=== PATIENT | female | born 1960 | race Caucasian/White ===

== ENCOUNTER 2023-08-05 08:01 | Outpatient (CLI) | payer MEDICARE, OTHER, SELFPAY ==
[2023-08-05] MEDS: 0.9% NaCl IVPB Med Flush (250 mL) 15 ML IV (08:18)
[2023-08-05] MEDS: 0.9% NaCl Peripheral Flush Adult/Peds IV ×2 (08:18→09:21)
[2023-08-05] MEDS: Ertapenem Sod 1 GM in 0.9% Normal Saline (50mL MB+) 50 ML IV (08:18)
[2023-08-05 08:24] VITALS: BP 123/78; PULSE 52; RESP 16; TEMP 36.2; O2SAT 97; BMI 34.9
[2023-08-05 09:30] VITALS: BP 118/54; PULSE 50; RESP 16; TEMP 36.4; O2SAT 97
== END 2023-08-05 08:02 | disposition home or self-care (01) ==
PROVIDERS: PCP Nurse Practitioner
DX: M86.9 Osteomyelitis, unspecified (principal)
CPT/HCPCS: 96365; J7050; A4216

== ENCOUNTER 2023-08-06 07:56 | Outpatient (CLI) | payer MEDICARE, OTHER, SELFPAY ==
[2023-08-06] MEDS: Ertapenem Sod 1 GM in 0.9% Normal Saline (50mL MB+) 50 ML IV (08:33)
[2023-08-06] MEDS: 0.9% NaCl IVPB Med Flush (250 mL) 15 ML IV (08:33)
[2023-08-06] MEDS: 0.9% NaCl Peripheral Flush Adult/Peds IV ×2 (08:33→09:22)
[2023-08-06 09:16] VITALS: BP 141/68; PULSE 60; RESP 18; TEMP 36.6; O2SAT 97
== END 2023-08-06 09:30 | disposition home or self-care (01) ==
LOC: MEDOUTP 08:03 → MS3 08:08
PROVIDERS: PCP Nurse Practitioner; Referring Provider Internal Medicine Infectious Disease; Visit Provider Internal Medicine Infectious Disease
DX: M86.9 Osteomyelitis, unspecified (principal)
CPT/HCPCS: 96365; J7050; A4216

== ENCOUNTER 2023-08-07 08:01 | Outpatient (CLI) | payer MEDICARE, OTHER, SELFPAY | END 2023-08-07 08:40 | disposition other institution (70) | LOC: MEDOUTP 08:04 → MS3 08:05 | PROVIDERS: PCP Nurse Practitioner; Visit Provider Internal Medicine Infectious Disease | DX: Z00.00 Encounter for general adult medical examination without abnormal findings (principal) ==

== ENCOUNTER 2023-08-07 08:36 | Outpatient (CLI) | payer MEDICARE, OTHER, SELFPAY ==
[2023-08-07] MEDS: 0.9% NaCl IVPB Med Flush (250 mL) 15 ML IV (07:51)
[2023-08-07] MEDS: 0.9% NaCl PICC Flush IV ×2 (07:51→08:44)
[2023-08-07] MEDS: Ertapenem Sod 1 GM in 0.9% Normal Saline (50mL MB+) 50 ML IV (07:51)
[2023-08-07 07:58] VITALS: BP 161/85; PULSE 61; RESP 18; TEMP 36.8; O2SAT 97
== END 2023-08-07 08:45 | disposition home or self-care (01) ==
LOC: MEDOUTP 08:38 → MS3 08:43
PROVIDERS: PCP Nurse Practitioner; Referring Provider Internal Medicine Infectious Disease; Visit Provider Internal Medicine Infectious Disease
DX: M86.9 Osteomyelitis, unspecified (principal)
CPT/HCPCS: 96365; J7050; A4216

== ENCOUNTER 2023-08-08 08:33 | Outpatient (CLI) | payer MEDICARE, OTHER, SELFPAY ==
[2023-08-08 08:43] VITALS: BP 171/91; PULSE 63; RESP 16; TEMP 35.9; O2SAT 98
[2023-08-08] MEDS: 0.9% NaCl PICC Flush IV ×2 (08:53→09:55)
[2023-08-08] MEDS: Ertapenem Sod 1 GM in 0.9% Normal Saline (50mL MB+) 50 ML IV (08:53)
[2023-08-08] MEDS: 0.9% NaCl IVPB Med Flush (250 mL) 15 ML IV (08:53)
[2023-08-08 09:54] VITALS: BP 150/70; PULSE 56; RESP 16; TEMP 36.3; O2SAT 98
== END 2023-08-08 08:34 | disposition home or self-care (01) ==
LOC: MEDOUTP 08:33
PROVIDERS: PCP Nurse Practitioner; Referring Provider Internal Medicine Infectious Disease; Visit Provider Internal Medicine Infectious Disease
DX: M86.9 Osteomyelitis, unspecified (principal)
CPT/HCPCS: 96365; J7050; A4216

== ENCOUNTER 2023-08-09 08:23 | Outpatient (CLI) | payer MEDICARE, OTHER, SELFPAY ==
[2023-08-09] MEDS: 0.9% NaCl IVPB Med Flush (250 mL) 15 ML IV (08:31)
[2023-08-09] MEDS: Ertapenem Sod 1 GM in 0.9% Normal Saline (50mL MB+) 50 ML IV (08:32)
[2023-08-09] MEDS: 0.9% NaCl PICC Flush IV ×2 (08:32→09:29)
[2023-08-09 08:33] VITALS: BP 145/63; PULSE 62; RESP 16; TEMP 36; O2SAT 97
[2023-08-09 09:29] VITALS: BP 134/50; PULSE 60; RESP 16; TEMP 36.2; O2SAT 97
== END 2023-08-09 08:24 | disposition home or self-care (01) ==
LOC: MEDOUTP 08:23
PROVIDERS: PCP Nurse Practitioner; Referring Provider Internal Medicine Infectious Disease; Visit Provider Internal Medicine Infectious Disease
DX: M86.9 Osteomyelitis, unspecified (principal)
CPT/HCPCS: 96365; J7050; A4216

== ENCOUNTER 2023-08-10 08:25 | Outpatient (CLI) | payer MEDICARE, OTHER, SELFPAY ==
[2023-08-10] MEDS: 0.9% NaCl PICC Flush IV ×2 (08:31→09:32)
[2023-08-10] MEDS: Ertapenem Sod 1 GM in 0.9% Normal Saline (50mL MB+) 50 ML IV (08:31)
[2023-08-10] MEDS: 0.9% NaCl IVPB Med Flush (250 mL) 15 ML IV (08:31)
[2023-08-10 08:40] VITALS: BP 131/61; PULSE 56; RESP 16; TEMP 35.6; O2SAT 98; BMI 34.9
[2023-08-10 09:33] VITALS: BP 140/73; PULSE 62; RESP 16
== END 2023-08-10 08:26 | disposition home or self-care (01) ==
LOC: MEDOUTP 08:25
PROVIDERS: PCP Nurse Practitioner; Referring Provider Internal Medicine Infectious Disease; Visit Provider Internal Medicine Infectious Disease
DX: M06.9 Rheumatoid arthritis, unspecified (principal)
CPT/HCPCS: 96365; J7050; A4216

== ENCOUNTER 2023-08-11 08:35 | Outpatient (CLI) | payer MEDICARE, OTHER, SELFPAY ==
[2023-08-11] MEDS: 0.9% NaCl PICC Flush IV ×2 (08:48→10:05)
[2023-08-11] MEDS: Ertapenem Sod 1 GM in 0.9% Normal Saline (50mL MB+) 50 ML IV (08:48)
[2023-08-11] MEDS: 0.9% NaCl IVPB Med Flush (250 mL) 15 ML IV (08:48)
[2023-08-11 08:52] VITALS: BP 123/66; PULSE 57; RESP 16; TEMP 36.2; O2SAT 96; BMI 34.9
[2023-08-11 08:59] LABS: Hematocrit 36.5 % (37-47); Mean Corp Hgb Conc 32.9 g/dL (32-36); Mean Corpuscular Hgb 32.9 pg (27.0-32.0); Mean Platelet Vol. 10.1 fl (6.2-12.0); Platelet Count 240 K/mm3 (150-450); RBC Distribution Width SD 47.1 fl (35.1-43.9); Red Blood Count 3.65 M/mm3 (4.2-5.4); White Blood Count 6.6 K/mm3 (4.4-11.0)
[2023-08-11 09:15] LABS: ALB/GLOB Ratio 0.9 RATIO (0.9-2.4); AST(SGOT) 14 U/L (15-37); Alanine Aminotransfer ALT/SGPT 25 U/L (13-56); Albumin, Serum 3.3 g/dL (3.2-5.0); Alkaline Phosphatase 50 U/L (45-117); Anion Gap 6 (5-15); BUN 19 mg/dL (7-18); BUN/Creat Ratio 19.5 RATIO (10-20); CRP 7.19 mg/L (0.0-3.0); Calcium,Total 8.8 mg/dL (8.5-10.1); Chloride 106 mmol/L (98-107); Creatinine, Serum 0.97 mg/dL (0.55-1.02); EST Glomerular Filtration Rate 61 mL/min (>60); Est Glom Filt Rate - Afr Amer 74 mL/min (>60); Estimated Creatinine Clearance 52.03 ml/min; Globulin 3.6 g/dL (2.2-4.2); Glucose 101 mg/dL (74-106); Potassium 4.2 mmol/L (3.5-5.1); Protein, Total 6.9 g/dL (6.4-8.2); Sodium Level 139 mmol/L (136-145)
[2023-08-11 10:06] VITALS: BP 125/65; PULSE 60; RESP 16; TEMP 36.3; O2SAT 97
[2023-08-11 16:55] LABS: Xtra Tube EP Lab EXTRA TUBE
== END 2023-08-11 08:36 | disposition home or self-care (01) ==
LOC: MEDOUTP 08:35
PROVIDERS: PCP Nurse Practitioner; Referring Provider Internal Medicine Infectious Disease; Visit Provider Internal Medicine Infectious Disease
DX: M86.9 Osteomyelitis, unspecified (principal)
CPT/HCPCS: 96365; 80053; 85027; 86140; J7050; A4216

== ENCOUNTER 2023-08-12 08:24 | Outpatient (CLI) | payer MEDICARE, OTHER, SELFPAY ==
[2023-08-12] MEDS: 0.9% NaCl IVPB Med Flush (250 mL) 15 ML IV (08:37)
[2023-08-12] MEDS: 0.9% NaCl PICC Flush IV ×2 (08:37→09:44)
[2023-08-12] MEDS: Ertapenem Sod 1 GM in 0.9% Normal Saline (50mL MB+) 50 ML IV (08:37)
[2023-08-12 08:40] VITALS: BP 153/71; PULSE 61; RESP 16; TEMP 36.1; O2SAT 94
[2023-08-12 09:44] VITALS: BP 143/67; PULSE 63; RESP 16; TEMP 36.4; O2SAT 96
== END 2023-08-12 08:25 | disposition home or self-care (01) ==
LOC: MEDOUTP 08:24
PROVIDERS: PCP Nurse Practitioner; Referring Provider Internal Medicine Infectious Disease; Visit Provider Internal Medicine Infectious Disease
DX: M86.9 Osteomyelitis, unspecified (principal)
CPT/HCPCS: 96365; J7050; A4216

== ENCOUNTER 2023-08-13 08:46 | Outpatient (CLI) | payer MEDICARE, OTHER, SELFPAY ==
[2023-08-13] MEDS: Ertapenem Sod 1 GM in 0.9% Normal Saline (50mL MB+) 50 ML IV (09:21)
== END 2023-08-13 10:08 | disposition home or self-care (01) ==
LOC: MEDOUTP 08:46 → PCU 08:47
PROVIDERS: PCP Nurse Practitioner; Referring Provider Internal Medicine Infectious Disease; Visit Provider Internal Medicine Infectious Disease
DX: D64.9 Anemia, unspecified (principal); K92.2 Gastrointestinal hemorrhage, unspecified
CPT/HCPCS: 96365

== ENCOUNTER 2023-08-14 08:52 | Outpatient (CLI) | payer MEDICARE, OTHER, SELFPAY ==
[2023-08-14] MEDS: Ertapenem Sod 1 GM in 0.9% Normal Saline (50mL MB+) 50 ML IV (09:16)
== END 2023-08-14 09:57 | disposition home or self-care (01) ==
LOC: MEDOUTP 08:53 → PCU 08:53
PROVIDERS: PCP Nurse Practitioner; Referring Provider Internal Medicine Infectious Disease; Visit Provider Internal Medicine Infectious Disease
DX: M86.9 Osteomyelitis, unspecified (principal)
CPT/HCPCS: 96365

== ENCOUNTER 2023-08-15 08:27 | Outpatient (CLI) | payer MEDICARE, OTHER, SELFPAY ==
[2023-08-15] MEDS: 0.9% NaCl PICC Flush IV ×2 (08:35→09:41)
[2023-08-15] MEDS: 0.9% NaCl IVPB Med Flush (250 mL) 15 ML IV (08:36)
[2023-08-15 08:38] VITALS: BP 178/78; PULSE 59; RESP 16; TEMP 36.6
[2023-08-15] MEDS: Ertapenem Sod 1 GM in 0.9% Normal Saline (50mL MB+) 50 ML IV (08:42)
[2023-08-15 09:41] VITALS: BP 143/66; PULSE 56; RESP 16; TEMP 36.2
== END 2023-08-15 08:28 | disposition home or self-care (01) ==
LOC: MEDOUTP 08:27
PROVIDERS: PCP Nurse Practitioner; Referring Provider Internal Medicine Infectious Disease; Visit Provider Internal Medicine Infectious Disease
DX: M86.9 Osteomyelitis, unspecified (principal)
CPT/HCPCS: 96365; J7050; A4216

== ENCOUNTER 2023-08-16 08:38 | Outpatient (CLI) | payer MEDICARE, OTHER, SELFPAY ==
[2023-08-16 08:49] VITALS: BP 132/59; PULSE 73; RESP 16; TEMP 36.2; O2SAT 96
[2023-08-16] MEDS: 0.9% NaCl PICC Flush IV ×2 (08:54→09:46)
[2023-08-16] MEDS: Ertapenem Sod 1 GM in 0.9% Normal Saline (50mL MB+) 50 ML IV (08:54)
[2023-08-16] MEDS: 0.9% NaCl IVPB Med Flush (250 mL) 15 ML IV (08:54)
[2023-08-16 09:49] VITALS: BP 139/58; PULSE 65; RESP 16; TEMP 36.2; O2SAT 97
== END 2023-08-16 08:39 | disposition home or self-care (01) ==
LOC: MEDOUTP 08:38
PROVIDERS: PCP Nurse Practitioner; Referring Provider Internal Medicine Infectious Disease; Visit Provider Internal Medicine Infectious Disease
DX: M86.9 Osteomyelitis, unspecified (principal)
CPT/HCPCS: 96365; J7050; A4216

== ENCOUNTER 2023-08-17 08:25 | Outpatient (CLI) | payer MEDICARE, OTHER, SELFPAY ==
[2023-08-17] MEDS: 0.9% NaCl IVPB Med Flush (250 mL) 15 ML IV (08:31)
[2023-08-17] MEDS: 0.9% NaCl PICC Flush IV ×2 (08:31→09:33)
[2023-08-17] MEDS: Ertapenem Sod 1 GM in 0.9% Normal Saline (50mL MB+) 50 ML IV (08:33)
[2023-08-17 08:35] VITALS: BP 142/64; PULSE 61; RESP 16; TEMP 36.3; O2SAT 97
[2023-08-17 09:33] VITALS: BP 134/67; PULSE 65; RESP 16; TEMP 36.2; O2SAT 95
== END 2023-08-17 08:26 | disposition home or self-care (01) ==
LOC: MEDOUTP 08:25
PROVIDERS: PCP Nurse Practitioner; Referring Provider Internal Medicine Infectious Disease; Visit Provider Internal Medicine Infectious Disease
DX: M86.9 Osteomyelitis, unspecified (principal)
CPT/HCPCS: 96365; J7050; A4216

== ENCOUNTER 2023-08-18 08:31 | Outpatient (CLI) | payer MEDICARE, OTHER, SELFPAY ==
[2023-08-18] MEDS: 0.9% NaCl PICC Flush IV ×2 (08:53→09:49)
[2023-08-18] MEDS: Ertapenem Sod 1 GM in 0.9% Normal Saline (50mL MB+) 50 ML IV (08:53)
[2023-08-18] MEDS: 0.9% NaCl IVPB Med Flush (250 mL) 15 ML IV (08:53)
[2023-08-18 08:58] VITALS: BP 127/65; PULSE 58; RESP 16; TEMP 36.2; O2SAT 97; BMI 34.9
[2023-08-18 09:11] LABS: Hematocrit 36.3 % (37-47); Hemoglobin 11.7 g/dL (12.0-15.0); Mean Corp Hgb Conc 32.2 g/dL (32-36); Mean Corpuscular Hgb 31.9 pg (27.0-32.0); Mean Corpuscular Volume 98.9 fL (81-99); Mean Platelet Vol. 10.4 fl (6.2-12.0); Platelet Count 314 K/mm3 (150-450); RBC Distribution Width SD 46.1 fl (35.1-43.9); Red Blood Count 3.67 M/mm3 (4.2-5.4)
[2023-08-18 09:24] LABS: ALB/GLOB Ratio 0.9 RATIO (0.9-2.4); AST(SGOT) 17 U/L (15-37); Alanine Aminotransfer ALT/SGPT 27 U/L (13-56); Albumin, Serum 3.1 g/dL (3.2-5.0); Alkaline Phosphatase 55 U/L (45-117); Anion Gap 6 (5-15); BUN 17 mg/dL (7-18); BUN/Creat Ratio 18.1 RATIO (10-20); Chloride 105 mmol/L (98-107); Creatinine, Serum 0.94 mg/dL (0.55-1.02); EST Glomerular Filtration Rate 63 mL/min (>60); Est Glom Filt Rate - Afr Amer 77 mL/min (>60); Estimated Creatinine Clearance 53.69 ml/min; Globulin 3.6 g/dL (2.2-4.2); Glucose 111 mg/dL (74-106); Potassium 4.1 mmol/L (3.5-5.1); Protein, Total 6.7 g/dL (6.4-8.2); Sodium Level 139 mmol/L (136-145)
[2023-08-18 09:51] VITALS: BP 128/61; PULSE 65
[2023-08-18 17:05] LABS: Xtra Tube EP Lab EXTRA TUBE
== END 2023-08-18 08:32 | disposition home or self-care (01) ==
LOC: MEDOUTP 08:31
PROVIDERS: PCP Nurse Practitioner; Referring Provider Internal Medicine Infectious Disease; Visit Provider Internal Medicine Infectious Disease
DX: M86.9 Osteomyelitis, unspecified (principal)
CPT/HCPCS: 96365; 36415; 80053; 85027; 86140; J7050; A4216

== ENCOUNTER 2023-08-19 09:09 | Outpatient (CLI) | payer MEDICARE, OTHER, SELFPAY ==
[2023-08-19 09:19] VITALS: BP 142/75; PULSE 64; RESP 16; TEMP 36.2; O2SAT 96
[2023-08-19] MEDS: 0.9% NaCl IVPB Med Flush (250 mL) 15 ML IV (09:21)
[2023-08-19] MEDS: 0.9% NaCl PICC Flush IV ×2 (09:21→10:34)
[2023-08-19] MEDS: Ertapenem Sod 1 GM in 0.9% Normal Saline (50mL MB+) 50 ML IV (09:33)
[2023-08-19 10:34] VITALS: BP 135/60; PULSE 72
== END 2023-08-19 09:10 | disposition home or self-care (01) ==
LOC: MEDOUTP 09:09
PROVIDERS: PCP Nurse Practitioner; Referring Provider Internal Medicine Infectious Disease; Visit Provider Internal Medicine Infectious Disease
DX: M86.9 Osteomyelitis, unspecified (principal)
CPT/HCPCS: 96365; J7050; A4216

== ENCOUNTER 2023-08-20 08:37 | Outpatient (CLI) | payer MEDICARE, OTHER, SELFPAY ==
[2023-08-20] MEDS: Ertapenem Sod 1 GM in 0.9% Normal Saline (50mL MB+) 50 ML IV (08:53)
[2023-08-20] MEDS: 0.9% NaCl IVPB Med Flush (250 mL) 15 ML IV (08:55)
[2023-08-20] MEDS: 0.9% NaCl PICC Flush IV ×2 (08:56→09:44)
[2023-08-20 09:03] VITALS: BP 124/72; PULSE 67; RESP 17; TEMP 36.7; O2SAT 93
== END 2023-08-20 09:54 | disposition home or self-care (01) ==
LOC: MEDOUTP 08:38 → MS3 08:38
PROVIDERS: PCP Nurse Practitioner; Referring Provider Internal Medicine Infectious Disease; Visit Provider Internal Medicine Infectious Disease
DX: M86.9 Osteomyelitis, unspecified (principal)
CPT/HCPCS: 96365; J7050; A4216

== ENCOUNTER 2023-08-21 08:48 | Outpatient (CLI) | payer MEDICARE, OTHER, SELFPAY ==
[2023-08-21] MEDS: 0.9% NaCl PICC Flush IV ×2 (08:40→09:33)
[2023-08-21] MEDS: 0.9% NaCl IVPB Med Flush (250 mL) 100 ML IV (08:40)
[2023-08-21] MEDS: Ertapenem Sod 1 GM in 0.9% Normal Saline (50mL MB+) 50 ML IV (08:51)
[2023-08-21 08:55] VITALS: BP 122/69; PULSE 61; RESP 16; TEMP 36.6; O2SAT 97
== END 2023-08-21 09:38 | disposition home or self-care (01) ==
LOC: MEDOUTP 08:49 → MS3 08:49
PROVIDERS: PCP Nurse Practitioner; Referring Provider Internal Medicine Infectious Disease; Visit Provider Internal Medicine Infectious Disease
DX: M86.9 Osteomyelitis, unspecified (principal)
CPT/HCPCS: 96365; J7050; A4216

== ENCOUNTER 2023-08-22 08:25 | Outpatient (CLI) | payer MEDICARE, OTHER, SELFPAY ==
[2023-08-22 08:41] VITALS: BP 133/78; PULSE 62; RESP 16; TEMP 36.4; O2SAT 94; BMI 34.9
[2023-08-22] MEDS: 0.9% NaCl IVPB Med Flush (250 mL) 15 ML IV (08:55)
[2023-08-22] MEDS: Ertapenem Sod 1 GM in 0.9% Normal Saline (50mL MB+) 50 ML IV (08:55)
[2023-08-22 10:02] VITALS: BP 141/73; PULSE 64; RESP 16; TEMP 36.2; O2SAT 94
== END 2023-08-22 08:26 | disposition home or self-care (01) ==
LOC: MEDOUTP 08:25
PROVIDERS: PCP Nurse Practitioner; Referring Provider Internal Medicine Infectious Disease; Visit Provider Internal Medicine Infectious Disease
DX: M86.9 Osteomyelitis, unspecified (principal)
CPT/HCPCS: 96365; J7050; A4216

== ENCOUNTER 2023-08-23 08:32 | Outpatient (CLI) | payer MEDICARE, OTHER, SELFPAY ==
[2023-08-23 08:42] VITALS: BP 146/81; PULSE 70; RESP 16; TEMP 35.9; O2SAT 94; BMI 34.9
[2023-08-23] MEDS: Ertapenem Sod 1 GM in 0.9% Normal Saline (50mL MB+) 50 ML IV (08:45)
[2023-08-23] MEDS: 0.9% NaCl IVPB Med Flush (250 mL) 15 ML IV (08:45)
[2023-08-23] MEDS: 0.9% NaCl PICC Flush IV ×2 (08:45→09:41)
[2023-08-23 09:43] VITALS: BP 150/68; PULSE 71; RESP 16
== END 2023-08-23 08:33 | disposition home or self-care (01) ==
LOC: MEDOUTP 08:32
PROVIDERS: PCP Nurse Practitioner; Referring Provider Internal Medicine Infectious Disease; Visit Provider Internal Medicine Infectious Disease
DX: M86.9 Osteomyelitis, unspecified (principal)
CPT/HCPCS: 96365; J7050; A4216

== ENCOUNTER 2023-08-24 08:39 | Outpatient (CLI) | payer MEDICARE, OTHER, SELFPAY ==
[2023-08-24] MEDS: 0.9% NaCl IVPB Med Flush (250 mL) 15 ML IV (08:49)
[2023-08-24] MEDS: 0.9% NaCl PICC Flush IV ×2 (08:49→09:54)
[2023-08-24] MEDS: Ertapenem Sod 1 GM in 0.9% Normal Saline (50mL MB+) 50 ML IV (08:49)
[2023-08-24 08:55] VITALS: BP 148/58; PULSE 75; RESP 16; TEMP 36.3; O2SAT 97
[2023-08-24 09:55] VITALS: BP 151/88; PULSE 68; RESP 16; TEMP 36.3; O2SAT 97
== END 2023-08-24 08:40 | disposition home or self-care (01) ==
LOC: MEDOUTP 08:39
PROVIDERS: PCP Nurse Practitioner; Referring Provider Internal Medicine Infectious Disease; Visit Provider Internal Medicine Infectious Disease
DX: M86.9 Osteomyelitis, unspecified (principal)
CPT/HCPCS: 96365; J7050; A4216

== ENCOUNTER 2023-08-25 08:04 | Outpatient (CLI) | payer MEDICARE, OTHER, SELFPAY ==
[2023-08-25] MEDS: 0.9% NaCl PICC Flush IV ×2 (08:11→09:30)
[2023-08-25] MEDS: 0.9% NaCl IVPB Med Flush (250 mL) 15 ML IV (08:12)
[2023-08-25] MEDS: Ertapenem Sod 1 GM in 0.9% Normal Saline (50mL MB+) 50 ML IV (08:27)
[2023-08-25 08:29] VITALS: BP 162/63; PULSE 74; RESP 16; TEMP 36.4
[2023-08-25 08:38] LABS: Hematocrit 37.5 % (37-47); Hemoglobin 12.4 g/dL (12.0-15.0); Mean Corp Hgb Conc 33.1 g/dL (32-36); Mean Corpuscular Hgb 32.3 pg (27.0-32.0); Mean Corpuscular Volume 97.7 fL (81-99); Mean Platelet Vol. 10.6 fl (6.2-12.0); Platelet Count 228 K/mm3 (150-450); RBC Distribution Width CV 12.9 % (11.6-14.6); Red Blood Count 3.84 M/mm3 (4.2-5.4); White Blood Count 6.2 K/mm3 (4.4-11.0)
[2023-08-25 08:44] LABS: ALB/GLOB Ratio 0.9 RATIO (0.9-2.4); AST(SGOT) 20 U/L (15-37); Alanine Aminotransfer ALT/SGPT 29 U/L (13-56); Albumin, Serum 3.4 g/dL (3.2-5.0); Alkaline Phosphatase 55 U/L (45-117); Anion Gap 7 (5-15); BUN 14 mg/dL (7-18); CRP 8.67 mg/L (0.0-3.0); Calcium,Total 9.1 mg/dL (8.5-10.1); Chloride 103 mmol/L (98-107); EST Glomerular Filtration Rate 59 mL/min (>60); Est Glom Filt Rate - Afr Amer 71 mL/min (>60); Globulin 3.7 g/dL (2.2-4.2); Glucose 119 mg/dL (74-106); Potassium 4.3 mmol/L (3.5-5.1); Protein, Total 7.1 g/dL (6.4-8.2); Sodium Level 137 mmol/L (136-145)
[2023-08-25 09:30] VITALS: BP 139/57; PULSE 68; RESP 16; TEMP 36.6; O2SAT 96
== END 2023-08-25 08:05 | disposition home or self-care (01) ==
LOC: MEDOUTP 08:04
PROVIDERS: PCP Nurse Practitioner; Referring Provider Internal Medicine Infectious Disease; Visit Provider Internal Medicine Infectious Disease
DX: M86.9 Osteomyelitis, unspecified (principal)
CPT/HCPCS: 96365; 36592; 80053; 85027; 86140; J7050; A4216

== ENCOUNTER 2023-08-26 08:36 | Outpatient (CLI) | payer MEDICARE, OTHER, SELFPAY ==
[2023-08-26 08:47] VITALS: BP 146/79; PULSE 78; RESP 16; TEMP 36.1; O2SAT 96
[2023-08-26] MEDS: 0.9% NaCl PICC Flush IV ×2 (08:51→09:56)
[2023-08-26] MEDS: Ertapenem Sod 1 GM in 0.9% Normal Saline (50mL MB+) 50 ML IV (08:51)
[2023-08-26] MEDS: 0.9% NaCl IVPB Med Flush (250 mL) 15 ML IV (08:51)
[2023-08-26 09:58] VITALS: BP 152/53; PULSE 65; RESP 16; TEMP 36.2; O2SAT 98
== END 2023-08-26 08:37 | disposition home or self-care (01) ==
LOC: MEDOUTP 08:36
PROVIDERS: PCP Nurse Practitioner; Referring Provider Internal Medicine Infectious Disease; Visit Provider Internal Medicine Infectious Disease
DX: M86.9 Osteomyelitis, unspecified (principal)
CPT/HCPCS: 96365; J7050; A4216

== ENCOUNTER 2023-08-27 08:12 | Outpatient (CLI) | payer MEDICARE, OTHER, SELFPAY ==
[2023-08-27] MEDS: 0.9% NaCl IVPB Med Flush (250 mL) 15 ML IV (08:25)
[2023-08-27] MEDS: Ertapenem Sod 1 GM in 0.9% Normal Saline (50mL MB+) 50 ML IV (08:25)
[2023-08-27 08:33] VITALS: BP 134/78; PULSE 61; RESP 18; TEMP 36.4; O2SAT 99
[2023-08-27] MEDS: 0.9% NaCl PICC Flush IV (09:15)
== END 2023-08-27 09:20 | disposition home or self-care (01) ==
LOC: MEDOUTP 08:13 → MS3 08:17
PROVIDERS: PCP Nurse Practitioner; Referring Provider Internal Medicine Infectious Disease; Visit Provider Internal Medicine Infectious Disease
DX: M86.9 Osteomyelitis, unspecified (principal)
CPT/HCPCS: 96365; J7050; A4216

== ENCOUNTER 2023-08-28 08:02 | Outpatient (CLI) | payer MEDICARE, OTHER, SELFPAY ==
[2023-08-28] MEDS: Ertapenem Sod 1 GM in 0.9% Normal Saline (50mL MB+) 50 ML IV (08:06)
[2023-08-28] MEDS: 0.9% NaCl PICC Flush IV ×2 (08:07→08:57)
[2023-08-28] MEDS: 0.9% NaCl IVPB Med Flush (250 mL) 15 ML IV (08:07)
[2023-08-28 08:16] VITALS: BP 144/61; PULSE 77; RESP 18; TEMP 36.7; O2SAT 95
== END 2023-08-28 09:00 | disposition home or self-care (01) ==
LOC: MEDOUTP 08:02 → MS3 08:03
PROVIDERS: PCP Nurse Practitioner; Referring Provider Internal Medicine Infectious Disease; Visit Provider Internal Medicine Infectious Disease
DX: M86.9 Osteomyelitis, unspecified (principal)
CPT/HCPCS: 96365; J7050; A4216

== ENCOUNTER 2023-08-29 08:00 | Outpatient (CLI) | payer MEDICARE, OTHER, SELFPAY ==
[2023-08-29] MEDS: 0.9% NaCl IVPB Med Flush (250 mL) 15 ML IV (08:10)
[2023-08-29] MEDS: 0.9% NaCl PICC Flush IV ×2 (08:10→09:12)
[2023-08-29] MEDS: Ertapenem Sod 1 GM in 0.9% Normal Saline (50mL MB+) 50 ML IV (08:13)
[2023-08-29 08:14] VITALS: BP 137/60; PULSE 73; RESP 16; TEMP 36.5; O2SAT 95
[2023-08-29 09:13] VITALS: BP 133/76; PULSE 69; RESP 16; TEMP 36.4
[2023-08-29 09:16] LABS: Hematocrit 37.9 % (37-47); Hemoglobin 12.2 g/dL (12.0-15.0); Mean Corp Hgb Conc 32.2 g/dL (32-36); Mean Corpuscular Hgb 32.1 pg (27.0-32.0); Mean Corpuscular Volume 99.7 fL (81-99); Mean Platelet Vol. 10.7 fl (6.2-12.0); Platelet Count 194 K/mm3 (150-450); RBC Distribution Width CV 13.2 % (11.6-14.6); RBC Distribution Width SD 47.7 fl (35.1-43.9); White Blood Count 5.7 K/mm3 (4.4-11.0)
[2023-08-29 09:26] LABS: Erythrocyte Sedimentation Rate 17 mm/hr (0-30)
[2023-08-29 09:38] LABS: Anion Gap 9 (5-15); BUN 17 mg/dL (7-18); BUN/Creat Ratio 17.2 RATIO (10-20); Chloride 103 mmol/L (98-107); Creatinine, Serum 0.99 mg/dL (0.55-1.02); EST Glomerular Filtration Rate 60 mL/min (>60); Est Glom Filt Rate - Afr Amer 72 mL/min (>60); Glucose 194 mg/dL (74-106); Potassium 3.4 mmol/L (3.5-5.1); Sodium Level 140 mmol/L (136-145)
== END 2023-08-29 08:01 | disposition home or self-care (01) ==
LOC: MEDOUTP 08:00
PROVIDERS: PCP Nurse Practitioner; Referring Provider Internal Medicine Infectious Disease; Visit Provider Internal Medicine Infectious Disease
DX: M86.9 Osteomyelitis, unspecified (principal)
CPT/HCPCS: 96365; 36592; 80048; 85027; 85652; 86140; J7050; A4216

== ENCOUNTER 2025-09-14 15:53 | Inpatient (IN) | payer MEDICARE, OTHER, SELFPAY ==
[2025-09-14] VITALS (7 sets, daily range): BP systolic 96–142; BP diastolic 47–57; PULSE 55–70; RESP 16–20; TEMP 36.3–36.6; O2SAT 94–100; BMI 32.9; BMI 30.9
--- NOTE | 2025-09-14 16:56 | EDS_ITS ---
HPI History of Present Illness Chief Complaint: ETOH Intox Informant: patient and family Narrative Narrative: 65-year-old female presenting to the emergency room out of concerns for alcohol use disorder. Family states that she was found on the ground today intoxicated. Over the summer she was apparently pink slipped to a facility in [place]. She states there was a horrible experience for her and family concurs. Patient reportedly at that time had thoughts of suicide related to her 's recent suicide himself. She has had loss of an adult child and her daughter. She states that she does not take any blood thinners but previous chart notes that s he had been on Eliquis at 1 point. She states she has had a prior stroke. Patient denies any known trauma from her fall but is not clear how she got there. She states that she cannot drink because she wants to. She states that most days she does not drink until 2000 hours. However some days she drinks all day long. Over the past 3 days she states she has been mostly on the couch. When asked about her medical history she states that she has the basics. When asked to tell me what those basics are she tells me hypertension. Later she tells me that she has had a history of cancer non-Hodgkin's lymphoma CLL. When asked about her bowel movements she states that her normal. She got tell me black bloody formed liquid. Patient admits to drinking today. [facility] Medical History (Updated 09/14/25 @ 18:[address] 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 Home Medications ?Medication ?Instructions ?Recorded ?Last Taken ?Type magnesium oxide 400 mg (241.3 mg 400 mg PO DAILY 04/08 Unknown History magnesium) tablet omeprazole 20 mg capsule,delayed 20 mg PO DAILY Unknown History release pravastatin 40 mg tablet 40 mg PO DAILY 11/10/15 Unkn own History mometasone 220 mcg/actuation(60 220 mcg inhalation BID 02/04/16 Unknown History doses) breath activated powder inhaler (Asmanex Twisthaler) allopurinol 100 mg tablet 100 mg PO DAILY 08/05/23 Unk nown History baclofen 10 mg tablet 5 - 10 mg PO TID PRN PRN mus deonte 09/14/25 Unknown History spasm carvedilol 12.5 mg tablet 12.5 mg PO BID 09/14/25 Unkn own History cetirizine 10 mg tablet (24Hour 10 mg PO DAILY PRN all ergies 09/14/25 Unknown History Allergy) diazepam 5 mg tablet 5 mg PO TID 09/14/25 Unknown History fenofibrate 160 mg tablet 160 mg PO DAILY 09/14/25 Unk nown History folic acid 1 mg tablet 1 mg PO DAILY 09/14/25 Unkno wn History omega-3 acid ethyl esters 1 gram 2 cap PO BID 09/14/25 Unknown History capsule pantoprazole 40 mg tablet,delayed 40 mg PO BID 5 Unknown History release trazodone 100 mg tablet 100 mg PO QHS 09/14/25 Unkno wn History triamterene 37.5 1 cap PO DAILY 09/14/25 Unkn own History mg-hydrochlorothiazide 25 mg capsule Allergy/AdvReac Type Severity Reaction Status Date / Time No Known Allergies Allergy Verified 09/14/25 15:59 Social History Smoking Status: Never smoker ROS ROS ED Constitutional Constitutional ED: Denies chills or weight loss Eyes Eyes: Denies change in vision or diplopia ENT ENT ED: Denies ear pain, rhinorrhea or sore throat Cardiovascular Cardiovascular: Denies chest pain, orthopnea, palpitations or racing heartbeat Respiratory/Chest Respiratory/Chest: Denies cough, dyspnea or orthopnea Gastrointestinal Gastrointestinal: Denies abdominal pain, diarrhea, nausea or vomiting Genitourinary Genitourinary ED: Denies dysuria, hematuria or urinary frequency Musculoskeletal Musculoskeletal: Denies arthralgias or myalgias Integumentary Denies abscess or rash Neurologic Neurologic: Denies headache(s) or weakness Psychiatric Psychiatric: Reports anxiety and depression; Denies suicidal ideation or suicidal thoughts Endocrine Endocrinology: Denies polydipsia, polyphagia or polyuria Allergic/Immunologic Allergic/Immunologic ED: Denies mouth swelling, tongue swelling or urticaria EXAM Physical Exam Const Vital Signs: 09/14/25 15:55 09/14/25 16:55 09/14/25 17:00 Temperature 97.4 F L Temperature Source Temporal Pulse Rate 55 L 62 64 Respiratory Rate 16 18 18 Blood Pressure 96/47 L 113/53 L 113/53 L Blood Pressure Mean 63 73 73 Pulse Ox 96 100 99 Oxygen Delivery Method Room Air Room Air 09/14/25 17:45 09/14/25 18:00 Temperature Temperature Source Pulse Rate 64 70 Respiratory Rate 17 16 Blood Pressure 103/55 L 117/53 L Blood Pressure Mean 69 74 Pulse Ox 99 99 Oxygen Delivery Method Room Air Positive well nourished, well developed and obese General Appearance ED: well developed and NAD Nutritional Appearance: obese HEENT Reports normocephalic, head/scalp atraumatic and moist mucous membranes Eyes PERRL and EOMs intact bilaterally Neck no lymphadenopathy, supple and no JVD Resp normal respiratory effort and clear to auscultation bilaterally Cardio regular rate, regular rhythm and no murmurs GI normal to inspection, nondistended, normoactive bowel sounds and non-tender Palpation: soft Back/Spine no CVA tenderness and normal ROM Extremity normal to inspection General Extremety ED: Negative for edema General Extremity: Negative for edema Neuro oriented x3 and CN's II-XII intact bilaterally Neuro Narrative: Patient does slur her words. She appears intoxicated with alcohol. Sensorium / Orientation: alert Motor Exam: strength 5/5 throughout Psych Mood & Affect: depressed, anxious and tearful Skin no rashes or lesions noted and no wounds MDM MDM MDM Narrative Medical decision making narrative: Differential diagnosis includes but not limited to alcohol use disorder alcohol withdrawal thrombocytopenia coagulopathy liver dysfunction Co. ingestion electrolyte abnormalities Basic blood work was obtained shows a white count 3.8 hemoglobin 13 platelet count is 185. Slight elevation in the AST and ALT normal bilirubin. Normal INR. Toxicology shows a alcohol level of 199. Positive for benzodiazepines but she has prescribed them. Patient agrees to the inpatient rules at this time for alcohol detox program. History & Record Review Discussion w/independent historian: Patient Lab Data Attestation: I reviewed the patient's lab results. Labs: Laboratory Results - last 24 hr 09/14/25 09/14/25 17:06 17:38 WBC 3.8 L RBC 4.16 L Hgb 13.0 Hct 39.7 MCV 95.4 MCH 31.3 MCHC 32.7 RDW Std Deviation 51.9 H RDW Coeff of Jerrod 14.7 H Plt Count 185 MPV 9.8 Immature Gran % (Auto) 0.300 Neut % (Auto) 32.2 L Lymph % (Auto) 56.9 H [place] % (Auto) 9.0 Eos % (Auto) 0.5 Baso % (Auto) 1.1 H Absolute Neuts (auto) 1.2 L Absolute Lymphs (auto) 2.14 Nucleated RBC % 0 PT 12.7 INR 0.9 Sodium 135 Potassium 3.8 Chloride 97 L Carbon Dioxide 24.8 Anion Gap 13 BUN 6 Creatinine 0.73 Estim Creat Clear Calc 75.49 Est GFR (MDRD) Non-Af 91 BUN/Creatinine Ratio 8.1 L Glucose 100 H Calcium 8.7 Magnesium 1.9 Total Bilirubin 0.23 Direct Bilirubin 0.15 AST 55 H ALT 40 H Alkaline Phosphatase 80 Total Protein 6.4 Albumin 3.9 Globulin 2.5 Urine Color Yellow Urine Clarity Clear Urine pH 7.0 Ur Specific [place] 1.010 Urine Protein Negative Urine Glucose (UA) Normal Urine Ketones Negative Urine Occult Blood Negative Urine Nitrite Negative Urine Bilirubin Negative Urine Urobilinogen Normal Ur Leukocyte Esterase Negative Urine RBC Not Reportable Urine WBC 0-5 SEEN Ur Squamous Epith Cells 0-5 SEEN Urine Bacteria RARE Urine Mucus 0 SEEN Urine Opiates Screen NEGATIVE U Buprenorphine Qual NEGATIVE Ur Oxycodone Screen NEGATIVE Urine Methadone Screen NEGATIVE Urine Fentanyl Screen NEGATIVE Ur Barbiturates Screen NEGATIVE Ur Phencyclidine Scrn NEGATIVE Ur Amphetamines Screen NEGATIVE U Benzodiazepines Scrn PRESUMPTIVE POSITIVE Urine Cocaine Screen NEGATIVE U Cannabinoids Screen NEGATIVE Ethyl Alcohol 199.0 H Management Discussion w/another healthcare provider: Hospitalist (Dr. Orozco) Discharge Plan Dx/Rx/DC Orders Clinical Impression: Alcohol intoxication, Alcohol use disorder Disposition Disposition: Acute Care Hospital [facility]
--- OUTSIDE RECORDS SUMMARY | 2025-09-14 17:03 | XMS RPT_ITS | CCD ---
Author Organization [facility] ion Partnership [facility] Care Team Providers Care Switchboard Installer Name Role Phone Elaine Oquendo Unavailable Erich Garcia Unavailable Stu Lei Unavailable Skyler Joya Unavailable Myrtle Kay Unavailable Unavailable Dragan Weiner Unavailable Unavailable Unavailable Unavailable Fernie Paredes DO Primary Care Provider Aftab Hernández Unavailable [phone] Naty Bhakta MD Unavailable [phone] Fernie Paredes DO Primary Care Provider Fernie Paredes Unavailable Aftab Hernández Unavailable Naty Bhakta MD Unavailable [phone] Fernie Paredes DO Primary Care Provider Roxann Yan MD Primary Care Provider Fernie Paredes Unavailable Unavailable Larry Ervin Unavailable Unavailabl Roxann Dahl MD Primary Care Provider Fernie Paredes DO Primary Care Provider Zakiya, Dr. Isreal Burrell Attending Kevin Faith, Dr. Fernie Slaughter Primary Care Rosy Paredes, Dr. Fernie Slaughter Primary Care Rosy Sigala, Dr. Isreal Burrell Attending Kevin Faith, Dr. Fernie Slaughter Primary Care Rosy Sigala, Dr. Isreal Burrell Attending Kevin Faith, Dr. Fernie Slaughter Primary Care Unava ilable Siegal, Dr. Isreal Burrell Attending Unavailab le Siegal, Dr. Isreal Burrell Attending Unavailab le Reggie, Dr. Fernie Slaughter Primary Care Unava ilable Siegal, Dr. Isreal Burrell Attending Unavailab le Reggie, Dr. Fernie Slaughter Primary Care Unava ilable Siegal, Dr. Isreal Burrell Attending Unavailab le Reggie, Dr. Fernie Slaughter Primary Care Unava ilable LeMLarry del toro Attending Unavaila ble Brown, Dr. Fernie Slaughter Primary Care Unava ilable Siegal, Dr. Isreal Burrell Attending Unavailab le Reggie, Dr. Fernie Slaughter Primary Care Unava ilable Siegal, Dr. Isreal Burrell Attending Unavailab miguel angel Paredes, Dr. Fernie Slaughter Primary Care Marthava ilFERNIE Henderson Primary Care Unavailable JESUSITA SCHREIBER Attending UnavailASAD Alcazar Attending Marthava ilFERNIE Henderson Primary Care Unavailable Jerzy PERKINS, Aftab Mcgill Unavailable Naty Bhakta MD Unavailable [phone] Fernie Paredes DO Primary Care Provider [phone] Fernie Paredes DO Primary Care Provider Unavail able Akua Warren OD Unavailable [phone] Perry Reyna Unavailable [phone] Fernie Paredes DO Primary Care Provider Cies[employer]OD[employer], [facility] Primary Care Unavailable Bre, Monse Referring Unavailable [place], Monse Attending Unavailable [employer], [facility] Primary Care Unavailable [place], Monse Attending Unavailable Bre, Monse Referring Unavailable [employer]OD[employer], [facility] Primary Care Unavailable Bre, Monse Attending Unavailable Bre, Monse Referring Unavailable Bre, Monse Attending Unavailable [employer]OD[employer], [facility] Primary Care Unavailable [place], Monse Referring Unavailable [employer] PROD[employer]ER, [facility] Care Unavailable Bre, Monse Attending Unavailable [place], Monse Referring Unavailable [employer]OD[employer], [facility] Primary Care Unavailable [place], Monse Referring Unavailable Bre, Monse Attending Unavailable [employer]OD[employer], Elaine Primary Care Unavailable Bre, Monse Referring Unavailable Bre, Monse Attending Unavailable [employer]OD[employer], [facility] Unavailable Bre, Monse Referring Unavailable Bre, Monse Attending Unavailable [employer], [facility] Unavailable [place], Monse Referring Unavailable [place], Monse Attending Unavailable [employer], [facility] Unavailable Bre, Monse Referring Unavailable Bre, Monse Attending Unavailable [employer]OD[employer], [facility] Care Unavailable [place], Monse Referring Unavailable Bre, Monse Attending Unavailable [employer]OD[employer], [facility] Unavailable [place], Monse Attending Unavailable [place], Monse Referring Unavailable [employer], [facility] Unavailable JOHN, ADAMSON Attending Unavailable JOHN, ADAMSON Referring Unavailable [employer]OD[employer], [facility] Unavailable [place], Monse Attending Unavailable Bre, Monse Referring Unavailable [employer]OD[employer], [facility] Unavailable [place], Monse Referring Unavailable Bre, Monse Attending Unavailable [employer]OD[employer], [facility] Unavailable Bre, Monse Referring Unavailable [place], Monse Attending Unavailable [employer], [facility] Unavailable [place], Monse Referring Unavailable [place], Monse Attending Unavailable [employer]OD[employer], [facility] Unavailable [place], Monse Attending Unavailable Bre, Monse Referring Unavailable [employer] PROD[employer], [facility] Care Unavailable [place], Monse Referring Unavailable [place], Monse Attending Unavailable [employer]OD[employer], [facility] Unavailable Bre, Monse Attending Unavailable Bre, Monse Referring Unavailable [employer]OD[employer], [facility] Unavailable [place], Monse Attending Unavailable Bre, Monse Referring Unavailable Bre, Monse Attending Unavailable [employer], [facility] Unavailable [place], Monse Referring Unavailable [employer], [facility] Unavailable Bre, Monse Attending Unavailable EDDI RANDHAWA Referring Unavailable FERNIE PAREDES Primary Care Unavailable MANOHAR RAO Attending Unavailable ROGELIO TORIBIO Consulting Unavailabl LUKE Colbert Admitting Unavailable FERNIE PAREDES Primary Care Unavailable FERNIE PAREDES Primary Care Unavailable ELANA GARCIA Admitting Unavailable DEONDRE LORENZ M.D. Consulting Unavailabl MARTELL Osorio Attending Unavailable Aftab Hernández Unavailable Naty Bhakta MD Unavailable [phone] Fernie Paredes DO M Primary Care Provider Brown DO Fernie M. Primary Care Provider Yumiko Delilah DAVALOS Skyler Unavailable [phone] BROWN FERNIE M. Primary Care Unavailable NEGRITO, ATISH P Referring Unavailable NEGRITO, ATISH P Attending Unavailable BROWN, FERNIE M. Primary Care Unavailable BROWN, FERNIE M. Primary Care Unavailable NEGRITO, ATISH P Attending Unavailable NEGRITO, ATISH P Admitting Unavailable BROWN, FERNIE M. Primary Care Unavailable NEGRITO, ATISH P Referring Unavailable NEGRITO, ATISH P Attending Unavailable BROWN, FERNIE M. Primary Care Unavailable BROWN, FERNIE M. Primary Care Unavailable AGUILAR ALEXANRDA Referring Unavailable Brown DO Fernie M Primary Care Provider NATY BHAKTA Attending Unavailable BROWN, FERNIE M Referring Unavailable BROWN, FERNIE M Primary Care Unavailable Lucinda Hernándezd M Unavailable [phone] NEGRITO, ATISH P Attending Unavailable BROWN, FERNIE M. Primary Care Unavailable BROWN, FERNIE M. Primary Care Unavailable KENTOSHROSE MARY Attending Unavaila ble BROWN, FERNIE M. Primary Care Unavailable KENTOSHROSE MARY Attending Unavaila ble BROWN, FERNIE M. Primary Care Unavailable KENTOSHROSE MARY Attending Unavaila ble BROWN, FERNIE M. Primary Care Unavailable BRIAN BRUSH Attending Unavailable BROWN, FERNIE M. Primary Care Unavailable BRIAN BURSH Attending Unavailable BROWN, FERNIE M. Primary Care Unavailable AGUILAR ALEXANDRA Attending Unavailable SIEGAL, ISREAL Referring Unavailable SIEGAL, ISREAL Attending Unavailable BROWN, FERNIE M Primary Care Unavailable SIEGAL, ISREAL Referring Unavailable SIEGAL, ISREAL Attending Unavailable BROWN, FERNIE M Primary Care Unavailable STEPHENS, GARRY S Attending Unavailable BROWN, FERNIE M Primary Care Unavailable STEPHENS, GARRY S Referring Unavailable SIEGAL, ISREAL Attending Unavailable SIEGAL, ISREAL Admitting Unavailable BROWN, FERNIE M Primary Care Unavailable Lucinda Hernándezd M Unavailable Naty Bhakta MD Unavailable [phone] Reggie DO Fernie M Primary Care Provider [phone] Aftab Hernández Unavailable Unavailabl e Reggie DAVALOS, Fernie Slaughter Primary Care Provider Fernie Paredes DO Primary Care Provider SILVIA MCNEILL Attending Unavailable GONSALO BLACKWOOD Referring Unavailable BROWN, FERNIEALEKSANDAR WORRELLCAI Primary Care Unavailab GONSALO Norman Referring Unavailable BROWN, FERNIE ANAIDCAPrema Primary Care Unavailab SILVIA Martin Attending Unavailable GONSALO BLACKWOOD Referring Unavailable BROWN, FERNIE ANAIDCAI Primary Care Unavailab SILVIA Martin Attending Unavailable GONSALO BLACKWOOD Referring Unavailable BROWN, FERNIEALEKSANDAR WORRELLCAPrema Primary Care Unavailab SILVIA Martin Attending Unavailable GONSALO BLACKWOOD Referring Unavailable BROWN, FERNIEALEKSANDAR WORRELLCAI Primary Care Unavailab SILVIA Martin Attending Unavailable GONSALO BLACKWOOD Referring Unavailable BROWN, FERNIEALEKSANDAR WORRELLCAI Primary Care Unavailab SILVIA Martin Attending Unavailable GONSALO BLACKWOOD Referring Unavailable BROWN, FERNIEALEKSANDAR ISSADECAI Primary Care Unavailab SILVIA Martin Attending Unavailable GONSALO BLACKWOOD Referring Unavailable BROWN, FERNIEALEKSANDAR ISSADECAI Primary Care Unavailab le BROWN, FERNIEALEKSANDAR ISSADECAI Primary Care Unavailab LIANG Valdez Attending Unavailable ARTUROGALISREAL Referring Unavailable BROWN, FERNIE MAEGANDECAI Primary Care Unavailab le SIEGALISREAL Referring Unavailable BROWN, FERNIEALEKSANDAR ISSADECAI Primary Care Unavailab SILVIA Martin Attending Unavailable SIEGALISREAL Referring Unavailable BROWN, FERNIE MORDECAI Primary Care Unavailab le SIEGALISREAL Referring Unavailable BROWN, FERNIE MORDECAI Primary Care Unavailab le SIEGALISREAL Referring Unavailable BROWN, FERNIEALEKSANDAR ISSADECAI Primary Care Unavailab le SIEGALISREAL D Referring Unavailable BROWN, FERNIE MORDECAI Primary Care Unavailab le SIEGALISREAL Referring Unavailable BROWN, FERNIE MORDECAI Primary Care Unavailab le SIEGAL ISREAL D Referring Unavailable BROWN, FERNIE MORDECAI Primary Care Unavailab le BROWN, FERNIE MORDECAI Primary Care Unavailab le GONSALO BLACKWOOD Referring Unavailable GONSALO BLACKWOOD Referring Unavailable BROWN, FERNIE MORDECAI Primary Care Unavailab le FOSTER, GONSALO REY Referring Unavailable BROWN, FERNIE SLAUGHTER Primary Care Unavailab le FOSTER, GONSALO REY Referring Unavailable BROWN, FERNIE WORRELLCAI Primary Care Unavailab le FOSTER, GONSALO REY Referring Unavailable BROWN, FERNIE ISSADECAI Primary Care Unavailab le FOSTER, GONSALO REY Referring Unavailable BROWN, FERNIE WORRELLCAPrema Primary Care Unavailab le FOSTER, GONSALO REY Referring Unavailable BROWN, FERNIE MORJENNYCAPrema Primary Care Unavailab le Akua Warren OD Unavailable CIRO LYLES Attending Unavailable LYLESKUSHALCIRO K Referring Unavailable REGGIE, FERNIE M Primary Care Unavailable LYLESCIRO Attending Unavailable JASWINDER GARZA Referring Unavailable REGGIE, FERNIE M Primary Care Unavailable LYLESCIRO Attending Unavailable LYLES, CIRO K Referring Unavailable REGGIE, FERNIE M Primary Care Unavailable Livia OJEDA, Naty Frost Unavailable Fernie Paredes DO Primary Care Provider [phone] Aftab Hernández Unavailable Naty Bhakta MD Unavailable FERNIE PAREDES M Primary Care Unavailable ISREAL SIGALA Referring Unavailable ISREAL SIGALA Attending Unavailable SHANNAN KATE Referring Unavailable KESHAWN NUNEZ Attending Unavailable REGGIE, FERNIE M Primary Care Unavailable BROWN, FERNIE M Primary Care Unavailable KATINA WILLIAM Referring Unavailable DEEPALI JOE Attending Unavailable REGGIE, FERNIE M Primary Care Unavailable MONSE SHIPLEY Referring Unavailable MONSE SHIPLEY F Attending Unavailable BROWN, FERNIE M Primary Care Unavailable MONSE SHIPLEY F Attending Unavailable DAWN URIARTE Referring Unavailable BROWN, FERNIE M Referring Unavailable BROWN, FERNIE M Primary Care Unavailable BROWN, FERNIE M Attending Unavailable BROWN, FERNIE M Primary Care Unavailable SELF, SELF Referring Unavailable GONSALO BLACKWOOD Attending Unavailable BROWN, FERNIE M Primary Care Unavailable GONSALO BLACKWOOD Attending Unavailable ELVIN GONSALO Referring Unavailable BROWN, FERNIE M Primary Care Unavailable KATINA STRONG Referring Unavailable DELILAH CALDERON Attending Unavailable BROWN, FERNIE M Primary Care Unavailable FERNANDO DAVISON Attending Unavailable SELF, SELF Referring Unavailable BROWN, FERNIE M Primary Care Unavailable BROCWELL, SHI M Attending Unavailable BROCorwinWELL, SHI M Referring Unavailable BROWN, FERNIE M Primary Care Unavailable GONSALO BLACKWOOD Admitting Unavailable GONSALO BLACKWOOD Attending Unavailable BROWN, FERNIE M Primary Care Unavailable ISREAL SIGALA Attending Unavailable ISREAL SIGALA Referring Unavailable BROWN, FERNIE M Referring Unavailable BROWN, FERNIE M Primary Care Unavailable EMJAVIER HAIRSTON., DELILAH Crawley Attending Unavailanders e BROWN, FERNIE M Primary Care Unavailable SELF, SELF Referring Unavailable DAWN URIARTE Attending Unavailable BROWN, FERNIE M Primary Care Unavailable KATINA WILLIAM Attending Unavailable KATINA WILLIAM Referring Unavailable BROWN, FERNIE M Primary Care Unavailable ISREAL SIGALA Referring Unavailable NATALIIA, KATINA Kidd Attending Unavailable BROWN, FERNIE M Attending Unavailable BROWN, FERNIE M Referring Unavailable BROWN, FERNIE M Primary Care Unavailable BROWN, FERNIE M Primary Care Unavailable DAWN URIARTE Attending Unavailable DAWN URIARTE Referring Unavailable BROWN, FERNIE M Attending Unavailable BROWN, FERNIE M Referring Unavailable BROWN, FERNIE M Primary Care Unavailable BROWN, FERNIE M Attending Unavailable BROWN, FERNIE M Referring Unavailable BROWN, FERNIE M Primary Care Unavailable BROWN, FERNIE M Primary Care Unavailable DAWN URIARTE Referring Unavailable DAWN URIARTE Attending Unavailable BROWN, FERNIE M Primary Care Unavailable KATINA WILLIAM Attending Unavailable KATINA WILLIAM Referring Unavailable BROWN, FERNIE M Primary Care Unavailable BROCorwinWELL, SHI M Attending Unavailable BROCWELL, SHI M Referring Unavailable BROWN, FERNIE M Primary Care Unavailable EMJAVIER HAIRSTON.DELILAH Attending Unavailanders e SELF, SELF Referring Unavailable BROWN, FERNIE M Primary Care Unavailable BROCorwinWELL, SHI M Attending Unavailable SELF, SELF Referring Unavailable BROWN, FERNIE M Attending Unavailable BROWN, FERNIE M Primary Care Unavailable BROWN, FERNIE M Referring Unavailable BROWN, FERNIE M Primary Care Unavailable RHONDA HAIRSTON.DELILAH Referring Unavailabl e RHONDA HAIRSTON.DELILAH Attending Unavailabl e BROWN, FERNIE M Primary Care Unavailable DAWN URIARTE Attending Unavailable DAWN URIARTE Referring Unavailable BROWN, FERNIE M Referring Unavailable BROWN, FERNIE M Primary Care Unavailable DEEPALI JOE Attending Unavailable BROWN, FERNIE M Referring Unavailable BROWN, FERNIE M Primary Care Unavailable KATINA WILLIAM Attending Unavailable BROWN, FERNIE M Primary Care Unavailable SELF, SELF Referring Unavailable DAWN URIARTE Attending Unavailable BROWN, FERNIE M Referring Unavailable BROWN, FERNIE M Primary Care Unavailable BROWN, FERNIE M Attending Unavailable BROWN, FERNIE M Primary Care Unavailable EMLICH JR., DELILAH Crawley Referring Unavailabl e EMLICH JR., DELILAH Crawley Attending Unavailabl e BROWN, FERNIE M Primary Care Unavailable EMLICH JR., DELILAH Crawley Referring Unavailabl e EMLICH JR., DELILAH Crawley Attending Unavailabl e BROWN, FERNIE M Primary Care Unavailable SHI SON Attending Unavailable EMILY SONA M Referring Unavailable BROWN, FERNIE M Referring Unavailable BROWN, FERNIE M Primary Care Unavailable NINA KANG Attending Unavailable BROWN, FERNIE M Attending Unavailable BROWN, FERNIE M Primary Care Unavailable BROWN, FERNIE M Referring Unavailable BROWN, FERNIE M Attending Unavailable BROWN, FERNIE M Primary Care Unavailable BROWN, FERNIE M Referring Unavailable BROWN, FERNIE M Primary Care Unavailable EMLICH JR., DELILAH Crawley Attending Unavailabl e EMLICH JR., DELILAH Crawley Referring Unavailabl e BROWN, FERNIE M Primary Care Unavailable EMLICH JR., DELILAH Crawley Attending Unavailabl e BROWN, FERINE M Referring Unavailable BROWN, FERNIE M Attending Unavailable BROWN, FERNIE M Primary Care Unavailable BROWN, FERNIE M Referring Unavailable BROWN, FERNIE M Attending Unavailable BROWN, FERNIE M Primary Care Unavailable BROWN, FERNIE M Referring Unavailable BROWN, FERNIE M Attending Unavailable BROWN, FERNIE M Primary Care Unavailable BROWN, FERNIE M Referring Unavailable BROWN, FERNIE M Primary Care Unavailable GONSALO BLACKWOOD Attending Unavailable GONSALO BLACKWOOD Referring Unavailable BROWN, FERNIE M Primary Care Unavailable KATINA WILLIAM Referring Unavailable KATINA WILLIAM Attending Unavailable Allergies Allergy Classification Reported Allergen(s) Allergy Type Date of Onset Reaction(s) Facility (3 sources) Lisinopril Drug Allergy 0 Cough [facility] Work Phone: (20 sources) NSAIDs Propensity to adverse reactions to drug 2 [facility] (20 sources) Seasonal allergy; Translations: [SEASONAL ALLERGIES] Allergy to substance 4 Other: See Comments [facility] Work Phone: (6 sources) Non-steroidal anti-inflammato ry agent; Translations: [NSAIDS (NON-STEROIDAL ANTI-INFLAMMATO RY DRUG)] Propensity to adverse reactions to drug 4 Other (See Comments) [facility] (1 source) ALLERGIES NOT ON FILE; Translations: [ALLERGIES NOT ON FILE] Propensity to adverse reactions (disorder) Hospitals 2 Repository Medications Current Medications Medication Drug Class(es) Dates Sig (Normalized) Sig (Original) acebutolol 200 mg oral capsule (20 sources) beta-Adrenergic Benedicto Start: 04-08-2015 take 200 mg by mouth once daily Acebutolol Active 200 MG PO DAILY April 07, 2015 11:00pm Start: 04-29-2014 take 1 capsule by [facility] twice daily acebutolol (SECTRAL) 200 mg capsule Indications: PVC's (premature ventricular contractions) Take 1 capsule by mouth twice daily. 180 capsule 3 02/04/2017 Suspended Comment on above: Dr Farias Take 1 capsule by [facility] twice daily. 1 ml alirocumab 75 mg/ml auto-injector (20 sources) PCSK9 Inhibitor Start: 01-13-2021 Praluent Pen 75 mg/mL injection Inject 1 mL (75 mg total) under the skin every 21 days . 01/13/2021 Active End: 09-29-2022 Alirocumab 75 MG/ML Solution Auto-injector Inject 75 mg under the skin every [address] Calderon 0 09/29/2022 Discontinued (Other (suppress cancel msg)) allopurinol 100 mg oral tablet (20 sources) Xanthine Oxidase Inhibitor Start: 03-17-2023 End: 11-13-2024 take 1 tablet by mouth once daily Allopurinol 100 MG tablet Take 1 tablet by mouth daily. 90 tablet 3 11/02/2024 Active amoxicillin 875 mg / clavulanate 125 mg oral tablet (11 sources) Penicillin-class Antibacterial Start: 07-13-2023 End: 07-28-2023 take 1 tablet by mouth every twelve hours Amoxicillin-clavu lanate 875-125 MG tablet Take 1 tablet by mouth every 12 hours for 10 days. 20 tablet 0 07/18/2023 07/28/2023 Active Start: 09-26-2022 End: 10-03-2022 amoxicillin-clavulanate 875- 125 MG tablet Take 1 tablet by mouth. 0 09/26/2022 10/03/2022 Start: 09-26-2022 End: 10-03-2022 take 1 tablet by mouth once amoxicillin-clavulanic acid (AUGMENTIN) 875-125 mg per tablet Take 1 tablet by mouth. 0 09/26/2022 10/03/2022 Active Comment on above: Take 1 tablet by robert . baclofen 10 mg oral tablet (3 sources) gamma-Aminobutyric Acid-ergic Agonist Start: 07-09-2025 End: 08-09-2025 baclofen 10 MG tablet Indications: Myofascial pain Take 1/2 tablet to 1 tablet by mouth 3x daily as needed for muscle spasms/pain 90 tablet 2 08/09/2025 Active benoxinate hydrochloride 4 mg/ml / fluorescein sodium 3 mg/ml ophthalmic solution (3 sources) Diagnostic Dye Start: 04-02-2024 End: 04-02-2024 fluorescein-benoxinate 0.3-0.4 % 1 Drop (FLURESS) Start: 08-08-2023 End: 08-09-2023 fluorescein-benoxinate 0.3-0 .4 % drop 1 Drop benzoyl peroxide 0.0375 mg/mg / clindamycin phosphate 0.012 mg/mg topical gel (20 sources) Lincosamide Antibacterial Clindamycin Phos-Benzoyl Perox 1.2-3.75 % Gel Apply 1 Application topically daily as needed. Given by Dermatology Dr. Dejesus Active 24 hr buPROPion hydrochloride 300 mg extended release oral tablet (20 sources) Aminoketone Start: 11-13-19 End: 11-13-19 take 300 mg by mouth once daily before breakfast 300 mg, Oral, DAILY BEFORE BREAKFAST, First dose on Tue11/13/24 at 0600, Until Discontinued, Do not crush, chew, or divide. Start: 01-12-2021 End: 06-20-2025 take 1 tablet by mouth once daily before breakfast buPROPion (Wellbutrin XL) 300 MG tablet XL Take 1 tablet by mouth every morning before breakfast. Cancel previous refills 90 tablet 06/20/2025 Active Start: 01-12-2021 take 1 tablet by robert every twenty-four hours buPROPion XL (WELLBUTRIN XL) 300 mg 24 hr tablet Take 300 mg by mouth. 01/12/2021 Active Comment on above: Take 300 mg by mouth . carvedilol 12.5 mg oral tablet (20 sources) alpha-Adrenergic Benedicto, beta-Adrenergic Benedicto Start: 11-12-2024 End: 11-13-2024 take 12.5 mg by mouth twice daily at mealtime 12.5 mg, Oral, 2 TIMES DAILY WITH MEALS, First dose on Tue11/12/24 at 1715, Until Discontinued Start: 11-22-2022 take 2 tablets by mo uth twice daily at mealtime carveDILOL (Coreg) 12.5 MG tablet Indications: Essential hypertension Take 2 tablets by mouth 2 times daily with meals. Given by Dr. Calderon 0 11/22/2022 Active Start: 11-17-2022 End: 12-17-2022 take 1 tablet by mouth twice daily at mealtime carvedilol (COREG) 25 mg tablet Indications: PAF (paroxysmal atrial fibrillation) (HCC) , PVC (premature ventricular contraction) , Essential hypertension Take 1 tablet by mouth twice daily with meals. 180 tablet 3 11/17/2022 Active Start: 11-18-2020 End: 06-20-2025 take 1 tablet by mouth twice daily at mealtime carveDILOL (Coreg) 12.5 MG tablet Indications: Essential hypertension Take 1 tablet by mouth 2 times daily with meals. Cancel previous refills 180 tablet 06/20/2025 Active Comment on above: Take 12.5 mg by mout h. Take 1 tablet by robert twice daily with meals. cefixime 400 mg oral capsule (1 source) Cephalosporin Antibacterial Start: 05-06-20 End: 05-13-20 take 1 capsule by mouth once daily Cefixime 400 MG capsule Take 1 capsule by mouth daily for 7 days. 7 capsule 0 05/06/2023 05/13/2023 Active cetirizine hydrochloride 10 mg oral tablet (20 sources) Histamine-1 Receptor Antagonist Start: 03-23-20 End: 07-10-20 take 1 tablet by mouth once daily Cetirizine 10 MG tablet Take 1 tablet by mouth daily. OTC 07/10/2024 Active cetirizine (ZYRT EC) 10 MG chewable tablet Chew and Swallow 1 (one) tablet (10 mg total) daily . Active clopidogrel 75 mg oral tablet (20 sources) P2Y12 Platelet Inhibitor Start: 11-18-2023 clopidogreL (PLAVIX) 75 mg tablet Take 300 mg (4 tablets) the evening prior to procedure, then take 75 mg (1 tablet) once daily starting the morning of your procedure. . 94 tablet 1 11/18/2023 Active Start: 11-02-2022 End: 07-10-2024 take 1 tablet by mouth once daily clopidogrel (PLAVIX) 75 mg tablet Take 1 tablet by mouth once daily for 21 doses. 21 tablet 11/02/2022 Active Comment on above: Take 1 tablet by robert th once daily for 21 doses. CUSTOM MEDICATION (15 sources) Start: CUSTOM MEDICATION The patient requires a Handicap placard for 5 years, as she is unable to walk more than 200 feet without stopping to rest, due to her medical conditions. 1 Each 03/26/2025 Active diazePAM 5 mg oral tablet (15 sources) Benzodiazepine Start: End: take 1 tablet by mouth three times daily Diazepam 5 MG tablet Indications: Esophageal spasm Take 1 tablet by mouth 3 times daily. Trial of med 90 tablet 1 06/18/2025 Active Start: 2025 End: 03-07-2025 take 1 tablet by mouth three times daily Diazepam 5 MG tablet Indications: Esophageal spasm Take 1 tablet by mouth 3 times daily. Trial of med 90 tablet 1 02/05/2025 Active take 1 tablet by robert th every six hours as needed diazePAM (Valium) 5 mg tablet Take 1 tablet (5 mg) by mouth every 6 hours if needed. Active escitalopram 10 mg oral tablet (20 sources) Serotonin Reuptake Inhibitor Start: 04-17-2024 End: 06-20-2025 take 1 tablet by mouth once daily Escitalopram (Lexapro) 10 MG tablet Take 1 tablet by mouth daily. Cancel previous refills 90 tablet 06/20/2025 Active Start: 01-12-2021 End: 11-22-2022 escitalopram oxalate (LEXAPR O) 20 mg tablet Take 20 mg by mouth. 01/12/2021 Active Start: 11-30-2006 End: 12-26-2007 take 1 tablet by mouth once daily LEXAPRO, 10MG (Oral Tablet) Tablet QD for 0 days Refills: 0 Ordered: 26-Dec-2007 Roxann Yan MD Start : 30-Nov-2006 End : 26-Dec-2007 Discontinued take 2 tablets by mo ut once daily Escitalopram 10 MG tablet Take 2 tablets by mouth daily. 0 Active Comment on above: Take 1 tablet by robert th once daily. 1 ml evolocumab 140 mg/ml auto-injector (20 sources) PCSK9 Inhibitor Start: 08-30-2022 Evolocumab (Repatha SureClic k) 140 MG/ML Solution Auto-injector injection Indications: Hypertriglyceridemia , Hyperlipidemia LDL goal Inject 1 mL under the skin every 14 days. SATURDAYS 6 mL 3 08/21/2024 Active Start: 06-02-2022 End: 08-09-2022 Repatha SureClick 140 MG/ML Solution Auto-injector injection Start: 12-30-2021 End: 05-26-2022 Evolocumab 140 MG/ML Solutio n Auto-injector injection Indications: Hyperlipidemia LDL goal Inject 1 mL under the skin every 14 days. Generic for Repatha and given by Dr. Calderon 1 mL 11 12/30/2021 05/26/2022 Discontinued Comment on above: Inject 1 mL under th e skin every 14 days. fenofibrate 160 mg oral tablet (20 sources) Peroxisome Proliferator Receptor alpha Agonist Start: 024 End: 025 take 1 tablet by mouth once daily fenofibrate 160 MG tablet Indications: Hypertriglyceridemia Take 1 tablet by mouth daily. Cancel previous refills 90 tablet 06/20/2025 Active Start: 08-31-2023 take 1 tablet by robert th once daily fenofibrate 160 MG tablet Indications: Hypertriglyceridemia Take 1 tablet by mouth daily. 90 tablet 3 08/31/2023 Active Start: 02-21-2023 take 1 tablet by robert th once daily fenofibrate 160 MG tablet Take 1 tablet by mouth daily. 90 tablet 3 02/21/2023 Active Start: 02-14-2023 take 1 tablet by robert th once daily fenofibrate 160 MG tablet Take 1 tablet by mouth daily. 90 tablet 0 02/14/2023 Active Start: 05-03-2022 End: 11-22-2022 take 1 tablet by mouth once daily fenofibrate 160 MG tablet Indications: Hypertriglyceridemia Take 1 tablet by mouth daily. 90 tablet 3 09/01/2022 11/22/2022 Discontinued Start: 12-30-2021 End: 03-23-2022 take 1 tablet by mouth once daily fenofibrate 160 MG tablet Take 1 tablet by mouth daily. 90 tablet 0 03/23/2022 Active Start: 11-16-2016 End: 11-17-2022 take 1 tablet by mouth once daily fenofibrate nanocrystallized (TRICOR) 145 mg tablet Take 1 tablet by mouth once daily. 90 tablet 3 11/16/2016 11/17/2022 Discontinued (Course of therapy completed) Comment on above: Take 1 tablet by robert th once daily. fluticasone propionate 0.05 mg/actuat metered dose nasal spray (20 sources) Corticosteroid fluticasone (Flonase Allergy Relief) 50 MCG/ACT Suspension nasal spray 2 sprays by Nasal route daily as needed. OTC Active folic acid 1 mg oral tablet (20 sources) Start: End: take 1 tablet by mouth once daily Folic acid 1 MG tablet Take 1 tablet by mouth daily. Cancel previous refills 90 tablet 06/20/2025 Active Start: 05-13-2023 take 1 tablet by robert th once daily Folic acid 1 MG tablet Take 1 tablet by mouth daily. 90 tablet 0 05/13/2023 Active Start: 12-30-2021 End: 02-14-2023 take 1 tablet by mouth once daily folic acid 1 MG tablet Take 1 tablet by mouth daily. 90 tablet 0 05/26/2022 08/20/2022 Discontinued (Reorder) 12 hr guaiFENesin 600 mg extended release oral tablet (1 source) Start: 09-26-2022 End: 10-03-2022 guaiFENesin (MUCINEX) 600 mg 12 hr tablet Take 1,200 mg by mouth. 0 09/26/2022 10/03/2022 Active Comment on above: Take 1,200 mg by robert th. hydroCHLOROthiazide 25 mg / triamterene 37.5 mg oral capsule (20 sources) Potassium-spar ing Diuretic, Thiazide Diuretic Start: 11-13-2024 End: 11-13-2024 take 0.5 tablet by mouth once daily 0.5 tablet, Oral, DAILY, First dose on Tue11/13/24 at 0900, Until Discontinued Start: 12-19-2020 End: 06-20-2025 take 1 capsule by mouth once daily triamterene-hydrochlorothiazide (Dyazide ) 37.5-25 MG per capsule Indications: Essential hypertension Take 1 capsule by mouth daily. Cancel previous refills 90 capsule 06/20/2025 Active Start: 04-08-2015 End: 11-17-2022 take 1 tablet by mouth once daily triamterene-hydroCHLOROthiazide (MAXZIDE -25) 37.5-25 mg per tablet Take 1 tablet by mouth once daily. 90 tablet 3 11/17/2022 Active Comment on above: Mail order. Take 1 tablet by robert th once daily. levoFLOXacin 500 mg oral tablet (1 source) Quinolone Antimicrobial Start: 03-23-20 End: 03-30-20 take 1 tablet by mouth once daily before breakfast levoFLOXacin (Levaquin) 500 MG tablet Take 1 tablet by mouth every morning before breakfast for 7 days. 7 tablet 0 03/23/2022 03/30/2022 Active lifitegrast 50 mg/ml ophthalmic solution (5 sources) Lymphocyte Function-Associated Antigen-1 Antagonist Start: 11-09-19 take 2 drop(s) into the eye(s) once daily Xiidra 5 % Solution ophthalmic solution Place 2 drops in both eyes daily. Given by Dr. Warren at [facility] 0 11/09/2021 Active linezolid 600 mg oral tablet (12 sources) Oxazolidinone Antibacterial Start: 07-22-20 23 End: 08-05-20 23 take 1 tablet by mouth twice daily Linezolid (Zyvox) 600 MG tablet Indications: Cellulitis of other specified site , Open wound of fourth toe of left foot, sequela Take 1 tablet by mouth 2 times daily for 14 days. 28 tablet 0 07/22/2023 08/05/2023 Active lisinopril 5 mg oral tablet (20 sources) Angiotensin Converting Enzyme Inhibitor Start: 10-26-19 24 End: 06-20-20 25 take 1 tablet by mouth once daily Lisinopril 5 MG tablet Indications: Essential hypertension Take 1 tablet by mouth daily. Cancel previous refills 90 tablet 06/20/2025 Active Start: 08-31-2023 take 1 tablet by robert th once daily Lisinopril 5 MG tablet Indications: Essential hypertension Take 1 tablet by mouth daily. 90 tablet 3 08/31/2023 Active Start: 08-08-2023 take 1 tablet by robert th once daily Lisinopril 5 MG tablet Take 1 tablet by mouth daily. Cancel previous refills 90 tablet 0 08/08/2023 Active Start: 05-13-2023 take 1 tablet by robert th once daily Lisinopril 5 MG tablet Take 1 tablet by mouth daily. Cancel previous refills 90 tablet 0 05/13/2023 Active Start: 11-13-2022 End: 12-17-2022 take 1 tablet by mouth once daily lisinopril (ZESTRIL, PRINIVIL) 10 mg tablet Indications: Essential hypertension Take 1 tablet by mouth once daily. 90 tablet 3 11/17/2022 Active Start: 11-03-2022 End: 02-14-2023 take 1 tablet by mouth once daily Lisinopril 5 MG tablet Take 1 tablet by mouth daily. Cancel previous refills 90 tablet 0 02/14/2023 Active Start: 05-25-2010 End: 10-19-2011 take 2 tablets by mouth once daily ZESTRIL, 20MG (Oral Tablet) 2 (two) Tablet QD for 0 days Quantity: 180 {Tablet} Refills: 3 Ordered: 19-Oct-2011 EVA Charlton Start : 25-May-2010 End : 19-Oct-2011 Inactive Comment on above: Take 1 tablet by robert th once daily. LORazepam (2 sources) Benzodiazepine Start: 04-05-2025 LORazepam (Ativan) tablet 0.5 mg Start: 04-05-2025 End: 04-05-2025 take 1 mg by mouth once 1 mg, oral, Once, On 03/24 at 0435, For 1 dose magnesium oxide 400 mg oral tablet (20 sources) Start: 06-15-2025 take 2 tablets by mouth twice daily at mealtime magnesium oxide 400 (240 Mg) MG Take 2 tablets by mouth 2 times daily with meals. 06/15/2025 Active Start: 07-09-2024 take 1 tablet by robert th twice daily at mealtime magnesium oxide 400 (240 Mg) MG Take 1 tablet by mouth 2 times daily with meals. 07/09/2024 Active Start: 10-31-2023 End: 04-17-2024 take 1 tablet by mouth once magnesium oxide (MAG-OX) 4 00 mg (241.3 mg magnesium) tablet Take 1 tablet by mouth every afternoon. 02/02/2024 Active Start: 04-08-2015 take 400 mg by mouth once shannan y Magnesium Oxide Active 400 MG PO DAILY April 07, 2015 11:00pm Start: 02-23-2013 End: 02-04-2017 take 1 capsule by mouth once daily Magnesium Oxide 400 MG Oral Capsule 1 Capsule qd for 0 days Quantity: 30 {Capsule} Refills: 0 Ordered: 04-Feb-2017 Tracy Joy LPN Start : 23-Feb-2013 End : 04-Feb-2017 Discontinued Comments: Dr Farias Comment on above: Dr Farias Take 1 tablet by robert once daily. Mometasone (20 sources) Corticosteroid Start: 02-04-2016 Mometasone (Asmanex 220 Mcg Twisthaler) 220 MCG inhaler Active 220 MCG INHALATION TWICE A DAY February 03, 2016 11:00pm Start: 02-04-2016 Mometasone (As manex 220 Mcg Twisthaler) 220 MCG inhaler Active 220 MCG INHALATION TWICE A DAY February 04, 2016 12:00am mupirocin 0.02 mg/mg topical ointment (20 sources) RNA Synthetase Inhibitor Antibacterial Start: 05-02-2023 apply 30 g topically three times daily Mupirocin 2 % ointment Apply topical TID for 7 days 30 g 0 05/02/2023 Active naloxone hydrochloride 40 mg/ml nasal spray (6 sources) Opioid Antagonist Start: 11-12-2024 End: 11-12-2024 naloxone 4 MG/0.1ML 1 spray by Nasal route once for 1 dose. [place] into the nose as directed. Call 911. If no response in 2 minutes use a new nasal spray in other nostril. Repeat until help arrives. 1 Each 11/12/2024 12/31/2024 Discontinued omega-3 acid ethyl esters (fpc) 1000 mg oral capsule (20 sources) Start: 12-31-2024 End: 06-20-2025 take 2 capsules by mouth twice daily omega-3 acid ethyl esters 1 g capsule Take 2 capsules by mouth 2 times daily. Cancel previous refills 360 capsule 06/20/2025 Active pantoprazole 40 mg delayed release oral tablet (20 sources) Proton Pump Inhibitor Start: 08-20-[address] (PROTONIX) 40 mg tablet Take 40 mg by mouth. 08/20/2022 Active Start: 12-30-2021 End: 06-20-2025 take 1 tablet by mouth twice daily before mealtime Pantoprazole (Protonix) [address] tablet DR Take 1 tablet by mouth 2 times daily (take before meals). Cancel previous refills 180 tablet 06/20/2025 Active Comment on above: Take 40 mg by mouth. polyethylene glycol 3350 69254 mg powder for oral solution (1 source) Osmotic Laxative Start: 06-19-2022 End: 06-17-2022 polyethylene glycol (MIRALAX) packet 17 g Start: 06-19-2022 End: 06-17-2022 polyethylene glycol (MIRALAX ) packet 17 g pravastatin sodium 40 mg oral tablet (20 sources) HMG-CoA Reductase Inhibitor Start: 11-10-2015 End: 02-04-2017 take 40 mg by mouth once daily Pravastatin Active 40 MG PO DAILY November 10, 2015 12:00am predniSONE 20 mg oral tablet (2 sources) Start: 02-13-2021 End: 02-18-2021 take 2 tablets by mouth once daily predniSONE (DELTASONE) 20 MG tablet Take 2 (two) tablets (40 mg total) by mouth daily for 5 days . 10 tablet 0 02/13/2021 02/18/2021 Active Start: 02-14-2015 End: 07-23-2015 PREDNISONE (JOSÉ), 10MG (Oral Tablet) 1 (one) Tablet uad for 0 days Quantity: 1 {Package} Refills: 0 Ordered: 23-Jul-2015 Tracy Joy LPN Start : 14-Feb-2015 End : 23-Jul-2015 Discontinued traZODone hydrochloride 100 mg oral tablet (20 sources) Serotonin Reuptake Inhibitor Start: 11-12-2024 End: 11-13-2024 take 100 mg by mouth once daily at bedtime 100 mg, Oral, DAILY AT BEDTIME, First dose on Tue11/12/24 at 2100, Until Discontinued Start: 01-13-2018 End: 06-20-2025 take 1 tablet by mouth at bedtime traZODone 100 MG tablet Take 1 tablet by mouth at bedtime. Cancel previous refills 90 tablet 06/20/2025 Active Comment on above: Mail order. Take 100 mg by mouth . vitamin b12 1 mg oral tablet (20 sources) Vitamin B12 Start: 08-08-2023 End: 06-20-2025 cyanocobalamin 1000 MCG tablet Chew 1 tab q daily. Cancel previous refills 90 tablet 06/20/2025 Active Start: 05-13-2023 take 1 tablet by robert th once daily, then take 1 tablet by mouth once daily cyanocobalamin 1000 MCG tablet Take 1 tablet by mouth daily. Chew 1 tab q daily 90 tablet 0 05/13/2023 Active Start: 12-30-2021 End: 02-14-2023 take 1 tablet by mouth once daily, then take 1 tablet by mouth once daily cyanocobalamin 1000 MCG tablet Take 1 tablet by mouth daily. Chew 1 tab q daily 90 tablet 0 05/26/2022 08/20/2022 Discontinued (Reorder) Completed/Discontinued Medications Medication Drug Class(es) Dates Sig (Normalized) Sig (Original) acetaminophen 325 mg oral tablet (11 sources) Start: 04-05-2025 End: 04-05-2025 take 975 mg by mouth once as needed for pain 975 mg, oral, Once, On Tue04/05/25 at 0105, For 1 dose, If ordered PRN for pain, nurse is permitted to administer this medication for higher pain scores based on patient preference? Yes Start: 11-12-2024 End: 11-13-2024 take 1 tablet by mouth every six hours 1,000 mg, Oral, EVERY 6 HOURS NON-STANDARD, First dose on Tue11/12/24 at 1615, Until Discontinued, Post-op/Post-Proc Start: 11-12-2024 End: 12-31-2024 take 2 tablets by mouth every six hours as needed Acetaminophen 325 MG tablet Take 2 tablets by mouth every 6 hours as needed for Mild Pain. 50 tablet 1 11/12/2024 12/31/2024 Discontinued Start: 11-12-2024 take 1 dose by mouth every hour 1,000 mg, Oral, ONCE DIRECTED, 1 dose, Starting on Tue11/12/24 at 0939, Until Tue11/12/24 at 1021, See admin instructions, Administer 1 hour preop., Pre-op/Pre-Proc acetaminophen 325 mg / HYDROcodone bitartrate 5 mg oral tablet (20 sources) Opioid Agonist Start: 12-05-2024 End: 03-10-2025 take 1 tablet by mouth once daily as needed hydroCODone-acetaminophen 5-325 MG tablet Indications: Acute postoperative pain of left knee Take 1-2 tablets by mouth every 8 hours as needed for Severe Pain for up to 7 days. Do not take over 4000mg acetaminophen daily. 20 tablet 12/05/2024 12/31/2024 Discontinued Start: 05-03-2024 End: 05-03-2024 take 1-2 tablets by mouth every four hours as needed 1-2 tablet, Oral, EVERY 4 HOURS NEEDED, Starting on Lina 05/03/24 at 1411, Until Lina 05/03/24 at 1926, Other, See Admin Instructions, 1 tablet for pain scale 4 or 5 out of 10 2 tablets for pain scale 6 to 10 out 10, Post-op/Post-Proc Start: 05-03-2024 End: 07-10-2024 take 1 tablet by mouth four times daily as needed for pain hydroCODone-acetaminophen 5-325 MG tablet Indications: Sacroiliitis Take 1 tablet by mouth 4 times daily as needed for Moderate Pain for up to 5 days. 20 tablet 05/03/2024 07/10/2024 Discontinued Start: 07-06-2023 take 1 tablet by [facility] every four hours as needed for pain hydroCODone-acetaminophen 5-325 MG tablet Indications: Cellulitis and abscess of toe of left foot Take 1 tablet by mouth every 4 hours as needed for Moderate Pain for up to 3 days. 18 tablet 0 07/06/2023 Active Start: 06-17-2022 End: 08-20-2022 take 1 tablet by mouth every six hours as needed for pain hydroCODone-acetaminophen 5-325 MG tablet Indications: Elective surgery Take 1 tablet by mouth every 6 hours as needed for Moderate Pain for up to 7 days. 28 tablet 0 06/17/2022 08/20/2022 Discontinued Start: 06-17-2022 End: 06-17-2022 take 1-2 tablets by mouth every four hours as needed hydroCODone-acetaminophen (NORCO) 5-325 MG per tablet 1-2 tablet acetaminophen 325 mg / oxyCODONE hydrochloride 5 mg oral tablet (6 sources) Opioid Agonist Start: 06-18-2021 take 1 tablet by mouth every six hours as needed oxyCODONE-acetaminophen (PERCOCET) 5-325 mg tablet Indications: Arthritis of left acromioclavicular joint Take 1 tablet by mouth every 6 hours as needed. 20 tablet 0 06/18/2021 Suspended Comment on above: Take 1 tablet by robert th every 6 hours as needed. [id number] 200 actuat albuterol 0.09 mg/actuat metered dose inhaler (20 sources) beta2-Adrene rgic Agonist Start: 11-12-2024 End: 11-13-2024 Start: 02-14-2023 take 2 puff(s) by in halation every six hours as needed for wheezing Albuterol (Ventolin HFA) 108 (90 Base) MCG/ACT Aero Soln inhaler Inhale 2 puffs every 6 hours as needed for Wheezing. 18 g 02/14/2023 Active Start: 04-13-2019 End: 02-14-2023 take 2 puff(s) by inhalation every six hours as needed albuterol HFA (PROVENTIL HFA, VENTOLIN HFA) 90 mcg/actuation inhaler Inhale 2 Puffs as instructed every 6 hours as needed. 04/13/2019 Active Start: 02-14-2015 End: 07-23-2015 PROAIR HFA, 108 (90 Base)MCG /ACT (Inhalation Aerosol Solution) 1 (one) Aerosol Soln 1-2 puffs every 6 ours prn for 0 days Quantity: 1 {Each} Refills: 0 Ordered: 23-Jul-2015 Tracy Joy LPN Start : 14-Feb-2015 End : 23-Jul-2015 Discontinued Comment on above: Inhale 2 Puffs as in structed every 6 hours as needed. ALPRAZolam 0.5 mg oral tablet (1 source) Benzodiazepine XANAX, 0.5MG (Or al Tablet) 1 q 6-8 hours prn (0.5 MG) Inactive amoxicillin 500 mg oral capsule (9 sources) Penicillin-class Antibacterial Start: 12-05-2024 End: 12-05-2025 Amoxicillin 500 MG capsule Take 4 capsules 1 hour before procedure 8 capsule 1 12/05/2024 12/31/2024 Discontinued Start: 05-16-2020 take 4 capsules by m outh every hour amoxicillin (POLYMOX, AMOXIL) 500 mg capsule Please take 4 capsules by mouth 1 (one) hour prior to your dental appointment. 4 capsule 3 05/16/2020 Suspended Comment on above: Please take 4 capsul es by mouth 1 (one) hour prior to your dental appointment. apixaban 5 mg oral tablet (20 sources) Factor Xa Inhibitor Start: End: take 1 tablet by mouth every twelve hours apixaban 5 MG tablet Indications: Paroxysmal atrial fibrillation Take 1 tablet by mouth every 12 hours. 180 tablet 3 10/26/2023 01/23/2024 Discontinued Start: 08-31-2023 take 1 tablet by robert th every twelve hours apixaban 5 MG tablet Indications: Paroxysmal atrial fibrillation Take 1 tablet by mouth every 12 hours. 180 tablet 3 08/31/2023 Active Start: 06-20-2023 take 1 tablet by robert th twice daily Apixaban (Eliquis) 2.5 mg tablet Active 2.5 MG PO TWICE A DAY August 04, 2023 11:00pm Start: 06-20-2023 End: 06-29-2023 take 1 tablet by mouth every twelve hours apixaban 5 MG tablet Indications: Paroxysmal atrial fibrillation Take 1 tablet by mouth every 12 hours. 180 tablet 3 06/20/2023 06/29/2023 Discontinued Start: 02-21-2023 take 1 tablet by robert th every twelve hours apixaban 5 MG tablet Take 1 tablet by mouth every 12 hours. 180 tablet 3 02/21/2023 Active Start: 11-22-2022 End: 02-14-2023 take 1 tablet by mouth every twelve hours apixaban 5 MG tablet Take 1 tablet by mouth every 12 hours. 180 tablet 0 02/14/2023 Active Start: 11-12-2022 End: 12-17-2022 take 1 tablet by mouth twice daily apixaban (ELIQUIS) 5 mg tab(s) Indications: PAF (paroxysmal atrial fibrillation) ([facility]) Take 1 tablet by mouth twice daily. 180 tablet 3 11/17/2022 12/17/2022 Active Comment on above: Take 1 tablet by robert th twice daily. aspirin 81 mg delayed release oral tablet (20 sources) Platelet Aggregation Inhibitor, Nonsteroidal Anti-inflammatory Drug Start: 11-13-2024 End: 11-13-2024 take 81 mg by mouth every twelve hours in the morning 81 mg, Oral, EVERY 12 HOURS, First dose on Tue11/13/24 at 0900, Until Discontinued, Start in AM day after surgery, Post-op/Post-Pr oc Start: 11-12-2024 End: 12-31-[address] tablet Take 1 tab twice a day for 30 days. This medication is for blood clot prevention. 60 tablet 11/12/2024 12/31/2024 Discontinued End: 12-25-2024 take 1 tablet by mouth once daily at breakfast Aspirin (SB Low Dose ASA EC) [address] tablet Take 1 tablet by mouth daily with breakfast. OTC Active End: 05-26-2022 aspirin 81 MG Chew Tab chewa ble tablet Chew 81 mg daily. 0 05/26/2022 Discontinued Comment on above: Take 81 mg by mouth. atenolol 25 mg oral tablet (1 source) beta-Adrenergic Benedicto Start: 08-22-20 End: 08-22-20 take 1 tablet by mouth once daily ATENOLOL, 25MG (Oral Tablet) 1 (one) Tablet qd for 0 days Quantity: 30 {Tablet} Refills: 6 Ordered: 22-Aug-2008 Roxann Yan MD Start : 22-Aug-2008 End : 22-Aug-2008 Discontinued Barium Sulfate (VARIBAR PUDDING) 40 % pudding PSTE 15 mL (1 source) Start: 11-29-19 End: 11-29-19 take 1 dose by mouth once 15 mL, Oral, ONCE, 1 dose, On Tue11/29/24 at 1400, Use Varibar Pudding, Radiology Procedure Barium Sulfate (VARIBAR THIN LIQUID) 40 % 40 mL (1 source) Start: 11-29-19 End: 11-29-19 take 1 dose by mouth once 40 mL, Oral, ONCE, 1 dose, On Tue11/29/24 at 1400, Use Varibar Thin Liquid, Radiology Procedure bisacodyl 10 mg rectal suppository (2 sources) Stimulant Laxative Start: 11-12-19 End: 11-13-19 take 10 mg rectal route once daily as needed for constipation 10 mg, Rectal, DAILY NEEDED, Starting on 11/12/24 at 1410, Until Tue11/13/24 at 1503, constipation, Post-op/Post-Proc Start: 06-17-2022 End: 06-17-2022 bisacodyl (DULCOLAX) supposi tory 10 mg 120 actuat budesonide 0.18 mg/actuat dry powder inhaler (20 sources) Corticosteroid Start: 03-23-2022 End: 04-16-2022 Pulmicort Flexhaler 90 MCG/ACT inhaler Start: 12-30-2021 End: 04-27-2023 take 1 puff(s) by mouth twice daily budesonide (Pulmicort Flexhaler) 180 MCG/ACT inhaler Inhale 1 puff 2 times daily. Rinse mouth with water after each dose 3 Each 0 05/26/2022 08/20/2022 Discontinued (Reorder) bupivacaine hydrochloride 5 mg/ml injectable solution (7 sources) Amide Local Anesthetic Start: 01-10-2024 End: 01-10-2024 BUPivacaine (MARCAINE) 0.5 % injection 1 mL Start: 01-10-2024 End: 01-10-2024 1 mL, Intra-articular, ONCE NEEDED, 1 dose, Starting on Tue01/10/24 at 1230, Until Tue01/10/24 at 1230 Start: 09-26-2023 End: 09-26-2023 BUPivacaine (MARCAINE) 0.5 % injection 1 mL Start: 06-21-2023 End: 06-21-2023 BUPivacaine (PF) (MARCAINE) 0.5 % injection 1 mL Start: 12-16-2022 End: 12-16-2022 Bupivacaine (PF) (MARCAINE) 0.5 % injection 3 ml bupivacaine hydrochloride 5 mg/ml / EPINEPHrine 0.005 mg/ml injection (1 source) alpha-Adrenergic Agonist, beta-Adrenergic Agonist, Catecholamine, Amide Local Anesthetic Start: 06-17-2022 End: 06-17-2022 Bupivacaine-Epinephrine (MARCAINE;SENSORCAINE-MPF) 0.5% [id number] injection calcium chloride 0.0014 meq/ml / potassium chloride 0.004 meq/ml / sodium chloride 0.103 meq/ml / sodium lactate 0.028 meq/ml injectable solution (1 source) Start: 11-12-2024 End: 11-12-2024 Intravenous, at 75 mL/hr, CONTINUOUS, Starting on Tue11/12/24 at 0945, Until Tue11/12/24 at 1409, Pre-op/Pre-Proc candesartan cilexetil 32 mg oral tablet (1 source) Angiotensin 2 Receptor Benedicto Start: 11-30-2006 End: 12-26-2007 take 1 tablet by mouth once daily ATACAND, 32MG (Oral Tablet) 1 Tablet QD for 0 days Refills: 0 Ordered: 26-Dec-2007 Roxann Yan MD Start : 30-Nov-2006 End : 26-Dec-2007 Discontinued ceFAZolin 2000 mg injection (2 sources) Cephalosporin Antibacterial Start: 11-12-2024 End: 11-13-2024 take 2 g intravenously every eight hours 2 g, Intravenous, Administer over 30 Minutes, EVERY 8 HOURS NON-STANDARD, 3 doses, First dose on Tue11/12/24 at 1915, Last dose on Tue11/13/24 at 1115, Post-op/Post-Proc Start: 06-17-2022 End: 06-17-2022 take 2 g intravenously every eight hours ceFAZolin (ANCEF) 2 g in dextrose 100 mL premix IVPB celecoxib 100 mg oral capsule (8 sources) Nonsteroidal Anti-inflammatory Drug Start: 11-12-2024 End: 12-31-2024 take 1 capsule by mouth twice daily Celecoxib 100 MG capsule Take 1 capsule by mouth 2 times daily. 60 capsule 11/12/2024 12/31/2024 Discontinued cephalexin 500 mg oral capsule (7 sources) Cephalosporin Antibacterial Start: 04-21-2023 End: 05-06-2023 take 1 capsule by mouth every six hours cephALEXin 500 MG capsule Indications: Toe infection Take 1 capsule by mouth every 6 hours for 7 days. 28 capsule 0 04/29/2023 05/06/2023 ciprofloxacin 500 mg oral tablet (1 source) Quinolone Antimicrobial Start: 09-03-2010 End: 10-19-2011 take 1 tablet by mouth twice daily CIPRO, 500MG (Oral Tablet) 1 Tablet bid for 0 days Quantity: 20 {Tablet} Refills: 0 Ordered: 19-Oct-2011 EVA Charlton Start : 03-Sep-2010 End : 19-Oct-2011 Inactive citalopram 20 mg oral tablet (1 source) Serotonin Reuptake Inhibitor Start: 05-25-2010 End: 10-19-2011 take 2 tablets by mouth once daily CELEXA, 20MG (Oral Tablet) 2 (two) Tablet QD for 0 days Quantity: 180 {Tablet} Refills: 3 Ordered: 19-Oct-2011 EVA Charlton Start : 25-May-2010 End : 19-Oct-2011 Inactive clarithromycin 500 mg oral tablet (1 source) Macrolide Antimicrobial Start: 10-11-2007 End: 12-26-2007 take 2 tablets by mouth once daily BIAXIN XL PAC, 500MG (Oral Tablet Extended Release 24 Hour) 2 (two) Tablet ER 24HR daily for 14 days Quantity: 28 {Tablet_ER_24HR} Refills: 0 Ordered: 11-Oct-2007 Jere COSTA, Lorraine Jere COSTA, Elaine Kidd Start : 11-Oct-2007 End : 26-Dec-2007 Inactive clonazePAM 0.5 mg oral tablet (2 sources) Benzodiazepine Start: 05-26-2016 End: 02-04-2017 take 1 tablet by mouth once daily as needed ClonazePAM 0.5 MG Oral Tablet 1 (one) Tablet QD PRN for 0 days Quantity: 20 {Tablet} Refills: 0 Ordered: 04-Feb-2017 Tracy Joy LPN Start : 26-May-2016 End : 04-Feb-2017 Discontinued Comments: TWENTY Start: 11-30-2006 CLONAZEPAM, 0. 5MG (Oral Tablet Dispersible) 1 Tablet Disperse PRN for 0 days Quantity: 20 {Tablet_Disperse} Refills: 0 Ordered: 25-May-2010 EVA Charlton Start : 30-Nov-2006 Inactive Comment on above: TWENTY codeine phosphate 2 mg/ml / guaiFENesin 20 mg/ml oral solution (1 source) Opioid Agonist Start: 02-14-2015 End: 07-23-2015 CHERATUSSIN AC, 100-10MG/5ML (Oral Syrup) 1 (one) Syrup 1-2 tsp every 6 hours prn for 0 days Quantity: 8 {Fluid_Ounce} Refills: 0 Ordered: 23-Jul-2015 Tracy Joy LPN Start : 14-Feb-2015 End : 23-Jul-2015 Discontinued Comments: eight Comment on above: eight 1 ml dexamethasone phosphate 4 mg/ml injection (12 sources) Corticosteroid Start: 06-27-2025 End: 06-27-2025 dexAMETHasone (DECADRON) injection 2 mg Start: 06-27-2025 End: 06-27-2025 2 mg, Intra-articular, ONCE NEEDED, 1 dose, Starting on Lina 06/27/25 at 0810, Until Lina 06/27/25 at 0810 Start: 05-30-2025 End: 05-30-2025 dexAMETHasone (DECADRON) inj ection 2 mg Start: 05-30-2025 End: 05-30-2025 2 mg, Intra-articular, ONCE NEEDED, 1 dose, Starting on Lina 05/30/25 at 1130, Until Lina 05/30/25 at 1130 Start: 11-13-2024 End: 11-13-2024 take 10 mg intravenously every twenty-four hours 10 mg, Intravenous, EVERY 24 HOURS, 1 dose, First dose on Tue11/13/24 at 1215, 24 hours post op, Post-op/Post-Proc Start: 01-10-2024 End: 01-10-2024 dexAMETHasone (DECADRON) inj ection 4 mg Start: 01-10-2024 End: 01-10-2024 4 mg, Intra-articular, ONCE NEEDED, 1 dose, Starting on Tue01/10/24 at 1230, Until Tue01/10/24 at 1230 Start: 09-26-2023 End: 09-26-2023 dexAMETHasone (DECADRON) inj ection 4 mg Start: 06-21-2023 End: 06-21-2023 dexAMETHasone (DECADRON) inj ection 4 mg Start: 06-17-2022 End: 06-17-2022 dexAMETHasone (DECADRON) inj ection 10 mg diclofenac sodium 75 mg delayed release oral tablet (3 sources) Nonsteroidal Anti-inflammatory Drug Start: 02-24-2021 take 1 tablet by mouth twice daily diclofenac, EC, (VOLTAREN) 75 mg EC tablet Take 1 tablet by mouth twice daily. 90 tablet 0 02/24/2021 Suspended Comment on above: Take 1 tablet by mouth twice daily. DISABILITY PLACARD (7 sources) Start: 01-03-2025 End: 03-26-2025 DISABILITY PLACARD Indications: Hx of total knee arthroplasty, left Disability placard End date: 02/11/2025 R26.2 1 Each 01/03/2025 03/26/2025 Discontinued Start: 01-03-2025 End: 04-05-2025 DISABILITY PLACARD Indicatio ns: Hx of total knee arthroplasty, left Disability placard End date: 02/11/2025 R26.2 1 Each 01/03/2025 04/05/2025 Active docusate sodium 100 mg oral capsule (10 sources) Start: 11-12-2024 End: 12-31-2024 take 1 capsule by mouth twice daily Docusate 100 MG capsule Take 1 capsule by mouth 2 times daily. 60 capsule 11/12/2024 12/31/2024 Discontinued Start: 06-17-2022 End: 06-17-2022 docusate (COLACE) capsule 10 0 mg docusate sodium 50 mg / sennosides, fpc 8.6 mg oral tablet (1 source) Start: 11-12-2024 End: 11-13-2024 take 2 tablets by mouth twice daily as needed for constipation 2 tablet, Oral, 2 TIMES DAILY NEEDED, Starting on 11/12/24 at 1410, Until Tue11/13/24 at 1503, constipation, Post-op/Post-Proc doxycycline hyclate 100 mg oral capsule (5 sources) Tetracycli ne-class Drug Start: 06-14-2023 End: 06-28-2023 take 1 capsule by mouth once daily doxycycline hyclate 100 MG capsule Indications: Cellulitis and abscess of toe of left foot Take 1 capsule by mouth daily for 14 days. 14 capsule 0 06/14/2023 06/28/2023 Ertapenem (INVANZ) 1 g in sodium chloride 0.9% (MB PLUS) 50 mL (total volume) IVPB (7 sources) Start: 08-04-2023 End: 08-04-2023 Ertapenem (INVANZ) 1 g in sodium chloride 0.9% (MB PLUS) 50 mL (total volume) IVPB Start: 08-03-2023 End: 08-03-2023 Ertapenem (INVANZ) 1 g in so dium chloride 0.9% (MB PLUS) 50 mL (total volume) IVPB Start: 08-02-2023 End: 08-02-2023 Ertapenem (INVANZ) 1 g in so dium chloride 0.9% (MB PLUS) 50 mL (total volume) IVPB Start: 08-01-2023 End: 08-01-2023 Ertapenem (INVANZ) 1 g in so dium chloride 0.9% (MB PLUS) 50 mL (total volume) IVPB Start: 07-31-2023 End: 07-31-2023 Ertapenem (INVANZ) 1 g in so dium chloride 0.9% (MB PLUS) 50 mL (total volume) IVPB Start: 07-30-2023 End: 07-30-2023 Ertapenem (INVANZ) 1 g in so dium chloride 0.9% (MB PLUS) 50 mL (total volume) IVPB Start: 07-29-2023 End: 07-29-2023 Ertapenem (INVANZ) 1 g in so dium chloride 0.9% (MB PLUS) 50 mL (total volume) IVPB estradiol 0.01 mg vaginal tablet (1 source) Estrogen VAGIFEM, 10MCG (Vaginal Tablet) 1 tablet vaginally qd for 2 weeks then twice weekly (10 MCG) Inactive FLUoxetine 40 mg oral capsule (3 sources) Serotonin Reuptake Inhibitor Start: 02-04-2017 take 1 capsule by mouth once daily FLUoxetine HCl 40 MG Oral Capsule 1 (one) Capsule daily for 90 days Quantity: 90 {Capsule} Refills: 3 Ordered: 04-Feb-2017 Elaine Oquendo CNP, CNP, Mary E Start : 04-Feb-2017 Active Comments: Mail order. Start: 09-03-2013 End: 07-23-2015 take 1 capsule by mouth once daily PROZAC, 40MG (Oral Capsule) 1 Capsule daily for 0 days Quantity: 90 {Capsule} Refills: 3 Ordered: 23-Jul-2015 Tracy Joy LPN Start : 03-Sep-2013 End : 23-Jul-2015 Discontinued Comment on above: Mail order. furosemide 20 mg oral tablet (1 source) Loop Diuretic Start: 016 End: 016 take 0.5 tablet by mouth once daily FUROSEMIDE, 20MG (Oral Tablet) 1/2 (one half) Tablet daily for 0 days Quantity: 30 {Tablet} Refills: 0 Ordered: 04-Dec-2015 Roxann Yan MD Start : 04-Dec-2015 End : 04-Dec-2015 Inactive gabapentin 300 mg oral capsule (1 source) Anti-epileptic Agent take 1 capsule by mouth three times daily as needed GABAPENTIN, 300MG (Oral Capsule) 1 tid prn (300 MG) Inactive hydrocortisone acetate 25 mg rectal suppository (1 source) Corticosteroid ANUCORT-HC, 25MG (Rectal Suppository) 1 vaginally bid for 4 weeks (25 MG) Inactive 1 ml HYDROmorphone hydrochloride 1 mg/ml cartridge (2 sources) Opioid Agonist Start: End: take 0.5 mg intravenously every four hours as needed 0.5 mg, Intravenous, EVERY 4 HOURS NEEDED, Starting on Tue11/12/24 at 1410, Until Tue11/13/24 at 1503, Severe Pain, Post-op/Post-Pro c Start: 05-03-2024 End: 05-03-2024 0.5 mg, Intravenous, EVERY 1 5 MINUTES NEEDED, 3 doses, Starting on Lina 05/03/24 at 1432, Until Lina 05/03/24 at 1926, Severe Pain, Recovery Iohexol (OMNIPAQUE) 300 MG/ML 50 mL in Water po liquid (free water) 950 mL (1 source) Start: 10-19-2023 End: 10-19-2023 Iohexol (OMNIPAQUE) 300 MG/ML 50 mL in Water po liquid (free water) 950 mL iohexol (OMNIPAQUE) 350 MG/ML injection 1-171 mL (1 source) Start: 10-19-2023 End: 10-19-2023 iohexol (OMNIPAQUE) 350 MG/ML injection 1-171 mL ketorolac tromethamine 10 mg oral tablet (14 sources) Nonsteroidal Anti-inflammatory Drug, Cyclooxygenase Inhibitor Start: 02-13-2021 End: 01-06-2024 take 1 tablet by mouth every six hours as needed for pain ketorolac (TORADOL) 10 mg tablet Take 1 (one) tablet (10 mg total) by mouth every 6 (six) hours as needed for pain . 12 tablet 0 02/13/2021 01/06/2024 Discontinued lansoprazole 30 mg delayed release oral capsule (1 source) Proton Pump Inhibitor Start: 11-30-2006 End: 01-26-2008 PREVACID, 30MG (Oral Capsule Delayed Release) [address] QD for 0 days Refills: 0 Ordered: 26-Jan-2008 Roxann Yan MD Start : 30-Nov-2006 End : 26-Jan-2008 Discontinued 10 ml lidocaine hydrochloride 10 mg/ml injection (7 sources) Antiarrhythmic, Amide Local Anesthetic Start: 01-14-2025 End: 01-14-2025 20 mg (0.5 mL), Other, ONCE, 1 dose, On Tue01/14/25 at 0730, 2 spritz per nares prior to procedure. Start: 01-10-2024 End: 01-10-2024 Lidocaine (XYLOCAINE) 10 mg/ mL injection 4 mL Start: 01-10-2024 End: 01-10-2024 4 mL, Intra-articular, ONCE NEEDED, 1 dose, Starting on Tue01/10/24 at 1230, Until Tue01/10/24 at 1230 Start: 09-26-2023 End: 09-26-2023 Lidocaine (XYLOCAINE) 10 mg/ mL injection 4 mL Start: 06-21-2023 End: 06-21-2023 Lidocaine (XYLOCAINE) 10 mg/ mL injection 1 mL loratadine 10 mg oral tablet (2 sources) Start: 11-13-2024 End: 11-13-2024 take 10 mg by mouth once daily 10 mg, Oral, DAILY, First dose on Tue11/13/24 at 0900, Until Discontinued Start: 02-23-2013 End: 04-29-2014 take 1 capsule by mouth once daily CLARITIN, 10MG (Oral Capsule) 1 Capsule daily for 0 days Quantity: 30 {Capsule} Refills: 0 Ordered: 29-Apr-2014 EVA Charlton Start : 23-Feb-2013 End : 29-Apr-2014 Inactive losartan potassium 50 mg oral tablet (20 sources) Angiotensin 2 Receptor Benedicto Start: 05-03-2022 End: 08-20-2022 take 1 tablet by mouth once daily losartan (Cozaar) 50 MG tablet Indications: Essential hypertension Take 1 tablet by mouth daily. 90 tablet 3 05/03/2022 08/20/2022 Discontinued Start: 05-29-2021 take 1 tablet by robert th once daily losartan (Cozaar) 50 MG tablet Indications: Essential hypertension Take 1 tablet by mouth daily. 90 tablet 3 05/29/2021 Active Start: 01-12-2021 take 1 tablet by robert th once daily losartan (COZAAR) 25 MG tablet Take 1 (one) tablet (25 mg total) by mouth daily . 01/12/2021 Active magnesium hydroxide 80 mg/ml oral suspension (1 source) Start: 06-17-2022 End: 06-17-2022 take 30 mL by mouth every six hours as needed magnesium hydroxide (MILK OF MAGNESIA) oral suspension 30 mL meloxicam 15 mg oral tablet (4 sources) Nonsteroidal Anti-inflammatory Drug Start: 04-11-2020 take 1 tablet by mouth once daily meloxicam (MOBIC) 15 mg tablet Take 1 tablet by mouth once daily. 30 tablet 1 04/11/2020 Suspended End: 12-26-2007 take 1 tablet by mouth once daily MOBIC, 7.5MG (Oral Tablet) 1 QD for 0 days Refills: 0 Ordered: 26-Dec-2007 EVA Charlton End : 26-Dec-2007 Discontinued Comment on above: Take 1 tablet by robert once daily. methocarbamol 500 mg oral tablet (2 sources) Muscle Relaxant Start: 05-03-2024 End: 05-03-2024 take 750-1500 mg by mouth every eight hours as needed 750-1,500 mg, Oral, EVERY 8 HOURS NEEDED, Starting on Lina 05/03/24 at 1411, Until Lina 05/03/24 at 1926, Other, muscle spasm, Post-op/Post-Proc Start: 06-17-2022 End: 06-17-2022 take 750-1500 mg by mouth every eight hours as needed methocarbamol (ROBAXIN) tablet 750-1,500 mg 1 ml methylPREDNISolone acetate 80 mg/ml injection (1 source) Corticosteroid Start: 12-16-2022 End: 12-16-2022 methylPREDNISolone acetate (DEPO-MEDROL) injection metoclopramide 10 mg oral tablet (3 sources) Dopamine-2 Receptor Antagonist Start: 12-25-2024 End: 12-31-2024 Metoclopramide 10 MG tablet Take 1 tablet by mouth 4 times daily for 5 days. Try 1/2 tab initially if no effect ,try to double 20 tablet 1 12/25/2024 12/31/2024 Discontinued 24 hr mirabegron 50 mg extended release oral tablet (18 sources) beta3-Adrenergic Agonist Start: 04-16-2022 End: 11-22-2022 take 1 tablet by mouth once daily Mirabegron ER (Myrbetriq) 50 MG tablet Indications: Voiding dysfunction Take 1 tablet by mouth daily. 30 tablet 11 04/16/2022 11/22/2022 Discontinued End: 05-26-2022 take 1 tablet by mouth once daily Mirabegron ER 25 MG tablet Take 25 mg by mouth daily. Given by Dr. Garner 0 05/26/2022 Discontinued Misc. Devices Misc (19 sources) End: 11-23-2022 multivitamin with minerals 1 tablet (1 source) Start: 04-05-2025 End: 04-05-2025 take 1 tablet by mouth once 1 tablet, oral, Once, On Tue04/05/25 at 0715, For 1 dose NON-FORMULARY (19 sources) End: 11-22-2022 NON-FORMULARY 3 caps q daily of Balance of Nature 0 11/22/2022 Discontinued NON-FORMULARY 3 caps q daily of Balance of Nature 0 Active NON-FORMULARY 3 caps BID of Balance of Nature 0 Active omeprazole 20 mg delayed release oral capsule (20 sources) Proton Pump Inhibitor Start: 12-04-2015 End: 05-05-2016 PriLOSEC OTC 20 MG Oral Tablet Delayed Release [address] bid for 0 days Quantity: 180 {Tablet} Refills: 1 Ordered: 05-May-2016 EVA Charlton Start : 04-Dec-2015 End : 05-May-2016 Inactive Start: 04-08-2015 take 20 mg by mouth once daily Omeprazole Active 20 MG PO DAILY April 07, 2015 11:00pm Start: 08-01-2014 take 1 capsule by [facility] twice daily omeprazole (PRILOSEC) 20 mg capsule Indications: Follicular lymphoma (HCC) Take 1 capsule by mouth twice daily. 60 capsule 2 08/01/2014 Suspended Start: 12-26-2007 End: 12-26-2007 OMEPRAZOLE, 40MG (Oral Capsu le Delayed Release) Capsule DR QD for 0 days Quantity: 30 {Capsule_DR} Refills: 6 Ordered: 26-Dec-2007 EVA Charlton Start : 26-Dec-2007 End : 26-Dec-2007 Discontinued Comment on above: Mail order. Take 1 capsule by [facility] twice daily. ondansetron 4 mg disintegrating oral tablet (6 sources) Serotonin-3 Receptor Antagonist Start: 04-05-2025 End: 04-05-2025 take 4 mg by mouth once 4 mg, oral, Once, On Tue04/05/25 at 0650, For 1 dose Start: 04-05-2025 End: 04-05-2025 Starting on Tue04/05/25 at 0 649, For 1 dose, Created by cabinet override Start: 11-12-2024 End: 11-13-2024 take 4 mg intravenously every four hours as needed 4 mg, Intravenous, EVERY 4 HOURS NEEDED, Starting on Tue11/12/24 at 1410, Until Tue11/13/24 at 1503, Nausea / Vomiting, Post-op/Post-Proc Start: 05-03-2024 End: 05-03-2024 take 4 mg intravenously every eight hours as needed 4 mg, Intravenous, EVERY 8 HOURS NEEDED, Starting on Lina 05/03/24 at 1411, Until Lina 05/03/24 at 1926, Nausea / Vomiting, Post-op/Post-Proc Start: 06-17-2022 End: 06-17-2022 take 4 mg intravenously every eight hours as needed ondansetron 4mg/2ml (ZOFRAN) injection 4 mg Start: 04-17-2013 End: 07-23-2015 take 1 tablet by mouth every eight hours as needed for nausea ZOFRAN, 8MG (Oral Tablet) 1 Tablet q8hrs prn nausea for 0 days Quantity: 30 {Tablet} Refills: 0 Ordered: 23-Jul-2015 Benita MARTINEZ Tracy Start : 17-Apr-2013 End : 23-Jul-2015 Discontinued oxyCODONE hydrochloride 5 mg oral tablet (8 sources) Opioid Agonist Start: 11-12-2024 End: 11-13-2024 take 5-10 mg by mouth every four hours as needed 5-10 mg, Oral, EVERY 4 HOURS NEEDED, Starting on Tue11/12/24 at 1410, Until Tue11/13/24 at 1503, moderate-severe pain, If pain unrelieved with oxycodone, contact pharmacist to enter order for Oxycodone ER 10mg PO Q12H for 3 days, Post-op/Post-Proc Start: 11-12-2024 End: 12-31-2024 take 1-2 tablets by mouth every four to six hours as needed for pain oxyCODONE 5 MG tablet Indications: Acute postoperative pain of left knee Take 1-2 tabs po q 4-6 hours prn pain. Wean as tolerated. 30 tablet 11/12/2024 12/31/2024 Discontinued phenazopyridine hydrochloride 200 mg delayed release oral tablet (5 sources) Start: 06-07-2022 End: 08-20-2022 take 1 tablet by mouth three times daily phenazopyridine 200 MG tablet Take 1 tablet by mouth 3 times daily for 4 days. 12 tablet 0 06/07/2022 08/20/2022 Discontinued phenylephrine hydrochloride 25 mg/ml ophthalmic solution (9 sources) alpha-1 Adrenergic Agonist Start: 05-15-2025 End: 06-20-2025 Phenylephrine 2.5 % Solution Apply 1 drop to eye. 05/15/2025 06/20/2025 Discontinued Start: 05-15-2025 End: 05-16-2025 PHENYLephrine 2.5 % 1 drop ( AK-DILATE, ARCELIA-SYNEPHRINE) Start: 04-02-2024 End: 04-02-2024 PHENYLephrine 2.5 % 1 Drop ( AK-DILATE, RACELIA-SYNEPHRINE) Start: 08-08-2023 End: 08-09-2023 PHENYLephrine 2.5 % 1 Drop ( AK-DILATE, ARCELIA-SYNEPHRINE) potassium chloride 10 meq extended release oral tablet (1 source) End: 05-26-2022 take 2 tablets by mouth twice daily potassium chloride 10 MEQ Tab CR tablet ER Take 20 mEq by mouth 2 times daily. 0 05/26/2022 Discontinued proparacaine hydrochloride 5 mg/ml ophthalmic solution (9 sources) Local Anesthetic Start: 05-15-2025 End: 06-20-2025 proparacaine 0.5 % Solution Apply 1 drop to eye. 05/15/2025 06/20/2025 Discontinued Start: 05-15-2025 End: 05-16-2025 proparacaine 0.5 % 1 drop (A LCAINE) Start: 04-02-2024 End: 04-02-2024 proparacaine 0.5 % 1 Drop (A LCAINE) Start: 08-08-2023 End: 08-09-2023 proparacaine 0.5 % 1 Drop (A LCAINE) raNITIdine 150 mg oral tablet (1 source) Histamine-2 Receptor Antagonist Start: 08-12-2008 End: 08-22-2008 take 1 tablet by mouth twice daily RANITIDINE HCL, 150MG (Oral Tablet) 1 (one) Tablet BID for 0 days Quantity: 60 {Tablet} Refills: 6 Ordered: 12-Aug-2008 EVA Charlton Start : 12-Aug-2008 End : 22-Aug-2008 Inactive 50 ml riTUXimab 10 mg/ml injection (1 source) [id number] Cytolytic Antibody Start: 04-29-2014 End: 07-23-2015 RITUXAN, 10MG/ML (Intravenous Concentrate) 1 Concentrate every 8 weeks for 30 days Refills: 0 Ordered: 23-Jul-2015 Slarb Tracy MARTINEZ Start : 29-Apr-2014 End : 23-Jul-2015 Discontinued ROPivacaine HCl-NaCl 0.2-0.9 % On-Q pump (1 source) Start: 11-12-2024 End: 11-13-2024 Aaliyah-neural, CONTINUOUS, Starting on Tue11/12/24 at 1400, Until Tue11/13/24 at 1503, Recovery to Continue rosuvastatin calcium 40 mg oral tablet (4 sources) HMG-CoA Reductase Inhibitor Start: 02-04-2017 take 1 tablet by mouth once daily rosuvastatin (CRESTOR) 40 mg tablet Take 1 tablet by mouth once daily. 90 tablet 3 02/04/2017 Suspended Comment on above: Take 1 tablet by robert th once daily. 72 hr scopolamine 0.0139 mg/hr transdermal system (1 source) Anticholinergic Start: 04-17-2018 Transderm-Scop (1.5 MG) 1 MG/3DAYS Transdermal Patch 72 Hour 1 (one) Patch q 72 hrs prn motion sickness for 0 days Quantity: 1 {Box} Refills: 0 Ordered: 17-Apr-2018 Elaine Oquendo CNP, CNP, Mary E Start : 17-Apr-2018 Active sertraline 50 mg oral tablet (1 source) Serotonin Reuptake Inhibitor Start: 11-19-2011 End: 09-08-2012 ZOLOFT, 50MG (Oral Tablet) 1 Tablet 1/2 a day for 2 weeks and then daily for 0 days Quantity: 30 {Tablet} Refills: 3 Ordered: 08-Sep-2012 EVA Charlton Start : 19-Nov-2011 End : 08-Sep-2012 Inactive Comments: not with etoh Comment on above: not with etoh 1000 ml sodium chloride 9 mg/ml injection (13 sources) Start: 11-12-2024 End: 11-13-2024 take 1 mL intravenously every hour as needed Intravenous, at 100 mL/hr, CONTINUOUS, Starting on Tue11/12/24 at 1415, Until Tu11/13/24 at 1503, Convert IV to PRN adapter if adequate oral intake, Post-op/Post-Pro c Start: 05-03-2024 End: 05-03-2024 take 5 mL intravenously once 5 mL, Intravenous, ADMINI STER DIRECTED, Starting on Lina 05/03/24 at 1411, Until Lina 05/03/24 at 1926, Flush, per IV care guidelines, Post-op/Post-Proc Start: 05-03-2024 End: 05-03-2024 take 1 mL intravenously every hour Intravenous, at 100 mL/hr, CONTINUOUS, Starting on Lina 05/03/24 at 1415, Until Lina 05/03/24 at 1926, Convert IV to PRN adapter post op day 1 if PO intake >=300ml/shift, Post-op/Post-Proc Start: 01-10-2024 End: 01-10-2024 Sodium chloride (PF) 0.9 % injection 5 mL Start: 01-10-2024 End: 01-10-2024 5 mL, Intra-articular, ONCE NEEDED, 1 dose, Starting on Tue01/10/24 at 1230, Until Tue01/10/24 at 1230 Start: 10-19-2023 End: 10-19-2023 Sodium chloride (PF) 0.9 % injection 1-100 mL Start: 09-26-2023 End: 09-26-2023 Sodium chloride (PF) 0.9 % injection 5 mL Start: 12-16-2022 End: 12-16-2022 Sodium chloride 0.9% IV solu tion Start: 06-17-2022 End: 06-17-2022 Normal Saline Flush 0.9% inj ection 5 mL Start: 06-17-2022 End: 06-17-2022 sodium chloride 0.9% IV solu tion sucralfate 100 mg/ml oral suspension (1 source) Aluminum Complex Start: 10-22-2014 End: 07-23-2015 SUCRALFATE, 1GM/10ML (Oral Suspension) 1 Teaspoon(s) qid for 90 days Refills: 3 Ordered: 23-Jul-2015 Tracy Joy LPN Start : 22-Oct-2014 End : 23-Jul-2015 Discontinued therapeutic multivitamin-minera ls tablet (8 sources) Start: 11-12-2024 End: 12-31-2024 take 1 tablet by mouth at bedtime therapeutic multivitamin-minera ls tablet Take 1 tablet by mouth at bedtime. 30 tablet 11/12/2024 12/31/2024 Discontinued Start: 11-12-2024 take 1 tablet by robert th at bedtime therapeutic multivitamin-minerals tablet Take 1 tablet by mouth at bedtime. 30 tablet 11/12/2024 Active thiamine 100 mg oral tablet (1 source) Start: 04-05-2025 End: 04-05-2025 take 100 mg by mouth once 100 mg, oral, Once, On Tue04/05/25 at 0715, For 1 dose 24 hr tolterodine tartrate 4 mg extended release oral capsule (4 sources) Cholinergic Muscarinic Antagonist Start: 01-27-2022 End: 03-23-2022 take 1 capsule by mouth once daily tolterodine 4 MG Cap SR 24HR Take 1 capsule by mouth daily. 30 capsule 11 01/27/2022 03/23/2022 Discontinued tranexamic acid 650 mg oral tablet (1 source) Antifibrinolytic Agent Start: 11-12-2024 End: 11-12-2024 take 1 dose by mouth every two hours 1,950 mg, Oral, ONCE DIRECTED, 1 dose, Starting on Tue11/12/24 at 0939, Until Tue11/12/24 at 1021, See admin instructions, Administer 2 hours preop, Pre-op/Pre-Proc 1 ml triamcinolone acetonide 40 mg/ml injection (10 sources) Corticosteroid Start: 06-27-2025 End: 06-27-2025 triamcinolone (KENALOG-40) injection 0.5 mL Start: 06-27-2025 End: 06-27-2025 0.5 mL, Intra-articular, ONC E NEEDED, 1 dose, Starting on Tue06/27/25 at 0810, Until Lina 06/27/25 at 0810 Start: 05-30-2025 End: 05-30-2025 triamcinolone (KENALOG-40) i njection 0.5 mL Start: 05-30-2025 End: 05-30-2025 0.5 mL, Intra-articular, ONC E NEEDED, 1 dose, Starting on Tue05/30/25 at 1130, Until Lina 05/30/25 at 1130 Start: 01-10-2024 End: 01-10-2024 triamcinolone (KENALOG-40) i njection 2 mL Start: 01-10-2024 End: 01-10-2024 2 mL, Intra-articular, ONCE NEEDED, 1 dose, Starting on Tue01/10/24 at 1230, Until Tue01/10/24 at 1230 Start: 09-26-2023 End: 09-26-2023 triamcinolone (KENALOG-40) i njection 2 mL Start: 06-21-2023 End: 06-21-2023 triamcinolone (KENALOG-40) i njection 40 mg tropicamide 10 mg/ml ophthalmic solution (9 sources) Anticholinergic Start: 05-15-2025 End: 06-20-2025 tropicamide 1 % Solution Apply 1 drop to eye. 05/15/2025 06/20/2025 Discontinued Start: 05-15-2025 End: 05-16-2025 tropicamide 1 % 1 drop (MYDR IACYL) Start: 04-02-2024 End: 04-02-2024 tropicamide 1 % 1 Drop (MYDR IACYL) Start: 08-08-2023 End: 08-09-2023 tropicamide 1 % 1 Drop (MYDR IACYL) vancomycin 1000 mg injection (1 source) Glycopeptide Antibacterial Start: 06-17-2022 End: 06-17-2022 vancomycin (VANCOCIN) injection zolpidem tartrate 5 mg oral tablet (1 source) gamma-Aminobutyric Acid-ergic Agonist Start: 11-12-2024 End: 11-13-2024 take 5 mg by mouth once daily at bedtime as needed for sleep 5 mg, Oral, DAILY AT BEDTIME NEEDED, Starting on Tue11/12/24 at 1410, Until Tue11/13/24 at 1503, Sleep, Post-op/Post-Proc Problems Active Problems Problem Classification Problem Date Documented Date Episodic/Chronic Acute cerebrovascular disease (20 sources) Ischemic stroke; Translations: [Cerebral infarction, unspecified] Onset: 3 Resolved: 5 Chronic Administrative/social admission (2 sources) Pneumococcal immunization status; Translations: [Medical examinations/reports status] Resolved: 3 09-10-2015 Episodic Comment on above: colonscopy due 2020 Alcohol-related disorders (20 sources) Nondependent alcohol abuse, continuous; Translations: [History of alcohol abuse] Onset: 0 Resolved: 5 10-01-2015 Chronic Comment on above: long talk about need to stop. had cut back but back up to rum daily. drinks and come home from work and have few drinks everyday to wind down. 35 years never gone more than one day without etoh Anxiety disorders (20 sources) Anxiety; Translations: [Mixed anxiety and depressive disorder] Onset: 0 Resolved: 1 10-21-2011 Chronic Asthma (20 sources) Uncomplicated moderate persistent asthma; Translations: [Moderate persistent asthma, uncomplicated] Onset: 8 04-14-2018 Chronic Blindness and vision defects (20 sources) Visual impairment; Translations: [Unspecified visual loss] Onset: 3 10-30-2022 Chronic Cardiac dysrhythmias (20 sources) Ventricular premature beats; Translations: [Ventricular premature depolarization] Onset: 3 Resolved: 3 05-30-2020 Chronic Cataract (20 sources) Bilateral senile combined form cataracts of eyes; Translations: [Combined forms of age-related cataract, bilateral] Onset: 0 Resolved: 3 07-04-2020 Chronic Chronic kidney disease (20 sources) Chronic kidney disease stage 2; Translations: [Chronic kidney disease, stage 2 (mild)] Onset: 0 Resolved: 3 12-30-2021 Chronic Chronic kidney disease (2 sources) Chronic kidney disease; Translations: [Chronic kidney disease, stage 3a] Onset: 3 Chronic obstructive pulmonary disease and bronchiectasis (20 sources) Chronic obstructive lung disease; Translations: [Chronic obstructive pulmonary disease, unspecified] Onset: 8 06-30-2018 Chronic Chronic obstructive pulmonary disease and bronchiectasis (2 sources) Chronic obstructive pulmonary disease and bronchiectasis Chronic ulcer of skin (7 sources) Non-pressure chronic ulcer of other part of left foot with fat layer exposed; Translations: [Ulcer of other part of foot] Onset: 5 07-28-2023 Chronic Deficiency and other anemia (10 sources) Other vitamin B12 deficiency anemia; Translations: [Megaloblastic anemia due to vitamin B>12< deficiency] 06-10-2017 Episodic Deficiency and other anemia (1 source) Anemia, unspecified; Translations: [Anemia, unspecified] Onset: 3 Episodic Diabetes mellitus with complications (20 sources) Type 2 diabetes mellitus; Translations: [Type 2 diabetes mellitus with diabetic chronic kidney disease] Onset: 0 Resolved: 3 12-30-2021 Chronic Disorders of lipid metabolism (20 sources) Hyperlipidemia; Translations: [Hypertriglyceridemia] Onset: 3 Resolved: 3 09-09-2015 Chronic Comment on above: better chol really high and side effects of cancer med pt done (CPVR)soon and should be out of system 11-07. must come off nsaids no etoh. Diverticulosis and diverticulitis (20 sources) Diverticulum of duodenum; Translations: [Diverticulosis of small intestine without perforation or abscess without bleeding] Onset: 8 04-14-2018 Chronic E Codes: Fall (2 sources) Unspecified fall, initial encounter; Translations: [Unspecified fall, initial encounter] Onset: 3 Episodic Esophageal disorders (20 sources) Gastroesophageal reflux disease; Translations: [Gastroesophageal reflux disease without esophagitis] Onset: 8 06-10-2017 Chronic Comment on above: prilosec otc helps b ut some nausea in afternoon so will go to bid on prilosecInsurance not coverinmg prilosec, pt will check with insurance what medication is covered and will call us to let us kniow, now on omeprazole has hiatal hernia and reflux Esophageal disorders (1 source) Esophageal disorders Essential hypertension (20 sources) Hypertensive disorder; Translations: [Essential hypertension] Onset: 6 Resolved: 1 06-10-2017 Chronic Comment on above: high today but upset . at home slightly up Gastritis and duodenitis (20 sources) Chronic gastritis; Translations: [Unspecified chronic gastritis without bleeding] Onset: 2 12-01-2021 Chronic Gastritis and duodenitis (2 sources) Gastritis; Translations: [Gastritis (Renamed from Gastric catarrh)] Resolved: 4 04-29-2014 Episodic Comment on above: 06-05 EGD. PPI alone not help used carafate for awhile and help but ran out. then signs and symptoms came back off irritants. no etoh, nsaids. was on baby asa and stop that yesterday. 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; Translations: [Idiopathic chronic gout, unspecified site, without tophus (tophi)] Onset: 9 11-07-2018 Chronic Heart valve disorders (4 sources) Heart murmur; Translations: [Heart murmur (Renamed from Cardiac murmur)] Resolved: 3 09-03-2013 Episodic Hypertension with complications and secondary hypertension (20 sources) Hypertensive urgency ; Translations: [Hypertensive urgency] Onset: 3 Resolved: 3 11-09-2022 Chronic Immunity disorders (20 sources) Hypogammaglobulinemia; Translations: [Nonfamilial hypogammaglobulinemia] 04-06-2017 Chronic Immunizations and screening for infectious disease (2 sources) Need for prophylactic vaccination and inoculation against influenza Episodic Infective arthritis and osteomyelitis (except that caused by tuberculosis or sexually transmitted disease) (1 source) Osteomyelitis, unspecified; Translations: [Osteomyelitis, unspecified] Onset: 3 Chronic Leukemias (20 sources) Leukemia in remission; Translations: [Chronic lymphoid leukemia, disease] Onset: 5 06-10-2017 Chronic Comment on above: CLL diagnosed [address]Jennifor Bhakta at [facility] Lymphadenitis (4 sources) Lymphadenopathy; Translations: [Lymphadenitis, unspecified, except mesenteric] Resolved: 3 12-04-2015 Episodic Mood disorders (20 sources) Depression; Translations: [Depressive disorder] Onset: 3 06-10-2017 Chronic Comment on above: off Prozac because w eight gain. mood okay but not sleeping. do counselor if need. holidays hard. will try benadryl with melatonin Mood disorders (20 sources) Mood disorders; Translations: [Depression, unspecified] Onset: 9 Resolved: 9 04-13-2019 Nutritional deficiencies (20 sources) Vitamin D deficiency; Translations: [Vitamin D deficiency, unspecified] Onset: 8 06-10-2017 Chronic Occlusion or stenosis of precerebral arteries (20 sources) Bilateral stenosis of carotid arteries; Translations: [Occlusion and stenosis of bilateral carotid arteries] Onset: 3 11-09-2022 Chronic Open wounds of head; neck; and trunk (2 sources) Laceration without foreign body of other part of head, initial encounter; Translations: [Laceration without foreign body of other part of head, initial encounter] Onset: 3 Episodic Osteoarthritis (20 sources) Arthritis; Translations: [Primary gonarthrosis, bilateral] Onset: 5 Resolved: 5 06-10-2017 Chronic Other acquired deformities (1 source) Lumbar spondylolisthesis; Translations: [Spondylolisthesis, lumbar region] 01-10-2024 Episodic Other aftercare (1 source) Surgical follow-up; Translations: [Encounter for follow-up examination after completed treatment for conditions other than malignant neoplasm] Episodic Other aftercare (1 source) Long-term current use of benzodiazepine; Translations: [Other skilled nursing (current) drug therapy] 04-05-2025 Episodic Other aftercare (2 sources) 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; Translations: [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] Onset: 5 Episodic Other aftercare (2 sources) Encounter for therapeutic drug level monitoring; Translations: [Encounter for therapeutic drug level monitoring] Onset: 5 Episodic Other bone disease and musculoskeletal deformities (20 sources) Idiopathic scoliosis of lumbar spine; Translations: [Other idiopathic scoliosis, lumbar region] Onset: 1 10-07-2021 Chronic Other bone disease and musculoskeletal deformities (1 source) Other idiopathic scoliosis, lumbar region; Translations: [Other idiopathic scoliosis, lumbar region] Onset: 1 Chronic Other circulatory disease (20 sources) Presence of other cardiac implants and grafts; Translations: [Other specified cardiac device in situ] Onset: 4 03-01-2024 Chronic Other circulatory disease (2 sources) H/O: atrial fibrillation; Translations: [Personal history of other diseases of the circulatory system] Episodic Other circulatory disease (2 sources) Orthostatic hypotension; Translations: [Orthostatic hypotension] Onset: 5 Episodic Other circulatory disease (2 sources) Personal history of transient ischemic attack (TIA), and cerebral infarction without residual deficits; Translations: [Personal history of transient ischemic attack (TIA), and cerebral infarction without residual deficits] Onset: 5 Episodic Other connective tissue disease (20 sources) History of total knee arthroplasty; Translations: [Presence of right artificial knee joint] Onset: 8 04-14-2018 Chronic Other connective tissue disease (1 source) History of left total knee replacement; Translations: [Presence of left artificial knee joint] 12-03-2024 Chronic Other connective tissue disease (4 sources) Presence of left artificial knee joint; Translations: [Presence of left artificial knee joint] Onset: 5 Chronic Other connective tissue disease (2 sources) Presence of right artificial knee joint; Translations: [Presence of right artificial knee joint] Onset: 8 Chronic Other connective tissue disease (2 sources) Pain of left calf; Translations: [Pain in left lower leg] 12-05-2024 Episodic Other connective tissue disease (2 sources) Pain of toe of left foot; Translations: [Pain in left toe(s)] 05-16-2025 Episodic Other connective tissue disease (2 sources) Plantar fasciitis; Translations: [Plantar fascial fibromatosis] 05-30-2025 Episodic Other connective tissue disease (2 sources) Pain in left foot; Translations: [Pain in left foot] 05-30-2025 Episodic Other connective tissue disease (2 sources) Myofascial pain; Translations: [Myalgia, other site] 07-09-2025 Episodic Other connective tissue disease (2 sources) Pain in left toe(s); Translations: [Pain in left toe(s)] Onset: 5 Episodic Other diseases of bladder and urethra (1 source) Detrusor overactivity; Translations: [Overactive bladder] Chronic Other diseases of bladder and urethra (3 sources) Urethral hypermobility; Translations: [Hypermobility of urethra] Episodic Other eye disorders (20 sources) Optic atrophy of left eye; Translations: [Unspecified optic atrophy] Onset: 3 08-08-2023 Chronic Other eye disorders (1 source) Unspecified optic atrophy; Translations: [Optic atrophy of left eye] Onset: 3 Chronic Other eye disorders (2 sources) Other optic atrophy, left eye; Translations: [Other optic atrophy, left eye] Onset: 4 Chronic Other eye disorders (2 sources) Cataract extraction status, unspecified eye; Translations: [Cataract extraction status, unspecified eye] Onset: 5 Episodic Other female genital disorders (3 sources) Vaginal bleeding; Translations: [Vaginal bleeding] Resolved: 6 12-04-2015 Episodic Comment on above: irritation on vagife ma nd now startin prednisone cream 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 Other gastrointestinal disorders (20 sources) Intolerance to food; Translations: [Malabsorption due to intolerance, not elsewhere classified] Onset: 9 04-13-2019 Chronic Other gastrointestinal disorders (2 sources) Malabsorption due to intolerance, not elsewhere classified; Translations: [Malabsorption due to intolerance, not elsewhere classified] Onset: 9 Chronic Other gastrointestinal disorders (11 sources) Dysphagia; Translations: [Dysphagia, unspecified] 06-10-2017 Episodic Other gastrointestinal disorders (5 sources) Heartburn; Translations: [Heartburn (Renamed from Brash)] Resolved: 5 02-14-2015 Episodic Comment on above: occassional ? relate ded to rituxanhas been on rituxin x 1 yrworsening GI complaints Other hematologic conditions (20 sources) Macrocytosis; Translations: [Other specified diseases of blood and blood-forming organs] Onset: 1 04-14-2021 Chronic Other hematologic conditions (2 sources) Other specified diseases of blood and blood-forming organs; Translations: [Other specified diseases of blood and blood-forming organs] Onset: 1 Chronic Other infections; including parasitic (6 sources) Disorder due to infection; Translations: [Unspecified infectious disease] 07-22-2023 Episodic Other infections; including parasitic (1 source) Recurrent infectious disease; Translations: [Unspecified infectious disease] 05-10-2025 Episodic Other infections; including parasitic (2 sources) Unspecified infectious disease; Translations: [Unspecified infectious disease] Onset: 5 Episodic Other injuries and conditions due to external causes (2 sources) Motion sickness; Translations: [Motion sickness] 06-10-2017 Episodic Other injuries and conditions due to external causes (2 sources) Unspecified injury of head, initial encounter; Translations: [Unspecified injury of head, initial encounter] Onset: 3 Episodic Other liver diseases (6 sources) Fatty liver; Translations: [Steatosis of liver] 06-10-2017 Chronic Comment on above: off etoh. using alev e talk about can bother liver. need to loose weight. talk about 21 day work up done and liver secondary labs okay us fatty liver. Other liver diseases (20 sources) Steatosis of liver; Translations: [Fatty (change of) liver, not elsewhere classified] Onset: 8 04-14-2018 Chronic Other liver diseases (2 sources) Fatty (change of) liver, not elsewhere classified; Translations: [Fatty (change of) liver, not elsewhere classified] Onset: 8 Chronic Other nervous system disorders (6 sources) Neuropathy; Translations: [Other specified mononeuropathies] 05-20-2025 Chronic Other nervous system disorders (4 sources) Other specified mononeuropathies; Translations: [Other specified mononeuropathies] Onset: 5 Chronic Other nervous system disorders (2 sources) Other chronic pain; Translations: [Other chronic pain] Onset: 5 Chronic Other nutritional; endocrine; and metabolic disorders (11 sources) Obesity, unspecified; Translations: [Obesity (BMI 30-39.9)] Onset: 3 Chronic Other nutritional; endocrine; and metabolic disorders (1 source) Obesity; Translations: [Obesity, unspecified] 06-10-2017 Chronic Comment on above: long talk about weig ht loss and 21 day purification. Other nutritional; endocrine; and metabolic disorders (20 sources) Body mass index 30+ - obesity; Translations: [Obesity, unspecified] Onset: 6 Resolved: 7 06-10-2017 Chronic Other nutritional; endocrine; and metabolic disorders (20 sources) Obese class I; Translations: [Obesity, unspecified] Onset: 9 11-06-2018 Chronic Other nutritional; endocrine; and metabolic disorders (20 sources) Cholesterol level - finding; Translations: [Lipoprotein deficiency] Onset: 9 09-26-2019 Chronic Other nutritional; endocrine; and metabolic disorders (20 sources) Obese class II; Translations: [Obesity, unspecified] Onset: 3 10-31-2022 Chronic Other nutritional; endocrine; and metabolic disorders (20 sources) Hypoproteinemia; Translations: [Other disorders of glycoprotein metabolism] Onset: 3 05-13-2023 Chronic Other nutritional; endocrine; and metabolic disorders (20 sources) Hypomagnesemia; Translations: [Hypomagnesemia] Onset: 3 05-13-2023 Chronic Other nutritional; endocrine; and metabolic disorders (2 sources) Hypomagnesemia; Translations: [Hypomagnesemia] Onset: 3 Chronic Other nutritional; endocrine; and metabolic disorders (2 sources) Other disorders of glycoprotein metabolism; Translations: [Other disorders of glycoprotein metabolism] Onset: 3 Chronic Other nutritional; endocrine; and metabolic disorders (2 sources) Lipoprotein deficiency; Translations: [Lipoprotein deficiency] Onset: 9 Chronic Other skin disorders (2 sources) Swollen calf; Translations: [Other specified soft tissue disorders] 12-05-2024 Episodic Other upper respiratory disease (20 sources) Allergic rhinitis; Translations: [Other allergic rhinitis] Onset: 8 04-14-2018 Chronic Other upper respiratory disease (2 sources) Other allergic rhinitis; Translations: [Other allergic rhinitis] Onset: 8 Chronic Other upper respiratory disease (1 source) Pain in throat Episodic Other upper respiratory infections (20 sources) Chronic sinusitis; Translations: [Chronic sinusitis, unspecified] Onset: 8 04-14-2018 Chronic Other upper respiratory infections (6 sources) Acute sinusitis; Translations: [Acute sinusitis, unspecified] Resolved: 5 07-29-2015 Episodic Comment on above: luis romeo not bet ter in 1 week or bacterial signs and symptoms ? allergies or viral at this point not think bacterial infection. Peripheral and visceral atherosclerosis (20 sources) Abdominal aortic atherosclerosis; Translations: [Atherosclerosis of aorta] Onset: 4 10-31-2023 Chronic Prolapse of female genital organs (2 sources) Midline cystocele; Translations: [Cystocele, midline] Chronic Residual codes; unclassified (1 source) Periodic limb movement disorder; Translations: [Periodic limb movement] 06-10-2017 Chronic Residual codes; unclassified (20 sources) Obstructive sleep apnea syndrome; Translations: [Obstructive sleep apnea (adult) (pediatric)] Onset: 8 06-10-2017 Chronic Comment on above: on cpap was severe. recheck PFT to see if DLCO better since treat because pulm htn could make highDr. Jesus Residual codes; unclassified (3 sources) Obstructive sleep apnea (adult) (pediatric); Translations: [PERCY (obstructive sleep apnea)] Onset: 3 Chronic Residual codes; unclassified (1 source) Abnormal rapid eye movement sleep; Translations: [Abnormal REM sleep] 06-10-2017 Episodic Comment on above: needs CPap, accordin g to sleep study result will ask to follow up with Dr Warren Has apt Sep 11. Called Dr. Dixon office asking them to follow up on sleep study result. Residual codes; unclassified (2 sources) Patient encounter status; Translations: [Encounter for procedure for purposes other than remedying health state, unspecified] Episodic Residual codes; unclassified (1 source) Other specified conditions influencing health status; Translations: [Alcohol use disorder] 04-05-2025 Episodic Residual codes; unclassified (1 source) Other specified postprocedural states; Translations: [Status post eye surgery] Onset: 5 Episodic Residual codes; unclassified (5 sources) Caffeine user; Translations: [Other specified health status] Onset: 5 06-20-2025 Episodic Residual codes; unclassified (2 sources) Other specified health status; Translations: [Other specified health status] Onset: 5 Episodic Retinal detachments; defects; vascular occlusion; and retinopathy (20 sources) Occlusion of left central retinal artery; Translations: [Central retinal artery occlusion, left eye] Onset: 3 11-01-2022 Chronic Rheumatoid arthritis and related disease (1 source) Rheumatoid arthritis, unspecified; Translations: [Rheumatoid arthritis, unspecified] Onset: 3 Chronic Spondylosis; intervertebral disc disorders; other back problems (20 sources) Lumbar spondylosis; Translations: [Spondylosis without myelopathy or radiculopathy, lumbar region] Onset: 1 10-07-2021 Chronic Spondylosis; intervertebral disc disorders; other back problems (20 sources) Chronic low back pain; Translations: [Chronic midline low back pain without sciatica] Onset: 1 Resolved: 5 10-07-2021 Episodic Sprains and strains (2 sources) Sprain of left shoulder; Translations: [Unspecified sprain of left shoulder joint, initial encounter] Episodic Substance-related disorders (1 source) Tobacco dependence in remission; Translations: [Tobacco abuse, in remission (Renamed from Tobacco dependence in remission)] 06-10-2017 Chronic Substance-related disorders (3 sources) Benzodiazepine withdrawal; Translations: [Sedative, hypnotic or anxiolytic use, unspecified with withdrawal, uncomplicated] Onset: 5 04-05-2025 Episodic Thyroid disorders (20 sources) Hyperthyroidism; Translations: [Thyrotoxicosis, unspecified without thyrotoxic crisis or storm] Onset: 4 01-23-2024 Chronic Transient cerebral ischemia (3 sources) Transient cerebral ischemia; Translations: [Transient cerebral ischemic attack, unspecified] Onset: 3 10-31-2022 Chronic Unclassified (2 sources) Nausea & vomiting (787.01) Unclassified (3 sources) ELEVATED LFT (794.8) Unclassified (7 sources) Alcohol abuse, continuous drinking behavior (305.01) Unclassified (3 sources) Hypertriglycerides (272.1) Unclassified (6 sources) Lymphoma, low grade (202.80) Unclassified (4 sources) Abdominal Pain,General (789.07) Unclassified (13 sources) Hypertension 401.1 (Renamed from Hypertension (401.0)) Unclassified (7 sources) Well Woman Exam (V72.31) (Pap,Mammo,Routine Female) (Renamed from Well Woman V72.31 (p,m)) Unclassified (3 sources) SYMPTOM, SPLENOMEGALY (789.2) Unclassified (3 sources) Non-smoker; Translations: [Non-smoker] Resolved: 7 06-10-2017 Unclassified (2 sources) Tobacco abuse, in remission (Renamed from Tobacco dependence in remission) Unclassified (3 sources) ABNORMAL BLOOD CHEMISTRY NEC (790.6) Unclassified (4 sources) Ovarian Cyst, Unspecified (620.2) Unclassified (3 sources) PERCY on CPAP Unclassified (2 sources) Lymphoma, low grade Unclassified (3 sources) Periodic limb movement Unclassified (3 sources) Abnormal REM sleep Unclassified (1 source) Well woman exam Unclassified (2 sources) LEFT EYE BLINDNESS 10-30-2022 Comment on above: LEFT EYE BLINDNESS Unclassified (1 source) Vision loss 10-30-2022 Unclassified (1 source) Alcohol use, unspecified, uncomplicated; Translations: [Alcohol use, unspecified, uncomplicated] Onset: 5 Unclassified (2 sources) Other low back pain; Translations: [Other low back pain] Onset: 5 Unclassified (1 source) Low back pain, unspecified; Translations: [Low back pain, unspecified] Onset: 5 Unclassified (1 source) Pain in other specified joint; Translations: [Pain in other specified joint] Onset: 4 Unclassified (1 source) Other esophagitis without bleeding; Translations: [Other esophagitis without bleeding] Onset: 8 Unclassified (1 source) Obesity, class 1; Translations: [Obesity, class 1] Onset: 9 Unclassified (1 source) Personal history of COVID-19; Translations: [Personal history of COVID-19] Onset: 4 Past or Other Problems Problem Classification Problem Date Documented Da te Episodic/Chronic Abdominal hernia (20 sources) Hiatal hernia; Translations: [Diaphragmatic hernia without obstruction or gangrene] Onset: 04-14-2018 04-14-2018 Episodic Abdominal pain (20 sources) Abdominal pain; Translations: [Generalized abdominal pain] Onset: 03-23-2018 Resolved: 04-14-2018 09-08-2015 Episodic Comment on above: some better on caraf ateLeft upper and left lower Acute bronchitis (20 sources) Acute bronchitis; Translations: [Acute bronchitis, unspecified] Onset: 10-01-2020 Resolved: 10-20-2020 10-20-2020 Episodic Benign neoplasm of uterus (20 sources) Uterine leiomyoma; Translations: [Leiomyoma of uterus, unspecified] Onset: 10-31-2023 10-31-2023 Episodic Blindness and vision defects (20 sources) Irregular astigmatism of right eye; Translations: [Irregular astigmatism, right eye] Onset: 07-04-2020 Resolved: 06-20-2025 07-04-2020 Episodic Blindness and vision defects (20 sources) Regular astigmatism of left eye; Translations: [Regular astigmatism, left eye] Onset: 07-04-2020 07-04-2020 Episodic Calculus of urinary tract (20 sources) Kidney stone; Translations: [Calculus of kidney] Onset: 05-13-2023 05-13-2023 Episodic Cancer of cervix (20 sources) Atypical squamous cells of undetermined significance on cervical Papanicolaou smear; Translations: [Atypical squamous cells of undetermined significance on cytologic smear of cervix (ASC-US)] Onset: 04-14-2021 04-14-2021 Episodic Cardiac dysrhythmias (20 sources) Bradycardia; Translations: [Bradycardia, unspecified] Onset: 08-20-2022 Episodic Chronic obstructive pulmonary disease and bronchiectasis (1 source) Bronchitis; Translations: [Bronchitis] Resolved: 12-04-2015 12-04-2015 Episodic Complication of device; implant or graft (20 sources) Blocked central line; Translations: [Other mechanical complication of infusion catheter, initial encounter] Onset: 08-24-2019 Resolved: 03-18-2020 03-18-2020 Episodic Conditions associated with dizziness or vertigo (20 sources) Lightheadedness; Translations: [Dizziness and giddiness] Onset: 12-31-2024 Resolved: 06-20-2025 12-31-2024 Episodic Coronary atherosclerosis and other heart disease (2 sources) Coronary atherosclerosis and other heart disease Deficiency and other anemia (20 sources) Anemia; Translations: [Anemia, unspecified] Onset: 03-23-2022 Resolved: 07-09-2024 09-09-2015 Episodic Deficiency and other anemia (20 sources) Iron deficiency anemia; Translations: [Iron deficiency anemia, unspecified] Onset: 07-09-2024 07-10-2024 Episodic Deficiency and other anemia (2 sources) Iron deficiency anemia, unspecified; Translations: [Iron deficiency anemia, unspecified] Onset: 07-09-2024 Episodic Deficiency and other anemia (3 sources) Deficiency and other anemia Diabetes mellitus without complication (20 sources) Type 2 diabetes mellitus without complication; Translations: [Type 2 diabetes mellitus without complications] Onset: 07-06-2019 Resolved: 12-21-2019 12-21-2019 Chronic Diabetes mellitus without complication (20 sources) Impaired fasting glucose; Translations: [Impaired fasting glycaemia] Onset: 04-14-2018 Resolved: 07-06-2019 06-10-2017 Episodic Diseases of white blood cells (9 sources) Leukocytosis; Translations: [Lymphocytosis] Onset: 12-16-2011 Resolved: 09-03-2013 09-12-2015 Chronic Comment on above: has come down Esophageal disorders (20 sources) Esophagitis; Translations: [Esophagitis, Clyo grade A] Onset: 04-14-2018 Resolved: 04-13-2019 06-30-2018 Episodic Fluid and electrolyte disorders (20 sources) Dehydration; Translations: [Hyponatremia] Onset: 11-22-2022 Resolved: 09-03-2013 09-03-2013 Episodic Comment on above: IV fluid labs etc Genitourinary symptoms and ill-defined conditions (20 sources) Dysuria; Translations: [Increased frequency of urination] Onset: 04-14-2021 Resolved: 06-29-2023 09-12-2015 Episodic Headache; including migraine (20 sources) Temporal headache; Translations: [Headache, temporal] Onset: 11-01-2022 11-01-2022 Episodic Hemorrhoids (20 sources) Hemorrhoids without complication; Translations: [Residual hemorrhoidal skin tags] Onset: 04-14-2018 04-14-2018 Episodic Inflammation; infection of eye (except that caused by tuberculosis or sexually transmitteddisease) (20 sources) Allergic conjunctivitis of bilateral eyes; Translations: [Acute atopic conjunctivitis, bilateral] Onset: 03-18-2020 03-18-2020 Episodic Joint disorders and dislocations; trauma-related (20 sources) Tear of meniscus of knee; Translations: [Unspecified tear of unspecified meniscus, current injury, right knee, initial encounter] Onset: 08-20-2014 Resolved: 04-14-2018 04-14-2018 Episodic Malaise and fatigue (20 sources) Fatigue; Translations: [Other fatigue] Onset: 10-01-2020 10-01-2020 Episodic Menopausal disorders (20 sources) Postmenopausal bleeding; Translations: [Postmenopausal bleeding] Onset: 02-14-2014 Resolved: 04-14-2018 04-14-2018 Chronic Nausea and vomiting (20 sources) Nausea and vomiting; Translations: [Nausea] Onset: 10-01-2020 Resolved: 12-30-2021 10-03-2015 Episodic Comment on above: ? 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 stable now. will be off treatment 05-17-14 [facility] IVIG untill 4-16 labs monthlyAnt Bertrand 05/03/16(monthly blood work)low grade B small cell Dr. Garcia Nonspecific chest pain (20 sources) Chest pain; Translations: [Chest discomfort] Onset: 12-02-2012 Resolved: 04-14-2018 09-09-2015 Episodic Comment on above: related to anxiety a typical Nutritional deficiencies (20 sources) Unspecified vitamin B deficiency; Translations: [Folic acid deficiency] Onset: 07-06-2021 Resolved: 09-03-2013 09-03-2013 Episodic Open wounds of extremities (20 sources) Open wound of lesser toe of left foot; Translations: [Unspecified open wound of left lesser toe(s) without damage to nail, initial encounter] Onset: 05-13-2023 Resolved: 01-23-2024 05-13-2023 Episodic Other acquired deformities (2 sources) Spondylolisthesis, lumbar region; Translations: [Spondylolisthesis, lumbar region] Onset: 01-10-2024 Episodic Other aftercare (20 sources) Long-term current use of anticoagulant; Translations: [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 (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 of anticoagulants] Onset: 11-23-2022 11-23-2022 Episodic Other aftercare (2 sources) assisted (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 of anticoagulants; Translations: [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 (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 of anticoagulants] Onset: 11-23-2022 Episodic Other bone disease and musculoskeletal deformities (20 sources) X-ray evidence of poor mineralization; Translations: [Other specified disorders of bone density and structure, unspecified site] Onset: 12-30-2021 12-30-2021 Episodic Other bone disease and musculoskeletal deformities (20 sources) Osteopenia; Translations: [Other specified disorders of bone density and structure, unspecified site] Onset: 12-30-2021 12-30-2021 Episodic Other bone disease and musculoskeletal deformities (2 sources) Other specified disorders of bone density and structure, unspecified site; Translations: [Other specified disorders of bone density and structure, unspecified site] Onset: 12-30-2021 Episodic Other circulatory disease (20 sources) Orthostatic hypotension; Translations: [Orthostatic hypotension] Onset: 11-01-2024 11-01-2024 Episodic Other circulatory disease (20 sources) History of cerebrovascular accident; Translations: [Personal history of transient ischemic attack (TIA), and cerebral infarction without residual deficits] Onset: 12-31-2024 12-31-2024 Episodic Other connective tissue disease (20 sources) Biceps tendinitis; Translations: [Bicipital tendinitis, left shoulder] Onset: 03-30-2021 03-30-2021 Episodic Other connective tissue disease (3 sources) Bicipital tendinitis, left shoulder; Translations: [Bicipital tenosynovitis] Onset: 03-30-2021 03-30-2021 Episodic Other connective tissue disease (2 sources) Pain in left lower leg; Translations: [Pain in left lower leg] Onset: 12-05-2024 Episodic Other connective tissue disease (2 sources) Other specified soft tissue disorders; Translations: [Other specified soft tissue disorders] Onset: 12-05-2024 Episodic Other diseases of kidney and ureters (20 sources) Cyst of kidney; Translations: [Cyst of kidney, acquired] Onset: 04-14-2018 04-14-2018 Episodic Other diseases of kidney and ureters (2 sources) Cyst of kidney, acquired; Translations: [Cyst of kidney, acquired] Onset: 04-14-2018 Episodic Other eye disorders (20 sources) Dry eyes; Translations: [Dry eye syndrome of bilateral lacrimal glands] Onset: 07-04-2020 07-04-2020 Episodic Other eye disorders (20 sources) Bilateral pinguecula of eyes; Translations: [Pinguecula, bilateral] Onset: 07-04-2020 07-04-2020 Episodic Other eye disorders (2 sources) Pinguecula, bilateral; Translations: [Pinguecula, bilateral] Onset: 07-04-2020 Episodic Other eye disorders (2 sources) Dry eye syndrome of bilateral lacrimal glands; Translations: [Dry eye syndrome of bilateral lacrimal glands] Onset: 07-04-2020 Episodic Other gastrointestinal disorders (1 source) Splenomegaly; Translations: [SYMPTOM, SPLENOMEGALY] Resolved: 09-03-2013 09-03-2013 Episodic Other gastrointestinal disorders (20 sources) Esophageal dysphagia; Translations: [Other dysphagia] Onset: 03-23-2018 Resolved: 04-14-2018 04-14-2018 Episodic Other gastrointestinal disorders (20 sources) Swallowing painful; Translations: [Dysphagia, unspecified] Onset: 04-14-2018 Resolved: 12-30-2021 04-13-2019 Episodic Other gastrointestinal disorders (4 sources) Splenomegaly; Translations: [Splenomegaly, not elsewhere classified] Onset: 12-16-2011 Resolved: 09-01-2012 09-01-2012 Episodic Other gastrointestinal disorders (2 sources) Dysphagia, unspecified; Translations: [Dysphagia, unspecified] Onset: 12-25-2024 Episodic Other hematologic conditions (20 sources) History of anemia; Translations: [Personal history of diseases of the blood and blood-forming organs and certain disorders involving the immune mechanism] Onset: 04-14-2018 Resolved: 07-09-2024 04-14-2018 Episodic Other infections; including parasitic (20 sources) Personal history of other infectious and parasitic diseases; Translations: [History of COVID-19] Onset: 10-31-2023 10-31-2023 Episodic Other liver diseases (20 sources) Large liver; Translations: [Hepatomegaly, not elsewhere classified] Onset: 05-12-2018 05-12-2018 Episodic Other liver diseases (2 sources) Hepatomegaly, not elsewhere classified; Translations: [Hepatomegaly, not elsewhere classified] Onset: 05-12-2018 Episodic Other nervous system disorders (20 sources) Paresthesia of right lower limb; Translations: [Paresthesia of skin] Onset: 11-06-2018 Resolved: 03-18-2020 03-18-2020 Episodic Other nervous system disorders (4 sources) Other acute postprocedural pain; Translations: [Pain in joint, lower leg] Onset: 12-05-2024 11-12-2024 Episodic Other nervous system disorders (1 source) Reduced mobility; Translations: [Other abnormalities of gait and mobility] Onset: 06-12-2024 06-12-2024 Episodic Other nervous system disorders (2 sources) Other abnormalities of gait and mobility; Translations: [Other abnormalities of gait and mobility] Onset: 06-12-2024 Episodic Other non-traumatic joint disorders (7 sources) Pain in left knee; Translations: [Knee pain] Onset: 12-05-2024 06-10-2017 Episodic Comment on above: had right knee TKA ( after bone collapse from cement) Other non-traumatic joint disorders (20 sources) Pain in right knee; Translations: [Pain in joint, lower leg] Onset: 06-12-2014 Resolved: 04-14-2018 04-14-2018 Episodic Other non-traumatic joint disorders (20 sources) Joint pain; Translations: [Pain in unspecified joint] Onset: 04-04-2012 Resolved: 04-14-2018 04-14-2018 Episodic Other nutritional; endocrine; and metabolic disorders (20 sources) Severe obesity; Translations: [Morbid (severe) obesity due to excess calories] Onset: 08-10-2017 Resolved: 11-06-2018 11-06-2018 Chronic Other nutritional; endocrine; and metabolic disorders (20 sources) Abnormal weight loss; Translations: [Abnormal weight loss] Onset: 04-14-2018 Resolved: 06-30-2018 06-30-2018 Episodic Other screening for suspected conditions (not mental disorders or infectious disease) (20 sources) Blood chemistry abnormal; Translations: [Abnormal finding of blood chemistry, unspecified] Onset: 10-23-2013 Resolved: 04-14-2018 06-10-2017 Episodic Comment on above: labs and us good exc ept fatty liver. off etoh no nsaids. hold pravastatin. mild elevation.side effects of cancer med pt done soon and should be out of system 1-15. must come off nsaids no etoh. Other skin disorders (20 sources) Inflamed seborrheic keratosis; Translations: [Inflamed seborrheic keratosis] Onset: 07-06-2019 03-18-2020 Episodic Other skin disorders (2 sources) Inflamed seborrheic keratosis; Translations: [Inflamed seborrheic keratosis] Onset: 03-18-2020 Episodic Ovarian cyst (1 source) Cyst of ovary; Translations: [Cyst of ovary, unspecified laterality] Resolved: 09-03-2013 09-12-2015 Episodic Comment on above: recheck test 07-05 go [place] and had talk to general utility worker. Pneumonia (except that caused by tuberculosis or sexually transmitted disease) (1 source) Pneumonia (except that caused by tuberculosis or sexually transmitted disease) Residual codes; unclassified (1 source) Influenza-like symptoms; Translations: [Flu-like symptoms] Resolved: 12-04-2015 12-04-2015 Episodic Residual codes; unclassified (20 sources) Insomnia; Translations: [Insomnia, unspecified] Onset: 04-14-2018 06-10-2017 Episodic Comment on above: Has sleep apnea and uses Cpap Residual codes; unclassified (20 sources) Postmenopausal state; Translations: [Asymptomatic menopausal state] Onset: 02-14-2023 06-10-2017 Episodic Residual codes; unclassified (1 source) Needs influenza immunization; Translations: [Need for prophylactic vaccination and inoculation against influenza] Resolved: 04-29-2014 07-29-2015 Episodic Residual codes; unclassified (20 sources) FH: Alzheimer's disease; Translations: [Family history of epilepsy and other diseases of the nervous system] Onset: 08-20-2022 Episodic Residual codes; unclassified (20 sources) History of arthroscopic procedure on shoulder; Translations: [Other specified postprocedural states] Onset: 07-13-2021 07-13-2021 Episodic Residual codes; unclassified (20 sources) FH: Hypertension; Translations: [Family history of ischemic heart disease and other diseases of the circulatory system] Onset: 10-09-2024 10-09-2024 Episodic Residual codes; unclassified (2 sources) Asymptomatic menopausal state; Translations: [Asymptomatic menopausal state] Onset: 02-14-2023 Episodic Residual codes; unclassified (2 sources) Insomnia, unspecified; Translations: [Insomnia, unspecified] Onset: 04-14-2018 Episodic Residual codes; unclassified (2 sources) Acquired absence of ovaries, unilateral; Translations: [Acquired absence of ovaries, unilateral] Onset: 04-14-2018 Episodic Residual codes; unclassified (2 sources) Family history of epilepsy and other diseases of the nervous system; Translations: [Family history of epilepsy and other diseases of the nervous system] Onset: 07-10-2024 Episodic Residual codes; unclassified (2 sources) Family history of ischemic heart disease and other diseases of the circulatory system; Translations: [Family history of ischemic heart disease and other diseases of the circulatory system] Onset: 10-09-2024 Episodic Screening and history of mental health and substance abuse codes (20 sources) Ex-smoker; Translations: [Personal history of nicotine dependence] Onset: 04-14-2018 04-14-2018 Episodic Skin and subcutaneous tissue infections (20 sources) Infection of toe ; Translations: [Local infection of the skin and subcutaneous tissue, unspecified] Onset: 07-29-2023 Resolved: 10-31-2023 04-21-2023 Episodic Superficial injury; contusion (2 sources) Contusion of scalp, initial encounter; Translations: [Contusion of scalp, initial encounter] Onset: 03-31-2022 Episodic Unclassified (20 sources) Onset: 07-29-2023 Resolved: 11-14-2024 07-29-2023 Unclassified (1 source) Deliveries (Parity); Translations: [Deliveries (Parity)] 06-10-2017 Comment on above: Term, 2 Unclassified (6 sources) Patient encounter status; Translations: [Encounter for screening fecal occult blood testing] 06-10-2017 Unclassified (2 sources) Screening status; Translations: [Encounter for screening for malignant neoplasm of colon (Renamed from Special screening for malignant neoplasms, colon)] 02-04-2017 Unclassified (2 sources) History of clinical finding in subject; Translations: [H/O motion sickness] 06-10-2017 Unclassified (1 source) Pregnancies (); Translations: [Pregnancies ()] 06-10-2017 Comment on above: 3 Unclassified (4 sources) Unspecified Diagnosis Resolved: 12-04-2015 06-10-2017 Unclassified (2 sources) Hepatospleen scan Resolved: 09-03-2013 09-03-2013 Unclassified (1 source) SYMPTOM, DYSURIA (788.1) Unclassified (2 sources) WWV V73.21 Resolved: 09-03-2013 09-03-2013 Unclassified (2 sources) BMI 37.0-37.9, adult Unclassified (1 source) Physical exam, routine Unclassified (1 source) Encounter for screening mammogram for breast cancer (Renamed from Screening mammogram, encounter for) Unclassified (1 source) Postmenopausal (Renamed from Postmenopausal status) Unclassified (1 source) LYMPHADENITIS NOS (289.3) Unclassified (1 source) Abortions/Miscarriage s; Translations: [Abortions/Miscarriag es] 06-10-2017 Comment on above: Spontaneous , 1, 1st trimester Unclassified (2 sources) History of left total knee replacement 12-05-2024 Unclassified (1 source) Alcohol use, unspecified, uncomplicated; Translations: [Alcohol use, unspecified, uncomplicated] Onset: 04-04-2025 Unclassified (2 sources) Skin ulcer of fourth toe of left foot, limited to breakdown of skin 05-30-2025 Unclassified (2 sources) Other low back pain; Translations: [Other low back pain] Onset: 06-07-2025 Unclassified (1 source) Low back pain, unspecified; Translations: [Low back pain, unspecified] Onset: 06-20-2025 Unclassified (1 source) Pain in other specified joint; Translations: [Pain in other specified joint] Onset: 10-15-2024 Unclassified (1 source) Other esophagitis without bleeding; Translations: [Other esophagitis without bleeding] Onset: 10-09-2024 Unclassified (1 source) Obesity, class 1; Translations: [Obesity, class 1] Onset: 10-09-2024 Unclassified (1 source) Personal history of COVID-19; Translations: [Personal history of COVID-19] Onset: 10-09-2024 Urinary tract infections (20 sources) Acute urinary tract infection; Translations: [Urinary tract infection, site not specified] Onset: 04-14-2021 Resolved: 05-26-2022 04-14-2021 Episodic Viral infection (20 sources) Disease caused by 2019-nCoV; Translations: [COVID-19] Onset: 10-01-2020 Resolved: 10-31-2023 10-01-2020 Episodic Results Test Name Value Interpretation Reference Range Facility LOWER EXTREMITY INJECTION: l eft plantar fasciaon 06-27-2025 Jone Lyons PM 06/27/2025 8:11 AM LOWER EXTREMITY INJECTION: left plantar fascia Date/Time: 06/27/2025 8:10 AM Performed by: Dawn Uriarte DPM Authorized by: Dawn Uriarte DPM Supporting Documentation Indications: pain Procedure Details: Procedure: tendon sheath / ligament injection Location: foot - left plantar fascia Needle size: 25 G Approach: plantar (medial-plantar) Medication Verification: I have personally verified and performed the final check of the medication(s) used in this procedure prior to administration. The following items were included during the verification process for medication(s) administered: drug name, strength, volume, expiration, physical integrity and appearance of the medication(s). Medications administered: 0.5 mL triamcinolone 40 MG/ML; 2 mg dexAMETHasone 4 MG/ML Patient tolerance: patient tolerated the procedure well with no immediate complications Consent: Consent was obtained prior to the procedure after discussion of the risks, benefits and alternatives, and expected outcomes were discussed with the patient. The possibilities of reaction to medication, bleeding, infection, the need for additional procedures, failure to diagnosis a condition, and creating a complication requiring operation were discussed with the patient. The patient concurred with the proposed plan, giving consent. Preparation: Patient was prepped in the usual sterile fashion. The patient was prepped with chlorhexidine. [facility] Radiology Study observation (narrative) [facility] MAGNESIUMon 06-20-2025 Magnesium [Mass/Vol] 1.9 mg/dL Normal 1.6-2.3 [facility] Comment on above: Performed By: #### M G #### Testing performed at [address] [address] MRI FOOT LEFT WITHOUT CONTRA STon 06-20-2025 MRI FOOT LEFT WITHOUT CONTRAST EXAM: MRI FOOT LEFT WITHOUT CONTRAST HISTORY: Left fourth toe infection with an ulcer to the fourth toe for 2 years. Foot pain. COMPARISON: Left foot x-rays from 05/16/2025. TECHNIQUE: Multiplanar and multisequence imaging of the left foot was performed without contrast. FINDINGS: Motion artifact degrades evaluation on this study with motion more pronounced on the sagittal STIR images. No acute fracture or dislocation is evident. There is no metatarsal stress fracture. There is mild joint space narrowing of the first metatarsophalangeal joint and IP joint of the first toe. There is mild to moderate degenerative change of the DIP joint of the second toe with joint space narrowing and spurring. There is no MRI evidence of osteomyelitis. No definite MRI findings of cellulitis are evident and correlation with the clinical findings would be helpful. There is no focal abscess. The ulcer of the fourth toe described in the clinical history may be along the plantar aspect of the fourth toe, but is not well delineated on MRI. Flexor and extensor tendons in the midfoot and forefoot appear intact with no focal tendon tear. There is no tenosynovitis. There is no focal abnormality involving the plantar aponeurosis. IMPRESSION: 1. No MRI evidence of osteomyelitis in the left foot. 2. No acute or healing fracture. 3. No focal abscess. There may be a small ulcer along the plantar aspect of the fourth toe and correlation with the clinical history would be helpful. 4. No MRI findings of cellulitis. Normal [facility] 25 0H VITAMIN D LEVELon 05-25 25 0H VITAMIN D LEVEL 39.5 NG/ML Normal [facility] Comment on above: Result Comment: DEFICIENT <20 NG/ML INSUFFICIENT 20-<30 NG/ML SUFFICIENT 30-100 NG/ML POTENTIAL TOXICITY >100 NG/ML Performed By: #### T SH2, FEPRO, T42, VITD #### Testing performed at [address] [address] CBCon 06-15-2025 ABSOLUTE BAS 0.0 10*3/uL Normal 0.0-0.2 [facility] Comment on above: Performed By: #### A CBC, BMPF #### Testing performed at [address] [address] ABSOLUTE EOS 0.0 10*3/uL Normal 0.0-0.7 [facility] Comment on above: Performed By: #### A CBC, BMPF #### Testing performed at [address] [address] ABSOLUTE NEUTROPHIL COUNT 2.9 10*3/uL Normal 1.4-6.5 [facility] Comment on above: Performed By: #### A CBC, BMPF #### Testing performed at [address] [address] Basophils/100 WBC (Bld) 0.6 % Normal 0.0-2.0 [facility] Comment on above: Performed By: #### A CBC, BMPF #### Testing performed at [address] [address] DTYPE AUTO DIFF Normal [facility] Comment on above: Performed By: #### A CBC, BMPF #### Testing performed at [address] [address] Eosinophils/100 WBC (Bld) 0.6 % Normal 0.0-11.0 [facility] Comment on above: Performed By: #### A CBC, BMPF #### Testing performed at [address] [address] Lymphocytes (Bld) [#/Vol] 1.8 10*3/uL Normal 1.2-3.4 [facility] Comment on above: Performed By: #### A CBC, BMPF #### Testing performed at [address] [address] Lymphocytes/100 WBC (Bld) 34.1 % Normal 20.0-55.0 [facility] Comment on above: Performed By: #### A CBC, BMPF #### Testing performed at [address] [address] Monocytes (Bld) [#/Vol] 0.5 10*3/uL Normal 0.0-0.7 [facility] Comment on above: Performed By: #### A CBC, BMPF #### Testing performed at [address] [address] Monocytes/100 WBC (Bld) 9.9 % Normal 0.0-10.0 [facility] Comment on above: Performed By: #### A CBC, BMPF #### Testing performed at [address] [address] Neutrophils/100 WBC (Bld) 54.8 % Normal 37.0-75.0 [facility] Comment on above: Performed By: #### A CBC, BMPF #### Testing performed at [address] [address] Erythrocyte distribution width (RBC) [Ratio] 15.9 % High 11.5-14.5 [facility] Comment on above: Performed By: #### A CBC, BMPF #### Testing performed at [address] [address] Hematocrit (Bld) [Volume fraction] 39.0 % Normal 36.0-48.0 [facility] Comment on above: Performed By: #### A CBC, BMPF #### Testing performed at [address] [address] Hemoglobin (Bld) [Mass/Vol] 13.4 g/dL Normal 12.0-16.0 [facility] Comment on above: Performed By: #### A CBC, BMPF #### Testing performed at [address] [address] MCH (RBC) [Entitic mass] 32.6 pg Normal 26.0-35.0 [facility] Comment on above: Performed By: #### A CBC, BMPF #### Testing performed at [address] [address] MCHC (RBC) [Mass/Vol] 34.3 g/dL Normal 27.0-37.0 [facility] Comment on above: Performed By: #### A CBC, BMPF #### Testing performed at [address] [address] MCV (RBC) [Entitic vol] 95.2 fL Normal 80.0-100.0 [facility] Comment on above: Performed By: #### A CBC, BMPF #### Testing performed at [address] [address] Platelet mean volume (Bld) [Entitic vol] 8.2 fL Normal 7.4-11.0 [facility] Comment on above: Performed By: #### A CBC, BMPF #### Testing performed at [address] [address] Platelets (Bld) [#/Vol] 185 10*3/uL Normal 130-400 [facility] Comment on above: Performed By: #### A CBC, BMPF #### Testing performed at [address] [address] RBC (Bld) [#/Vol] 4.10 10*6/uL Normal 4.0-5.4 [facility] Comment on above: Performed By: #### A CBC, BMPF #### Testing performed at [address] [address] WBC (Bld) [#/Vol] 5.2 10*3/uL Normal 3.6-11.0 [facility] Comment on above: Performed By: #### A CBC, BMPF #### Testing performed at [address] [address] CMP FASTINGon 06-15-2025 A:G RATIO 1.5 RATIO Normal [facility] Comment on above: Performed By: #### A CBC, BMPF #### Testing performed at [address] [address] Albumin [Mass/Vol] 4.2 g/dL Normal 3.5-5.0 [facility] Comment on above: Performed By: #### A CBC, BMPF #### Testing performed at [address] [address] ALP [Catalytic activity/Vol] 72 U/L Normal 38-126 [facility] Comment on above: Performed By: #### A CBC, BMPF #### Testing performed at [address] [address] ALT [Catalytic activity/Vol] 63 U/L High <35 [facility] Comment on above: Performed By: #### A CBC, BMPF #### Testing performed at [address] [address] AST [Catalytic activity/Vol] 129 U/L High 14-36 [facility] Comment on above: Performed By: #### A CBC, BMPF #### Testing performed at [address] [address] Bilirubin [Mass/Vol] 0.6 mg/dL Normal 0.2-1.3 [facility] Comment on above: Performed By: #### A CBC, BMPF #### Testing performed at [address] [address] Calcium [Mass/Vol] 9.3 mg/dL Normal 8.4-10.2 [facility] Comment on above: Performed By: #### A CBC, BMPF #### Testing performed at [address] [address] Chloride [Moles/Vol] 98 mmol/L Normal 98-107 [facility] Comment on above: Result Comment: Petr kuhn note: Triglyceride levels of 600mg/dL or higher may positively bias chloride results by approximately 2.1 mmol Performed By: #### A CBC, BMPF #### Testing performed at [address] [address] CO2 [Moles/Vol] 30 mmol/L Normal 22-30 [facility] Comment on above: Performed By: #### A CBC, BMPF #### Testing performed at [address] [address] Creatinine [Mass/Vol] 0.70 mg/dL Normal 0.70-1.20 [facility] Comment on above: Performed By: #### A CBC, BMPF #### Testing performed at [address] [address] GFR Information Average GFR for 60-6 9 years old = 85. Normal [facility] Comment on above: Result Comment: Bilingual Hr Generalist chanda Kidney disease, GFR = <60. Kidney failure, GFR = <15. The GFR estimate is not adjusted for extreme body surface area or acute process, nor has it been validated for women or ethnic groups other than and . MDRD Equation Performed By: #### A CBC, BMPF #### Testing performed at [address] [address] GFR/1.73 sq M.predicted MDRD (S/P/Bld) [Vol rate/Area] 89 mL/min/{1.73_m2} Normal [facility] Comment on above: Performed By: #### A CBC, BMPF #### Testing performed at [address] [address] Glucose [Mass/Vol] 112 mg/dL High 70-100 [facility] Comment on above: Result Comment: NORMAL <100 mg/dL PREDIABETES 101-126 mg/dL DIABETES 126 mg/dL or higher Performed By: #### A CBC, BMPF #### Testing performed at [address] [address] Potassium [Moles/Vol] 3.6 mmol/L Normal 3.5-5.1 [facility] Comment on above: Performed By: #### A CBC, BMPF #### Testing performed at [address] [address] Protein [Mass/Vol] 7.0 g/dL Normal 6.3-8.2 [facility] Comment on above: Performed By: #### A CBC, BMPF #### Testing performed at [address] [address] Sodium [Moles/Vol] 135 mmol/L Low 137-145 [facility] Comment on above: Performed By: #### A CBC, BMPF #### Testing performed at [address] [address] Urea nitrogen [Mass/Vol] 11 mg/dL Normal 7-20 [facility] Comment on above: Performed By: #### A CBC, BMPF #### Testing performed at [address] [address] FERRITINon 06-15-2025 Ferritin [Mass/Vol] 27 ng/mL Normal 11.1-264 [facility] Comment on above: Result Comment: EUGENIE ENOPAUSAL FEMALES 6.9-282.5 POSTMENOPAUSAL FEMALES 14.0-233.1 Performed By: #### A CBC, BMPF #### Testing performed at [address] [address] FOLATEon 06-15-2025 FOLATE >20.0 High 2.56-20.0 [facility] Comment on above: Performed By: #### P CR #### Testing performed at [address] [address] FREE T4on 06-15-2025 Free T4 [Mass/Vol] 1.12 ng/dL Normal 0.78-2.19 [facility] Comment on above: Performed By: #### T SH2, FEPRO, T42, VITD #### Testing performed at [address] [address] HEMOGLOBIN A1Con 06-15-2025 Glucose [Mass/Vol] 114 mg/dL Normal [facility] Comment on above: Performed By: #### P CR #### Testing performed at [address] [address] HbA1c (Bld) [Mass fraction] 5.6 % Normal 0-6 [facility] Comment on above: Result Comment: NORMAL <5.7% PREDIABETES 5.7-6.4% DIABETES 6.5% OR HIGHER Performed By: #### P CR #### Testing performed at [address] [address] IRON PROFILEon 06-15-2025 IRON BINDING 539 UG/DL High 250-450 [facility] Comment on above: Performed By: #### T SH2, FEPRO, T42, VITD #### Testing performed at [address] [address] TRANSFERRIN SATURATION,CALCULATE D 8 % Normal [facility] Comment on above: Performed By: #### T SH2, FEPRO, T42, VITD #### Testing performed at [address] [address] Iron [Mass/Vol] 41 ug/dL Normal 37-170 [facility] Comment on above: Performed By: #### T SH2, FEPRO, T42, VITD #### Testing performed at [address] [address] LIPID PROFILEon 06-15-2025 Cholesterol [Mass/Vol] 268 mg/dL High 107-217 [facility] Comment on above: Performed By: #### A CBC, BMPF #### Testing performed at [address] [address] Cholesterol in HDL [Mass/Vol] 84 mg/dL High 33-75 [facility] Comment on above: Performed By: #### A CBC, BMPF #### Testing performed at [address] [address] Cholesterol in LDL [Mass/Vol] 129 mg/dL High <100 [facility] Comment on above: Result Comment: Friyudith dwald formula Performed By: #### A CBC, BMPF #### Testing performed at [address] [address] Cholesterol in VLDL [Mass/Vol] 55 mg/dL High 5-25 [facility] Comment on above: Performed By: #### A CBC, BMPF #### Testing performed at [address] [address] Cholesterol.total/Ch olesterol in HDL [Mass ratio] 3.19 {ratio} Normal [facility] Comment on above: Result Comment: RISK TOTAL/HDL RATIO MEN WOMEN 1/2 AVERAGE 3.43 3.27 AVERAGE 4.97 4.44 2X AVERAGE 9.55 7.05 3X AVERAGE 23.99 11.04 Performed By: #### A CBC, BMPF #### Testing performed at [address] [address] Triglyceride [Mass/Vol] 277 mg/dL High 0-150 [facility] Comment on above: Performed By: #### A CBC, BMPF #### Testing performed at [address] [address] MAGNESIUMon 06-15-2025 Magnesium [Mass/Vol] 1.2 mg/dL Low 1.6-2.3 [facility] Comment on above: Performed By: #### A CBC, BMPF #### Testing performed at [address] [address] MALB/CREAT RATIO,URINEon MALB/CREAT RATIO,URINE 13.2 mg MALB/g CREAT Normal 1.3-30.0 [facility] Comment on above: Performed By: #### T SH2, FEPRO, T42, VITD #### Testing performed at [address] [address] MICROALBUMIN,RANDOM URINE 8.9 mg/L Normal 0.0-16.7 [facility] Comment on above: Performed By: #### T SH2, FEPRO, T42, VITD #### Testing performed at [address] [address] URINE CREATININE RANDOM 67.2 MG/DL Normal [facility] Comment on above: Result Comment: NO N ORMAL VALUES ESTABLISHED FOR RANDOM SPECIMENS Performed By: #### T SH2, FEPRO, T42, VITD #### Testing performed at [address] [place] [address] PROTEIN CREATININE RATIOon 0 06-15-2025 PROTEIN CREATININE RATIO 0.2 Normal [facility] Comment on above: Result Comment: REFERENCE RANGES <0.2 NORMAL 0.2-3.5 NON-NEPHROTIC >3.5 NEPHROTIC Performed By: #### P CR #### Testing performed at [address] [address] URINE CREATININE RANDOM 66.4 MG/DL Normal [facility] Comment on above: Result Comment: NO N ORMAL VALUES ESTABLISHED FOR RANDOM SPECIMENS Performed By: #### P CR #### Testing performed at [address] [address] URINE TP RANDOM 12 MG/DL Normal 0-12 [facility] Comment on above: Performed By: #### P CR #### Testing performed at [address] [address] PTH,INTACTon 06-15-2025 PTH,INTACT 24.9 pg/mL Normal 14.5-75.2 [facility] Comment on above: Performed By: #### A CBC, BMPF #### Testing performed at [address] [address] TSHon 06-15-2025 TSH 0.810 uIU/ML Normal 0.465-4.680 [facility] Comment on above: Performed By: #### T SH2, FEPRO, T42, VITD #### Testing performed at [address] [place] [address] URIC ACIDon 06-15-2025 Urate [Mass/Vol] 5.8 mg/dL Normal 2.4-6.0 [facility] Comment on above: Performed By: #### A CBC, BMPF #### Testing performed at [address] [place] [address] VITAMIN B12on 06-15-2025 Cobalamin (Vitamin B12) [Mass/Vol] 896 pg/mL Normal 239-931 [facility] Comment on above: Performed By: #### A CBC, BMPF #### Testing performed at [facility] [address] [place] [address] CT SPINE LUMBAR WITHOUT CONT RASTon 06-11-2025 CT SPINE LUMBAR WITHOUT CONTRAST EXAM TYPE: CT SPINE LUMBAR WITHOUT CONTRAST EXAM DATE AND TIME: 06/07/2025 3:11 PM EDT INDICATION: 65 years old Female with pain COMPARISON: MRI same day TECHNIQUE: CT imaging of the lumbar spine was obtained without contrast. Dose reduction techniques were achieved by using automated exposure control and/or adjustment of mA and/or kV according to patient size and/or use of iterative reconstruction technique. FINDINGS: There are 5 nonrib-bearing lumbar vertebrae. Unchanged alignment of the lumbar spine. Vertebral body heights are maintained. No acute displaced fracture identified. Moderate multilevel degenerative disc disease and facet arthropathy throughout the lumbar spine. No CT evidence of focal large central disc herniation or severe spinal canal stenosis. See separate lumbar spine report for further characterization. The visualized bony pelvis appears congruent with surgical changes from bilateral SI fusion. Hardware appears intact. Limited evaluation of the abdominopelvic viscera is without acute or suspicious abnormality. IMPRESSION: Postsurgical and degenerative changes without acute osseous abnormality. Normal [facility] MRI SPINE LUMBAR WITHOUT CON TRASTon 06-11-2025 MRI SPINE LUMBAR WITHOUT CONTRAST EXAM: MRI SPINE LUMBAR WITHOUT CONTRAST REASON FOR EXAM: lumbar stenosis with NC. TECHNIQUE: Multiplanar, multisequence imaging of the lumbar spine was performed without contrast COMPARISON: CT scan same date, prior MRI 06/20/2023. FINDINGS: There are 5 nonrib-bearing lumbar vertebrae. Unchanged alignment of the lumbar spine. Vertebral body heights are maintained. The bone marrow signal is somewhat heterogeneous, favoring to represent red marrow reconversion. Modic type I changes are present at the L4-L5 level. Mild edema is noted in the left L5-S1 facet with a small joint effusion, potentially reflecting acute facet arthropathy. Otherwise, no acute or aggressive osseous abnormality is evident. The visualized bony pelvis appears congruent with partially imaged bilateral sacroiliac joint fusion hardware. Limited evaluation of the abdominopelvic viscera is without acute or suspicious abnormality. Simple appearing right renal cyst is present and unchanged. L1-L2: No focal disc herniation identified. No spinal canal or neural foraminal stenosis. L2-L3: Broad-based disc bulge with superimposed broad-based left foraminal lateral protrusion. Mild to moderate spinal canal stenosis. Moderate bilateral neural foraminal stenosis, left greater than right secondary to disc osteophyte complex and facet arthropathy. This has progressed from prior study. L3-L4: Mild broad-based disc bulge with mild spinal canal stenosis. Moderate bilateral neural foraminal stenosis, right greater than left secondary to disc osteophyte complex and facet arthropathy. L4-L5: Broad-based disc bulge with probable small central disc extrusion with superior migration. Moderate spinal canal stenosis. Moderate bilateral neural foraminal stenosis secondary to disc osteophyte complex and facet arthropathy. This has not significantly changed. L5-S1: Mild broad-based disc bulge without spinal canal stenosis. More focal broad-based left foraminal lateral protrusion. Moderate left and mild right neural foraminal stenosis. This is unchanged. IMPRESSION: 1. Moderate multilevel degenerative disc disease throughout the lumbar spine as described above. Interval progression of stenosis at the L2-L3 level, otherwise, no significant change. 2. Surgical changes from bilateral SI fusion, partially imaged Normal [facility] LOWER EXTREMITY INJECTION: l eft plantar fasciaon 05-30-2025 Jone Lyons PM 05/30/2025 12:47 PM LOWER EXTREMITY INJECTION: left plantar fascia Date/Time: 05/30/2025 11:30 AM Performed by: Dawn Uriarte DPM Authorized by: Dawn Uriarte DPM Supporting Documentation Indications: pain Procedure Details: Procedure: tendon sheath / ligament injection Location: foot - left plantar fascia Needle size: 25 G Approach: plantar (medial-plantar) Medication Verification: I have personally verified and performed the final check of the medication(s) used in this procedure prior to administration. The following items were included during the verification process for medication(s) administered: drug name, strength, volume, expiration, physical integrity and appearance of the medication(s). Medications administered: 0.5 mL triamcinolone 40 MG/ML; 2 mg dexAMETHasone 4 MG/ML Patient tolerance: patient tolerated the procedure well with no immediate complications Consent: Consent was obtained prior to the procedure after discussion of the risks, benefits and alternatives, and expected outcomes were discussed with the patient. The possibilities of reaction to medication, bleeding, infection, the need for additional procedures, failure to diagnosis a condition, and creating a complication requiring operation were discussed with the patient. The patient concurred with the proposed plan, giving consent. Preparation: Patient was prepped in the usual sterile fashion. The patient was prepped with chlorhexidine. [facility] Radiology Study observation (narrative) [facility] FUNDUS PHOTOS OU (BOTH EYES) on 05-15-2025 [facility] Radiology Study observation (narrative) [facility] YAG CAPSULOTOMY OD (RIGHT EY E)on 05-15-2025 [facility] WOUND CULTUREon 05-10-2025 WOUND CULTURE SPECIMEN DESCRIPTION LEFT FOOT SPECIAL REQUESTS OPEN WOUND OF 4TH TOE GRAM SMEAR NO * Result Note: WBC'S SEEN * * Result Note: RARE * * Result Note: GRAM POSITIVE COCCI * COLONY COUNT HEAVY GROWTH CULTURE NORMAL SKIN QUINTON PRESENT * Result Note: Testing performed at [place] [address] * REPORT STATUS 05/12/2025 * Result Note: FINAL * Normal [facility] Comment on above: Performed By: #### W DC #### Testing performed at [address] [address] XR FOOT LEFT 3+ VIEWSon 04-23 XR FOOT LEFT 3+ VIEWS EXAMINATION: XR FOOT LEFT 3+ VIEWS, 05/10/2025 11:45 AM EDT INDICATION: Fourth toe wound with drainage. COMPARISON: 06/14/2023. 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 No evidence for periostitis or bony erosion. No fracture or significant malalignment. No soft tissue gas. Moderate spurring of the calcaneus. IMPRESSION: 1. Mild interphalangeal osteoarthritis. 2. Calcaneal spurring. Normal [facility] XR Foot - left 3 Viewson IMPRESSION: 1. Mild interphalangeal osteoarthritis. 2. Calcaneal spurring. RADIOLOGY EXAMINATION: XR FOOT LEFT 3+ VIEWS, 05/10/2025 11:45 AM EDT INDICATION: Fourth toe wound with drainage. COMPARISON: 06/14/2023. 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 No evidence for periostitis or bony erosion. No fracture or significant malalignment. No soft tissue gas. Moderate spurring of the calcaneus. RADIOLOGY Chely Paz MD - 05/10/2025 EXAMINATION: XR FOOT LEFT 3+ VIEWS, 05/10/2025 11:45 AM EDT INDICATION: Fourth toe wound with drainage. COMPARISON: 06/14/2023. 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 No evidence for periostitis or bony erosion. No fracture or significant malalignment. No soft tissue gas. Moderate spurring of the calcaneus. IMPRESSION IMPRESSION: 1. Mild interphalangeal osteoarthritis. 2. Calcaneal spurring. [facility] Radiology Study observation (narrative) [facility] XR Foot - left 3 ViewsOrdere d By: Chely Paz on 05-10-2025 [facility] XR Lumbar spine Views W righ t bending and W left bendingon 05-07-2025 IMPRESSION: No acute osseous abnormality detected. No significant interval change. Degenerative changes of the lumbar spine that appear grossly unchanged in the interval. No instability detected on flexion or extension Diffuse osteopenia Stable postsurgical changes of the SI joints Calcified atherosclerotic disease RADIOLOGY EXAM TYPE: XR SPINE LUMBAR W/ BENDING 6+ VIEWS EXAM DATE AND TIME: 05/06/2025 7:30 PM EDT INDICATION: 65 years old Female with back pain COMPARISON: Lumbar spine study from 08/15/2024 TECHNIQUE: 7 views of the lumbar spine including flexion and extension views. FINDINGS: There are 5 lumbar vertebral segments. The visualized osseous structures are osteopenic. There is no acute osseous lesion or fracture. There is grade 1 retrolisthesis of L2 on L3 and grade 1 anterolisthesis of L5 on S1. No instability is detected on flexion or extension. These changes are stable in the interval since the prior study There is a normal lumbar lordosis There is no abnormal curvature. There is a stable mild compression fracture at L2. There is mild loss of intervertebral disc height throughout the entire lumbar spine. This is most pronounced at the L4-L5 level where there are mild degenerative sclerotic endplate changes and small osteophytes. There are degenerative facet joint changes are most pronounced in the lower lumbar spine. There has been surgical fusion of the bilateral SI joints. The fusion hardware appears intact and unchanged. The visualized soft tissues are unremarkable. There is calcified atherosclerotic change of the abdominal aorta RADIOLOGY Sedrick Kwon MD - 05/07/2025 EXAM TYPE: XR SPINE LUMBAR W/ BENDING 6+ VIEWS EXAM DATE AND TIME: 05/06/2025 7:30 PM EDT INDICATION: 65 years old Female with back pain COMPARISON: Lumbar spine study from 08/15/2024 TECHNIQUE: 7 views of the lumbar spine including flexion and extension views. FINDINGS: There are 5 lumbar vertebral segments. The visualized osseous structures are osteopenic. There is no acute osseous lesion or fracture. There is grade 1 retrolisthesis of L2 on L3 and grade 1 anterolisthesis of L5 on S1. No instability is detected on flexion or extension. These changes are stable in the interval since the prior study There is a normal lumbar lordosis There is no abnormal curvature. There is a stable mild compression fracture at L2. There is mild loss of intervertebral disc height throughout the entire lumbar spine. This is most pronounced at the L4-L5 level where there are mild degenerative sclerotic endplate changes and small osteophytes. There are degenerative facet joint changes are most pronounced in the lower lumbar spine. There has been surgical fusion of the bilateral SI joints. The fusion hardware appears intact and unchanged. The visualized soft tissues are unremarkable. There is calcified atherosclerotic change of the abdominal aorta IMPRESSION IMPRESSION: No acute osseous abnormality detected. No significant interval change. Degenerative changes of the lumbar spine that appear grossly unchanged in the interval. No instability detected on flexion or extension Diffuse osteopenia Stable postsurgical changes of the SI joints Calcified atherosclerotic disease [facility] XR Lumbar spine Views W righ t bending and W left bendingOrdered By: Sedrick Kwon on 05-07-2025 [employer] Work Phone: XR SPINE LUMBAR W/ BENDING 6 + VIEWSon 05-07-2025 XR SPINE LUMBAR W/ BENDING 6+ VIEWS EXAM TYPE: XR SPINE LUMBAR W/ BENDING 6+ VIEWS EXAM DATE AND TIME: 05/06/2025 7:30 PM EDT INDICATION: 65 years old Female with back pain COMPARISON: Lumbar spine study from 08/15/2024 TECHNIQUE: 7 views of the lumbar spine including flexion and extension views. FINDINGS: There are 5 lumbar vertebral segments. The visualized osseous structures are osteopenic. There is no acute osseous lesion or fracture. There is grade 1 retrolisthesis of L2 on L3 and grade 1 anterolisthesis of L5 on S1. No instability is detected on flexion or extension. These changes are stable in the interval since the prior study There is a normal lumbar lordosis There is no abnormal curvature. There is a stable mild compression fracture at L2. There is mild loss of intervertebral disc height throughout the entire lumbar spine. This is most pronounced at the L4-L5 level where there are mild degenerative sclerotic endplate changes and small osteophytes. There are degenerative facet joint changes are most pronounced in the lower lumbar spine. There has been surgical fusion of the bilateral SI joints. The fusion hardware appears intact and unchanged. The visualized soft tissues are unremarkable. There is calcified atherosclerotic change of the abdominal aorta IMPRESSION: No acute osseous abnormality detected. No significant interval change. Degenerative changes of the lumbar spine that appear grossly unchanged in the interval. No instability detected on flexion or extension Diffuse osteopenia Stable postsurgical changes of the SI joints Calcified atherosclerotic disease Normal [facility] XR Lumbar spine Views W righ t bending and W left bendingon 05-06-2025 Radiology Study observation (narrative) [facility] ECG 12-LEADon 04-05-2025 ECG 12-LEAD Ventricular Rate 77 Atrial Rate 77 P-R Interval 196 QRS Duration 92 Q-T Interval 406 QTC Calculation(Bazett) 459 P Lansing 68 R Lansing 44 T [place]ing 60 QRS Count 13 Q Onset 226 P Onset 128 P Offset 173 T Offset 429 QTC Fredericia 441 Diagnosis Sinus rhythm with occasional Premature ventricular complexes Otherwise normal ECG When compared with ECG of 19-DEC-2019 18:09, Previous ECG has undetermined rhythm, needs review See ED provider note for full interpretation and clinical correlation Confirmed by Cate Najera ([id number]) on 04/05/2025 11:32:58 AM Normal [facility] Ethanolon 04-05-2025 Ethanol [Mass/Vol] 71 mg/dL High NINF - 10 mg/dL [facility] Comment on above: For medical use only . Ethanol [Mass/Vol] 71 mg/dL High <=10 [facility] Comment on above: Result Comment: For medical use only. Performed By: #### 5 [id number] #### MULLEN LAWRENCE ([id number]) [facility] ([facility]) [address] [place] [address] Ethanol [Mass/Vol]on 025 Interpretation and review of laboratory results Abnormal [facility] Tropinin I.cardiac panel Hig h sensitivity methodon 04-05-2025 Interpretation and review of laboratory results Abnormal [facility] Less than 99th percentile of normal range cutoff- Female and children under 18 years old <14 ng/L; Male <21 ng/L: Negative Repeat testing should be performed if clinically indicated. Female and children under 18 years old 14-50 ng/L; Male 21-50 ng/L: Consistent with possible cardiac damage and possible increased clinical risk. Serial measurements may help to assess extent of myocardial damage. >50 ng/L: Consistent with cardiac damage, increased clinical risk and myocardial infarction. Serial measurements may help assess extent of myocardial damage. NOTE: Children less than 1 year old may have higher baseline troponin levels and results should be interpreted in conjunction with the overall clinical context. NOTE: Troponin I testing is performed using a different testing methodology at [facility] than at [facility] Direct result comparisons should only be made within the same method. [facility] Troponin I, High Sensitivity , Initialon 04-05-2025 Tropinin I.cardiac panel High sensitivity method 19 ng/L High 0 - 13 ng/L [facility] Troponin I.cardiac panelon 0 04-05-2025 Tropinin I.cardiac panel High sensitivity method 20 ng/L High 0-13 [facility] Comment on above: Order Comment: Less than 99th percentile of normal range cutoff- Female and children under 18 years old <14 ng/L; Male <21 ng/L: Negative Repeat testing should be performed if clinically indicated. Female and children under 18 years old 14-50 ng/L; Male 21-50 ng/L: Consistent with possible cardiac damage and possible increased clinical risk. Serial measurements may help to assess extent of myocardial damage. >50 ng/L: Consistent with cardiac damage, increased clinical risk and myocardial infarction. Serial measurements may help assess extent of myocardial damage. NOTE: Children less than 1 year old may have higher baseline troponin levels and results should be interpreted in conjunction with the overall clinical context. NOTE: Troponin I testing is performed using a different testing methodology at [facility] than at [facility]. Direct result comparisons should only be made within the same method. Performed By: #### 8 9577-1 #### MULLEN LAWRENCE ([id number]) [facility] ([facility]) [address] [place] [address] Tropinin I.cardiac panel High sensitivity method 19 ng/L High 0-13 [facility] Comment on above: Order Comment: Less than 99th percentile of normal range cutoff- Female and children under 18 years old <14 ng/L; Male <21 ng/L: Negative Repeat testing should be performed if clinically indicated. Female and children under 18 years old 14-50 ng/L; Male 21-50 ng/L: Consistent with possible cardiac damage and possible increased clinical risk. Serial measurements may help to assess extent of myocardial damage. >50 ng/L: Consistent with cardiac damage, increased clinical risk and myocardial infarction. Serial measurements may help assess extent of myocardial damage. NOTE: Children less than 1 year old may have higher baseline troponin levels and results should be interpreted in conjunction with the overall clinical context. NOTE: Troponin I testing is performed using a different testing methodology at [facility] than at other [facility]. Direct result comparisons should only be made within the same method. Performed By: #### 8 9577-1 #### PAZ BRAVO ([id number]) [facility] ([facility]) [facility] [place] [address] Acetaminophenon 04-04-2025 Acetaminophen [Mass/Vol] ug/mL Normal 10.0-30.0 [facility] Comment on above: Performed By: #### 3 298-7 #### PAZ BRAVO ([id number]) [facility] ([facility]) [facility] [place] [address] Acetaminophen levelon 2024 Acetaminophen [Mass/Vol] ug/mL 10.0 - 30.0 ug/mL [facility] CBC W Auto Differential pane l (Bld)on 04-04-2025 Basophils (Bld) [#/Vol] 0.08 10*3/uL [facility] Basophils/100 WBC (Bld) 1.2 % 0.0 - 2.0 % [facility] Eosinophils (Bld) [#/Vol] 0.05 10*3/uL [facility] Eosinophils/100 WBC (Bld) 0.7 % 0.0 - 6.0 % [facility] Erythrocyte distribution width (RBC) [Ratio] 17.4 % High 11.5 - 14.5 % [facility] Hematocrit (Bld) [Volume fraction] 42.2 % 36.0 - 46.0 % [facility] Hemoglobin (Bld) [Mass/Vol] 14.2 g/dL 12.0 - 16.0 g/dL [facility] Immature granulocytes (Bld) [#/Vol] 0.01 10*3/uL [facility] Immature granulocytes/100 WBC (Bld) 0.1 % 0.0 - 0.9 % [facility] Comment on above: Immature Granulocyte Count (IG) includes promyelocytes, myelocytes and metamyelocytes but does not include bands. Percent differential counts (%) should be interpreted in the context of the absolute cell counts (cells/UL). Interpretation and review of laboratory results Abnormal [facility] Lymphocytes (Bld) [#/Vol] 2.88 10*3/uL [facility] Lymphocytes/100 WBC (Bld) 42 % 13.0 - 44.0 % [facility] MCH (RBC) [Entitic mass] 30.8 pg 26.0 - 34.0 pg [facility] MCHC (RBC) [Mass/Vol] 33.6 g/dL 32.0 - 36.0 g/dL [facility] MCV (RBC) [Entitic vol] 92 fL 80 - 100 fL [facility] Monocytes (Bld) [#/Vol] 0.36 10*3/uL [facility] Monocytes/100 WBC (Bld) 5.2 % 2.0 - 10.0 % [facility] Neutrophils (Bld) [#/Vol] 3.48 10*3/uL [facility] Comment on above: Percent differential counts (%) should be interpreted in the context of the absolute cell counts (cells/uL). Neutrophils/100 WBC (Bld) 50.8 % 40.0 - 80.0 % [facility] Nucleated RBC/100 WBC (Bld) [Ratio] 0 % [facility] Platelets (Bld) [#/Vol] 297 10*3/uL [facility] RBC (Bld) [#/Vol] 4.61 10*6/uL [facility] WBC (Bld) [#/Vol] 6.9 10*3/uL [facility] Basophils (Bld) [#/Vol] 0.08 x10*3/uL Normal 0.00-0.10 [facility] Comment on above: Performed By: #### 5 7021-8 #### PAZ BRAVO ([id number]) [facility] ([facility]) [address] [place] [address] Basophils/100 WBC (Bld) 1.2 % Normal 0.0-2.0 [facility] Comment on above: Performed By: #### 5 7021-8 #### PAZ BRAVO ([id number]) [facility] ([facility]) [address] [place] [address] 31798 Eosinophils (Bld) [#/Vol] 0.05 x10*3/uL Normal 0.00-0.70 [facility] Comment on above: Performed By: #### 5 7021-8 #### PAZ BRAVO ([id number]) [facility] ([facility]) [address] [place] [address] 97763 Eosinophils/100 WBC (Bld) 0.7 % Normal 0.0-6.0 [facility] Comment on above: Performed By: #### 5 7021-8 #### PAZ BRAVO ([id number]) [facility] ([facility]) [address] [place] [address] 52060 Erythrocyte distribution width (RBC) [Ratio] 17.4 % High 11.5-14.5 [facility] Comment on above: Performed By: #### 5 7021-8 #### PAZ BRAVO ([id number]) [facility] ([facility]) [address] [place] [address] 75501 Hematocrit (Bld) [Volume fraction] 42.2 % Normal 36.0-46.0 [facility] Comment on above: Performed By: #### 5 7021-8 #### PAZ BRAVO ([id number]) [facility] ([facility]) [address] [place] [address] 37542 Hemoglobin (Bld) [Mass/Vol] 14.2 g/dL Normal 12.0-16.0 [facility] Comment on above: Performed By: #### 5 7021-8 #### PAZ BRAVO ([id number]) [facility] ([facility]) [address] [place] [address] 09592 Immature granulocytes (Bld) [#/Vol] 0.01 x10*3/uL Normal 0.00-0.70 [facility] Comment on above: Performed By: #### 5 7021-8 #### PAZ BRAVO ([id number]) [facility] ([facility]) [address] [place] [address] 51761 Immature granulocytes/100 WBC (Bld) 0.1 % Normal 0.0-0.9 [facility] Comment on above: Result Comment: Corrine ture Granulocyte Count (IG) includes promyelocytes, myelocytes and metamyelocytes but does not include bands. Percent differential counts (%) should be interpreted in the context of the absolute cell counts (cells/UL). Performed By: #### 5 7021-8 #### PAZ BRAVO ([id number]) [facility] ([facility]) [address] [place] [address] 06377 Lymphocytes (Bld) [#/Vol] 2.88 x10*3/uL Normal 1.20-4.80 [facility] Comment on above: Performed By: #### 5 7021-8 #### PAZ BRAVO ([id number]) [facility] ([facility]) [address] [place] [address] 69072 Lymphocytes/100 WBC (Bld) 42.0 % Normal 13.0-44.0 [facility] Comment on above: Performed By: #### 5 7021-8 #### PAZ BRAVO ([id number]) [facility] ([facility]) [address] [place] [address] 54512 MCH (RBC) [Entitic mass] 30.8 pg Normal 26.0-34.0 [facility] Comment on above: Performed By: #### 5 7021-8 #### PAZ BRAVO ([id number]) [facility] ([facility]) [address] [place] [address] 17007 MCHC (RBC) [Mass/Vol] 33.6 g/dL Normal 32.0-36.0 [facility] Comment on above: Performed By: #### 5 7021-8 #### PAZ BRAVO ([id number]) [facility] ([facility]) [address] [place] [address] 05733 MCV (RBC) [Entitic vol] 92 fL Normal 80-100 [facility] Comment on above: Performed By: #### 5 7021-8 #### PAZ BRAVO ([id number]) [facility] ([facility]) [address] [place] [address] 31169 Monocytes (Bld) [#/Vol] 0.36 x10*3/uL Normal 0.10-1.00 [facility] Comment on above: Performed By: #### 5 7021-8 #### PAZ BRAVO ([id number]) [facility] ([facility]) [address] [place] [address] 06319 Monocytes/100 WBC (Bld) 5.2 % Normal 2.0-10.0 [facility] Comment on above: Performed By: #### 5 7021-8 #### PAZ BRAVO ([id number]) [facility] ([facility]) [address] [place] [address] 51347 Neutrophils (Bld) [#/Vol] 3.48 x10*3/uL Normal 1.20-7.70 [facility] Comment on above: Result Comment: Perc ent differential counts (%) should be interpreted in the context of the absolute cell counts (cells/uL). Performed By: #### 5 7021-8 #### PAZ BRAVO ([id number]) [facility] ([facility]) [address] [place] [address] 20205 Neutrophils/100 WBC (Bld) 50.8 % Normal 40.0-80.0 [facility] Comment on above: Performed By: #### 5 7021-8 #### PAZ BRAVO ([id number]) [facility] ([facility]) [address] [place] [address] 14484 Nucleated RBC/100 WBC (Bld) [Ratio] 0.0 /100 WBCs Normal 0.0-0.0 [facility] Comment on above: Performed By: #### 5 7021-8 #### PAZ BRAVO ([id number]) [facility] ([facility]) [address] [place] [address] 76904 Platelets (Bld) [#/Vol] 297 x10*3/uL Normal 150-450 [facility] Comment on above: Performed By: #### 5 7021-8 #### PAZ BRAVO ([id number]) [facility] ([facility]) [address] [place] [address] 65281 RBC (Bld) [#/Vol] 4.61 x10*6/uL Normal 4.00-5.20 [facility] Comment on above: Performed By: #### 5 7021-8 #### PAZ BRAVO ([id number]) [facility] ([facility]) [address] [place] [address] 49620 WBC (Bld) [#/Vol] 6.9 x10*3/uL Normal 4.4-11.3 [facility] Comment on above: Performed By: #### 5 7021-8 #### PAZ BRAVO ([id number]) [facility] ([facility]) [address] [place] [address] 84732 Comprehensive metabolic 2000 panelon 04-04-2025 Albumin BCP dye [Mass/Vol] 4.5 g/dL 3.4 - 5.0 g/dL [facility] ALP [Catalytic activity/Vol] 72 U/L 33 - 136 U/L [facility] ALT With P-5'-P [Catalytic activity/Vol] 77 U/L High 7 - 45 U/L [facility] Comment on above: Patients treated wit h Sulfasalazine may generate falsely decreased results for ALT. Anion gap [Moles/Vol] 18 mmol/L 10 - 20 mmol/L [facility] AST With P-5'-P [Catalytic activity/Vol] 111 U/L High 9 - 39 U/L [facility] Bilirubin [Mass/Vol] 0.4 mg/dL 0.0 - 1 .2 mg/dL [facility] Calcium [Mass/Vol] 9.4 mg/dL 8.6 - 10. 3 mg/dL [facility] Chloride [Moles/Vol] 97 mmol/L Low 98 - 10 7 mmol/L [facility] CO2 [Moles/Vol] 25 mmol/L 21 - 32 mmol/L [facility] Creatinine [Mass/Vol] 0.65 mg/dL 0.50 - 1.05 mg/dL [facility] eGFR - PINF [facility] Comment on above: Calculations of nay mated GFR are performed using the 2020 CKD-EPI Study Refit equation without the race variable for the IDMS-Traceable creatinine methods. https://jasn.asnjournals.org/content/early//ASN.1297861 988 Glucose [Mass/Vol] 140 mg/dL High 74 - 99 mg/dL [facility] Potassium [Moles/Vol] 3.6 mmol/L 3.5 - 5.3 mmol/L [facility] Protein [Mass/Vol] 7.3 g/dL 6.4 - 8.2 g/dL [facility] Sodium [Moles/Vol] 136 mmol/L 136 - 145 mmol/L [facility] Urea nitrogen [Mass/Vol] 11 mg/dL 6 - 23 mg/dL [facility] Albumin BCP dye [Mass/Vol] 4.5 g/dL Normal 3.4-5.0 [facility] Comment on above: Performed By: #### 2 4323-8 #### PAZ BRAVO ([id number]) [facility] ([facility]) [address] [place] [address] 52363 ALP [Catalytic activity/Vol] 72 U/L Normal 33-136 [facility] Comment on above: Performed By: #### 2 4323-8 #### PAZ BRAVO ([id number]) [facility] ([facility]) [facility] [place] [address] ALT With P-5'-P [Catalytic activity/Vol] 77 U/L High 7-45 [facility] Comment on above: Result Comment: Jessenia ents treated with Sulfasalazine may generate falsely decreased results for ALT. Performed By: #### 2 4323-8 #### PAZ BRAVO ([id number]) [facility] ([facility]) [facility] [place] [address] Anion gap [Moles/Vol] 18 mmol/L Normal 10-20 [facility] Comment on above: Performed By: #### 2 4323-8 #### PAZ BRAVO ([id number]) [facility] ([facility]) [address] [place] [address]30 AST With P-5'-P [Catalytic activity/Vol] 111 U/L High 9-39 [facility] Comment on above: Performed By: #### 2 4323-8 #### PAZ BRAVO ([id number]) [facility] ([facility]) [address] [place] [address] 76855 Bilirubin [Mass/Vol] 0.4 mg/dL Normal 0.0-1.2 [facility] Comment on above: Performed By: #### 2 4323-8 #### PAZ BRAVO ([id number]) [facility] ([facility]) [address] [place] [address] 12143 Calcium [Mass/Vol] 9.4 mg/dL Normal 8.6-10.3 [facility] Comment on above: Performed By: #### 2 4323-8 #### PAZ BRAVO ([id number]) [facility] ([facility]) [address] [place] [address] 68356 Chloride [Moles/Vol] 97 mmol/L Low 98-107 [facility] Comment on above: Performed By: #### 2 4323-8 #### PAZ BRAVO ([id number]) [facility] ([facility]) [address] [place] [address] 38711 CO2 [Moles/Vol] 25 mmol/L Normal 21-32 [facility] Comment on above: Performed By: #### 2 4323-8 #### PAZ BRAVO ([id number]) [facility] ([facility]) [address] [place] [address] 97004 Creatinine [Mass/Vol] 0.65 mg/dL Normal 0.50-1.05 [facility] Comment on above: Performed By: #### 2 4323-8 #### PAZ BRAVO ([id number]) [facility] ([facility]) [address] [place] [address] 21344 GFR/1.73 sq M.predicted MDRD (S/P/Bld) [Vol rate/Area] mL/min/{1.73_m2} Normal >60 [facility] Comment on above: Result Comment: Calc ulations of estimated GFR are performed using the 2020 CKD-EPI Study Refit equation without the race variable for the IDMS-Traceable creatinine methods. https://jasn.asnjournals.org/content/early//ASN.3468175 988 Performed By: #### 2 4323-8 #### PAZ BRAVO ([id number]) [facility] ([facility]) [address] [place] [address] 08295 Glucose [Mass/Vol] 140 mg/dL High 74-99 [facility] Comment on above: Performed By: #### 2 4323-8 #### PAZ BRAVO ([id number]) [facility] ([facility]) [address] [place] [address] 70751 Potassium [Moles/Vol] 3.6 mmol/L Normal 3.5-5.3 [facility] Comment on above: Performed By: #### 2 4323-8 #### PAZ BRAVO ([id number]) [facility] ([facility]) [address] [place] [address] 10833 Protein [Mass/Vol] 7.3 g/dL Normal 6.4-8.2 [facility] Comment on above: Performed By: #### 2 4323-8 #### PAZ BRAVO ([id number]) [facility] ([facility]) [address] [place] [address] 26879 Sodium [Moles/Vol] 136 mmol/L Normal 136-145 [facility] Comment on above: Performed By: #### 2 4323-8 #### PAZ BRAVO ([id number]) [facility] ([facility]) [facility] [place] [phone] Urea nitrogen [Mass/Vol] 11 mg/dL Normal 6- [facility] Comment on above: Performed By: #### 2 4323-8 #### PAZ BRAVO ([id number]) [facility] ([facility]) [facility] [place] [address] DRUG SCREEN,URINEon 04-04-20 25 Amphetamines Screen Ql (U) Negative Normal Presumptive Negative [facility] Comment on above: Order Comment: Drug screen results are presumptive and should not be used to assess compliance with prescribed medication. Contact the performing [facility] laboratory to add-on definitive confirmatory testing if clinically indicated. Toxicology screening results are reported qualitatively. The concentration must ???be greater than or equal to the cutoff to be reported as positive. The concentration at which the screening test can detect an individual drug or metabolite varies. The absence of expected drug(s) and/or drug metabolite(s) may indicate non-compliance, inappropriate timing of specimen collection relative to drug administration, poor drug absorption, diluted/adulterated urine, or limitations of testing. For medical purposes only; not valid for forensic use. Interpretive questions should be directed to the laboratory medical directors. Result Comment: CUTO FF LEVEL: 500 NG/ML Cross-reactivity has been reported with high concentrations of the following drugs: buproprion, chloroquine, chlorpromazine, ephedrine, mephentermine, fenfluramine, phentermine, phenylpropanolamine, pseudoephedrine, and propranolol. Performed By: #### D RUG3 #### PAZ BRAVO ([id number]) [facility] ([facility]) [facility] [place] [phone] Barbiturates Screen Ql (U) Negative Normal Presumptive Negative [facility] Comment on above: Order Comment: Drug screen results are presumptive and should not be used to assess compliance with prescribed medication. Contact the performing [facility] laboratory to add-on definitive confirmatory testing if clinically indicated. Toxicology screening results are reported qualitatively. The concentration must ???be greater than or equal to the cutoff to be reported as positive. The concentration at which the screening test can detect an individual drug or metabolite varies. The absence of expected drug(s) and/or drug metabolite(s) may indicate non-compliance, inappropriate timing of specimen collection relative to drug administration, poor drug absorption, diluted/adulterated urine, or limitations of testing. For medical purposes only; not valid for forensic use. Interpretive questions should be directed to the laboratory medical directors. Result Comment: CUTO FF LEVEL: 200 NG/ML Performed By: #### D RUG3 #### PAZ BRAVO ([id number]) [facility] ([facility]) [address] [place] [address] Benzodiazepines Ql (U) Positive Abnormal Presumptive Negative [facility] Comment on above: Order Comment: Drug screen results are presumptive and should not be used to assess compliance with prescribed medication. Contact the performing [facility] laboratory to add-on definitive confirmatory testing if clinically indicated. Toxicology screening results are reported qualitatively. The concentration must ???be greater than or equal to the cutoff to be reported as positive. The concentration at which the screening test can detect an individual drug or metabolite varies. The absence of expected drug(s) and/or drug metabolite(s) may indicate non-compliance, inappropriate timing of specimen collection relative to drug administration, poor drug absorption, diluted/adulterated urine, or limitations of testing. For medical purposes only; not valid for forensic use. Interpretive questions should be directed to the laboratory medical directors. Result Comment: CUTO FF LEVEL: 200 NG/ML Performed By: #### D RUG3 #### PAZ BRAVO ([id number]) [facility] ([facility]) [facility] [place] [phone] Benzoylecgonine Screen Ql (U) Negative Normal Presumptive Negative [facility] Comment on above: Order Comment: Drug screen results are presumptive and should not be used to assess compliance with prescribed medication. Contact the performing [facility] laboratory to add-on definitive confirmatory testing if clinically indicated. Toxicology screening results are reported qualitatively. The concentration must ???be greater than or equal to the cutoff to be reported as positive. The concentration at which the screening test can detect an individual drug or metabolite varies. The absence of expected drug(s) and/or drug metabolite(s) may indicate non-compliance, inappropriate timing of specimen collection relative to drug administration, poor drug absorption, diluted/adulterated urine, or limitations of testing. For medical purposes only; not valid for forensic use. Interpretive questions should be directed to the laboratory medical directors. Result Comment: CUTO FF LEVEL: 150 NG/ML Performed By: #### D RUG3 #### PAZ BRAVO ([id number]) [facility] ([facility]) [address] [place] [address] Cannabinoids Screen Ql (U) Positive Abnormal Presumptive Negative [facility] Comment on above: Order Comment: Drug screen results are presumptive and should not be used to assess compliance with prescribed medication. Contact the performing [facility] laboratory to add-on definitive confirmatory testing if clinically indicated. Toxicology screening results are reported qualitatively. The concentration must ???be greater than or equal to the cutoff to be reported as positive. The concentration at which the screening test can detect an individual drug or metabolite varies. The absence of expected drug(s) and/or drug metabolite(s) may indicate non-compliance, inappropriate timing of specimen collection relative to drug administration, poor drug absorption, diluted/adulterated urine, or limitations of testing. For medical purposes only; not valid for forensic use. Interpretive questions should be directed to the laboratory medical directors. Result Comment: CUTO FF LEVEL: 50 NG/ML Performed By: #### D RUG3 #### PAZ BRAVO ([id number]) [facility] ([facility]) [address] [place] [address] fentaNYL+Norfentanyl Screen Ql (U) Negative Normal Presumptive Negative [facility] Comment on above: Order Comment: Drug screen results are presumptive and should not be used to assess compliance with prescribed medication. Contact the performing [facility] laboratory to add-on definitive confirmatory testing if clinically indicated. Toxicology screening results are reported qualitatively. The concentration must ???be greater than or equal to the cutoff to be reported as positive. The concentration at which the screening test can detect an individual drug or metabolite varies. The absence of expected drug(s) and/or drug metabolite(s) may indicate non-compliance, inappropriate timing of specimen collection relative to drug administration, poor drug absorption, diluted/adulterated urine, or limitations of testing. For medical purposes only; not valid for forensic use. Interpretive questions should be directed to the laboratory medical directors. Result Comment: CUTO FF LEVEL: 5 NG/ML Performed By: #### D RUG3 #### PAZ BRAVO ([id number]) [facility] ([facility]) [facility] [place] [address] Methadone Screen Ql (U) Negative Normal Presumptive Negative [facility] Comment on above: Order Comment: Drug screen results are presumptive and should not be used to assess compliance with prescribed medication. Contact the performing [facility] laboratory to add-on definitive confirmatory testing if clinically indicated. Toxicology screening results are reported qualitatively. The concentration must ???be greater than or equal to the cutoff to be reported as positive. The concentration at which the screening test can detect an individual drug or metabolite varies. The absence of expected drug(s) and/or drug metabolite(s) may indicate non-compliance, inappropriate timing of specimen collection relative to drug administration, poor drug absorption, diluted/adulterated urine, or limitations of testing. For medical purposes only; not valid for forensic use. Interpretive questions should be directed to the laboratory medical directors. Result Comment: CUTO FF LEVEL: 150 NG/ML The metabolite K-xjbdp-ahcqljeqewswfg (LAAM) is not detected by this method in concentrations that would be found in the urine of patients on LAAM therapy. Performed By: #### D RUG3 #### PAZ BRAVO ([id number]) [facility] ([facility]) [address] [place] [address] Opiates Screen Ql (U) Negative Normal Presumptive Negative [facility] Comment on above: Order Comment: Drug screen results are presumptive and should not be used to assess compliance with prescribed medication. Contact the performing [facility] laboratory to add-on definitive confirmatory testing if clinically indicated. Toxicology screening results are reported qualitatively. The concentration must ???be greater than or equal to the cutoff to be reported as positive. The concentration at which the screening test can detect an individual drug or metabolite varies. The absence of expected drug(s) and/or drug metabolite(s) may indicate non-compliance, inappropriate timing of specimen collection relative to drug administration, poor drug absorption, diluted/adulterated urine, or limitations of testing. For medical purposes only; not valid for forensic use. Interpretive questions should be directed to the laboratory medical directors. Result Comment: CUTO FF LEVEL: 300 NG/ML The opiate screen does not detect fentanyl, meperidine, or tramadol. Oxycodone is not consistently detected (refer to Oxycodone Screen, Urine result). Performed By: #### Jone RUG3 #### PAZ BRAVO ([id number]) [facility] ([facility]) [facility] [place] [address] oxyCODONE+oxyMORphon e Screen Ql (U) Negative Normal Presumptive Negative [facility] Comment on above: Order Comment: Drug screen results are presumptive and should not be used to assess compliance with prescribed medication. Contact the performing [facility] laboratory to add-on definitive confirmatory testing if clinically indicated. Toxicology screening results are reported qualitatively. The concentration must ???be greater than or equal to the cutoff to be reported as positive. The concentration at which the screening test can detect an individual drug or metabolite varies. The absence of expected drug(s) and/or drug metabolite(s) may indicate non-compliance, inappropriate timing of specimen collection relative to drug administration, poor drug absorption, diluted/adulterated urine, or limitations of testing. For medical purposes only; not valid for forensic use. Interpretive questions should be directed to the laboratory medical directors. Result Comment: CUTO FF LEVEL: 100 NG/ML This test will accurately detect both oxycodone and oxymorphone. Performed By: #### Jone DICKEY3 #### PAZ BRAVO ([id number]) [facility] ([facility]) [address] [place], [place] [id number] Phencyclidine Ql (U) Negative Normal Presump tive Negative [facility] Comment on above: Order Comment: Drug screen results are presumptive and should not be used to assess compliance with prescribed medication. Contact the performing [facility] laboratory to add-on definitive confirmatory testing if clinically indicated. Toxicology screening results are reported qualitatively. The concentration must ???be greater than or equal to the cutoff to be reported as positive. The concentration at which the screening test can detect an individual drug or metabolite varies. The absence of expected drug(s) and/or drug metabolite(s) may indicate non-compliance, inappropriate timing of specimen collection relative to drug administration, poor drug absorption, diluted/adulterated urine, or limitations of testing. For medical purposes only; not valid for forensic use. Interpretive questions should be directed to the laboratory medical directors. Result Comment: CUTO FF LEVEL: 25 NG/ML Cross-reactivity has been reported with dextromethorphan. Performed By: #### D RUG3 #### MULLEN LAWRENCE ([id number]) [facility] ([facility]) [address] [place] [address] Drug Screen, Urineon 025 Amphetamines Screen Ql (U) Negative Presumptive Negative [facility] Comment on above: CUTOFF LEVEL: 500 NG /ML Cross-reactivity has been reported with high concentrations of the following drugs: buproprion, chloroquine, chlorpromazine, ephedrine, mephentermine, fenfluramine, phentermine, phenylpropanolamine, pseudoephedrine, and propranolol. Barbiturates Screen Ql (U) Negative Presumptive Negative [facility] Comment on above: CUTOFF LEVEL: 200 NG /ML Benzodiazepines Ql (U) Positive Abnormal Presumptive Negative [facility] Comment on above: CUTOFF LEVEL: 200 NG /ML Benzoylecgonine Screen Ql (U) Negative Presumptive Negative [facility] Comment on above: CUTOFF LEVEL: 150 NG /ML Cannabinoids Screen Ql (U) Positive Abnormal Presumptive Negative [facility] Comment on above: CUTOFF LEVEL: 50 NG/ ML fentaNYL+Norfentanyl Screen Ql (U) Negative Presumptive Negative [facility] Comment on above: CUTOFF LEVEL: 5 NG/M L Interpretation and review of laboratory results Abnormal [facility] Methadone Screen Ql (U) Negative Presumptive Negative [facility] Comment on above: CUTOFF LEVEL: 150 NG /ML The metabolite V-gdfoj-oznngadyrtrdrf (LAAM) is not detected by this method in concentrations that would be found in the urine of patients on LAAM therapy. Opiates Screen Ql (U) Negative Presumptive Negative [facility] Comment on above: CUTOFF LEVEL: 300 NG /ML The opiate screen does not detect fentanyl, meperidine, or tramadol. Oxycodone is not consistently detected (refer to Oxycodone Screen, Urine result). oxyCODONE+oxyMORphon e Screen Ql (U) Negative Presumptive Negative [facility] Comment on above: CUTOFF LEVEL: 100 NG /ML This test will accurately detect both oxycodone and oxymorphone. Phencyclidine Ql (U) Negative Presump tive Negative [facility] Comment on above: CUTOFF LEVEL: 25 NG/ ML Cross-reactivity has been reported with dextromethorphan. Drug screen results are presumptive and should not be used to assess compliance with prescribed medication. Contact the performing [facility] laboratory to add-on definitive confirmatory testing if clinically indicated. Toxicology screening results are reported qualitatively. The concentration must be greater than or equal to the cutoff to be reported as positive. The concentration at which the screening test can detect an individual drug or metabolite varies. The absence of expected drug(s) and/or drug metabolite(s) may indicate non-compliance, inappropriate timing of specimen collection relative to drug administration, poor drug absorption, diluted/adulterated urine, or limitations of testing. For medical purposes only; not valid for forensic use. Interpretive questions should be directed to the laboratory medical directors. [facility] Ethanolon 04-04-2025 Ethanol [Mass/Vol] 149 mg/dL High NINF - 10 mg/dL [facility] Comment on above: For medical use only . Ethanol [Mass/Vol] 149 mg/dL High <=10 [facility] Comment on above: Result Comment: For medical use only. Performed By: #### 5 [id number] #### PAZ BRAVO ([id number]) [facility] ([facility]) [address] [place] [address] No Panel Informationon 04-04 Interpretation and review of laboratory results Abnormal [facility] Interpretation and review of laboratory results Normal [facility] Salicylate levelon Salicylates [Mass/Vol] mg/dL 4 - 20 mg/dL [facility] Salicylateson 04-04-2025 Salicylates [Mass/Vol] mg/dL Normal 4-20 [facility] Comment on above: Performed By: #### 4 024-6 #### PAZ BRAVO ([id number]) [facility] ([facility]) [address] [place] [address] MAMMO SCREENING WITH ALEXANDER BI LATERALon 03-08-2025 MAMMO SCREENING WITH ALXEANDER BILATERAL EXAM: MAMMO SCREENING WITH ALEXANDER BILATERAL HISTORY: Encounter for screening mammogram. COMPARISON: 01/23/2024, 01/07/2023, 01/06/2022, 01/05/2021, 12/04/2019, and previously TECHNIQUE: Bilateral full-field digital MLO and CC mammographic views were obtained with 3-D tomosynthesis. FINDINGS: There are scattered areas of fibroglandular density. No mass, area of architectural distortion, or cluster of suspicious microcalcifications is seen. IMPRESSION: No evidence of malignant breast disease. Annual screening mammography is recommended. BI-RADS Category 1. Negative. Normal [facility] BONE DENSITY AXIAL (HIP, PEL VIS, SPINE)on 03-06-2025 BONE DENSITY AXIAL (HIP, PELVIS, SPINE) EXAMINATION: BONE DENSITY AXIAL (HIP, PELVIS, SPINE), 03/06/2025 2:22 PM EDT HISTORY: Post menopausal female, screening for osteoporosis. COMPARISON: 03/01/2023. TECHNIQUE: Dual-energy X-ray absorptiometry (DEXA) bone density study performed utilizing [email or web address] machine. FINDINGS: Lumbar spine: L1-L4 region bone mineral density is 1.33 g/cm2 L1-L4 region Z score: 1.9 L1-L4 region T score: 1.3 L1 T score: -0.7 L2 T score: 0.5 L3 T score: 2.4 L4 T score: 2.1 L1-L4 % change when compared to prior examination: +3.7% Hip, left: Femoral neck bone density: 0.97 g/cm2 Femoral neck Z score: 0.5 Femoral neck T score: -0.5 Total hip % change when compared to prior examination: -4.7% IMPRESSION: 1. Bone density measures within normal limits. WHO Definition of Osteoporosis: Normal................ ...................... ...................... ...............L ess than or equal to 1.0 S.D. Below Young Normals Osteopenia............ ...................... ...................... ...........1 to 2.5 S.D. Below Young Normals Osteoporosis.......... ...................... ...................... ..........> 2.5 S.D. Below Young Normals Established Osteoporosis.......... ...................... ...........Osteoporosi s Plus Fracture NOF Treatment Recommendations: All treatment decisions require clinical judgment and consideration of individual patient factors, including patient preferences, comorbidities, previous drug use, risk factors not captured in the fraction multiple (e.g. fragility falls, vitamin D deficiency, increased bone turnover, interval significant decline in bone density) and possible under or over estimation of fracture risk by FRAX. NOF clinician's guide recommends that FDA approved medical therapies be considered in postmenopausal women age 50 years and older with one or more of the following: A. Hip or vertebral fracture B. T score less than or equal to -2.5 at the spine or hip C. 10 year fracture probability by fractures greater than or equal to 30% for a hip fracture or greater than or equal to 20% 4 major osteoporotic fracture. Of note these guidelines apply only to the [place]. FRAX Note: The 10 year fracture risk estimate was calculated using a yes response for the following FRAX risk factors in this individual: maternal/paternal history of hip fracture, tobacco use, alcohol use, prior fracture history (excluding fractures of the skull, facial bones, hands and feet), history of Rheumatoid arthritis, glucocorticoid use, etc. Normal [facility] DXA Skeletal system.axial Vi ews for bone densityon 03-06-2025 IMPRESSION: 1. Bone density measures within normal limits. WHO Definition of Osteoporosis: Normal................ ...................... ...................... ...............L ess than or equal to 1.0 S.D. Below Young Normals Osteopenia............ ...................... ...................... ...........1 to 2.5 S.D. Below Young Normals Osteoporosis.......... ...................... ...................... ..........> 2.5 S.D. Below Young Normals Established Osteoporosis.......... ...................... ...........Osteoporosi s Plus Fracture NOF Treatment Recommendations: All treatment decisions require clinical judgment and consideration of individual patient factors, including patient preferences, comorbidities, previous drug use, risk factors not captured in the fraction multiple (e.g. fragility falls, vitamin D deficiency, increased bone turnover, interval significant decline in bone density) and possible under or over estimation of fracture risk by FRAX. NOF clinician's guide recommends that FDA approved medical therapies be considered in postmenopausal women age 50 years and older with one or more of the following: A. Hip or vertebral fracture B. T score less than or equal to -2.5 at the spine or hip C. 10 year fracture probability by fractures greater than or equal to 30% for a hip fracture or greater than or equal to 20% 4 major osteoporotic fracture. Of note these guidelines apply only to the [place]. FRAX Note: The 10 year fracture risk estimate was calculated using a yes response for the following FRAX risk factors in this individual: maternal/paternal history of hip fracture, tobacco use, alcohol use, prior fracture history (excluding fractures of the skull, facial bones, hands and feet), history of Rheumatoid arthritis, glucocorticoid use, etc. RADIOLOGY EXAMINATION: BONE DENSITY AXIAL (HIP, PELVIS, SPINE), 03/06/2025 2:22 PM EDT HISTORY: Post menopausal female, screening for osteoporosis. COMPARISON: 03/01/2023. TECHNIQUE: Dual-energy X-ray absorptiometry (DEXA) bone density study performed utilizing [employer] machine. FINDINGS: Lumbar spine: L1-L4 region bone mineral density is 1.33 g/cm2 L1-L4 region Z score: 1.9 L1-L4 region T score: 1.3 L1 T score: -0.7 L2 T score: 0.5 L3 T score: 2.4 L4 T score: 2.1 L1-L4 % change when compared to prior examination: +3.7% Hip, left: Femoral neck bone density: 0.97 g/cm2 Femoral neck Z score: 0.5 Femoral neck T score: -0.5 Total hip % change when compared to prior examination: -4.7% RADIOLOGY Chely Paz MD - 03/06/2025 EXAMINATION: BONE DENSITY AXIAL (HIP, PELVIS, SPINE), 03/06/2025 2:22 PM EDT HISTORY: Post menopausal female, screening for osteoporosis. COMPARISON: 03/01/2023. TECHNIQUE: Dual-energy X-ray absorptiometry (DEXA) bone density study performed utilizing [employer] machine. FINDINGS: Lumbar spine: L1-L4 region bone mineral density is 1.33 g/cm2 L1-L4 region Z score: 1.9 L1-L4 region T score: 1.3 L1 T score: -0.7 L2 T score: 0.5 L3 T score: 2.4 L4 T score: 2.1 L1-L4 % change when compared to prior examination: +3.7% Hip, left: Femoral neck bone density: 0.97 g/cm2 Femoral neck Z score: 0.5 Femoral neck T score: -0.5 Total hip % change when compared to prior examination: -4.7% IMPRESSION IMPRESSION: 1. Bone density measures within normal limits. WHO Definition of Osteoporosis: Normal................ ...................... ...................... ......... ......L ess than or equal to 1.0 S.D. Below Young Normals Osteopenia............ ...................... ...................... ......... ..1 to 2.5 S.D. Below Young Normals Osteoporosis.......... ...................... ...................... ......... .> 2.5 S.D. Below Young Normals Established Osteoporosis.......... ...................... ...........Osteoporosi s Plus Fracture NOF Treatment Recommendations: All treatment decisions require clinical judgment and consideration of individual patient factors, including patient preferences, comorbidities, previous drug use, risk factors not captured in the fraction multiple (e.g. fragility falls, vitamin D deficiency, increased bone turnover, interval significant decline in bone density) and possible under or over estimation of fracture risk by FRAX. NOF clinician's guide recommends that FDA approved medical therapies be considered in postmenopausal women age 50 years and older with one or more of the following: A. Hip or vertebral fracture B. T score less than or equal to -2.5 at the spine or hip C. 10 year fracture probability by fractures greater than or equal to 30% for a hip fracture or greater than or equal to 20% 4 major osteoporotic fracture. Of note these guidelines apply only to the [place]. FRAX Note: The 10 year fracture risk estimate was calculated using a yes response for the following FRAX risk factors in this individual: maternal/paternal history of hip fracture, tobacco use, alcohol use, prior fracture history (excluding fractures of the skull, facial bones, hands and feet), history of Rheumatoid arthritis, glucocorticoid use, etc. [facility] Study observation (narrative) [facility] DXA Skeletal system.axial Vi ews for bone densityOrdered By: Chely Paz on 03-06-2025 [facility] US.doppler Carotid arteries - bilateralon 01-08-2025 APPROVED REPORT Conclusion Duplex evaluation demonstrates no evidence of hemodynamically significant stenosis of the bilateral Internal Carotid Arteries (< 50%). Mild intraluminal plaque was visualized in bilateral Carotid Arteries. Indications bilateral stenosis Doppler Spectral Velocity Analysis ECA (R) 139.00/10.00 cm/s ECA (L) 135.00/16.00 cm/s dICA (R) 131.00/35.30 cm/s dICA (L) 125.40/26.30 cm/s Zev (R) 107.20/38.50 cm/s Zev (L) 87.70/29.20 cm/s pICA (R) 87.10/27.50 cm/s pICA (L) 86.20/22.90 cm/s dCCA (R) 79.30/13.20 cm/s dCCA (L) 71.50/19.20 cm/s mCCA (R) 100.80/17.40 cm/s mCCA (L) 106.30/26.60 cm/s pCCA (R) 112.70/15.60 cm/s pCCA (L) 98.10/21.10 cm/s Vert (R) 71.40/18.70 cm/s Vert (L) 63.50/17.10 cm/s ICA/CCA 1.20 ICA/CCA 1.20 Primary Parameters Additional Parameters Degree of Stenosis (%) ICA PSV (cm/sec) Plaque Estimate (%)* ICA/CCA PSV Ratio ICA EDV (cm/sec) Normal < 180 None < 2.0 < 40 <50 < 180 < 50 < 2.0 < 40 50 - 69 180 - 230 > 50 2.0 - 4.0 40 - 100 > 70 but less than near occlusion > 230 > 50 > 4.0 > 100 Near occlusion High/low/undetectable Visible Variable Variable Total Occlusion Undetectable Visible, no detectable lumen Not Applicable Not Applicable *Plaque estimate (diameter reduction) with grayscale and color Doppler US. Conclusion Duplex evaluation demonstrates no evidence of hemodynamically significant stenosis of the bilateral Internal Carotid Arteries (< 50%). Mild intraluminal plaque was visualized in bilateral Carotid Arteries. CARDIOLOGY Dawn Bedolla MD - 01/08/2025 APPROVED REPORT Conclusion Duplex evaluation demonstrates no evidence of hemodynamically significant stenosis of the bilateral Internal Carotid Arteries (< 50%). Mild intraluminal plaque was visualized in bilateral Carotid Arteries. Indications bilateral stenosis Doppler Spectral Velocity Analysis ECA (R) 139.00/10.00 cm/sECA (L) 135.00/16.00 cm/s dICA (R)131.00/35.30 cm/sdICA (L) 125.40/26.30 cm/s Zev (R) 107.20/38.50 cm/smICA (L) 87.70/29.20 cm/s pICA (R) 87.10/27.50 cm/spICA (L) 86.20/22.90 cm/s dCCA (R)79.30/13.20 cm/sdCCA (L) 71.50/19.20 cm/s mCCA (R)100.80/17.40 cm/smCCA (L)106.30/26.60 cm/s pCCA (R) 112.70/15.60 cm/spCCA (L) 98.10/21.10 cm/s Vert (R) 71.40/18.70 cm/sVert (L) 63.50/17.10 cm/s ICA/CCA1.20 ICA/CCA1.20 Primary Parameters Additional Parameters Degree of Stenosis (%)ICA PSV (cm/sec)Plaque Estimate (%)*ICA/CCA PSV RatioICA EDV (cm/sec) Normal< 180None< 2.0< 40 <50< 180< 50< 2.0< 40 50 - 24446 - 230> 502.0 - 4.040 - 100 > 70 but less than near occlusion> 230> 50> 4.0> 100 Near occlusionHigh/low/unde tectableVisibleVariabl eVariable Total OcclusionUndetectableV isible, no detectable lumenNot ApplicableNot Applicable *Plaque estimate (diameter reduction) with grayscale and color Doppler US. Conclusion Duplex evaluation demonstrates no evidence of hemodynamically significant stenosis of the bilateral Internal Carotid Arteries (< 50%). Mild intraluminal plaque was visualized in bilateral Carotid Arteries. [facility] Radiology Study observation (narrative) [facility] US.doppler Carotid arteries - bilateralOrdered By: Dawn Bedolla on 01-08-2025 [facility] Work Phone: [phone] 0H VITAMIN D LEVELon 12-22 25 0H VITAMIN D LEVEL 35.9 NG/ML Normal [facility] Comment on above: Result Comment: DEFICIENT <20 NG/ML INSUFFICIENT 20-<30 NG/ML SUFFICIENT 30-100 NG/ML POTENTIAL TOXICITY >100 NG/ML Performed By: #### T SH2, FEPRO, T42, VITD #### Testing performed at [address] [address] CBCon 12-31-2024 ABSOLUTE BAS 0.1 10*3/uL Normal 0.0-0.2 [facility] Comment on above: Performed By: #### M G #### Testing performed at [address] [address] ABSOLUTE EOS 0.0 10*3/uL Normal 0.0-0.7 [facility] Comment on above: Performed By: #### M G #### Testing performed at [address] [address] ABSOLUTE NEUTROPHIL COUNT 2.4 10*3/uL Normal 1.4-6.5 [facility] Comment on above: Performed By: #### M G #### Testing performed at [address] [address] Basophils/100 WBC (Bld) 1.3 % Normal 0.0-2.0 [facility] Comment on above: Performed By: #### M G #### Testing performed at [address] [address] DTYPE AUTO DIFF Normal [facility] Comment on above: Performed By: #### M G #### Testing performed at [address] [address] Eosinophils/100 WBC (Bld) 0.8 % Normal 0.0-11.0 [facility] Comment on above: Performed By: #### M G #### Testing performed at [address] [address] Lymphocytes (Bld) [#/Vol] 1.8 10*3/uL Normal 1.2-3.4 [facility] Comment on above: Performed By: #### M G #### Testing performed at [address] [place] [address] Lymphocytes/100 WBC (Bld) 37.1 % Normal 20.0-55.0 [facility] Comment on above: Performed By: #### M G #### Testing performed at [address] [address] Monocytes (Bld) [#/Vol] 0.5 10*3/uL Normal 0.0-0.7 [facility] Comment on above: Performed By: #### M G #### Testing performed at [address] [address] Monocytes/100 WBC (Bld) 10.5 % High 0.0-10.0 [facility] Comment on above: Performed By: #### M G #### Testing performed at [address] [address] Neutrophils/100 WBC (Bld) 50.3 % Normal 37.0-75.0 [facility] Comment on above: Performed By: #### M G #### Testing performed at [address] [place] [address] Erythrocyte distribution width (RBC) [Ratio] 14.1 % Normal 11.5-14.5 [facility] Comment on above: Performed By: #### M G #### Testing performed at [address] [address] Hematocrit (Bld) [Volume fraction] 36.3 % Normal 36.0-48.0 [facility] Comment on above: Performed By: #### M G #### Testing performed at [address] [address] Hemoglobin (Bld) [Mass/Vol] 12.0 g/dL Normal 12.0-16.0 [facility] Comment on above: Performed By: #### M G #### Testing performed at [address] [address] MCH (RBC) [Entitic mass] 30.5 pg Normal 26.0-35.0 [facility] Comment on above: Performed By: #### M G #### Testing performed at [address] [address] MCHC (RBC) [Mass/Vol] 33.0 g/dL Normal 27.0-37.0 [facility] Comment on above: Performed By: #### M G #### Testing performed at [address] [address] MCV (RBC) [Entitic vol] 92.5 fL Normal 80.0-100.0 [facility] Comment on above: Performed By: #### M G #### Testing performed at [address] [address] Platelet mean volume (Bld) [Entitic vol] 8.4 fL Normal 7.4-11.0 [facility] Comment on above: Performed By: #### M G #### Testing performed at [address] [address] Platelets (Bld) [#/Vol] 217 10*3/uL Normal 130-400 [facility] Comment on above: Performed By: #### M G #### Testing performed at [address] [address] RBC (Bld) [#/Vol] 3.93 10*6/uL Low 4.0-5.4 [facility] Comment on above: Performed By: #### M G #### Testing performed at [address] [address] WBC (Bld) [#/Vol] 4.8 10*3/uL Normal 3.6-11.0 [facility] Comment on above: Performed By: #### M G #### Testing performed at [address] [address] CMP FASTINGon 12-31-2024 A:G RATIO 1.6 RATIO Normal [facility] Comment on above: Performed By: #### M G #### Testing performed at [address] [address] ALBUMIN 4.1 G/dl Normal 3.5-5.0 [facility] Comment on above: Performed By: #### M G #### Testing performed at [address] [address] ALP [Catalytic activity/Vol] 74 U/L Normal 38-126 [facility] Comment on above: Performed By: #### M G #### Testing performed at [address] [address] ALT [Catalytic activity/Vol] 30 U/L Normal <35 [facility] Comment on above: Performed By: #### M G #### Testing performed at [address] [address] AST [Catalytic activity/Vol] 35 U/L Normal 14-36 [facility] Comment on above: Performed By: #### M G #### Testing performed at [address] [address] Bilirubin [Mass/Vol] 0.6 mg/dL Normal 0.2-1.3 [facility] Comment on above: Performed By: #### M G #### Testing performed at [address] [address] Calcium [Mass/Vol] 8.8 mg/dL Normal 8.4-10.2 [facility] Comment on above: Performed By: #### M G #### Testing performed at [address] [address] Chloride [Moles/Vol] 100 mmol/L Normal 98-107 [facility] Comment on above: Result Comment: Petr kuhn note: Triglyceride levels of 600mg/dL or higher may positively bias chloride results by approximately 2.1 mmol Performed By: #### M G #### Testing performed at [address] [address] CO2 [Moles/Vol] 27 mmol/L Normal 22-30 [facility] Comment on above: Performed By: #### M G #### Testing performed at [address] [address] Creatinine [Mass/Vol] 0.75 mg/dL Normal 0.70-1.20 [facility] Comment on above: Performed By: #### M G #### Testing performed at [address] [address] EST. GFR, 99 ml/min/1.73sq.m [facility] Comment on above: Performed By: #### M G #### Testing performed at [address] [address] EST. GFR,Non 82 ml/min/1.73sq.m Normal [facility] Comment on above: Performed By: #### M G #### Testing performed at [address] [address] GFR Information Average GFR for 60-6 9 years old = 85. Normal [facility] Comment on above: Result Comment: Bilingual Hr Generalist chanda Kidney disease, GFR = <60. Kidney failure, GFR = <15. The GFR estimate is not adjusted for extreme body surface area or acute process, nor has it been validated for women or ethnic groups other than and . Performed By: #### M G #### Testing performed at [address] [address] Glucose [Mass/Vol] 145 mg/dL High 70-100 [facility] Comment on above: Result Comment: NORMAL <100 mg/dL PREDIABETES 101-126 mg/dL DIABETES 126 mg/dL or higher Performed By: #### M G #### Testing performed at [address] [address] Potassium [Moles/Vol] 4.3 mmol/L Normal 3.5-5.1 [facility] Comment on above: Performed By: #### M G #### Testing performed at [address] [address] Protein [Mass/Vol] 6.7 g/dL Normal 6.3-8.2 [facility] Comment on above: Performed By: #### M G #### Testing performed at [address] [address] Sodium [Moles/Vol] 137 mmol/L Normal 137-145 [facility] Comment on above: Performed By: #### M G #### Testing performed at [address] [address] Urea nitrogen [Mass/Vol] 9 mg/dL Normal 7-20 [facility] Comment on above: Performed By: #### M G #### Testing performed at [address] [address] FERRITINon 12-31-2024 Ferritin [Mass/Vol] 18 ng/mL Normal 11.1-264 [facility] Comment on above: Result Comment: EUGENIE ENOPAUSAL FEMALES 6.9-282.5 POSTMENOPAUSAL FEMALES 14.0-233.1 Performed By: #### T SH2, FEPRO, T42, VITD #### Testing performed at [address] [address] FOLATEon 12-31-2024 FOLATE >20.0 High 2.56-20.0 [facility] Comment on above: Performed By: #### T SH2, FEPRO, T42, VITD #### Testing performed at [address] [address] FREE T4on 12-31-2024 Free T4 [Mass/Vol] 1.04 ng/dL Normal 0.78-2.19 [facility] Comment on above: Performed By: #### T SH2, FEPRO, T42, VITD #### Testing performed at [address] [address] HEMOGLOBIN A1Con 12-31-2024 Glucose [Mass/Vol] 114 mg/dL Normal [facility] Comment on above: Performed By: #### T SH2, FEPRO, T42, VITD #### Testing performed at [address] [address] HbA1c (Bld) [Mass fraction] 5.6 % Normal 0-6 [facility] Comment on above: Result Comment: NORMAL <5.7% PREDIABETES 5.7-6.4% DIABETES 6.5% OR HIGHER Performed By: #### T SH2, FEPRO, T42, VITD #### Testing performed at [address] [address] IRON PROFILEon 12-31-2024 IRON BINDING 508 UG/DL High 250-450 [facility] Comment on above: Performed By: #### T SH2, FEPRO, T42, VITD #### Testing performed at [facility] [place] [facility] [address] [place] [address] TRANSFERRIN SATURATION,CALCULATE D 12 % Normal [facility] Comment on above: Performed By: #### T SH2, FEPRO, T42, VITD #### Testing performed at [address] [address] Iron [Mass/Vol] 59 ug/dL Normal 37-170 [facility] Comment on above: Performed By: #### T SH2, FEPRO, T42, VITD #### Testing performed at [address] [address] LIPID PROFILEon 12-31-2024 Cholesterol [Mass/Vol] 212 mg/dL Normal 107-217 [facility] Comment on above: Performed By: #### M G #### Testing performed at [address] [address] Cholesterol in HDL [Mass/Vol] 56 mg/dL Normal 33-75 [facility] Comment on above: Performed By: #### M G #### Testing performed at [address] [address] Cholesterol in LDL [Mass/Vol] 80 mg/dL Normal <100 [facility] Comment on above: Performed By: #### M G #### Testing performed at [address] [address] Cholesterol in VLDL [Mass/Vol] 76 mg/dL High 5-25 [facility] Comment on above: Performed By: #### M G #### Testing performed at [address] [address] Cholesterol.total/Ch olesterol in HDL [Mass ratio] 3.79 {ratio} Normal [facility] Comment on above: Result Comment: RISK TOTAL/HDL RATIO MEN WOMEN 1/2 AVERAGE 3.43 3.27 AVERAGE 4.97 4.44 2X AVERAGE 9.55 7.05 3X AVERAGE 23.99 11.04 Performed By: #### M G #### Testing performed at [address] [address] Triglyceride [Mass/Vol] 379 mg/dL High 0-150 [facility] Comment on above: Performed By: #### M G #### Testing performed at [address] [address] MAGNESIUMon 12-31-2024 Magnesium [Mass/Vol] 1.5 mg/dL Low 1.6-2.3 [facility] Comment on above: Performed By: #### M G #### Testing performed at [address] [address] MALB/CREAT RATIO,URINEon MALB/CREAT RATIO,URINE 4.5 mg MALB/g CREAT Normal 1.3-30.0 [facility] Comment on above: Performed By: #### T SH2, FEPRO, T42, VITD #### Testing performed at [address] [address] MICROALBUMIN,RANDOM URINE 7.3 mg/L Normal 0.0-16.7 [facility] Comment on above: Performed By: #### T SH2, FEPRO, T42, VITD #### Testing performed at [address] [address] URINE CREATININE RANDOM 161.3 MG/DL Normal [facility] Comment on above: Result Comment: NO N ORMAL VALUES ESTABLISHED FOR RANDOM SPECIMENS Performed By: #### T SH2, FEPRO, T42, VITD #### Testing performed at [address] [address] PROTEIN CREATININE RATIOon 0 12-31-2024 PROTEIN CREATININE RATIO NOT CALCULATED Normal [facility] Comment on above: Result Comment: REFERENCE RANGES <0.2 NORMAL 0.2-3.5 NON-NEPHROTIC >3.5 NEPHROTIC Performed By: #### P CR #### Testing performed at [address] [address] URINE CREATININE RANDOM 159.8 MG/DL Normal [facility] Comment on above: Result Comment: NO N ORMAL VALUES ESTABLISHED FOR RANDOM SPECIMENS Performed By: #### P CR #### Testing performed at [address] [address] URINE TP RANDOM <5 Normal 0-12 [facility] Comment on above: Performed By: #### P CR #### Testing performed at [address] [address] PTH,INTACTon 12-31-2024 PTH,INTACT 28.1 pg/mL Normal 14.5-75.2 [facility] Comment on above: Performed By: #### M G #### Testing performed at [address] [address] TSHon 12-31-2024 TSH 0.857 uIU/ML Normal 0.465-4.680 [facility] Comment on above: Performed By: #### T SH2, FEPRO, T42, VITD #### Testing performed at [address] [address] URIC ACIDon 12-31-2024 Urate [Mass/Vol] 8.7 mg/dL High 2.5-6.2 [facility] Comment on above: Performed By: #### M G #### Testing performed at [address] [address] VITAMIN B12on 12-31-2024 Cobalamin (Vitamin B12) [Mass/Vol] 811 pg/mL Normal 239-931 [facility] Comment on above: Performed By: #### T SH2, FEPRO, T42, VITD #### Testing performed at [address] [address] US.doppler Extremity vessels - left 12-05-2024 APPROVED REPORT Conclusion No evidence of DVT in the limb scanned. Left Lower Extremity Venous Study for DVT. Indications Lower Extremity Pain: Left Risk Factors Post OP Vein Imaging CFV (L): compressive, spontaneous, phasic Prof (L): compressive, spontaneous, phasic SF Proximal (L): compressive, spontaneous, phasic SF Mid (L): compressive, spontaneous, phasic SF Distal (L): compressive, spontaneous, phasic POP (L): compressive, spontaneous, phasic PT (L): compressive, spontaneous Per (L): compressive, spontaneous GSV (L): compressive Findings All vessels are patent and compressible with normal doppler responses. CARDIOLOGY Dawn Bedolla MD - 12/05/2024 APPROVED REPORT Conclusion No evidence of DVT in the limb scanned. Left Lower Extremity Venous Study for DVT. Indications Lower Extremity Pain: Left Risk Factors Post OP Vein Imaging CFV (L): compressive, spontaneous, phasic Prof (L): compressive, spontaneous, phasic SF Proximal (L): compressive, spontaneous, phasic SF Mid (L): compressive, spontaneous, phasic SF Distal (L): compressive, spontaneous, phasic POP (L): compressive, spontaneous, phasic PT (L): compressive, spontaneous Per (L): compressive, spontaneous GSV (L): compressive Findings All vessels are patent and compressible with normal doppler responses. [facility] Radiology Study observation (narrative) [facility] US.doppler Extremity vessels - leftOrdered By: Dawn Bedolla on 12-05-2024 [facility] Work Phone: RF videography Hypopharynx a nd Esophagus Views W liquid and paste contrast PO during swallowingon 11-29-2024 IMPRESSION: Normal swallowing study. Please refer to speech therapy report for much more detailed evaluation. RADIOLOGY EXAM: XR FLUORO MODIFIED BARIUM SWALLOW WITH SPEECH HISTORY: dysphagia COMPARISON: None. TECHNIQUE: Lateral videofluoroscopy was performed under direction of speech therapy. Patient was given thin, puree and regular consistencies. Fluoroscopic time was 1.5 minutes. Fluoroscopic dose was 22.14 mGy FINDINGS: No significant abnormality was seen. There is no evidence of penetration or aspiration with thin, puree and regular consistencies. RADIOLOGY Lolita Funk DO - 11/29/2024 EXAM: XR FLUORO MODIFIED BARIUM SWALLOW WITH SPEECH HISTORY: dysphagia COMPARISON: None. TECHNIQUE: Lateral videofluoroscopy was performed under direction of speech therapy. Patient was given thin, puree and regular consistencies. Fluoroscopic time was 1.5 minutes. Fluoroscopic dose was 22.14 mGy FINDINGS: No significant abnormality was seen. There is no evidence of penetration or aspiration with thin, puree and regular consistencies. IMPRESSION IMPRESSION: Normal swallowing study. Please refer to speech therapy report for much more detailed evaluation. [facility] Radiology Study observation (narrative) [facility] RF videography Hypopharynx a nd Esophagus Views W liquid and paste contrast PO during swallowingOrdered By: Lolita Funk on 11-29-2024 [facility] XR FLUORO MODIFIED BARIUM SW ALLOW WITH SPEECHon 11-29-2024 XR FLUORO MODIFIED BARIUM SWALLOW WITH SPEECH EXAM: XR FLUORO MODIFIED BARIUM SWALLOW WITH SPEECH HISTORY: dysphagia COMPARISON: None. TECHNIQUE: Lateral videofluoroscopy was performed under direction of speech therapy. Patient was given thin, puree and regular consistencies. Fluoroscopic time was 1.5 minutes. Fluoroscopic dose was 22.14 mGy FINDINGS: No significant abnormality was seen. There is no evidence of penetration or aspiration with thin, puree and regular consistencies. IMPRESSION: Normal swallowing study. Please refer to speech therapy report for much more detailed evaluation. Normal [facility] BASIC METABOLIC PANELon 10-25 Anion gap [Moles/Vol] 9 mmol/L MMOL/L [facility] Calcium [Mass/Vol] 8.5 mg/dL [facility] Chloride [Moles/Vol] 101 mmol/L [facility] [employer] Comment on above: Please note: Triglyc eride levels of 600mg/dL or higher may positively bias chloride results by approximately 2.1 mmol CO2 [Moles/Vol] 24 mmol/L [facility] Creatinine [Mass/Vol] 0.70 mg/dL [facility] GFR COMMENT Average GFR for 60-6 9 years old = 85. [facility] Comment on above: Chronic Kidney disea se, GFR = <60. Kidney failure, GFR = <15. The GFR estimate is not adjusted for extreme body surface area or acute process, nor has it been validated for women or ethnic groups other than and . GFR/1.73 sq M.predicted among blacks MDRD (S/P/Bld) [Vol rate/Area] 108 mL/min/{1.73_m2} ml/min/1.73sq .m [employer] [facility] GFR/1.73 sq M.predicted among non-blacks MDRD (S/P/Bld) [Vol rate/Area] 89 mL/min/{1.73_m2} ml/min/1.73sq .m [facility] Glucose post fast [Mass/Vol] 165 mg/dL High [facility] Comment on above: NORMAL <100 mg/dL PREDIABETES 101-126 mg/dL DIABETES 126 mg/dL or higher Interpretation and review of laboratory results Abnormal [facility] Potassium [Moles/Vol] 3.8 mmol/L [facility] Sodium [Moles/Vol] 134 mmol/L Low [facility] Urea nitrogen [Mass/Vol] 8 mg/dL [facility] BMP FASTINGon 11-13-2024 Anion gap [Moles/Vol] 9 mmol/L Normal [facility] Comment on above: Performed By: #### A CBC, BMPF #### Testing performed at [place] [id number] Calcium [Mass/Vol] 8.5 mg/dL Normal 8.4-10.2 [facility] Comment on above: Performed By: #### A CBC, BMPF #### Testing performed at [address] [address] Chloride [Moles/Vol] 101 mmol/L Normal 98-107 [facility] Comment on above: Result Comment: Petr kuhn note: Triglyceride levels of 600mg/dL or higher may positively bias chloride results by approximately 2.1 mmol Performed By: #### A CBC, BMPF #### Testing performed at [address] [address] CO2 [Moles/Vol] 24 mmol/L Normal 22-30 [facility] Comment on above: Performed By: #### A CBC, BMPF #### Testing performed at [address] [address] Creatinine [Mass/Vol] 0.70 mg/dL Normal 0.70-1.20 [facility] Comment on above: Performed By: #### A CBC, BMPF #### Testing performed at [address] [address] EST. GFR, 108 ml/min/1.73sq.m [facility] Comment on above: Performed By: #### A CBC, BMPF #### Testing performed at [address] [address] EST. GFR,Non 89 ml/min/1.73sq.m [facility] Comment on above: Performed By: #### A CBC, BMPF #### Testing performed at [address] [address] GFR Information Average GFR for 60-6 9 years old = 85. Normal [facility] Comment on above: Result Comment: Bilingual Hr Generalist chanda Kidney disease, GFR = <60. Kidney failure, GFR = <15. The GFR estimate is not adjusted for extreme body surface area or acute process, nor has it been validated for women or ethnic groups other than and . Performed By: #### A CBC, BMPF #### Testing performed at [address] [address] Glucose [Mass/Vol] 165 mg/dL High 70-100 [facility] Comment on above: Result Comment: NORMAL <100 mg/dL PREDIABETES 101-126 mg/dL DIABETES 126 mg/dL or higher Performed By: #### A CBC, BMPF #### Testing performed at [address] [address] Potassium [Moles/Vol] 3.8 mmol/L Normal 3.5-5.1 [facility] Comment on above: Performed By: #### A CBC, BMPF #### Testing performed at [address] [address] Sodium [Moles/Vol] 134 mmol/L Low 137-145 [facility] Comment on above: Performed By: #### A CBC, BMPF #### Testing performed at [address] [address] Urea nitrogen [Mass/Vol] 8 mg/dL Normal 7-20 [facility] Comment on above: Performed By: #### A CBC, BMPF #### Testing performed at [address] [address] CBCon 11-13-2024 ABSOLUTE BAS 0.0 10*3/uL Normal 0.0-0.2 [facility] Comment on above: Performed By: #### A CBC, BMPF #### Testing performed at [address] [address] ABSOLUTE EOS 0.0 10*3/uL Normal 0.0-0.7 [facility] Comment on above: Performed By: #### A CBC, BMPF #### Testing performed at [address] [address] ABSOLUTE NEUTROPHIL COUNT 7.5 10*3/uL High 1.4-6.5 [facility] Comment on above: Performed By: #### A CBC, BMPF #### Testing performed at [address] [address] Basophils/100 WBC (Bld) 0.0 % Normal 0.0-2.0 [facility] Comment on above: Performed By: #### A CBC, BMPF #### Testing performed at [address] [address] DTYPE AUTO DIFF Normal [facility] Comment on above: Performed By: #### A CBC, BMPF #### Testing performed at [address] [address] Eosinophils/100 WBC (Bld) 0.0 % Normal 0.0-11.0 [facility] Comment on above: Performed By: #### A CBC, BMPF #### Testing performed at [address] [address] Erythrocyte distribution width (RBC) [Ratio] 13.4 % Normal 11.5-14.5 [facility] Comment on above: Performed By: #### A CBC, BMPF #### Testing performed at [address] [address] Hematocrit (Bld) [Volume fraction] 31.4 % Low 36.0-48.0 [facility] Comment on above: Performed By: #### A CBC, BMPF #### Testing performed at [address] [address] Hemoglobin (Bld) [Mass/Vol] 10.6 g/dL Low 12.0-16.0 [facility] Comment on above: Performed By: #### A CBC, BMPF #### Testing performed at [address] [address] Lymphocytes (Bld) [#/Vol] 1.6 10*3/uL Normal 1.2-3.4 [facility] Comment on above: Performed By: #### A CBC, BMPF #### Testing performed at [address] [address] Lymphocytes/100 WBC (Bld) 16.9 % Low 20.0-55.0 [facility] Comment on above: Performed By: #### A CBC, BMPF #### Testing performed at [address] [address] MCH (RBC) [Entitic mass] 32.2 pg Normal 26.0-35.0 [facility] Comment on above: Performed By: #### A CBC, BMPF #### Testing performed at [address] [address] MCHC (RBC) [Mass/Vol] 33.8 g/dL Normal 27.0-37.0 [facility] Comment on above: Performed By: #### A CBC, BMPF #### Testing performed at [address] [address] MCV (RBC) [Entitic vol] 95.2 fL Normal 80.0-100.0 [facility] Comment on above: Performed By: #### A CBC, BMPF #### Testing performed at [address] [address] Monocytes (Bld) [#/Vol] 0.5 10*3/uL Normal 0.0-0.7 [facility] Comment on above: Performed By: #### A CBC, BMPF #### Testing performed at [address] [address] Monocytes/100 WBC (Bld) 5.0 % Normal 0.0-10.0 [facility] Comment on above: Performed By: #### A CBC, BMPF #### Testing performed at [address] [address] Neutrophils/100 WBC (Bld) 78.1 % High 37.0-75.0 [facility] Comment on above: Performed By: #### A CBC, BMPF #### Testing performed at [address] [address] Platelet mean volume (Bld) [Entitic vol] 9.5 fL Normal 7.4-11.0 [facility] Comment on above: Performed By: #### A CBC, BMPF #### Testing performed at [address] [address] Platelets (Bld) [#/Vol] 159 10*3/uL Normal 130-400 [facility] Comment on above: Performed By: #### A CBC, BMPF #### Testing performed at [address] [address] RBC (Bld) [#/Vol] 3.30 10*6/uL Low 4.0-5.4 [facility] Comment on above: Performed By: #### A CBC, BMPF #### Testing performed at [address] [address] WBC (Bld) [#/Vol] 9.6 10*3/uL Normal 3.6-11.0 [facility] Comment on above: Performed By: #### A CBC, BMPF #### Testing performed at [address] [address] CBC, EDIF, PLATELETon 2024 ABSOLUTE BASOPHIL COUNT 0.0 10*3/uL 0.0 - 0.2 10*3/uL [facility] Basophils/100 WBC (Bld) 0.0 % 0.0 - 2.0 % [facility] Differential cell count method Nom (Bld) AUTO DIFF % [facility] Eosinophils (Bld) [#/Vol] 0.0 10*3/uL 0.0 - 0.7 10*3/uL [facility] Eosinophils/100 WBC (Bld) 0.0 % 0.0 - 11.0 % [facility] Erythrocyte distribution width (RBC) [Ratio] 13.4 % 11.5 - 14.5 % [facility] Hematocrit (Bld) [Volume fraction] 31.4 % Low 36.0 - 48.0 % [facility] Hemoglobin (Bld) [Mass/Vol] 10.6 g/dL Low [facility] Interpretation and review of laboratory results Abnormal [facility] Lymphocytes (Bld) [#/Vol] 1.6 10*3/uL 1.2 - 3.4 10*3/uL [facility] Lymphocytes/100 WBC (Bld) 16.9 % Low 20.0 - 55.0 % [facility] MCH (RBC) [Entitic mass] 32.2 pg 26.0 - 35.0 PG [facility] MCHC (RBC) [Mass/Vol] 33.8 g/dL [facility] MCV (RBC) [Entitic vol] 95.2 fL [facility] Monocytes (Bld) [#/Vol] 0.5 10*3/uL 0.0 - 0.7 10*3/uL [facility] Monocytes/100 WBC (Bld) 5.0 % 0.0 - 10.0 % [facility] Neutrophils (Bld) [#/Vol] 7.5 10*3/uL High 1.4 - 6.5 10*3/uL [facility] Neutrophils/100 WBC (Bld) 78.1 % High 37.0 - 75.0 % [facility] Platelet mean volume (Bld) [Entitic vol] 9.5 fL [facility] Platelets (Bld) [#/Vol] 159 10*3/uL 130 - 400 10*3/uL [facility] RBC (Bld) [#/Vol] 3.30 10*6/uL Low 4.0 - 5.4 10*6/uL [facility] WBC (Bld) [#/Vol] 9.6 10*3/uL 3.6 - 11.0 10*3/uL [facility] XR KNEE LEFT 1-2 VIEWSon XR KNEE LEFT 1-2 VIEWS EXAM: XR KNEE LEFT 1-2 VIEWS HISTORY: tka. COMPARISON: Preop 08/30/2024. FINDINGS/IMPRESSION: 1. Postop left total knee prosthesis. 2. Anatomic alignment. 3. Surgical drain superiorly. 4. Patellar prosthesis normal. Normal [facility] XR Knee - left 2 Viewson FINDINGS/IMPRESSION: 1. Postop left total knee prosthesis. 2. Anatomic alignment. 3. Surgical drain superiorly. 4. Patellar prosthesis normal. RADIOLOGY EXAM: XR KNEE LEFT 1 -2 VIEWS HISTORY: tka. COMPARISON: Preop 08/30/2024. RADIOLOGY Enio Hairston., Yogesh Callahan MD - 11/12/2024 EXAM: XR KNEE LEFT 1-2 VIEWS HISTORY: tka. COMPARISON: Preop 08/30/2024. IMPRESSION FINDINGS/IMPRESSION: 1. Postop left total knee prosthesis. 2. Anatomic alignment. 3. Surgical drain superiorly. 4. Patellar prosthesis normal. [facility] Radiology Study observation (narrative) [facility] XR Knee - left 2 ViewsOrdere d By: Yogesh Steen [facility] Work Phone: No Panel Informationon 10-29 [facility] [place] [facility] Patient Name: Elena Galeano Procedure Date: 10/29/2024 9:56 AM Date of : 1960 Admit Type: Outpatient Age: 64 Room: Procedure Room #2 Gender: Female Note Status: Finalized Attending MD: Delilah Ellis JR, DO, [id number] Instrument Name: [id number] Procedure: Upper GI endoscopy Attending Participation: I personally performed the entire procedure. Indications: Dysphagia Providers: Delilah Ellis JR, DO Referring MD: Fernie Paredes DO Complications: No immediate complications. Estimated Blood Loss: Estimated blood loss: none. Medicines: See the Anesthesia note for documentation of the administered medications Procedure: Pre-Anesthesia Assessment: - Prior to the procedure, a History and Physical was performed, and patient medications and allergies were reviewed. The patient is competent. The risks and benefits of the procedure and the sedation options and risks were discussed with the patient. All questions were answered and informed consent was obtained. Patient identification and proposed procedure were verified by the physician in the pre-procedure area. Airway Examination: normal oropharyngeal airway and neck mobility. Respiratory Examination: clear to auscultation. CV Examination: normal. Prophylactic Antibiotics: The patient does not require prophylactic antibiotics. Prior Anticoagulants: The patient has taken no anticoagulant or antiplatelet agents. ASA Grade Assessment: II - A patient with mild systemic disease. After reviewing the risks and benefits, the patient was deemed in satisfactory condition to undergo the procedure. The anesthesia plan was to use moderate sedation / analgesia (conscious sedation). Immediately prior to administration of medications, the patient was re-assessed for adequacy to receive sedatives. The heart rate, respiratory rate, oxygen saturations, blood pressure, adequacy of pulmonary ventilation, and response to care were monitored throughout the procedure. The physical status of the patient was re-assessed after the procedure. After obtaining informed consent, the endoscope was passed under direct vision. Throughout the procedure, the patient's blood pressure, pulse, and oxygen saturations were monitored continuously. CO2 was used. The Endoscope was introduced through the mouth, and advanced to the second part of duodenum. The upper GI endoscopy was accomplished without difficulty. The patient tolerated the procedure well. Findings: The nasopharynx was normal. The examined esophagus was normal. A 1 cm hiatal hernia was present. The entire examined stomach was normal. The examined duodenum was normal. Impression: - Normal nasopharynx. - Normal esophagus. - 1 cm hiatal hernia. - Normal stomach. - Normal examined duodenum. - No specimens collected. Recommendation: - Discharge patient to home (ambulatory). - Resume previous diet. - Continue present medications. - Return to my office PRN. Procedure Code(s): --- Professional --- 08186, Esophagogastroduodenos copy, flexible, transoral; diagnostic, including collection of specimen(s) by brushing or washing, when performed (separate procedure) Diagnosis Code(s): --- Professional --- K44.9, Diaphragmatic hernia without obstruction or gangrene R13.10, Dysphagia, unspecified CPT copyright 2022 [employer]. All rights reserved. The codes documented in this report are preliminary and upon lobsterman review may be revised to meet current compliance requirements. Delilah Ellis JR, DO 10/29/2024 10:26:10 AM (more content not included)... LAB, [facility] Radiology Study observation (narrative) [facility] CBCon 10-15-2024 ABSOLUTE BAS 0.0 10*3/uL Normal 0.0-0.2 [facility] Comment on above: Performed By: #### M G #### Testing performed at [address] [address] ABSOLUTE EOS 0.1 10*3/uL Normal 0.0-0.7 [facility] Comment on above: Performed By: #### M G #### Testing performed at [address] [address] ABSOLUTE NEUTROPHIL COUNT 2.2 10*3/uL Normal 1.4-6.5 [facility] Comment on above: Performed By: #### M G #### Testing performed at [address] [address] Basophils/100 WBC (Bld) 1.1 % Normal 0.0-2.0 [facility] Comment on above: Performed By: #### M G #### Testing performed at [address] [address] DTYPE AUTO DIFF Normal [facility] Comment on above: Performed By: #### M G #### Testing performed at [address] [address] Eosinophils/100 WBC (Bld) 1.2 % Normal 0.0-11.0 [facility] Comment on above: Performed By: #### M G #### Testing performed at [address] [address] Lymphocytes (Bld) [#/Vol] 1.6 10*3/uL Normal 1.2-3.4 [facility] Comment on above: Performed By: #### M G #### Testing performed at [address] [address] Lymphocytes/100 WBC (Bld) 36.9 % Normal 20.0-55.0 [facility] Comment on above: Performed By: #### M G #### Testing performed at [address] [address] Monocytes (Bld) [#/Vol] 0.5 10*3/uL Normal 0.0-0.7 [facility] Comment on above: Performed By: #### M G #### Testing performed at [address] [address] Monocytes/100 WBC (Bld) 11.6 % High 0.0-10.0 [facility] Comment on above: Performed By: #### M G #### Testing performed at [address] [address] Neutrophils/100 WBC (Bld) 49.2 % Normal 37.0-75.0 [facility] Comment on above: Performed By: #### M G #### Testing performed at [address] [address] Erythrocyte distribution width (RBC) [Ratio] 13.4 % Normal 11.5-14.5 [facility] Comment on above: Performed By: #### M G #### Testing performed at [address] [address] Hematocrit (Bld) [Volume fraction] 39.4 % Normal 36.0-48.0 [facility] Comment on above: Performed By: #### M G #### Testing performed at [address] [address] Hemoglobin (Bld) [Mass/Vol] 13.1 g/dL Normal 12.0-16.0 [facility] Comment on above: Performed By: #### M G #### Testing performed at [address] [address] MCH (RBC) [Entitic mass] 32.1 pg Normal 26.0-35.0 [facility] Comment on above: Performed By: #### M G #### Testing performed at [address] [address] MCHC (RBC) [Mass/Vol] 33.2 g/dL Normal 27.0-37.0 [facility] Comment on above: Performed By: #### M G #### Testing performed at [address] [address] MCV (RBC) [Entitic vol] 96.7 fL Normal 80.0-100.0 [facility] Comment on above: Performed By: #### M G #### Testing performed at [address] [address] Platelet mean volume (Bld) [Entitic vol] 9.3 fL Normal 7.4-11.0 [facility] Comment on above: Performed By: #### M G #### Testing performed at [address] [address] Platelets (Bld) [#/Vol] 201 10*3/uL Normal 130-400 [facility] Comment on above: Performed By: #### M G #### Testing performed at [address] [address] RBC (Bld) [#/Vol] 4.08 10*6/uL Normal 4.0-5.4 [facility] Comment on above: Performed By: #### M G #### Testing performed at [address] [address] WBC (Bld) [#/Vol] 4.4 10*3/uL Normal 3.6-11.0 [facility] Comment on above: Performed By: #### M G #### Testing performed at [address] [address] CMP FASTINGon 10-15-2024 A:G RATIO 1.7 RATIO Normal [facility] Comment on above: Performed By: #### M G #### Testing performed at [address] [address] ALBUMIN 4.3 G/dl Normal 3.5-5.0 [facility] Comment on above: Performed By: #### M G #### Testing performed at [address] [address] ALP [Catalytic activity/Vol] 48 U/L Normal 38-126 [facility] Comment on above: Performed By: #### M G #### Testing performed at [address] [address] ALT [Catalytic activity/Vol] 70 U/L High <35 [facility] Comment on above: Performed By: #### M G #### Testing performed at [address] [address] AST [Catalytic activity/Vol] 51 U/L High 14-36 [facility] Comment on above: Performed By: #### M G #### Testing performed at [address] [address] Bilirubin [Mass/Vol] 0.4 mg/dL Normal 0.2-1.3 [facility] Comment on above: Performed By: #### M G #### Testing performed at [address] [address] Calcium [Mass/Vol] 9.8 mg/dL Normal 8.4-10.2 [facility] Comment on above: Performed By: #### M G #### Testing performed at [address] [address] Chloride [Moles/Vol] 104 mmol/L Normal 98-107 [facility] Comment on above: Result Comment: Plea note: Triglyceride levels of 600mg/dL or higher may positively bias chloride results by approximately 2.1 mmol Performed By: #### M G #### Testing performed at [address] [address] CO2 [Moles/Vol] 30 mmol/L Normal 22-30 [facility] Comment on above: Performed By: #### M G #### Testing performed at [address] [address] Creatinine [Mass/Vol] 0.90 mg/dL Normal 0.70-1.20 [facility] Comment on above: Performed By: #### M G #### Testing performed at [address] [address] EST. GFR, 81 ml/min/1.73sq.m Normal [facility] Comment on above: Performed By: #### M G #### Testing performed at [address] [address] EST. GFR,Non 67 ml/min/1.73sq.m [facility] Comment on above: Performed By: #### M G #### Testing performed at [address] [address] GFR Information Average GFR for 60-6 9 years old = 85. Normal [facility] Comment on above: Result Comment: Bilingual Hr Generalist chanda Kidney disease, GFR = <60. Kidney failure, GFR = <15. The GFR estimate is not adjusted for extreme body surface area or acute process, nor has it been validated for women or ethnic groups other than and . Performed By: #### M G #### Testing performed at [address] [address] Glucose [Mass/Vol] 151 mg/dL High 70-100 [facility] Comment on above: Result Comment: NORMAL <100 mg/dL PREDIABETES 101-126 mg/dL DIABETES 126 mg/dL or higher Performed By: #### M G #### Testing performed at [address] [address] Potassium [Moles/Vol] 4.0 mmol/L Normal 3.5-5.1 [facility] Comment on above: Performed By: #### M G #### Testing performed at [address] [address] Protein [Mass/Vol] 6.8 g/dL Normal 6.3-8.2 [facility] Comment on above: Performed By: #### M G #### Testing performed at [address] [address] Sodium [Moles/Vol] 139 mmol/L Normal 137-145 [facility] Comment on above: Performed By: #### M G #### Testing performed at [address] [address] Urea nitrogen [Mass/Vol] 13 mg/dL Normal 7-20 [facility] Comment on above: Performed By: #### M G #### Testing performed at [address] [address] HEMOGLOBIN A1Con 10-15-2024 Glucose [Mass/Vol] 123 mg/dL Normal [facility] Comment on above: Performed By: #### T SH2, FEPRO, T42, VITD #### Testing performed at [address] [address] HbA1c (Bld) [Mass fraction] 5.9 % Normal 0-6 [facility] Comment on above: Result Comment: NORMAL <5.7% PREDIABETES 5.7-6.4% DIABETES 6.5% OR HIGHER Performed By: #### T SH2, FEPRO, T42, VITD #### Testing performed at [address] [address] MRSA SCREENon 10-15-2024 MRSA DNA NEWTON+probe Ql (Unsp spec) Negative Normal NEGATIVE [facility] Comment on above: Performed By: #### A CBC, BMPF #### Testing performed at [address] [address] STAPH AUREUS SCREEN Negative Normal NEGATIVE [facility] Comment on above: Result Comment: TEST ING PERFORMED BY PCR Performed By: #### A CBC, BMPF #### Testing performed at [address] [address] PROTIMEon 10-15-2024 INR Coag (PPP) [Relative time] 0.99 {INR} Normal 0.85-1.10 [facility] Comment on above: Result Comment: 2.0-3.0 THERAPEUTIC RANGE 2.5-3.5 MECHANICAL VALVE RANGE Performed By: #### M G #### Testing performed at [address] [place] [address] PT Coag (PPP) [Time] 13.2 s Normal 11.8-14.4 [facility] Comment on above: Performed By: #### M G #### Testing performed at [address] [address] URINE MACROSCOPICon 10-15-20 24 Bilirubin Ql (U) Negative Normal NEGATIVE [facility] Comment on above: Performed By: #### U LINETTE, UMAC #### Testing performed at [address] [address] Clarity (U) SLIGHTLY CLOUDY Abnormal CLEAR [facility] Comment on above: Performed By: #### U LINETTE, UMAC #### Testing performed at [address] [address] Color (U) YELLOW Normal YELLOW [facility] Comment on above: Performed By: #### U LINETTE, UMAC #### Testing performed at [address] [address] Glucose Ql (U) Negative Normal NEGATIVE [facility] Comment on above: Performed By: #### U LINETTE, UMAC #### Testing performed at [address] [address] pH (U) 5.5 [pH] Normal 5.0-7.0 [facility] Comment on above: Performed By: #### U LINETTE, UMAC #### Testing performed at [address] [address] URINE HEMOGLOBIN Negative Normal NEGATIVE [facility] Comment on above: Performed By: #### U LINETTE, UMAC #### Testing performed at [address] [place] [address] URINE KETONE Negative Normal NEGATIVE [facility] Comment on above: Performed By: #### U LINETTE, UMAC #### Testing performed at [address] [address] URINE LEUKOTEST TRACE Abnormal NEGATIVE [facility] Comment on above: Performed By: #### U LINETTE, UMAC #### Testing performed at [address] [address] URINE NITRATES Negative Normal NEGATIVE [facility] Comment on above: Performed By: #### U LINETTE, UMAC #### Testing performed at [address] [address] URINE SPEC GRAVITY 1.025 Normal 1.010-1.025 [facility] Comment on above: Performed By: #### U LINETTE, UMAC #### Testing performed at [address] [address] URINE TOTAL PROTEIN Negative Normal NEGATIVE [facility] Comment on above: Performed By: #### U LINETTE, UMAC #### Testing performed at [address] [address] Urobilinogen Qn (U) 0.2 {Mima'U}/dL Normal 0.2-1.0 [facility] Comment on above: Performed By: #### U LINETTE, UMAC #### Testing performed at [address] [address] URINE MICROSCOPICon 12-20 24 BACTERIA 2+ Abnormal NEGATIVE [facility] Comment on above: Performed By: #### A CBC, BMPF #### Testing performed at [address] [address] CASTS NONE Normal NONE [facility] Comment on above: Performed By: #### A CBC, BMPF #### Testing performed at [address] [place] [address] [facility] Comment on above: Performed By: #### A CBC, BMPF #### Testing performed at [address] [address] Epithelial cells LM Ql (Urine sed) 10 TO 20 Normal [facility] Comment on above: Performed By: #### A CBC, BMPF #### Testing performed at [address] [address] Mucus Ql (Urine sed) Negative Normal NEGATIVE [facility] Comment on above: Performed By: #### A CBC, BMPF #### Testing performed at [address] [place] [address] URINE COMMENT POSSIBLY CONTAMINATE D SPECIMEN, CULTURE MUST BE ORDERED SEPARATELY IF DEEMED NECESSARY. Normal [facility] Comment on above: Performed By: #### A CBC, BMPF #### Testing performed at [address] [address] URINE RBC'S Negative Normal NEGATIVE [facility] Comment on above: Performed By: #### A CBC, BMPF #### Testing performed at [address] [address] URINE WBC'S '5 TO 10 Normal NEGATIVE [facility] Comment on above: Performed By: #### A CBC, BMPF #### Testing performed at [address] [address] FUNDUS PHOTOS OU (BOTH EYES) on 10-02-2024 [facility] Radiology Study observation (narrative) [facility] OCT OPTIC NERVE CIRRUS OU (B OTH EYES)on 10-02-2024 [facility] Radiology Study observation (narrative) [facility] CBC AND ELECTRONIC DIFFon Basophils (Bld) [#/Vol] K/uL Male: 0.00-0.09, Female: 0.00-0.15 K/uL [facility] Basophils/100 WBC (Bld) 0.5 % [facility] Differential cell count method Nom (Bld) Electronic Differential [facility] Eosinophils (Bld) [#/Vol] 0.04 10*3/uL Male: 0.00-0.48, Female: 0.00-0.42 [facility] Eosinophils/100 WBC (Bld) 0.7 % [facility] Erythrocyte distribution width (RBC) [Ratio] 12.2 % Male: 10.9-14.9, Female: 10.8-14.9 [facility] Hematocrit (Bld) [Volume fraction] 37.8 % Low Male: 39.6-48.8, Female: 34.9-44.3 [facility] Hemoglobin (Bld) [Mass/Vol] 13.0 g/dL Low Male: 13.4-16.8, Female: 11.4-15.2 [facility] Immature granulocytes (Bld) [#/Vol] K/uL Male: <=0.07, Female: <=0.08 K/uL [facility] Immature granulocytes/100 WBC (Bld) 0.4 % [facility] Interpretation and review of laboratory results Abnormal [facility] Lymphocytes (Bld) [#/Vol] 2.35 10*3/uL Male: 0.83-3.57, Female: 1.16-3.51 [facility] Lymphocytes/100 WBC (Bld) 43.0 % [facility] MCH (RBC) [Entitic mass] 32.3 pg Male: 26.1-33.3, Female: 25.9-33.9 [facility] MCHC (RBC) [Mass/Vol] 34.4 g/dL Male: 31.9-36.5, Female: 31.4-35.9 [facility] MCV (RBC) [Entitic vol] 94.0 fL Male: 79.0-94.5, Female: 79.6-97.7 [facility] Monocytes (Bld) [#/Vol] 0.64 10*3/uL Male: 0.24-0.93 Female: 0.22-0.87 [facility] Monocytes/100 WBC (Bld) 11.7 % [facility] Neutrophils (Bld) [#/Vol] 2.38 10*3/uL Male: 1.57-6.19, Female: 1.64-7.28 [facility] Nucleated RBC/100 WBC (Bld) [Ratio] 0.0 % NINF [facility] Platelet mean volume (Bld) [Entitic vol] 10.4 fL Male: 8.7-12.3, Female: 8.5-12.2 [facility] Platelets (Bld) [#/Vol] 208 10*3/uL Male: 146-337, Female: 150-393 [facility] RBC (Bld) [#/Vol] 4.02 10*6/uL Low Male: 4.38-5.83, Female: 3.91-5.04 M/uL [facility] Segmented neutrophils/100 WBC (Bld) 43.7 % [facility] WBC (Bld) [#/Vol] 5.46 10*3/uL Male: 3.73-10.10, Female: 3.99-11.19 [facility] Auto < Normal Male: 0.00-0.09, Female: 0.00-0.15 [facility] Comment on above: Performed By: #### L [id number] #### [facility] (DEFAULT) [address] [place] [address] Basophils/100 WBC (Bld) 0.5 % Normal [facility] Comment on above: Performed By: #### L [id number] #### [facility] (DEFAULT) [address] [address] DIFF STATUS Electronic Differential Normal [facility] Comment on above: Performed By: #### L [id number] #### [facility] (DEFAULT) [address] [place] [address] Eosinophils (Bld) [#/Vol] 0.04 10*3/uL Normal Male: 0.00-0.48, Female: 0.00-0.42 [facility] Comment on above: Performed By: #### L AB980 #### [facility] (DEFAULT) [address] [address] Eosinophils/100 WBC (Bld) 0.7 % Normal [facility] Comment on above: Performed By: #### L AB980 #### [facility] (DEFAULT) [address] [address] Hematocrit (Bld) [Volume fraction] 37.8 % Low Male: 39.6-48.8, Female: 34.9-44.3 [facility] Comment on above: Performed By: #### L AB980 #### [facility] (DEFAULT) [address] [address] Hemoglobin (Bld) [Mass/Vol] 13.0 g/dL Low Male: 13.4-16.8, Female: 11.4-15.2 [facility] Comment on above: Performed By: #### L [id number] #### [facility] (DEFAULT) [address] [address] Immature Grans % 0.4 % Normal [facility] Comment on above: Performed By: #### L [id number] #### [facility] (DEFAULT) [address] [address] Immature Grans Absolute < Normal Male: <=0.07, Female: <=0.08 [facility] Comment on above: Performed By: #### L [id number] #### [facility] (DEFAULT) [address] [address] Lymphocytes (Bld) [#/Vol] 2.35 10*3/uL Normal Male: 0.83-3.57, Female: 1.16-3.51 [facility] Comment on above: Performed By: #### L AB980 #### [facility] (DEFAULT) [address] [address] Lymphocytes/100 WBC (Bld) 43.0 % Normal [facility] Comment on above: Performed By: #### L AB980 #### [facility] (DEFAULT) [address] [address] MCV (RBC) [Entitic vol] 94.0 fL Normal Male: 79.0-94.5, Female: 79.6-97.7 [facility] Comment on above: Performed By: #### L AB980 #### [facility] (DEFAULT) [address] [address] Mean Cell Hgb 32.3 pg Normal Male: 26.1-33.3, Female: 25.9-33.9 [facility] Comment on above: Performed By: #### L AB980 #### [facility] (DEFAULT) [address] [address] Mean Cell Hgb Conc 34.4 g/dL Normal Male: 31.9-36.5, Female: 31.4-35.9 [facility] Comment on above: Performed By: #### L AB980 #### [facility] (DEFAULT) [address] [place] [address] Monocytes (Bld) [#/Vol] 0.64 10*3/uL Normal Male: 0.24-0.93 Female: 0.22-0.87 [facility] Comment on above: Performed By: #### L [id number] #### [facility] (DEFAULT) [address] [place] [address] Monocytes/100 WBC (Bld) 11.7 % Normal [facility] Comment on above: Performed By: #### L [id number] #### [facility] (DEFAULT) [address] [address] Nucleated RBC 0.0 /100 WBC Normal <=0.2 [facility] Comment on above: Performed By: #### L [id number] #### [facility] (DEFAULT) [address] [address] Platelet mean volume (Bld) [Entitic vol] 10.4 fL Normal Male: 8.7-12.3, Female: 8.5-12.2 [facility] Comment on above: Performed By: #### L [id number] #### [facility] (DEFAULT) [address] [address] Platelets (Bld) [#/Vol] 208 10*3/uL Normal Male: 146-337, Female: 150-393 [facility] Comment on above: Performed By: #### L [id number] #### [facility] (DEFAULT) [address] [address] RBC (Bld) [#/Vol] 4.02 10*6/uL Low Male: 4.38-5.83, Female: 3.91-5.04 [facility] Comment on above: Performed By: #### L [id number] #### [facility] (DEFAULT) [address] [address] RBC Distribution 12.2 % Normal Male: 10.9-14.9, Female: 10.8-14.9 [facility] Comment on above: Performed By: #### L [id number] #### [facility] (DEFAULT) [address] [place] [address] Segs + Bands Auto 43.7 % Normal [facility] Comment on above: Performed By: #### L [id number] #### [facility] (DEFAULT) [address] [place] [address] Segs + Bands,Absolute Auto 2.38 K/uL Normal Male: 1.57-6.19, Female: 1.64-7.28 [facility] Comment on above: Performed By: #### L [id number] #### [facility] (DEFAULT) [address] [place] [address] WBC (Bld) [#/Vol] 5.46 10*3/uL Normal Male: 3.73-10.10, Female: 3.99-11.19 [facility] Comment on above: Performed By: #### L [id number] #### [facility] (DEFAULT) [address] [place] [address] COMPREHENSIVE METABOLIC PANE Ethan 09-19-2024 Albumin [Mass/Vol] 4.2 g/dL Male: 3.5-5.0, Female: 3.5-5.0 [facility] ALP [Catalytic activity/Vol] 55 U/L Male: 32-126, Female: 32-126 [facility] ALT [Catalytic activity/Vol] 26 U/L Male: 10-52, Female: 9-48 [facility] Anion gap [Moles/Vol] 14 mmol/L 7 - 17 mmol/L [facility] AST [Catalytic activity/Vol] 23 U/L Male: 10-39, Female: 10-39 [facility] Bilirubin [Mass/Vol] 0.5 mg/dL NINF - 1.5 mg/dL [facility] Calcium [Mass/Vol] 9.5 mg/dL 8.6 - 10. 5 mg/dL [facility] Chloride [Moles/Vol] 98 mmol/L 98 - 10 8 mmol/L [facility] CO2 [Moles/Vol] 28 mmol/L 21 - 31 mmol/L [facility] Creatinine [Mass/Vol] 0.97 mg/dL Male: 0.7-1.3, Female: 0.5-1.2 [facility] eGFR, CKD-EPI, Female 64 - PINF [facility] Comment on above: Reported eGFR is bas ed on the CKD-EPI 2020 equation using creatinine, age, and sex. eGFR, CKD-EPI, Male 86 - PINF [facility] Comment on above: Reported eGFR is bas ed on the CKD-EPI 2020 equation using creatinine, age, and sex. Glucose [Mass/Vol] 125 mg/dL High 70 - 99 mg/dL [facility] Interpretation and review of laboratory results Abnormal [facility] Osmolality Calc [Osmolality] 286 [facility] Potassium [Moles/Vol] 4.0 mmol/L 3.5 - 5.0 mmol/L [facility] Protein [Mass/Vol] 7.1 g/dL 6.4 - 8.3 g/dL [facility] Sodium [Moles/Vol] 136 mmol/L 135 - 145 mmol/L [facility] Urea nitrogen [Mass/Vol] 9 mg/dL 7 - 25 mg/dL [facility] Urea nitrogen/Creatinine [Mass ratio] 9 mg/mg [facility] Albumin [Mass/Vol] 4.2 g/dL Normal Male: 3.5-5.0, Female: 3.5-5.0 [facility] Comment on above: Performed By: #### L DO CMPN #### [facility] (DEFAULT) [address] [place] [address] ALP [Catalytic activity/Vol] 55 U/L Normal Male: 32-126, Female: 32-126 [facility] Comment on above: Performed By: #### L DO, CMPN #### [facility] (DEFAULT) [address] [place] [address] ALT [Catalytic activity/Vol] 26 U/L Normal Male: 10-52, Female: 9-48 [facility] Comment on above: Performed By: #### L DO, CMPN #### [facility] (DEFAULT) [address] [place] [address] Anion gap [Moles/Vol] 14 mmol/L Normal 7-17 [facility] Comment on above: Performed By: #### L DO, CMPN #### [facility] (DEFAULT) [address] [place] [address] AST [Catalytic activity/Vol] 23 U/L Normal Male: 10-39, Female: 10-39 [facility] Comment on above: Performed By: #### L DO, CMPN #### [facility] (DEFAULT) [address] [place] [address] Bilirubin [Mass/Vol] 0.5 mg/dL Normal <1.5 [facility] Comment on above: Performed By: #### L DO, CMPN #### [facility] (DEFAULT) [address] [place] [address] Calcium [Mass/Vol] 9.5 mg/dL Normal 8.6-10.5 [facility] Comment on above: Performed By: #### L DO, CMPN #### [facility] (DEFAULT) [address] [place] [address] Chloride [Moles/Vol] 98 mmol/L Normal 98-108 [facility] Comment on above: Performed By: #### L DO, CMPN #### [facility] (DEFAULT) [address] [place] [address] CO2 [Moles/Vol] 28 mmol/L Normal 21-31 [facility] Comment on above: Performed By: #### L DO, CMPN #### [facility] (DEFAULT) [address] [place] [address] Creatinine [Mass/Vol] 0.97 mg/dL Normal Male: 0.7-1.3, Female: 0.5-1.2 [facility] Comment on above: Performed By: #### L DO, CMPN #### [facility] (DEFAULT) [address] [place] [address] GFR/1.73 sq M.predicted among non-blacks MDRD (S/P/Bld) [Vol rate/Area] 86 mL/min/{1.73_m2} Normal >=60 [facility] Comment on above: Result Comment: Repo rted eGFR is based on the CKD-EPI 2021 equation using creatinine, age, and sex. Performed By: #### L DO, CMPN #### [facility] (DEFAULT) [address] [place] [address] GFR/1.73 sq M.predicted among non-blacks MDRD (S/P/Bld) [Vol rate/Area] 64 mL/min/{1.73_m2} Normal >=60 [facility] Comment on above: Result Comment: Repo rted eGFR is based on the CKD-EPI 2021 equation using creatinine, age, and sex. Performed By: #### L DO, CMPN #### [facility] (DEFAULT) [address] [place] [address] Glucose [Mass/Vol] 125 mg/dL High 70-99 [facility] Comment on above: Performed By: #### L DO, CMPN #### [facility] (DEFAULT) [address] [place] [address] Osmolality [Osmolality] 286 mosm/kg Normal 278-305 [facility] Comment on above: Performed By: #### L DO, CMPN #### [facility] (DEFAULT) [address] [place] [address] Potassium [Moles/Vol] 4.0 mmol/L Normal 3.5-5.0 [facility] Comment on above: Performed By: #### L DO, CMPN #### [facility] (DEFAULT) [address] [place] [address] Protein [Mass/Vol] 7.1 g/dL Normal 6.4-8.3 [facility] Comment on above: Performed By: #### L DO, CMPN #### [facility] (DEFAULT) [address] [place] [address] Sodium [Moles/Vol] 136 mmol/L Normal 135-145 [facility] Comment on above: Performed By: #### L DO, CMPN #### [facility] (DEFAULT) [address] [place] [address] Urea nitrogen [Mass/Vol] 9 mg/dL Normal 7-25 [facility] Comment on above: Performed By: #### L DO, CMPN #### [facility] (DEFAULT) [address] [place] [address] Urea nitrogen/Creatinine [Mass ratio] 9 mg/mg Normal [facility] Comment on above: Performed By: #### L DO, CMPN #### [facility] (DEFAULT) [address] [place] [address] LACTATE DEHYDROGENASEon 08-25 Interpretation and review of laboratory results Normal [facility] LDH Lactate to pyruvate reaction [Catalytic activity/Vol] 186 U/L Male: 100-190, Female: 100-190 [facility] LD Total 186 U/L Normal Male: 100-190, Female: 100-190 [facility] Comment on above: Performed By: #### L DO, CMPN #### [facility] (DEFAULT) [address] [place] [address] No Panel Informationon 09-19 [facility] XR SPINE LUMBAR W/ BENDING 6 + VIEWSon 08-20-2024 XR SPINE LUMBAR W/ BENDING 6+ VIEWS EXAM TYPE: XR SPINE LUMBAR W/ BENDING 6+ VIEWS EXAM DATE AND TIME: 08/15/2024 2:15 PM EDT INDICATION: 64 years old Female with low back pain. COMPARISON: 01/23/2024. TECHNIQUE: Routine views of the lumbar spine. FINDINGS/IMPRESSION: 1. There is interval placement of arthrodesis screw through the right sacroiliac joint. Redemonstration of the arthrodesis screws through the left sacroiliac joint. There is no evidence of joint fusion. 2. Levoconvex scoliosis is seen at the lumbar spine measuring 6 degrees from superior endplate of L1 to inferior endplate of L5. 3. There is diffuse loss of disc height with diffuse endplate spurring indicating diffuse disc degenerative changes worst at L4-L5. 4. Grade 1 anterolisthesis is seen at L5 over S1 without evidence of instability. Normal [facility] CT CCTA HEART (POWERHOUSE OPERATOR READ)on 05-31-2024 CT CCTA HEART (POWERHOUSE OPERATOR READ) Cardiac Morphology CTA Post MARY LOU Occluder Patient Name: Elena Galeano Age: 64 y.o. Requesting Physician: Dr Christie Interpreting Nematologist:Naty Unger MD Primary Care Physician: Fernie Paredes Clinical Indication: Left atrial appendage assessment post LAAO procedure Gender: female Race/Ethnicity: White Procedure: Computed tomographic, heart with contrast for evaluation of cardiac structure and morphology (including 3D image post processing, assessment of cardiac function and evaluation of venous structures, if performed). Second 25 sec delayed limited field of view obtained to evaluate for left atrial appendage thrombus. BMI: 36 kg/msq Acquisition mode: Prospectively ECG triggered Complications: None Image Quality: Good. No significant artifacts. Scanner: [employer] DLP: 241.03 mGy Radiation dose reduction was achieved by using automated exposure control and or adjustments of mA and/or kV according to patient size and/or use of iterative reconstruction techniques. Contrast: 100 cc Isovue 370. Pulmonary Vein and Left Atrial Appendage Anatomy Pulmonary Veins: Normal pulmonary venous drainage. There are four pulmonary veins identified. Two on the right and two on the left. The left atrial appendage is well visualized. A 24 mm Watchman FLX device is well-seated in the left atrial appendage. No residual flow noted in left atrial appendage. No thrombus noted on device. No peripheral leak identified. Left atrium: Left atrial size is Enlarged. Left Ventricle: The ventricular cavity size is within normal limits. There is no abnormal filling defects. Pericardium: Normal thickness with no significant effusion or calcification present. Cardiac valves: There is no thickening or calcification in the aortic and mitral annular calcification present. Aorta: Normal caliber of the portion of the thoracic aorta imaged. Mild calcification in the aortic root and descending aorta. AAo 3.1cm at the PA bifurcation PLEASE SEE SEPARATE RADIOLOGY REPORT FOR THE NONCARDIAC FINDINGS IMPRESSION A 24 mm Watchman FLX device is well-seated in the left atrial appendage. No residual flow noted in left atrial appendage. No thrombus noted on device. No peripheral leak identified. Dictated by: NATY UNGER on Lina May 31, 2024 10:49:44 AM EDT Transcribed by: NATY UNGER on Lina May 31, 2024 10:49:44 AM EDT Finalized by: NATY UNGER on TueMay 31, 2024 10:49:44 AM EDT Normal [facility] CT PULMONARY VEIN WITH RECON STRUCTIONS 3Don 05-31-2024 CT PULMONARY VEIN WITH RECONSTRUCTIONS 3D EXAMINATION: CT PULMONARY VEIN WITH RECONSTRUCTIONS 3D HISTORY: ORDERING SYSTEM PROVIDED HISTORY: MARY LOU assessment, s/p LAAO, TECHNOLOGIST PROVIDED HISTORY: Illness/Other Reason for exam: MARY LOU assessment, s/p LAAO, Atrial fibrillation 6 month f/u, supplemental read Encounter Type: Subsequent/Follow-up Additional signs and symptoms: no ORDERING SYSTEM PROVIDED DIAGNOSIS CODES: I48.91 Atrial fibrillation, unspecified type (HCC) COMPARISON: None. TECHNIQUE: CT imaging from the base of the heart to the apex before and after the administration of intravenous contrast. CT pulmonary vein protocol was utilized. Nematologist will interpret the pulmonary vein portion of the examination. Radiologist will interpret the extracardiac portion of the examination. Dose reduction techniques were achieved by using automated exposure control and/or adjustment of mA and/or kV according to patient size and/or use of iterative reconstruction technique. CONTRAST: IOPAMIDOL 370 MG IODINE/ML (76 %) INTRAVENOUS SOLUTION - 100 mL, FINDINGS: MEDIASTINUM: Visualized airways are patent. Heart is normal in size without pericardial effusion. The visualized thoracic aorta is normal in caliber without dissection. Mild atherosclerotic calcification of the thoracic aorta. Main pulmonary artery is normal in caliber. No large central pulmonary embolus. PLEURAL CAVITY: No pleural effusion. LUNGS: No focal airspace consolidation. 3 mm left major fissure perifissural nodule, likely relates to intrapulmonary lymph node. VISUALIZED UPPER ABDOMEN: Hepatic steatosis. BONES: No destructive lesions. IMPRESSION: No focal airspace consolidation. Please refer to separate report for dedicated cardiac evaluation. [facility] Workstation ID: [id number] Dictated by: CLAUDIA GONZALES on TueMay 31, 2024 10:39:01 AM EDT Transcribed by: SEAMUS REARDON on TueMay 31, 2024 10:43:55 AM EDT Finalized by: CLAUDIA GONZALES on TueMay 31, 2024 10:35:55 PM EDT Normal [facility] Comment on above: Order Comment: Injur y/Trauma or Illness?:Illness/Other How long have you had these symptoms (acute/chronic)?:Acute Reason for exam?:MARY LOU assessment, s/p LAAO, Atrial fibrillation 6 month f/u, supplemental read Type of Exam?:Subsequent/Follow-up Additional signs and symptoms?:no BASIC METABOLIC PANELon 04-25 Anion gap [Moles/Vol] 18 mmol/L Normal 10-20 [facility] Comment on above: Order Comment: [facility] has implemented the eGFR calculation approach that does not have a coefficient for race that conforms to the NKF-ASN Task Force Recommendations. Performed By: #### 4 [id number] #### [facility] [address] [address] Ab Navarrete M.D. [id number] Calcium [Mass/Vol] 9.7 mg/dL Normal 8.4-10.[address] [facility] Comment on above: Order Comment: [facility] has implemented the eGFR calculation approach that does not have a coefficient for race that conforms to the NKF-ASN Task Force Recommendations. Performed By: #### 4 [id number] #### LAB [address] [address] Ab Navarrete M.D. [id number] Chloride [Moles/Vol] 98 mmol/L Normal 98-108 [facility] Comment on above: Order Comment: [facility] has implemented the eGFR calculation approach that does not have a coefficient for race that conforms to the NKF-ASN Task Force Recommendations. Performed By: #### 4 [id number] #### [facility] [address] [address] Ab Navarrete M.D. [id number] Creatinine [Mass/Vol] 0.99 mg/dL Normal 0.60-1.10 [facility] Comment on above: Order Comment: [facility] has implemented the eGFR calculation approach that does not have a coefficient for race that conforms to the NKF-ASN Task Force Recommendations. Performed By: #### 4 [id number] #### [facility] [address] [address] Ab Navarrete M.D. [id number] EGFR 63 mL/min/1.73 m2 Normal >=60 [facility] Comment on above: Order Comment: [facility] has implemented the eGFR calculation approach that does not have a coefficient for race that conforms to the NKF-ASN Task Force Recommendations. Result Comment: Nay mated GFR was calculated using the 2020 CKD-EPI creatinine equation. Performed By: #### 4 [id number] #### [facility] [address] [address] Ab Navarrete M.D. [id number] Glucose [Mass/Vol] 110 mg/dL High 65-[address] [facility] Comment on above: Order Comment: [facility] has implemented the eGFR calculation approach that does not have a coefficient for race that conforms to the NKF-ASN Task Force Recommendations. Performed By: #### 4 [id number] #### [facility] [address] [address] Ab Navarrete M.D. [id number] HCO3 (Bld) [Moles/Vol] 27 mmol/L Normal 21-32 [facility] Comment on above: Order Comment: [facility] has implemented the eGFR calculation approach that does not have a coefficient for race that conforms to the NKF-ASN Task Force Recommendations. Performed By: #### 4 [id number] #### LAB [address] [address] Ab Navarrete M.D. [id number] Potassium [Moles/Vol] 4.1 mmol/L Normal 3.5-5.1 [facility] Comment on above: Order Comment: [facility] has implemented the eGFR calculation approach that does not have a coefficient for race that conforms to the NKF-ASN Task Force Recommendations. Performed By: #### 4 [id number] #### LAB [address] [place], [place] [address] Ab Navarrete M.D. [id number] Sodium [Moles/Vol] 139 mmol/L Normal 135-[address] [facility] Comment on above: Order Comment: [facility] has implemented the eGFR calculation approach that does not have a coefficient for race that conforms to the NKF-ASN Task Force Recommendations. Performed By: #### 4 [id number] #### LAB [address] [address] Ab Navarrete M.D. [id number] Urea nitrogen [Mass/Vol] 16 mg/dL Normal 8-25 [facility] Comment on above: Order Comment: [facility] has implemented the eGFR calculation approach that does not have a coefficient for race that conforms to the NKF-ASN Task Force Recommendations. Performed By: #### 4 6124 #### LAB [address] [address] Ab Navarrete M.D. [id number] Urea nitrogen/Creatinine [Mass ratio] 16.2 mg/mg Normal 10.0-20.0 [facility] Comment on above: Order Comment: [facility] has implemented the eGFR calculation approach that does not have a coefficient for race that conforms to the NKF-ASN Task Force Recommendations. Performed By: #### 4 [id number] #### LAB [address] [place], [place] [address] Ab Navarrete M.D. [id number] Basic metabolic 2000 panelon 05-22-2024 Anion gap [Moles/Vol] 18 mmol/L 10 - 20 mmol/L [facility] Calcium [Mass/Vol] 9.7 mg/dL 8.4 - 10. 2 mg/dL [facility] Chloride [Moles/Vol] 98 mmol/L 98 - 10 8 mmol/L [facility] Creatinine [Mass/Vol] 0.99 mg/dL 0.60 - 1.10 mg/dL [facility] GFR/1.73 sq M.predicted CKD-EPI (S/P/Bld) [Vol rate/Area] 63 - PINF [facility] Comment on above: Estimated GFR was ca lculated using the 2020 CKD-EPI creatinine equation. Glucose [Mass/Vol] 110 mg/dL High 65 - 99 mg/dL [facility] HCO3 [Moles/Vol] 27 mmol/L 21 - 32 mmol/L [facility] Interpretation and review of laboratory results Abnormal [facility] Potassium [Moles/Vol] 4.1 mmol/L 3.5 - 5.1 mmol/L [facility] Sodium [Moles/Vol] 139 mmol/L 135 - 145 mmol/L [facility] Urea nitrogen [Mass/Vol] 16 mg/dL 8 - 25 mg/dL [facility] Urea nitrogen/Creatinine [Mass ratio] 16.2 mg/mg 10.0 - 20.0 [facility] has implemented the eGFR calculation approach that does not have a coefficient for race that conforms to the NKF-ASN Task Force Recommendations. [facility] CBC WITH AUTO DIFFERENTIALon 05-22-2024 AUTO NRBC 0.0 % [facility] Comment on above: Performed By: #### L [id number] #### LAB [address] [address] Ab Navarrete M.D. [id number] AUTO NRBC ABS COUNT 0.00 K/mcL Normal 0.00-0.00 [facility] Comment on above: Performed By: #### L [id number] #### [facility] [address] [address] Ab Navarrete M.D. [id number] BASOPHILS ABSOLUTE COUNT 0.06 K/mcL Normal 0.00-0.30 [facility] Comment on above: Performed By: #### L [id number] #### LAB [address] [address] Ab Navarrete M.D. [id number] Basophils/100 WBC (Bld) 0.9 % Normal [facility] Comment on above: Performed By: #### L [id number] #### [facility] [address] [address] Ab Navarrete M.D. [id number] Eosinophils (Bld) [#/Vol] 0.06 10*3/uL Normal 0.00-0.50 [facility] Comment on above: Performed By: #### L [id number] #### LAB [address] [address] Ab Navarrete M.D. [id number] Eosinophils/100 WBC (Bld) 0.9 % Normal [facility] Comment on above: Performed By: #### L [id number] #### LAB [address] [address] Ab Navarrete M.D. [id number] Erythrocyte distribution width (RBC) [Ratio] 13.2 % Normal 11.6-14.8 [facility] Comment on above: Performed By: #### L [id number] #### LAB [address] [address] Ab Navarrete M.D. [id number] Hematocrit (Bld) [Volume fraction] 36.7 % Normal 36.0-46.0 [facility] Comment on above: Performed By: #### L [id number] #### LAB [address] [address] Ab Navarrete M.D. [id number] Hemoglobin (Bld) [Mass/Vol] 12.2 g/dL Normal 12.0-16.0 [facility] Comment on above: Performed By: #### L [id number] #### LAB [address] [address] Ab Navarrete M.D. [id number] IG ABSOLUTE 0.02 K/mcL Normal 0.00-0.30 [facility] Comment on above: Performed By: #### L [id number] #### LAB [address] [address] Ab Navarrete M.D. [id number] IG PERCENT 0.30 % Normal [facility] Comment on above: Result Comment: The IG parameter is the percentage of metamyelocytes, myelocytes and promyelocytes. An immature granulocyte count (IG) of 1% or more suggests the possibility of infection, an IG count of 3% is very likely related to an infection. Performed By: #### L [id number] #### LAB [address] [place] [address] Ab Navarrete M.D. [id number] Lymphocytes (Bld) [#/Vol] 2.59 10*3/uL Normal 0.90-4.00 [facility] Comment on above: Performed By: #### L [id number] #### LAB [address] [address] Ab Navarrete M.D. [id number] Lymphocytes/100 WBC (Bld) 36.9 % Normal [facility] Comment on above: Performed By: #### L [id number] #### LAB [address] [address] Ab Navarrete M.D. [id number] MCH (RBC) [Entitic mass] 32.2 pg Normal 26.0-34.0 [facility] Comment on above: Performed By: #### L [id number] #### LAB [address] [address] Ab Navarrete M.D. [id number] MCV (RBC) [Entitic vol] 96.8 fL Normal 80.0-100.0 [facility] Comment on above: Performed By: #### L [id number] #### LAB [address] [address] Ab Navarrete M.D. [id number] MEAN CORPUSCULAR HEMOGLOBIN CONC 33.2 g/dL Normal 31.0-37.0 [facility] Comment on above: Performed By: #### L [id number] #### LAB [address] [address] Ab Navarrete M.D. [id number] Monocytes (Bld) [#/Vol] 0.65 10*3/uL Normal 0.30-0.90 [facility] Comment on above: Performed By: #### L [id number] #### LAB [address] [address] Ab Navarrete M.D. [id number] Monocytes/100 WBC (Bld) 9.3 % Normal [facility] Comment on above: Performed By: #### L [id number] #### LAB [address] [address] Ab Navarrete M.D. [id number] NEUTROPHILS ABSOLUTE COUNT 3.63 K/mcL Normal 1.70-7.00 [facility] Comment on above: Performed By: #### L [id number] #### LAB [address] [address] Ab Navarrete M.D. [id number] Neutrophils/100 WBC (Bld) 51.7 % Normal [facility] Comment on above: Performed By: #### L [id number] #### LAB [address] [address] Ab Navarrete M.D. [id number] Platelet mean volume (Bld) [Entitic vol] 10.4 fL Normal 9.4-12.4 [facility] Comment on above: Performed By: #### L [id number] #### LAB [address] [address] Ab Navarrete M.D. [id number] Platelets (Bld) [#/Vol] 265 10*3/uL Normal 150-400 [facility] Comment on above: Performed By: #### L [id number] #### LAB [address] [address] Ab Navarrete M.D. [id number] RBC (Bld) [#/Vol] 3.79 10*6/uL Low 4.00-5.20 [facility] Comment on above: Performed By: #### L [id number] #### LAB [address] [address] Ab Navarrete M.D. [id number] WBC (Bld) [#/Vol] 7.01 10*3/uL Normal 4.50-11.00 [facility] Comment on above: Performed By: #### L [id number] #### LAB [address] [place] [address] Ab Navarrete M.D. [id number] LARGE JOINT/BURSA INJECTION AND/OR ASPIRATIONon 01-10-2024 Chelsea Olivarez 01/10/2024 1:28 PM LARGE JOINT/BURSA INJECTION AND/OR ASPIRATION Date/Time: 01/10/2024 12:30 PM Performed by: Garry Stephens MD Authorized by: Garry Stephens MD Supporting Documentation Indications: pain and osteoarthritis Procedure Details: Location: sacroiliac - R sacroiliac joint Local Anesthetic: bupivacaine 0.5% and lidocaine 1% Total Local Anesthetic: 4 mLs Guidance: ultrasound Ultrasound probe size: 4 mHz curvilinear Images were saved electronically. Needle size: 22 G Needle Length: 4.0 inch Approach: posterior Medication Verification: I have personally verified and performed the final check of the medication(s) used in this procedure prior to administration. The following items were included during the verification process for medication(s) administered: drug name, strength, volume, expiration, physical integrity and appearance of the medication(s). Medications administered: 1 mL BUPivacaine 0.5 %; 2 mL triamcinolone 40 MG/ML; 4 mL Lidocaine 10 mg/mL; 5 mL Sodium chloride (PF) 0.9 %; 4 mg dexAMETHasone 4 MG/ML Patient tolerance: patient tolerated the procedure well with no immediate complications Comments Medical Decision Making At today's visit I reviewed the history, physical examination, and previous pertinent imaging. We weighed the options of whether or not to proceed with an injection today based off of these findings and discussed alternatives. After this discussion, I felt that the injection was indicated and we elected to proceed. This evaluation and management service was a separate and identifiable service apart from the injection. Pre-Procedure Details The attending physician was present for the entire procedure. Consent: Consent was obtained prior to the procedure after discussion of the risks, benefits and alternatives, and expected outcomes were discussed with the patient. The possibilities of reaction to medication, bleeding, infection, the need for additional procedures, failure to diagnosis a condition, and creating a complication requiring operation were discussed with the patient. The patient concurred with the proposed plan, giving consent. Preparation: Patient was prepped in the usual sterile fashion. The patient was prepped with Chloraprep. [facility] Radiology Study observation (narrative) [facility] [place] Unspecified body regionon 01-10-2024 Image Storage This order is to facilitate the storage of the image. [facility] Basic metabolic 2000 panelon 03-15-2024 Anion gap [Moles/Vol] 14 mmol/L 10 - 20 mmol/L [facility] Calcium [Mass/Vol] 9.4 mg/dL 8.4 - 10. 2 mg/dL [facility] Chloride [Moles/Vol] 99 mmol/L 98 - 10 8 mmol/L [facility] Creatinine [Mass/Vol] 0.84 mg/dL 0.60 - 1.20 mg/dL [facility] GFR/1.73 sq M.predicted CKD-EPI (S/P/Bld) [Vol rate/Area] 77 - PINF [facility] Comment on above: Estimated GFR was ca lculated using the 2020 CKD-EPI creatinine equation. Glucose [Mass/Vol] 113 mg/dL High 65 - 99 mg/dL [facility] HCO3 [Moles/Vol] 29 mmol/L 21 - 32 mmol/L [facility] Interpretation and review of laboratory results Abnormal [facility] Potassium [Moles/Vol] 4.3 mmol/L 3.5 - 5.1 mmol/L [facility] Sodium [Moles/Vol] 138 mmol/L 135 - 145 mmol/L [facility] Urea nitrogen [Mass/Vol] 13 mg/dL 8 - 25 mg/dL [facility] Urea nitrogen/Creatinine [Mass ratio] 15.5 mg/mg 10.0 - 20.0 [facility] has implemented the eGFR calculation approach that does not have a coefficient for race that conforms to the NKF-ASN Task Force Recommendations. [facility] ECHO RAYO INTRAOP TRANSCATHET ER PROCEDUREon 11-24-2023 ECHO RAYO INTRAOP TRANSCATHETER PROCEDURE Patient Info Name: ELENA GALEANO Age: 63 years : 1960 Gender: Female Ht: 165 cm Wt: 97 kg BSA: 2.15 m2 HR: 63 bpm BP: 119 / 78 mmHg Technical Quality: Good Exam Date: 11/24/2023 7:11 AM Patient Status: Outpatient Director Industrial Relations: Tanya Santana RCDS Exam Type: ECHO RAYO INTRAOP TRANSCATHETER PROCEDURE Study Info Indications Z95.818 - WATCHMAN MARY LOU CLOSURE I48.91 - Unspecified atrial fibrillation [id number] BMI: 35.44 kg/m2 Summary 1. A complete intraprocedural two-dimensional, color flow and Doppler transesophageal study was performed in the invasive procedural suite. Three-dimensional imaging was performed. Esophageal intubation of the RAYO probe was performed by the gravity prospecting observer helper. All findings were discussed immediately with the procedural physicians. 2. Please refer to prior RAYO and/or TTE reports for complete baseline 2D and Doppler findings. 3. Left ventricular chamber dimension is normal. Normal LV systolic function, estimated ejection fraction of 55-60%. 4. Right ventricular chamber dimension is normal. Right ventricular systolic function is normal. 5. S/P procedure there is an iatrogenic ASD with [id number] shunting. 6. Patient is status post left atrial appendage occlusion with a 24 mm Watchman FLX device. The device is well-seated with no MARY LOU to LA communication. 7. There is mid prolapse of the anterior mitral valve leaflet. There is linear mobile echodensity which is consistent with a torn chordae (present prior to the procedure). There is trace mitral regurgitation. 8. There was a trivial to small pericardial effusion prior to the procedure. This was unchanged post procedure. History/Risk Factors Hypertension: Yes Dyslipidemia: Yes Tobacco Use: Never History/Risk Factors A-FIB. Prior Interventions Transcatheter Intervention: MARY LOU Closure Replacement Valve Size: 24MM WATCHMAN FLEX Procedure Details A complete intraprocedural two-dimensional, color flow and Doppler transesophageal study was performed in the invasive procedural suite. Three-dimensional imaging was performed. Esophageal intubation of the RAYO probe was performed by the gravity prospecting observer helper. All findings were discussed immediately with the procedural physicians. Left Ventricle Left ventricular chamber dimension is normal. Normal LV systolic function, estimated ejection fraction of 55-60%. Right Ventricle Right ventricular chamber dimension is normal. Right ventricular systolic function is normal. Left Atria Left atrial chamber dimension is enlarged. Right Atria Right atrial chamber dimension is enlarged. Atrial Septum S/P procedure there is an iatrogenic ASD with [id number] shunting. Atrial Appendage Patient is status post left atrial appendage occlusion with a 24 mm Watchman FLX device. The device is well-seated with no MARY LOU to LA communication. Aortic Valve The aortic valve is trileaflet. There is no aortic valve regurgitation. Pulmonic Valve Pulmonary valve is not well visualized. There is no pulmonic regurgitation. Mitral Valve There is mid prolapse of the anterior mitral valve leaflet. There is linear mobile echodensity which is consistent with a torn chordae (present prior to the procedure). There is trace mitral regurgitation. Tricuspid Valve The tricuspid valve leaflets are normal. There is trace tricuspid regurgitation. Pericardium/Pleural There was a trivial to small pericardial effusion prior to the procedure. This was unchanged post procedure. Aorta No significant plaque disease noted in the visualized aorta. Wall Motion Scoring Wall Motion Scoring Index: 1.00 Report Signatures Echo Finalized by Abhijit Bobby MD on 11/24/2023 01:55 PM Nursing Finalize by Abhijit Bobby MD on 11/24/2023 01:55 PM Normal [facility] ECHOCARDIOGRAM LIMITEDon ECHOCARDIOGRAM LIMITED Patient Info Name: ELENA GALEANO Age: 63 years : 1960 Gender: Female Ht: 165 cm Wt: 95 kg BSA: 2.13 m2 BP: 128 / 76 mmHg Technical Quality: Good Exam Date: 11/24/2023 1:47 PM Patient Status: Inpatient Director Industrial Relations: Max, Tanya, BIMAL Exam Type: ECHOCARDIOGRAM LIMITED Study Info Indications I31.3 - Pericardial effusion (noninflammatory) - Re-assess pericardial effusion Referring Physician: NEGRITO Donis; [id number] BMI: 34.95 kg/m2 Summary 1. A Limited transthoracic echocardiographic study was performed to reassess pericardial effusion. Complete Doppler exam was not performed. 2. The study was technically difficult. 3. Grossly normal LV systolic function. 4. There is a trivial circumferential pericardial effusion, unchanged from RAYO earlier today. History/Risk Factors Hypertension: Yes Dyslipidemia: Yes Tobacco Use: Never History/Risk Factors EFFUSION CHECK POST WATCHMAN PROCEDURE. Prior Interventions Transcatheter Intervention: MARY LOU Closure Replacement Valve Size: 24MM WATCHMAN FLEX Procedure(s): A Limited transthoracic echocardiographic study was performed to reassess pericardial effusion. Complete Doppler exam was not performed. Left Ventricle Grossly normal LV systolic function. Pericardium/Pleural There is a trivial circumferential pericardial effusion, unchanged from RAYO earlier today. Inferior Vena Cava Normal inferior vena cava with >50% collapse upon inspiration consistent with normal right atrial pressure. Report Signatures Finalized by Abhijit Bobby MD on 11/24/2023 02:23 PM [facility] XR CHEST AP/PA AND LATon XR CHEST AP/PA AND LAT EXAMINATION: XR CHEST AP/PA AND LAT 11/24/2023 3:04 pm HISTORY: ORDERING SYSTEM PROVIDED HISTORY: s/p LAAO with Watchman 24mm, TECHNOLOGIST PROVIDED HISTORY: Illness/Other Reason for exam: s/p LAAO with Watchman 24mm Cancer History: n Surgery, RadiationHistory: n Encounter Type: Initial Additional signs and symptoms: . ORDERING SYSTEM PROVIDED DIAGNOSIS CODES: COMPARISON: November 18, 2023. TECHNIQUE: Frontal and lateral views of the chest. FINDINGS: Interval placement of a left atrial appendage occlusion device in expected position. The lungs are expanded with no pneumothorax, focal airspace consolidation or pleural effusion. Cardiomediastinal silhouette is within normal limits. IMPRESSION: No acute cardiopulmonary disease. [employer] Workstation ID: [id number] Dictated by: DEONDRE GARRIDO on TueNov 24, 2023 3:10:52 PM EST Transcribed by: MYRON GOMEZ on TueNov 24, 2023 3:21:53 PM EST Finalized by: DEONDRE GARRIDO on TueNov 24, 2023 3:25:27 PM EST Normal [facility] Comment on above: Order Comment: Injur y/Trauma or Illness?:Illness/Other How long have you had these symptoms (acute/chronic)?:Acute Reason for exam?:s/p LAAO with Watchman 24mm History of cancer?:n Surgeries, chemotherapy, or radiation?:n Type of Exam?:Initial Additional signs and symptoms?:. CT CCTA HEART (POWERHOUSE OPERATOR READ)on 11-18-2023 CT CCTA HEART (POWERHOUSE OPERATOR READ) Cardiac Morphology CTA Prior to MARY LOU Occluder Patient Name: Elena Galeano Age: 63 y.o. Requesting Physician: Dr Christie Interpreting Nematologist:Naty Unger MD Primary Care Physician: Fernie Paredes Clinical Indication: Left atrial appendage assessment prior to LAAO procedure Gender: female Race/Ethnicity: White Procedure: Computed tomographic, heart with contrast for evaluation of cardiac structure and morphology (including 3D image post processing, assessment of cardiac function and evaluation of venous structures, if performed). Second 25 sec delayed limited field of view obtained to evaluate for left atrial appendage thrombus. BMI: 36 kg/msq Acquisition mode: Prospectively ECG triggered Complications: None Image Quality: Good. No significant artifacts. Scanner: [employer] DLP: 222.83 mGy Radiation dose reduction was achieved by using automated exposure control and or adjustments of mA and/or kV according to patient size and/or use of iterative reconstruction techniques. Contrast: 100 cc Isovue 370. Pulmonary Vein and Left Atrial Appendage Anatomy Pulmonary Veins: Normal pulmonary venous drainage. There are four pulmonary veins identified. Two on the right and two on the left. The left atrial appendage is well visualized. Ostial measurement of 19 mm with MARY LOU length of 31 mm. There is no thrombus identified. Left atrium: Left atrial size is Enlarged. Left Ventricle: The ventricular cavity size is within normal limits. There is no abnormal filling defects. Pericardium: Normal thickness with no significant effusion or calcification present. Cardiac valves: There is no thickening or calcification in the aortic and mitral annular calcification present. Aorta: Normal caliber of the portion of the thoracic aorta imaged. Mild calcification in the aortic root and descending aorta. AAo 3.2cm at the PA bifurcation PLEASE SEE SEPARATE RADIOLOGY REPORT FOR THE NONCARDIAC FINDINGS IMPRESSION MARY LOU measurements prior to LAAO implantation as noted above. No thrombus in the LA or MARY LOU Dictated by: NATY UNGER on TueNov 18, 2023 10:12:56 AM EST Transcribed by: NATY UNGER on TueNov 18, 2023 10:12:56 AM EST Finalized by: NATY UNGER on TueNov 18, 2023 10:12:56 AM EST Normal [facility] CT MARY LOU (LEFT ATRIAL APPENDAG E) CCTA WITH AND WITHOUT CONTRASTon 11-18-2023 CT MARY LOU (LEFT ATRIAL APPENDAGE) CCTA WITH AND WITHOUT CONTRAST EXAMINATION: CTA MARY LOU (LEFT ATRIAL APPENDAGE): WITH IV CONTRAST Supplemental read HISTORY: Dx: I48.91 (Atrial fibrillation, unspecified type (HCC)) COMPARISON: None. TECHNIQUE: Postcontrast CT images of the heart are performed during the arterial and delayed phases per left atrial appendage protocol. Coronal and sagittal reconstructions are performed. A total of 75 mL of Isovue-370 was administered intravenously without event. Dose reduction techniques were achieved by using automated exposure control and/or adjustment of mA and/or kV according to patient size and/or use of iterative reconstruction technique. FINDINGS: The imaged portions of the ascending and descending thoracic aorta are overall nonaneurysmal. The imaged central pulmonary arteries are overall normal in caliber and grossly patent in appearance. There is no bulky lymphadenopathy, pleural effusion, or pericardial effusion identified. Images of the upper abdomen are unremarkable. Images on lung windows are grossly clear. Images on bone windows show no acute osseous abnormality. IMPRESSION: 1. No acute abnormality on the supplemental read. 2. Cardiac findings are reported separately. [employer] Workstation ID: [id number] Dictated by: PINKY WEAVER on TueNov 18, 2023 9:22:49 AM EST Transcribed by: MITALI FLORES on TueNov 18, 2023 9:40:25 AM EST Finalized by: PINKY WEAVER on TueNov 18, 2023 3:49:42 PM EST Normal [facility] Comment on above: Order Comment: Injur y/Trauma or Illness?:Illness/Other How long have you had these symptoms (acute/chronic)?:Chronic Reason for exam?:Afib, pre LAAO, supplemental read Type of Exam?:Subsequent/Follow-up Additional signs and symptoms?:. ECG 12 leadon 11-08-2023 Atrial Rate [facility] P [place] [facility] P-R Interval [facility] Q-T Interval [facility] Q-T Interval (corrected) [facility] QRS Duration [facility] QTC Calculation (Bezet) [facility] R [place] [facility] T [place] [facility] Ventricular Rate [facility] CT Abdomen and Pelvis W cont rast Tavia 10-19-2023 IMPRESSION: 1. No acute abnormalities in the abdomen or pelvis. 2. Hepatic steatosis with mild enlargement of the left lobe and the caudate lobe. 3. Small right simple renal cyst with a proteinaceous/hemorrha gic cyst in the midpole right kidney. 4. Small faint enhancing focus in the uterine body could represent a small fibroid. No suspicious adnexal mass or pelvic free fluid. 5. Nonobstructive bowel gas pattern with no gross free air. 6. Internal fixation of the left sacroiliac joint 7. Rugal fold thickening and prominence in the gastric fundus and body could represent mild gastritis. This appears stable since the prior exam. Please correlate with upper GI symptoms OLOGY EXAM: CT ABDOMEN/PELVIS WITH CONTRAST, 10/19/2023 10:20 AM COMPARISON: CT abdomen and pelvis study dated February 10, 2018 CLINICAL INDICATIONS: LUQ abdominal pain; Hx CLL w/splenomegaly that resolved, now with LUQ pain and emesis with solid food; R10.12:LUQ abdominal pain TECHNIQUE: CT scanning was performed of the abdomen and pelvis following the administration of intravenous contrast. PROTOCOL: Standard. CONTRAST: iohexol (OMNIPAQUE) 350 MG/ML injection 1-171 mL; Route of Administration: Intravenous; Dose: 110 mL. FINDINGS: Lung Bases: Visualized lung bases reveal no definite focal abnormalities in the lower lobes. No pleural or pericardial effusion. Slight thickening along the distal esophagus. No obvious hiatal hernia. Atherosclerotic calcifications in the distal thoracic aorta ABDOMEN Liver: Liver shows some enlargement of the left lobe and the caudate lobe. There is diffuse hepatic steatosis. Outlines of the liver are largely smooth. There are no suspicious enhancing focal liver lesions. Portal vein is patent. No intrahepatic biliary ductal dilatation. No perihepatic fluid or collection is seen Biliary/Gallbladder: The gallbladder is partly distended without evidence of radiopaque stones. The biliary tree is nondilated. Spleen: Spleen is normal in size and CT density. No suspicious focal splenic lesions. Splenic vascular pedicle is patent with no perisplenic fluid or collections. Pancreas: Pancreas shows no discrete focal lesions or ductal dilatation. Volume loss in the body and tail of the pancreas. There are no peripancreatic inflammatory changes or fluid collections. Adrenals: Adrenal glands are unremarkable. Kidneys: Kidneys show symmetric enhancement with no calculus or hydronephrosis. Slightly lobulated outlines to the kidneys bilaterally. Small hypodense cyst in the anterior midpole of the right kidney measuring 1.4 cm in size likely a simple cyst. Slightly hyperdense cyst in the midpole of the right kidney measures up to 9 mm in size likely a small proteinaceous/hemorrha gic cyst. No enhancing renal mass lesions.. No perinephric or retroperitoneal fluid collections. The ureters are nondilated Retroperitoneal/Vascul ature: Abdominal aorta and its branches are patent. Mesenteric vasculature is also patent. Atherosclerotic changes with wall calcifications in the abdominal aorta and the iliac arteries. There are no discrete enlarged abdominal or retroperitoneal lymph nodes. No free fluid is noted within the abdomen or pelvis. There are no loculated collections or abscess. Iliopsoas muscles are symmetric. Gastrointestinal/Mesen tom: Stomach is partly distended with oral contrast limiting detailed evaluation. Mild diffuse rugal fold thickening and prominence in the gastric fundus and body which could be related to mild gastritis or may be secondary to peristalsis. The small bowel loops are nonobstructed. No bladder diverticulum in the third part of the duodenum. No mesenteric mass or adenopathy is seen. Fatty hypertrophy of the ileocecal valve. Appendix: Appendix is not clearly visualized Fecal residue is noted within the colonic loops limiting detailed evaluation. No gross colonic mass or paracolic inflammation is seen. No definite diverticular disease or paracolic collections. No gross free air or pneumatosis PELVIS Bladder: The bladder is normal. Genital: Uterus shows heterogeneous enhancement. Small faint enhancing focus in the anterior uterine body measures up to 1 cm in size which could represent a small fibroid. No suspicious adnexal mass or pelvic free fluid. No discrete enlarged pelvic or inguinal nodes by size criteria. Scattered vascular calcifications in the pelvis. Soft tissues of the abdominal wall reveal no focal abnormalities Bony Structures: Visualized osseous structures reveal degenerative changes in the visualized spine and the pelvic bones. Internal fixation of the left sacroiliac joint. No aggressive bony lesions seen on this study.. RADIOLOGY Cameron Damico MBBS - 10/19/2023 EXAM: CT ABDOMEN/PELVIS WITH CONTRAST, 10/19/2023 10:20 AM COMPARISON: CT abdomen and pelvis study dated February 10, 2018 CLINICAL INDICATIONS: LUQ abdominal pain; Hx CLL w/splenomegaly that resolved, now with LUQ pain and emesis with solid food; R10.12:LUQ abdominal pain TECHNIQUE: CT scanning was performed of the abdomen and pelvis following the administration of intravenous contrast. PROTOCOL: Standard. CONTRAST: iohexol (OMNIPAQUE) 350 MG/ML injection 1-171 mL; Route of Administration: Intravenous; Dose: 110 mL. FINDINGS: Lung Bases: Visualized lung bases reveal no definite focal abnormalities in the lower lobes. No pleural or pericardial effusion. Slight thickening along the distal esophagus. No obvious hiatal hernia. Atherosclerotic calcifications in the distal thoracic aorta ABDOMEN Liver: Liver shows some enlargement of the left lobe and the caudate lobe. There is diffuse hepatic steatosis. Outlines of the liver are largely smooth. There are no suspicious enhancing focal liver lesions. Portal vein is patent. No intrahepatic biliary ductal dilatation. No perihepatic fluid or collection is seen Biliary/Gallbladder: The gallbladder is partly distended without evidence of radiopaque stones. The biliary tree is nondilated. Spleen: Spleen is normal in size and CT density. No suspicious focal splenic lesions. Splenic vascular pedicle is patent with no perisplenic fluid or collections. Pancreas: Pancreas shows no discrete focal lesions or ductal dilatation. Volume loss in the body and tail of the pancreas. There are no peripancreatic inflammatory changes or fluid collections. Adrenals: Adrenal glands are unremarkable. Kidneys: Kidneys show symmetric enhancement with no calculus or hydronephrosis. Slightly lobulated outlines to the kidneys bilaterally. Small hypodense cyst in the anterior midpole of the right kidney measuring 1.4 cm in size likely a simple cyst. Slightly hyperdense cyst in the midpole of the right kidney measures up to 9 mm in size likely a small proteinaceous/hemorrha gic cyst. No enhancing renal mass lesions.. No perinephric or retroperitoneal fluid collections. The ureters are nondilated Retroperitoneal/Vascul ature: Abdominal aorta and its branches are patent. Mesenteric vasculature is also patent. Atherosclerotic changes with wall calcifications in the abdominal aorta and the iliac arteries. There are no discrete enlarged abdominal or retroperitoneal lymph nodes. No free fluid is noted within the abdomen or pelvis. There are no loculated collections or abscess. Iliopsoas muscles are symmetric. Gastrointestinal/Mesen tom: Stomach is partly distended with oral contrast limiting detailed evaluation. Mild diffuse rugal fold thickening and prominence in the gastric fundus and body which could be related to mild gastritis or may be secondary to peristalsis. The small bowel loops are nonobstructed. No bladder diverticulum in the third part of the duodenum. No mesenteric mass or adenopathy is seen. Fatty hypertrophy of the ileocecal valve. Appendix: Appendix is not clearly visualized Fecal residue is noted within the colonic loops limiting detailed evaluation. No gross colonic mass or paracolic inflammation is seen. No definite diverticular disease or paracolic collections. No gross free air or pneumatosis PELVIS Bladder: The bladder is normal. Genital: Uterus shows heterogeneous enhancement. Small faint enhancing focus in the anterior uterine body measures up to 1 cm in size which could represent a small fibroid. No suspicious adnexal mass or pelvic free fluid. No discrete enlarged pelvic or inguinal nodes by size criteria. Scattered vascular calcifications in the pelvis. Soft tissues of the abdominal wall reveal no focal abnormalities Bony Structures: Visualized osseous structures reveal degenerative changes in the visualized spine and the pelvic bones. Internal fixation of the left sacroiliac joint. No aggressive bony lesions seen on this study.. IMPRESSION IMPRESSION: 1. No acute abnormalities in the abdomen or pelvis. 2. Hepatic steatosis with mild enlargement of the left lobe and the caudate lobe. 3. Small right simple renal cyst with a proteinaceous/hemorrha gic cyst in the midpole right kidney. 4. Small faint enhancing focus in the uterine body could represent a small fibroid. No suspicious adnexal mass or pelvic free fluid. 5. Nonobstructive bowel gas pattern with no gross free air. 6. Internal fixation of the left sacroiliac joint 7. Rugal fold thickening and prominence in the gastric fundus and body could represent mild gastritis. This appears stable since the prior exam. Please correlate with upper GI symptoms [facility] W cont rast IVOrdered By: Cameron Damico on 10-19-2023 [facility] Work Phone: LARGE JOINT/BURSA INJECTION AND/OR ASPIRATIONon 09-26-2023 Chelsea Olivarez 09/26/2023 1:36 PM LARGE JOINT/BURSA INJECTION AND/OR ASPIRATION Date/Time: 09/26/2023 12:30 PM Performed by: Garry Stephens MD Authorized by: Garry Stephens MD Supporting Documentation Indications: pain and osteoarthritis Procedure Details: Location: sacroiliac - R sacroiliac joint Local Anesthetic: bupivacaine 0.5% and lidocaine 1% Total Local Anesthetic: 4 mLs Guidance: ultrasound Ultrasound probe size: 4 mHz curvilinear Images were saved electronically. Needle size: 22 G Needle Length: 4.0 inch Approach: posterior Medication Verification: I have personally verified and performed the final check of the medication(s) used in this procedure prior to administration. The following items were included during the verification process for medication(s) administered: drug name, strength, volume, expiration, physical integrity and appearance of the medication(s). Medications administered: 1 mL BUPivacaine 0.5 %; 2 mL triamcinolone 40 MG/ML; 4 mL Lidocaine 10 mg/mL; 5 mL Sodium chloride (PF) 0.9 %; 4 mg dexAMETHasone 4 MG/ML Patient tolerance: patient tolerated the procedure well with no immediate complications Comments Medical Decision Making At today's visit I reviewed the history, physical examination, and previous pertinent imaging. We weighed the options of whether or not to proceed with an injection today based off of these findings and discussed alternatives. After this discussion, I felt that the injection was indicated and we elected to proceed. This evaluation and management service was a separate and identifiable service apart from the injection. Pre-Procedure Details The attending physician was present for the entire procedure. Consent: Consent was obtained prior to the procedure after discussion of the risks, benefits and alternatives, and expected outcomes were discussed with the patient. The possibilities of reaction to medication, bleeding, infection, the need for additional procedures, failure to diagnosis a condition, and creating a complication requiring operation were discussed with the patient. The patient concurred with the proposed plan, giving consent. Preparation: Patient was prepped in the usual sterile fashion. The patient was prepped with Chloraprep. [facility] Radiology Study observation (narrative) [facility] US Unspecified body regionon 09-26-2023 Image Storage This order is to facilitate the storage of the image. [facility] CBC AND ELECTRONIC DIFFon Basophils (Bld) [#/Vol] 0.05 10*3/uL 0.00 - 0.15 K/uL [facility] Basophils/100 WBC (Bld) 0.6 % [facility] Differential cell count method Nom (Bld) Electronic Differential [facility] Eosinophils (Bld) [#/Vol] K/uL 0.00 - 0.42 K/uL [facility] Eosinophils/100 WBC (Bld) 0.1 % [facility] Erythrocyte distribution width (RBC) [Ratio] 12.9 % 10.8 - 14.9 % [facility] Hematocrit (Bld) [Volume fraction] 38.0 % 34.9 - 44.3 % [facility] Hemoglobin (Bld) [Mass/Vol] 12.8 g/dL 11.4 - 15.2 g/dL [facility] Immature granulocytes (Bld) [#/Vol] K/uL NINF - 0.08 K/uL [facility] Immature granulocytes/100 WBC (Bld) 0.1 % [facility] Interpretation and review of laboratory results Abnormal [facility] Lymphocytes (Bld) [#/Vol] 1.83 10*3/uL 1.16 - 3.51 K/uL [facility] Lymphocytes/100 WBC (Bld) 23.7 % [facility] MCH (RBC) [Entitic mass] 32.6 pg 25.9 - 33.9 pg [facility] MCHC (RBC) [Mass/Vol] 33.7 g/dL 31.4 - 35.9 g/dL [facility] MCV (RBC) [Entitic vol] 96.7 fL 79.6 - 97.7 fL [facility] Monocytes (Bld) [#/Vol] 1.12 10*3/uL High 0.22 - 0.87 K/uL [facility] Monocytes/100 WBC (Bld) 14.5 % [facility] Neutrophils (Bld) [#/Vol] 4.70 10*3/uL 1.64 - 7.28 K/uL [facility] Nucleated RBC/100 WBC (Bld) [Ratio] 0.0 % [facility] Platelet mean volume (Bld) [Entitic vol] 10.3 fL 8.5 - 12.2 fL [facility] Platelets (Bld) [#/Vol] 220 10*3/uL 150 - 393 K/uL [facility] RBC (Bld) [#/Vol] 3.93 10*6/uL [facility]/100 WBC (Bld) 61.0 % [facility] WBC (Bld) [#/Vol] 7.72 10*3/uL 3.99 - 11. 19 K/uL [facility] COMPREHENSIVE METABOLIC PANE Ethan 09-21-2023 Albumin [Mass/Vol] 4.1 g/dL 3.5 - 5.0 g/dL [facility] ALP [Catalytic activity/Vol] 41 U/L 32 - 126 U/L [facility] ALT [Catalytic activity/Vol] 17 U/L 9 - 48 U/L [facility] Anion gap [Moles/Vol] 15 mmol/L 7 - 17 mmol/L [facility] AST [Catalytic activity/Vol] 23 U/L 10 - 39 U/L [facility] Bilirubin [Mass/Vol] 0.4 mg/dL NINF - 1.5 mg/dL [facility] Calcium [Mass/Vol] 10.0 mg/dL 8.6 - 10. 5 mg/dL [facility] Chloride [Moles/Vol] 96 mmol/L Low 98 - 10 8 mmol/L [facility] CO2 [Moles/Vol] 27 mmol/L 21 - 31 mmol/L [facility] Creatinine [Mass/Vol] 1.03 mg/dL 0.50 - 1.20 mg/dL [facility] eGFR, CKD-EPI, Female 60 - PINF [facility] Comment on above: Reported eGFR is bas ed on the CKD-EPI 2020 equation using creatinine, age, and sex. Glucose [Mass/Vol] 122 mg/dL High 70 - 99 mg/dL [facility] Interpretation and review of laboratory results Abnormal [facility] Osmolality Calc [Osmolality] 285 [facility] Potassium [Moles/Vol] 4.7 mmol/L 3.5 - 5.0 mmol/L [facility] Protein [Mass/Vol] 7.0 g/dL 6.4 - 8.3 g/dL [facility] Sodium [Moles/Vol] 133 mmol/L Low 135 - 145 mmol/L [facility] Urea nitrogen [Mass/Vol] 20 mg/dL 7 - 25 mg/dL [facility] Urea nitrogen/Creatinine [Mass ratio] 19 mg/mg [facility] LACTATE DEHYDROGENASEon 08-25 Interpretation and review of laboratory results Normal [facility] LDH Lactate to pyruvate reaction [Catalytic activity/Vol] 149 U/L 100 - 190 U/L [facility] No Panel Informationon 09-21 [facility] Basophil percentageOrdered B y: Monse Shipley on 08-29-2023 Chloride [Moles/Vol] 103 mmol/L 98-107 [facility] Glucose [Mass/Vol] 194 mg/dL 74-106 [facility] Comment on above: Fasting Glucose resu lt greater than or equal to 126 mg/dL suggests DIABETES MELLITUS per A.D.A. criteria. Potassium [Moles/Vol] 3.4 mmol/L 3.5-5.1 [facility] Sodium [Moles/Vol] 140 mmol/L 136-145 [facility] WBC (Bld) [#/Vol] 5.7 10*3/uL 4.4-11.0 [facility] Blood erythrocytes count (nu mber/volume)Ordered By: Monse Shipley on 08-29-2023 RBC (Bld) [#/Vol] 3.80 10*6/uL 4.2-5.4 [facility] Blood hemoglobin measurement (mass/volume)Ordered By: Monse Shipley on 08-29-2023 Hemoglobin (Bld) [Mass/Vol] 12.2 g/dL 12.0-15.0 [facility] Blood platelet mean volumeOr dered By: Monse Shipley on 08-29-2023 Platelet mean volume (Bld) [Entitic vol] 10.7 fL 6.2-12.0 [facility] Determination of erythrocyte mean corpuscular volume (MCV)Ordered By: Monse hSipley on 08-29-2023 MCV (RBC) [Entitic vol] 99.7 fL 81-99 [facility] Erythrocyte sedimentation ra teOrdered By: Monse Shipley on 08-29-2023 ESR (Bld) [Velocity] 17 mm/h 0-30 [facility] Hematocrit Auto (Bld) [Volum e fraction]Ordered By: Monse Shipley on 08-29-2023 Hematocrit (Bld) [Volume fraction] 37.9 % 37-47 [facility] Laboratory - Chemistry and C hemistry - challengeOrdered By: Monse Shipley on 08-29-2023 CO2 [Moles/Vol] 28.0 mmol/L 21.0-32.0 [facility] Urea nitrogen/Creatinine [Mass ratio] 17.2 mg/mg 10-20 [facility] Laboratory - Hematology and Cell countsOrdered By: Monse Shipley on 08-29-2023 Erythrocyte distribution width (RBC) [Entitic vol] 47.7 fL 35.1-43.9 [facility] Erythrocyte distribution width (RBC) [Ratio] 13.2 % 11.6-14.6 [facility] MCH (RBC) [Entitic mass] 32.1 pg 27.0-32.0 [facility] MCHC Auto (RBC) [Mass/Vol]Or dered By: Monse Shipley on 08-29-2023 MCHC (RBC) [Mass/Vol] 32.2 g/dL 32-36 [facility] No Panel InformationOrdered By: Monse Shipley on 08-29-2023 Estimated GFR (MDRD) Amer 72 mL/min >60 [facility] Comment on above: GFR Calc Estimated GFR (MDRD) Non-Af Amer 60 mL/min >60 [facility] Comment on above: Non- GFR Calc Platelets bldOrdered By: Laura Shipley on 08-29-2023 Platelets (Bld) [#/Vol] 194 10*3/uL 150-450 [facility] Serum or plasma C reactive p rotein measurement (mass/volume)Ordered By: Monse Shipley on 08-29-2023 CRP [Mass/Vol] 9.20 mg/L 0.0-3.0 [facility] Comment on above: C-Reactive Protein ( CRP) provides useful information for thediagnosis, therapy and monitoring of inflammatory processesand associated diseases. For the evaluation of Relative Riskfor Cardiovascular Disease, a High Sensitivity CRP (HSCRP)should be ordered. Serum or plasma calcium karena urement (mass/volume)Ordered By: Monse Shipley on 08-29-2023 Calcium [Mass/Vol] 9.0 mg/dL 8.5-10.1 [facility] Serum or plasma creatinine m easurement (mass/volume)Ordered By: Monse Shipley on 08-29-2023 Creatinine [Mass/Vol] 0.99 mg/dL 0.55-1.02 [facility] Comment on above: The validity of the calculated GFR & GFRAA in patients over 70 years has not been determined. Clinical correlation is essential. Serum or plasma urea nitroge n measurement (mass/volume)Ordered By: Monse Shipley on 08-29-2023 Urea nitrogen [Mass/Vol] 17 mg/dL 7-18 [facility] Thin prep Papanicolaou smear with manual screeningOrdered By: Monse Shipley on 08-29-2023 Thin prep Papanicolaou smear with manual screening 9 5-15 [facility] Basophil percentageOrdered B y: Monse Shipley on 08-25-2023 Bilirubin [Mass/Vol] 0.40 mg/dL 0.20-1.00 [facility] Comment on above: For patients on eltr ombopag therapy, use of Dimension [place] TBIL is not recommended. Chloride [Moles/Vol] 103 mmol/L 98-107 [facility] Glucose [Mass/Vol] 119 mg/dL 74-106 [facility] Comment on above: Fasting Glucose resu lt from 100 to 125 mg/dL suggests IMPAIRED HOMEOSTASIS per A.D.A. criteria. Potassium [Moles/Vol] 4.3 mmol/L 3.5-5.1 [facility] Protein [Mass/Vol] 7.1 g/dL 6.4-8.2 [facility] Sodium [Moles/Vol] 137 mmol/L 136-145 [facility] WBC (Bld) [#/Vol] 6.2 10*3/uL 4.4-11.0 [facility] Blood erythrocytes count (nu mber/volume)Ordered By: Monse Shipley on 08-25-2023 RBC (Bld) [#/Vol] 3.84 10*6/uL 4.2-5.4 [facility] Blood hemoglobin measurement (mass/volume)Ordered By: Monse Shipley on 08-25-2023 Hemoglobin (Bld) [Mass/Vol] 12.4 g/dL 12.0-15.0 [facility] Blood platelet mean volumeOr dered By: Monse Shipley on 08-25-2023 Platelet mean volume (Bld) [Entitic vol] 10.6 fL 6.2-12.0 [facility] Determination of erythrocyte mean corpuscular volume (MCV)Ordered By: Monse Shipley on 08-25-2023 MCV (RBC) [Entitic vol] 97.7 fL 81-99 [facility] Hematocrit Auto (Bld) [Volum e fraction]Ordered By: Monse Shipley on 08-25-2023 Hematocrit (Bld) [Volume fraction] 37.5 % 37-47 [facility] Laboratory - Chemistry and C hemistry - challengeOrdered By: Monse Shipley on 08-25-2023 ALP [Catalytic activity/Vol] 55 U/L 45-117 [facility] ALT [Catalytic activity/Vol] 29 U/L 13-56 [facility] CO2 [Moles/Vol] 27.0 mmol/L 21.0-32.0 [facility] Globulin (S) [Mass/Vol] 3.7 g/dL 2.2-4.2 [facility] Urea nitrogen/Creatinine [Mass ratio] 14.0 mg/mg 10-20 [facility] Laboratory - Hematology and Cell countsOrdered By: Monse Shipley on 08-25-2023 Erythrocyte distribution width (RBC) [Entitic vol] 46.0 fL 35.1-43.9 [facility] Erythrocyte distribution width (RBC) [Ratio] 12.9 % 11.6-14.6 [facility] MCH (RBC) [Entitic mass] 32.3 pg 27.0-32.0 [facility] MCHC Auto (RBC) [Mass/Vol]Or dered By: Monse Shipley on 08-25-2023 MCHC (RBC) [Mass/Vol] 33.1 g/dL 32-36 [facility] No Panel InformationOrdered By: Monse Shipley on 08-25-2023 Estimated GFR (MDRD) Amer 71 mL/min >60 [facility] Comment on above: GFR Calc Estimated GFR (MDRD) Non-Af Amer 59 mL/min >60 [facility] Comment on above: Non- GFR Calc Platelets bldOrdered By: Laura Shipley on 08-25-2023 Platelets (Bld) [#/Vol] 228 10*3/uL 150-450 [facility] Serum or plasma C reactive p rotein measurement (mass/volume)Ordered By: Monse Shipley on 08-25-2023 CRP [Mass/Vol] 8.67 mg/L 0.0-3.0 [facility] Comment on above: C-Reactive Protein ( CRP) provides useful information for thediagnosis, therapy and monitoring of inflammatory processesand associated diseases. For the evaluation of Relative Riskfor Cardiovascular Disease, a High Sensitivity CRP (HSCRP)should be ordered. Serum or plasma albumin karena urement (mass/volume)Ordered By: Monse Shipley on 08-25-2023 Albumin [Mass/Vol] 3.4 g/dL 3.2-5.0 [facility] Serum or plasma albumin/glob ulin mass ratioOrdered By: Monse Shipley on 08-25-2023 Albumin/Globulin [Mass ratio] 0.9 {ratio} 0.9-2.4 [facility] Serum or plasma calcium karena urement (mass/volume)Ordered By: Monse Shipley on 08-25-2023 Calcium [Mass/Vol] 9.1 mg/dL 8.5-10.1 [facility] Serum or plasma creatinine m easurement (mass/volume)Ordered By: Monse Shipley on 08-25-2023 Creatinine [Mass/Vol] 1.00 mg/dL 0.55-1.02 [facility] Comment on above: The validity of the calculated GFR & GFRAA in patients over 70 years has not been determined. Clinical correlation is essential. Serum or plasma urea nitroge n measurement (mass/volume)Ordered By: Monse Shipley on 08-25-2023 Urea nitrogen [Mass/Vol] 14 mg/dL 7-18 [facility] Thin prep Papanicolaou smear with manual screeningOrdered By: Monse Shipley on 08-25-2023 Thin prep Papanicolaou smear with manual screening 20 U/L 15-37 [facility] Thin prep Papanicolaou smear with manual screening 7 5-15 [facility] Basophil percentageOrdered B y: Monse Shipley on 08-18-2023 Bilirubin [Mass/Vol] 0.30 mg/dL 0.20-1.00 [facility] Comment on above: For patients on eltr ombopag therapy, use of Dimension [place] TBIL is not recommended. Chloride [Moles/Vol] 105 mmol/L 98-107 [facility] Glucose [Mass/Vol] 111 mg/dL 74-106 [facility] Comment on above: Fasting Glucose resu lt from 100 to 125 mg/dL suggests IMPAIRED HOMEOSTASIS per A.D.A. criteria. Potassium [Moles/Vol] 4.1 mmol/L 3.5-5.1 [facility] Protein [Mass/Vol] 6.7 g/dL 6.4-8.2 [facility] Sodium [Moles/Vol] 139 mmol/L 136-145 [facility] WBC (Bld) [#/Vol] 6.0 10*3/uL 4.4-11.0 [facility] Blood erythrocytes count (nu mber/volume)Ordered By: Monse Shipley on 08-18-2023 RBC (Bld) [#/Vol] 3.67 10*6/uL 4.2-5.4 [facility] Blood hemoglobin measurement (mass/volume)Ordered By: Monse Shipley on 08-18-2023 Hemoglobin (Bld) [Mass/Vol] 11.7 g/dL 12.0-15.0 [facility] Blood platelet mean volumeOr dered By: Monse Shipley on 08-18-2023 Platelet mean volume (Bld) [Entitic vol] 10.4 fL 6.2-12.0 [facility] CBC-Complete Blood Cnt No Di ffon 08-18-2023 Erythrocyte distribution width (RBC) [Ratio] 13.0 % Normal 11.6-14.6 [facility] Comment on above: Performed By: #### L 500.4050, L100.0500, [id number] #### [facility] Laboratory [address] [place], [address] Hematocrit (Bld) [Volume fraction] 36.3 % Low 37-47 [facility] Comment on above: Performed By: #### L 500.4050, L100.0500, [id number] #### [facility] [address] [place], [address] Hemoglobin (Bld) [Mass/Vol] 11.7 g/dL Low 12.0-15.0 [facility] Comment on above: Performed By: #### L 500.4050, L100.0500, [id number] #### [facility] [address] [place], [address] MCH (RBC) [Entitic mass] 31.9 pg Normal 27.0-32.0 [facility] Comment on above: Performed By: #### L 500.4050, L100.0500, [id number] #### [facility] [address] [place], [address] MCHC (RBC) [Mass/Vol] 32.2 g/dL Normal 32-36 [facility] Comment on above: Performed By: #### L 500.4050, L100.0500, [id number] #### [facility] [address] [place], [address] MCV (RBC) [Entitic vol] 98.9 fL Normal 81-99 [facility] Comment on above: Performed By: #### L 500.4050, L100.0500, [id number] #### [facility] [address] [place], [address] Platelet mean volume (Bld) [Entitic vol] 10.4 fL Normal 6.2-12.0 [facility] Comment on above: Performed By: #### L 500.4050, L100.0500, [id number] #### [facility] [address] [place], [address] Platelets (Bld) [#/Vol] 314 10*3/uL Normal 150-450 [facility] Comment on above: Performed By: #### L 500.4050, L100.0500, [id number] #### [facility] [address] [place], [address] RBC (Bld) [#/Vol] 3.67 10*6/uL Low 4.2-5.4 [facility] Comment on above: Performed By: #### L 500.4050, L100.0500, [id number] #### [facility] [address] [place], [address] RDW SD 46.1 fl High 35.1-43.9 [facility] Comment on above: Performed By: #### L 500.4050, L100.0500, [id number] #### [facility] [address] [place], [address] WBC (Bld) [#/Vol] 6.0 10*3/uL Normal 4.4-11.0 [facility] Comment on above: Performed By: #### L 500.4050, L100.0500, [id number] #### [facility] [address] [place], [address] CRPon 08-18-2023 C-REACTIVE PROT 15.50 mg/L High 0.0-3.0 [facility] Comment on above: Result Comment: C-Re active Protein (CRP) provides useful information for the diagnosis, therapy and monitoring of inflammatory processes and associated diseases. For the evaluation of Relative Risk for Cardiovascular Disease, a High Sensitivity CRP (HSCRP) should be ordered. Performed By: #### L 500.4050, L100.0500, [id number] #### [facility] [address] [place], [address] Comprehensive Metabolic Prof ilon 08-18-2023 Albumin [Mass/Vol] 3.1 g/dL Low 3.2-5.0 [facility] Comment on above: Performed By: #### L 500.4050, L100.0500, [id number] #### [facility] [address] [place], [address] Albumin/Globulin [Mass ratio] 0.9 {ratio} Normal 0.9-2.4 [facility] Comment on above: Performed By: #### L 500.4050, L100.0500, [id number] #### [facility] [address] [place], [address] ALK P 55 U/L Normal 45-117 [facility] Comment on above: Performed By: #### L 500.4050, L100.0500, [id number] #### [facility] [address] [place], [address] ALT [Catalytic activity/Vol] 27 U/L Normal 13-56 [facility] Comment on above: Performed By: #### L 500.4050, L100.0500, [id number] #### [facility] [address] [place], [address] AST [Catalytic activity/Vol] 17 U/L Normal 15-37 [facility] Comment on above: Performed By: #### L 500.4050, L100.0500, [id number] #### [facility] [address] [place], [address] Bilirubin [Mass/Vol] 0.30 mg/dL Normal 0.20-1.00 [facility] Comment on above: Result Comment: For patients on eltrombopag therapy, use of Dimension [place] TBIL is not recommended. Performed By: #### L 500.4050, L100.0500, [id number] #### [facility] [address] [place], [address] BUN/CRE 18.1 RATIO Normal 10-20 [facility] Comment on above: Performed By: #### L 500.4050, L100.0500, [id number] #### [facility] [address] [place], [address] CA,Total 9.0 mg/dL Normal 8.5-10.1 [facility] Comment on above: Performed By: #### L 500.4050, L100.0500, [id number] #### [facility] [address] [place], [address] Chloride [Moles/Vol] 105 mmol/L Normal 98-107 [facility] Comment on above: Performed By: #### L 500.4050, L100.0500, [id number] #### [facility] [address] [place], [address] CO2 [Moles/Vol] 28.0 mmol/L Normal 21.0-32.0 [facility] Comment on above: Performed By: #### L 500.4050, L100.0500, [id number] #### [facility] [address] [place], [address] Creatinine [Mass/Vol] 0.94 mg/dL Normal 0.55-1.02 [facility] Comment on above: Result Comment: The validity of the calculated GFR GFRAA in patients over 70 years has not been determined. Clinical correlation is essential. Performed By: #### L 500.4050, L100.0500, [id number] #### [facility] [address] [place], [address] ECRCL 53.69 ml/min Normal [facility] Comment on above: Performed By: #### L 500.4050, L100.0500, [id number] #### [facility] [address] [place], [address] EST GFR - AA 77 mL/min Normal >60 [facility] Comment on above: Result Comment: Afri can [place] GFR Calc Performed By: #### L 500.4050, L100.0500, [id number] #### [facility] Laboratory [address] [place], [address] GAP 6 Normal 5-15 [facility] Comment on above: Performed By: #### L 500.4050, L100.0500, L501.6710 #### [facility] Laboratory [address] [place], [address] GFR/1.73 sq M.predicted among non-blacks MDRD (S/P/Bld) [Vol rate/Area] 63 mL/min/{1.73_m2} Normal >60 [facility] Comment on above: Result Comment: Non- GFR Calc Performed By: #### L 500.4050, L100.0500, L501.6710 #### [facility] Laboratory [address] [place], [address] Globulin (S) [Mass/Vol] 3.6 g/dL Normal 2.2-4.2 [facility] Comment on above: Performed By: #### L 500.4050, L100.0500, L501.6710 #### [facility] Laboratory [address] [place], [address] Glucose [Mass/Vol] 111 mg/dL High 74-106 [facility] Comment on above: Result Comment: Fast ing Glucose result from 100 to 125 mg/dL suggests IMPAIRED HOMEOSTASIS per A.D.A. criteria. Performed By: #### L 500.4050, L100.0500, L501.6710 #### [facility] Laboratory [address] [place], [address] Potassium [Moles/Vol] 4.1 mmol/L Normal 3.5-5.1 [facility] Comment on above: Performed By: #### L 500.4050, L100.0500, L501.6710 #### [facility] Laboratory [address] [place], [address] Sodium [Moles/Vol] 139 mmol/L Normal 136-145 [facility] Comment on above: Performed By: #### L 500.4050, L100.0500, L501.6710 #### [facility] Laboratory [address] [place], [address] T PROT 6.7 g/dL Normal 6.4-8.2 [facility] Comment on above: Performed By: #### L 500.4050, L100.0500, L501.6710 #### [facility] Laboratory [address] [place], [place], [id number] Urea nitrogen [Mass/Vol] 17 mg/dL Normal 7-18 [facility] Comment on above: Performed By: #### L 500.4050, L100.0500, L501.6710 #### [facility] Laboratory [address] [place], [place], [id number] Determination of erythrocyte mean corpuscular volume (MCV)Ordered By: Monse Shipley on 08-18-2023 MCV (RBC) [Entitic vol] 98.9 fL 81-99 [facility] Hematocrit Auto (Bld) [Volum e fraction]Ordered By: Monse Shipley on 08-18-2023 Hematocrit (Bld) [Volume fraction] 36.3 % 37-47 [facility] Laboratory - Chemistry and C hemistry - challengeOrdered By: Monse Shipley on 08-18-2023 ALP [Catalytic activity/Vol] 55 U/L 45-117 [facility] ALT [Catalytic activity/Vol] 27 U/L 13-56 [facility] CO2 [Moles/Vol] 28.0 mmol/L 21.0-32.0 [facility] Globulin (S) [Mass/Vol] 3.6 g/dL 2.2-4.2 [facility] Urea nitrogen/Creatinine [Mass ratio] 18.1 mg/mg 10-20 [facility] Laboratory - Hematology and Cell countsOrdered By: Monse Shipley on 08-18-2023 Erythrocyte distribution width (RBC) [Entitic vol] 46.1 fL 35.1-43.9 [facility] Erythrocyte distribution width (RBC) [Ratio] 13.0 % 11.6-14.6 [facility] MCH (RBC) [Entitic mass] 31.9 pg 27.0-32.0 [facility] MCHC Auto (RBC) [Mass/Vol]Or dered By: Monse Shipley on 08-18-2023 MCHC (RBC) [Mass/Vol] 32.2 g/dL 32-36 [facility] No Panel InformationOrdered By: Monse Shipley on 08-18-2023 Estimated Creatinine Clearance Calc 53.69 ml/min [facility] Estimated GFR (MDRD) Amer 77 mL/min >60 [facility] Comment on above: GFR Calc Estimated GFR (MDRD) Non-Af Amer 63 mL/min >60 [facility] Comment on above: Non- GFR Calc Platelets bldOrdered By: Laura Shipley on 08-18-2023 Platelets (Bld) [#/Vol] 314 10*3/uL 150-450 [facility] Serum or plasma C reactive p rotein measurement (mass/volume)Ordered By: Monse Shipley on 08-18-2023 CRP [Mass/Vol] 15.50 mg/L 0.0-3.0 [facility] Comment on above: C-Reactive Protein ( CRP) provides useful information for thediagnosis, therapy and monitoring of inflammatory processesand associated diseases. For the evaluation of Relative Riskfor Cardiovascular Disease, a High Sensitivity CRP (HSCRP)should be ordered. Serum or plasma albumin karena urement (mass/volume)Ordered By: Monse Shipley on 08-18-2023 Albumin [Mass/Vol] 3.1 g/dL 3.2-5.0 [facility] Serum or plasma albumin/glob ulin mass ratioOrdered By: Monse Shipley on 08-18-2023 Albumin/Globulin [Mass ratio] 0.9 {ratio} 0.9-2.4 [facility] Serum or plasma calcium karena urement (mass/volume)Ordered By: Monse Shipley on 08-18-2023 Calcium [Mass/Vol] 9.0 mg/dL 8.5-10.1 [facility] Serum or plasma creatinine m easurement (mass/volume)Ordered By: Monse Shipley on 08-18-2023 Creatinine [Mass/Vol] 0.94 mg/dL 0.55-1.02 [facility] Comment on above: The validity of the calculated GFR & GFRAA in patients over 70 years has not been determined. Clinical correlation is essential. Serum or plasma urea nitroge n measurement (mass/volume)Ordered By: Monse Shipley on 08-18-2023 Urea nitrogen [Mass/Vol] 17 mg/dL 7-18 [facility] Thin prep Papanicolaou smear with manual screeningOrdered By: Monse Shipley on 08-18-2023 Thin prep Papanicolaou smear with manual screening 17 U/L 15-37 [facility] Thin prep Papanicolaou smear with manual screening 6 5-15 [facility] Basophil percentageOrdered B y: Monse Shipley on 08-11-2023 Bilirubin [Mass/Vol] 0.30 mg/dL 0.20-1.00 [facility] Comment on above: For patients on eltr ombopag therapy, use of Dimension [place] TBIL is not recommended. Chloride [Moles/Vol] 106 mmol/L 98-107 [facility] Glucose [Mass/Vol] 101 mg/dL 74-106 [facility] Comment on above: Fasting Glucose resu lt from 100 to 125 mg/dL suggests IMPAIRED HOMEOSTASIS per A.D.A. criteria. Potassium [Moles/Vol] 4.2 mmol/L 3.5-5.1 [facility] Protein [Mass/Vol] 6.9 g/dL 6.4-8.2 [facility] Sodium [Moles/Vol] 139 mmol/L 136-145 [facility] WBC (Bld) [#/Vol] 6.6 10*3/uL 4.4-11.0 [facility] Blood erythrocytes count (nu mber/volume)Ordered By: Monse Shipley on 08-11-2023 RBC (Bld) [#/Vol] 3.65 10*6/uL 4.2-5.4 [facility] Blood hemoglobin measurement (mass/volume)Ordered By: Monse Shipley on 08-11-2023 Hemoglobin (Bld) [Mass/Vol] 12.0 g/dL 12.0-15.0 [facility] Blood platelet mean volumeOr dered By: Monse Shipley on 08-11-2023 Platelet mean volume (Bld) [Entitic vol] 10.1 fL 6.2-12.0 [facility] CBC-Complete Blood Cnt No Di ffon 08-11-2023 Erythrocyte distribution width (RBC) [Ratio] 13.0 % Normal 11.6-14.6 [facility] Comment on above: Performed By: #### L 100.0500, L500.4050, L501.6710 #### [facility] Laboratory [address] [place], [address] Hematocrit (Bld) [Volume fraction] 36.5 % Low 37-47 [facility] Comment on above: Performed By: #### L 100.0500, L500.4050, L501.6710 #### [facility] Laboratory [address] [place], [address] Hemoglobin (Bld) [Mass/Vol] 12.0 g/dL Normal 12.0-15.0 [facility] Comment on above: Performed By: #### L 100.0500, L500.4050, L501.6710 #### [facility] Laboratory [address] [place], [address] MCH (RBC) [Entitic mass] 32.9 pg High 27.0-32.0 [facility] Comment on above: Performed By: #### L 100.0500, L500.4050, L501.6710 #### [facility] Laboratory [address] [place], [address] MCHC (RBC) [Mass/Vol] 32.9 g/dL Normal 32-36 [facility] Comment on above: Performed By: #### L 100.0500, L500.4050, L501.6710 #### [facility] Laboratory [address] [place], [address] MCV (RBC) [Entitic vol] 100.0 fL High 81-99 [facility] Comment on above: Performed By: #### L 100.0500, L500.4050, L501.6710 #### [facility] Laboratory [address] [place], [address] Platelet mean volume (Bld) [Entitic vol] 10.1 fL Normal 6.2-12.0 [facility] Comment on above: Performed By: #### L 100.0500, L500.4050, L501.6710 #### [facility] Laboratory [address] [place], [address] Platelets (Bld) [#/Vol] 240 10*3/uL Normal 150-450 [facility] Comment on above: Performed By: #### L 100.0500, L500.4050, L501.6710 #### [facility] Laboratory [address] [place], [address] RBC (Bld) [#/Vol] 3.65 10*6/uL Low 4.2-5.4 [facility] Comment on above: Performed By: #### L 100.0500, L500.4050, L501.6710 #### [facility] Laboratory [address] [place], [address] RDW SD 47.1 fl High 35.1-43.9 [facility] Comment on above: Performed By: #### L 100.0500, L500.4050, L501.6710 #### [facility] Laboratory [address] [place], [address] WBC (Bld) [#/Vol] 6.6 10*3/uL Normal 4.4-11.0 [facility] Comment on above: Performed By: #### L 100.0500, L500.4050, L501.6710 #### [facility] Laboratory [address] [place], [address] CRPon 08-11-2023 C-REACTIVE PROT 7.19 mg/L High 0.0-3.0 [facility] Comment on above: Result Comment: C-Re active Protein (CRP) provides useful information for the diagnosis, therapy and monitoring of inflammatory processes and associated diseases. For the evaluation of Relative Risk for Cardiovascular Disease, a High Sensitivity CRP (HSCRP) should be ordered. Performed By: #### L 100.0500, L500.4050, L501.6710 #### [facility] Laboratory [address] [place], [address] Comprehensive Metabolic Prof ilon 08-11-2023 Albumin [Mass/Vol] 3.3 g/dL Normal 3.2-5.0 [facility] Comment on above: Performed By: #### L 100.0500, L500.4050, L501.6710 #### [facility] Laboratory [address] [place], [address] Albumin/Globulin [Mass ratio] 0.9 {ratio} Normal 0.9-2.4 [facility] Comment on above: Performed By: #### L 100.0500, L500.4050, L501.6710 #### [facility] Laboratory [address] [place], [address] ALK P 50 U/L Normal 45-117 [facility] Comment on above: Performed By: #### L 100.0500, L500.4050, L501.6710 #### [facility] Laboratory [address] [place], [address] ALT [Catalytic activity/Vol] 25 U/L Normal 13-56 [facility] Comment on above: Performed By: #### L 100.0500, L500.4050, L501.6710 #### [facility] Laboratory [address] [place], [address] AST [Catalytic activity/Vol] 14 U/L Low 15-37 [facility] Comment on above: Performed By: #### L 100.0500, L500.4050, L501.6710 #### [facility] Laboratory [address] [place], [address] Bilirubin [Mass/Vol] 0.30 mg/dL Normal 0.20-1.00 [facility] Comment on above: Result Comment: For patients on eltrombopag therapy, use of Dimension [place] TBIL is not recommended. Performed By: #### L 100.0500, L500.4050, L501.6710 #### [facility] Laboratory [address] [place], [address] BUN/CRE 19.5 RATIO Normal 10-20 [facility] Comment on above: Performed By: #### L 100.0500, L500.4050, L501.6710 #### [facility] Laboratory [address] [place], [address] CA,Total 8.8 mg/dL Normal 8.5-10.1 [facility] Comment on above: Performed By: #### L 100.0500, L500.4050, L501.6710 #### [facility] Laboratory [address] [place], [address] Chloride [Moles/Vol] 106 mmol/L Normal 98-107 [facility] Comment on above: Performed By: #### L 100.0500, L500.4050, L501.6710 #### [facility] Laboratory [address] [place], [address] CO2 [Moles/Vol] 27.0 mmol/L Normal 21.0-32.0 [facility] Comment on above: Performed By: #### L 100.0500, L500.4050, L501.6710 #### [facility] Laboratory [address] [place], [address] Creatinine [Mass/Vol] 0.97 mg/dL Normal 0.55-1.02 [facility] Comment on above: Result Comment: The validity of the calculated GFR GFRAA in patients over 70 years has not been determined. Clinical correlation is essential. Performed By: #### L 100.0500, L500.4050, L501.6710 #### [facility] Laboratory [address] [place], [address] ECRCL 52.03 ml/min Normal [facility] Comment on above: Performed By: #### L 100.0500, L500.4050, L501.6710 #### [facility] Laboratory [address] [place], [address] EST GFR - AA 74 mL/min Normal >60 [facility] Comment on above: Result Comment: Afri can Iraqi GFR Calc Performed By: #### L 100.0500, L500.4050, L501.6710 #### [facility] Laboratory [address] [place], [address] GAP 6 Normal 5-15 [facility] Comment on above: Performed By: #### L 100.0500, L500.4050, L501.6710 #### [facility] Laboratory [address] [place], [address] GFR/1.73 sq M.predicted among non-blacks MDRD (S/P/Bld) [Vol rate/Area] 61 mL/min/{1.73_m2} Normal >60 [facility] Comment on above: Result Comment: Non- GFR Calc Performed By: #### L 100.0500, L500.4050, L501.6710 #### [facility] Laboratory [address] [place], [address] Globulin (S) [Mass/Vol] 3.6 g/dL Normal 2.2-4.2 [facility] Comment on above: Performed By: #### L 100.0500, L500.4050, L501.6710 #### [facility] Laboratory [address] [place], [address] Glucose [Mass/Vol] 101 mg/dL Normal 74-106 [facility] Comment on above: Result Comment: Fast ing Glucose result from 100 to 125 mg/dL suggests IMPAIRED HOMEOSTASIS per A.D.A. criteria. Performed By: #### L 100.0500, L500.4050, L501.6710 #### [facility] Laboratory [address] [place], [address] Potassium [Moles/Vol] 4.2 mmol/L Normal 3.5-5.1 [facility] Comment on above: Performed By: #### L 100.0500, L500.4050, L501.6710 #### [facility] Laboratory [address] [place], [address] Sodium [Moles/Vol] 139 mmol/L Normal 136-145 [facility] Comment on above: Performed By: #### L 100.0500, L500.4050, L501.6710 #### [facility] Laboratory [address] [place], [address] T PROT 6.9 g/dL Normal 6.4-8.2 [facility] Comment on above: Performed By: #### L 100.0500, L500.4050, L501.6710 #### [facility] Laboratory [address] [place], [address] Urea nitrogen [Mass/Vol] 19 mg/dL High 7-18 [facility] Comment on above: Performed By: #### L 100.0500, L500.4050, L501.6710 #### [facility] Laboratory [address] [place], [address] Determination of erythrocyte mean corpuscular volume (MCV)Ordered By: Monse Shipley on 08-11-2023 MCV (RBC) [Entitic vol] 100.0 fL 81-99 [facility] Hematocrit Auto (Bld) [Volum e fraction]Ordered By: Monse Shipley on 08-11-2023 Hematocrit (Bld) [Volume fraction] 36.5 % 37-47 [facility] INCISION AND DRAINAGEon 07-24 Jone Lyons PM 08/11/2023 2:04 PM INCISION AND DRAINAGE Date/Time: 08/11/2023 1:10 PM Performed by: Dawn Uriarte DPM Authorized by: Dawn Uriarte DPM Indications: Type: Abscess Location: Body area: Lower extremity Location details: Left fourth toe Anesthesia: Anesthesia: Digital block Local anesthetic: Lidocaine 1% without epinephrine Anesthetic total (ml): 1 Procedure Details: Scalpel size: 15 Incision depth: Muscle Complexity: Simple Drainage: Purulent Drainage amount: Scant Wound treatment: Wound left open and drain placed Packing material: / in iodoform gauze Dressinx4 sterile gauze and Coban Patient tolerance: Patient tolerated the procedure well with no immediate complications Small piece of tendon like substance came out. Culture taken [facility] Jone Lyons PM - 08/11/2023 1:10 PM EDT Patient Elena Galeano Date: 08/11/2023 Subjective: Elena is here for follow up of left 4th toe infection. She did get her PICC and is getting antibiotics per dr. Shipley. She had her MRI as well. She feels like the toe is filling with fluid again. History She goes to see dr. shipley tomorrow. Waiting on approval for PICC. History She is on updated antibiotics per dr. Shipley. She notes she is doing ok. She is on augmentin History that the toe is improving, but something is happening on the underside of the toe. History of the left 4th toe. She notes that she is on her 2nd round of keflex. She has had an xray a few days ago and some purulence drained from the toe a few days ago. A culture is pending. She notes that the toe has been bad for 3-4 months, but she really has had problems on and off for about a month. She does not remember any kind of trauma. Allergies Allergen Reactions Nsaids Has CKD-3a, and Anemia Current Outpatient Medications Medication Sig Albuterol (Ventolin HFA) 108 (90 Base) MCG/ACT Aero Soln inhaler Inhale 2 puffs every 6 hours as needed for Wheezing. Allopurinol 100 MG tablet Take 1 tablet by mouth daily. apixaban 2.5 MG tablet 2.5 mg 2 tabs, BID- Lot # [id number] - 08.15 buPROPion (Wellbutrin XL) 300 MG tablet XL Take 1 tablet by mouth every morning before breakfast. carveDILOL (Coreg) 12.5 MG tablet Take 1 tablet by mouth 2 times daily with meals. Given by Dr. Calderon Cetirizine 10 MG tablet Take 1 tablet by mouth daily as needed for Allergies. OTC Clindamycin Phos-Benzoyl Perox 1.2-3.75 % Gel Apply 1 Application topically daily. Given by Dermatology Dr. Dejesus Clopidogrel 75 MG tablet Take 1 tablet by mouth daily. cyanocobalamin 1000 MCG tablet Take 1 tablet by mouth daily. Chew 1 tab q daily Evolocumab (Repatha SureClick) 140 MG/ML Solution Auto-injector injection Inject 1 mL under the skin every 14 days. (Patient taking differently: Inject 1 mL under the skin every 14 days. Last dose 06/17/2023) fenofibrate 160 MG tablet Take 1 tablet by mouth daily. Folic acid 1 MG tablet Take 1 tablet by mouth daily. Lisinopril 5 MG tablet Take 1 tablet by mouth daily. Cancel previous refills magnesium oxide 400 (240 Mg) MG Take 1 tablet by mouth daily. OTC Mupirocin 2 % ointment Apply topical TID for 7 days Pantoprazole (Protonix) [address] tablet DR Take 1 tablet by mouth 2 times daily (take before meals). traZODone 100 MG tablet Take 1 tablet by mouth at bedtime. triamterene-hydrochlor othiazide (Dyazide) 37.5-25 MG per capsule Take 1 capsule by mouth daily. Cancel previous refills Past Medical History: Diagnosis Date A-fib Anemia low Fe Arrhythmia Arthritis ASCUS of cervix with negative high risk HPV Asthma not asthma B12 deficiency Carotid stenosis, bilateral-Right 30%, and left 60% Central retinal artery occlusion of left eye CKD (chronic kidney disease) stage 3, GFR 30-59 ml/min-3a patient denies CLL (chronic lymphocytic leukemia) 2011 [id number] on 09-30-2020 Depression Diffuse non-Hodgkin's lymphoma chemotherapy Folate deficiency GERD (gastroesophageal reflux disease) Gout pt denies Hiatal hernia pt denies Hyperglycemia Hyperlipidemia LDL goal <70 Hypertension Hyponatremia Liver disease fatty liver Non-Hodgkin lymphoma 2011 in remission PERCY (obstructive sleep apnea) PVC's (premature ventricular contractions) 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 (blindness) Past Surgical History: Procedure Laterality Date I&D BURSA FOOT Left 07/08/2023 Laterality: Left; Surgeon: Dawn Uriarte DPM; Location: [facility] OR INJECTION NERVE OTHER PERIPHERAL Left 12/16/2022 Laterality: Left; Surgeon: Isreal Sigala MD; Location: [facility] OR GUIDANCE FLUOROSCOPIC NEEDLE OR CATHETER PLACEMENT FOR SPINE INJECTION ADD-ON PX Left 12/16/2022 Laterality: Left; Surgeon: Isreal Sigala MD; Location: [facility] OR SUSPENSION URETHRA/URETHROVESICAL FEMALE OPEN W/ SYNTHETIC MATERIAL (SLING) Midline 08/31/2022 Laterality: Midline; Surgeon: Dariusz Rangel MD; Location: [facility] OR CYSTOURETHROSCOPY W/ DILATION BLADDER Midline 08/31/2022 Laterality: Midline; Surgeon: Dariusz Rangel MD; Location: [facility] OR COLPORRHAPHY ANTEROPOSTERIOR REPAIR CYSTOCELE & RECTOCELE Midline 08/31/2022 Laterality: Midline; Surgeon: Dariusz Rangel MD; Location: [facility] OR ARTHRODESIS SACROILIAC JOINT MINIMALLY INVASIVE W/ TRANSFIXING DEVICE Left 06/17/2022 Laterality: Left; Surgeon: Isreal Sigala MD; Location: [facility] OR GUIDANCE FLUOROSCOPIC NEEDLE OR CATHETER PLACEMENT FOR SPINE INJECTION ADD-ON PX Left 06/17/2022 Laterality: Left; Surgeon: Isreal Sigala MD; Location: [facility] OR EGD W/ DILATION BALLOON N/A 12/01/2021 Laterality: N (more content not included)... [facility] INCISION AND DRAINAGEOrdered By: Dragan Candelaria on 08-11-2023 [facility] Radiology Study observation (narrative) [facility] Laboratory - Chemistry and C hemistry - challengeOrdered By: Monse Shipley on 08-11-2023 ALP [Catalytic activity/Vol] 50 U/L 45-117 [facility] ALT [Catalytic activity/Vol] 25 U/L 13-56 [facility] CO2 [Moles/Vol] 27.0 mmol/L 21.0-32.0 [facility] Globulin (S) [Mass/Vol] 3.6 g/dL 2.2-4.2 [facility] Urea nitrogen/Creatinine [Mass ratio] 19.5 mg/mg 10-20 [facility] Laboratory - Hematology and Cell countsOrdered By: Monse Shipley on 08-11-2023 Erythrocyte distribution width (RBC) [Entitic vol] 47.1 fL 35.1-43.9 [facility] Erythrocyte distribution width (RBC) [Ratio] 13.0 % 11.6-14.6 [facility] MCH (RBC) [Entitic mass] 32.9 pg 27.0-32.0 [facility] MCHC Auto (RBC) [Mass/Vol]Or dered By: Monse Shipley on 08-11-2023 MCHC (RBC) [Mass/Vol] 32.9 g/dL 32-36 [facility] No Panel InformationOrdered By: Monse Shipley on 08-11-2023 Estimated Creatinine Clearance Calc 52.03 ml/min [facility] Estimated GFR (MDRD) Amer 74 mL/min >60 [facility] Comment on above: GFR Calc Estimated GFR (MDRD) Non-Af Amer 61 mL/min >60 [facility] Comment on above: Non- GFR Calc Platelets bldOrdered By: Laura Shipley on 08-11-2023 Platelets (Bld) [#/Vol] 240 10*3/uL 150-450 [facility] Serum or plasma C reactive p rotein measurement (mass/volume)Ordered By: Monse Shipley on 08-11-2023 CRP [Mass/Vol] 7.19 mg/L 0.0-3.0 [facility] Comment on above: C-Reactive Protein ( CRP) provides useful information for thediagnosis, therapy and monitoring of inflammatory processesand associated diseases. For the evaluation of Relative Riskfor Cardiovascular Disease, a High Sensitivity CRP (HSCRP)should be ordered. Serum or plasma albumin karena urement (mass/volume)Ordered By: Monse Shipley on 08-11-2023 Albumin [Mass/Vol] 3.3 g/dL 3.2-5.0 [facility] Serum or plasma albumin/glob ulin mass ratioOrdered By: Monse Shipley on 08-11-2023 Albumin/Globulin [Mass ratio] 0.9 {ratio} 0.9-2.4 [facility] Serum or plasma calcium karena urement (mass/volume)Ordered By: Monse Shipley on 08-11-2023 Calcium [Mass/Vol] 8.8 mg/dL 8.5-10.1 [facility] Serum or plasma creatinine m easurement (mass/volume)Ordered By: Monse Shipley on 08-11-2023 Creatinine [Mass/Vol] 0.97 mg/dL 0.55-1.02 [facility] Comment on above: The validity of the calculated GFR & GFRAA in patients over 70 years has not been determined. Clinical correlation is essential. Serum or plasma urea nitroge n measurement (mass/volume)Ordered By: Monse Shipley on 08-11-2023 Urea nitrogen [Mass/Vol] 19 mg/dL 7-18 [facility] Thin prep Papanicolaou smear with manual screeningOrdered By: Monse Shipley on 08-11-2023 Thin prep Papanicolaou smear with manual screening 14 U/L 15-37 [facility] Thin prep Papanicolaou smear with manual screening 6 5-15 [facility] C REACTIVE PROTEINon 023 CRP [Mass/Vol] 14.5 mg/L High 0 - 10 MG/L [facility] Comment on above: Testing performed at [place], [place] [address] Laboratory - Chemistry and C hemistry - challengeon 08-04-2023 Albumin [Mass/Vol] 4.1 G/dl 3.5 - 5.0 G/dl [facility] Albumin/Globulin [Mass ratio] 1.4 {ratio} [facility] ALP [Catalytic activity/Vol] 41 U/L [facility] ALT [Catalytic activity/Vol] 27 U/L NINF [facility] AST [Catalytic activity/Vol] 33 U/L [facility] Bilirubin [Mass/Vol] 0.5 mg/dL [facility] Calcium [Mass/Vol] 9.4 mg/dL [facility] Chloride [Moles/Vol] 103 mmol/L [facility] Comment on above: Please note: Triglyc eride levels of 600mg/dL or higher may positively bias chloride results by approximately 2.1 mmol CO2 [Moles/Vol] 31 mmol/L [facility] Creatinine [Mass/Vol] 0.80 mg/dL [facility] GFR/1.73 sq M.predicted among blacks MDRD (S/P/Bld) [Vol rate/Area] 93 mL/min/{1.73_m2} ml/min/1.73sq .m [facility] GFR/1.73 sq M.predicted among non-blacks MDRD (S/P/Bld) [Vol rate/Area] 77 mL/min/{1.73_m2} ml/min/1.73sq .m [facility] Glucose post fast [Mass/Vol] 111 mg/dL High [facility] Comment on above: NORMAL <100 mg/dL PREDIABETES 101-126 mg/dL DIABETES 126 mg/dL or higher Potassium [Moles/Vol] 4.0 mmol/L [facility] Protein [Mass/Vol] 7.0 g/dL [facility] Sodium [Moles/Vol] 137 mmol/L [facility] Urea nitrogen [Mass/Vol] 18 mg/dL [facility] Laboratory - Hematology and Cell countson 08-04-2023 Basophils/100 WBC (Bld) 0.5 % 0.0 - 2.0 % [facility] Differential cell count method Nom (Bld) AUTO DIFF % [facility] Eosinophils (Bld) [#/Vol] 0.0 10*3/uL 0.0 - 0.7 10*3/uL [facility] Eosinophils/100 WBC (Bld) 0.3 % 0.0 - 11.0 % [facility] Erythrocyte distribution width (RBC) [Ratio] 13.1 % 11.5 - 14.5 % [facility] Hematocrit (Bld) [Volume fraction] 36.7 % 36.0 - 48.0 % [facility] Hemoglobin (Bld) [Mass/Vol] 12.4 g/dL [facility] Lymphocytes (Bld) [#/Vol] 2.5 10*3/uL 1.2 - 3.4 10*3/uL [facility] Lymphocytes/100 WBC (Bld) 35.3 % 20.0 - 55.0 % [facility] MCH (RBC) [Entitic mass] 33.0 pg 26.0 - 35.0 PG [facility] MCHC (RBC) [Mass/Vol] 33.8 g/dL [facility] MCV (RBC) [Entitic vol] 97.5 fL [facility] Monocytes (Bld) [#/Vol] 0.9 10*3/uL High 0.0 - 0.7 10*3/uL [facility] Monocytes/100 WBC (Bld) 12.6 % High 0.0 - 10.0 % [facility] Neutrophils (Bld) [#/Vol] 3.6 10*3/uL 1.4 - 6.5 10*3/uL [facility] Neutrophils/100 WBC (Bld) 51.3 % 37.0 - 75.0 % [facility] Platelet mean volume (Bld) [Entitic vol] 7.4 fL [facility] Platelets (Bld) [#/Vol] 143 10*3/uL 130 - 400 10*3/uL [facility] RBC (Bld) [#/Vol] 3.77 10*6/uL Low 4.0 - 5.4 10*6/uL [facility] WBC (Bld) [#/Vol] 7.0 10*3/uL 3.6 - 11.0 10*3/uL [facility] No Panel Informationon 08-04 GFR COMMENT Average GFR for 60-6 9 years old = 85. [facility] Comment on above: Chronic Kidney disea se, GFR = <60. Kidney failure, GFR = <15. The GFR estimate is not adjusted for extreme body surface area or acute process, nor has it been validated for women or ethnic groups other than and . Testing performed at [place] [address] Interpretation and review of laboratory results Abnormal [facility] ABSOLUTE BASOPHIL COUNT 0.0 10*3/uL 0.0 - 0.2 10*3/uL [facility] Comment on above: Testing performed at [place] [address] Interpretation and review of laboratory results Abnormal [facility] SEDIMENTATION RATE, AUTOMATE Don 08-04-2023 ESR (Bld) [Velocity] 16 mm/h [facility] Comment on above: Testing performed at [address] INCISION AND DRAINAGEon 06-25 Jone Lyons PM 07/21/2023 8:00 PM INCISION AND DRAINAGE Date/Time: 07/21/2023 1:50 PM Performed by: Dawn Uriarte DPM Authorized by: Dawn Uriarte DPM Indications: Type: Abscess Location: Body area: Lower extremity Location details: Left fourth toe Anesthesia: Anesthesia: Digital block Local anesthetic: Lidocaine 1% without epinephrine Anesthetic total (ml): 2 Procedure Details: Scalpel size: 15 Incision type: Single straight Incision depth: Subcutaneous Complexity: Simple Drainage: Purulent and bloody Drainage amount: Scant Wound treatment: Wound left open Dressinx4 sterile gauze and Coban Patient tolerance: Patient tolerated the procedure well with no immediate complications Culture taken [facility] Radiology Study observation (narrative) [facility] LOWER EXTREMITY INJECTIONon 07-17-2023 Radiology Study observation (narrative) [facility] PT Progress Noteon 3 PT Progress Note No report was sent [facility] Therapy Communicationon 06-24 Therapy Communication Message ELENA GALEANO canceled today . d/t illness. Signatures Electronically signed by : uCca Cervantes PTA; Jul 12 2023 11:19AM EST (Author) [facility] PT Progress Noteon 3 PT Progress Note Therapy Diagnosis Assessed Sacroiliitis (720.2) (M46.1) Plan Goals: Goals set and discussed today. 1. Independent HEP to allow for 50% reduction in max ADL C/C sx ( 06/02) 2-3wks 2. Survey score improvement from 38% to 30% (CHIQUIS) 2-3wks 3. ROM increase to allow for improved ADL stairs (report reduced discomfort with full SFB) 3-4wks 4. Strength increase to allow for improved ADL walking (from gr4- to gr4+ abdominals) 3-4wks Planned interventions include: aquatic therapy, cryotherapy, education/instruction, gait training, home program, hot pack, kinesiotaping, manual therapy, neuromuscular re-education, self care/home management, therapeutic exercises and IASTM/cupping. Frequency and duration: 2 time(s) a week, for 4 weeks, for 8 visits. Potential to achieve rehab goals is fair: chronic syndrome Continue with core strengthening to allow for improved ability to performed prolonged ambulation. JW . Progress with POC, as tolerated. Assessment Patient confirmed name and date of . Patient shows improved TrA contraction with UE/LE exercises. Hip abduction performed in small range of motion with quick motion to improve SI joint stability and reduce joint irritation. Some SI irritation noted with Step Ups, cues to keep TrA intact. Adult Risk Screening There are no spiritual/cultural practices/values/needs that are important to know Initial Fall Risk Screening: ELENA has fallen in the last 6 months. She has fallen due to vision related. Her fall resulted in the following injury: head laceration; stitches. ELENA has a fear of falling. She does not need assistance with sitting, standing or walking. Does not need assistance walking in her home. She does not need assistance in an unfamiliar setting. The patient is not using an assistive device. Fall Risk Screening: Patient is identified as a fall risk. Care Plan: Low Risk: Environmental for all patients and low risk patients: Offer assistance as needed or requested, keep environment free of obstacles, keep floor clean and dry, keep room lighting, wheelchair brakes on, bed/ stretcher locked and in low position if applicable, non-slip footwear if applicable, walker/cane available if needed, side rails up if applicable and pre-emptive toileting. Please identify location of pain: sacral area. Living Will. Living Will: Living will on file. Patient Declined. Healthcare POA: Health care proxy on file. Patient Declined. Declaration of Mental Health Treatment: No mental health treatment on file. Patient Declined. Insurance Insurance reviewed Visit number: 5 Evaluating therapist Miguel Soto PT. M46.1 Subjective Patient reports:. Reports SI pain of 0/10. States that she is noticing being able to walk for longer distances. Home program performing as directed: Partially . No HEP given, patient performs chair yoga on her own. Precautions: Fall Risk: low Pertinent medical HX includes: stroke 11/15; heart arhythmia; L SI fusion last yr (pending R fusion);. Treatment Time in clinic started at 11:30 pm Time in clinic ended at 12:15 pm Total time in clinic is 45 minutes. Total timed code time is 43 minutes. Aquatic Therapy (74920): timed minutes 43, units 3 . TrA contraction review 10 x 5 SIDE STEPPING x 3 laps Heel raises x 20 Squats x 18 P Hip Flexion x 20 P Hip Abd/add x 20 P Alt. december Steps x 20 Step Taps x20 Step Ups x15 P DB ROLLS 30 ea. [employer] sm. blue board x 10 flexion, push/pull UE PADDLES x 20 ea. Open Flex/ext, abd/add, H. abd/add, push/pull 100% UNLOADING 1 noodle Bike 5' Hip abd/add 5' Hang 5' GRADUAL EXIT 2'. 'Scores and Scales' Signatures Electronically signed by : Laya Gomez [employer]ERVATION SALES AGENT; Jul 07 2023 11:26AM EST (Author) Electronically signed by : Gregory Soto, PT; Jul 07 2023 12:37PM EST Normal [facility] PT Progress Noteon 3 PT Progress Note Therapy Diagnosis Assessed Sacroiliitis (720.2) (M46.1) Plan Goals: Goals set and discussed today. 1. Independent HEP to allow for 50% reduction in max ADL C/C sx ( 06/02) 2-3wks 2. Survey score improvement from 38% to 30% (CHIQUIS) 2-3wks 3. ROM increase to allow for improved ADL stairs (report reduced discomfort with full SFB) 3-4wks 4. Strength increase to allow for improved ADL walking (from gr4- to gr4+ abdominals) 3-4wks Planned interventions include: aquatic therapy, cryotherapy, education/instruction, gait training, home program, hot pack, kinesiotaping, manual therapy, neuromuscular re-education, self care/home management, therapeutic exercises and IASTM/cupping. Frequency and duration: 2 time(s) a week, for 4 weeks, for 8 visits. Potential to achieve rehab goals is fair: chronic syndrome Continue with core strengthening to allow for improved ability to perform stair transfers.. JW . Progress with POC, as tolerated. Assessment Patient confirmed name and date of . Patient able to progress reps of respective exercises with good endurance while maintaining fair trunk control. Added Step taps and Step ups today with patient demonstrating poor trunk control at first, improvement noted as reps progresses. No increase in SI joint pain with aquatic exercises. Adult Risk Screening There are no spiritual/cultural practices/values/needs that are important to know Initial Fall Risk Screening: ELENA has fallen in the last 6 months. She has fallen due to vision related. Her fall resulted in the following injury: head laceration; stitches. ELENA has a fear of falling. She does not need assistance with sitting, standing or walking. Does not need assistance walking in her home. She does not need assistance in an unfamiliar setting. The patient is not using an assistive device. Fall Risk Screening: Patient is identified as a fall risk. Care Plan: Low Risk: Environmental for all patients and low risk patients: Offer assistance as needed or requested, keep environment free of obstacles, keep floor clean and dry, keep room lighting, wheelchair brakes on, bed/ stretcher locked and in low position if applicable, non-slip footwear if applicable, walker/cane available if needed, side rails up if applicable and pre-emptive toileting. Please identify location of pain: sacral area. Living Will. Living Will: Living will on file. Patient Declined. Healthcare POA: Health care proxy on file. Patient Declined. Declaration of Mental Health Treatment: No mental health treatment on file. Patient Declined. Insurance Insurance reviewed Visit number: 4 Evaluating therapist Miguel Soto PT. M46.1 Subjective Patient reports:. Patient reports that her R SI is doing pretty well, 0/10 pain levels currently. State that she was able to walk through the store without increased pain yesterday. Home program performing as directed: Partially . No HEP given, patient performs chair yoga on her own. Precautions: Fall Risk: low Pertinent medical HX includes: stroke 11/15; heart arhythmia; L SI fusion last yr (pending R fusion);. Treatment Time in clinic started at 11:30 pm Time in clinic ended at 12:15 pm Total time in clinic is 45 minutes. Total timed code time is 43 minutes. Aquatic Therapy (44154): timed minutes 43, units 3 . TrA contraction review 10 x 5 SIDE STEPPING x 3 laps Heel raises x 20 P Squats x 15 P Hip Flexion x 15 P Hip Abd/add x 15 Alt. december Steps x 20 P Squat x12 P Step Taps x15 N Step Ups x10 N DB ROLLS 30 ea. [employer] sm. blue board x 10 flexion, push/pull UE PADDLES x 20 ea. Open Flex/ext, abd/add, H. abd/add, push/pull 100% UNLOADING 1 noodle Bike 5' Hip abd/add 5' Hang 5' GRADUAL EXIT 2'. 'Scores and Scales' Signatures Electronically signed by : Laya Gomez [employer] SALES AGENT; Jul 05 2023 12:10PM EST (Author) Electronically signed by : Gregory Soto PT; Jul 05 2023 5:01PM EST [facility] Progress Noteon 3 PT Progress Note Therapy Diagnosis Assessed Sacroiliitis (720.2) (M46.1) Plan Goals: Goals set and discussed today. 1. Independent HEP to allow for 50% reduction in max ADL C/C sx ( 06/02) 2-3wks 2. Survey score improvement from 38% to 30% (CHIQUIS) 2-3wks 3. ROM increase to allow for improved ADL stairs (report reduced discomfort with full SFB) 3-4wks 4. Strength increase to allow for improved ADL walking (from gr4- to gr4+ abdominals) 3-4wks Planned interventions include: aquatic therapy, cryotherapy, education/instruction, gait training, home program, hot pack, kinesiotaping, manual therapy, neuromuscular re-education, self care/home management, therapeutic exercises and IASTM/cupping. Frequency and duration: 2 time(s) a week, for 4 weeks, for 8 visits. Potential to achieve rehab goals is fair: chronic syndrome Continue with core strengthening to allow for improved tolerance to prolonged ambulation. JW . Progress with POC, as tolerated. Assessment Patient confirmed name and date of . Patient able to progress reps without difficulty. Fair trunk control noted with UE/LE exercises, moderate cues to keep TrA engaged and to keep trunk from flexion. Added squats today with cues for good form and TrA contraction. Pain relief with unloading. Adult Risk Screening There are no spiritual/cultural practices/values/needs that are important to know Initial Fall Risk Screening: ELENA has fallen in the last 6 months. She has fallen due to vision related. Her fall resulted in the following injury: head laceration; stitches. ELENA has a fear of falling. She does not need assistance with sitting, standing or walking. Does not need assistance walking in her home. She does not need assistance in an unfamiliar setting. The patient is not using an assistive device. Fall Risk Screening: Patient is identified as a fall risk. Care Plan: Low Risk: Environmental for all patients and low risk patients: Offer assistance as needed or requested, keep environment free of obstacles, keep floor clean and dry, keep room lighting, wheelchair brakes on, bed/ stretcher locked and in low position if applicable, non-slip footwear if applicable, walker/cane available if needed, side rails up if applicable and pre-emptive toileting. Please identify location of pain: sacral area. Living Will. Living Will: Living will on file. Patient Declined. Healthcare POA: Health care proxy on file. Patient Declined. Declaration of Mental Health Treatment: No mental health treatment on file. Patient Declined. Insurance Insurance reviewed Visit number: 3 Evaluating therapist Miguel Soto PT. M46.1 Subjective Patient reports:. Patient reports that currently R SI joint is fine, but her pain increases with prolonged ambulation. 0/10 pain at end of session. Home program performing as directed: Partially . No HEP given, patient performs chair yoga on her own. Precautions: Fall Risk: low Pertinent medical HX includes: stroke 11/15; heart arhythmia; L SI fusion last yr (pending R fusion);. Treatment Time in clinic started at 11:30 pm Time in clinic ended at 12:15 pm Total time in clinic is 45 minutes. Total timed code time is 43 minutes. Aquatic Therapy (97845): timed minutes 43, units 3 . TrA contraction review 10 x 5 SIDE STEPPING x 3 laps Heel raises x 15 P Squats x 12 P Hip Flexion x 10 Hip Abd/add x 15 P Alt. december Steps x 15 P Squat x10 N DB ROLLS 30 ea. [employer] sm. blue board x 10 flexion, push/pull UE PADDLES x 20 ea. Open Flex/ext, abd/add, H. abd/add, push/pull 100% UNLOADING 1 noodle Bike 5' Hip abd/add 5' Hang 5' GRADUAL EXIT 2'. 'Scores and Scales' Signatures Electronically signed by : Laya Gomez PTA; Jun 30 2023 12:13PM EST (Author) Electronically signed by : Gregory Soto PT; Jun 30 2023 12:48PM EST [facility] MR Foot - left WO contraston 06-29-2023 IMPRESSION: 1. There is mild subcutaneous edema and soft tissue swelling of the fourth toe suspicious for cellulitis. 2. No MRI evidence of osteomyelitis. 3. No focal abscess. 4. No acute or healing fracture in the foot. RADIOLOGY EXAM: MRI FOOT LEFT WITHOUT CONTRAST COMPARISON: Left foot x-rays from 06/14/2023 and left foot MRI from 05/10/2023. HISTORY: Infection in the fourth toe. Evaluate for osteomyelitis. TECHNIQUE: Multiplanar and multisequence imaging of the left foot was performed without contrast. FINDINGS: Motion artifact degrades evaluation on this study. There is mild soft tissue swelling involving the fourth toe with mild subcutaneous edema. Correlation for clinical findings of cellulitis would be helpful. There is no well-defined abscess. There is no MRI evidence of osteomyelitis. There is no low T1 signal or bony destruction in the phalanges of the fourth toe. No fracture or dislocation is evident. There is no metatarsal stress fracture. The tarsometatarsal alignment is anatomic. There is mild joint space narrowing and spurring involving the first metatarsophalangeal joint. Flexor and extensor tendons and the midfoot and forefoot appear intact with no focal tendon tear. There is no focal tenosynovitis. No muscle edema is identified. RADIOLOGY Keshawn Adkins MD - 06/29/2023 EXAM: MRI FOOT LEFT WITHOUT CONTRAST COMPARISON: Left foot x-rays from 06/14/2023 and left foot MRI from 05/10/2023. HISTORY: Infection in the fourth toe. Evaluate for osteomyelitis. TECHNIQUE: Multiplanar and multisequence imaging of the left foot was performed without contrast. FINDINGS: Motion artifact degrades evaluation on this study. There is mild soft tissue swelling involving the fourth toe with mild subcutaneous edema. Correlation for clinical findings of cellulitis would be helpful. There is no well-defined abscess. There is no MRI evidence of osteomyelitis. There is no low T1 signal or bony destruction in the phalanges of the fourth toe. No fracture or dislocation is evident. There is no metatarsal stress fracture. The tarsometatarsal alignment is anatomic. There is mild joint space narrowing and spurring involving the first metatarsophalangeal joint. Flexor and extensor tendons and the midfoot and forefoot appear intact with no focal tendon tear. There is no focal tenosynovitis. No muscle edema is identified. IMPRESSION IMPRESSION: 1. There is mild subcutaneous edema and soft tissue swelling of the fourth toe suspicious for cellulitis. 2. No MRI evidence of osteomyelitis. 3. No focal abscess. 4. No acute or healing fracture in the foot. [facility] Radiology Study observation (narrative) [facility] MR Foot - left WO contrastOr dered By: Keshawn Adkins on 06-29-2023 [facility] Work Phone: PT Progress Noteon 3 PT Progress Note No report was sent [facility] PT Progress Note Therapy Diagnosis Assessed Sacroiliitis (720.2) (M46.1) Plan Goals: Goals set and discussed today. 1. Independent HEP to allow for 50% reduction in max ADL C/C sx ( 06/02) 2-3wks 2. Survey score improvement from 38% to 30% (CHIQUIS) 2-3wks 3. ROM increase to allow for improved ADL stairs (report reduced discomfort with full SFB) 3-4wks 4. Strength increase to allow for improved ADL walking (from gr4- to gr4+ abdominals) 3-4wks Planned interventions include: aquatic therapy, cryotherapy, education/instruction, gait training, home program, hot pack, kinesiotaping, manual therapy, neuromuscular re-education, self care/home management, therapeutic exercises and IASTM/cupping. Frequency and duration: 2 time(s) a week, for 4 weeks, for 8 visits. Potential to achieve rehab goals is fair: chronic syndrome Continue with core strength to improve sleep, standing, ADL. Progress with POC, as tolerated. Assessment Patient tolerated treatment without increased pain. Patient orientated to pool. Patient has Fair TrA and keeps intact with ther-ex. Patient needing one UE support with LE ther-ex and with 100% UNLOADING. Patient has good form/understanding with ther-ex and keeps body in good alignment. Continue with core stability while peerforming dyn activity to decrease back pain. Adult Risk Screening There are no spiritual/cultural practices/values/needs that are important to know Initial Fall Risk Screening: ELENA has fallen in the last 6 months. She has fallen due to vision related. Her fall resulted in the following injury: head laceration; stitches. EELNA has a fear of falling. She does not need assistance with sitting, standing or walking. Does not need assistance walking in her home. She does not need assistance in an unfamiliar setting. The patient is not using an assistive device. Fall Risk Screening: Patient is identified as a fall risk. Care Plan: Low Risk: Environmental for all patients and low risk patients: Offer assistance as needed or requested, keep environment free of obstacles, keep floor clean and dry, keep room lighting, wheelchair brakes on, bed/ stretcher locked and in low position if applicable, non-slip footwear if applicable, walker/cane available if needed, side rails up if applicable and pre-emptive toileting. Please identify location of pain: sacral area. Living Will. Living Will: Living will on file. Patient Declined. Healthcare POA: Health care proxy on file. Patient Declined. Declaration of Mental Health Treatment: No mental health treatment on file. Patient Declined. Insurance Insurance reviewed Visit number: 2 Evaluating therapist Miguel Soto PT. M46.1 Subjective Patient reports:. Patient reports no falls and states right side low back pain of 3/10. centralized. Patient reports having a stroke in left eye so states perception is off. Post aquatics states 0/10 low back pain. Precautions: Fall Risk: low Pertinent medical HX includes: stroke 11/15; heart arhythmia; L SI fusion last yr (pending R fusion);. Treatment Time in clinic started at 12:15 pm Time in clinic ended at 1:00 pm Total time in clinic is 45 minutes. Total timed code time is 40 minutes. Aquatic Therapy (88357): timed minutes 40, units 3 . SIDE x 10 STEPPING x 3 laps Heel raises x 10 Squats x 10 Hip Flexion x 10 Hip Abd/add x 10 Alt. december Steps x 10 DB ROLLS 30 ea. [place] [facility] sm. blue board x 10 flexion, push/pull UE PADDLES x 20 ea. Open Flex/ext, abd/add, H. abd/add, push/pull 100% UNLOADING 1 noodle Bike 5' Hip abd/add 5' Hang 5' GRADUAL EXIT 2'. 'Scores and Scales' Signatures Electronically signed by : Silvia Mcneill, RESERVATION SALES AGENT; Jun 29 2023 11:59AM EST (Author) Electronically signed by : Gregory Soto, PT; Jun 29 2023 2:13PM EST Normal Doutor Recomenda PT Initial Evaluationon 05-26 PT Initial Evaluation Therapy Diagnosis Assessed Sacroiliitis (720.2) (M46.1) Plan of Care Goals: Goals set and discussed today. 1. Independent HEP to allow for 50% reduction in max ADL C/C sx ( 8/10) 2-3wks 2. Survey score improvement from 38% to 30% (CHIQUIS) 2-3wks 3. ROM increase to allow for improved ADL stairs (report reduced discomfort with full SFB) 3-4wks 4. Strength increase to allow for improved ADL walking (from gr4- to gr4+ abdominals) 3-4wks Planned interventions include: aquatic therapy, cryotherapy, education/instruction, gait training, home program, hot pack, kinesiotaping, manual therapy, neuromuscular re-education, self care/home management, therapeutic exercises and IASTM/cupping. Frequency and duration: 2 time(s) a week, for 4 weeks, for 8 visits. Potential to achieve rehab goals is fair: chronic syndrome Plan of care was developed with input and agreement by the patient. Assessment S/P L SI fusion last yr. Pending R SI fusion. The L SI was injected yesterday. Will continue with lumbar and pelvic floor stability exercises. The patient preferred that pool be included in her program. Clinical Presentation: Stable and/or uncomplicated characteristics. Level of Complexity: low Reason For Visit Initial Evaluation . sacroilitis. Referred by: [facility] Adult Risk Screening There are no spiritual/cultural practices/values/needs that are important to know Initial Fall Risk Screening: ELENA has fallen in the last 6 months. She has fallen due to vision related. Her fall resulted in the following injury: head laceration; stitches. ELENA has a fear of falling. She does not need assistance with sitting, standing or walking. Does not need assistance walking in her home. She does not need assistance in an unfamiliar setting. The patient is not using an assistive device. Fall Risk Screening: Patient is identified as a fall risk. Care Plan: Low Risk: Environmental for all patients and low risk patients: Offer assistance as needed or requested, keep environment free of obstacles, keep floor clean and dry, keep room lighting, wheelchair brakes on, bed/ stretcher locked and in low position if applicable, non-slip footwear if applicable, walker/cane available if needed, side rails up if applicable and pre-emptive toileting. Pain Scale: On a scale of 0 to 10, the patient rates the pain at 9. Please identify location of pain: sacral area. Living Will. Living Will: Living will on file. Patient Declined. Healthcare POA: Health care proxy on file. Patient Declined. Declaration of Mental Health Treatment: No mental health treatment on file. Patient Declined. Insurance Insurance reviewed Visit number: 1 Evaluating therapist Miguel Soto PT. M46.1 Subjective Current Episode of Functional Impairment and/or Pain Date of onset: 06/22/2015 Mechanism of Injury:. had L SI fusion last year. Medical Screening: Reviewed medical history form with patient and medical screening assessed. Current Medical Management:. MRI done this past Mon ([facility]); SI injected yest (helped); rehab here within the last yr. Precautions: Fall Risk: low Pertinent medical HX includes: stroke 11/15; heart arhythmia; L SI fusion last yr (pending R fusion);. Functional Assessment Prior level of function: PAINFUL, DIFFICULT, OR ALTERED ADL (marked with an xx) sleep-- sitting-- sit to standing transfers-- car transfers-- standing-- walking--XX carrying--XX stairs--XX dressing lowers-- driving-- dressing uppers-- reaching---- handling objects-- other-- . Patient stated goal(s) for treatment include: relieving pain , increasing strength , reducing symptoms , reducing/preventing future occurrences and learning preventative care measures . Work Status: retired. Current Status: worsening . but better with recent injection. Patient Awareness: Patient is aware of her diagnosis and prognosis. Personal Factors That May Impact Care:. ID confirmed with B-day; speaks italian No obtrusive barriers to learning identified/observed. Objective Ortho Outcome Measures Modified Oswestry Low Back Pain Disability Index score: 38% Treatment Time in clinic started at 11:23 am Time in clinic ended at 12:05 am Total time in clinic is 43 minutes. Total timed code time is 0 minutes. Treatment Performed Today:. eval only-SI injection done yesterday. pool unloading with core stability exercises (lumbar and pelvic floor) Will continue with lumbar and pelvic floor stability exercises. Evaluation Code: 59427 PT Eval: Low Complexity, 40 min(s). Contacts for Physician Signature First attempt date: 06/22/23. Referring Provider Signature: I am in agreement with the above plan of care. Referring Provider Signature ____, Date/Time Signatures Electronically signed by : Gregory Soto PT; Jun 22 2023 12:06PM EST (Author) Rico Arenas LOWER EXTREMITY INJECTIONon 06-21-2023 Garry Stephens MD 07/17/2023 6:48 PM LOWER EXTREMITY INJECTION Date/Time: 06/21/2023 8:00 AM Performed by: Garry Stephens MD Authorized by: Garry Stephens MD Supporting Documentation Indications: pain Procedure Details: Procedure: trigger point injection Location: spine - Trigger Point Injection Details: Right lumbar paraspinal Needle size: 22 G Number of muscles injected: 1-2 muscles Medication Verification: I have personally verified and performed the final check of the medication(s) used in this procedure prior to administration. The following items were included during the verification process for medication(s) administered: drug name, strength, volume, expiration, physical integrity and appearance of the medication(s). Medications administered: 1 mL Bupivacaine (PF) 0.5 %; 1 mL Lidocaine 10 mg/mL; 40 mg triamcinolone 40 MG/ML; 4 mg dexAMETHasone 4 MG/ML Patient tolerance: patient tolerated the procedure well with no immediate complications Comments Medical Decision Making At today's visit I reviewed the history, physical examination, and previous pertinent imaging. We weighed the options of whether or not to proceed with an injection today based off of these findings and discussed alternatives. After this discussion, I felt that the injection was indicated and we elected to proceed. This evaluation and management service was a separate and identifiable service apart from the injection. Pre-Procedure Details The attending physician was present for the entire procedure. Consent: Consent was obtained prior to the procedure after discussion of the risks, benefits and alternatives, and expected outcomes were discussed with the patient. The possibilities of reaction to medication, bleeding, infection, the need for additional procedures, failure to diagnosis a condition, and creating a complication requiring operation were discussed with the patient. The patient concurred with the proposed plan, giving consent. Preparation: Patient was prepped in the usual sterile fashion. The patient was prepped with alcohol. [facility] MR Lumbar spine WO contrasto n 06-20-2023 IMPRESSION: MODERATE MULTILEVEL DEGENERATIVE CHANGES OF THE LUMBAR SPINE PROMINENT DORSAL EPIDURAL FAT L1-L5 L2-3: DIFFUSE DISC BULGE WITH LEFT FORAMINAL DISC PROTRUSION SMALL ANNULAR TEAR L3-4 MODERATE TO SEVERE MULTIFACTORIAL CENTRAL STENOSIS L4-5 FACET HYPERTROPHY LOWER 2 LUMBAR LEVELS RADIOLOGY TITLE: MRI SPINE LUMBAR WITHOUT CONTRAST COMPARISON: 2021 lumbar spine MRI CLINICAL HISTORY: Low back pain radiating to the sacroiliac joints TECHNIQUE: Sagittal T1, sagittal T2 FSE, sagittal STIR, and axial T2 FSE. FINDINGS: Alignment is normal. There is no listhesis nor vertebral body height loss. The conus medullaris terminates at L1-2 and appears normal. The visualized adjacent soft suggest a small right renal cyst. Prominent dorsal epidural fat L1-L5.. New metallic hardware traversing the left sacroiliac joint. T12-L1: Normal disc space. No stenosis L1-L2:Mild disc bulge. No significant stenosis. L2-3: Diffuse disc bulge. Left foraminal extension. Bilateral facet hypertrophy. Mild central canal and moderate left-sided foraminal narrowing L3-4: Mild disc bulge. Mild tear in left lateral annulus. Bilateral facet hypertrophy. Mild to moderate central canal and left-sided foraminal narrowing L4-5: Disc space narrowing lateral disc and osteophyte formation. Central disc protrusion. Facet hypertrophy and prominent dorsal epidural fat. This results in moderate to severe central canal and moderate foraminal narrowing L5-S1: Mild disc bulge. Bilateral facet hypertrophy. There is no significant central canal and [id number] left-sided foraminal narrowing RADIOLOGY Ralph Matias MD - 06/20/2023 TITLE: MRI SPINE LUMBAR WITHOUT CONTRAST COMPARISON: 2021 lumbar spine MRI CLINICAL HISTORY: Low back pain radiating to the sacroiliac joints TECHNIQUE: Sagittal T1, sagittal T2 FSE, sagittal STIR, and axial T2 FSE. FINDINGS: Alignment is normal. There is no listhesis nor vertebral body height loss. The conus medullaris terminates at L1-2 and appears normal. The visualized adjacent soft suggest a small right renal cyst. Prominent dorsal epidural fat L1-L5.. New metallic hardware traversing the left sacroiliac joint. T12-L1: Normal disc space. No stenosis L1-L2:Mild disc bulge. No significant stenosis. L2-3: Diffuse disc bulge. Left foraminal extension. Bilateral facet hypertrophy. Mild central canal and moderate left-sided foraminal narrowing L3-4: Mild disc bulge. Mild tear in left lateral annulus. Bilateral facet hypertrophy. Mild to moderate central canal and left-sided foraminal narrowing L4-5: Disc space narrowing lateral disc and osteophyte formation. Central disc protrusion. Facet hypertrophy and prominent dorsal epidural fat. This results in moderate to severe central canal and moderate foraminal narrowing L5-S1: Mild disc bulge. Bilateral facet hypertrophy. There is no significant central canal and [id number] left-sided foraminal narrowing IMPRESSION IMPRESSION: MODERATE MULTILEVEL DEGENERATIVE CHANGES OF THE LUMBAR SPINE PROMINENT DORSAL EPIDURAL FAT L1-L5 L2-3: DIFFUSE DISC BULGE WITH LEFT FORAMINAL DISC PROTRUSION SMALL ANNULAR TEAR L3-4 MODERATE TO SEVERE MULTIFACTORIAL CENTRAL STENOSIS L4-5 FACET HYPERTROPHY LOWER 2 LUMBAR LEVELS [facility] Radiology Study observation (narrative) [facility] MR Lumbar spine WO contrastO rdered By: Ralph Matias on 06-20-2023 [facility] XR Foot - left 3 Viewson IMPRESSION: 1. Again there is soft tissue swelling fourth toe, osseous abnormality not identified. 2. Calcaneal spurs. RADIOLOGY EXAM: XR FOOT LEFT 3 VIEWS HISTORY: left 4th toe infection COMPARISON: 05/02/2023. FINDINGS: 3 weightbearing views were submitted. Again the fourth toe appears swollen. Fracture, opaque foreign body or bony erosion not identified. Spurs present plantar and posterior calcaneus. RADIOLOGY Arsalan Kramer, DO - 06/14/2023 EXAM: XR FOOT LEFT 3 VIEWS HISTORY: left 4th toe infection COMPARISON: 05/02/2023. FINDINGS: 3 weightbearing views were submitted. Again the fourth toe appears swollen. Fracture, opaque foreign body or bony erosion not identified. Spurs present plantar and posterior calcaneus. IMPRESSION IMPRESSION: 1. Again there is soft tissue swelling fourth toe, osseous abnormality not identified. 2. Calcaneal spurs. [facility] Radiology Study observation (narrative) [facility] XR Foot - left 3 ViewsOrdere d By: Arsalan Kramer on 06-14-2023 [employer] Work Phone: XR Lumbar spine Views W righ t bending and W left bendingon 06-07-2023 Findings/impression: Satisfactory alignment. Maintained vertebral body heights. Multilevel disc disease and facet arthropathy of L3-S1. Intact hardware. No acute fracture or subluxation. Left-sided sacroiliac fixation. Intact hardware. RADIOLOGY EXAM: XR SPINE LUMBA R W BENDING HISTORY: Spondylosis of lumbar region without myelopathy or radiculopathy COMPARISON: None. TECHNIQUE: 5 views with flexion and extension RADIOLOGY Geronimo Avina MD - 06/07/2023 EXAM: XR SPINE LUMBAR W BENDING HISTORY: Spondylosis of lumbar region without myelopathy or radiculopathy COMPARISON: None. TECHNIQUE: 5 views with flexion and extension IMPRESSION Findings/impression: Satisfactory alignment. Maintained vertebral body heights. Multilevel disc disease and facet arthropathy of L3-S1. Intact hardware. No acute fracture or subluxation. Left-sided sacroiliac fixation. Intact hardware. [facility] Radiology Study observation (narrative) [facility] XR Lumbar spine Views W righ t bending and W left bendingOrdered By: Geronimo Avina on 06-07-2023 [employer] Work Phone: MR Foot - left WO contraston 05-10-2023 IMPRESSION: Soft tissue edema 4th distal phalanx without T1 abnormality or cortical disruption to suggest osteomyelitis. RADIOLOGY EXAM: MRI FOOT LEFT WITHOUT CONTRAST HISTORY: For stress swelling and abscess. Rule out osteomyelitis COMPARISON: None. TECHNIQUE: Multiplanar MRI of left foot was performed without contrast in sagittal, coronal and axial planes using T1, T2 and STIR pulsing sequences FINDINGS: Bony structures of left foot including visualized tarsal bones, metatarsals and phalanges demonstrate no evidence of fracture or contusion. No dislocation is seen. Small joint effusion is seen in the first metatarsophalangeal joint. Subtle marrow edema is suspected involving the fourth distal phalanx without bony destructive changes or abnormal T1 signal. No cortical disruption is seen to suggest osteomyelitis. The flexor and extensor tendons appear intact. Visualized plantar fascia appears intact. Collateral ligaments appear intact. Lisfranc ligament is visualized and appears intact. Evidence of superficial vein deep soft tissue edema involving fourth toe without focal collections. Muscles demonstrate normal signal. RADIOLOGY Kayy Martinez MD - 05/10/2023 EXAM: MRI FOOT LEFT WITHOUT CONTRAST HISTORY: For stress swelling and abscess. Rule out osteomyelitis COMPARISON: None. TECHNIQUE: Multiplanar MRI of left foot was performed without contrast in sagittal, coronal and axial planes using T1, T2 and STIR pulsing sequences FINDINGS: Bony structures of left foot including visualized tarsal bones, metatarsals and phalanges demonstrate no evidence of fracture or contusion. No dislocation is seen. Small joint effusion is seen in the first metatarsophalangeal joint. Subtle marrow edema is suspected involving the fourth distal phalanx without bony destructive changes or abnormal T1 signal. No cortical disruption is seen to suggest osteomyelitis. The flexor and extensor tendons appear intact. Visualized plantar fascia appears intact. Collateral ligaments appear intact. Lisfranc ligament is visualized and appears intact. Evidence of superficial vein deep soft tissue edema involving fourth toe without focal collections. Muscles demonstrate normal signal. IMPRESSION IMPRESSION: Soft tissue edema 4th distal phalanx without T1 abnormality or cortical disruption to suggest osteomyelitis. [facility] Radiology Study observation (narrative) [facility] MR Foot - left WO contrastOr dered By: Kayy Martinez on 05-10-2023 [facility] MA DRAIN SKIN ABSCESS COMPLI C/MULTIPLEon 05-05-2023 Jone Lyons PM 05/06/2023 1:51 PM MA DRAIN SKIN ABSCESS COMPLIC/MULTIPLE Performed by: Dawn Uriarte DPM Authorized by: Dawn Uriarte DPM [facility] Protocol Verbal consent obtained Written consent obtained Risks and benefits discussed Consent given by: patient Immediately prior to procedure a time out was called to verify the correct patient, procedure, equipment, technical support 1 software engineer and site/side marked as required. Anesthesia: Local anesthesia used: yes Local: 1% Lidocaine Post-procedure Patient tolerated the procedure well with no immediate complications I performed the procedure myself Additional Notes After a complete physical I did decide that the patient needed a nail avulsion to evacuate the abscess. All risks benefits and complications were explained to the patient in detail. I did explain to her that this is a temporary procedure and it is possible to have recurrence of the ingrown nail. The patient had all of her questions answered to her satisfaction and then signed an informed consent. No guarantees were made. The Nail and surrounding soft tissue was prepped with chlorahexide and then injected with 3cc of 1% lidocaine plain in a H-block fashion. Once, appropriate anesthesia was obtained, a freer was used on the proximal skin fold to free the skin from the nail The left 4th nail was removed An incision was made over the PIPJ where the ulcer was present. No bri purulenc There was no exposed bone. But I could probe to bone. A currette was then used to make sure that there were no remaining pieces of nail. The area was flushed again with normal sterile saline, antibiotic cream and a bulky dressing was placed on the toe. The patient was advised to limit their activity over the next day or so. The dressing can be removed in 24 hours, after that it should be covered with a Band-Aid and antibiotic cream. I will see the patient back in 2 weeks time for re-evaluation. Should she have any problems before then, they should contact my office. [facility] INCISION AND DRAINAGEon 04-23 Radiology Study observation (narrative) [facility] INCISION AND DRAINAGEon 04-23 CARO Knutson 05/03/2023 8:26 AM INCISION AND DRAINAGE Date/Time: 05/02/2023 1:55 PM Performed by: CARO Knutson Authorized by: CARO Knutson Indications: Type: Abscess Location: Body area: Lower extremity Location details: Left fourth toe Procedure Details: Needle gauge: 18 Incision depth: Dermal Complexity: Simple Drainage: Purulent and serosanguinous Wound treatment: Wound left open Packing material: None Dressing: non-adherent dressing Patient tolerance: Patient tolerated the procedure well with no immediate complications [facility] XR Foot - left 3 Viewson IMPRESSION: 1. Prominent soft tissue swelling of the fourth digit of the left foot. 2. I do not see any evidence of fracture, dislocation, advanced arthropathy or osteomyelitis. RADIOLOGY EXAM: XR FOOT LEFT 3 VIEWS HISTORY: infection, redness, drainage of left 4th toe. COMPARISON: None available. FINDINGS: 3 views of the left foot were obtained. These were AP, oblique and lateral views weightbearing I do not specifically see any evidence of fracture or dislocation. There are no periarticular calcifications, erosions or obvious signs of osteomyelitis. No soft tissue air is seen. The fourth digit appears prominently swollen RADIOLOGY Lolita Funk DO - 05/02/2023 EXAM: XR FOOT LEFT 3 VIEWS HISTORY: infection, redness, drainage of left 4th toe. COMPARISON: None available. FINDINGS: 3 views of the left foot were obtained. These were AP, oblique and lateral views weightbearing I do not specifically see any evidence of fracture or dislocation. There are no periarticular calcifications, erosions or obvious signs of osteomyelitis. No soft tissue air is seen. The fourth digit appears prominently swollen IMPRESSION IMPRESSION: 1. Prominent soft tissue swelling of the fourth digit of the left foot. 2. I do not see any evidence of fracture, dislocation, advanced arthropathy or osteomyelitis. [facility] Radiology Study observation (narrative) [facility] XR Foot - left 3 ViewsOrdere d By: Lolita Funk on 05-02-2023 [facility] CBC, EDIF, PLATELETon 2022 ABSOLUTE BASOPHIL COUNT 0.0 10*3/uL 0.0 - 0.2 10*3/uL [facility] Basophils/100 WBC (Bld) 0.6 % 0.0 - 2.0 % [facility] Differential cell count method Nom (Bld) AUTO DIFF % [facility] Eosinophils (Bld) [#/Vol] 0.1 10*3/uL 0.0 - 0.7 10*3/uL [facility] Eosinophils/100 WBC (Bld) 1.2 % 0.0 - 11.0 % [facility] Erythrocyte distribution width (RBC) [Ratio] 13.4 % 11.5 - 14.5 % [facility] Hematocrit (Bld) [Volume fraction] 37.2 % 36.0 - 48.0 % [facility] Hemoglobin (Bld) [Mass/Vol] 12.7 g/dL [facility] Interpretation and review of laboratory results Abnormal [facility] Lymphocytes (Bld) [#/Vol] 1.8 10*3/uL 1.2 - 3.4 10*3/uL [facility] Lymphocytes/100 WBC (Bld) 37.9 % 20.0 - 55.0 % [facility] MCH (RBC) [Entitic mass] 33.1 pg 26.0 - 35.0 PG [facility] MCHC (RBC) [Mass/Vol] 34.1 g/dL [facility] MCV (RBC) [Entitic vol] 97.3 fL [facility] Monocytes (Bld) [#/Vol] 0.5 10*3/uL 0.0 - 0.7 10*3/uL [facility] Monocytes/100 WBC (Bld) 10.5 % High 0.0 - 10.0 % [facility] Neutrophils (Bld) [#/Vol] 2.4 10*3/uL 1.4 - 6.5 10*3/uL [facility] Neutrophils/100 WBC (Bld) 49.8 % 37.0 - 75.0 % [facility] Platelet mean volume (Bld) [Entitic vol] 8.2 fL [facility] Platelets (Bld) [#/Vol] 182 10*3/uL 130 - 400 10*3/uL [facility] RBC (Bld) [#/Vol] 3.82 10*6/uL Low 4.0 - 5.4 10*6/uL [facility] WBC (Bld) [#/Vol] 4.8 10*3/uL 3.6 - 11.0 10*3/uL [facility] COMPREHENSIVE METABOLIC PANE Ethan 04-21-2023 Albumin [Mass/Vol] 3.6 G/dl 3.5 - 5.0 G/dl [facility] Albumin/Globulin [Mass ratio] 1.4 {ratio} RATIO [facility] ALP [Catalytic activity/Vol] 61 U/L [facility] ALT [Catalytic activity/Vol] 37 U/L [facility] AST [Catalytic activity/Vol] 41 U/L High [facility] Bilirubin [Mass/Vol] 0.4 mg/dL [facility] Calcium [Mass/Vol] 8.4 mg/dL [facility] Chloride [Moles/Vol] 99 mmol/L [facility] Comment on above: Please note: Triglyc eride levels of 600mg/dL or higher may positively bias chloride results by approximately 2.1 mmol CO2 [Moles/Vol] 25 mmol/L [facility] Creatinine [Mass/Vol] 0.81 mg/dL [facility] GFR COMMENT Average GFR for 60-6 9 years old = 85. [facility] Comment on above: Chronic Kidney disea se, GFR = <60. Kidney failure, GFR = <15. The GFR estimate is not adjusted for extreme body surface area or acute process, nor has it been validated for women or ethnic groups other than and . GFR/1.73 sq M.predicted among blacks MDRD (S/P/Bld) [Vol rate/Area] 91 mL/min/{1.73_m2} ml/min/1.73sq .m [facility] GFR/1.73 sq M.predicted among non-blacks MDRD (S/P/Bld) [Vol rate/Area] 75 mL/min/{1.73_m2} ml/min/1.73sq .m [facility] Glucose post fast [Mass/Vol] 116 mg/dL High [facility] Comment on above: NORMAL <100 mg/dL PREDIABETES 101-126 mg/dL DIABETES 126 mg/dL or higher Interpretation and review of laboratory results Abnormal [facility] Potassium [Moles/Vol] 4.0 mmol/L [facility] Protein [Mass/Vol] 6.1 g/dL Low [facility] Sodium [Moles/Vol] 134 mmol/L Low [facility] Urea nitrogen [Mass/Vol] 13 mg/dL [facility] [facility] 04-21-2023 [facility] HEMOGLOBIN A1Con 04-21-2023 Glucose [Mass/Vol] 123 mg/dL [facility] HbA1c (Bld) [Mass fraction] 5.9 % NINF - 6 % [facility] Comment on above: NORMAL <5.7% PREDIABETES 5.7-6.4% DIABETES 6.5% OR HIGHER [facility] MAGNESIUMon 04-21-2023 Interpretation and review of laboratory results Abnormal [facility] Magnesium [Mass/Vol] 1.3 mg/dL Low [facility] No Panel Informationon 04-21 [facility] Interpretation and review of laboratory results Abnormal [facility] PHOSPHATE, INORGANICon 04-21 Phosphate [Mass/Vol] 3.7 mg/dL [facility] PROTIME-INRon 04-21-2023 INR Coag (PPP) [Relative time] 1.07 {INR} 0.85 - 1.10 [facility] Comment on above: 2.0-3.0 THERAPEUTIC RANGE 2.5-3.5 MECHANICAL VALVE RANGE PT Coag (PPP) [Time] 14.0 s [facility] SCREEN: MRSA ONLY, NARES (IS OLATION SCREEN)on 04-21-2023 MRSA isol Org specific cx Ql (Nose) Negative NEGATIVE [facility] STAPHYOCOCCUS AUREUS BY PCR Negative NEGATIVE [facility] Comment on above: TESTING PERFORMED BY PCR [facility] SODIUM, RANDOM URINEon 04-21 Sodium (U) [Moles/Vol] 50 mmol/L [facility] TYPE AND SCREEN - POSSIBLE T RANSFUSIONon 04-21-2023 ABO and Rh group Nom (Bld ) Positive [facility] ARM BAND NUMBER [id number] [facility] Blood group antibody screen Ql Negative [facility] EXPIRATION DATE 05/19/2023,2335 [facility] URINALYSIS, MACROon 04-21-20 23 Bilirubin Ql (U) Negative NEGATIVE [facility] Clarity (U) CLEAR CLEAR [facility] Color (U) YELLOW YELLOW [facility] Glucose Test strip (U) [Mass/Vol] Negative NEGATIVE mg/dl [facility] Hemoglobin Ql (U) Negative NEGATIVE [facility] Ketones (U) [Mass/Vol] Negative NEGATIVE mg/dl [facility] Leukocyte esterase Test strip Ql (U) Negative NEGATIVE [facility] Nitrite Ql (U) Negative NEGATIVE [facility] pH (U) 6.5 [pH] 5.0 - 7.0 [facility] Protein Ql (U) Negative NEGATIVE mg/dl [facility] Specific gravity (U) [Rel density] 1.010 1.010 - 1.025 [facility] Urobilinogen (U) [Mass/Vol] 0.2 mg/dL [facility] Bilirubin Ql (U) Negative NEGATIVE [facility] Clarity (U) CLEAR CLEAR [facility] Color (U) YELLOW YELLOW [facility] Glucose Test strip (U) [Mass/Vol] Negative NEGATIVE mg/dl [facility] Hemoglobin Ql (U) TRACE-INTACT Abnormal NEGATIVE [facility] Ketones (U) [Mass/Vol] Negative NEGATIVE mg/dl [facility] Leukocyte esterase Test strip Ql (U) Negative NEGATIVE [facility] Nitrite Ql (U) Negative NEGATIVE [facility] pH (U) 6.0 [pH] 5.0 - 7.0 [facility] Protein Ql (U) Negative NEGATIVE mg/dl [facility] Specific gravity (U) [Rel density] 1.010 1.010 - 1.025 [facility] Urobilinogen (U) [Mass/Vol] 0.2 mg/dL [facility] URINE MICROSCOPICon 04-21-20 23 Bacteria LM.HPF (Urine sed) [#/Area] Negative NEGATIVE [facility] Casts LM.LPF (Urine sed) [#/Area] NONE NONE /LPF [facility] Crystals LM Nom (Urine sed) NONE NONE [facility] Epithelial cells LM Ql (Urine sed) NONE /HPF [facility] Mucus Ql (Urine sed) Negative NEGATIVE [facility] RBC LM.HPF (Urine sed) [#/Area] Negative NEGATIVE /HPF [facility] Urine sediment comments LM Brian (Urine sed) CULTURE CRITERIA NOT MET, NO CULTURE PERFORMED. [facility] WBC LM.HPF (Urine sed) [#/Area] Negative NEGATIVE /HPF [facility] Bacteria LM.HPF (Urine sed) [#/Area] TRACE Abnormal NEGATIVE [facility] Casts LM.LPF (Urine sed) [#/Area] NONE NONE /F [facility] Crystals LM Nom (Urine sed) NONE NONE [facility] Epithelial cells LM Ql (Urine sed) 10 TO 20 /HPF [facility] Mucus Ql (Urine sed) Negative NEGATIVE [facility] RBC LM.HPF (Urine sed) [#/Area] 1 TO 5 NEGATIVE /HPF [facility] Urine sediment comments LM Brian (Urine sed) POSSIBLY CONTAMINATED SPECIMEN, CULTURE MUST BE ORDERED SEPARATELY IF DEEMED NECESSARY. [facility] WBC LM.HPF (Urine sed) [#/Area] 1 TO 5 NEGATIVE /HPF [facility] URINE PROTEIN/CREA RATIO, RA NDOMon 04-21-2023 Creatinine (U) [Mass/Vol] 22.6 mg/dL MG/DL [facility] Comment on above: NO NORMAL VALUES EST ABLISHED FOR RANDOM SPECIMENS Protein (U) [Mass/Vol] 12 mg/dL [facility] PROTEIN/CREAT RATIO, URINE 0.5 [facility] Comment on above: REFERENCE RANGES <0.2 NORMAL 0.2-3.5 NON-NEPHROTIC >3.5 NEPHROTIC BONE DENSITY AXIAL (HIP, PEL VIS, SPINE)on 03-01-2023 IMPRESSION: Final categorization (based on the lowest T-score of the above, as recommended by the International Society of Clinical Densitometry): Normal. RADIOLOGY BONE DENSITOMETRY HISTORY: Asymptomatic postmenopausal state. COMPARISON: None. TECHNIQUE: Bone mineral density measurements were obtained of the lumbar spine and left hip on a QBE machine. FINDINGS: BONE MINERAL DENSITY DETERMINATION: Instrument: The examination was done at [facility]. The average bone mineral density was measured. Den sity (g/sq cm) T-score Left femoral neck 0.999 -0.3. Total Left Hip 1.093 0 .7. Spine L1 - L4 1.285 0 .9. BMD comparison to prior study: None.. * denotes significance at 95% confidence level. NOTES: In order to compare results through the years, it is necessary that the patient be scanned on the same instrument each time, or on instruments that have been cross-correlated. If this is not done, then difference may be due to differences in the machines, rather than to changes in the patient's bone density. RADIOLOGY Esteban Cui M D - 03/01/2023 BONE DENSITOMETRY HISTORY: Asymptomatic postmenopausal state. COMPARISON: None. TECHNIQUE: Bone mineral density measurements were obtained of the lumbar spine and left hip on a QBE machine. FINDINGS: BONE MINERAL DENSITY DETERMINATION: Instrument: The examination was done at [facility]. The average bone mineral density was measured. Den sity (g/sq cm) T-score Left femoral neck 0.999 -0.3. Total Left Hip 1.093 0 .7. Spine L1 - L4 1.285 0 .9. BMD comparison to prior study: None.. * denotes significance at 95% confidence level. NOTES: In order to compare results through the years, it is necessary that the patient be scanned on the same instrument each time, or on instruments that have been cross-correlated. If this is not done, then difference may be due to differences in the machines, rather than to changes in the patient's bone density. IMPRESSION IMPRESSION: Final categorization (based on the lowest T-score of the above, as recommended by the International Society of Clinical Densitometry): Normal. [facility] Study observation (narrative) [facility]ENSITY AXIAL (HIP, PEL VIS, SPINE)Ordered By: Esteban Cui on 03-01-2023 [facility] Work Phone: CT CERVICAL SPINE WITHOUT CO NTRASTon 02-05-2023 CT CERVICAL SPINE WITHOUT CONTRAST EXAMINATION: CT OF THE HEAD WITHOUT CONTRAST; CT OF THE CERVICAL SPINE WITHOUT CONTRAST 02/05/2023 TECHNIQUE: CT of the head was performed without the administration of intravenous contrast. Dose modulation, iterative reconstruction, and/or weight based adjustment of the mA/kV was utilized to reduce the radiation dose to as low as reasonably achievable.; CT of the cervical spine was performed without the administration of intravenous contrast. Multiplanar reformatted images are provided for review. Dose modulation, iterative reconstruction, and/or weight based adjustment of the mA/kV was utilized to reduce the radiation dose to as low as reasonably achievable. COMPARISON: CT head and cervical spine March 31, 2022 HISTORY: ORDERING SYSTEM PROVIDED HISTORY: fall struck head; TECHNOLOGIST PROVIDED HISTORY: Injury/Trauma Acuity: Acute Reason for Exam: fall struck forehead Type of Encounter: Initial Mechanism of Injury: fall ORDERING SYSTEM PROVIDED DIAGNOSIS CODES: W19.XXXA Fall S09.90XA Closed head injury, initial encounter S01.81XA Laceration of forehead, initial encounter FINDINGS: CT head: BRAIN/VENTRICLES: There is old lacunar infarct in the right basal ganglia/periventricula r white matter. There is mild parenchymal volume loss. There is periventricular white matter low attenuation, consistent with mild chronic microvascular disease. No acute intracranial hemorrhage or extraaxial fluid collection. Multani-white differentiation is maintained. No mass effect or midline shift. No hydrocephalus. ORBITS: The visualized portion of the orbits demonstrate no acute abnormality. SINUSES: The visualized paranasal sinuses and mastoid air cells demonstrate no acute abnormality. SOFT TISSUES/SKULL: No acute abnormality of the visualized skull. There is soft tissue swelling and laceration of forehead scalp. CT cervical spine: BONES/ALIGNMENT: There is no acute cervical spine fracture. There is 2 mm C3 on C4 anterolisthesis DEGENERATIVE CHANGES: There is multilevel degenerative disc disease with mild endplate changes and small endplate osteophyte formation. The intervertebral disc heights are grossly maintained. SOFT TISSUES: The prevertebral soft tissues are unremarkable. IMPRESSION: No acute intracranial abnormality. Degenerative changes. No acute fracture or subluxation of the cervical spine. Workstation ID: [id number] Dictated by: CASSIE BARNES on Sat Feb 05, 2023 6:36:00 PM EDT Transcribed by: CASSIE BARNES on Rust Feb 05, 2023 6:36:00 PM EDT Finalized by: CASSIE BARNES on Rust Feb 05, 2023 6:36:00 PM EDT [facility] Comment on above: Order Comment: Injur y/Trauma or Illness?:Injury/Trauma How long have you had these symptoms (acute/chronic)?:Acute Reason for exam?:fall struck forehead Type of Exam?:Initial Mechanism of injury?:fall CT HEAD OR BRAIN WITHOUT CON TRASTon 02-05-2023 CT HEAD OR BRAIN WITHOUT CONTRAST EXAMINATION: CT OF THE HEAD WITHOUT CONTRAST; CT OF THE CERVICAL SPINE WITHOUT CONTRAST 02/05/2023 TECHNIQUE: CT of the head was performed without the administration of intravenous contrast. Dose modulation, iterative reconstruction, and/or weight based adjustment of the mA/kV was utilized to reduce the radiation dose to as low as reasonably achievable.; CT of the cervical spine was performed without the administration of intravenous contrast. Multiplanar reformatted images are provided for review. Dose modulation, iterative reconstruction, and/or weight based adjustment of the mA/kV was utilized to reduce the radiation dose to as low as reasonably achievable. COMPARISON: CT head and cervical spine March 31, 2022 HISTORY: ORDERING SYSTEM PROVIDED HISTORY: fall struck head; TECHNOLOGIST PROVIDED HISTORY: Injury/Trauma Acuity: Acute Reason for Exam: fall struck forehead Type of Encounter: Initial Mechanism of Injury: fall ORDERING SYSTEM PROVIDED DIAGNOSIS CODES: W19.XXXA Fall S09.90XA Closed head injury, initial encounter S01.81XA Laceration of forehead, initial encounter FINDINGS: CT head: BRAIN/VENTRICLES: There is old lacunar infarct in the right basal ganglia/periventricula r white matter. There is mild parenchymal volume loss. There is periventricular white matter low attenuation, consistent with mild chronic microvascular disease. No acute intracranial hemorrhage or extraaxial fluid collection. Multani-white differentiation is maintained. No mass effect or midline shift. No hydrocephalus. ORBITS: The visualized portion of the orbits demonstrate no acute abnormality. SINUSES: The visualized paranasal sinuses and mastoid air cells demonstrate no acute abnormality. SOFT TISSUES/SKULL: No acute abnormality of the visualized skull. There is soft tissue swelling and laceration of forehead scalp. CT cervical spine: BONES/ALIGNMENT: There is no acute cervical spine fracture. There is 2 mm C3 on C4 anterolisthesis DEGENERATIVE CHANGES: There is multilevel degenerative disc disease with mild endplate changes and small endplate osteophyte formation. The intervertebral disc heights are grossly maintained. SOFT TISSUES: The prevertebral soft tissues are unremarkable. IMPRESSION: No acute intracranial abnormality. Degenerative changes. No acute fracture or subluxation of the cervical spine. Workstation ID: [id number] Dictated by: CASSIE BARNES on Sat Feb 05, 2023 6:36:00 PM EDT Transcribed by: CASSIE BARNES on Sat Feb 05, 2023 6:36:00 PM EDT Finalized by: CASSIE BARNES on Sat Feb 05, 2023 6:36:00 PM EDT [facility] Comment on above: Order Comment: Injur y/Trauma or Illness?:Injury/Trauma How long have you had these symptoms (acute/chronic)?:Acute Reason for exam?:fall struck forehead Type of Exam?:Initial Mechanism of injury?:fall CNPNon 12-13-2022 CNPN Telephone ([employer]) ELENA GALEANO ([id number]) 1960 F Date Time Provider Department 12/13/22 SHI MOREL During your visit today, we recorded the following information about you: Shi Morel APRN.CNP 12/13/2022 10:12 AM Signed Please call the patient: Event monitor showed predominantly sinus rhythm with an average heart rate of 60 bpm. Lowest heart rate was 41 bpm around 4:30 in the afternoon (asymptomatic). This may be due to a nap during this time? Please assure patient is having no new lightheadedness or dizziness since increase carvedilol dose. There were occasional asymptomatic PACs. There was no atrial fibrillation on the monitor. KELSEY Osborne RN 12/13/2022 11:29 AM Addendum Called PT about Event monitor showed predominantly sinus rhythm with an average heart rate of 60 bpm. Lowest heart rate was 41 bpm around 4:30 in the afternoon (asymptomatic). This may be due to a nap during this time? Please assure patient is having no new lightheadedness or dizziness since increase carvedilol dose. There were occasional asymptomatic PACs. There was no atrial fibrillation on the monitor. Shi Morel APRN.CNP PT states her heart Dr. Fairbanks at the DC put her back on Carvedilol at 12.5 mg twice a day. PT states she feels better. PT states when she was taking carvedilol 25 mg twice a day she felt unsteady walking. PT states her 130s/70s HR 60s pt was taking her BPs before her medications I advised the PT to take BP at least 1 hour after taking her medications. PT states she understands and feels much better. Shi Morel APRN.CNP 12/13/2022 11:37 AM Signed Noted. Shi Morel APRN.CNP Allergies As of Date: 12/13/2022 Noted Allergy Reaction SEASONAL ALLERGIES 08/19/2014 14 - Other: See Comments Comments: sneezing and stuffy nose Date Reviewed: 11/24/2022 Reviewed by: Dolly Perez - Fully Assessed Reason for Visit: Results [95] Cmt: Zayda Event Monitor Prescriptions as of 12/13/2022 - apixaban (ELIQUIS) 5 mg tab(s) Take 1 tablet by mouth twice daily. - lisinopril (ZESTRIL, PRINIVIL) 10 mg tablet Take 1 tablet by mouth once daily. - carvedilol (COREG) 25 mg tablet Take 1 tablet by mouth twice daily with meals. - triamterene-hydroCHLOR Othiazide (MAXZIDE-25) 37.5-25 mg per tablet Take 1 tablet by mouth once daily. - clopidogrel (PLAVIX) 75 mg tablet Take 1 tablet by mouth once daily for 21 doses. - traZODone (DESYREL) 100 mg tablet Take 100 mg by mouth. - pantoprazole DR (PROTONIX) 40 mg tablet Take 40 mg by mouth. - buPROPion XL (WELLBUTRIN XL) 300 mg 24 hr tablet Take 300 mg by mouth. - REPATHA SURECLICK 140 mg/mL pen injector Inject 1 mL under the skin every 14 days. - albuterol HFA (PROVENTIL HFA, VENTOLIN HFA) 90 mcg/actuation inhaler Inhale 2 Puffs as instructed every 6 hours as needed. Problem List As Of Date 12/13/2022 Noted Resolved Lymphocytosis [D72.820] 12/16/2011 09/01/2012 Splenomegaly [R16.1] 12/16/2011 09/01/2012 Follicular lymphoma [C82.90] 2012 Arthralgia [M25.50] 04/04/2012 Chest discomfort [R07.89] 12/02/2012 PVC's (premature ventricular contractions) [I49*04/20/2013 Elevated liver function tests [R79.89] 10/23/2013 Dyslipidemia [E78.5] 10/23/2013 Postmenopausal bleeding [N95.0] 02/14/2014 Right knee pain [M25.561] 06/12/2014 Tear of meniscus of right knee [S83.206A] 08/20/2014 Osteoarthrosis, unspecified whether generalized*05/19/2015 05/19/2015 Obesity (BMI 30-39.9) [E66.9] 05/13/2016 Mixed hyperlipidemia [E78.2] 02/04/2017 Essential hypertension [I10] 06/10/2017 Arthritis of left acromioclavicular joint [M19.*03/30/2021 Biceps tendinitis of left upper extremity [M75.*03/30/2021 S/P arthroscopy of shoulder [Z98.890] 07/13/2021 Ischemic stroke (HCC) [I63.9] 10/31/2022 Central artery occlusion of retina, 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*10/31/2022 Paroxysmal atrial fibrillation (HCC) [I48.0] 10/31/2022 11/01/2022 PERCY (obstructive sleep apnea) [G47.33] 10/31/2022 Depressive disorder [F32.A] 10/31/2022 Obesity, Class II, BMI 35-39.9 [E66.9] 10/31/2022 Central retinal artery occlusion, left eye [H34*11/01/2022 Sudden loss of vision, left [H53.132] 11/01/2022 Headache, temporal [R51.9] 11/01/2022 After-cataract with vision obscured of both eye*11/01/2022 Hypertensive urgency [I16.0] 11/09/2022 11/12/2022 Carotid stenosis, bilateral [I65.23] 11/09/2022 Anxiety [F41.9] 11/09/2022 Encounter Status:Closed by SHI MOREL on 12/13/22 [facility] CBC, EDIF, PLATELETon 2022 ABSOLUTE BASOPHIL COUNT 0.0 10*3/uL 0.0 - 0.2 10*3/uL [facility] Basophils/100 WBC (Bld) 0.7 % 0.0 - 2.0 % [facility] Differential cell count method Nom (Bld) AUTO DIFF % [facility] Eosinophils (Bld) [#/Vol] 0.0 10*3/uL 0.0 - 0.7 10*3/uL [facility] Eosinophils/100 WBC (Bld) 0.5 % 0.0 - 11.0 % [facility] Erythrocyte distribution width (RBC) [Ratio] 13.0 % 11.5 - 14.5 % [facility] Hematocrit (Bld) [Volume fraction] 37.7 % 36.0 - 48.0 % [facility] Hemoglobin (Bld) [Mass/Vol] 12.7 g/dL [facility] Interpretation and review of laboratory results Abnormal [facility] Lymphocytes (Bld) [#/Vol] 2.5 10*3/uL 1.2 - 3.4 10*3/uL [facility] Lymphocytes/100 WBC (Bld) 35.3 % 20.0 - 55.0 % [facility] MCH (RBC) [Entitic mass] 32.7 pg 26.0 - 35.0 PG [facility] MCHC (RBC) [Mass/Vol] 33.6 g/dL [facility] MCV (RBC) [Entitic vol] 97.1 fL [facility] Monocytes (Bld) [#/Vol] 0.7 10*3/uL 0.0 - 0.7 10*3/uL [facility] Monocytes/100 WBC (Bld) 9.2 % 0.0 - 10.0 % [facility] Neutrophils (Bld) [#/Vol] 3.8 10*3/uL 1.4 - 6.5 10*3/uL [facility] Neutrophils/100 WBC (Bld) 54.3 % 37.0 - 75.0 % [facility] Platelet mean volume (Bld) [Entitic vol] 9.1 fL [facility] Platelets (Bld) [#/Vol] 211 10*3/uL 130.0 - 400.0 10*3/uL [facility] RBC (Bld) [#/Vol] 3.88 10*6/uL Low 4.0 - 5.4 10*6/uL [facility] WBC (Bld) [#/Vol] 7.1 10*3/uL 3.6 - 11.0 10*3/uL [facility] COMPREHENSIVE METABOLIC PANE Ethan 11-22-2022 Albumin [Mass/Vol] 4.0 G/dl 3.5 - 5.0 G/dl [facility] Albumin/Globulin [Mass ratio] 1.4 {ratio} [facility] ALP [Catalytic activity/Vol] 45 U/L [facility] ALT [Catalytic activity/Vol] 30 U/L [facility] AST [Catalytic activity/Vol] 35 U/L [facility] Bilirubin [Mass/Vol] 0.4 mg/dL [facility] Calcium [Mass/Vol] 9.5 mg/dL [facility] Chloride [Moles/Vol] 94 mmol/L Low [facility] CO2 [Moles/Vol] 28 mmol/L [facility] Creatinine [Mass/Vol] 0.93 mg/dL [facility] GFR COMMENT Average GFR for 60-6 9 years old = 85. [facility] Comment on above: Chronic Kidney disea se, GFR = <60. Kidney failure, GFR = <15. The GFR estimate is not adjusted for extreme body surface area or acute process, nor has it been validated for women or ethnic groups other than and . GFR/1.73 sq M.predicted among blacks MDRD (S/P/Bld) [Vol rate/Area] 78 mL/min/{1.73_m2} ml/min/1.73sq .m [facility] GFR/1.73 sq M.predicted among non-blacks MDRD (S/P/Bld) [Vol rate/Area] 65 mL/min/{1.73_m2} ml/min/1.73sq .m [facility] Glucose post fast [Mass/Vol] 105 mg/dL High [facility] Comment on above: NORMAL <100 mg/dL PREDIABETES 101-126 mg/dL DIABETES 126 mg/dL or higher Potassium [Moles/Vol] 3.9 mmol/L [facility] Protein [Mass/Vol] 6.9 g/dL [facility] Sodium [Moles/Vol] 135 mmol/L Low [facility] Urea nitrogen [Mass/Vol] 22 mg/dL [facility] FERRITINon 11-22-2022 Ferritin [Mass/Vol] 19 ng/mL [facility] Comment on above: PREMENOPAUSAL FEMALE S 6.9-282.5 POSTMENOPAUSAL FEMALES 14.0-233.1 FOLATE, SERUMon 11-22-2022 Folate [Mass/Vol] 11.8 ng/mL - PINF [facility] HEMOGLOBIN A1Con 11-22-2022 Glucose [Mass/Vol] 120 mg/dL [facility] HbA1c (Bld) [Mass fraction] 5.8 % NINF - 6 % [facility] Comment on above: NORMAL <5.7% PREDIABETES 5.7-6.4% DIABETES 6.5% OR HIGHER [facility] IRON/IRON BINDING/TRANSFERRI Non 11-22-2022 Iron [Mass/Vol] 129 ug/dL [facility] Iron binding capacity [Mass/Vol] 539 High [facility] Iron saturation [Mass fraction] 24 % [facility] LIPID PANEL W CALCULATED LDL on 11-22-2022 Cholesterol [Mass/Vol] 194 mg/dL [facility] Cholesterol in HDL [Mass/Vol] 73 mg/dL [facility] Cholesterol in LDL [Mass/Vol] 68 mg/dL [facility] Cholesterol in VLDL [Mass/Vol] 53 mg/dL [facility] Cholesterol.total/Ch olesterol in HDL [Mass ratio] 2.66 {ratio} RATIO [facility] Comment on above: RISK TOTAL/HDL RATIO MEN WOMEN 1/2 AVERAGE 3.43 3.27 AVERAGE 4.97 4.44 2X AVERAGE 9.55 7.05 3X AVERAGE 23.99 11.04 Triglyceride [Mass/Vol] 267 mg/dL High [facility] No Panel Informationon 11-22 [facility] Interpretation and review of laboratory results Abnormal [facility] TSHon 11-22-2022 TSH Qn 2.143 m[IU]/L [facility] URIC ACIDon 11-22-2022 Urate [Mass/Vol] 7.4 mg/dL High [facility] VITAMIN B12on 11-22-2022 Cobalamin (Vitamin B12) [Mass/Vol] 664 pg/mL 180 - 914 PG/ML [facility] VITAMIN D (25-HYDROXY,TOTAL) on 11-22-2022 25-hydroxyvitamin D [Mass/Vol] 41.7 - PINF [facility] Comment on above: DEFICIENT <20 NG/ML INSUFFICIENT 20-<30 NG/ML SUFFICIENT 30-100 NG/ML POTENTIAL TOXICITY >100 NG/ML CNCOon 11-15-2022 [facility]CO Letter Text Normal [facility] Basic metabolic 2000 panelon 11-12-2022 Anion gap [Moles/Vol] 8 mmol/L Low 9-18 [facility] Comment on above: Order Comment: Speci men Type: BLOOD SPECIMENOrdering Facility: [facility] Address: [address] [place] [address] Performed By: #### 2 [id number], [id number], ####[facility]ATORY[facility]IA [id number] [place] [address] [place] Calcium [Mass/Vol] 10.0 mg/dL Normal 8.5-10.2 [facility] Comment on above: Order Comment: Speci men Type: BLOOD SPECIMENOrdering Facility: [facility] Address: [address] [place] [address] Performed By: #### 2 [id number], , ####[facility]ATORYCLIA [id number] [place] [address] [place] Chloride [Moles/Vol] 104 mmol/L Normal 97-105 [facility] Comment on above: Order Comment: Speci men Type: BLOOD SPECIMENOrdering Facility: [facility] [place] Address: [address] [place] [address] Performed By: #### 2 777-1, , ####LOPEZ LABORATORYCLIA [id number] [address] [place] CO2 [Moles/Vol] 30 mmol/L Normal 22-30 [facility] Comment on above: Order Comment: Speci men Type: BLOOD SPECIMENOrdering Facility: [facility] [place] Address: [address] [place] [address] Performed By: #### 2 777-1, , ####LOPEZ LABORATORYCLIA [id number] [place] [address] [place] Creatinine [Mass/Vol] 0.97 mg/dL High 0.58-0.96 [facility] Comment on above: Order Comment: Speci men Type: BLOOD SPECIMENOrdering Facility: [facility] [place] Address: [address] [place], [place] [address] Performed By: #### 2 777-1, 02671-4, ####LOPEZ LABORATORYCLIA [id number] [address] ESTIMATED GLOMERULAR FILTRATION RATE 65 mL/min/1.73m??? Normal >=60 [facility] Comment on above: Order Comment: Brian ramey Type: BLOOD SPECIMENOrdering Facility: [facility] [place] Address: [place] [address] Result Comment: Nay mated Glomerular Filtration Rate (eGFR) is calculated using the 2020 CKD-EPI creatinine equation. This equation utilizes serum creatinine, sex, and age as parameters. The creatinine assay has traceable calibration to isotope dilution-mass spectrometry. Refer to KDIGO guidelines for clinical interpretation. In patients with unstable renal function, e.g. those with acute kidney injury, the eGFR may not accurately reflect actual GFR. Performed By: #### 2 777-1, 32777-8, ####LOPEZ LABORATORYCLIA [id number] [address] STATES OF [facility] Glucose [Mass/Vol] 118 mg/dL High 74-99 [facility] Comment on above: Order Comment: Brian ramey Type: BLOOD SPECIMENOrdering Facility: [facility] [place] Address: [address] [place] [address] Result Comment: The [place] Diabetes Association (ADA) provides guidance for cutoff values for fasting glucose and random glucose. The ADA defines fasting as no caloric intake for at least 8 hours. Fasting plasma glucose results between 100 to 125 mg/dL indicate increased risk for diabetes (prediabetes). Fasting plasma glucose results greater than or equal to 126 mg/dL meet the criteria for diagnosis of diabetes. In the absence of unequivocal hyperglycemia, results should be confirmed by repeat testing. In a patient with classic symptoms of hyperglycemia or hyperglycemic crisis, random plasma glucose results greater than or equal to 200 mg/dL meet the criteria for diagnosis of diabetes. Reference: Standards of Medical Care in Diabetes 2016, [place] [employer] Association. Diabetes Care. 2016.39(Suppl 1). Performed By: #### 2 777-1, 72063-1, ####LOPEZ LABORATORYCLIA [id number] [address] [place] Potassium [Moles/Vol] 4.5 mmol/L Normal 3.7-5.1 [facility] Comment on above: Order Comment: Speci men Type: BLOOD SPECIMENOrdering Facility: [facility] [place] Address: [address] [place] [address] Performed By: #### 2 777-1, 91125-5, ####LOPEZ LABORATORYCLIA [id number] [address] Sodium [Moles/Vol] 142 mmol/L Normal 136-144 [facility] Comment on above: Order Comment: Speci men Type: BLOOD SPECIMENOrdering Facility: [facility] [place] Address: [address] [place] [address] Performed By: #### 2 777-1, 27571-5, ####LOPEZ LABORATORYCLIA [id number] [address] [place] Urea nitrogen [Mass/Vol] 12 mg/dL Normal 7-21 [facility] Comment on above: Order Comment: Speci men Type: BLOOD SPECIMENOrdering Facility: [facility] [place] Address: [address] [place] [address] Performed By: #### 2 777-1, 79813-9, ####LOPEZ LABORATORYCLIA [id number] [address] OF [facility] CASE MANAGEMon 11-12-2022 CASE MANAGEM HNO ID: [id number] Author: Yoselin Callahan RN Service: ? Author Type: Registered Nurse Type: Care Mgt Progress Note Filed: 11/12/2022 2:18 PM Note Text: CARE MANAGEMENT PROGRESS NOTE SERVICE DATE: 11/12/2022 SERVICE TIME: 2:13 PM LOS: 3 days Admission Date: 11/09/2022 DISCHARGE ARRANGEMENT Discharge Arrangement: Home with Self Care HANDOFF COMMUNICATION: Handoff to: Primary Care Physician Primary Care Physician Name/Phone: PCP: Fernie Paredes, DO - [phone] TRANSPORTATION ARRANGEMENTS: Transportation Arrangements: Car (Family to Transport - Spouse) ADDITIONAL CONTACT RESOURCES: Discharge Information Row Name ED to Hosp-Admission (Current) from 11/09/2022 in [facility] Medical Follow-Up Appointment Provider Name PCP: Fernie Paredes, - [phone] Needs Prior to Discharge: Ready for Discharge Discharge Time Out Yes - by phone Bedside RN present No - Message sent to update nurse: Vero Valdez RN Does pt have transport home? Yes - Spouse Did pt use bedside pharmacy? Yes SIGNATURE: Yoselin Callahan RN PATIENT NAME: Elena Galeano DATE: November 12, 2022 TIME: 2:10 PM PAGER/CONTACT #: [phone] [facility] CASE MANAGEM HNO ID: [id number] Author: Yoselin Callahan RN Service: ? Author Type: Registered Nurse Type: Care Mgt Progress Note Filed: 11/12/2022 9:46 AM Note Text: CARE MANAGEMENT PROGRESS NOTE SERVICE DATE: 11/12/2022 SERVICE TIME: 9:41 AM LOS: 3 days Per EMR Review: O2: Room Air. Hospital Consult: Cardiology. 11/12/22 PT evaluation - pending AC: Eliquis Needs Prior to Discharge: To Be Determined;OT/PT Evaluation;Discharge Prescriptions Ward Check for Eliquis Prescription Needed for Discharge. CM Dept already discussed $10 copay coupon for commercial insurance. Anticipated Discharge Plan: Return Home at Discharge. Discharge Transportation: Family to Transport - spouse. CM Dept to follow. SIGNATURE: Yoselin Callahan RN PATIENT NAME: Elena Galeano DATE: November 12, 2022 TIME: 9:41 AM PAGER/CONTACT #: [phone] [facility] CBC W Auto Differential pane l (Bld)on 11-12-2022 Basophils (Bld) [#/Vol] 0.03 10*3/uL Normal <0.11 [facility] Comment on above: Order Comment: Speci men Type: BLOOD SPECIMENOrdering Facility: [facility] [place] Address: [address] [place] [id number] Performed By: #### 5 7021-8 ####SIPSEY LABORATORYCLIA [id number] [place] [address] [place] Basophils/100 WBC (Bld) 0.6 % Normal [facility] Comment on above: Order Comment: Speci men Type: BLOOD SPECIMENOrdering Facility: [facility] [place] Address: [address] [place] [address] Performed By: #### 5 7021-8 ####LOPEZ LABORATORYCLIA [id number] [address] [place] Differential cell count method Nom (Bld) Auto Normal [facility] Comment on above: Order Comment: Speci men Type: BLOOD SPECIMENOrdering Facility: [facility] [place] Address: [address] [place] [address] Performed By: #### 5 7021-8 ####LOPEZ LABORATORYCLIA [id number] [place] [address] [place] Eosinophils (Bld) [#/Vol] 0.06 10*3/uL Normal <0.46 [facility] Comment on above: Order Comment: Speci men Type: BLOOD SPECIMENOrdering Facility: [facility] [place] Address: [address] [place] [address] Performed By: #### 5 7021-8 ####LOPEZ LABORATORYCLIA [id number] [address] Eosinophils/100 WBC (Bld) 1.2 % Normal [facility] Comment on above: Order Comment: Speci men Type: BLOOD SPECIMENOrdering Facility: [facility] [place] Address: [address] [place] [address] Performed By: #### 5 7021-8 ####LOPEZ LABORATORYCLIA [id number] [address] Erythrocyte distribution width (RBC) [Ratio] 12.8 % Normal 11.5-15.0 [facility] Comment on above: Order Comment: Speci men Type: BLOOD SPECIMENOrdering Facility: [facility] [place] Address: [address] [place] [address] Performed By: #### 5 7021-8 ####LOPEZ LABORATORYCLIA [id number] [address] OF [place] Hematocrit (Bld) [Volume fraction] 37.1 % Normal 36.0-46.0 [facility] Comment on above: Order Comment: Speci men Type: BLOOD SPECIMENOrdering Facility: [facility] [place] Address: [address] [place] [address] Performed By: #### 5 7021-8 ####LOPEZ LABORATORYCLIA [id number] [address] [place] Hemoglobin (Bld) [Mass/Vol] 12.4 g/dL Normal 11.5-15.5 [facility] Comment on above: Order Comment: Speci men Type: BLOOD SPECIMENOrdering Facility: [facility] [place] Address: [address] [place] [address] Performed By: #### 5 7021-8 ####LOPEZ LABORATORYCLIA [id number] [address] [place] Immature granulocytes (Bld) [#/Vol] 10*3/uL Normal <0.10 [facility] Comment on above: Order Comment: Speci men Type: BLOOD SPECIMENOrdering Facility: [facility] [place] Address: [address] [place] [address] Performed By: #### 5 7021-8 ####LOPEZ LABORATORYCLIA [id number] [address] OF [place] Immature granulocytes/100 WBC (Bld) 0.0 % Normal [facility] Comment on above: Order Comment: Speci men Type: BLOOD SPECIMENOrdering Facility: [facility] [place] Address: [address] [place] [address] Performed By: #### 5 7021-8 ####LOPEZ LABORATORYCLIA [id number] [place] [address] [place] Lymphocytes (Bld) [#/Vol] 2.38 10*3/uL Normal 1.00-4.00 [facility] Comment on above: Order Comment: Speci men Type: BLOOD SPECIMENOrdering Facility: [facility] [place] Address: [address] [place] [address] Performed By: #### 5 7021-8 ####LOPEZ LABORATORYCLIA [id number] [place] [address] [place] [facility] [place] Lymphocytes/100 WBC (Bld) 46.0 % Normal [facility] Comment on above: Order Comment: Speci men Type: BLOOD SPECIMENOrdering Facility: [facility] [place] Address: [address] [place] [address] Performed By: #### 5 7021-8 ####LOPEZ LABORATORYCLIA [id number] [address] STATES [facility] MCH (RBC) [Entitic mass] 33.2 pg Normal 26.0-34.0 [facility] Comment on above: Order Comment: Speci men Type: BLOOD SPECIMENOrdering Facility: [facility] [place] Address: [address] [place] [address] Performed By: #### 5 7021-8 ####LOPEZ LABORATORYCLIA [id number] [address] [place] MCHC (RBC) [Mass/Vol] 33.4 g/dL Normal 30.5-36.0 [facility] Comment on above: Order Comment: Speci men Type: BLOOD SPECIMENOrdering Facility: [facility] [place] Address: [address] [place] [address] Performed By: #### 5 7021-8 ####LOPEZ LABORATORYCLIA [id number] [address] MCV (RBC) [Entitic vol] 99.5 fL Normal 80.0-100.0 [facility] Comment on above: Order Comment: Speci men Type: BLOOD SPECIMENOrdering Facility: [facility] [place] Address: [address] [place] [address] Performed By: #### 5 7021-8 ####LOPEZ LABORATORYCLIA [id number] [address] Monocytes (Bld) [#/Vol] 0.58 10*3/uL Normal <0.87 [facility] Comment on above: Order Comment: Speci men Type: BLOOD SPECIMENOrdering Facility: [facility] [place] Address: [address] [place] [address] Performed By: #### 5 7021-8 ####LOPEZ LABORATORYCLIA [id number] [address] [place] Monocytes/100 WBC (Bld) 11.2 % Normal [facility] Comment on above: Order Comment: Speci men Type: BLOOD SPECIMENOrdering Facility: [facility] [place] Address: [address] [place] [address] Performed By: #### 5 7021-8 ####LOPEZ LABORATORYCLIA [id number] [place] [address] [place] Neutrophils (Bld) [#/Vol] 2.12 10*3/uL Normal 1.45-7.50 [facility] Comment on above: Order Comment: Speci men Type: BLOOD SPECIMENOrdering Facility: [facility] [place] Address: [address] [place] [address] Performed By: #### 5 7021-8 ####LOPEZ LABORATORYCLIA [id number] [address] [place] Neutrophils/100 WBC (Bld) 41.0 % Normal [facility] Comment on above: Order Comment: Speci men Type: BLOOD SPECIMENOrdering Facility: [facility] [place] Address: [address] [place] [address] Performed By: #### 5 7021-8 ####LOPEZ LABORATORYCLIA [id number] [place] [address] [place] Nucleated RBC (Bld) [#/Vol] 10*3/uL Normal <0.01 [facility] Comment on above: Order Comment: Speci men Type: BLOOD SPECIMENOrdering Facility: [facility] [place] Address: [address] [place] [address] Performed By: #### 5 7021-8 ####LOPEZ LABORATORYCLIA [id number] [place] [address] [place] Nucleated RBC/100 WBC (Bld) [Ratio] 0.0 /100 WBC Normal [facility] Comment on above: Order Comment: Speci men Type: BLOOD SPECIMENOrdering Facility: [facility] [place] Address: [address] [place] [address] Performed By: #### 5 7021-8 ####LOPEZ LABORATORYCLIA [id number] [address] [place] Platelet mean volume (Bld) [Entitic vol] 10.3 fL Normal 9.0-12.7 [facility] Comment on above: Order Comment: Speci men Type: BLOOD SPECIMENOrdering Facility: [facility] [place] Address: [address] [place] [address] Performed By: #### 5 7021-8 ####SIPSEY LABORATORYCLIA [id number] [place] [address] [place] Platelets (Bld) [#/Vol] 218 10*3/uL Normal 150-400 [facility] Comment on above: Order Comment: Speci men Type: BLOOD SPECIMENOrdering Facility: [facility] [place] Address: [address] [place] [address] Performed By: #### 5 7021-8 ####SIPSEY LABORATORYCLIA [id number] [address] RBC (Bld) [#/Vol] 3.73 10*6/uL Low 3.90-5.20 [facility] Comment on above: Order Comment: Speci men Type: BLOOD SPECIMENOrdering Facility: [facility] [place] Address: [address] [place] [address] Performed By: #### 5 7021-8 ####SIPSEY LABORATORYCLIA [id number] [address] WBC (Bld) [#/Vol] 5.17 10*3/uL Normal 3.70-11.00 [facility] Comment on above: Order Comment: Speci men Type: BLOOD SPECIMENOrdering Facility: [facility] [place] Address: [address] [place] [address] Performed By: #### 5 7021-8 ####LOPEZ LABORATORYCLIA [id number] [address] CNDSon 11-12-2022 CNDS HNO ID: [id number] Author: Manohar Rao MD Service: Hospital Medicine Author Type: Physician Type: Discharge Summary Filed: 11/12/2022 6:50 PM Note Text: DISCHARGE SUMMARY PATIENT NAME: Elena Galeano ADMISSION DATE: 11/09/2022 DISCHARGE DATE: 11/12/2022 ATTENDING PHYSICIAN: Manohar Rao MD Code Status: Prior PCP: Fernie Paredes DO Highest Readmission Risk Score: 15 The 30 day readmissions risk score is derived from an internally validated risk model which evaluates patient level characteristics, utilization history, medication orders and lab results up until the day of discharge. Patients with a score of 40 or above are considered highest risk for readmission. Specific patient level drivers will be listed at the bottom of the summary. TRANSITIONS OF CARE CRITICAL ISSUES: [place] MEDICATION CHANGES: Patient started on Eliquis, increase dose of lisinopril LAB MONITORING NEEDED: Not applicable IMAGING FOLLOW-UP: Not applicable LABS AND PROCEDURES PENDING AT DISCHARGE: No pending results. FOLLOW UP: Patient was instructed to follow-up with primary care physician and gravity prospecting observer helper soon after discharge from the hospital REASON FOR HOSPITALIZATION: Elevated blood pressure PRINCIPAL DIAGNOSIS: Hypertensive urgency SECONDARY DIAGNOSIS: Principal Problem (Resolved): Hypertensive urgency POA: Yes Active Problems: Central artery occlusion of retina, left POA: Yes Obesity (BMI 30-39.9) POA: Yes Essential hypertension POA: Yes PERCY (obstructive sleep apnea) POA: Yes Carotid stenosis, bilateral POA: Yes Anxiety POA: Yes HOSPITAL COURSE: A 62-year-old female with past medical history of PERCY, central artery occlusion, obesity, hypertension, bilateral carotid stenosis, anxiety, depression, history of PVCs, presented to the hospital on November 09 with complaints of mild headache, lightheadedness and mild shortness of breath. Patient was found to be extremely hypertensive with systolic blood pressure in the 200s. Patient was started on a Nicardipine drip and was admitted to the intensive care unit for further extensive treatment and monitoring. In the ICU patient was scontinue on nicardipine. Patient's blood pressure medications were restarted home Coreg, lisinopril, aspirin, Plavix and Maxide. Following blood pressure improved and was considered stable for the floor. Cardiology was consulted in the morning for Need for possible long-term anticoagulation. Patient apparently did have a short run of atrial fibrillation with RVR during her hospitalization. Patient was started on Eliquis 5 mg twice daily. Per cardiology patient can stop aspirin and continue with Eliquis and Plavix. Patient was transferred to the floor and benefited from increased dose of lisinopril to 10 mg once daily. Patient was normotensive on the floor. Patient was instructed to have close follow-up with her primary care physician and gravity prospecting observer helper soon after discharge from the hospital to titrate medications accordingly. Patient is also to have a Holter study done by cardiology as an outpatient. Patient's hospital course and follow-ups were explained to both patient and patient's who are in understanding. Patient was discharged home on November 12, 2022. OPERATIONS/PROCEDURE DURING THIS HOSPITALIZATION: * No surgery found * No other procedures CONSULTS DURING HOSPITALIZATION: No orders of the defined types were placed in this encounter. PATIENT CONDITION AT DISCHARGE: Stable ADVANCE CARE PLANNING DISCUSSION (if applicable): N/A DISCHARGE DISPOSITION: Home with Self Group Home with Self Care Physical Exam Performed Constitutional: In no apparent distress. Vital signs stable Eye: Pupils are equal. Extraocular motions intact ENMT: No visible external trauma. Hearing grossly intact. Neck: No Jugular Vein Distention Cardiovascular: Regular rate and rhythm. S1 and S2, without murmurs, without gallops, without rubs Respiratory: Chest with clear breath sounds bilaterally. No wheezes, no rales, no rhonchi Gastrointestinal: Soft, without detectable tenderness. No sign of distention. No rebound or guarding, no masses palpated. Bowel sounds present Genitourinary: Bladder soft Musculoskeletal: Good range of motion of all major joints. Extremities without clubbing, without cyanosis, without edema Integumentary: No rash, no bruising, no lesions Neurologic: Oriented to person, place and time. No focal sensory or strength deficits. Speech normal. Follows commands. Psychiatric: Calm, cooperative, appropriate WOUND/SURGICAL SITE CARE: None SUPPLIES OR EQUIPMENT: None DIET: Low Salt Low Cholesterol ACTIVITY AND EXERCISE: Limited to: As tolerated ADDITIONAL INFORMATION: None FOLLOW UP APPOINTMENTS: Future Appointments Date Time Provider Department Center 11/22/2022 10:30 AM Simona Ji APRN.JULISSA SZYMANSKI [facility] 11/24/2022 9:35 AM [facility] (more content not included)... Normal [facility] Magnesium SerPl-mCncon 11-12 Magnesium [Mass/Vol] 1.8 mg/dL Normal 1.7-2.3 [facility] Comment on above: Order Comment: Speci men Type: BLOOD SPECIMENOrdering Facility: [facility] [place] Address: [place] [address] Performed By: #### 2 777-1, 50604-3, ####LOPEZ LABORATORYCLIA [id number] [place] [address] [place] Phosphate SerPl-mCncon 11-12 Phosphate [Mass/Vol] 4.6 mg/dL Normal 2.7-4.8 [facility] Comment on above: Order Comment: Speci men Type: BLOOD SPECIMENOrdering Facility: [facility] [place] Address: [place] [address] Performed By: #### 2 777-1, 08513-2, ####LOPEZ LABORATORYCLIA [id number] [place] [address] [place] THERAPY NTon 11-12-2022 THERAPY NT HNO ID: [id number] Author: Dragan Norman PT Service: Physical Therapy Author Type: Physical Therapist Type: Therapy (PT/OT/Speech/Resp) Filed: 11/12/2022 1:44 PM Note Text: PHYSICAL THERAPY MISSED VISIT SERVICE DATE: 11/12/2022 SERVICE TIME: 1155 to 1204 ROOM: [place] [address] Patient not seen due to Declined. Patient in bed with spouse at bedside. She denies any lingering symptoms, that issues she was experiencing on admission have resolved. She denies UE/LE weakness, denies dizziness or imbalance. Denies new changes in her vision. States she is getting up to/from the restroom without issue. Spouse concurs. Both pt/spouse indicate patient is safe for home-going and they have no concerns other than her BP. Discussed home monitoring of BP and patient states she has a device but she feels it is old and unreliable/inaccurate. Discussed obtaining a new BP machine. Pt with recent stroke that affected her LEFT vision. She is concerned over recurrent strokes. Discussed relaxation techniques and monitoring BP at home and inform her PCP of any issues/changes of her BP. Patient and spouse agreed to defer PT evaluation as they feel she has no PT needs. SIGNATURE: Dragan Norman PT PATIENT NAME: Elena Galeano DATE: November 12, 2022 TIME: 1:38 PM Normal [facility] Basic metabolic 2000 panelon 11-11-2022 Anion gap [Moles/Vol] 8 mmol/L Low 9-18 [facility] Comment on above: Order Comment: Speci men Type: BLOOD SPECIMENOrdering Facility: [facility] [place] Address: [address] [place] [address] Performed By: #### 1 9123-9, 12898-6, 2776- ####SIPSEY LABORATORYCLIA [id number] [place] [address] [place] Calcium [Mass/Vol] 9.4 mg/dL Normal 8.5-10.2 [facility] Comment on above: Order Comment: Speci men Type: BLOOD SPECIMENOrdering Facility: [facility] [place] Address: [address] [place] [address] Performed By: #### 1 9123-9, 50418-0, 2776- ####LOPEZ LABORATORYCLIA [id number] [place] [address] [place] Chloride [Moles/Vol] 104 mmol/L Normal 97-105 [facility] Comment on above: Order Comment: Speci men Type: BLOOD SPECIMENOrdering Facility: [facility] [place] Address: [address] [place] [address] Performed By: #### 1 9123-9, 84707-8, 2776- ####[facility] LABORATORYCLIA [id number] [place] [address] [place] CO2 [Moles/Vol] 29 mmol/L Normal 22-30 [facility] Comment on above: Order Comment: Speci men Type: BLOOD SPECIMENOrdering Facility: [facility] [place] Address: [address] [place] [address] Performed By: #### 1 9123-9, 57974-8, 2776- ####[facility] LABORATORYCLIA [id number] [address] [place] Creatinine [Mass/Vol] 0.93 mg/dL Normal 0.58-0.96 [facility] Comment on above: Order Comment: Speci men Type: BLOOD SPECIMENOrdering Facility: [facility] [place] Address: [address] [place] [address] Performed By: #### 1 9123-9, 80966-2, 277- ####LOPEZ LABORATORYCLIA [id number] [place] [address] [place] ESTIMATED GLOMERULAR FILTRATION RATE 69 mL/min/1.73m??? Normal >=60 [facility] Comment on above: Order Comment: Marcusprema ramey Type: BLOOD SPECIMENOrdering Facility: [facility] [place] Address: [address] [place], [place] [address] Result Comment: Nay mated Glomerular Filtration Rate (eGFR) is calculated using the 2020 CKD-EPI creatinine equation. This equation utilizes serum creatinine, sex, and age as parameters. The creatinine assay has traceable calibration to isotope dilution-mass spectrometry. Refer to KDIGO guidelines for clinical interpretation. In patients with unstable renal function, e.g. those with acute kidney injury, the eGFR may not accurately reflect actual GFR. Performed By: #### 1 9123-9, 41259-8, 27704-23 ####LOPE[facility] LABORATORYCLIA [id number] [place] [address] [place] Glucose [Mass/Vol] 123 mg/dL High 74-99 [facility] Comment on above: Order Comment: Brian ramey Type: BLOOD SPECIMENOrdering Facility: [facility] [place] Address: [address] [place] [address] Result Comment: The [place] Diabetes Association (ADA) provides guidance for cutoff values for fasting glucose and random glucose. The ADA defines fasting as no caloric intake for at least 8 hours. Fasting plasma glucose results between 100 to 125 mg/dL indicate increased risk for diabetes (prediabetes). Fasting plasma glucose results greater than or equal to 126 mg/dL meet the criteria for diagnosis of diabetes. In the absence of unequivocal hyperglycemia, results should be confirmed by repeat testing. In a patient with classic symptoms of hyperglycemia or hyperglycemic crisis, random plasma glucose results greater than or equal to 200 mg/dL meet the criteria for diagnosis of diabetes. Reference: Standards of Medical Care in Diabetes 2016, [place] [employer] Association. Diabetes Care. 2016.39(Suppl 1). Performed By: #### 1 9123-9, 69657-0, 2776-10 ####LOPE[facility] LABORATORYCLIA [id number] [place] [address] [place] Potassium [Moles/Vol] 3.9 mmol/L Normal 3.7-5.1 [facility] Comment on above: Order Comment: Speci men Type: BLOOD SPECIMENOrdering Facility: [facility] [place] Address: [address] [place] [address] Performed By: #### 1 9123-9, 82465-1, 2776- ####[facility] LABORATORYCLIA [id number] [place] [address] [place] Sodium [Moles/Vol] 141 mmol/L Normal 136-144 [facility] Comment on above: Order Comment: Speci men Type: BLOOD SPECIMENOrdering Facility: [facility] [place] Address: [address] [place] [address] Performed By: #### 1 9123-9, 90214-4, 2776-10 ####[facility] LABORATORYCLIA [id number] [address] [place] Urea nitrogen [Mass/Vol] 9 mg/dL Normal 7-21 [facility] Comment on above: Order Comment: Speci men Type: BLOOD SPECIMENOrdering Facility: [facility] [place] Address: [address] [place] [address] Performed By: #### 1 9123-9, 59755-8, 2776-10 ####L[facility] LABORATORYCLIA [id number] [place] [address] [place] CBC W Auto Differential pane l (Bld)on 11-11-2022 Basophils (Bld) [#/Vol] 0.03 10*3/uL Normal <0.11 [facility] Comment on above: Order Comment: Speci men Type: BLOOD SPECIMEN Ordering Facility: [facility] [place] Address: [address] [place] [address] Performed By: #### 5 7021-8 #### [facility] CLIA [id number] [address] [place] Basophils/100 WBC (Bld) 0.6 % Normal [facility] Comment on above: Order Comment: Speci men Type: BLOOD SPECIMEN Ordering Facility: [facility] [place] Address: [address] [place] [address] Performed By: #### 5 7021-8 #### [facility] CLIA [id number] [address] Differential cell count method Nom (Bld) Auto Normal [facility] Comment on above: Order Comment: Speci men Type: BLOOD SPECIMEN Ordering Facility: [facility] [place] Address: [address] [address] Performed By: #### 5 7021-8 #### [facility] CLIA [id number] [address] [place] Eosinophils (Bld) [#/Vol] 0.07 10*3/uL Normal <0.46 [facility] Comment on above: Order Comment: Speci men Type: BLOOD SPECIMEN Ordering Facility: [facility] [place] Address: [address] [place] [address] Performed By: #### 5 7021-8 #### [facility] CLIA [id number] [address] [place] Eosinophils/100 WBC (Bld) 1.5 % Normal [facility] Comment on above: Order Comment: Speci men Type: BLOOD SPECIMEN Ordering Facility: [facility] [place] Address: [address] [place] [address] Performed By: #### 5 7021-8 #### [facility] CLIA [id number] [address] Erythrocyte distribution width (RBC) [Ratio] 12.8 % Normal 11.5-15.0 [facility] Comment on above: Order Comment: Speci men Type: BLOOD SPECIMEN Ordering Facility: [facility] [place] Address: [address] [place] [address] Performed By: #### 5 7021-8 #### [facility] CLIA [id number] [address] [place] Hematocrit (Bld) [Volume fraction] 35.2 % Low 36.0-46.0 [facility] Comment on above: Order Comment: Speci men Type: BLOOD SPECIMEN Ordering Facility: [facility] [place] Address: [address] [place] [address] Performed By: #### 5 7021-8 #### [facility] CLIA [id number] [address] [place] Hemoglobin (Bld) [Mass/Vol] 11.8 g/dL Normal 11.5-15.5 [facility] Comment on above: Order Comment: Speci men Type: BLOOD SPECIMEN Ordering Facility: [facility] [place] Address: [address] [place] [address] Performed By: #### 5 7021-8 #### [facility] CLIA [id number] [address] [place] Immature granulocytes (Bld) [#/Vol] 10*3/uL Normal <0.10 [facility] Comment on above: Order Comment: Speci men Type: BLOOD SPECIMEN Ordering Facility: [facility] [place] Address: [address] [place] [address] Performed By: #### 5 7021-8 #### [facility] CLIA [id number] [address] [place] Immature granulocytes/100 WBC (Bld) 0.4 % Normal [facility] Comment on above: Order Comment: Speci men Type: BLOOD SPECIMEN Ordering Facility: [facility] [place] Address: [address] [place] [address] Performed By: #### 5 7021-8 #### [facility] CLIA [id number] [address] [place] [address] [place] Lymphocytes (Bld) [#/Vol] 2.21 10*3/uL Normal 1.00-4.00 [facility] Comment on above: Order Comment: Speci men Type: BLOOD SPECIMEN Ordering Facility: [facility] [place] Address: [address] [place] [address] Performed By: #### 5 7021-8 #### [facility] CLIA [id number] [address] [place] Lymphocytes/100 WBC (Bld) 47.6 % Normal [facility] Comment on above: Order Comment: Speci men Type: BLOOD SPECIMEN Ordering Facility: [facility] [place] Address: [address] [address] Performed By: #### 5 7021-8 #### [facility] CLIA [id number] [address] MCH (RBC) [Entitic mass] 33.1 pg Normal 26.0-34.0 [facility] Comment on above: Order Comment: Speci men Type: BLOOD SPECIMEN Ordering Facility: [facility] [place] Address: [address] [address] Performed By: #### 5 7021-8 #### [facility] CLIA [id number] [address] MCHC (RBC) [Mass/Vol] 33.5 g/dL Normal 30.5-36.0 [facility] Comment on above: Order Comment: Speci men Type: BLOOD SPECIMEN Ordering Facility: [facility] [place] Address: [address] [address] Performed By: #### 5 7021-8 #### [facility] CLIA [id number] [address] MCV (RBC) [Entitic vol] 98.9 fL Normal 80.0-100.0 [facility] Comment on above: Order Comment: Speci men Type: BLOOD SPECIMEN Ordering Facility: [facility] [place] Address: [address] [address] Performed By: #### 5 7021-8 #### [facility] CLIA [id number] [address] Monocytes (Bld) [#/Vol] 0.47 10*3/uL Normal <0.87 [facility] Comment on above: Order Comment: Speci men Type: BLOOD SPECIMEN Ordering Facility: [facility] [place] Address: [address] [place] [address] Performed By: #### 5 7021-8 #### [facility] CLIA [id number] [address] Monocytes/100 WBC (Bld) 10.1 % Normal [facility] Comment on above: Order Comment: Speci men Type: BLOOD SPECIMEN Ordering Facility: [facility] [place] Address: [address] [address] Performed By: #### 5 7021-8 #### [facility] CLIA [id number] [address] [place] Neutrophils (Bld) [#/Vol] 1.84 10*3/uL Normal 1.45-7.50 [facility] Comment on above: Order Comment: Speci men Type: BLOOD SPECIMEN Ordering Facility: [facility] [place] Address: [address] [address] Performed By: #### 5 7021-8 #### [facility] CLIA [id number] [address] Neutrophils/100 WBC (Bld) 39.8 % Normal [facility] Comment on above: Order Comment: Speci men Type: BLOOD SPECIMEN Ordering Facility: [facility] [place] Address: [address] [address] Performed By: #### 5 7021-8 #### [facility] CLIA [id number] [address] [place] [address] [place] Nucleated RBC (Bld) [#/Vol] 10*3/uL Normal <0.01 [facility] Comment on above: Order Comment: Speci men Type: BLOOD SPECIMEN Ordering Facility: [facility] [place] Address: [address] [address] Performed By: #### 5 7021-8 #### [facility] CLIA [id number] [address] Nucleated RBC/100 WBC (Bld) [Ratio] 0.0 /100 WBC Normal [facility] Comment on above: Order Comment: Speci men Type: BLOOD SPECIMEN Ordering Facility: [facility] [place] Address: [address] [place] [address] Performed By: #### 5 7021-8 #### [facility] CLIA [id number] [address] [place] Platelet mean volume (Bld) [Entitic vol] 10.5 fL Normal 9.0-12.7 [facility] Comment on above: Order Comment: Speci men Type: BLOOD SPECIMEN Ordering Facility: [facility] [place] Address: [address] [place] [address] Performed By: #### 5 7021-8 #### [facility] CLIA [id number] [address] [place] Platelets (Bld) [#/Vol] 211 10*3/uL Normal 150-400 [facility] Comment on above: Order Comment: Speci men Type: BLOOD SPECIMEN Ordering Facility: [facility] [place] Address: [address] [place] [address] Performed By: #### 5 7021-8 #### [facility] CLIA [id number] [address] [place] RBC (Bld) [#/Vol] 3.56 10*6/uL Low 3.90-5.20 [facility] Comment on above: Order Comment: Speci men Type: BLOOD SPECIMEN Ordering Facility: [facility] [place] Address: [address] [place] [address] Performed By: #### 5 7021-8 #### [facility] CLIA [id number] [address] WBC (Bld) [#/Vol] 4.64 10*3/uL Normal 3.70-11.00 [facility] Comment on above: Order Comment: Speci men Type: BLOOD SPECIMEN Ordering Facility: [facility] [place] Address: [address] [place] [address] Performed By: #### 5 7021-8 #### [facility] CLIA [id number] [address] CONSULT PROGon 11-11-2022 CONSULT PROG HNO ID: [id number] Author: Dawn Frost DO Service: Cardiovascular Medicine Author Type: Physician Type: Consult Progress Note Filed: 11/11/2022 12:41 PM Note Text: [facility]ARDI[facility]ICINE CONSULT PROGRESS NOTE Elena Galeano [id number] PRIMARY SERVICE: MICU CONSULTING SERVICE: Cardiovascular Medicine: DATE OF ADMISSION: 11/09/2022 DATE OF SERVICE: 11/11/2022 REASON FOR CONSULT Possible need for anticoagulation HISTORY OF PRESENT ILLNESS Elena Galeano is a 62 year old female with a history of COPD, recent PSG 10/28/22 c/w PERCY, hypertension, hyperlipidemia, CLL in remission, non-Hodgkin lymphoma s/p chemotherapy in remission, GERD, frequent PVCs mistaken for pAF in the past and no documentation of paroxysmal atrial fibrillation, recent ischemic lacunar infarct 10/30/22 of R frontal periventricular white matter along with L central retinal artery occlusion and vision loss placed on ASA, Plavix x 21 days per neuro), bilateral carotid stenosis (R 30%, L 60%), anxiety, osteoarthritis, gout, B12 deficiency, CKD II, obesity, ex smoker (quit 2012), depression, who presented to ED 11/09/22 with complaints of headache, blurred vision and dizziness and nausea. She was to get a monitor placed today in cardiology office but due to symptoms was sent to ED. She states her SBP usually runs around 120 at home however was elevated in ED and then transferred to ICU. She briefly received Cardene for significant hypertension of 241/108. CT brain negative for acute abnormality, EKG showing NSR, hstn 13 -> 14 -> 17. She received 1L NS, 10 mg Labetalol, 4 mg Morphine, 1 mg Ativan, 10 mg Amlodipine and initiated Nicardipine infusion She has seen cardiology for frequent PVCs for many years but despite holter monitors and hospital Tele has not had any documentation of atrial fibrillation -until now. This morning I reviewed all of her telemetry since admit and at 8:37 this am it appears she did have a brief run of atrial fibrillation with RVR 126 bpm. She states she has been in bed or chair all morning and had no symptoms. PAST MEDICAL HISTORY PAST MEDICAL HISTORY Diagnosis Date Anxiety Depression Hypertension Lymphoma (HCC) 10/2010 Right knee pain 06/12/2014 PAST SURGICAL HISTORY Procedure Laterality Date ANESTH OPEN/SURG ARTHRS TOTAL KNEE ARTHROPLASTY 05/19/2015 right TKA APPENDECTOMY ARTHROSCOPY KNEE SUBCHONDROPLAST 10/11/2014 right knee medial menisectomy AND femoral tibial subchondroplasty COLONOSCOPY FLX DX W/COLLJ SPEC WHEN PFRMD 05/31/13 Colonoscopy EGD 2013 PAST SURGICAL HISTORY OF left ovary and fallopian tube removed for a benign cyst, done in her 20's PAST SURGICAL HISTORY OF Pilonidal cyst removed PAST SURGICAL HISTORY OF 01/2013 port a cath, left , 2011 with revision in 2013 TONSILLECTOMY PRIMARY/SECONDARY Tonsillectomy FAMILY HISTORY FAMILY HISTORY Problem Relation Age of Onset None Mother None Father None Sister X 3 None Brother X 2 SOCIAL HISTORY Social History Tobacco Use Smoking status: Former Packs/day: 0.50 Years: 30.00 Pack years: 15.00 Types: Cigarettes Quit date: 01/22/2013 Years since quittin.8 Smokeless tobacco: Never Vaping Use Vaping Use: Never used Substance Use Topics Alcohol use: No Drug use: No HOME MEDICATIONS clopidogrel (PLAVIX) 75 mg tabletTake 1 tablet by mouth once daily for 21 doses.Disp: 21 tabletRfl: 0 lisinopril (ZESTRIL, PRINIVIL) 5 mg tabletTake 1 tablet by mouth once daily.Disp: 30 tabletRfl: 0 traZODone (DESYREL) 100 mg tabletTake 100 mg by mouth.Disp: Rfl: pantoprazole DR (PROTONIX) 40 mg tabletTake 40 mg by mouth.Disp: Rfl: buPROPion XL (WELLBUTRIN XL) 300 mg 24 hr tabletTake 300 mg by mouth.Disp: Rfl: escitalopram oxalate (LEXAPRO) 20 mg tabletTake 1 tablet by mouth once daily.Disp: Rfl: carvedilol (COREG) 12.5 mg tabletTake 12.5 mg by mouth.Disp: Rfl: Fenofibrate (LOFIBRA) 160 mg tabletTake 1 tablet by mouth once daily.Disp: Rfl: REPATHA SURECLICK 140 mg/mL pen injectorInject 1 mL under the skin every 14 days.Disp: Rfl: albuterol HFA (PROVENTIL HFA, VENTOLIN HFA) 90 mcg/actuation inhalerInhale 2 Puffs as instructed every 6 hours as needed.Disp: Rfl: aspirin, enteric coated (ASPIRIN, ENTERIC COATED) 81 mg EC tabletTake 81 mg by mouth.Disp: Rfl: fenofibrate nanocrystallized (TRICOR) 145 mg tabletTake 1 tablet by mouth once daily.Disp: 90 tabletRfl: 3 triamterene-hydrochlor othiazide 37.5-25 mg per tabletTake 1 tablet by mouth once daily.Disp: Rfl: INPATIENT MEDICATIONS Current Facility-Administered Medications Medication Dose Route Frequency lisinopril 5 mg tab(s) (ZESTRIL, PRINIVIL) 5 mg ORAL DAILY carvedilol 12.5 mg tab(s) (COREG) 12.5 mg ORAL BID w MEALS albuterol HFA 90 mcg/actuation 2 Puff (PROVENTIL HFA, VENTOLIN HFA) 2 Puff INHALATION q 6 H PRN fenofibrate 200 mg cap(s) (LOFIBRA) 200 mg ORAL DAILY buPR (more content not included)... Normal [facility] Magnesium [Mass/Vol] 1.9 mg/dL Normal 1.7-2.3 [facility] Comment on above: Order Comment: Speci men Type: BLOOD SPECIMENOrdering Facility: [facility] [place] Address: [address] [address] Performed By: #### 1 9123-9, 73347-3, 277- ####[facility] LABORATORYCLIA [id number] [place] [address] [place] [facility]ate [facility] Phosphate [Mass/Vol] 4.1 mg/dL Normal 2.7-4.8 [facility] Comment on above: Order Comment: Speci men Type: BLOOD SPECIMENOrdering Facility: [facility] [place] Address: [address] [address] Performed By: #### 1 9123-9, 20898-1, 277- ####[facility] LABORATORYCLIA [id number] [place] [address] [place] Basic metabolic 2000 panelon 11-10-2022 Anion gap [Moles/Vol] 9 mmol/L Normal 07-11 [facility] Comment on above: Order Comment: Speci men Type: BLOOD SPECIMENOrdering Facility: [facility] [place] Address: [address] [address] Performed By: #### 2 4321-2, 98019-3, 277- ####[facility] LABORATORYCLIA [id number] [place] [address] [place] Calcium [Mass/Vol] 8.8 mg/dL Normal 8.5-10.2 [facility] Comment on above: Order Comment: Speci men Type: BLOOD SPECIMENOrdering Facility: [facility] [place] Address: [address] [address] Performed By: #### 2 4321-2, , 2776-10 ####[facility]ORATORYCLIA [id number] [place] [address] [place] Chloride [Moles/Vol] 105 mmol/L Normal 97-105 [facility] Comment on above: Order Comment: Speci men Type: BLOOD SPECIMENOrdering Facility: [facility] [place] Address: [address] [address] Performed By: #### 2 4321-2, , 2776-10 ####[facility]ORATORYCLIA [id number] [place] [address] [place] CO2 [Moles/Vol] 31 mmol/L High 22-30 [facility] Comment on above: Order Comment: Speci men Type: BLOOD SPECIMENOrdering Facility: [facility] [place] Address: [address] [place] [address] Performed By: #### 2 4321-2, , 2776-10 ####[facility]ORATORYCLIA [id number] [place] [address] [place] Creatinine [Mass/Vol] 0.84 mg/dL Normal 0.58-0.96 [facility] Comment on above: Order Comment: Speci men Type: BLOOD SPECIMENOrdering Facility: [facility] [place] Address: [address] [place] [address] Performed By: #### 2 4321-2, , 2776-10 ####[facility]ORATORYCLIA [id number] [address] [place] ESTIMATED GLOMERULAR FILTRATION RATE 78 mL/min/1.73m??? Normal >=60 [facility] Comment on above: Order Comment: Speci men Type: BLOOD SPECIMENOrdering Facility: [facility] [place] Address: [address] [place] [address] Result Comment: Nay mated Glomerular Filtration Rate (eGFR) is calculated using the 2020 CKD-EPI creatinine equation. This equation utilizes serum creatinine, sex, and age as parameters. The creatinine assay has traceable calibration to isotope dilution-mass spectrometry. Refer to KDIGO guidelines for clinical interpretation. In patients with unstable renal function, e.g. those with acute kidney injury, the eGFR may not accurately reflect actual GFR. Performed By: #### 2 4321-2, , 2776-10 ####[facility] LABORATORYCLIA [id number] [place] [address] [place] Glucose [Mass/Vol] 111 mg/dL High 74-99 [facility] Comment on above: Order Comment: Brian ramey Type: BLOOD SPECIMENOrdering Facility: [facility] [place] Address: [address] [id number] Result Comment: The [place] [employer] (ADA) provides guidance for cutoff values for fasting glucose and random glucose. The ADA defines fasting as no caloric intake for at least 8 hours. Fasting plasma glucose results between 100 to 125 mg/dL indicate increased risk for diabetes (prediabetes). Fasting plasma glucose results greater than or equal to 126 mg/dL meet the criteria for diagnosis of diabetes. In the absence of unequivocal hyperglycemia, results should be confirmed by repeat testing. In a patient with classic symptoms of hyperglycemia or hyperglycemic crisis, random plasma glucose results greater than or equal to 200 mg/dL meet the criteria for diagnosis of diabetes. Reference: Standards of Medical Care in Diabetes 2016, [place] [employer]. Diabetes Care. 2016.39(Suppl 1). Performed By: #### 2 4321-2, , 2776-10 ####[facility]ORATORYCLIA [id number] [place] [address] [place] Potassium [Moles/Vol] 4.4 mmol/L Normal 3.7-5.1 [facility] Comment on above: Order Comment: Brian ramey Type: BLOOD SPECIMENOrdering Facility: [facility] [place] Address: [address] [place] [address] Performed By: #### 2 4321-2, , 2776-10 ####[facility]ORATORYCLIA [id number] [place] [address] [place] Sodium [Moles/Vol] 145 mmol/L High 136-144 [facility] Comment on above: Order Comment: Speci men Type: BLOOD SPECIMENOrdering Facility: [facility] [place] Address: [address] [address] Performed By: #### 2 4321-2, , 2776-10 ####[facility] LABORATORYCLIA [id number] [address] STATES [facility] Urea nitrogen [Mass/Vol] 9 mg/dL Normal 7-21 [facility] Comment on above: Order Comment: Speci men Type: BLOOD SPECIMENOrdering Facility: [facility] [place] Address: [address] [address] Performed By: #### 2 4321-2, , 2776-10 ####L[facility]Z LABORATORYCLIA [id number] [address] [place] CBC panel Auto (Bld)on 11-10 Erythrocyte distribution width (RBC) [Ratio] 13.2 % Normal 11.5-15.0 [facility] Comment on above: Order Comment: Speci men Type: BLOOD SPECIMENOrdering Facility: [facility] [place] Address: [address] [address] Performed By: #### 5 8410-2 ####L[facility] LABORATORYCLIA [id number] [address] [place] Hematocrit (Bld) [Volume fraction] 35.0 % Low 36.0-46.0 [facility] Comment on above: Order Comment: Speci men Type: BLOOD SPECIMENOrdering Facility: [facility] [place] Address: [address] [address] Performed By: #### 5 8410-2 ####LOPE[facility] LABORATORYCLIA [id number] [address] [place] Hemoglobin (Bld) [Mass/Vol] 11.2 g/dL Low 11.5-15.5 [facility] Comment on above: Order Comment: Speci men Type: BLOOD SPECIMENOrdering Facility: [facility] [place] Address: [address] [address] Performed By: #### 5 8410-2 ####LOPEZ LABORATORYCLIA [id number] [address] MCH (RBC) [Entitic mass] 32.3 pg Normal 26.0-34.0 [facility] Comment on above: Order Comment: Speci men Type: BLOOD SPECIMENOrdering Facility: [facility] [place] Address: [address] [place] [address] Performed By: #### 5 8410-2 ####LOPEZ LABORATORYCLIA [id number] [address] MCHC (RBC) [Mass/Vol] 32.0 g/dL Normal 30.5-36.0 [facility] Comment on above: Order Comment: Speci men Type: BLOOD SPECIMENOrdering Facility: [facility] [place] Address: [address] [place] [address] Performed By: #### 5 8410-2 ####LOPEZ LABORATORYCLIA [id number] [address] MCV (RBC) [Entitic vol] 100.9 fL High 80.0-100.0 [facility] Comment on above: Order Comment: Speci men Type: BLOOD SPECIMENOrdering Facility: [facility] [place] Address: [address] [place] [address] Performed By: #### 5 8410-2 ####LOPEZ LABORATORYCLIA [id number] [address] Nucleated RBC (Bld) [#/Vol] 10*3/uL Normal <0.01 [facility] Comment on above: Order Comment: Speci men Type: BLOOD SPECIMENOrdering Facility: [facility] [place] Address: [address] [place] [address] Performed By: #### 5 8410-2 ####LOPEZ LABORATORYCLIA [id number] [address] Platelet mean volume (Bld) [Entitic vol] 10.1 fL Normal 9.0-12.7 [facility] Comment on above: Order Comment: Speci men Type: BLOOD SPECIMENOrdering Facility: [facility] [place] Address: [address] [place] [address] Performed By: #### 5 8410-2 ####LOPEZ LABORATORYCLIA [id number] [place] [address] [facility] [place] Platelets (Bld) [#/Vol] 206 10*3/uL Normal 150-400 [facility] Comment on above: Order Comment: Speci men Type: BLOOD SPECIMENOrdering Facility: [facility] [place] Address: [address] [place] [address] Performed By: #### 5 8410-2 ####LOPEZ LABORATORYCLIA [id number] [place] [address] [place] RBC (Bld) [#/Vol] 3.47 10*6/uL Low 3.90-5.20 [facility] Comment on above: Order Comment: Speci men Type: BLOOD SPECIMENOrdering Facility: [facility] [place] Address: [address] [place] [address] Performed By: #### 5 8410-2 ####SIPSEY LABORATORYCLIA [id number] [address] [place] WBC (Bld) [#/Vol] 7.45 10*3/uL Normal 3.70-11.00 [facility] Comment on above: Order Comment: Speci men Type: BLOOD SPECIMENOrdering Facility: [facility] [place] Address: [address] [place] [address] Performed By: #### 5 8410-2 ####SIPSEY LABORATORYCLIA [id number] [address] [id number] [facility] CONSULTon 11-10-2022 CONSULT HNO ID: [id number] Author: Dawn Frost DO Service: Cardiovascular Medicine Author Type: Physician Type: Consults Filed: 11/10/2022 11:07 AM Note Text: [facility] CARDI[facility]ULAR [facility]ICINE CONSULT NOTE Elena Galeano [id number] PRIMARY SERVICE: MICU CONSULTING SERVICE: Cardiovascular Medicine: DATE OF ADMISSION: 11/09/2022 DATE OF CONSULT: 11/10/2022 REASON FOR CONSULT Possible need for anticoagulation HISTORY OF PRESENT ILLNESS Elena Galeano is a 62 year old female with a history of COPD, recent PSG 10/28/22 c/w PERCY, hypertension, hyperlipidemia, CLL in remission, non-Hodgkin lymphoma s/p chemotherapy in remission, GERD, frequent PVCs mistaken for pAF in the past and no documentation of paroxysmal atrial fibrillation, recent ischemic lacunar infarct 10/30/22 of R frontal periventricular white matter along with L central retinal artery occlusion and vision loss placed on ASA, Plavix x 21 days per neuro), bilateral carotid stenosis (R 30%, L 60%), anxiety, osteoarthritis, gout, B12 deficiency, CKD II, obesity, ex smoker (quit 2012), depression, who presented to ED 11/09/22 with complaints of headache, blurred vision and dizziness and nausea. She was to get a monitor placed today in cardiology office but due to symptoms was sent to ED. She states her SBP usually runs around 120 at home however was elevated in ED and then transferred to ICU. She briefly received Cardene for significant hypertension of 241/108. CT brain negative for acute abnormality, EKG showing NSR, hstn 13 -> 14 -> 17. She received 1L NS, 10 mg Labetalol, 4 mg Morphine, 1 mg Ativan, 10 mg Amlodipine and initiated Nicardipine infusion She has seen cardiology for frequent PVCs for many years but despite holter monitors and hospital Tele has not had any documentation of atrial fibrillation -until now. This morning I reviewed all of her telemetry since admit and at 8:37 this am it appears she did have a brief run of atrial fibrillation with RVR 126 bpm. She states she has been in bed or chair all morning and had no symptoms. PAST MEDICAL HISTORY PAST MEDICAL HISTORY Diagnosis Date Anxiety Depression Hypertension Lymphoma (HCC) 10/2010 Right knee pain 06/12/2014 PAST SURGICAL HISTORY Procedure Laterality Date ANESTH OPEN/SURG ARTHRS TOTAL KNEE ARTHROPLASTY 05/19/2015 right TKA APPENDECTOMY ARTHROSCOPY KNEE SUBCHONDROPLAST 10/11/2014 right knee medial menisectomy AND femoral tibial subchondroplasty COLONOSCOPY FLX DX W/COLLJ SPEC WHEN PFRMD 05/31/13 Colonoscopy EGD 2013 PAST SURGICAL HISTORY OF left ovary and fallopian tube removed for a benign cyst, done in her 20's PAST SURGICAL HISTORY OF Pilonidal cyst removed PAST SURGICAL HISTORY OF 01/2013 port a cath, left , 2011 with revision in 2012 TONSILLECTOMY PRIMARY/SECONDARY Tonsillectomy FAMILY HISTORY FAMILY HISTORY Problem Relation Age of Onset None Mother None Father None Sister X 3 None Brother X 2 SOCIAL HISTORY Social History Tobacco Use Smoking status: Former Packs/day: 0.50 Years: 30.00 Pack years: 15.00 Types: Cigarettes Quit date: 01/22/2013 Years since quittin.8 Smokeless tobacco: Never Vaping Use Vaping Use: Never used Substance Use Topics Alcohol use: No Drug use: No HOME MEDICATIONS clopidogrel (PLAVIX) 75 mg tabletTake 1 tablet by mouth once daily for 21 doses.Disp: 21 tabletRfl: 0 lisinopril (ZESTRIL, PRINIVIL) 5 mg tabletTake 1 tablet by mouth once daily.Disp: 30 tabletRfl: 0 traZODone (DESYREL) 100 mg tabletTake 100 mg by mouth.Disp: Rfl: pantoprazole DR (PROTONIX) 40 mg tabletTake 40 mg by mouth.Disp: Rfl: buPROPion XL (WELLBUTRIN XL) 300 mg 24 hr tabletTake 300 mg by mouth.Disp: Rfl: escitalopram oxalate (LEXAPRO) 20 mg tabletTake 1 tablet by mouth once daily.Disp: Rfl: carvedilol (COREG) 12.5 mg tabletTake 12.5 mg by mouth.Disp: Rfl: Fenofibrate (LOFIBRA) 160 mg tabletTake 1 tablet by mouth once daily.Disp: Rfl: REPATHA SURECLICK 140 mg/mL pen injectorInject 1 mL under the skin every 14 days.Disp: Rfl: albuterol HFA (PROVENTIL HFA, VENTOLIN HFA) 90 mcg/actuation inhalerInhale 2 Puffs as instructed every 6 hours as needed.Disp: Rfl: aspirin, enteric coated (ASPIRIN, ENTERIC COATED) 81 mg EC tabletTake 81 mg by mouth.Disp: Rfl: fenofibrate nanocrystallized (TRICOR) 145 mg tabletTake 1 tablet by mouth once daily.Disp: 90 tabletRfl: 3 triamterene-hydrochlor othiazide 37.5-25 mg per tabletTake 1 tablet by mouth once daily.Disp: Rfl: INPATIENT MEDICATIONS Current Facility-Administered Medications Medication Dose Route Frequency lisinopril 5 mg tab(s) (ZESTRIL, PRINIVIL) 5 mg ORAL DAILY carvedilol 12.5 mg tab(s) (COREG) 12.5 mg ORAL BID w MEALS albuterol HFA 90 mcg/actuation 2 Puff (PROVENTIL HFA, VENTOLIN HFA) 2 Puff INHALATION q 6 H PRN fenofibrate 200 mg cap(s) (LOFIBRA) 200 mg ORAL DAILY buPROPion SR 150 mg tab(s) (more content not included)... Normal [facility] HISTORY PHYSICALon 3 HISTORY PHYSICAL HNO ID: [id number] Author: Miri Yee APRN.RESIDENTIAL CARE OFFICER Service: Critical Care Author Type: Nurse Practitioner Type: HANDP Filed: 11/10/2022 12:31 AM Note Text: SERVICE DATE: 11/09/2022 SERVICE TIME: 10:30 PM [facility] HISTORY AND PHYSICAL HPI: This is a 62 year old female with past medical history of anxiety, osteoarthritis, gout, B12 deficiency, CKD II, obesity, ex smoker (quit 2012), depression, COPD/PERCY (noncompliant with CPAP), hypertension, hyperlipidemia, CLL in remission, non-Hodgkin lymphoma s/p chemotherapy in remission, GERD, paroxysmal atrial fibrillation (no AC), recent ischemic lacunar infarct of R frontal periventricular white matter causing central artery occlusion of L retina with vision loss, bilateral carotid stenosis (R 30%, L 60% on ASA, Plavix) who presented to ED 11/09/22 with complaints of headache, blurred vision and dizziness since this morning. She also endorsed chest pain and nausea while in the ED. She endorses compliance with home antihypertensive regimen including Coreg, Lisinopril and Maxide, last took them this morning. She states her SBP usually runs around 120 at home. ED Workup: - Afebrile, HR 60-70, significant hypertension SBP 241/108, adequate oxygenation on room air - CT brain negative for acute abnormality - EKG showing NSR with sinus arrythmia, negative for acute ischemia - CXR negative for acute finding - Labworking significant for BMP/CBC unremarkable, sed rate WNL, HStrop 13 -> 14 -> 17, COVID negative, UA negative - Received 1L NS, 10 mg Labetalol, 4 mg Morphine, 1 mg Ativan, 10 mg Amlodipine and initiated on Nicardipine infusion She is being admitted to [place] ICU for further management of hypertensive urgency. Subjective PAST MEDICAL HISTORY Diagnosis Date Anxiety Depression Hypertension Lymphoma (HCC) 10/2010 Right knee pain 06/12/2014 PAST SURGICAL HISTORY Procedure Laterality Date ANESTH OPEN/SURG ARTHRS TOTAL KNEE ARTHROPLASTY 05/19/2015 right TKA APPENDECTOMY ARTHROSCOPY KNEE SUBCHONDROPLAST 10/11/2014 right knee medial menisectomy AND femoral tibial subchondroplasty COLONOSCOPY FLX DX W/COLLJ SPEC WHEN PFRMD 05/31/13 Colonoscopy EGD 2013 PAST SURGICAL HISTORY OF left ovary and fallopian tube removed for a benign cyst, done in her 20's PAST SURGICAL HISTORY OF Pilonidal cyst removed PAST SURGICAL HISTORY OF 01/2013 port a cath, left , 2011 with revision in 2012 TONSILLECTOMY PRIMARY/SECONDARY Tonsillectomy FAMILY HISTORY Problem Relation Age of Onset None Mother None Father None Sister X 3 None Brother X 2 Social History Occupational History Not on file Tobacco Use Smoking status: Former Packs/day: 0.50 Years: 30.00 Pack years: 15 Types: Cigarettes Quit date: 01/22/2013 Years since quittin.8 Smokeless tobacco: Never Vaping Use Vaping Use: Never used Substance and Sexual Activity Alcohol use: No Drug use: No Sexual activity: Not on file ALLERGIES Allergen Reactions Seasonal Allergies Other: See Comments sneezing and stuffy nose PRIOR TO ADMISSION MEDICATIONS clopidogrel (PLAVIX) 75 mg tablet, Take 1 tablet by mouth once daily for 21 doses., Disp: 21 tablet, Rfl: 0, 11/09/2022 lisinopril (ZESTRIL, PRINIVIL) 5 mg tablet, Take 1 tablet by mouth once daily., Disp: 30 tablet, Rfl: 0, 11/09/2022 traZODone (DESYREL) 100 mg tablet, Take 100 mg by mouth., Disp: , Rfl: , 11/09/[address] (PROTONIX) 40 mg tablet, Take 40 mg by mouth., Disp: , Rfl: , 11/09/2022 buPROPion XL (WELLBUTRIN XL) 300 mg 24 hr tablet, Take 300 mg by mouth., Disp: , Rfl: , 11/09/2022 escitalopram oxalate (LEXAPRO) 20 mg tablet, Take 1 tablet by mouth once daily., Disp: , Rfl: , 11/09/2022 carvedilol (COREG) 12.5 mg tablet, Take 12.5 mg by mouth., Disp: , Rfl: , 11/09/2022 Fenofibrate (LOFIBRA) 160 mg tablet, Take 1 tablet by mouth once daily., Disp: , Rfl: , 11/09/2022 REPATHA SURECLICK 140 mg/mL pen injector, Inject 1 mL under the skin every 14 days., Disp: , Rfl: , 11/09/2022 albuterol HFA (PROVENTIL HFA, VENTOLIN HFA) 90 mcg/actuation inhaler, Inhale 2 Puffs as instructed every 6 hours as needed., Disp: , Rfl: , 11/09/2022 aspirin, enteric coated (ASPIRIN, ENTERIC COATED) 81 mg EC tablet, Take 81 mg by mouth., Disp: , Rfl: , 11/09/2022 fenofibrate nanocrystallized (TRICOR) 145 mg tablet, Take 1 tablet by mouth once daily., Disp: 90 tablet, Rfl: 3, 11/09/2022 triamterene-hydrochlor othiazide 37.5-25 mg per tablet, Take 1 tablet by mouth once daily., Disp: , Rfl: , 11/09/2022 Review of Systems Constitutional: Negative. HENT: Negative. Eyes: Positive for visual disturbance. L eye vision loss, preexisting Respiratory: Positive for shortness of breath. Cardiovascular: Positive for chest pain. Negative for palpitations and leg swelling. Gastrointestinal: Negative. Endocrine: Negative. Genitourinary: Negative. Musculoskeletal: Negative. (more content not included)... Normal [facility] Magnesium [facility] 11-10 Magnesium [Mass/Vol] 1.4 mg/dL Low 1.7-2.3 [facility] Comment on above: Order Comment: Speci men Type: BLOOD SPECIMENOrdering Facility: [facility] [place] Address: [address] [id number] Performed By: #### 2 4321-2, 73101-7, 2777-1 ####SIP[facility] LABORATORYCLIA [id number] [place] [address] [place] Phosphate [facility] 11-10 Phosphate [Mass/Vol] 4.1 mg/dL Normal 2.7-4.8 [facility] Comment on above: Order Comment: Speci men Type: BLOOD SPECIMENOrdering Facility: [facility] [place] Address: [address] [place], [place] [phone] Performed By: #### 2 4321-2, 03997-4, 2777-1 ####LOPE[facility] LABORATORYCLIA [id number] [place] [address] [facility] [place] STAPH AUREUS PCRon 3 S. aureus and MRSA panel [place]+probe (Nose) Normal Negative [facility] Comment on above: Order Comment: Speci men Type: SWAB OF INTERNAL NOSEOrdering Facility: [facility] [place] Address: [address] [phone] Result Comment: Nega tive for Staphylococcus aureus by PCR. Negative for MRSA by PCR Performed By: #### S APCR ####[facility] LABCLIA [id number] [address] [id number] [place] ALLIED HEALTHon 11-09-2022 ALLIED HEALTH HNO ID: [id number] Author: RT Sarabjit(Herminio) Service: Radiology Author Type: Screwhead Polisher Type: [facility] Filed: 11/09/2022 5:10 PM Note Text: Radiology Service Progress Note PATIENT NAME: Elena Galeano DATE OF SERVICE: November 09, 2022 TIME: 5:10 PM PATIENT IDENTITY VERIFICATION COMPLETED USING TWO (2) IDENTIFIERS: Name and Date of confirmed by patient verbally. FALL SCREENING: Has the patient had 2 falls in the last year or 1 fall with injury or currently using an Ambulatory Assistive Device (Walker, Cane, Wheelchair, Crutches, etc.)? Emergency Room Patient: Screened in ED PATIENT GENDER DATA: Female. status: : No status: NO. PATIENT RELEVANT IMPLANT DATA REVIEWED: Not Applicable RADIOLOGY DEPARTMENT: General X-ray: Exam(s) Completed: Chest X-Ray PERIPHERAL IV DATA: Not applicable SIGNED BY: RT Sarabjit(Herminio) November 09, 2022 5:10 PM [facility] HEALTH HNO ID: [id number] Author: Zamzam Galindo, CT Service: Radiology Author Type: Technologist Type: Allied Health Filed: 11/09/2022 3:43 PM Note Text: Radiology Service Progress Note PATIENT NAME: Elena Galeano DATE OF SERVICE: November 09, 2022 TIME: 3:39 PM PATIENT IDENTITY VERIFICATION COMPLETED USING TWO (2) IDENTIFIERS: Name and Date of confirmed by patient verbally and Name and Date of confirmed by identification band. FALL SCREENING: Has the patient had 2 falls in the last year or 1 fall with injury or currently using an Ambulatory Assistive Device (Walker, Cane, Wheelchair, Crutches, etc.)? Emergency Room Patient: Screened in ED PATIENT GENDER DATA: Female. status: : No status: NO. PATIENT RELEVANT IMPLANT DATA REVIEWED: Yes RADIOLOGY DEPARTMENT: CT; Exam(s) Completed: Brain PERIPHERAL IV DATA: Not applicable SIGNED BY: Zamzam Galindo, MARIBETH November 09, 2022 3:39 PM Normal [facility] Basic metabolic 2000 panelon 11-09-2022 Anion gap [Moles/Vol] 10 mmol/L Normal 9-18 [facility] Comment on above: Order Comment: Brian ramey Type: BLOOD SPECIMENOrdering Facility: [facility] [place] Address: [address] [place] [address] Performed By: #### L [id number], 27630-5 ####[facility] LABORATORYCLIA [id number] [place] [address] [place] Calcium [Mass/Vol] 9.3 mg/dL Normal 8.5-10.2 [facility] Comment on above: Order Comment: Brian ramey Type: BLOOD SPECIMENOrdering Facility: [facility] [place] Address: [address] [place] [address] Performed By: #### L [id number], 45723-3 ####[facility] LABORATORYCLIA [id number] [place] [address] [place] Chloride [Moles/Vol] 105 mmol/L Normal 97-105 [facility] Comment on above: Order Comment: Brian ramey Type: BLOOD SPECIMENOrdering Facility: [facility] [place] Address: [address] [place] [address] Performed By: #### L [id number], 23107-6 ####[facility] LABORATORYCLIA [id number] [place] [address] [place] CO2 [Moles/Vol] 29 mmol/L Normal 22-30 [facility] Comment on above: Order Comment: Brian karoline Type: BLOOD SPECIMENOrdering Facility: [facility] [place] Address: [address] [address] Performed By: #### L EM0017, 79064-1 ####[facility] LABORATORYCLIA [id number] [address] Creatinine [Mass/Vol] 0.91 mg/dL Normal 0.58-0.96 [facility] Comment on above: Order Comment: Brian karoline Type: BLOOD SPECIMENOrdering Facility: [facility] [place] Address: [address] [address] Performed By: #### L [id number], 96329-3 ####[facility] LABORATORYCLIA [id number] [address] ESTIMATED GLOMERULAR FILTRATION RATE 71 mL/min/1.73m??? Normal >=60 [facility] Comment on above: Order Comment: Brian ramey Type: BLOOD SPECIMENOrdering Facility: [facility] [place] Address: [address] [place] [address] Result Comment: Nay mated Glomerular Filtration Rate (eGFR) is calculated using the 2020 CKD-EPI creatinine equation. This equation utilizes serum creatinine, sex, and age as parameters. The creatinine assay has traceable calibration to isotope dilution-mass spectrometry. Refer to KDIGO guidelines for clinical interpretation. In patients with unstable renal function, e.g. those with acute kidney injury, the eGFR may not accurately reflect actual GFR. Performed By: #### L [id number], 33734-3 ####[facility] LABORATORYCLIA [id number] [address] Glucose [Mass/Vol] 90 mg/dL Normal 74-99 [facility] Comment on above: Order Comment: Brian ramey Type: BLOOD SPECIMENOrdering Facility: [facility] [place] Address: [address] [place] [address] Result Comment: The [place] Diabetes [employer] (ADA) provides guidance for cutoff values for fasting glucose and random glucose. The ADA defines fasting as no caloric intake for at least 8 hours. Fasting plasma glucose results between 100 to 125 mg/dL indicate increased risk for diabetes (prediabetes). Fasting plasma glucose results greater than or equal to 126 mg/dL meet the criteria for diagnosis of diabetes. In the absence of unequivocal hyperglycemia, results should be confirmed by repeat testing. In a patient with classic symptoms of hyperglycemia or hyperglycemic crisis, random plasma glucose results greater than or equal to 200 mg/dL meet the criteria for diagnosis of diabetes. Reference: Standards of Medical Care in Diabetes 2016, [place] Diabetes Association. Diabetes Care. 2016.39(Suppl 1). Performed By: #### L NJ5104, 10439-3 ####[facility] LABORATORYCLIA [id number] [address] [place] [facility] Potassium [Moles/Vol] 4.5 mmol/L Normal 3.7-5.1 [facility] Comment on above: Order Comment: Marcusi karoline Type: BLOOD SPECIMENOrdering Facility: [facility] [place] Address: [address] [place] [address] Performed By: #### L [id number], 38499-0 ####[facility] LABORATORYCLIA [id number] [address] Sodium [Moles/Vol] 144 mmol/L Normal 136-144 [facility] Comment on above: Order Comment: Brian ramey Type: BLOOD SPECIMENOrdering Facility: [facility] [place] Address: [address] [place] [address] Performed By: #### L [id number], 53406-2 ####[facility] LABORATORYCLIA [id number] [address] [place] [facility] Urea nitrogen [Mass/Vol] 8 mg/dL Normal 7-21 [facility] Comment on above: Order Comment: Speci men Type: BLOOD SPECIMENOrdering Facility: [facility] [place] Address: [address] [place] [address] Performed By: #### L [id number], 52974-4 ####[facility] LABORATORYCLIA [id number] [address] [place] [facility] CBC W Auto Differential pane l (Bld)on 11-09-2022 Basophils (Bld) [#/Vol] 0.04 10*3/uL Normal <0.11 [facility] Comment on above: Order Comment: Speci men Type: BLOOD SPECIMENOrdering Facility: [facility] [place] Address: [address] [address] Performed By: #### 5 7021-8 ####[facility] LABORATORYCLIA [id number] [address] [place] [facility] Basophils/100 WBC (Bld) 0.9 % Normal [facility] Comment on above: Order Comment: Speci men Type: BLOOD SPECIMENOrdering Facility: [facility] [place] Address: [address] [place] [address] Performed By: #### 5 7021-8 ####[facility] LABORATORYCLIA [id number] [place] [address] [place] Differential cell count method Nom (Bld) Auto Normal [facility] Comment on above: Order Comment: Speci men Type: BLOOD SPECIMENOrdering Facility: [facility] [facility] [place] Address: [address] [place] [address] Performed By: #### 5 7021-8 ####LOPEZ LABORATORYCLIA [id number] [place] [address] [place] Eosinophils (Bld) [#/Vol] 0.04 10*3/uL Normal <0.46 [facility] Comment on above: Order Comment: Speci men Type: BLOOD SPECIMENOrdering Facility: [facility] [place] Address: [address] [place] [address] Performed By: #### 5 7021-8 ####LOPEZ LABORATORYCLIA [id number] [address] STATES [facility] Eosinophils/100 WBC (Bld) 0.9 % Normal [facility] Comment on above: Order Comment: Speci men Type: BLOOD SPECIMENOrdering Facility: [facility] [place] Address: [address] [place] [address] Performed By: #### 5 7021-8 ####LOPEZ LABORATORYCLIA [id number] [place] [address] [place] Erythrocyte distribution width (RBC) [Ratio] 13.0 % Normal 11.5-15.0 [facility] Comment on above: Order Comment: Speci men Type: BLOOD SPECIMENOrdering Facility: [facility] [place] Address: [address] [address] Performed By: #### 5 7021-8 ####LOPEZ LABORATORYCLIA [id number] [address] [place] Hematocrit (Bld) [Volume fraction] 36.9 % Normal 36.0-46.0 [facility] Comment on above: Order Comment: Speci men Type: BLOOD SPECIMENOrdering Facility: [facility] [place] Address: [address] [place] [address] Performed By: #### 5 7021-8 ####LOPEZ LABORATORYCLIA [id number] [address] [place] Hemoglobin (Bld) [Mass/Vol] 12.3 g/dL Normal 11.5-15.5 [facility] Comment on above: Order Comment: Speci men Type: BLOOD SPECIMENOrdering Facility: [facility] [place] Address: [address] [place] [address] Performed By: #### 5 7021-8 ####LOPEZ LABORATORYCLIA [id number] [address] [place] Immature granulocytes (Bld) [#/Vol] 10*3/uL Normal <0.10 [facility] Comment on above: Order Comment: Speci men Type: BLOOD SPECIMENOrdering Facility: [facility] [place] Address: [address] [place] [address] Performed By: #### 5 7021-8 ####LOPEZ LABORATORYCLIA [id number] [address] [place] Immature granulocytes/100 WBC (Bld) 0.2 % Normal [facility] Comment on above: Order Comment: Speci men Type: BLOOD SPECIMENOrdering Facility: [facility] [place] Address: [address] [place] [address] Performed By: #### 5 7021-8 ####LOPEZ LABORATORYCLIA [id number] [place] [address] [place] [facility] [place] Lymphocytes (Bld) [#/Vol] 2.24 10*3/uL Normal 1.00-4.00 [facility] Comment on above: Order Comment: Speci men Type: BLOOD SPECIMENOrdering Facility: [facility] [place] Address: [address] [place] [address] Performed By: #### 5 7021-8 ####LOPEZ LABORATORYCLIA [id number] [address] Lymphocytes/100 WBC (Bld) 48.4 % Normal [facility] Comment on above: Order Comment: Speci men Type: BLOOD SPECIMENOrdering Facility: [facility] [place] Address: [address] [place] [address] Performed By: #### 5 7021-8 ####LOPEZ LABORATORYCLIA [id number] [address] MCH (RBC) [Entitic mass] 33.3 pg Normal 26.0-34.0 [facility] Comment on above: Order Comment: Speci men Type: BLOOD SPECIMENOrdering Facility: [facility] [place] Address: [address] [place] [address] Performed By: #### 5 7021-8 ####LOPEZ LABORATORYCLIA [id number] [address] MCHC (RBC) [Mass/Vol] 33.3 g/dL Normal 30.5-36.0 [facility] Comment on above: Order Comment: Speci men Type: BLOOD SPECIMENOrdering Facility: [facility] [place] Address: [address] [place] [address] Performed By: #### 5 7021-8 ####LOPEZ LABORATORYCLIA [id number] [address] MCV (RBC) [Entitic vol] 100.0 fL Normal 80.0-100.0 [facility] Comment on above: Order Comment: Speci men Type: BLOOD SPECIMENOrdering Facility: [facility] [place] Address: [address] [place] [address] Performed By: #### 5 7021-8 ####LOPEZ LABORATORYCLIA [id number] [address] Monocytes (Bld) [#/Vol] 0.56 10*3/uL Normal <0.87 [facility] Comment on above: Order Comment: Speci men Type: BLOOD SPECIMENOrdering Facility: [facility] [place] Address: [address] [place] [address] Performed By: #### 5 7021-8 ####LOPEZ LABORATORYCLIA [id number] [address] [place] Monocytes/100 WBC (Bld) 12.1 % Normal [facility] Comment on above: Order Comment: Speci men Type: BLOOD SPECIMENOrdering Facility: [facility] [place] Address: [address] [place] [address] Performed By: #### 5 7021-8 ####LOPEZ LABORATORYCLIA [id number] [place] [address] [place] Neutrophils (Bld) [#/Vol] 1.74 10*3/uL Normal 1.45-7.50 [facility] Comment on above: Order Comment: Speci men Type: BLOOD SPECIMENOrdering Facility: [facility] [place] Address: [address] [place] [address] Performed By: #### 5 7021-8 ####LOPEZ LABORATORYCLIA [id number] [address] [place] Neutrophils/100 WBC (Bld) 37.5 % Normal [facility] Comment on above: Order Comment: Speci men Type: BLOOD SPECIMENOrdering Facility: [facility] [place] Address: [address] [place] [address] Performed By: #### 5 7021-8 ####LOPEZ LABORATORYCLIA [id number] [place] [address] [place] Nucleated RBC (Bld) [#/Vol] 10*3/uL Normal <0.01 [facility] Comment on above: Order Comment: Speci men Type: BLOOD SPECIMENOrdering Facility: [facility] [place] Address: [address] [place] [address] Performed By: #### 5 7021-8 ####LOPEZ LABORATORYCLIA [id number] [place] [address] [place] Nucleated RBC/100 WBC (Bld) [Ratio] 0.0 /100 WBC Normal [facility] Comment on above: Order Comment: Speci men Type: BLOOD SPECIMENOrdering Facility: [facility] [place] Address: [address] [place] [address] Performed By: #### 5 7021-8 ####LOPEZ LABORATORYCLIA [id number] [address] [place] Platelet mean volume (Bld) [Entitic vol] 10.1 fL Normal 9.0-12.7 [facility] Comment on above: Order Comment: Speci men Type: BLOOD SPECIMENOrdering Facility: [facility] [place] Address: [address] [address] Performed By: #### 5 7021-8 ####LOPEZ LABORATORYCLIA [id number] [address] [place] Platelets (Bld) [#/Vol] 236 10*3/uL Normal 150-400 [facility] Comment on above: Order Comment: Speci men Type: BLOOD SPECIMENOrdering Facility: [facility] [place] Address: [address] [address] Performed By: #### 5 7021-8 ####LOPEZ LABORATORYCLIA [id number] [place] [address] [place] RBC (Bld) [#/Vol] 3.69 10*6/uL Low 3.90-5.20 [facility] Comment on above: Order Comment: Speci men Type: BLOOD SPECIMENOrdering Facility: [facility] [place] Address: [address] Performed By: #### 5 7021-8 ####LOPEZ LABORATORYCLIA [id number] [address] [place] WBC (Bld) [#/Vol] 4.63 10*3/uL Normal 3.70-11.00 [facility] Comment on above: Order Comment: Speci men Type: BLOOD SPECIMENOrdering Facility: [facility] [place] Address: [address] [place] [address] Performed By: #### 5 7021-8 ####LOPEZ LABORATORYCLIA [id number] [address] CK TOTAL AND CK-MBon 023 CK [Catalytic activity/Vol] 149 U/L Normal 42-196 [facility] Comment on above: Order Comment: Marcusi karoline Type: BLOOD SPECIMENOrdering Facility: [facility] [place] Address: [address] [place] [address] Performed By: #### L [id number], 26053-5, CKCKMB, [place] ####LOPEZ LABORATORYCLIA [id number] [address] CK.MB [Mass/Vol] 2.6 ng/mL Normal <4.4 [facility] Comment on above: Order Comment: Marcusi men Type: BLOOD SPECIMENOrdering Facility: [facility] [place] Address: [address] [place] [address] Performed By: #### L [id number], 52492-0, CKCKMB, [place] ####LOPEZ LABORATORYCLIA [id number] [address] CK.MB [Ratio] 170 {ratio} Normal <=4.0 [facility] Comment on above: Order Comment: Speci karoline Type: BLOOD SPECIMENOrdering Facility: [facility] [place] Address: [address] [place] [address] Performed By: #### L [id number], 10502-6, CKCKMB, [place] ####LOPEZ LABORATORYCLIA [id number] [address] BRAIN WO IVCONon 11-09-[address] BRAIN WO IVCON * * *Final Report* * * DATE OF EXAM: Nov 09 2022 3:48PM [facility] [place] IV[place] / PROCEDURE REASON: Stroke, follow up * * * * Physician Interpretation * * * * EXAMINATION: CT BRAIN WO IVCON HISTORY: Clinical information: Stroke, follow up headache and blurred vision, dizziness, pt states she just had a stroked last week in her eye TECHNIQUE: Serial axial images without IV contrast were obtained from the vertex to the foramen magnum. MQ: CTBWO_3 CT Radiation dose: Integrated Dose-Length Product (DLP) for this visit = 718 mGy*cm CT Dose Reduction Employed: No dose reduction techniques were required COMPARISON: CT brain 10/30/2022 and MRI brain 11/01/2022 RESULT: Post-operative change: None. Acute change: No evidence of an acute infarct or other acute parenchymal process. Hemorrhage: No evidence of acute intracranial hemorrhage. ECASS hemorrhagic transformation score: Not Applicable Mass Lesion / Mass Effect: There is no evidence of an intracranial mass or extraaxial fluid collection. No significant mass effect. Chronic change: None apparent. Parenchyma: There is no significant volume loss. The brain parenchyma is otherwise within normal limits for age. Ventricles: The ventricles are within normal limits of size and configuration for age. Paranasal sinuses and skull base: The visualized paranasal sinuses are grossly clear. The skull base and imaged soft tissues are unremarkable. Technical Services Consultant (topogram) images: No additional findings. IMPRESSION: No intracranial hemorrhage or other acute intracranial abnormalities Business Controller: MALCOLM Transcribe Date/Time: Nov 09 2022 3:49P Dictated by : TAWNY RING DO This examination was interpreted and the report reviewed and electronically signed by: TAWNY RING DO on Nov 09 2022 3:56PM EST [id number] [facility] ED NOTEon 11-09-2022 ED NOTE HNO ID: [id number] Author: Melody Shelley RN Service: Nursing Author Type: Registered Nurse Type: ED Notes Filed: 11/09/2022 4:07 PM Note Text: Pt reports worsening pain to left upper chest into left shoulder and C/O nausea. Dr Macias aware of same. [facility] ED NOTE HNO ID: [id number] Author: Melody Shelley RN Service: Nursing Author Type: Registered Nurse Type: ED Notes Filed: 11/09/2022 3:56 PM Note Text: Pt has been to and from CT without change in condition. [facility] ED NOTE HNO ID: [id number] Author: Asia Cheng RN Service: ? Author Type: Registered Nurse Type: ED Notes Filed: 11/09/2022 2:30 PM Note Text: spoke with dr Cerrato about patient symptoms [facility] ED NOTE HNO ID: [id number] Author: Asia Cheng RN Service: ? Author Type: Registered Nurse Type: ED Notes Filed: 11/09/2022 2:31 PM Note Text: pt states she has a headache and blurred vision, dizziness, pt states she just had a stroked last week in her eye. pt was at card appt today and not feeling well and they sent her here. pt states has had symptoms since this morning, [facility] ED PROV NOTEon 11-09-2022 ED PROV NOTE HNO ID: [id number] Author: Dawn Macias DO Service: Emergency Medicine Author Type: Physician Type: ED Provider Notes Filed: 11/09/2022 10:38 PM Note Text: ED Provider Note Patient Name: Elena Galeano : 1960 SERVICE DATE: 11/09/22 History Patient presents with: Blurred Vision Headache Dizziness Potential Stroke Symptoms Elena Galeano is a 62-year-old female with past medical history of hypertension, anxiety, recent central retinal artery occlusion and subsequent small lacunar infarct who is presenting now to the emergency department with nonspecific symptoms of mild headache, feelings of lightheadedness and mild shortness of breath. Patient also endorses a mild chest pressure. She does endorse that this may be related to an anxiety reaction though given her recent stroke had concerns. Denies any other focal new deficits of numbness, tingling or weakness. She continues to have loss of vision of her left eye from her recent central retinal artery occlusion though this has been unchanged. Vision in her right eye seems to be at her baseline. Been taking Plavix and lisinopril since her admission. PAST MEDICAL HISTORY Diagnosis Date Anxiety Depression Hypertension Lymphoma (HCC) 10/2010 Right knee pain 06/12/2014 PAST SURGICAL HISTORY Procedure Laterality Date ANESTH OPEN/SURG ARTHRS TOTAL KNEE ARTHROPLASTY 05/19/2015 right TKA APPENDECTOMY ARTHROSCOPY KNEE SUBCHONDROPLAST 10/11/2014 right knee medial menisectomy AND femoral tibial subchondroplasty COLONOSCOPY FLX DX W/COLLJ SPEC WHEN PFRMD 05/31/13 Colonoscopy EGD 2013 PAST SURGICAL HISTORY OF left ovary and fallopian tube removed for a benign cyst, done in her 20's PAST SURGICAL HISTORY OF Pilonidal cyst removed PAST SURGICAL HISTORY OF 01/2013 port a cath, left , 2011 with revision in 2012 TONSILLECTOMY PRIMARY/SECONDARY Tonsillectomy FAMILY HISTORY Problem Relation Age of Onset None Mother None Father None Sister X 3 None Brother X 2 Social History Tobacco Use Smoking status: Former Packs/day: 0.50 Years: 30.00 Pack years: 15.00 Types: Cigarettes Quit date: 01/22/2013 Years since quittin.8 Smokeless tobacco: Never Vaping Use Vaping Use: Never used Substance and Sexual Activity Alcohol use: No Drug use: No Sexual activity: Not on file ALLERGIES Allergen Reactions Seasonal Allergies Other: See Comments sneezing and stuffy nose Review of Systems Constitutional: Negative for chills and fever. HENT: Negative for congestion, rhinorrhea and sore throat. Respiratory: Positive for shortness of breath. Negative for cough. Cardiovascular: Positive for chest pain. Negative for palpitations and leg swelling. Gastrointestinal: Negative for abdominal pain, diarrhea, nausea and vomiting. Genitourinary: Negative for dysuria and hematuria. Musculoskeletal: Negative for back pain. Skin: Negative for pallor, rash and wound. Neurological: Positive for light-headedness and headaches. Psychiatric/Behavioral : Negative for confusion. Physical Exam Vitals [11/09/22 1417] BP Pulse Temp Temp src Resp SpO2 Weight Height 198/80 74 36.6 ?C (97.8 ?F) Temporal 20 99 % 99.3 kg (219 lb) -- Physical Exam Vitals and nursing note reviewed. Constitutional: General: She is not in acute distress. Appearance: She is well-developed. HENT: Head: Normocephalic and atraumatic. Right Ear: External ear normal. Left Ear: External ear normal. Eyes: General: Visual field deficit (loss of vision in left eye) present. No scleral icterus. Right eye: No discharge. Left eye: No discharge. Conjunctiva/sclera: Conjunctivae normal. Pupils: Pupils are equal, round, and reactive to light. Cardiovascular: Rate and Rhythm: Normal rate and regular rhythm. Heart sounds: No murmur heard. No friction rub. No gallop. Pulmonary: Effort: Pulmonary effort is normal. No respiratory distress. Breath sounds: Normal breath sounds. No wheezing or rales. Chest: Chest wall: No tenderness. Abdominal: General: Bowel sounds are normal. There is no distension. Palpations: Abdomen is soft. There is no mass. Tenderness: There is no abdominal tenderness. There is no guarding or rebound. Musculoskeletal: General: No tenderness or deformity. Normal range of motion. Cervical back: Normal range of motion and neck supple. Lymphadenopathy: Cervical: No cervical adenopathy. Skin: General: Skin is warm and dry. Coloration: Skin is not pale. Findings: No erythema or rash. Neurological: Mental Status: She is alert and oriented to person, place, and time. Sensory: Sensation is intact. Motor: Motor function is intact. Coordination: Coordination is intact. Gait: Gait is intact. Diagnostic Testing ED Labs Ordered and Reviewed GLUCOSE, BLOOD (POC) - Abnormal; Notable for the following components: Result Value Ref Range Glucose, Point of Care (more content not included)... Normal [facility] EKGon 11-09-2022 Electrocardiogram Ventricular Rate : 7 8 BPM Atrial Rate : 78 BPM P-R Interval : 184 ms QRS Duration : 92 ms Q-T Interval : 398 ms QTC Calculation(Bazett) : 453 ms Calculated P [place] : 78 degrees Calculated R [place] : 55 degrees Calculated T [place] : 43 degrees NORMAL SINUS RHYTHM WITH SINUS ARRHYTHMIA NORMAL ECG 1445 Confirmed by DAWN MACIAS DO ([id number]), publication editor MAGDIEL GILBERT ([id number]) on 11/10/2022 6:49:42 AM NAME : ELENA AGLEANO PID : [id number] : 1960 Gender : Female Race : ORD : Procedure Date : Nov 09 2022 14:41:48 Edit Date : Nov 10 2022 06:49:45 Diagnosis: NORMAL SINUS RHYTHM WITH SINUS ARRHYTHMIA NORMAL ECG 1445 Confirmed by DAWN MACIAS DO ([id number]), publication editor MAGDIEL GILBERT ([id number]) on 11/10/2022 6:49:42 AM Test Reason : Location : 1 : ER ED Overread By : DAWN MACIAS DO Edited By : MAGDIEL GILBERT Referred By : , Acquired by : [id number], Normal [facility] ESR Westergren method (Bld) [Velocity]on 11-09-2022 ESR (Bld) [Velocity] 12 mm/h Normal 0-20 [facility] Comment on above: Order Comment: Speci men Type: BLOOD SPECIMENOrdering Facility: [facility] [place] Address: [address] [place] [id number] Performed By: #### 4 537-7 ####[facility] LABCLIA [id number] [facility] [id number] [place] HIGH SENSITIVITY TROPONIN T (INITIAL)on 11-09-2022 HIGH SENSITIVITY [place] 13 ng/L High <12 [facility] Comment on above: Order Comment: Brian ramey Type: BLOOD SPECIMENOrdering Facility: [facility] [place] Address: [address] [place] [address] Result Comment: When assessing risk for acute coronary syndromes: In patients undergoing blood draw greater than or equal to 2 hours from symptom onset, with history of very low to moderate risk and non-ischemic ECG, an initial hs-Troponin T less than 12 ng/L AND a 1 hour delta hs-Troponin T less than 3 ng/L should be considered very low risk for 30 day MACE. Performed By: #### L [id number], 89720-2 ####LOPEZ LABORATORYCLIA [id number] [address] [place] HIGH SENSITIVITY TROPONIN T (SECOND)on 11-09-2022 HIGH SENSITIVITY [place] 14 ng/L High <12 [facility] Comment on above: Order Comment: Brian ramey Type: BLOOD SPECIMENOrdering Facility: [facility] [place] Address: [address] [place] [address] Result Comment: When assessing risk for acute coronary syndromes: In patients undergoing blood draw greater than or equal to 2 hours from symptom onset, with history of very low to moderate risk and non-ischemic ECG, an initial hs-Troponin T less than 12 ng/L AND a 1 hour delta hs-Troponin T less than 3 ng/L should be considered very low risk for 30 day MACE. Performed By: #### L [id number] ####LOPEZ LABORATORYCLIA [id number] [address] [place] HIGH SENSITIVITY TROPONIN T (THIRD) 3 HRS AFTER INITIALon 11-09-2022 HIGH SENSITIVITY [place] 17 ng/L High <12 [facility] Comment on above: Order Comment: Brian ramey Type: BLOOD SPECIMENOrdering Facility: [facility] [place] Address: [address] [place] [address] Result Comment: When assessing risk for acute coronary syndromes: In patients undergoing blood draw greater than or equal to 2 hours from symptom onset, with history of very low to moderate risk and non-ischemic ECG, an initial hs-Troponin T less than 12 ng/L AND a 1 hour delta hs-Troponin T less than 3 ng/L should be considered very low risk for 30 day MACE. Performed By: #### L [id number], 22672-9, CKCKMB, [place] ####SIPSEY LABORATORYCLIA [id number] [address] [place] NT-proBNP [facility] Natriuretic peptide.B prohormone N-Terminal [Mass/Vol] 739 pg/mL High <125 [facility] Comment on above: Order Comment: Speci men Type: BLOOD SPECIMENOrdering Facility: [facility] [place] Address: [address] [place] [address] Performed By: #### L [id number], 58217-1, CKCKMB, [place] ####SIPSEY LABORATORYCLIA [id number] [address] SARS-CoV-2 RNA Resp Ql NEWTON+p robeon 11-09-2022 SARS-CoV-2 (COVID-19) RNA NEWTON+probe Ql (Resp) COVID 19 RESULT: SARS-CoV-2 (Agent of COVID-19) Not Detected by RT-PCR or equivalent method. This test has been authorized by FDA under an Emergency Use Authorization (EUA). Normal [facility] Comment on above: Performed By: #### 9 4500-6 ####SIPSEY LABORATORYCLIA [id number] [address] [place] TROPONIN Ton 11-09-2022 Troponin T.cardiac [Mass/Vol] ug/L Normal 0.000-0.029 [facility] Comment on above: Order Comment: Speci men Type: BLOOD SPECIMENOrdering Facility: [facility] [place] Address: [address] [place] [address] Performed By: #### L [id number], 64537-4, CKCKMB, [place] ####SIPSEY LABORATORYCLIA [id number] [address] Urinalysis complete panel (U )on 11-09-2022 Bacteria LM.HPF (Urine sed) [#/Area] Rare Abnormal None Seen [facility] Comment on above: Order Comment: Speci men Type: URINE SPECIMENOrdering Facility: [facility] [place] Address: [address] [place] [address] Performed By: #### 2 4356-8 ####LOPEZ LABORATORYCLIA [id number] [place] [address] [place] Bilirubin Ql (U) Negative Normal Negative [facility] Comment on above: Order Comment: Speci men Type: URINE SPECIMENOrdering Facility: [facility] [place] Address: [address] [place] [address] Performed By: #### 2 4356-8 ####LOPEZ LABORATORYCLIA [id number] [address] Clarity (Unsp spec) Clear Normal Clear [facility] Comment on above: Order Comment: Speci men Type: URINE SPECIMENOrdering Facility: [facility] [place] Address: [address] [place] [address] Performed By: #### 2 4356-8 ####LOPEZ LABORATORYCLIA [id number] [address] Color (U) Yellow Normal Yellow [facility] Comment on above: Order Comment: Speci men Type: URINE SPECIMENOrdering Facility: [facility] [facility] [place] Address: [address] [place] [address] Performed By: #### 2 4356-8 ####LOPEZ LABORATORYCLIA [id number] [address] Epithelial cells LM.HPF (Urine sed) [#/Area] Few Normal [facility] Comment on above: Order Comment: Speci men Type: URINE SPECIMENOrdering Facility: [facility] [place] Address: [address] [place] [address] Performed By: #### 2 4356-8 ####LOPEZ LABORATORYCLIA [id number] [address] Glucose Test strip (U) [Mass/Vol] Negative Normal Negative [facility] Comment on above: Order Comment: Speci men Type: URINE SPECIMENOrdering Facility: [facility] [place] Address: [address] [place] [address] Performed By: #### 2 4356-8 ####LOPEZ LABORATORYCLIA [id number] [place] [address] [place] Hemoglobin Ql (U) Negative Normal Negative, Trace [facility] Comment on above: Order Comment: Speci men Type: URINE SPECIMENOrdering Facility: [facility] [place] Address: [address] [place] [address] Performed By: #### 2 4356-8 ####LOPEZ LABORATORYCLIA [id number] [place] [address] [place] Ketones Ql (U) Negative Normal Negative [facility] Comment on above: Order Comment: Speci men Type: URINE SPECIMENOrdering Facility: [facility] [place] Address: [address] [place] [address] Performed By: #### 2 4356-8 ####LOPEZ LABORATORYCLIA [id number] [place] [address] [place] Leukocyte esterase Test strip Ql (U) Negative Normal Negative [facility] Comment on above: Order Comment: Speci men Type: URINE SPECIMENOrdering Facility: [facility] [place] Address: [address] [place] [address] Performed By: #### 2 4356-8 ####LOPEZ LABORATORYCLIA [id number] [address] [place] Nitrite Ql (U) Negative Normal Negative [facility] Comment on above: Order Comment: Speci men Type: URINE SPECIMENOrdering Facility: [facility] [place] Address: [address] [place] [address] Performed By: #### 2 4356-8 ####LOPEZ LABORATORYCLIA [id number] [address] [place] pH (U) 6.0 [pH] Normal 5.0-8.0 [facility] Comment on above: Order Comment: Speci men Type: URINE SPECIMENOrdering Facility: [facility] [place] Address: [address] [place] [address] Performed By: #### 2 4356-8 ####LOPEZ LABORATORYCLIA [id number] [address] Protein (U) [Mass/Vol] Negative Normal Negative [facility] Comment on above: Order Comment: Speci men Type: URINE SPECIMENOrdering Facility: [facility] [place] Address: [address] [place] [address] Performed By: #### 2 4356-8 ####LOPEZ LABORATORYCLIA [id number] [address] STATES [facility] RBC LM.HPF (Urine sed) [#/Area] 0-3 /HPF Normal 0-3 /HPF [facility] Comment on above: Order Comment: Speci men Type: URINE SPECIMENOrdering Facility: [facility] [place] Address: [address] [place] [address] Performed By: #### 2 4356-8 ####LOPEZ LABORATORYCLIA [id number] [address] Specific gravity (U) [Rel density] 1.010 Normal 1.005-1.030 [facility] Comment on above: Order Comment: Speci men Type: URINE SPECIMENOrdering Facility: [facility] [place] Address: [address] [place] [address] Performed By: #### 2 4356-8 ####LOPEZ LABORATORYCLIA [id number] [address] Urobilinogen Ql (U) 0.2 EU/dL Normal 0.2-1.0 EU/dL [facility] Comment on above: Order Comment: Speci men Type: URINE SPECIMENOrdering Facility: [facility] [place] Address: [address] [place] [address] Performed By: #### 2 4356-8 ####LOPEZ LABORATORYCLIA [id number] [address] WBC LM.HPF (Urine sed) [#/Area] 0-5 /HPF Normal 0-5 /HPF [facility] Comment on above: Order Comment: Speci men Type: URINE SPECIMENOrdering Facility: [facility] [place] Address: [place] [address] Performed By: #### 2 4356-8 ####SIPSEY LABORATORYCLIA [id number] [place] [address] [facility] [place] XR CHEST 1V FRONTAL PORTon 0 11-09-2022 XR CHEST 1V FRONTAL PORT * * *Final Report* * * DATE OF EXAM: Nov 09 2022 5:08PM MDX [id number] - XR CHEST 1V FRONTAL PORT / PROCEDURE REASON: Chest pain, nonspecific * * * * Physician Interpretation * * * * EXAMINATION: CHEST RADIOGRAPH (PORTABLE SINGLE VIEW AP) Exam Date/Time: 11/09/2022 5:08 PM CLINICAL HISTORY: Chest pain, nonspecific MQ: XCPR_5 Comparison: 10/31/2022 RESULT: Lines, tubes, and devices: None. Lungs and pleura: No acute pulmonary or pleural abnormalities Cardiomediastinal silhouette: Stable cardiomediastinal silhouette. Other: . IMPRESSION: No acute finding on portable chest Business Controller: MALCOLM Transcribe Date/Time: Nov 09 2022 5:16P Dictated by : KESHAWN CHAVEZ MD This examination was interpreted and the report reviewed and electronically signed by: KESHAWN CHAVEZ MD on Nov 09 2022 5:18PM EST [id number] [facility] CNCOon 11-03-2022 CNCO Letter Text [facility] CASE MANAGEMon 11-02-2022 CASE MANAGEM HNO ID: [id number] Author: Yaneth Molina RN Service: ? Author Type: Registered Nurse Type: Care Mgt Progress Note Filed: 11/02/2022 1:19 PM Note Text: CARE MANAGEMENT DISCHARGE NOTE SERVICE DATE: 11/02/2022 SERVICE TIME: 1:18 PM Discharge Time Out Yes Bedside RN present No Does pt have transport home? Yes Did pt use bedside pharmacy? No LOS: 0 days Admission Date: 10/30/2022 DISCHARGE ARRANGEMENT (list agency and phone number) Discharge Arrangement: Home with Self Care Appointments for the Next 45 Days Wednesday November 09, 2022 2:00 PM Office Vst with Shi Morel APRN.[facility] Cardiology ([facility]) [address] [address] CAREGIVER ASSESSMENT: Caregiver is ready, willing and able to meet the patient's needs as recommended by the inter-professional team:: No Caregiver needed HANDOFF COMMUNICATION: Handoff to: Primary Care Physician Primary Care Physician Name/Phone: Dr Paredes [phone] TRANSPORTATION ARRANGEMENTS: Transportation Arrangements: Car ADDITIONAL CONTACT RESOURCES: n/a Discharge order written for pt to d/c home no needs. Pt in agreement, denies needs. Spouse to transport. SIGNATURE: Yaneth Molina RN PATIENT NAME: Elena Galeano DATE: November 02, 2022 TIME: 1:17 PM PAGER/CONTACT #: [phone] Normal [facility] CBC W Auto Differential pane l (Bld)on 11-02-2022 Basophils (Bld) [#/Vol] 0.03 10*3/uL Normal <0.11 [facility] Comment on above: Order Comment: Speci men Type: BLOOD SPECIMENOrdering Facility: [facility] [place] Address: [address] [place] [address] Performed By: #### 5 7021-8 ####SIPSEY LABORATORYCLIA [id number] [place] [address] [place] [facility] Basophils/100 WBC (Bld) 0.6 % Normal [facility] Comment on above: Order Comment: Speci men Type: BLOOD SPECIMENOrdering Facility: [facility] [place] Address: [address] [place] [address] Performed By: #### 5 7021-8 ####LOPEZ LABORATORYCLIA [id number] [place] [address] [place] Differential cell count method Nom (Bld) Auto Normal [facility] Comment on above: Order Comment: Speci men Type: BLOOD SPECIMENOrdering Facility: [facility] [place] Address: [address] [place] [address] Performed By: #### 5 7021-8 ####LOPEZ LABORATORYCLIA [id number] [place] [address] [place] Eosinophils (Bld) [#/Vol] 0.04 10*3/uL Normal <0.46 [facility] Comment on above: Order Comment: Speci men Type: BLOOD SPECIMENOrdering Facility: [facility] [place] Address: [address] [place] [address] Performed By: #### 5 7021-8 ####LOPEZ LABORATORYCLIA [id number] [address] [place] Eosinophils/100 WBC (Bld) 0.9 % Normal [facility] Comment on above: Order Comment: Speci men Type: BLOOD SPECIMENOrdering Facility: [facility] [place] Address: [address] [place] [address] Performed By: #### 5 7021-8 ####LOPEZ LABORATORYCLIA [id number] [address] Erythrocyte distribution width (RBC) [Ratio] 12.8 % Normal 11.5-15.0 [facility] Comment on above: Order Comment: Speci men Type: BLOOD SPECIMENOrdering Facility: [facility] [place] Address: [address] [place] [address] Performed By: #### 5 7021-8 ####LOPEZ LABORATORYCLIA [id number] [address] [place] Hematocrit (Bld) [Volume fraction] 37.4 % Normal 36.0-46.0 [facility] Comment on above: Order Comment: Speci men Type: BLOOD SPECIMENOrdering Facility: [facility] [place] Address: [address] [place] [address] Performed By: #### 5 7021-8 ####LOPEZ LABORATORYCLIA [id number] [address] [place] Hemoglobin (Bld) [Mass/Vol] 12.6 g/dL Normal 11.5-15.5 [facility] Comment on above: Order Comment: Speci men Type: BLOOD SPECIMENOrdering Facility: [facility] [place] Address: [address] [place] [address] Performed By: #### 5 7021-8 ####LOPEZ LABORATORYCLIA [id number] [address] [place] Immature granulocytes (Bld) [#/Vol] 10*3/uL Normal <0.10 [facility] Comment on above: Order Comment: Speci men Type: BLOOD SPECIMENOrdering Facility: [facility] [place] Address: [address] [place] [address] Performed By: #### 5 7021-8 ####LOPEZ LABORATORYCLIA [id number] [address] Immature granulocytes/100 WBC (Bld) 0.2 % Normal [facility] Comment on above: Order Comment: Speci men Type: BLOOD SPECIMENOrdering Facility: [facility] [place] Address: [address] [place] [address] Performed By: #### 5 7021-8 ####LOPEZ LABORATORYCLIA [id number] [address] Lymphocytes (Bld) [#/Vol] 2.18 10*3/uL Normal 1.00-4.00 [facility] Comment on above: Order Comment: Speci men Type: BLOOD SPECIMENOrdering Facility: [facility] [place] Address: [address] [place] [address] Performed By: #### 5 7021-8 ####LOPEZ LABORATORYCLIA [id number] [address] Lymphocytes/100 WBC (Bld) 46.5 % Normal [facility] Comment on above: Order Comment: Speci men Type: BLOOD SPECIMENOrdering Facility: [facility] [place] Address: [address] [place] [address] Performed By: #### 5 7021-8 ####LOPEZ LABORATORYCLIA [id number] [address] MCH (RBC) [Entitic mass] 33.5 pg Normal 26.0-34.0 [facility] Comment on above: Order Comment: Speci men Type: BLOOD SPECIMENOrdering Facility: [facility] [place] Address: [address] [place] [address] Performed By: #### 5 7021-8 ####LOPEZ LABORATORYCLIA [id number] [address] MCHC (RBC) [Mass/Vol] 33.7 g/dL Normal 30.5-36.0 [facility] Comment on above: Order Comment: Speci men Type: BLOOD SPECIMENOrdering Facility: [facility] [place] Address: [address] [place] [address] Performed By: #### 5 7021-8 ####LOPEZ LABORATORYCLIA [id number] [place] [address] [place] MCV (RBC) [Entitic vol] 99.5 fL Normal 80.0-100.0 [facility] Comment on above: Order Comment: Speci men Type: BLOOD SPECIMENOrdering Facility: [facility] [place] Address: [address] [place] [address] Performed By: #### 5 7021-8 ####LOPEZ LABORATORYCLIA [id number] [address] [place] Monocytes (Bld) [#/Vol] 0.49 10*3/uL Normal <0.87 [facility] Comment on above: Order Comment: Speci men Type: BLOOD SPECIMENOrdering Facility: [facility] [place] Address: [address] [place] [address] Performed By: #### 5 7021-8 ####LOPEZ LABORATORYCLIA [id number] [address] Monocytes/100 WBC (Bld) 10.4 % Normal [facility] Comment on above: Order Comment: Speci men Type: BLOOD SPECIMENOrdering Facility: [facility] [place] Address: [address] [place] [address] Performed By: #### 5 7021-8 ####LOPEZ LABORATORYCLIA [id number] [place] [address] [place] Neutrophils (Bld) [#/Vol] 1.94 10*3/uL Normal 1.45-7.50 [facility] Comment on above: Order Comment: Speci men Type: BLOOD SPECIMENOrdering Facility: [facility] [place] Address: [address] [place] [address] Performed By: #### 5 7021-8 ####LOPEZ LABORATORYCLIA [id number] [address] [place] Neutrophils/100 WBC (Bld) 41.4 % Normal [facility] Comment on above: Order Comment: Speci men Type: BLOOD SPECIMENOrdering Facility: [facility] [place] Address: [address] [address] Performed By: #### 5 7021-8 ####LOPEZ LABORATORYCLIA [id number] [place] [address] [place] Nucleated RBC (Bld) [#/Vol] 10*3/uL Normal <0.01 [facility] Comment on above: Order Comment: Speci men Type: BLOOD SPECIMENOrdering Facility: [facility] [place] Address: [address] [address] Performed By: #### 5 7021-8 ####LOPEZ LABORATORYCLIA [id number] [address] [place] Nucleated RBC/100 WBC (Bld) [Ratio] 0.0 /100 WBC Normal [facility] Comment on above: Order Comment: Speci men Type: BLOOD SPECIMENOrdering Facility: [facility] [place] Address: [address] Performed By: #### 5 7021-8 ####LOPEZ LABORATORYCLIA [id number] [place] [address] [place] Platelet mean volume (Bld) [Entitic vol] 10.4 fL Normal 9.0-12.7 [facility] Comment on above: Order Comment: Speci men Type: BLOOD SPECIMENOrdering Facility: [facility] [place] Address: [address] Performed By: #### 5 7021-8 ####LOPEZ LABORATORYCLIA [id number] [place] [address] [place] Platelets (Bld) [#/Vol] 199 10*3/uL Normal 150-400 [facility] Comment on above: Order Comment: Speci men Type: BLOOD SPECIMENOrdering Facility: [facility] [place] Address: [address] [address] Performed By: #### 5 7021-8 ####LOPEZ LABORATORYCLIA [id number] [place] [address] [facility] [place] RBC (Bld) [#/Vol] 3.76 10*6/uL Low 3.90-5.20 [facility] Comment on above: Order Comment: Specprema ramey Type: BLOOD SPECIMENOrdering Facility: [facility] [place] Address: [address] [place] [address] Performed By: #### 5 7021-8 ####LOPEZ LABORATORYCLIA [id number] [place] [address] [facility] WBC (Bld) [#/Vol] 4.69 10*3/uL Normal 3.70-11.00 [facility] Comment on above: Order Comment: Speci men Type: BLOOD SPECIMENOrdering Facility: [facility] [place] Address: [address] [place] [address] Performed By: #### 5 7021-8 ####LOPEZ LABORATORYCLIA [id number] [address] [place] [id number] [facility] CNDSon 11-02-2022 CNDS HNO ID: [id number] Author: Martell Crespo MD Service: Hospital Medicine Author Type: Physician Type: Discharge Summary Filed: 11/02/2022 1:00 PM Note Text: DISCHARGE SUMMARY PATIENT NAME: Elena Galeano Code Status: Full Code Highest Readmission Risk Score: 12 The 30 day readmissions risk score is derived from an internally validated risk model which evaluates patient level characteristics, utilization history, medication orders and lab results up until the day of discharge. Patients with a score of 40 or above are considered highest risk for readmission. Specific patient level drivers will be listed at the bottom of the summary. Admission Information Admission Information ADMIT DATE: 10/30/2022 DISCHARGE DATE: 11/02/22 MY DOCTORS AND MEDICAL TEAM: My Main Hospital Doctor: Martell Crespo MD Primary Care Provider: Fernie Paredes DO My Medical Team Members: Treatment Team: Attending Provider: Martell Crespo MD Consulting: Deondre Lorenz MD MY CONDITION AT DISCHARGE: Stable REASON I WAS IN THE HOSPITAL: vision loss in the left eye. SUMMARY OF WHAT HAPPENED WHILE I WAS IN THE HOSPITAL: You presented to the hospital with a complaint of vision loss in her left eye. You were seen by neurology cardiology. You had MRI of the brain done which showed that it was a stroke. He also had an echocardiogram done which was unremarkable. You are being discharged home on Plavix 75 mg to be taken for 3 weeks along with your baby aspirin to prevent future strokes from happening. You should also continue to use your fenofibrate and Repatha to reduce your stroke risk. For blood pressure control lisinopril 5 mg was added to triamterene and Coreg for BP control. You should follow up with cardiology as outpatient for holter monitor. You are also being referred to the stroke clinic. OTHER PROBLEMS/DIAGNOSIS: Principal Problem: Ischemic stroke (HCC) Active Problems: Central artery occlusion of retina, left Dyslipidemia Essential hypertension PERCY (obstructive sleep apnea) Depressive disorder Obesity, Class II, BMI 35-39.9 Resolved Problems: Paroxysmal atrial fibrillation (HCC) OPERATIONS PERFORMED WHILE IN THE HOSPITAL: None IMPORTANT TEST/PROCEDURES: No procedures performed TEST RESULTS NOT AVAILABLE AT THIS TIME: No pending results Discharge Disposition Discharge Disposition: Home With Self Care Follow Up Appointments Follow-Up Appointment When: In 1 week Fernie Paredes, [facility] [address] [place] [address] PCP Requested Referral Additional Provider to Provider Information: Elena Galeano is a 62 year old female presented with past medical history of CLL in remission, non-Hodgkin lymphoma status post chemotherapy in remission, paroxysmal A. fib not on anticoagulation, GERD, hypertension, dyslipidemia, PERCY noncompliant to CPAP, depression who presented to the ER on 10/30/2022 for evaluation of left eye vision loss. CT head was unremarkable. CT angiogram of the head and neck showed R ICA stenosis 30%, LICA stenosis 60%, moderate right-sided and mild left-sided vertebral arterial stenosis, moderate left distal and mild right distal ICA stenosis, proximal left P2 moderate stenosis. MRI brain showed Findings suggesting small subacute nonhemorrhagic lacunar infarct right frontal periventricular white matter. Cardiology and neurology were consulted. Patient reported some history of PVCs but there was no atrial fibrillation noted on telemetry during the hospital stay, cardiology recommended outpatient follow-up with Holter monitor. Neurology recommended continuing baby aspirin for lifelong and starting Plavix for 21 days. Patient intolerant to statins and takes Repatha weekly along with fenofibrate for cholesterol control, she has tried multiple statins in the past and was not able to tolerate them. She is being referred to the outpatient stroke clinic. She will follow-up with cardiology as outpatient. She was found to be running high blood pressure, 5 mg of lisinopril was added to her regimen of Coreg 12.5 mg twice daily and triamterene hydrochlorothiazide. Treatment Team: Attending Provider: Martell Crespo MD Consulting: Deondre Lorenz MD Transitions of Care Critical Issues: SPECIALIST FOLLOW-UP: neurology and cardiology [facility] MEDICATION CHANGES: start lisinopril 5 mg, plavix 75 mg for 21 days. LABS AND PROCEDURES PENDING AT DISCHARGE: No pending results. FOLLOW-UP APPOINTMENTS ALREADY SCHEDULED WITH [facility] PROVIDER: Future Appointments Date Time Provider Department Center 11/09/2022 2:00 PM Shi Morel APRN.RESIDENTIAL CARE OFFICER [facility] ALLERGIES Allergen Reactions Seasonal Allergies Other: See Comments sneezing and stuffy nose DISCHARGE MEDICATION: Current Discharge Medication List START taking these (more content not included)... [facility] CONSULT PROGon 11-02-2022 CONSULT PROG HNO ID: [id number] Author: Naty Villareal MD Service: Neurology General Author Type: Physician Type: Consult Progress Note Filed: 11/02/2022 11:27 AM Note Text: Plan of Care: Paged by Dr. Crespo to give update on patient. Patient does not have atrial fibrillation, she has history of PVCs. Cardiology has seen her, did not see indication for anticoagulation at this point in time. She will continue with aspirin. MRI did show a lacunar stroke in the right frontal periventricular white matter. Will also recommend to put Plavix x21 days. She will be following up with cardiology, will be going home with equipment monitor phototypesetting. Also recommend to follow-up with the stroke clinic. Naty Villareal MD Neurology Electronically signed November 02, 2022 11:27 AM [facility] Comprehensive metabolic 2000 panelon 11-02-2022 Albumin [Mass/Vol] 3.7 g/dL Low 3.9-4.9 [facility] Comment on above: Order Comment: Speci men Type: BLOOD SPECIMENOrdering Facility: [facility] [place] Address: [address] [place] [address] [place] [address] Performed By: #### 2 4323-8 ####LOPEZ LABORATORYCLIA [id number] [address] ALP [Catalytic activity/Vol] 47 U/L Normal 34-123 [facility] Comment on above: Order Comment: Speci men Type: BLOOD SPECIMENOrdering Facility: [facility] [place] Address: [address] [address] Performed By: #### 2 4323-8 ####LOPEZ LABORATORYCLIA [id number] [address] [place] ALT [Catalytic activity/Vol] 24 U/L Normal 7-38 [facility] Comment on above: Order Comment: Speci men Type: BLOOD SPECIMENOrdering Facility: [facility] [place] Address: [address] [place] [address] Performed By: #### 2 4323-8 ####LOPEZ LABORATORYCLIA [id number] [address] [place] Anion gap [Moles/Vol] 11 mmol/L Normal 9-18 [facility] Comment on above: Order Comment: Speci men Type: BLOOD SPECIMENOrdering Facility: [facility] [place] Address: [address] [place] [address] Performed By: #### 2 4323-8 ####LOPEZ LABORATORYCLIA [id number] [address] AST [Catalytic activity/Vol] 30 U/L Normal 13-35 [facility] Comment on above: Order Comment: Speci men Type: BLOOD SPECIMENOrdering Facility: [facility] [place] Address: [address] [address] Performed By: #### 2 4323-8 ####LOPEZ LABORATORYCLIA [id number] [address] [place] Bilirubin [Mass/Vol] 0.5 mg/dL Normal 0.2-1.3 [facility] Comment on above: Order Comment: Speci men Type: BLOOD SPECIMENOrdering Facility: [facility] [place] Address: [address] [place] [address] Performed By: #### 2 4323-8 ####[facility] LABORATORYCLIA [id number] [place] [address] [place] Calcium [Mass/Vol] 9.8 mg/dL Normal 8.5-10.2 [facility] Comment on above: Order Comment: Speci men Type: BLOOD SPECIMENOrdering Facility: [facility] [place] Address: [address] [place] [address] Performed By: #### 2 4323-8 ####[facility] LABORATORYCLIA [id number] [place] [address] [place] Chloride [Moles/Vol] 105 mmol/L Normal 97-105 [facility] Comment on above: Order Comment: Speci men Type: BLOOD SPECIMENOrdering Facility: [facility] [place] Address: [address] [place] [address] Performed By: #### 2 4323-8 ####[facility] LABORATORYCLIA [id number] [place] [address] [place] CO2 [Moles/Vol] 28 mmol/L Normal 22-30 [facility] Comment on above: Order Comment: Speci men Type: BLOOD SPECIMENOrdering Facility: [facility] [place] Address: [address] [place] [address] Performed By: #### 2 4323-8 ####[facility] LABORATORYCLIA [id number] [place] [address] [place] Creatinine [Mass/Vol] 0.77 mg/dL Normal 0.58-0.96 [facility] Comment on above: Order Comment: Speci men Type: BLOOD SPECIMENOrdering Facility: [facility] [place] Address: [address] [place] [address] Performed By: #### 2 4323-8 ####[facility] LABORATORYCLIA [id number] [address] [place] ESTIMATED GLOMERULAR FILTRATION RATE 86 mL/min/1.73m??? Normal >=60 [facility] Comment on above: Order Comment: Speci men Type: BLOOD SPECIMENOrdering Facility: [facility] [place] Address: [address] [place] [address] Result Comment: Nay mated Glomerular Filtration Rate (eGFR) is calculated using the 2020 CKD-EPI creatinine equation. This equation utilizes serum creatinine, sex, and age as parameters. The creatinine assay has traceable calibration to isotope dilution-mass spectrometry. Refer to KDIGO guidelines for clinical interpretation. In patients with unstable renal function, e.g. those with acute kidney injury, the eGFR may not accurately reflect actual GFR. Performed By: #### 2 4323-8 ####[facility] LABORATORYCLIA [id number] [place] [address] [place] Glucose [Mass/Vol] 102 mg/dL High 74-99 [facility] Comment on above: Order Comment: Speci men Type: BLOOD SPECIMENOrdering Facility: [facility] [place] Address: [place] [address] Result Comment: The [place] Diabetes [employer] (ADA) provides guidance for cutoff values for fasting glucose and random glucose. The ADA defines fasting as no caloric intake for at least 8 hours. Fasting plasma glucose results between 100 to 125 mg/dL indicate increased risk for diabetes (prediabetes). Fasting plasma glucose results greater than or equal to 126 mg/dL meet the criteria for diagnosis of diabetes. In the absence of unequivocal hyperglycemia, results should be confirmed by repeat testing. In a patient with classic symptoms of hyperglycemia or hyperglycemic crisis, random plasma glucose results greater than or equal to 200 mg/dL meet the criteria for diagnosis of diabetes. Reference: Standards of Medical Care in Diabetes 2016, [place] [employer] Association. Diabetes Care. 2016.39(Suppl 1). Performed By: #### 2 4323-8 ####[facility] LABORATORYCLIA [id number] [place] [address] [place] Potassium [Moles/Vol] 3.7 mmol/L Normal 3.7-5.1 [facility] Comment on above: Order Comment: Speci karoline Type: BLOOD SPECIMENOrdering Facility: [facility] [place] Address: [place] [address] Performed By: #### 2 4323-8 ####[facility] LABORATORYCLIA [id number] [place] [address] [place] Protein [Mass/Vol] 6.4 g/dL Normal 6.3-8.0 [facility] Comment on above: Order Comment: Speci men Type: BLOOD SPECIMENOrdering Facility: [facility] [place] Address: [address] [place] [address] Performed By: #### 2 4323-8 ####[facility] LABORATORYCLIA [id number] [address] Sodium [Moles/Vol] 144 mmol/L Normal 136-144 [facility] Comment on above: Order Comment: Speci men Type: BLOOD SPECIMENOrdering Facility: [facility] [place] Address: [address] [place] [address] Performed By: #### 2 4323-8 ####[facility] LABORATORYCLIA [id number] [address] Urea nitrogen [Mass/Vol] 9 mg/dL Normal 7-21 [facility] Comment on above: Order Comment: Speci men Type: BLOOD SPECIMENOrdering Facility: [facility] [place] Address: [address] [place] [address] Performed By: #### 2 4323-8 ####[facility] LABORATORYCLIA [id number] [address] ALLIED HEALTHon 11-01-2022 ALLIED HEALTH HNO ID: [id number] Author: FARHAT Garcia) Service: Radiology Author Type: Technologist Type: Allied Health Filed: 11/01/2022 8:28 AM Note Text: Radiology Service Progress Note PATIENT NAME: Elena Galeano DATE OF SERVICE: November 01, 2022 TIME: 8:28 AM PATIENT IDENTITY VERIFICATION COMPLETED USING TWO (2) IDENTIFIERS: Name and Date of confirmed by patient verbally and Name and Date of confirmed by identification band. FALL SCREENING: Has the patient had 2 falls in the last year or 1 fall with injury or currently using an Ambulatory Assistive Device (Walker, Cane, Wheelchair, Crutches, etc.)? Inpatient: Screened on floor PATIENT GENDER DATA: Female. status: : No status: NO. PATIENT RELEVANT IMPLANT DATA REVIEWED: Yes RADIOLOGY DEPARTMENT: MR; Exam(s) Completed: Head: Routine Brain PERIPHERAL IV DATA: Inpatient: see LDA documentation SIGNED BY: GURPREET GarciaR) November 01, 2022 8:28 AM Normal [facility] CBC W Auto Differential pane l (Bld)on 11-01-2022 Basophils (Bld) [#/Vol] 0.05 10*3/uL Normal <0.11 [facility] Comment on above: Order Comment: Speci men Type: BLOOD SPECIMENOrdering Facility: [facility] [place] Address: [address] [place] [address] Performed By: #### 5 7021-8 ####[facility] LABORATORYCLIA [id number] [place] [address] [place] Basophils/100 WBC (Bld) 1.0 % Normal [facility] Comment on above: Order Comment: Speci men Type: BLOOD SPECIMENOrdering Facility: [facility] [place] Address: [address] [place] [address] Performed By: #### 5 7021-8 ####[facility] LABORATORYCLIA [id number] [place] [address] [place] Differential cell count method Nom (Bld) Auto Normal [facility] Comment on above: Order Comment: Speci men Type: BLOOD SPECIMENOrdering Facility: [facility] [place] Address: [address] [place] [address] Performed By: #### 5 7021-8 ####[facility] LABORATORYCLIA [id number] [place] [address] [place] Eosinophils (Bld) [#/Vol] 0.07 10*3/uL Normal <0.46 [facility] Comment on above: Order Comment: Speci men Type: BLOOD SPECIMENOrdering Facility: [facility] [place] Address: [address] [place] [address] Performed By: #### 5 7021-8 ####[facility] LABORATORYCLIA [id number] [address] [place] Eosinophils/100 WBC (Bld) 1.4 % Normal [facility] Comment on above: Order Comment: Speci men Type: BLOOD SPECIMENOrdering Facility: [facility] [place] Address: [address] [place] [address] Performed By: #### 5 7021-8 ####[facility] LABORATORYCLIA [id number] [address] [place] Erythrocyte distribution width (RBC) [Ratio] 13.0 % Normal 11.5-15.0 [facility] Comment on above: Order Comment: Speci men Type: BLOOD SPECIMENOrdering Facility: [facility] [place] Address: [address] [place] [address] Performed By: #### 5 7021-8 ####[facility] LABORATORYCLIA [id number] [place] [address] [place] Hematocrit (Bld) [Volume fraction] 39.2 % Normal 36.0-46.0 [facility] Comment on above: Order Comment: Speci men Type: BLOOD SPECIMENOrdering Facility: [facility] [place] Address: [address] [place] [address] Performed By: #### 5 7021-8 ####[facility] LABORATORYCLIA [id number] [address] [place] Hemoglobin (Bld) [Mass/Vol] 12.6 g/dL Normal 11.5-15.5 [facility] Comment on above: Order Comment: Speci men Type: BLOOD SPECIMENOrdering Facility: [facility] [place] Address: [address] [place] [address] Performed By: #### 5 7021-8 ####[facility] LABORATORYCLIA [id number] [address] [place] Immature granulocytes (Bld) [#/Vol] 10*3/uL Normal <0.10 [facility] Comment on above: Order Comment: Speci men Type: BLOOD SPECIMENOrdering Facility: [facility] [place] Address: [address] [place] [address] Performed By: #### 5 7021-8 ####[facility] LABORATORYCLIA [id number] [address] [place] Immature granulocytes/100 WBC (Bld) 0.4 % Normal [facility] Comment on above: Order Comment: Speci men Type: BLOOD SPECIMENOrdering Facility: [facility] [place] Address: [address] [place] [address] Performed By: #### 5 7021-8 ####[facility] LABORATORYCLIA [id number] [place] [address] [place] Lymphocytes (Bld) [#/Vol] 1.99 10*3/uL Normal 1.00-4.00 [facility] Comment on above: Order Comment: Speci men Type: BLOOD SPECIMENOrdering Facility: [facility] [place] Address: [address] [place] [address] Performed By: #### 5 7021-8 ####[facility] LABORATORYCLIA [id number] [address] [place] Lymphocytes/100 WBC (Bld) 39.7 % Normal [facility] Comment on above: Order Comment: Speci men Type: BLOOD SPECIMENOrdering Facility: [facility] [place] Address: [address] [place] [address] Performed By: #### 5 7021-8 ####[facility] LABORATORYCLIA [id number] [address] [place] MCH (RBC) [Entitic mass] 32.7 pg Normal 26.0-34.0 [facility] Comment on above: Order Comment: Speci men Type: BLOOD SPECIMENOrdering Facility: [facility] [place] Address: [address] [place] [address] Performed By: #### 5 7021-8 ####[facility] LABORATORYCLIA [id number] [address] [place] MCHC (RBC) [Mass/Vol] 32.1 g/dL Normal 30.5-36.0 [facility] Comment on above: Order Comment: Speci men Type: BLOOD SPECIMENOrdering Facility: [facility] [place] Address: [address] [place] [address] Performed By: #### 5 7021-8 ####[facility] LABORATORYCLIA [id number] [address] MCV (RBC) [Entitic vol] 101.8 fL High 80.0-100.0 [facility] Comment on above: Order Comment: Speci men Type: BLOOD SPECIMENOrdering Facility: [facility] [place] Address: [address] [place], [place] [address] Performed By: #### 5 7021-8 ####[facility] LABORATORYCLIA [id number] [address] Monocytes (Bld) [#/Vol] 0.60 10*3/uL Normal <0.87 [facility] Comment on above: Order Comment: Speci men Type: BLOOD SPECIMENOrdering Facility: [facility] [place] Address: [address] [place] [address] Performed By: #### 5 7021-8 ####[facility] LABORATORYCLIA [id number] [address] Monocytes/100 WBC (Bld) 12.0 % Normal [facility] Comment on above: Order Comment: Speci men Type: BLOOD SPECIMENOrdering Facility: [facility] [place] Address: [address] [place] [address] Performed By: #### 5 7021-8 ####[facility] LABORATORYCLIA [id number] [address] Neutrophils (Bld) [#/Vol] 2.28 10*3/uL Normal 1.45-7.50 [facility] Comment on above: Order Comment: Speci men Type: BLOOD SPECIMENOrdering Facility: [facility] [place] Address: [address] [place] [address] Performed By: #### 5 7021-8 ####[facility] LABORATORYCLIA [id number] [address] Neutrophils/100 WBC (Bld) 45.5 % Normal [facility] Comment on above: Order Comment: Speci men Type: BLOOD SPECIMENOrdering Facility: [facility] [place] Address: [address] [place] [address] Performed By: #### 5 7021-8 ####[facility] LABORATORYCLIA [id number] [address] [place] Nucleated RBC (Bld) [#/Vol] 0.05 10*3/uL High <0.01 [facility] Comment on above: Order Comment: Speci men Type: BLOOD SPECIMENOrdering Facility: [facility] [place] Address: [address] [place], [place] [address] [address] Performed By: #### 5 7021-8 ####[facility] LABORATORYCLIA [id number] [place] [address] [place] Nucleated RBC/100 WBC (Bld) [Ratio] 1.0 /100 WBC Normal [facility] Comment on above: Order Comment: Speci men Type: BLOOD SPECIMENOrdering Facility: [facility] [place] Address: [address] [place] [address] Performed By: #### 5 7021-8 ####[facility] LABORATORYCLIA [id number] [place] [address] [place] Platelet mean volume (Bld) [Entitic vol] 10.4 fL Normal 9.0-12.7 [facility] Comment on above: Order Comment: Speci men Type: BLOOD SPECIMENOrdering Facility: [facility] [place] Address: [address] [place] [address] Performed By: #### 5 7021-8 ####[facility] LABORATORYCLIA [id number] [place] [address] [place] Platelets (Bld) [#/Vol] 209 10*3/uL Normal 150-400 [facility] Comment on above: Order Comment: Speci men Type: BLOOD SPECIMENOrdering Facility: [facility] [place] Address: [address] [place] [address] Performed By: #### 5 7021-8 ####[facility] LABORATORYCLIA [id number] [place] [address] [place] RBC (Bld) [#/Vol] 3.85 10*6/uL Low 3.90-5.20 [facility] Comment on above: Order Comment: Speci men Type: BLOOD SPECIMENOrdering Facility: [facility] [place] Address: [address] Performed By: #### 5 7021-8 ####[facility] LABORATORYCLIA [id number] [place] [address] [place] WBC (Bld) [#/Vol] 5.01 10*3/uL Normal 3.70-11.00 [facility] Comment on above: Order Comment: Speci men Type: BLOOD SPECIMENOrdering Facility: [facility] [place] Address: [place] [address] Performed By: #### 5 7021-8 ####SIP[facility] LABORATORYCLIA [id number] [place] [address] [place] CNCOon 11-01-2022 CNCO Letter Text Normal [facility] CONSULTon 11-01-2022 CONSULT HNO ID: [id number] Author: Gregory Brown DO Service: Cardiovascular Medicine Author Type: Physician Type: Consults Filed: 11/01/2022 1:47 PM Note Text: CONSULT NOTE SERVICE DATE: 11/01/2022 SERVICE TIME: 1130 PHYSICIAN CONSULT Consult performed by: Gregory Bronw DO Consult ordered by: Martell Crespo MD Reason for consult: Left central retinal artery occlusion Assessment/Recommendat ions: 1. Left central retinal artery occlusion 2. History of symptomatic PVCs 3. History of non-Hodgkin's lymphoma and CLL, in remission 4. History of hypertension 5. History of hyperlipidemia particularly hypertriglyceridemia Recommendations: The patient's MRI does suggest a potential showering of fact as she had contralateral stroke in the right frontal region. She however does not have documentation of atrial fibrillation. She apparently confused atrial fibrillation with prior history of symptomatic PVCs. I reviewed her outpatient cardiology notes with no mention of atrial fibrillation whatsoever. I will ultimately defer to neurology's recommendations. She will need further evaluation in the outpatient setting including telemetry monitoring and possibly transesophageal echocardiography. In the interim she will need continued guideline directed therapy. Once she is cleared, she should also engage in a more healthful diet and lifestyle. We will follow along with you. Thank you for the pleasure and privilege of allowing us participate in her care along with you. PRIMARY CARE PHYSICIAN: Fernie Paredes DO Subjective The patient is a pleasant 62-year-old female who had sudden loss of vision on her left side. She presented to the hospital and found to have central retinal artery occlusion. Neurology evaluated her and found on MRI to have a right frontal small stroke as well. There was some suggestion of possible prior history of atrial fibrillation but unfortunate the patient was confused with her prior history of PVCs. She is relatively inactive. She is retired. She denies chest discomfort, dyspnea on exertion, orthopnea, paroxysmal nocturnal dyspnea, near-syncope or syncope. She does have a history of extensive palpitations due to her symptomatic PVCs. She has had previous extensive cardiovascular work-up which has been negative including echocardiography and nuclear stress imaging. She is lives at home with her spouse. She is a non-smoker, social drinker. FUNCTIONAL STATUS: Independent PAST MEDICAL HISTORY Diagnosis Date Anxiety Depression Hypertension Lymphoma (HCC) 10/2010 Right knee pain 06/12/2014 PAST SURGICAL HISTORY Procedure Laterality Date ANESTH OPEN/SURG ARTHRS TOTAL KNEE ARTHROPLASTY 05/19/2015 right TKA APPENDECTOMY ARTHROSCOPY KNEE SUBCHONDROPLAST 10/11/2014 right knee medial menisectomy AND femoral tibial subchondroplasty COLONOSCOPY FLX DX W/COLLJ SPEC WHEN PFRMD 05/31/13 Colonoscopy EGD 2013 PAST SURGICAL HISTORY OF left ovary and fallopian tube removed for a benign cyst, done in her 's PAST SURGICAL HISTORY OF Pilonidal cyst removed PAST SURGICAL HISTORY OF 01/2013 port a cath, left , 2011 with revision in 2012 TONSILLECTOMY PRIMARY/SECONDARY Tonsillectomy FAMILY HISTORY Problem Relation Age of Onset None Mother None Father None Sister X 3 None Brother X 2 Social History Tobacco Use Smoking status: Former Packs/day: 0.50 Years: 30.00 Pack years: 15.00 Types: Cigarettes Quit date: 01/22/2013 Years since quittin.7 Smokeless tobacco: Never Vaping Use Vaping Use: Never used Substance Use Topics Alcohol use: No Drug use: No traZODone (DESYREL) 100 mg tablet, Take 100 mg by mouth., Disp: , Rfl: , 10/29/[address] (PROTONIX) 40 mg tablet, Take 40 mg by mouth., Disp: , Rfl: , 10/30/2022 at 0900 buPROPion XL (WELLBUTRIN XL) 300 mg 24 hr tablet, Take 300 mg by mouth., Disp: , Rfl: , 10/30/2022 escitalopram oxalate (LEXAPRO) 20 mg tablet, Take 1 tablet by mouth once daily., Disp: , Rfl: , 10/30/2022 at 0900 carvedilol (COREG) 12.5 mg tablet, Take 12.5 mg by mouth., Disp: , Rfl: , 10/30/2022 Fenofibrate (LOFIBRA) 160 mg tablet, Take 1 tablet by mouth once daily., Disp: , Rfl: , 10/30/2022 at 0900 REPATHA SURECLICK 140 mg/mL pen injector, Inject 1 mL under the skin every 14 days., Disp: , Rfl: , 10/22/2022 aspirin, enteric coated (ASPIRIN, ENTERIC COATED) 81 mg EC tablet, Take 81 mg by mouth., Disp: , Rfl: , 10/30/2022 fenofibrate nanocrystallized (TRICOR) 145 mg tablet, Take 1 tablet by mouth once daily., Disp: 90 tablet, Rfl: 3, 10/29/2022 triamterene-hydrochlor othiazide 37.5-25 mg per tablet, Take 1 tablet by mouth once daily., Disp: , Rfl: , 10/30/2022 at 0900 albuterol HFA (PROVENTIL HFA, VENTOLIN HFA) 90 mcg/actuation inhaler, Inhale 2 Puffs as instructed every 6 hours as needed., Disp: , Rfl: oxyCODONE-acetaminophe n (PERCOCET) 5-325 mg tablet, Take 1 tablet by mouth (more content not included)... Normal [facility] Comprehensive metabolic 2000 panelon 11-01-2022 Albumin [Mass/Vol] 3.4 g/dL Low 3.9-4.9 [facility] Comment on above: Order Comment: Speci men Type: BLOOD SPECIMENOrdering Facility: [facility] [place] Address: [address] [place], [place] [address] Performed By: #### 2 4331-1, ####SIPSE[facility] LABORATORYCLIA [id number] [place] [address] [place] [facility] ALP [Catalytic activity/Vol] 49 U/L Normal 34-123 [facility] Comment on above: Order Comment: Speci men Type: BLOOD SPECIMENOrdering Facility: [facility] [place] Address: [address] [place] [address] Performed By: #### 2 4331-, ####SIPSEY LABORATORYCLIA [id number] [address] STATES OF [facility] ALT [Catalytic activity/Vol] 23 U/L Normal 7-38 [facility] Comment on above: Order Comment: Speci men Type: BLOOD SPECIMENOrdering Facility: [facility] [place] Address: [address] [place] [address] Performed By: #### 2 4331-1, 59837-2 ####[facility] LABORATORYCLIA [id number] [place] [address] [place] Anion gap [Moles/Vol] 21 mmol/L High 9-18 [facility] Comment on above: Order Comment: Speci men Type: BLOOD SPECIMENOrdering Facility: [facility] [place] Address: [address] [place] [address] Performed By: #### 2 4331-1, ####[facility] LABORATORYCLIA [id number] [place] [address] [place] AST [Catalytic activity/Vol] Normal [facility] Comment on above: Order Comment: Speci men Type: BLOOD SPECIMENOrdering Facility: [facility] [place] Address: [address] [place] [address] Result Comment: Unab le to assay due to interference from hemolysis. Suggest reorder as clinically indicated. Performed By: #### 2 433-1, 63208-2 ####[facility] LABORATORYCLIA [id number] [place] [address] [place] Bilirubin [Mass/Vol] 0.5 mg/dL Normal 0.2-1.3 [facility] Comment on above: Order Comment: Speci men Type: BLOOD SPECIMENOrdering Facility: [facility] [place] Address: [address] [place] [address] Performed By: #### 2 433-1, ####[facility] LABORATORYCLIA [id number] [address] [place] Calcium [Mass/Vol] 9.3 mg/dL Normal 8.5-10.2 [facility] Comment on above: Order Comment: Speci men Type: BLOOD SPECIMENOrdering Facility: [facility] [place] Address: [address] [place] [address] Performed By: #### 2 4331-1, 48594-1 ####[facility] LABORATORYCLIA [id number] [address] STATES [facility] Chloride [Moles/Vol] 105 mmol/L Normal 97-105 [facility] Comment on above: Order Comment: Speci men Type: BLOOD SPECIMENOrdering Facility: [facility] [place] Address: [address] [place] [address] Performed By: #### 2 4331-1, ####L[facility] LABORATORYCLIA [id number] [place] [address] [place] CO2 [Moles/Vol] 14 mmol/L Low 22-30 [facility] Comment on above: Order Comment: Speci men Type: BLOOD SPECIMENOrdering Facility: [facility] [place] Address: [address] [place] [address] Performed By: #### 2 4331-1, ####LOPEZ LABORATORYCLIA [id number] [address] Creatinine [Mass/Vol] 0.80 mg/dL Normal 0.58-0.96 [facility] Comment on above: Order Comment: Speci men Type: BLOOD SPECIMENOrdering Facility: [facility] [place] Address: [address] [place] [address] Performed By: #### 2 4331-1, ####LOPEZ LABORATORYCLIA [id number] [address] ESTIMATED GLOMERULAR FILTRATION RATE 82 mL/min/1.73m??? Normal >=60 [facility] Comment on above: Order Comment: Speci men Type: BLOOD SPECIMENOrdering Facility: [facility] [place] Address: [address] [place] [address] Result Comment: Nay mated Glomerular Filtration Rate (eGFR) is calculated using the 2020 CKD-EPI creatinine equation. This equation utilizes serum creatinine, sex, and age as parameters. The creatinine assay has traceable calibration to isotope dilution-mass spectrometry. Refer to KDIGO guidelines for clinical interpretation. In patients with unstable renal function, e.g. those with acute kidney injury, the eGFR may not accurately reflect actual GFR. Performed By: #### 2 4331-1, ####LOPEZ LABORATORYCLIA [id number] [place] [address] [place] Glucose [Mass/Vol] 113 mg/dL High 74-99 [facility] Comment on above: Order Comment: Brian ramey Type: BLOOD SPECIMENOrdering Facility: [facility] [place] Address: [address] [place] [address] Result Comment: The [place] Diabetes Association (ADA) provides guidance for cutoff values for fasting glucose and random glucose. The ADA defines fasting as no caloric intake for at least 8 hours. Fasting plasma glucose results between 100 to 125 mg/dL indicate increased risk for diabetes (prediabetes). Fasting plasma glucose results greater than or equal to 126 mg/dL meet the criteria for diagnosis of diabetes. In the absence of unequivocal hyperglycemia, results should be confirmed by repeat testing. In a patient with classic symptoms of hyperglycemia or hyperglycemic crisis, random plasma glucose results greater than or equal to 200 mg/dL meet the criteria for diagnosis of diabetes. Reference: Standards of Medical Care in Diabetes 2016, [place] Diabetes Association. Diabetes Care. 2016.39(Suppl 1). Performed By: #### 2 4331-1, 00012-3 ####LOPEZ LABORATORYCLIA [id number] [place] [address] [place] Potassium [Moles/Vol] 4.3 mmol/L Normal 3.7-5.1 [facility] Comment on above: Order Comment: Brian ramey Type: BLOOD SPECIMENOrdering Facility: [facility] [place] Address: [address] [place] [address] Performed By: #### 2 4331-1, 81590-9 ####LOPEZ LABORATORYCLIA [id number] [place] [address] [place] Protein [Mass/Vol] 6.6 g/dL Normal 6.3-8.0 [facility] Comment on above: Order Comment: Brian ramey Type: BLOOD SPECIMENOrdering Facility: [facility] [place] Address: [address] [place] [address] Performed By: #### 2 4331-1, 30027-9 ####LOPEZ LABORATORYCLIA [id number] [place] [address] [place] Sodium [Moles/Vol] 140 mmol/L Normal 136-144 [facility] Comment on above: Order Comment: Speci men Type: BLOOD SPECIMENOrdering Facility: [facility] [place] Address: [place] [id number] Performed By: #### 2 4331-1, 25664-7 ####SIPSEY LABORATORYCLIA [id number] [place] [id number] [facility] Urea nitrogen [Mass/Vol] 12 mg/dL Normal 7-21 [facility] Comment on above: Order Comment: Speci men Type: BLOOD SPECIMENOrdering Facility: [facility] [place] Address: [place] [address] Performed By: #### 2 4331-1, 73569-3 ####SIPSEY LABORATORYCLIA [id number] [place] [id number] [facility] ECHOon 11-01-2022 Echocardiography Echocardiography Report: Transthoracic Echo [facility] Date of service: 11/01/2022 9:10:22 AM Ordering physician: ELANA GARCIA Indication: Stroke Technologist: Blanquita Torres [facility] Interpreting physician: Deondre Lorenz MD PATIENT: Name: MRS. ELENA GALEANO : 1960 Age: 62 years Gender: F History of hypertension and dyslipidemia. Primary rhythm: sinus. Height: 165.10 cm BSA: 2.10 m Weight: 96.16 kg BMI: 35.3 kg/m Heart rate 69 bpm Blood pressure 194/92 mmHg Agitated saline was administered to rule out shunt. Color Doppler was utilized to interrogate the cardiac valves assessed and spectral Doppler was utilized to determine the flow velocities and pressure gradients reported in this exam. MEASUREMENTS: Value Indexed Normal Max aortic dimension 2.5 cm Ao < 3.8 Left atrial volume 68 ml (biplane A-L) 33 ml/m Ary <= 34 LV ID (diastole) 4.7 cm (2D) 2.22 cm/m LV ID (systole) 3.4 cm (2D) 1.61 cm/m IVS, leaflet tips 1.3 cm (2D) Posterior wall thickness 0.9 cm (2D) Left ventricular mass 186 g (2D) 88 g/m LV stroke volume 70 ml (2D biplane) LV end diastolic volume 109 ml (2D biplane) 51.7 ml/m 29<=EDVi<62 LV end systolic volume 38 ml (2D biplane) 18.1 ml/m Ejection Fraction 65 % (2D biplane) EF > 54 FINDINGS: LEFT VENTRICLE The left ventricle is normal in size. There is mild septal left ventricular hypertrophy. Left ventricular systolic function is normal. Indeterminate left ventricular diastolic dysfunction. Mitral annular lateral E/e': 15.3. Mitral annular septal E/e': 18.3. Wall Motion: All scored segments are normal. RIGHT VENTRICLE The right ventricle is normal in size. Right ventricular systolic function is normal. RV systolic tissue Doppler velocity is 12.4 cm/s. Tricuspid annular displacement is 1.7 cm. Estimated right ventricular systolic pressure is likely underestimated due to a weak or incomplete tricuspid regurgitation signal and is, at least, 24 mmHg consistent with normal pulmonary artery pressures. Estimated right atrial pressure is 8 mmHg based on IVC assessment. LEFT ATRIUM The left atrial cavity is normal in size. RIGHT ATRIUM The right atrial cavity is normal in size. Inferior Vena Cava: The inferior vena cava appears normal measuring 1.5 cm. The vessel decreases less than 50 percent with inspiration. MITRAL VALVE There is mild mitral annular calcification observed posterior. There is trace (trace - 1+) mitral valve regurgitation. There is mild thickening. The pressure half time is 44 msec. The peak mitral E/A ratio is 1.16. The average mitral E/e' ratio is 16.8. The mitral flow deceleration time is 153 msec. TRICUSPID VALVE The tricuspid valve leaflets are structurally normal. There is trace tricuspid valve regurgitation. AORTIC VALVE There is no aortic valve regurgitation. Tricuspid aortic valve. There is mild thickening. The peak gradient is 9 mmHg (peak velocity = 152.0 cm/s). PULMONIC VALVE The pulmonic valve cusps are structurally normal. There is trace pulmonic valve regurgitation. AORTA The visualized aorta is normal in size. Measurements - Mid ascending aorta 2.5 cm. PULMONARY ARTERIES The pulmonary arteries are unseen or not interrogated. INTERATRIAL SEPTUM The interatrial septum is normal. There is no patent foramen ovale as detected by Doppler and agitated saline contrast. INTERVENTRICULAR SEPTUM The interventricular septum is normal. PERICARDIUM There is no pericardial effusion. There is an epicardial fat pad. CONCLUSIONS: - Exam indication: Stroke - The left ventricle is normal in size. There is mild septal left ventricular hypertrophy. Left ventricular systolic function is normal. EF = 65 5% (2D biplane) Indeterminate left ventricular diastolic dysfunction. - The right ventricle is normal in size. Right ventricular systolic function is normal. - Estimated right ventricular systolic pressure is likely underestimated due to a weak or incomplete tricuspid regurgitation signal and is, at least, 24 mmHg consistent with normal pulmonary artery pressures. Estimated right atrial pressure is 8 mmHg based on IVC assessment. - There is no patent foramen ovale as detected by Doppler and agitated saline contrast. - Agitated saline study is negative for shunt (clip 86). - Exam was compared with the prior echocardiographic exam performed on 03/20/2013. There is no significant change. * * * Final * * * [facility] : [id number] sSISUID Normal [facility] Lipid 1996 panelon 3 Cholesterol [Mass/Vol] 150 mg/dL Normal <200 [facility] Comment on above: Order Comment: Speci men Type: BLOOD SPECIMENOrdering Facility: [facility] [place] Address: [address] [place] [address] Result Comment: <200 mg/dL, Desirable 200-239 mg/dL, Borderline high >239 mg/dL, High Performed By: #### 2 4331-1, 86712-3 ####SIPSEY LABORATORYCLIA [id number] [place], [place] [id number] [place] [address] OF [facility] Cholesterol in HDL [Mass/Vol] 61 mg/dL Normal >39 [facility] Comment on above: Order Comment: Speci men Type: BLOOD SPECIMENOrdering Facility: [facility] [place] Address: [address] [place] [address] Result Comment: 40-5 9 mg/dL, Acceptable >59 mg/dL, High: Negative risk factor for coronary heart disease <40 mg/dL, Low: Positive risk factor for coronary heart disease Performed By: #### 2 4331-1, 34956-5 ####LOPEZ LABORATORYCLIA [id number] [address] Cholesterol in LDL [Mass/Vol] 31 mg/dL Normal <100 [facility] Comment on above: Order Comment: Brian karoline Type: BLOOD SPECIMENOrdering Facility: [facility] [place] Address: [address] [place] [address] Result Comment: <100 mg/dL, Optimal 100-129 mg/dL, Near optimal/above optimal 130-159 mg/dL, Borderline high 160-189 mg/dL, High >189 mg/dL, Very high Secondary prevention optimal LDL Cholesterol levels are recommended to be < 70 mg/dL Performed By: #### 2 4331-1, 13635-3 ####LOPEZ LABORATORYCLIA [id number] [address] Cholesterol in LDL/Cholesterol in HDL [Mass ratio] 0.51 {ratio} Normal <2.54 [facility] Comment on above: Order Comment: Brian ramey Type: BLOOD SPECIMENOrdering Facility: [facility] [place] Address: [address] [place] [address] Result Comment: Refe rence: 1. National Cholesterol Education Program ATP III Guideline At-A-Glance Quick Desk Reference: National Heart, Lung, and Blood Brush. National Institutes of Health. 2001: NIH Publication No. 01-3305. 2. An International Atherosclerosis Society position paper: global recommendations for the management of dyslipidemia: executive summary, Atherosclerosis. 2014: 232(2):410-413. Performed By: #### 2 4331-, ####LOPEZ LABORATORYCLIA [id number] [address] Cholesterol in VLDL [Mass/Vol] 58 mg/dL High <30 [facility] Comment on above: Order Comment: Brian karoline Type: BLOOD SPECIMENOrdering Facility: [facility] [place] Address: [address] [place] [address] Performed By: #### 2 4331-, ####LOPEZ LABORATORYCLIA [id number] [address] [place] Cholesterol non HDL [Mass/Vol] 89 mg/dL Normal <130 [facility] Comment on above: Order Comment: Speci men Type: BLOOD SPECIMENOrdering Facility: [facility] [place] Address: [address] [place] [address] Result Comment: <130 mg/dL, Optimal 130-159 mg/dL, Near optimal/above optimal 160-189 mg/dL, Borderline high 190-219 mg/dL, High >219 mg/dL, Very high Secondary prevention optimal non HDL Cholesterol levels are recommended to be <100 mg/dL Performed By: #### 2 4331-1, 09725-7 ####LOPEZ LABORATORYCLIA [id number] [address] Cholesterol.total/Ch olesterol in HDL [Mass ratio] 2.46 {ratio} Normal <5.10 [facility] Comment on above: Order Comment: Speci men Type: BLOOD SPECIMENOrdering Facility: [facility] [place] Address: [address] [place] [address] Performed By: #### 2 4331-1, ####LOPEZ LABORATORYCLIA [id number] [address] FASTING TIME 10 hrs Normal [facility] Comment on above: Order Comment: Speci men Type: BLOOD SPECIMENOrdering Facility: [facility] [place] Address: [address] [place] [address] Performed By: #### 2 4331-1, 06435-5 ####LOPEZ LABORATORYCLIA [id number] [address] Triglyceride [Mass/Vol] 289 mg/dL High <150 [facility] Comment on above: Order Comment: Speci men Type: BLOOD SPECIMENOrdering Facility: [facility] [place] Address: [address] [place] [address] Result Comment: <150 mg/dL, Normal 150-199 mg/dL, Borderline high 200-499 mg/dL, High >499 mg/dL, Very high Performed By: #### 2 4331-1, 86224-2 ####LOPEZ LABORATORYCLIA [id number] [address] MRI BRAIN WO IVCONon 023 MRI BRAIN WO IVCON * * *Final Report* * * DATE OF EXAM: Nov 01 2022 8:39AM [facility] 0294 - MRI BRAIN WO IVCON / PROCEDURE REASON: Transient ischemic attack (TIA) * * * * Physician Interpretation * * * * EXAMINATION: MRI BRAIN WO IVCON CLINICAL HISTORY: TIA TECHNIQUE: Routine noncontrast MRI protocol including diffusion images. MQ: [id number] COMPARISON: CT brain 10/30/22 RESULT: Acute Change: Focus of increased DWI within the right frontal periventricular white matter with no definite low ADC signal suggesting subacute evolving lacunar infarct. No hemorrhagic conversion. No other restricted diffusion identified. Hemorrhage: No evidence of prior parenchymal hemorrhage on the SWI. Mass Lesion/ Mass Effect: No evidence of an intracranial mass or extra-axial fluid collection. No significant mass effect. Chronic Change: The white matter is within normal limits of signal intensity for age. Parenchyma: No significant volume loss for age. The brain parenchyma is otherwise within normal limits of signal intensity and morphology. Ventricles: Normal caliber and morphology. Skull Base: Hypothalamic and pituitary region are grossly normal. Craniocervical junction is normal. No significant marrow replacement process. Vasculature: Major intracranial arterial structures, and dural venous sinuses show typical flow void, suggesting patency by spin echo criteria. Other: The visualized paranasal sinuses and mastoid air cells are clear. The orbits and extracranial soft tissues are unremarkable. IMPRESSION: Findings suggesting small subacute nonhemorrhagic lacunar infarct right frontal periventricular white matter. Business Controller: MALCOLM Transcribe Date/Time: Nov 01 2022 8:51A Dictated by : SALUD BHATIA MD This examination was interpreted and the report reviewed and electronically signed by: SALUD BHATIA MD on Nov 01 2022 8:54AM EST [id number] [facility] THERAPY NTon 11-01-2022 THERAPY NT HNO ID: [id number] Author: Libertad Molina OT/L Service: Occupational Therapy Author Type: Occupational Therapist Type: Therapy (PT/OT/Speech/Resp) Filed: 11/01/2022 3:02 PM Note Text: Occupational Therapy Evaluation SERVICE DATE: 11/01/2022 SERVICE TIME: 1355 to 1433 ROOM: [place] [address] Recommended Discharge Disposition: Outpatient Occupational Therapy (Telephonic Nurse Case Manager Rehabilitation Program) Anticipated Discharge Needs: Supervision at Home;Physical Assist at Home Physical Assist at Home for: Transportation;Shoppin g;Meals;Laundry;Cleani ng;Safety Supervision at Home due to: Decreased safety awareness (new visual deficits) OT 6 Clicks Score: 24 Precautions/Activity Restrictions: Fall Risk;Other: See Comments (no driving until driving assessmnet) Current Hospital Course: MRI brain showed small right frontal stroke Reason for Hospital Admission: L eye vision loss Relevant Past Medical History: CLL in remission, non-Hodgkin lymphoma status post chemotherapy in remission, paroxysmal A. fib not on anticoagulation, GERD, hypertension, dyslipidemia, PERCY noncompliant to CPAP, depression PAST MEDICAL HISTORY Diagnosis Date Anxiety Depression Hypertension Lymphoma (HCC) 10/2010 Right knee pain 06/12/2014 PAST SURGICAL HISTORY Procedure Laterality Date ANESTH OPEN/SURG ARTHRS TOTAL KNEE ARTHROPLASTY 05/19/2015 right TKA APPENDECTOMY ARTHROSCOPY KNEE SUBCHONDROPLAST 10/11/2014 right knee medial menisectomy AND femoral tibial subchondroplasty COLONOSCOPY FLX DX W/COLLJ SPEC WHEN PFRMD 05/31/13 Colonoscopy EGD 2013 PAST SURGICAL HISTORY OF left ovary and fallopian tube removed for a benign cyst, done in her 20's PAST SURGICAL HISTORY OF Pilonidal cyst removed PAST SURGICAL HISTORY OF 01/2013 port a cath, left , 2011 with revision in 2012 TONSILLECTOMY PRIMARY/SECONDARY Tonsillectomy Response to Therapy Interventions: Good participation in activities Assessment Comments: Pt Aox3. pt demos equal BUE MMT, ROM, coordination, sensation. L eye complete visual loss. Pt IND with mobility and ADLs, encouragement to turn head to L to be aware of objects. clock draw test normal. Rec [employer]OT Driving Rehabiliation Program and family assist PRN for driving needs and IADLS. Continue skilled needs due to: Continued monitoring of vital signs during mobility required, Functional impairment, Safety concerns, Low vision impairment Occupational Therapy Problem List: Balance Impaired;Decreased Activity Tolerance;Safety Deficits (new visual deficits) Cognition/Communicatio n Deficits Orientation Deficits: (Aox3) Responsiveness: Alert, Awake Follows Commands: 3-step Commands, Cueing Needed Cueing to Follow Commands: Minimum Cognitive Clinical Tests and Screens: 4AT Screening 4AT Screening Assess alertness (ask patient to state their name and address): Normal (fully alert, but not agitated, throughout assessment) Ask patient: age, date of , current year, and current location: No mistakes Ask patient to tell me the months of the year backwards order, starting with September: Able to state 7+ months correctly Acute change or fluctuating mental status: No 4AT Score: 0 Delirium Positive/Negative: Negative Treatment Interventions: Balance Training;Functional Mobility Training;Self Care / Home Management Plan for next visit: Vision training, Standing tolerance, Standing balance Home Environment Patient Lives With: Spouse Assistance Available: 24-Hour (spouse home until November, then retrires in December) Entry To Home: Stairs Number Of Stairs Into Home: 1 Number Of Stairs To Bed/Bath: 0 Tub/Shower Type: walk in with shower chair Laundry: basement 12 stairs, no railing, pt usually completes Equipment Owned: Shower Chair;Cane;Wheeled Walker Prior Functional Level: Within Functional Limits Prior Functional Level Comments: Pt was IND with ADLs/IADLS, + driving, ambulates without AD. 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 Life Roles: Spouse/Significant Other Identified Strengths: Access to Healthcare Identified Barriers: Difficulty with ADLs/IADLs Patient Report: I'm feeling OK for the most part CURRENT FUNCTIONAL STATUS: Most recent performance Current Activities of Daily Living Assist Level Additional Information Feeding Independent Grooming Independent Bathing Upper Body Independent Bathing Lower Body Independent Dressing Upper Body Independent Dressing Lower Body Independent Toileting Independent Instrumental Activities of Daily Living Assist Level Additional Information Meal/Beverage Prep Cleaning Laundry Medication Management with Strategies Functional Mobility Assist Level Additional Information Rolling Supine to Sit Independent Sit to Supine Independent Scooting Sit to Stand Independent Stand to Sit Independent Bed to Chair Toilet/Commode Shower Functional Mobility Independe (more content not included)... [facility] THERAPY NT HNO ID: [id number] Author: Kae Angela, PT Service: Physical Therapy Author Type: Physical Therapist Type: Therapy (PT/OT/Speech/Resp) Filed: 11/01/2022 10:17 AM Note Text: PHYSICAL THERAPY MISSED VISIT SERVICE DATE: 11/01/2022 SERVICE TIME: 1009 to 1010 ROOM: [place] [address] Patient not seen due to No Skilled Needs (Pt observed ambulating independently in room, reports mobility at baseline except eye. Pt reports no PT needs, order to be discontinued, services remain available if pt condition changes. Pt is + CVA.). SIGNATURE: Kae Angela PT PATIENT NAME: Elena Galeano DATE: November 01, 2022 TIME: 10:17 AM [facility] ALLIED HEALTHon 10-31-2022 ALLIED HEALTH HNO ID: [id number] Author: Nan Angel RT(R) Service: Radiology Author Type: Technologist Type: Allied Health Filed: 10/31/2022 9:25 AM Note Text: Radiology Service Progress Note PATIENT NAME: Elena Galeano DATE OF SERVICE: October 31, 2022 TIME: 9:24 AM PATIENT IDENTITY VERIFICATION COMPLETED USING TWO (2) IDENTIFIERS: Name and Date of confirmed by patient verbally. FALL SCREENING: Has the patient had 2 falls in the last year or 1 fall with injury or currently using an Ambulatory Assistive Device (Walker, Cane, Wheelchair, Crutches, etc.)? No PATIENT GENDER DATA: Female. status: : No status: N/A PATIENT RELEVANT IMPLANT DATA REVIEWED: Not Applicable RADIOLOGY DEPARTMENT: Ultrasound PERIPHERAL IV DATA: Not applicable SIGNED BY: Nan Angel Rvt October 31, 2022 9:24 AM [facility] CASE MGT INIT ASSESon 2022 CASE MGT INIT [facility] HNO ID: [id number] Author: Blanquita Barboza RN Service: Behavioral Health Author Type: Registered Nurse Type: Care Mgt Initial Assessment Filed: 10/31/2022 2:20 PM Note Text: CARE MANAGEMENT: ASSESSMENT AND DISCHARGE PLAN SERVICE DATE: October 31, 2022 SERVICE TIME: 2:17 PM PRIMARY CARE PHYSICIAN: Fernie Paredes DO Confirmed with patient. Primary Contact: Extended Emergency Contact Information Primary Emergency Contact: Ashu Galeano Address: [address] [place] [id number] [place] Mobile Relation: Spouse ADMISSION STATUS: Observation Insurance Provider: [facility] [place] [employer] NEEDS PRIOR TO DISCHARGE Needs Prior to Discharge: To Be Determined;OT/PT Evaluation POTENTIAL TRANSITION PLANS Home;To Be Determined Based on clinical judgement, Care Management will address the following needs: No transitional/discharge planning needs at this time Patient's perception of need for this admission: sudden loss of vision to left eye ADVANCE DIRECTIVES Current Advance Directive: Health Care Power of Protection Agent;Living Will In Chart: No MS/BEHAVIOR Baseline Mental Status Prior to this Illness what was the patient's Baseline Mental Status?: Alert AND Oriented Prior to this illness, has anyone described the patient having any of the following behaviors?: Not Applicable Relationship of the informant to the patient:: Self READMISSION Last Discharge Date: 06/18/21 Is this Within the Past 30 days? From what level of care did patient present?: Home Last discharge within 30 days: No PATIENT SCREEN Patient/Architecture Manager Stated Goals: To have reduction in symptoms;To return home to life as it was;To be cured/healed Under the care of a PCP?: Yes, External Provider Provider Name: Fernie Paredes Last Known Visit: 2 months ago Does the patient have transportation upon discharge?: Yes Situation: Use of any community resources?: No Does the patient have a stable and supportive living arrangement and home setting?: Yes Are there any potential risks or gaps identified by risk/functional/fall,e tc. scores in the EMR?: No Any potential risks related to substance abuse and/or behavioral health?: No Based on clinical judgement, Care Management will address the following needs: No transitional/discharge planning needs at this time CAREGIVER ASSESSMENT Caregiver is ready, willing and able to meet the patient's needs as recommended by the inter-professional team:: Other: See Comment (TBD) Patient's transition needs and plan for meeting these needs: TBD MEDICAL Medical Needs: Two or more chronic diseases;Cancer - active treatment/follow up Health Issues Impacting Discharge Plan: Newly diagnosed;Chronic Newly Diagnosed: Central retinal artery occlusion Chronic: Afib, Anxiety, Depression, HTN, CLL Medication Adherance I am convinced of the importance of my prescription medication: 0 - Agree Completely I worry that my prescription medication will do more harm than good to me : 0 - Disagree Completely I feel financially burdened by my yrp-nh-uvjwjy expenses for my prescription medication:: 0 - Disagree Completely Risk Score: 0 Patient is categorized as: Low risk < 2 SOCIAL Living Arrangements: Home Lives With: Spouse Financial Resources: Retired Supportive Patient Contact:: Yes Contact Resources: Family Family Name/Phone: Ashu Briseno [phone] Is Patient Psychosocially Complex?: No Contact Resources: Family Family Name/Phone: Ashu Briseno [phone] Health Literacy How often do you need to have someone help you when you read instructions, pamphlets, or other written material from your doctor or pharmacy? : 1 - Never How confident are you filling out medical forms by yourself?: 1 - Extremely If Patient scores > 3 on either question, the following interventions were put into place:: Patient did not score > 3 on either question. Food Insecurity: Not on file Financial Resource Strain: Not on file Transportation Needs: Not on file Housing Stability: Not on file BEHAVIORAL/COGNITIVE Psychosocial Psychosocial Needs: Mental Health Diagnosis Mental Health Information: Anxiety and depression FUNCTIONAL How do you manage to accomplish the following: Independent: Ambulation;Bathe/Showe r;Dress;Meals/Meal Prep;Going to the bathroom;Medication Management;Transportat ion to appointments/community Services/Needs//Equipm ent Does Patient Currently Receive Any Community Services or Home Care?: None Equipment Prior to Admission: None Has the Patient Been in a Penitentiary Facility in the Past 30 days?: No FREEDOM OF CHOICE EXPLAINED: [place] of Choice Given: No Reason Not Given: Unable to complete with this assessment - revisit Are you interested in bedside delivery of your medications? No Preferred outpatient pharmacy is [facility] (more content not included)... Normal [facility] CBC W Auto Differential pane l (Bld)on 10-31-2022 Basophils (Bld) [#/Vol] 0.04 10*3/uL Normal <0.11 [facility] Comment on above: Order Comment: Speci men Type: BLOOD SPECIMENOrdering Facility: [facility] [place] Address: [address] [address] Performed By: #### 5 7021-8 ####LOPEZ LABORATORYCLIA [id number] [place] [address] [place] Basophils/100 WBC (Bld) 0.6 % Normal [facility] Comment on above: Order Comment: Brian men Type: BLOOD SPECIMENOrdering Facility: [facility] [place] Address: [address] [address] Performed By: #### 5 7021-8 ####LOPEZ LABORATORYCLIA [id number] [address] Differential cell count method Nom (Bld) Auto Normal [facility] Comment on above: Order Comment: Speci men Type: BLOOD SPECIMENOrdering Facility: [facility] [place] Address: [address] [place] [address] Performed By: #### 5 7021-8 ####LOPEZ LABORATORYCLIA [id number] [place] [address] [place] Eosinophils (Bld) [#/Vol] 0.05 10*3/uL Normal <0.46 [facility] Comment on above: Order Comment: Speci men Type: BLOOD SPECIMENOrdering Facility: [facility] [place] Address: [address] [place] [address] Performed By: #### 5 7021-8 ####LOPEZ LABORATORYCLIA [id number] [address] [place] Eosinophils/100 WBC (Bld) 0.8 % Normal [facility] Comment on above: Order Comment: Speci men Type: BLOOD SPECIMENOrdering Facility: [facility] [place] Address: [address] [place] [address] Performed By: #### 5 7021-8 ####LOPEZ LABORATORYCLIA [id number] [address] [place] Erythrocyte distribution width (RBC) [Ratio] 12.8 % Normal 11.5-15.0 [facility] Comment on above: Order Comment: Speci men Type: BLOOD SPECIMENOrdering Facility: [facility] [place] Address: [address] [place] [address] Performed By: #### 5 7021-8 ####LOPEZ LABORATORYCLIA [id number] [address] [place] Hematocrit (Bld) [Volume fraction] 36.3 % Normal 36.0-46.0 [facility] Comment on above: Order Comment: Speci men Type: BLOOD SPECIMENOrdering Facility: [facility] [place] Address: [address] [place] [address] Performed By: #### 5 7021-8 ####LOPEZ LABORATORYCLIA [id number] [place] [address] [place] Hemoglobin (Bld) [Mass/Vol] 12.2 g/dL Normal 11.5-15.5 [facility] Comment on above: Order Comment: Speci men Type: BLOOD SPECIMENOrdering Facility: [facility] [place] Address: [address] [address] Performed By: #### 5 7021-8 ####LOPEZ LABORATORYCLIA [id number] [place] [address] [place] Immature granulocytes (Bld) [#/Vol] 10*3/uL Normal <0.10 [facility] Comment on above: Order Comment: Speci men Type: BLOOD SPECIMENOrdering Facility: [facility] [place] Address: [address] [place] [address] Performed By: #### 5 7021-8 ####LOPEZ LABORATORYCLIA [id number] [address] [place] Immature granulocytes/100 WBC (Bld) 0.3 % Normal [facility] Comment on above: Order Comment: Speci men Type: BLOOD SPECIMENOrdering Facility: [facility] [place] Address: [address] [address] Performed By: #### 5 7021-8 ####LOPEZ LABORATORYCLIA [id number] [place] [address] [place] Lymphocytes (Bld) [#/Vol] 2.21 10*3/uL Normal 1.00-4.00 [facility] Comment on above: Order Comment: Speci men Type: BLOOD SPECIMENOrdering Facility: [facility] [place] Address: [address] [address] Performed By: #### 5 7021-8 ####LOPEZ LABORATORYCLIA [id number] [place] [address] [place] [facility] [place] Lymphocytes/100 WBC (Bld) 33.5 % Normal [facility] Comment on above: Order Comment: Speci men Type: BLOOD SPECIMENOrdering Facility: [facility] [place] Address: [address] [address] Performed By: #### 5 7021-8 ####LOPEZ LABORATORYCLIA [id number] [address] MCH (RBC) [Entitic mass] 33.1 pg Normal 26.0-34.0 [facility] Comment on above: Order Comment: Speci men Type: BLOOD SPECIMENOrdering Facility: [facility] [place] Address: [address] [place] [address] Performed By: #### 5 7021-8 ####LOPEZ LABORATORYCLIA [id number] [address] MCHC (RBC) [Mass/Vol] 33.6 g/dL Normal 30.5-36.0 [facility] Comment on above: Order Comment: Speci men Type: BLOOD SPECIMENOrdering Facility: [facility] [place] Address: [address] [place] [address] Performed By: #### 5 7021-8 ####LOPEZ LABORATORYCLIA [id number] [address] MCV (RBC) [Entitic vol] 98.4 fL Normal 80.0-100.0 [facility] Comment on above: Order Comment: Speci men Type: BLOOD SPECIMENOrdering Facility: [facility] [place] Address: [address] [place] [address] Performed By: #### 5 7021-8 ####LOPEZ LABORATORYCLIA [id number] [address] Monocytes (Bld) [#/Vol] 0.74 10*3/uL Normal <0.87 [facility] Comment on above: Order Comment: Speci men Type: BLOOD SPECIMENOrdering Facility: [facility] [place] Address: [address] [place] [address] Performed By: #### 5 7021-8 ####LOPEZ LABORATORYCLIA [id number] [address] Monocytes/100 WBC (Bld) 11.2 % Normal [facility] Comment on above: Order Comment: Speci men Type: BLOOD SPECIMENOrdering Facility: [facility] [place] Address: [address] [place] [address] Performed By: #### 5 7021-8 ####LOPEZ LABORATORYCLIA [id number] [place] [address] [place] Neutrophils (Bld) [#/Vol] 3.53 10*3/uL Normal 1.45-7.50 [facility] Comment on above: Order Comment: Speci men Type: BLOOD SPECIMENOrdering Facility: [facility] [place] Address: [address] [place] [address] Performed By: #### 5 7021-8 ####LOPEZ LABORATORYCLIA [id number] [place] [address] [place] Neutrophils/100 WBC (Bld) 53.6 % Normal [facility] Comment on above: Order Comment: Speci men Type: BLOOD SPECIMENOrdering Facility: [facility] [place] Address: [address] [place] [address] Performed By: #### 5 7021-8 ####LOPEZ LABORATORYCLIA [id number] [place] [address] [place] Nucleated RBC (Bld) [#/Vol] 10*3/uL Normal <0.01 [facility] Comment on above: Order Comment: Speci men Type: BLOOD SPECIMENOrdering Facility: [facility] [place] Address: [address] [place] [address] Performed By: #### 5 7021-8 ####LOPEZ LABORATORYCLIA [id number] [address] [place] Nucleated RBC/100 WBC (Bld) [Ratio] 0.0 /100 WBC Normal [facility] Comment on above: Order Comment: Speci men Type: BLOOD SPECIMENOrdering Facility: [facility] [place] Address: [address] [place] [address] Performed By: #### 5 7021-8 ####LOPEZ LABORATORYCLIA [id number] [place] [address] [place] Platelet mean volume (Bld) [Entitic vol] 10.6 fL Normal 9.0-12.7 [facility] Comment on above: Order Comment: Speci men Type: BLOOD SPECIMENOrdering Facility: [facility] [place] Address: [address] [place] [address] Performed By: #### 5 7021-8 ####LOPEZ LABORATORYCLIA [id number] [address] [id number] [place] [facility] [place] Platelets (Bld) [#/Vol] 206 10*3/uL Normal 150-400 [facility] Comment on above: Order Comment: Brian ramey Type: BLOOD SPECIMENOrdering Facility: [facility] [place] Address: [address] [place] [address] Performed By: #### 5 7021-8 ####LOPEZ LABORATORYCLIA [id number] [place] [address] [place] RBC (Bld) [#/Vol] 3.69 10*6/uL Low 3.90-5.20 [facility] Comment on above: Order Comment: Brian ramey Type: BLOOD SPECIMENOrdering Facility: [facility] [place] Address: [address] [place] [address] Performed By: #### 5 7021-8 ####SIPSEY LABORATORYCLIA [id number] [place] [address] [place] WBC (Bld) [#/Vol] 6.59 10*3/uL Normal 3.70-11.00 [facility] Comment on above: Order Comment: Brian ramey Type: BLOOD SPECIMENOrdering Facility: [facility] [place] Address: [address] [place] [address] Performed By: #### 5 7021-8 ####SIPSEY LABORATORYCLIA [id number] [address] [id number] [facility] CONSULTon 10-31-2022 CONSULT HNO ID: [id number] Author: Ariel Jean Baptiste MD Service: Neurology General Author Type: Physician Type: Consults Filed: 10/31/2022 8:44 AM Note Text: [facility] TeleNeurology Consult Note Patient seen using Tel[facility]rology [facility]. Recommendations are placed in the chart. Please review. For questions after hours, when teleneurologist is not available, for [facility]: Please Page [phone] for the [facility] from 12pm to 8Am Admitting Provider/Consulted by:Elana Garcia MD Time of Note:10/31/2022 Patient Name:Elena Galeano Admit Date:10/30/2022 Hospital Day:0 CC: left eye vision loss History of Present Illness: Elena Galeano is a 62 year old left handed female with a past medical history of CLL in remission, non-Hodgkin lymphoma status post chemotherapy in remission, paroxysmal A. fib not on anticoagulation, GERD, hypertension, dyslipidemia, PERCY noncompliant to CPAP, depression who presented to the ER on 10/30/2022 for evaluation of left eye vision loss. Time of onset/LKW 11Am yesterday morning when she suddenly lost left eye vision without pain. She went to the outside ED. Patient was subsequently transferred to an ticket taker who after examining her scented to the [place] ER for evaluation of central retinal artery occlusion versus stroke. Patient denied having any history of stroke in the past. No weakness in her arms or legs. In the ER the patient was found to have an elevated blood pressure at 224/104. CT head was unremarkable. CTA of the head and neck showed R ICA stenosis 30%, LICA stenosis 60%, moderate right-sided and mild left-sided vertebral arterial stenosis, moderate left distal and mild right distal ICA stenosis, proximal left P2 moderate stenosis.. Prior to Admission medications : Medication traZODone (DESYREL) 100 mg tablet, Sig Take 100 mg by mouth., Start Date 01/13/18, End Date , Taking? Yes, Authorizing Provider [facility] Provider Medication pantoprazole DR (PROTONIX) 40 mg tablet, Sig Take 40 mg by mouth., Start Date 08/20/22, End Date , Taking? Yes, Authorizing Provider [facility] Provider Medication buPROPion XL (WELLBUTRIN XL) 300 mg 24 hr tablet, Sig Take 300 mg by mouth., Start Date 01/12/21, End Date , Taking? Yes, Authorizing Provider [facility]cf Provider Medication escitalopram oxalate (LEXAPRO) 20 mg tablet, Sig Take 1 tablet by mouth once daily., Start Date 01/12/21, End Date , Taking? Yes, Authorizing Provider [facility]cf Provider Medication carvedilol (COREG) 12.5 mg tablet, Sig Take 12.5 mg by mouth., Start Date 11/18/20, End Date , Taking? Yes, Authorizing Provider [facility] Provider Medication Fenofibrate (LOFIBRA) 160 mg tablet, Sig Take 1 tablet by mouth once daily., Start Date 09/01/22, End Date , Taking? Yes, Authorizing Provider [facility] Provider Medication REPATHA SURECLICK 140 mg/mL pen injector, Sig Inject 1 mL under the skin every 14 days., Start Date 08/30/22, End Date , Taking? Yes, Authorizing Provider [facility]cf Provider Medication aspirin, enteric coated (ASPIRIN, ENTERIC COATED) 81 mg EC tablet, Sig Take 81 mg by mouth., Start Date , End Date , Taking? Yes, Authorizing Provider [facility]cf Provider Medication fenofibrate nanocrystallized (TRICOR) 145 mg tablet, Sig Take 1 tablet by mouth once daily., Start Date 11/16/16, End Date , Taking? Yes, Authorizing Provider Delilah Calderon Medication triamterene-hydrochlor othiazide 37.5-25 mg per tablet, Sig Take 1 tablet by mouth once daily., Start Date , End Date , Taking? Yes, Authorizing Provider Cc Provider Medication albuterol HFA (PROVENTIL HFA, VENTOLIN HFA) 90 mcg/actuation inhaler, Sig Inhale 2 Puffs as instructed every 6 hours as needed., Start Date 04/13/19, End Date , Taking? , Authorizing Provider Cc Provider Medication oxyCODONE-acetaminophe n (PERCOCET) 5-325 mg tablet, Sig Take 1 tablet by mouth every 6 hours as needed. Patient not taking: Reported on 09/28/2022, Start Date 06/18/21, End Date , Taking? , Authorizing Provider León Sylvester MD Medication diclofenac, EC, (VOLTAREN) 75 mg EC tablet, Sig Take 1 tablet by mouth twice daily. Patient not taking: Reported on 09/28/2022, Start Date 02/24/21, End Date , Taking? , Authorizing Provider León Sylvester MD Medication amoxicillin (POLYMOX, AMOXIL) 500 mg capsule, Sig Please take 4 capsules by mouth 1 (one) hour prior to your dental appointment. Patient not taking: Reported on 09/28/2022, Start Date 05/16/20, End Date , Taking? , Authorizing Provider Sean Pablo APRN.RESIDENTIAL CARE OFFICER Medication meloxicam (MOBIC) 15 mg tablet, Sig Take 1 tablet by mouth once daily. Patient not taking: Reported on 09/28/2022, Start Date 04/11/20, End Date , Taking? , Authorizing Provider León Sylvester MD Medication rosuvastatin (CRESTOR) 40 mg tablet, Sig Take 1 tablet by mouth once daily. Patient not taking: Reported on 09/28/2022, Start Date 02/04/17, End Date , Taking? , Authorizing Provider Delilah Calderon Medication acebutolol (SE (more content not included)... Normal [facility] Comprehensive metabolic 2000 panelon 10-31-2022 Albumin [Mass/Vol] 3.6 g/dL Low 3.9-4.9 [facility] Comment on above: Order Comment: Speci men Type: BLOOD SPECIMENOrdering Facility: [facility] [place] Address: [address] [place] [address] Performed By: #### 2 4323-8 ####LOPEZ LABORATORYCLIA [id number] [address] STATES OF [facility] ALP [Catalytic activity/Vol] 49 U/L Normal 34-123 [facility] Comment on above: Order Comment: Speci men Type: BLOOD SPECIMENOrdering Facility: [facility] [place] Address: [address] [place] [address] Performed By: #### 2 4323-8 ####LOPEZ LABORATORYCLIA [id number] [address] STATES [facility] ALT [Catalytic activity/Vol] 25 U/L Normal 7-38 [facility] Comment on above: Order Comment: Speci men Type: BLOOD SPECIMENOrdering Facility: [facility] [place] Address: [address] [address] Performed By: #### 2 4323-8 ####LOPEZ LABORATORYCLIA [id number] [address] STATES [facility] Anion gap [Moles/Vol] 10 mmol/L Normal 9-18 [facility] Comment on above: Order Comment: Speci men Type: BLOOD SPECIMENOrdering Facility: [facility] [place] Address: [address] [address] Performed By: #### 2 4323-8 ####LOPEZ LABORATORYCLIA [id number] [place] [address] [place] AST [Catalytic activity/Vol] 30 U/L Normal 13-35 [facility] Comment on above: Order Comment: Speci men Type: BLOOD SPECIMENOrdering Facility: [facility] [place] Address: [address] [place] [address] Performed By: #### 2 4323-8 ####LOPEZ LABORATORYCLIA [id number] [place] [address] [place] Bilirubin [Mass/Vol] 0.4 mg/dL Normal 0.2-1.3 [facility] Comment on above: Order Comment: Speci men Type: BLOOD SPECIMENOrdering Facility: [facility] [place] Address: [address] [place] [address] Performed By: #### 2 4323-8 ####LOPEZ LABORATORYCLIA [id number] [place] [address] [place] Calcium [Mass/Vol] 9.3 mg/dL Normal 8.5-10.2 [facility] Comment on above: Order Comment: Speci men Type: BLOOD SPECIMENOrdering Facility: [facility] [place] Address: [address] [place] [address] Performed By: #### 2 4323-8 ####LOPEZ LABORATORYCLIA [id number] [place] [address] [place] Chloride [Moles/Vol] 101 mmol/L Normal 97-105 [facility] Comment on above: Order Comment: Speci men Type: BLOOD SPECIMENOrdering Facility: [facility] [place] Address: [address] [place] [address] Performed By: #### 2 4323-8 ####LOPEZ LABORATORYCLIA [id number] [place] [address] [place] CO2 [Moles/Vol] 30 mmol/L Normal 22-30 [facility] Comment on above: Order Comment: Speci men Type: BLOOD SPECIMENOrdering Facility: [facility] [place] Address: [address] [place] [address] Performed By: #### 2 4323-8 ####LOPEZ LABORATORYCLIA [id number] [address] [place] Creatinine [Mass/Vol] 0.85 mg/dL Normal 0.58-0.96 [facility] Comment on above: Order Comment: Brian ramey Type: BLOOD SPECIMENOrdering Facility: [facility] [place] Address: [address] [facility] [place] [address] Performed By: #### 2 4323-8 ####SIPSEY LABORATORYCLIA [id number] [address] ESTIMATED GLOMERULAR FILTRATION RATE 77 mL/min/1.73m??? Normal >=60 [facility] Comment on above: Order Comment: Brian ramey Type: BLOOD SPECIMENOrdering Facility: [facility] [place] Address: [address] [place] [address] Result Comment: Nay mated Glomerular Filtration Rate (eGFR) is calculated using the 2020 CKD-EPI creatinine equation. This equation utilizes serum creatinine, sex, and age as parameters. The creatinine assay has traceable calibration to isotope dilution-mass spectrometry. Refer to KDIGO guidelines for clinical interpretation. In patients with unstable renal function, e.g. those with acute kidney injury, the eGFR may not accurately reflect actual GFR. Performed By: #### 2 4323-8 ####LOPEZ LABORATORYCLIA [id number] [address] [place] Glucose [Mass/Vol] 133 mg/dL High 74-99 [facility] Comment on above: Order Comment: Brian karoline Type: BLOOD SPECIMENOrdering Facility: [facility] [place] Address: [address] [place] [address] Result Comment: The [place] [employer] (ADA) provides guidance for cutoff values for fasting glucose and random glucose. The ADA defines fasting as no caloric intake for at least 8 hours. Fasting plasma glucose results between 100 to 125 mg/dL indicate increased risk for diabetes (prediabetes). Fasting plasma glucose results greater than or equal to 126 mg/dL meet the criteria for diagnosis of diabetes. In the absence of unequivocal hyperglycemia, results should be confirmed by repeat testing. In a patient with classic symptoms of hyperglycemia or hyperglycemic crisis, random plasma glucose results greater than or equal to 200 mg/dL meet the criteria for diagnosis of diabetes. Reference: Standards of Medical Care in Diabetes 2016, [place] [employer]. Diabetes Care. 2016.39(Suppl 1). Performed By: #### 2 4323-8 ####LOPEZ LABORATORYCLIA [id number] [address] [place] Potassium [Moles/Vol] 3.6 mmol/L Low 3.7-5.1 [facility] Comment on above: Order Comment: Speci men Type: BLOOD SPECIMENOrdering Facility: [facility] [place] Address: [address] [place] [address] Performed By: #### 2 4323-8 ####LOPEZ LABORATORYCLIA [id number] [address] [place] Protein [Mass/Vol] 6.1 g/dL Low 6.3-8.0 [facility] Comment on above: Order Comment: Speci men Type: BLOOD SPECIMENOrdering Facility: [facility] [place] Address: [address] [place] [address] Performed By: #### 2 4323-8 ####LOPEZ LABORATORYCLIA [id number] [address] STATES [facility] Sodium [Moles/Vol] 141 mmol/L Normal 136-144 [facility] Comment on above: Order Comment: Speci men Type: BLOOD SPECIMENOrdering Facility: [facility] [place] Address: [address] [place] [address] Performed By: #### 2 4323-8 ####LOPEZ LABORATORYCLIA [id number] [address] [place] Urea nitrogen [Mass/Vol] 14 mg/dL Normal 7-21 [facility] Comment on above: Order Comment: Speci men Type: BLOOD SPECIMENOrdering Facility: [facility] [place] Address: [address] [place] [address] Performed By: #### 2 4323-8 ####LOPEZ LABORATORYCLIA [id number] [address] [place] HISTORY PHYSICALon HISTORY PHYSICAL HNO ID: [id number] Author: Elana Garcia MD Service: Hospital Medicine Author Type: Physician Type: HANDP Filed: 10/31/2022 12:30 AM Note Text: DEPARTMENT OF HOSPITAL MEDICINE HISTORY AND PHYSICAL EXAM SERVICE DATE: 10/31/2022 Code Status: Not on file SERVICE TIME: 12:30 AM Primary Care Physician: Fernie Paredes, DO NIGHT AND WEEKEND COVERAGE: SIPSEY COVERAGE: Days: [phone], please page attending physician. Nights: [phone], please page [place] [facility] Night coverage pager [phone]. Subjective CHIEF COMPLAINT: Left eye vision loss HPI: This is a 62 year old female with a past medical history of CLL in remission, non-Hodgkin lymphoma status post chemotherapy in remission, paroxysmal A. fib not on anticoagulation, GERD, hypertension, dyslipidemia, PERCY noncompliant to CPAP, depression who presented to the ER on 10/30/2022 for evaluation of left eye vision loss. Patient's symptoms started in the morning at around 11 AM for which she went to the outside ED. Patient was subsequently transferred to an ticket taker who after examining her scented to the [place] ER for evaluation of central retinal artery occlusion versus stroke. Patient denied having any history of stroke in the past. In the ER the patient was found to have an elevated blood pressure at 224/104. CBC, BMP, urinalysis were negative. EKG showed normal sinus rhythm. CT head was unremarkable. CT angiogram of the head and neck showed R ICA stenosis 30%, LICA stenosis 60%, moderate right-sided and mild left-sided vertebral arterial stenosis, moderate left distal and mild right distal ICA stenosis, proximal left P2 moderate stenosis. Neurology did not recommend any intervention and recommended evaluation for stroke with MRI. PAST MEDICAL HISTORY Diagnosis Date Anxiety Depression Hypertension Lymphoma (HCC) 10/2010 Right knee pain 06/12/2014 PAST SURGICAL HISTORY Procedure Laterality Date ANESTH OPEN/SURG ARTHRS TOTAL KNEE ARTHROPLASTY 05/19/2015 right TKA APPENDECTOMY ARTHROSCOPY KNEE SUBCHONDROPLAST 10/11/2014 right knee medial menisectomy AND femoral tibial subchondroplasty COLONOSCOPY FLX DX W/COLLJ SPEC WHEN PFRMD 05/31/13 Colonoscopy EGD 2013 PAST SURGICAL HISTORY OF left ovary and fallopian tube removed for a benign cyst, done in her 20's PAST SURGICAL HISTORY OF Pilonidal cyst removed PAST SURGICAL HISTORY OF 01/2013 port a cath, left , 2011 with revision in 2012 TONSILLECTOMY PRIMARY/SECONDARY Tonsillectomy FAMILY HISTORY Problem Relation Age of Onset None Mother None Father None Sister X 3 None Brother X 2 Social History Tobacco Use Smoking status: Former Packs/day: 0.50 Years: 30.00 Pack years: 15.00 Types: Cigarettes Quit date: 01/22/2013 Years since quittin.7 Smokeless tobacco: Never Vaping Use Vaping Use: Never used Substance Use Topics Alcohol use: No Drug use: No PRIOR TO ADMISSION MEDICATIONS: traZODone (DESYREL) 100 mg tablet, Take 100 mg by mouth., Disp: , Rfl: , 10/29/[address] (PROTONIX) 40 mg tablet, Take 40 mg by mouth., Disp: , Rfl: , 10/30/2022 at 0900 buPROPion XL (WELLBUTRIN XL) 300 mg 24 hr tablet, Take 300 mg by mouth., Disp: , Rfl: , 10/30/2022 escitalopram oxalate (LEXAPRO) 20 mg tablet, Take 1 tablet by mouth once daily., Disp: , Rfl: , 10/30/2022 at 0900 carvedilol (COREG) 12.5 mg tablet, Take 12.5 mg by mouth., Disp: , Rfl: , 10/30/2022 Fenofibrate (LOFIBRA) 160 mg tablet, Take 1 tablet by mouth once daily., Disp: , Rfl: , 10/30/2022 at 0900 REPATHA SURECLICK 140 mg/mL pen injector, Inject 1 mL under the skin every 14 days., Disp: , Rfl: , 10/22/2022 aspirin, enteric coated (ASPIRIN, ENTERIC COATED) 81 mg EC tablet, Take 81 mg by mouth., Disp: , Rfl: , 10/30/2022 fenofibrate nanocrystallized (TRICOR) 145 mg tablet, Take 1 tablet by mouth once daily., Disp: 90 tablet, Rfl: 3, 10/29/2022 triamterene-hydrochlor othiazide 37.5-25 mg per tablet, Take 1 tablet by mouth once daily., Disp: , Rfl: , 10/30/2022 at 0900 albuterol HFA (PROVENTIL HFA, VENTOLIN HFA) 90 mcg/actuation inhaler, Inhale 2 Puffs as instructed every 6 hours as needed., Disp: , Rfl: oxyCODONE-acetaminophe n (PERCOCET) 5-325 mg tablet, Take 1 tablet by mouth every 6 hours as needed. (Patient not taking: Reported on 09/28/2022), Disp: 20 tablet, Rfl: 0 diclofenac, EC, (VOLTAREN) 75 mg EC tablet, Take 1 tablet by mouth twice daily. (Patient not taking: Reported on 09/28/2022), Disp: 90 tablet, Rfl: 0 amoxicillin (POLYMOX, AMOXIL) 500 mg capsule, Please take 4 capsules by mouth 1 (one) hour prior to your dental appointment. (Patient not taking: Reported on 09/28/2022), Disp: 4 capsule, Rfl: 3 meloxicam (MOBIC) 15 mg tablet, Take 1 tablet by mouth once daily. (Patient not taking: Reported on 09/28/2022), Disp: 30 tablet, Rfl: 1 rosuvastatin (CRESTOR) 40 mg tablet, Take 1 tablet by mouth once daily. (Patient not taking: Reported on 09/28/2022), Disp: 9 (more content not included)... [facility] THERAPY NTon 10-31-2022 THERAPY NT HNO ID: [id number] Author: Gaby Quick PT Service: Physical Therapy Author Type: Physical Therapist Type: Therapy (PT/OT/Speech/Resp) Filed: 10/31/2022 9:18 AM Note Text: PHYSICAL THERAPY MISSED VISIT SERVICE DATE: 10/31/2022 SERVICE TIME: 915 to 915 ROOM: [place] [address] Patient not seen due to Hold: Clinical Appropriateness. Pt with 24 hour bedrest orders starting 10/31 @ 0030. Most recent BP 216/106. Will re-attempt once bedrest orders are discontinued. SIGNATURE: Gaby Quick PT PATIENT NAME: Elena Galeano DATE: October 31, 2022 TIME: 9:16 AM [facility] US CAROTID BILon 10-31-2022 US CAROTID JAILENE * * *Final Report* * * DATE OF EXAM: Oct 31 2022 9:24AM MADELAINE 1077 - CAROTID JAILENE / PROCEDURE REASON: Carotid artery stenosis * * * * Physician Interpretation * * * * CLINICAL INDICATION: Carotid artery stenosis COMPARISON: None TECHNIQUE: Real-time imaging of the neck vasculature was performed using ultrasound. RIGHT CAROTID RESULTS: Mild to moderate plaque in the carotid bulb and proximal ICA The maximum peak systolic velocity measurements are as follows: Mid common carotid artery 76 cm per second. Internal carotid artery 105 cm per second. External carotid artery 141 cm per second. Peak internal/mid common systolic ratio 1.4 . The right vertebral artery has anterograde flow. LEFT CAROTID RESULTS: Mild plaque in the carotid bulb and proximal ICA and ECA. The maximum peak systolic velocity measurements are as follows: Mid common carotid artery 98 cm per second. Internal carotid artery 112 cm per second. External carotid artery 75 cm per second. Peak internal/mid common systolic ratio 1.1 . The left vertebral artery has anterograde flow. IMPRESSION: 1. Bilateral plaque 2. Less than 30 % stenosis involving the right internal carotid artery by NASCET criteria. 3. Less than 30 % stenosis involving the left internal carotid artery by NASCET criteria. Business Controller: MALCOLM Transcribe Date/Time: Oct 31 2022 9:42A Dictated by : SKYLER ROY MD This examination was interpreted and the report reviewed and electronically signed by: SKYLER ROY MD on Oct 31 2022 9:44AM EST [id number] [facility] XR CHEST 1V FRONTAL PORTon 0 10-31-2022 XR CHEST 1V FRONTAL PORT * * *Final Report* * * DATE OF EXAM: Oct 31 2022 2:10AM MDX [id number] - XR CHEST 1V FRONTAL PORT / PROCEDURE REASON: Shortness of breath * * * * Physician Interpretation * * * * EXAMINATION: CHEST RADIOGRAPH (PORTABLE SINGLE VIEW AP) Exam Date/Time: 10/31/2022 2:10 AM CLINICAL HISTORY: Shortness of breath MQ: XCPR_5 Comparison: 12/03/2012 RESULT: Lines, tubes, and devices: None. Lungs and pleura: Emphysematous changes are noted. There is no focal infiltrate or effusion. There is no pneumothorax. Cardiomediastinal silhouette: Stable cardiomediastinal silhouette. Other: None. IMPRESSION: No acute intrathoracic findings. Chronic obstructive pulmonary disease. Business Controller: MALCOLM Transcribe Date/Time: Oct 31 2022 2:11A Dictated by : KAN PORRAS MD This examination was interpreted and the report reviewed and electronically signed by: KAN PORRAS MD on Oct 31 2022 2:13AM EST [id number] [facility] ALLIED HEALTHon 10-30-2022 ALLIED HEALTH HNO ID: [id number] Author: MARIBETH Stanton Service: Radiology Author Type: Technologist Type: Allied Health Filed: 10/30/2022 3:25 PM Note Text: Radiology Service Progress Note DATE OF SERVICE: October 30, 2022 TIME: 3:24 PM PATIENT IDENTITY VERIFICATION COMPLETED USING TWO (2) STANDARD IDENTIFIERS: Name and Date of confirmed by patient verbally and Name and Date of confirmed by identification band. FALL SCREENING: Has the patient had 2 falls in the last year or 1 fall with injury or currently using an Ambulatory Assistive Device (Walker, Cane, Wheelchair, Crutches, etc.)? Emergency Room Patient: Screened in ED PATIENT GENDER DATA: Female. status: : No status: NO. PATIENT RELEVANT IMPLANT DATA REVIEWED: Yes ALLERGIES: Reviewed and unchanged CONTRAST ALLERGY: NO. EXAM: CT -CONTRAST INDUCED NEPHROPATHY RISK FACTORS: Patient age > 60 years CREATININE: Creatinine Date Value Ref Range Status 05/02/2015 0.80 0.70 - 1.40 mg/dL Final 09/30/2014 0.91 0.70 - 1.40 mg/dL Final 08/07/2014 0.65 (L) 0.70 - 1.40 mg/dL Final eGFR-All Other Races Date Value Ref Range Status 05/02/2015 >60 . Final Comment: eGFR (Estimated GFR) Units of measure: mL/min/1.73 meters squared eGFR is derived from the reexpressed MDRD Study equation using the following parameters: serum creatinine, age, gender and race. The creatinine assay has been calibrated to be traceable to IDMS. An eGFR <60 mL/min/1.73m2 for >3 months is consistent with chronic kidney disease. Refer to KDOQI guidelines for clinical interpretation. In patients with unstable renal function, e.g. those with acute kidney injury, the eGFR may not accurately reflect actual GFR. eGFR- Date Value Ref Range Status 09/30/2014 >60 Final P.O.C.T. RESULTS: POC done: Yes, See Lab Tab October 30, 2022 TREATMENT: N/A PERIPHERAL IV DATA: Inpatient - refer to LDA documentation RADIOLOGY DEPARTMENT: CT; Exam(s) Completed: Brain and CTA Neck SIGNATURE: MARIBETH Stanton PATIENT NAME: Elena Galeano DATE: October 30, 2022 TIME: 3:24 PM Normal [facility] Basic metabolic 2000 panelon 10-30-2022 Anion gap [Moles/Vol] 9 mmol/L Normal 9-18 [facility] Comment on above: Order Comment: Speci men Type: BLOOD SPECIMENOrdering Facility: [facility] [place] Address: [address] [place] [address] Performed By: #### 1 988-5, 67293-5 ####LOPE[facility] LABORATORYCLIA [id number] [place] [address] [place] Calcium [Mass/Vol] 9.7 mg/dL Normal 8.5-10.2 [facility] Comment on above: Order Comment: Speci men Type: BLOOD SPECIMENOrdering Facility: [facility] [place] Address: [address] [place] [address] Performed By: #### 1 988-5, 53674-3 ####LOPEZ LABORATORYCLIA [id number] [place] [address] [place] Chloride [Moles/Vol] 100 mmol/L Normal 97-105 [facility] Comment on above: Order Comment: Speci men Type: BLOOD SPECIMENOrdering Facility: [facility] [place] Address: [address] [place] [address] Performed By: #### 1 988-5, 51685-5 ####LOPE[facility] LABORATORYCLIA [id number] [place] [address] [place] CO2 [Moles/Vol] 32 mmol/L High 22-30 [facility] Comment on above: Order Comment: Speci men Type: BLOOD SPECIMENOrdering Facility: [facility] [place] Address: [address] [place] [address] Performed By: #### 1 988-5, 48335-6 ####LOPEZ LABORATORYCLIA [id number] [place] [address] [place] Creatinine [Mass/Vol] 0.77 mg/dL Normal 0.58-0.96 [facility] Comment on above: Order Comment: Speci men Type: BLOOD SPECIMENOrdering Facility: [facility] [place] Address: [address] [place] [address] Performed By: #### 1 988-5, 98153-8 ####LOPEZ LABORATORYCLIA [id number] [address] ESTIMATED GLOMERULAR FILTRATION RATE 86 mL/min/1.73m??? Normal >=60 [facility] Comment on above: Order Comment: Brian ramey Type: BLOOD SPECIMENOrdering Facility: [facility] [place] Address: [place] [address] Result Comment: Nay mated Glomerular Filtration Rate (eGFR) is calculated using the 2020 CKD-EPI creatinine equation. This equation utilizes serum creatinine, sex, and age as parameters. The creatinine assay has traceable calibration to isotope dilution-mass spectrometry. Refer to KDIGO guidelines for clinical interpretation. In patients with unstable renal function, e.g. those with acute kidney injury, the eGFR may not accurately reflect actual GFR. Performed By: #### 1 988-5, 75486-2 ####LOPEZ LABORATORYCLIA [id number] [address] [place] Glucose [Mass/Vol] 96 mg/dL Normal 74-99 [facility] Comment on above: Order Comment: Brian ramey Type: BLOOD SPECIMENOrdering Facility: [facility] [place] Address: [address] [place] [address] Result Comment: The [place] Diabetes Association (ADA) provides guidance for cutoff values for fasting glucose and random glucose. The ADA defines fasting as no caloric intake for at least 8 hours. Fasting plasma glucose results between 100 to 125 mg/dL indicate increased risk for diabetes (prediabetes). Fasting plasma glucose results greater than or equal to 126 mg/dL meet the criteria for diagnosis of diabetes. In the absence of unequivocal hyperglycemia, results should be confirmed by repeat testing. In a patient with classic symptoms of hyperglycemia or hyperglycemic crisis, random plasma glucose results greater than or equal to 200 mg/dL meet the criteria for diagnosis of diabetes. Reference: Standards of Medical Care in Diabetes 2016, [place] [employer] Association. Diabetes Care. 2016.39(Suppl 1). Performed By: #### 1 988-5, 13975-7 ####LOPEZ LABORATORYCLIA [id number] [address] [place] Potassium [Moles/Vol] 4.5 mmol/L Normal 3.7-5.1 [facility] Comment on above: Order Comment: Speci men Type: BLOOD SPECIMENOrdering Facility: [facility] [place] Address: [address] [place] [address] Performed By: #### 1 988-5, 29115-8 ####LOPEZ LABORATORYCLIA [id number] [address] STATES [facility] Sodium [Moles/Vol] 141 mmol/L Normal 136-144 [facility] Comment on above: Order Comment: Speci men Type: BLOOD SPECIMENOrdering Facility: [facility] [place] Address: [address] [place] [address] Performed By: #### 1 988-5, 62492-5 ####LOPEZ LABORATORYCLIA [id number] [address] STATES [facility] Urea nitrogen [Mass/Vol] 11 mg/dL Normal 7-21 [facility] Comment on above: Order Comment: Speci men Type: BLOOD SPECIMENOrdering Facility: [facility] [place] Address: [address] [place] [address] Performed By: #### 1 988-5, 48542-2 ####LOPEZ LABORATORYCLIA [id number] [address] [place] CBC W Auto Differential pane l (Bld)on 10-30-2022 Basophils (Bld) [#/Vol] 0.04 10*3/uL Normal <0.11 [facility] Comment on above: Order Comment: Speci men Type: BLOOD SPECIMENOrdering Facility: [facility] [place] Address: [address] [place] [address] Performed By: #### 5 7021-8 ####LOPEZ LABORATORYCLIA [id number] [address] Basophils/100 WBC (Bld) 0.6 % Normal [facility] Comment on above: Order Comment: Speci men Type: BLOOD SPECIMENOrdering Facility: [facility] [place] Address: [address] [place] [address] Performed By: #### 5 7021-8 ####LOPEZ LABORATORYCLIA [id number] [address] Differential cell count method Nom (Bld) Auto Normal [facility] Comment on above: Order Comment: Speci men Type: BLOOD SPECIMENOrdering Facility: [facility] [place] Address: [address] [place] [address] Performed By: #### 5 7021-8 ####LOPEZ LABORATORYCLIA [id number] [place] [address] [place] Eosinophils (Bld) [#/Vol] 0.03 10*3/uL Normal <0.46 [facility] Comment on above: Order Comment: Speci men Type: BLOOD SPECIMENOrdering Facility: [facility] [place] Address: [address] [place] [address] Performed By: #### 5 7021-8 ####LOPEZ LABORATORYCLIA [id number] [address] STATES [facility] Eosinophils/100 WBC (Bld) 0.4 % Normal [facility] Comment on above: Order Comment: Speci men Type: BLOOD SPECIMENOrdering Facility: [facility] [place] Address: [address] [place] [address] Performed By: #### 5 7021-8 ####LOPEZ LABORATORYCLIA [id number] [address] Erythrocyte distribution width (RBC) [Ratio] 12.7 % Normal 11.5-15.0 [facility] Comment on above: Order Comment: Speci men Type: BLOOD SPECIMENOrdering Facility: [facility] [place] Address: [address] [place] [address] Performed By: #### 5 7021-8 ####LOPEZ LABORATORYCLIA [id number] [address] Hematocrit (Bld) [Volume fraction] 39.9 % Normal 36.0-46.0 [facility] Comment on above: Order Comment: Speci men Type: BLOOD SPECIMENOrdering Facility: [facility] [place] Address: [address] [place] [address] Performed By: #### 5 7021-8 ####LOPEZ LABORATORYCLIA [id number] [address] [place] Hemoglobin (Bld) [Mass/Vol] 13.4 g/dL Normal 11.5-15.5 [facility] Comment on above: Order Comment: Speci men Type: BLOOD SPECIMENOrdering Facility: [facility] [place] Address: [address] [place] [address] Performed By: #### 5 7021-8 ####LOPEZ LABORATORYCLIA [id number] [place] [address] [place] Immature granulocytes (Bld) [#/Vol] 10*3/uL Normal <0.10 [facility] Comment on above: Order Comment: Speci men Type: BLOOD SPECIMENOrdering Facility: [facility] [place] Address: [address] [place] [address] Performed By: #### 5 7021-8 ####LOPEZ LABORATORYCLIA [id number] [address] [place] Immature granulocytes/100 WBC (Bld) 0.1 % Normal [facility] Comment on above: Order Comment: Speci men Type: BLOOD SPECIMENOrdering Facility: [facility] [place] Address: [address] [place] [address] Performed By: #### 5 7021-8 ####LOPEZ LABORATORYCLIA [id number] [place] [address] [place] Lymphocytes (Bld) [#/Vol] 2.40 10*3/uL Normal 1.00-4.00 [facility] Comment on above: Order Comment: Speci men Type: BLOOD SPECIMENOrdering Facility: [facility] [place] Address: [address] [place] [address] Performed By: #### 5 7021-8 ####LOPEZ LABORATORYCLIA [id number] [address] [place] Lymphocytes/100 WBC (Bld) 33.4 % Normal [facility] Comment on above: Order Comment: Speci men Type: BLOOD SPECIMENOrdering Facility: [facility] [place] Address: [address] [place] [address] Performed By: #### 5 7021-8 ####LOPEZ LABORATORYCLIA [id number] [address] MCH (RBC) [Entitic mass] 32.6 pg Normal 26.0-34.0 [facility] Comment on above: Order Comment: Speci men Type: BLOOD SPECIMENOrdering Facility: [facility] [place] Address: [address] [place] [address] Performed By: #### 5 7021-8 ####LOPEZ LABORATORYCLIA [id number] [address] [place] MCHC (RBC) [Mass/Vol] 33.6 g/dL Normal 30.5-36.0 [facility] Comment on above: Order Comment: Speci men Type: BLOOD SPECIMENOrdering Facility: [facility] [place] Address: [address] [place] [address] Performed By: #### 5 7021-8 ####LOPEZ LABORATORYCLIA [id number] [address] [place] [facility] MCV (RBC) [Entitic vol] 97.1 fL Normal 80.0-100.0 [facility] Comment on above: Order Comment: Speci men Type: BLOOD SPECIMENOrdering Facility: [facility] [place] Address: [address] [place] [address] Performed By: #### 5 7021-8 ####LOPEZ LABORATORYCLIA [id number] [address] [place] Monocytes (Bld) [#/Vol] 0.59 10*3/uL Normal <0.87 [facility] Comment on above: Order Comment: Speci men Type: BLOOD SPECIMENOrdering Facility: [facility] [place] Address: [address] [place] [address] Performed By: #### 5 7021-8 ####LOPEZ LABORATORYCLIA [id number] [address] Monocytes/100 WBC (Bld) 8.2 % Normal [facility] Comment on above: Order Comment: Speci men Type: BLOOD SPECIMENOrdering Facility: [facility] [place] Address: [address] [place] [address] Performed By: #### 5 7021-8 ####LOPEZ LABORATORYCLIA [id number] [address] [place] Neutrophils (Bld) [#/Vol] 4.12 10*3/uL Normal 1.45-7.50 [facility] Comment on above: Order Comment: Speci men Type: BLOOD SPECIMENOrdering Facility: [facility] [place] Address: [address] [place] [address] Performed By: #### 5 7021-8 ####LOPEZ LABORATORYCLIA [id number] [address] Neutrophils/100 WBC (Bld) 57.3 % Normal [facility] Comment on above: Order Comment: Speci men Type: BLOOD SPECIMENOrdering Facility: [facility] [place] Address: [address] [place] [address] Performed By: #### 5 7021-8 ####LOPEZ LABORATORYCLIA [id number] [place] [address] [place] Nucleated RBC (Bld) [#/Vol] 10*3/uL Normal <0.01 [facility] Comment on above: Order Comment: Speci men Type: BLOOD SPECIMENOrdering Facility: [facility] [place] Address: [address] [place] [address] Performed By: #### 5 7021-8 ####LOPEZ LABORATORYCLIA [id number] [address] [place] Nucleated RBC/100 WBC (Bld) [Ratio] 0.0 /100 WBC Normal [facility] Comment on above: Order Comment: Speci men Type: BLOOD SPECIMENOrdering Facility: [facility] [place] Address: [address] [place] [address] Performed By: #### 5 7021-8 ####LOPEZ LABORATORYCLIA [id number] [address] [place] Platelet mean volume (Bld) [Entitic vol] 9.8 fL Normal 9.0-12.7 [facility] Comment on above: Order Comment: Speci men Type: BLOOD SPECIMENOrdering Facility: [facility] [place] Address: [address] [place] [address] Performed By: #### 5 7021-8 ####[facility] LABORATORYCLIA [id number] [address] [place] Platelets (Bld) [#/Vol] 220 10*3/uL Normal 150-400 [facility] Comment on above: Order Comment: Speci men Type: BLOOD SPECIMENOrdering Facility: [facility] [place] Address: [address] [address] Performed By: #### 5 7021-8 ####LOPE[facility] LABORATORYCLIA [id number] [place] [address] [place] RBC (Bld) [#/Vol] 4.11 10*6/uL Normal 3.90-5.20 [facility] Comment on above: Order Comment: Speci men Type: BLOOD SPECIMENOrdering Facility: [facility] [place] Address: [address] [place] [address] Performed By: #### 5 7021-8 ####L[facility] LABORATORYCLIA [id number] [address] OF [place] WBC (Bld) [#/Vol] 7.19 10*3/uL Normal 3.70-11.00 [facility] Comment on above: Order Comment: Speci men Type: BLOOD SPECIMENOrdering Facility: [facility] [place] Address: [address] [place], [place] [address] Performed By: #### 5 7021-8 ####LOPE[facility] LABORATORYCLIA [id number] [address] OF [place] CRP SerPl-mCncon 10-30-2022 CRP [Mass/Vol] 0.4 mg/dL Normal <0.9 [facility] Comment on above: Order Comment: Speci men Type: BLOOD SPECIMENOrdering Facility: [facility] [place] Address: [address] [place] [address] Performed By: #### 1 988-5, 65346-6 ####LOPEZ LABORATORYCLIA [id number] [place] [address] [place] CT BRAIN ATTACK WO IVCONon 0 10-30-2022 CT BRAIN ATTACK WO IVCON * * *Final Report* * * DATE OF EXAM: Oct 30 2022 3:22PM [facility] [place] [place] BRAIN [place] WO IVCON / PROCEDURE REASON: Focal neuro deficit, new, fixed, or worsening, < 4.5 hours, stroke suspected * * * * Physician Interpretation * * * * CLINICAL HISTORY: Brain attack. TECHNIQUE: Head CT without contrast. MQ: CTBA_4 CT Dose-Length Product (DLP): 778 mGy*cm CT Dose Reduction Employed: No dose reduction techniques were required COMPARISON: None.. RESULT: No CT evidence for acute transcortical infarct or hemorrhage or dense vessel sign is identified but if there is high clinical concern for acute intracranial abnormality then MRI may be of value if clinically indicated. Age expected sulci, gyri, ventricular system, CSF spaces, brain and multani-white distinction with mild senescent chronic microvascular ischemia and lacunar infarcts. Acute ischemic change: None. ASPECT Score = 10 Hemorrhage: No evidence of acute intracranial hemorrhage. ECASS Hemorrhagic Transformation Score = Not Applicable Mass Effect: There is no evidence of an intracranial mass or extraaxial fluid collection. Bones, orbits, sinuses, mastoids and skull base is symmetrical. IMPRESSION: No CT evidence for acute transcortical infarct or hemorrhage. CRITICAL TEST/RESULTS: Notification initiated at 3:[address] Gilberto MD; on 10/30/2022 at 3:17 PM. CR_1 Business Controller: MALCOLM Transcribe Date/Time: Oct 30 2022 3:23P Dictated by : RAMÍREZ MATTHEWS MD This examination was interpreted and the report reviewed and electronically signed by: RAMÍREZ MATTHEWS MD on Oct 30 2022 3:26PM EST [id number] CRITICAL!! Invalid Interpretation Code [facility] CTA HEAD W IVCONon 3 CTA HEAD W IVCON * * *Final Report* * * DATE OF EXAM: Oct 30 2022 3:30PM [facility] [place] - CTA HEAD W IVCON / PROCEDURE REASON: Focal neuro deficit, new, fixed, or worsening, < 4.5 hours, stroke suspected * * * * Physician Interpretation * * * * EXAMINATION: CTA NECK W IVCON, CTA HEAD W IVCON HISTORY: Neuro deficit, acute, stroke suspected TECHNIQUE: Spiral high resolution axial images were obtained through the head, neck and superior mediastinum following bolus administration of intravenous contrast for CT angiography. 3D maximum intensity projection images were created, reviewed and archived . MQ: CTAHN_4 Contrast: 80 mL Omnipaque [address] Radiation dose: Integrated Dose-Length Product (DLP) for this visit = 668 mGy*cm. CT Dose Reduction Employed: Automated exposure control(AEC) and iterative recon COMPARISON: None. RESULT: BRAIN: Evaluation of the individual slices of the CTA demonstrates no evidence of an acute stroke. ASPECT Score = 10 Hemorrhage: No evidence of acute intracranial hemorrhage. ECASS hemorrhagic transformation score: Not Applicable Spot Sign Presence: Not Applicable Spot Sign Number: Not Applicable NECK: Soft tissues: The soft tissue planes are maintained throughout. No evidence of a soft tissue mass in the neck or superior mediastinum. No significant lymphadenopathy is seen. Spine: Grade 1 degenerative anterolisthesis of C3 on C4. Moderate degenerative changes are present. Lung apices: The visualized lung apices are clear. CT ARTERIOGRAM: Extracranial Circulation: Aortic Arch: Common origin of the right brachiocephalic artery and the left common carotid artery. There is no significant stenosis in the proximal brachiocephalic vessels. Carotid Stenosis: Right Common: Short segment, calcific atherosclerotic plaque present in the distal CCA with extension into the left ICA. Right Internal Carotid Plaque: Predominantly calcific eccentric short segment plaque at the dorsal margin of the proximal ICA resulting in mild stenosis. Right Internal Carotid Stenosis (% by NASCET Criteria): 30% Left Common: Short segment, predominantly calcific atherosclerotic plaque present in the distal CCA extending into the proximal ICA. Left Internal Carotid Plaque: Short segment, nearly circumferential predominantly calcific atherosclerotic plaque present in the proximal ICA, moderate stenosis. Left Internal Carotid Stenosis (% by NASCET Criteria): 60% Cervical Vertebral Arteries: Patency: Bilateral Dominance: Codominant Eccentric predominantly calcific atherosclerotic plaque present in the origin of the right vertebral artery resulting in moderate focal stenosis. Predominantly calcific atherosclerotic plaque present in the origin of the left vertebral artery, resulting in mild focal stenosis. Intracranial Circulation: Anterior Circulation: Multifocal calcific atherosclerotic plaques are present in the bilateral carotid siphon resulting mild right and moderate left stenosis. The A1 segments are codominant. The ACAs are patent bilaterally. The MCAs are patent bilaterally. Vertebrobasilar Circulation: The left intradural vertebral artery is mildly more dominant. Bilateral intradural vertebral arteries are patent. The basilar artery is patent. There is moderate focal stenosis in the proximal segment of the left P2 segment. Mild focal stenosis in the distal left P2 segment. The right BINDING BENCH WORKER is patent. Bilateral SCA, AICA, and PICA are patent. Arachnoid granulations present in the bilateral transverse venous sinuses, greater on the right than the left. Visualized dural venous sinuses are patent. Technical Services Consultant (topogram) images: No additional findings. IMPRESSION: No acute intracranial process. Mild right ICA stenosis, 30% and Moderate left ICA stenosis 60% by NASCET criteria. Moderate right and mild left vertebral artery stenosis at origin. Moderate left distal ICA and mild right distal ICA stenosis. Moderate focal stenosis of the proximal left P2 segment. Arterial blood flow was measured to detect acute large vessel occlusion by computer aided detection software: None. Concordance between software and imaging review: Concordant. Business Controller: MALCOLM Transcribe Date/Time: Oct 30 2022 3:36P Dictated by : ALEM PAGAN DO This examination was interpreted and the report reviewed and electronically signed by: RAMÍREZ MATTHEWS MD on Oct 30 2022 4:10PM EST [id number] [facility] CTA NECK W IVCONon 3 CTA NECK W IVCON * * *Final Report* * * DATE OF EXAM: Oct 30 2022 3:30PM [facility] [place] CTA NECK W IVCON / PROCEDURE REASON: Neuro deficit, acute, stroke suspected * * * * Physician Interpretation * * * * EXAMINATION: CTA NECK W IVCON, CTA HEAD W IVCON HISTORY: Neuro deficit, acute, stroke suspected TECHNIQUE: Spiral high resolution axial images were obtained through the head, neck and superior mediastinum following bolus administration of intravenous contrast for CT angiography. 3D maximum intensity projection images were created, reviewed and archived . MQ: CTAHN_4 Contrast: 80 mL Omnipaque [address] Radiation dose: Integrated Dose-Length Product (DLP) for this visit = 668 mGy*cm. CT Dose Reduction Employed: Automated exposure control(AEC) and iterative recon COMPARISON: None. RESULT: BRAIN: Evaluation of the individual slices of the CTA demonstrates no evidence of an acute stroke. ASPECT Score = 10 Hemorrhage: No evidence of acute intracranial hemorrhage. ECASS hemorrhagic transformation score: Not Applicable Spot Sign Presence: Not Applicable Spot Sign Number: Not Applicable NECK: Soft tissues: The soft tissue planes are maintained throughout. No evidence of a soft tissue mass in the neck or superior mediastinum. No significant lymphadenopathy is seen. Spine: Grade 1 degenerative anterolisthesis of C3 on C4. Moderate degenerative changes are present. Lung apices: The visualized lung apices are clear. CT ARTERIOGRAM: Extracranial Circulation: Aortic Arch: Common origin of the right brachiocephalic artery and the left common carotid artery. There is no significant stenosis in the proximal brachiocephalic vessels. Carotid Stenosis: Right Common: Short segment, calcific atherosclerotic plaque present in the distal CCA with extension into the left ICA. Right Internal Carotid Plaque: Predominantly calcific eccentric short segment plaque at the dorsal margin of the proximal ICA resulting in mild stenosis. Right Internal Carotid Stenosis (% by NASCET Criteria): 30% Left Common: Short segment, predominantly calcific atherosclerotic plaque present in the distal CCA extending into the proximal ICA. Left Internal Carotid Plaque: Short segment, nearly circumferential predominantly calcific atherosclerotic plaque present in the proximal ICA, moderate stenosis. Left Internal Carotid Stenosis (% by NASCET Criteria): 60% Cervical Vertebral Arteries: Patency: Bilateral Dominance: Codominant Eccentric predominantly calcific atherosclerotic plaque present in the origin of the right vertebral artery resulting in moderate focal stenosis. Predominantly calcific atherosclerotic plaque present in the origin of the left vertebral artery, resulting in mild focal stenosis. Intracranial Circulation: Anterior Circulation: Multifocal calcific atherosclerotic plaques are present in the bilateral carotid siphon resulting mild right and moderate left stenosis. The A1 segments are codominant. The ACAs are patent bilaterally. The MCAs are patent bilaterally. Vertebrobasilar Circulation: The left intradural vertebral artery is mildly more dominant. Bilateral intradural vertebral arteries are patent. The basilar artery is patent. There is moderate focal stenosis in the proximal segment of the left P2 segment. Mild focal stenosis in the distal left P2 segment. The right BINDING BENCH WORKER is patent. Bilateral SCA, AICA, and PICA are patent. Arachnoid granulations present in the bilateral transverse venous sinuses, greater on the right than the left. Visualized dural venous sinuses are patent. Technical Services Consultant (topogram) images: No additional findings. IMPRESSION: No acute intracranial process. Mild right ICA stenosis, 30% and Moderate left ICA stenosis 60% by NASCET criteria. Moderate right and mild left vertebral artery stenosis at origin. Moderate left distal ICA and mild right distal ICA stenosis. Moderate focal stenosis of the proximal left P2 segment. Arterial blood flow was measured to detect acute large vessel occlusion by computer aided detection software: None. Concordance between software and imaging review: Concordant. Business Controller: MALCOLM Transcribe Date/Time: Oct 30 2022 3:36P Dictated by : ALEM PAGAN DO This examination was interpreted and the report reviewed and electronically signed by: RAMÍREZ MATTHEWS MD on Oct 30 2022 4:10PM EST [id number] [facility] ED NOTEon 10-30-2022 ED NOTE HNO ID: [id number] Author: Haley Thomas RN Service: ? Author Type: Registered Nurse Type: ED Notes Filed: 10/30/2022 8:59 PM Note Text: 1930: Per Dr. Macias no need for Q1h neuro checks [facility] ED NOTE HNO ID: [id number] Author: Asia Cheng RN Service: ? Author Type: Registered Nurse Type: ED Notes Filed: 10/30/2022 3:46 PM Note Text: pt made stroke protocol per [facility] ED NOTE HNO ID: [id number] Author: Asia Cheng RN Service: ? Author Type: Registered Nurse Type: ED Notes Filed: 10/30/2022 3:37 PM Note Text: dr in room to talk with pt and call stroke alert [facility] ED NOTE HNO ID: [id number] Author: Yumiko Pineda RN Service: ? Author Type: Registered Nurse Type: ED Notes Filed: 10/30/2022 2:23 PM Note Text: Pt was working on computer around 11 am. Pt got up and loss all vision in lt eye. Pt was seen at [place], then sent to eye dr. Pt states eye dr snyder there is a blood clot in lt eye and she needed to go to [facility] for possible stroke in lt eye [facility] ED PROV NOTEon 10-30-2022 ED PROV NOTE HNO ID: [id number] Author: Dawn Macias DO Service: Emergency Medicine Author Type: Physician Type: ED Provider Notes Filed: 10/30/2022 9:17 PM Note Text: ED Provider Note Patient Name: Elena Galeano : 1960 SERVICE DATE: 10/30/22 History Patient presents with: Loss Of Vision: Lt eye, blood clot Elena Galeano is a 62-year-old female is presenting to the emergency department from ophthalmology office where she was diagnosed with central retinal artery occlusion. She was referred here for further stroke work-up. Patient does have a history of atrial fibrillation though is not currently on any anticoagulation. He has never had any strokes or issues like this in the past. Around 1030-11 AM she did experience sudden vision loss. She had been having mild headaches over the last several days as well prior to the onset of her symptoms today. She otherwise has felt well. Denies any numbness, tingling or weakness. PAST MEDICAL HISTORY Diagnosis Date Anxiety Depression Hypertension Lymphoma (HCC) 10/2010 Right knee pain 06/12/2014 PAST SURGICAL HISTORY Procedure Laterality Date ANESTH OPEN/SURG ARTHRS TOTAL KNEE ARTHROPLASTY 05/19/2015 right TKA APPENDECTOMY ARTHROSCOPY KNEE SUBCHONDROPLAST 10/11/2014 right knee medial menisectomy AND femoral tibial subchondroplasty COLONOSCOPY FLX DX W/COLLJ SPEC WHEN PFRMD 05/31/13 Colonoscopy EGD 2013 PAST SURGICAL HISTORY OF left ovary and fallopian tube removed for a benign cyst, done in her 20's PAST SURGICAL HISTORY OF Pilonidal cyst removed PAST SURGICAL HISTORY OF 01/2013 port a cath, left , 2011 with revision in 2012 TONSILLECTOMY PRIMARY/SECONDARY Tonsillectomy FAMILY HISTORY Problem Relation Age of Onset None Mother None Father None Sister X 3 None Brother X 2 Social History Tobacco Use Smoking status: Former Packs/day: 0.50 Years: 30.00 Pack years: 15.00 Types: Cigarettes Quit date: 01/22/2013 Years since quittin.7 Smokeless tobacco: Never Vaping Use Vaping Use: Never used Substance and Sexual Activity Alcohol use: No Drug use: No Sexual activity: Not on file ALLERGIES Allergen Reactions Seasonal Allergies Other: See Comments sneezing and stuffy nose Review of Systems Constitutional: Negative for chills and fever. HENT: Negative for congestion, rhinorrhea and sore throat. Eyes: Positive for visual disturbance. Respiratory: Negative for cough and shortness of breath. Cardiovascular: Negative for chest pain, palpitations and leg swelling. Gastrointestinal: Negative for abdominal pain, diarrhea, nausea and vomiting. Genitourinary: Negative for dysuria and hematuria. Musculoskeletal: Negative for back pain. Skin: Negative for pallor, rash and wound. Neurological: Positive for headaches. Psychiatric/Behavioral : Negative for confusion. Physical Exam Vitals [10/30/22 1418] BP Pulse Temp Temp src Resp SpO2 Weight Height 179/72 64 36.9 ?C (98.4 ?F) Oral 18 98 % 93 kg (205 lb) 1.651 m (5' 5) Physical Exam Vitals and nursing note reviewed. Constitutional: General: She is not in acute distress. Appearance: She is well-developed. HENT: Head: Normocephalic and atraumatic. Right Ear: External ear normal. Left Ear: External ear normal. Eyes: General: No scleral icterus. Right eye: No discharge. Left eye: No discharge. Extraocular Movements: Extraocular movements intact. Conjunctiva/sclera: Conjunctivae normal. Pupils: Pupils are equal, round, and reactive to light. Comments: Both eyes dilated and non reactive though she had a dilated exam with ophthalmology this morning, likely 2/2 medications. Cardiovascular: Rate and Rhythm: Normal rate and regular rhythm. Heart sounds: No murmur heard. No friction rub. No gallop. Pulmonary: Effort: Pulmonary effort is normal. No respiratory distress. Breath sounds: Normal breath sounds. No wheezing or rales. Chest: Chest wall: No tenderness. Abdominal: General: Bowel sounds are normal. There is no distension. Palpations: Abdomen is soft. There is no mass. Tenderness: There is no abdominal tenderness. There is no guarding or rebound. Musculoskeletal: General: No tenderness or deformity. Normal range of motion. Cervical back: Normal range of motion and neck supple. Lymphadenopathy: Cervical: No cervical adenopathy. Skin: General: Skin is warm and dry. Coloration: Skin is not pale. Findings: No erythema or rash. Neurological: Mental Status: She is alert and oriented to person, place, and time. GCS: GCS eye subscore is 4. GCS verbal subscore is 5. GCS motor subscore is 6. Motor: Motor function is intact. Coordination: Coordination is intact. Gait: Gait is intact. Comments: Left sided vision loss, complete. Right eye has normal vision in all jiménez NIHSS: 1(a). Mental Status - LOC 0 = Alert and Attentive 1(b). LOC Questions 0 = Correct age and (more content not included)... Normal [facility] EKGon 10-30-2022 Electrocardiogram Ventricular Rate : 6 0 BPM Atrial Rate : 60 BPM P-R Interval : 184 ms QRS Duration : 88 ms Q-T Interval : 446 ms QTC Calculation(Bazett) : 446 ms Calculated P [place] : 67 degrees Calculated R [place] : 43 degrees Calculated T [place] : 61 degrees NORMAL SINUS RHYTHM NORMAL ECG 1516 Confirmed by DAWN MACIAS DO ([id number]), publication editor MAGDIEL GILBERT ([id number]) on 10/31/2022 1:19:48 PM NAME : ELENA GALEANO PID : [id number] : 1960 Gender : Female Race : ORD : Procedure Date : Oct 30 2022 15:13:12 Edit Date : Oct 31 2022 13:19:51 Diagnosis: NORMAL SINUS RHYTHM NORMAL ECG 1516 Confirmed by DAWN MACIAS DO ([id number]), publication editor MAGDIEL GILBERT ([id number]) on 10/31/2022 1:19:48 PM Test Reason : Location : 1 : ER ED Overread By : DAWN MACIAS DO Edited By : MAGDIEL GILBERT Referred By : , Acquired by : YURIY, Normal [facility] ESR Westergren method (Bld) [Velocity]on 10-30-2022 ESR (Bld) [Velocity] 14 mm/h Normal 0-20 [facility] Comment on above: Order Comment: Brian ramey Type: BLOOD SPECIMENOrdering Facility: [facility] [place] Address: [address] [place] [id number] Performed By: #### 5 5454-3, 4537-7 ####[facility] LABCLIA [id number] [facility] [id number] [place] [address] [place] HbA1c (Bld)on 10-30-2022 Average glucose Estimated from glycated hemoglobin (Bld) [Mass/Vol] 114 mg/dL [facility] Comment on above: Order Comment: Brian ramey Type: BLOOD SPECIMENOrdering Facility: [facility] [place] Address: [address] [phone] Result Comment: eAG: (Estimated average glucose) is a calculated value from HgbA1c and is union representative of the average blood glucose level in the last 2-3 month period. Performed By: #### 5 5454-3, 4537-7 ####[facility] LABCLIA [id number] [address] [place] HbA1c (Bld) [Mass fraction] 5.6 % Normal 4.3-5.6 [facility] Comment on above: Order Comment: Brian ramey Type: BLOOD SPECIMENOrdering Facility: [facility] [place] Address: [address] [address] Result Comment: Amer ican Diabetes Association guidelines indicate that patients with HgbA1c in the range 5.7-6.4% are at increased risk for development of diabetes, and intervention by lifestyle modification may be beneficial. HgbA1c greater or equal to 6.5% is considered diagnostic of diabetes. Performed By: #### 5 5454-3, [address]377 ####[facility] LABCLIA [id number] [address] [id number] [place] PT panel Coag (PPP)on 2022 INR Coag (PPP) [Relative time] 1.0 {INR} Normal 0.9-1.3 [facility] Comment on above: Order Comment: Brian ramey Type: BLOOD SPECIMENOrdering Facility: [facility] [place] Address: [address] [place] [phone] Result Comment: Raven min K Antagonist (VKA) Therapeutic Range: INR 2 to 3 (Target INR of 2.5) Note: For patients treated with VKA drugs, such as warfarin, the [place] [employer] 2012 Guideline recommends a therapeutic INR range of 2 to 3 (target INR of 2.5). This recommendation includes high-risk patients with antiphospholipid syndrome with previous arterial or venous thromboembolism, current-generation mechanical or bioprosthetic aortic heart valve replacement. Note: Patients with mechanical aortic valve replacement and additional risk factors for thromboembolic events (atrial fibrillation, previous thromboembolism, LV dysfunction, hypercoagulable conditions) or an older generation mechanical AVR (i.e., ball in-Cage) or any mechanical MVR should have a INR therapeutic range of 2.5 to 3.5 (target INR of 3). Lia GH, et al. Chest 2012, 141:7S-47S Celia RA, et al. [facility] 2017, 70: 252-289 Performed By: #### 3 4528-0 ####[facility] LABORATORYCLIA [id number] [place] [address] [facility] PT Coag (PPP) [Time] 10.1 s Normal 9.7-13.0 [facility] Comment on above: Order Comment: Speci men Type: BLOOD SPECIMENOrdering Facility: [facility] [place] Address: [place] [address] Performed By: #### 3 4528-0 ####SIPSE[facility] LABORATORYCLIA [id number] [address] Provider Note - ED v3on Provider Note - ED v3 Provider Note: Chart Review: ED NOTES ED NOTES: Limitations to History: None HPI: 62-year-old female presents with complete loss of vision in her left eye. States it occurred 1 hour ago. Got up from the computer and had complete vision loss. States that she can tell that there are lights above her but otherwise can see nothing. Denies any pain. Denies any fall or trauma. Denies any nausea, vomiting, headache, neck pain. Additional History Obtained from: Significant other Physical Exam: VS: As documented in the triage note and EMR flowsheet from this visit were reviewed. Appearance: Alert. cooperative, in no acute distress. Skin: Intact, dry skin, no lesions, rash, petechiae or purpura. Eyes: Right eye reactive. Left eye significantly sluggish. 4 mm at baseline. No evidence of entrapment. Complete vision loss with inability to see or count fingers. HENT: Normocephalic, atraumatic. Nares patent. No intraoral lesions. Neck: Supple, without meningismus. Trachea at midline. No lymphadenopathy. Pulmonary: Clear bilaterally with good chest wall excursion. No rales, rhonchi or wheezing. No accessory muscle use or stridor. Cardiac: Regular rate and rhythm, no rubs, murmurs, or gallops. No JVD, Carotids without bruits. Neurological: Cranial nerves are grossly intact, grossly normal sensation, no weakness, no focal findings identified. Psychiatric: Appropriate mood and affect. HISTORY OF PRESENTING ILLNESS ELENA is a 62 year old Female and was seen by me at 30-Oct-2022 12:17. Triage Information: Most recent Vital Sign Value Date PAST MEDICAL HISTORY ALLERGIES/INTOLERANCES : No Known Allergies HEALTH HISTORY: No documented data. OUTPATIENT MEDICATIONS: Home Medications Review Status for Reconciliation: N/A Med Status: Patient Currently Takes Medications Drug Name: triamterene-hydrochlor othiazide 37.5 mg-25 mg oral capsule Instructions: 1 cap(s) orally once a day SIGNIFICANT EVENTS: Past Medical History Description:non hodgkin lymphoma Additional Notes:8 years ago/ Description:CLL Description:chronic lymphocytic leukemia Additional Notes:8 years ago Description:irregular heart beats Description:HYPERTENSI ON Past Surgical History Description:RT KNEE REPLACEMENT, T&A , OVERY Social/Behavioral Description:DENIES ALCOHOL/TOBACCO CRITICAL CARE VITAL SIGNS: T PRBP SpO2O2(LPM) %FiO2 Method 30-Oct-2022 12:22:[id number]/6 3 95 room air, no respiratory support MDM MDM/ED COURSE: Medical Decision Making: Patient appears well nontoxic. Complete left eye vision loss. Spoke with ticket taker Dr. Lyles who advised her to come to his office right away for evaluation. will drive her to the office. Stable at time of discharge. Differential Diagnoses Considered: CRAO, retinal detachment, glaucoma Chronic Medical Conditions Significantly Affecting Care: Hypertension, hyperlipidemia Escalation of Care: Appropriate for immediate discharge and follow-up right now at ophthalmology office. Discussion of Management with Other Providers: I discussed the patient/results with: Equal Opportunity Director Dr. Lyles. DISPOSITION Diagnosis/Annotation: ED Dx Name:Vision loss Code:H54.7 Disposition: discharged Type: home CONSULT CRITICAL CARE TIME Is this a critically ill patient: no Electronic Signatures: Larry Ervin) (Signed 30-Oct-2022 12:29) Authored: ED Notes, HPI, PMH, PE, Results/Vital Signs, MDM/ED Course, Clinical Impression, Attestation, Chart Review, Scores Last Updated: 30-Oct-2022 12:29 by Larry Ervin) [facility] Risk Screen - Adult Emergenc yon 10-30-2022 Risk Screen - Adult Emergency Preferred Language: Preferred Language: Preferred Language for Discussing Health Care (patient/designee)Engl eliecer Patient Preferred Pharmacy: Patient Preferred Pharmacy Statement: I have reviewed and updated the patient's preferred pharmacy selection for today's visit. Advanced Directives: Advance Directive/DNRno Family Violence Adult: Abuse Screen: Are you or have you been threatened or abused physically, emotionally, or sexually by anyoneno Learning Assessment (Patient): Learning Assessment (Patient): Patient is Able to be Assessed for Learningyes Factors Influencing Readiness to Learnacuteness of illness Factors that Impact Ability to Learnnone Devices/Methods Used to Communicatenone Learning Preferencesaudio Cultural Considerationsnone Developmental Considerationsnone Synagogue Considerationsnone Learning Assessment (Other Learner): Learning Assessment (Other Learner): Other learner availableno Pressure Injury/TB/Substance: Pressure Injury: Do you have a coughno Smoking Statusformer smoker Alcohol Useoccasionally Drug Usedenies Admission Risk Screen: Significant IndicatorsComplete CAGE: CAGE: Is this an injured patient at a Trauma Center ([facility]/[place]): no Electronic Signatures: Mitali Byrd (REINIER) (Signed 30-Oct-2022 12:26) Authored: Preferred Language, Patient Preferred Pharmacy, Advanced Directives, Family Violence Adult, Learning Assessment (Patient), Learning Assessment (Other Learner), Pressure Injury/TB/Substance, Pressure Injury, CAGE Last Updated: 30-Oct-2022 12:26 by Mitali Byrd (REINIER) [facility] SARS-CoV-2 RNA Resp Ql NEWTON+p robeon 10-30-2022 SARS-CoV-2 (COVID-19) RNA NEWTON+probe Ql (Resp) COVID 19 RESULT: SARS-CoV-2 (Agent of COVID-19) Not Detected by RT-PCR or equivalent method. This test has been authorized by FDA under an Emergency Use Authorization (EUA). 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 Dr. Ervin to bedside). Triage Date/Time: 30-Oct-2022 12:23 JING: 4 Vital Signs: Temperature: 97.5F ( 36.3C) taken forehead Blood Pressure: 163/63 Mean: Heart Rate: 70 Respiratory Rate: 16 Pulse Oximetry: 95% on room air, no respiratory support. Height: 5 feet 5.00 inches. 165.1 CM Weight: 205.2 pounds. Calculated 93.1 kg. (stated) Calculated BMI (kg/m2): 34.155 Calculated BSA (m2) 2.07 Allergies: no Patient has homicidal thoughts: no Last Known Well: unknown Risk Screens Suicide Risk Screen In the Past Month: Have you wished you were or wished you could go to sleep and not wake up no In the Past Month: Have you had any actual thoughts of killing yourself no In Your Lifetime: Have you ever done anything, started to do anything, or prepared to do anything to end your life no Interventions: Echeverria Fall Interventions: LOW INTERVENTIONS: *patient oriented to surroundings and call system, * patient/family falls education completed and documented, *patients fall status communicated during bedside handoff, *whiteboard updated, *mode of toileting discussed with patient, *bed in low position with brakes locked, *call light in reach, * non-skid footwear TRAVEL HISTORY Travel History Coronavirus Screening: no exposure or symptoms Travel Exposure History: NO travel to International locations in the past 30 days PAIN Pain Scale Used: ZULMA Past Medical History: Past Medical History Reviewedyes RT KNEE REPLACEMENT, T&A , OVERY: Past Surgical History, Active HYPERTENSION: Past Medical History, Active irregular heart beats: Past Medical History, Active chronic lymphocytic leukemia: Past Medical History, 8 years ago, Active CLL: Past Medical History, Active non hodgkin lymphoma: Past Medical History, 8 years ago/, Active DENIES ALCOHOL/TOBACCO: Social/Behavioral, Active Electronic Signatures: Mitali Byrd (RN) (Signed 30-Oct-2022 12:25) Entered: Risk Screens, Pain, Travel History, Chart Review, Scores, Past Medical History Authored: Quick Triage, Risk Screens, Pain, Travel History, Chart Review, Scores, Past Medical History Last Updated: 30-Oct-2022 12:25 by Mitali Byrd (REINIER) [facility] Urinalysis complete panel (U )on 10-30-2022 Bacteria LM.HPF (Urine sed) [#/Area] Few Abnormal None Seen [facility] Comment on above: Order Comment: Speci men Type: URINE SPECIMENOrdering Facility: [facility] [place] Address: [address] [place] [address] Performed By: #### 2 4356-8 ####[facility] [id number] [address] Bilirubin Ql (U) Negative Normal Negative [facility] Comment on above: Order Comment: Speci men Type: URINE SPECIMENOrdering Facility: [facility] [place] Address: [address] [place] [address] Performed By: #### 2 4356-8 ####[facility] [id number] [address] Clarity (Unsp spec) Clear Normal Clear [facility] Comment on above: Order Comment: Speci men Type: URINE SPECIMENOrdering Facility: [facility] [place] Address: [address] [place] [address] Performed By: #### 2 4356-8 ####[facility] [id number] [address] Color (U) Yellow Normal Yellow [facility] Comment on above: Order Comment: Speci men Type: URINE SPECIMENOrdering Facility: [facility] [place] Address: [address] [place] [address] Performed By: #### 2 4356-8 ####[facility] [id number] [place] [address] [place] Epithelial cells LM.HPF (Urine sed) [#/Area] Few Normal [facility] Comment on above: Order Comment: Speci men Type: URINE SPECIMENOrdering Facility: [facility] [place] Address: [address] [address] Performed By: #### 2 4356-8 ####[facility] [id number] [place] [address] [place] Glucose Test strip (U) [Mass/Vol] Negative Normal Negative [facility] Comment on above: Order Comment: Speci men Type: URINE SPECIMENOrdering Facility: [facility] [place] Address: [address] [place] [address] Performed By: #### 2 4356-8 ####[facility] [id number] [place] [address] [place] Hemoglobin Ql (U) Negative Normal Negative, Trace [facility] Comment on above: Order Comment: Speci men Type: URINE SPECIMENOrdering Facility: [facility] [place] Address: [address] [place] [address] Performed By: #### 2 4356-8 ####[facility] [id number] [place] [address] [place] Ketones Ql (U) Negative Normal Negative [facility] Comment on above: Order Comment: Speci men Type: URINE SPECIMENOrdering Facility: [facility] [place] Address: [address] [place] [address] Performed By: #### 2 4356-8 ####[facility] [id number] [place] [address] [place] [facility] [place] Leukocyte esterase Test strip Ql (U) Negative Normal Negative [facility] Comment on above: Order Comment: Speci men Type: URINE SPECIMENOrdering Facility: [facility] [place] Address: [address] [place] [address] Performed By: #### 2 4356-8 ####[facility] [id number] [address] Nitrite Ql (U) Negative Normal Negative [facility] Comment on above: Order Comment: Speci men Type: URINE SPECIMENOrdering Facility: [facility] [place] Address: [address] [place] [address] Performed By: #### 2 4356-8 ####[facility] [id number] [address] pH (U) 7.0 [pH] Normal 5.0-8.0 [facility] Comment on above: Order Comment: Speci men Type: URINE SPECIMENOrdering Facility: [facility] [place] Address: [address] [place] [address] Performed By: #### 2 4356-8 ####[facility] [id number] [address] Protein (U) [Mass/Vol] Negative Normal Negative [facility] Comment on above: Order Comment: Speci men Type: URINE SPECIMENOrdering Facility: [facility] [place] Address: [address] [place] [address] Performed By: #### 2 4356-8 ####[facility] [id number] [address] RBC LM.HPF (Urine sed) [#/Area] 0-3 /HPF Normal 0-3 /HPF [facility] Comment on above: Order Comment: Speci men Type: URINE SPECIMENOrdering Facility: [facility] [place] Address: [address] [place] [address] Performed By: #### 2 4356-8 ####[facility] [id number] [address] Specific gravity (U) [Rel density] 1.010 Normal 1.005-1.030 [facility] Comment on above: Order Comment: Speci men Type: URINE SPECIMENOrdering Facility: [facility] [place] Address: [address] [address] Performed By: #### 2 4356-8 ####[facility] [id number] [address] [place] [facility] Urobilinogen Ql (U) 0.2 EU/dL Normal 0.2-1.0 EU/dL [facility] Comment on above: Order Comment: Speci men Type: URINE SPECIMENOrdering Facility: [facility] [place] Address: [address] [address] Performed By: #### 2 4356-8 ####[facility] [id number] [address] [place] WBC LM.HPF (Urine sed) [#/Area] 0-5 /HPF Normal 0-5 /HPF [facility] Comment on above: Order Comment: Speci men Type: URINE SPECIMENOrdering Facility: [facility] [place] Address: [address] [address] Performed By: #### 2 4356-8 ####[facility] [id number] [address] [place] CBC AND ELECTRONIC DIFFon Basophils (Bld) [#/Vol] K/uL 0.00 - 0.15 K/uL [facility] Basophils/100 WBC (Bld) 0.5 % [facility] Differential cell count method Nom (Bld) Electronic Differential [facility] Eosinophils (Bld) [#/Vol] 0.09 10*3/uL 0.00 - 0.42 K/uL [facility] Eosinophils/100 WBC (Bld) 1.5 % [facility] Erythrocyte distribution width (RBC) [Ratio] 13.6 % 10.8 - 14.9 % [facility] Hematocrit (Bld) [Volume fraction] 39.8 % 34.9 - 44.3 % [facility] Hemoglobin (Bld) [Mass/Vol] 13.2 g/dL 11.4 - 15.2 g/dL [facility] Immature granulocytes (Bld) [#/Vol] K/uL NINF - 0.08 K/uL [facility] Immature granulocytes/100 WBC (Bld) 0.2 % [facility] Lymphocytes (Bld) [#/Vol] 2.79 10*3/uL 1.16 - 3.51 K/uL [facility] Lymphocytes/100 WBC (Bld) 45.1 % [facility] MCH (RBC) [Entitic mass] 32.3 pg 25.9 - 33.9 [facility] MCHC (RBC) [Mass/Vol] 33.2 g/dL 31.4 - 35.9 g/dL [facility] MCV (RBC) [Entitic vol] 97.3 fL 79.6 - 97.7 fL [facility] Monocytes (Bld) [#/Vol] 0.57 10*3/uL 0.22 - 0.87 K/uL [facility] Monocytes/100 WBC (Bld) 9.2 % [facility] Neutrophils (Bld) [#/Vol] 2.70 10*3/uL 1.64 - 7.28 K/uL [facility] Nucleated RBC/100 WBC (Bld) [Ratio] 0.0 % [facility] Platelet mean volume (Bld) [Entitic vol] 10.4 fL 8.5 - 12.2 fL [facility] Platelets (Bld) [#/Vol] 179 10*3/uL 150 - 393 K/uL [facility] RBC (Bld) [#/Vol] 4.09 10*6/uL [facility] Seg[facility] neutrophils/100 WBC (Bld) 43.5 % [facility] WBC (Bld) [#/Vol] 6.19 10*3/uL 3.99 - 11. 19 K/uL [facility] COMPREHENSIVE METABOLIC PANE Ethan 09-29-2022 Albumin [Mass/Vol] 4.2 g/dL 3.5 - 5.0 g/dL [facility] ALP [Catalytic activity/Vol] 47 U/L 32 - 126 U/L [facility] ALT [Catalytic activity/Vol] 38 U/L 9 - 48 U/L [facility] Anion gap [Moles/Vol] 11 mmol/L 7 - 17 mmol/L [facility] AST [Catalytic activity/Vol] 39 U/L 10 - 39 U/L [facility] Bilirubin [Mass/Vol] 0.5 mg/dL NINF - 1.5 mg/dL [facility] Calcium [Mass/Vol] 9.6 mg/dL 8.6 - 10. 5 mg/dL [facility] Chloride [Moles/Vol] 103 mmol/L 98 - 10 8 mmol/L [facility] CO2 [Moles/Vol] 29 mmol/L 21 - 31 mmol/L [facility] Creatinine [Mass/Vol] 1.01 mg/dL 0.50 - 1.20 mg/dL [facility] GFR/1.73 sq M.predicted CKD-EPI (S/P/Bld) [Vol rate/Area] 62 - PINF [facility] Comment on above: Reported eGFR is bas ed on the CKD-EPI 2020 equation using creatinine, age, and sex. Glucose [Mass/Vol] 126 mg/dL High 70 - 99 mg/dL [facility] Osmolality Calc [Osmolality] 292 [facility] Potassium [Moles/Vol] 3.9 mmol/L 3.5 - 5.0 mmol/L [facility] Protein [Mass/Vol] 6.6 g/dL 6.4 - 8.3 g/dL [facility] Sodium [Moles/Vol] 139 mmol/L 135 - 145 mmol/L [facility] Urea nitrogen [Mass/Vol] 11 mg/dL 7 - 25 mg/dL [facility] Urea nitrogen/Creatinine [Mass ratio] 11 mg/mg [facility] LACTATE DEHYDROGENASEon LDH Lactate to pyruvate reaction [Catalytic activity/Vol] 192 U/L High 100 - 190 U/L [facility] No Panel Informationon 09-29 Interpretation and review of laboratory results Abnormal [facility] PT Progress Noteon PT Progress Note Therapy Diagnosis Assessed Sacroiliitis (720.2) (M46.1) Plan Goals: Goals set and discussed today. LTG's: 1) Improve Lumbar AROM from Villanueva 40% Ext and 35% b/l SB to Villanueva <= 25% in all planes of deficit in order to facilitate improved gait and mobility. 4-6 weeks 09/20/2022, MET, Lumbar AROM is without significant limitation other then Extension villanueva 15% 2) Improve Core and L hip/knee strength from >= 4/5 to >= 4+/5 throughout in order to facilitate safe gait and mobility. 4-6 weeks 09/20/2022, MET, L hip/knee strength 4+/5 throughout. 3) Improve Modified Oswestry score by >= 5 points in order to improve QOL. 4-6 weeks 09/20/2022, MET, pt improved score from a 7 to a 4 at CA. 4) Improve LBP from 3/10 to <= 0-2 /10 with activity in order to improve QOL. 4-6 weeks 09/20/2022, MET, Pain range 0-3/10 5) Pt will be able to walk longer distances, stand >= 30-40 min, lift/carry objects and perform standing activity in the home without significant limitation 4-6 weeks 09/20/2022, PARTIALLY MET, pt is able to walk longer distances but needs sitting breaks occasionally with standing activity. ST) Pt/caregiver will be I and consistent with HEP in order to maximize strength and flexibility. 2-3 weeks 09/20/2022, MET, pt is I with HEP and has handouts. Planned interventions include: aquatic therapy, cryotherapy, education/instruction, home program, manual therapy and therapeutic exercises . Focus on core strength and gentle ROM/flexibility ex's. Aquatic treatment for 5 weeks and 1 week land based. Frequency and duration: No further visits planned. Potential to achieve rehab goals is good 09/20/2022 PT DC Summary: The pt has made good progress in PT and has MET or PARTIALLY MET all of her PT goals. The pt has improved her core/LE strength and lumbar ROM/flexibility over the course of PT. The pt is I with her HEP and will continue with her ex's on her own at this time. DC PT at this time. Discharge patient: Achieved all and/or the most significant goal(s). Assessment The pt has made good progress in PT and has MET or PARTIALLY MET all of her PT goals. The pt has improved her core/LE strength and lumbar ROM/flexibility over the course of PT. The pt is I with her HEP and will continue with her ex's on her own at this time. DC PT at this time. Response to treatment: improved strength. Adult Risk Screening There are no spiritual/cultural practices/values/needs that are important to know Initial Fall Risk Screening: ELENA has fallen in the last 6 months. She has fallen due to tripped over object. Her fall resulted in the following injury: cut head needing kwasi. ELENA does not have a fear of falling. She does not need assistance with sitting, standing or walking. Does not need assistance walking in her home. She does not need assistance in an unfamiliar setting. The patient is not using an assistive device. Pain Scale: On a scale of 0 to 10, the patient rates the pain at 1. Please identify location of pain: Low back/sacral area and L hip (Pain range 0-3/10 pain range). Pain Quality: aching and dull. The pain makes it hard for the patient to do these things: walking and house work. Living Will. Living Will: Living will on file. Did not bring. Healthcare POA: Health care proxy on file. Did not bring. Declaration of Mental Health Treatment: Declaration of mental health treatment on file. Did not bring. Depression/Suicide Screening: During the past 2 weeks, the patient has not felt down, depressed or hopeless. During the past 2 weeks, the patient has not felt little interest or pleasure in doing things. Insurance Insurance reviewed Visit number: 8 4/ [facility] Ins: 25 visits per year Dx: Sacroillitis M46.1 , S/P SI surgery 3 pins in SI joint on 06/19/2022 Evaluating PT: Wilian Schwartz Subjective Patient reports:. Pt reports that her low back/sacral area pain has improved a lot the last few weeks. Pt reports that she feels ready for DC and will continue with her ex's on her own at this time. Home program performing as directed: Yes. Precautions: Fall Risk: none PMH: hx of CA Non-hodgkins lymphoma (pt is currently CA free), R TKR, L shoulder scope 11/2021. Precautions: [facility] Back precautions (No lifting > 10#, no excessive bending or twisting) due to s/p SI surgery on 06/19/2022 with 3 permanent pins for her SI joint. Treatment Time in clinic started at 10:45 am Time in clinic ended at 11:15 am Total time in clinic is 30 minutes. Total timed code time is 25 minutes. Therapeutic exercise (14988): timed minutes 25, units 2 . Bike 5' Standing: Standing hip abduction 10x2 Hip flexion 10x2 Hip extension 10x2 Heel raises 10x2 Mini Squats 10x2 Step ups forward 10x PT DC summary completed. Following ex's X today due to time. Anti rotations orange TB 10x each (pt. had mild discomfort 2/10 LBP) Supine: TrA x10x5' holds Bridges 2x12 bug progression: leg marches (more content not included)... Normal [facility] PT Progress Noteon 2 PT Progress Note Therapy Diagnosis Assessed Sacroiliitis (720.2) (M46.1) Plan Goals: Goals set and discussed today. LTG's: 1) Improve Lumbar AROM from Villanueva 40% Ext and 35% b/l SB to Villanueva <= 25% in all planes of deficit in order to facilitate improved gait and mobility. 4-6 weeks 2) Improve Core and L hip/knee strength from >= 4/5 to >= 4+/5 throughout in order to facilitate safe gait and mobility. 4-6 weeks 3) Improve Modified Oswestry score by >= 5 points in order to improve QOL. 4-6 weeks 4) Improve LBP from 3/10 to <= 0-2 /10 with activity in order to improve QOL. 4-6 weeks 5) Pt will be able to walk longer distances, stand >= 30-40 min, lift/carry objects and perform standing activity in the home without significant limitation 4-[address]) Pt/caregiver will be I and consistent with HEP in order to maximize strength and flexibility. 2-3 weeks Planned interventions include: aquatic therapy, cryotherapy, education/instruction, home program, manual therapy and therapeutic exercises . Focus on core strength and gentle ROM/flexibility ex's. Aquatic treatment for 5 weeks and 1 week land based. Frequency and duration: 2 time(s) a week, for 6 weeks, for 12 visits. Potential to achieve rehab goals is good Continue to increase strength, ROM, balance, mobility and activity tolerance as able. Progress with POC, as tolerated. Assessment Pt. had mild discomfort with standing anti rotations rating her pain 2/10 but overall was able to tolerate everything else very well. Pt. will need to continue working on LE flexibility, strengthening of the core and LE. Pt. educated to complete HS stretch as she was significantly limited. Response to treatment: improved joint mobility/ROM, improved strength and improved knowledge and understanding of condition. Patient was able to complete today's treatment with some difficulty. Adult Risk Screening There are no spiritual/cultural practices/values/needs that are important to know Initial Fall Risk Screening: ELENA has fallen in the last 6 months. She has fallen due to tripped over object. Her fall resulted in the following injury: cut head needing kwasi. ELENA does not have a fear of falling. She does not need assistance with sitting, standing or walking. Does not need assistance walking in her home. She does not need assistance in an unfamiliar setting. The patient is not using an assistive device. Pain Scale: On a scale of 0 to 10, the patient rates the pain at 1. Please identify location of pain: Low back/sacral area and L hip (Pain range 0-3/10 pain range). Pain Quality: aching and dull. The pain makes it hard for the patient to do these things: walking and house work. Living Will. Living Will: Living will on file. Did not bring. Healthcare POA: Health care proxy on file. Did not bring. Declaration of Mental Health Treatment: Declaration of mental health treatment on file. Did not bring. Depression/Suicide Screening: During the past 2 weeks, the patient has not felt down, depressed or hopeless. During the past 2 weeks, the patient has not felt little interest or pleasure in doing things. Insurance Insurance reviewed Visit number: 7 4/ [facility] [employer] Ins: 25 visits per year Dx: Sacroillitis M46.1 , S/P SI surgery 3 pins in SI joint on 06/19/2022 Evaluating PT: Wilian Schwartz Subjective Patient reports:. Pt. states she is not currently experiencing pain but at times when she is walking or standing rated 1/10. Precautions: Fall Risk: none PMH: hx of CA Non-hodgkins lymphoma (pt is currently CA free), R TKR, L shoulder scope 11/2021. Precautions: [facility] precautions (No lifting > 10#, no excessive bending or twisting) due to s/p SI surgery on 06/19/2022 with 3 permanent pins for her SI joint. Treatment Time in clinic started at 10:30 am Time in clinic ended at 11:15 am Total time in clinic is 45 minutes. Total timed code time is 41 minutes. Therapeutic exercise (40346): timed minutes 41 . Bike 5' Standing: Standing hip abduction 10x2 (P) Hip flexion 10x2 (P) Hip extension 10x2 (P) Heel raises 10x2 Mini Squats 10x2 Step ups forward 10x Anti rotations orange TB 10x each (pt. had mild discomfort 2/10 LBP) Supine: TrA x10x5' holds Bridges 2x12 bug progression: leg marches 10x arms overhead 10x, combined 2x10 adduction into ball 2x10 with 3' hold HS stretch 30sec x 2 Piriformis stretch 30 sec x2 SKTC 5 sec. holds x 10 each leg. Aquatic Therapy (30938): timed minutes 41, units 3 . All exercises preformed in 70-75% unloading unless noted TrA x10 5? hold/instruction (review) Side Stepping 3 laps Hip flex x15 Hip abd x15 Alt march x15 Squats x15 Heel raises x15 Paddles with TrA Level 3 2X10 -flex/ext, push/pull, abd/add, H abd/add DB ROLLS [place] 30 ea. dir Paddle Board push/pull, flex/ext x10 100% Unloading with LG noodle and B UE support -bike 5? -abd/add 5? -hang 5? Gradual exit 3? . ' (more content not included)... [facility] PT Progress Noteon 2 PT Progress Note Therapy Diagnosis Assessed Sacroiliitis (720.2) (M46.1) Plan Goals: Goals set and discussed today. LTG's: 1) Improve Lumbar AROM from [place] 40% Ext and 35% b/l SB to [place] <= 25% in all planes of deficit in order to facilitate improved gait and mobility. 4-6 weeks 2) Improve Core and L hip/knee strength from >= 4/5 to >= 4+/5 throughout in order to facilitate safe gait and mobility. 4-6 weeks 3) Improve Modified Oswestry score by >= 5 points in order to improve QOL. 4-6 weeks 4) Improve LBP from 3/10 to <= 0-2 /10 with activity in order to improve QOL. 4-6 weeks 5) Pt will be able to walk longer distances, stand >= 30-40 min, lift/carry objects and perform standing activity in the home without significant limitation 4-[address]) Pt/caregiver will be I and consistent with HEP in order to maximize strength and flexibility. 2-3 weeks Planned interventions include: aquatic therapy, cryotherapy, education/instruction, home program, manual therapy and therapeutic exercises . Focus on core strength and gentle ROM/flexibility ex's. Aquatic treatment for 5 weeks and 1 week land based. Frequency and duration: 2 time(s) a week, for 6 weeks, for 12 visits. Potential to achieve rehab goals is good Continue with core strength to improve sleep, standing, ADL. Progress with POC, as tolerated. Assessment patient tolerated treatment without pain today. Patient has Fair Tra and keeps intact with ther-ex. Patient needing one UE support with LE ther-ex and no support with 100% unloading. patient has good form/understanding with ther-ex and keeps body in good alignment. Continue with core stability while performing dyn activity to decrease back pain. Adult Risk Screening There are no spiritual/cultural practices/values/needs that are important to know Initial Fall Risk Screening: ELENA has fallen in the last 6 months. She has fallen due to tripped over object. Her fall resulted in the following injury: cut head needing kwasi. ELENA does not have a fear of falling. She does not need assistance with sitting, standing or walking. Does not need assistance walking in her home. She does not need assistance in an unfamiliar setting. The patient is not using an assistive device. Please identify location of pain: Low back/sacral area and L hip (Pain range 0-3/10 pain range). Pain Quality: aching and dull. The pain makes it hard for the patient to do these things: walking and house work. Living Will. Living Will: Living will on file. Did not bring. Healthcare POA: Health care proxy on file. Did not bring. Declaration of Mental Health Treatment: Declaration of mental health treatment on file. Did not bring. Depression/Suicide Screening: During the past 2 weeks, the patient has not felt down, depressed or hopeless. During the past 2 weeks, the patient has not felt little interest or pleasure in doing things. Insurance Insurance reviewed Visit number: 6 4/ [facility] [employer] Ins: 25 visits per year Dx: Sacroillitis M46.1 , S/P SI surgery 3 pins in SI joint on 06/19/2022 Evaluating PT: Wilian Schwartz Subjective Patient reports:. Patient reports no falls and no to all covid questions. patient reports 0/10 low back pain today. Post aquatics states no pain. Precautions: Fall Risk: none PMH: hx of CA Non-hodgkins lymphoma (pt is currently CA free), R TKR, L shoulder scope 11/2021. Precautions: [facility] precautions (No lifting > 10#, no excessive bending or twisting) due to s/p SI surgery on 06/19/2022 with 3 permanent pins for her SI joint. Treatment Time in clinic started at 8:30 am Time in clinic ended at 9:15 am Total time in clinic is 45 minutes. Total timed code time is 41 minutes. Aquatic Therapy (13371): timed minutes 41, units 3 . All exercises preformed in 70-75% unloading unless noted TrA x10 5? hold/instruction (review) Side Stepping 3 laps Hip flex x15 Hip abd x15 Alt december x15 Squats x15 Heel raises x15 Paddles with TrA Level 3 2X10 -flex/ext, push/pull, abd/add, H abd/add DB ROLLS [place] 30 ea. dir Paddle Board push/pull, flex/ext x10 100% Unloading with LG noodle and B UE support -bike 5? -abd/add 5? -hang 5? Gradual exit 3? . 'Scores and Scales' Signatures Electronically signed by : Silvia Mcneill, [employer] SALES AGENT; Aug 27 2022 9:12AM EST (Author) Electronically signed by : Jaswinder Schwartz, PT; Aug 30 2022 5:50PM EST [facility] PT Progress Noteon 2 PT Progress Note No report was sent [facility] PT Progress Noteon 2 PT Progress Note Therapy Diagnosis Assessed Sacroiliitis (720.2) (M46.1) Plan Goals: Goals set and discussed today. LTG's: 1) Improve Lumbar AROM from [place] 40% Ext and 35% b/l SB to [place] <= 25% in all planes of deficit in order to facilitate improved gait and mobility. 4-6 weeks 2) Improve Core and L hip/knee strength from >= 4/5 to >= 4+/5 throughout in order to facilitate safe gait and mobility. 4-6 weeks 3) Improve Modified Oswestry score by >= 5 points in order to improve QOL. 4-6 weeks 4) Improve LBP from 3/10 to <= 0-2 /10 with activity in order to improve QOL. 4-6 weeks 5) Pt will be able to walk longer distances, stand >= 30-40 min, lift/carry objects and perform standing activity in the home without significant limitation 4-[address]) Pt/caregiver will be I and consistent with HEP in order to maximize strength and flexibility. 2-3 weeks Planned interventions include: aquatic therapy, cryotherapy, education/instruction, home program, manual therapy and therapeutic exercises . Focus on core strength and gentle ROM/flexibility ex's. Aquatic treatment for 5 weeks and 1 week land based. Frequency and duration: 2 time(s) a week, for 6 weeks, for 12 visits. Potential to achieve rehab goals is good Continue with core strength to improve sleeping, standing, ADL. Progress with POC, as tolerated. Assessment Patient tolerated treatment without increased pain. Patient has Fair Tra and keeps intact with ther-ex. Patient needing one UE support with LE ther-ex and no support with 100% unloading. Patient has good form/understanding with ther-ex and keeps body in good alignment. Continue with core stability while performing dyn activity to decrease back pain. Adult Risk Screening There are no spiritual/cultural practices/values/needs that are important to know Initial Fall Risk Screening: ELENA has fallen in the last 6 months. She has fallen due to tripped over object. Her fall resulted in the following injury: cut head needing kwasi. ELENA does not have a fear of falling. She does not need assistance with sitting, standing or walking. Does not need assistance walking in her home. She does not need assistance in an unfamiliar setting. The patient is not using an assistive device. Please identify location of pain: Low back/sacral area and L hip (Pain range 0-3/10 pain range). Pain Quality: aching and dull. The pain makes it hard for the patient to do these things: walking and house work. Living Will. Living Will: Living will on file. Did not bring. Healthcare POA: Health care proxy on file. Did not bring. Declaration of Mental Health Treatment: Declaration of mental health treatment on file. Did not bring. Depression/Suicide Screening: During the past 2 weeks, the patient has not felt down, depressed or hopeless. During the past 2 weeks, the patient has not felt little interest or pleasure in doing things. Insurance Insurance reviewed Visit number: 5 4/ [facility] [employer] Ins: 25 visits per year Dx: Sacroillitis M46.1 , S/P SI surgery 3 pins in SI joint on 06/19/2022 Evaluating PT: Wilian Schwartz Subjective Patient reports:. Patient reports no falls and no to all covid questions. Patient reports 0/10 low back pain. Post aquatics states 0/10 pain. Precautions: Fall Risk: none PMH: hx of CA Non-hodgkins lymphoma (pt is currently CA free), R TKR, L shoulder scope 11/2021. Precautions: [facility] precautions (No lifting > 10#, no excessive bending or twisting) due to s/p SI surgery on 06/19/2022 with 3 permanent pins for her SI joint. Treatment Time in clinic started at 10:00 am Time in clinic ended at 10:45 am Total time in clinic is 45 minutes. Total timed code time is 41 minutes. Aquatic Therapy (08612): timed minutes 41, units 3 . All exercises preformed in 70-75% unloading unless noted TrA x10 5? hold/instruction (review) Side Stepping 3 laps Hip flex x15 P Hip abd x15 P Alt march x15 P Squats x15 P Heel raises x15 P Paddles with TrA Level 3 2X10 -flex/ext, push/pull, abd/add, H abd/add DB ROLLS [place] 30 ea. dir Paddle Board push/pull, flex/ext x10 N 100% Unloading with LG noodle and B UE support -bike 5? -abd/add 5? -hang 5? Gradual exit 3? . 'Scores and Scales' Signatures Electronically signed by : Silvia Mcneill PTA; Aug 20 2022 10:45AM EST (Author) Electronically signed by : Jaswinder Schwartz PT; Aug 23 2022 11:55AM EST Normal [facility] PT Progress Noteon 2 PT Progress Note Therapy Diagnosis Assessed Sacroiliitis (720.2) (M46.1) Plan Goals: Goals set and discussed today. LTG's: 1) Improve Lumbar AROM from [place] 40% Ext and 35% b/l SB to [place] <= 25% in all planes of deficit in order to facilitate improved gait and mobility. 4-6 weeks 2) Improve Core and L hip/knee strength from >= 4/5 to >= 4+/5 throughout in order to facilitate safe gait and mobility. 4-6 weeks 3) Improve Modified Oswestry score by >= 5 points in order to improve QOL. 4-6 weeks 4) Improve LBP from 3/10 to <= 0-2 /10 with activity in order to improve QOL. 4-6 weeks 5) Pt will be able to walk longer distances, stand >= 30-40 min, lift/carry objects and perform standing activity in the home without significant limitation 4-[address]) Pt/caregiver will be I and consistent with HEP in order to maximize strength and flexibility. 2-3 weeks Planned interventions include: aquatic therapy, cryotherapy, education/instruction, home program, manual therapy and therapeutic exercises . Focus on core strength and gentle ROM/flexibility ex's. Aquatic treatment for 5 weeks and 1 week land based. Frequency and duration: 2 time(s) a week, for 6 weeks, for 12 visits. Potential to achieve rehab goals is good Plan to continue with core strengthening to allow for improved trunk stability with ADLs. JW . Progress with POC, as tolerated. Assessment Patient confirmed name and date of . Patient demonstrated fair trunk control with UE/LE paddles, able to increase tulio with while maintaining control. Added UE kick board today, patient required cues to keep trunk flexion. Cues to maintain good posture with unloading. Adult Risk Screening There are no spiritual/cultural practices/values/needs that are important to know Initial Fall Risk Screening: ELENA has fallen in the last 6 months. She has fallen due to tripped over object. Her fall resulted in the following injury: cut head needing kwasi. ELENA does not have a fear of falling. She does not need assistance with sitting, standing or walking. Does not need assistance walking in her home. She does not need assistance in an unfamiliar setting. The patient is not using an assistive device. Please identify location of pain: Low back/sacral area and L hip (Pain range 0-3/10 pain range). Pain Quality: aching and dull. The pain makes it hard for the patient to do these things: walking and house work. Living Will. Living Will: Living will on file. Did not bring. Healthcare POA: Health care proxy on file. Did not bring. Declaration of Mental Health Treatment: Declaration of mental health treatment on file. Did not bring. Depression/Suicide Screening: During the past 2 weeks, the patient has not felt down, depressed or hopeless. During the past 2 weeks, the patient has not felt little interest or pleasure in doing things. Insurance Insurance reviewed Visit number: 4 4/ [facility] [employer] Ins: 25 visits per year Dx: Sacroillitis M46.1 , S/P SI surgery 3 pins in SI joint on 06/19/2022 Evaluating PT: Wilian Schwartz Subjective Patient reports:. Patient reports that she has tenderness on the L side, 2/10 secondary to over doing it yesterday as she made several trips up and down the stairs. 0/10 pain levels while unloading and after exiting pool. Home program performing as directed: Yes. Precautions: Fall Risk: none PMH: hx of CA Non-hodgkins lymphoma (pt is currently CA free), R TKR, L shoulder scope 11/2021. Precautions: [facility] precautions (No lifting > 10#, no excessive bending or twisting) due to s/p SI surgery on 06/19/2022 with 3 permanent pins for her SI joint. Treatment Time in clinic started at 1000 am Time in clinic ended at 10:45 am Total time in clinic is 45 minutes. Total timed code time is 41 minutes. Aquatic Therapy (83400): timed minutes 43, units 3 . All exercises preformed in 70-75% unloading unless noted TrA x10 5? hold/instruction (review) Side Stepping 3 laps Hip flex x15 P Hip abd x15 P Alt march x15 P Squats x15 P Heel raises x15 P Paddles with TrA Level 1 2X10 -flex/ext, push/pull, abd/add, H abd/add DB ROLLS [place] 30 ea. dir Paddle Board push/pull, flex/ext x10 N 100% Unloading with LG noodle and B UE support -bike 5? -abd/add 5? -hang 5? Gradual exit 3? . 'Scores and Scales' Signatures Electronically signed by : Laya Gomez [employer] SALES AGENT; Aug 17 2022 10:43AM EST (Author) Electronically signed by : Jaswinder Schwartz, PT; Aug 17 2022 2:54PM EST [facility] PT Progress Noteon 2 PT Progress Note No report was sent [facility] Therapy Communicationon 07-25 Therapy Communication Message ELENA GALEANO canceled today illness. Signatures Electronically signed by : Silvia Mcneill PTA; Aug 13 2022 9:04AM EST (Author) [facility] PT Progress Noteon 2 PT Progress Note Therapy Diagnosis Assessed Sacroiliitis (720.2) (M46.1) Plan Goals: Goals set and discussed today. LTG's: 1) Improve Lumbar AROM from [place] 40% Ext and 35% b/l SB to [place] <= 25% in all planes of deficit in order to facilitate improved gait and mobility. 4-6 weeks 2) Improve Core and L hip/knee strength from >= 4/5 to >= 4+/5 throughout in order to facilitate safe gait and mobility. 4-6 weeks 3) Improve Modified Oswestry score by >= 5 points in order to improve QOL. 4-6 weeks 4) Improve LBP from 3/10 to <= 0-2 /10 with activity in order to improve QOL. 4-6 weeks 5) Pt will be able to walk longer distances, stand >= 30-40 min, lift/carry objects and perform standing activity in the home without significant limitation 4-[address]) Pt/caregiver will be I and consistent with HEP in order to maximize strength and flexibility. 2-3 weeks Planned interventions include: aquatic therapy, cryotherapy, education/instruction, home program, manual therapy and therapeutic exercises . Focus on core strength and gentle ROM/flexibility ex's. Aquatic treatment for 5 weeks and 1 week land based. Frequency and duration: 2 time(s) a week, for 6 weeks, for 12 visits. Potential to achieve rehab goals is good Continue with core strength to improve pain, standing, ambulation, sleeping. Progress with POC, as tolerated. Assessment Patient tolerated treatment without increased pain. Patient has Fair TrA and keeps intact with ther-ex. Patient needing one UE support with LE ther-ex and no support with 100% unloading. Patient has good form/understanding with ther-ex and keeps body in good alignment. Added DB rolls to program. Continue with core stability while performing dyn activity to decrease back pain. Adult Risk Screening There are no spiritual/cultural practices/values/needs that are important to know Initial Fall Risk Screening: ELENA has fallen in the last 6 months. She has fallen due to tripped over object. Her fall resulted in the following injury: cut head needing kwasi. ELENA does not have a fear of falling. She does not need assistance with sitting, standing or walking. Does not need assistance walking in her home. She does not need assistance in an unfamiliar setting. The patient is not using an assistive device. Please identify location of pain: Low back/sacral area and L hip (Pain range 0-3/10 pain range). Pain Quality: aching and dull. The pain makes it hard for the patient to do these things: walking and house work. Living Will. Living Will: Living will on file. Did not bring. Healthcare POA: Health care proxy on file. Did not bring. Declaration of Mental Health Treatment: Declaration of mental health treatment on file. Did not bring. Depression/Suicide Screening: During the past 2 weeks, the patient has not felt down, depressed or hopeless. During the past 2 weeks, the patient has not felt little interest or pleasure in doing things. Insurance Insurance reviewed Visit number: 3 1/ [facility] [employer] Ins: 25 visits per year Dx: Sacroillitis M46.1 , S/P SI surgery 3 pins in SI joint on 06/19/2022 Evaluating PT: Wilian Schwartz Subjective Patient reports:. Patient reports no falls and no to all covid questions. Patient reports 0/10 pain in low back today. Post aquatics states 0/10 pain. Precautions: Fall Risk: none PMH: hx of CA Non-hodgkins lymphoma (pt is currently CA free), R TKR, L shoulder scope 11/2021. Precautions: [facility] precautions (No lifting > 10#, no excessive bending or twisting) due to s/p SI surgery on 06/19/2022 with 3 permanent pins for her SI joint. Treatment Time in clinic started at 10:45 am Time in clinic ended at 11:30 am Total time in clinic is 45 minutes. Total timed code time is 41 minutes. Aquatic Therapy (38695): timed minutes 41, units 3 . All exercises preformed in 70-75% unloading unless noted TrA x10 5? hold/instruction (review) Side Stepping 3 laps Hip flex x10 Hip abd x10 Alt december x10 Squats x10 Heel raises x10 Paddles with TrA Level 1 -flex/ext, push/pull, abd/add, H abd/add DB ROLLS [place] 30 ea. dir N 100% Unloading with LG noodle and B UE support -bike 5? -abd/add 5? -hang 5? Gradual exit 3? . 'Scores and Scales' Signatures Electronically signed by : Silvia Mcneill, [employer] SALES AGENT; Aug 11 2022 11:31AM EST (Author) Electronically signed by : Jaswinder Schwartz, PT; Aug 11 2022 6:13PM EST Normal [facility] PT Progress Noteon 2 PT Progress Note No report was sent Normal [facility] PT Progress Note Therapy Diagnosis Assessed Sacroiliitis (720.2) (M46.1) Plan Goals: Goals set and discussed today. LTG's: 1) Improve Lumbar AROM from [place] 40% Ext and 35% b/l SB to [place] <= 25% in all planes of deficit in order to facilitate improved gait and mobility. 4-6 weeks 2) Improve Core and L hip/knee strength from >= 4/5 to >= 4+/5 throughout in order to facilitate safe gait and mobility. 4-6 weeks 3) Improve Modified Oswestry score by >= 5 points in order to improve QOL. 4-6 weeks 4) Improve LBP from 3/10 to <= 0-2 /10 with activity in order to improve QOL. 4-6 weeks 5) Pt will be able to walk longer distances, stand >= 30-40 min, lift/carry objects and perform standing activity in the home without significant limitation 4-[address]) Pt/caregiver will be I and consistent with HEP in order to maximize strength and flexibility. 2-3 weeks Planned interventions include: aquatic therapy, cryotherapy, education/instruction, home program, manual therapy and therapeutic exercises . Focus on core strength and gentle ROM/flexibility ex's. Aquatic treatment for 5 weeks and 1 week land based. Frequency and duration: 2 time(s) a week, for 6 weeks, for 12 visits. Potential to achieve rehab goals is good Plan to continue with core strengthening to allow for improved trunk stability with lifting during ADLs. JW. Assessment Patient confirmed name and date of . Reviewed TrA contraction with patient, good contraction noted with palpation with no noted compensation. Fair trunk stability with UE/LE exercises, encouraged patient to increase tulio of movement but patient continued with slow to moderate tulio to keep trunk stable. Abolished pain and LE sx with unloading. Adult Risk Screening There are no spiritual/cultural practices/values/needs that are important to know Initial Fall Risk Screening: ELENA has fallen in the last 6 months. She has fallen due to tripped over object. Her fall resulted in the following injury: cut head needing kwasi. ELENA does not have a fear of falling. She does not need assistance with sitting, standing or walking. Does not need assistance walking in her home. She does not need assistance in an unfamiliar setting. The patient is not using an assistive device. Pain Scale: On a scale of 0 to 10, the patient rates the pain at 2. Please identify location of pain: Low back/sacral area and L hip (Pain range 0-3/10 pain range). Pain Quality: aching and dull. The pain makes it hard for the patient to do these things: walking and house work. Living Will. Living Will: Living will on file. Did not bring. Healthcare POA: Health care proxy on file. Did not bring. Declaration of Mental Health Treatment: Declaration of mental health treatment on file. Did not bring. Depression/Suicide Screening: During the past 2 weeks, the patient has not felt down, depressed or hopeless. During the past 2 weeks, the patient has not felt little interest or pleasure in doing things. Insurance Insurance reviewed Visit number: 2 1/ [facility] [employer] Ins: 25 visits per year Dx: Sacroillitis M46.1 , S/P SI surgery 3 pins in SI joint on 06/19/2022 Evaluating PT: Wilian Schwartz Subjective Patient reports:. Patient reports that her pain levels today in L calf and R low back, pain levels of 2/10. Precautions: Fall Risk: none PMH: hx of CA Non-hodgkins lymphoma (pt is currently CA free), R TKR, L shoulder scope 11/2021. Precautions: [facility] precautions (No lifting > 10#, no excessive bending or twisting) due to s/p SI surgery on 06/19/2022 with 3 permanent pins for her SI joint. Treatment Time in clinic started at 12:25 Time in clinic ended at 1:10 Total time in clinic is 45 minutes. Total timed code time is 43 minutes. Aquatic Therapy (96090): timed minutes 43, units 3 . All exercises preformed in 70-75% unloading unless noted TrA x10 5? hold/instruction (review) Side Stepping 3 laps Hip flex x10 Hip abd x10 Alt december x10 Squats x10 Heel raises x10 Paddles with TrA Level 1 -flex/ext, push/pull, abd/add, H abd/add 100% Unloading with LG noodle and B UE support -bike 5? -abd/add 5? -hang 5? Gradual exit 3? . 'Scores and Scales' Signatures Electronically signed by : Laya Gomez PTA; Aug 05 2022 1:06PM EST (Author) Electronically signed by : Jaswinder Schwartz, PT; Aug 05 2022 4:45PM EST Normal [facility] PT Progress Noteon 2 PT Progress Note No report was sent Normal [facility] Therapy Communicationon 07-24 Therapy Communication Message ELENA HARTSEL no showed today . Patient no showed today. Called last week and patient said that her father had just . JW. Signatures Electronically signed by : Laya Gomez PTA; Aug 03 2022 11:54AM EST (Author) Normal [facility] PT Progress Noteon 2 PT Progress Note No report was sent Normal [facility] Therapy Communicationon Therapy Communication Message ELENA HARTSEL canceled today . Patient's father and patient cancelled appointment. JW. Signatures Electronically signed by : Laya Gomez PTA; Jul 29 2022 12:06PM EST (Author) Normal [facility] Therapy Communication No report was sent Normal [facility] PT Initial Evaluationon 09-2 PT Initial Evaluation Therapy Diagnosis Assessed Sacroiliitis (720.2) (M46.1) Plan of Care Goals: Goals set and discussed today. LTG's: 1) Improve Lumbar AROM from Villanueva 40% Ext and 35% b/l SB to Villanueva <= 25% in all planes of deficit in order to facilitate improved gait and mobility. 4-6 weeks 2) Improve Core and L hip/knee strength from >= 4/5 to >= 4+/5 throughout in order to facilitate safe gait and mobility. 4-6 weeks 3) Improve Modified Oswestry score by >= 5 points in order to improve QOL. 4-6 weeks 4) Improve LBP from 3/10 to <= 0-2 /10 with activity in order to improve QOL. 4-6 weeks 5) Pt will be able to walk longer distances, stand >= 30-40 min, lift/carry objects and perform standing activity in the home without significant limitation 4-[address]) Pt/caregiver will be I and consistent with HEP in order to maximize strength and flexibility. 2-3 weeks Planned interventions include: aquatic therapy, cryotherapy, education/instruction, home program, manual therapy and therapeutic exercises . Focus on core strength and gentle ROM/flexibility ex's. Aquatic treatment for 5 weeks and 1 week land based. Frequency and duration: 2 time(s) a week, for 6 weeks, for 12 visits. Potential to achieve rehab goals is good Plan of care was developed with input and agreement by the patient. Assessment The pt presents with Medical Dx of Sacroillitis, S/P SI surgery with 3 permanent pins on 06/19/2022. Pt presents with the following deficits: increased pain, decreased strength, ROM, flexibility, functional movement of LB and ability to lift objects. Pt would benefit from PT services in order to improve on these deficits and to maximize strength and ability for functional activity/mobility. Clinical Presentation: Evolving with changing characteristics. Level of Complexity: low Problem List: activity limitations, ADLs/IADLs/self care skills, decreased knowledge of HEP, pain, range of motion/joint mobility and strength. Reason For Visit Initial Evaluation. Referred by: Dr. Sigala Adult Risk Screening There are no spiritual/cultural practices/values/needs that are important to know Initial Fall Risk Screening: ELENA has fallen in the last 6 months. She has fallen due to tripped over object. Her fall resulted in the following injury: cut head needing kwasi. ELENA does not have a fear of falling. She does not need assistance with sitting, standing or walking. Does not need assistance walking in her home. She does not need assistance in an unfamiliar setting. The patient is not using an assistive device. Pain Scale: On a scale of 0 to 10, the patient rates the pain at 0. Please identify location of pain: Low back/sacral area and L hip (Pain range 0-3/10 pain range). Pain Quality: aching and dull. The pain makes it hard for the patient to do these things: walking and house work. Living Will. Living Will: Living will on file. Did not bring. Healthcare POA: Health care proxy on file. Did not bring. Declaration of Mental Health Treatment: Declaration of mental health treatment on file. Did not bring. Depression/Suicide Screening: During the past 2 weeks, the patient has not felt down, depressed or hopeless. During the past 2 weeks, the patient has not felt little interest or pleasure in doing things. Insurance Insurance reviewed Visit number: 1 Medical [employer] Ins: 25 visits per year Dx: Sacroillitis M46.1 , S/P SI surgery 3 pins in SI joint on 06/19/2022 Evaluating PT: Wilian Schwartz Subjective Current Episode of Functional Impairment and/or Pain Date of onset: 06/19/2022 Date of surgery: 06/19/2022 Mechanism of Injury:. The pt reports that she had SI surgery on 06/19/2022 and that she had 3 pins placed in her SI joint with the surgery. The pt reports that her LB/SI area feels very good since surgery with very minimal pain/discomfort rated at 0-3/10. The pt reports that she has universal back precautions including: no heavy lifting > 10#, minimize bending and twisting motions. The pt reports increased standing time > 20-25 min and walking longer distances can cause increased pain if she over does it but that nothing else really seems to bother it at this time. Pt reports that rest and advil help with the pain. Current Medical Management: medications for current condition: . Precautions: Fall Risk: none PMH: hx of CA Non-hodgkins lymphoma (pt is currently CA free), R TKR, L shoulder scope 11/2021. Precautions: [facility] Back precautions (No lifting > 10#, no excessive bending or twisting) due to s/p SI surgery on 06/19/2022 with 3 permanent pins for her SI joint. Functional Assessment Prior level of function: Pt is I with all ADL's and IADL's prior. Functional limitations: standing , walking and lifting . Patient stated goal(s) for treatment include: increasing strength . Improve core strength to be able to be more active with yard work and gardening. Work Status: retired. Current Status: improving. Patient Awarene (more content not included)... Normal [facility] URINE CULTUREon 06-09-2022 Bacteria identified Cx Nom (Unsp spec) NO PATHOGENS ISOLATED [facility] Comment on above: Testing performed at [place], [place] [address] Leukocyte esterase+Nitrite Test strip Ql (U) Positive [facility] Comment on above: NITRITE NEGATIVE Service comment (Unsp spec) [Interp] 06/09/2022 [facility] Comment on above: FINAL SPECIMEN DESCRIPTION URINE CLEAN CATCH [facility] POCT URINALYSIS DIPSTICK AUT OMATED W/O SCOPon 04-16-2022 Amorphous sediment LM Ql (Urine sed) [facility] Appearance (U) clear [facility] Bacteria LM Ql (Urine sed) [facility] Bilirubin Ql (U) Negative [facility] Casts LM.LPF (Urine sed) [#/Area] [facility] Color (U) yellow [facility] Crystals LM Nom (Urine sed) [facility] Epithelial cells.squamous LM.HPF (Urine sed) [#/Area] [facility] Flow cytometry specialist review Brian (Unsp spec) [Interp] [facility] Glucose Auto test strip (U) [Mass/Vol] Negative mg/dL [facility] Ketones [Mass/Vol] Negative mg/dL [facility] Leukocyte esterase Qn (U) [facility] Leukocyte esterase Test strip Ql (U) Negative [facility] Nitrite Ql (U) Negative [facility] pH (U) 6.5 [pH] [facility] Protein Ql (U) Negative mg/dL [facility] RBC LM.HPF (Urine sed) [#/Area] [facility] RBC Ql (U) Negative [facility] Specific gravity (U) [Rel density] 1.010 [facility] Transitional cells LM Ql (Urine sed) [facility] Urobilinogen Qn (U) 0.2 [facility] WBC LM.HPF (Urine sed) [#/Area] [facility] CT CERVICAL SPINE WITHOUT CO NTRASTon 03-31-2022 CT CERVICAL SPINE WITHOUT CONTRAST EXAMINATION: CT CERVICAL SPINE WITHOUT CONTRAST HISTORY: neck pain Injury/Trauma or Illness?:Injury/Trauma How long have you had these symptoms (acute/chronic)?:Acute Reason for exam?:fall, laceration to rt side of head. no neck complaints pt intoxicated, best images possible Type of Exam?:Initial S00.03XA Scalp hematoma, initial encounter COMPARISON: None available. TECHNIQUE: Helical CT images were performed of the cervical spine without intravenous contrast. Dose reduction techniques were achieved by using automated exposure control and/or adjustment of mA and/or kV according to patient size and/or use of iterative reconstruction technique. FINDINGS: [employer] ASS[employer]ATE RADIOGRAPH: Unremarkable. MINERALIZATION: Normal. CRANIOCERVICAL AND ATLANTOAXIAL ARTICULATIONS: Intact with no traumatic subluxation. There is a 4 mm sclerotic lesion at T2 on the left, image 72. VERTEBRAL BODIES: Normal height with no acute compression fracture. DISC SPACES: Mild disc space narrowing at C5-C6 and C6-C7 consistent with degenerative changes. ALIGNMENT: Likely degenerative related grade 1 anterolisthesis at C3-C4. POSTERIOR ELEMENTS: Intact. ODONTOID PROCESS: Intact. VISUALIZED SKULL BASE: Unremarkable. SPINAL CANAL/NEURAL FORAMEN: There is severe facet arthropathy with uncovertebral hypertrophy at C3-C4 on the right, associated with severe neural foraminal stenosis. There is no significant canal stenosis. The UPPER THORAX: Mild emphysematous changes with a 4 mm nodular density at the right lung apex on image 72. There is also a 5 mm nodular density in left upper lobe on image 78. SOFT TISSUES OF THE NECK: Unremarkable. IMPRESSION: 1. No acute fracture or subluxation. 2. Degenerative changes as described above including severe right-sided neural foraminal stenosis at C3-C4. 3. Small sclerotic lesion at T2 which is indeterminate but favors a benign island in the absence of any history of malignancy. 4. Emphysema at the lung apices with small pulmonary nodules. Recommend follow-up dedicated chest CT. SAY/mjr Workstation ID: [id number] Dictated by: ANNIE KNUTSON on TueMar 31, 2022 10:47:06 PM EDT Transcribed by: MEGAN LINN on TueMar 31, 2022 10:50:36 PM EDT Finalized by: ANNIE KNUTSON on TueApr 01, 2022 12:09:22 AM EDT [facility] Comment on above: Order Comment: Injur y/Trauma or Illness?:Injury/Trauma How long have you had these symptoms (acute/chronic)?:Acute Reason for exam?:fall, laceration to rt side of head. no neck complaints pt intoxicated, best images possible Type of Exam?:Initial Mechanism of injury?:fall CT HEAD OR BRAIN WITHOUT CON TRASTon 03-31-2022 CT HEAD OR BRAIN WITHOUT CONTRAST EXAMINATION: CT OF THE BRAIN. HISTORY: head trauma COMPARISON: None. TECHNIQUE: Axial CT images were acquired from the skull base to the vertex without the use of intravenous contrast. Dose reduction techniques were achieved by using automated exposure control and/or adjustment of mA and/or kV according to patient size and/or use of iterative reconstruction technique. FINDINGS: Orbital structures are intact. Paranasal sinuses and mastoid air cells are clear. Right parietal soft tissue swelling. There is no evidence for intracranial hemorrhage, mass effect, or hydrocephalus. No extra-axial collection or midline shift is identified. The brain parenchyma is of normal attenuation. Ventricles and cisternal spaces are age appropriate. Carotid vascular calcifications noted. IMPRESSION: 1. No acute intracranial abnormality. Workstation ID: [id number] Dictated by: EFRAIN ESTES on TueMar 31, 2022 10:14:00 PM EDT Transcribed by: EFRAIN ESTES on TueMar 31, 2022 10:14:00 PM EDT Finalized by: EFRAIN ESTES on TueMar 31, 2022 10:14:00 PM EDT [facility] Comment on above: Order Comment: Injur y/Trauma or Illness?:Injury/Trauma How long have you had these symptoms (acute/chronic)?:Acute Reason for exam?:fall, laceration to rt side of head pt intoxicated, best images possible Type of Exam?:Initial Mechanism of injury?:fall POCT URINALYSIS DIPSTICK AUT OMATED W/O SCOPon 03-23-2022 Amorphous sediment LM Ql (Urine sed) [facility] Appearance (U) clear [facility] Bacteria LM Ql (Urine sed) [facility] Bilirubin Ql (U) Negative [facility] Casts LM.LPF (Urine sed) [#/Area] [facility] Color (U) yellow [facility] Crystals LM Nom (Urine sed) [facility] Epithelial cells.squamous LM.HPF (Urine sed) [#/Area] [facility] Flow cytometry specialist review Brian (Unsp spec) [Interp] [facility] Glucose Auto test strip (U) [Mass/Vol] Negative mg/dL [facility] Interpretation and review of laboratory results Normal [facility] Ketones [Mass/Vol] Negative mg/dL [facility] Leukocyte esterase Qn (U) [facility] Leukocyte esterase Test strip Ql (U) Negative [facility] Nitrite Ql (U) Negative [facility] pH (U) 7.0 [pH] [facility] Protein Ql (U) Negative mg/dL [facility] RBC LM.HPF (Urine sed) [#/Area] [facility] RBC Ql (U) Negative [facility] Specific gravity (U) [Rel density] 1.020 [facility] Transitional cells LM Ql (Urine sed) [facility] Urobilinogen Qn (U) 0.2 [facility] WBC LM.HPF (Urine sed) [#/Area] [facility] [place] Unspecified body regionon 03-02-2022 Image Storage This order is to facilitate the storage of the image. [facility] POCT URINALYSIS DIPSTICK AUT OMATED W/O SCOPon 01-27-2022 Amorphous sediment LM Ql (Urine sed) [facility] Appearance (U) CLEAR [facility] Bacteria LM Ql (Urine sed) [facility] Bilirubin Ql (U) Negative [facility] Casts LM.LPF (Urine sed) [#/Area] [facility] Color (U) YELLOW [facility] Crystals LM Nom (Urine sed) [facility] Epithelial cells.squamous LM.HPF (Urine sed) [#/Area] [facility] Flow cytometry specialist review Brian (Unsp spec) [Interp] [facility] Glucose Auto test strip (U) [Mass/Vol] Negative mg/dL [facility] Ketones [Mass/Vol] Negative mg/dL [facility] Leukocyte esterase Qn (U) [facility] Leukocyte esterase Test strip Ql (U) Negative [facility] Nitrite Ql (U) Negative [facility] pH (U) 7.0 [pH] [facility] Protein Ql (U) Negative mg/dL [facility] RBC LM.HPF (Urine sed) [#/Area] [facility] RBC Ql (U) Negative [facility] Specific gravity (U) [Rel density] 1.015 [facility] Transitional cells LM Ql (Urine sed) [facility] Urobilinogen Qn (U) 0.2 [facility] WBC LM.HPF (Urine sed) [#/Area] [facility] XR Shoulder Left 2+ Views (S tandakindra)Ordered By: Asad Sagastume on 02-13-2021 Normal alignment without fracture or dislocation. Mild developing osteoarthritic changes at the glenohumeral and acromioclavicular level. [facility]/w Workstation ID: [id number] [facility] EXAMINATION: XR SHOULDER LEFT 2+ VIEWS (STANDARD) 02/13/2021 3:50 pm HISTORY: ORDERING SYSTEM PROVIDED HISTORY: shoulder pain, TECHNOLOGIST PROVIDED HISTORY: Illness/Other Reason for exam: shoulder pain Cancer History: n Surgery, RadiationHistory: n Encounter Type: Initial Additional signs and symptoms: loss of rom ORDERING SYSTEM PROVIDED DIAGNOSIS CODES: S43.402A Sprain of left shoulder, unspecified shoulder sprain type, initial encounter COMPARISON: None. TECHNIQUE: Internal and external rotated views and scapular Y projection. FINDINGS: There is no evidence of fracture or dislocation. Glenohumeral and acromioclavicular alignment is satisfactory. Minimal arthritic lipping is seen at the glenoid and the AC joint level. No soft tissue calcifications are seen. [facility] Interface, Rad In Fu ji Speechq - 02/13/2021 4:26 PM EDT EXAMINATION: XR SHOULDER LEFT 2+ VIEWS (STANDARD) 02/13/2021 3:50 pm HISTORY: ORDERING SYSTEM PROVIDED HISTORY: shoulder pain, TECHNOLOGIST PROVIDED HISTORY: Illness/Other Reason for exam: shoulder pain Cancer History: n Surgery, RadiationHistory: n Encounter Type: Initial Additional signs and symptoms: loss of rom ORDERING SYSTEM PROVIDED DIAGNOSIS CODES: S43.402A Sprain of left shoulder, unspecified shoulder sprain type, initial encounter COMPARISON: None. TECHNIQUE: Internal and external rotated views and scapular Y projection. FINDINGS: There is no evidence of fracture or dislocation. Glenohumeral and acromioclavicular alignment is satisfactory. Minimal arthritic lipping is seen at the glenoid and the AC joint level. No soft tissue calcifications are seen. IMPRESSION: Normal alignment without fracture or dislocation. Mild developing osteoarthritic changes at the glenohumeral and acromioclavicular level. LR/jcw Workstation ID: [id number] [facility] CT Coronary Artery Calcium S core - JUDAHon 07-27-2019 Calcium [Mass/Vol] Exam Date/Time: 07/27/2019 08:45 EDT Reason for Exam: SCREENING FOR HEART DISEASE Report STUDY: CT Coronary Artery Calcium Score - JUDAH; 07/27/2019 8:45 am INDICATION: SCREENING FOR HEART DISEASE. COMPARISON: None. ACCESSION NUMBER(S): [id number] ORDERING CLINICIAN: Delilah Calderon TECHNIQUE: Using prospective ECG gating, CT scan of the coronary arteries was performed without intravenous contrast. Coronary calcium scoring was performed according to the method of Agatston. FINDINGS: The score and distribution of calcium in the coronary arteries is as follows: LM 0, LAD 5,2 square mm LCx 0, RCA 0, Total 5 The visualized mid/lower ascending thoracic aorta measures 3.3 cm in diameter. The visualized descending thoracic aorta is within normal limits for course and caliber. The heart is within normal limits for size. No pericardial effusion is present. No gross mediastinal lymphadenopathy is identified. There is no focal infiltrate, pleural effusion or pneumothorax identified. No discrete pulmonary nodules or masses are seen within the visualized lungs. IMPRESSION: 1. Coronary artery calcium score of 5, which places the patient in the low risk category, as below. Coronary artery calcium scoring may be helpful in predicting the risk for future coronary heart disease events. According to the [place] [employer] Clinical Expert Consensus Task Force, such testing provides important prognostic information in patients with more than one coronary heart disease risk factor. The coronary artery calcium score correlates with the annual risk of a non-fatal myocardial infarction or coronary heart disease . Exam Date/Time: 07/27/2019 08:45 EDT Report Coronary artery score Annual Risk 0-99 0.4% 100-399 1.3% >400 2.4% These three breakpoints correspond to lower, intermediate and high risk states for future coronary events. Such information should be used, along with appropriate clinical judgment, to make decisions regarding the intensity of risk factor management strategies to treat blood lipids and to modify other non-lipid coronary risk factors. Reference: Herriman P et al. Circulation. 2007; 115:402-426 FINAL REPORT Dictated: 07/27/2019 1:38 pm Janes Frederick MD Signed (Electronic Signature): 07/27/2019 1:38 pm Signed by: Janes Frederick MD Technologist: MM Normal [facility] Blood Glucose , Office ([phone])Ordered By: Tracy Joy on 06-10-2017 Glucose Glucometer molar conc (BldC) 160 1 Normal [facility] Work Phone: HgA1C , Office ([phone])Ordere d By: Tracy Joy on 06-10-2017 Hemoglobin A1c/Hemoglobin.total mass fraction (Bld) 5.8 % Normal 4.6 - 7.1 [facility] Work Phone: Fecal Occult Blood , Office ([phone])Ordered By: Abdifatah Michele on 02-15-2017 Hemoglobin.gastroint estinal Ql (St) Negative Normal [facility] Work Phone: Vitamin B-12 (cyanocobalamin ) ([phone])Ordered By: Childcare Attendant on 07-23-2015 Cobalamin (Vitamin B12) mass conc 482 pg/mL Normal [id number] [facility] Work Phone: Comment on above: PATIENT NOT FASTINGP ERFORMED BY: [facility] [id number] [facility] [id number] Information: [id number] Blood Glucose , Office ([phone])Ordered By: EVA Charlton on 09-03-2013 Glucose Glucometer molar conc (BldC) 122 1 Normal [facility] Work Phone: HgA1C , Office ([phone])Ordere d By: EVA Charlton on 09-03-2013 Hemoglobin A1c/Hemoglobin.total mass fraction (Bld) 5.4 % Normal 4.6 - 7.1 [facility] Work Phone: HgA1C , Office ([phone])Ordere d By: Myrtle Kay on 03-01-2013 Hemoglobin A1c/Hemoglobin.total mass fraction (Bld) 5.8 % Normal 4.6 - 7.1 [facility] Work Phone: Rapid Strep Test, Office ([phone])Ordered By: EVA Charlton on 02-23-2013 S. pyogenes Ag IA Ql (Unsp spec) Negative Normal [facility] Work Phone: Urinalysis, Office ([phone])on 11-27-2012 Bilirubin Ql (U) Negative Normal [facility] Work Phone: Glucose Test strip mass conc (U) Negative Normal [facility] Work Phone: Hemoglobin Ql (U) Hemolyzed Trace Normal Co [facility] Work Phone: Ketones Ql (U) Negative Normal [facility] Work Phone: Leukocyte esterase Test strip Ql (U) Negative Normal [facility] Work Phone: Nitrite Ql (U) Negative Normal [facility] Work Phone: pH (U) 6.0 [pH] Normal [facility] Work Phone: Protein Ql (U) 30 mg/dL Normal [facility] Work Phone: Specific gravity Relative Density (U) 1.015 1 Normal [facility] Work Phone: Urobilinogen mass/time (24H U) Normal Normal [facility] Work Phone: CALCIFIDIOL ([phone]) VIT D 25 Ordered By: Childcare Attendant on 10-05-2012 25-Hydroxyvitamin D2+25-Hydroxyvitamin D3 mass conc 46.4 ng/mL Normal 30.0-100.0 [facility] Work Phone: Comment on above: Vitamin D deficiency has been defined by the [employer] of[employer] and an Endocrine Society practice guideline as alevel of serum 25-OH vitamin D less than 20 ng/mL (1,2).The Endocrine Society went on to further define vitamin Dinsufficiency as a level between 21 and 29 ng/mL (2).1. IOM ([employer]). 2010. Dietary reference intakes for calcium and D. [place]: The National Academies Press.2. Mirza MF, Roula NC, Horacio GUERRERO, et al. Evaluation, treatment, and prevention of vitamin D deficiency: an Endocrine Society clinical practice guideline. JCEM. 2010; 96(7):1911-30. check 2-4 weeks; PAT IENT NOT FASTINGPERFORMED BY: CB [facility] [id number] [place] [id number] CBC with manual diff ([id number]) Ordered By: Childcare Attendant on 10-05-2012 Basophils #/vol (Bld) 0.0 {x10E3/uL} Normal 0.0-0.2 [facility] Work Phone: Comment on above: PATIENT NOT FASTINGP ERFORMED BY: CB [facility] [id number] RoadDublin [place] [id number] Information: [id number] Basophils/100 WBC (Bld) 1 % Normal 0-3 [facility] Work Phone: Comment on above: PATIENT NOT FASTINGP ERFORMED BY: CB [facility] [id number] [place] [id number] Information: [id number] Eosinophils #/vol (Bld) 0.1 {x10E3/uL} Normal 0.0-0.4 [facility] Work Phone: Comment on above: PATIENT NOT FASTINGP ERFORMED BY: CB [facility] Gsjwss78[address] Ty RoadDublin [place] [id number] Information: [id number] Eosinophils/100 WBC (Bld) 1 % Normal 0-7 [facility] Work Phone: Comment on above: PATIENT NOT FASTINGP ERFORMED BY: CB [facility] [id number] Ty RoadDublin [place] [id number] Information: [id number] Erythrocyte distribution width Ratio (RBC) 13.6 % Normal 12.3-15.4 [facility] Work Phone: Comment on above: PATIENT NOT FASTINGP ERFORMED BY: JOB Pritchett Fmhgkc2362 [facility] [id number] Information: [id number] Hematocrit Volume Fraction (Bld) 47.3 % Abnormal 34.0-46.6 [facility] Work Phone: Comment on above: PATIENT NOT FASTINGP ERFORMED BY: [address] [id number] Information: [id number] Hemoglobin mass conc (Bld) 16.2 g/dL Abnormal 11.1-15.9 [facility] Work Phone: Comment on above: PATIENT NOT FASTINGP ERFORMED BY: [address] [id number] Information: [id number] Immature granulocytes #/vol (Bld) 0.0 {x10E3/uL} Normal 0.0-0.1 [facility] Work Phone: Comment on above: PATIENT NOT FASTINGP ERFORMED BY: JOB [place] [id number] [facility] [id number] Information: [id number] Immature granulocytes/100 WBC (Bld) 0 % Normal 0-2 [facility] Work Phone: Comment on above: PATIENT NOT FASTINGP ERFORMED BY: [place] [id number] [facility] [id number] Information: [id number] Lymphocytes #/vol (Bld) 1.8 {x10E3/uL} Normal 0.7-4.5 [facility] Work Phone: Comment on above: PATIENT NOT FASTINGP ERFORMED BY: [address] [id number] Information: [id number] Lymphocytes/100 WBC (Bld) 27 % Normal 14-46 [facility] Work Phone: Comment on above: PATIENT NOT FASTINGP ERFORMED BY: JOB ZabalaK[place] [id number] [facility] [id number] Information: [id number] MCH Entitic mass (RBC) 33.5 pg Abnormal 26.6-33.0 [facility] Work Phone: Comment on above: PATIENT NOT FASTINGP ERFORMED BY: [address] [id number] Information: [id number] MCHC mass conc (RBC) 34.2 g/dL Normal 31.5-35.[address] [facility] Internal Medicine Work Phone: Comment on above: PATIENT NOT FASTINGP ERFORMED BY: [address] [id number] Information: [id number] MCV Entitic volume (RBC) 98 fL Abnormal 79-97 [facility] Work Phone: Comment on above: PATIENT NOT FASTINGP ERFORMED BY: [address] [id number] Information: [id number] Monocytes #/vol (Bld) 0.7 {x10E3/uL} Normal 0.1-1.0 [facility] Work Phone: Comment on above: PATIENT NOT FASTINGP ERFORMED BY: [place] [id number] [facility] [id number] Information: [id number] Monocytes/100 WBC (Bld) 11 % Normal 4-13 [facility] Work Phone: Comment on above: PATIENT NOT FASTINGP ERFORMED BY: [place] [id number] [facility] [id number] Information: [id number] Neutrophils #/vol (Bld) 4.0 {x10E3/uL} Normal 1.8-7.8 [facility] Work Phone: Comment on above: PATIENT NOT FASTINGP ERFORMED BY: JOB Mishra [facility] [id number] Information: [id number] Neutrophils/100 WBC (Bld) 60 % Normal 40-74 [facility] Work Phone: Comment on above: PATIENT NOT FASTINGP ERFORMED BY: JOB Cornejo6370 [facility] [id number] Information: [id number] Platelets #/vol (Bld) 188 {x10E3/uL} Normal 140-415 [facility] Work Phone: Comment on above: PATIENT NOT FASTINGP ERFORMED BY: JOB Pritchett Kvsgvr3459 [facility] [id number] Information: [id number] RBC #/vol (Bld) 4.84 {x10E6/uL} Normal 3.77-5.[address] [facility] Internal Medicine Work Phone: Comment on above: PATIENT NOT FASTINGP ERFORMED BY: JOB Bucknerlin6370 [facility] [id number] Information: [id number] WBC #/vol (Bld) 6.6 {x10E3/uL} Normal 4.0-10.5 [facility] Internal Medicine Work Phone: Comment on above: PATIENT NOT FASTINGP ERFORMED BY: JOB Pritchett Homesj9190 [facility] [id number] Information: [id number] Metabolic Panel, Basic (8004 8)Ordered By: Childcare Attendant on 10-05-2012 Calcium mass conc 9.8 mg/dL Normal 8.7-10.2 [facility] Internal Medicine Work Phone: Comment on above: 2-4 weeks before fol low up; PATIENT NOT FASTINGPERFORMED BY: JOB Pritchett Oxbgju9230 [facility] [id number] Information: [id number],2ND ORDER NO DRAW F EE Chloride molar conc 96 mmol/L Abnormal 97-108 Compr ehensive [facility] Medicine Work Phone: Comment on above: 2-4 weeks before fol low up; PATIENT NOT FASTINGPERFORMED BY: JOB LabCojamison Tfcqnu1447 [facility] [id number] Information: [id number],2ND ORDER NO DRAW F EE CO2 molar conc 27 mmol/L Normal 20-32 Comprehens radha Internal Medicine Work Phone: Comment on above: 2-4 weeks before fol low up; PATIENT NOT FASTINGPERFORMED BY: JOB [facility] Cxktqb4775 [facility] [id number] Information: [id number],2ND ORDER NO DRAW F EE Creatinine mass conc 0.73 mg/dL Normal 0.57-1.[address] [facility] Internal Medicine Work Phone: Comment on above: 2-4 weeks before fol low up; PATIENT NOT FASTINGPERFORMED BY: JOB LabCojamison BucknerQbxwxk4985 [facility] [id number] Information: [id number],2ND ORDER NO DRAW F EE GFR/1.73 sq M predicted among blacks CKD-EPI vol rate/area (S/P/Bld) 108 mL/min/1.73 Normal Comprehensiv e Internal Medicine Work Phone: Comment on above: 2-4 weeks before fol low up; PATIENT NOT FASTINGPERFORMED BY: JOB LabCojamison Voxhpg4586 [facility] [id number] Information: [id number],2ND ORDER NO DRAW F EE GFR/1.73 sq M predicted among non-blacks CKD-EPI vol rate/area (S/P/Bld) 94 mL/min/1.73 Normal [facility] Work Phone: Comment on above: 2-4 weeks before fol low up; PATIENT NOT FASTINGPERFORMED BY: JOB [facility] Alznhb2116 [facility] [id number] Information: [id number],2ND ORDER NO DRAW F EE Glucose mass conc 122 mg/dL Abnormal 65-99 Compreh ensive [facility] Work Phone: Comment on above: 2-4 weeks before fol low up; PATIENT NOT FASTINGPERFORMED BY: JOB Cornejo6370 [facility] [id number] Information: C41147,2ND ORDER NO DRAW F EE Potassium molar conc 3.9 mmol/L Normal 3.5-5.2 Comp rehensive Internal Medicine Work Phone: Comment on above: 2-4 weeks before fol low up; PATIENT NOT FASTINGPERFORMED BY: JOB Bucknerlin6370 [facility] [id number] Information: [id number],2ND ORDER NO DRAW F EE Sodium molar conc 139 mmol/L Normal 134-144 Compreh ensive [facility] Work Phone: Comment on above: 2-4 weeks before fol low up; PATIENT NOT FASTINGPERFORMED BY: JOB Bucknerlin6370 [facility] [id number] Information: Y88084,2ND ORDER NO DRAW F EE Urea nitrogen mass conc 12 mg/dL Normal 6-24 [facility] Work Phone: Comment on above: 2-4 weeks before fol low up; PATIENT NOT FASTINGPERFORMED BY: JOB [address] [id number] Information: U11035,2ND ORDER NO DRAW F EE Urea nitrogen/Creatinine mass ratio 16 mg/mg Normal 9-23 [facility] Work Phone: Comment on above: 2-4 weeks before fol low up; PATIENT NOT FASTINGPERFORMED BY: JOB Bucknerlin6370 [facility] [id number] Information: [id number],2ND ORDER NO DRAW F EE Vitamin B-12 (cyanocobalamin ) (29410)Ordered By: Childcare Attendant on 10-05-2012 Cobalamin (Vitamin B12) mass conc 1399 pg/mL Abnormal 211-946 [facility] Work Phone: Comment on above: PATIENT NOT FASTINGP ERFORMED BY: JOB Bucknerlin6370 [facility] [id number] Thin prep Pap (36074)Ordered By: Childcare Attendant on 10-19-2011 Microscopic observation Other stain Nom (Unsp spec) . Normal [facility] Work Phone: Comment on above: Source.............C ervical;EndocervicalNo. of containers..01 CYTYC Thin Prep VialPATIENT NOT FASTINGPERFORMED BY: [employer] [address]zq[address] [id number] Information: [id number] Pathology report final diagnosis Narrative [facility] Normal [facility] Work Phone: Comment on above: NEGATIVE FOR INTRAEP ITHELIAL LESION AND MALIGNANCY.Satisfactory for evaluation. Endocervical and/or squamous metaplasticcells (endocervical component) are present.V72.31 ; Routine gynecological examinationErin Tammy Process Camera Operator (ASCP) Source.............C ervical;EndocervicalNo. of containers..01 CYTYC Thin Prep VialPATIENT NOT FASTINGPERFORMED BY: [employer] [id number] Information: [id number] Thin prep Pap (16144) PAPSMR Normal [facility] Work Phone: Comment on above: The Pap smear is a s creening test designed to aid in the detection ofpremalignant and malignant conditions of the uterine cervix. It is not adiagnostic procedure and should not be used as the sole means of detectingcervical cancer. Both false-positive and false-negative reports do occur. .This liquid based ThinPrep(R) pap test was screened with theuse of an image guided system.The HPV DNA reflex criteria were not met with this specimen resulttherefore, no HPV testing was performed. . Source.............C ervical;EndocervicalNo. of containers..01 CYTYC Thin Prep VialPATIENT NOT FASTINGPERFORMED BY: [facility] [address] [id number] Information: [id number] Urinalysis, Office ([id number])Or dered By: Dragan Weiner on 09-03-2010 Bilirubin Ql (U) Negative Normal Comprehe nsive Internal Medicine Work Phone: Glucose Test strip mass conc (U) Negative Normal [facility] Work Phone: Hemoglobin Ql (U) Non Hemolyzed Trace Normal [facility] Work Phone: Ketones Ql (U) Small Normal Comprehens radha [facility] Medicine Work Phone: Leukocyte esterase Test strip Ql (U) Trace Normal [facility] Work Phone: Nitrite Ql (U) Positive Normal Comprehens radha [facility] Work Phone: pH (U) 6.5 [pH] Normal [facility] Work Phone: Protein Ql (U) Trace Normal Comprehens radha [facility] Work Phone: Specific gravity Relative Density (U) 1.020 1 Normal Comprehensi ve Internal Medicine Work Phone: Urobilinogen mass/time (24H U) Normal Normal [facility] Work Phone: Thin prep Pap ([id number])Ordered By: Childcare Attendant on 05-26-2010 Microscopic observation Other stain Nom (Unsp spec) . Normal [facility] Work Phone: Comment on above: LMP / Prev Treat...L EG=[id number]. of containers..01 CYTYC Thin Prep VialPATIENT NOT FASTINGPERFORMED BY: [facility] [address] [id number] Information: ADD [id number] Pathology report final diagnosis Narrative [facility] Normal [facility] Work Phone: Comment on above: NEGATIVE FOR INTRAEP ITHELIAL LESION AND MALIGNANCY.Satisfactory for evaluation. Endocervical and/or squamous metaplasticcells (endocervical component) are present.V72.31 ; Routine gynecological examinationShawn Gutiérrez, Process Camera Operator (ASCP) LMP / Prev Treat...L HJ=[id number]. of containers..01 CYTYC Thin Prep VialPATIENT NOT FASTINGPERFORMED BY: [address] [id number] Information: ADD [id number] Thin prep Pap (57985) [facility] Normal [facility] Work Phone: Comment on above: The Pap smear is a s creening test designed to aid in the detection ofpremalignant and malignant conditions of the uterine cervix. It is not adiagnostic procedure and should not be used as the sole means of detectingcervical cancer. Both false-positive and false-negative reports do occur..The HPV DNA reflex criteria were not met with this specimen resulttherefore, no HPV testing was performed.. LMP / Prev Treat...L RX=[id number]. of containers..01 CYTYC Thin Prep VialPATIENT NOT FASTINGPERFORMED BY: [address] [id number] Information: ADD [id number] Thin prep Pap (14350)Ordered By: Roxann Yan on 12-26-2007 Thin prep Pap (75957) [facility] Normal [facility] Work Phone: Comment on above: NEGATIVE FOR INTRAEP ITHELIAL LESION AND MALIGNANCY.Satisfactory for evaluation. Endocervical and/or squamous metaplasticcells (endocervical component) are present.V72.31 ; Routine gynecological examinationMelody Munoz Process Camera Operator (ASCP) Source.............C ervical;EndocervicalLMP / Prev Treat...KFA=[id number]. of containers..01 CYTYC Thin Prep VialPATIENT NOT FASTINGPERFORMED BY: [employer] [id number] Thin prep Pap (96946) . Normal [facility] Work Phone: Comment on above: Source.............C ervical;EndocervicalLMP / Prev Treat...PSM=[id number]. of containers..01 CYTYC Thin Prep VialPATIENT NOT FASTINGPERFORMED BY: [employer] [address] [id number] Thin prep Pap (99361) PAPSMR [facility] Internal Medicine Work Phone: Comment on above: The Pap smear is a s creening test designed to aid in the detection ofpremalignant and malignant conditions of the uterine cervix. It is not adiagnostic procedure and should not be used as the sole means of detectingcervical cancer. Both false-positive and false-negative reports do occur. .The HPV DNA reflex criteria were not met with this specimen resulttherefore, no HPV testing was performed. . Source.............C ervical;EndocervicalLMP / Prev Treat...RDF=[id number]. of containers..01 CYTYC Thin Prep VialPATIENT NOT FASTINGPERFORMED BY: [employer] [address] [id number] No Panel Information [facility] Vital Signs Date Time Vital Sign Value Performing Clinician Facility 08-09-2025 09:53-0400 Body height 165.1 cm Katina MILTON Work Phone: [facility] 08-09-2025 09:53-0400 Body mass index (BMI) [Ratio] 33.45 kg/m2 Katina MILTON Work Phone: [facility] 08-09-2025 09:53-0400 Body weight 91.17 kg Katina MILTON Work Phone: [facility] 08-09-2025 09:53-0400 Diastolic blood pressure 76 mm[Hg] Katina MILTON Work Phone: [facility] 08-09-2025 09:53-0400 Heart rate 60 /min Katina MILTON Work Phone: [facility] 08-09-2025 09:53-0400 SaO2% (BldA) [Mass fraction] 95 % Katina Frytz LINTER OPERATOR-RESIDENTIAL CARE OFFICER Work Phone: [facility] 08-09-2025 09:53-0400 Systolic blood pressure 154 mm[Hg] Katina Frytz LINTER OPERATOR-RESIDENTIAL CARE OFFICER Work Phone: [facility] 07-09-2025 12:34-0400 Body height 165.1 cm Deepali Hooknatalya RESIDENTIAL CARE OFFICER Work Phone: [facility] 07-09-2025 12:34-0400 Body mass index (BMI) [Ratio] 33.45 kg/m2 Deepali Hooknatalya RESIDENTIAL CARE OFFICER Work Phone: [facility] 07-09-2025 12:34-0400 Body weight 91.17 kg Deepali Kindnatalya RESIDENTIAL CARE OFFICER Work Phone: [facility] 07-09-2025 12:34-0400 Diastolic blood pressure 60 mm[Hg] Deepali Hooknatalya RESIDENTIAL CARE OFFICER Work Phone: [facility] 07-09-2025 12:34-0400 Heart rate 67 /min Deepali Joe RESIDENTIAL CARE OFFICER Work Phone: [facility] 07-09-2025 12:34-0400 SaO2% (BldA) [Mass fraction] 98 % Deepali Hooknatalya RESIDENTIAL CARE OFFICER Work Phone: [facility] 07-09-2025 12:34-0400 Systolic blood pressure 138 mm[Hg] Deepali Kindnatalya RESIDENTIAL CARE OFFICER Work Phone: [facility] 06-27-2025 07:47-0400 Body height 165.1 cm Dawn Uriarte DPM Work Phone: [facility] 06-27-2025 07:47-0400 Body mass index (BMI) [Ratio] 33.48 kg/m2 Dawn Cisnerosk DPM Work Phone: [facility] 06-27-2025 07:47-0400 Body weight 91.26 kg Dawn Uriarte DPM Work Phone: [facility] 06-27-2025 07:47-0400 Diastolic blood pressure 78 mm[Hg] Dawn Uriarte DPM Work Phone: [facility] 06-27-2025 07:47-0400 Heart rate 72 /min Dawn Uriarte DPM Work Phone: [facility] 06-27-2025 07:47-0400 Systolic blood pressure 134 mm[Hg] Dawn Uriarte DPM Work Phone: [employer] [facility] 06-20-2025 13:51-0400 Diastolic blood pressure 78 mm[Hg] Fernie Paredes DO Work Phone: [facility] 06-20-2025 13:51-0400 Systolic blood pressure 152 mm[Hg] Fernie Paredes DO Work Phone: [facility] 06-20-2025 13:26-0400 Body height 165.1 cm Fernie Paredes DO Work Phone: [facility] 06-20-2025 13:26-0400 Body mass index (BMI) [Ratio] 33.48 kg/m2 Fernie Paredes DO Work Phone: [facility] 06-20-2025 13:26-0400 Body temperature 97.2 [degF] Fernie Paredes DO Work Phone: [facility] 06-20-2025 13:26-0400 Body weight 91.26 kg Fernie Paredes DO Work Phone: [facility] 06-20-2025 13:26-0400 Heart rate 65 /min Fernie Brown DO Work Phone: [facility] 06-20-2025 13:26-0400 Respiratory rate 16 /min Fernie Paredes DO Work Phone: [facility] 06-20-2025 13:26-0400 SaO2% (BldA) [Mass fraction] 98 % Fernie Paredes DO Work Phone: [facility] 05-30-2025 11:10-0400 Body height 165.1 cm Dawn Uriarte DPM Work Phone: [facility] 05-30-2025 11:10-0400 Body mass index (BMI) [Ratio] 33.28 kg/m2 Dawn Uriarte DPM Work Phone: [facility] 05-30-2025 11:10-0400 Body weight 90.72 kg Dawn Uriarte DPM Work Phone: [facility] 05-30-2025 11:10-0400 Diastolic blood pressure 82 mm[Hg] Dawn Uriarte DPM Work Phone: [facility] 05-30-2025 11:10-0400 Heart rate 70 /min Dawn Uriarte DPM Work Phone: [facility] 05-30-2025 11:10-0400 Systolic blood pressure 124 mm[Hg] Dawn Uriarte DPM Work Phone: [facility] 05-20-2025 12:42-0400 Body height 165.1 cm Katina William APRN-RESIDENTIAL CARE OFFICER Work Phone: [facility] 05-20-2025 12:42-0400 Body mass index (BMI) [Ratio] 33.28 kg/m2 Katina William APRN-RESIDENTIAL CARE OFFICER Work Phone: [facility] 05-20-2025 12:42-0400 Body weight 90.72 kg Katina William APRN-RESIDENTIAL CARE OFFICER Work Phone: [facility] 05-20-2025 12:42-0400 Diastolic blood pressure 83 mm[Hg] Katina William APRN-RESIDENTIAL CARE OFFICER Work Phone: [facility] 05-20-2025 12:42-0400 Heart rate 71 /min Katina William APRN-RESIDENTIAL CARE OFFICER Work Phone: [facility] 05-20-2025 12:42-0400 SaO2% (BldA) [Mass fraction] 96 % Katina Nataliia LINTER OPERATOR-RESIDENTIAL CARE OFFICER Work Phone: [facility] 05-20-2025 12:42-0400 Systolic blood pressure 186 mm[Hg] Katina William LINTER OPERATOR-RESIDENTIAL CARE OFFICER Work Phone: [facility] 05-16-2025 12:34-0400 Body height 165.1 cm Dawn Mirellaatek DPM Work Phone: [facility] 05-16-2025 12:34-0400 Body mass index (BMI) [Ratio] 33.78 kg/m2 Dawn Swiatek DPM Work Phone: [facility] 05-16-2025 12:34-0400 Body weight 92.08 kg Dawn Swiatek DPM Work Phone: [facility] 05-16-2025 12:34-0400 Diastolic blood pressure 64 mm[Hg] Dawn Vuatek DPM Work Phone: [facility] 05-16-2025 12:34-0400 Heart rate 72 /min Dawn Swiatek DPM Work Phone: [facility] 05-16-2025 12:34-0400 Systolic blood pressure 142 mm[Hg] Dawn Mirellaatek DPM Work Phone: [facility] 05-10-2025 11:03-0400 Body height 165.1 cm Monse Shipley MD Work Phone: [facility] 05-10-2025 11:03-0400 Body mass index (BMI) [Ratio] 33.78 kg/m2 Monse Shipley MD Work Phone: [facility] 05-10-2025 11:03-0400 Body temperature 96.8 [degF] Monse Shipley MD Work Phone: [facility] 05-10-2025 11:03-0400 Body weight 92.08 kg Monse Shipley MD Work Phone: [facility] 05-10-2025 11:03-0400 Diastolic blood pressure 76 mm[Hg] Monse Shipley MD Work Phone: [facility] 05-10-2025 11:03-0400 Heart rate 75 /min Monse Shipley MD Work Phone: [facility] 05-10-2025 11:03-0400 Respiratory rate 18 /min Monse Shipley MD Work Phone: [facility] 05-10-2025 11:03-0400 SaO2% (BldA) [Mass fraction] 99 % Monse Shipley MD Work Phone: [facility] 05-10-2025 11:03-0400 Systolic blood pressure 122 mm[Hg] Monse Shipley MD Work Phone: [facility] 04-05-2025 07:30-0400 Diastolic blood pressure 65 mm[Hg] Geronimo Harper DO Work Phone: [facility] [place] 04-05-2025 07:30-0400 Heart rate 76 /min Geronimo Harper DO Work Phone: [facility] 04-05-2025 07:30-0400 Respiratory rate 17 /min Geronimo Harper DO Work Phone: [facility] 04-05-2025 07:30-0400 SaO2% (BldA) [Mass fraction] 95 % Geronimo Harper DO Work Phone: [facility] 04-05-2025 07:30-0400 Systolic blood pressure 140 mm[Hg] Geronimo Harper DO Work Phone: [facility] [place] 04-05-2025 05:20-0400 Body temperature 97.11 [degF] Geronimo Harper DO Work Phone: [facility] 04-04-2025 21:58-0400 Body height 162.6 cm Geronimo Harper DO Work Phone: [facility] 04-04-2025 21:58-0400 Body mass index (BMI) [Ratio] 34.67 kg/m2 Geronimo Harper DO Work Phone: [facility] 04-04-2025 21:58-0400 Body weight 91.63 kg Geronimo Harper DO Work Phone: [facility] 03-26-2025 15:06-0400 Body height 165.1 cm Fernie Paredes DO [facility] 03-26-2025 15:06-0400 Body mass index (BMI) [Ratio] 33.23 kg/m2 Fernie Paredes DO Work Phone: [facility] 03-26-2025 15:06-0400 Body temperature 98.01 [degF] Fernie Paredes DO Work Phone[facility] 03-26-2025 15:06-0400 Body weight 90.58 kg Fernie Paredes DO Work Phone: [employer] [facility] 03-26-2025 15:06-0400 Diastolic blood pressure 67 mm[Hg] Fernie Paredes DO Work Phone[facility] 03-26-2025 15:06-0400 Heart rate 66 /min Fernie Paredes DO Work Phone: [facility] 03-26-2025 15:06-0400 Respiratory rate 14 /min Fernie Paredes DO Work Phone: [facility] 03-26-2025 15:06-0400 SaO2% (BldA) [Mass fraction] 97 % Fernie Paredes DO Work Phone: [employer] [facility] 03-26-2025 15:06-0400 Systolic blood pressure 137 mm[Hg] Fernie Paredes DO Work Phone: [facility] 02-22-2025 10:46-0400 Body height 165.1 cm Keshawn Nunez MD Work Phone: [facility] 02-22-2025 10:46-0400 Body mass index (BMI) [Ratio] 33.98 kg/m2 Keshawn Nunez MD Work Phone: [facility] 02-22-2025 10:46-0400 Body weight 92.63 kg Keshawn Nunez MD Work Phone: [facility] 02-22-2025 10:46-0400 Diastolic blood pressure 74 mm[Hg] Keshawn Nunez MD Work Phone: [facility] 02-22-2025 10:46-0400 Heart rate 70 /min Keshawn Nunez MD Work Phone: [facility] 02-22-2025 10:46-0400 Respiratory rate 16 /min Keshawn Nunez MD Work Phone: [facility] 02-22-2025 10:46-0400 SaO2% (BldA) [Mass fraction] 99 % Keshawn Nunez MD Work Phone: [facility] 02-22-2025 10:46-0400 Systolic blood pressure 110 mm[Hg] [facility] MD [facility]-05[facility]2025 13:48-0400 Body height 165.1 cm Delilah Ellis Jr., DO Work Phone: [facility] 02-05-2025 13:48-0400 Body mass index (BMI) [Ratio] 34.61 kg/m2 Delilah Ellis Jr. DO [facility] 02-05-2025 13:48-0400 Body weight 94.35 kg Delilah Ellis Jr. DO Work Phone[facility] 02-05-2025 13:48-0400 Diastolic blood pressure 82 mm[Hg] Delilah Ellis Jr. DO Work Phone: [facility] 02-05-2025 13:48-0400 Heart rate 68 /min Delilah Ellis Jr. DO Work Phone: [employer] [facility] 02-05-2025 13:48-0400 SaO2% (BldA) [Mass fraction] 98 % Delilah Ellis Jr., DO Work Phone: [facility] 02-05-2025 13:48-0400 Systolic blood pressure 135 mm[Hg] Delilah Ellis Jr., DO [facility] Phone[facility] 01-14-2025 07:29-0400 Body temperature 98.29 [degF] Delilah Ellis Jr., DO Work Phone[facility] 01-14-2025 07:29-0400 Diastolic blood pressure 67 mm[Hg] Delilah Ellis Jr., DO Work Phone: [facility] 01-14-2025 07:29-0400 Heart rate 73 /min Delilah Ellis Jr. DO Work Phone[facility] 01-14-2025 07:29-0400 Respiratory rate 16 /min Delilah Ellis Jr., DO Work Phone: [facility] 01-14-2025 07:29-0400 SaO2% (BldA) [Mass fraction] 96 % Delilah Ellis Jr., DO [facility] 01-14-2025 07:29-0400 Systolic blood pressure 152 mm[Hg] Delilah Ellis Jr., DO Work Phone: [facility] 01-14-2025 06:54-0400 Body height 165.1 cm Delilah Ellis Jr., DO Work Phone[facility] 01-14-2025 06:54-0400 Body mass index (BMI) [Ratio] 34.28 kg/m2 Delilah Ellis Jr., DO Work Phone[facility] 01-14-2025 06:54-0400 Body weight 93.44 kg Delilah Ellis Jr., DO Work Phone[facility] 12-31-2024 14:25-0400 Body height 165.1 cm Fernie Paredes DO Work Phone: [facility] 12-31-2024 14:25-0400 Body mass index (BMI) [Ratio] 34.31 kg/m2 Fernie Paredes DO Work Phone: [facility] 12-31-2024 14:25-0400 Body temperature 97.3 [degF] Fernie Paredes DO Work Phone: [facility] 12-31-2024 14:25-0400 Body weight 93.53 kg Fernie Paredes DO Work Phone: [facility] 12-31-2024 14:25-0400 Diastolic blood pressure 64 mm[Hg] Fernie Paredes DO Work Phone: [facility] 12-31-2024 14:25-0400 Heart rate 57 /min Fernie Paredes DO Work Phone: [facility] 12-31-2024 14:25-0400 Respiratory rate 16 /min Fernie Paredes DO Work Phone: [facility] 12-31-2024 14:25-0400 SaO2% (BldA) [Mass fraction] 99 % Fernie Paredes DO Work Phone: [facility] 12-31-2024 14:25-0400 Systolic blood pressure 134 mm[Hg] Fernie Paredes DO Work Phone: [facility] 12-26-2024 10:33-0500 Body height 165.1 cm Shi Son Work Phone: [facility] 12-26-2024 10:33-0500 Body mass index (BMI) [Ratio] 34.11 kg/m2 Shi Son Work Phone: [facility] 12-26-2024 10:33-0500 Body weight 92.99 kg Shi Son Work Phone: [facility] 12-25-2024 13:52-0500 Body height 165.1 cm Delilah Ellis Jr., DO Work Phone: [facility] 12-25-2024 13:52-0500 Body mass index (BMI) [Ratio] 34.18 kg/m2 Delilah Ellis Jr., DO Work Phone: [facility] 12-25-2024 13:52-0500 Body weight 93.17 kg Delilah Ellis Jr., DO Work Phone: [facility] 12-25-2024 13:52-0500 Diastolic blood pressure 70 mm[Hg] Delilah Ellis Jr., DO Work Phone: [facility] 12-25-2024 13:52-0500 Heart rate 72 /min Delilah Ellis JrAlix, DO Work Phone: [employer] [facility] 12-25-2024 13:52-0500 SaO2% (BldA) [Mass fraction] 96 % Delilah Ellis Jr., DO Work Phone: [facility] 12-25-2024 13:52-0500 Systolic blood pressure 125 mm[Hg] Delilah Ellis Jr., DO Work Phone: [employer] [facility] 12-05-2024 14:28-0500 Body height 165.1 cm Shi Son Work Phone: [facility] 12-05-2024 14:28-0500 Body mass index (BMI) [Ratio] 35.31 kg/m2 Shi Son Work Phone: [facility] 12-05-2024 14:28-0500 Body weight 96.25 kg Shi Son Work Phone: [facility] 11-13-2024 12:16-0500 Diastolic blood pressure 56 mm[Hg] Gonsalo Blackwood MD Work Phone: [employer] [facility] 11-13-2024 12:16-0500 Heart rate 64 /min Gonsalo Blackwood MD Work Phone: [facility] 11-13-2024 12:16-0500 Respiratory rate 16 /min Gonsalo Blackwood MD Work Phone: [facility] 11-13-2024 12:16-0500 SaO2% (BldA) [Mass fraction] 95 % Gonsalo Blackwood MD Work Phone: [facility] 11-13-2024 12:16-0500 Systolic blood pressure 116 mm[Hg] Gonsalo Blackwood MD Work Phone: [facility] 11-13-2024 07:09-0500 Body temperature 98.1 [degF] Gonsalo Blackwood MD Work Phone: [facility] 11-12-2024 10:00-0500 Body height 165.1 cm Gonsalo Blackwood MD Work Phone: [facility] 11-12-2024 10:00-0500 Body mass index (BMI) [Ratio] 35.23 kg/m2 Gonsalo Blackwood MD Work Phone: [facility] 11-12-2024 10:00-0500 Body weight 96.03 kg Gonsalo Blackwood MD Work Phone: [facility] 11-01-2024 14:53-0500 Diastolic blood pressure 68 mm[Hg] Fernie Brown DO Work Phone: [facility] 11-01-2024 14:53-0500 Systolic blood pressure 130 mm[Hg] Fernie Brown DO Work Phone: [facility] 11-01-2024 14:36-0500 Body height 165.1 cm Fernie Brown DO Work Phone: [facility] 11-01-2024 14:36-0500 Body mass index (BMI) [Ratio] 35.93 kg/m2 Fernie Brown DO Work Phone: [facility] 11-01-2024 14:36-0500 Body temperature 97.11 [degF] Fernie Brown DO Work Phone: [facility] 11-01-2024 14:36-0500 Body weight 97.93 kg Fernie Brown DO Work Phone: [facility] 11-01-2024 14:36-0500 Heart rate 73 /min Fernie Brown DO Work Phone: [facility] 11-01-2024 14:36-0500 Respiratory rate 16 /min Fernie Brown DO Work Phone: [facility] 11-01-2024 14:36-0500 SaO2% (BldA) [Mass fraction] 96 % Fernie Paredes DO Work Phone: [facility] 10-31-2024 13:10-0500 Body mass index (BMI) [Ratio] 36.18 kg/m2 Fernando Davison MD Work Phone: [facility] 10-31-2024 13:10-0500 Body weight 98.61 kg Fernando Davison MD Work Phone: [facility] 10-31-2024 13:10-0500 Diastolic blood pressure 62 mm[Hg] Fernando Davison MD Work Phone: [facility] 10-31-2024 13:10-0500 Heart rate 57 /min Fernando Davison MD Work Phone: [facility] 10-31-2024 13:10-0500 SaO2% (BldA) [Mass fraction] 97 % Fernando Davison MD Work Phone: [facility] 10-31-2024 13:10-0500 Systolic blood pressure 100 mm[Hg] Fernando Davison MD Work Phone: [facility] 10-29-2024 13:52-0500 Body height 165.1 cm Brian Brush RESIDENTIAL CARE OFFICER Work Phone: [facility] 10-29-2024 13:52-0500 Body mass index (BMI) [Ratio] 35.78 kg/m2 Brian Brush RESIDENTIAL CARE OFFICER Work Phone: [facility] 10-29-2024 13:52-0500 Body weight 97.52 kg Brian Brush RESIDENTIAL CARE OFFICER Work Phone: [facility] 10-29-2024 13:52-0500 Diastolic blood pressure 67 mm[Hg] Brian Brush RESIDENTIAL CARE OFFICER Work Phone: [facility] 10-29-2024 13:52-0500 Heart rate 61 /min Brian Brush RESIDENTIAL CARE OFFICER Work Phone: [facility] 10-29-2024 13:52-0500 SaO2% (BldA) [Mass fraction] 94 % Brian Brush RESIDENTIAL CARE OFFICER Work Phone: [facility] 10-29-2024 13:52-0500 Systolic blood pressure 138 mm[Hg] Brian Brush RESIDENTIAL CARE OFFICER Work Phone: [facility] 10-29-2024 10:45-0500 Body temperature 97.11 [degF] Delilah Ellis Jr., DO Work Phone: [employer] [facility] 10-29-2024 10:45-0500 Diastolic blood pressure 70 mm[Hg] Delilah Ellis Jr., DO Work Phone: [facility] 10-29-2024 10:45-0500 Heart rate 52 /min Delilah Ellis Jr., DO [facility] Phone[facility] 10-29-2024 10:45-0500 Respiratory rate 16 /min Delilah Ellis Jr., DO Work Phone: [facility] [facility] 10-29-2024 10:45-0500 SaO2% (BldA) [Mass fraction] 97 % Delilah Ellis Jr., DO Work Phone[facility] 10-29-2024 10:45-0500 Systolic blood pressure 156 mm[Hg] Delilah Ellis Jr., DO Work Phone[facility] 10-29-2024 09:09-0500 Body height 165.1 cm Delilah Ellis Jr., DO Work Phone: [employer] [facility] 10-29-2024 09:09-0500 Body mass index (BMI) [Ratio] 35.78 kg/m2 Delilah Ellis Jr., DO Work Phone: [employer] [facility] 10-29-2024 09:09-0500 Body weight 97.52 kg Delilah Ellis Jr., DO Work Phone[facility] 10-23-2024 08:04-0500 Body height 165.1 cm Delilah Ellis Jr., DO Work Phone: [facility] 10-23-2024 08:04-0500 Body mass index (BMI) [Ratio] 35.91 kg/m2 Delilah Ellis Jr., DO Work Phone: [facility] 10-23-2024 08:04-0500 Body weight 97.89 kg Delilah Ellis Jr., DO [facility] 10-23-2024 08:04-0500 Diastolic blood pressure 60 mm[Hg] Delilah Ellis Jr., DO Work Phone: [facility] 10-23-2024 08:04-0500 Heart rate 52 /min Delilah Ellis Jr. DO [facility] 10-23-2024 08:04-0500 SaO2% (BldA) [Mass fraction] 97 % Delilah Ellis Jr. DO [facility] 10-23-2024 08:04-0500 Systolic blood pressure 115 mm[Hg] Delilah Ellis Jr., DO [facility] 10-09-2024 13:41-0500 Body height 165.1 cm Fernie Reggie DO Work Phone: [facility] 10-09-2024 13:41-0500 Body mass index (BMI) [Ratio] 35.43 kg/m2 Fernie Paredes DO Work Phone: [facility] 10-09-2024 13:41-0500 Body temperature 97.11 [degF] Fernie Paredes DO Work Phone: [facility] 10-09-2024 13:41-0500 Body weight 96.57 kg Fernie Paredes DO Work Phone: [facility] 10-09-2024 13:41-0500 Diastolic blood pressure 68 mm[Hg] Fernie Paredes DO Work Phone: [facility] 10-09-2024 13:41-0500 Heart rate 53 /min Fernie Paredes DO Work Phone: [facility] 10-09-2024 13:41-0500 Respiratory rate 14 /min Fernie Paredes DO Work Phone: [facility] 10-09-2024 13:41-0500 SaO2% (BldA) [Mass fraction] 95 % Fernie Paredes DO Work Phone: [facility] 10-09-2024 13:41-0500 Systolic blood pressure 115 mm[Hg] Fernie Paredes DO Work Phone: [facility] 09-19-2024 10:58-0500 Body height 165.1 cm Naty Bhakta MD Work Phone: [facility] 09-19-2024 10:58-0500 Body mass index (BMI) [Ratio] 36.24 kg/m2 Naty Bhakta MD Work Phone: [facility] 09-19-2024 10:58-0500 Body temperature 97.11 [degF] Naty Bhakta MD Work Phone: [facility] 09-19-2024 10:58-0500 Body weight 98.79 kg Naty Bhakta MD Work Phone: [facility] 09-19-2024 10:58-0500 Diastolic blood pressure 60 mm[Hg] Naty Bhakta MD Work Phone: [facility] Comment on above: manual bp check 09-19-2024 10:58-0500 Heart rate 66 /min Naty Bhakta MD Work Phone: [facility] 09-19-2024 10:58-0500 Respiratory rate 14 /min Naty Bhakta MD Work Phone: [facility] 09-19-2024 10:58-0500 SaO2% (BldA) [Mass fraction] 97 % Naty Bhakta MD Work Phone: [facility] 09-19-2024 10:58-0500 Systolic blood pressure 122 mm[Hg] Naty Bhakta MD Work Phone: [facility] Comment on above: manual bp check 08-30-2024 15:07-0500 Body height 165.1 cm Gonsalo Blackwood MD Work Phone: [facility] 08-30-2024 15:07-0500 Body mass index (BMI) [Ratio] 36.48 kg/m2 Gonsalo Blackwood MD Work Phone: [facility] 08-30-2024 15:07-0500 Body weight 99.43 kg Gonsalo Blackwood MD Work Phone: [facility] 07-10-2024 13:52-0400 Body height 165.1 cm Fernie Paredes DO Work Phone: [facility] 07-10-2024 13:52-0400 Body mass index (BMI) [Ratio] 36.24 kg/m2 Fernie Paredes DO Work Phone: [facility] 07-10-2024 13:52-0400 Body temperature 97.5 [degF] Fernie Paredes DO Work Phone: [facility] 07-10-2024 13:52-0400 Body weight 98.79 kg Fernie Paredes DO Work Phone: [facility] 07-10-2024 13:52-0400 Diastolic blood pressure 60 mm[Hg] Fernie Paredes DO Work Phone: [facility] 07-10-2024 13:52-0400 Heart rate 68 /min Fernie Brown DO Work Phone: [facility] 07-10-2024 13:52-0400 Respiratory rate 14 /min Fernie Paredes DO Work Phone: [facility] 07-10-2024 13:52-0400 SaO2% (BldA) [Mass fraction] 96 % Fernie Paredes DO Work Phone: [facility] 07-10-2024 13:52-0400 Systolic blood pressure 129 mm[Hg] Fernie Paredes DO Work Phone: [facility] 05-22-2024 10:10-0400 Body height 165.1 cm Brian Brush RESIDENTIAL CARE OFFICER Work Phone: [facility] 05-22-2024 10:10-0400 Body mass index (BMI) [Ratio] 35.78 kg/m2 Brian Brush RESIDENTIAL CARE OFFICER Work Phone: [facility] 05-22-2024 10:10-0400 Body weight 97.52 kg Brian Brush RESIDENTIAL CARE OFFICER Work Phone: [facility] 05-22-2024 10:10-0400 Diastolic blood pressure 68 mm[Hg] Brian Brush RESIDENTIAL CARE OFFICER Work Phone: [facility] 05-22-2024 10:10-0400 Heart rate 52 /min Brian Brush RESIDENTIAL CARE OFFICER Work Phone: [facility] 05-22-2024 10:10-0400 SaO2% (BldA) [Mass fraction] 95 % Brian Brush RESIDENTIAL CARE OFFICER Work Phone: [facility] 05-22-2024 10:10-0400 Systolic blood pressure 153 mm[Hg] Brian Brush RESIDENTIAL CARE OFFICER Work Phone: [facility] 05-03-2024 15:37-0400 Diastolic blood pressure 78 mm[Hg] Isreal Sigala MD Work Phone: [facility] 05-03-2024 15:37-0400 Heart rate 79 /min Isreal Sigala MD Work Phone: [facility] 05-03-2024 15:37-0400 Respiratory rate 16 /min Isreal Sigala MD Work Phone: [facility] 05-03-2024 15:37-0400 SaO2% (BldA) [Mass fraction] 94 % Isreal Sigala MD Work Phone: [facility] 05-03-2024 15:37-0400 Systolic blood pressure 170 mm[Hg] Isreal Sigala MD Work Phone: [facility] 05-03-2024 14:55-0400 Body temperature 97.3 [degF] Isreal Sigala MD Work Phone: [facility] 05-03-2024 09:34-0400 Body height 165.1 cm Isreal Sigala MD Work Phone: [facility] 05-03-2024 09:34-0400 Body mass index (BMI) [Ratio] 36.44 kg/m2 Isreal Sigala MD Work Phone: [facility] 05-03-2024 09:34-0400 Body weight 99.34 kg Isreal Sigala MD Work Phone: [facility] 04-17-2024 13:05-0400 Body height 165.1 cm Frenie Paredes DO Work Phone: [facility] 04-17-2024 13:05-0400 Body mass index (BMI) [Ratio] 36.59 kg/m2 Fernie Paredes DO Work Phone: [facility] 04-17-2024 13:05-0400 Body temperature 97.5 [degF] Fernie Paredes DO Work Phone: [facility] 04-17-2024 13:05-0400 Body weight 99.75 kg Fernie Paredes DO Work Phone: [facility] 04-17-2024 13:05-0400 Diastolic blood pressure 60 mm[Hg] Fernie Paredes DO Work Phone: [facility] 04-17-2024 13:05-0400 Heart rate 63 /min Fernie Paredes DO Work Phone: [facility] 04-17-2024 13:05-0400 Respiratory rate 14 /min Fernie Paredes DO Work Phone: [facility] 04-17-2024 13:05-0400 SaO2% (BldA) [Mass fraction] 99 % Fernie Paredes DO Work Phone: [facility] 04-17-2024 13:05-0400 Systolic blood pressure 140 mm[Hg] Fernie Paredes DO Work Phone: [facility] 04-04-2024 13:46-0400 Body height 165.1 cm Avivagiovanny Mera RESIDENTIAL CARE OFFICER Work Phone: [facility] 04-04-2024 13:46-0400 Body mass index (BMI) [Ratio] 36.74 kg/m2 Aviva Samaria RESIDENTIAL CARE OFFICER Work Phone: [facility] 04-04-2024 13:46-0400 Body weight 100.15 kg Avivagiovanny Mera RESIDENTIAL CARE OFFICER Work Phone: [facility] 04-04-2024 13:46-0400 Diastolic blood pressure 80 mm[Hg] Aviva Samaria RESIDENTIAL CARE OFFICER Work Phone: [facility] 04-04-2024 13:46-0400 Heart rate 73 /min Aviva Samaria RESIDENTIAL CARE OFFICER Work Phone: [facility] 04-04-2024 13:46-0400 Respiratory rate 18 /min Aviva Samaria RESIDENTIAL CARE OFFICER Work Phone: [facility] 04-04-2024 13:46-0400 SaO2% (BldA) [Mass fraction] 97 % Aviva Samaria RESIDENTIAL CARE OFFICER Work Phone: [facility] 04-04-2024 13:46-0400 Systolic blood pressure 132 mm[Hg] Aviva Samaria RESIDENTIAL CARE OFFICER Work Phone: [facility] 03-12-2024 14:12-0400 Body height 165.1 cm Aviva Samaria RESIDENTIAL CARE OFFICER Work Phone: [facility] 03-12-2024 14:12-0400 Body mass index (BMI) [Ratio] 36.68 kg/m2 Aviva Samaria RESIDENTIAL CARE OFFICER Work Phone: [facility] 03-12-2024 14:12-0400 Body weight 99.97 kg Aviva Mera CNP Work Phone: [facility] 03-12-2024 14:12-0400 Diastolic blood pressure 64 mm[Hg] Aviva Mera CNP Work Phone: [facility] 03-12-2024 14:12-0400 Heart rate 64 /min Aviva Mera CNP Work Phone: [facility] 03-12-2024 14:12-0400 SaO2% (BldA) [Mass fraction] 98 % Aviva Mera CNP Work Phone: [facility] 03-12-2024 14:12-0400 Systolic blood pressure 128 mm[Hg] Aviva Mera CNP Work Phone: [facility] 01-23-2024 12:46-0400 Body height 165.1 cm Fernie Paredes DO Work Phone: [facility] 01-23-2024 12:46-0400 Body mass index (BMI) [Ratio] 36.28 kg/m2 Fernie Paredes DO Work Phone: [facility] 01-23-2024 12:46-0400 Body temperature 97.39 [degF] Fernie Paredes DO Work Phone: [facility] 01-23-2024 12:46-0400 Body weight 98.88 kg Fernie Paredes DO Work Phone: [facility] 01-23-2024 12:46-0400 Diastolic blood pressure 61 mm[Hg] Fernie Paredes DO Work Phone: [facility] 01-23-2024 12:46-0400 Heart rate 65 /min Fernie Paredes DO Work Phone: [facility] 01-23-2024 12:46-0400 Respiratory rate 18 /min Fernie Paredes DO Work Phone: [facility] 01-23-2024 12:46-0400 SaO2% (BldA) [Mass fraction] 97 % Fernie Paredes DO Work Phone: [facility] 01-23-2024 12:46-0400 Systolic blood pressure 136 mm[Hg] Fernie Paredes DO Work Phone: [facility] 01-10-2024 12:30-0400 Body height 165.1 cm Garry Stephens MD Work Phone: [facility] 01-10-2024 12:30-0400 Body mass index (BMI) [Ratio] 35.45 kg/m2 Garry Stephens MD Work Phone: [facility] 01-10-2024 12:30-0400 Body weight 96.62 kg Garry Stephens MD Work Phone: [facility] 01-06-2024 11:02-0400 Diastolic blood pressure 88 mm[Hg] Aguilar Alexandra RESIDENTIAL CARE OFFICER Work Phone: [facility] 01-06-2024 11:02-0400 Systolic blood pressure 153 mm[Hg] Aguilarsathish Alexandra RESIDENTIAL CARE OFFICER Work Phone: [facility] 01-06-2024 10:56-0400 Body height 165.1 cm Aguilar Alexandra RESIDENTIAL CARE OFFICER Work Phone: [facility] 01-06-2024 10:56-0400 Body mass index (BMI) [Ratio] 35.78 kg/m2 Aguilar Alexandra RESIDENTIAL CARE OFFICER Work Phone: [facility] 01-06-2024 10:56-0400 Body weight 97.52 kg Aguilar Alexandra RESIDENTIAL CARE OFFICER Work Phone: [facility] 01-06-2024 10:56-0400 Heart rate 56 /min Aguilar Alexandra RESIDENTIAL CARE OFFICER Work Phone: [facility] 01-06-2024 10:56-0400 SaO2% (BldA) [Mass fraction] 98 % Aguilar Alexandra RESIDENTIAL CARE OFFICER Work Phone: [facility] 11-08-2023 08:37-0500 Body height 165.1 cm Kandice Christie MD Work Phone: [facility] 11-08-2023 08:37-0500 Body mass index (BMI) [Ratio] 35.49 kg/m2 Kandice Christie MD Work Phone: [facility] 11-08-2023 08:37-0500 Body weight 96.75 kg Kandice Christie MD Work Phone: [facility] 11-08-2023 08:37-0500 Diastolic blood pressure 78 mm[Hg] Kandice Christie MD Work Phone: [facility] 11-08-2023 08:37-0500 Heart rate 72 /min Kandice Christie MD Work Phone: [facility] 11-08-2023 08:37-0500 SaO2% (BldA) [Mass fraction] 94 % Kandice Christie MD Work Phone: [facility] 11-08-2023 08:37-0500 Systolic blood pressure 119 mm[Hg] Kandice Christie MD Work Phone: [facility] 11-02-2023 10:09-0500 Body height 165.1 cm Monse Shipley MD Work Phone: [facility] 11-02-2023 10:09-0500 Body mass index (BMI) [Ratio] 35.51 kg/m2 Monse Shipley MD Work Phone: [facility] 11-02-2023 10:09-0500 Body temperature 97 [degF] Monse Shipley MD Work Phone: [facility] 11-02-2023 10:09-0500 Body weight 96.8 kg Monse Shipley MD Work Phone: [facility] 11-02-2023 10:09-0500 Diastolic blood pressure 64 mm[Hg] Monse Shipley MD Work Phone: [facility] 11-02-2023 10:09-0500 Heart rate 78 /min Monse Shipley MD Work Phone: [facility] 11-02-2023 10:09-0500 Respiratory rate 18 /min Monse Shipley MD Work Phone: [facility] 11-02-2023 10:09-0500 SaO2% (BldA) [Mass fraction] 97 % Monse Shipley MD Work Phone: [facility] 11-02-2023 10:09-0500 Systolic blood pressure 130 mm[Hg] Monse Shipley MD Work Phone: [facility] 10-31-2023 09:56-0500 Diastolic blood pressure 68 mm[Hg] Fernie Paredes DO Work Phone: [facility] 10-31-2023 09:56-0500 Systolic blood pressure 128 mm[Hg] Fernie Paredes DO Work Phone: [facility] 10-31-2023 09:55-0500 Body height 165 cm Fernie Paredes DO Work Phone: [facility] 10-31-2023 09:55-0500 Body mass index (BMI) [Ratio] 35.82 kg/m2 Fernie Paredes DO Work Phone: [facility] 10-31-2023 09:55-0500 Body temperature 97.2 [degF] Fernie Paredes DO Work Phone: [facility] 10-31-2023 09:55-0500 Body weight 97.52 kg Fernie Paredes DO Work Phone: [facility] 10-31-2023 09:55-0500 Heart rate 68 /min Fernie Brown DO Work Phone: [facility] 10-31-2023 09:55-0500 Respiratory rate 14 /min Fernie Brown DO Work Phone: [facility] 10-31-2023 09:55-0500 SaO2% (BldA) [Mass fraction] 98 % Fernie Paredes DO Work Phone: [facility] 10-26-2023 13:54-0500 Body height 165.1 cm Fernando Davison MD Work Phone: [facility] 10-26-2023 13:54-0500 Body mass index (BMI) [Ratio] 35.16 kg/m2 Fernando Davison MD Work Phone: [facility] 10-26-2023 13:54-0500 Body weight 95.84 kg Fernando Davison MD Work Phone: [facility] 10-26-2023 13:54-0500 Diastolic blood pressure 72 mm[Hg] Fernando Davison MD Work Phone: [facility] 10-26-2023 13:54-0500 Heart rate 81 /min Fernando Davison MD Work Phone: [facility] 10-26-2023 13:54-0500 SaO2% (BldA) [Mass fraction] 96 % Fernando Davison MD Work Phone: [facility] 10-26-2023 13:54-0500 Systolic blood pressure 128 mm[Hg] Fernando Davison MD Work Phone: [facility] 10-19-2023 09:33-0500 Diastolic blood pressure 81 mm[Hg] Naty Bhakta MD Work Phone: [facility] 10-19-2023 09:33-0500 Heart rate 61 /min Naty Bhakta MD Work Phone: [facility] 10-19-2023 09:33-0500 Systolic blood pressure 133 mm[Hg] Naty Bhakta MD Work Phone: [facility] 09-28-2023 10:22-0500 Body mass index (BMI) [Ratio] 35.21 kg/m2 Monse Shipley MD Work Phone: [facility] 09-28-2023 10:22-0500 Body temperature 96.91 [degF] Monse Shipley MD Work Phone: [facility] 09-28-2023 10:22-0500 Body weight 95.98 kg Monse Shipley MD Work Phone: [facility] 09-28-2023 10:22-0500 Diastolic blood pressure 85 mm[Hg] Monse Shipley MD Work Phone: [facility] 09-28-2023 10:22-0500 Heart rate 60 /min Monse Shipley MD Work Phone: [facility] 09-28-2023 10:22-0500 Respiratory rate 16 /min Monse Shipley MD Work Phone: [facility] 09-28-2023 10:22-0500 SaO2% (BldA) [Mass fraction] 98 % Monse Shipley MD Work Phone: [facility] 09-28-2023 10:22-0500 Systolic blood pressure 129 mm[Hg] Mones Shipley MD Work Phone: [facility] 09-26-2023 12:22-0500 Body height 165.1 cm Garry Stephens MD Work Phone: [facility] 09-26-2023 12:22-0500 Body mass index (BMI) [Ratio] 35.78 kg/m2 Garry Stephens MD Work Phone: [facility] 09-26-2023 12:22-0500 Body weight 97.52 kg Garry Stephens MD Work Phone: [facility] 09-21-2023 10:19-0500 Body height 165.1 cm Naty Bhakta MD Work Phone: [facility] 09-21-2023 10:19-0500 Body mass index (BMI) [Ratio] 35.93 kg/m2 Naty Bhakta MD Work Phone: [facility] 09-21-2023 10:19-0500 Body temperature 98.4 [degF] Naty Bhakta MD Work Phone: [facility] 09-21-2023 10:19-0500 Body weight 97.93 kg Naty Bhakta MD Work Phone: [facility] 09-21-2023 10:19-0500 Diastolic blood pressure 62 mm[Hg] Naty Bhakta MD Work Phone: [facility] 09-21-2023 10:19-0500 Heart rate 67 /min Naty Bhakta MD Work Phone: [facility] 09-21-2023 10:19-0500 Respiratory rate 18 /min Naty Bhakta MD Work Phone: [facility] 09-21-2023 10:19-0500 SaO2% (BldA) [Mass fraction] 96 % Naty Bhakta MD Work Phone: [facility] 09-21-2023 10:19-0500 Systolic blood pressure 129 mm[Hg] Naty Bhakta MD Work Phone: [facility] 09-20-2023 12:48-0500 Body height 165.1 cm Dawn Uriarte DPM Work Phone: [facility] 09-20-2023 12:48-0500 Body mass index (BMI) [Ratio] 35.94 kg/m2 Dawn Uriarte DPM Work Phone: [facility] 09-20-2023 12:48-0500 Body weight 97.98 kg Dawn Uriarte DPM Work Phone: [facility] 09-20-2023 12:48-0500 Diastolic blood pressure 80 mm[Hg] Dawn Uriarte DPM Work Phone: [facility] 09-20-2023 12:48-0500 Heart rate 65 /min Dawn Uriarte DPM Work Phone: [facility] 09-20-2023 12:48-0500 Systolic blood pressure 150 mm[Hg] Dawn Uriarte DPM Work Phone: [facility] 09-08-2023 11:10-0500 Body mass index (BMI) [Ratio] 35.98 kg/m2 Monse Shipley MD Work Phone: [facility] 09-08-2023 11:10-0500 Body temperature 97.11 [degF] Monse Shipley MD Work Phone: [facility] 09-08-2023 11:10-0500 Body weight 98.07 kg Monse Shipley MD Work Phone: [facility] 09-08-2023 11:10-0500 Diastolic blood pressure 84 mm[Hg] Monse Shipley MD Work Phone: [facility] 09-08-2023 11:10-0500 Heart rate 50 /min Monse Shipley MD Work Phone: [facility] 09-08-2023 11:10-0500 Respiratory rate 16 /min Monse Shipley MD Work Phone: [facility] 09-08-2023 11:10-0500 SaO2% (BldA) [Mass fraction] 96 % Monse Shipley MD Work Phone: [facility] 09-08-2023 11:10-0500 Systolic blood pressure 128 mm[Hg] Monse Shipley MD Work Phone: [facility] 08-29-2023 09:13-0500 Body temperature 97.6 [degF] [facility] 08-29-2023 09:13-0500 Diastolic blood pressure 76 mm[Hg] [facility] 08-29-2023 09:13-0500 Heart rate 69 /min [facility] 08-29-2023 09:13-0500 Respiratory rate 16 /min [facility] 08-29-2023 09:13-0500 Systolic blood pressure 133 mm[Hg] [facility] 08-29-2023 08:14-0500 Body height 165.1 cm [facility] 08-29-2023 08:14-0500 SaO2% (BldA) [Mass fraction] 95 % [facility] 08-28-2023 08:16-0500 Body temperature 98 [degF] [facility] 08-28-2023 08:16-0500 Diastolic blood pressure 61 mm[Hg] [facility] 08-28-2023 08:16-0500 Heart rate 77 /min [facility] 08-28-2023 08:16-0500 Respiratory rate 18 /min [facility] 08-28-2023 08:16-0500 SaO2% (BldA) [Mass fraction] 95 % [facility] 08-28-2023 08:16-0500 Systolic blood pressure 144 mm[Hg] [facility] 08-27-2023 08:33-0400 Body temperature 97.5 [degF] [facility] 08-27-2023 08:33-0400 Diastolic blood pressure 78 mm[Hg] [facility] 08-27-2023 08:33-0400 Heart rate 61 /min [facility] 08-27-2023 08:33-0400 Respiratory rate 18 /min [facility] 08-27-2023 08:33-0400 SaO2% (BldA) [Mass fraction] 99 % [facility] 08-27-2023 08:33-0400 Systolic blood pressure 134 mm[Hg] [facility] 08-26-2023 09:58-0400 Body temperature 97.2 [degF] [facility] 08-26-2023 09:58-0400 Diastolic blood pressure 53 mm[Hg] [facility] 08-26-2023 09:58-0400 Heart rate 65 /min [facility] 08-26-2023 09:58-0400 Respiratory rate 16 /min [facility] 08-26-2023 09:58-0400 SaO2% (BldA) [Mass fraction] 98 % [facility] 08-26-2023 09:58-0400 Systolic blood pressure 152 mm[Hg] [facility] 08-26-2023 08:47-0400 Body height 165.1 cm [facility] 08-25-2023 09:30-0400 Body temperature 97.9 [degF] [facility] 08-25-2023 09:30-0400 Diastolic blood pressure 57 mm[Hg] [facility] 08-25-2023 09:30-0400 Heart rate 68 /min [facility] 08-25-2023 09:30-0400 Respiratory rate 16 /min [facility] 08-25-2023 09:30-0400 SaO2% (BldA) [Mass fraction] 96 % [facility] 08-25-2023 09:30-0400 Systolic blood pressure 139 mm[Hg] [facility] 08-25-2023 08:29-0400 Body height 165.1 cm [facility] 08-24-2023 09:55-0400 Body temperature 97.4 [degF] [facility] 08-24-2023 09:55-0400 Diastolic blood pressure 88 mm[Hg] [facility] 08-24-2023 09:55-0400 Heart rate 68 /min [facility] 08-24-2023 09:55-0400 Respiratory rate 16 /min [facility] 08-24-2023 09:55-0400 SaO2% (BldA) [Mass fraction] 97 % [facility] 08-24-2023 09:55-0400 Systolic blood pressure 151 mm[Hg] [facility] 08-24-2023 08:55-0400 Body height 165.1 cm [facility] 08-23-2023 13:37-0400 Body height 165.1 cm Dawn Uriarte DPM Work Phone: [facility] 08-23-2023 13:37-0400 Body mass index (BMI) [Ratio] 35.45 kg/m2 Dawn Uriarte DPM Work Phone: [facility] 08-23-2023 13:37-0400 Body weight 96.62 kg Dawn Uriarte DPM Work Phone: [facility] 08-23-2023 13:37-0400 Diastolic blood pressure 64 mm[Hg] Dawn Uriarte DPM Work Phone: [facility] 08-23-2023 13:37-0400 Systolic blood pressure 122 mm[Hg] Dawn Uriarte DPM Work Phone: [facility] 08-23-2023 09:43-0400 Diastolic blood pressure 68 mm[Hg] [facility] 08-23-2023 09:43-0400 Heart rate 71 /min [facility] 08-23-2023 09:43-0400 Respiratory rate 16 /min [facility] 08-23-2023 09:43-0400 Systolic blood pressure 150 mm[Hg] [facility] 08-23-2023 08:42-0400 Body height 165.1 cm [facility] 08-23-2023 08:42-0400 Body mass index (BMI) [Ratio] 34.9 kg/m2 [facility] 08-23-2023 08:42-0400 Body temperature 96.7 [degF] [facility] 08-23-2023 08:42-0400 Body weight 95.25 kg [facility] 08-23-2023 08:42-0400 SaO2% (BldA) [Mass fraction] 94 % [facility] 08-22-2023 10:02-0400 Body temperature 97.1 [degF] [facility] 08-22-2023 10:02-0400 Diastolic blood pressure 73 mm[Hg] [facility] 08-22-2023 10:02-0400 Heart rate 64 /min [facility] 08-22-2023 10:02-0400 Respiratory rate 16 /min [facility] 08-22-2023 10:02-0400 SaO2% (BldA) [Mass fraction] 94 % [facility] 08-22-2023 10:02-0400 Systolic blood pressure 141 mm[Hg] [facility] 08-22-2023 08:41-0400 Body mass index (BMI) [Ratio] 34.9 kg/m2 [facility] 08-22-2023 08:41-0400 Body weight 95.25 kg [facility] 08-21-2023 08:55-0400 Body temperature 97.9 [degF] [facility] 08-21-2023 08:55-0400 Diastolic blood pressure 69 mm[Hg] [facility] 08-21-2023 08:55-0400 Heart rate 61 /min [facility] 08-21-2023 08:55-0400 Respiratory rate 16 /min [facility] 08-21-2023 08:55-0400 SaO2% (BldA) [Mass fraction] 97 % [facility] 08-21-2023 08:55-0400 Systolic blood pressure 122 mm[Hg] [facility] 08-20-2023 09:03-0400 Body temperature 98.1 [degF] [facility] 08-20-2023 09:03-0400 Diastolic blood pressure 72 mm[Hg] [facility] 08-20-2023 09:03-0400 Heart rate 67 /min [facility] 08-20-2023 09:03-0400 Respiratory rate 17 /min [facility] 08-20-2023 09:03-0400 SaO2% (BldA) [Mass fraction] 93 % [facility] 08-20-2023 09:03-0400 Systolic blood pressure 124 mm[Hg] [facility] 08-19-2023 10:34-0400 Diastolic blood pressure 60 mm[Hg] [facility] 08-19-2023 10:34-0400 Heart rate 72 /min [facility] 08-19-2023 10:34-0400 Systolic blood pressure 135 mm[Hg] [facility] 08-19-2023 09:19-0400 Body height 165.1 cm [facility] 08-19-2023 09:19-0400 Body temperature 97.1 [degF] [facility] 08-19-2023 09:19-0400 Respiratory rate 16 /min [facility] 08-19-2023 09:19-0400 SaO2% (BldA) [Mass fraction] 96 % [facility] 08-18-2023 09:51-0400 Diastolic blood pressure 61 mm[Hg] [facility] 08-18-2023 09:51-0400 Heart rate 65 /min [facility] 08-18-2023 09:51-0400 Systolic blood pressure 128 mm[Hg] [facility] 08-18-2023 08:58-0400 Body height 165.1 cm [facility] 08-18-2023 08:58-0400 Body mass index (BMI) [Ratio] 34.9 kg/m2 [facility] 08-18-2023 08:58-0400 Body temperature 97.1 [degF] [facility] 08-18-2023 08:58-0400 Body weight 95.25 kg [facility] 08-18-2023 08:58-0400 Respiratory rate 16 /min [facility] 08-18-2023 08:58-0400 SaO2% (BldA) [Mass fraction] 97 % [facility] 08-17-2023 09:33-0400 Body temperature 97.2 [degF] [facility] 08-17-2023 09:33-0400 Diastolic blood pressure 67 mm[Hg] [facility] 08-17-2023 09:33-0400 Heart rate 65 /min [facility] 08-17-2023 09:33-0400 Respiratory rate 16 /min [facility] 08-17-2023 09:33-0400 SaO2% (BldA) [Mass fraction] 95 % [facility] 08-17-2023 09:33-0400 Systolic blood pressure 134 mm[Hg] [facility] 08-17-2023 08:35-0400 Body height 165.1 cm [facility] 08-16-2023 09:49-0400 Body temperature 97.2 [degF] [facility] 08-16-2023 09:49-0400 Diastolic blood pressure 58 mm[Hg] [facility] 08-16-2023 09:49-0400 Heart rate 65 /min [facility] 08-16-2023 09:49-0400 Respiratory rate 16 /min [facility] 08-16-2023 09:49-0400 SaO2% (BldA) [Mass fraction] 97 % [facility] 08-16-2023 09:49-0400 Systolic blood pressure 139 mm[Hg] [facility] 08-16-2023 08:49-0400 Body height 165.1 cm [facility] 08-15-2023 11:34-0400 Body height 165.1 cm Monse Shipley MD Work Phone: [facility] 08-15-2023 11:34-0400 Body mass index (BMI) [Ratio] 35.51 kg/m2 Monse Shipley MD Work Phone: [facility] 08-15-2023 11:34-0400 Body temperature 97.39 [degF] Monse Shipley MD Work Phone: [facility] 08-15-2023 11:34-0400 Body weight 96.8 kg Monse Shipley MD Work Phone: [facility] 08-15-2023 11:34-0400 Diastolic blood pressure 60 mm[Hg] Monse Shipley MD Work Phone: [facility] 08-15-2023 11:34-0400 Heart rate 64 /min Monse Shipley MD Work Phone: [facility] 08-15-2023 11:34-0400 Respiratory rate 16 /min Monse Shipley MD Work Phone: [facility] 08-15-2023 11:34-0400 SaO2% (BldA) [Mass fraction] 98 % Monse Shipley MD Work Phone: [facility] 08-15-2023 11:34-0400 Systolic blood pressure 138 mm[Hg] Monse Shipley MD Work Phone: [facility] 08-15-2023 09:41-0400 Body temperature 97.2 [degF] [facility] 08-15-2023 09:41-0400 Diastolic blood pressure 66 mm[Hg] [facility] 08-15-2023 09:41-0400 Heart rate 56 /min [facility] 08-15-2023 09:41-0400 Respiratory rate 16 /min [facility] 08-15-2023 09:41-0400 Systolic blood pressure 143 mm[Hg] [facility] 08-15-2023 08:38-0400 Body height 165.1 cm [facility] 08-12-2023 09:44-0400 Body temperature 97.6 [degF] [facility] 08-12-2023 09:44-0400 Diastolic blood pressure 67 mm[Hg] [facility] 08-12-2023 09:44-0400 Heart rate 63 /min [facility] 08-12-2023 09:44-0400 Respiratory rate 16 /min [facility] 08-12-2023 09:44-0400 SaO2% (BldA) [Mass fraction] 96 % [facility] 08-12-2023 09:44-0400 Systolic blood pressure 143 mm[Hg] [facility] 08-12-2023 08:40-0400 Body height 165.1 cm [facility] 08-11-2023 12:46-0400 Body height 165.1 cm Dawn Uriarte DPM Work Phone: [facility] 08-11-2023 12:46-0400 Body mass index (BMI) [Ratio] 35.45 kg/m2 Dawn Uriarte DPM Work Phone: [facility] 08-11-2023 12:46-0400 Body weight 96.62 kg Dawn Uriarte DPM Work Phone: [facility] 08-11-2023 12:46-0400 Diastolic blood pressure 80 mm[Hg] Dawn COONM Work Phone: [facility] 08-11-2023 12:46-0400 Systolic blood pressure 150 mm[Hg] Dawn COONM Work Phone: [facility] 08-11-2023 10:06-0400 Body temperature 97.4 [degF] [facility] 08-11-2023 10:06-0400 Diastolic blood pressure 65 mm[Hg] [facility] 08-11-2023 10:06-0400 Heart rate 60 /min [facility] 08-11-2023 10:06-0400 Respiratory rate 16 /min [facility] 08-11-2023 10:06-0400 SaO2% (BldA) [Mass fraction] 97 % [facility] 08-11-2023 10:06-0400 Systolic blood pressure 125 mm[Hg] [facility] 08-11-2023 08:52-0400 Body height 165.1 cm [facility] 08-11-2023 08:52-0400 Body mass index (BMI) [Ratio] 34.9 kg/m2 [facility] 08-11-2023 08:52-0400 Body weight 95.25 kg [facility] 08-10-2023 09:33-0400 Diastolic blood pressure 73 mm[Hg] [facility] 08-10-2023 09:33-0400 Heart rate 62 /min [facility] 08-10-2023 09:33-0400 Respiratory rate 16 /min [facility] 08-10-2023 09:33-0400 Systolic blood pressure 140 mm[Hg] [facility] 08-10-2023 08:40-0400 Body height 165.1 cm [facility] 08-10-2023 08:40-0400 Body mass index (BMI) [Ratio] 34.9 kg/m2 [facility] 08-10-2023 08:40-0400 Body temperature 96.1 [degF] [facility] 08-10-2023 08:40-0400 Body weight 95.25 kg [facility] 08-10-2023 08:40-0400 SaO2% (BldA) [Mass fraction] 98 % [facility] 08-09-2023 09:29-0400 Body temperature 97.1 [degF] [facility] 08-09-2023 09:29-0400 Diastolic blood pressure 50 mm[Hg] [facility] 08-09-2023 09:29-0400 Heart rate 60 /min [facility] 08-09-2023 09:29-0400 Respiratory rate 16 /min [facility] 08-09-2023 09:29-0400 SaO2% (BldA) [Mass fraction] 97 % [facility] 08-09-2023 09:29-0400 Systolic blood pressure 134 mm[Hg] [facility] 08-09-2023 08:33-0400 Body height 165.1 cm [facility] 08-08-2023 09:54-0400 Body temperature 97.4 [degF] [facility] 08-08-2023 09:54-0400 Diastolic blood pressure 70 mm[Hg] [facility] 08-08-2023 09:54-0400 Heart rate 56 /min [facility] 08-08-2023 09:54-0400 Respiratory rate 16 /min [facility] 08-08-2023 09:54-0400 SaO2% (BldA) [Mass fraction] 98 % [facility] 08-08-2023 09:54-0400 Systolic blood pressure 150 mm[Hg] [facility] 08-08-2023 08:43-0400 Body height 165.1 cm [facility] 08-07-2023 07:58-0400 Body height 165.1 cm [facility] 08-07-2023 07:58-0400 Body temperature 98.2 [degF] [facility] 08-07-2023 07:58-0400 Diastolic blood pressure 85 mm[Hg] [facility] 08-07-2023 07:58-0400 Heart rate 61 /min [facility] 08-07-2023 07:58-0400 Respiratory rate 18 /min [facility] 08-07-2023 07:58-0400 SaO2% (BldA) [Mass fraction] 97 % [facility] 08-07-2023 07:58-0400 Systolic blood pressure 161 mm[Hg] [facility] 08-06-2023 09:16-0400 Body height 165.1 cm [facility] 08-06-2023 09:16-0400 Body temperature 97.8 [degF] [facility] 08-06-2023 09:16-0400 Diastolic blood pressure 68 mm[Hg] [facility] 08-06-2023 09:16-0400 Heart rate 60 /min [facility] 08-06-2023 09:16-0400 Respiratory rate 18 /min [facility] 08-06-2023 09:16-0400 SaO2% (BldA) [Mass fraction] 97 % [facility] 08-06-2023 09:16-0400 Systolic blood pressure 141 mm[Hg] [facility] 08-05-2023 09:30-0400 Body temperature 97.5 [degF] [facility] 08-05-2023 09:30-0400 Diastolic blood pressure 54 mm[Hg] [facility] 08-05-2023 09:30-0400 Heart rate 50 /min [facility] 08-05-2023 09:30-0400 Respiratory rate 16 /min [facility] 08-05-2023 09:30-0400 SaO2% (BldA) [Mass fraction] 97 % [facility] 08-05-2023 09:30-0400 Systolic blood pressure 118 mm[Hg] [facility] 08-05-2023 08:24-0400 Body height 165.1 cm [facility] 08-05-2023 08:24-0400 Body mass index (BMI) [Ratio] 34.9 kg/m2 [facility] 08-05-2023 08:24-0400 Body weight 95.25 kg [facility] 08-04-2023 12:18-0400 Body temperature 97.11 [degF] [facility] [address] [place] [address] 08-04-2023 12:18-0400 Diastolic blood pressure 72 mm[Hg] [facility] [address] [place] [address] 08-04-2023 12:18-0400 Heart rate 60 /min [facility] [address] [place] [address] 08-04-2023 12:18-0400 Respiratory rate 16 /min [facility] [address] [place] [address] 08-04-2023 12:18-0400 SaO2% (BldA) [Mass fraction] 98 % [facility] [address] [place] [address] 08-04-2023 12:18-0400 Systolic blood pressure 171 mm[Hg] [facility] [address] [place] [address] 08-04-2023 10:34-0400 Body height 165.1 cm Monse Shipley MD Work Phone: [facility] 08-04-2023 10:34-0400 Body mass index (BMI) [Ratio] 35.08 kg/m2 Monse Shipley MD Work Phone: [facility] 08-04-2023 10:34-0400 Body temperature 97.7 [degF] Monse Shipley MD Work Phone: [facility] 08-04-2023 10:34-0400 Body weight 95.62 kg Monse Shipley MD Work Phone: [facility] 08-04-2023 10:34-0400 Diastolic blood pressure 68 mm[Hg] Monse Shipley MD Work Phone: [facility] 08-04-2023 10:34-0400 Heart rate 62 /min Monse Shipley MD Work Phone: [facility] 08-04-2023 10:34-0400 Respiratory rate 16 /min Monse Shipley MD Work Phone: [facility] 08-04-2023 10:34-0400 SaO2% (BldA) [Mass fraction] 98 % Monse Shipley MD Work Phone: [facility] 08-04-2023 10:34-0400 Systolic blood pressure 114 mm[Hg] Monse Shipley MD Work Phone: [facility] 08-03-2023 14:01-0400 Body temperature 98.29 [degF] [facility] [address] [place] [address] 08-03-2023 14:01-0400 Diastolic blood pressure 55 mm[Hg] [facility] [address] [place] [address] 08-03-2023 14:01-0400 Heart rate 65 /min [facility] [address] [place] [address] 08-03-2023 14:01-0400 Respiratory rate 16 /min [facility] [address] [place] [address] 08-03-2023 14:01-0400 SaO2% (BldA) [Mass fraction] 98 % [facility] 5 [facility] 08-03-2023 14:01-0400 Systolic blood pressure 128 mm[Hg] [facility] 5 [facility] 08-02-2023 12:10-0400 Body temperature 96.91 [degF] [facility] 5 [facility] 08-02-2023 12:10-0400 Diastolic blood pressure 66 mm[Hg] [facility] 5 [facility] 08-02-2023 12:10-0400 Heart rate 69 /min [facility] 5 [facility] 08-02-2023 12:10-0400 Respiratory rate 16 /min [facility] 5 [facility] 08-02-2023 12:10-0400 SaO2% (BldA) [Mass fraction] 98 % [facility] 5 [facility] 08-02-2023 12:10-0400 Systolic blood pressure 142 mm[Hg] [facility] 5 [facility] 08-01-2023 09:16-0400 Body temperature 97.39 [degF] [facility] 2 [facility] 08-01-2023 09:16-0400 Diastolic blood pressure 73 mm[Hg] [facility] 2 [facility] 08-01-2023 09:16-0400 Heart rate 70 /min [facility] 2 [facility] 08-01-2023 09:16-0400 Respiratory rate 16 /min [facility] 2 [facility] 08-01-2023 09:16-0400 SaO2% (BldA) [Mass fraction] 97 % [facility] 2 [facility] 08-01-2023 09:16-0400 Systolic blood pressure 171 mm[Hg] [facility] 2 [facility] 07-31-2023 09:00-0400 Body temperature 97.2 [degF] [facility] 3 [facility] 07-31-2023 09:00-0400 Diastolic blood pressure 71 mm[Hg] [facility] 3 [facility] 07-31-2023 09:00-0400 Heart rate 68 /min [facility] 3 [facility] 07-31-2023 09:00-0400 Respiratory rate 18 /min [facility] 3 [facility] 07-31-2023 09:00-0400 SaO2% (BldA) [Mass fraction] 98 % [facility] 3 [facility] 07-31-2023 09:00-0400 Systolic blood pressure 148 mm[Hg] [facility] 3 [facility] 07-30-2023 08:03-0400 Body temperature 97.3 [degF] [facility] 3 [facility] 07-30-2023 08:03-0400 Diastolic blood pressure 67 mm[Hg] [facility] 3 [facility] 07-30-2023 08:03-0400 Heart rate 63 /min [facility] 3 [facility] 07-30-2023 08:03-0400 Respiratory rate 16 /min [facility] 3 [facility] 07-30-2023 08:03-0400 SaO2% (BldA) [Mass fraction] 98 % [facility] 3 [facility] 07-30-2023 08:03-0400 Systolic blood pressure 150 mm[Hg] [facility] 3 [facility] 07-29-2023 14:56-0400 Body temperature 97.7 [degF] [facility] 1 [facility] 07-29-2023 14:56-0400 Diastolic blood pressure 62 mm[Hg] [facility] 1 [facility] 07-29-2023 14:56-0400 Heart rate 69 /min Avg Mayra Gal Infusion Nurse 1 [facility] 07-29-2023 14:56-0400 Respiratory rate 16 /min Avg Mayra Gal Infusion Nurse 1 [facility] 07-29-2023 14:56-0400 SaO2% (BldA) [Mass fraction] 96 % Avg Mayra Gal Infusion Nurse 1 [facility] 07-29-2023 14:56-0400 Systolic blood pressure 138 mm[Hg] Avg Mayra Gal Infusion Nurse 1 [facility] 07-29-2023 11:15-0400 Body height 165.1 cm Monse Shipley MD Work Phone: [facility] 07-29-2023 11:15-0400 Body mass index (BMI) [Ratio] 35.28 kg/m2 Monse Shipley MD Work Phone: [facility] 07-29-2023 11:15-0400 Body temperature 97 [degF] Monse Shipley MD Work Phone: [facility] 07-29-2023 11:15-0400 Body weight 96.16 kg Monse Shipley MD Work Phone: [facility] 07-29-2023 11:15-0400 Diastolic blood pressure 68 mm[Hg] Monse Shipley MD Work Phone: [facility] 07-29-2023 11:15-0400 Heart rate 88 /min Monse Shipley MD Work Phone: [facility] 07-29-2023 11:15-0400 Respiratory rate 20 /min Monse Shipley MD Work Phone: [facility] 07-29-2023 11:15-0400 SaO2% (BldA) [Mass fraction] 95 % Monse Shilpey MD Work Phone: [facility] 07-29-2023 11:15-0400 Systolic blood pressure 128 mm[Hg] Monse Shipley MD Work Phone: [facility] 07-28-2023 09:40-0400 Body height 165.1 cm Dawn Uriarte DPM Work Phone: [facility] 07-28-2023 09:40-0400 Body mass index (BMI) [Ratio] 35.11 kg/m2 Dawn Uriarte DPM Work Phone: [facility] 07-28-2023 09:40-0400 Body weight 95.71 kg Dawn Uriarte DPM Work Phone: [facility] 07-28-2023 09:40-0400 Diastolic blood pressure 80 mm[Hg] Dawn Uriarte DPM Work Phone: [facility] 07-28-2023 09:40-0400 Heart rate 81 /min Dawn Uriarte DPM Work Phone: [facility] 07-28-2023 09:40-0400 Systolic blood pressure 160 mm[Hg] Dawn COONM Work Phone: [facility] 07-22-2023 08:24-0400 Body height 165.1 cm Monse Shipley MD Work Phone: [facility] 07-22-2023 08:24-0400 Body mass index (BMI) [Ratio] 35.25 kg/m2 Monse Shipley MD Work Phone: [facility] 07-22-2023 08:24-0400 Body temperature 97.59 [degF] Monse Shipley MD Work Phone: [facility] 07-22-2023 08:24-0400 Body weight 96.07 kg Monse Shipley MD Work Phone: [facility] 07-22-2023 08:24-0400 Diastolic blood pressure 72 mm[Hg] Monse Shipley MD Work Phone: [facility] 07-22-2023 08:24-0400 Heart rate 75 /min Monse Shipley MD Work Phone: [facility] 07-22-2023 08:24-0400 Respiratory rate 17 /min Monse Shipley MD Work Phone: [facility] 07-22-2023 08:24-0400 SaO2% (BldA) [Mass fraction] 95 % Monse Shipley MD Work Phone: [facility] 07-22-2023 08:24-0400 Systolic blood pressure 134 mm[Hg] Monse Shipley MD Work Phone: [facility] 07-21-2023 13:09-0400 Body height 165.1 cm Dawn Uriarte DPM Work Phone: [facility] 07-21-2023 13:09-0400 Body mass index (BMI) [Ratio] 34.78 kg/m2 Dawn Cisnerosk DPM Work Phone: [facility] 07-21-2023 13:09-0400 Body weight 94.8 kg Dawn Cisnerosk DPM Work Phone: [facility] 07-21-2023 13:09-0400 Diastolic blood pressure 80 mm[Hg] Dawn Blaynek DPM Work Phone: [facility] 07-21-2023 13:09-0400 Systolic blood pressure 150 mm[Hg] Dawn Vuatek DPM Work Phone: [facility] 07-18-2023 09:49-0400 Body height 165.1 cm Dawn Mirellaatek DPM Work Phone: [facility] 07-18-2023 09:49-0400 Body mass index (BMI) [Ratio] 34.78 kg/m2 Dawn Cisnerosk DPM Work Phone: [facility] 07-18-2023 09:49-0400 Body weight 94.8 kg Dawn Vuatek DPM Work Phone: [facility] 07-18-2023 09:49-0400 Diastolic blood pressure 90 mm[Hg] Dawn Mirellaatek DPM Work Phone: [facility] 07-18-2023 09:49-0400 Systolic blood pressure 140 mm[Hg] Dawn Uriarte DPM Work Phone: [facility] 07-18-2023 08:47-0400 Body height 165.1 cm Monse Shipley MD Work Phone: [facility] 07-18-2023 08:47-0400 Body mass index (BMI) [Ratio] 34.78 kg/m2 Monse Shipley MD Work Phone: [facility] 07-18-2023 08:47-0400 Body temperature 96.8 [degF] Monse Shipley MD Work Phone: [facility] 07-18-2023 08:47-0400 Body weight 94.8 kg Monse Shipley MD Work Phone: [facility] 07-18-2023 08:47-0400 Diastolic blood pressure 72 mm[Hg] Monse Shipley MD Work Phone: [facility] 07-18-2023 08:47-0400 Heart rate 82 /min Monse Shipley MD Work Phone: [facility] 07-18-2023 08:47-0400 Respiratory rate 18 /min Monse Shipley MD Work Phone: [facility] 07-18-2023 08:47-0400 SaO2% (BldA) [Mass fraction] 97 % Monse Shipley MD Work Phone: [facility] 07-18-2023 08:47-0400 Systolic blood pressure 128 mm[Hg] Monse Shipley MD Work Phone: [facility] 07-13-2023 10:50-0400 Body height 165.1 cm Monse Shipley MD Work Phone: [facility] 07-13-2023 10:50-0400 Body mass index (BMI) [Ratio] 34.98 kg/m2 Monse Shipley MD Work Phone: [facility] 07-13-2023 10:50-0400 Body temperature 97.59 [degF] Monse Shipley MD Work Phone: [facility] 07-13-2023 10:50-0400 Body weight 95.35 kg Monse Shipley MD Work Phone: [facility] 07-13-2023 10:50-0400 Diastolic blood pressure 70 mm[Hg] Monse Shipley MD Work Phone: [facility] 07-13-2023 10:50-0400 Heart rate 64 /min Monse Shipley MD Work Phone: [facility] 07-13-2023 10:50-0400 Respiratory rate 16 /min Monse Shipley MD Work Phone: [facility] 07-13-2023 10:50-0400 SaO2% (BldA) [Mass fraction] 94 % Monse Shipley MD Work Phone: [facility] 07-13-2023 10:50-0400 Systolic blood pressure 126 mm[Hg] Monse Shipley MD Work Phone: [facility] 07-08-2023 10:29-0400 Diastolic blood pressure 58 mm[Hg] Dawn Uriarte DPM Work Phone: [facility] 07-08-2023 10:29-0400 Heart rate 57 /min Dawn Uriarte DPM Work Phone: [facility] 07-08-2023 10:29-0400 Respiratory rate 20 /min Dawn Uriarte DPM Work Phone: [facility] 07-08-2023 10:29-0400 SaO2% (BldA) [Mass fraction] 97 % Dawn Uriarte DPM Work Phone: [facility] 07-08-2023 10:29-0400 Systolic blood pressure 146 mm[Hg] Dawn Uriarte DPM Work Phone: [facility] 07-08-2023 10:14-0400 Body temperature 97.2 [degF] Dawn Uriarte DPM Work Phone: [facility] 07-08-2023 08:00-0400 Body height 165.1 cm Dawn Uriarte DPM Work Phone: [facility] 07-08-2023 08:00-0400 Body mass index (BMI) [Ratio] 34.95 kg/m2 Dawn COONM Work Phone: [facility] 07-08-2023 08:00-0400 Body weight 95.25 kg Dawn COONM Work Phone: [facility] 07-04-2023 09:44-0400 Body height 165.1 cm M[facility] Shipley MD [facility] 07-04-2023 09:44-0400 Body mass index (BMI) [Ratio] 35.25 kg/m2 Monse Shipley MD Work Phone: [employer] [facility] 07-04-2023 09:44-0400 Body temperature 97.11 [degF] Monse Shipley MD Work Phone: [facility] 07-04-2023 09:44-0400 Body weight 96.07 kg Monse Shipley MD Work Phone: [facility] 07-04-2023 09:44-0400 Diastolic blood pressure 78 mm[Hg] Monse Shipley MD Work Phone: [facility] 07-04-2023 09:44-0400 Heart rate 63 /min Monse Shipley MD Work Phone: [facility] 07-04-2023 09:44-0400 Respiratory rate 15 /min Monse Shipley MD Work Phone: [facility] 07-04-2023 09:44-0400 SaO2% (BldA) [Mass fraction] 97 % Monse Shipley MD Work Phone: [facility] 07-04-2023 09:44-0400 Systolic blood pressure 124 mm[Hg] Monse Shipley MD Work Phone: [facility] 06-29-2023 11:11-0400 Body height 165.1 cm Fernie Paredes DO Work Phone: [facility] 06-29-2023 11:11-0400 Body mass index (BMI) [Ratio] 35.18 kg/m2 Fernie Paredes DO Work Phone: [employer] 06-29-2023 11:11-0400 Body temperature 97.5 [degF] Fernie Paredes DO Work Phone: [facility] 06-29-2023 11:11-0400 Body weight 95.89 kg Fernie Paredes DO Work Phone: [facility] 06-29-2023 11:11-0400 Diastolic blood pressure 67 mm[Hg] Fernie Paredes DO Work Phone: [facility] 06-29-2023 11:11-0400 Heart rate 58 /min Fernie Paredes DO Work Phone: [facility] 06-29-2023 11:11-0400 Respiratory rate 18 /min Fernie Paredes DO Work Phone: [employer] [facility] 06-29-2023 11:11-0400 SaO2% (BldA) [Mass fraction] 95 % Fernie Paredes DO Work Phone: [employer] [facility] 06-29-2023 11:11-0400 Systolic blood pressure 145 mm[Hg] Fernie Paredes DO Work Phone: [employer] [facility] 06-28-2023 13:16-0400 Body height 165.1 cm Dawn Vuatek DPM Work Phone: [facility] 06-28-2023 13:16-0400 Body mass index (BMI) [Ratio] 34.95 kg/m2 Dawn Swiatek DPM Work Phone: [employer] [facility] 06-28-2023 13:16-0400 Body weight 95.25 kg Dawn Swiatek DPM Work Phone: [facility] 06-28-2023 13:16-0400 Diastolic blood pressure 60 mm[Hg] Dawn Swiatek DPM Work Phone: [employer] [facility] 06-28-2023 13:16-0400 Systolic blood pressure 128 mm[Hg] Dawn Swiatek DPM Work Phone: [facility] 06-21-2023 08:27-0400 Body height 165.1 cm Garry Stephens MD Work Phone: [facility] 06-21-2023 08:27-0400 Body mass index (BMI) [Ratio] 34.95 kg/m2 Garry Stephens MD Work Phone: [facility] 06-21-2023 08:27-0400 Body weight 95.25 kg Garry Stephens MD Work Phone: [facility] 06-14-2023 09:13-0400 Body height 165.1 cm Dawn Mirellaatek DPM Work Phone: [facility] 06-14-2023 09:13-0400 Body mass index (BMI) [Ratio] 35.45 kg/m2 Dawn Swiatek DPM Work Phone: [facility] 06-14-2023 09:13-0400 Body weight 96.62 kg Dawn Swiatek DPM Work Phone: [facility] 06-14-2023 09:13-0400 Diastolic blood pressure 80 mm[Hg] Dawn Swiatek DPM Work Phone: [facility] 06-14-2023 09:13-0400 Heart rate 70 /min Dawn Swiatek DPM Work Phone: [facility] 06-14-2023 09:13-0400 Systolic blood pressure 160 mm[Hg] Dawn Swiatek DPM Work Phone: [facility] 05-10-2023 10:27-0400 Body height 165.1 cm Dawn Swiatek DPM Work Phone: [facility] 05-10-2023 10:27-0400 Body mass index (BMI) [Ratio] 34.95 kg/m2 Dawn Swiatek DPM Work Phone: [facility] 05-10-2023 10:27-0400 Body weight 95.25 kg Dawn Swiatek DPM Work Phone: [facility] 05-10-2023 10:27-0400 Diastolic blood pressure 78 mm[Hg] Dawn Vuatek DPM Work Phone: [facility] 05-10-2023 10:27-0400 Heart rate 69 /min Dawn Swiatek DPM Work Phone: [facility] 05-10-2023 10:27-0400 SaO2% (BldA) [Mass fraction] 97 % Dawn Uriarte DPM Work Phone: [facility] 05-10-2023 10:27-0400 Systolic blood pressure 140 mm[Hg] Dawn Uriarte DPM Work Phone: [facility] 05-05-2023 12:32-0400 Body height 165.1 cm Dawn Uriarte DPM Work Phone: [facility] 05-05-2023 12:32-0400 Body mass index (BMI) [Ratio] 34.95 kg/m2 Dawn Uriarte DPM Work Phone: [facility] 05-05-2023 12:32-0400 Body weight 95.25 kg Dawn Uriarte DPM Work Phone: [facility] 05-05-2023 12:32-0400 Diastolic blood pressure 80 mm[Hg] Dawn Uriarte DPM Work Phone: [facility] 05-05-2023 12:32-0400 Heart rate 70 /min Dawn Uriarte DPM Work Phone: [facility] 05-05-2023 12:32-0400 Systolic blood pressure 140 mm[Hg] Dawn Uriarte DPM Work Phone: [facility] 05-02-2023 14:16-0400 Body height 165.1 cm Rosalee ELIZONDO Work Phone: [facility] 05-02-2023 14:16-0400 Body mass index (BMI) [Ratio] 34.95 kg/m2 Rosalee ELIZONDO Work Phone: [facility] 05-02-2023 14:16-0400 Body temperature 98.49 [degF] Rosalee ELIZONDO Work Phone: [facility] 05-02-2023 14:16-0400 Body weight 95.25 kg Rosalee Wolfe PA Work Phone: [facility] 05-02-2023 14:16-0400 Diastolic blood pressure 63 mm[Hg] Rosalee Nietoner PA Work Phone: [facility] 05-02-2023 14:16-0400 Heart rate 60 /min Rosalee Wolfe PA Work Phone: [facility] 05-02-2023 14:16-0400 Respiratory rate 18 /min Rosalee Nietoner PA Work Phone: [facility] 05-02-2023 14:16-0400 SaO2% (BldA) [Mass fraction] 96 % Rosalee Nietoner PA Work Phone: [facility] 05-02-2023 14:16-0400 Systolic blood pressure 145 mm[Hg] Rosalee Wolfe PA Work Phone: [facility] 04-29-2023 16:50-0400 Body height 165.1 cm Gonsalo Blackwood MD Work Phone: [facility] 04-29-2023 16:50-0400 Body mass index (BMI) [Ratio] 35.45 kg/m2 Gonsalo Blackwood MD Work Phone: [facility] 04-29-2023 16:50-0400 Body weight 96.62 kg Gonsalo Blackwood MD Work Phone: [facility] 04-27-2023 14:55-0400 Body mass index (BMI) [Ratio] 35.45 kg/m2 Fernando Davison MD Work Phone: [facility] 04-27-2023 14:55-0400 Body weight 96.62 kg Fernando Davison MD Work Phone: [facility] 04-27-2023 14:55-0400 Diastolic blood pressure 74 mm[Hg] Fernando Davison MD Work Phone: [facility] 04-27-2023 14:55-0400 Heart rate 78 /min Fernando Davison MD Work Phone: [facility] 04-27-2023 14:55-0400 SaO2% (BldA) [Mass fraction] 94 % Fernando Davison MD Work Phone: [facility] 04-27-2023 14:55-0400 Systolic blood pressure 130 mm[Hg] Fernando Davison MD Work Phone: [facility] 04-21-2023 12:31-0400 Body height 165.1 cm Shae Whittington LINTER OPERATOR-RESIDENTIAL CARE OFFICER Work Phone: [facility] 04-21-2023 12:31-0400 Body mass index (BMI) [Ratio] 36.11 kg/m2 Shae Whittington LINTER OPERATOR-RESIDENTIAL CARE OFFICER Work Phone: [facility] 04-21-2023 12:31-0400 Body temperature 97.81 [degF] Shae Whittington LINTER OPERATOR-RESIDENTIAL CARE OFFICER Work Phone: [facility] 04-21-2023 12:31-0400 Body weight 98.43 kg Shae Whittington LINTER OPERATOR-RESIDENTIAL CARE OFFICER Work Phone: [facility] 04-21-2023 12:31-0400 Diastolic blood pressure 68 mm[Hg] Shae Whittington LINTER OPERATOR-RESIDENTIAL CARE OFFICER Work Phone: [facility] 04-21-2023 12:31-0400 Heart rate 67 /min Shae Whittington LINTER OPERATOR-RESIDENTIAL CARE OFFICER Work Phone: [facility] 04-21-2023 12:31-0400 Respiratory rate 16 /min Shae Whittington LINTER OPERATOR-RESIDENTIAL CARE OFFICER Work Phone: [facility] 04-21-2023 12:31-0400 SaO2% (BldA) [Mass fraction] 97 % Shae Whittington LINTER OPERATOR-RESIDENTIAL CARE OFFICER Work Phone: [facility] 04-21-2023 12:31-0400 Systolic blood pressure 151 mm[Hg] Shae Whittington LINTER OPERATOR-RESIDENTIAL CARE OFFICER Work Phone: [facility] 04-04-2023 15:06-0400 Body height 165.1 cm Andi Mayra [employer] [facility] 04-04-2023 15:06-0400 Body mass index (BMI) [Ratio] 35.28 kg/m2 Andi Mayra [employer] [facility] 04-04-2023 15:06-0400 Body weight 96.16 kg Andi Marya [employer] [facility] 04-04-2023 15:06-0400 Diastolic blood pressure 77 mm[Hg] Andi Mayra [employer] [facility] 04-04-2023 15:06-0400 Heart rate 71 /min Andi Mayra [employer] [facility] Comment on above: regular 04-04-2023 15:06-0400 SaO2% (BldA) [Mass fraction] 95 % Andi Mayra [employer] [facility] Comment on above: clear 04-04-2023 15:06-0400 Systolic blood pressure 168 mm[Hg] Andi Mayra [employer] [facility] 02-14-2023 13:20-0400 Body height 165.1 cm Fernie PolyPid DO Work Phone: [facility] 02-14-2023 13:20-0400 Body mass index (BMI) [Ratio] 34.95 kg/m2 Fernie Brown DO Work Phone: [facility] 02-14-2023 13:20-0400 Body temperature 97 [degF] Fernie Brown DO Work Phone: [facility] 02-14-2023 13:20-0400 Body weight 95.25 kg Fernie Brown DO Work Phone: [facility] 02-14-2023 13:20-0400 Diastolic blood pressure 56 mm[Hg] Fernie Brown DO Work Phone: [facility] 02-14-2023 13:20-0400 Heart rate 71 /min Fernie Brown DO Work Phone: [facility] 02-14-2023 13:20-0400 Respiratory rate 14 /min Fernie Brown DO Work Phone: [facility] 02-14-2023 13:20-0400 SaO2% (BldA) [Mass fraction] 97 % Fernie Paredes DO [facility] Phone[facility] 02-14-2023 13:20-0400 Systolic blood pressure 120 mm[Hg] Fernie Paredes DO Work Phone: [facility] 12-16-2022 08:51-0500 Diastolic blood pressure 63 mm[Hg] Isreal Sigala MD Work Phone: [facility] 12-16-2022 08:51-0500 Heart rate 65 /min Isreal Sigala MD Work Phone: [facility] 12-16-2022 08:51-0500 Respiratory rate 16 /min Isreal Sigala MD Work Phone: [facility] 12-16-2022 08:51-0500 SaO2% (BldA) [Mass fraction] 98 % Isreal Sigala MD Work Phone: [facility] 12-16-2022 08:51-0500 Systolic blood pressure 140 mm[Hg] Isreal Sigala MD Work Phone: [facility] 12-16-2022 08:21-0500 Body temperature 97.5 [degF] Isreal Sigala MD Work Phone: [facility] 12-16-2022 06:46-0500 Body height 165.1 cm Isreal Sigala MD Work Phone: [facility] 12-16-2022 06:46-0500 Body mass index (BMI) [Ratio] 35.45 kg/m2 Isreal Sigala MD Work Phone: [facility] 12-16-2022 06:46-0500 Body weight 96.62 kg Isreal Sigala MD Work Phone: [facility] 11-22-2022 13:04-0500 Body height 165.1 cm Fernie Paredes DO Work Phone: [facility] 11-22-2022 13:04-0500 Body mass index (BMI) [Ratio] 35.46 kg/m2 Fernie Paredes DO Work Phone: [facility] 11-22-2022 13:04-0500 Body temperature 97.2 [degF] Fernie Paredes DO Work Phone: [facility] 11-22-2022 13:04-0500 Body weight 96.66 kg Fernie Paredes DO Work Phone: [facility] 11-22-2022 13:04-0500 Diastolic blood pressure 63 mm[Hg] Fernie Paredes DO Work Phone: [facility] 11-22-2022 13:04-0500 Heart rate 48 /min Fernie Paredes DO Work Phone: [facility] 11-22-2022 13:04-0500 Respiratory rate 16 /min Fernie Paredes DO Work Phone: [facility] 11-22-2022 13:04-0500 SaO2% (BldA) [Mass fraction] 98 % Fernie Paredes DO Work Phone: [facility] 11-22-2022 13:04-0500 Systolic blood pressure 139 mm[Hg] Fenrie Paredes DO Work Phone: [facility] 11-17-2022 11:47-0500 Body height 165.1 cm Gonsalo Blackwood MD Work Phone: [facility] 11-17-2022 11:47-0500 Body mass index (BMI) [Ratio] 35.61 kg/m2 Gonsalo Blackwood MD Work Phone: [facility] 11-17-2022 11:47-0500 Body temperature 96.8 [degF] Gonsalo Blackwood MD Work Phone: [facility] 11-17-2022 11:47-0500 Body weight 97.07 kg Gonsalo Blackwood MD Work Phone: [facility] 11-17-2022 08:15-0500 Body height 165.1 cm Laya Barillas APRN.CNP Work Phone: [facility] 11-17-2022 08:15-0500 Body weight 96.57 kg Layamagdiel Barillas LINTER OPERATOR.RESIDENTIAL CARE OFFICER Work Phone: [facility] 11-17-2022 08:15-0500 Diastolic blood pressure 76 mm[Hg] Laya Barillas LINTER OPERATOR.RESIDENTIAL CARE OFFICER Work Phone: [facility] 11-17-2022 08:15-0500 Heart rate 86 /min Layamagdiel Barillas LINTER OPERATOR.RESIDENTIAL CARE OFFICER Work Phone: [facility] 11-17-2022 08:15-0500 Respiratory rate 18 /min Layamaritza Barillas LINTER OPERATOR.RESIDENTIAL CARE OFFICER Work Phone: [facility] 11-17-2022 08:15-0500 SaO2% (BldA) [Mass fraction] 96 % Laya Barillas LINTER OPERATOR.RESIDENTIAL CARE OFFICER Work Phone: [facility] 11-17-2022 08:15-0500 Systolic blood pressure 142 mm[Hg] Laya Eran LINTER OPERATOR.RESIDENTIAL CARE OFFICER Work Phone: [facility] 10-30-2022 14:22-0500 Body height 165.1 cm Fernie [facility] 10-30-2022 14:22-0500 Body temperature 97.34 [degF] Fernie [facility] 10-30-2022 14:22-0500 Body weight 93.1 kg Fernie [facility] 10-30-2022 14:22-0500 Diastolic blood pressure 63 mm[Hg] Fernie [facility] 10-30-2022 14:22-0500 Heart rate 70 /min Fernie [facility] 10-30-2022 14:22-0500 Respiratory rate 16 /min Fernie [facility] 10-30-2022 14:22-0500 SaO2% (BldA) [Mass fraction] 95 % Fernie [facility] 10-30-2022 14:22-0500 Systolic blood pressure 163 mm[Hg] Fernie [facility] 09-29-2022 14:01-0500 Diastolic blood pressure 64 mm[Hg] Naty Bhakta MD Work Phone: [facility] 09-29-2022 14:01-0500 Systolic blood pressure 139 mm[Hg] Naty Bhakta MD Work Phone: [facility] 09-29-2022 13:12-0500 Body height 165.1 cm Naty Bhakta MD Work Phone: [facility] 09-29-2022 13:12-0500 Body mass index (BMI) [Ratio] 34.96 kg/m2 Naty Bhakta MD Work Phone: [facility] 09-29-2022 13:12-0500 Body temperature 98.1 [degF] Naty Bhakta MD Work Phone: [facility] 09-29-2022 13:12-0500 Body weight 95.3 kg Naty Bhakta MD Work Phone: [facility] 09-29-2022 13:12-0500 Heart rate 85 /min Naty Bhakta MD Work Phone: [facility] 09-29-2022 13:12-0500 Respiratory rate 17 /min Naty Bhakta MD Work Phone: [facility] 09-29-2022 13:12-0500 SaO2% (BldA) [Mass fraction] 97 % Naty Bhakta MD Work Phone: [facility] 09-29-2022 09:05-0500 Body height 165.1 cm Dariusz Rangel MD Work Phone: [facility] 09-29-2022 09:05-0500 Body mass index (BMI) [Ratio] 34.45 kg/m2 Dariusz Rangel MD Work Phone: [facility] 09-29-2022 09:05-0500 Body weight 93.89 kg Dariusz Rangel MD Work Phone: [facility] 09-29-2022 09:05-0500 Diastolic blood pressure 64 mm[Hg] Dariusz Rangel MD Work Phone: [facility] 09-29-2022 09:05-0500 Systolic blood pressure 122 mm[Hg] Dariusz Rangel MD Work Phone: [facility] 08-20-2022 13:12-0400 Body height 165.1 cm Fernie Paredes DO Work Phone: [facility] 08-20-2022 13:12-0400 Body mass index (BMI) [Ratio] 35.74 kg/m2 Fernie Paredes DO Work Phone: [facility] 08-20-2022 13:12-0400 Body temperature 97.7 [degF] Fernie Paredes DO Work Phone: [employer] [facility] 08-20-2022 13:12-0400 Body weight 97.43 kg Fernie Paredes DO Work Phone: [facility] 08-20-2022 13:12-0400 Diastolic blood pressure 69 mm[Hg] Fernie Paredes DO Work Phone: [facility] 08-20-2022 13:12-0400 Heart rate 56 /min Fernie Paredes DO Work Phone: [facility] 08-20-2022 13:12-0400 Respiratory rate 16 /min Fernie Paredes DO Work Phone: [facility] 08-20-2022 13:12-0400 SaO2% (BldA) [Mass fraction] 98 % Fernie Paredes DO Work Phone: [facility] 08-20-2022 13:12-0400 Systolic blood pressure 129 mm[Hg] Fernie Paredes DO Work Phone: [facility] [employer] [facility] 08-09-2022 11:44-0400 Diastolic blood pressure 88 mm[Hg] Radha Saleh LINTER OPERATOR-RESIDENTIAL CARE OFFICER Work Phone: [facility] Comment on above: pt reports that she forgot to take her B P meds this AM 08-09-2022 11:44-0400 Systolic blood pressure 154 mm[Hg] Radha Saleh LINTER OPERATOR-RESIDENTIAL CARE OFFICER Work Phone: [facility] Comment on above: pt reports that she forgot to take her B P meds this AM 08-09-2022 11:11-0400 Body height 165.1 cm Radha Saleh LINTER OPERATOR-RESIDENTIAL CARE OFFICER Work Phone: [facility] [employer] [facility] 08-09-2022 11:11-0400 Body mass index (BMI) [Ratio] 36.44 kg/m2 Radha Saleh LINTER OPERATOR-RESIDENTIAL CARE OFFICER Work Phone: [facility] [employer] [facility] 08-09-2022 11:11-0400 Body weight 99.34 kg Radha Saleh LINTER OPERATOR-RESIDENTIAL CARE OFFICER Work Phone: [facility] 07-08-2022 13:53-0400 Body height 165.1 cm Dariusz Rangel MD Work Phone: [facility] [employer] [facility] 07-08-2022 13:53-0400 Body mass index (BMI) [Ratio] 35.78 kg/m2 Dariusz Rangel MD Work Phone: [facility] [employer] [facility] 07-08-2022 13:53-0400 Body weight 97.52 kg Dariusz Rangel MD Work Phone: [facility] 07-08-2022 13:53-0400 Diastolic blood pressure 58 mm[Hg] Dariusz Rangel MD Work Phone: [employer] [facility] 07-08-2022 13:53-0400 Systolic blood pressure 124 mm[Hg] Dariusz [facility]angel MD [facility] 06-17-2022 11:55-0400 Diastolic blood pressure 64 mm[Hg] Isreal Sigala MD Work Phone: [facility] 06-17-2022 11:55-0400 Heart rate 83 /min Isreal Sigala MD Work Phone: [facility] 06-17-2022 11:55-0400 Respiratory rate 20 /min Isreal Sigala MD Work Phone: [facility] 06-17-2022 11:55-0400 SaO2% (BldA) [Mass fraction] 93 % Isreal Sigala MD Work Phone: [facility] 06-17-2022 11:55-0400 Systolic blood pressure 165 mm[Hg] Isreal Sigala MD Work Phone: [facility] 06-17-2022 11:15-0400 Body temperature 97.5 [degF] Isreal Sigala MD Work Phone: [facility] 06-17-2022 08:29-0400 Body height 165.1 cm Isreal Sigala MD Work Phone: [facility] 06-17-2022 08:29-0400 Body mass index (BMI) [Ratio] 35.62 kg/m2 Isreal Sigala MD Work Phone: [facility] 06-17-2022 08:29-0400 Body weight 97.1 kg Isreal Sigala MD Work Phone: [facility] 06-07-2022 13:03-0400 Body height 165.1 cm Dariusz Rangel MD Work Phone: [facility] 06-07-2022 13:03-0400 Body mass index (BMI) [Ratio] 35.61 kg/m2 Dariusz Rangel MD Work Phone: [facility] 06-07-2022 13:03-0400 Body weight 97.07 kg Dariusz Rangel MD Work Phone: [facility] 06-07-2022 13:03-0400 Diastolic blood pressure 74 mm[Hg] Dariusz Rangel MD Work Phone: [facility] 06-07-2022 13:03-0400 Systolic blood pressure 126 mm[Hg] Dariusz Rangel MD Work Phone: [facility] 06-01-2022 09:10-0400 Body height 165.1 cm Avg Mayra Gal [id number] Nurse [facility] 06-01-2022 09:10-0400 Body mass index (BMI) [Ratio] 35.94 kg/m2 Avg Mayra Gal [id number] Nurse [facility] 06-01-2022 09:10-0400 Body weight 97.98 kg Avg Mayra Gal [id number] Nurse [facility] 06-01-2022 09:10-0400 Diastolic blood pressure 74 mm[Hg] Avg Mayra Gal [id number] [facility] 06-01-2022 09:10-0400 Systolic blood pressure 124 mm[Hg] Avg Mayra Gal [id number] [facility] 05-26-2022 12:54-0400 Body height 167.6 cm Fernie Paredes DO Work Phone: [facility] 05-26-2022 12:54-0400 Body mass index (BMI) [Ratio] 34.01 kg/m2 Fernie [facility]aredes DO [facility] Phone[facility] 05-26-2022 12:54-0400 Body temperature 98.4 [degF] Fernie Paredes DO Work Phone: [facility] 05-26-2022 12:54-0400 Body weight 95.57 kg Fernie Paredes DO [facility] 05-26-2022 12:54-0400 Diastolic blood pressure 79 mm[Hg] Fernie Paredes DO Work Phone: [employer] [facility] 05-26-2022 12:54-0400 Heart rate 70 /min Fernie Paredes DO Work Phone[facility] 05-26-2022 12:54-0400 Respiratory rate 16 /min Fernie Paredes DO Work Phone: [employer] [facility] 05-26-2022 12:54-0400 SaO2% (BldA) [Mass fraction] 96 % Fernie Paredes DO Work Phone: [facility] 05-26-2022 12:54-0400 Systolic blood pressure 144 mm[Hg] Fernie Paredes DO Work Phone: [facility] 04-16-2022 13:01-0400 Body height 167.6 cm Jonathan Cm RESIDENTIAL CARE OFFICER Work Phone: [facility] 04-16-2022 13:01-0400 Body mass index (BMI) [Ratio] 33.25 kg/m2 Jonathan Cm RESIDENTIAL CARE OFFICER Work Phone: [facility] 04-16-2022 [id number] Body weight 93.44 kg Jonathan Cm RESIDENTIAL CARE OFFICER Work Phone: [facility] 04-16-2022 13:01-0400 Respiratory rate 18 /min Jonathan Cm RESIDENTIAL CARE OFFICER Work Phone: [facility] 03-23-2022 13:16-0400 Body height 165.1 cm Fernie Paredes DO Work Phone: [facility] 03-23-2022 13:16-0400 Body mass index (BMI) [Ratio] 34.41 kg/m2 Fernie Paredes DO Work Phone: [facility] 03-23-2022 13:16-0400 Body temperature 97.11 [degF] Fernie Paredes DO Work Phone: [facility] 03-23-2022 13:16-0400 Body weight 93.8 kg Fernie Paredes DO Work Phone: [facility] 03-23-2022 13:16-0400 Diastolic blood pressure 78 mm[Hg] Fernie Paredes DO Work Phone: [facility] 03-23-2022 13:16-0400 Heart rate 65 /min Fernie Paredes DO Work Phone: [facility] 03-23-2022 13:16-0400 Respiratory rate 14 /min Fernie Paredes DO Work Phone: [facility] 03-23-2022 13:16-0400 SaO2% (BldA) [Mass fraction] 97 % Fernie Paredes DO Work Phone: [facility] [employer] [facility] 03-23-2022 13:16-0400 Systolic blood pressure 137 mm[Hg] Fernie Paredes DO Work Phone: [facility] 02-04-2022 08:49-0400 Body height 165.1 cm Garry Stephens MD Work Phone: [facility] 02-04-2022 08:49-0400 Body mass index (BMI) [Ratio] 34.45 kg/m2 Garry Stephens MD Work Phone: [facility] 02-04-2022 08:49-0400 Body weight 93.89 kg Garry Stephens MD Work Phone: [facility] 01-27-2022 13:25-0400 Body height 165.1 cm Washington Garner MD Work Phone: [facility] 01-27-2022 13:25-0400 Body mass index (BMI) [Ratio] 34.11 kg/m2 Washington Garner MD Work Phone: [facility] [employer] 01-27-2022 13:25-0400 Body weight 92.99 kg Washington Garner MD Work Phone: [facility] 01-27-2022 13:25-0400 Respiratory rate 18 /min Washington Garner MD Work Phone: [facility] 01-27-2022 13:25-0400 SaO2% (BldA) [Mass fraction] 98 % Washington Garner MD Work Phone: [facility] 02-13-2021 15:37-0400 Body height 165.1 cm Asad Sagastume DO Work Phone: [facility] 02-13-2021 15:37-0400 Body mass index (BMI) [Ratio] 34.45 kg/m2 Asad Sagastume DO Work Phone: [facility] 02-13-2021 15:37-0400 Body temperature 97.3 [degF] Asad Pavontings DO Work Phone: [facility] 02-13-2021 15:37-0400 Body weight 93.89 kg Asad Pavontings DO Work Phone: [facility] 02-13-2021 15:37-0400 Diastolic blood pressure 91 mm[Hg] Asad Tanika DO Work Phone: [facility] 02-13-2021 15:37-0400 Heart rate 82 /min Asad [place] DO Work Phone: [facility] 02-13-2021 15:37-0400 Respiratory rate 18 /min Asad Tanika DO Work Phone: [facility] 02-13-2021 15:37-0400 SaO2% (BldA) [Mass fraction] 97 % Asad [place] DO Work Phone: [facility] 02-13-2021 15:37-0400 Systolic blood pressure 170 mm[Hg] Asad Pritchetts DO Work Phone: [facility] 06-10-2017 09:43-0400 BMI (Body Mass Index) 37.94 kg/m2 [facility] Work Phone: 06-10-2017 09:43-0400 Body Temperature 97.3 [degF] [facility] Internal Medicine Work Phone: 06-10-2017 09:43-0400 BP Diastolic 76 mm[Hg] [facility] Internal Medicine Work Phone: Comment on above: Patient Position: Sitting; Cuff Location : Left Arm; Cuff Size: Standard 06-10-2017 09:43-0400 BP Systolic 118 mm[Hg] [facility] Internal Medicine Work Phone: Comment on above: Patient Position: Sitting; Cuff Location : Left Arm; Cuff Size: Standard 06-10-2017 09:43-0400 BSA (Body Surface Area) 2.09 m2 [facility] Work Phone: 06-10-2017 09:43-0400 Height 165.1 cm Elaine Oquendo [facility] Work Phone: 06-10-2017 09:43-0400 Pulse (Heart Rate) 68 /min Elaine Oquendo [facility] Work Phone: Comment on above: Pattern: Regular 06-10-2017 09:43-0400 Pulse Oximetry 96 % Elaine Oquendo [facility] Work Phone: Comment on above: Room air 06-10-2017 09:43-0400 Respiratory Rate 16 /min Elaine Oquendo [facility] Work Phone: Comment on above: Pattern: Unlabored 06-10-2017 09:43-0400 Weight 103.42 kg Elaine Oquendo [facility] Work Phone: 02-04-2017 09:17-0400 BMI (Body Mass Index) 37.94 kg/m2 Elaine Oquendo [facility] Internal Medicine Work Phone: 02-04-2017 09:17-0400 Body Temperature 97.7 [degF] [facility] Work Phone: 02-04-2017 09:17-0400 BP Diastolic 84 mm[Hg] Elaine Oquendo [facility] Work Phone: Comment on above: Patient Position: Sitting; Cuff Location : Left Arm; Cuff Size: Standard 02-04-2017 09:17-0400 BP Systolic 132 mm[Hg] [facility] Work Phone: Comment on above: Patient Position: Sitting; Cuff Location : Left Arm; Cuff Size: Standard 02-04-2017 09:17-0400 BSA (Body Surface Area) 2.09 m2 Elaine Oquendo [facility] Work Phone: 02-04-2017 09:17-0400 Height 165.1 cm Elaine Oquendo [facility] Work Phone: 02-04-2017 09:17-0400 Pulse (Heart Rate) 69 /min [facility] Work Phone: Comment on above: Pattern: Regular 02-04-2017 09:17-0400 Pulse Oximetry 95 % Elaine Oquendo [facility] Work Phone: Comment on above: Room air 02-04-2017 09:17-0400 Respiratory Rate 17 /min Elaine Oquendo [facility] Work Phone: Comment on above: Pattern: Unlabored 02-04-2017 09:17-0400 Weight 103.42 kg Elaine Oquendo [facility] Work Phone: 04-12-2016 08:36-0400 BMI (Body Mass Index) 38.27 kg/m2 Elaine Oquendo [facility] Internal Medicine Work Phone: 04-12-2016 08:36-0400 Body Temperature 97.2 [degF] Elaine Oquendo [facility] Work Phone: Comment on above: Method: Temporal 04-12-2016 08:36-0400 BP Diastolic 74 mm[Hg] Elaine Oquendo [facility] Work Phone: Comment on above: Patient Position: Sitting; Cuff Location : Left Arm; Cuff Size: Standard 04-12-2016 08:36-0400 BP Systolic 130 mm[Hg] Elaine Oquendo [facility] Work Phone: Comment on above: Patient Position: Sitting; Cuff Location : Left Arm; Cuff Size: Standard 04-12-2016 08:36-0400 BSA (Body Surface Area) 2.1 m2 Elaine Oquendo [facility] Work Phone: 04-12-2016 08:36-0400 Height 165.1 cm Elaine Oquendo [facility] Work Phone: 04-12-2016 08:36-0400 Pulse (Heart Rate) 69 /min Elaine Oquendo [facility] Work Phone: Comment on above: Pattern: Regular 04-12-2016 08:36-0400 Pulse Oximetry 95 % Elaine Oquendo [facility] Work Phone: Comment on above: Room air 04-12-2016 08:36-0400 Respiratory Rate 16 /min Elaine Oquendo [facility] Work Phone: Comment on above: Pattern: Unlabored 04-12-2016 08:36-0400 Weight 104.33 kg Elaine Oquendo [facility] Work Phone: 12-04-2015 07:00-0500 BMI (Body Mass Index) 38.94 kg/m2 [facility] Internal Medicine Work Phone: 12-04-2015 07:00-0500 Body Temperature 97.6 [degF] Elaine Oquendo [facility] Work Phone: Comment on above: Method: Temporal 12-04-2015 07:00-0500 BP Diastolic 84 mm[Hg] Elaine Oquendo [facility] Work Phone: Comment on above: Patient Position: Sitting; Cuff Location : Left Arm; Cuff Size: Large 12-04-2015 07:00-0500 BP Systolic 124 mm[Hg] Elaine Oquendo [facility] Work Phone: Comment on above: Patient Position: Sitting; Cuff Location : Left Arm; Cuff Size: Large 12-04-2015 07:00-0500 BSA (Body Surface Area) 2.11 m2 Elaine Oquendo [facility] Work Phone: 12-04-2015 07:00-0500 Height 165.1 cm Elaine Oquendo [facility] Work Phone: 12-04-2015 07:00-0500 Pulse (Heart Rate) 78 /min Elaine Oquendo [facility] Work Phone: Comment on above: Pattern: Regular 12-04-2015 07:00-0500 Pulse Oximetry 98 % Elaine Oquendo [facility] Work Phone: Comment on above: Room air 12-04-2015 07:00-0500 Respiratory Rate 20 /min Elaine Oquendo [facility] Work Phone: Comment on above: Pattern: Unlabored 12-04-2015 07:00-0500 Weight 106.14 kg Elaine Oquendo [facility] Work Phone: 07-23-2015 13:47-0400 BMI (Body Mass Index) 39 kg/m2 Elaine Altamirano radha Internal Medicine Work Phone: 07-23-2015 13:47-0400 Body Temperature 97.6 [degF] Elaine Oquendo [facility] Work Phone: 07-23-2015 13:47-0400 BP Diastolic 86 mm[Hg] Elaine Oquendo [facility] Work Phone: Comment on above: Patient Position: Sitting; Cuff Location : Left Arm; Cuff Size: Standard 07-23-2015 13:47-0400 BP Systolic 142 mm[Hg] Elaine Oquendo [facility] Work Phone: Comment on above: Patient Position: Sitting; Cuff Location : Left Arm; Cuff Size: Standard 07-23-2015 13:47-0400 BSA (Body Surface Area) 2.12 m2 Elaine Oquendo [facility] Work Phone: 07-23-2015 13:47-0400 Height 165.1 cm Elaine Oquendo [facility] Work Phone: 07-23-2015 13:47-0400 Pulse (Heart Rate) 92 /min Elaine Oquendo [facility] Work Phone: Comment on above: Pattern: Regular 07-23-2015 13:47-0400 Pulse Oximetry 97 % Elaine Oquendo [facility] Work Phone: Comment on above: Room air 07-23-2015 13:47-0400 Respiratory Rate 18 /min Elaine Oquendo [facility] Work Phone: Comment on above: Pattern: Unlabored 07-23-2015 13:47-0400 Weight 106.31 kg Elaine Oquendo [facility] Work Phone: 02-14-2015 08:30-0400 BMI (Body Mass Index) 38.27 kg/m2 Elaine Altamirano [facility] Internal Medicine Work Phone: 02-14-2015 08:30-0400 Body Temperature 100.8 [degF] Elaine Oquendo [facility] Work Phone: Comment on above: Method: Oral 02-14-2015 08:30-0400 BP Diastolic 84 mm[Hg] Elaine Oquendo [facility] Work Phone: Comment on above: Patient Position: Sitting; Cuff Location : Left Arm; Cuff Size: Large 02-14-2015 08:30-0400 BP Systolic 134 mm[Hg] Elaine Oquendo [facility] Work Phone: Comment on above: Patient Position: Sitting; Cuff Location : Left Arm; Cuff Size: Large 02-14-2015 08:30-0400 BSA (Body Surface Area) 2.1 m2 Elaine Oquendo [facility] Work Phone: 02-14-2015 08:30-0400 Height 165.1 cm Elaine Oquendo [facility] Work Phone: 02-14-2015 08:30-0400 Pulse (Heart Rate) 82 /min Elaine Oquendo [facility] Work Phone: Comment on above: Pattern: Regular 02-14-2015 08:30-0400 Pulse Oximetry 96 % Elaine Oquendo [facility] Work Phone: Comment on above: Room air 02-14-2015 08:30-0400 Respiratory Rate 20 /min Elaine Oquendo [facility] Work Phone: Comment on above: Pattern: Unlabored 02-14-2015 08:30-0400 Weight 104.33 kg Elaine Oquendo [facility] Work Phone: 10-22-2014 10:19-0500 BMI (Body Mass Index) 36.94 kg/m2 Elaine Oquendo [facility] Internal Medicine Work Phone: 10-22-2014 10:19-0500 Body Temperature 97.5 [degF] Elaine Oquendo [facility] Work Phone: Comment on above: Method: Temporal 10-22-2014 10:19-0500 BP Diastolic 74 mm[Hg] Elaine Oquendo [facility] Work Phone: Comment on above: Patient Position: Sitting; Cuff Location : Left Arm; Cuff Size: Standard 10-22-2014 10:19-0500 BP Systolic 128 mm[Hg] Elaine Oquendo [facility] Work Phone: Comment on above: Patient Position: Sitting; Cuff Location : Left Arm; Cuff Size: Standard 10-22-2014 10:190500 BSA (Body Surface Area) 2.07 m2 Elaine Haque Internal Medicine Work Phone: 10-22-2014 10:19-0500 Height 165.1 cm Elaine Oquendo [facility] Work Phone: 10-22-2014 10:19-0500 Pulse (Heart Rate) 74 /min Elaine Oquendo [facility] Work Phone: Comment on above: Pattern: Regular 10-22-2014 10:19-0500 Pulse Oximetry 98 % Elaine Oquendo [facility] Work Phone: Comment on above: Room air 10-22-2014 10:19-0500 Respiratory Rate 16 /min Elaine Oquendo [facility] Work Phone: Comment on above: Pattern: Unlabored 10-22-2014 10:19-0500 Weight 100.7 kg Elaine Oquendo [facility] Work Phone: 10-22-2014 10:15-0500 BMI (Body Mass Index) 36.94 kg/m2 Elaine Pruettens [facility] Internal Medicine Work Phone: 10-22-2014 10:150500 BSA (Body Surface Area) 2.07 m2 Elaine Oquendo [facility] Work Phone: 10-22-2014 10:150500 Height 165.1 cm Elaine Oquendo [facility] Work Phone: 10-22-2014 10:15-0500 Weight 100.7 kg Elaine Oquendo [facility] Work Phone: 04-29-2014 [id number]:[id number] BMI (Body Mass Index) 36.94 kg/m2 Elaine Oquendo [facility] Internal Medicine Work Phone: 04-29-2014 10:23-0400 Body Temperature 98 [degF] Elaine Oquendo [facility] Work Phone: Comment on above: Method: Oral 04-29-2014 10:23-0400 BP Diastolic 90 mm[Hg] Elaine Oquendo [facility] Work Phone: Comment on above: Patient Position: Sitting; Cuff Location : Left Arm; Cuff Size: Large 04-29-2014 10:23-0400 BP Systolic 144 mm[Hg] Elaine Oquendo [facility] Work Phone: Comment on above: Patient Position: Sitting; Cuff Location : Left Arm; Cuff Size: Large 04-29-2014 10:23-0400 BSA (Body Surface Area) 2.07 m2 Elaine Oquendo [facility] Work Phone: 04-29-2014 10:23040 Height 165.1 cm Elaine Oquendo [facility] Work Phone: 04-29-2014 10:23-0400 Pulse (Heart Rate) 68 /min Elaine Oquendo [facility] Work Phone: Comment on above: Pattern: Regular 04-29-2014 10:23-0400 Pulse Oximetry 97 % Elaine Oquendo [facility] Work Phone: Comment on above: Room air 04-29-2014 10:23-0400 Respiratory Rate 20 /min Elaine Oquendo [facility] Work Phone: Comment on above: Pattern: Unlabored 04-29-2014 10:23-0400 Weight 100.7 kg Elaine Oquendo [facility] Work Phone: 09-28-2013 13:33-0500 BMI (Body Mass Index) 34.78 kg/m2 Elaine Oquendo [facility] Internal Medicine Work Phone: 09-28-2013 13:33-0500 Body Temperature 98.2 [degF] Elaine Oquendo [facility] Work Phone: Comment on above: Method: Oral 09-28-2013 13:33-0500 BP Diastolic 84 mm[Hg] Elaine Oquendo [facility] Work Phone: Comment on above: Patient Position: Sitting; Cuff Location : Left Arm; Cuff Size: Standard 09-28-2013 13:33-0500 BP Systolic 126 mm[Hg] Elaine Oquendo [facility] Work Phone: Comment on above: Patient Position: Sitting; Cuff Location : Left Arm; Cuff Size: Standard 09-28-2013 13:33-0500 BSA (Body Surface Area) 2.02 m2 Elaine Oquendo [facility] Work Phone: 09-28-2013 13:33-0500 Height 165.1 cm Elaine Oquendo [facility] Work Phone: 09-28-2013 13:33-0500 Pulse (Heart Rate) 72 /min Elaine Oquendo [facility] Work Phone: Comment on above: Pattern: Regular 09-28-2013 13:33-0500 Respiratory Rate 20 /min Elaine Oquendo [facility] Work Phone: Comment on above: Pattern: Unlabored 09-28-2013 13:33-0500 Weight 94.8 kg Elaine Oquendo [facility] Work Phone: 09-03-2013 08:12-0500 BMI (Body Mass Index) 34.78 kg/m2 Elaine Oquendo [facility] Internal Medicine Work Phone: Comment on above: patient is nervous 09-03-2013 08:12-0500 Body Temperature 98 [degF] Elaine Oquendo [facility] Work Phone: Comment on above: Method: Oral patient is nervous 09-03-2013 08:12-0500 BP Diastolic 90 mm[Hg] Elaine Oquendo [facility] Work Phone: Comment on above: Patient Position: Sitting; Cuff Location : Left Arm; Cuff Size: Standard patient is nervous 09-03-2013 08:12-0500 BP Systolic 160 mm[Hg] Elaine Oquendo [facility] Work Phone: Comment on above: Patient Position: Sitting; Cuff Location : Left Arm; Cuff Size: Standard patient is nervous 09-03-2013 08:12-0500 BSA (Body Surface Area) 2.02 m2 Elaine Oquendo [facility] Work Phone: Comment on above: patient is nervous 09-03-2013 08:12-0500 Height 165.1 cm Elaine Oquendo [facility] Work Phone: Comment on above: patient is nervous 09-03-2013 08:12-0500 Pulse (Heart Rate) 78 /min Elaine Oquendo [facility] Work Phone: Comment on above: Pattern: Regular patient is nervous 09-03-2013 08:12-0500 Respiratory Rate 20 /min Elaine Oquendo [facility] Work Phone: Comment on above: Pattern: Unlabored patient is nervous 09-03-2013 08:12-0500 Weight 94.8 kg Elaine Oquendo [facility] Work Phone: Comment on above: patient is nervous 04-17-2013 10:59-0400 BMI (Body Mass Index) 32.98 kg/m2 Elaine Oquendo [facility] Internal Medicine Work Phone: 04-17-2013 10:59-0400 Body Temperature 98.4 [degF] Elaine Oquendo [facility] Work Phone: Comment on above: Method: Oral 04-17-2013 10:59-0400 BP Diastolic 84 mm[Hg] Elaine Oquendo [facility] Work Phone: Comment on above: Patient Position: Sitting; Cuff Location : Left Arm; Cuff Size: Standard 04-17-2013 10:59-0400 BP Systolic 146 mm[Hg] Elaine Oquendo [facility] Work Phone: Comment on above: Patient Position: Sitting; Cuff Location : Left Arm; Cuff Size: Standard 04-17-2013 10:59-0400 BSA (Body Surface Area) 1.97 m2 Elaine Oquendo [facility] Work Phone: 04-17-2013 10:59-0400 Height 165.1 cm Elaine Oquendo [facility] Work Phone: 04-17-2013 10:59-0400 Pulse (Heart Rate) 66 /min Elaine Oquendo [facility] Work Phone: Comment on above: Pattern: Regular 04-17-2013 10:59-0400 Pulse [facility]ximetry 96 % [facility] Work Phone: Comment on above: Room air 04-17-2013 10:59-0400 Respiratory Rate 16 /min Elaine Oquendo [facility] Work Phone: 04-17-2013 10:59-0400 Weight 89.9 kg Elaine Oquendo [facility] Work Phone: 03-01-2013 12:36-0400 BMI (Body Mass Index) 32.04 kg/m2 Elaine Oquendo [facility] Internal Medicine Work Phone: 03-01-2013 12:36-0400 Body Temperature 96.8 [degF] Elaine Oquendo [facility] Work Phone: Comment on above: Method: Temporal 03-01-2013 12:36-0400 BP Diastolic 84 mm[Hg] Elaine Oquendo [facility] Work Phone: Comment on above: Patient Position: Sitting; Cuff Location : Left Arm; Cuff Size: Standard 03-01-2013 12:36-0400 BP Systolic 122 mm[Hg] Elaine Oquendo [facility] Work Phone: Comment on above: Patient Position: Sitting; Cuff Location : Left Arm; Cuff Size: Standard 03-01-2013 12:36-0400 BSA (Body Surface Area) 1.95 m2 Elaine Oquendo [facility] Work Phone: 03-01-2013 12:36-0400 Height 165.1 cm Elaine Oquendo [facility] Work Phone: 03-01-2013 12:36-0400 Pulse (Heart Rate) 65 /min Elaine Oquendo [facility] Work Phone: Comment on above: Pattern: Regular 03-01-2013 12:36-0400 Pulse Oximetry 98 % Elaine Oquendo [facility] Work Phone: Comment on above: Room air 03-01-2013 12:36-0400 Respiratory Rate 16 /min Elaine Oquendo [facility] Medicine Work Phone: Comment on above: Pattern: Unlabored 03-01-2013 12:36-0400 Weight 87.35 kg Elaine Haque Internal Medicine Work Phone: 02-23-2013 07:22-0400 BMI (Body Mass Index) 31.88 kg/m2 Elaine Altamirano radha Internal Medicine Work Phone: 02-23-2013 07:22-0400 Body Temperature 97.6 [degF] Elaine Oquendo [facility] Work Phone: Comment on above: Method: Temporal 02-23-2013 07:22-0400 BP Diastolic 74 mm[Hg] Elaine Oquendo [facility] Work Phone: Comment on above: Patient Position: Sitting; Cuff Location : Left Arm; Cuff Size: Standard 02-23-2013 07:22-0400 BP Systolic 126 mm[Hg] Elaine Oquendo [facility] Work Phone: Comment on above: Patient Position: Sitting; Cuff Location : Left Arm; Cuff Size: Standard 02-23-2013 07:22-0400 BSA (Body Surface Area) 1.94 m2 Elaine Haque Internal Medicine Work Phone: 02-23-2013 07:22-0400 Height 165.1 cm Elaine Oquendo [facility] Work Phone: 02-23-2013 07:22-0400 Pulse (Heart Rate) 92 /min Elaine Oquendo [facility] Work Phone: Comment on above: Pattern: Regular 02-23-2013 07:22-0400 Pulse Oximetry 94 % Elaine Oquendo [facility] Work Phone: Comment on above: Room air 02-23-2013 07:22-0400 Respiratory Rate 16 /min Elaine Oquendo [facility] Work Phone: Comment on above: Pattern: Unlabored 02-23-2013 07:22-0400 Weight 86.89 kg Elaine Haque Internal Medicine Work Phone: 11-27-2012 08:49-0500 BMI (Body Mass Index) 31.54 kg/m2 Elaine Altamirano radha Internal Medicine Work Phone: 11-27-2012 08:49-0500 Body Temperature 98.8 [degF] Elaine Oquendo [facility] Work Phone: Comment on above: Method: Oral 11-27-2012 08:49-0500 BP Diastolic 90 mm[Hg] Elaine Oquendo [facility] Work Phone: Comment on above: Patient Position: Sitting; Cuff Location : Left Arm; Cuff Size: Standard 11-27-2012 08:49-0500 BP Systolic 166 mm[Hg] Elaine Oquendo [facility] Work Phone: Comment on above: Patient Position: Sitting; Cuff Location : Left Arm; Cuff Size: Standard 11-27-2012 08:49-0500 BSA (Body Surface Area) 1.93 m2 Elaine Oquendo [facility] Work Phone: 11-27-2012 08:49-0500 Height 165.1 cm Elaine Oquendo [facility] Work Phone: 11-27-2012 08:49-0500 Pulse (Heart Rate) 92 /min Elaine Oquendo [facility] Work Phone: Comment on above: Pattern: Regular 11-27-2012 08:49-0500 Pulse Oximetry 97 % Elaine Oquendo [facility] Work Phone: Comment on above: Room air 11-27-2012 08:49-0500 Respiratory Rate 22 /min Elaine Oquendo [facility] Work Phone: 11-27-2012 08:49-0500 Weight 85.99 kg Elaine Oquendo [facility] Work Phone: 10-12-2012 10:06-0500 BMI (Body Mass Index) 32.12 kg/m2 Elaine Oquendo [facility] Internal Medicine Work Phone: 10-12-2012 10:06-0500 Body Temperature 97.9 [degF] Elaine Oquendo [facility] Work Phone: Comment on above: Method: Oral 10-12-2012 10:06-0500 BP Diastolic 84 mm[Hg] Elaine Oquendo [facility] Work Phone: Comment on above: Patient Position: Sitting; Cuff Location : Left Arm; Cuff Size: Standard 10-12-2012 10:06-0500 BP Systolic 124 mm[Hg] Elaine Oquendo [facility] Work Phone: Comment on above: Patient Position: Sitting; Cuff Location : Left Arm; Cuff Size: Standard 10-12-2012 10:06-0500 BSA (Body Surface Area) 1.95 m2 Elaine Oquendo [facility] Work Phone: 10-12-2012 10:06-0500 Height 165.1 cm Elaine Oquendo [facility] Work Phone: 10-12-2012 10:06-0500 Pulse (Heart Rate) 74 /[facility] Work [facility]: Comment on above: Pattern: Regular 10-12-2012 10:06-0500 Respiratory Rate 18 /min Elaine Oquendo [facility] Work Phone: Comment on above: Pattern: Unlabored 10-12-2012 10:06-0500 Weight 87.54 kg Elaine Oquendo [facility] Work Phone: 09-08-2012 07:41-0500 BMI (Body Mass Index) 32.28 kg/m2 Elaine Oquendo [facility] Internal Medicine Work Phone: 09-08-2012 07:41-0500 Body Temperature 97.8 [degF] [facility] Work Phone: Comment on above: Method: Oral 09-08-2012 07:41-0500 BP Diastolic 76 mm[Hg] Elaine Oquendo [facility] Work Phone: Comment on above: Patient Position: Sitting; Cuff Location : Left Arm; Cuff Size: Standard 09-08-2012 07:41-0500 BP Systolic 142 mm[Hg] [facility] Work Phone: Comment on above: Patient Position: Sitting; Cuff Location : Left Arm; Cuff Size: Standard 09-08-2012 07:41-0500 BSA (Body Surface Area) 1.95 m2 [facility] Work Phone: 09-08-2012 07:41-0500 Height 165.1 cm Elaine Oquendo [facility] Work Phone: 09-08-2012 07:41-0500 Pulse (Heart Rate) 70 /min Elaine Oquendo [facility] Work Phone: Comment on above: Pattern: Regular 09-08-2012 07:41-0500 Respiratory Rate 18 /min Elaine Oquendo [facility] Work Phone: Comment on above: Pattern: Unlabored 09-08-2012 07:41-0500 Weight 88 kg Elaine Oquendo [facility] Work Phone: 12-03-2011 06:55-0500 BMI (Body Mass Index) 28.29 kg/m2 Elaine Oquendo [facility] Internal Medicine Work Phone: 12-03-2011 06:55-0500 Body Temperature 98.3 [degF] [facility] Work Phone: Comment on above: Method: Oral 12-03-2011 06:55-0500 BP Diastolic 72 mm[Hg] [facility] Work Phone: Comment on above: Patient Position: Sitting; Cuff Location : Left Arm; Cuff Size: Large 12-03-2011 06:55-0500 BP Systolic 160 mm[Hg] [facility] Work Phone: Comment on above: Patient Position: Sitting; Cuff Location : Left Arm; Cuff Size: Large 12-03-2011 06:55-0500 BSA (Body Surface Area) 1.85 m2 Elaine Oquendo [facility] Work Phone: 12-03-2011 06:55-0500 Height 165.1 cm Elaine Oquendo [facility] Work Phone: 12-03-2011 06:55-0500 Pulse (Heart Rate) 100 /min Elaine Oquendo [facility] Work Phone: Comment on above: Pattern: Regular 12-03-2011 06:55-0500 Respiratory Rate 16 /min [facility] Work Phone: Comment on above: Pattern: Unlabored 12-03-2011 06:55-0500 Weight 77.11 kg Elaine Oquendo [facility] Work Phone: 11-19-2011 07:18-0500 BMI (Body Mass Index) 28.95 kg/m2 Elaine Altamirano [facility] Internal Medicine Work Phone: 11-19-2011 07:18-0500 Body Temperature 97.6 [degF] Elaine Oquendo [facility] Work Phone: Comment on above: Method: Oral 11-19-2011 07:18-0500 BP Diastolic 80 mm[Hg] Elaine Oquendo [facility] Work Phone: Comment on above: Patient Position: Sitting; Cuff Location : Left Arm; Cuff Size: Standard 11-19-2011 07:18-0500 BP Systolic 124 mm[Hg] Elaine Oquendo [facility] Work Phone: Comment on above: Patient Position: Sitting; Cuff Location : Left Arm; Cuff Size: Standard 11-19-2011 07:18-0500 BSA (Body Surface Area) 1.86 m2 Elaine Oquendo [facility] Work Phone: 11-19-2011 07:18-0500 Height 165.1 cm Elaine Oquendo [facility] Work Phone: 11-19-2011 07:18-0500 Pulse (Heart Rate) 68 /min Elaine Oquendo [facility] Work Phone: Comment on above: Pattern: Regular 11-19-2011 07:18-0500 Respiratory Rate 20 /min Elaine Oquendo [facility] Work Phone: Comment on above: Pattern: Unlabored 11-19-2011 07:18-0500 Weight 78.93 kg Elaine Oquendo [facility] Work Phone: 10-21-2011 09:57-0500 BMI (Body Mass Index) 28.95 kg/m2 Elaine Altamirano [facility] Internal Medicine Work Phone: 10-21-2011 09:57-0500 Body Temperature 97.9 [degF] Elaine Oquendo [facility] Work Phone: Comment on above: Method: Oral 10-21-2011 09:57-0500 BP Diastolic 80 mm[Hg] Elaine Oquendo [facility] Work Phone: Comment on above: Patient Position: Sitting; Cuff Location : Left Arm; Cuff Size: Standard 10-21-2011 09:57-0500 BP Systolic 122 mm[Hg] Elaine Oquendo [facility] Work Phone: Comment on above: Patient Position: Sitting; Cuff Location : Left Arm; Cuff Size: Standard 10-21-2011 09:57-0500 BSA (Body Surface Area) 1.86 m2 Elaine Oquendo [facility] Work Phone: 10-21-2011 09:57-0500 Height 165.1 cm Elaine Oquendo [facility] Work Phone: 10-21-2011 09:57-0500 Pulse (Heart Rate) 74 /min Elaine Oquendo [facility] Work Phone: Comment on above: Pattern: Regular 10-21-2011 09:57-0500 Respiratory Rate 18 /min Elaine Oquendo [facility] Work Phone: Comment on above: Pattern: Unlabored 10-21-2011 09:57-0500 Weight 78.93 kg Elaine Oquendo [facility] Work Phone: 10-19-2011 09:14-0500 BMI (Body Mass Index) 28.95 kg/m2 Elaine Oquendo [facility] Internal Medicine Work Phone: 10-19-2011 09:14-0500 Body Temperature 98.2 [degF] Elaine Oquendo [facility] Work Phone: Comment on above: Method: Oral 10-19-2011 09:14-0500 BP Diastolic 78 mm[Hg] Elaine Oquendo [facility] Work Phone: Comment on above: Patient Position: Sitting; Cuff Location : Left Arm; Cuff Size: Standard 10-19-2011 09:14-0500 BP Systolic 122 mm[Hg] Elaine Oquendo [facility] Work Phone: Comment on above: Patient Position: Sitting; Cuff Location : Left Arm; Cuff Size: Standard 10-19-2011 09:14-0500 BSA (Body Surface Area) 1.86 m2 Elaine Oquendo [facility] Work Phone: 10-19-2011 09:14-0500 Height 165.1 cm Elaine Oquendo [facility] Work Phone: 10-19-2011 09:14-0500 Pulse (Heart Rate) 76 /min Elaine Oquendo [facility] Work Phone: Comment on above: Pattern: Regular 10-19-2011 09:14-0500 Respiratory Rate 18 /min Elaine Oquendo [facility] Work Phone: Comment on above: Pattern: Unlabored 10-19-2011 09:14-0500 Weight 78.93 kg Elaine Oquendo [facility] Work Phone: 09-03-2010 07:15-0500 BP Diastolic 60 mm[Hg] Elaine Oquendo [facility] Work Phone: Comment on above: Patient Position: Sitting; Cuff Location : Left Arm; Cuff Size: Large 09-03-2010 07:15-0500 BP Systolic 122 mm[Hg] Elaine Oquendo [facility] Work Phone: Comment on above: Patient Position: Sitting; Cuff Location : Left Arm; Cuff Size: Large 09-03-2010 07:15-0500 Pulse (Heart Rate) 68 /min Elaine Oquendo [facility] Work Phone: Comment on above: Pattern: Regular 09-03-2010 07:15-0500 Respiratory Rate 20 /min Elaine Oquendo [facility] Work Phone: Comment on above: Pattern: Unlabored 09-03-2010 07:15-0500 Weight 83.01 kg Elaine Oquendo [facility] Work Phone: 06-18-2010 08:45-0400 Body Temperature 97.9 [degF] Elaine Oquendo [facility] Work Phone: Comment on above: Method: Oral 06-18-2010 08:45-0400 BP Diastolic 78 mm[Hg] Elaine Oquendo [facility] Work Phone: Comment on above: Patient Position: Sitting; Cuff Location : Left Arm; Cuff Size: Standard 06-18-2010 08:45-0400 BP Systolic 118 mm[Hg] Elaine Oquendo [facility] Work Phone: Comment on above: Patient Position: Sitting; Cuff Location : Left Arm; Cuff Size: Standard 06-18-2010 08:45-0400 Pulse (Heart Rate) 74 /min Elaine Oquendo [facility] Work Phone: Comment on above: Pattern: Regular 06-18-2010 08:45-0400 Respiratory Rate 18 /min Elaine Oquendo [facility] Work Phone: Comment on above: Pattern: Unlabored 06-18-2010 08:45-0400 Weight 83.01 kg Elaine Oquendo [facility] Work Phone: 05-25-2010 14:51-0400 Body Temperature 97.9 [degF] Elaine Oquendo [facility] Work Phone: Comment on above: Method: Oral 05-25-2010 14:51-0400 BP Diastolic 78 mm[Hg] Elaine Oquendo [facility] Work Phone: Comment on above: Patient Position: Sitting; Cuff Location : Left Arm; Cuff Size: Standard 05-25-2010 14:51-0400 BP Systolic 120 mm[Hg] Elaine Oquendo [facility] Work Phone: Comment on above: Patient Position: Sitting; Cuff Location : Left Arm; Cuff Size: Standard 05-25-2010 14:51-0400 Pulse (Heart Rate) 78 /min Elaine Oquendo [facility] Work Phone: Comment on above: Pattern: Regular 05-25-2010 14:51-0400 Respiratory Rate 18 /min Elaine Oquendo [facility] Work Phone: Comment on above: Pattern: Unlabored 05-25-2010 14:51-0400 [facility] 82.1 [facility] Work Phone: 08-22-2008 11:43-0400 Body Temperature 97.7 [degF] Elaine Oquendo [facility] Work Phone: Comment on above: Method: Oral 08-22-2008 11:43-0400 BP Diastolic 84 mm[Hg] Elaine Oquendo [facility] Work Phone: Comment on above: Patient Position: Sitting; Cuff Location : Left Arm; Cuff Size: Large 08-22-2008 11:43-0400 BP Systolic 124 mm[Hg] Elaine Oquendo [facility] Work Phone: Comment on above: Patient Position: Sitting; Cuff Location : Left Arm; Cuff Size: Large 08-22-2008 11:43-0400 Head Circumference 0 cm [facility] Work Phone: 08-22-2008 11:43-0400 Height 0 cm [facility] Internal Medicine Work Phone: 08-22-2008 11:43-0400 Pulse (Heart Rate) 68 /min Elaine Oquendo [facility] Work Phone: Comment on above: Pattern: Regular 08-22-2008 11:43-0400 Respiratory Rate 16 /min Elaine Oquendo [facility] Work Phone: Comment on above: Pattern: Unlabored 08-22-2008 11:43-0400 Weight 93.9 kg [facility] Work Phone: 03-01-2008 07:48-0400 Body Temperature 98.2 [degF] Elaine Castellanosaram [facility] Medicine Work Phone: Comment on above: Method: Oral 03-01-2008 07:48-0400 BP Diastolic 80 mm[Hg] Elaine [facility] Internal Medicine Work Phone: Comment on above: Patient Position: Sitting; Cuff Location : Left Arm; Cuff Size: Standard 03-01-2008 07:48-0400 BP Systolic 126 mm[Hg] [facility] Work Phone: Comment on above: Patient Position: Sitting; Cuff Location : Left Arm; Cuff Size: Standard 03-01-2008 07:48-0400 Head Circumference 0 cm [facility] Work Phone: 03-01-2008 07:48-0400 Height 0 cm Elaine [facility] Internal Medicine Work Phone: 03-01-2008 07:48-0400 Pulse (Heart Rate) 70 /min [facility] Internal Medicine Work Phone: Comment on above: Pattern: Regular 03-01-2008 07:48-0400 Respiratory Rate 18 /min [facility] Work Phone: Comment on above: Pattern: Unlabored 03-01-2008 07:48-0400 Weight 95.26 kg Elaine [facility] Internal Medicine Work Phone: 01-26-2008 08:26-0400 BP Diastolic 88 mm[Hg] [facility] Internal Medicine Work Phone: Comment on above: Patient Position: Sitting; Cuff Location : Left Arm; Cuff Size: Standard 01-26-2008 08:26-0400 BP Systolic 160 mm[Hg] [facility] Work Phone: Comment on above: Patient Position: Sitting; Cuff Location : Left Arm; Cuff Size: Standard 01-26-2008 08:26-0400 Head Circumference 0 cm [facility] Internal Medicine Work Phone: 01-26-2008 08:26-0400 Height 0 cm [facility] Internal Medicine Work Phone: 01-26-2008 08:26-0400 Pulse (Heart Rate) 88 /min [facility] Internal Medicine Work Phone: Comment on above: Pattern: Regular 01-26-2008 08:26-0400 Respiratory Rate 16 /min [facility] Internal Medicine Work Phone: Comment on above: Pattern: Unlabored 01-26-2008 08:26-0400 Weight 0 kg [facility] Internal Medicine Work Phone: 12-26-2007 10:04-0500 Body Temperature 98.2 [degF] [facility] Internal Medicine Work Phone: Comment on above: Method: Oral 12-26-2007 10:04-0500 BP Diastolic 90 mm[Hg] Elaine Oquendo [facility] Work Phone: Comment on above: Patient Position: Sitting; Cuff Location : Left Arm; Cuff Size: Standard 12-26-2007 10:04-0500 BP Systolic 130 mm[Hg] Elaine Oquendo [facility] Work Phone: Comment on above: Patient Position: Sitting; Cuff Location : Left Arm; Cuff Size: Standard 12-26-2007 10:04-0500 Head Circumference 0 cm Elaine Oquendo [facility] Work Phone: 12-26-2007 10:04-0500 Height 0 cm Elaine Oquendo [facility] Work Phone: 12-26-2007 10:04-0500 Pulse (Heart Rate) 76 /min Elaine Oquendo [facility] Work Phone: Comment on above: Pattern: Regular 12-26-2007 10:04-0500 Respiratory Rate 18 /min Elaine Oquendo [facility] Work Phone: Comment on above: Pattern: Unlabored 12-26-2007 10:04-0500 Weight 96.62 kg Elaine Oquendo [facility] Work Phone: 10-11-2007 08:10-0500 Body Temperature 97.3 [degF] Elaine Oquendo [facility] Work Phone: Comment on above: Method: Oral 10-11-2007 08:10-0500 BP Diastolic 72 mm[Hg] Elaine Oquendo [facility] Work Phone: Comment on above: Patient Position: Sitting; Cuff Location : Left Arm; Cuff Size: Standard 10-11-2007 08:10-0500 BP Systolic 145 mm[Hg] Elaine Oquendo [facility] Work Phone: Comment on above: Patient Position: Sitting; Cuff Location : Left Arm; Cuff Size: Standard 10-11-2007 08:10-0500 Head Circumference 0 cm [facility] Work Phone: 10-11-2007 08:10-0500 Height 0 cm Elaine Oquendo [facility] Work Phone: 10-11-2007 08:10-0500 Pulse (Heart Rate) 84 /min [facility] Work Phone: Comment on above: Pattern: Regular 10-11-2007 08:10-0500 Respiratory Rate 18 /min Elaine Oquendo [facility] Work Phone: Comment on above: Pattern: Unlabored 10-11-2007 08:10-0500 Weight 0 kg Elaine Oquendo [facility] Work Phone: 05-10-2007 17:30-0400 Body Temperature 98.8 [degF] Elaine Oquendo [facility] Work Phone: Comment on above: Method: Oral 05-10-2007 17:30-0400 Head Circumference 0 cm Elaine Oquendo [facility] Work Phone: 05-10-2007 17:30-0400 Height 0 cm Elaine Oquendo [facility] Work Phone: 05-10-2007 17:30-0400 Pulse (Heart Rate) 74 /min [facility] Work Phone: Comment on above: Pattern: Regular 05-10-2007 17:30-0400 Respiratory Rate 16 /min Elaine Oquendo [facility] Work Phone: Comment on above: Pattern: Unlabored 05-10-2007 17:30-0400 Weight 0 kg Elaine Oquendo [facility] Work Phone: 03-08-2007 10:56-0400 Body Temperature 98.8 [degF] Elaine Oquendo [facility] Work Phone: Comment on above: Method: Oral 03-08-2007 10:56-0400 BP Diastolic 76 mm[Hg] Elaine Oquendo [facility] Work Phone: Comment on above: Patient Position: Sitting; Cuff Location : Left Arm; Cuff Size: Standard 03-08-2007 10:56-0400 BP Systolic 128 mm[Hg] Elaine Oquendo [facility] Work Phone: Comment on above: Patient Position: Sitting; Cuff Location : Left Arm; Cuff Size: Standard 03-08-2007 10:56-0400 Head Circumference 0 cm Elaine Oquendo [facility] Work Phone: 03-08-2007 10:56-0400 Height 0 cm Elaine Oquendo [facility] Work Phone: 03-08-2007 10:56-0400 Pulse (Heart Rate) 76 /min Elaine Oquendo [facility] Work Phone: Comment on above: Pattern: Regular 03-08-2007 10:56-0400 Respiratory Rate 19 /min Elaine Oquendo [facility] Work Phone: Comment on above: Pattern: Unlabored 03-08-2007 10:56-0400 Weight 97.52 kg Elaine Oquendo [facility] Work Phone: 02-08-2007 16:14-0400 Body Temperature 97.7 [degF] Elaine Oquendo [facility] Work Phone: Comment on above: Method: Oral 02-08-2007 16:14-0400 BP Diastolic 80 mm[Hg] Elaine Oquendo [facility] Work Phone: Comment on above: Patient Position: Sitting; Cuff Location : Left Arm; Cuff Size: Standard 02-08-2007 16:14-0400 BP Systolic 126 mm[Hg] Elaine Oquendo [facility] Work Phone: Comment on above: Patient Position: Sitting; Cuff Location : Left Arm; Cuff Size: Standard 02-08-2007 16:14-0400 Head Circumference 0 cm Elaine Oquendo [facility] Work Phone: 02-08-2007 16:14-0400 Height 0 cm Elaine Oquendo [facility] Work Phone: 02-08-2007 16:14-0400 Pulse (Heart Rate) 76 /min Elaine Oquendo [facility] Work Phone: Comment on above: Pattern: Regular 02-08-2007 16:14-0400 Respiratory Rate 20 /min Elaine Oquendo [facility] Work Phone: Comment on above: Pattern: Unlabored 02-08-2007 16:14-0400 Weight 0 kg Elaine Oquendo [facility] Work Phone: 12-29-2006 08:44-0500 Body Temperature 97.7 [degF] Elaine Oquendo [facility] Work Phone: Comment on above: Method: Oral 12-29-2006 08:44-0500 BP Diastolic 84 mm[Hg] Elaine Oquendo [facility] Work Phone: Comment on above: Patient Position: Sitting; Cuff Location : Left Arm; Cuff Size: Standard 12-29-2006 08:44-0500 BP Systolic 130 mm[Hg] Elaine Oquendo [facility] Work Phone: Comment on above: Patient Position: Sitting; Cuff Location : Left Arm; Cuff Size: Standard 12-29-2006 08:44-0500 Head Circumference 0 cm Elaine O[facility]endo [facility] Work Phone: 12-29-2006 08:44-0500 Height 0 cm Elaine Oquendo [facility] Work Phone: 12-29-2006 08:44-0500 Pulse (Heart Rate) 78 /min Elaine Oquendo [facility] Work Phone: Comment on above: Pattern: Regular 12-29-2006 08:44-0500 Respiratory Rate 22 /min Elaine Oquendo [facility] Work Phone: Comment on above: Pattern: Unlabored 12-29-2006 08:44-0500 Weight 97.52 kg Elaine Oquendo [facility] Work Phone: 11-30-2006 09:10-0500 BMI (Body Mass Index) 36.44 kg/m2 Elaine Oquendo [facility] Internal Medicine Work Phone: 11-30-2006 09:10-0500 Body Temperature 97.6 [degF] Elaine Oquendo [facility] Work Phone: Comment on above: Method: Oral 11-30-2006 09:10-0500 BP Diastolic 82 mm[Hg] Elaine Oquendo [facility] Work Phone: Comment on above: Patient Position: Sitting; Cuff Location : Left Arm; Cuff Size: Standard 11-30-2006 09:10-0500 BP Systolic 126 mm[Hg] Elaine Oquendo [facility] Work Phone: Comment on above: Patient Position: Sitting; Cuff Location : Left Arm; Cuff Size: Standard 11-30-2006 09:10-0500 BSA (Body Surface Area) 2.06 m2 Elaine Oquendo [facility] Work Phone: 11-30-2006 09:10-0500 Head Circumference 0 cm Elaine [facility] Work Phone: 11-30-2006 09:10-0500 Height 165.1 cm Elaine Oquendo [facility] Work Phone: 11-30-2006 09:10-0500 Pulse (Heart Rate) 70 /min Elaine Oquendo [facility] Work Phone: Comment on above: Pattern: Regular 11-30-2006 09:10-0500 Respiratory Rate 20 /min Elaine Oquendo [facility] Work Phone: Comment on above: Pattern: Unlabored 11-30-2006 09:10-0500 Weight 99.34 kg Elaine Oquendo [facility] Work Phone: Encounters Encounter Date Encounter Type Care Provider Facility Start: 10-11-2025 ambulatory [facility] M [facility] Start: 08-09-2025 ambulatory FERNIE M [facility] Start: 08-09-2025 End: 08-09-2025 Office outpatient visit 25 minutes Katina William APRN-RESIDENTIAL CARE OFFICER Work Phone: [facility] Comment on above: Cluneal neuropathy ( Primary Dx); Myofascial pain; Lumbar spondylosis; Spinal stenosis, lumbar region, with neurogenic claudication Start: 07-09-2025 ambulatory FERNIE M [facility] Start: 07-09-2025 End: 07-09-2025 Office outpatient visit 25 minutes Deepali Joe RESIDENTIAL CARE OFFICER Work Phone: [facility] Comment on above: Strain of thoracic p araspinal muscles excluding T1 and T2 levels, initial encounter (Primary Dx); Spinal stenosis, lumbar region, with neurogenic claudication; Cluneal neuropathy; Other low back pain; Myofascial pain; Right-sided thoracic back pain, unspecified chronicity Start: 06-27-2025 End: 06-27-2025 Office outpatient visit 15 minutes Dawn Uriarte DPM Work Phone: [facility] Comment on above: Skin ulcer of fourth toe of left foot, limited to breakdown of skin (Primary Dx); Plantar fasciitis; Pain of left foot Start: 06-27-2025 [facility] Start: 06-20-2025 End: 06-20-2025 Office outpatient visit 40 minutes Fernie Paredes DO Work Phone: [facility] Comment on above: Type 2 diabetes elmira itus with stage 3a chronic kidney disease, without long-term current use of insulin (Primary Dx); Stage 3a chronic kidney disease; Bilateral carotid artery stenosis-30% Right, 60% Left; Spondylosis of cervical region without myelopathy or radiculopathy; B12 deficiency; Folate deficiency; Macrocytosis; Chronic midline low back pain without sciatica; CLL (chronic lymphocytic leukemia); PVC's (premature ventricular contractions); Essential hypertension; Gastroesophageal reflux disease without esophagitis; Chronic sinusitis, unspecified location; Non-seasonal allergic rhinitis, unspecified trigger; Elevated LFTs; Former smoker-Quit 2011; Moderate persistent asthma without complication; Hypertriglyceridemia; Hiatal hernia; PERCY on CPAP-Off BiPAP due to intolerance and uses oral appliance; Insomnia, unspecified type; Vitamin D deficiency; Fatty liver; Primary osteoarthritis of both knees; S/P total knee arthroplasty, right; ETOH abuse; S/P unilateral salpingo-oophorectomy; Internal and external hemorrhoids without complication; Renal cyst, right; Duodenal diverticulum; Paroxysmal atrial fibrillation; Hepatomegaly; Chronic obstructive pulmonary disease, unspecified COPD type; Esophagitis, Clyo grade A; Obesity (BMI 30.0-34.9); Idiopathic chronic gout without tophus, unspecified site; Hyperlipidemia LDL goal <70; Fatty food intolerance; Seborrheic keratosis, inflamed-Left thigh-S/P Excision; Low HDL (under 40); Anxiety and depression; Allergic conjunctivitis of both eyes; Combined forms of age-related cataract, bilateral; Bilateral dry eyes; Irregular astigmatism of right eye; Regular astigmatism of left eye; Pinguecula of both eyes; Blepharitis of upper eyelids of both eyes, unspecified type; Fatigue, unspecified type; ASCUS of cervix with negative high risk HPV; Unspecified amblyopia, right eye; Hypermetropia of left eye; Myopia of right eye; Presbyopia; S/P cataract extraction and insertion of intraocular lens, unspecified laterality; Spondylosis of lumbar region without myelopathy or radiculopathy; Other idiopathic scoliosis, lumbar region; Esophageal stenosis; Chronic gastritis without bleeding, unspecified gastritis type; Mixed stress and urge incontinence; Spinal stenosis of lumbar region without neurogenic claudication; Primary osteoarthritis of both hips-Mild; Osteopenia determined by x-ray; HNP (herniated nucleus pulposus), lumbar-Multi level; Bradycardia; Vision loss of left eye; Central retinal artery occlusion of left eye; Hyponatremia; Hypertensive heart disease without heart failure; Family history of Alzheimer's disease-Father; Pulmonary emphysema, unspecified emphysema type; Chronic anticoagulation; PCO (posterior capsular opacification), left; Pseudophakia of both eyes; Hypomagnesemia; Hypoproteinemia; Left renal stone; PAC (premature atrial contraction); 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; Lumbar foraminal stenosis; History of [id number] 09-30-2020; Uterine leiomyoma, unspecified location; Atherosclerosis of abdominal aorta; Hyperthyroidism; Other optic atrophy, left eye; Posterior capsular opacification non visually significant, both eyes-L>R; Presence of Watchman left atrial appendage closure device; Orthostasis; Sacroiliitis; Iron deficiency anemia, unspecified iron deficiency anemia type; Primary osteoarthritis of left knee; Caffeine use; Calcification of aorta; Odynophagia; Family history of hypertension in mother; Osteoarthritis of left knee, unspecified osteoarthritis type; History of CVA (cerebrovascular accident) [facility] Start: 06-17-[facility]25 [facility] Start: 06-17-2025 End: 06-17-2025 Subsequent hospital visit by physician Dawn Uriarte DPM Work Phone: [facility] Comment on above: Arrived Start: 06-15-2025 ambulatory FERNIE Zaidi [facility] Start: 06-13-2025 ambulatory FERNIE Zaidi [facility] Start: 06-07-2025 ambulatory FERNIE Zaidi [facility] Start: 06-07-2025 End: 06-07-2025 Subsequent hospital visit by physician Katina William LINTER OPERATOR[employer] Work Phone: [facility] CT Scan Comment on above: Arrived Start: 06-07-2025 End: 06-07-2025 Subsequent hospital visit by physician Katina William LINTER OPERATOR[employer] Work Phone: [facility] MRI Comment on above: Arrived Start: 06-07-2025 ambulatory FERINE Zaidi [facility] Start: 05-30-2025 End: 05-30-2025 Office outpatient visit 15 minutes Dawn Uriarte DPM Work Phone: [facility] Comment on above: Skin ulcer of fourth toe of left foot, limited to breakdown of skin (Primary Dx); Plantar fasciitis; Pain of left foot Start: 05-30-2025 ambulatory FERNIE Zaidi [facility] Start: 05-22-2025 End: 05-22-2025 Patient encounter procedure iCro Lyles MD Work Phone: Ophthalmology Comment on above: Status post eye surg kun (Primary Dx); Pseudophakia of both eyes; Central retinal artery occlusion, left eye; Optic atrophy of left eye Start: 05-22-2025 End: 05-22-2025 ambulatory CIRO LYLES Facility:[facility] Start: 05-20-2025 End: 05-20-2025 Office outpatient new 45 minutes Katina William LINTER OPERATOR-RESIDENTIAL CARE OFFICER Work Phone: [facility] Comment on above: Spinal stenosis, lum bar region, with neurogenic claudication (Primary Dx); Cluneal neuropathy; Other low back pain; Encounter for medication monitoring Start: 05-20-2025 ambulatory FERNIE M [facility] Start: 05-16-2025 End: 05-16-2025 Office outpatient visit 25 minutes Dawn Uriarte DPArtem Work Phone: [facility] Comment on above: Toe pain, left (Prim yessenia Dx) Start: 05-16-2025 End: 05-16-2025 Subsequent hospital visit by physician Dawn Uriarte DPArtem Work Phone: [facility] Comment on above: Arrived Start: 05-16-2025 ambulatory [place] Artem [facility] Start: 05-15-2025 End: 05-15-2025 Patient encounter procedure Ciro Lyles MD Work Phone: Ophthalmology Comment on above: 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, right (Primary Dx); Pseudophakia of both eyes; Central retinal artery occlusion, left eye; Optic atrophy of left eye Start: 05-15-2025 End: 05-15-2025 ambulatory CIRO LYLES Facility:[facility] Start: 05-10-2025 End: 05-10-2025 Subsequent hospital visit by physician Monse Shipley MD Work Phone: [facility] Comment on above: Arrived Start: 05-10-2025 End: 05-10-2025 Office outpatient new 30 minutes Monse Shipley MD Work Phone: [facility] Disease Comment on above: Open wound of fourth toe of left foot, sequela (Primary Dx); Recurrent infections Start: 05-10-2025 ambulatory [facility] Start: 05-06-2025 ambulatory [facility] Start: 05-06-2025 End: 05-06-2025 Subsequent hospital visit by physician Isreal Sigala MD Work Phone: [facility] Comment on above: Arrived Start: 04-04-2025 End: 04-05-2025 Emergency department patient visit Geronimo Harper DO Work Phone: [facility] Comment on above: Depression, unspecif ied depression type (Primary Dx); Alcohol use disorder; Chronic prescription benzodiazepine use; Benzodiazepine withdrawal without complication (Multi); Nonspecific chest pain Start: 03-26-2025 End: 03-26-2025 Office outpatient visit 40 minutes Fernie Paredes DO Work Phone: [facility] Comment on above: Type 2 diabetes elmira itus with stage 3a chronic kidney disease, without long-term current use of insulin (Primary Dx); Idiopathic chronic gout without tophus, unspecified site; Hypoproteinemia; Iron deficiency anemia, unspecified iron deficiency anemia type; PVC's (premature ventricular contractions); Stage 3a chronic kidney disease; B12 deficiency; Spondylosis of lumbar region without myelopathy or radiculopathy; Spondylosis of cervical region without myelopathy or radiculopathy; Spinal stenosis of lumbar region without neurogenic claudication; Chronic midline low back pain with left-sided sciatica; Pulmonary emphysema, unspecified emphysema type; PERCY on CPAP-Off BiPAP due to intolerance; Non-seasonal allergic rhinitis, unspecified trigger; Hyperthyroidism; Moderate persistent asthma without complication; Hiatal hernia; Chronic sinusitis, unspecified location; Folate deficiency; Chronic obstructive pulmonary disease, unspecified COPD type; Presence of Watchman left atrial appendage closure device; Paroxysmal atrial fibrillation; PAC (premature atrial contraction); Internal and external hemorrhoids without complication; Hypertensive heart disease without heart failure; Essential hypertension; Orthostasis; History of CVA (cerebrovascular accident)-ischemic; Central retinal artery occlusion of left eye; Calcification of aorta; Bradycardia; Bilateral carotid artery stenosis-30% Right, 60% Left; Atherosclerosis of abdominal aorta; Vitamin D deficiency; Hepatomegaly; Gastroesophageal reflux disease without esophagitis; Odynophagia; Fatty liver; Esophagitis, Clyo grade A; Esophageal stenosis; Duodenal diverticulum; Chronic gastritis without bleeding, unspecified gastritis type; Hypomagnesemia; Hypertriglyceridemia; Hyperlipidemia LDL goal <70; Unspecified amblyopia, right eye; Regular astigmatism of left eye; Posterior capsular opacification non visually significant, both eyes-L>R; Pinguecula of both eyes; PCO (posterior capsular opacification), left; Other optic atrophy, left eye; Hypermetropia of left eye; Combined forms of age-related cataract, bilateral; Blepharitis of upper eyelids of both eyes, unspecified type; Allergic conjunctivitis of both eyes; Blurred vision, bilateral; Primary osteoarthritis of left knee; Primary osteoarthritis of both knees; Primary osteoarthritis of both hips-Mild; Other idiopathic scoliosis, lumbar region; Osteopenia determined by x-ray; Osteoarthritis of left knee, unspecified osteoarthritis type; HNP (herniated nucleus pulposus), lumbar-Multi level; Uterine leiomyoma, unspecified location; Renal cyst, right; Mixed stress and urge incontinence; Left renal stone; Seborrheic keratosis, inflamed-Left thigh-S/P Excision; CLL (chronic lymphocytic leukemia); Macrocytosis; Vision loss of left eye; Sacroiliitis; Pseudophakia of both eyes; Presbyopia; Obesity (BMI 30.0-34.9); Myopia of right eye; Low HDL (under 40); Irregular astigmatism of right eye; Insomnia, unspecified type; Hyponatremia; Fatty food intolerance; Former smoker-Quit 2011; Fatigue, unspecified type; Episodic lightheadedness; Elevated LFTs; Chronic anticoagulation; 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; Bilateral dry eyes; ASCUS of cervix with negative high risk HPV; Anxiety and depression; Family history of Alzheimer's disease-Father; Family history of hypertension in mother; History of cataract extraction, unspecified laterality; History of [id number] 09-30-2020; History of ETOH abuse; S/P total knee arthroplasty, right; S/P unilateral salpingo-oophorectomy Start: 03-26-2025 ambulatory FERNIE Zaidi [facility] Start: 03-06-2025 ambulatory FERNIE Zaidi [facility] Start: 03-06-2025 End: 03-06-2025 Subsequent hospital visit by physician Fernie Paredes DO Work Phone: [facility]amm[facility] Comment on above: Arrived Start: 02-22-2025 End: 02-22-2025 Patient encounter status Keshawn Nunez MD Work Phone: [facility] Work Phone: Start: 02-22-2025 End: 02-22-2025 Periodic preventive med est patient 65yrs& older Keshawn Nunez MD Work Phone: [facility] Comment on above: Wellness examination (Primary Dx) Start: 02-22-2025 ambulatory [facility] Start: 02-05-2025 End: 02-05-2025 Office outpatient visit 25 minutes Delilah Ellis DO Work Phone: [facility] Gastroenterology Comment on above: Esophageal spasm Start: 02-05-2025 ambulatory FERNIE Zaidi [facility] Start: 01-30-2025 End: 01-30-2025 ambulatory [facility] Start: 2025 End: 2025 ambulatory [facility] Start: 01-18-2025 End: 01-18-2025 ambulatory [facility] Start: 01-16-2025 End: 01-16-2025 ambulatory [facility] Start: 01-14-2025 ambulatory FERNIE Zaidi [facility] Start: 01-14-2025 End: 01-14-2025 Subsequent hospital visit by physician Delilah Ellis DO Work Phone: [facility] Comment on above: Arrived Start: 01-11-2025 End: 01-11-2025 ambulatory [facility] Start: 01-09-2025 End: 01-09-2025 ambulatory [facility] Start: 01-08-2025 ambulatory FERNIE Zaidi [facility] Start: 01-08-2025 End: 01-08-2025 Subsequent hospital visit by physician Fernie Paredes DO Work Phone: [facility] Ultrasound Comment on above: Arrived Start: 01-03-2025 End: 01-03-2025 ambulatory GONSALO LE [facility] Start: 12-31-2024 End: 12-31-2024 Office outpatient visit 40 minutes Fernie Paredes DO Work Phone: [facility] Comment on above: Type 2 diabetes elmira itus with stage 3a chronic kidney disease, without long-term current use of insulin (Primary Dx); Idiopathic chronic gout without tophus, unspecified site; Hypoproteinemia; Hypomagnesemia; Hypertriglyceridemia; Hyperthyroidism; Hyperlipidemia LDL goal <70; Vitamin D deficiency; Odynophagia; Iron deficiency anemia, unspecified iron deficiency anemia type; Hepatomegaly; CLL (chronic lymphocytic leukemia); Macrocytosis; Stage 3a chronic kidney disease; Gastroesophageal reflux disease without esophagitis; Folate deficiency; Elevated LFTs; Fatty liver; Esophagitis, Clyo grade A; Esophageal stenosis; Duodenal diverticulum; Chronic gastritis without bleeding, unspecified gastritis type; B12 deficiency; PVC's (premature ventricular contractions); Presence of Watchman left atrial appendage closure device; Paroxysmal atrial fibrillation; PAC (premature atrial contraction); Orthostasis; Ischemic stroke; Episodic lightheadedness; Chronic obstructive pulmonary disease, unspecified COPD type; Hiatal hernia; Chronic sinusitis, unspecified location; Moderate persistent asthma without complication; PERCY on CPAP-Off BiPAP due to intolerance; Non-seasonal allergic rhinitis, unspecified trigger; Pulmonary emphysema, unspecified emphysema type; Atherosclerosis of abdominal aorta; Bilateral carotid artery stenosis-30% Right, 60% Left; Bradycardia; Calcification of aorta; Central retinal artery occlusion of left eye; Essential hypertension; Hypertensive heart disease without heart failure; Internal and external hemorrhoids without complication; History of CVA (cerebrovascular accident); Allergic conjunctivitis of both eyes; Blepharitis of upper eyelids of both eyes, unspecified type; Combined forms of age-related cataract, bilateral; Chronic midline low back pain without sciatica; Hypermetropia of left eye; Other optic atrophy, left eye; PCO (posterior capsular opacification), left; Pinguecula of both eyes; Posterior capsular opacification non visually significant, both eyes-L>R; Regular astigmatism of left eye; Unspecified amblyopia, right eye; HNP (herniated nucleus pulposus), lumbar-Multi level; Osteoarthritis of left knee, unspecified osteoarthritis type; Osteopenia determined by x-ray; Other idiopathic scoliosis, lumbar region; Primary osteoarthritis of both hips-Mild; Primary osteoarthritis of both knees; Primary osteoarthritis of left knee; Spinal stenosis of lumbar region without neurogenic claudication; Spondylosis of cervical region without myelopathy or radiculopathy; Spondylosis of lumbar region without myelopathy or radiculopathy; Left renal stone; Mixed stress and urge incontinence; Renal cyst, right; Uterine leiomyoma, unspecified location; Seborrheic keratosis, inflamed-Left thigh-S/P Excision; Anxiety and depression; ASCUS of cervix with negative high risk HPV; Bilateral dry eyes; 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; Chronic anticoagulation; Fatigue, unspecified type; Fatty food intolerance; Former smoker-Quit 2011; Hyponatremia; Insomnia, unspecified type; Irregular astigmatism of right eye; Low HDL (under 40); Myopia of right eye; Obesity (BMI 30.0-34.9); Presbyopia; Pseudophakia of both eyes; Sacroiliitis; Vision loss of left eye; S/P unilateral salpingo-oophorectomy; S/P total knee arthroplasty, right; History of ETOH abuse; History of [id number] 09-30-2020; History of cataract extraction, unspecified laterality; Family history of hypertension in mother; Family history of Alzheimer's disease-Father; Encounter for screening mammogram for breast cancer; Asymptomatic postmenopausal state Start: 12-31-2024 ambulatory FERNIE Artem REGGIE [facility] Start: 12-31-2024 ambulatory FERNIE Artem REGGIE [facility] Start: 12-28-2024 End: 12-28-2024 ambulatory [facility] Start: 12-26-2024 End: 12-26-2024 Postop follow up visit related to original px Shi Son Work Phone: [facility]oped[facility] Comment on above: S/P total knee arthr oplasty, left (Primary Dx) Start: 12-26-2024 ambulatory FERNIE M REGGIE [facility] Start: 12-25-2024 End: 12-25-2024 Office outpatient new 30 minutes Delilah Ellis DO Work Phone: [facility] Gastroenterology Comment on above: Dysphagia, unspecifi ed type (Primary Dx); Esophageal dysmotility Start: 12-25-2024 ambulatory FERNIE Zaidi [facility] Start: 12-18-2024 End: 12-18-2024 ambulatory [facility] Start: 12-13-2024 End: 12-13-2024 ambulatory [facility] Start: 12-11-2024 End: 12-11-2024 ambulatory [facility] Start: 12-05-2024 [facility] Start: 12-05-2024 End: 12-05-2024 Subsequent hospital visit by physician Shi Son Work Phone: [facility]trasound Comment on above: Arrived Start: 12-05-2024 End: 12-05-2024 Postop follow up visit related to original px Shi Son Work Phone: [facility] Comment on above: History of total kne e arthroplasty, left (Primary Dx); Pain of left calf; Calf swelling; Acute postoperative pain of left knee Start: 12-05-2024 End: 12-05-2024 Subsequent hospital visit by physician Shi Son Work Phone: [facility] Start: 12-05-2024 ambulatory FERNIE Zaidi [facility] Start: 11-30-2024 End: 11-30-2024 ambulatory [facility] Start: 11-29-2024 ambulatory FERNIE Zaidi [facility] Start: 11-29-2024 End: 11-29-2024 Subsequent hospital visit by physician Delilah Ellis DO Work Phone: [facility]iology Comment on above: Arrived Start: 11-22-2024 End: 11-22-2024 ambulatory [facility] Start: 11-20-2024 End: 11-20-2024 ambulatory [facility] Start: 11-14-2024 End: 11-14-2024 ambulatory FERNIE ANAIDKATYA [facility] Start: 11-12-2024 End: 11-13-2024 ambulatory FERNIE PAREDES [facility] Start: 11-12-2024 End: 11-13-2024 Subsequent hospital visit by physician Gonsalo Blackwood MD Work Phone: [facility] Med Surg Comment on above: Osteoarthritis of le ft knee Start: 11-01-2024 End: 11-01-2024 Office outpatient visit 40 minutes Fernie Paredes DO Work Phone: [facility] Comment on above: Type 2 diabetes elmira itus with stage 3a chronic kidney disease, without long-term current use of insulin (Primary Dx); Hyperlipidemia LDL goal <70; Hyperthyroidism; Hypertriglyceridemia; Hypomagnesemia; Hypoproteinemia; Idiopathic chronic gout without tophus, unspecified site; Vitamin D deficiency; Hepatomegaly; Odynophagia; Gastroesophageal reflux disease without esophagitis; Folate deficiency; Fatty liver; Esophagitis, Clyo grade A; Esophageal stenosis; Duodenal diverticulum; Chronic gastritis without bleeding, unspecified gastritis type; B12 deficiency; PVC's (premature ventricular contractions); Presence of Watchman left atrial appendage closure device; Paroxysmal atrial fibrillation; PAC (premature atrial contraction); Ischemic stroke; Internal and external hemorrhoids without complication; Hypertensive heart disease without heart failure; Essential hypertension; Cerebrovascular accident (CVA), unspecified mechanism; Central retinal artery occlusion of left eye; Bradycardia; Bilateral carotid artery stenosis-30% Right, 60% Left; Atherosclerosis of abdominal aorta; Pulmonary emphysema, unspecified emphysema type; PERCY on CPAP-Off BiPAP due to intolerance; Non-seasonal allergic rhinitis, unspecified trigger; Moderate persistent asthma without complication; Hiatal hernia; Chronic sinusitis, unspecified location; Chronic obstructive pulmonary disease, unspecified COPD type; Iron deficiency anemia, unspecified iron deficiency anemia type; Left renal stone; Mixed stress and urge incontinence; Stage 3a chronic kidney disease; Renal cyst, right; Uterine leiomyoma, unspecified location; CLL (chronic lymphocytic leukemia); Elevated LFTs; Chronic anticoagulation; Fatigue, unspecified type; Fatty food intolerance; Bilateral dry eyes; 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; Macrocytosis; Hyponatremia; Insomnia, unspecified type; Irregular astigmatism of right eye; Low HDL (under 40); Myopia of right eye; Orthostasis; Obesity (BMI 30.0-34.9); Presbyopia; Pseudophakia of both eyes; Sacroiliitis; Vision loss of left eye; Anxiety and depression; ASCUS of cervix with negative high risk HPV; Seborrheic keratosis, inflamed-Left thigh-S/P Excision; Spondylosis of lumbar region without myelopathy or radiculopathy; Spondylosis of cervical region without myelopathy or radiculopathy; Spinal stenosis of lumbar region without neurogenic claudication; Primary osteoarthritis of left knee; Primary osteoarthritis of both knees; Primary osteoarthritis of both hips-Mild; Other idiopathic scoliosis, lumbar region; Osteopenia determined by x-ray; HNP (herniated nucleus pulposus), lumbar-Multi level; Unspecified amblyopia, right eye; Regular astigmatism of left eye; Posterior capsular opacification non visually significant, both eyes-L>R; PCO (posterior capsular opacification), left; Pinguecula of both eyes; Other optic atrophy, left eye; Calcification of aorta; Lacunar infarction; Hypermetropia of left eye; Combined forms of age-related cataract, bilateral; Allergic conjunctivitis of both eyes; Blepharitis of upper eyelids of both eyes, unspecified type; Chronic midline low back pain without sciatica; Former smoker-Quit 2011; History of cataract extraction, unspecified laterality; History of [id number] 09-30-2020; History of ETOH abuse; Family history of hypertension in mother; Family history of Alzheimer's disease-Father; S/P total knee arthroplasty, right; S/P unilateral salpingo-oophorectomy Start: 11-01-2024 ambulatory FERNIE PAREDES [facility] Start: 10-31-2024 Patient encounter status Fernando Davison MD Work Phone: [facility] Start: 10-31-2024 End: 10-31-2024 Office outpatient visit 25 minutes Fernando Davison MD Work Phone: [facility] Nephrology 2 Comment on above: Chronic kidney disea se, stage II (mild) (Primary Dx) Start: 10-31-2024 ambulatory FERNIE Zaidi [facility] Start: 10-31-2024 ambulatory FERNIE Zaidi [facility] [facility] Start: 10-31-2024 ambulatory FERNIE PAREDES [facility] Start: 10-29-2024 End: 04-02-2025 Documentation procedure Rose Mary Zepeda MA [facility] Comment on above: PAF (paroxysmal atri al fibrillation) (HCC) (Primary Dx) Start: 10-29-2024 End: 10-29-2024 Office outpatient visit 15 minutes Brian Brush CNP Work Phone: [facility] Comment on above: Atrial fibrillation, unspecified type (HCC) (Primary Dx) Start: 10-29-2024 ambulatory FERNIE PAREDES [facility] Start: 10-29-2024 End: 10-29-2024 Subsequent hospital visit by physician Delilah Ellis DO Work Phone: [facility] Start: 10-29-2024 [facility] Start: 10-23-2024 End: 10-23-2024 Office outpatient new 45 minutes Delilah Ellis DO Work Phone: [facility] Comment on above: Dysphagia, unspecifi ed type (Primary Dx); Iron deficiency anemia, unspecified iron deficiency anemia type Start: 10-23-2024 ambulatory FERNIE PAREDES [facility] Start: 10-15-2024 ambulatory FERNIE PAREDES [facility] Start: 10-15-2024 Encounter for other preprocedural examination [facility]ONS[facility] Start: 10-09-2024 End: 10-09-2024 Office outpatient visit 25 minutes Fernie Paredes DO Work Phone: [facility] Comment on above: Type 2 diabetes elmira itus with stage 3a chronic kidney disease, without long-term current use of insulin (Primary Dx); Stage 3a chronic kidney disease; Hyperlipidemia LDL goal <70; Hyperthyroidism; Hypertriglyceridemia; Hypomagnesemia; Iron deficiency anemia, unspecified iron deficiency anemia type; Idiopathic chronic gout without tophus, unspecified site; Hypoproteinemia; Vitamin D deficiency; Hepatomegaly; Gastroesophageal reflux disease without esophagitis; Folate deficiency; Odynophagia; Fatty liver; Esophagitis, Clyo grade A; Esophageal stenosis; Duodenal diverticulum; Chronic gastritis without bleeding, unspecified gastritis type; B12 deficiency; PVC's (premature ventricular contractions); Paroxysmal atrial fibrillation; Presence of Watchman left atrial appendage closure device; PAC (premature atrial contraction); Ischemic stroke; Internal and external hemorrhoids without complication; Hypertensive heart disease without heart failure; Essential hypertension; Cerebrovascular accident (CVA), unspecified mechanism; Central retinal artery occlusion of left eye; Bradycardia; Bilateral carotid artery stenosis-30% Right, 60% Left; Atherosclerosis of abdominal aorta; Pulmonary emphysema, unspecified emphysema type; PERCY on CPAP-Off BiPAP due to intolerance; Non-seasonal allergic rhinitis, unspecified trigger; Moderate persistent asthma without complication; Hiatal hernia; Chronic sinusitis, unspecified location; Chronic obstructive pulmonary disease, unspecified COPD type; Allergic conjunctivitis of both eyes; Blepharitis of upper eyelids of both eyes, unspecified type; Chronic midline low back pain without sciatica; Combined forms of age-related cataract, bilateral; Hypermetropia of left eye; Lacunar infarction; Other optic atrophy, left eye; PCO (posterior capsular opacification), left; Pinguecula of both eyes; Posterior capsular opacification non visually significant, both eyes-L>R; Regular astigmatism of left eye; Unspecified amblyopia, right eye; HNP (herniated nucleus pulposus), lumbar-Multi level; Osteopenia determined by x-ray; Other idiopathic scoliosis, lumbar region; Primary osteoarthritis of both knees; Primary osteoarthritis of both hips-Mild; Spinal stenosis of lumbar region without neurogenic claudication; Spondylosis of cervical region without myelopathy or radiculopathy; Spondylosis of lumbar region without myelopathy or radiculopathy; Renal cyst, right; Mixed stress and urge incontinence; Left renal stone; Uterine leiomyoma, unspecified location; Seborrheic keratosis, inflamed-Left thigh-S/P Excision; Primary osteoarthritis of left knee; CLL (chronic lymphocytic leukemia); Macrocytosis; Anxiety and depression; ASCUS of cervix with negative high risk HPV; Chronic anticoagulation; 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; Bilateral dry eyes; Elevated LFTs; Fatigue, unspecified type; Fatty food intolerance; Hyponatremia; Insomnia, unspecified type; Irregular astigmatism of right eye; Low HDL (under 40); Myopia of right eye; Obesity (BMI 30.0-34.9); Pseudophakia of both eyes; Presbyopia; Sacroiliitis; Vision loss of left eye; S/P unilateral salpingo-oophorectomy; S/P total knee arthroplasty, right; History of ETOH abuse; History of [id number] 09-30-2020; History of cataract extraction, unspecified laterality; Former smoker-Quit 2012; Family history of Alzheimer's disease-Father; Family history of hypertension in mother Start: 10-09-2024 ambulatory FERNIE Zaidi [facility] Start: 10-02-2024 End: 10-02-2024 ambulatory CIRO LYLES Facility:[facility] Start: 10-02-2024 End: 10-02-2024 Patient encounter procedure Ciro Lyles MD Work Phone: Ophthalmology Comment on above: After cataract not o bscuring vision, bilateral (Primary Dx); Pseudophakia of both eyes; Optic atrophy of left eye; Essential hypertension; Hypercholesteremia Start: 09-19-2024 End: 09-19-2024 Office outpatient visit 25 minutes Naty Bhakta MD Work Phone: Division of Hematology [facility] On[facility] Comment on above: CLL (chronic lymphoc ytic leukemia) (Primary Dx) Start: 09-19-2024 ambulatory NATY BHAKTA [facility] ity:[facility] Start: 08-30-2024 End: 08-30-2024 Office outpatient visit 40 minutes Gonsalo Blackwood MD Work Phone: [facility] Comment on above: Left knee pain, unsp ecified chronicity (Primary Dx) Start: 08-30-2024 ambulatory FERNIE Cosbyta On [facility] Start: 08-23-2024 ambulatory FERNIE Zaidi On [facility] Start: 08-15-2024 ambulatory FRENIE Zaidi [facility] Start: 08-15-2024 End: 08-15-2024 Subsequent hospital visit by physician Isreal Sigala MD Work Phone: [facility] Comment on above: Arrived Start: 08-14-2024 End: 08-14-2024 ambulatory [facility] Start: 08-07-2024 End: 08-07-2024 ambulatory [facility] Start: 07-17-2024 End: 07-17-2024 ambulatory [facility] Start: 07-10-2024 End: 09-17-2024 Office outpatient visit 25 minutes Fernie Paredes DO Work Phone: [facility] Comment on above: Type 2 diabetes elmira itus with stage 3a chronic kidney disease, without long-term current use of insulin (Primary Dx); Hyperlipidemia LDL goal <70; Hyperthyroidism; Hypertriglyceridemia; Hypomagnesemia; Idiopathic chronic gout without tophus, unspecified site; Hypoproteinemia; Stage 3a chronic kidney disease; Mixed stress and urge incontinence; Left renal stone; Iron deficiency anemia, unspecified iron deficiency anemia type; Renal cyst, right; Uterine leiomyoma, unspecified location; B12 deficiency; PVC's (premature ventricular contractions); Presence of Watchman left atrial appendage closure device; Paroxysmal atrial fibrillation; PAC (premature atrial contraction); Ischemic stroke; Internal and external hemorrhoids without complication; Hypertensive heart disease without heart failure; Essential hypertension; Cerebrovascular accident (CVA), unspecified mechanism; Central retinal artery occlusion of left eye; Odynophagia; Bradycardia; Bilateral carotid artery stenosis-30% Right, 60% Left; Atherosclerosis of abdominal aorta; Pulmonary emphysema, unspecified emphysema type; PERCY on CPAP-Off BiPAP due to intolerance; Non-seasonal allergic rhinitis, unspecified trigger; Elevated LFTs; Moderate persistent asthma without complication; Hiatal hernia; Chronic sinusitis, unspecified location; Chronic obstructive pulmonary disease, unspecified COPD type; Folate deficiency; Fatty liver; Hepatomegaly; Vitamin D deficiency; Gastroesophageal reflux disease without esophagitis; Esophagitis, Clyo grade A; Esophageal stenosis; Duodenal diverticulum; Chronic gastritis without bleeding, unspecified gastritis type; Chronic midline low back pain without sciatica; Combined forms of age-related cataract, bilateral; Hypermetropia of left eye; Lacunar infarction; Blepharitis of upper eyelids of both eyes, unspecified type; Allergic conjunctivitis of both eyes; Other optic atrophy, left eye; PCO (posterior capsular opacification), left; Pinguecula of both eyes; Posterior capsular opacification non visually significant, both eyes-L>R; Regular astigmatism of left eye; Unspecified amblyopia, right eye; Spondylosis of lumbar region without myelopathy or radiculopathy; Spondylosis of cervical region without myelopathy or radiculopathy; Spinal stenosis of lumbar region without neurogenic claudication; Sacroiliitis; Primary osteoarthritis of both knees; Primary osteoarthritis of both hips-Mild; Other idiopathic scoliosis, lumbar region; Osteopenia determined by x-ray; HNP (herniated nucleus pulposus), lumbar-Multi level; Seborrheic keratosis, inflamed-Left thigh-S/P Excision; CLL (chronic lymphocytic leukemia); Macrocytosis; Anxiety and depression; ASCUS of cervix with negative high risk HPV; Bilateral dry eyes; 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; Chronic anticoagulation; Fatigue, unspecified type; Fatty food intolerance; Hyponatremia; Insomnia, unspecified type; Irregular astigmatism of right eye; Low HDL (under 40); Myopia of right eye; Obesity (BMI 30.0-34.9); Presbyopia; Pseudophakia of both eyes; Former smoker-Quit 2011; History of cataract extraction, unspecified laterality; History of [id number] 09-30-2020; History of ETOH abuse; Vision loss of left eye; S/P unilateral salpingo-oophorectomy; S/P total knee arthroplasty, right; Family history of Alzheimer's disease-Father Start: 07-09-2024 End: 07-09-2024 ambulatory [facility] Start: 07-03-2024 End: 07-03-2024 ambulatory [facility] Start: 06-29-2024 End: 06-29-2024 ambulatory SILVIA MCNEILL [facility] Start: 06-19-2024 End: 06-19-2024 ambulatory [facility] Start: 06-12-2024 End: 06-12-2024 ambulatory [facility] Start: 05-31-2024 End: 05-31-2024 ambulatory [facility] Start: 05-22-2024 End: 05-22-2024 Office outpatient visit 15 minutes Brian Brush CNP Work Phone: [facility] Comment on above: Atrial fibrillation, unspecified type (HCC) (Primary Dx) Start: 05-22-2024 End: 05-26-2024 ambulatory [facility] Start: 05-15-2024 End: 05-15-2024 Subsequent hospital visit by physician Isreal Sigala MD Work Phone: [facility] Comment on above: Arrived Start: 05-03-2024 End: 05-03-2024 ambulatory [facility] Start: 05-03-2024 End: 05-03-2024 Subsequent hospital visit by physician Isreal Sigala MD Work Phone: [facility] Periop Comment on above: Sacroiliitis Start: 04-17-2024 End: 04-17-2024 Office outpatient visit 40 minutes Fernie Paredes DO Work Phone: [facility] Comment on above: Type 2 diabetes elmira itus with stage 3a chronic kidney disease, without long-term current use of insulin (Primary Dx); Hyperlipidemia LDL goal <70; Hyperthyroidism; Hypertriglyceridemia; Hypomagnesemia; Hypoproteinemia; Idiopathic chronic gout without tophus, unspecified site; Vitamin D deficiency; Hepatomegaly; Gastroesophageal reflux disease without esophagitis; Folate deficiency; Fatty liver; Esophagitis, Clyo grade A; Esophageal stenosis; Duodenal diverticulum; Chronic gastritis without bleeding, unspecified gastritis type; B12 deficiency; PVC's (premature ventricular contractions); Presence of Watchman left atrial appendage closure device; Paroxysmal atrial fibrillation; PAC (premature atrial contraction); Ischemic stroke; Internal and external hemorrhoids without complication; Hypertensive heart disease without heart failure; Essential hypertension; Cerebrovascular accident (CVA), unspecified mechanism; Central retinal artery occlusion of left eye; Bradycardia; Bilateral carotid artery stenosis-30% Right, 60% Left; Atherosclerosis of abdominal aorta; Pulmonary emphysema, unspecified emphysema type; PERCY on CPAP-Off BiPAP due to intolerance; Non-seasonal allergic rhinitis, unspecified trigger; Moderate persistent asthma without complication; Hiatal hernia; Chronic sinusitis, unspecified location; Chronic obstructive pulmonary disease, unspecified COPD type; Chronic midline low back pain without sciatica; Blepharitis of upper eyelids of both eyes, unspecified type; Allergic conjunctivitis of both eyes; Combined forms of age-related cataract, bilateral; Hypermetropia of left eye; Lacunar infarction; Other optic atrophy, left eye; Sacroiliitis; PCO (posterior capsular opacification), left; Unspecified amblyopia, right eye; Regular astigmatism of left eye; Posterior capsular opacification non visually significant, both eyes-L>R; Pinguecula of both eyes; HNP (herniated nucleus pulposus), lumbar-Multi level; Osteopenia determined by x-ray; Other idiopathic scoliosis, lumbar region; Primary osteoarthritis of both hips-Mild; Primary osteoarthritis of both knees; Spinal stenosis of lumbar region without neurogenic claudication; Spondylosis of cervical region without myelopathy or radiculopathy; Spondylosis of lumbar region without myelopathy or radiculopathy; Anemia, unspecified type; Left renal stone; Mixed stress and urge incontinence; Renal cyst, right; Stage 3a chronic kidney disease; Uterine leiomyoma, unspecified location; Seborrheic keratosis, inflamed-Left thigh-S/P Excision; CLL (chronic lymphocytic leukemia); Macrocytosis; Anxiety and depression; ASCUS of cervix with negative high risk HPV; Elevated LFTs; Chronic anticoagulation; 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; Bilateral dry eyes; Fatigue, unspecified type; Fatty food intolerance; Hyponatremia; Insomnia, unspecified type; Irregular astigmatism of right eye; Low HDL (under 40); Myopia of right eye; Obesity (BMI 30.0-34.9); Presbyopia; Pseudophakia of both eyes; Former smoker-Quit 2011; Vision loss of left eye; S/P unilateral salpingo-oophorectomy; S/P total knee arthroplasty, right; History of ETOH abuse; History of [id number] 09-30-2020; History of cataract extraction, unspecified laterality; History of anemia; Family history of Alzheimer's disease Start: 04-17-2024 ambulatory [facility] Start: 04-17-2024 Encounter for other preprocedural examination [facility] Start: 04-17-2024 ambulatory [facility] Start: 04-04-2024 End: 04-04-2024 Office outpatient visit 15 minutes Aviva Mera CNP Work Phone: [facility] Endocrinology Comment on above: Abnormal thyroid sti mulating hormone (TSH) level (Primary Dx); Dysphagia, unspecified type Start: 04-02-2024 End: 04-02-2024 Patient encounter procedure Ciro Lyles MD Work Phone: Ophthalmology Comment on above: After cataract not o bscuring vision, bilateral (Primary Dx); Pseudophakia of both eyes; Optic atrophy of left eye; Essential hypertension; Hypercholesteremia Start: 03-20-2024 End: 03-20-2024 Subsequent hospital visit by physician Aviva Mera CNP Work Phone: [facility] Comment on above: Arrived Start: 03-12-2024 End: 03-12-2024 Office outpatient new 45 minutes Aviva Mera CNP Work Phone: [facility] Endocrinology Comment on above: Abnormal thyroid sti mulating hormone (TSH) level (Primary Dx); Dysphagia, unspecified type; Hyperthyroidism Start: 02-20-2024 End: 02-20-2024 Subsequent hospital visit by physician Isreal Sigala MD Work Phone: [facility] CT Scan Comment on above: Arrived Start: 01-23-2024 End: 01-23-2024 Office outpatient visit 25 minutes Fernie Paredes DO Work Phone: [facility] Comment on above: Type 2 diabetes elmira itus with stage 3a chronic kidney disease, without long-term current use of insulin (Primary Dx); Hyperlipidemia LDL goal <70; Anemia, unspecified type; Stage 3a chronic kidney disease; Hyperthyroidism; Hypertriglyceridemia; Hypomagnesemia; Hypoproteinemia; Idiopathic chronic gout without tophus, unspecified site; Vitamin D deficiency; Hepatomegaly; Gastroesophageal reflux disease without esophagitis; Folate deficiency; Fatty liver; B12 deficiency; Chronic gastritis without bleeding, unspecified gastritis type; Esophagitis, Clyo grade A; Esophageal stenosis; Duodenal diverticulum; PVC's (premature ventricular contractions); Paroxysmal atrial fibrillation; PAC (premature atrial contraction); Ischemic stroke; Internal and external hemorrhoids without complication; Hypertensive heart disease without heart failure; Essential hypertension; Cerebrovascular accident (CVA), unspecified mechanism; Central retinal artery occlusion of left eye; Bradycardia; Bilateral carotid artery stenosis-30% Right, 60% Left; Atherosclerosis of abdominal aorta; Pulmonary emphysema, unspecified emphysema type; PERCY on CPAP-Off BiPAP due to intolerance; Non-seasonal allergic rhinitis, unspecified trigger; Moderate persistent asthma without complication; Hiatal hernia; Chronic sinusitis, unspecified location; Chronic obstructive pulmonary disease, unspecified COPD type; Allergic conjunctivitis of both eyes; Blepharitis of upper eyelids of both eyes, unspecified type; Chronic midline low back pain without sciatica; Combined forms of age-related cataract, bilateral; Hypermetropia of left eye; Lacunar infarction; PCO (posterior capsular opacification), left; Pinguecula of both eyes; Regular astigmatism of left eye; Unspecified amblyopia, right eye; HNP (herniated nucleus pulposus), lumbar-Multi level; Osteopenia determined by x-ray; Other idiopathic scoliosis, lumbar region; Primary osteoarthritis of both hips-Mild; Primary osteoarthritis of both knees; Spinal stenosis of lumbar region without neurogenic claudication; Spondylosis of cervical region without myelopathy or radiculopathy; Spondylosis of lumbar region without myelopathy or radiculopathy; Left renal stone; Mixed stress and urge incontinence; Renal cyst, right; Uterine leiomyoma, unspecified location; Seborrheic keratosis, inflamed-Left thigh-S/P Excision; CLL (chronic lymphocytic leukemia); Macrocytosis; Anxiety and depression; Elevated LFTs; Chronic anticoagulation; 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; Bilateral dry eyes; ASCUS of cervix with negative high risk HPV; Fatigue, unspecified type; Fatty food intolerance; Former smoker-Quit 2011; Insomnia, unspecified type; Irregular astigmatism of right eye; Low HDL (under 40); Myopia of right eye; Obesity (BMI 30.0-34.9); Hyponatremia; Presbyopia; Pseudophakia of both eyes; Vision loss of left eye; S/P total knee arthroplasty, right; S/P unilateral salpingo-oophorectomy; History of anemia; History of cataract extraction, unspecified laterality; History of [id number] 09-30-2020; History of ETOH abuse; Family history of Alzheimer's disease; Other optic atrophy, left eye; Posterior capsular opacification non visually significant, both eyes-L>R Start: 01-23-2024 End: 01-23-2024 Subsequent hospital visit by physician Isreal Sigala MD Work Phone: [facility] Comment on above: Arrived Start: 01-10-2024 End: 01-10-2024 Subsequent hospital visit by physician Garry Stephens MD Work Phone: [facility] Procedure Images Comment on above: Arrived Start: 01-10-2024 End: 01-10-2024 Office outpatient visit 15 minutes Garry Stephens MD Work Phone: [facility] Comment on above: 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); Pain of right sacroiliac joint; Lumbar spondylosis; Spondylolisthesis of lumbar region; Sacroiliitis Start: 01-10-2024 ambulatory GARRY STEPHENS [facility] Start: 01-06-2024 End: 01-06-2024 Office outpatient visit 15 minutes Aguilar Alexandra [facility] Work Phone: [facility] Comment on above: Atrial fibrillation, unspecified type (HCC) (Primary Dx) Start: 01-06-2024 End: 01-10-2024 ambulatory [facility] Start: 11-25-2023 Orders Only Jurgen Holden RN [facility] Comment on above: Atrial fibrillation, unspecified type (HCC) (Primary Dx) Start: 11-24-2023 End: 11-24-2023 Evaluation and management of inpatient [facility] Start: 11-18-2023 End: 11-22-2023 ambulatory [facility] Start: 11-18-2023 End: 11-22-2023 Encounter for other preprocedural examination [facility] Start: 11-15-2023 Documentation procedure Jurgen Holden RN [facility] Start: 11-11-2023 Documentation procedure Jurgen Holden RN [facility] Start: 11-08-2023 Documentation procedure Jurgen Holden RN [facility] Comment on above: Preop testing (Prima ry Dx); Atrial fibrillation, unspecified type (HCC) Preop testing (Prima ry Dx) Atrial fibrillation, unspecified type (HCC) (Primary Dx) Start: 11-08-2023 Patient encounter status Tomeka Ponce RN [facility] Start: 11-08-2023 End: 11-08-2023 Office outpatient new 60 minutes Kandice Christie MD Work Phone: [facility] Comment on above: Atrial fibrillation, unspecified type (HCC) (Primary Dx); CLL (chronic lymphocytic leukemia) (HCC); NHL (nodular histiocytic lymphoma) (HCC); Essential hypertension Start: 11-08-2023 End: 11-08-2023 ambulatory KANDICE CHRISTIE [facility] Start: 11-08-2023 ambulatory FERNIE PAREDES [facility] Start: 11-02-2023 End: 11-02-2023 Office outpatient visit 10 minutes Monse Shipley MD Work Phone: [facility] Infectious Disease Comment on above: Open wound of fourth toe of left foot, sequela (Primary Dx); Healthcare maintenance Start: 11-02-2023 End: 11-02-2023 Patient encounter status Monse Shipley MD Work Phone: [facility] Start: 10-31-2023 End: 10-31-2023 Office outpatient visit 25 minutes Fernie Paredes DO Work Phone: [facility] Comment on above: Type 2 diabetes elmira itus with stage 3a chronic kidney disease, without long-term current use of insulin (Primary Dx); B12 deficiency; Hyperlipidemia LDL goal <70; Hypertriglyceridemia; Hypoproteinemia; Hypomagnesemia; Idiopathic chronic gout without tophus, unspecified site; Anemia, unspecified type; Stage 3a chronic kidney disease; Chronic gastritis without bleeding, unspecified gastritis type; Duodenal diverticulum; Esophageal stenosis; Esophagitis, Clyo grade A; Folate deficiency; Fatty liver; Gastroesophageal reflux disease without esophagitis; Hepatomegaly; Vitamin D deficiency; Bilateral carotid artery stenosis-30% Right, 60% Left; Central retinal artery occlusion of left eye; Bradycardia; Cerebrovascular accident (CVA), unspecified mechanism; Hypertensive heart disease without heart failure; Essential hypertension; Internal and external hemorrhoids without complication; Atherosclerosis of abdominal aorta; Ischemic stroke; Paroxysmal atrial fibrillation; PAC (premature atrial contraction); PVC's (premature ventricular contractions); Chronic sinusitis, unspecified location; Chronic obstructive pulmonary disease, unspecified COPD type; Hiatal hernia; Moderate persistent asthma without complication; Pulmonary emphysema, unspecified emphysema type; PERCY on CPAP-Off BiPAP due to intolerance; Non-seasonal allergic rhinitis, unspecified trigger; 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; Unspecified amblyopia, right eye; Regular astigmatism of left eye; Pinguecula of both eyes; PCO (posterior capsular opacification), left; Lacunar infarction; Hypermetropia of left eye; Combined forms of age-related cataract, bilateral; Chronic midline low back pain without sciatica; Allergic conjunctivitis of both eyes; Blepharitis of upper eyelids of both eyes, unspecified type; Spondylosis of lumbar region without myelopathy or radiculopathy; Spinal stenosis of lumbar region without neurogenic claudication; Spondylosis of cervical region without myelopathy or radiculopathy; Primary osteoarthritis of both knees; Uterine leiomyoma, unspecified location; Primary osteoarthritis of both hips-Mild; Other idiopathic scoliosis, lumbar region; Osteopenia determined by x-ray; HNP (herniated nucleus pulposus), lumbar-Multi level; Open wound of fourth toe of left foot, sequela; Renal cyst, right; Mixed stress and urge incontinence; Left renal stone; Seborrheic keratosis, inflamed-Left thigh-S/P Excision; CLL (chronic lymphocytic leukemia); Macrocytosis; History of [id number] 09-30-2020; Vision loss of left eye; Pseudophakia of both eyes; Presbyopia; Obesity (BMI 30.0-34.9); Myopia of right eye; Low HDL (under 40); Irregular astigmatism of right eye; Hyponatremia; Insomnia, unspecified type; Fatty food intolerance; Fatigue, unspecified type; Elevated LFTs; Chronic anticoagulation; Bilateral dry eyes; ASCUS of cervix with negative high risk HPV; Anxiety and depression; S/P unilateral salpingo-oophorectomy; S/P total knee arthroplasty, right; History of ETOH abuse; History of cataract extraction, unspecified laterality; Former smoker-Quit 2011; History of anemia; Family history of Alzheimer's disease Start: 10-26-2023 End: 10-26-2023 Office outpatient visit 25 minutes Fernando Davison MD Work Phone: [facility] Nephrology 2 Comment on above: Chronic kidney disea se, stage II (mild) (Primary Dx) Start: 10-25-2023 Documentation procedure Jurgen Holden RN [facility] Start: 10-19-2023 End: 10-19-2023 Subsequent hospital visit by physician Naty Bhakta MD Work Phone: Imaging at [facility] Comment on above: Arrived Start: 10-07-2023 End: 10-08-2023 ambulatory EDDI LI Facility:[facility] Start: 09-28-2023 End: 09-28-2023 Office outpatient visit 10 minutes Monse Shipley MD Work Phone: [facility] Infectious Disease Comment on above: Recurrent infections (Primary Dx); Open wound of fourth toe of left foot, sequela; Healthcare maintenance Start: 09-28-2023 End: 09-28-2023 Patient encounter status Monse Shipley MD Work Phone: [facility] Start: 09-26-2023 End: 09-26-2023 Subsequent hospital visit by physician Garry Stephens MD Work Phone: [facility] Procedure Images Comment on above: Arrived Start: 09-26-2023 End: 09-26-2023 Office outpatient visit 15 minutes Garry Stephens MD Work Phone: [facility] Comment on above: 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); Pain of right sacroiliac joint Start: 09-21-2023 End: 09-21-2023 Office outpatient visit 40 minutes Naty Bhakta MD Work Phone: Division of Hematology & Oncology at [facility] Comment on above: LUQ abdominal pain ( Primary Dx); CLL (chronic lymphocytic leukemia) Start: 09-20-2023 End: 09-20-2023 Office outpatient visit 15 minutes Dawn COONM Work Phone: [facility] Comment on above: Skin ulcer of fourth toe of left foot with fat layer exposed (Primary Dx) Start: 09-09-2023 End: 09-09-2023 Patient encounter procedure Tom Srivastava DMD Work Phone: Dentistry Comment on above: PERCY (obstructive sle ep apnea) (Primary Dx) Start: 09-08-2023 End: 09-08-2023 Office outpatient visit 10 minutes Monse Shipley MD Work Phone: [facility] Infectious Disease Comment on above: Recurrent infections (Primary Dx); Open wound of fourth toe of left foot, sequela Start: 08-29-2023 End: 08-29-2023 ambulatory [facility] Work Phone: Start: 08-29-2023 End: 08-29-2023 Patient encounter procedure [facility] Work Phone: Start: 08-28-2023 End: 08-28-2023 ambulatory [facility] Work Phone: Start: 08-28-2023 End: 08-28-2023 Patient encounter procedure [facility] Work Phone: Start: 08-27-2023 End: 08-27-2023 Patient encounter procedure [facility] Work Phone: Start: 08-26-2023 End: 08-26-2023 ambulatory [facility] Work Phone: Start: 08-26-2023 End: 08-26-2023 Patient encounter procedure [facility] Work Phone: Start: 08-25-2023 End: 08-25-2023 ambulatory [facility] Work Phone: Start: 08-25-2023 End: 08-25-2023 Patient encounter procedure [facility] Work Phone: Start: 08-24-2023 ambulatory Elaine Oquendo [employer] Facility: [facility] Start: 08-24-2023 End: 08-24-2023 ambulatory [facility] Work Phone: Start: 08-24-2023 End: 08-24-2023 Patient encounter procedure [facility] Work Phone: Start: 08-23-2023 End: 08-23-2023 Office outpatient visit 15 minutes Dawn Uriarte DPM Work Phone: [facility] Comment on above: Cellulitis and absce ss of toe of left foot (Primary Dx) Start: 08-23-2023 ambulatory Elaine Oquendo [employer] Facility: [facility] Start: 08-23-2023 End: 08-23-2023 ambulatory [facility] Work Phone: Start: 08-23-2023 End: 08-23-2023 Patient encounter procedure [facility] Work Phone: Start: 08-22-2023 ambulatory Elaine Castellanoshenryaram [employer] Facility: [facility] Start: 08-22-2023 End: 08-22-2023 Patient encounter procedure [facility] Work Phone: Start: 08-21-2023 End: 08-21-2023 ambulatory Elaine Castellanoshenryaram [employer] Facility:[facility] Start: 08-21-2023 End: 08-21-2023 ambulatory [facility] Work Phone: Start: 08-21-2023 End: 08-21-2023 Patient encounter procedure [facility] Work Phone: Start: 08-20-2023 End: 08-20-2023 ambulatory Elaine Azularam [employer] Facility:[facility] Start: 08-20-2023 End: 08-20-2023 Patient encounter procedure [facility] Work Phone: Start: 08-19-2023 End: 08-19-2023 ambulatory Elaine Azularam [employer] Facility:[facility] Start: 08-19-2023 End: 08-19-2023 Patient encounter procedure [facility] Work Phone: Start: 08-18-2023 End: 08-18-2023 ambulatory Elaine Azularam [employer] Facility:[facility] Start: 08-18-2023 End: 08-18-2023 ambulatory [facility] Work Phone: Start: 08-18-2023 End: 08-18-2023 Patient encounter procedure [facility] Work Phone: Start: 08-17-2023 End: 08-17-2023 ambulatory Elaine Lianga [employer] Facility:[facility] Start: 08-17-2023 End: 08-17-2023 ambulatory [facility] Work Phone: Start: 08-17-2023 End: 08-17-2023 Patient encounter procedure [facility] Work Phone: Start: 08-16-2023 End: 08-16-2023 ambulatory Monse Shipley Facility:[facility] Start: 08-16-2023 End: 08-16-2023 ambulatory [facility] Work Phone: Start: 08-16-2023 End: 08-16-2023 Patient encounter procedure [facility] Work Phone: Start: 08-15-2023 End: 08-15-2023 Office outpatient visit 15 minutes Monse Shipley MD Work Phone: [facility] Infectious Disease Comment on above: Recurrent infections (Primary Dx); Open wound of fourth toe of left foot, sequela; Healthcare maintenance; Elevated glucose Start: 08-15-2023 End: 08-15-2023 Patient encounter status Monse Shipley MD Work Phone: [facility] Start: 08-15-2023 End: 08-15-2023 ambulatory Elaine Azula [employer] Facility:[facility] Start: 08-15-2023 End: 08-15-2023 ambulatory [facility] Work Phone: Start: 08-15-2023 End: 08-15-2023 Patient encounter procedure [facility] Work Phone: Start: 08-14-2023 End: 08-14-2023 ambulatory Elaine Azula [employer] Facility:[facility] Start: 08-14-2023 End: 08-14-2023 ambulatory [facility] Work Phone: Start: 08-14-2023 End: 08-14-2023 Patient encounter procedure [facility] Work Phone: Start: 08-13-2023 End: 08-13-2023 ambulatory Elaine Oquendo [employer] Facility:[facility] Start: 08-13-2023 End: 08-13-2023 ambulatory [facility] Work Phone: Start: 08-13-2023 End: 08-13-2023 Patient encounter procedure [facility] Work Phone: Start: 08-12-2023 End: 08-12-2023 ambulatory Tom Srivastava DMD Work Phone: Dentistry Comment on above: PERCY (obstructive sle ep apnea) (Primary Dx) Start: 08-12-2023 End: 08-12-2023 Telemedicine consultation with patient Tom Srivastava DMD Work Phone: [facility] Start: 08-12-2023 End: 08-12-2023 ambulatory Elaine Oquendo [employer] Facility:[facility] Start: 08-12-2023 End: 08-12-2023 ambulatory [facility] Work Phone: Start: 08-12-2023 End: 08-12-2023 Patient encounter procedure [facility] Work Phone: Start: 08-11-2023 End: 08-11-2023 Patient encounter procedure Dawn Uriarte DPM Work Phone: [facility] Comment on above: Cellulitis and absce ss of toe of left foot (Primary Dx) Start: 08-11-2023 Encounter for genera l adult medical examination without abnormal findings Monse Shipley [facility] Start: 08-11-2023 End: 08-11-2023 ambulatory Elaine Oquendo [employer] Facility:[facility] Start: 08-11-2023 End: 08-11-2023 ambulatory [facility] Work Phone: Start: 08-11-2023 End: 08-11-2023 Patient encounter procedure [facility] Work Phone: Start: 08-10-2023 End: 08-10-2023 ambulatory Monse Shipley Facility:[facility] Start: 08-10-2023 End: 08-10-2023 ambulatory [facility] Work Phone: Start: 08-10-2023 End: 08-10-2023 Patient encounter procedure [facility] Work Phone: Start: 08-09-2023 End: 08-09-2023 ambulatory Elaine Lianga [employer] Facility:[facility] Start: 08-09-2023 End: 08-09-2023 ambulatory [facility] Work Phone: Start: 08-09-2023 End: 08-09-2023 Patient encounter procedure [facility] Work Phone: Start: 08-08-2023 End: 08-08-2023 Patient encounter procedure Ciro Lyles MD Work Phone: Ophthalmology Comment on above: 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); Ischemic stroke (HCC); Cataract, secondary obscuring vision, bilateral; Pseudophakia, both eyes; Essential hypertension; Mixed hyperlipidemia; PERCY (obstructive sleep apnea) Start: 08-08-2023 End: 08-08-2023 ambulatory Elaine Lianga [employer] Facility:[facility] Start: 08-08-2023 End: 08-08-2023 ambulatory [facility] Work Phone: Start: 08-08-2023 End: 08-08-2023 Patient encounter procedure [facility] Work Phone: Start: 08-07-2023 End: 08-07-2023 ambulatory Elaine Ciesa [employer] Facility:[facility] Start: 08-07-2023 End: 08-07-2023 ambulatory [facility] Work Phone: Start: 08-07-2023 End: 08-07-2023 Patient encounter procedure [facility] Work Phone: Start: 08-06-2023 End: 08-06-2023 ambulatory Elaine Ciesa [employer] Facility:[facility] Start: 08-06-2023 End: 08-06-2023 ambulatory [facility] Work Phone: Start: 08-06-2023 End: 08-06-2023 Patient encounter procedure [facility] Work Phone: Start: 08-05-2023 End: 08-05-2023 Patient encounter procedure Tom Srivastava DMD Work Phone: Dentistry Comment on above: PERCY (obstructive sle ep apnea) (Primary Dx) Start: 08-05-2023 End: 08-05-2023 ambulatory Elaine Jere [employer] Facility:[facility] Start: 08-05-2023 End: 08-05-2023 ambulatory [facility] Work Phone: Start: 08-05-2023 End: 08-05-2023 Patient encounter procedure [facility] Work Phone: Start: 08-04-2023 End: 08-04-2023 ambulatory [facility] Start: 08-04-2023 End: 08-04-2023 Patient encounter procedure Monse Shipley MD Work Phone: [facility] Comment on above: Cellulitis of other specified site (Primary Dx); Open wound of fourth toe of left foot, sequela; Recurrent infections Start: 08-04-2023 End: 08-04-2023 Office outpatient visit 25 minutes Monse Shipley MD Work Phone: [facility] [place] [facility] Comment on above: Cellulitis of other specified site (Primary Dx); Open wound of fourth toe of left foot, sequela; Healthcare maintenance; Recurrent infections Start: 08-04-2023 End: 08-04-2023 Patient encounter status Monse Shipley MD Work Phone: [facility] Start: 08-03-2023 End: 08-03-2023 ambulatory Avg Mayra Gal Infusion Nurse 5 [facility] Start: 08-03-2023 End: 08-03-2023 Patient encounter procedure Monse Shipley MD Work Phone: [facility] Comment on above: Cellulitis of other specified site (Primary Dx) Start: 08-02-2023 End: 08-02-2023 ambulatory [facility] Mayra Gal Infusion Nurse 5 [facility] Start: 08-02-2023 End: 08-02-2023 Patient encounter procedure Monse Shipley MD Work Phone: [facility] Comment on above: Cellulitis of other specified site (Primary Dx) Start: 08-01-2023 End: 08-01-2023 ambulatory [facility] Mayra Gal Infusion Nurse 2 [facility] Start: 08-01-2023 End: 08-01-2023 Patient encounter procedure Monse Shipley MD Work Phone: [facility] Comment on above: Cellulitis of other specified site (Primary Dx) Start: 07-31-2023 End: 07-31-2023 ambulatory Av[facility] Mayra Gal Infusion Nurse 3 [facility] Start: 07-31-2023 End: 07-31-2023 Patient encounter procedure Monse Shipley MD Work Phone: [facility] Comment on above: Cellulitis of other specified site (Primary Dx) Start: 07-30-2023 End: 07-30-2023 ambulatory Avg Mayra Gal Infusion Nurse 3 [facility] Start: 07-30-2023 End: 07-30-2023 Patient encounter procedure Monse Shipley MD Work Phone: [facility] Comment on above: Cellulitis of other specified site (Primary Dx) Start: 07-29-2023 End: 07-29-2023 ambulatory [facility] Mayra Gal Infusion Nurse 1 [facility] Start: 07-29-2023 End: 07-29-2023 Patient encounter procedure Monse Shipley MD Work Phone: [facility] Comment on above: Cellulitis of other specified site (Primary Dx) Start: 07-29-2023 End: 07-29-2023 Office outpatient visit 40 minutes Monse Shipley MD Work Phone: [facility] [place] [facility] Comment on above: Open wound of fourth toe of left foot, sequela (Primary Dx); Cellulitis of other specified site; Healthcare maintenance Start: 07-29-2023 End: 07-29-2023 Patient encounter status Monse Shipley MD Work Phone: [facility] Start: 07-28-2023 End: 07-28-2023 Office outpatient visit 25 minutes Dawn Uriarte DPM Work Phone: [facility] Comment on above: Cellulitis and absce ss of toe of left foot (Primary Dx); Skin ulcer of fourth toe of left foot with fat layer exposed Start: 07-22-2023 End: 07-22-2023 Office outpatient visit 25 minutes Monse Shipley MD Work Phone: [facility] Infectious Disease Comment on above: Cellulitis of other specified site (Primary Dx); Healthcare maintenance; Open wound of fourth toe of left foot, sequela; Recurrent infections Start: 07-22-2023 End: 07-22-2023 Patient encounter status Monse Shipley MD Work Phone: [facility] Start: 07-21-2023 End: 07-21-2023 Patient encounter procedure Dawn Uriarte DPM Work Phone: [facility] Comment on above: Cellulitis and absce ss of toe of left foot (Primary Dx) Start: 07-18-2023 End: 07-18-2023 Office outpatient visit 15 minutes Dawn Uriarte DPM Work Phone: [facility] Comment on above: Cellulitis and absce ss of toe of left foot (Primary Dx) Start: 07-18-2023 End: 07-18-2023 Office outpatient visit 15 minutes Monse Shipley MD Work Phone: [facility] Infect[facility] Disease Comment on above: Cellulitis of other specified site (Primary Dx); Healthcare maintenance; Elevated glucose; Open wound of fourth toe of left foot, sequela Start: 07-18-2023 End: 07-18-2023 Patient encounter status Monse Shipley MD Work Phone: [facility] Start: 07-14-2023 [id number], Provider : Cuca Cervantes, Status: Pen, Time: 10:45 AM Fernie Paredes Work Phone: [facility] Work Phone: Start: 07-13-2023 End: 07-13-2023 Office outpatient visit 15 minutes Monse Shipley MD Work Phone: [facility] Infect[facility] Disease Comment on above: Cellulitis of other specified site (Primary Dx); Elevated glucose; Healthcare maintenance Start: 07-13-2023 End: 07-13-2023 Patient encounter status Monse Shipley MD Work Phone: [facility] Start: 07-12-2023 Patient encounter procedure Fernie Paredes Work Phone: [facility] Work Phone: Start: 07-08-2023 End: 07-08-2023 Subsequent hospital visit by physician Dawn Uriarte [facility] Work Phone: [facility] Periop Comment on above: Abscess of fourth to e of left foot Start: 07-07-2023 [id number], Provider : Laya Gomez, Status: Pen, Time: 10:45 AM Fernie Paredes Work Phone: [facility] [place] Work Phone: Start: 07-07-2023 Patient encounter procedure Fernie Paredes Work Phone: [facility] [place] Work Phone: Start: 07-05-2023 Patient encounter procedure Fernie Paredes Work Phone: [facility] [place] Work Phone: Start: 07-04-2023 End: 07-04-2023 Office outpatient new 45 minutes Monse Shipley MD Work Phone: [facility] Infect[facility] Disease Comment on above: Cellulitis of other specified site (Primary Dx) Start: 07-01-2023 End: 07-01-2023 Patient encounter procedure Tom Srivastava DMD Work Phone: Dentistry Comment on above: PERCY (obstructive sle ep apnea) (Primary Dx) Start: 06-30-2023 [place] [id number], Provider : Laya Gomez, Status: Pen, Time: 11:30 AM Fernie Mcgill Reggie Work Phone: [facility] Work Phone: Start: 06-30-2023 Patient encounter procedure Fernie Paredes Work Phone: [facility] [place] Work Phone: Start: 06-29-2023 End: 06-29-2023 Subsequent hospital visit by physician Dawn Uriarte DPM Work Phone: [facility] Comment on above: Arrived Start: 06-29-2023 End: 06-29-2023 Office outpatient visit 25 minutes Fernie Paredes DO Work Phone: [facility] Comment on above: Type 2 diabetes elmira itus with stage 3a chronic kidney disease, without long-term current use of insulin (Primary Dx); Hyperlipidemia LDL goal <70; Hyponatremia; Idiopathic chronic gout without tophus, unspecified site; B12 deficiency; Hypertriglyceridemia; Folate deficiency; Chronic gastritis without bleeding, unspecified gastritis type; Esophageal stenosis; Hypoproteinemia; Hypomagnesemia; Paroxysmal atrial fibrillation; Essential hypertension; Internal and external hemorrhoids without complication; Bradycardia; Cerebrovascular accident (CVA), unspecified mechanism; Central retinal artery occlusion of left eye; Ischemic stroke; Bilateral carotid artery stenosis-30% Right, 60% Left; Hypertensive heart disease without heart failure; Vitamin D deficiency; Gastroesophageal reflux disease without esophagitis; Fatty liver; Duodenal diverticulum; Hepatomegaly; Esophagitis, Clyo grade A; Pulmonary emphysema, unspecified emphysema type; Chronic obstructive pulmonary disease, unspecified COPD type; PVC's (premature ventricular contractions); PERCY on CPAP-Off BiPAP due to intolerance; Hiatal hernia; Moderate persistent asthma without complication; Non-seasonal allergic rhinitis, unspecified trigger; Chronic sinusitis, unspecified location; Chronic midline low back pain without sciatica; Lacunar infarction; PCO (posterior capsular opacification), left; Primary osteoarthritis of both knees; Spondylosis of lumbar region without myelopathy or radiculopathy; Other idiopathic scoliosis, lumbar region; Spinal stenosis of lumbar region without neurogenic claudication; Primary osteoarthritis of both hips-Mild; HNP (herniated nucleus pulposus), lumbar-Multi level; Anemia, unspecified type; Open wound of fourth toe of left foot, sequela; Spondylosis of cervical region without myelopathy or radiculopathy; Hypermetropia of left eye; Allergic conjunctivitis of both eyes; Combined forms of age-related cataract, bilateral; Regular astigmatism of left eye; Pinguecula of both eyes; Blepharitis of upper eyelids of both eyes, unspecified type; Unspecified amblyopia, right eye; Stage 3a chronic kidney disease; Left renal stone; Mixed stress and urge incontinence; Renal cyst, right; Seborrheic keratosis, inflamed-Left thigh-S/P Excision; [id number] on 09-30-2020; CLL (chronic lymphocytic leukemia); Macrocytosis; Elevated LFTs; Former smoker-Quit 2011; Anxiety and depression; Insomnia, unspecified type; Obesity (BMI 30.0-34.9); Fatty food intolerance; Low HDL (under 40); S/P total knee arthroplasty, right; History of anemia; S/P unilateral salpingo-oophorectomy; Bilateral dry eyes; Irregular astigmatism of right eye; Fatigue, unspecified type; ASCUS of cervix with negative high risk HPV; Myopia of right eye; History of ETOH abuse; Presbyopia; History of cataract extraction, unspecified laterality; Osteopenia determined by x-ray; Vision loss of left eye; Chronic anticoagulation; Pseudophakia of both eyes; Family history of Alzheimer's disease; PAC (premature atrial contraction) Start: 06-28-2023 End: 06-28-2023 Office outpatient visit 25 minutes Dawn Uriarte DPM Work Phone: [facility] Comment on above: Cellulitis and absce ss of toe of left foot (Primary Dx) Start: 06-24-2023 [facility], Provider : Sheyla Dixon, Status: Pen, Time: 2:00 PM Fernie Paredes Work Phone: [facility] Work Phone: Start: 06-24-2023 Patient encounter procedure Fernie Paredes Work Phone: [facility] Work Phone: Start: 06-22-2023 Patient encounter procedure Fernie Paredes Work Phone: [facility] Work Phone: Start: 06-21-2023 End: 06-21-2023 Office outpatient visit 25 minutes Garry Stephens MD Work Phone: [facility] Comment on above: 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); Pain of right sacroiliac joint Start: 06-20-2023 End: 06-20-2023 Subsequent hospital visit by physician Isreal Sigala MD Work Phone: [facility] Comment on above: Arrived Start: 06-14-2023 End: 06-14-2023 Office outpatient visit 25 minutes Dawn COONM Work Phone: [facility] Comment on above: Cellulitis and absce ss of toe of left foot (Primary Dx) Start: 06-14-2023 End: 06-14-2023 Subsequent hospital visit by physician Dawn COONM Work Phone: [facility] Comment on above: Arrived Start: 06-07-2023 End: 06-07-2023 Subsequent hospital visit by physician Isreal Sigala MD Work Phone: [facility] Comment on above: Arrived Start: 05-10-2023 End: 05-10-2023 Postop follow up visit related to original px Dawn Uriarte DPM Work Phone: [facility] Comment on above: Cellulitis and absce ss of toe of left foot (Primary Dx) Start: 05-05-2023 End: 05-05-2023 Office outpatient new 45 minutes Dawn Uriarte DPM Work Phone: [facility] Comment on above: Cellulitis and absce ss of toe of left foot (Primary Dx) Start: 05-02-2023 End: 05-02-2023 Subsequent hospital visit by physician Rosalee ELIZONDO Work Phone: [facility] Comment on above: Arrived Start: 05-02-2023 End: 05-02-2023 Office outpatient visit 15 minutes Rosalee ELIZONDO Work Phone: [facility] Comment on above: Cellulitis of fourth toe of left foot (Primary Dx) Start: 04-29-2023 End: 04-29-2023 Office outpatient visit 40 minutes Gonsalo Blackwood MD Work Phone: [facility] Comment on above: Toe infection Start: 04-27-2023 End: 04-27-2023 Office outpatient visit 25 minutes Fernando Davison MD Work Phone: [facility] Nephrology 2 Comment on above: Stage 3a chronic kid marcie disease (Primary Dx) Start: 04-21-2023 End: 04-21-2023 Office outpatient visit 15 minutes Shae Whittington LINTER OPERATOR-RESIDENTIAL CARE OFFICER Work Phone: [facility] Comment on above: Toe infection (Prima ry Dx) Start: 04-21-2023 End: 04-21-2023 Admission to establishment Gonsalo Blackwood MD Work Phone: [facility] Pre Admission Comment on above: Preop testing (Prima ry Dx); Abnormal finding of blood chemistry, unspecified; Abnormal coagulation profile; Stage 3a chronic kidney disease Start: 04-21-2023 End: 04-21-2023 Patient encounter status Gonsalo Blackwood MD Work Phone: [facility] Start: 04-07-2023 End: 04-07-2023 Patient encounter procedure Tom Srivastava DMD Work Phone: Dentistry Comment on above: PERCY (obstructive sle ep apnea) (Primary Dx) Start: 03-01-2023 End: 03-01-2023 Subsequent hospital visit by physician Fernie Paredes DO Work Phone: [facility] D[facility] Comment on above: Arrived Start: 02-14-2023 End: 02-14-2023 Office outpatient visit 25 minutes Ferneialeksandar Paredes DO Work Phone: [facility] Comment on above: Type 2 diabetes elmira itus with stage 3a chronic kidney disease, without long-term current use of insulin (Primary Dx); Stage 3a chronic kidney disease; Hyperlipidemia LDL goal <70; Idiopathic chronic gout without tophus, unspecified site; Hypertriglyceridemia; B12 deficiency; Chronic gastritis without bleeding, unspecified gastritis type; Hyponatremia; Folate deficiency; Hepatomegaly; Gastroesophageal reflux disease without esophagitis; Vitamin D deficiency; Fatty liver; Bilateral carotid artery stenosis-30% Right, 60% Left; Paroxysmal atrial fibrillation; Bradycardia; Essential hypertension; Internal and external hemorrhoids without complication; PVC's (premature ventricular contractions); Chronic obstructive pulmonary disease, unspecified COPD type; Pulmonary emphysema, unspecified emphysema type; PERCY on CPAP-Off BiPAP due to intolerance; Chronic sinusitis, unspecified location; Non-seasonal allergic rhinitis, unspecified trigger; Moderate persistent asthma without complication; Hiatal hernia; Cerebrovascular accident (CVA), unspecified mechanism; Central retinal artery occlusion of left eye; Ischemic stroke; Hypertensive heart disease without heart failure; Duodenal diverticulum; Esophagitis, Clyo grade A; Esophageal stenosis; Combined forms of age-related cataract, bilateral; Allergic conjunctivitis of both eyes; Chronic midline low back pain without sciatica; Lacunar infarction; Hypermetropia of left eye; Unspecified amblyopia, right eye; Primary osteoarthritis of both knees; Spondylosis of lumbar region without myelopathy or radiculopathy; Other idiopathic scoliosis, lumbar region; Spinal stenosis of lumbar region without neurogenic claudication; Primary osteoarthritis of both hips-Mild; Blepharitis of upper eyelids of both eyes, unspecified type; Pinguecula of both eyes; Regular astigmatism of left eye; Anemia, unspecified type; HNP (herniated nucleus pulposus), lumbar-Multi level; Spondylosis of cervical region without myelopathy or radiculopathy; Renal cyst, right; Mixed stress and urge incontinence; Seborrheic keratosis, inflamed-Left thigh-S/P Excision; CLL (chronic lymphocytic leukemia); [id number] on 09-30-2020; Macrocytosis; Elevated LFTs; Anxiety and depression; Former smoker-Quit 2011; Insomnia, unspecified type; Obesity (BMI 30.0-34.9); Fatty food intolerance; Bilateral dry eyes; Irregular astigmatism of right eye; Fatigue, unspecified type; Urinary frequency; ASCUS of cervix with negative high risk HPV; History of ETOH abuse; Osteopenia determined by x-ray; Vision loss of left eye; Chronic anticoagulation; Family history of Alzheimer's disease; Pseudophakia; History of cataract extraction, unspecified laterality; Myopia of right eye; Presbyopia; Low HDL (under 40); Asymptomatic postmenopausal state Start: 02-05-2023 End: 02-05-2023 Emergency department patient visit FERNIE PAREDES [facility] Start: 02-04-2023 End: 02-04-2023 Patient encounter procedure Ciro Lyles MD Work Phone: Ophthalmology Comment on above: Central retinal vishnu ry occlusion, left eye (Primary Dx); Ischemic stroke (HCC); Essential hypertension; Hypercholesteremia; Paroxysmal atrial fibrillation (HCC) Start: 01-07-2023 End: 01-07-2023 Subsequent hospital visit by physician 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 APRN-RESIDENTIAL CARE OFFICER Work Phone: [facility] Mammography Comment on above: Arrived Start: 12-16-2022 End: 12-16-2022 Subsequent hospital visit by physician Isreal Sigala MD Work Phone: [facility] Periop Comment on above: Other spondylosis wi th radiculopathy, lumbar region Start: 12-13-2022 Telephone encounter Shi Morel APRN.RESIDENTIAL CARE OFFICER Work Phone: [place] [facility] Comment on above: Results ([employer]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 ) Start: 12-06-2022 Telephone encounter Dawn Frost DO Work Phone: Cardiology Comment on above: Forms Start: 11-24-2022 End: 11-24-2022 Patient encounter procedure Eddi Randhawa MD Work Phone: Otolaryngology Comment on above: PERCY (obstructive sle ep apnea) (Primary Dx) Start: 11-22-2022 End: 11-22-2022 Office outpatient visit 25 minutes Fernie Paredes DO Work Phone: [facility] Comment on above: Type 2 diabetes elmira itus with stage 2 chronic kidney disease, without long-term current use of insulin (Primary Dx); Hyperlipidemia LDL goal <70; Hypertriglyceridemia; Idiopathic chronic gout without tophus, unspecified site; B12 deficiency; Chronic gastritis without bleeding, unspecified gastritis type; Folate deficiency; Fatty liver; Anemia, unspecified type; Gastroesophageal reflux disease without esophagitis; Hepatomegaly; Vitamin D deficiency; Duodenal diverticulum; Esophagitis, Clyo grade A; Esophageal stenosis; Paroxysmal atrial fibrillation; Chronic midline low back pain without sciatica; Spinal stenosis of lumbar region without neurogenic claudication; Spondylosis of cervical region without myelopathy or radiculopathy; Spondylosis of lumbar region without myelopathy or radiculopathy; Combined forms of age-related cataract, bilateral; Hypermetropia of left eye; Unspecified amblyopia, right eye; Regular astigmatism of left eye; Pinguecula of both eyes; Blepharitis of upper eyelids of both eyes, unspecified type; Allergic conjunctivitis of both eyes; Other idiopathic scoliosis, lumbar region; Primary osteoarthritis of both hips-Mild; Primary osteoarthritis of both knees; Bilateral carotid artery stenosis-30% Right, 60% Left; Central retinal artery occlusion of left eye; Bradycardia; Cerebrovascular accident (CVA), unspecified mechanism; Essential hypertension; Ischemic stroke; Internal and external hemorrhoids without complication; PVC's (premature ventricular contractions); Chronic obstructive pulmonary disease, unspecified COPD type; Chronic sinusitis, unspecified location; Moderate persistent asthma without complication; Non-seasonal allergic rhinitis, unspecified trigger; PERCY on CPAP-No on BiPAP due to intolerance; Pulmonary emphysema, unspecified emphysema type; Hiatal hernia; HNP (herniated nucleus pulposus), lumbar-Multi level; Renal cyst, right; Mixed stress and urge incontinence; CKD (chronic kidney disease) stage 2, GFR 60-89 ml/min; Macrocytosis; Seborrheic keratosis, inflamed-Left thigh-S/P Excision; [id number] on 09-30-2020; Anxiety and depression; Hyponatremia; Vision loss of left eye; Urinary frequency; Pseudophakia; Presbyopia; Osteopenia determined by x-ray; Obesity (BMI 30.0-34.9); S/P total knee arthroplasty, right; S/P unilateral salpingo-oophorectomy; Insomnia, unspecified type; Irregular astigmatism of right eye; Low HDL (under 40); Myopia of right eye; Fatty food intolerance; Fatigue, unspecified type; History of anemia; History of ETOH abuse; History of cataract extraction, unspecified laterality; Former smoker-Quit 2011; Family history of Alzheimer's disease; Elevated LFTs; Bilateral dry eyes; ASCUS of cervix with negative high risk HPV Start: 11-19-2022 Telephone encounter Laya Barillas APRN.RESIDENTIAL CARE OFFICER Work Phone: Cardiology Comment on above: Patient Question Start: 11-17-2022 Telephone encounter Thomas Cervantes RN NOC Comment on above: Follow Up (Gyant int eraction - F/U - attempt made. No answer ) Start: 11-17-2022 End: 11-17-2022 Subsequent hospital visit by physician Gonsalo Blackwood MD Work Phone: [facility] Start: 11-17-2022 End: 11-17-2022 Office outpatient new 60 minutes Gonsalo Blackwood MD Work Phone: [facility] Comment on above: Primary osteoarthrit is of left knee (Primary Dx) Start: 11-17-2022 End: 11-17-2022 Office outpatient visit 25 minutes Laya Barillas APRN.RESIDENTIAL CARE OFFICER Work Phone: Cardiology Comment on above: PAF (paroxysmal atri al fibrillation) (HCC) (Primary Dx); Ischemic stroke (HCC); Essential hypertension; PERCY (obstructive sleep apnea); PVC (premature ventricular contraction) Start: 11-11-2022 Telephone encounter Card Nurse [facility] Card[facility] Comment on above: Patient Question Start: 11-10-2022 Telephone encounter Eddi Randhawa MD Work Phone: Otolaryngology Comment on above: Results Start: 11-09-2022 End: 11-12-2022 Evaluation and management of inpatient MANOHAR RAO Facility:[facility] Start: 11-05-2022 End: 11-05-2022 Patient encounter procedure Ciro Lyles MD Work Phone: Ophthalmology Comment on above: Central retinal vishnu ry occlusion, left eye (Primary Dx); Ischemic stroke (HCC); Essential hypertension; Hypercholesteremia; Paroxysmal atrial fibrillation (HCC) Start: 10-30-2022 End: 11-02-2022 ambulatory FERNIE PAREDES Facility:[facility] Start: 10-30-2022 End: 10-30-2022 Emergency department patient visit Larry BecerrilAlix Arcadio [facility] Emergency 13 Start: 10-30-2022 End: 10-30-2022 Patient encounter procedure Ciro Lyles MD Work Phone: Ophthalmology Comment on above: Central retinal vishnu ry occlusion, left eye (Primary Dx); Sudden loss of vision, left; Headache, temporal; After-cataract with vision obscured of both eyes; Follicular lymphoma, unspecified follicular lymphoma type, unspecified body region (HCC); Essential hypertension; Mixed hyperlipidemia; Paroxysmal atrial fibrillation (HCC) Start: 10-12-2022 End: 10-12-2022 Subsequent hospital visit by physician Isreal Sigala MD Work Phone: [facility] Comment on above: Arrived Start: 09-29-2022 End: 09-29-2022 Clinical Support Encounter Naty Bhakta MD Work Phone: Division of Hematology & Oncology Comment on above: CLL (chronic lymphoc ytic leukemia) (Primary Dx) Start: 09-29-2022 [facility] Work Phone: Neurology Start: 09-29-2022 End: 09-29-2022 Office outpatient visit 25 minutes Naty Bhakta MD Work Phone: Division of Hematology & Oncology Comment on above: CLL (chronic lymphoc ytic leukemia) Start: 09-29-2022 End: 09-29-2022 Office outpatient visit 15 minutes Dariusz Rangel MD Work Phone: [facility] Comment on above: Postoperative examin ation (Primary Dx) Start: 09-28-2022 End: 09-28-2022 Patient encounter procedure Eddi Randhawa MD Work Phone: Otolaryngology Comment on above: PERCY (obstructive sle ep apnea) (Primary Dx) Start: 09-20-[address] Isreal Sigala Facility:[id number] Start: 09-20-2022 Patient encounter procedure Fernie Paredes Work Phone: [facility] Work Phone: Start: 08-30-2022 Patient encounter procedure Fernie Paredes Work Phone: [facility] Work Phone: Start: 08-30-[address] Isreal Sigala Facility:[id number] Start: 08-27-[address] Fernie Paredes Facility:[id number] Start: 08-27-2022 Patient encounter procedure Fernie Paredes Work Phone: [facility] Work Phone: Start: 08-20-2022 End: 08-20-2022 Office outpatient visit 25 minutes Fernie Paredes DO Work Phone: [facility] Comment on above: Type 2 diabetes elmira itus with stage 2 chronic kidney disease, without long-term current use of insulin (Primary Dx); Hyperlipidemia LDL goal <70; Hypertriglyceridemia; Idiopathic chronic gout without tophus, unspecified site; B12 deficiency; Fatty liver; Chronic gastritis without bleeding, unspecified gastritis type; Folate deficiency; Gastroesophageal reflux disease without esophagitis; Duodenal diverticulum; Esophageal stenosis; Esophagitis, Clyo grade A; Anemia, unspecified type; Hepatomegaly; Unspecified amblyopia, right eye; Regular astigmatism of left eye; Vitamin D deficiency; Paroxysmal atrial fibrillation; Essential hypertension; Internal and external hemorrhoids without complication; PVC's (premature ventricular contractions); Chronic obstructive pulmonary disease, unspecified COPD type; Chronic sinusitis, unspecified location; Moderate persistent asthma without complication; Non-seasonal allergic rhinitis, unspecified trigger; PERCY on CPAP-BiPAP Set at 14/4 CM/H2O; Pulmonary emphysema, unspecified emphysema type; Spondylosis of cervical region without myelopathy or radiculopathy; Spinal stenosis of lumbar region without neurogenic claudication; Spondylosis of lumbar region without myelopathy or radiculopathy; Allergic conjunctivitis of both eyes; Chronic midline low back pain without sciatica; Hypermetropia of left eye; Pinguecula of both eyes; Combined forms of age-related cataract, bilateral; Blepharitis of upper eyelids of both eyes, unspecified type; Hiatal hernia; HNP (herniated nucleus pulposus), lumbar-Multi level; Other idiopathic scoliosis, lumbar region; Primary osteoarthritis of both hips-Mild; Primary osteoarthritis of both knees; CKD (chronic kidney disease) stage 2, GFR 60-89 ml/min; Mixed stress and urge incontinence; Renal cyst, right; [id number] on 09-30-2020; Seborrheic keratosis, inflamed-Left thigh-S/P Excision; CLL (chronic lymphocytic leukemia); Macrocytosis; Anxiety and depression; Pseudophakia; Urinary frequency; Osteopenia determined by x-ray; Bradycardia; Obesity (BMI 30.0-34.9); Myopia of right eye; Low HDL (under 40); Irregular astigmatism of right eye; Insomnia, unspecified type; History of ETOH abuse; History of cataract extraction, unspecified laterality; History of anemia; S/P unilateral salpingo-oophorectomy; S/P total knee arthroplasty, right; Presbyopia; Elevated LFTs; Fatty food intolerance; Fatigue, unspecified type; Former smoker-Quit 2011; Bilateral dry eyes; ASCUS of cervix with negative high risk HPV; Family history of Alzheimer's disease Start: 08-20-[address] Fernie Paredes Facility:[id number] Start: 08-20-2022 Patient encounter procedure [facility]: Start: 08-17-[address] Fernie Paredes Facility:[id number] Start: 08-17-2022 Patient encounter procedure [facility] Paredes [facility] Work [facility]: Start: 08-13-2022 [place] [id number], Provider : Silvia Mcneill, Status: Pen, Time: 10:00 AM Fernie Paredes [facility] Work [facility]: Start: 08-11-2022 Patient encounter procedure Fernie Paredes Work Phone: [facility] Work Phone: Start: 08-11-[address] Isreal Sigala Facility:[id number] Start: 08-09-2022 End: 08-09-2022 Office outpatient visit 15 minutes [facility] Work Phone: [facility] Comment on above: Mixed stress and urg e urinary incontinence (Primary Dx); Midline cystocele; Urethral hypermobility; Pelvic pain; History of atrial fibrillation Start: 08-05-2022 [place] [id number], Provider : Laya Gomez, Status: Pen, Time: 12:15 PM Fernie Paredes [facility] Work Phone: Start: 08-05-2022 Patient encounter procedure Fernie Paredes Work Phone: [facility] Work Phone: Start: 08-05-[address] Isreal Sigala Facility:[id number] Start: 08-03-[address] Isreal Sigala Facility:[id number] Start: 08-03-2022 Patient encounter procedure Fernie Paredes Work Phone: [facility] Work Phone: Start: 07-29-2022 Patient encounter procedure Fernie Paredes Work Phone: [facility] Work Phone: Start: 07-22-2022 Patient encounter procedure Fernie Paredes Work Phone: [facility] Work Phone: Start: 07-22-[address] Isreal Sigala Facility:[id number] Start: 07-08-2022 End: 07-08-2022 Office outpatient visit 25 minutes Dariusz Rangel MD Work Phone: [facility] Comment on above: Mixed stress and urg e urinary incontinence (Primary Dx); Midline cystocele; Urethral hypermobility; Pelvic pain; History of atrial fibrillation Start: 06-17-2022 End: 06-17-2022 Subsequent hospital visit by physician Isreal Sigala MD Work Phone: [facility] Comment on above: Sacroiliitis Start: 06-07-2022 End: 06-07-2022 Office outpatient visit 25 minutes Dariusz Rangel MD Work Phone: [facility] Comment on above: Dysuria (Primary Dx) ; Detrusor instability of bladder; Urinary frequency; Urethral hypermobility; Functional urinary incontinence Start: 06-01-2022 End: 06-01-2022 Patient encounter procedure Dariusz Rangel MD Work Phone: [facility] Comment on above: Urinary incontinence , unspecified type (Primary Dx); Dysuria Start: 05-26-2022 End: 05-26-2022 Office outpatient visit 25 minutes Fernie Paredes DO Work Phone: [facility] Comment on above: Type 2 diabetes elmira itus with stage 2 chronic kidney disease, without long-term current use of insulin (Primary Dx); Hyperlipidemia LDL goal <70; Hypertriglyceridemia; Idiopathic chronic gout without tophus, unspecified site; B12 deficiency; Fatty liver; Folate deficiency; Gastroesophageal reflux disease without esophagitis; Hepatomegaly; PERCY on CPAP-BiPAP Set at 14/4 CM/H2O; Vitamin D deficiency; Chronic midline low back pain without sciatica; Essential hypertension; Paroxysmal atrial fibrillation; CLL (chronic lymphocytic leukemia); PVC's (premature ventricular contractions); Internal and external hemorrhoids without complication; Anemia, unspecified type; CKD (chronic kidney disease) stage 2, GFR 60-89 ml/min; Chronic obstructive pulmonary disease, unspecified COPD type; Non-seasonal allergic rhinitis, unspecified trigger; Moderate persistent asthma without complication; Chronic sinusitis, unspecified location; Esophagitis, Clyo grade A; Esophageal stenosis; Duodenal diverticulum; Chronic gastritis without bleeding, unspecified gastritis type; Combined forms of age-related cataract, bilateral; Unspecified amblyopia, right eye; Regular astigmatism of left eye; Pseudophakia; Hypermetropia of left eye; Pinguecula of both eyes; Spondylosis of lumbar region without myelopathy or radiculopathy; Spinal stenosis of lumbar region without neurogenic claudication; Primary osteoarthritis of both knees; Primary osteoarthritis of both hips-Mild; Other idiopathic scoliosis, lumbar region; HNP (herniated nucleus pulposus), lumbar-Multi level; Hiatal hernia; Renal cyst, right; Mixed stress and urge incontinence; Seborrheic keratosis, inflamed-Left thigh-S/P Excision; Macrocytosis; Anxiety and depression; Urinary frequency; Presbyopia; Osteopenia determined by x-ray; Obesity (BMI 30.0-34.9); S/P total knee arthroplasty, right; S/P unilateral salpingo-oophorectomy; Low HDL (under 40); Myopia of right eye; Irregular astigmatism of right eye; Insomnia, unspecified type; History of ETOH abuse; History of cataract extraction, unspecified laterality; Fatty food intolerance; Fatigue, unspecified type; Elevated LFTs; Bilateral dry eyes; ASCUS of cervix with negative high risk HPV; Spondylosis of cervical region without myelopathy or radiculopathy; Pulmonary emphysema, unspecified emphysema type Start: 05-03-2022 End: 11-01-2024 Patient encounter status Fernie Paredes DO Work Phone: [facility] Start: 04-16-2022 End: 04-16-2022 Office outpatient visit 25 minutes Jonathan Cm RESIDENTIAL CARE OFFICER Work Phone: [facility]rology Comment on above: Urinary tract infect ion without hematuria, site unspecified (Primary Dx); Urge incontinence; Voiding dysfunction Start: 03-31-2022 End: 04-01-2022 Emergency department patient visit ASAD SEYMOUR [facility] Start: 03-23-2022 End: 03-23-2022 Office outpatient visit 25 minutes Fernie Paredes DO Work Phone: [facility] Comment on above: Controlled type 2 di abetes mellitus with chronic kidney disease, without long-term current use of insulin, unspecified CKD stage (Primary Dx); Hyperlipidemia LDL goal <70; Idiopathic chronic gout without tophus, unspecified site; B12 deficiency; Chronic gastritis without bleeding, unspecified gastritis type; Folate deficiency; Gastroesophageal reflux disease without esophagitis; Acute cystitis without hematuria; PERCY on CPAP-BiPAP Set at 14/4 CM/H2O; Moderate persistent asthma without complication; Chronic obstructive pulmonary disease, unspecified COPD type; PVC's (premature ventricular contractions); Anemia, unspecified type; Non-seasonal allergic rhinitis, unspecified trigger; Paroxysmal atrial fibrillation; Internal and external hemorrhoids without complication; Essential hypertension; Vitamin D deficiency; Hepatomegaly; Fatty liver; Duodenal diverticulum; Esophagitis, Clyo grade A; Esophageal stenosis; Hypertriglyceridemia; Chronic midline low back pain without sciatica; Allergic conjunctivitis of both eyes; Blepharitis of upper eyelids of both eyes, unspecified type; Combined forms of age-related cataract, bilateral; Hypermetropia of left eye; Pinguecula of both eyes; Pseudophakia; Unspecified amblyopia, right eye; Regular astigmatism of left eye; Spondylosis of lumbar region without myelopathy or radiculopathy; Spinal stenosis of lumbar region without neurogenic claudication; Primary osteoarthritis of both knees; Primary osteoarthritis of both hips-Mild; Hiatal hernia; Other idiopathic scoliosis, lumbar region; CKD (chronic kidney disease) stage 2, GFR 60-89 ml/min; Mixed stress and urge incontinence; Renal cyst, right; [id number] on 09-30-2020; CLL (chronic lymphocytic leukemia); Macrocytosis; Urinary frequency; Anxiety and depression; S/P total knee arthroplasty, right; S/P unilateral salpingo-oophorectomy; Presbyopia; Osteopenia determined by x-ray; Obesity (BMI 30.0-34.9); Myopia of right eye; Low HDL (under 40); Irregular astigmatism of right eye; Insomnia, unspecified type; History of ETOH abuse; Former smoker-Quit 2011; Fatty food intolerance; Fatigue, unspecified type; Elevated LFTs; Bilateral dry eyes; ASCUS of cervix with negative high risk HPV; HNP (herniated nucleus pulposus), lumbar Start: 03-02-2022 End: 03-02-2022 Subsequent hospital visit by physician Garry Stephens MD Work Phone: [facility] Procedure Images Comment on above: Arrived Start: 02-04-2022 End: 02-04-2022 Office outpatient visit 15 minutes Garry Stephens MD Work Phone: [facility] Comment on above: Osteoarthritis of le ft sacroiliac joint (Primary Dx); Pain of left sacroiliac joint; Lumbar spondylosis Start: 01-27-2022 End: 01-27-2022 Office outpatient new 45 minutes Washington Garner MD Work Phone: [facility] Urology Comment on above: Urge incontinence (P rimary Dx) Start: 02-13-2021 End: 02-13-2021 Emergency department patient visit Asad Pritchetts DO Work Phone: [facility] Emergency Department Start: 05-12-2018 Patient encounter status Washington Garner MD Work Phone: [facility] Start: 04-16-2018 End: 04-16-2018 Annotation/Addendum Elaine Haque 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 Start: 06-10-2017 End: 06-10-2017 Phone Encounter Elaine Haque 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 Start: 06-10-2017 End: 06-10-2017 Periodic preventive med est patient 40-64yrs Elaine Haque Internal Medicine Start: 02-15-2017 End: 02-15-2017 Patient encounter procedure Elaine Haque [facility] Start: 02-04-2017 End: 02-04-2017 Office outpatient visit 25 minutes Elaine Haque [facility] Start: 11-09-2016 End: 11-09-2016 Patient encounter procedure Elaine Haque [facility] Start: 05-26-2016 End: 05-26-2016 Phone Encounter Elaine Haque 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 Start: 05-05-2016 End: 05-05-2016 Refill Request Elaine Haque 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 Start: 04-12-2016 End: 04-12-2016 Patient encounter procedure Elaine Haque [facility] Start: 02-11-2016 End: 02-11-2016 Phone Encounter Elaine Haque 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 Start: 12-04-2015 End: 12-04-2015 Office outpatient visit 10 minutes Elaine Haque [facility] Medicine Start: 12-04-2015 End: 12-04-2015 Office outpatient new 30 minutes Elaine Haque [facility] Start: 10-23-2015 End: 10-23-2015 Historical Summary Elaine Haque 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 Start: 09-15-2015 End: 09-15-2015 Historical Summary Elaine Haque 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 Start: 07-23-2015 End: 07-23-2015 Office outpatient visit 25 minutes Elaine Haque [facility] Start: 02-14-2015 End: 02-14-2015 Office outpatient visit 15 minutes Elaine Haque [facility] Start: 10-22-2014 End: 10-22-2014 Office outpatient visit 40 minutes Elaine Haque [facility] Start: 04-29-2014 End: 04-29-2014 Patient encounter procedure Elaine Haque [facility] Start: 09-28-2013 End: 09-28-2013 Patient encounter procedure Elaine Haque [facility] Start: 09-03-2013 End: 09-03-2013 Patient encounter procedure Elaine Haque [facility] Start: 04-17-2013 End: 04-17-2013 Office outpatient visit 40 minutes Elaine Haque [facility] Start: 03-01-2013 End: 03-04-2013 Patient encounter procedure Elaine Haque [facility] Start: 02-23-2013 End: 02-23-2013 Patient encounter procedure Elaine Haque [facility] Start: 11-27-2012 End: 11-27-2012 Office outpatient visit 15 minutes Elaine Haque [facility] Start: 10-12-2012 End: 10-12-2012 Patient encounter procedure Elaine Haque [facility] Start: 10-05-2012 End: 10-05-2012 Phone Encounter Elaine Haque 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 Start: 09-08-2012 End: 09-08-2012 Patient encounter procedure Elaine Haque [facility] Start: 12-10-2011 End: 12-10-2011 Phone Encounter Elaine Jere Haque 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 Start: 12-03-2011 End: 12-03-2011 Patient encounter procedure Elaine Haque [facility] Start: 11-29-2011 End: 11-29-2011 Phone Encounter Elaine Haque 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 Start: 11-19-2011 End: 11-19-2011 Phone Encounter Elaine Haque 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 Start: 11-19-2011 End: 11-19-2011 Patient encounter procedure Elaine Haque Internal [facility] Start: 11-18-2011 End: 11-18-2011 Phone Encounter Elaine Haque 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 Start: 11-17-2011 End: 11-17-2011 Phone Encounter Elaine Oquendo [facility] 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 Start: 10-21-2011 End: 10-21-2011 Patient encounter procedure Elaine Oquendo [facility] Start: 10-19-2011 End: 10-19-2011 Patient encounter procedure Elaine Oquendo [facility] Start: 09-03-2010 End: 09-03-2010 Patient encounter procedure Elaine Oquendo [facility] Start: 06-18-2010 End: 06-18-2010 Patient encounter procedure Elaine Oquendo [facility] Start: 05-25-2010 End: 05-25-2010 Patient encounter procedure Elaine Oquendo [facility] Start: 08-22-2008 End: 08-22-2008 Patient encounter procedure Elaine Oquendo [facility] Start: 03-01-2008 End: 03-01-2008 Office outpatient visit 15 minutes Elaine Oquendo [facility] Start: 01-26-2008 End: 01-26-2008 Patient encounter procedure Elaine Oquendo [facility] Start: 12-26-2007 End: 12-26-2007 Phone Encounter Elaine Oquendo [facility] 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 Start: 12-26-2007 End: 12-26-2007 Patient encounter procedure Elaine Oquendo [facility] Start: 10-11-2007 End: 10-11-2007 Office outpatient visit 15 minutes Elaine Oquendo [facility] Start: 05-10-2007 End: 05-11-2007 Patient encounter procedure Elaine Oquendo [facility] Start: 03-08-2007 End: 03-08-2007 Nursing evaluation of patient and report Elaine Oquendo [facility] Start: 02-08-2007 End: 02-10-2007 Patient encounter procedure Elaine Oquendo [facility] Start: 12-29-2006 End: 12-29-2006 Office outpatient visit 15 minutes Elaine Oquendo [facility] Start: 11-30-2006 End: 11-30-2006 [facility] Date Procedure Procedure Detail Performing Clinician Start: 06-27-2025 Injection 1 tendon sheath/ligament aponeurosis Dawn Uriarte DPM Work Phone: Start: 06-20-2025 History of cataract extraction S/P cataract extraction and insertion of intraocular lens, unspecified laterality Fernie Paredes DO Work Phone: Start: 05-30-2025 Injection 1 tendon sheath/ligament aponeurosis Dawn Downey Blaynemanuel DPM Work Phone: Start: 05-15-2025 Fundus photography w/interpretation & report Ciro Lyles MD Work Phone: Start: 05-15-2025 Post-cataract laser surgery Ciro Lyles MD Work Phone: Start: 05-10-2025 Radex foot complete minimum 3 views Monse Shipley MD Work Phone: Start: 05-06-2025 Radex spine lumbscrl compl w/bending views min 6 Isreal Sigala MD Work Phone: Start: 04-05-2025 PULSE OXIMETRY, CONTINUOUS Liang Simmons DO Work Phone: Start: 04-05-2025 Assay of troponin quantitative Liang Simmons DO Work Phone: Start: 04-05-2025 Ethanol [Mass/volume ] in Serum or Plasma Geronimo Trotter Harper DO Work Phone: Start: 04-04-2025 Drug tst prsmv instr mnt chem analyzers pr date Geronimo Trotter Harper DO Work Phone: Start: 04-04-2025 Acetaminophen [Mass/volume] in Serum or Plasma Geronimo Trotter Harper DO Work Phone: Start: 04-04-2025 Comprehensive metabo lic panel Geronimo Trotter Harper DO Work Phone: Start: 04-04-2025 Ethanol [Mass/volume ] in Serum or Plasma Geronimo Trotter Harper DO Work Phone: Start: 04-04-2025 Salicylates [Mass/volume] in Serum or Plasma Geronimo Trotter Harper DO Work Phone: Start: 03-06-2025 Dxa bone density doug dy 1/> sites axial skel Fernie Pareeds DO Work Phone: Start: 03-06-2025 Mammography Fernie hu DO Work Phone: Start: 01-08-2025 Duplex scan extracranial art compl bi study Fernie Paredes DO Work Phone: Start: 12-31-2024 Lipid 1996 panel - Serum or Plasma Ciro Lyles MD Work Phone: Start: 12-26-2024 Follow-up visit Follow-up EMILY Mcgill HUY Start: 12-05-2024 Dup-scan xtr veins unilateral/limited study Shi Mcgill Huy Work Phone: Start: 11-29-2024 Radiologic exam swal low function contrast study Delilah Ellis DO Work Phone: Start: 11-14-2024 History of operative procedure on knee History of left knee replacement Geronimo Harper DO Work Phone: Start: 11-13-2024 Basic metabolic pane l calcium total Washington Maxwell MD Work Phone: Start: 11-13-2024 Complete blood count with white cell differential, automated Sonido Castaneda LINTER OPERATOR-RESIDENTIAL CARE OFFICER Work Phone: Start: 11-12-2024 Radiologic examinati on knee 1/2 views Sonido Castaneda LINTER OPERATOR-RESIDENTIAL CARE OFFICER Work Phone: Start: 11-12-2024 End: 11-12-2024 Arthrp kne condyle&platu medial&lat compartments Gonsalo Blackwood MD Work Phone: Start: 10-29-2024 Ecg routine ecg w/le ast 12 lds w/i&r Brian Brush CNP Work Phone: Start: 10-29-2024 DIAGNOSTIC UPPER ENDOSCOPY Delilah Ellis DO Work Phone: Start: 10-02-2024 End: 10-02-2024 Fundus photography w/interpretation & report Ciro Lyles MD Work Phone: Start: 09-19-2024 CBC AND ELECTRONIC DIFF Kymberly Echols LINTER OPERATOR-RESIDENTIAL CARE OFFICER Work Phone: Start: 09-19-2024 Complete blood count with white cell differential, automated Kymberly Echols LINTER OPERATOR-[facility] Work Phone: Start: 09-19-2024 Comprehensive metabo lic panel Kymberly Echols LINTER OPERATOR-[facility] Work Phone: Start: 07-09-2024 Lipid 1996 panel - Serum or Plasma Ciro Lyles MD Work Phone: Start: 05-22-2024 Ecg routine ecg w/le ast 12 lds w/i&r Brianeugenia Brush [facility] Work Phone: Start: 01-23-2024 [facility] Isreal sesay MD Work Phone: Start: 01-19-2024 Lipid 1996 panel - Serum or Plasma Ciro Lyles MD Work Phone: Start: 01-19-2024 Microalbumin [Mass/volume] in Urine by Test strip Brianeugenia Brush [facility] Work Phone: Start: 01-10-2024 US Unspecified body region Garry Stephens MD Work Phone: Start: 01-10-2024 Arthrocentesis aspir&/inj major jt/bursa w/us Garry Stephens MD Work Phone: Start: 01-06-2024 Ecg routine ecg w/le ast 12 lds w/i&r Aguilar Alexandra [facility] Work Phone: Start: 11-08-2023 Ecg routine ecg w/le ast 12 lds w/i&r Kandice Christie MD Work Phone: Start: 10-19-2023 Ct abdomen & pelvis w/contrast material Sean Khan MD, PhD Work Phone: Start: 09-26-2023 US Unspecified body region Garry Stephens MD Work Phone: Start: 09-26-2023 Arthrocentesis aspir&/inj major jt/bursa w/us Garry Stephens MD Work Phone: Start: 09-21-2023 CBC AND ELECTRONIC DIFF Kymberly Echols LINTER OPERATOR-RESIDENTIAL CARE OFFICER Work Phone: Start: 09-21-2023 Complete blood count with white cell differential, automated Kymberly Echols LINTER OPERATOR-RESIDENTIAL CARE OFFICER Work Phone: Start: 09-21-2023 Comprehensive metabo lic panel Kymberly Echols LINTER OPERATOR-RESIDENTIAL CARE OFFICER Work Phone: Start: 08-11-2023 Incision & drainage abscess simple/single Dawn Uriarte DPM Work Phone: Start: 08-08-2023 End: 08-08-2023 Computerized ophthalmic imaging retina Ciro Lyles MD Work Phone: Start: 08-04-2023 C-reactive protein Ann Shipley MD Work Phone: Start: 08-04-2023 Complete blood count with white cell differential, automated Monse Shipley MD Work Phone: Start: 08-04-2023 Comprehensive metabo lic panel Monse Shipley MD Work Phone: Start: 07-29-2023 Lipid 1996 panel - Serum or Plasma Tom Srivastava DMD Work Phone: Start: 07-22-2023 PICC LINE PLACEMENT/REMOVAL Monse Shipley MD Work Phone: Start: 07-21-2023 Incision & drainage abscess simple/single Dawn Uriarte DPM Work Phone: Start: 06-29-2023 Mri lower extrem oth/thn jt w/o contr matrl Dawn Uriarte DPM Work Phone: Start: 06-21-2023 Injection single/business information analyst trigger point 1/2 muscles Garry Stephens MD Work Phone: Start: 06-20-2023 Mri spinal canal lum bar w/o contrast material Isreal Sigala MD Work Phone: Start: 06-14-2023 Radex foot complete minimum 3 views Dawn Uriarte DPM Work Phone: Start: 06-07-2023 Radex spine lumbscrl compl w/bending views min 6 Isreal Sigala MD Work Phone: Start: 05-05-2023 Incision & drainage abscess complicated/multiple Dawn Uriarte DPM Work Phone: Start: 05-02-2023 Radex foot complete minimum 3 views Rosalee ELIZONDO Work Phone: Start: 05-02-2023 Incision & drainage abscess simple/single Rosalee ELIZONDO Work Phone: Start: 04-21-2023 Assay of urine sodium N jalyn Davison MD Work Phone: Start: 04-21-2023 Urinalysis microscop ic only Fernando Davison MD Work Phone: Start: 04-21-2023 Urinalysis, reagent strip without microscopy Gonsalo Blackwood MD Work Phone: Start: 04-21-2023 End: 04-21-2023 Urinalysis microscopic only Gonsalo Blackwood MD Work Phone: Start: 04-21-2023 Urinalysis, reagent strip without microscopy Gonsalo Blackwood MD Work Phone: Start: 04-21-2023 Blood typing serolog ic abo Gonsalo Blackwood MD Work Phone: Start: 04-21-2023 Complete blood count with white cell differential, automated Gonsalo Blackwood MD Work Phone: Start: 04-21-2023 Comprehensive metabo lic panel Gonsalo Blackwood MD Work Phone: Start: 04-21-2023 Ecg routine ecg w/le ast 12 lds trcg only w/o i&r Gonsalo Blackwood MD Work Phone: Start: 03-01-2023 Dxa bone density doug dy 1/> sites axial andriael Fernie Paredes DO Work Phone: Start: 02-04-2023 Computerized ophthal linette imaging retina Ciro Lyles MD Work Phone: Start: 02-03-2023 Microscopic observat ion [Identifier] in Cervix by Cyto stain Fernie Paredes DO Work Phone: Start: 01-07-2023 Mammography Ciro olosn MD Work Phone: Start: 11-05-2022 End: 11-05-2022 Computerized ophthalmic imaging retina Ciro Lyles MD Work Phone: Start: 11-01-2022 Lipid 1996 panel - Serum or Plasma Tom Srivastava DMD Work Phone: Start: 10-30-2022 Paracentsis ant sherry b eye aspir aqueous spx Ciro Lyles MD Work Phone: Start: 09-29-2022 CBC AND ELECTRONIC DIFF Geronimo A Chuck LINTER OPERATOR-RESIDENTIAL CARE OFFICER Work Phone: Start: 09-29-2022 Complete blood count with white cell differential, automated Geronimo A Chuck LINTER OPERATOR-RESIDENTIAL CARE OFFICER Work Phone: Start: 09-29-2022 Comprehensive metabo lic panel Geronimo A Chuck LINTER OPERATOR-RESIDENTIAL CARE OFFICER Work Phone: Start: 06-07-2022 Culture bacterial quanttative colony count urine Dariusz Rangel MD Work Phone: Start: 06-01-2022 URODYNAMICS Ronda cerna CLIENT ENGAGEMENT SPECIALIST Start: 04-16-2022 Urnls dip stick/tabl et rgnt auto w/o microscopy Jonathan Cm RESIDENTIAL CARE OFFICER Work Phone: Start: 03-23-2022 Urnls dip stick/tabl et rgnt auto w/o microscopy Fernie Paredes DO Work Phone: Start: 03-02-2022 US Unspecified body region Garry Stephens MD Work Phone: Start: 02-02-2022 Microscopic observat ion [Identifier] in Cervix by Cyto stain Garry Stephens MD Work Phone: Start: 01-27-2022 Urnls dip stick/tabl et rgnt auto w/o microscopy Washington Garner MD Work Phone: Start: 01-06-2022 Mammography Washington coelho MD Work Phone: Start: 09-24-2021 End: 06-20-2025 History of cataract extraction History of cataract extraction Washington Garner MD Work Phone: Start: 08-25-2021 Microscopic observat ion [Identifier] in Cervix by Cyto stain Washington Garner MD Work Phone: Start: 02-13-2021 Radex shoulder compl ete minimum 2 views Asad Sagastume DO Work Phone: Start: 01-05-2021 Mammography Asad carpio DO Work Phone: Start: 04-14-2018 H/O: surgery S/P unilateral salpingo-oophorectomy Washington Garner MD Work Phone: Start: 04-07-2018 Colonoscopy Washington coelho MD Work Phone: Start: 02-24-2017 End: 02-25-2017 Dexa Bone Density Study (HP) Comments: See Note; NOTES: [facility] Imaging Services [address] [place], [place] [id number] Verdana 4d Dexa Bone Density Study () MR#: [id number] Acct: [id number] Name: ELENA GALEANO Rep #: [id number] : 1960 F 57 From: Torres Sanderson MD PCP: Elaine Oquendo Status: REG CLI Study: Dexa Bone Density Study (HP) Date of Exam: 02/24/17 Exam# [id number] Ordering Dr: Elaine Oquendo STUDY: DUAL ENERGY X-RAY ABSORPTIOMETRY / DXA REASON FOR EXAM: Female, 57 years old. The patient is postmenopausal. TECHNIQUE: Bone Mineral Density (BMD) measurements of lumbar spine and bilateral hips were obtained. COMPARISON: Comparison is made with prior study dated September 19, 2012. FINDINGS: Lumbar Spine (L1-L4): g/cm2 (1.211) / T-score (0.1) / Z-score (1.2) Findings are suggestive of normal bone density with a low fracture risk. Left Femur Total: g/cm2 (1.129) / T-score (1.0) / Z-score (1.8) Left Femoral Neck: g/cm2 (1.097) / T-score (0.4) / Z-score (1.6) Right Femur Total: g/cm2 (1.119) / T-score (0.9) / Z-score (1.7) Right Femoral Neck: g/cm2 (1.109) / T-score (0.5) / Z-score (1.7) The T-Scores on the most recent prior examination were: Lumbar Spine (L1-L4): There has been worsening of bone density since the previous examination. Left Femur Total: which represents a worsening of 2.8%. Right Femur Total: which represents a worsening of 6.6%. HPBD/Dexa Bone Density Study (HP) IMPRESSION: The patient is considered normal as outlined below according to World Lane Organization (WHO) criteria with a low fracture risk. There has been worsening of bone density since the previous examination. Reference Information: The T-score is the number of standard deviations above or below the standard which is normal for young adults at their peak bone mineral density. The World Health Organization (WHO) interprets the T-scores as follows: Above -1 Normal bone density Between -1 and -2.5 Osteopenia Equal to / or below -2.5 Osteoporosis As a practical clinical guideline, osteopenia may be graded as follows: Mild -1 through -1.5 Moderate -1.6 through -2.0 Severe -2.1 through -2.4 The Z-score is the number of standard deviations above or below age-matched controls. A Z-score of less than -1.5 would be considered abnormal. References: 1. NIH Osteoporosis and Related Bone Diseases http://www.osteo.org 2. International Society for Clinical Densitometry http://www.iscd.org 3. National Osteoporosis Foundation http://www.nof.org Electronically Signed: Torres Sanderson MD at 8:07 EDT Tel [phone], Service support , CC: Elaine Oquendo Business Controller: Signed Elaine Oquendo Work Phone: Start: 02-24-2017 End: 02-25-2017 SCREENING MAMM (CAD), BILAT Comments: See Note; NOTES: [facility] Imaging Services [address] [place] [address] Verdana 4d SCREENING MAMM (CAD), BILAT MR#: [id number] Acct: [id number] Name: ELENA GALEANO Rep #: [id number] : 1960 F 57 From: Torres Sanderson MD PCP: Elaine Oquendo Status: REG CLI Study: SCREENING MAMM (CAD), BILAT Date of Exam: 02/24/17 Exam# [id number] Ordering Dr: Elaine Oquendo MAMMOGRAPHY - BILATERAL SCREENING REASON FOR EXAM: Female, 57 years old. Routine annual screening examination. PERTINENT HISTORY: Aunt with breast cancer. History of leukemia. TECHNIQUE: Digital bilateral breast alexander (3D mammographic acquisition) in the CC and MLO projections. 2-D mediolateral oblique (MLO) and craniocaudad (CC) views of both breasts were obtained. CAD: Full Field Digital Mammography with Computer Added Detection was performed. COMPARISON: Comparison is made with prior study dated October 19, 2011 and May 25, 2010. FINDINGS: Breast Composition: There are scattered areas of fibroglandular density. The reservoir of the port is seen in the left axillary region. There are no dominant masses or suspicious calcifications. Stable benign appearing bilateral axillary lymph nodes. No other significant abnormalities are identified. There has been no significant change since the prior study. HPBI/SCREENING MAMM (CAD), BILAT IMPRESSION: Stable bilateral screening mammogram. Yearly follow-up mammogram recommended. (A) ASSESSMENT CATEGORY: BIRADS Category 2: Benign. A letter regarding these results will be sent to the patient by the facility within 30 days. Approximately 10% of breast cancers are not detected by mammography. A normal mammogram should not delay biopsy of a clinically suspicious abnormality. [id number] Electronically Signed: Torres Sanderson MD at 9:04 EDT Tel [phone], Service support , CC: Elaine Oquendo Business Controller: Signed Elaine Oquendo Work Phone: Start: 02-11-2017 End: 02-11-2017 Esophagus Only Comments: See Note; NOTES: [facility] Imaging Services [address] [place] [address] Verdana 4d Esophagus Only MR#: [id number] Acct: [id number] Name: ELENA GALEANO Rep #: [id number] : 1960 F 57 From: Torres Sanderson MD PCP: Elaine Oquendo Status: REG CLI Study: Esophagus Only Date of Exam: 02/11/17 Exam# [id number] Ordering Dr: Eliane Oquendo STUDY: X-RAY - ESOPHAGUS (BARIUM SWALLOW) WITH FLUOROSCOPY REASON FOR EXAM: Female, 57 years old. Six-month history of dysphagia mostly for pills. Patient has a history of chronic lymphocytic leukemia. TECHNIQUE: 15 view(s) of the esophagus were obtained following swallowing of barium. FLUOROSCOPY TIME (if supplied): (0:25) minutes/seconds COMPARISON: None. FINDINGS: There is no demonstrated esophageal foreign body. There is no demonstrated stricture or mucosal abnormality. Normal gastroesophageal junction, without a demonstrated hiatal hernia. The patient ingest a 12 mm tablet of barium without any difficulty. Normal visualized aortic arch and descending thoracic aorta. Normal visualized pulmonary parenchyma. A left-sided portacatheter is seen. Normal visualized osseous structures of the thorax. RAD/Esophagus Only IMPRESSION: Normal plain film x-ray examination (barium swallow) of the esophagus. Electronically Signed: Torres Sanderson MD at 20:01 EDT Tel [phone], Service support , CC: Elaine Oquendo Business Controller: Signed Elaine Oquendo Work Phone: Start: 02-12-2016 End: 02-12-2016 Abdomen/Pelvis WITH Contrast Comments: See Note; NOTES: [facility] Imaging Services [address] [place] [id number] [place] 4d Abdomen/Pelvis WITH Contrast MR#: [id number] Acct: [id number] Name: ELENA GALEANO Rep #: [id number] : 1960 F 56 From: Richardson Escalante MD PCP: Roxann Yan MD Status: REG CLI Study: Abdomen/Pelvis WITH Contrast Date of Exam: 02/12/16 Exam# [id number] Ordering Dr: Yahir Bertrand MD STUDY: CT ABDOMEN AND PELVIS WITH CONTRAST REASON FOR EXAM: Female, 56 years old. Left-sided pain for 2-3 months RADIATION DOSAGE (If Supplied By Facility): CTDIvol = ( 16.46 ) mGy, DLP = ( 1200.26 ) mGycm TECHNIQUE: Transaxial images were obtained from the dome of the diaphragm to the symphysis pubis with oral contrast. 100 ml of Isovue 300 contrast was administered. Sagittal and coronal images were reconstructed. Individualized dose optimization techniques were used for this CT. COMPARISON: November 27, 2012 CT. January 16, 2016 ultrasound FINDINGS: The visualized lung bases are unremarkable. The visualized portions of the heart are within normal limits. There is hepatomegaly with diffuse hepatic enlargement. Normal gallbladder and extrahepatic biliary system. Normal spleen. Normal pancreas. Normal bilateral adrenal glands. Normal right kidney. Normal left kidney. No hydronephrosis. Normal visualized stomach. Normal small intestine. Normal colon. There is non-visualization of the appendix. Normal abdominal aorta. Normal inferior vena cava. Normal retroperitoneum. Normal urinary bladder. Normal visualized uterus. No free fluid in the abdomen or pelvis. Normal abdominal wall. Degenerative change at L4-5. IMPRESSION: No dominant mass or obstruction. Hepatomegaly. Electronically Signed: Richardson Escalante MD at 16:57 EDT , Service support [phone], CC: Roxann Yan MD; Yahir Bertrand Business Controller: Signed Elaine Oquendo Start: 01-16-2016 End: 01-16-2016 Abdomen Limited Comments: See Note; NOTES: [facility] Imaging Services [address] [place] [id number] Verda 4d Abdomen Limited MR#: [id number] Acct: [id number] Name: ELENA GALEANO Rep #: [id number] : 1960 F 55 From: Magdiel Cunningham MD PCP: Roxann Yan MD Status: REG CLI Study: Abdomen Limited Date of Exam: 01/16/16 Exam# [id number] Ordering Dr: Yahir Bertrand MD STUDY: ABDOMINAL ULTRASOUND - RIGHT UPPER QUADRANT REASON FOR VISIT: Female, 55 years old. Elevated LFTs TECHNIQUE: Ultrasound evaluation of the right upper quadrant was performed with real-time and static multani-scale imaging. TECHNICAL QUALITY: Adequate. COMPARISON: None. FINDINGS: Liver: The liver measures 16.3 cm. There is increased echogenicity consistent with fatty infiltration. The bile ducts are within normal limits. There is hepatic color flow. The direction of portal flow is hepatopetal. There is no demonstrated mass lesion. Gallbladder: Normal distended gallbladder. The gallbladder wall measures 2.0 mm. There is a negative sonographic Joya's sign. There is no pericholecystic fluid. There are no gallstones. Common Bile Duct (C.B.D.): The common bile duct measures 2.0 mm. Pancreas: Normal size of the head, body and tail of the pancreas. There is normal echogenicity of the pancreas. There is no demonstrated pancreatic mass or cyst. Right Kidney: Normal size of the right kidney. The right kidney measures 12.1 x 5.7 x 4.6 cm. Normal renal cortex. The right cortex measures 1.5 cm. There is no demonstrated renal mass or cyst. There is no right hydronephrosis. IMPRESSION: Diffuse fatty infiltration of the liver, no discrete lesion Electronically Signed: Hayden Cunningham MD at 9:55 EDT Tel , Service support [phone], CC: Roxann Yan MD; Yahir Bertrand Business Controller: Signed Elaine Oquendo Start: 12-10-2015 End: 12-10-2015 Pulmonary Function Report Comp Comments: See Note; NOTES: [facility] Pulmonary Services/Neurology [address] [place] [address] Pulmonary Function Test (Comp) MR#: [id number] Acct: [id number] Name: ELENA GALEANO Rep #: [id number] : 1960 55 From: Carol Warren MD Referring Dr: Carol Warren MD Status: REG CLI Ordering Dr: Carol Warren MD Date: 12/08/15 Location: [facility] Sex: F C DATE OF SERVICE: 12/08/2015 BRIEF HISTORY OF PRESENT ILLNESS: The patient is a 55-year-old female, currently under the care of myself, who presents for a complete pulmonary function test secondary to a diagnosis of abnormal PFTs. Respiratory therapist reported good patient effort and reproducible results. INTERPRETATION: Forced expiration spirometry demonstrates a mild large airways obstructive ventilatory defect. This completely resolves following bronchodilators with improvement in FEV1. Spirograms are of good quality and do not plateau indicating slowing emptying areas of the lung. The respiratory flow volume loop shows normalization of scooping following bronchodilators. Lung volumes by body plethysmography show all lung volumes within normal limits. Diffusion capacity by single breath carbon monoxide is preserved at 82% of predicted. Airway resistance is elevated. This study was compared to a previous study completed on August 05, 2015, which shows significant improvement in DLCO and lung volumes. IMPRESSION: Fully reversible mild large airways obstructive ventilatory defect consistent with a diagnosis of asthma. There has been significant improvement compared to previous testing. MD Corwin ARNOLD C: The patient's primary care physician T: [facility] JOB: [id number] 12/10/15 0737 <Electronically signed by Carol Warren MD> Date Carol Warren MD CC: Carol Warren MD; Roxann Yan MD Date Dictated: 12/09/15 0954 Date Transcribed: 12/09/1554 Business Controller: Signed Elaine Oquendo Start: 08-06-2015 End: 08-06-2015 Pulmonary Function Report Comp Comments: See Note; NOTES: [facility] Pulmonary Services/Neurology [address] [place] [address] Pulmonary Function Test (Comp) MR#: [id number] Acct: [id number] Name: ELENA GALEANO Rep #: [id number] : 1960 55 From: Carol Warren MD Referring Dr: Carol Warren MD Status: REG CLI Ordering Dr: Carol Warren MD Date: 08/05/15 Location: [facility] Sex: F C DATE OF SERVICE: 08/05/2015 BRIEF HISTORY OF PRESENT ILLNESS: The patient is a 55-year-old female, currently under the care of myself, who presents for a complete pulmonary function test secondary to a diagnosis of dyspnea. The respiratory therapist reported good patient effort and reproducible results. INTERPRETATION: Forced expiration spirometry demonstrates a mild large airways obstructive ventilatory defect. There is no significant response to bronchodilators using strict ATS criteria. Spirograms are of good quality and do not plateau indicating slowing emptying areas of the lung. The respiratory flow volume loop shows decreased expiratory flow rates at high lung volumes consistent with small airways obstruction. Lung volumes by body plethysmography show all lung volumes at the lower limit of normal. Diffusion capacity by single breath carbon monoxide is moderately reduced at 62% of predicted. Airway resistance is normal. No previous studies are available for comparison. IMPRESSION: Irreversible mild large airways obstructive ventilatory defect with a reduction in diffusion capacity out of proportion to level of obstruction, indicating a probable pulmonary vascular disorder. CAROL WARREN MD T: NTS JOB: [id number] 08/06/15 1647 <Electronically signed by Carol Warren MD> Date Carol Warren MD CC: Carol Warren MD; Roxann Yan MD Date Dictated: 08/06/15 0735 Date Transcribed: 08/06/15734 Business Controller: Signed Elaine Oquendo Start: 08-04-2015 End: 08-04-2015 Sleep Study Report Comments: See Note; NOTES: [facility] [address] [place] [address] Polysomnography with NCPAP MR#: [id number] Acct: [id number] Name: ELENA GALEANO Rep #: [id number] : 1960 55 From: Delilah Crespo MD PCP: Roxann Yan MD Status: REG CLI Ordering Dr.: Carol Warren MD Date: 07/31/15 Sex: F C DATE OF SERVICE: 07/31/2015 SCORING RULES: Respiratory events were acquired and scored in accordance with the Recommended Standards and Specifications as outlined in the AASM Manual for the Scoring of Sleep and Associated Events ( most recent version). Please note that a reference to [facility] AHI in this report is consistent with the current Hypopnea definition according to Medicare Criteria and an AASM AHI reference is consistent with the current Hypopnea definition according to the AASM criteria and is recognized by [facility] as the RDI. PROCEDURE: The study was attended continuously by a polygraph technician. Monitored parameters included left and right EOG, frontal, central, and occipital EEG, mental and submental EMG, left and right anterior tibialis EMG, signal ECG waveform, snore, continuous airflow with PAP device flow signal, chest and abdominal plethysmography efforts, oxygen saturation with heart rate, and body positioning with video monitoring. REFERRING PHYSICIAN: Dr. Carol Warren. HISTORY OF PRESENT ILLNESS: The patient is a 55-year-old female with calculated body mass index of 38.3 and Marion Sleepiness Scale score of 9/24. The patient has reported history of sleep disordered breathing as diagnosed by overnight polysomnogram July 04, 2015, showing an overall AHI of 4.5, supine AHI of 13.5, and REM AHI of 13.6. Note, the overall RDI was 15.9 with a REM RDI of 34.6. The patient is now undergoing CPAP titration to determine appropriate CPAP setting to normalize apnea/hypopnea index and attempt to maintain oxygen saturations greater than 90%. ADDITIONAL MEDICAL HISTORY: Significant for hypogammaglobulinemia, emphysema, hypertension, and CLL. MEDICATIONS REPORTED AT TIME OF STUDY: Include magnesium oxide, Prilosec, Maxzide, albuterol, Percocet, and aspirin. CPAP MASK USED DURING THIS TITRATION: Not specified. SLEEP STUDY DATA: The overnight titration began at 1054:25 p.m. and ended at 0501:38 a.m. for a total recording time of 367.2 minutes of which the patient slept 178 minutes for a calculated sleep efficiency of 48.5%. Sleep latency was 79.6 minutes with a REM latency of 164.5 minutes. Note that poor sleep efficiency primarily appears due to sleep onset insomnia with the patient not being able to fall sleep until approximately 1 a.m. with consolidation of sleep. This is likely due to the patient acclimating to CPAP therapy. However, note that normal bedtime is not available for my review at the time of this dictation. Sleep stage stages during the recording were as follows, N1 2.2%, N2 36.2%, N3 36%, REM 25.6% of total sleep. There were a total of 46 arousals during the study, resulting in an overall arousal index of 15.5. The respiratory arousal index was 4 while spontaneous arousal index was 10.4. Limb movement arousal index was 1. CONTINUOUS POSITIVE AIRWAY PRESSURE DATA: The patient was titrated on CPAP settings of 7, 9, 10, and 12 cm of water with humidification and EPR setting of 3. The patient's overall apnea/hypopnea index and RDI is normalized on a CPAP setting of 12 cm of water with humidification. However, the REM RDI with the patient supine remains mildly elevated at 7.7. On this setting, mean oxygen saturation was 93.5% with a minimum oxygen saturation of 87%, associated with REM related respiratory events. The arousal index was mildly elevated at 18.4 likely due to acclimation. Snoring still was present on this setting. Note on lower tested CPAP settings, overall RDI is elevated in the mild range and REM RDI increases to the moderate range. ELECTROCARDIOGRAM DATA: Mean heart rate during sleep was 76 beats per minute with a range of 63-90 beats per minute. No significant arrhythmia was noted. LIMB MOVEMENT DATA: There were 40 periodic limb movements during the study, resulting in a periodic limb movement index of 13.5. Three of these limb movements were associated with arousal resulting in a periodic limb movement arousal index of 1. DIAGNOSIS: Obstructive sleep apnea syndrome. IMPRESSION: 1. At a CPAP setting of 12 cm of water with humidification, the patient's overall apnea/hypopnea index and RDI is normalized. However, the REM RDI remained in the mild range and oxygen saturations still fall as low as 87%. 2. Abnormal sleep architecture likely secondary to first night effect, possible medication effect, and titration with no prior acclimation. RECOMMENDATIONS: 1. Due to the patient still having elevated REM index on CPAP setting of 12 cm of water with humidification (the highest tested during this study) would recommend patient be initiated on CPAP at 13 cm of water with humidification and EPR setting of 3. Would ask that the patient have a CPAP machine with a smartcard so that the smartcard could be downloaded in approximately 4 weeks. If the apnea/hypopnea index remains elevated of the patient is clinically symptomatic, is likely due to residual REM-related respiratory events. At such time, I would empirically increase the CPAP setting to 14 or 15 cm of water with humidification. 2. Encouraged weight loss to optimal body mass index. 3. Recommend the patient be advised to avoid activities or medications that could exacerbate sleep disordered breathing. 4. Recommend the patient be advised not to drive or operate heavy machinery when sleepy. 5. The patient does endorse restlessness on the provided sleep questionnaire, however, the patient's periodic limb movement index of 13.5 falls within the normal range. INTERPRETING PHYSICIAN: Delilah Crespo Jr. MD. Delilah Crespo MD T: NTS JOB: [id number] CC: Delilah Crespo MD 11 1108/04/15 1649 <Electronically signed by Delilah Crespo MD> Date Delilah Crespo MD Co-signature (if applicable) Date Signed Elaine Oquendo Start: 07-21-2015 End: 07-21-2015 Sleep Study Report Comments: See Note; NOTES: [facility] [address] [place] [address] Polysomnography MR#: [id number] Acct: [id number] Name: ELENA GALEANO Rep #: [id number] : 1960 55 From: Delilah Crespo MD PCP: Roxann Yan MD Status: REG CLI Ordering Dr.: Carol Warren MD Date: 07/04/15 Sex: F C DATE OF SERVICE: SCORING RULES: Respiratory events were acquired and scored in accordance with the Recommended Standards and Specifications as outlined in the AASM Manual for the Scoring of Sleep and Associated Events ( most recent version). Please note that a reference to [facility] AHI in this report is consistent with the current Hypopnea definition according to Medicare Criteria and an AASM AHI reference is consistent with the current Hypopnea definition according to the AASM criteria and is recognized by [facility] as the RDI. PROCEDURE: The study was attended continuously by a polygraph technician. Monitored parameters included left and right EOG, frontal, central, and occipital EEG, mental and submental EMG, left and right anterior tibialis EMG, signal ECG waveform, snore, continuous airflow with thermistor and nasal pressure transducer, chest and abdominal plethysmography efforts, oxygen saturation with heart rate, and body positioning with video monitoring. REFERRING PHYSICIAN: Dr. Carol Warren. HISTORY OF PRESENT ILLNESS: The patient is a 55-year-old female with calculated body mass index of 39.1 and Marion Sleepiness Scale score of 9/24. The patient has a history of snoring, recurrent awakenings during the night, daytime sleepiness and fatigue, nocturia, and is undergoing overnight polysomnogram to evaluate for possible sleep disordered breathing or other primary sleep disorder. ADDITIONAL MEDICAL HISTORY: Significant for hypogammaglobulinemia, dyspnea, emphysema, hypertension, CLL. MEDICATIONS REPORTED AT TIME OF STUDY: Include magnesium oxide, Prilosec, Maxzide, Albuterol, multivitamin, Percocet, aspirin. SLEEP STUDY DATA: The overnight polysomnogram began at 1042:45 p.m. and ended at 0516:51 a.m. for a total recording time of 394.1 minutes of which the patient slept 316.7 minutes for a calculated sleep efficiency of 80.4%. Sleep latency was 0.4 minutes with a REM latency of 118 minutes. Sleep stage percentages were as follows: N1 10.9%, N2 40.6%, N3 30.5%, REM 18.1% of total sleep. There were a total of 195 arousals during the study resulting in an overall arousal index of 36.9. The respiratory arousal index was 14.4 while spontaneous arousal index was 17.2. Limb movement arousal index was mildly elevated at 5.3. RESPIRATORY DATA: Snoring was present throughout the recording. All respiratory events recorded were of obstructive nature. The overall AHI was 4.5 while RDI was 15.9. Respiratory events did not appear to be significantly influenced by supine positioning, but were by REM sleep. The REM AHI was 13.6 versus non-REM AHI of 2.5. The REM RDI was 34.6 versus non-REM RDI of 11.8. Note had the patient had a longer duration of REM sleep, overall apnea/hypopnea index and RDI would have been worse. Mean oxygen saturation during the study was 93.8% with minimum oxygen saturation of 88%. Oxygen saturations were at their worst when the patient was in REM sleep. ELECTROCARDIOGRAM DATA: Mean heart rate during sleep was 70 beats per minute with a range of 58-84 beats per minute. No significant arrhythmias were noted. LIMB MOVEMENT DATA: There were 204 periodic limb movements during the study resulting in a periodic limb movement index of 38.6. Twenty-eight of these limb movements were associated with arousal resulting in a periodic limb movement arousal index of 5.3. These numbers are elevated and do raise concern for possible underlying sleep movement disorder. Clinical correlation is needed with consideration of diagnosis such as restless leg syndrome. Such disorders could be a result of patient's recurrent awakenings during the night. DIAGNOSIS: Obstructive sleep apnea syndrome. (327.23) IMPRESSION: 1. Moderate to severe REM-related obstructive sleep apnea syndrome. Note that AHI when the patient was in non-REM sleep was mild versus RDI that was in the mild range. Respiratory events were associated with arousal as well as oxygen desaturations as noted above. 2. Frequent periodic limb movements were present throughout the recording as noted above. Clinical correlation is needed. 3. Abnormal sleep architecture likely secondary to first night effect, possible medication effect, respiratory events, and limb movements. RECOMMENDATIONS: 1. Given subjective complaints, the patient having medical conditions that could be exacerbated by sleep disordered breathing including hypertension, and the findings of this study, would recommend the patient be treated with positive airway pressure therapy. If this is the choice of therapy, the patient should either undergo a positive airway pressure titration to determine appropriate CPAP setting to normalize apnea/hypopnea index, or be titrated by means of autoPAP therapy. The latter may be a better means of titrating the patient given [id number] variability of REM sleep with most patient's respiratory events occurring during REM sleep. If autoPAP is the means of titration, would recommend settings of 6 to 12 cm of water with humidification with download of smartcard in approximately 4 weeks to determine if AHI is normalized or if additional changes need to be made to the pressure settings. 2. Clinical correlation and treatment of limb movements as noted above. 3. Encouraged weight loss to optimal body mass index. 4. Recommend the patient be advised to avoid activities or medications that could exacerbate sleep disordered breathing. 5. Recommend the patient be advised not to drive or operate heavy machinery when sleepy. INTERPRETING PHYSICIAN: Delilah Crespo Jr., MD Delilah Crespo MD T: AIYANA JOB: [id number] CC: Delilah Crespo MD 14 1515 07/21/152006 <Electronically signed by Delilah Crespo MD> Date Delilah Crespo MD Co-signature (if applicable) Date Signed Elaine Oquendo Start: 06-04-2015 End: 06-04-2015 Emergency Department Summary Comments: See Note; NOTES: [facility] Medical Records Department [address] [place] [address] Emergency Department Summary MR#: [id number] Acct: [id number] Name: ELENA GALEANO Rep #: [id number] : 1960 55 From: Clara Vargas MD PCP: Roxann Yan MD Status: [facility] ER DATE OF SERVICE: 05/26/2015 This patient was seen and examined with Dr. Naty Cifuentes. HISTORY OF PRESENT ILLNESS: The patient presents with chief complaint of dizziness. The patient had symptoms when she woke up this morning. She has continuous dizziness that is worsened by any change in position, including changing to standing, sitting, moving her head or even moving her eyes. Associated nausea. No weakness or paresthesias. No fever or recent infection. The patient does endorse surgery last week for a right total knee replacement. The patient has had similar complaint of dizziness with nausea due to an inner ear infection in the past. PAST MEDICAL HISTORY: Denies history or family history of stroke, coronary artery disease or myocardial infarction. Denies diabetes. History is positive for hypertension, lymphoma, currently in remission, inner ear infection. PHYSICAL EXAMINATION: VITAL SIGNS: The patient is afebrile, hypertensive at ____. Remainder of her vitals unremarkable. GENERAL: The patient is a well-nourished and well-developed lying in bed, appears uncomfortable. HEENT: Head is normocephalic and atraumatic. Pupils are equal, round and reactive to light with extraocular movement intact. Mucous membranes are moist. NECK: Supple and nontender. HEART: Regular in rate and rhythm. LUNGS: Clear to auscultation bilaterally. ABDOMEN: Soft and nontender, nondistended. EXTREMITIES: Nontender, the patient has a well-healing surgical scar with kwasi over the right knee. No induration, erythema or exudate. SKIN: Normal color and moist. NEUROLOGIC: The patient has no focal neuro deficits, including normal strength, sensation, and cerebellar testing. EMERGENCY DEPARTMENT COURSE: The patient had labs performed, with a normal CBC showing no signs of leukocytosis or anemia. BMP also unremarkable except for mildly elevated glucose at 136. The patient was given Valium, normal saline bolus and Zofran for her symptoms. She had improvement, but was still dizzy when sitting and did not feel comfortable standing. She was given meclizine by mouth and after a period of observation, she had almost complete resolution of her symptoms. She was able to ambulate without assistance to the bathroom and remained asymptomatic. The patient's symptoms given that she has had very similar symptoms in the past do seem most consistent with peripheral vertigo thus no CT scan of the head was performed. The patient will be discharged with a prescription for meclizine. We discussed when she should return to the Emergency Department. Family member present to drive her home. The patient was symptom-free at the time of discharge. DISPOSITION: Home IMPRESSION: Vertigo, improved. Clara Vargas MD T: NTS JOB: [id number] Date Clara Vargas MD 06/04/15 0003 <Electronically signed by Naty Cifuentes MD> Cosigner Signature (If Indicated): Date Naty Cifuentes MD CC: Roxann aYn MD Date Dictated: 05/26/15 1639 Date Transcribed: 05/26/151638 Business Controller: Alexys Oquendo Start: 05-31-2015 End: 05-31-2015 Emergency Department Summary Comments: See Note; NOTES: [facility] Medical Records Department [address] [place] [address] Emergency Department Summary MR#: [id number] Acct: [id number] Name: ELENA GALEANO Rep #: [id number] : 1960 55 From: Clara Vargas MD PCP: Roxann Yan MD Status: [facility] ER DATE OF SERVICE: 05/26/2015 This patient was seen and examined with Dr. Naty Cifuentes. HISTORY OF PRESENT ILLNESS: The patient presents with chief complaint of dizziness. The patient had symptoms when she woke up this morning. She has continuous dizziness that is worsened by any change in position, including changing to standing, sitting, moving her head or even moving her eyes. Associated nausea. No weakness or paresthesias. No fever or recent infection. The patient does endorse surgery last week for a right total knee replacement. The patient has had similar complaint of dizziness with nausea due to an inner ear infection in the past. PAST MEDICAL HISTORY: Denies history or family history of stroke, coronary artery disease or myocardial infarction. Denies diabetes. History is positive for hypertension, lymphoma, currently in remission, inner ear infection. PHYSICAL EXAMINATION: VITAL SIGNS: The patient is afebrile, hypertensive at ____. Remainder of her vitals unremarkable. GENERAL: The patient is a well-nourished and well-developed lying in bed, appears uncomfortable. HEENT: Head is normocephalic and atraumatic. Pupils are equal, round and reactive to light with extraocular movement intact. Mucous membranes are moist. NECK: Supple and nontender. HEART: Regular in rate and rhythm. LUNGS: Clear to auscultation bilaterally. ABDOMEN: Soft and nontender, nondistended. EXTREMITIES: Nontender, the patient has a well-healing surgical scar with kwasi over the right knee. No induration, erythema or exudate. SKIN: Normal color and moist. NEUROLOGIC: The patient has no focal neuro deficits, including normal strength, sensation, and cerebellar testing. EMERGENCY DEPARTMENT COURSE: The patient had labs performed, with a normal CBC showing no signs of leukocytosis or anemia. BMP also unremarkable except for mildly elevated glucose at 136. The patient was given Valium, normal saline bolus and Zofran for her symptoms. She had improvement, but was still dizzy when sitting and did not feel comfortable standing. She was given meclizine by mouth and after a period of observation, she had almost complete resolution of her symptoms. She was able to ambulate without assistance to the bathroom and remained asymptomatic. The patient's symptoms given that she has had very similar symptoms in the past do seem most consistent with peripheral vertigo thus no CT scan of the head was performed. The patient will be discharged with a prescription for meclizine. We discussed when she should return to the Emergency Department. Family member present to drive her home. The patient was symptom-free at the time of discharge. DISPOSITION: Home IMPRESSION: Vertigo, improved. Clara Vargas MD T: [facility] JOB: [id number] Date Clara Vargas MD Cosigner Signature (If Indicated): Date CC: Roxann Yan MD Date Dictated: 05/26/151638 Date Transcribed: 05/26/151638 Business Controller: Signed Elaine Jere Start: 05-29-2015 End: 05-29-2015 Discharge Instruction Comments: See Note; NOTES: [facility] Medical Records Department [address] [place] [id number] Discharge Instruction 05/26/15 1626 MR#: [id number] Acct: [id number] Name: ELENA GALEANO Rep #: [id number] : 1960 55 From: Clara Vargas MD PCP: Roxann Yan MD Status: DEP ER ED Disposition - Plan for ED Patient: Disposition: Home or Assisted Living Chief Complaint: Dizziness Instructions: ED Vertigo, Unspecified Prescriptions: Meclizine HCl [Antivert] 25 mg PO 4X/DAY PRN PRN 7 Days PRN Reason: Vertigo Referrals: Roxann Yan MD [Primary Care Provider] - 3-5 Days if not improving What to do if you have Problems For any increased pain, shortness of breath, bleeding, nausea or vomiting, chest pain, or any unexpected problems, contact your doctor. Call [facility] ([phone]) or report to the closest Emergency Room. Call 911 if necessary. 05/26/15 1630 <Electronically signed by Clara Vargas MD> Date Clara Vargas MD 05/29/15 0711<Electronically signed by Naty Cifuentes MD> Cosigner Signature (If Indicated): Date Naty Cifuentes MD CC: Roxann Yan MD Elaine Oquendo Start: 12-28-2014 End: 12-28-2014 Chest WITH Contrast Comments: See Note; NOTES: [facility] Imaging Services [address] [place] [address] CAT Scan Report MR#: [id number] Acct: [id number] Name: ELENA GALEANO Rep #: [id number] : 1960 F 54 From: Yoselin Ku MD PCP: Roxann Yan MD Status: REG CLI Study: Chest WITH Contrast Date of Exam: 12/28/14 Exam# [id number] Ordering Dr: Yahir Bertrand MD STUDY: CT CHEST WITH CONTRAST REASON FOR EXAM: Female, 54 years old. Long-term cough, lymphoma, Port-A-Cath RADIATION DOSAGE (If Supplied By Facility): CTDIvol = ( 13.07 ) mGy, DLP = ( 748.12 ) mGycm TECHNIQUE: High resolution transaxial imaging was performed following intravenous administration of 100ML ml of Isovue 300 contrast material. Multiplanar coronal and sagittal images were reformatted. COMPARISON: CT chest November 16, 2011 FINDINGS: Port-A-Cath is seen overlying the left chest. The tip is in the right atrium. There is an overall pattern of scattered areas of subtle groundglass opacity is nonspecific a few areas of emphysematous change. There is no demonstrated pleural abnormality. There is mild cardiac enlargement. Normal mediastinum. Normal hilar regions. Normal enhanced pulmonary arteries. There is atherosclerotic calcification of the aortic arch with tortuosity and elongation of the aortic arch and descending thoracic aorta. Normal osseous structures. The liver is enlarged and fatty infiltrated more pronounced than prior study allowing for differences in technique. There is borderline splenomegaly. The spleen is mildly inhomogeneous allowing for the timing of the procedure. There is a small hiatal hernia. IMPRESSION: Nonspecific subtle groundglass opacities which may represent some element of air trapping and underlying chronic lung disease. There are scattered areas of emphysematous change. The lungs appear somewhat hyperinflated suggesting chronic obstructive pulmonary disease. Port-A-Cath Hepatomegaly. Borderline splenomegaly. Electronically Signed: Yoselin Ku MD at 10:15 EST Tel , Service support [phone], CC: Roxann Yan MD; Yahir Bertrand Business Controller: Signed Elaine Oquendo Start: 05-07-2014 End: 05-07-2014 Inital Evaluation - PT Comments: See Note; NOTES: [facility] [place], [place] [address] Fax REHABILITATION SERVICES INITIAL EVALUATION MR#: [id number] Acct: [id number] Name: ELENA GALEANO Rep #: [id number] : 1960 54 From: Melody Brannon Referring Dr.: Roxann Yan MD Status: REG RCR Insurance: [facility] Eval Date: MED MUT SECONDARY DATE OF SERVICE: Elena Galeano is a 54-year-old female referred to physical therapy by Dr. Yan with a medical diagnosis of left knee pain. SUBJECTIVE: The patient reports that she started having left knee pain approximately 4 weeks ago. She woke up and the pain was fair. Approximately 2 weeks ago, she was helping her mow, felt a pop and felt like her knee collapsed to the side. Pain at its worst is an 8/10, currently 8/10, best is a 5/10. The patient reports no numbness or tingling and no radiating pain. Pain is dull and achy on the medial aspect of the knee as well as under the patella. She does have a shooting pain every once in awhile that goes down the medial side of her knee. Aggravated by being on it. Eases are Aleve. She did go to the Emergency Room approximately a week after the injury and they took x-rays, which were negative. She reports that she is unable to ascend and descend stairs reciprocally and that has been happening for the past 4 weeks. She does have steps in her home. The patient reports that she has no problems sleeping. She sleeps on her side. WORK: She works at [employer], sitting most of the day at a desk and goals are to be pain free. PAST MEDICAL HISTORY: Includes lymphoma, which she is continuing her last treatment this month, blood pressure and she has an extra heart rhythm. MEDICATIONS: See list. OBJECTIVE: POSTURE: Forward head, rounded shoulders, increased kyphosis. The patient is overweight. GAIT: Antalgic. She has decreased stance time on the left lower extremity with decreased full extension. PALPATION: Tender along the medial joint line and patellar tendon on the left. RANGE OF MOTION: 0 degrees of extension with overpressure; however, she can achieve approximately negative 10 degrees of extension independently, flexion to 130 degrees with pain. SENSATION/REFLEXES: Intact. FLEXIBILITY: Hamstrings have a moderate restriction, gastroc has a moderate restriction. The patient reports pain with hamstring stretching. STRENGTH: Core strength/stabilization is poor. Hip is 4/5 throughout. Knee flexion and extension is 4/5 with pain. Ankle dorsiflexion and plantarflexion is 5/5. BALANCE: The patient is able to weight shift; however, she is unable to single leg stance secondary to pain in the left knee. SPECIAL TESTS: Ascend and descend stairs nonreciprocally. INITIAL TREATMENT EVALUATION: Educated the patient on diagnosis and plan of care. The patient is agreeable to plan of care. Instructed the patient on home exercise program, which included quad sets , straight leg raise, VMO straight leg raise and hamstring stretching. ASSESSMENT: Elena Galeano is a 54-year-old female referred to physical therapy by Dr. Yan with a medical diagnosis of left knee pain. The patient presents with hypomobility. The patient has decreased lower extremity strength, flexibility and muscular endurance. She has an abnormal gait pattern, decreased proprioception, and she is unable to ascend and descend stairs reciprocally. The patient's rehabilitation potential is fair. The patient will benefit from skilled physical therapy to solve the following problems and meet the following goals. PROBLEM LIST: 1. Decreased knowledge of home exercise program. 2. Decreased strength. 3. Abnormal gait pattern. 4. Unable to single leg stance. 5. Inability to ascend and descend stairs reciprocally. GOALS: 1. The patient will be independent with home exercise program progression. 2. The patient will demonstrate 5/5 strength in lower extremity where deficit to ease ADLs. 3. The patient will ambulate greater than 300 feet with a normalized gait pattern. 4. The patient will single leg stance for 30 seconds on the left lower extremity with 0/10 pain. 5. The patient will ascend and descend 8-inch stairs reciprocally with one handrail to ease ADLs. PLAN OF CARE: The patient will be seen 3 times a week for 3 weeks. The patient will be educated on diagnosis and plan of care. The patient will be educated in home exercise program progression. Interventions to include therapeutic exercise, therapeutic activity, neuromuscular education, gait, manual modalities. The patient's anticipated discharge plan is independent with home exercise program and return to normalized activities with decreased pain. Melody Brannon DPT T: [facility] JOB: [id number] <Electronically signed by Melody Brannon > 05/07/14 0859 CC: Signed For Medicare only, by signing this I certify the plan of care. __ Physicians Signature Date Elaine Oquendo Start: 09-18-2013 End: 09-24-2013 Liver Comments: See Note; NOTES: [facility] Imaging Services [address] [place] [address] Ultrasound Report MR#: [id number] Acct: [id number] Name: ELENA GALEANO Rep #: [id number] : 1960 F 53 From: Magdiel Cunningham MD PCP: Roxann Yan MD Status: REG CLI Study: Liver Date of Exam: 09/18/13 Exam# [id number] Ordering Dr: Roxann Yan MD STUDY: ABDOMINAL ULTRASOUND - RIGHT UPPER QUADRANT REASON FOR VISIT: Female, 53 years old. Elevated LFTs TECHNIQUE: Ultrasound evaluation of the right upper quadrant was performed with real-time and static multani-scale imaging. TECHNICAL QUALITY: Adequate. COMPARISON: None. FINDINGS: Liver: The liver measures 15.9 cm. There is increased echogenicity consistent with fatty infiltration. The bile ducts are within normal limits. There is hepatic color flow. The direction of portal flow is hepatopetal. There is no demonstrated mass lesion. Gallbladder: Normal distended gallbladder. The gallbladder wall measures 1.1 mm. There is a negative sonographic Joya's sign. There is no pericholecystic fluid. There are no gallstones. Common Bile Duct (C.B.D.): The common bile duct measures 2.5 mm. Pancreas: Normal size of the head, body and tail of the pancreas. There is normal echogenicity of the pancreas. There is no demonstrated pancreatic mass or cyst. Right Kidney: Normal size of the right kidney. The right kidney measures 11 x 4.6 x 5.0 cm. Normal renal cortex. The right cortex measures 1.4 cm. There is no demonstrated renal mass or cyst. There is no right hydronephrosis. IMPRESSION: Fatty liver, otherwise unremarkable study Electronically Signed: Hayden Cunningham M.D. at 11:08 EST , Service support [phone], CC: Roxann Yan MD Business Controller: Signed Roxann Yan Work Phone: Start: 05-31-2013 Timo Randhawa MD Work Phone: Start: 10-24-1978 End: 10-24-1978 Appendectomy Myrtle Kay H/O: surgery S/P unilateral salpingo-oophorectomy Fernie Paredes DO Work Phone: H/O: surgery S/P unilateral salpingo-oophorectomy Fernie Paredes DO Work Phone: H/O: surgery S/P unilateral salpingo-oophorectomy Fernie Paredes DO Work Phone: H/O: surgery S/P unilateral salpingo-oophorectomy Fernie Paredes DO Work Phone: H/O: surgery S/P unilateral salpingo-oophorectomy Fernie Paredes DO Work Phone: H/O: surgery S/P unilateral salpingo-oophorectomy Fernie Paredes DO Work Phone: H/O: surgery S/P unilateral salpingo-oophorectomy Fernie Paredes DO Work Phone: H/O: surgery S/P unilateral salpingo-oophorectomy Fernie Paredes DO Work Phone: H/O: surgery S/P unilateral salpingo-oophorectomy Fernie Paredes DO Work Phone: H/O: surgery S/P unilateral salpingo-oophorectomy Fernie Paredes DO Work Phone: H/O: surgery S/P unilateral salpingo-oophorectomy Fernie Paredes DO Work Phone: H/O: surgery S/P unilateral salpingo-oophorectomy Fernie Paredes DO Work Phone: H/O: surgery S/P unilateral salpingo-oophorectomy Fernie Paredes DO Work Phone: H/O: surgery Status post eye surgery Dena Lyles MD Work Phone: H/O: surgery S/P unilateral salpingo-oophorectomy Fernie Paredes DO Work Phone: History of cataract extraction History of cataract extraction, unspecified laterality Fernie Paredes DO Work Phone: History of cataract extraction History of cataract extraction, unspecified laterality Fernie Paredes DO Work Phone: History of cataract extraction History of cataract extraction, unspecified laterality Fernie Paredes DO Work Phone: History of cataract extraction History of cataract extraction, unspecified laterality Ferine Paredes DO Work Phone: History of cataract extraction History of cataract extraction, unspecified laterality Fernie Paredes DO Work Phone: History of cataract extraction History of cataract extraction, unspecified laterality Fernie Paredes DO Work Phone: History of cataract extraction History of cataract extraction, unspecified laterality Fernie Paredes DO Work Phone: History of cataract extraction History of cataract extraction, unspecified laterality Fernie Paredes DO Work Phone: History of cataract extraction History of cataract extraction, unspecified laterality Fernie Paredes DO Work Phone: History of cataract extraction History of cataract extraction, unspecified laterality Fernie Paredes DO Work Phone: History of cataract extraction History of cataract extraction, unspecified laterality Fernie Paredes DO Work Phone: History of cataract extraction History of cataract extraction, unspecified laterality Fernie Paredes DO Work Phone: History of cataract extraction History of cataract extraction, unspecified laterality Fernie Paredes DO Work Phone: Total knee replacement Myrtle Kay Comment on above: Right, 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 Plan of Treatment Date Care Activity Detail Author Start: 12-31-2029 Lipid panel Lipid Screening [facility] Start: 07-09-2029 Lipid panel Lipid Screening [facility] Start: 01-18-2029 Lipid panel Lipid Screening [facility] Start: 07-29-2028 Lipid 1996 panel - Serum or Plasma Lipid Screening [facility] Start: 04-14-2028 DTaP/Tdap/Td Vaccines (2 - Td or Tdap) DTaP/Tdap/Td Vaccines (2 - Td or Tdap) [facility] Start: 04-14-2028 Tetanus vaccination [facility] Start: 04-14-2028 Urine microalbumin profile [facility] Start: 04-07-2028 Colonoscopy COLONOSCOPY [facility] Start: 04-07-2028 Screening for malignant neoplasm of colon [facility] Start: 04-04-2028 Diabetes Screening Diabetes Screening [facility] Start: 11-01-2027 Lipid 1996 panel - Serum or Plasma Lipid Screening [facility] Start: 11-01-2027 LIPID SCREEN LIPID SCREEN [facility] Start: 09-19-2027 Diabetes Screening Diabetes Screening [facility] Start: 03-20-2027 Diabetes Screening Diabetes Screening [facility] Start: 03-06-2027 Screening for osteoporosis DEXA SCAN [facility] Start: 07-29-2026 Diabetes Screening Diabetes Screening [facility] Start: 06-15-2026 Lipid panel LIPIDS [facility] Start: 06-15-2026 Potassium [Moles/volume] in Serum or Plasma POTASSIUM [facility] Start: 06-15-2026 Urine screening for protein URINE MICROALBUMIN TEST [facility] Start: 05-15-2026 Glaucoma screening EYE EXAM [facility] Start: 04-21-2026 DIABETES SCREEN DIABETES SCREEN [facility] Start: 04-21-2026 Diabetes Screening Diabetes Screening [facility] Start: 03-26-2026 Diabetic foot examination DIABETIC FOOT EXAM [facility] Start: 03-13-2026 Glaucoma screening EYE EXAM [facility] Start: 03-06-2026 Screening for malignant neoplasm of breast [facility] Start: 02-14-2026 DIABETES SCREEN DIABETES SCREEN [facility] Start: 02-03-2026 Screening for malignant neoplasm of cervix [facility] Start: 12-31-2025 Diabetes mellitus screening Diabetes Screening [facility] Start: 12-31-2025 Diabetic foot examination DIABETIC FOOT EXAM [facility] Start: 12-31-2025 Lipid panel LIPIDS [facility] Start: 12-31-2025 Potassium [Moles/volume] in Serum or Plasma POTASSIUM [facility] Start: 12-31-2025 Urine screening for protein URINE MICROALBUMIN TEST [facility] Start: 12-16-2025 Hemoglobin A1c measurement HBA1C TEST [facility] Start: 11-22-2025 DIABETES SCREEN DIABETES SCREEN [facility] Start: 11-13-2025 Potassium [Moles/volume] in Serum or Plasma POTASSIUM [facility] Start: 11-13-2025 End: 11-13-2025 Patient encounter procedure 11/13/2025 1:30 PM EST Office Visit [facility] [address] [place] [address] Shi Son [address] [place] [address] [facility] Start: 11-12-2025 DIABETES SCREEN DIABETES SCREEN [facility] Start: 11-11-2025 DIABETES SCREEN DIABETES SCREEN [facility] Start: 11-07-2025 End: 11-07-2025 Patient encounter procedure 11/07/2025 9:30 AM EST Office Visit [facility] [address] [place] [address] Fernando Davison MD [address] [place] [address] [facility] Start: 11-06-2025 End: 11-06-2025 Patient encounter procedure [facility] Start: 11-05-2025 End: 11-05-2025 Patient encounter procedure [facility] Start: 11-02-2025 DIABETES SCREEN DIABETES SCREEN [facility] Start: 11-01-2025 DIABETES SCREEN DIABETES SCREEN [facility] Start: 11-01-2025 Diabetic foot examination DIABETIC FOOT EXAM [facility] Start: 10-30-2025 End: 10-30-2025 Patient encounter procedure [facility] Start: 10-15-2025 Potassium [Moles/volume] in Serum or Plasma POTASSIUM [facility] Start: 10-11-2025 End: 10-11-2025 Patient encounter procedure 10/11/2025 10:45 AM EST Office Visit [facility] [address] [place] [address] Katina William, LINTER OPERATOR-RESIDENTIAL CARE OFFICER [address] [place] [address] [facility] Start: 10-09-2025 Diabetic foot examination DIABETIC FOOT EXAM [facility] Start: 10-02-2025 Glaucoma screening [facility] Start: 09-19-2025 Potassium [Moles/volume] in Serum or Plasma POTASSIUM [facility] Start: 09-17-2025 End: 09-17-2025 Patient encounter procedure 09/17/2025 11:00 AM EST Office Visit [facility] [address] [address] Fernie Paredes DO [address] [facility] [address] [place] [address] [facility] Start: 09-13-2025 End: 09-13-2025 Patient encounter procedure 09/13/2025 9:45 AM EST Office Visit [facility] [address] [place] [address] Ciro Lyles MD [address] [place] [address] after cataract 6mths Ophthalmology Comment on above: after cataract 6mths Start: 09-11-2025 End: 09-11-2025 Patient encounter procedure [facility] Start: 08-09-2025 End: 08-09-2025 Patient encounter procedure 08/09/2025 9:45 AM EDT Office Visit [facility] [address] [place] [address] Katina William, LINTER OPERATOR-RESIDENTIAL CARE OFFICER [address] [place] [address] [facility] Start: 07-10-2025 Diabetic foot examination DIABETIC FOOT EXAM [facility] Start: 07-09-2025 Lipid panel LIPIDS [facility] Start: 07-09-2025 Potassium [Moles/volume] in Serum or Plasma POTASSIUM [facility] Start: 07-09-2025 Urine screening for protein URINE MICROALBUMIN TEST [facility] Start: 07-03-2025 Hemoglobin A1c measurement HBA1C TEST [facility] Start: 06-27-2025 End: 06-27-2025 Patient encounter procedure [facility] Start: 06-27-2025 End: 06-27-2025 Patient encounter procedure 06/27/2025 8:10 AM EDT Office Visit [facility] [address] [place] [address] Dawn Uriarte, SHAGGYM [address] [place] [address] [facility] Start: 06-24-2025 Influenza vaccination INFLUENZA VACCINE (#1) [facility] Start: 06-20-2025 End: 06-20-2025 Patient encounter procedure [facility] Start: 06-17-2025 End: 06-17-2025 Patient encounter procedure 06/17/2025 5:00 PM EDT Appointment [facility] [address] [place] [address] Dawn Uriarte, SHAGGYM [address] [place] [address] [facility] Start: 06-13-2025 End: 06-13-2025 Patient encounter procedure [facility] Start: 06-07-2025 End: 06-07-2025 Patient encounter procedure [facility] Start: 05-30-2025 End: 05-30-2026 MR Foot - left WO contrast MRI FOOT LEFT WITHOUT CONTRAST Imaging Routine Skin ulcer of fourth toe of left foot, limited to breakdown of skin Expected: 05/30/2025, Expires: 05/30/2026 [facility] Comment on above: Expected: 05/30/2025, Expires: Start: 05-30-2025 End: 05-30-2025 Patient encounter procedure 05/30/2025 11:30 AM EDT Office Visit [facility] [address] [place] [address] Dawn Uriarte, SHAGGYM [address] [place] [address] [facility] Start: 05-22-2025 eGFR Diabetes eGFR Diabetes [facility] Start: 05-22-2025 Urine screening for protein eGFR Diabetes [facility] Start: 05-22-2025 End: 05-22-2025 Patient encounter procedure 05/22/2025 11:45 AM EDT Office Visit [facility] [address] [place] [id number] Ciro Lyles MD [address] [place] [address] [facility] [address] [address] post op yag Ophthalmology Comment on above: post op yag Start: 05-20-2025 End: 05-21-2025 DRUG SCREEN MED COMPLIANCE I DRUG SCREEN MED COMPLIANCE I Lab Routine Encounter for medication monitoring Expected: 05/20/2025, Expires: 05/21/2025 [facility] Comment on above: Expected: 05/20/2025, Expires: 5 Start: 05-20-2025 End: 05-20-2026 MR Lumbar spine WO contrast MRI SPINE LUMBAR WITHOUT CONTRAST Imaging Routine Spinal stenosis, lumbar region, with neurogenic claudication Cluneal neuropathy Other low back pain Expected: 05/20/2025, Expires: 05/20/2026 [facility] Comment on above: Expected: 05/20/2025, Expires: 6 Start: 05-20-2025 End: 05-20-2025 Patient encounter procedure 05/20/2025 1:00 PM EDT Office Visit [facility] [address] [place] [address] Katina William, LINTER OPERATOR-RESIDENTIAL CARE OFFICER [address] [facility] [place] [address] [facility] Start: 05-16-2025 End: 05-16-2026 XR Toe fourth - left Views [facility] Comment on above: Expected: 05/16/2025, Expires: 1 Occurrences starti ng 05/16/2025 until 05/16/2025 Start: 05-16-2025 End: 05-16-2025 Patient encounter procedure 05/16/2025 1:00 PM EDT [facility] Podiatry [address] [place] [address] Dawn Uriarte, ANDREA [address] [place] [address] [facility] Start: 05-10-2025 End: 05-10-2026 Bacterial culture and sensitivity [facility] Comment on above: Expected: 05/10/2025, Expires: Start: 04-17-2025 Diabetic foot examination DIABETIC FOOT EXAM [facility] Start: 04-17-2025 Screening for malignant neoplasm of lung LUNG CANCER SCREENING [facility] Start: 04-15-2025 Hemoglobin A1c measurement [facility] Start: 04-02-2025 End: 04-02-2025 Patient encounter procedure 04/02/2025 1:30 PM EDT Office Visit [facility] [address] [place] [address] Crio Lyles MD [address] [place] [address] after cataract 6mths Ophthalmology Comment on above: after cataract 6mths Start: 03-26-2025 End: 03-26-2025 Patient encounter procedure [facility] Start: 03-26-2025 End: 03-26-2026 Complete blood count with white cell differential, automated CBC, EDIF, PLATELET Lab Routine Type 2 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 disease, without long-term current use of insulin Idiopathic chronic gout without tophus, unspecified site Iron deficiency anemia, unspecified iron deficiency anemia type PVC's (premature ventricular contractions) Hyperthyroidism Essential hypertension Expected: 03/26/2025, Expires: 03/26/2026 [facility] Comment on above: Expected: 03/26/2025, Expires: Start: 03-26-2025 End: 03-26-2026 Comprehensive metabolic 2000 panel - Serum or Plasma COMPREHENSIVE METABOLIC PANEL Lab Routine Type 2 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 disease, without long-term current use of insulin Idiopathic chronic gout without tophus, unspecified site PVC's (premature ventricular contractions) Hyperthyroidism Essential hypertension Expected: 03/26/2025, Expires: 03/26/2026 [facility] Comment on above: Expected: 03/26/2025, Expires: Start: 03-26-2025 End: 03-26-2026 Cyanocobalamin vitamin b-12 VITAMIN B12 Lab Routine Iron deficiency anemia, unspecified iron deficiency anemia type Expected: 03/26/2025, Expires: 03/26/2026 [facility] Comment on above: Expected: 03/26/2025, Expires: Start: 03-26-2025 End: 03-26-2026 Ferritin [Mass/volume] in Serum or Plasma FERRITIN Lab Routine Iron deficiency anemia, unspecified iron deficiency anemia type Expected: 03/26/2025, Expires: 03/26/2026 [facility] Comment on above: Expected: 03/26/2025, Expires: Start: 03-26-2025 End: 03-26-2026 Folate [Mass/volume] in Serum or Plasma FOLATE, SERUM Lab Routine Iron deficiency anemia, unspecified iron deficiency anemia type Expected: 03/26/2025, Expires: 03/26/2026 [facility] Comment on above: Expected: 03/26/2025, Expires: Start: 03-26-2025 End: 03-26-2026 Hemoglobin A1c/Hemoglobin.total in Blood HEMOGLOBIN A1C Lab Routine Type 2 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 disease, without long-term current use of insulin Expected: 03/26/2025, Expires: 03/26/2026 [facility] Comment on above: Expected: 03/26/2025, Expires: Start: 03-26-2025 End: 03-26-2026 IRON/IRON BINDING/TRANSFERRIN IRON/IRON BINDING/TRANSFERRIN Lab Routine Iron deficiency anemia, unspecified iron deficiency anemia type Expected: 03/26/2025, Expires: 03/26/2026 [facility] Comment on above: Expected: 03/26/2025, Expires: Start: 03-26-2025 End: 03-26-2026 LIPID PANEL W CALCULATED LDL LIPID PANEL W CALCULATED LDL Lab Routine Type 2 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 disease, without long-term current use of insulin Idiopathic chronic gout without tophus, unspecified site PVC's (premature ventricular contractions) Hyperthyroidism Essential hypertension Expected: 03/26/2025, Expires: 03/26/2026 [facility] Comment on above: Expected: 03/26/2025, Expires: Start: 03-26-2025 End: 03-26-2026 Magnesium [Mass/volume] in Serum or Plasma MAGNESIUM Lab Routine Type 2 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 disease, without long-term current use of insulin PVC's (premature ventricular contractions) Essential hypertension Expected: 03/26/2025, Expires: 03/26/2026 [facility] Comment on above: Expected: 03/26/2025, Expires: Start: 03-26-2025 End: 03-26-2026 MICROALBUMIN/CREATININE RATIO MICROALBUMIN/CREATININE RATIO Fluids Routine Type 2 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 disease, without long-term current use of insulin Expected: 03/26/2025, Expires: 03/26/2026 [facility] Comment on above: Expected: 03/26/2025, Expires: Start: 03-26-2025 End: 03-26-2026 PTH INTACT PTH INTACT Lab Routine Type 2 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 disease, without long-term current use of insulin Expected: 03/26/2025, Expires: 03/26/2026 [facility] Comment on above: Expected: 03/26/2025, Expires: Start: 03-26-2025 End: 03-26-2026 Thyrotropin [Units/volume] in Serum or Plasma TSH Lab Routine Type 2 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 disease, without long-term current use of insulin Idiopathic chronic gout without tophus, unspecified site PVC's (premature ventricular contractions) Hyperthyroidism Essential hypertension Expected: 03/26/2025, Expires: 03/26/2026 [facility] Comment on above: Expected: 03/26/2025, Expires: Start: 03-26-2025 End: 03-26-2026 Thyroxine (T4) free [Mass/volume] in Serum or Plasma T4 FREE Lab Routine Hyperthyroidism Expected: 03/26/2025, Expires: 03/26/2026 [facility] Comment on above: Expected: 03/26/2025, Expires: Start: 03-26-2025 End: 03-26-2026 Urate [Mass/volume] in Serum or Plasma URIC ACID Lab Routine Type 2 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 disease, without long-term current use of insulin Idiopathic chronic gout without tophus, unspecified site PVC's (premature ventricular contractions) Essential hypertension Expected: 03/26/2025, Expires: 03/26/2026 [facility] Comment on above: Expected: 03/26/2025, Expires: Start: 03-26-2025 End: 03-26-2026 URINE PROTEIN/CREA RATIO, RANDOM URINE PROTEIN/CREA RATIO, RANDOM Fluids Routine Type 2 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 disease, without long-term current use of insulin Expected: 03/26/2025, Expires: 03/26/2026 [facility] Comment on above: Expected: 03/26/2025, Expires: Start: 03-26-2025 End: 03-26-2026 VITAMIN D (25-HYDROXY,TOTAL) VITAMIN D (25-HYDROXY,TOTAL) Lab Routine Type 2 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 disease, without long-term current use of insulin Expected: 03/26/2025, Expires: 03/26/2026 [facility] Comment on above: Expected: 03/26/2025, Expires: Start: 03-20-2025 Potassium [Moles/volume] in Serum or Plasma POTASSIUM [facility] Start: 03-06-2025 End: 03-06-2025 Patient encounter procedure [facility] Start: 03-04-2025 End: 03-04-2025 Patient encounter procedure 03/04/2025 10:30 AM EDT Office Visit [facility] [address] [place] [address] Delilah Calderon, [address] [place] [address] [facility] Start: 03-01-2025 Screening for osteoporosis DEXA SCAN [facility] Start: 02-22-2025 End: 02-22-2025 Patient encounter procedure 02/22/2025 11:00 AM EDT Office Visit [facility] [address] [place] [address] Keshawn Nunez MD [address] [place] [phone] [facility] Start: 02-08-2025 End: 02-08-2025 Patient encounter procedure 02/08/2025 2:20 PM EDT Office Visit [facility] [address] [place] [phone] 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, LINTER OPERATOR-RESIDENTIAL CARE OFFICER [id number] [place] [address] [facility] Start: 02-03-2025 Screening for malignant neoplasm of cervix PAP SMEAR [facility] Start: 01-22-2025 Diabetic foot examination DIABETIC FOOT EXAM [facility] Start: 01-22-2025 Screening for malignant neoplasm of breast [facility] Start: 01-22-2025 Screening for malignant neoplasm of lung LUNG CANCER SCREENING [facility] Start: 01-18-2025 Lipid panel LIPIDS [facility] Start: 01-18-2025 Potassium [Moles/volume] in Serum or Plasma POTASSIUM [facility] Start: 01-18-2025 Urine screening for protein [facility] Start: 01-14-2025 End: 01-14-2025 Patient encounter procedure 01/14/2025 7:00 AM EDT Appointment [facility] [address] [place] [phone] Rhonda Porter, Delilah Misbah, DO [address] [place] [address] [facility] Start: 01-13-2025 Glaucoma screening EYE EXAM [facility] Start: 01-06-2025 Hemoglobin A1c measurement HBA1C TEST [facility] Start: 12-31-2024 End: 12-31-2024 Patient encounter procedure 12/31/2024 3:00 PM EDT Office Visit [facility] [address] [phone] Fernie Paredes, 600 [facility] [address] [place] [address] [facility] Start: 12-31-2024 End: 12-31-2025 DXA Skeletal system.axial Views for bone density BONE DENSITY AXIAL (HIP, PELVIS, SPINE) Imaging Routine Asymptomatic postmenopausal state Expected: 12/31/2024, Expires: 12/31/2025 [facility] Comment on above: Expected: 12/31/2024, Expires: Start: 12-31-2024 End: 12-31-2025 MG Breast - bilateral Screening MAMMO SCREENING WITH ALEXANDER BILATERAL Imaging Routine Encounter for screening mammogram for breast cancer Expected: 12/31/2024, Expires: 12/31/2025 [facility] Comment on above: Expected: 12/31/2024, Expires: Start: 12-31-2024 End: 12-31-2025 US.doppler Carotid arteries - bilateral VASC DUPLEX CAROTID BILATERAL Imaging Routine Bilateral carotid artery stenosis-30% Right, 60% Left Expected: 12/31/2024, Expires: 12/31/2025 [facility] Comment on above: Expected: 12/31/2024, Expires: Start: 12-30-2024 DIABETES SCREEN DIABETES SCREEN [facility] Start: 12-26-2024 End: 12-26-2024 Patient encounter procedure 12/26/2024 11:00 AM EST Office Visit [facility] [address] [place] [address] SaikennEmilyaram Mcgill [address] [place] [address] [facility] Start: 12-05-2024 End: 12-05-2024 Patient encounter procedure 12/05/2024 2:30 PM EST Office Visit [facility] [address] [place] [address] Huy Shi M [address] [place] [address] [facility] Start: 11-29-2024 End: 11-29-2024 ambulatory [facility] Start: 11-29-2024 End: 11-29-2024 Patient encounter procedure 11/29/2024 1:00 PM EST Appointment [facility] [address] [place] [address] Delilah Ellis Jr., DO [address] [place] [address] [facility] Start: 11-12-2024 End: 11-12-2024 Admission to same day surgery center [facility] Comment on above: ARTHROPLASTY KNEE TOTAL Start: 11-12-2024 End: 11-12-2024 Arthrp kne condyle&platu medial&lat compartments [facility] Start: 11-12-2024 Subsequent hospital visit by physician [facility] Comment on above: Osteoarthritis of left knee, unspecified osteoarthritis type Start: 11-01-2024 End: 11-01-2024 Patient encounter procedure 11/01/2024 2:30 PM EST Office Visit [facility] [address] [place] [address] Fernie Paredes DO [address] [place] [address] [facility] Start: 10-31-2024 End: 10-31-2025 Complete blood count with white cell differential, automated CBC, EDIF, PLATELET Lab Routine Chronic kidney disease, stage II (mild) Expected: 10/31/2024, Expires: 10/31/2025 [facility] Comment on above: Expected: 10/31/2024, Expires: Start: 10-31-2024 Diabetic foot examination DIABETIC FOOT EXAM [facility] Start: 10-31-2024 End: 10-31-2025 Magnesium [Mass/volume] in Serum or Plasma MAGNESIUM Lab Routine Chronic kidney disease, stage II (mild) Expected: 10/31/2024, Expires: 10/31/2025 [facility] Comment on above: Expected: 10/31/2024, Expires: Start: 10-31-2024 End: 10-31-2025 MICROALBUMIN/CREATININE RATIO MICROALBUMIN/CREATININE RATIO Fluids Routine Chronic kidney disease, stage II (mild) Expected: 10/31/2024, Expires: 10/31/2025 [facility] Comment on above: Expected: 10/31/2024, Expires: Start: 10-31-2024 End: 10-31-2025 PTH INTACT PTH INTACT Lab Routine Chronic kidney disease, stage II (mild) Expected: 10/31/2024, Expires: 10/31/2025 [facility] Comment on above: Expected: 10/31/2024, Expires: Start: 10-31-2024 End: 10-31-2025 RENAL FUNCTION PANEL RENAL FUNCTION PANEL Lab Routine Chronic kidney disease, stage II (mild) Expected: 10/31/2024, Expires: 10/31/2025 [facility] Comment on above: Expected: 10/31/2024, Expires: Start: 10-31-2024 Screening for malignant neoplasm of lung LUNG CANCER SCREENING [facility] Start: 10-31-2024 End: 10-31-2025 Sodium [Moles/volume] in Urine SODIUM, RANDOM URINE Fluids Routine Chronic kidney disease, stage II (mild) Expected: 10/31/2024, Expires: 10/31/2025 [facility] Comment on above: Expected: 10/31/2024, Expires: Start: 10-31-2024 End: 10-31-2025 Urinalysis, reagent strip without microscopy URINALYSIS, MACRO Fluids Routine Chronic kidney disease, stage II (mild) Expected: 10/31/2024, Expires: 10/31/2025 [facility] Comment on above: Expected: 10/31/2024, Expires: Start: 10-31-2024 End: 10-31-2025 URINE PROTEIN/CREA RATIO, RANDOM URINE PROTEIN/CREA RATIO, RANDOM Fluids Routine Chronic kidney disease, stage II (mild) Expected: 10/31/2024, Expires: 10/31/2025 [facility] Comment on above: Expected: 10/31/2024, Expires: Start: 10-31-2024 End: 10-31-2024 Patient encounter procedure [facility] 2 Start: 10-29-2024 End: 10-29-2025 Basic metabolic 2000 panel - Serum or Plasma Basic metabolic panel Lab Routine Atrial fibrillation, unspecified type (HCC) Expected: 10/29/2024, Expires: 10/29/2025 [facility] Work Phone: Comment on above: Expected: 10/29/2024, Expires: Start: 10-29-2024 End: 10-29-2025 Complete blood count with white cell differential, manual CBC and Differential Lab Routine Atrial fibrillation, unspecified type (HCC) Expected: 10/29/2024 (Approximate), Expires: 10/29/2025 [facility] Comment on above: Expected: 10/29/2024 (Approximate), Expi res: 10/29/2025 Start: 10-24-2024 Advance Directive Discussion Advance Directive Discussion [facility] Start: 10-23-2024 End: 10-23-2024 Patient encounter procedure 10/23/2024 8:00 AM EST Office Visit [facility] [address] [place] [address] Rhonda Porter, Delilah Crawley DO [address] [place] [address] [facility] Start: 10-22-2024 Potassium [Moles/volume] in Serum or Plasma POTASSIUM [facility] Start: 10-19-2024 End: 10-19-2024 Patient encounter procedure 10/19/2024 11:00 AM EST Office Visit [facility] [address] [phone] Fernie Paredes DO 600 [facility] [address] [place] [address] [facility] Start: 10-15-2024 End: 10-15-[address] [facility] Pre Admission Comment on above: Preop testing (Primary Dx); Alteration in blood glucose level; Pain in other specified joint Start: 10-09-2024 End: 10-09-2025 Complete blood count with white cell differential, automated CBC, EDIF, PLATELET Lab Routine Type 2 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 disease, without long-term current use of insulin Stage 3a chronic kidney disease Hyperlipidemia LDL goal <70 Hyperthyroidism Hypomagnesemia Iron deficiency anemia, unspecified iron deficiency anemia type Idiopathic chronic gout without tophus, unspecified site Expected: 10/09/2024, Expires: 10/09/2025 [facility] Comment on above: Expected: 10/09/2024, Expires: Start: 10-09-2024 End: 10-09-2025 Comprehensive metabolic 2000 panel - Serum or Plasma COMPREHENSIVE METABOLIC PANEL Lab Routine Type 2 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 disease, without long-term current use of insulin Stage 3a chronic kidney disease Hyperlipidemia LDL goal <70 Hyperthyroidism Hypomagnesemia Idiopathic chronic gout without tophus, unspecified site Expected: 10/09/2024, Expires: 10/09/2025 [facility] Comment on above: Expected: 10/09/2024, Expires: Start: 10-09-2024 End: 10-09-2025 Cyanocobalamin vitamin b-12 VITAMIN B12 Lab Routine Iron deficiency anemia, unspecified iron deficiency anemia type Expected: 10/09/2024, Expires: 10/09/2025 [facility] Comment on above: Expected: 10/09/2024, Expires: Start: 10-09-2024 End: 10-09-2025 Ferritin [Mass/volume] in Serum or Plasma FERRITIN Lab Routine Iron deficiency anemia, unspecified iron deficiency anemia type Expected: 10/09/2024, Expires: 10/09/2025 [facility] Comment on above: Expected: 10/09/2024, Expires: Start: 10-09-2024 End: 10-09-2025 Folate [Mass/volume] in Serum or Plasma FOLATE, SERUM Lab Routine Iron deficiency anemia, unspecified iron deficiency anemia type Expected: 10/09/2024, Expires: 10/09/2025 [facility] Comment on above: Expected: 10/09/2024, Expires: Start: 10-09-2024 End: 10-09-2025 Hemoglobin A1c/Hemoglobin.total in Blood HEMOGLOBIN A1C Lab Routine Type 2 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 disease, without long-term current use of insulin Expected: 10/09/2024, Expires: 10/09/2025 [facility] Comment on above: Expected: 10/09/2024, Expires: Start: 10-09-2024 End: 10-09-2025 IRON/IRON BINDING/TRANSFERRIN IRON/IRON BINDING/TRANSFERRIN Lab Routine Iron deficiency anemia, unspecified iron deficiency anemia type Expected: 10/09/2024, Expires: 10/09/2025 [facility] Comment on above: Expected: 10/09/2024, Expires: Start: 10-09-2024 End: 10-09-2025 LIPID PANEL W CALCULATED LDL LIPID PANEL W CALCULATED LDL Lab Routine Type 2 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 disease, without long-term current use of insulin Stage 3a chronic kidney disease Hyperlipidemia LDL goal <70 Hyperthyroidism Hypomagnesemia Idiopathic chronic gout without tophus, unspecified site Expected: 10/09/2024, Expires: 10/09/2025 [facility] Comment on above: Expected: 10/09/2024, Expires: Start: 10-09-2024 End: 10-09-2025 Magnesium [Mass/volume] in Serum or Plasma MAGNESIUM Lab Routine Type 2 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 disease, without long-term current use of insulin Stage 3a chronic kidney disease Hypomagnesemia Expected: 10/09/2024, Expires: 10/09/2025 [facility] Comment on above: Expected: 10/09/2024, Expires: Start: 10-09-2024 End: 10-09-2025 MICROALBUMIN/CREATININE RATIO MICROALBUMIN/CREATININE RATIO Fluids Routine Type 2 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 disease, without long-term current use of insulin Expected: 10/09/2024, Expires: 10/09/2025 [facility] Comment on above: Expected: 10/09/2024, Expires: Start: 10-09-2024 End: 10-09-2024 Patient encounter procedure 10/09/2024 2:00 PM EST Office Visit [facility] [address] [phone] Fernie Paredes DO [address] [phone] [facility] Start: 10-09-2024 End: 10-09-2025 PTH INTACT PTH INTACT Lab Routine Type 2 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 disease, without long-term current use of insulin Stage 3a chronic kidney disease Expected: 10/09/2024, Expires: 10/09/2025 [facility] Comment on above: Expected: 10/09/2024, Expires: Start: 10-09-2024 End: 10-09-2025 Thyrotropin [Units/volume] in Serum or Plasma TSH Lab Routine Type 2 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 disease, without long-term current use of insulin Stage 3a chronic kidney disease Hyperlipidemia LDL goal <70 Hyperthyroidism Hypomagnesemia Idiopathic chronic gout without tophus, unspecified site Expected: 10/09/2024, Expires: 10/09/2025 [facility] Comment on above: Expected: 10/09/2024, Expires: Start: 10-09-2024 End: 10-09-2025 Thyroxine (T4) free [Mass/volume] in Serum or Plasma T4 FREE Lab Routine Hyperthyroidism Expected: 10/09/2024, Expires: 10/09/2025 [facility] Comment on above: Expected: 10/09/2024, Expires: Start: 10-09-2024 End: 10-09-2025 Urate [Mass/volume] in Serum or Plasma URIC ACID Lab Routine Type 2 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 disease, without long-term current use of insulin Stage 3a chronic kidney disease Idiopathic chronic gout without tophus, unspecified site Expected: 10/09/2024, Expires: 10/09/2025 [facility] Comment on above: Expected: 10/09/2024, Expires: Start: 10-09-2024 End: 10-09-2025 URINE PROTEIN/CREA RATIO, RANDOM URINE PROTEIN/CREA RATIO, RANDOM Fluids Routine Type 2 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 disease, without long-term current use of insulin Expected: 10/09/2024, Expires: 10/09/2025 [facility] Comment on above: Expected: 10/09/2024, Expires: Start: 10-09-2024 End: 10-09-2025 VITAMIN D (25-HYDROXY,TOTAL) VITAMIN D (25-HYDROXY,TOTAL) Lab Routine Type 2 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 disease, without long-term current use of insulin Stage 3a chronic kidney disease Vitamin D deficiency Expected: 10/09/2024, Expires: 10/09/2025 [facility] Comment on above: Expected: 10/09/2024, Expires: Start: 10-02-2024 End: 10-02-2024 Patient encounter procedure 10/02/2024 3:00 PM EST Office [place] [address] Ciro Lyles MD [address] [place] [address] Sec. Cat/possible yag return in 6 months Ophthalmology Comment on above: Sec. Cat/possible yag return in 6 months Start: 09-21-2024 Influenza vaccination INFLUENZA VACCINE (#1) [facility] stem Comment on above: Postponed from 06/24/2024 (patient prefe desi) Start: 09-21-2024 Potassium [Moles/volume] in Serum or Plasma POTASSIUM [facility] Start: 09-19-2024 End: 09-19-2024 Patient encounter procedure 09/19/2024 11:20 AM EST Office Visit Division of Hematology & Oncology at [facility] [address] [place] [phone] Naty Bhakta MD [address] [place] [address] Division of Hematology & Oncology at [facility] Start: 08-30-2024 End: 08-30-2024 Patient encounter procedure 08/30/2024 2:40 PM EST Office Visit [facility] [address] [place] [address] Gonsalo Blackwood MD [address] [place] [address] [facility] Start: 08-17-2024 End: 08-17-2024 Patient encounter procedure 08/17/2024 11:00 AM EDT Office Visit [facility] [address] [phone] [facility] Start: 08-08-2024 Diabetic foot examination DIABETIC FOOT EXAM [facility] Start: 08-08-2024 Glaucoma screening [facility] Start: 08-08-2024 PNEUMOCOCCAL (3 - PPSV23 if available, else PCV20) PNEUMOCOCCAL (3 - PPSV23 if available, else PCV20) [facility] Start: 08-08-2024 Pneumococcal vaccination PNEUMOCOCCAL VACCINE SERIES (3 - PPSV23 if available, else PCV20) [facility] Start: 08-08-2024 PNEUMOCOCCAL VACCINE SERIES (3 - PPSV23 if available, else PCV20) PNEUMOCOCCAL VACCINE SERIES (3 - PPSV23 if available, else PCV20) [facility] Start: 08-08-2024 PNEUMOCOCCAL VACCINE SERIES (3 - PPSV23 or PCV20) PNEUMOCOCCAL VACCINE SERIES (3 - PPSV23 or PCV20) [facility] Start: 08-08-2024 PNEUMOCOCCAL VACCINE SERIES (3 of 4 - PPSV23) PNEUMOCOCCAL VACCINE SERIES (3 of 4 - PPSV23) [facility] Start: 08-08-2024 Pneumococcal Vaccine: 65+ (3 - PPSV23 or PCV20) Pneumococcal Vaccine: 65+ (3 - PPSV23 or PCV20) [facility] Start: 08-08-2024 PNEUMOCOCCAL: 65+ (3 - PPSV23 if available, else PCV20) PNEUMOCOCCAL: 65+ (3 - PPSV23 if available, else PCV20) [facility] Start: 08-08-2024 PNEUMOCOCCAL: 65+ (3 - PPSV23 or PCV20) PNEUMOCOCCAL: 65+ (3 - PPSV23 or PCV20) [facility] Start: 08-08-2024 Screening for malignant neoplasm of lung LUNG CANCER SCREENING [facility] Start: 08-04-2024 Potassium [Moles/volume] in Serum or Plasma POTASSIUM [facility] Start: 07-29-2024 Lipid panel LIPIDS [facility] Start: 07-29-2024 Potassium [Moles/volume] in Serum or Plasma POTASSIUM [facility] Start: 07-29-2024 Urine screening for protein URINE MICROALBUMIN TEST [facility] Start: 07-21-2024 Hemoglobin A1c measurement [facility] Start: 07-10-2024 End: 07-10-2024 Patient encounter procedure 07/10/2024 2:00 PM EDT Office Visit [facility] [address] [phone] Fernie Paredes DO 600 [facility] [address] [place] [address] [facility] Start: 06-29-2024 Potassium [Moles/volume] in Serum or Plasma POTASSIUM [facility] Start: 06-29-2024 Screening for malignant neoplasm of lung LUNG CANCER SCREENING [facility] Start: 06-29-2024 Urine screening for protein URINE MICROALBUMIN TEST [facility] Start: 06-24-2024 COVID-19 Vaccine () COVID-19 Vaccine () [facility] Start: 06-24-2024 Influenza vaccination INFLUENZA VACCINE (#1) [facility] stem Start: 05-31-2024 End: 05-31-2024 Patient encounter procedure 05/31/2024 9:00 AM EDT Appointment [facility] CT Scan [address] [place] [address] Kandice Christie MD [address] [place] [address] [facility] [address] Scan Start: 05-24-2024 End: 11-24-2024 CTA Pulmonary veins W contrast IV CT Pulmonary Vein With Reconstructions 3D Imaging Routine Atrial fibrillation, unspecified type (HCC) Expected: 05/24/2024, Expires: 11/24/2024 [facility] Work Phone: Comment on above: Expected: 05/24/2024, Expires: Start: 05-22-2024 End: 05-22-2024 Patient encounter procedure 05/22/2024 10:30 AM EDT Office Visit [facility] [address] [facility] [place] [phone] Aguilar Alexandra, JULISSA [address] [place] [address] [facility] Start: 05-13-2024 Diabetic foot examination DIABETIC FOOT EXAM [facility] Start: 05-13-2024 Screening for malignant neoplasm of lung LUNG CANCER SCREENING [facility] Start: 05-03-2024 End: 05-03-2024 Admission to same day surgery center [facility] Comment on above: ARTHRODESIS SACROILIAC JOINT MINIMALLY I NVASIVE W/ TRANSFIXING DEVICE Start: 05-03-2024 End: 05-03-2024 Arthrodesis sacroiliac joint percutaneous [facility] Start: 05-03-2024 End: 05-03-2024 Fluoroscopy up to 1 hour physician/qhp time [facility] Start: 05-03-2024 Subsequent hospital visit by physician [facility] Comment on above: Sacroiliitis Start: 04-21-2024 Potassium [Moles/volume] in Serum or Plasma POTASSIUM [facility] Start: 04-21-2024 Urine screening for protein URINE MICROALBUMIN TEST [facility] Start: 04-17-2024 End: 04-17-2025 Complete blood count with white cell differential, automated CBC, EDIF, PLATELET Lab Routine Type 2 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 disease, without long-term current use of insulin Hyperlipidemia LDL goal <70 Hyperthyroidism Hypomagnesemia Hypoproteinemia Idiopathic chronic gout without tophus, unspecified site Folate deficiency B12 deficiency Expected: 04/17/2024, Expires: 04/17/2025 [facility] Comment on above: Expected: 04/17/2024, Expires: Start: 04-17-2024 End: 04-17-2025 Comprehensive metabolic 2000 panel - Serum or Plasma COMPREHENSIVE METABOLIC PANEL Lab Routine Type 2 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 disease, without long-term current use of insulin Hyperlipidemia LDL goal <70 Hyperthyroidism Hypomagnesemia Hypoproteinemia Idiopathic chronic gout without tophus, unspecified site Expected: 04/17/2024, Expires: 04/17/2025 [facility] Comment on above: Expected: 04/17/2024, Expires: Start: 04-17-2024 End: 04-17-2025 Cyanocobalamin vitamin b-12 VITAMIN B12 Lab Routine Folate deficiency B12 deficiency History of anemia Expected: 04/17/2024, Expires: 04/17/2025 [facility] Comment on above: Expected: 04/17/2024, Expires: Start: 04-17-2024 End: 04-17-2025 Ferritin [Mass/volume] in Serum or Plasma FERRITIN Lab Routine History of anemia Expected: 04/17/2024, Expires: 04/17/2025 [facility] Comment on above: Expected: 04/17/2024, Expires: Start: 04-17-2024 End: 04-17-2025 Folate [Mass/volume] in Serum or Plasma FOLATE, SERUM Lab Routine Folate deficiency B12 deficiency History of anemia Expected: 04/17/2024, Expires: 04/17/2025 [facility] Comment on above: Expected: 04/17/2024, Expires: Start: 04-17-2024 End: 04-17-2025 Hemoglobin A1c/Hemoglobin.total in Blood HEMOGLOBIN A1C Lab Routine Type 2 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 disease, without long-term current use of insulin Expected: 04/17/2024, Expires: 04/17/2025 [facility] Comment on above: Expected: 04/17/2024, Expires: Start: 04-17-2024 End: 04-17-2025 IRON/IRON BINDING/TRANSFERRIN IRON/IRON BINDING/TRANSFERRIN Lab Routine History of anemia Expected: 04/17/2024, Expires: 04/17/2025 [facility] Comment on above: Expected: 04/17/2024, Expires: Start: 04-17-2024 End: 04-17-2025 LIPID PANEL W CALCULATED LDL LIPID PANEL W CALCULATED LDL Lab Routine Type 2 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 disease, without long-term current use of insulin Hyperlipidemia LDL goal <70 Hyperthyroidism Hypomagnesemia Hypoproteinemia Idiopathic chronic gout without tophus, unspecified site Expected: 04/17/2024, Expires: 04/17/2025 [facility] Comment on above: Expected: 04/17/2024, Expires: Start: 04-17-2024 End: 04-17-2025 Magnesium [Mass/volume] in Serum or Plasma MAGNESIUM Lab Routine Type 2 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 disease, without long-term current use of insulin Hypomagnesemia Expected: 04/17/2024, Expires: 04/17/2025 [facility] Comment on above: Expected: 04/17/2024, Expires: Start: 04-17-2024 End: 04-17-2025 MICROALBUMIN/CREATININE RATIO MICROALBUMIN/CREATININE RATIO Fluids Routine Type 2 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 disease, without long-term current use of insulin Expected: 04/17/2024, Expires: 04/17/2025 [facility] Comment on above: Expected: 04/17/2024, Expires: Start: 04-17-2024 End: 04-17-2025 PTH INTACT PTH INTACT Lab Routine Type 2 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 disease, without long-term current use of insulin Expected: 04/17/2024, Expires: 04/17/2025 [facility] Comment on above: Expected: 04/17/2024, Expires: Start: 04-17-2024 End: 04-17-2025 Thyrotropin [Units/volume] in Serum or Plasma TSH Lab Routine Type 2 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 disease, without long-term current use of insulin Hyperlipidemia LDL goal <70 Hyperthyroidism Hypomagnesemia Hypoproteinemia Idiopathic chronic gout without tophus, unspecified site Expected: 04/17/2024, Expires: 04/17/2025 [facility] Comment on above: Expected: 04/17/2024, Expires: Start: 04-17-2024 End: 04-17-2025 Urate [Mass/volume] in Serum or Plasma URIC ACID Lab Routine Type 2 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 disease, without long-term current use of insulin Idiopathic chronic gout without tophus, unspecified site Expected: 04/17/2024, Expires: 04/17/2025 [facility] Comment on above: Expected: 04/17/2024, Expires: Start: 04-17-2024 End: 04-17-2025 URINE PROTEIN/CREA RATIO, RANDOM URINE PROTEIN/CREA RATIO, RANDOM Fluids Routine Type 2 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 disease, without long-term current use of insulin Expected: 04/17/2024, Expires: 04/17/2025 [facility] Comment on above: Expected: 04/17/2024, Expires: Start: 04-17-2024 End: 04-17-2025 VITAMIN D (25-HYDROXY,TOTAL) VITAMIN D (25-HYDROXY,TOTAL) Lab Routine Type 2 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 disease, without long-term current use of insulin Vitamin D deficiency Expected: 04/17/2024, Expires: 04/17/2025 [facility] Comment on above: Expected: 04/17/2024, Expires: Start: 04-17-2024 End: 04-17-2024 Patient encounter procedure 04/17/2024 1:00 PM EDT Office Visit [facility] 600 [facility] [address] [place] [address] Fernie Paredes DO 600 [facility] [address] [place] [address] [facility] Start: 04-17-2024 End: 04-17-2024 Admission to establishment 04/17/2024 11:00 AM EDT Pre-Operative Nurse Assessment [facility] [address] [place] [phone] [facility] Start: 04-04-2024 End: 04-04-2024 Patient encounter procedure 04/04/2024 2:00 PM EDT Office Visit [facility] [address] [place] [address] Aviva Mera, RESIDENTIAL CARE OFFICER [address] [place] [address] [facility] Start: 04-03-2024 End: 04-03-2024 Patient encounter procedure 04/03/2024 1:00 PM EDT Office Visit [facility] 600 [facility] JOHSUA [address] [place] [address] Aviva Mera, RESIDENTIAL CARE OFFICER [address] [place] [address] [facility] Start: 03-12-2024 End: 03-12-2025 CBC,PLATELETS CBC,PLATELETS Lab Routine Abnormal thyroid stimulating hormone (TSH) level Hyperthyroidism Expected: 03/12/2024, Expires: 03/12/2025 [facility] Comment on above: Expected: 03/12/2024, Expires: Start: 03-12-2024 End: 03-12-2025 Comprehensive metabolic 2000 panel - Serum or Plasma COMPREHENSIVE METABOLIC PANEL Lab Routine Abnormal thyroid stimulating hormone (TSH) level Hyperthyroidism Expected: 03/12/2024, Expires: 03/12/2025 [facility] Comment on above: Expected: 03/12/2024, Expires: Start: 03-12-2024 End: 03-12-2025 THYROGLOBULIN ANTIBODY THYROGLOBULIN ANTIBODY Lab Routine Abnormal thyroid stimulating hormone (TSH) level Hyperthyroidism Expected: 03/12/2024, Expires: 03/12/2025 [facility] Comment on above: Expected: 03/12/2024, Expires: Start: 03-12-2024 End: 03-12-2025 THYROID PEROXIDASE ANTIBODIES THYROID PEROXIDASE ANTIBODIES Lab Routine Abnormal thyroid stimulating hormone (TSH) level Hyperthyroidism Expected: 03/12/2024, Expires: 03/12/2025 [facility] Comment on above: Expected: 03/12/2024, Expires: Start: 03-12-2024 End: 03-12-2025 THYROID-STIMULATING IMMUNOGLOBULIN THYROID-STIMULATING IMMUNOGLOBULIN Lab Routine Abnormal thyroid stimulating hormone (TSH) level Hyperthyroidism Expected: 03/12/2024 (Approximate), Expires: 03/12/2025 [facility] Comment on above: Expected: 03/12/2024 (Approximate), Expi res: 03/12/2025 Start: 03-12-2024 End: 03-12-2025 Thyrotropin [Units/volume] in Serum or Plasma TSH Lab Routine Abnormal thyroid stimulating hormone (TSH) level Hyperthyroidism Expected: 03/12/2024, Expires: 03/12/2025 [facility] Comment on above: Expected: 03/12/2024, Expires: Start: 03-12-2024 End: 03-12-2025 THYROTROPIN RECEPTOR ANTIBODY THYROTROPIN RECEPTOR ANTIBODY Lab Routine Abnormal thyroid stimulating hormone (TSH) level Hyperthyroidism Expected: 03/12/2024 (Approximate), Expires: 03/12/2025 [facility] Comment on above: Expected: 03/12/2024 (Approximate), Expi res: 03/12/2025 Start: 03-12-2024 End: 03-12-2025 Thyroxine (T4) free [Mass/volume] in Serum or Plasma T4 FREE Lab Routine Abnormal thyroid stimulating hormone (TSH) level Hyperthyroidism Expected: 03/12/2024, Expires: 03/12/2025 [facility] Comment on above: Expected: 03/12/2024, Expires: Start: 03-12-2024 End: 03-12-2025 Triiodothyronine (T3) Free [Mass/volume] in Serum or Plasma T3 FREE Lab Routine Abnormal thyroid stimulating hormone (TSH) level Hyperthyroidism Expected: 03/12/2024, Expires: 03/12/2025 [facility] Comment on above: Expected: 03/12/2024, Expires: Start: 03-12-2024 End: 03-12-2025 US Thyroid gland US THYROID Imaging Routine Abnormal thyroid stimulating hormone (TSH) level Dysphagia, unspecified type Hyperthyroidism Expected: 03/12/2024, Expires: 03/12/2025 [facility] Comment on above: Expected: 03/12/2024, Expires: Start: 03-09-2024 Glaucoma screening EYE EXAM [facility] Start: 03-01-2024 End: 03-01-2024 Patient encounter procedure 03/01/2024 11:00 AM EDT Office Visit [facility] [address] [place] [address] Delilah Calderon DO [address] [place] [address] [facility] Start: 02-15-2024 Lipid panel LIPIDS [facility] Start: 02-15-2024 Potassium [Moles/volume] in Serum or Plasma POTASSIUM [facility] Start: 02-15-2024 Screening for malignant neoplasm of lung LUNG CANCER SCREENING [facility] Start: 02-04-2024 Screening for malignant neoplasm of colon [facility] Start: 01-28-2024 Hemoglobin A1c measurement [facility] Start: 2024 End: 2024 Patient encounter procedure 2024 3:50 PM EDT Office Visit [facility] [address] [facility] [place] [address] Delilah Calderon DO [address] [place] [address] Chelsea Jenkins MD [address] [place] [address] [facility] Start: 01-23-2024 End: 01-23-2024 Patient encounter procedure 01/23/2024 1:00 PM EDT Office Visit [facility] 600 [facility] [address] [place] [address] Fernie Paredes DO 600 [facility] [address] [place] [address] [facility] Start: 01-16-2024 Hemoglobin A1c measurement HBA1C TEST [facility] Start: 01-08-2024 Mammography [facility] Start: 01-08-2024 Screening for malignant neoplasm of breast MAMMOGRAM [facility] Start: 01-06-2024 End: 01-06-2024 Patient encounter procedure [facility] Start: 11-24-2023 End: 11-24-2023 Admission to same day surgery center 11/24/2023 10:00 AM EST - 11/24/2023 11:00 AM EST Surgery [facility] [address] [place] [address] Kandice Christie MD [address] [place] [address] Left Atrial Appendage closure [facility] Comment on above: Left Atrial Appendage closure Start: 11-24-2023 Subsequent hospital visit by physician 11/24/2023 10:00 AM EST Hospital Encounter [facility] Procedural Care Unit [address] [place] [address] Kandice Christie MD [address] [place] [address] [facility] Start: 11-22-2023 Diabetic foot examination DIABETIC FOOT EXAM [facility] Start: 11-22-2023 Lipid panel LIPIDS [facility] Start: 11-22-2023 Potassium [Moles/volume] in Serum or Plasma POTASSIUM [facility] Start: 11-22-2023 Screening for malignant neoplasm of lung LUNG CANCER SCREENING [facility] Start: 11-22-2023 Urine screening for protein URINE MICROALBUMIN TEST [facility] Start: 11-17-2023 End: 11-17-2023 Patient encounter procedure 11/17/2023 10:00 AM EST Appointment [facility] CT Scan [address] [place] [address] Kandice Christie MD [address] [place] [address] [facility] [address] Scan Start: 11-05-2023 Glaucoma screening EYE EXAM [facility] Start: 11-02-2023 End: 11-02-2023 Patient encounter procedure 11/02/2023 10:30 AM EST Office Visit [facility] [address] [place] [address] Monse Shipley MD [address] [place] [address] [facility] Start: 10-31-2023 End: 10-31-2024 Complete blood count with white cell differential, automated CBC, EDIF, PLATELET Lab Routine Type 2 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 disease, without long-term current use of insulin B12 deficiency Hyperlipidemia LDL goal <70 Hypoproteinemia Hypomagnesemia Anemia, unspecified type Stage 3a chronic kidney disease Expected: 10/31/2023, Expires: 10/31/2024 [facility] Comment on above: Expected: 10/31/2023, Expires: Start: 10-31-2023 End: 10-31-2024 Comprehensive metabolic 2000 panel - Serum or Plasma COMPREHENSIVE METABOLIC PANEL Lab Routine Type 2 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 disease, without long-term current use of insulin Hyperlipidemia LDL goal <70 Hypoproteinemia Hypomagnesemia Stage 3a chronic kidney disease Expected: 10/31/2023, Expires: 10/31/2024 [facility] Comment on above: Expected: 10/31/2023, Expires: Start: 10-31-2023 End: 10-31-2024 Cyanocobalamin vitamin b-12 VITAMIN B12 Lab Routine B12 deficiency Anemia, unspecified type Expected: 10/31/2023, Expires: 10/31/2024 [facility] Comment on above: Expected: 10/31/2023, Expires: Start: 10-31-2023 End: 10-30-2024 Ferritin [Mass/volume] in Serum or Plasma FERRITIN Lab Routine Anemia, unspecified type Expected: 10/31/2023, Expires: 10/30/2024 [facility] Comment on above: Expected: 10/31/2023, Expires: Start: 10-31-2023 End: 10-31-2024 Folate [Mass/volume] in Serum or Plasma FOLATE, SERUM Lab Routine B12 deficiency Anemia, unspecified type Expected: 10/31/2023, Expires: 10/31/2024 [facility] Comment on above: Expected: 10/31/2023, Expires: Start: 10-31-2023 End: 10-31-2024 Hemoglobin A1c/Hemoglobin.total in Blood HEMOGLOBIN A1C Lab Routine Type 2 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 disease, without long-term current use of insulin Expected: 10/31/2023, Expires: 10/31/2024 [facility] Comment on above: Expected: 10/31/2023, Expires: Start: 10-31-2023 End: 10-31-2024 IRON/IRON BINDING/TRANSFERRIN IRON/IRON BINDING/TRANSFERRIN Lab Routine Anemia, unspecified type Expected: 10/31/2023, Expires: 10/31/2024 [facility] Comment on above: Expected: 10/31/2023, Expires: Start: 10-31-2023 End: 10-31-2024 LIPID PANEL W CALCULATED LDL LIPID PANEL W CALCULATED LDL Lab Routine Type 2 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 disease, without long-term current use of insulin Hyperlipidemia LDL goal <70 Hypoproteinemia Hypomagnesemia Stage 3a chronic kidney disease Expected: 10/31/2023, Expires: 10/31/2024 [facility] Comment on above: Expected: 10/31/2023, Expires: Start: 10-31-2023 End: 10-31-2024 Magnesium [Mass/volume] in Serum or Plasma MAGNESIUM Lab Routine Type 2 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 disease, without long-term current use of insulin Hypomagnesemia Stage 3a chronic kidney disease Expected: 10/31/2023, Expires: 10/31/2024 [facility] Comment on above: Expected: 10/31/2023, Expires: Start: 10-31-2023 End: 10-31-2024 MICROALBUMIN/CREATININE RATIO MICROALBUMIN/CREATININE RATIO Fluids Routine Type 2 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 disease, without long-term current use of insulin Stage 3a chronic kidney disease Expected: 10/31/2023, Expires: 10/31/2024 [facility] Comment on above: Expected: 10/31/2023, Expires: Start: 10-31-2023 End: 10-31-2024 PTH INTACT PTH INTACT Lab Routine Type 2 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 disease, without long-term current use of insulin Stage 3a chronic kidney disease Expected: 10/31/2023, Expires: 10/31/2024 [facility] Comment on above: Expected: 10/31/2023, Expires: Start: 10-31-2023 End: 10-31-2024 Thyrotropin [Units/volume] in Serum or Plasma TSH Lab Routine Type 2 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 disease, without long-term current use of insulin Hyperlipidemia LDL goal <70 Hypoproteinemia Hypomagnesemia Stage 3a chronic kidney disease Expected: 10/31/2023, Expires: 10/31/2024 [facility] Comment on above: Expected: 10/31/2023, Expires: Start: 10-31-2023 End: 10-31-2024 Urate [Mass/volume] in Serum or Plasma URIC ACID Lab Routine Type 2 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 disease, without long-term current use of insulin Stage 3a chronic kidney disease Expected: 10/31/2023, Expires: 10/31/2024 [facility] Comment on above: Expected: 10/31/2023, Expires: Start: 10-31-2023 End: 10-31-2024 URINE PROTEIN/CREA RATIO, RANDOM URINE PROTEIN/CREA RATIO, RANDOM Fluids Routine Type 2 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 disease, without long-term current use of insulin Stage 3a chronic kidney disease Expected: 10/31/2023, Expires: 10/31/2024 [facility] Comment on above: Expected: 10/31/2023, Expires: Start: 10-31-2023 End: 10-31-2024 VITAMIN D (25-HYDROXY,TOTAL) VITAMIN D (25-HYDROXY,TOTAL) Lab Routine Type 2 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 disease, without long-term current use of insulin Stage 3a chronic kidney disease Expected: 10/31/2023, Expires: 10/31/2024 [facility] Comment on above: Expected: 10/31/2023, Expires: Start: 10-31-2023 End: 10-31-2023 Patient encounter procedure [facility] Start: 10-26-2023 End: 10-26-2024 Complete blood count with white cell differential, automated CBC, EDIF, PLATELET Lab Routine Chronic kidney disease, stage II (mild) Expected: 10/26/2023, Expires: 10/26/2024 [facility] Comment on above: Expected: 10/26/2023, Expires: Start: 10-26-2023 End: 10-26-2024 Magnesium [Mass/volume] in Serum or Plasma MAGNESIUM Lab Routine Chronic kidney disease, stage II (mild) Expected: 10/26/2023, Expires: 10/26/2024 [facility] Comment on above: Expected: 10/26/2023, Expires: Start: 10-26-2023 End: 10-26-2023 Patient encounter procedure 10/26/2023 2:00 PM EST Office Visit [facility] 2 [address] [place] [address] Fernando Davison MD [address] [place] [address] [facility] 2 Start: 10-26-2023 End: 10-26-2024 RENAL FUNCTION PANEL RENAL FUNCTION PANEL Lab Routine Chronic kidney disease, stage II (mild) Expected: 10/26/2023, Expires: 10/26/2024 [facility] Comment on above: Expected: 10/26/2023, Expires: Start: 10-26-2023 End: 10-26-2024 Sodium [Moles/volume] in Urine SODIUM, RANDOM URINE Fluids Routine Chronic kidney disease, stage II (mild) Expected: 10/26/2023, Expires: 10/26/2024 [facility] Comment on above: Expected: 10/26/2023, Expires: Start: 10-26-2023 End: 10-26-2024 Urinalysis, reagent strip without microscopy URINALYSIS, MACRO Fluids Routine Chronic kidney disease, stage II (mild) Expected: 10/26/2023, Expires: 10/26/2024 [facility] Comment on above: Expected: 10/26/2023, Expires: Start: 10-26-2023 End: 10-26-2024 URINE PROTEIN/CREA RATIO, RANDOM URINE PROTEIN/CREA RATIO, RANDOM Fluids Routine Chronic kidney disease, stage II (mild) Expected: 10/26/2023, Expires: 10/26/2024 [facility] Comment on above: Expected: 10/26/2023, Expires: Start: 10-24-2023 Advance Directive Discussion Advance Directive Discussion [facility] Start: 10-21-2023 Hemoglobin A1c measurement HBA1C TEST [facility] Start: 10-19-2023 End: 10-19-2023 Patient encounter procedure 10/19/2023 10:30 AM EST Appointment Imaging at [facility] [address] [place] [id number] Naty Bhakta MD [address] [place] [phone] Imaging at [facility] Start: 10-06-2023 End: 10-06-2023 Patient encounter procedure 10/06/2023 1:20 PM EST Office Visit [facility] [address] [place] [address] Dawn Uriarte, DPM [address] [place] [address] [facility] Start: 10-05-2023 End: 10-05-2023 Patient encounter procedure 10/05/2023 1:00 PM EST Office Visit [facility] Medication Management [address] [phone] [facility] Medication [facility] Start: 09-29-2023 Potassium [Moles/volume] in Serum or Plasma POTASSIUM [facility] Start: 09-28-2023 End: 09-28-2023 Patient encounter procedure Division of Hematology & Oncology Start: 09-26-2023 End: 09-26-2023 Patient encounter procedure 09/26/2023 12:30 PM EST Office Visit [facility] [address] [facility] [place] [address] Garry Stephens MD [address] [facility] [place] [address] [place] [address] [facility] Start: 09-21-2023 End: 09-21-2023 Patient encounter procedure 09/21/2023 11:20 AM EST Office Visit Division of Hematology & Oncology at [facility] [address] 6th [place] [address] Naty Bhakta MD [address] 5th [place] [address] Division of Hematology & Oncology at [facility] Start: 09-20-2023 End: 09-20-2023 Patient encounter procedure 09/20/2023 1:00 PM EST Office Visit [facility] [address] [place] [address] Dawn Uriarte DPM [address] [place] [address] [facility] Start: 08-29-2023 End: 08-29-2023 Patient encounter procedure [facility] Start: 08-26-2023 ambulatory Ambulatory Facility:[facility] Start: 08-25-2023 ambulatory Ambulatory Facility:[facility] Start: 08-25-2023 End: 08-25-2023 Patient encounter procedure 08/25/2023 10:00 AM EDT Office Visit [facility] Infectious Disease [address] [phone] Monse Shipley MD [phone] [facility] Infectious Disease Start: 08-23-2023 End: 08-23-2023 Patient encounter procedure 08/23/2023 2:10 PM EDT Office Visit [facility] [address] [place] [address] Dawn Uriarte DPM [address] [place] [address] [facility] Start: 08-23-2023 Iv infusion therapy/prophylaxis /dx 1st to 1 hr THER/PROPH/DIAG IV INF [facility] Start: 08-22-2023 Iv infusion therapy/prophylaxis /dx 1st to 1 hr THER/PROPH/DIAG IV INF [facility] Start: 08-21-2023 Iv infusion therapy/prophylaxis /dx 1st to 1 hr THER/PROPH/DIAG IV INF [facility] Start: 08-20-2023 Glaucoma screening EYE EXAM [facility] Start: 08-20-2023 Screening for malignant neoplasm of lung LUNG CANCER SCREENING [facility] Start: 08-19-2023 Iv infusion therapy/prophylaxis /dx 1st to 1 hr THER/PROPH/DIAG IV INF [facility] Start: 08-18-2023 Iv infusion therapy/prophylaxis /dx 1st to 1 hr THER/PROPH/DIAG IV INF [facility] Start: 08-16-2023 Hemoglobin A1c measurement HBA1C TEST [facility] Start: 08-15-2023 End: 08-15-2023 Patient encounter procedure 08/15/2023 11:30 AM EDT Office Visit [facility] Infectious Disease [address] [place] [address] Monse Shipley MD [address] [place] [address] [facility] Infectious Disease Start: 08-15-2023 End: 08-15-2023 Patient encounter procedure 08/15/2023 10:15 AM EDT Office Visit [facility] Infectious Disease [address] [place] [address] Monse Shipley MD [address] [place] [address] [facility] Infectious Disease Start: 08-11-2023 End: 09-08-2023 Bacterial culture and sensitivity [facility] Comment on above: Expected: 08/11/2023, Expires: Start: 08-11-2023 Iv infusion therapy/prophylaxis /dx 1st to 1 hr THER/PROPH/DIAG IV INF [facility] Start: 08-11-2023 End: 08-11-2023 Patient encounter procedure 08/11/2023 1:10 PM EDT Office Visit [facility] [address] [address] aDwn Uriarte DPM [address] [place] [address] [facility] Start: 08-10-2023 End: 08-10-2023 Patient encounter procedure 08/10/2023 9:30 AM EDT Office Visit [facility] [address] [phone] Dawn Uriarte DPM [phone] [facility] Start: 08-09-2023 Iv infusion therapy/prophylaxis /dx 1st to 1 hr THER/PROPH/DIAG IV INF [facility] Start: 08-08-2023 End: 08-08-2023 Patient encounter procedure [facility] Start: 08-07-2023 Iv infusion therapy/prophylaxis /dx 1st to 1 hr THER/PROPH/DIAG IV INF [facility] Start: 08-07-2023 End: 08-07-[address] [facility] Start: 08-06-2023 End: 08-06-[address] [facility] Start: 08-05-2023 End: 08-05-[address] [facility] Start: 08-05-2023 Iv infusion therapy/prophylaxis /dx 1st to 1 hr THER/PROPH/DIAG IV INF [facility] Start: 08-05-2023 End: 08-05-2023 Patient encounter procedure 08/05/2023 11:15 AM EDT Office Visit [facility] Infectious Disease [address] [phone] Monse Shipley MD [phone] [facility] Infectious Disease Start: 08-04-2023 End: 08-04-[address] [facility] Start: 08-03-2023 End: 08-03-2023 Patient encounter procedure 08/03/2023 1:30 PM EDT Infusion Visit [facility] [address] [place], [place] [phone] [facility] Start: 08-02-2023 End: 08-02-2023 Patient encounter procedure 08/02/2023 11:30 AM EDT Infusion Visit [facility] [address] [place] [address] [facility] Start: 08-01-2023 End: 08-01-2023 Patient encounter procedure 08/01/2023 8:30 AM EDT Infusion [facility] [address] [facility] Start: 07-31-2023 End: 07-31-2023 Patient encounter procedure 07/31/2023 8:00 AM EDT Infusion Visit [facility] [address] [facility] Monse Shipley MD [address] [place] [address] [facility] Start: 07-30-2023 End: 07-30-2023 Patient encounter procedure 07/30/2023 8:15 AM EDT Infusion Visit [facility] [address] [facility] [place] [address] Monse Shipley MD [address] [place] [address] [facility] Start: 07-29-2023 End: 07-29-2024 C-reactive protein C REACTIVE PROTEIN Lab Routine Open wound of fourth toe of left foot, sequela Expected: 07/29/2023, Expires: 07/29/2024 [facility] Comment on above: Expected: 07/29/2023, Expires: Start: 07-29-2023 End: 07-29-2024 FUNGITELL ASSAY FUNGITELL ASSAY Lab Routine Open wound of fourth toe of left foot, sequela Expected: 07/29/2023, Expires: 07/29/2024 [facility] Comment on above: Expected: 07/29/2023, Expires: Start: 07-29-2023 End: 07-29-2024 Fungus identified in Unspecified specimen by Culture [facility] Comment on above: Expected: 07/29/2023, Expires: Start: 07-29-2023 End: 07-29-2024 M TUBERCULOSIS BY QUANTIFERON, BLD M TUBERCULOSIS BY QUANTIFERON, BLD Lab Routine Open wound of fourth toe of left foot, sequela Expected: 07/29/2023, Expires: 07/29/2024 [facility] Comment on above: Expected: 07/29/2023, Expires: Start: 07-29-2023 End: 07-29-2024 Mycobacterium sp identified in Unspecified specimen by Organism specific culture [facility] Comment on above: Expected: 07/29/2023, Expires: Start: 07-29-2023 End: 07-29-2024 SEDIMENTATION RATE, AUTOMATED SEDIMENTATION RATE, AUTOMATED Lab Routine Open wound of fourth toe of left foot, sequela Expected: 07/29/2023, Expires: 07/29/2024 [facility] Comment on above: Expected: 07/29/2023, Expires: Start: 07-29-2023 End: 07-29-2023 Patient encounter procedure [facility] Infectious Disease Start: 07-28-2023 End: 07-28-2024 MR Foot - left WO contrast MRI FOOT LEFT WITHOUT CONTRAST Imaging STAT Cellulitis and abscess of toe of left foot Skin ulcer of fourth toe of left foot with fat layer exposed Expected: 07/28/2023, Expires: 07/28/2024 [facility] Comment on above: Expected: 07/28/2023, Expires: Start: 07-28-2023 End: 07-28-2023 Patient encounter procedure 07/28/2023 10:00 AM EDT Office Visit [facility] [address] [place] [address] Dawn Uriarte DPM [address] [place] [address] [facility] Start: 07-27-2023 End: 07-27-2023 Patient encounter procedure 07/27/2023 8:00 AM EDT Office Visit [facility] Infectious Disease [address] [place] [address] Monse Shipley MD [address] [place] [address] [facility] Start: 07-22-2023 End: 07-22-2024 C-reactive protein C REACTIVE PROTEIN Lab Routine Cellulitis of other specified site Recurrent infections Expected: 07/22/2023, Expires: 07/22/2024 [facility] Comment on above: Expected: 07/22/2023, Expires: Start: 07-22-2023 End: 07-22-2024 Complete blood count with white cell differential, automated CBC, EDIF, PLATELET Lab Routine Cellulitis of other specified site Recurrent infections Expected: 07/22/2023, Expires: 07/22/2024 [facility] Comment on above: Expected: 07/22/2023, Expires: Start: 07-22-2023 End: 07-22-2024 Comprehensive metabolic 2000 panel - Serum or Plasma COMPREHENSIVE METABOLIC PANEL Lab Routine Cellulitis of other specified site Recurrent infections Expected: 07/22/2023, Expires: 07/22/2024 [facility] Comment on above: Expected: 07/22/2023, Expires: Start: 07-22-2023 End: 07-22-2024 M TUBERCULOSIS BY QUANTIFERON, BLD M TUBERCULOSIS BY QUANTIFERON, BLD Lab Routine Cellulitis of other specified site Recurrent infections Expected: 07/22/2023, Expires: 07/22/2024 [facility] Comment on above: Expected: 07/22/2023, Expires: Start: 07-22-2023 End: 07-22-2024 SEDIMENTATION RATE, AUTOMATED SEDIMENTATION RATE, AUTOMATED Lab Routine Cellulitis of other specified site Recurrent infections Expected: 07/22/2023, Expires: 07/22/2024 [facility] Comment on above: Expected: 07/22/2023, Expires: Start: 07-22-2023 End: 07-22-2023 Patient encounter procedure 07/22/2023 8:15 AM EDT Office Visit [facility] Infectious Disease [address] [place] [address] Monse Shipley MD [address] [place], [place] [phone] [facility] Infectious Disease Start: 07-21-2023 End: 08-18-2023 Bacterial culture and sensitivity [facility] Comment on above: Expected: 07/21/2023, Expires: 3 Start: 07-21-2023 End: 08-18-2023 XR Foot - left 3 Views XR FOOT LEFT 3 VIEWS Imaging Routine Cellulitis and abscess of toe of left foot Expected: 07/21/2023, Expires: 08/18/2023 [facility] Comment on above: Expected: 07/21/2023, Expires: 3 Start: 07-18-2023 AMANDA, Provider: Gregory Soto, Status: Pen, Time: 11:15 AM AMANDA, Provider: Gregory Soto, Status: Pen, Time: 11:15 AM [facility] Work Phone: Start: 07-18-2023 End: 07-18-2023 Patient encounter procedure 07/18/2023 10:10 AM EDT Office Visit [facility] [address] [place], [place] [phone] Dawn Uriarte DPM [address] [place], [place] [phone] [facility] Start: 07-18-2023 End: 07-18-2023 Patient encounter procedure 07/18/2023 8:45 AM EDT Office Visit [facility] Infectious Disease [address] [place], [place] [phone] Monse Shipley MD [address] [place], [place] [phone] [facility] Infectious Disease Start: 07-14-2023 [email or web address], Provider: Cuca Cervantes, Status: Pen, Time: 10:45 AM PTFUADULT4, Provider: Cuca Cervantes, Status: Pen, Time: 10:45 AM [facility] Work Phone: Start: 07-13-2023 End: 07-13-2024 C-reactive protein C REACTIVE PROTEIN Lab Routine Cellulitis of other specified site Expected: 07/13/2023, Expires: 07/13/2024 [facility] Comment on above: Expected: 07/13/2023, Expires: Start: 07-13-2023 End: 07-13-2024 Hemoglobin A1c/Hemoglobin.total in Blood HEMOGLOBIN A1C Lab Routine Cellulitis of other specified site Elevated glucose Expected: 07/13/2023, Expires: 07/13/2024 [facility] Comment on above: Expected: 07/13/2023, Expires: Start: 07-13-2023 End: 07-13-2024 SEDIMENTATION RATE, AUTOMATED SEDIMENTATION RATE, AUTOMATED Lab Routine Cellulitis of other specified site Expected: 07/13/2023, Expires: 07/13/2024 [facility] Comment on above: Expected: 07/13/2023, Expires: Start: 07-13-2023 End: 07-13-2023 Patient encounter procedure 07/13/2023 11:15 AM EDT Office Visit [facility] Infectious Disease [address] [place] [address] Monse Shipley MD [address] [place] [address] [facility] Disease Start: 07-12-2023 [email or web address], Provider: Cuca Cervantes, Status: Maximus, Time: 10:45 AM PTFUADULT4, Provider: Cuca Cervantes, Status: Maximus, Time: 10:45 AM [facility] Work [facility]: Start: 07-08-2023 End: 07-08-2023 Admission to same day surgery center 07/08/2023 10:00 AM EDT - 07/08/2023 10:40 AM EDT Surgery [facility] Periop [address] [place] [phone] Dawn Uriarte DPM [address] [phone] I&D BURSA FOOT - 4th toe [facility] Comment on above: I&D BURSA FOOT - 4th toe Start: 07-08-2023 Subsequent hospital visit by physician [facility] Comment on above: Abscess of fourth toe of left foot Start: 07-08-2023 End: 07-08-2023 I&d below fascia foot 1 bursal space [facility] Start: 07-07-2023 AQUATICFU4, Provider: Laya Gomez, Status: Pen, Time: 10:45 AM AQUATICFU4, Provider: Laya Gomez, Status: Pen, Time: 10:45 AM [facility] Work Phone: Start: 07-05-2023 AQUATICFU4, Provider: Laya Gomez, Status: Pen, Time: 11:30 AM AQUATICFU4, Provider: Laya Gomez, Status: Pen, Time: 11:30 AM [facility] Work Phone: Start: 07-04-2023 End: 07-04-2023 Patient encounter procedure 07/04/2023 9:45 AM EDT Office Visit [facility] Infectious Disease [address] [phone] Monse Shipley MD [phone] [facility] Infectious Disease Start: 07-04-2023 End: 07-04-2023 Admission to establishment 07/04/2023 9:00 AM EDT Pre-Operative Nurse Assessment [facility] Pre Admission [address] [place] [phone] [facility] Start: 07-01-2023 AQUATICFU4, Provider: Sheyla Dixon, Status: Pen, Time: 2:00 PM AQUATICFU4, Provider: Sheyla Dixon, Status: Pen, Time: 2:00 PM [facility] Work [facility]: Start: 06-30-2023 AQUATICFU4, Provider: Laya Gomez, Status: Pen, Time: 11:30 AM AQUATICFU4, Provider: Laya Gomez, Status: Maximus, Time: 11:30 AM [facility] Work Phone: Start: 06-29-2023 End: 06-29-2023 Patient encounter procedure [facility] Start: 06-28-2023 End: 07-28-2023 CBC,PLATELETS CBC,PLATELETS Lab Routine Cellulitis and abscess of toe of left foot Expected: 06/28/2023, Expires: 07/28/2023 [facility] Comment on above: Expected: 06/28/2023, Expires: Start: 06-28-2023 End: 07-28-2023 Comprehensive metabolic 2000 panel - Serum or Plasma COMPREHENSIVE METABOLIC PANEL Lab Routine Cellulitis and abscess of toe of left foot Expected: 06/28/2023, Expires: 07/28/2023 [facility] Comment on above: Expected: 06/28/2023, Expires: Start: 06-28-2023 End: 06-28-2024 MR Foot - left WO contrast MRI FOOT LEFT WITHOUT CONTRAST Imaging STAT Cellulitis and abscess of toe of left foot Expected: 06/28/2023 (Approximate), Expires: 06/28/2024 [facility] Comment on above: Expected: 06/28/2023 (Approximate), Expi res: 06/28/2024 Start: 06-28-2023 End: 06-28-2023 Patient encounter procedure 06/28/2023 2:00 PM EDT Office Visit [facility] [address] [place] [address] Dawn Uriarte, DPArtem [address] [place] [address] [facility] Start: 06-24-2023 Influenza vaccination [facility] Start: 06-21-2023 End: 06-21-2023 Patient encounter procedure 06/21/2023 8:00 AM EDT Office Visit [facility] [address] [facility] [place] [address] [place] [address] Garry Stephens MD [address] [facility] [place] [address] [place] [address] [facility] Start: 06-20-2023 End: 06-20-2023 Patient encounter procedure 06/20/2023 1:00 PM EDT Appointment [facility] MRI [address] [place] [address] Isreal Sigala MD [address] [place] [address] [place] [id number] [facility] MRI Start: 06-14-2023 End: 06-14-2023 Patient encounter procedure 06/14/2023 9:30 AM EDT Office Visit [facility] [address] [place] [address] Dawn Uriarte, DPM [address] [place] [address] [facility] Start: 05-26-2023 Diabetic foot examination DIABETIC FOOT EXAM [facility] Start: 05-26-2023 Lipid panel LIPIDS [facility] Start: 05-26-2023 LIPIDS LIPIDS [facility] Start: 05-26-2023 Microalbumin measurement, urine, quantitative URINE MICROALBUMIN TEST [facility] Start: 05-26-2023 Potassium [Moles/volume] in Serum or Plasma POTASSIUM [facility] Start: 05-26-2023 Screening for malignant neoplasm of lung LUNG CANCER SCREENING [facility] Start: 05-26-2023 Urine screening for protein URINE MICROALBUMIN TEST [facility] Start: 05-22-2023 Hemoglobin A1c measurement HBA1C TEST [facility] Start: 05-17-2023 End: 05-17-2023 Patient encounter procedure 05/17/2023 10:50 AM EDT Office Visit [facility] [address] [place] [address] Dawn Uriarte, DPM [address] [place] [address] [facility] Start: 05-16-2023 End: 05-16-2023 Admission to same day surgery center Dyan Muhammad Comment on above: ARTHROPLASTY KNEE TOTAL - Left ARTHROPLASTY KNEE TO MARGE Start: 05-16-2023 End: 05-16-2023 Arthrp kne condyle&platu medial&lat compartments ARTHROPLASTY KNEE TOTAL Primary osteoarthritis of left knee 05/16/2023 6:45 AM EDT [facility] Start: 05-16-2023 Subsequent hospital visit by physician Dyan Muhammad Comment on above: Primary osteoarthritis of left knee Start: 05-13-2023 End: 05-13-2023 Patient encounter procedure [facility] Start: 05-10-2023 End: 05-10-2023 Patient encounter procedure 05/10/2023 10:50 AM EDT Office Visit [facility] [address] [place] [address] Dawn Uriarte, DPM [address] [place] [address] [facility] Start: 05-05-2023 End: 05-05-2024 MR Foot - left WO contrast MRI FOOT LEFT WITHOUT CONTRAST Imaging Routine Cellulitis and abscess of toe of left foot Expected: 05/05/2023, Expires: 05/05/2024 [facility] Comment on above: Expected: 05/05/2023, Expires: Start: 05-05-2023 End: 05-05-2023 Patient encounter procedure 05/05/2023 1:00 PM EDT Office Visit [facility] [address] [place] [address] Dawn Uriarte, DPM [address] [place] [address] [facility] Start: 05-03-2023 End: 05-03-2023 Patient encounter procedure 05/03/2023 Office Visit Cardiovascular Medicine Delilah Calderon DO [address] [facility] [place] [address] [facility] Start: 04-29-2023 End: 04-29-2023 Patient encounter procedure 04/29/2023 4:20 PM EDT Office Visit [facility] Orthopedics [address] [facility] [place] [address] Gonsalo Blackwood MD [address] [facility] [place] [address] [facility] Start: 04-27-2023 End: 04-27-2023 Patient encounter procedure 04/27/2023 3:30 PM EDT Office Visit [facility] Nephrology 2 [address] [facility] [place] [address] Fernando Davison MD [address] [place] [address], [place] [address] [facility]phrology 2 Start: 04-27-2023 End: 04-27-2024 Complete blood count with white cell differential, automated CBC, EDIF, PLATELET Lab Routine Stage 3a chronic kidney disease Expected: 04/27/2023, Expires: 04/27/2024 [facility] Comment on above: Expected: 04/27/2023, Expires: 4 Start: 04-27-2023 End: 04-27-2024 Hepatic function 2000 panel - Serum or Plasma HEPATIC FUNCTION PANEL Lab Routine Stage 3a chronic kidney disease Expected: 04/27/2023, Expires: 04/27/2024 [facility] Comment on above: Expected: 04/27/2023, Expires: 4 Start: 04-27-2023 End: 04-27-2024 Magnesium [Mass/volume] in Serum or Plasma MAGNESIUM Lab Routine Stage 3a chronic kidney disease Expected: 04/27/2023, Expires: 04/27/2024 [facility] Comment on above: Expected: 04/27/2023, Expires: Start: 04-27-2023 End: 04-27-2024 RENAL FUNCTION PANEL RENAL FUNCTION PANEL Lab Routine Stage 3a chronic kidney disease Expected: 04/27/2023, Expires: 04/27/2024 [facility] Comment on above: Expected: 04/27/2023, Expires: Start: 04-27-2023 End: 04-27-2024 Sodium [Moles/volume] in Urine SODIUM, RANDOM URINE Fluids Routine Stage 3a chronic kidney disease Expected: 04/27/2023, Expires: 04/27/2024 [facility] Comment on above: Expected: 04/27/2023, Expires: Start: 04-27-2023 End: 04-27-2024 Urinalysis, reagent strip without microscopy URINALYSIS, MACRO Fluids Routine Stage 3a chronic kidney disease Expected: 04/27/2023, Expires: 04/27/2024 [facility] Comment on above: Expected: 04/27/2023, Expires: Start: 04-27-2023 End: 04-27-2024 URINE PROTEIN/CREA RATIO, RANDOM URINE PROTEIN/CREA RATIO, RANDOM Fluids Routine Stage 3a chronic kidney disease Expected: 04/27/2023, Expires: 04/27/2024 [facility] Comment on above: Expected: 04/27/2023, Expires: Start: 04-27-2023 End: 04-27-2024 US Abdomen RUQ US ABDOMEN RUQ/LIVER/GB Imaging Routine Stage 3a chronic kidney disease Expected: 04/27/2023, Expires: 04/27/2024 [facility] Comment on above: Expected: 04/27/2023, Expires: Start: 04-21-2023 End: 04-21-2023 ambulatory 04/21/2023 Pre-Operative Nurse Assessment Internal Medicine [facility] Pre [facility] Start: 03-23-2023 Diabetic foot examination DIABETIC FOOT EXAM [facility] Start: 03-23-2023 Screening for malignant neoplasm of lung LUNG CANCER SCREENING [facility] Start: 03-17-2023 End: 03-17-2023 Patient encounter procedure 03/17/2023 Office Visit Nephrology Fernando Davison MD [address] [place] [address] [facility] 2 Start: 02-21-2023 End: 02-21-2023 Patient encounter procedure 02/21/2023 Office Visit Cardiovascular Medicine Delilah Calderon, DO [address] [place] [address] [facility] Start: 02-14-2023 End: 02-15-2024 Bone density scan BONE DENSITY AXIAL (HIP, PELVIS, SPINE) Imaging Routine Asymptomatic postmenopausal state Expected: 02/14/2023, Expires: 02/15/2024 [facility] Comment on above: Expected: 02/14/2023, Expires: Start: 02-14-2023 End: 02-15-2024 Magnesium [Mass/volume] in Serum or Plasma MAGNESIUM Lab Routine Type 2 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 disease, without long-term current use of insulin Stage 3a chronic kidney disease Expected: 02/14/2023, Expires: 02/15/2024 [facility] Comment on above: Expected: 02/14/2023, Expires: Start: 02-14-2023 End: 02-14-2023 Patient encounter procedure 02/14/2023 Office Visit Family Medicine Fernie Paredes, DO [address] [address] [facility] Start: 02-14-2023 End: 02-15-2024 PTH INTACT PTH INTACT Lab Routine Type 2 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 disease, without long-term current use of insulin Stage 3a chronic kidney disease Expected: 02/14/2023, Expires: 02/15/2024 [facility] Comment on above: Expected: 02/14/2023, Expires: Start: 02-13-2023 DEXA SCAN DEXA SCAN [facility] Start: 02-13-2023 Screening for osteoporosis DEXA SCAN [facility] Start: 02-03-2023 End: 02-03-2023 Patient encounter procedure 02/03/2023 Office Visit LINESPERSON 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, LINTER OPERATOR-RESIDENTIAL CARE OFFICER [id number] [place] [address] [facility] LINESPERSON Start: 02-02-2023 History and physical examination, annual for health maintenance Wellness Visit [facility] Start: 02-02-2023 Microscopic observation [Identifier] in Cervix by Cyto stain PAP SMEAR [facility] Start: 02-02-2023 Screening for malignant neoplasm of cervix PAP SMEAR [facility] Start: 2023 ADVANCE DIRECTIVE DISCUSSION ADVANCE DIRECTIVE DISCUSSION [facility] Start: 2023 BONE DENSITY BONE DENSITY [facility] Start: 2023 Bone Density Screening Bone Density Screening [facility] Start: 2023 Fall risk assessment Falls Risk Assessment [facility] Start: 01-22-2023 Medicare Annual Wellness Visit Medicare Annual Wellness Visit [facility] Start: 01-17-2023 COVID-19 VACCINE (8 - Pfizer risk series) COVID-19 VACCINE (8 - Pfizer risk series) [facility] Start: 01-17-2023 End: 01-17-2023 Patient encounter procedure 01/17/2023 Office Visit Family Medicine Fernie Paredes, DO [address] [address] [facility] Start: 01-13-2023 End: 01-13-2023 ambulatory 01/13/2023 Pre-Operative Nurse Assessment Internal Medicine [facility] Pre Admission Start: 01-06-2023 Mammography MAMMOGRAM [facility] Start: 01-06-2023 Screening for malignant neoplasm of breast MAMMOGRAM [facility] Start: 12-30-2022 Diabetic foot examination DIABETIC FOOT EXAM [facility] Start: 12-30-2022 LIPIDS LIPIDS [facility] Start: 12-30-2022 Microalbumin measurement, urine, quantitative URINE MICROALBUMIN TEST [facility] Start: 12-30-2022 Potassium [Moles/volume] in Serum or Plasma POTASSIUM [facility] Start: 12-30-2022 Screening for malignant neoplasm of lung LUNG CANCER SCREENING [facility] Start: 12-16-2022 End: 12-16-2022 Fluor needle/cath spine/paraspinal dx/ther addon GUIDANCE FLUOROSCOPIC NEEDLE OR CATHETER PLACEMENT FOR SPINE INJECTION ADD-ON PX Other spondylosis with radiculopathy, lumbar region 12/16/2022 7:50 AM EST [facility] Start: 12-16-2022 End: 12-16-2022 Injection aa&/strd other peripheral nerve/branch INJECTION NERVE OTHER PERIPHERAL Other spondylosis with radiculopathy, lumbar region 12/16/2022 7:50 AM EST [facility] Start: 11-26-2022 Hemoglobin A1c measurement HBA1C TEST [facility] Start: 11-23-2022 End: 11-23-2022 Patient encounter procedure 11/23/2022 Office Visit Cardiovascular Medicine Delilah Calderon DO [address] [place] [address] [facility] Start: 11-22-2022 End: 11-22-2022 Patient encounter procedure 11/22/2022 Office Visit Family Medicine Fernie Paredes DO [address] [place] [address] [facility] Start: 11-17-2022 End: 11-17-2022 Patient encounter procedure 11/17/2022 Office Visit Orthopaedics Gonsalo Blackwood MD [address] [place] [address] [facility] Start: 10-06-2022 End: 10-06-2022 Patient encounter procedure [facility] Start: 09-29-2022 End: 09-29-2022 Clinical Support Encounter 09/29/2022 Clinical Support Encounter Hematology Naty Bhakta MD [address] [place] [id number] Arrived Division of Hematology & Oncology Comment on above: Arrived Start: 09-02-2022 End: 09-02-2022 Patient encounter procedure 09/02/2022 Office Visit Orthopaedics Gonsalo Blackwood MD [address] [place] [address] [facility] Start: 09-02-2022 PTRECHADUL, Provider: Jaswinder Schwartz, Status: Pen, Time: 10:00 AM PTRECHADUL, Provider: Jaswinder Schwartz, Status: Pen, Time: 10:00 AM [facility] Start: 08-31-2022 [email or web address], Provider: Jaswinder Schwartz, Status: Pen, Time: 10:00 AM [email or web address], Provider: Jaswinder Schwartz, Status: Pen, Time: 10:00 AM [facility] Work Phone: Start: 08-31-2022 End: 08-31-2022 Admission to same day surgery center 08/31/2022 Surgery Multispecialty Dariusz Rangel MD [address] [place] [phone] COLPORRHAPHY ANTERIOR REPAIR CYSTOCELE [facility] Comment on above: COLPORRHAPHY ANTERIOR REPAIR CYSTOCELE Start: 08-31-2022 End: 08-31-2022 Anterior colporraphy rpr cystocele w/cysto COLPORRHAPHY ANTERIOR REPAIR CYSTOCELE Mixed stress and urge urinary incontinence Midline cystocele Urethral hypermobility 08/31/2022 9:00 AM EST [facility] Start: 08-31-2022 End: 08-31-2022 Cystourethroscopy w/dil bladder general anesth CYSTOURETHROSCOPY W/ DILATION BLADDER Mixed stress and urge urinary incontinence Midline cystocele Urethral hypermobility 08/31/2022 9:00 AM EST [facility] Start: 08-31-2022 End: 08-31-2022 Sling operation stress incontinence SUSPENSION URETHRA/URETHROVESICAL FEMALE OPEN W/ SYNTHETIC MATERIAL (SLING) Mixed stress and urge urinary incontinence Midline cystocele Urethral hypermobility 08/31/2022 9:00 AM EST [facility] Start: 08-31-2022 Subsequent hospital visit by physician 08/31/2022 Hospital Encounter Multispecialty Dariusz Rangel MD [address] [place] [address] Mixed stress and urge urinary incontinence [facility] Comment on above: Mixed stress and urge urinary incontinen ce Start: 08-30-2022 [email or web address], Provider: Jaswinder Schwartz, Status: Pen, Time: 10:30 AM [email or web address], Provider: Jaswinder Schwartz, Status: Pen, Time: 10:30 AM [facility] Work Phone: Start: 08-27-2022 AQUATICFU4, Provider: Silvia Mcneill, Status: Pen, Time: 8:30 AM AQUATICFU4, Provider: Silvia Mcneill, Status: Pen, Time: 8:30 AM [facility] Work Phone: Start: 08-26-2022 AQUATICFU4, Provider: Laya Gomez, Status: Pen, Time: 10:00 AM AQUATICFU4, Provider: Laya Gomez, Status: Pen, Time: 10:00 AM [facility] Work Phone: Start: 08-24-2022 AQUATICFU4, Provider: Laya Gomez, Status: Pen, Time: 10:00 AM AQUATICFU4, Provider: aLya Gomez, Status: Pen, Time: 10:00 AM [facility] Work Phone: Start: 08-20-2022 End: 08-20-2023 Complete blood count with white cell differential, automated CBC, EDIF, PLATELET Lab Routine 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 disease, without long-term current use of insulin Hyperlipidemia LDL goal <70 Idiopathic chronic gout without tophus, unspecified site B12 deficiency Fatty liver Folate deficiency Anemia, unspecified type Expected: 08/20/2022, Expires: 08/20/2023 [facility] Comment on above: Expected: 08/20/2022, Expires: 3 Start: 08-20-2022 End: 08-20-2023 Comprehensive metabolic 2000 panel - Serum or Plasma COMPREHENSIVE METABOLIC PANEL Lab Routine 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 disease, without long-term current use of insulin Hyperlipidemia LDL goal <70 Idiopathic chronic gout without tophus, unspecified site Fatty liver Expected: 08/20/2022, Expires: 08/20/2023 [facility] Comment on above: Expected: 08/20/2022, Expires: 3 Start: 08-20-2022 End: 08-20-2023 Cyanocobalamin vitamin b-12 VITAMIN B12 Lab Routine B12 deficiency Folate deficiency Anemia, unspecified type Expected: 08/20/2022, Expires: 08/20/2023 [facility] Comment on above: Expected: 08/20/2022, Expires: 3 Start: 08-20-2022 End: 08-20-2023 Ferritin [Mass/volume] in Serum or Plasma FERRITIN Lab Routine Anemia, unspecified type Expected: 08/20/2022, Expires: 08/20/2023 [facility] Comment on above: Expected: 08/20/2022, Expires: 3 Start: 08-20-2022 End: 08-20-2023 Folate [Mass/volume] in Serum or Plasma FOLATE, SERUM Lab Routine B12 deficiency Folate deficiency Anemia, unspecified type Expected: 08/20/2022, Expires: 08/20/2023 [facility] Comment on above: Expected: 08/20/2022, Expires: 3 Start: 08-20-2022 End: 08-20-2023 Hemoglobin A1c/Hemoglobin.total in Blood HEMOGLOBIN A1C Lab Routine 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 disease, without long-term current use of insulin Expected: 08/20/2022, Expires: 08/20/2023 [facility] Comment on above: Expected: 08/20/2022, Expires: 3 Start: 08-20-2022 End: 08-20-2023 IRON/IRON BINDING/TRANSFERRIN IRON/IRON BINDING/TRANSFERRIN Lab Routine Anemia, unspecified type Expected: 08/20/2022, Expires: 08/20/2023 [facility] Comment on above: Expected: 08/20/2022, Expires: 3 Start: 08-20-2022 End: 08-20-2023 LIPID PANEL W CALCULATED LDL LIPID PANEL W CALCULATED LDL Lab Routine 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 disease, without long-term current use of insulin Hyperlipidemia LDL goal <70 Idiopathic chronic gout without tophus, unspecified site Fatty liver Expected: 08/20/2022, Expires: 08/20/2023 [facility] Comment on above: Expected: 08/20/2022, Expires: 3 Start: 08-20-2022 End: 08-20-2023 Thyrotropin [Units/volume] in Serum or Plasma TSH Lab Routine 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 disease, without long-term current use of insulin Hyperlipidemia LDL goal <70 Idiopathic chronic gout without tophus, unspecified site Fatty liver Expected: 08/20/2022, Expires: 08/20/2023 [facility] Comment on above: Expected: 08/20/2022, Expires: 3 Start: 08-20-2022 End: 08-20-2023 Urate [Mass/volume] in Serum or Plasma URIC ACID Lab Routine 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 disease, without long-term current use of insulin Idiopathic chronic gout without tophus, unspecified site Expected: 08/20/2022, Expires: 08/20/2023 [facility] Comment on above: Expected: 08/20/2022, Expires: 3 Start: 08-20-2022 End: 08-20-2023 VITAMIN D (25-HYDROXY,TOTAL) VITAMIN D (25-HYDROXY,TOTAL) Lab Routine 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 disease, without long-term current use of insulin Vitamin D deficiency Expected: 08/20/2022, Expires: 08/20/2023 [facility] Comment on above: Expected: 08/20/2022, Expires: 3 Start: 08-20-2022 End: 08-20-2022 Patient encounter procedure 08/20/2022 Office Visit Family Medicine Fernie Paredes, DO [address] [place] [address] [facility] Start: 08-20-2022 [email or web address], Provider: Silvia Mcneill, Status: Pen, Time: 10:00 AM AQUATICFU4, Provider: Silvia Mcneill, Status: Pen, Time: 10:00 AM [facility] Work [facility]: Start: 08-17-2022 AQUATICFU4, Provider: Laya Gomez, Status: Pen, Time: 10:00 AM AQUATICFU4, Provider: Laya Gomez, Status: Pen, Time: 10:00 AM [facility] Work Phone: Start: 08-13-2022 AQUATICFU4, Provider: Silvia Mcneill, Status: Pen, Time: 10:00 AM AQUATICFU4, Provider: Silvia Mcneill, Status: Pen, Time: 10:00 AM [facility] Work Phone: Start: 08-11-2022 AQUATICFU4, Provider: Silvia Mcneill, Status: Pen, Time: 10:45 AM AQUATICFU4, Provider: Silvia Mcneill, Status: Pen, Time: 10:45 AM [facility] Work Phone: Start: 08-09-2022 End: 08-09-2022 ambulatory 08/09/2022 Pre-Operative Nurse Assessment Multispecialty [facility] Pre Admission Testing Start: 08-09-2022 End: 08-09-2022 Patient encounter procedure 08/09/2022 Office Visit LINESPERSON Radha Saleh, LINTER OPERATOR-RESIDENTIAL CARE OFFICER [address] [facility] [address] [place] [phone] [facility] Start: 08-05-2022 AQUATICFU4, Provider: Laya Gomez, Status: Pen, Time: 12:15 PM AQUATICFU4, Provider: Laya Gomez, Status: Pen, Time: 12:15 PM [facility] Work Phone: Start: 08-04-2022 Microscopic observation [Identifier] in Cervix by Cyto stain PAP SMEAR [facility] Start: 08-04-2022 End: 08-04-2022 Patient encounter procedure 08/04/2022 Office Visit Hematology Naty Bhakta MD [address] [place] [address] Division of Hematology & Oncology Start: 08-03-2022 AQUATICFU4, Provider: Laya Gomez, Status: Pen, Time: 11:30 AM AQUATICFU4, Provider: Laya Gomez, Status: Pen, Time: 11:30 AM [facility] Work Phone: Start: 07-29-2022 AQUATICFU4, Provider: Laya Gomez, Status: Pen, Time: 11:30 AM AQUATICFU4, Provider: Laya Gomez, Status: Pen, Time: 11:30 AM [facility] Work Phone: Start: 07-08-2022 End: 07-08-2022 Patient encounter procedure 07/08/2022 Office Visit LINESPERSON Dariusz Rangel MD [address] [place] [phone] [facility] Start: 07-02-2022 Hemoglobin A1c measurement HBA1C TEST [facility] Start: 06-30-2022 Diabetic retinal eye exam EYE EXAM [facility] Start: 06-30-2022 Glaucoma screening EYE EXAM [facility] Start: 06-24-2022 Influenza vaccination [facility] Start: 06-17-2022 End: 06-17-2022 Arthrodesis sacroiliac joint percutaneous ARTHRODESIS SACROILIAC JOINT MINIMALLY INVASIVE Sacroiliitis 06/17/2022 9:01 AM EDT [facility] Start: 06-17-2022 End: 06-17-2022 Fluor needle/cath spine/paraspinal dx/ther addon GUIDANCE FLUOROSCOPIC NEEDLE OR CATHETER PLACEMENT FOR SPINE INJECTION ADD-ON PX Sacroiliitis 06/17/2022 9:01 AM EDT [facility] Start: 06-15-2022 End: 06-15-2022 Patient encounter procedure 06/15/2022 Office Visit Family Medicine Fernie Paredes, DO [address] [place] [address] [facility] Start: 06-10-2022 LIPID SCREEN LIPID SCREEN [facility] Start: 06-07-2022 End: 06-07-2022 Patient encounter procedure 06/07/2022 Office Visit LINESPERSON Dariusz Rangel MD [address] [place] [phone] [facility]ESPERSON Start: 05-31-2022 End: 05-31-2022 Patient encounter procedure 05/31/2022 Office Visit Cardiovascular Medicine Delilah Calderon, DO [address] [place] [address] [facility] Start: 05-28-2022 End: 05-28-2022 Patient encounter procedure 05/28/2022 Office Visit LINESPERSON [facility] LINESPERSON Start: 05-10-2022 End: 05-10-2022 Patient encounter procedure 05/10/2022 Office Visit Chemotherapy Shelley Nicole MD [address] [place] [address] [facility] [place] [facility] Start: 04-16-2022 End: 04-16-2022 Patient encounter procedure 04/16/2022 Office Visit Urology Jonathan Cm, RESIDENTIAL CARE OFFICER [address] [place] [address] [facility] Start: 03-23-2022 End: 03-23-2023 Complete blood count with white cell differential, automated CBC, EDIF, PLATELET Lab Routine Controlled type 2 diabetes mellitus with chronic kidney disease, without long-term current use of insulin, unspecified CKD stage Hyperlipidemia LDL goal <70 Idiopathic chronic gout without tophus, unspecified site B12 deficiency Folate deficiency PVC's (premature ventricular contractions) Anemia, unspecified type Expected: 03/23/2022, Expires: 03/23/2023 [facility] Comment on above: Expected: 03/23/2022, Expires: 3 Start: 03-23-2022 End: 03-23-2023 Comprehensive metabolic 2000 panel - Serum or Plasma COMPREHENSIVE METABOLIC PANEL Lab Routine Controlled type 2 diabetes mellitus with chronic kidney disease, without long-term current use of insulin, unspecified CKD stage Hyperlipidemia LDL goal <70 Idiopathic chronic gout without tophus, unspecified site PVC's (premature ventricular contractions) Expected: 03/23/2022, Expires: 03/23/2023 [facility] Comment on above: Expected: 03/23/2022, Expires: 3 Start: 03-23-2022 End: 03-23-2023 Cyanocobalamin vitamin b-12 VITAMIN B12 Lab Routine B12 deficiency Folate deficiency Anemia, unspecified type Expected: 03/23/2022, Expires: 03/23/2023 [facility] Comment on above: Expected: 03/23/2022, Expires: 3 Start: 03-23-2022 End: 03-23-2023 Ferritin [Mass/volume] in Serum or Plasma FERRITIN Lab Routine Anemia, unspecified type Expected: 03/23/2022, Expires: 03/23/2023 [facility] Comment on above: Expected: 03/23/2022, Expires: 3 Start: 03-23-2022 End: 03-23-2023 Folate [Mass/volume] in Serum or Plasma FOLATE, SERUM Lab Routine B12 deficiency Folate deficiency Anemia, unspecified type Expected: 03/23/2022, Expires: 03/23/2023 [facility] Comment on above: Expected: 03/23/2022, Expires: 3 Start: 03-23-2022 End: 03-23-2023 Hemoglobin A1c/Hemoglobin.total in Blood HEMOGLOBIN A1C Lab Routine Controlled type 2 diabetes mellitus with chronic kidney disease, without long-term current use of insulin, unspecified CKD stage Expected: 03/23/2022, Expires: 03/23/2023 [facility] Comment on above: Expected: 03/23/2022, Expires: 3 Start: 03-23-2022 End: 03-23-2023 IRON/IRON BINDING/TRANSFERRIN IRON/IRON BINDING/TRANSFERRIN Lab Routine Anemia, unspecified type Expected: 03/23/2022, Expires: 03/23/2023 [facility] Comment on above: Expected: 03/23/2022, Expires: 3 Start: 03-23-2022 End: 03-23-2023 LIPID PANEL W CALCULATED LDL LIPID PANEL W CALCULATED LDL Lab Routine Controlled type 2 diabetes mellitus with chronic kidney disease, without long-term current use of insulin, unspecified CKD stage Hyperlipidemia LDL goal <70 Idiopathic chronic gout without tophus, unspecified site PVC's (premature ventricular contractions) Expected: 03/23/2022, Expires: 03/23/2023 [facility] Comment on above: Expected: 03/23/2022, Expires: 3 Start: 03-23-2022 End: 03-23-2023 Thyrotropin [Units/volume] in Serum or Plasma TSH Lab Routine Controlled type 2 diabetes mellitus with chronic kidney disease, without long-term current use of insulin, unspecified CKD stage Hyperlipidemia LDL goal <70 Idiopathic chronic gout without tophus, unspecified site PVC's (premature ventricular contractions) Expected: 03/23/2022, Expires: 03/23/2023 [facility] Comment on above: Expected: 03/23/2022, Expires: 3 Start: 03-23-2022 End: 03-23-2023 Urate [Mass/volume] in Serum or Plasma URIC ACID Lab Routine Controlled type 2 diabetes mellitus with chronic kidney disease, without long-term current use of insulin, unspecified CKD stage Idiopathic chronic gout without tophus, unspecified site Expected: 03/23/2022, Expires: 03/23/2023 [facility] Comment on above: Expected: 03/23/2022, Expires: 3 Start: 03-23-2022 End: 03-23-2023 VITAMIN D (25-HYDROXY,TOTAL) VITAMIN D (25-HYDROXY,TOTAL) Lab Routine Vitamin D deficiency Expected: 03/23/2022, Expires: 03/23/2023 [facility] Comment on above: Expected: 03/23/2022, Expires: Start: 03-23-2022 End: 03-23-2022 Patient encounter procedure 03/23/2022 Office Visit Family Medicine Fernie Paredes, DO [address] [place] [address] [facility] Start: 03-12-2022 End: 03-12-2022 Patient encounter procedure 03/12/2022 Office Visit Urology Jonathan Cm, RESIDENTIAL CARE OFFICER [address] [place] [address] [facility] Start: 03-02-2022 End: 03-02-2022 Patient encounter procedure 03/02/2022 Office Visit Orthopaedics Garry Stephens MD [address] [facility] [place] [address] [facility] Start: 02-22-2022 Microscopic observation [Identifier] in Cervix by Cyto stain PAP SMEAR [facility] Start: 02-04-2022 End: 02-04-2022 Patient encounter procedure 02/04/2022 Office Visit Orthopaedics Garry Stephens MD [address] [facility] [place] [address] [facility] Start: 02-02-2022 End: 02-02-2022 Patient encounter procedure 02/02/2022 Office Visit LINESPERSON 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, LINTER OPERATOR-RESIDENTIAL CARE OFFICER [id number] [place] [address] [facility] LINESPERSON Start: 02-01-2022 End: 02-01-2022 Patient encounter procedure 02/01/2022 Office Visit Chemotherapy Shelley Nicole MD [address] [place] [address] [facility] [place] [facility]A Start: 01-05-2022 Mammography MAMMOGRAM [facility] Start: 01-05-2022 Screening mammography Mammogram [facility] Start: 10-24-2021 DEPRESSION ASSESSMENT DEPRESSION ASSESSMENT [facility] Start: 2018 Hepatitis B Vaccines (1 of 3 - Risk 3-dose series) Hepatitis B Vaccines (1 of 3 - Risk 3-dose series) [facility] Start: 2018 Respiratory Syncytial Virus Immunization: Risk, 60-74 Risk, or 75+ (1 - Risk 60-74 years 1-dose series) Respiratory Syncytial Virus Immunization: Risk, 60-74 Risk, or 75+ (1 - Risk 60-74 years 1-dose series) [facility] Start: 2018 RSV High Risk: (Elderly (60+) or Population) (1 - Risk 60-74 years 1-dose series) RSV High Risk: (Elderly (60+) or Population) (1 - Risk 60-74 years 1-dose series) [facility] Start: 2018 RSV Vaccine (1 - 1-dose 60+ series) RSV Vaccine (1 - 1-dose 60+ series) [facility] Start: 2018 RSV Vaccine (1 - Risk 60-74 years 1-dose series) RSV Vaccine (1 - Risk 60-74 years 1-dose series) [facility] Start: 06-10-2017 Procedure Education Eprescribed prescriptions (G8553) [facility] Work Phone: Start: 06-10-2017 Provider Instructions for Treatment Follow up in 6 weeks [facility] Work Phone: Start: 02-04-2017 Provider Instructions for Treatment [facility] Work Phone: Start: 02-04-2017 Blood occult fecal hgb deter ia qual feces 1-3 FECAL OCCULT- Tubes sent home (81039) [facility] Work Phone: Start: 04-12-2016 Patient Education 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 Work Phone: Start: 04-12-2016 Procedure Education Eprescribed prescriptions (G8553) [facility] Work Phone: Start: 04-12-2016 Glucose mass conc Blood Glucose , Office ([id number]) [facility] Work Phone: Start: 02-11-2016 Hepatic function panel HEPATIC FUNCTION PANEL (49709) [facility] Work Phone: Start: 12-04-2015 Procedure Education Eprescribed prescriptions (G8553) [facility] Work Phone: Start: 12-04-2015 Hemoglobin A1c/Hemoglobin.total mass fraction (Bld) Hemoglobin Glyclated (HGB A1C) ([id number]) [facility] Work Phone: Start: 12-04-2015 Comprehensive metabolic panel METABOLIC PANEL, COMPREHENSIVE (31424) [facility] Work Phone: Start: 12-04-2015 Lipid panel LIPID PANEL ([id number]) 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 Work Phone: Start: 02-14-2015 Provider Instructions for Treatment [facility] Work Phone: Start: 02-14-2015 [employer] influenza FLU A+B DIRECT AG, (RAPID) (91143) [facility] Work Phone: Start: 10-22-2014 Procedure Education Eprescribed prescriptions (G8553) [facility] Work Phone: Start: 10-22-2014 Cobalamin (Vitamin B12) mass conc Vitamin B-12 (cyanocobalamin) (68599) [facility] Work Phone: Start: 10-22-2014 Hemoglobin A1c/Hemoglobin.total mass fraction (Bld) HgA1C , Office (41126) [facility] Work Phone: Start: 10-22-2014 Hepatic function panel HEPATIC FUNCTION PANEL (62569) [facility] Work Phone: Start: 10-22-2014 25 hydroxy includes fractions if performed CALCIFIDIOL (23864) VIT D 25 [facility] Work Phone: Start: 05-31-2014 Colonoscopy COLONOSCOPY [facility] Start: 05-31-2014 COLORECTAL CANCER SCREENING COLORECTAL CANCER SCREENING [facility] Start: 05-31-2014 Screening for malignant neoplasm of colon [facility] Start: 04-29-2014 Comprehensive metabolic panel METABOLIC PANEL, COMPREHENSIVE (07863) [facility] Work Phone: Start: 04-29-2014 Lipid panel LIPID PANEL (15162) 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 Work Phone: Start: 09-28-2013 Lipid panel LIPID PANEL (36554) 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 Work Phone: Start: 09-28-2013 Hepatic function panel HEPATIC FUNCTION PANEL (05755) [facility] Work Phone: Start: 09-03-2013 Patient Education Nausea and Vomiting: nausea [facility] Work Phone: Start: 09-03-2013 Hepatic function panel HEPATIC FUNCTION PANEL (20738) [facility] Work Phone: Start: 09-03-2013 Acute hepatitis panel HEPATITIS PANEL (54582) [facility] Work Phone: Start: 09-03-2013 Fluorescent nonnfct agt antb screen ea antibody ASM (ANTI SMOOTH MUSCLE ANTIBODY) (72485) [facility] Work Phone: Start: 09-03-2013 Microsomal antibodies each ANTI-LIVER/KIDNEY MICROSOMAL ANTIBODY (03677) [facility] Work Phone: Start: 09-03-2013 Immunoassay analyte qual/semiqual multiple step ANTIMITOCHONDRIAL ANTIBODY (71416) [facility] Work Phone: Start: 09-03-2013 Ferritin mass conc FERRITIN (48080) 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 Work Phone: Start: 09-03-2013 Ceruloplasmin CERULOPLASMIN (06926) [facility] Work Phone: Start: 04-17-2013 Provider Instructions for Treatment Follow up in 2 weeks [facility] Work Phone: Start: 04-17-2013 Troponin I.cardiac mass conc Troponin I (26321) [facility] Work Phone: Start: 04-17-2013 Creatine kinase mb fraction only CPK MB FRACTION (32713) [facility] Work Phone: Start: 04-17-2013 Creatine kinase total CREATINE KINASE TOTAL (24977) [facility] Work Phone: Start: 03-01-2013 Comprehensive metabolic panel METABOLIC PANEL, COMPREHENSIVE (13555) [facility] Work Phone: Start: 03-01-2013 Lipid panel LIPID PANEL (95505) 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 Work Phone: Start: 03-01-2013 Blood count manual cell count each CBC WITH MANUAL DIFF (37663) [facility] Work Phone: Start: 03-01-2013 Organic acid 1 quantitative Methymalonic Acid, Serum (73117) [facility] Work Phone: Start: 03-01-2013 Cobalamin (Vitamin B12) mass conc Vitamin B-12 (cyanocobalamin) (35200) [facility] Work Phone: Start: 03-01-2013 25 hydroxy includes fractions if performed CALCIFIDIOL (97228) VIT D 25 [facility] Work Phone: Start: 09-08-2012 Comprehensive metabolic panel Metabolic Panel, Comprehensive (85649) [facility] Work Phone: Comment on above: in three months (approximately) Start: 09-08-2012 Protein mass conc LIPOPROTEIN, BLD, BY NMR (19332) [facility] Work Phone: Comment on above: in three months (approximately) Start: 03-30-2012 Hepatitis B vaccination [facility] tem Start: 12-03-2011 Fibrin dgradj splt products quantitative FIBRIN DEGRAD QUANTITATV (17407) [facility] Work Phone: Start: 12-03-2011 Acute hepatitis panel HEPATITIS PANEL (56167) [facility] Work Phone: Start: 12-03-2011 Culture bacterial blood aerobic w/id isolates TYRA CULTURE-BLOOD (94481) [facility] Work Phone: Start: 12-03-2011 Tb cell mediated antign respnse gamma interferon Quantiferron gold test (74732) [facility] Work Phone: Start: 12-03-2011 Antihuman globulin indir qual ea reagent cell MARION TEST, INDIRECT (89089) [facility] Work Phone: Start: 12-03-2011 Antihuman globulin direct each antiserum MARION TEST, DIRECT (39171) [facility] Work Phone: Start: 12-03-2011 aPTT Coag time (Bld) PTT (Activated Partial Thromboplastin Time) (68902) [facility] Work Phone: Start: 12-03-2011 Prothrombin time (PT) Coag time (PPP) PT (Prothrobim Time) (37920) [facility] Work Phone: Start: 12-03-2011 Nuclear Ab IF titer (S) MARY (ANTINUCLEAR ANTIBODY) (07379) [facility] Work Phone: Start: 12-03-2011 Sedimentation rate rbc non-automated Sed Rate Erythrocyte (93411) [facility] Work Phone: Start: 12-03-2011 CRP mass conc C-Reactive Protein (29729) [facility] Work Phone: Start: 11-29-2011 Assay of ethanol ALCOHOL, ETHYL (BLOOD) (67936) [facility] Work Phone: Start: 11-29-2011 Blood count manual cell count each CBC with manual diff (06551) [facility] Work Phone: Start: 11-29-2011 Assay of folic acid serum Folic Acid Serum (49646) [facility] Work Phone: Start: 11-29-2011 Cobalamin (Vitamin B12) mass conc Vitamin B-12 (cyanocobalamin) (84112) [facility] Work Phone: Start: 11-29-2011 Antibody sonya-larsen eb virus early antigen ea EBV Panel (68398) [facility] Work Phone: Start: 11-29-2011 Antibody cytomegalovirus cmv igm CMV IGM ANTBDY (50671) [facility] Work Phone: Start: 11-29-2011 Antibody cytomegalovirus cmv CMV ANTIBODY (99589) [facility] Work Phone: Start: 11-19-2011 Assay of ethanol ALCOHOL, ETHYL (BLOOD) (89698) [facility] Work Phone: Comment on above: add to labs already drawn Start: 11-19-2011 Assay of folic acid serum Folic Acid Serum (49666) [facility] Work Phone: Start: 11-19-2011 Cobalamin (Vitamin B12) mass conc Vitamin B-12 (cyanocobalamin) (82996) [facility] Work Phone: Start: 11-18-2011 Lactate dehydrogenase ldh LDH (LD) (LACTATE DEHYDROGENASE) (63006) [facility] Work Phone: Start: 11-17-2011 Blood count manual cell count each CBC with manual diff (40042) [facility] Work Phone: Start: 10-21-2011 25 hydroxy includes fractions if performed CALCIFIDIOL (51108) VIT D 25 [facility] Work Phone: Comment on above: low calcium Start: 10-21-2011 Comprehensive metabolic panel METABOLIC PANEL, COMPREHENSIVE (58132) [facility] Work Phone: Start: 10-21-2011 Protein mass conc LIPOPROTEIN, BLD, BY NMR (41093) [facility] Work Phone: Start: 10-19-2011 Provider Instructions for Treatment [facility] Work Phone: Start: 10-19-2011 Comprehensive metabolic panel METABOLIC PANEL, COMPREHENSIVE (58802) [facility] Work Phone: Start: 10-19-2011 Lipid panel LIPID PANEL (25148) 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 Work Phone: Start: 09-03-2010 Culture bct isol&prsmptv id isolate ea urine URINE TYRA CULTURE-IDENTIFICATN (64584) [facility] Work Phone: Start: 06-18-2010 Comprehensive metabolic panel METABOLIC PANEL, COMPREHENSIVE (85210) [facility] Work Phone: Start: 06-18-2010 Lipid panel LIPID PANEL (46793) 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 Work Phone: Start: 05-25-2010 Provider Instructions for Treatment [facility] Work Phone: Start: 08-22-2008 Cobalamin (Vitamin B12) mass conc Vitamin B-12 (cyanocobalamin) (33389) [facility] Work Phone: Start: 08-22-2008 Blood count complete automated CBC (Auto) (28428) [facility] Work Phone: Start: 08-22-2008 Comprehensive metabolic panel Metabolic Panel, Comprehensive (95415) [facility] Work Phone: Start: 08-22-2008 Lipid panel Lipid Panel (55221) 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 Work Phone: Start: 08-22-2008 Organic acid 1 quantitative Methylmalonic acid, serum 32629 [facility] Work Phone: Start: 01-26-2008 Administration of herpes zoster vaccine Zoster Vaccines (1 of 2) [facility] Start: 01-26-2008 Provider Instructions for Treatment FOLLOW UP IN 4 WEEKS [facility] Work Phone: Start: 01-26-2008 Screening for malignant neoplasm of colon [facility] Start: 01-26-2008 Lipid panel Lipid Panel (49740) 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 Work Phone: Start: 01-26-2008 Comprehensive metabolic panel Metabolic Panel, Comprehensive (82867) [facility] Work Phone: Comment on above: in six months (approximately) Start: 12-26-2007 Provider Instructions for Treatment [facility] Work Phone: Start: 12-26-2007 Urinalysis qual/semiquant except immunoassays URINALYSIS (77565) [facility] Work Phone: Start: 12-26-2007 Blood count complete automated CBC (Auto) (60969) [facility] Work Phone: Start: 12-26-2007 Comprehensive metabolic panel Metabolic Panel, Comprehensive (66522) [facility] Work Phone: Start: 12-26-2007 Lipid panel Lipid Panel (76650) 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 Work Phone: Start: 10-11-2007 Provider Instructions for Treatment [facility] Work Phone: Start: 12-29-2006 Blood count complete automated CBC (Auto) (09369) [facility] Work Phone: Start: 12-29-2006 Lipid panel Lipid Panel (36422) 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 Work Phone: Start: 12-29-2006 Comprehensive metabolic panel Metabolic Panel, Comprehensive (75332) [facility] Work Phone: Comment on above: in three months Start: 11-30-2006 Thyrotropin Qn TSH (55470) 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 Work Phone: Start: 11-30-2006 Comprehensive metabolic panel METABOLIC PANEL, COMPREHENSIVE (17156) [facility] Work Phone: Start: 11-30-2006 Lipid panel LIPID PANEL (36110) 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 Work Phone: Start: 11-30-2006 Blood count manual cell count each CBC WITH MANUAL DIFF (88810) [facility] Work Phone: Comment on above: request Start: 2003 COLOGUARD (FIT-DNA) COLOGUARD (FIT-DNA) [facility] Start: [address] COLONOGRAPHY [facility] Start: 2003 FECAL OCCULT BLOOD FECAL OCCULT BLOOD [facility] Start: 2003 Screening for malignant neoplasm of colon [facility] Start: 2003 SIGMOIDOSCOPY SIGMOIDOSCOPY [facility] Start: 01-26-1988 HPV TESTING HPV TESTING [facility] Start: 01-26-1988 Screening for malignant neoplasm of cervix HPV/Cotest [facility] Start: 1979 PAP TESTING PAP TESTING [facility] Start: 1977 Administration of herpes zoster vaccine Zoster Vaccines (1 of 2) [facility] Start: 1977 Hepatitis A Vaccines (1 of 2 - Risk 2-dose series) Hepatitis A Vaccines (1 of 2 - Risk 2-dose series) [facility] [place] Start: 1977 SHINGRIX VACCINE (1 of 2) SHINGRIX VACCINE (1 of 2) [facility] Start: 1977 Zoster Vaccines (1 of 2) Zoster Vaccines (1 of 2) [facility] [place] Start: 01-26-1976 ANNUAL PCP TEAM CHRONIC DISEASE VISIT ANNUAL PCP TEAM CHRONIC DISEASE VISIT [facility] Start: 01-26-1976 BP CONTROLLED (<130/80) BP CONTROLLED (<130/80) [facility] in Start: 01-26-1976 Hepatitis C screening Hepatitis C Screening [facility] Start: 1974 COVID-19 Vaccine (1) COVID-19 Vaccine (1) [facility] Start: 1973 HIV screening HIV Screening [facility] Start: 1970 Depression screening using PHQ-9 (Patient Health Questionnaire 9) score [facility] Start: 01-26-1968 Diabetic foot examination Diabetic Foot Exam [facility] Start: 01-26-1968 Urine screening for protein [facility] Start: 1963 COVID-19 VACCINE (#1) COVID-19 VACCINE (#1) [facility] Start: 1961 History and physical examination, annual for health maintenance Wellness Visit [facility] Start: 1961 Medicare Wellness Visit Medicare Wellness Visit [facility] Start: 1959 MMR Vaccines (1 of 1 - Standard series) MMR Vaccines (1 of 1 - Standard series) [facility] [place] Start: 1958 COVID-19 VACCINE (#1) COVID-19 VACCINE (#1) [facility] Start: 1958 Lipid panel Lipid Panel [facility] [place] Start: 1958 Medicare Annual Wellness Visit Medicare Annual Wellness Visit (AWV) [facility] [place] Start: 1958 Screening for malignant neoplasm of cervix Pap Smear [facility] Start: 1958 Screening for malignant neoplasm of colon [facility] 12 lead ECG ECG 12 Lead ECG Routine Atrial fibrillation, unspecified type (HCC) 01/06/2024 10:57 AM EDT [facility] Work Phone: 12 lead ECG ECG 12 Lead ECG Routine Atrial fibrillation, unspecified type (HCC) 05/22/2024 10:15 AM EDT [facility] Work Phone: 12 lead ECG ECG 12 Lead ECG Routine Atrial fibrillation, unspecified type (HCC) 10/29/2024 1:40 PM EST [facility] End: 07-08-2023 ANAEROBE CULTURE [facility] Comment on above: Release Upon Ordering for 1 Occurrences starting 07/08/2023 One Time for 1 Occur rences starting 07/08/2023 until 07/08/2023 ANAEROBE CULTURE ANAEROBE CULTUR E [facility] rpr cystocele w/cysto COLPORRHAPHY ANTERIOR REPAIR CYSTOCELE Mixed stress and urge urinary incontinence Midline cystocele Urethral hypermobility [facility] GAL OR Arthrp kne condyle&p latu medial&lat compartments ARTHROPLASTY KNEE TOTAL Primary osteoarthritis of left knee [facility] OR Bacterial culture an d sensitivity CULTURE WOUND Microbiology Today Cellulitis of fourth toe of left foot [facility] Bacterial culture an d sensitivity CULTURE WOUND Microbiology Today Cellulitis and abscess of toe of left foot [facility] End: 07-08-2023 Bacterial culture and sensitivity [facility] Comment on above: Release Upon Ordering for 1 Occurrences starting 07/08/2023 One Time for 1 Occur rences starting 07/08/2023 until 07/08/2023 Bacterial culture an d sensitivity CULTURE WOUND Microbiology Routine 07/08/2023 10:02 AM [facility] End: 10-29-2025 Basic metabolic 2000 panel - Serum or Plasma Basic metabolic panel Lab Routine PAF (paroxysmal atrial fibrillation) ([facility]) 1 Occurrences starting 10/29/2024 until 10/29/2025 [facility] Comment on above: 1 Occurrences starting 10/29/2024 until 10/29/2025 End: 11-08-2024 Blood type and Indirect antibody screen panel - Blood Type and Screen Blood Bank Routine Preop testing 1 Occurrences starting 11/08/2023 until 11/08/2024 [facility] Comment on above: 1 Occurrences starting 11/08/2023 until 11/08/2024 End: 11-08-2024 Complete blood count with white cell differential, manual CBC and differential Lab Routine Preop testing 1 Occurrences starting 11/08/2023 until 11/08/2024 [facility] Work Phone: Comment on above: 1 Occurrences starting 11/08/2023 until 11/08/2024 End: 10-29-2025 Complete blood count with white cell differential, manual CBC and differential Lab Routine PAF (paroxysmal atrial fibrillation) (HCC) 1 Occurrences starting 10/29/2024 until 10/29/2025 [facility] Work Phone: Comment on above: 1 Occurrences starting 10/29/2024 until 10/29/2025 End: 11-08-2024 Comprehensive metabolic 2000 panel - Serum or Plasma Comprehensive metabolic panel Lab Routine Preop testing 1 Occurrences starting 11/08/2023 until 11/08/2024 [facility] Work Phone: Comment on above: 1 Occurrences starting 11/08/2023 until 11/08/2024 End: 11-08-2024 CT Abdomen WO and W contrast IV CT MARY LOU (Left Atrial Appendage) CCTA With and Without Contrast Imaging Routine Atrial fibrillation, unspecified type (HCC) 1 Occurrences starting 11/08/2023 until 11/08/2024 [facility] Work Phone: Comment on above: 1 Occurrences starting 11/08/2023 until 11/08/2024 End: 06-07-2025 CT [facility]bar spine [facility] Comment on above: 1 Occurrences starting 06/07/2025 until 06/07/2025 End: 02-20-2024 CT Pel[facility] Work Phone: Comment on above: 1 Occurrences starting 02/20/2024 until 02/20/2024 Cystourethroscopy w/ dil bladder general anesth CYSTOURETHROSCOPY W/ DILATION BLADDER Mixed stress and urge urinary incontinence Midline cystocele Urethral hypermobility [facility] End: 04-05-2025 ECG 12 lead ECG 12 lead ECG STAT Once for 1 Occurrences starting 04/05/2025 until 04/05/2025 [facility] Work Phone: Comment on above: Once for 1 Occurrences starting 04/05/20 until 04/05/2025 End: 04-04-2025 Extra Tubes [facility] Service [facility] Work Phone: Comment on above: Once (Lab) for 1 Occurrences starting until 04/04/2025 FUNGITELL ASSAY FUNGITELL ASSAY Lab Today Open wound of fourth toe of left foot, sequela 08/04/2023 11:39 AM [facility] Fungus identified in Unspecified specimen by Culture FUNGUS CULTURE Microbiology Routine Abscess of fourth toe of left foot Cellulitis of fourth toe, left Release Upon Ordering for 1 Occurrences starting 07/08/2023 [facility] Comment on above: Release Upon Ordering for 1 Occurrences starting 07/08/2023 End: 09-28-2023 HOME SLEEP APNEA TEST (HSAT) HOME SLEEP APNEA TEST (HSAT) Procedures Routine PERCY (obstructive sleep apnea) 1 Occurrences starting 09/28/2022 until 09/28/[address] [facility] Work Phone: Comment on above: 1 Occurrences starting 09/28/2022 until 09/28/2023 I&d below fascia wilbert t 1 bursal space I&D [facility]UR[facility] Abscess of fourth toe of left foot Cellulitis of fourth toe, left [facility] End: 11-08-2024 INR in Platelet poor plasma by Coagulation assay Protime-INR Lab Routine Preop testing Atrial fibrillation, unspecified type (HCC) 1 Occurrences starting 11/08/2023 until 11/08/2024 [facility] Comment on above: 1 Occurrences starting 11/08/2023 until 11/08/2024 LEFT ATRIAL APPENDAG E LIGATION LEFT ATRIAL APPENDAGE LIGATION atrial fibrillation [facility] M TUBERCULOSIS BY QUANTIFERON, BLD M TUBERCULOSIS BY QUANTIFERON, BLD Lab Today Open wound of fourth toe of left foot, sequela 08/04/2023 11:39 AM [facility] Karena post-voiding residual urine&/bladder cap MA KARENA,POST-VOID RES,US,NON-IMAGING MA Charge Routine Urge incontinence Ordered: 01/27/2022 [facility] Comment on above: Ordered: 01/27/2022 Karena post-voiding residual urine&/bladder cap MA KARENA,POST-VOID RES,US,NON-IMAGING MA Charge Routine Urinary tract infection without hematuria, site unspecified Urge incontinence Ordered: 04/16/2022 [facility] Comment on above: Ordered: 04/16/2022 End: 01-07-2023 MG Breast - bilateral Screening [facility] Work Phone: Comment on above: 1 Occurrences starting 01/07/2023 until 01/07/2023 End: 01-23-2024 MG Breast - bilateral Screening [facility] Work Phone: Comment on above: 1 Occurrences starting 01/23/2024 until 01/23/2024 End: 03-06-2025 MG Breast - bilateral Screening [facility] Comment on above: 1 Occurrences starting 03/06/2025 until 03/06/2025 End: 06-17-2025 MR Foot - left WO contrast [facility] Comment on above: 1 Occurrences starting 06/17/2025 until 06/17/2025 End: 06-07-2025 MR Lumbar spine WO contrast [facility] Comment on above: 1 Occurrences starting 06/07/2025 until 06/07/2025 End: 07-08-2023 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 Work Phone: Comment on above: 1 Occurrences starting 11/17/2022 until 12/17/2023 OUTSIDE VENDOR CARDI AC OUTPATIENT EXTENDED RHYTHM RECORDING (WITHOUT TELEMETRY) OUTSIDE VENDOR CARDIAC OUTPATIENT EXTENDED RHYTHM RECORDING (WITHOUT TELEMETRY) Holter Routine PAF (paroxysmal atrial fibrillation) (HCC) PVC (premature ventricular contraction) Ordered: 11/17/[address] [facility] Work Phone: Comment on above: Ordered: 11/17/2022 Patient referral [facility] Work Phone: Radiography for bone length studies XR BONE LENGTH STUDY Imaging Routine Left knee pain, unspecified chronicity 11/17/2022 11:40 AM EST [facility] End: 06-17-2022 RF Unspecified body region Views during surgery [facility] Comment on above: One Time for 1 Occurrences starting 05/25 until 06/17/2022 End: 12-16-2022 RF Unspecified body region Views during surgery [facility] Comment on above: One Time for 1 Occurrences starting 11/25 until 12/16/2022 End: 05-03-2024 RF Unspecified body region Views during surgery [facility] Comment on above: One Time for 1 Occurrences starting 04/23 until 05/03/2024 SLEEP FOLLOW UP SLEEP FOLLOW UP Dental Routine 1 Occurrences starting 04/07/[address] [facility] Work Phone: Comment on above: 1 Occurrences starting 04/07/2023 SLEEP IMPRESSIONS SLEEP IMPRESSI ONS Dental Routine 1 Occurrences starting 04/07/[address] [facility] Work Phone: Comment on above: 1 Occurrences starting 04/07/2023 Sling operation stre ss incontinence SUSPENSION URETHRA/URETHROVESICAL FEMALE OPEN W/ SYNTHETIC MATERIAL (SLING) Mixed stress and urge urinary incontinence Midline cystocele Urethral hypermobility [facility] End: 04-04-2025 SST TOP [facility] Work Phone: Comment on above: Once for 1 Occurrences starting 04/04/20 until 04/04/2025, 1 completed SURGICAL PATHOLOGY REQUEST SURGICAL PATHOLOGY REQUEST Surg Path Routine Osteoarthritis of left knee, unspecified osteoarthritis type Release Upon Ordering for 1 Occurrences starting 11/12/2024 [facility] Comment on above: Release Upon Ordering for 1 Occurrences starting 11/12/2024 End: 04-05-2025 Troponin I.cardiac panel - Serum or Plasma by High sensitivity method [facility] Work Phone: Comment on above: STAT (Lab) for 1 Occurrences starting until 04/05/2025 Once for 1 Occurrenc es starting 04/05/2025 until 04/05/2025 unspecified maxillofacial prosthesis, by report SLEEP INSERT Dental Routine 1 Occurrences starting 04/07/[address] [facility] Work Phone: Comment on above: 1 Occurrences starting 04/07/2023 Urodynamic studies URODYNAMICS G U Procedure Routine Urinary incontinence, unspecified type Dysuria Ordered: 06/01/2022 [employer] Work Phone: Comment on above: Ordered: 06/01/2022 URODYNAMICS URODYNAMICS Proc edures Routine Urinary incontinence, unspecified type Dysuria 06/01/2022 9:00 AM EDT [facility] End: 03-20-2024 US Thyroid gland [facility] Comment on above: 1 Occurrences starting 03/20/2024 until 03/20/2024 End: 02-20-2024 XR Hip - right 2 Views [employer] [facility] Work Phone: Comment on above: 1 Occurrences starting 02/20/2024 until 02/20/2024 XR Knee - left 3 Views XR KNEE L EFT 3 VIEWS Imaging Routine History of total knee arthroplasty, left 12/05/2024 2:26 PM EST [employer] XR Knee - left 4 Views XR KNEE L EFT 4+ VIEWS Imaging Routine Left knee pain, unspecified chronicity 11/17/2022 11:40 AM [employer] Work Phone: XR Knee - left 4 Views XR KNEE L EFT 4+ VIEWS Imaging Routine Left knee pain, unspecified chronicity 08/30/2024 2:42 PM EST [facility] End: 10-12-2022 XR Lumbar spine Views W right bending and W left bending [employer] Work Phone: Comment on above: 1 Occurrences starting 10/12/2022 until 10/12/2022 End: 01-23-2024 XR Lumbar spine Views W right bending and W left bending [employer] Work Phone: Comment on above: 1 Occurrences starting 01/23/2024 until 01/23/2024 End: 08-15-2024 XR Lumbar spine Views W right bending and W left bending [employer] Work Phone: Comment on above: 1 Occurrences starting 08/15/2024 until 08/15/2024 End: 05-15-2024 XR Spine lumbosacral junction Views [employer] Work Phone: Comment on above: 1 Occurrences starting 05/15/2024 until 05/15/2024 [facility] Work Phone: [facility] Work Phone: [facility] Work Phone: [facility] Work Phone: [facility] Work Phone: [facility] Work Phone: [facility] Work Phone: [facility] Work Phone: [facility] Work Phone: [facility] Work Phone: [facility] Work Phone: [facility] Work Phone: [facility] Work Phone: [facility] Work Phone: [facility] Work Phone: [facility] Work Phone[facility] Work Phone: [facility] Work Phone: [facility] Work Phone: [facility] Work Phone: [facility] Immunizations Immunization Date Immunization Notes Care Provider [facility] 09-19-2024 influenza, high dose seasonal, preservative-free Fernie Paredes DO Work Phone: [facility] 09-19-2024 influenza virus vacc ine, unspecified formulation Isreal Sigala MD Work Phone: [facility] 08-25-2023 influenza, injectabl e, quadrivalent, preservative free Monse Shipley MD Work Phone: [facility] 08-25-2023 influenza virus vacc ine, unspecified formulation Isreal Sigaal MD Work Phone: [facility] 05-13-2023 pneumococcal polysaccharide vaccine, 23 valent Isreal Sigala MD Work Phone: [facility] 09-29-2022 Seasonal, quadrivale nt, recombinant, injectable influenza vaccine, preservative free Dariusz Rangel MD Work Phone: [facility] 09-29-2022 influenza virus vacc ine, unspecified formulation Fernando Davison MD Work Phone: [facility] 08-07-2021 Seasonal, quadrivale nt, recombinant, injectable influenza vaccine, preservative free Washington Garner MD Work Phone: [facility] 08-07-2021 influenza virus vacc ine, unspecified formulation Fernie Paredes DO Work Phone: [facility] 08-06-2020 influenza, injectabl e, quadrivalent, preservative free Washington Garnre MD Work Phone: [facility] 08-08-2019 influenza, injectabl e, quadrivalent, contains preservative Washington Garner MD Work Phone: [facility] 08-08-2019 pneumococcal conjuga te vaccine, 13 valent Washington Garner MD Work Phone: [facility] 08-02-2018 influenza, injectabl e, quadrivalent, contains preservative Washington Garner MD Work Phone: [facility] 05-12-2018 pneumococcal polysaccharide vaccine, 23 valent Washington Garner MD Work Phone: [facility] 04-14-2018 tetanus toxoid, redu doron diphtheria toxoid, and acellular pertussis vaccine, adsorbed Washington Garner MD Work Phone: [facility] 08-10-2017 influenza, injectabl e, quadrivalent, contains preservative Washington Garner MD Work Phone: [facility] 08-10-2017 influenza, injectabl e, quadrivalent, preservative free Washington Garner MD Work Phone: [facility] 11-03-2016 influenza, injectabl e, quadrivalent, contains preservative Washington Garner MD Work Phone: [facility] 11-03-2016 influenza, injectabl e, quadrivalent, preservative free Washington Garner MD Work Phone: [facility] 10-22-2015 influenza, seasonal, injectable Washington Garner MD Work Phone: [facility] 10-22-2015 pneumococcal conjuga te vaccine, 13 valent Washington Garner MD Work Phone: [facility] 10-27-2011 hepatitis B vaccine, adult dosage Naty Bhakta MD Work Phone: [facility] 10-27-2011 hepatitis B vaccine, pediatric or pediatric/adolescent dosage Washington Garner MD Work Phone: [facility] 09-29-2011 hepatitis B vaccine, adult dosage Naty Bhakta MD Work Phone: [facility] 09-29-2011 hepatitis B vaccine, pediatric or pediatric/adolescent dosage Washington Garner MD Work Phone: [facility] Payers Date Payer Category Payer Self-pay 01-22-2023 Managed Care (unspecified) MEDIC ARE SUPPLEMENT [id number] 01-22-2023 Medicare [id number] 01-22-2023 Private Health Insurance [id number] .[id number] 01-22-2023 Medicare [id number] 01-22-2023 Private Health Insurance [facility] [id number] 04-23-2020 Unknown MMO MED MUTUAL S UPERMED PPO [id number] 04/23/2020- [id number] .[id number] 04-23-2020 Unknown [id number] 03-24-2019 Unknown 10-24-2017 Unknown ANTHEM SANDER BLUE/PREF/HMO/PPO [id number] 10/24/2017- [id number] .2.7.3.517494.315 10-24-2011 Unknown ANTHEM [id number] 1960 Unknown [id number] 2.16.840.1.100071.3.579 .2.1068 1958 Unknown [id number] 2.16.840.1.610529.3.579 .2.1068 1958 Unknown [id number] 2.16.840.1.483596.3.579 .2.1068 1958 Unknown [id number] 2.16.840.1.404214.3.579 .2.1068 1958 Unknown [id number] 2.16.840.1.597256.3.579 .2.1068 1958 Unknown [id number] 2.16.840.1.744981.3.579 .2.1069 1958 Unknown [id number] 2.16.840.1.192039.3.579 .2.1068 1958 Unknown [id number] 2.16.840.1.091163.3.579 .2.9 1958 Unknown [id number] 2.16.840.1.471198.3.579 .2.1068 1958 Unknown [id number] 2.16.840.1.247683.3.579 .2.1068 1958 Unknown [id number] 2.16840.1.920519.3.579 .2. 1958 Unknown [id number] 2.840.1.052537.3.579 .2.2 1958 Unknown [id number] 2.840.1.377561.3.579 .2. 1958 Unknown [id number] 2.840.1.724060.3.579 .2. 1958 Unknown [id number] 2.840.1.277656.3.579 .2. 1958 Unknown [id number] 2.840.1.706264.3.579 .2.903 1958 Unknown [id number] 2.840.1.185654.3.579 .2.90 1958 Unknown [id number] 2.16.840.1.012488.3.579 .2.90 1958 Unknown [id number] 2.16.840.1.006635.3.579 .2.594 1958 Unknown [id number] 2.16.840.1.506966.3.579 .2.903 1958 Unknown [id number] 2.16.840.1.341951.3.579 .2.90 1958 Unknown [id number] 2.16.840.1.683471.3.579 .2. 1958 Unknown [id number] 2.16.840.1.637706.3.579 .2. 1958 Unknown [id number] 2.16.840.1.312323.3.579 .2. 1958 Unknown [id number] 2.16.840.1.125754.3.579 .2. 1958 Unknown [id number] 2.16840.1.104531.3.579 .2. 1958 Unknown [id number] 2.16840.1.452058.3.579 .2. 1958 Unknown [id number] 2.840.1.915758.3.579 .2. 1958 Unknown [id number] 2.16840.1.387022.3.579 .2.3 1958 Unknown [id number] 2.840.1.161766.3.579 .2. 1958 Unknown [id number] 2.16840.1.244920.3.579 .2.1242 1958 Unknown [id number] 2.840.1.907624.3.579 .2.1242 1958 Unknown [id number] 2.16840.1.139806.3.579 .2.1242 1958 Unknown [id number] 2.16840.1.829645.3.579 .2.1242 1958 Unknown [id number] 2.16840.1.763978.3.579 .2.1242 1958 Unknown [id number] 2.16840.1.548459.3.579 .2.1242 1958 Unknown [id number] 2.16.840.1.772320.3.579 .2.1242 1958 Unknown [id number] 2.16.840.1.522840.3.579 .2.1242 1958 Unknown [id number] 2.16.840.1.956635.3.579 .2.1242 1958 Unknown [id number] 2.16.840.1.486859.3.579 .2.1242 1958 Unknown [id number] 2.16.840.1.789224.3.579 .2.1242 1958 Unknown [id number] 2.16.840.1.359509.3.579 .2.1242 1958 Unknown [id number] 2.840.1.315138.3.579 .2.1242 1958 Unknown [id number] 2.16840.1.143318.3.579 .2.1242 1958 Unknown [id number] 2.840.1.210225.3.579 .2.1242 1958 Unknown [id number] 2.16.840.1.420620.3.579 .2.1242 1958 Unknown [id number] 2.16840.1.037528.3.579 .2.1242 1958 Unknown [id number] 2.16840.1.217360.3.579 .2.1242 1958 Unknown [id number] 2.16.840.1.587107.3.579 .2.1242 1958 Unknown [id number] 2.16.840.1.124554.3.579 .2.1242 1958 Unknown [id number] 2.16.840.1.826342.3.579 .2.1242 1958 Unknown [id number] 2.16.840.1.715967.3.579 .2.1243 1958 Unknown [id number] 2.16.840.1.336790.3.579 .2.1242 1958 Unknown [id number] 2.16.840.1.074829.3.579 .2.1243 1958 Unknown [id number] 2.16.840.1.901970.3.579 .2. 1958 Unknown [id number] 2.16.840.1.833970.3.579 .2. 1958 Unknown [id number] 2.840.1.419226.3.579 .2. 1958 Unknown [id number] 2.840.1.783384.3.579 .2. 1958 Unknown [id number] 2.840.1.047475.3.579 .2. 1958 Unknown [id number] 2.16840.1.842679.3.579 .2. 1958 Unknown [id number] 2.0.1.488934.3.579 .2. 1958 Unknown [id number] 2.840.1.173965.3.579 .2. 1958 Unknown [id number] 2.840.1.252793.3.579 .2. 1958 Unknown [id number] 2.16.840.1.402143.3.579 .2. 1958 Unknown [id number] 2.16.840.1.609262.3.579 .2. 1958 Unknown [id number] 2.16.840.1.429843.3.579 .2. 1958 Unknown [id number] 2.16840.1.351887.3.579 .2.983 1958 Unknown [id number] 2.16.840.1.671063.3.579 .2.983 1958 Unknown [id number] 2.16.840.1.740865.3.579 .2.983 1958 Unknown [id number] 2.16.840.1.211741.3.579 .2.983 1958 Unknown [id number] 2.16.840.1.621906.3.579 .2.983 1958 Unknown [id number] 2.16.840.1.504682.3.579 .2.98 1958 Unknown [id number] 2.16.840.1.942487.3.579 .2.983 1958 Unknown [id number] 2.16.840.1.412930.3.579 .2.98 1958 Unknown [id number] 2.16.840.1.880760.3.579 .2.983 1958 Unknown [id number] 2.16.840.1.107180.3.579 .2.983 1958 Unknown [id number] 2.16.840.1.029809.3.579 .2.983 1958 Unknown [id number] 2.16.840.1.719887.3.579 .2.983 1958 Unknown [id number] 2.16.840.1.841477.3.579 .2.983 1958 Unknown [id number] 2.16.840.1.278442.3.579 .2.983 1958 Unknown [id number] 2.16.840.1.899068.3.579 .2.983 1958 Unknown [id number] 2.16.840.1.373100.3.579 .2.983 1958 Unknown [id number] 2.16.840.1.690504.3.579 .2.983 1958 Unknown [id number] 2.16.840.1.098304.3.579 .2. 1958 Unknown [id number] 2.16.840.1.797522.3.579 .2. 1958 Unknown [id number] 2.16.840.1.207354.3.579 .2. 1958 Unknown [id number] 2.16.840.1.501618.3.579 .2. 1958 Unknown [id number] 2.16.840.1.138299.3.579 .2. 1958 Unknown [id number] 2.16.840.1.792315.3.579 .2. 1958 Unknown [id number] 2.16.840.1.076708.3.579 .2. 1958 Unknown [id number] 2.16.840.1.226197.3.579 .2. 1958 Unknown [id number] 2.16.840.1.744715.3.579 .2. 1958 Unknown [id number] 2.16.840.1.157986.3.579 .2. 1958 Unknown [id number] 2.16.840.1.753058.3.579 .2. 1958 Unknown [id number] 2.16.840.1.441738.3.579 .2.98 1958 Unknown [id number] 2.16.840.1.187151.3.579 .2. 1958 Unknown [id number] 2.16.840.1.817455.3.579 .2.98 1958 Unknown [id number] 2.16.840.1.117843.3.579 .2.983 1958 Unknown [id number] .840.1.486301.3.579 .2.983 1958 Unknown [id number] 2.840.1.309268.3.579 .2.983 Medicare supplementa l policy (as second payer) [employer] 1.2.840.992314.1.13.385 .2.7.9.546831.310.315 Private Health Insurance [facility] [id number] Private Health Insurance [id number] Unknown [id number] 2.840.1.315815.3.579 .2.462 Unknown [id number] 2.840.1.831371.3.579 .2.462 Unknown [id number] 2.840.1.303626.3.579 .2.462 Unknown [id number] 2.840.1.007985.3.579 .2.462 Unknown [id number] 2.840.1.757803.3.579 .2.462 Unknown [id number] 2.16840.1.360320.3.579 .2.462 Unknown [id number] 2.16840.1.864495.3.579 .2.462 Unknown [id number] 2.16840.1.791491.3.579 .2.462 Unknown [id number] 2.840.1.819176.3.579 .2.462 Unknown [id number] 2.16.840.1.826574.3.579 .2.462 Unknown [id number] 2.16.840.1.487290.3.579 .2.462 Unknown [id number] 2.16.840.1.880782.3.579 .2.462 Unknown [id number] 2.16.840.1.034398.3.579 .2.462 Unknown [id number] 2.16.840.1.472300.3.579 .2.462 Unknown [id number] 2.16.840.1.971671.3.579 .2.462 Unknown [id number] 2.16.840.1.572406.3.579 .2.462 Unknown [id number] 2.16.840.1.717492.3.579 .2.462 Unknown [id number] 2.16.840.1.388271.3.579 .2.462 Unknown [id number] 2.16.840.1.301093.3.579 .2.462 Unknown [id number] 2.16.840.1.902199.3.579 .2.462 Unknown [id number] 2.16.840.1.255473.3.579 .2.462 Unknown [id number] 2.16.840.1.205101.3.579 .2.462 Unknown [id number] 2.16.840.1.340785.3.579 .2.462 Social History Date Type Detail Facility Start: 03-10-2020 End: 12-30-2021 Alcohol Use 0.75 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 Work Phone: Comment on above: now rarely coffee 3 cups qd sod a rare Light 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 [facility] Work Phone: Tobacco Use: Remotely quit to bacco use. [facility] Work Phone: Start: 02-13-2021 End: 02-05-2023 Tobacco smoking status NHIS Never smoker [facility] Start: 02-13-2021 End: 05-10-2025 Tobacco use and exposure Never used [facility] Start: 02-13-2021 End: 08-09-2025 Alcohol intake Current drinker of alcohol (finding) [facility] Start: 02-13-2021 Alcohol Comment rarely [facility] Start: 1960 Sex Assigned At Not on file [facility] Start: 01-23-2022 End: 02-03-2023 Exposure to SARS-CoV-2 (event) Not sure [facility] Start: 12-30-2021 End: 05-10-2025 Tobacco smoking status MEIS Ex-smoker [facility] Start: 04-23-1978 End: 04-23-2013 History of tobacco use Current smoker [facility] Start: 04-23-1978 End: 04-23-2013 History of tobacco use Cigarette Smoker [facility] Start: 10-07-2021 History SDOH Alcohol Comment Hx ETOH abuse,and now 2 beers weekly [facility] Start: 06-07-2022 End: 06-17-2022 Alcohol intake Ex-drinker (finding) [facility] Start: 09-28-2022 End: 05-22-2025 Alcohol intake Current non-drinker of alcohol (finding) [facility] Start: 1960 Sex Assigned At Female [facility] Start: 06-11-2015 End: 06-11-2015 Tobacco smoking consumption unknown [facility] Start: 11-10-2022 History SDOH Financial 5 [facility] Start: 11-10-2022 History SDOH Food Worry 1 [facility] Start: 11-10-2022 History SDOH Transport Med 2 [facility] Start: 03-10-2020 End: 04-12-2023 Tobacco use panel [facility] Work Phone: Start: 10-24-2023 PHQ-9 Score 17 [facility] Work Phone: Start: 04-12-2023 Alcohol Comment occassionally drinks beer [facility] Start: 12-11-2021 Gender identity Identifies as female gender (finding) [facility] (I/We) worried whether (my/our) food would run out before (I/we) got money to buy more. Never true [facility] Work Phone: In the past 12 months, was there a time when you were not able to pay the mortgage or rent on time? No [facility] Work Phone: Start: 03-24-2023 Gender identity Choose not to disclo se [facility] Start: 10-31-2023 Alcohol Comment Hx ETOH abuse [facility] Start: 01-06-2024 Sexual orientation Heterosexual (fin ding) [facility] Start: 08-09-2014 Sex Female (finding) [facility] Start: 04-05-2025 Tobacco smoking status NHIS Smokes tobacco daily [facility] Start: 04-05-2025 Alcohol Comment daily wine and rum [facility] Work Phone: How hard is it for you to pay for the very basics like food, housing, medical care, and heating Somewhat hard [facility] History of tobacco use Passive smoker [facility] Medical Equipment Procedure Code Equipment Code Equipment Origin al Text Equipment Identifier Dates 11mm X 45mm Fire bird Si Screw [id number]_[facility] Start: 06-17-2022 Jan Bn Smpx P Ra dpq Fd Strl - [id number] Start: 05-19-2015 Comment on above: Description: SIMPLEX P BONE CEMENT Okg-Wk-R-Kind Implant - [id number]_[facility] Start: 10-11-2014 Comment on above: Description: ACCUFIL L SYN CALC PHOSPHATE BONE SUBSTITUTE 5CC Fem Psn Ps Por C cr Std Sz8 R - [id number] Start: 05-19-2015 Comment on above: Description: FEMUR C EMENTED POSTERIOR STABILIZED Tib Psn Por 2 Pe g Sz E R - [id number] Start: 05-19-2015 Comment on above: Description: NATURAL TIBIA Port Implantable Power Port 6fr - [id number] Start: 01-28-2012 Comment on above: Description: Powerpo rt Advantage Fit Bl ue System Transvaginal Mid-Urethral Sling [id number] Start: 08-31-2022 Device 24mm Watc hman Flex - [id number] Start: 11-24-2023 Closure Perclose Prostyle - [id number]?, [id number]_[facility] FDA Start: 11-24-2023 System Watchman Flex Procedure Charge - [id number] Start: 11-24-2023 11mm X 60mm Fire bird Si Screw [id number] Start: 06-17-2022 11mm X 50mm Fire bird Si Screw [id number] Start: 06-17-2022 Orthofix Si Fusi on System Sterile Screw [id number] Start: 05-03-2024 Comment on above: Description: Incisio n to right hip for site of sacroiliac joint Orthofix Si Fusi on System Sterile Screw [id number] Start: 05-03-2024 Comment on above: Description: SITE IS RIGHT SACROILIAC JOINT BUT WITH INCISION TO THE RIGHT HIP Orthofix Si Fusi on System Sterile Screw [id number] Start: 05-03-2024 Comment on above: Description: SITE IS RIGHT SACROILIAC JOINT WITH INCISION TO THE RIGHT HIP Art Srfc Fem Ps 6-9cd 11mm R - [id number] Start: 05-19-2015 Comment on above: Description: ARTICUL AR SURFACE FIXED BEARING POSTERIOR STABILIZED Attune Patella Medialized Dome [id number] Start: 11-12-2024 Attune Knee Syst em Revision Tibial Base Fixed Bearing [id number] Start: 11-12-2024 Attune Femoral Cruciate Retaining Narrow [id number] Start: 11-12-2024 Palacos R 1x40 [id number] Start: 11-12-2024 Attune Knee Syst em Tibial Insert Fixed Bearing Cruciate Retaining [id number] Start: 11-12-2024 Goals Date Patient Goal Desired Activity /State Personal health goal Comment on above: Formatting of this n ote might be different from the original. Therapy Problem List: SI fusion pre-op session needed today. Pain/spasm in the left LB and GSN areas. Decreased AROM at the low back Difficulty with change of positions Static standing bothersome for any length of time. Gait/steps usage is effected mdaison over the left lower extremity with mild limp. Forward flexed hip and low back posture in standing. Limited in house work/leisure/ADL activity. In and out of car reported painful and slowed. So is in out bed. Therapy Goals: Pre-op SI fusion education and training. PT covered brace donning and doffing with mimic brace as pt forgot hers. Bed mobility and no brace on while in bed. Educated in rising and sitting properly to protect back with brace on. Also did gait education with WBAT LLE FWW (to mimic her rollator) leg to keep fusion left SI safe and stable. Also gait training with SPC as well. Educated in SI anatomy with IFUSE model. Educated on post-op exercises with brochure for review. Brochure given to patient for recall. Skilled Nursing Goals: Independent core exercises for skilled nursing use to prevent reoccurrence. Return to normal activity of house work/leisure/ADLs with post op therapy as ordered by surgeon if needed. Personal health goal Comment on above: Formatting of this n ote might be different from the original. Therapy Problem List: SI fusion pre-op session needed today. Pain/spasm in the right LB areas. Decreased AROM at the low back with pain Difficulty with change of positions and sleeping on the right side. Static standing bothersome for greater than 5 mins length of time. Gait/steps usage is effected madison over the right lower extremity Forward flexed hip and low back posture in standing. Limited in house work/leisure/ADL activity. In and out of car reported painful and slowed. So is in out bed. Therapy Goals: Pre-op SI fusion education and training. Short term: Pt will demonstrate independence and understanding with HEP and safety precautions to prepare for surgery. (Met today) Pt will demonstrate competence with gait/step/curb training (as appropriate) and bed mobility to prepare for safety after surgery. (Met today) Software Design Manager Goals: Independent core exercises for skilled nursing use to prevent reoccurrence. Return to normal activity of house work/leisure/ADLs with post op therapy as ordered by surgeon if needed. Comment on above: Formatting of this n ote might be different from the original. Therapy Problem List: SI fusion pre-op session needed today. Pain/spasm in the left LB and GSN areas. Decreased AROM at the low back Difficulty with change of positions Static standing bothersome for any length of time. Gait/steps usage is effected madison over the left lower extremity with mild limp. Forward flexed hip and low back posture in standing. Limited in house work/leisure/ADL activity. In and out of car reported painful and slowed. So is in out bed. Therapy Goals: Pre-op SI fusion education and training. PT covered brace donning and doffing with mimic brace as pt forgot hers. Bed mobility and no brace on while in bed. Educated in rising and sitting properly to protect back with brace on. Also did gait education with WBAT LLE FWW (to mimic her rollator) leg to keep fusion left SI safe and stable. Also gait training with SPC as well. Educated in SI anatomy with IFUSE model. Educated on post-op exercises with brochure for review. Brochure given to patient for recall. 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 Return to normal activity of house work/leisure/ADLs with post op therapy as ordered by surgeon if needed. 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 [C-SSRS] [facility] Work Phone: 11-12-2024 Are you deaf, or do you have serious difficulty hearing No 11/12/2024 10:00 AM Annalee Chopra RN No [facility] 11-12-2024 Are you blind, or do you have serious difficulty seeing, even when wearing glasses Yes 11/12/2024 10:00 AM Annalee Chopra, REINIER Yes [facility] 11-12-2024 Do you have serious difficulty walking or climbing stairs No 11/12/2024 10:00 AM Annalee Chopra RN No [facility] 11-12-2024 Do you have difficul ty dressing or bathing No 11/12/2024 10:00 AM Annalee Chopra RN No [facility] 11-12-2024 Because of a physica l, mental, or emotional condition, do you have difficulty doing errands alone such as visiting a physician's office or shopping No 11/12/2024 10:00 AM Annalee Chopra RN No [facility] 11-12-2024 Within the last year , have you been humiliated or emotionally abused in other ways by your partner or ex-partner? No 11/12/2024 10:00 AM Annalee Chopra RN No [facility] 11-12-2024 Within the last year , have you been afraid of your partner or ex-partner? No 11/12/2024 10:00 AM Annalee Chopra RN No [facility] 11-12-2024 Within the last year , have you been raped or forced to have any kind of sexual activity by your partner or ex-partner? No 11/12/2024 10:00 AM Annalee Chopra RN No [facility] 11-12-2024 Within the last year , have you been kicked, hit, slapped, or otherwise physically hurt by your partner or ex-partner? No 11/12/2024 10:00 AM Annalee Chopra RN No [facility] 11-12-2022 Are you deaf, or do you have serious difficulty hearing No 11/12/2022 2:58 PM Vero Arriaga RN No [facility] 11-12-2022 Are you blind, or do you have serious difficulty seeing, even when wearing glasses No 11/12/2022 2:58 PM Vero Arriaga RN No [facility] 11-12-2022 Do you have serious difficulty walking or climbing stairs No 11/12/2022 2:58 PM Vero Arriaga RN No [facility] 11-12-2022 Do you have difficul ty dressing or bathing No 11/12/2022 2:58 PM Vero Arriaga RN No [facility] 11-12-2022 Because of a physica l, mental, or emotional condition, do you have difficulty doing errands alone such as visiting a physician's office or shopping No 11/12/2022 2:58 PM Vero Arriaga RN No [facility] Mental Status Date Assessment Result Facility 11-12-2024 Because of a physica l, mental, or emotional condition, do you have serious difficulty concentrating, remembering, or making decisions No 11/12/2024 10:00 AM Annalee Chopra RN [facility] 08-29-2023 Cognitive function Awake;Alert;A ppropriate;Fol lows Commands [facility] Work Phone: 08-28-2023 Cognitive function Level Of Cons ciousness Awake;Alert;Appropriate;Fol lows Commands [facility] Work Phone: 08-27-2023 Cognitive function Level Of Cons ciousness Awake;Alert;Appropriate;Fol lows Commands [facility] Work Phone: 08-26-2023 Cognitive function Awake;Alert;A ppropriate;[facility] lows Commands [facility] Work Phone: 08-25-2023 Cognitive function Awake;Alert;A ppropriate;[facility] lows Commands [facility] Work Phone: 08-24-2023 Cognitive function Voice/Name [facility] Work Phone: 08-23-2023 Cognitive function Voice/Name [facility] Work Phone: 08-22-2023 Cognitive function Voice/Name [facility] Work Phone: 08-19-2023 Cognitive function Awake;Alert;A ppropriate;[facility] lows Commands [facility] Work Phone: 08-17-2023 Cognitive function Awake;Alert;A ppropriate;[facility] lows Commands [facility] Work Phone: 08-16-2023 Cognitive function Voice/Name [facility] Work Phone: 08-15-2023 Cognitive function Awake;Alert;A ppropriate;[facility] lows [facility] Work Phone: 08-12-2023 Cognitive function Voice/Name [facility] Work Phone: 08-10-2023 Cognitive function Voice/Name [facility] Work Phone: 08-09-2023 Cognitive function Voice/Name [facility] Work Phone: 08-08-2023 Cognitive function Awake;Alert;A ppropriate;Fol lows Commands [facility] Work Phone: 08-06-2023 Cognitive function Level Of Cons ciousness Awake;Alert;Appropriate;Fol lows Commands [facility] Work Phone: 08-05-2023 Cognitive function Voice/Name [facility] Work Phone: 11-12-2022 Because of a physica l, mental, or emotional condition, do you have serious difficulty concentrating, remembering, or making decisions No 11/12/2022 2:58 PM Vero Arriaga, REINIER [facility] Clinical Notes 05-19-2015 to 08-09-2025 Katina William APRN-[facility] - 08/09/2025 9:45 AM EDTNasoco Thibodeaux - 08/09/2025 9:45 AM EDTPatient Marshall Joe CNP - 07/09/2025 11:30 AM EDBenton Burris - 07/09/2025 11:30 AM EDT Note Date & Type Note Facility 08-09-2025 History of Presen t illness Narrative HPI: Elena Mcgill [place] [facility]ents for evaluation and treatment of low back pain. Pain is described as Aching and is currently rated 4/10, and at it's most severe is rated 10/10. Pain is increased with walking and is relieved by relaxation and pain medication. The patient denies numbness/tingling . she denies weakness . The patient denies to falls within the last 3 months. The patient denies bowel/bladder incontinence. Patient denies tobacco use. Audit-C Questionnaire How often do you have a drink containing alcohol? (0) never 2. How many standard drinks containing alcohol do you have on a typical day? (0) 1 or 2 3. How often do you have six or more drinks on one occasion? (0) never *A score of 3 or more in women or 4 or more in men is a positive score that requires education. Current Outpatient Medications Medication Sig Albuterol (Ventolin HFA) 108 (90 Base) MCG/ACT Aero Soln inhaler Inhale 2 puffs every 6 hours as needed for Wheezing. Allopurinol 100 MG tablet Take 1 tablet by mouth daily. Aspirin (SB Low Dose ASA EC) [address] tablet Take 1 tablet by mouth daily with breakfast. OTC baclofen 10 MG tablet Take 1/2 tablet to 1 tablet by mouth 3x daily as needed for muscle spasms. buPROPion (Wellbutrin XL) 300 MG tablet XL Take 1 tablet by mouth every morning before breakfast. Cancel previous refills carveDILOL (Coreg) 12.5 MG tablet Take 1 tablet by mouth 2 times daily with meals. Cancel previous refills Cetirizine 10 MG tablet Take 1 tablet by mouth daily. OTC CUSTOM MEDICATION The patient requires a Handicap placard for 5 years, as she is unable to walk more than 200 feet without stopping to rest, due to her medical conditions. cyanocobalamin 1000 MCG tablet Chew 1 tab q daily. Cancel previous refills Diazepam 5 MG tablet Take 1 tablet by mouth 3 times daily. Trial of med Escitalopram (Lexapro) 10 MG tablet Take 1 tablet by mouth daily. Cancel previous refills Evolocumab (Repatha SureClick) 140 MG/ML Solution Auto-injector injection Inject 1 mL under the skin every 14 days. SATURDAYS fenofibrate 160 MG tablet Take 1 tablet by mouth daily. Cancel previous refills fluticasone (Flonase Allergy Relief) 50 MCG/ACT Suspension nasal spray 2 sprays by Nasal route daily as needed. OTC Folic acid 1 MG tablet Take 1 tablet by mouth daily. Cancel previous refills Lisinopril 5 MG tablet Take 1 tablet by mouth daily. Cancel previous refills magnesium oxide 400 (240 Mg) MG Take 2 tablets by mouth 2 times daily with meals. omega-3 acid ethyl esters 1 g capsule Take 2 capsules by mouth 2 times daily. Cancel previous refills Pantoprazole (Protonix) [address] tablet DR Take 1 tablet by mouth 2 times daily (take before meals). Cancel previous refills traZODone 100 MG tablet Take 1 tablet by mouth at bedtime. Cancel previous refills triamterene-hydrochlorothiazide (Dyazide) 37.5-25 MG per capsule Take 1 capsule by mouth daily. Cancel previous refills Review of Systems: General: Denies fevers, chills, or night sweats Abdominal: Denies nausea, vomiting, diarrhea Respiratory: Denies cough, sputum production Genitourinary: Denies dysuria or frequency Physical Examination: Vitals: 08/09/25 0953 BP: 154/76 Pulse: 60 SpO2: 95% Constitutional The patient is awake, alert, well developed, well nourished and well groomed. The patient is pleasant and cooperative. The patient is a good historian and is very helpful with the history and physical examination. No lesions noted on face. Neurologic Cranial Nerves 2-12 are grossly intact. The gait is abnormal. Sensory testing for light touch is grossly intact. Psychiatric The patient is oriented to person, place, and time. Speech is fluent and words are clear. Thought processes are coherent, insight is good. There are no obsessive, compulsive, phobic or delusional thoughts; there are no illusions or hallucinations. The patient's fund of knowledge: awareness of current events and past history is appropriate for age. The patient's higher cognitive functions are intact. The patient's mood is neutral and the affect appropriate; there are no loose associations. MSK L-Spine Assessment Lumbar Radiculopathy: Negative Facet Tenderness: Bilateral Facet Loading: Bilateral Sacroiliac Joint Maneuvers:Bilateral-Maxwell, -thigh thrust, -yeomen's test Intermittent moderate to severe bilateral flank pain. Notes left superior cluneal nerve pain today The patient has Moderate Limitation difficulty transitioning from sitting to standing. The patient has an antalgic gait. The lumbar spine demonstrates a flexion biased curve. Palpation reveals tenderness over the Bilateral lumbar spine. Lumbosacral range of motion is limited in flexion, extension, Bilateral rotation, Bilateral lateral bend. There is no deformity to the lumbosacral spine. There is no abnormality in muscle tone in the lumbosacral spine. Trigger points are not present in the lumbosacral spine musculature. Muscle strength is 5/5 in the bilateral lower extremities. 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 Myofascial pain M79.18 3. Lumbar spondylosis M47.816 4. Spinal stenosis, lumbar region, with neurogenic claudication M48.062 65 y.o. female w/PMHx of bilateral SIJ fusion with Dr Sigala, hx of alcohol abuse, who presents for follow up. Injections: previous injections of SIJ prior to fusion with Dr Stephens Meds: on valium 5mg TID PRN, and trazadone Imagin05/2025 MRI lumbar: There are 5 nonrib-bearing lumbar vertebrae. Unchanged alignment of the lumbar spine. Vertebral body heights are maintained. The bone marrow signal is somewhat heterogeneous, favoring to represent red marrow reconversion. Modic type I changes are present at the L4-L5 level. Mild edema is noted in the left L5-S1 facet with a small joint effusion, potentially reflecting acute facet arthropathy. Otherwise, no acute or aggressive osseous abnormality is evident. The visualized bony pelvis appears congruent with partially imaged bilateral sacroiliac joint fusion hardware. Limited evaluation of the abdominopelvic viscera is without acute or suspicious abnormality. Simple appearing right renal cyst is present and unchanged. L1-L2: No focal disc herniation identified. No spinal canal or neural foraminal stenosis. L2-L3: Broad-based disc bulge with superimposed broad-based left foraminal lateral protrusion. Mild to moderate spinal canal stenosis. Moderate bilateral neural foraminal stenosis, left greater than right secondary to disc osteophyte complex and facet arthropathy. This has progressed from prior study. L3-L4: Mild broad-based disc bulge with mild spinal canal stenosis. Moderate bilateral neural foraminal stenosis, right greater than left secondary to disc osteophyte complex and facet arthropathy. L4-L5: Broad-based disc bulge with probable small central disc extrusion with superior migration. Moderate spinal canal stenosis. Moderate bilateral neural foraminal stenosis secondary to disc osteophyte complex and facet arthropathy. This has not significantly changed. L5-S1: Mild broad-based disc bulge without spinal canal stenosis. More focal broad-based left foraminal lateral protrusion. Moderate left and mild right neural foraminal stenosis. This is unchanged. 05/06/25 lumbar xray There are 5 lumbar vertebral segments. The visualized osseous structures are osteopenic. There is no acute osseous lesion or fracture. There is grade 1 retrolisthesis of L2 on L3 and grade 1 anterolisthesis of L5 on S1. No instability is detected on flexion or extension. These changes are stable in the interval since the prior study There is a normal lumbar lordosis There is no abnormal curvature. There is a stable mild compression fracture at L2. There is mild loss of intervertebral disc height throughout the entire lumbar spine. This is most pronounced at the L4-L5 level where there are mild degenerative sclerotic endplate changes and small osteophytes. There are degenerative facet joint changes are most pronounced in the lower lumbar spine. There has been surgical fusion of the bilateral SI joints. The fusion hardware appears intact and unchanged. The visualized soft tissues are unremarkable. There is calcified atherosclerotic change of the abdominal aorta Referrals/consults: Dr Sigala PT: completed 6 weeks of PT at [facility] 03/17 without benefit. Labs: 04/04/25 Cr 0.65 eGFR >90 The patient has had over 3 months of moderate to severe low back pain with functional impairment and inadequate response to conservative care including NSAIDS (unless there are contraindication such as concurrent blood thinners), multiple oral or topical pain medications, and home exercise program/physical therapy. Patient has completed >6 weeks of guided home exercise program and/or formal physical therapy program without relief of their symptoms. I have reviewed the imaging of the Lumbar MRI and no red flags were identified. The Oswestry Disability Index was completed, and the patient scored a 50%. The patient noted the following: the patient has moderate or greater pain, the patient has pain that limits and/or needs help to manage their personal care, pain prevents from lifting heavy weights, pain prevents patient from walking 0.5 mile or less, the patient has pain that prevents them from standing for 60 minutes or less, Pain limits the patient to 6 hours of sleep or less, the patient's social life is restricted by pain, and pain restricts journeys of 1 hour or less Plan: - since last visit pt was evalauted by Dr Sigala who has cleraed her post bilateral SIJ fusion. Recommended pt consider right superior cluneal nerve block with our office. Pt not interested in interventional therapy at this time. We reviewed the concept of nerve blocks and RFAs, I do not have specific education on cluneal nerve blocks but have placed information in AVS on lumbar medial branch blocks/RFAs. Pt undergoing decompression therapy with [facility], finding benefit - continue NNCP due to chronic benzos and hx alcohol abuse - continue follow-up with Dr Sigala as planned - continue baclofen 5-10mg TID PRN spasms, she knows to not take this within 6hrs of taking her valium. She does not take her valium regularly TID -follow-up 2 months, if pain well controlled can reschedule to 6 month follow-up as discussed with pt I have checked an [place] report on this patient today and there are no aberrancies noted in the prescribing history. A drug screen was completed and reviewed within the last year, and if there has not been a drug screen completed we ordered one today to monitor higher risk, state monitored pain medication use. Patient had a positive alcohol screen today. Recommended maximum alcohol consumption for average adult male is 2 drinks per day, and average adult female is 1 drink per day. No amount of alcohol is considered safe, however, and there is an increased risk of adverse events and side effects from concurrent use of sedating medications including respiratory depression. Patient was advised that NO alcohol should be consumed if they are using prescribed opioid medications, and that resources are available to help reduce or quit alcohol use completely. YOAN Wagner HPI: Elena Mcgill [place] [facility] for evaluation and treatment of low back pain. Pain is described as Aching and is currently rated 4/10, and at it's most severe is rated 10/10. Pain is increased with walking and is relieved by relaxation and pain medication. The patient denies numbness/tingling . she denies weakness . The patient denies to falls within the last 3 months. The patient denies bowel/bladder incontinence. Patient denies tobacco use. Audit-C Questionnaire How often do you have a drink containing alcohol? (0) never 2. How many standard drinks containing alcohol do you have on a typical day? (0) 1 or 2 3. How often do you have six or more drinks on one occasion? (0) never *A score of 3 or more in women or 4 or more in men is a positive score that requires education. Current Outpatient Medications Medication Sig Albuterol (Ventolin HFA) 108 (90 Base) MCG/ACT Aero Soln inhaler Inhale 2 puffs every 6 hours as needed for Wheezing. Allopurinol 100 MG tablet Take 1 tablet by mouth daily. Aspirin (SB Low Dose ASA EC) [address] tablet Take 1 tablet by mouth daily with breakfast. OTC baclofen 10 MG tablet Take 1/2 tablet to 1 tablet by mouth 3x daily as needed for muscle spasms. buPROPion (Wellbutrin XL) 300 MG tablet XL Take 1 tablet by mouth every morning before breakfast. Cancel previous refills carveDILOL (Coreg) 12.5 MG tablet Take 1 tablet by mouth 2 times daily with meals. Cancel previous refills Cetirizine 10 MG tablet Take 1 tablet by mouth daily. OTC CUSTOM MEDICATION The patient requires a Handicap placard for 5 years, as she is unable to walk more than 200 feet without stopping to rest, due to her medical conditions. cyanocobalamin 1000 MCG tablet Chew 1 tab q daily. Cancel previous refills Diazepam 5 MG tablet Take 1 tablet by mouth 3 times daily. Trial of med Escitalopram (Lexapro) 10 MG tablet Take 1 tablet by mouth daily. Cancel previous refills Evolocumab (Repatharam Buckner) 140 MG/ML Solution Auto-injector injection Inject 1 mL under the skin every 14 days. SATURDAYS fenofibrate 160 MG tablet Take 1 tablet by mouth daily. Cancel previous refills fluticasone (Flonase Allergy Relief) 50 MCG/ACT Suspension nasal spray 2 sprays by Nasal route daily as needed. OTC Folic acid 1 MG tablet Take 1 tablet by mouth daily. Cancel previous refills Lisinopril 5 MG tablet Take 1 tablet by mouth daily. Cancel previous refills magnesium oxide 400 (240 Mg) MG Take 2 tablets by mouth 2 times daily with meals. omega-3 acid ethyl esters 1 g capsule Take 2 capsules by mouth 2 times daily. Cancel previous refills Pantoprazole (Protonix) [address] tablet DR Take 1 tablet by mouth 2 times daily (take before meals). Cancel previous refills traZODone 100 MG tablet Take 1 tablet by mouth at bedtime. Cancel previous refills triamterene-hydrochlorothiazide (Dyazide) 37.5-25 MG per capsule Take 1 capsule by mouth daily. Cancel previous refills Review of Systems: General: Denies fevers, chills, or night sweats Abdominal: Denies nausea, vomiting, diarrhea Respiratory: Denies cough, sputum production Genitourinary: Denies dysuria or frequency documented in this encounter [facility] 08-09-2025 Instructions Shalonda Ward LPN - 08/09/2025 9:45 AM EDT Images from the original note were not included. Nerve Block (Injection) Overview: Nerves are everywhere in our body. These nerves send signals to the brain, including pain signals and sensory information. Sometimes these signals are painful, caused by injury, degeneration, a condition, or a disease. A nerve block may allow a damaged nerve to heal, provide pain relief, or help identify a more specific cause of pain. Preparation: The patient will lay or sit in a comfortable position to best expose the area to be injected. Pillows may be used for the patient s comfort. The area is cleaned with an antiseptic solution. Local anesthetic is used to numb the skin and tissue around the areas to be injected. Injection: A fluoroscopic x-ray device or ultrasound is used to locate the nerves. An injection consisting of local anesthetic to numb the nerve with or without a steroid to treat inflammation is injected around the nerve/nerves. A bandaid may be placed at the injection site. The procedure may be done in the procedure room or in the office, depending on the nerve to be injected. Radiofrequency Treatment Radiofrequency Treatment is a procedure using a specialized machine to interrupt nerve conduction on a semi-permanent basis. The nerves are usually blocked for a period as short as 3 months or as long as 18 months. The procedure disrupts nerve conduction, and it may in turn reduce pain and other related symptoms. Approximately 70%-80% of patients will get good block of the intended nerve. This should help relieve that part of the pain that the blocked nerve controls. Sometimes after a nerve is blocked, it becomes clear that there is pain from other areas as well. How is the procedure performed? The procedure is done as an outpatient at our surgical suite under x-ray guidance to confirm needle placement. Since the nerves cannot be seen on x-ray, the needles are positioned using bony landmarks. The area to be injected is cleansed with an antiseptic solution to prevent infection. A local anesthetic is injected to numb the skin. A special cannula is advanced under x-ray to the area of the nerve. When the needle is in good position, electrical stimulation is done before any treatment. This treatment may produce a buzzing or tingling sensation. You may also feel your muscles jump. The tissues surrounding the needle tip are then heated when current is passed using the radiofrequency machine. This numbs the nerves. What should I do and expect after the procedure? We advise that patients take it easy for a day or so after the procedure. You may want to apply ice to the affected area to decrease any inflammation. Perform your normal activities as tolerated. Initially there may be muscle soreness for up to a week afterward. Ice packs will usually control this discomfort. It may take up to three weeks to notice the full benefit of this procedure. What are the risks and side effects? With any procedure there are risks, side effects and the possibility of complications. These vary depending on where the procedure was done. Whenever the integrity of the skin is broken there is a potential for infection and soreness. Bleeding, headaches and nerve damage are also possible complications of the procedure. However, all complications are extremely rare. documented in this encounter [facility] 07-09-2025 History of Presen t illness Narrative HPI: Elena [place] Presents for evaluation and treatment of low back pain. Pain is described as Aching and is currently rated 6/10, and at it's most severe is rated 8/10. Pain is increased with standing and walking and is relieved by relaxation and lying down. The patient denies numbness/tingling . she denies weakness . The patient denies to falls within the last 3 months. The patient denies bowel/bladder incontinence. Patient denies tobacco use. Audit-C Questionnaire How often do you have a drink containing alcohol? (0) never 2. How many standard drinks containing alcohol do you have on a typical day? (0) 1 or 2 3. How often do you have six or more drinks on one occasion? (0) never *A score of 3 or more in women or 4 or more in men is a positive score that requires education. Current Outpatient Medications Medication Sig Albuterol (Ventolin HFA) 108 (90 Base) MCG/ACT Aero Soln inhaler Inhale 2 puffs every 6 hours as needed for Wheezing. Allopurinol 100 MG tablet Take 1 tablet by mouth daily. Aspirin (SB Low Dose ASA EC) [address] tablet Take 1 tablet by mouth daily with breakfast. OTC buPROPion (Wellbutrin XL) 300 MG tablet XL Take 1 tablet by mouth every morning before breakfast. Cancel previous refills carveDILOL (Coreg) 12.5 MG tablet Take 1 tablet by mouth 2 times daily with meals. Cancel previous refills Cetirizine 10 MG tablet Take 1 tablet by mouth daily. OTC CUSTOM MEDICATION The patient requires a Handicap placard for 5 years, as she is unable to walk more than 200 feet without stopping to rest, due to her medical conditions. cyanocobalamin 1000 MCG tablet Chew 1 tab q daily. Cancel previous refills Diazepam 5 MG tablet Take 1 tablet by mouth 3 times daily. Trial of med Escitalopram (Lexapro) 10 MG tablet Take 1 tablet by mouth daily. Cancel previous refills Evolocumab (Repatha SureClick) 140 MG/ML Solution Auto-injector injection Inject 1 mL under the skin every 14 days. SATURDAYS fenofibrate 160 MG tablet Take 1 tablet by mouth daily. Cancel previous refills fluticasone (Flonase Allergy Relief) 50 MCG/ACT Suspension nasal spray 2 sprays by Nasal route daily as needed. OTC Folic acid 1 MG tablet Take 1 tablet by mouth daily. Cancel previous refills Lisinopril 5 MG tablet Take 1 tablet by mouth daily. Cancel previous refills magnesium oxide 400 (240 Mg) MG Take 2 tablets by mouth 2 times daily with meals. omega-3 acid ethyl esters 1 g capsule Take 2 capsules by mouth 2 times daily. Cancel previous refills Pantoprazole (Protonix) [address] tablet DR Take 1 tablet by mouth 2 times daily (take before meals). Cancel previous refills traZODone 100 MG tablet Take 1 tablet by mouth at bedtime. Cancel previous refills triamterene-hydrochlorothiazide (Dyazide) 37.5-25 MG per capsule Take 1 capsule by mouth daily. Cancel previous refills Review of Systems: General: Denies fevers, chills, or night sweats Abdominal: Denies nausea, vomiting, diarrhea Respiratory: Denies cough, sputum production Genitourinary: Denies dysuria or frequency Physical Examination: Vitals: 07/09/25 1234 BP: 138/60 Pulse: 67 SpO2: 98% Constitutional The patient is awake, alert, well developed, well nourished and well groomed. The patient is pleasant and cooperative. The patient is a good historian and is very helpful with the history and physical examination. No lesions noted on face. Neurologic Cranial Nerves 2-12 are grossly intact. The gait is abnormal. Sensory testing for light touch is grossly intact. Psychiatric The patient is oriented to person, place, and time. Speech is fluent and words are clear. Thought processes are coherent, insight is good. There are no obsessive, compulsive, phobic or delusional thoughts; there are no illusions or hallucinations. The patient's fund of knowledge: awareness of current events and past history is appropriate for age. The patient's higher cognitive functions are intact. The patient's mood is neutral and the affect appropriate; there are no loose associations. MSK T-Spine Assessment Thoracic Radiculopathy: Positive Dermatomal Distribution: T11-T12 Right Facet Tenderness: Right Facet Loading: Right The patient has Moderate Limitation difficulty transitioning from sitting to standing. The patient has an antalgic gait. The thoracic spine demonstrates a flexion biased curve. Palpation reveals tenderness over the Right thoracic spine. Thoracic range of motion is limited in Rightrotation, Right lateral bend, There is no deformity to the thoracic spine. Trigger points are not present in the thoracic spine musculature. Muscle strength is 5/5 in the bilateral upper and lower extremities. L-Spine Assessment Lumbar Radiculopathy: Negative Facet Tenderness: Bilateral Facet Loading: Bilateral Sacroiliac Joint Maneuvers:Bilateral-Maxwell, -thigh thrust, -yeomen's test The patient has Moderate Limitation difficulty transitioning from sitting to standing. The patient has an antalgic gait. The lumbar spine demonstrates a flexion biased curve. Palpation reveals tenderness over the Bilateral lumbar spine. Lumbosacral range of motion is limited in flexion, extension, Bilateral rotation, Bilateral lateral bend. There is no deformity to the lumbosacral spine. There is no abnormality in muscle tone in the lumbosacral spine. Trigger points are not present in the lumbosacral spine musculature. Muscle strength is 5/5 in the bilateral lower extremities. Assessment: ICD-10-CM 1. Strain of thoracic paraspinal muscles excluding T1 and T2 levels, initial encounter S29.012A 2. Spinal stenosis, lumbar region, with neurogenic claudication M48.062 3. 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 Other low back pain M54.59 5. Myofascial pain M79.18 6. Right-sided thoracic back pain, unspecified chronicity M54.6 65 y.o. female w/PMHx of bilateral SIJ fusion with Dr Sigala, hx of alcohol abuse, who presents for follow up. Injections: previous injections of SIJ prior to fusion with Dr Stephens Meds: on valium 5mg TID PRN, and trazadone Imagin05/2025 MRI lumbar: There are 5 nonrib-bearing lumbar vertebrae. Unchanged alignment of the lumbar spine. Vertebral body heights are maintained. The bone marrow signal is somewhat heterogeneous, favoring to represent red marrow reconversion. Modic type I changes are present at the L4-L5 level. Mild edema is noted in the left L5-S1 facet with a small joint effusion, potentially reflecting acute facet arthropathy. Otherwise, no acute or aggressive osseous abnormality is evident. The visualized bony pelvis appears congruent with partially imaged bilateral sacroiliac joint fusion hardware. Limited evaluation of the abdominopelvic viscera is without acute or suspicious abnormality. Simple appearing right renal cyst is present and unchanged. L1-L2: No focal disc herniation identified. No spinal canal or neural foraminal stenosis. L2-L3: Broad-based disc bulge with superimposed broad-based left foraminal lateral protrusion. Mild to moderate spinal canal stenosis. Moderate bilateral neural foraminal stenosis, left greater than right secondary to disc osteophyte complex and facet arthropathy. This has progressed from prior study. L3-L4: Mild broad-based disc bulge with mild spinal canal stenosis. Moderate bilateral neural foraminal stenosis, right greater than left secondary to disc osteophyte complex and facet arthropathy. L4-L5: Broad-based disc bulge with probable small central disc extrusion with superior migration. Moderate spinal canal stenosis. Moderate bilateral neural foraminal stenosis secondary to disc osteophyte complex and facet arthropathy. This has not significantly changed. L5-S1: Mild broad-based disc bulge without spinal canal stenosis. More focal broad-based left foraminal lateral protrusion. Moderate left and mild right neural foraminal stenosis. This is unchanged. 05/06/25 lumbar xray There are 5 lumbar vertebral segments. The visualized osseous structures are osteopenic. There is no acute osseous lesion or fracture. There is grade 1 retrolisthesis of L2 on L3 and grade 1 anterolisthesis of L5 on S1. No instability is detected on flexion or extension. These changes are stable in the interval since the prior study There is a normal lumbar lordosis There is no abnormal curvature. There is a stable mild compression fracture at L2. There is mild loss of intervertebral disc height throughout the entire lumbar spine. This is most pronounced at the L4-L5 level where there are mild degenerative sclerotic endplate changes and small osteophytes. There are degenerative facet joint changes are most pronounced in the lower lumbar spine. There has been surgical fusion of the bilateral SI joints. The fusion hardware appears intact and unchanged. The visualized soft tissues are unremarkable. There is calcified atherosclerotic change of the abdominal aorta Referrals/consults: Dr Sigala PT: completed 6 weeks of PT at [facility] 03/17 without benefit. Labs: 04/04/25 Cr 0.65 eGFR >90 The patient has had over 3 months of moderate to severe low back pain with functional impairment and inadequate response to conservative care including NSAIDS (unless there are contraindication such as concurrent blood thinners), multiple oral or topical pain medications, and home exercise program/physical therapy. Patient has completed >6 weeks of guided home exercise program and/or formal physical therapy program without relief of their symptoms. I have reviewed the imaging of the Lumbar MRI and no red flags were identified. The Oswestry Disability Index was completed, and the patient scored a 50%. The patient noted the following: the patient has moderate or greater pain, the patient has pain that limits and/or needs help to manage their personal care, pain prevents from lifting heavy weights, pain prevents patient from walking 0.5 mile or less, the patient has pain that prevents them from standing for 60 minutes or less, Pain limits the patient to 6 hours of sleep or less, the patient's social life is restricted by pain, and pain restricts journeys of 1 hour or less Plan: - MRI lumbar reviewed with patient - currently utilizing dual action advil with tylenol with mild relief. Back has improved some, most of her pain is in her paraspinal muscles in her right upper lumbar/lower thoracic spine after she stepped out of a truck and pulled a muscle - UDS reviewed with significant alcohol intake, discussed cessation - continue NNCP due to chronic benzos and hx alcohol abuse - continue follow-up with Dr Sigala as planned - defer medication management at this time - start baclofen 5-10mg TID PRN spasms, she knows to not take this within 6hrs of taking her valium. She does not take her valium regularly TID - encouraged OTC lidocaine patches and stretching - briefly discussed MRI of her thoracic spine if this does not improve over the next month - follow up in 1 month for reassessment I have checked an OARRS report on this patient today and there are no aberrancies noted in the prescribing history. A drug screen was completed and reviewed within the last year, and if there has not been a drug screen completed we ordered one today to monitor higher risk, state monitored pain medication use. Patient had a positive alcohol screen today. Recommended maximum alcohol consumption for average adult male is 2 drinks per day, and average adult female is 1 drink per day. No amount of alcohol is considered safe, however, and there is an increased risk of adverse events and side effects from concurrent use of sedating medications including respiratory depression. Patient was advised that NO alcohol should be consumed if they are using prescribed opioid medications, and that resources are available to help reduce or quit alcohol use completely. Deepali Joe CNP HPI: Elena Mcgill Martin Presents for evaluation and treatment of low back pain. Pain is described as Aching and is currently rated 6/10, and at it's most severe is rated 8/10. Pain is increased with standing and walking and is relieved by relaxation and lying down. The patient denies numbness/tingling . she denies weakness . The patient denies to falls within the last 3 months. The patient denies bowel/bladder incontinence. Patient denies tobacco use. Audit-C Questionnaire How often do you have a drink containing alcohol? (0) never 2. How many standard drinks containing alcohol do you have on a typical day? (0) 1 or 2 3. How often do you have six or more drinks on one occasion? (0) never *A score of 3 or more in women or 4 or more in men is a positive score that requires education. Current Outpatient Medications Medication Sig Albuterol (Ventolin HFA) 108 (90 Base) MCG/ACT Aero Soln inhaler Inhale 2 puffs every 6 hours as needed for Wheezing. Allopurinol 100 MG tablet Take 1 tablet by mouth daily. Aspirin (SB Low Dose ASA EC) [address] tablet Take 1 tablet by mouth daily with breakfast. OTC buPROPion (Wellbutrin XL) 300 MG tablet XL Take 1 tablet by mouth every morning before breakfast. Cancel previous refills carveDILOL (Coreg) 12.5 MG tablet Take 1 tablet by mouth 2 times daily with meals. Cancel previous refills Cetirizine 10 MG tablet Take 1 tablet by mouth daily. OTC CUSTOM MEDICATION The patient requires a Handicap placard for 5 years, as she is unable to walk more than 200 feet without stopping to rest, due to her medical conditions. cyanocobalamin 1000 MCG tablet Chew 1 tab q daily. Cancel previous refills Diazepam 5 MG tablet Take 1 tablet by mouth 3 times daily. Trial of med Escitalopram (Lexapro) 10 MG tablet Take 1 tablet by mouth daily. Cancel previous refills Evolocumab (Repatha SureClick) 140 MG/ML Solution Auto-injector injection Inject 1 mL under the skin every 14 days. SATURDAYS fenofibrate 160 MG tablet Take 1 tablet by mouth daily. Cancel previous refills fluticasone (Flonase Allergy Relief) 50 MCG/ACT Suspension nasal spray 2 sprays by Nasal route daily as needed. OTC Folic acid 1 MG tablet Take 1 tablet by mouth daily. Cancel previous refills Lisinopril 5 MG tablet Take 1 tablet by mouth daily. Cancel previous refills magnesium oxide 400 (240 Mg) MG Take 2 tablets by mouth 2 times daily with meals. omega-3 acid ethyl esters 1 g capsule Take 2 capsules by mouth 2 times daily. Cancel previous refills Pantoprazole (Protonix) [address] tablet DR Take 1 tablet by mouth 2 times daily (take before meals). Cancel previous refills traZODone 100 MG tablet Take 1 tablet by mouth at bedtime. Cancel previous refills triamterene-hydrochlorothiazide (Dyazide) 37.5-25 MG per capsule Take 1 capsule by mouth daily. Cancel previous refills Review of Systems: General: Denies fevers, chills, or night sweats Abdominal: Denies nausea, vomiting, diarrhea Respiratory: Denies cough, sputum production Genitourinary: Denies dysuria or frequency documented in this encounter [facility] 07-09-2025 Instructions Rosalee Nguyen RN - 07/09/2025 11:30 AM EDT Please ensure you take the baclofen (muscle relaxant) 6 hours apart from your valium. The following attachments cannot be sent through Care Everywhere.Baclofen ([place])documented in this encounter [facility] 06-27-2025 History of Presen t illness Narrative Associated Order(s): LOWER EXTREMITY INJECTION: left plantar fascia Post-Procedure Diagnose(s): Plantar fasciitis; Pain of left foot Patient Elena Galeano Date: 06/27/2025 Subjective: Elena is here for follow up of left 4th toe- she did have her MRI. Also had a left heel injection a month ago. She notes no drainage from the toe. Left heel about 50% better History She notes that the toe still hurts. Also has heel pain. History This started 1mo ago. She has seen dr. Shipley already. Notes she had some pus come out of it. She had an I and D on this jun History She did get her PICC and is getting antibiotics per dr. Shipley. She had her MRI as well. She feels like the toe is filling with fluid again. History She goes to see dr. shipley tomorrow. Waiting on approval for PICC. History She is on updated antibiotics per dr. Shipley. She notes she is doing ok. She is on augmentin History that the toe is improving, but something is happening on the underside of the toe. History of the left 4th toe. She notes that she is on her 2nd round of keflex. She has had an xray a few days ago and some purulence drained from the toe a few days ago. A culture is pending. She notes that the toe has been bad for 3-4 months, but she really has had problems on and off for about a month. She does not remember any kind of trauma. Allergies Allergen Reactions Nsaids Has CKD-3a, and Anemia Current Outpatient Medications Medication Sig Albuterol (Ventolin HFA) 108 (90 Base) MCG/ACT Aero Soln inhaler Inhale 2 puffs every 6 hours as needed for Wheezing. Allopurinol 100 MG tablet Take 1 tablet by mouth daily. Aspirin (SB Low Dose ASA EC) [address] tablet Take 1 tablet by mouth daily with breakfast. OTC buPROPion (Wellbutrin XL) 300 MG tablet XL Take 1 tablet by mouth every morning before breakfast. Cancel previous refills carveDILOL (Coreg) 12.5 MG tablet Take 1 tablet by mouth 2 times daily with meals. Cancel previous refills Cetirizine 10 MG tablet Take 1 tablet by mouth daily. OTC CUSTOM MEDICATION The patient requires a Handicap placard for 5 years, as she is unable to walk more than 200 feet without stopping to rest, due to her medical conditions. cyanocobalamin 1000 MCG tablet Chew 1 tab q daily. Cancel previous refills Diazepam 5 MG tablet Take 1 tablet by mouth 3 times daily. Trial of med Escitalopram (Lexapro) 10 MG tablet Take 1 tablet by mouth daily. Cancel previous refills Evolocumab (Repatha SureClick) 140 MG/ML Solution Auto-injector injection Inject 1 mL under the skin every 14 days. SATURDAYS fenofibrate 160 MG tablet Take 1 tablet by mouth daily. Cancel previous refills fluticasone (Flonase Allergy Relief) 50 MCG/ACT Suspension nasal spray 2 sprays by Nasal route daily as needed. OTC Folic acid 1 MG tablet Take 1 tablet by mouth daily. Cancel previous refills Lisinopril 5 MG tablet Take 1 tablet by mouth daily. Cancel previous refills magnesium oxide 400 (240 Mg) MG Take 2 tablets by mouth 2 times daily with meals. omega-3 acid ethyl esters 1 g capsule Take 2 capsules by mouth 2 times daily. Cancel previous refills Pantoprazole (Protonix) [address] tablet DR Take 1 tablet by mouth 2 times daily (take before meals). Cancel previous refills traZODone 100 MG tablet Take 1 tablet by mouth at bedtime. Cancel previous refills triamterene-hydrochlorothiazide (Dyazide) 37.5-25 MG per capsule Take 1 capsule by mouth daily. Cancel previous refills Past Medical History: Diagnosis Date A-fib watchman device place per [facility] Arrhythmia Arthritis ASCUS of cervix with negative high risk HPV B12 deficiency Bradycardia Carotid stenosis, bilateral-Right 30%, and left 60% Central retinal artery occlusion of left eye CKD stage 3a, GFR 45-59 ml/min CLL (chronic lymphocytic leukemia) 2011 [id number] on 09-30-2020 Depression Diffuse non-Hodgkin's lymphoma chemotherapy Folate deficiency GERD (gastroesophageal reflux disease) Gout pt denies Hiatal hernia pt denies Hyperlipidemia LDL goal <70 Hypertension Hyponatremia Iron deficiency anemia Non-Hodgkin lymphoma 2011 in remission PERCY (obstructive sleep apnea)-Uses oral appliance PVC's (premature ventricular contractions) 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 (blindness) Type 2 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 disease, without long-term current use of insulin Past Surgical History: Procedure Laterality Date ARTHROPLASTY KNEE TOTAL Left 11/12/2024 Laterality: Left; Surgeon: Gonsalo Blackwood MD; Location: [facility] OR EGD DIAGNOSTIC 10/29/2024 ARTHRODESIS SACROILIAC JOINT MINIMALLY INVASIVE W/ TRANSFIXING DEVICE Right 05/03/2024 Laterality: Right; Surgeon: Isreal Sigala MD; Location: [facility] OR FLUOROSCOPY IN OR Right 05/03/2024 Laterality: Right; Surgeon: Isreal Sigala MD; Location: [facility] OR I&D BURSA FOOT Left 07/08/2023 Laterality: Left; Surgeon: Dawn Uriarte DPM; Location: [facility] OR INJECTION NERVE OTHER PERIPHERAL Left 12/16/2022 Laterality: Left; Surgeon: Isreal Sigala MD; Location: [facility] OR GUIDANCE FLUOROSCOPIC NEEDLE OR CATHETER PLACEMENT FOR SPINE INJECTION ADD-ON PX Left 12/16/2022 Laterality: Left; Surgeon: Isreal Sigala MD; Location: [facility] OR SUSPENSION URETHRA/URETHROVESICAL FEMALE OPEN W/ SYNTHETIC MATERIAL (SLING) Midline 08/31/2022 Laterality: Midline; Surgeon: Dariusz Rangel MD; Location: [facility] OR CYSTOURETHROSCOPY W/ DILATION BLADDER Midline 08/31/2022 Laterality: Midline; Surgeon: Dariusz Rangel MD; Location: [facility] OR COLPORRHAPHY ANTEROPOSTERIOR REPAIR CYSTOCELE & RECTOCELE Midline 08/31/2022 Laterality: Midline; Surgeon: Dariusz Rangel MD; Location: [facility] OR ARTHRODESIS SACROILIAC JOINT MINIMALLY INVASIVE W/ TRANSFIXING DEVICE Left 06/17/2022 Laterality: Left; Surgeon: Isreal Sigala MD; Location: [facility] OR GUIDANCE FLUOROSCOPIC NEEDLE OR CATHETER PLACEMENT FOR SPINE INJECTION ADD-ON PX Left 06/17/2022 Laterality: Left; Surgeon: Isreal Sigala MD; Location: [facility] OR EGD W/ DILATION BALLOON N/A 12/01/2021 Laterality: N/A; Surgeon: Indra Parrish DO; Location: [facility] ENDOSCOPY SHOULDER ARTHROSCOPY Left 06/18/2021 REMOVAL CENTRAL VENOUS ACCESS DEVICE TUNNELED W/ PORT PUMP Left 09/13/2019 Laterality: Left; Surgeon: Eduardo Muñoz MD; Location: [facility] INTERVENTIONAL RADIOLOGY (VIR) EGD W/ DILATION BALLOON N/A 06/30/2018 Laterality: N/A; Surgeon: Indra Parrish DO; Location: [facility] ENDOSCOPY EGD DIAGNOSTIC N/A 04/07/2018 Laterality: N/A; Surgeon: Wilner Leigh MD; Location: [facility] ENDOSCOPY COLONOSCOPY DIAGNOSTIC N/A 04/07/2018 Laterality: N/A; Surgeon: Wilner Leigh MD; Location: [facility] ENDOSCOPY KNEE REPLACEMENT Right 05/2015 done at [place]--CC ARTHROPLASTY KNEE TOTAL Right 04/2015 INSERTION PICC W/ PORT PUMP 2014 power port COLONOSCOPY DIAGNOSTIC 2006 SALPINGO-OOPHORECTOMY OPEN N/A 1983 APPENDECTOMY OPEN 1983 TONSILLECTOMY ADENOIDECTOMY 1968 EGD DIAGNOSTIC 10 months ago OTHER SURGICAL Watchman Device -placed 11/24/2023 Social History Occupational History Employer: RETIRED Tobacco Use Smoking status: Former Current packs/day: 0.00 Average packs/day: 0.8 packs/day for 35.0 years (26.3 ttl pk-yrs) Types: Cigarettes Start date: 04/23/1978 Quit date: 04/23/2013 Years since quittin.1 Passive exposure: Past Smokeless tobacco: Never Vaping Use Vaping status: Never Used Substance and Sexual Activity Alcohol use: Yes Alcohol/week: 56.0 standard drinks of alcohol Types: 56 Glasses of wine per week Drug use: Never Sexual activity: Not Currently Partners: Male control/protection: Menopause MRI FOOT LEFT WITHOUT CONTRAST Result Date: 06/20/2025 EXAM: MRI FOOT LEFT WITHOUT CONTRAST HISTORY: Left fourth toe infection with an ulcer to the fourth toe for 2 years. Foot pain. COMPARISON: Left foot x-rays from 05/16/2025. TECHNIQUE: Multiplanar and multisequence imaging of the left foot was performed without contrast. FINDINGS: Motion artifact degrades evaluation on this study with motion more pronounced on the sagittal STIR images. No acute fracture or dislocation is evident. There is no metatarsal stress fracture. There is mild joint space narrowing of the first metatarsophalangeal joint and IP joint of the first toe. There is mild to moderate degenerative change of the DIP joint of the second toe with joint space narrowing and spurring. There is no MRI evidence of osteomyelitis. No definite MRI findings of cellulitis are evident and correlation with the clinical findings would be helpful. There is no focal abscess. The ulcer of the fourth toe described in the clinical history may be along the plantar aspect of the fourth toe, but is not well delineated on MRI. Flexor and extensor tendons in the midfoot and forefoot appear intact with no focal tendon tear. There is no tenosynovitis. There is no focal abnormality involving the plantar aponeurosis. IMPRESSION: 1. No MRI evidence of osteomyelitis in the left foot. 2. No acute or healing fracture. 3. No focal abscess. There may be a small ulcer along the plantar aspect of the fourth toe and correlation with the clinical history would be helpful. 4. No MRI findings of cellulitis. CT SPINE LUMBAR WITHOUT CONTRAST Result Date: 06/11/2025 EXAM TYPE: CT SPINE LUMBAR WITHOUT CONTRAST EXAM DATE AND TIME: 06/07/2025 3:11 PM EDT INDICATION: 65 years old Female with pain COMPARISON: MRI same day TECHNIQUE: CT imaging of the lumbar spine was obtained without contrast. Dose reduction techniques were achieved by using automated exposure control and/or adjustment of mA and/or kV according to patient size and/or use of iterative reconstruction technique. FINDINGS: There are 5 nonrib-bearing lumbar vertebrae. Unchanged alignment of the lumbar spine. Vertebral body heights are maintained. No acute displaced fracture identified. Moderate multilevel degenerative disc disease and facet arthropathy throughout the lumbar spine. No CT evidence of focal large central disc herniation or severe spinal canal stenosis. See separate lumbar spine report for further characterization. The visualized bony pelvis appears congruent with surgical changes from bilateral SI fusion. Hardware appears intact. Limited evaluation of the abdominopelvic viscera is without acute or suspicious abnormality. IMPRESSION: Postsurgical and degenerative changes without acute osseous abnormality. MRI SPINE LUMBAR WITHOUT CONTRAST Result Date: 06/11/2025 EXAM: MRI SPINE LUMBAR WITHOUT CONTRAST REASON FOR EXAM: lumbar stenosis with NC. TECHNIQUE: Multiplanar, multisequence imaging of the lumbar spine was performed without contrast COMPARISON: CT scan same date, prior MRI 06/20/2023. FINDINGS: There are 5 nonrib-bearing lumbar vertebrae. Unchanged alignment of the lumbar spine. Vertebral body heights are maintained. The bone marrow signal is somewhat heterogeneous, favoring to represent red marrow reconversion. Modic type I changes are present at the L4-L5 level. Mild edema is noted in the left L5-S1 facet with a small joint effusion, potentially reflecting acute facet arthropathy. Otherwise, no acute or aggressive osseous abnormality is evident. The visualized bony pelvis appears congruent with partially imaged bilateral sacroiliac joint fusion hardware. Limited evaluation of the abdominopelvic viscera is without acute or suspicious abnormality. Simple appearing right renal cyst is present and unchanged. L1-L2: No focal disc herniation identified. No spinal canal or neural foraminal stenosis. L2-L3: Broad-based disc bulge with superimposed broad-based left foraminal lateral protrusion. Mild to moderate spinal canal stenosis. Moderate bilateral neural foraminal stenosis, left greater than right secondary to disc osteophyte complex and facet arthropathy. This has progressed from prior study. L3-L4: Mild broad-based disc bulge with mild spinal canal stenosis. Moderate bilateral neural foraminal stenosis, right greater than left secondary to disc osteophyte complex and facet arthropathy. L4-L5: Broad-based disc bulge with probable small central disc extrusion with superior migration. Moderate spinal canal stenosis. Moderate bilateral neural foraminal stenosis secondary to disc osteophyte complex and facet arthropathy. This has not significantly changed. L5-S1: Mild broad-based disc bulge without spinal canal stenosis. More focal broad-based left foraminal lateral protrusion. Moderate left and mild right neural foraminal stenosis. This is unchanged. IMPRESSION: 1. Moderate multilevel degenerative disc disease throughout the lumbar spine as described above. Interval progression of stenosis at the L2-L3 level, otherwise, no significant change. 2. Surgical changes from bilateral SI fusion, partially imaged LOWER EXTREMITY INJECTION: left plantar fascia Result Date: 05/30/2025 Dawn Uriarte DPM 05/30/2025 12:47 PM LOWER EXTREMITY INJECTION: left plantar fascia Date/Time: 05/30/2025 11:30 AM Performed by: Dawn Uriarte DPM Authorized by: Dawn Uriarte DPM Supporting Documentation Indications: pain Procedure Details: Procedure: tendon sheath / ligament injection Location: foot - left plantar fascia Needle size: 25 G Approach: plantar (medial-plantar) Medication Verification: I have personally verified and performed the final check of the medication(s) used in this procedure prior to administration. The following items were included during the verification process for medication(s) administered: drug name, strength, volume, expiration, physical integrity and appearance of the medication(s). Medications administered: 0.5 mL triamcinolone 40 MG/ML; 2 mg dexAMETHasone 4 MG/ML Patient tolerance: patient tolerated the procedure well with no immediate complications Consent: Consent was obtained prior to the procedure after discussion of the risks, benefits and alternatives, and expected outcomes were discussed with the patient. The possibilities of reaction to medication, bleeding, infection, the need for additional procedures, failure to diagnosis a condition, and creating a complication requiring operation were discussed with the patient. The patient concurred with the proposed plan, giving consent. Preparation: Patient was prepped in the usual sterile fashion. The patient was prepped with chlorhexidine. ROS: Review of Systems Nurse Note: Review of Systems Nursing Assessment: Physical Exam Nurse Note: Review of Systems Constitutional: Negative for fatigue, fever and unexpected weight change. HENT: No difficulty swallowing No change in voice Respiratory: Negative for cough, shortness of breath and wheezing. Cardiovascular: Positive for leg swelling. Negative for chest pain and palpitations. Gastrointestinal: Negative for constipation, diarrhea, nausea and vomiting. Neurological: Negative for tremors, weakness and numbness. Psychiatric/Behavioral: Negative for sleep disturbance. The patient is not nervous/anxious. Nursing Assessment: Physical Exam Objective: Vitals: 06/27/25 0747 BP: 134/78 Pulse: 72 Objective: Vascular: Dorsalis pedis and posterior tibial pulses are readilly palpable and graded at 2/4 left. Dermatological: Left 4th toe with resolved swelling and no erythema. No drainage Pain on pressure No drainage MSK: + pain left heel at the insertion of the medial band of the plantar fascia Assessment: Sarah was seen today for pain and follow-up. Diagnoses and all orders for this visit: Skin ulcer of fourth toe of left foot, limited to breakdown of skin Plantar fasciitis - LOWER EXTREMITY INJECTION: left plantar fascia Pain of left foot - LOWER EXTREMITY INJECTION: left plantar fascia acute complicated, limb threatening diagnosis Plan: Patient was seen and evaluated today Re: left 4th toe MRI reviewed- no OM Will leave toe alone for now Consider exploration surgery in the future Re: plantar fasciitis- unrelated to the 4th toe No barefoot Ice prn We discussed conservative alternatives, along with risks and benefits of a cortisone injection today. The decision to give the patient an injection today was based off of the physical examination and diagnosis and was determined to be appropriate. The patient signed an informed consent to be given the injection. Injection # 2 left heel Will call in for PT if she still has pain jessica month LOWER EXTREMITY INJECTION: left plantar fascia Date/Time: 06/27/2025 8:10 AM Performed by: Dawn Uriarte DPM Authorized by: Dawn Uriarte DPM Supporting Documentation Indications: pain Procedure Details: Procedure: tendon sheath / ligament injection Location: foot - left plantar fascia Needle size: 25 G Approach: plantar (medial-plantar) Medication Verification: I have personally verified and performed the final check of the medication(s) used in this procedure prior to administration. The following items were included during the verification process for medication(s) administered: drug name, strength, volume, expiration, physical integrity and appearance of the medication(s). Medications administered: 0.5 mL triamcinolone 40 MG/ML; 2 mg dexAMETHasone 4 MG/ML Patient tolerance: patient tolerated the procedure well with no immediate complications Consent: Consent was obtained prior to the procedure after discussion of the risks, benefits and alternatives, and expected outcomes were discussed with the patient. The possibilities of reaction to medication, bleeding, infection, the need for additional procedures, failure to diagnosis a condition, and creating a complication requiring operation were discussed with the patient. The patient concurred with the proposed plan, giving consent. Preparation: Patient was prepped in the usual sterile fashion. The patient was prepped with chlorhexidine. Nurse Note: Review of Systems Nursing Assessment: Physical Exam Nurse Note: Review of Systems Constitutional: Negative for fatigue, fever and unexpected weight change. HENT: No difficulty swallowing No change in voice Respiratory: Negative for cough, shortness of breath and wheezing. Cardiovascular: Positive for leg swelling. Negative for chest pain and palpitations. Gastrointestinal: Negative for constipation, diarrhea, nausea and vomiting. Neurological: Negative for tremors, weakness and numbness. Psychiatric/Behavioral: Negative for sleep disturbance. The patient is not nervous/anxious. Nursing Assessment: Physical Exam documented in this encounter [facility] 06-20-2025 History of Presen t illness Narrative Subjective History of Present Illness HISTORY OF PRESENT ILLNESS: 65 y.o. female presents with complaints of: Encounter Diagnoses Name Primary? Type 2 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 disease, without long-term current use of insulin Yes Stage 3a chronic kidney disease Bilateral carotid artery stenosis-30% Right, 60% Left Spondylosis of cervical region without myelopathy or radiculopathy B12 deficiency Folate deficiency Macrocytosis Chronic midline low back pain without sciatica CLL (chronic lymphocytic leukemia) PVC's (premature ventricular contractions) Essential hypertension Gastroesophageal reflux disease without esophagitis Chronic sinusitis, unspecified location Non-seasonal allergic rhinitis, unspecified trigger Elevated LFTs Former smoker-Quit 2011 Moderate persistent asthma without complication Hypertriglyceridemia Hiatal hernia PERCY on CPAP-Off BiPAP due to intolerance and uses oral appliance Insomnia, unspecified type Vitamin D deficiency Fatty liver Primary osteoarthritis of both knees S/P total knee arthroplasty, right ETOH abuse S/P unilateral salpingo-oophorectomy Internal and external hemorrhoids without complication Renal cyst, right Duodenal diverticulum Paroxysmal atrial fibrillation Hepatomegaly Chronic obstructive pulmonary disease, unspecified COPD type Esophagitis, Clyo grade A Obesity (BMI 30.0-34.9) Idiopathic chronic gout without tophus, unspecified site Hyperlipidemia LDL goal <70 Fatty food intolerance Seborrheic keratosis, inflamed-Left thigh-S/P Excision Low HDL (under 40) Anxiety and depression Allergic conjunctivitis of both eyes Combined forms of age-related cataract, bilateral Bilateral dry eyes Irregular astigmatism of right eye Regular astigmatism of left eye Pinguecula of both eyes Blepharitis of upper eyelids of both eyes, unspecified type Fatigue, unspecified type ASCUS of cervix with negative high risk HPV Unspecified amblyopia, right eye Hypermetropia of left eye Myopia of right eye Presbyopia S/P cataract extraction and insertion of intraocular lens, unspecified laterality Spondylosis of lumbar region without myelopathy or radiculopathy Other idiopathic scoliosis, lumbar region Esophageal stenosis Chronic gastritis without bleeding, unspecified gastritis type Mixed stress and urge incontinence Spinal stenosis of lumbar region without neurogenic claudication Primary osteoarthritis of both hips-Mild Osteopenia determined by x-ray HNP (herniated nucleus pulposus), lumbar-Multi level Bradycardia Vision loss of left eye Central retinal artery occlusion of left eye Hyponatremia Hypertensive heart disease without heart failure Family history of Alzheimer's disease-Father Pulmonary emphysema, unspecified emphysema type Chronic anticoagulation PCO (posterior capsular opacification), left Pseudophakia of both eyes Hypomagnesemia Hypoproteinemia Left renal stone PAC (premature atrial contraction) 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 Lumbar foraminal stenosis History of [id number] 09-30-2020 Uterine leiomyoma, unspecified location Atherosclerosis of abdominal aorta Hyperthyroidism Other optic atrophy, left eye Posterior capsular opacification non visually significant, both eyes-L>R Presence of Watchman left atrial appendage closure device Orthostasis Sacroiliitis Iron deficiency anemia, unspecified iron deficiency anemia type Primary osteoarthritis of left knee Caffeine use Calcification of aorta Odynophagia Family history of hypertension in mother Osteoarthritis of left knee, unspecified osteoarthritis type History of CVA (cerebrovascular accident) Type 2 DM, CKD-3a, Hyperlipidemia, Elevated LFT's and NHL. Needs refills. +Fam Hx Alzheimers. Drinks 6-7 glasses wine per day. Non Smoker, former. Still with LBP. Moderate. No radiation, numbness or weakness. Recent MRI and CT L-spine showed bulging discs and forminaal stenosis. Had MRI L foot on 06-17-25 and not yet results. Recent Mg low as was taking less magnesium than was supposed to take and now on 2 BID. Had repeat Mg level today and is pending. Recent A1C 5.6, Glucose 112, NA++ 135, LFT's up some, GFR 89, LDL 129, TG 277. All other labs WNL. +Left sided blindness and right sided blurred vision. +Occasional orthostasis. +Occasional odynophagia. No C.P., SOB, Edema, Palpitations, Dizziness, Fatigue, GERD, Melena, Hematochezia, Dysuria, or Frequency. All others negative on ROS. Objective Review of Systems Constitutional: Negative for fatigue and unexpected weight change. HENT: Positive for trouble swallowing (Odynophagia). Negative for voice change. Eyes: Positive for visual disturbance (Right with left blindness). Respiratory: Negative for shortness of breath. Cardiovascular: Negative for chest pain, palpitations and leg swelling. Gastrointestinal: Negative for abdominal pain and blood in stool. No GERD Genitourinary: Negative for dysuria and frequency. Musculoskeletal: Positive for back pain (Moderate, daily LBP). Negative for arthralgias. Neurological: Negative for dizziness, weakness and numbness. Psychiatric/Behavioral: Negative for dysphoric mood and sleep disturbance. The patient is not nervous/anxious. All other systems reviewed and are negative. Psych Review of Symptoms: Depressive Symptoms: No fatigue. Vitals: Blood pressure 152/78, pulse 65, temperature 97.2 F (36.2 C), resp. rate 16, height 1.651 m (5' 5), weight 91.3 kg (201 lb 3.2 oz), SpO2 98%, not currently . Physical Exam Vitals and nursing note reviewed. Constitutional: General: She is not in acute distress. Appearance: Normal appearance. She is obese. She is not ill-appearing. HENT: Head: Normocephalic and atraumatic. Nose: No congestion. Eyes: General: No scleral icterus. Right eye: No discharge. Left eye: No discharge. Extraocular Movements: Extraocular movements intact. Conjunctiva/sclera: Conjunctivae normal. Pupils: Pupils are equal, round, and reactive to light. Pulmonary: Effort: Pulmonary effort is normal. Breath sounds: No wheezing or rhonchi. Abdominal: General: Abdomen is flat. Bowel sounds are normal. There is no distension. Tenderness: There is no abdominal tenderness. Musculoskeletal: General: Normal range of motion. Cervical back: Normal range of motion and neck supple. No rigidity. No muscular tenderness. Right lower leg: No edema. Left lower leg: No edema. Skin: Coloration: Skin is not jaundiced. Findings: No bruising, erythema or rash. Neurological: General: No focal deficit present. Mental Status: She is alert and oriented to person, place, and time. Mental status is at baseline. Psychiatric: Mood and Affect: Mood normal. Behavior: Behavior normal. Thought Content: Thought content normal. Judgment: Judgment normal. Neurological Exam Mental Status Alert. Oriented to person, place, and time. Cranial Nerves CN III, IV, : Extraocular movements intact bilaterally. Pupils equal round and reactive to light bilaterally. Assessment and Plan Refills given all meds requested. Awaiting results of today's Mg level. Awaiting results of 06-17-25 left foot MRI. Limit ETOH to 2 glasses wine per day. Monitor BP's at home and record. We will call for Dr. Garza notes from [facility] and alaina in with him. Schedule soon with Dr. Christianson and phone number again given. Alaina 06-27-[address] Uriarte. Alaina 07-09-[address] Sigala. Alaina end of with Dr. Ellis and refill Valium with him. Alaina 09-11-[address] Naty Bhakta at [facility] and get HD Flu with her same day. COVID-19, Shingrix and Arexvy vaccines declined. Risks discussed. Alaina with Dr. Garza at [facility]. Alaina 09-12-25 for Follow-up, sooner prn. Alaina 09-13-[address] Ciro Lyles. Alaina 11-05-[address] Calderon. Alaina with Cardiology Dr. Brian Brush for Watchman alaina. Alaina 11-07-[address] Davison. Alaina all labs, UA, Vit D, A1C, Mg, PTH, Fe, B1, B6,, B12, Folate, Free T4, UA CR and UA for micro-albumin in . Alaina with Dr. Philip at [facility]. Alaina 3-D mammogram in . Alaina Carotid doppler in and if stable will repeat q 5 years thereafter. Alaina DEXA in . Alaina with Director Pediatric Dr. Keshawn Nunez for q 2 years pelvic and breast exam. No PAP needed. Alaina Colon and EGD in with Dr. Ellis. Will give Prevnar-20 in . Total time spent 65 minutes, excluding tests and procedures. Diet and lifestyle counseling was given, and care coordinated. OARRS report was received and assessed, and is consistent with the medications prescribed. Thank you for choosing Dr. Fernie Paredes s Office at [facility] for your healthcare needs. The patients' entire past medical, surgical, family, social history, allergies, medications, recent labs, recent imaging and [employer] consultant letters were reviewed and updated. ASSESSMENT & PLAN: Encounter Diagnoses Name Primary? Type 2 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 disease, without long-term current use of insulin Yes Stage 3a chronic kidney disease Bilateral carotid artery stenosis-30% Right, 60% Left Spondylosis of cervical region without myelopathy or radiculopathy B12 deficiency Folate deficiency Macrocytosis Chronic midline low back pain without sciatica CLL (chronic lymphocytic leukemia) PVC's (premature ventricular contractions) Essential hypertension Gastroesophageal reflux disease without esophagitis Chronic sinusitis, unspecified location Non-seasonal allergic rhinitis, unspecified trigger Elevated LFTs Former smoker-Quit 2011 Moderate persistent asthma without complication Hypertriglyceridemia Hiatal hernia PERCY on CPAP-Off BiPAP due to intolerance and uses oral appliance Insomnia, unspecified type Vitamin D deficiency Fatty liver Primary osteoarthritis of both knees S/P total knee arthroplasty, right ETOH abuse S/P unilateral salpingo-oophorectomy Internal and external hemorrhoids without complication Renal cyst, right Duodenal diverticulum Paroxysmal atrial fibrillation Hepatomegaly Chronic obstructive pulmonary disease, unspecified COPD type Esophagitis, Clyo grade A Obesity (BMI 30.0-34.9) Idiopathic chronic gout without tophus, unspecified site Hyperlipidemia LDL goal <70 Fatty food intolerance Seborrheic keratosis, inflamed-Left thigh-S/P Excision Low HDL (under 40) Anxiety and depression Allergic conjunctivitis of both eyes Combined forms of age-related cataract, bilateral Bilateral dry eyes Irregular astigmatism of right eye Regular astigmatism of left eye Pinguecula of both eyes Blepharitis of upper eyelids of both eyes, unspecified type Fatigue, unspecified type ASCUS of cervix with negative high risk HPV Unspecified amblyopia, right eye Hypermetropia of left eye Myopia of right eye Presbyopia S/P cataract extraction and insertion of intraocular lens, unspecified laterality Spondylosis of lumbar region without myelopathy or radiculopathy Other idiopathic scoliosis, lumbar region Esophageal stenosis Chronic gastritis without bleeding, unspecified gastritis type Mixed stress and urge incontinence Spinal stenosis of lumbar region without neurogenic claudication Primary osteoarthritis of both hips-Mild Osteopenia determined by x-ray HNP (herniated nucleus pulposus), lumbar-Multi level Bradycardia Vision loss of left eye Central retinal artery occlusion of left eye Hyponatremia Hypertensive heart disease without heart failure Family history of Alzheimer's disease-Father Pulmonary emphysema, unspecified emphysema type Chronic anticoagulation PCO (posterior capsular opacification), left Pseudophakia of both eyes Hypomagnesemia Hypoproteinemia Left renal stone PAC (premature atrial contraction) 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 Lumbar foraminal stenosis History of [id number] 09-30-2020 Uterine leiomyoma, unspecified location Atherosclerosis of abdominal aorta Hyperthyroidism Other optic atrophy, left eye Posterior capsular opacification non visually significant, both eyes-L>R Presence of Watchman left atrial appendage closure device Orthostasis Sacroiliitis Iron deficiency anemia, unspecified iron deficiency anemia type Primary osteoarthritis of left knee Caffeine use Calcification of aorta Odynophagia Family history of hypertension in mother Osteoarthritis of left knee, unspecified osteoarthritis type History of CVA (cerebrovascular accident) No orders of the defined types were placed in this encounter. Medications Discontinued During This Encounter Medication Reason Phenylephrine 2.5 % Solution proparacaine 0.5 % Solution tropicamide 1 % Solution omega-3 acid ethyl esters 1 g capsule Reorder buPROPion (Wellbutrin XL) 300 MG tablet XL Reorder carveDILOL (Coreg) 12.5 MG tablet Reorder Escitalopram (Lexapro) 10 MG tablet Reorder fenofibrate 160 MG tablet Reorder Folic acid 1 MG tablet Reorder Lisinopril 5 MG tablet Reorder Pantoprazole (Protonix) [address] brian ALLISON Reorder traZODone 100 MG tablet Reorder triamterene-hydrochlorothiazide (Dyazide) 37.5-25 MG per capsule Reorder cyanocobalamin 1000 MCG tablet Reorder Current Medications[1] Counseling given: No Follow up appointment(s) have been discussed with the patient. The patient is given an After Visit Summary sheet that lists all of their medications with directions, their allergies, orders placed during this encounter, immunization dates, and follow- up instructions. Fernie Paredes DO [address] [id number] This note is electronically signed in the electronic medical record. [1] Current Outpatient Medications Medication Sig Dispense Refill buPROPion (Wellbutrin XL) 300 MG tablet XL Take 1 tablet by mouth every morning before breakfast. Cancel previous refills 90 tablet 0 carveDILOL (Coreg) 12.5 MG tablet Take 1 tablet by mouth 2 times daily with meals. Cancel previous refills 180 tablet 0 cyanocobalamin 1000 MCG tablet Chew 1 tab q daily. Cancel previous refills 90 tablet 0 Escitalopram (Lexapro) 10 MG tablet Take 1 tablet by mouth daily. Cancel previous refills 90 tablet 0 fenofibrate 160 MG tablet Take 1 tablet by mouth daily. Cancel previous refills 90 tablet 0 Folic acid 1 MG tablet Take 1 tablet by mouth daily. Cancel previous refills 90 tablet 0 Lisinopril 5 MG tablet Take 1 tablet by mouth daily. Cancel previous refills 90 tablet 0 omega-3 acid ethyl esters 1 g capsule Take 2 capsules by mouth 2 times daily. Cancel previous refills 360 capsule 0 Pantoprazole (Protonix) [address] tablet DR Take 1 tablet by mouth 2 times daily (take before meals). Cancel previous refills 180 tablet 0 traZODone 100 MG tablet Take 1 tablet by mouth at bedtime. Cancel previous refills 90 tablet 0 triamterene-hydrochlorothiazide (Dyazide) 37.5-25 MG per capsule Take 1 capsule by mouth daily. Cancel previous refills 90 capsule 0 Albuterol (Ventolin HFA) 108 (90 Base) MCG/ACT Aero Soln inhaler Inhale 2 puffs every 6 hours as needed for Wheezing. 18 g 0 Allopurinol 100 MG tablet Take 1 tablet by mouth daily. 90 tablet 3 Aspirin (SB Low Dose ASA EC) [address] tablet Take 1 tablet by mouth daily with breakfast. OTC Cetirizine 10 MG tablet Take 1 tablet by mouth daily. OTC CUSTOM MEDICATION The patient requires a Handicap placard for 5 years, as she is unable to walk more than 200 feet without stopping to rest, due to her medical conditions. 1 Each 0 Diazepam 5 MG tablet Take 1 tablet by mouth 3 times daily. Trial of med 90 tablet 1 Evolocumab (Repatha SureClick) 140 MG/ML Solution Auto-injector injection Inject 1 mL under the skin every 14 days. SATURDAYS 6 mL 3 fluticasone (Flonase Allergy Relief) 50 MCG/ACT Suspension nasal spray 2 sprays by Nasal route daily as needed. OTC magnesium oxide 400 (240 Mg) MG Take 2 tablets by mouth 2 times daily with meals. No current facility-administered medications for this visit. documented in this encounter [facility] 06-20-2025 Miscellaneous Notes Addended by: FERNIE PAREDES on: 06/20/2025 02:31 PM Modules accepted: Orders documented in this encounter [facility] 06-20-2025 Note Addended by: FERNIE PAREDES on: 06/20/2025 02:31 PM Modules accepted: Orders [facility] 06-20-2025 Evaluation note Diagnosis Type 2 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 disease, without long-term current use of insulin- Primary Stage 3a chronic kidney disease Bilateral carotid artery stenosis-30% Right, 60% Left Occlusion and stenosis of multiple and bilateral precerebral arteries without mention of cerebral infarction Spondylosis of cervical region without myelopathy or radiculopathy Cervical spondylosis without myelopathy B12 deficiency Other B-complex deficiencies Folate deficiency Other B-complex deficiencies Macrocytosis Other specified diseases of blood and blood-forming organs Chronic midline low back pain without sciatica CLL (chronic lymphocytic leukemia) Chronic lymphoid leukemia, without mention of having achieved remission PVC's (premature ventricular contractions) Other premature beats Essential hypertension Unspecified essential hypertension Gastroesophageal reflux disease without esophagitis Esophageal reflux Chronic sinusitis, unspecified location Non-seasonal allergic rhinitis, unspecified trigger Elevated LFTs Other abnormal blood chemistry Former smoker-Quit 2011 Personal history of tobacco use, presenting hazards to health Moderate persistent asthma without complication Unspecified asthma Hypertriglyceridemia Pure hyperglyceridemia Hiatal hernia Diaphragmatic hernia without mention of obstruction or gangrene PERCY on CPAP-Off BiPAP due to intolerance and uses oral appliance Obstructive sleep apnea (adult) (pediatric) Insomnia, unspecified type Vitamin D deficiency Unspecified vitamin D deficiency Fatty liver Other chronic nonalcoholic liver disease Primary osteoarthritis of both knees Primary localized osteoarthrosis, lower leg S/P total knee arthroplasty, right ETOH abuse Alcohol abuse, unspecified S/P unilateral salpingo-oophorectomy Acquired absence of organ, genital organs Internal and external hemorrhoids without complication Internal hemorrhoids without mention of complication Renal cyst, right 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 Diverticulosis of small intestine (without mention of hemorrhage) Paroxysmal atrial fibrillation Atrial fibrillation Hepatomegaly Chronic obstructive pulmonary disease, unspecified COPD type Esophagitis, Clyo grade A Obesity (BMI 30.0-34.9) Obesity, unspecified Idiopathic chronic gout without tophus, unspecified site Hyperlipidemia LDL goal <70 Other and unspecified hyperlipidemia Fatty food intolerance Other specified intestinal malabsorption Seborrheic keratosis, inflamed-Left thigh-S/P Excision Inflamed seborrheic keratosis Low HDL (under 40) Lipoprotein deficiencies Anxiety and depression Dysthymic disorder Allergic conjunctivitis of both eyes Other chronic allergic conjunctivitis Combined forms of age-related cataract, bilateral Bilateral dry eyes Tear film insufficiency, unspecified Irregular astigmatism of right eye Irregular astigmatism Regular astigmatism of left eye Regular astigmatism Pinguecula of both eyes Pinguecula Blepharitis of upper eyelids of both eyes, unspecified type Fatigue, unspecified type ASCUS of cervix with negative high risk HPV Unspecified amblyopia, right eye Hypermetropia of left eye Hypermetropia Myopia of right eye Myopia Presbyopia S/P cataract extraction and insertion of intraocular lens, unspecified laterality Spondylosis of lumbar region without myelopathy or radiculopathy Lumbosacral spondylosis without myelopathy Other idiopathic scoliosis, lumbar region Esophageal stenosis Stricture and stenosis of esophagus Chronic gastritis without bleeding, unspecified gastritis type Mixed stress and urge incontinence Spinal stenosis of lumbar region without neurogenic claudication Spinal stenosis, lumbar region, without neurogenic claudication Primary osteoarthritis of both hips-Mild Primary localized osteoarthrosis, pelvic region and thigh Osteopenia determined by x-ray HNP (herniated nucleus pulposus), lumbar-Multi level Displacement of lumbar intervertebral disc without myelopathy Bradycardia Other specified cardiac dysrhythmias Vision loss of left eye Unqualified visual loss, one eye Central retinal artery occlusion of left eye Central artery occlusion of retina Hyponatremia Hyposmolality and/or hyponatremia Hypertensive heart disease without heart failure Unspecified hypertensive heart disease without heart failure Family history of Alzheimer's disease-Father Family history of other condition Pulmonary emphysema, unspecified emphysema type Chronic anticoagulation Encounter for long-term (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 of anticoagulants PCO (posterior capsular opacification), left After-cataract, unspecified Pseudophakia of both eyes Lens replaced by other means Hypomagnesemia Disorders of magnesium metabolism Hypoproteinemia Other disorders of plasma protein metabolism Left renal stone PAC (premature atrial contraction) Supraventricular premature beats 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 Profound impairment, one eye, Impairment level not further specified Lumbar foraminal stenosis Spinal stenosis, lumbar region, without neurogenic claudication History of [id number] 09-30-2020 Uterine leiomyoma, unspecified location Atherosclerosis of abdominal aorta Atherosclerosis of aorta Hyperthyroidism Thyrotoxicosis without mention of goiter or other cause, without mention of thyrotoxic crisis or storm Other optic atrophy, left eye Posterior capsular opacification non visually significant, both eyes-L>R Other after-cataract, not obscuring vision Presence of Watchman left atrial appendage closure device Orthostasis Orthostatic hypotension Sacroiliitis Sacroiliitis, not elsewhere classified Iron deficiency anemia, unspecified iron deficiency anemia type Osteoarthritis of left knee, unspecified osteoarthritis type Caffeine use Calcification of aorta Atherosclerosis of aorta Odynophagia Dysphagia, unspecified Family history of hypertension in mother History of CVA (cerebrovascular accident) Transient ischemic attack (TIA), and cerebral infarction without residual deficits documented in this encounter [facility]08-07-2025 History of Present illness Narrative* Francesca Ortiz - 05/30/2025 11:30 AM EDT Nurse Note: Review of Systems Constitutional: Negative for fatigue, fever and unexpected weight change. HENT: No difficulty swallowing No change in voice Respiratory: Negative for cough, shortness of breath and wheezing. Cardiovascular: Negative for chest pain, palpitations and leg swelling. Gastrointestinal: Negative for constipation, diarrhea, nausea and vomiting. Neurological: Positive for numbness. Negative for tremors and weakness. Psychiatric/Behavioral: Negative for sleep disturbance. The patient is not nervous/anxious. Nursing Assessment: Physical Exam * Dawn Uriarte, DPM - 05/30/2025 11:30 AM EDTAssociated Order(s): LOWER EXTREMITY INJECTION: left plantar fascia Post-Procedure Diagnose(s): Plantar fasciitis; Pain of left foot Patient Elena Galeano Date: 05/30/2025 Subjective: Elena is here for follow up of left 4th toe pain. She notes that the toe still hurts.Also has heel pain. History This started 1mo ago. She has seen dr. Shipley already. Notes she had some pus come out of it. She hadan I and D on this jun History She did get her PICC and is getting antibiotics per dr. Shipley. She had her MRI as well. She feels like the toe is filling with fluid again. History She goes to see dr. shipley tomorrow. Waiting on approval for PICC. History She is on updated antibiotics per dr. Shipley. She notes she is doing ok. She is on augmentin History that the toe is improving, but something is happening on the underside of the toe. History of the left 4th toe. She notes that she is on her 2nd round of keflex. She has had an xray a few days ago and some purulence drained from the toe a few days ago. A culture is pending. She notes that the toe has been bad for 3-4 months, but she really has had problems on and off for about a month. She does not remember any kind of trauma. Allergies Allergen Reactions Nsaids Has CKD-3a, and Anemia Current Outpatient Medications Medication Sig Albuterol (Ventolin HFA) 108 (90 Base) MCG/ACT Aero Soln inhaler Inhale 2 puffs every 6 hours as needed for Wheezing. Allopurinol 100 MG tablet Take 1 tablet by mouth daily. Aspirin (SB Low Dose ASA EC) [address] tablet Take 1 tablet by mouth daily with breakfast. OTC buPROPion (Wellbutrin XL) 300 MG tablet XL Take 1 tablet by mouth every morning before breakfast. Cancel previous refills carveDILOL (Coreg) 12.5 MG tablet Take 1 tablet by mouth 2 times daily with meals. Cancel previous refills Cetirizine 10 MG tablet Take 1 tablet by mouth daily. OTC CUSTOM MEDICATION The patient requires a Handicap placard for 5 years, as she is unable to walk more than 200 feet without stopping to rest, due to her medical conditions. cyanocobalamin 1000 MCG tablet Chew 1 tab q daily. Cancel previous refills Escitalopram (Lexapro) 10 MG tablet Take 1 tablet by mouth daily. Cancel previous refills Evolocumab (Repatha SureClick) 140 MG/ML Solution Auto-injector injection Inject 1 mL under the skin every 14 days. SATURDAYS fenofibrate 160 MG tablet Take 1 tablet by mouth daily. Cancel previous refills fluticasone (Flonase Allergy Relief) 50 MCG/ACT Suspension nasal spray 2 sprays by Nasal route daily as needed. OTC Folic acid 1 MG tablet Take 1 tablet by mouth daily. Cancel previous refills Lisinopril 5 MG tablet Take 1 tablet by mouth daily. Cancel previous refills magnesium oxide 400 (240 Mg) MG Take 1 tablet by mouth 2 times daily with meals. omega-3 acid ethyl esters 1 g capsule Take 2 capsules by mouth 2 times daily. Cancel previous refills Pantoprazole (Protonix) [address] tablet DR Take 1 tablet by mouth 2 times daily (take before meals). Cancel previous refills traZODone 100 MG tablet Take 1 tablet by mouth at bedtime. Cancel previous refills triamterene-hydrochlorothiazide (Dyazide) 37.5-25 MG per capsule Take 1 capsule by mouth daily. Cancel previous refills Diazepam 5 MG tablet Take 1 tablet by mouth 3 times daily. Trial of med Phenylephrine 2.5 % Solution Apply 1 drop to eye. proparacaine 0.5 % Solution Apply 1 drop to eye. tropicamide 1 % Solution Apply 1 drop to eye. Past Medical History: Diagnosis Date A-fib watchman device place per [facility] Arrhythmia Arthritis ASCUS of cervix with negative high risk HPV B12 deficiency Bradycardia Carotid stenosis, bilateral-Right 30%, and left 60% Central retinal artery occlusion of left eye CKD stage 3a, GFR 45-59 ml/min CLL (chronic lymphocytic leukemia) 2011 [id number] on 09-30-2020 Depression Diffuse non-Hodgkin's lymphoma chemotherapy Folate deficiency GERD (gastroesophageal reflux disease) Gout pt denies Hiatal hernia pt denies Hyperlipidemia LDL goal <70 Hypertension Hyponatremia Iron deficiency anemia Non-Hodgkin lymphoma 2011 in remission PERCY (obstructive sleep apnea) PVC's (premature ventricular contractions) 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 (blindness) Type 2 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 disease, without long-term current use of insulin Past Surgical History: Procedure Laterality Date ARTHROPLASTY KNEE TOTAL Left 11/12/2024 Laterality: Left; Surgeon: Gonsalo Blackwood MD; Location: [facility] OR EGD DIAGNOSTIC 10/29/2024 ARTHRODESIS SACROILIAC JOINT MINIMALLY INVASIVE W/ TRANSFIXING DEVICE Right 05/03/2024 Laterality: Right; Surgeon: Isreal Sigala MD; Location: [facility] OR FLUOROSCOPY IN OR Right 05/03/2024 Laterality: Right; Surgeon: Isreal Sigala MD; Location: [facility] OR I&D BURSA FOOT Left 07/08/2023 Laterality: Left; Surgeon: Dawn Uriarte DPM; Location: [facility] OR INJECTION NERVE OTHER PERIPHERAL Left 12/16/2022 Laterality: Left; Surgeon: Isreal Sigala MD; Location: [facility] OR GUIDANCE FLUOROSCOPIC NEEDLE OR CATHETER PLACEMENT FOR SPINE INJECTION ADD-ON PX Left 12/16/2022 Laterality: Left; Surgeon: Isreal Sigala MD; Location: [facility] OR SUSPENSION URETHRA/URETHROVESICAL FEMALE OPEN W/ SYNTHETIC MATERIAL (SLING) Midline 08/31/2022 Laterality: Midline; Surgeon: Dariusz Rangel MD; Location: [facility] OR CYSTOURETHROSCOPY W/ DILATION BLADDER Midline 08/31/2022 Laterality: Midline; Surgeon: Dariusz Rangel MD; Location: [facility] OR COLPORRHAPHY ANTEROPOSTERIOR REPAIR CYSTOCELE & RECTOCELE Midline 08/31/2022 Laterality: Midline; Surgeon: Dariusz Rangel MD; Location: [facility] OR ARTHRODESIS SACROILIAC JOINT MINIMALLY INVASIVE W/ TRANSFIXING DEVICE Left 06/17/2022 Laterality: Left; Surgeon: Isreal Sigala MD; Location: [facility] OR GUIDANCE FLUOROSCOPIC NEEDLE OR CATHETER PLACEMENT FOR SPINE INJECTION ADD-ON PX Left 06/17/2022 Laterality: Left; Surgeon: Isreal Sigala MD; Location: [facility] OR EGD W/ DILATION BALLOON N/A 12/01/2021 Laterality: N/A; Surgeon: Indra Parrish DO; Location: [facility] ENDOSCOPY SHOULDER ARTHROSCOPY Left 06/18/2021 REMOVAL CENTRAL VENOUS ACCESS DEVICE TUNNELED W/ PORT PUMP Left 09/13/2019 Laterality: Left; Surgeon: Eduardo Muñoz MD; Location: [facility] INTERVENTIONAL RADIOLOGY (VIR) EGD W/ DILATION BALLOON N/A 06/30/2018 Laterality: N/A; Surgeon: Indra Parrish DO; Location: [facility] ENDOSCOPY EGD DIAGNOSTIC N/A 04/07/2018 Laterality: N/A; Surgeon: Wilner Leigh MD; Location: [facility] ENDOSCOPY COLONOSCOPY DIAGNOSTIC N/A 04/07/2018 Laterality: N/A; Surgeon: Wilner Leigh MD; Location: [facility] ENDOSCOPY KNEE REPLACEMENT Right 05/2015 done at [place]--CC ARTHROPLASTY KNEE TOTAL Right 04/2015 INSERTION PICC W/ PORT PUMP 2014 power port COLONOSCOPY DIAGNOSTIC 2006 SALPINGO-OOPHORECTOMY OPEN N/A 1983 APPENDECTOMY OPEN 1983 TONSILLECTOMY ADENOIDECTOMY 1968 EGD DIAGNOSTIC 10 months ago OTHER SURGICAL Watchman Device -placed 11/24/2023 Social History Occupational History Employer: RETIRED Tobacco Use Smoking status: Former Current packs/day: 0.00 Average packs/day: 0.8 packs/day for 35.0 years (26.3 ttl pk-yrs) Types: Cigarettes Start date: 04/23/1978 Quit date: 04/23/2013 Years since quittin.1 Passive exposure: Past Smokeless tobacco: Never Vaping Use Vaping status: Never Used Substance and Sexual Activity Alcohol use: Yes Alcohol/week: 3.0 standard drinks of alcohol Types: 3 Cans of beer per week Comment: Hx ETOH abuse Drug use: Never Sexual activity: Not Currently Partners: Male control/protection: Menopause ROS: Review of Systems Nurse Note: Review of Systems Constitutional: Negative for fatigue, fever and unexpected weight change. HENT: No difficulty swallowing No change in voice Respiratory: Negative for cough, shortness of breath and wheezing. Cardiovascular: Negative for chest pain, palpitations and leg swelling. Gastrointestinal: Negative for constipation, diarrhea, nausea and vomiting. Neurological: Positive for numbness. Negative for tremors and weakness. Psychiatric/Behavioral: Negative for sleep disturbance. The patient is not nervous/anxious. Nursing Assessment: Physical Exam Objective: Vitals: 05/30/25 1110 BP: 124/82 Pulse: 70 Objective: Vascular: Dorsalis pedis and posterior tibial pulses are readilly palpable and graded at 2/4 left. Dermatological: Left 4th toe with mild swelling and no erythema. No ulceration Pain on pressure No drainage MSK: + pain left heel at the insertion of the medial band of the plantar fascia Assessment: Sarah was seen today for pain and follow-up. Diagnoses and all orders for this visit: Skin ulcer of fourth toe of left foot, limited to breakdown of skin - MRI FOOT LEFT WITHOUT CONTRAST; Future Plantar fasciitis - LOWER EXTREMITY INJECTION: left plantar fascia Pain of left foot - LOWER EXTREMITY INJECTION: left plantar fascia acute complicated, limb threatening diagnosis Plan: Patient was seen and evaluated today Unique foot and ankle imaging reviewed from 05/10/25 Dr. Shipley notes reviewed HbA1c reviewed- normal MRI left foot to evaluate the 4th toe for possible surgery Dry band aid on irritated skin No culture Re: plantar fasciitis- unrelated to the 4th toe No barefoot Ice prn We discussed conservative alternatives, along with risks and benefits of a cortisone injection today. The decision to give the patient an injection today was based off of the physical examination anddiagnosis and was determined to be appropriate. The patient signed an informed consent to be given the injection. Injection # 1 left heel LOWER EXTREMITY INJECTION: left plantar fascia Date/Time: 05/30/2025 11:30 AM Performed by: Dawn Uriarte DPM Authorized by: Dawn Uriarte DPM Supporting Documentation Indications: pain Procedure Details: Procedure: tendon sheath / ligament injection Location: foot - left plantar fascia Needle size: 25 G Approach: plantar (medial-plantar) Medication Verification: I have personally verified and performed the final check of the medication(s) used in this procedure prior to administration. The following items were included during the verification process for medication(s) administered: drug name, strength, volume, expiration, physical integrity and appearance of the medication(s). Medications administered: 0.5 mL triamcinolone 40 MG/ML; 2 mg dexAMETHasone 4 MG/ML Patient tolerance: patient tolerated the procedure well with no immediate complications Consent: Consent was obtained prior to the procedure after discussion of the risks, benefits and alternatives, and expected outcomes were discussed with the patient. The possibilities of reaction to medication, bleeding, infection, the need for additional procedures, failure to diagnosis a condition, and creating a complication requiring operation were discussed with the patient. The patient concurred with the proposed plan, giving consent. Preparation: Patient was prepped in the usual sterile fashion. The patient was prepped with chlorhexidine. documented in this [facility] [place]08-07-2025 Instructions* Patient Instructions* Dawn Uriarte DPM - 05/30/2025 11:30 AM EDT Plantar Fasciitis Definition: Plantar Fasciitis is a persistent pain located on the plantar(bottom) of the heel and the medial(inside) of the foot. The plantar fascia is a fibrous, tendon-like structure that extends the entire length of the bottom of the foot, beginning at the heel bone and extending to the base of the toes. During excessive activity the plantar fascia can become irritated, inflamed and may even tear if the area is subjected to repetitive stress. Heel contact during the gait cycle exposes a specific area tothis stress. This area is known as the medial-plantar aspect of the heel, where the plantar fascia attaches to the heel bone. Symptoms: The pain resulting from this injury is most noticeable in the morning when the first few steps are taken and subsides with prolonged walking. Likewise, during activity the pain will occur in the beginning of the exercise routine and subsides as the activity continues. Short Term Treatment: In determining the proper treatment for Plantar Fasciitis it is important that you know and eliminate the causative factors of the injury. A complete medical history analysis, foot examination, and gait analysis. X-rays are sometimes taken to rule out the cause of heel pain. Stretching Rest and reduction in the intensity of exercise Anti-inflammatory medication or cortisone injections to alleviate pain in acute cases. Ice Most patients respond to these forms of treatments. Only a small percentage of patients require surgery. Stretching Exercise: Belt Stretching: Before you get of bed in the morning, place a belt around the ball of your foot and pull back. Hold stretch for about 30 seconds and repeat 3 times. documented in this [facility] [place]07-30-2025 Instructions* Patient Instructions* Ciro Lyles MD - 05/22/2025 11:32 AM EDT Systane Complete solution instill 1 drop 3 times daily Both Eyes. If you have any questions please contact our office at [phone]. After office hours or on the weekend, please call Dr. Lyles on his cell phone at [phone]. [facility] NoteHNO ID: [id number] Author: CIRO LYLES MD Service: ? Author Type: Physician Type: Progress Notes Filed: 05/22/2025 11:35 Note Text: ASSESSMENT/PLAN: 1. Status post eye surgery - ICD9: V45.69, ICD10: Z98.890 (primary diagnosis) YAG Laser Right Eye Follow up with Dr. Garza for refraction and glasses 2. Pseudophakia of both eyes - ICD9: V43.1, ICD10: Z96.1 Intraocular lens well centered 3. Central retinal artery occlusion, left eye - ICD9: 362.31, ICD10: H34.12 Monitor 4. Optic atrophy of left eye - ICD9: 377.10, ICD10: H47.20 Monitor [facility]yles [facility] History of Present illness Narrative* Ciro Lyles MD - 05/22/2025 11:31 AM EDT ASSESSMENT/PLAN: 1. Status post eye surgery - ICD9: V45.69, ICD10: Z98.890 (primary diagnosis) YAG Laser Right Eye Follow up with Dr. Garza for refraction and glasses 2. Pseudophakia of both eyes - ICD9: V43.1, ICD10: Z96.1 Intraocular lens well centered 3. Central retinal artery occlusion, left eye - ICD9: 362.31, ICD10: H34.12 Monitor 4. Optic atrophy of left eye - ICD9: 377.10, ICD10: H47.20 Monitor Ciro Lyles MD.opht [facility] History of Present illness Narrative* Nilay Mtz - 05/20/2025 1:00 PM EDT Nurse Note: Review of Systems Constitutional: Positive for fatigue. HENT: Positive for trouble swallowing. Eyes: Positive for visual disturbance. Respiratory: Positive for apnea. Endocrine: Positive for cold intolerance. Musculoskeletal: Positive for back pain. Hematological: Bruises/bleeds easily. Psychiatric/Behavioral: The patient is nervous/anxious. Nursing Assessment: Physical Exam Thank you for the referral of Elena Galeano. As you know, she is a very pleasant 65 y.o. femalewho presents with lower back pain. The patient began to notice this pain generator gradually. Elena does not recall an inciting event. Pain is described as Aching and is currently rated 4/10, and at it's most severe is rated 8/10. Pain is increased with standing and walking and is relieved by sitting. The patient states that pain is worst during activity at times. The patient denies numbness/tingling. Elena denies weakness. The patient denies bowel/bladder incontinence. Treatment modalitiesthat have been used include PT in december and January, chiropractic, . The patient admits injection therapy, Dr. Sigala performed injection patient is not sure what exactly the injection were. The patient does report spine surgery. Ms. Galeano noticed decreased pain after surgery. Diagnostic studies include XR in April of 2025. Patient denies tobacco use. Audit-C Questionnaire How often do you have a drink containing alcohol? (0) never 2. How many standard drinks containing alcohol do you have on a typical day? (0) 1 or 2 3. How often do you have six or more drinks on one occasion? (0) never *A score of 3 or more in women or 4 or more in men is a positive score that requires education. * Katina William APRN-JULISSA - 05/20/2025 1:00 PM EDT Nurse Note: Review of Systems Constitutional: Positive for fatigue. HENT: Positive for trouble swallowing. Eyes: Positive for visual disturbance. Respiratory: Positive for apnea. Endocrine: Positive for cold intolerance. Musculoskeletal: Positive for back pain. Hematological: Bruises/bleeds easily. Psychiatric/Behavioral: The patient is nervous/anxious. Nursing Assessment: Physical Exam Thank you for the referral of Elena Galeano. As you know, she is a very pleasant 65 y.o. femalewho presents with lower back pain. The patient began to notice this pain generator gradually. Elena does not recall an inciting event. Pain is described as Aching and is currently rated 4/10, and at it's most severe is rated 8/10. Pain is increased with standing and walking and is relieved by sitting. The patient states that pain is worst during activity at times. The patient denies numbness/tingling. Elena denies weakness. The patient denies bowel/bladder incontinence. Treatment modalitiesthat have been used include PT in december and January, chiropractic, . The patient admits injection therapy, Dr. Sigala performed injection patient is not sure what exactly the injection were. The patient does report spine surgery. Ms. Galeano noticed decreased pain after surgery. Diagnostic studies include XR in April of 2025. Patient denies tobacco use. Audit-C Questionnaire How often do you have a drink containing alcohol? (0) never 2. How many standard drinks containing alcohol do you have on a typical day? (0) 1 or 2 3. How often do you have six or more drinks on one occasion? (0) never *A score of 3 or more in women or 4 or more in men is a positive score that requires education. Past Medical History: Diagnosis Date A-fib watchman device place per [facility] Arrhythmia Arthritis ASCUS of cervix with negative high risk HPV B12 deficiency Bradycardia Carotid stenosis, bilateral-Right 30%, and left 60% Central retinal artery occlusion of left eye CKD stage 3a, GFR 45-59 ml/min CLL (chronic lymphocytic leukemia) 2012 [id number] on 09-30-2020 Depression Diffuse non-Hodgkin's lymphoma chemotherapy Folate deficiency GERD (gastroesophageal reflux disease) Gout pt denies Hiatal hernia pt denies Hyperlipidemia LDL goal <70 Hypertension Hyponatremia Iron deficiency anemia Non-Hodgkin lymphoma 2012 in remission PERCY (obstructive sleep apnea) PVC's (premature ventricular contractions) 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 (blindness) Type 2 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 disease, without long-term current use of insulin Past Surgical History: Procedure Laterality Date ARTHROPLASTY KNEE TOTAL Left 11/12/2024 Laterality: Left; Surgeon: Gonsalo Blackwood MD; Location: [facility] OR EGD DIAGNOSTIC 10/29/2024 ARTHRODESIS SACROILIAC JOINT MINIMALLY INVASIVE W/ TRANSFIXING DEVICE Right 05/03/2024 Laterality: Right; Surgeon: Isreal Sigala MD; Location: [facility] OR FLUOROSCOPY IN OR Right 05/03/2024 Laterality: Right; Surgeon: Isreal Sigala MD; Location: [facility] OR I&D BURSA FOOT Left 07/08/2023 Laterality: Left; Surgeon: Dawn Uriarte DPM; Location: [facility] OR INJECTION NERVE OTHER PERIPHERAL Left 12/16/2022 Laterality: Left; Surgeon: Isreal Sigala MD; Location: [facility] OR GUIDANCE FLUOROSCOPIC NEEDLE OR CATHETER PLACEMENT FOR SPINE INJECTION ADD-ON PX Left 12/16/2022 Laterality: Left; Surgeon: Isreal Sigala MD; Location: [facility] OR SUSPENSION URETHRA/URETHROVESICAL FEMALE OPEN W/ SYNTHETIC MATERIAL (SLING) Midline 08/31/2022 Laterality: Midline; Surgeon: Dariusz Rangel MD; Location: [facility] OR CYSTOURETHROSCOPY W/ DILATION BLADDER Midline 08/31/2022 Laterality: Midline; Surgeon: Dariusz Rangel MD; Location: [facility] OR COLPORRHAPHY ANTEROPOSTERIOR REPAIR CYSTOCELE & RECTOCELE Midline 08/31/2022 Laterality: Midline; Surgeon: Dariusz Rangel MD; Location: [facility] OR ARTHRODESIS SACROILIAC JOINT MINIMALLY INVASIVE W/ TRANSFIXING DEVICE Left 06/17/2022 Laterality: Left; Surgeon: Isreal Sigala MD; Location: [facility] OR GUIDANCE FLUOROSCOPIC NEEDLE OR CATHETER PLACEMENT FOR SPINE INJECTION ADD-ON PX Left 06/17/2022 Laterality: Left; Surgeon: Isreal Sigala MD; Location: [facility] OR EGD W/ DILATION BALLOON N/A 12/01/2021 Laterality: N/A; Surgeon: Indra Parrish DO; Location: [facility] ENDOSCOPY SHOULDER ARTHROSCOPY Left 06/18/2021 REMOVAL CENTRAL VENOUS ACCESS DEVICE TUNNELED W/ PORT PUMP Left 09/13/2019 Laterality: Left; Surgeon: Eduardo Muñoz MD; Location: [facility] INTERVENTIONAL RADIOLOGY (VIR) EGD W/ DILATION BALLOON N/A 06/30/2018 Laterality: N/A; Surgeon: Indra Parrish DO; Location: [facility] ENDOSCOPY EGD DIAGNOSTIC N/A 04/07/2018 Laterality: N/A; Surgeon: Wilner Leigh MD; Location: [facility] ENDOSCOPY COLONOSCOPY DIAGNOSTIC N/A 04/07/2018 Laterality: N/A; Surgeon: Wilner Leigh MD; Location: [facility] ENDOSCOPY KNEE REPLACEMENT Right 05/2015 done at [place]--CC ARTHROPLASTY KNEE TOTAL Right 04/2015 INSERTION PICC W/ PORT PUMP 2014 power port COLONOSCOPY DIAGNOSTIC 2006 SALPINGO-OOPHORECTOMY OPEN N/A 1983 APPENDECTOMY OPEN 1983 TONSILLECTOMY ADENOIDECTOMY 1967 EGD DIAGNOSTIC 10 months ago OTHER SURGICAL Watchman Device -placed 11/24/2023 Psychological/Psychiatric History: The patient has not been evaluated by a psychiatrist or psychologist. Social History: Social History Socioeconomic History Marital status: Occupational History Employer: RETIRED Tobacco Use Smoking status: Former Current packs/day: 0.00 Average packs/day: 0.8 packs/day for 35.0 years (26.3 ttl pk-yrs) Types: Cigarettes Start date: 04/23/1978 Quit date: 04/23/2013 Years since quittin.0 Passive exposure: Past Smokeless tobacco: Never Vaping Use Vaping status: Never Used Substance and Sexual Activity Alcohol use: Yes Alcohol/week: 3.0 standard drinks of alcohol Types: 3 Cans of beer per week Comment: Hx ETOH abuse Drug use: Never Sexual activity: Not Currently Partners: Male control/protection: Menopause Other Topics Concern Domestic Violence No Social Drivers of Health Financial Resource Strain: Medium Risk (03/26/2025) Overall Financial Resource Strain (CARDIA) Difficulty of Paying Living Expenses: Somewhat hard Food Insecurity: No Food Insecurity (03/26/2025) NCSS - Food Insecurity Worried About Running Out of Food in the Last Year: No Ran Out of Food in the Last Year: No Transportation Needs: No Transportation Needs (03/26/2025) NCSS - Transportation Lack of Transportation: No Personal Safety: Not At Risk (03/26/2025) NCSS - Interpersonal Safety Feels Physically and Emotionally Safe: Yes Physically Hurt by Someone: No Humiliated or Emotionally Abused by Someone: No Housing Stability: Not At Risk (03/26/2025) NCSS - Housing/Utilities Has Housing: Yes Worried About Losing Housing: No Unable to Get Utilities: No Family History: The patient denies any family history of autoimmune or connective tissue disorders. Physical Examination: Vitals: 05/20/25 1242 BP: 186/83 Pulse: 71 SpO2: 96% Constitutional The patient is awake, alert, well developed, well nourished and well groomed. The patient is pleasant and cooperative. The patient is a good historian and is very helpful with the history and physical examination. Head The skull is normocephalic, atraumatic and without masses. The patient's facial expression and facial contours are normal; the parotid glands are not enlarged. The sinuses are non-tender. There is symmetry of the nasolabial folds. There is no facial droop. Eyes The eyelids are without lesions. The sclera is white and the conjunctiva pink. No tearing noted at baseline. No scarring noted. ENT External inspection of ears and nose is without scars, lesions or masses. Hearing appears to be grossly intact. The nasal mucosa is pink and without discharge. The septum is midline. The turbinates are not enlarged. The buccal mucosa is pink; there is no cyanosis. The lips are normal color; there are no ulcers, masses or lesions. The mucosa of the oropharynx is moist, The tongue is midline. Neck The neck is supple and the trachea is midline. No erythema or visible venous distension. No scaringnoted. Respiratory The patient is relaxed and breathes without effort. The patient is not cyanotic and does not use the accessory muscles of respiration. The chest expands symmetrically upon inspiration. Cardiovascular There is no pitting edema of the lower extremities. Extremities are warm. Gastrointestinal The abdomen is soft and nontender; there is no guarding or rigidity. Neurologic Cranial Nerves 2-12 are grossly intact. The deep tendon reflexes of the in bilateral upper and bilateral lower extremities are symmetrical;. Plantar reflexes (Babinski): toes are downgoing. Cerebellar function is normal; Romberg's test is negative. The gait is abnormal. Sensory testing for pain (pin prick), light touch, and proprioception is intact in bilateral upper and bilateral lower extremities dermatome/s. No ankle or wrist clonus present. Negative Aggarwal's sign. Motor in bilateral upper and bilateral lower extremities is 5/5. Psychiatric The patient is oriented to person, place, and time. Speech is fluent and words are clear. Thought processes are coherent, insight is good. There are no obsessive, compulsive, phobic or delusional thoughts; there are no illusions or hallucinations. The patient's fund of knowledge: awareness of current events and past history is appropriate for age. The patient's higher cognitive functions are intact. The patient's mood is neutral and the affect appropriate MSK L-Spine Assessment Straight Leg Test: Negative Bilateral Increased low back pain with standing and walking, resolves immediately with forward flexion and sitting Facet Tenderness: Bilateral L2-4 Facet Loading: Bilateral The patient has Normal difficulty transitioning from sitting to standing. The patient has an antalgic gait. The lumbar spine demonstrates a flexion biased curve. Palpation reveals tenderness over theBilateral lumbar spine. Lumbosacral range of motion is limited in flexion, extension, Bilateral rotation, Bilateral lateral bend. There is no deformity to the lumbosacral spine. MAXWELL Kalin test produces pain in the Bilateral lumbar spine. There is no abnormality in muscle tone in the lumbosacralspine. Trigger points are not present in the lumbosacral spine musculature. Muscle strength is 5/5 in the bilateral lower extremities. moderate pain and dysthesia over bilateral superior cluneal nerves Assessment: ICD-10-CM 1. Spinal stenosis, lumbar region, with neurogenic claudication M48.062 2. 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 Other low back pain M54.59 4. Encounter for medication monitoring Z51.81 65 y.o. female w/PMHx of right and left SIJ fusion with Dr Sigala, hx of alcohol abuse, who presents for evaluation of bilateral low back pain Injections: previous injections of SIJ prior to fusion with Dr [facility]: no prior medications reported Imagin05/06/25 lumbar xray There are 5 lumbar vertebral segments. The visualized osseous structures are osteopenic. There is no acute osseous lesion or fracture. There is grade 1 retrolisthesis of L2 on L3 and grade 1 anterolisthesis of L5 on S1. No instability is detected on flexion or extension. These changes are stable in the interval since the prior study There is a normal lumbar lordosis There is no abnormal curvature. There is a stable mild compression fracture at L2. There is mild loss of intervertebral disc height throughout the entire lumbar spine. This is most pronounced at the L4-L5 level where there are mild degenerative sclerotic endplate changes and small osteophytes. There are degenerative facet joint changes are most pronounced in the lower lumbar spine. There has been surgical fusion of the bilateral SI joints. The fusion hardware appears intact and unchanged. The visualized soft tissues are unremarkable. There is calcified atherosclerotic change of the abdominal aorta Referrals/consults: Dr Sigala PT: completed 6 weeks of PT at [facility] 03/17 without benefit Labs: 04/04/25 Cr 0.65 eGFR >90 The patient has had over 3 months of moderate to severe low back pain with functional impairment and inadequate response to conservative care including NSAIDS (unless there are contraindication such as concurrent blood thinners), multiple oral or topical pain medications, and home exercise program/physical therapy. Patient has completed >6 weeks of guided home exercise program and/or formal physical therapy program without relief of their symptoms. I have reviewed the imaging of the lumbar spine and no red flags were identified. The Oswestry Disability Index was completed, and the patient scored a 22%. The patient noted the following: the patient has moderate or greater pain, the patient has pain that limits and/or needs help to manage their personal care, pain prevents from lifting heavy weights, pain prevents patient from walking 0.5 mile or less, the patient has pain that prevents them from standing for 60 minutes or less, Pain limits the patient to 6 hours of sleep or less, the patient's social life is restricted by pain, and pain restricts journeys of 1 hour or less Plan: -update lumbar MRI without contrast to assess chronic bilateral low back pain and lumbar stenosis with NC -RESERVATION SALES AGENT reviewed and signed, update UDS today -currently utilizing dual action advil with tylenol with mild relief -continue follow-up with Dr Sigala as planned -defer medication management at this time -follow-up to review lumbar MRI Thank you for the opportunity to participate in the care of your patient. Sincerely, YOAN Wagner documented in this encounterPromedica [facility]07-28-2025 Instructions* Patient Instructions* Linda Wilkerson, CLIENT ENGAGEMENT SPECIALIST - 05/20/2025 1:00 PM EDT Images from the original note were not included. Sacroiliac Pain: Exercises Introduction Here are some examples of exercises for you to try. The exercises may be suggested for a condition or for rehabilitation. Start each exercise slowly. Ease off the exercises if you start to have pain. You will be told when to start these exercises and which ones will work best for you. How to do the exercises Single [id number] stretch Lie on your back with your knees bent and your feet flat on the floor. You can put a small pillow under your head and neck if it is more comfortable. Clasp your hands under one knee and bring the knee to your chest. Keep your other foot flat on the floor. Keep your lower back pressed to the floor. Hold the stretch for at least 15 to 30 seconds. Relax and lower the knee to the starting position. Repeat 2 to 4 times with each leg. To get more stretch, put your other leg flat on the floor while pulling your knee to your chest. Bridging (feet flat) Lie on your back with both knees bent and your feet flat on the floor. Your knees should be bent about 90 degrees. Tighten your belly muscles by pulling your belly button in toward your spine. Keep breathing normally and don't hold your breath. Push your feet into the floor, squeeze your buttocks, and lift your hips off the floor until your shoulders, hips, and knees are all in a straight line. Keep your hips level. Hold for about 6 seconds. Slowly lower your hips back to the floor. Repeat 8 to 12 times. Alternate arm and leg (bird dog) Start on the floor, on your hands and knees. Tighten your belly muscles by pulling your belly button in toward your spine. Be sure you continue to breathe normally and do not hold your breath. Keeping your back and neck straight, raise one arm off the floor and hold it straight out in front of you. Be careful not to let your shoulder drop down, because that will twist your trunk. Hold for about 6 seconds, then lower your arm and switch to your other arm. Over time, work up to holding for 10 to 30 seconds each time. Repeat 8 to 12 times with each arm. When you feel steady and strong doing this exercise with your arms, try doing the exercise with your legs instead. Raise one leg and hold it straight out behind you. Be careful not to let your hip drop down, because that will twist your trunk. When holding your leg straight out becomes easier, try raising your opposite arm at the same time. Clamshell for back problems Lie on your side with a pillow under your head. Keep your feet and knees together and your knees bent. Raise your top knee, but keep your feet together. Do not let your hips roll back. Your legs should open up like a clamshell. Hold for about 6 seconds. Slowly lower your knee back down. Repeat 8 to 12 times. Switch to your other side and repeat the steps. Hamstring stretch in a doorway Sit on the floor close to a doorway. Be sure to stretch your affected leg first. Lie down with your other leg through the doorway. Slide your affected leg up the wall to straighten your knee. Don't point your toes. You should feela gentle stretch down the back of your leg. Be sure to: Hold the stretch for at least 1 minute. Then over time, try to lengthen the time you hold the stretch to as long as 6 minutes. Repeat 2 to 4 times. It's a good idea to repeat these steps with your other leg. To stretch your right leg, scoot to the right side of the doorway. To stretch your left leg, scoot to the left side of the doorway. Keep both knees straight. Keep your back flat and your other heel on the floor. If you do not have a place to do this exercise in a doorway, there is another way to do it: Lie on your back, and bend the knee of your affected leg. Loop a towel under the ball and toes of that foot, and hold the ends of the towel in your hands. Straighten your knee as you raise that foot into the air. Slowly pull back on the towel. You shouldfeel a gentle stretch down the back of your leg. Hold the stretch for 15 to 30 seconds. Or even better, hold the stretch for 1 minute if you can. Repeat 2 to 4 times. It's a good idea to repeat these steps with your other leg. Lower abdominal strengthening Lie on your back with your knees bent and your feet flat on the floor. Tighten your belly muscles by pulling your belly button in toward your spine. Keep breathing normally and don't hold your breath. Lift one foot off the floor and bring your knee toward your chest, so that your knee is straight above your hip and your leg is bent like the letter L. Lift the other knee up to the same position. Lower one leg at a time to the starting position. Keep alternating legs until you have lifted each leg 8 to 12 times. Keep your belly muscles tight and your back still as you are moving your legs. Keep breathing normally. Piriformis stretch (from legs straight) Lie on your back with your legs straight. Lift your affected leg and bend your knee. With your opposite hand, gently pull your knee toward your opposite shoulder. You should feel the stretch in your buttock and hip. Hold the stretch for 15 to 30 seconds. Repeat 2 to 4 times. It's a good idea to repeat these steps with your other leg. Follow-up care is a [place] part of your treatment and safety. Be sure to make and go to all appointments, and call your doctor if you are having problems. It's also a good idea to know your test resultsand keep a list of the medicines you take. Current as of: May 23, 2024 Content Version: 14.3 2023 [employer]. Care instructions adapted under license by your healthcare professional. If you have questions about a medical condition or this instruction, always ask your healthcare professional. [employer] disclaims any warranty or liability for your use of this information. documented in this encounterPromedica Memorial Hospital07-28-2025 NotePROCEDURE: XR TOE 4TH LEFT 2+ VIEWS COMPARISON: None. HISTORY: pain and swelling 4th toe FINDINGS: BONES:No fracture, acute abnormality, or significant arthropathy. SOFT TISSUES:Negative. No visible soft tissue swelling. EFFUSION:None visible. OTHER: Negative. IMPRESSION: No acute fractureHudson County Meadow[facility]07-24-2025 History of Present illness Narrative* Joycelyn Calhoun MA - 05/16/2025 1:00 PM EDT Nurse Note: Review of Systems Constitutional: Negative for fatigue, fever and unexpected weight change. HENT: No difficulty swallowing No change in voice Respiratory: Negative for cough, shortness of breath and wheezing. Cardiovascular: Negative for chest pain, palpitations and leg swelling. Gastrointestinal: Negative for constipation, diarrhea, nausea and vomiting. Neurological: Negative for tremors, weakness and numbness. Psychiatric/Behavioral: Negative for sleep disturbance. The patient is not nervous/anxious. Nursing Assessment: Physical Exam * Dawn Uriarte DPM - 05/16/2025 1:00 PM EDT Patient Elena Galeano Date: 05/16/2025 Subjective: Elena is here for follow up of left 4th toe pain. This started 1mo ago. She has seen dr. Shipley already. Notes she had some pus come out of it. She had an I and D on this jun History She did get her PICC and is getting antibiotics per dr. Shipley. She had her MRI as well. She feels like the toe is filling with fluid again. History She goes to see dr. shipley tomorrow. Waiting on approval for PICC. History She is on updated antibiotics per dr. Shipley. She notes she is doing ok. She is on augmentin History that the toe is improving, but something is happening on the underside of the toe. History of the left 4th toe. She notes that she is on her 2nd round of keflex. She has had an xray a few days ago and some purulence drained from the toe a few days ago. A culture is pending. She notes that the toe has been bad for 3-4 months, but she really has had problems on and off for about a month. She does not remember any kind of trauma. Allergies Allergen Reactions Nsaids Has CKD-3a, and Anemia Current Outpatient Medications Medication Sig Albuterol (Ventolin HFA) 108 (90 Base) MCG/ACT Aero Soln inhaler Inhale 2 puffs every 6 hours as needed for Wheezing. Allopurinol 100 MG tablet Take 1 tablet by mouth daily. Aspirin (SB Low Dose ASA EC) [address] tablet Take 1 tablet by mouth daily with breakfast. OTC buPROPion (Wellbutrin XL) 300 MG tablet XL Take 1 tablet by mouth every morning before breakfast. Cancel previous refills carveDILOL (Coreg) 12.5 MG tablet Take 1 tablet by mouth 2 times daily with meals. Cancel previous refills Cetirizine 10 MG tablet Take 1 tablet by mouth daily. OTC CUSTOM MEDICATION The patient requires a Handicap placard for 5 years, as she is unable to walk more than 200 feet without stopping to rest, due to her medical conditions. cyanocobalamin 1000 MCG tablet Chew 1 tab q daily. Cancel previous refills Escitalopram (Lexapro) 10 MG tablet Take 1 tablet by mouth daily. Cancel previous refills Evolocumab (Repatha SureClick) 140 MG/ML Solution Auto-injector injection Inject 1 mL under the skin every 14 days. SATURDAYS fenofibrate 160 MG tablet Take 1 tablet by mouth daily. Cancel previous refills fluticasone (Flonase Allergy Relief) 50 MCG/ACT Suspension nasal spray 2 sprays by Nasal route daily as needed. OTC Folic acid 1 MG tablet Take 1 tablet by mouth daily. Cancel previous refills Lisinopril 5 MG tablet Take 1 tablet by mouth daily. Cancel previous refills magnesium oxide 400 (240 Mg) MG Take 1 tablet by mouth 2 times daily with meals. omega-3 acid ethyl esters 1 g capsule Take 2 capsules by mouth 2 times daily. Cancel previous refills Pantoprazole (Protonix) [address] tablet DR Take 1 tablet by mouth 2 times daily (take before meals). Cancel previous refills Phenylephrine 2.5 % Solution Apply 1 drop to eye. proparacaine 0.5 % Solution Apply 1 drop to eye. traZODone 100 MG tablet Take 1 tablet by mouth at bedtime. Cancel previous refills triamterene-hydrochlorothiazide (Dyazide) 37.5-25 MG per capsule Take 1 capsule by mouth daily. Cancel previous refills tropicamide 1 % Solution Apply 1 drop to eye. Diazepam 5 MG tablet Take 1 tablet by mouth 3 times daily. Trial of med Past Medical History: Diagnosis Date A-fib watchman device place per [facility] Arrhythmia Arthritis ASCUS of cervix with negative high risk HPV B12 deficiency Bradycardia Carotid stenosis, bilateral-Right 30%, and left 60% Central retinal artery occlusion of left eye CKD stage 3a, GFR 45-59 ml/min CLL (chronic lymphocytic leukemia) 2011 [id number] on 09-30-2020 Depression Diffuse non-Hodgkin's lymphoma chemotherapy Folate deficiency GERD (gastroesophageal reflux disease) Gout pt denies Hiatal hernia pt denies Hyperlipidemia LDL goal <70 Hypertension Hyponatremia Iron deficiency anemia Non-Hodgkin lymphoma 2012 in remission PERCY (obstructive sleep apnea) PVC's (premature ventricular contractions) 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 (blindness) Type 2 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 disease, without long-term current use of insulin Past Surgical History: Procedure Laterality Date ARTHROPLASTY KNEE TOTAL Left 11/12/2024 Laterality: Left; Surgeon: Gonsalo Blackwood MD; Location: [facility] OR EGD DIAGNOSTIC 10/29/2024 ARTHRODESIS SACROILIAC JOINT MINIMALLY INVASIVE W/ TRANSFIXING DEVICE Right 05/03/2024 Laterality: Right; Surgeon: Isreal Sigala MD; Location: [facility] OR FLUOROSCOPY IN OR Right 05/03/2024 Laterality: Right; Surgeon: Isreal Sigala MD; Location: [facility] OR I&D BURSA FOOT Left 07/08/2023 Laterality: Left; Surgeon: Dawn Uriarte DPM; Location: [facility] OR INJECTION NERVE OTHER PERIPHERAL Left 12/16/2022 Laterality: Left; Surgeon: Isreal Sigala MD; Location: [facility] OR GUIDANCE FLUOROSCOPIC NEEDLE OR CATHETER PLACEMENT FOR SPINE INJECTION ADD-ON PX Left 12/16/2022 Laterality: Left; Surgeon: Isreal Sigala MD; Location: [facility] OR SUSPENSION URETHRA/URETHROVESICAL FEMALE OPEN W/ SYNTHETIC MATERIAL (SLING) Midline 08/31/2022 Laterality: Midline; Surgeon: Dariusz Rangel MD; Location: [facility] OR CYSTOURETHROSCOPY W/ DILATION BLADDER Midline 08/31/2022 Laterality: Midline; Surgeon: Dariusz Rangel MD; Location: [facility] OR COLPORRHAPHY ANTEROPOSTERIOR REPAIR CYSTOCELE & RECTOCELE Midline 08/31/2022 Laterality: Midline; Surgeon: Dariusz Rangel MD; Location: [facility] OR ARTHRODESIS SACROILIAC JOINT MINIMALLY INVASIVE W/ TRANSFIXING DEVICE Left 06/17/2022 Laterality: Left; Surgeon: Isreal Sigala MD; Location: [facility] OR GUIDANCE FLUOROSCOPIC NEEDLE OR CATHETER PLACEMENT FOR SPINE INJECTION ADD-ON PX Left 06/17/2022 Laterality: Left; Surgeon: Isreal Sigala MD; Location: [facility] OR EGD W/ DILATION BALLOON N/A 12/01/2021 Laterality: N/A; Surgeon: Indra Parrish DO; Location: [facility] SHOULDER ARTHROSCOPY Left 06/18/2021 REMOVAL CENTRAL VENOUS ACCESS DEVICE TUNNELED W/ PORT PUMP Left 09/13/2019 Laterality: Left; Surgeon: Eduardo Muñoz MD; Location: [facility] INTERVENTIONAL RADIOLOGY (VIR) EGD W/ DILATION BALLOON N/A 06/30/2018 Laterality: N/A; Surgeon: Indra Parrish DO; Location: [facility] EGD DIAGNOSTIC N/A 04/07/2018 Laterality: N/A; Surgeon: Wilner Leigh MD; Location: [facility] COLONOSCOPY DIAGNOSTIC N/A 04/07/2018 Laterality: N/A; Surgeon: Wilner Leigh MD; Location: [facility] KNEE REPLACEMENT Right 05/2015 done at [place]--CC ARTHROPLASTY KNEE TOTAL Right 04/2015 INSERTION PICC W/ PORT PUMP 2014 power port COLONOSCOPY DIAGNOSTIC 2006 SALPINGO-OOPHORECTOMY OPEN N/A 1983 APPENDECTOMY OPEN 1983 TONSILLECTOMY ADENOIDECTOMY 1968 EGD DIAGNOSTIC 10 months ago OTHER SURGICAL Watchman Device -placed 11/24/2023 Social History Occupational History Employer: RETIRED Tobacco Use Smoking status: Former Current packs/day: 0.00 Average packs/day: 0.8 packs/day for 35.0 years (26.3 ttl pk-yrs) Types: Cigarettes Start date: 04/23/1978 Quit date: 04/23/2013 Years since quittin.0 Passive exposure: Past Smokeless tobacco: Never Vaping Use Vaping status: Never Used Substance and Sexual Activity Alcohol use: Yes Alcohol/week: 3.0 standard drinks of alcohol Types: 3 Cans of beer per week Comment: Hx ETOH abuse Drug use: Never Sexual activity: Not Currently Partners: Male control/protection: Menopause ROS: Review of Systems Nurse Note: Review of Systems Constitutional: Negative for fatigue, fever and unexpected weight change. HENT: No difficulty swallowing No change in voice Respiratory: Negative for cough, shortness of breath and wheezing. Cardiovascular: Negative for chest pain, palpitations and leg swelling. Gastrointestinal: Negative for constipation, diarrhea, nausea and vomiting. Neurological: Negative for tremors, weakness and numbness. Psychiatric/Behavioral: Negative for sleep disturbance. The patient is not nervous/anxious. Nursing Assessment: Physical Exam Objective: Vitals: 05/16/25 1234 BP: 142/64 Pulse: 72 Objective: Vascular: Dorsalis pedis and posterior tibial pulses are readilly palpable and graded at 2/4 left. Dermatological: Left 4th toe with mild swelling and no erythema. No ulceration Assessment: Sarah was seen today for pain. Diagnoses and all orders for this visit: Toe pain, left - XR TOE 4TH LEFT 2+ VIEWS; Future acute complicated, limb threatening diagnosis Plan: Patient was seen and evaluated today Unique foot and ankle imaging reviewed from 05/10/25 Dr. Shipley notes reviewed HbA1c reviewed- normal New xray today to focus on 4th toe only Dr. Uriarte independent interpretation/Impression of results: No FB or bone changes in 4th toe Dry band aid on irritated skin No culture Culture reviewed from 05/10/25 - normal [place] Has left heel pain- will eval in 2 weeks for possible injection Rtc in 2 weeks documented [facility] NoteDate of Procedure 05/15/2025. 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 C/D Ratio Right Eye 0.5. Left Eye 0.6. Disc Right Eye Cupping. Left Eye Pallor. Macula Right Eye Normal. Left Eye Normal. Periphery Right Eye Normal. Left Eye Normal.[id number] NoteDate of Procedure 05/15/2025 [facility] Protocol Safety Checklist A moment of CARE was completed Sign In Sign in communication not applicable due to emergent procedure. Personnel directly involved with the procedure wore the appropriate PEE. Special Equipment: yes. Patient/surrogate stated/verified patient name, date of , relevant allergies, intended procedure. Provider Confirms: Relevant labs, photos, and/or imaging studies have been reviewed. Intended patient and procedure match the source document(s) (e.g. consent, associated studies [imaging, pathology]). Consent obtained and matches the intended procedure. Correct side/site marked and visible. Medications required for procedure verified. Fire risk assessed and interventions discussed. Correct implant(s) confirmed including size and side: N/A. Sign Out All specimens are correctly labeled and sent: N/A. All instruments, equipment, possible retained foreign bodies accounted for. Post-procedure POC communicated to patient or surrogate. Post-procedure POC communicated to patient's multidisciplinary team. Anesthesia 1-2 drops Tetracaine 0.5%. Pre Laser Meds 1-2 drops Tropicamide 1%, 1-2 drops Phenylephrine 2.5%. Laser Paramters Power: 2.4 mj. Total Spots: 26. Post Laser Meds None. Home Going Prescription Patient has drops at home.[facility]07-23-[facility] Instructions* Patient Instructions* Ciro Lyles MD - 05/15/2025 1:28 PM EDT YAG LASER POSTERIOR CAPSULOTOMY WHY IS MY VISION WORSE NOW THAN IT WAS RIGHT AFTER MY CATARACT SURGERY? During cataract surgery, Dr Lyles removes the cloudy lens from the eye. At that time he also removes the front part of a membranous capsule that holds your natural lens. The back part of this capsule(posterior capsule) is left intact and hold the new lens implant in place. In some people this thinposterior capsule gets cloudy and causes a decrease in vision some weeks, months or even years after cataract surgery. CAN MY DOCTOR HELP MY VISION? In order to improve vision, a very small opening must be made in the cloudy posterior capsule. Thisopening now allows a clearer channel for light to focus on your retina. Your vision will improve tothe degree that the cloudy capsule was interfering with clear vision. You may or may not see an immediate improvement in your vision, but it should continue to improve in the days and weeks followingthe laser procedure. HOW DOES THE LASER WORK? Lasers are the instruments that emit a narrow, finely focused beam of light energy. Some lasers work by heating and coagulating tissue; however, the YAG laser does not heat, but rather cuts tissue inside the eye. Ophthalmologists have used these lasers since the early 1969's, and they have been proven extremely safe and effective. SHOULD I HAVE ANY SPECIAL TESTING OR TAKE ANY PRECAUTIONS PRIOR TO THE LASER TREATMENT? If you are taking eye medication on a regular basis, you should continue as normal unless Dr. Lylesspecifically tells you others. The Yag laser posterior capsulotomy is accomplished quickly, with little or no discomfort, no special testing, no hospitalization, no fasting, no shots, no stitches, and no activity restrictions. HOW LONG WILL THE LASER TREATMENT TAKE? Although the laser treatment itself only takes about 15 minutes, you should plan to be in the office for 1-2 hours. Dilating drops will be administered 1 hour prior to the treatment. An additional benefit of these drops is to reduce the chances of a spike in intraocular eye pressure (pressure inside the eye) after the laser procedure. During the time before your procedure, Dr Lyles will check your pre-laser eye pressure and answer any questions you may have concerning the procedure. After the treatment is completed, other eye drops may be administered and you pressure will be checked again perry sure all is well before you leave. WHAT HAPPENS DURING THE LASER TREATMENT? You will be asked to sit in front of an instrument that looks similar to the slit lamp in the exam room. Dr. Lyles will place a special contact lens over your eye to help see inside your eye so he can aim accurately. This lens also help keep you eye open and prevents small eye movements. You will see flashes of light, like a camera flash, and hear the clicking sound of the laser. DOES THE LASER HURT? Dr Lyles or his bus assistant will administer anesthetic drops into your eye. There is minimal, if any,discomfort. Most people feel no pain at all, but in rare cases, some patient reported a pinching-like sensation in the eye. WHAT CAN I EXPECT WHEN THE LASER PROCEDURE IS FINISHED? You will not need to patch you eye post YAG laser. You will be dilated so you will need to bring someone to drive you home. It is normal to have some mild inflammation in your eye which can laser a matter of days. Therefore, your eye might feel scratchy or like there is something in it. It may be slightly red and light sensitive. Occasionally, your eye may ache. If needed, you may use an over thecounter pain reliever until the pain subsides. Please let your doctor know if you cannot tolerate these types of medications. FOLLOW UP AFTER THE LASER? After your Yag laser procedure, you will be asked to return in a few months to check your vision, eye pressure, and the lane of your retina. After the laser treatment, you may experience small floating objects in your field of vision. These are a common occurrence after a Yag laser posterior capsulotomy and should subside within a few months. Of course, should you experience any decrease in vision or pain in or around the eyes, please call our office immediately. Continue: Systane Complete solution instill 1 drop 3 times daily Both Eyes. If you have any questions please contact our office at [phone]. After office hours or on the weekend, please call Dr. Lyles on his cell phone at [phone]. documented in this encounterMi[facility]07-[facility]25 NoteHNO ID: [id number] Author: CIRO LYLES MD Service: ? Author Type: Physician Type: Progress Notes Filed: 05/15/2025 14:00 Note Text: ASSESSMENT/PLAN: 1. 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 2. Pseudophakia of both eyes - ICD9: V43.1, ICD10: Z96.1 Intraocular lens implant in good position Both Eyes. 3. Central retinal artery occlusion, left eye - ICD9: 362.31, ICD10: H34.12 Monitor 4. Optic atrophy of left eye - ICD9: 377.10, ICD10: H47.20 - FUNDUS PHOTOS OU (BOTH EYES) Monitor I have confirmed and edited as necessary the relevant HPI, ophthalmic history, ROS, and the neuro exam findings as obtained by others. I have seen and examined Elena Galeano. I have discussed the case and the management of this patient's care with the Resident/Fellow, if applicable. I also have reviewed and agree with the assessment and plan as stated above and agree with all of its relevant components.[facility]07-23-2025 History of Present illness Narrative* Ciro Lyles MD - 05/15/2025 1:27 PM EDT ASSESSMENT/PLAN: 1. 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 2. Pseudophakia of both eyes - ICD9: V43.1, ICD10: Z96.1 Intraocular lens implant in good position Both Eyes. 3. Central retinal artery occlusion, left eye - ICD9: 362.31, ICD10: H34.12 Monitor 4. Optic atrophy of left eye - ICD9: 377.10, ICD10: H47.20 - FUNDUS PHOTOS OU (BOTH EYES) Monitor I have confirmed and edited as necessary the relevant HPI, ophthalmic history, ROS, and the neuro exam findings as obtained by others. I have seen and examined Elena Galeano. I have discussed thecase and the management of this patient's care with the Resident/Fellow, if applicable. I also havereviewed and agree with the assessment and plan as stated above and agree with all of its relevant c omponents. documented in this encounterMi[facility]07-[facility] History of Present illness Narrative* Myrtle Georges - 05/10/2025 11:00 AM EDT Review of Systems A complete review of systems are negative except those consistent with HPI No fevers, chills or sweats No cough, chest pain No dysphagia, odynophagia No abdominal pain, nausea, vomiting, diarrhea No dysuria, frequency, hematuria No headache, dizziness, focal neurologic complaints No ear pain No sinus pain No rash No weight loss No joint or muscular pain Recent travel history? No * Monse Shipley MD - 05/10/2025 11:00 AM EDT HPI Elena Galeano 63 y.o. female presents today for Toe Pain (4th toe on left foot from great toe. Dr. Uriarte debrided abscess on Sunday 07/15. No ATBs prescribed from him. ) Patient states ID consult appointment in June of 2023 that she is longstanding history of for several months of a left toe infection. She denies any specific trauma or inciting event that started this all. Past medical history includes stroke, AFib, left eye blindness, CLL and diffuse non-Hodgkin's lymphoma history status post chemotherapy s/p 10 yrs ago, GERD, hyperlipidemia, hypertension, DMII per record, fatty liver disease, obstructive sleep apnea, obesity, anemia, history of COVID. 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 Blackwood. History of former tobacco use, not current. No significant alcohol use, occasional. No illicit abx. No animal bites/scratches, no trauma noted, no barefoot outdoor walking. No hx of gout Patient was seen by Podiatry 05/05/2023 due to ingrown toenail of the 4th left toe ongoing issues for about 3 months at that time per notes with 2 courses of Keflex given at that time. Podiatry diagnosed with a patient with concerns for abscess and cellulitis of the distal 4th toe on 05/05 and MRI was ordered but was negative on 05/10 for deeper infection at that time. Patient was treated with local mupirocin and antibiotic oral course of cefixime. Patient was then treated in the May timeframe with a course of Levaquin per Podiatry and then a course of doxycycline for 14 days new x-ray ordered showing soft tissue swelling on 06/14 without clear bony disease. Patient was then seen on 06/28by Podiatry and a repeat MRI was order due to concern for osteomyelitis of the 4th toe per Podiatryalthough radiology report was negative from 06/29. Hx significant for recurrent purulence reported and patient was referred at this visit to Infectious Disease for IV antibiotics as well as plans forsurgical debridement with an incision and drainage pending for 07/08 with consideration of hyperbaric treatment as well noted No known allergies to antibiotics noted ID consult visit 07/04/2023 Patient denies any fevers or chills. Does note some sweats. No systemic symptoms otherwise. Denies any significant left toe pain. She states that there is a pocket in her plantar area that she believes is collecting fluid and then she has intermittent drainage from this area. ID clinic follow up 07/13, she is status post surgery by Podiatry on 07/08 for incision and drainageof left 4th toe with abscess and cellulitis reported. There was no gross purulence for operative report and cultures were taken. Patient here for follow up of culture data. The culture data was obtained yesterday and plans for adjustment of antibiotics today. Patient denies any fevers chills or sweats. Culture shows Staphylococcus epidermidis rare which is likely a contaminant, resistant to clindamycin and penicillin but otherwise sensitive. Patient also grew Finegoldia. AFB and fungal stains/cultures are pending. Patient's foot is currently dressed, no significant pain noted. No other complai nts reported F/up 07/18, on augmentin. Tolerating well. Some left 4th toe pain, sutures in place. F/up podiatry today. No f/c/s. No other symptoms on ROS. Patient was started on Augmentin 07/13 but not note any significant improvement in pain or discomfort. Some blood on drainage but no other discharge and no purulence noted. No tracking cellulitis. ID clinic 07/22, messaged by podiatry to see patient today for iv abx as new abscess formed again on4th toe and I&D again on 07/21 with new cx taken. NO inciting event and no pedicures of recent. No trauma. ID clinic 07/29, for f/up visit. Ongoing drainage pus reported. No pain. No f/c/s. On po augmentinand zyvox, already these well with some minimum diarrhea of 1-2 stools a day. However purulence of left 4th toe continues despite oral antibiotics with intermittent purulent drainage from both dorsaland lateral aspects. Patient notes no other symptoms or toe involvement. Had MRI today which shows abscess but no osteomyelitis. Still no word from insurance about approving home IV infusion. Saw Podiatry yesterday. Infectious disease clinic follow up. Patient was seen by Podiatry on 08/11 with recurrent issues ofswelling and I&D found gelatinous material was removed. Cultures negative. Patient tolerating ertapenem. Patient feels that her toe is improved today. Denies any side effects of the central line or antibiotics reported. No fevers or chills. Infectious disease clinic appointment. Patient is still taking IV antibiotics. Case was discussed with Podiatry since last visit. Patient is on ertapenem and going to infusion center for infusions. Previous pathology shows hyperkeratosis and possible trauma. Patient was seen by Podiatry on 08/23 who felt that the toe is healing well. Patient denies any side effects of the antibiotics. No feverschills or sweats. No abdominal symptoms. There is no describes pain in her foot or drainage reported. Please follow-up appointment. Patient denies any fevers or chills. He is currently off antibiotics.Here for follow-up evaluation. Patient is still with tenderness of the toe especially on the dorsalaspect when there is pressure puts this area but denies any drainage. Patient denies any other systemic symptoms. There are still areas of what the structure was at him out of toe, and then remains unclear if this was part of her soft tissues something foreign as well. Patient continues to deny history of walking barefoot in getting something in her toe or a fly bite Infectious disease follow-up visit 09/28. No fevers chills or sweats or systemic symptoms. No toe pain. Still with opening on the plantar surface of her left foot toe and had silver nitrate applied by Podiatry but scab has fallen off and patient states that there is older lookingPus-like material that comes out occasionally. She is currently not dressing it. She denies any significant drainage. No tenderness noted. Patient did have trauma to her left foot as exemplified by a bruise on the dorsum of her foot. No other toe abnormalities reported. Currently not on antibiotics. ID clinic appt 11/02/23, no f/c/s. No drainage. NO pain when walking. No abx or topicals at this time. Patient overall feels that her toe is improved and there has been no issues unless she presses onit where there is mild tenderness although this is improving. There is no open wound. Patient states that since the substance came out of her toe which she believes is cartilage, her toe is healing well. Patient denies any other new complaints. She is planning for future knee surgery for degenerative disease and the timing of this was discussed. ID clinic 05/10, 1 month with irritation noted. No f/c/s. Noted pus yesterday and she removed from left lateral toe. Some pain and swelling in foot and calf reported. On no abx. Has podiatry appt nextweek. ROS Review of Systems A complete review of systems are negative except those consistent with HPI No fevers, chills or sweats No cough, chest pain No dysphagia, odynophagia No abdominal pain, nausea, vomiting, diarrhea No dysuria, frequency, hematuria No headache, dizziness, focal neurologic complaints No ear pain No sinus pain No rash No weight loss No joint or muscular pain Recent travel history? No HISTORY/ALLERGIES/MEDS Allergies Allergen Reactions Nsaids Has CKD-3a, and Anemia Past Medical History: Diagnosis Date A-fib Anemia low Fe Arrhythmia Arthritis ASCUS of cervix with negative high risk HPV Asthma not asthma B12 deficiency Carotid stenosis, bilateral-Right 30%, and left 60% Central retinal artery occlusion of left eye CKD (chronic kidney disease) stage 3, GFR 30-59 ml/min-3a patient denies CLL (chronic lymphocytic leukemia) 2011 [id number] on 09-30-2020 Depression Diffuse non-Hodgkin's lymphoma chemotherapy Folate deficiency GERD (gastroesophageal reflux disease) Gout pt denies Hiatal hernia pt denies Hyperglycemia Hyperlipidemia LDL goal <70 Hypertension Hyponatremia Liver disease fatty liver Non-Hodgkin lymphoma 2011 in remission PERCY (obstructive sleep apnea) PVC's (premature ventricular contractions) 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 (blindness) Past Surgical History: Procedure Laterality Date I&D BURSA FOOT Left 07/08/2023 Laterality: Left; Surgeon: Dawn Uriarte DPM; Location: [facility] OR INJECTION NERVE OTHER PERIPHERAL Left 12/16/2022 Laterality: Left; Surgeon: Isreal Sigala MD; Location: [facility] OR GUIDANCE FLUOROSCOPIC NEEDLE OR CATHETER PLACEMENT FOR SPINE INJECTION ADD-ON PX Left 12/16/2022 Laterality: Left; Surgeon: Isreal Sigala MD; Location: [facility] OR SUSPENSION URETHRA/URETHROVESICAL FEMALE OPEN W/ SYNTHETIC MATERIAL (SLING) Midline 08/31/2022 Laterality: Midline; Surgeon: Dariusz Rangel MD; Location: [facility] OR CYSTOURETHROSCOPY W/ DILATION BLADDER Midline 08/31/2022 Laterality: Midline; Surgeon: Dariusz Rangel MD; Location: [facility] OR COLPORRHAPHY ANTEROPOSTERIOR REPAIR CYSTOCELE & RECTOCELE Midline 08/31/2022 Laterality: Midline; Surgeon: Dariusz Rangel MD; Location: [facility] OR ARTHRODESIS SACROILIAC JOINT MINIMALLY INVASIVE W/ TRANSFIXING DEVICE Left 06/17/2022 Laterality: Left; Surgeon: Isreal Sigala MD; Location: [facility] GUIDANCE FLUOROSCOPIC NEEDLE OR CATHETER PLACEMENT FOR SPINE INJECTION ADD-ON PX Left 06/17/2022 Laterality: Left; Surgeon: Isreal Sigala MD; Location: [facility] OR EGD W/ DILATION BALLOON N/A 12/01/2021 Laterality: N/A; Surgeon: Indra Parrish DO; Location: [facility] SHOULDER ARTHROSCOPY Left 06/18/2021 REMOVAL CENTRAL VENOUS ACCESS DEVICE TUNNELED W/ PORT PUMP Left 09/13/2019 Laterality: Left; Surgeon: Eduardo Muñoz MD; Location: [facility] INTERVENTIONAL RADIOLOGY (VIR) EGD W/ DILATION BALLOON N/A 06/30/2018 Laterality: N/A; Surgeon: Indra Parrish DO; Location: [facility] EGD DIAGNOSTIC N/A 04/07/2018 Laterality: N/A; Surgeon: Wilner Leigh MD; Location: [facility] COLONOSCOPY DIAGNOSTIC N/A 04/07/2018 Laterality: N/A; Surgeon: Wilner Leigh MD; Location: [facility] KNEE REPLACEMENT Right 05/2015 done at [facility] ARTHROPLASTY KNEE TOTAL Right 04/2015 INSERTION PICC W/ PORT PUMP 2014 power port COLONOSCOPY DIAGNOSTIC 2006 SALPINGO-OOPHORECTOMY OPEN N/A 1983 APPENDECTOMY OPEN 1983 TONSILLECTOMY ADENOIDECTOMY 1968 EGD DIAGNOSTIC 10 months ago Social History Socioeconomic History Marital status: Spouse name: Not on file Number of children: Not on file Years of education: Not on file Highest education level: Not on file Occupational History Employer: RETIRED Tobacco Use Smoking status: Former Packs/day: 0.75 Years: 35.00 Additional pack years: 0.00 Total pack years: 26.25 Types: Cigarettes Quit date: 04/23/2013 Years since quittin.2 Smokeless tobacco: Never Vaping Use Vaping Use: Never used Substance and Sexual Activity Alcohol use: Yes Alcohol/week: 2.0 standard drinks of alcohol Types: 2 Cans of beer per week Drug use: Never Sexual activity: Not Currently control/protection: Menopause Other Topics Concern Service Not Asked Blood Transfusions Not Asked Caffeine Concern Not Asked Occupational Exposure Not Asked Hobby Hazards Not Asked Sleep Concern Not Asked Stress Concern Not Asked Weight Concern Not Asked Special Diet Not Asked Back Care Not Asked Exercise Not Asked Bike Helmet Not Asked Seat Belt Not Asked Domestic Violence No Social History Narrative Not on file Social Determinants of Health Financial Resource Strain: Not on file Food Insecurity: Not on file Transportation Needs: Not on file Physical Activity: Not on file Stress: Not on file Social Connections: Not on file Intimate Partner Violence: Not on file Housing Stability: Not on file Family History Problem Relation Age of Onset Hypertension Mother Lipid Disorder Mother Depression Mother Clotting Disorder Mother hx of DVT Dementia Father Arrhythmia Father A-Fib Anesth Problems Sister post-op n/v Breast Cancer Maternal Aunt Cancer- Other Maternal Uncle melanoma Ovarian Cancer Paternal Aunt Cancer Paternal Aunt brain Lung Cancer Maternal Grandfather Hypertension Son Lipid Disorder Daughter No known problems Daughter Autism Grandson Current Outpatient Medications: Albuterol (Ventolin HFA) 108 (90 Base) MCG/ACT Aero Soln inhaler, Inhale 2 puffs every 6 hours as needed for Wheezing., Disp: 18 g, Rfl: 0 Allopurinol 100 MG tablet, Take 1 tablet by mouth daily., Disp: 90 tablet, Rfl: 3 Amoxicillin-clavulanate 875-125 MG tablet, Take 1 tablet by mouth every 12 hours for 10 days., Disp: 20 tablet, Rfl: 0 apixaban 2.5 MG tablet, 2.5 mg 2 tabs, BID- Lot # [id number] 08.15, Disp: 56 tablet, Rfl: 0 buPROPion (Wellbutrin XL) 300 MG tablet XL, Take 1 tablet by mouth every morning before breakfast.,Disp: 90 tablet, Rfl: 0 carveDILOL (Coreg) 12.5 MG tablet, Take 1 tablet by mouth 2 times daily with meals. Given by Dr. Calderon, Disp: , Rfl: Cetirizine 10 MG tablet, Take 1 tablet by mouth daily as needed for Allergies. OTC, Disp: , Rfl: Clindamycin Phos-Benzoyl Perox 1.2-3.75 % Gel, Apply 1 Application topically daily. Given by Dermatology Dr. Dejesus, Disp: , Rfl: Clopidogrel 75 MG tablet, Take 1 tablet by mouth daily., Disp: 90 tablet, Rfl: 3 cyanocobalamin 1000 MCG tablet, Take 1 tablet by mouth daily. Chew 1 tab q daily, Disp: 90 tablet, Rfl: 0 Evolocumab (Repatha SureClick) 140 MG/ML Solution Auto-injector injection, Inject 1 mL under the skin every 14 days. (Patient taking differently: Inject 1 mL under the skin every 14 days. Last dose 06/17/2023), Disp: 2 mL, Rfl: 11 fenofibrate 160 MG tablet, Take 1 tablet by mouth daily., Disp: 90 tablet, Rfl: 3 Folic acid 1 MG tablet, Take 1 tablet by mouth daily., Disp: 90 tablet, Rfl: 0 Lisinopril 5 MG tablet, Take 1 tablet by mouth daily. Cancel previous refills, Disp: 90 tablet, Rfl: 0 magnesium oxide 400 (240 Mg) MG, Take 1 tablet by mouth daily. OTC, Disp: , Rfl: Mupirocin 2 % ointment, Apply topical TID for 7 days, Disp: 30 g, Rfl: 0 Pantoprazole (Protonix) [address] tablet DR, Take 1 tablet by mouth 2 times daily (take before meals)., Disp: 180 tablet, Rfl: 0 traZODone 100 MG tablet, Take 1 tablet by mouth at bedtime., Disp: 90 tablet, Rfl: 0 triamterene-hydrochlorothiazide (Dyazide) 37.5-25 MG per capsule, Take 1 capsule by mouth daily. Cancel previous refills, Disp: 90 capsule, Rfl: 3 hydroCODone-acetaminophen 5-325 MG tablet, Take 1 tablet by mouth every 4 hours as needed for Moderate Pain for up to 3 days., Disp: 18 tablet, Rfl: 0 EXAM BP 128/72 (BP Location: Right arm, BP Position: Sitting) Pulse 82 Temp 96.8 F (36 C) (Temporal) Resp 18 Ht 1.651 m (5' 5) Wt 94.8 kg (209 lb) SpO2 97% BMI 34.78 kg/m Smoking Status Former Physical Exam Vitals and nursing note reviewed. Constitutional: General: She is not in acute distress. Appearance: Normal appearance. HENT: Head: Normocephalic and atraumatic. Mouth/Throat: Pharynx: Oropharynx is clear. No oropharyngeal exudate. Eyes: Extraocular Movements: Extraocular movements intact. Conjunctiva/sclera: Conjunctivae normal. Pupils: Pupils are equal, round, and reactive to light. Cardiovascular: Rate and Rhythm: Normal rate and regular rhythm. Pulses: Normal pulses. Heart sounds: Normal heart sounds. No murmur heard. Pulmonary: Effort: Pulmonary effort is normal. No respiratory distress. Breath sounds: Normal breath sounds. No rhonchi or rales. Abdominal: General: Bowel sounds are normal. There is no distension. Palpations: Abdomen is soft. Tenderness: There is no abdominal tenderness. There is no guarding. Genitourinary: Comments: No CVA or suprapubic tenderness Musculoskeletal: General: No swelling or tenderness. Normal range of motion. Cervical back: Normal range of motion and neck supple. No rigidity. Comments: Left 4th toe with lateral proximal wound with small hole, very small drainage. Some swelling and noted pain on palpation Skin: General: Skin is warm and dry. Findings: No rash. Neurological: General: No focal deficit present. Mental Status: She is alert. Psychiatric: Mood and Affect: Mood normal. Behavior: Behavior normal. Thought Content: Thought content normal. LABS CBC Lab Results Component Value Date WBC 6.6 06/29/2023 HGB 13.2 06/29/2023 HCT 39.1 06/29/2023 PLATELET 218 06/29/2023 MCV 97.4 06/29/2023 EDIF Lab Results Component Value Date RBCDISTRIBU 14.0 06/29/2023 GRNLOCYT 43.5 09/29/2022 LYMPHOCYT 45.1 09/29/2022 MONOCYTELEC 9.2 09/29/2022 EOSINOPHILS 1.2 04/21/2023 EOSINOPHILS 0.1 04/21/2023 BASOPHILS 0.6 04/21/2023 BASOPHILS 0.0 04/21/2023 GRNLOCTYABS 3.0 11/03/2016 LYMPHOCYTABS 1.8 04/21/2023 MONOSABSOLU 0.5 11/03/2016 EOSINOPHLABS 0.09 09/29/2022 BASOPHILSABS 0.1 11/03/2016 PLATELET 218 06/29/2023 MPV 8.5 06/29/2023 EDIF Lab Results Component Value Date RBCDISTRIBU 14.0 06/29/2023 GRNLOCYT 43.5 09/29/2022 LYMPHOCYT 45.1 09/29/2022 MONOCYTELEC 9.2 09/29/2022 EOSINOPHILS 1.2 04/21/2023 EOSINOPHILS 0.1 04/21/2023 BASOPHILS 0.6 04/21/2023 BASOPHILS 0.0 04/21/2023 GRNLOCTYABS 3.0 11/03/2016 LYMPHOCYTABS 1.8 04/21/2023 MONOSABSOLU 0.5 11/03/2016 EOSINOPHLABS 0.09 09/29/2022 BASOPHILSABS 0.1 11/03/2016 PLATELET 218 06/29/2023 MPV 8.5 06/29/2023 ESR Lab Results Component Value Date RBCDISTRIBU 14.0 06/29/2023 GRNLOCYT 43.5 09/29/2022 LYMPHOCYT 45.1 09/29/2022 MONOCYTELEC 9.2 09/29/2022 EOSINOPHILS 1.2 04/21/2023 EOSINOPHILS 0.1 04/21/2023 BASOPHILS 0.6 04/21/2023 BASOPHILS 0.0 04/21/2023 GRNLOCTYABS 3.0 11/03/2016 LYMPHOCYTABS 1.8 04/21/2023 MONOSABSOLU 0.5 11/03/2016 EOSINOPHLABS 0.09 09/29/2022 BASOPHILSABS 0.1 11/03/2016 PLATELET 218 06/29/2023 MPV 8.5 06/29/2023 Lab Results Component Value Date SODIUM 133 (L) 06/29/2023 POTASSIUM 4.3 06/29/2023 CHLORIDE 100 06/29/2023 CO2 25 06/29/2023 BUN 16 06/29/2023 CREATSERUM 0.82 06/29/2023 GLUCOSE 123 (H) 06/29/2023 No results found for: CRP Lab Results Component Value Date RESULTCULT FINEGOLDIA MAGNA 07/08/2023 RESULTCULT STAPHYLOCOCCUS EPIDERMIDIS 07/08/2023 . Lab Results Component Value Date GLUCOSE 123 (H) 06/29/2023 . Lab Results Component Value Date CALCIUM 9.5 06/29/2023 Lab Results Component Value Date ALBUMIN 4.1 06/29/2023 SIUM 06/29/2023 CHLORIDE 06/29/2023 CO2 09 Lab Results Component Value Date BILITOTAL 0.9 06/29/2023 Lab Results Component Value Date BUN 16 06/29/2023 ALKPHOS 51 06/29/2023 BILITOTAL 0.9 06/29/2023 BILIDIRECT 0.1 10/22/2015 No orders to display IMAGING MRI FOOT LEFT WITHOUT CONTRAST Result Date: 06/29/2023 EXAM: MRI FOOT LEFT WITHOUT CONTRAST COMPARISON: Left foot x-rays from 06/14/2023 and left foot MRI from 05/10/2023. HISTORY: Infection in the fourth toe. Evaluate for osteomyelitis. TECHNIQUE: Multiplanar and multisequence imaging of the left foot was performed without contrast. FINDINGS: Motion artifact degrades evaluation on this study. There is mild soft tissue swelling involving the fourth toewith mild subcutaneous edema. Correlation for clinical findings of cellulitis would be helpful. There is no well-defined abscess. There is no MRI evidence of osteomyelitis. There is no low T1 signal or bony destruction in the phalanges of the fourth toe. No fracture or dislocation is evident. Thereis no metatarsal stress fracture. The tarsometatarsal alignment is anatomic. There is mild joint space narrowing and spurring involving the first metatarsophalangeal joint. Flexor and extensor tendons and the midfoot and forefoot appear intact with no focal tendon tear. There is no focal tenosynovitis. No muscle edema is identified. IMPRESSION: 1. There is mild subcutaneous edema and soft tissue swelling of the fourth toe suspicious for cellulitis. 2. No MRI evidence of osteomyelitis. 3. No focal abscess. 4. No acute or healing fracture in the foot. MRI SPINE LUMBAR WITHOUT CONTRAST Result Date: 06/20/2023 TITLE: MRI SPINE LUMBAR WITHOUT CONTRAST COMPARISON: 2021 lumbar spine MRI CLINICAL HISTORY: Low back pain radiating to the sacroiliac joints TECHNIQUE: Sagittal T1, sagittal T2 FSE, sagittal STIR, and axial T2 FSE. FINDINGS: Alignment is normal. There is no listhesis nor vertebral body height loss. The conus medullaris terminates at L1-2 and appears normal. The visualized adjacent soft suggest asmall right renal cyst. Prominent dorsal epidural fat L1-L5.. New metallic hardware traversing the left sacroiliac joint. T12-L1: Normal disc space. No stenosis L1-L2:Mild disc bulge. No significant stenosis. L2-3: Diffuse disc bulge. Left foraminal extension. Bilateral facet hypertrophy. Mild central canal and moderate left-sided foraminal narrowing L3-4: Mild disc bulge. Mild tear in left lateral annulus. Bilateral facet hypertrophy. Mild to moderate central canal and left-sided foraminal narrowing L4-5: Disc space narrowing lateral disc and osteophyte formation. Central disc protrusion. Facet hypertrophy and prominent dorsal epidural fat. This results in moderate to severe central canal and moderate foraminal narrowing L5-S1: Mild disc bulge. Bilateral facet hypertrophy. There is no significant central canal and [id number] left-sided foraminal narrowing IMPRESSION: MODERATE MULTILEVEL DEGENERATIVE CHANGES OF THE LUMBAR SPINE PROMINENT DORSAL EPIDURAL FAT L1-L5 L2-3: DIFFUSE DISC BULGE WITH LEFT FORAMINAL DISC PROTRUSION SMALL ANNULAR TEAR L3-4 MODERATE TO SEVERE MULTIFACTORIAL CENTRAL STENOSIS L4-5 FACET HYPERTROPHY LOWER 2 LUMBAR LEVELS XR FOOT LEFT 3 VIEWS Result Date: 06/14/2023 EXAM: XR FOOT LEFT 3 VIEWS HISTORY: left 4th toe infection COMPARISON: 05/02/2023. FINDINGS: 3 weightbearing views were submitted. Again the fourth toe appears swollen. Fracture, opaque foreign body or bony erosion not identified. Spurs present plantar and posterior calcaneus. IMPRESSION: 1. Again there is soft tissue swelling fourth toe, osseous abnormality not identified. 2. Calcaneal spurs. XR SPINE LUMBAR W BENDING Result Date: 06/07/2023 EXAM: XR SPINE LUMBAR W BENDING HISTORY: Spondylosis of lumbar region without myelopathy or radiculopathy COMPARISON: None. TECHNIQUE: 5 views with flexion and extension Findings/impression: Satisfactory alignment. Maintained vertebral body heights. Multilevel disc disease and facet arthropathy of L3-S1. Intact hardware. No acute fracture or subluxation. Left-sided sacroiliac fixation. Intact hardware. Diagnosis/Plan: There are no diagnoses linked to this encounter. Complex left 4th toe infection, hx -MRI 05/11 and 06/29/23 does not show clear osteomyelitis but does have soft tissue swelling -culture from 4th toe 05/17 with Staphylococcus epidermidis for thigh overgrowth only likely a contaminant; 05/05 negative; 05/02 with finegoldia -history of MRSA nares negative -Keflex x 2, cefixime, levaquin and doxycycline course without clearance per history -concern for a deep-seated infection that is not being resolved with short courses of oral therapy -s/p operative procedure 07/08/23 with S epi and finegoldia. -there is no inciting trauma or events preceding this infection that the patient recalls including no bite injuries, soil, pedicures or other inciting events to suggest unusual organisms but this remains in the differential -Operative 07/08/23 finding no pus and MRI negative for OM; did debride down to tendon; specimens for bacterial aerobic and anaerobic showed S. Epi and Finegoldia on 07/08/23 -suspect the staph epi is not a true cause of a deep-seated infection given lack of hardware -S/p Augmentin 875 mg twice daily for the finegoldia, 07/13-07/24 -plan at least a three-week treatment course but possibly longer -fungal and afb cultures 07/29, NGTD -Recurrent I&D for abscess on 07/21, cx negative -MRI: Worsening subcutaneous edema/cellulitis over the left fourth digit with new focal collection/abscess laterally. No osteomyelitis. -despite Augmentin and Zyvox as well as prior antibiotics including doxycycline, Levaquin and cephalosporins she continues to have a purulent abscess of her toe. -uric acid is normal and no history of gout per her report; consider noninfectious causes but none clear - she does have history of cancer but this is remote would be an odd presentation -TB and Fungitell of blood negative -Repeat cultures purulence 07/29 for AFB and fungal cultures, NGTD -patient had I&D on 08/11 with culture negative by Podiatry but no PCR; path with hyperkeratosis with possible trauma -s/p PICC and ertapenem since 07/29-08/29/23 and line removed -Watch, if ID again then will need further studies including repeat imaging and pcr and deep pathology -all on follow-up exam 11/02/2023, toe appears to be healing well and there is no further wound. There is minimal tenderness but no erythema redness or signs of infection. Skin is slightly discoloredon toe. Overall this in total is improving without clear infection. -Left 4th toe quiet for over a year and now reports 1 month hx of pain, swelling and reopening of wound same wound with drainage; no systemic ID symptoms on 05/10 -Wound cx 05/10 ordered -Xray left foot 05/10 ordered -Await findings and then plan abx course; patient has a complex course of recurrent wounds has had previous debridement and extensive antibiotic courses. She denies any recent trauma or inciting event wound has reopened at old location. Patient may need MRI but we will await culture and x-ray findings. She does have podiatry appointment pending for this next week -any evidence of redness, spreading infection, fever she should immediately seek care and this was discussed. Plans for term follow up in infectious disease clinic Hx of yeast ID -S/p tx, resolved Hx of DM +-patient denies a history of diabetes but this is in her record and states that she is not currently on any management. Previous BMP shows mildly elevated glucose. -a1c 5.5, 5.8 - normal range Healthcare maintenance -history of prior flu shots, s/p flu shot this fall and s/p 08/25/23 given -history of pneumococcal conjugate and polysaccharide vaccines -history of tetanus vaccine 2018 -recommend keeping up-to-date on all recommended vaccines Left knee degenerative disease -s/p TKA Return to clinic 1 week, including with any concerns for new infection and this was discussed in detail. Over 1 year since last visit 32 min of care Please note Portions of this note utilized [employer] and [employer] dictation software, please excuse any typographical or grammatical errors. [facility] Emergency department Note* Liang Simmons, DO - 04/05/2025 7:08 AM EDT Emergency Medicine Transition of Care Note. I received Elena Galeano in signout from Dr. Harper. Please see the previous ED provider note for all HPI, PE and MDM up to the time of signout at 7 AM. This is in addition to the primary record. In brief Elena Galeano is an 65 y.o. female presenting for Chief Complaint Patient presents with Suicidal Arrives via [facility] [place], pt reportedly attempted suicide yesterday but was unable to workthe gun.. Today the pt's committed suicide 3 hours ago via the same gun she attempted to use. Pt states this is a tough time of the year for them because her daughter 26 years ago today.Pt states if the deputy had left her at home she would use another gun or overdose on pills to end her life. Placed in psych safe room, wanded by security, changed to paper scrubs. 1:1 sitter on arrival At the time of signout we were awaiting: Bed at [facility] ED Course as of 04/05/25 0720 TueApr 05, 2025 0709 65-year-old female with depression and alcohol use disorder presents after suicide attempt. Her committed suicide by self-inflicted gunshot wound a few hours prior to her suicide attempt. She tried to shoot herself with a gun but could not operate the gun. She stated that if there was no intervention she would have gotten another gun to commit suicide or overdose on pills. She is a chronic daily drinker. She takes Valium chronically as well. This morning she is experiencing nauseous denies any alcohol withdrawal symptoms. Placed in [facility] with p.o. Ativan protocol which will address her alcohol withdrawal symptoms and her benzodiazepine withdrawal. She has been pink slipped and accepted for transfer to [facility] in [place]. Will continue to closely monitor patient while she boards in the emergency department. [BT] 0718 ECG 12 lead EKG interpreted by me performed at 7:13 AM on 04/05/2025 shows sinus rhythm with rate of 77. PVCs. Normal ST-T segments. No acute injury pattern. [BT] 0719 She was complaining of chest pain. EKG without acute injury pattern. PVCs noted. Doubt ACS. Nonetheless, will check serial troponins. [BT] ED Course User Index [BT] Liang Simmons DO Diagnoses as of 04/05/25 0720 Depression, unspecified depression type Alcohol use disorder Chronic prescription benzodiazepine use Benzodiazepine withdrawal without complication (Multi) Nonspecific chest pain Medical Decision Making Final diagnoses: [F32.A] Depression, unspecified depression type [F10.90] Alcohol use disorder [Z79.899] Chronic prescription benzodiazepine use [F13.930] Benzodiazepine withdrawal without complication (Multi) [R07.9] Nonspecific chest pain Procedure Procedures DO Liang Bowie DO 04/05/25 0711 Liang Simmons DO 04/05/25 0719 Liang Simmons DO 04/05/25 0720 [facility] [place] Work Phone: 1(449) 902-708506-13-2025 Emergency department Note* Liang Simmons DO - 04/05/2025 7:08 AM EDT Emergency Medicine Transition of Care Note. I received Elena Galeano in signout from Dr. Harper. Please see the previous ED provider note for all HPI, PE and MDM up to the time of signout at 7 AM. This is in addition to the primary record. In brief Elena Galeano is an 65 y.o. female presenting for Chief Complaint Patient presents with Suicidal Arrives via [facility] [place], pt reportedly attempted suicide yesterday but was unable to workthe gun.. Today the pt's committed suicide 3 hours ago via the same gun she attempted to use. Pt states this is a tough time of the year for them because her daughter 26 years ago today.Pt states if the deputy had left her at home she would use another gun or overdose on pills to end her life. Placed in psych safe room, wanded by security, changed to paper scrubs. 1:1 sitter on arrival At the time of signout we were awaiting: Bed at [facility] ED Course as of 04/05/25 0720 TueApr 05, 2025 0709 65-year-old female with depression and alcohol use disorder presents after suicide attempt. Her committed suicide by self-inflicted gunshot wound a few hours prior to her suicide attempt. She tried to shoot herself with a gun but could not operate the gun. She stated that if there was no intervention she would have gotten another gun to commit suicide or overdose on pills. She is a chronic daily drinker. She takes Valium chronically as well. This morning she is experiencing nauseous denies any alcohol withdrawal symptoms. Placed in [facility] with p.o. Ativan protocol which will address her alcohol withdrawal symptoms and her benzodiazepine withdrawal. She has been pink slipped and accepted for transfer to [facility] in [place]. Will continue to closely monitor patient while she boards in the emergency department. [BT] 0718 ECG 12 lead EKG interpreted by me performed at 7:13 AM on 04/05/2025 shows sinus rhythm with rate of 77. PVCs. Normal ST-T segments. No acute injury pattern. [BT] 0719 She was complaining of chest pain. EKG without acute injury pattern. PVCs noted. Doubt ACS. Nonetheless, will check serial troponins. [BT] ED Course User Index [BT] Liang Simmons, Diagnoses as of 04/05/25 0720 Depression, unspecified depression type Alcohol use disorder Chronic prescription benzodiazepine use Benzodiazepine withdrawal without complication (Multi) Nonspecific chest pain Medical Decision Making Final diagnoses: [F32.A] Depression, unspecified depression type [F10.90] Alcohol use disorder [Z79.899] Chronic prescription benzodiazepine use [F13.930] Benzodiazepine withdrawal without complication (Multi) [R07.9] Nonspecific chest pain Procedure Procedures Liang Simmons, DO Liang Simmons, 04/05/25 0711 Liang Simmons, 04/05/25 0719 Liang Simmons, 04/05/25 0720 * Geronimo Harper, DO - 04/05/2025 1:35 AM EDT HPI Chief Complaint Patient presents with Suicidal Arrives via [facility] [place], pt reportedly attempted suicide yesterday but was unable to workthe gun.. Today the pt's committed suicide 3 hours ago via the same gun she attempted to use. Pt states this is a tough time of the year for them because her daughter 26 years ago today.Pt states if the deputy had left her at home she would use another gun or overdose on pills to end her life. Placed in psych safe room, wanded by security, changed to paper scrubs. 1:1 sitter on arrival 65-year-old female presents for psychiatric evaluation. Patient has strong smell of EtOH and initial alcohol level indicates she is legally intoxicated. Sadly her committed suicide 3 hours prior to her arrival. Patient did attempt to use a firearm yesterday but could not pull the trigger back. Patient states this is a difficult time of the year as her daughter committed suicide 26 years ago. Patient has been nonviolent. I did speak to the patient at length about the importance of her seeking help and being treated for her presenting complaint. Patient does admit to daily alcohol consumption of rum or wine. Screener agrees with my opinion of patient having inpatient treatment. The patient will be admitted to [facility]. History provided by: Patient and police Patient History Medical History[1] Surgical History[2] Family History[3] Social History[4] Physical Exam ED Triage Vitals Temperature Heart Rate Respirations BP 04/04/258 04/04/258 04/04/25215704/04/252157 36.4 C (97.6 F) 83 20 155/81 Pulse Ox Temp Source Heart Rate Source Patient Position 04/04/25215704/05/2512404/05/25124 -- (!) 92 % Temporal Monitor BP Location FiO2 (%) -- -- Physical Exam Vitals and nursing note reviewed. Constitutional: Appearance: Normal appearance. HENT: Head: Normocephalic and atraumatic. Right Ear: Tympanic membrane normal. Left Ear: Tympanic membrane normal. Nose: Nose normal. Mouth/Throat: Mouth: Mucous membranes are moist. Eyes: Extraocular Movements: Extraocular movements intact. Pupils: Pupils are equal, round, and reactive to light. Cardiovascular: Rate and Rhythm: Normal rate. Pulmonary: Effort: Pulmonary effort is normal. Breath sounds: Normal breath sounds. Abdominal: General: Abdomen is flat. Palpations: Abdomen is soft. Musculoskeletal: General: Normal range of motion. Cervical back: Normal range of motion. Skin: General: Skin is warm and dry. Neurological: General: No focal deficit present. Mental Status: She is alert and oriented to person, place, and time. Labs Reviewed CBC WITH AUTO DIFFERENTIAL - Abnormal Result Value WBC 6.9 nRBC 0.0 RBC 4.61 Hemoglobin 14.2 Hematocrit 42.2 MCV 92 MCH 30.8 MCHC 33.6 RDW 17.4 (*) Platelets 297 Neutrophils % 50.8 Immature Granulocytes %, Automated 0.1 Lymphocytes % 42.0 Monocytes % 5.2 Eosinophils % 0.7 Basophils % 1.2 Neutrophils Absolute 3.48 Immature Granulocytes Absolute, Automated 0.01 Lymphocytes Absolute 2.88 Monocytes Absolute 0.36 Eosinophils Absolute 0.05 Basophils Absolute 0.08 COMPREHENSIVE METABOLIC PANEL - Abnormal Glucose 140 (*) Sodium 136 Potassium 3.6 Chloride 97 (*) Bicarbonate 25 Anion Gap 18 Urea Nitrogen 11 Creatinine 0.65 eGFR >90 Calcium 9.4 Albumin 4.5 Alkaline Phosphatase 72 Total Protein 7.3 AST 111 (*) Bilirubin, Total 0.4 ALT 77 (*) ALCOHOL - Abnormal Alcohol 149 (*) DRUG SCREEN,URINE - Abnormal Amphetamine Screen, Urine Presumptive Negative Barbiturate Screen, Urine Presumptive Negative Benzodiazepines Screen, Urine Presumptive Positive (*) Cannabinoid Screen, Urine Presumptive Positive (*) Cocaine Metabolite Screen, Urine Presumptive Negative Fentanyl Screen, Urine Presumptive Negative Opiate Screen, Urine Presumptive Negative Oxycodone Screen, Urine Presumptive Negative PCP Screen, Urine Presumptive Negative Methadone Screen, Urine Presumptive Negative Narrative: Drug screen results are presumptive and should not be used to assess compliance with prescribed medication. Contact the performing [facility] laboratory to add-on definitive confirmatory testing if clinically indicated. Toxicology screening results are reported qualitatively. The concentration must be greater than or equal to the cutoff to be reported as positive. The concentration at which the screening test can detect an individual drug or metabolite varies. The absence of expected drug(s) and/or drug metabolite(s) may indicate non-compliance, inappropriate timing of specimen collection relative to drug administration, poor drug absorption, diluted/adulterated urine, or limitations of testing. For medical purposes only; not valid for forensic use. Interpretive questions should be directed to the laboratory medical directors. ALCOHOL - Abnormal Alcohol 71 (*) ACETAMINOPHEN - Normal Acetaminophen <10.0 SALICYLATE - Normal Salicylate <3 ED Course & MDM Diagnoses as of 04/05/25 0331 Depression, unspecified depression type No data recorded Medical Decision Making Transfer to [facility] Procedure Procedures [1] No past medical history on file. [2] No past surgical history on file. [3] No family history on file. [4] Social History Tobacco Use Smoking status: Not on file Smokeless tobacco: Not on file Substance Use Topics Alcohol use: Not on file Drug use: Not on file Geronimo Harper DO 04/05/25 0332 documented in this [facility] Work Phone: [phone]) 672-771706-13-2025 Physician Emergency department Note* Geronimo Harper DO - 04/05/2025 1:35 AM EDT HPI Chief Complaint [facility] reportedly attempted [facility] yesterday but was unable to workthe gun.. Today the pt's committed suicide 3 hours ago via the same gun she attempted to use. Pt states this is a tough time of the year for them because her daughter 26 years ago today.Pt states if the deputy had left her at home she would use another gun or overdose on pills to end her life. Placed in psych safe room, wanded by security, changed to paper scrubs. 1:1 sitter on arrival 65-year-old female presents for psychiatric evaluation. Patient has strong smell of EtOH and initial alcohol level indicates she is legally intoxicated. Sadly her committed suicide 3 hours prior to her arrival. Patient did attempt to use a firearm yesterday but could not pull the trigger back. Patient states this is a difficult time of the year as her daughter committed suicide 26 years ago. Patient has been nonviolent. I did speak to the patient at length about the importance of her seeking help and being treated for her presenting complaint. Patient does admit to daily alcohol consumption of rum or wine. Screener agrees with my opinion of patient having inpatient treatment. The patient will be admitted to [facility]. History provided by: Patient and police Patient History Medical History[1] Surgical History[2] Family History[3] Social History[4] Physical Exam ED Triage Vitals Temperature Heart Rate Respirations BP 04/04/25 2158 04/04/25 2158 04/04/[id number]/04/[id number] 36.4 C (97.6 F) 83 20 155/81 Pulse Ox Temp Source Heart Rate Source Patient Position 04/04/25 2158 04/05/25 0125 04/05/25 0125 -- (!) 92 % Temporal Monitor BP Location FiO2 (%) -- -- Physical Exam Vitals and nursing note reviewed. Constitutional: Appearance: Normal appearance. HENT: Head: Normocephalic and atraumatic. Right Ear: Tympanic membrane normal. Left Ear: Tympanic membrane normal. Nose: Nose normal. Mouth/Throat: Mouth: Mucous membranes are moist. Eyes: Extraocular Movements: Extraocular movements intact. Pupils: Pupils are equal, round, and reactive to light. Cardiovascular: Rate and Rhythm: Normal rate. Pulmonary: Effort: Pulmonary effort is normal. Breath sounds: Normal breath sounds. Abdominal: General: Abdomen is flat. Palpations: Abdomen is soft. Musculoskeletal: General: Normal range of motion. Cervical back: Normal range of motion. Skin: General: Skin is warm and dry. Neurological: General: No focal deficit present. Mental Status: She is alert and oriented to person, place, and time. Labs Reviewed CBC WITH AUTO DIFFERENTIAL - Abnormal Result Value WBC 6.9 nRBC 0.0 RBC 4.61 Hemoglobin 14.2 Hematocrit 42.2 MCV 92 MCH 30.8 MCHC 33.6 RDW 17.4 (*) Platelets 297 Neutrophils % 50.8 Immature Granulocytes %, Automated 0.1 Lymphocytes % 42.0 Monocytes % 5.2 Eosinophils % 0.7 Basophils % 1.2 Neutrophils Absolute 3.48 Immature Granulocytes Absolute, Automated 0.01 Lymphocytes Absolute 2.88 Monocytes Absolute 0.36 Eosinophils Absolute 0.05 Basophils Absolute 0.08 COMPREHENSIVE METABOLIC PANEL - Abnormal Glucose 140 (*) Sodium 136 Potassium 3.6 Chloride 97 (*) Bicarbonate 25 Anion Gap 18 Urea Nitrogen 11 Creatinine 0.65 eGFR >90 Calcium 9.4 Albumin 4.5 Alkaline Phosphatase 72 Total Protein 7.3 AST 111 (*) Bilirubin, Total 0.4 ALT 77 (*) ALCOHOL - Abnormal Alcohol 149 (*) DRUG SCREEN,URINE - Abnormal Amphetamine Screen, Urine Presumptive Negative Barbiturate Screen, Urine Presumptive Negative Benzodiazepines Screen, Urine Presumptive Positive (*) Cannabinoid Screen, Urine Presumptive Positive (*) Cocaine Metabolite Screen, Urine Presumptive Negative Fentanyl Screen, Urine Presumptive Negative Opiate Screen, Urine Presumptive Negative Oxycodone Screen, Urine Presumptive Negative PCP Screen, Urine Presumptive Negative Methadone Screen, Urine Presumptive Negative Narrative: Drug screen results are presumptive and should not be used to assess compliance with prescribed medication. Contact the performing [facility] laboratory to add-on definitive confirmatory testing if clinically indicated. Toxicology screening results are reported qualitatively. The concentration must be greater than or equal to the cutoff to be reported as positive. The concentration at which the screening test can detect an individual drug or metabolite varies. The absence of expected drug(s) and/or drug metabolite(s) may indicate non-compliance, inappropriate timing of specimen collection relative to drug administration, poor drug absorption, diluted/adulterated urine, or limitations of testing. For medical purposes only; not valid for forensic use. Interpretive questions should be directed to the laboratory medical directors. ALCOHOL - Abnormal Alcohol 71 (*) ACETAMINOPHEN - Normal Acetaminophen <10.0 SALICYLATE - Normal Salicylate <3 ED Course & MDM Diagnoses as of 04/05/25 0331 Depression, unspecified depression type No data recorded Medical Decision Making Transfer to [facility] Procedure Procedures [1] No past medical history on file. [2] No past surgical history on file. [3] No family history on file. [4] Social History Tobacco Use Smoking status: Not on file Smokeless tobacco: Not on file Substance Use Topics Alcohol use: Not on file Drug use: Not on file Geronimo Harper DO 04/05/25 0332 [facility] Work Phone: 1(917) 425-908906-03-2025 History of Present illness Narrative* Fernie Paredes DO - 03/26/2025 3:15 PM EDT Subjective History of Present Illness HISTORY OF PRESENT ILLNESS: 65 y.o. female presents with complaints of: Encounter Diagnoses Name Primary? 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-sided sciatica Pulmonary emphysema, unspecified emphysema type PERCY on CPAP-Off BiPAP due to intolerance Non-seasonal allergic rhinitis, unspecified trigger Hyperthyroidism Moderate persistent asthma without complication Hiatal hernia Chronic sinusitis, unspecified location Folate deficiency Chronic obstructive pulmonary disease, unspecified COPD type Presence of Watchman left atrial appendage closure device Paroxysmal atrial fibrillation PAC (premature atrial contraction) Internal and external hemorrhoids without complication Hypertensive heart disease without heart failure Essential hypertension Orthostasis History of CVA (cerebrovascular accident)-ischemic Central retinal artery occlusion of left eye Calcification of aorta Bradycardia Bilateral carotid artery stenosis-30% Right, 60% Left Atherosclerosis of abdominal aorta Vitamin D deficiency Hepatomegaly Gastroesophageal reflux disease without esophagitis Odynophagia Fatty liver Esophagitis, Clyo grade A Esophageal stenosis Duodenal diverticulum Chronic gastritis without bleeding, unspecified gastritis type Hypomagnesemia Hypertriglyceridemia Hyperlipidemia LDL goal <70 Unspecified amblyopia, right eye Regular astigmatism of left eye Posterior capsular opacification non visually significant, both eyes-L>R Pinguecula of both eyes PCO (posterior capsular opacification), left Other optic atrophy, left eye Hypermetropia of left eye Combined forms of age-related cataract, bilateral Blepharitis of upper eyelids of both eyes, unspecified type Allergic conjunctivitis of both eyes Blurred vision, bilateral Primary osteoarthritis of left knee Primary osteoarthritis of both knees Primary osteoarthritis of both hips-Mild Other idiopathic scoliosis, lumbar region Osteopenia determined by x-ray Osteoarthritis of left knee, unspecified osteoarthritis type HNP (herniated nucleus pulposus), lumbar-Multi level Uterine leiomyoma, unspecified location Renal cyst, right Mixed stress and urge incontinence Left renal stone Seborrheic keratosis, inflamed-Left thigh-S/P Excision CLL (chronic lymphocytic leukemia) Macrocytosis Vision loss of left eye Sacroiliitis Pseudophakia of both eyes Presbyopia Obesity (BMI 30.0-34.9) Myopia of right eye Low HDL (under 40) Irregular astigmatism of right eye Insomnia, unspecified type Hyponatremia Fatty food intolerance Former smoker-Quit 2011 Fatigue, unspecified type Episodic lightheadedness Elevated LFTs Chronic anticoagulation 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 Fib. Needs refills. C/O 1 months Hx incerased LBP with radiation to lle with intermittent numbness. No weakness. +Blurred vision. +Occasional orthostasis. +Occasional odynophagia. Weight down. Appetite is WNL. No C.P., SOB, Edema,Palpitations, Dizziness, Fatigue, GERD, Melena, Hematochezia, Dysuria, or Frequency. All others negative on ROS. Recent EGD showed small hiatal hernia. Recent DEXA and Mammogram are WNL. Recent carotid doppler showed less than 50% stenosis bilaterally. Objective Review of Systems Constitutional: Positive for unexpected weight change (Weight down). Negative for appetite change and fatigue. HENT: Positive for trouble swallowing (Intermittent orthostasis). Eyes: Positive for visual disturbance. Respiratory: Negative for shortness of breath. Cardiovascular: Negative for chest pain, palpitations and leg swelling. Gastrointestinal: Negative for abdominal pain and blood in stool. No GERD Genitourinary: Negative for dysuria and frequency. Musculoskeletal: Positive for back pain. Negative for arthralgias. Neurological: Positive for light-headedness (Mild, intermittent orthostasis) and numbness (LLE). Negative for dizziness and weakness. Psychiatric/Behavioral: Negative for dysphoric mood and sleep disturbance. The patient is not nervous/anxious. All other systems reviewed and are negative. Psych Review of Symptoms: Depressive Symptoms: No fatigue. Vitals: Blood pressure 137/67, pulse 66, temperature 98 F (36.7 C), resp. rate 14, height 1.651 m (5' 5), weight 90.6 kg (199 lb 11.2 oz), SpO2 97%, not currently . Physical Exam Vitals and nursing note reviewed. Constitutional: General: She is not in acute distress. Appearance: Normal appearance. She is obese. She is not ill-appearing. HENT: Head: Normocephalic and atraumatic. Nose: No congestion. Eyes: General: No scleral icterus. Right eye: No discharge. Left eye: No discharge. Extraocular Movements: Extraocular movements intact. Conjunctiva/sclera: Conjunctivae normal. Pupils: Pupils are equal, round, and reactive to light. Pulmonary: Effort: Pulmonary effort is normal. Breath sounds: No wheezing or rhonchi. Abdominal: General: Abdomen is flat. Bowel sounds are normal. There is no distension. Tenderness: There is no abdominal tenderness. Musculoskeletal: General: Normal range of motion. Cervical back: Normal range of motion and neck supple. No rigidity. No muscular tenderness. Right lower leg: No edema. Left lower leg: No edema. Skin: Coloration: Skin is not jaundiced. Findings: No bruising, erythema or rash. Neurological: General: No focal deficit present. Mental Status: She is alert and oriented to person, place, and time. Mental status is at baseline. Psychiatric: Mood and Affect: Mood normal. Behavior: Behavior normal. Thought Content: Thought content normal. Judgment: Judgment normal. Neurological Exam Mental Status Alert. Oriented to person, place, and time. Cranial Nerves CN III, IV, : Extraocular movements intact bilaterally. Pupils equal round and reactive to light bilaterally. Assessment and Plan Refills given all meds requested. Rx written and given for Handicadano carney for 5 years, 0rf's. COVID-19, Shingrix and Arexvy vaccines declined. Risks discussed. Refer to Dr. Christianson for eval of Lumbago with left sciatica and phone number given. Check fasting, well hydrated CBC, CMP, A1C, Lipid, TSH, UA, Vit D, Mg, PTH, Free T4, Fe, TIBC, Ferritin, B12, Folate, UA CR and UA for micro- albumin on approx 06-11-25 at [facility] lab. Alaina 09-11-[address] Naty Bhakta at [facility] and get HD Flu same day with her. Alaina 09-13-[address] Frandy Lyles. Alaian with Dr. Tomasa Brush for Watchman alaina. Alaina 10-30-[address] Davison. Alaina 11-16-[address] Calderon. Alaina 11-13-25 with Shi Son NP. Alaina 3-D mammogram in . Alaina with Dr. Philip at [facility]. Alaina Carotid doppler in and if stable will alaina q 5 years thereafter. Alaina DEXA in 2026. Alaina q [address] Keshawn Nunez in for pelvic and breast exam. No PAP needed. Alaina Colon and EGD in . Advanced primary caremanagement services(APCM)/Principal Care Management Services(PCM) reviewed and verbal consent given. Total time spent 61 minutes, excluding tests and procedures. Diet and lifestyle counseling was given, and care coordinated. OARRS report was received and assessed, and is consistent with the medications prescribed. Thank you for choosing Dr. Fernie Paredes s Office at [facility] for your hea lthcare needs. The patients' entire past medical, surgical, family, social history, allergies, medications, recent labs, recent imaging and [employer] consultant letters were reviewed and updated. ASSESSMENT & PLAN: Encounter Diagnoses Name Primary? 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-sided sciatica Pulmonary emphysema, unspecified emphysema type PERCY on CPAP-Off BiPAP due to intolerance Non-seasonal allergic rhinitis, unspecified trigger Hyperthyroidism Moderate persistent asthma without complication Hiatal hernia Chronic sinusitis, unspecified location Folate deficiency Chronic obstructive pulmonary disease, unspecified COPD type Presence of Watchman left atrial appendage closure device Paroxysmal atrial fibrillation PAC (premature atrial contraction) Internal and external hemorrhoids without complication Hypertensive heart disease without heart failure Essential hypertension Orthostasis History of CVA (cerebrovascular accident)-ischemic Central retinal artery occlusion of left eye Calcification of aorta Bradycardia Bilateral carotid artery stenosis-30% Right, 60% Left Atherosclerosis of abdominal aorta Vitamin D deficiency Hepatomegaly Gastroesophageal reflux disease without esophagitis Odynophagia Fatty liver Esophagitis, Clyo grade A Esophageal stenosis Duodenal diverticulum Chronic gastritis without bleeding, unspecified gastritis type Hypomagnesemia Hypertriglyceridemia Hyperlipidemia LDL goal <70 Unspecified amblyopia, right eye Regular astigmatism of left eye Posterior capsular opacification non visually significant, both eyes-L>R Pinguecula of both eyes PCO (posterior capsular opacification), left Other optic atrophy, left eye Hypermetropia of left eye Combined forms of age-related cataract, bilateral Blepharitis of upper eyelids of both eyes, unspecified type Allergic conjunctivitis of both eyes Blurred vision, bilateral Primary osteoarthritis of left knee Primary osteoarthritis of both knees Primary osteoarthritis of both hips-Mild Other idiopathic scoliosis, lumbar region Osteopenia determined by x-ray Osteoarthritis of left knee, unspecified osteoarthritis type HNP (herniated nucleus pulposus), lumbar-Multi level Uterine leiomyoma, unspecified location Renal cyst, right Mixed stress and urge incontinence Left renal stone Seborrheic keratosis, inflamed-Left thigh-S/P Excision CLL (chronic lymphocytic leukemia) Macrocytosis Vision loss of left eye Sacroiliitis Pseudophakia of both eyes Presbyopia Obesity (BMI 30.0-34.9) Myopia of right eye Low HDL (under 40) Irregular astigmatism of right eye Insomnia, unspecified type Hyponatremia Fatty food intolerance Former smoker-Quit 2011 Fatigue, unspecified type Episodic lightheadedness Elevated LFTs Chronic anticoagulation 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 Bilateral dry eyes ASCUS of cervix with negative high risk HPV Anxiety and depression Family history of Alzheimer's disease-Father Family history of hypertension in mother History of cataract extraction, unspecified laterality History of [id number] 09-30-2020 History of ETOH abuse S/P total knee arthroplasty, right S/P unilateral salpingo-oophorectomy Orders Placed This Encounter Procedures CBC, EDIF, PLATELET Copy to Dr. Fernando Davison. Dr. Wm. Calderon and naty Bhakta, Heme Oncology at [facility] Standing Status: Future Expected Date: 03/26/2025 Expiration Date: 03/26/2026 COMPREHENSIVE METABOLIC PANEL Standing Status: Future Expected Date: 03/26/2025 Expiration Date: 03/26/2026 HEMOGLOBIN A1C Standing Status: Future Expected Date: 03/26/2025 Expiration Date: 03/26/2026 LIPID PANEL W CALCULATED LDL Standing Status: Future Expected Date: 03/26/2025 Expiration Date: 03/26/2026 TSH Standing Status: Future Expected Date: 03/26/2025 Expiration Date: 03/26/2026 URIC ACID Standing Status: Future Expected Date: 03/26/2025 Expiration Date: 03/26/2026 VITAMIN D (25-HYDROXY,TOTAL) Standing Status: Future Expected Date: 03/26/2025 Expiration Date: 03/26/2026 MAGNESIUM Standing Status: Future Expected Date: 03/26/2025 Expiration Date: 03/26/2026 PTH INTACT Standing Status: Future Expected Date: 03/26/2025 Expiration Date: 03/26/2026 FERRITIN Standing Status: Future Expected Date: 03/26/2025 Expiration Date: 03/26/2026 IRON/IRON BINDING/TRANSFERRIN Standing Status: Future Expected Date: 03/26/2025 Expiration Date: 03/26/2026 FOLATE, SERUM Standing Status: Future Expected Date: 03/26/2025 Expiration Date: 03/26/2026 VITAMIN B12 Standing Status: Future Expected Date: 03/26/2025 Expiration Date: 03/26/2026 T4 FREE Standing Status: Future Expected Date: 03/26/2025 Expiration Date: 03/26/2026 AMB REFERRAL TO [facility] Referral Priority: Routine Referral Type: Consultation Referred to Provider: Bashir Christianson MD Number of Visits Requested: 1 Medications Discontinued During This Encounter Medication Reason DISABILITY PLACARD triamterene-hydrochlorothiazide (Dyazide) 37.5-25 MG per capsule Reorder traZODone 100 MG tablet Reorder Pantoprazole (Protonix) [address] tablet DR Reorder Lisinopril 5 MG tablet Reorder Folic acid 1 MG tablet Reorder fenofibrate 160 MG tablet Reorder Escitalopram (Lexapro) 10 MG tablet Reorder cyanocobalamin 1000 MCG tablet Reorder carveDILOL (Coreg) 12.5 MG tablet Reorder buPROPion (Wellbutrin XL) 300 MG tablet XL Reorder omega-3 acid ethyl esters 1 g capsule Reorder Current Outpatient Medications Medication Sig Dispense Refill buPROPion (Wellbutrin XL) 300 MG tablet XL Take 1 tablet by mouth every morning before breakfast. Cancel previous refills 90 tablet 0 carveDILOL (Coreg) 12.5 MG tablet Take 1 tablet by mouth 2 times daily with meals. Cancel previous refills 180 tablet 0 cyanocobalamin 1000 MCG tablet Take 1 tablet by mouth daily. Chew 1 tab q daily. Cancel previous refills 90 tablet 0 Escitalopram (Lexapro) 10 MG tablet Take 1 tablet by mouth daily. Cancel previous refills 90 tablet0 fenofibrate 160 MG tablet Take 1 tablet by mouth daily. Cancel previous refills 90 tablet 0 Folic acid 1 MG tablet Take 1 tablet by mouth daily. Cancel previous refills 90 tablet 0 Lisinopril 5 MG tablet Take 1 tablet by mouth daily. Cancel previous refills 90 tablet 0 omega-3 acid ethyl esters 1 g capsule Take 2 capsules by mouth 2 times daily. Cancel previous refills 360 capsule 0 Pantoprazole (Protonix) [address] tablet DR Take 1 tablet by mouth 2 times daily (take before meals). Cancel previous refills 180 tablet 0 traZODone 100 MG tablet Take 1 tablet by mouth at bedtime. Cancel previous refills 90 tablet 0 triamterene-hydrochlorothiazide (Dyazide) 37.5-25 MG per capsule Take 1 capsule by mouth daily. Cancel previous refills 90 capsule 0 Albuterol (Ventolin HFA) 108 (90 Base) MCG/ACT Aero Soln inhaler Inhale 2 puffs every 6 hours as needed for Wheezing. 18 g 0 Allopurinol 100 MG tablet Take 1 tablet by mouth daily. 90 tablet 3 Aspirin (SB Low Dose ASA EC) [address] tablet Take 1 tablet by mouth daily with breakfast. OTC Cetirizine 10 MG tablet Take 1 tablet by mouth daily. OTC CUSTOM MEDICATION The patient requires a Handicap placard for 5 years, as she is unable to walk more than 200 feet without stopping to rest, due to her medical conditions. 1 Each 0 Diazepam 5 MG tablet Take 1 tablet by mouth 3 times daily. Trial of med 90 tablet 1 Evolocumab (Repatha SureClick) 140 MG/ML Solution Auto-injector injection Inject 1 mL under the skin every 14 days. SATURDAYS 6 mL 3 fluticasone (Flonase Allergy Relief) 50 MCG/ACT Suspension nasal spray 2 sprays by Nasal route daily as needed. OTC magnesium oxide 400 (240 Mg) MG Take 1 tablet by mouth 2 times daily with meals. No current facility-administered medications for this visit. Counseling given: No Follow up appointment(s) have been discussed with the patient. The patient is given an After Visit Summary sheet that lists all of their medications with directions, their allergies, orders placed during this encounter, immunization dates, and follow- up instructions. Fernie Paredes DO [address] [id number] This note is electronically signed in the electronic medical record. documented in this [facility]06-03-2025 Instructions* Patient Instructions* Fernie Paredes DO - 03/26/2025 3:15 PM EDT Do fasting, well hydrated labs on approx. 06-11-25 documented in this [facility]05-02-2025 History of Present illness Narrative* Keshawn Nunez MD - 02/22/2025 11:00 AM EDT [facility] Gynecology [facility] Woman Visit Ms. Elena Galeano is a 65 y.o. who presents for her annual exam. Ms. Galeano has her general healthcare managed by Dr. Fernie Paredes. Since her last well woman exam, she has had bilateral joint surgery, bilateral knee. 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 Director Pediatric History: Last menstrual period: No LMP recorded. Patient is postmenopausal. Menses: Menopause Menarche: Age 10 Menopause: Age ~53 Last Pap: NILM (02/03/23) History of abnormal Paps: Denies Sexual activity: Partnered for 50 years. Last active ~2014. Contraception: Menopause, abstinence History of STIs: Denies Family Director Pediatric Cancer: Maternal aunt with breast cancer. Mammogram: BIRADS 1 (01/23/24). Scheduled Colonoscopy: Normal (04/07/2018). 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 She drinks alcohol occasionally. Health and Safety Wears seatbelt?: Yes Immunizations up to date? No, Delaying due to h/o CLL, lymphoma. The patient reports that there has never been intimate partner violence in her life. REVIEW OF SYSTEMS She denies any vaginal bleeding, pain, itching, burning, discharge, or odor. She denies headache, changes in vision, fevers, chills, cough, shortness of breath, nausea, vomiting, diarrhea, constipation, dysuria, or swelling of her extremities. She denies any heat/cold intolerance, activity or appetite change, unexpected weight change, changes in hair or nails, weakness or fatigue, anxiety or palpitations, neck pain or trouble swallowing. PHYSICAL EXAMINATION BP 110/74 (BP Location: Left arm, BP Position: Sitting) Pulse 70 Resp 16 Ht 5' 5 (1.651 m) Wt 204 lb 3.2 oz (92.6 kg) SpO2 99% BMI 33.98 kg/m Smoking Status Former General: WNWD, NAD HEENT: EOMI. PERRLA. Normal conjuntivae. Normal thyroid. No cervical lymphadenopathy Neuro: CN II-XII intact. Normal mood and affect. Cardio: RRR. NMRG. Normal distal pulses Pulm: CtAB. Normal work of breathing Breast: No visible erythema or gross asymmetry, bilaterally. No palpable masses, nodules, or induration bilaterally. Normal appearing nipples without discharge bilaterally. No palpable axillary nodes. Abd: Soft, NTND, normal bowel sounds. Ext: No LE edema. No calf TTP. 2+ patellar reflexes Pelvic: Normal external genitalia. No visible lesions. No palpable inguinal lymphadenopathy. Vaginal harrison without lesions, moist, pale pink, minimally rugated. Cervix anterior, partially visualized,no lesions. No apparent odor. Bimanual: No cervical motion tenderness. No adnexal fullness or tenderness. Mobile, normal sized uterus. Rectal: Deferred Lipstick Molder:Miri ASSESSMENT AND PLAN Ms. Elena Galeano is a 65 y.o. who presents for her annual exam. Schedule return in 2 years for an annual exam. Future Appointments Date Time Provider Department Center 03/06/2025 2:30 PM [facility] BONE DENSITY, ANDI 04BD [facility] 03/06/2025 3:00 PM [facility] MAMMOGRAPHY, ANDI 04MM [facility] 03/26/2025 3:15 PM Fernie Paredes DO 04FMS [facility] 09/11/2025 11:20 AM Naty Bhakta MD JOCHEM JOW 10/30/2025 1:00 PM Fernando Davison MD 04N2 [facility] 11/06/2025 11:00 AM Delilah Calderon DO 04CD [facility] 11/13/2025 1:30 PM Shi Son 04OO [facility] 02/22/2025 Keshawn Nunez MD documented in this [facility] [place]04-15-2025 History of Present illness Narrative* Danielle Mccall - 02/05/2025 2:15 PM EDT Nurse Note: Review of Systems All other systems reviewed and are negative. Nursing Assessment: Physical Exam Pt is a 65 yo female that presents for CHAVEZ review 01/14/2025 Last office visit 12/25/2024 Pt was on a trial of Diazepam 5 mg states helped symptoms * Delilah Ellis Jr., DO - 02/05/2025 2:15 PM EDT Office follow-up Date and Time: February 05, 2025 3:57 PM Patient Demographics: Elena Galeano female 1960 Wt Readings from Last 1 Encounters: 02/05/25 94.3 kg (208 lb) Chief Complaint: 65-year-old lady here regarding follow up of recent manometry Patient with a history of dysphagia and esophageal dysmotility Patient was on a trial of diazepam which is improved her symptoms by her description she was found meds more effective proximally 30 minutes prior to meals Manometry was reviewed with the patient and family with diagrams and actual testing images and tracings We discussed her recent upper GI and swallow evaluation results Patient denies any current fevers chills or night sweats She is eating and feeling better on the current medication regimen BP 135/82 (BP Location: Left arm, BP Position: Sitting) Pulse 68 Ht 1.651 m (5' 5) Wt 94.3 kg (208 lb) SpO2 98% BMI 34.61 kg/m Smoking Status Former Past Medical History: Diagnosis Date A-fib watchman device place per [facility] Arrhythmia Arthritis ASCUS of cervix with negative high risk HPV B12 deficiency Bradycardia Carotid stenosis, bilateral-Right 30%, and left 60% Central retinal artery occlusion of left eye CKD stage 3a, GFR 45-59 ml/min CLL (chronic lymphocytic leukemia) 2011 [id number] on 09-30-2020 Depression Diffuse non-Hodgkin's lymphoma chemotherapy Folate deficiency GERD (gastroesophageal reflux disease) Gout pt denies Hiatal hernia pt denies Hyperlipidemia LDL goal <70 Hypertension Hyponatremia Iron deficiency anemia Non-Hodgkin lymphoma 2012 in remission PERCY (obstructive sleep apnea) PVC's (premature ventricular contractions) 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 (blindness) Type 2 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 disease, without long-term current use of insulin Past Surgical History: Procedure Laterality Date ARTHROPLASTY KNEE TOTAL Left 11/12/2024 Laterality: Left; Surgeon: Gonsalo Blackwood MD; Location: [facility] OR EGD DIAGNOSTIC 10/29/2024 ARTHRODESIS SACROILIAC JOINT MINIMALLY INVASIVE W/ TRANSFIXING DEVICE Right 05/03/2024 Laterality: Right; Surgeon: Isreal Sigala MD; Location: [facility] OR FLUOROSCOPY IN OR Right 05/03/2024 Laterality: Right; Surgeon: Isreal Sigala MD; Location: [facility] OR I&D BURSA FOOT Left 07/08/2023 Laterality: Left; Surgeon: Dawn Uriarte DPM; Location: [facility] OR INJECTION NERVE OTHER PERIPHERAL Left 12/16/2022 Laterality: Left; Surgeon: Isreal Sigala MD; Location: [facility] OR GUIDANCE FLUOROSCOPIC NEEDLE OR CATHETER PLACEMENT FOR SPINE INJECTION ADD-ON PX Left 12/16/2022 Laterality: Left; Surgeon: Isreal Sigala MD; Location: [facility] OR SUSPENSION URETHRA/URETHROVESICAL FEMALE OPEN W/ SYNTHETIC MATERIAL (SLING) Midline 08/31/2022 Laterality: Midline; Surgeon: Dariusz Rangel MD; Location: [facility] OR CYSTOURETHROSCOPY W/ DILATION BLADDER Midline 08/31/2022 Laterality: Midline; Surgeon: Dariusz Rangel MD; Location: [facility] OR COLPORRHAPHY ANTEROPOSTERIOR REPAIR CYSTOCELE & RECTOCELE Midline 08/31/2022 Laterality: Midline; Surgeon: Dariusz Rangel MD; Location: [facility] OR ARTHRODESIS SACROILIAC JOINT MINIMALLY INVASIVE W/ TRANSFIXING DEVICE Left 06/17/2022 Laterality: Left; Surgeon: Isreal Sigala MD; Location: [facility] OR GUIDANCE FLUOROSCOPIC NEEDLE OR CATHETER PLACEMENT FOR SPINE INJECTION ADD-ON PX Left 06/17/2022 Laterality: Left; Surgeon: Isreal Sigala MD; Location: [facility] OR EGD W/ DILATION BALLOON N/A 12/01/2021 Laterality: N/A; Surgeon: Indra Parrish DO; Location: [facility] ENDOSCOPY SHOULDER ARTHROSCOPY Left 06/18/2021 REMOVAL CENTRAL VENOUS ACCESS DEVICE TUNNELED W/ PORT PUMP Left 09/13/2019 Laterality: Left; Surgeon: Eduardo Muñoz MD; Location: [facility] INTERVENTIONAL RADIOLOGY (VIR) EGD W/ DILATION BALLOON N/A 06/30/2018 Laterality: N/A; Surgeon: Indra Parrish DO; Location: [facility] ENDOSCOPY EGD DIAGNOSTIC N/A 04/07/2018 Laterality: N/A; Surgeon: Wilner Leigh MD; Location: [facility] ENDOSCOPY COLONOSCOPY DIAGNOSTIC N/A 04/07/2018 Laterality: N/A; Surgeon: Wilner Leigh MD; Location: [facility] ENDOSCOPY KNEE REPLACEMENT Right 05/2015 done at [place]--CC ARTHROPLASTY KNEE TOTAL Right 04/2015 INSERTION PICC W/ PORT PUMP 2014 power port COLONOSCOPY DIAGNOSTIC 2006 SALPINGO-OOPHORECTOMY OPEN N/A 1984 APPENDECTOMY OPEN 1983 TONSILLECTOMY ADENOIDECTOMY 1968 EGD DIAGNOSTIC 10 months ago OTHER SURGICAL Watchman Device -placed 11/24/2023 Social History Socioeconomic History Marital status: Occupational History Employer: RETIRED Tobacco Use Smoking status: Former Current packs/day: 0.00 Average packs/day: 0.8 packs/day for 35.0 years (26.3 ttl pk-yrs) Types: Cigarettes Start date: 04/23/1978 Quit date: 04/23/2013 Years since quittin.7 Smokeless tobacco: Never Vaping Use Vaping status: Never Used Substance and Sexual Activity Alcohol use: Yes Alcohol/week: 3.0 standard drinks of alcohol Types: 3 Cans of beer per week Comment: Hx ETOH abuse Drug use: Never Sexual activity: Not Currently Partners: Male control/protection: Menopause Other Topics Concern Domestic Violence No Social Drivers of Health Financial Resource Strain: Low Risk (11/10/2022) [facility] Overall Financial Resource Strain (CARDIA) Difficulty of Paying Living Expenses: Not hard at all Food Insecurity: No Food Insecurity (11/12/2024) Hunger Vital Sign Worried About Running Out of Food in the Last Year: Never true Ran Out of Food in the Last Year: Never true Transportation Needs: No Transportation Needs (11/12/2024) PRAPARE - Transportation Lack of Transportation (Medical): No Lack of Transportation (Non-Medical): No Personal Safety: Not At Risk (11/12/2024) Humiliation, Afraid, Rape, and Kick questionnaire Fear of Current or Ex-Partner: No Emotionally Abused: No Physically Abused: No Sexually Abused: No Housing Stability: Low Risk (11/12/2024) Housing Stability Vital Sign Unable to Pay for Housing in the Last Year: No Number of Times Moved in the Last Year: 0 Homeless in the Last Year: No Current Outpatient Medications: Albuterol (Ventolin HFA) 108 (90 Base) MCG/ACT Aero Soln inhaler, Inhale 2 puffs every 6 hours as needed for Wheezing., Disp: 18 g, Rfl: 0 Allopurinol 100 MG tablet, Take 1 tablet by mouth daily., Disp: 90 tablet, Rfl: 3 Aspirin (SB Low Dose ASA EC) [address] tablet, Take 1 tablet by mouth daily with breakfast. OTC,Disp: , Rfl: buPROPion (Wellbutrin XL) 300 MG tablet XL, Take 1 tablet by mouth every morning before breakfast. Cancel previous refills, Disp: 90 tablet, Rfl: 0 carveDILOL (Coreg) 12.5 MG tablet, Take 1 tablet by mouth 2 times daily with meals. Cancel previousrefills, Disp: 180 tablet, Rfl: 0 Cetirizine 10 MG tablet, Take 1 tablet by mouth daily. OTC, Disp: , Rfl: cyanocobalamin 1000 MCG tablet, Take 1 tablet by mouth daily. Chew 1 tab q daily. Cancel previous refills, Disp: 90 tablet, Rfl: 0 DISABILITY PLACARD, Disability placard End date: 02/11/2025 R26.2, Disp: 1 Each, Rfl: 0 Escitalopram (Lexapro) 10 MG tablet, Take 1 tablet by mouth daily. Cancel previous refills, Disp: 90 tablet, Rfl: 0 Evolocumab (Repatha SureClick) 140 MG/ML Solution Auto-injector injection, Inject 1 mL under the skin every 14 days. SATURDAYS, Disp: 6 mL, Rfl: 3 fenofibrate 160 MG tablet, Take 1 tablet by mouth daily. Cancel previous refills, Disp: 90 tablet, Rfl: 0 fluticasone (Flonase Allergy Relief) 50 MCG/ACT Suspension nasal spray, 2 sprays by Nasal route daily as needed. OTC, Disp: , Rfl: Folic acid 1 MG tablet, Take 1 tablet by mouth daily. Cancel previous refills, Disp: 90 tablet, Rfl: 0 Lisinopril 5 MG tablet, Take 1 tablet by mouth daily. Cancel previous refills, Disp: 90 tablet, Rfl: 0 magnesium oxide 400 (240 Mg) MG, Take 1 tablet by mouth 2 times daily with meals., Disp: , Rfl: omega-3 acid ethyl esters 1 g capsule, Take 2 capsules by mouth 2 times daily. Cancel previous refills, Disp: 360 capsule, Rfl: 0 Pantoprazole (Protonix) [address] tablet DR, Take 1 tablet by mouth 2 times daily (take before meals). Cancel previous refills, Disp: 180 tablet, Rfl: 0 traZODone 100 MG tablet, Take 1 tablet by mouth at bedtime. Cancel previous refills, Disp: 90 tablet, Rfl: 0 triamterene-hydrochlorothiazide (Dyazide) 37.5-25 MG per capsule, Take 1 capsule by mouth daily. Cancel previous refills, Disp: 90 capsule, Rfl: 0 Diazepam 5 MG tablet, Take 1 tablet by mouth 3 times daily for 5 days. Trial of med, Disp: 15 tablet, Rfl: 1 Nsaids ROS: Cardiovascular-no reported chest pain no shortness of breath Respiratory-no wheezing or coughing is reported Gastrointestinal-as per chief complaint Extremities-no gross edema deformity or dysfunction is reported Neurologic-no reported deficits Physical Exam: Alert lady no gross apparent distress evaluation no obvious deformities Cardiovascular-no JVD no ectopy Respiratory-no coughing or wheezing Abdomen-nondistended Extremities-no gross edema deformity or dysfunction reported Neurologic-grossly intact Assessment: Esophageal dysmotility documented by abnormal esophageal manometric studies Patient's with symptomatic improvement with the use of skeletal muscle relaxers No current GI alarm symptoms are reported Plan: Continue current medications Patient may consider weaning overall dose of medication to least effective dosing after several weeks to months Further recommendations are pending if symptoms recur documented in this [facility] [place]03-24-2025 Miscellaneous Notes* Nursing Notes - Dragan Pardo RN - 01/14/2025 7:00 AM EDT Manometry placed with moderate difficulty. Pt tolerated well. remained in the room. documented in this [facility] [place]03-24-2025 Nurse Note* Nursing Notes - Dragan Pardo RN - 01/14/2025 7:00 AM EDT Manometry placed with moderate difficulty. Pt tolerated well. remained in the room. [facility]03-10-2025 History of Present illness Narrative* Fernie Paredes, DO - 12/31/2024 3:00 PM EDT Subjective History of Present Illness HISTORY OF PRESENT ILLNESS: 64 y.o. female presents with complaints of: Encounter Diagnoses Name Primary? Type 2 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 disease, without long-term current use of insulin Yes Idiopathic chronic gout without tophus, unspecified site Hypoproteinemia Hypomagnesemia Hypertriglyceridemia Hyperthyroidism Hyperlipidemia LDL goal <70 Vitamin D deficiency Odynophagia Iron deficiency anemia, unspecified iron deficiency anemia type Hepatomegaly CLL (chronic lymphocytic leukemia) Macrocytosis Stage 3a chronic kidney disease Gastroesophageal reflux disease without esophagitis Folate deficiency Elevated LFTs Fatty liver Esophagitis, Clyo grade A Esophageal stenosis Duodenal diverticulum Chronic gastritis without bleeding, unspecified gastritis type B12 deficiency PVC's (premature ventricular contractions) Presence of Watchman left atrial appendage closure device Paroxysmal atrial fibrillation PAC (premature atrial contraction) Orthostasis Ischemic stroke Episodic lightheadedness Chronic obstructive pulmonary disease, unspecified COPD type Hiatal hernia Chronic sinusitis, unspecified location Moderate persistent asthma without complication PERCY on CPAP-Off BiPAP due to intolerance Non-seasonal allergic rhinitis, unspecified trigger Pulmonary emphysema, unspecified emphysema type Atherosclerosis of abdominal aorta Bilateral carotid artery stenosis-30% Right, 60% Left Bradycardia Calcification of aorta Central retinal artery occlusion of left eye Essential hypertension Hypertensive heart disease without heart failure Internal and external hemorrhoids without complication History of CVA (cerebrovascular accident) Allergic conjunctivitis of both eyes Blepharitis of upper eyelids of both eyes, unspecified type Combined forms of age-related cataract, bilateral Chronic midline low back pain without sciatica Hypermetropia of left eye Other optic atrophy, left eye PCO (posterior capsular opacification), left Pinguecula of both eyes Posterior capsular opacification non visually significant, both eyes-L>R Regular astigmatism of left eye Unspecified amblyopia, right eye HNP (herniated nucleus pulposus), lumbar-Multi level Osteoarthritis of left knee, unspecified osteoarthritis type Osteopenia determined by x-ray Other idiopathic scoliosis, lumbar region Primary osteoarthritis of both hips-Mild Primary osteoarthritis of both knees Primary osteoarthritis of left knee Spinal stenosis of lumbar region without neurogenic claudication Spondylosis of cervical region without myelopathy or radiculopathy Spondylosis of lumbar region without myelopathy or radiculopathy Left renal stone Mixed stress and urge incontinence Renal cyst, right Uterine leiomyoma, unspecified location Seborrheic keratosis, inflamed-Left thigh-S/P Excision Anxiety and depression ASCUS of cervix with negative high risk HPV Bilateral dry eyes 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 Chronic anticoagulation Fatigue, unspecified type Fatty food intolerance Former smoker-Quit 2011 Hyponatremia Insomnia, unspecified type Irregular astigmatism of right eye Low HDL (under 40) Myopia of right eye Obesity (BMI 30.0-34.9) Presbyopia Pseudophakia of both eyes Sacroiliitis Vision loss of left eye S/P unilateral salpingo-oophorectomy S/P total knee arthroplasty, right History of ETOH abuse History of [id number] 09-30-2020 History of cataract extraction, unspecified laterality Family history of hypertension in mother Family history of Alzheimer's disease-Father Encounter for screening mammogram for breast cancer Asymptomatic postmenopausal state Type 2 DM, CKD-3a, Hyperlipidemia, A. Fib and Anemia. Recent Glucose 145, GFR 82, A1C 5.6, LDL 80, TG 379, UA 8.7, D3 25.9, Mg 1.5. All other labs WNL. Non Smoker, former. +Fam Hx HTN in Mother., Still with odynophagia. Recent swallowing eval is WNL and EGD showed small hiatal hernia. Reglan did not help. +Episodic lightheadedness and orthostasis. Weight down. No blurred vision.No C.P., SOB, Edema, Palpitations, Dizziness, Fatigue, GERD, Melena, Hematochezia, Dysuria, or Frequency. All others negative on ROS. Objective Review of Systems Constitutional: Positive for unexpected weight change (Weight down). Negative for fatigue. HENT: Positive for trouble swallowing. Eyes: Negative for visual disturbance. Respiratory: Negative for shortness of breath. Cardiovascular: Negative for chest pain, palpitations and leg swelling. Gastrointestinal: Negative for abdominal pain and blood in stool. No GERD Genitourinary: Negative for dysuria and frequency. Musculoskeletal: Negative for arthralgias. Neurological: Positive for light-headedness (with poisional changes). Negative for dizziness. Psychiatric/Behavioral: Negative for dysphoric mood and sleep disturbance. The patient is not nervous/anxious. All other systems reviewed and are negative. Psych Review of Symptoms: Depressive Symptoms: No fatigue. Vitals: Blood pressure 134/64, pulse 57, temperature 97.3 F (36.3 C), resp. rate 16, height 1.651 m(5' 5), weight 93.5 kg (206 lb 3.2 oz), SpO2 99%, not currently . Physical Exam Vitals and nursing note reviewed. Constitutional: General: She is not in acute distress. Appearance: Normal appearance. She is obese. She is not ill-appearing. HENT: Head: Normocephalic and atraumatic. Nose: No congestion. Eyes: General: No scleral icterus. Right eye: No discharge. Left eye: No discharge. Extraocular Movements: Extraocular movements intact. Conjunctiva/sclera: Conjunctivae normal. Pupils: Pupils are equal, round, and reactive to light. Pulmonary: Effort: Pulmonary effort is normal. Breath sounds: No wheezing or rhonchi. Abdominal: General: Abdomen is flat. Bowel sounds are normal. There is no distension. Tenderness: There is no abdominal tenderness. Musculoskeletal: General: Normal range of motion. Cervical back: Normal range of motion and neck supple. No rigidity. No muscular tenderness. Right lower leg: No edema. Left lower leg: No edema. Skin: Coloration: Skin is not jaundiced. Findings: No bruising, erythema or rash. Neurological: General: No focal deficit present. Mental Status: She is alert and oriented to person, place, and time. Mental status is at baseline. Psychiatric: Mood and Affect: Mood normal. Behavior: Behavior normal. Thought Content: Thought content normal. Judgment: Judgment normal. Neurological Exam Mental Status Alert. Oriented to person, place, and time. Cranial Nerves CN III, IV, : Extraocular movements intact bilaterally. Pupils equal round and reactive to light bilaterally. Assessment and Plan Refills given all meds requested. Begin Lovaza 1 G 2 BID, #360, 0rf's. Diet and exercise reviewed. DC Reglan and re-schedule with Dr. Ellis for re-eval of persistent odynophagia. Change ASA to E.C. ASA 81 mg 1 q daily with breakfast. Change Magnesium to 400 mg 1 BID as was only taking 1 q daily. DC all ETOH use. GERD precautions given. COVID-19, Shingrix and Arexvy vaccines declined. Risks discussed. Refer for Carotid doppler and q 2 year and phone number given for Central Scheduling. Refer for 3-D Mammogram and DEXA to do same day after 03-01-25 and phone number given for Central Scheduling. Alaina 12-05-24 with Celestine Medrano at [facility] instead of Dr. Philip and q 12 months. Alaina 02-08-25 with Shanann Kate NP for PAP. Alaina 03-25-25, sooner prn. Alaina with CARO Guzman. Alaina 09-11-[address] Gita Bhakta at [facility]. Alaina with Brian Brush for Watchman alaina. Alaina 10-30-[address] Davison. Alaina 11-06-[address] Caldreon. Alaina 11-13-24 with Shi Son NP. Alaina Colon in . No PAP needed. Advanced primary care management services(APCM)/Principal Care Management Services(PCM) reviewed and verbal consent given. Total time spent 57 minutes, excluding tests and procedures. Diet and lifestyle counseling was given, and care coordinated. OARRS report was receivedand assessed, and is consistent with the medications prescribed. Thank you for choosing Dr. Fernie gurrola s Office at [facility] for your healthcare needs. The patients' entire past medical, surgical, family, social history, allergies, medications, recent labs, recent imaging and consultantletters were reviewed and updated. ASSESSMENT & PLAN: Encounter Diagnoses Name Primary? Type 2 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 disease, without long-term current use of insulin Yes Idiopathic chronic gout without tophus, unspecified site Hypoproteinemia Hypomagnesemia Hypertriglyceridemia Hyperthyroidism Hyperlipidemia LDL goal <70 Vitamin D deficiency Odynophagia Iron deficiency anemia, unspecified iron deficiency anemia type Hepatomegaly CLL (chronic lymphocytic leukemia) Macrocytosis Stage 3a chronic kidney disease Gastroesophageal reflux disease without esophagitis Folate deficiency Elevated LFTs Fatty liver Esophagitis, Clyo grade A Esophageal stenosis Duodenal diverticulum Chronic gastritis without bleeding, unspecified gastritis type B12 deficiency PVC's (premature ventricular contractions) Presence of Watchman left atrial appendage closure device Paroxysmal atrial fibrillation PAC (premature atrial contraction) Orthostasis Ischemic stroke Episodic lightheadedness Chronic obstructive pulmonary disease, unspecified COPD type Hiatal hernia Chronic sinusitis, unspecified location Moderate persistent asthma without complication PERCY on CPAP-Off BiPAP due to intolerance Non-seasonal allergic rhinitis, unspecified trigger Pulmonary emphysema, unspecified emphysema type Atherosclerosis of abdominal aorta Bilateral carotid artery stenosis-30% Right, 60% Left Bradycardia Calcification of aorta Central retinal artery occlusion of left eye Essential hypertension Hypertensive heart disease without heart failure Internal and external hemorrhoids without complication History of CVA (cerebrovascular accident) Allergic conjunctivitis of both eyes Blepharitis of upper eyelids of both eyes, unspecified type Combined forms of age-related cataract, bilateral Chronic midline low back pain without sciatica Hypermetropia of left eye Other optic atrophy, left eye PCO (posterior capsular opacification), left Pinguecula of both eyes Posterior capsular opacification non visually significant, both eyes-L>R Regular astigmatism of left eye Unspecified amblyopia, right eye HNP (herniated nucleus pulposus), lumbar-Multi level Osteoarthritis of left knee, unspecified osteoarthritis type Osteopenia determined by x-ray Other idiopathic scoliosis, lumbar region Primary osteoarthritis of both hips-Mild Primary osteoarthritis of both knees Primary osteoarthritis of left knee Spinal stenosis of lumbar region without neurogenic claudication Spondylosis of cervical region without myelopathy or radiculopathy Spondylosis of lumbar region without myelopathy or radiculopathy Left renal stone Mixed stress and urge incontinence Renal cyst, right Uterine leiomyoma, unspecified location Seborrheic keratosis, inflamed-Left thigh-S/P Excision Anxiety and depression ASCUS of cervix with negative high risk HPV Bilateral dry eyes 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 Chronic anticoagulation Fatigue, unspecified type Fatty food intolerance Former smoker-Quit 2011 Hyponatremia Insomnia, unspecified type Irregular astigmatism of right eye Low HDL (under 40) Myopia of right eye Obesity (BMI 30.0-34.9) Presbyopia Pseudophakia of both eyes Sacroiliitis Vision loss of left eye S/P unilateral salpingo-oophorectomy S/P total knee arthroplasty, right History of ETOH abuse History of [id number] 09-30-2020 History of cataract extraction, unspecified laterality Family history of hypertension in mother Family history of Alzheimer's disease-Father Encounter for screening mammogram for breast cancer Asymptomatic postmenopausal state Orders Placed This Encounter Procedures US CAROTID DUPLEX Copy to Dr. Wm. Calderon and Dr. Brian Brush at [facility] Cardiology Standing Status: Future Expected Date: 12/31/2024 Expiration Date: 12/31/2025 Reason for Exam: Bilateral carotid stenosis MAMMO SCREENING WITH ALEAXNDER BILATERAL Standing Status: Future Expected Date: 12/31/2024 Expiration Date: 12/31/2025 Reason for Exam: Encounter for scvreening Mammogram Preferred Location: [facility] [4] BONE DENSITY AXIAL (HIP, PELVIS, SPINE) Standing Status: Future Expected Date: 12/31/2024 Expiration Date: 12/31/2025 Reason for Exam: Asymptomatic postmenopausal state Medications Discontinued During This Encounter Medication Reason therapeutic multivitamin-minerals tablet oxyCODONE 5 MG tablet naloxone 4 MG/0.1ML Metoclopramide 10 MG tablet hydroCODone-acetaminophen 5-325 MG tablet Docusate 100 MG capsule Celecoxib 100 MG capsule Aspirin [address] tablet Amoxicillin 500 MG capsule Acetaminophen 325 MG tablet triamterene-hydrochlorothiazide (Dyazide) 37.5-25 MG per capsule Reorder traZODone 100 MG tablet Reorder Pantoprazole (Protonix) [address] tablet DR Reorder Lisinopril 5 MG tablet Reorder Folic acid 1 MG tablet Reorder fenofibrate 160 MG tablet Reorder Escitalopram (Lexapro) 10 MG tablet Reorder cyanocobalamin 1000 MCG tablet Reorder carveDILOL (Coreg) 12.5 MG tablet Reorder buPROPion (Wellbutrin XL) 300 MG tablet XL Reorder Current Outpatient Medications Medication Sig Dispense Refill buPROPion (Wellbutrin XL) 300 MG tablet XL Take 1 tablet by mouth every morning before breakfast. Cancel previous refills 90 tablet 0 carveDILOL (Coreg) 12.5 MG tablet Take 1 tablet by mouth 2 times daily with meals. Cancel previous refills 180 tablet 0 cyanocobalamin 1000 MCG tablet Take 1 tablet by mouth daily. Chew 1 tab q daily. Cancel previous refills 90 tablet 0 Escitalopram (Lexapro) 10 MG tablet Take 1 tablet by mouth daily. Cancel previous refills 90 tablet0 fenofibrate 160 MG tablet Take 1 tablet by mouth daily. Cancel previous refills 90 tablet 0 Folic acid 1 MG tablet Take 1 tablet by mouth daily. Cancel previous refills 90 tablet 0 Lisinopril 5 MG tablet Take 1 tablet by mouth daily. Cancel previous refills 90 tablet 0 Pantoprazole (Protonix) [address] tablet DR Take 1 tablet by mouth 2 times daily (take before meals). Cancel previous refills 180 tablet 0 traZODone 100 MG tablet Take 1 tablet by mouth at bedtime. Cancel previous refills 90 tablet 0 triamterene-hydrochlorothiazide (Dyazide) 37.5-25 MG per capsule Take 1 capsule by mouth daily. Cancel previous refills 90 capsule 0 Albuterol (Ventolin HFA) 108 (90 Base) MCG/ACT Aero Soln inhaler Inhale 2 puffs every 6 hours as needed for Wheezing. 18 g 0 Allopurinol 100 MG tablet Take 1 tablet by mouth daily. 90 tablet 3 Aspirin (SB Low Dose ASA EC) [address] tablet Take 1 tablet by mouth daily with breakfast. OTC Cetirizine 10 MG tablet Take 1 tablet by mouth daily. OTC Evolocumab (Repatha SureClick) 140 MG/ML Solution Auto-injector injection Inject 1 mL under the skin every 14 days. SATURDAYS 6 mL 3 fluticasone (Flonase Allergy Relief) 50 MCG/ACT Suspension nasal spray 2 sprays by Nasal route daily as needed. OTC magnesium oxide 400 (240 Mg) MG Take 1 tablet by mouth 2 times daily with meals. omega-3 acid ethyl esters 1 g capsule Take 2 capsules by mouth 2 times daily. Cancel previous refills 360 capsule 0 No current facility-administered medications for this visit. Counseling given: No Follow up appointment(s) have been discussed with the patient. The patient is given an After Visit Summary sheet that lists all of their medications with directions, their allergies, orders placed during this encounter, immunization dates, and follow- up instructions. Fernie Paredes DO [address] [id number] This note is electronically signed in the electronic medical record. [facility] History of Present illness Narrative* Luisa Cano - 12/26/2024 11:00 AM EST Ortho Nurse - Established Patient Intake Room#: room 3---- pt is here today for a 3 wk follow-up appt from her appt on 12/05 for a ROM and pain control check. She states she about 75 % better. Her ROM at her last therapy session was 110. Shedoes feel she is able to control her pain better now than she was before. She rates her pain on a scale of 3/10. Date: 12/26/2024 10:33 AM Patient: Elena Galeano MR#: [id number] : 1960 Age: 64 y.o. Referring Physician: Self, Self Insurance: Payor: MEDICARE / Plan: MEDICARE A AND B / Product Type: *No Product type* / Chief Complaint Patient presents with Left Knee - Follow-up There were no vitals taken for this visit. Pain 1. Are you having pain? 2. On a scale from 1-10: Recent Labs Lab Results Component Value Date CRP 14.5 (H) 08/04/2023 Lab Results Component Value Date SEDRATE 16 08/04/2023 Lab Results Component Value Date WBC 9.6 11/13/2024 HGB 10.6 (L) 11/13/2024 HCT 31.4 (L) 11/13/2024 PLATELET 159 11/13/2024 MCV 95.2 11/13/2024 History Past Medical History: Diagnosis Date Non-Hodgkin lymphoma 2011 in remission CLL (chronic lymphocytic leukemia) 2011 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 (blindness) A-fib watchman device place per [facility] Arrhythmia Arthritis ASCUS of cervix with negative high risk HPV B12 deficiency Carotid stenosis, bilateral-Right 30%, and left 60% Central retinal artery occlusion of left eye CKD stage 3a, GFR 45-59 ml/min [id number] on 09-30-2020 Depression Diffuse non-Hodgkin's lymphoma chemotherapy Folate deficiency GERD (gastroesophageal reflux disease) Gout pt denies Hiatal hernia pt denies Hyperlipidemia LDL goal <70 Hypertension Hyponatremia Iron deficiency anemia PERCY (obstructive sleep apnea) PVC's (premature ventricular contractions) Type 2 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 disease, without long-term current use of insulin Past Surgical History: Procedure Laterality Date ARTHROPLASTY KNEE TOTAL Left 11/12/2024 Laterality: Left; Surgeon: Gonsalo Blackwood MD; Location: [facility] OR EGD DIAGNOSTIC 10/29/2024 ARTHRODESIS SACROILIAC JOINT MINIMALLY INVASIVE W/ TRANSFIXING DEVICE Right 05/03/2024 Laterality: Right; Surgeon: Isreal Sigala MD; Location: [facility] OR FLUOROSCOPY IN OR Right 05/03/2024 Laterality: Right; Surgeon: Isreal Sigala MD; Location: [facility] OR I&D BURSA FOOT Left 07/08/2023 Laterality: Left; Surgeon: Dawn Uriarte DPM; Location: [facility] OR INJECTION NERVE OTHER PERIPHERAL Left 12/16/2022 Laterality: Left; Surgeon: Isreal Sigala MD; Location: [facility] OR GUIDANCE FLUOROSCOPIC NEEDLE OR CATHETER PLACEMENT FOR SPINE INJECTION ADD-ON PX Left 12/16/2022 Laterality: Left; Surgeon: Isreal Sigala MD; Location: [facility] OR SUSPENSION URETHRA/URETHROVESICAL FEMALE OPEN W/ SYNTHETIC MATERIAL (SLING) Midline 08/31/2022 Laterality: Midline; Surgeon: Dariusz Rangel MD; Location: [facility] OR CYSTOURETHROSCOPY W/ DILATION BLADDER Midline 08/31/2022 Laterality: Midline; Surgeon: Dariusz Rangel MD; Location: [facility] OR COLPORRHAPHY ANTEROPOSTERIOR REPAIR CYSTOCELE & RECTOCELE Midline 08/31/2022 Laterality: Midline; Surgeon: Dariusz Rangel MD; Location: [facility] OR ARTHRODESIS SACROILIAC JOINT MINIMALLY INVASIVE W/ TRANSFIXING DEVICE Left 06/17/2022 Laterality: Left; Surgeon: Isreal Sigala MD; Location: [facility] OR GUIDANCE FLUOROSCOPIC NEEDLE OR CATHETER PLACEMENT FOR SPINE INJECTION ADD-ON PX Left 06/17/2022 Laterality: Left; Surgeon: Isreal Sigala MD; Location: [facility] OR EGD W/ DILATION BALLOON N/A 12/01/2021 Laterality: N/A; Surgeon: Indra Parrish DO; Location: [facility] ENDOSCOPY SHOULDER ARTHROSCOPY Left 06/18/2021 REMOVAL CENTRAL VENOUS ACCESS DEVICE TUNNELED W/ PORT PUMP Left 09/13/2019 Laterality: Left; Surgeon: Eduardo Muñoz MD; Location: [facility] INTERVENTIONAL RADIOLOGY (VIR) EGD W/ DILATION BALLOON N/A 06/30/2018 Laterality: N/A; Surgeon: Indra Parrish DO; Location: [facility] EGD DIAGNOSTIC N/A 04/07/2018 Laterality: N/A; Surgeon: Wilner Leigh MD; Location: [facility] COLONOSCOPY DIAGNOSTIC N/A 04/07/2018 Laterality: N/A; Surgeon: Wilner Leigh MD; Location: [facility] KNEE REPLACEMENT Right 05/2015 done at [place]--CC ARTHROPLASTY KNEE TOTAL Right 04/2015 INSERTION PICC W/ PORT PUMP 2014 power port COLONOSCOPY DIAGNOSTIC 2006 SALPINGO-OOPHORECTOMY OPEN N/A 1983 APPENDECTOMY OPEN 1983 TONSILLECTOMY ADENOIDECTOMY 1967 EGD DIAGNOSTIC 10 months ago OTHER SURGICAL Watchman Device -placed 11/24/2023 Family History: Her family history includes Anesth Problems in her sister; Arrhythmia in her father; Autism in her grandson; Breast Cancer in her maternal aunt; Cancer in her paternal aunt; Cancer- Other in her maternal uncle; Clotting Disorder in her mother; Dementia in her father; Depression in her mother; Hypertension in her mother and son; Lipid Disorder in her daughter and mother; Liver Disease in her mother; Lung Cancer in her maternal grandfather; No known problems in her daughter; Ovarian Cancer in her paternal aunt. Social History: Her reports that she quit smoking about 11 years ago. Her smoking use included cigarettes. She started smoking about 46 years ago. She has a 26.3 pack-year smoking history. She has never used smokeless tobacco. She reports current alcohol use of about 3.0 standard drinks of alcohol per week. She reports that she does not use drugs. Outpatient Medications Prior to Visit Medication Sig Dispense Refill Acetaminophen 325 MG tablet Take 2 tablets by mouth every 6 hours as needed for Mild Pain. 50 tablet 1 Albuterol (Ventolin HFA) 108 (90 Base) MCG/ACT Aero Soln inhaler Inhale 2 puffs every 6 hours as needed for Wheezing. 18 g 0 Allopurinol 100 MG tablet Take 1 tablet by mouth daily. 90 tablet 3 Amoxicillin 500 MG capsule Take 4 capsules 1 hour before procedure (Patient not taking: Reported on12/25/2024) 8 capsule 1 Aspirin [address] tablet Take 1 tab twice a day for 30 days. This medication is for blood clot prevention. 60 tablet 0 buPROPion (Wellbutrin XL) 300 MG tablet XL Take 1 tablet by mouth every morning before breakfast. Cancel previous refills 90 tablet 0 carveDILOL (Coreg) 12.5 MG tablet Take 1 tablet by mouth 2 times daily with meals. Cancel previous refills 180 tablet 0 Celecoxib 100 MG capsule Take 1 capsule by mouth 2 times daily. 60 capsule 0 Cetirizine 10 MG tablet Take 1 tablet by mouth daily. OTC cyanocobalamin 1000 MCG tablet Take 1 tablet by mouth daily. Chew 1 tab q daily. Cancel previous refills 90 tablet 0 Docusate 100 MG capsule Take 1 capsule by mouth 2 times daily. (Patient not taking: Reported on 12/25/2024) 60 capsule 0 Escitalopram (Lexapro) 10 MG tablet Take 1 tablet by mouth daily. Cancel previous refills 90 tablet0 Evolocumab (Repatha SureClick) 140 MG/ML Solution Auto-injector injection Inject 1 mL under the skin every 14 days. SATURDAYS 6 mL 3 fenofibrate 160 MG tablet Take 1 tablet by mouth daily. Cancel previous refills 90 tablet 0 fluticasone (Flonase Allergy Relief) 50 MCG/ACT Suspension nasal spray 2 sprays by Nasal route daily as needed. OTC Folic acid 1 MG tablet Take 1 tablet by mouth daily. Cancel previous refills 90 tablet 0 hydroCODone-acetaminophen 5-325 MG tablet Take 1-2 tablets by mouth every 8 hours as needed for Severe Pain for up to 7 days. Do not take over 4000mg acetaminophen daily. 20 tablet 0 Lisinopril 5 MG tablet Take 1 tablet by mouth daily. Cancel previous refills 90 tablet 0 magnesium oxide 400 (240 Mg) MG Take 1 tablet by mouth 2 times daily with meals. Metoclopramide 10 MG tablet Take 1 tablet by mouth 4 times daily for 5 days. Try 1/2 tab initially if no effect ,try to double 20 tablet 1 naloxone 4 MG/0.1ML 1 spray by Nasal route once for 1 dose. Alamo into the nose as directed. Call 911. If no response in 2 minutes use a new nasal spray in other nostril. Repeat until help arrives. 1Each 0 oxyCODONE 5 MG tablet Take 1-2 tabs po q 4-6 hours prn pain. Wean as tolerated. 30 tablet 0 Pantoprazole (Protonix) [address] tablet DR Take 1 tablet by mouth 2 times daily (take before meals). Cancel previous refills 180 tablet 0 therapeutic multivitamin-minerals tablet Take 1 tablet by mouth at bedtime. 30 tablet 0 traZODone 100 MG tablet Take 1 tablet by mouth at bedtime. Cancel previous refills 90 tablet 0 triamterene-hydrochlorothiazide (Dyazide) 37.5-25 MG per capsule Take 1 capsule by mouth daily. Cancel previous refills 90 capsule 0 No facility-administered medications prior to visit. Allergies: She is allergic to nsaids. * Shi Herringleón - 12/26/2024 11:00 AM EST HPI: Elena Galeano is now 6 weeks s/p left TKA. She is here today for follow up as at last visit shewas having a lot of issue with pain control and was struggling with recovery.. She reports today that she has no new complaints and feels that everything is now going very well. Her pain is controlled and she is seeing progression with her recovery. She is participating in PT in the OP setting although she did miss a few sessions due to personal conflict. She has a visit with them later this week. She has completed her regimen for DVT prophylaxis along with compression stockings. She is using Tylenol as needed for pain control, thinks she has completed her celebrex prescription. PHYSICAL EXAM: Today on examination she is Ht 1.651 m (5' 5) Wt 93 kg (205 lb) BMI 34.11 kg/m Smoking Status Former Body mass index is 34.11 kg/m . Pain is reported as 3/10. Incision is well healed without erythema, drainage, induration or evidence of dehiscence. There is moderate global knee swelling. Calves are soft and non tender bilaterally with negative Homans sign. Distal neurovascular exam is intact. ROM is found to be 2-115. The examination is stable to varus and valgus stress. DIAGNOSTIC STUDIES/INTERPRETATION: X-rays were reviewed today and reveal Cementless total knee arthroplasty in good position and alignment unchanged from the immediate postop films. Assessment/Plan: 6 weeks postop left TKA, doing well. -Ongoing wound care was discussed -Discussed what to expect from this knee in the coming post operative period as well as recommendation for gradual progression of activity. -Continue physical therapy- if ROM goals not obtained She knows to call the office for a follow up appointment. -We will otherwise plan for follow up at 1 year post op for radiological and clinical evaluation unless an earlier need should arise. 4 month pamphlet was provided and reviewed. All questions and concerns were addressed at this appointment and the patient expressed understanding. They were encouraged to call in to the office should any new concerns arise. All pertinent portions of the clinical technical support 1 software engineer documentation was reviewed and agree. Shi Son I have reviewed the findings of the clinical technical support 1 software engineer and agree with their assessment. Shi Son Ortho Nurse - Established Patient Intake Room#: room 3---- pt is here today for a 3 wk follow-up appt from her appt on 12/05 for a ROM and pain control check. She states she about 75 % better. Her ROM at her last therapy session was 110. Shedoes feel she is able to control her pain better now than she was before. She rates her pain on a scale of 3/10. Date: 12/26/2024 10:33 AM Patient: Elena Galeano MR#: [id number] : 1960 Age: 64 y.o. Referring Physician: Self, Self Insurance: Payor: MEDICARE / Plan: MEDICARE A AND B / Product Type: *No Product type* / Chief Complaint Patient presents with Left Knee - Follow-up There were no vitals taken for this visit. Pain 1. Are you having pain? 2. On a scale from 1-10: Recent Labs Lab Results Component Value Date CRP 14.5 (H) 08/04/2023 Lab Results Component Value Date SEDRATE 16 08/04/2023 Lab Results Component Value Date WBC 9.6 11/13/2024 HGB 10.6 (L) 11/13/2024 HCT 31.4 (L) 11/13/2024 PLATELET 159 11/13/2024 MCV 95.2 11/13/2024 History Past Medical History: Diagnosis Date Non-Hodgkin lymphoma 2011 in remission CLL (chronic lymphocytic leukemia) 2012 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 (blindness) A-fib watchman device place per [facility] Arrhythmia Arthritis ASCUS of cervix with negative high risk HPV B12 deficiency Carotid stenosis, bilateral-Right 30%, and left 60% Central retinal artery occlusion of left eye CKD stage 3a, GFR 45-59 ml/min [id number] on 09-30-2020 Depression Diffuse non-Hodgkin's lymphoma chemotherapy Folate deficiency GERD (gastroesophageal reflux disease) Gout pt denies Hiatal hernia pt denies Hyperlipidemia LDL goal <70 Hypertension Hyponatremia Iron deficiency anemia PERCY (obstructive sleep apnea) PVC's (premature ventricular contractions) Type 2 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 disease, without long-term current use of insulin Past Surgical History: Procedure Laterality Date ARTHROPLASTY KNEE TOTAL Left 11/12/2024 Laterality: Left; Surgeon: Gonsalo Blackwood MD; Location: [facility] OR EGD DIAGNOSTIC 10/29/2024 ARTHRODESIS SACROILIAC JOINT MINIMALLY INVASIVE W/ TRANSFIXING DEVICE Right 05/03/2024 Laterality: Right; Surgeon: Isreal Sigala MD; Location: [facility] OR FLUOROSCOPY IN OR Right 05/03/2024 Laterality: Right; Surgeon: Isreal Sigala MD; Location: [facility] OR I&D BURSA FOOT Left 07/08/2023 Laterality: Left; Surgeon: Dawn Uriarte DPM; Location: [facility] OR INJECTION NERVE OTHER PERIPHERAL Left 12/16/2022 Laterality: Left; Surgeon: Isreal Sigala MD; Location: [facility] OR GUIDANCE FLUOROSCOPIC NEEDLE OR CATHETER PLACEMENT FOR SPINE INJECTION ADD-ON PX Left 12/16/2022 Laterality: Left; Surgeon: Isreal Sigala MD; Location: [facility] OR SUSPENSION URETHRA/URETHROVESICAL FEMALE OPEN W/ SYNTHETIC MATERIAL (SLING) Midline 08/31/2022 Laterality: Midline; Surgeon: Dariusz Rangel MD; Location: [facility] OR CYSTOURETHROSCOPY W/ DILATION BLADDER Midline 08/31/2022 Laterality: Midline; Surgeon: Dariusz Rangel MD; Location: [facility] OR COLPORRHAPHY ANTEROPOSTERIOR REPAIR CYSTOCELE & RECTOCELE Midline 08/31/2022 Laterality: Midline; Surgeon: Dariusz Rangel MD; Location: [facility] OR ARTHRODESIS SACROILIAC JOINT MINIMALLY INVASIVE W/ TRANSFIXING DEVICE Left 06/17/2022 Laterality: Left; Surgeon: Isreal Sigala MD; Location: [facility] OR GUIDANCE FLUOROSCOPIC NEEDLE OR CATHETER PLACEMENT FOR SPINE INJECTION ADD-ON PX Left 06/17/2022 Laterality: Left; Surgeon: Isreal Sigala MD; Location: [facility] OR EGD W/ DILATION BALLOON N/A 12/01/2021 Laterality: N/A; Surgeon: Indra Parrish DO; Location: [facility] SHOULDER ARTHROSCOPY Left 06/18/2021 REMOVAL CENTRAL VENOUS ACCESS DEVICE TUNNELED W/ PORT PUMP Left 09/13/2019 Laterality: Left; Surgeon: Eduardo Muñoz MD; Location: [facility] INTERVENTIONAL RADIOLOGY (VIR) EGD W/ DILATION BALLOON N/A 06/30/2018 Laterality: N/A; Surgeon: Indra Parrish DO; Location: [facility] EGD DIAGNOSTIC N/A 04/07/2018 Laterality: N/A; Surgeon: Wilner Leigh MD; Location: [facility] COLONOSCOPY DIAGNOSTIC N/A 04/07/2018 Laterality: N/A; Surgeon: Wilner Leigh MD; Location: [facility] KNEE REPLACEMENT Right 05/2015 done at [place]--CC ARTHROPLASTY KNEE TOTAL Right 04/2015 INSERTION PICC W/ PORT PUMP 2014 power port COLONOSCOPY DIAGNOSTIC 2006 SALPINGO-OOPHORECTOMY OPEN N/A 1983 APPENDECTOMY OPEN 1983 TONSILLECTOMY ADENOIDECTOMY 1967 EGD DIAGNOSTIC 10 months ago OTHER SURGICAL Watchman Device -placed 11/24/2023 Family History: Her family history includes Anesth Problems in her sister; Arrhythmia in her father; Autism in her grandson; Breast Cancer in her maternal aunt; Cancer in her paternal aunt; Cancer- Other in her maternal uncle; Clotting Disorder in her mother; Dementia in her father; Depression in her mother; Hypertension in her mother and son; Lipid Disorder in her daughter and mother; Liver Disease in her mother; Lung Cancer in her maternal grandfather; No known problems in her daughter; Ovarian Cancer in her paternal aunt. Social History: Her reports that she quit smoking about 11 years ago. Her smoking use included cigarettes. She started smoking about 46 years ago. She has a 26.3 pack-year smoking history. She has never used smokeless tobacco. She reports current alcohol use of about 3.0 standard drinks of alcohol per week. She reports that she does not use drugs. Outpatient Medications Prior to Visit Medication Sig Dispense Refill Acetaminophen 325 MG tablet Take 2 tablets by mouth every 6 hours as needed for Mild Pain. 50 tablet 1 Albuterol (Ventolin HFA) 108 (90 Base) MCG/ACT Aero Soln inhaler Inhale 2 puffs every 6 hours as needed for Wheezing. 18 g 0 Allopurinol 100 MG tablet Take 1 tablet by mouth daily. 90 tablet 3 Amoxicillin 500 MG capsule Take 4 capsules 1 hour before procedure (Patient not taking: Reported on12/25/2024) 8 capsule 1 Aspirin [address] tablet Take 1 tab twice a day for 30 days. This medication is for blood clot prevention. 60 tablet 0 buPROPion (Wellbutrin XL) 300 MG tablet XL Take 1 tablet by mouth every morning before breakfast. Cancel previous refills 90 tablet 0 carveDILOL (Coreg) 12.5 MG tablet Take 1 tablet by mouth 2 times daily with meals. Cancel previous refills 180 tablet 0 Celecoxib 100 MG capsule Take 1 capsule by mouth 2 times daily. 60 capsule 0 Cetirizine 10 MG tablet Take 1 tablet by mouth daily. OTC cyanocobalamin 1000 MCG tablet Take 1 tablet by mouth daily. Chew 1 tab q daily. Cancel previous refills 90 tablet 0 Docusate 100 MG capsule Take 1 capsule by mouth 2 times daily. (Patient not taking: Reported on 12/25/2024) 60 capsule 0 Escitalopram (Lexapro) 10 MG tablet Take 1 tablet by mouth daily. Cancel previous refills 90 tablet0 Evolocumab (Repatha SureClick) 140 MG/ML Solution Auto-injector injection Inject 1 mL under the skin every 14 days. SATURDAYS 6 mL 3 fenofibrate 160 MG tablet Take 1 tablet by mouth daily. Cancel previous refills 90 tablet 0 fluticasone (Flonase Allergy Relief) 50 MCG/ACT Suspension nasal spray 2 sprays by Nasal route daily as needed. OTC Folic acid 1 MG tablet Take 1 tablet by mouth daily. Cancel previous refills 90 tablet 0 hydroCODone-acetaminophen 5-325 MG tablet Take 1-2 tablets by mouth every 8 hours as needed for Severe Pain for up to 7 days. Do not take over 4000mg acetaminophen daily. 20 tablet 0 Lisinopril 5 MG tablet Take 1 tablet by mouth daily. Cancel previous refills 90 tablet 0 magnesium oxide 400 (240 Mg) MG Take 1 tablet by mouth 2 times daily with meals. Metoclopramide 10 MG tablet Take 1 tablet by mouth 4 times daily for 5 days. Try 1/2 tab initially if no effect ,try to double 20 tablet 1 naloxone 4 MG/0.1ML 1 spray by Nasal route once for 1 dose. Alamo into the nose as directed. Call 911. If no response in 2 minutes use a new nasal spray in other nostril. Repeat until help arrives. 1Each 0 oxyCODONE 5 MG tablet Take 1-2 tabs po q 4-6 hours prn pain. Wean as tolerated. 30 tablet 0 Pantoprazole (Protonix) [address] tablet DR Take 1 tablet by mouth 2 times daily (take before meals). Cancel previous refills 180 tablet 0 therapeutic multivitamin-minerals tablet Take 1 tablet by mouth at bedtime. 30 tablet 0 traZODone 100 MG tablet Take 1 tablet by mouth at bedtime. Cancel previous refills 90 tablet 0 triamterene-hydrochlorothiazide (Dyazide) 37.5-25 MG per capsule Take 1 capsule by mouth daily. Cancel previous refills 90 capsule 0 No facility-administered medications prior to visit. Allergies: She is allergic to nsaids. [facility] History of Present illness Narrative* Danielle Mccall - 12/25/2024 2:00 PM EST Nurse Note: Review of Systems Constitutional: Positive for unexpected weight change. Gastrointestinal: Positive for vomiting. Nursing Assessment: Physical Exam Pt is a 64 yo female that presents for vomiting and weight loss Last office visit 10/23/2024 10/29/2024 EGD 11/29/2024 speech modified barium swallow * Delilah Ellis Jr., - 12/25/2024 2:00 PM EST Office follow-up Date and Time: December 25, 2024 4:15 PM Patient Demographics: Elena Galeano female 1960 Wt Readings from Last 1 Encounters: 12/25/24 93.2 kg (205 lb 6.4 oz) Chief Complaint: 64-year-old lady history of continued issues with dysphagia persistent vomiting and weight loss We had seen originally back in October 16 dysphagia as above with iron- deficiency previous EGD colonoscopy 2017 reported as negative EGD 2021 revealed a questionable esophageal stenosis which is apparently dilated EGD completed November 17 no stricture noted small hiatal hernia Barium swallow with speech assistance was negative for aspiration or dysmotility Patient is currently on allopurinol and aspirin daily Celebrex Lexapro and CUCA inhibitor She is on Protonix also currently by history Patient continues to describe poor appetite which she feels is related to her disability and swallowing Status post structural evaluations as described above with no obvious etiology Discussed with the patient and family today possible esophageal dysmotility as an etiology of thesesymptoms Patient reports that she did not have her classic symptoms when any of these tests were ongoing She does deny water brash or regurgitation No other lower symptoms are reported We discussed esophageal dysmotility esophageal spasms we discussed decreasing differences and intubation of the upper end lower 2/3 of the esophagus differences medications as a prokinetic effect or relaxer We discussed her structural evaluations to date We discussed possible manometric testing BP 125/70 (BP Location: Left arm, BP Position: Sitting) Pulse 72 Ht 1.651 m (5' 5) Wt 93.2 kg (205 lb 6.4 oz) SpO2 96% BMI 34.18 kg/m Smoking Status Former Past Medical History: Diagnosis Date A-fib watchman device place per [facility] Arrhythmia Arthritis ASCUS of cervix with negative high risk HPV B12 deficiency Carotid stenosis, bilateral-Right 30%, and left 60% Central retinal artery occlusion of left eye CKD stage 3a, GFR 45-59 ml/min CLL (chronic lymphocytic leukemia) 2011 [id number] on 09-30-2020 Depression Diffuse non-Hodgkin's lymphoma chemotherapy Folate deficiency GERD (gastroesophageal reflux disease) Gout pt denies Hiatal hernia pt denies Hyperlipidemia LDL goal <70 Hypertension Hyponatremia Iron deficiency anemia Non-Hodgkin lymphoma 2012 in remission PERCY (obstructive sleep apnea) PVC's (premature ventricular contractions) 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 (blindness) Type 2 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 disease, without long-term current use of insulin Past Surgical History: Procedure Laterality Date ARTHROPLASTY KNEE TOTAL Left 11/12/2024 Laterality: Left; Surgeon: Gonsalo Blackwood MD; Location: [facility] OR EGD DIAGNOSTIC 10/29/2024 ARTHRODESIS SACROILIAC JOINT MINIMALLY INVASIVE W/ TRANSFIXING DEVICE Right 05/03/2024 Laterality: Right; Surgeon: Isreal Sigala MD; Location: [facility] OR FLUOROSCOPY IN OR Right 05/03/2024 Laterality: Right; Surgeon: Isreal Sigala MD; Location: [facility] OR I&D BURSA FOOT Left 07/08/2023 Laterality: Left; Surgeon: Dawn Uriarte DPM; Location: [facility] OR INJECTION NERVE OTHER PERIPHERAL Left 12/16/2022 Laterality: Left; Surgeon: Isreal Sigala MD; Location: [facility] OR GUIDANCE FLUOROSCOPIC NEEDLE OR CATHETER PLACEMENT FOR SPINE INJECTION ADD-ON PX Left 12/16/2022 Laterality: Left; Surgeon: Isreal Sigala MD; Location: [facility] OR SUSPENSION URETHRA/URETHROVESICAL FEMALE OPEN W/ SYNTHETIC MATERIAL (SLING) Midline 08/31/2022 Laterality: Midline; Surgeon: Dariusz Rangel MD; Location: [facility] OR CYSTOURETHROSCOPY W/ DILATION BLADDER Midline 08/31/2022 Laterality: Midline; Surgeon: Dariusz Rangel MD; Location: [facility] OR COLPORRHAPHY ANTEROPOSTERIOR REPAIR CYSTOCELE & RECTOCELE Midline 08/31/2022 Laterality: Midline; Surgeon: Dariusz Rangel MD; Location: [facility] OR ARTHRODESIS SACROILIAC JOINT MINIMALLY INVASIVE W/ TRANSFIXING DEVICE Left 06/17/2022 Laterality: Left; Surgeon: Isreal Sigala MD; Location: [facility] OR GUIDANCE FLUOROSCOPIC NEEDLE OR CATHETER PLACEMENT FOR SPINE INJECTION ADD-ON PX Left 06/17/2022 Laterality: Left; Surgeon: Isreal Sigala MD; Location: [facility] OR EGD W/ DILATION BALLOON N/A 12/01/2021 Laterality: N/A; Surgeon: Indra Parrish DO; Location: [facility] ENDOSCOPY SHOULDER ARTHROSCOPY Left 06/18/2021 REMOVAL CENTRAL VENOUS ACCESS DEVICE TUNNELED W/ PORT PUMP Left 09/13/2019 Laterality: Left; Surgeon: Eduardo Muñoz MD; Location: [facility] INTER[facility] RADIOLOG[facility] (VIR) EGD W/ DILATION BALLOON N/A 06/30/2018 Laterality: N/A; Surgeon: Indra Parrish DO; Location: [facility] EGD DIAGNOSTIC N/A 04/07/2018 Laterality: N/A; Surgeon: Wilner Leigh MD; Location: [facility] COLONOSCOPY DIAGNOSTIC N/A 04/07/2018 Laterality: N/A; Surgeon: Wilner Leigh MD; Location: [facility] KNEE REPLACEMENT Right 05/2015 done at [place]--CC ARTHROPLASTY KNEE TOTAL Right 04/2015 INSERTION PICC W/ PORT PUMP 2014 power port COLONOSCOPY DIAGNOSTIC 2007 SALPINGO-OOPHORECTOMY OPEN N/A 1983 APPENDECTOMY OPEN 1983 TONSILLECTOMY ADENOIDECTOMY 1967 EGD DIAGNOSTIC 10 months ago OTHER SURGICAL Watchman Device -placed 11/24/2023 Social History Socioeconomic History Marital status: Occupational History Employer: RETIRED Tobacco Use Smoking status: Former Current packs/day: 0.00 Average packs/day: 0.8 packs/day for 35.0 years (26.3 ttl pk-yrs) Types: Cigarettes Start date: 04/23/1978 Quit date: 04/23/2013 Years since quittin.6 Smokeless tobacco: Never Vaping Use Vaping status: Never Used Substance and Sexual Activity Alcohol use: Yes Alcohol/week: 3.0 standard drinks of alcohol Types: 3 Cans of beer per week Comment: Hx ETOH abuse Drug use: Never Sexual activity: Not Currently Partners: Male control/protection: Menopause Other Topics Concern Domestic Violence No Social Drivers of Health Financial Resource Strain: Low Risk (11/10/2022) [facility] Financial Resource Strain (CARDIA) Difficulty of Paying Living Expenses: Not hard at all Food Insecurity: No Food Insecurity (11/12/2024) Hunger Vital Sign Worried About Running Out of Food in the Last Year: Never true Ran Out of Food in the Last Year: Never true Transportation Needs: No Transportation Needs (11/12/2024) PRAPARE - Transportation Lack of Transportation (Medical): No Lack of Transportation (Non-Medical): No Personal Safety: Not At Risk (11/12/2024) Humiliation, Afraid, Rape, and Kick questionnaire Fear of Current or Ex-Partner: No Emotionally Abused: No Physically Abused: No Sexually Abused: No Housing Stability: Low Risk (11/12/2024) Housing Stability Vital Sign Unable to Pay for Housing in the Last Year: No Number of Times Moved in the Last Year: 0 Homeless in the Last Year: No Current Outpatient Medications: Acetaminophen 325 MG tablet, Take 2 tablets by mouth every 6 hours as needed for Mild Pain., Disp: 50 tablet, Rfl: 1 Albuterol (Ventolin HFA) 108 (90 Base) MCG/ACT Aero Soln inhaler, Inhale 2 puffs every 6 hours as needed for Wheezing., Disp: 18 g, Rfl: 0 Allopurinol 100 MG tablet, Take 1 tablet by mouth daily., Disp: 90 tablet, Rfl: [address] Aspir[address] tablet, Take 1 tab twice a day for 30 days. This medication is for blood clot prevention., Disp: 60 tablet, Rfl: 0 buPROPion (Wellbutrin XL) 300 MG tablet XL, Take 1 tablet by mouth every morning before breakfast. Cancel previous refills, Disp: 90 tablet, Rfl: 0 carveDILOL (Coreg) 12.5 MG tablet, Take 1 tablet by mouth 2 times daily with meals. Cancel previousrefills, Disp: 180 tablet, Rfl: 0 Celecoxib 100 MG capsule, Take 1 capsule by mouth 2 times daily., Disp: 60 capsule, Rfl: 0 Cetirizine 10 MG tablet, Take 1 tablet by mouth daily. OTC, Disp: , Rfl: cyanocobalamin 1000 MCG tablet, Take 1 tablet by mouth daily. Chew 1 tab q daily. Cancel previous refills, Disp: 90 tablet, Rfl: 0 Escitalopram (Lexapro) 10 MG tablet, Take 1 tablet by mouth daily. Cancel previous refills, Disp: 90 tablet, Rfl: 0 Evolocumab (Repatha SureClick) 140 MG/ML Solution Auto-injector injection, Inject 1 mL under the skin every 14 days. SATURDAYS, Disp: 6 mL, Rfl: 3 fenofibrate 160 MG tablet, Take 1 tablet by mouth daily. Cancel previous refills, Disp: 90 tablet, Rfl: 0 fluticasone (Flonase Allergy Relief) 50 MCG/ACT Suspension nasal spray, 2 sprays by Nasal route daily as needed. OTC, Disp: , Rfl: Folic acid 1 MG tablet, Take 1 tablet by mouth daily. Cancel previous refills, Disp: 90 tablet, Rfl: 0 Lisinopril 5 MG tablet, Take 1 tablet by mouth daily. Cancel previous refills, Disp: 90 tablet, Rfl: 0 magnesium oxide 400 (240 Mg) MG, Take 1 tablet by mouth 2 times daily with meals., Disp: , Rfl: Pantoprazole (Protonix) [address] tablet DR, Take 1 tablet by mouth 2 times daily (take before meals). Cancel previous refills, Disp: 180 tablet, Rfl: 0 therapeutic multivitamin-minerals tablet, Take 1 tablet by mouth at bedtime., Disp: 30 tablet, Rfl:0 traZODone 100 MG tablet, Take 1 tablet by mouth at bedtime. Cancel previous refills, Disp: 90 tablet, Rfl: 0 triamterene-hydrochlorothiazide (Dyazide) 37.5-25 MG per capsule, Take 1 capsule by mouth daily. Cancel previous refills, Disp: 90 capsule, Rfl: 0 Amoxicillin 500 MG capsule, Take 4 capsules 1 hour before procedure (Patient not taking: Reported on 12/25/2024), Disp: 8 capsule, Rfl: 1 Docusate 100 MG capsule, Take 1 capsule by mouth 2 times daily. (Patient not taking: Reported on 12/25/2024), Disp: 60 capsule, Rfl: 0 hydroCODone-acetaminophen 5-325 MG tablet, Take 1-2 tablets by mouth every 8 hours as needed for Severe Pain for up to 7 days. Do not take over 4000mg acetaminophen daily., Disp: 20 tablet, Rfl: 0 naloxone 4 MG/0.1ML, 1 spray by Nasal route once for 1 dose. [place] into the nose as directed. Call 911. If no response in 2 minutes use a new nasal spray in other nostril. Repeat until help arrives.,Disp: 1 Each, Rfl: 0 oxyCODONE 5 MG tablet, Take 1-2 tabs po q 4-6 hours prn pain. Wean as tolerated., Disp: 30 tablet, Rfl: 0 Nsaids ROS: Cardiovascular-no reported chest pain no shortness of breath Respiratory-no coughing no wheezing Gastrointestinal-as per chief complaint Neurologic no reported deficits Extremities-no edema no deformity reported Physical Exam: Alert lady appears grossly stated age no obvious deformities Cardiovascular-no JVD or ectopy Respiratory-no coughing or wheezing Abdomen-nondistended Extremities-no edema no deformity Neurologic-grossly intact Assessment: Persistent vomiting distal esophageal stoppage sensation Possible esophageal dysmotility Negative structural evaluations to date Small hiatal hernia possible exacerbation based on above No current GI alarm symptoms reported Plan: Empiric trial of prokinetic agent metoclopramide patient to call back within 2-3 days with result of medication trial for positive or negative effects Consider esophageal manometrics if symptoms persist [facility] History of Present illness Narrative* Marina Braun - 12/05/2024 2:30 PM EST Ortho Nurse - Established Patient Intake Room#: Cast Room---Patient is here today for 3 week post op for LTKA. Patient states she is doing okay but is having so muscle pain in the thigh, pain in the back of the knee and down in the calf muscle. States the pain started Tuesday evening. States she missed her PT appointment yesterday (12/04/24) due to having too much pain. However no complaints of pain in the knee. She is taking tylenol for pain. Incision looks good, no drainage or redness. Presents in office using a walker. States she is using the walker only when leaving the house. States she is not wearing her SAJI's but I did advise her to wear those. The only concerns she has at this time is the pain in the thigh, knee and calf. Dental antibiotic sent in She rates her pain a 5/10. Date: 12/05/2024 2:28 PM Patient: Elena Galeano MR#: [id number] : 1960 Age: 64 y.o. Referring Physician: Shi Son Insurance: Payor: MEDICARE / Plan: MEDICARE A AND B / Product Type: *No Product type* / Chief Complaint Patient presents with Left Knee - Post Op Visit There were no vitals taken for this visit. Pain 1. Are you having pain? 2. On a scale from 1-10: Recent Labs Lab Results Component Value Date CRP 14.5 (H) 08/04/2023 Lab Results Component Value Date SEDRATE 16 08/04/2023 Lab Results Component Value Date WBC 9.6 11/13/2024 HGB 10.6 (L) 11/13/2024 HCT 31.4 (L) 11/13/2024 PLATELET 159 11/13/2024 MCV 95.2 11/13/2024 History Past Medical History: Diagnosis Date Non-Hodgkin lymphoma 2011 in remission CLL (chronic lymphocytic leukemia) 2011 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 (blindness) A-fib watchman device place per [facility] Arrhythmia Arthritis ASCUS of cervix with negative high risk HPV B12 deficiency Carotid stenosis, bilateral-Right 30%, and left 60% Central retinal artery occlusion of left eye CKD stage 3a, GFR 45-59 ml/min [id number] on 09-30-2020 Depression Diffuse non-Hodgkin's lymphoma chemotherapy Folate deficiency GERD (gastroesophageal reflux disease) Gout pt denies Hiatal hernia pt denies Hyperlipidemia LDL goal <70 Hypertension Hyponatremia Iron deficiency anemia PERCY (obstructive sleep apnea) PVC's (premature ventricular contractions) Type 2 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 disease, without long-term current use of insulin Past Surgical History: Procedure Laterality Date ARTHROPLASTY KNEE TOTAL Left 11/12/2024 Laterality: Left; Surgeon: Gonsalo Blackwood MD; Location: [facility] OR ARTHRODESIS SACROILIAC JOINT MINIMALLY INVASIVE W/ TRANSFIXING DEVICE Right 05/03/2024 Laterality: Right; Surgeon: Isreal Sigala MD; Location: [facility] OR FLUOROSCOPY IN OR Right 05/03/2024 Laterality: Right; Surgeon: Isreal Sigala MD; Location: [facility] OR I&D BURSA FOOT Left 07/08/2023 Laterality: Left; Surgeon: Dawn Uriarte DPM; Location: [facility] OR INJECTION NERVE OTHER PERIPHERAL Left 12/16/2022 Laterality: Left; Surgeon: Isreal Sigala MD; Location: [facility] OR GUIDANCE FLUOROSCOPIC NEEDLE OR CATHETER PLACEMENT FOR SPINE INJECTION ADD-ON PX Left 12/16/2022 Laterality: Left; Surgeon: Isreal Sigala MD; Location: [facility] OR SUSPENSION URETHRA/URETHROVESICAL FEMALE OPEN W/ SYNTHETIC MATERIAL (SLING) Midline 08/31/2022 Laterality: Midline; Surgeon: Dariusz Rangel MD; Location: [facility] OR CYSTOURETHROSCOPY W/ DILATION BLADDER Midline 08/31/2022 Laterality: Midline; Surgeon: Dariusz Rangel MD; Location: [facility] OR COLPORRHAPHY ANTEROPOSTERIOR REPAIR CYSTOCELE & RECTOCELE Midline 08/31/2022 Laterality: Midline; Surgeon: Dariusz Rangel MD; Location: [facility] OR ARTHRODESIS SACROILIAC JOINT MINIMALLY INVASIVE W/ TRANSFIXING DEVICE Left 06/17/2022 Laterality: Left; Surgeon: Isreal Sigala MD; Location: [facility] OR GUIDANCE FLUOROSCOPIC NEEDLE OR CATHETER PLACEMENT FOR SPINE INJECTION ADD-ON PX Left 06/17/2022 Laterality: Left; Surgeon: Isreal Sigala MD; Location: [facility] OR EGD W/ DILATION BALLOON N/A 12/01/2021 Laterality: N/A; Surgeon: Indra Parrish DO; Location: [facility] SHOULDER ARTHROSCOPY Left 06/18/2021 REMOVAL CENTRAL VENOUS ACCESS DEVICE TUNNELED W/ PORT PUMP Left 09/13/2019 Laterality: Left; Surgeon: Eduadro Muñoz MD; Location: [facility] ([facility]IR) EGD W/ DILATION BALLOON N/A 06/30/2018 Laterality: N/A; Surgeon: Indra Parrish DO; Location: [facility] EGD DIAGNOSTIC N/A 04/07/2018 Laterality: N/A; Surgeon: Wilner Leigh MD; Location: [facility] COLONOSCOPY DIAGNOSTIC N/A 04/07/2018 Laterality: N/A; Surgeon: Wilner Leigh MD; Location: [facility] KNEE REPLACEMENT Right 05/2015 done at [place]--CC ARTHROPLASTY KNEE TOTAL Right 04/2015 INSERTION PICC W/ PORT PUMP 2014 power port COLONOSCOPY DIAGNOSTIC 2006 SALPINGO-OOPHORECTOMY OPEN N/A 1983 APPENDECTOMY OPEN 1983 TONSILLECTOMY ADENOIDECTOMY 1968 EGD DIAGNOSTIC 10 months ago OTHER SURGICAL Watchman Device -placed 11/24/2023 Family History: Her family history includes Anesth Problems in her sister; Arrhythmia in her father; Autism in her grandson; Breast Cancer in her maternal aunt; Cancer in her paternal aunt; Cancer- Other in her maternal uncle; Clotting Disorder in her mother; Dementia in her father; Depression in her mother; Hypertension in her mother and son; Lipid Disorder in her daughter and mother; Liver Disease in her mother; Lung Cancer in her maternal grandfather; No known problems in her daughter; Ovarian Cancer in her paternal aunt. Social History: Her reports that she quit smoking about 11 years ago. Her smoking use included cigarettes. She started smoking about 46 years ago. She has a 26.3 pack-year smoking history. She has never used smokeless tobacco. She reports current alcohol use of about 3.0 standard drinks of alcohol per week. She reports that she does not use drugs. Outpatient Medications Prior to Visit Medication Sig Dispense Refill Acetaminophen 325 MG tablet Take 2 tablets by mouth every 6 hours as needed for Mild Pain. 50 tablet 1 Albuterol (Ventolin HFA) 108 (90 Base) MCG/ACT Aero Soln inhaler Inhale 2 puffs every 6 hours as needed for Wheezing. 18 g 0 Allopurinol 100 MG tablet Take 1 tablet by mouth daily. 90 tablet 3 Aspirin (SB Low Dose ASA EC) [address] tablet Take 1 tablet by mouth daily with breakfast. OTC Aspirin [address] tablet Take 1 tab twice a day for 30 days. This medication is for blood clot prevention. 60 tablet 0 buPROPion (Wellbutrin XL) 300 MG tablet XL Take 1 tablet by mouth every morning before breakfast. Cancel previous refills 90 tablet 0 carveDILOL (Coreg) 12.5 MG tablet Take 1 tablet by mouth 2 times daily with meals. Cancel previous refills 180 tablet 0 Celecoxib 100 MG capsule Take 1 capsule by mouth 2 times daily. 60 capsule 0 Cetirizine 10 MG tablet Take 1 tablet by mouth daily. OTC cyanocobalamin 1000 MCG tablet Take 1 tablet by mouth daily. Chew 1 tab q daily. Cancel previous refills 90 tablet 0 Docusate 100 MG capsule Take 1 capsule by mouth 2 times daily. 60 capsule 0 Escitalopram (Lexapro) 10 MG tablet Take 1 tablet by mouth daily. Cancel previous refills 90 tablet0 Evolocumab (Repatha SureClick) 140 MG/ML Solution Auto-injector injection Inject 1 mL under the skin every 14 days. SATURDAYS 6 mL 3 fenofibrate 160 MG tablet Take 1 tablet by mouth daily. Cancel previous refills 90 tablet 0 fluticasone (Flonase Allergy Relief) 50 MCG/ACT Suspension nasal spray 2 sprays by Nasal route daily as needed. OTC Folic acid 1 MG tablet Take 1 tablet by mouth daily. Cancel previous refills 90 tablet 0 Lisinopril 5 MG tablet Take 1 tablet by mouth daily. Cancel previous refills 90 tablet 0 magnesium oxide 400 (240 Mg) MG Take 1 tablet by mouth 2 times daily with meals. naloxone 4 MG/0.1ML 1 spray by Nasal route once for 1 dose. [place] into the nose as directed. Call 911. If no response in 2 minutes use a new nasal spray in other nostril. Repeat until help arrives. 1Each 0 oxyCODONE 5 MG tablet Take 1-2 tabs po q 4-6 hours prn pain. Wean as tolerated. 30 tablet 0 Pantoprazole (Protonix) [address] tablet DR Take 1 tablet by mouth 2 times daily (take before meals). Cancel previous refills 180 tablet 0 therapeutic multivitamin-minerals tablet Take 1 tablet by mouth at bedtime. 30 tablet 0 traZODone 100 MG tablet Take 1 tablet by mouth at bedtime. Cancel previous refills 90 tablet 0 triamterene-hydrochlorothiazide (Dyazide) 37.5-25 MG per capsule Take 1 capsule by mouth daily. Cancel previous refills 90 capsule 0 No facility-administered medications prior to visit. Allergies: She is allergic to nsaids. * Shi Son - 12/05/2024 2:30 PM EST HPI: Elena Galeano is 3 weeks s/p left TKA. She is doing well with her recovery to date but reports is having some concerns with pain in the thigh and the calf. She reports this has been progressivelyworsening with PT. She is participating in PT in the OP setting, using ASA for DVT prophylaxis along. She reports noncompliance with compression stockings. She is using Tylenol BID for pain control. PHYSICAL EXAM: Today on examination she is Ht 1.651 m (5' 5) Wt 96.3 kg (212 lb 3.2 oz) BMI 35.31 kg/m Smoking Status Former Body mass index is 35.31 kg/m . Pain is reported as 5/10. Incision is healing wellwithout erythema, drainage, induration or evidence of dehiscence. There is moderate global knee swelling. Right calf is swollen and taut. She is complaint of pain with even slight palpation of the left calf, positive homans. She reports also tender posteriorly to the thigh. The right calf is soft and non tender. Negative Homans sign on the right. Distal neurovascular exam is intact. ROM is reported as 0-120 in physical therapy, today it is found to be 3-115. The examination is stable to varus and valgus stress. DIAGNOSTIC STUDIES/INTERPRETATION: X-rays were reviewed today and reveal Cemented total knee arthroplasty in good position and alignment unchanged from the immediate postop films. Assessment/Plan: 3 weeks postop left TKA. -Continue DVT prophylaxis as prescribed. Education provided on importance of compliance with SAIJ hose, larger size provided to patient today. We will check US today to rule out concern for clot contribution to pain in calf/thigh. Encouraged to manage swelling with elevation as able. -Dental prophylaxis was prescribed and instructions given. Pt was encouraged to delay any routine cleaning etc for minimum of three months post-op but was encouraged to manage any broken tooth, infection immediately. -We discussed return to driving and safety in doing so. -Discussed what to expect from this knee in the coming post operative time frame as well as suggestion for gradual progression of activity as I am concerned she has been doing too much too soon. -Education provided on pain management recommendations. I will send in ERx for [place] at this time. She was advised to monitor total tylenol intake with this. -Continue physical therapy- if ROM goals not obtained She knows to call the office for a follow up appointment. Unsupported elevation was reviewed to assist with extension. -We will otherwise plan for follow up at in 3 weeks to touch base on ROM and pain control unless anearlier need should arise. She knows to call sooner if any needs. All questions and concerns were addressed at this appointment and the patient expressed understanding. They were encouraged to call in to the office should any new concerns arise. All pertinent portions of the clinical technical support 1 software engineer documentation was reviewed and agree. Shi Son I have reviewed the findings of the clinical technical support 1 software engineer and agree with their assessment. Shi Son Ortho Nurse - Established Patient Intake Room#: Cast Room---Patient is here today for 3 week post op for LTKA. Patient states she is doing okay but is having so muscle pain in the thigh, pain in the back of the knee and down in the calf muscle. States the pain started Tuesday evening. States she missed her PT appointment yesterday (12/04/24) due to having too much pain. However no complaints of pain in the knee. She is taking tylenol for pain. Incision looks good, no drainage or redness. Presents in office using a walker. States she is using the walker only when leaving the house. States she is not wearing her SAJI's but I did advise her to wear those. The only concerns she has at this time is the pain in the thigh, knee and calf. Dental antibiotic sent in She rates her pain a /10. Date: 12/05/2024 2:28 PM Patient: Elena Galeano MR#: [id number] : 1960 Age: 64 y.o. Referring Physician: Shi Son Insurance: Payor: MEDICARE / Plan: MEDICARE A AND B / Product Type: *No Product type* / Chief Complaint Patient presents with Left Knee - Post Op Visit There were no vitals taken for this visit. Pain 1. Are you having pain? 2. On a scale from 1-10: Recent Labs Lab Results Component Value Date CRP 14.5 (H) 08/04/2023 Lab Results Component Value Date SEDRATE 16 08/04/2023 Lab Results Component Value Date WBC 9.6 11/13/2024 HGB 10.6 (L) 11/13/2024 HCT 31.4 (L) 11/13/2024 PLATELET 159 11/13/2024 MCV 95.2 11/13/2024 History Past Medical History: Diagnosis Date Non-Hodgkin lymphoma 2011 in remission CLL (chronic lymphocytic leukemia) 2011 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 (blindness) A-fib watchman device place per [facility] Arrhythmia Arthritis ASCUS of cervix with negative high risk HPV B12 deficiency Carotid stenosis, bilateral-Right 30%, and left 60% Central retinal artery occlusion of left eye CKD stage 3a, GFR 45-59 ml/min [id number] on 09-30-2020 Depression Diffuse non-Hodgkin's lymphoma chemotherapy Folate deficiency GERD (gastroesophageal reflux disease) Gout pt denies Hiatal hernia pt denies Hyperlipidemia LDL goal <70 Hypertension Hyponatremia Iron deficiency anemia PERCY (obstructive sleep apnea) PVC's (premature ventricular contractions) Type 2 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 disease, without long-term current use of insulin Past Surgical History: Procedure Laterality Date ARTHROPLASTY KNEE TOTAL Left 11/12/2024 Laterality: Left; Surgeon: Gonsalo Blackwood MD; Location: [facility] OR ARTHRODESIS SACROILIAC JOINT MINIMALLY INVASIVE W/ TRANSFIXING DEVICE Right 05/03/2024 Laterality: Right; Surgeon: Isreal Sigala MD; Location: [facility] OR FLUOROSCOPY IN OR Right 05/03/2024 Laterality: Right; Surgeon: Isreal Sigala MD; Location: [facility] OR I&D BURSA FOOT Left 07/08/2023 Laterality: Left; Surgeon: Dawn Uriarte DPM; Location: [facility] OR INJECTION NERVE OTHER PERIPHERAL Left 12/16/2022 Laterality: Left; Surgeon: Isreal Sigala MD; Location: [facility] OR GUIDANCE FLUOROSCOPIC NEEDLE OR CATHETER PLACEMENT FOR SPINE INJECTION ADD-ON PX Left 12/16/2022 Laterality: Left; Surgeon: Isreal Sigala MD; Location: [facility] OR SUSPENSION URETHRA/URETHROVESICAL FEMALE OPEN W/ SYNTHETIC MATERIAL (SLING) Midline 08/31/2022 Laterality: Midline; Surgeon: Dariusz Rangel MD; Location: [facility] OR CYSTOURETHROSCOPY W/ DILATION BLADDER Midline 08/31/2022 Laterality: Midline; Surgeon: Dariusz Rangel MD; Location: [facility] OR COLPORRHAPHY ANTEROPOSTERIOR REPAIR CYSTOCELE & RECTOCELE Midline 08/31/2022 Laterality: Midline; Surgeon: Dariusz Rangel MD; Location: [facility] OR ARTHRODESIS SACROILIAC JOINT MINIMALLY INVASIVE W/ TRANSFIXING DEVICE Left 06/17/2022 Laterality: Left; Surgeon: Isreal Sigala MD; Location: [facility] OR GUIDANCE FLUOROSCOPIC NEEDLE OR CATHETER PLACEMENT FOR SPINE INJECTION ADD-ON PX Left 06/17/2022 Laterality: Left; Surgeon: Isreal Sigala MD; Location: [facility] OR EGD W/ DILATION BALLOON N/A 12/01/2021 Laterality: N/A; Surgeon: Indra Parrish DO; Location: [facility] ENDOSCOPY SHOULDER ARTHROSCOPY Left 06/18/2021 REMOVAL CENTRAL VENOUS ACCESS DEVICE TUNNELED W/ PORT PUMP Left 09/13/2019 Laterality: Left; Surgeon: Eduardo Muñoz MD; Location: [facility] INTERVENTIONAL RADIOLOGY (VIR) EGD W/ DILATION BALLOON N/A 06/30/2018 Laterality: N/A; Surgeon: Indra Parrish DO; Location: [facility]COPY EGD DIAGNOSTIC N/A 04/07/2018 Laterality: N/A; Surgeon: Wilner eLigh MD; Location: [facility] ENDOSCOPY COLONOSCOPY DIAGNOSTIC N/A 04/07/2018 Laterality: N/A; Surgeon: Wilner Leigh MD; Location: [facility] ENDOSCOPY KNEE REPLACEMENT Right 05/2015 done at [place]--CC ARTHROPLASTY KNEE TOTAL Right 04/2015 INSERTION PICC W/ PORT PUMP 2014 power port COLONOSCOPY DIAGNOSTIC 2006 SALPINGO-OOPHORECTOMY OPEN N/A 1983 APPENDECTOMY OPEN 1983 TONSILLECTOMY ADENOIDECTOMY 1967 EGD DIAGNOSTIC 10 months ago OTHER SURGICAL Watchman Device -placed 11/24/2023 Family History: Her family history includes Anesth Problems in her sister; Arrhythmia in her father; Autism in her grandson; Breast Cancer in her maternal aunt; Cancer in her paternal aunt; Cancer- Other in her maternal uncle; Clotting Disorder in her mother; Dementia in her father; Depression in her mother; Hypertension in her mother and son; Lipid Disorder in her daughter and mother; Liver Disease in her mother; Lung Cancer in her maternal grandfather; No known problems in her daughter; Ovarian Cancer in her paternal aunt. Social History: Her reports that she quit smoking about 11 years ago. Her smoking use included cigarettes. She started smoking about 46 years ago. She has a 26.3 pack-year smoking history. She has never used smokeless tobacco. She reports current alcohol use of about 3.0 standard drinks of alcohol per week. She reports that she does not use drugs. Outpatient Medications Prior to Visit Medication Sig Dispense Refill Acetaminophen 325 MG tablet Take 2 tablets by mouth every 6 hours as needed for Mild Pain. 50 tablet 1 Albuterol (Ventolin HFA) 108 (90 Base) MCG/ACT Aero Soln inhaler Inhale 2 puffs every 6 hours as needed for Wheezing. 18 g 0 Allopurinol 100 MG tablet Take 1 tablet by mouth daily. 90 tablet 3 Aspirin (SB Low Dose ASA EC) [address] tablet Take 1 tablet by mouth daily with breakfast. OTC Aspirin [address] tablet Take 1 tab twice a day for 30 days. This medication is for blood clot prevention. 60 tablet 0 buPROPion (Wellbutrin XL) 300 MG tablet XL Take 1 tablet by mouth every morning before breakfast. Cancel previous refills 90 tablet 0 carveDILOL (Coreg) 12.5 MG tablet Take 1 tablet by mouth 2 times daily with meals. Cancel previous refills 180 tablet 0 Celecoxib 100 MG capsule Take 1 capsule by mouth 2 times daily. 60 capsule 0 Cetirizine 10 MG tablet Take 1 tablet by mouth daily. OTC cyanocobalamin 1000 MCG tablet Take 1 tablet by mouth daily. Chew 1 tab q daily. Cancel previous refills 90 tablet 0 Docusate 100 MG capsule Take 1 capsule by mouth 2 times daily. 60 capsule 0 Escitalopram (Lexapro) 10 MG tablet Take 1 tablet by mouth daily. Cancel previous refills 90 tablet0 Evolocumab (Repatha SureClick) 140 MG/ML Solution Auto-injector injection Inject 1 mL under the skin every 14 days. SATURDAYS 6 mL 3 fenofibrate 160 MG tablet Take 1 tablet by mouth daily. Cancel previous refills 90 tablet 0 fluticasone (Flonase Allergy Relief) 50 MCG/ACT Suspension nasal spray 2 sprays by Nasal route daily as needed. OTC Folic acid 1 MG tablet Take 1 tablet by mouth daily. Cancel previous refills 90 tablet 0 Lisinopril 5 MG tablet Take 1 tablet by mouth daily. Cancel previous refills 90 tablet 0 magnesium oxide 400 (240 Mg) MG Take 1 tablet by mouth 2 times daily with meals. naloxone 4 MG/0.1ML 1 spray by Nasal route once for 1 dose. [place] into the nose as directed. Call 911. If no response in 2 minutes use a new nasal spray in other nostril. Repeat until help arrives. 1Each 0 oxyCODONE 5 MG tablet Take 1-2 tabs po q 4-6 hours prn pain. Wean as tolerated. 30 tablet 0 Pantoprazole (Protonix) [address] tablet DR Take 1 tablet by mouth 2 times daily (take before meals). Cancel previous refills 180 tablet 0 therapeutic multivitamin-minerals tablet Take 1 tablet by mouth at bedtime. 30 tablet 0 traZODone 100 MG tablet Take 1 tablet by mouth at bedtime. Cancel previous refills 90 tablet 0 triamterene-hydrochlorothiazide (Dyazide) 37.5-25 MG per capsule Take 1 capsule by mouth daily. Cancel previous refills 90 capsule 0 No facility-administered medications prior to visit. Allergies: She is allergic to nsaids. [facility] Miscellaneous Notes* Nursing Notes - Annalee Lindsay RN - 11/13/2024 12:45 PM EST AVS, written prescriptions, new prescription education, 6 ice packs, box of ABD pads, extra saji hose, CUCA wrap, incentive spirometer, and on-Q ball teaching and supplies all given by RN. All questions addressed and pt stated understanding. Assessment unchanged and no complaints. IV intact when removed per policy. Telemetry removed and returned. Patient [facility]. * Plan of Care - Annalee Lindsay RN - 11/13/2024 10:21 AM EST Problem: Adult Inpatient Plan of Care Goal: Plan of Care Review Outcome: Adequate for Discharge Goal: Patient-Specific Goal (Individualized) Outcome: Adequate for Discharge Goal: Absence of Hospital-Acquired Illness or Injury Outcome: Adequate for Discharge Goal: Optimal Comfort and Wellbeing Outcome: Adequate for Discharge Goal: Readiness for Transition of Care Outcome: Adequate for Discharge Problem: Skin Injury Risk Increased Goal: Skin Health and Integrity Outcome: Adequate for Discharge Problem: Fall Injury Risk Goal: Fall/Trauma/Injury Risk: Absence of Trauma/Injury/Falls Description: Patient will demonstrate the desired outcomes. Outcome: Adequate for Discharge Goal: Knowledge of risk factors/behavior modification Description: Knowledge of risk factors/behavior modification for fall/injury prevention Outcome: Adequate for Discharge * Therapy Note - Dawn Soria PTA - 11/13/2024 9:16 AM EST Physical Therapy Treatment Date:11/13/24 Time in:824 Time out:919 Total treatment time:55 Precautions:fall, WBAT L LE Subjective:pt approached supine in bed, agreeable to participate in therapy. Orientation: A and O x4 Pain:c/o 3/10 thigh pain Current Functional Status: ROM:supine L knee flexion aarom 0-112 degrees Bed Mobility:SBA Transfers:CGA, FWW Gait:fww, CGA 135 feet x2 trials, step to gait pattern Balance:good PT Treatment Provided:supine to sit transfer completed requiring SBA for safety. Cues provided for improved sequencing. Sit to stand transfers completed to FWW requiring CGA for safety from multiple surfaces including recliner, EOB, and EOM. Cues provided for improved set up, technique. Instructed pt in car transfer requirng SBA to complete, cues provided fro improved set up and technique. Gait training completed with fww, CGA, and step to gait pattern for 135 feet x2 trials. Cues provided for imporved heel strike, sequencing, foot clearance, and tulio. Stair training completed ascending/descending 1 step requiring single UE support at L HR to simulate home environment. Instructed pt in seated and supine TE to increase strength and endurance. Exercises completed for 15 rpes each and include df/pf, qs, saq, laq, heel slides, slr, and glute sets. Cues provided for improved technique, rom. Pt educated to elevate LE and ice regularly to decrease symptoms of paina nd swelling. Pt educated to get up hourly when home and to walk for HEP. Pt left seated in recliner with all needs met and within reach, LE elevated with ice donned. Plan for next treatment:continue with strengthening, ROM, transfers, and mobility to improve functional independence. * Plan of Care - Annalee Lindsay RN - 11/12/2024 4:24 PM EST Problem: Fall Injury Risk Goal: Fall/Trauma/Injury Risk: Absence of Trauma/Injury/Falls Description: Patient will demonstrate the desired outcomes. Outcome: Progressing Goal: Knowledge of risk factors/behavior modification Description: Knowledge of risk factors/behavior modification for fall/injury prevention Outcome: Progressing Intervention: [facility] Fall Precuations Flowsheets (Taken 11/12/2024 1621) [facility] Fall Precautions: yes * Nursing Notes - Annalee Lindsay RN - 11/12/2024 4:23 PM EST No change noted from previous assessment by this RN unless otherwise detailed in coordinating flow sheets. Patient denies any needs at this time. * Nursing Notes - Annalee Lindsay RN - 11/12/2024 2:25 PM EST Patient returned from recovery. Patient's vitals and assessment stable at this time. Patient drowsyand in pain. Patient medicated per DEC. Patient denies any other needs at this time. * Nursing Notes - Annalee Lindsay RN - 11/12/2024 10:20 AM EST Pt arrived to unit and oriented to unit policies, tv, phone, call light, bed and room. Pt assessed and stable at this time. Pre-op orders and checklist completed. Patient denies any needs at this time. On admission to [facility] 3RD FLOOR, from home a dual RN initial assessment of skin condition was performed by Annalee Lindsay RN and Rosalee Jean RN. Skin Assessment: Skin within defined limits:Yes Chinedu Score: 19 LDA Added:No Annalee Lindsay RN * Nursing Notes - Myah Rivera RN - 10/15/2024 10:30 AM EST 10/15/24 1030 Referral Information Arrived From home or self-care Information Source Information Source patient Contact Information This [employer] Bpm Developer is Primary Security Sme/SW Yes Security Sme Name Myah Rivera RNcoupon manifest clerk's Phone Number [phone] Living Environment Lives With spouse ( Ashu) Living Arrangement and Set Up house (one level living, one step to enter the home.) Provides Primary Care For no one Primary Care Provided By self Support System Immediate family;Extended family;Friends Able to Return to Prior Arrangements yes Functional Status Patient's Functional Status Prior To This Admission? Independent Concerns With Patient Being Able To Care For Themselves At Discharge? Has Assistance (Friend, Family, Skilled Provider) Can Support Person Meet The Care Needs Of The Patient? Yes Employment/Financial Employed? 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 Patient states the plan is to discharge home with family/friends assistance and OP therapy with [facility]. Patient has a wheeled walker. Patient denies any other questions or needs at this time. CM to continue to follow and assist with discharge plans. documented in this encounterProm[facility] Nurse Note* Nursing Notes - Annalee Lindsay RN - 11/13/2024 12:45 PM EST AVS, written prescriptions, new prescription education, 6 ice packs, box of ABD pads, extra saji hose, CUCA wrap, incentive spirometer, and on-Q ball teaching and supplies all given by RN. All questions addressed and pt stated understanding. Assessment unchanged and no complaints. IV intact when removed per policy. Telemetry removed and returned. [facility] [id number] Plan of care note* Plan of Care - Annalee Lindsay RN - 11/13/2024 10:21 AM EST Problem: Adult Inpatient Plan of Care Goal: Plan of Care Review Outcome: Adequate for Discharge Goal: Patient-Specific Goal (Individualized) Outcome: Adequate for Discharge Goal: Absence of Hospital-Acquired Illness or Injury Outcome: Adequate for Discharge Goal: Optimal Comfort and Wellbeing Outcome: Adequate for Discharge Goal: Readiness for Transition of Care Outcome: Adequate for Discharge Problem: Skin Injury Risk Increased Goal: Skin Health and Integrity Outcome: Adequate for Discharge Problem: Fall Injury Risk Goal: Fall/Trauma/Injury Risk: Absence of Trauma/Injury/Falls Description: Patient will demonstrate the desired outcomes. Outcome: Adequate for Discharge Goal: Knowledge of risk factors/behavior modification Description: Knowledge of risk factors/behavior modification for fall/injury prevention Outcome: Adequate for Discharge [facility] [employer] [id number] Progress note* Therapy Note - Dawn Soria PTA - 11/13/2024 9:16 AM EST Physical Therapy Treatment Date:11/13/24 Time in:824 Time out:919 Total treatment time:55 Precautions:fall, WBAT L LE Subjective:pt approached supine in bed, agreeable to participate in therapy. Orientation: A and O x4 Pain:c/o 3/10 thigh pain Current Functional Status: ROM:supine L knee flexion aarom 0-112 degrees Bed Mobility:SBA Transfers:CGA, FWW Gait:fww, CGA 135 feet x2 trials, step to gait pattern Balance:good PT Treatment Provided:supine to sit transfer completed requiring SBA for safety. Cues provided for improved sequencing. Sit to stand transfers completed to FWW requiring CGA for safety from multiple surfaces including recliner, EOB, and EOM. Cues provided for improved set up, technique. Instructed pt in car transfer requirng SBA to complete, cues provided fro improved set up and technique. Gait training completed with fww, CGA, and step to gait pattern for 135 feet x2 trials. Cues provided for imporved heel strike, sequencing, foot clearance, and tulio. Stair training completed ascending/descending 1 step requiring single UE support at L HR to simulate home environment. Instructed pt in seated and supine TE to increase strength and endurance. Exercises completed for 15 rpes each and include df/pf, qs, saq, laq, heel slides, slr, and glute sets. Cues provided for improved technique, rom. Pt educated to elevate LE and ice regularly to decrease symptoms of paina nd swelling. Pt educated to get up hourly when home and to walk for HEP. Pt left seated in recliner with all needs met and within reach, LE elevated with ice donned. Plan for next treatment:continue with strengthening, ROM, transfers, and mobility to improve functional independence. [facility] [employer] [id number] History of Present illness Narrative* Myah Rivera RN - 11/13/2024 8:30 AM EST Met with patient as follow-up on this anticipated discharge day. States the plan remains to discharge home with family/friends assistance [facility] week follow-up scheduled for 12/05 230p. Reminded patient of follow-up call tomorrow, denies additional needs at this time. * Dragan Sexton RD - 11/13/2024 7:36 AM EST NUTRITION ASSESSMENT: POST-OP ORTHOPEDIC Nutrition Assessment Will order Ensure Max @ 10:00. Pt would benefit from the additional kcal, protein, vitamins, and minerals to help meet increased nutrition needs based on recent orthopedic surgery with Dr. Blackwood. Recommend to continue supplementation at home for 2-4 weeks after surgery. Anthropometrics: Ht Readings from Last 1 Encounters: 11/12/24 1.651 m (5' 5) Wt Readings from Last 5 Encounters: 11/12/24 96 kg (211 lb 11.2 oz) 11/01/24 97.9 kg (215 lb 14.4 oz) 10/31/24 98.6 kg (217 lb 6.4 oz) 10/31/24 97.3 kg (214 lb 8 oz) 10/29/24 97.5 kg (215 lb) [place] body weight: 57 kg (125 lb 10.6 oz) Adjusted ideal body weight: 72.6 kg (160 lb 1.2 oz) Body mass index is 35.23 kg/m . Nutrition Intake: Current Diet Orders Procedures DIET CARB CONTROLLED Ensure Max at 10:00 Standing Status: Standing Number of Occurrences: 1 Allergies Allergen Reactions Nsaids Has CKD-3a, and Anemia Labs: Lab Results Component Value Date GLUCOSE 165 (H) 11/13/2024 GLUCOSE 151 (H) 10/15/2024 GLUCOSE 125 (H) 09/19/2024 HGBA1C 5.9 10/15/2024 SODIUM 134 (L) 11/13/2024 POTASSIUM 3.8 11/13/2024 MAGNESIUM 1.6 07/16/2024 PHOSPHORUS 3.0 10/22/2023 CALCIUM 8.5 11/13/2024 ALBUMIN 4.3 10/15/2024 TP 6.8 10/15/2024 BUN 8 11/13/2024 CREATSERUM 0.70 11/13/2024 AST 51 (H) 10/15/2024 BILIRUBIN negative 05/06/2022 ALT 70 (H) 10/15/2024 CRP 14.5 (H) 08/04/2023 HGB 10.6 (L) 11/13/2024 HCT 31.4 (L) 11/13/2024 IRON 111 07/09/2024 WBC 9.6 11/13/2024 RBC 3.30 (L) 11/13/2024 B12 956 (H) 07/09/2024 [id number] 37.6 07/09/2024 FOLATE >20.0 (H) 07/09/2024 PMH & PSH: Past Medical History: Diagnosis Date A-fib watchman device place per [facility] Arrhythmia Arthritis ASCUS of cervix with negative high risk HPV B12 deficiency Carotid stenosis, bilateral-Right 30%, and left 60% Central retinal artery occlusion of left eye CKD stage 3a, GFR 45-59 ml/min CLL (chronic lymphocytic leukemia) 2011 [id number] on 09-30-2020 Depression Diffuse non-Hodgkin's lymphoma chemotherapy Folate deficiency GERD (gastroesophageal reflux disease) Gout pt denies Hiatal hernia pt denies Hyperlipidemia LDL goal <70 Hypertension Hyponatremia Iron deficiency anemia Non-Hodgkin lymphoma 2011 in remission PERCY (obstructive sleep apnea) PVC's (premature ventricular contractions) 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 (blindness) Type 2 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 disease, without long-term current use of insulin Past Surgical History: Procedure Laterality Date ARTHRODESIS SACROILIAC JOINT MINIMALLY INVASIVE W/ TRANSFIXING DEVICE Right 05/03/2024 Laterality: Right; Surgeon: Isreal Sigala MD; Location: [facility] OR FLUOROSCOPY IN OR Right 05/03/2024 Laterality: Right; Surgeon: Isreal Sigaal MD; Location: [facility] OR I&D BURSA FOOT Left 07/08/2023 Laterality: Left; Surgeon: Dawn Uriarte DPM; Location: [facility] OR INJECTION NERVE OTHER PERIPHERAL Left 12/16/2022 Laterality: Left; Surgeon: Isreal Sigala MD; Location: [facility] OR GUIDANCE FLUOROSCOPIC NEEDLE OR CATHETER PLACEMENT FOR SPINE INJECTION ADD-ON PX Left 12/16/2022 Laterality: Left; Surgeon: Isreal Sigala MD; Location: [facility] OR SUSPENSION URETHRA/URETHROVESICAL FEMALE OPEN W/ SYNTHETIC MATERIAL (SLING) Midline 08/31/2022 Laterality: Midline; Surgeon: Dariusz Rangel MD; Location: [facility] OR CYSTOURETHROSCOPY W/ DILATION BLADDER Midline 08/31/2022 Laterality: Midline; Surgeon: Dariusz Rangel MD; Location: [facility] OR COLPORRHAPHY ANTEROPOSTERIOR REPAIR CYSTOCELE & RECTOCELE Midline 08/31/2022 Laterality: Midline; Surgeon: Dariusz Rangel MD; Location: [facility] OR ARTHRODESIS SACROILIAC JOINT MINIMALLY INVASIVE W/ TRANSFIXING DEVICE Left 06/17/2022 Laterality: Left; Surgeon: Isreal Sigala MD; Location: [facility] OR GUIDANCE FLUOROSCOPIC NEEDLE OR CATHETER PLACEMENT FOR SPINE INJECTION ADD-ON PX Left 06/17/2022 Laterality: Left; Surgeon: Isreal Sigala MD; Location: [facility] OR EGD W/ DILATION BALLOON N/A 12/01/2021 Laterality: N/A; Surgeon: Indra Parrish DO; Location: [facility] ENDOSCOPY SHOULDER ARTHROSCOPY Left 06/18/2021 REMOVAL CENTRAL VENOUS ACCESS DEVICE TUNNELED W/ PORT PUMP Left 09/13/2019 Laterality: Left; Surgeon: Eduardo Muñoz MD; Location: [facility] INTERVENT[facility] (VIR) EGD W/ DILATION BALLOON N/A 06/30/2018 Laterality: N/A; Surgeon: Indra Parrish DO; Location: [facility] EGD DIAGNOSTIC N/A 04/07/2018 Laterality: N/A; Surgeon: Wilner Leigh MD; Location: [facility] ENDOSCOPY COLONOSCOPY DIAGNOSTIC N/A 04/07/2018 Laterality: N/A; Surgeon: Wilner Leigh MD; Location: [facility] KNEE REPLACEMENT Right 05/2015 done at [place]--CC ARTHROPLASTY KNEE TOTAL Right 04/2015 INSERTION PICC W/ PORT PUMP 2014 power port COLONOSCOPY DIAGNOSTIC 2007 SALPINGO-OOPHORECTOMY OPEN N/A 1983 APPENDECTOMY OPEN 1983 TONSILLECTOMY ADENOIDECTOMY 1968 EGD DIAGNOSTIC 10 months ago OTHER SURGICAL Watchman Device -placed 11/24/2023 Nutrition Diagnosis NI-5.1 Increased protein needs related to increased demand for protein as evidenced by s/p orthopedic surgery. Interventions Order Ensure Max @ 10:00 Diet order: Carb Controlled Monitoring & Evaluation PO intake, labs, weight, ONS intake, and medical condition Low nutritional risk. Reassess in 7 days. Available by consult. KINDRA Thorne Registered Dietitian, Licensed Dietitian 11/13/24 * Kae Soria, PT - 11/12/2024 5:17 PM EST Physical Therapy Inpatient Initial Assessment Date: 11/12/24 Time in: 16:00 Time out: 16:26 Total treatment time: 26 Diagnosis: OA of the L knee Surgery: L TKA with on-q Past Medical History: Past Medical History: Diagnosis Date A-fib watchman device place per [facility] Arrhythmia Arthritis ASCUS of cervix with negative high risk HPV B12 deficiency Carotid stenosis, bilateral-Right 30%, and left 60% Central retinal artery occlusion of left eye CKD stage 3a, GFR 45-59 ml/min CLL (chronic lymphocytic leukemia) 2012 [id number] on 09-30-2020 Depression Diffuse non-Hodgkin's lymphoma chemotherapy Folate deficiency GERD (gastroesophageal reflux disease) Gout pt denies Hiatal hernia pt denies Hyperlipidemia LDL goal <70 Hypertension Hyponatremia Iron deficiency anemia Non-Hodgkin lymphoma 2011 in remission PERCY (obstructive sleep apnea) PVC's (premature ventricular contractions) 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 (blindness) Type 2 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 disease, without long-term current use of insulin Past Surgical History: Past Surgical History: Procedure Laterality Date ARTHRODESIS SACROILIAC JOINT MINIMALLY INVASIVE W/ TRANSFIXING DEVICE Right 05/03/2024 Laterality: Right; Surgeon: Isreal Sigala MD; Location: [facility] OR FLUOROSCOPY IN OR Right 05/03/2024 Laterality: Right; Surgeon: Isreal Sigala MD; Location: [facility] OR I&D BURSA FOOT Left 07/08/2023 Laterality: Left; Surgeon: Dawn Uriarte DPM; Location: [facility] OR INJECTION NERVE OTHER PERIPHERAL Left 12/16/2022 Laterality: Left; Surgeon: Isreal Sigala MD; Location: [facility] OR GUIDANCE FLUOROSCOPIC NEEDLE OR CATHETER PLACEMENT FOR SPINE INJECTION ADD-ON PX Left 12/16/2022 Laterality: Left; Surgeon: Isreal Sigala MD; Location: [facility] OR SUSPENSION URETHRA/URETHROVESICAL FEMALE OPEN W/ SYNTHETIC MATERIAL (SLING) Midline 08/31/2022 Laterality: Midline; Surgeon: Dariusz Rangel MD; Location: [facility] OR CYSTOURETHROSCOPY W/ DILATION BLADDER Midline 08/31/2022 Laterality: Midline; Surgeon: Dariusz Rangel MD; Location: [facility] OR COLPORRHAPHY ANTEROPOSTERIOR REPAIR CYSTOCELE & RECTOCELE Midline 08/31/2022 Laterality: Midline; Surgeon: Dariusz Rangel MD; Location: [facility] OR ARTHRODESIS SACROILIAC JOINT MINIMALLY INVASIVE W/ TRANSFIXING DEVICE Left 06/17/2022 Laterality: Left; Surgeon: Isreal Sigala MD; Location: [facility] OR GUIDANCE FLUOROSCOPIC NEEDLE OR CATHETER PLACEMENT FOR SPINE INJECTION ADD-ON PX Left 06/17/2022 Laterality: Left; Surgeon: Isreal Sigala MD; Location: [facility] OR EGD W/ DILATION BALLOON N/A 12/01/2021 Laterality: N/A; Surgeon: Indra Parrish DO; Location: [facility] ENDOSCOPY SHOULDER ARTHROSCOPY Left 06/18/2021 REMOVAL CENTRAL VENOUS ACCESS DEVICE TUNNELED W/ PORT PUMP Left 09/13/2019 Laterality: Left; Surgeon: Eduardo Muñoz MD; Location: [facility] (VIR) EGD W/ DILATION BALLOON N/A 06/30/2018 Laterality: N/A; Surgeon: Indra Parrish DO; Location: [facility]COPY EGD DIAGNOSTIC N/A 04/07/2018 Laterality: N/A; Surgeon: Wilner Leigh MD; Location: [facility]COPY COLONOSCOPY DIAGNOSTIC N/A 04/07/2018 Laterality: N/A; Surgeon: Wilner Leigh MD; Location: [facility] ENDOSCOPY KNEE REPLACEMENT Right 05/2015 done at [place]--CC ARTHROPLASTY KNEE TOTAL Right 04/2015 INSERTION PICC W/ PORT PUMP 2015 power port COLONOSCOPY DIAGNOSTIC 2006 SALPINGO-OOPHORECTOMY OPEN N/A 1983 APPENDECTOMY OPEN 1983 TONSILLECTOMY ADENOIDECTOMY 1968 EGD DIAGNOSTIC 10 months ago OTHER SURGICAL Watchman Device -placed 11/24/2023 Precautions: Fall, WBAT on the L LE Pre-Admission Living Environment: Patient lives: with spouse Home environment: one level home Steps in home: 0 Steps to enter home: 1 Pre-Admission Functional Status: Pt is independent with mobility without an AD Equipment in Home: FWW Subjective: Pt is doing well post op and was agreeable to PT evaluation Pain: 3/10, L knee Orientation: Oriented x4, alert, follows commands well, safety awareness intact Current Functional Status: ROM: L knee ROM 0-98 degrees Strength: L knee 4/5 Bed Mobility: Min A Transfers: CGA using FWW Gait: CGA using FWW, 20ft Balance: Seated: Good Standing: Fair- Sensation: WFL PT Treatment Provided: Pt performed glut sets, quad sets, heel slides, SAQ, SLR, and ankle pumps x10 on operative side. Pt educated on sequencing for transfers and gait using FWW, and on heel-toe gait pattern. Pt using a step to pattern and required cues for mechanics. Assessment: Pt is a(n) 64 y.o. female s/p L TKA with on-q. Pt is doing well post op but does have minimal complaints of pain. Pt has good strength but decreased ROM in the L knee with a firm end feelinto flexion. Pt is ambulating well but does require cues for mechanics. Pt is expected to continueto improve and should be safe to return home. Discharge Recommendations: Pt to return home and go to outpatient PT services. Equipment Recommendations at Discharge: None PT Frequency: PT Therapy Frequency: (P) 7 times a week PT Interventions: Balance, bed mobility, endurance, gait, joint mobilizations, ROM, strengthening, stretching, transfers Rehab Potential: Good Plan for next treatment: Next visit progress mobility and ROM, practice car transfers and steps, and review/perform HEP. Physical Therapy Goals: 1. Patient will perform all transfers with mod I to ensure safety at discharge. 2. Pt will ambulate 200 ft with FWW and mod I to ensure safety with household ambulation. 3. Pt will increase surgical knee ROM to 0-105 degrees. 4. Pt will perform a modified car transfer with SB assist to ensure patient will be safe when leaving home. 5. Pt will ambulate up and down 4 steps with rail and SB assist to ensure safety in and out of home. 6. Pt will be independent with HEP per total joint binder in order to continue with ROM progressionat home. 7. Pt will demonstrate understanding of proper procedures for edema control. * Kristal Garza, OT - 11/12/2024 4:17 PM EST Occupation Therapy Inpatient Initial Assessment Date:11/12/24 Time in:1617 Time out:1640 Total treatment time:23 Diagnosis: osteoarthritis of knee Surgery: left TKA with on-Q Past Medical History: Past Medical History: Diagnosis Date A-fib watchman device place per [facility] Arrhythmia Arthritis ASCUS of cervix with negative high risk HPV B12 deficiency Carotid stenosis, bilateral-Right 30%, and left 60% Central retinal artery occlusion of left eye CKD stage 3a, GFR 45-59 ml/min CLL (chronic lymphocytic leukemia) 2012 [id number] on 09-30-2020 Depression Diffuse non-Hodgkin's lymphoma chemotherapy Folate deficiency GERD (gastroesophageal reflux disease) Gout pt denies Hiatal hernia pt denies Hyperlipidemia LDL goal <70 Hypertension Hyponatremia Iron deficiency anemia Non-Hodgkin lymphoma 2011 in remission PERCY (obstructive sleep apnea) PVC's (premature ventricular contractions) 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 (blindness) Type 2 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 disease, without long-term current use of insulin Past Surgical History: Past Surgical History: Procedure Laterality Date ARTHRODESIS SACROILIAC JOINT MINIMALLY INVASIVE W/ TRANSFIXING DEVICE Right 05/03/2024 Laterality: Right; Surgeon: Isreal Sigala MD; Location: [facility] OR FLUOROSCOPY IN OR Right 05/03/2024 Laterality: Right; Surgeon: Isreal Sigala MD; Location: [facility] OR I&D BURSA FOOT Left 07/08/2023 Laterality: Left; Surgeon: Dawn Uriarte DPM; Location: [facility] OR INJECTION NERVE OTHER PERIPHERAL Left 12/16/2022 Laterality: Left; Surgeon: Isreal Sigala MD; Location: [facility] OR GUIDANCE FLUOROSCOPIC NEEDLE OR CATHETER PLACEMENT FOR SPINE INJECTION ADD-ON PX Left 12/16/2022 Laterality: Left; Surgeon: Isreal Sigala MD; Location: [facility] OR SUSPENSION URETHRA/URETHROVESICAL FEMALE OPEN W/ SYNTHETIC MATERIAL (SLING) Midline 08/31/2022 Laterality: Midline; Surgeon: Dariusz Rangel MD; Location: [facility] OR CYSTOURETHROSCOPY W/ DILATION BLADDER Midline 08/31/2022 Laterality: Midline; Surgeon: Dariusz Rangel MD; Location: [facility] OR COLPORRHAPHY ANTEROPOSTERIOR REPAIR CYSTOCELE & RECTOCELE Midline 08/31/2022 Laterality: Midline; Surgeon: Dariusz Rangel MD; Location: [facility] OR ARTHRODESIS SACROILIAC JOINT MINIMALLY INVASIVE W/ TRANSFIXING DEVICE Left 06/17/2022 Laterality: Left; Surgeon: Isreal Sigala MD; Location: [facility] OR GUIDANCE FLUOROSCOPIC NEEDLE OR CATHETER PLACEMENT FOR SPINE INJECTION ADD-ON PX Left 06/17/2022 Laterality: Left; Surgeon: Isreal Sigala MD; Location: [facility] OR EGD W/ DILATION BALLOON N/A 12/01/2021 Laterality: N/A; Surgeon: Indra Parrish DO; Location: [facility]COPY SHOULDER ARTHROSCOPY Left 06/18/2021 REMOVAL CENTRAL VENOUS ACCESS DEVICE TUNNELED W/ PORT PUMP Left 09/13/2019 Laterality: Left; Surgeon: Eduardo Muñoz MD; Location: [facility] ([facility]IR) EGD W/ DILATION BALLOON N/A 06/30/2018 Laterality: N/A; Surgeon: Indra Parrish DO; Location: [facility] EGD DIAGNOSTIC N/A 04/07/2018 Laterality: N/A; Surgeon: Wilner Leigh MD; Location: [facility] COLONOSCOPY DIAGNOSTIC N/A 04/07/2018 Laterality: N/A; Surgeon: Wilner Leigh MD; Location: [facility] KNEE REPLACEMENT Right 05/2015 done at [place]--CC ARTHROPLASTY KNEE TOTAL Right 04/2015 INSERTION PICC W/ PORT PUMP 2014 power port COLONOSCOPY DIAGNOSTIC 2006 SALPINGO-OOPHORECTOMY OPEN N/A 1983 APPENDECTOMY OPEN 1983 TONSILLECTOMY ADENOIDECTOMY 1968 EGD DIAGNOSTIC 10 months ago OTHER SURGICAL Watchman Device -placed 11/24/2023 Precautions: fall, WBAT Subjective: Pt is sitting on EOB with PT agreeable to session Orientation: x4, alert, following directions, intact safety awareness Pain: 5/10, 9/10 with mobility Pre-Admission Living Environment: Patient lives: spouse Home environment: house Steps in home:0 Steps to enter home:1 Shower type/location: walk in shower with grab bars Pre-Admission Functional Status: Equipment in Home: walker, cane, shower chair, hand held shower head, high rise toilet, maritime engineer, sock aid, long handled shoe horn, long handled sponge, dressing stick Prior level ADL function: Toileting: independent Bathing: MOD I Upper body dressing: independent Lower body dressing: independent Grooming: independent Current Functional Status: ROM: UE WFL Bed Mobility: Transfers: CGA Gait: CGA utilizing front wheeled walker Sensation: intact ADLS: Toileting: not completed Bathing: not completed Upper body dressing: independent Lower body dressing: mod assist in sitting and standing including simulated SAJI hose Grooming: not completed OT Treatment Provided: OT evaluation and self care training Education: Pt instructed on LB dressing techniques donning underwear and shorts CGA in sitting and standing with training for on-Q management Assessment: Pt presents s/p left TKA completed today. Pt is doing well, she is alert and following directions reports some lightheadedness. Pt demonstrates good safety awareness during functional mobility and transfer training following initial instruction. Pt spouse can assist as needed at home Discharge Recommendations: home Equipment Recommendations at Discharge: none OT Frequency:7 times per week OT Interventions: ADL retraining, balance and transfer training Rehab Potential: good Plan for next treatment: continue with bathing, dressing, bathroom transfers and hygiene training Occupational Therapy Goals: 1. Pt will complete LB dressing MOD I 2. Pt will complete sponge bathing MOD I 3. Pt will complete toileting MOD I 4. Pt will complete hygiene/grooming standing at sink independent 5. Pt will complete walk in shower transfer SBA * Myah Rivera RN - 11/12/2024 3:10 PM EST Patient was assessed in [facility] on 10/15. Met with patient for follow up after surgery to discuss discharge plan. Patient states the plan is to discharge home with family/friends assistance and OPtherapy at [facility], first appt scheduled 11/14 930a. Paperwork faxed to [facility] at this time. Patient has a wheeled walker and denies any additional equipment needs at this time.Nursing reports that the incision has been closed with sutures/dermabond, OnQ, 3 week follow-up appointment requested. present and attentive at bedside. Patient denies any other questions or needs at this time. * Sonido Castaneda APRN-JULISSA - 11/12/2024 1:49 PM EST THIS PATIENT HAS HAD ORTHOPEDIC SURGERY AND IS EXPECTED TO HAVE PAIN REQUIRING NARCOTICS FOR >7 DAYS AND MAY NEED UP TO 12 tabs of oxycodone PER DAY AND THEREFORE 30tabs ARE BEING DISPENSED IN ACCORDANCE WITH POC DISCUSSED WITH DR BLACKWOOD. * Myah Rivera RN - 11/09/2024 10:27 AM EST Pre-op call attempted with no answer at this time, VM left with arrival time of 945am on Tuesday, pre-op reminders and call back information. documented in this [facility] [place]01-21-2025 Hospital course Narrative* Washington Maxwell MD - 11/13/2024 7:36 AM EST Images from the original note were not included. Discharge Summary Name: Elena Galeano Age: 64 y.o. Birthday: 1960 Admit Date: 11/12/2024 9:34 AM Discharge Date: 11/13/24 Discharge Time: Afternoon Discharge Unit: Med/Surg Admission Information Admitting Physician: Gonsalo Blackwood MD Discharge Information Discharge Physician: Washington Maxwell MD Problem List Active Hospital Problems Diagnosis Osteoarthritis of left knee Resolved Hospital Problems No resolved problems to display. Brief Summary of Hospital Course for Discharge Summary: Patient is a 64-year-old female who presents for total knee arthroplasty. She is doing well postoperatively. Pain is adequately controlled. She has ambulated and voided. She denies chest pain, palpitations, cough, sputum, shortness of breath, nausea, vomiting, lower extremity edema. Therapy going well. Known type 2 diabetes. she is feeling well with no complaints relative to her diabetes. Patient has been compliant with medications. she denies medication side effects. she denies chest pain, SOB, BOWLING, palpitations, orthopnea, PND, edema, headache, focal neurologic complaints, claudication, dysesthesias, polyuria, polydipsia. Normal urine output. No vision changes. Known hyperlipidemia. she is feeling well. There are no complaints relative to her lipids. Patient is compliant with medications. she denies any side effects from medications. she denies chest pain, SOB, BOWLING, palpitations, orthopnea, PND, edema, headache, focal neurologic complaints, claudication. Known hypothyroid. she is feeling well without complaint or medication side effect. she denies fatigue, cold, constipation, dry skin, weight gain, weakness, abnormal periods (for females), hair loss, depression, memory problems, edema. Known gout. No recent flares. Known GERD/gastritis. Symptoms are under good control. There are no side effects noted from the medication. she denies water brash, bitter or metallic taste, dysphagia, nausea, vomiting, hematemesis, melena,or black/tarry stools. Paroxysmal atrial fibrillation status post Watchman device. Known cerebrovascular disease. No new neurologic symptoms. Known COPD. Control is at baseline. No increase in rescue use. No increase in cough, sputum, SOB. Compliance with medication is good. No medication side effects. she denies fever, chills, hemoptysis, pleuritic pain. No oral pain or lesions. she denies fever, chills, headache, sore throat, chest pain, palpitations, nausea, vomiting, diarrhea, dysuria, frequency, hematuria. Known obstructive sleep apnea. Doing well on CPAP. Chronic renal insufficiency. Creatinine at baseline. Known anxiety/depression. Doing well on medication without side effects. Known CLL. Recent CBC normal. General: No fever, chills, weight loss. HEENT: No sinus pain, ear pain, sore throat. Neck: No LAD. Lungs: No cough, sputum, pleuritic pain, hemoptysis, SOB. CV: No chest pain, palpitation, orthopnea, PND, edema. GI: No abd pain, nausea, vomiting, diarrhea, constipation, melena, hematochezia. : No dysuria, frequency, hematuria. Skin: No rash or lesion. Neuro: No mental status changes, headache, focal neurologic complaints. Objective: Blood pressure 140/60, pulse 65, temperature 98.1 F (36.7 C), temperature source Oral, resp. rate 18, height 1.651 m (5' 5), weight 96 kg (211 lb 11.2 oz), SpO2 97%, not currently . Results for orders placed or performed during the hospital encounter of 11/12/24 CBC, EDIF, PLATELET Result Value Ref Range WBC (WHITE BLOOD COUNT) 9.6 3.6 - 11.0 10*3/uL RBC 3.30 (L) 4.0 - 5.4 10*6/uL HEMOGLOBIN (HGB) 10.6 (L) 12.0 - 16.0 G/DL HEMATOCRIT (HCT) 31.4 (L) 36.0 - 48.0 % MEAN CELL VOLUME 95.2 80.0 - 100.0 FL Mean Cell HGB 32.2 26.0 - 35.0 PG MEAN CELL HGB CONCENTRATION 33.8 27.0 - 37.0 G/DL RBC DISTRIBUTION 13.4 11.5 - 14.5 % PLATELET COUNT 159 130 - 400 10*3/uL MEAN PLATELET VOLUME 9.5 7.4 - 11.0 FL DIFFERENTIAL TYPE AUTO DIFF % NEUTROPHILS 78.1 (H) 37.0 - 75.0 % LYMPHOCYTE 16.9 (L) 20.0 - 55.0 % MONOCYTE % 5.0 0.0 - 10.0 % EOSINOPHIL % 0.0 0.0 - 11.0 % BASOPHIL % 0.0 0.0 - 2.0 % Absolute Neutrophil Count 7.5 (H) 1.4 - 6.5 10*3/uL LYMPHOCYTES, ABSOLUTE 1.6 1.2 - 3.4 10*3/uL MONOCYTES, ABSOLUTE 0.5 0.0 - 0.7 10*3/uL ABSOLUTE EOSINOPHIL COUNT 0.0 0.0 - 0.7 10*3/uL ABSOLUTE BASOPHIL COUNT 0.0 0.0 - 0.2 10*3/uL BASIC METABOLIC PANEL Result Value Ref Range Glucose 165 (H) 70 - 100 MG/DL BUN 8 7 - 20 MG/DL CREATININE SERUM 0.70 0.70 - 1.20 MG/DL SODIUM 134 (L) 137 - 145 MMOL/L Potassium 3.8 3.5 - 5.1 MMOL/L CHLORIDE 101 98 - 107 MMOL/L CARBON DIOXIDE (CO2) 24 22 - 30 MMOL/L ANION GAP 9 MMOL/L CALCIUM 8.5 8.4 - 10.2 MG/DL ESTIMATED GFR, NON AMER 89 ml/min/1.73sq.m ESTIMATED GFR, 108 ml/min/1.73sq.m GFR COMMENT Average GFR for 60-69 years old = 85. HEENT: NC/AT, PERRLA, EOMI, fundi benign, external ears normal, OP normal. Neck: No LAD/thyromegaly. No JVD/bruit. Lungs: Clear to auscultation bilaterally. No wheezes, rales, ronchi. Heart: RRR. No S3/S4. Abdomen: Soft, NT/ND, normal bowel sounds, no HSM, no bruits. Extremities: No clubbing, cyanosis, edema. Normal pulses. Neurologic: CN II-XII intact. Strength/DTR's/sensation symmetric. Cerebellar function normal. Skin: No rash or suspicious lesions. Musculoskeletal: No edema, redness, warmth, deformities. Psychiatric: Alert and oriented. Affect and mood normal. Assessment and Plan: Postop day 1 total knee arthroplasty - pain medication, therapy, anticoagulation per Orthopedic surgery. Medically stable for discharge. Type 2 diabetes mellitus - carb controlled diet at home. Hyperlipidemia - continue home medications and monitor clinically. Hypothyroid - continue home medication. Gout - continue home medications. GERD - continue proton pump inhibitor. Paroxysmal atrial fibrillation status post Watchman device - normal sinus rhythm during hospitalization. Cerebrovascular disease - neurologic exam remained nonfocal. COPD - p.r.n. albuterol. Obstructive sleep apnea - continue CPAP at home. Chronic renal insufficiency - creatinine stable and urine output normal. CLL - no acute management required. Expected drop in hemoglobin otherwise CBC stable. Anxiety/depression - continue home medications and monitor clinically. 35 minutes total time. Washington Maxwell MD 11/13/2024 Brief Summary of Consults for Discharge Summary: Brief Summary of Procedures and Imaging for Discharge Summary: Summary of last selected lab results and date obtained: Lab Results Component Value Date WBC 9.6 11/13/2024 HGB 10.6 (L) 11/13/2024 HCT 31.4 (L) 11/13/2024 PLATELET 159 11/13/2024 MCV 95.2 11/13/2024 Lab Results Component Value Date SODIUM 134 (L) 11/13/2024 POTASSIUM 3.8 11/13/2024 CHLORIDE 101 11/13/2024 CO2 24 11/13/2024 BUN 8 11/13/2024 CREATSERUM 0.70 11/13/2024 GLUCOSE 165 (H) 11/13/2024 Lab Results Component Value Date ALT 70 (H) 10/15/2024 AST 51 (H) 10/15/2024 ALKPHOS 48 10/15/2024 BILITOTAL 0.4 10/15/2024 BILIDIRECT 0.1 10/22/2023 Brief Summary of Labs for Discharge Summary: Discharge Orders AMB REFERRAL TO PHYSICAL THERAPY Current Outpatient Meds: Medication List for when you go home START taking these medications Morning Afternoon Evening Bedtime As Needed Acetaminophen 325 MG tablet Take 2 tablets by mouth every 6 hours as needed for Mild Pain. Commonly known as: TYLENOL Last time this was given: 1,000 mg on November 13, 2024 4:16 AM Celecoxib 100 MG CAPS Take 1 capsule by mouth 2 times daily. Commonly known as: CELEBREX Docusate 100 MG CAPS Take 1 capsule by mouth 2 times daily. Commonly known as: COLACE Last time this was given: 100 mg on November 12, 2024 4:27 PM naloxone 4 MG/0.1ML 1 spray by Nasal route once for 1 dose. [place] into the nose as directed. Call 911. If no response in 2 minutes use a new nasal spray in other nostril. Repeat until help arrives. Commonly known as: NARCAN oxyCODONE 5 MG TABS Take 1-2 tabs po q 4-6 hours prn pain. Wean as tolerated. Commonly known as: ROXICODONE For diagnoses: Acute postoperative pain of left knee Last time this was given: 5 mg on November 13, 2024 4:16 AM therapeutic multivitamin-minerals TABS Take 1 tablet by mouth at bedtime. CHANGE how you take these medications Morning Afternoon Evening Bedtime As Needed * Aspirin [address] tablet Take 1 tab twice a day for 30 days. This medication is for blood clot prevention. What changed: You were already taking a medication with the same name, and this prescription was added. Make sure you understand how and when to take each. * SB Low Dose ASA EC [address] tablet Take 1 tablet by mouth daily with breakfast. OTC What changed: Another medication with the same name was added. Make sure you understand how and when to take each. Generic drug: Aspirin * The same medication is listed twice. Please discuss with your provider. CONTINUE taking these medications Morning Afternoon Evening Bedtime As Needed Albuterol 108 (90 Base) MCG/ACT AERS inhaler Inhale 2 puffs every 6 hours as needed for Wheezing. Commonly known as: Ventolin HFA Allopurinol 100 MG TABS Take 1 tablet by mouth daily. Commonly known as: ZYLOPRIM buPROPion 300 MG tablet XL Take 1 tablet by mouth every morning before breakfast. Cancel previous refills Commonly known as: Wellbutrin XL Last time this was given: 300 mg on November 13, 2024 6:10 AM carveDILOL 12.5 MG TABS Take 1 tablet by mouth 2 times daily with meals. Cancel previous refills Commonly known as: Coreg For diagnoses: Essential hypertension Last time this was given: 12.5 mg on November 12, 2024 6:26 PM Cetirizine 10 MG TABS Take 1 tablet by mouth daily. OTC Commonly known as: ZyrTEC cyanocobalamin 1000 MCG TABS Take 1 tablet by mouth daily. Chew 1 tab q daily. Cancel previous refills Commonly known as: VITAMIN B12 Escitalopram 10 MG TABS Take 1 tablet by mouth daily. Cancel previous refills Commonly known as: Lexapro fenofibrate 160 MG TABS Take 1 tablet by mouth daily. Cancel previous refills Commonly known as: LOFIBRA For diagnoses: Hypertriglyceridemia Flonase Allergy Relief 50 MCG/ACT SUSP nasal spray 2 sprays by Nasal route daily as needed. OTC Generic drug: fluticasone Folic acid 1 MG TABS Take 1 tablet by mouth daily. Cancel previous refills Commonly known as: FOLVITE Lisinopril 5 MG TABS Take 1 tablet by mouth daily. Cancel previous refills Commonly known as: PRINIVIL For diagnoses: Essential hypertension magnesium oxide 400 (240 Mg) MG Take 1 tablet by mouth 2 times daily with meals. Commonly known as: MAG-OX Pantoprazole [address] tablet DR Take 1 tablet by mouth 2 times daily (take before meals). Cancel previous refills Commonly known as: Protonix Last time this was given: 40 mg on November 12, 2024 6:26 PM Repatha SureClick 140 MG/ML SOAJ injection Inject 1 mL under the skin every 14 days. SATURDAYS For diagnoses: Hypertriglyceridemia, Hyperlipidemia LDL goal <70 Generic drug: Evolocumab traZODone 100 MG TABS Take 1 tablet by mouth at bedtime. Cancel previous refills Commonly known as: DESYREL Last time this was given: 100 mg on November 12, 2024 8:40 PM triamterene-hydrochlorothiazide 37.5-25 MG per capsule Take 1 capsule by mouth daily. Cancel previous refills Commonly known as: Dyazide For diagnoses: Essential hypertension Medication Instructions: Medications: > Patients will be sent home with prescriptions, including medication for pain to be taken as directed. Stay ahead and do not allow your pain to get out of control. > If prescribed Aspirin, take twice a day for 30 days. Do not skip a dose, this is your medication for the prevention of blood clots. > If you have not had a bowel movement by your 3rd post-operative day you will need to use a gentle over the counter laxative such as Milk of magnesia, Fiberlax, Miralax, etc. Bowels need to move within 3 days or take action. Follow-up: Other [place] [phone] Follow up First appt 11/14 930a, arrive 15 minutes before appt time Upcoming Appointments (up to five)-Some appointments for [facility] Center outpatient clinics or diagnostic testing locations are not displayed below Next 5 Appointments Provider Department Dept Phone 11/29/2024 1:00 PM [facility] FLUOR[facility], [facility]I; [facility], [facility] [phone] 11/29/2024 1:00 PM Vero Lange [facility] Speech Therapy [phone] 12/31/2024 3:00 PM Fernie Paredes [facility] Medicine [phone] 02/08/2025 2:20 [facility] [phone] 09/11/2025 11:20 AM Naty Bhakta Division of Hematology & Oncology at [facility] Arrive at: Arrive to First Floor Registration [phone] Displaying the next 5 appointments. This patient has additional appointments scheduled. [facility] Consult note* Washington Maxwell MD - 11/12/2024 5:11 PM ESTAssociated Order(s): IP CONSULT TO GENERAL MEDICINE Medical consultation Patient is a 64-year-old female who presents for total knee arthroplasty. She was at her baseline state of health prior to surgery and was medically optimized by her primary care provider, gravity prospecting observer helper, and edge banding machine offbearer. Preoperative testing notable for a blood sugar of 151, a hemoglobin A1c of 5.9, and a urinalysis with trace leukocyte esterase. She is doing well postoperatively. Pain is adequately controlled. She has ambulated and voided. She denies chest pain, palpitations, cough, sputum, shortness of breath, nausea, vomiting, lower extremity edema. Known type 2 diabetes. she is feeling well with no complaints relative to her diabetes. Patient has been compliant with medications. she denies medication side effects. she denies chest pain, SOB, BOWLING, palpitations, orthopnea, PND, edema, headache, focal neurologic complaints, claudication, dysesthesias, polyuria, polydipsia. Normal urine output. No vision changes. Known hyperlipidemia. she is feeling well. There are no complaints relative to her lipids. Patient is compliant with medications. she denies any side effects from medications. she denies chest pain, SOB, BOWLING, palpitations, orthopnea, PND, edema, headache, focal neurologic complaints, claudication. Known hypothyroid. she is feeling well without complaint or medication side effect. she denies fatigue, cold, constipation, dry skin, weight gain, weakness, abnormal periods (for females), hair loss, depression, memory problems, edema. Known gout. No recent flares. Known GERD/gastritis. Symptoms are under good control. There are no side effects noted from the medication. she denies water brash, bitter or metallic taste, dysphagia, nausea, vomiting, hematemesis, melena,or black/tarry stools. Paroxysmal atrial fibrillation status post Watchman device. Known cerebrovascular disease. No new neurologic symptoms. Known COPD. Control is at baseline. No increase in rescue use. No increase in cough, sputum, SOB. Compliance with medication is good. No medication side effects. she denies fever, chills, hemoptysis, pleuritic pain. No oral pain or lesions. she denies fever, chills, headache, sore throat, chest pain, palpitations, nausea, vomiting, diarrhea, dysuria, frequency, hematuria. Known obstructive sleep apnea. Doing well on CPAP. Chronic renal insufficiency. Creatinine at baseline. Known anxiety/depression. Doing well on medication without side effects. Known CLL. Recent CBC normal. General: No fever, chills, weight loss. HEENT: No sinus pain, ear pain, sore throat. Neck: No LAD. Lungs: No cough, sputum, pleuritic pain, hemoptysis, SOB. CV: No chest pain, palpitation, orthopnea, PND, edema. GI: No abd pain, nausea, vomiting, diarrhea, constipation, melena, hematochezia. : No dysuria, frequency, hematuria. Skin: No rash or lesion. Neuro: No mental status changes, headache, focal neurologic complaints. Past Medical History: Diagnosis Date A-fib watchman device place per [facility] Arrhythmia Arthritis ASCUS of cervix with negative high risk HPV B12 deficiency Carotid stenosis, bilateral-Right 30%, and left 60% Central retinal artery occlusion of left eye CKD stage 3a, GFR 45-59 ml/min CLL (chronic lymphocytic leukemia) 2011 [id number] on 09-30-2020 Depression Diffuse non-Hodgkin's lymphoma chemotherapy Folate deficiency GERD (gastroesophageal reflux disease) Gout pt denies Hiatal hernia pt denies Hyperlipidemia LDL goal <70 Hypertension Hyponatremia Iron deficiency anemia Non-Hodgkin lymphoma 2012 in remission PERCY (obstructive sleep apnea) PVC's (premature ventricular contractions) 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 (blindness) Type 2 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 disease, without long-term current use of insulin Past Surgical History: Procedure Laterality Date ARTHRODESIS SACROILIAC JOINT MINIMALLY INVASIVE W/ TRANSFIXING DEVICE Right 05/03/2024 Laterality: Right; Surgeon: Isreal Sigala MD; Location: [facility] OR FLUOROSCOPY IN OR Right 05/03/2024 Laterality: Right; Surgeon: Isreal Sigala MD; Location: [facility] OR I&D BURSA FOOT Left 07/08/2023 Laterality: Left; Surgeon: Dawn Uriarte DPM; Location: [facility] OR INJECTION NERVE OTHER PERIPHERAL Left 12/16/2022 Laterality: Left; Surgeon: Isreal Sigala MD; Location: [facility] OR GUIDANCE FLUOROSCOPIC NEEDLE OR CATHETER PLACEMENT FOR SPINE INJECTION ADD-ON PX Left 12/16/2022 Laterality: Left; Surgeon: Isreal Sigala MD; Location: [facility] OR SUSPENSION URETHRA/URETHROVESICAL FEMALE OPEN W/ SYNTHETIC MATERIAL (SLING) Midline 08/31/2022 Laterality: Midline; Surgeon: Dariusz Rangel MD; Location: [facility] OR CYSTOURETHROSCOPY W/ DILATION BLADDER Midline 08/31/2022 Laterality: Midline; Surgeon: Dariusz Rangel MD; Location: [facility] OR COLPORRHAPHY ANTEROPOSTERIOR REPAIR CYSTOCELE & RECTOCELE Midline 08/31/2022 Laterality: Midline; Surgeon: Dariusz Rangel MD; Location: [facility] OR ARTHRODESIS SACROILIAC JOINT MINIMALLY INVASIVE W/ TRANSFIXING DEVICE Left 06/17/2022 Laterality: Left; Surgeon: Isreal Sigala MD; Location: [facility] OR GUIDANCE FLUOROSCOPIC NEEDLE OR CATHETER PLACEMENT FOR SPINE INJECTION ADD-ON PX Left 06/17/2022 Laterality: Left; Surgeon: Isreal Sigala MD; Location: [facility] OR EGD W/ DILATION BALLOON N/A 12/01/2021 Laterality: N/A; Surgeon: Indra Parrish DO; Location: [facility] SHOULDER ARTHROSCOPY Left 06/18/2021 REMOVAL CENTRAL VENOUS ACCESS DEVICE TUNNELED W/ PORT PUMP Left 09/13/2019 Laterality: Left; Surgeon: Eduardo Muñoz MD; Location: [facility] INTERVENTIONAL RADIOLOGY (VIR) EGD W/ DILATION BALLOON N/A 06/30/2018 Laterality: N/A; Surgeon: Indra Parrish DO; Location: [facility] ENDOS[facility] EGD DIAGNOSTIC N/A 04/07/2018 Laterality: N/A; Surgeon: Wilner Leigh MD; Location: [facility] END[facility] COLONOSCOPY DIAGNOSTIC N/A 04/07/2018 Laterality: N/A; Surgeon: Wilner Leigh MD; Location: [facility] KNEE REPLACEMENT Right 05/2015 done at [place]--CC ARTHROPLASTY KNEE TOTAL Right 04/2015 INSERTION PICC W/ PORT PUMP 2014 power port COLONOSCOPY DIAGNOSTIC 2006 SALPINGO-OOPHORECTOMY OPEN N/A 1984 APPENDECTOMY OPEN 1983 TONSILLECTOMY ADENOIDECTOMY 1968 EGD DIAGNOSTIC 10 months ago OTHER SURGICAL Watchman Device -placed 11/24/2023 Social History Socioeconomic History Marital status: Spouse name: Not on file Number of children: Not on file Years of education: Not on file Highest education level: Not on file Occupational History Employer: RETIRED Tobacco Use Smoking status: Former Current packs/day: 0.00 Average packs/day: 0.8 packs/day for 35.0 years (26.3 ttl pk-yrs) Types: Cigarettes Start date: 04/23/1978 Quit date: 04/23/2013 Years since quittin.5 Smokeless tobacco: Never Vaping Use Vaping status: Never Used Substance and Sexual Activity Alcohol use: Yes Alcohol/week: 3.0 standard drinks of alcohol Types: 3 Cans of beer per week Comment: Hx ETOH abuse Drug use: Never Sexual activity: Not Currently Partners: Male control/protection: Menopause Other Topics Concern Service Not Asked Blood Transfusions Not Asked Caffeine Concern Not Asked Occupational Exposure Not Asked Hobby Hazards Not Asked Sleep Concern Not Asked Stress Concern Not Asked Weight Concern Not Asked Special Diet Not Asked Back Care Not Asked Exercise Not Asked Bike Helmet Not Asked Seat Belt Not Asked Domestic Violence No Social History Narrative Not on file Social Determinants of Health Financial Resource Strain: Low Risk (11/10/2022) [facility] Overall Financial Resource Strain (CARDIA) Difficulty of Paying Living Expenses: Not hard at all Food Insecurity: No Food Insecurity (11/12/2024) Hunger Vital Sign Worried About Running Out of Food in the Last Year: Never true Ran Out of Food in the Last Year: Never true Transportation Needs: No Transportation Needs (11/12/2024) PRAPARE - Transportation Lack of Transportation (Medical): No Lack of Transportation (Non-Medical): No Physical Activity: Not on file Stress: Not on file Social Connections: Not on file Intimate Partner Violence: Not At Risk (11/12/2024) Humiliation, Afraid, Rape, and Kick questionnaire Fear of Current or Ex-Partner: No Emotionally Abused: No Physically Abused: No Sexually Abused: No Housing Stability: Low Risk (11/12/2024) Housing Stability Vital Sign Unable to Pay for Housing in the Last Year: No Number of Times Moved in the Last Year: 0 Homeless in the Last Year: No Allergies Allergen Reactions Nsaids Has CKD-3a, and Anemia Objective: Blood pressure 146/65, pulse 58, temperature 98.1 F (36.7 C), temperature source Temporal, resp. rate 15, height 1.651 m (5' 5), weight 96 kg (211 lb 11.2 oz), SpO2 95%, not currently . Results for orders placed or performed in visit on 10/15/24 URINE MICROSCOPIC Result Value Ref Range WBC, URINE '5 TO 10 NEGATIVE /HPF RBC, URINE NEGATIVE NEGATIVE /HPF Epithelial Cells UA 10 TO 20 /HPF Mucus NEGATIVE NEGATIVE BACTERIA, URINE 2+ (A) NEGATIVE CRYSTALS, URINE NONE NONE CASTS, URINE NONE NONE /LPF COMMENT, URINE POSSIBLY CONTAMINATED SPECIMEN, CULTURE MUST BE ORDERED SEPARATELY IF DEEMED NECESSARY. HEENT: NC/AT, PERRLA, EOMI, fundi benign, external ears normal, OP normal. Neck: No LAD/thyromegaly. No JVD/bruit. Lungs: Clear to auscultation bilaterally. No wheezes, rales, ronchi. Heart: RRR. No S3/S4. Abdomen: Soft, NT/ND, normal bowel sounds, no HSM, no bruits. Extremities: No clubbing, cyanosis, edema. Normal pulses. Neurologic: CN II-XII intact. Strength/DTR's/sensation symmetric. Cerebellar function normal. Skin: No rash or suspicious lesions. Musculoskeletal: No edema, redness, warmth, deformities. Psychiatric: Alert and oriented. Affect and mood normal. Assessment and Plan: Postop day 0 total knee arthroplasty - pain medication, therapy, anticoagulation per Orthopedic surgery. Type 2 diabetes mellitus - carb controlled diet. No need for sliding scale insulin with normal hemoglobin A1c. Hyperlipidemia - continue home medications and monitor clinically. Hypothyroid - currently euthyroid. Continue home medication. Gout - continue home medications and monitor clinically for flare. GERD - proton pump inhibitor also for GI prophylaxis. Paroxysmal atrial fibrillation status post Watchman device - continue home medications, telemetry. Cerebrovascular disease - continue home medications and monitor clinically. COPD - p.r.n. albuterol. Obstructive sleep apnea - CPAP at home settings. Chronic renal insufficiency - hydrate and follow creatinine. CLL - no acute management required. Follow CBC. Anxiety/depression - continue home medications and monitor clinically. 55 minutes total time. Washington Maxwell MD 11/12/2024 [facility]01-20-2025 Consult note* Washington Maxwell MD - 11/12/2024 5:11 PM ESTAssociated Order(s): IP CONSULT TO GENERAL MEDICINE Medical consultation Patient is a 64-year-old female who presents for total knee arthroplasty. She was at her baseline state of health prior to surgery and was medically optimized by her primary care provider, gravity prospecting observer helper, and edge banding machine offbearer. Preoperative testing notable for a blood sugar of 151, a hemoglobin A1c of 5.9, and a urinalysis with trace leukocyte esterase. She is doing well postoperatively. Pain is adequately controlled. She has ambulated and voided. She denies chest pain, palpitations, cough, sputum, shortness of breath, nausea, vomiting, lower extremity edema. Known type 2 diabetes. she is feeling well with no complaints relative to her diabetes. Patient has been compliant with medications. she denies medication side effects. she denies chest pain, SOB, BOWLING, palpitations, orthopnea, PND, edema, headache, focal neurologic complaints, claudication, dysesthesias, polyuria, polydipsia. Normal urine output. No vision changes. Known hyperlipidemia. she is feeling well. There are no complaints relative to her lipids. Patient is compliant with medications. she denies any side effects from medications. she denies chest pain, SOB, BOWLING, palpitations, orthopnea, PND, edema, headache, focal neurologic complaints, claudication. Known hypothyroid. she is feeling well without complaint or medication side effect. she denies fatigue, cold, constipation, dry skin, weight gain, weakness, abnormal periods (for females), hair loss, depression, memory problems, edema. Known gout. No recent flares. Known GERD/gastritis. Symptoms are under good control. There are no side effects noted from the medication. she denies water brash, bitter or metallic taste, dysphagia, nausea, vomiting, hematemesis, melena,or black/tarry stools. Paroxysmal atrial fibrillation status post Watchman device. Known cerebrovascular disease. No new neurologic symptoms. Known COPD. Control is at baseline. No increase in rescue use. No increase in cough, sputum, SOB. Compliance with medication is good. No medication side effects. she denies fever, chills, hemoptysis, pleuritic pain. No oral pain or lesions. she denies fever, chills, headache, sore throat, chest pain, palpitations, nausea, vomiting, diarrhea, dysuria, frequency, hematuria. Known obstructive sleep apnea. Doing well on CPAP. Chronic renal insufficiency. Creatinine at baseline. Known anxiety/depression. Doing well on medication without side effects. Known CLL. Recent CBC normal. General: No fever, chills, weight loss. HEENT: No sinus pain, ear pain, sore throat. Neck: No LAD. Lungs: No cough, sputum, pleuritic pain, hemoptysis, SOB. CV: No chest pain, palpitation, orthopnea, PND, edema. GI: No abd pain, nausea, vomiting, diarrhea, constipation, melena, hematochezia. : No dysuria, frequency, hematuria. Skin: No rash or lesion. Neuro: No mental status changes, headache, focal neurologic complaints. Past Medical History: Diagnosis Date A-fib watchman device place per [facility] Arrhythmia Arthritis ASCUS of cervix with negative high risk HPV B12 deficiency Carotid stenosis, bilateral-Right 30%, and left 60% Central retinal artery occlusion of left eye CKD stage 3a, GFR 45-59 ml/min CLL (chronic lymphocytic leukemia) 2011 [id number] on 09-30-2020 Depression Diffuse non-Hodgkin's lymphoma chemotherapy Folate deficiency GERD (gastroesophageal reflux disease) Gout pt denies Hiatal hernia pt denies Hyperlipidemia LDL goal <70 Hypertension Hyponatremia Iron deficiency anemia Non-Hodgkin lymphoma 2011 in remission PERCY (obstructive sleep apnea) PVC's (premature ventricular contractions) 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 (blindness) Type 2 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 disease, without long-term current use of insulin Past Surgical History: Procedure Laterality Date ARTHRODESIS SACROILIAC JOINT MINIMALLY INVASIVE W/ TRANSFIXING DEVICE Right 05/03/2024 Laterality: Right; Surgeon: Isreal Sigala MD; Location: [facility] OR FLUOROSCOPY IN OR Right 05/03/2024 Laterality: Right; Surgeon: Isreal Sigala MD; Location: [facility] OR I&D BURSA FOOT Left 07/08/2023 Laterality: Left; Surgeon: Dawn Uriarte DPM; Location: [facility] OR INJECTION NERVE OTHER PERIPHERAL Left 12/16/2022 Laterality: Left; Surgeon: Isreal Sigala MD; Location: [facility] OR GUIDANCE FLUOROSCOPIC NEEDLE OR CATHETER PLACEMENT FOR SPINE INJECTION ADD-ON PX Left 12/16/2022 Laterality: Left; Surgeon: Isreal Sigala MD; Location: [facility] OR SUSPENSION URETHRA/URETHROVESICAL FEMALE OPEN W/ SYNTHETIC MATERIAL (SLING) Midline 08/31/2022 Laterality: Midline; Surgeon: Dariusz Rangel MD; Location: [facility] OR CYSTOURETHROSCOPY W/ DILATION BLADDER Midline 08/31/2022 Laterality: Midline; Surgeon: Dariusz Rangel MD; Location: [facility] OR COLPORRHAPHY ANTEROPOSTERIOR REPAIR CYSTOCELE & RECTOCELE Midline 08/31/2022 Laterality: Midline; Surgeon: Dariusz Rangel MD; Location: [facility] OR ARTHRODESIS SACROILIAC JOINT MINIMALLY INVASIVE W/ TRANSFIXING DEVICE Left 06/17/2022 Laterality: Left; Surgeon: Isreal Sigala MD; Location: [facility] OR GUIDANCE FLUOROSCOPIC NEEDLE OR CATHETER PLACEMENT FOR SPINE INJECTION ADD-ON PX Left 06/17/2022 Laterality: Left; Surgeon: Isreal Sigala MD; Location: [facility] OR EGD W/ DILATION BALLOON N/A 12/01/2021 Laterality: N/A; Surgeon: Indra Parrish DO; Location: [facility] END[facility] SHOULDER ARTHROSCOPY Left 06/18/2021 REMOVAL CENTRAL VENOUS ACCESS DEVICE TUNNELED W/ PORT PUMP Left 09/13/2019 Laterality: Left; Surgeon: Eduardo Muñoz MD; Location: [facility] INTERVENTIONAL RADIOLOGY (VIR) EGD W/ DILATION BALLOON N/A 06/30/2018 Laterality: N/A; Surgeon: Indra Parrish DO; Location: [facility] ENDOS[facility] EGD DIAGNOSTIC N/A 04/07/2018 Laterality: N/A; Surgeon: Wilner Leigh MD; Location: [facility] ENDOS[facility] COLONOSCOPY DIAGNOSTIC N/A 04/07/2018 Laterality: N/A; Surgeon: Wilner Leigh MD; Location: [facility] ENDOS[facility] KNEE REPLACEMENT Right 05/2015 done at [place]--CC ARTHROPLASTY KNEE TOTAL Right 04/2015 INSERTION PICC W/ PORT PUMP 2015 power port COLONOSCOPY DIAGNOSTIC 2006 SALPINGO-OOPHORECTOMY OPEN N/A 1984 APPENDECTOMY OPEN 1983 TONSILLECTOMY ADENOIDECTOMY 1968 EGD DIAGNOSTIC 10 months ago OTHER SURGICAL Watchman Device -placed 11/24/2023 Social History Socioeconomic History Marital status: Spouse name: Not on file Number of children: Not on file Years of education: Not on file Highest education level: Not on file Occupational History Employer: RETIRED Tobacco Use Smoking status: Former Current packs/day: 0.00 Average packs/day: 0.8 packs/day for 35.0 years (26.3 ttl pk-yrs) Types: Cigarettes Start date: 04/23/1978 Quit date: 04/23/2013 Years since quittin.5 Smokeless tobacco: Never Vaping Use Vaping status: Never Used Substance and Sexual Activity Alcohol use: Yes Alcohol/week: 3.0 standard drinks of alcohol Types: 3 Cans of beer per week Comment: Hx ETOH abuse Drug use: Never Sexual activity: Not Currently Partners: Male control/protection: Menopause Other Topics Concern Service Not Asked Blood Transfusions Not Asked Caffeine Concern Not Asked Occupational Exposure Not Asked Hobby Hazards Not Asked Sleep Concern Not Asked Stress Concern Not Asked Weight Concern Not Asked Special Diet Not Asked Back Care Not Asked Exercise Not Asked Bike Helmet Not Asked Seat Belt Not Asked Domestic Violence No Social History Narrative Not on file Social Determinants of Health Financial Resource Strain: Low Risk (11/10/2022) [facility] Overall Financial Resource Strain (CARDIA) Difficulty of Paying Living Expenses: Not hard at all Food Insecurity: No Food Insecurity (11/12/2024) Hunger Vital Sign Worried About Running Out of Food in the Last Year: Never true Ran Out of Food in the Last Year: Never true Transportation Needs: No Transportation Needs (11/12/2024) PRAPARE - Transportation Lack of Transportation (Medical): No Lack of Transportation (Non-Medical): No Physical Activity: Not on file Stress: Not on file Social Connections: Not on file Intimate Partner Violence: Not At Risk (11/12/2024) Humiliation, Afraid, Rape, and Kick questionnaire Fear of Current or Ex-Partner: No Emotionally Abused: No Physically Abused: No Sexually Abused: No Housing Stability: Low Risk (11/12/2024) Housing Stability Vital Sign Unable to Pay for Housing in the Last Year: No Number of Times Moved in the Last Year: 0 Homeless in the Last Year: No Allergies Allergen Reactions Nsaids Has CKD-3a, and Anemia Objective: Blood pressure 146/65, pulse 58, temperature 98.1 F (36.7 C), temperature source Temporal, resp. rate 15, height 1.651 m (5' 5), weight 96 kg (211 lb 11.2 oz), SpO2 95%, not currently . Results for orders placed or performed in visit on 10/15/24 URINE MICROSCOPIC Result Value Ref Range WBC, URINE '5 TO 10 NEGATIVE /HPF RBC, URINE NEGATIVE NEGATIVE /HPF Epithelial Cells UA 10 TO 20 /HPF Mucus NEGATIVE NEGATIVE BACTERIA, URINE 2+ (A) NEGATIVE CRYSTALS, URINE NONE NONE CASTS, URINE NONE NONE /LPF COMMENT, URINE POSSIBLY CONTAMINATED SPECIMEN, CULTURE MUST BE ORDERED SEPARATELY IF DEEMED NECESSARY. HEENT: NC/AT, PERRLA, EOMI, fundi benign, external ears normal, OP normal. Neck: No LAD/thyromegaly. No JVD/bruit. Lungs: Clear to auscultation bilaterally. No wheezes, rales, ronchi. Heart: RRR. No S3/S4. Abdomen: Soft, NT/ND, normal bowel sounds, no HSM, no bruits. Extremities: No clubbing, cyanosis, edema. Normal pulses. Neurologic: CN II-XII intact. Strength/DTR's/sensation symmetric. Cerebellar function normal. Skin: No rash or suspicious lesions. Musculoskeletal: No edema, redness, warmth, deformities. Psychiatric: Alert and oriented. Affect and mood normal. Assessment and Plan: Postop day 0 total knee arthroplasty - pain medication, therapy, anticoagulation per Orthopedic surgery. Type 2 diabetes mellitus - carb controlled diet. No need for sliding scale insulin with normal hemoglobin A1c. Hyperlipidemia - continue home medications and monitor clinically. Hypothyroid - currently euthyroid. Continue home medication. Gout - continue home medications and monitor clinically for flare. GERD - proton pump inhibitor also for GI prophylaxis. Paroxysmal atrial fibrillation status post Watchman device - continue home medications, telemetry. Cerebrovascular disease - continue home medications and monitor clinically. COPD - p.r.n. albuterol. Obstructive sleep apnea - CPAP at home settings. Chronic renal insufficiency - hydrate and follow creatinine. CLL - no acute management required. Follow CBC. Anxiety/depression - continue home medications and monitor clinically. 55 minutes total time. Washington Maxwell MD 11/12/2024 documented in this [facility]01-20-2025 Plan of care note* Plan of Care - Annalee Lindsay RN - 11/12/2024 4:24 PM EST Problem: Fall Injury Risk Goal: Fall/Trauma/Injury Risk: Absence of Trauma/Injury/Falls Description: Patient will demonstrate the desired outcomes. Outcome: Progressing Goal: Knowledge of risk factors/behavior modification Description: Knowledge of risk factors/behavior modification for fall/injury prevention Outcome: Progressing Intervention: [facility] Precuations Flowsheets (Taken 11/12/2024 1621) [facility] Fall Precautions: yes [facility]01-20-2025 Nurse Note* Nursing Notes - Annalee Lindsay RN - 11/12/2024 4:23 PM EST No change noted from previous assessment by this RN unless otherwise detailed in coordinating flow sheets. Patient denies any needs at this time. [facility]01-20-2025 Hospital Discharge instructions* Medications* Annalee Lindsay RN - 11/12/2024 3:21 PM EST Medications: > Patients will be sent home with prescriptions, including medication for pain to be taken as directed. Stay ahead and do not allow your pain to get out of control. > If prescribed Aspirin, take twice a day for 30 days. Do not skip a dose, this is your medication for the prevention of blood clots. > If you have not had a bowel movement by your 3rd post-operative day you will need to use a gentle over the counter laxative such as Milk of magnesia, Fiberlax, Miralax, etc. Bowels need to move within 3 days or take action. * Discharge Instr - Activity* Annalee Lindsay RN - 11/12/2024 3:20 PM EST Ambulate with wheeled walker until follow up appointment or directed by Dr. Blackwood. Ambulation: > Weight bearing status : weight bearing as tolerated > If you have a specific weight bearing limitation such as non-weight bearing, touch down or partial please take note: This weight bearing status must be followed until instructed otherwise on your 3 week follow-up visit in Dr Blackwood's office. * Discharge Instr - Diet* Annalee Lindsay RN - 11/12/2024 3:20 PM EST Diet: Resume diet tolerated. * Discharge Instr - Notify* Annalee Lindsay RN - 11/12/2024 3:[address] Blackwood's office number is [phone], option #2 for the nurse. We want to hear from you if you are having any concerns related to the surgery. If after hours, please be assured that we are still available to you! Simply contact the [facility] hospital number, and ask for Dr. Blackwood's on-call provider. You will be in touch with a provider within 30 minutes. Common reasons to contact us: > Redness, drainage or swelling at the incision site that is out of the ordinary from post-operative findings. Minor redness, bruising, swelling and warmth around the entire joint are common post-operatively. Some scant/scattered drainage can be normal as well. If it is persistent, or greater than the size of a dime, call us. >If applicable to your surgery, please contact us at any time if there is a concern with the drain or ONQ pump. This includes any concerning bleeding around the site, disconnection of the tubing, malfunctioning of the drain or pump, concern for drain appearance, etc. Please also alert us to any problems with drain removal or concerns post-removal, including inability to remove or continued drainage after removal. >If you had a total knee replacement and your ROM is < 90 degrees upon admission to home health or at any time during recovery period (unless specifically limited per the providers). > Any falls or injuries > Patient non-compliance with assistive devices during gait > Fever that is > 101 degrees. For low grade fevers use Incentive Spirometry @ 10 puffs per hour and Tylenol as directed * Discharge Instr - Wound Care* Annalee Lindsay RN - 11/12/2024 3:20 PM EST Your incision is closed with Dermabond, this is a skin glue that will come off in time. You may shower with this, however, do NOT saturate or submerge extremity in water (i.e. Bathtub, hot tub, etc.)until cleared by the provider. At one week post op you may begin directly washing the incision. A big concern with this is cross contamination with a dirty part of the body, so we advise to do this with a clean cotton wash cloth and Dial antibacterial soap. Please do not scrub the incision, simply make 3-4 one directional passes down it. Rinse it well. Pat your incision dry, do not rub your incision with a towel. Do not place any lotions, ointments, creams or powder on your incision or operative leg until cleared by the provider. Do not pick at the glue. When applying your new ABD pad after showering as a reminder do not place any tape over you ABD pad. Your saji hose are to hold your pad inplace. When to call us: If you have any concerns regarding your incision, please contact the officeimmediately. This includes areas of redness, drainage, or concerns for opening in the incision. Saji Hose: > Help reduce the risk of blood clots and decrease swelling > To be worn bilaterally to the lower extremities for 30 days post-op > Patients can take their saji hose off for 1 hour for every 8 hours that they wear them You will be discharged with two pairs of SAJI hose. Gel Ice Packs > Change every 4 hours or as needed for swelling and pain for at least the first 2 weeks You will be discharged with six ice gel packs, and one ice gel compression wrap. Dressings: ABD pads You will be discharged with a box of ABD pads. DRAINS: On-Q-Ball For Knee Replacements: > Physical therapy 3 times per week for 6 full weeks > Maintain uninterrupted therapy if transitioning from home therapy to outpatient therapy > No therabands over your wound/incision > Patients should be doing home exercises on days they are not working with a therapist > Do not rest with a pillow under the knee, work on flexion and extension exercises to improve range of motion Anesthesia Precautions & Expectations: After anesthesia, rest for [address], drink alcoholic beverages or make any important decisions during this time. General anesthesia may cause a sore throat, jaw discomfort or muscle aches. These symptoms can last for one or two days. Additional Instructions: ON Q PAIN RELIEF SYSTEM You have been provided with an educational handout about your On-Q Pain Relief System. Things to remember: 1.) The ball is NOT filled with narcotics. It is filled with numbing medication called Ropivacaine which is simply numbing the nerves around the knee. 2.) Your ON Q pump is set at 2 ml per hour. As your initial nerve block wears off, you can increaseyour ON-Q to 4 to 6ml per hour for pain control. For severe pain you may increase to 8ml per hour or higher for 1 hour, then turn your ON Q back down to 4 to 6 ml per hour. 3.) Pump MUST be in black eric pack and worn around the neck, shoulder, or abdomen during therapy or ambulation. This is to ensure that pump doesn't fall and dislodge the catheter. 4.) Do NOT squeeze the ball. 5.) Leaking at the catheter site is normal. Do not be alarmed; just use a paper towel or dry wash cloth to absorb the fluid. 6.) Taking a sponge bath is preferred while having the ON-Q ball in place. 7.) Do not drive 8.) Follow the instructions to remove your ON-Q ball on the ON-Q Catheter Removal Sheet. Once catheter is removed, place a band aid over the incision site. Remove the On-Q ball 7 days after discharge, or when it is empty. 9.) Once the catheter is removed it is NOT reusable, throw the ball away in the trash. As a patient you may be concerned about receiving too much local anesthetic medication; however, the pump has been preset specifically for you. It is unlikely that you will receive too much medicine from the pump. However, if you were to get too much medication it might cause ringing in your ears, blurred vision, mouth or tongue numbness, ora metallic taste. You might feel nervous or confused. If you experience any of these symptoms, clamp the tubing and call the number provided below. If you have questions or concerns call the 24 Hour Product Support Hotline at * Attachments The following attachments cannot be sent through Care Everywhere. * Acetaminophen ([place]) * Aspirin ([place]) * celecoxib ([place]) * Docusate Oral Capsule (DOCUSATE - ORAL) ([place]) * naloxone (nasal) ([place]) * oxycodone ([place]) * multivitamins and minerals ([place]) [facility]* Nursing Notes - Annalee Lindsay RN - 11/12/2024 2:25 PM EST Patient returned from recovery. Patient's vitals and assessment stable at this time. Patient drowsyand in pain. Patient medicated per DEC. Patient denies any other needs at this time. [facility] Nurse Note* Nona Acharya RN - 11/12/2024 2:07 PM EST Patient transferred to room 3754 via bed in stable condition. Report given to REINIER Mantilla. Bed left inlocked and lowest position with side rails up x3. Call light given to patient. Monitors and alarms on and attached to patient. * Graciela Torres RN - 11/12/2024 1:35 PM EST Patient transported to PACU recovered and stable with ROMAN Mckeon and RN Single Pass Soil Stabilizer Operator. Hand over given to REINIER Castellano at 1347H * Graciela Torres RN - 11/12/2024 11:52 AM EST OR 2 Temperature:66.4F Humidity: 40.1% documented in this [facility] [place]01-20-2025 Nurse Surgical operation note* Nona Acharya RN - 11/12/2024 2:07 PM EST Patient transferred to room 3754 via bed in stable condition. Report given to REINIER Mantilla. Bed left inlocked and lowest position with side rails up x3. Call light given to patient. Monitors and alarms on and attached to patient. [facility]01-20-2025 Nurse Surgical operation note* Graciela Torres RN - 11/12/2024 1:35 PM EST Patient transported to PACU recovered and stable with ROMAN Mckeon and RN Single Pass Soil Stabilizer Operator. Hand over given to REINIER Castellano at 1347H [facility]01-20-2025 Nurse Surgical operation note* Graciela Torres RN - 11/12/2024 11:52 AM EST OR 2 Temperature:66.4F Humidity: 40.1% [facility]01-20-2025 Nurse Note* Nursing Notes - Annalee Lindsay RN - 11/12/2024 10:20 AM EST Pt arrived to unit and oriented to unit policies, tv, phone, call light, bed and room. Pt assessed and stable at this time. Pre-op orders and checklist completed. Patient denies any needs at this time. On admission to [facility], from home a dual RN initial assessment of skin condition was performed by Annalee Lindsay RN and Rosalee Jean RN. Skin Assessment: Skin within defined limits:Yes Chinedu Score: 19 LDA Added:No Annalee Lindsay RN [facility]01-09-2025 History of Present illness Narrative* Fernie Paredes DO - 11/01/2024 2:30 PM EST Subjective History of Present Illness HISTORY OF PRESENT ILLNESS: 64 y.o. female presents with complaints of: Encounter Diagnoses Name Primary? Type 2 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 disease, without long-term current use of insulin Yes Hyperlipidemia LDL goal <70 Hyperthyroidism Hypertriglyceridemia Hypomagnesemia Hypoproteinemia Idiopathic chronic gout without tophus, unspecified site Vitamin D deficiency Hepatomegaly Odynophagia Gastroesophageal reflux disease without esophagitis Folate deficiency Fatty liver Esophagitis, Clyo grade A Esophageal stenosis Duodenal diverticulum Chronic gastritis without bleeding, unspecified gastritis type B12 deficiency PVC's (premature ventricular contractions) Presence of Watchman left atrial appendage closure device Paroxysmal atrial fibrillation PAC (premature atrial contraction) Ischemic stroke Internal and external hemorrhoids without complication Hypertensive heart disease without heart failure Essential hypertension Cerebrovascular accident (CVA), unspecified mechanism Central retinal artery occlusion of left eye Bradycardia Bilateral carotid artery stenosis-30% Right, 60% Left Atherosclerosis of abdominal aorta Pulmonary emphysema, unspecified emphysema type PERCY on CPAP-Off BiPAP due to intolerance Non-seasonal allergic rhinitis, unspecified trigger Moderate persistent asthma without complication Hiatal hernia Chronic sinusitis, unspecified location Chronic obstructive pulmonary disease, unspecified COPD type Iron deficiency anemia, unspecified iron deficiency anemia type Left renal stone Mixed stress and urge incontinence Stage 3a chronic kidney disease Renal cyst, right Uterine leiomyoma, unspecified location CLL (chronic lymphocytic leukemia) Elevated LFTs Chronic anticoagulation Fatigue, unspecified type Fatty food intolerance Bilateral dry eyes 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 Macrocytosis Hyponatremia Insomnia, unspecified type Irregular astigmatism of right eye Low HDL (under 40) Myopia of right eye Orthostasis Obesity (BMI 30.0-34.9) Presbyopia Pseudophakia of both eyes Sacroiliitis Vision loss of left eye Anxiety and depression ASCUS of cervix with negative high risk HPV Seborrheic keratosis, inflamed-Left thigh-S/P Excision Spondylosis of lumbar region without myelopathy or radiculopathy Spondylosis of cervical region without myelopathy or radiculopathy Spinal stenosis of lumbar region without neurogenic claudication Primary osteoarthritis of left knee Primary osteoarthritis of both knees Primary osteoarthritis of both hips-Mild Other idiopathic scoliosis, lumbar region Osteopenia determined by x-ray HNP (herniated nucleus pulposus), lumbar-Multi level Unspecified amblyopia, right eye Regular astigmatism of left eye Posterior capsular opacification non visually significant, both eyes-L>R PCO (posterior capsular opacification), left Pinguecula of both eyes Other optic atrophy, left eye Calcification of aorta Lacunar infarction Hypermetropia of left eye Combined forms of age-related cataract, bilateral Allergic conjunctivitis of both eyes Blepharitis of upper eyelids of both eyes, unspecified type Chronic midline low back pain without sciatica Former smoker-Quit 2011 History of cataract extraction, unspecified laterality History of [id number] 09-30-2020 History of ETOH abuse Family history of hypertension in mother Family history of Alzheimer's disease-Father S/P total knee arthroplasty, right S/P unilateral salpingo-oophorectomy Type 2 DM, CKD-3a, CLL, B12 deficiency and RUTH. Non Smoker, former. Having left total knee arthroplasty on 11-12-[address] Blackwood and needs pre-op clearance. Has been cleared by Dr. Davison, Dr. Calderon and Brian Brush. Non Smoker, former. Recent GFR 67, LFT's up some, Glucose 151, A1C 5.9. All other labs WNL. +Occasional odynophagia. Recent EGD showed small hiatal hernia. Left sided blindness. +Intermittent moderate to severe, left knee pain. +Occasional orthostasis with rapid positional changes. No C.P., SOB, Edema, Palpitations, Dizziness, Fatigue, GERD, Melena, Hematochezia, Dysuria, or Frequency. All others negative on ROS. Objective Review of Systems Constitutional: Negative for fatigue and unexpected weight change. HENT: Positive for trouble swallowing. Negative for voice change. Eyes: Positive for visual disturbance (Left). Respiratory: Negative for shortness of breath. Cardiovascular: Negative for chest pain, palpitations and leg swelling. Gastrointestinal: Negative for abdominal pain and blood in stool. No GERD Genitourinary: Negative for dysuria and frequency. Musculoskeletal: Positive for arthralgias (Left knee, moderate to severe). Neurological: Positive for light-headedness (with rapid poisitonal changes). Negative for dizziness, weakness and numbness. Psychiatric/Behavioral: Negative for dysphoric mood and sleep disturbance. The patient is not nervous/anxious. All other systems reviewed and are negative. Psych Review of Symptoms: Depressive Symptoms: No fatigue. Vitals: Blood pressure 130/68, pulse 73, temperature 97.1 F (36.2 C), resp. rate 16, height 1.651 m(5' 5), weight 97.9 kg (215 lb 14.4 oz), SpO2 96%, not currently . Physical Exam Vitals and nursing note reviewed. Constitutional: General: She is not in acute distress. Appearance: Normal appearance. She is obese. She is not ill-appearing. HENT: Head: Normocephalic and atraumatic. Nose: No congestion. Eyes: General: No scleral icterus. Right eye: No discharge. Left eye: No discharge. Extraocular Movements: Extraocular movements intact. Conjunctiva/sclera: Conjunctivae normal. Pupils: Pupils are equal, round, and reactive to light. Pulmonary: Effort: Pulmonary effort is normal. Breath sounds: No wheezing or rhonchi. Abdominal: General: Abdomen is flat. Bowel sounds are normal. There is no distension. Tenderness: There is no abdominal tenderness. Musculoskeletal: General: Normal range of motion. Cervical back: Normal range of motion and neck supple. No rigidity. No muscular tenderness. Right lower leg: No edema. Left lower leg: No edema. Skin: Coloration: Skin is not jaundiced. Findings: No bruising, erythema or rash. Neurological: General: No focal deficit present. Mental Status: She is alert and oriented to person, place, and time. Mental status is at baseline. Psychiatric: Mood and Affect: Mood normal. Behavior: Behavior normal. Thought Content: Thought content normal. Judgment: Judgment normal. Neurological Exam Mental Status Alert. Oriented to person, place, and time. Cranial Nerves CN III, IV, : Extraocular movements intact bilaterally. Pupils equal round and reactive to light bilaterally. Assessment and Plan Pre-op clearance given from a medical standpoint for the planned procedure on 11-12-[address] Blackwood, pending clearance also from Yumiko Reyna and Brian Brush and she should hold ASA starting 11-05-24 and avoid ALL NSAIDS post-operatively and clearance faxed to Dr. Blackwood. COVID-19, Arexvyand Shingrix vaccines declined. Risks discussed. Alaina 11-12-[address] Blackwood for left total knee arthroplasty. Check swallowing eval on 11-29-[address] [facility] [address] Emlich. Check fasting, well hydrated labs, A1C, UA, Vit D, Mg, PTH, Fe, B12, Folate, Free T4, UA CR and UA for micro-albumin on approx. 12-24-24 at [facility] lab. Alaina 12-31-24 as prior scheduled, and will order 2 year repeat Carotid Dopplerwhich prior showed 30% stenosis bilaterally in , sooner prn. Alaina 01-02-[address] Philip at [facility], and q 12 months. Alaina PAP in 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. Alaina 3-D Mammogram and DEXA in . Alaina 04-02-[address] Ciro Lyles. Alaina with CARO Guzman and we will call for last notes [id number]. Aliana 09-11-[address] Naty Bhakta, Oncology at [facility]. Alaina 10-30-[address] Davison. Alaina with Dr. Brian Brush for Watchman alaina. Alaina 11-06-[address] Calderon. Will give Prevnar-20in . Total time spent 48 minutes, excluding tests and procedures. Diet and lifestyle counseling was given, and care coordinated. Advanced primary care management services(APCM) reviewed and verbal consent given. OARRS report was received and assessed, and is consistent with the medications prescribed. Thank you for choosing Dr. Fernie [facility]aredes s [facility]. The patients' entire past medical, surgical, family, social history, allergies, medications, recent labs, recent imaging and [employer] commerce consultant letters were reviewed and updated. ASSESSMENT & PLAN: Encounter Diagnoses Name Primary? Type 2 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 disease, without long-term current use of insulin Yes Hyperlipidemia LDL goal <70 Hyperthyroidism Hypertriglyceridemia Hypomagnesemia Hypoproteinemia Idiopathic chronic gout without tophus, unspecified site Vitamin D deficiency Hepatomegaly Odynophagia Gastroesophageal reflux disease without esophagitis Folate deficiency Fatty liver Esophagitis, Clyo grade A Esophageal stenosis Duodenal diverticulum Chronic gastritis without bleeding, unspecified gastritis type B12 deficiency PVC's (premature ventricular contractions) Presence of Watchman left atrial appendage closure device Paroxysmal atrial fibrillation PAC (premature atrial contraction) Ischemic stroke Internal and external hemorrhoids without complication Hypertensive heart disease without heart failure Essential hypertension Cerebrovascular accident (CVA), unspecified mechanism Central retinal artery occlusion of left eye Bradycardia Bilateral carotid artery stenosis-30% Right, 60% Left Atherosclerosis of abdominal aorta Pulmonary emphysema, unspecified emphysema type PERCY on CPAP-Off BiPAP due to intolerance Non-seasonal allergic rhinitis, unspecified trigger Moderate persistent asthma without complication Hiatal hernia Chronic sinusitis, unspecified location Chronic obstructive pulmonary disease, unspecified COPD type Iron deficiency anemia, unspecified iron deficiency anemia type Left renal stone Mixed stress and urge incontinence Stage 3a chronic kidney disease Renal cyst, right Uterine leiomyoma, unspecified location CLL (chronic lymphocytic leukemia) Elevated LFTs Chronic anticoagulation Fatigue, unspecified type Fatty food intolerance Bilateral dry eyes 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 Macrocytosis Hyponatremia Insomnia, unspecified type Irregular astigmatism of right eye Low HDL (under 40) Myopia of right eye Orthostasis Obesity (BMI 30.0-34.9) Presbyopia Pseudophakia of both eyes Sacroiliitis Vision loss of left eye Anxiety and depression ASCUS of cervix with negative high risk HPV Seborrheic keratosis, inflamed-Left thigh-S/P Excision Spondylosis of lumbar region without myelopathy or radiculopathy Spondylosis of cervical region without myelopathy or radiculopathy Spinal stenosis of lumbar region without neurogenic claudication Primary osteoarthritis of left knee Primary osteoarthritis of both knees Primary osteoarthritis of both hips-Mild Other idiopathic scoliosis, lumbar region Osteopenia determined by x-ray HNP (herniated nucleus pulposus), lumbar-Multi level Unspecified amblyopia, right eye Regular astigmatism of left eye Posterior capsular opacification non visually significant, both eyes-L>R PCO (posterior capsular opacification), left Pinguecula of both eyes Other optic atrophy, left eye Calcification of aorta Lacunar infarction Hypermetropia of left eye Combined forms of age-related cataract, bilateral Allergic conjunctivitis of both eyes Blepharitis of upper eyelids of both eyes, unspecified type Chronic midline low back pain without sciatica Former smoker-Quit 2011 History of cataract extraction, unspecified laterality History of [id number] 09-30-2020 History of ETOH abuse Family history of hypertension in mother Family history of Alzheimer's disease-Father S/P total knee arthroplasty, right S/P unilateral salpingo-oophorectomy No orders of the defined types were placed in this encounter. There are no discontinued medications. Current Outpatient Medications Medication Sig Dispense Refill Albuterol (Ventolin HFA) 108 (90 Base) MCG/ACT Aero Soln inhaler Inhale 2 puffs every 6 hours as needed for Wheezing. 18 g 0 Allopurinol 100 MG tablet Take 1 tablet by mouth daily. (Patient taking differently: Take 1 tablet by mouth daily. AM) 90 tablet 3 Aspirin (SB Low Dose ASA EC) [address] tablet Take 1 tablet by mouth daily with breakfast. OTC buPROPion (Wellbutrin XL) 300 MG tablet XL Take 1 tablet by mouth every morning before breakfast. Cancel previous refills 90 tablet 0 carveDILOL (Coreg) 12.5 MG tablet Take 1 tablet by mouth 2 times daily with meals. Cancel previous refills 180 tablet 0 Cetirizine 10 MG tablet Take 1 tablet by mouth daily. OTC cyanocobalamin 1000 MCG tablet Take 1 tablet by mouth daily. Chew 1 tab q daily. Cancel previous refills 90 tablet 0 Escitalopram (Lexapro) 10 MG tablet Take 1 tablet by mouth daily. Cancel previous refills 90 tablet0 Evolocumab (Repatha SureClick) 140 MG/ML Solution Auto-injector injection Inject 1 mL under the skin every 14 days. SATURDAYS 6 mL 3 fenofibrate 160 MG tablet Take 1 tablet by mouth daily. Cancel previous refills 90 tablet 0 fluticasone (Flonase Allergy Relief) 50 MCG/ACT Suspension nasal spray 2 sprays by Nasal route daily as needed. OTC Folic acid 1 MG tablet Take 1 tablet by mouth daily. Cancel previous refills 90 tablet 0 Lisinopril 5 MG tablet Take 1 tablet by mouth daily. Cancel previous refills 90 tablet 0 magnesium oxide 400 (240 Mg) MG Take 1 tablet by mouth 2 times daily with meals. Pantoprazole (Protonix) [address] tablet DR Take 1 tablet by mouth 2 times daily (take before meals). Cancel previous refills 180 tablet 0 traZODone 100 MG tablet Take 1 tablet by mouth at bedtime. Cancel previous refills 90 tablet 0 triamterene-hydrochlorothiazide (Dyazide) 37.5-25 MG per capsule Take 1 capsule by mouth daily. Cancel previous refills 90 capsule 0 No current facility-administered medications for this visit. Counseling given: No Follow up appointment(s) have been discussed with the patient. The patient is given an After Visit Summary sheet that lists all of their medications with directions, their allergies, orders placed during this encounter, immunization dates, and follow- up instructions. Fernie Paredes DO [address] [id number] This note is electronically signed in the electronic medical record. documented in this [facility] [place]01-09-2025 Instructions* Patient Instructions* Fernie Paredes DO - 11/01/2024 2:30 PM EST Do fasting, well hydrated labs on approx. 12-24-24 documented in this [facility] [place]01-08-2025 History of Present illness Narrative* Fernando Davison MD - 10/31/2024 1:00 PM EST DAILY PROGRESS NOTE Admit Date: (Not on file) Date of Evaluation: :26 PM [facility] IMPRESSION AND PLAN: 63 y/o female with history of CKD III, CLL, depression, and CVA is here for CKD care. 1) CKD II Cr 1.05 -> 0.81 -> 0.88 -> 0.90 Urine pr/cr 0.1 Urine Na 98 Renal US disclosed no evidence of an intrarenal mass or hydronephrosis. Multiple echogenic foci in the left kidney are typical of calculi. The urinary bladder appears unremarkable. Will get UA Will get renal panel. 2) HTN SBP 120s -> 100s Continue with lisinopril and Hydrochlorothiazide. 3) Gout Uric acid 8.4 -> 5.4 Continue with allopurinol 4) Transaminitis ALT 37 -> 25 -> 70 / AST 41 -> 27 -> 51 CT abd disclosed hepatic steatosis with mild enlargement of the left lobe and the caudate lobe. Small right simple renal cyst with a proteinaceous/hemorrhagic cyst in the midpole right kidney. Small faint enhancing focus in the uterine body could represent a small fibroid. No suspicious adnexal mass or pelvic free fluid. SUBJECTIVE: Patient seen and examined. Chart, medications, labs reviewed. Notes/Results Only on 10/15/2024 Component Date Value Ref Range Status WBC, URINE 10/15/2024 '5 TO 10 NEGATIVE /HPF Final RBC, URINE 10/15/2024 NEGATIVE NEGATIVE /HPF Final Epithelial Cells UA 10/15/2024 10 TO 20 /HPF Final Mucus 10/15/2024 NEGATIVE NEGATIVE Final BACTERIA, URINE 10/15/2024 2+ (A) NEGATIVE Final CRYSTALS, URINE 10/15/2024 NONE NONE Final CASTS, URINE 10/15/2024 NONE NONE /LPF Final COMMENT, URINE 10/15/2024 POSSIBLY CONTAMINATED SPECIMEN, CULTURE MUST BE ORDERED SEPARATELY IF DEEMED NECESSARY. Final LABS Labs-ABGs @ABGROUNDS@ Labs-CBC @CBCBRIEFROUNDS@ Labs-Chem 7(PMC) @[facility]@ Labs-Coags WBC (WHITE BLOOD COUNT) Date Value Ref Range Status 10/15/2024 4.4 3.6 - 11.0 10*3/uL Final 07/09/2024 5.4 3.6 - 11.0 10*3/uL Final WBC Count Date Value Ref Range Status 09/19/2024 5.46 Male: 3.73-10.10, Female: 3.99-11.19 K/uL Final HEMOGLOBIN (HGB) Date Value Ref Range Status 10/15/2024 13.1 12.0 - 16.0 G/DL Final 07/09/2024 12.0 12.0 - 16.0 G/DL Final Hemoglobin Date Value Ref Range Status 09/19/2024 13.0 (L) Male: 13.4-16.8, Female: 11.4-15.2 g/dL Final HEMATOCRIT (HCT) Date Value Ref Range Status 10/15/2024 39.4 36.0 - 48.0 % Final 07/09/2024 35.5 (L) 36.0 - 48.0 % Final Hematocrit Date Value Ref Range Status 09/19/2024 37.8 (L) Male: 39.6-48.8, Female: 34.9-44.3 % Final Platelet Count Date Value Ref Range Status 09/19/2024 208 Male: 146-337, Female: 150-393 K/uL Final PLATELET COUNT Date Value Ref Range Status 10/15/2024 201 130 - 400 10*3/uL Final 07/09/2024 200 130 - 400 10*3/uL Final SODIUM Date Value Ref Range Status 10/15/2024 139 137 - 145 MMOL/L Final 07/09/2024 136 (L) 137 - 145 MMOL/L Final Sodium Date Value Ref Range Status 09/19/2024 136 135 - 145 mmol/L Final CHLORIDE Date Value Ref Range Status 10/15/2024 104 98 - 107 MMOL/L Final Comment: Please note: Triglyceride levels of 600mg/dL or higher may positively bias chloride results by approximately 2.1 mmol 07/09/2024 104 98 - 107 MMOL/L Final Comment: Please note: Triglyceride levels of 600mg/dL or higher may positively bias chloride results by approximately 2.1 mmol Chloride Date Value Ref Range Status 09/19/2024 98 98 - 108 mmol/L Final BUN Date Value Ref Range Status 10/15/2024 13 7 - 20 MG/DL Final 09/19/2024 9 7 - 25 mg/dL Final 07/09/2024 17 7 - 20 MG/DL Final Potassium Date Value Ref Range Status 10/15/2024 4.0 3.5 - 5.1 MMOL/L Final 09/19/2024 4.0 3.5 - 5.0 mmol/L Final 07/09/2024 4.0 3.5 - 5.1 MMOL/L Final Creatinine Date Value Ref Range Status 09/19/2024 0.97 Male: 0.7-1.3, Female: 0.5-1.2 mg/dL Final CREATININE SERUM Date Value Ref Range Status 10/15/2024 0.90 0.70 - 1.20 MG/DL Final 07/09/2024 1.05 0.70 - 1.20 MG/DL Final Glucose Date Value Ref Range Status 10/15/2024 151 (H) 70 - 100 MG/DL Final Comment: NORMAL <100 mg/dL PREDIABETES 101-126 mg/dL DIABETES 126 mg/dL or higher 09/19/2024 125 (H) 70 - 99 mg/dL Final 07/09/2024 123 (H) 70 - 100 MG/DL Final Comment: NORMAL <100 mg/dL PREDIABETES 101-126 mg/dL DIABETES 126 mg/dL or higher PT Date Value Ref Range Status 10/15/2024 13.2 11.8 - 14.4 SEC Final 04/21/2023 14.0 11.8 - 14.4 SEC Final 08/09/2022 13.4 11.8 - 14.4 SEC Final PTT Date Value Ref Range Status 08/09/2022 29.5 22.4 - 34.7 SEC Final Comment: CARDIAC AND PE/DVT THERAPUTIC RANGE 69-97 SEC VASCULAR/THREATENED LIMB THERAPUTIC RANGE 80-112 SEC Testing performed at [place], [place] [address] PROTEIN, TOTAL Date Value Ref Range Status 10/15/2024 6.8 6.3 - 8.2 GM/DL Final 07/09/2024 6.8 6.3 - 8.2 GM/DL Final Total Protein Date Value Ref Range Status 09/19/2024 7.1 6.4 - 8.3 g/dL Final Albumin Date Value Ref Range Status 10/15/2024 4.3 3.5 - 5.0 G/dl Final 09/19/2024 4.2 Male: 3.5-5.0, Female: 3.5-5.0 g/dL Final 07/09/2024 4.1 3.5 - 5.0 G/dl Final AST Date Value Ref Range Status 10/15/2024 51 (H) 14 - 36 IU/L Final 09/19/2024 23 Male: 10-39, Female: 10-39 U/L Final 07/09/2024 37 (H) 14 - 36 IU/L Final ALT Date Value Ref Range Status 10/15/2024 70 (H) <35 IU/L Final 09/19/2024 26 Male: 10-52, Female: 9-48 U/L Final 07/09/2024 27 <35 IU/L Final BILIRUBIN, TOTAL Date Value Ref Range Status 10/15/2024 0.4 0.2 - 1.3 MG/DL Final CALCIUM Date Value Ref Range Status 10/15/2024 9.8 8.4 - 10.2 MG/DL Final 07/09/2024 9.5 8.4 - 10.2 MG/DL Final Calcium Date Value Ref Range Status 09/19/2024 9.5 8.6 - 10.5 mg/dL Final PHOSPHORUS Date Value Ref Range Status 10/22/2023 3.0 2.5 - 4.5 MG/DL Final 04/21/2023 3.7 2.5 - 4.5 MG/DL Final MAGNESIUM Date Value Ref Range Status 07/16/2024 1.6 1.6 - 2.3 MG/DL Final 07/09/2024 1.5 (L) 1.6 - 2.3 MG/DL Final 01/19/2024 1.8 1.6 - 2.3 MG/DL Final Lab Results Component Value Date CREATURINE 78.8 07/09/2024 CREATURINE 79.6 07/09/2024 CREATSERUM 0.90 10/15/2024 BUN 13 10/15/2024 SODIUM 139 10/15/2024 POTASSIUM 4.0 10/15/2024 CHLORIDE 104 10/15/2024 CO2 30 10/15/2024 ROS: Constitution: No fever, no chill HEENT: No headache, no sinus issues CV: No chest pain, no palpitation Lung: No cough, No SOB Abd: No diarrhea, no constipation Neuro: No seizure, no loss of consciousness Heme: No bleeding, no bruise PHYSICAL EXAM: Wt Readings from Last 3 Encounters: 10/31/24 98.6 kg (217 lb 6.4 oz) 10/31/24 97.3 kg (214 lb 8 oz) 10/29/24 97.5 kg (215 lb) Temp Readings from Last 3 Encounters: 10/29/24 97.1 F (36.2 C) (Temporal) 10/09/24 97.1 F (36.2 C) 09/19/24 97.1 F (36.2 C) (Infrared) BP Readings from Last 3 Encounters: 10/31/24 100/62 10/31/24 130/79 10/29/24 156/70 Pulse Readings from Last 3 Encounters: 10/31/24 57 10/31/24 54 10/29/24 52 Gen: NAD, lying in bed, conversant HEENT: Atraumatic, PERRLA, moist membrane CV: RRR, nl S1 and S2, no m/g/r Lung: CTAB, no wheezing, no crackle Abd: +BS, nontender, no distended Ext: No rash, no clubbing, no cyanosis. No edema. Neuro: CNII-XII grossly intact, 5/5 strength, normal tone Skin: Warm and dry documented in this encounterProm[facility] History of Present illness Narrative* Rose Mary Zepeda MA - 10/29/2024 2:15 PM EST Message sent to help desk to delete the EKG performed today due to a malfunction in EKG equipment. documented in this [id number] History of Present illness Narrative* Brian Brush CNP - 10/29/2024 1:[address] [facility] STRUCTURAL CARDIOLOGY CLINIC NOTE HISTORY OF PRESENT ILLNESS Ms. Elena Galeano is a 64 y.o. pleasant female with a history of paroxysmal atrial fibrillation, hypertension, history of stroke who presents today for her 1-year post LAAO procedure with Dr. Christie. Patient's medical comorbidity also includes CLL, NHL (nodular histiocytic lymphoma), chronic anemia Current Outpatient Medications Medication Instructions aspirin 81 mg, Daily buPROPion (WELLBUTRIN XL) 300 mg, Oral, Every morning before breakfast carvediloL (COREG) 12.5 mg, 2 times daily with meals cetirizine (ZYRTEC) 10 mg, Daily clopidogreL (PLAVIX) 75 mg tablet Take 300 mg (4 tablets) the evening prior to procedure, then take75 mg (1 tablet) once daily starting the morning of your procedure. escitalopram oxalate (LEXAPRO) 20 mg, Daily fenofibrate 160 mg, Daily folic acid (FOLVITE) 1 mg, Daily lisinopriL (PRINIVIL,ZESTRIL) 5 mg, Daily losartan (COZAAR) 25 mg, Daily pantoprazole (PROTONIX) 40 mg, Daily Praluent Pen 75 mg/mL injection 1 mL, Every 21 days traZODone (DESYREL) 100 mg, Nightly PRN triamterene-hydrochlorothiazide (DYAZIDE) 37.5-25 mg per capsule 1 capsule, Daily CARDIOVASCULAR & METABOLIC PROBLEMS PAFIB-LAAO 24 mm Watchman FLX 11/24/2023 Hypertension History of stroke CLL NHL Chronic anemia ASSESSMENT & PLAN: pleasant 64-year-old female who follows with primary gravity prospecting observer helper Dr. Calderon with [facility] cardiology. She is status post 1-year LAAO [address] Dr. Christie on 11/24/2023. She has been compliant with her single antiplatelet therapy, Dyazide, Praluent, lisinopril, fenofibrate, carvedilol. From a cardiovascular standpoint she is doing well, has no complaints of chest pain shortness of breath orthopnea PND lightheadedness dizziness palpitation peripheral edema near syncope/syncope. She did undergo an upper endoscopy this morning showing a 1 cm hiatal hernia no other findings for early satiety and symptoms of food getting stuck. She states that she is on Protonix 40 mg twice a day.She has been taking this medication with food. No specimens obtained on the endoscopy. On physical exam she is euvolemic. Continue medications the same. EKG attempted to be performed today with machine not working correctly. Will not charge patient forEKG. CBC with differential and BMP today RTC 1 year structural heart clinic Continue to follow with [facility] cardiology for primary cardiology needs. CARDIAC DIAGNOSTICS Attempted ECG tracing but machine and wires are not functioning properly therefore EKG not completed. Unable to cancel order. Not to be charged for EKG. (10/29/2024) ECG (I independently reviewed EKG and revealed, sinus bradycardia, low voltage precordial leads): 05/22/2024 I personally reviewed other available cardiac imagings (i.e. echo, coronary angiography) and summarized findings under assessment above. OBJECTIVES BP 138/67 (BP Location: Right arm, Patient Position: Sitting, BP Cuff Size: Adult) Pulse 61 Ht 5' 5 Wt 97.5 kg (215 lb) SpO2 94% BMI 35.78 kg/m General Appearance: healthy-looking female. Not in acute distress Respiratory: good air entry bilaterally. No wheeze or crackles. Cardiovascular: good peripheral pulses. JVP is flat. Regular rate and rhythm. Normal S1-S2. No murmur/gallop/rub. Abdomen: soft. Non-tender. Non-distended. BRONSON: no peripheral edema. Skin: no rash. No cyanosis. No clubbing of fingers. Brian Brush, MSN, LINTER OPERATOR, RESIDENTIAL CARE OFFICER Interventional Cardiology/Structural Heart Disease Team [facility] documented in this [id number] [facility]OH[facility] STRUCTURAL CARDIOLOGY CLINIC NOTE HISTORY OF PRESENT ILLNESS Ms. Elena Galeano is a 64 y.o. pleasant female with a history of paroxysmal atrial fibrillation, hypertension, history of stroke who presents today for her 1-year post LAAO procedure with Dr. Christie. Patient's medical comorbidity also includes CLL, NHL (nodular histiocytic lymphoma), chronic anemia Current Outpatient Medications Medication Instructions aspirin 81 mg, Daily buPROPion (WELLBUTRIN XL) 300 mg, Oral, Every morning before breakfast carvediloL (COREG) 12.5 mg, 2 times daily with meals cetirizine (ZYRTEC) 10 mg, Daily clopidogreL (PLAVIX) 75 mg tablet Take 300 mg (4 tablets) the evening prior to procedure, then take 75 mg (1 tablet) once daily starting the morning of your procedure. escitalopram oxalate (LEXAPRO) 20 mg, Daily fenofibrate 160 mg, Daily folic acid (FOLVITE) 1 mg, Daily lisinopriL (PRINIVIL,ZESTRIL) 5 mg, Daily losartan (COZAAR) 25 mg, Daily pantoprazole (PROTONIX) 40 mg, Daily Praluent Pen 75 mg/mL injection 1 mL, Every 21 days traZODone (DESYREL) 100 mg, Nightly PRN triamterene-hydrochlorothiazide (DYAZIDE) 37.5-25 mg per capsule 1 capsule, Daily CARDIOVASCULAR & METABOLIC PROBLEMS PAFIB-LAAO 24 mm Watchman FLX 11/24/2023 Hypertension History of stroke CLL NHL Chronic anemia ASSESSMENT & PLAN: astrid 64-year-old female who follows with primary gravity prospecting observer helper Dr. Calderon with [facility] cardiology. She is status post 1-[address] LAAO [address] Dr. Christie on 11/24/2023. She has been compliant with her single antiplatelet therapy, Dyazide, Praluent, lisinopril, fenofibrate, carvedilol. From a cardiovascular standpoint she is doing well, has no complaints of chest pain shortness of breath orthopnea PND lightheadedness dizziness palpitation peripheral edema near syncope/syncope. She did undergo an upper endoscopy this morning showing a 1 cm hiatal hernia no other findings for early satiety and symptoms of food getting stuck. She states that she is on Protonix 40 mg twice a day. She has been taking this medication with food. No specimens obtained onthe endoscopy. On physical exam she is euvolemic. Continue medications the same. EKG attempted to be performed today with machine not working correctly. Will not charge patient for EKG. CBC with differential and BMP today RTC 1 year structural heart clinic [facility]. CARDIAC DIAGNOSTICS Attempted ECG tracing but machine and wires are not functioning properly therefore EKG not completed. Unable to cancel order. Not to be charged for EKG. (10/29/2024) ECG (I independently reviewed EKG and revealed, sinus bradycardia, low voltage precordial leads): 05/22/2024 I personally reviewed other available cardiac imagings (i.e. echo, coronary angiography) and summarized findings under assessment above. OBJECTIVES BP 138/67 (BP Location: Right arm, Patient Position: Sitting, BP Cuff Size: Adult) Pulse 61 Ht 5' 5 Wt 97.5 kg (215 lb) SpO2 94% BMI 35.78 kg/m General Appearance: healthy-looking female. Not in acute distress Respiratory: good air entry bilaterally. No wheeze or crackles. Cardiovascular: good peripheral pulses. JVP is flat. Regular rate and rhythm. Normal S1-S2. No murmur/gallop/rub. Abdomen: soft. Non-tender. Non-distended. BRONSON: no peripheral edema. Skin: no rash. No cyanosis. No clubbing of fingers. Brian Brush, MSN, LINTER OPERATOR, RESIDENTIAL CARE OFFICER Interventional Cardiology/Structural Heart Disease Team [facility] AUTHENTICATED BY BRIAN BRUSH, ON 10/29/2024 14:23:00[facility] [id number] Nurse Note* Blanquita Long RN - 10/29/2024 10:[address] Ellis here to speak with pt again about procedure. * Blanquita Long RN - 10/29/2024 10:55 AM EST Pt has tolerated sitting on side of cart without incident. Denies needs and appears without distress. Getting dressed for discharge home * Blanquita Long RN - 10/29/2024 10:46 AM EST Pt discharge instructions reviewed and provided to pt and with understanding voiced. Deniesneeds and appears without distress. * Blanquita Long RN - 10/29/2024 10:35 AM EST Assisted to sit on side of cart. Denies dizziness or nausea. Appears without distress. * Blanquita Long RN - 10/29/2024 10:25 AM EST Snack given. * Blanquita Lnog RN - 10/29/2024 10:15 AM EST Received to bay. Appears without distress. DR. Ellis here to speak with pt and about results of procedure. documented in this encounterPromedica [facility]01-06-[facility]25 Nurse Surgical operation note* Blanquita Long RN - 10/29/2024 10:[address] Ellis here to speak with pt again about procedure. [facility] Nurse Surgical operation note* Blanquita Long RN - 10/29/2024 10:55 AM EST Pt has tolerated sitting on side of cart without incident. Denies needs and appears without distress. Getting dressed for discharge home [facility]-06-2025 Nurse Surgical operation note* Blanquita Long RN - 10/29/2024 10:46 AM EST Pt discharge instructions reviewed and provided to pt and with understanding voiced. Deniesneeds and appears without distress. [facility]01-06-2025 Nurse Surgical operation note* Blanquita Long RN - 10/29/2024 10:35 AM EST Assisted to sit on side of cart. Denies dizziness or nausea. Appears without distress. [facility]01-06-2025 Nurse Surgical operation note* Blanquita Long RN - 10/29/2024 10:25 AM EST Snack given. [facility]-06-2025 Nurse Surgical operation note* Blanquita Long RN - 10/29/2024 10:15 AM EST Received to bay. Appears without distress. DR. Ellis here to speak with pt and about results of procedure. [facility]12-31-2024 History of Present illness Narrative* Danielle Mccall - 10/23/2024 8:00 AM EST Nurse Note: Review of Systems All other systems reviewed and are negative. Nursing Assessment: Physical Exam Pt is a 64 yo female that presents for iron deficiency anemia Referred by Fernie Paredes, Last Colonoscopy 04/07/2018 Labs 10/15/2024 Last EGD 12/01/2021 * Caitlyn Carpenter LPN - 10/23/2024 8:00 AM EST EGD 10/29 * Delilha Ellis Jr., - 10/23/2024 8:00 AM EST Office consultation Date and Time: December 09, 2024 12:01 PM Patient Demographics: Elena Galeano female 1960 Wt Readings from Last 1 Encounters: 12/05/24 96.3 kg (212 lb 3.2 oz) Chief Complaint: 64-year-old lady here regarding iron-deficiency anemia and questionable dysphasic symptoms Recent laboratory obtained September of 2024 hemoglobin 13 MCV 96.1 platelets 201 AST 51 ALT 70 ferritin is 38 iron is 111 with 25% saturated from again June of 2024 recent most EGD 2021 with questionable empiric dilation she did a colonoscopy in 2018 with 10 year follow-up recommended EGD in 2018 revealed esophagitis Patient is currently on B12 and folic acid replacement and CUCA inhibitor Protonix and an aspirin daily Patient reports solid phase dysphagia but some liquid dysphagia also no relation to particular temperature She denies fevers chills or night sweats Denies weight changes There is no reported significant family history of GI disease She denies melena and/hematochezia Does have an occasional cough which she feels is related to reflux She denies any aspiration symptomatology EGD from November of 2021 revealed a benign-appearing esophageal stenosis this was dilated to a maximum of 18 mm via TTS balloon We discussed structural versus functional bowel disorders We discussed gastroesophageal reflux disease We discussed esophageal dysmotility We discussed her previous endoscopic procedures We discussed ASGE recommendations for colon cancer screening and surveillance based on age family history personal history and ethnicity BP 115/60 Pulse 52 Ht 1.651 m (5' 5) Wt 97.9 kg (215 lb 12.8 oz) SpO2 97% BMI 35.91 kg/m Smoking Status Former Past Medical History: Diagnosis Date A-fib watchman device place per [facility] Arrhythmia Arthritis ASCUS of cervix with negative high risk HPV B12 deficiency Carotid stenosis, bilateral-Right 30%, and left 60% Central retinal artery occlusion of left eye CKD stage 3a, GFR 45-59 ml/min CLL (chronic lymphocytic leukemia) 2012 [id number] on 09-30-2020 Depression Diffuse non-Hodgkin's lymphoma chemotherapy Folate deficiency GERD (gastroesophageal reflux disease) Gout pt denies Hiatal hernia pt denies Hyperlipidemia LDL goal <70 Hypertension Hyponatremia Iron deficiency anemia Non-Hodgkin lymphoma 2012 in remission PERCY (obstructive sleep apnea) PVC's (premature ventricular contractions) 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 (blindness) Type 2 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 disease, without long-term current use of insulin Past Surgical History: Procedure Laterality Date ARTHROPLASTY KNEE TOTAL Left 11/12/2024 Laterality: Left; Surgeon: Gonsalo Blackwood MD; Location: [facility] OR ARTHRODESIS SACROILIAC JOINT MINIMALLY INVASIVE W/ TRANSFIXING DEVICE Right 05/03/2024 Laterality: Right; Surgeon: Isreal Sigala MD; Location: [facility] OR FLUOROSCOPY IN OR Right 05/03/2024 Laterality: Right; Surgeon: Isreal Sigala MD; Location: [facility] OR I&D BURSA FOOT Left 07/08/2023 Laterality: Left; Surgeon: Dawn Uriarte DPM; Location: [facility] OR INJECTION NERVE OTHER PERIPHERAL Left 12/16/2022 Laterality: Left; Surgeon: Isreal Sigala MD; Location: [facility] OR GUIDANCE FLUOROSCOPIC NEEDLE OR CATHETER PLACEMENT FOR SPINE INJECTION ADD-ON PX Left 12/16/2022 Laterality: Left; Surgeon: Isreal Sigala MD; Location: [facility] OR SUSPENSION URETHRA/URETHROVESICAL FEMALE OPEN W/ SYNTHETIC MATERIAL (SLING) Midline 08/31/2022 Laterality: Midline; Surgeon: Dariusz Rangel MD; Location: [facility] OR CYSTOURETHROSCOPY W/ DILATION BLADDER Midline 08/31/2022 Laterality: Midline; Surgeon: Dariusz Rangel MD; Location: [facility] OR COLPORRHAPHY ANTEROPOSTERIOR REPAIR CYSTOCELE & RECTOCELE Midline 08/31/2022 Laterality: Midline; Surgeon: Dariusz Rangel MD; Location: [facility] OR ARTHRODESIS SACROILIAC JOINT MINIMALLY INVASIVE W/ TRANSFIXING DEVICE Left 06/17/2022 Laterality: Left; Surgeon: Isreal Sigala MD; Location: [facility] OR GUIDANCE FLUOROSCOPIC NEEDLE OR CATHETER PLACEMENT FOR SPINE INJECTION ADD-ON PX Left 06/17/2022 Laterality: Left; Surgeon: Isreal Sigala MD; Location: [facility] OR EGD W/ DILATION BALLOON N/A 12/01/2021 Laterality: N/A; Surgeon: Indra Parrish DO; Location: [facility] ENDOSCOPY SHOULDER ARTHROSCOPY Left 06/18/2021 REMOVAL CENTRAL VENOUS ACCESS DEVICE TUNNELED W/ PORT PUMP Left 09/13/2019 Laterality: Left; Surgeon: Eduardo Muñoz MD; Location: [facility] INTERVENTIONAL RADIOLOGY (VIR) EGD W/ DILATION BALLOON N/A 06/30/2018 Laterality: N/A; Surgeon: Indra Parrish DO; Location: [facility] ENDOSCOPY EGD DIAGNOSTIC N/A 04/07/2018 Laterality: N/A; Surgeon: Wilner Leigh MD; Location: [facility] END[facility]COPY COLONOSCOPY DIAGNOSTIC N/A 04/07/2018 Laterality: N/A; Surgeon: Wilner Leigh MD; Location: [facility] ENDOSCOPY KNEE REPLACEMENT Right 05/2015 done at [place]--CC ARTHROPLASTY KNEE TOTAL Right 04/2015 INSERTION PICC W/ PORT PUMP 2014 power port COLONOSCOPY DIAGNOSTIC 2006 SALPINGO-OOPHORECTOMY OPEN N/A 1983 APPENDECTOMY OPEN 1983 TONSILLECTOMY ADENOIDECTOMY 1968 EGD DIAGNOSTIC 10 months ago OTHER SURGICAL Watchman Device -placed 11/24/2023 Social History Socioeconomic History Marital status: Occupational History Employer: RETIRED Tobacco Use Smoking status: Former Current packs/day: 0.00 Average packs/day: 0.8 packs/day for 35.0 years (26.3 ttl pk-yrs) Types: Cigarettes Start date: 04/23/1978 Quit date: 04/23/2013 Years since quittin.6 Smokeless tobacco: Never Vaping Use Vaping status: Never Used Substance and Sexual Activity Alcohol use: Yes Alcohol/week: 3.0 standard drinks of alcohol Types: 3 Cans of beer per week Comment: Hx ETOH abuse Drug use: Never Sexual activity: Not Currently Partners: Male control/protection: Menopause Other Topics Concern Domestic Violence No Social Drivers of Health Financial Resource Strain: Low Risk (11/10/2022) [facility] Overall Financial Resource Strain (CARDIA) Difficulty of Paying Living Expenses: Not hard at all Food Insecurity: No Food Insecurity (11/12/2024) Hunger Vital Sign Worried About Running Out of Food in the Last Year: Never true Ran Out of Food in the Last Year: Never true Transportation Needs: No Transportation Needs (11/12/2024) PRAPARE - Transportation Lack of Transportation (Medical): No Lack of Transportation (Non-Medical): No Intimate Partner Violence: Not At Risk (11/12/2024) Humiliation, Afraid, Rape, and Kick questionnaire Fear of Current or Ex-Partner: No Emotionally Abused: No Physically Abused: No Sexually Abused: No Housing Stability: Low Risk (11/12/2024) Housing Stability Vital Sign Unable to Pay for Housing in the Last Year: No Number of Times Moved in the Last Year: 0 Homeless in the Last Year: No Current Outpatient Medications: Albuterol (Ventolin HFA) 108 (90 Base) MCG/ACT Aero Soln inhaler, Inhale 2 puffs every 6 hours as needed for Wheezing., Disp: 18 g, Rfl: 0 Aspirin (SB Low Dose ASA EC) [address] tablet, Take 1 tablet by mouth daily with breakfast. OTC,Disp: , Rfl: buPROPion (Wellbutrin XL) 300 MG tablet XL, Take 1 tablet by mouth every morning before breakfast. Cancel previous refills, Disp: 90 tablet, Rfl: 0 carveDILOL (Coreg) 12.5 MG tablet, Take 1 tablet by mouth 2 times daily with meals. Cancel previousrefills, Disp: 180 tablet, Rfl: 0 Cetirizine 10 MG tablet, Take 1 tablet by mouth daily. OTC, Disp: , Rfl: cyanocobalamin 1000 MCG tablet, Take 1 tablet by mouth daily. Chew 1 tab q daily. Cancel previous refills, Disp: 90 tablet, Rfl: 0 Escitalopram (Lexapro) 10 MG tablet, Take 1 tablet by mouth daily. Cancel previous refills, Disp: 90 tablet, Rfl: 0 Evolocumab (Repatha SureClick) 140 MG/ML Solution Auto-injector injection, Inject 1 mL under the skin every 14 days. SATURDAYS, Disp: 6 mL, Rfl: 3 fenofibrate 160 MG tablet, Take 1 tablet by mouth daily. Cancel previous refills, Disp: 90 tablet, Rfl: 0 fluticasone (Flonase Allergy Relief) 50 MCG/ACT Suspension nasal spray, 2 sprays by Nasal route daily as needed. OTC, Disp: , Rfl: Folic acid 1 MG tablet, Take 1 tablet by mouth daily. Cancel previous refills, Disp: 90 tablet, Rfl: 0 Lisinopril 5 MG tablet, Take 1 tablet by mouth daily. Cancel previous refills, Disp: 90 tablet, Rfl: 0 magnesium oxide 400 (240 Mg) MG, Take 1 tablet by mouth 2 times daily with meals., Disp: , Rfl: Pantoprazole (Protonix) [address] tablet DR, Take 1 tablet by mouth 2 times daily (take before meals). Cancel previous refills, Disp: 180 tablet, Rfl: 0 traZODone 100 MG tablet, Take 1 tablet by mouth at bedtime. Cancel previous refills, Disp: 90 tablet, Rfl: 0 triamterene-hydrochlorothiazide (Dyazide) 37.5-25 MG per capsule, Take 1 capsule by mouth daily. Cancel previous refills, Disp: 90 capsule, Rfl: 0 Acetaminophen 325 MG tablet, Take 2 tablets by mouth every 6 hours as needed for Mild Pain., Disp: 50 tablet, Rfl: 1 Allopurinol 100 MG tablet, Take 1 tablet by mouth daily., Disp: 90 tablet, Rfl: 3 Amoxicillin 500 MG capsule, Take 4 capsules 1 hour before procedure, Disp: 8 capsule, Rfl: [address] tablet, Take 1 tab twice a day for 30 days. This medication is for blood clot prevention., Disp: 60 tablet, Rfl: 0 Celecoxib 100 MG capsule, Take 1 capsule by mouth 2 times daily., Disp: 60 capsule, Rfl: 0 Docusate 100 MG capsule, Take 1 capsule by mouth 2 times daily., Disp: 60 capsule, Rfl: 0 hydroCODone-acetaminophen 5-325 MG tablet, Take 1-2 tablets by mouth every 8 hours as needed for Severe Pain for up to 7 days. Do not take over 4000mg acetaminophen daily., Disp: 20 tablet, Rfl: 0 naloxone 4 MG/0.1ML, 1 spray by Nasal route once for 1 dose. [place] into the nose as directed. Call 911. If no response in 2 minutes use a new nasal spray in other nostril. Repeat until help arrives.,Disp: 1 Each, Rfl: 0 oxyCODONE 5 MG tablet, Take 1-2 tabs po q 4-6 hours prn pain. Wean as tolerated., Disp: 30 tablet, Rfl: 0 therapeutic multivitamin-minerals tablet, Take 1 tablet by mouth at bedtime., Disp: 30 tablet, Rfl:0 Nsaids ROS: Cardiovascular-no reported chest pain no shortness of breath Respiratory-no coughing or wheezing Gastrointestinal-as per chief complaint Extremities-no edema no deformity reported Neurologic-no deficits reported Physical Exam: Alert lady no gross apparent distress evaluation no obvious deformities No obvious skin lesions are appreciated Cardiovascular-no ectopy Respiratory-no coughing or wheezing Abdomen-nondistended somewhat obese Extremities-no deformities Neurologic-no focal deficits noted Assessment: Low ferritin with normal iron levels and saturation normal MCV No active signs or reported GI bleeding Age greater than 45 years most recent colonoscopy 2017 Dysphagia etiology unknown rule out mechanical etiology such as motility hiatal hernia or previously noted recurrent stricture No current GI alarm symptoms No significant family history of GI disease No recent history of potential injury or trauma Plan: Orders already in place per primary care CBC with diff iron studies B12 and folate levels Consider repeat EGD with possible dilation if needed Consider deglutition study with speech therapy monitoring Further recommendations are pending these results Face to face time with this patient was approximately 48 minutes with greater than 50% of the time spent in consultation and / or in coordination of care. documented in this encounterProm[facility]12[facility] Instructions* Patient Instructions* Caitlyn Carpenter LPN - 10/23/2024 8:00 AM EST EGD INSTRUCTIONS - Delilah Ellis DO SCHEDULED DATE: Oct 29Tuesday PREPARATION: 1. NO SOLID FOODS up to 12 hours before procedure 2. NO LIQUIDS, NOT EVEN WATER, 4 hours before procedure. Except 2 hour prior to arrival drink 12-20o Gatorade No red, purple or orange. 3. Hold Liraglutide or (Saxenda),Ozempic, Wegovy, Semaglutide, Mounjaro, Bydureon for One week prior to scope. 4. Do not take any medications morning of procedure except for: Coreg 5. YOU WILL BE ABLE TO EAT AFTER THE EXAMINATION IS OVER AND AFTER GOING HOME 6. DO NOT PLAN TO DRIVE OR OPERATE MECHANICAL OR ELECTRICAL DEVICES FOR 24 HOURS AFTER YOUR PROCEDURE SINCE THE EFFECT OF THE SEDATIVE MEDICATION CAN LAST THAT LONG. YOU WLL RECEIVE A CALL THE DAY BEFORE YOUR PROCEDURE FROM THE HOSPITAL WITH THE ARRIVAL TIME FOR YOUR PROCEDURE AND INSTRUCTIONS TO WHERE YOU WILL GO You are responsible to check your insurance benefits and coverage for all procedures. 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 Independent Concerns With Patient Being Able To Care For Themselves At Discharge? Has Assistance (Friend, Family, Skilled Provider) Can Support Person Meet The Care Needs Of The Patient? Yes Employment/Financial Employed? 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 Patient states the plan is to discharge home with family/friends assistance and OP therapy with [facility]. Patient has a wheeled walker. Patient denies any other questions or needs at this time. CM to continue to follow and assist with discharge plans. [facility] History of Present illness Narrative* Fernie Paredes DO - 10/09/2024 2:00 PM EST Subjective History of Present Illness HISTORY OF PRESENT ILLNESS: 64 y.o. female presents with complaints of: Encounter Diagnoses Name Primary? Type 2 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 disease, without long-term current use of insulin Yes Stage 3a chronic kidney disease Hyperlipidemia LDL goal <70 Hyperthyroidism Hypertriglyceridemia Hypomagnesemia Iron deficiency anemia, unspecified iron deficiency anemia type Idiopathic chronic gout without tophus, unspecified site Hypoproteinemia Vitamin D deficiency Hepatomegaly Gastroesophageal reflux disease without esophagitis Folate deficiency Odynophagia Fatty liver Esophagitis, Clyo grade A Esophageal stenosis Duodenal diverticulum Chronic gastritis without bleeding, unspecified gastritis type B12 deficiency PVC's (premature ventricular contractions) Paroxysmal atrial fibrillation Presence of Watchman left atrial appendage closure device PAC (premature atrial contraction) Ischemic stroke Internal and external hemorrhoids without complication Hypertensive heart disease without heart failure Essential hypertension Cerebrovascular accident (CVA), unspecified mechanism Central retinal artery occlusion of left eye Bradycardia Bilateral carotid artery stenosis-30% Right, 60% Left Atherosclerosis of abdominal aorta Pulmonary emphysema, unspecified emphysema type PERCY on CPAP-Off BiPAP due to intolerance Non-seasonal allergic rhinitis, unspecified trigger Moderate persistent asthma without complication Hiatal hernia Chronic sinusitis, unspecified location Chronic obstructive pulmonary disease, unspecified COPD type Allergic conjunctivitis of both eyes Blepharitis of upper eyelids of both eyes, unspecified type Chronic midline low back pain without sciatica Combined forms of age-related cataract, bilateral 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, left eye PCO (posterior capsular opacification), left Pinguecula of both eyes Posterior capsular opacification non visually significant, both eyes-L>R Regular astigmatism of left eye Unspecified amblyopia, right eye HNP (herniated nucleus pulposus), lumbar-Multi level Osteopenia determined by x-ray Other idiopathic scoliosis, lumbar region Primary osteoarthritis of both knees Primary osteoarthritis of both hips-Mild Spinal stenosis of lumbar region without neurogenic claudication Spondylosis of cervical region without myelopathy or radiculopathy Spondylosis of lumbar region without myelopathy or radiculopathy Renal cyst, right Mixed stress and urge incontinence Left renal stone Uterine leiomyoma, unspecified location Seborrheic keratosis, inflamed-Left thigh-S/P Excision Primary osteoarthritis of left knee CLL (chronic lymphocytic leukemia) Macrocytosis Anxiety and depression ASCUS of cervix with negative high risk HPV Chronic anticoagulation 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 Bilateral dry eyes Elevated LFTs Fatigue, unspecified type Fatty food intolerance Hyponatremia Insomnia, unspecified type Irregular astigmatism of right eye Low HDL (under 40) Myopia of right eye Obesity (BMI 30.0-34.9) Pseudophakia of both eyes Presbyopia Sacroiliitis Vision loss of left eye S/P unilateral salpingo-oophorectomy S/P total knee arthroplasty, right History of ETOH abuse History of [id number] 09-30-2020 History of cataract extraction, unspecified laterality Former smoker-Quit 2011 Family history of Alzheimer's disease-Father Family history of hypertension in mother Type 2 DM, CKD-3a, OA left knee, Iron deficiency Anemia and Hyperlipidemia. Needs refills. Non Smoker, former. +Fam Hx HTN in Mother. +Episodic lightheadedness. +occasional odynophagia, chronic left knee pain with intermittent locking. No knee swelling. +Mild LBP with prolonged standing and walking. No radiation, numbness or weakness. +Left blurred vision. Weight down. No C.P., SOB, Edema, Palpitations, Dizziness, Fatigue, GERD, Melena, Hematochezia, Dysuria, or Frequency. All others negative on ROS. Recent Mg is WNL at 1.6. Having Left total knee arthroplasty on 11-12-[address] Blackwood. Recent HgB 13.0, Glucose 125 and GFR 86. Objective Review of Systems Constitutional: Positive for unexpected weight change (Weight down). Negative for fatigue. HENT: Positive for trouble swallowing (odynophagia). Eyes: Positive for visual disturbance (left). Respiratory: Negative for shortness of breath. Cardiovascular: Negative for chest pain, palpitations and leg swelling. Gastrointestinal: Negative for abdominal pain and blood in stool. No GERD Genitourinary: Negative for dysuria and frequency. Musculoskeletal: Positive for arthralgias (left knee with intermittent locking) and back pain (MildLBP, intermitetnt with prolonged standing or walking). Neurological: Positive for light-headedness (episodic). Negative for dizziness, weakness and numbness. Psychiatric/Behavioral: Negative for dysphoric mood and sleep disturbance. The patient is not nervous/anxious. All other systems reviewed and are negative. Psych Review of Symptoms: Depressive Symptoms: No fatigue. Vitals: Blood pressure 115/68, pulse 53, temperature 97.1 F (36.2 C), resp. rate 14, height 1.651 m(5' 5), weight 96.6 kg (212 lb 14.4 oz), SpO2 95%, not currently . Physical Exam Vitals and nursing note reviewed. Constitutional: General: She is not in acute distress. Appearance: Normal appearance. She is obese. She is not ill-appearing. HENT: Head: Normocephalic and atraumatic. Nose: No congestion. Eyes: General: No scleral icterus. Right eye: No discharge. Left eye: No discharge. Extraocular Movements: Extraocular movements intact. Conjunctiva/sclera: Conjunctivae normal. Pupils: Pupils are equal, round, and reactive to light. Pulmonary: Effort: Pulmonary effort is normal. Breath sounds: No wheezing or rhonchi. Abdominal: General: Abdomen is flat. Bowel sounds are normal. There is no distension. Tenderness: There is no abdominal tenderness. Musculoskeletal: General: Normal range of motion. Cervical back: Normal range of motion and neck supple. No rigidity. No muscular tenderness. Right lower leg: No edema. Left lower leg: No edema. Skin: Coloration: Skin is not jaundiced. Findings: No bruising, erythema or rash. Neurological: General: No focal deficit present. Mental Status: She is alert and oriented to person, place, and time. Mental status is at baseline. Psychiatric: Mood and Affect: Mood normal. Behavior: Behavior normal. Thought Content: Thought content normal. Judgment: Judgment normal. Neurological Exam Mental Status Alert. Oriented to person, place, and time. Cranial Nerves CN III, IV, : Extraocular movements intact bilaterally. Pupils equal round and reactive to light bilaterally. Assessment and Plan Refills given all meds requested. Get Arexvy vaccine today or soon at the pharmacy and consider Shingrix after that. COVID-19 vaccine declined. Alaina 10-19-24 for Pre-op clearance and hold ASA for 7 days prior to 11-12-24 Left total knee arthroplasty with Dr. Blackwood. Eval iron deficiency anemia and od ynophagia with Dr. Ellis on 10-23-24. Alaina 10-29-24 with Brian Brush for Watchman alaina and then annually. Alaina 10-31-[address] Calderon and Laney for Pre- op clearance. Check fasting, well hydrated CBC, CMP, A1C, Lipid, TSH, Free T, UA, Vit D, Mg, PTH, Fe, TIBC, Ferritin, B12, Folate, UA CR and UA for micro- albumin on approx 12-25-24 at [facility] lab and ordered today. Alaina 01-01-25, sooner prn. Alaina 01-02-[address] Tamera thakkar RAC and q 12 months. Alaina with 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 NP for PAP. Alaina 3-D Mammogram and DEXA in . Alaina 03-04-[address] Calderon. Alaina 04-02-[address] Ciro Lyles and q6 months. Alaina with Dr. Sigala and check X ray L-spine same day with him. Alaina with Dr. Dejesus and we will call for notes from 1 week ago in from him. Alaina 09-11-[address] Naty Bhakta, Heme Onc. Alaina Colon in unless done sooner after sees Dr. Ellis on 10-23-24. No PAP needed.Total time spent 38 minutes, excluding tests and procedures. Diet and lifestyle counseling was given, and care coordinated. OARRS report was received and assessed, and is consistent withthe medications prescribed. Thank you for [facility] Dr. Fern[facility] The patients' entire past medical, surgical, family, social history, allergies, medications, recent labs, recent imaging and ibm websphere commerce consultant letters were reviewed and updated. ASSESSMENT & PLAN: Encounter Diagnoses Name Primary? Type 2 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 disease, without long-term current use of insulin Yes Stage 3a chronic kidney disease Hyperlipidemia LDL goal <70 Hyperthyroidism Hypertriglyceridemia Hypomagnesemia Iron deficiency anemia, unspecified iron deficiency anemia type Idiopathic chronic gout without tophus, unspecified site Hypoproteinemia Vitamin D deficiency Hepatomegaly Gastroesophageal reflux disease without esophagitis Folate deficiency Odynophagia Fatty liver Esophagitis, Clyo grade A Esophageal stenosis Duodenal diverticulum Chronic gastritis without bleeding, unspecified gastritis type B12 deficiency PVC's (premature ventricular contractions) Paroxysmal atrial fibrillation Presence of Watchman left atrial appendage closure device PAC (premature atrial contraction) Ischemic stroke Internal and external hemorrhoids without complication Hypertensive heart disease without heart failure Essential hypertension Cerebrovascular accident (CVA), unspecified mechanism Central retinal artery occlusion of left eye Bradycardia Bilateral carotid artery stenosis-30% Right, 60% Left Atherosclerosis of abdominal aorta Pulmonary emphysema, unspecified emphysema type PERCY on CPAP-Off BiPAP due to intolerance Non-seasonal allergic rhinitis, unspecified trigger Moderate persistent asthma without complication Hiatal hernia Chronic sinusitis, unspecified location Chronic obstructive pulmonary disease, unspecified COPD type Allergic conjunctivitis of both eyes Blepharitis of upper eyelids of both eyes, unspecified type Chronic midline low back pain without sciatica Combined forms of age-related cataract, bilateral 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, left eye PCO (posterior capsular opacification), left Pinguecula of both eyes Posterior capsular opacification non visually significant, both eyes-L>R Regular astigmatism of left eye Unspecified amblyopia, right eye HNP (herniated nucleus pulposus), lumbar-Multi level Osteopenia determined by x-ray Other idiopathic scoliosis, lumbar region Primary osteoarthritis of both knees Primary osteoarthritis of both hips-Mild Spinal stenosis of lumbar region without neurogenic claudication Spondylosis of cervical region without myelopathy or radiculopathy Spondylosis of lumbar region without myelopathy or radiculopathy Renal cyst, right Mixed stress and urge incontinence Left renal stone Uterine leiomyoma, unspecified location Seborrheic keratosis, inflamed-Left thigh-S/P Excision Primary osteoarthritis of left knee CLL (chronic lymphocytic leukemia) Macrocytosis Anxiety and depression ASCUS of cervix with negative high risk HPV Chronic anticoagulation 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 Bilateral dry eyes Elevated LFTs Fatigue, unspecified type Fatty food intolerance Hyponatremia Insomnia, unspecified type Irregular astigmatism of right eye Low HDL (under 40) Myopia of right eye Obesity (BMI 30.0-34.9) Pseudophakia of both eyes Presbyopia Sacroiliitis Vision loss of left eye S/P unilateral salpingo-oophorectomy S/P total knee arthroplasty, right History of ETOH abuse History of [id number] 09-30-2020 History of cataract extraction, unspecified laterality Former smoker-Quit 2011 Family history of Alzheimer's disease-Father Family history of hypertension in mother Orders Placed This Encounter Procedures CBC, EDIF, PLATELET Copy to Dr. WM. Calderon, Dr. Fernando Davison, Dr. Naty Bhakta, Hematology Oncology at [facility] and Dr. Brian Brush at [facility] Cardiology Standing Status: Future Standing Expiration Date: 10/09/2025 COMPREHENSIVE METABOLIC PANEL Standing Status: Future Standing Expiration Date: 10/09/2025 HEMOGLOBIN A1C Standing Status: Future Standing Expiration Date: 10/09/2025 LIPID PANEL W CALCULATED LDL Standing Status: Future Standing Expiration Date: 10/09/2025 TSH Standing Status: Future Standing Expiration Date: 10/09/2025 URIC ACID Standing Status: Future Standing Expiration Date: 10/09/2025 VITAMIN D (25-HYDROXY,TOTAL) Standing Status: Future Standing Expiration Date: 10/09/2025 MAGNESIUM Standing Status: Future Standing Expiration Date: 10/09/2025 PTH INTACT Standing Status: Future Standing Expiration Date: 10/09/2025 FERRITIN Standing Status: Future Standing Expiration Date: 10/09/2025 IRON/IRON BINDING/TRANSFERRIN Standing Status: Future Standing Expiration Date: 10/09/2025 FOLATE, SERUM Standing Status: Future Standing Expiration Date: 10/09/2025 VITAMIN B12 Standing Status: Future Standing Expiration Date: 10/09/2025 T4 FREE Standing Status: Future Standing Expiration Date: 10/09/2025 Medications Discontinued During This Encounter Medication Reason triamterene-hydrochlorothiazide (Dyazide) 37.5-25 MG per capsule Reorder traZODone 100 MG tablet Reorder Pantoprazole (Protonix) [address] tablet DR Reorder Lisinopril 5 MG tablet Reorder Folic acid 1 MG tablet Reorder fenofibrate 160 MG tablet Reorder Escitalopram (Lexapro) 10 MG tablet Reorder cyanocobalamin 1000 MCG tablet Reorder carveDILOL (Coreg) 12.5 MG tablet Reorder buPROPion (Wellbutrin XL) 300 MG tablet XL Reorder Current Outpatient Medications Medication Sig Dispense Refill buPROPion (Wellbutrin XL) 300 MG tablet XL Take 1 tablet by mouth every morning before breakfast. Cancel previous refills 90 tablet 0 carveDILOL (Coreg) 12.5 MG tablet Take 1 tablet by mouth 2 times daily with meals. Cancel previous refills 180 tablet 0 cyanocobalamin 1000 MCG tablet Take 1 tablet by mouth daily. Chew 1 tab q daily. Cancel previous refills 90 tablet 0 Escitalopram (Lexapro) 10 MG tablet Take 1 tablet by mouth daily. Cancel previous refills 90 tablet0 fenofibrate 160 MG tablet Take 1 tablet by mouth daily. Cancel previous refills 90 tablet 0 Folic acid 1 MG tablet Take 1 tablet by mouth daily. Cancel previous refills 90 tablet 0 Lisinopril 5 MG tablet Take 1 tablet by mouth daily. Cancel previous refills 90 tablet 0 Pantoprazole (Protonix) [address] tablet DR Take 1 tablet by mouth 2 times daily (take before meals). Cancel previous refills 180 tablet 0 traZODone 100 MG tablet Take 1 tablet by mouth at bedtime. Cancel previous refills 90 tablet 0 triamterene-hydrochlorothiazide (Dyazide) 37.5-25 MG per capsule Take 1 capsule by mouth daily. Cancel previous refills 90 capsule 0 Albuterol (Ventolin HFA) 108 (90 Base) MCG/ACT Aero Soln inhaler Inhale 2 puffs every 6 hours as needed for Wheezing. 18 g 0 Allopurinol 100 MG tablet Take 1 tablet by mouth daily. (Patient taking differently: Take 1 tablet by mouth daily. AM) 90 tablet 3 Aspirin (SB Low Dose ASA EC) [address] tablet Take 1 tablet by mouth daily with breakfast. OTC Cetirizine 10 MG tablet Take 1 tablet by mouth daily. OTC Evolocumab (Repatha Dudley) 140 MG/ML Solution Auto-injector injection Inject 1 mL under the skin every 14 days. SATURDAYS 6 mL 3 fluticasone (Flonase Allergy Relief) 50 MCG/ACT Suspension nasal spray 2 sprays by Nasal route daily as needed. OTC magnesium oxide 400 (240 Mg) MG Take 1 tablet by mouth 2 times daily with meals. No current facility-administered medications for this visit. Counseling given: No Follow up appointment(s) have been discussed with the patient. The patient is given an After Visit Summary sheet that lists all of their medications with directions, their allergies, orders placed during this encounter, immunization dates, and follow- up instructions. Fernie Paredes, DO [address] [id number] This note is electronically signed in the electronic medical record. documented in this [facility] [place]12-17-2024 Instructions* Patient Instructions* Fernie Paredes DO - 10/09/2024 2:00 PM EST Do fasting, well hydrated labs on approx 12-25-24 documented in this [facility] [place]12-10-2024 Instructions* Patient Instructions* Ciro Lyles MD - 10/02/2024 4:15 PM EST Please return in 6 months. If you have any questions please contact our office at [phone]. After office hours or on the weekend, please call Dr. Lyles on his cell phone at [phone]. documented [facility] NoteDate of Procedure 10/02/2024. 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 Quality Right Eye Good. Left Eye Good. NFL Interpretation Right Eye Normal. Left Eye Diffuse loss. Ganglion Cell Layer Thickness Right Eye Normal. Left Eye Diffuse loss. Interval Change Right Eye Stable. Left Eye Stable.[id number] NoteDate of Procedure 10/02/2024. C/D Ratio Right Eye 0.3. Left Eye 0.5. Disc Right Eye Cupping. Left Eye Atrophy.[id number] NoteHNO ID: [id number] Author: CIRO LYLES MD Service: ? Author Type: Physician Type: Progress Notes Filed: 10/02/2024 16:15 Note Text: ASSESSMENT/PLAN: 1. After cataract not obscuring vision, bilateral - ICD9: 366.52, ICD10: H26.493 (primary diagnosis) Stable/monitor 3. Optic atrophy of left eye - ICD9: 377.10, ICD10: H47.20 Stable/monitor History of central artery occlusion left eye 3.. Pseudophakia of both eyes - ICD9: V43.1, ICD10: Z96.1 -Intraocular lens in good position Both eyes -Monitor 4. Essential hypertension - ICD9: 401.9, ICD10: I10 5. Hypercholesteremia - ICD9: 272.0, ICD10: E78.00 -Continue care with primary care physician I have confirmed and edited as necessary the relevant HPI, ophthalmic history, ROS, and the neuro exam findings as obtained by others. I have seen and examined Elena Galeano. I have discussed the case and the management of this patient's care with the Resident/Fellow, if applicable. I also have reviewed and agree with the assessment and plan as stated above and agree with all of its relevant components.[facility]12-10-2024 History of Present illness Narrative* Ciro Lyles MD - 10/02/2024 4:05 PM EST ASSESSMENT/PLAN: 1. After cataract not obscuring vision, bilateral - ICD9: 366.52, ICD10: H26.493 (primary diagnosis) Stable/monitor 3. Optic atrophy of left eye - ICD9: 377.10, ICD10: H47.20 Stable/monitor History of central artery occlusion left eye 3.. Pseudophakia of both eyes - ICD9: V43.1, ICD10: Z96.1 -Intraocular lens in good position Both eyes -Monitor 4. Essential hypertension - ICD9: 401.9, ICD10: I10 5. Hypercholesteremia - ICD9: 272.0, ICD10: E78.00 -Continue care with primary care physician I have confirmed and edited as necessary the relevant HPI, ophthalmic history, ROS, and the neuro exam findings as obtained by others. I have seen and examined Elena Galeano. I have discussed the case and the management of this patient's care with the Resident/Fellow, if applicable. I also have reviewed and agree with the assessment and plan as stated above and agree withall of its relevant components. documented in [facility]Mi[facility]11-27-[facility] History of Present illness Narrative* YOAN Jaeger - 09/19/2024 11:20 AM EST HEMATOLOGY CLINIC PROGRESS NOTE Diagnosis & Treatment Hx: Diagnosis: CLL/SLL dx 2011 Current Treatment: Observation Disease History: Diagnostics from OSH in 2011 CLL/SLL: - 05/2012: symptoms of shortness of breath and went to ED, found to have Splenomegaly 21cm on abd us and lymphocytosis - Bone marrow biopsy: morphology with absolute lymphocytosis composed of small lymphocytes with small round nuclei and clumped chromatin and a 2nd population with more abundant cytoplasm; predominantpopulation of cd19,20,23 with a minor population of cd5,19,20,23,79b; bcl2/igh translocation detected; bcl6, and bcl2 expression noted; 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 Galeano was last seen on 09/21/2023 and presents for annual follow-up. She reports stable, moderate fatigue. She denies enlarged lymph nodes. CT A/P was done on 10/19/23 due to symptoms of LUQ tenderness and vomiting. There was no splenomegaly or enlarged lymph nodes. There was indication for mild gastritis. Today she reports early satiety, intermittent dysphagia, and intermittent nausea. She previously needed her esophagus dilated and reports the last time it was done was in 2020. She has her initial appointment with GI at the end of September. On 11/24, she had a Watchman procedure and her eliquis was stopped. She followed up with Cardiology at [facility] on 05/22/24. On 05/03, she had a right SI joint fusion done for sacroiliitis. Today she reports continued chronicback pain that is worse with standing and walking. She also reports chronic left knee pain. Ms. Galeano saw Ortho on 08/30 for evaluation of the left knee pain and was diagnosed with severe end-stage a rthritis. The plan is for a total left knee replacement on 11/12/24. Review of Systems: GEN: + moderate fatigue. + early satiety. Denies fever, night sweats, weight loss. EYE: + decreased vision in left eye d/t stroke. Denies vision change, eye discharge, photophobia. ENT: Denies hearing or ear pain, sinusitis, sore throat, mouth sores, or voice change. COR: Denies chest pain, palpitations, leg edema, or orthopnea. RESP: Denies cough, shortness of breath at rest, wheezing, or dyspnea on exertion. GE: Denies nausea, vomiting, diarrhea, heartburn, constipation, or abdominal pain. : Denies changes in urination. Denies hematuria or dysuria. NEURO: Denies lightheadedness, dizziness, headaches, numbness, tingling or focal weakness. SKIN: Denies rash, pruritis, or concerning skin lesions. EXTREMITIES: Denies edema or swelling present. MSK: + chronic low back pain. + chronic left knee pain. Denies other joint pain or muscle pain LYMPH/HEME: Denies increased adenopathy to self exam, bruising or bleeding. PSYCH: Denies anxiety or depression. Physical Exam: Vitals: 09/19/24 1058 BP: 122/60 Pulse: 66 Resp: 14 Temp: 97.1 degrees F (36.2 degrees C) TempSrc: Infrared SpO2: 97% Weight: 98.8 kg (217 lb 12.8 oz) Height: 1.651 m (5' 5) ECOG Performance Status: Performance status: Karnofsky scale 90 (ECOG grade 0) Performs normal activity with minor effort GEN: Well developed, well nourished, AAOx3. No apparent distress. Appropriate mood and affect for clinical situation. HEAD and NECK: Normocephalic, atraumatic. Conjunctiva non-injected. Sclera non- icteric. PERRL, EOMI. Neck supple. Oral mucosa is pink, moist, not inflamed and without lesions. CARDIO: Regular rate and rhythm, no murmurs, click or gallop. CHEST: Lungs are clear to auscultation bilaterally, no wheezes, rhonchi or rales. ABDOMEN: Soft, non-tender, non-distended, hepatosplenomegaly not appreciated. No mass. NEURO: Cranial nerves II-XII grossly intact, no focal deficits. SKIN: skin color, texture, turgor normal. Anicteric. No rash, lesions, masses. Skin is warm and dry. EXTREMITIES: No cyanosis. No LE edema. No calf tenderness. Lymph Node examination: Location Right cm Left cm Cervical neg neg Supraclavicular neg neg Axillary neg neg Inguinal neg neg Femoral neg neg Results: CBC Lab Results Component Value Date WBC 5.46 09/19/2024 HGB 13.0 (L) 09/19/2024 HCT 37.8 (L) 09/19/2024 PLATELET 208 09/19/2024 MCV 94.0 09/19/2024 EDIF Lab Results Component Value Date RBCDISTRIBU 12.2 09/19/2024 GRNLOCYT 43.7 09/19/2024 LYMPHOCYT 43.0 09/19/2024 MONOCYTELEC 11.7 09/19/2024 EOSINOPHILS 0.7 09/19/2024 BASOPHILS 0.5 09/19/2024 GRNLOCTYABS 3.0 11/03/2016 LYMPHOCYTABS 2.35 09/19/2024 MONOSABSOLU 0.5 11/03/2016 EOSINOPHLABS 0.04 09/19/2024 BASOPHILSABS 0.1 11/03/2016 PLATELET 208 09/19/2024 MPV 10.4 09/19/2024 Assessment/Plan: Sarah Galeano is a 64 y.o. female who is coming today for evaluation and management of CLL. She is currently on observation. #CLL - peripheral counts stable - no palpable lymph nodes - denies b-symptoms - continue observation #Hx of Afib, HTN, and stroke - Watchman procedure done on 11/24/23 - Eliquis stopped at that time - will continue to follow-up with Cardiology at [facility] #Health Maintenance - continue follow-up with PCP and Dermatology annually - UTD on colonoscopy - UTD on mammogram - UTD on vaccines. - We also suggest avoiding live vaccine, and continuing cancer screening for skin cancer, colon, and breast cancer. #ID - no signs of active infection - will continue to monitor for infection. Pt will RTC in 1 year. The above was discussed with Dr. Bhakta, who is in agreement. Patient has been advised to contact our team for new/worsening symptoms. * Naty Bhakta MD - 09/19/2024 11:20 AM EST I have seen and examined this patient and have discussed the patient with Lynette Ocsaio CNP. I agree with the history, exam, and medical decision making as documented. Since last year she has continued to have GI symptoms, now with intermittent dysphagia and nausea. She has no signs of progression of CLL. She would prefer to work with her PCP to re-establish with GI, and we encouraged her to do this. She will return in 1 year for follow-up. [facility]-27-[facility] Instructions* Patient Instructions* Miri Vargas RN - 09/19/2024 11:20 AM EST YOUR PRIMARY TEAM Dr. Naty Echols CNP - Nurse Practitioner Sujit Thomason, RN - Primary Nurse Miri Vargas, RN- Secondary Nurse Please contact our office if you develop a temperature of 100.4 or greater. CONTACT NUMBERS Clinic phone: [phone] Clinic fax: [phone] MEDICAL RECORDS The Release of Information (KEVIN) area is staffed from 8:00 a.m. to 7:00 p.m. and is available for walk in requests from 8:00 a.m. to 4:30 p.m. [facility] is responsible for answering requests for copies of medical records from various requestors such as insurance companies, attorneys, hospitals and patients. Please note it can take up to 2 weeks to complete your request. [phone]; [phone] (fax). DISABILITY FORMS This category includes any form (STD, LTD, FMLA, cancer insurance policy) requiring information to be completed by a physician or nurse practitioner. The forms should be given to the clinic nurse. There is no fee associated with this request but note it may take 2 weeks to complete. The forms cannot be completed during a clinic visit or within 24 hours of your request. It is important to place the patient s name, employee s name, patient s date, date disability begins and ends and any required signatures. Ask our team about the suggested recovery time. [employer] is a secure way to get access to your labs online. In most instances, your test results are released to your [email or web address] account after your physician has reviewed them. This is generally within two weeks. Some routine test results are automatically delivered to your account, while others are released by your health care provider. In both cases, your provider will receive and review all y our test results, and he or she will contact you if further discussion about your result is needed. For non-emergent concerns, please send us a [employer] message but describe your issue fully. As an example, tell us how long you've had the symptom, what makes it better or worse, what you've done for it already) and one of our nurses or nurse practitioners will respond kenneth. For questions or concerns regarding [employer] access or technical dificulties, please call [phone] or toll free at . Results for orders placed or performed in visit on 09/19/24 LACTATE DEHYDROGENASE Result Value Ref Range LD Total 186 Male: 100-190, Female: 100-190 U/L COMPREHENSIVE METABOLIC PANEL Result Value Ref Range Sodium 136 135 - 145 mmol/L Potassium 4.0 3.5 - 5.0 mmol/L Chloride 98 98 - 108 mmol/L BUN 9 7 - 25 mg/dL Creatinine 0.97 Male: 0.7-1.3, Female: 0.5-1.2 mg/dL Glucose 125 (H) 70 - 99 mg/dL Bilirubin Total 0.5 <1.5 mg/dL Albumin 4.2 Male: 3.5-5.0, Female: 3.5-5.0 g/dL Total Protein 7.1 6.4 - 8.3 g/dL AST 23 Male: 10-39, Female: 10-39 U/L ALP 55 Male: 32-126, Female: 32-126 U/L Calcium 9.5 8.6 - 10.5 mg/dL CO2 28 21 - 31 mmol/L ALT 26 Male: 10-52, Female: 9-48 U/L Bun/Crea Ratio 9 Osmolality (Calculated) 286 278 - 305 mOsm/kg Anion Gap 14 7 - 17 mmol/L eGFR, CKD-EPI, Male 86 >=60 mL/min/1.73m2 eGFR, CKD-EPI, Female 64 >=60 mL/min/1.73m2 CBC AND ELECTRONIC DIFF Result Value Ref Range WBC Count 5.46 Male: 3.73-10.10, Female: 3.99-11.19 K/uL RBC Count 4.02 (L) Male: 4.38-5.83, Female: 3.91-5.04 M/uL Hemoglobin 13.0 (L) Male: 13.4-16.8, Female: 11.4-15.2 g/dL Hematocrit 37.8 (L) Male: 39.6-48.8, Female: 34.9-44.3 % Mean Cell Volume 94.0 Male: 79.0-94.5, Female: 79.6-97.7 fL Mean Cell Hgb 32.3 Male: 26.1-33.3, Female: 25.9-33.9 pg Mean Cell Hgb Conc 34.4 Male: 31.9-36.5, Female: 31.4-35.9 g/dL RBC Distribution 12.2 Male: 10.9-14.9, Female: 10.8-14.9 % Platelet Count 208 Male: 146-337, Female: 150-393 K/uL Mean Platelet Volume 10.4 Male: 8.7-12.3, Female: 8.5-12.2 fL DIFF STATUS Electronic Differential Segs + Bands Auto 43.7 % Immature Grans % 0.4 % Lymphocyte % Auto 43.0 % Monocyte % Auto 11.7 % Eosinophil % Auto 0.7 % Basophil % Auto 0.5 % Nucleated RBC 0.0 <=0.2 /100 WBC Segs + Bands,Absolute Auto 2.38 Male: 1.57-6.19, Female: 1.64-7.28 K/uL Immature Grans Absolute <0.04 Male: <=0.07, Female: <=0.08 K/uL Abs Lymph Auto 2.35 Male: 0.83-3.57, Female: 1.16-3.51 K/uL Abs Winston Auto 0.64 Male: 0.24-0.93 Female: 0.22-0.87 K/uL Abs Eos Auto 0.04 Male: 0.00-0.48, Female: 0.00-0.42 K/uL Abs Baso Auto <0.04 Male: 0.00-0.09, Female: 0.00-0.15 K/uL documented in this encounterMer[facility]11-07-[facility] History of Present illness Narrative* Luisa Cano - 08/30/2024 2:40 PM EST Ortho Nurse - Established Patient Intake Room#: room 3-- pt is here today for left knee pain. She was last seen in office on 04/29/23 and was scheduled for surgery, then had to be cancelled due to other circumstances. She is here today to reschedule a L TKA. She has had injections and physical therapy in the past. Her pain is 3-4/10 today. Date: 08/30/2024 3:08 PM Patient: Elena Galeano MR#: [id number] : 1960 Age: 64 y.o. Referring Physician: Self, Self Insurance: Payor: MEDICARE / Plan: MEDICARE A AND B / Product Type: *No Product type* / Chief Complaint Patient presents with Left Knee - Pain There were no vitals taken for this visit. Pain 1. Are you having pain? 2. On a scale from 1-10: Recent Labs Lab Results Component Value Date CRP 14.5 (H) 08/04/2023 Lab Results Component Value Date SEDRATE 16 08/04/2023 Lab Results Component Value Date WBC 5.4 07/09/2024 HGB 12.0 07/09/2024 HCT 35.5 (L) 07/09/2024 PLATELET 200 07/09/2024 MCV 96.3 07/09/2024 History Past Medical History: Diagnosis Date Non-Hodgkin lymphoma 2011 in remission CLL (chronic lymphocytic leukemia) 2012 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 (blindness) A-fib Arrhythmia Arthritis ASCUS of cervix with negative high risk HPV B12 deficiency Carotid stenosis, bilateral-Right 30%, and left 60% Central retinal artery occlusion of left eye CKD stage 3a, GFR 45-59 ml/min [id number] on 09-30-2020 Depression Diffuse non-Hodgkin's lymphoma chemotherapy Folate deficiency GERD (gastroesophageal reflux disease) Gout pt denies Hiatal hernia pt denies Hyperlipidemia LDL goal <70 Hypertension Hyponatremia Iron deficiency anemia PERCY (obstructive sleep apnea) PVC's (premature ventricular contractions) Type 2 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 disease, without long-term current use of insulin Past Surgical History: Procedure Laterality Date ARTHRODESIS SACROILIAC JOINT MINIMALLY INVASIVE W/ TRANSFIXING DEVICE Right 05/03/2024 Laterality: Right; Surgeon: Isreal Sigala MD; Location: [facility] OR FLUOROSCOPY IN OR Right 05/03/2024 Laterality: Right; Surgeon: Isreal Sigala MD; Location: [facility] OR I&D BURSA FOOT Left 07/08/2023 Laterality: Left; Surgeon: Dawn Uriarte DPM; Location: [facility] OR INJECTION NERVE OTHER PERIPHERAL Left 12/16/2022 Laterality: Left; Surgeon: Isreal Sigala MD; Location: [facility] OR GUIDANCE FLUOROSCOPIC NEEDLE OR CATHETER PLACEMENT FOR SPINE INJECTION ADD-ON PX Left 12/16/2022 Laterality: Left; Surgeon: Isreal Sigala MD; Location: [facility] OR SUSPENSION URETHRA/URETHROVESICAL FEMALE OPEN W/ SYNTHETIC MATERIAL (SLING) Midline 08/31/2022 Laterality: Midline; Surgeon: Dariusz Rangel MD; Location: [facility] OR CYSTOURETHROSCOPY W/ DILATION BLADDER Midline 08/31/2022 Laterality: Midline; Surgeon: Dariusz Rangel MD; Location: [facility] OR COLPORRHAPHY ANTEROPOSTERIOR REPAIR CYSTOCELE & RECTOCELE Midline 08/31/2022 Laterality: Midline; Surgeon: Dariusz Rangel MD; Location: [facility] OR ARTHRODESIS SACROILIAC JOINT MINIMALLY INVASIVE W/ TRANSFIXING DEVICE Left 06/17/2022 Laterality: Left; Surgeon: Isreal Sigala MD; Location: [facility] OR GUIDANCE FLUOROSCOPIC NEEDLE OR CATHETER PLACEMENT FOR SPINE INJECTION ADD-ON PX Left 06/17/2022 Laterality: Left; Surgeon: Isreal Sigala MD; Location: [facility] OR EGD W/ DILATION BALLOON N/A 12/01/2021 Laterality: N/A; Surgeon: Indra Parrish DO; Location: [facility] ENDOSCOPY SHOULDER ARTHROSCOPY Left 06/18/2021 REMOVAL CENTRAL VENOUS ACCESS DEVICE TUNNELED W/ PORT PUMP Left 09/13/2019 Laterality: Left; Surgeon: Eduardo Muñoz MD; Location: [facility] INTERVENTIONAL RADIOLOGY (VIR) EGD W/ DILATION BALLOON N/A 06/30/2018 Laterality: N/A; Surgeon: Indra Parrish DO; Location: [facility] ENDOSCOPY EGD DIAGNOSTIC N/A 04/07/2018 Laterality: N/A; Surgeon: Wilner Leigh MD; Location: [facility] ENDOSCOPY COLONOSCOPY DIAGNOSTIC N/A 04/07/2018 Laterality: N/A; Surgeon: Wilner Leigh MD; Location: [facility] ENDOSCOPY KNEE REPLACEMENT Right 05/2015 done at [place]--CC ARTHROPLASTY KNEE TOTAL Right 04/2015 INSERTION PICC W/ PORT PUMP 2014 power port COLONOSCOPY DIAGNOSTIC 2006 SALPINGO-OOPHORECTOMY OPEN N/A 1983 APPENDECTOMY OPEN 1983 TONSILLECTOMY ADENOIDECTOMY 1967 EGD DIAGNOSTIC 10 months ago Family History: Sarah's family history includes Anesth Problems in Sarah's sister; Arrhythmia in Sarah's father; Autism in Sarah's grandson; Breast Cancer in Sarah's maternal aunt; Cancer in Sarah's paternal aunt; Cancer- Other in Sarah's maternal uncle; Clotting Disorder in Sarah's mother; Dementia in Sarah's father; Depression in Sarah's mother; Hypertension in Sarah's mother and son; Lipid Disorder in Sarah's daughter and mother; Liver Disease in Sarah's mother; Lung Cancer in Sarah's maternal grandfather; No known problems in Sarah's daughter; Ovarian Cancer in Sarah's paternal aunt. Social History: Sarah's reports that Saarh quit smoking about 11 years ago. Sarah's smoking use included cigarettes. Sarah started smoking about 46 years ago. Sarah has a 26.3 pack-year smoking history. Sarah has never used smokeless tobacco. Sarah reports current alcohol use of about 3.0 standard drinks of alcohol per week. Sarah reports that Sarah does not use drugs. Outpatient Medications Prior to Visit Medication Sig Dispense Refill Albuterol (Ventolin HFA) 108 (90 Base) MCG/ACT Aero Soln inhaler Inhale 2 puffs every 6 hours as needed for Wheezing. 18 g 0 Allopurinol 100 MG tablet Take 1 tablet by mouth daily. (Patient taking differently: Take 1 tablet by mouth daily. AM) 90 tablet 3 Aspirin (SB Low Dose ASA EC) [address] tablet Take 1 tablet by mouth daily with breakfast. OTC buPROPion (Wellbutrin XL) 300 MG tablet XL Take 1 tablet by mouth every morning before breakfast. 90 tablet 0 carveDILOL (Coreg) 12.5 MG tablet Take 1 tablet by mouth 2 times daily with meals. Cancel previous refills 180 tablet 0 Cetirizine 10 MG tablet Take 1 tablet by mouth daily. OTC cyanocobalamin 1000 MCG tablet Take 1 tablet by mouth daily. Chew 1 tab q daily 90 tablet 0 Escitalopram (Lexapro) 10 MG tablet Take 1 tablet by mouth daily. 90 tablet 0 Evolocumab (Repatha SureClick) 140 MG/ML Solution Auto-injector injection Inject 1 mL under the skin every 14 days. SATURDAYS 6 mL 3 fenofibrate 160 MG tablet Take 1 tablet by mouth daily. Cancel previous refills 90 tablet 0 fluticasone (Flonase Allergy Relief) 50 MCG/ACT Suspension nasal spray 2 sprays by Nasal route daily as needed. OTC Folic acid 1 MG tablet Take 1 tablet by mouth daily. 90 tablet 0 Lisinopril 5 MG tablet Take 1 tablet by mouth daily. Cancel previous refills 90 tablet 0 magnesium oxide 400 (240 Mg) MG Take 1 tablet by mouth 2 times daily with meals. Pantoprazole (Protonix) [address] tablet DR Take 1 tablet by mouth 2 times daily (take before meals). 180 tablet 0 traZODone 100 MG tablet Take 1 tablet by mouth at bedtime. 90 tablet 0 triamterene-hydrochlorothiazide (Dyazide) 37.5-25 MG per capsule Take 1 capsule by mouth daily. Cancel previous refills 90 capsule 0 No facility-administered medications prior to visit. Allergies: Sarah is allergic to nsaids. * Gonsalo Blackwood MD - 08/30/2024 2:40 PM EST HPI: Patient is here with her today for evaluation of left knee pain. Primary complaint is pain, impairment in the knee and a decreased quality of life secondary to Sarah's left knee pain. Thepain radiates locally, not associated with numbness or tinging. Sarah has a lot of instability with it. Sarah has experienced locking, popping, catching and clicking. Patient is apprehensive of fallingon a daily basis. The more Sarah is on it, the more it hurts. Patient has tried physical therapy andinjections in the past, which do not provide relief from current symptoms. Patient is here today for evaluation and to determine treatment options. PHYSICAL EXAM: This is an alert, oriented, and age-appropriate adult. Sarah is in no distress. Pleasant and cooperative. EXTREMITIES: The lower extremities have no gross deformities. Normal stability.Skin Intact. 5/5 motor. Intact sensation. Normal neurovascular status. Normal coordination. Range of motion upon exam today is 0-120. Stable examination to varus and valgus stress. Full motion of hip. No pain. No impingement. No instability. Contralateral leg has normal alignment. Full motion. No pain. No impingement. No instability. IMAGING: Plain film radiographs were reviewed. Multiple views of the knee demonstrate severe arthritis to left knee, loss of joint space in both the lateral and patellofemoral compartment, subchondral sclerosis, osteophyte formation, and [id number]-fopg contact. IMPRESSION: Severe symptomatic end-stage arthritis, left knee. PLAN: We have discussed in great detail the nature of the diagnosis, the natural history and expected progression which is likely worsening pain, instability with risks of falls, and additional jointwear and or bone loss. We have discussed the options for treatment including both conservative and operative treatments. We have discussed the risks, benefits, and alternatives to each treatment. Elena is interested in surgical management in the form of a left total knee replacement. Elena understands that the potential benefits are reduced pain, improved stability and improved function. Elena also understands that the major limb and/or life threatening risks include, but are not limited to: bleeding, infection, neurovascular injury including foot drop or paralysis, dislocation, component failure, implant loosening, ligament or tendon disruption, fracture, stiffness, chronic pain, chronic disability, need for further surgery, blood clots in the extremities or lungs, stroke, heart attack, loss of limb, and ultimately loss of life. assisted expectations, risks and general implant survivorship were also discussed. Despite these risks, the patient would like to proceed with surgical planning. Today, we will initiate the pre-surgical process including nasal MRSA screening, scheduling an appointment for [facility] and the potential surgical date, and reviewing and signing the consent forms. She does have post operative popping and creacking in the right knee and we elected to follow up onthat after her LTKA as the left knee is of most concern. I have reviewed the findings of my clinical staff below and agree with their assessment. Vitals: 08/30/24 1507 Weight: 99.4 kg (219 lb 3.2 oz) Height: 1.651 m (5' 5) Pain Recent Labs Lab Results Component Value Date CRP 14.5 (H) 08/04/2023 Lab Results Component Value Date SEDRATE 16 08/04/2023 Lab Results Component Value Date WBC 5.4 07/09/2024 HGB 12.0 07/09/2024 HCT 35.5 (L) 07/09/2024 PLATELET 200 07/09/2024 MCV 96.3 07/09/2024 Past Medical History: Diagnosis Date A-fib Arrhythmia Arthritis ASCUS of cervix with negative high risk HPV B12 deficiency Carotid stenosis, bilateral-Right 30%, and left 60% Central retinal artery occlusion of left eye CKD stage 3a, GFR 45-59 ml/min CLL (chronic lymphocytic leukemia) 2012 [id number] on 09-30-2020 Depression Diffuse non-Hodgkin's lymphoma chemotherapy Folate deficiency GERD (gastroesophageal reflux disease) Gout pt denies Hiatal hernia pt denies Hyperlipidemia LDL goal <70 Hypertension Hyponatremia Iron deficiency anemia Non-Hodgkin lymphoma 2012 in remission PERCY (obstructive sleep apnea) PVC's (premature ventricular contractions) 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 (blindness) Type 2 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 disease, without long-term current use of insulin Past Surgical History: Procedure Laterality Date ARTHRODESIS SACROILIAC JOINT MINIMALLY INVASIVE W/ TRANSFIXING DEVICE Right 05/03/2024 Laterality: Right; Surgeon: Isreal Sigala MD; Location: [facility] OR FLUOROSCOPY IN OR Right 05/03/2024 Laterality: Right; Surgeon: Isreal Sigala MD; Location: [facility] OR I&D BURSA FOOT Left 07/08/2023 Laterality: Left; Surgeon: Dawn Uriarte DPM; Location: [facility] OR INJECTION NERVE OTHER PERIPHERAL Left 12/16/2022 Laterality: Left; Surgeon: Isreal Sigala MD; Location: [facility] OR GUIDANCE FLUOROSCOPIC NEEDLE OR CATHETER PLACEMENT FOR SPINE INJECTION ADD-ON PX Left 12/16/2022 Laterality: Left; Surgeon: Isreal Sigala MD; Location: [facility] OR SUSPENSION URETHRA/URETHROVESICAL FEMALE OPEN W/ SYNTHETIC MATERIAL (SLING) Midline 08/31/2022 Laterality: Midline; Surgeon: Dariusz Rangel MD; Location: [facility] OR CYSTOURETHROSCOPY W/ DILATION BLADDER Midline 08/31/2022 Laterality: Midline; Surgeon: Dariusz Rangel MD; Location: [facility] OR COLPORRHAPHY ANTEROPOSTERIOR REPAIR CYSTOCELE & RECTOCELE Midline 08/31/2022 Laterality: Midline; Surgeon: Dariusz Rangel MD; Location: [facility] OR ARTHRODESIS SACROILIAC JOINT MINIMALLY INVASIVE W/ TRANSFIXING DEVICE Left 06/17/2022 Laterality: Left; Surgeon: Isreal Sigala MD; Location: [facility] OR GUIDANCE FLUOROSCOPIC NEEDLE OR CATHETER PLACEMENT FOR SPINE INJECTION ADD-ON PX Left 06/17/2022 Laterality: Left; Surgeon: Isreal Sigala MD; Location: [facility] OR EGD W/ DILATION BALLOON N/A 12/01/2021 Laterality: N/A; Surgeon: Indra Parrish DO; Location: [facility] ENDOSCOPY SHOULDER ARTHROSCOPY Left 06/18/2021 REMOVAL CENTRAL VENOUS ACCESS DEVICE TUNNELED W/ PORT PUMP Left 09/13/2019 Laterality: Left; Surgeon: Eduardo Muñoz MD; Location: [facility] INTERVENTIONAL RADIOLOGY (VIR) EGD W/ DILATION BALLOON N/A 06/30/2018 Laterality: N/A; Surgeon: Indra Parrish DO; Location: [facility]COPY EGD DIAGNOSTIC N/A 04/07/2018 Laterality: N/A; Surgeon: Wilner Leigh MD; Location: [facility]COPY COLONOSCOPY DIAGNOSTIC N/A 04/07/2018 Laterality: N/A; Surgeon: Wilner Leigh MD; Location: [facility] ENDOSCOPY KNEE REPLACEMENT Right 05/2015 done at [place]--CC ARTHROPLASTY KNEE TOTAL Right 04/2015 INSERTION PICC W/ PORT PUMP 2014 power port COLONOSCOPY DIAGNOSTIC 2006 SALPINGO-OOPHORECTOMY OPEN N/A 1983 APPENDECTOMY OPEN 1983 TONSILLECTOMY ADENOIDECTOMY 1968 EGD DIAGNOSTIC 10 months ago Family History Problem Relation Age of Onset Hypertension Mother Lipid Disorder Mother Depression Mother Clotting Disorder Mother hx of DVT Liver Disease Mother Dementia Father Arrhythmia Father A-Fib Anesth Problems Sister post-op n/v Breast Cancer Maternal Aunt Cancer- Other Maternal Uncle melanoma Ovarian Cancer Paternal Aunt Cancer Paternal Aunt brain Lung Cancer Maternal Grandfather Hypertension Son Lipid Disorder Daughter No known problems Daughter Autism Grandson Social History Socioeconomic History Marital status: Occupational History Employer: RETIRED Tobacco Use Smoking status: Former Current packs/day: 0.00 Average packs/day: 0.8 packs/day for 35.0 years (26.3 ttl pk-yrs) Types: Cigarettes Start date: 04/23/1978 Quit date: 04/23/2013 Years since quittin.3 Smokeless tobacco: Never Vaping Use Vaping status: Never Used Substance and Sexual Activity Alcohol use: Yes Alcohol/week: 3.0 standard drinks of alcohol Types: 3 Cans of beer per week Comment: Hx ETOH abuse Drug use: Never Sexual activity: Not Currently control/protection: Menopause Other Topics Concern Domestic Violence No Social Determinants of Health Financial Resource Strain: Low Risk (11/10/2022) Received from [facility] Overall Financial Resource Strain (CARDIA) Difficulty of Paying Living Expenses: Not hard at all Food Insecurity: No Food Insecurity (11/10/2022) Received from [facility] Hunger Vital Sign Worried About Running Out of Food in the Last Year: Never true Ran Out of Food in the Last Year: Never true Transportation Needs: No Transportation Needs (11/10/2022) Received from [facility] PRAPARE - Transportation Lack of Transportation (Medical): No Lack of Transportation (Non-Medical): No Housing Stability: Low Risk (11/10/2022) Received from [facility] Housing Stability Vital Sign Unable to Pay for Housing in the Last Year: No Number of Places Lived in the Last Year: 1 Unstable Housing in the Last Year: No Current Outpatient Medications: Albuterol (Ventolin HFA) 108 (90 Base) MCG/ACT Aero Soln inhaler, Inhale 2 puffs every 6 hours as needed for Wheezing., Disp: 18 g, Rfl: 0 Allopurinol 100 MG tablet, Take 1 tablet by mouth daily. (Patient taking differently: Take 1 tabletby mouth daily. AM), Disp: 90 tablet, Rfl: 3 Aspirin (SB Low Dose ASA EC) [address] tablet, Take 1 tablet by mouth daily with breakfast. OTC,Disp: , Rfl: buPROPion (Wellbutrin XL) 300 MG tablet XL, Take 1 tablet by mouth every morning before breakfast.,Disp: 90 tablet, Rfl: 0 carveDILOL (Coreg) 12.5 MG tablet, Take 1 tablet by mouth 2 times daily with meals. Cancel previousrefills, Disp: 180 tablet, Rfl: 0 Cetirizine 10 MG tablet, Take 1 tablet by mouth daily. OTC, Disp: , Rfl: cyanocobalamin 1000 MCG tablet, Take 1 tablet by mouth daily. Chew 1 tab q daily, Disp: 90 tablet, Rfl: 0 Escitalopram (Lexapro) 10 MG tablet, Take 1 tablet by mouth daily., Disp: 90 tablet, Rfl: 0 Evolocumab (Repatha SureClick) 140 MG/ML Solution Auto-injector injection, Inject 1 mL under the skin every 14 days. SATURDAYS, Disp: 6 mL, Rfl: 3 fenofibrate 160 MG tablet, Take 1 tablet by mouth daily. Cancel previous refills, Disp: 90 tablet, Rfl: 0 fluticasone (Flonase Allergy Relief) 50 MCG/ACT Suspension nasal spray, 2 sprays by Nasal route daily as needed. OTC, Disp: , Rfl: Folic acid 1 MG tablet, Take 1 tablet by mouth daily., Disp: 90 tablet, Rfl: 0 Lisinopril 5 MG tablet, Take 1 tablet by mouth daily. Cancel previous refills, Disp: 90 tablet, Rfl: 0 magnesium oxide 400 (240 Mg) MG, Take 1 tablet by mouth 2 times daily with meals., Disp: , Rfl: Pantoprazole (Protonix) [address] tablet DR, Take 1 tablet by mouth 2 times daily (take before meals)., Disp: 180 tablet, Rfl: 0 traZODone 100 MG tablet, Take 1 tablet by mouth at bedtime., Disp: 90 tablet, Rfl: 0 triamterene-hydrochlorothiazide (Dyazide) 37.5-25 MG per capsule, Take 1 capsule by mouth daily. Cancel previous refills, Disp: 90 capsule, Rfl: 0 Allergies Allergen Reactions Nsaids Has CKD-3a, and Anemia documented in this [facility] [place]09-17-2024 History of Present illness Narrative* Fernie Paredes DO - 07/10/2024 2:00 PM EDT Subjective History of Present Illness HISTORY OF PRESENT ILLNESS: 64 y.o. adult presents with complaints of: Encounter Diagnoses Name Primary? Type 2 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 disease, without long-term current use of insulin Yes Hyperlipidemia LDL goal <70 Hyperthyroidism Hypertriglyceridemia Hypomagnesemia Idiopathic chronic gout without tophus, unspecified site Hypoproteinemia Stage 3a chronic kidney disease Mixed stress and urge incontinence Left renal stone Iron deficiency anemia, unspecified iron deficiency anemia type Renal cyst, right Uterine leiomyoma, unspecified location B12 deficiency PVC's (premature ventricular contractions) Presence of Watchman left atrial appendage closure device Paroxysmal atrial fibrillation PAC (premature atrial contraction) Ischemic stroke Internal and external hemorrhoids without complication Hypertensive heart disease without heart failure Essential hypertension Cerebrovascular accident (CVA), unspecified mechanism Central retinal artery occlusion of left eye Odynophagia Bradycardia Bilateral carotid artery stenosis-30% Right, 60% Left Atherosclerosis of abdominal aorta Pulmonary emphysema, unspecified emphysema type PERCY on CPAP-Off BiPAP due to intolerance Non-seasonal allergic rhinitis, unspecified trigger Elevated LFTs Moderate persistent asthma without complication Hiatal hernia Chronic sinusitis, unspecified location Chronic obstructive pulmonary disease, unspecified COPD type Folate deficiency Fatty liver Hepatomegaly Vitamin D deficiency Gastroesophageal reflux disease without esophagitis Esophagitis, Clyo grade A Esophageal stenosis Duodenal diverticulum Chronic gastritis without bleeding, unspecified gastritis type Chronic midline low back pain without sciatica Combined forms of age-related cataract, bilateral Hypermetropia of left eye Lacunar infarction Blepharitis of upper eyelids of both eyes, unspecified type Allergic conjunctivitis of both eyes Other optic atrophy, left eye PCO (posterior capsular opacification), left Pinguecula of both eyes Posterior capsular opacification non visually significant, both eyes-L>R Regular astigmatism of left eye Unspecified amblyopia, right eye Spondylosis of lumbar region without myelopathy or radiculopathy Spondylosis of cervical region without myelopathy or radiculopathy Spinal stenosis of lumbar region without neurogenic claudication Sacroiliitis Primary osteoarthritis of both knees Primary osteoarthritis of both hips-Mild Other idiopathic scoliosis, lumbar region Osteopenia determined by x-ray HNP (herniated nucleus pulposus), lumbar-Multi level Seborrheic keratosis, inflamed-Left thigh-S/P Excision CLL (chronic lymphocytic leukemia) Macrocytosis Anxiety and depression ASCUS of cervix with negative high risk HPV Bilateral dry eyes 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 Fib with watchman, Iron deficiency anemia and hypomagnesemia. Recent Mg 1.5, A1C 5.9, Glucose 123, TIBC 451, HcT 35.5, NA++ 136, TG 434, LDL 25, GFR 56, AST 37. All other labs WNL. Uses 3 beers per week on average. Non Smoker, former. +Fam Hx Alzheimer's in Father. Weight down, +Minimal, intermittent LBP. No radiation, numbness or weakness. No blurred vision.No C.P., SOB, Edema, Palpitations, Dizziness, Fatigue, GERD, Melena, Hematochezia, Dysuria, or Frequency. +Odynophagia. All others negative on ROS. Off Plavix. Needs refills. Objective Review of Systems Constitutional: Positive for unexpected weight change (Weight down). Negative for fatigue. HENT: Positive for trouble swallowing (odynophagia). Eyes: Negative for visual disturbance. Respiratory: Negative for shortness of breath. Cardiovascular: Negative for chest pain, palpitations and leg swelling. Gastrointestinal: Negative for abdominal pain and blood in stool. No GERD Genitourinary: Negative for dysuria and frequency. Musculoskeletal: Positive for back pain (minimal LBP). Negative for arthralgias. Neurological: Negative for dizziness, weakness and numbness. Psychiatric/Behavioral: Negative for dysphoric mood and sleep disturbance. The patient is not nervous/anxious. All other systems reviewed and are negative. Psych Review of Symptoms: Depressive Symptoms: No fatigue. Vitals: Blood pressure 129/60, pulse 68, temperature 97.5 F (36.4 C), resp. rate 14, height 1.651 m(5' 5), weight 98.8 kg (217 lb 12.8 oz), SpO2 96%, not currently . Physical Exam Vitals and nursing note reviewed. Constitutional: General: Sarah is not in acute distress. Appearance: Normal appearance. Sarah is normal weight. Sarah is not ill-appearing, toxic-appearing ordiaphoretic. HENT: Head: Normocephalic and atraumatic. Right Ear: Tympanic membrane, ear canal and external ear normal. There is no impacted cerumen. Left Ear: Tympanic membrane, ear canal and external ear normal. There is no impacted cerumen. Nose: Nose normal. No congestion or rhinorrhea. Mouth/Throat: Mouth: Mucous membranes are moist. Pharynx: Oropharynx is clear. No oropharyngeal exudate or posterior oropharyngeal erythema. Eyes: General: No scleral icterus. Right eye: No discharge. Left eye: No discharge. Extraocular Movements: Extraocular movements intact. Conjunctiva/sclera: Conjunctivae normal. Pupils: Pupils are equal, round, and reactive to light. Neck: Thyroid: No thyromegaly. Vascular: No carotid bruit. Cardiovascular: Rate and Rhythm: Normal rate and regular rhythm. Pulses: Normal pulses. Heart sounds: Normal heart sounds. No murmur heard. No gallop. Pulmonary: Effort: Pulmonary effort is normal. Breath sounds: Normal breath sounds. No wheezing or rhonchi. Chest: Chest wall: No tenderness. Abdominal: General: Abdomen is flat. Bowel sounds are normal. There is no distension. Palpations: Abdomen is soft. There is no mass. Tenderness: There is no abdominal tenderness. There is no right CVA tenderness, left CVA tenderness, guarding or rebound. Hernia: No hernia is present. Musculoskeletal: General: No swelling, tenderness, deformity or signs of injury. Normal range of motion. Cervical back: Normal range of motion and neck supple. No rigidity. No muscular tenderness. Right lower leg: No edema. Left lower leg: No edema. Lymphadenopathy: Cervical: No cervical adenopathy. Skin: General: Skin is warm. Coloration: Skin is not jaundiced. Findings: No bruising, erythema or rash. Neurological: General: No focal deficit present. Mental Status: Sarah is alert and oriented to person, place, and time. Mental status is at baseline. Cranial Nerves: No cranial nerve deficit. Sensory: No sensory deficit. Motor: No weakness or abnormal muscle tone. Coordination: Coordination normal. Gait: Gait normal. Deep Tendon Reflexes: Reflexes are normal and symmetric. Reflexes normal. Psychiatric: Mood and Affect: Mood normal. Behavior: Behavior normal. Thought Content: Thought content normal. Judgment: Judgment normal. Comments: Discussed the importance of sharing/withholding information with the patient. The patientdenies suicide or homicide intent, and is competent. Neurological Exam Mental Status Alert. Oriented to person, place, and time. Cranial Nerves CN III, IV, : Extraocular movements intact bilaterally. Pupils equal round and reactive to light bilaterally. Reflexes Deep tendon reflexes are 2+ and symmetric in all four extremities. Gait Normal gait. Assessment and Plan DC Plavix. Refills given all meds requested. We will call for last Dr. Sigala notes from approx 1 month ago and alaina 08-21-[address] Sigala. COVID-19, Shingrix and Arexvy vaccines declined. Risks discussed. Alaina 07-17, 08-02, 08-07 and 08-14 with P.T. at . Patient given phone number to call and schedule Iron deficiency anemia eval with as recently referred. Alaina a NON fasting magnesium level on 07-16-24 at [facility]. Alaina 08-21-[address] Sigala. Alaina 09-19-[address] Naty Bhakta, Heme Onc at [facility] and get Flu shot same day with her, and ask if can indeed get Shingrix. Alaina with Dr. Ciro Lyles. Alaina 10-03-24, sooner prn. Alaina 10-31-[address] Davison. Alaina with Cardiology Dr.Kimberly Brush for Watchman alaina and q 12 months thereafter. Alaina 01-02-[address] Philip at [facility] and q yearly. Alaina all labs, UA< Vit D, A1C, Fe, B12, Folate, Mg, PTH, UA CR and UA for micro-albumin in . Alaina PAP in 2024 with 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 NP. Alaina 3-D Mammogram and DEXA in . Alaina 03-04-[address] Calderon. Alaina Colon in , unless Dr. Ellis feels needs repeated sooner when seen in the near future. Total time spent 35 minutes, excluding tests and procedures.Diet and lifestyle counseling was given, and care coordinated. OAR[facility] report was received and assessed, and is consistent with the medications prescribed. Thank you for choosing Dr. Fernie Paredes s Office at [facility] for your healthcare needs. The patients' entire past medical, surgical, family, social history, allergies, medications, recent labs, recent imaging and [employer] commerce consultant letters were reviewed and updated. ASSESSMENT & PLAN: Encounter Diagnoses Name Primary? Type 2 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 disease, without long-term current use of insulin Yes Hyperlipidemia LDL goal <70 Hyperthyroidism Hypertriglyceridemia Hypomagnesemia Idiopathic chronic gout without tophus, unspecified site Hypoproteinemia Stage 3a chronic kidney disease Mixed stress and urge incontinence Left renal stone Iron deficiency anemia, unspecified iron deficiency anemia type Renal cyst, right Uterine leiomyoma, unspecified location B12 deficiency PVC's (premature ventricular contractions) Presence of Watchman left atrial appendage closure device Paroxysmal atrial fibrillation PAC (premature atrial contraction) Ischemic stroke Internal and external hemorrhoids without complication Hypertensive heart disease without heart failure Essential hypertension Cerebrovascular accident (CVA), unspecified mechanism Central retinal artery occlusion of left eye Odynophagia Bradycardia Bilateral carotid artery stenosis-30% Right, 60% Left Atherosclerosis of abdominal aorta Pulmonary emphysema, unspecified emphysema type PERCY on CPAP-Off BiPAP due to intolerance Non-seasonal allergic rhinitis, unspecified trigger Elevated LFTs Moderate persistent asthma without complication Hiatal hernia Chronic sinusitis, unspecified location Chronic obstructive pulmonary disease, unspecified COPD type Folate deficiency Fatty liver Hepatomegaly Vitamin D deficiency Gastroesophageal reflux disease without esophagitis Esophagitis, Clyo grade A Esophageal stenosis Duodenal diverticulum Chronic gastritis without bleeding, unspecified gastritis type Chronic midline low back pain without sciatica Combined forms of age-related cataract, bilateral Hypermetropia of left eye Lacunar infarction Blepharitis of upper eyelids of both eyes, unspecified type Allergic conjunctivitis of both eyes Other optic atrophy, left eye PCO (posterior capsular opacification), left Pinguecula of both eyes Posterior capsular opacification non visually significant, both eyes-L>R Regular astigmatism of left eye Unspecified amblyopia, right eye Spondylosis of lumbar region without myelopathy or radiculopathy Spondylosis of cervical region without myelopathy or radiculopathy Spinal stenosis of lumbar region without neurogenic claudication Sacroiliitis Primary osteoarthritis of both knees Primary osteoarthritis of both hips-Mild Other idiopathic scoliosis, lumbar region Osteopenia determined by x-ray HNP (herniated nucleus pulposus), lumbar-Multi level Seborrheic keratosis, inflamed-Left thigh-S/P Excision CLL (chronic lymphocytic leukemia) Macrocytosis Anxiety and depression ASCUS of cervix with negative high risk HPV Bilateral dry eyes 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 Chronic anticoagulation Fatigue, unspecified type Fatty food intolerance Hyponatremia Insomnia, unspecified type Irregular astigmatism of right eye Low HDL (under 40) Myopia of right eye Obesity (BMI 30.0-34.9) Presbyopia Pseudophakia of both eyes Former smoker-Quit 2011 History of cataract extraction, unspecified laterality History of [id number] 09-30-2020 History of ETOH abuse Vision loss of left eye S/P unilateral salpingo-oophorectomy S/P total knee arthroplasty, right Family history of Alzheimer's disease-Father No orders of the defined types were placed in this encounter. Medications Discontinued During This Encounter Medication Reason hydroCODone-acetaminophen 5-325 MG tablet Clopidogrel 75 MG tablet Cetirizine 10 MG tablet carveDILOL (Coreg) 12.5 MG tablet Reorder fenofibrate 160 MG tablet Reorder triamterene-hydrochlorothiazide (Dyazide) 37.5-25 MG per capsule Reorder Lisinopril 5 MG tablet Reorder buPROPion (Wellbutrin XL) 300 MG tablet XL Reorder cyanocobalamin 1000 MCG tablet Reorder Folic acid 1 MG tablet Reorder Pantoprazole (Protonix) [address] tablet DR Reorder traZODone 100 MG tablet Reorder Escitalopram (Lexapro) 10 MG tablet Reorder Current Outpatient Medications Medication Sig Dispense Refill buPROPion (Wellbutrin XL) 300 MG tablet XL Take 1 tablet by mouth every morning before breakfast. 90 tablet 0 carveDILOL (Coreg) 12.5 MG tablet Take 1 tablet by mouth 2 times daily with meals. Cancel previous refills 180 tablet 0 Cetirizine 10 MG tablet Take 1 tablet by mouth daily. OTC cyanocobalamin 1000 MCG tablet Take 1 tablet by mouth daily. Chew 1 tab q daily 90 tablet 0 Escitalopram (Lexapro) 10 MG tablet Take 1 tablet by mouth daily. 90 tablet 0 fenofibrate 160 MG tablet Take 1 tablet by mouth daily. Cancel previous refills 90 tablet 0 Folic acid 1 MG tablet Take 1 tablet by mouth daily. 90 tablet 0 Lisinopril 5 MG tablet Take 1 tablet by mouth daily. Cancel previous refills 90 tablet 0 Pantoprazole (Protonix) [address] tablet DR Take 1 tablet by mouth 2 times daily (take before meals). 180 tablet 0 traZODone 100 MG tablet Take 1 tablet by mouth at bedtime. 90 tablet 0 triamterene-hydrochlorothiazide (Dyazide) 37.5-25 MG per capsule Take 1 capsule by mouth daily. Cancel previous refills 90 capsule 0 Albuterol (Ventolin HFA) 108 (90 Base) MCG/ACT Aero Soln inhaler Inhale 2 puffs every 6 hours as needed for Wheezing. 18 g 0 Allopurinol 100 MG tablet Take 1 tablet by mouth daily. (Patient taking differently: Take 1 tablet by mouth daily. AM) 90 tablet 3 Aspirin (SB Low Dose ASA EC) [address] tablet Take 1 tablet by mouth daily with breakfast. OTC Evolocumab (Repatha SureClick) 140 MG/ML Solution Auto-injector injection Inject 1 mL under the skin every 14 days. (Patient taking differently: Inject 1 mL under the skin every 14 days. SATURDAYS) 2mL 11 fluticasone (Flonase Allergy Relief) 50 MCG/ACT Suspension nasal spray 2 sprays by Nasal route daily as needed. OTC magnesium oxide 400 (240 Mg) MG Take 1 tablet by mouth 2 times daily with meals. No current facility-administered medications for this visit. Counseling given: No Follow up appointment(s) have been discussed with the patient. The patient is given an After Visit Summary sheet that lists all of their medications with directions, their allergies, orders placed during this encounter, immunization dates, and follow- up instructions. Fernie Paredes DO [address] [place] [id number] This note is electronically signed in the electronic medical record. [facility] Instructions* Patient Instructions* Fernie Paredes DO - 07/10/2024 2:00 PM EDT Do NON fasting lab on 07-16-24 documented in this [facility] Evaluation note* Diagnosis Type 2 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 disease, without long-term current use of insulin- Primary Hyperlipidemia LDL goal <70 Other and unspecified hyperlipidemia Hyperthyroidism Thyrotoxicosis without mention of goiter or other cause, without mention of thyrotoxic crisis or storm Hypertriglyceridemia Pure hyperglyceridemia Hypomagnesemia Disorders of magnesium metabolism Idiopathic chronic gout without tophus, unspecified site Hypoproteinemia Other disorders of plasma protein metabolism Stage 3a chronic kidney disease Mixed stress and urge incontinence Left renal stone Iron deficiency anemia, unspecified iron deficiency anemia type Renal cyst, right Unspecified congenital cystic kidney disease Uterine leiomyoma, unspecified location B12 deficiency Other B-complex deficiencies PVC's (premature ventricular contractions) Other premature beats Presence of Watchman left atrial appendage closure device Paroxysmal atrial fibrillation Atrial fibrillation PAC (premature atrial contraction) Supraventricular premature beats Ischemic stroke Internal and external hemorrhoids without complication Internal hemorrhoids without mention of complication Hypertensive heart disease without heart failure Unspecified hypertensive heart disease without heart failure Essential hypertension Unspecified essential hypertension Cerebrovascular accident (CVA), unspecified mechanism Central retinal artery occlusion of left eye Central artery occlusion of retina Odynophagia Dysphagia, unspecified Bradycardia Other specified cardiac dysrhythmias Bilateral carotid artery stenosis-30% Right, 60% Left Occlusion and stenosis of multiple and bilateral precerebral arteries without mention of cerebral infarction Atherosclerosis of abdominal aorta Atherosclerosis of aorta Pulmonary emphysema, unspecified emphysema type PERCY on CPAP-Off BiPAP due to intolerance Obstructive sleep apnea (adult) (pediatric) Non-seasonal allergic rhinitis, unspecified trigger Elevated LFTs Other abnormal blood chemistry Moderate persistent asthma without complication Unspecified asthma Hiatal hernia Diaphragmatic hernia without mention of obstruction or gangrene Chronic sinusitis, unspecified location Chronic obstructive pulmonary disease, unspecified COPD type Folate deficiency Other B-complex deficiencies Fatty liver Other chronic nonalcoholic liver disease Hepatomegaly Vitamin D deficiency Unspecified vitamin D deficiency Gastroesophageal reflux disease without esophagitis Esophageal reflux Esophagitis, Clyo grade A Esophageal stenosis Stricture and stenosis of esophagus Duodenal diverticulum Diverticulosis of small intestine (without mention of hemorrhage) Chronic gastritis without bleeding, unspecified gastritis type Chronic midline low back pain without sciatica Combined forms of age-related cataract, bilateral Hypermetropia of left eye Hypermetropia Lacunar infarction Unspecified cerebral artery occlusion with cerebral infarction Blepharitis of upper eyelids of both eyes, unspecified type Allergic conjunctivitis of both eyes Other chronic allergic conjunctivitis Other optic atrophy, left eye PCO (posterior capsular opacification), left After-cataract, unspecified Pinguecula of both eyes Pinguecula Posterior capsular opacification non visually significant, both eyes-L>R Other after-cataract, not obscuring vision Regular astigmatism of left eye Regular astigmatism Unspecified amblyopia, right eye Spondylosis of lumbar region without myelopathy or radiculopathy Lumbosacral spondylosis without myelopathy Spondylosis of cervical region without myelopathy or radiculopathy Cervical spondylosis without myelopathy Spinal stenosis of lumbar region without neurogenic claudication Spinal stenosis, lumbar region, without neurogenic claudication Sacroiliitis Sacroiliitis, not elsewhere classified Primary osteoarthritis of both knees Primary localized osteoarthrosis, lower leg Primary osteoarthritis of both hips-Mild Primary localized osteoarthrosis, pelvic region and thigh Other idiopathic scoliosis, lumbar region Osteopenia determined by x-ray HNP (herniated nucleus pulposus), lumbar-Multi level Displacement of lumbar intervertebral disc without myelopathy Seborrheic keratosis, inflamed-Left thigh-S/P Excision Inflamed seborrheic keratosis CLL (chronic lymphocytic leukemia) Chronic lymphoid leukemia, without mention of having achieved remission Macrocytosis Other specified diseases of blood and blood-forming organs Anxiety and depression Dysthymic disorder ASCUS of cervix with negative high risk HPV Bilateral dry eyes Tear film insufficiency, unspecified 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 Profound impairment, one eye, Impairment level not further specified Chronic anticoagulation Encounter for long-term (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 of anticoagulants Fatigue, unspecified type Fatty food intolerance Other specified intestinal malabsorption Hyponatremia Hyposmolality and/or hyponatremia Insomnia, unspecified type Irregular astigmatism of right eye Irregular astigmatism Low HDL (under 40) Lipoprotein deficiencies Myopia of right eye Myopia Obesity (BMI 30.0-34.9) Obesity, unspecified Presbyopia Pseudophakia of both eyes Lens replaced by other means Former smoker-Quit 2011 Personal history of tobacco use, presenting hazards to health History of cataract extraction, unspecified laterality History of [id number] 09-30-2020 History of ETOH abuse Nondependent alcohol abuse, in remission Vision loss of left eye Unqualified visual loss, one eye S/P unilateral salpingo-oophorectomy Acquired absence of organ, genital organs S/P total knee arthroplasty, right Family history of Alzheimer's disease-Father Family history of other condition documented in this encounter [facility] HISTORY OF PRESENT ILLNESS Ms. Elena Galeano is a 64 y.o. pleasant female with a history of paroxysmal atrial fibrillation, hypertension, history of stroke who presents today for her 6-month post LAAO procedure with Dr. Christie. Patient's medical comorbidity also includes CLL, NHL (nodular histiocytic lymphoma), chronic anemia Current Outpatient Medications Medication Instructions aspirin 81 mg, Oral, Daily buPROPion (WELLBUTRIN XL) 300 mg, Oral, Every morning before breakfast carvediloL (COREG) 12.5 mg, Oral, 2 times daily with meals cetirizine (ZYRTEC) 10 mg, Oral, Daily clopidogreL (PLAVIX) 75 mg tablet Take 300 mg (4 tablets) the evening prior to procedure, then take 75 mg (1 tablet) once daily starting the morning of your procedure. escitalopram oxalate (LEXAPRO) 20 mg, Oral, Daily fenofibrate 160 mg, Oral, Daily, Give with food folic acid (FOLVITE) 1 mg, Oral, Daily lisinopriL (PRINIVIL,ZESTRIL) 5 mg, Oral, Daily losartan (COZAAR) 25 mg, Oral, Daily pantoprazole (PROTONIX) 40 mg, Oral, Daily Praluent Pen 75 mg/mL injection 1 mL, Subcutaneous, Every 21 days traZODone (DESYREL) 100 mg, Oral, Nightly PRN triamterene-hydrochlorothiazide (DYAZIDE) 37.5-25 mg per capsule 1 capsule, Oral, Daily CARDIOVASCULAR & METABOLIC PROBLEMS PAFIB-LAAO 24 mm Watchman FLX 11/24/2023 Hypertension History of stroke CLL NHL Chronic anemia ASSESSMENT & PLAN: Is a pleasant 64-year-old female who follows with primary gravity prospecting observer helper Dr. Calderon with [facility] cardiology. She is status post [address] Christie on 11/24/2023. She has been compliant with her dual antiplatelet therapy, Dyazide, Praluent, lisinopril, fenofibrate, carvedilol. She is scheduled for a CT MARY LOU study on 05/31/2024. She is doing well she has no complaints of chest pain shortness of breath orthopnea PND lightheadedness dizziness palpitation peripheral edema near syncope/syncope. On physical exam she is euvolemic. Continue medications the same. CT MARY LOU study is scheduled for 05/31/2024. We will review CT MARY LOU study and then patient can be then discontinued off her Plavix therapy and then she will remain on single antiplatelet therapy with aspirin EC 81 mg daily. CBC with differential and BMP today RTC 6 months structural heart clinic Continue to follow with [facility] cardiology for primary cardiology needs. CARDIAC DIAGNOSTICS ECG (I independently reviewed EKG and revealed, sinus bradycardia, low voltage precordial leads): 05/22/2024 I personally reviewed other available cardiac imagings (i.e. echo, coronary angiography) and summarized findings under assessment above. OBJECTIVES BP (!) 153/68 (BP Location: Right arm, Patient Position: Sitting, BP Cuff Size: Adult) Pulse (!) 52 Ht 5' 5 Wt 97.5 kg (215 lb) SpO2 95% BMI 35.78 kg/m General Appearance: healthy-looking female. Not in acute distress Respiratory: good air entry bilaterally. No wheeze or crackles. Cardiovascular: good peripheral pulses. JVP is flat. Regular rate and rhythm. Normal S1-S2. No murmur/gallop/rub. Abdomen: soft. Non-tender. Non-distended. BRONSON: no peripheral edema. Skin: no rash. No cyanosis. No clubbing of fingers. Brian Brush, MSN, LINTER OPERATOR, RESIDENTIAL CARE OFFICER Interventional Cardiology/Structural Heart Disease Team [facility] AUTHENTICATED BY BRIAN BRUSH, ON 05/22/2024 10:47:18[facility] [id number] History of Present illness Narrative* Brian Brush CNP - 05/22/2024 10:25 AM EDT [facility] STRUCTURAL CARDIOLOGY CLINIC NOTE HISTORY OF PRESENT ILLNESS Ms. Elena Galeano is a 64 y.o. pleasant female with a history of paroxysmal atrial fibrillation, hypertension, history of stroke who presents today for her 6-month post LAAO procedure with Dr. Christie. Patient's medical comorbidity also includes CLL, NHL (nodular histiocytic lymphoma), chronic anemia Current Outpatient Medications Medication Instructions aspirin 81 mg, Oral, Daily buPROPion (WELLBUTRIN XL) 300 mg, Oral, Every morning before breakfast carvediloL (COREG) 12.5 mg, Oral, 2 times daily with meals cetirizine (ZYRTEC) 10 mg, Oral, Daily clopidogreL (PLAVIX) 75 mg tablet Take 300 mg (4 tablets) the evening prior to procedure, then take75 mg (1 tablet) once daily starting the morning of your procedure. escitalopram oxalate (LEXAPRO) 20 mg, Oral, Daily fenofibrate 160 mg, Oral, Daily, Give with food folic acid (FOLVITE) 1 mg, Oral, Daily lisinopriL (PRINIVIL,ZESTRIL) 5 mg, Oral, Daily losartan (COZAAR) 25 mg, Oral, Daily pantoprazole (PROTONIX) 40 mg, Oral, Daily Praluent Pen 75 mg/mL injection 1 mL, Subcutaneous, Every 21 days traZODone (DESYREL) 100 mg, Oral, Nightly PRN triamterene-hydrochlorothiazide (DYAZIDE) 37.5-25 mg per capsule 1 capsule, Oral, Daily CARDIOVASCULAR & METABOLIC PROBLEMS PAFIB-LAAO 24 mm Watchman FLX 11/24/2023 Hypertension History of stroke CLL NHL Chronic anemia ASSESSMENT & PLAN: Is a astrid 64-year-old female who follows with primary gravity prospecting observer helper Dr. Calderon with [facility] cardiology. She is status post [address] Christie on 11/24/2023. She hasbeen compliant with her dual antiplatelet therapy, Dyazide, Praluent, lisinopril, fenofibrate, carvedilol. She is scheduled for a CT MARY LOU study on 05/31/2024. She is doing well she has no complaints of chest pain shortness of breath orthopnea PND lightheadedness dizziness palpitation peripheral edema near syncope/syncope. On physical exam she is euvolemic. Continue medications the same. CT MARY LOU study is scheduled for 05/31/2024. We will review CT MARY LOU study and then patient can be then discontinued off her Plavix therapy and then she will remain on single antiplatelet therapy with aspirin EC 81 mg daily. CBC with differential and BMP today RTC 6 months structural heart clinic Continue to follow with [facility] cardiology for primary cardiology needs. CARDIAC DIAGNOSTICS ECG (I independently reviewed EKG and revealed, sinus bradycardia, low voltage precordial leads): 05/22/2024 I personally reviewed other available cardiac imagings (i.e. echo, coronary angiography) and summarized findings under assessment above. OBJECTIVES BP (!) 153/68 (BP Location: Right arm, Patient Position: Sitting, BP Cuff Size: Adult) Pulse (!) 52 Ht 5' 5 Wt 97.5 kg (215 lb) SpO2 95% BMI 35.78 kg/m General Appearance: healthy-looking female. Not in acute distress Respiratory: good air entry bilaterally. No wheeze or crackles. Cardiovascular: good peripheral pulses. JVP is flat. Regular rate and rhythm. Normal S1-S2. No murmur/gallop/rub. Abdomen: soft. Non-tender. Non-distended. BRONSON: no peripheral edema. Skin: no rash. No cyanosis. No clubbing of fingers. Brian Brush, MSN, LINTER OPERATOR, RESIDENTIAL CARE OFFICER Interventional Cardiology/Structural Heart Disease Team [facility] * Rose Mary Zepeda, SCOTT - 05/22/2024 10:12 AM EDT MODIFIED DERRICK Score Description 0 No symptoms at all 1 No significant disability despite symptoms; able to carry out all usual duties and activities 2 Slight disability; unable to carry out all previous activities, but able to look after own affairs without assistance 3 Moderate disability; requiring some help, but able to walk without assistance 4 Moderately severe disability; unable to walk without assistance and unable to attend to own bodily needs without assistance 5 Severe disability; bedridden, incontinent and requiring constant nursing care and attention 6 TOTAL (0-6): ___0____ MIGNON INDEX Activity Score FEEDING 0 = unable 5 = needs help cutting, spreading butter, etc., or requires modified diet 10 = independent ___10___ BATHING 0 = dependent 5 = independent (or in shower) ___5___ GROOMING 0 = needs to help with personal care 5 = independent face/hair/teeth/shaving (implements provided) __5____ DRESSING 0 = dependent 5 = needs help but can do about half unaided 10 = independent (including buttons, zips, laces, etc.) ___10___ BOWELS 0 = incontinent (or needs to be given enemas) 5 = occasional accident 10 = continent ___10___ BLADDER 0 = incontinent, or catheterized and unable to manage alone 5 = occasional accident 10 = continent ___10___ TOILET USE 0 = dependent 5 = needs some help, but can do something alone 10 = independent (on and off, dressing, wiping) ___10___ TRANSFERS (BED TO CHAIR AND BACK) 0 = unable, no sitting balance 5 = major help (one or two people, physical), can sit 10 = minor help (verbal or physical) 15 = independent ___15___ MOBILITY (ON LEVEL SURFACES) 0 = immobile or < 50 yards 5 = wheelchair independent, including corners, > 50 yards 10 = walks with help of one person (verbal or physical) > 50 yards 15 = independent (but may use any aid; for example, stick) > 50 yards __15____ STAIRS 0 = unable 5 = needs help (verbal, physical, carrying aid) 10 = independent ___10___ TOTAL (0-100): ___100___ documented in this [id number] History of Present illness Narrative* Janet Lugo OT - 05/03/2024 5:25 PM EDT 05/03/24 1659 Time In/Out Time In 9 Time Out 1718 Total Visit Time 19 minutes Total Treatment Time (skilled, billable minutes) 19 minutes Initial Evaluation/Screen Completed? yes General Information Patient Safety Communication Prior to Visit Nursing OT Existing Precautions/Restrictions fall;lifting;spinal;weight bearing (Log roll for bed mobility; once receives LSO after first follow up appointment, brace to be worn when OOB x 3 months at all times except during bathing/ hygiene-shirt to be worn beneath brace; no bending, lifting >5-10#, or twisting, except during self-care activities; conferred with nsg-- wet showers post-op day 2, but do not submerge in water such as tub or pool; WBAT-- All precautions/ restrictions were reviewed with pt and spouse) Lines/Tubes/Drains (Rehab Status) (IV) Home Setting Residence House (1-story) Lives With spouse Patient reported support for discharge planning (spouse) First floor setup bedroom;walk-in shower;grab bars Number of stairs to enter home 1 Number of stairs in home flight to basement for laundry, but pt reports she does not have to use atdischarge Stair Railings at Home entry - with rail Mobility Equipment Available 2 wheeled walker (cane; scooter) ADL Equipment Available shower chair (high rise toilet) Previous Level of Function Gross Functional Mobility independent;with modification Assistive Device (No AD for household mobility; scooter PRN for community mobility) Prior level ADL Overview Independent with all ADLs Prior Level of Function Details Reports previously independent prior to surgery. General Pain Documentation (Adult, OB, Peds) Presence of Pain reports pain/discomfort Pain Location (has reported R hip pain) Pain Management Interventions unnecessary movement avoided;positioning (nsg aware; declined further intervention) Select Pain Scale DVPRS (Defense and Veterans Pain Rating Scale) (Adult- Cognitively Intact) DVPRS (Defense and Veterans Pain Rating Scale) DVPRS: Rest 3- mild pain DVPRS: Activity 4- mild pain Cognition Overall Cognitive Status WFL Arousal/Alertness (slightly drowsy prior to initiation of activity) Vision Screen Currently wearing corrective lenses Yes (glasses) Vision History Has history of central retinal occlusion of L eye Subjective Patient Complaints (Denies visual changes) Speech Speech no gross deficits noted Successful Methods (Communication Strategies) verbal speech Hearing Hearing no gross deficits noted Sensation Sensation Comments Denies numbness/tingling RUE Strength RUE Overall Strength Within Functional Limits - able to perform ADL tasks with strength LUE Strength LUE Overall Strength Within Functional Limits - able to perform ADL tasks with strength Skin Integrity Skin Integrity Description Surgical incision Sit to Stand Transfer [place] Level: Sit->Stand contact guard assist Assistive Device: Sit->Stand gait belt;2 wheeled walker Skilled Rationale Positioning;Hand placement;Verbal cues Stand to Sit Transfer [place] Level: Stand->Sit contact guard assist Assistive Device: Stand->Sit gait belt;2 wheeled walker Skilled Rationale Positioning;Hand placement;Verbal cues Gross Coordination Gross Coordination bilat UE intact ADL Overview ADL Assessment UE Dressing Deficit;LE Dressing Deficit ADL Anticipated Performance (ADLs not directly observed this session) Bathing;Toileting ADL Comments Anticipate difficulty secondary to pain and recent surgical intervention. UE Dressing UE Dressing Assistance Minimal UE Dressing Location seated in chair UE Dressing Deficit Activity tolerance;Pull up arm;silver recovery operator head UE Dressing Intervention/Details Additional assist secondary to nausea post-op LE Dressing LE Dressing Assistance Moderate LE Dressing Location seated in chair;standing LE Dressing Deficit Increased time to complete;Activity tolerance;Pain;Balance;Don/doff R sock;Don/doff L sock;Thread RLE into pants;Thread LLE into pants;Don/doff R shoe;Don/doff L shoe LE Dressing Intervention/Details Pt attempt to thread pants per self, but was unable despite adaptive techniques discussed. Increased difficulty with RLE. Also required assist to doff hospital socks and to don bilat shoes. Reports has a hip kit at home from a previous planned knee surgery. States that she may plan to either have her spouse assist versus use the AE if still unable to safely complete independently after no longer nauseous and somewhat drowsy. Additional adaptive strategies discussed to maximize pt's independence level. Spouse also reports able to assist pt as needed post discharge. CURRENT -[facility] Daily Activity Inpatient Short Form Putting on/Taking Off Lower Body Clothing 2 - A Lot of Assistance Bathing 2 - A Lot of Assistance Toileting 2 - A Lot of Assistance Putting on/Taking Off Upper Body Clothing 3 - A Little Assistance Grooming 4 - No Assistance (while seated) Eating 4 - No Assistance (while seated) CURRENT -[facility] Activity Raw Score 17 CURRENT AM-[facility] Activity Functional Limitation/Modifier 50.11% Currently Impaired in Daily Activity - CK Patient Education/Instruction Learners Patient;Spouse Education provided Role of this discipline;Precautions/weight bearing status;Discharge recommendations; gentle postural exercises per protocol Assessment Patient admitted for sacroiliitis Underwent the following procedure by Dr. Sigala on 05/03/2024: Procedure(s) (LRB): ARTHRODESIS SACROILIAC JOINT MINIMALLY INVASIVE W/ TRANSFIXING DEVICE (Right) FLUOROSCOPY IN OR (Right) Assessment Presents with decreased activity tolerance, balance deficits, spinal precautions post-op, and post-op nausea/ pain, which are barriers to pt's occupational performance with ADLs and functional mobility. Reviewed pt precautions and safety. Discharge recommendations discussed with pt and spouse, including seated ADLs, with use of FWW when in standing. Reviewed walker safety and incorporation of walker during ADLs. Educational handouts issued. Denies further questions/ concerns for OT to address following encounter. Pt discharging home post OT encounter. OT Co-Eval/Treatment Information Co-evaluation/co-treatment performed? No simultaneous skilled care performed Clinical Impression Continue care plan no Performance Deficits (Impairments) Found arousal;balance;endurance;pain;pain with movement;transfers Global Functional Limitations bathing;dressing;grooming;toileting;functional mobility;ADL transfers;community integration;leisure integration;home management tasks Barriers to Treatment (Co-morbidities and/or personal factors) nausea; was unable to tolerate 2 previous attempts for evaluation secondary to nausea Therapy Frequency no therapy warranted (evaluation only secondary to pt discharging to home with spouse support as needed post evaluation) Discharge Destination Recommendation Home (with initial 24 hour supervision/ spouse assist as needed) Evaluation Complexity Occupational Profile and Client History Moderate - expanded history Assessment of Occupational Performance Moderate (3-5 performance deficits) Clinical Decision/Performance Deficits Moderate (detailed assessments w/several treatment options) Additional Session Details PPE used during patient interaction gloves Patient location/status at end of session chair;lines intact;RN aware Plan Plan for next session Evaluation only; further OT services discontinued due to pt discharging from hospital and without further questions/ concerns for OT to address. Attempt made for OT evaluation following PT, but pt nauseous and was unable to tolerate OT evaluation. Conferred with nsg for plan to return at 1630. Returned, with pt feeling better, but it was recommended to see other patient and then check back with this pt to allow her further time prior to recover from the nausea prior to initiation of OT evaluation. Conferred with pt's nurse again prior to completion of evaluation at 1659, and she does state to attempt. Improved tolerance from previous attempts. Janet Lugo OTR/L 05/03/2024 * Gonsalo Magdaleno, PT - 05/03/2024 3:23 PM EDT 05/03/24 0323 Surgery Information RN Approved Intervention as tolerated Referring Physician Dr. Sigala Surgery date 05/03/24 Type of Surgery Right SI fixation Home Setting Residence House (single story) Lives With significant other First floor setup bedroom;walk-in shower Number of stairs to enter home 1 Stair Railings at Home entry - with rail Mobility Equipment Available 2 wheeled walker;straight cane;scooter (Patient reports she typically uses no device for household mobility but has recently been using scooter for longer distance community mobility.) Patient Orientation Statement Patient Orientation Statement A&O x 4 Range of Motion RLE WFL LLE WFL Strength RLE WFL LLE WFL Functional Status Bed Mobility / Transfers The patient completed bed mobility with CGA to Min assist and transfers with CGA & FWW. Ambulation/Description of Gait Patient ambulated 20 feet with CGA & FWW. Cues were provided forposture, walker distance, & step length for gait normalization & reduced fall risk. Patientalso educated in sequencing for step ascend/descend. Balance Sitting normal Standing normal Walking normal Other Testing Sensation intact Comments/Special Tests Activity limited due to post surgery/anasthesia nausea & lethargy. Patient Instructions Patient Instruction patient was instructed in and/or given a handout on log rolling technique;other(see comments) (Patient was instructed and given handout for precautions and LE exercises.) Spine Surgury Goals Perform bed mobility independently/supervision (Bed mobility completed with CGA to Min assist) Perform sit to stand transfers with standby assistance/supervision (Transfers completed with CGA & FWW) Patient will ambulate with assistive device PRN and standby assistance/supervision for 100 feet (Patient ambulated 20 feet with CGA & FWW) Plan Treatment Today bed mobility;transfer training;gait training;patient instruction;family instruction Today's Treatment Included The patient was provided education regarding precautions, LE exercises, & log roll technique. The patient demonstrated good return performance of LE exercises and fair return performance of log roll technique. The patient also exhibited safe mobility with FWW. Activity limited due to post surgery/anasthesia nausea & lethargy. Initial Evaluation/Screen Completed? yes (no additional acute physical therapy interventions warranted at this time) Therapist Information License # [id number] General Information Pertinent History of Current Problem The patient is a 64 year old with sacroiliitis who underwent Right SI fixation. The patient was referred to physical therapy for post procedure education & mobility. Gonsalo Magdaleno PT [facility] operation note* Nery Germain RN - 05/03/2024 5:01 PM EDT Fernanda from OT here talking with patient. [facility] Nurse Note* Nery Germain RN - 05/03/2024 5:01 PM EDT Fernanda from OT here talking with patient. * Nery Germain RN - 05/03/2024 4:39 PM EDT States feels good now. Awaiting OT. * Nery Germain RN - 05/03/2024 4:23 PM EDT Discharge instructions reviewed with patient and her ; verbalized understanding and copy given to patient. It is best if you have a responsible adult with you for the next 24 hours. * Nery Germain RN - 05/03/2024 3:45 PM EDT C/o nausea; no emesis; medicated with Zofran. * Nery Germain RN - 05/03/2024 3:38 PM EDT Gonsalo contreras PT here talking with patient. * Nery Germain RN - 05/03/2024 2:54 PM EDT Discharged per stretcher to outpatient room 1 in stable condition and without complaints. Call light in reach. Pulse ox on; alarms/volume on. Stretcher in lowest position and brake on. * Nery Germain RN - 05/03/2024 2:32 PM EDT Denies nausea. States is warm enough. Demonstrates ability to deep breathe/cough effectively. * Denae Bower RN - 05/03/2024 2:17 PM EDT Patient transported to pacu via cart by REINIER INFANTE and DANIKA,GRAD INTERN. Monitors applied and report given to REINIER MALLOY * Denae Bower RN - 05/03/2024 1:25 PM EDT Family called per surgeon request that surgery has started and everything is going well [facility] Surgical operation note* Nery Germain RN - 05/03/2024 4:39 PM EDT States feels good now. Awaiting OT. [facility] Surgical operation note* Nery Germain RN - 05/03/2024 4:23 PM EDT Discharge instructions reviewed with patient and her ; verbalized understanding and copy given to patient. It is best if you have a responsible adult with you for the next 24 hours. [facility] Surgical operation note* Nery Germain RN - 05/03/2024 3:45 PM EDT C/o nausea; no emesis; medicated with Zofran. [facility] Surgical operation note* Nery Germain RN - 05/03/2024 3:38 PM EDT Gonsalo from PT here talking with patient. [facility] Surgical operation note* Nery Germain RN - 05/03/2024 2:54 PM EDT Discharged per stretcher to outpatient room 1 in stable condition and without complaints. Call light in reach. Pulse ox on; alarms/volume on. Stretcher in lowest position and brake on. [facility] Surgical operation note* Nery Germain RN - 05/03/2024 2:32 PM EDT Denies nausea. States is warm enough. Demonstrates ability to deep breathe/cough effectively. [facility] operation note* Denae Bower RN - 05/03/2024 2:17 PM EDT Patient transported to pacu via cart by ARELISRN and PS,GRAD INTERN. Monitors applied and report given to REINIER MLALOY [facility] Surgery Postoperative evaluation and management note* Brief Op Note - Isreal Sigala MD - 05/03/2024 2:00 PM EDT POST OPERATIVE/PROCEDURE NOTE Elena Galeano ([id number]) SURGEON Surgeons and Role: * Isreal Sigala MD - Tee Rosales ANESTHESIOLOGIST GRAD INTERN: Alan Estevez APRN-GRAD INTERN Student Nurse Freelance Photographer: Ronald Richards SURGICAL STAFF Single Pass Soil Stabilizer Operator: Denae Bower RN; Diana Rosales RN Scrub Person: Seda Philippe PROCEDURE PERFORMED Procedure(s) (LRB): ARTHRODESIS SACROILIAC JOINT MINIMALLY INVASIVE W/ TRANSFIXING DEVICE (Right) FLUOROSCOPY IN OR (Right) PRIMARY CLOSURE Yes ANESTHESIA (type of) General ESTIMATED BLOOD LOSS Minimal DRAINS None BLOOD PRODUCTS None FLUIDS Intake/Output Summary (Last 24 hours) at 05/03/2024 1400 Last data filed at 05/03/2024 1242 Gross per 24 hour Intake 1100 ml Output -- Net 1100 ml PRE OPERATIVE DIAGNOSIS Sacroiliitis [M46.1] POST OPERATIVE DIAGNOSIS Post-Op Diagnosis Codes: * Sacroiliitis [M46.1] FINDINGS No significant abnormalities CONDITION OF PATIENT Stable COMPLICATIONS None GRAFTS AND/OR IMPLANTS See OR Nursing Documentation SPECIMENS No specimen sent * No specimens in log * Isreal Sigala MD May 03, 2024 2:00 PM T [facility] Miscellaneous Notes* Brief Op Note - Isreal Sigala MD - 05/03/2024 2:00 PM EDT POST OPERATIVE/PROCEDURE NOTE Elena Galeano ([id number]) SURGEON Surgeons and Role: * Isreal Sigala MD - Tee Rosales ANESTHESIOLOGIST GRAD INTERN: Alan Estevez APRN-ROMAN Student Nurse Freelance Photographer: Ronald Richards SURGICAL STAFF Single Pass Soil Stabilizer Operator: Denae Bower RN; Diana Rosales RN Scrub Person: Seda Philippe PROCEDURE PERFORMED Procedure(s) (LRB): ARTHRODESIS SACROILIAC JOINT MINIMALLY INVASIVE W/ TRANSFIXING DEVICE (Right) FLUOROSCOPY IN OR (Right) PRIMARY CLOSURE Yes ANESTHESIA (type of) General ESTIMATED BLOOD LOSS Minimal DRAINS None BLOOD PRODUCTS None FLUIDS Intake/Output Summary (Last 24 hours) at 05/03/2024 1400 Last data filed at 05/03/2024 1242 Gross per 24 hour Intake 1100 ml Output -- Net 1100 ml PRE OPERATIVE DIAGNOSIS Sacroiliitis [M46.1] POST OPERATIVE DIAGNOSIS Post-Op Diagnosis Codes: * Sacroiliitis [M46.1] FINDINGS No significant abnormalities CONDITION OF PATIENT Stable COMPLICATIONS None GRAFTS AND/OR IMPLANTS See OR Nursing Documentation SPECIMENS No specimen sent * No specimens in log * Isreal Sigala MD May 03, 2024 2:00 PM documented in this encounter[facility] Surgical operation note* Denae Bower RN - 05/03/2024 1:25 PM EDT Family called per surgeon request that surgery has started and everything is going well [facility] Discharge instructions* Discharge Instructions* Nery Germain RN - 05/03/2024 7:50 AM EDT POST OPERATIVE SI JOINT FUSION HOME GOING INSTRUCTIONS DR [facility] ACTIVITIES: FOR TWELVE WEEKS: BLT's ( bending, lifting, twisting) for self care is ok. Do not lift anything that weighs more than 5-10 pounds. Gentle activities are encouraged. Short frequent walks are good for you. Increase your activity gradually. If your pain increases andyou get tired, rest. Do your exercises as instructed by the therapist. It is ok to use stairs. INCISION CARE: Keep your incision covered until post op day #2. Then gently remove your dressing. Do not remove adhesive/film tape from your incision, it will come off on it's own. You can shower and get incision wet on post op day #2. Do not soak in tub/pool for 4 weeks after surgery. Ice continuously x48hr on operative site. SELF CARE: If lumbar brace is ordered it will be dispersed at first postop clinic visit in 2-3 weeks. Wear it when you are out of bed. Do not wear brace while in bed, bathroom or shower. Always wear a t-shirt tucked into underwear to avoid rubbing of your underwears elastic band against your incision. Wear lumbar brace over a cotton t-shirt. OTHER INFORMATION: You can be a passenger in a car anytime. You can drive when you feel safe and are not taking narcotics. You will have good days and bad days, this is ok and part of the healing process. You may experience numbness, tingling, or pain in areas that you did not have before surgery, again, this is ok and part of the healing process. Wean your narcotics and muscle relaxants (if ordered) rapidly. You must take an [id number]-qabaxix stool softner while taking narcotic pain medication to prevent constipation. Colace, senna, dulcolax, and milk of magnesia are some options. No smoking, nicotine products, or anti-inflammatory products should be taken for 6 months. Your bone may not fuse or glue together if you do not follow this carefully. Please attend family, community, and/or religous events as soon as possible after your surgery, these functions help speed up your recovery. Please call the office [phone] if you have any questions or concerns during your postop recovery at home. If after hours and urgent please call answering service which the same number as the office. ANESTHESIA PROTOCOL FOR THE NEXT 24HOURS: NO DRIVING NO ALCOHOL NO SIGNING ANY LEGAL DOCUMENTS NO OPERATING ANY HEAVY POWER TOOLS WHEN TO NOTIFY YOUR SURGEON: Your temp is 101 or higher and not relieved by tylenol. You notice drainage , increased redness, warmth at your incision, You have increased pain not relieved by rest and medication. You have calf pain or unusual swelling in your legs. Shortness of breath, chest pain or abnormal coughing , call 911 FOLLOW UP APPT : Call Dr Sigala's office [phone] to scheduled a follow up appt for 2-3 weeks postop, please getyour x-rays the Tuesday before your clinic appt with Dr Sigala. When you make your follow up appt with our office, ask about xray instructions. You had a dose of [place] today at 3:03 pm; the earliest you may take your next dose is 9:03 pm this evening. documented in this [facility] [place]06-25-[facility] History of Present illness Narrative* Fernie Paredes, DO - 04/17/2024 1:00 PM EDT Subjective History of Present Illness HISTORY OF PRESENT ILLNESS: 64 y.o. adult presents with complaints of: Encounter Diagnoses Name Primary? Type 2 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 disease, without long-term current use of insulin Yes Hyperlipidemia LDL goal <70 Hyperthyroidism Hypertriglyceridemia Hypomagnesemia Hypoproteinemia Idiopathic chronic gout without tophus, unspecified site Vitamin D deficiency Hepatomegaly Gastroesophageal reflux disease without esophagitis Folate deficiency Fatty liver Esophagitis, Clyo grade A Esophageal stenosis Duodenal diverticulum Chronic gastritis without bleeding, unspecified gastritis type B12 deficiency PVC's (premature ventricular contractions) Presence of Watchman left atrial appendage closure device Paroxysmal atrial fibrillation PAC (premature atrial contraction) Ischemic stroke Internal and external hemorrhoids without complication Hypertensive heart disease without heart failure Essential hypertension Cerebrovascular accident (CVA), unspecified mechanism Central retinal artery occlusion of left eye Bradycardia Bilateral carotid artery stenosis-30% Right, 60% Left Atherosclerosis of abdominal aorta Pulmonary emphysema, unspecified emphysema type PERCY on CPAP-Off BiPAP due to intolerance Non-seasonal allergic rhinitis, unspecified trigger Moderate persistent asthma without complication Hiatal hernia Chronic sinusitis, unspecified location Chronic obstructive pulmonary disease, unspecified COPD type Chronic midline low back pain without sciatica Blepharitis of upper eyelids of both eyes, unspecified type Allergic conjunctivitis of both eyes Combined forms of age-related cataract, bilateral 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, left eye Sacroiliitis PCO (posterior capsular opacification), left Unspecified amblyopia, right eye Regular astigmatism of left eye Posterior capsular opacification non visually significant, both eyes-L>R Pinguecula of both eyes HNP (herniated nucleus pulposus), lumbar-Multi level Osteopenia determined by x-ray Other idiopathic scoliosis, lumbar region Primary osteoarthritis of both hips-Mild Primary osteoarthritis of both knees Spinal stenosis of lumbar region without neurogenic claudication Spondylosis of cervical region without myelopathy or radiculopathy Spondylosis of lumbar region without myelopathy or radiculopathy Anemia, unspecified type Left renal stone Mixed stress and urge incontinence Renal cyst, right Stage 3a chronic kidney disease Uterine leiomyoma, unspecified location Seborrheic keratosis, inflamed-Left thigh-S/P Excision CLL (chronic lymphocytic leukemia) Macrocytosis Anxiety and depression ASCUS of cervix with negative high risk HPV Elevated LFTs Chronic anticoagulation 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 Bilateral dry eyes Fatigue, unspecified type Fatty food intolerance Hyponatremia Insomnia, unspecified type Irregular astigmatism of right eye Low HDL (under 40) Myopia of right eye Obesity (BMI 30.0-34.9) Presbyopia Pseudophakia of both eyes Former smoker-Quit 2011 Vision loss of left eye S/P unilateral salpingo-oophorectomy S/P total knee arthroplasty, right History of ETOH abuse History of [id number] 09-30-2020 History of cataract extraction, unspecified laterality History of anemia Family history of Alzheimer's disease Type 2 DM, CKD-3a, A. Fib, sacroilitis and Hyperlipidemia. Needs refills. Non Smoker, former. No Fam Hx DM. Needs right SI joint fusion with Dr. Sigala in 2023 not yet scheduled. +LBP, daily, moderate. No radiation. No numbness or weakness. No blurred vision. No C.P., SOB, Edema, Palpitations, Dizziness, Fatigue, GERD, Melena, Hematochezia, Dysuria, or Frequency. All others negative on ROS. Wants to resume Lexapro. Recent US Thyroid is WNL. Recent repeat TSH is WNL. Recent GFR 67 and Glucose 128. Objective Review of Systems Constitutional: Negative for fatigue and unexpected weight change. Eyes: Negative for visual disturbance. Respiratory: Negative for shortness of breath. Cardiovascular: Negative for chest pain, palpitations and leg swelling. Gastrointestinal: Negative for abdominal pain and blood in stool. No GERD Genitourinary: Negative for dysuria and frequency. Musculoskeletal: Positive for back pain (moderate, daily). Negative for arthralgias. Neurological: Negative for dizziness, weakness and numbness. Psychiatric/Behavioral: Positive for dysphoric mood. Negative for sleep disturbance. The patient isnervous/anxious. All other systems reviewed and are negative. Psych Review of Symptoms: Depressive Symptoms: No fatigue. Vitals: Blood pressure 140/60, pulse 63, temperature 97.5 F (36.4 C), resp. rate 14, height 1.651 m(5' 5), weight 99.7 kg (219 lb 14.4 oz), SpO2 99%, not currently . Physical Exam Constitutional: General: Sarah is not in acute distress. Appearance: Normal appearance. Sarah is obese. Sarah is not ill-appearing. HENT: Head: Normocephalic and atraumatic. Nose: No congestion. Eyes: General: No scleral icterus. Right eye: No discharge. Left eye: No discharge. Extraocular Movements: Extraocular movements intact. Conjunctiva/sclera: Conjunctivae normal. Pupils: Pupils are equal, round, and reactive to light. Pulmonary: Effort: Pulmonary effort is normal. Breath sounds: No wheezing or rhonchi. Abdominal: General: Abdomen is flat. Bowel sounds are normal. There is no distension. Tenderness: There is no abdominal tenderness. Musculoskeletal: General: Normal range of motion. Cervical back: Normal range of motion and neck supple. No rigidity. No muscular tenderness. Right lower leg: No edema. Left lower leg: No edema. Skin: Coloration: Skin is not jaundiced. Findings: No bruising, erythema or rash. Neurological: General: No focal deficit present. Mental Status: Sarah is alert and oriented to person, place, and time. Mental status is at baseline. Psychiatric: Mood and Affect: Mood normal. Behavior: Behavior normal. Thought Content: Thought content normal. Judgment: Judgment normal. Neurological Exam Mental Status Alert. Oriented to person, place, and time. Cranial Nerves CN III, IV, : Extraocular movements intact bilaterally. Pupils equal round and reactive to light bilaterally. Assessment and Plan Refills given all meds requested. Resume Lexapro 10 mg 1 q daily in AM, #90, 0rf's. Monitor BP's athome and record. COVID-19, Shingrix and Arexvy declined. Risks discussed. We called Dr. Yumiko amador seen for Pre-op clearance within 30 days of surgery not yet re-scheduled from 05-03-24. Dr. Calderon is to determine how long to hold Plavix and ASA prior to surgery. Alaina 05-22-24 with Brian Brush at [facility] for [place] alaina. Check fasting, well hydrated CBC, CMP, A1C, Lipid, TSH, UA, Vit D, Fe, TIBC, Ferritin, B12, Folate, Mg, PTH, UA Cr and UA for micro-albumin on approx. 07-03-24 at [facility]. Alaina 07-10-24, sooner prn. Patient to re-schedule Pre-op clearance within 30 days of 8-[address] Sigala not yet re-scheduled. Alaina 09-19-[address] Naty Bhakta at [facility] and get HD Flu with her same day and discuss getting Shirix with her. Alaina 10-02-[address] Ciro Lyles. Alaina 10-31-[address] Davison. Alaina 01-02-[address] Tamera YANEZ. Alaina PAP in with 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 NP. Alaina 3-D Mammogram and DEXA in . Alaina 03-04-[address] Calderon and f or pre-op clearance sooner in or . No alaina needed with Aviva Mera NP. Alaina Colon in .Total time spent 57 minutes, excluding tests and procedures. Diet and lifestyle counseling was given, and care coordinated. OARRS report was received and assessed, and is consistent with the medications prescribed. Thank you for choosing Dr. Fernie Paredes s [facility] for your [facility]. The patients' entire past medical, surgical, family, social history, allergies, medications, recent labs, recent imaging and [employer] commerce consultant letters were reviewed and updated. ASSESSMENT & PLAN: Encounter Diagnoses Name Primary? Type 2 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 disease, without long-term current use of insulin Yes Hyperlipidemia LDL goal <70 Hyperthyroidism Hypertriglyceridemia Hypomagnesemia Hypoproteinemia Idiopathic chronic gout without tophus, unspecified site Vitamin D deficiency Hepatomegaly Gastroesophageal reflux disease without esophagitis Folate deficiency Fatty liver Esophagitis, Clyo grade A Esophageal stenosis Duodenal diverticulum Chronic gastritis without bleeding, unspecified gastritis type B12 deficiency PVC's (premature ventricular contractions) Presence of Watchman left atrial appendage closure device Paroxysmal atrial fibrillation PAC (premature atrial contraction) Ischemic stroke Internal and external hemorrhoids without complication Hypertensive heart disease without heart failure Essential hypertension Cerebrovascular accident (CVA), unspecified mechanism Central retinal artery occlusion of left eye Bradycardia Bilateral carotid artery stenosis-30% Right, 60% Left Atherosclerosis of abdominal aorta Pulmonary emphysema, unspecified emphysema type PERCY on CPAP-Off BiPAP due to intolerance Non-seasonal allergic rhinitis, unspecified trigger Moderate persistent asthma without complication Hiatal hernia Chronic sinusitis, unspecified location Chronic obstructive pulmonary disease, unspecified COPD type Chronic midline low back pain without sciatica Blepharitis of upper eyelids of both eyes, unspecified type Allergic conjunctivitis of both eyes Combined forms of age-related cataract, bilateral 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, left eye Sacroiliitis PCO (posterior capsular opacification), left Unspecified amblyopia, right eye Regular astigmatism of left eye Posterior capsular opacification non visually significant, both eyes-L>R Pinguecula of both eyes HNP (herniated nucleus pulposus), lumbar-Multi level Osteopenia determined by x-ray Other idiopathic scoliosis, lumbar region Primary osteoarthritis of both hips-Mild Primary osteoarthritis of both knees Spinal stenosis of lumbar region without neurogenic claudication Spondylosis of cervical region without myelopathy or radiculopathy Spondylosis of lumbar region without myelopathy or radiculopathy Anemia, unspecified type Left renal stone Mixed stress and urge incontinence Renal cyst, right Stage 3a chronic kidney disease Uterine leiomyoma, unspecified location Seborrheic keratosis, inflamed-Left thigh-S/P Excision CLL (chronic lymphocytic leukemia) Macrocytosis Anxiety and depression ASCUS of cervix with negative high risk HPV Elevated LFTs Chronic anticoagulation 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 Bilateral dry eyes Fatigue, unspecified type Fatty food intolerance Hyponatremia Insomnia, unspecified type Irregular astigmatism of right eye Low HDL (under 40) Myopia of right eye Obesity (BMI 30.0-34.9) Presbyopia Pseudophakia of both eyes Former smoker-Quit 2011 Vision loss of left eye S/P unilateral salpingo-oophorectomy S/P total knee arthroplasty, right History of ETOH abuse History of [id number] 09-30-2020 History of cataract extraction, unspecified laterality History of anemia Family history of Alzheimer's disease Orders Placed This Encounter Procedures CBC, EDIF, PLATELET Copy to Dr. Fernando Davison, DR. Wm. Calderon and Naty Bhakta Oncology at [facility] Standing Status: Future Standing Expiration Date: 04/17/2025 COMPREHENSIVE METABOLIC PANEL Standing Status: Future Standing Expiration Date: 04/17/2025 HEMOGLOBIN A1C Standing Status: Future Standing Expiration Date: 04/17/2025 LIPID PANEL W CALCULATED LDL Standing Status: Future Standing Expiration Date: 04/17/2025 TSH Standing Status: Future Standing Expiration Date: 04/17/2025 URIC ACID Standing Status: Future Standing Expiration Date: 04/17/2025 VITAMIN D (25-HYDROXY,TOTAL) Standing Status: Future Standing Expiration Date: 04/17/2025 MAGNESIUM Standing Status: Future Standing Expiration Date: 04/17/2025 PTH INTACT Standing Status: Future Standing Expiration Date: 04/17/2025 FERRITIN Standing Status: Future Standing Expiration Date: 04/17/2025 IRON/IRON BINDING/TRANSFERRIN Standing Status: Future Standing Expiration Date: 04/17/2025 FOLATE, SERUM Standing Status: Future Standing Expiration Date: 04/17/2025 VITAMIN B12 Standing Status: Future Standing Expiration Date: 04/17/2025 Medications Discontinued During This Encounter Medication Reason Aspirin [address] tablet buPROPion (Wellbutrin XL) 300 MG tablet XL Reorder cyanocobalamin 1000 MCG tablet Reorder Folic acid 1 MG tablet Reorder magnesium oxide 400 (240 Mg) MG Reorder Pantoprazole (Protonix) [address] tablet DR Reorder traZODone 100 MG tablet Reorder Current Outpatient Medications Medication Sig Dispense Refill buPROPion (Wellbutrin XL) 300 MG tablet XL Take 1 tablet by mouth every morning before breakfast. 90 tablet 0 cyanocobalamin 1000 MCG tablet Take 1 tablet by mouth daily. Chew 1 tab q daily 90 tablet 0 Folic acid 1 MG tablet Take 1 tablet by mouth daily. 90 tablet 0 magnesium oxide 400 (240 Mg) MG Take 1 tablet by mouth daily. 90 tablet 0 Pantoprazole (Protonix) [address] tablet DR Take 1 tablet by mouth 2 times daily (take before meals). 180 tablet 0 traZODone 100 MG tablet Take 1 tablet by mouth at bedtime. 90 tablet 0 Albuterol (Ventolin HFA) 108 (90 Base) MCG/ACT Aero Soln inhaler Inhale 2 puffs every 6 hours as needed for Wheezing. 18 g 0 Allopurinol 100 MG tablet Take 1 tablet by mouth daily. (Patient taking differently: Take 1 tablet by mouth daily. AM) 90 tablet 3 Aspirin (SB Low Dose ASA EC) [address] tablet Take 1 tablet by mouth daily with breakfast. OTC carveDILOL (Coreg) 12.5 MG tablet Take 1 tablet by mouth 2 times daily with meals. Given by Dr. Calderon 180 tablet 3 Cetirizine 10 MG tablet Take 1 tablet by mouth daily as needed for Allergies. OTC Clopidogrel 75 MG tablet Take 1 tablet by mouth daily. 90 tablet 3 Escitalopram (Lexapro) 10 MG tablet Take 1 tablet by mouth daily. 90 tablet 0 Evolocumab (Repatha SureClick) 140 MG/ML Solution Auto-injector injection Inject 1 mL under the skin every 14 days. (Patient taking differently: Inject 1 mL under the skin every 14 days. SATURDAYS) 2mL 11 fenofibrate 160 MG tablet Take 1 tablet by mouth daily. (Patient taking differently: Take 1 tablet by mouth daily. AM) 90 tablet 3 Lisinopril 5 MG tablet Take 1 tablet by mouth daily. (Patient taking differently: Take 1 tablet by mouth daily. AM) 90 tablet 3 triamterene-hydrochlorothiazide (Dyazide) 37.5-25 MG per capsule Take 1 capsule by mouth daily. Cancel previous refills (Patient taking differently: Take 1 capsule by mouth daily. Cancel previous refills AM) 90 capsule 3 No current facility-administered medications for this visit. Counseling given: No Follow up appointment(s) have been discussed with the patient. The patient is given an After Visit Summary sheet that lists all of their medications with directions, their allergies, orders placed during this encounter, immunization dates, and follow- up instructions. Fernie Paredes DO [address] [place] [id number] This note is electronically signed in the electronic medical record. documented in this [facility] [place]06-25-2024 Instructions* Patient Instructions* Fernie Paredes DO - 04/17/2024 1:00 PM EDT Do fasting, well hydrated labs on approx. 07-03-24 documented in this [facility] [place]06-25-2024 Miscellaneous Notes* Addendum Note - Fernie Paredes DO - 04/17/2024 1:00 PM EDTAddended by: FERNIE PAREDES on: 04/17/2024 01:58 PM Modules accepted: Level of Service [facility] Note* Addendum Note - Fernie Paredes DO - 04/17/2024 1:00 PM EDTAddended by: FERNIE PAREDES on: 04/17/2024 01:58 PM Modules accepted: Level of Service [facility]06-12-2024 History of Present illness Narrative* Alysia Lackey LPN - 04/04/2024 2:00 PM EDT Nurse Note: Review of Systems Constitutional: Positive for fatigue. Negative for diaphoresis and unexpected weight change. HENT: Positive for trouble swallowing. Negative for voice change. Eyes: Negative. Negative for pain. Respiratory: Negative. Negative for cough and shortness of breath. Cardiovascular: Negative. Negative for chest pain, palpitations and leg swelling. Gastrointestinal: Negative. Negative for constipation and diarrhea. Endocrine: Positive for cold intolerance. Negative for heat intolerance. Musculoskeletal: Negative for neck pain. Neurological: Negative. Negative for tremors. Psychiatric/Behavioral: Negative. Negative for sleep disturbance. The patient is not nervous/anxious. Nursing Assessment: Physical Exam * Aviva Mera CNP - 04/04/2024 2:00 PM EDT Subjective History of Present Illness Thyroid Problem Abnormal TSH level/Hyperthyroidism: Today is patient's second visit to the office for lab review and ultrasound results. She is here today with her . Patient states she is not diagnosed with athyroid issue as of yet. Family history includes her sister who had a goiter and a thyroidectomy. Most recent labs done demonstrate a TSH=2.31, Free T4=1.05, and Free T3=3.05, and negative thyroid antibodies. In December 2023 demonstrated a TSH=0.173, and her previous labs in July 2023 demonstrateda TSH=1.18. She is complaining of restlessness and dysphagia. She denies excessive fatigue, sleep issues, heart palpitations, and dyspnea. She does have sleep apnea and uses a mouthpiece at night. She had a history of atrial fibrillation with a stroke in her left eye that led to her having a watchman procedure done in 2022. She lost vision to her left eye from this stroke. She has seen an ENT andhas had her esophagus stretched twice without relief of the dysphagia. She does not take biotin or d rink celsius energy drinks. She is postmenopausal since chemo was done in 2011 for lymphoma. She isin remission. Thyroid ultrasound done on 03/20/2024 was normal. Objective Review of Systems Nurse Note: Review of Systems Constitutional: Negative for diaphoresis, fatigue and unexpected weight change. HENT: Positive for trouble swallowing. Negative for voice change. Eyes: Negative for pain. Respiratory: Negative for cough and shortness of breath. Cardiovascular: Negative for chest pain, palpitations and leg swelling. Gastrointestinal: Negative for constipation and diarrhea. Endocrine: Negative for cold intolerance and heat intolerance. Musculoskeletal: Negative for neck pain. Neurological: Negative for tremors. Psychiatric/Behavioral: Negative for sleep disturbance. The patient is not nervous/anxious. Vitals: Blood pressure 132/80, pulse 73, resp. rate 18, height 1.651 m (5' 5), weight 100.2 kg (220 lb 12.8 oz), SpO2 97%, not currently . Physical Exam Constitutional: General: Sarah is not in acute distress. Appearance: Normal appearance. HENT: Head: Normocephalic and atraumatic. Eyes: Conjunctiva/sclera: Conjunctivae normal. Neck: Vascular: No carotid bruit. Comments: Thyroid soft, no nodules felt. Discomfort with palpations, she felt like she was choking. Negative Catherine's test. Cardiovascular: Rate and Rhythm: Normal rate and regular rhythm. Pulses: Normal pulses. Heart sounds: Normal heart sounds. Pulmonary: Effort: Pulmonary effort is normal. Breath sounds: Normal breath sounds. Musculoskeletal: Cervical back: Normal range of motion and neck supple. Tenderness present. Skin: General: Skin is warm and dry. Neurological: General: No focal deficit present. Mental Status: Sarah is alert and oriented to person, place, and time. Psychiatric: Mood and Affect: Mood normal. Behavior: Behavior normal. Neurological Exam Mental Status Alert. Oriented to person, place, and time. Assessment and Plan Abnormal TSH/Hyperthyroidism: Discussed thyroid function test and ultrasound results with patient and her . All labs are within normal limits with negative thyroid antibodies. Thyroid ultrasound normal. Due to continued dysphagia I am recommending she call her ENT for further evaluation. Discussed that we could continue to monitor her thyroid function or she can return to her PCP. She is going to return to her PCP and we will see her back as needed. All questions answered today and she and her understand and agree to proceed. . documented in this [facility] Instructions* Patient Instructions* Ciro Lyles MD - 04/02/2024 10:50 AM EDT If you have any questions please contact our office at [phone]. After office hours or on the weekend, please call Dr. Lyles on his cell phone at [phone]. [facility] History of Present illness Narrative* Ciro Lyles MD - 04/02/2024 10:48 AM EDT ASSESSMENT/PLAN: 1. After cataract not obscuring vision, bilateral - ICD9: 366.52, ICD10: H26.493 (primary diagnosis) Stable/ monitor 2. Pseudophakia of both eyes - ICD9: V43.1, ICD10: Z96.1 Intraocular lens in good position Both eyes Monitor 3. Optic atrophy of left eye - ICD9: 377.10, ICD10: H47.20 Stable/monitor 4. Essential hypertension - ICD9: 401.9, ICD10: I10 5. Hypercholesteremia - ICD9: 272.0, ICD10: E78.00 Continue care with primary care physician I have confirmed and edited as necessary the relevant HPI, ophthalmic history, ROS, and the neuro exam findings as obtained by others. I have seen and examined Elena Galeano. I have discussed the case and the management of this patient's care with the Resident/Fellow, if applicable. I also have reviewed and agree with the assessment and plan as stated above and agree withall of its relevant components. documented in this [facility]05-[facility] History of Present illness Narrative* Brenda Dottie - 03/12/2024 2:00 PM EDT Nurse Note: Review of Systems Constitutional: Negative for diaphoresis, fatigue and unexpected weight change. HENT: Positive for trouble swallowing. Negative for voice change. Eyes: Negative for pain. Respiratory: Negative for cough and shortness of breath. Cardiovascular: Negative for chest pain, palpitations and leg swelling. Gastrointestinal: Negative for constipation and diarrhea. Endocrine: Negative for cold intolerance and heat intolerance. Musculoskeletal: Negative for neck pain. Neurological: Negative for tremors. Psychiatric/Behavioral: Negative for sleep disturbance. The patient is not nervous/anxious. Nursing Assessment: Physical Exam * Aviva Mera CNP - 03/12/2024 2:00 PM EDT Subjective History of Present Illness Abnormal TSH level/Hyperthyroidism: Today is patient's first visit to the office. She is here todaywith her . She was referred by Dr. Fernie Paredes for an abnormal TSH level on recent labs. Referral information reviewed prior to this appointment. Patient states she is not diagnosed with a thyroid issue as of yet. Family history includes her sister who had a goiter and a thyroidectomy. Mostrecent labs done in December 2023 demonstrated a TSH=0.173, and her previous labs in July 2023 demonstrated a TSH=1.18. She is complaining of restlessness and dysphagia. She denies excessive fatigue,sleep issues, heart palpitations, and dyspnea. She does have sleep apnea and uses a mouthpiece at night. She had a history of atrial fibrillation with a stroke in her left eye that led to her having a watchman procedure done in 2022. She lost vision to her left eye from this stroke. She has seen anENT and has had her esophagus stretched twice without relief of the dysphagia. She has never had a thyroid ultrasound done. She does not take biotin or drink celsius energy drinks. She is postmenopausal since chemo was done in 2011 for lymphoma. She is in remission. Objective Review of Systems Nurse Note: Review of Systems Constitutional: Negative for diaphoresis, fatigue and unexpected weight change. HENT: Positive for trouble swallowing. Negative for voice change. Eyes: Negative for pain. Respiratory: Negative for cough and shortness of breath. Cardiovascular: Negative for chest pain, palpitations and leg swelling. Gastrointestinal: Negative for constipation and diarrhea. Endocrine: Negative for cold intolerance and heat intolerance. Musculoskeletal: Negative for neck pain. Neurological: Negative for tremors. Psychiatric/Behavioral: Negative for sleep disturbance. The patient is not nervous/anxious. Vitals: Blood pressure 128/64, pulse 64, height 1.651 m (5' 5), weight 100 kg (220 lb 6.4 oz), SpO2 98%, not currently . Physical Exam Constitutional: General: Sarah is not in acute distress. Appearance: Normal appearance. HENT: Head: Normocephalic and atraumatic. Eyes: Conjunctiva/sclera: Conjunctivae normal. Neck: Vascular: No carotid bruit. Comments: Thyroid feels slightly enlarged but soft, no nodules felt. Discomfort with palpations, she felt like she was choking. Negative Catherine's test. Cardiovascular: Rate and Rhythm: Normal rate and regular rhythm. Pulses: Normal pulses. Heart sounds: Normal heart sounds. Pulmonary: Effort: Pulmonary effort is normal. Breath sounds: Normal breath sounds. Musculoskeletal: Cervical back: Normal range of motion and neck supple. Tenderness present. Skin: General: Skin is warm and dry. Neurological: General: No focal deficit present. Mental Status: Sarah is alert and oriented to person, place, and time. Psychiatric: Mood and Affect: Mood normal. Behavior: Behavior normal. Neurological Exam Mental Status Alert. Oriented to person, place, and time. Assessment and Plan Abnormal TSH/Hyperthyroidism: Discussed medical history and recent TSH levels. Discussed that sincethis was the first abnormal TSH that I need to repeat labs to include the TSH, Free T4, Free T3, and thyroid antibodies. Due to dysphagia I am going to order a thyroid ultrasound to be done for further evaluation of this. Discussed that once I see results of labs and ultrasound then we can discuss treatment options or further testing. Discussed methimazole's, if needed, mechanism of action and side effects with patient today. Discussed we will know more once tests are done. We will call her with lab results and will have her follow up after ultrasound is done. All questions answered today andalta and her understand and agree to proceed. We will continue to follow for hyperthyroidism/abnormal TSH. documented in this [facility]04-[facility]24 History of Present illness Narrative* Fernie M Reggie, DO - 01/23/2024 1:00 PM EDT Subjective History of Present Illness HISTORY OF PRESENT ILLNESS: 63 y.o. adult presents with complaints of: Encounter Diagnoses Name Primary? Type 2 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 disease, without long-term current use of insulin Yes Hyperlipidemia LDL goal <70 Anemia, unspecified type Stage 3a chronic kidney disease Hyperthyroidism Hypertriglyceridemia Hypomagnesemia Hypoproteinemia Idiopathic chronic gout without tophus, unspecified site Vitamin D deficiency Hepatomegaly Gastroesophageal reflux disease without esophagitis Folate deficiency Fatty liver B12 deficiency Chronic gastritis without bleeding, unspecified gastritis type Esophagitis, Clyo grade A Esophageal stenosis Duodenal diverticulum PVC's (premature ventricular contractions) Paroxysmal atrial fibrillation PAC (premature atrial contraction) Ischemic stroke Internal and external hemorrhoids without complication Hypertensive heart disease without heart failure Essential hypertension Cerebrovascular accident (CVA), unspecified mechanism Central retinal artery occlusion of left eye Bradycardia Bilateral carotid artery stenosis-30% Right, 60% Left Atherosclerosis of abdominal aorta Pulmonary emphysema, unspecified emphysema type PERCY on CPAP-Off BiPAP due to intolerance Non-seasonal allergic rhinitis, unspecified trigger Moderate persistent asthma without complication Hiatal hernia Chronic sinusitis, unspecified location Chronic obstructive pulmonary disease, unspecified COPD type Allergic conjunctivitis of both eyes Blepharitis of upper eyelids of both eyes, unspecified type Chronic midline low back pain without sciatica Combined forms of age-related cataract, bilateral Hypermetropia of left eye Lacunar infarction PCO (posterior capsular opacification), left Pinguecula of both eyes Regular astigmatism of left eye Unspecified amblyopia, right eye HNP (herniated nucleus pulposus), lumbar-Multi level Osteopenia determined by x-ray Other idiopathic scoliosis, lumbar region Primary osteoarthritis of both hips-Mild Primary osteoarthritis of both knees Spinal stenosis of lumbar region without neurogenic claudication Spondylosis of cervical region without myelopathy or radiculopathy Spondylosis of lumbar region without myelopathy or radiculopathy Left renal stone Mixed stress and urge incontinence Renal cyst, right Uterine leiomyoma, unspecified location Seborrheic keratosis, inflamed-Left thigh-S/P Excision CLL (chronic lymphocytic leukemia) Macrocytosis Anxiety and depression Elevated LFTs Chronic anticoagulation 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 Bilateral dry eyes ASCUS of cervix with negative high risk HPV Fatigue, unspecified type Fatty food intolerance Former smoker-Quit 2011 Insomnia, unspecified type Irregular astigmatism of right eye Low HDL (under 40) Myopia of right eye Obesity (BMI 30.0-34.9) Hyponatremia Presbyopia Pseudophakia of both eyes Vision loss of left eye S/P total knee arthroplasty, right S/P unilateral salpingo-oophorectomy History of anemia History of cataract extraction, unspecified laterality History of [id number] 09-30-2020 History of ETOH abuse Family history of Alzheimer's disease Type 2 DM, A. Fib, CKD-3a, Anemia and CLL. Recent Glucose 133, A1C 6.0, LDL 41, TG 230, CO2 33, GFR68 and TSH 0.173. All other labs WNL. Non Smoker, former. No Fam Hx DM. +Blurred vision. Weight up.Off Eliquis after got Watchman recently. No C.P., SOB, Edema, Palpitations, Dizziness, Fatigue, GERD, Melena, Hematochezia, Dysuria, or Frequency. All others negative on ROS. Objective Review of Systems Constitutional: Positive for unexpected weight change (weight up). Negative for fatigue. Eyes: Positive for visual disturbance. Respiratory: Negative for shortness of breath. Cardiovascular: Negative for chest pain, palpitations and leg swelling. Gastrointestinal: Negative for abdominal pain and blood in stool. No GERD Genitourinary: Negative for dysuria and frequency. Musculoskeletal: Negative for arthralgias. Neurological: Negative for dizziness, weakness and numbness. Psychiatric/Behavioral: Negative for dysphoric mood and sleep disturbance. The patient is not nervous/anxious. All other systems reviewed and are negative. Psych Review of Symptoms: Depressive Symptoms: No fatigue. Vitals: Blood pressure 136/61, pulse 65, temperature 97.4 F (36.3 C), temperature source Temporal, resp. rate 18, height 1.651 m (5' 5), weight 98.9 kg (218 lb), SpO2 97%, not currently . Physical Exam Vitals and nursing note reviewed. Constitutional: General: Sarah is not in acute distress. Appearance: Normal appearance. Sarah is obese. Sarah is not ill-appearing, toxic- appearing or diaphoretic. HENT: Head: Normocephalic and atraumatic. Right Ear: Tympanic membrane, ear canal and external ear normal. There is no impacted cerumen. Left Ear: Tympanic membrane, ear canal and external ear normal. There is no impacted cerumen. Nose: Nose normal. No congestion or rhinorrhea. Mouth/Throat: Mouth: Mucous membranes are moist. Pharynx: Oropharynx is clear. No oropharyngeal exudate or posterior oropharyngeal erythema. Eyes: General: No scleral icterus. Right eye: No discharge. Left eye: No discharge. Extraocular Movements: Extraocular movements intact. Conjunctiva/sclera: Conjunctivae normal. Pupils: Pupils are equal, round, and reactive to light. Neck: Thyroid: No thyromegaly. Vascular: No carotid bruit. Cardiovascular: Rate and Rhythm: Normal rate and regular rhythm. Pulses: Normal pulses. Heart sounds: Normal heart sounds. No murmur heard. No gallop. Pulmonary: Effort: Pulmonary effort is normal. Breath sounds: No wheezing or rhonchi. Chest: Chest wall: No tenderness. Abdominal: General: Abdomen is flat. Bowel sounds are normal. There is no distension. Palpations: Abdomen is soft. There is no mass. Tenderness: There is no abdominal tenderness. There is no right CVA tenderness, left CVA tenderness, guarding or rebound. Hernia: No hernia is present. Musculoskeletal: General: No swelling, tenderness, deformity or signs of injury. Normal range of motion. Cervical back: Normal range of motion and neck supple. No rigidity. No muscular tenderness. Right lower leg: No edema. Left lower leg: No edema. Lymphadenopathy: Cervical: No cervical adenopathy. Skin: Coloration: Skin is not jaundiced. Findings: No bruising, erythema or rash. Neurological: General: No focal deficit present. Mental Status: Sarah is alert and oriented to person, place, and time. Mental status is at baseline. Cranial Nerves: No cranial nerve deficit. Sensory: No sensory deficit. Motor: No weakness. Coordination: Coordination normal. Gait: Gait normal. Deep Tendon Reflexes: Reflexes normal. Psychiatric: Mood and Affect: Mood normal. Behavior: Behavior normal. Thought Content: Thought content normal. Judgment: Judgment normal. Comments: Discussed the importance of sharing/withholding information with the patient. The patientdenies suicide or homicide intent, and is competent. Neurological Exam Mental Status Alert. Oriented to person, place, and time. Cranial Nerves CN III, IV, : Extraocular movements intact bilaterally. Pupils equal round and reactive to light bilaterally. Gait Normal gait. Assessment and Plan Refills given all meds requested. COVID-19, Shingrix and Arexvy vaccines declined. Risks discussed.We will call Dr. Philip at [facility] for 01-14-24 notes. Awaiting results of today's 3-D Mammogram. Alaina 02-15-[address] Sigala and review x rays done today with him. Alaina 03-01-[address] Calderon. Eval hyper thyroidism on 04-03-24 with Aviva Mera NP. Alaina 04-11-24, sooner prn. [place]aina 05-22-24 with Aguialr Alexandra NP at [facility] for Watchman alaina and possibly DC Plavix then with her. Alaina alllabs, UA, Vit D, A1C, Mg, PTH, Fe, B12, Folate, UA CR and UA for Micro-albumin in . Alaina 08-06-24 Dr. Ciro Lyles. Alaina 09-19-[address] Naty Bhakta at [facility] and ask her about getting Shingrix. Alaina 10-31-[address] Davison. Alaina 01-02-[address] Philip at [facility]. [place]a 3-D Mammogram in . [place] PAP in with 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 NP. [place] DEXA in . [place] Colon in .Total time spent 36 minutes, excluding tests and procedures. Diet and lifestyle counseling was given, and car e coordinated. OARRS report was received and assessed, and is consistent with the medications prescribed. Thank you for choosing Dr[facility] Fernie Paredes s [facility]. The patients' entire past medical, surgical, family, social history, allergies, medications, recent labs, recent imaging and [employer] commerce consultant letters were reviewed and updated. ASSESSMENT & PLAN: Encounter Diagnoses Name Primary? Type 2 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 disease, without long-term current use of insulin Yes Hyperlipidemia LDL goal <70 Anemia, unspecified type Stage 3a chronic kidney disease Hyperthyroidism Hypertriglyceridemia Hypomagnesemia Hypoproteinemia Idiopathic chronic gout without tophus, unspecified site Vitamin D deficiency Hepatomegaly Gastroesophageal reflux disease without esophagitis Folate deficiency Fatty liver B12 deficiency Chronic gastritis without bleeding, unspecified gastritis type Esophagitis, Clyo grade A Esophageal stenosis Duodenal diverticulum PVC's (premature ventricular contractions) Paroxysmal atrial fibrillation PAC (premature atrial contraction) Ischemic stroke Internal and external hemorrhoids without complication Hypertensive heart disease without heart failure Essential hypertension Cerebrovascular accident (CVA), unspecified mechanism Central retinal artery occlusion of left eye Bradycardia Bilateral carotid artery stenosis-30% Right, 60% Left Atherosclerosis of abdominal aorta Pulmonary emphysema, unspecified emphysema type PERCY on CPAP-Off BiPAP due to intolerance Non-seasonal allergic rhinitis, unspecified trigger Moderate persistent asthma without complication Hiatal hernia Chronic sinusitis, unspecified location Chronic obstructive pulmonary disease, unspecified COPD type Allergic conjunctivitis of both eyes Blepharitis of upper eyelids of both eyes, unspecified type Chronic midline low back pain without sciatica Combined forms of age-related cataract, bilateral Hypermetropia of left eye Lacunar infarction PCO (posterior capsular opacification), left Pinguecula of both eyes Regular astigmatism of left eye Unspecified amblyopia, right eye HNP (herniated nucleus pulposus), lumbar-Multi level Osteopenia determined by x-ray Other idiopathic scoliosis, lumbar region Primary osteoarthritis of both hips-Mild Primary osteoarthritis of both knees Spinal stenosis of lumbar region without neurogenic claudication Spondylosis of cervical region without myelopathy or radiculopathy Spondylosis of lumbar region without myelopathy or radiculopathy Left renal stone Mixed stress and urge incontinence Renal cyst, right Uterine leiomyoma, unspecified location Seborrheic keratosis, inflamed-Left thigh-S/P Excision CLL (chronic lymphocytic leukemia) Macrocytosis Anxiety and depression Elevated LFTs Chronic anticoagulation 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 Bilateral dry eyes ASCUS of cervix with negative high risk HPV Fatigue, unspecified type Fatty food intolerance Former smoker-Quit 2011 Insomnia, unspecified type Irregular astigmatism of right eye Low HDL (under 40) Myopia of right eye Obesity (BMI 30.0-34.9) Hyponatremia Presbyopia Pseudophakia of both eyes Vision loss of left eye S/P total knee arthroplasty, right S/P unilateral salpingo-oophorectomy History of anemia History of cataract extraction, unspecified laterality History of [id number] 09-30-2020 History of ETOH abuse Family history of Alzheimer's disease No orders of the defined types were placed in this encounter. Medications Discontinued During This Encounter Medication Reason apixaban 5 MG tablet buPROPion (Wellbutrin XL) 300 MG tablet XL Reorder cyanocobalamin 1000 MCG tablet Reorder Folic acid 1 MG tablet Reorder Pantoprazole (Protonix) [address] tablet DR Reorder traZODone 100 MG tablet Reorder magnesium oxide 400 (240 Mg) MG Reorder Current Outpatient Medications Medication Sig Dispense Refill Allopurinol 100 MG tablet Take 1 tablet by mouth daily. 90 tablet 3 buPROPion (Wellbutrin XL) 300 MG tablet XL Take 1 tablet by mouth every morning before breakfast. 90 tablet 0 cyanocobalamin 1000 MCG tablet Take 1 tablet by mouth daily. Chew 1 tab q daily 90 tablet 0 Folic acid 1 MG tablet Take 1 tablet by mouth daily. 90 tablet 0 magnesium oxide 400 (240 Mg) MG Take 1 tablet by mouth daily. 90 tablet 0 Pantoprazole (Protonix) [address] tablet DR Take 1 tablet by mouth 2 times daily (take before meals). 180 tablet 0 traZODone 100 MG tablet Take 1 tablet by mouth at bedtime. 90 tablet 0 Albuterol (Ventolin HFA) 108 (90 Base) MCG/ACT Aero Soln inhaler Inhale 2 puffs every 6 hours as needed for Wheezing. 18 g 0 carveDILOL (Coreg) 12.5 MG tablet Take 1 tablet by mouth 2 times daily with meals. Given by Dr. Calderon 180 tablet 3 Cetirizine 10 MG tablet Take 1 tablet by mouth daily as needed for Allergies. OTC Clindamycin Phos-Benzoyl Perox 1.2-3.75 % Gel Apply 1 Application topically daily as needed. Given by Dermatology Dr. Dejesus Clopidogrel 75 MG tablet Take 1 tablet by mouth daily. 90 tablet 3 Evolocumab (Repatha SureClick) 140 MG/ML Solution Auto-injector injection Inject 1 mL under the skin every 14 days. 2 mL 11 fenofibrate 160 MG tablet Take 1 tablet by mouth daily. 90 tablet 3 Lisinopril 5 MG tablet Take 1 tablet by mouth daily. 90 tablet 3 triamterene-hydrochlorothiazide (Dyazide) 37.5-25 MG per capsule Take 1 capsule by mouth daily. Cancel previous refills 90 capsule 3 No current facility-administered medications for this visit. Counseling given: No Follow up appointment(s) have been discussed with the patient. The patient is given an After Visit Summary sheet that lists all of their medications with directions, their allergies, orders placed during this encounter, immunization dates, and follow- up instructions. Fernie Paredes DO [address] [id number] This note is electronically signed in the electronic medical record. [facility]* Diagnosis Type 2 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 disease, without long-term current use of insulin- Primary Hyperlipidemia LDL goal <70 Other and unspecified hyperlipidemia Anemia, unspecified type Stage 3a chronic kidney disease Hyperthyroidism Thyrotoxicosis without mention of goiter or other cause, without mention of thyrotoxic crisis or storm Hypertriglyceridemia Pure hyperglyceridemia Hypomagnesemia Disorders of magnesium metabolism Hypoproteinemia Other disorders of plasma protein metabolism Idiopathic chronic gout without tophus, unspecified site Vitamin D deficiency Unspecified vitamin D deficiency Hepatomegaly Gastroesophageal reflux disease without esophagitis Esophageal reflux Folate deficiency Other B-complex deficiencies Fatty liver Other chronic nonalcoholic liver disease B12 deficiency Other B-complex deficiencies Chronic gastritis without bleeding, unspecified gastritis type Esophagitis, Clyo grade A Esophageal stenosis Stricture and stenosis of esophagus Duodenal diverticulum Diverticulosis of small intestine (without mention of hemorrhage) PVC's (premature ventricular contractions) Other premature beats Paroxysmal atrial fibrillation Atrial fibrillation PAC (premature atrial contraction) Supraventricular premature beats Ischemic stroke Internal and external hemorrhoids without complication Internal hemorrhoids without mention of complication Hypertensive heart disease without heart failure Unspecified hypertensive heart disease without heart failure Essential hypertension Unspecified essential hypertension Cerebrovascular accident (CVA), unspecified mechanism Central retinal artery occlusion of left eye Central artery occlusion of retina Bradycardia Other specified cardiac dysrhythmias Bilateral carotid artery stenosis-30% Right, 60% Left Occlusion and stenosis of multiple and bilateral precerebral arteries without mention of cerebral infarction Atherosclerosis of abdominal aorta Atherosclerosis of aorta Pulmonary emphysema, unspecified emphysema type PERCY on CPAP-Off BiPAP due to intolerance Obstructive sleep apnea (adult) (pediatric) Non-seasonal allergic rhinitis, unspecified trigger Moderate persistent asthma without complication Unspecified asthma Hiatal hernia Diaphragmatic hernia without mention of obstruction or gangrene Chronic sinusitis, unspecified location Chronic obstructive pulmonary disease, unspecified COPD type Allergic conjunctivitis of both eyes Other chronic allergic conjunctivitis Blepharitis of upper eyelids of both eyes, unspecified type Chronic midline low back pain without sciatica Combined forms of age-related cataract, bilateral Hypermetropia of left eye Hypermetropia Lacunar infarction Unspecified cerebral artery occlusion with cerebral infarction PCO (posterior capsular opacification), left After-cataract, unspecified Pinguecula of both eyes Pinguecula Regular astigmatism of left eye Regular astigmatism Unspecified amblyopia, right eye HNP (herniated nucleus pulposus), lumbar-Multi level Displacement of lumbar intervertebral disc without myelopathy Osteopenia determined by x-ray Other idiopathic scoliosis, lumbar region Primary osteoarthritis of both hips-Mild Primary localized osteoarthrosis, pelvic region and thigh Primary osteoarthritis of both knees Primary localized osteoarthrosis, lower leg Spinal stenosis of lumbar region without neurogenic claudication Spinal stenosis, lumbar region, without neurogenic claudication Spondylosis of cervical region without myelopathy or radiculopathy Cervical spondylosis without myelopathy Spondylosis of lumbar region without myelopathy or radiculopathy Lumbosacral spondylosis without myelopathy Left renal stone Mixed stress and urge incontinence Renal cyst, right Unspecified congenital cystic kidney disease Uterine leiomyoma, unspecified location Seborrheic keratosis, inflamed-Left thigh-S/P Excision Inflamed seborrheic keratosis CLL (chronic lymphocytic leukemia) Chronic lymphoid leukemia, without mention of having achieved remission Macrocytosis Other specified diseases of blood and blood-forming organs Anxiety and depression Dysthymic disorder Elevated LFTs Other abnormal blood chemistry Chronic anticoagulation Encounter for long-term (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 of anticoagulants 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 Profound impairment, one eye, Impairment level not further specified Bilateral dry eyes Tear film insufficiency, unspecified ASCUS of cervix with negative high risk HPV Fatigue, unspecified type Fatty food intolerance Other specified intestinal malabsorption Former smoker-Quit 2011 Personal history of tobacco use, presenting hazards to health Insomnia, unspecified type Irregular astigmatism of right eye Irregular astigmatism Low HDL (under 40) Lipoprotein deficiencies Myopia of right eye Myopia Obesity (BMI 30.0-34.9) Obesity, unspecified Hyponatremia Hyposmolality and/or hyponatremia Presbyopia Pseudophakia of both eyes Lens replaced by other means Vision loss of left eye Unqualified visual loss, one eye S/P total knee arthroplasty, right S/P unilateral salpingo-oophorectomy Acquired absence of organ, genital organs History of anemia Personal history of diseases of blood and blood-forming organs History of cataract extraction, unspecified laterality History of [id number] 09-30-2020 History of ETOH abuse Nondependent alcohol abuse, in remission Family history of Alzheimer's disease Family history of other condition Other optic atrophy, left eye Posterior capsular opacification non visually significant, both eyes-L>R Other after-cataract, not obscuring vision documented in this encounter [facility]03[facility] History of Present illness Narrative* Handy Benítez, [facility] - 01/10/2024 12:30 PM EDT Referred by: Dr. Sigala Chief Complaint Patient presents with Lower Back - Follow-up, Joint Injection Patient reports the lower back still has increased pain. Pain today at rest 12/03, activity 10/02. Mainly on the R side, will move over to the L side if she does not rest in time. Patient reports painis a constant pain that gets worse over time. Patient is wanting another injection. Lower Back Location: R SI, can move to L Quality: constant Duration: years NSAIDs? Ibuprofen Analgesics? Tylenol Other pain modalities? no Physical therapy? After L side fusion Xrays? 06/07/23 - Lumbar Spine MRI? 06/20/23 - Lumbar Spine Patient activity (i.e. Job, sport, etc.): Retired, active at home Treatment performed or prescribed at last visit? R USG injection 09/26/23 Response to treatment since last visit? Patient reports it lasted about 1 to 1.5 months. Current Outpatient Medications: Allopurinol 100 MG tablet, Take 1 tablet by mouth daily., Disp: 90 tablet, Rfl: 3 Albuterol (Ventolin HFA) 108 (90 Base) MCG/ACT Aero Soln inhaler, Inhale 2 puffs every 6 hours as needed for Wheezing., Disp: 18 g, Rfl: 0 apixaban 5 MG tablet, Take 1 tablet by mouth every 12 hours., Disp: 180 tablet, Rfl: 3 buPROPion (Wellbutrin XL) 300 MG tablet XL, Take 1 tablet by mouth every morning before breakfast.,Disp: 90 tablet, Rfl: 0 carveDILOL (Coreg) 12.5 MG tablet, Take 1 tablet by mouth 2 times daily with meals. Given by Dr. Calderon, Disp: 180 tablet, Rfl: 3 Cetirizine 10 MG tablet, Take 1 tablet by mouth daily as needed for Allergies. OTC, Disp: , Rfl: Clindamycin Phos-Benzoyl Perox 1.2-3.75 % Gel, Apply 1 Application topically daily as needed. Givenby Dermatology Dr. Dejesus, Disp: , Rfl: Clopidogrel 75 MG tablet, Take 1 tablet by mouth daily., Disp: 90 tablet, Rfl: 3 cyanocobalamin 1000 MCG tablet, Take 1 tablet by mouth daily. Chew 1 tab q daily, Disp: 90 tablet, Rfl: 0 Evolocumab (Repatha SureClick) 140 MG/ML Solution Auto-injector injection, Inject 1 mL under the skin every 14 days., Disp: 2 mL, Rfl: 11 fenofibrate 160 MG tablet, Take 1 tablet by mouth daily., Disp: 90 tablet, Rfl: 3 Folic acid 1 MG tablet, Take 1 tablet by mouth daily., Disp: 90 tablet, Rfl: 0 Lisinopril 5 MG tablet, Take 1 tablet by mouth daily., Disp: 90 tablet, Rfl: 3 magnesium oxide 400 (240 Mg) MG, Take 1 tablet by mouth daily., Disp: 90 tablet, Rfl: 0 Pantoprazole (Protonix) [address] tablet DR, Take 1 tablet by mouth 2 times daily (take before meals)., Disp: 180 tablet, Rfl: 0 traZODone 100 MG tablet, Take 1 tablet by mouth at bedtime., Disp: 90 tablet, Rfl: 0 triamterene-hydrochlorothiazide (Dyazide) 37.5-25 MG per capsule, Take 1 capsule by mouth daily. Cancel previous refills, Disp: 90 capsule, Rfl: 3 Family History Problem Relation Age of Onset Hypertension Mother Lipid Disorder Mother Depression Mother Clotting Disorder Mother hx of DVT Dementia Father Arrhythmia Father A-Fib Anesth Problems Sister post-op n/v Breast Cancer Maternal Aunt Cancer- Other Maternal Uncle melanoma Ovarian Cancer Paternal Aunt Cancer Paternal Aunt brain Lung Cancer Maternal Grandfather Hypertension Son Lipid Disorder Daughter No known problems Daughter Autism Grandson Social History Tobacco Use Smoking status: Former Current packs/day: 0.00 Average packs/day: 0.8 packs/day for 35.0 years (26.3 ttl pk-yrs) Types: Cigarettes Start date: 04/23/1978 Quit date: 04/23/2013 Years since quittin.7 Smokeless tobacco: Never Vaping Use Vaping status: Never Used Substance Use Topics Alcohol use: Yes Alcohol/week: 2.0 standard drinks of alcohol Types: 2 Cans of beer per week Comment: Hx ETOH abuse Drug use: Never Past Surgical History: Procedure Laterality Date I&D BURSA FOOT Left 07/08/2023 Laterality: Left; Surgeon: Dawn Uriarte DPM; Location: [facility] OR INJECTION NERVE OTHER PERIPHERAL Left 12/16/2022 Laterality: Left; Surgeon: Isreal Sigala MD; Location: [facility] OR GUIDANCE FLUOROSCOPIC NEEDLE OR CATHETER PLACEMENT FOR SPINE INJECTION ADD-ON PX Left 12/16/2022 Laterality: Left; Surgeon: Isreal Sigala MD; Location: [facility] OR SUSPENSION URETHRA/URETHROVESICAL FEMALE OPEN W/ SYNTHETIC MATERIAL (SLING) Midline 08/31/2022 Laterality: Midline; Surgeon: Dariusz Rangel MD; Location: [facility] OR CYSTOURETHROSCOPY W/ DILATION BLADDER Midline 08/31/2022 Laterality: Midline; Surgeon: Dariusz Rangel MD; Location: [facility] OR COLPORRHAPHY ANTEROPOSTERIOR REPAIR CYSTOCELE & RECTOCELE Midline 08/31/2022 Laterality: Midline; Surgeon: Dariusz Rangel MD; Location: [facility] OR ARTHRODESIS SACROILIAC JOINT MINIMALLY INVASIVE W/ TRANSFIXING DEVICE Left 06/17/2022 Laterality: Left; Surgeon: Isreal Sigala MD; Location: [facility] OR GUIDANCE FLUOROSCOPIC NEEDLE OR CATHETER PLACEMENT FOR SPINE INJECTION ADD-ON PX Left 06/17/2022 Laterality: Left; Surgeon: Isreal Sigala MD; Location: [facility] OR EGD W/ DILATION BALLOON N/A 12/01/2021 Laterality: N/A; Surgeon: Indra Parrish DO; Location: [facility] ENDOSCOPY SHOULDER ARTHROSCOPY Left 06/18/2021 REMOVAL CENTRAL VENOUS ACCESS DEVICE TUNNELED W/ PORT PUMP Left 09/13/2019 Laterality: Left; Surgeon: Eduardo Muñoz MD; Location: [facility] INTERVENTIONAL RADIOLOGY (VIR) EGD W/ DILATION BALLOON N/A 06/30/2018 Laterality: N/A; Surgeon: Indra Parrish DO; Location: [facility] ENDOSCOPY EGD DIAGNOSTIC N/A 04/07/2018 Laterality: N/A; Surgeon: Wilner Leigh MD; Location: [facility] ENDOSCOPY COLONOSCOPY DIAGNOSTIC N/A 04/07/2018 Laterality: N/A; Surgeon: Wilner Leigh MD; Location: [facility] ENDOSCOPY KNEE REPLACEMENT Right 05/2015 done at [place]--CC ARTHROPLASTY KNEE TOTAL Right 04/2015 INSERTION PICC W/ PORT PUMP 2014 power port COLONOSCOPY DIAGNOSTIC 2006 SALPINGO-OOPHORECTOMY OPEN N/A 1983 APPENDECTOMY OPEN 1983 TONSILLECTOMY ADENOIDECTOMY 1967 EGD DIAGNOSTIC 10 months ago There were no vitals filed for this visit. Constitutional No fevers, chills or sweats, unintentional weight gain or weight loss, night pain, or night sweats except as per HPI. Cardiovascular No recent chest pain or palpitations. No claudication. No new or worsening lower extremity edema except as per HPI. Respiratory No new or worsening shortness of breath, dyspnea on exertion, orthopnea or paroxysmal nocturnal dyspnea except as per HPI. Gastrointestinal No recent heartburn or stomach upset, no history of ulcers except as per HPI. Musculoskeletal No joint pain, stiffness, or weakness except as per HPI. Endocrine No polyphagia, polydypsia, or polyuria. Hematologic No known or recent anemia, no excessive bleeding. Rheumatologic No history or currently active autoimmune or rheumatologic disease except as per HPI. Integumentary No new or relevant rashes or lesions except as per HPI. Neurologic No numbness, tingling, or weakness into her distal extremities except as per HPI. Constitutional Normal No acute distress. Well nourished. Well developed. Head/Face Normal Facial features - Normal. Eyebrows - Normal. Skull - Normal. Hair and scalp - Normal. Eyes Normal General - Right: Normal, Left: Normal. Lids/external - Right: Normal, Left: Normal. Conjunctiva - Right: Normal, Left: Normal. Ears Normal Inspection - Right: Normal, Left: Normal. Pinna - Right: Normal, Left: Normal. Nasopharynx Normal External nose - Normal. Nares - Right: Normal. Nasal Mucosa - Normal. Lips/teeth/gums - Normal. Buccal mucosa - Normal. Neck Exam Normal Inspection - Normal. Range of motion - Normal. Neck Exam Comments Supple. Respiratory Normal Inspection - Normal. Cough - Absent. Effort - Normal. Cardiovascular Normal Heart rate - Regular rate. Vascular Normal Pulses - Radial: Normal, Brachial: Normal, Dorsalis pedis: Normal, Posterior tibial: Normal. Capillary refill - Less than 2 seconds. Skin * Rash - Description: none. Extremity Normal No Edema. No Calf tenderness. Diabetic Foot Screen Normal Pulses - Dorsalis pedis: Normal, Posterior tibial: Normal. Neurological Normal Level of consciousness - Normal. Orientation - Normal. Memory - Normal. Psychiatric Normal No agitation. Appropriate mood and affect. Appropriate affect. Normal insight. Normal judgment. * Chelsea Juan A - 01/10/2024 12:30 PM EDTAssociated Order(s): LARGE JOINT/BURSA INJECTION AND/OR ASPIRATION Post-Procedure Diagnose(s): Osteoarthritis of right sacroiliac joint; Pain of right sacroiliac joint; Sacroiliitis Interval exam: Lumbar spine Inspection: No erythema, ecchymosis, swelling or deformity. No open wounds. NVID Lumbar xray reviewed from 06/07/[address] Stephens 09/26/23 History obtained from patient. ASSESSMENT and PLAN: 1. Osteoarthritis of right sacroiliac joint - US IMAGING FOR ORTHO 2. Pain of right sacroiliac joint - US IMAGING FOR ORTHO 3. Lumbar spondylosis 4. Spondylolisthesis of lumbar region 5. Sacroiliitis Sarah did well with previous injection and so we elected to proceed with injection again today to the right SI with corticosteroid. We reviewed options once again including surgery, but we are not ready to proceed surgically. We will see her back in 3 months to re-evaluate and consider treatment options including repeat injection. Referrals: None Medications prescribed today: None Follow up plan: 3 month Possible US Guided right SI joint injection Severity of problem(s): Mild Risk of morbidity from the condition and/or testing or treatment: Low Medical Decision Making At today's visit I reviewed the history, physical examination, and previous pertinent imaging. We weighed the options of whether or not to proceed with an injection today based off of these findings and discussed alternatives. After this discussion, I felt that the injection was indicated and we elected to proceed. This evaluation and management service was a separate and identifiable service apart from the injection. LARGE JOINT/BURSA INJECTION AND/OR ASPIRATION Date/Time: 01/10/2024 12:30 PM Performed by: Garry Stephens MD Authorized by: Garry Stephens MD Supporting Documentation Indications: pain and osteoarthritis Procedure Details: Location: sacroiliac - R sacroiliac joint Local Anesthetic: bupivacaine 0.5% and lidocaine 1% Total Local Anesthetic: 4 mLs Guidance: ultrasound Ultrasound probe size: 4 mHz curvilinear Images were saved electronically. Needle size: 22 G Needle Length: 4.0 inch Approach: posterior Medication Verification: I have personally verified and performed the final check of the medication(s) used in this procedure prior to administration. The following items were included during the verification process for medication(s) administered: drug name, strength, volume, expiration, physical integrity and appearance of the medication(s). Medications administered: 1 mL BUPivacaine 0.5 %; 2 mL triamcinolone 40 MG/ML; 4 mL Lidocaine 10 mg/mL; 5 mL Sodium chloride (PF) 0.9 %; 4 mg dexAMETHasone 4 MG/ML Patient tolerance: patient tolerated the procedure well with no immediate complications Comments Medical Decision Making At today's visit I reviewed the history, physical examination, and previous pertinent imaging. We weighed the options of whether or not to proceed with an injection today based off of these findings and discussed alternatives. After this discussion, I felt that the injection was indicated and we elected to proceed. This evaluation and management service was a separate and identifiable service apart from the injection. Pre-Procedure Details The attending physician was present for the entire procedure. Consent: Consent was obtained prior to the procedure after discussion of the risks, benefits and alternatives, and expected outcomes were discussed with the patient. The possibilities of reaction to medication, bleeding, infection, the need for additional procedures, failure to diagnosis a condition, and creating a complication requiring operation were discussed with the patient. The patient concurred with the proposed plan, giving consent. Preparation: Patient was prepped in the usual sterile fashion. The patient was prepped with Chloraprep. Patient counseled on expected outcome and continued treatment and healing process. Patient tolerated the procedure well and was discharged in good condition with post-procedure instructions and anticipatory guidance regarding possible adverse reactions after the procedure including but not limited to infection, injection site flare reaction, allergic reaction. If corticosteroids were used then specifically the patient may develop hyperglycemia, facial flushing, heart palpitations amongst many other side effects associated with corticosteroids. Patient reports 100% relief while anaesthetized on the right side. The patient has a multi year history of pain involving right sacroiliac joint. The diagnosis of pain emanating from the sacroiliac joint has been arrived at with diligent investigation. In the courseour recent treatment as well as prior treatment, alternative pain generators and diagnoses have been excluded. This has been accomplished clinically and diagnostically by incorporating information from history, physical exam, imaging and diagnostic guided injection. The patient meets both ISASS and PASTOR guidelines for minimally invasive SI joint fusion: We have found: Over 6 months of intensive conservative treatment has failed including physical therapy, medications, SI belt, therapeutic injections. 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 100% relief while anesthetized during guided injection to the right sacroiliac joint on 09/26/2024. 100% relief while anesthetized during guided injection to the right sacroiliac joint on 01/10/2024. The patient has an absence of generalized pain or disorders. Positive Bonilla's sign. Positive tenderness to the sacral sulcus on the right side. Positive physical exam for 3 or more provocative maneuvers including thigh thrust, MAXWELL, distraction test. Diagnostic imaging reveals degenerative changes involving the sacroiliac joint and no evidence for inflammatory arthropathy is noted. All other diagnoses that could account for the patient's pain have been ruled out. Unfortunately, we have not accomplished long-term pain relief with conservative measures for 6 months or more. We have exhausted conservative measures including activity modification, physical therapy and injection treatments. The patient is expected to continue with pain and disability. The best next step is fusion of the sacroiliac joint, in my opinion. We will now refer to Dr. Sigala for surgical opinion and recommendations. * Garry Stehpens MD - 01/10/2024 12:30 PM EDT Referred by: Dr. Sigala Chief Complaint Patient presents with Lower Back - Follow-up, Joint Injection Patient reports the lower back still has increased pain. Pain today at rest 12/03, activity 10/02. Mainly on the R side, will move over to the L side if she does not rest in time. Patient reports painis a constant pain that gets worse over time. Patient is wanting another injection. Lower Back Location: R SI, can move to L Quality: constant Duration: years NSAIDs? Ibuprofen Analgesics? Tylenol Other pain modalities? no Physical therapy? After L side fusion Xrays? 06/07/23 - Lumbar Spine MRI? 06/20/23 - Lumbar Spine Patient activity (i.e. Job, sport, etc.): Retired, active at home Treatment performed or prescribed at last visit? R USG injection 09/26/23 Response to treatment since last visit? Patient reports it lasted about 1 to 1.5 months. Current Outpatient Medications: Allopurinol 100 MG tablet, Take 1 tablet by mouth daily., Disp: 90 tablet, Rfl: 3 Albuterol (Ventolin HFA) 108 (90 Base) MCG/ACT Aero Soln inhaler, Inhale 2 puffs every 6 hours as needed for Wheezing., Disp: 18 g, Rfl: 0 apixaban 5 MG tablet, Take 1 tablet by mouth every 12 hours., Disp: 180 tablet, Rfl: 3 buPROPion (Wellbutrin XL) 300 MG tablet XL, Take 1 tablet by mouth every morning before breakfast.,Disp: 90 tablet, Rfl: 0 carveDILOL (Coreg) 12.5 MG tablet, Take 1 tablet by mouth 2 times daily with meals. Given by Dr. Calderon, Disp: 180 tablet, Rfl: 3 Cetirizine 10 MG tablet, Take 1 tablet by mouth daily as needed for Allergies. OTC, Disp: , Rfl: Clindamycin Phos-Benzoyl Perox 1.2-3.75 % Gel, Apply 1 Application topically daily as needed. Givenby Dermatology Dr. Dejesus, Disp: , Rfl: Clopidogrel 75 MG tablet, Take 1 tablet by mouth daily., Disp: 90 tablet, Rfl: 3 cyanocobalamin 1000 MCG tablet, Take 1 tablet by mouth daily. Chew 1 tab q daily, Disp: 90 tablet, Rfl: 0 Evolocumab (Repatha SureClick) 140 MG/ML Solution Auto-injector injection, Inject 1 mL under the skin every 14 days., Disp: 2 mL, Rfl: 11 fenofibrate 160 MG tablet, Take 1 tablet by mouth daily., Disp: 90 tablet, Rfl: 3 Folic acid 1 MG tablet, Take 1 tablet by mouth daily., Disp: 90 tablet, Rfl: 0 Lisinopril 5 MG tablet, Take 1 tablet by mouth daily., Disp: 90 tablet, Rfl: 3 magnesium oxide 400 (240 Mg) MG, Take 1 tablet by mouth daily., Disp: 90 tablet, Rfl: 0 Pantoprazole (Protonix) [address] tablet DR, Take 1 tablet by mouth 2 times daily (take before meals)., Disp: 180 tablet, Rfl: 0 traZODone 100 MG tablet, Take 1 tablet by mouth at bedtime., Disp: 90 tablet, Rfl: 0 triamterene-hydrochlorothiazide (Dyazide) 37.5-25 MG per capsule, Take 1 capsule by mouth daily. Cancel previous refills, Disp: 90 capsule, Rfl: 3 Family History Problem Relation Age of Onset Hypertension Mother Lipid Disorder Mother Depression Mother Clotting Disorder Mother hx of DVT Dementia Father Arrhythmia Father A-Fib Anesth Problems Sister post-op n/v Breast Cancer Maternal Aunt Cancer- Other Maternal Uncle melanoma Ovarian Cancer Paternal Aunt Cancer Paternal Aunt brain Lung Cancer Maternal Grandfather Hypertension Son Lipid Disorder Daughter No known problems Daughter Autism Grandson Social History Tobacco Use Smoking status: Former Current packs/day: 0.00 Average packs/day: 0.8 packs/day for 35.0 years (26.3 ttl pk-yrs) Types: Cigarettes Start date: 04/23/1978 Quit date: 04/23/2013 Years since quittin.7 Smokeless tobacco: Never Vaping Use Vaping status: Never Used Substance Use Topics Alcohol use: Yes Alcohol/week: 2.0 standard drinks of alcohol Types: 2 Cans of beer per week Comment: Hx ETOH abuse Drug use: Never Past Surgical History: Procedure Laterality Date I&D BURSA FOOT Left 07/08/2023 Laterality: Left; Surgeon: Dawn Uriarte DPM; Location: [facility] OR INJECTION NERVE OTHER PERIPHERAL Left 12/16/2022 Laterality: Left; Surgeon: Isreal Sigala MD; Location: [facility] OR GUIDANCE FLUOROSCOPIC NEEDLE OR CATHETER PLACEMENT FOR SPINE INJECTION ADD-ON PX Left 12/16/2022 Laterality: Left; Surgeon: Isreal Sigala MD; Location: [facility] OR SUSPENSION URETHRA/URETHROVESICAL FEMALE OPEN W/ SYNTHETIC MATERIAL (SLING) Midline 08/31/2022 Laterality: Midline; Surgeon: Dariusz Rangel MD; Location: [facility] OR CYSTOURETHROSCOPY W/ DILATION BLADDER Midline 08/31/2022 Laterality: Midline; Surgeon: Dariusz Rangel MD; Location: [facility] OR COLPORRHAPHY ANTEROPOSTERIOR REPAIR CYSTOCELE & RECTOCELE Midline 08/31/2022 Laterality: Midline; Surgeon: Dariusz Rangel MD; Location: [facility] OR ARTHRODESIS SACROILIAC JOINT MINIMALLY INVASIVE W/ TRANSFIXING DEVICE Left 06/17/2022 Laterality: Left; Surgeon: Isreal Sigala MD; Location: [facility] OR GUIDANCE FLUOROSCOPIC NEEDLE OR CATHETER PLACEMENT FOR SPINE INJECTION ADD-ON PX Left 06/17/2022 Laterality: Left; Surgeon: Isreal Sigala MD; Location: [facility] OR EGD W/ DILATION BALLOON N/A 12/01/2021 Laterality: N/A; Surgeon: Indra Parrish DO; Location: [facility] ENDOSCOPY SHOULDER ARTHROSCOPY Left 06/18/2021 REMOVAL CENTRAL VENOUS ACCESS DEVICE TUNNELED W/ PORT PUMP Left 09/13/2019 Laterality: Left; Surgeon: Eduardo Muñoz MD; Location: [facility] INTERVENTIONAL RADIOLOGY (VIR) EGD W/ DILATION BALLOON N/A 06/30/2018 Laterality: N/A; Surgeon: Indra Parrish DO; Location: [facility] EGD DIAGNOSTIC N/A 04/07/2018 Laterality: N/A; Surgeon: Wilner Leigh MD; Location: [facility] COLONOSCOPY DIAGNOSTIC N/A 04/07/2018 Laterality: N/A; Surgeon: Wilner Leigh MD; Location: [facility] ENDOSCOPY KNEE REPLACEMENT Right 05/2015 done at [place]--CC ARTHROPLASTY KNEE TOTAL Right 04/2015 INSERTION PICC W/ PORT PUMP 2014 power port COLONOSCOPY DIAGNOSTIC 2006 SALPINGO-OOPHORECTOMY OPEN N/A 1983 APPENDECTOMY OPEN 1983 TONSILLECTOMY ADENOIDECTOMY 1967 EGD DIAGNOSTIC 10 months ago There were no vitals filed for this visit. Constitutional No fevers, chills or sweats, unintentional weight gain or weight loss, night pain, or night sweats except as per HPI. Cardiovascular No recent chest pain or palpitations. No claudication. No new or worsening lower extremity edema except as per HPI. Respiratory No new or worsening shortness of breath, dyspnea on exertion, orthopnea or paroxysmal nocturnal dyspnea except as per HPI. Gastrointestinal No recent heartburn or stomach upset, no history of ulcers except as per HPI. Musculoskeletal No joint pain, stiffness, or weakness except as per HPI. Endocrine No polyphagia, polydypsia, or polyuria. Hematologic No known or recent anemia, no excessive bleeding. Rheumatologic No history or currently active autoimmune or rheumatologic disease except as per HPI. Integumentary No new or relevant rashes or lesions except as per HPI. Neurologic No numbness, tingling, or weakness into her distal extremities except as per HPI. Constitutional Normal No acute distress. Well nourished. Well developed. Head/Face Normal Facial features - Normal. Eyebrows - Normal. Skull - Normal. Hair and scalp - Normal. Eyes Normal General - Right: Normal, Left: Normal. Lids/external - Right: Normal, Left: Normal. Conjunctiva - Right: Normal, Left: Normal. Ears Normal Inspection - Right: Normal, Left: Normal. Pinna - Right: Normal, Left: Normal. Nasopharynx Normal External nose - Normal. Nares - Right: Normal. Nasal Mucosa - Normal. Lips/teeth/gums - Normal. Buccal mucosa - Normal. Neck Exam Normal Inspection - Normal. Range of motion - Normal. Neck Exam Comments Supple. Respiratory Normal Inspection - Normal. Cough - Absent. Effort - Normal. Cardiovascular Normal Heart rate - Regular rate. Vascular Normal Pulses - Radial: Normal, Brachial: Normal, Dorsalis pedis: Normal, Posterior tibial: Normal. Capillary refill - Less than 2 seconds. Skin * Rash - Description: none. Extremity Normal No Edema. No Calf tenderness. Diabetic Foot Screen Normal Pulses - Dorsalis pedis: Normal, Posterior tibial: Normal. Neurological Normal Level of consciousness - Normal. Orientation - Normal. Memory - Normal. Psychiatric Normal No agitation. Appropriate mood and affect. Appropriate affect. Normal insight. Normal judgment. Interval exam: Lumbar spine Inspection: No erythema, ecchymosis, swelling or deformity. No open wounds. NVID Lumbar xray reviewed from 06/07/[address] Stephens 09/26/23 History obtained from patient. ASSESSMENT and PLAN: 1. Osteoarthritis of right sacroiliac joint - US IMAGING FOR ORTHO 2. Pain of right sacroiliac joint - US IMAGING FOR ORTHO 3. Lumbar spondylosis 4. Spondylolisthesis of lumbar region 5. Sacroiliitis Sarah did well with previous injection and so we elected to proceed with injection again today to the right SI with corticosteroid. We reviewed options once again including surgery, but we are not ready to proceed surgically. We will see her back in 3 months to re-evaluate and consider treatment options including repeat injection. Referrals: None Medications prescribed today: None Follow up plan: 3 month Possible US Guided right SI joint injection Severity of problem(s): Mild Risk of morbidity from the condition and/or testing or treatment: Low Medical Decision Making At today's visit I reviewed the history, physical examination, and previous pertinent imaging. We weighed the options of whether or not to proceed with an injection today based off of these findings and discussed alternatives. After this discussion, I felt that the injection was indicated and we elected to proceed. This evaluation and management service was a separate and identifiable service apart from the injection. LARGE JOINT/BURSA INJECTION AND/OR ASPIRATION Date/Time: 01/10/2024 12:30 PM Performed by: Garry Stephens MD Authorized by: Garry Stephens MD Supporting Documentation Indications: pain and osteoarthritis Procedure Details: Location: sacroiliac - R sacroiliac joint Local Anesthetic: bupivacaine 0.5% and lidocaine 1% Total Local Anesthetic: 4 mLs Guidance: ultrasound Ultrasound probe size: 4 mHz curvilinear Images were saved electronically. Needle size: 22 G Needle Length: 4.0 inch Approach: posterior Medication Verification: I have personally verified and performed the final check of the medication(s) used in this procedure prior to administration. The following items were included during the verification process for medication(s) administered: drug name, strength, volume, expiration, physical integrity and appearance of the medication(s). Medications administered: 1 mL BUPivacaine 0.5 %; 2 mL triamcinolone 40 MG/ML; 4 mL Lidocaine 10 mg/mL; 5 mL Sodium chloride (PF) 0.9 %; 4 mg dexAMETHasone 4 MG/ML Patient tolerance: patient tolerated the procedure well with no immediate complications Comments Medical Decision Making At today's visit I reviewed the history, physical examination, and previous pertinent imaging. We weighed the options of whether or not to proceed with an injection today based off of these findings and discussed alternatives. After this discussion, I felt that the injection was indicated and we elected to proceed. This evaluation and management service was a separate and identifiable service apart from the injection. Pre-Procedure Details The attending physician was present for the entire procedure. Consent: Consent was obtained prior to the procedure after discussion of the risks, benefits and alternatives, and expected outcomes were discussed with the patient. The possibilities of reaction to medication, bleeding, infection, the need for additional procedures, failure to diagnosis a condition, and creating a complication requiring operation were discussed with the patient. The patient concurred with the proposed plan, giving consent. Preparation: Patient was prepped in the usual sterile fashion. The patient was prepped with Chloraprep. Patient counseled on expected outcome and continued treatment and healing process. Patient tolerated the procedure well and was discharged in good condition with post-procedure instructions and anticipatory guidance regarding possible adverse reactions after the procedure including but not limited to infection, injection site flare reaction, allergic reaction. If corticosteroids were used then specifically the patient may develop hyperglycemia, facial flushing, heart palpitations amongst many other side effects associated with corticosteroids. I have reviewed, edited and added to the above note and agree with those findings. Additions if any: Garry Stephens MD, [facility] Rural Service Engineer - [facility] documented in this [facility] [place]03-19-2024 Instructions* Patient Instructions* Chelsea Olivarez - 01/10/2024 12:30 PM EDT Patient counseled on expected outcome and continued treatment and healing process. Patient tolerated the procedure well and was discharged in good condition with post-procedure instructions and anticipatory guidance regarding possible adverse reactions after the procedure including but not limited to infection, injection site flare reaction, allergic reaction. If corticosteroids were used then specifically the patient may develop hyperglycemia, facial flushing, heart palpitations amongst many other side effects associated with corticosteroids. documented in this [facility] [place]03-19-2024 Miscellaneous Notes* Addendum Note - Chelsea Olivarez - 01/10/2024 12:30 PM EDTAddended by: CHELSEA OLIVAREZ on: 01/10/2024 01:28 PM Modules accepted: [facility] Note* Addendum Note - Chelsea Olivarez - 01/10/2024 12:30 PM EDTAddended by: CHELSEA OLIVAREZ on: 01/10/2024 01:28 PM Modules accepted: Orders [facility]03-15-2024 History of Present illness Narrative* Rose Mary Zepeda MA - 01/06/2024 11:01 AM EDT MODIFIED DERRICK Score Description 0 No symptoms at all 1 No significant disability despite symptoms; able to carry out all usual duties and activities 2 Slight disability; unable to carry out all previous activities, but able to look after own affairs without assistance 3 Moderate disability; requiring some help, but able to walk without assistance 4 Moderately severe disability; unable to walk without assistance and unable to attend to own bodily needs without assistance 5 Severe disability; bedridden, incontinent and requiring constant nursing care and attention 6 TOTAL (0-6): 0__ MIGNON INDEX Activity Score FEEDING 0 = unable 5 = needs help cutting, spreading butter, etc., or requires modified diet 10 = independent _10 BATHING 0 = dependent 5 = independent (or in shower) ___5___ GROOMING 0 = needs to help with personal care 5 = independent face/hair/teeth/shaving (implements provided) __5____ DRESSING 0 = dependent 5 = needs help but can do about half unaided 10 = independent (including buttons, zips, laces, etc.) __10____ BOWELS 0 = incontinent (or needs to be given enemas) 5 = occasional accident 10 = continent ___10___ BLADDER 0 = incontinent, or catheterized and unable to manage alone 5 = occasional accident 10 = continent __10____ TOILET USE 0 = dependent 5 = needs some help, but can do something alone 10 = independent (on and off, dressing, wiping) ___10___ TRANSFERS (BED TO CHAIR AND BACK) 0 = unable, no sitting balance 5 = major help (one or two people, physical), can sit 10 = minor help (verbal or physical) 15 = independent _15 MOBILITY (ON LEVEL SURFACES) 0 = immobile or < 50 yards 5 = wheelchair independent, including corners, > 50 yards 10 = walks with help of one person (verbal or physical) > 50 yards 15 = independent (but may use any aid; for example, stick) > 50 yards ____15__ STAIRS 0 = unable 5 = needs help (verbal, physical, carrying aid) 10 = independent ____10__ TOTAL (0-100): ___100___ * Aguilar Alexandra CNP - 01/06/2024 10:[address] [facility] NOTE HISTORY OF PRESENT ILLNESS Elena Galeano is a 63 y.o. pleasant female who is seen in 45-day follow-up status post left atrial appendage closure with a Watchman FLX 24 mm device on 11/24/2023 Elena presents in the company of her Ashu in the office today the patient endorses being moderately active she states she has a lot of SI joint pain and knee pain. She believes she will have an upcoming procedure on her right side with pin placement for her SI joint pain. She endorses doing housework and outside work. Without shortness of breath or chest pain. She denies palpitations. She denies abdominal pain or bloating, hematochezia Matich or hematemesis. Patient's medical comorbidity also includes atrial fibrillation, CLL, NHL, chronic anemia and essential hypertension Current Outpatient Medications Medication Instructions aspirin 81 mg, Oral, Daily buPROPion (WELLBUTRIN XL) 300 mg, Oral, Every morning before breakfast carvediloL (COREG) 12.5 mg, Oral, 2 times daily with meals cetirizine (ZYRTEC) 10 mg, Oral, Daily clopidogreL (PLAVIX) 75 mg tablet Take 300 mg (4 tablets) the evening prior to procedure, then take75 mg (1 tablet) once daily starting the morning of your procedure. escitalopram oxalate (LEXAPRO) 20 mg, Oral, Daily fenofibrate 160 mg, Oral, Daily, Give with food folic acid (FOLVITE) 1 mg, Oral, Daily lisinopriL (PRINIVIL,ZESTRIL) 5 mg, Oral, Daily losartan (COZAAR) 25 mg, Oral, Daily pantoprazole (PROTONIX) 40 mg, Oral, Daily Praluent Pen 75 mg/mL injection 1 mL, Subcutaneous, Every 21 days traZODone (DESYREL) 100 mg, Oral, Nightly PRN triamterene-hydrochlorothiazide (DYAZIDE) 37.5-25 mg per capsule 1 capsule, Oral, Daily CARDIOVASCULAR & METABOLIC PROBLEMS Atrial fibrillation [id number] score 5 status post left atrial appendage closure with a Watchman FLX left atrial appendage occluder 24 mm device on 11/24/2023 Hypertension; continue carvedilol 12.5 mg daily, lisinopril 5 mg daily, losartan 25 mg daily CLL NHL ASSESSMENT & PLAN: DAPT therapy of aspirin 81 mg daily and Plavix 75 mg daily for 6 months postprocedure then will decrease to single antiplatelet therapy After 6 months of DAPT therapy will undergo CT or RAYO CBC, BMP today EKG done and reviewed OBJECTIVES BP (!) 153/88 (BP Location: Right arm, Patient Position: Sitting, BP Cuff Size: Adult) Pulse (!) 56 Ht 5' 5 Wt 97.5 kg (215 lb) SpO2 98% BMI 35.78 kg/m General Appearance: healthy-looking . Not in acute distress Respiratory: good air entry bilaterally. No wheeze or crackles. Cardiovascular: good peripheral pulses. JVP is flat. Regular rate and rhythm. Normal S1-S2. No murmur/gallop/rub. Abdomen: soft. Non-tender. Non-distended. BRONSON: no peripheral edema. Skin: no rash. No cyanosis. No clubbing of fingers. 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 (DRG code 273 or 274) Medications: General anesthesia provided by Andrew Kaiser MD Indication for Procedure: A 63 y.o. adult with history of atrial fibrillation. 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 Fernie Paredes MD to discuss non-interventional, pharmacologic options to stroke prevention. No qualified Resident was available to assist in the case therefore due to the complexity,Gregory Montoya MD was utilized as my bus assistant Description of Procedure: Following informed consent, the patient was brought to the cardiac catheterization laboratory and placed under general anesthesia by Andrew Kaiser MD . A transesophageal echocardiographic probe was advanced into the mid-esophagus by Dr Abhijit Bobby MD with baseline images including left atrial appendage size measurement and color flow Doppler performed. There was no evidence of left atrial or LA appendage thrombus and therefore the decision was made to proceed with the procedure. A 5F micropuncture kit was used to access the femoral vein with sheath placement as follows: * 6F Terumo sheath was introduced into the right femoral vein followed by placement of perclose suture for subsequent closure. We then advanced a 0.032-inch Versacross-wire into the SVC and exchanged out the Proglide sheath for a Lawrence sheath with a transseptal needle. Under fluoroscopic and echocardiographic images, the Micah versacross transseptal needle was used to perform transseptal puncture across the inter-atrial septum. The Lawrence sheath was advanced into the left atrium and the dilator to dilate the septum and then removed from the body. Heparin was then administered for full anticoagulation with intermittent monitoring of ACT. The Lawrence sheath was exchanged out for a 14-[place]izen [place] Atrite Watchman sheath, which was placed in the left atrium. A 6-Citizen [place] pigtail catheter was advanced into the sheath and the stiff wire was then removed. Under fluoroscopic and echocardiographic guidance, the pigtail catheter was then placed selectively in the left atrial appendage and multiple angiographic images were obtained. We then advanced the 14-[place]izen [place] Atrite sheath into the left atrial appendage and removed the pigtail catheter from the body. We then advanced a 24-mm Watchman FLX atrial appendage closure device into position. We then deployed the device in the left atrial appendage under fluoroscopic and echocardiographic guidance using the standard technique. A tug-test was performed confirming stability of the device. After angiography and echocardiography did not show evidence of leak, the device was released. The 14-[place]izen [place] sheath was removed and hemostasis was achieved using a Perclose intravascular suture. The patient tolerated the procedure well. Complications: None Total amount of contrast: 20 cc Visipaque contrast Hemodynamics: LA pressure: A wave 27, V wave 25, mean LA 21 RAYO Measurements: Left Atrial Orifice Maximum Width Pre-Device Deployment: 16 mm @ 45 degrees Left Atrial Occluder Maximum Width Post-Device Deployement: 20 mm @ 0 degrees Post-Device Deployment Margin Residual Leak: 0 mm Device Used: Watchman left atrial appendage occluder 24 mm; LOT# [id number] Summary: The following findings were noted on this study. Successful placement of Watchman FLX left atrial appendage occluder 24 mm device. Our recommendations based on the above mentioned findings are: 1. The patient will be sent to a monitored unit 2. The patient will be started on Aspirin 81mg daily and Plavix for 6 months. The entire procedure was performed with and interpretation verified by Kandice Christie [facility]01-23-2024 History of Present illness Narrative* Jurgen Holden RN - 11/15/2023 11:29 AM EST [facility] Note-called pt, spoke to Ashu. Updated that I spoke to Dr. Parrish's office this morning and received clearance to proceed with RAYO for LAAO procedure. Will work with scheduling to get pr procedure CT scheduled and call back with the details. documented in this [id number] History of Present illness Narrative* Jurgen Holden RN - 11/11/2023 9:49 AM EST [facility] Note-Returned call to Sarah in response to voicemail received stating she wanted to follow up onLAAO progress because she hasn't heard from anyone in a couple of days. Informed Sarah that we are still waiting on a response from Dr. Parrish's office for pre procedure clearance for RAYO. Updated her that I did call Dr. Parrish's office this morning and they confirmed that they received our request for clearance for RAYO faxed on 11/08 and that they are going to be reaching out to her today. Verbalizes understanding and thankful for call. documented in this [id number] History of Present illness Narrative* Jurgen Holden RN - 11/08/2023 2:11 PM EST Pt called, LVM to update that after discussion with RAYO imaging physicians, GI clearance is required prior to proceeding with LAAO d/t history of previous esophageal stricture. Requested call back todiscuss. documented in this [id number] History of Present illness Narrative* Jurgen Holden RN - 11/08/2023 11:44 AM EST Pt med list updated. documented in this [id number] History of Present illness Narrative* Jurgen Holden RN - 11/08/2023 10:53 AM EST [facility]-completed and signed LAAO shared decision form received from Dr. Paredes. Will scan to pt's chart. documented in this [id number] History of Present illness Narrative* Kandice Christie MD - 11/08/2023 10:25 AM EST [facility] Consult Heart & Vascular [facility] Physician Group 11/08/2023 Kandice Christie MD [address] [facility] Medical Office [facility] [id number] Patient: Elena Galeano Date of : 1960 (63 y.o.) Referring Provider: No ref. provider found PCP: Fernie Paredes, Problem List Items Addressed This Visit None Visit Diagnoses Atrial fibrillation, unspecified type (HCC) - Primary Relevant Orders ECG 12 lead (Completed) CLL (chronic lymphocytic leukemia) (HCC) NHL (nodular histiocytic lymphoma) (HCC) Essential hypertension #1 paroxysmal atrial fibrillation Patient has had paroxysmal atrial fibrillation for 1 year now. Her heart rate is well controlled onbeta-benedicto. Her [id number] score is 5 giving an annual stroke risk around 7% without any anticoagulation. Her HAS-BLED score is also 3 giving an annual risk of bleeding on any anticoagulant about6%. She would be therefore someone who needs to be on either oral anticoagulation or an alternate therapy. She has had chronic anemia with underlying hematological malignancy. She has noticed extensive skin bruising being on Eliquis. In addition she also finds the cost of the medication prohibitiveand she does not want to switch to warfarin. I am concerned that she may have drug noncompliance given the prohibitive cost of the medication and therefore she would be an ideal candidate to considerfor left atrial appendage closure with either amulet or watchman device. Explained to the patient what is the pathophysiology of stroke in people with A. fib and available options. Explained to her the risk and benefits of undergoing left atrial appendage closure. Risk include but not limited to risk of bleeding infection stroke [place] or need for emergent open heart surgery. Patient and her family fully understood the procedure and associated risk and agreed to proceed further. In meanwhile have advised patient to continue oral anticoagulation with Eliquis while waiting for procedure she is to continue with carvedilol for rate control Follow-up: No follow-ups on file. Chief Complaint: Follow-up Subjective History of Present Illness: Elena Galeano is a 63 y.o. 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 Patientstates she was diagnosed with atrial fibrillation a year ago and has had a prior history of stroke with left eye blindness. Since then she has been on Eliquis. However being on Eliquis she has noticed extensive skin bruising with the slightest minimal contact injury is affecting her quality of life. She also finds the Eliquis is very expensive and she can likely continue to 40 medication. When ask ed she denies any symptoms of melena hematuria or epistaxis. No history of any head injury. She hasno other complaints of anginal chest pains or shortness of breath orthopnea PND or any leg swelling. She has not had any recent blood transfusions for anemia either. No history of recent fever cough chills nausea vomiting diarrhea headache or any visual disturbances No known history of CAD AZ diabetes peripheral artery disease or any chronic lung disorder Objective Imaging: I independently reviewed the EKG and agree with the interpretation(s) with the following comments. Normal sinus rhythm with PAC ECG 12 lead by Grisel Tim MA (11/08/2023 0834) Past Medical History: Diagnosis Date Depression Hyperlipidemia Hypertension Stroke (HCC) 10/29/2022 Past Surgical History: Procedure Laterality Date JOINT REPLACEMENT History reviewed. No pertinent family history. Social History Tobacco Use Smoking Status Never Smokeless Tobacco Never Allergies: Patient has no known allergies. HOME Medications: Current Outpatient Medications on File Prior to Visit Medication Sig apixaban (ELIQUIS) 5 mg Tab Take by mouth . buPROPion (WELLBUTRIN XL) 300 MG 24 hr tablet Take 1 (one) tablet (300 mg total) by mouth every morning before breakfast . carvediloL (COREG) 12.5 MG tablet Take 1 (one) tablet (12.5 mg total) by mouth 2 (two) times a day with meals . cetirizine (ZYRTEC) 10 MG chewable tablet Chew and Swallow 1 (one) tablet (10 mg total) daily . escitalopram oxalate (LEXAPRO) 20 MG tablet Take 1 (one) tablet (20 mg total) by mouth daily . folic acid (FOLVITE) 1 MG tablet Take 1 (one) tablet (1 mg total) by mouth daily . ketorolac (TORADOL) 10 mg tablet Take 1 (one) tablet (10 mg total) by mouth every 6 (six) hours as needed for pain . losartan (COZAAR) 25 MG tablet Take 1 (one) tablet (25 mg total) by mouth daily . Praluent Pen 75 mg/mL injection Inject 1 mL (75 mg total) under the skin every 21 days . traZODone (DESYREL) 100 MG tablet Take 1 (one) tablet (100 mg total) by mouth nightly as needed forsleep . triamterene-hydrochlorothiazide (DYAZIDE) 37.5-25 mg per capsule Take 1 (one) capsule by mouth daily . No current facility-administered medications on file prior to visit. Vital Signs: BP 119/78 (BP Location: Right arm, Patient Position: Sitting, BP Cuff Size: X- large Adult) Pulse 72 Ht 5' 5 Wt 96.8 kg (213 lb 4.8 oz) SpO2 94% BMI 35.49 kg/m Physical Exam Vitals reviewed. Constitutional: Appearance: Normal appearance. Elena Galeano is well-developed. Elena Galeano is not diaphoretic. Neck: Thyroid: No thyromegaly. Vascular: No JVD. Trachea: No tracheal deviation. Cardiovascular: Rate and Rhythm: Normal rate and regular rhythm. Pulses: Intact distal pulses. Heart sounds: Normal heart sounds. No murmur heard. No friction rub. No gallop. Pulmonary: Effort: Pulmonary effort is normal. No respiratory distress. Breath sounds: Normal breath sounds. No wheezing or rales. Musculoskeletal: Right lower leg: No edema. Left lower leg: No edema. Neurological: Mental Status: Elena Galeano is alert. No results found for: CHOL, LDLCALC, LDLDIRECT, TRIG, HDL documented in this [id number] Instructions* Patient Instructions* Jurgen Holden RN - 11/03/2023 4:27 PM EST ..How to contact your Care Team: Provider: Gregory Montoya MD Nurse: Jurgen Holden RN In case of an emergency please call 911. REFILLS: When in need for refills please call your care team or the office at [phone]. Please include medication name, pharmacy name, and specify 30-day or 90-day supply. Please check with your pharmacy within 24 hours of request for your refill. You must follow up as directed to continue current refills. Thank you 2-Pre-CT You are scheduled for a pre-CT scan, on at [facility]. Please arrive at the Short Term Care Unit at . If your physician requires blood work prior to your exam, you will be given an order for blood workthat may be performed at the facility of your choice within two weeks prior to the scan. Procedure Descriptions: You must be able to lie flat on your back for the duration of the exam. A non- ionic contrast material will be injected through and IC into the arm or hand. This contrast will enable the blood vesselsto be visualized as well as measure the size of your left atrial appendage. Patient Preparation: 1. Remove all jewelry from all parts of the body. 2. Wear comfortable clothing and shoes. 3. You may eat prior to the scan. Medications may be taken. Please drink a few extra glasses that morning and/or prior to your scan to ensure you are properly hydrated. Please complete required pre-procedure blood work on at the [facility] main floor lab. No fasting is required for this blood work. 3-MARY LOU Closure PRE-PROCEDURE INSTRUCTIONS Date: Check-In Time: The check in time is the time that you need to be at the hospital. This time allows adequate preparation time prior to your procedure. It is not the time of the procedure. LOCATION: [facility]. Please park in the garage next to the medical office building. If needed, bone crusher parking is available at the front entrance of the hospital. Please report to the first floor visitor information desk inside the main entrance of the hospital to get registered. PLEASE DO NOT EAT OR DRINK ANYTHING AFTER MIDNIGHT THE NIGHT BEFORE YOUR PROCEDURE (this includes NO candy, gum, lozenges, or nicotine products of any kind) . You may have a small sip of water with your morning medications if needed. MEDICATIONS: You may take your scheduled morning medications with a small sip of water with the exception of those listed below. We ask you bring an accurate medication list, or bring your medications in their bottles to the hospital with you. If you are taking Xarelto, Pradaxa, or Eliquis, please do not hold this medication prior to procedure unless instructed by Dr. Christie's nurse. Please begin taking Plavix (clopidigrel) as instructed starting the evening prior to your procedure. Please start taking a baby Aspirin (81mg) daily STARTING THE MORNING OF YOUR PROCEDURE if you have not already started and there is no contraindication. Additional Instructions: We plan to send you home the same day, but please come prepared for an overnight stay just in case.Please arrange to have someone drive you home the day you are discharged. If you have an allergy to contrast dye, shellfish, or iodine, please notify your nurse. No smoking or use of products containing nicotine for 24 hours prior to your procedure. This includes no cigarettes, cigars, chewing tobacco, or vaping. Please obtain a pre-surgical skin scrub at your local pharmacy called al- you can get this over the counter, you can ask the pharmacist for direction on where to find this in the store. Please wash with this the night prior to your surgery and the morning of, but avoid your face and genital areas. 5.You must be accompanied by someone who is able to drive you home after the procedure. ~PLEASE NOTE: THIS PROCEDURE IS BILLED AN INPATIENT PROCEDURE. TYPICAL RECOVERY ALLOWS FOR SAME DAY DISCHARGE, SO THIS INPATIENT VS OUTPATIENT STATUS IS SUBJECT TO CHANGE. You may reach our nurse line at [phone] for any questions or concerns. Please leave a message and we will return your call within 24 hours, Tuesday- Tuesday. For billing questions, please contact your insurance and/or our central billing office at [phone]. Thank you for choosing [facility], we look forward to caring for you. documented in this [id number] History of Present illness Narrative* Britta Mitchell - 11/02/2023 10:30 AM EST Review of Systems A complete review of systems are negative except those consistent with HPI No fevers, chills or sweats No cough, chest pain No dysphagia, odynophagia No abdominal pain, nausea, vomiting, diarrhea No dysuria, frequency, hematuria No headache, dizziness, focal neurologic complaints No ear pain No sinus pain No rash No weight loss No joint or muscular pain Recent travel history? No * Monse Shipley MD - 11/02/2023 10:30 AM EST HPI Elena Galeano 63 y.o. female presents today for Toe Pain (4th toe on left foot from great toe. Dr. Uriarte debrided abscess on Sunday 07/15. No ATBs prescribed from him. ) Patient states ID consult appointment in June of 2023 that she is longstanding history of for several months of a left toe infection. She denies any specific trauma or inciting event that started this all. Past medical history includes stroke, AFib, left eye blindness, CLL and diffuse non-Hodgkin's lymphoma history status post chemotherapy s/p 10 yrs ago, GERD, hyperlipidemia, hypertension, DMII per record, fatty liver disease, obstructive sleep apnea, obesity, anemia, history of COVID. 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 Blackwood. History of former tobacco use, not current. No significant alcohol use, occasional. No illicit abx. No animal bites/scratches, no trauma noted, no barefoot outdoor walking. No hx of gout Patient was seen by Podiatry 05/05/2023 due to ingrown toenail of the 4th left toe ongoing issues for about 3 months at that time per notes with 2 courses of Keflex given at that time. Podiatry diagnosed with a patient with concerns for abscess and cellulitis of the distal 4th toe on 05/05 and MRI was ordered but was negative on 05/10 for deeper infection at that time. Patient was treated with local mupirocin and antibiotic oral course of cefixime. Patient was then treated in the May timeframe with a course of Levaquin per Podiatry and then a course of doxycycline for 14 days new x-ray ordered showing soft tissue swelling on 06/14 without clear bony disease. Patient was then seen on 06/28by Podiatry and a repeat MRI was order due to concern for osteomyelitis of the 4th toe per Podiatryalthough radiology report was negative from 06/29. Hx significant for recurrent purulence reported and patient was referred at this visit to Infectious Disease for IV antibiotics as well as plans forsurgical debridement with an incision and drainage pending for 07/08 with consideration of hyperbaric treatment as well noted No known allergies to antibiotics noted ID consult visit 07/04/2023 Patient denies any fevers or chills. Does note some sweats. No systemic symptoms otherwise. Denies any significant left toe pain. She states that there is a pocket in her plantar area that she believes is collecting fluid and then she has intermittent drainage from this area. ID clinic follow up 07/13, she is status post surgery by Podiatry on 07/08 for incision and drainageof left 4th toe with abscess and cellulitis reported. There was no gross purulence for operative report and cultures were taken. Patient here for follow up of culture data. The culture data was obtained yesterday and plans for adjustment of antibiotics today. Patient denies any fevers chills or sweats. Culture shows Staphylococcus epidermidis rare which is likely a contaminant, resistant to clindamycin and penicillin but otherwise sensitive. Patient also grew Finegoldia. AFB and fungal stains/cultures are pending. Patient's foot is currently dressed, no significant pain noted. No other complai nts reported F/up 07/18, on augmentin. Tolerating well. Some left 4th toe pain, sutures in place. F/up podiatry today. No f/c/s. No other symptoms on ROS. Patient was started on Augmentin 07/13 but not note any significant improvement in pain or discomfort. Some blood on drainage but no other discharge and no purulence noted. No tracking cellulitis. ID clinic 07/22, messaged by podiatry to see patient today for iv abx as new abscess formed again on4th toe and I&D again on 07/21 with new cx taken. NO inciting event and no pedicures of recent. No trauma. ID clinic 07/29, for f/up visit. Ongoing drainage pus reported. No pain. No f/c/s. On po augmentinand zyvox, already these well with some minimum diarrhea of 1-2 stools a day. However purulence of left 4th toe continues despite oral antibiotics with intermittent purulent drainage from both dorsaland lateral aspects. Patient notes no other symptoms or toe involvement. Had MRI today which shows abscess but no osteomyelitis. Still no word from insurance about approving home IV infusion. Saw Podiatry yesterday. Infectious disease clinic follow up. Patient was seen by Podiatry on 08/11 with recurrent issues ofswelling and I&D found gelatinous material was removed. Cultures negative. Patient tolerating ertapenem. Patient feels that her toe is improved today. Denies any side effects of the central line or antibiotics reported. No fevers or chills. Infectious disease clinic appointment. Patient is still taking IV antibiotics. Case was discussed with Podiatry since last visit. Patient is on ertapenem and going to infusion center for infusions. Previous pathology shows hyperkeratosis and possible trauma. Patient was seen by Podiatry on 08/23 who felt that the toe is healing well. Patient denies any side effects of the antibiotics. No feverschills or sweats. No abdominal symptoms. There is no describes pain in her foot or drainage reported. Please follow-up appointment. Patient denies any fevers or chills. He is currently off antibiotics.Here for follow-up evaluation. Patient is still with tenderness of the toe especially on the dorsalaspect when there is pressure puts this area but denies any drainage. Patient denies any other systemic symptoms. There are still areas of what the structure was at him out of toe, and then remains unclear if this was part of her soft tissues something foreign as well. Patient continues to deny history of walking barefoot in getting something in her toe or a fly bite Infectious disease follow-up visit 09/28. No fevers chills or sweats or systemic symptoms. No toe pain. Still with opening on the plantar surface of her left foot toe and had silver nitrate applied by Podiatry but scab has fallen off and patient states that there is older lookingPus-like material that comes out occasionally. She is currently not dressing it. She denies any significant drainage. No tenderness noted. Patient did have trauma to her left foot as exemplified by a bruise on the dorsum of her foot. No other toe abnormalities reported. Currently not on antibiotics. ID clinic appt 11/02/23, no f/c/s. No drainage. NO pain when walking. No abx or topicals at this time. Patient overall feels that her toe is improved and there has been no issues unless she presses onit where there is mild tenderness although this is improving. There is no open wound. Patient states that since the substance came out of her toe which she believes is cartilage, her toe is healing well. Patient denies any other new complaints. She is planning for future knee surgery for degenerative disease and the timing of this was discussed. ROS Review of Systems A complete review of systems are negative except those consistent with HPI No fevers, chills or sweats No cough, chest pain No dysphagia, odynophagia No abdominal pain, nausea, vomiting, diarrhea No dysuria, frequency, hematuria No headache, dizziness, focal neurologic complaints No ear pain No sinus pain No rash No weight loss No joint or muscular pain Recent travel history? No HISTORY/ALLERGIES/MEDS Allergies Allergen Reactions Nsaids Has CKD-3a, and Anemia Past Medical History: Diagnosis Date A-fib Anemia low Fe Arrhythmia Arthritis ASCUS of cervix with negative high risk HPV Asthma not asthma B12 deficiency Carotid stenosis, bilateral-Right 30%, and left 60% Central retinal artery occlusion of left eye CKD (chronic kidney disease) stage 3, GFR 30-59 ml/min-3a patient denies CLL (chronic lymphocytic leukemia) 2011 [id number] on 09-30-2020 Depression Diffuse non-Hodgkin's lymphoma chemotherapy Folate deficiency GERD (gastroesophageal reflux disease) Gout pt denies Hiatal hernia pt denies Hyperglycemia Hyperlipidemia LDL goal <70 Hypertension Hyponatremia Liver disease fatty liver Non-Hodgkin lymphoma 2012 in remission PERCY (obstructive sleep apnea) PVC's (premature ventricular contractions) 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 (blindness) Past Surgical History: Procedure Laterality Date I&D BURSA FOOT Left 07/08/2023 Laterality: Left; Surgeon: Dawn Uriarte DPM; Location: [facility] OR INJECTION NERVE OTHER PERIPHERAL Left 12/16/2022 Laterality: Left; Surgeon: Isreal Sigala MD; Location: [facility] OR GUIDANCE FLUOROSCOPIC NEEDLE OR CATHETER PLACEMENT FOR SPINE INJECTION ADD-ON PX Left 12/16/2022 Laterality: Left; Surgeon: Isreal Sigala MD; Location: [facility] OR SUSPENSION URETHRA/URETHROVESICAL FEMALE OPEN W/ SYNTHETIC MATERIAL (SLING) Midline 08/31/2022 Laterality: Midline; Surgeon: Dariusz Rangel MD; Location: [facility] OR CYSTOURETHROSCOPY W/ DILATION BLADDER Midline 08/31/2022 Laterality: Midline; Surgeon: Dariusz Rangel MD; Location: [facility] OR COLPORRHAPHY ANTEROPOSTERIOR REPAIR CYSTOCELE & RECTOCELE Midline 08/31/2022 Laterality: Midline; Surgeon: Dariusz Rangel MD; Location: [facility] OR ARTHRODESIS SACROILIAC JOINT MINIMALLY INVASIVE W/ TRANSFIXING DEVICE Left 06/17/2022 Laterality: Left; Surgeon: Isreal Sigala MD; Location: [facility] OR GUIDANCE FLUOROSCOPIC NEEDLE OR CATHETER PLACEMENT FOR SPINE INJECTION ADD-ON PX Left 06/17/2022 Laterality: Left; Surgeon: Isreal Sigala MD; Location: [facility] OR EGD W/ DILATION BALLOON N/A 12/01/2021 Laterality: N/A; Surgeon: Indra Parrish DO; Location: [facility] ENDOSCOPY SHOULDER ARTHROSCOPY Left 06/18/2021 REMOVAL CENTRAL VENOUS ACCESS DEVICE TUNNELED W/ PORT PUMP Left 09/13/2019 Laterality: Left; Surgeon: Eduardo Muñoz MD; Location: [facility] INTERVENTIONAL RADIOLOGY (VIR) EGD W/ DILATION BALLOON N/A 06/30/2018 Laterality: N/A; Surgeon: Indra Parrish DO; Location: [facility] ENDOSCOPY EGD DIAGNOSTIC N/A 04/07/2018 Laterality: N/A; Surgeon: Wilner Leigh MD; Location: [facility] ENDOSCOPY COLONOSCOPY DIAGNOSTIC N/A 04/07/2018 Laterality: N/A; Surgeon: Wilner Leigh MD; Location: [facility] ENDOSCOPY KNEE REPLACEMENT Right 05/2015 done at [place]--CC ARTHROPLASTY KNEE TOTAL Right 04/2015 INSERTION PICC W/ PORT PUMP 2014 power port COLONOSCOPY DIAGNOSTIC 2006 SALPINGO-OOPHORECTOMY OPEN N/A 1983 APPENDECTOMY OPEN 1983 TONSILLECTOMY ADENOIDECTOMY 1968 EGD DIAGNOSTIC 10 months ago Social History Socioeconomic History Marital status: Spouse name: Not on file Number of children: Not on file Years of education: Not on file Highest education level: Not on file Occupational History Employer: RETIRED Tobacco Use Smoking status: Former Packs/day: 0.75 Years: 35.00 Additional pack years: 0.00 Total pack years: 26.25 Types: Cigarettes Quit date: 04/23/2013 Years since quittin.2 Smokeless tobacco: Never Vaping Use Vaping Use: Never used Substance and Sexual Activity Alcohol use: Yes Alcohol/week: 2.0 standard drinks of alcohol Types: 2 Cans of beer per week Drug use: Never Sexual activity: Not Currently control/protection: Menopause Other Topics Concern Service Not Asked Blood Transfusions Not Asked Caffeine Concern Not Asked Occupational Exposure Not Asked Hobby Hazards Not Asked Sleep Concern Not Asked Stress Concern Not Asked Weight Concern Not Asked Special Diet Not Asked Back Care Not Asked Exercise Not Asked Bike Helmet Not Asked Seat Belt Not Asked Domestic Violence No Social History Narrative Not on file Social Determinants of Health Financial Resource Strain: Not on file Food Insecurity: Not on file Transportation Needs: Not on file Physical Activity: Not on file Stress: Not on file Social Connections: Not on file Intimate Partner Violence: Not on file Housing Stability: Not on file Family History Problem Relation Age of Onset Hypertension Mother Lipid Disorder Mother Depression Mother Clotting Disorder Mother hx of DVT Dementia Father Arrhythmia Father A-Fib Anesth Problems Sister post-op n/v Breast Cancer Maternal Aunt Cancer- Other Maternal Uncle melanoma Ovarian Cancer Paternal Aunt Cancer Paternal Aunt brain Lung Cancer Maternal Grandfather Hypertension Son Lipid Disorder Daughter No known problems Daughter Autism Grandson Current Outpatient Medications: Albuterol (Ventolin HFA) 108 (90 Base) MCG/ACT Aero Soln inhaler, Inhale 2 puffs every 6 hours as needed for Wheezing., Disp: 18 g, Rfl: 0 Allopurinol 100 MG tablet, Take 1 tablet by mouth daily., Disp: 90 tablet, Rfl: 3 Amoxicillin-clavulanate 875-125 MG tablet, Take 1 tablet by mouth every 12 hours for 10 days., Disp: 20 tablet, Rfl: 0 apixaban 2.5 MG tablet, 2.5 mg 2 tabs, BID- Lot # [id number] 08.15, Disp: 56 tablet, Rfl: 0 buPROPion (Wellbutrin XL) 300 MG tablet XL, Take 1 tablet by mouth every morning before breakfast.,Disp: 90 tablet, Rfl: 0 carveDILOL (Coreg) 12.5 MG tablet, Take 1 tablet by mouth 2 times daily with meals. Given by Dr. Calderon, Disp: , Rfl: Cetirizine 10 MG tablet, Take 1 tablet by mouth daily as needed for Allergies. OTC, Disp: , Rfl: Clindamycin Phos-Benzoyl Perox 1.2-3.75 % Gel, Apply 1 Application topically daily. Given by Dermatology Dr. Dejesus, Disp: , Rfl: Clopidogrel 75 MG tablet, Take 1 tablet by mouth daily., Disp: 90 tablet, Rfl: 3 cyanocobalamin 1000 MCG tablet, Take 1 tablet by mouth daily. Chew 1 tab q daily, Disp: 90 tablet, Rfl: 0 Evolocumab (Repatha SureClick) 140 MG/ML Solution Auto-injector injection, Inject 1 mL under the skin every 14 days. (Patient taking differently: Inject 1 mL under the skin every 14 days. Last dose 06/17/2023), Disp: 2 mL, Rfl: 11 fenofibrate 160 MG tablet, Take 1 tablet by mouth daily., Disp: 90 tablet, Rfl: 3 Folic acid 1 MG tablet, Take 1 tablet by mouth daily., Disp: 90 tablet, Rfl: 0 Lisinopril 5 MG tablet, Take 1 tablet by mouth daily. Cancel previous refills, Disp: 90 tablet, Rfl: 0 magnesium oxide 400 (240 Mg) MG, Take 1 tablet by mouth daily. OTC, Disp: , Rfl: Mupirocin 2 % ointment, Apply topical TID for 7 days, Disp: 30 g, Rfl: 0 Pantoprazole (Protonix) [address] tablet DR, Take 1 tablet by mouth 2 times daily (take before meals)., Disp: 180 tablet, Rfl: 0 traZODone 100 MG tablet, Take 1 tablet by mouth at bedtime., Disp: 90 tablet, Rfl: 0 triamterene-hydrochlorothiazide (Dyazide) 37.5-25 MG per capsule, Take 1 capsule by mouth daily. Cancel previous refills, Disp: 90 capsule, Rfl: 3 hydroCODone-acetaminophen 5-325 MG tablet, Take 1 tablet by mouth every 4 hours as needed for Moderate Pain for up to 3 days., Disp: 18 tablet, Rfl: 0 EXAM BP 128/72 (BP Location: Right arm, BP Position: Sitting) Pulse 82 Temp 96.8 F (36 C) (Temporal) Resp 18 Ht 1.651 m (5' 5) Wt 94.8 kg (209 lb) SpO2 97% BMI 34.78 kg/m Smoking Status Former Physical Exam Vitals and nursing note reviewed. Constitutional: General: Sarah Galeano is not in acute distress. Appearance: Normal appearance. HENT: Head: Normocephalic and atraumatic. Mouth/Throat: Pharynx: Oropharynx is clear. No oropharyngeal exudate. Eyes: Extraocular Movements: Extraocular movements intact. Conjunctiva/sclera: Conjunctivae normal. Pupils: Pupils are equal, round, and reactive to light. Cardiovascular: Rate and Rhythm: Normal rate and regular rhythm. Pulses: Normal pulses. Heart sounds: Normal heart sounds. No murmur heard. Pulmonary: Effort: Pulmonary effort is normal. No respiratory distress. Breath sounds: Normal breath sounds. No rhonchi or rales. Abdominal: General: Bowel sounds are normal. There is no distension. Palpations: Abdomen is soft. Tenderness: There is no abdominal tenderness. There is no guarding. Genitourinary: Comments: No CVA or suprapubic tenderness Musculoskeletal: General: No swelling or tenderness. Normal range of motion. Cervical back: Normal range of motion and neck supple. No rigidity. Comments: Left 4th toe with no wound any further. Minimal tenderness on deep palpation underneath proximal areas toe but no other areas of tenderness. Mild restriction of the toe. No warmth or redness. No signs of infection Skin: General: Skin is warm and dry. Findings: No rash. Neurological: General: No focal deficit present. Mental Status: Sarah Galeano is alert. Psychiatric: Mood and Affect: Mood normal. Behavior: Behavior normal. Thought Content: Thought content normal. LABS CBC Lab Results Component Value Date WBC 6.6 06/29/2023 HGB 13.2 06/29/2023 HCT 39.1 06/29/2023 PLATELET 218 06/29/2023 MCV 97.4 06/29/2023 EDIF Lab Results Component Value Date RBCDISTRIBU 14.0 06/29/2023 GRNLOCYT 43.5 09/29/2022 LYMPHOCYT 45.1 09/29/2022 MONOCYTELEC 9.2 09/29/2022 EOSINOPHILS 1.2 04/21/2023 EOSINOPHILS 0.1 04/21/2023 BASOPHILS 0.6 04/21/2023 BASOPHILS 0.0 04/21/2023 GRNLOCTYABS 3.0 11/03/2016 LYMPHOCYTABS 1.8 04/21/2023 MONOSABSOLU 0.5 11/03/2016 EOSINOPHLABS 0.09 09/29/2022 BASOPHILSABS 0.1 11/03/2016 PLATELET 218 06/29/2023 MPV 8.5 06/29/2023 EDIF Lab Results Component Value Date RBCDISTRIBU 14.0 06/29/2023 GRNLOCYT 43.5 09/29/2022 LYMPHOCYT 45.1 09/29/2022 MONOCYTELEC 9.2 09/29/2022 EOSINOPHILS 1.2 04/21/2023 EOSINOPHILS 0.1 04/21/2023 BASOPHILS 0.6 04/21/2023 BASOPHILS 0.0 04/21/2023 GRNLOCTYABS 3.0 11/03/2016 LYMPHOCYTABS 1.8 04/21/2023 MONOSABSOLU 0.5 11/03/2016 EOSINOPHLABS 0.09 09/29/2022 BASOPHILSABS 0.1 11/03/2016 PLATELET 218 06/29/2023 MPV 8.5 06/29/2023 ESR Lab Results Component Value Date RBCDISTRIBU 14.0 06/29/2023 GRNLOCYT 43.5 09/29/2022 LYMPHOCYT 45.1 09/29/2022 MONOCYTELEC 9.2 09/29/2022 EOSINOPHILS 1.2 04/21/2023 EOSINOPHILS 0.1 04/21/2023 BASOPHILS 0.6 04/21/2023 BASOPHILS 0.0 04/21/2023 GRNLOCTYABS 3.0 11/03/2016 LYMPHOCYTABS 1.8 04/21/2023 MONOSABSOLU 0.5 11/03/2016 EOSINOPHLABS 0.09 09/29/2022 BASOPHILSABS 0.1 11/03/2016 PLATELET 218 06/29/2023 MPV 8.5 06/29/2023 Lab Results Component Value Date SODIUM 133 (L) 06/29/2023 POTASSIUM 4.3 06/29/2023 CHLORIDE 100 06/29/2023 CO2 25 06/29/2023 BUN 16 06/29/2023 CREATSERUM 0.82 06/29/2023 GLUCOSE 123 (H) 06/29/2023 No results found for: CRP Lab Results Component Value Date RESULTCULT FINEGOLDIA MAGNA 07/08/2023 RESULTCULT STAPHYLOCOCCUS EPIDERMIDIS 07/08/2023 . Lab Results Component Value Date GLUCOSE 123 (H) 06/29/2023 . Lab Results Component Value Date CALCIUM 9.5 06/29/2023 Lab Results Component Value Date ALBUMIN 4.1 06/29/2023 SIUM 06/29/2023 CHLORIDE 06/29/2023 CO2 09 Lab Results Component Value Date BILITOTAL 0.9 06/29/2023 Lab Results Component Value Date BUN 16 06/29/2023 ALKPHOS 51 06/29/2023 BILITOTAL 0.9 06/29/2023 BILIDIRECT 0.1 10/22/2015 No orders to display IMAGING MRI FOOT LEFT WITHOUT CONTRAST Result Date: 06/29/2023 EXAM: MRI FOOT LEFT WITHOUT CONTRAST COMPARISON: Left foot x-rays from 06/14/2023 and left foot MRI from 05/10/2023. HISTORY: Infection in the fourth toe. Evaluate for osteomyelitis. TECHNIQUE: Multiplanar and multisequence imaging of the left foot was performed without contrast. FINDINGS: Motion artifact degrades evaluation on this study. There is mild soft tissue swelling involving the fourth toewith mild subcutaneous edema. Correlation for clinical findings of cellulitis would be helpful. There is no well-defined abscess. There is no MRI evidence of osteomyelitis. There is no low T1 signal or bony destruction in the phalanges of the fourth toe. No fracture or dislocation is evident. Thereis no metatarsal stress fracture. The tarsometatarsal alignment is anatomic. There is mild joint space narrowing and spurring involving the first metatarsophalangeal joint. Flexor and extensor tendons and the midfoot and forefoot appear intact with no focal tendon tear. There is no focal tenosynovitis. No muscle edema is identified. IMPRESSION: 1. There is mild subcutaneous edema and soft tissue swelling of the fourth toe suspicious for cellulitis. 2. No MRI evidence of osteomyelitis. 3. No focal abscess. 4. No acute or healing fracture in the foot. MRI SPINE LUMBAR WITHOUT CONTRAST Result Date: 06/20/2023 TITLE: MRI SPINE LUMBAR WITHOUT CONTRAST COMPARISON: 2021 lumbar spine MRI CLINICAL HISTORY: Low back pain radiating to the sacroiliac joints TECHNIQUE: Sagittal T1, sagittal T2 FSE, sagittal STIR, and axial T2 FSE. FINDINGS: Alignment is normal. There is no listhesis nor vertebral body height loss. The conus medullaris terminates at L1-2 and appears normal. The visualized adjacent soft suggest asmall right renal cyst. Prominent dorsal epidural fat L1-L5.. New metallic hardware traversing the left sacroiliac joint. T12-L1: Normal disc space. No stenosis L1-L2:Mild disc bulge. No significant stenosis. L2-3: Diffuse disc bulge. Left foraminal extension. Bilateral facet hypertrophy. Mild central canal and moderate left-sided foraminal narrowing L3-4: Mild disc bulge. Mild tear in left lateral annulus. Bilateral facet hypertrophy. Mild to moderate central canal and left-sided foraminal narrowing L4-5: Disc space narrowing lateral disc and osteophyte formation. Central disc protrusion. Facet hypertrophy and prominent dorsal epidural fat. This results in moderate to severe central canal and moderate foraminal narrowing L5-S1: Mild disc bulge. Bilateral facet hypertrophy. There is no significant central canal and [id number] left-sided foraminal narrowing IMPRESSION: MODERATE MULTILEVEL DEGENERATIVE CHANGES OF THE LUMBAR SPINE PROMINENT DORSAL EPIDURAL FAT L1-L5 L2-3: DIFFUSE DISC BULGE WITH LEFT FORAMINAL DISC PROTRUSION SMALL ANNULAR TEAR L3-4 MODERATE TO SEVERE MULTIFACTORIAL CENTRAL STENOSIS L4-5 FACET HYPERTROPHY LOWER 2 LUMBAR LEVELS XR FOOT LEFT 3 VIEWS Result Date: 06/14/2023 EXAM: XR FOOT LEFT 3 VIEWS HISTORY: left 4th toe infection COMPARISON: 05/02/2023. FINDINGS: 3 weightbearing views were submitted. Again the fourth toe appears swollen. Fracture, opaque foreign body or bony erosion not identified. Spurs present plantar and posterior calcaneus. IMPRESSION: 1. Again there is soft tissue swelling fourth toe, osseous abnormality not identified. 2. Calcaneal spurs. XR SPINE LUMBAR W BENDING Result Date: 06/07/2023 EXAM: XR SPINE LUMBAR W BENDING HISTORY: Spondylosis of lumbar region without myelopathy or radiculopathy COMPARISON: None. TECHNIQUE: 5 views with flexion and extension Findings/impression: Satisfactory alignment. Maintained vertebral body heights. Multilevel disc disease and facet arthropathy of L3-S1. Intact hardware. No acute fracture or subluxation. Left-sided sacroiliac fixation. Intact hardware. Diagnosis/Plan: There are no diagnoses linked to this encounter. Complex left 4th toe infection -MRI 05/11 and 06/29 does not show clear osteomyelitis but does have soft tissue swelling -culture from 4th toe 05/17 with Staphylococcus epidermidis for thigh overgrowth only likely a contaminant; 05/05 negative; 05/02 with finegoldia -history of MRSA nares 04/21 negative -Keflex x 2, cefixime, levaquin and doxycycline course without clearance per history -concern for a deep-seated infection that is not being resolved with short courses of oral therapy -s/p operative procedure 07/08 with S epi and finegoldia. -there is no inciting trauma or events preceding this infection that the patient recalls including no bite injuries, soil, pedicures or other inciting events to suggest unusual organisms but this remains in the differential -Operative 07/08 finding no pus and MRI negative for OM; did debride down to tendon; specimens for bacterial aerobic and anaerobic showed S. Epi and Finegoldia on 07/08 -suspect the staph epi is not a true cause of a deep-seated infection given lack of hardware -S/p Augmentin 875 mg twice daily for the finegoldia, 07/13-07/24 -plan at least a three-week treatment course but possibly longer -fungal and afb cultures 07/29, NGTD -Recurrent I&D for abscess on 07/21, cx negative -MRI: Worsening subcutaneous edema/cellulitis over the left fourth digit with new focal collection/abscess laterally. No osteomyelitis. -despite Augmentin and Zyvox as well as prior antibiotics including doxycycline, Levaquin and cephalosporins she continues to have a purulent abscess of her toe. -uric acid is normal and no history of gout per her report; consider noninfectious causes but none clear - she does have history of cancer but this is remote would be an odd presentation -plan to discuss with 2nd infectious disease provider, recommended PCR to be done -TB and Fungitell of blood negative -Repeat cultures purulence 07/29 for AFB and fungal cultures, NGTD -patient had I&D on 08/11 with culture negative by Podiatry but no PCR; path with hyperkeratosis with possible trauma -s/p PICC and ertapenem since 07/29-08/29 and line removed -Watch, if ID again then will need further studies including repeat imaging and pcr and deep pathology -Toe plantar area open status post silver nitrate placed on 09/20 by Podiatry -all on follow-up exam 11/02/2023, toe appears to be healing well and there is no further wound. There is minimal tenderness but no erythema redness or signs of infection. Skin is slightly discoloredon toe. Overall this in total is improving without clear infection. Total understanding of the etiology of this is unclear but I remain concerned she had a foreign body potentially in the toe although there is no history of such; there was a piece of material that came out and since then it has healed. -at this time we will continue to observe without specific further antibiotics. Patient has come back to clinic as needed and she has been instructed to call with any signs or symptoms of infection including but not limited to fever, warmth, increasing pain, redness, warmth. Hx of yeast ID -S/p tx, resolved Hx of DM +-patient denies a history of diabetes but this is in her record and states that she is not currently on any management. Previous BMP shows mildly elevated glucose. -a1c 5.5, 5.8 - normal range -blood sugar on recent labs 112 Healthcare maintenance -history of prior flu shots, s/p flu shot this fall and s/p 08/25/23 given -history of pneumococcal conjugate and polysaccharide vaccines -history of tetanus vaccine 2018 -recommend keeping up-to-date on all recommended vaccines Left knee degenerative disease -operative management by Orthopedics is on hold pending resolution of toe infection, would recommend waiting at least 2 more months before any surgery is performed that involves hardware placement Return to clinic prn, including with any concerns for new infection and this was discussed in detail 14 min of care Please note Portions of this note utilized [employer] dictation software, please excuse any typographical or grammatical errors. [facility] History of Present illness Narrative* Fernie Paredes, DO - 10/31/2023 10:00 AM EST Subjective History of Present Illness HISTORY OF PRESENT ILLNESS: 63 y.o. adult presents with complaints of: Encounter Diagnoses Name Primary? Type 2 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 disease, without long-term current use of insulin Yes B12 deficiency Hyperlipidemia LDL goal <70 Hypertriglyceridemia Hypoproteinemia Hypomagnesemia Idiopathic chronic gout without tophus, unspecified site Anemia, unspecified type Stage 3a chronic kidney disease Chronic gastritis without bleeding, unspecified gastritis type Duodenal diverticulum Esophageal stenosis Esophagitis, Clyo grade A Folate deficiency Fatty liver Gastroesophageal reflux disease without esophagitis Hepatomegaly Vitamin D deficiency Bilateral carotid artery stenosis-30% Right, 60% Left Central retinal artery occlusion of left eye Bradycardia Cerebrovascular accident (CVA), unspecified mechanism Hypertensive heart disease without heart failure Essential hypertension Internal and external hemorrhoids without complication Atherosclerosis of abdominal aorta Ischemic stroke Paroxysmal atrial fibrillation PAC (premature atrial contraction) PVC's (premature ventricular contractions) Chronic sinusitis, unspecified location Chronic obstructive pulmonary disease, unspecified COPD type Hiatal hernia Moderate persistent asthma without complication Pulmonary emphysema, unspecified emphysema type PERCY on CPAP-Off BiPAP due to intolerance Non-seasonal allergic rhinitis, unspecified trigger 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 Unspecified amblyopia, right eye Regular astigmatism of left eye Pinguecula of both eyes PCO (posterior capsular opacification), left Lacunar infarction Hypermetropia of left eye Combined forms of age-related cataract, bilateral Chronic midline low back pain without sciatica Allergic conjunctivitis of both eyes Blepharitis of upper eyelids of both eyes, unspecified type Spondylosis of lumbar region without myelopathy or radiculopathy Spinal stenosis of lumbar region without neurogenic claudication Spondylosis of cervical region without myelopathy or radiculopathy Primary osteoarthritis of both knees Uterine leiomyoma, unspecified location Primary osteoarthritis of both hips-Mild Other idiopathic scoliosis, lumbar region Osteopenia determined by x-ray HNP (herniated nucleus pulposus), lumbar-Multi level Open wound of fourth toe of left foot, sequela Renal cyst, right Mixed stress and urge incontinence Left renal stone Seborrheic keratosis, inflamed-Left thigh-S/P Excision CLL (chronic lymphocytic leukemia) Macrocytosis History of [id number] 09-30-2020 Vision loss of left eye Pseudophakia of both eyes Presbyopia Obesity (BMI 30.0-34.9) Myopia of right eye Low HDL (under 40) Irregular astigmatism of right eye Hyponatremia Insomnia, unspecified type Fatty food intolerance Fatigue, unspecified type Elevated LFTs Chronic anticoagulation Bilateral dry eyes ASCUS of cervix with negative high risk HPV Anxiety and depression S/P unilateral salpingo-oophorectomy S/P total knee arthroplasty, right History of ETOH abuse History of cataract extraction, unspecified laterality Former smoker-Quit 2011 History of anemia Family history of Alzheimer's disease Type 2 DM, CKD-3a, Anemia, A. Fib and CLL. Recent Glucose 112, NA++133, and GFR 69. All other labs WNL. Non Smoker. No Fam Hx DM. +Left visual loss. +Mild LBP with prolonged standing. No radiation, numbness or weakness. +Open wound left 4th toe and which is improving. Weight up. No C.P., SOB, Edema, Palpitations, Dizziness, Fatigue, GERD, Melena, Hematochezia, Dysuria, or Frequency. All others negative on ROS. Objective Review of Systems Constitutional: Positive for unexpected weight change (weight up). Negative for fatigue. Eyes: Positive for visual disturbance (left visual loss). Respiratory: Negative for shortness of breath. Cardiovascular: Negative for chest pain, palpitations and leg swelling. Gastrointestinal: Negative for abdominal pain and blood in stool. No GERD Genitourinary: Negative for dysuria and frequency. Musculoskeletal: Positive for back pain (LBP with prolonged standing). Negative for arthralgias. Skin: Positive for wound (left 4th toe). Neurological: Negative for dizziness, weakness and numbness. Psychiatric/Behavioral: Negative for dysphoric mood and sleep disturbance. The patient is not nervous/anxious. All other systems reviewed and are negative. Vitals: Blood pressure 128/68, pulse 68, temperature 97.2 F (36.2 C), resp. rate 14, height 1.65 m (5' 4.96), weight 97.5 kg (215 lb), SpO2 98 %, not currently . Physical Exam Vitals and nursing note reviewed. Constitutional: General: Sarah Galeano is not in acute distress. Appearance: Normal appearance. Sarah Galeano is obese. Sarah Galeano is not ill-appearing. HENT: Head: Normocephalic and atraumatic. Nose: No congestion. Eyes: General: No scleral icterus. Right eye: No discharge. Left eye: No discharge. Extraocular Movements: Extraocular movements intact. Conjunctiva/sclera: Conjunctivae normal. Pupils: Pupils are equal, round, and reactive to light. Pulmonary: Effort: Pulmonary effort is normal. Breath sounds: No wheezing or rhonchi. Abdominal: General: Abdomen is flat. Bowel sounds are normal. There is no distension. Tenderness: There is no abdominal tenderness. Musculoskeletal: General: Normal range of motion. Cervical back: Normal range of motion. No rigidity. No muscular tenderness. Right lower leg: No edema. Left lower leg: No edema. Skin: Coloration: Skin is not jaundiced. Findings: No bruising, erythema or rash. Neurological: General: No focal deficit present. Mental Status: Sarah Galeano is alert and oriented to person, place, and time. Mental status is atbaseline. Psychiatric: Mood and Affect: Mood normal. Behavior: Behavior normal. Thought Content: Thought content normal. Judgment: Judgment normal. Neurological Exam Mental Status Alert. Oriented to person, place, and time. Cranial Nerves CN III, IV, : Extraocular movements intact bilaterally. Pupils equal round and reactive to light bilaterally. Assessment and Plan Refills given all meds requested. May get watchman soon after sees Dr. Kandice Christie on 11-08-23 at [facility]. COVID-19, Shingrix and Arexvy vaccines declined. Risks discussed. Alaina 11-02-[address] Shipley. [place] 11-08-[address] Kandice Christie. [place]a with Dr. Philip at [facility] in [place] and 6 months. Alaina 01-06-[address] Stephens. Check fasting, well hydrated CBC, CMP, A1C, Lipid, TSH, UA, Vit D, Mg, PTH, Fe, TIBC, Ferritin, B12, Folate, UA CR and UA for micro-albumin on apprxo 01-16-24 at [facility] lab. Alaina 01-23-24, sooner prn. [place] 3-D Mammogram in . [place] annual pelvic and breast exam in with 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 NP. [place] 01-24-[address] Calderon. [place]a with [facility] with [facility]. [place]a 08-06-[address] Ciro Lyles. [place]a 09-19-[address] Naty Bhakta, Oncology at [facility]. Alaina 10-31-[address] Davison. [place] PAP in 2024 with 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 NP and q 2 years. [place] DEXA in . [place] Colon in 2027. Total time spent 36 minutes, excluding tests and procedures. Diet and lifestyle counseling was given, and care coordinated. OARRS report was received and assessed, and is consistent with the medications prescribed.Thank you for choosing Dr. Fernie Paredes s [facility] for your [facility]. The patients' entire past medical, surgical,family, social history, allergies, medications, recent labs, recent imaging and [employer] commerce consultant letters were reviewed and updated. ASSESSMENT & PLAN: Encounter Diagnoses Name Primary? Type 2 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 disease, without long-term current use of insulin Yes B12 deficiency Hyperlipidemia LDL goal <70 Hypertriglyceridemia Hypoproteinemia Hypomagnesemia Idiopathic chronic gout without tophus, unspecified site Anemia, unspecified type Stage 3a chronic kidney disease Chronic gastritis without bleeding, unspecified gastritis type Duodenal diverticulum Esophageal stenosis Esophagitis, Clyo grade A Folate deficiency Fatty liver Gastroesophageal reflux disease without esophagitis Hepatomegaly Vitamin D deficiency Bilateral carotid artery stenosis-30% Right, 60% Left Central retinal artery occlusion of left eye Bradycardia Cerebrovascular accident (CVA), unspecified mechanism Hypertensive heart disease without heart failure Essential hypertension Internal and external hemorrhoids without complication Atherosclerosis of abdominal aorta Ischemic stroke Paroxysmal atrial fibrillation PAC (premature atrial contraction) PVC's (premature ventricular contractions) Chronic sinusitis, unspecified location Chronic obstructive pulmonary disease, unspecified COPD type Hiatal hernia Moderate persistent asthma without complication Pulmonary emphysema, unspecified emphysema type PERCY on CPAP-Off BiPAP due to intolerance Non-seasonal allergic rhinitis, unspecified trigger 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 Unspecified amblyopia, right eye Regular astigmatism of left eye Pinguecula of both eyes PCO (posterior capsular opacification), left Lacunar infarction Hypermetropia of left eye Combined forms of age-related cataract, bilateral Chronic midline low back pain without sciatica Allergic conjunctivitis of both eyes Blepharitis of upper eyelids of both eyes, unspecified type Spondylosis of lumbar region without myelopathy or radiculopathy Spinal stenosis of lumbar region without neurogenic claudication Spondylosis of cervical region without myelopathy or radiculopathy Primary osteoarthritis of both knees Uterine leiomyoma, unspecified location Primary osteoarthritis of both hips-Mild Other idiopathic scoliosis, lumbar region Osteopenia determined by x-ray HNP (herniated nucleus pulposus), lumbar-Multi level Open wound of fourth toe of left foot, sequela Renal cyst, right Mixed stress and urge incontinence Left renal stone Seborrheic keratosis, inflamed-Left thigh-S/P Excision CLL (chronic lymphocytic leukemia) Macrocytosis History of [id number] 09-30-2020 Vision loss of left eye Pseudophakia of both eyes Presbyopia Obesity (BMI 30.0-34.9) Myopia of right eye Low HDL (under 40) Irregular astigmatism of right eye Hyponatremia Insomnia, unspecified type Fatty food intolerance Fatigue, unspecified type Elevated LFTs Chronic anticoagulation Bilateral dry eyes ASCUS of cervix with negative high risk HPV Anxiety and depression S/P unilateral salpingo-oophorectomy S/P total knee arthroplasty, right History of ETOH abuse History of cataract extraction, unspecified laterality Former smoker-Quit 2011 History of anemia Family history of Alzheimer's disease Orders Placed This Encounter Procedures CBC, EDIF, PLATELET Copy to Dr. Fernando Davison. Dr. Wm. Calderon, and Naty Bhakta, Hematology at [facility] Standing Status: Future Standing Expiration Date: 10/31/2024 COMPREHENSIVE METABOLIC PANEL Standing Status: Future Standing Expiration Date: 10/31/2024 HEMOGLOBIN A1C Standing Status: Future Standing Expiration Date: 10/31/2024 LIPID PANEL W CALCULATED LDL Standing Status: Future Standing Expiration Date: 10/31/2024 TSH Standing Status: Future Standing Expiration Date: 10/31/2024 URIC ACID Standing Status: Future Standing Expiration Date: 10/31/2024 VITAMIN D (25-HYDROXY,TOTAL) Standing Status: Future Standing Expiration Date: 10/31/2024 MAGNESIUM Standing Status: Future Standing Expiration Date: 10/31/2024 PTH INTACT Standing Status: Future Standing Expiration Date: 10/31/2024 FERRITIN Standing Status: Future Standing Expiration Date: 10/30/2024 IRON/IRON BINDING/TRANSFERRIN Standing Status: Future Standing Expiration Date: 10/31/2024 FOLATE, SERUM Standing Status: Future Standing Expiration Date: 10/31/2024 VITAMIN B12 Standing Status: Future Standing Expiration Date: 10/31/2024 Medications Discontinued During This Encounter Medication Reason buPROPion (Wellbutrin XL) 300 MG tablet XL Reorder cyanocobalamin 1000 MCG tablet Reorder Folic acid 1 MG tablet Reorder Pantoprazole (Protonix) [address] tablet DR Reorder traZODone 100 MG tablet Reorder magnesium oxide 400 (240 Mg) MG Reorder Current Outpatient Medications Medication Sig Dispense Refill buPROPion (Wellbutrin XL) 300 MG tablet XL Take 1 tablet by mouth every morning before breakfast. 90 tablet 0 cyanocobalamin 1000 MCG tablet Take 1 tablet by mouth daily. Chew 1 tab q daily 90 tablet 0 Folic acid 1 MG tablet Take 1 tablet by mouth daily. 90 tablet 0 magnesium oxide 400 (240 Mg) MG Take 1 tablet by mouth daily. 90 tablet 0 Pantoprazole (Protonix) [address] tablet DR Take 1 tablet by mouth 2 times daily (take before meals). 180 tablet 0 traZODone 100 MG tablet Take 1 tablet by mouth at bedtime. 90 tablet 0 Albuterol (Ventolin HFA) 108 (90 Base) MCG/ACT Aero Soln inhaler Inhale 2 puffs every 6 hours as needed for Wheezing. 18 g 0 Allopurinol 100 MG tablet Take 1 tablet by mouth daily. 90 tablet 3 apixaban 5 MG tablet Take 1 tablet by mouth every 12 hours. 180 tablet 3 carveDILOL (Coreg) 12.5 MG tablet Take 1 tablet by mouth 2 times daily with meals. Given by Dr. Calderon 180 tablet 3 Cetirizine 10 MG tablet Take 1 tablet by mouth daily as needed for Allergies. OTC Clindamycin Phos-Benzoyl Perox 1.2-3.75 % Gel Apply 1 Application topically daily as needed. Given by Dermatology Dr. Dejesus Clopidogrel 75 MG tablet Take 1 tablet by mouth daily. 90 tablet 3 Evolocumab (Repatha SureClick) 140 MG/ML Solution Auto-injector injection Inject 1 mL under the skin every 14 days. 2 mL 11 fenofibrate 160 MG tablet Take 1 tablet by mouth daily. 90 tablet 3 Lisinopril 5 MG tablet Take 1 tablet by mouth daily. 90 tablet 3 triamterene-hydrochlorothiazide (Dyazide) 37.5-25 MG per capsule Take 1 capsule by mouth daily. Cancel previous refills 90 capsule 3 No current facility-administered medications for this visit. Counseling given: No Follow up appointment(s) have been discussed with the patient. The patient is given an After Visit Summary sheet that lists all of their medications with directions, their allergies, orders placed during this encounter, immunization dates, and follow- up instructions. Fernie Paredes DO [address] [address] This note is electronically signed in the electronic medical record. documented in this [facility] [place]01-08-2024 Instructions* Patient Instructions* Fernie Paredes DO - 10/31/2023 10:00 AM EST Do fasting, well hydrated labs on approx 01-16-24 documented in this [facility] [place]01-08-2024 Miscellaneous Notes* Addendum Note - Fernie Paredes DO - 10/31/2023 10:00 AM ESTAddended by: FERNIE PAREDES on: 10/31/2023 10:43 AM Modules accepted: Level of Service documented in this [facility] [place]01-08-2024 Note* Addendum Note - Fernie Paredes DO - 10/31/2023 10:00 AM ESTAddended by: FERNIE PAREDES on: 10/31/2023 10:43 AM Modules accepted: Level of Service [facility]01-08-2024 Evaluation note* Diagnosis Type 2 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 disease, without long-term current use of insulin- Primary B12 deficiency Other B-complex deficiencies Hyperlipidemia LDL goal <70 Other and unspecified hyperlipidemia Hypertriglyceridemia Pure hyperglyceridemia Hypoproteinemia Other disorders of plasma protein metabolism Hypomagnesemia Disorders of magnesium metabolism Idiopathic chronic gout without tophus, unspecified site Anemia, unspecified type Stage 3a chronic kidney disease Chronic gastritis without bleeding, unspecified gastritis type Duodenal diverticulum Diverticulosis of small intestine (without mention of hemorrhage) Esophageal stenosis Stricture and stenosis of esophagus Esophagitis, Clyo grade A Folate deficiency Other B-complex deficiencies Fatty liver Other chronic nonalcoholic liver disease Gastroesophageal reflux disease without esophagitis Esophageal reflux Hepatomegaly Vitamin D deficiency Unspecified vitamin D deficiency Bilateral carotid artery stenosis-30% Right, 60% Left Occlusion and stenosis of multiple and bilateral precerebral arteries without mention of cerebral infarction Central retinal artery occlusion of left eye Central artery occlusion of retina Bradycardia Other specified cardiac dysrhythmias Cerebrovascular accident (CVA), unspecified mechanism Hypertensive heart disease without heart failure Unspecified hypertensive heart disease without heart failure Essential hypertension Unspecified essential hypertension Internal and external hemorrhoids without complication Internal hemorrhoids without mention of complication Atherosclerosis of abdominal aorta Atherosclerosis of aorta Ischemic stroke Paroxysmal atrial fibrillation Atrial fibrillation PAC (premature atrial contraction) Supraventricular premature beats PVC's (premature ventricular contractions) Other premature beats Chronic sinusitis, unspecified location Chronic obstructive pulmonary disease, unspecified COPD type Hiatal hernia Diaphragmatic hernia without mention of obstruction or gangrene Moderate persistent asthma without complication Unspecified asthma Pulmonary emphysema, unspecified emphysema type PERCY on CPAP-Off BiPAP due to intolerance Obstructive sleep apnea (adult) (pediatric) Non-seasonal allergic rhinitis, unspecified trigger 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 Profound impairment, one eye, Impairment level not further specified Unspecified amblyopia, right eye Regular astigmatism of left eye Regular astigmatism Pinguecula of both eyes Pinguecula PCO (posterior capsular opacification), left After-cataract, unspecified Lacunar infarction Unspecified cerebral artery occlusion with cerebral infarction Hypermetropia of left eye Hypermetropia Combined forms of age-related cataract, bilateral Chronic midline low back pain without sciatica Allergic conjunctivitis of both eyes Other chronic allergic conjunctivitis Blepharitis of upper eyelids of both eyes, unspecified type Spondylosis of lumbar region without myelopathy or radiculopathy Lumbosacral spondylosis without myelopathy Spinal stenosis of lumbar region without neurogenic claudication Spinal stenosis, lumbar region, without neurogenic claudication Spondylosis of cervical region without myelopathy or radiculopathy Cervical spondylosis without myelopathy Primary osteoarthritis of both knees Primary localized osteoarthrosis, lower leg Uterine leiomyoma, unspecified location Primary osteoarthritis of both hips-Mild Primary localized osteoarthrosis, pelvic region and thigh Other idiopathic scoliosis, lumbar region Osteopenia determined by x-ray HNP (herniated nucleus pulposus), lumbar-Multi level Displacement of lumbar intervertebral disc without myelopathy Open wound of fourth toe of left foot, sequela Renal cyst, right Unspecified congenital cystic kidney disease Mixed stress and urge incontinence Left renal stone Seborrheic keratosis, inflamed-Left thigh-S/P Excision Inflamed seborrheic keratosis CLL (chronic lymphocytic leukemia) Chronic lymphoid leukemia, without mention of having achieved remission Macrocytosis Other specified diseases of blood and blood-forming organs History of [id number] 09-30-2020 Vision loss of left eye Unqualified visual loss, one eye Pseudophakia of both eyes Lens replaced by other means Presbyopia Obesity (BMI 30.0-34.9) Obesity, unspecified Myopia of right eye Myopia Low HDL (under 40) Lipoprotein deficiencies Irregular astigmatism of right eye Irregular astigmatism Hyponatremia Hyposmolality and/or hyponatremia Insomnia, unspecified type Fatty food intolerance Other specified intestinal malabsorption Fatigue, unspecified type Elevated LFTs Other abnormal blood chemistry Chronic anticoagulation Encounter for long-term (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 of anticoagulants Bilateral dry eyes Tear film insufficiency, unspecified ASCUS of cervix with negative high risk HPV Anxiety and depression Dysthymic disorder S/P unilateral salpingo-oophorectomy Acquired absence of organ, genital organs S/P total knee arthroplasty, right History of ETOH abuse Nondependent alcohol abuse, in remission History of cataract extraction, unspecified laterality Former smoker-Quit 2011 Personal history of tobacco use, presenting hazards to health History of anemia Personal history of diseases of blood and blood-forming organs Family history of Alzheimer's disease Family history of other condition documented in this encounter [facility]01-03-2024 History of Present illness Narrative* Fernando Davison MD - 10/26/2023 2:00 PM EST DAILY PROGRESS NOTE Admit Date: (Not on file) Date of Evaluation: :17 PM [facility] @JORGE@ IMPRESSION AND PLAN: 63 y/o female with history of CKD III, CLL, depression, and CVA is here for CKD care. 1) CKD II Cr 1.05 -> 0.81 -> 0.88 Urine pr/cr 0.1 Urine Na 98 Renal US disclosed no evidence of an intrarenal mass or hydronephrosis. Multiple echogenic foci in the left kidney are typical of calculi. The urinary bladder appears unremarkable. Will get UA Will get renal panel. 2) HTN SBP 120s Continue with lisinopril and Hydrochlorothiazide. 3) Gout Uric acid 8.4 -> 5.4 Continue with allopurinol 4) Transaminitis ALT 37 -> 25 / AST 41 -> 27 CT abd disclosed hepatic steatosis with mild enlargement of the left lobe and the caudate lobe. Small right simple renal cyst with a proteinaceous/hemorrhagic cyst in the midpole right kidney. Small faint enhancing focus in the uterine body could represent a small fibroid. No suspicious adnexal mass or pelvic free fluid. SUBJECTIVE: Patient seen and examined. Chart, medications, labs reviewed. Appointment on 10/22/2023 Component Date Value Ref Range Status Albumin 10/22/2023 3.9 3.5 - 5.0 G/DL Final BILIRUBIN, TOTAL 10/22/2023 0.4 0.2 - 1.3 MG/DL Final ALKALINE PHOSPHATASE 10/22/2023 42 38 - 126 IU/L Final AST 10/22/2023 27 14 - 36 IU/L Final BILIRUBIN, DIRECT 10/22/2023 0.1 0.0 - 0.4 MG/DL Final PROTEIN, TOTAL 10/22/2023 6.4 6.3 - 8.2 GM/DL Final ALT 10/22/2023 25 <35 IU/L Final Glucose 10/22/2023 112 (H) 70 - 100 MG/DL Final Comment: NORMAL <100 mg/dL PREDIABETES 101-126 mg/dL DIABETES 126 mg/dL or higher BUN 10/22/2023 19 7 - 20 MG/DL Final CREATININE SERUM 10/22/2023 0.88 0.70 - 1.20 MG/DL Final SODIUM 10/22/2023 133 (L) 137 - 145 MMOL/L Final POTASSIUM 10/22/2023 4.5 3.5 - 5.1 MMOL/L Final CHLORIDE 10/22/2023 101 98 - 107 MMOL/L Final Please note: Triglyceride levels of 600mg/dL or higher may positively bias chloride results by approximately 2.1 mmol CARBON DIOXIDE (CO2) 10/22/2023 29 22 - 30 MMOL/L Final Albumin 10/22/2023 3.9 3.5 - 5.0 G/dl Final CALCIUM 10/22/2023 9.2 8.4 - 10.2 MG/DL Final PHOSPHORUS 10/22/2023 3.0 2.5 - 4.5 MG/DL Final ESTIMATED GFR, NON AMER 10/22/2023 69 ml/min/1.73sq.m Final ESTIMATED GFR, 10/22/2023 83 ml/min/1.73sq.m Final GFR COMMENT 10/22/2023 Average GFR for 60-69 years old = 85. Final Comment: Chronic Kidney disease, GFR = <60. Kidney failure, GFR = <15. The GFR estimate is not adjusted for extreme body surface area or acute process, nor has it been validated for women or ethnic groups other than and . MAGNESIUM 10/22/2023 1.8 1.6 - 2.3 MG/DL Final WBC (WHITE BLOOD COUNT) 10/22/2023 9.4 3.6 - 11.0 10*3/uL Final RBC 10/22/2023 3.99 (L) 4.0 - 5.4 10*6/uL Final HEMOGLOBIN (HGB) 10/22/2023 13.1 12.0 - 16.0 G/DL Final HEMATOCRIT (HCT) 10/22/2023 39.5 36.0 - 48.0 % Final MEAN CELL VOLUME 10/22/2023 99.0 80.0 - 100.0 FL Final Mean Cell HGB 10/22/2023 32.8 26.0 - 35.0 PG Final MEAN CELL HGB CONCENTRATION 10/22/2023 33.2 27.0 - 37.0 G/DL Final RBC DISTRIBUTION 10/22/2023 13.8 11.5 - 14.5 % Final PLATELET COUNT 10/22/2023 189 130 - 400 10*3/uL Final MEAN PLATELET VOLUME 10/22/2023 8.4 7.4 - 11.0 FL Final DIFFERENTIAL TYPE 10/22/2023 AUTO DIFF % Final NEUTROPHILS 10/22/2023 65.4 37.0 - 75.0 % Final LYMPHOCYTE 10/22/2023 26.0 20.0 - 55.0 % Final MONOCYTE % 10/22/2023 7.9 0.0 - 10.0 % Final EOSINOPHIL % 10/22/2023 0.2 0.0 - 11.0 % Final BASOPHIL % 10/22/2023 0.5 0.0 - 2.0 % Final Absolute Neutrophil Count 10/22/2023 6.2 1.4 - 6.5 10*3/uL Final LYMPHOCYTES, ABSOLUTE 10/22/2023 2.4 1.2 - 3.4 10*3/uL Final MONOCYTES, ABSOLUTE 10/22/2023 0.7 0.0 - 0.7 10*3/uL Final ABSOLUTE EOSINOPHIL COUNT 10/22/2023 0.0 0.0 - 0.7 10*3/uL Final ABSOLUTE BASOPHIL COUNT 10/22/2023 0.0 0.0 - 0.2 10*3/uL Final PROTEIN MG/DL-URINE 10/22/2023 7 0 - 12 MG/DL Final CREATININE, MG/DL, URINE 10/22/2023 61.8 MG/DL Final NO NORMAL VALUES ESTABLISHED FOR RANDOM SPECIMENS PROTEIN/CREAT RATIO, URINE 10/22/2023 0.1 Final Comment: REFERENCE RANGES <0.2 NORMAL 0.2-3.5 NON-NEPHROTIC >3.5 NEPHROTIC COLOR, URINE 10/22/2023 YELLOW YELLOW Final APPEARANCE, URINE 10/22/2023 CLEAR CLEAR Final Specific [place], Urine 10/22/2023 1.015 1.010 - 1.025 Final PH URINE 10/22/2023 8.5 (H) 5.0 - 7.0 Final Urine Protein 10/22/2023 NEGATIVE NEGATIVE mg/dl Final GLUCOSE, URINE 10/22/2023 NEGATIVE NEGATIVE mg/dl Final KETONES, URINE 10/22/2023 NEGATIVE NEGATIVE mg/dl Final BILIRUBIN, URINE 10/22/2023 NEGATIVE NEGATIVE Final BLOOD, URINE DIPSTICK 10/22/2023 NEGATIVE NEGATIVE Final NITRITES, URINE 10/22/2023 NEGATIVE NEGATIVE Final UROBILINOGEN, URINE 10/22/2023 0.2 0.2 - 1.0 E.U./dL Final LEUKOCYTE ESTERASE, URINE 10/22/2023 NEGATIVE NEGATIVE Final SODIUM, URINE RANDOM 10/22/2023 98 (H) 30 - 90 MMOL/L Final LABS Labs-ABGs @ABGROUNDS@ Labs-CBC @CBCBRIEFROUNDS@ Labs-Chem 7([facility]) @[facility]@ Labs-Coa WBC (WHITE BLOOD COUNT) Date Value Ref Range Status 10/22/2023 9.4 3.6 - 11.0 10*3/uL Final 08/04/2023 7.0 3.6 - 11.0 10*3/uL Final WBC Count Date Value Ref Range Status 09/21/2023 7.72 3.99 - 11.19 K/uL Final HEMOGLOBIN (HGB) Date Value Ref Range Status 10/22/2023 13.1 12.0 - 16.0 G/DL Final 08/04/2023 12.4 12.0 - 16.0 G/DL Final Hemoglobin Date Value Ref Range Status 09/21/2023 12.8 11.4 - 15.2 g/dL Final HEMATOCRIT (HCT) Date Value Ref Range Status 10/22/2023 39.5 36.0 - 48.0 % Final 08/04/2023 36.7 36.0 - 48.0 % Final Hematocrit Date Value Ref Range Status 09/21/2023 38.0 34.9 - 44.3 % Final Platelet Count Date Value Ref Range Status 09/21/2023 220 150 - 393 K/uL Final PLATELET COUNT Date Value Ref Range Status 10/22/2023 189 130 - 400 10*3/uL Final 08/04/2023 143 130 - 400 10*3/uL Final SODIUM Date Value Ref Range Status 10/22/2023 133 (L) 137 - 145 MMOL/L Final 08/04/2023 137 137 - 145 MMOL/L Final Sodium Date Value Ref Range Status 09/21/2023 133 (L) 135 - 145 mmol/L Final CHLORIDE Date Value Ref Range Status 10/22/2023 101 98 - 107 MMOL/L Final Comment: Please note: Triglyceride levels of 600mg/dL or higher may positively bias chloride results by approximately 2.1 mmol 08/04/2023 103 98 - 107 MMOL/L Final Comment: Please note: Triglyceride levels of 600mg/dL or higher may positively bias chloride results by approximately 2.1 mmol Chloride Date Value Ref Range Status 09/21/2023 96 (L) 98 - 108 mmol/L Final BUN Date Value Ref Range Status 10/22/2023 19 7 - 20 MG/DL Final 09/21/2023 20 7 - 25 mg/dL Final 08/04/2023 18 7 - 20 MG/DL Final POTASSIUM Date Value Ref Range Status 10/22/2023 4.5 3.5 - 5.1 MMOL/L Final 08/04/2023 4.0 3.5 - 5.1 MMOL/L Final Potassium Date Value Ref Range Status 09/21/2023 4.7 3.5 - 5.0 mmol/L Final Creatinine Date Value Ref Range Status 09/21/2023 1.03 0.50 - 1.20 mg/dL Final CREATININE SERUM Date Value Ref Range Status 10/22/2023 0.88 0.70 - 1.20 MG/DL Final 08/04/2023 0.80 0.7 - 1.2 MG/DL Final Glucose Date Value Ref Range Status 10/22/2023 112 (H) 70 - 100 MG/DL Final Comment: NORMAL <100 mg/dL PREDIABETES 101-126 mg/dL DIABETES 126 mg/dL or higher 09/21/2023 122 (H) 70 - 99 mg/dL Final 08/04/2023 111 (H) 70 - 100 MG/DL Final Comment: NORMAL <100 mg/dL PREDIABETES 101-126 mg/dL DIABETES 126 mg/dL or higher PT Date Value Ref Range Status 04/21/2023 14.0 11.8 - 14.4 SEC Final 08/09/2022 13.4 11.8 - 14.4 SEC Final PT/INR (POC Device) Date Value Ref Range Status 09/13/2019 1.0 0.9 - 1.1 Final PTT Date Value Ref Range Status 08/09/2022 29.5 22.4 - 34.7 SEC Final Comment: CARDIAC AND PE/DVT THERAPUTIC RANGE 69-97 SEC VASCULAR/THREATENED LIMB THERAPUTIC RANGE 80-112 SEC Testing performed at [place], [place] [address] PROTEIN, TOTAL Date Value Ref Range Status 10/22/2023 6.4 6.3 - 8.2 GM/DL Final 08/04/2023 7.0 6.3 - 8.2 GM/DL Final Total Protein Date Value Ref Range Status 09/21/2023 7.0 6.4 - 8.3 g/dL Final Albumin Date Value Ref Range Status 10/22/2023 3.9 3.5 - 5.0 G/DL Final 10/22/2023 3.9 3.5 - 5.0 G/dl Final 09/21/2023 4.1 3.5 - 5.0 g/dL Final AST Date Value Ref Range Status 10/22/2023 27 14 - 36 IU/L Final 09/21/2023 23 10 - 39 U/L Final 08/04/2023 33 14 - 36 IU/L Final ALT Date Value Ref Range Status 10/22/2023 25 <35 IU/L Final 09/21/2023 17 9 - 48 U/L Final 08/04/2023 27 <35 IU/L Final BILIRUBIN, TOTAL Date Value Ref Range Status 10/22/2023 0.4 0.2 - 1.3 MG/DL Final CALCIUM Date Value Ref Range Status 10/22/2023 9.2 8.4 - 10.2 MG/DL Final 08/04/2023 9.4 8.4 - 10.2 MG/DL Final Calcium Date Value Ref Range Status 09/21/2023 10.0 8.6 - 10.5 mg/dL Final PHOSPHORUS Date Value Ref Range Status 10/22/2023 3.0 2.5 - 4.5 MG/DL Final 04/21/2023 3.7 2.5 - 4.5 MG/DL Final MAGNESIUM Date Value Ref Range Status 10/22/2023 1.8 1.6 - 2.3 MG/DL Final 07/29/2023 1.7 1.6 - 2.3 MG/DL Final Comment: Testing performed at [place], [place] [address] 04/21/2023 1.3 (L) 1.6 - 2.3 MG/DL Final Lab Results Component Value Date CREATURINE 61.8 10/22/2023 CREATSERUM 0.88 10/22/2023 BUN 19 10/22/2023 SODIUM 133 (L) 10/22/2023 POTASSIUM 4.5 10/22/2023 CHLORIDE 101 10/22/2023 CO2 29 10/22/2023 ROS: Constitution: No fever, no chill HEENT: No headache, no sinus issues CV: No chest pain, no palpitation Lung: No cough, No SOB Abd: No diarrhea, no constipation Neuro: No seizure, no loss of consciousness Heme: No bleeding, no bruise PHYSICAL EXAM: Wt Readings from Last 3 Encounters: 10/26/23 95.8 kg (211 lb 4.8 oz) 10/06/23 95.7 kg (211 lb) 09/28/23 96 kg (211 lb 9.6 oz) Temp Readings from Last 3 Encounters: 09/28/23 96.9 F (36.1 C) (Temporal) 09/21/23 98.4 F (36.9 C) (Oral) 09/08/23 97.1 F (36.2 C) (Temporal) BP Readings from Last 3 Encounters: 10/26/23 128/72 10/19/23 133/81 10/06/23 (!) 164/100 Pulse Readings from Last 3 Encounters: 10/26/23 81 10/19/23 61 10/06/23 65 Gen: NAD, lying in bed, conversant HEENT: Atraumatic, PERRLA, moist membrane CV: RRR, nl S1 and S2, no m/g/r Lung: CTAB, no wheezing, no crackle Abd: +BS, nontender, no distended Ext: No rash, no clubbing, no cyanosis. No edema. Neuro: CNII-XII grossly intact, 5/5 strength, normal tone Skin: Warm and dry documented in this [facility] [place]01-03-2024 Miscellaneous Notes* Addendum Note - Fernando Davison MD - 10/26/2023 2:00 PM ESTAddended by: FERNANDO DAVISON on: 10/26/2023 02:24 PM Modules accepted: Orders documented in this [facility]01-03-2024 Note* Addendum Note - Fernando Davison MD - 10/26/2023 2:00 PM ESTAddended by: FERNANDO DAVISON on: 10/26/2023 02:24 PM Modules accepted: Orders [facility]01-02-2024 History of Present illness Narrative* Jurgen Holden RN - 10/25/2023 5:28 PM EST [facility] Note-Received referral for MAXIMILIAN rueda in [facility] from Dr. Calderon. Workup process started. Pt called to schedule appointment, LVM requesting call back. documented in this [id number] History of Present illness Narrative* YUKO Kang - 09/28/2023 10:30 AM EST Review of Systems A complete review of systems are negative except those consistent with HPI No fevers, chills or sweats No cough, chest pain No dysphagia, odynophagia No abdominal pain, nausea, vomiting, diarrhea No dysuria, frequency, hematuria No headache, dizziness, focal neurologic complaints No ear pain No sinus pain No rash No weight loss No joint or muscular pain Recent travel history? No * Monse Shipley MD - 09/28/2023 10:30 AM EST HPI Elena Galeano 63 y.o. female presents today for Toe Pain (4th toe on left foot from great toe. Dr. Uriarte debrided abscess on Sunday 07/15. No ATBs prescribed from him. ) Patient states ID consult appointment in June of 2023 that she is longstanding history of for several months of a left toe infection. She denies any specific trauma or inciting event that started this all. Past medical history includes stroke, AFib, left eye blindness, CLL and diffuse non-Hodgkin's lymphoma history status post chemotherapy s/p 10 yrs ago, GERD, hyperlipidemia, hypertension, DMII per record, fatty liver disease, obstructive sleep apnea, obesity, anemia, history of COVID. 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 Blackwood. History of former tobacco use, not current. No significant alcohol use, occasional. No illicit abx. No animal bites/scratches, no trauma noted, no barefoot outdoor walking. No hx of gout Patient was seen by Podiatry 05/05/2023 due to ingrown toenail of the 4th left toe ongoing issues for about 3 months at that time per notes with 2 courses of Keflex given at that time. Podiatry diagnosed with a patient with concerns for abscess and cellulitis of the distal 4th toe on 05/05 and MRI was ordered but was negative on 05/10 for deeper infection at that time. Patient was treated with local mupirocin and antibiotic oral course of cefixime. Patient was then treated in the May timeframe with a course of Levaquin per Podiatry and then a course of doxycycline for 14 days new x-ray ordered showing soft tissue swelling on 06/14 without clear bony disease. Patient was then seen on 06/28by Podiatry and a repeat MRI was order due to concern for osteomyelitis of the 4th toe per Podiatryalthough radiology report was negative from 06/29. Hx significant for recurrent purulence reported and patient was referred at this visit to Infectious Disease for IV antibiotics as well as plans forsurgical debridement with an incision and drainage pending for 07/08 with consideration of hyperbaric treatment as well noted No known allergies to antibiotics noted ID consult visit 07/04/2023 Patient denies any fevers or chills. Does note some sweats. No systemic symptoms otherwise. Denies any significant left toe pain. She states that there is a pocket in her plantar area that she believes is collecting fluid and then she has intermittent drainage from this area. ID clinic follow up 07/13, she is status post surgery by Podiatry on 07/08 for incision and drainageof left 4th toe with abscess and cellulitis reported. There was no gross purulence for operative report and cultures were taken. Patient here for follow up of culture data. The culture data was obtained yesterday and plans for adjustment of antibiotics today. Patient denies any fevers chills or sweats. Culture shows Staphylococcus epidermidis rare which is likely a contaminant, resistant to clindamycin and penicillin but otherwise sensitive. Patient also grew Finegoldia. AFB and fungal stains/cultures are pending. Patient's foot is currently dressed, no significant pain noted. No other complai nts reported F/up 07/18, on augmentin. Tolerating well. Some left 4th toe pain, sutures in place. F/up podiatry today. No f/c/s. No other symptoms on ROS. Patient was started on Augmentin 07/13 but not note any significant improvement in pain or discomfort. Some blood on drainage but no other discharge and no purulence noted. No tracking cellulitis. ID clinic 07/22, messaged by podiatry to see patient today for iv abx as new abscess formed again on4th toe and I&D again on 07/21 with new cx taken. NO inciting event and no pedicures of recent. No trauma. ID clinic 07/29, for f/up visit. Ongoing drainage pus reported. No pain. No f/c/s. On po augmentinand zyvox, already these well with some minimum diarrhea of 1-2 stools a day. However purulence of left 4th toe continues despite oral antibiotics with intermittent purulent drainage from both dors[place] lateral aspects. Patient notes no other symptoms or toe involvement. Had MRI today which shows abscess but no osteomyelitis. Still no word from insurance about approving home IV infusion. Saw Podiatry yesterday. Infectious disease clinic follow up. Patient was seen by Podiatry on 08/11 with recurrent issues ofswelling and I&D found gelatinous material was removed. Cultures negative. Patient tolerating ertapenem. Patient feels that her toe is improved today. Denies any side effects of the central line or antibiotics reported. No fevers or chills. Infectious disease clinic appointment. Patient is still taking IV antibiotics. Case was discussed with Podiatry since last visit. Patient is on ertapenem and going to infusion center for infusions. Previous pathology shows hyperkeratosis and possible trauma. Patient was seen by Podiatry on 08/23 who felt that the toe is healing well. Patient denies any side effects of the antibiotics. No feverschills or sweats. No abdominal symptoms. There is no describes pain in her foot or drainage reported. Please follow-up appointment. Patient denies any fevers or chills. He is currently off antibiotics.Here for follow-up evaluation. Patient is still with tenderness of the toe especially on the dorsalaspect when there is pressure puts this area but denies any drainage. Patient denies any other systemic symptoms. There are still areas of what the structure was at him out of toe, and then remains unclear if this was part of her soft tissues something foreign as well. Patient continues to deny history of walking barefoot in getting something in her toe or a fly bite Infectious disease follow-up visit 09/28. No fevers chills or sweats or systemic symptoms. No toe pain. Still with opening on the plantar surface of her left foot toe and had silver nitrate applied by Podiatry but scab has fallen off and patient states that there is older lookingPus-like material that comes out occasionally. She is currently not dressing it. She denies any significant drainage. No tenderness noted. Patient did have trauma to her left foot as exemplified by a bruise on the dorsum of her foot. No other toe abnormalities reported. Currently not on antibiotics. ROS Review of Systems A complete review of systems are negative except those consistent with HPI No fevers, chills or sweats No cough, chest pain No dysphagia, odynophagia No abdominal pain, nausea, vomiting, diarrhea No dysuria, frequency, hematuria No headache, dizziness, focal neurologic complaints No ear pain No sinus pain No rash No weight loss No joint or muscular pain Recent travel history? No HISTORY/ALLERGIES/MEDS Allergies Allergen Reactions Nsaids Has CKD-3a, and Anemia Past Medical History: Diagnosis Date A-fib Anemia low Fe Arrhythmia Arthritis ASCUS of cervix with negative high risk HPV Asthma not asthma B12 deficiency Carotid stenosis, bilateral-Right 30%, and left 60% Central retinal artery occlusion of left eye CKD (chronic kidney disease) stage 3, GFR 30-59 ml/min-3a patient denies CLL (chronic lymphocytic leukemia) 2011 [id number] on 09-30-2020 Depression Diffuse non-Hodgkin's lymphoma chemotherapy Folate deficiency GERD (gastroesophageal reflux disease) Gout pt denies Hiatal hernia pt denies Hyperglycemia Hyperlipidemia LDL goal <70 Hypertension Hyponatremia Liver disease fatty liver Non-Hodgkin lymphoma 2012 in remission PERCY (obstructive sleep apnea) PVC's (premature ventricular contractions) 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 (blindness) Past Surgical History: Procedure Laterality Date I&D BURSA FOOT Left 07/08/2023 Laterality: Left; Surgeon: Dawn Uriarte DPM; Location: [facility] OR INJECTION NERVE OTHER PERIPHERAL Left 12/16/2022 Laterality: Left; Surgeon: Isreal Sigala MD; Location: [facility] OR GUIDANCE FLUOROSCOPIC NEEDLE OR CATHETER PLACEMENT FOR SPINE INJECTION ADD-ON PX Left 12/16/2022 Laterality: Left; Surgeon: Isreal Sigala MD; Location: [facility] OR SUSPENSION URETHRA/URETHROVESICAL FEMALE OPEN W/ SYNTHETIC MATERIAL (SLING) Midline 08/31/2022 Laterality: Midline; Surgeon: Dariusz Rangel MD; Location: [facility] OR CYSTOURETHROSCOPY W/ DILATION BLADDER Midline 08/31/2022 Laterality: Midline; Surgeon: Dariusz Rangel MD; Location: [facility] OR COLPORRHAPHY ANTEROPOSTERIOR REPAIR CYSTOCELE & RECTOCELE Midline 08/31/2022 Laterality: Midline; Surgeon: Dariusz Rangel MD; Location: [facility] OR ARTHRODESIS SACROILIAC JOINT MINIMALLY INVASIVE W/ TRANSFIXING DEVICE Left 06/17/2022 Laterality: Left; Surgeon: Isreal Sigala MD; Location: [facility] OR GUIDANCE FLUOROSCOPIC NEEDLE OR CATHETER PLACEMENT FOR SPINE INJECTION ADD-ON PX Left 06/17/2022 Laterality: Left; Surgeon: Isreal Sigala MD; Location: [facility] OR EGD W/ DILATION BALLOON N/A 12/01/2021 Laterality: N/A; Surgeon: Indra Parrish DO; Location: [facility]OSCOPY SHOULDER ARTHROSCOPY Left 06/18/2021 REMOVAL CENTRAL VENOUS ACCESS DEVICE TUNNELED W/ PORT PUMP Left 09/13/2019 Laterality: Left; Surgeon: Eduardo Muñoz MD; Location: [facility] INTERVENTIONAL RADIOLOGY (VIR) EGD W/ DILATION BALLOON N/A 06/30/2018 Laterality: N/A; Surgeon: Indra Parrish DO; Location: [facility] EGD DIAGNOSTIC N/A 04/07/2018 Laterality: N/A; Surgeon: Wilner Leigh MD; Location: [facility] COLONOSCOPY DIAGNOSTIC N/A 04/07/2018 Laterality: N/A; Surgeon: Wilner Leigh MD; Location: [facility]COPY KNEE REPLACEMENT Right 05/2015 done at [facility] ARTHROPLASTY KNEE TOTAL Right 04/2015 INSERTION PICC W/ PORT PUMP 2015 power port COLONOSCOPY DIAGNOSTIC 2007 SALPINGO-OOPHORECTOMY OPEN N/A 1984 APPENDECTOMY OPEN 1983 TONSILLECTOMY ADENOIDECTOMY 1968 EGD DIAGNOSTIC 10 months ago Social History Socioeconomic History Marital status: Spouse name: Not on file Number of children: Not on file Years of education: Not on file Highest education level: Not on file Occupational History Employer: RETIRED Tobacco Use Smoking status: Former Packs/day: 0.75 Years: 35.00 Additional pack years: 0.00 Total pack years: 26.25 Types: Cigarettes Quit date: 04/23/2013 Years since quittin.2 Smokeless tobacco: Never Vaping Use Vaping Use: Never used Substance and Sexual Activity Alcohol use: Yes Alcohol/week: 2.0 standard drinks of alcohol Types: 2 Cans of beer per week Drug use: Never Sexual activity: Not Currently control/protection: Menopause Other Topics Concern Service Not Asked Blood Transfusions Not Asked Caffeine Concern Not Asked Occupational Exposure Not Asked Hobby Hazards Not Asked Sleep Concern Not Asked Stress Concern Not Asked Weight Concern Not Asked Special Diet Not Asked Back Care Not Asked Exercise Not Asked Bike Helmet Not Asked Seat Belt Not Asked Domestic Violence No Social History Narrative Not on file Social Determinants of Health Financial Resource Strain: Not on file Food Insecurity: Not on file Transportation Needs: Not on file Physical Activity: Not on file Stress: Not on file Social Connections: Not on file Intimate Partner Violence: Not on file Housing Stability: Not on file Family History Problem Relation Age of Onset Hypertension Mother Lipid Disorder Mother Depression Mother Clotting Disorder Mother hx of DVT Dementia Father Arrhythmia Father A-Fib Anesth Problems Sister post-op n/v Breast Cancer Maternal Aunt Cancer- Other Maternal Uncle melanoma Ovarian Cancer Paternal Aunt Cancer Paternal Aunt brain Lung Cancer Maternal Grandfather Hypertension Son Lipid Disorder Daughter No known problems Daughter Autism Grandson Current Outpatient Medications: Albuterol (Ventolin HFA) 108 (90 Base) MCG/ACT Aero Soln inhaler, Inhale 2 puffs every 6 hours as needed for Wheezing., Disp: 18 g, Rfl: 0 Allopurinol 100 MG tablet, Take 1 tablet by mouth daily., Disp: 90 tablet, Rfl: 3 Amoxicillin-clavulanate 875-125 MG tablet, Take 1 tablet by mouth every 12 hours for 10 days., Disp: 20 tablet, Rfl: 0 apixaban 2.5 MG tablet, 2.5 mg 2 tabs, BID- Lot # [id number] 08.15, Disp: 56 tablet, Rfl: 0 buPROPion (Wellbutrin XL) 300 MG tablet XL, Take 1 tablet by mouth every morning before breakfast.,Disp: 90 tablet, Rfl: 0 carveDILOL (Coreg) 12.5 MG tablet, Take 1 tablet by mouth 2 times daily with meals. Given by Dr. Calderon, Disp: , Rfl: Cetirizine 10 MG tablet, Take 1 tablet by mouth daily as needed for Allergies. OTC, Disp: , Rfl: Clindamycin Phos-Benzoyl Perox 1.2-3.75 % Gel, Apply 1 Application topically daily. Given by Dermatology Dr. Dejesus, Disp: , Rfl: Clopidogrel 75 MG tablet, Take 1 tablet by mouth daily., Disp: 90 tablet, Rfl: 3 cyanocobalamin 1000 MCG tablet, Take 1 tablet by mouth daily. Chew 1 tab q daily, Disp: 90 tablet, Rfl: 0 Evolocumab (Repatha SureClick) 140 MG/ML Solution Auto-injector injection, Inject 1 mL under the skin every 14 days. (Patient taking differently: Inject 1 mL under the skin every 14 days. Last dose 06/17/2023), Disp: 2 mL, Rfl: 11 fenofibrate 160 MG tablet, Take 1 tablet by mouth daily., Disp: 90 tablet, Rfl: 3 Folic acid 1 MG tablet, Take 1 tablet by mouth daily., Disp: 90 tablet, Rfl: 0 Lisinopril 5 MG tablet, Take 1 tablet by mouth daily. Cancel previous refills, Disp: 90 tablet, Rfl: 0 magnesium oxide 400 (240 Mg) MG, Take 1 tablet by mouth daily. OTC, Disp: , Rfl: Mupirocin 2 % ointment, Apply topical TID for 7 days, Disp: 30 g, Rfl: 0 Pantoprazole (Protonix) [address] tablet DR, Take 1 tablet by mouth 2 times daily (take before meals)., Disp: 180 tablet, Rfl: 0 traZODone 100 MG tablet, Take 1 tablet by mouth at bedtime., Disp: 90 tablet, Rfl: 0 triamterene-hydrochlorothiazide (Dyazide) 37.5-25 MG per capsule, Take 1 capsule by mouth daily. Cancel previous refills, Disp: 90 capsule, Rfl: 3 hydroCODone-acetaminophen 5-325 MG tablet, Take 1 tablet by mouth every 4 hours as needed for Moderate Pain for up to 3 days., Disp: 18 tablet, Rfl: 0 EXAM BP 128/72 (BP Location: Right arm, BP Position: Sitting) Pulse 82 Temp 96.8 F (36 C) (Temporal) Resp 18 Ht 1.651 m (5' 5) Wt 94.8 kg (209 lb) SpO2 97% BMI 34.78 kg/m Smoking Status Former Physical Exam Vitals and nursing note reviewed. Constitutional: General: She is not in acute distress. Appearance: Normal appearance. HENT: Head: Normocephalic and atraumatic. Mouth/Throat: Pharynx: Oropharynx is clear. No oropharyngeal exudate. Eyes: Extraocular Movements: Extraocular movements intact. Conjunctiva/sclera: Conjunctivae normal. Pupils: Pupils are equal, round, and reactive to light. Cardiovascular: Rate and Rhythm: Normal rate and regular rhythm. Pulses: Normal pulses. Heart sounds: Normal heart sounds. No murmur heard. Pulmonary: Effort: Pulmonary effort is normal. No respiratory distress. Breath sounds: Normal breath sounds. No rhonchi or rales. Abdominal: General: Bowel sounds are normal. There is no distension. Palpations: Abdomen is soft. Tenderness: There is no abdominal tenderness. There is no guarding. Genitourinary: Comments: No CVA or suprapubic tenderness Musculoskeletal: General: No swelling or tenderness. Normal range of motion. Cervical back: Normal range of motion and neck supple. No rigidity. Comments: Left 4th toe with wound that has a plantar small pinhole size opening with no pain, drainage or redness noted. The overall appearance of her toe has improved but it is slightly warm to touch and slightly red compared to the other digits. She also has a distal toe wound with no drainage aswell as a dorsal foot ecchymoses for which she thinks she may have dropped something on her foot Skin: General: Skin is warm and dry. Findings: No rash. Comments: LUE line in place, no complications Neurological: General: No focal deficit present. Mental Status: She is alert. Psychiatric: Mood and Affect: Mood normal. Behavior: Behavior normal. Thought Content: Thought content normal. LABS CBC Lab Results Component Value Date WBC 6.6 06/29/2023 HGB 13.2 06/29/2023 HCT 39.1 06/29/2023 PLATELET 218 06/29/2023 MCV 97.4 06/29/2023 EDIF Lab Results Component Value Date RBCDISTRIBU 14.0 06/29/2023 GRNLOCYT 43.5 09/29/2022 LYMPHOCYT 45.1 09/29/2022 MONOCYTELEC 9.2 09/29/2022 EOSINOPHILS 1.2 04/21/2023 EOSINOPHILS 0.1 04/21/2023 BASOPHILS 0.6 04/21/2023 BASOPHILS 0.0 04/21/2023 GRNLOCTYABS 3.0 11/03/2016 LYMPHOCYTABS 1.8 04/21/2023 MONOSABSOLU 0.5 11/03/2016 EOSINOPHLABS 0.09 09/29/2022 BASOPHILSABS 0.1 11/03/2016 PLATELET 218 06/29/2023 MPV 8.5 06/29/2023 EDIF Lab Results Component Value Date RBCDISTRIBU 14.0 06/29/2023 GRNLOCYT 43.5 09/29/2022 LYMPHOCYT 45.1 09/29/2022 MONOCYTELEC 9.2 09/29/2022 EOSINOPHILS 1.2 04/21/2023 EOSINOPHILS 0.1 04/21/2023 BASOPHILS 0.6 04/21/2023 BASOPHILS 0.0 04/21/2023 GRNLOCTYABS 3.0 11/03/2016 LYMPHOCYTABS 1.8 04/21/2023 MONOSABSOLU 0.5 11/03/2016 EOSINOPHLABS 0.09 09/29/2022 BASOPHILSABS 0.1 11/03/2016 PLATELET 218 06/29/2023 MPV 8.5 06/29/2023 ESR Lab Results Component Value Date RBCDISTRIBU 14.0 06/29/2023 GRNLOCYT 43.5 09/29/2022 LYMPHOCYT 45.1 09/29/2022 MONOCYTELEC 9.2 09/29/2022 EOSINOPHILS 1.2 04/21/2023 EOSINOPHILS 0.1 04/21/2023 BASOPHILS 0.6 04/21/2023 BASOPHILS 0.0 04/21/2023 GRNLOCTYABS 3.0 11/03/2016 LYMPHOCYTABS 1.8 04/21/2023 MONOSABSOLU 0.5 11/03/2016 EOSINOPHLABS 0.09 09/29/2022 BASOPHILSABS 0.1 11/03/2016 PLATELET 218 06/29/2023 MPV 8.5 06/29/2023 Lab Results Component Value Date SODIUM 133 (L) 06/29/2023 POTASSIUM 4.3 06/29/2023 CHLORIDE 100 06/29/2023 CO2 25 06/29/2023 BUN 16 06/29/2023 CREATSERUM 0.82 06/29/2023 GLUCOSE 123 (H) 06/29/2023 No results found for: CRP Lab Results Component Value Date RESULTCULT FINEGOLDIA MAGNA 07/08/2023 RESULTCULT STAPHYLOCOCCUS EPIDERMIDIS 07/08/2023 . Lab Results Component Value Date GLUCOSE 123 (H) 06/29/2023 . Lab Results Component Value Date CALCIUM 9.5 06/29/2023 Lab Results Component Value Date ALBUMIN 4.1 06/29/2023 SIUM 06/29/2023 CHLORIDE 06/29/2023 CO2 09 Lab Results Component Value Date BILITOTAL 0.9 06/29/2023 Lab Results Component Value Date BUN 16 06/29/2023 ALKPHOS 51 06/29/2023 BILITOTAL 0.9 06/29/2023 BILIDIRECT 0.1 10/22/2015 No orders to display IMAGING MRI FOOT LEFT WITHOUT CONTRAST Result Date: 06/29/2023 EXAM: MRI FOOT LEFT WITHOUT CONTRAST COMPARISON: Left foot x-rays from 06/14/2023 and left foot MRI from 05/10/2023. HISTORY: Infection in the fourth toe. Evaluate for osteomyelitis. TECHNIQUE: Multiplanar and multisequence imaging of the left foot was performed without contrast. FINDINGS: Motion artifact degrades evaluation on this study. There is mild soft tissue swelling involving the fourth toewith mild subcutaneous edema. Correlation for clinical findings of cellulitis would be helpful. There is no well-defined abscess. There is no MRI evidence of osteomyelitis. There is no low T1 signal or bony destruction in the phalanges of the fourth toe. No fracture or dislocation is evident. Thereis no metatarsal stress fracture. The tarsometatarsal alignment is anatomic. There is mild joint space narrowing and spurring involving the first metatarsophalangeal joint. Flexor and extensor tendons and the midfoot and forefoot appear intact with no focal tendon tear. There is no focal tenosynovitis. No muscle edema is identified. IMPRESSION: 1. There is mild subcutaneous edema and soft tissue swelling of the fourth toe suspicious for cellulitis. 2. No MRI evidence of osteomyelitis. 3. No focal abscess. 4. No acute or healing fracture in the foot. MRI SPINE LUMBAR WITHOUT CONTRAST Result Date: 06/20/2023 TITLE: MRI SPINE LUMBAR WITHOUT CONTRAST COMPARISON: 2021 lumbar spine MRI CLINICAL HISTORY: Low back pain radiating to the sacroiliac joints TECHNIQUE: Sagittal T1, sagittal T2 FSE, sagittal STIR, and axial T2 FSE. FINDINGS: Alignment is normal. There is no listhesis nor vertebral body height loss. The conus medullaris terminates at L1-2 and appears normal. The visualized adjacent soft suggest asmall right renal cyst. Prominent dorsal epidural fat L1-L5.. New metallic hardware traversing the left sacroiliac joint. T12-L1: Normal disc space. No stenosis L1-L2:Mild disc bulge. No significant stenosis. L2-3: Diffuse disc bulge. Left foraminal extension. Bilateral facet hypertrophy. Mild central canal and moderate left-sided foraminal narrowing L3-4: Mild disc bulge. Mild tear in left lateral annulus. Bilateral facet hypertrophy. Mild to moderate central canal and left-sided foraminal narrowing L4-5: Disc space narrowing lateral disc and osteophyte formation. Central disc protrusion. Facet hypertrophy and prominent dorsal epidural fat. This results in moderate to severe central canal and moderate foraminal narrowing L5-S1: Mild disc bulge. Bilateral facet hypertrophy. There is no significant central canal and [id number] left-sided foraminal narrowing IMPRESSION: MODERATE MULTILEVEL DEGENERATIVE CHANGES OF THE LUMBAR SPINE PROMINENT DORSAL EPIDURAL FAT L1-L5 L2-3: DIFFUSE DISC BULGE WITH LEFT FORAMINAL DISC PROTRUSION SMALL ANNULAR TEAR L3-4 MODERATE TO SEVERE MULTIFACTORIAL CENTRAL STENOSIS L4-5 FACET HYPERTROPHY LOWER 2 LUMBAR LEVELS XR FOOT LEFT 3 VIEWS Result Date: 06/14/2023 EXAM: XR FOOT LEFT 3 VIEWS HISTORY: left 4th toe infection COMPARISON: 05/02/2023. FINDINGS: 3 weightbearing views were submitted. Again the fourth toe appears swollen. Fracture, opaque foreign body or bony erosion not identified. Spurs present plantar and posterior calcaneus. IMPRESSION: 1. Again there is soft tissue swelling fourth toe, osseous abnormality not identified. 2. Calcaneal spurs. XR SPINE LUMBAR W BENDING Result Date: 06/07/2023 EXAM: XR SPINE LUMBAR W BENDING HISTORY: Spondylosis of lumbar region without myelopathy or radiculopathy COMPARISON: None. TECHNIQUE: 5 views with flexion and extension Findings/impression: Satisfactory alignment. Maintained vertebral body heights. Multilevel disc disease and facet arthropathy of L3-S1. Intact hardware. No acute fracture or subluxation. Left-sided sacroiliac fixation. Intact hardware. Diagnosis/Plan: There are no diagnoses linked to this encounter. Complex left 4th toe infection -MRI 05/11 and 06/29 does not show clear osteomyelitis but does have soft tissue swelling -culture from 4th toe 05/17 with Staphylococcus epidermidis for thigh overgrowth only likely a contaminant; 05/05 negative; 05/02 with finegoldia -history of MRSA nares 04/21 negative -Keflex x 2, cefixime, levaquin and doxycycline course without clearance per history -concern for a deep-seated infection that is not being resolved with short courses of oral therapy -s/p operative procedure 07/08 with S epi and finegoldia. -there is no inciting trauma or events preceding this infection that the patient recalls including no bite injuries, soil, pedicures or other inciting events to suggest unusual organisms but this remains in the differential -Operative 07/08 finding no pus and MRI negative for OM; did debride down to tendon; specimens for bacterial aerobic and anaerobic showed S. Epi and Finegoldia on 07/08 -suspect the staph epi is not a true cause of a deep-seated infection given lack of hardware -S/p Augmentin 875 mg twice daily for the finegoldia, 07/13-07/24 -plan at least a three-week treatment course but possibly longer -fungal and afb cultures 07/29, NGTD -Recurrent I&D for abscess on 07/21, cx negative -MRI: Worsening subcutaneous edema/cellulitis over the left fourth digit with new focal collection/abscess laterally. No osteomyelitis. -despite Augmentin and Zyvox as well as prior antibiotics including doxycycline, Levaquin and cephalosporins she continues to have a purulent abscess of her toe. -uric acid is normal and no history of gout per her report; consider noninfectious causes but none clear - she does have history of cancer but this is remote would be an odd presentation -plan to discuss with 2nd infectious disease provider, recommended PCR to be done -TB and Fungitell of blood negative -Repeat cultures purulence 07/29 for AFB and fungal cultures, NGTD -patient had I&D on 08/11 with culture negative by Podiatry but no PCR; path with hyperkeratosis with possible trauma -s/p PICC and ertapenem since 07/29-08/29 and line removed -Watch, if ID again then will need further studies including repeat imaging and pcr and deep pathology -Toe plantar area open status post silver nitrate placed on 09/20 by Podiatry who states that the scab has fallen off and there are some times when there is what she calls or purulence coming out. Nospecific pain or tenderness. The appearance of her toe has improved. We will do watchful waiting atthis time unless she develops systemic symptoms or worsening appearance of her foot at which time we would recommend repeat labs, imaging and deep tissue biopsy. Also if this does not completely closed and healed would consider reopening the area and sending for broad range PCR, cultures, pathologywhen this was discussed with her and her and all questions answered. -they have follow-up in 1 week with Podiatry and was recommended to come back in 1 month unless there is new issues developing; discussed with her that we will do watchful waiting as it is not certain whether this will heal appropriately or if she will need future intervention and she stated understanding Hx of yeast ID -S/p tx, resolved Hx of DM +-patient denies a history of diabetes but this is in her record and states that she is not currently on any management. Previous BMP shows mildly elevated glucose. -a1c 5.5, 5.8 - normal range Healthcare maintenance -history of prior flu shots, would recommend flu shot this fall and s/p 08/25/23 given -history of pneumococcal conjugate and polysaccharide vaccines -history of tetanus vaccine 2017 -recommend keeping up-to-date on all recommended vaccines Elevated CRP -Fluctuating, did have sinus infection which may have contributed -CRP 8.67, 9.2 -ESR normal -CRP still mildly elevated Left knee degenerative disease -operative management by Orthopedics is on hold pending resolution of toe infection Return to clinic in 30 days, sooner with new or evolving problems. 14 min of care Please note Portions of this note utilized [employer] and [employer] dictation software, please excuse any typographical or grammatical errors. [facility] History of Present illness Narrative* Clara Real - 09/26/2023 12:30 PM EST Referred by: \Dr. Sigala Chief Complaint Patient presents with Lower Back - Pain, Follow-up HPI Patient received manual right lumbar paraspinal trigger point injection 06/21/23 Patient noted pain relief for almost 2 months Patient continues to report pain of right SI joint region with prolonged weight bearing or ambulation. Patient states she would like to proceed with US guided right SI joint injection at this time. Location: right SI joint region Quality: ache Duration: years NSAIDs? Contraindicated due to CKD Analgesics? Tylenol Other pain modalities? Topical creams Physical therapy? Done following left fusion Xrays? Lumbar spine 06/07/23 MRI? Lumbar spine 06/20/23 Patient activity (i.e. Job, sport, etc.): patient is retired, tries to stay active around her home Treatment performed or prescribed at last visit? Manual right lumbar paraspinal trigger point injection 06/21/23 Response to treatment since last visit? Pain relief noted for approximately 2 months Current Outpatient Medications: Albuterol (Ventolin HFA) 108 (90 Base) MCG/ACT Aero Soln inhaler, Inhale 2 puffs every 6 hours as needed for Wheezing., Disp: 18 g, Rfl: 0 Allopurinol 100 MG tablet, Take 1 tablet by mouth daily., Disp: 90 tablet, Rfl: 3 apixaban 5 MG tablet, Take 1 tablet by mouth every 12 hours., Disp: 180 tablet, Rfl: 3 buPROPion (Wellbutrin XL) 300 MG tablet XL, Take 1 tablet by mouth every morning before breakfast.,Disp: 90 tablet, Rfl: 0 carveDILOL (Coreg) 12.5 MG tablet, Take 1 tablet by mouth 2 times daily with meals. Given by Dr. Calderon, Disp: 180 tablet, Rfl: 3 Cetirizine 10 MG tablet, Take 1 tablet by mouth daily as needed for Allergies. OTC, Disp: , Rfl: Clindamycin Phos-Benzoyl Perox 1.2-3.75 % Gel, Apply 1 Application topically daily. Given by Dermatology Dr. Dejesus, Disp: , Rfl: Clopidogrel 75 MG tablet, Take 1 tablet by mouth daily., Disp: 90 tablet, Rfl: 3 cyanocobalamin 1000 MCG tablet, Take 1 tablet by mouth daily. Chew 1 tab q daily, Disp: 90 tablet, Rfl: 0 Evolocumab (Repatha SureClick) 140 MG/ML Solution Auto-injector injection, Inject 1 mL under the skin every 14 days., Disp: 2 mL, Rfl: 11 fenofibrate 160 MG tablet, Take 1 tablet by mouth daily., Disp: 90 tablet, Rfl: 3 Folic acid 1 MG tablet, Take 1 tablet by mouth daily., Disp: 90 tablet, Rfl: 0 Lisinopril 5 MG tablet, Take 1 tablet by mouth daily., Disp: 90 tablet, Rfl: 3 magnesium oxide 400 (240 Mg) MG, Take 1 tablet by mouth daily. OTC, Disp: , Rfl: Pantoprazole (Protonix) [address] tablet DR, Take 1 tablet by mouth 2 times daily (take before meals)., Disp: 180 tablet, Rfl: 0 traZODone 100 MG tablet, Take 1 tablet by mouth at bedtime., Disp: 90 tablet, Rfl: 0 triamterene-hydrochlorothiazide (Dyazide) 37.5-25 MG per capsule, Take 1 capsule by mouth daily. Cancel previous refills, Disp: 90 capsule, Rfl: 3 Family History Problem Relation Age of Onset Hypertension Mother Lipid Disorder Mother Depression Mother Clotting Disorder Mother hx of DVT Dementia Father Arrhythmia Father A-Fib Anesth Problems Sister post-op n/v Breast Cancer Maternal Aunt Cancer- Other Maternal Uncle melanoma Ovarian Cancer Paternal Aunt Cancer Paternal Aunt brain Lung Cancer Maternal Grandfather Hypertension Son Lipid Disorder Daughter No known problems Daughter Autism Grandson Social History Tobacco Use Smoking status: Former Packs/day: 0.75 Years: 35.00 Additional pack years: 0.00 Total pack years: 26.25 Types: Cigarettes Quit date: 04/23/2013 Years since quittin.4 Smokeless tobacco: Never Vaping Use Vaping Use: Never used Substance Use Topics Alcohol use: Yes Alcohol/week: 2.0 standard drinks of alcohol Types: 2 Cans of beer per week Drug use: Never Past Surgical History: Procedure Laterality Date I&D BURSA FOOT Left 07/08/2023 Laterality: Left; Surgeon: Dawn Uriarte DPM; Location: [facility] OR INJECTION NERVE OTHER PERIPHERAL Left 12/16/2022 Laterality: Left; Surgeon: Isreal Sigala MD; Location: [facility] OR GUIDANCE FLUOROSCOPIC NEEDLE OR CATHETER PLACEMENT FOR SPINE INJECTION ADD-ON PX Left 12/16/2022 Laterality: Left; Surgeon: Isreal Sigala MD; Location: [facility] OR SUSPENSION URETHRA/URETHROVESICAL FEMALE OPEN W/ SYNTHETIC MATERIAL (SLING) Midline 08/31/2022 Laterality: Midline; Surgeon: Dariusz Rangel MD; Location: [facility] OR CYSTOURETHROSCOPY W/ DILATION BLADDER Midline 08/31/2022 Laterality: Midline; Surgeon: Dariusz Rangel MD; Location: [facility] OR COLPORRHAPHY ANTEROPOSTERIOR REPAIR CYSTOCELE & RECTOCELE Midline 08/31/2022 Laterality: Midline; Surgeon: Dariusz Rangel MD; Location: [facility] OR ARTHRODESIS SACROILIAC JOINT MINIMALLY INVASIVE W/ TRANSFIXING DEVICE Left 06/17/2022 Laterality: Left; Surgeon: Isreal Sigala MD; Location: [facility] OR GUIDANCE FLUOROSCOPIC NEEDLE OR CATHETER PLACEMENT FOR SPINE INJECTION ADD-ON PX Left 06/17/2022 Laterality: Left; Surgeon: Isreal Sigala MD; Location: [facility] OR EGD W/ DILATION BALLOON N/A 12/01/2021 Laterality: N/A; Surgeon: Indra Parrish DO; Location: [facility] ENDOSCOPY SHOULDER ARTHROSCOPY Left 06/18/2021 REMOVAL CENTRAL VENOUS ACCESS DEVICE TUNNELED W/ PORT PUMP Left 09/13/2019 Laterality: Left; Surgeon: Eduardo Muñoz MD; Location: [facility] INTERVENTIONAL RADIOLOGY (VIR) EGD W/ DILATION BALLOON N/A 06/30/2018 Laterality: N/A; Surgeon: Indra Parrish DO; Location: [facility] ENDOSCOPY EGD DIAGNOSTIC N/A 04/07/2018 Laterality: N/A; Surgeon: Wilner Leigh MD; Location: [facility] ENDOSCOPY COLONOSCOPY DIAGNOSTIC N/A 04/07/2018 Laterality: N/A; Surgeon: Wilner Leigh MD; Location: [facility]OSCOPY KNEE REPLACEMENT Right 05/2015 done at [place]--CC ARTHROPLASTY KNEE TOTAL Right 04/2015 INSERTION PICC W/ PORT PUMP 2014 power port COLONOSCOPY DIAGNOSTIC 2006 SALPINGO-OOPHORECTOMY OPEN N/A 1983 APPENDECTOMY OPEN 1983 TONSILLECTOMY ADENOIDECTOMY 1967 EGD DIAGNOSTIC 10 months ago There were no vitals filed for this visit. Constitutional No fevers, chills or sweats, unintentional weight gain or weight loss, night pain, or night sweats except as per HPI. Cardiovascular No recent chest pain or palpitations. No claudication. No new or worsening lower extremity edema except as per HPI. Respiratory No new or worsening shortness of breath, dyspnea on exertion, orthopnea or paroxysmal nocturnal dyspnea except as per HPI. Gastrointestinal No recent heartburn or stomach upset, no history of ulcers except as per HPI. Musculoskeletal No joint pain, stiffness, or weakness except as per HPI. Endocrine No polyphagia, polydypsia, or polyuria. Hematologic No known or recent anemia, no excessive bleeding. Rheumatologic No history or currently active autoimmune or rheumatologic disease except as per HPI. Integumentary No new or relevant rashes or lesions except as per HPI. Neurologic No numbness, tingling, or weakness into her distal extremities except as per HPI. Constitutional Normal No acute distress. Well nourished. Well developed. Head/Face Normal Facial features - Normal. Eyebrows - Normal. Skull - Normal. Hair and scalp - Normal. Eyes Normal General - Right: Normal, Left: Normal. Lids/external - Right: Normal, Left: Normal. Conjunctiva - Right: Normal, Left: Normal. Ears Normal Inspection - Right: Normal, Left: Normal. Pinna - Right: Normal, Left: Normal. Nasopharynx Normal External nose - Normal. Nares - Right: Normal. Nasal Mucosa - Normal. Lips/teeth/gums - Normal. Buccal mucosa - Normal. Neck Exam Normal Inspection - Normal. Range of motion - Normal. Neck Exam Comments Supple. Respiratory Normal Inspection - Normal. Cough - Absent. Effort - Normal. Cardiovascular Normal Heart rate - Regular rate. Vascular Normal Pulses - Radial: Normal, Brachial: Normal, Dorsalis pedis: Normal, Posterior tibial: Normal. Capillary refill - Less than 2 seconds. Skin * Rash - Description: none. Extremity Normal No Edema. No Calf tenderness. Diabetic Foot Screen Normal Pulses - Dorsalis pedis: Normal, Posterior tibial: Normal. Neurological Normal Level of consciousness - Normal. Orientation - Normal. Memory - Normal. Psychiatric Normal No agitation. Appropriate mood and affect. Appropriate affect. Normal insight. Normal judgment. * Chelsea Olivarez - 09/26/2023 12:30 PM ESTAssociated Order(s): LARGE JOINT/BURSA INJECTION AND/OR ASPIRATION Post-Procedure Diagnose(s): Osteoarthritis of right sacroiliac joint; Pain of right sacroiliac joint Interval exam: Lumbar spine Inspection: No erythema, ecchymosis, swelling or deformity. No open wounds. NVID Lumbar xray reviewed from 06/07/[address] Stephens 06/21/23 History obtained from patient. ASSESSMENT and PLAN: 1. Osteoarthritis of right sacroiliac joint 2. Pain of right sacroiliac joint Sarah did well with previous injection and so we elected to proceed with injection again today to the right SI with corticosteroid. We reviewed options once again including surgery, but we are not ready to proceed surgically. We will see her back in 3 months to re-evaluate and consider treatment options including repeat injection. Referrals: None Medications prescribed today: None Follow up plan: 3 month Possible US Guided right SI joint injection Severity of problem(s): Mild Risk of morbidity from the condition and/or testing or treatment: Low Medical Decision Making At today's visit I reviewed the history, physical examination, and previous pertinent imaging. We weighed the options of whether or not to proceed with an injection today based off of these findings and discussed alternatives. After this discussion, I felt that the injection was indicated and we elected to proceed. This evaluation and management service was a separate and identifiable service apart from the injection. LARGE JOINT/BURSA INJECTION AND/OR ASPIRATION Date/Time: 09/26/2023 12:30 PM Performed by: Garry Stephens MD Authorized by: Garry Stephens MD Supporting Documentation Indications: pain and osteoarthritis Procedure Details: Location: sacroiliac - R sacroiliac joint Local Anesthetic: bupivacaine 0.5% and lidocaine 1% Total Local Anesthetic: 4 mLs Guidance: ultrasound Ultrasound probe size: 4 mHz curvilinear Images were saved electronically. Needle size: 22 G Needle Length: 4.0 inch Approach: posterior Medication Verification: I have personally verified and performed the final check of the medication(s) used in this procedure prior to administration. The following items were included during the verification process for medication(s) administered: drug name, strength, volume, expiration, physical integrity and appearance of the medication(s). Medications administered: 1 mL BUPivacaine 0.5 %; 2 mL triamcinolone 40 MG/ML; 4 mL Lidocaine 10 mg/mL; 5 mL Sodium chloride (PF) 0.9 %; 4 mg dexAMETHasone 4 MG/ML Patient tolerance: patient tolerated the procedure well with no immediate complications Comments Medical Decision Making At today's visit I reviewed the history, physical examination, and previous pertinent imaging. We weighed the options of whether or not to proceed with an injection today based off of these findings and discussed alternatives. After this discussion, I felt that the injection was indicated and we elected to proceed. This evaluation and management service was a separate and identifiable service apart from the injection. Pre-Procedure Details The attending physician was present for the entire procedure. Consent: Consent was obtained prior to the procedure after discussion of the risks, benefits and alternatives, and expected outcomes were discussed with the patient. The possibilities of reaction to medication, bleeding, infection, the need for additional procedures, failure to diagnosis a condition, and creating a complication requiring operation were discussed with the patient. The patient concurred with the proposed plan, giving consent. Preparation: Patient was prepped in the usual sterile fashion. The patient was prepped with Chloraprep. Patient counseled on expected outcome and continued treatment and healing process. Patient tolerated the procedure well and was discharged in good condition with post-procedure instructions and anticipatory guidance regarding possible adverse reactions after the procedure including but not limited to infection, injection site flare reaction, allergic reaction. If corticosteroids were used then specifically the patient may develop hyperglycemia, facial flushing, heart palpitations amongst many other side effects associated with corticosteroids. Patient reports 100% relief while anaesthetized on the right side. * Garry Stephens MD - 09/26/2023 12:30 PM EST Referred by: \Dr. Sigala Chief Complaint Patient presents with Lower Back - Pain, Follow-up HPI Patient received manual right lumbar paraspinal trigger point injection 06/21/23 Patient noted pain relief for almost 2 months Patient continues to report pain of right SI joint region with prolonged weight bearing or ambulation. Patient states she would like to proceed with US guided right SI joint injection at this time. Location: right SI joint region Quality: ache Duration: years NSAIDs? Contraindicated due to CKD Analgesics? Tylenol Other pain modalities? Topical creams Physical therapy? Done following left fusion Xrays? Lumbar spine 06/07/23 MRI? Lumbar spine 06/20/23 Patient activity (i.e. Job, sport, etc.): patient is retired, tries to stay active around her home Treatment performed or prescribed at last visit? Manual right lumbar paraspinal trigger point injection 06/21/23 Response to treatment since last visit? Pain relief noted for approximately 2 months Current Outpatient Medications: Albuterol (Ventolin HFA) 108 (90 Base) MCG/ACT Aero Soln inhaler, Inhale 2 puffs every 6 hours as needed for Wheezing., Disp: 18 g, Rfl: 0 Allopurinol 100 MG tablet, Take 1 tablet by mouth daily., Disp: 90 tablet, Rfl: 3 apixaban 5 MG tablet, Take 1 tablet by mouth every 12 hours., Disp: 180 tablet, Rfl: 3 buPROPion (Wellbutrin XL) 300 MG tablet XL, Take 1 tablet by mouth every morning before breakfast.,Disp: 90 tablet, Rfl: 0 carveDILOL (Coreg) 12.5 MG tablet, Take 1 tablet by mouth 2 times daily with meals. Given by Dr. Calderon, Disp: 180 tablet, Rfl: 3 Cetirizine 10 MG tablet, Take 1 tablet by mouth daily as needed for Allergies. OTC, Disp: , Rfl: Clindamycin Phos-Benzoyl Perox 1.2-3.75 % Gel, Apply 1 Application topically daily. Given by Dermatology Dr. Dejesus, Disp: , Rfl: Clopidogrel 75 MG tablet, Take 1 tablet by mouth daily., Disp: 90 tablet, Rfl: 3 cyanocobalamin 1000 MCG tablet, Take 1 tablet by mouth daily. Chew 1 tab q daily, Disp: 90 tablet, Rfl: 0 Evolocumab (Repatha SureClick) 140 MG/ML Solution Auto-injector injection, Inject 1 mL under the skin every 14 days., Disp: 2 mL, Rfl: 11 fenofibrate 160 MG tablet, Take 1 tablet by mouth daily., Disp: 90 tablet, Rfl: 3 Folic acid 1 MG tablet, Take 1 tablet by mouth daily., Disp: 90 tablet, Rfl: 0 Lisinopril 5 MG tablet, Take 1 tablet by mouth daily., Disp: 90 tablet, Rfl: 3 magnesium oxide 400 (240 Mg) MG, Take 1 tablet by mouth daily. OTC, Disp: , Rfl: Pantoprazole (Protonix) [address] tablet DR, Take 1 tablet by mouth 2 times daily (take before meals)., Disp: 180 tablet, Rfl: 0 traZODone 100 MG tablet, Take 1 tablet by mouth at bedtime., Disp: 90 tablet, Rfl: 0 triamterene-hydrochlorothiazide (Dyazide) 37.5-25 MG per capsule, Take 1 capsule by mouth daily. Cancel previous refills, Disp: 90 capsule, Rfl: 3 Family History Problem Relation Age of Onset Hypertension Mother Lipid Disorder Mother Depression Mother Clotting Disorder Mother hx of DVT Dementia Father Arrhythmia Father A-Fib Anesth Problems Sister post-op n/v Breast Cancer Maternal Aunt Cancer- Other Maternal Uncle melanoma Ovarian Cancer Paternal Aunt Cancer Paternal Aunt brain Lung Cancer Maternal Grandfather Hypertension Son Lipid Disorder Daughter No known problems Daughter Autism Grandson Social History Tobacco Use Smoking status: Former Packs/day: 0.75 Years: 35.00 Additional pack years: 0.00 Total pack years: 26.25 Types: Cigarettes Quit date: 04/23/2013 Years since quittin.4 Smokeless tobacco: Never Vaping Use Vaping Use: Never used Substance Use Topics Alcohol use: Yes Alcohol/week: 2.0 standard drinks of alcohol Types: 2 Cans of beer per week Drug use: Never Past Surgical History: Procedure Laterality Date I&D BURSA FOOT Left 07/08/2023 Laterality: Left; Surgeon: Dawn Uriarte DPM; Location: [facility] OR INJECTION NERVE OTHER PERIPHERAL Left 12/16/2022 Laterality: Left; Surgeon: Isreal Sigala MD; Location: [facility] OR GUIDANCE FLUOROSCOPIC NEEDLE OR CATHETER PLACEMENT FOR SPINE INJECTION ADD-ON PX Left 12/16/2022 Laterality: Left; Surgeon: Isreal Sigala MD; Location: [facility] OR SUSPENSION URETHRA/URETHROVESICAL FEMALE OPEN W/ SYNTHETIC MATERIAL (SLING) Midline 08/31/2022 Laterality: Midline; Surgeon: Dariusz Rangel MD; Location: [facility] OR CYSTOURETHROSCOPY W/ DILATION BLADDER Midline 08/31/2022 Laterality: Midline; Surgeon: Dariusz Rangel MD; Location: [facility] OR COLPORRHAPHY ANTEROPOSTERIOR REPAIR CYSTOCELE & RECTOCELE Midline 08/31/2022 Laterality: Midline; Surgeon: Dariusz Rangel MD; Location: [facility] OR ARTHRODESIS SACROILIAC JOINT MINIMALLY INVASIVE W/ TRANSFIXING DEVICE Left 06/17/2022 Laterality: Left; Surgeon: Isreal Sigala MD; Location: [facility] OR GUIDANCE FLUOROSCOPIC NEEDLE OR CATHETER PLACEMENT FOR SPINE INJECTION ADD-ON PX Left 06/17/2022 Laterality: Left; Surgeon: Isreal Sigala MD; Location: [facility] OR EGD W/ DILATION BALLOON N/A 12/01/2021 Laterality: N/A; Surgeon: Indra Parrish DO; Location: [facility] ENDOSCOPY SHOULDER ARTHROSCOPY Left 06/18/2021 REMOVAL CENTRAL VENOUS ACCESS DEVICE TUNNELED W/ PORT PUMP Left 09/13/2019 Laterality: Left; Surgeon: Eduardo Muñoz MD; Location: [facility] (VIR) EGD W/ DILATION BALLOON N/A 06/30/2018 Laterality: N/A; Surgeon: Indra Parrish DO; Location: [facility] ENDOSCOPY EGD DIAGNOSTIC N/A 04/07/2018 Laterality: N/A; Surgeon: Wilner Leigh MD; Location: [facility] ENDOSCOPY COLONOSCOPY DIAGNOSTIC N/A 04/07/2018 Laterality: N/A; Surgeon: Wilner Leigh MD; Location: [facility] ENDOSCOPY KNEE REPLACEMENT Right 05/2015 done at [place]--CC ARTHROPLASTY KNEE TOTAL Right 04/2015 INSERTION PICC W/ PORT PUMP 2014 power port COLONOSCOPY DIAGNOSTIC 2006 SALPINGO-OOPHORECTOMY OPEN N/A 1983 APPENDECTOMY OPEN 1983 TONSILLECTOMY ADENOIDECTOMY 1968 EGD DIAGNOSTIC 10 months ago There were no vitals filed for this visit. Constitutional No fevers, chills or sweats, unintentional weight gain or weight loss, night pain, or night sweats except as per HPI. Cardiovascular No recent chest pain or palpitations. No claudication. No new or worsening lower extremity edema except as per HPI. Respiratory No new or worsening shortness of breath, dyspnea on exertion, orthopnea or paroxysmal nocturnal dyspnea except as per HPI. Gastrointestinal No recent heartburn or stomach upset, no history of ulcers except as per HPI. Musculoskeletal No joint pain, stiffness, or weakness except as per HPI. Endocrine No polyphagia, polydypsia, or polyuria. Hematologic No known or recent anemia, no excessive bleeding. Rheumatologic No history or currently active autoimmune or rheumatologic disease except as per HPI. Integumentary No new or relevant rashes or lesions except as per HPI. Neurologic No numbness, tingling, or weakness into her distal extremities except as per HPI. Constitutional Normal No acute distress. Well nourished. Well developed. Head/Face Normal Facial features - Normal. Eyebrows - Normal. Skull - Normal. Hair and scalp - Normal. Eyes Normal General - Right: Normal, Left: Normal. Lids/external - Right: Normal, Left: Normal. Conjunctiva - Right: Normal, Left: Normal. Ears Normal Inspection - Right: Normal, Left: Normal. Pinna - Right: Normal, Left: Normal. Nasopharynx Normal External nose - Normal. Nares - Right: Normal. Nasal Mucosa - Normal. Lips/teeth/gums - Normal. Buccal mucosa - Normal. Neck Exam Normal Inspection - Normal. Range of motion - Normal. Neck Exam Comments Supple. Respiratory Normal Inspection - Normal. Cough - Absent. Effort - Normal. Cardiovascular Normal Heart rate - Regular rate. Vascular Normal Pulses - Radial: Normal, Brachial: Normal, Dorsalis pedis: Normal, Posterior tibial: Normal. Capillary refill - Less than 2 seconds. Skin * Rash - Description: none. Extremity Normal No Edema. No Calf tenderness. Diabetic Foot Screen Normal Pulses - Dorsalis pedis: Normal, Posterior tibial: Normal. Neurological Normal Level of consciousness - Normal. Orientation - Normal. Memory - Normal. Psychiatric Normal No agitation. Appropriate mood and affect. Appropriate affect. Normal insight. Normal judgment. Interval exam: Lumbar spine Inspection: No erythema, ecchymosis, swelling or deformity. No open wounds. NVID Lumbar xray reviewed from 06/07/[address] Stephens 06/21/23 History obtained from patient. ASSESSMENT and PLAN: 1. Osteoarthritis of right sacroiliac joint 2. Pain of right sacroiliac joint Sarah did well with previous injection and so we elected to proceed with injection again today to the right SI with corticosteroid. We reviewed options once again including surgery, but we are not ready to proceed surgically. We will see her back in 3 months to re-evaluate and consider treatment options including repeat injection. Referrals: None Medications prescribed today: None Follow up plan: 3 month Possible US Guided right SI joint injection Severity of problem(s): Mild Risk of morbidity from the condition and/or testing or treatment: Low Medical Decision Making At today's visit I reviewed the history, physical examination, and previous pertinent imaging. We weighed the options of whether or not to proceed with an injection today based off of these findings and discussed alternatives. After this discussion, I felt that the injection was indicated and we elected to proceed. This evaluation and management service was a separate and identifiable service apart from the injection. LARGE JOINT/BURSA INJECTION AND/OR ASPIRATION Date/Time: 09/26/2023 12:30 PM Performed by: Garry Stephens MD Authorized by: Garry Stephens MD Supporting Documentation Indications: pain and osteoarthritis Procedure Details: Location: sacroiliac - R sacroiliac joint Local Anesthetic: bupivacaine 0.5% and lidocaine 1% Total Local Anesthetic: 4 mLs Guidance: ultrasound Ultrasound probe size: 4 mHz curvilinear Images were saved electronically. Needle size: 22 G Needle Length: 4.0 inch Approach: posterior Medication Verification: I have personally verified and performed the final check of the medication(s) used in this procedure prior to administration. The following items were included during the verification process for medication(s) administered: drug name, strength, volume, expiration, physical integrity and appearance of the medication(s). Medications administered: 1 mL BUPivacaine 0.5 %; 2 mL triamcinolone 40 MG/ML; 4 mL Lidocaine 10 mg/mL; 5 mL Sodium chloride (PF) 0.9 %; 4 mg dexAMETHasone 4 MG/ML Patient tolerance: patient tolerated the procedure well with no immediate complications Comments Medical Decision Making At today's visit I reviewed the history, physical examination, and previous pertinent imaging. We weighed the options of whether or not to proceed with an injection today based off of these findings and discussed alternatives. After this discussion, I felt that the injection was indicated and we elected to proceed. This evaluation and management service was a separate and identifiable service apart from the injection. Pre-Procedure Details The attending physician was present for the entire procedure. Consent: Consent was obtained prior to the procedure after discussion of the risks, benefits and alternatives, and expected outcomes were discussed with the patient. The possibilities of reaction to medication, bleeding, infection, the need for additional procedures, failure to diagnosis a condition, and creating a complication requiring operation were discussed with the patient. The patient concurred with the proposed plan, giving consent. Preparation: Patient was prepped in the usual sterile fashion. The patient was prepped with Chloraprep. Patient counseled on expected outcome and continued treatment and healing process. Patient tolerated the procedure well and was discharged in good condition with post-procedure instructions and anticipatory guidance regarding possible adverse reactions after the procedure including but not limited to infection, injection site flare reaction, allergic reaction. If corticosteroids were used then specifically the patient may develop hyperglycemia, facial flushing, heart palpitations amongst many other side effects associated with corticosteroids. I have reviewed, edited and added to the above note and agree with those findings. Additions if any: Garry Stephens MD, [facility] [employer] - [facility] documented in this [facility] [place]12-04-2023 Instructions* Patient Instructions* Chelsea Olivarez - 09/26/2023 12:30 PM EST Patient counseled on expected outcome and continued treatment and healing process. Patient tolerated the procedure well and was discharged in good condition with post-procedure instructions and anticipatory guidance regarding possible adverse reactions after the procedure including but not limited to infection, injection site flare reaction, allergic reaction. If corticosteroids were used then specifically the patient may develop hyperglycemia, facial flushing, heart palpitations amongst many other side effects associated with corticosteroids. documented in this [facility] [place]11-29-2023 History of Present illness Narrative* Sean Khan MD, PhD - 09/21/2023 11:20 AM EST Chief Complaint Patient presents with Follow-up Disease History Diagnostics from OSH in 2011 CLL/SLL: - 05/2012: symptoms of shortness of breath and went to ED, found to have Splenomegaly 21cm on abd us and lymphocytosis - Bone marrow biopsy: morphology with absolute lymphocytosis composed of small lymphocytes with small round nuclei and clumped chromatin and a 2nd population with more abundant cytoplasm; predominantpopulation of cd19,20,23 with a minor population of cd5,19,20,23,79b; bcl2/igh translocation detected; bcl6, and bcl2 expression noted; 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 Elena Galeano is a 63 y.o. woman with a history of CLL who presents for ongoing follow up and treatment plans. She is here today for a 1 year follow up visit. Has had one week of nausea with vomiting after eating solid food with every meal attempt. Handling thin liquids fine and able to get calories via protein supplement drinks. Has had a prolonged courseof multiple antibiotics for her toe. Has been off antibiotics for the past month. Saw podiatry yesterday and reports that they feel that she is healing slowly but okay. Denies fevers. Has hot flashesand reports extensive sweats over the past 1.5 months both at night and during day. Has maybe lost a couple pounds over the last week. Does have history of dysphagia that she has been scoped multipletimes for but reports that these were normal and last one was ~1 year ago. Has had chronic about once weekly vomiting over the past year. 2 years ago was able to tolerate meals but has been progressively needing to eat smaller amounts prior to being full. Denies any known sick contacts, hasn't tested for COVID. No sore throat. No diarrhea, constipation, bloody BM or hematemesis. Does have a PCP but hasn't discussed N/V with them yet. Denies any noted lymph nodes. Did have CVA in October and lost vision in L eye but denies any other Neuro deficits. Review of Systems History obtained from chart review and the patient Negative except for listed in HPI Allergies Allergen Reactions Nsaids Has CKD-3a, and Anemia Past Medical History: Diagnosis Date A-fib Anemia low Fe Arrhythmia Arthritis ASCUS of cervix with negative high risk HPV Asthma not asthma B12 deficiency Carotid stenosis, bilateral-Right 30%, and left 60% Central retinal artery occlusion of left eye CKD (chronic kidney disease) stage 3, GFR 30-59 ml/min-3a patient denies CLL (chronic lymphocytic leukemia) 2011 [id number] on 09-30-2020 Depression Diffuse non-Hodgkin's lymphoma chemotherapy Folate deficiency GERD (gastroesophageal reflux disease) Gout pt denies Hiatal hernia pt denies Hyperglycemia Hyperlipidemia LDL goal <70 Hypertension Hyponatremia Liver disease fatty liver Non-Hodgkin lymphoma 2011 in remission PERCY (obstructive sleep apnea) PVC's (premature ventricular contractions) 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 (blindness) Social History Socioeconomic History Marital status: Occupational History Employer: RETIRED Tobacco Use Smoking status: Former Packs/day: 0.75 Years: 35.00 Additional pack years: 0.00 Total pack years: 26.25 Types: Cigarettes Quit date: 04/23/2013 Years since quittin.4 Smokeless tobacco: Never Vaping Use Vaping Use: Never used Substance and Sexual Activity Alcohol use: Yes Alcohol/week: 2.0 standard drinks of alcohol Types: 2 Cans of beer per week Drug use: Never Sexual activity: Not Currently control/protection: Menopause Other Topics Concern Domestic Violence No Family History Problem Relation Age of Onset Hypertension Mother Lipid Disorder Mother Depression Mother Clotting Disorder Mother hx of DVT Dementia Father Arrhythmia Father A-Fib Anesth Problems Sister post-op n/v Breast Cancer Maternal Aunt Cancer- Other Maternal Uncle melanoma Ovarian Cancer Paternal Aunt Cancer Paternal Aunt brain Lung Cancer Maternal Grandfather Hypertension Son Lipid Disorder Daughter No known problems Daughter Autism Grandson Current Outpatient Medications Medication Sig Albuterol (Ventolin HFA) 108 (90 Base) MCG/ACT Aero Soln inhaler Inhale 2 puffs every 6 hours as needed for Wheezing. Allopurinol 100 MG tablet Take 1 tablet by mouth daily. apixaban 5 MG tablet Take 1 tablet by mouth every 12 hours. buPROPion (Wellbutrin XL) 300 MG tablet XL Take 1 tablet by mouth every morning before breakfast. carveDILOL (Coreg) 12.5 MG tablet Take 1 tablet by mouth 2 times daily with meals. Given by Dr. Calderon Cetirizine 10 MG tablet Take 1 tablet by mouth daily as needed for Allergies. OTC Clindamycin Phos-Benzoyl Perox 1.2-3.75 % Gel Apply 1 Application topically daily. Given by Dermatology Dr. Dejesus Clopidogrel 75 MG tablet Take 1 tablet by mouth daily. cyanocobalamin 1000 MCG tablet Take 1 tablet by mouth daily. Chew 1 tab q daily Evolocumab (Repatha SureClick) 140 MG/ML Solution Auto-injector injection Inject 1 mL under the skin every 14 days. fenofibrate 160 MG tablet Take 1 tablet by mouth daily. Folic acid 1 MG tablet Take 1 tablet by mouth daily. Lisinopril 5 MG tablet Take 1 tablet by mouth daily. magnesium oxide 400 (240 Mg) MG Take 1 tablet by mouth daily. OTC Pantoprazole (Protonix) [address] tablet DR Take 1 tablet by mouth 2 times daily (take before meals). traZODone 100 MG tablet Take 1 tablet by mouth at bedtime. triamterene-hydrochlorothiazide (Dyazide) 37.5-25 MG per capsule Take 1 capsule by mouth daily. Cancel previous refills Physical Exam Blood pressure 129/62, pulse 67, temperature 98.4 F (36.9 C), temperature source Oral, resp. rate 18, height 1.651 m (5' 5), weight 97.9 kg (215 lb 14.4 oz), SpO2 96 %, not currently . ECOG performance status: 0 General: Alert, no apparent distress. HEENT: Sclera anicteric CV: Regular rate and rhythm, no rubs, murmurs, or gallops Pulm: Chest is clear, no wheezing or rales. Abd: The abdomen is soft. No hepatosplenomegaly but tender on LUQ lateral palpation Ext: No edema. Skin: No rashes. Neuro: Patient is alert and oriented times three. Moving all 4 extremities well Lymph Node examination is as follows: Location Right Left Anterior Cervical neg neg Posterior Cervical neg neg Supraclavicular neg neg Axillary neg neg Inguinal neg neg Results for orders placed or performed in visit on 08/11/23 CULTURE WOUND Specimen: FOOT; Wound Result Value Ref Range SPECIMEN DESCRIPTION LEFT FOOT COMMENT LEFT 4TH TOE GRAM STAIN FEW RESULT-CULT NO GROWTH 2 DAYS Report Status 08/13/2023 Assessment and Plan CLL/SLL: Elena Galeano is a 63 y.o. year old woman with CLL/SLL s/p 6 cycles of RCVP followed by 2yrs of Rituxan completed in 04/2014. She is here for a 1 year follow up visit. She has no evidencefor recurrent disease by physical exam or laboratory studies. CBCs and chemistries are stable. Imaging for possible splenomegaly pending, but low suspicion for CLL related. There are no indications to initiate treatment, we will continue to follow her with observation. Vomiting: Unclear etiology, consider mechanical compression via recurrent splenomegaly vs strictureor possible dysmotility or bacteremia. Given LUQ tenderness will rule out splenomegaly with CTAP. Counts reassuring so low suspicion that this is related to CLL. Chemistry without ASHLEY, no need for hyd ration today. Advised pt to discuss symptoms with PCP and consider re-eval with GI. No systemic symptoms to suggest bacteremia from toe, will have follow-up with ID next week. 4th toe infection: Prolonged course with multiple rounds of antibiotics including PICC for IV antibiotics, I&D, and continues to follow with ID and podiatry. Health Maintenance: She is UTD on age-appropriate health screenings. Continue to follow with PCP for general health and screening maintenance. Immunizations: Patient will receive influenza vaccination today. COVID 19: She has not received any COVID-19 vaccinations and she is not interested in doing so at this time. RTC in 1 year. Plan discussed with attending, Dr. Livia Khan MD, PhD PGY-4 Heme Onc Fellow * Naty Bhakta MD - 09/21/2023 11:20 AM EST I have seen and examined this patient and have discussed the patient with Dr. Khan. I agree with the history, exam, and medical decision making as documented. Patient has been having N/V for a week, but this has been a cycle that has occurred over the past year where she has intermittent nausea/vomiting and early satiety. Also has some dysphagia which has been worked up within the past year with EGD. She has had recent infection in her toe and has received multiple antibiotics. Exam does not reveal splenomegaly. Will order abd/pelvis CT. Encourage patient to see PCP soon and consider re- evaluation with GI. No signs of CLL progression on laboratory studies or exam. [facility] Instructions* Patient Instructions* Miri Vargas RN - 09/21/2023 11:20 AM EST YOUR PRIMARY TEAM Dr. Naty Echols, RESIDENTIAL CARE OFFICER - Nurse Practitioner Sujit Thomason, RN - Primary Nurse Miri Vargas, RN- Secondary Nurse Please contact our office if you develop a temperature of 100.4 or greater. CONTACT NUMBERS Clinic phone: [phone] Clinic fax: [phone] MEDICAL RECORDS The Release of Information (KEVIN) area is staffed from 8:00 a.m. to 7:00 p.m. and is available for walk in requests from 8:00 a.m. to 4:30 p.m. [facility] is responsible for answering requests for copies of medical records from various requestors such as insurance companies, attorneys, hospitals and patients. Please note it can take up to 2 weeks to complete your request. [phone]; [phone] (fax). DISABILITY FORMS This category includes any form (STD, LTD, FMLA, cancer insurance policy) requiring information to be completed by a physician or nurse practitioner. The forms should be given to the clinic nurse. There is no fee associated with this request but note it may take 2 weeks to complete. The forms cannot be completed during a clinic visit or within 24 hours of your request. It is important to place the patient s name, employee s name, patient s date, date disability begins and ends and any required signatures. Ask our team about the suggested recovery time. [employer] perfect is a secure way to get access to your labs online. In most instances, your test results are released to your [email or web address] account after your physician has reviewed them. This is generally within two weeks. Some routine test results are automatically delivered to your account, while others are released by your health care provider. In both cases, your provider will receive and review all y our test results, and he or she will contact you if further discussion about your result is needed. For non-emergent concerns, please send us a [employer] message but describe your issue fully. As an example, tell us how long you've had the symptom, what makes it better or worse, what you've done for it already) and one of our nurses or nurse practitioners will respond kenneth. For questions or concerns regarding MyChart access or technical dificulties, please call [phone] or toll free at . Results for orders placed or performed in visit on 09/21/23 LACTATE DEHYDROGENASE Result Value Ref Range LD Total 149 100 - 190 U/L COMPREHENSIVE METABOLIC PANEL Result Value Ref Range Sodium 133 (L) 135 - 145 mmol/L Potassium 4.7 3.5 - 5.0 mmol/L Chloride 96 (L) 98 - 108 mmol/L BUN 20 7 - 25 mg/dL Creatinine 1.03 0.50 - 1.20 mg/dL Glucose 122 (H) 70 - 99 mg/dL Bilirubin Total 0.4 <1.5 mg/dL Albumin 4.1 3.5 - 5.0 g/dL Total Protein 7.0 6.4 - 8.3 g/dL AST 23 10 - 39 U/L ALP 41 32 - 126 U/L Calcium 10.0 8.6 - 10.5 mg/dL CO2 27 21 - 31 mmol/L ALT 17 9 - 48 U/L Bun/Crea Ratio 19 Osmolality (Calculated) 285 278 - 305 mOsm/kg Anion Gap 15 7 - 17 mmol/L eGFR, CKD-EPI, Female 60 >=60 mL/min/1.73m2 CBC AND ELECTRONIC DIFF Result Value Ref Range WBC Count 7.72 3.99 - 11.19 K/uL RBC Count 3.93 3.91 - 5.04 M/uL Hemoglobin 12.8 11.4 - 15.2 g/dL Hematocrit 38.0 34.9 - 44.3 % Mean Cell Volume 96.7 79.6 - 97.7 fL Mean Cell Hgb 32.6 25.9 - 33.9 pg Mean Cell Hgb Conc 33.7 31.4 - 35.9 g/dL RBC Distribution 12.9 10.8 - 14.9 % Platelet Count 220 150 - 393 K/uL Mean Platelet Volume 10.3 8.5 - 12.2 fL DIFF STATUS Electronic Differential Segs + Bands Auto 61.0 % Immature Grans % 0.1 % Lymphocyte % Auto 23.7 % Monocyte % Auto 14.5 % Eosinophil % Auto 0.1 % Basophil % Auto 0.6 % Nucleated RBC 0.0 <=0.2 /100 WBC Segs + Bands,Absolute Auto 4.70 1.64 - 7.28 K/uL Immature Grans Absolute <0.04 <=0.08 K/uL Abs Lymph Auto 1.83 1.16 - 3.51 K/uL Abs Winston Auto 1.12 (H) 0.22 - 0.87 K/uL Abs Eos Auto <0.04 0.00 - 0.42 K/uL Abs Baso Auto 0.05 0.00 - 0.15 K/uL documented in this [facility]11-28-2023 History of Present illness Narrative* Joycelyn Calhoun MA - 09/20/2023 1:00 PM EST Nurse Note: Review of Systems Constitutional: Negative for fatigue, fever and unexpected weight change. HENT: No difficulty swallowing No change in voice Respiratory: Negative for cough, shortness of breath and wheezing. Cardiovascular: Negative for chest pain, palpitations and leg swelling. Gastrointestinal: Negative for constipation, diarrhea, nausea and vomiting. Neurological: Negative for tremors, weakness and numbness. Psychiatric/Behavioral: Negative for sleep disturbance. The patient is not nervous/anxious. Nursing Assessment: Physical Exam * Dawn Uriarte DPM - 09/20/2023 1:00 PM EST Patient Elena Galeano Date: 09/20/2023 Subjective: Elena is here for follow up of left 4th toe infection. She notes that recently she thinks she is getting a little drainage out of it. History She did get her PICC and is getting antibiotics per dr. Shipley. She had her MRI as well. She feels like the toe is filling with fluid again. History She goes to see dr. shipley tomorrow. Waiting on approval for PICC. History She is on updated antibiotics per dr. Shipley. She notes she is doing ok. She is on augmentin History that the toe is improving, but something is happening on the underside of the toe. History of the left 4th toe. She notes that she is on her 2nd round of keflex. She has had an xray a few days ago and some purulence drained from the toe a few days ago. A culture is pending. She notes that the toe has been bad for 3-4 months, but she really has had problems on and off for about a month. She does not remember any kind of trauma. Allergies Allergen Reactions Nsaids Has CKD-3a, and Anemia Current Outpatient Medications Medication Sig Albuterol (Ventolin HFA) 108 (90 Base) MCG/ACT Aero Soln inhaler Inhale 2 puffs every 6 hours as needed for Wheezing. Allopurinol 100 MG tablet Take 1 tablet by mouth daily. apixaban 5 MG tablet Take 1 tablet by mouth every 12 hours. buPROPion (Wellbutrin XL) 300 MG tablet XL Take 1 tablet by mouth every morning before breakfast. carveDILOL (Coreg) 12.5 MG tablet Take 1 tablet by mouth 2 times daily with meals. Given by Dr. Calderon Cetirizine 10 MG tablet Take 1 tablet by mouth daily as needed for Allergies. OTC Clindamycin Phos-Benzoyl Perox 1.2-3.75 % Gel Apply 1 Application topically daily. Given by Dermatology Dr. Dejesus Clopidogrel 75 MG tablet Take 1 tablet by mouth daily. cyanocobalamin 1000 MCG tablet Take 1 tablet by mouth daily. Chew 1 tab q daily Evolocumab (Repatha SureClick) 140 MG/ML Solution Auto-injector injection Inject 1 mL under the skin every 14 days. fenofibrate 160 MG tablet Take 1 tablet by mouth daily. Folic acid 1 MG tablet Take 1 tablet by mouth daily. Lisinopril 5 MG tablet Take 1 tablet by mouth daily. magnesium oxide 400 (240 Mg) MG Take 1 tablet by mouth daily. OTC Pantoprazole (Protonix) [address] tablet DR Take 1 tablet by mouth 2 times daily (take before meals). traZODone 100 MG tablet Take 1 tablet by mouth at bedtime. triamterene-hydrochlorothiazide (Dyazide) 37.5-25 MG per capsule Take 1 capsule by mouth daily. Cancel previous refills Past Medical History: Diagnosis Date A-fib Anemia low Fe Arrhythmia Arthritis ASCUS of cervix with negative high risk HPV Asthma not asthma B12 deficiency Carotid stenosis, bilateral-Right 30%, and left 60% Central retinal artery occlusion of left eye CKD (chronic kidney disease) stage 3, GFR 30-59 ml/min-3a patient denies CLL (chronic lymphocytic leukemia) 2011 [id number] on 09-30-2020 Depression Diffuse non-Hodgkin's lymphoma chemotherapy Folate deficiency GERD (gastroesophageal reflux disease) Gout pt denies Hiatal hernia pt denies Hyperglycemia Hyperlipidemia LDL goal <70 Hypertension Hyponatremia Liver disease fatty liver Non-Hodgkin lymphoma 2012 in remission PERCY (obstructive sleep apnea) PVC's (premature ventricular contractions) 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 (blindness) Past Surgical History: Procedure Laterality Date I&D BURSA FOOT Left 07/08/2023 Laterality: Left; Surgeon: Dawn Uriarte DPM; Location: [facility] OR INJECTION NERVE OTHER PERIPHERAL Left 12/16/2022 Laterality: Left; Surgeon: Isreal Sigala MD; Location: [facility] OR GUIDANCE FLUOROSCOPIC NEEDLE OR CATHETER PLACEMENT FOR SPINE INJECTION ADD-ON PX Left 12/16/2022 Laterality: Left; Surgeon: Isreal Sigala MD; Location: [facility] OR SUSPENSION URETHRA/URETHROVESICAL FEMALE OPEN W/ SYNTHETIC MATERIAL (SLING) Midline 08/31/2022 Laterality: Midline; Surgeon: Dariusz Rangel MD; Location: [facility] OR CYSTOURETHROSCOPY W/ DILATION BLADDER Midline 08/31/2022 Laterality: Midline; Surgeon: Dariusz Rangel MD; Location: [facility] OR COLPORRHAPHY ANTEROPOSTERIOR REPAIR CYSTOCELE & RECTOCELE Midline 08/31/2022 Laterality: Midline; Surgeon: Dariusz Rangel MD; Location: [facility] OR ARTHRODESIS SACROILIAC JOINT MINIMALLY INVASIVE W/ TRANSFIXING DEVICE Left 06/17/2022 Laterality: Left; Surgeon: Isreal Sigala MD; Location: [facility] OR GUIDANCE FLUOROSCOPIC NEEDLE OR CATHETER PLACEMENT FOR SPINE INJECTION ADD-ON PX Left 06/17/2022 Laterality: Left; Surgeon: Isreal Sigala MD; Location: [facility] OR EGD W/ DILATION BALLOON N/A 12/01/2021 Laterality: N/A; Surgeon: Indra Parrish DO; Location: [facility] ENDOSCOPY SHOULDER ARTHROSCOPY Left 06/18/2021 REMOVAL CENTRAL VENOUS ACCESS DEVICE TUNNELED W/ PORT PUMP Left 09/13/2019 Laterality: Left; Surgeon: Eduardo Muñoz MD; Location: [facility] INTERVENTIONAL RADIOLOGY (VIR) EGD W/ DILATION BALLOON N/A 06/30/2018 Laterality: N/A; Surgeon: Indra Parrish DO; Location: [facility] ENDOSCOPY EGD DIAGNOSTIC N/A 04/07/2018 Laterality: N/A; Surgeon: Wilner Leigh MD; Location: [facility] ENDOSCOPY COLONOSCOPY DIAGNOSTIC N/A 04/07/2018 Laterality: N/A; Surgeon: Wilner Leigh MD; Location: [facility] ENDOSCOPY KNEE REPLACEMENT Right 05/2015 done at [place]--CC ARTHROPLASTY KNEE TOTAL Right 04/2015 INSERTION PICC W/ PORT PUMP 2014 power port COLONOSCOPY DIAGNOSTIC 2006 SALPINGO-OOPHORECTOMY OPEN N/A 1983 APPENDECTOMY OPEN 1983 TONSILLECTOMY ADENOIDECTOMY 1967 EGD DIAGNOSTIC 10 months ago Social History Occupational History Employer: RETIRED Tobacco Use Smoking status: Former Packs/day: 0.75 Years: 35.00 Additional pack years: 0.00 Total pack years: 26.25 Types: Cigarettes Quit date: 04/23/2013 Years since quittin.4 Smokeless tobacco: Never Vaping Use Vaping Use: Never used Substance and Sexual Activity Alcohol use: Yes Alcohol/week: 2.0 standard drinks of alcohol Types: 2 Cans of beer per week Drug use: Never Sexual activity: Not Currently control/protection: Menopause ROS: Review of Systems Nurse Note: Review of Systems Constitutional: Negative for fatigue, fever and unexpected weight change. HENT: No difficulty swallowing No change in voice Respiratory: Negative for cough, shortness of breath and wheezing. Cardiovascular: Negative for chest pain, palpitations and leg swelling. Gastrointestinal: Negative for constipation, diarrhea, nausea and vomiting. Neurological: Negative for tremors, weakness and numbness. Psychiatric/Behavioral: Negative for sleep disturbance. The patient is not nervous/anxious. Nursing Assessment: Physical Exam Objective: Vitals: 09/20/23 1248 BP: 150/80 Pulse: 65 Objective: Vascular: Dorsalis pedis and posterior tibial pulses are readilly palpable and graded at 2/4 left. Dermatological: Left 4th toe without swelling and no erythema. Plantar proximal toe with 0.1x0.1x0.1cm ulceration with hypergranular tissue. MRI FOOT LEFT WITHOUT CONTRAST Result Date: 05/10/2023 EXAM: MRI FOOT LEFT WITHOUT CONTRAST HISTORY: For stress swelling and abscess. Rule out osteomyelitis COMPARISON: None. TECHNIQUE: Multiplanar MRI of left foot was performed without contrast in sagittal, coronal and axial planes using T1, T2 and STIR pulsing sequences FINDINGS: Bony structures of left foot including visualized tarsal bones, metatarsals and phalanges demonstrate no evidence of fracture or contusion. No dislocation is seen. Small joint effusion is seen in the first metatarsophalangeal joint. Subtle marrow edema is suspected involving the fourth distal phalanx without bony destructive changes or abnormal T1 signal. No cortical disruption is seen to suggest osteomyelitis. The flexor and extensor tendons appear intact. Visualized plantar fascia appears intact. Collateral ligaments appear intact. Lisfranc ligament is visualized and appears intact. Evidence of superficial veindeep soft tissue edema involving fourth toe without focal collections. Muscles demonstrate normal signal. IMPRESSION: Soft tissue edema 4th distal phalanx without T1 abnormality or cortical disruption to suggest osteomyelitis. XR FOOT LEFT 3 VIEWS Result Date: 05/02/2023 EXAM: XR FOOT LEFT 3 VIEWS HISTORY: infection, redness, drainage of left 4th toe. COMPARISON: None available. FINDINGS: 3 views of the left foot were obtained. These were AP, oblique and lateral views weightbearing I do not specifically see any evidence of fracture or dislocation. There are no peria rticular calcifications, erosions or obvious signs of osteomyelitis. No soft tissue air is seen. The fourth digit appears prominently swollen IMPRESSION: 1. Prominent soft tissue swelling of the fourth digit of the left foot. 2. I do not seeany evidence of fracture, dislocation, advanced arthropathy or osteomyelitis. Assessment: Elena was seen today for follow-up. Diagnoses and all orders for this visit: Skin ulcer of fourth toe of left foot with fat layer exposed acute complicated, limb threatening diagnosis Plan: Patient was seen and evaluated today Applied silver nitrate to wound It appears that there was a small scab that came off Will do dry band aid for 2 weeks Follow up in 2 weeks documented in this [facility] [place]11-17-2023 History of Present illness Narrative* Tom Srivastava, KESHIA - 09/09/2023 11:40 AM EST DENTISTRY AND MAXILLOFACIAL PROSTHETICS Elena Galeano [id number] 09/09/2023 SUBJECTIVE: Elena Galeano presents today for follow-up regarding the oral mandibular advancement device. She is using the oral appliance 6 nights per week for approximately 8 hours per night. Patient-Entered Questionnaires Patient Questionairre: Do you snore when using the appliance? NO Is the appliance comfortable? YES Do you feel any more refreshed during the day? YES Does your bite return to normal each day? YES Do you have any pain in your teeth or jaw? NO ESS today = 8 Medical history:reviewed, no change. OBJECTIVE: General appearance, eyes, ears, nose, neck, face, and salivary glands are grossly symmetric and remain unchanged. Dentition remains unchanged. Hard and soft palate are unchanged. Oral mucosa and tongue are unchanged. No facial pain. Appliance set to 1 mm on the left and 1mm on the right. Exam reveals bilateral stable occlusal support and no significant change in teeth mobility. At the current position, the patient has 4-5mm of remaining protrusive ROM. ASSESSMENT: She appears to have a good response to the oral appliance. Obstructive sleep apnea is symptomatically improved with oral appliance therapy though treatment may remain subtherapeutic. Assessment of oral appliance effectiveness is pending objective testing. PLAN: We reviewed the importance of daily adherence with the prescribed morning exercises and reviewed the recommended protocol. Continue oral appliance therapy. Referral back to Dr. Randhawa to confirm efficacy. Follow up 6 weeks to review any further recommendations. Call sooner if use becomes painful or with any other concerns. Tom Srivastava DMD [facility] History of Present illness Narrative* YUKO Kang - 09/08/2023 11:00 AM EST Review of Systems A complete review of systems are negative except those consistent with HPI No fevers, chills or sweats No cough, chest pain No dysphagia, odynophagia No abdominal pain, nausea, vomiting, diarrhea No dysuria, frequency, hematuria No headache, dizziness, focal neurologic complaints No ear pain No sinus pain No rash No weight loss No joint or muscular pain Recent travel history? No * Monse Shipley MD - 09/08/2023 11:00 AM EST HPI Elena Galeano 63 y.o. female presents today for Toe Pain (4th toe on left foot from great toe. Dr. Uriarte debrided abscess on Sunday 07/15. No ATBs prescribed from him. ) Patient states ID consult appointment in June of 2023 that she is longstanding history of for several months of a left toe infection. She denies any specific trauma or inciting event that started this all. Past medical history includes stroke, AFib, left eye blindness, CLL and diffuse non-Hodgkin's lymphoma history status post chemotherapy s/p 10 yrs ago, GERD, hyperlipidemia, hypertension, DMII per record, fatty liver disease, obstructive sleep apnea, obesity, anemia, history of COVID. 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 Blackwood. History of former tobacco use, not current. No significant alcohol use, occasional. No illicit abx. No animal bites/scratches, no trauma noted, no barefoot outdoor walking. No hx of gout Patient was seen by Podiatry 05/05/2023 due to ingrown toenail of the 4th left toe ongoing issues for about 3 months at that time per notes with 2 courses of Keflex given at that time. Podiatry diagnosed with a patient with concerns for abscess and cellulitis of the distal 4th toe on 05/05 and MRI was ordered but was negative on 05/10 for deeper infection at that time. Patient was treated with local mupirocin and antibiotic oral course of cefixime. Patient was then treated in the May timeframe with a course of Levaquin per Podiatry and then a course of doxycycline for 14 days new x-ray ordered showing soft tissue swelling on 06/14 without clear bony disease. Patient was then seen on 06/28by Podiatry and a repeat MRI was order due to concern for osteomyelitis of the 4th toe per Podiatryalthough radiology report was negative from 06/29. Hx significant for recurrent purulence reported and patient was referred at this visit to Infectious Disease for IV antibiotics as well as plans forsurgical debridement with an incision and drainage pending for 07/08 with consideration of hyperbaric treatment as well noted No known allergies to antibiotics noted ID consult visit 07/04/2023 Patient denies any fevers or chills. Does note some sweats. No systemic symptoms otherwise. Denies any significant left toe pain. She states that there is a pocket in her plantar area that she believes is collecting fluid and then she has intermittent drainage from this area. ID clinic follow up 07/13, she is status post surgery by Podiatry on 07/08 for incision and drainageof left 4th toe with abscess and cellulitis reported. There was no gross purulence for operative report and cultures were taken. Patient here for follow up of culture data. The culture data was obtained yesterday and plans for adjustment of antibiotics today. Patient denies any fevers chills or sweats. Culture shows Staphylococcus epidermidis rare which is likely a contaminant, resistant to clindamycin and penicillin but otherwise sensitive. Patient also grew Finegoldia. AFB and fungal stains/cultures are pending. Patient's foot is currently dressed, no significant pain noted. No other complai nts reported F/up 07/18, on augmentin. Tolerating well. Some left 4th toe pain, sutures in place. F/up podiatry today. No f/c/s. No other symptoms on ROS. Patient was started on Augmentin 07/13 but not note any significant improvement in pain or discomfort. Some blood on drainage but no other discharge and no purulence noted. No tracking cellulitis. ID clinic 07/22, messaged by podiatry to see patient today for iv abx as new abscess formed again on4th toe and I&D again on 07/21 with new cx taken. NO inciting event and no pedicures of recent. No trauma. ID clinic 07/29, for f/up visit. Ongoing drainage pus reported. No pain. No f/c/s. On po augmentinand zyvox, already these well with some minimum diarrhea of 1-2 stools a day. However purulence of left 4th toe continues despite oral antibiotics with intermittent purulent drainage from both dors[place] lateral aspects. Patient notes no other symptoms or toe involvement. Had MRI today which shows abscess but no osteomyelitis. Still no word from insurance about approving home IV infusion. Saw Podiatry yesterday. Infectious disease clinic follow up. Patient was seen by Podiatry on 08/11 with recurrent issues ofswelling and I&D found gelatinous material was removed. Cultures negative. Patient tolerating ertapenem. Patient feels that her toe is improved today. Denies any side effects of the central line or antibiotics reported. No fevers or chills. Infectious disease clinic appointment. Patient is still taking IV antibiotics. Case was discussed with Podiatry since last visit. Patient is on ertapenem and going to infusion center for infusions. Previous pathology shows hyperkeratosis and possible trauma. Patient was seen by Podiatry on 08/23 who felt that the toe is healing well. Patient denies any side effects of the antibiotics. No feverschills or sweats. No abdominal symptoms. There is no describes pain in her foot or drainage reported. Please follow-up appointment. Patient denies any fevers or chills. He is currently off antibiotics.Here for follow-up evaluation. Patient is still with tenderness of the toe especially on the dorsalaspect when there is pressure puts this area but denies any drainage. Patient denies any other systemic symptoms. There are still areas of what the structure was at him out of toe, and then remains unclear if this was part of her soft tissues something foreign as well. Patient continues to deny history of walking barefoot in getting something in her toe or a fly bite ROS Review of Systems A complete review of systems are negative except those consistent with HPI No fevers, chills or sweats No cough, chest pain No dysphagia, odynophagia No abdominal pain, nausea, vomiting, diarrhea No dysuria, frequency, hematuria No headache, dizziness, focal neurologic complaints No ear pain No sinus pain No rash No weight loss No joint or muscular pain Recent travel history? No HISTORY/ALLERGIES/MEDS Allergies Allergen Reactions Nsaids Has CKD-3a, and Anemia Past Medical History: Diagnosis Date A-fib Anemia low Fe Arrhythmia Arthritis ASCUS of cervix with negative high risk HPV Asthma not asthma B12 deficiency Carotid stenosis, bilateral-Right 30%, and left 60% Central retinal artery occlusion of left eye CKD (chronic kidney disease) stage 3, GFR 30-59 ml/min-3a patient denies CLL (chronic lymphocytic leukemia) 2011 [id number] on 09-30-2020 Depression Diffuse non-Hodgkin's lymphoma chemotherapy Folate deficiency GERD (gastroesophageal reflux disease) Gout pt denies Hiatal hernia pt denies Hyperglycemia Hyperlipidemia LDL goal <70 Hypertension Hyponatremia Liver disease fatty liver Non-Hodgkin lymphoma 2012 in remission PERCY (obstructive sleep apnea) PVC's (premature ventricular contractions) 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 (blindness) Past Surgical History: Procedure Laterality Date I&D BURSA FOOT Left 07/08/2023 Laterality: Left; Surgeon: Dawn Uriarte DPM; Location: [facility] OR INJECTION NERVE OTHER PERIPHERAL Left 12/16/2022 Laterality: Left; Surgeon: Isreal Sigala MD; Location: [facility] OR GUIDANCE FLUOROSCOPIC NEEDLE OR CATHETER PLACEMENT FOR SPINE INJECTION ADD-ON PX Left 12/16/2022 Laterality: Left; Surgeon: Isreal Sigala MD; Location: [facility] OR SUSPENSION URETHRA/URETHROVESICAL FEMALE OPEN W/ SYNTHETIC MATERIAL (SLING) Midline 08/31/2022 Laterality: Midline; Surgeon: Dariusz Rangel MD; Location: [facility] OR CYSTOURETHROSCOPY W/ DILATION BLADDER Midline 08/31/2022 Laterality: Midline; Surgeon: Dariusz Rangel MD; Location: [facility] OR COLPORRHAPHY ANTEROPOSTERIOR REPAIR CYSTOCELE & RECTOCELE Midline 08/31/2022 Laterality: Midline; Surgeon: Dariusz Rangel MD; Location: [facility] OR ARTHRODESIS SACROILIAC JOINT MINIMALLY INVASIVE W/ TRANSFIXING DEVICE Left 06/17/2022 Laterality: Left; Surgeon: Isreal Sigala MD; Location: [facility] OR GUIDANCE FLUOROSCOPIC NEEDLE OR CATHETER PLACEMENT FOR SPINE INJECTION ADD-ON PX Left 06/17/2022 Laterality: Left; Surgeon: Isreal Sigala MD; Location: [facility] OR EGD W/ DILATION BALLOON N/A 12/01/2021 Laterality: N/A; Surgeon: Indra Parrish DO; Location: [facility] ENDOSCOPY SHOULDER ARTHROSCOPY Left 06/18/2021 REMOVAL CENTRAL VENOUS ACCESS DEVICE TUNNELED W/ PORT PUMP Left 09/13/2019 Laterality: Left; Surgeon: Eduardo Muñoz MD; Location: [facility] INTERVENTIONAL RADIOLOGY (VIR) EGD W/ DILATION BALLOON N/A 06/30/2018 Laterality: N/A; Surgeon: Indra Parrish DO; Location: [facility] ENDOSCOPY EGD DIAGNOSTIC N/A 04/07/2018 Laterality: N/A; Surgeon: Wilner eLigh MD; Location: [facility]COPY COLONOSCOPY DIAGNOSTIC N/A 04/07/2018 Laterality: N/A; Surgeon: Wilner Leigh MD; Location: [facility] ENDOSCOPY KNEE REPLACEMENT Right 05/2015 done at [place]--CC ARTHROPLASTY KNEE TOTAL Right 04/2015 INSERTION PICC W/ PORT PUMP 2014 power port COLONOSCOPY DIAGNOSTIC 2006 SALPINGO-OOPHORECTOMY OPEN N/A 1984 APPENDECTOMY OPEN 1983 TONSILLECTOMY ADENOIDECTOMY 1968 EGD DIAGNOSTIC 10 months ago Social History Socioeconomic History Marital status: Spouse name: Not on file Number of children: Not on file Years of education: Not on file Highest education level: Not on file Occupational History Employer: RETIRED Tobacco Use Smoking status: Former Packs/day: 0.75 Years: 35.00 Additional pack years: 0.00 Total pack years: 26.25 Types: Cigarettes Quit date: 04/23/2013 Years since quittin.2 Smokeless tobacco: Never Vaping Use Vaping Use: Never used Substance and Sexual Activity Alcohol use: Yes Alcohol/week: 2.0 standard drinks of alcohol Types: 2 Cans of beer per week Drug use: Never Sexual activity: Not Currently control/protection: Menopause Other Topics Concern Service Not Asked Blood Transfusions Not Asked Caffeine Concern Not Asked Occupational Exposure Not Asked Hobby Hazards Not Asked Sleep Concern Not Asked Stress Concern Not Asked Weight Concern Not Asked Special Diet Not Asked Back Care Not Asked Exercise Not Asked Bike Helmet Not Asked Seat Belt Not Asked Domestic Violence No Social History Narrative Not on file Social Determinants of Health Financial Resource Strain: Not on file Food Insecurity: Not on file Transportation Needs: Not on file Physical Activity: Not on file Stress: Not on file Social Connections: Not on file Intimate Partner Violence: Not on file Housing Stability: Not on file Family History Problem Relation Age of Onset Hypertension Mother Lipid Disorder Mother Depression Mother Clotting Disorder Mother hx of DVT Dementia Father Arrhythmia Father A-Fib Anesth Problems Sister post-op n/v Breast Cancer Maternal Aunt Cancer- Other Maternal Uncle melanoma Ovarian Cancer Paternal Aunt Cancer Paternal Aunt brain Lung Cancer Maternal Grandfather Hypertension Son Lipid Disorder Daughter No known problems Daughter Autism Grandson Current Outpatient Medications: Albuterol (Ventolin HFA) 108 (90 Base) MCG/ACT Aero Soln inhaler, Inhale 2 puffs every 6 hours as needed for Wheezing., Disp: 18 g, Rfl: 0 Allopurinol 100 MG tablet, Take 1 tablet by mouth daily., Disp: 90 tablet, Rfl: 3 Amoxicillin-clavulanate 875-125 MG tablet, Take 1 tablet by mouth every 12 hours for 10 days., Disp: 20 tablet, Rfl: 0 apixaban 2.5 MG tablet, 2.5 mg 2 tabs, BID- Lot # [id number] 08.15, Disp: 56 tablet, Rfl: 0 buPROPion (Wellbutrin XL) 300 MG tablet XL, Take 1 tablet by mouth every morning before breakfast.,Disp: 90 tablet, Rfl: 0 carveDILOL (Coreg) 12.5 MG tablet, Take 1 tablet by mouth 2 times daily with meals. Given by Dr. Calderon, Disp: , Rfl: Cetirizine 10 MG tablet, Take 1 tablet by mouth daily as needed for Allergies. OTC, Disp: , Rfl: Clindamycin Phos-Benzoyl Perox 1.2-3.75 % Gel, Apply 1 Application topically daily. Given by Dermatology Dr. Dejesus, Disp: , Rfl: Clopidogrel 75 MG tablet, Take 1 tablet by mouth daily., Disp: 90 tablet, Rfl: 3 cyanocobalamin 1000 MCG tablet, Take 1 tablet by mouth daily. Chew 1 tab q daily, Disp: 90 tablet, Rfl: 0 Evolocumab (Repatha SureClick) 140 MG/ML Solution Auto-injector injection, Inject 1 mL under the skin every 14 days. (Patient taking differently: Inject 1 mL under the skin every 14 days. Last dose 06/17/2023), Disp: 2 mL, Rfl: 11 fenofibrate 160 MG tablet, Take 1 tablet by mouth daily., Disp: 90 tablet, Rfl: 3 Folic acid 1 MG tablet, Take 1 tablet by mouth daily., Disp: 90 tablet, Rfl: 0 Lisinopril 5 MG tablet, Take 1 tablet by mouth daily. Cancel previous refills, Disp: 90 tablet, Rfl: 0 magnesium oxide 400 (240 Mg) MG, Take 1 tablet by mouth daily. OTC, Disp: , Rfl: Mupirocin 2 % ointment, Apply topical TID for 7 days, Disp: 30 g, Rfl: 0 Pantoprazole (Protonix) [address] tablet DR, Take 1 tablet by mouth 2 times daily (take before meals)., Disp: 180 tablet, Rfl: 0 traZODone 100 MG tablet, Take 1 tablet by mouth at bedtime., Disp: 90 tablet, Rfl: 0 triamterene-hydrochlorothiazide (Dyazide) 37.5-25 MG per capsule, Take 1 capsule by mouth daily. Cancel previous refills, Disp: 90 capsule, Rfl: 3 hydroCODone-acetaminophen 5-325 MG tablet, Take 1 tablet by mouth every 4 hours as needed for Moderate Pain for up to 3 days., Disp: 18 tablet, Rfl: 0 EXAM BP 128/72 (BP Location: Right arm, BP Position: Sitting) Pulse 82 Temp 96.8 F (36 C) (Temporal) Resp 18 Ht 1.651 m (5' 5) Wt 94.8 kg (209 lb) SpO2 97% BMI 34.78 kg/m Smoking Status Former Physical Exam Vitals and nursing note reviewed. Constitutional: General: She is not in acute distress. Appearance: Normal appearance. HENT: Head: Normocephalic and atraumatic. Mouth/Throat: Pharynx: Oropharynx is clear. No oropharyngeal exudate. Eyes: Extraocular Movements: Extraocular movements intact. Conjunctiva/sclera: Conjunctivae normal. Pupils: Pupils are equal, round, and reactive to light. Cardiovascular: Rate and Rhythm: Normal rate and regular rhythm. Pulses: Normal pulses. Heart sounds: Normal heart sounds. No murmur heard. Pulmonary: Effort: Pulmonary effort is normal. No respiratory distress. Breath sounds: Normal breath sounds. No rhonchi or rales. Abdominal: General: Bowel sounds are normal. There is no distension. Palpations: Abdomen is soft. Tenderness: There is no abdominal tenderness. There is no guarding. Genitourinary: Comments: No CVA or suprapubic tenderness Musculoskeletal: General: No swelling or tenderness. Normal range of motion. Cervical back: Normal range of motion and neck supple. No rigidity. Comments: Left 4th toe with wound that is closed with no drainage. Still with mild redness and swelling of 4th toe, mod pain on plantar palpation. Skin: General: Skin is warm and dry. Findings: No rash. Comments: LUE line in place, no complications Neurological: General: No focal deficit present. Mental Status: She is alert. Psychiatric: Mood and Affect: Mood normal. Behavior: Behavior normal. Thought Content: Thought content normal. LABS CBC Lab Results Component Value Date WBC 6.6 06/29/2023 HGB 13.2 06/29/2023 HCT 39.1 06/29/2023 PLATELET 218 06/29/2023 MCV 97.4 06/29/2023 EDIF Lab Results Component Value Date RBCDISTRIBU 14.0 06/29/2023 GRNLOCYT 43.5 09/29/2022 LYMPHOCYT 45.1 09/29/2022 MONOCYTELEC 9.2 09/29/2022 EOSINOPHILS 1.2 04/21/2023 EOSINOPHILS 0.1 04/21/2023 BASOPHILS 0.6 04/21/2023 BASOPHILS 0.0 04/21/2023 GRNLOCTYABS 3.0 11/03/2016 LYMPHOCYTABS 1.8 04/21/2023 MONOSABSOLU 0.5 11/03/2016 EOSINOPHLABS 0.09 09/29/2022 BASOPHILSABS 0.1 11/03/2016 PLATELET 218 06/29/2023 MPV 8.5 06/29/2023 EDIF Lab Results Component Value Date RBCDISTRIBU 14.0 06/29/2023 GRNLOCYT 43.5 09/29/2022 LYMPHOCYT 45.1 09/29/2022 MONOCYTELEC 9.2 09/29/2022 EOSINOPHILS 1.2 04/21/2023 EOSINOPHILS 0.1 04/21/2023 BASOPHILS 0.6 04/21/2023 BASOPHILS 0.0 04/21/2023 GRNLOCTYABS 3.0 11/03/2016 LYMPHOCYTABS 1.8 04/21/2023 MONOSABSOLU 0.5 11/03/2016 EOSINOPHLABS 0.09 09/29/2022 BASOPHILSABS 0.1 11/03/2016 PLATELET 218 06/29/2023 MPV 8.5 06/29/2023 ESR Lab Results Component Value Date RBCDISTRIBU 14.0 06/29/2023 GRNLOCYT 43.5 09/29/2022 LYMPHOCYT 45.1 09/29/2022 MONOCYTELEC 9.2 09/29/2022 EOSINOPHILS 1.2 04/21/2023 EOSINOPHILS 0.1 04/21/2023 BASOPHILS 0.6 04/21/2023 BASOPHILS 0.0 04/21/2023 GRNLOCTYABS 3.0 11/03/2016 LYMPHOCYTABS 1.8 04/21/2023 MONOSABSOLU 0.5 11/03/2016 EOSINOPHLABS 0.09 09/29/2022 BASOPHILSABS 0.1 11/03/2016 PLATELET 218 06/29/2023 MPV 8.5 06/29/2023 Lab Results Component Value Date SODIUM 133 (L) 06/29/2023 POTASSIUM 4.3 06/29/2023 CHLORIDE 100 06/29/2023 CO2 25 06/29/2023 BUN 16 06/29/2023 CREATSERUM 0.82 06/29/2023 GLUCOSE 123 (H) 06/29/2023 No results found for: CRP Lab Results Component Value Date RESULTCULT FINEGOLDIA MAGNA 07/08/2023 RESULTCULT STAPHYLOCOCCUS EPIDERMIDIS 07/08/2023 . Lab Results Component Value Date GLUCOSE 123 (H) 06/29/2023 . Lab Results Component Value Date CALCIUM 9.5 06/29/2023 Lab Results Component Value Date ALBUMIN 4.1 06/29/2023 SIUM 06/29/2023 CHLORIDE 06/29/2023 CO2 09 Lab Results Component Value Date BILITOTAL 0.9 06/29/2023 Lab Results Component Value Date BUN 16 06/29/2023 ALKPHOS 51 06/29/2023 BILITOTAL 0.9 06/29/2023 BILIDIRECT 0.1 10/22/2015 No orders to display IMAGING MRI FOOT LEFT WITHOUT CONTRAST Result Date: 06/29/2023 EXAM: MRI FOOT LEFT WITHOUT CONTRAST COMPARISON: Left foot x-rays from 06/14/2023 and left foot MRI from 05/10/2023. HISTORY: Infection in the fourth toe. Evaluate for osteomyelitis. TECHNIQUE: Multiplanar and multisequence imaging of the left foot was performed without contrast. FINDINGS: Motion artifact degrades evaluation on this study. There is mild soft tissue swelling involving the fourth toewith mild subcutaneous edema. Correlation for clinical findings of cellulitis would be helpful. There is no well-defined abscess. There is no MRI evidence of osteomyelitis. There is no low T1 signal or bony destruction in the phalanges of the fourth toe. No fracture or dislocation is evident. Thereis no metatarsal stress fracture. The tarsometatarsal alignment is anatomic. There is mild joint space narrowing and spurring involving the first metatarsophalangeal joint. Flexor and extensor tendons and the midfoot and forefoot appear intact with no focal tendon tear. There is no focal tenosynovitis. No muscle edema is identified. IMPRESSION: 1. There is mild subcutaneous edema and soft tissue swelling of the fourth toe suspicious for cellulitis. 2. No MRI evidence of osteomyelitis. 3. No focal abscess. 4. No acute or healing fracture in the foot. MRI SPINE LUMBAR WITHOUT CONTRAST Result Date: 06/20/2023 TITLE: MRI SPINE LUMBAR WITHOUT CONTRAST COMPARISON: 2021 lumbar spine MRI CLINICAL HISTORY: Low back pain radiating to the sacroiliac joints TECHNIQUE: Sagittal T1, sagittal T2 FSE, sagittal STIR, and axial T2 FSE. FINDINGS: Alignment is normal. There is no listhesis nor vertebral body height loss. The conus medullaris terminates at L1-2 and appears normal. The visualized adjacent soft suggest asmall right renal cyst. Prominent dorsal epidural fat L1-L5.. New metallic hardware traversing the left sacroiliac joint. T12-L1: Normal disc space. No stenosis L1-L2:Mild disc bulge. No significant stenosis. L2-3: Diffuse disc bulge. Left foraminal extension. Bilateral facet hypertrophy. Mild central canal and moderate left-sided foraminal narrowing L3-4: Mild disc bulge. Mild tear in left lateral annulus. Bilateral facet hypertrophy. Mild to moderate central canal and left-sided foraminal narrowing L4-5: Disc space narrowing lateral disc and osteophyte formation. Central disc protrusion. Facet hypertrophy and prominent dorsal epidural fat. This results in moderate to severe central canal and moderate foraminal narrowing L5-S1: Mild disc bulge. Bilateral facet hypertrophy. There is no significant central canal and [id number] left-sided foraminal narrowing IMPRESSION: MODERATE MULTILEVEL DEGENERATIVE CHANGES OF THE LUMBAR SPINE PROMINENT DORSAL EPIDURAL FAT L1-L5 L2-3: DIFFUSE DISC BULGE WITH LEFT FORAMINAL DISC PROTRUSION SMALL ANNULAR TEAR L3-4 MODERATE TO SEVERE MULTIFACTORIAL CENTRAL STENOSIS L4-5 FACET HYPERTROPHY LOWER 2 LUMBAR LEVELS XR FOOT LEFT 3 VIEWS Result Date: 06/14/2023 EXAM: XR FOOT LEFT 3 VIEWS HISTORY: left 4th toe infection COMPARISON: 05/02/2023. FINDINGS: 3 weightbearing views were submitted. Again the fourth toe appears swollen. Fracture, opaque foreign body or bony erosion not identified. Spurs present plantar and posterior calcaneus. IMPRESSION: 1. Again there is soft tissue swelling fourth toe, osseous abnormality not identified. 2. Calcaneal spurs. XR SPINE LUMBAR W BENDING Result Date: 06/07/2023 EXAM: XR SPINE LUMBAR W BENDING HISTORY: Spondylosis of lumbar region without myelopathy or radiculopathy COMPARISON: None. TECHNIQUE: 5 views with flexion and extension Findings/impression: Satisfactory alignment. Maintained vertebral body heights. Multilevel disc disease and facet arthropathy of L3-S1. Intact hardware. No acute fracture or subluxation. Left-sided sacroiliac fixation. Intact hardware. Diagnosis/Plan: There are no diagnoses linked to this encounter. Complex left 4th toe infection -MRI 05/11 and 06/29 does not show clear osteomyelitis but does have soft tissue swelling -culture from 4th toe 05/17 with Staphylococcus epidermidis for thigh overgrowth only likely a contaminant; 05/05 negative; 05/02 with finegoldia -history of MRSA nares 04/21 negative -Keflex x 2, cefixime, levaquin and doxycycline course without clearance per history -concern for a deep-seated infection that is not being resolved with short courses of oral therapy -s/p operative procedure 07/08 with S epi and finegoldia. -there is no inciting trauma or events preceding this infection that the patient recalls including no bite injuries, soil, pedicures or other inciting events to suggest unusual organisms but this remains in the differential -Operative 07/08 finding no pus and MRI negative for OM; did debride down to tendon; specimens for bacterial aerobic and anaerobic showed S. Epi and Finegoldia on 07/08 -suspect the staph epi is not a true cause of a deep-seated infection given lack of hardware -S/p Augmentin 875 mg twice daily for the finegoldia, 07/13-07/24 -plan at least a three-week treatment course but possibly longer -fungal and afb cultures 07/29, NGTD -Recurrent I&D for abscess on 07/21, cx negative -MRI: Worsening subcutaneous edema/cellulitis over the left fourth digit with new focal collection/abscess laterally. No osteomyelitis. -despite Augmentin and Zyvox as well as prior antibiotics including doxycycline, Levaquin and cephalosporins she continues to have a purulent abscess of her toe. -uric acid is normal and no history of gout per her report; consider noninfectious causes but none clear - she does have history of cancer but this is remote would be an odd presentation -plan to discuss with 2nd infectious disease provider, recommended PCR to be done -TB and Fungitell of blood negative -Repeat cultures purulence 07/29 for AFB and fungal cultures, NGTD -patient had I&D on 08/11 with culture negative by Podiatry but no PCR; path with hyperkeratosis with possible trauma -s/p PICC and ertapenem since 07/29-08/29 and line removed -Watch, if ID again then will need further studies including repeat imaging and pcr and deep pathology -Toe with still tenderness and mildly elevated crp. Unclear cause, will closely follow. Hx of yeast ID -S/p tx, resolved Hx of DM +-patient denies a history of diabetes but this is in her record and states that she is not currently on any management. Previous BMP shows mildly elevated glucose. -a1c 5.5, 5.8 - normal range Healthcare maintenance -history of prior flu shots, would recommend flu shot this fall and s/p 08/25/23 given -history of pneumococcal conjugate and polysaccharide vaccines -history of tetanus vaccine 2018 -recommend keeping up-to-date on all recommended vaccines Elevated CRP -Fluctuating, did have sinus infection which may have contributed -CRP 8.67, 9.2 -ESR normal -CRP still mildly elevated Left knee degenerative disease -operative management by Orthopedics is on hold pending resolution of toe infection Return to clinic in 21 days, sooner with new or evolving problems. 15 min of care Please note Portions of this note utilized [employer] and Tinder dictation software, please excuse any typographical or grammatical errors. documented in this [facility] [place]10-31-2023 History of Present illness Narrative* Graciela Ramirez LPN - 08/23/2023 2:10 PM EDT Nurse Note: Review of Systems All other systems reviewed and are negative. Nursing Assessment: Physical Exam * Dawn Uriarte DPM - 08/23/2023 2:10 PM EDT Patient Elena Galeano Date: 08/23/2023 Subjective: Elena is here for follow up of left 4th toe infection. Last visit a piece of tissue came out. She notes she has a little soreness, but overall the toe is feeling good. History She did get her PICC and is getting antibiotics per dr. Shipley. She had her MRI as well. She feels like the toe is filling with fluid again. History She goes to see dr. shipley tomorrow. Waiting on approval for PICC. History She is on updated antibiotics per dr. Shipley. She notes she is doing ok. She is on augmentin History that the toe is improving, but something is happening on the underside of the toe. History of the left 4th toe. She notes that she is on her 2nd round of keflex. She has had an xray a few days ago and some purulence drained from the toe a few days ago. A culture is pending. She notes that the toe has been bad for 3-4 months, but she really has had problems on and off for about a month. She does not remember any kind of trauma. Allergies Allergen Reactions Nsaids Has CKD-3a, and Anemia Current Outpatient Medications Medication Sig Albuterol (Ventolin HFA) 108 (90 Base) MCG/ACT Aero Soln inhaler Inhale 2 puffs every 6 hours as needed for Wheezing. Allopurinol 100 MG tablet Take 1 tablet by mouth daily. apixaban 2.5 MG tablet 2.5 mg 2 tabs, BID- Lot # [id number] - 08.15 buPROPion (Wellbutrin XL) 300 MG tablet XL Take 1 tablet by mouth every morning before breakfast. carveDILOL (Coreg) 12.5 MG tablet Take 1 tablet by mouth 2 times daily with meals. Given by Dr. Calderon Cetirizine 10 MG tablet Take 1 tablet by mouth daily as needed for Allergies. OTC Clindamycin Phos-Benzoyl Perox 1.2-3.75 % Gel Apply 1 Application topically daily. Given by Dermatology Dr. Dejesus Clopidogrel 75 MG tablet Take 1 tablet by mouth daily. cyanocobalamin 1000 MCG tablet Take 1 tablet by mouth daily. Chew 1 tab q daily Evolocumab (Repatha Fabiaonick) 140 MG/ML Solution Auto-injector injection Inject 1 mL under the skin every 14 days. (Patient taking differently: Inject 1 mL under the skin every 14 days. Last dose 06/17/2023) fenofibrate 160 MG tablet Take 1 tablet by mouth daily. Folic acid 1 MG tablet Take 1 tablet by mouth daily. Lisinopril 5 MG tablet Take 1 tablet by mouth daily. Cancel previous refills magnesium oxide 400 (240 Mg) MG Take 1 tablet by mouth daily. OTC Mupirocin 2 % ointment Apply topical TID for 7 days Pantoprazole (Protonix) [address] tablet DR Take 1 tablet by mouth 2 times daily (take before meals). traZODone 100 MG tablet Take 1 tablet by mouth at bedtime. triamterene-hydrochlorothiazide (Dyazide) 37.5-25 MG per capsule Take 1 capsule by mouth daily. Cancel previous refills Past Medical History: Diagnosis Date A-fib Anemia low Fe Arrhythmia Arthritis ASCUS of cervix with negative high risk HPV Asthma not asthma B12 deficiency Carotid stenosis, bilateral-Right 30%, and left 60% Central retinal artery occlusion of left eye CKD (chronic kidney disease) stage 3, GFR 30-59 ml/min-3a patient denies CLL (chronic lymphocytic leukemia) 2011 [id number] on 09-30-2020 Depression Diffuse non-Hodgkin's lymphoma chemotherapy Folate deficiency GERD (gastroesophageal reflux disease) Gout pt denies Hiatal hernia pt denies Hyperglycemia Hyperlipidemia LDL goal <70 Hypertension Hyponatremia Liver disease fatty liver Non-Hodgkin lymphoma 2012 in remission PERCY (obstructive sleep apnea) PVC's (premature ventricular contractions) 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 (blindness) Past Surgical History: Procedure Laterality Date I&D BURSA FOOT Left 07/08/2023 Laterality: Left; Surgeon: Dawn Uriarte DPM; Location: [facility] OR INJECTION NERVE OTHER PERIPHERAL Left 12/16/2022 Laterality: Left; Surgeon: Isreal Sigala MD; Location: [facility] OR GUIDANCE FLUOROSCOPIC NEEDLE OR CATHETER PLACEMENT FOR SPINE INJECTION ADD-ON PX Left 12/16/2022 Laterality: Left; Surgeon: Isreal Sigala MD; Location: [facility] OR SUSPENSION URETHRA/URETHROVESICAL FEMALE OPEN W/ SYNTHETIC MATERIAL (SLING) Midline 08/31/2022 Laterality: Midline; Surgeon: Dariusz Rangel MD; Location: [facility] OR CYSTOURETHROSCOPY W/ DILATION BLADDER Midline 08/31/2022 Laterality: Midline; Surgeon: Dariusz Rangel MD; Location: [facility] OR COLPORRHAPHY ANTEROPOSTERIOR REPAIR CYSTOCELE & RECTOCELE Midline 08/31/2022 Laterality: Midline; Surgeon: Dariusz Rangel MD; Location: [facility] OR ARTHRODESIS SACROILIAC JOINT MINIMALLY INVASIVE W/ TRANSFIXING DEVICE Left 06/17/2022 Laterality: Left; Surgeon: Isreal Sigala MD; Location: [facility] OR GUIDANCE FLUOROSCOPIC NEEDLE OR CATHETER PLACEMENT FOR SPINE INJECTION ADD-ON PX Left 06/17/2022 Laterality: Left; Surgeon: Isreal Sigala MD; Location: [facility] OR EGD W/ DILATION BALLOON N/A 12/01/2021 Laterality: N/A; Surgeon: Indra Parrish DO; Location: [facility]OSCOPY SHOULDER ARTHROSCOPY Left 06/18/2021 REMOVAL CENTRAL VENOUS ACCESS DEVICE TUNNELED W/ PORT PUMP Left 09/13/2019 Laterality: Left; Surgeon: Eduardo Muñoz MD; Location: [facility] INTERVENTIONAL RADIOLOGY (VIR) EGD W/ DILATION BALLOON N/A 06/30/2018 Laterality: N/A; Surgeon: Indra Parrish DO; Location: [facility]OS[facility] EGD DIAGNOSTIC N/A 04/07/2018 Laterality: N/A; Surgeon: Wilner Leigh MD; Location: [facility] COLONOSCOPY DIAGNOSTIC N/A 04/07/2018 Laterality: N/A; Surgeon: Wilner Leigh MD; Location: [facility]OS[facility] KNEE REPLACEMENT Right 05/2015 done at [place]--CC ARTHROPLASTY KNEE TOTAL Right 04/2015 INSERTION PICC W/ PORT PUMP 2015 power port COLONOSCOPY DIAGNOSTIC 2007 SALPINGO-OOPHORECTOMY OPEN N/A 1984 APPENDECTOMY OPEN 1984 TONSILLECTOMY ADENOIDECTOMY 1968 EGD DIAGNOSTIC 10 months ago Social History Occupational History Employer: RETIRED Tobacco Use Smoking status: Former Packs/day: 0.75 Years: 35.00 Additional pack years: 0.00 Total pack years: 26.25 Types: Cigarettes Quit date: 04/23/2013 Years since quittin.3 Smokeless tobacco: Never Vaping Use Vaping Use: Never used Substance and Sexual Activity Alcohol use: Yes Alcohol/week: 2.0 standard drinks of alcohol Types: 2 Cans of beer per week Drug use: Never Sexual activity: Not Currently control/protection: Menopause ROS: Review of Systems Nurse Note: Review of Systems All other systems reviewed and are negative. Nursing Assessment: Physical Exam Objective: Vitals: 08/23/23 1337 BP: 122/64 Objective: Vascular: Dorsalis pedis and posterior tibial pulses are readilly palpable and graded at 2/4 left. Dermatological: Left 4th toe with resolved swelling and no erythema. MRI FOOT LEFT WITHOUT CONTRAST Result Date: 05/10/2023 EXAM: MRI FOOT LEFT WITHOUT CONTRAST HISTORY: For stress swelling and abscess. Rule out osteomyelitis COMPARISON: None. TECHNIQUE: Multiplanar MRI of left foot was performed without contrast in sagittal, coronal and axial planes using T1, T2 and STIR pulsing sequences FINDINGS: Bony structures of left foot including visualized tarsal bones, metatarsals and phalanges demonstrate no evidence of fracture or contusion. No dislocation is seen. Small joint effusion is seen in the first metatarsophalangeal joint. Subtle marrow edema is suspected involving the fourth distal phalanx without bony destructive changes or abnormal T1 signal. No cortical disruption is seen to suggest osteomyelitis. The flexor and extensor tendons appear intact. Visualized plantar fascia appears intact. Collateral ligaments appear intact. Lisfranc ligament is visualized and appears intact. Evidence of superficial veindeep soft tissue edema involving fourth toe without focal collections. Muscles demonstrate normal signal. IMPRESSION: Soft tissue edema 4th distal phalanx without T1 abnormality or cortical disruption to suggest osteomyelitis. XR FOOT LEFT 3 VIEWS Result Date: 05/02/2023 EXAM: XR FOOT LEFT 3 VIEWS HISTORY: infection, redness, drainage of left 4th toe. COMPARISON: None available. FINDINGS: 3 views of the left foot were obtained. These were AP, oblique and lateral views weightbearing I do not specifically see any evidence of fracture or dislocation. There are no peria rticular calcifications, erosions or obvious signs of osteomyelitis. No soft tissue air is seen. The fourth digit appears prominently swollen IMPRESSION: 1. Prominent soft tissue swelling of the fourth digit of the left foot. 2. I do not seeany evidence of fracture, dislocation, advanced arthropathy or osteomyelitis. Assessment: Elena was seen today for ingrown toenail and follow-up. Diagnoses and all orders for this visit: Cellulitis and abscess of toe of left foot acute complicated, limb threatening diagnosis Plan: Patient was seen and evaluated today The toe looks the best it has today. I would recommend discontinue the antibiotics No dressing Path report scanned and put in media file Follow up in 4 weeks for final follow up [facility] History of Present illness Narrative* Jenise Hodges - 08/15/2023 11:30 AM EDT Review of Systems A complete review of systems are negative except those consistent with HPI No fevers, chills or sweats No cough, chest pain No dysphagia, odynophagia No abdominal pain, nausea, vomiting, diarrhea No dysuria, frequency, hematuria No headache, dizziness, focal neurologic complaints No ear pain No sinus pain No rash No weight loss No joint or muscular pain Recent travel history? No * Monse Shipley MD - 08/15/2023 11:30 AM EDT HPI Elena Galeano 63 y.o. female presents today for Toe Pain (4th toe on left foot from great toe. Dr. Uriarte debrided abscess on Sunday 07/15. No ATBs prescribed from him. ) Patient states ID consult appointment in June of 2023 that she is longstanding history of for several months of a left toe infection. She denies any specific trauma or inciting event that started this all. Past medical history includes stroke, AFib, left eye blindness, CLL and diffuse non-Hodgkin's lymphoma history status post chemotherapy s/p 10 yrs ago, GERD, hyperlipidemia, hypertension, DMII per record, fatty liver disease, obstructive sleep apnea, obesity, anemia, history of COVID. 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 Blackwood. History of former tobacco use, not current. No significant alcohol use, occasional. No illicit abx. No animal bites/scratches, no trauma noted, no barefoot outdoor walking. No hx of gout Patient was seen by Podiatry 05/05/2023 due to ingrown toenail of the 4th left toe ongoing issues for about 3 months at that time per notes with 2 courses of Keflex given at that time. Podiatry diagnosed with a patient with concerns for abscess and cellulitis of the distal 4th toe on 05/05 and MRI was ordered but was negative on 05/10 for deeper infection at that time. Patient was treated with local mupirocin and antibiotic oral course of cefixime. Patient was then treated in the May timeframe with a course of Levaquin per Podiatry and then a course of doxycycline for 14 days new x-ray ordered showing soft tissue swelling on 06/14 without clear bony disease. Patient was then seen on 06/28by Podiatry and a repeat MRI was order due to concern for osteomyelitis of the 4th toe per Podiatryalough radiology report was negative from 06/29. Hx significant for recurrent purulence reported and patient was referred at this visit to Infectious Disease for IV antibiotics as well as plans forsurgical debridement with an incision and drainage pending for 07/08 with consideration of hyperbaric treatment as well noted No known allergies to antibiotics noted ID consult visit 07/04/2023 Patient denies any fevers or chills. Does note some sweats. No systemic symptoms otherwise. Denies any significant left toe pain. She states that there is a pocket in her plantar area that she believes is collecting fluid and then she has intermittent drainage from this area. ID clinic follow up 07/13, she is status post surgery by Podiatry on 07/08 for incision and drainageof left 4th toe with abscess and cellulitis reported. There was no gross purulence for operative report and cultures were taken. Patient here for follow up of culture data. The culture data was obtained yesterday and plans for adjustment of antibiotics today. Patient denies any fevers chills or sweats. Culture shows Staphylococcus epidermidis rare which is likely a contaminant, resistant to clindamycin and penicillin but otherwise sensitive. Patient also grew Finegoldia. AFB and fungal stains/cultures are pending. Patient's foot is currently dressed, no significant pain noted. No other complai nts reported F/up 07/18, on augmentin. Tolerating well. Some left 4th toe pain, sutures in place. F/up podiatry today. No f/c/s. No other symptoms on ROS. Patient was started on Augmentin 9/20 but not note any significant improvement in pain or discomfort. Some blood on drainage but no other discharge and no purulence noted. No tracking cellulitis. ID clinic 07/22, messaged by podiatry to see patient today for iv abx as new abscess formed again on4th toe and I&D again on 07/21 with new cx taken. NO inciting event and no pedicures of recent. No trauma. ID clinic 07/29, for f/up visit. Ongoing drainage pus reported. No pain. No f/c/s. On po augmentinand zyvox, already these well with some minimum diarrhea of 1-2 stools a day. However purulence of left 4th toe continues despite oral antibiotics with intermittent purulent drainage from both dorsaland lateral aspects. Patient notes no other symptoms or toe involvement. Had MRI today which shows abscess but no osteomyelitis. Still no word from insurance about approving home IV infusion. Saw Podiatry yesterday. Infectious disease clinic follow up. Patient was seen by Podiatry on 08/11 with recurrent issues ofswelling and I&D found gelatinous material was removed. Cultures negative. Patient tolerating ertapenem. Patient feels that her toe is improved today. Denies any side effects of the central line or antibiotics reported. No fevers or chills. ROS Review of Systems A complete review of systems are negative except those consistent with HPI No fevers, chills or sweats No cough, chest pain No dysphagia, odynophagia No abdominal pain, nausea, vomiting, diarrhea No dysuria, frequency, hematuria No headache, dizziness, focal neurologic complaints No ear pain No sinus pain No rash No weight loss No joint or muscular pain Recent travel history? No HISTORY/ALLERGIES/MEDS Allergies Allergen Reactions Nsaids Has CKD-3a, and Anemia Past Medical History: Diagnosis Date A-fib Anemia low Fe Arrhythmia Arthritis ASCUS of cervix with negative high risk HPV Asthma not asthma B12 deficiency Carotid stenosis, bilateral-Right 30%, and left 60% Central retinal artery occlusion of left eye CKD (chronic kidney disease) stage 3, GFR 30-59 ml/min-3a patient denies CLL (chronic lymphocytic leukemia) 2011 [id number] on 09-30-2020 Depression Diffuse non-Hodgkin's lymphoma chemotherapy Folate deficiency GERD (gastroesophageal reflux disease) Gout pt denies Hiatal hernia pt denies Hyperglycemia Hyperlipidemia LDL goal <70 Hypertension Hyponatremia Liver disease fatty liver Non-Hodgkin lymphoma 2012 in remission PERCY (obstructive sleep apnea) PVC's (premature ventricular contractions) 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 (blindness) Past Surgical History: Procedure Laterality Date I&D BURSA FOOT Left 07/08/2023 Laterality: Left; Surgeon: Dawn Uriarte DPM; Location: [facility] OR INJECTION NERVE OTHER PERIPHERAL Left 12/16/2022 Laterality: Left; Surgeon: Isreal Sigala MD; Location: [facility] OR GUIDANCE FLUOROSCOPIC NEEDLE OR CATHETER PLACEMENT FOR SPINE INJECTION ADD-ON PX Left 12/16/2022 Laterality: Left; Surgeon: Isreal Sigala MD; Location: [facility] OR SUSPENSION URETHRA/URETHROVESICAL FEMALE OPEN W/ SYNTHETIC MATERIAL (SLING) Midline 08/31/2022 Laterality: Midline; Surgeon: Dariusz Rangel MD; Location: [facility] OR CYSTOURETHROSCOPY W/ DILATION BLADDER Midline 08/31/2022 Laterality: Midline; Surgeon: Dariusz Rangel MD; Location: [facility] OR COLPORRHAPHY ANTEROPOSTERIOR REPAIR CYSTOCELE & RECTOCELE Midline 08/31/2022 Laterality: Midline; Surgeon: Dariusz Rangel MD; Location: [facility] OR ARTHRODESIS SACROILIAC JOINT MINIMALLY INVASIVE W/ TRANSFIXING DEVICE Left 06/17/2022 Laterality: Left; Surgeon: Isreal Sigala MD; Location: [facility] OR GUIDANCE FLUOROSCOPIC NEEDLE OR CATHETER PLACEMENT FOR SPINE INJECTION ADD-ON PX Left 06/17/2022 Laterality: Left; Surgeon: Isreal Sigala MD; Location: [facility] OR EGD W/ DILATION BALLOON N/A 12/01/2021 Laterality: N/A; Surgeon: Indra Parrish DO; Location: [facility] SHOULDER ARTHROSCOPY Left 06/18/2021 REMOVAL CENTRAL VENOUS ACCESS DEVICE TUNNELED W/ PORT PUMP Left 09/13/2019 Laterality: Left; Surgeon: Eduardo Muñoz MD; Location: [facility] (VIR) EGD W/ DILATION BALLOON N/A 06/30/2018 Laterality: N/A; Surgeon: Indra Parrish DO; Location: [facility] EGD DIAGNOSTIC N/A 04/07/2018 Laterality: N/A; Surgeon: Winler Leigh MD; Location: [facility] COLONOSCOPY DIAGNOSTIC N/A 04/07/2018 Laterality: N/A; Surgeon: Wilner Leigh MD; Location: [facility] KNEE REPLACEMENT Right 05/2015 done at [place]--CC ARTHROPLASTY KNEE TOTAL Right 04/2015 INSERTION PICC W/ PORT PUMP 2014 power port COLONOSCOPY DIAGNOSTIC 2006 SALPINGO-OOPHORECTOMY OPEN N/A 1983 APPENDECTOMY OPEN 1983 TONSILLECTOMY ADENOIDECTOMY 1967 EGD DIAGNOSTIC 10 months ago Social History Socioeconomic History Marital status: Spouse name: Not on file Number of children: Not on file Years of education: Not on file Highest education level: Not on file Occupational History Employer: RETIRED Tobacco Use Smoking status: Former Packs/day: 0.75 Years: 35.00 Additional pack years: 0.00 Total pack years: 26.25 Types: Cigarettes Quit date: 04/23/2013 Years since quittin.2 Smokeless tobacco: Never Vaping Use Vaping Use: Never used Substance and Sexual Activity Alcohol use: Yes Alcohol/week: 2.0 standard drinks of alcohol Types: 2 Cans of beer per week Drug use: Never Sexual activity: Not Currently control/protection: Menopause Other Topics Concern Service Not Asked Blood Transfusions Not Asked Caffeine Concern Not Asked Occupational Exposure Not Asked Hobby Hazards Not Asked Sleep Concern Not Asked Stress Concern Not Asked Weight Concern Not Asked Special Diet Not Asked Back Care Not Asked Exercise Not Asked Bike Helmet Not Asked Seat Belt Not Asked Domestic Violence No Social History Narrative Not on file Social Determinants of Health Financial Resource Strain: Not on file Food Insecurity: Not on file Transportation Needs: Not on file Physical Activity: Not on file Stress: Not on file Social Connections: Not on file Intimate Partner Violence: Not on file Housing Stability: Not on file Family History Problem Relation Age of Onset Hypertension Mother Lipid Disorder Mother Depression Mother Clotting Disorder Mother hx of DVT Dementia Father Arrhythmia Father A-Fib Anesth Problems Sister post-op n/v Breast Cancer Maternal Aunt Cancer- Other Maternal Uncle melanoma Ovarian Cancer Paternal Aunt Cancer Paternal Aunt brain Lung Cancer Maternal Grandfather Hypertension Son Lipid Disorder Daughter No known problems Daughter Autism Grandson Current Outpatient Medications: Albuterol (Ventolin HFA) 108 (90 Base) MCG/ACT Aero Soln inhaler, Inhale 2 puffs every 6 hours as needed for Wheezing., Disp: 18 g, Rfl: 0 Allopurinol 100 MG tablet, Take 1 tablet by mouth daily., Disp: 90 tablet, Rfl: 3 Amoxicillin-clavulanate 875-125 MG tablet, Take 1 tablet by mouth every 12 hours for 10 days., Disp: 20 tablet, Rfl: 0 apixaban 2.5 MG tablet, 2.5 mg 2 tabs, BID- Lot # [id number] 08.15, Disp: 56 tablet, Rfl: 0 buPROPion (Wellbutrin XL) 300 MG tablet XL, Take 1 tablet by mouth every morning before breakfast.,Disp: 90 tablet, Rfl: 0 carveDILOL (Coreg) 12.5 MG tablet, Take 1 tablet by mouth 2 times daily with meals. Given by Dr. Calderon, Disp: , Rfl: Cetirizine 10 MG tablet, Take 1 tablet by mouth daily as needed for Allergies. OTC, Disp: , Rfl: Clindamycin Phos-Benzoyl Perox 1.2-3.75 % Gel, Apply 1 Application topically daily. Given by Dermatology Dr. Dejesus, Disp: , Rfl: Clopidogrel 75 MG tablet, Take 1 tablet by mouth daily., Disp: 90 tablet, Rfl: 3 cyanocobalamin 1000 MCG tablet, Take 1 tablet by mouth daily. Chew 1 tab q daily, Disp: 90 tablet, Rfl: 0 Evolocumab (Repatha SureClick) 140 MG/ML Solution Auto-injector injection, Inject 1 mL under the skin every 14 days. (Patient taking differently: Inject 1 mL under the skin every 14 days. Last dose 06/17/2023), Disp: 2 mL, Rfl: 11 fenofibrate 160 MG tablet, Take 1 tablet by mouth daily., Disp: 90 tablet, Rfl: 3 Folic acid 1 MG tablet, Take 1 tablet by mouth daily., Disp: 90 tablet, Rfl: 0 Lisinopril 5 MG tablet, Take 1 tablet by mouth daily. Cancel previous refills, Disp: 90 tablet, Rfl: 0 magnesium oxide 400 (240 Mg) MG, Take 1 tablet by mouth daily. OTC, Disp: , Rfl: Mupirocin 2 % ointment, Apply topical TID for 7 days, Disp: 30 g, Rfl: 0 Pantoprazole (Protonix) [address] tablet DR, Take 1 tablet by mouth 2 times daily (take before meals)., Disp: 180 tablet, Rfl: 0 traZODone 100 MG tablet, Take 1 tablet by mouth at bedtime., Disp: 90 tablet, Rfl: 0 triamterene-hydrochlorothiazide (Dyazide) 37.5-25 MG per capsule, Take 1 capsule by mouth daily. Cancel previous refills, Disp: 90 capsule, Rfl: 3 hydroCODone-acetaminophen 5-325 MG tablet, Take 1 tablet by mouth every 4 hours as needed for Moderate Pain for up to 3 days., Disp: 18 tablet, Rfl: 0 EXAM BP 128/72 (BP Location: Right arm, BP Position: Sitting) Pulse 82 Temp 96.8 F (36 C) (Temporal) Resp 18 Ht 1.651 m (5' 5) Wt 94.8 kg (209 lb) SpO2 97% BMI 34.78 kg/m Smoking Status Former Physical Exam Vitals and nursing note reviewed. Constitutional: General: She is not in acute distress. Appearance: Normal appearance. HENT: Head: Normocephalic and atraumatic. Mouth/Throat: Pharynx: Oropharynx is clear. No oropharyngeal exudate. Eyes: Extraocular Movements: Extraocular movements intact. Conjunctiva/sclera: Conjunctivae normal. Pupils: Pupils are equal, round, and reactive to light. Cardiovascular: Rate and Rhythm: Normal rate and regular rhythm. Pulses: Normal pulses. Heart sounds: Normal heart sounds. No murmur heard. Pulmonary: Effort: Pulmonary effort is normal. No respiratory distress. Breath sounds: Normal breath sounds. No rhonchi or rales. Abdominal: General: Bowel sounds are normal. There is no distension. Palpations: Abdomen is soft. Tenderness: There is no abdominal tenderness. There is no guarding. Genitourinary: Comments: No CVA or suprapubic tenderness Musculoskeletal: General: No swelling or tenderness. Normal range of motion. Cervical back: Normal range of motion and neck supple. No rigidity. Comments: Left 4th toe with wound that is closing with no drainage. Toe is less swollen with no warmth or significant erythema. Minimal pain on manipulation Skin: General: Skin is warm and dry. Findings: No rash. Neurological: General: No focal deficit present. Mental Status: She is alert. Psychiatric: Mood and Affect: Mood normal. Behavior: Behavior normal. Thought Content: Thought content normal. LABS CBC Lab Results Component Value Date WBC 6.6 06/29/2023 HGB 13.2 06/29/2023 HCT 39.1 06/29/2023 PLATELET 218 06/29/2023 MCV 97.4 06/29/2023 EDIF Lab Results Component Value Date RBCDISTRIBU 14.0 06/29/2023 GRNLOCYT 43.5 09/29/2022 LYMPHOCYT 45.1 09/29/2022 MONOCYTELEC 9.2 09/29/2022 EOSINOPHILS 1.2 04/21/2023 EOSINOPHILS 0.1 04/21/2023 BASOPHILS 0.6 04/21/2023 BASOPHILS 0.0 04/21/2023 GRNLOCTYABS 3.0 11/03/2016 LYMPHOCYTABS 1.8 04/21/2023 MONOSABSOLU 0.5 11/03/2016 EOSINOPHLABS 0.09 09/29/2022 BASOPHILSABS 0.1 11/03/2016 PLATELET 218 06/29/2023 MPV 8.5 06/29/2023 EDIF Lab Results Component Value Date RBCDISTRIBU 14.0 06/29/2023 GRNLOCYT 43.5 09/29/2022 LYMPHOCYT 45.1 09/29/2022 MONOCYTELEC 9.2 09/29/2022 EOSINOPHILS 1.2 04/21/2023 EOSINOPHILS 0.1 04/21/2023 BASOPHILS 0.6 04/21/2023 BASOPHILS 0.0 04/21/2023 GRNLOCTYABS 3.0 11/03/2016 LYMPHOCYTABS 1.8 04/21/2023 MONOSABSOLU 0.5 11/03/2016 EOSINOPHLABS 0.09 09/29/2022 BASOPHILSABS 0.1 11/03/2016 PLATELET 218 06/29/2023 MPV 8.5 06/29/2023 ESR Lab Results Component Value Date RBCDISTRIBU 14.0 06/29/2023 GRNLOCYT 43.5 09/29/2022 LYMPHOCYT 45.1 09/29/2022 MONOCYTELEC 9.2 09/29/2022 EOSINOPHILS 1.2 04/21/2023 EOSINOPHILS 0.1 04/21/2023 BASOPHILS 0.6 04/21/2023 BASOPHILS 0.0 04/21/2023 GRNLOCTYABS 3.0 11/03/2016 LYMPHOCYTABS 1.8 04/21/2023 MONOSABSOLU 0.5 11/03/2016 EOSINOPHLABS 0.09 09/29/2022 BASOPHILSABS 0.1 11/03/2016 PLATELET 218 06/29/2023 MPV 8.5 06/29/2023 Lab Results Component Value Date SODIUM 133 (L) 06/29/2023 POTASSIUM 4.3 06/29/2023 CHLORIDE 100 06/29/2023 CO2 25 06/29/2023 BUN 16 06/29/2023 CREATSERUM 0.82 06/29/2023 GLUCOSE 123 (H) 06/29/2023 No results found for: CRP Lab Results Component Value Date RESULTCULT FINEGOLDIA MAGNA 07/08/2023 RESULTCULT STAPHYLOCOCCUS EPIDERMIDIS 07/08/2023 . Lab Results Component Value Date GLUCOSE 123 (H) 06/29/2023 . Lab Results Component Value Date CALCIUM 9.5 06/29/2023 Lab Results Component Value Date ALBUMIN 4.1 06/29/2023 SIUM 06/29/2023 CHLORIDE 06/29/2023 CO2 09 Lab Results Component Value Date BILITOTAL 0.9 06/29/2023 Lab Results Component Value Date BUN 16 06/29/2023 ALKPHOS 51 06/29/2023 BILITOTAL 0.9 06/29/2023 BILIDIRECT 0.1 10/22/2015 No orders to display IMAGING MRI FOOT LEFT WITHOUT CONTRAST Result Date: 06/29/2023 EXAM: MRI FOOT LEFT WITHOUT CONTRAST COMPARISON: Left foot x-rays from 06/14/2023 and left foot MRI from 05/10/2023. HISTORY: Infection in the fourth toe. Evaluate for osteomyelitis. TECHNIQUE: Multiplanar and multisequence imaging of the left foot was performed without contrast. FINDINGS: Motion artifact degrades evaluation on this study. There is mild soft tissue swelling involving the fourth toewith mild subcutaneous edema. Correlation for clinical findings of cellulitis would be helpful. There is no well-defined abscess. There is no MRI evidence of osteomyelitis. There is no low T1 signal or bony destruction in the phalanges of the fourth toe. No fracture or dislocation is evident. Thereis no metatarsal stress fracture. The tarsometatarsal alignment is anatomic. There is mild joint space narrowing and spurring involving the first metatarsophalangeal joint. Flexor and extensor tendons and the midfoot and forefoot appear intact with no focal tendon tear. There is no focal tenosynovitis. No muscle edema is identified. IMPRESSION: 1. There is mild subcutaneous edema and soft tissue swelling of the fourth toe suspicious for cellulitis. 2. No MRI evidence of osteomyelitis. 3. No focal abscess. 4. No acute or healing fracture in the foot. MRI SPINE LUMBAR WITHOUT CONTRAST Result Date: 06/20/2023 TITLE: MRI SPINE LUMBAR WITHOUT CONTRAST COMPARISON: 2021 lumbar spine MRI CLINICAL HISTORY: Low back pain radiating to the sacroiliac joints TECHNIQUE: Sagittal T1, sagittal T2 FSE, sagittal STIR, and axial T2 FSE. FINDINGS: Alignment is normal. There is no listhesis nor vertebral body height loss. The conus medullaris terminates at L1-2 and appears normal. The visualized adjacent soft suggest asmall right renal cyst. Prominent dorsal epidural fat L1-L5.. New metallic hardware traversing the left sacroiliac joint. T12-L1: Normal disc space. No stenosis L1-L2:Mild disc bulge. No significant stenosis. L2-3: Diffuse disc bulge. Left foraminal extension. Bilateral facet hypertrophy. Mild central canal and moderate left-sided foraminal narrowing L3-4: Mild disc bulge. Mild tear in left lateral annulus. Bilateral facet hypertrophy. Mild to moderate central canal and left-sided foraminal narrowing L4-5: Disc space narrowing lateral disc and osteophyte formation. Central disc protrusion. Facet hypertrophy and prominent dorsal epidural fat. This results in moderate to severe central canal and moderate foraminal narrowing L5-S1: Mild disc bulge. Bilateral facet hypertrophy. There is no significant central canal and [id number] left-sided foraminal narrowing IMPRESSION: MODERATE MULTILEVEL DEGENERATIVE CHANGES OF THE LUMBAR SPINE PROMINENT DORSAL EPIDURAL FAT L1-L5 L2-3: DIFFUSE DISC BULGE WITH LEFT FORAMINAL DISC PROTRUSION SMALL ANNULAR TEAR L3-4 MODERATE TO SEVERE MULTIFACTORIAL CENTRAL STENOSIS L4-5 FACET HYPERTROPHY LOWER 2 LUMBAR LEVELS XR FOOT LEFT 3 VIEWS Result Date: 06/14/2023 EXAM: XR FOOT LEFT 3 VIEWS HISTORY: left 4th toe infection COMPARISON: 05/02/2023. FINDINGS: 3 weightbearing views were submitted. Again the fourth toe appears swollen. Fracture, opaque foreign body or bony erosion not identified. Spurs present plantar and posterior calcaneus. IMPRESSION: 1. Again there is soft tissue swelling fourth toe, osseous abnormality not identified. 2. Calcaneal spurs. XR SPINE LUMBAR W BENDING Result Date: 06/07/2023 EXAM: XR SPINE LUMBAR W BENDING HISTORY: Spondylosis of lumbar region without myelopathy or radiculopathy COMPARISON: None. TECHNIQUE: 5 views with flexion and extension Findings/impression: Satisfactory alignment. Maintained vertebral body heights. Multilevel disc disease and facet arthropathy of L3-S1. Intact hardware. No acute fracture or subluxation. Left-sided sacroiliac fixation. Intact hardware. Diagnosis/Plan: There are no diagnoses linked to this encounter. Complex left 4th toe infection -MRI 05/11 and 06/29 does not show clear osteomyelitis but does have soft tissue swelling -culture from 4th toe 05/17 with Staphylococcus epidermidis for thigh overgrowth only likely a contaminant; 05/05 negative; 05/02 with finegoldia -history of MRSA nares 04/21 negative -Keflex x 2, cefixime, levaquin and doxycycline course without clearance per history -concern for a deep-seated infection that is not being resolved with short courses of oral therapy -s/p operative procedure 07/08 with S epi and finegoldia. -there is no inciting trauma or events preceding this infection that the patient recalls including no bite injuries, soil, pedicures or other inciting events to suggest unusual organisms but this remains in the differential -Operative 07/08 finding no pus and MRI negative for OM; did debride down to tendon; specimens for bacterial aerobic and anaerobic showed S. Epi and Finegoldia on 07/08 -suspect the staph epi is not a true cause of a deep-seated infection given lack of hardware -S/p Augmentin 875 mg twice daily for the finegoldia, 07/13-07/24 -plan at least a three-week treatment course but possibly longer -Pending fungal and afb cultures 07/08, NGTD -Recurrent I&D for abscess on 07/21, cx negative -MRI: Worsening subcutaneous edema/cellulitis over the left fourth digit with new focal collection/abscess laterally. No osteomyelitis. -despite Augmentin and Zyvox as well as prior antibiotics including doxycycline, Levaquin and cephalosporins she continues to have a purulent abscess of her toe. -uric acid is normal and no history of gout per her report; consider noninfectious causes but none clear - she does have history of cancer but this is remote would be an odd presentation -plan to discuss with 2nd infectious disease provider, recommended PCR to be done -TB and Fungitell of blood negative -Repeat cultures purulence 07/29 for AFB and fungal cultures, NGTD -patient had I&D on 08/11 with culture negative by Podiatry but no further studies were sent including no pathology or PCR -weekly cbc, cmp, and crp, esr ordered while on iv therapy, ertapenem -patient is a call and we will send note to Podiatry that if there is any further fluid or tissues this should be sent for pathology and broad range PCR as it is not clear that this is a bacterial process. This area becomes swollen purulent again would recommend stopping current antibiotics awaiting these tests Hx of DM +-patient denies a history of diabetes but this is in her record and states that she is not currently on any management. Previous BMP shows mildly elevated glucose. -a1c 5.5, 5.8 - normal range Healthcare maintenance -history of prior flu shots, would recommend flu shot this fall -history of pneumococcal conjugate and polysaccharide vaccines -history of tetanus vaccine 2017 -recommend keeping up-to-date on all recommended vaccines Left knee degenerative disease -operative management by Orthopedics is on hold pending resolution of toe infection Return to clinic in 10 days 22 min of care Please note Portions of this note utilized [employer] and Tinder dictation software, please excuse any typographical or grammatical errors. [facility] History of Present illness Narrative* Tom Srivastava, DMD - 08/12/2023 4:10 PM EDT VIRTUAL VISIT PROGRESS NOTE This is a virtual visit using [employer] Video Visit. It required patient- provider interaction for the medical decision making as documented below. The patient's identity and physical location were verified at the time of this visit. Either the patient or their legal union representative has been informed of the risks and benefits of -- and alternatives to -- treatment through a remote evaluation and consents to proceed with the evaluation remotely. Elena Galeano is a 63 year old female seen for OAT follow up. She has been using the device routinely and has had no issues so far. She feels it is helping her sleep and is able to use the MOG. HISTORY REVIEWED (electronic chart updated): PAST MEDICAL HISTORY Diagnosis Date Anxiety Depression Hypertension Lymphoma (HCC) 10/24/2010 Right knee pain 06/12/2014 Stroke (HCC) PAST SURGICAL HISTORY Procedure Laterality Date ANESTH OPEN/SURG ARTHRS TOTAL KNEE ARTHROPLASTY 05/19/2015 right TKA APPENDECTOMY ARTHROSCOPY KNEE SUBCHONDROPLAST 10/11/2014 right knee medial menisectomy & femoral tibial subchondroplasty COLONOSCOPY FLX DX W/COLLJ SPEC WHEN PFRMD 05/31/13 Colonoscopy EGD 2013 PAST SURGICAL HISTORY OF left ovary and fallopian tube removed for a benign cyst, done in her 20's PAST SURGICAL HISTORY OF Pilonidal cyst removed PAST SURGICAL HISTORY OF 01/2013 port a cath, left , 2011 with revision in 2012 TONSILLECTOMY PRIMARY/SECONDARY <AGE 10 Tonsillectomy FAMILY HISTORY Problem Relation Age of Onset None Mother None Father None Sister X 3 None Brother X 2 Social History Tobacco Use Smoking status: Former Packs/day: 0.50 Years: 30.00 Additional pack years: 0.00 Total pack years: 15.00 Types: Cigarettes Quit date: 01/22/2013 Years since quittin.5 Smokeless tobacco: Never Vaping Use Vaping Use: Never used Substance Use Topics Alcohol use: No Drug use: No Current Outpatient Medications Medication Sig lisinopril (ZESTRIL, PRINIVIL) 10 mg tablet Take 1 tablet by mouth once daily. carvedilol (COREG) 25 mg tablet Take 1 tablet by mouth twice daily with meals. (Patient taking differently: Take 12.5 mg by mouth twice daily with meals.) triamterene-hydroCHLOROthiazide (MAXZIDE-25) 37.5-25 mg per tablet Take 1 tablet by mouth once daily. clopidogrel (PLAVIX) 75 mg tablet Take 1 tablet by mouth once daily for 21 doses. traZODone (DESYREL) 100 mg tablet Take [address]op[address] (PROTONIX) 40 mg tablet Take 40 mg by mouth. buPROPion XL (WELLBUTRIN XL) 300 mg 24 hr tablet Take 300 mg by mouth. REPATHA SURECLICK 140 mg/mL pen injector Inject 1 mL under the skin every 14 days. albuterol HFA (PROVENTIL HFA, VENTOLIN HFA) 90 mcg/actuation inhaler Inhale 2 Puffs as instructed every 6 hours as needed. No current facility-administered medications for this visit. ALLERGIES Allergen Reactions Seasonal Allergies Other: See Comments sneezing and stuffy nose PHYSICAL EXAMINATION: VIDEO EXAM: (if completed, performed via video enabled technology) No exam performed ASSESSMENT: No diagnosis found. Acclimating well so far to the appliance. PLAN: Continue at the current position and follow up 4 weeks. Tom Srivsatava DMD documented in [facility] History of Present illness Narrative* Joycelyn Calhonu MA - 08/11/2023 1:10 PM EDT Nurse Note: Review of Systems Constitutional: Negative for fatigue, fever and unexpected weight change. HENT: No difficulty swallowing No change in voice Respiratory: Negative for cough, shortness of breath and wheezing. Cardiovascular: Negative for chest pain, palpitations and leg swelling. Gastrointestinal: Negative for constipation, diarrhea, nausea and vomiting. Neurological: Negative for tremors, weakness and numbness. Psychiatric/Behavioral: Negative for sleep disturbance. The patient is not nervous/anxious. Nursing Assessment: Physical Exam * Dawn Uriarte DPM - 08/11/2023 1:10 PM EDTAssociated Order(s): INCISION AND DRAINAGE Post-Procedure Diagnose(s): Cellulitis and abscess of toe of left foot Patient Elena Galeano Date: 08/11/2023 Subjective: Elena is here for follow up of left 4th toe infection. She did get her PICC and is getting antibiotics per dr. Shipley. She had her MRI as well. She feels like the toe is filling with fluid again. History She goes to see dr. shipley tomorrow. Waiting on approval for PICC. History She is on updated antibiotics per dr. Shipley. She notes she is doing ok. She is on augmentin History that the toe is improving, but something is happening on the underside of the toe. History of the left 4th toe. She notes that she is on her 2nd round of keflex. She has had an xray a few days ago and some purulence drained from the toe a few days ago. A culture is pending. She notes that the toe has been bad for 3-4 months, but she really has had problems on and off for about a month. She does not remember any kind of trauma. Allergies Allergen Reactions Nsaids Has CKD-3a, and Anemia Current Outpatient Medications Medication Sig Albuterol (Ventolin HFA) 108 (90 Base) MCG/ACT Aero Soln inhaler Inhale 2 puffs every 6 hours as needed for Wheezing. Allopurinol 100 MG tablet Take 1 tablet by mouth daily. apixaban 2.5 MG tablet 2.5 mg 2 tabs, BID- Lot # [id number] - 08.15 buPROPion (Wellbutrin XL) 300 MG tablet XL Take 1 tablet by mouth every morning before breakfast. carveDILOL (Coreg) 12.5 MG tablet Take 1 tablet by mouth 2 times daily with meals. Given by Dr. Calderon Cetirizine 10 MG tablet Take 1 tablet by mouth daily as needed for Allergies. OTC Clindamycin Phos-Benzoyl Perox 1.2-3.75 % Gel Apply 1 Application topically daily. Given by Dermatology Dr. Dejesus Clopidogrel 75 MG tablet Take 1 tablet by mouth daily. cyanocobalamin 1000 MCG tablet Take 1 tablet by mouth daily. Chew 1 tab q daily Evolocumab (Repatha SureClick) 140 MG/ML Solution Auto-injector injection Inject 1 mL under the skin every 14 days. (Patient taking differently: Inject 1 mL under the skin every 14 days. Last dose 06/17/2023) fenofibrate 160 MG tablet Take 1 tablet by mouth daily. Folic acid 1 MG tablet Take 1 tablet by mouth daily. Lisinopril 5 MG tablet Take 1 tablet by mouth daily. Cancel previous refills magnesium oxide 400 (240 Mg) MG Take 1 tablet by mouth daily. OTC Mupirocin 2 % ointment Apply topical TID for 7 days Pantoprazole (Protonix) [address] tablet DR Take 1 tablet by mouth 2 times daily (take before meals). traZODone 100 MG tablet Take 1 tablet by mouth at bedtime. triamterene-hydrochlorothiazide (Dyazide) 37.5-25 MG per capsule Take 1 capsule by mouth daily. Cancel previous refills Past Medical History: Diagnosis Date A-fib Anemia low Fe Arrhythmia Arthritis ASCUS of cervix with negative high risk HPV Asthma not asthma B12 deficiency Carotid stenosis, bilateral-Right 30%, and left 60% Central retinal artery occlusion of left eye CKD (chronic kidney disease) stage 3, GFR 30-59 ml/min-3a patient denies CLL (chronic lymphocytic leukemia) 2011 [id number] on 09-30-2020 Depression Diffuse non-Hodgkin's lymphoma chemotherapy Folate deficiency GERD (gastroesophageal reflux disease) Gout pt denies Hiatal hernia pt denies Hyperglycemia Hyperlipidemia LDL goal <70 Hypertension Hyponatremia Liver disease fatty liver Non-Hodgkin lymphoma 2012 in remission PERCY (obstructive sleep apnea) PVC's (premature ventricular contractions) 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 (blindness) Past Surgical History: Procedure Laterality Date I&D BURSA FOOT Left 07/08/2023 Laterality: Left; Surgeon: Dawn Uriarte DPM; Location: [facility] OR INJECTION NERVE OTHER PERIPHERAL Left 12/16/2022 Laterality: Left; Surgeon: Isreal Sigala MD; Location: [facility] OR GUIDANCE FLUOROSCOPIC NEEDLE OR CATHETER PLACEMENT FOR SPINE INJECTION ADD-ON PX Left 12/16/2022 Laterality: Left; Surgeon: Isreal Sigala MD; Location: [facility] OR SUSPENSION URETHRA/URETHROVESICAL FEMALE OPEN W/ SYNTHETIC MATERIAL (SLING) Midline 08/31/2022 Laterality: Midline; Surgeon: Dariusz Rangel MD; Location: [facility] OR CYSTOURETHROSCOPY W/ DILATION BLADDER Midline 08/31/2022 Laterality: Midline; Surgeon: Dariusz Rangel MD; Location: [facility] OR COLPORRHAPHY ANTEROPOSTERIOR REPAIR CYSTOCELE & RECTOCELE Midline 08/31/2022 Laterality: Midline; Surgeon: Dariusz Rangel MD; Location: [facility] OR ARTHRODESIS SACROILIAC JOINT MINIMALLY INVASIVE W/ TRANSFIXING DEVICE Left 06/17/2022 Laterality: Left; Surgeon: Isreal Sigala MD; Location: [facility] OR GUIDANCE FLUOROSCOPIC NEEDLE OR CATHETER PLACEMENT FOR SPINE INJECTION ADD-ON PX Left 06/17/2022 Laterality: Left; Surgeon: Isreal Sigala MD; Location: [facility] OR EGD W/ DILATION BALLOON N/A 12/01/2021 Laterality: N/A; Surgeon: Indra Parrish DO; Location: [facility]OSCOPY SHOULDER ARTHROSCOPY Left 06/18/2021 REMOVAL CENTRAL VENOUS ACCESS DEVICE TUNNELED W/ PORT PUMP Left 09/13/2019 Laterality: Left; Surgeon: Eduardo Muñoz MD; Location: [facility] INTERVENTIONAL RADIOLOGY (VIR) EGD W/ DILATION BALLOON N/A 06/30/2018 Laterality: N/A; Surgeon: Indra Parrish DO; Location: [facility]OSCOPY EGD DIAGNOSTIC N/A 04/07/2018 Laterality: N/A; Surgeon: Wilner Leigh MD; Location: [facility]OSCOPY COLONOSCOPY DIAGNOSTIC N/A 04/07/2018 Laterality: N/A; Surgeon: Wilner Leigh MD; Location: [facility] ENDOSCOPY KNEE REPLACEMENT Right 05/2015 done at [place]--CC ARTHROPLASTY KNEE TOTAL Right 04/2015 INSERTION PICC W/ PORT PUMP 2014 power port COLONOSCOPY DIAGNOSTIC 2006 SALPINGO-OOPHORECTOMY OPEN N/A 1983 APPENDECTOMY OPEN 1983 TONSILLECTOMY ADENOIDECTOMY 1967 EGD DIAGNOSTIC 10 months ago Social History Occupational History Employer: RETIRED Tobacco Use Smoking status: Former Packs/day: 0.75 Years: 35.00 Additional pack years: 0.00 Total pack years: 26.25 Types: Cigarettes Quit date: 04/23/2013 Years since quittin.3 Smokeless tobacco: Never Vaping Use Vaping Use: Never used Substance and Sexual Activity Alcohol use: Yes Alcohol/week: 2.0 standard drinks of alcohol Types: 2 Cans of beer per week Drug use: Never Sexual activity: Not Currently control/protection: Menopause ROS: Review of Systems Nurse Note: Review of Systems Constitutional: Negative for fatigue, fever and unexpected weight change. HENT: No difficulty swallowing No change in voice Respiratory: Negative for cough, shortness of breath and wheezing. Cardiovascular: Negative for chest pain, palpitations and leg swelling. Gastrointestinal: Negative for constipation, diarrhea, nausea and vomiting. Neurological: Negative for tremors, weakness and numbness. Psychiatric/Behavioral: Negative for sleep disturbance. The patient is not nervous/anxious. Nursing Assessment: Physical Exam Objective: Vitals: 08/11/23 1246 BP: 150/80 Objective: Vascular: Dorsalis pedis and posterior tibial pulses are readilly palpable and graded at 2/4 bilateral. Dermatological: Left 4th toe with mild swelling and no erythema. The plantar incision is healed. The dorsal incision is healed/ there is an area of fluctuance at the proximal phalanx head. MRI FOOT LEFT WITHOUT CONTRAST Result Date: 05/10/2023 EXAM: MRI FOOT LEFT WITHOUT CONTRAST HISTORY: For stress swelling and abscess. Rule out osteomyelitis COMPARISON: None. TECHNIQUE: Multiplanar MRI of left foot was performed without contrast in sagittal, coronal and axial planes using T1, T2 and STIR pulsing sequences FINDINGS: Bony structures of left foot including visualized tarsal bones, metatarsals and phalanges demonstrate no evidence of fracture or contusion. No dislocation is seen. Small joint effusion is seen in the first metatarsophalangeal joint. Subtle marrow edema is suspected involving the fourth distal phalanx without bony destructive changes or abnormal T1 signal. No cortical disruption is seen to suggest osteomyelitis. The flexor and extensor tendons appear intact. Visualized plantar fascia appears intact. Collateral ligaments appear intact. Lisfranc ligament is visualized and appears intact. Evidence of superficial veindeep soft tissue edema involving fourth toe without focal collections. Muscles demonstrate normal signal. IMPRESSION: Soft tissue edema 4th distal phalanx without T1 abnormality or cortical disruption to suggest osteomyelitis. XR FOOT LEFT 3 VIEWS Result Date: 05/02/2023 EXAM: XR FOOT LEFT 3 VIEWS HISTORY: infection, redness, drainage of left 4th toe. COMPARISON: None available. FINDINGS: 3 views of the left foot were obtained. These were AP, oblique and lateral views weightbearing I do not specifically see any evidence of fracture or dislocation. There are no peria rticular calcifications, erosions or obvious signs of osteomyelitis. No soft tissue air is seen. The fourth digit appears prominently swollen IMPRESSION: 1. Prominent soft tissue swelling of the fourth digit of the left foot. 2. I do not seeany evidence of fracture, dislocation, advanced arthropathy or osteomyelitis. Assessment: Elena was seen today for follow-up and mri results. Diagnoses and all orders for this visit: Cellulitis and abscess of toe of left foot - CULTURE WOUND; Future acute complicated, limb threatening diagnosis Plan: Patient was seen and evaluated today MRI reviewed Decision made to do another I and D in the office See proc note Culture taken today Small piece of tendon like soft tissue came out of the deep space. Sent to [facility] for pathology eval. Continue antibiotics per dr. shipley Daily dressing changes At risk of amputation of toe Follow up in 2 week INCISION AND DRAINAGE Date/Time: 08/11/2023 1:10 PM Performed by: Dawn Uriarte DPM Authorized by: Dawn Uriarte DPM Indications: Type: Abscess Location: Body area: Lower extremity Location details: Left fourth toe Anesthesia: Anesthesia: Digital block Local anesthetic: Lidocaine 1% without epinephrine Anesthetic total (ml): 1 Procedure Details: Scalpel size: 15 Incision depth: Muscle Complexity: Simple Drainage: Purulent Drainage amount: Scant Wound treatment: Wound left open and drain placed Packing material: 1/4 in iodoform gauze Dressinx4 sterile gauze and Coban Patient tolerance: Patient tolerated the procedure well with no immediate complications Small piece of tendon like substance came out. Culture taken documented in this [facility] [place]10[facility]16-[facility]23 History of Present illness Narrative* Ciro Lyles MD - 08/08/2023 2:35 PM EDT ASSESSMENT/PLAN: 1. Optic atrophy of left eye - ICD9: 377.10, ICD10: H47.20 (primary diagnosis) History of central retinal artery occlusion left eye 2. Ischemic stroke (HCC) - ICD9: 434.91, ICD10: I63.9 Continue care with Cardiology. 3. Cataract, secondary obscuring vision, bilateral - ICD9: 366.53, ICD10: H26.493 4. Pseudophakia, both eyes - ICD9: V43.1, ICD10: Z96.1 Patient to consult for refraction and glasses If unable to improve vision with updated refraction, consider Yag laser 5. Essential hypertension - ICD9: 401.9, ICD10: I10 6. Mixed hyperlipidemia - ICD9: 272.2, ICD10: E78.2 7. PERCY (obstructive sleep apnea) - ICD9: 327.23, ICD10: G47.33 Continue care with primary care physician Ciro Lyles MD I have confirmed and edited as necessary the relevant ophthalmic history, review of systems, surgical history, and ophthalmological examination findings as obtained by the ophthalmic technical staff.I have seen and examined Elena Galeano. I have discussed the examination findings, diagnosis, and treatment options with Elena Galeano and/or her family. I have also reviewed and agree with the assessment and plan as stated above and agree with all its relevant components. I gave the patient the opportunity to ask questions about the findings, diagnosis, and treatment options. [facility] History of Present illness Narrative* Tom Srivastava DMD - 08/05/2023 5:09 PM EDT DENTISTRY AND MAXILLOFACIAL PROSTHETICS 08/05/2023 Elena Galeano [id number] SUBJECTIVE: This 63 year old female presents for insertion of her oral appliance for obstructive sleep apnea. We have reviewed the risks, benefits, alternatives, limitations, and reasonable expectations of oral appliance therapy. Consent form reviewed, signed, and copy offered to patient. She demonstrates understanding and wishes to proceed. Medical history:reviewed, no change.. OBJECTIVE: Try-in and adjustment of the DAVID PH appliance. Check and adjustment of bilateral balancing occlusal stops. Midlines confirmed with and without the appliance. MOG x 2 tried in and fit confirmed. Photos taken. ASSESSMENT: Instructions given and reviewed for use and care of the appliance. Patient demonstrated ability to insert and remove effectively. Patient demonstrated ability to complete mandibular repositioning. Warranty information given. The patient is comfortable with the appliance in place. PLAN: We reviewed the importance of daily adherence with the prescribed morning exercises and reviewed the recommended protocol. Begin oral appliance therapy and monitor for symptomatic improvement. Next appointment: one week(s) virtual. Call sooner if use becomes painful or with any other concerns. Tom Srivastava DMD [facility] History of Present illness Narrative* Brandie Marie RN - 08/04/2023 11:30 AM EDT 1140- Pt arrives to infusion clinic ambulatory for IV ATB therapy. Assessment completed, vitals obtained and WDL, PICC flushed and labs drawn. 1146- IV ATB started at this time, denies all other needs. 1220- Infusion completed, vitals obtained, line flushed and curos cap placed. Pt discharged ambulatory from clinic. [facility] History of Present illness Narrative* Sarah Edmondson MA - 08/04/2023 10:45 AM EDT HPI Elena Galeano 63 y.o. female presents today for Follow-up (Follow up) HPI Elena Galeano 63 y.o. female presents today for Toe Pain (4th toe on left foot from great toe. Dr. Uriarte debrided abscess on Sunday 07/15. No ATBs prescribed from him. ) Patient states ID consult appointment in June of 2023 that she is longstanding history of for several months of a left toe infection. She denies any specific trauma or inciting event that started this all. Past medical history includes stroke, AFib, left eye blindness, CLL and diffuse non-Hodgkin's lymphoma history status post chemotherapy s/p 10 yrs ago, GERD, hyperlipidemia, hypertension, DMII per record, fatty liver disease, obstructive sleep apnea, obesity, anemia, history of COVID. 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 Blackwood. History of former tobacco use, not current. No significant alcohol use, occasional. No illicit abx. No animal bites/scratches, no trauma noted, no barefoot outdoor walking. No hx of gout Patient was seen by Podiatry 05/05/2023 due to ingrown toenail of the 4th left toe ongoing issues for about 3 months at that time per notes with 2 courses of Keflex given at that time. Podiatry diagnosed with a patient with concerns for abscess and cellulitis of the distal 4th toe on 05/05 and MRI was ordered but was negative on 05/10 for deeper infection at that time. Patient was treated with local mupirocin and antibiotic oral course of cefixime. Patient was then treated in the May timeframe with a course of Levaquin per Podiatry and then a course of doxycycline for 14 days new x-ray ordered showing soft tissue swelling on 06/14 without clear bony disease. Patient was then seen on 06/28by Podiatry and a repeat MRI was order due to concern for osteomyelitis of the 4th toe per Podiatryalthough radiology report was negative from 06/29. Hx significant for recurrent purulence reported and patient was referred at this visit to Infectious Disease for IV antibiotics as well as plans forsurgical debridement with an incision and drainage pending for 07/08 with consideration of hyperbaric treatment as well noted No known allergies to antibiotics noted ID consult visit 07/04/2023 Patient denies any fevers or chills. Does note some sweats. No systemic symptoms otherwise. Denies any significant left toe pain. She states that there is a pocket in her plantar area that she believes is collecting fluid and then she has intermittent drainage from this area. ID clinic follow up 07/13, she is status post surgery by Podiatry on 07/08 for incision and drainageof left 4th toe with abscess and cellulitis reported. There was no gross purulence for operative report and cultures were taken. Patient here for follow up of culture data. The culture data was obtained yesterday and plans for adjustment of antibiotics today. Patient denies any fevers chills or sweats. Culture shows Staphylococcus epidermidis rare which is likely a contaminant, resistant to clindamycin and penicillin but otherwise sensitive. Patient also grew Finegoldia. AFB and fungal stains/cultures are pending. Patient's foot is currently dressed, no significant pain noted. No other complai nts reported F/up 07/18, on augmentin. Tolerating well. Some left 4th toe pain, sutures in place. F/up podiatry today. No f/c/s. No other symptoms on ROS. Patient was started on Augmentin 07/13 but not note any significant improvement in pain or discomfort. Some blood on drainage but no other discharge and no purulence noted. No tracking cellulitis. ID clinic 07/22, messaged by podiatry to see patient today for iv abx as new abscess formed again on4th toe and I&D again on 07/21 with new cx taken. NO inciting event and no pedicures of recent. No trauma. ID clinic 07/29, for f/up visit. Ongoing drainage pus reported. No pain. No f/c/s. On po augmentinand zyvox, already these well with some minimum diarrhea of 1-2 stools a day. However purulence of left 4th toe continues despite oral antibiotics with intermittent purulent drainage from both dorsaland lateral aspects. Patient notes no other symptoms or toe involvement. Had MRI today which shows abscess but no osteomyelitis. Still no word from insurance about approving home IV infusion. Saw Podiatry yesterday ROS Review of Systems A complete review of systems are negative except those consistent with HPI No fevers, chills or sweats No cough, chest pain No dysphagia, odynophagia No abdominal pain, nausea, vomiting, diarrhea No dysuria, frequency, hematuria No headache, dizziness, focal neurologic complaints No ear pain No sinus pain No rash No weight loss No joint or muscular pain Recent travel history? No HISTORY/ALLERGIES/MEDS Allergies Allergen Reactions Nsaids Has CKD-3a, and Anemia Past Medical History: Diagnosis Date A-fib Anemia low Fe Arrhythmia Arthritis ASCUS of cervix with negative high risk HPV Asthma not asthma B12 deficiency Carotid stenosis, bilateral-Right 30%, and left 60% Central retinal artery occlusion of left eye CKD (chronic kidney disease) stage 3, GFR 30-59 ml/min-3a patient denies CLL (chronic lymphocytic leukemia) 2012 [id number] on 09-30-2020 Depression Diffuse non-Hodgkin's lymphoma chemotherapy Folate deficiency GERD (gastroesophageal reflux disease) Gout pt denies Hiatal hernia pt denies Hyperglycemia Hyperlipidemia LDL goal <70 Hypertension Hyponatremia Liver disease fatty liver Non-Hodgkin lymphoma 2011 in remission PERCY (obstructive sleep apnea) PVC's (premature ventricular contractions) 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 (blindness) Past Surgical History: Procedure Laterality Date I&D BURSA FOOT Left 07/08/2023 Laterality: Left; Surgeon: Dawn Uriarte DPM; Location: [facility] OR INJECTION NERVE OTHER PERIPHERAL Left 12/16/2022 Laterality: Left; Surgeon: Isreal Sigala MD; Location: [facility] OR GUIDANCE FLUOROSCOPIC NEEDLE OR CATHETER PLACEMENT FOR SPINE INJECTION ADD-ON PX Left 12/16/2022 Laterality: Left; Surgeon: Isreal Sigala MD; Location: [facility] OR SUSPENSION URETHRA/URETHROVESICAL FEMALE OPEN W/ SYNTHETIC MATERIAL (SLING) Midline 08/31/2022 Laterality: Midline; Surgeon: Dariusz Rangel MD; Location: [facility] OR CYSTOURETHROSCOPY W/ DILATION BLADDER Midline 08/31/2022 Laterality: Midline; Surgeon: Dariusz Rangel MD; Location: [facility] OR COLPORRHAPHY ANTEROPOSTERIOR REPAIR CYSTOCELE & RECTOCELE Midline 08/31/2022 Laterality: Midline; Surgeon: Dariusz Rangel MD; Location: [facility] OR ARTHRODESIS SACROILIAC JOINT MINIMALLY INVASIVE W/ TRANSFIXING DEVICE Left 06/17/2022 Laterality: Left; Surgeon: Isreal Sigala MD; Location: [facility] OR GUIDANCE FLUOROSCOPIC NEEDLE OR CATHETER PLACEMENT FOR SPINE INJECTION ADD-ON PX Left 06/17/2022 Laterality: Left; Surgeon: Isreal Sigala MD; Location: [facility] OR EGD W/ DILATION BALLOON N/A 12/01/2021 Laterality: N/A; Surgeon: Indra Parrish DO; Location: [facility] ENDOSCOPY SHOULDER ARTHROSCOPY Left 06/18/2021 REMOVAL CENTRAL VENOUS ACCESS DEVICE TUNNELED W/ PORT PUMP Left 09/13/2019 Laterality: Left; Surgeon: Eduardo Muñoz MD; Location: [facility] INTERVENTIONAL RADIOLOGY (VIR) EGD W/ DILATION BALLOON N/A 06/30/2018 Laterality: N/A; Surgeon: Indra Parrish DO; Location: [facility] ENDOSCOPY EGD DIAGNOSTIC N/A 04/07/2018 Laterality: N/A; Surgeon: Wilner Leigh MD; Location: [facility]OSCOPY COLONOSCOPY DIAGNOSTIC N/A 04/07/2018 Laterality: N/A; Surgeon: Wilner Leigh MD; Location: [facility] ENDOSCOPY KNEE REPLACEMENT Right 05/2015 done at [place]--CC ARTHROPLASTY KNEE TOTAL Right 04/2015 INSERTION PICC W/ PORT PUMP 2015 power port COLONOSCOPY DIAGNOSTIC 2006 SALPINGO-OOPHORECTOMY OPEN N/A 1983 APPENDECTOMY OPEN 1983 TONSILLECTOMY ADENOIDECTOMY 1968 EGD DIAGNOSTIC 10 months ago Social History Socioeconomic History Marital status: Spouse name: Not on file Number of children: Not on file Years of education: Not on file Highest education level: Not on file Occupational History Employer: RETIRED Tobacco Use Smoking status: Former Packs/day: 0.75 Years: 35.00 Additional pack years: 0.00 Total pack years: 26.25 Types: Cigarettes Quit date: 04/23/2013 Years since quittin.2 Smokeless tobacco: Never Vaping Use Vaping Use: Never used Substance and Sexual Activity Alcohol use: Yes Alcohol/week: 2.0 standard drinks of alcohol Types: 2 Cans of beer per week Drug use: Never Sexual activity: Not Currently control/protection: Menopause Other Topics Concern Service Not Asked Blood Transfusions Not Asked Caffeine Concern Not Asked Occupational Exposure Not Asked Hobby Hazards Not Asked Sleep Concern Not Asked Stress Concern Not Asked Weight Concern Not Asked Special Diet Not Asked Back Care Not Asked Exercise Not Asked Bike Helmet Not Asked Seat Belt Not Asked Domestic Violence No Social History Narrative Not on file Social Determinants of Health Financial Resource Strain: Not on file Food Insecurity: Not on file Transportation Needs: Not on file Physical Activity: Not on file Stress: Not on file Social Connections: Not on file Intimate Partner Violence: Not on file Housing Stability: Not on file Family History Problem Relation Age of Onset Hypertension Mother Lipid Disorder Mother Depression Mother Clotting Disorder Mother hx of DVT Dementia Father Arrhythmia Father A-Fib Anesth Problems Sister post-op n/v Breast Cancer Maternal Aunt Cancer- Other Maternal Uncle melanoma Ovarian Cancer Paternal Aunt Cancer Paternal Aunt brain Lung Cancer Maternal Grandfather Hypertension Son Lipid Disorder Daughter No known problems Daughter Autism Grandson Current Outpatient Medications: Albuterol (Ventolin HFA) 108 (90 Base) MCG/ACT Aero Soln inhaler, Inhale 2 puffs every 6 hours as needed for Wheezing., Disp: 18 g, Rfl: 0 Allopurinol 100 MG tablet, Take 1 tablet by mouth daily., Disp: 90 tablet, Rfl: 3 Amoxicillin-clavulanate 875-125 MG tablet, Take 1 tablet by mouth every 12 hours for 10 days., Disp: 20 tablet, Rfl: 0 apixaban 2.5 MG tablet, 2.5 mg 2 tabs, BID- Lot # [id number] 08.15, Disp: 56 tablet, Rfl: 0 buPROPion (Wellbutrin XL) 300 MG tablet XL, Take 1 tablet by mouth every morning before breakfast.,Disp: 90 tablet, Rfl: 0 carveDILOL (Coreg) 12.5 MG tablet, Take 1 tablet by mouth 2 times daily with meals. Given by Dr. Calderon, Disp: , Rfl: Cetirizine 10 MG tablet, Take 1 tablet by mouth daily as needed for Allergies. OTC, Disp: , Rfl: Clindamycin Phos-Benzoyl Perox 1.2-3.75 % Gel, Apply 1 Application topically daily. Given by Dermatology Dr. Dejesus, Disp: , Rfl: Clopidogrel 75 MG tablet, Take 1 tablet by mouth daily., Disp: 90 tablet, Rfl: 3 cyanocobalamin 1000 MCG tablet, Take 1 tablet by mouth daily. Chew 1 tab q daily, Disp: 90 tablet, Rfl: 0 Evolocumab (Repatha SureClick) 140 MG/ML Solution Auto-injector injection, Inject 1 mL under the skin every 14 days. (Patient taking differently: Inject 1 mL under the skin every 14 days. Last dose 06/17/2023), Disp: 2 mL, Rfl: 11 fenofibrate 160 MG tablet, Take 1 tablet by mouth daily., Disp: 90 tablet, Rfl: 3 Folic acid 1 MG tablet, Take 1 tablet by mouth daily., Disp: 90 tablet, Rfl: 0 Lisinopril 5 MG tablet, Take 1 tablet by mouth daily. Cancel previous refills, Disp: 90 tablet, Rfl: 0 magnesium oxide 400 (240 Mg) MG, Take 1 tablet by mouth daily. OTC, Disp: , Rfl: Mupirocin 2 % ointment, Apply topical TID for 7 days, Disp: 30 g, Rfl: 0 Pantoprazole (Protonix) [address] tablet DR, Take 1 tablet by mouth 2 times daily (take before meals)., Disp: 180 tablet, Rfl: 0 traZODone 100 MG tablet, Take 1 tablet by mouth at bedtime., Disp: 90 tablet, Rfl: 0 triamterene-hydrochlorothiazide (Dyazide) 37.5-25 MG per capsule, Take 1 capsule by mouth daily. Cancel previous refills, Disp: 90 capsule, Rfl: 3 hydroCODone-acetaminophen 5-325 MG tablet, Take 1 tablet by mouth every 4 hours as needed for Moderate Pain for up to 3 days., Disp: 18 tablet, Rfl: 0 EXAM BP 128/72 (BP Location: Right arm, BP Position: Sitting) Pulse 82 Temp 96.8 F (36 C) (Temporal) Resp 18 Ht 1.651 m (5' 5) Wt 94.8 kg (209 lb) SpO2 97% BMI 34.78 kg/m Smoking Status Former Physical Exam Vitals and nursing note reviewed. Constitutional: General: She is not in acute distress. Appearance: Normal appearance. HENT: Head: Normocephalic and atraumatic. Mouth/Throat: Pharynx: Oropharynx is clear. No oropharyngeal exudate. Eyes: Extraocular Movements: Extraocular movements intact. Conjunctiva/sclera: Conjunctivae normal. Pupils: Pupils are equal, round, and reactive to light. Cardiovascular: Rate and Rhythm: Normal rate and regular rhythm. Pulses: Normal pulses. Heart sounds: Normal heart sounds. No murmur heard. Pulmonary: Effort: Pulmonary effort is normal. No respiratory distress. Breath sounds: Normal breath sounds. No rhonchi or rales. Abdominal: General: Bowel sounds are normal. There is no distension. Palpations: Abdomen is soft. Tenderness: There is no abdominal tenderness. There is no guarding. Genitourinary: Comments: No CVA or suprapubic tenderness Musculoskeletal: General: No swelling or tenderness. Normal range of motion. Cervical back: Normal range of motion and neck supple. No rigidity. Comments: Left 4th toe with purulent drainage from the dorsum of her foot, entire toe is erythematous and swollen moderate. Nontender. No streaking cellulitis. Skin: General: Skin is warm and dry. Findings: No rash. Neurological: General: No focal deficit present. Mental Status: She is alert. Psychiatric: Mood and Affect: Mood normal. Behavior: Behavior normal. Thought Content: Thought content normal. LABS CBC Lab Results Component Value Date WBC 6.6 06/29/2023 HGB 13.2 06/29/2023 HCT 39.1 06/29/2023 PLATELET 218 06/29/2023 MCV 97.4 06/29/2023 EDIF Lab Results Component Value Date RBCDISTRIBU 14.0 06/29/2023 GRNLOCYT 43.5 09/29/2022 LYMPHOCYT 45.1 09/29/2022 MONOCYTELEC 9.2 09/29/2022 EOSINOPHILS 1.2 04/21/2023 EOSINOPHILS 0.1 04/21/2023 BASOPHILS 0.6 04/21/2023 BASOPHILS 0.0 04/21/2023 GRNLOCTYABS 3.0 11/03/2016 LYMPHOCYTABS 1.8 04/21/2023 MONOSABSOLU 0.5 11/03/2016 EOSINOPHLABS 0.09 09/29/2022 BASOPHILSABS 0.1 11/03/2016 PLATELET 218 06/29/2023 MPV 8.5 06/29/2023 EDIF Lab Results Component Value Date RBCDISTRIBU 14.0 06/29/2023 GRNLOCYT 43.5 09/29/2022 LYMPHOCYT 45.1 09/29/2022 MONOCYTELEC 9.2 09/29/2022 EOSINOPHILS 1.2 04/21/2023 EOSINOPHILS 0.1 04/21/2023 BASOPHILS 0.6 04/21/2023 BASOPHILS 0.0 04/21/2023 GRNLOCTYABS 3.0 11/03/2016 LYMPHOCYTABS 1.8 04/21/2023 MONOSABSOLU 0.5 11/03/2016 EOSINOPHLABS 0.09 09/29/2022 BASOPHILSABS 0.1 11/03/2016 PLATELET 218 06/29/2023 MPV 8.5 06/29/2023 ESR Lab Results Component Value Date RBCDISTRIBU 14.0 06/29/2023 GRNLOCYT 43.5 09/29/2022 LYMPHOCYT 45.1 09/29/2022 MONOCYTELEC 9.2 09/29/2022 EOSINOPHILS 1.2 04/21/2023 EOSINOPHILS 0.1 04/21/2023 BASOPHILS 0.6 04/21/2023 BASOPHILS 0.0 04/21/2023 GRNLOCTYABS 3.0 11/03/2016 LYMPHOCYTABS 1.8 04/21/2023 MONOSABSOLU 0.5 11/03/2016 EOSINOPHLABS 0.09 09/29/2022 BASOPHILSABS 0.1 11/03/2016 PLATELET 218 06/29/2023 MPV 8.5 06/29/2023 Lab Results Component Value Date SODIUM 133 (L) 06/29/2023 POTASSIUM 4.3 06/29/2023 CHLORIDE 100 06/29/2023 CO2 25 06/29/2023 BUN 16 06/29/2023 CREATSERUM 0.82 06/29/2023 GLUCOSE 123 (H) 06/29/2023 No results found for: CRP Lab Results Component Value Date RESULTCULT FINEGOLDIA MAGNA 07/08/2023 RESULTCULT STAPHYLOCOCCUS EPIDERMIDIS 07/08/2023 . Lab Results Component Value Date GLUCOSE 123 (H) 06/29/2023 . Lab Results Component Value Date CALCIUM 9.5 06/29/2023 Lab Results Component Value Date ALBUMIN 4.1 06/29/2023 SIUM 06/29/2023 CHLORIDE 06/29/2023 CO2 09 Lab Results Component Value Date BILITOTAL 0.9 06/29/2023 Lab Results Component Value Date BUN 16 06/29/2023 ALKPHOS 51 06/29/2023 BILITOTAL 0.9 06/29/2023 BILIDIRECT 0.1 10/22/2015 No orders to display IMAGING MRI FOOT LEFT WITHOUT CONTRAST Result Date: 06/29/2023 EXAM: MRI FOOT LEFT WITHOUT CONTRAST COMPARISON: Left foot x-rays from 06/14/2023 and left foot MRI from 05/10/2023. HISTORY: Infection in the fourth toe. Evaluate for osteomyelitis. TECHNIQUE: Multiplanar and multisequence imaging of the left foot was performed without contrast. FINDINGS: Motion artifact degrades evaluation on this study. There is mild soft tissue swelling involving the fourth toewith mild subcutaneous edema. Correlation for clinical findings of cellulitis would be helpful. There is no well-defined abscess. There is no MRI evidence of osteomyelitis. There is no low T1 signal or bony destruction in the phalanges of the fourth toe. No fracture or dislocation is evident. Thereis no metatarsal stress fracture. The tarsometatarsal alignment is anatomic. There is mild joint space narrowing and spurring involving the first metatarsophalangeal joint. Flexor and extensor tendons and the midfoot and forefoot appear intact with no focal tendon tear. There is no focal tenosynovitis. No muscle edema is identified. IMPRESSION: 1. There is mild subcutaneous edema and soft tissue swelling of the fourth toe suspicious for cellulitis. 2. No MRI evidence of osteomyelitis. 3. No focal abscess. 4. No acute or healing fracture in the foot. MRI SPINE LUMBAR WITHOUT CONTRAST Result Date: 06/20/2023 TITLE: MRI SPINE LUMBAR WITHOUT CONTRAST COMPARISON: 2021 lumbar spine MRI CLINICAL HISTORY: Low back pain radiating to the sacroiliac joints TECHNIQUE: Sagittal T1, sagittal T2 FSE, sagittal STIR, and axial T2 FSE. FINDINGS: Alignment is normal. There is no listhesis nor vertebral body height loss. The conus medullaris terminates at L1-2 and appears normal. The visualized adjacent soft suggest asmall right renal cyst. Prominent dorsal epidural fat L1-L5.. New metallic hardware traversing the left sacroiliac joint. T12-L1: Normal disc space. No stenosis L1-L2:Mild disc bulge. No significant stenosis. L2-3: Diffuse disc bulge. Left foraminal extension. Bilateral facet hypertrophy. Mild central canal and moderate left-sided foraminal narrowing L3-4: Mild disc bulge. Mild tear in left lateral annulus. Bilateral facet hypertrophy. Mild to moderate central canal and left-sided foraminal narrowing L4-5: Disc space narrowing lateral disc and osteophyte formation. Central disc protrusion. Facet hypertrophy and prominent dorsal epidural fat. This results in moderate to severe central canal and moderate foraminal narrowing L5-S1: Mild disc bulge. Bilateral facet hypertrophy. There is no significant central canal and [id number] left-sided foraminal narrowing IMPRESSION: MODERATE MULTILEVEL DEGENERATIVE CHANGES OF THE LUMBAR SPINE PROMINENT DORSAL EPIDURAL FAT L1-L5 L2-3: DIFFUSE DISC BULGE WITH LEFT FORAMINAL DISC PROTRUSION SMALL ANNULAR TEAR L3-4 MODERATE TO SEVERE MULTIFACTORIAL CENTRAL STENOSIS L4-5 FACET HYPERTROPHY LOWER 2 LUMBAR LEVELS XR FOOT LEFT 3 VIEWS Result Date: 06/14/2023 EXAM: XR FOOT LEFT 3 VIEWS HISTORY: left 4th toe infection COMPARISON: 05/02/2023. FINDINGS: 3 weightbearing views were submitted. Again the fourth toe appears swollen. Fracture, opaque foreign body or bony erosion not identified. Spurs present plantar and posterior calcaneus. IMPRESSION: 1. Again there is soft tissue swelling fourth toe, osseous abnormality not identified. 2. Calcaneal spurs. XR SPINE LUMBAR W BENDING Result Date: 06/07/2023 EXAM: XR SPINE LUMBAR W BENDING HISTORY: Spondylosis of lumbar region without myelopathy or radiculopathy COMPARISON: None. TECHNIQUE: 5 views with flexion and extension Findings/impression: Satisfactory alignment. Maintained vertebral body heights. Multilevel disc disease and facet arthropathy of L3-S1. Intact hardware. No acute fracture or subluxation. Left-sided sacroiliac fixation. Intact hardware. Diagnosis/Plan: There are no diagnoses linked to this encounter. Complex left 4th toe infection -MRI 05/11 and 06/29 does not show clear osteomyelitis but does have soft tissue swelling -culture from 4th toe 05/17 with Staphylococcus epidermidis for thigh overgrowth only likely a contaminant; 05/05 negative; 05/02 with finegoldia -history of MRSA nares 04/21 negative -Keflex x 2, cefixime, levaquin and doxycycline course without clearance per history -concern for a deep-seated infection that is not being resolved with short courses of oral therapy -s/p operative procedure 07/08 with S epi and finegoldia. -there is no inciting trauma or events preceding this infection that the patient recalls including no bite injuries, soil, pedicures or other inciting events to suggest unusual organisms but this remains in the differential -Operative 07/08 finding no pus and MRI negative for OM; did debride down to tendon; specimens for bacterial aerobic and anaerobic showed S. Epi and Finegoldia on 07/08 -suspect the staph epi is not a true cause of a deep-seated infection given lack of hardware -S/p Augmentin 875 mg twice daily for the finegoldia, 07/13-07/24 -plan at least a three-week treatment course but possibly longer -Pending fungal and afb cultures 07/08 -Recurrent I&D for abscess on 07/21, cx negative -crp 11.7, ESR 11 -MRI: Worsening subcutaneous edema/cellulitis over the left fourth digit with new focal collection/abscess laterally. No osteomyelitis. -despite Augmentin and Zyvox as well as prior antibiotics including doxycycline, Levaquin and cephalosporins she continues to have a purulent abscess of her toe. -uric acid is normal and no history of gout per her report; consider noninfectious causes but none clear - she does have history of cancer but this is remote would be an odd presentation -plan to discuss with 2nd infectious disease provider -paperwork was admitted twice for insurance company home antibiotics but this is not been approved for unclear reasons and we plan to follow up today with that issue. -continue IV ertapenem 07/29-current, this was chosen as it can be given once daily and covers many different organisms given negative culture data for a true pathogen noted -TB and Fungitell of blood and send repeat cultures purulence 07/29 for AFB and fungal cultures pending -weekly cbc, cmp, and crp ordered while on iv therapy -patient is going to the infusion center in [place] but we will be transferring to [facility] in orders were written so she can go closer to home -case discussed with the 2nd infectious disease provider regarding the cold abscesses that continueto occur raising the question of an atypical pathogen. If the IV antibiotics do not heal this area,would recommend open biopsy of tissue for sending to for broad range PCR to [facility] for bacteria, fungal and AFB specimens and this was discussed with her. Would need to coordinate with Podiatry Hx of DM +-patient denies a history of diabetes but this is in her record and states that she is not currently on any management. Previous BMP shows mildly elevated glucose. -a1c 5.5, 5.8 - normal range Healthcare maintenance -history of prior flu shots, would recommend flu shot this fall -history of pneumococcal conjugate and polysaccharide vaccines -history of tetanus vaccine 2018 -recommend keeping up-to-date on all recommended vaccines Left knee degenerative disease -operative management by Orthopedics is on hold pending resolution of toe infection Unclear cause of recurrent 4th toe abscess that are largely unresponsive to po abx. Will give IV course, however, fungal and TB testing pending. Consider sending pathology of tissue if repeat surgerydone in future with PCR as above. Repeat MRI does not show osteomyelitis fortunately late. Return to clinic in 10 days, earlier with any issues 31 Min of care including discussions 2nd infectious disease provider, filling out paperwork for transfer of infusion center to [place], lab orders, [id number] evaluation, review of literature. Please note Portions of this note utilized [employer] and Tinder dictation software, please excuse any typographical or grammatical errors. documented in this [facility] [place]10-11-2023 History of Present illness Narrative* Simona Garcia RN - 08/03/2023 1:30 PM EDT 1322: Patient arrives to clinic ambulatory for IV ATB. 1403: Infusion completed-no adverse reaction noted-PICC line flushed-patient leaves clinic ambulatory. documented in this [facility] [place]10-10-2023 History of Present illness Narrative* Brandie Marie RN - 08/02/2023 11:30 AM EDT 1130- Pt arrives to infusion clinic for IV ATB therapy. Assessment completed, vitals WDL, PICC flushed and patent. Provided with a coffee and denies all other needs. 1140- IV ATB started at this time. 1215- Infusion completed, vitals WDL, PICC flushed and curos cap placed. Pt discharged from clinic with AVS. documented in this [facility] [place]10-09-2023 History of Present illness Narrative* Chelsea Sierra RN - 08/01/2023 8:30 AM EDT 0822 - Pt arrives to infusion clinic ambulatory for Invanz infusion. Immediate needs assessed. Flushed line, flushes easily with a good blood return. Denies further needs or c/o. 0836 - Invanz infusion started at this time. Warm blanket given at this time. Denies further needs or c/o. 0911 - Infusion complete. Pt tolerated well. Vitals obtained. Flushed line, flushes easily with a good blood return. Denies needs or c/o. 0918 - Discharged ambulatory in stable condition. Verbalizes understanding of instructions. documented in this [facility] [place]10-08-2023 History of Present illness Narrative* Libertad Faust RN - 07/31/2023 8:00 AM EDT 0759 - Pt arrived to Infusion Clinic for antibiotic infusion. Pt is accompanied by . No c/o pain or other concerns at this time. 0826 - Pt resting in recliner. [place] offered for pt comfort. Infusion initiated. Pt voiced no c/oat this time. 09 - Infusion completed. Pt voiced no c/o at this time. Asking questions about infusion centers closer to her home. Advised pt to discuss options with Dr Shipley's staff tomorrow after infusion at 0830. Pt agreeable to this plan. PICC line flushed and capped with green alcohol cap. Pt ambulated to parking lot with . documented in this [facility] [place]10-07-2023 History of Present illness Narrative* Libertad Faust RN - 07/30/2023 8:15 AM EDT 0803 - Pt arrived in Infusion clinic for antibiotic treatment. Pt is alert and pleasant with no c/oat this time. VSS, PICC line assessed with good blood return noted. Pt comfortably sitting in recliner. 0831 - Infusion started. [place] offered to pt. No c/o at this time. 0857 - Pt chatting with other patients and staff. No c/o at this time. 0900 - Infusion completed. PICC line flushed and alcohol cap applied. 904 - VSS. Pt denies pain. Pt agreeable to plan to come to clinic tomorrow and Tuesday to continue treatment. [facility] History of Present illness Narrative* Simona Garcia RN - 07/29/2023 12:00 PM EDT 1410: Patient arrives to clinic ambulatory for IV ATB. Accompanied by . 1500: Infusion completed-no adverse reaction noted-PICC line flushed-patient leaves clinic ambulatory accompanied by . [facility] History of Present illness Narrative* Jenise Hodges - 07/29/2023 11:30 AM EDT Review of Systems A complete review of systems are negative except those consistent with HPI No fevers, chills or sweats No cough, chest pain No dysphagia, odynophagia No abdominal pain, nausea, vomiting, diarrhea No dysuria, frequency, hematuria No headache, dizziness, focal neurologic complaints No ear pain No sinus pain No rash No weight loss No joint or muscular pain Recent travel history? No * Monse Shipley MD - 07/29/2023 11:30 AM EDT HPI Elena Galeano 63 y.o. female presents today for Toe Pain (4th toe on left foot from great toe. Dr. Uriarte debrided abscess on Sunday 07/15. No ATBs prescribed from him. ) Patient states ID consult appointment in June of 2023 that she is longstanding history of for several months of a left toe infection. She denies any specific trauma or inciting event that started this all. Past medical history includes stroke, AFib, left eye blindness, CLL and diffuse non-Hodgkin's lymphoma history status post chemotherapy s/p 10 yrs ago, GERD, hyperlipidemia, hypertension, DMII per record, fatty liver disease, obstructive sleep apnea, obesity, anemia, history of COVID. 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 Blackwood. History of former tobacco use, not current. No significant alcohol use, occasional. No illicit abx. No animal bites/scratches, no trauma noted, no barefoot outdoor walking. No hx of gout Patient was seen by Podiatry 05/05/2023 due to ingrown toenail of the 4th left toe ongoing issues for about 3 months at that time per notes with 2 courses of Keflex given at that time. Podiatry diagnosed with a patient with concerns for abscess and cellulitis of the distal 4th toe on 05/05 and MRI was ordered but was negative on 05/10 for deeper infection at that time. Patient was treated with local mupirocin and antibiotic oral course of cefixime. Patient was then treated in the May timeframe with a course of Levaquin per Podiatry and then a course of doxycycline for 14 days new x-ray ordered showing soft tissue swelling on 06/14 without clear bony disease. Patient was then seen on 06/28by Podiatry and a repeat MRI was order due to concern for osteomyelitis of the 4th toe per Podiatryalthough radiology report was negative from 06/29. Hx significant for recurrent purulence reported and patient was referred at this visit to Infectious Disease for IV antibiotics as well as plans forsurgical debridement with an incision and drainage pending for 07/08 with consideration of hyperbaric treatment as well noted No known allergies to antibiotics noted ID consult visit 07/04/2023 Patient denies any fevers or chills. Does note some sweats. No systemic symptoms otherwise. Denies any significant left toe pain. She states that there is a pocket in her plantar area that she believes is collecting fluid and then she has intermittent drainage from this area. ID clinic follow up 07/13, she is status post surgery by Podiatry on 07/08 for incision and drainageof left 4th toe with abscess and cellulitis reported. There was no gross purulence for operative report and cultures were taken. Patient here for follow up of culture data. The culture data was obtained yesterday and plans for adjustment of antibiotics today. Patient denies any fevers chills or sweats. Culture shows Staphylococcus epidermidis rare which is likely a contaminant, resistant to clindamycin and penicillin but otherwise sensitive. Patient also grew Finegoldia. AFB and fungal stains/cultures are pending. Patient's foot is currently dressed, no significant pain noted. No other complai nts reported F/up 07/18, on augmentin. Tolerating well. Some left 4th toe pain, sutures in place. F/up podiatry today. No f/c/s. No other symptoms on ROS. Patient was started on Augmentin 07/13 but not note any significant improvement in pain or discomfort. Some blood on drainage but no other discharge and no purulence noted. No tracking cellulitis. ID clinic 07/22, messaged by podiatry to see patient today for iv abx as new abscess formed again on4th toe and I&D again on 07/21 with new cx taken. NO inciting event and no pedicures of recent. No trauma. ID clinic 07/29, for f/up visit. Ongoing drainage pus reported. No pain. No f/c/s. On po augmentinand zyvox, already these well with some minimum diarrhea of 1-2 stools a day. However purulence of left 4th toe continues despite oral antibiotics with intermittent purulent drainage from both dorsaland lateral aspects. Patient notes no other symptoms or toe involvement. Had MRI today which shows abscess but no osteomyelitis. Still no word from insurance about approving home IV infusion. Saw Podiatry yesterday ROS Review of Systems A complete review of systems are negative except those consistent with HPI No fevers, chills or sweats No cough, chest pain No dysphagia, odynophagia No abdominal pain, nausea, vomiting, diarrhea No dysuria, frequency, hematuria No headache, dizziness, focal neurologic complaints No ear pain No sinus pain No rash No weight loss No joint or muscular pain Recent travel history? No HISTORY/ALLERGIES/MEDS Allergies Allergen Reactions Nsaids Has CKD-3a, and Anemia Past Medical History: Diagnosis Date A-fib Anemia low Fe Arrhythmia Arthritis ASCUS of cervix with negative high risk HPV Asthma not asthma B12 deficiency Carotid stenosis, bilateral-Right 30%, and left 60% Central retinal artery occlusion of left eye CKD (chronic kidney disease) stage 3, GFR 30-59 ml/min-3a patient denies CLL (chronic lymphocytic leukemia) 2011 [id number] on 09-30-2020 Depression Diffuse non-Hodgkin's lymphoma chemotherapy Folate deficiency GERD (gastroesophageal reflux disease) Gout pt denies Hiatal hernia pt denies Hyperglycemia Hyperlipidemia LDL goal <70 Hypertension Hyponatremia Liver disease fatty liver Non-Hodgkin lymphoma 2011 in remission PERCY (obstructive sleep apnea) PVC's (premature ventricular contractions) 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 (blindness) Past Surgical History: Procedure Laterality Date I&D BURSA FOOT Left 07/08/2023 Laterality: Left; Surgeon: Dawn Uriarte DPM; Location: [facility] OR INJECTION NERVE OTHER PERIPHERAL Left 12/16/2022 Laterality: Left; Surgeon: Isreal Sigala MD; Location: [facility] OR GUIDANCE FLUOROSCOPIC NEEDLE OR CATHETER PLACEMENT FOR SPINE INJECTION ADD-ON PX Left 12/16/2022 Laterality: Left; Surgeon: Isreal Sigala MD; Location: [facility] OR SUSPENSION URETHRA/URETHROVESICAL FEMALE OPEN W/ SYNTHETIC MATERIAL (SLING) Midline 08/31/2022 Laterality: Midline; Surgeon: Dariusz Rangel MD; Location: [facility] OR CYSTOURETHROSCOPY W/ DILATION BLADDER Midline 08/31/2022 Laterality: Midline; Surgeon: Dariusz Rangel MD; Location: [facility] OR COLPORRHAPHY ANTEROPOSTERIOR REPAIR CYSTOCELE & RECTOCELE Midline 08/31/2022 Laterality: Midline; Surgeon: Dariusz Rangel MD; Location: [facility] OR ARTHRODESIS SACROILIAC JOINT MINIMALLY INVASIVE W/ TRANSFIXING DEVICE Left 06/17/2022 Laterality: Left; Surgeon: Isreal Sigala MD; Location: [facility] OR GUIDANCE FLUOROSCOPIC NEEDLE OR CATHETER PLACEMENT FOR SPINE INJECTION ADD-ON PX Left 06/17/2022 Laterality: Left; Surgeon: Isreal Sigala MD; Location: [facility] OR EGD W/ DILATION BALLOON N/A 12/01/2021 Laterality: N/A; Surgeon: Indra Parrish DO; Location: [facility] ENDOSCOPY SHOULDER ARTHROSCOPY Left 06/18/2021 REMOVAL CENTRAL VENOUS ACCESS DEVICE TUNNELED W/ PORT PUMP Left 09/13/2019 Laterality: Left; Surgeon: Eduardo Muñoz MD; Location: [facility] INTERVENTIONAL RADIOLOGY (VIR) EGD W/ DILATION BALLOON N/A 06/30/2018 Laterality: N/A; Surgeon: Indra Parrish DO; Location: [facility] ENDOSCOPY EGD DIAGNOSTIC N/A 04/07/2018 Laterality: N/A; Surgeon: Wilner Leigh MD; Location: [facility] ENDOSCOPY COLONOSCOPY DIAGNOSTIC N/A 04/07/2018 Laterality: N/A; Surgeon: Wilner Leigh MD; Location: [facility] ENDOSCOPY KNEE REPLACEMENT Right 05/2015 done at [place]--CC ARTHROPLASTY KNEE TOTAL Right 04/2015 INSERTION PICC W/ PORT PUMP 2014 power port COLONOSCOPY DIAGNOSTIC 2006 SALPINGO-OOPHORECTOMY OPEN N/A 1983 APPENDECTOMY OPEN 1983 TONSILLECTOMY ADENOIDECTOMY 1968 EGD DIAGNOSTIC 10 months ago Social History Socioeconomic History Marital status: Spouse name: Not on file Number of children: Not on file Years of education: Not on file Highest education level: Not on file Occupational History Employer: RETIRED Tobacco Use Smoking status: Former Packs/day: 0.75 Years: 35.00 Additional pack years: 0.00 Total pack years: 26.25 Types: Cigarettes Quit date: 04/23/2013 Years since quittin.2 Smokeless tobacco: Never Vaping Use Vaping Use: Never used Substance and Sexual Activity Alcohol use: Yes Alcohol/week: 2.0 standard drinks of alcohol Types: 2 Cans of beer per week Drug use: Never Sexual activity: Not Currently control/protection: Menopause Other Topics Concern Service Not Asked Blood Transfusions Not Asked Caffeine Concern Not Asked Occupational Exposure Not Asked Hobby Hazards Not Asked Sleep Concern Not Asked Stress Concern Not Asked Weight Concern Not Asked Special Diet Not Asked Back Care Not Asked Exercise Not Asked Bike Helmet Not Asked Seat Belt Not Asked Domestic Violence No Social History Narrative Not on file Social Determinants of Health Financial Resource Strain: Not on file Food Insecurity: Not on file Transportation Needs: Not on file Physical Activity: Not on file Stress: Not on file Social Connections: Not on file Intimate Partner Violence: Not on file Housing Stability: Not on file Family History Problem Relation Age of Onset Hypertension Mother Lipid Disorder Mother Depression Mother Clotting Disorder Mother hx of DVT Dementia Father Arrhythmia Father A-Fib Anesth Problems Sister post-op n/v Breast Cancer Maternal Aunt Cancer- Other Maternal Uncle melanoma Ovarian Cancer Paternal Aunt Cancer Paternal Aunt brain Lung Cancer Maternal Grandfather Hypertension Son Lipid Disorder Daughter No known problems Daughter Autism Grandson Current Outpatient Medications: Albuterol (Ventolin HFA) 108 (90 Base) MCG/ACT Aero Soln inhaler, Inhale 2 puffs every 6 hours as needed for Wheezing., Disp: 18 g, Rfl: 0 Allopurinol 100 MG tablet, Take 1 tablet by mouth daily., Disp: 90 tablet, Rfl: 3 Amoxicillin-clavulanate 875-125 MG tablet, Take 1 tablet by mouth every 12 hours for 10 days., Disp: 20 tablet, Rfl: 0 apixaban 2.5 MG tablet, 2.5 mg 2 tabs, BID- Lot # [id number] 08.15, Disp: 56 tablet, Rfl: 0 buPROPion (Wellbutrin XL) 300 MG tablet XL, Take 1 tablet by mouth every morning before breakfast.,Disp: 90 tablet, Rfl: 0 carveDILOL (Coreg) 12.5 MG tablet, Take 1 tablet by mouth 2 times daily with meals. Given by Dr. Calderon, Disp: , Rfl: Cetirizine 10 MG tablet, Take 1 tablet by mouth daily as needed for Allergies. OTC, Disp: , Rfl: Clindamycin Phos-Benzoyl Perox 1.2-3.75 % Gel, Apply 1 Application topically daily. Given by Dermatology Dr. Dejesus, Disp: , Rfl: Clopidogrel 75 MG tablet, Take 1 tablet by mouth daily., Disp: 90 tablet, Rfl: 3 cyanocobalamin 1000 MCG tablet, Take 1 tablet by mouth daily. Chew 1 tab q daily, Disp: 90 tablet, Rfl: 0 Evolocumab (Repatha SureClick) 140 MG/ML Solution Auto-injector injection, Inject 1 mL under the skin every 14 days. (Patient taking differently: Inject 1 mL under the skin every 14 days. Last dose 06/17/2023), Disp: 2 mL, Rfl: 11 fenofibrate 160 MG tablet, Take 1 tablet by mouth daily., Disp: 90 tablet, Rfl: 3 Folic acid 1 MG tablet, Take 1 tablet by mouth daily., Disp: 90 tablet, Rfl: 0 Lisinopril 5 MG tablet, Take 1 tablet by mouth daily. Cancel previous refills, Disp: 90 tablet, Rfl: 0 magnesium oxide 400 (240 Mg) MG, Take 1 tablet by mouth daily. OTC, Disp: , Rfl: Mupirocin 2 % ointment, Apply topical TID for 7 days, Disp: 30 g, Rfl: 0 Pantoprazole (Protonix) [address] tablet DR, Take 1 tablet by mouth 2 times daily (take before meals)., Disp: 180 tablet, Rfl: 0 traZODone 100 MG tablet, Take 1 tablet by mouth at bedtime., Disp: 90 tablet, Rfl: 0 triamterene-hydrochlorothiazide (Dyazide) 37.5-25 MG per capsule, Take 1 capsule by mouth daily. Cancel previous refills, Disp: 90 capsule, Rfl: 3 hydroCODone-acetaminophen 5-325 MG tablet, Take 1 tablet by mouth every 4 hours as needed for Moderate Pain for up to 3 days., Disp: 18 tablet, Rfl: 0 EXAM BP 128/72 (BP Location: Right arm, BP Position: Sitting) Pulse 82 Temp 96.8 F (36 C) (Temporal) Resp 18 Ht 1.651 m (5' 5) Wt 94.8 kg (209 lb) SpO2 97% BMI 34.78 kg/m Smoking Status Former Physical Exam Vitals and nursing note reviewed. Constitutional: General: She is not in acute distress. Appearance: Normal appearance. HENT: Head: Normocephalic and atraumatic. Mouth/Throat: Pharynx: Oropharynx is clear. No oropharyngeal exudate. Eyes: Extraocular Movements: Extraocular movements intact. Conjunctiva/sclera: Conjunctivae normal. Pupils: Pupils are equal, round, and reactive to light. Cardiovascular: Rate and Rhythm: Normal rate and regular rhythm. Pulses: Normal pulses. Heart sounds: Normal heart sounds. No murmur heard. Pulmonary: Effort: Pulmonary effort is normal. No respiratory distress. Breath sounds: Normal breath sounds. No rhonchi or rales. Abdominal: General: Bowel sounds are normal. There is no distension. Palpations: Abdomen is soft. Tenderness: There is no abdominal tenderness. There is no guarding. Genitourinary: Comments: No CVA or suprapubic tenderness Musculoskeletal: General: No swelling or tenderness. Normal range of motion. Cervical back: Normal range of motion and neck supple. No rigidity. Comments: Left 4th toe with purulent drainage from the dorsum of her foot, entire toe is erythematous and swollen moderate. Nontender. No streaking cellulitis. Skin: General: Skin is warm and dry. Findings: No rash. Neurological: General: No focal deficit present. Mental Status: She is alert. Psychiatric: Mood and Affect: Mood normal. Behavior: Behavior normal. Thought Content: Thought content normal. LABS CBC Lab Results Component Value Date WBC 6.6 06/29/2023 HGB 13.2 06/29/2023 HCT 39.1 06/29/2023 PLATELET 218 06/29/2023 MCV 97.4 06/29/2023 EDIF Lab Results Component Value Date RBCDISTRIBU 14.0 06/29/2023 GRNLOCYT 43.5 09/29/2022 LYMPHOCYT 45.1 09/29/2022 MONOCYTELEC 9.2 09/29/2022 EOSINOPHILS 1.2 04/21/2023 EOSINOPHILS 0.1 04/21/2023 BASOPHILS 0.6 04/21/2023 BASOPHILS 0.0 04/21/2023 GRNLOCTYABS 3.0 11/03/2016 LYMPHOCYTABS 1.8 04/21/2023 MONOSABSOLU 0.5 11/03/2016 EOSINOPHLABS 0.09 09/29/2022 BASOPHILSABS 0.1 11/03/2016 PLATELET 218 06/29/2023 MPV 8.5 06/29/2023 EDIF Lab Results Component Value Date RBCDISTRIBU 14.0 06/29/2023 GRNLOCYT 43.5 09/29/2022 LYMPHOCYT 45.1 09/29/2022 MONOCYTELEC 9.2 09/29/2022 EOSINOPHILS 1.2 04/21/2023 EOSINOPHILS 0.1 04/21/2023 BASOPHILS 0.6 04/21/2023 BASOPHILS 0.0 04/21/2023 GRNLOCTYABS 3.0 11/03/2016 LYMPHOCYTABS 1.8 04/21/2023 MONOSABSOLU 0.5 11/03/2016 EOSINOPHLABS 0.09 09/29/2022 BASOPHILSABS 0.1 11/03/2016 PLATELET 218 06/29/2023 MPV 8.5 06/29/2023 ESR Lab Results Component Value Date RBCDISTRIBU 14.0 06/29/2023 GRNLOCYT 43.5 09/29/2022 LYMPHOCYT 45.1 09/29/2022 MONOCYTELEC 9.2 09/29/2022 EOSINOPHILS 1.2 04/21/2023 EOSINOPHILS 0.1 04/21/2023 BASOPHILS 0.6 04/21/2023 BASOPHILS 0.0 04/21/2023 GRNLOCTYABS 3.0 11/03/2016 LYMPHOCYTABS 1.8 04/21/2023 MONOSABSOLU 0.5 11/03/2016 EOSINOPHLABS 0.09 09/29/2022 BASOPHILSABS 0.1 11/03/2016 PLATELET 218 06/29/2023 MPV 8.5 06/29/2023 Lab Results Component Value Date SODIUM 133 (L) 06/29/2023 POTASSIUM 4.3 06/29/2023 CHLORIDE 100 06/29/2023 CO2 25 06/29/2023 BUN 16 06/29/2023 CREATSERUM 0.82 06/29/2023 GLUCOSE 123 (H) 06/29/2023 No results found for: CRP Lab Results Component Value Date RESULTCULT FINEGOLDIA MAGNA 07/08/2023 RESULTCULT STAPHYLOCOCCUS EPIDERMIDIS 07/08/2023 . Lab Results Component Value Date GLUCOSE 123 (H) 06/29/2023 . Lab Results Component Value Date CALCIUM 9.5 06/29/2023 Lab Results Component Value Date ALBUMIN 4.1 06/29/2023 SIUM 06/29/2023 CHLORIDE 06/29/2023 CO2 09 Lab Results Component Value Date BILITOTAL 0.9 06/29/2023 Lab Results Component Value Date BUN 16 06/29/2023 ALKPHOS 51 06/29/2023 BILITOTAL 0.9 06/29/2023 BILIDIRECT 0.1 10/22/2015 No orders to display IMAGING MRI FOOT LEFT WITHOUT CONTRAST Result Date: 06/29/2023 EXAM: MRI FOOT LEFT WITHOUT CONTRAST COMPARISON: Left foot x-rays from 06/14/2023 and left foot MRI from 05/10/2023. HISTORY: Infection in the fourth toe. Evaluate for osteomyelitis. TECHNIQUE: Multiplanar and multisequence imaging of the left foot was performed without contrast. FINDINGS: Motion artifact degrades evaluation on this study. There is mild soft tissue swelling involving the fourth toewith mild subcutaneous edema. Correlation for clinical findings of cellulitis would be helpful. There is no well-defined abscess. There is no MRI evidence of osteomyelitis. There is no low T1 signal or bony destruction in the phalanges of the fourth toe. No fracture or dislocation is evident. Thereis no metatarsal stress fracture. The tarsometatarsal alignment is anatomic. There is mild joint space narrowing and spurring involving the first metatarsophalangeal joint. Flexor and extensor tendons and the midfoot and forefoot appear intact with no focal tendon tear. There is no focal tenosynovitis. No muscle edema is identified. IMPRESSION: 1. There is mild subcutaneous edema and soft tissue swelling of the fourth toe suspicious for cellulitis. 2. No MRI evidence of osteomyelitis. 3. No focal abscess. 4. No acute or healing fracture in the foot. MRI SPINE LUMBAR WITHOUT CONTRAST Result Date: 06/20/2023 TITLE: MRI SPINE LUMBAR WITHOUT CONTRAST COMPARISON: 2021 lumbar spine MRI CLINICAL HISTORY: Low back pain radiating to the sacroiliac joints TECHNIQUE: Sagittal T1, sagittal T2 FSE, sagittal STIR, and axial T2 FSE. FINDINGS: Alignment is normal. There is no listhesis nor vertebral body height loss. The conus medullaris terminates at L1-2 and appears normal. The visualized adjacent soft suggest asmall right renal cyst. Prominent dorsal epidural fat L1-L5.. New metallic hardware traversing the left sacroiliac joint. T12-L1: Normal disc space. No stenosis L1-L2:Mild disc bulge. No significant stenosis. L2-3: Diffuse disc bulge. Left foraminal extension. Bilateral facet hypertrophy. Mild central canal and moderate left-sided foraminal narrowing L3-4: Mild disc bulge. Mild tear in left lateral annulus. Bilateral facet hypertrophy. Mild to moderate central canal and left-sided foraminal narrowing L4-5: Disc space narrowing lateral disc and osteophyte formation. Central disc protrusion. Facet hypertrophy and prominent dorsal epidural fat. This results in moderate to severe central canal and moderate foraminal narrowing L5-S1: Mild disc bulge. Bilateral facet hypertrophy. There is no significant central canal and [id number] left-sided foraminal narrowing IMPRESSION: MODERATE MULTILEVEL DEGENERATIVE CHANGES OF THE LUMBAR SPINE PROMINENT DORSAL EPIDURAL FAT L1-L5 L2-3: DIFFUSE DISC BULGE WITH LEFT FORAMINAL DISC PROTRUSION SMALL ANNULAR TEAR L3-4 MODERATE TO SEVERE MULTIFACTORIAL CENTRAL STENOSIS L4-5 FACET HYPERTROPHY LOWER 2 LUMBAR LEVELS XR FOOT LEFT 3 VIEWS Result Date: 06/14/2023 EXAM: XR FOOT LEFT 3 VIEWS HISTORY: left 4th toe infection COMPARISON: 05/02/2023. FINDINGS: 3 weightbearing views were submitted. Again the fourth toe appears swollen. Fracture, opaque foreign body or bony erosion not identified. Spurs present plantar and posterior calcaneus. IMPRESSION: 1. Again there is soft tissue swelling fourth toe, osseous abnormality not identified. 2. Calcaneal spurs. XR SPINE LUMBAR W BENDING Result Date: 06/07/2023 EXAM: XR SPINE LUMBAR W BENDING HISTORY: Spondylosis of lumbar region without myelopathy or radiculopathy COMPARISON: None. TECHNIQUE: 5 views with flexion and extension Findings/impression: Satisfactory alignment. Maintained vertebral body heights. Multilevel disc disease and facet arthropathy of L3-S1. Intact hardware. No acute fracture or subluxation. Left-sided sacroiliac fixation. Intact hardware. Diagnosis/Plan: There are no diagnoses linked to this encounter. Complex left 4th toe infection -MRI 05/11 and 06/29 does not show clear osteomyelitis but does have soft tissue swelling -culture from 4th toe 05/17 with Staphylococcus epidermidis for thigh overgrowth only likely a contaminant; 05/05 negative; 05/02 with finegoldia -history of MRSA nares 04/21 negative -Keflex x 2, cefixime, levaquin and doxycycline course without clearance per history -concern for a deep-seated infection that is not being resolved with short courses of oral therapy -s/p operative procedure 07/08 with S epi and finegoldia. -there is no inciting trauma or events preceding this infection that the patient recalls including no bite injuries, soil, pedicures or other inciting events to suggest unusual organisms but this remains in the differential -Operative 07/08 finding no pus and MRI negative for OM; did debride down to tendon; specimens for bacterial aerobic and anaerobic showed S. Epi and Finegoldia on 07/08 -suspect the staph epi is not a true cause of a deep-seated infection given lack of hardware -S/p Augmentin 875 mg twice daily for the finegoldia, 07/13-07/24 -plan at least a three-week treatment course but possibly longer -Pending fungal and afb cultures 07/08 -Recurrent I&D for abscess on 07/21, cx negative -crp 11.7, ESR 11 -MRI: Worsening subcutaneous edema/cellulitis over the left fourth digit with new focal collection/abscess laterally. No osteomyelitis. -despite Augmentin and Zyvox as well as prior antibiotics including doxycycline, Levaquin and cephalosporins she continues to have a purulent abscess of her toe. -uric acid is normal and no history of gout per her report; consider noninfectious causes but none clear - she does have history of cancer but this is remote would be an odd presentation -plan to discuss with 2nd infectious disease provider -paperwork was admitted twice for insurance [facility] home antibiotics but this is not been approved for unclear reasons and we plan to follow up today with that issue. -patient agreeable to get peripheral IV ertapenem again we can do company further -TB and Fungitell of blood and send repeat cultures purulence 07/29 for AFB and fungal cultures -weekly cbc, cmp, and crp, esr ordered while on iv therapy Hx of DM +-patient denies a history of diabetes but this is in her record and states that she is not currently on any management. Previous BMP shows mildly elevated glucose. -a1c 5.5, 5.8 - normal range Healthcare maintenance -history of prior flu shots, would recommend flu shot this fall -history of pneumococcal conjugate and polysaccharide vaccines -history of tetanus vaccine 2017 -recommend keeping up-to-date on all recommended vaccines Left knee degenerative disease -operative management by Orthopedics is on hold pending resolution of toe infection Unclear cause of recurrent 4th toe abscess that are largely no responsive to po abx. Will give IV course, however, fungal and TB testing pending. Consider sending pathology of tissue if repeat surgery done in future. Repeat MRI does not show osteomyelitis fortunately late. Need to consider nonbacterial causes and further workup under way Return to clinic in 1 week 40 Min of care including discussions with insurance company, arranging for infusion center lab draw, secondary consultation, review of microbiology notes. Please note Portions of this note utilized [employer] and Tinder dictation software, please excuse any typographical or grammatical errors. documented in this [facility] [place]10-05-2023 History of Present illness Narrative* Joycelyn Calhoun MA - 07/28/2023 10:00 AM EDT Nurse Note: Review of Systems Constitutional: Negative for fatigue, fever and unexpected weight change. HENT: No difficulty swallowing No change in voice Respiratory: Negative for cough, shortness of breath and wheezing. Cardiovascular: Negative for chest pain, palpitations and leg swelling. Gastrointestinal: Negative for constipation, diarrhea, nausea and vomiting. Neurological: Negative for tremors, weakness and numbness. Psychiatric/Behavioral: Negative for sleep disturbance. The patient is not nervous/anxious. Nursing Assessment: Physical Exam * Dawn Uriarte DPM - 07/28/2023 10:00 AM EDT Patient Elena Galeano Date: 07/28/2023 Subjective: Elena is s/p I and D left 4th toe on 07/08/23. She goes to see dr. shipley tomorrow. Waiting on approval for PICC. History She is on updated antibiotics per dr. Shipley. She notes she is doing ok. She is on augmentin History that the toe is improving, but something is happening on the underside of the toe. History of the left 4th toe. She notes that she is on her 2nd round of keflex. She has had an xray a few days ago and some purulence drained from the toe a few days ago. A culture is pending. She notes that the toe has been bad for 3-4 months, but she really has had problems on and off for about a month. She does not remember any kind of trauma. Allergies Allergen Reactions Nsaids Has CKD-3a, and Anemia Current Outpatient Medications Medication Sig Albuterol (Ventolin HFA) 108 (90 Base) MCG/ACT Aero Soln inhaler Inhale 2 puffs every 6 hours as needed for Wheezing. Allopurinol 100 MG tablet Take 1 tablet by mouth daily. Amoxicillin-clavulanate 875-125 MG tablet Take 1 tablet by mouth every 12 hours for 10 days. apixaban 2.5 MG tablet 2.5 mg 2 tabs, BID- Lot # [id number] 08.15 buPROPion (Wellbutrin XL) 300 MG tablet XL Take 1 tablet by mouth every morning before breakfast. carveDILOL (Coreg) 12.5 MG tablet Take 1 tablet by mouth 2 times daily with meals. Given by Dr. Calderon Cetirizine 10 MG tablet Take 1 tablet by mouth daily as needed for Allergies. OTC Clindamycin Phos-Benzoyl Perox 1.2-3.75 % Gel Apply 1 Application topically daily. Given by Dermatology Dr. Dejesus Clopidogrel 75 MG tablet Take 1 tablet by mouth daily. cyanocobalamin 1000 MCG tablet Take 1 tablet by mouth daily. Chew 1 tab q daily Evolocumab (Repatha SureClick) 140 MG/ML Solution Auto-injector injection Inject 1 mL under the skin every 14 days. (Patient taking differently: Inject 1 mL under the skin every 14 days. Last dose 06/17/2023) fenofibrate 160 MG tablet Take 1 tablet by mouth daily. Folic acid 1 MG tablet Take 1 tablet by mouth daily. Linezolid (Zyvox) 600 MG tablet Take 1 tablet by mouth 2 times daily for 14 days. Lisinopril 5 MG tablet Take 1 tablet by mouth daily. Cancel previous refills magnesium oxide 400 (240 Mg) MG Take 1 tablet by mouth daily. OTC Mupirocin 2 % ointment Apply topical TID for 7 days Pantoprazole (Protonix) [address] tablet DR Take 1 tablet by mouth 2 times daily (take before meals). traZODone 100 MG tablet Take 1 tablet by mouth at bedtime. triamterene-hydrochlorothiazide (Dyazide) 37.5-25 MG per capsule Take 1 capsule by mouth daily. Cancel previous refills hydroCODone-acetaminophen 5-325 MG tablet Take 1 tablet by mouth every 4 hours as needed for Moderate Pain for up to 3 days. Past Medical History: Diagnosis Date A-fib Anemia low Fe Arrhythmia Arthritis ASCUS of cervix with negative high risk HPV Asthma not asthma B12 deficiency Carotid stenosis, bilateral-Right 30%, and left 60% Central retinal artery occlusion of left eye CKD (chronic kidney disease) stage 3, GFR 30-59 ml/min-3a patient denies CLL (chronic lymphocytic leukemia) 2011 [id number] on 09-30-2020 Depression Diffuse non-Hodgkin's lymphoma chemotherapy Folate deficiency GERD (gastroesophageal reflux disease) Gout pt denies Hiatal hernia pt denies Hyperglycemia Hyperlipidemia LDL goal <70 Hypertension Hyponatremia Liver disease fatty liver Non-Hodgkin lymphoma 2011 in remission PERCY (obstructive sleep apnea) PVC's (premature ventricular contractions) 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 (blindness) Past Surgical History: Procedure Laterality Date I&D BURSA FOOT Left 07/08/2023 Laterality: Left; Surgeon: Dawn Uriarte DPM; Location: [facility] OR INJECTION NERVE OTHER PERIPHERAL Left 12/16/2022 Laterality: Left; Surgeon: Isreal Sigala MD; Location: [facility] OR GUIDANCE FLUOROSCOPIC NEEDLE OR CATHETER PLACEMENT FOR SPINE INJECTION ADD-ON PX Left 12/16/2022 Laterality: Left; Surgeon: Isreal Sigala MD; Location: [facility] OR SUSPENSION URETHRA/URETHROVESICAL FEMALE OPEN W/ SYNTHETIC MATERIAL (SLING) Midline 08/31/2022 Laterality: Midline; Surgeon: Dariusz Rangel MD; Location: [facility] OR CYSTOURETHROSCOPY W/ DILATION BLADDER Midline 08/31/2022 Laterality: Midline; Surgeon: Dariusz Rangel MD; Location: [facility] OR COLPORRHAPHY ANTEROPOSTERIOR REPAIR CYSTOCELE & RECTOCELE Midline 08/31/2022 Laterality: Midline; Surgeon: Dariusz Rangel MD; Location: [facility] OR ARTHRODESIS SACROILIAC JOINT MINIMALLY INVASIVE W/ TRANSFIXING DEVICE Left 06/17/2022 Laterality: Left; Surgeon: Isreal Sigala MD; Location: [facility] OR GUIDANCE FLUOROSCOPIC NEEDLE OR CATHETER PLACEMENT FOR SPINE INJECTION ADD-ON PX Left 06/17/2022 Laterality: Left; Surgeon: Isreal Sigala MD; Location: [facility] OR EGD W/ DILATION BALLOON N/A 12/01/2021 Laterality: N/A; Surgeon: Indra Parrish DO; Location: [facility]OSCOPY SHOULDER ARTHROSCOPY Left 06/18/2021 REMOVAL CENTRAL VENOUS ACCESS DEVICE TUNNELED W/ PORT PUMP Left 09/13/2019 Laterality: Left; Surgeon: Eduardo Muñoz MD; Location: [facility] INTERVENTIONAL RADIOLOGY (VIR) EGD W/ DILATION BALLOON N/A 06/30/2018 Laterality: N/A; Surgeon: Indra Parrish DO; Location: [facility] EGD DIAGNOSTIC N/A 04/07/2018 Laterality: N/A; Surgeon: Wilner Leigh MD; Location: [facility] COLONOSCOPY DIAGNOSTIC N/A 04/07/2018 Laterality: N/A; Surgeon: Wilner Leigh MD; Location: [facility] ENDOSCOPY KNEE REPLACEMENT Right 05/2015 done at [place]--CC ARTHROPLASTY KNEE TOTAL Right 04/2015 INSERTION PICC W/ PORT PUMP 2014 power port COLONOSCOPY DIAGNOSTIC 2006 SALPINGO-OOPHORECTOMY OPEN N/A 1983 APPENDECTOMY OPEN 1983 TONSILLECTOMY ADENOIDECTOMY 1967 EGD DIAGNOSTIC 10 months ago Social History Occupational History Employer: RETIRED Tobacco Use Smoking status: Former Packs/day: 0.75 Years: 35.00 Additional pack years: 0.00 Total pack years: 26.25 Types: Cigarettes Quit date: 04/23/2013 Years since quittin.2 Smokeless tobacco: Never Vaping Use Vaping Use: Never used Substance and Sexual Activity Alcohol use: Yes Alcohol/week: 2.0 standard drinks of alcohol Types: 2 Cans of beer per week Drug use: Never Sexual activity: Not Currently control/protection: Menopause ROS: Review of Systems Nurse Note: Review of Systems Constitutional: Negative for fatigue, fever and unexpected weight change. HENT: No difficulty swallowing No change in voice Respiratory: Negative for cough, shortness of breath and wheezing. Cardiovascular: Negative for chest pain, palpitations and leg swelling. Gastrointestinal: Negative for constipation, diarrhea, nausea and vomiting. Neurological: Negative for tremors, weakness and numbness. Psychiatric/Behavioral: Negative for sleep disturbance. The patient is not nervous/anxious. Nursing Assessment: Physical Exam Objective: Vitals: 07/28/23 0940 BP: 160/80 Pulse: 81 Objective: Vascular: Dorsalis pedis and posterior tibial pulses are readilly palpable and graded at 2/4 bilateral. Dermatological: Left 4th toe with swelling and mild erythema. The plantar incision is healed. The dorsal incision is healed, there are two small areas that if you squeeze the toe yellow purulence comes out MRI FOOT LEFT WITHOUT CONTRAST Result Date: 05/10/2023 EXAM: MRI FOOT LEFT WITHOUT CONTRAST HISTORY: For stress swelling and abscess. Rule out osteomyelitis COMPARISON: None. TECHNIQUE: Multiplanar MRI of left foot was performed without contrast in sagittal, coronal and axial planes using T1, T2 and STIR pulsing sequences FINDINGS: Bony structures of left foot including visualized tarsal bones, metatarsals and phalanges demonstrate no evidence of fracture or contusion. No dislocation is seen. Small joint effusion is seen in the first metatarsophalangeal joint. Subtle marrow edema is suspected involving the fourth distal phalanx without bony destructive changes or abnormal T1 signal. No cortical disruption is seen to suggest osteomyelitis. The flexor and extensor tendons appear intact. Visualized plantar fascia appears intact. Collateral ligaments appear intact. Lisfranc ligament is visualized and appears intact. Evidence of superficial veindeep soft tissue edema involving fourth toe without focal collections. Muscles demonstrate normal signal. IMPRESSION: Soft tissue edema 4th distal phalanx without T1 abnormality or cortical disruption to suggest osteomyelitis. XR FOOT LEFT 3 VIEWS Result Date: 05/02/2023 EXAM: XR FOOT LEFT 3 VIEWS HISTORY: infection, redness, drainage of left 4th toe. COMPARISON: None available. FINDINGS: 3 views of the left foot were obtained. These were AP, oblique and lateral views weightbearing I do not specifically see any evidence of fracture or dislocation. There are no peria rticular calcifications, erosions or obvious signs of osteomyelitis. No soft tissue air is seen. The fourth digit appears prominently swollen IMPRESSION: 1. Prominent soft tissue swelling of the fourth digit of the left foot. 2. I do not seeany evidence of fracture, dislocation, advanced arthropathy or osteomyelitis. Assessment: Elena was seen today for ulcer and follow-up. Diagnoses and all orders for this visit: Cellulitis and abscess of toe of left foot - MRI FOOT LEFT WITHOUT CONTRAST; Future Skin ulcer of fourth toe of left foot with fat layer exposed - MRI FOOT LEFT WITHOUT CONTRAST; Future acute complicated, limb threatening diagnosis Plan: Patient was seen and evaluated today STAT MRI ordered- she will have this done tomorrow in [place] at 9am 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 shipley tomorrow. Hopefully she will get the PICC and IV antibiotics so that we can save this toe. Daily dressing changes At risk of amputation of toe Follow up in 2 week documented in this [facility] [place]09-29-2023 History of Present illness Narrative* Sarah Edmondson MA - 07/22/2023 8:15 AM EDT Review of Systems A complete review of systems are negative except those consistent with HPI No fevers, chills or sweats No cough, chest pain No dysphagia, odynophagia No abdominal pain, nausea, vomiting, diarrhea No dysuria, frequency, hematuria No headache, dizziness, focal neurologic complaints No ear pain No sinus pain No rash No weight loss No joint or muscular pain Recent travel history? No * Monse Shipley MD - 07/22/2023 8:15 AM EDT HPI Elena Galeano 63 y.o. female presents today for Toe Pain (4th toe on left foot from great toe. Dr. Uriarte debrided abscess on Sunday 07/15. No ATBs prescribed from him. ) Patient states ID consult appointment in June of 2023 that she is longstanding history of for several months of a left toe infection. She denies any specific trauma or inciting event that started this all. Past medical history includes stroke, AFib, left eye blindness, CLL and diffuse non-Hodgkin's lymphoma history status post chemotherapy s/p 10 yrs ago, GERD, hyperlipidemia, hypertension, DMII per record, fatty liver disease, obstructive sleep apnea, obesity, anemia, history of COVID. 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 Blackwood. History of former tobacco use, not current. No significant alcohol use, occasional. No illicit abx. No animal bites/scratches, no trauma noted, no barefoot outdoor walking. No hx of gout Patient was seen by Podiatry 05/05/2023 due to ingrown toenail of the 4th left toe ongoing issues for about 3 months at that time per notes with 2 courses of Keflex given at that time. Podiatry diagnosed with a patient with concerns for abscess and cellulitis of the distal 4th toe on 05/05 and MRI was ordered but was negative on 05/10 for deeper infection at that time. Patient was treated with local mupirocin and antibiotic oral course of cefixime. Patient was then treated in the May timeframe with a course of Levaquin per Podiatry and then a course of doxycycline for 14 days new x-ray ordered showing soft tissue swelling on 06/14 without clear bony disease. Patient was then seen on 06/28by Podiatry and a repeat MRI was order due to concern for osteomyelitis of the 4th toe per Podiatryalthough radiology report was negative from 06/29. Hx significant for recurrent purulence reported and patient was referred at this visit to Infectious Disease for IV antibiotics as well as plans forsurgical debridement with an incision and drainage pending for 07/08 with consideration of hyperbaric treatment as well noted No known allergies to antibiotics noted ID consult visit 07/04/2023 Patient denies any fevers or chills. Does note some sweats. No systemic symptoms otherwise. Denies any significant left toe pain. She states that there is a pocket in her plantar area that she believes is collecting fluid and then she has intermittent drainage from this area. ID clinic follow up 07/13, she is status post surgery by Podiatry on 07/08 for incision and drainageof left 4th toe with abscess and cellulitis reported. There was no gross purulence for operative report and cultures were taken. Patient here for follow up of culture data. The culture data was obtained yesterday and plans for adjustment of antibiotics today. Patient denies any fevers chills or sweats. Culture shows Staphylococcus epidermidis rare which is likely a contaminant, resistant to clindamycin and penicillin but otherwise sensitive. Patient also grew Finegoldia. AFB and fungal stains/cultures are pending. Patient's foot is currently dressed, no significant pain noted. No other complai nts reported F/up 07/18, on augmentin. Tolerating well. Some left 4th toe pain, sutures in place. F/up podiatry today. No f/c/s. No other symptoms on ROS. Patient was started on Augmentin 07/13 but not note any significant improvement in pain or discomfort. Some blood on drainage but no other discharge and no purulence noted. No tracking cellulitis. ID clinic 07/22, messaged by podiatry to see patient today for iv abx as new abscess formed again on4th toe and I&D again on 07/21 with new cx taken. NO inciting event and no pedicures of recent. No trauma. ROS Review of Systems A complete review of systems are negative except those consistent with HPI No fevers, chills or sweats No cough, chest pain No dysphagia, odynophagia No abdominal pain, nausea, vomiting, diarrhea No dysuria, frequency, hematuria No headache, dizziness, focal neurologic complaints No ear pain No sinus pain No rash No weight loss No joint or muscular pain Recent travel history? No HISTORY/ALLERGIES/MEDS Allergies Allergen Reactions Nsaids Has CKD-3a, and Anemia Past Medical History: Diagnosis Date A-fib Anemia low Fe Arrhythmia Arthritis ASCUS of cervix with negative high risk HPV Asthma not asthma B12 deficiency Carotid stenosis, bilateral-Right 30%, and left 60% Central retinal artery occlusion of left eye CKD (chronic kidney disease) stage 3, GFR 30-59 ml/min-3a patient denies CLL (chronic lymphocytic leukemia) 2011 [id number] on 09-30-2020 Depression Diffuse non-Hodgkin's lymphoma chemotherapy Folate deficiency GERD (gastroesophageal reflux disease) Gout pt denies Hiatal hernia pt denies Hyperglycemia Hyperlipidemia LDL goal <70 Hypertension Hyponatremia Liver disease fatty liver Non-Hodgkin lymphoma 2012 in remission PERCY (obstructive sleep apnea) PVC's (premature ventricular contractions) 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 (blindness) Past Surgical History: Procedure Laterality Date I&D BURSA FOOT Left 07/08/2023 Laterality: Left; Surgeon: Dawn Uriarte DPM; Location: [facility] OR INJECTION NERVE OTHER PERIPHERAL Left 12/16/2022 Laterality: Left; Surgeon: Isreal Sigala MD; Location: [facility] OR GUIDANCE FLUOROSCOPIC NEEDLE OR CATHETER PLACEMENT FOR SPINE INJECTION ADD-ON PX Left 12/16/2022 Laterality: Left; Surgeon: Isreal Sigala MD; Location: [facility] OR SUSPENSION URETHRA/URETHROVESICAL FEMALE OPEN W/ SYNTHETIC MATERIAL (SLING) Midline 08/31/2022 Laterality: Midline; Surgeon: Dariusz Rangel MD; Location: [facility] OR CYSTOURETHROSCOPY W/ DILATION BLADDER Midline 08/31/2022 Laterality: Midline; Surgeon: Dariusz Rangel MD; Location: [facility] OR COLPORRHAPHY ANTEROPOSTERIOR REPAIR CYSTOCELE & RECTOCELE Midline 08/31/2022 Laterality: Midline; Surgeon: Dariusz Rangel MD; Location: [facility] OR ARTHRODESIS SACROILIAC JOINT MINIMALLY INVASIVE W/ TRANSFIXING DEVICE Left 06/17/2022 Laterality: Left; Surgeon: Isreal Sigala MD; Location: [facility] OR GUIDANCE FLUOROSCOPIC NEEDLE OR CATHETER PLACEMENT FOR SPINE INJECTION ADD-ON PX Left 06/17/2022 Laterality: Left; Surgeon: Isreal Sigala MD; Location: [facility] OR EGD W/ DILATION BALLOON N/A 12/01/2021 Laterality: N/A; Surgeon: Indra Parrish DO; Location: [facility]OS[facility] SHOULDER ARTHROSCOPY Left 06/18/2021 REMOVAL CENTRAL VENOUS ACCESS DEVICE TUNNELED W/ PORT PUMP Left 09/13/2019 Laterality: Left; Surgeon: Eduardo Muñoz MD; Location: [facility] INTERVENTIONAL RADIOLOGY (VIR) EGD W/ DILATION BALLOON N/A 06/30/2018 Laterality: N/A; Surgeon: Indra Parrish DO; Location: [facility] EGD DIAGNOSTIC N/A 04/07/2018 Laterality: N/A; Surgeon: Wilner Leigh MD; Location: [facility] COLONOSCOPY DIAGNOSTIC N/A 04/07/2018 Laterality: N/A; Surgeon: Wilner Leigh MD; Location: [facility] KNEE REPLACEMENT Right 05/2015 done at [place]--CC ARTHROPLASTY KNEE TOTAL Right 04/2015 INSERTION PICC W/ PORT PUMP 2014 power port COLONOSCOPY DIAGNOSTIC 2006 SALPINGO-OOPHORECTOMY OPEN N/A 1983 APPENDECTOMY OPEN 1983 TONSILLECTOMY ADENOIDECTOMY 1968 EGD DIAGNOSTIC 10 months ago Social History Socioeconomic History Marital status: Spouse name: Not on file Number of children: Not on file Years of education: Not on file Highest education level: Not on file Occupational History Employer: RETIRED Tobacco Use Smoking status: Former Packs/day: 0.75 Years: 35.00 Additional pack years: 0.00 Total pack years: 26.25 Types: Cigarettes Quit date: 04/23/2013 Years since quittin.2 Smokeless tobacco: Never Vaping Use Vaping Use: Never used Substance and Sexual Activity Alcohol use: Yes Alcohol/week: 2.0 standard drinks of alcohol Types: 2 Cans of beer per week Drug use: Never Sexual activity: Not Currently control/protection: Menopause Other Topics Concern Service Not Asked Blood Transfusions Not Asked Caffeine Concern Not Asked Occupational Exposure Not Asked Hobby Hazards Not Asked Sleep Concern Not Asked Stress Concern Not Asked Weight Concern Not Asked Special Diet Not Asked Back Care Not Asked Exercise Not Asked Bike Helmet Not Asked Seat Belt Not Asked Domestic Violence No Social History Narrative Not on file Social Determinants of Health Financial Resource Strain: Not on file Food Insecurity: Not on file Transportation Needs: Not on file Physical Activity: Not on file Stress: Not on file Social Connections: Not on file Intimate Partner Violence: Not on file Housing Stability: Not on file Family History Problem Relation Age of Onset Hypertension Mother Lipid Disorder Mother Depression Mother Clotting Disorder Mother hx of DVT Dementia Father Arrhythmia Father A-Fib Anesth Problems Sister post-op n/v Breast Cancer Maternal Aunt Cancer- Other Maternal Uncle melanoma Ovarian Cancer Paternal Aunt Cancer Paternal Aunt brain Lung Cancer Maternal Grandfather Hypertension Son Lipid Disorder Daughter No known problems Daughter Autism Grandson Current Outpatient Medications: Albuterol (Ventolin HFA) 108 (90 Base) MCG/ACT Aero Soln inhaler, Inhale 2 puffs every 6 hours as needed for Wheezing., Disp: 18 g, Rfl: 0 Allopurinol 100 MG tablet, Take 1 tablet by mouth daily., Disp: 90 tablet, Rfl: 3 Amoxicillin-clavulanate 875-125 MG tablet, Take 1 tablet by mouth every 12 hours for 10 days., Disp: 20 tablet, Rfl: 0 apixaban 2.5 MG tablet, 2.5 mg 2 tabs, BID- Lot # [id number] - 08.15, Disp: 56 tablet, Rfl: 0 buPROPion (Wellbutrin XL) 300 MG tablet XL, Take 1 tablet by mouth every morning before breakfast.,Disp: 90 tablet, Rfl: 0 carveDILOL (Coreg) 12.5 MG tablet, Take 1 tablet by mouth 2 times daily with meals. Given by Dr. Calderon, Disp: , Rfl: Cetirizine 10 MG tablet, Take 1 tablet by mouth daily as needed for Allergies. OTC, Disp: , Rfl: Clindamycin Phos-Benzoyl Perox 1.2-3.75 % Gel, Apply 1 Application topically daily. Given by Dermatology Dr. Dejesus, Disp: , Rfl: Clopidogrel 75 MG tablet, Take 1 tablet by mouth daily., Disp: 90 tablet, Rfl: 3 cyanocobalamin 1000 MCG tablet, Take 1 tablet by mouth daily. Chew 1 tab q daily, Disp: 90 tablet, Rfl: 0 Evolocumab (Repatha SureClick) 140 MG/ML Solution Auto-injector injection, Inject 1 mL under the skin every 14 days. (Patient taking differently: Inject 1 mL under the skin every 14 days. Last dose 06/17/2023), Disp: 2 mL, Rfl: 11 fenofibrate 160 MG tablet, Take 1 tablet by mouth daily., Disp: 90 tablet, Rfl: 3 Folic acid 1 MG tablet, Take 1 tablet by mouth daily., Disp: 90 tablet, Rfl: 0 Lisinopril 5 MG tablet, Take 1 tablet by mouth daily. Cancel previous refills, Disp: 90 tablet, Rfl: 0 magnesium oxide 400 (240 Mg) MG, Take 1 tablet by mouth daily. OTC, Disp: , Rfl: Mupirocin 2 % ointment, Apply topical TID for 7 days, Disp: 30 g, Rfl: 0 Pantoprazole (Protonix) [address] tablet DR, Take 1 tablet by mouth 2 times daily (take before meals)., Disp: 180 tablet, Rfl: 0 traZODone 100 MG tablet, Take 1 tablet by mouth at bedtime., Disp: 90 tablet, Rfl: 0 triamterene-hydrochlorothiazide (Dyazide) 37.5-25 MG per capsule, Take 1 capsule by mouth daily. Cancel previous refills, Disp: 90 capsule, Rfl: 3 hydroCODone-acetaminophen 5-325 MG tablet, Take 1 tablet by mouth every 4 hours as needed for Moderate Pain for up to 3 days., Disp: 18 tablet, Rfl: 0 EXAM BP 128/72 (BP Location: Right arm, BP Position: Sitting) Pulse 82 Temp 96.8 F (36 C) (Temporal) Resp 18 Ht 1.651 m (5' 5) Wt 94.8 kg (209 lb) SpO2 97% BMI 34.78 kg/m Smoking Status Former Physical Exam Vitals and nursing note reviewed. Constitutional: General: She is not in acute distress. Appearance: Normal appearance. HENT: Head: Normocephalic and atraumatic. Mouth/Throat: Pharynx: Oropharynx is clear. No oropharyngeal exudate. Eyes: Extraocular Movements: Extraocular movements intact. Conjunctiva/sclera: Conjunctivae normal. Pupils: Pupils are equal, round, and reactive to light. Cardiovascular: Rate and Rhythm: Normal rate and regular rhythm. Pulses: Normal pulses. Heart sounds: Normal heart sounds. No murmur heard. Pulmonary: Effort: Pulmonary effort is normal. No respiratory distress. Breath sounds: Normal breath sounds. No rhonchi or rales. Abdominal: General: Bowel sounds are normal. There is no distension. Palpations: Abdomen is soft. Tenderness: There is no abdominal tenderness. There is no guarding. Genitourinary: Comments: No CVA or suprapubic tenderness Musculoskeletal: General: No swelling or tenderness. Normal range of motion. Cervical back: Normal range of motion and neck supple. No rigidity. Comments: Left 4th toe s/p surgery, sutures in place, wound noted. No significant drainage. Does have tenderness and some erythema particularly lateral on examination Skin: General: Skin is warm and dry. Findings: No rash. Neurological: General: No focal deficit present. Mental Status: She is alert. Psychiatric: Mood and Affect: Mood normal. Behavior: Behavior normal. Thought Content: Thought content normal. LABS CBC Lab Results Component Value Date WBC 6.6 06/29/2023 HGB 13.2 06/29/2023 HCT 39.1 06/29/2023 PLATELET 218 06/29/2023 MCV 97.4 06/29/2023 EDIF Lab Results Component Value Date RBCDISTRIBU 14.0 06/29/2023 GRNLOCYT 43.5 09/29/2022 LYMPHOCYT 45.1 09/29/2022 MONOCYTELEC 9.2 09/29/2022 EOSINOPHILS 1.2 04/21/2023 EOSINOPHILS 0.1 04/21/2023 BASOPHILS 0.6 04/21/2023 BASOPHILS 0.0 04/21/2023 GRNLOCTYABS 3.0 11/03/2016 LYMPHOCYTABS 1.8 04/21/2023 MONOSABSOLU 0.5 11/03/2016 EOSINOPHLABS 0.09 09/29/2022 BASOPHILSABS 0.1 11/03/2016 PLATELET 218 06/29/2023 MPV 8.5 06/29/2023 EDIF Lab Results Component Value Date RBCDISTRIBU 14.0 06/29/2023 GRNLOCYT 43.5 09/29/2022 LYMPHOCYT 45.1 09/29/2022 MONOCYTELEC 9.2 09/29/2022 EOSINOPHILS 1.2 04/21/2023 EOSINOPHILS 0.1 04/21/2023 BASOPHILS 0.6 04/21/2023 BASOPHILS 0.0 04/21/2023 GRNLOCTYABS 3.0 11/03/2016 LYMPHOCYTABS 1.8 04/21/2023 MONOSABSOLU 0.5 11/03/2016 EOSINOPHLABS 0.09 09/29/2022 BASOPHILSABS 0.1 11/03/2016 PLATELET 218 06/29/2023 MPV 8.5 06/29/2023 ESR Lab Results Component Value Date RBCDISTRIBU 14.0 06/29/2023 GRNLOCYT 43.5 09/29/2022 LYMPHOCYT 45.1 09/29/2022 MONOCYTELEC 9.2 09/29/2022 EOSINOPHILS 1.2 04/21/2023 EOSINOPHILS 0.1 04/21/2023 BASOPHILS 0.6 04/21/2023 BASOPHILS 0.0 04/21/2023 GRNLOCTYABS 3.0 11/03/2016 LYMPHOCYTABS 1.8 04/21/2023 MONOSABSOLU 0.5 11/03/2016 EOSINOPHLABS 0.09 09/29/2022 BASOPHILSABS 0.1 11/03/2016 PLATELET 218 06/29/2023 MPV 8.5 06/29/2023 Lab Results Component Value Date SODIUM 133 (L) 06/29/2023 POTASSIUM 4.3 06/29/2023 CHLORIDE 100 06/29/2023 CO2 25 06/29/2023 BUN 16 06/29/2023 CREATSERUM 0.82 06/29/2023 GLUCOSE 123 (H) 06/29/2023 No results found for: CRP Lab Results Component Value Date RESULTCULT FINEGOLDIA MAGNA 07/08/2023 RESULTCULT STAPHYLOCOCCUS EPIDERMIDIS 07/08/2023 . Lab Results Component Value Date GLUCOSE 123 (H) 06/29/2023 . Lab Results Component Value Date CALCIUM 9.5 06/29/2023 Lab Results Component Value Date ALBUMIN 4.1 06/29/2023 SIUM 06/29/2023 CHLORIDE 06/29/2023 CO2 09 Lab Results Component Value Date BILITOTAL 0.9 06/29/2023 Lab Results Component Value Date BUN 16 06/29/2023 ALKPHOS 51 06/29/2023 BILITOTAL 0.9 06/29/2023 BILIDIRECT 0.1 10/22/2015 No orders to display IMAGING MRI FOOT LEFT WITHOUT CONTRAST Result Date: 06/29/2023 EXAM: MRI FOOT LEFT WITHOUT CONTRAST COMPARISON: Left foot x-rays from 06/14/2023 and left foot MRI from 05/10/2023. HISTORY: Infection in the fourth toe. Evaluate for osteomyelitis. TECHNIQUE: Multiplanar and multisequence imaging of the left foot was performed without contrast. FINDINGS: Motion artifact degrades evaluation on this study. There is mild soft tissue swelling involving the fourth toewith mild subcutaneous edema. Correlation for clinical findings of cellulitis would be helpful. There is no well-defined abscess. There is no MRI evidence of osteomyelitis. There is no low T1 signal or bony destruction in the phalanges of the fourth toe. No fracture or dislocation is evident. Thereis no metatarsal stress fracture. The tarsometatarsal alignment is anatomic. There is mild joint space narrowing and spurring involving the first metatarsophalangeal joint. Flexor and extensor tendons and the midfoot and forefoot appear intact with no focal tendon tear. There is no focal tenosynovitis. No muscle edema is identified. IMPRESSION: 1. There is mild subcutaneous edema and soft tissue swelling of the fourth toe suspicious for cellulitis. 2. No MRI evidence of osteomyelitis. 3. No focal abscess. 4. No acute or healing fracture in the foot. MRI SPINE LUMBAR WITHOUT CONTRAST Result Date: 06/20/2023 TITLE: MRI SPINE LUMBAR WITHOUT CONTRAST COMPARISON: 2021 lumbar spine MRI CLINICAL HISTORY: Low back pain radiating to the sacroiliac joints TECHNIQUE: Sagittal T1, sagittal T2 FSE, sagittal STIR, and axial T2 FSE. FINDINGS: Alignment is normal. There is no listhesis nor vertebral body height loss. The conus medullaris terminates at L1-2 and appears normal. The visualized adjacent soft suggest asmall right renal cyst. Prominent dorsal epidural fat L1-L5.. New metallic hardware traversing the left sacroiliac joint. T12-L1: Normal disc space. No stenosis L1-L2:Mild disc bulge. No significant stenosis. L2-3: Diffuse disc bulge. Left foraminal extension. Bilateral facet hypertrophy. Mild central canal and moderate left-sided foraminal narrowing L3-4: Mild disc bulge. Mild tear in left lateral annulus. Bilateral facet hypertrophy. Mild to moderate central canal and left-sided foraminal narrowing L4-5: Disc space narrowing lateral disc and osteophyte formation. Central disc protrusion. Facet hypertrophy and prominent dorsal epidural fat. This results in moderate to severe central canal and moderate foraminal narrowing L5-S1: Mild disc bulge. Bilateral facet hypertrophy. There is no significant central canal and [id number] left-sided foraminal narrowing IMPRESSION: MODERATE MULTILEVEL DEGENERATIVE CHANGES OF THE LUMBAR SPINE PROMINENT DORSAL EPIDURAL FAT L1-L5 L2-3: DIFFUSE DISC BULGE WITH LEFT FORAMINAL DISC PROTRUSION SMALL ANNULAR TEAR L3-4 MODERATE TO SEVERE MULTIFACTORIAL CENTRAL STENOSIS L4-5 FACET HYPERTROPHY LOWER 2 LUMBAR LEVELS XR FOOT LEFT 3 VIEWS Result Date: 06/14/2023 EXAM: XR FOOT LEFT 3 VIEWS HISTORY: left 4th toe infection COMPARISON: 05/02/2023. FINDINGS: 3 weightbearing views were submitted. Again the fourth toe appears swollen. Fracture, opaque foreign body or bony erosion not identified. Spurs present plantar and posterior calcaneus. IMPRESSION: 1. Again there is soft tissue swelling fourth toe, osseous abnormality not identified. 2. Calcaneal spurs. XR SPINE LUMBAR W BENDING Result Date: 06/07/2023 EXAM: XR SPINE LUMBAR W BENDING HISTORY: Spondylosis of lumbar region without myelopathy or radiculopathy COMPARISON: None. TECHNIQUE: 5 views with flexion and extension Findings/impression: Satisfactory alignment. Maintained vertebral body heights. Multilevel disc disease and facet arthropathy of L3-S1. Intact hardware. No acute fracture or subluxation. Left-sided sacroiliac fixation. Intact hardware. Diagnosis/Plan: There are no diagnoses linked to this encounter. Complex left 4th toe infection -MRI 05/11 and 06/29 does not show clear osteomyelitis but does have soft tissue swelling -culture from 4th toe 05/17 with Staphylococcus epidermidis for thigh overgrowth only likely a contaminant; 05/05 negative; 05/02 with finegoldia -history of MRSA nares 04/21 negative -Keflex x 2, cefixime, levaquin and doxycycline course without clearance per history -concern for a deep-seated infection that is not being resolved with short courses of oral therapy -s/p operative procedure 07/08 with S epi and finegoldia. -there is no inciting trauma or events preceding this infection that the patient recalls including no bite injuries, soil, pedicures or other inciting events to suggest unusual organisms but this remains in the differential -Operative 07/08 finding no pus and MRI negative for OM; did debride down to tendon; specimens for bacterial aerobic and anaerobic showed S. Epi and Finegoldia on 07/08 -suspect the staph epi is not a true cause of a deep-seated infection given lack of hardware -S/p Augmentin 875 mg twice daily for the finegoldia, 07/13-07/24 -plan at least a three-week treatment course but possibly longer -Pending fungal and afb cultures 07/08 -Recurrent I&D for abscess on 07/21, cx pending -crp 11.7, ESR 11 -follow up in ID clinic on Tuesday as the patient does not show improvement on the current treatmentregimen; hence we will plan on IV ertapenem and zyvox; PICC line; weekly labs, duration for approximately 3 weeks -weekly cbc, cmp, and crp, esr ordered while on iv therapy -Coupon for zyvox DM -patient denies a history of diabetes but this is in her record and states that she is not currently on any management. Previous BMP shows mildly elevated glucose. -Check a1c 5.5 - no DM Healthcare maintenance -history of prior flu shots, would recommend flu shot this fall -history of pneumococcal conjugate and polysaccharide vaccines -history of tetanus vaccine 2017 -recommend keeping up-to-date on all recommended vaccines Left knee degenerative disease -operative management by Orthopedics is on hold pending resolution of toe infection Unclear cause of recurrent 4th toe abscess that are largely no responsive to po abx. Will give IV course, however, fungal and TB testing pending. Consider sending pathology of tissue if repeat surgery done. Return to clinic in 1 week 31 Min of care including picc and iv abx set up Please note Portions of this note utilized [employer] and Tinder dictation software, please excuse any typographical or grammatical errors. documented in this encounterProm[facility]23 Miscellaneous Notes* Addendum Note - Sarah Edmondson MA - 07/22/2023 8:15 AM EDTAddended by: SARAH EDMONDSON on: 07/22/2023 09:12 AM Modules accepted: Orders * Addendum Note - Sarah Edmondson MA - 07/22/2023 8:15 AM EDTAddended by: SARAH EDMONDSON on: 07/22/2023 02:51 PM Modules accepted: Orders documented in this encounterPromedica [facility]09-29-2023 Note* Addendum Note - Sarah Edmodnson MA - 07/22/2023 8:15 AM EDTAddended by: SARAH EDMONDSON on: 07/22/2023 09:12 AM Modules accepted: Orders [facility] Note* Addendum Note - Sarah Edmondson MA - 07/22/2023 8:15 AM EDTAddended by: SARAH EDMONDSON on: 07/22/2023 02:51 PM Modules accepted: Orders [facility] History of Present illness Narrative* Dragan Candelaria LPN - 07/21/2023 1:50 PM EDT Nurse Note: Review of Systems Constitutional: Negative for chills and fever. Respiratory: Negative for shortness of breath. Cardiovascular: Negative for chest pain and leg swelling. Endocrine: Negative for cold intolerance and heat intolerance. Musculoskeletal: Negative for gait problem and joint swelling. Neurological: Negative for numbness. Psychiatric/Behavioral: The patient is not nervous/anxious. Nursing Assessment: Physical Exam * Dawn Uriarte DPM - 07/21/2023 1:50 PM EDTAssociated Order(s): INCISION AND DRAINAGE Post-Procedure Diagnose(s): Cellulitis and abscess of toe of left foot Patient Elena Galeano Date: 07/21/2023 Subjective: Elena is s/p I and D left 4th toe on 07/08/23. History She is on updated antibiotics per dr. Shipley. She notes she is doing ok. She is on augmentin History that the toe is improving, but something is happening on the underside of the toe. History of the left 4th toe. She notes that she is on her 2nd round of keflex. She has had an xray a few days ago and some purulence drained from the toe a few days ago. A culture is pending. She notes that the toe has been bad for 3-4 months, but she really has had problems on and off for about a month. She does not remember any kind of trauma. Allergies Allergen Reactions Nsaids Has CKD-3a, and Anemia Current Outpatient Medications Medication Sig Albuterol (Ventolin HFA) 108 (90 Base) MCG/ACT Aero Soln inhaler Inhale 2 puffs every 6 hours as needed for Wheezing. Allopurinol 100 MG tablet Take 1 tablet by mouth daily. Amoxicillin-clavulanate 875-125 MG tablet Take 1 tablet by mouth every 12 hours for 10 days. apixaban 2.5 MG tablet 2.5 mg 2 tabs, BID- Lot # [id number] Exp - 10.23 buPROPion (Wellbutrin XL) 300 MG tablet XL Take 1 tablet by mouth every morning before breakfast. carveDILOL (Coreg) 12.5 MG tablet Take 1 tablet by mouth 2 times daily with meals. Given by Dr. Calderon Cetirizine 10 MG tablet Take 1 tablet by mouth daily as needed for Allergies. OTC Clindamycin Phos-Benzoyl Perox 1.2-3.75 % Gel Apply 1 Application topically daily. Given by Dermatology Dr. Dejesus Clopidogrel 75 MG tablet Take 1 tablet by mouth daily. cyanocobalamin 1000 MCG tablet Take 1 tablet by mouth daily. Chew 1 tab q daily Evolocumab (Repatha SureClick) 140 MG/ML Solution Auto-injector injection Inject 1 mL under the skin every 14 days. (Patient taking differently: Inject 1 mL under the skin every 14 days. Last dose 06/17/2023) fenofibrate 160 MG tablet Take 1 tablet by mouth daily. Folic acid 1 MG tablet Take 1 tablet by mouth daily. Lisinopril 5 MG tablet Take 1 tablet by mouth daily. Cancel previous refills magnesium oxide 400 (240 Mg) MG Take 1 tablet by mouth daily. OTC Mupirocin 2 % ointment Apply topical TID for 7 days Pantoprazole (Protonix) [address] tablet DR Take 1 tablet by mouth 2 times daily (take before meals). traZODone 100 MG tablet Take 1 tablet by mouth at bedtime. triamterene-hydrochlorothiazide (Dyazide) 37.5-25 MG per capsule Take 1 capsule by mouth daily. Cancel previous refills hydroCODone-acetaminophen 5-325 MG tablet Take 1 tablet by mouth every 4 hours as needed for Moderate Pain for up to 3 days. Past Medical History: Diagnosis Date A-fib Anemia low Fe Arrhythmia Arthritis ASCUS of cervix with negative high risk HPV Asthma not asthma B12 deficiency Carotid stenosis, bilateral-Right 30%, and left 60% Central retinal artery occlusion of left eye CKD (chronic kidney disease) stage 3, GFR 30-59 ml/min-3a patient denies CLL (chronic lymphocytic leukemia) 2011 [id number] on 09-30-2020 Depression Diffuse non-Hodgkin's lymphoma chemotherapy Folate deficiency GERD (gastroesophageal reflux disease) Gout pt denies Hiatal hernia pt denies Hyperglycemia Hyperlipidemia LDL goal <70 Hypertension Hyponatremia Liver disease fatty liver Non-Hodgkin lymphoma 2011 in remission PERCY (obstructive sleep apnea) PVC's (premature ventricular contractions) 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 (blindness) Past Surgical History: Procedure Laterality Date I&D BURSA FOOT Left 07/08/2023 Laterality: Left; Surgeon: Dawn Uriarte DPM; Location: [facility] OR INJECTION NERVE OTHER PERIPHERAL Left 12/16/2022 Laterality: Left; Surgeon: Isreal Sigala MD; Location: [facility] OR GUIDANCE FLUOROSCOPIC NEEDLE OR CATHETER PLACEMENT FOR SPINE INJECTION ADD-ON PX Left 12/16/2022 Laterality: Left; Surgeon: Isreal Sigala MD; Location: [facility] OR SUSPENSION URETHRA/URETHROVESICAL FEMALE OPEN W/ SYNTHETIC MATERIAL (SLING) Midline 08/31/2022 Laterality: Midline; Surgeon: Dariusz Rangel MD; Location: [facility] OR CYSTOURETHROSCOPY W/ DILATION BLADDER Midline 08/31/2022 Laterality: Midline; Surgeon: Dariusz Rangel MD; Location: [facility] OR COLPORRHAPHY ANTEROPOSTERIOR REPAIR CYSTOCELE & RECTOCELE Midline 08/31/2022 Laterality: Midline; Surgeon: Dariusz Rangel MD; Location: [facility] OR ARTHRODESIS SACROILIAC JOINT MINIMALLY INVASIVE W/ TRANSFIXING DEVICE Left 06/17/2022 Laterality: Left; Surgeon: Isreal Sigala MD; Location: [facility] OR GUIDANCE FLUOROSCOPIC NEEDLE OR CATHETER PLACEMENT FOR SPINE INJECTION ADD-ON PX Left 06/17/2022 Laterality: Left; Surgeon: Isreal Sigala MD; Location: [facility] OR EGD W/ DILATION BALLOON N/A 12/01/2021 Laterality: N/A; Surgeon: Indra Parrsih DO; Location: [facility] SHOULDER ARTHROSCOPY Left 06/18/2021 REMOVAL CENTRAL VENOUS ACCESS DEVICE TUNNELED W/ PORT PUMP Left 09/13/2019 Laterality: Left; Surgeon: Eduardo Muñoz MD; Location: [facility] INTERVENTIONAL RADIOLOGY (VIR) EGD W/ DILATION BALLOON N/A 06/30/2018 Laterality: N/A; Surgeon: Indra Parrish DO; Location: [facility] EGD DIAGNOSTIC N/A 04/07/2018 Laterality: N/A; Surgeon: Wilner Leigh MD; Location: [facility] COLONOSCOPY DIAGNOSTIC N/A 04/07/2018 Laterality: N/A; Surgeon: Wilner Leigh MD; Location: [facility] KNEE REPLACEMENT Right 05/2015 done at [place]--CC ARTHROPLASTY KNEE TOTAL Right 04/2015 INSERTION PICC W/ PORT PUMP 2015 power port COLONOSCOPY DIAGNOSTIC 2006 SALPINGO-OOPHORECTOMY OPEN N/A 1983 APPENDECTOMY OPEN 1983 TONSILLECTOMY ADENOIDECTOMY 1968 EGD DIAGNOSTIC 10 months ago Social History Occupational History Employer: RETIRED Tobacco Use Smoking status: Former Packs/day: 0.75 Years: 35.00 Additional pack years: 0.00 Total pack years: 26.25 Types: Cigarettes Quit date: 04/23/2013 Years since quittin.2 Smokeless tobacco: Never Vaping Use Vaping Use: Never used Substance and Sexual Activity Alcohol use: Yes Alcohol/week: 2.0 standard drinks of alcohol Types: 2 Cans of beer per week Drug use: Never Sexual activity: Not Currently control/protection: Menopause ROS: Review of Systems Nurse Note: Review of Systems Constitutional: Negative for chills and fever. Respiratory: Negative for shortness of breath. Cardiovascular: Negative for chest pain and leg swelling. Endocrine: Negative for cold intolerance and heat intolerance. Musculoskeletal: Negative for gait problem and joint swelling. Neurological: Negative for numbness. Psychiatric/Behavioral: The patient is not nervous/anxious. Nursing Assessment: Physical Exam Objective: Vitals: 07/21/23 1309 BP: 150/80 Objective: Vascular: Dorsalis pedis and posterior tibial pulses are readilly palpable and graded at 2/4 bilateral. Dermatological: Left 4th toe with swelling and mild erythema. The plantar incision is healed. MRI FOOT LEFT WITHOUT CONTRAST Result Date: 05/10/2023 EXAM: MRI FOOT LEFT WITHOUT CONTRAST HISTORY: For stress swelling and abscess. Rule out osteomyelitis COMPARISON: None. TECHNIQUE: Multiplanar MRI of left foot was performed without contrast in sagittal, coronal and axial planes using T1, T2 and STIR pulsing sequences FINDINGS: Bony structures of left foot including visualized tarsal bones, metatarsals and phalanges demonstrate no evidence of fracture or contusion. No dislocation is seen. Small joint effusion is seen in the first metatarsophalangeal joint. Subtle marrow edema is suspected involving the fourth distal phalanx without bony destructive changes or abnormal T1 signal. No cortical disruption is seen to suggest osteomyelitis. The flexor and extensor tendons appear intact. Visualized plantar fascia appears intact. Collateral ligaments appear intact. Lisfranc ligament is visualized and appears intact. Evidence of superficial veindeep soft tissue edema involving fourth toe without focal collections. Muscles demonstrate normal signal. IMPRESSION: Soft tissue edema 4th distal phalanx without T1 abnormality or cortical disruption to suggest osteomyelitis. XR FOOT LEFT 3 VIEWS Result Date: 05/02/2023 EXAM: XR FOOT LEFT 3 VIEWS HISTORY: infection, redness, drainage of left 4th toe. COMPARISON: None available. FINDINGS: 3 views of the left foot were obtained. These were AP, oblique and lateral views weightbearing I do not specifically see any evidence of fracture or dislocation. There are no peria rticular calcifications, erosions or obvious signs of osteomyelitis. No soft tissue air is seen. The fourth digit appears prominently swollen IMPRESSION: 1. Prominent soft tissue swelling of the fourth digit of the left foot. 2. I do not seeany evidence of fracture, dislocation, advanced arthropathy or osteomyelitis. Assessment: Elena was seen today for infection . Diagnoses and all orders for this visit: Cellulitis and abscess of toe of left foot - XR FOOT LEFT 3 VIEWS; Future - CULTURE WOUND; Future acute complicated, limb threatening diagnosis Plan: Patient was seen and evaluated today Message sent to dr. shipley to go ahead and start IV antibiotics Discussed risks and benefits of in office I and D today Informed consent signed See proc note Xray ordered, will consider ordering a new MRI Daily dressing changes At risk of amputation of toe Follow up in 1 week INCISION AND DRAINAGE Date/Time: 07/21/2023 1:50 PM Performed by: Dawn Uriarte DPM Authorized by: Dawn Uriarte DPM Indications: Type: Abscess Location: Body area: Lower extremity Location details: Left fourth toe Anesthesia: Anesthesia: Digital block Local anesthetic: Lidocaine 1% without epinephrine Anesthetic total (ml): 2 Procedure Details: Scalpel size: 15 Incision type: Single straight Incision depth: Subcutaneous Complexity: Simple Drainage: Purulent and bloody Drainage amount: Scant Wound treatment: Wound left open Dressinx4 sterile gauze and Coban Patient tolerance: Patient tolerated the procedure well with no immediate complications Culture taken documented in this [facility] [place]09-25-2023 History of Present illness Narrative* Dragan Candelaria LPN - 07/18/2023 10:10 AM EDT Nurse Note: Review of Systems Constitutional: Negative for chills and fever. Respiratory: Negative for shortness of breath. Cardiovascular: Negative for chest pain and leg swelling. Neurological: Negative for numbness. Nursing Assessment: Physical Exam * Dawn Uriarte DPM - 07/18/2023 10:10 AM EDT Patient Elena Galeano Date: 07/18/2023 Subjective: Elena is s/p I and D left 4th toe on 07/08/23. She is on updated antibiotics per dr. Shipley. She notes she is doing ok. She is on augmentin History that the toe is improving, but something is happening on the underside of the toe. History of the left 4th toe. She notes that she is on her 2nd round of keflex. She has had an xray a few days ago and some purulence drained from the toe a few days ago. A culture is pending. She notes that the toe has been bad for 3-4 months, but she really has had problems on and off for about a month. She does not remember any kind of trauma. Allergies Allergen Reactions Nsaids Has CKD-3a, and Anemia Current Outpatient Medications Medication Sig Albuterol (Ventolin HFA) 108 (90 Base) MCG/ACT Aero Soln inhaler Inhale 2 puffs every 6 hours as needed for Wheezing. Allopurinol 100 MG tablet Take 1 tablet by mouth daily. Amoxicillin-clavulanate 875-125 MG tablet Take 1 tablet by mouth every 12 hours for 10 days. apixaban 2.5 MG tablet 2.5 mg 2 tabs, BID- Lot # [id number] 08.15 buPROPion (Wellbutrin XL) 300 MG tablet XL Take 1 tablet by mouth every morning before breakfast. carveDILOL (Coreg) 12.5 MG tablet Take 1 tablet by mouth 2 times daily with meals. Given by Dr. Calderon Cetirizine 10 MG tablet Take 1 tablet by mouth daily as needed for Allergies. OTC Clindamycin Phos-Benzoyl Perox 1.2-3.75 % Gel Apply 1 Application topically daily. Given by Dermatology Dr. Dejesus Clopidogrel 75 MG tablet Take 1 tablet by mouth daily. cyanocobalamin 1000 MCG tablet Take 1 tablet by mouth daily. Chew 1 tab q daily Evolocumab (Repatha SureClick) 140 MG/ML Solution Auto-injector injection Inject 1 mL under the skin every 14 days. (Patient taking differently: Inject 1 mL under the skin every 14 days. Last dose 06/17/2023) fenofibrate 160 MG tablet Take 1 tablet by mouth daily. Folic acid 1 MG tablet Take 1 tablet by mouth daily. hydroCODone-acetaminophen 5-325 MG tablet Take 1 tablet by mouth every 4 hours as needed for Moderate Pain for up to 3 days. Lisinopril 5 MG tablet Take 1 tablet by mouth daily. Cancel previous refills magnesium oxide 400 (240 Mg) MG Take 1 tablet by mouth daily. OTC Mupirocin 2 % ointment Apply topical TID for 7 days Pantoprazole (Protonix) [address] tablet DR Take 1 tablet by mouth 2 times daily (take before meals). traZODone 100 MG tablet Take 1 tablet by mouth at bedtime. triamterene-hydrochlorothiazide (Dyazide) 37.5-25 MG per capsule Take 1 capsule by mouth daily. Cancel previous refills Past Medical History: Diagnosis Date A-fib Anemia low Fe Arrhythmia Arthritis ASCUS of cervix with negative high risk HPV Asthma not asthma B12 deficiency Carotid stenosis, bilateral-Right 30%, and left 60% Central retinal artery occlusion of left eye CKD (chronic kidney disease) stage 3, GFR 30-59 ml/min-3a patient denies CLL (chronic lymphocytic leukemia) 2011 [id number] on 09-30-2020 Depression Diffuse non-Hodgkin's lymphoma chemotherapy Folate deficiency GERD (gastroesophageal reflux disease) Gout pt denies Hiatal hernia pt denies Hyperglycemia Hyperlipidemia LDL goal <70 Hypertension Hyponatremia Liver disease fatty liver Non-Hodgkin lymphoma 2011 in remission PERCY (obstructive sleep apnea) PVC's (premature ventricular contractions) 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 (blindness) Past Surgical History: Procedure Laterality Date I&D BURSA FOOT Left 07/08/2023 Laterality: Left; Surgeon: Dawn Uriarte DPM; Location: [facility] OR INJECTION NERVE OTHER PERIPHERAL Left 12/16/2022 Laterality: Left; Surgeon: Isreal Sigala MD; Location: [facility] OR GUIDANCE FLUOROSCOPIC NEEDLE OR CATHETER PLACEMENT FOR SPINE INJECTION ADD-ON PX Left 12/16/2022 Laterality: Left; Surgeon: Isreal Sigala MD; Location: [facility] OR SUSPENSION URETHRA/URETHROVESICAL FEMALE OPEN W/ SYNTHETIC MATERIAL (SLING) Midline 08/31/2022 Laterality: Midline; Surgeon: Dariusz Rangel MD; Location: [facility] OR CYSTOURETHROSCOPY W/ DILATION BLADDER Midline 08/31/2022 Laterality: Midline; Surgeon: Dariusz Rangel MD; Location: [facility] OR COLPORRHAPHY ANTEROPOSTERIOR REPAIR CYSTOCELE & RECTOCELE Midline 08/31/2022 Laterality: Midline; Surgeon: Dariusz Rangel MD; Location: [facility] OR ARTHRODESIS SACROILIAC JOINT MINIMALLY INVASIVE W/ TRANSFIXING DEVICE Left 06/17/2022 Laterality: Left; Surgeon: Isreal Sigala MD; Location: [facility] OR GUIDANCE FLUOROSCOPIC NEEDLE OR CATHETER PLACEMENT FOR SPINE INJECTION ADD-ON PX Left 06/17/2022 Laterality: Left; Surgeon: Isreal Sigala MD; Location: [facility] OR EGD W/ DILATION BALLOON N/A 12/01/2021 Laterality: N/A; Surgeon: Indra Parrish DO; Location: [facility]OSCOPY SHOULDER ARTHROSCOPY Left 06/18/2021 REMOVAL CENTRAL VENOUS ACCESS DEVICE TUNNELED W/ PORT PUMP Left 09/13/2019 Laterality: Left; Surgeon: Eduardo Muñoz MD; Location: [facility] INTERVENTIONAL RADIOLOGY (VIR) EGD W/ DILATION BALLOON N/A 06/30/2018 Laterality: N/A; Surgeon: Indra Parrish DO; Location: [facility] EGD DIAGNOSTIC N/A 04/07/2018 Laterality: N/A; Surgeon: Wilner Leigh MD; Location: [facility] COLONOSCOPY DIAGNOSTIC N/A 04/07/2018 Laterality: N/A; Surgeon: Wilner Leigh MD; Location: [facility] KNEE REPLACEMENT Right 05/2015 done at [place]--CC ARTHROPLASTY KNEE TOTAL Right 04/2015 INSERTION PICC W/ PORT PUMP 2014 power port COLONOSCOPY DIAGNOSTIC 2007 SALPINGO-OOPHORECTOMY OPEN N/A 1983 APPENDECTOMY OPEN 1983 TONSILLECTOMY ADENOIDECTOMY 1968 EGD DIAGNOSTIC 10 months ago Social History Occupational History Employer: RETIRED Tobacco Use Smoking status: Former Packs/day: 0.75 Years: 35.00 Additional pack years: 0.00 Total pack years: 26.25 Types: Cigarettes Quit date: 04/23/2013 Years since quittin.2 Smokeless tobacco: Never Vaping Use Vaping Use: Never used Substance and Sexual Activity Alcohol use: Yes Alcohol/week: 2.0 standard drinks of alcohol Types: 2 Cans of beer per week Drug use: Never Sexual activity: Not Currently control/protection: Menopause ROS: Review of Systems Nurse Note: Review of Systems Constitutional: Negative for chills and fever. Respiratory: Negative for shortness of breath. Cardiovascular: Negative for chest pain and leg swelling. Neurological: Negative for numbness. Nursing Assessment: Physical Exam Objective: Vitals: 07/18/23 0949 BP: 140/90 Objective: Vascular: Dorsalis pedis and posterior tibial pulses are readilly palpable and graded at 2/4 bilateral. Dermatological: Left 4th toe with intact sutures- plantar incision Incision coapted Mild erythema to the left 4th toe and mild swelling, peeling skin, There is a small dorsal ulceration that has serous drainage coming out of it. MRI FOOT LEFT WITHOUT CONTRAST Result Date: 05/10/2023 EXAM: MRI FOOT LEFT WITHOUT CONTRAST HISTORY: For stress swelling and abscess. Rule out osteomyelitis COMPARISON: None. TECHNIQUE: Multiplanar MRI of left foot was performed without contrast in sagittal, coronal and axial planes using T1, T2 and STIR pulsing sequences FINDINGS: Bony structures of left foot including visualized tarsal bones, metatarsals and phalanges demonstrate no evidence of fracture or contusion. No dislocation is seen. Small joint effusion is seen in the first metatarsophalangeal joint. Subtle marrow edema is suspected involving the fourth distal phalanx without bony destructive changes or abnormal T1 signal. No cortical disruption is seen to suggest osteomyelitis. The flexor and extensor tendons appear intact. Visualized plantar fascia appears intact. Collateral ligaments appear intact. Lisfranc ligament is visualized and appears intact. Evidence of superficial veindeep soft tissue edema involving fourth toe without focal collections. Muscles demonstrate normal signal. IMPRESSION: Soft tissue edema 4th distal phalanx without T1 abnormality or cortical disruption to suggest osteomyelitis. XR FOOT LEFT 3 VIEWS Result Date: 05/02/2023 EXAM: XR FOOT LEFT 3 VIEWS HISTORY: infection, redness, drainage of left 4th toe. COMPARISON: None available. FINDINGS: 3 views of the left foot were obtained. These were AP, oblique and lateral views weightbearing I do not specifically see any evidence of fracture or dislocation. There are no peria rticular calcifications, erosions or obvious signs of osteomyelitis. No soft tissue air is seen. The fourth digit appears prominently swollen IMPRESSION: 1. Prominent soft tissue swelling of the fourth digit of the left foot. 2. I do not seeany evidence of fracture, dislocation, advanced arthropathy or osteomyelitis. Assessment: Diagnoses and all orders for this visit: Cellulitis and abscess of toe of left foot acute complicated, limb threatening diagnosis Plan: Patient was seen and evaluated today Micro reviewed with patient Dr. shipley notes reviewed I recommend IV antibiotics If no improvement in 3 weeks consider repeat xray and MRI Goal is to save the toe. Sutures removed today Will keep band aid and antibiotic ointment on toe At risk for amputation of toe Follow up in 3 weeks documented in this [facility] [place]09-25-2023 History of Present illness Narrative* Jenise Hodges - 07/18/2023 8:45 AM EDT Review of Systems A complete review of systems are negative except those consistent with HPI No fevers, chills or sweats No cough, chest pain No dysphagia, odynophagia No abdominal pain, nausea, vomiting, diarrhea No dysuria, frequency, hematuria No headache, dizziness, focal neurologic complaints No ear pain No sinus pain No rash No weight loss No joint or muscular pain Recent travel history? No * Monse Shipley MD - 07/18/2023 8:45 AM EDT HPI Elena Galeano 63 y.o. female presents today for Toe Pain (4th toe on left foot from great toe. Dr. Uriarte debrided abscess on Sunday 07/15. No ATBs prescribed from him. ) Patient states ID consult appointment in June of 2023 that she is longstanding history of for several months of a left toe infection. She denies any specific trauma or inciting event that started this all. Past medical history includes stroke, AFib, left eye blindness, CLL and diffuse non-Hodgkin's lymphoma history status post chemotherapy s/p 10 yrs ago, GERD, hyperlipidemia, hypertension, DMII per record, fatty liver disease, obstructive sleep apnea, obesity, anemia, history of COVID. 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 Blackwood. History of former tobacco use, not current. No significant alcohol use, occasional. No illicit abx. No animal bites/scratches, no trauma noted, no barefoot outdoor walking. No hx of gout Patient was seen by Podiatry 05/05/2023 due to ingrown toenail of the 4th left toe ongoing issues for about 3 months at that time per notes with 2 courses of Keflex given at that time. Podiatry diagnosed with a patient with concerns for abscess and cellulitis of the distal 4th toe on 05/05 and MRI was ordered but was negative on 05/10 for deeper infection at that time. Patient was treated with local mupirocin and antibiotic oral course of cefixime. Patient was then treated in the May timeframe with a course of Levaquin per Podiatry and then a course of doxycycline for 14 days new x-ray ordered showing soft tissue swelling on 06/14 without clear bony disease. Patient was then seen on 06/28by Podiatry and a repeat MRI was order due to concern for osteomyelitis of the [facility]th [facility] from 06/29. Hx significant for recurrent purulence reported and patient was referred at this visit to Infectious Disease for IV antibiotics as well as plans forsurgical debridement with an incision and drainage pending for 07/08 with consideration of hyperbaric treatment as well noted No known allergies to antibiotics noted ID consult visit 07/04/2023 Patient denies any fevers or chills. Does note some sweats. No systemic symptoms otherwise. Denies any significant left toe pain. She states that there is a pocket in her plantar area that she believes is collecting fluid and then she has intermittent drainage from this area. ID clinic follow up 07/13, she is status post surgery by Podiatry on 07/08 for incision and drainageof left 4th toe with abscess and cellulitis reported. There was no gross purulence for operative report and cultures were taken. Patient here for follow up of culture data. The culture data was obtained yesterday and plans for adjustment of antibiotics today. Patient denies any fevers chills or sweats. Culture shows Staphylococcus epidermidis rare which is likely a contaminant, resistant to clindamycin and penicillin but otherwise sensitive. Patient also grew Finegoldia. AFB and fungal stains/cultures are pending. Patient's foot is currently dressed, no significant pain noted. No other complai nts reported F/up 07/18, on augmentin. Tolerating well. Some left 4th toe pain, sutures in place. F/up podiatry today. No f/c/s. No other symptoms on ROS. Patient was started on Augmentin 07/13 but not note any significant improvement in pain or discomfort. Some blood on drainage but no other discharge and no purulence noted. No tracking cellulitis. ROS Review of Systems A complete review of systems are negative except those consistent with HPI No fevers, chills or sweats No cough, chest pain No dysphagia, odynophagia No abdominal pain, nausea, vomiting, diarrhea No dysuria, frequency, hematuria No headache, dizziness, focal neurologic complaints No ear pain No sinus pain No rash No weight loss No joint or muscular pain Recent travel history? No HISTORY/ALLERGIES/MEDS Allergies Allergen Reactions Nsaids Has CKD-3a, and Anemia Past Medical History: Diagnosis Date A-fib Anemia low Fe Arrhythmia Arthritis ASCUS of cervix with negative high risk HPV Asthma not asthma B12 deficiency Carotid stenosis, bilateral-Right 30%, and left 60% Central retinal artery occlusion of left eye CKD (chronic kidney disease) stage 3, GFR 30-59 ml/min-3a patient denies CLL (chronic lymphocytic leukemia) 2011 [id number] on 09-30-2020 Depression Diffuse non-Hodgkin's lymphoma chemotherapy Folate deficiency GERD (gastroesophageal reflux disease) Gout pt denies Hiatal hernia pt denies Hyperglycemia Hyperlipidemia LDL goal <70 Hypertension Hyponatremia Liver disease fatty liver Non-Hodgkin lymphoma 2011 in remission PERCY (obstructive sleep apnea) PVC's (premature ventricular contractions) 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 (blindness) Past Surgical History: Procedure Laterality Date I&D BURSA FOOT Left 07/08/2023 Laterality: Left; Surgeon: Dawn Uriarte DPM; Location: [facility] OR INJECTION NERVE OTHER PERIPHERAL Left 12/16/2022 Laterality: Left; Surgeon: Isreal Sigala MD; Location: [facility] OR GUIDANCE FLUOROSCOPIC NEEDLE OR CATHETER PLACEMENT FOR SPINE INJECTION ADD-ON PX Left 12/16/2022 Laterality: Left; Surgeon: Isreal Sigala MD; Location: [facility] OR SUSPENSION URETHRA/URETHROVESICAL FEMALE OPEN W/ SYNTHETIC MATERIAL (SLING) Midline 08/31/2022 Laterality: Midline; Surgeon: Dariusz Rangel MD; Location: [facility] OR CYSTOURETHROSCOPY W/ DILATION BLADDER Midline 08/31/2022 Laterality: Midline; Surgeon: Dariusz Rangel MD; Location: [facility] OR COLPORRHAPHY ANTEROPOSTERIOR REPAIR CYSTOCELE & RECTOCELE Midline 08/31/2022 Laterality: Midline; Surgeon: Dariusz Rangel MD; Location: [facility] OR ARTHRODESIS SACROILIAC JOINT MINIMALLY INVASIVE W/ TRANSFIXING DEVICE Left 06/17/2022 Laterality: Left; Surgeon: Isreal Sigala MD; Location: [facility] OR GUIDANCE FLUOROSCOPIC NEEDLE OR CATHETER PLACEMENT FOR SPINE INJECTION ADD-ON PX Left 06/17/2022 Laterality: Left; Surgeon: Isreal Sigala MD; Location: [facility] OR EGD W/ DILATION BALLOON N/A 12/01/2021 Laterality: N/A; Surgeon: Indra Parrish DO; Location: [facility] SHOULDER ARTHROSCOPY Left 06/18/2021 REMOVAL CENTRAL VENOUS ACCESS DEVICE TUNNELED W/ PORT PUMP Left 09/13/2019 Laterality: Left; Surgeon: Eduardo Muñoz MD; Location: [facility] INTERVENTIONAL RADIOLOGY (VIR) EGD W/ DILATION BALLOON N/A 06/30/2018 Laterality: N/A; Surgeon: Indra Parrish DO; Location: [facility] EGD DIAGNOSTIC N/A 04/07/2018 Laterality: N/A; Surgeon: Wilner Leigh MD; Location: [facility] COLONOSCOPY DIAGNOSTIC N/A 04/07/2018 Laterality: N/A; Surgeon: Wilner Leigh MD; Location: [facility] KNEE REPLACEMENT Right 05/2015 done at [place]--CC ARTHROPLASTY KNEE TOTAL Right 04/2015 INSERTION PICC W/ PORT PUMP 2014 power port COLONOSCOPY DIAGNOSTIC 2007 SALPINGO-OOPHORECTOMY OPEN N/A 1984 APPENDECTOMY OPEN 1983 TONSILLECTOMY ADENOIDECTOMY 1968 EGD DIAGNOSTIC 10 months ago Social History Socioeconomic History Marital status: Spouse name: Not on file Number of children: Not on file Years of education: Not on file Highest education level: Not on file Occupational History Employer: RETIRED Tobacco Use Smoking status: Former Packs/day: 0.75 Years: 35.00 Additional pack years: 0.00 Total pack years: 26.25 Types: Cigarettes Quit date: 04/23/2013 Years since quittin.2 Smokeless tobacco: Never Vaping Use Vaping Use: Never used Substance and Sexual Activity Alcohol use: Yes Alcohol/week: 2.0 standard drinks of alcohol Types: 2 Cans of beer per week Drug use: Never Sexual activity: Not Currently control/protection: Menopause Other Topics Concern Service Not Asked Blood Transfusions Not Asked Caffeine Concern Not Asked Occupational Exposure Not Asked Hobby Hazards Not Asked Sleep Concern Not Asked Stress Concern Not Asked Weight Concern Not Asked Special Diet Not Asked Back Care Not Asked Exercise Not Asked Bike Helmet Not Asked Seat Belt Not Asked Domestic Violence No Social History Narrative Not on file Social Determinants of Health Financial Resource Strain: Not on file Food Insecurity: Not on file Transportation Needs: Not on file Physical Activity: Not on file Stress: Not on file Social Connections: Not on file Intimate Partner Violence: Not on file Housing Stability: Not on file Family History Problem Relation Age of Onset Hypertension Mother Lipid Disorder Mother Depression Mother Clotting Disorder Mother hx of DVT Dementia Father Arrhythmia Father A-Fib Anesth Problems Sister post-op n/v Breast Cancer Maternal Aunt Cancer- Other Maternal Uncle melanoma Ovarian Cancer Paternal Aunt Cancer Paternal Aunt brain Lung Cancer Maternal Grandfather Hypertension Son Lipid Disorder Daughter No known problems Daughter Autism Grandson Current Outpatient Medications: Albuterol (Ventolin HFA) 108 (90 Base) MCG/ACT Aero Soln inhaler, Inhale 2 puffs every 6 hours as needed for Wheezing., Disp: 18 g, Rfl: 0 Allopurinol 100 MG tablet, Take 1 tablet by mouth daily., Disp: 90 tablet, Rfl: 3 Amoxicillin-clavulanate 875-125 MG tablet, Take 1 tablet by mouth every 12 hours for 10 days., Disp: 20 tablet, Rfl: 0 apixaban 2.5 MG tablet, 2.5 mg 2 tabs, BID- Lot # [id number] 08.15, Disp: 56 tablet, Rfl: 0 buPROPion (Wellbutrin XL) 300 MG tablet XL, Take 1 tablet by mouth every morning before breakfast.,Disp: 90 tablet, Rfl: 0 carveDILOL (Coreg) 12.5 MG tablet, Take 1 tablet by mouth 2 times daily with meals. Given by Dr. Calderon, Disp: , Rfl: Cetirizine 10 MG tablet, Take 1 tablet by mouth daily as needed for Allergies. OTC, Disp: , Rfl: Clindamycin Phos-Benzoyl Perox 1.2-3.75 % Gel, Apply 1 Application topically daily. Given by Dermatology Dr. Dejesus, Disp: , Rfl: Clopidogrel 75 MG tablet, Take 1 tablet by mouth daily., Disp: 90 tablet, Rfl: 3 cyanocobalamin 1000 MCG tablet, Take 1 tablet by mouth daily. Chew 1 tab q daily, Disp: 90 tablet, Rfl: 0 Evolocumab (Repatha SureClick) 140 MG/ML Solution Auto-injector injection, Inject 1 mL under the skin every 14 days. (Patient taking differently: Inject 1 mL under the skin every 14 days. Last dose 06/17/2023), Disp: 2 mL, Rfl: 11 fenofibrate 160 MG tablet, Take 1 tablet by mouth daily., Disp: 90 tablet, Rfl: 3 Folic acid 1 MG tablet, Take 1 tablet by mouth daily., Disp: 90 tablet, Rfl: 0 Lisinopril 5 MG tablet, Take 1 tablet by mouth daily. Cancel previous refills, Disp: 90 tablet, Rfl: 0 magnesium oxide 400 (240 Mg) MG, Take 1 tablet by mouth daily. OTC, Disp: , Rfl: Mupirocin 2 % ointment, Apply topical TID for 7 days, Disp: 30 g, Rfl: 0 Pantoprazole (Protonix) [address] tablet DR, Take 1 tablet by mouth 2 times daily (take before meals)., Disp: 180 tablet, Rfl: 0 traZODone 100 MG tablet, Take 1 tablet by mouth at bedtime., Disp: 90 tablet, Rfl: 0 triamterene-hydrochlorothiazide (Dyazide) 37.5-25 MG per capsule, Take 1 capsule by mouth daily. Cancel previous refills, Disp: 90 capsule, Rfl: 3 hydroCODone-acetaminophen 5-325 MG tablet, Take 1 tablet by mouth every 4 hours as needed for Moderate Pain for up to 3 days., Disp: 18 tablet, Rfl: 0 EXAM BP 128/72 (BP Location: Right arm, BP Position: Sitting) Pulse 82 Temp 96.8 F (36 C) (Temporal) Resp 18 Ht 1.651 m (5' 5) Wt 94.8 kg (209 lb) SpO2 97% BMI 34.78 kg/m Smoking Status Former Physical Exam Vitals and nursing note reviewed. Constitutional: General: She is not in acute distress. Appearance: Normal appearance. HENT: Head: Normocephalic and atraumatic. Mouth/Throat: Pharynx: Oropharynx is clear. No oropharyngeal exudate. Eyes: Extraocular Movements: Extraocular movements intact. Conjunctiva/sclera: Conjunctivae normal. Pupils: Pupils are equal, round, and reactive to light. Cardiovascular: Rate and Rhythm: Normal rate and regular rhythm. Pulses: Normal pulses. Heart sounds: Normal heart sounds. No murmur heard. Pulmonary: Effort: Pulmonary effort is normal. No respiratory distress. Breath sounds: Normal breath sounds. No rhonchi or rales. Abdominal: General: Bowel sounds are normal. There is no distension. Palpations: Abdomen is soft. Tenderness: There is no abdominal tenderness. There is no guarding. Genitourinary: Comments: No CVA or suprapubic tenderness Musculoskeletal: General: No swelling or tenderness. Normal range of motion. Cervical back: Normal range of motion and neck supple. No rigidity. Comments: Left 4th toe s/p surgery, sutures in place, wound noted. No significant drainage. Does have tenderness and some erythema particularly lateral on examination Skin: General: Skin is warm and dry. Findings: No rash. Neurological: General: No focal deficit present. Mental Status: She is alert. Psychiatric: Mood and Affect: Mood normal. Behavior: Behavior normal. Thought Content: Thought content normal. LABS CBC Lab Results Component Value Date WBC 6.6 06/29/2023 HGB 13.2 06/29/2023 HCT 39.1 06/29/2023 PLATELET 218 06/29/2023 MCV 97.4 06/29/2023 EDIF Lab Results Component Value Date RBCDISTRIBU 14.0 06/29/2023 GRNLOCYT 43.5 09/29/2022 LYMPHOCYT 45.1 09/29/2022 MONOCYTELEC 9.2 09/29/2022 EOSINOPHILS 1.2 04/21/2023 EOSINOPHILS 0.1 04/21/2023 BASOPHILS 0.6 04/21/2023 BASOPHILS 0.0 04/21/2023 GRNLOCTYABS 3.0 11/03/2016 LYMPHOCYTABS 1.8 04/21/2023 MONOSABSOLU 0.5 11/03/2016 EOSINOPHLABS 0.09 09/29/2022 BASOPHILSABS 0.1 11/03/2016 PLATELET 218 06/29/2023 MPV 8.5 06/29/2023 EDIF Lab Results Component Value Date RBCDISTRIBU 14.0 06/29/2023 GRNLOCYT 43.5 09/29/2022 LYMPHOCYT 45.1 09/29/2022 MONOCYTELEC 9.2 09/29/2022 EOSINOPHILS 1.2 04/21/2023 EOSINOPHILS 0.1 04/21/2023 BASOPHILS 0.6 04/21/2023 BASOPHILS 0.0 04/21/2023 GRNLOCTYABS 3.0 11/03/2016 LYMPHOCYTABS 1.8 04/21/2023 MONOSABSOLU 0.5 11/03/2016 EOSINOPHLABS 0.09 09/29/2022 BASOPHILSABS 0.1 11/03/2016 PLATELET 218 06/29/2023 MPV 8.5 06/29/2023 ESR Lab Results Component Value Date RBCDISTRIBU 14.0 06/29/2023 GRNLOCYT 43.5 09/29/2022 LYMPHOCYT 45.1 09/29/2022 MONOCYTELEC 9.2 09/29/2022 EOSINOPHILS 1.2 04/21/2023 EOSINOPHILS 0.1 04/21/2023 BASOPHILS 0.6 04/21/2023 BASOPHILS 0.0 04/21/2023 GRNLOCTYABS 3.0 11/03/2016 LYMPHOCYTABS 1.8 04/21/2023 MONOSABSOLU 0.5 11/03/2016 EOSINOPHLABS 0.09 09/29/2022 BASOPHILSABS 0.1 11/03/2016 PLATELET 218 06/29/2023 MPV 8.5 06/29/2023 Lab Results Component Value Date SODIUM 133 (L) 06/29/2023 POTASSIUM 4.3 06/29/2023 CHLORIDE 100 06/29/2023 CO2 25 06/29/2023 BUN 16 06/29/2023 CREATSERUM 0.82 06/29/2023 GLUCOSE 123 (H) 06/29/2023 No results found for: CRP Lab Results Component Value Date RESULTCULT FINEGOLDIA MAGNA 07/08/2023 RESULTCULT STAPHYLOCOCCUS EPIDERMIDIS 07/08/2023 . Lab Results Component Value Date GLUCOSE 123 (H) 06/29/2023 . Lab Results Component Value Date CALCIUM 9.5 06/29/2023 Lab Results Component Value Date ALBUMIN 4.1 06/29/2023 SIUM 06/29/2023 CHLORIDE 06/29/2023 CO2 09 Lab Results Component Value Date BILITOTAL 0.9 06/29/2023 Lab Results Component Value Date BUN 16 06/29/2023 ALKPHOS 51 06/29/2023 BILITOTAL 0.9 06/29/2023 BILIDIRECT 0.1 10/22/2015 No orders to display IMAGING MRI FOOT LEFT WITHOUT CONTRAST Result Date: 06/29/2023 EXAM: MRI FOOT LEFT WITHOUT CONTRAST COMPARISON: Left foot x-rays from 06/14/2023 and left foot MRI from 05/10/2023. HISTORY: Infection in the fourth toe. Evaluate for osteomyelitis. TECHNIQUE: Multiplanar and multisequence imaging of the left foot was performed without contrast. FINDINGS: Motion artifact degrades evaluation on this study. There is mild soft tissue swelling involving the fourth toewith mild subcutaneous edema. Correlation for clinical findings of cellulitis would be helpful. There is no well-defined abscess. There is no MRI evidence of osteomyelitis. There is no low T1 signal or bony destruction in the phalanges of the fourth toe. No fracture or dislocation is evident. Thereis no metatarsal stress fracture. The tarsometatarsal alignment is anatomic. There is mild joint space narrowing and spurring involving the first metatarsophalangeal joint. Flexor and extensor tendons and the midfoot and forefoot appear intact with no focal tendon tear. There is no focal tenosynovitis. No muscle edema is identified. IMPRESSION: 1. There is mild subcutaneous edema and soft tissue swelling of the fourth toe suspicious for cellulitis. 2. No MRI evidence of osteomyelitis. 3. No focal abscess. 4. No acute or healing fracture in the foot. MRI SPINE LUMBAR WITHOUT CONTRAST Result Date: 06/20/2023 TITLE: MRI SPINE LUMBAR WITHOUT CONTRAST COMPARISON: 2021 lumbar spine MRI CLINICAL HISTORY: Low back pain radiating to the sacroiliac joints TECHNIQUE: Sagittal T1, sagittal T2 FSE, sagittal STIR, and axial T2 FSE. FINDINGS: Alignment is normal. There is no listhesis nor vertebral body height loss. The conus medullaris terminates at L1-2 and appears normal. The visualized adjacent soft suggest asmall right renal cyst. Prominent dorsal epidural fat L1-L5.. New metallic hardware traversing the left sacroiliac joint. T12-L1: Normal disc space. No stenosis L1-L2:Mild disc bulge. No significant stenosis. L2-3: Diffuse disc bulge. Left foraminal extension. Bilateral facet hypertrophy. Mild central canal and moderate left-sided foraminal narrowing L3-4: Mild disc bulge. Mild tear in left lateral annulus. Bilateral facet hypertrophy. Mild to moderate central canal and left-sided foraminal narrowing L4-5: Disc space narrowing lateral disc and osteophyte formation. Central disc protrusion. Facet hypertrophy and prominent dorsal epidural fat. This results in moderate to severe central canal and moderate foraminal narrowing L5-S1: Mild disc bulge. Bilateral facet hypertrophy. There is no significant central canal and [id number] left-sided foraminal narrowing IMPRESSION: MODERATE MULTILEVEL DEGENERATIVE CHANGES OF THE LUMBAR SPINE PROMINENT DORSAL EPIDURAL FAT L1-L5 L2-3: DIFFUSE DISC BULGE WITH LEFT FORAMINAL DISC PROTRUSION SMALL ANNULAR TEAR L3-4 MODERATE TO SEVERE MULTIFACTORIAL CENTRAL STENOSIS L4-5 FACET HYPERTROPHY LOWER 2 LUMBAR LEVELS XR FOOT LEFT 3 VIEWS Result Date: 06/14/2023 EXAM: XR FOOT LEFT 3 VIEWS HISTORY: left 4th toe infection COMPARISON: 05/02/2023. FINDINGS: 3 weightbearing views were submitted. Again the fourth toe appears swollen. Fracture, opaque foreign body or bony erosion not identified. Spurs present plantar and posterior calcaneus. IMPRESSION: 1. Again there is soft tissue swelling fourth toe, osseous abnormality not identified. 2. Calcaneal spurs. XR SPINE LUMBAR W BENDING Result Date: 06/07/2023 EXAM: XR SPINE LUMBAR W BENDING HISTORY: Spondylosis of lumbar region without myelopathy or radiculopathy COMPARISON: None. TECHNIQUE: 5 views with flexion and extension Findings/impression: Satisfactory alignment. Maintained vertebral body heights. Multilevel disc disease and facet arthropathy of L3-S1. Intact hardware. No acute fracture or subluxation. Left-sided sacroiliac fixation. Intact hardware. Diagnosis/Plan: There are no diagnoses linked to this encounter. Complex left 4th toe infection -MRI 05/11 and 06/29 does not show clear osteomyelitis but does have soft tissue swelling -culture from 4th toe 05/17 with Staphylococcus epidermidis for thigh overgrowth only likely a contaminant; 05/05 negative; 05/02 with finegoldia -history of MRSA nares 04/21 negative -Keflex x 2, cefixime, levaquin and doxycycline course without clearance per history -concern for a deep-seated infection that is not being resolved with short courses of oral therapy -s/p operative procedure 07/08 with S epi and finegoldia. -there is no inciting trauma or events preceding this infection that the patient recalls including no bite injuries, soil, pedicures or other inciting events to suggest unusual organisms but this remains in the differential -Operative 07/08 finding no pus and MRI negative for OM; did debride down to tendon; specimens for bacterial aerobic and anaerobic showed S. Epi and Finegoldia on 07/08 -suspect the staph epi is not a true cause of a deep-seated infection given lack of hardware -we will treat with Augmentin 875 mg twice daily for the fin goal via, 07/13-current -plan at least a three-week treatment course but possibly longer -if the patient does not respond appropriately, we will set up IV antibiotics however with the debridement and oral antibiotics we will try to see if this would clear up with this combination, but low threshold to start IV antibiotics and this was discussed with her and her and all questions answered -Pending fungal and afb cultures 07/08 -follow up in ID clinic on Tuesday as if the patient does not show improvement on the current treatment regimen we will plan on IV ceftriaxone oral Flagyl; midline; weekly labs, duration for approximately 3 weeks -Check crp, esr ordered, discussed with patient getting drawn today DM -patient denies a history of diabetes but this is in her record and states that she is not currently on any management. Previous BMP shows mildly elevated glucose. -Check a1c Healthcare maintenance -history of prior flu shots, would recommend flu shot this fall -history of pneumococcal conjugate and polysaccharide vaccines -history of tetanus vaccine 2017 -recommend keeping up-to-date on all recommended vaccines Left knee degenerative disease -operative management by Orthopedics is on hold pending resolution of toe infection Return to clinic in 1 week 21 Min of care Please note Portions of this note utilized [employer] and [employer] dictation software, please excuse any typographical or grammatical errors. documented in this [facility] [place]09-20-2023 History of Present illness Narrative* Sarah Edmondson MA - 07/13/2023 11:15 AM EDT Review of Systems A complete review of systems are negative except those consistent with HPI No fevers, chills or sweats No cough, chest pain No dysphagia, odynophagia No abdominal pain, nausea, vomiting, diarrhea No dysuria, frequency, hematuria No headache, dizziness, focal neurologic complaints No ear pain No sinus pain No rash No weight loss No joint or muscular pain Recent travel history? No * Monse Shipley MD - 07/13/2023 11:15 AM EDT HPI Elena Galeano 63 y.o. female presents today for Follow-up (1 Week F/U) Patient states ID consult appointment in June of 2023 that she is longstanding history of for several months of a left toe infection. She denies any specific trauma or inciting event that started this all. Past medical history includes stroke, AFib, left eye blindness, CLL and diffuse non-Hodgkin's lymphoma history status post chemotherapy s/p 10 yrs ago, GERD, hyperlipidemia, hypertension, DMII per record, fatty liver disease, obstructive sleep apnea, obesity, anemia, history of COVID. 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 Blackwood. History of former tobacco use, not current. No significant alcohol use, occasional. No illicit abx. No animal bites/scratches, no trauma noted, no barefoot outdoor walking. No hx of gout Patient was seen by Podiatry 05/05/2023 due to ingrown toenail of the 4th left toe ongoing issues for about 3 months at that time per notes with 2 courses of Keflex given at that time. Podiatry diagnosed with a patient with concerns for abscess and cellulitis of the distal 4th toe on 05/05 and MRI was ordered but was negative on 05/10 for deeper infection at that time. Patient was treated with local mupirocin and antibiotic oral course of cefixime. Patient was then treated in the May timeframe with a course of Levaquin per Podiatry and then a course of doxycycline for 14 days new x-ray ordered showing soft tissue swelling on 06/14 without clear bony disease. Patient was then seen on 06/28by Podiatry and a repeat MRI was order due to concern for osteomyelitis of the 4th toe per Podiatryalthough radiology report was negative from 06/29. Hx significant for recurrent purulence reported and patient was referred at this visit to Infectious Disease for IV antibiotics as well as plans forsurgical debridement with an incision and drainage pending for 07/08 with consideration of hyperbaric treatment as well noted No known allergies to antibiotics noted ID consult visit 07/04/2023 Patient denies any fevers or chills. Does note some sweats. No systemic symptoms otherwise. Denies any significant left toe pain. She states that there is a pocket in her plantar area that she believes is collecting fluid and then she has intermittent drainage from this area. ID clinic follow up 07/13, she is status post surgery by Podiatry on 07/08 for incision and drainageof left 4th toe with abscess and cellulitis reported. There was no gross purulence for operative report and cultures were taken. Patient here for follow up of culture data. The culture data was obtained yesterday and plans for adjustment of antibiotics today. Patient denies any fevers chills or sweats. Culture shows Staphylococcus epidermidis rare which is likely a contaminant, resistant to clindamycin and penicillin but otherwise sensitive. Patient also grew Finegoldia. AFB and fungal stains/cultures are pending. Patient's foot is currently dressed, no significant pain noted. No other complai nts reported ROS Review of Systems A complete review of systems are negative except those consistent with HPI No fevers, chills or sweats No cough, chest pain No dysphagia, odynophagia No abdominal pain, nausea, vomiting, diarrhea No dysuria, frequency, hematuria No headache, dizziness, focal neurologic complaints No ear pain No sinus pain No rash No weight loss No joint or muscular pain Recent travel history? No HISTORY/ALLERGIES/MEDS Allergies Allergen Reactions Nsaids Has CKD-3a, and Anemia Past Medical History: Diagnosis Date A-fib Anemia low Fe Arrhythmia Arthritis ASCUS of cervix with negative high risk HPV Asthma not asthma B12 deficiency Carotid stenosis, bilateral-Right 30%, and left 60% Central retinal artery occlusion of left eye CKD (chronic kidney disease) stage 3, GFR 30-59 ml/min-3a patient denies CLL (chronic lymphocytic leukemia) 2011 [id number] on 09-30-2020 Depression Diffuse non-Hodgkin's lymphoma chemotherapy Folate deficiency GERD (gastroesophageal reflux disease) Gout pt denies Hiatal hernia pt denies Hyperglycemia Hyperlipidemia LDL goal <70 Hypertension Hyponatremia Liver disease fatty liver Non-Hodgkin lymphoma 2011 in remission PERCY (obstructive sleep apnea) PVC's (premature ventricular contractions) 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 (blindness) Past Surgical History: Procedure Laterality Date I&D BURSA FOOT Left 07/08/2023 Laterality: Left; Surgeon: Dawn Uriarte DPM; Location: [facility] OR INJECTION NERVE OTHER PERIPHERAL Left 12/16/2022 Laterality: Left; Surgeon: Isreal Sigala MD; Location: [facility] OR GUIDANCE FLUOROSCOPIC NEEDLE OR CATHETER PLACEMENT FOR SPINE INJECTION ADD-ON PX Left 12/16/2022 Laterality: Left; Surgeon: Isreal Sigala MD; Location: [facility] OR SUSPENSION URETHRA/URETHROVESICAL FEMALE OPEN W/ SYNTHETIC MATERIAL (SLING) Midline 08/31/2022 Laterality: Midline; Surgeon: Dariusz Rangel MD; Location: [facility] OR CYSTOURETHROSCOPY W/ DILATION BLADDER Midline 08/31/2022 Laterality: Midline; Surgeon: Dariusz Rangel MD; Location: [facility] OR COLPORRHAPHY ANTEROPOSTERIOR REPAIR CYSTOCELE & RECTOCELE Midline 08/31/2022 Laterality: Midline; Surgeon: Dariusz Rangel MD; Location: [facility] OR ARTHRODESIS SACROILIAC JOINT MINIMALLY INVASIVE W/ TRANSFIXING DEVICE Left 06/17/2022 Laterality: Left; Surgeon: Isreal Sigala MD; Location: [facility] OR GUIDANCE FLUOROSCOPIC NEEDLE OR CATHETER PLACEMENT FOR SPINE INJECTION ADD-ON PX Left 06/17/2022 Laterality: Left; Surgeon: Isreal Sigala MD; Location: [facility] OR EGD W/ DILATION BALLOON N/A 12/01/2021 Laterality: N/A; Surgeon: Indra Parrish DO; Location: [facility]OSCOPY SHOULDER ARTHROSCOPY Left 06/18/2021 REMOVAL CENTRAL VENOUS ACCESS DEVICE TUNNELED W/ PORT PUMP Left 09/13/2019 Laterality: Left; Surgeon: Eduardo Muñoz MD; Location: [facility] INTERVENTIONAL RADIOLOGY (VIR) EGD W/ DILATION BALLOON N/A 06/30/2018 Laterality: N/A; Surgeon: Indra Parrish DO; Location: [facility] EGD DIAGNOSTIC N/A 04/07/2018 Laterality: N/A; Surgeon: Wilner Leigh MD; Location: [facility] COLONOSCOPY DIAGNOSTIC N/A 04/07/2018 Laterality: N/A; Surgeon: Wilner Leigh MD; Location: [facility] KNEE REPLACEMENT Right 05/2015 done at [facility] ARTHROPLASTY KNEE TOTAL Right 04/2015 INSERTION PICC W/ PORT PUMP 2015 power port COLONOSCOPY DIAGNOSTIC 2006 SALPINGO-OOPHORECTOMY OPEN N/A 1983 APPENDECTOMY OPEN 1983 TONSILLECTOMY ADENOIDECTOMY 1968 EGD DIAGNOSTIC 10 months ago Social History Socioeconomic History Marital status: Spouse name: Not on file Number of children: Not on file Years of education: Not on file Highest education level: Not on file Occupational History Employer: RETIRED Tobacco Use Smoking status: Former Packs/day: 0.75 Years: 35.00 Additional pack years: 0.00 Total pack years: 26.25 Types: Cigarettes Quit date: 04/23/2013 Years since quittin.2 Smokeless tobacco: Never Vaping Use Vaping Use: Never used Substance and Sexual Activity Alcohol use: Yes Alcohol/week: 2.0 standard drinks of alcohol Types: 2 Cans of beer per week Drug use: Never Sexual activity: Not Currently control/protection: Menopause Other Topics Concern Service Not Asked Blood Transfusions Not Asked Caffeine Concern Not Asked Occupational Exposure Not Asked Hobby Hazards Not Asked Sleep Concern Not Asked Stress Concern Not Asked Weight Concern Not Asked Special Diet Not Asked Back Care Not Asked Exercise Not Asked Bike Helmet Not Asked Seat Belt Not Asked Domestic Violence No Social History Narrative Not on file Social Determinants of Health Financial Resource Strain: Not on file Food Insecurity: Not on file Transportation Needs: Not on file Physical Activity: Not on file Stress: Not on file Social Connections: Not on file Intimate Partner Violence: Not on file Housing Stability: Not on file Family History Problem Relation Age of Onset Hypertension Mother Lipid Disorder Mother Depression Mother Clotting Disorder Mother hx of DVT Dementia Father Arrhythmia Father A-Fib Anesth Problems Sister post-op n/v Breast Cancer Maternal Aunt Cancer- Other Maternal Uncle melanoma Ovarian Cancer Paternal Aunt Cancer Paternal Aunt brain Lung Cancer Maternal Grandfather Hypertension Son Lipid Disorder Daughter No known problems Daughter Autism Grandson Current Outpatient Medications: Albuterol (Ventolin HFA) 108 (90 Base) MCG/ACT Aero Soln inhaler, Inhale 2 puffs every 6 hours as needed for Wheezing., Disp: 18 g, Rfl: 0 Allopurinol 100 MG tablet, Take 1 tablet by mouth daily., Disp: 90 tablet, Rfl: 3 apixaban 2.5 MG tablet, 2.5 mg 2 tabs, BID- Lot # [id number] 08.15, Disp: 56 tablet, Rfl: 0 buPROPion (Wellbutrin XL) 300 MG tablet XL, Take 1 tablet by mouth every morning before breakfast.,Disp: 90 tablet, Rfl: 0 carveDILOL (Coreg) 12.5 MG tablet, Take 1 tablet by mouth 2 times daily with meals. Given by Dr. Calderon, Disp: , Rfl: Cetirizine 10 MG tablet, Take 1 tablet by mouth daily as needed for Allergies. OTC, Disp: , Rfl: Clindamycin Phos-Benzoyl Perox 1.2-3.75 % Gel, Apply 1 Application topically daily. Given by Dermatology Dr. Dejesus, Disp: , Rfl: Clopidogrel 75 MG tablet, Take 1 tablet by mouth daily., Disp: 90 tablet, Rfl: 3 cyanocobalamin 1000 MCG tablet, Take 1 tablet by mouth daily. Chew 1 tab q daily, Disp: 90 tablet, Rfl: 0 Evolocumab (Repatha SureClick) 140 MG/ML Solution Auto-injector injection, Inject 1 mL under the skin every 14 days. (Patient taking differently: Inject 1 mL under the skin every 14 days. Last dose 06/17/2023), Disp: 2 mL, Rfl: 11 fenofibrate 160 MG tablet, Take 1 tablet by mouth daily., Disp: 90 tablet, Rfl: 3 Folic acid 1 MG tablet, Take 1 tablet by mouth daily., Disp: 90 tablet, Rfl: 0 hydroCODone-acetaminophen 5-325 MG tablet, Take 1 tablet by mouth every 4 hours as needed for Moderate Pain for up to 3 days., Disp: 18 tablet, Rfl: 0 Lisinopril 5 MG tablet, Take 1 tablet by mouth daily. Cancel previous refills, Disp: 90 tablet, Rfl: 0 magnesium oxide 400 (240 Mg) MG, Take 1 tablet by mouth daily. OTC, Disp: , Rfl: Mupirocin 2 % ointment, Apply topical TID for 7 days, Disp: 30 g, Rfl: 0 Pantoprazole (Protonix) [address] tablet DR, Take 1 tablet by mouth 2 times daily (take before meals)., Disp: 180 tablet, Rfl: 0 traZODone 100 MG tablet, Take 1 tablet by mouth at bedtime., Disp: 90 tablet, Rfl: 0 triamterene-hydrochlorothiazide (Dyazide) 37.5-25 MG per capsule, Take 1 capsule by mouth daily. Cancel previous refills, Disp: 90 capsule, Rfl: 3 EXAM BP 126/70 (BP Location: Left arm, BP Position: Sitting) Pulse 64 Temp 97.6 F (36.4 C) (Temporal) Resp 16 Ht 1.651 m (5' 5) Wt 95.3 kg (210 lb 3.2 oz) SpO2 94% BMI 34.98 kg/m Smoking Status Former Physical Exam Vitals and nursing note reviewed. Constitutional: General: She is not in acute distress. Appearance: Normal appearance. HENT: Head: Normocephalic and atraumatic. Mouth/Throat: Pharynx: Oropharynx is clear. No oropharyngeal exudate. Eyes: Extraocular Movements: Extraocular movements intact. Conjunctiva/sclera: Conjunctivae normal. Pupils: Pupils are equal, round, and reactive to light. Cardiovascular: Rate and Rhythm: Normal rate and regular rhythm. Pulses: Normal pulses. Heart sounds: Normal heart sounds. No murmur heard. Pulmonary: Effort: Pulmonary effort is normal. No respiratory distress. Breath sounds: Normal breath sounds. No rhonchi or rales. Abdominal: General: Bowel sounds are normal. There is no distension. Palpations: Abdomen is soft. Tenderness: There is no abdominal tenderness. There is no guarding. Genitourinary: Comments: No CVA or suprapubic tenderness Musculoskeletal: General: No swelling or tenderness. Normal range of motion. Cervical back: Normal range of motion and neck supple. No rigidity. Comments: Left 4th toe s/p surgery, shoe and dressing in place. Skin: General: Skin is warm and dry. Findings: No rash. Neurological: General: No focal deficit present. Mental Status: She is alert. Psychiatric: Mood and Affect: Mood normal. Behavior: Behavior normal. Thought Content: Thought content normal. LABS CBC Lab Results Component Value Date WBC 6.6 06/29/2023 HGB 13.2 06/29/2023 HCT 39.1 06/29/2023 PLATELET 218 06/29/2023 MCV 97.4 06/29/2023 EDIF Lab Results Component Value Date RBCDISTRIBU 14.0 06/29/2023 GRNLOCYT 43.5 09/29/2022 LYMPHOCYT 45.1 09/29/2022 MONOCYTELEC 9.2 09/29/2022 EOSINOPHILS 1.2 04/21/2023 EOSINOPHILS 0.1 04/21/2023 BASOPHILS 0.6 04/21/2023 BASOPHILS 0.0 04/21/2023 GRNLOCTYABS 3.0 11/03/2016 LYMPHOCYTABS 1.8 04/21/2023 MONOSABSOLU 0.5 11/03/2016 EOSINOPHLABS 0.09 09/29/2022 BASOPHILSABS 0.1 11/03/2016 PLATELET 218 06/29/2023 MPV 8.5 06/29/2023 EDIF Lab Results Component Value Date RBCDISTRIBU 14.0 06/29/2023 GRNLOCYT 43.5 09/29/2022 LYMPHOCYT 45.1 09/29/2022 MONOCYTELEC 9.2 09/29/2022 EOSINOPHILS 1.2 04/21/2023 EOSINOPHILS 0.1 04/21/2023 BASOPHILS 0.6 04/21/2023 BASOPHILS 0.0 04/21/2023 GRNLOCTYABS 3.0 11/03/2016 LYMPHOCYTABS 1.8 04/21/2023 MONOSABSOLU 0.5 11/03/2016 EOSINOPHLABS 0.09 09/29/2022 BASOPHILSABS 0.1 11/03/2016 PLATELET 218 06/29/2023 MPV 8.5 06/29/2023 ESR Lab Results Component Value Date RBCDISTRIBU 14.0 06/29/2023 GRNLOCYT 43.5 09/29/2022 LYMPHOCYT 45.1 09/29/2022 MONOCYTELEC 9.2 09/29/2022 EOSINOPHILS 1.2 04/21/2023 EOSINOPHILS 0.1 04/21/2023 BASOPHILS 0.6 04/21/2023 BASOPHILS 0.0 04/21/2023 GRNLOCTYABS 3.0 11/03/2016 LYMPHOCYTABS 1.8 04/21/2023 MONOSABSOLU 0.5 11/03/2016 EOSINOPHLABS 0.09 09/29/2022 BASOPHILSABS 0.1 11/03/2016 PLATELET 218 06/29/2023 MPV 8.5 06/29/2023 Lab Results Component Value Date SODIUM 133 (L) 06/29/2023 POTASSIUM 4.3 06/29/2023 CHLORIDE 100 06/29/2023 CO2 25 06/29/2023 BUN 16 06/29/2023 CREATSERUM 0.82 06/29/2023 GLUCOSE 123 (H) 06/29/2023 No results found for: CRP Lab Results Component Value Date RESULTCULT FINEGOLDIA MAGNA 07/08/2023 RESULTCULT STAPHYLOCOCCUS EPIDERMIDIS 07/08/2023 . Lab Results Component Value Date GLUCOSE 123 (H) 06/29/2023 . Lab Results Component Value Date CALCIUM 9.5 06/29/2023 Lab Results Component Value Date ALBUMIN 4.1 06/29/2023 Lab Results Component Value Date BILITOTAL 0.9 06/29/2023 Lab Results Component Value Date BUN 16 06/29/2023 Lab Results Component Value Date CREATSERUM 0.82 06/29/2023 CREATURINE 22.6 04/21/2023 Lab Results Component Value Date SODIUM 133 (L) 06/29/2023 POTASSIUM 4.3 06/29/2023 CHLORIDE 100 06/29/2023 CO2 25 06/29/2023 Lab Results Component Value Date ALKPHOS 51 06/29/2023 Lab Results Component Value Date HEPATITISB Negative 04/14/2018 Lab Results Component Value Date ALT 36 (H) 06/29/2023 AST 52 (H) 06/29/2023 ALKPHOS 51 06/29/2023 BILITOTAL 0.9 06/29/2023 BILIDIRECT 0.1 10/22/2015 No orders to display IMAGING MRI FOOT LEFT WITHOUT CONTRAST Result Date: 06/29/2023 EXAM: MRI FOOT LEFT WITHOUT CONTRAST COMPARISON: Left foot x-rays from 06/14/2023 and left foot MRI from 05/10/2023. HISTORY: Infection in the fourth toe. Evaluate for osteomyelitis. TECHNIQUE: Multiplanar and multisequence imaging of the left foot was performed without contrast. FINDINGS: Motion artifact degrades evaluation on this study. There is mild soft tissue swelling involving the fourth toewith mild subcutaneous edema. Correlation for clinical findings of cellulitis would be helpful. There is no well-defined abscess. There is no MRI evidence of osteomyelitis. There is no low T1 signal or bony destruction in the phalanges of the fourth toe. No fracture or dislocation is evident. Thereis no metatarsal stress fracture. The tarsometatarsal alignment is anatomic. There is mild joint space narrowing and spurring involving the first metatarsophalangeal joint. Flexor and extensor tendons and the midfoot and forefoot appear intact with no focal tendon tear. There is no focal tenosynovitis. No muscle edema is identified. IMPRESSION: 1. There is mild subcutaneous edema and soft tissue swelling of the fourth toe suspicious for cellulitis. 2. No MRI evidence of osteomyelitis. 3. No focal abscess. 4. No acute or healing fracture in the foot. MRI SPINE LUMBAR WITHOUT CONTRAST Result Date: 06/20/2023 TITLE: MRI SPINE LUMBAR WITHOUT CONTRAST COMPARISON: 2021 lumbar spine MRI CLINICAL HISTORY: Low back pain radiating to the sacroiliac joints TECHNIQUE: Sagittal T1, sagittal T2 FSE, sagittal STIR, and axial T2 FSE. FINDINGS: Alignment is normal. There is no listhesis nor vertebral body height loss. The conus medullaris terminates at L1-2 and appears normal. The visualized adjacent soft suggest asmall right renal cyst. Prominent dorsal epidural fat L1-L5.. New metallic hardware traversing the left sacroiliac joint. T12-L1: Normal disc space. No stenosis L1-L2:Mild disc bulge. No significant stenosis. L2-3: Diffuse disc bulge. Left foraminal extension. Bilateral facet hypertrophy. Mild central canal and moderate left-sided foraminal narrowing L3-4: Mild disc bulge. Mild tear in left lateral annulus. Bilateral facet hypertrophy. Mild to moderate central canal and left-sided foraminal narrowing L4-5: Disc space narrowing lateral disc and osteophyte formation. Central disc protrusion. Facet hypertrophy and prominent dorsal epidural fat. This results in moderate to severe central canal and moderate foraminal narrowing L5-S1: Mild disc bulge. Bilateral facet hypertrophy. There is no significant central canal and [id number] left-sided foraminal narrowing IMPRESSION: MODERATE MULTILEVEL DEGENERATIVE CHANGES OF THE LUMBAR SPINE PROMINENT DORSAL EPIDURAL FAT L1-L5 L2-3: DIFFUSE DISC BULGE WITH LEFT FORAMINAL DISC PROTRUSION SMALL ANNULAR TEAR L3-4 MODERATE TO SEVERE MULTIFACTORIAL CENTRAL STENOSIS L4-5 FACET HYPERTROPHY LOWER 2 LUMBAR LEVELS XR FOOT LEFT 3 VIEWS Result Date: 06/14/2023 EXAM: XR FOOT LEFT 3 VIEWS HISTORY: left 4th toe infection COMPARISON: 05/02/2023. FINDINGS: 3 weightbearing views were submitted. Again the fourth toe appears swollen. Fracture, opaque foreign body or bony erosion not identified. Spurs present plantar and posterior calcaneus. IMPRESSION: 1. Again there is soft tissue swelling fourth toe, osseous abnormality not identified. 2. Calcaneal spurs. XR SPINE LUMBAR W BENDING Result Date: 06/07/2023 EXAM: XR SPINE LUMBAR W BENDING HISTORY: Spondylosis of lumbar region without myelopathy or radiculopathy COMPARISON: None. TECHNIQUE: 5 views with flexion and extension Findings/impression: Satisfactory alignment. Maintained vertebral body heights. Multilevel disc disease and facet arthropathy of L3-S1. Intact hardware. No acute fracture or subluxation. Left-sided sacroiliac fixation. Intact hardware. Diagnosis/Plan: There are no diagnoses linked to this encounter. Complex left 4th toe infection -MRI 05/11 and 06/29 does not show clear osteomyelitis but does have soft tissue swelling -culture from 4th toe 05/17 with Staphylococcus epidermidis for thigh overgrowth only likely a contaminant; 05/05 negative; 05/02 with finegoldia -history of MRSA nares 04/21 negative -Keflex x 2, cefixime, levaquin and doxycycline course without clearance per history -concern for a deep-seated infection that is not being resolved with short courses of oral therapy -s/p operative procedure 07/08 with S epi and finegoldia. -there is no inciting trauma or events preceding this infection that the patient recalls including no bite injuries, soil, pedicures or other inciting events to suggest unusual organisms but this remains in the differential -Operative 07/08 finding no pus and MRI negative for OM; did debride down to tendon; specimens for bacterial aerobic and anaerobic showed S. Epi and Finegoldia on 07/08 -suspect the staph epi is not a true cause of a deep-seated infection given lack of hardware -we will treat with Augmentin 875 mg twice daily for the fin goal via, 07/13-current -plan at least a three-week treatment course but possibly longer -if the patient does not respond appropriately, we will set up IV antibiotics however with the debridement and oral antibiotics we will try to see if this would clear up with this combination, but low threshold to start IV antibiotics and this was discussed with her and her and all questions answered -Pending fungal and afb cultures 07/08 -follow up in ID clinic on Tuesday at which time we can undress the foot for further evaluation -Check crp, esr ordered DM -patient denies a history of diabetes but this is in her record and states that she is not currently on any management. Previous BMP shows mildly elevated glucose. -Check a1c Healthcare maintenance -history of prior flu shots, would recommend flu shot this fall -history of pneumococcal conjugate and polysaccharide vaccines -history of tetanus vaccine 2018 -recommend keeping up-to-date on all recommended vaccines Left knee degenerative disease -operative management by Orthopedics is on hold pending resolution of toe infection Return to clinic in 1 week 22 Min of care Please note Portions of this note utilized [employer] dictation software, please excuse any typographical or grammatical errors. [facility]* Nursing Notes - Gabby Rondon RN - 07/08/2023 11:32 AM EDT Written and verbal discharge instructions reviewed. Understanding voiced.spouse at bedside. Questions encouraged and answered. Assisted to edge of bed. Spouse assisting with dressing. [facility]09-[facility] Miscellaneous Notes* Nursing Notes - Gabby Rondon RN - 07/08/2023 11:32 AM EDT Written and verbal discharge instructions reviewed. Understanding voiced.spouse at bedside. Questions encouraged and answered. Assisted to edge of bed. Spouse assisting with dressing. * Op Note - Dawn Uriarte DPM - 07/08/2023 10:36 AM EDT DATE: 07/08/2023 Patient: Elena Galeano Pre-Op Dx: Abscess of fourth toe of left foot [L02.612] Cellulitis of fourth toe, left [L03.032] Post-Op Dx: Abscess of fourth toe of left foot [L02.612] Cellulitis of fourth toe, left [L03.032] Procedure: Procedure(s) (LRB): I&D BURSA FOOT - 4th toe (Left) Surgeon: Surgeon(s) and Role: * Dawn Uriarte DPM - Primary Anesthesia: MAC COMPLICATIONS: None. BLOOD LOSS: Minimal ANTIBIOTIC: 2g Ancef- given after the procedure IMPLANTS: none INJECTABLES: 7cc naropin SPECIMENS: * No order type specified * ID Type Source Tests Collected by Time Destination A : left fourth toe Fluid/Swab - Other FOOT ACID FAST CULTURE Dawn Uriarte DPM 07/08/2023 1002 B : left fourth toe Fluid/Swab - Other FOOT ANAEROBE CULTURE, CULTURE WOUND Dawn Uriarte DPM 07/08/2023 1003 C : left fourth toe Fluid/Swab - Other FOOT FUNGUS CULTURE Dawn Uriarte DPM 07/08/2023 1003 INDICATIONS FOR PROCEDURE: See History and Physical PROCEDURE IN DETAIL: Patient was introduced into the operating room and placed in supine position on the operating tableand the anesthesiologist initiated MAC anesthesia. A timeout was performed before starting the procedure. Patient was sterilely prepped and draped in the standard fashion. Attention was directed to the left 4th toe. 7cc of naropin were injected as a local block. A 3cm incision was made at the plantar left 4th toe and then blunt dissection down to the tendon. There was no gross purulence. Three deep cultures were taken. The area then was flushed with saline and then skin closure with 4-0 nylon. A dressing of adaptic, 4x4s, kerlix and coban Patient tolerated procedure and anesthesia well. All needle and sponge counts were correct x2. Transferred to PACU in stable Condition. Cultures for aerobic, anaerobic, acid fast and fungal. Dawn Uriarte DPM * Brief Op Note - Dawn Uriarte DPM - 07/08/2023 10:36 AM EDT POST OPERATIVE/PROCEDURE NOTE Elena Galeano is a 63 y.o. female [id number] SURGEON Surgeon(s) and Role: Dawn Uriarte DPM HEAD STOCK TRANSFER CLERK NONE ANESTHESIOLOGIST: No responsible provider has been recorded for the case. SURGICAL STAFF Single Pass Soil Stabilizer Operator: Clara Mello RN Scrub Person: Chelsea Serna RN; Michael Abreu PRE OPERATIVE DIAGNOSIS ICD-10-CM 1. Abscess of fourth toe of left foot L02.612 2. Cellulitis of fourth toe, left L03.032 Post-Op Dx: Abscess of fourth toe of left foot [L02.612] Cellulitis of fourth toe, left [L03.032] Procedure: Procedure(s) (LRB): I&D BURSA FOOT - 4th toe (Left) CPT CODE ANESTHESIA (type of) Monitor Anesthesia Care ESTIMATED BLOOD LOSS MINIMAL DRAINS NONE BLOOD PRODUCTS NONE CONDITION OF PATIENT STABLE COMPLICATIONS NONE GRAFTS AND/OR IMPLANTS See OR Nursing Documentation SPECIMENS Pathology specimen sent ID Type Source Tests Collected by Time Destination A : left fourth toe Fluid/Swab - Other FOOT ACID FAST CULTURE Dawn Uriarte DPM 07/08/2023 1002 B : left fourth toe Fluid/Swab - Other FOOT ANAEROBE CULTURE, CULTURE WOUND Dawn Uriarte DPM 07/08/2023 1003 C : left fourth toe Fluid/Swab - Other FOOT FUNGUS CULTURE Dawn Uriarte DPM 07/08/2023 1003 Dawn Uriarte DPM 07/08/2023 10:36 AM documented in this [facility] [place]09-15-[facility]23 Surgery Postoperative evaluation and management note* Op Note - Dawn Uriarte DPM - 07/08/2023 10:36 AM EDT DATE: 07/08/2023 Patient: Elena Galeano Pre-Op Dx: Abscess of fourth toe of left foot [L02.612] Cellulitis of fourth toe, left [L03.032] Post-Op Dx: Abscess of fourth toe of left foot [L02.612] Cellulitis of fourth toe, left [L03.032] Procedure: Procedure(s) (LRB): I&D BURSA FOOT - 4th toe (Left) Surgeon: Surgeon(s) and Role: * Dawn Uriarte DPM - Primary Anesthesia: MAC COMPLICATIONS: None. BLOOD LOSS: Minimal ANTIBIOTIC: 2g Ancef- given after the procedure IMPLANTS: none INJECTABLES: 7cc naropin SPECIMENS: * No order type specified * ID Type Source Tests Collected by Time Destination A : left fourth toe Fluid/Swab - Other FOOT ACID FAST CULTURE Dawn Uriarte DPM 07/08/2023 1002 B : left fourth toe Fluid/Swab - Other FOOT ANAEROBE CULTURE, CULTURE WOUND Dawn Uriarte DPM 07/08/2023 1003 C : left fourth toe Fluid/Swab - Other FOOT FUNGUS CULTURE Dawn Uriarte DPM 07/08/2023 1003 INDICATIONS FOR PROCEDURE: See History and Physical PROCEDURE IN DETAIL: Patient was introduced into the operating room and placed in supine position on the operating tableand the anesthesiologist initiated MAC anesthesia. A timeout was performed before starting the procedure. Patient was sterilely prepped and draped in the standard fashion. Attention was directed to the left 4th toe. 7cc of naropin were injected as a local block. A 3cm incision was made at the plantar left 4th toe and then blunt dissection down to the tendon. There was no gross purulence. Three deep cultures were taken. The area then was flushed with saline and then skin closure with 4-0 nylon. A dressing of adaptic, 4x4s, kerlix and coban Patient tolerated procedure and anesthesia well. All needle and sponge counts were correct x2. Transferred to PACU in stable Condition. Cultures for aerobic, anaerobic, acid fast and fungal. Dawn Uriarte DPM [facility]09-15-[facility] Surgery Postoperative evaluation and management note* Brief Op Note - Dawn Uriarte DPM - 07/08/2023 10:36 AM EDT POST OPERATIVE/PROCEDURE NOTE Elena Galeano is a 63 y.o. female [id number] SURGEON Surgeon(s) and Role: Dawn Uriarte DPM HEAD STOCK TRANSFER CLERK NONE ANESTHESIOLOGIST: No responsible provider has been recorded for the case. SURGICAL STAFF Single [employer] Stabilizer Operator: Clara Mello RN Scrub Person: Chelsea Serna RN; Michael Abreu PRE OPERATIVE DIAGNOSIS ICD-10-CM 1. Abscess of fourth toe of left foot L02.612 2. Cellulitis of fourth toe, left L03.032 Post-Op Dx: Abscess of fourth toe of left foot [L02.612] Cellulitis of fourth toe, left [L03.032] Procedure: Procedure(s) (LRB): I&D BURSA FOOT - 4th toe (Left) CPT CODE ANESTHESIA (type of) Monitor Anesthesia Care ESTIMATED BLOOD LOSS MINIMAL DRAINS NONE BLOOD PRODUCTS NONE CONDITION OF PATIENT STABLE COMPLICATIONS NONE GRAFTS AND/OR IMPLANTS See OR Nursing Documentation SPECIMENS Pathology specimen sent ID Type Source Tests Collected by Time Destination A : left fourth toe Fluid/Swab - Other FOOT ACID FAST CULTURE Dawn Uriarte DPM 07/08/2023 1002 B : left fourth toe Fluid/Swab - Other FOOT ANAEROBE CULTURE, CULTURE WOUND Dawn Uriarte DPM 07/08/2023 1003 C : left fourth toe Fluid/Swab - Other FOOT FUNGUS CULTURE Dawn Uriarte DPM 07/08/2023 1003 Dawn Uriarte DPM 07/08/2023 10:36 AM [facility] Hospital Discharge instructions* Discharge Instructions* Dawn Uriarte DPM - 07/08/2023 9:10 AM EDT [facility] DISCHARGE INSTRUCTIONS Patient s Name: Elena Galeano DIET: Resume pre-procedure diet. If you are diabetic, please keep blood sugars under good control. ACTIVITY: Minimal activity until your 1st follow up appointment. Keep foot elevated while you are sitting and sleeping. full-weight bearing . MEDICATIONS: Resume pre-procedure medications, unless otherwise directed. If you were prescribed pain medicine- take it every 4-6hours for the first 24hours, then you can change to Tylenol 500 to 1000mg every 8 hours After the 1st 24hours take your pain medicine every 6-8 hours as needed for moderate to severe pain. If directed by Dr. Uriarte take a baby aspirin daily after surgery until directed to stop. Pain medicine can cause constipation, please take a stool softener while on pain medication WOUND CARE: Do not remove dressing Do not get dressing wet POST PROCEDURE: Soreness and tenderness to the site can last several weeks. Keep foot elevated while you are sitting and sleeping. An ice pack can be applied behind the knee for 20min at a time, every hour or two while you are awake. Do not use ice when you are sleeping If you were put into a cam walker (walking boot) this should stay on at all times except for changing clothes. Keep follow-up appointment. If a white compression hose was placed on the non-surgical leg- this will be worn until Dr. Duenasirects you to stop. This helps prevent blood clots No smoking for 6-8 weeks as it increases the risk of developing blood clots and slow healing. If you are interested in smoking cessation, contact [facility] at [phone]. When to call: Fever of 101 degrees or higher Extreme pain Nausea and vomiting Call Dr. Uriarte's office at [phone] If there is a medical emergency call 911 or go to your nearest emergency department. Dr. Uriarte documented in this [facility] [place]09-15-2023 Attending History and physical note* Dawn Uriarte DPM - 07/08/2023 9:09 AM EDT I have examined the patient and reviewed the previous H&P completed, and there are no changes. Dawn Uriarte DPM 9:09 AM 07/08/2023 Source Note - Dawn Uriarte DPM - 07/08/2023 9:08 AM EDT Patient Elena Galeano Date: 07/08/2023 Chief Complaint: Elena Galeano is a 63 y.o. year old female who presents today with a complaintof an ulcer to the left 4th toe Subjective: Elena states that the toe will build put pressure and then she can squeeze out a dropof pus from the left 4th toe. She was just on two weeks of doxy History that the toe is improving, but something is happening on the underside of the toe. History of the left 4th toe. She notes that she is on her 2nd round of keflex. She has had an xray a few days ago and some purulence drained from the toe a few days ago. A culture is pending. She notes that the toe has been bad for 3-4 months, but she really has had problems on and off for about a month. She does not remember any kind of trauma. Allergies Allergen Reactions Nsaids Has CKD-3a, and Anemia No current outpatient medications on file. Past Medical History: Diagnosis Date A-fib Anemia low Fe Arrhythmia Arthritis ASCUS of cervix with negative high risk HPV Asthma not asthma B12 deficiency Carotid stenosis, bilateral-Right 30%, and left 60% Central retinal artery occlusion of left eye CKD (chronic kidney disease) stage 3, GFR 30-59 ml/min-3a patient denies CLL (chronic lymphocytic leukemia) 2012 [id number] on 09-30-2020 Depression Diffuse non-Hodgkin's lymphoma chemotherapy Folate deficiency GERD (gastroesophageal reflux disease) Gout pt denies Hiatal hernia pt denies Hyperglycemia Hyperlipidemia LDL goal <70 Hypertension Hyponatremia Liver disease fatty liver Non-Hodgkin lymphoma 2012 in remission PERCY (obstructive sleep apnea) PVC's (premature ventricular contractions) 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 (blindness) Past Surgical History: Procedure Laterality Date INJECTION NERVE OTHER PERIPHERAL Left 12/16/2022 Laterality: Left; Surgeon: Isreal Sigala MD; Location: [facility] GUIDANCE FLUOROSCOPIC NEEDLE OR CATHETER PLACEMENT FOR SPINE INJECTION ADD-ON PX Left 12/16/2022 Laterality: Left; Surgeon: Isreal Sigala MD; Location: [facility] OR SUSPENSION URETHRA/URETHROVESICAL FEMALE OPEN W/ SYNTHETIC MATERIAL (SLING) Midline 08/31/2022 Laterality: Midline; Surgeon: Dariusz Rangel MD; Location: [facility] OR CYSTOURETHROSCOPY W/ DILATION BLADDER Midline 08/31/2022 Laterality: Midline; Surgeon: Dariusz Rangel MD; Location: [facility] OR COLPORRHAPHY ANTEROPOSTERIOR REPAIR CYSTOCELE & RECTOCELE Midline 08/31/2022 Laterality: Midline; Surgeon: Dariusz Rangel MD; Location: [facility] OR ARTHRODESIS SACROILIAC JOINT MINIMALLY INVASIVE W/ TRANSFIXING DEVICE Left 06/17/2022 Laterality: Left; Surgeon: Isreal Sigala MD; Location: [facility] GUIDANCE FLUOROSCOPIC NEEDLE OR CATHETER PLACEMENT FOR SPINE INJECTION ADD-ON PX Left 06/17/2022 Laterality: Left; Surgeon: Isreal Sigala MD; Location: [facility] OR EGD W/ DILATION BALLOON N/A 12/01/2021 Laterality: N/A; Surgeon: Indra Parrish DO; Location: [facility] SHOULDER ARTHROSCOPY Left 06/18/2021 REMOVAL CENTRAL VENOUS ACCESS DEVICE TUNNELED W/ PORT PUMP Left 09/13/2019 Laterality: Left; Surgeon: Eduardo Muñoz MD; Location: [facility] INTERVENTIONAL RADIOLOGY (VIR) EGD W/ DILATION BALLOON N/A 06/30/2018 Laterality: N/A; Surgeon: Indra Parrish DO; Location: [facility] EGD DIAGNOSTIC N/A 04/07/2018 Laterality: N/A; Surgeon: Wilner Leigh MD; Location: [facility] COLONOSCOPY DIAGNOSTIC N/A 04/07/2018 Laterality: N/A; Surgeon: Wilner Leigh MD; Location: [facility] KNEE REPLACEMENT Right 05/2015 done at [place]--CC ARTHROPLASTY KNEE TOTAL Right 04/2015 INSERTION PICC W/ PORT PUMP 2014 power port COLONOSCOPY DIAGNOSTIC 2006 SALPINGO-OOPHORECTOMY OPEN N/A 1983 APPENDECTOMY OPEN 1983 TONSILLECTOMY ADENOIDECTOMY 1967 EGD DIAGNOSTIC 10 months ago Social History Occupational History Employer: RETIRED Tobacco Use Smoking status: Former Packs/day: 0.75 Years: 35.00 Additional pack years: 0.00 Total pack years: 26.25 Types: Cigarettes Quit date: 04/23/2013 Years since quittin.2 Smokeless tobacco: Never Vaping Use Vaping Use: Never used Substance and Sexual Activity Alcohol use: Yes Alcohol/week: 2.0 standard drinks of alcohol Types: 2 Cans of beer per week Drug use: Never Sexual activity: Not Currently control/protection: Menopause ROS: Review of Systems Nurse Note: Review of Systems Constitutional: Negative for fatigue, fever and unexpected weight change. HENT: No difficulty swallowing No change in voice Respiratory: Negative for cough, shortness of breath and wheezing. Cardiovascular: Negative for chest pain, palpitations and leg swelling. Gastrointestinal: Negative for constipation, diarrhea, nausea and vomiting. Neurological: Negative for tremors, weakness and numbness. Psychiatric/Behavioral: Negative for sleep disturbance. The patient is not nervous/anxious. Nursing Assessment: Physical Exam Objective: Vitals: 07/08/23 0856 BP: (!) 193/93 Pulse: Temp: SpO2: Objective: Vascular: Dorsalis pedis and posterior tibial pulses are readilly palpable and graded at 2/4 bilateral. Dermatological: Left 4th toe with mild swelling and localized erythema. With pressure I am able to push out one drop of purulence from the plantar surface of the toe MRI FOOT LEFT WITHOUT CONTRAST Result Date: 05/10/2023 EXAM: MRI FOOT LEFT WITHOUT CONTRAST HISTORY: For stress swelling and abscess. Rule out osteomyelitis COMPARISON: None. TECHNIQUE: Multiplanar MRI of left foot was performed without contrast in sagittal, coronal and axial planes using T1, T2 and STIR pulsing sequences FINDINGS: Bony structures of left foot including visualized tarsal bones, metatarsals and phalanges demonstrate no evidence of fracture or contusion. No dislocation is seen. Small joint effusion is seen in the first metatarsophalangeal joint. Subtle marrow edema is suspected involving the fourth distal phalanx without bony destructive changes or abnormal T1 signal. No cortical disruption is seen to suggest osteomyelitis. The flexor and extensor tendons appear intact. Visualized plantar fascia appears intact. Collateral ligaments appear intact. Lisfranc ligament is visualized and appears intact. Evidence of superficial veindeep soft tissue edema involving fourth toe without focal collections. Muscles demonstrate normal signal. IMPRESSION: Soft tissue edema 4th distal phalanx without T1 abnormality or cortical disruption to suggest osteomyelitis. XR FOOT LEFT 3 VIEWS Result Date: 05/02/2023 EXAM: XR FOOT LEFT 3 VIEWS HISTORY: infection, redness, drainage of left 4th toe. COMPARISON: None available. FINDINGS: 3 views of the left foot were obtained. These were AP, oblique and lateral views weightbearing I do not specifically see any evidence of fracture or dislocation. There are no peria rticular calcifications, erosions or obvious signs of osteomyelitis. No soft tissue air is seen. The fourth digit appears prominently swollen IMPRESSION: 1. Prominent soft tissue swelling of the fourth digit of the left foot. 2. I do not seeany evidence of fracture, dislocation, advanced arthropathy or osteomyelitis. Assessment: Elena was seen today for ulcer, cellulitis and follow-up. Diagnoses and all orders for this visit: Cellulitis and abscess of toe of left foot - CBC,PLATELETS; Future - COMPREHENSIVE METABOLIC PANEL; Future - AMB REFERRAL TO INFECTIOUS DISEASE - MRI FOOT LEFT WITHOUT CONTRAST; Future acute complicated, limb threatening diagnosis Plan: Patient was seen and evaluated today MRI left foot- concern with OM of left 4th toe with recurrent purulence coming out of toe ID referral for IV antibiotics Consider HBO At risk for loss of digit Non-surgical/ alternative options were offered and discussed with the patient. I discussed the potential risks of not performing surgery as well. Elena Galeano has elected to proceed with surgery. she will have the following proposed procedures: 1. Left fourth toe deep Incision and drainage This included a discussion on the indications, potential complications, anticipated results and expected postoperative course. We discussed weight bearing status after this procedure. Elena Galeano will be full weight bearing after surgery The patient understands that if they are non-weight bearing after the surgery this means no weight on the foot and they will use one of the following: crutches, knee scooter or walker. All of the patient's questions were answered. No guarantees were given to outcome of this procedure. The patient understands that she will leave the bandage on until their 1st post operative appointment unless given specific instructions to remove it before then. Patient understands the material risks and dangers inherently and potentially involved with the proposed therapy. This includes, but is not limited to: over correction and under correction, prolongedpain and swelling, nerve damage, recurrence of deformity, wound and bone healing complications, scarring, numbness and infection . We also discussed the possibility of deep vein thrombosis and digit/ limb loss and even . We discussed the signs and symptoms of deep vein thrombosis and how this is an emergency if this happens. On the day of surgery the patient will have a compression hose put on the contralateral surgery limb to help decrease this chance. The patient will also start aspirin therapy after surgery if ap propriate. The patient has been asked to read the consent and I went over the written consent with the patient. The consent was signed and scanned into their chart. We will schedule the surgery at the patient's request. No contraindications noted at this time. Appropriate blood work will be ordered An appointment will be made with the patient's PCP. This is for a surgical optimization, history and physical and for surgical clearance/ risk stratification. The patient will undergo MAC anesthesia. I will prescribe the following pain medicine: norco. The patient understands that narcotics can be addictive and that they will only be prescribed for 3- 5 days for moderate to severe pain after surgery. Elena understands that the goal of pain medicine is to make the pain tolerable and not gone completely. After the first 24 hours they can lengthenthe time between pain medicine and switch to Tylenol. We also talked about how pain medicine can cause constipation and they will consider a stool softener while on narcotics. I will check an OARRS report on the patient. The patient will follow up in the office about 7 days after surgery and were encouraged to call theoffice if she had any questions before tor after surgery. High level decision making was required to formulate the assessment and plan along with medication management and review of appropriate labs and imaging. Please note that this visit and patient were complex due to the seriousness and/or number of active problems/diagnoses/medication(s) H&P above dated 06/28/23 copied and pasted from progress notes section to H&P section for interval update. [employer] Phone: [phone] History and physical note* Dawn Uriarte DPM - 07/08/2023 9:09 AM EDT I have examined the patient and reviewed the previous H&P completed, and there are no changes. Dawn Uriarte DPM 9:09 AM 07/08/2023 Source Note - Dawn Uriarte DPM - 07/08/2023 9:08 AM EDT Patient Elena Galeano Date: 07/08/2023 Chief Complaint: Elena Galeano is a 63 y.o. year old female who presents today with a complaintof an ulcer to the left 4th toe Subjective: Elena states that the toe will build put pressure and then she can squeeze out a dropof pus from the left 4th toe. She was just on two weeks of doxy History that the toe is improving, but something is happening on the underside of the toe. History of the left 4th toe. She notes that she is on her 2nd round of keflex. She has had an xray a few days ago and some purulence drained from the toe a few days ago. A culture is pending. She notes that the toe has been bad for 3-4 months, but she really has had problems on and off for about a month. She does not remember any kind of trauma. Allergies Allergen Reactions Nsaids Has CKD-3a, and Anemia No current outpatient medications on file. Past Medical History: Diagnosis Date A-fib Anemia low Fe Arrhythmia Arthritis ASCUS of cervix with negative high risk HPV Asthma not asthma B12 deficiency Carotid stenosis, bilateral-Right 30%, and left 60% Central retinal artery occlusion of left eye CKD (chronic kidney disease) stage 3, GFR 30-59 ml/min-3a patient denies CLL (chronic lymphocytic leukemia) 2011 [id number] on 09-30-2020 Depression Diffuse non-Hodgkin's lymphoma chemotherapy Folate deficiency GERD (gastroesophageal reflux disease) Gout pt denies Hiatal hernia pt denies Hyperglycemia Hyperlipidemia LDL goal <70 Hypertension Hyponatremia Liver disease fatty liver Non-Hodgkin lymphoma 2011 in remission PERCY (obstructive sleep apnea) PVC's (premature ventricular contractions) 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 (blindness) Past Surgical History: Procedure Laterality Date INJECTION NERVE OTHER PERIPHERAL Left 12/16/2022 Laterality: Left; Surgeon: Isreal Sigala MD; Location: [facility]UIDANCE FLUOROSCOPIC NEEDLE OR CATHETER PLACEMENT FOR SPINE INJECTION ADD-ON PX Left 12/16/2022 Laterality: Left; Surgeon: Isreal Sigala MD; Location: [facility] OR SUSPENSION URETHRA/URETHROVESICAL FEMALE OPEN W/ SYNTHETIC MATERIAL (SLING) Midline 08/31/2022 Laterality: Midline; Surgeon: Dariusz Rangel MD; Location: [facility] OR CYSTOURETHROSCOPY W/ DILATION BLADDER Midline 08/31/2022 Laterality: Midline; Surgeon: Dariusz Rangel MD; Location: [facility] OR COLPORRHAPHY ANTEROPOSTERIOR REPAIR CYSTOCELE & RECTOCELE Midline 08/31/2022 Laterality: Midline; Surgeon: Dariusz Rangel MD; Location: [facility] OR ARTHRODESIS SACROILIAC JOINT MINIMALLY INVASIVE W/ TRANSFIXING DEVICE Left 06/17/2022 Laterality: Left; Surgeon: Isreal Sigala MD; Location: [facility] GUIDANCE FLUOROSCOPIC NEEDLE OR CATHETER PLACEMENT FOR SPINE INJECTION ADD-ON PX Left 06/17/2022 Laterality: Left; Surgeon: Isreal Sigala MD; Location: [facility] OR EGD W/ DILATION BALLOON N/A 12/01/2021 Laterality: N/A; Surgeon: Indra S Zaghlool, DO; Location: [facility] SHOULDER ARTHROSCOPY Left 06/18/2021 REMOVAL CENTRAL VENOUS ACCESS DEVICE TUNNELED W/ PORT PUMP Left 09/13/2019 Laterality: Left; Surgeon: Eduardo Muñoz MD; Location: [facility] INTERVENTIONAL RADIOLOGY (VIR) EGD W/ DILATION BALLOON N/A 06/30/2018 Laterality: N/A; Surgeon: Indra Parrish DO; Location: [facility] EGD DIAGNOSTIC N/A 04/07/2018 Laterality: N/A; Surgeon: Wilner Leigh MD; Location: [facility] COLONOSCOPY DIAGNOSTIC N/A 04/07/2018 Laterality: N/A; Surgeon: Wilner Leigh MD; Location: [facility] KNEE REPLACEMENT Right 05/2015 done at [place]--CC ARTHROPLASTY KNEE TOTAL Right 04/2015 INSERTION PICC W/ PORT PUMP 2014 power port COLONOSCOPY DIAGNOSTIC 2006 SALPINGO-OOPHORECTOMY OPEN N/A 1983 APPENDECTOMY OPEN 1983 TONSILLECTOMY ADENOIDECTOMY 1967 EGD DIAGNOSTIC 10 months ago Social History Occupational History Employer: RETIRED Tobacco Use Smoking status: Former Packs/day: 0.75 Years: 35.00 Additional pack years: 0.00 Total pack years: 26.25 Types: Cigarettes Quit date: 04/23/2013 Years since quittin.2 Smokeless tobacco: Never Vaping Use Vaping Use: Never used Substance and Sexual Activity Alcohol use: Yes Alcohol/week: 2.0 standard drinks of alcohol Types: 2 Cans of beer per week Drug use: Never Sexual activity: Not Currently control/protection: Menopause ROS: Review of Systems Nurse Note: Review of Systems Constitutional: Negative for fatigue, fever and unexpected weight change. HENT: No difficulty swallowing No change in voice Respiratory: Negative for cough, shortness of breath and wheezing. Cardiovascular: Negative for chest pain, palpitations and leg swelling. Gastrointestinal: Negative for constipation, diarrhea, nausea and vomiting. Neurological: Negative for tremors, weakness and numbness. Psychiatric/Behavioral: Negative for sleep disturbance. The patient is not nervous/anxious. Nursing Assessment: Physical Exam Objective: Vitals: 07/08/23 0856 BP: (!) 193/93 Pulse: Temp: SpO2: Objective: Vascular: Dorsalis pedis and posterior tibial pulses are readilly palpable and graded at 2/4 bilateral. Dermatological: Left 4th toe with mild swelling and localized erythema. With pressure I am able to push out one drop of purulence from the plantar surface of the toe MRI FOOT LEFT WITHOUT CONTRAST Result Date: 05/10/2023 EXAM: MRI FOOT LEFT WITHOUT CONTRAST HISTORY: For stress swelling and abscess. Rule out osteomyelitis COMPARISON: None. TECHNIQUE: Multiplanar MRI of left foot was performed without contrast in sagittal, coronal and axial planes using T1, T2 and STIR pulsing sequences FINDINGS: Bony structures of left foot including visualized tarsal bones, metatarsals and phalanges demonstrate no evidence of fracture or contusion. No dislocation is seen. Small joint effusion is seen in the first metatarsophalangeal joint. Subtle marrow edema is suspected involving the fourth distal phalanx without bony destructive changes or abnormal T1 signal. No cortical disruption is seen to suggest osteomyelitis. The flexor and extensor tendons appear intact. Visualized plantar fascia appears intact. Collateral ligaments appear intact. Lisfranc ligament is visualized and appears intact. Evidence of superficial veindeep soft tissue edema involving fourth toe without focal collections. Muscles demonstrate normal signal. IMPRESSION: Soft tissue edema 4th distal phalanx without T1 abnormality or cortical disruption to suggest osteomyelitis. XR FOOT LEFT 3 VIEWS Result Date: 05/02/2023 EXAM: XR FOOT LEFT 3 VIEWS HISTORY: infection, redness, drainage of left 4th toe. COMPARISON: None available. FINDINGS: 3 views of the left foot were obtained. These were AP, oblique and lateral views weightbearing I do not specifically see any evidence of fracture or dislocation. There are no peria rticular calcifications, erosions or obvious signs of osteomyelitis. No soft tissue air is seen. The fourth digit appears prominently swollen IMPRESSION: 1. Prominent soft tissue swelling of the fourth digit of the left foot. 2. I do not seeany evidence of fracture, dislocation, advanced arthropathy or osteomyelitis. Assessment: Elena was seen today for ulcer, cellulitis and follow-up. Diagnoses and all orders for this visit: Cellulitis and abscess of toe of left foot - CBC,PLATELETS; Future - COMPREHENSIVE METABOLIC PANEL; Future - AMB REFERRAL TO INFECTIOUS DISEASE - MRI FOOT LEFT WITHOUT CONTRAST; Future acute complicated, limb threatening diagnosis Plan: Patient was seen and evaluated today MRI left foot- concern with OM of left 4th toe with recurrent purulence coming out of toe ID referral for IV antibiotics Consider HBO At risk for loss of digit Non-surgical/ alternative options were offered and discussed with the patient. I discussed the potential risks of not performing surgery as well. Elena Galeano has elected to proceed with surgery. she will have the following proposed procedures: 1. Left fourth toe deep Incision and drainage This included a discussion on the indications, potential complications, anticipated results and expected postoperative course. We discussed weight bearing status after this procedure. Elena Galeano will be full weight bearing after surgery The patient understands that if they are non-weight bearing after the surgery this means no weight on the foot and they will use one of the following: crutches, knee scooter or walker. All of the patient's questions were answered. No guarantees were given to outcome of this procedure. The patient understands that she will leave the bandage on until their 1st post operative appointment unless given specific instructions to remove it before then. Patient understands the material risks and dangers inherently and potentially involved with the proposed therapy. This includes, but is not limited to: over correction and under correction, prolongedpain and swelling, nerve damage, recurrence of deformity, wound and bone healing complications, scarring, numbness and infection . We also discussed the possibility of deep vein thrombosis and digit/ limb loss and even . We discussed the signs and symptoms of deep vein thrombosis and how this is an emergency if this happens. On the day of surgery the patient will have a compression hose put on the contralateral surgery limb to help decrease this chance. The patient will also start aspirin therapy after surgery if ap propriate. The patient has been asked to read the consent and I went over the written consent with the patient. The consent was signed and scanned into their chart. We will schedule the surgery at the patient's request. No contraindications noted at this time. Appropriate blood work will be ordered An appointment will be made with the patient's PCP. This is for a surgical optimization, history and physical and for surgical clearance/ risk stratification. The patient will undergo MAC anesthesia. I will prescribe the following pain medicine: norco. The patient understands that narcotics can be addictive and that they will only be prescribed for 3- 5 days for moderate to severe pain after surgery. Elena understands that the goal of pain medicine is to make the pain tolerable and not gone completely. After the first 24 hours they can lengthenthe time between pain medicine and switch to Tylenol. We also talked about how pain medicine can cause constipation and they will consider a stool softener while on narcotics. I will check an OARRS report on the patient. The patient will follow up in the office about 7 days after surgery and were encouraged to call theoffice if she had any questions before tor after surgery. High level decision making was required to formulate the assessment and plan along with medication management and review of appropriate labs and imaging. Please note that this visit and patient were complex due to the seriousness and/or number of active problems/diagnoses/medication(s) H&P above dated 06/28/23 copied and pasted from progress notes section to H&P section for interval update. * Dawn Uriarte DPM - 07/08/2023 9:08 AM EDT Patient Elena Galeano Date: 07/08/2023 Chief Complaint: Elena Galeano is a 63 y.o. year old female who presents today with a complaintof an ulcer to the left 4th toe Subjective: Elena states that the toe will build put pressure and then she can squeeze out a dropof pus from the left 4th toe. She was just on two weeks of doxy History that the toe is improving, but something is happening on the underside of the toe. History of the left 4th toe. She notes that she is on her 2nd round of keflex. She has had an xray a few days ago and some purulence drained from the toe a few days ago. A culture is pending. She notes that the toe has been bad for 3-4 months, but she really has had problems on and off for about a month. She does not remember any kind of trauma. Allergies Allergen Reactions Nsaids Has CKD-3a, and Anemia No current outpatient medications on file. Past Medical History: Diagnosis Date A-fib Anemia low Fe Arrhythmia Arthritis ASCUS of cervix with negative high risk HPV Asthma not asthma B12 deficiency Carotid stenosis, bilateral-Right 30%, and left 60% Central retinal artery occlusion of left eye CKD (chronic kidney disease) stage 3, GFR 30-59 ml/min-3a patient denies CLL (chronic lymphocytic leukemia) 2011 [id number] on 09-30-2020 Depression Diffuse non-Hodgkin's lymphoma chemotherapy Folate deficiency GERD (gastroesophageal reflux disease) Gout pt denies Hiatal hernia pt denies Hyperglycemia Hyperlipidemia LDL goal <70 Hypertension Hyponatremia Liver disease fatty liver Non-Hodgkin lymphoma 2012 in remission PERCY (obstructive sleep apnea) PVC's (premature ventricular contractions) 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 (blindness) Past Surgical History: Procedure Laterality Date INJECTION NERVE OTHER PERIPHERAL Left 12/16/2022 Laterality: Left; Surgeon: Isreal Sigala MD; Location: [facility]UIDANCE FLUOROSCOPIC NEEDLE OR CATHETER PLACEMENT FOR SPINE INJECTION ADD-ON PX Left 12/16/2022 Laterality: Left; Surgeon: Isreal Sigala MD; Location: [facility] OR SUSPENSION URETHRA/URETHROVESICAL FEMALE OPEN W/ SYNTHETIC MATERIAL (SLING) Midline 08/31/2022 Laterality: Midline; Surgeon: Dariusz Rangel MD; Location: [facility] OR CYSTOURETHROSCOPY W/ DILATION BLADDER Midline 08/31/2022 Laterality: Midline; Surgeon: Dariusz Rangel MD; Location: [facility] OR COLPORRHAPHY ANTEROPOSTERIOR REPAIR CYSTOCELE & RECTOCELE Midline 08/31/2022 Laterality: Midline; Surgeon: Dariusz Rangel MD; Location: [facility] OR ARTHRODESIS SACROILIAC JOINT MINIMALLY INVASIVE W/ TRANSFIXING DEVICE Left 06/17/2022 Laterality: Left; Surgeon: Isreal Sigala MD; Location: [facility] GUIDANCE FLUOROSCOPIC NEEDLE OR CATHETER PLACEMENT FOR SPINE INJECTION ADD-ON PX Left 06/17/2022 Laterality: Left; Surgeon: Isreal Sigala MD; Location: [facility] OR EGD W/ DILATION BALLOON N/A 12/01/2021 Laterality: N/A; Surgeon: Indra Parrish DO; Location: [facility] SHOULDER ARTHROSCOPY Left 06/18/2021 REMOVAL CENTRAL VENOUS ACCESS DEVICE TUNNELED W/ PORT PUMP Left 09/13/2019 Laterality: Left; Surgeon: Eduardo Muñoz MD; [facility]: [facility]IONAL RADI[facility] (VIR) EGD W/ DILATION BALLOON N/A 06/30/2018 Laterality: N/A; Surgeon: Indra Parrish DO; Location: [facility] EGD DIAGNOSTIC N/A 04/07/2018 Laterality: N/A; Surgeon: Wilner Leigh MD; Location: [facility] COLONOSCOPY DIAGNOSTIC N/A 04/07/2018 Laterality: N/A; Surgeon: Wilner Leigh MD; Location: [facility] KNEE REPLACEMENT Right 05/2015 done at [place]--CC ARTHROPLASTY KNEE TOTAL Right 04/2015 INSERTION PICC W/ PORT PUMP 2014 power port COLONOSCOPY DIAGNOSTIC 2006 SALPINGO-OOPHORECTOMY OPEN N/A 1984 APPENDECTOMY OPEN 1983 TONSILLECTOMY ADENOIDECTOMY 1968 EGD DIAGNOSTIC 10 months ago Social History Occupational History Employer: RETIRED Tobacco Use Smoking status: Former Packs/day: 0.75 Years: 35.00 Additional pack years: 0.00 Total pack years: 26.25 Types: Cigarettes Quit date: 04/23/2013 Years since quittin.2 Smokeless tobacco: Never Vaping Use Vaping Use: Never used Substance and Sexual Activity Alcohol use: Yes Alcohol/week: 2.0 standard drinks of alcohol Types: 2 Cans of beer per week Drug use: Never Sexual activity: Not Currently control/protection: Menopause ROS: Review of Systems Nurse Note: Review of Systems Constitutional: Negative for fatigue, fever and unexpected weight change. HENT: No difficulty swallowing No change in voice Respiratory: Negative for cough, shortness of breath and wheezing. Cardiovascular: Negative for chest pain, palpitations and leg swelling. Gastrointestinal: Negative for constipation, diarrhea, nausea and vomiting. Neurological: Negative for tremors, weakness and numbness. Psychiatric/Behavioral: Negative for sleep disturbance. The patient is not nervous/anxious. Nursing Assessment: Physical Exam Objective: Vitals: 07/08/23 0856 BP: (!) 193/93 Pulse: Temp: SpO2: Objective: Vascular: Dorsalis pedis and posterior tibial pulses are readilly palpable and graded at 2/4 bilateral. Dermatological: Left 4th toe with mild swelling and localized erythema. With pressure I am able to push out one drop of purulence from the plantar surface of the toe MRI FOOT LEFT WITHOUT CONTRAST Result Date: 05/10/2023 EXAM: MRI FOOT LEFT WITHOUT CONTRAST HISTORY: For stress swelling and abscess. Rule out osteomyelitis COMPARISON: None. TECHNIQUE: Multiplanar MRI of left foot was performed without contrast in sagittal, coronal and axial planes using T1, T2 and STIR pulsing sequences FINDINGS: Bony structures of left foot including visualized tarsal bones, metatarsals and phalanges demonstrate no evidence of fracture or contusion. No dislocation is seen. Small joint effusion is seen in the first metatarsophalangeal joint. Subtle marrow edema is suspected involving the fourth distal phalanx without bony destructive changes or abnormal T1 signal. No cortical disruption is seen to suggest osteomyelitis. The flexor and extensor tendons appear intact. Visualized plantar fascia appears intact. Collateral ligaments appear intact. Lisfranc ligament is visualized and appears intact. Evidence of superficial veindeep soft tissue edema involving fourth toe without focal collections. Muscles demonstrate normal signal. IMPRESSION: Soft tissue edema 4th distal phalanx without T1 abnormality or cortical disruption to suggest osteomyelitis. XR FOOT LEFT 3 VIEWS Result Date: 05/02/2023 EXAM: XR FOOT LEFT 3 VIEWS HISTORY: infection, redness, drainage of left 4th toe. COMPARISON: None available. FINDINGS: 3 views of the left foot were obtained. These were AP, oblique and lateral views weightbearing I do not specifically see any evidence of fracture or dislocation. There are no peria rticular calcifications, erosions or obvious signs of osteomyelitis. No soft tissue air is seen. The fourth digit appears prominently swollen IMPRESSION: 1. Prominent soft tissue swelling of the fourth digit of the left foot. 2. I do not seeany evidence of fracture, dislocation, advanced arthropathy or osteomyelitis. Assessment: Elena was seen today for ulcer, cellulitis and follow-up. Diagnoses and all orders for this visit: Cellulitis and abscess of toe of left foot - CBC,PLATELETS; Future - COMPREHENSIVE METABOLIC PANEL; Future - AMB REFERRAL TO INFECTIOUS DISEASE - MRI FOOT LEFT WITHOUT CONTRAST; Future acute complicated, limb threatening diagnosis Plan: Patient was seen and evaluated today MRI left foot- concern with OM of left 4th toe with recurrent purulence coming out of toe ID referral for IV antibiotics Consider HBO At risk for loss of digit Non-surgical/ alternative options were offered and discussed with the patient. I discussed the potential risks of not performing surgery as well. Elena Galeano has elected to proceed with surgery. she will have the following proposed procedures: 1. Left fourth toe deep Incision and drainage This included a discussion on the indications, potential complications, anticipated results and expected postoperative course. We discussed weight bearing status after this procedure. Elena Galeano will be full weight bearing after surgery The patient understands that if they are non-weight bearing after the surgery this means no weight on the foot and they will use one of the following: crutches, knee scooter or walker. All of the patient's questions were answered. No guarantees were given to outcome of this procedure. The patient understands that she will leave the bandage on until their 1st post operative appointment unless given specific instructions to remove it before then. Patient understands the material risks and dangers inherently and potentially involved with the proposed therapy. This includes, but is not limited to: over correction and under correction, prolongedpain and swelling, nerve damage, recurrence of deformity, wound and bone healing complications, scarring, numbness and infection . We also discussed the possibility of deep vein thrombosis and digit/ limb loss and even . We discussed the signs and symptoms of deep vein thrombosis and how this is an emergency if this happens. On the day of surgery the patient will have a compression hose put on the contralateral surgery limb to help decrease this chance. The patient will also start aspirin therapy after surgery if ap propriate. The patient has been asked to read the consent and I went over the written consent with the patient. The consent was signed and scanned into their chart. We will schedule the surgery at the patient's request. No contraindications noted at this time. Appropriate blood work will be ordered An appointment will be made with the patient's PCP. This is for a surgical optimization, history and physical and for surgical clearance/ risk stratification. The patient will undergo MAC anesthesia. I will prescribe the following pain medicine: norco. The patient understands that narcotics can be addictive and that they will only be prescribed for 3- 5 days for moderate to severe pain after surgery. Elena understands that the goal of pain medicine is to make the pain tolerable and not gone completely. After the first 24 hours they can lengthenthe time between pain medicine and switch to Tylenol. We also talked about how pain medicine can cause constipation and they will consider a stool softener while on narcotics. I will check an OARRS report on the patient. The patient will follow up in the office about 7 days after surgery and were encouraged to call theoffice if she had any questions before tor after surgery. High level decision making was required to formulate the assessment and plan along with medication management and review of appropriate labs and imaging. Please note that this visit and patient were complex due to the seriousness and/or number of active problems/diagnoses/medication(s) H&P above dated 06/28/23 copied and pasted from progress notes section to H&P section for interval update. documented in this [facility] [place]09-15-2023 History and physical note* Dawn Uriarte DPM - 07/08/2023 9:08 AM EDT Patient Elena Galeano Date: 07/08/2023 Chief Complaint: Elena Galeano is a 63 y.o. year old female who presents today with a complaintof an ulcer to the left 4th toe Subjective: Elena states that the toe will build put pressure and then she can squeeze out a dropof pus from the left 4th toe. She was just on two weeks of doxy History that the toe is improving, but something is happening on the underside of the toe. History of the left 4th toe. She notes that she is on her 2nd round of keflex. She has had an xray a few days ago and some purulence drained from the toe a few days ago. A culture is pending. She notes that the toe has been bad for 3-4 months, but she really has had problems on and off for about a month. She does not remember any kind of trauma. Allergies Allergen Reactions Nsaids Has CKD-3a, and Anemia No current outpatient medications on file. Past Medical History: Diagnosis Date A-fib Anemia low Fe Arrhythmia Arthritis ASCUS of cervix with negative high risk HPV Asthma not asthma B12 deficiency Carotid stenosis, bilateral-Right 30%, and left 60% Central retinal artery occlusion of left eye CKD (chronic kidney disease) stage 3, GFR 30-59 ml/min-3a patient denies CLL (chronic lymphocytic leukemia) 2011 [id number] on 09-30-2020 Depression Diffuse non-Hodgkin's lymphoma chemotherapy Folate deficiency GERD (gastroesophageal reflux disease) Gout pt denies Hiatal hernia pt denies Hyperglycemia Hyperlipidemia LDL goal <70 Hypertension Hyponatremia Liver disease fatty liver Non-Hodgkin lymphoma 2012 in remission PERCY (obstructive sleep apnea) PVC's (premature ventricular contractions) 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 (blindness) Past Surgical History: Procedure Laterality Date INJECTION NERVE OTHER PERIPHERAL Left 12/16/2022 Laterality: Left; Surgeon: Isreal Sigala MD; Location: [facility] OR GUIDANCE FLUOROSCOPIC NEEDLE OR CATHETER PLACEMENT FOR SPINE INJECTION ADD-ON PX Left 12/16/2022 Laterality: Left; Surgeon: Isreal Sigala MD; Location: [facility] OR SUSPENSION URETHRA/URETHROVESICAL FEMALE OPEN W/ SYNTHETIC MATERIAL (SLING) Midline 08/31/2022 Laterality: Midline; Surgeon: Dariusz Rangel MD; Location: [facility] OR CYSTOURETHROSCOPY W/ DILATION BLADDER Midline 08/31/2022 Laterality: Midline; Surgeon: Dariusz Rangel MD; Location: [facility] OR COLPORRHAPHY ANTEROPOSTERIOR REPAIR CYSTOCELE & RECTOCELE Midline 08/31/2022 Laterality: Midline; Surgeon: Dariusz Rangel MD; Location: [facility] OR ARTHRODESIS SACROILIAC JOINT MINIMALLY INVASIVE W/ TRANSFIXING DEVICE Left 06/17/2022 Laterality: Left; Surgeon: Isreal Sigala MD; Location: [facility] OR GUIDANCE FLUOROSCOPIC NEEDLE OR CATHETER PLACEMENT FOR SPINE INJECTION ADD-ON PX Left 06/17/2022 Laterality: Left; Surgeon: Isreal Sigala MD; Location: [facility] OR EGD W/ DILATION BALLOON N/A 12/01/2021 Laterality: N/A; Surgeon: Indra Parrish DO; Location: [facility] SHOULDER ARTHROSCOPY Left 06/18/2021 REMOVAL CENTRAL VENOUS ACCESS DEVICE TUNNELED W/ PORT PUMP Left 09/13/2019 Laterality: Left; Surgeon: Eduadro Muñoz MD; Location: [facility] INTERVENTIONAL RADIOLOGY (VIR) EGD W/ DILATION BALLOON N/A 06/30/2018 Laterality: N/A; Surgeon: Indra Parrish DO; Location: [facility] EGD DIAGNOSTIC N/A 04/07/2018 Laterality: N/A; Surgeon: Wilner Leigh MD; Location: [facility] COLONOSCOPY DIAGNOSTIC N/A 04/07/2018 Laterality: N/A; Surgeon: Wilner Leigh MD; Location: [facility] KNEE REPLACEMENT Right 05/2015 done at [facility] ARTHROPLASTY KNEE TOTAL Right 04/2015 INSERTION PICC W/ PORT PUMP 2014 power port COLONOSCOPY DIAGNOSTIC 2006 SALPINGO-OOPHORECTOMY OPEN N/A 1983 APPENDECTOMY OPEN 1983 TONSILLECTOMY ADENOIDECTOMY 1968 EGD DIAGNOSTIC 10 months ago Social History Occupational History Employer: RETIRED Tobacco Use Smoking status: Former Packs/day: 0.75 Years: 35.00 Additional pack years: 0.00 Total pack years: 26.25 Types: Cigarettes Quit date: 04/23/2013 Years since quittin.2 Smokeless tobacco: Never Vaping Use Vaping Use: Never used Substance and Sexual Activity Alcohol use: Yes Alcohol/week: 2.0 standard drinks of alcohol Types: 2 Cans of beer per week Drug use: Never Sexual activity: Not Currently control/protection: Menopause ROS: Review of Systems Nurse Note: Review of Systems Constitutional: Negative for fatigue, fever and unexpected weight change. HENT: No difficulty swallowing No change in voice Respiratory: Negative for cough, shortness of breath and wheezing. Cardiovascular: Negative for chest pain, palpitations and leg swelling. Gastrointestinal: Negative for constipation, diarrhea, nausea and vomiting. Neurological: Negative for tremors, weakness and numbness. Psychiatric/Behavioral: Negative for sleep disturbance. The patient is not nervous/anxious. Nursing Assessment: Physical Exam Objective: Vitals: 07/08/23 0856 BP: (!) 193/93 Pulse: Temp: SpO2: Objective: Vascular: Dorsalis pedis and posterior tibial pulses are readilly palpable and graded at 2/4 bilateral. Dermatological: Left 4th toe with mild swelling and localized erythema. With pressure I am able to push out one drop of purulence from the plantar surface of the toe MRI FOOT LEFT WITHOUT CONTRAST Result Date: 05/10/2023 EXAM: MRI FOOT LEFT WITHOUT CONTRAST HISTORY: For stress swelling and abscess. Rule out osteomyelitis COMPARISON: None. TECHNIQUE: Multiplanar MRI of left foot was performed without contrast in sagittal, coronal and axial planes using T1, T2 and STIR pulsing sequences FINDINGS: Bony structures of left foot including visualized tarsal bones, metatarsals and phalanges demonstrate no evidence of fracture or contusion. No dislocation is seen. Small joint effusion is seen in the first metatarsophalangeal joint. Subtle marrow edema is suspected involving the fourth distal phalanx without bony destructive changes or abnormal T1 signal. No cortical disruption is seen to suggest osteomyelitis. The flexor and extensor tendons appear intact. Visualized plantar fascia appears intact. Collateral ligaments appear intact. Lisfranc ligament is visualized and appears intact. Evidence of superficial veindeep soft tissue edema involving fourth toe without focal collections. Muscles demonstrate normal signal. IMPRESSION: Soft tissue edema 4th distal phalanx without T1 abnormality or cortical disruption to suggest osteomyelitis. XR FOOT LEFT 3 VIEWS Result Date: 05/02/2023 EXAM: XR FOOT LEFT 3 VIEWS HISTORY: infection, redness, drainage of left 4th toe. COMPARISON: None available. FINDINGS: 3 views of the left foot were obtained. These were AP, oblique and lateral views weightbearing I do not specifically see any evidence of fracture or dislocation. There are no peria rticular calcifications, erosions or obvious signs of osteomyelitis. No soft tissue air is seen. The fourth digit appears prominently swollen IMPRESSION: 1. Prominent soft tissue swelling of the fourth digit of the left foot. 2. I do not seeany evidence of fracture, dislocation, advanced arthropathy or osteomyelitis. Assessment: Elena was seen today for ulcer, cellulitis and follow-up. Diagnoses and all orders for this visit: Cellulitis and abscess of toe of left foot - CBC,PLATELETS; Future - COMPREHENSIVE METABOLIC PANEL; Future - AMB REFERRAL TO INFECTIOUS DISEASE - MRI FOOT LEFT WITHOUT CONTRAST; Future acute complicated, limb threatening diagnosis Plan: Patient was seen and evaluated today MRI left foot- concern with OM of left 4th toe with recurrent purulence coming out of toe ID referral for IV antibiotics Consider HBO At risk for loss of digit Non-surgical/ alternative options were offered and discussed with the patient. I discussed the potential risks of not performing surgery as well. Elena Galeano has elected to proceed with surgery. she will have the following proposed procedures: 1. Left fourth toe deep Incision and drainage This included a discussion on the indications, potential complications, anticipated results and expected postoperative course. We discussed weight bearing status after this procedure. Elena Galeano will be full weight bearing after surgery The patient understands that if they are non-weight bearing after the surgery this means no weight on the foot and they will use one of the following: crutches, knee scooter or walker. All of the patient's questions were answered. No guarantees were given to outcome of this procedure. The patient understands that she will leave the bandage on until their 1st post operative appointment unless given specific instructions to remove it before then. Patient understands the material risks and dangers inherently and potentially involved with the proposed therapy. This includes, but is not limited to: over correction and under correction, prolongedpain and swelling, nerve damage, recurrence of deformity, wound and bone healing complications, scarring, numbness and infection . We also discussed the possibility of deep vein thrombosis and digit/ limb loss and even . We discussed the signs and symptoms of deep vein thrombosis and how this is an emergency if this happens. On the day of surgery the patient will have a compression hose put on the contralateral surgery limb to help decrease this chance. The patient will also start aspirin therapy after surgery if ap propriate. The patient has been asked to read the consent and I went over the written consent with the patient. The consent was signed and scanned into their chart. We will schedule the surgery at the patient's request. No contraindications noted at this time. Appropriate blood work will be ordered An appointment will be made with the patient's PCP. This is for a surgical optimization, history and physical and for surgical clearance/ risk stratification. The patient will undergo MAC anesthesia. I will prescribe the following pain medicine: norco. The patient understands that narcotics can be addictive and that they will only be prescribed for 3- 5 days for moderate to severe pain after surgery. Elena understands that the goal of pain medicine is to make the pain tolerable and not gone completely. After the first 24 hours they can lengthenthe time between pain medicine and switch to Tylenol. We also talked about how pain medicine can cause constipation and they will consider a stool softener while on narcotics. I will check an OARRS report on the patient. The patient will follow up in the office about 7 days after surgery and were encouraged to call theoffice if she had any questions before tor after surgery. High level decision making was required to formulate the assessment and plan along with medication management and review of appropriate labs and imaging. Please note that this visit and patient were complex due to the seriousness and/or number of active problems/diagnoses/medication(s) H&P above dated 06/28/23 copied and pasted from progress notes section to H&P section for interval update. [id number] History of Present illness Narrative* Rosalee Jackman - 07/04/2023 9:45 AM EDT Review of Systems A complete review of systems are negative except those consistent with HPI No fevers, chills or sweats No cough, chest pain No dysphagia, odynophagia No abdominal pain, nausea, vomiting, diarrhea No dysuria, frequency, hematuria No headache, dizziness, focal neurologic complaints No ear pain No sinus pain No rash No weight loss No joint or muscular pain Recent travel history? No * Monse Shipley MD - 07/04/2023 9:45 AM EDT HPI Elena Galeano 63 y.o. female presents today for New Patient (Cellulitis and abscess of toe of left foot) Patient states ID consult appointment in June of 2023 that she is longstanding history of for several months of a left toe infection. She denies any specific trauma or inciting event that started this all. Past medical history includes stroke, AFib, left eye blindness, CLL and diffuse non-Hodgkin's lymphoma history status post chemotherapy s/p 10 yrs ago, GERD, hyperlipidemia, hypertension, DMII per record, fatty liver disease, obstructive sleep apnea, obesity, anemia, history of COVID. 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 Blackwood. History of former tobacco use, not current. No significant alcohol use, occasional. No illicit abx. No animal bites/scratches, no trauma noted, no barefoot outdoor walking. No hx of gout Patient was seen by Podiatry 05/05/2023 due to ingrown toenail of the 4th left toe ongoing issues for about 3 months at that time per notes with 2 courses of Keflex given at that time. Podiatry diagnosed with a patient with concerns for abscess and cellulitis of the distal 4th toe on 05/05 and MRI was ordered but was negative on 05/10 for deeper infection at that time. Patient was treated with local mupirocin and antibiotic oral course of cefixime. Patient was then treated in the May timeframe with a course of Levaquin per Podiatry and then a course of doxycycline for 14 days new x-ray ordered showing soft tissue swelling on 06/14 without clear bony disease. Patient was then seen on 06/28by Podiatry and a repeat MRI was order due to concern for osteomyelitis of the 4th toe per Podiatryalthough radiology report was negative from 06/29. Hx significant for recurrent purulence reported and patient was referred at this visit to Infectious Disease for IV antibiotics as well as plans forsurgical debridement with an incision and drainage pending for 07/08 with consideration of hyperbaric treatment as well noted No known allergies to antibiotics noted ID consult visit 07/04/2023 Patient denies any fevers or chills. Does note some sweats. No systemic symptoms otherwise. Denies any significant left toe pain. She states that there is a pocket in her plantar area that she believes is collecting fluid and then she has intermittent drainage from this area. ROS Review of Systems A complete review of systems are negative except those consistent with HPI No fevers, chills or sweats No cough, chest pain No dysphagia, odynophagia No abdominal pain, nausea, vomiting, diarrhea No dysuria, frequency, hematuria No headache, dizziness, focal neurologic complaints No ear pain No sinus pain No rash No weight loss No joint or muscular pain Recent travel history? No HISTORY/ALLERGIES/MEDS Allergies Allergen Reactions Nsaids Has CKD-3a, and Anemia Past Medical History: Diagnosis Date A-fib Anemia low Fe Arrhythmia Arthritis ASCUS of cervix with negative high risk HPV Asthma not asthma B12 deficiency Carotid stenosis, bilateral-Right 30%, and left 60% Central retinal artery occlusion of left eye CKD (chronic kidney disease) stage 3, GFR 30-59 ml/min-3a patient denies CLL (chronic lymphocytic leukemia) 2011 [id number] on 09-30-2020 Depression Diffuse non-Hodgkin's lymphoma chemotherapy Folate deficiency GERD (gastroesophageal reflux disease) Gout pt denies Hiatal hernia pt denies Hyperglycemia Hyperlipidemia LDL goal <70 Hypertension Hyponatremia Liver disease fatty liver Non-Hodgkin lymphoma 2011 in remission PERCY (obstructive sleep apnea) PVC's (premature ventricular contractions) 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 (blindness) Past Surgical History: Procedure Laterality Date INJECTION NERVE OTHER PERIPHERAL Left 12/16/2022 Laterality: Left; Surgeon: Isreal Sigala MD; Location: [facility] OR GUIDANCE FLUOROSCOPIC NEEDLE OR CATHETER PLACEMENT FOR SPINE INJECTION ADD-ON PX Left 12/16/2022 Laterality: Left; Surgeon: Isreal Sigala MD; Location: [facility] OR SUSPENSION URETHRA/URETHROVESICAL FEMALE OPEN W/ SYNTHETIC MATERIAL (SLING) Midline 08/31/2022 Laterality: Midline; Surgeon: Dariusz Rangel MD; Location: [facility] OR CYSTOURETHROSCOPY W/ DILATION BLADDER Midline 08/31/2022 Laterality: Midline; Surgeon: Dariusz Rangel MD; Location: [facility] OR COLPORRHAPHY ANTEROPOSTERIOR REPAIR CYSTOCELE & RECTOCELE Midline 08/31/2022 Laterality: Midline; Surgeon: Dariusz Rangel MD; Location: [facility] OR ARTHRODESIS SACROILIAC JOINT MINIMALLY INVASIVE W/ TRANSFIXING DEVICE Left 06/17/2022 Laterality: Left; Surgeon: Isreal Sigala MD; Location: [facility] OR GUIDANCE FLUOROSCOPIC NEEDLE OR CATHETER PLACEMENT FOR SPINE INJECTION ADD-ON PX Left 06/17/2022 Laterality: Left; Surgeon: Isreal Sigala MD; Location: [facility] OR EGD W/ DILATION BALLOON N/A 12/01/2021 Laterality: N/A; Surgeon: Indra Parrish DO; Location: [facility] SHOULDER ARTHROSCOPY Left 06/18/2021 REMOVAL CENTRAL VENOUS ACCESS DEVICE TUNNELED W/ PORT PUMP Left 09/13/2019 Laterality: Left; Surgeon: Eduardo Muñoz MD; Location: [facility] RADI[facility] (VIR) EGD W/ DILATION BALLOON N/A 06/30/2018 Laterality: N/A; Surgeon: Indra Parrish DO; Location: [facility] EGD DIAGNOSTIC N/A 04/07/2018 Laterality: N/A; Surgeon: Wilner Leigh MD; Location: [facility] COLONOSCOPY DIAGNOSTIC N/A 04/07/2018 Laterality: N/A; Surgeon: Wilner Leigh MD; Location: [facility] KNEE REPLACEMENT Right 05/2015 done at [place]--CC ARTHROPLASTY KNEE TOTAL Right 04/2015 INSERTION PICC W/ PORT PUMP 2014 power port COLONOSCOPY DIAGNOSTIC 2007 SALPINGO-OOPHORECTOMY OPEN N/A 1984 APPENDECTOMY OPEN 1984 TONSILLECTOMY ADENOIDECTOMY 1968 EGD DIAGNOSTIC 10 months ago Social History Socioeconomic History Marital status: Spouse name: Not on file Number of children: Not on file Years of education: Not on file Highest education level: Not on file Occupational History Employer: RETIRED Tobacco Use Smoking status: Former Packs/day: 0.75 Years: 35.00 Additional pack years: 0.00 Total pack years: 26.25 Types: Cigarettes Quit date: 04/23/2013 Years since quittin.2 Smokeless tobacco: Never Vaping Use Vaping Use: Never used Substance and Sexual Activity Alcohol use: Yes Alcohol/week: 2.0 standard drinks of alcohol Types: 2 Cans of beer per week Drug use: Never Sexual activity: Not Currently control/protection: Menopause Other Topics Concern Service Not Asked Blood Transfusions Not Asked Caffeine Concern Not Asked Occupational Exposure Not Asked Hobby Hazards Not Asked Sleep Concern Not Asked Stress Concern Not Asked Weight Concern Not Asked Special Diet Not Asked Back Care Not Asked Exercise Not Asked Bike Helmet Not Asked Seat Belt Not Asked Domestic Violence No Social History Narrative Not on file Social Determinants of Health Financial Resource Strain: Not on file Food Insecurity: Not on file Transportation Needs: Not on file Physical Activity: Not on file Stress: Not on file Social Connections: Not on file Intimate Partner Violence: Not on file Housing Stability: Not on file Family History Problem Relation Age of Onset Hypertension Mother Lipid Disorder Mother Depression Mother Clotting Disorder Mother hx of DVT Dementia Father Arrhythmia Father A-Fib Anesth Problems Sister post-op n/v Breast Cancer Maternal Aunt Cancer- Other Maternal Uncle melanoma Ovarian Cancer Paternal Aunt Cancer Paternal Aunt brain Lung Cancer Maternal Grandfather Hypertension Son Lipid Disorder Daughter No known problems Daughter Autism Grandson Current Outpatient Medications: Albuterol (Ventolin HFA) 108 (90 Base) MCG/ACT Aero Soln inhaler, Inhale 2 puffs every 6 hours as needed for Wheezing., Disp: 18 g, Rfl: 0 Allopurinol 100 MG tablet, Take 1 tablet by mouth daily., Disp: 90 tablet, Rfl: 3 apixaban 2.5 MG tablet, 2.5 mg 2 tabs, BID- Lot # [id number] 08.15, Disp: 56 tablet, Rfl: 0 buPROPion (Wellbutrin XL) 300 MG tablet XL, Take 1 tablet by mouth every morning before breakfast.,Disp: 90 tablet, Rfl: 0 carveDILOL (Coreg) 12.5 MG tablet, Take 1 tablet by mouth 2 times daily with meals. Given by Dr. Calderon, Disp: , Rfl: Cetirizine 10 MG tablet, Take 1 tablet by mouth daily as needed for Allergies. OTC, Disp: , Rfl: Clindamycin Phos-Benzoyl Perox 1.2-3.75 % Gel, Apply 1 Application topically daily. Given by Dermatology Dr. Dejesus, Disp: , Rfl: Clopidogrel 75 MG tablet, Take 1 tablet by mouth daily., Disp: 90 tablet, Rfl: 3 cyanocobalamin 1000 MCG tablet, Take 1 tablet by mouth daily. Chew 1 tab q daily, Disp: 90 tablet, Rfl: 0 Evolocumab (Repatha SureClick) 140 MG/ML Solution Auto-injector injection, Inject 1 mL under the skin every 14 days. (Patient taking differently: Inject 1 mL under the skin every 14 days. Last dose 06/17/2023), Disp: 2 mL, Rfl: 11 fenofibrate 160 MG tablet, Take 1 tablet by mouth daily., Disp: 90 tablet, Rfl: 3 Folic acid 1 MG tablet, Take 1 tablet by mouth daily., Disp: 90 tablet, Rfl: 0 Lisinopril 5 MG tablet, Take 1 tablet by mouth daily. Cancel previous refills, Disp: 90 tablet, Rfl: 0 magnesium oxide 400 (240 Mg) MG, Take 1 tablet by mouth daily. OTC, Disp: , Rfl: Mupirocin 2 % ointment, Apply topical TID for 7 days, Disp: 30 g, Rfl: 0 Pantoprazole (Protonix) [address] tablet DR, Take 1 tablet by mouth 2 times daily (take before meals)., Disp: 180 tablet, Rfl: 0 traZODone 100 MG tablet, Take 1 tablet by mouth at bedtime., Disp: 90 tablet, Rfl: 0 triamterene-hydrochlorothiazide (Dyazide) 37.5-25 MG per capsule, Take 1 capsule by mouth daily. Cancel previous refills, Disp: 90 capsule, Rfl: 3 EXAM BP 124/78 (BP Location: Left arm, BP Position: Sitting) Pulse 63 Temp 97.1 F (36.2 C) (Temporal) Resp 15 Ht 1.651 m (5' 5) Wt 96.1 kg (211 lb 12.8 oz) SpO2 97% BMI 35.25 kg/m SmokingStatus Former Physical Exam Vitals and nursing note reviewed. Constitutional: General: She is not in acute distress. Appearance: Normal appearance. HENT: Head: Normocephalic and atraumatic. Mouth/Throat: Pharynx: Oropharynx is clear. No oropharyngeal exudate. Eyes: Extraocular Movements: Extraocular movements intact. Conjunctiva/sclera: Conjunctivae normal. Pupils: Pupils are equal, round, and reactive to light. Cardiovascular: Rate and Rhythm: Normal rate and regular rhythm. Pulses: Normal pulses. Heart sounds: Normal heart sounds. No murmur heard. Pulmonary: Effort: Pulmonary effort is normal. No respiratory distress. Breath sounds: Normal breath sounds. No rhonchi or rales. Abdominal: General: Bowel sounds are normal. There is no distension. Palpations: Abdomen is soft. Tenderness: There is no abdominal tenderness. There is no guarding. Genitourinary: Comments: No CVA or suprapubic tenderness Musculoskeletal: General: No swelling or tenderness. Normal range of motion. Cervical back: Normal range of motion and neck supple. No rigidity. Comments: Left 4th toe with mild erythema and mild swelling, area of wound that is closed currentlywith no drainage. No significant tenderness. No tracking cellulitis. Skin: General: Skin is warm and dry. Findings: No rash. Neurological: General: No focal deficit present. Mental Status: She is alert. Psychiatric: Mood and Affect: Mood normal. Behavior: Behavior normal. Thought Content: Thought content normal. LABS CBC Lab Results Component Value Date WBC 6.6 06/29/2023 HGB 13.2 06/29/2023 HCT 39.1 06/29/2023 PLATELET 218 06/29/2023 MCV 97.4 06/29/2023 EDIF Lab Results Component Value Date RBCDISTRIBU 14.0 06/29/2023 GRNLOCYT 43.5 09/29/2022 LYMPHOCYT 45.1 09/29/2022 MONOCYTELEC 9.2 09/29/2022 EOSINOPHILS 1.2 04/21/2023 EOSINOPHILS 0.1 04/21/2023 BASOPHILS 0.6 04/21/2023 BASOPHILS 0.0 04/21/2023 GRNLOCTYABS 3.0 11/03/2016 LYMPHOCYTABS 1.8 04/21/2023 MONOSABSOLU 0.5 11/03/2016 EOSINOPHLABS 0.09 09/29/2022 BASOPHILSABS 0.1 11/03/2016 PLATELET 218 06/29/2023 MPV 8.5 06/29/2023 EDIF Lab Results Component Value Date RBCDISTRIBU 14.0 06/29/2023 GRNLOCYT 43.5 09/29/2022 LYMPHOCYT 45.1 09/29/2022 MONOCYTELEC 9.2 09/29/2022 EOSINOPHILS 1.2 04/21/2023 EOSINOPHILS 0.1 04/21/2023 BASOPHILS 0.6 04/21/2023 BASOPHILS 0.0 04/21/2023 GRNLOCTYABS 3.0 11/03/2016 LYMPHOCYTABS 1.8 04/21/2023 MONOSABSOLU 0.5 11/03/2016 EOSINOPHLABS 0.09 09/29/2022 BASOPHILSABS 0.1 11/03/2016 PLATELET 218 06/29/2023 MPV 8.5 06/29/2023 ESR Lab Results Component Value Date RBCDISTRIBU 14.0 06/29/2023 GRNLOCYT 43.5 09/29/2022 LYMPHOCYT 45.1 09/29/2022 MONOCYTELEC 9.2 09/29/2022 EOSINOPHILS 1.2 04/21/2023 EOSINOPHILS 0.1 04/21/2023 BASOPHILS 0.6 04/21/2023 BASOPHILS 0.0 04/21/2023 GRNLOCTYABS 3.0 11/03/2016 LYMPHOCYTABS 1.8 04/21/2023 MONOSABSOLU 0.5 11/03/2016 EOSINOPHLABS 0.09 09/29/2022 BASOPHILSABS 0.1 11/03/2016 PLATELET 218 06/29/2023 MPV 8.5 06/29/2023 Lab Results Component Value Date SODIUM 133 (L) 06/29/2023 POTASSIUM 4.3 06/29/2023 CHLORIDE 100 06/29/2023 CO2 25 06/29/2023 BUN 16 06/29/2023 CREATSERUM 0.82 06/29/2023 GLUCOSE 123 (H) 06/29/2023 No results found for: CRP Lab Results Component Value Date RESULTCULT STAPHYLOCOCCUS EPIDERMIDIS 05/17/2023 . Lab Results Component Value Date GLUCOSE 123 (H) 06/29/2023 . Lab Results Component Value Date CALCIUM 9.5 06/29/2023 Lab Results Component Value Date ALBUMIN 4.1 06/29/2023 Lab Results Component Value Date BILITOTAL 0.9 06/29/2023 Lab Results Component Value Date BUN 16 06/29/2023 Lab Results Component Value Date CREATSERUM 0.82 06/29/2023 CREATURINE 22.6 04/21/2023 Lab Results Component Value Date SODIUM 133 (L) 06/29/2023 POTASSIUM 4.3 06/29/2023 CHLORIDE 100 06/29/2023 CO2 25 06/29/2023 Lab Results Component Value Date ALKPHOS 51 06/29/2023 Lab Results Component Value Date HEPATITISB Negative 04/14/2018 Lab Results Component Value Date ALT 36 (H) 06/29/2023 AST 52 (H) 06/29/2023 ALKPHOS 51 06/29/2023 BILITOTAL 0.9 06/29/2023 BILIDIRECT 0.1 10/22/2015 No orders to display IMAGING MRI FOOT LEFT WITHOUT CONTRAST Result Date: 06/29/2023 EXAM: MRI FOOT LEFT WITHOUT CONTRAST COMPARISON: Left foot x-rays from 06/14/2023 and left foot MRI from 05/10/2023. HISTORY: Infection in the fourth toe. Evaluate for osteomyelitis. TECHNIQUE: Multiplanar and multisequence imaging of the left foot was performed without contrast. FINDINGS: Motion artifact degrades evaluation on this study. There is mild soft tissue swelling involving the fourth toewith mild subcutaneous edema. Correlation for clinical findings of cellulitis would be helpful. There is no well-defined abscess. There is no MRI evidence of osteomyelitis. There is no low T1 signal or bony destruction in the phalanges of the fourth toe. No fracture or dislocation is evident. Thereis no metatarsal stress fracture. The tarsometatarsal alignment is anatomic. There is mild joint space narrowing and spurring involving the first metatarsophalangeal joint. Flexor and extensor tendons and the midfoot and forefoot appear intact with no focal tendon tear. There is no focal tenosynovitis. No muscle edema is identified. IMPRESSION: 1. There is mild subcutaneous edema and soft tissue swelling of the fourth toe suspicious for cellulitis. 2. No MRI evidence of osteomyelitis. 3. No focal abscess. 4. No acute or healing fracture in the foot. MRI SPINE LUMBAR WITHOUT CONTRAST Result Date: 06/20/2023 TITLE: MRI SPINE LUMBAR WITHOUT CONTRAST COMPARISON: 2021 lumbar spine MRI CLINICAL HISTORY: Low back pain radiating to the sacroiliac joints TECHNIQUE: Sagittal T1, sagittal T2 FSE, sagittal STIR, and axial T2 FSE. FINDINGS: Alignment is normal. There is no listhesis nor vertebral body height loss. The conus medullaris terminates at L1-2 and appears normal. The visualized adjacent soft suggest asmall right renal cyst. Prominent dorsal epidural fat L1-L5.. New metallic hardware traversing the left sacroiliac joint. T12-L1: Normal disc space. No stenosis L1-L2:Mild disc bulge. No significant stenosis. L2-3: Diffuse disc bulge. Left foraminal extension. Bilateral facet hypertrophy. Mild central canal and moderate left-sided foraminal narrowing L3-4: Mild disc bulge. Mild tear in left lateral annulus. Bilateral facet hypertrophy. Mild to moderate central canal and left-sided foraminal narrowing L4-5: Disc space narrowing lateral disc and osteophyte formation. Central disc protrusion. Facet hypertrophy and prominent dorsal epidural fat. This results in moderate to severe central canal and moderate foraminal narrowing L5-S1: Mild disc bulge. Bilateral facet hypertrophy. There is no significant central canal and [id number] left-sided foraminal narrowing IMPRESSION: MODERATE MULTILEVEL DEGENERATIVE CHANGES OF THE LUMBAR SPINE PROMINENT DORSAL EPIDURAL FAT L1-L5 L2-3: DIFFUSE DISC BULGE WITH LEFT FORAMINAL DISC PROTRUSION SMALL ANNULAR TEAR L3-4 MODERATE TO SEVERE MULTIFACTORIAL CENTRAL STENOSIS L4-5 FACET HYPERTROPHY LOWER 2 LUMBAR LEVELS XR FOOT LEFT 3 VIEWS Result Date: 06/14/2023 EXAM: XR FOOT LEFT 3 VIEWS HISTORY: left 4th toe infection COMPARISON: 05/02/2023. FINDINGS: 3 weightbearing views were submitted. Again the fourth toe appears swollen. Fracture, opaque foreign body or bony erosion not identified. Spurs present plantar and posterior calcaneus. IMPRESSION: 1. Again there is soft tissue swelling fourth toe, osseous abnormality not identified. 2. Calcaneal spurs. XR SPINE LUMBAR W BENDING Result Date: 06/07/2023 EXAM: XR SPINE LUMBAR W BENDING HISTORY: Spondylosis of lumbar region without myelopathy or radiculopathy COMPARISON: None. TECHNIQUE: 5 views with flexion and extension Findings/impression: Satisfactory alignment. Maintained vertebral body heights. Multilevel disc disease and facet arthropathy of L3-S1. Intact hardware. No acute fracture or subluxation. Left-sided sacroiliac fixation. Intact hardware. Diagnosis/Plan: There are no diagnoses linked to this encounter. Complex left 4th toe infection -MRI 05/11 and 06/29 does not show clear osteomyelitis but does have soft tissue swelling -culture from 4th toe 05/17 with Staphylococcus epidermidis for thigh overgrowth only likely a contaminant; 05/05 negative; 05/02 with finegoldia -history of MRSA nares 04/21 negative -Keflex x 2, cefixime levaquin and doxycycline course without clearance per history -concern for a deep-seated infection that is not being resolved with short courses of oral therapy -patient will be having a operative procedure for evaluation on Tuesday and would recommend holding antibiotics for which he has been off of for a week already pending deep operative specimens. If thepatient would develop fevers or signs of worsening infection, I should be contacted for immediate start of antibiotics. -discussed with her that if there is a deep-seated infection she may need IV antibiotics and that these will be arranged for post surgery. -there is no inciting trauma or events preceding this infection that the patient recalls including no bite injuries, soil, pedicures or other inciting events to suggest unusual organisms but this remains in the differential -recommend calling if there is any concern for deep-seated infection at operative evaluation, otherwise we will see the patient the following week in clinic to review the findings. -recommend sending operative specimens for bacterial aerobic and anaerobic, fungal and afb cultures. DM -patient denies a history of diabetes but this is in her record and states that she is not currently on any management. Previous BMP shows mildly elevated glucose. Healthcare maintenance -history of prior flu shots, would recommend flu shot this fall -history of pneumococcal conjugate and polysaccharide vaccines -history of tetanus vaccine 2018 -recommend keeping up-to-date on all recommended vaccines Left knee degenerative disease -operative management by Orthopedics is on hold pending resolution of toe infection Await operative findings as well as operative cultures. If there is indicators that the patient hasa deep-seated infection, we will need further antibiotics and this was explained to her and her and all questions answered. Also discussed the potential need for IV antibiotics. Patient's call if there is any worsening signs of infection or systemic illness including fevers. Return to clinic in 1 week 45 Min of care Please note Portions of this note utilized [employer] dictation software, please excuse any typographical or grammatical errors. documented in this [facility] [place]09-08-[facility]23 History of Present illness Narrative* Tom Srivastava, KESHIA - 07/01/2023 3:29 PM EDT DENTISTRY AND MAXILLOFACIAL PROSTHETICS 07/01/2023 Elena Galeano SUBJECTIVE: This 63 year old female presents to begin fabrication of her oral mandibular advancement device. Wehave reviewed the risks, benefits, alternatives, and personnel involved with treatment. She demonstrates understanding and wishes to proceed. Medical history:reviewed, no change.. OBJECTIVE: Maxillary and mandibular PVS impressions taken. Protrusive bite registration made at 50% at on the [employer] [place] bite registration ASSESSMENT/PLAN: The patient has tolerated today's appointment well and will return for insertion of the appliance. Rx for DAVID PH appliance [facility]. Tom Srivastava DMD [facility] History of Present illness Narrative* Fernie Paredes, - 06/29/2023 11:30 AM EDT History of Present Illness HISTORY OF PRESENT ILLNESS: 63 y.o. female presents with complaints of: Encounter Diagnoses Name Primary? Type 2 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 disease, without long-term current use of insulin Yes Hyperlipidemia LDL goal <70 Hyponatremia Idiopathic chronic gout without tophus, unspecified site B12 deficiency Hypertriglyceridemia Folate deficiency Chronic gastritis without bleeding, unspecified gastritis type Esophageal stenosis Hypoproteinemia Hypomagnesemia Paroxysmal atrial fibrillation Essential hypertension Internal and external hemorrhoids without complication Bradycardia Cerebrovascular accident (CVA), unspecified mechanism Central retinal artery occlusion of left eye Ischemic stroke Bilateral carotid artery stenosis-30% Right, 60% Left Hypertensive heart disease without heart failure Vitamin D deficiency Gastroesophageal reflux disease without esophagitis Fatty liver Duodenal diverticulum Hepatomegaly Esophagitis, Clyo grade A Pulmonary emphysema, unspecified emphysema type Chronic obstructive pulmonary disease, unspecified COPD type PVC's (premature ventricular contractions) PERCY on CPAP-Off BiPAP due to intolerance Hiatal hernia Moderate persistent asthma without complication Non-seasonal allergic rhinitis, unspecified trigger Chronic sinusitis, unspecified location Chronic midline low back pain without sciatica Lacunar infarction PCO (posterior capsular opacification), left Primary osteoarthritis of both knees Spondylosis of lumbar region without myelopathy or radiculopathy Other idiopathic scoliosis, lumbar region Spinal stenosis of lumbar region without neurogenic claudication Primary osteoarthritis of both hips-Mild HNP (herniated nucleus pulposus), lumbar-Multi level Anemia, unspecified type Open wound of fourth toe of left foot, sequela Spondylosis of cervical region without myelopathy or radiculopathy Hypermetropia of left eye Allergic conjunctivitis of both eyes Combined forms of age-related cataract, bilateral Regular astigmatism of left eye Pinguecula of both eyes Blepharitis of upper eyelids of both eyes, unspecified type Unspecified amblyopia, right eye Stage 3a chronic kidney disease Left renal stone Mixed stress and urge incontinence Renal cyst, right Seborrheic keratosis, inflamed-Left thigh-S/P Excision [id number] on 09-30-2020 CLL (chronic lymphocytic leukemia) Macrocytosis Elevated LFTs Former smoker-Quit 2011 Anxiety and depression Insomnia, unspecified type Obesity (BMI 30.0-34.9) Fatty food intolerance Low HDL (under 40) S/P total knee arthroplasty, right History of anemia S/P unilateral salpingo-oophorectomy Bilateral dry eyes Irregular astigmatism of right eye Fatigue, unspecified type ASCUS of cervix with negative high risk HPV Myopia of right eye History of ETOH abuse Presbyopia History of cataract extraction, unspecified laterality Osteopenia determined by x-ray Vision loss of left eye Chronic anticoagulation Pseudophakia of both eyes Family history of Alzheimer's disease Type 2 DM, CKD-3a, CLL/Anemia, HTN and A. Fib. Needs Pre-op clearance for surgery to left 4th toe on with Dr. Uriarte to debride open wound of left 4th toe bottom. Non Smoker, former. Sues little ETOH. Uses little caffeine. BP up some and is consistently WNL at home. +Occasional blurred vision.No C.P., SOB, Edema, Palpitations, Dizziness, Fatigue, GERD, Melena, Hematochezia, Dysuria, or Frequency. All others negative on ROS. Recent CBC is WNL. CMP from today is pending. Recent EKG done showed PAC's. Review of Systems Constitutional: Negative for fatigue and unexpected weight change. Eyes: Positive for visual disturbance (occasionally). Respiratory: Negative for shortness of breath. Cardiovascular: Negative for chest pain, palpitations and leg swelling. Gastrointestinal: Negative for abdominal pain and blood in stool. No GERD Genitourinary: Negative for dysuria and frequency. Musculoskeletal: Negative for arthralgias. Skin: Positive for wound (left dorsal 4th toe). Neurological: Negative for dizziness, weakness and numbness. Psychiatric/Behavioral: Negative for dysphoric mood and sleep disturbance. The patient is not nervous/anxious. All other systems reviewed and are negative. Vitals: Blood pressure 145/67, pulse 58, temperature 97.5 F (36.4 C), temperature source Temporal, resp. rate 18, height 1.651 m (5' 5), weight 95.9 kg (211 lb 6.4 oz), SpO2 95 %, not currently . Physical Exam Vitals and nursing note reviewed. Constitutional: General: She is not in acute distress. Appearance: Normal appearance. She is obese. She is not ill-appearing. HENT: Head: Normocephalic and atraumatic. Nose: No congestion. Eyes: General: No scleral icterus. Right eye: No discharge. Left eye: No discharge. Extraocular Movements: Extraocular movements intact. Conjunctiva/sclera: Conjunctivae normal. Pupils: Pupils are equal, round, and reactive to light. Pulmonary: Effort: Pulmonary effort is normal. Breath sounds: No wheezing or rhonchi. Abdominal: General: Abdomen is flat. Bowel sounds are normal. There is no distension. Tenderness: There is no abdominal tenderness. Musculoskeletal: General: Normal range of motion. Cervical back: Normal range of motion and neck supple. No rigidity. No muscular tenderness. Right lower leg: No edema. Left lower leg: No edema. Skin: Coloration: Skin is not jaundiced. Findings: No bruising, erythema or rash. Comments: 2 mm open wound dorsal left 4th toe, without erythema. + exudate Neurological: General: No focal deficit present. Mental Status: She is alert and oriented to person, place, and time. Mental status is at baseline. Psychiatric: Mood and Affect: Mood normal. Behavior: Behavior normal. Thought Content: Thought content normal. Judgment: Judgment normal. Neurological Exam Mental Status Alert. Oriented to person, place, and time. Cranial Nerves CN III, IV, : Extraocular movements intact bilaterally. Pupils equal round and reactive to light bilaterally. Assessment and Plan Continue all meds, and hold Plavix for 5 days prior to surgery, and hold Eliquis 3 days prior to surgery. We will call Dr. Calderon to get the patient seen by him for Pre-op clearance as well, prior to surgery on 07-08-[address] Uriarte. Pre-op clearance given from a medical standpoint for the planned surgery on 07-08-[address] Uriarte, pending clearance also from Dr. Calderon. Check MRI Left foot on 06-30-[address] Uriarte, to R/O osteomyelitis. COVID-19 and Shingrix vaccines declined.Risks discussed. Eval on 07-06-[address] Philip at [facility]. [place] 08-08-23 with me, as prior scheduled, and also with Dr. Ciro Lyles, sooner prn. Alaina 08-29-[address] Calderon. Alaina 09-26-[address] Garry Stephens. Alaina 09-28-[address] Naty Bhakta at [facility] and get HD Flu with her. Alaina 10-26-[address] Davison. [place]a all labs, UA, Vit D, A1C, UA CR, Mg, PTH, Fe, B12 and Folate on 07-29-23 [place] 3-D Mammogram in . [place] pelvic and breast exam in with 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 NP. [place]a with Dr. Warren at [facility]. [place] PAP in with 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 NP [place] DEXA in . [place] Colon in . Total time spent 33 minutes, excluding tests and procedures. Diet and lifestyle counseling was given, and care coordinated. OARRS report wasreceived and assessed, and is consistent with the medications prescribed.Thank you for choosing Dr.Harold Paredes s Office at [facility] for your healthcare needs.The patients' entire past medical, surgical, family, social history, allergies, medications, recent labs, recent imaging and [employer] consultant letters were reviewed and updated. ASSESSMENT & PLAN: Encounter Diagnoses Name Primary? Type 2 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 disease, without long-term current use of insulin Yes Hyperlipidemia LDL goal <70 Hyponatremia Idiopathic chronic gout without tophus, unspecified site B12 deficiency Hypertriglyceridemia Folate deficiency Chronic gastritis without bleeding, unspecified gastritis type Esophageal stenosis Hypoproteinemia Hypomagnesemia Paroxysmal atrial fibrillation Essential hypertension Internal and external hemorrhoids without complication Bradycardia Cerebrovascular accident (CVA), unspecified mechanism Central retinal artery occlusion of left eye Ischemic stroke Bilateral carotid artery stenosis-30% Right, 60% Left Hypertensive heart disease without heart failure Vitamin D deficiency Gastroesophageal reflux disease without esophagitis Fatty liver Duodenal diverticulum Hepatomegaly Esophagitis, Clyo grade A Pulmonary emphysema, unspecified emphysema type Chronic obstructive pulmonary disease, unspecified COPD type PVC's (premature ventricular contractions) PERCY on CPAP-Off BiPAP due to intolerance Hiatal hernia Moderate persistent asthma without complication Non-seasonal allergic rhinitis, unspecified trigger Chronic sinusitis, unspecified location Chronic midline low back pain without sciatica Lacunar infarction PCO (posterior capsular opacification), left Primary osteoarthritis of both knees Spondylosis of lumbar region without myelopathy or radiculopathy Other idiopathic scoliosis, lumbar region Spinal stenosis of lumbar region without neurogenic claudication Primary osteoarthritis of both hips-Mild HNP (herniated nucleus pulposus), lumbar-Multi level Anemia, unspecified type Open wound of fourth toe of left foot, sequela Spondylosis of cervical region without myelopathy or radiculopathy Hypermetropia of left eye Allergic conjunctivitis of both eyes Combined forms of age-related cataract, bilateral Regular astigmatism of left eye Pinguecula of both eyes Blepharitis of upper eyelids of both eyes, unspecified type Unspecified amblyopia, right eye Stage 3a chronic kidney disease Left renal stone Mixed stress and urge incontinence Renal cyst, right Seborrheic keratosis, inflamed-Left thigh-S/P Excision [id number] on 09-30-2020 CLL (chronic lymphocytic leukemia) Macrocytosis Elevated LFTs Former smoker-Quit 2011 Anxiety and depression Insomnia, unspecified type Obesity (BMI 30.0-34.9) Fatty food intolerance Low HDL (under 40) S/P total knee arthroplasty, right History of anemia S/P unilateral salpingo-oophorectomy Bilateral dry eyes Irregular astigmatism of right eye Fatigue, unspecified type ASCUS of cervix with negative high risk HPV Myopia of right eye History of ETOH abuse Presbyopia History of cataract extraction, unspecified laterality Osteopenia determined by x-ray Vision loss of left eye Chronic anticoagulation Pseudophakia of both eyes Family history of Alzheimer's disease No orders of the defined types were placed in this encounter. Medications Discontinued During This Encounter Medication Reason apixaban 5 MG tablet Current Outpatient Medications Medication Sig Dispense Refill Albuterol (Ventolin HFA) 108 (90 Base) MCG/ACT Aero Soln inhaler Inhale 2 puffs every 6 hours as needed for Wheezing. 18 g 0 Allopurinol 100 MG tablet Take 1 tablet by mouth daily. 90 tablet 3 apixaban 2.5 MG tablet 2.5 mg 2 tabs, BID- Lot # [id number] 08.15 56 tablet 0 buPROPion (Wellbutrin XL) 300 MG tablet XL Take 1 tablet by mouth every morning before breakfast. 90 tablet 0 carveDILOL (Coreg) 12.5 MG tablet Take 1 tablet by mouth 2 times daily with meals. Given by Dr. Calderon Cetirizine 10 MG tablet Take 1 tablet by mouth daily as needed for Allergies. OTC Clindamycin Phos-Benzoyl Perox 1.2-3.75 % Gel Apply 1 Application topically daily. Given by Dermatology Dr. Dejesus Clopidogrel 75 MG tablet Take 1 tablet by mouth daily. 90 tablet 3 cyanocobalamin 1000 MCG tablet Take 1 tablet by mouth daily. Chew 1 tab q daily 90 tablet 0 Evolocumab (Repatha SureClick) 140 MG/ML Solution Auto-injector injection Inject 1 mL under the skin every 14 days. (Patient taking differently: Inject 1 mL under the skin every 14 days. Last dose 06/17/2023) 2 mL 11 fenofibrate 160 MG tablet Take 1 tablet by mouth daily. 90 tablet 3 Folic acid 1 MG tablet Take 1 tablet by mouth daily. 90 tablet 0 Lisinopril 5 MG tablet Take 1 tablet by mouth daily. Cancel previous refills 90 tablet 0 magnesium oxide 400 (240 Mg) MG Take 1 tablet by mouth daily. OTC Mupirocin 2 % ointment Apply topical TID for 7 days 30 g 0 Pantoprazole (Protonix) [address] brian ALLISON Take 1 tablet by mouth 2 times daily (take before meals). 180 tablet 0 traZODone 100 MG tablet Take 1 tablet by mouth at bedtime. 90 tablet 0 triamterene-hydrochlorothiazide (Dyazide) 37.5-25 MG per capsule Take 1 capsule by mouth daily. Cancel previous refills 90 capsule 3 No current facility-administered medications for this visit. Counseling given: No Follow up appointment(s) have been discussed with the patient. The patient is given an After Visit Summary sheet that lists all of their medications with directions, their allergies, orders placed during this encounter, immunization dates, and follow- up instructions. Fernie Paredes DO [address] [id number] This note is electronically signed in the electronic medical record. [facility] Instructions* Patient Instructions* Fernie Paredes DO - 06/29/2023 11:30 AM EDT Do fasting, well hydrated labs on approx 07-29-23 [facility] Evaluation note* Diagnosis Type 2 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 disease, without long-term current use of insulin- Primary Hyperlipidemia LDL goal <70 Other and unspecified hyperlipidemia Hyponatremia Hyposmolality and/or hyponatremia Idiopathic chronic gout without tophus, unspecified site B12 deficiency Other B-complex deficiencies Hypertriglyceridemia Pure hyperglyceridemia Folate deficiency Other B-complex deficiencies Chronic gastritis without bleeding, unspecified gastritis type Esophageal stenosis Stricture and stenosis of esophagus Hypoproteinemia Other disorders of plasma protein metabolism Hypomagnesemia Disorders of magnesium metabolism Paroxysmal atrial fibrillation Atrial fibrillation Essential hypertension Unspecified essential hypertension Internal and external hemorrhoids without complication Internal hemorrhoids without mention of complication Bradycardia Other specified cardiac dysrhythmias Cerebrovascular accident (CVA), unspecified mechanism Central retinal artery occlusion of left eye Central artery occlusion of retina Ischemic stroke Bilateral carotid artery stenosis-30% Right, 60% Left Occlusion and stenosis of multiple and bilateral precerebral arteries without mention of cerebral infarction Hypertensive heart disease without heart failure Unspecified hypertensive heart disease without heart failure Vitamin D deficiency Unspecified vitamin D deficiency Gastroesophageal reflux disease without esophagitis Esophageal reflux Fatty liver Other chronic nonalcoholic liver disease Duodenal diverticulum Diverticulosis of small intestine (without mention of hemorrhage) Hepatomegaly Esophagitis, Clyo grade A Pulmonary emphysema, unspecified emphysema type Chronic obstructive pulmonary disease, unspecified COPD type PVC's (premature ventricular contractions) Other premature beats PERCY on CPAP-Off BiPAP due to intolerance Obstructive sleep apnea (adult) (pediatric) Hiatal hernia Diaphragmatic hernia without mention of obstruction or gangrene Moderate persistent asthma without complication Unspecified asthma Non-seasonal allergic rhinitis, unspecified trigger Chronic sinusitis, unspecified location Chronic midline low back pain without sciatica Lacunar infarction Unspecified cerebral artery occlusion with cerebral infarction PCO (posterior capsular opacification), left After-cataract, unspecified Primary osteoarthritis of both knees Primary localized osteoarthrosis, lower leg Spondylosis of lumbar region without myelopathy or radiculopathy Lumbosacral spondylosis without myelopathy Other idiopathic scoliosis, lumbar region Spinal stenosis of lumbar region without neurogenic claudication Spinal stenosis, lumbar region, without neurogenic claudication Primary osteoarthritis of both hips-Mild Primary localized osteoarthrosis, pelvic region and thigh HNP (herniated nucleus pulposus), lumbar-Multi level Displacement of lumbar intervertebral disc without myelopathy Anemia, unspecified type Open wound of fourth toe of left foot, sequela Spondylosis of cervical region without myelopathy or radiculopathy Cervical spondylosis without myelopathy Hypermetropia of left eye Hypermetropia Allergic conjunctivitis of both eyes Other chronic allergic conjunctivitis Combined forms of age-related cataract, bilateral Regular astigmatism of left eye Regular astigmatism Pinguecula of both eyes Pinguecula Blepharitis of upper eyelids of both eyes, unspecified type Unspecified amblyopia, right eye Stage 3a chronic kidney disease Left renal stone Mixed stress and urge incontinence Renal cyst, right Unspecified congenital cystic kidney disease Seborrheic keratosis, inflamed-Left thigh-S/P Excision Inflamed seborrheic keratosis [id number] on 09-30-2020 CLL (chronic lymphocytic leukemia) Chronic lymphoid leukemia, without mention of having achieved remission Macrocytosis Other specified diseases of blood and blood-forming organs Elevated LFTs Other abnormal blood chemistry Former smoker-Quit 2011 Personal history of tobacco use, presenting hazards to health Anxiety and depression Dysthymic disorder Insomnia, unspecified type Obesity (BMI 30.0-34.9) Obesity, unspecified Fatty food intolerance Other specified intestinal malabsorption Low HDL (under 40) Lipoprotein deficiencies S/P total knee arthroplasty, right History of anemia Personal history of diseases of blood and blood-forming organs S/P unilateral salpingo-oophorectomy Acquired absence of organ, genital organs Bilateral dry eyes Tear film insufficiency, unspecified Irregular astigmatism of right eye Irregular astigmatism Fatigue, unspecified type ASCUS of cervix with negative high risk HPV Myopia of right eye Myopia History of ETOH abuse Nondependent alcohol abuse, in remission Presbyopia History of cataract extraction, unspecified laterality Osteopenia determined by x-ray Vision loss of left eye Unqualified visual loss, one eye Chronic anticoagulation Encounter for long-term (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 of anticoagulants Pseudophakia of both eyes Lens replaced by other means Family history of Alzheimer's disease Family history of other condition PAC (premature atrial contraction) Supraventricular premature beats Abscess of fourth toe of left foot Cellulitis and abscess of toe, unspecified Cellulitis of fourth toe, left Cellulitis and abscess of toe, unspecified documented in this encounter [facility] History of Present illness Narrative* Colleen Oreilly - 06/28/2023 2:00 PM EDT Nurse Note: Review of Systems Constitutional: Negative for fatigue, fever and unexpected weight change. HENT: No difficulty swallowing No change in voice Respiratory: Negative for cough, shortness of breath and wheezing. Cardiovascular: Negative for chest pain, palpitations and leg swelling. Gastrointestinal: Negative for constipation, diarrhea, nausea and vomiting. Neurological: Negative for tremors, weakness and numbness. Psychiatric/Behavioral: Negative for sleep disturbance. The patient is not nervous/anxious. Nursing Assessment: Physical Exam * Dawn Uriarte DPM - 06/28/2023 2:00 PM EDT Patient Elena Galeano Date: 06/28/2023 Chief Complaint: Elena Galeano is a 63 y.o. year old female who presents today with a complaintof an ulcer to the left 4th toe Subjective: Elena states that the toe will build put pressure and then she can squeeze out a dropof pus from the left 4th toe. She was just on two weeks of doxy History that the toe is improving, but something is happening on the underside of the toe. History of the left 4th toe. She notes that she is on her 2nd round of keflex. She has had an xray a few days ago and some purulence drained from the toe a few days ago. A culture is pending. She notes that the toe has been bad for 3-4 months, but she really has had problems on and off for about a month. She does not remember any kind of trauma. Allergies Allergen Reactions Nsaids Has CKD-3a, and Anemia Current Outpatient Medications Medication Sig Albuterol (Ventolin HFA) 108 (90 Base) MCG/ACT Aero Soln inhaler Inhale 2 puffs every 6 hours as needed for Wheezing. Allopurinol 100 MG tablet Take 1 tablet by mouth daily. apixaban 2.5 MG tablet 2.5 mg 2 tabs, BID- Lot # [id number] - 08.15 apixaban 5 MG tablet Take 1 tablet by mouth every 12 hours. buPROPion (Wellbutrin XL) 300 MG tablet XL Take 1 tablet by mouth every morning before breakfast. carveDILOL (Coreg) 12.5 MG tablet Take 1 tablet by mouth 2 times daily with meals. Given by Dr. Calderon Cetirizine 10 MG tablet Take 1 tablet by mouth daily as needed for Allergies. OTC Clindamycin Phos-Benzoyl Perox 1.2-3.75 % Gel Apply 1 Application topically daily. Given by Dermatology Dr. Dejesus Clopidogrel 75 MG tablet Take 1 tablet by mouth daily. cyanocobalamin 1000 MCG tablet Take 1 tablet by mouth daily. Chew 1 tab q daily doxycycline hyclate 100 MG capsule Take 1 capsule by mouth daily for 14 days. Evolocumab (Repatha SureClick) 140 MG/ML Solution Auto-injector injection Inject 1 mL under the skin every 14 days. fenofibrate 160 MG tablet Take 1 tablet by mouth daily. Folic acid 1 MG tablet Take 1 tablet by mouth daily. Lisinopril 5 MG tablet Take 1 tablet by mouth daily. Cancel previous refills magnesium oxide 400 (240 Mg) MG Take 1 tablet by mouth daily. OTC Mupirocin 2 % ointment Apply topical TID for 7 days Pantoprazole (Protonix) [address] brian ALLISON Take 1 tablet by mouth 2 times daily (take before meals). traZODone 100 MG tablet Take 1 tablet by mouth at bedtime. triamterene-hydrochlorothiazide (Dyazide) 37.5-25 MG per capsule Take 1 capsule by mouth daily. Cancel previous refills Past Medical History: Diagnosis Date A-fib Anemia low Fe Arrhythmia Arthritis ASCUS of cervix with negative high risk HPV Asthma B12 deficiency Carotid stenosis, bilateral-Right 30%, and left 60% Central retinal artery occlusion of left eye CKD (chronic kidney disease) stage 3, GFR 30-59 ml/min-3a CLL (chronic lymphocytic leukemia) 2011 [id number] on 09-30-2020 Depression Diffuse non-Hodgkin's lymphoma chemotherapy Folate deficiency GERD (gastroesophageal reflux disease) Gout pt denies Hiatal hernia pt denies Hyperglycemia Hyperlipidemia LDL goal <70 Hypertension Hyponatremia Liver disease fatty liver Non-Hodgkin lymphoma 2011 PERCY (obstructive sleep apnea) PVC's (premature ventricular contractions) 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 (blindness) Past Surgical History: Procedure Laterality Date INJECTION NERVE OTHER PERIPHERAL Left 12/16/2022 Laterality: Left; Surgeon: Isreal Sigala MD; Location: [facility] GUIDANCE FLUOROSCOPIC NEEDLE OR CATHETER PLACEMENT FOR SPINE INJECTION ADD-ON PX Left 12/16/2022 Laterality: Left; Surgeon: Isreal Sigala MD; Location: [facility] OR SUSPENSION URETHRA/URETHROVESICAL FEMALE OPEN W/ SYNTHETIC MATERIAL (SLING) Midline 08/31/2022 Laterality: Midline; Surgeon: Dariusz Rangel MD; Location: [facility] OR CYSTOURETHROSCOPY W/ DILATION BLADDER Midline 08/31/2022 Laterality: Midline; Surgeon: Dariusz Rangel MD; Location: [facility] OR COLPORRHAPHY ANTEROPOSTERIOR REPAIR CYSTOCELE & RECTOCELE Midline 08/31/2022 Laterality: Midline; Surgeon: Dariusz Rangel MD; Location: [facility] OR ARTHRODESIS SACROILIAC JOINT MINIMALLY INVASIVE W/ TRANSFIXING DEVICE Left 06/17/2022 Laterality: Left; Surgeon: Isreal Sigala MD; Location: [facility] GUIDANCE FLUOROSCOPIC NEEDLE OR CATHETER PLACEMENT FOR SPINE INJECTION ADD-ON PX Left 06/17/2022 Laterality: Left; Surgeon: Isreal Sigala MD; Location: [facility] OR EGD W/ DILATION BALLOON N/A 12/01/2021 Laterality: N/A; Surgeon: Indra Parrish DO; Location: [facility] SHOULDER ARTHROSCOPY Left 06/18/2021 REMOVAL CENTRAL VENOUS ACCESS DEVICE TUNNELED W/ PORT PUMP Left 09/13/2019 Laterality: Left; Surgeon: Eduardo Muñoz MD; Location: [facility] ([facility]IR) EGD W/ DILATION BALLOON N/A 06/30/2018 Laterality: N/A; Surgeon: Indra Parrish DO; Location: [facility] EGD DIAGNOSTIC N/A 04/07/2018 Laterality: N/A; Surgeon: Wilner Leigh MD; Location: [facility] COLONOSCOPY DIAGNOSTIC N/A 04/07/2018 Laterality: N/A; Surgeon: Wilner Leigh MD; Location: [facility] KNEE REPLACEMENT Right 05/2015 done at [place]--CC ARTHROPLASTY KNEE TOTAL Right 04/2015 INSERTION PICC W/ PORT PUMP 2014 power port COLONOSCOPY DIAGNOSTIC 2006 SALPINGO-OOPHORECTOMY OPEN N/A 1983 APPENDECTOMY OPEN 1983 TONSILLECTOMY ADENOIDECTOMY 1967 EGD DIAGNOSTIC 10 months ago Social History Occupational History Employer: RETIRED Tobacco Use Smoking status: Former Packs/day: 0.75 Years: 35.00 Total pack years: 26.25 Types: Cigarettes Quit date: 04/23/2013 Years since quittin.1 Smokeless tobacco: Never Vaping Use Vaping Use: Never used Substance and Sexual Activity Alcohol use: Yes Alcohol/week: 2.0 standard drinks of alcohol Types: 2 Cans of beer per week Drug use: Never Sexual activity: Not Currently control/protection: Menopause ROS: Review of Systems Nurse Note: Review of Systems Constitutional: Negative for fatigue, fever and unexpected weight change. HENT: No difficulty swallowing No change in voice Respiratory: Negative for cough, shortness of breath and wheezing. Cardiovascular: Negative for chest pain, palpitations and leg swelling. Gastrointestinal: Negative for constipation, diarrhea, nausea and vomiting. Neurological: Negative for tremors, weakness and numbness. Psychiatric/Behavioral: Negative for sleep disturbance. The patient is not nervous/anxious. Nursing Assessment: Physical Exam Objective: Vitals: 06/28/23 1316 BP: 128/60 Objective: Vascular: Dorsalis pedis and posterior tibial pulses are readilly palpable and graded at 2/4 bilateral. Dermatological: Left 4th toe with mild swelling and localized erythema. With pressure I am able to push out one drop of purulence from the plantar surface of the toe MRI FOOT LEFT WITHOUT CONTRAST Result Date: 05/10/2023 EXAM: MRI FOOT LEFT WITHOUT CONTRAST HISTORY: For stress swelling and abscess. Rule out osteomyelitis COMPARISON: None. TECHNIQUE: Multiplanar MRI of left foot was performed without contrast in sagittal, coronal and axial planes using T1, T2 and STIR pulsing sequences FINDINGS: Bony structures of left foot including visualized tarsal bones, metatarsals and phalanges demonstrate no evidence of fracture or contusion. No dislocation is seen. Small joint effusion is seen in the first metatarsophalangeal joint. Subtle marrow edema is suspected involving the fourth distal phalanx without bony destructive changes or abnormal T1 signal. No cortical disruption is seen to suggest osteomyelitis. The flexor and extensor tendons appear intact. Visualized plantar fascia appears intact. Collateral ligaments appear intact. Lisfranc ligament is visualized and appears intact. Evidence of superficial veindeep soft tissue edema involving fourth toe without focal collections. Muscles demonstrate normal signal. IMPRESSION: Soft tissue edema 4th distal phalanx without T1 abnormality or cortical disruption to suggest osteomyelitis. XR FOOT LEFT 3 VIEWS Result Date: 05/02/2023 EXAM: XR FOOT LEFT 3 VIEWS HISTORY: infection, redness, drainage of left 4th toe. COMPARISON: None available. FINDINGS: 3 views of the left foot were obtained. These were AP, oblique and lateral views weightbearing I do not specifically see any evidence of fracture or dislocation. There are no peria rticular calcifications, erosions or obvious signs of osteomyelitis. No soft tissue air is seen. The fourth digit appears prominently swollen IMPRESSION: 1. Prominent soft tissue swelling of the fourth digit of the left foot. 2. I do not seeany evidence of fracture, dislocation, advanced arthropathy or osteomyelitis. Assessment: Elena was seen today for ulcer, cellulitis and follow-up. Diagnoses and all orders for this visit: Cellulitis and abscess of toe of left foot - CBC,PLATELETS; Future - COMPREHENSIVE METABOLIC PANEL; Future - AMB REFERRAL TO INFECTIOUS DISEASE - MRI FOOT LEFT WITHOUT CONTRAST; Future acute complicated, limb threatening diagnosis Plan: Patient was seen and evaluated today MRI left foot- concern with OM of left 4th toe with recurrent purulence coming out of toe ID referral for IV antibiotics Consider HBO At risk for loss of digit Non-surgical/ alternative options were offered and discussed with the patient. I discussed the potential risks of not performing surgery as well. Elena Galeano has elected to proceed with surgery. she will have the following proposed procedures: 1. Left fourth toe deep Incision and drainage This included a discussion on the indications, potential complications, anticipated results and expected postoperative course. We discussed weight bearing status after this procedure. Elena Galeano will be full weight bearing after surgery The patient understands that if they are non-weight bearing after the surgery this means no weight on the foot and they will use one of the following: crutches, knee scooter or walker. All of the patient's questions were answered. No guarantees were given to outcome of this procedure. The patient understands that she will leave the bandage on until their 1st post operative appointment unless given specific instructions to remove it before then. Patient understands the material risks and dangers inherently and potentially involved with the proposed therapy. This includes, but is not limited to: over correction and under correction, prolongedpain and swelling, nerve damage, recurrence of deformity, wound and bone healing complications, scarring, numbness and infection . We also discussed the possibility of deep vein thrombosis and digit/ limb loss and even . We discussed the signs and symptoms of deep vein thrombosis and how this is an emergency if this happens. On the day of surgery the patient will have a compression hose put on the contralateral surgery limb to help decrease this chance. The patient will also start aspirin therapy after surgery if ap propriate. The patient has been asked to read the consent and I went over the written consent with the patient. The consent was signed and scanned into their chart. We will schedule the surgery at the patient's request. No contraindications noted at this time. Appropriate blood work will be ordered An appointment will be made with the patient's PCP. This is for a surgical optimization, history and physical and for surgical clearance/ risk stratification. The patient will undergo MAC anesthesia. I will prescribe the following pain medicine: norco. The patient understands that narcotics can be addictive and that they will only be prescribed for 3- 5 days for moderate to severe pain after surgery. Elena understands that the goal of pain medicine is to make the pain tolerable and not gone completely. After the first 24 hours they can lengthenthe time between pain medicine and switch to Tylenol. We also talked about how pain medicine can cause constipation and they will consider a stool softener while on narcotics. I will check an [facility] report on the patient. The patient will follow up in the office about 7 days after surgery and were encouraged to call theoffice if she had any questions before tor after surgery. High level decision making was required to formulate the assessment and plan along with medication management and review of appropriate labs and imaging. Please note that this visit and patient were complex due to the seriousness and/or number of active problems/diagnoses/medication(s) [facility] of Present illness Narrative* Clara Real - 06/21/2023 8:00 AM EDT Referred by: Dr. Sigala Chief Complaint Patient presents with Lower Back - Pain HPI Patient reports pain of right SI joint region with intermittent radiating pain to the left region. Denies any radiating pain in lower extremities, denies numbness, burning or tingling Patient is s/p left SI joint fusion done May [address] Siglaa Patient states fusion has helped to eliminate left side pain, she now notes pain only when radiating from the right side Patient will be starting physical therapy in [place] as ordered by Dr. Sigala Location: right SI joint region Quality: stabbing ache Duration: right side pain noted for the past 9 months NSAIDs? Contraindicated due to CKD Analgesics? Tylenol Other pain modalities? Ice, heat Physical therapy? Done for left side, will start for right side Chiropractic? none Injections? None for current complaint Xrays? Lumbar spine 06/07/23 Bilateral hip and pelvis 12/08/21 MRI? Lumbar spine 06/20/23 CT? none Bowel or bladder dysfunction? none Numbness or tingling? none Weakness? none Patient occupation, sport or other pertinent activity: patient is retired Current Outpatient Medications: Albuterol (Ventolin HFA) 108 (90 Base) MCG/ACT Aero Soln inhaler, Inhale 2 puffs every 6 hours as needed for Wheezing., Disp: 18 g, Rfl: 0 Allopurinol 100 MG tablet, Take 1 tablet by mouth daily., Disp: 90 tablet, Rfl: 3 apixaban 2.5 MG tablet, 2.5 mg 2 tabs, BID- Lot # [id number] 08.15, Disp: 56 tablet, Rfl: 0 apixaban 5 MG tablet, Take 1 tablet by mouth every 12 hours., Disp: 180 tablet, Rfl: 3 buPROPion (Wellbutrin XL) 300 MG tablet XL, Take 1 tablet by mouth every morning before breakfast.,Disp: 90 tablet, Rfl: 0 carveDILOL (Coreg) 12.5 MG tablet, Take 1 tablet by mouth 2 times daily with meals. Given by Dr. Calderon, Disp: , Rfl: Cetirizine 10 MG tablet, Take 1 tablet by mouth daily as needed for Allergies. OTC, Disp: , Rfl: Clindamycin Phos-Benzoyl Perox 1.2-3.75 % Gel, Apply 1 Application topically daily. Given by Dermatology Dr. Dejesus, Disp: , Rfl: Clopidogrel 75 MG tablet, Take 1 tablet by mouth daily., Disp: 90 tablet, Rfl: 3 cyanocobalamin 1000 MCG tablet, Take 1 tablet by mouth daily. Chew 1 tab q daily, Disp: 90 tablet, Rfl: 0 doxycycline hyclate 100 MG capsule, Take 1 capsule by mouth daily for 14 days., Disp: 14 capsule, Rfl: 0 Evolocumab (Repatha SureClick) 140 MG/ML Solution Auto-injector injection, Inject 1 mL under the skin every 14 days., Disp: 2 mL, Rfl: 11 fenofibrate 160 MG tablet, Take 1 tablet by mouth daily., Disp: 90 tablet, Rfl: 3 Folic acid 1 MG tablet, Take 1 tablet by mouth daily., Disp: 90 tablet, Rfl: 0 Lisinopril 5 MG tablet, Take 1 tablet by mouth daily. Cancel previous refills, Disp: 90 tablet, Rfl: 0 magnesium oxide 400 (240 Mg) MG, Take 1 tablet by mouth daily. OTC, Disp: , Rfl: Mupirocin 2 % ointment, Apply topical TID for 7 days, Disp: 30 g, Rfl: 0 Pantoprazole (Protonix) [address] tablet DR, Take 1 tablet by mouth 2 times daily (take before meals)., Disp: 180 tablet, Rfl: 0 traZODone 100 MG tablet, Take 1 tablet by mouth at bedtime., Disp: 90 tablet, Rfl: 0 triamterene-hydrochlorothiazide (Dyazide) 37.5-25 MG per capsule, Take 1 capsule by mouth daily. Cancel previous refills, Disp: 90 capsule, Rfl: 3 Family History Problem Relation Age of Onset Hypertension Mother Lipid Disorder Mother Depression Mother Clotting Disorder Mother Dementia Father Arrhythmia Father A-Fib Breast Cancer Maternal Aunt Cancer- Other Maternal Uncle melanoma Ovarian Cancer Paternal Aunt Cancer Paternal Aunt brain Lung Cancer Maternal Grandfather Hypertension Son Lipid Disorder Daughter No known problems Daughter Autism Grandson Social History Tobacco Use Smoking status: Former Packs/day: 0.75 Years: 35.00 Total pack years: 26.25 Types: Cigarettes Quit date: 04/23/2013 Years since quittin.1 Smokeless tobacco: Never Vaping Use Vaping Use: Never used Substance Use Topics Alcohol use: Yes Alcohol/week: 2.0 standard drinks of alcohol Types: 2 Cans of beer per week Drug use: Never Past Surgical History: Procedure Laterality Date INJECTION NERVE OTHER PERIPHERAL Left 12/16/2022 Laterality: Left; Surgeon: Isreal Sigala MD; Location: [facility] GUIDANCE FLUOROSCOPIC NEEDLE OR CATHETER PLACEMENT FOR SPINE INJECTION ADD-ON PX Left 12/16/2022 Laterality: Left; Surgeon: Isreal Sigala MD; Location: [facility] OR SUSPENSION URETHRA/URETHROVESICAL FEMALE OPEN W/ SYNTHETIC MATERIAL (SLING) Midline 08/31/2022 Laterality: Midline; Surgeon: Dariusz Rangel MD; Location: [facility] OR CYSTOURETHROSCOPY W/ DILATION BLADDER Midline 08/31/2022 Laterality: Midline; Surgeon: Dariusz Rangel MD; Location: [facility] OR COLPORRHAPHY ANTEROPOSTERIOR REPAIR CYSTOCELE & RECTOCELE Midline 08/31/2022 Laterality: Midline; Surgeon: Dariusz Rangel MD; Location: [facility] OR ARTHRODESIS SACROILIAC JOINT MINIMALLY INVASIVE W/ TRANSFIXING DEVICE Left 06/17/2022 Laterality: Left; Surgeon: Isreal Sigala MD; Location: [facility] GUIDANCE FLUOROSCOPIC NEEDLE OR CATHETER PLACEMENT FOR SPINE INJECTION ADD-ON PX Left 06/17/2022 Laterality: Left; Surgeon: Isreal Sigala MD; Location: [facility] OR EGD W/ DILATION BALLOON N/A 12/01/2021 Laterality: N/A; Surgeon: Indra Parrish DO; Location: [facility] SHOULDER ARTHROSCOPY Left 06/18/2021 REMOVAL CENTRAL VENOUS ACCESS DEVICE TUNNELED W/ PORT PUMP Left 09/13/2019 Laterality: Left; Surgeon: Eduardo Muñoz MD; Location: [facility] INTERVENTIONAL RADIOLOGY (VIR) EGD W/ DILATION BALLOON N/A 06/30/2018 Laterality: N/A; Surgeon: Indra Parrish DO; Location: [facility] EGD DIAGNOSTIC N/A 04/07/2018 Laterality: N/A; Surgeon: Wilner Leigh MD; Location: [facility] COLONOSCOPY DIAGNOSTIC N/A 04/07/2018 Laterality: N/A; Surgeon: Wilner Leigh MD; Location: [facility] KNEE REPLACEMENT Right 05/2015 done at [place]--CC ARTHROPLASTY KNEE TOTAL Right 04/2015 INSERTION PICC W/ PORT PUMP 2014 power port COLONOSCOPY DIAGNOSTIC 2006 SALPINGO-OOPHORECTOMY OPEN N/A 1983 APPENDECTOMY OPEN 1983 TONSILLECTOMY ADENOIDECTOMY 1967 EGD DIAGNOSTIC 10 months ago There were no vitals filed for this visit. Constitutional No fevers, chills or sweats, unintentional weight gain or weight loss, night pain, or night sweats except as per HPI. Cardiovascular No recent chest pain or palpitations. No claudication. No new or worsening lower extremity edema except as per HPI. Respiratory No new or worsening shortness of breath, dyspnea on exertion, orthopnea or paroxysmal nocturnal dyspnea except as per HPI. Gastrointestinal No recent heartburn or stomach upset, no history of ulcers except as per HPI. Musculoskeletal No joint pain, stiffness, or weakness except as per HPI. Endocrine No polyphagia, polydypsia, or polyuria. Hematologic No known or recent anemia, no excessive bleeding. Rheumatologic No history or currently active autoimmune or rheumatologic disease except as per HPI. Integumentary No new or relevant rashes or lesions except as per HPI. Neurologic No numbness, tingling, or weakness into her distal extremities except as per HPI. Constitutional Normal No acute distress. Well nourished. Well developed. Head/Face Normal Facial features - Normal. Eyebrows - Normal. Skull - Normal. Hair and scalp - Normal. Eyes Normal General - Right: Normal, Left: Normal. Lids/external - Right: Normal, Left: Normal. Conjunctiva - Right: Normal, Left: Normal. Ears Normal Inspection - Right: Normal, Left: Normal. Pinna - Right: Normal, Left: Normal. Nasopharynx Normal External nose - Normal. Nares - Right: Normal. Nasal Mucosa - Normal. Lips/teeth/gums - Normal. Buccal mucosa - Normal. Neck Exam Normal Inspection - Normal. Range of motion - Normal. Neck Exam Comments Supple. Respiratory Normal Inspection - Normal. Cough - Absent. Effort - Normal. Cardiovascular Normal Heart rate - Regular rate. Vascular Normal Pulses - Radial: Normal, Brachial: Normal, Dorsalis pedis: Normal, Posterior tibial: Normal. Capillary refill - Less than 2 seconds. Skin * Rash - Description: none. Extremity Normal No Edema. No Calf tenderness. Diabetic Foot Screen Normal Pulses - Dorsalis pedis: Normal, Posterior tibial: Normal. Neurological Normal Level of consciousness - Normal. Orientation - Normal. Memory - Normal. Psychiatric Normal No agitation. Appropriate mood and affect. Appropriate affect. Normal insight. Normal judgment. * Chelsea Juan A - 06/21/2023 8:00 AM EDTAssociated Order(s): LOWER EXTREMITY INJECTION Lumbar spine Inspection: No erythema, ecchymosis, swelling or deformity. No open wounds. Normal lumbar lordosis.No evidence of marked scoliosis. Palpation: Non-tender to the spinous processes, paraspinals. Tender to Right SI joint. ROM: moderate limitation in flexion, extension, lateral bending and rotation. Strength: 5/5 and symmetric bilateral hip flexion, knee flexion/extension, ankle dorsiflexion/plantar flexion and EHL Sensation: Intact and symmetric to soft touch for the bilateral L3-S1 dermatomes. Reflexes: Intact and symmetric bilateral patellar and Achilles. Special Maneuvers: Negative straight leg raise and crossover sign. BONILLA Positive MAXWELL Positive DISTRACTION Positive THIGH THRUST Positive Vascular: Intact and symmetric dorsalis pedis and posterior tibial pulses. Lumbar xray reviewed from 06/07/[address] Sigala 06/07/23 Independent interpretation: 06/07/23 XR Lumbar spine - moderate to severe disc height loss at L4-5, no acute abnormalities, no listhesis, no instability. History obtained from patient. ASSESSMENT and PLAN 1. Osteoarthritis of right sacroiliac joint 2. Pain of right sacroiliac joint The evidence based treatment of ostearthritis was discussed today and handouts were given. Stepwise approach to treatment includes the following: Supplements - ASU 300mg for large joints, glucosamine/chondroitin for small joints, omega-3-FA's for heart health and some evidence for improvement in joint pain Medications - acetaminophen can be taken daily, not to exceed 3000mg in day; NSAIDs can be more effective at pain relief, however come with potentially consequences if taken daily including but not limited to gastric toxicity, GI bleeds, renal damage and chronic kidney disease, increased risk of heart attack. Bracing - depends on the case Exercise and physical therapy - recommended to maintain strength and range of motion of the affected joint; some insurances require PT prior to authorization for some injecitons and/or surgery. Injections - Corticosteroids are good to calm down inflammation, the gel medications (hyaluronic acid) are longer lasting and healthy, and PRP (platelet rich plasma) is a newer option that is healthy for the joint but considered experimental by insurances and so they will not cover it. Surgery - arthroscopic surgery no longer recommended as treatment for OA, although some specific cases may still benefit. The gold standard and definitive treatment for OA is joint replacement (knees, hips, shoulders, etc.) vs. joint fusion (sacroiliac joint, small joints, some intermediate sized joints). Today we injected the right lumbar paraspinal with ASSISTANT CASE MANAGER to help with pain and inflammation. Referrals: None Medications prescribed today: None Follow up plan: Possible 3 month US Guided right SI injection with ASSISTANT CASE MANAGER Complexity of problem(s): Moderate Risk of morbidity from additional testing or treatment: Low We discussed the natural history of this problem and usual treatments. We discussed possible treatment options including conservative, aggressive, invasive and non-invasive. These options were explained in detail. The patient and/or guardian agreed with the above assessment and plan. LOWER EXTREMITY INJECTION Date/Time: 06/21/2023 8:00 AM Performed by: Garry Stephens MD Authorized by: Garry Stephens MD Supporting Documentation Indications: pain Procedure Details: Procedure: trigger point injection Location: spine - Trigger Point Injection Details: Right lumbar paraspinal Needle size: 22 G Number of muscles injected: 1-2 muscles Medication Verification: I have personally verified and performed the final check of the medication(s) used in this procedure prior to administration. The following items were included during the verification process for medication(s) administered: drug name, strength, volume, expiration, physical integrity and appearance of the medication(s). Medications administered: 1 mL Bupivacaine (PF) 0.5 %; 1 mL Lidocaine 10 mg/mL; 40 mg triamcinolone 40 MG/ML; 4 mg dexAMETHasone 4 MG/ML Patient tolerance: patient tolerated the procedure well with no immediate complications Comments Medical Decision Making At today's visit I reviewed the history, physical examination, and previous pertinent imaging. We weighed the options of whether or not to proceed with an injection today based off of these findings and discussed alternatives. After this discussion, I felt that the injection was indicated and we elected to proceed. This evaluation and management service was a separate and identifiable service apart from the injection. Pre-Procedure Details The attending physician was present for the entire procedure. Consent: Consent was obtained prior to the procedure after discussion of the risks, benefits and alternatives, and expected outcomes were discussed with the patient. The possibilities of reaction to medication, bleeding, infection, the need for additional procedures, failure to diagnosis a condition, and creating a complication requiring operation were discussed with the patient. The patient concurred with the proposed plan, giving consent. Preparation: Patient was prepped in the usual sterile fashion. The patient was prepped with alcohol. Differential diagnoses of back pain were considered including but not limited to degenerative change, internal derangement, fracture and any other severely limiting injury. Patient counseled on expected outcome and continued treatment and healing process. Patient tolerated the procedure well and was discharged in good condition with post-procedure instructions and anticipatory guidance regarding possible adverse reactions after the procedure including but not limited to infection, injection site flare reaction, allergic reaction. If corticosteroids were used then specifically the patient may develop hyperglycemia, facial flushing, heart palpitations amongst many other side effects associated with corticosteroids. * Garry Stephens MD - 06/21/2023 8:00 AM EDT Referred by: Dr. Sigala Chief Complaint Patient presents with Lower Back - Pain HPI Patient reports pain of right SI joint region with intermittent radiating pain to the left region. Denies any radiating pain in lower extremities, denies numbness, burning or tingling Patient is s/p left SI joint fusion done May [address] Sigala Patient states fusion has helped to eliminate left side pain, she now notes pain only when radiating from the right side Patient will be starting physical therapy in [place] as ordered by Dr. Sigala Location: right SI joint region Quality: stabbing ache Duration: right side pain noted for the past 9 months NSAIDs? Contraindicated due to CKD Analgesics? Tylenol Other pain modalities? Ice, heat Physical therapy? Done for left side, will start for right side Chiropractic? none Injections? None for current complaint Xrays? Lumbar spine 06/07/23 Bilateral hip and pelvis 12/08/21 MRI? Lumbar spine 06/20/23 CT? none Bowel or bladder dysfunction? none Numbness or tingling? none Weakness? none Patient occupation, sport or other pertinent activity: patient is retired Current Outpatient Medications: Albuterol (Ventolin HFA) 108 (90 Base) MCG/ACT Aero Soln inhaler, Inhale 2 puffs every 6 hours as needed for Wheezing., Disp: 18 g, Rfl: 0 Allopurinol 100 MG tablet, Take 1 tablet by mouth daily., Disp: 90 tablet, Rfl: 3 apixaban 2.5 MG tablet, 2.5 mg 2 tabs, BID- Lot # [id number] 08.15, Disp: 56 tablet, Rfl: 0 apixaban 5 MG tablet, Take 1 tablet by mouth every 12 hours., Disp: 180 tablet, Rfl: 3 buPROPion (Wellbutrin XL) 300 MG tablet XL, Take 1 tablet by mouth every morning before breakfast.,Disp: 90 tablet, Rfl: 0 carveDILOL (Coreg) 12.5 MG tablet, Take 1 tablet by mouth 2 times daily with meals. Given by Dr. Calderon, Disp: , Rfl: Cetirizine 10 MG tablet, Take 1 tablet by mouth daily as needed for Allergies. OTC, Disp: , Rfl: Clindamycin Phos-Benzoyl Perox 1.2-3.75 % Gel, Apply 1 Application topically daily. Given by Dermatology Dr. Dejesus, Disp: , Rfl: Clopidogrel 75 MG tablet, Take 1 tablet by mouth daily., Disp: 90 tablet, Rfl: 3 cyanocobalamin 1000 MCG tablet, Take 1 tablet by mouth daily. Chew 1 tab q daily, Disp: 90 tablet, Rfl: 0 doxycycline hyclate 100 MG capsule, Take 1 capsule by mouth daily for 14 days., Disp: 14 capsule, Rfl: 0 Evolocumab (Repatha SureClick) 140 MG/ML Solution Auto-injector injection, Inject 1 mL under the skin every 14 days., Disp: 2 mL, Rfl: 11 fenofibrate 160 MG tablet, Take 1 tablet by mouth daily., Disp: 90 tablet, Rfl: 3 Folic acid 1 MG tablet, Take 1 tablet by mouth daily., Disp: 90 tablet, Rfl: 0 Lisinopril 5 MG tablet, Take 1 tablet by mouth daily. Cancel previous refills, Disp: 90 tablet, Rfl: 0 magnesium oxide 400 (240 Mg) MG, Take 1 tablet by mouth daily. OTC, Disp: , Rfl: Mupirocin 2 % ointment, Apply topical TID for 7 days, Disp: 30 g, Rfl: 0 Pantoprazole (Protonix) [address] tablet DR, Take 1 tablet by mouth 2 times daily (take before meals)., Disp: 180 tablet, Rfl: 0 traZODone 100 MG tablet, Take 1 tablet by mouth at bedtime., Disp: 90 tablet, Rfl: 0 triamterene-hydrochlorothiazide (Dyazide) 37.5-25 MG per capsule, Take 1 capsule by mouth daily. Cancel previous refills, Disp: 90 capsule, Rfl: 3 Family History Problem Relation Age of Onset Hypertension Mother Lipid Disorder Mother Depression Mother Clotting Disorder Mother Dementia Father Arrhythmia Father A-Fib Breast Cancer Maternal Aunt Cancer- Other Maternal Uncle melanoma Ovarian Cancer Paternal Aunt Cancer Paternal Aunt brain Lung Cancer Maternal Grandfather Hypertension Son Lipid Disorder Daughter No known problems Daughter Autism Grandson Social History Tobacco Use Smoking status: Former Packs/day: 0.75 Years: 35.00 Total pack years: 26.25 Types: Cigarettes Quit date: 04/23/2013 Years since quittin.1 Smokeless tobacco: Never Vaping Use Vaping Use: Never used Substance Use Topics Alcohol use: Yes Alcohol/week: 2.0 standard drinks of alcohol Types: 2 Cans of beer per week Drug use: Never Past Surgical History: Procedure Laterality Date INJECTION NERVE OTHER PERIPHERAL Left 12/16/2022 Laterality: Left; Surgeon: Isreal Sigala MD; Location: [facility] OR GUIDANCE FLUOROSCOPIC NEEDLE OR CATHETER PLACEMENT FOR SPINE INJECTION ADD-ON PX Left 12/16/2022 Laterality: Left; Surgeon: Isreal Sigala MD; Location: [facility] OR SUSPENSION URETHRA/URETHROVESICAL FEMALE OPEN W/ SYNTHETIC MATERIAL (SLING) Midline 08/31/2022 Laterality: Midline; Surgeon: Dariusz Rangel MD; Location: [facility] OR CYSTOURETHROSCOPY W/ DILATION BLADDER Midline 08/31/2022 Laterality: Midline; Surgeon: Dariusz Rangel MD; Location: [facility] OR COLPORRHAPHY ANTEROPOSTERIOR REPAIR CYSTOCELE & RECTOCELE Midline 08/31/2022 Laterality: Midline; Surgeon: Dariusz Rangel MD; Location: [facility] OR ARTHRODESIS SACROILIAC JOINT MINIMALLY INVASIVE W/ TRANSFIXING DEVICE Left 06/17/2022 Laterality: Left; Surgeon: Isreal Sigala MD; Location: [facility] GUIDANCE FLUOROSCOPIC NEEDLE OR CATHETER PLACEMENT FOR SPINE INJECTION ADD-ON PX Left 06/17/2022 Laterality: Left; Surgeon: Isreal Sigala MD; Location: [facility] OR EGD W/ DILATION BALLOON N/A 12/01/2021 Laterality: N/A; Surgeon: Indra Parrish DO; Location: [facility] SHOULDER ARTHROSCOPY Left 06/18/2021 REMOVAL CENTRAL VENOUS ACCESS DEVICE TUNNELED W/ PORT PUMP Left 09/13/2019 Laterality: Left; Surgeon: Eduardo Muñoz MD; Location: [facility] INTERVENTIONAL RADIOLOGY (VIR) EGD W/ DILATION BALLOON N/A 06/30/2018 Laterality: N/A; Surgeon: Indra Parrish DO; Location: [facility] EGD DIAGNOSTIC N/A 04/07/2018 Laterality: N/A; Surgeon: Wilner Leigh MD; Location: [facility] COLONOSCOPY DIAGNOSTIC N/A 04/07/2018 Laterality: N/A; Surgeon: Wilner Leigh MD; Location: [facility] KNEE REPLACEMENT Right 05/2015 done at [place]--CC ARTHROPLASTY KNEE TOTAL Right 04/2015 INSERTION PICC W/ PORT PUMP 2014 power port COLONOSCOPY DIAGNOSTIC 2006 SALPINGO-OOPHORECTOMY OPEN N/A 1983 APPENDECTOMY OPEN 1983 TONSILLECTOMY ADENOIDECTOMY 1968 EGD DIAGNOSTIC 10 months ago There were no vitals filed for this visit. Constitutional No fevers, chills or sweats, unintentional weight gain or weight loss, night pain, or night sweats except as per HPI. Cardiovascular No recent chest pain or palpitations. No claudication. No new or worsening lower extremity edema except as per HPI. Respiratory No new or worsening shortness of breath, dyspnea on exertion, orthopnea or paroxysmal nocturnal dyspnea except as per HPI. Gastrointestinal No recent heartburn or stomach upset, no history of ulcers except as per HPI. Musculoskeletal No joint pain, stiffness, or weakness except as per HPI. Endocrine No polyphagia, polydypsia, or polyuria. Hematologic No known or recent anemia, no excessive bleeding. Rheumatologic No history or currently active autoimmune or rheumatologic disease except as per HPI. Integumentary No new or relevant rashes or lesions except as per HPI. Neurologic No numbness, tingling, or weakness into her distal extremities except as per HPI. Constitutional Normal No acute distress. Well nourished. Well developed. Head/Face Normal Facial features - Normal. Eyebrows - Normal. Skull - Normal. Hair and scalp - Normal. Eyes Normal General - Right: Normal, Left: Normal. Lids/external - Right: Normal, Left: Normal. Conjunctiva - Right: Normal, Left: Normal. Ears Normal Inspection - Right: Normal, Left: Normal. Pinna - Right: Normal, Left: Normal. Nasopharynx Normal External nose - Normal. Nares - Right: Normal. Nasal Mucosa - Normal. Lips/teeth/gums - Normal. Buccal mucosa - Normal. Neck Exam Normal Inspection - Normal. Range of motion - Normal. Neck Exam Comments Supple. Respiratory Normal Inspection - Normal. Cough - Absent. Effort - Normal. Cardiovascular Normal Heart rate - Regular rate. Vascular Normal Pulses - Radial: Normal, Brachial: Normal, Dorsalis pedis: Normal, Posterior tibial: Normal. Capillary refill - Less than 2 seconds. Skin * Rash - Description: none. Extremity Normal No Edema. No Calf tenderness. Diabetic Foot Screen Normal Pulses - Dorsalis pedis: Normal, Posterior tibial: Normal. Neurological Normal Level of consciousness - Normal. Orientation - Normal. Memory - Normal. Psychiatric Normal No agitation. Appropriate mood and affect. Appropriate affect. Normal insight. Normal judgment. Lumbar spine Inspection: No erythema, ecchymosis, swelling or deformity. No open wounds. Normal lumbar lordosis.No evidence of marked scoliosis. Palpation: Non-tender to the spinous processes, paraspinals. Tender to Right SI joint. ROM: moderate limitation in flexion, extension, lateral bending and rotation. Strength: 5/5 and symmetric bilateral hip flexion, knee flexion/extension, ankle dorsiflexion/plantar flexion and EHL Sensation: Intact and symmetric to soft touch for the bilateral L3-S1 dermatomes. Reflexes: Intact and symmetric bilateral patellar and Achilles. Special Maneuvers: Negative straight leg raise and crossover sign. BONILLA Positive MAXWELL Positive DISTRACTION Positive THIGH THRUST Positive Vascular: Intact and symmetric dorsalis pedis and posterior tibial pulses. Lumbar xray reviewed from 06/07/[address] Sigala 06/07/23 Independent interpretation: 06/07/23 XR Lumbar spine - moderate to severe disc height loss at L4-5, no acute abnormalities, no listhesis, no instability. History obtained from patient. ASSESSMENT and PLAN 1. Osteoarthritis of right sacroiliac joint 2. Pain of right sacroiliac joint The evidence based treatment of ostearthritis was discussed today and handouts were given. Stepwise approach to treatment includes the following: Supplements - ASU 300mg for large joints, glucosamine/chondroitin for small joints, omega-3-FA's for heart health and some evidence for improvement in joint pain Medications - acetaminophen can be taken daily, not to exceed 3000mg in day; NSAIDs can be more effective at pain relief, however come with potentially consequences if taken daily including but not limited to gastric toxicity, GI bleeds, renal damage and chronic kidney disease, increased risk of heart attack. Bracing - depends on the case Exercise and physical therapy - recommended to maintain strength and range of motion of the affected joint; some insurances require PT prior to authorization for some injecitons and/or surgery. Injections - Corticosteroids are good to calm down inflammation, the gel medications (hyaluronic acid) are longer lasting and healthy, and PRP (platelet rich plasma) is a newer option that is healthy for the joint but considered experimental by insurances and so they will not cover it. Surgery - arthroscopic surgery no longer recommended as treatment for OA, although some specific cases may still benefit. The gold standard and definitive treatment for OA is joint replacement (knees, hips, shoulders, etc.) vs. joint fusion (sacroiliac joint, small joints, some intermediate sized joints). Today we injected the right lumbar paraspinal with ASSISTANT CASE MANAGER to help with pain and inflammation. Referrals: None Medications prescribed today: None Follow up plan: Possible 3 month US Guided right SI injection with ASSISTANT CASE MANAGER Complexity of problem(s): Moderate Risk of morbidity from additional testing or treatment: Low We discussed the natural history of this problem and usual treatments. We discussed possible treatment options including conservative, aggressive, invasive and non-invasive. These options were explained in detail. The patient and/or guardian agreed with the above assessment and plan. LOWER EXTREMITY INJECTION Date/Time: 06/21/2023 8:00 AM Performed by: Garry Stephens MD Authorized by: Garry Stephens MD Supporting Documentation Indications: pain Procedure Details: Procedure: trigger point injection Location: spine - Trigger Point Injection Details: Right lumbar paraspinal Needle size: 22 G Number of muscles injected: 1-2 muscles Medication Verification: I have personally verified and performed the final check of the medication(s) used in this procedure prior to administration. The following items were included during the verification process for medication(s) administered: drug name, strength, volume, expiration, physical integrity and appearance of the medication(s). Medications administered: 1 mL Bupivacaine (PF) 0.5 %; 1 mL Lidocaine 10 mg/mL; 40 mg triamcinolone 40 MG/ML; 4 mg dexAMETHasone 4 MG/ML Patient tolerance: patient tolerated the procedure well with no immediate complications Comments Medical Decision Making At today's visit I reviewed the history, physical examination, and previous pertinent imaging. We weighed the options of whether or not to proceed with an injection today based off of these findings and discussed alternatives. After this discussion, I felt that the injection was indicated and we elected to proceed. This evaluation and management service was a separate and identifiable service apart from the injection. Pre-Procedure Details The attending physician was present for the entire procedure. Consent: Consent was obtained prior to the procedure after discussion of the risks, benefits and alternatives, and expected outcomes were discussed with the patient. The possibilities of reaction to medication, bleeding, infection, the need for additional procedures, failure to diagnosis a condition, and creating a complication requiring operation were discussed with the patient. The patient concurred with the proposed plan, giving consent. Preparation: Patient was prepped in the usual sterile fashion. The patient was prepped with alcohol. Differential diagnoses of back pain were considered including but not limited to degenerative change, internal derangement, fracture and any other severely limiting injury. Patient counseled on expected outcome and continued treatment and healing process. Patient tolerated the procedure well and was discharged in good condition with post-procedure instructions and anticipatory guidance regarding possible adverse reactions after the procedure including but not limited to infection, injection site flare reaction, allergic reaction. If corticosteroids were used then specifically the patient may develop hyperglycemia, facial flushing, heart palpitations amongst many other side effects associated with corticosteroids. I have reviewed, edited and added to the above note and agree with those findings. Additions if any: Garry Stephens MD, CAQSM [facility] [employer] - [facility] documented in this [facility] [place]08-29-2023 Instructions* Patient Instructions* Chelsea Juan A - 06/21/2023 8:00 AM EDT Patient counseled on expected outcome and continued treatment and healing process. Patient tolerated the procedure well and was discharged in good condition with post-procedure instructions and anticipatory guidance regarding possible adverse reactions after the procedure including but not limited to infection, injection site flare reaction, allergic reaction. If corticosteroids were used then specifically the patient may develop hyperglycemia, facial flushing, heart palpitations amongst many other side effects associated with corticosteroids. documented in this [facility] [place]08-22-2023 History of Present illness Narrative* Joycelyn Calhoun MA - 06/14/2023 9:30 AM EDT Nurse Note: Review of Systems Constitutional: Negative for fatigue, fever and unexpected weight change. HENT: No difficulty swallowing No change in voice Respiratory: Negative for cough, shortness of breath and wheezing. Cardiovascular: Negative for chest pain, palpitations and leg swelling. Gastrointestinal: Negative for constipation, diarrhea, nausea and vomiting. Neurological: Negative for tremors, weakness and numbness. Psychiatric/Behavioral: Negative for sleep disturbance. The patient is not nervous/anxious. Nursing Assessment: Physical Exam * Dawn Uriarte DPM - 06/14/2023 9:30 AM EDT Patient Elena Galeano Date: 06/14/2023 Chief Complaint: Elena Galeano is a 63 y.o. year old female who presents today with a complaintof an ulcer to the left 4th toe Subjective: Elena states that this weekend she was able to squeeze out a drop of pus from the left 4th toe. She took a picture to show me. She is done with the [employer]. History that the toe is improving, but something is happening on the underside of the toe. History of the left 4th toe. She notes that she is on her 2nd round of keflex. She has had an xray a few days ago and some purulence drained from the toe a few days ago. A culture is pending. She notes that the toe has been bad for 3-4 months, but she really has had problems on and off for about a month. She does not remember any kind of trauma. Allergies Allergen Reactions Nsaids Has CKD-3a, and Anemia Current Outpatient Medications Medication Sig Albuterol (Ventolin HFA) 108 (90 Base) MCG/ACT Aero Soln inhaler Inhale 2 puffs every 6 hours as needed for Wheezing. Allopurinol 100 MG tablet Take 1 tablet by mouth daily. apixaban 5 MG tablet Take 1 tablet by mouth every 12 hours. buPROPion (Wellbutrin XL) 300 MG tablet XL Take 1 tablet by mouth every morning before breakfast. carveDILOL (Coreg) 12.5 MG tablet Take 1 tablet by mouth 2 times daily with meals. Given by Dr. Calderon Cetirizine 10 MG tablet Take 1 tablet by mouth daily as needed for Allergies. OTC Clindamycin Phos-Benzoyl Perox 1.2-3.75 % Gel Apply 1 Application topically daily. Given by Dermatology Dr. Dejesus Clopidogrel 75 MG tablet Take 1 tablet by mouth daily. cyanocobalamin 1000 MCG tablet Take 1 tablet by mouth daily. Chew 1 tab q daily Evolocumab (Repatha Dudley) 140 MG/ML Solution Auto-injector injection Inject 1 mL under the skin every 14 days. fenofibrate 160 MG tablet Take 1 tablet by mouth daily. Folic acid 1 MG tablet Take 1 tablet by mouth daily. Lisinopril 5 MG tablet Take 1 tablet by mouth daily. Cancel previous refills magnesium oxide 400 (240 Mg) MG Take 1 tablet by mouth daily. OTC Mupirocin 2 % ointment Apply topical TID for 7 days Pantoprazole (Protonix) [address] tablet DR Take 1 tablet by mouth 2 times daily (take before meals). traZODone 100 MG tablet Take 1 tablet by mouth at bedtime. triamterene-hydrochlorothiazide (Dyazide) 37.5-25 MG per capsule Take 1 capsule by mouth daily. Cancel previous refills doxycycline hyclate 100 MG capsule Take 1 capsule by mouth daily for 14 days. Past Medical History: Diagnosis Date A-fib Anemia low Fe Arrhythmia Arthritis ASCUS of cervix with negative high risk HPV Asthma B12 deficiency Carotid stenosis, bilateral-Right 30%, and left 60% Central retinal artery occlusion of left eye CKD (chronic kidney disease) stage 3, GFR 30-59 ml/min-3a CLL (chronic lymphocytic leukemia) 2011 [id number] on 09-30-2020 Depression Diffuse non-Hodgkin's lymphoma chemotherapy Folate deficiency GERD (gastroesophageal reflux disease) Gout pt denies Hiatal hernia pt denies Hyperglycemia Hyperlipidemia LDL goal <70 Hypertension Hyponatremia Liver disease fatty liver Non-Hodgkin lymphoma 2011 [place]CY (obstructive sleep apnea) PVC's (premature ventricular contractions) 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 (blindness) Past Surgical History: Procedure Laterality Date INJECTION NERVE OTHER PERIPHERAL Left 12/16/2022 Laterality: Left; Surgeon: Isreal Sigala MD; Location: [facility] GUIDANCE FLUOROSCOPIC NEEDLE OR CATHETER PLACEMENT FOR SPINE INJECTION ADD-ON PX Left 12/16/2022 Laterality: Left; Surgeon: Isreal Sigala MD; Location: [facility] OR SUSPENSION URETHRA/URETHROVESICAL FEMALE OPEN W/ SYNTHETIC MATERIAL (SLING) Midline 08/31/2022 Laterality: Midline; Surgeon: Dariusz Rangel MD; Location: [facility] OR CYSTOURETHROSCOPY W/ DILATION BLADDER Midline 08/31/2022 Laterality: Midline; Surgeon: Dariusz Rangel MD; Location: [facility] OR COLPORRHAPHY ANTEROPOSTERIOR REPAIR CYSTOCELE & RECTOCELE Midline 08/31/2022 Laterality: Midline; Surgeon: Dariusz Rangel MD; Location: [facility] OR ARTHRODESIS SACROILIAC JOINT MINIMALLY INVASIVE W/ TRANSFIXING DEVICE Left 06/17/2022 Laterality: Left; Surgeon: Isreal Sigala MD; Location: [facility] GUIDANCE FLUOROSCOPIC NEEDLE OR CATHETER PLACEMENT FOR SPINE INJECTION ADD-ON PX Left 06/17/2022 Laterality: Left; Surgeon: Isreal Sigala MD; Location: [facility] OR EGD W/ DILATION BALLOON N/A 12/01/2021 Laterality: N/A; Surgeon: Indra Parrish DO; Location: [facility] SHOULDER ARTHROSCOPY Left 06/18/2021 REMOVAL CENTRAL VENOUS ACCESS DEVICE TUNNELED W/ PORT PUMP Left 09/13/2019 Laterality: Left; Surgeon: Eduardo Muñoz MD; Location: [facility] INTERVENTIONAL RADIOLOGY (VIR) EGD W/ DILATION BALLOON N/A 06/30/2018 Laterality: N/A; Surgeon: Indra Parrish DO; Location: [facility] EGD DIAGNOSTIC N/A 04/07/2018 Laterality: N/A; Surgeon: Wilner Leigh MD; Location: [facility] COLONOSCOPY DIAGNOSTIC N/A 04/07/2018 Laterality: N/A; Surgeon: Wilner Leigh MD; Location: [facility] KNEE REPLACEMENT Right 05/2015 done at [place]--CC ARTHROPLASTY KNEE TOTAL Right 04/2015 INSERTION PICC W/ PORT PUMP 2014 power port COLONOSCOPY DIAGNOSTIC 2006 SALPINGO-OOPHORECTOMY OPEN N/A 1983 APPENDECTOMY OPEN 1983 TONSILLECTOMY ADENOIDECTOMY 1967 EGD DIAGNOSTIC 10 months ago Social History Occupational History Employer: RETIRED Tobacco Use Smoking status: Former Packs/day: 0.75 Years: 35.00 Total pack years: 26.25 Types: Cigarettes Quit date: 04/23/2013 Years since quittin.1 Smokeless tobacco: Never Vaping Use Vaping Use: Never used Substance and Sexual Activity Alcohol use: Yes Alcohol/week: 2.0 standard drinks of alcohol Types: 2 Cans of beer per week Drug use: Never Sexual activity: Not Currently control/protection: Menopause ROS: Review of Systems Nurse Note: Review of Systems Constitutional: Negative for fatigue, fever and unexpected weight change. HENT: No difficulty swallowing No change in voice Respiratory: Negative for cough, shortness of breath and wheezing. Cardiovascular: Negative for chest pain, palpitations and leg swelling. Gastrointestinal: Negative for constipation, diarrhea, nausea and vomiting. Neurological: Negative for tremors, weakness and numbness. Psychiatric/Behavioral: Negative for sleep disturbance. The patient is not nervous/anxious. Nursing Assessment: Physical Exam Objective: Vitals: 06/14/23 0913 BP: 160/80 Pulse: 70 Objective: Vascular: Dorsalis pedis and posterior tibial pulses are readilly palpable and graded at 2/4 bilateral. Dermatological: Left 4th toe with mild swelling and no localized erythema. There is no drainage, no ulcerations. MRI FOOT LEFT WITHOUT CONTRAST Result Date: 05/10/2023 EXAM: MRI FOOT LEFT WITHOUT CONTRAST HISTORY: For stress swelling and abscess. Rule out osteomyelitis COMPARISON: None. TECHNIQUE: Multiplanar MRI of left foot was performed without contrast in sagittal, coronal and axial planes using T1, T2 and STIR pulsing sequences FINDINGS: Bony structures of left foot including visualized tarsal bones, metatarsals and phalanges demonstrate no evidence of fracture or contusion. No dislocation is seen. Small joint effusion is seen in the first metatarsophalangeal joint. Subtle marrow edema is suspected involving the fourth distal phalanx without bony destructive changes or abnormal T1 signal. No cortical disruption is seen to suggest osteomyelitis. The flexor and extensor tendons appear intact. Visualized plantar fascia appears intact. Collateral ligaments appear intact. Lisfranc ligament is visualized and appears intact. Evidence of superficial veindeep soft tissue edema involving fourth toe without focal collections. Muscles demonstrate normal signal. IMPRESSION: Soft tissue edema 4th distal phalanx without T1 abnormality or cortical disruption to suggest osteomyelitis. XR FOOT LEFT 3 VIEWS Result Date: 05/02/2023 EXAM: XR FOOT LEFT 3 VIEWS HISTORY: infection, redness, drainage of left 4th toe. COMPARISON: None available. FINDINGS: 3 views of the left foot were obtained. These were AP, oblique and lateral views weightbearing I do not specifically see any evidence of fracture or dislocation. There are no peria rticular calcifications, erosions or obvious signs of osteomyelitis. No soft tissue air is seen. The fourth digit appears prominently swollen IMPRESSION: 1. Prominent soft tissue swelling of the fourth digit of the left foot. 2. I do not seeany evidence of fracture, dislocation, advanced arthropathy or osteomyelitis. Assessment: Elena was seen today for ulcer and follow-up. Diagnoses and all orders for this visit: Cellulitis and abscess of toe of left foot - doxycycline hyclate 100 MG capsule; Take 1 capsule by mouth daily for 14 days. - XR FOOT LEFT 3 VIEWS; Future acute complicated, limb threatening diagnosis Plan: Patient was seen and evaluated today No open ulcer today Will put her on doxycyline every day for [address] Uriarte independent interpretation/Impression of results: No signs of OM Had an MRI on 05/10/23 that was negative for bone infection Follow up in 2 weeks [facility] of Present illness Narrative* Colleen Oreilly - 05/10/2023 10:50 AM EDT Nurse Note: Review of Systems Constitutional: Negative for fatigue, fever and unexpected weight change. HENT: No difficulty swallowing No change in voice Respiratory: Negative for cough, shortness of breath and wheezing. Cardiovascular: Negative for chest pain, palpitations and leg swelling. Gastrointestinal: Negative for constipation, diarrhea, nausea and vomiting. Neurological: Negative for tremors, weakness and numbness. Psychiatric/Behavioral: Negative for sleep disturbance. The patient is not nervous/anxious. Nursing Assessment: Physical Exam * Dawn Uriarte DPM - 05/10/2023 10:50 AM EDT Patient Elena Galeano Date: 05/10/2023 Chief Complaint: Elena Galeano is a 63 y.o. year old female who presents today with a complaintof an ulcer to the left 4th toe Subjective: Elena states that the toe is doing a little better. She has been doing dressing changes. No n/v/f History of the left 4th toe. She notes that she is on her 2nd round of keflex. She has had an xray a few days ago and some purulence drained from the toe a few days ago. A culture is pending. She notes that the toe has been bad for 3-4 months, but she really has had problems on and off for about a month. She does not remember any kind of trauma. Allergies Allergen Reactions Nsaids Has CKD-3a Current Outpatient Medications Medication Sig Albuterol (Ventolin HFA) 108 (90 Base) MCG/ACT Aero Soln inhaler Inhale 2 puffs every 6 hours as needed for Wheezing. Allopurinol 100 MG tablet Take 1 tablet by mouth daily. apixaban 5 MG tablet Take 1 tablet by mouth every 12 hours. buPROPion (Wellbutrin XL) 300 MG tablet XL Take 1 tablet by mouth every morning before breakfast. carveDILOL (Coreg) 12.5 MG tablet Take 1 tablet by mouth 2 times daily with meals. Given by Dr. Calderon Cefixime 400 MG capsule Take 1 capsule by mouth daily for 7 days. Cetirizine 10 MG tablet Take 1 tablet by mouth daily as needed for Allergies. OTC Clindamycin Phos-Benzoyl Perox 1.2-3.75 % Gel Apply 1 Application topically daily. Given by Dermatology Dr. Dejesus Clopidogrel 75 MG tablet Take 1 tablet by mouth daily. cyanocobalamin 1000 MCG tablet Take 1 tablet by mouth daily. Chew 1 tab q daily Escitalopram 10 MG tablet Take 2 tablets by mouth daily. Evolocumab (Repatha SureClick) 140 MG/ML Solution Auto-injector injection Inject 1 mL under the skin every 14 days. fenofibrate 160 MG tablet Take 1 tablet by mouth daily. Folic acid 1 MG tablet Take 1 tablet by mouth daily. Lisinopril 5 MG tablet Take 1 tablet by mouth daily. Cancel previous refills Mupirocin 2 % ointment Apply topical TID for 7 days Pantoprazole (Protonix) [address] tablet DR Take 1 tablet by mouth 2 times daily (take before meals). traZODone 100 MG tablet Take 1 tablet by mouth at bedtime. triamterene-hydrochlorothiazide (Dyazide) 37.5-25 MG per capsule Take 1 capsule by mouth daily. Cancel previous refills Past Medical History: Diagnosis Date A-fib Anemia low Fe Arrhythmia Arthritis ASCUS of cervix with negative high risk HPV Asthma B12 deficiency Carotid stenosis, bilateral-Right 30%, and left 60% Central retinal artery occlusion of left eye CKD (chronic kidney disease) stage 3, GFR 30-59 ml/min-3a CLL (chronic lymphocytic leukemia) 2011 [id number] on 09-30-2020 Depression Diffuse non-Hodgkin's lymphoma chemotherapy Folate deficiency GERD (gastroesophageal reflux disease) Gout pt denies Hiatal hernia pt denies Hyperglycemia Hyperlipidemia LDL goal <70 Hypertension Hyponatremia Liver disease fatty liver Non-Hodgkin lymphoma 2011 [place] (obstructive sleep apnea) PVC's (premature ventricular contractions) 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 (blindness) Past Surgical History: Procedure Laterality Date INJECTION NERVE OTHER PERIPHERAL Left 12/16/2022 Laterality: Left; Surgeon: Isreal Sigala MD; Location: [facility] GUIDANCE FLUOROSCOPIC NEEDLE OR CATHETER PLACEMENT FOR SPINE INJECTION ADD-ON PX Left 12/16/2022 Laterality: Left; Surgeon: Isreal Sigala MD; Location: [facility] OR SUSPENSION URETHRA/URETHROVESICAL FEMALE OPEN W/ SYNTHETIC MATERIAL (SLING) Midline 08/31/2022 Laterality: Midline; Surgeon: Dariusz Rangel MD; Location: [facility] OR CYSTOURETHROSCOPY W/ DILATION BLADDER Midline 08/31/2022 Laterality: Midline; Surgeon: Dariusz Rangel MD; Location: [facility] OR COLPORRHAPHY ANTEROPOSTERIOR REPAIR CYSTOCELE & RECTOCELE Midline 08/31/2022 Laterality: Midline; Surgeon: Dariusz Rangel MD; Location: [facility] OR ARTHRODESIS SACROILIAC JOINT MINIMALLY INVASIVE W/ TRANSFIXING DEVICE Left 06/17/2022 Laterality: Left; Surgeon: Isreal Sigala MD; Location: [facility] OR GUIDANCE FLUOROSCOPIC NEEDLE OR CATHETER PLACEMENT FOR SPINE INJECTION ADD-ON PX Left 06/17/2022 Laterality: Left; Surgeon: Isreal Sigala MD; Location: [facility] OR EGD W/ DILATION BALLOON N/A 12/01/2021 Laterality: N/A; Surgeon: Indra Parrish DO; Location: [facility] SHOULDER ARTHROSCOPY Left 06/18/2021 REMOVAL CENTRAL VENOUS ACCESS DEVICE TUNNELED W/ PORT PUMP Left 09/13/2019 Laterality: Left; Surgeon: Eduardo Muñoz MD; Location: [facility] INTERVENTIONAL RADIOLOGY (VIR) EGD W/ DILATION BALLOON N/A 06/30/2018 Laterality: N/A; Surgeon: Indra Parrish DO; Location: [facility] EGD DIAGNOSTIC N/A 04/07/2018 Laterality: N/A; Surgeon: Wilner Leigh MD; Location: [facility] COLONOSCOPY DIAGNOSTIC N/A 04/07/2018 Laterality: N/A; Surgeon: Wilner Leigh MD; Location: [facility] KNEE REPLACEMENT Right 05/2015 done at [place]--CC ARTHROPLASTY KNEE TOTAL Right 04/2015 INSERTION PICC W/ PORT PUMP 2014 power port COLONOSCOPY DIAGNOSTIC 2007 SALPINGO-OOPHORECTOMY OPEN N/A 1983 APPENDECTOMY OPEN 1983 TONSILLECTOMY ADENOIDECTOMY 1968 EGD DIAGNOSTIC 10 months ago Social History Occupational History Employer: RETIRED Tobacco Use Smoking status: Former Packs/day: 0.75 Years: 35.00 Total pack years: 26.25 Types: Cigarettes Quit date: 04/23/2013 Years since quittin.0 Smokeless tobacco: Never Vaping Use Vaping Use: Never used Substance and Sexual Activity Alcohol use: Yes Alcohol/week: 2.0 standard drinks of alcohol Types: 2 Cans of beer per week Comment: occassionally drinks beer Drug use: Never Sexual activity: Not Currently control/protection: Menopause ROS: Review of Systems Nurse Note: Review of Systems Constitutional: Negative for fatigue, fever and unexpected weight change. HENT: No difficulty swallowing No change in voice Respiratory: Negative for cough, shortness of breath and wheezing. Cardiovascular: Negative for chest pain, palpitations and leg swelling. Gastrointestinal: Negative for constipation, diarrhea, nausea and vomiting. Neurological: Negative for tremors, weakness and numbness. Psychiatric/Behavioral: Negative for sleep disturbance. The patient is not nervous/anxious. Nursing Assessment: Physical Exam Objective: Vitals: 05/10/23 1027 BP: 140/78 Pulse: 69 SpO2: 97% Objective: Vascular: Dorsalis pedis and posterior tibial pulses are readilly palpable and graded at 2/4 bilateral. Dermatological: Ulceration #1: Ulceration location Left 4th toe dorsal IPJ . Type: non diabetic wound Wound dimensions: 05/10/23 1 cm long by 1 cm wide by 0.2 cm deep Wound dimensions after debridement: 05/10/23 No debridement today Base: Ulceration extends completely and No exposed bone through skin to muscle Granular tissue 20%. Fibrous/scar tissue 60%. Necrotic tissue 20%. Drainage:mild clear serous drainage observed. Surrounding Area: negative streaking, negative crepitus, negative odor, Positive swelling and localized erythema Stephens Staging: Grade 3 - deep ulcer with osteomyelitis, or abscess Neurological: Epicritic sensation including sharp-dull and light touch are intact and without focalmotor or sensory deficit bilateral lower extremities. Normal muscle mass appreciated to both the lower extremity and foot bilateral. The patient can heel and toe walk with ease as well as arise from a seated position unassisted. Assessment: Elena was seen today for ulcer and follow-up. Diagnoses and all orders for this visit: Cellulitis and abscess of toe of left foot - MRI FOOT LEFT WITHOUT CONTRAST; Future Plan: Patient was seen and evaluated today MRI stat - no OM of the 4th toe. Continue with daily dressing changes with mupirocin ointment. Continue on the cefixime Still at risk for OM She has an upcoming TKA. I recommend that this surgery be delayed- she has an active wound that is infected. This should be healed prior to TKA surgery with dr. Blackwood. She is at risk for bone infection and amputation of the toe. The dressing can be removed in 24 hours, after that it should be covered with a Band-Aid and antibiotic cream. The wound will not be left open to air. The patient can shower with the bandage on. Nosoaking in a bath tub until the wound is healed. I will see the patient back in 1 week's time for reevaluation. Should she have any problems before then, they should contact me at the office. documented in this [facility]07-13-[facility]23 History of Present illness Narrative* Joycelyn Calhoun MA - 05/05/2023 1:00 PM EDT Nurse Note: Review of Systems Constitutional: Negative for fatigue, fever and unexpected weight change. HENT: No difficulty swallowing No change in voice Respiratory: Negative for cough, shortness of breath and wheezing. Cardiovascular: Negative for chest pain, palpitations and leg swelling. Gastrointestinal: Negative for constipation, diarrhea, nausea and vomiting. Neurological: Negative for tremors, weakness and numbness. Psychiatric/Behavioral: Negative for sleep disturbance. The patient is not nervous/anxious. Nursing Assessment: Physical Exam * Dawn Uriarte DPM - 05/05/2023 1:00 PM EDTAssociated Order(s): MA DRAIN SKIN ABSCESS COMPLIC/MULTIPLE Patient Elena Galeano Date: 05/05/2023 Chief Complaint: Elena Galeano is a 63 y.o. year old female who presents today with a complaintof an recurring ingrown nail. Subjective: Elena complains of the left 4th toe. She notes that she is on her 2nd round of keflex. She has had an xray a few days ago and some purulence drained from the toe a few days ago. A culture is pending. She notes that the toe has been bad for 3-4 months, but she really has had problems on and off for about a month. She does not remember any kind of trauma. Allergies Allergen Reactions Nsaids Has CKD-3a Current Outpatient Medications Medication Sig Albuterol (Ventolin HFA) 108 (90 Base) MCG/ACT Aero Soln inhaler Inhale 2 puffs every 6 hours as needed for Wheezing. Allopurinol 100 MG tablet Take 1 tablet by mouth daily. apixaban 5 MG tablet Take 1 tablet by mouth every 12 hours. buPROPion (Wellbutrin XL) 300 MG tablet XL Take 1 tablet by mouth every morning before breakfast. carveDILOL (Coreg) 12.5 MG tablet Take 1 tablet by mouth 2 times daily with meals. Given by Dr. Calderon cephALEXin 500 MG capsule Take 1 capsule by mouth every 6 hours for 7 days. Cetirizine 10 MG tablet Take 1 tablet by mouth daily as needed for Allergies. OTC Clindamycin Phos-Benzoyl Perox 1.2-3.75 % Gel Apply 1 Application topically daily. Given by Dermatology Dr. Dejesus Clopidogrel 75 MG tablet Take 1 tablet by mouth daily. cyanocobalamin 1000 MCG tablet Take 1 tablet by mouth daily. Chew 1 tab q daily Escitalopram 10 MG tablet Take 2 tablets by mouth daily. Evolocumab (Repatha SureClick) 140 MG/ML Solution Auto-injector injection Inject 1 mL under the skin every 14 days. fenofibrate 160 MG tablet Take 1 tablet by mouth daily. Folic acid 1 MG tablet Take 1 tablet by mouth daily. Lisinopril 5 MG tablet Take 1 tablet by mouth daily. Cancel previous refills Mupirocin 2 % ointment Apply topical TID for 7 days Pantoprazole (Protonix) [address] tablet DR Take 1 tablet by mouth 2 times daily (take before meals). traZODone 100 MG tablet Take 1 tablet by mouth at bedtime. triamterene-hydrochlorothiazide (Dyazide) 37.5-25 MG per capsule Take 1 capsule by mouth daily. Cancel previous refills Past Medical History: Diagnosis Date A-fib Anemia low Fe Arrhythmia Arthritis ASCUS of cervix with negative high risk HPV Asthma B12 deficiency Carotid stenosis, bilateral-Right 30%, and left 60% Central retinal artery occlusion of left eye CKD (chronic kidney disease) stage 3, GFR 30-59 ml/min-3a CLL (chronic lymphocytic leukemia) 2011 [id number] on 09-30-2020 Depression Diffuse non-Hodgkin's lymphoma chemotherapy Folate deficiency GERD (gastroesophageal reflux disease) Gout pt denies Hiatal hernia pt denies Hyperglycemia Hyperlipidemia LDL goal <70 Hypertension Hyponatremia Liver disease fatty liver Non-Hodgkin lymphoma 2011 [place] (obstructive sleep apnea) PVC's (premature ventricular contractions) 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 (blindness) Past Surgical History: Procedure Laterality Date INJECTION NERVE OTHER PERIPHERAL Left 12/16/2022 Laterality: Left; Surgeon: Isreal Sigala MD; Location: [facility] GUIDANCE FLUOROSCOPIC NEEDLE OR CATHETER PLACEMENT FOR SPINE INJECTION ADD-ON PX Left 12/16/2022 Laterality: Left; Surgeon: Isreal Sigala MD; Location: [facility] OR SUSPENSION URETHRA/URETHROVESICAL FEMALE OPEN W/ SYNTHETIC MATERIAL (SLING) Midline 08/31/2022 Laterality: Midline; Surgeon: Dariusz Rangel MD; Location: [facility] OR CYSTOURETHROSCOPY W/ DILATION BLADDER Midline 08/31/2022 Laterality: Midline; Surgeon: Dariusz Rangel MD; Location: [facility] OR COLPORRHAPHY ANTEROPOSTERIOR REPAIR CYSTOCELE & RECTOCELE Midline 08/31/2022 Laterality: Midline; Surgeon: Dariusz Rangel MD; Location: [facility] OR ARTHRODESIS SACROILIAC JOINT MINIMALLY INVASIVE W/ TRANSFIXING DEVICE Left 06/17/2022 Laterality: Left; Surgeon: Isreal Sigala MD; Location: [facility] OR GUIDANCE FLUOROSCOPIC NEEDLE OR CATHETER PLACEMENT FOR SPINE INJECTION ADD-ON PX Left 06/17/2022 Laterality: Left; Surgeon: Isreal Sigala MD; Location: [facility] OR EGD W/ DILATION BALLOON N/A 12/01/2021 Laterality: N/A; Surgeon: Indra Parrish DO; Location: [facility] SHOULDER ARTHROSCOPY Left 06/18/2021 REMOVAL CENTRAL VENOUS ACCESS DEVICE TUNNELED W/ PORT PUMP Left 09/13/2019 Laterality: Left; Surgeon: Eduardo Muñoz MD; Location: [facility] INTERVENTIONAL RADIOLOGY (VIR) EGD W/ DILATION BALLOON N/A 06/30/2018 Laterality: N/A; Surgeon: Indra Parrish DO; Location: [facility] EGD DIAGNOSTIC N/A 04/07/2018 Laterality: N/A; Surgeon: Wilner Leigh MD; Location: [facility] COLONOSCOPY DIAGNOSTIC N/A 04/07/2018 Laterality: N/A; Surgeon: Wilner Leigh MD; Location: [facility] KNEE REPLACEMENT Right 05/2015 done at [place]--CC ARTHROPLASTY KNEE TOTAL Right 04/2015 INSERTION PICC W/ PORT PUMP 2014 power port COLONOSCOPY DIAGNOSTIC 2006 SALPINGO-OOPHORECTOMY OPEN N/A 1983 APPENDECTOMY OPEN 1983 TONSILLECTOMY ADENOIDECTOMY 1968 EGD DIAGNOSTIC 10 months ago Social History Occupational History Employer: RETIRED Tobacco Use Smoking status: Former Packs/day: 0.75 Years: 35.00 Total pack years: 26.25 Types: Cigarettes Quit date: 04/23/2013 Years since quittin.0 Smokeless tobacco: Never Vaping Use Vaping Use: Never used Substance and Sexual Activity Alcohol use: Yes Alcohol/week: 2.0 standard drinks of alcohol Types: 2 Cans of beer per week Comment: occassionally drinks beer Drug use: Never Sexual activity: Not Currently control/protection: Menopause ROS: Review of Systems Nurse Note: Review of Systems Constitutional: Negative for fatigue, fever and unexpected weight change. HENT: No difficulty swallowing No change in voice Respiratory: Negative for cough, shortness of breath and wheezing. Cardiovascular: Negative for chest pain, palpitations and leg swelling. Gastrointestinal: Negative for constipation, diarrhea, nausea and vomiting. Neurological: Negative for tremors, weakness and numbness. Psychiatric/Behavioral: Negative for sleep disturbance. The patient is not nervous/anxious. Nursing Assessment: Physical Exam Objective: Vitals: 05/05/23 1232 BP: 140/80 Pulse: 70 Objective: Vascular: Dorsalis pedis and posterior tibial pulses are readilly palpable and graded at 2/4 bilateral. There are no ischemic skin changes evident to bilateral lower extremities. Hair growth is present on legs and toes. Dermatological: There is pain and localized redness and an associated incurvated nail with hypertrophied labial nail fold appreciated to the offending left distal dorsal 4th toe. Positive localized cellulitis with apparent deep abcess is present. Otherwise, no open lesions or signs of bacterial infection to the remainder of either foot. No lymphangitis noted. Neurological: Epicritic sensation including sharp-dull and light touch are intact and without focalmotor or sensory deficit bilateral lower extremities. Normal muscle mass appreciated to both the lower extremity and foot bilateral. The patient can heel and toe walk with ease as well as arise from a seated position unassisted. Musculoskeletal: There are no significant foot or ankle deformities bilaterally. Manual muscle testing is 5/5 for all lower extremity groups tested. Assessment: Elena was seen today for infection . Diagnoses and all orders for this visit: Cellulitis and abscess of toe of left foot - MRI FOOT LEFT WITHOUT CONTRAST; Future - CULTURE WOUND; Future - MA DRAIN SKIN ABSCESS COMPLIC/MULTIPLE Plan: Patient was seen and evaluated today Reviewed [facility] notes Reviewed xray that were performed by [facility] Dr. Uriarte independent interpretation/Impression of results: Fracture of the proximal lateral distal phalanx. And apparent transverse fracture of the distal part of the 4th distal phalanx. Concern for bone infection with overlying wound I have discussed the treatment options with the patient conservative and surgical. Due to the acutenature of the infection and probable deep abscess, I recommended an incision and drainage of the abscess with removal of the total nail to access the complex abscess. I discussed the risks of procedure, which include, but are not limited to delayed healing,recurrence, amputation, infection and adverse reaction to the lidocaine. I also discussed expected recovery course with the patient. The patient gave verbal and written consent for the procedure. Elena was given specific post-operative careinstructions in their after visit summary. See procedure note for details A culture was taken today. Continue on keflex Her culture from the wound clinic should be back by tomorrow- will adjust abx as needed MRI ordered- concern for OM The patient was advised to limit their activity over the next day or so. The dressing can be removed in 24 hours, after that it should be covered with a Band-Aid and antibiotic cream. The wound will not be left open to air. The patient can shower with the bandage on. No soaking in a bath tub until the wound is healed. I will see the patient back in 2 week's time for reevaluation. Should she have any problems before then, they should contact me at the office. MA DRAIN SKIN ABSCESS COMPLIC/MULTIPLE Performed by: Dawn Uriarte DPM Authorized by: Dawn Uriarte DPM [facility] Protocol Verbal consent obtained Written consent obtained Risks and benefits discussed Consent given by: patient Immediately prior to procedure a time out was called to verify the correct patient, procedure, equipment, technical support 1 software engineer and site/side marked as required. Anesthesia: Local anesthesia used: yes Local: 1% Lidocaine Post-procedure Patient tolerated the procedure well with no immediate complications I performed the procedure myself Additional Notes After a complete physical I did decide that the patient needed a nail avulsion to evacuate the abscess. All risks benefits and complications were explained to the patient in detail. I did explain to her that this is a temporary procedure and it is possible to have recurrence of the ingrown nail. The patient had all of her questions answered to her satisfaction and then signed an informed consent.No guarantees were made. The Nail and surrounding soft tissue was prepped with chlorahexide and then injected with 3cc of 1%lidocaine plain in a H-block fashion. Once, appropriate anesthesia was obtained, a freer was used on the proximal skin fold to free the skin from the nail The left 4th nail was removed An incision was made over the PIPJ where the ulcer was present. No bri purulenc There was no exposed bone. But I could probe to bone. A currette was then used to make sure that there were no remaining pieces of nail. The area was flushed again with normal sterile saline, antibiotic cream and a bulky dressing was placed on the toe. The patient was advised to limit their activity over the next day or so. The dressing can be removed in 24 hours, after that it should be covered with a Band-Aid and antibiotic cream. I will see the patient back in 2 weeks time for re-evaluation. Should she have any problems before then, they should contact my office. [facility] History of Present illness Narrative* CARO Knutson - 05/02/2023 1:55 PM EDTAssociated Order(s): INCISION AND DRAINAGE Post-Procedure Diagnose(s): Cellulitis of fourth toe of left foot URGENT CARE eNCOUnter CHIEF COMPLAINT Other (Infection in foot, started over 2 weeks ago) MICHELINE Galeano is a 63 y.o. female who presents today for complaint of infection of her left 4thtoe the past 2 weeks. Patient was initially seen at pain clinic and prescribed Keflex. Patient states she finished course of antibiotics and then while at her appointment for her knee the orthopedic p nicole started her on clindamycin. She is still on this medication. Patient reports increased pain and swelling over the past 2 days. She was supposed to have an appointment with Podiatry today butdid not realize it was a gallium illness the appointment. Patient is scheduled to follow-up with podiatry on of this week. Patient is not a diabetic. REVIEW OF SYSTEMS Review of Systems As documented in HPI. A thorough 12 point review of systems was evaluated including Constitutional and general appearance, Head, Face, Ears, Eyes, Nose, Throat, Cardiovascular, Pulmonary, GI, , Skin, and Psychiatric andwas found to be negative without symptoms or signs consistent with acute pathology with the exception of that specifically documented in the HPI section of this documentation. PAST MEDICAL HISTORY Past Medical History: Diagnosis Date A-fib Anemia low Fe Arrhythmia Arthritis ASCUS of cervix with negative high risk HPV Asthma B12 deficiency Carotid stenosis, bilateral-Right 30%, and left 60% Central retinal artery occlusion of left eye CKD (chronic kidney disease) stage 3, GFR 30-59 ml/min-3a CLL (chronic lymphocytic leukemia) 2011 [id number] on 09-30-2020 Depression Diffuse non-Hodgkin's lymphoma chemotherapy Folate deficiency GERD (gastroesophageal reflux disease) Gout pt denies Hiatal hernia pt denies Hyperglycemia Hyperlipidemia LDL goal <70 Hypertension Hyponatremia Liver disease fatty liver Non-Hodgkin lymphoma 2011 PERCY (obstructive sleep apnea) PVC's (premature ventricular contractions) 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 (blindness) SURGICAL HISTORY Past Surgical History: Procedure Laterality Date INJECTION NERVE OTHER PERIPHERAL Left 12/16/2022 Laterality: Left; Surgeon: Isreal Sigala MD; Location: [facility] OR GUIDANCE FLUOROSCOPIC NEEDLE OR CATHETER PLACEMENT FOR SPINE INJECTION ADD-ON PX Left 12/16/2022 Laterality: Left; Surgeon: Isreal Sigala MD; Location: [facility] OR SUSPENSION URETHRA/URETHROVESICAL FEMALE OPEN W/ SYNTHETIC MATERIAL (SLING) Midline 08/31/2022 Laterality: Midline; Surgeon: Dariusz Rangel MD; Location: [facility] OR CYSTOURETHROSCOPY W/ DILATION BLADDER Midline 08/31/2022 Laterality: Midline; Surgeon: Dariusz Rangel MD; Location: [facility] OR COLPORRHAPHY ANTEROPOSTERIOR REPAIR CYSTOCELE & RECTOCELE Midline 08/31/2022 Laterality: Midline; Surgeon: Dariusz Rangel MD; Location: [facility] OR ARTHRODESIS SACROILIAC JOINT MINIMALLY INVASIVE W/ TRANSFIXING DEVICE Left 06/17/2022 Laterality: Left; Surgeon: Isreal Sigala MD; Location: [facility] OR GUIDANCE FLUOROSCOPIC NEEDLE OR CATHETER PLACEMENT FOR SPINE INJECTION ADD-ON PX Left 06/17/2022 Laterality: Left; Surgeon: Isreal Sigala MD; Location: [facility] OR EGD W/ DILATION BALLOON N/A 12/01/2021 Laterality: N/A; Surgeon: Indra Parrish DO; Location: [facility] SHOULDER ARTHROSCOPY Left 06/18/2021 REMOVAL CENTRAL VENOUS ACCESS DEVICE TUNNELED W/ PORT PUMP Left 09/13/2019 Laterality: Left; Surgeon: Eduardo Muñoz MD; Location: [facility] INTERVENTIONAL RADIOLOGY (VIR) EGD W/ DILATION BALLOON N/A 06/30/2018 Laterality: N/A; Surgeon: Indra Parrish DO; Location: [facility] EGD DIAGNOSTIC N/A 04/07/2018 Laterality: N/A; Surgeon: Wilner Leigh MD; Location: [facility] COLONOSCOPY DIAGNOSTIC N/A 04/07/2018 Laterality: N/A; Surgeon: Wilner Leigh MD; Location: [facility] KNEE REPLACEMENT Right 05/2015 done at [place]--CC ARTHROPLASTY KNEE TOTAL Right 04/2015 INSERTION PICC W/ PORT PUMP 2014 power port COLONOSCOPY DIAGNOSTIC 2006 SALPINGO-OOPHORECTOMY OPEN N/A 1983 APPENDECTOMY OPEN 1983 TONSILLECTOMY ADENOIDECTOMY 1968 EGD DIAGNOSTIC 10 months ago CURRENT MEDICATIONS Current Outpatient Medications Medication Sig Dispense Refill Albuterol (Ventolin HFA) 108 (90 Base) MCG/ACT Aero Soln inhaler Inhale 2 puffs every 6 hours as needed for Wheezing. 18 g 0 Allopurinol 100 MG tablet Take 1 tablet by mouth daily. 90 tablet 3 apixaban 5 MG tablet Take 1 tablet by mouth every 12 hours. 180 tablet 3 buPROPion (Wellbutrin XL) 300 MG tablet XL Take 1 tablet by mouth every morning before breakfast. 90 tablet 0 carveDILOL (Coreg) 12.5 MG tablet Take 1 tablet by mouth 2 times daily with meals. Given by Dr. Calderon cephALEXin 500 MG capsule Take 1 capsule by mouth every 6 hours for 7 days. 28 capsule 0 Cetirizine 10 MG tablet Take 1 tablet by mouth daily as needed for Allergies. OTC Clindamycin Phos-Benzoyl Perox 1.2-3.75 % Gel Apply 1 Application topically daily. Given by Dermatology Dr. Deejsus Clopidogrel 75 MG tablet Take 1 tablet by mouth daily. 90 tablet 3 cyanocobalamin 1000 MCG tablet Take 1 tablet by mouth daily. Chew 1 tab q daily 90 tablet 0 Escitalopram 10 MG tablet Take 2 tablets by mouth daily. Evolocumab (Repatha SureClick) 140 MG/ML Solution Auto-injector injection Inject 1 mL under the skin every 14 days. 2 mL 11 fenofibrate 160 MG tablet Take 1 tablet by mouth daily. 90 tablet 3 Folic acid 1 MG tablet Take 1 tablet by mouth daily. 90 tablet 0 Lisinopril 5 MG tablet Take 1 tablet by mouth daily. Cancel previous refills 90 tablet 0 Pantoprazole (Protonix) [address] tablet DR Take 1 tablet by mouth 2 times daily (take before meals). 180 tablet 0 traZODone 100 MG tablet Take 1 tablet by mouth at bedtime. 90 tablet 0 triamterene-hydrochlorothiazide (Dyazide) 37.5-25 MG per capsule Take 1 capsule by mouth daily. Cancel previous refills 90 capsule 3 Mupirocin 2 % ointment Apply topical TID for 7 days 30 g 0 No current facility-administered medications for this visit. ALLERGIES Allergies Allergen Reactions Nsaids Has CKD-3a FAMILY HISTORY Family History Problem Relation Age of Onset Hypertension Mother Lipid Disorder Mother Depression Mother Clotting Disorder Mother Dementia Father Arrhythmia Father A-Fib Breast Cancer Maternal Aunt Cancer- Other Maternal Uncle melanoma Ovarian Cancer Paternal Aunt Cancer Paternal Aunt brain Lung Cancer Maternal Grandfather Hypertension Son Lipid Disorder Daughter No known problems Daughter Autism Grandson SOCIAL HISTORY Social History Socioeconomic History Marital status: Spouse name: Not on file Number of children: Not on file Years of education: Not on file Highest education level: Not on file Occupational History Not on file Tobacco Use Smoking status: Former Packs/day: 0.75 Years: 35.00 Total pack years: 26.25 Types: Cigarettes Quit date: 04/23/2013 Years since quittin.0 Smokeless tobacco: Never Vaping Use Vaping Use: Never used Substance and Sexual Activity Alcohol use: Yes Alcohol/week: 2.0 standard drinks of alcohol Types: 2 Cans of beer per week Comment: occassionally drinks beer Drug use: Never Sexual activity: Not Currently control/protection: Menopause Other Topics Concern Service Not Asked Blood Transfusions Not Asked Caffeine Concern Not Asked Occupational Exposure Not Asked Hobby Hazards Not Asked Sleep Concern Not Asked Stress Concern Not Asked Weight Concern Not Asked Special Diet Not Asked Back Care Not Asked Exercise Not Asked Bike Helmet Not Asked Seat Belt Not Asked Domestic Violence No Social History Narrative Not on file Social Determinants of Health Financial Resource Strain: Not on file Food Insecurity: Not on file Transportation Needs: Not on file Physical Activity: Not on file Stress: Not on file Social Connections: Not on file Intimate Partner Violence: Not on file Housing Stability: Not on file PHYSICAL EXAM BP 145/63 (BP Location: Right arm, BP Position: Sitting) Pulse 60 Temp 98.5 F (36.9 C) (Temporal) Resp 18 Ht 1.651 m (5' 5) Wt 95.3 kg (210 lb) SpO2 96% BMI 34.95 kg/m Smoking StatusFormer Physical Exam General exam: Patient is well-developed and well-nourished in no distress. Patient does not appear acutely ill or toxic. Pulmonary exam: No respiratory distress. Respiratory rate is normal. No stridor. Breath sounds are equal bilaterally. There are no wheezes, rales, or rhonchi noted. Cardiac exam: The cardiac rate and rhythm are normal. No significant murmurs, rubs, or gallops. Peripheral pulses are normal. Abdominal exam: Abdomen is soft and nondistended. No pulsatile masses. There is no local tenderness. No rebound or guarding noted. Skin and soft tissue: + erythema of left 4th toe with purulent fluctuant area on distal toe. + erythema extending to dorsal mid foot. Musculoskeletal exam: tenderness of left foot and left 4th toe. 2+ DP and PT pulses. Neurologic: Patient is alert and appropriate. Normal speech. Normal symmetric strength and tone in all extremities. Psychiatric: Normal adult with appropriate demeanor and interpersonal interaction. Is oriented to person, place, and time. Diagnosis, Assessment & Plan: Elena was seen today for other. Diagnoses and all orders for this visit: Cellulitis of fourth toe of left foot - XR FOOT LEFT 3 VIEWS; Future - CULTURE WOUND; Future Other orders - Mupirocin 2 % ointment; Apply topical TID for 7 days - INCISION AND DRAINAGE INCISION AND DRAINAGE Date/Time: 05/02/2023 1:55 PM Performed by: CARO Knutson Authorized by: CARO Knutson Indications: Type: Abscess Location: Body area: Lower extremity Location details: Left fourth toe Procedure Details: Needle gauge: 18 Incision depth: Dermal Complexity: Simple Drainage: Purulent and serosanguinous Wound treatment: Wound left open Packing material: None Dressing: non-adherent dressing Patient tolerance: Patient tolerated the procedure well with no immediate complications 63 yo female presents with cellulitis and abscess of left forth toe. I spoke with Dr. Uriarte aboutthis patient. He advised to I and D the abscess on the toe in obtaining a culture. Patient will continue clindamycin and mupirocin ointment also prescribed. She will follow-up with podiatry as scheduled. Advised to return or go to ER if worsening symptoms. X-ray also obtained and did not visualize any evidence of osteomyelitis. CARO Knutson 05/03/2023 documented in this [facility]07-07-[facility]23 History of Present illness Narrative* Zoltan Subramanian LPN - 04/29/2023 4:20 PM EDT Ortho Nurse - Established Patient Intake Room#: 2 Update for Left TKA on 05-16-23, pain of 10 at times, just finished Cephalexin today for a left big toe infection Date: 04/29/2023 4:58 PM Patient: Elena Galeano MR#: [id number] : 1960 Age: 63 y.o. Referring Physician: Self, Self Insurance: Payor: MEDICARE / Plan: MEDICARE A AND B / Product Type: *No Product type* / Chief Complaint Patient presents with Left Knee - Condition Update Visit Vitals Ht 1.651 m (5' 5) Wt 96.6 kg (213 lb) BMI 35.45 kg/m Pain Presence of Pain: complains of pain/discomfort Pain Location: knee, left Select Pain Scale: DVPRS (Defense and Veterans Pain Rating Scale) (Adult- Cognitively Intact) Pain Location: knee, left Select Pain Scale: DVPRS (Defense and Veterans Pain Rating Scale) (Adult- Cognitively Intact) Recent Labs No results found for: CRP No results found for: SEDRATE Lab Results Component Value Date WBC 4.8 04/21/2023 HGB 12.7 04/21/2023 HCT 37.2 04/21/2023 PLATELET 182 04/21/2023 MCV 97.3 04/21/2023 History Past Medical History: Diagnosis Date Non-Hodgkin lymphoma 2011 CLL (chronic lymphocytic leukemia) 2011 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 (blindness) A-fib Anemia low Fe Arrhythmia Arthritis ASCUS of cervix with negative high risk HPV Asthma B12 deficiency Carotid stenosis, bilateral-Right 30%, and left 60% Central retinal artery occlusion of left eye CKD (chronic kidney disease) stage 3, GFR 30-59 ml/min-3a [id number] on 09-30-2020 Depression Diffuse non-Hodgkin's lymphoma chemotherapy Folate deficiency GERD (gastroesophageal reflux disease) Gout pt denies Hiatal hernia pt denies Hyperglycemia Hyperlipidemia LDL goal <70 Hypertension Hyponatremia Liver disease fatty liver PERCY (obstructive sleep apnea) PVC's (premature ventricular contractions) Past Surgical History: Procedure Laterality Date INJECTION NERVE OTHER PERIPHERAL Left 12/16/2022 Laterality: Left; Surgeon: Isreal Sigala MD; Location: [facility] GUIDANCE FLUOROSCOPIC NEEDLE OR CATHETER PLACEMENT FOR SPINE INJECTION ADD-ON PX Left 12/16/2022 Laterality: Left; Surgeon: Isreal Sigala MD; Location: [facility] OR SUSPENSION URETHRA/URETHROVESICAL FEMALE OPEN W/ SYNTHETIC MATERIAL (SLING) Midline 08/31/2022 Laterality: Midline; Surgeon: Dariusz Rangel MD; Location: [facility] OR CYSTOURETHROSCOPY W/ DILATION BLADDER Midline 08/31/2022 Laterality: Midline; Surgeon: Dariusz Rangel MD; Location: [facility] OR COLPORRHAPHY ANTEROPOSTERIOR REPAIR CYSTOCELE & RECTOCELE Midline 08/31/2022 Laterality: Midline; Surgeon: Dariusz Rangel MD; Location: [facility] OR ARTHRODESIS SACROILIAC JOINT MINIMALLY INVASIVE W/ TRANSFIXING DEVICE Left 06/17/2022 Laterality: Left; Surgeon: Isreal Sigala MD; Location: [facility] OR GUIDANCE FLUOROSCOPIC NEEDLE OR CATHETER PLACEMENT FOR SPINE INJECTION ADD-ON PX Left 06/17/2022 Laterality: Left; Surgeon: Isreal Sigala MD; Location: [facility] OR EGD W/ DILATION BALLOON N/A 12/01/2021 Laterality: N/A; Surgeon: Indra Parrish DO; Location: [facility] SHOULDER ARTHROSCOPY Left 06/18/2021 REMOVAL CENTRAL VENOUS ACCESS DEVICE TUNNELED W/ PORT PUMP Left 09/13/2019 Laterality: Left; Surgeon: Eduardo Muñoz MD; Location: [facility] INTERVENTIONAL RADIOLOGY (VIR) EGD W/ DILATION BALLOON N/A 06/30/2018 Laterality: N/A; Surgeon: Indra Parrish DO; Location: [facility] EGD DIAGNOSTIC N/A 04/07/2018 Laterality: N/A; Surgeon: Wilner Leigh MD; Location: [facility] COLONOSCOPY DIAGNOSTIC N/A 04/07/2018 Laterality: N/A; Surgeon: Wilner Leigh MD; Location: [facility] KNEE REPLACEMENT Right 05/2015 done at [place]--CC ARTHROPLASTY KNEE TOTAL Right 04/2015 INSERTION PICC W/ PORT PUMP 2014 power port COLONOSCOPY DIAGNOSTIC 2006 SALPINGO-OOPHORECTOMY OPEN N/A 1983 APPENDECTOMY OPEN 1983 TONSILLECTOMY ADENOIDECTOMY 1967 EGD DIAGNOSTIC 10 months ago Family History: Her family history includes Arrhythmia in her father; Autism in her grandson; Breast Cancer in her maternal aunt; Cancer in her paternal aunt; Cancer- Other in her maternal uncle; Clotting Disorder in her mother; Dementia in her father; Depression in her mother; Hypertension in her mother and son; Lipid Disorder in her daughter and mother; Lung Cancer in her maternal grandfather; No known problems in her daughter; Ovarian Cancer in her paternal aunt. Social History: Her reports that she quit smoking about 10 years ago. Her smoking use included cigarettes. She has a 26.25 pack-year smoking history. She has never used smokeless tobacco. She reportscurrent alcohol use of about 2.0 standard drinks of alcohol per week. She reports that she does notuse drugs. Outpatient Medications Prior to Visit Medication Sig Dispense Refill Albuterol (Ventolin HFA) 108 (90 Base) MCG/ACT Aero Soln inhaler Inhale 2 puffs every 6 hours as needed for Wheezing. 18 g 0 Allopurinol 100 MG tablet Take 1 tablet by mouth daily. 90 tablet 3 apixaban 5 MG tablet Take 1 tablet by mouth every 12 hours. 180 tablet 3 buPROPion (Wellbutrin XL) 300 MG tablet XL Take 1 tablet by mouth every morning before breakfast. 90 tablet 0 carveDILOL (Coreg) 12.5 MG tablet Take 1 tablet by mouth 2 times daily with meals. Given by Dr. Calderon Cetirizine 10 MG tablet Take 1 tablet by mouth daily as needed for Allergies. OTC Clindamycin Phos-Benzoyl Perox 1.2-3.75 % Gel Apply 1 Application topically daily. Given by Dermatology Dr. Dejesus Clopidogrel 75 MG tablet Take 1 tablet by mouth daily. 90 tablet 3 cyanocobalamin 1000 MCG tablet Take 1 tablet by mouth daily. Chew 1 tab q daily 90 tablet 0 Escitalopram 10 MG tablet Take 2 tablets by mouth daily. Evolocumab (Repatha SureClick) 140 MG/ML Solution Auto-injector injection Inject 1 mL under the skin every 14 days. 2 mL 11 fenofibrate 160 MG tablet Take 1 tablet by mouth daily. 90 tablet 3 Folic acid 1 MG tablet Take 1 tablet by mouth daily. 90 tablet 0 Lisinopril 5 MG tablet Take 1 tablet by mouth daily. Cancel previous refills 90 tablet 0 Pantoprazole (Protonix) [address] tablet DR Take 1 tablet by mouth 2 times daily (take before meals). 180 tablet 0 traZODone 100 MG tablet Take 1 tablet by mouth at bedtime. 90 tablet 0 triamterene-hydrochlorothiazide (Dyazide) 37.5-25 MG per capsule Take 1 capsule by mouth daily. Cancel previous refills 90 capsule 3 cephALEXin 500 MG capsule Take 1 capsule by mouth every 6 hours for 10 days. (Patient not taking: Reported on 04/29/2023) 40 capsule 0 No facility-administered medications prior to visit. Current Outpatient Medications: Albuterol (Ventolin HFA) 108 (90 Base) MCG/ACT Aero Soln inhaler, Inhale 2 puffs every 6 hours as needed for Wheezing., Disp: 18 g, Rfl: 0 Allopurinol 100 MG tablet, Take 1 tablet by mouth daily., Disp: 90 tablet, Rfl: 3 apixaban 5 MG tablet, Take 1 tablet by mouth every 12 hours., Disp: 180 tablet, Rfl: 3 buPROPion (Wellbutrin XL) 300 MG tablet XL, Take 1 tablet by mouth every morning before breakfast.,Disp: 90 tablet, Rfl: 0 carveDILOL (Coreg) 12.5 MG tablet, Take 1 tablet by mouth 2 times daily with meals. Given by Dr. Calderon, Disp: , Rfl: Cetirizine 10 MG tablet, Take 1 tablet by mouth daily as needed for Allergies. OTC, Disp: , Rfl: Clindamycin Phos-Benzoyl Perox 1.2-3.75 % Gel, Apply 1 Application topically daily. Given by Dermatology Dr. Dejesus, Disp: , Rfl: Clopidogrel 75 MG tablet, Take 1 tablet by mouth daily., Disp: 90 tablet, Rfl: 3 cyanocobalamin 1000 MCG tablet, Take 1 tablet by mouth daily. Chew 1 tab q daily, Disp: 90 tablet, Rfl: 0 Escitalopram 10 MG tablet, Take 2 tablets by mouth daily., Disp: , Rfl: Evolocumab (Repatha SureClick) 140 MG/ML Solution Auto-injector injection, Inject 1 mL under the skin every 14 days., Disp: 2 mL, Rfl: 11 fenofibrate 160 MG tablet, Take 1 tablet by mouth daily., Disp: 90 tablet, Rfl: 3 Folic acid 1 MG tablet, Take 1 tablet by mouth daily., Disp: 90 tablet, Rfl: 0 Lisinopril 5 MG tablet, Take 1 tablet by mouth daily. Cancel previous refills, Disp: 90 tablet, Rfl: 0 Pantoprazole (Protonix) [address] tablet DR, Take 1 tablet by mouth 2 times daily (take before meals)., Disp: 180 tablet, Rfl: 0 traZODone 100 MG tablet, Take 1 tablet by mouth at bedtime., Disp: 90 tablet, Rfl: 0 triamterene-hydrochlorothiazide (Dyazide) 37.5-25 MG per capsule, Take 1 capsule by mouth daily. Cancel previous refills, Disp: 90 capsule, Rfl: 3 cephALEXin 500 MG capsule, Take 1 capsule by mouth every 6 hours for 10 days. (Patient not taking: Reported on 04/29/2023), Disp: 40 capsule, Rfl: 0 Allergies: She is allergic to nsaids. * Gonsalo Blackwood MD - 04/29/2023 4:20 PM EDT HPI: Patient is here today to be evaluated for left knee pain. She is a pleasant 63 y.o. female. She is here today as a self referral. Primary complaint is pain and discomfort. She has experienced a progressive decline in physical function and quality of life secondary to the discomfort in the leftknee. She presents with a highly complex array of symptoms upon exam today. The more she is on it, the more it hurts. She has locking, popping, catching, clicking and instability. She is fearful of falling. She has attempted and failed formal PT and injections including both steroid and gel injections. She reports she recently had a toe infection and finished script of Keflex today - under the care of Dr. Uriarte. Her knee pain is a 10/10 upon exam today. 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 PHYSICAL EXAM: This is an alert, oriented, and age-appropriate female. She is in no distress. Pleasant and cooperative. EXTREMITIES: The upper extremities have no gross deformities. Normal stability.Skin Intact. 5/5 motor. Intact sensation. Normal neurovascular status. Normal coordination. The lower extremities have no gross deformities. Normal stability. Skin Intact. 5/5 motor. Intact sensation. Normal neurovascular status. Normal coordination. Range of motion upon exam today is 5-110. Correctable varus alignment. Crepitus throughout the arc of motion. Painful range of motion. Full motion of hip. No pain. No impingement. No instability. Contralateral leg has normal alignment. Full motion.No pain. No impingement. No instability. IMAGING: Previous plain film radiographs were reviewed. Multiple views of the knee demonstrate moderate to severe medial compartmental arthritis of the knee with loss of joint space, subchondral sclerosis, osteophyte formation, and yrvc-yy-[id number] contact. IMPRESSION: 1.) Severe symptomatic end-stage arthritis, left knee. 2.) History of stroke, patient reported from two weeks ago, residual left eye blindness. 3.) A-fib. 4.) Great toe infection, left foot - under the care of Dr. Uriarte. 5.) Stage III CKD. PLAN: We have discussed in great detail the nature of the diagnosis, the natural history and expected progression which is likely worsening pain, instability with risks of falls, and additional jointwear and or bone loss. We have discussed the options for treatment including both conservative and operative treatments. We have discussed the risks, benefits, and alternatives to each treatment. Elena is interested in surgical management in the form of a left total knee replacement. Elena understands that the potential benefits are reduced pain, improved stability and improved function. Elena also understands that the major limb and/or life threatening risks include, but are not limited to: bleeding, infection, neurovascular injury including foot drop or paralysis, dislocation, component failure, implant loosening, ligament or tendon disruption, fracture, stiffness, chronic pain, chronic disability, need for further surgery, blood clots in the extremities or lungs, stroke, heart attack, loss of limb, and ultimately loss of life. 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 Despite these risks, the patient would like to proceed with surgical planning. Today, we will initiate the pre-surgical process including nasal MRSA screening, scheduling an appointment for [facility] and the potential surgical date, and reviewing and signing the consent forms. Refill of Keflex was given. Upcoming appt with Dr. Uriarte on 05/05/23 for toe evaluation. Will require presurgical clearance from podiatry standpoint. I have reviewed the findings of my clinical staff below and agree with their assessment. Vitals: 04/29/23 1650 Weight: 96.6 kg (213 lb) Height: 1.651 m (5' 5) Pain Presence of Pain: complains of pain/discomfort Pain Location: knee, left Select Pain Scale: DVPRS (Defense and Veterans Pain Rating Scale) (Adult- Cognitively Intact) Pain Location: knee, left Select Pain Scale: DVPRS (Defense and Veterans Pain Rating Scale) (Adult- Cognitively Intact) Recent Labs No results found for: CRP No results found for: SEDRATE Lab Results Component Value Date WBC 4.8 04/21/2023 HGB 12.7 04/21/2023 HCT 37.2 04/21/2023 PLATELET 182 04/21/2023 MCV 97.3 04/21/2023 Past Medical History: Diagnosis Date A-fib Anemia low Fe Arrhythmia Arthritis ASCUS of cervix with negative high risk HPV Asthma B12 deficiency Carotid stenosis, bilateral-Right 30%, and left 60% Central retinal artery occlusion of left eye CKD (chronic kidney disease) stage 3, GFR 30-59 ml/min-3a CLL (chronic lymphocytic leukemia) 2011 [id number] on 09-30-2020 Depression Diffuse non-Hodgkin's lymphoma chemotherapy Folate deficiency GERD (gastroesophageal reflux disease) Gout pt denies Hiatal hernia pt denies Hyperglycemia Hyperlipidemia LDL goal <70 Hypertension Hyponatremia Liver disease fatty liver Non-Hodgkin lymphoma 2011 PERCY (obstructive sleep apnea) PVC's (premature ventricular contractions) 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 (blindness) Past Surgical History: Procedure Laterality Date INJECTION NERVE OTHER PERIPHERAL Left 12/16/2022 Laterality: Left; Surgeon: Isreal Sigala MD; Location: [facility] OR GUIDANCE FLUOROSCOPIC NEEDLE OR CATHETER PLACEMENT FOR SPINE INJECTION ADD-ON PX Left 12/16/2022 Laterality: Left; Surgeon: Isreal Sigala MD; Location: [facility] OR SUSPENSION URETHRA/URETHROVESICAL FEMALE OPEN W/ SYNTHETIC MATERIAL (SLING) Midline 08/31/2022 Laterality: Midline; Surgeon: Dariusz Rangel MD; Location: [facility] OR CYSTOURETHROSCOPY W/ DILATION BLADDER Midline 08/31/2022 Laterality: Midline; Surgeon: Dariusz Rangel MD; Location: [facility] OR COLPORRHAPHY ANTEROPOSTERIOR REPAIR CYSTOCELE & RECTOCELE Midline 08/31/2022 Laterality: Midline; Surgeon: Dariusz Rangel MD; Location: [facility] OR ARTHRODESIS SACROILIAC JOINT MINIMALLY INVASIVE W/ TRANSFIXING DEVICE Left 06/17/2022 Laterality: Left; Surgeon: Isreal Sigala MD; Location: [facility] OR GUIDANCE FLUOROSCOPIC NEEDLE OR CATHETER PLACEMENT FOR SPINE INJECTION ADD-ON PX Left 06/17/2022 Laterality: Left; Surgeon: Isreal Sigala MD; Location: [facility] OR EGD W/ DILATION BALLOON N/A 12/01/2021 Laterality: N/A; Surgeon: Indra Parrish DO; Location: [facility] SHOULDER ARTHROSCOPY Left 06/18/2021 REMOVAL CENTRAL VENOUS ACCESS DEVICE TUNNELED W/ PORT PUMP Left 09/13/2019 Laterality: Left; Surgeon: Eduardo Muñoz MD; Location: [facility] INTERVENTIONAL RADIOLOGY (VIR) EGD W/ DILATION BALLOON N/A 06/30/2018 Laterality: N/A; Surgeon: Indra Parrish DO; Location: [facility] EGD DIAGNOSTIC N/A 04/07/2018 Laterality: N/A; Surgeon: Wilner Leigh MD; Location: [facility] COLONOSCOPY DIAGNOSTIC N/A 04/07/2018 Laterality: N/A; Surgeon: Wilner Leigh MD; Location: [facility] KNEE REPLACEMENT Right 05/2015 done at [place]--CC ARTHROPLASTY KNEE TOTAL Right 04/2015 INSERTION PICC W/ PORT PUMP 2014 power port COLONOSCOPY DIAGNOSTIC 2006 SALPINGO-OOPHORECTOMY OPEN N/A 1983 APPENDECTOMY OPEN 1983 TONSILLECTOMY ADENOIDECTOMY 1967 EGD DIAGNOSTIC 10 months ago Family History Problem Relation Age of Onset Hypertension Mother Lipid Disorder Mother Depression Mother Clotting Disorder Mother Dementia Father Arrhythmia Father A-Fib Breast Cancer Maternal Aunt Cancer- Other Maternal Uncle melanoma Ovarian Cancer Paternal Aunt Cancer Paternal Aunt brain Lung Cancer Maternal Grandfather Hypertension Son Lipid Disorder Daughter No known problems Daughter Autism Grandson Social History Socioeconomic History Marital status: Tobacco Use Smoking status: Former Packs/day: 0.75 Years: 35.00 Total pack years: 26.25 Types: Cigarettes Quit date: 04/23/2013 Years since quittin.0 Smokeless tobacco: Never Vaping Use Vaping Use: Never used Substance and Sexual Activity Alcohol use: Yes Alcohol/week: 2.0 standard drinks of alcohol Types: 2 Cans of beer per week Comment: occassionally drinks beer Drug use: Never Sexual activity: Not Currently control/protection: Menopause Current Outpatient Medications: Albuterol (Ventolin HFA) 108 (90 Base) MCG/ACT Aero Soln inhaler, Inhale 2 puffs every 6 hours as needed for Wheezing., Disp: 18 g, Rfl: 0 Allopurinol 100 MG tablet, Take 1 tablet by mouth daily., Disp: 90 tablet, Rfl: 3 apixaban 5 MG tablet, Take 1 tablet by mouth every 12 hours., Disp: 180 tablet, Rfl: 3 buPROPion (Wellbutrin XL) 300 MG tablet XL, Take 1 tablet by mouth every morning before breakfast.,Disp: 90 tablet, Rfl: 0 carveDILOL (Coreg) 12.5 MG tablet, Take 1 tablet by mouth 2 times daily with meals. Given by Dr. Calderon, Disp: , Rfl: Cetirizine 10 MG tablet, Take 1 tablet by mouth daily as needed for Allergies. OTC, Disp: , Rfl: Clindamycin Phos-Benzoyl Perox 1.2-3.75 % Gel, Apply 1 Application topically daily. Given by Dermatology Dr. Dejesus, Disp: , Rfl: Clopidogrel 75 MG tablet, Take 1 tablet by mouth daily., Disp: 90 tablet, Rfl: 3 cyanocobalamin 1000 MCG tablet, Take 1 tablet by mouth daily. Chew 1 tab q daily, Disp: 90 tablet, Rfl: 0 Escitalopram 10 MG tablet, Take 2 tablets by mouth daily., Disp: , Rfl: Evolocumab (Repatha SureClick) 140 MG/ML Solution Auto-injector injection, Inject 1 mL under the skin every 14 days., Disp: 2 mL, Rfl: 11 fenofibrate 160 MG tablet, Take 1 tablet by mouth daily., Disp: 90 tablet, Rfl: 3 Folic acid 1 MG tablet, Take 1 tablet by mouth daily., Disp: 90 tablet, Rfl: 0 Lisinopril 5 MG tablet, Take 1 tablet by mouth daily. Cancel previous refills, Disp: 90 tablet, Rfl: 0 Pantoprazole (Protonix) [address] tablet DR, Take 1 tablet by mouth 2 times daily (take before meals)., Disp: 180 tablet, Rfl: 0 traZODone 100 MG tablet, Take 1 tablet by mouth at bedtime., Disp: 90 tablet, Rfl: 0 triamterene-hydrochlorothiazide (Dyazide) 37.5-25 MG per capsule, Take 1 capsule by mouth daily. Cancel previous refills, Disp: 90 capsule, Rfl: 3 cephALEXin 500 MG capsule, Take 1 capsule by mouth every 6 hours for 10 days. (Patient not taking: Reported on 04/29/2023), Disp: 40 capsule, Rfl: 0 Allergies Allergen Reactions Nsaids Has CKD-3a [facility] History of Present illness Narrative* Fernando Davison MD - 04/27/2023 3:30 PM EDT DAILY PROGRESS NOTE Admit Date: (Not on file) Date of Evaluation: :13 PM [facility] @RRHLOS@ IMPRESSION AND PLAN: 63 y/o female with history of CKD III, CLL, depression, and CVA is here for CKD care. 1) CKD IIIA Cr 1.05 -> 0.81 Urine pr/cr 0.5 Renal US disclosed no evidence of an intrarenal mass or hydronephrosis. Multiple echogenic foci in the left kidney are typical of calculi. The urinary bladder appears unremarkable. Will get UA Will get renal panel. 2) HTN SBP 120s Continue with lisinopril and Hydrochlorothiazide. 3) Gout Uric acid 8.4 Continue with allopurinol Will repeat uric acid. 4) Transaminitis ALT 37 / AST 41 Will get RUQ US. Will repeat LFT. SUBJECTIVE: Patient seen and examined. Chart, medications, labs reviewed. Office Visit on 04/21/2023 Component Date Value Ref Range Status MAGNESIUM 04/21/2023 1.3 (L) 1.6 - 2.3 MG/DL Final PHOSPHORUS 04/21/2023 3.7 2.5 - 4.5 MG/DL Final LABS Labs-ABGs @ABGROUNDS@ Labs-CBC @CBCBRIEFROUNDS@ Labs-Chem 7(PMC) @[facility]@ Labs-Coags WBC (WHITE BLOOD COUNT) Date Value Ref Range Status 04/21/2023 4.8 3.6 - 11.0 10*3/uL Final 02/14/2023 5.0 3.6 - 11.0 10*3/uL Final 11/22/2022 7.1 3.6 - 11.0 10*3/uL Final HEMOGLOBIN (HGB) Date Value Ref Range Status 04/21/2023 12.7 12.0 - 16.0 G/DL Final 02/14/2023 13.1 12.0 - 16.0 G/DL Final 11/22/2022 12.7 12.0 - 16.0 G/DL Final HEMATOCRIT (HCT) Date Value Ref Range Status 04/21/2023 37.2 36.0 - 48.0 % Final 02/14/2023 39.1 36.0 - 48.0 % Final 11/22/2022 37.7 36.0 - 48.0 % Final PLATELET COUNT Date Value Ref Range Status 04/21/2023 182 130 - 400 10*3/uL Final 02/14/2023 223 130 - 400 10*3/uL Final 11/22/2022 211 130.0 - 400.0 10*3/uL Final SODIUM Date Value Ref Range Status 04/21/2023 134 (L) 137 - 145 MMOL/L Final 02/14/2023 137 136 - 145 MMOL/L Final 11/22/2022 135 (L) 136 - 145 MMOL/L Final CHLORIDE Date Value Ref Range Status 04/21/2023 99 98 - 107 MMOL/L Final Comment: Please note: Triglyceride levels of 600mg/dL or higher may positively bias chloride results by approximately 2.1 mmol 02/14/2023 98 98 - 107 MMOL/L Final 11/22/2022 94 (L) 98 - 107 MMOL/L Final BUN Date Value Ref Range Status 04/21/2023 13 7 - 20 MG/DL Final 02/14/2023 15 7 - 20 MG/DL Final 11/22/2022 22 (H) 7 - 20 MG/DL Final POTASSIUM Date Value Ref Range Status 04/21/2023 4.0 3.5 - 5.1 MMOL/L Final 02/14/2023 4.4 3.5 - 5.1 MMOL/L Final 11/22/2022 3.9 3.5 - 5.1 MMOL/L Final CREATININE SERUM Date Value Ref Range Status 04/21/2023 0.81 0.70 - 1.20 MG/DL Final 02/14/2023 1.05 (H) 0.52 - 1.04 MG/DL Final 11/22/2022 0.93 0.52 - 1.04 MG/DL Final Glucose Date Value Ref Range Status 04/21/2023 116 (H) 70 - 100 MG/DL Final Comment: NORMAL <100 mg/dL PREDIABETES 101-126 mg/dL DIABETES 126 mg/dL or higher 02/14/2023 107 (H) 70 - 100 MG/DL Final Comment: NORMAL <100 mg/dL PREDIABETES 101-126 mg/dL DIABETES 126 mg/dL or higher 11/22/2022 105 (H) 70 - 100 MG/DL Final Comment: NORMAL <100 mg/dL PREDIABETES 101-126 mg/dL DIABETES 126 mg/dL or higher PT Date Value Ref Range Status 04/21/2023 14.0 11.8 - 14.4 SEC Final 08/09/2022 13.4 11.8 - 14.4 SEC Final PT/INR (POC Device) Date Value Ref Range Status 09/13/2019 1.0 0.9 - 1.1 Final PTT Date Value Ref Range Status 08/09/2022 29.5 22.4 - 34.7 SEC Final Comment: CARDIAC AND PE/DVT THERAPUTIC RANGE 69-97 SEC VASCULAR/THREATENED LIMB THERAPUTIC RANGE 80-112 SEC Testing performed at [place], [place] [address] PROTEIN, TOTAL Date Value Ref Range Status 04/21/2023 6.1 (L) 6.3 - 8.2 GM/DL Final 02/14/2023 6.6 6.3 - 8.2 GM/DL Final 11/22/2022 6.9 6.3 - 8.2 GM/DL Final Albumin Date Value Ref Range Status 04/21/2023 3.6 3.5 - 5.0 G/dl Final 02/14/2023 3.6 3.5 - 5.0 G/dl Final 11/22/2022 4.0 3.5 - 5.0 G/dl Final AST Date Value Ref Range Status 04/21/2023 41 (H) 14 - 36 IU/L Final 02/14/2023 28 15 - 41 IU/L Final 11/22/2022 35 15 - 41 IU/L Final ALT Date Value Ref Range Status 04/21/2023 37 (H) <35 IU/L Final 02/14/2023 26 14 - 54 IU/L Final 11/22/2022 30 14 - 54 IU/L Final BILIRUBIN, TOTAL Date Value Ref Range Status 04/21/2023 0.4 0.2 - 1.3 MG/DL Final CALCIUM Date Value Ref Range Status 04/21/2023 8.4 8.4 - 10.2 MG/DL Final 02/14/2023 9.3 8.4 - 10.2 MG/DL Final 11/22/2022 9.5 8.4 - 10.2 MG/DL Final PHOSPHORUS Date Value Ref Range Status 04/21/2023 3.7 2.5 - 4.5 MG/DL Final MAGNESIUM Date Value Ref Range Status 04/21/2023 1.3 (L) 1.6 - 2.3 MG/DL Final 02/14/2023 1.7 1.6 - 2.3 MG/DL Final Lab Results Component Value Date CREATURINE 22.6 04/21/2023 CREATSERUM 0.81 04/21/2023 BUN 13 04/21/2023 SODIUM 134 (L) 04/21/2023 POTASSIUM 4.0 04/21/2023 CHLORIDE 99 04/21/2023 CO2 25 04/21/2023 ROS: Constitution: No fever, no chill HEENT: No headache, no sinus issues CV: No chest pain, no palpitation Lung: No cough, No SOB Abd: No diarrhea, no constipation Neuro: No seizure, no loss of consciousness Heme: No bleeding, no bruise PHYSICAL EXAM: Wt Readings from Last 3 Encounters: 04/27/23 96.6 kg (213 lb) 04/27/23 97 kg (213 lb 14.4 oz) 04/21/23 98.4 kg (217 lb) Temp Readings from Last 3 Encounters: 04/21/23 97.8 F (36.6 C) 02/14/23 97 F (36.1 C) 12/16/22 97.5 F (36.4 C) (Temporal) BP Readings from Last 3 Encounters: 04/27/23 130/74 04/27/23 136/80 04/21/23 151/68 Pulse Readings from Last 3 Encounters: 04/27/23 78 04/27/23 61 04/21/23 67 Gen: NAD, lying in bed, conversant HEENT: Atraumatic, PERRLA, moist membrane CV: RRR, nl S1 and S2, no m/g/r Lung: CTAB, no wheezing, no crackle Abd: +BS, nontender, no distended Ext: No rash, no clubbing, no cyanosis. No edema. Neuro: CNII-XII grossly intact, 5/5 strength, normal tone Skin: Warm and dry [facility]* Diagnosis Stage 3a chronic kidney disease- Primary Primary osteoarthritis of left knee Primary localized osteoarthrosis, lower leg documented in [facility] encounter [facility] History of Present illness Narrative* Shae Whittington, LINTER OPERATOR-RESIDENTIAL CARE OFFICER - 04/21/2023 12:25 PM EDT Images from the original note were not included. HPI Elena Galeano female 1960 presents to the [facility] with Chief Complaint Patient presents with Toe Pain Toe pain L foot draining pus, since January but worsened yesterday Patient presents with pain in the 4th toe, wound that is draining pus. She states this issue started back in January, however comes and goes. The pain started again yesterday and is worse with ambulation and weight-bearing. She cannot recall any specific injury. No fevers. History Allergies Allergen Reactions Nsaids Has CKD-3a Current Outpatient Medications Medication Sig Albuterol (Ventolin HFA) 108 (90 Base) MCG/ACT Aero Soln inhaler Inhale 2 puffs every 6 hours as needed for Wheezing. Allopurinol 100 MG tablet Take 1 tablet by mouth daily. apixaban 5 MG tablet Take 1 tablet by mouth every 12 hours. buPROPion (Wellbutrin XL) 300 MG tablet XL Take 1 tablet by mouth every morning before breakfast. carveDILOL (Coreg) 12.5 MG tablet Take 1 tablet by mouth 2 times daily with meals. Given by Dr. Calderon cetirizine 10 MG Chew Tab Chew 1 tablet daily. Clindamycin Phos-Benzoyl Perox 1.2-3.75 % Gel Apply 1 Application topically daily. Given by Dermatology Dr. Dejesus Clopidogrel 75 MG tablet Take 1 tablet by mouth daily. cyanocobalamin 1000 MCG tablet Take 1 tablet by mouth daily. Chew 1 tab q daily Evolocumab (Repatha SureClick) 140 MG/ML Solution Auto-injector injection Inject 1 mL under the skin every 14 days. fenofibrate 160 MG tablet Take 1 tablet by mouth daily. Folic acid 1 MG tablet Take 1 tablet by mouth daily. Lisinopril 5 MG tablet Take 1 tablet by mouth daily. Cancel previous refills Pantoprazole (Protonix) [address] brian DR Take 1 tablet by mouth 2 times daily (take before meals). traZODone 100 MG tablet Take 1 tablet by mouth at bedtime. triamterene-hydrochlorothiazide (Dyazide) 37.5-25 MG per capsule Take 1 capsule by mouth daily. Cancel previous refills budesonide (Pulmicort Flexhaler) 180 MCG/ACT inhaler Inhale 1 puff 2 times daily. Rinse mouth with water after each dose (Patient not taking: Reported on 04/12/2023) cephALEXin 500 MG capsule Take 1 capsule by mouth every 6 hours for 10 days. Cetirizine 10 MG tablet Take 1 tablet by mouth daily as needed for Allergies. OTC Family History Problem Relation Age of Onset Hypertension Mother Lipid Disorder Mother Depression Mother Clotting Disorder Mother Dementia Father Arrhythmia Father A-Fib Breast Cancer Maternal Aunt Cancer- Other Maternal Uncle melanoma Ovarian Cancer Paternal Aunt Cancer Paternal Aunt brain Lung Cancer Maternal Grandfather Hypertension Son Lipid Disorder Daughter No known problems Daughter Autism Grandson Past Medical History: Diagnosis Date A-fib Anemia low Fe Arrhythmia Arthritis ASCUS of cervix with negative high risk HPV Asthma B12 deficiency Carotid stenosis, bilateral-Right 30%, and left 60% Central retinal artery occlusion of left eye CKD (chronic kidney disease) stage 3, GFR 30-59 ml/min-3a CLL (chronic lymphocytic leukemia) 2011 [id number] on 09-30-2020 Depression Diffuse non-Hodgkin's lymphoma chemotherapy Folate deficiency GERD (gastroesophageal reflux disease) Gout pt denies Hiatal hernia pt denies Hyperglycemia Hyperlipidemia LDL goal <70 Hypertension Hyponatremia Liver disease fatty liver Non-Hodgkin lymphoma 2011 PERCY (obstructive sleep apnea) PVC's (premature ventricular contractions) 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 (blindness) Past Surgical History: Procedure Laterality Date INJECTION NERVE OTHER PERIPHERAL Left 12/16/2022 Laterality: Left; Surgeon: Isreal Sigala MD; Location: [facility] OR GUIDANCE FLUOROSCOPIC NEEDLE OR CATHETER PLACEMENT FOR SPINE INJECTION ADD-ON PX Left 12/16/2022 Laterality: Left; Surgeon: Isreal Sigala MD; Location: [facility] OR SUSPENSION URETHRA/URETHROVESICAL FEMALE OPEN W/ SYNTHETIC MATERIAL (SLING) Midline 08/31/2022 Laterality: Midline; Surgeon: Dariusz Rangel MD; Location: [facility] OR CYSTOURETHROSCOPY W/ DILATION BLADDER Midline 08/31/2022 Laterality: Midline; Surgeon: Dariusz Rangel MD; Location: [facility] OR COLPORRHAPHY ANTEROPOSTERIOR REPAIR CYSTOCELE & RECTOCELE Midline 08/31/2022 Laterality: Midline; Surgeon: Dariusz Rangel MD; Location: [facility] OR ARTHRODESIS SACROILIAC JOINT MINIMALLY INVASIVE W/ TRANSFIXING DEVICE Left 06/17/2022 Laterality: Left; Surgeon: Isreal Sigala MD; Location: [facility] OR GUIDANCE FLUOROSCOPIC NEEDLE OR CATHETER PLACEMENT FOR SPINE INJECTION ADD-ON PX Left 06/17/2022 Laterality: Left; Surgeon: Isreal Sigala MD; Location: [facility] OR EGD W/ DILATION BALLOON N/A 12/01/2021 Laterality: N/A; Surgeon: Indra Parrish DO; Location: [facility] SHOULDER ARTHROSCOPY Left 06/18/2021 REMOVAL CENTRAL VENOUS ACCESS DEVICE TUNNELED W/ PORT PUMP Left 09/13/2019 Laterality: Left; Surgeon: Eduardo Muñoz MD; Location: [facility] INTERVENTIONAL RADIOLOGY (VIR) EGD W/ DILATION BALLOON N/A 06/30/2018 Laterality: N/A; Surgeon: Indra Parrish DO; Location: [facility] EGD DIAGNOSTIC N/A 04/07/2018 Laterality: N/A; Surgeon: Wilner Leigh MD; Location: [facility] COLONOSCOPY DIAGNOSTIC N/A 04/07/2018 Laterality: N/A; Surgeon: Wilner Leigh MD; Location: [facility] KNEE REPLACEMENT Right 05/2015 done at [place]--CC ARTHROPLASTY KNEE TOTAL Right 04/2015 INSERTION PICC W/ PORT PUMP 2014 power port COLONOSCOPY DIAGNOSTIC 2006 SALPINGO-OOPHORECTOMY OPEN N/A 1983 APPENDECTOMY OPEN 1984 TONSILLECTOMY ADENOIDECTOMY 1968 EGD DIAGNOSTIC 10 months ago Social History Socioeconomic History Marital status: Spouse name: Not on file Number of children: Not on file Years of education: Not on file Highest education level: Not on file Occupational History Not on file Tobacco Use Smoking status: Former Packs/day: 0.75 Years: 35.00 Total pack years: 26.25 Types: Cigarettes Quit date: 04/23/2013 Years since quittin.0 Smokeless tobacco: Never Vaping Use Vaping Use: Never used Substance and Sexual Activity Alcohol use: Yes Alcohol/week: 2.0 standard drinks of alcohol Types: 2 Cans of beer per week Comment: occassionally drinks beer Drug use: Never Sexual activity: Not Currently control/protection: Menopause Other Topics Concern Service Not Asked Blood Transfusions Not Asked Caffeine Concern Not Asked Occupational Exposure Not Asked Hobby Hazards Not Asked Sleep Concern Not Asked Stress Concern Not Asked Weight Concern Not Asked Special Diet Not Asked Back Care Not Asked Exercise Not Asked Bike Helmet Not Asked Seat Belt Not Asked Domestic Violence Not Asked Social History Narrative Not on file Social Determinants of Health Financial Resource Strain: Not on file Food Insecurity: Not on file Transportation Needs: Not on file Physical Activity: Not on file Stress: Not on file Social Connections: Not on file Intimate Partner Violence: Not on file Housing Stability: Not on file ROS Review of Systems 8 systems reviewed with patient, negative unless specifically mentioned in history of present illness PHYSICAL EXAM Visit Vitals BP 151/68 Pulse 67 Temp 97.8 F (36.6 C) Resp 16 Ht 1.651 m (5' 5) Wt 98.4 kg (217 lb) SpO2 97% BMI 36.11 kg/m Physical Exam Vitals and nursing note reviewed. Constitutional: General: She is not in acute distress. Appearance: Normal appearance. She is well-developed. She is not ill-appearing or diaphoretic. HENT: Head: Normocephalic. Nose: Nose normal. Mouth/Throat: Mouth: Mucous membranes are moist. Cardiovascular: Pulses: Dorsalis pedis pulses are 2+ on the left side. Pulmonary: Effort: Pulmonary effort is normal. No respiratory distress. Musculoskeletal: Cervical back: Neck supple. Feet: Feet: Comments: Small pustule medial 4th toe. No drainage now. Skin: General: Skin is warm and dry. Capillary Refill: Capillary refill takes less than 2 seconds. Neurological: General: No focal deficit present. Mental Status: She is alert and oriented to person, place, and time. Psychiatric: Mood and Affect: Mood normal. Behavior: Behavior normal. RESULTS No results found for this or any previous visit (from the past 1 hour(s)). ASSESSMENT/PLAN 1. Toe infection Orders Placed This Encounter PODIATRY cephALEXin 500 MG capsule Started keflex. Provided basin and Hibiclens for daily soaks. She will follow up with Podiatry. If symptoms worsen patient was advised to follow up in our office, primary care provider or the Emergency Dept. Benefits, Risks, Contraindications, and Complications of recommended treatments were explained. The patient understands and agrees to proceed with plan. Shae Whittington, YOAN 04/21/2023 documented [facility] this [facility] History of Present illness Narrative* Dwight Sy RN - 04/21/2023 8:30 AM EDT PAT- ADDITIONAL QUESTIONS Reviewed medication list with patient, asked and added any additional medicines, vitamins, supplements and diet pills or appetite suppressants to the patient Med Review. Also Reconciled Medications from outside sources to Med Review. Patient verified Med Review is accurate. yes HISTORY OF BLOOD CLOTS No personal history; pt states mother had DVT, unknown circumstance and taking eliquis ACTIVITY TOLERANCE (MET LEVEL) >4mets CHEST PAIN (SEE ADDITIONAL CHEST PAIN QUESTIONNAIRE IF APPLICABLE) no HISTORY OF HEART CATH/STENT PLACEMENT no HISTORY OF ANESTHESIA COMPLICATION No personal history; family h/o of PONV MEDICAL CLEARANCE, CARDIOLOGY CLEARANCE Dr Calderon 05/03 Dr Paredes 05/13 DIFFICULT IV PLACEMENT no LIMB RESTRICTIONS Prefer the right arm MEDICAL IMPLANTS (DIABETIC, NERVE STIMULATORS, POWER PORTS, LOOP RECORDER, ETC) Right TKA, pins in SI joint HISTORY OF ANTIBIOTIC RESISTANT BACTERIAL INFECTION (MRSA, C-DIFF) no VISION (glasses, contacts, or other impairments) glasses HEARING AIDS OR ANY TROUBLE HEARING no DIFFICULTY SWALLOWING no DENTAL APPLIANCES OR PROBLEMS (dentures, partials, loose teeth, missing teeth, broken teeth, caps or crowns) Denies any problems with teeth or oral abscess/infection. Crowns x 2 BETA BENEDICTO USE yes STEROIDS IN THE PAST 2 YEARS no HISTORY OF BLOOD TRANSFUSION/REACTION no CULTURAL OR PROTESTANT BELIEFS THAT WILL AFFECT CARE no DIETARY RESTRICTIONS no CONCERNS FOR PERSONAL SAFETY no Have you been diagnosed with a concussion in the past 6 months? no Have you tested positive for COVID 19? (if pt does breathing is not back to baseline please order CXR) 2019; breathing back to baseline Have you had your COVID vaccination? no ADVANCE DIRECTIVES Living will and health care POA-not on file IF PATIENT HAS NOT BEEN DIAGNOSED WITH SLEEP APNEA PLEASE COMPLETE STOP-BANG STOP Do you SNORE loudly (louder than talking or loud enough to be heard through closed doors)? +PERCY Not currently using CPAP-planning to have mouthpiece made Has anyone OBSERVED you stop breathing during your sleep? Do you often feel TIRED, fatigued, or sleepy during daytime? Do you have or are you being treated for high blood PRESSURE? BMI more than 35kg/m2? AGE over 50 years old? NECK circumference > 16 inches (40 cm)? GENDER: Male? TOTAL SCORE PT ACCEPTED REFERRAL High risk of PERCY: Yes 5-8 Intermediate risk of PERCY: Yes 3-4 Low risk of PERCY: Yes 0-2 * See DEPARTMENT OF SURGERY AND ANESTHESIA REFERRAL FOR SLEEP STUDY AND/OR PULMONARY CONSULT paper form signed by patient in chart. Phone review done to verify procedure and surgery date with patient. Reviewed pt history and medications with patient. Patient made aware that we will go over pre-op med instructions during PAT visitprior to attending joint camp. Encouraged pt to bring booklet from Dr Blackwood's office. Pt states understanding. documented in this encounter[facility] Instructions* Patient Instructions* Dwight Sy RN - 04/21/2023 8:30 AM EDT Images from the original note were not included. Dr Blackwood's office will call you for your arrival time, 1-2 business days before your scheduled surgery. Please review your surgery checklist and bring your guide or booklet the day of surgery. Pre-Admission Testing Dept. [phone] Call if you have any changes in your medications, questions about your medication instructions or have additional health information you want added to your chart. Refer to the Pre-Op Bathing Instructions and use the wipes the night before surgery on pages 21-22. Please refer to pages 10-11 for additional medicines and supplements to avoid prior to surgery. STOP any NSAIDS (Ibuprofen, Motrin, Aleve, Advil, etc.), fish oil, other supplements, energy drinksand essential oils 7 days before your surgery or as instructed by your physician. STOP diet pills and appetite suppressants 14 days before surgery or as instructed by your physician. No alcohol during the 48-hours prior to your surgery. No illicit drugs during the 5 days prior to your surgery. Nothing by mouth after midnight except for water and Gatorade/powerade which can be consumed up until you leave for the hospital. DIRECTIONS: Park in the front main lot facing [address]. Enter through the front entrance and sign in at the Registration Desk at the [facility] lobby. Thank you for allowing us the privilege to care for you! Please record date and time of your medications on this sheet and bring this with you on the day ofsurgery. Yellow - take the day of surgery [place] - hold according to the doctor's instructions or pre-admission testing instructions Current Outpatient Medications Medication Instructions Albuterol (Ventolin HFA) 108 (90 Base) MCG/ACT Aero Soln inhaler Inhale 2 puffs every 6 hours as needed for Wheezing. CONTINUE AND USE THE MORNING OF SURGERY. PLEASE BRING WITH YOU THE DAY OF SURGERY LAST DOSE: DATE TIME Allopurinol 100 MG tablet Take 1 tablet by mouth daily. CONTINUE but DO NOT take the morning of surgery LAST DOSE: DATE TIME apixaban 5 MG tablet Take 1 tablet by mouth every 12 hours. ASK YOUR SURGEON, PRIMARY CARE DOCTOR OR POWERHOUSE OPERATOR (IF YOU SEE ONE), IF YOU SHOULD HOLD THIS MEDICATION PRIOR TO SURGERY LAST DOSE: DATE TIME buPROPion (Wellbutrin XL) 300 MG tablet XL Take 1 tablet by mouth every morning before breakfast. CONTINUE but DO NOT take the morning of surgery LAST DOSE: DATE TIME carveDILOL (Coreg) 12.5 MG tablet Take 1 tablet by mouth 2 times daily with meals. Given by Dr. Calderon CONTINUE AND TAKE THE MORNING OF SURGERY WITH SIP OF WATER LAST DOSE: DATE TIME Cetirizine 10 MG tablet Take 1 tablet by mouth daily as needed for Allergies. OTC CONTINUE but DO NOT take the morning of surgery LAST DOSE: DATE TIME Clindamycin Phos-Benzoyl Perox 1.2-3.75 % Gel Apply 1 Application topically daily. Given by Dermatology Dr. Dejesus CONTINUE but DO NOT APPLY the morning of surgery LAST DOSE: DATE TIME Clopidogrel 75 MG tablet Take 1 tablet by mouth daily. ASK YOUR SURGEON, PRIMARY CARE DOCTOR OR POWERHOUSE OPERATOR (IF YOU SEE ONE), IF YOU SHOULD HOLD THIS MEDICATION PRIOR TO SURGERY LAST DOSE: DATE TIME cyanocobalamin 1000 MCG tablet Take 1 tablet by mouth daily. Chew 1 tab q daily STOP 7 DAYS BEFORE YOUR SURGERY LAST DOSE: DATE TIME Evolocumab (Repatha Fabianoick) 140 MG/ML Solution Auto-injector injection Inject 1 mL under the skin every 14 days. ASK YOUR SURGEON, PRIMARY CARE DOCTOR OR POWERHOUSE OPERATOR (IF YOU SEE ONE), IF YOU SHOULD HOLD THIS MEDICATION PRIOR TO SURGERY LAST DOSE: DATE TIME fenofibrate 160 MG tablet Take 1 tablet by mouth daily. CONTINUE but DO NOT take the morning of surgery LAST DOSE: DATE TIME Folic acid 1 MG tablet Take 1 tablet by mouth daily. CONTINUE but DO NOT take the morning of surgery LAST DOSE: DATE TIME Lisinopril 5 MG tablet Take 1 tablet by mouth daily. Cancel previous refills CONTINUE but DO NOT take the morning of surgery LAST DOSE: DATE TIME Pantoprazole (Protonix) [address] tablet DR Take 1 tablet by mouth 2 times daily (take before meals). CONTINUE AND TAKE THE MORNING OF SURGERY WITH SIP OF WATER LAST DOSE: DATE TIME traZODone 100 MG tablet Take 1 tablet by mouth at bedtime. CONTINUE but DO NOT take the morning of surgery LAST DOSE: DATE TIME triamterene-hydrochlorothiazide (Dyazide) 37.5-25 MG per capsule Take 1 capsule by mouth daily. Cancel previous refills CONTINUE but DO NOT take the morning of surgery LAST DOSE: DATE TIME documented in this [facility] [place]06-29-[facility]23 Miscellaneous Notes* Addendum Note - Dragan Colmenares RN - 04/21/2023 8:30 AM EDTAddended by: DRAGAN COLMENARES on: 04/21/2023 11:02 AM Modules accepted: Orders documented in this [facility] [place]06-29-2023 Note* Addendum Note - Dragan Colmenares RN - 04/21/2023 8:30 AM EDTAddended by: DRAGAN COLMENARES on: 04/21/2023 11:02 AM Modules accepted: Orders [facility] History of Present illness Narrative* Tom Srivastava DMD - 04/07/2023 12:47 PM EDT Images from the original note were not included. Head and Neck Brush Dentistry, Oral Surgery, & Maxillofacial Prosthetics 04/07/2023 Elena Galeano SUBJECTIVE: This 63 year old female presents for consultation at the request of Eddi Randhawa MD for evaluation of a possible oral mandibular advancement device for the treatment of PERCY. TIP Click here to document Marion Score and Neck Circumference (Refresh note to update). (No need to delete will not show in completed note) :[id number]} ESS today = 9 Bed partner? YES Snoring? YES Waking up gasping? YES Used CPAP in the past? YES Wake up during night? YES Daytime fatigue? YES Activities affected by fatigue? YES Hours of sleep per night? 5 Date of last dental exam? 03/30/23 History of TMD? NO Current jaw/tooth pain? NO ACTIVE PROBLEM LIST Follicular Lymphoma (Hcc) Arthralgia Chest Discomfort Pvc's (Premature Ventricular Contractions) Elevated Liver Function Tests Dyslipidemia Postmenopausal Bleeding Right Knee Pain Tear of Meniscus of Right Knee Obesity (Bmi 30-39.9) Mixed Hyperlipidemia Essential Hypertension Arthritis of Left Acromioclavicular Joint Biceps Tendinitis of Left Upper Extremity S/P Arthroscopy of Shoulder Ischemic Stroke (Hcc) Central Artery Occlusion of Retina, Left Percy (Obstructive Sleep Apnea) Depressive Disorder Obesity, Class II, Bmi 35-39.9 Central Retinal Artery Occlusion, Left Eye Sudden Loss of Vision, Left Headache, Temporal After-Cataract With Vision Obscured of Both Eyes Carotid Stenosis, Bilateral Anxiety Current Outpatient Medications on File Prior to Visit Medication Sig lisinopril (ZESTRIL, PRINIVIL) 10 mg tablet Take 1 tablet by mouth once daily. carvedilol (COREG) 25 mg tablet Take 1 tablet by mouth twice daily with meals. (Patient taking differently: Take 12.5 mg by mouth twice daily with meals.) triamterene-hydroCHLOROthiazide (MAXZIDE-25) 37.5-25 mg per tablet Take 1 tablet by mouth once daily. clopidogrel (PLAVIX) 75 mg tablet Take 1 tablet by mouth once daily for 21 doses. traZODone (DESYREL) 100 mg tablet Take [address] (PROTONIX) 40 mg tablet Take 40 mg by mouth. buPROPion XL (WELLBUTRIN XL) 300 mg 24 hr tablet Take 300 mg by mouth. REPATHA SURECLICK 140 mg/mL pen injector Inject 1 mL under the skin every 14 days. albuterol HFA (PROVENTIL HFA, VENTOLIN HFA) 90 mcg/actuation inhaler Inhale 2 Puffs as instructed every 6 hours as needed. No current facility-administered medications on file prior to visit. ALLERGIES Allergen Reactions Seasonal Allergies Other: See Comments sneezing and stuffy nose OBJECTIVE: REVIEW OF SLEEP STUDY RESULTS: DATE MEAN O2% NICOLAS O2% % BELOW 90% SUP AHI OFF SUP AHI AVG AHI AVG HR MAX HR 10/28/22 93 89 0.1 7.4 5.8 5.9 75 89 General appearance: pleasant, no distress. Cortes Tongue Position: 2 Uvula: Med Palatopharyngeal crowding: mild Maxillary janna: no Mandibular lingual janna: no Ridging of buccal mucosa: mild Scalloping of tongue: mod Bruxism: mod DATE 04/07/2023 Mandibular ROM 45mm Midline At midline Right lateral 11mm Left lateral 11mm Protrusive ROM 10mm Overjet 2.5mm Overbite 2.5mm Angle class Right I Angle class Left I Crossbite N Recession N Mobility N Open contacts 02/26,06/01,,, TMJ/muscle exam: left sided mild click on opening - no pain Radiographic Findings: Panorex taken today Condyles appear symmetric Maxillary sinuses are clear bilaterally Alveolar bone levels show less than 50% bone loss ASSESSMENT: This pleasant 63 year old female has a history of PERCY diagnosed by Dr. Randhawa. The medical history was reviewed and discussed with the patient and it was determined the patient is a candidate for a mandibular advancement device. Discussed the risks, benefits, alternatives, limitations, and reasonable expectations of oral appliance therapy with specific discussion focused on changes in occlusion, tooth movement and mobility, damage to teeth, facial pain, and TMD. Elena Mcgill [place] expressed understanding and agreed to proceed. All questions answered. PLAN: The patient will move forward with insurance predetermination and will return for impressions and records pending approval. The treatment plan consists of impressions and delivery of the oral appliance followed by continual evaluation of the patient's mandibular position until follow-up sleep studyto confirm efficacy. The opinions/findings will be communicated to the referring provider via shared electronic medical record. Tom Srivastava DMD [facility] History of Present illness Narrative* Fernie Paredes DO - 02/14/2023 1:30 PM EDT History of Present Illness HISTORY OF PRESENT ILLNESS: 63 y.o. female presents with complaints of: Encounter Diagnoses Name Primary? Type 2 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 disease, without long-term current use of insulin Yes Stage 3a chronic kidney disease Hyperlipidemia LDL goal <70 Idiopathic chronic gout without tophus, unspecified site Hypertriglyceridemia B12 deficiency Chronic gastritis without bleeding, unspecified gastritis type Hyponatremia Folate deficiency Hepatomegaly Gastroesophageal reflux disease without esophagitis Vitamin D deficiency Fatty liver Bilateral carotid artery stenosis-30% Right, 60% Left Paroxysmal atrial fibrillation Bradycardia Essential hypertension Internal and external hemorrhoids without complication PVC's (premature ventricular contractions) Chronic obstructive pulmonary disease, unspecified COPD type Pulmonary emphysema, unspecified emphysema type PERCY on CPAP-Off BiPAP due to intolerance Chronic sinusitis, unspecified location Non-seasonal allergic rhinitis, unspecified trigger Moderate persistent asthma without complication Hiatal hernia Cerebrovascular accident (CVA), unspecified mechanism Central retinal artery occlusion of left eye Ischemic stroke Hypertensive heart disease without heart failure Duodenal diverticulum Esophagitis, Clyo grade A Esophageal stenosis Combined forms of age-related cataract, bilateral Allergic conjunctivitis of both eyes Chronic midline low back pain without sciatica Lacunar infarction Hypermetropia of left eye Unspecified amblyopia, right eye Primary osteoarthritis of both knees Spondylosis of lumbar region without myelopathy or radiculopathy Other idiopathic scoliosis, lumbar region Spinal stenosis of lumbar region without neurogenic claudication Primary osteoarthritis of both hips-Mild Blepharitis of upper eyelids of both eyes, unspecified type Pinguecula of both eyes Regular astigmatism of left eye Anemia, unspecified type HNP (herniated nucleus pulposus), lumbar-Multi level Spondylosis of cervical region without myelopathy or radiculopathy Renal cyst, right Mixed stress and urge incontinence Seborrheic keratosis, inflamed-Left thigh-S/P Excision CLL (chronic lymphocytic leukemia) [id number] on 09-30-2020 Macrocytosis Elevated LFTs Anxiety and depression Former smoker-Quit 2011 Insomnia, unspecified type Obesity (BMI 30.0-34.9) Fatty food intolerance Bilateral dry eyes Irregular astigmatism of right eye Fatigue, unspecified type Urinary frequency ASCUS of cervix with negative high risk HPV History of ETOH abuse Osteopenia determined by x-ray Vision loss of left eye Chronic anticoagulation Family history of Alzheimer's disease Pseudophakia History of cataract extraction, unspecified laterality Myopia of right eye Presbyopia Low HDL (under 40) Asymptomatic postmenopausal state Type 2 DM, CKD-2, CLL, Hyperlipidemia, B12 and Folate deficiency. Needs refills. Non Smoker, former. No Fam HX DM. Had labs today. Recent Mammogram isd WNL. Recent PAP is WNL. Recent CT showed DJD ofC-spine. No neck. +Mild, intermittent LBP. No radiation, numbness or weakness. +Right blurred vision. +Intermittent palpitations. +Left knee pain. No swelling. No C.P., SOB, Edema, Dizziness, Fatigue, GERD, Melena, Hematochezia, Dysuria, or Frequency. All others negative on ROS. Review of Systems Constitutional: Negative for fatigue and unexpected weight change. Eyes: Positive for visual disturbance (right). Respiratory: Negative for shortness of breath. Cardiovascular: Positive for palpitations (intermittent). Negative for chest pain and leg swelling. Gastrointestinal: Negative for abdominal pain and blood in stool. No GERD Genitourinary: Negative for dysuria and frequency. Musculoskeletal: Positive for arthralgias (left knee) and back pain (LBP, mild, intermittent). Neurological: Negative for dizziness, weakness and numbness. Psychiatric/Behavioral: Negative for dysphoric mood and sleep disturbance. The patient is not nervous/anxious. All other systems reviewed and are negative. Vitals: Blood pressure 120/56, pulse 71, temperature 97 F (36.1 C), resp. rate 14, height 1.651 m (5' 5), weight 95.3 kg (210 lb), SpO2 97 %, not currently . Physical Exam Vitals and nursing note reviewed. Constitutional: General: She is not in acute distress. Appearance: Normal appearance. She is obese. She is not ill-appearing. HENT: Head: Normocephalic and atraumatic. Nose: No congestion. Eyes: General: No scleral icterus. Right eye: No discharge. Left eye: No discharge. Extraocular Movements: Extraocular movements intact. Conjunctiva/sclera: Conjunctivae normal. Pupils: Pupils are equal, round, and reactive to light. Pulmonary: Effort: Pulmonary effort is normal. Breath sounds: No wheezing or rhonchi. Abdominal: General: Abdomen is flat. Bowel sounds are normal. There is no distension. Tenderness: There is no abdominal tenderness. Musculoskeletal: General: Normal range of motion. Cervical back: Normal range of motion and neck supple. No rigidity. No muscular tenderness. Right lower leg: No edema. Left lower leg: No edema. Skin: Coloration: Skin is not jaundiced. Findings: No bruising, erythema or rash. Neurological: General: No focal deficit present. Mental Status: She is alert and oriented to person, place, and time. Mental status is at baseline. Psychiatric: Mood and Affect: Mood normal. Behavior: Behavior normal. Thought Content: Thought content normal. Judgment: Judgment normal. Neurological Exam Mental Status Alert. Oriented to person, place, and time. Cranial Nerves CN III, IV, : Extraocular movements intact bilaterally. Pupils equal round and reactive to light bilaterally. Assessment and Plan Refills given all meds requested. Refer for DEXA and phone number given for Central Scheduling. Re-schedule soon with Dr. Dejesus. COVID-19 vaccine declined. Risks discussed. Alaina 02-21-[address] Calderon and get Pre-op clearance from him for 05-16-23 left total knee with Dr. Blackwood. Alaina 05-11-23 for F/U, and Pre-op clearance, sooner prn. Bring old BiPAP machine to recovery, which the patient declines to use due to intolerance or bring new dental appliance for Apnea to recovery which she is getting son from a dentist. Patient will get Pneumovax-23 and HD Flu on 09-28-[address] Bhakta. Re-do all labs, UA, Vit D, A1C, Fe, B12, Folate in and awaiting results of today's labs. Alaina 08-08-[address] Ciro Lyles. Alaina 09-28-[address] Naty Bhakta, Oncology at [facility] and get HD Flua nd Pneumovax-23 same day with her. Alaina 3-D Mammogram in . Alaina annual Pelvic and breast exam in with 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. Alaina PAP in with 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. Alaina Colon Colon in .Total time spent 33 minutes, excluding tests and procedures. Diet and lifestyle counseling was given, and care coordinated. OARRS report was received and assessed, and is consistent with the medications prescribed.Thank you for choosing [facility]. Fernie [facility]es s [facility].The patients' entire past medical, surgical, family, social history, allergies, medications,recent labs, recent imaging and [employer] commerce consultant letters were reviewed and updated. ADDENDUM: The GFR is now down to 56, C/W CKD-3a. Avoid all NSAIDS use. I placed a referral to Dr. Davison for further eval and Tx(given her his phone number and have her WRITE it down). We will call the lab to add or re- draw a PTH and Magnesium. The Triglycerides are extremely high at 454, and normal is 150. Over 400 you can cause pancreatitis. Stop ALL Alcohol use, drink skim milk, avoid nuts/peanuts/peanut butter. Follow a much lower sugar diet. The uric acid is high at 8.4 and normal is 6.0. The can cause gout and kidney stones, which will then further worsen her kidney function. Avoid ALL alcohol use and limit redmeat to 2X/week, avoid sweet, surgary drinks and limit shellfish consumption like shrimp. The A1C is 6.0 and glucose up still. Follow a lower sugar diet(alcohol is a sugar). Alaina 05-13-23 with me as prior scheduled(confirm appt). ASSESSMENT & PLAN: Encounter Diagnoses Name Primary? Type 2 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 disease, without long-term current use of insulin Yes Stage 3a chronic kidney disease Hyperlipidemia LDL goal <70 Idiopathic chronic gout without tophus, unspecified site Hypertriglyceridemia B12 deficiency Chronic gastritis without bleeding, unspecified gastritis type Hyponatremia Folate deficiency Hepatomegaly Gastroesophageal reflux disease without esophagitis Vitamin D deficiency Fatty liver Bilateral carotid artery stenosis-30% Right, 60% Left Paroxysmal atrial fibrillation Bradycardia Essential hypertension Internal and external hemorrhoids without complication PVC's (premature ventricular contractions) Chronic obstructive pulmonary disease, unspecified COPD type Pulmonary emphysema, unspecified emphysema type PERCY on CPAP-Off BiPAP due to intolerance Chronic sinusitis, unspecified location Non-seasonal allergic rhinitis, unspecified trigger Moderate persistent asthma without complication Hiatal hernia Cerebrovascular accident (CVA), unspecified mechanism Central retinal artery occlusion of left eye Ischemic stroke Hypertensive heart disease without heart failure Duodenal diverticulum Esophagitis, Clyo grade A Esophageal stenosis Combined forms of age-related cataract, bilateral Allergic conjunctivitis of both eyes Chronic midline low back pain without sciatica Lacunar infarction Hypermetropia of left eye Unspecified amblyopia, right eye Primary osteoarthritis of both knees Spondylosis of lumbar region without myelopathy or radiculopathy Other idiopathic scoliosis, lumbar region Spinal stenosis of lumbar region without neurogenic claudication Primary osteoarthritis of both hips-Mild Blepharitis of upper eyelids of both eyes, unspecified type Pinguecula of both eyes Regular astigmatism of left eye Anemia, unspecified type HNP (herniated nucleus pulposus), lumbar-Multi level Spondylosis of cervical region without myelopathy or radiculopathy Renal cyst, right Mixed stress and urge incontinence Seborrheic keratosis, inflamed-Left thigh-S/P Excision CLL (chronic lymphocytic leukemia) [id number] on 09-30-2020 Macrocytosis Elevated LFTs Anxiety and depression Former smoker-Quit 2011 Insomnia, unspecified type Obesity (BMI 30.0-34.9) Fatty food intolerance Bilateral dry eyes Irregular astigmatism of right eye Fatigue, unspecified type Urinary frequency ASCUS of cervix with negative high risk HPV History of ETOH abuse Osteopenia determined by x-ray Vision loss of left eye Chronic anticoagulation Family history of Alzheimer's disease Pseudophakia History of cataract extraction, unspecified laterality Myopia of right eye Presbyopia Low HDL (under 40) Asymptomatic postmenopausal state Orders Placed This Encounter Procedures BONE DENSITY AXIAL (HIP, PELVIS, SPINE) Standing Status: Future Standing Expiration Date: 02/15/2024 Order Specific Question: Reason for Exam Answer: Asymptomatic postmenopausal state MAGNESIUM Standing Status: Future Standing Expiration Date: 02/15/2024 PTH INTACT Standing Status: Future Standing Expiration Date: 02/15/2024 AMB REFERRAL TO NEPHROLOGY Referral Priority: Routine Referral Type: Consultation Referred to Provider: Fernando Davison MD Number of Visits Requested: 1 Medications Discontinued During This Encounter Medication Reason albuterol (VENTOLIN HFA) 108 (90 Base) MCG/ACT Aero Soln inhaler Reorder triamterene-hydrochlorothiazide (Dyazide) 37.5-25 MG per capsule Reorder traZODone 100 MG tablet Reorder Pantoprazole (Protonix) [address] tablet Reorder Folic acid 1 MG tablet Reorder cyanocobalamin 1000 MCG tablet Reorder Cetirizine 10 MG tablet budesonide (Pulmicort Flexhaler) 180 MCG/ACT inhaler Reorder Lisinopril 5 MG tablet Reorder apixaban 5 MG tablet Reorder buPROPion (Wellbutrin XL) 300 MG tablet XL Reorder Current Outpatient Medications Medication Sig Dispense Refill Albuterol (Ventolin HFA) 108 (90 Base) MCG/ACT Aero Soln inhaler Inhale 2 puffs every 6 hours as needed for Wheezing. 18 g 0 apixaban 5 MG tablet Take 1 tablet by mouth every 12 hours. 180 tablet 0 budesonide (Pulmicort Flexhaler) 180 MCG/ACT inhaler Inhale 1 puff 2 times daily. Rinse mouth with water after each dose 3 Each 0 buPROPion (Wellbutrin XL) 300 MG tablet XL Take 1 tablet by mouth every morning before breakfast. 90 tablet 0 Cetirizine 10 MG tablet Take 1 tablet by mouth daily as needed for Allergies. OTC cyanocobalamin 1000 MCG tablet Take 1 tablet by mouth daily. Chew 1 tab q daily 90 tablet 0 Folic acid 1 MG tablet Take 1 tablet by mouth daily. 90 tablet 0 Lisinopril 5 MG tablet Take 1 tablet by mouth daily. Cancel previous refills 90 tablet 0 Pantoprazole (Protonix) [address] tablet DR Take 1 tablet by mouth 2 times daily (take before meals). 180 tablet 0 traZODone 100 MG tablet Take 1 tablet by mouth at bedtime. 90 tablet 0 triamterene-hydrochlorothiazide (Dyazide) 37.5-25 MG per capsule Take 1 capsule by mouth daily. Cancel previous refills 90 capsule 0 carveDILOL (Coreg) 12.5 MG tablet Take 1 tablet by mouth 2 times daily with meals. Given by Dr. Calderon Clindamycin Phos-Benzoyl Perox 1.2-3.75 % Gel Apply 1 Application topically daily. Given by Dermatology Dr. Dejesus Clopidogrel 75 MG tablet Take 1 tablet by mouth daily. 90 tablet 0 Evolocumab (Repatha SureClick) 140 MG/ML Solution Auto-injector injection Inject 1 mL under the skin every 14 days. 2 mL 11 fenofibrate 160 MG tablet Take 1 tablet by mouth daily. 90 tablet 0 No current facility-administered medications for this visit. Counseling given: No Follow up appointment(s) have been discussed with the patient. The patient is given an After Visit Summary sheet that lists all of their medications with directions, their allergies, orders placed during this encounter, immunization dates, and follow- up instructions. Fernie Paredes DO [address] [id number] This note is electronically signed in the electronic medical record. documented in this [facility] Miscellaneous Notes* Addendum Note - Fernie Paredes DO - 02/14/2023 1:30 PM EDTAddended by: FERNIE PAREDES on: 02/14/2023 09:43 PM Modules accepted: Orders documented in this encounterProm[facility]04-24-2023 Note* Addendum Note - Fernie Paredes DO - 02/14/2023 1:30 PM EDTAddended by: FERNIE PAREDES on: 02/14/2023 09:43 PM Modules accepted: Orders [facility]04-24-[facility] Evaluation note* Diagnosis Type 2 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 disease, without long-term current use of insulin- Primary Stage 3a chronic kidney disease Hyperlipidemia LDL goal <70 Other and unspecified hyperlipidemia Idiopathic chronic gout without tophus, unspecified site Hypertriglyceridemia Pure hyperglyceridemia B12 deficiency Other B-complex deficiencies Chronic gastritis without bleeding, unspecified gastritis type Hyponatremia Hyposmolality and/or hyponatremia Folate deficiency Other B-complex deficiencies Hepatomegaly Gastroesophageal reflux disease without esophagitis Esophageal reflux Vitamin D deficiency Unspecified vitamin D deficiency Fatty liver Other chronic nonalcoholic liver disease Bilateral carotid artery stenosis-30% Right, 60% Left Occlusion and stenosis of multiple and bilateral precerebral arteries without mention of cerebral infarction Paroxysmal atrial fibrillation Atrial fibrillation Bradycardia Other specified cardiac dysrhythmias Essential hypertension Unspecified essential hypertension Internal and external hemorrhoids without complication Internal hemorrhoids without mention of complication PVC's (premature ventricular contractions) Other premature beats Chronic obstructive pulmonary disease, unspecified COPD type Pulmonary emphysema, unspecified emphysema type PERCY on CPAP-Off BiPAP due to intolerance Obstructive sleep apnea (adult) (pediatric) Chronic sinusitis, unspecified location Non-seasonal allergic rhinitis, unspecified trigger Moderate persistent asthma without complication Unspecified asthma Hiatal hernia Diaphragmatic hernia without mention of obstruction or gangrene Cerebrovascular accident (CVA), unspecified mechanism Central retinal artery occlusion of left eye Central artery occlusion of retina Ischemic stroke Hypertensive heart disease without heart failure Unspecified hypertensive heart disease without heart failure Duodenal diverticulum Diverticulosis of small intestine (without mention of hemorrhage) Esophagitis, Clyo grade A Esophageal stenosis Stricture and stenosis of esophagus Combined forms of age-related cataract, bilateral Allergic conjunctivitis of both eyes Other chronic allergic conjunctivitis Chronic midline low back pain without sciatica Lacunar infarction Unspecified cerebral artery occlusion with cerebral infarction Hypermetropia of left eye Hypermetropia Unspecified amblyopia, right eye Primary osteoarthritis of both knees Primary localized osteoarthrosis, lower leg Spondylosis of lumbar region without myelopathy or radiculopathy Lumbosacral spondylosis without myelopathy Other idiopathic scoliosis, lumbar region Spinal stenosis of lumbar region without neurogenic claudication Spinal stenosis, lumbar region, without neurogenic claudication Primary osteoarthritis of both hips-Mild Primary localized osteoarthrosis, pelvic region and thigh Blepharitis of upper eyelids of both eyes, unspecified type Pinguecula of both eyes Pinguecula Regular astigmatism of left eye Regular astigmatism Anemia, unspecified type HNP (herniated nucleus pulposus), lumbar-Multi level Displacement of lumbar intervertebral disc without myelopathy Spondylosis of cervical region without myelopathy or radiculopathy Cervical spondylosis without myelopathy Renal cyst, right Unspecified congenital cystic kidney disease Mixed stress and urge incontinence Seborrheic keratosis, inflamed-Left thigh-S/P Excision Inflamed seborrheic keratosis CLL (chronic lymphocytic leukemia) Chronic lymphoid leukemia, without mention of having achieved remission [id number] on 09-30-2020 Macrocytosis Other specified diseases of blood and blood-forming organs Elevated LFTs Other abnormal blood chemistry Anxiety and depression Dysthymic disorder Former smoker-Quit 2011 Personal history of tobacco use, presenting hazards to health Insomnia, unspecified type Obesity (BMI 30.0-34.9) Obesity, unspecified Fatty food intolerance Other specified intestinal malabsorption Bilateral dry eyes Tear film insufficiency, unspecified Irregular astigmatism of right eye Irregular astigmatism Fatigue, unspecified type Urinary frequency ASCUS of cervix with negative high risk HPV History of ETOH abuse Nondependent alcohol abuse, in remission Osteopenia determined by x-ray Vision loss of left eye Unqualified visual loss, one eye Chronic anticoagulation Encounter for long-term (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 of anticoagulants Family history of Alzheimer's disease Family history of other condition Pseudophakia Lens replaced by other means History of cataract extraction, unspecified laterality Myopia of right eye Myopia Presbyopia Low HDL (under 40) Lipoprotein deficiencies Asymptomatic postmenopausal state Primary osteoarthritis of left knee Primary localized osteoarthrosis, lower leg documented in this encounter [facility] Reason for referral (narrative)* Consultation (Routine) - New Request Specialty Diagnoses / Procedures Referred By Contac t Referred To Contact Nephrology Diagnoses Type 2 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 disease, without long-term current use of insulin Stage 3a chronic kidney disease Fernie Paredes DO [address] [place] [id number] Fernando Davison MD [address] [place] [address] Referral ID Status Reason Start Date Expiration Date V isits Requested Visits Authorized [id number] New Request 02/14/2023 03/10/2024 1 1 * Radiology (Routine) - Auth Not Needed Specialty Diagnoses / Procedures Referred By Contac t Referred To Contact Diagnoses Asymptomatic postmenopausal state Procedures BONE DENSITY AXIAL (HIP, PELVIS, SPINE) Fernie Paredes DO [address] [place] [id number] Referral ID Status Reason Start Date Expiration Date V isits Requested Visits Authorized [id number] Auth Not Needed 02/14/2023 03/10/2024 1 1 [facility]04-14[facility] Instructions* Patient Instructions* Ciro Lyles MD - 02/04/2023 1:50 PM EDT If you have any questions please contact our office at [phone]. After office hours or on the weekend, please call Dr. Lyles on his cell phone at [phone]. documented in [facility]04-[facility] History of Present illness Narrative* Ciro Lyles MD - 02/04/2023 1:49 PM EDT ASSESSMENT/PLAN: 1. Central retinal artery occlusion, left eye - ICD9: 362.31, ICD10: H34.12 (primary diagnosis) Patient to see Dr. Tamera Esteves 2. Ischemic stroke (HCC) - ICD9: 434.91, ICD10: I63.9 Continue care with Cardiology. 3. Essential hypertension - ICD9: 401.9, ICD10: I10 Continue to monitor with primary care physician. 4. Hypercholesteremia - ICD9: 272.0, ICD10: E78.00 Continue to monitor with primary care physician. 5. Paroxysmal atrial fibrillation (HCC) - ICD9: 427.31, ICD10: I48.0 Continue care with Cardiology. Recommended patient see Dr. Garza for refraction and glasses. Ciro Lyles MD I have confirmed and edited as necessary the relevant ophthalmic history, review of systems, surgical history, and ophthalmological examination findings as obtained by the ophthalmic technical staff.I have seen and examined Elena Galeano. I have discussed the examination findings, diagnosis, andtreatment options with Elena Galeano and/or her family. I have also reviewed and agree with the assessment and plan as stated above and agree with all its relevant components. I gave the patient the opportunity to ask questions about the findings, diagnosis, and treatment options. documented in this encounterMi[facility]02-23-2023 Miscellaneous Notes* Op Note - Isreal Sigala MD - 12/16/2022 9:04 AM EST Operative Report DATE PERFORMED: 12/16/2022 PREOPERATIVE DIAGNOSIS: Lumbar spondylosis. POSTOPERATIVE DIAGNOSIS: Lumbar spondylosis. PROCEDURE: 1. Left superior cluneal nerve block. 2. Use of fluoroscopy-interpreted intraoperatively by neurosurgeon. SURGEON(S): Isreal Sigala MD PROCEDURE IN DETAIL: Ms. Galeano was taken to the operating room, placed prone on the operating room table. The point of maximal tenderness along the left posterior superior iliac crest was marked. The patient was then sedated. Under MAC anesthesia, a 22-gauge spinal needle was inserted percutaneously with fluoroscopic visualization to the point along the left posterior superior iliac crest nearest the point of maximal tenderness. Upon aspiration, there was no blood. Therefore, 30 mL 0.5% Marcaine and 80 mg of Depo-Medrol were injected. Needle was removed. Band-Aid was placed. The patient was then turned supine onto the [facility] and taken to recovery room in stable and satisfactory condition, having tolerated the procedure well. Dictated By: MD Isreal Cook MD ATTENDING OSKAR/MedVinayak JOB: [id number] DOC: [id number] * Brief Op Note - Isreal Sigala MD - 12/16/2022 8:21 AM EST POST OPERATIVE/PROCEDURE NOTE Elena Galeano ([id number]) SURGEON Surgeon(s) and Role: * Isreal Sigala MD - Primary HEAD STOCK TRANSFER CLERK None ANESTHESIOLOGIST GRAD INTERN: Memo Kay APRN-GRAD INTERN SURGICAL STAFF Single Pass Soil Stabilizer Operator: Diana Rosales RN Scrub Person: Naty Duong PROCEDURE PERFORMED Procedure(s) (LRB): INJECTION NERVE OTHER PERIPHERAL (Left) GUIDANCE FLUOROSCOPIC NEEDLE OR CATHETER PLACEMENT FOR SPINE INJECTION ADD-ON PX (Left) PRIMARY CLOSURE No ANESTHESIA (type of) Local ESTIMATED BLOOD LOSS None DRAINS None BLOOD PRODUCTS None FLUIDS No intake or output data in the 24 hours ending 12/16/22 0821 PRE OPERATIVE DIAGNOSIS Other spondylosis with radiculopathy, lumbar region [M47.26] POST OPERATIVE DIAGNOSIS Post-Op Diagnosis Codes: * Other spondylosis with radiculopathy, lumbar region [M47.26] FINDINGS No significant abnormalities CONDITION OF PATIENT stable COMPLICATIONS None GRAFTS AND/OR IMPLANTS See OR Nursing Documentation SPECIMENS No specimen sent * No specimens in log * Isreal Sigala MD December 16, 2022 8:21 AM documented in this [facility]02-23-2023 Note* Op Note - Isreal Sigala MD - 12/16/2022 9:04 AM EST Operative Report DATE PERFORMED: 12/16/2022 PREOPERATIVE DIAGNOSIS: Lumbar spondylosis. POSTOPERATIVE DIAGNOSIS: Lumbar spondylosis. PROCEDURE: 1. Left superior cluneal nerve block. 2. Use of fluoroscopy-interpreted intraoperatively by neurosurgeon. SURGEON(S): Isreal Sigala MD PROCEDURE IN DETAIL: Ms. Galeano was taken to the operating room, placed prone on the operating room table. The point of maximal tenderness along the left posterior superior iliac crest was marked. The patient was then sedated. Under MAC anesthesia, a 22-gauge spinal needle was inserted percutaneously with fluoroscopic visualization to the point along the left posterior superior iliac crest nearest the point of maximal tenderness. Upon aspiration, there was no blood. Therefore, 30 mL 0.5% Marcaine and 80 mg of Depo-Medrol were injected. Needle was removed. Band-Aid was placed. The patient was then turned supine onto the [facility] and taken to recovery room in stable and satisfactory condition, having tolerated the procedure well. Dictated By: MD Isreal Cook MD ATTENDING OSKAR/Jenniffer JOB: [id number] DOC: [id number] [facility] Work Phone: 1(632) 385-280402-23-2023 Nurse Note* Nery Germain RN - 12/16/2022 8:51 AM EST Discharge instructions reviewed with patient and her ; verbalized understanding and copy given to patient. * Diana Rosales RN - 12/16/2022 8:21 AM EST Transported to room 11 per REINIER SCHMITT and ROMAN RÍOS. Monitors applied. Report given to REINIER MALLOY. documented in this encounterProm[facility]02-23-2023 Nurse Surgical operation note* Nery Germain RN - 12/16/2022 8:51 AM EST Discharge instructions reviewed with patient and her ; verbalized understanding and copy given to patient. [facility]02[facility] Hospital Discharge instructions* Discharge Instructions* Nery Germain RN - 12/16/2022 8:42 AM EST POST SPINAL BLOCK/DISCOGRAM HOME INSTRUCTIONS Dr. Sigala [facility] Following Your Procedure - Do not drive a car or operate any heavy machinery for 24 hours. - Do not drink alcoholic beverages (beer or wine included) for 24 hours. - Delay making important decisions until you are fully recovered from your procedure. - Have a sponsor drive you home from the hospital. Activity at Home - Gentle activities today. You may resume normal activities tomorrow. - Limit the amount of heavy lifting and strenuous exercise to a minimum. Incision Care - You may remove your Band-Aid tomorrow and take a shower. Diet - You may return to your normal daily diet. Slightly increase the amount of fluids you drink today. Medications - Pain medications should be kept to a minimum in order to determine effectiveness of the procedure. All other routine daily medications should be restarted unless specified by your doctor. When to Call Your Surgeon - Your temperature is 101 degrees or above and does not come down with Tylenol. - You notice drainage, increased redness, or warmth at the injection site. - You have calf pain or unusual swelling in your lower legs. - If you are experiencing shortness of breath, chest pain, or abnormal coughing CALL 911. - Call the office with any questions, problems, or to schedule your next appointment. Our number [phone]. documented in this encounterProm[facility]02-23-2023 Note* Brief Op Note - Isreal Sigala MD - 12/16/2022 8:21 AM EST POST OPERATIVE/PROCEDURE NOTE Elena Galeano ([id number]) SURGEON Surgeon(s) and Role: * Isreal Sigala MD - Primary HEAD STOCK TRANSFER CLERK None ANESTHESIOLOGIST GRAD INTERN: Memo Kay APRN-GRAD INTERN SURGICAL STAFF [employer] Stabil[employer] Operator: Diana Rosales RN Scrub Person: Naty Timmonsdanoeli PROCEDURE PERFORMED Procedure(s) (LRB): INJECTION NERVE OTHER PERIPHERAL (Left) GUIDANCE FLUOROSCOPIC NEEDLE OR CATHETER PLACEMENT FOR SPINE INJECTION ADD-ON PX (Left) PRIMARY CLOSURE No ANESTHESIA (type of) Local ESTIMATED BLOOD LOSS None DRAINS None BLOOD PRODUCTS None FLUIDS No intake or output data in the 24 hours ending 12/16/22 0821 PRE OPERATIVE DIAGNOSIS Other spondylosis with radiculopathy, lumbar region [M47.26] POST OPERATIVE DIAGNOSIS Post-Op Diagnosis Codes: * Other spondylosis with radiculopathy, lumbar region [M47.26] FINDINGS No significant abnormalities CONDITION OF PATIENT stable COMPLICATIONS None GRAFTS AND/OR IMPLANTS See OR Nursing Documentation SPECIMENS No specimen sent * No specimens in log * Isreal Sigala MD December 16, 2022 8:21 AM [facility]02-23-2023 Nurse Surgical operation note* Diana Rosales RN - 12/16/2022 8:21 AM EST Transported to room 11 per REINIER SCHMITT and ROMAN RÍOS. Monitors applied. Report given to REINIER MALLOY. [facility]02-20-2023 Miscellaneous Notes* Telephone Encounter - Shi Morel APRN.CNP - 12/13/2022 11:37 AM EST Noted. Shi Morel APRN.CNP * Telephone Encounter - Delilah Hamlin RN - 12/13/2022 11:09 AM EST Called PT about Event monitor showed predominantly sinus rhythm with an average heart rate of 60 bpm. Lowest heart rate was 41 bpm around 4:30 in the afternoon (asymptomatic). This may be due to a nap during this time? Please assure patient is having no new lightheadedness or dizziness since increase carvedilol dose. There were occasional asymptomatic PACs. There was no atrial fibrillation on the monitor. Shi Morel APRN.CNP PT states her heart Dr. Fairbanks at the DC put her back on Carvedilol at 12.5 mg twice a day. PT states she feels better. PT states when she was taking carvedilol 25 mg twice a day she felt unsteady walking. PT states her 130s/70s HR 60s pt was taking her BPs before her medications I advised the PTto take BP at least 1 hour after taking her medications. PT states she understands and feels much better. * Telephone Encounter - Shi Morel APRN.CNP - 12/13/2022 10:10 AM EST Please call the patient: Event monitor showed predominantly sinus rhythm with an average heart rate of 60 bpm. Lowest heart rate was 41 bpm around 4:30 in the afternoon (asymptomatic). This may be due to a nap during this time? Please assure patient is having no new lightheadedness or dizziness since increase carvedilol dose. There were occasional asymptomatic PACs. There was no atrial fibrillation on the monitor. Shi Morel APRN.CNP documented in [facility]02-13-2023 Miscellaneous Notes* Telephone Encounter - Leila Palacios MA - 12/06/2022 2:30 PM EST Received forms from [facility] for patient's upcoming left total knee arthroplasty. Placed in Dr Frost's office documented in this encounterMiami [facility]02-01-2023 History of Present illness Narrative* Eddi Randhawa MD - 11/24/2022 9:32 AM EST IMPRESSION 62-year-old female with mild obstructive sleep apnea. RECOMMENDATION/PLAN I discussed with the patient regarding her options. Her options include retrying CPAP versus oral appliance. Patient is interested in oral appliance and therefore a dentist referral was placed. Givenher sleep apnea is mild, she is not a candidate for hypoglossal nerve stimulator. Chief Complaint Follow-up after sleep study History of Present Illness Elena Galeano is a 62 year old female with obstructive sleep apnea unable to tolerate CPAP presents for follow-up after recent sleep study. Patient was interested in hypoglossal nerve stimulator. She underwent a home sleep study on October 28, 2022. The results showed that she has mild PERCY with AHI of 5.9. PAST MEDICAL HISTORY Diagnosis Date Anxiety Depression Hypertension Lymphoma (HCC) 10/24/2010 Right knee pain 06/12/2014 Stroke (HCC) PAST SURGICAL HISTORY Procedure Laterality Date ANESTH OPEN/SURG ARTHRS TOTAL KNEE ARTHROPLASTY 05/19/2015 right TKA APPENDECTOMY ARTHROSCOPY KNEE SUBCHONDROPLAST 10/11/2014 right knee medial menisectomy & femoral tibial subchondroplasty COLONOSCOPY FLX DX W/COLLJ SPEC WHEN PFRMD 05/31/13 Colonoscopy EGD 2013 PAST SURGICAL HISTORY OF left ovary and fallopian tube removed for a benign cyst, done in her 's PAST SURGICAL HISTORY OF Pilonidal cyst removed PAST SURGICAL HISTORY OF 01/2013 port a cath, left , 2011 with revision in 2012 TONSILLECTOMY PRIMARY/SECONDARY <AGE 10 Tonsillectomy FAMILY HISTORY Problem Relation Age of Onset None Mother None Father None Sister X 3 None Brother X 2 CURRENT OUTPATIENT MEDICATIONS Current Outpatient Medications on File Prior to Visit Medication Sig lisinopril (ZESTRIL, PRINIVIL) 10 mg tablet Take 1 tablet by mouth once daily. carvedilol (COREG) 25 mg tablet Take 1 tablet by mouth twice daily with meals. (Patient taking differently: Take 12.5 mg by mouth twice daily with meals.) triamterene-hydroCHLOROthiazide (MAXZIDE-25) 37.5-25 mg per tablet Take 1 tablet by mouth once daily. clopidogrel (PLAVIX) 75 mg tablet Take 1 tablet by mouth once daily for 21 doses. traZODone (DESYREL) 100 mg tablet Take [address] (PROTONIX) 40 mg tablet Take 40 mg by mouth. buPROPion XL (WELLBUTRIN XL) 300 mg 24 hr tablet Take 300 mg by mouth. REPATHA SURECLICK 140 mg/mL pen injector Inject 1 mL under the skin every 14 days. albuterol HFA (PROVENTIL HFA, VENTOLIN HFA) 90 mcg/actuation inhaler Inhale 2 Puffs as instructed every 6 hours as needed. apixaban (ELIQUIS) 5 mg tab(s) Take 1 tablet by mouth twice daily. (Patient not taking: Reported on11/24/2022) No current facility-administered medications on file prior to visit. ALLERGIES ALLERGIES Allergen Reactions Seasonal Allergies Other: See Comments sneezing and stuffy nose The remainder of the patient's history and review of systems is on the outpatient questionaire which was reviewed by me and placed in the outpatient chart. PHYSICAL EXAMINATION Appearance: General examination of the patient's external face, head and neck reveals no abnormalities. The patient is not retrognathic The patient's voice is strong and clear and they communicate easily. Throat: There were no lesions to visualization or palpation of the lips, cheeks, gums, floor of mouth, tongue, hard and soft palate, tonsillar pillars or posterior pharyngeal wall. The patient is a Cortes Tongue Position 1 and has surgically absent tonsils. Eddi Randhawa MD [facility] History of Present illness Narrative* Fernie Paredes, DO - 11/22/2022 1:30 PM EST History of Present Illness HISTORY OF PRESENT ILLNESS: 62 y.o. female presents with complaints of: Encounter Diagnoses Name Primary? 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 disease, without long-term current use of insulin Yes Hyperlipidemia LDL goal <70 Hypertriglyceridemia Idiopathic chronic gout without tophus, unspecified site B12 deficiency Chronic gastritis without bleeding, unspecified gastritis type Folate deficiency Fatty liver Anemia, unspecified type Gastroesophageal reflux disease without esophagitis Hepatomegaly Vitamin D deficiency Duodenal diverticulum Esophagitis, Clyo grade A Esophageal stenosis Paroxysmal atrial fibrillation Chronic midline low back pain without sciatica Spinal stenosis of lumbar region without neurogenic claudication Spondylosis of cervical region without myelopathy or radiculopathy Spondylosis of lumbar region without myelopathy or radiculopathy Combined forms of age-related cataract, bilateral Hypermetropia of left eye Unspecified amblyopia, right eye Regular astigmatism of left eye Pinguecula of both eyes Blepharitis of upper eyelids of both eyes, unspecified type Allergic conjunctivitis of both eyes Other idiopathic scoliosis, lumbar region Primary osteoarthritis of both hips-Mild Primary osteoarthritis of both knees Bilateral carotid artery stenosis-30% Right, 60% Left Central retinal artery occlusion of left eye Bradycardia Cerebrovascular accident (CVA), unspecified mechanism Essential hypertension Ischemic stroke Internal and external hemorrhoids without complication PVC's (premature ventricular contractions) Chronic obstructive pulmonary disease, unspecified COPD type Chronic sinusitis, unspecified location Moderate persistent asthma without complication Non-seasonal allergic rhinitis, unspecified trigger PERCY on CPAP-No on BiPAP due to intolerance Pulmonary emphysema, unspecified emphysema type Hiatal hernia HNP (herniated nucleus pulposus), lumbar-Multi level Renal cyst, right Mixed stress and urge incontinence CKD (chronic kidney disease) stage 2, GFR 60-89 ml/min Macrocytosis Seborrheic keratosis, inflamed-Left thigh-S/P Excision [id number] on 09-30-2020 Anxiety and depression Hyponatremia Vision loss of left eye Urinary frequency Pseudophakia Presbyopia Osteopenia determined by x-ray Obesity (BMI 30.0-34.9) S/P total knee arthroplasty, right S/P unilateral salpingo-oophorectomy Insomnia, unspecified type Irregular astigmatism of right eye Low HDL (under 40) Myopia of right eye Fatty food intolerance Fatigue, unspecified type History of anemia History of ETOH abuse History of cataract extraction, unspecified laterality Former smoker-Quit 2011 Family history of Alzheimer's disease Elevated LFTs Bilateral dry eyes ASCUS of cervix with negative high risk HPV Type 2 DM, CKD-2, Hyperlipidemia, CVA and Left Central Retinal artery occlusion. Was in [facility] with recent CVA and Left Central retinal artery occulusion. Off Lexapro and fenofibrate. Pulse is slow. Now on Coreg 12.5 mg 2 BID from . Now on Eliquis and several new meds. Needs refills. Has 2 week eventmonitor on placed by Cardiology at on approx 11-17-22. +Blurred vision. +Intermitent palpitations. +Episodic light headedness. +Mild LBP. No radiation, numbness or weakness. Weight up slightly. No C.P., SOB, Edema, Dizziness, Fatigue, GERD, Melena, Hematochezia, Dysuria, or Frequency. All others negative on ROS. Dx A. Fib at [facility]. Review of Systems Constitutional: Positive for unexpected weight change (weight up). Negative for fatigue. Eyes: Positive for visual disturbance (bilaterally). Respiratory: Negative for cough, shortness of breath and wheezing. Cardiovascular: Positive for palpitations (intermittent). Negative for chest pain and leg swelling. Gastrointestinal: Negative for abdominal pain and blood in stool. No GERD Genitourinary: Negative for dysuria and frequency. Musculoskeletal: Positive for back pain. Negative for arthralgias. Neurological: Positive for light-headedness (episodic). Negative for dizziness, weakness and numbness. Psychiatric/Behavioral: Negative for dysphoric mood and sleep disturbance. The patient is not nervous/anxious. All other systems reviewed and are negative. Vitals: Blood pressure 139/63, pulse (!) 48, temperature 97.2 F (36.2 C), resp. rate 16, height 1.651 m (5' 5), weight 96.7 kg (213 lb 1.6 oz), SpO2 98 %, not currently . Physical Exam Vitals and nursing note reviewed. Constitutional: General: She is not in acute distress. Appearance: Normal appearance. She is obese. She is not ill-appearing. HENT: Head: Normocephalic and atraumatic. Nose: No congestion. Eyes: General: No scleral icterus. Right eye: No discharge. Left eye: No discharge. Extraocular Movements: Extraocular movements intact. Conjunctiva/sclera: Conjunctivae normal. Pupils: Pupils are equal, round, and reactive to light. Cardiovascular: Rate and Rhythm: Bradycardia present. Pulmonary: Effort: Pulmonary effort is normal. Breath sounds: No wheezing or rhonchi. Abdominal: General: Abdomen is flat. Bowel sounds are normal. There is no distension. Tenderness: There is no abdominal tenderness. Musculoskeletal: General: Normal range of motion. Cervical back: Normal range of motion and neck supple. No rigidity. No muscular tenderness. Right lower leg: No edema. Left lower leg: No edema. Skin: Coloration: Skin is not jaundiced. Findings: No bruising, erythema or rash. Neurological: General: No focal deficit present. Mental Status: She is alert and oriented to person, place, and time. Mental status is at baseline. Psychiatric: Mood and Affect: Mood normal. Behavior: Behavior normal. Thought Content: Thought content normal. Judgment: Judgment normal. Neurological Exam Mental Status Alert. Oriented to person, place, and time. Cranial Nerves CN III, IV, : Extraocular movements intact bilaterally. Pupils equal round and reactive to light bilaterally. Assessment and Plan Refills given all meds requested. We will contact Dr. Calderon to see the patient KENNETH in light of bradycardia of 48, and on increased dose of Coreg 12.5 mg [address] Oliva to establish care for recent CVA with left central retinal artery occlusion and phone number given. No Shingrix to be given. COVID- 19 vaccine declined. Risks discussed. Check 4 hrs fasting CBC, CMP, A1C, Lipid TSH, UA, Vit D, B12, Folate, Fe, TIBC, Ferritin today at [facility]. DC BiPAP due to intolerance and alaina on 11-24-[address] Eddi Randhawa at to discuss PERCY Tx options. Re-schedule soon with Dr. Sigala. Return 2 weeks event monitor on approx 12-01-[address] Frost at . Refer for 3-D Mammogram and DEXA to do after 02-13-23 and phone number given for Central scheduling. Alaina 01-24-[address] Dawn Frost. Alaina 02-03-23 with 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 for PAP. Alaina 02-04-[address] Ciro Lylse.DC Balance of Nature. Alaina 02-14-23, sooner prn. Alaina ? 02-15-[address] Dawn Frost, Cardiology at instead of 01-24-23 ?. Re-do Pneumovax-23 in . Alaina 05-03-[address] Calderon and patient also to call him today to be seen KENNETH and phone number given. Alaina PFT in . Alaina 09-28-23with Heme Oncology Dr. Naty Bhakta at [facility]. Alaina Colon in . Hold left total knee arthroplasty until cleared by both Cardiologists and sleep doctor/ENT Dr. Eddi Randhawa. Total time spent 42 minutes, excluding tests and procedures. Diet and lifestyle counseling was given, and care coordinated. OARRS report was received and assessed, and is consistent with the medications prescribed.Thank you for choosing Dr. Fernie Paredes s Office at [facility] for your healthcare needs.The patients' entire past medical, surgical, family, social history, allergies, medications, recent labs, recentimaging and [employer] commerce consultant letters were reviewed and updated. ASSESSMENT & PLAN: Encounter Diagnoses Name Primary? 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 disease, without long-term current use of insulin Yes Hyperlipidemia LDL goal <70 Hypertriglyceridemia Idiopathic chronic gout without tophus, unspecified site B12 deficiency Chronic gastritis without bleeding, unspecified gastritis type Folate deficiency Fatty liver Anemia, unspecified type Gastroesophageal reflux disease without esophagitis Hepatomegaly Vitamin D deficiency Duodenal diverticulum Esophagitis, Clyo grade A Esophageal stenosis Paroxysmal atrial fibrillation Chronic midline low back pain without sciatica Spinal stenosis of lumbar region without neurogenic claudication Spondylosis of cervical region without myelopathy or radiculopathy Spondylosis of lumbar region without myelopathy or radiculopathy Combined forms of age-related cataract, bilateral Hypermetropia of left eye Unspecified amblyopia, right eye Regular astigmatism of left eye Pinguecula of both eyes Blepharitis of upper eyelids of both eyes, unspecified type Allergic conjunctivitis of both eyes Other idiopathic scoliosis, lumbar region Primary osteoarthritis of both hips-Mild Primary osteoarthritis of both knees Bilateral carotid artery stenosis-30% Right, 60% Left Central retinal artery occlusion of left eye Bradycardia Cerebrovascular accident (CVA), unspecified mechanism Essential hypertension Ischemic stroke Internal and external hemorrhoids without complication PVC's (premature ventricular contractions) Chronic obstructive pulmonary disease, unspecified COPD type Chronic sinusitis, unspecified location Moderate persistent asthma without complication Non-seasonal allergic rhinitis, unspecified trigger PERCY on CPAP-No on BiPAP due to intolerance Pulmonary emphysema, unspecified emphysema type Hiatal hernia HNP (herniated nucleus pulposus), lumbar-Multi level Renal cyst, right Mixed stress and urge incontinence CKD (chronic kidney disease) stage 2, GFR 60-89 ml/min Macrocytosis Seborrheic keratosis, inflamed-Left thigh-S/P Excision [id number] on 09-30-2020 Anxiety and depression Hyponatremia Vision loss of left eye Urinary frequency Pseudophakia Presbyopia Osteopenia determined by x-ray Obesity (BMI 30.0-34.9) S/P total knee arthroplasty, right S/P unilateral salpingo-oophorectomy Insomnia, unspecified type Irregular astigmatism of right eye Low HDL (under 40) Myopia of right eye Fatty food intolerance Fatigue, unspecified type History of anemia History of ETOH abuse History of cataract extraction, unspecified laterality Former smoker-Quit 2012 Family history of Alzheimer's disease Elevated LFTs Bilateral dry eyes ASCUS of cervix with negative high risk HPV Orders Placed This Encounter Procedures CBC, EDIF, PLATELET Do NON fasting labs today Standing Status: Future Number of Occurrences: 1 Standing Expiration Date: 11/22/2023 COMPREHENSIVE METABOLIC PANEL Standing Status: Future Number of Occurrences: 1 Standing Expiration Date: 11/22/2023 HEMOGLOBIN A1C Standing Status: Future Number of Occurrences: 1 Standing Expiration Date: 11/22/2023 LIPID PANEL W CALCULATED LDL Standing Status: Future Number of Occurrences: 1 Standing Expiration Date: 11/22/2023 TSH Standing Status: Future Number of Occurrences: 1 Standing Expiration Date: 11/22/2023 URIC ACID Standing Status: Future Number of Occurrences: 1 Standing Expiration Date: 11/22/2023 VITAMIN D (25-HYDROXY,TOTAL) Standing Status: Future Number of Occurrences: 1 Standing Expiration Date: 11/22/2023 FOLATE, SERUM Standing Status: Future Number of Occurrences: 1 Standing Expiration Date: 11/22/2023 VITAMIN B12 Standing Status: Future Number of Occurrences: 1 Standing Expiration Date: 11/22/2023 FERRITIN Standing Status: Future Number of Occurrences: 1 Standing Expiration Date: 11/22/2023 IRON/IRON BINDING/TRANSFERRIN Standing Status: Future Number of Occurrences: 1 Standing Expiration Date: 11/22/2023 AMB REFERRAL TO NEUROLOGY Referral Priority: Urgent Referral Type: Consultation Referred to Provider: Burak Oliva MD Number of Visits Requested: 1 Medications Discontinued During This Encounter Medication Reason Mirabegron ER (Myrbetriq) 50 MG tablet NON-FORMULARY aspirin EC 81 MG Tab cetirizine 10 MG tablet triamterene-hydrochlorothiazide (Dyazide) 37.5-25 MG per capsule Reorder traZODone 100 MG tablet Reorder pantoprazole (Protonix) [address] brian ALLISON Reorder folic acid 1 MG tablet Reorder escitalopram 20 MG tablet Reorder cyanocobalamin 1000 MCG tablet Reorder buPROPion (Wellbutrin XL) 300 MG tablet XL Reorder budesonide (Pulmicort Flexhaler) 180 MCG/ACT inhaler Reorder Clopidogrel 75 MG tablet Reorder Lisinopril 5 MG tablet Reorder apixaban 5 MG tablet Reorder escitalopram 20 MG tablet fenofibrate 160 MG tablet carveDILOL (Coreg) 12.5 MG tablet Current Outpatient Medications Medication Sig Dispense Refill apixaban 5 MG tablet Take 1 tablet by mouth every 12 hours. 180 tablet 0 budesonide (Pulmicort Flexhaler) 180 MCG/ACT inhaler Inhale 1 puff 2 times daily. Rinse mouth with water after each dose 3 Each 0 buPROPion (Wellbutrin XL) 300 MG tablet XL Take 1 tablet by mouth every morning before breakfast. 90 tablet 0 carveDILOL (Coreg) 12.5 MG tablet Take 2 tablets by mouth 2 times daily with meals. Given by Dr. Calderon Cetirizine 10 MG tablet Take 1 tablet by mouth daily as needed for Allergies. OTC Clopidogrel 75 MG tablet Take 1 tablet by mouth daily. 90 tablet 0 cyanocobalamin 1000 MCG tablet Take 1 tablet by mouth daily. Chew 1 tab q daily 90 tablet 0 Folic acid 1 MG tablet Take 1 tablet by mouth daily. 90 tablet 0 Lisinopril 5 MG tablet Take 1 tablet by mouth daily. Rx started and given on 11-03-22 at [facility] for #30, 0rf's. 90 tablet 0 Pantoprazole (Protonix) [address] tablet DR Take 1 tablet by mouth 2 times daily (take before meals). 180 tablet 0 traZODone 100 MG tablet Take 1 tablet by mouth at bedtime. 90 tablet 0 triamterene-hydrochlorothiazide (Dyazide) 37.5-25 MG per capsule Take 1 capsule by mouth daily. Cancel previous refills 90 capsule 0 albuterol (VENTOLIN HFA) 108 (90 Base) MCG/ACT Aero Soln inhaler Inhale 2 puffs every 6 hours as needed for Wheezing. 1 Inhaler 0 Clindamycin Phos-Benzoyl Perox 1.2-3.75 % Gel Apply 1 Application topically daily. Given by Dermatology Dr. Anjelica Denneyocumab (Repronnie Buckner) 140 MG/ML Solution Auto-injector injection Inject 1 mL under the skin every 14 days. 2 mL 11 Misc. Devices Misc by Unknown route. Auto BIPAP max IPAP 14 min EPAP 4 PS 5 set up 02/06/21 [facility] (Patient not taking: Reported on 11/17/2022) No current facility-administered medications for this visit. Counseling given: No Follow up appointment(s) have been discussed with the patient. The patient is given an After Visit Summary sheet that lists all of their medications with directions, their allergies, orders placed during this encounter, immunization dates, and follow- up instructions. Fernie Paredes DO [address] [id number] This note is electronically signed in the electronic medical record. documented in this encounterProm[facility]30-[facility]23 Instructions* Patient Instructions* Fernie Paredes DO - 11/22/2022 1:30 PM EST Do NON fasting labs today documented in this encounterPromedica [facility]01-27-2023 Miscellaneous Notes* Telephone Encounter - Simona Mosquera RN - 11/19/2022 3:45 PM EST Patient called with questions regarding Plavix and Lexapro scripts given in hospital. Explained Plavix was only for 21 days and patient would not need a refill, and Lexapro would need to be done by her PCP. Patient verbalized understanding. Asked if she could make an appointment with Dr. Ariel Jean Baptiste; appointment line information provided. documented in this encounterMi[facility]2023 History of Present illness Narrative* Tanya Whittington LPN - 11/17/2022 11:20 AM EST Ortho Nurse - Patient Intake Room#: 1--Visit today to evaluate Left knee pain. She has had injections and did PT in the past forthis knee. The injections were steroid and gel. They no longer seem to help her pain. Her pain is a3 today. Date: 11/17/2022 11:56 AM Patient: Elena Galeano MR#: [id number] : 1960 Age: 62 y.o. Referring Physician: Gonsalo Blackwood MD Insurance: Payor: [employer] / Plan: MMO / Product Type: *No Product type* / Chief Complaint Patient presents with Left Knee - Pain, New Patient Visit Vitals Temp 96.8 F (36 C) (Temporal) Ht 1.651 m (5' 5) Wt 97.1 kg (214 lb) BMI 35.61 kg/m Pain Presence of Pain: complains of pain/discomfort Pain Location: knee, left Select Pain Scale: DVPRS (Defense and Veterans Pain Rating Scale) (Adult- Cognitively Intact) Pain Location: knee, left Select Pain Scale: DVPRS (Defense and Veterans Pain Rating Scale) (Adult- Cognitively Intact) Recent Labs No results found for: CRP No results found for: SEDRATE Lab Results Component Value Date WBC 6.19 09/29/2022 HGB 13.2 09/29/2022 HCT 39.8 09/29/2022 PLATELET 179 09/29/2022 MCV 97.3 09/29/2022 History Past Medical History: Diagnosis Date Non-Hodgkin lymphoma 2011 CLL (chronic lymphocytic leukemia) 2012 A-fib Anemia Arrhythmia ASCUS of cervix with negative high risk HPV B12 deficiency Carotid stenosis, bilateral-Right 30%, and left 60% Central retinal artery occlusion of left eye [id number] on 09-30-2020 Depression Diffuse non-Hodgkin's lymphoma chemotherapy Folate deficiency GERD (gastroesophageal reflux disease) Hiatal hernia Hyperglycemia Hyperlipidemia Hypertension PERCY (obstructive sleep apnea) PVC's (premature ventricular contractions) Stroke Past Surgical History: Procedure Laterality Date SUSPENSION URETHRA/URETHROVESICAL FEMALE OPEN W/ SYNTHETIC MATERIAL (SLING) Midline 08/31/2022 Laterality: Midline; Surgeon: Dariusz Rangel MD; Location: [facility] OR CYSTOURETHROSCOPY W/ DILATION BLADDER Midline 08/31/2022 Laterality: Midline; Surgeon: Dariusz Rangel MD; Location: [facility] OR COLPORRHAPHY ANTEROPOSTERIOR REPAIR CYSTOCELE & RECTOCELE Midline 08/31/2022 Laterality: Midline; Surgeon: Dariusz Rangel MD; Location: [facility] OR ARTHRODESIS SACROILIAC JOINT MINIMALLY INVASIVE W/ TRANSFIXING DEVICE Left 06/17/2022 Laterality: Left; Surgeon: Isreal Sigala MD; Location: [facility] OR GUIDANCE FLUOROSCOPIC NEEDLE OR CATHETER PLACEMENT FOR SPINE INJECTION ADD-ON PX Left 06/17/2022 Laterality: Left; Surgeon: Isreal Sigala MD; Location: [facility] OR EGD W/ DILATION BALLOON N/A 12/01/2021 Laterality: N/A; Surgeon: Indra Parrish DO; Location: [facility] ONT ENDOSCOPY SHOULDER ARTHROSCOPY Left 06/18/2021 REMOVAL CENTRAL VENOUS ACCESS DEVICE TUNNELED W/ PORT PUMP Left 09/13/2019 Laterality: Left; Surgeon: Eduardo Muñoz MD; Location: [facility] INTERVENTIONAL RADIOLOGY (VIR) EGD W/ DILATION BALLOON N/A 06/30/2018 Laterality: N/A; Surgeon: Indra Parrish DO; Location: [facility] ONT ENDOSCOPY EGD DIAGNOSTIC N/A 04/07/2018 Laterality: N/A; Surgeon: Wilner Leigh MD; Location: [facility] ONT ENDOSCOPY COLONOSCOPY DIAGNOSTIC N/A 04/07/2018 Laterality: N/A; Surgeon: Wilner Leigh MD; Location: [facility] ONT ENDOSCOPY KNEE REPLACEMENT Right 05/2015 done at [place]--[facility] ARTHROPLASTY KNEE TOTAL Right 04/2015 INSERTION PICC W/ PORT PUMP 2014 power port COLONOSCOPY DIAGNOSTIC 2006 SALPINGO-OOPHORECTOMY OPEN N/A 1983 APPENDECTOMY OPEN 1983 TONSILLECTOMY ADENOIDECTOMY 1967 EGD DIAGNOSTIC 10 months ago Family History: Her family history includes Autism in her grandson; Breast Cancer in her maternal aunt; Cancer in her paternal aunt; Cancer- Other in her maternal uncle; Clotting Disorder in her mother; Dementia in her father; Depression in her mother; Hypertension in her mother and son; Lipid Disorder in her daughter and mother; Lung Cancer in her maternal grandfather; No known problems in her daughter; Ovarian Cancer in her paternal aunt. Social History: Her reports that she quit smoking about 9 years ago. Her smoking use included cigarettes. She has a 26.25 pack-year smoking history. She has never used smokeless tobacco. She reports current alcohol use of about 2.0 standard drinks per week. She reports that she does not use drugs. Additional Social History Y N Notes Do you live alone? [] [x] Who lives with you: Do you have children? [x] [] How many: 3 Do you currently work? [] [x] What type of work do you do: Do you have stairs in the home? [x] [] How many do you have to climb to enter your home: 1 What services do you currently receive at home? [] [x] Name: Do you have transportation to go to outpatient therapy if needed? [] [] What Equipment do you have at home? [x] [] [x]Walker, []Crutches, []Commode Chair, [x]Shower []Chair, [x]cane, []bracing Are you followed by a gravity prospecting observer helper? [x] [] [facility] you followed by pain management? [] [x] Name: Are you followed by any other specialists? [] [x] Name: Outpatient Medications Prior to Visit Medication Sig Dispense Refill albuterol (VENTOLIN HFA) 108 (90 Base) MCG/ACT Aero Soln inhaler Inhale 2 puffs every 6 hours as needed for Wheezing. 1 Inhaler 0 apixaban 5 MG tablet Take 1 tablet by mouth every 12 hours. buPROPion (Wellbutrin XL) 300 MG tablet XL Take 1 tablet by mouth every morning before breakfast. 90 tablet 0 carveDILOL (Coreg) 12.5 MG tablet Take 1 tablet by mouth 2 times daily with meals. 180 tablet 3 Clindamycin Phos-Benzoyl Perox 1.2-3.75 % Gel Apply 1 Application topically daily. Given by Dermatology Dr. Dejesus Clopidogrel 75 MG tablet Take 1 tablet by mouth daily. Rx started and given at [facility] for[facility] days starting 11-03-22 Evolocumab (Lorie Buckner) 140 MG/ML Solution Auto-injector injection Inject 1 mL under the skin every 14 days. 2 mL 11 fenofibrate 160 MG tablet Take 1 tablet by mouth daily. 90 tablet 3 Lisinopril 5 MG tablet Take 1 tablet by mouth daily. Rx started and given on 11-03-22 at [facility] for #30, 0rf's. NON-FORMULARY 3 caps q daily of Balance of Nature pantoprazole (Protonix) [address] tablet DR Take 1 tablet by mouth 2 times daily (take before meals). 180 tablet 0 traZODone 100 MG tablet Take 1 tablet by mouth at bedtime. 90 tablet 0 triamterene-hydrochlorothiazide (Dyazide) 37.5-25 MG per capsule Take 1 capsule by mouth daily. Cancel previous refills 90 capsule 0 aspirin EC [address] Take 81 mg by mouth daily with breakfast. OTC (Patient not taking: Reportedon 11/17/2022) budesonide (Pulmicort Flexhaler) 180 MCG/ACT inhaler Inhale 1 puff 2 times daily. Rinse mouth with water after each dose (Patient not taking: Reported on 09/29/2022) 3 Each 0 cetirizine 10 MG tablet Take 1 tablet by mouth daily. OTC (Patient not taking: Reported on 09/29/2022) cyanocobalamin 1000 MCG tablet Take 1 tablet by mouth daily. Chew 1 tab q daily (Patient not taking: Reported on 09/29/2022) 90 tablet 0 escitalopram 20 MG tablet Take 1 tablet by mouth daily. (Patient not taking: Reported on 11/17/2022)90 tablet 0 folic acid 1 MG tablet Take 1 tablet by mouth daily. (Patient not taking: Reported on 09/29/2022) 90tablet 0 Mirabegron ER (Myrbetriq) 50 MG tablet Take 1 tablet by mouth daily. (Patient not taking: Reported on 09/29/2022) 30 tablet 11 Misc. Devices Misc by Unknown route. Auto BIPAP max IPAP 14 min EPAP 4 PS 5 set up 02/06/21 [facility] (Patient not taking: Reported on 11/17/2022) No facility-administered medications prior to visit. Allergies: She is allergic to nsaids. Y N Are you allergic to any metals? [] [x] If yes, what metals: Review of Systems System Y N Symptoms Constitutional [] [x] Weight Loss [] [x] Weight Gain [] [x] Chronic Fever [x] [] Insomnia Eyes [x] [] Resent Vision Change --left blind--Stroke [] [x] Cataracts [] [x] Glaucoma [] [x] Any Hx of Metal Fragments in the Eye ENT [] [x] Loss of hearing [] [x] Hearing Aids [x] [] Seasonal Allergies [] [x] Dental Issues Cardiovascular [] [x] Chest Pain [] [x] Angina [] [x] Stent [x] [] Hypertension [] [x] Heart Murmur [] [x] Irregular Pulse [] [x] Pacemaker [] [x] Palpitations [] [x] High cholesteral Respiratory [] [x] Wheezing [] [x] Shortness of Breath [] [x] Pneumonia [] [x] Bronchitis [x] [] Sleep Apnea [] [x] COPD [] [x] Date/ LOC of last CXR: Gastrointestinal [] [x] Heartburn [] [x] Indigestion [] [x] Constipation [] [x] Ulcer [] [x] GI Stomach Bleed [] [x] Diarrhea [] [x] Colon Cancer [] [x] Acid Reflux [] [x] Blood in Stools Musculoskeletal [x] [x] Arthritis [] [x] Muscle Weakness [x] [] Joint Pain [x] [] Back Pain [] [x] Fibromyalgia [] [x] Bone Infection [] [x] Swelling - Multiple Joints [] [x] Reflex Sympathetic Dystrophy Skin [] [x] Chronic Rash [] [x] Ulcers [] [x] Eczema [] [x] Psoriasis [] [x] Skin Cancer [] [x] Melanoma Neurologic [] [x] Numbness [] [x] Weakness or loss of sensation in arms or legs [] [x] Leg Pain / Sciatica [] [x] Headaches [] [x] Loss of bowel or bladder control Psychiatric [] [x] Anxiety [] [x] Claustrophobia [] [x] Other Psychiatric Problems Hematologic [] [x] Easy Bruising [] [x] Easy Bleeding [] [x] Blood Transfusion Date: Endocrine [] [x] Hypothyroid [] [x] Hyperthyroid [] [x] Hot Flashes [] [x] Hormone Replacement [] [x] Prednisone Use Does pt have dentures? no * Gonsalo Blackwood MD - 11/17/2022 11:20 AM EST HPI: Patient is here today to be evaluated for left knee pain. She is a pleasant 62 y.o. female. She is here today as a self referral. Primary complaint is pain and discomfort. She has experienced a progressive decline in physical function and quality of life secondary to the discomfort in the leftknee. She presents with a highly complex array of symptoms upon exam today. The more she is on it, the more it hurts. She has locking, popping, catching, clicking and instability. She is fearful of falling. She has attempted and failed formal PT and injections including both steroid and gel injections. Her pain is a 3/10 upon exam today. 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 PHYSICAL EXAM: This is an alert, oriented, and age-appropriate female. She is in no distress. Pleasant and cooperative. EXTREMITIES: The upper extremities have no gross deformities. Normal stability.Skin Intact. 5/5 motor. Intact sensation. Normal neurovascular status. Normal coordination. The lower extremities have no gross deformities. Normal stability. Skin Intact. 5/5 motor. Intact sensation. Normal neurovascular status. Normal coordination. Range of motion upon exam today is 5-115. Correctable varus alignment. Crepitus throughout the arc of motion. Painful range of motion. Full motion of hip. No pain. No impingement. No instability. Contralateral leg has normal alignment. Full motion.No pain. No impingement. No instability. IMAGING: Plain film radiographs were reviewed. Long-standing films of mechanical axis that falls tothe medial compartment of the left knee. Multiple views of the knee demonstrate moderate to severe medial compartmental arthritis of the knee with loss of joint space, subchondral sclerosis, osteophyte formation, and yiev-af-iuvw contact. IMPRESSION: 1.) Severe symptomatic end-stage arthritis, left knee. 2.) History of stroke, patient reported from two weeks ago, residual left eye blindness. 3.) A-fib. PLAN: We have discussed in great detail the nature of the diagnosis, the natural history and expected progression which is likely worsening pain, instability with risks of falls, and additional jointwear and or bone loss. We have discussed the options for treatment including both conservative and operative treatments. We have discussed the risks, benefits, and alternatives to each treatment. Elena is interested in surgical management in the form of a left total knee replacement. Elena understands that the potential benefits are reduced pain, improved stability and improved function. Elena also understands that the major limb and/or life threatening risks include, but are not limited to: bleeding, infection, neurovascular injury including foot drop or paralysis, dislocation, component failure, implant loosening, ligament or tendon disruption, fracture, stiffness, chronic pain, chronic disability, need for further surgery, blood clots in the extremities or lungs, stroke, heart attack, loss of limb, and ultimately loss of life. assisted expectations, risks and general implant survivorship were also discussed. Despite these risks, the patient would like to proceed with surgical planning. Today, we will initiate the pre-surgical process including nasal MRSA screening, scheduling an appointment for [facility] and the potential surgical date, and reviewing and signing the consent forms. I have reviewed the findings of my clinical staff below and agree with their assessment. Vitals: 11/17/22 1147 Temp: 96.8 degrees F (36 degrees C) TempSrc: Temporal Weight: 97.1 kg (214 lb) Height: 1.651 m (5' 5) Pain Presence of Pain: complains of pain/discomfort Pain Location: knee, left Select Pain Scale: DVPRS (Defense and Veterans Pain Rating Scale) (Adult- Cognitively Intact) Pain Location: knee, left Select Pain Scale: DVPRS (Defense and Veterans Pain Rating Scale) (Adult- Cognitively Intact) Recent Labs No results found for: CRP No results found for: SEDRATE Lab Results Component Value Date WBC 6.19 09/29/2022 HGB 13.2 09/29/2022 HCT 39.8 09/29/2022 PLATELET 179 09/29/2022 MCV 97.3 09/29/2022 Past Medical History: Diagnosis Date A-fib Anemia Arrhythmia ASCUS of cervix with negative high risk HPV B12 deficiency Carotid stenosis, bilateral-Right 30%, and left 60% Central retinal artery occlusion of left eye CLL (chronic lymphocytic leukemia) 2012 [id number] on 09-30-2020 Depression Diffuse non-Hodgkin's lymphoma chemotherapy Folate deficiency GERD (gastroesophageal reflux disease) Hiatal hernia Hyperglycemia Hyperlipidemia Hypertension Non-Hodgkin lymphoma 2011 PERCY (obstructive sleep apnea) PVC's (premature ventricular contractions) Stroke Past Surgical History: Procedure Laterality Date SUSPENSION URETHRA/URETHROVESICAL FEMALE OPEN W/ SYNTHETIC MATERIAL (SLING) Midline 08/31/2022 Laterality: Midline; Surgeon: Dariusz Rangel MD; Location: [facility] OR CYSTOURETHROSCOPY W/ DILATION BLADDER Midline 08/31/2022 Laterality: Midline; Surgeon: Dariusz Rangel MD; Location: [facility] OR COLPORRHAPHY ANTEROPOSTERIOR REPAIR CYSTOCELE & RECTOCELE Midline 08/31/2022 Laterality: Midline; Surgeon: Dariusz Rangel MD; Location: [facility] OR ARTHRODESIS SACROILIAC JOINT MINIMALLY INVASIVE W/ TRANSFIXING DEVICE Left 06/17/2022 Laterality: Left; Surgeon: Isreal Sigala MD; Location: [facility] OR GUIDANCE FLUOROSCOPIC NEEDLE OR CATHETER PLACEMENT FOR SPINE INJECTION ADD-ON PX Left 06/17/2022 Laterality: Left; Surgeon: Isreal Sigala MD; Location: [facility] OR EGD W/ DILATION BALLOON N/A 12/01/2021 Laterality: N/A; Surgeon: Indra Parrish DO; Location: [facility] SHOULDER ARTHROSCOPY Left 06/18/2021 REMOVAL CENTRAL VENOUS ACCESS DEVICE TUNNELED W/ PORT PUMP Left 09/13/2019 Laterality: Left; Surgeon: Eduardo Muñoz MD; Location: [facility] INTERVENTIONAL RADIOLOGY (VIR) EGD W/ DILATION BALLOON N/A 06/30/2018 Laterality: N/A; Surgeon: Indra Parrish DO; Location: [facility] EGD DIAGNOSTIC N/A 04/07/2018 Laterality: N/A; Surgeon: Wilner Leigh MD; Location: [facility] COLONOSCOPY DIAGNOSTIC N/A 04/07/2018 Laterality: N/A; Surgeon: Wilner Leigh MD; Location: [facility] KNEE REPLACEMENT Right 05/2015 done at [place]--CC ARTHROPLASTY KNEE TOTAL Right 04/2015 INSERTION PICC W/ PORT PUMP 2014 power port COLONOSCOPY DIAGNOSTIC 2006 SALPINGO-OOPHORECTOMY OPEN N/A 1983 APPENDECTOMY OPEN 1983 TONSILLECTOMY ADENOIDECTOMY 1968 EGD DIAGNOSTIC 10 months ago Family History Problem Relation Age of Onset Hypertension Mother Lipid Disorder Mother Depression Mother Clotting Disorder Mother Dementia Father Breast Cancer Maternal Aunt Cancer- Other Maternal Uncle melanoma Ovarian Cancer Paternal Aunt Cancer Paternal Aunt brain Lung Cancer Maternal Grandfather Hypertension Son Lipid Disorder Daughter No known problems Daughter Autism Grandson Social History Socioeconomic History Marital status: Tobacco Use Smoking status: Former Packs/day: 0.75 Years: 35.00 Pack years: 26.25 Types: Cigarettes Quit date: 04/23/2013 Years since quittin.5 Smokeless tobacco: Never Vaping Use Vaping Use: Never used Substance and Sexual Activity Alcohol use: Yes Alcohol/week: 2.0 standard drinks Types: 2 Cans of beer per week Comment: Hx ETOH abuse,and now 2 beers weekly Drug use: Never Sexual activity: Not Currently control/protection: Menopause Current Outpatient Medications: albuterol (VENTOLIN HFA) 108 (90 Base) MCG/ACT Aero Soln inhaler, Inhale 2 puffs every 6 hours as needed for Wheezing., Disp: 1 Inhaler, Rfl: 0 apixaban 5 MG tablet, Take 1 tablet by mouth every 12 hours., Disp: , Rfl: buPROPion (Wellbutrin XL) 300 MG tablet XL, Take 1 tablet by mouth every morning before breakfast.,Disp: 90 tablet, Rfl: 0 carveDILOL (Coreg) 12.5 MG tablet, Take 1 tablet by mouth 2 times daily with meals., Disp: 180 tablet, Rfl: 3 Clindamycin Phos-Benzoyl Perox 1.2-3.75 % Gel, Apply 1 Application topically daily. Given by Dermatology Dr. Dejesus, Disp: , Rfl: Clopidogrel 75 MG tablet, Take 1 tablet by mouth daily. Rx started and given at [facility] for 21 days starting 11-03-22, Disp: , Rfl: Evolocumab (Repatha SureClick) 140 MG/ML Solution Auto-injector injection, Inject 1 mL under the skin every 14 days., Disp: 2 mL, Rfl: 11 fenofibrate 160 MG tablet, Take 1 tablet by mouth daily., Disp: 90 tablet, Rfl: 3 Lisinopril 5 MG tablet, Take 1 tablet by mouth daily. Rx started and given on 11-03-22 at [facility] for #30, 0rf's., Disp: , Rfl: NON-FORMULARY, 3 caps q daily of Balance of Nature, Disp: , Rfl: pantoprazole (Protonix) [address] brian ALLISON, Take 1 tablet by mouth 2 times daily (take before meals)., Disp: 180 tablet, Rfl: 0 traZODone 100 MG tablet, Take 1 tablet by mouth at bedtime., Disp: 90 tablet, Rfl: 0 triamterene-hydrochlorothiazide (Dyazide) 37.5-25 MG per capsule, Take 1 capsule by mouth daily. Cancel previous refills, Disp: 90 capsule, Rfl: 0 aspirin EC [address], Take 81 mg by mouth daily with breakfast. OTC (Patient not taking: Reported on 11/17/2022), Disp: , Rfl: budesonide (Pulmicort Flexhaler) 180 MCG/ACT inhaler, Inhale 1 puff 2 times daily. Rinse mouth withwater after each dose (Patient not taking: Reported on 09/29/2022), Disp: 3 Each, Rfl: 0 cetirizine 10 MG tablet, Take 1 tablet by mouth daily. OTC (Patient not taking: Reported on 09/29/2022), Disp: , Rfl: cyanocobalamin 1000 MCG tablet, Take 1 tablet by mouth daily. Chew 1 tab q daily (Patient not taking: Reported on 09/29/2022), Disp: 90 tablet, Rfl: 0 escitalopram 20 MG tablet, Take 1 tablet by mouth daily. (Patient not taking: Reported on 11/17/2022), Disp: 90 tablet, Rfl: 0 folic acid 1 MG tablet, Take 1 tablet by mouth daily. (Patient not taking: Reported on 09/29/2022), Disp: 90 tablet, Rfl: 0 Mirabegron ER (Myrbetriq) 50 MG tablet, Take 1 tablet by mouth daily. (Patient not taking: Reportedon 09/29/2022), Disp: 30 tablet, Rfl: 11 Misc. Devices Misc, by Unknown route. Auto BIPAP max IPAP 14 min EPAP 4 PS 5 set up 02/06/21 DME MSC(Patient not taking: Reported on 11/17/2022), Disp: , Rfl: Allergies Allergen Reactions Nsaids Has CKD-2 [facility]* Leila Palacios MA - 11/17/2022 9:16 AM EST EVENT MONITOR DISPOSABLE PATCH INSTRUCTIONS Patient Name: Elena Galeano Clinic Number: [id number] Skin prepped and cleansed with alcohol Patch secured to prepped area Monitor Activated Serial #: [id number] Patient Instructed: Prescribed order timeframe Bathing guidelines Usage of event button and diary documentation Return of monitor at the end of prescribed order Call with problems [phone] or [phone]. [phone] Patient expresses a good understanding of instructions Leila Palacios MA [facility]* Patient Instructions* Laya Barillas APRN.CNP - 11/17/2022 8:45 AM EST Refills today to [facility] in [place] Please schedule with Neurology to discuss continuation of plavix. They originally wanted Plavix for21 days but I want them to weigh in on the final recommendations Continue same dose of Eliquis 5 mg twice a day. Increase Coreg to 25 mg twice a day - higher dose sent to the pharmacy. ZIO monitor today Schedule stress test in ~ 4 weeks (early december) Follow up with Dr. Frost in January as scheduled. [facility] History of Present illness Narrative* Laya Barillas APRN.JULISSA - 11/17/2022 8:11 AM EST Images from the original note were not included. [facility] Department of Cardiovascular Medicine SECTION OF CLINICAL CARDIOLOGY OUTPATIENT VISIT DATE November 17, 2022 OUTPATIENT VISIT TYPE ESTABLISHED Some documentation from previous visit of 11/11/2022 was copied and pasted, documentation has been reviewed and edited as necessary for today's visit. Patient Name: Elena Galeano : 1960 PRIMARY CARE PHYSICIAN: Fernie Paredes DO CHIEF COMPLAINT: Patient presents with: Hospital F/U Interval Hx: Ms. Galeano comes for a follow up visit. She has a PMH of COPD, recent PSG 10/28/22 c/w PERCY, hypertension, hyperlipidemia, CLL in remission, non- Hodgkin lymphoma s/p chemotherapy in remission, GERD, frequent PVCs mistaken for pAF in the past and no documentation of paroxysmal atrial fibrillation, recent ischemic lacunar infarct 10/30/22 of R frontal periventricular white matter along with L central retinal artery occlusion and vision loss placed on ASA, Plavix x 21 days per neuro), bilateral carotid stenosis (R 30%, L 60%), anxiety, osteoarthritis, gout, B12 deficiency, CKD II, obesity, ex smoker (quit 2012) and depression. She was admitted to [facility] for HTN urgency. She was seen in consult by Dr. Frost during her hospitalization. Came to with spouse. Reports doing ok since discharge Checking BP at home 125-140's Taking Meds: Yes - No missed dose NSAID's No Chronic Pain Yes (neck) Smoking No ETOH No Left eye vision loss with depth perception changes No chest pain + palpitations No SOB No GI/ bleeding on Eliquis and plavix IMPRESSION/PLAN: 1.Paroxysmal Atrial Fibrillation - noted brief run of AF with RVR during recent admission - She is a high thrombotic risk with [id number] score of 4 (increases to 5 in January 2023) - continue Eliquis 5. Mg BID and plavix (hx of CVA) - order for pharm [facility] - schedule in a few weeks. - check Zio monitor for breakthrough / burden of AF 2.Status post lacunar infarct and CRAO - Lacunar infarct c/w hypertension however CRAO more c/w embolic event - left eye vision loss as a result - Continue clopidogrel and Eliquis - schedule with neuro to discuss plavix continuation 3.Essential HTN - fair control on Lisinopril 10 mg daily, Coreg 12.5 mg BID and Maxide 37.5-25 - increase coreg to 25 mg BID 4.PERCY - Recent PSG 10/28/22 - has sleep follow up in November to discuss Inspire. 5.Frequent PVCs - By history but appears stable - Continue beta benedicto I spent a total of 36 minutes on the date of the service which included preparing to see the patient, [id number] patient care, completing clinical documentation, performing a medically appropriate examination, counseling and educating the patient/family/caregiver, ordering medications, tests, or p rocedures, and communicating results to the patient/family/caregiver. Thank you very much for allowing me to assist in the care of Elena Galeano. Please do not hesitate to contact me if you have questions or concerns. Laya Barillas APRN.[facility] Cardiology Nurse Practitioner Section of [facility] Cardiology [facility] Dept of Cardiovascular Medicine [facility] [address] [id number] Office Office November 17, 2022 8:11 AM This note was partially generated using [employer] voice recognition system and may contain errors related to that system including grammar, punctuation, spelling, and words that may be inappropriate. CARDIAC STUDIES: LV Ejection Fraction (%) Date Value 11/01/2022 65 03/20/2013 60 Last ECHO Result Conclusion ECHO Collected: 11/01/2022 9:10 AM (Final result) Impression: CONCLUSIONS: - Exam indication: Stroke - The left ventricle is normal in size. There is mild septal left ventricular hypertrophy. Left ventricular systolic function is normal. EF = 65 5% (2D biplane) Indeterminate left ventricular diastolic dysfunction. - The right ventricle is normal in size. Right ventricular systolic function is normal. - Estimated right ventricular systolic pressure is likely underestimated due to a weak or incomplete tricuspid regurgitation signal and is, at least, 24 mmHg consistent with normal pulmonary artery pressures. Estimated right atrial pressure is 8 mmHg based on IVC assessment. - There is no patent foramen ovale as detected by Doppler and agitated saline contrast. - Agitated saline study is negative for shunt (clip 86). - Exam was compared with the prior echocardiographic exam performed on 03/20/2013. There is no significant change. * * * Final * * * Last EKG Result Conclusion EKG Collected: 11/09/2022 2:41 PM (Final result) Impression: NORMAL SINUS RHYTHM WITH SINUS ARRHYTHMIA NORMAL ECG 1445 Confirmed by DAWN MACIAS DO ([id number]), publication editor MAGDIEL GILBERT ([id number]) on 11/10/2022 6:49:42 AM LABS: Sodium (mmol/L) Date Value 11/12/2022 142 11/11/2022 141 05/02/2015 141 09/30/2014 137 Potassium (mmol/L) Date Value 11/12/2022 4.5 11/11/2022 3.9 05/02/2015 4.1 09/30/2014 4.1 BUN (mg/dL) Date Value 11/12/2022 12 11/11/2022 9 11/10/2022 9 11/09/2022 8 05/02/2015 8 09/30/2014 11 08/07/2014 7 08/10/2013 12 Creatinine (mg/dL) Date Value 11/12/2022 0.97 11/11/2022 0.93 11/10/2022 0.84 11/09/2022 0.91 05/02/2015 0.80 09/30/2014 0.91 08/07/2014 0.65 08/10/2013 0.69 Magnesium (mg/dL) Date Value 11/12/2022 1.8 11/11/2022 1.9 10/23/2013 2.3 01/19/2013 1.8 Hemoglobin (g/dL) Date Value 11/12/2022 12.4 11/11/2022 11.8 04/01/2015 14.0 12/03/2012 14.0 No results found for: PROBNP RIVER High Sensitivity (ng/L) Date Value 11/09/2022 17 11/09/2022 14 11/09/2022 13 Cholesterol, Total (mg/dL) Date Value 11/01/2022 150 06/10/2017 230 HDL Cholesterol (mg/dL) Date Value 11/01/2022 61 06/10/2017 36 Triglyceride (mg/dL) Date Value 11/01/2022 289 06/10/2017 381 LDL Cholesterol (mg/dL) Date Value 11/01/2022 31 06/10/2017 118 TSH (uU/mL) Date Value 12/02/2012 3.990 PT INR (no units) Date Value 12/02/2012 1.0 INR (no units) Date Value 10/30/2022 1.0 There were no tests performed for review. PHYSICAL EXAMINATION: Vitals: Ht 165.1 cm (5' 5) Wt 96.6 kg (212 lb 14.4 oz) LMP 11/18/2011 BMI 35.43 kg/m General: Well appearing, in no acute distress. Skin: No clubbing, no cyanosis. Eyes: Extra ocular movements intact Oropharynx: Teeth in good repair. Neck: No jugular venous distention, no carotid bruits, carotids have a normal upstroke, no palpablethyromegaly. Lungs: Clear to auscultation bilaterally, no wheezing or rhonchi. Heart: Regular rhythm, PMI not displaced, S1, S2 normal, no S3, no S4, no heaves, no rub and no murmur. Abdomen: Soft, nontender, bowel sounds normal, no palpable organomegaly, no bruits. Extremities: No peripheral edema . Grade 2/4 distal pulses bilaterally. Neuro: Oriented to person, place and time, alert, cooperative, gait coordinated. REVIEW OF SYSTEMS: GENERAL: Negative for: Weight loss or gain, Fever or Chills, Weakness and Sleep difficulties. HEENT: Negative for: Headache, Impaired Vision, Glasses, Hearing Impairment, Ringing in Ears, Nosebleeds, Poor dental care, Bleeding Gums, Dentures NECK: Negative for: Swelling, Pain, Stiffness RESPIRATORY: Negative for: Cough, Blood in Sputum, Shortness of breath, Wheezing, Apnea GASTROINTESTINAL: Negative for: Trouble swallowing, Heartburn, Change in bowel habits, Blood in stool, Dark black stools MUSCULOSKELETAL: Negative for: Muscle or joint pain, Stiffness , Joint swelling NEUROLOGIC/PSYCHIATRIC: Negative for: Weakness, Paralysis, Numbness, Tingling, Tremor, Nervousness,Depressed mood, Memory loss SKIN: Negative for: Rashes, Itching HEMATOLOGICAL/LYMPHATIC: Negative for: Easy bruising , Easy bleeding ENDOCRINE: Negative for: Heat or cold intolerance, Excessive sweating, Frequent urination, Frequentthirst ALLERGIES: Seasonal Allergies PAST MEDICAL HISTORY: PAST MEDICAL HISTORY Diagnosis Date Anxiety Depression Hypertension Lymphoma (HCC) 10/2010 Right knee pain 06/12/2014 SOCIAL HISTORY: Social History Tobacco Use Smoking status: Former Packs/day: 0.50 Years: 30.00 Pack years: 15.00 Types: Cigarettes Quit date: 01/22/2013 Years since quittin.8 Smokeless tobacco: Never Vaping Use Vaping Use: Never used Substance Use Topics Alcohol use: No Drug use: No FAMILY HISTORY: FAMILY HISTORY Problem Relation Age of Onset None Mother None Father None Sister X 3 None Brother X 2 I have confirmed and edited as necessary, the PFSH and ROS obtained by others. Laya Barillas APRN.RESIDENTIAL CARE OFFICER CURRENT MEDICATIONS: Current Outpatient Medications Medication Sig apixaban (ELIQUIS) 5 mg tab(s) Take 1 tablet by mouth twice daily. lisinopril (ZESTRIL, PRINIVIL) 10 mg tablet Take 1 tablet by mouth once daily. carvedilol (COREG) 12.5 mg tablet Take 1 tablet by mouth twice daily with meals. clopidogrel (PLAVIX) 75 mg tablet Take 1 tablet by mouth once daily for 21 doses. traZODone (DESYREL) 100 mg tablet Take [address] (PROTONIX) 40 mg tablet Take 40 mg by mouth. buPROPion XL (WELLBUTRIN XL) 300 mg 24 hr tablet Take 300 mg by mouth. escitalopram oxalate (LEXAPRO) 20 mg tablet Take 1 tablet by mouth once daily. REPATHA SURECLICK 140 mg/mL pen injector Inject 1 mL under the skin every 14 days. albuterol HFA (PROVENTIL HFA, VENTOLIN HFA) 90 mcg/actuation inhaler Inhale 2 Puffs as instructed every 6 hours as needed. fenofibrate nanocrystallized (TRICOR) 145 mg tablet Take 1 tablet by mouth once daily. triamterene-hydrochlorothiazide 37.5-25 mg per tablet Take 1 tablet by mouth once daily. No current facility-administered medications for this visit. documented in this encounterMi[facility] NoteHNO ID: [id number] Author: Taylor Hutton ([employer]ender) Service: Pharmacy Author Type: ? Type: Plan of Care Filed: 11/12/2022 4:33 PM Note Text: PHARMACY BEDSIDE DELIVERY SERVICE Patient Name: Elena Galeano The marked outpatient medications were Filled at: [place] and delivered to the patient's bedside to [facility] Medication List START taking these medications apixaban 5 mg tab(s) Commonly known as: ELIQUIS Take 1 tablet by mouth twice daily. CHANGE how you take these medications carvedilol 12.5 mg tablet Commonly known as: COREG Take 1 tablet by mouth twice daily with meals. What changed: when to take this lisinopril 10 mg tablet Commonly known as: ZESTRIL, PRINIVIL Take 1 tablet by mouth once daily. Start taking on: November 13, 2022 What changed: medication strength how much to take X CONTINUE taking these medications albuterol HFA 90 mcg/actuation inhaler Commonly known as: PROVENTIL HFA, VENTOLIN HFA buPROPion XL 300 mg 24 hr tablet Commonly known as: WELLBUTRIN XL clopidogrel 75 mg tablet Commonly known as: PLAVIX Take 1 tablet by mouth once daily for 21 doses. escitalopram oxalate 20 mg tablet Commonly known as: LEXAPRO fenofibrate nanocrystallized 145 mg tablet Commonly known as: TRICOR Take 1 tablet by mouth once daily. pantoprazole DR 40 mg tablet Commonly known as: PROTONIX REPATHA SURECLICK 140 mg/mL pen injector Generic drug: evolocumab traZODone 100 mg tablet Commonly known as: DESYREL triamterene-hydroCHLOROthiazide 37.5-25 mg per tablet Commonly known as: MAXZIDE-25 You might also be taking other medications not listed above. If you have questions about any of your other medications, talk to the person who prescribed them or your Primary Care Provider. STOP taking these medications aspirin, enteric coated 81 mg EC tablet Commonly known as: ASPIRIN, ENTERIC COATED Fenofibrate 160 mg tablet Commonly known as: LOFIBRA Taylor Hutton ([employer]ender) PAGER: [phone] November 12, 2022 4:32 PMNationwide Children'S [id number] NoteHNO ID: [id number] Author: Manohar Rao MD Service: Hospital Medicine Author Type: Physician Type: Progress Notes Filed: 11/12/2022 10:54 AM Note Text: DEPARTMENT OF HOSPITAL MEDICINE PROGRESS NOTE SERVICE DATE: 11/12/2022 SERVICE TIME: 10:52 AM Hospital Medicine/Primary Attending: Manohar Rao MD NIGHT AND WEEKEND COVERAGE: SIPSEY COVERAGE: Days: [phone], please page attending physician. Nights: [phone], please page [place] Hospitalist Night coverage pager [phone]. Subjective INTERVAL HPI: No acute events overnight. Patient appears to be comfortably resting in bed. No complaints this AM. Patient did receive p.o. hydralazine in the evening. Patient would like to go home as soon as possible. Will increase dose of lisinopril this AM. Pending her blood pressures during the day likely discharge. Current Facility-Administered Medications Medication Dose Route Frequency carvedilol 12.5 mg tab(s) (COREG) 12.5 mg ORAL BID w MEALS albuterol HFA 90 mcg/actuation 2 Puff (PROVENTIL HFA, VENTOLIN HFA) 2 Puff INHALATION q 6 H PRN fenofibrate 200 mg cap(s) (LOFIBRA) 200 mg ORAL DAILY buPROPion SR 150 mg tab(s) (ZYBAN SR; WELLBUTRIN SR) 150 mg ORAL BID clopidogrel 75 mg tab(s) (PLAVIX) 75 mg ORAL DAILY triamterene-hydroCHLOROthiazide 37.5-25 mg 1 tablet (MAXZIDE-25) 1 tablet ORAL DAILY pantoprazole DR 40 mg tab(s) (PROTONIX) 40 mg ORAL DAILY (6 AM) escitalopram oxalate 20 mg tab(s) (LEXAPRO) 20 mg ORAL DAILY traZODone 100 mg tab(s) (DESYREL) 100 mg ORAL AT BEDTIME NaCl 0.9% iv flush bag 20 mL INTRAVENOUS PRN ondansetron orally disintegrating 4 mg tab(s) (ZOFRAN ODT) 4 mg ORAL q 6 H PRN Or ondansetron (PF) 4 mg injection (ZOFRAN) 4 mg INTRAVENOUS q 6 H PRN acetaminophen 650 mg tab(s) (TYLENOL) 650 mg ORAL q 4 H PRN apixaban 5 mg tab(s) (ELIQUIS) 5 mg ORAL BID lisinopril 10 mg tab(s) (ZESTRIL, PRINIVIL) 10 mg ORAL DAILY Objective PHYSICAL EXAM: BP 158/74 Pulse 66 Temp (Src) 98.8 (Oral) Resp 18 Ht 5' 5 (1.65m) Wt 213 lb 6.4 oz (96.8kg) SpO2 95% LMP 11/18/2011 BMI 35.51 kg/(m2). O2 Therapy: Room Air Physical Exam Performed Constitutional: In no apparent distress. Vital signs stable Eye: Pupils are equal. Extraocular motions intact ENMT: No visible external trauma. Hearing grossly intact. Neck: No Jugular Vein Distention Cardiovascular: Regular rate and rhythm. S1 and S2, without murmurs, without gallops, without rubs Respiratory: Chest with clear breath sounds bilaterally. No wheezes, no rales, no rhonchi Gastrointestinal: Soft, without detectable tenderness. No sign of distention. No rebound or guarding, no masses palpated. Bowel sounds present Genitourinary: Bladder soft Musculoskeletal: Good range of motion of all major joints. Extremities without clubbing, without cyanosis, without edema Integumentary: No rash, no bruising, no lesions Neurologic: Oriented to person, place and time. No focal sensory or strength deficits. Speech normal. Follows commands. Psychiatric: Calm, cooperative, appropriate Lines, Drains, and Airways Line Duration Peripheral 11/09/22 1505 Right Antecubital 20 Gauge 2 days Reviewed lines and needs to be continued: REASONS: Intravenous fluids DATA: Diagnostic tests reviewed for today's visit: Most recent labs Most recent imaging Most recent EKG CBC, Coags, BMP, Mg, Phos Recent Labs 11/12/22 0600 11/11/22 0353 11/10/22 0403 WBC 5.17 4.64 7.45 HB 12.4 11.8 11.2* HCT 37.1 35.2* 35.0* PLT 218 211 206 NA 142 141 145* K 4.5 3.9 4.4 CHLOR 104 104 105 CO2 30 29 31* BUN 12 9 9 CREAT 0.97* 0.93 0.84 GLUC 118* 123* 111* CA 10.0 9.4 8.8 MG 1.8 1.9 1.4* P 4.6 4.1 4.1 Assessment/Plan Problem List Hypertensive urgency POA: Yes Central artery occlusion of retina, left POA: Yes Obesity (BMI 30-39.9) POA: Yes Essential hypertension POA: Yes PERCY (obstructive sleep apnea) POA: Yes Carotid stenosis, bilateral POA: Yes Anxiety POA: Yes HOSPITAL COURSE: This is a 62 year old female with past medical history of anxiety, osteoarthritis, gout, B12 deficiency, CKD II, obesity, ex smoker (quit 2012), depression, COPD/PERCY (noncompliant with CPAP), hypertension, hyperlipidemia, CLL in remission, non-Hodgkin lymphoma s/p chemotherapy in remission, GERD, paroxysmal atrial fibrillation (no AC), recent ischemic lacunar infarct of R frontal periventricular white matter causing central artery occlusion of L retina with vision loss, bilateral carotid stenosis (R 30%, L 60% on ASA, Plavix) who presented to ED 11/09/22 with complaints of headache, blurred vision and dizziness Hypertensive urgency Assessment AND Plan: -Carvedilol 12.5 mg twice daily -Lisinopril 10 mg once daily, Increase as tolerated -Maxide 25 once daily -Hydralazine 10 mg IV every 6 hourly as needed for SBP greater than 180 -Continue to monitor blood pressure titrate up as needed Paroxysmal atrial fibrillation - (more content not included)...[facility] [id number] NoteHNO ID: [id number] Author: Sarah Kerr RN Service: Care Management Author Type: Registered Nurse Type: Care Mgt Progress Note Filed: 11/11/2022 1:35 PM Note Text: CARE MANAGEMENT PROGRESS NOTE SERVICE DATE: 11/11/2022 SERVICE TIME: 1330 LOS: 2 days Needs Prior to Discharge: To Be Determined;Discharge Prescriptions Pt's Cardene gtt discontinued 11/10, monitoring BP, still elevated but controlled. 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 Pt had CVA beginning of October, has a a clot in left eye which has caused burriness and vision loss. Following with opthamology since CVA. Pt continues on maxide,coreg,lisinpril for HTN management. Cardio suggest halter monitor as OP. SIGNATURE: Sarah Kerr RN PATIENT NAME: Elena Galeano DATE: November 11, 2022 TIME: 1:24 PM PAGER/CONTACT #: [phone] NoteHNO ID: [id number] Author: Manohar Rao MD Service: Hospital Medicine Author Type: Physician Type: Progress Notes Filed: 11/11/2022 12:14 PM Note Text: DEPARTMENT OF HOSPITAL MEDICINE PROGRESS NOTE SERVICE DATE: 11/11/2022 SERVICE TIME: 12:13 PM Hospital Medicine/Primary Attending: Crow Curiel MD NIGHT AND WEEKEND COVERAGE: SIPSEY COVERAGE: Days: [phone], please page attending physician. Nights: [phone], please page [place] [facility]ist Night coverage pager [phone]. Subjective INTERVAL HPI: Patient is still in ICU under ICU care Patient is still to be transferred to the floor due to bed availability. Will follow up with patient once she has been transferred. No complaints this AM. Patient has been off of IV drip. Did receive IV antihypertensive yesterday evening per nursing staff. No other complaints per the patient. Current Facility-Administered Medications Medication Dose Route Frequency lisinopril 5 mg tab(s) (ZESTRIL, PRINIVIL) 5 mg ORAL DAILY carvedilol 12.5 mg tab(s) (COREG) 12.5 mg ORAL BID w MEALS albuterol HFA 90 mcg/actuation 2 Puff (PROVENTIL HFA, VENTOLIN HFA) 2 Puff INHALATION q 6 H PRN fenofibrate 200 mg cap(s) (LOFIBRA) 200 mg ORAL DAILY buPROPion SR 150 mg tab(s) (ZYBAN SR; WELLBUTRIN SR) 150 mg ORAL BID clopidogrel 75 mg tab(s) (PLAVIX) 75 mg ORAL DAILY triamterene-hydroCHLOROthiazide 37.5-25 mg 1 tablet (MAXZIDE-25) 1 tablet ORAL DAILY pantoprazole DR 40 mg tab(s) (PROTONIX) 40 mg ORAL DAILY (6 AM) escitalopram oxalate 20 mg tab(s) (LEXAPRO) 20 mg ORAL DAILY traZODone 100 mg tab(s) (DESYREL) 100 mg ORAL AT BEDTIME NaCl 0.9% iv flush bag 20 mL INTRAVENOUS PRN ondansetron orally disintegrating 4 mg tab(s) (ZOFRAN ODT) 4 mg ORAL q 6 H PRN Or ondansetron (PF) 4 mg injection (ZOFRAN) 4 mg INTRAVENOUS q 6 H PRN acetaminophen 650 mg tab(s) (TYLENOL) 650 mg ORAL q 4 H PRN hydrALAZINE 10 mg injection (APRESOLINE) 10 mg INTRAVENOUS q 6 H PRN apixaban 5 mg tab(s) (ELIQUIS) 5 mg ORAL BID Objective PHYSICAL EXAM: BP 138/66 Pulse 62 Temp (Src) 98 (Oral) Resp 27 Ht 5' 5 (1.65m) Wt 220 lb 7.4 oz (100.0kg) SpO2 95% LMP 11/18/2011 BMI 36.69 kg/(m2). Physical Exam Performed Constitutional: In no apparent distress. Vital signs stable Eye: Pupils are equal. Extraocular motions intact ENMT: No visible external trauma. Hearing grossly intact. Neck: No Jugular Vein Distention Cardiovascular: Regular rate and rhythm. S1 and S2, without murmurs, without gallops, without rubs Respiratory: Chest with clear breath sounds bilaterally. No wheezes, no rales, no rhonchi Gastrointestinal: Soft, without detectable tenderness. No sign of distention. No rebound or guarding, no masses palpated. Bowel sounds present Genitourinary: Bladder soft Musculoskeletal: Good range of motion of all major joints. Extremities without clubbing, without cyanosis, without edema Integumentary: No rash, no bruising, no lesions Neurologic: Oriented to person, place and time. No focal sensory or strength deficits. Speech normal. Follows commands. Psychiatric: Calm, cooperative, appropriate Lines, Drains, and Airways Line Duration Peripheral 11/09/22 1505 Right Antecubital 20 Gauge 1 day Reviewed lines and needs to be continued: REASONS: Intravenous fluids DATA: Diagnostic tests reviewed for today's visit: Most recent labs Most recent imaging Most recent EKG CBC, Coags, BMP, Mg, Phos Recent Labs 11/11/22 0353 11/10/22 0403 11/09/22 1506 WBC 4.64 7.45 4.63 HB 11.8 11.2* 12.3 HCT 35.2* 35.0* 36.9 PLT 211 206 236 NA 141 145* 144 K 3.9 4.4 4.5 CHLOR 104 105 105 CO2 29 31* 29 BUN 9 9 8 CREAT 0.93 0.84 0.91 GLUC 123* 111* 90 CA 9.4 8.8 9.3 MG 1.9 1.4* -- P 4.1 4.1 -- Assessment/Plan Problem List Hypertensive urgency POA: Yes Central artery occlusion of retina, left POA: Yes Obesity (BMI 30-39.9) POA: Yes Essential hypertension POA: Yes PERCY (obstructive sleep apnea) POA: Yes Carotid stenosis, bilateral POA: Yes Anxiety POA: Yes HOSPITAL COURSE: This is a 62 year old female with past medical history of anxiety, osteoarthritis, gout, B12 deficiency, CKD II, obesity, ex smoker (quit 2012), depression, COPD/PERCY (noncompliant with CPAP), hypertension, hyperlipidemia, CLL in remission, non-Hodgkin lymphoma s/p chemotherapy in remission, GERD, paroxysmal atrial fibrillation (no AC), recent ischemic lacunar infarct of R frontal periventricular white matter causing central artery occlusion of L retina with vision loss, bilateral carotid stenosis (R 30%, L 60% on ASA, Plavix) who presented to ED 11/09/22 with complaints of headache, blurred vision and dizziness Hypertensive urgency Assessment AND Plan: -Carvedilol 12.5 mg twice daily -Lisinopril 5 mg once daily -Maxide 25 once daily -Hydralazine 10 mg IV every 6 hourly as needed for SBP greater than 180 -Continue to monitor blood pressure titrate (more content not included)...[facility] [id number] Miscellaneous Notes* Telephone Encounter - Simona Mosquera RN - 11/11/2022 10:06 AM EST Patient called to request Zio monitor be sent to her home, rather than coming in for the appointment. Fax sent to [facility]. * Telephone Encounter - Simona Mosquera RN - 11/11/2022 8:29 AM EST Patient called to ask about applying Zio monitor after discharge from hospital. Returned patient call, left vm; offered options for nurse visit or to have monitor mailed to home. [facility] NoteHNO ID: [id number] Author: Sarah Kerr RN Service: Care Management Author Type: Registered Nurse Type: Care Mgt Initial Assessment Filed: 11/10/2022 2:34 PM Note Text: CARE MANAGEMENT: ASSESSMENT AND DISCHARGE PLAN SERVICE DATE: November 10, 2022 SERVICE TIME: 1100 PRIMARY CARE PHYSICIAN: Fernie Paredes DO Primary Contact: Extended Emergency Contact Information Primary Emergency Contact: Ashu Galeano Address: [address] [place], [place] [id number] [facility] Mobile Relation: Spouse ADMISSION STATUS: Inpatient Insurance Provider: MMO [employer] NEEDS PRIOR TO DISCHARGE Needs Prior to Discharge: None;Discharge Prescriptions POTENTIAL TRANSITION PLANS No Services Indicated Based on clinical judgement, Care Management will address the following needs: Medical Patient's perception of need for this admission: HTN urgency ADVANCE DIRECTIVES Current Advance Directive: None Cyber [employer] Systems Specialist Attempted to Assist with AD Completion: Yes Action: Education Provided MS/BEHAVIOR Baseline Mental Status Prior to this Illness what was the patient's Baseline Mental Status?: Alert AND Oriented Prior to this illness, has anyone described the patient having any of the following behaviors?: Not Applicable Relationship of the informant to the patient:: Self READMISSION Last Discharge Date: 11/02/22 Is this Within the Past 30 days? 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 Fernie Paredes Last Known Visit: 3 months ago, has next appt. end october Does the patient have transportation upon discharge?: Yes Use of any community resources?: No Does the patient have a stable and supportive living arrangement and home setting?: Yes Are there any potential risks or gaps identified by risk/functional/fall,etc. scores in the EMR?: No Any potential risks related to substance abuse and/or behavioral health?: No Based on clinical judgement, Care Management will address the following needs: Medical CAREGIVER ASSESSMENT Caregiver is ready, willing and able to meet the patient's needs as recommended by the inter-professional team:: No Caregiver needed Patient's transition needs and plan for meeting these needs: Return home with supportive sposue MEDICAL Medical Needs: Two or more chronic diseases;Stroke/Cognitive defects Health Issues Impacting Discharge Plan: Uncontrolled;Chronic Uncontrolled: HTN urgency Chronic: HTV,CVA, Left central artery occlusion of retina, PERCY-non compliant with CPAP Medication Adherance I am convinced of the importance of my prescription medication: 0 - Agree Completely I worry that my prescription medication will do more harm than good to me : 0 - Disagree Completely I feel financially burdened by my [id number] expenses for my prescription medication:: 0 - Disagree Completely Risk Score: 0 Patient is categorized as: Low risk < 2 No social discharge barriers identified at this time. No behavioral/cognitive discharge barriers identified at this time. No functional discharge barriers identified at this time. FREEDOM OF CHOICE EXPLAINED: [place] of Choice Given: No Reason Not Given: No placements necessary Are you interested in bedside delivery of your medications? No Is Patient Psychosocially Complex?: No ASSESSMENT AND PLAN:EMR reviewed, met with pt and spouse at bedside, introduced self and explained CM role. Pt was discharged from the hospital 10/31 for a stroke workup. Pt lives at home with spouse, independently, was driving prior to blurry vision in left eye where eye Had found a clot and sent her to the ED for CVA workup. No deficits except vision loss in left eye. Pt just had sleep study, waiting for results, non compliant with CPAP, hoping she qualifies for Inspire instead. Pt is being started on Elliquis, discussed discount cards, 1st month free, then $10 copay as long as she has commercial insurance. Do not anticipate dischrge needs. CM will continue to follow. SIGNATURE: Sarah Kerr RN PATIENT NAME: Elena Galeano DATE: November 10, 2022 TIME: 2:28 PM CONTACT #: [id number] NoteHNO ID: [id number] Author: Manohar Rao MD Service: Hospital Medicine Author Type: Physician Type: Progress Notes Filed: 11/10/2022 4:23 PM Note Text: DEPARTMENT OF HOSPITAL MEDICINE PROGRESS NOTE SERVICE DATE: 11/10/2022 SERVICE TIME: 1:02 PM Hospital Medicine/Primary Attending: Crow Curiel MD NIGHT AND WEEKEND COVERAGE: SIPSEY COVERAGE: Days: [phone], please page attending physician. Nights: [phone], please page [place] Hospitalist Night coverage pager [phone]. Subjective INTERVAL HPI: A 62-year-old female with past medical history of PERCY, central artery occlusion, obesity, hypertension, bilateral carotid stenosis, anxiety, depression, history of PVCs, presented to the hospital on November 09 with complaints of mild headache, lightheadedness and mild shortness of breath. Patient was found to be extremely hypertensive with systolic blood pressure in the 200s. Patient was started on a Cardizem drip and was admitted to the intensive care unit for further extensive treatment and monitoring. In the ICU patient was started on nicardipine. Patient's blood pressure medications were restarted home Coreg, lisinopril, aspirin Plavix and Maxide. Following blood pressure improved and was considered stable for the floor. I cardiology was consulted in the morning for Need for possible long-term anticoagulation. Patient apparently did have a short run of atrial fibrillation with RVR during her hospitalization. Patient was started on Eliquis 5 mg twice daily. Current Facility-Administered Medications Medication Dose Route Frequency lisinopril 5 mg tab(s) (ZESTRIL, PRINIVIL) 5 mg ORAL DAILY carvedilol 12.5 mg tab(s) (COREG) 12.5 mg ORAL BID w MEALS albuterol HFA 90 mcg/actuation 2 Puff (PROVENTIL HFA, VENTOLIN HFA) 2 Puff INHALATION q 6 H PRN fenofibrate 200 mg cap(s) (LOFIBRA) 200 mg ORAL DAILY buPROPion SR 150 mg tab(s) (ZYBAN SR; WELLBUTRIN SR) 150 mg ORAL BID clopidogrel 75 mg tab(s) (PLAVIX) 75 mg ORAL DAILY triamterene-hydroCHLOROthiazide 37.5-25 mg 1 tablet (MAXZIDE-25) 1 tablet ORAL DAILY pantoprazole DR 40 mg tab(s) (PROTONIX) 40 mg ORAL DAILY (6 AM) escitalopram oxalate 20 mg tab(s) (LEXAPRO) 20 mg ORAL DAILY traZODone 100 mg tab(s) (DESYREL) 100 mg ORAL AT BEDTIME NaCl 0.9% iv flush bag 20 mL INTRAVENOUS PRN ondansetron orally disintegrating 4 mg tab(s) (ZOFRAN ODT) 4 mg ORAL q 6 H PRN Or ondansetron (PF) 4 mg injection (ZOFRAN) 4 mg INTRAVENOUS q 6 H PRN acetaminophen 650 mg tab(s) (TYLENOL) 650 mg ORAL q 4 H PRN niCARdipine iv infusion 40 mg in NaCl (iso-osmotic) 200 mL (CARDENE) 2.5-15 mg/hr INTRAVENOUS CONTINUOUS hydrALAZINE 10 mg injection (APRESOLINE) 10 mg INTRAVENOUS q 6 H PRN apixaban 5 mg tab(s) (ELIQUIS) 5 mg ORAL BID Objective PHYSICAL EXAM: BP 135/67 Pulse 53 Temp (Src) 98.7 (Oral) Resp 22 Ht 5' 5 (1.65m) Wt 220 lb 7.4 oz (100.0kg) SpO2 95% LMP 11/18/2011 BMI 36.69 kg/(m2). O2 Therapy: Room Air, Liters: 2 Physical Exam Performed Constitutional: In no apparent distress. Vital signs stable Eye: Pupils are equal. Extraocular motions intact ENMT: No visible external trauma. Hearing grossly intact. Neck: No Jugular Vein Distention Cardiovascular: Regular rate and rhythm. S1 and S2, without murmurs, without gallops, without rubs Respiratory: Chest with clear breath sounds bilaterally. No wheezes, no rales, no rhonchi Gastrointestinal: Soft, without detectable tenderness. No sign of distention. No rebound or guarding, no masses palpated. Bowel sounds present Genitourinary: Bladder soft Musculoskeletal: Good range of motion of all major joints. Extremities without clubbing, without cyanosis, without edema Integumentary: No rash, no bruising, no lesions Neurologic: Oriented to person, place and time. No focal sensory or strength deficits. Speech normal. Follows commands. Psychiatric: Calm, cooperative, appropriate Lines, Drains, and Airways Line Duration Peripheral 11/09/22 1505 Right Antecubital 20 Gauge <1 day Reviewed lines and needs to be continued: REASONS: Intravenous fluids DATA: Diagnostic tests reviewed for today's visit: Most recent labs Most recent imaging Most recent EKG CBC, Coags, BMP, Mg, Phos Recent Labs 11/10/22 0403 11/09/22 1506 WBC 7.45 4.63 HB 11.2* 12.3 HCT 35.0* 36.9 PLT 206 236 NA 145* 144 K 4.4 4.5 CHLOR 105 105 CO2 31* 29 BUN 9 8 CREAT 0.84 0.91 GLUC 111* 90 CA 8.8 9.3 MG 1.4* -- P 4.1 -- Assessment/Plan Problem List Hypertensive urgency POA: Yes Central artery occlusion of retina, left POA: Yes Obesity (BMI 30-39.9) POA: Yes Essential hypertension POA: Yes PERCY (obstructive sleep apnea) POA: Yes Carotid stenosis, bilateral POA: Yes Anxiety POA: Yes HOSPITAL COURSE: This is a 62 year old female with past medical history of anxiety, osteoarthritis, gout, B12 deficiency, CKD II, obesity, ex smoker (quit 2012), depression, (more content not included)...[facility] [id number] Note HNO ID: [id number] Author: Crow Curiel MD Service: Critical Care Author Type: Physician Type: Progress Notes Filed: 11/10/2022 11:32 AM Note Text: ICU DAILY PROGRESS NOTE Admit Date: 11/09/2022 SERVICE DATE: 11/10/2022 Reason for Follow Up: Hypertensive urgency Assessment/Plan ASSESSMENT: Principal Problem: Hypertensive urgency POA: Yes Active Problems: Central artery occlusion of retina, left POA: Yes, recent Obesity (BMI 30-39.9) POA: Yes Essential hypertension POA: Yes PERCY (obstructive sleep apnea) POA: Yes Carotid stenosis, bilateral POA: Yes Anxiety POA: Yes Hypomagnesemia, POA: Yes COPD/ex-smoker, POA: Yes PAF, POA: Yes Plan: Blood pressure improved, off nicardipine Will consult cardiology, possible need for long-term anticoagulation Resume antihypertensives and watch blood pressure Mag replacement As needed albuterol No objection to transfer out of ICU ICU Checklist Last Documented/Reviewed time: 11/09/2022 10:21 PM A= Assess, Prevent, Manage Pain Pain adequately controlled?: Yes C= Choice of Sedation and Analgesia RASS at Goal?: (Comment: NA) B= Both Spontaneous Awakening and Breathing Trials Ventilator: None D= Delirium: Assess, Prevent and Manage ICU Delirium Status: CAM Negative - no action required Sleep adequate?: Yes Restraint Status: None E= Early Mobility/Excercise ICU Mobility: ICU Mobility-Pt Has Been Out of Bed: Yes F= Family Engagement and Empowerment ICU plan of care visit at bedside in last 24 hours: Yes, Provider, RN, Patient/ designee ICU Disposition: ICU Disposition- Is Patient Clinically Ready to Transfer to RNF or SDU?: No Discharge Planning: Home Prevention: Line Status: None [place] Status: None Pressure Injury Status: None GI/Stress Ulcer Prophylaxis: PPI Nutrition is at Goal: Yes VTE Prophylaxis: Chemoprophylaxis: Heparin SQ Mechanical Prophylaxis: No mechanical prophylaxis Patient/Family Updated: Discussed with patient and family at bedside Plan of care discussed with: ICU Team and RN. Subjective HPI: 62-year-old female with history of anxiety, depression, recent ischemic CVA with central artery occlusion of left retina and visual loss/on Plavix and aspirin, HTN, PAF/no anticoagulation, COPD, recent diagnosis of PERCY CKD 2, quit smoking 2012, CLL/NHL both in remission, admitted 11/09 for hyper tensive urgency presented with headache blurred vision and dizziness as well as chest pain, blood pressure 241/108, given labetalol, and amlodipine and admitted to ICU on nicardipine drip 11/10: Feeling much better, off nicardipine drip, on room air, improved headache and dizziness, no blurred vision, still have some intermittent chest pain, no nausea vomiting or diarrhea, denies short of breath wheezing or cough Objective Physical Exam BP 120/56 Pulse 52 Temp (Src) 98.7 (Oral) Resp 21 Ht 5' 5 (1.65m) Wt 220 lb 7.4 oz (100.0kg) SpO2 94% LMP 11/18/2011 BMI 36.69 kg/(m2). O2 Therapy: Room Air, Liters: 2 General : Well nourished, in no distress Eyes: Pupils equal, round. No scleral icterus ENT: Trachea midline, no JVD Heart: RRR, decreased sounds, no murmurs Lungs: clear to auscultation bilaterally, no wheezes rales, or rhonchi. Abdomen: Soft and nontender, normal bowel sounds Musculoskeletal: no bony or joint deformity, no edema Neuro: Alert and oriented x3, moves all extremities, following commands Skin: No acute rash or skin change, skin is normal to palpation DATA: LABS: Recent Labs 11/10/22 0403 11/09/22 1506 WBC 7.45 4.63 HB 11.2* 12.3 HCT 35.0* 36.9 PLT 206 236 NA 145* 144 K 4.4 4.5 CHLOR 105 105 CO2 31* 29 BUN 9 8 CREAT 0.84 0.91 GLUC 111* 90 CA 8.8 9.3 MG 1.4* -- P 4.1 -- Recent Labs 11/09/22 1932 CK 149 MB 2.6 TROPT <0.010 CULTURES: CXR : No acute finding CT brain: No acute changes CT Abdomen: ECHO: Portions of this note including HPI, ROS, impression/plan, and examination may have been copied forward as to provide important historical information essential in contributing to medical decision making. Documentation has been reviewed and edited as necessary to support clinical decision making for today's visit and to reflect my own independent evaluation of this patient on 11/10/2022 Crow Curiel MD 11:14 AM 11/10/2022[id number] Miscellaneous Notes* Telephone Encounter - Maddie Diehl - 11/10/2022 9:02 AM EST Patient called because she is currently in ICU and cant make her appointment today, but would like to receive a phone call about her results from her sleep study. [facility]23 NoteHNO ID: [id number] Author: Marcus Hodges MD Service: eHospital Author Type: Physician Type: Progress Notes Filed: 11/09/2022 7:15 PM Note Text: e[facility]ospital Provider Note Call Initiation By: Bedside Caregiver: Provider Primary Reason for Call: Admission to ICU Objective Data:: 220-234/100s BP Assessment: 62 F hypertension, recent central retinal artery occlusion, BL BP of 134/61 presenting with chest pain, headache blurry vision, unresponsive to oral antihypertensives, needing nicardipine drip to control BP Intervention(s): Review admission plan of care Plan/Intervention (other): Neuro - GUERRERO, blurry vision but no localizing signs; CVS - drip antihypertensives, would target 160 systolic; Pulm no edema no oxygen; monitor I/os and lights; CBCs, ICU bundle care /GLEN Collaboration: Plan of care discussed with [facility] Hot Metal Car 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 SIGNATURE: Marcus Hodges MD PATIENT NAME: Elena Galeano DATE: November 09 2022 TIME: 07:13 PMNationwide Children'S [id number] History of Past illness Narrative* Problem Noted Date Resolved Date Hypertensive urgency 11/09/2022 11/12/2022 Paroxysmal atrial fibrillation 10/31/2022 0 11/01/2022 Osteoarthrosis, unspecified whether generalized or localized, lower leg 05/19/2015 05/19/2015 Lymphocytosis 12/16/2011 09/01/2012 Splenomegaly 12/16/2011 09/01/2012 documented as of this encounter (statuses as of 11/17/2022) [facility] of Past illness Narrative* Problem Noted Date Resolved Date Hypertensive urgency 11/09/2022 11/12/2022 Paroxysmal atrial fibrillation 10/31/2022 0 11/01/2022 Osteoarthrosis, unspecified whether generalized or localized, lower leg 05/19/2015 05/19/2015 Lymphocytosis 12/16/2011 09/01/2012 Splenomegaly 12/16/2011 09/01/2012 documented as of this encounter (statuses as of 11/17/2022) [facility] of Past illness Narrative* Problem Noted Date Resolved Date Hypertensive urgency 11/09/2022 11/12/2022 Paroxysmal atrial fibrillation 10/31/2022 0 11/01/2022 Osteoarthrosis, unspecified whether generalized or localized, lower leg 05/19/2015 05/19/2015 Lymphocytosis 12/16/2011 09/01/2012 Splenomegaly 12/16/2011 09/01/2012 documented as of this encounter (statuses as of 11/19/2022) [facility] of Past illness Narrative* Problem Noted Date Resolved Date Hypertensive urgency 11/09/2022 11/12/2022 Paroxysmal atrial fibrillation 10/31/2022 0 11/01/2022 Osteoarthrosis, unspecified whether generalized or localized, lower leg 05/19/2015 05/19/2015 Lymphocytosis 12/16/2011 09/01/2012 Splenomegaly 12/16/2011 09/01/2012 documented as of this encounter (statuses as of 11/24/2022) [facility] of [facility] illness Narrative* Problem Noted Date Resolved Date Hypertensive urgency 11/09/2022 11/12/2022 Paroxysmal atrial fibrillation 10/31/2022 0 11/01/2022 Osteoarthrosis, unspecified whether generalized or localized, lower leg 05/19/2015 05/19/2015 Lymphocytosis 12/16/2011 09/01/2012 Splenomegaly 12/16/2011 09/01/2012 documented as of this encounter (statuses as of 12/06/2022) [facility] of [facility] Narrative* Problem Noted Date Resolved Date Hypertensive urgency 11/09/2022 11/12/2022 Paroxysmal atrial fibrillation 10/31/2022 0 11/01/2022 Osteoarthrosis, unspecified whether generalized or localized, lower leg 05/19/2015 05/19/2015 Lymphocytosis 12/16/2011 09/01/2012 Splenomegaly 12/16/2011 09/01/2012 documented as of this encounter (statuses as of 12/13/2022) [facility] of [facility] illness Narrative* Problem Noted Date Resolved Date Hypertensive urgency 11/09/2022 11/12/2022 Paroxysmal atrial fibrillation 10/31/2022 0 11/01/2022 Osteoarthrosis, unspecified whether generalized or localized, lower leg 05/19/2015 05/19/2015 Lymphocytosis 12/16/2011 09/01/2012 Splenomegaly 12/16/2011 09/01/2012 documented as of this encounter (statuses as of 02/05/2023) [facility] Narrative* Problem Noted Date Resolved Date Hypertensive urgency 11/09/2022 11/12/2022 Paroxysmal atrial fibrillation 10/31/2022 0 11/01/2022 Osteoarthrosis, unspecified whether generalized or localized, lower leg 05/19/2015 05/19/2015 Lymphocytosis 12/16/2011 09/01/2012 Splenomegaly 12/16/2011 09/01/2012 documented as of this encounter (statuses as of 04/07/2023) [facility] Narrative* Problem Noted Date Diagnosed Date Resolved Date Hypertensive urgency 11/09/2022 023 Paroxysmal atrial fibrillation 10/31/2022 11/01/2022 Osteoarthrosis, unspecified whether generalized or localized, lower leg 05/19/201504/24 Lymphocytosis 12/16/2011 09/01/2012 Splenomegaly 12/16/2011 09/01/2012 documented as of this encounter (statuses as of 05/31/2023) [facility] Narrative* Problem Noted Date Diagnosed Date Resolved Date Hypertensive urgency 11/09/2022 023 Paroxysmal atrial fibrillation 10/31/2022 11/01/2022 Osteoarthrosis, unspecified whether generalized or localized, lower leg 05/19/201504/24 Lymphocytosis 12/16/2011 09/01/2012 Splenomegaly 12/16/2011 09/01/2012 documented as of this encounter (statuses as of 07/01/2023) [facility] Narrative* Problem Noted Date Diagnosed Date Resolved Date Hypertensive urgency 11/09/2022 023 Paroxysmal atrial fibrillation 10/31/2022 11/01/2022 Osteoarthrosis, unspecified whether generalized or localized, lower leg 05/19/201504/24 Lymphocytosis 12/16/2011 09/01/2012 Splenomegaly 12/16/2011 09/01/2012 documented as of this encounter (statuses as of 08/06/2023) [facility] Narrative* Problem Noted Date Diagnosed Date Resolved Date Hypertensive urgency 11/09/2022 023 Paroxysmal atrial fibrillation 10/31/2022 11/01/2022 Osteoarthrosis, unspecified whether generalized or localized, lower leg 05/19/201504/24 Lymphocytosis 12/16/2011 09/01/2012 Splenomegaly 12/16/2011 09/01/2012 documented as of this encounter (statuses as of 08/09/2023) [facility] of Past illness Narrative* Problem Noted Date Diagnosed Date Resolved Date Hypertensive urgency 11/09/2022 023 Paroxysmal atrial fibrillation 10/31/2022 11/01/2022 Osteoarthrosis, unspecified whether generalized or localized, lower leg 05/19/201504/24 Lymphocytosis 12/16/2011 09/01/2012 Splenomegaly 12/16/2011 09/01/2012 documented as of this encounter (statuses as of 08/16/2023) [facility] of Past illness Narrative* Problem Noted Date Diagnosed Date Resolved Date Hypertensive urgency 11/09/2022 023 Paroxysmal atrial fibrillation 10/31/2022 11/01/2022 Mixed hyperlipidemia 02/04/2017 023 Osteoarthrosis, unspecified whether generalized or localized, lower leg 05/19/201504/24 Lymphocytosis 12/16/2011 09/01/2012 Splenomegaly 12/16/2011 09/01/2012 documented as of this encounter (statuses as of 09/11/2023) [facility] Instructions* Patient Instructions* Ciro Lyles MD - 11/05/2022 4:39 PM EST If you have any questions please contact our office at [phone]. After office hours or on the weekend, please call Dr. Lyles on his cell phone at [phone]. documented in this encounterMi[facility]01-13-[facility]23 History of Present illness Narrative* Ciro Lyles MD - 11/05/2022 4:33 PM EST ASSESSMENT/PLAN: 1. Central retinal artery occlusion, left eye - ICD9: 362.31, ICD10: H34.12 (primary diagnosis) - OCT MACULA CIRRUS OU (BOTH EYES) - FUNDUS PHOTOS OU (BOTH EYES) - FUNDUS PHOTOS OU (BOTH EYES) 2. Ischemic stroke (HCC) - ICD9: 434.91, ICD10: I63.9 Continue care with Cardiology. 3. Essential hypertension - ICD9: 401.9, ICD10: I10 Continue to monitor with primary care physician. 4. Hypercholesteremia - ICD9: 272.0, ICD10: E78.00 Continue to monitor with primary care physician. 5. Paroxysmal atrial fibrillation (HCC) - ICD9: 427.31, ICD10: I48.0 Continue care with Cardiology. Recommended patient see Dr. Garza for refraction and glasses. Ciro Lyles MD I have confirmed and edited as necessary the relevant ophthalmic history, review of systems, surgical history, and ophthalmological examination findings as obtained by the ophthalmic technical staff.I have seen and examined Elena Galeano. I have discussed the examination findings, diagnosis, andtreatment options with Elena Galeano and/or her family. I have also reviewed and agree with the assessment and plan as stated above and agree with all its relevant components. I gave the patient the opportunity to ask questions about the findings, diagnosis, and treatment options. documented in this encounter[facility]01-09-2023 NoteHNO ID: [id number] Author: Martell Crespo MD Service: Hospital Medicine Author Type: Physician Type: Progress Notes Filed: 11/01/2022 5:16 PM Note Text: DEPARTMENT OF HOSPITAL MEDICINE PROGRESS NOTE SERVICE DATE: 11/01/2022 SERVICE TIME: 5:13 PM Hospital Medicine/Primary Attending: Martell Crespo MD NIGHT AND WEEKEND COVERAGE: SIPSEY COVERAGE: Days: [phone], please page attending physician. Nights: [phone], please page [place] Hospitalist Night coverage pager [phone]. Subjective INTERVAL HPI: able to walk to bathroom without any issues Current Facility-Administered Medications Medication Dose Route Frequency carvedilol 12.5 mg tab(s) (COREG) 12.5 mg ORAL BID w MEALS traZODone 100 mg tab(s) (DESYREL) 100 mg ORAL AT BEDTIME escitalopram oxalate 20 mg tab(s) (LEXAPRO) 20 mg ORAL DAILY pantoprazole DR 40 mg tab(s) (PROTONIX) 40 mg ORAL BID AC (0600/1600) aspirin, enteric coated 81 mg tab(s) 81 mg ORAL DAILY buPROPion SR 150 mg tab(s) (ZYBAN SR; WELLBUTRIN SR) 150 mg ORAL BID fenofibrate 200 mg cap(s) (LOFIBRA) 200 mg ORAL DAILY albuterol 2.5 mg /3 mL (0.083 %) 2.5 mg (PROVENTIL) 2.5 mg INHALATION q 6 H PRN NaCl 0.9% iv flush bag 20 mL INTRAVENOUS PRN hydrALAZINE 10 mg injection (APRESOLINE) 10 mg INTRAVENOUS q 6 H PRN acetaminophen 650 mg tab(s) (TYLENOL) 650 mg ORAL/FEEDING TUBE q 6 H PRN sodium chloride 0.9 % (flush) 2-10 mL (BD POSIFLUSH) 2-10 mL INTRAVENOUS DIRECTED PRN And perflutren lipid microspheres 1.1 mg/mL 1.3 mL injection (DEFINITY) 1.3 mL INTRAVENOUS DIRECTED PRN enoxaparin 100 mg injection (LOVENOX) 1 mg/kg/dose SUBCUTANEOUS q 12 HR [START ON 11/02/2022] triamterene-hydroCHLOROthiazide 37.5-25 mg 1 tablet (MAXZIDE-25) 1 tablet ORAL DAILY Objective PHYSICAL EXAM: BP 165/78 Pulse 58 Temp (Src) 97.4 (Oral) Resp 20 Ht 5' 5 (1.65m) Wt 212 lb 1.3 oz (96.2kg) SpO2 98% LMP 11/18/2011 BMI 35.29 kg/(m2). O2 Therapy: Room Air Physical Exam Performed GENERAL: Alert, no distress, cooperative LUNGS: Lungs clear to auscultation, Good diaphragmatic excursion CARDIAC: Normal S1 and S2; no rubs, murmurs, or gallops ABDOMEN: Abdomen soft, non-tender, BS normal, No masses or organomegaly EXTREMITIES: Extremities normal, no deformities, edema, clubbing or skin discoloration. Good capillary refill., No ulcers NEURO: Gait normal. Reflexes normal and symmetric. Sensation grossly intact, Cranial nerves II-XII intact PULSES: 2+ radial, 2+ carotid Lines, Drains, and Airways Line Duration Peripheral 10/30/22 1630 Assessment Short Right Antecubital 20 Gauge 2 days Reviewed lines and needs to be continued: REASONS: Telemetry DATA: Diagnostic tests reviewed for today's visit: Most recent labs Most recent imaging Assessment/Plan Problem List Ischemic stroke (HCC) POA: Yes Central artery occlusion of retina, left POA: Yes Dyslipidemia POA: Yes Essential hypertension POA: Yes PERCY (obstructive sleep apnea) POA: Yes Depressive disorder POA: Yes Obesity, Class II, BMI 35-39.9 POA: Yes HOSPITAL COURSE: Elena Galeano is a 62 year old female presented with past medical history of CLL in remission, non-Hodgkin lymphoma status post chemotherapy in remission, paroxysmal A. fib not on anticoagulation, GERD, hypertension, dyslipidemia, PERCY noncompliant to CPAP, depression who presented to the ER on 10/30/2022 for evaluation of left eye vision loss. CT head was unremarkable. CT angiogram of the head and neck showed R ICA stenosis 30%, LICA stenosis 60%, moderate right-sided and mild left-sided vertebral arterial stenosis, moderate left distal and mild right distal ICA stenosis, proximal left P2 moderate stenosis. MRI brain showed Findings suggesting small subacute nonhemorrhagic lacunar infarct right frontal periventricular white matter. Continue aspirin, intolerant to statin, continue repatha. Continue therapeutic lovenox while evaluating for possible a fib Principal Problem: Ischemic stroke (HCC) POA: Yes Central artery occlusion of retina, left POA: Yes -Continue aspirin, intolerant to statin, continue repatha. Continue therapeutic lovenox while evaluating for possible a fib Dyslipidemia POA: Yes - intolerant to statin - continue repatha and fenofibrate Essential hypertension POA: Yes - resume home triameterene PERCY (obstructive sleep apnea) POA: Yes -non complaint with CPAP Depressive disorder POA: Yes - continue home medications Obesity, Class II, BMI 35-39.9 POA: Yes - service counselor Medication and Non-Pharmacologic VTE Prophylaxis/Anticoagulants Anticoagulant AND Antiplatelet Medications (From admission, onward) Start Dose Route Frequency Last Action Ordered Stop 10/31/22 1200 enoxaparin 100 mg injection (LOVENOX) (enoxaparin injection (LOVENOX)) 1 mg/kg/dose SUBCUTANEOUS EVERY 12 HOURS Given, 11/01 1304 10/31/22 1158 -- 10/31/22 0900 aspirin, enteric coated 81 mg tab(s) 81 mg ORAL DAILY Given, (more content not included)...[facility] 11-[facility] Instructions* Patient Instructions* Ciro Lyles MD - 11/01/2022 9:32 AM EST If you have any questions please contact our office at [phone]. After office hours or on the weekend, please call Dr. Lyles on his cell phone at [phone]. documented in [facility] encounter[facility]01-[facility]-2023 NoteHNO ID: [id number] Author: Ketty Sandhu MD Service: Neurology General Author Type: Physician Type: Plan of Care Filed: 11/01/2022 11:02 AM Note Text: CUS is negative for high grade stenosis. Her L central retinal artery occlusion is likely from A.fib Continue AC and lipitor 80 mg F/u in neurology clininc in 2 weeks UPDATE 11am MRI brain showed small right frontal stroke which further confirm being from A.fib (as it is on the contralateral side of her symptoms). Plan to to anticoagulate as previously recommended. No need to hold AC as stroke is small Ketty Sandhu M.D. Neurology/Neuromuscular medicine Neurology board certified [facility]01-09-2023 History of Present illness Narrative* Danielle Garcia - 11/01/2022 6:49 AM EST Sleep Study Check-In Documentation Date: November 01, 2022 Name: Elena Galeano Comments: HST was returned in working order with all sleep questionnaires Danielle Garcia * Kira Quinn - 10/26/2022 11:07 AM EST [employer]# [id number] , date shipped out 10/26/21 Tracking mailout:[id number] Tracking return: [phone] * Char Andino - 10/13/2022 10:55 AM EST Patient called back and has been redeployed for 10/27. * Char Andino - 10/13/2022 9:55 AM EST Called and left message to advise the patient that the test failed due to the pulse ox and see if she would like to try again. * Kira Quinn - 10/13/2022 6:22 AM EST Sleep Study Check-In Documentation Date: October 13, 2022 Name: Elena Galeano Comments: HST was returned in work order. Study failed due to pulse ox. Unable to redeploy. Patientwill be contacted for repeat testing. Kira Quinn * Danielle Garcia - 10/07/2022 7:54 AM EST [employer]# [id number] Mail out date:10/07/22 [employer] Shipping #:[id number] [employer] Return #:[id number] * Gerry Herman III, PhD - 09/30/2022 1:24 PM EST September 30, 2022 Standing PSG Orders signed in the last 90 days None Future PSG Orders signed in the last 90 days Ordered Auth. provider HOME SLEEP APNEA TEST (HSAT) [[id number]] 09/28/22 Eddi Randhawa MD Assoc. diagnoses: PERCY (obstructive sleep apnea) [G47.33] Q: Indications: A: Obstructive sleep apnea Q: STOP-BANG conditions - Select All That Apply: A: AGE > 50 A2: SNORING that is loud or disruptive A3: TIREDNESS, fatigue or sleepiness during the day A4: high blood PRESSURE Q: Current use of supplemental oxygen during sleep period?: A: No All Prior Sleep Studies (past 365 days) Some values may be hidden. Unless noted otherwise, only the newest values recorded on each date aredisplayed. Sleep Studies HOME SLEEP APNEA TEST (HSAT) Future Expected: Expires: 09/28/23 BMI Readings from Last 2 Encounters: 01/01/22 : 34.11 kg/m 12/25/21 : 34.11 kg/m PAST MEDICAL HISTORY Diagnosis Date Anxiety Depression Hypertension Lymphoma (HCC) 10/2010 Right knee pain 06/12/2014 The medical record was reviewed to determine if the proposed sleep study conforms to the [facility] Practice Parameters for the Indications for Polysomnography and Related Procedures, or if the sleep studyis indicated for other reasons. Indications for study: PERCY suspected with comorbid medical or sleep disorders: Significant, persistent cardiac arrhythmias Sleep study to be performed: Home Sleep Apnea Test (HSAT) Special instructions: None-follow laboratory protocol [facility] Staff Note: I have read the above protocol, edited as needed, and agree to the plan. Gerry Herman III, PhD 3:25 PM, 09/30/2022 * Althea Kingsley - 09/29/2022 12:05 PM EST September 29, 2022 An order has been received for Home Sleep Apnea Test (HSAT) from [facility]. [facility] Staff. Visit prep complete. Comments :No The sleep study is scheduled for 10/11. Insurance: Payor: MMO / Plan: MMO SU[employer] PLUS / Product Type: PPO / Payer/Plan Subscr Sex Relation Sub. Ins. ID Effective Group Num 1. MMO - MMO SUP* ASHU GALEANO 05/10/1957 Male Spouse [id number] 04/23/20 [id number] [address] Althea Kingsley documented in this encounterMi[facility]01-08-2023 NoteHNO ID: [id number] Author: Martell Crespo MD Service: Hospital Medicine Author Type: Physician Type: Plan of Care Filed: 10/31/2022 4:08 PM Note Text: Patient admitted with a 19. HANDP reviewed. Labs and imaging reviewed. Discussed with nursing. Patient independently assessed. Carotid ultrasound findings noted. Patient reports history of paroxysmal atrial fibrillation in the past. 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 Martell Crespo MD 10/31/22 4:08 PMNationwide Children'S [id number] History of Past illness Narrative* Problem Noted Date Resolved Date Paroxysmal atrial fibrillation 10/31/2022 0 11/01/2022 Osteoarthrosis, unspecified whether generalized or localized, lower leg 05/19/2015 05/19/2015 Lymphocytosis 12/16/2011 09/01/2012 Splenomegaly 12/16/2011 09/01/2012 documented as of this encounter (statuses as of 11/01/2022) [facility] History of Past illness Narrative* Problem Noted Date Resolved Date Paroxysmal atrial fibrillation 10/31/2022 0 11/01/2022 Osteoarthrosis, unspecified whether generalized or localized, lower leg 05/19/2015 05/19/2015 Lymphocytosis 12/16/2011 09/01/2012 Splenomegaly 12/16/2011 09/01/2012 documented as of this encounter (statuses as of 11/05/2022) [facility] History of Past illness Narrative* Problem Noted Date Resolved Date Paroxysmal atrial fibrillation 10/31/2022 0 11/01/2022 Osteoarthrosis, unspecified whether generalized or localized, lower leg 05/19/2015 05/19/2015 Lymphocytosis 12/16/2011 09/01/2012 Splenomegaly 12/16/2011 09/01/2012 documented as of this encounter (statuses as of 11/11/2022) [facility] History of Present illness Narrative* Ciro Lyles MD - 10/30/2022 1:30 PM EST ASSESSMENT/PLAN: 1. Central retinal artery occlusion, left eye - ICD9: 362.31, ICD10: H34.12 (primary diagnosis) 2. Sudden loss of vision, left - ICD9: 368.11, ICD10: H53.132 3. Headache, temporal - ICD9: 784.0, ICD10: R51.9 - AQUEOUS TAP, THERAPEUTIC OS (LEFT EYE) Patient to go to [place] [facility] department immediately for stroke work up and GCA work up 4. After-cataract with vision obscured of both eyes - ICD9: 366.53, ICD10: H26.493 - Plan YAG laser once left eye is stable 5. Follicular lymphoma, unspecified follicular lymphoma type, unspecified body region (HCC) - ICD9:202.00, ICD10: C82.90 6. Essential hypertension - ICD9: 401.9, ICD10: I10 7. Mixed hyperlipidemia - ICD9: 272.2, ICD10: E78.2 8. Paroxysmal atrial fibrillation (HCC) - ICD9: 427.31, ICD10: I48.0 - Continue to monitor with primary care physician I have confirmed and edited as necessary the relevant ophthalmic history, review of systems, surgical history, and ophthalmological examination findings as obtained by the ophthalmic technical staff.I have seen and examined Elena Galeano. I have discussed the examination findings, diagnosis, andtreatment options with Elena Galeano and/or her family. I have also reviewed and agree with the assessment and plan as stated above and agree with all its relevant components. I gave the patient the opportunity to ask questions about the findings, diagnosis, and treatment options. Ciro Lyles MD documented in this encounterMi[facility] Hospital12-07-2022 History of Present illness Narrative* Naty Bhakta MD - 09/29/2022 12:40 PM EST Chief Complaint Patient presents with Follow-up Disease History Diagnostics from OSH in 2011 CLL/SLL: - 05/2012: symptoms of shortness of breath and went to ED, found to have Splenomegaly 21cm on abd us and lymphocytosis - Bone marrow biopsy: morphology with absolute lymphocytosis composed of small lymphocytes with small round nuclei and clumped chromatin and a 2nd population with more abundant cytoplasm; predominantpopulation of cd19,20,23 with a minor population of cd5,19,20,23,79b; bcl2/igh translocation detected; bcl6, and bcl2 expression noted; 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 Elena Galeano is a 62 y.o. woman with a history of CLL who presents for ongoing follow up and treatment plans. She is here today for a 1 year follow up visit. Since her last visit, she shares that she is doing well. She had an arthrodesis on her SI joint in May 2022 and has since recovered well. She had a colposuspension surgery in August 2022 that she states also went well. She wasstarted on an antibiotic last Tuesday for a sore throat and is feeling better now. She denies any fevers, chills, night sweats, unintentional weight loss, or increased lymphadenopathy. Appetite and energy are stable with no early satiety or abdominal pain. Review of Systems History obtained from chart review and the patient Psychological ROS: negative for depression or anxiety. Ophthalmic ROS: negative for blurry or double vision ENT ROS: negative for sore throat or nasal congestion Allergy and Immunology ROS: negative runny nose or watery eyes. Hematological and Lymphatic ROS: negative for lymph node swelling. Endocrine ROS: negative for temp sensitivity or hives. Respiratory ROS: no cough, shortness of breath, or wheezing Cardiovascular ROS: no chest pain or dyspnea on exertion Gastrointestinal ROS: no abdominal pain, change in bowel habits, or black or bloody stools Genito-Urinary ROS: no dysuria, trouble voiding, or hematuria Musculoskeletal ROS: Yes joint pain, no muscle pain Neurological ROS: no TIA or stroke symptoms Dermatological ROS: negative for rash Allergies Allergen Reactions Nsaids Has CKD-2 Past Medical History: Diagnosis Date A-fib Anemia Arrhythmia ASCUS of cervix with negative high risk HPV B12 deficiency CLL (chronic lymphocytic leukemia) 2012 [id number] on 09-30-2020 Depression Diffuse non-Hodgkin's lymphoma chemotherapy Folate deficiency GERD (gastroesophageal reflux disease) Hiatal hernia Hyperglycemia Hyperlipidemia Hypertension Non-Hodgkin lymphoma 2012 PERCY (obstructive sleep apnea) PVC's (premature ventricular contractions) Social History Socioeconomic History Marital status: Tobacco Use Smoking status: Former Packs/day: 0.75 Years: 35.00 Pack years: 26.25 Types: Cigarettes Quit date: 04/23/2013 Years since quittin.4 Smokeless tobacco: Never Vaping Use Vaping Use: Never used Substance and Sexual Activity Alcohol use: Yes Alcohol/week: 2.0 standard drinks Types: 2 Cans of beer per week Comment: Hx ETOH abuse,and now 2 beers weekly Drug use: Never Sexual activity: Not Currently control/protection: Menopause Family History Problem Relation Age of Onset Hypertension Mother Lipid Disorder Mother Depression Mother Clotting Disorder Mother Dementia Father Breast Cancer Maternal Aunt Cancer- Other Maternal Uncle melanoma Ovarian Cancer Paternal Aunt Cancer Paternal Aunt brain Lung Cancer Maternal Grandfather Hypertension Son Lipid Disorder Daughter No known problems Daughter Autism Grandson Current Outpatient Medications Medication Sig albuterol (VENTOLIN HFA) 108 (90 Base) MCG/ACT Aero Soln inhaler Inhale 2 puffs every 6 hours as needed for Wheezing. amoxicillin-clavulanate 875-125 MG tablet Take 1 tablet by mouth. aspirin EC [address] Take 81 mg by mouth daily with breakfast. OTC budesonide (Pulmicort Flexhaler) 180 MCG/ACT inhaler Inhale 1 puff 2 times daily. Rinse mouth with water after each dose (Patient not taking: Reported on 09/29/2022) buPROPion (Wellbutrin XL) 300 MG tablet XL Take 1 tablet by mouth every morning before breakfast. carveDILOL (Coreg) 12.5 MG tablet Take 1 tablet by mouth 2 times daily with meals. cetirizine 10 MG tablet Take 1 tablet by mouth daily. OTC (Patient not taking: Reported on 09/29/2022) Clindamycin Phos-Benzoyl Perox 1.2-3.75 % Gel Apply 1 Application topically daily. Given by Dermatology Dr. Dejesus cyanocobalamin 1000 MCG tablet Take 1 tablet by mouth daily. Chew 1 tab q daily (Patient not taking: Reported on 09/29/2022) escitalopram 20 MG tablet Take 1 tablet by mouth daily. Evolocumab (Repatha SureClick) 140 MG/ML Solution Auto-injector injection Inject 1 mL under the skin every 14 days. fenofibrate 160 MG tablet Take 1 tablet by mouth daily. folic acid 1 MG tablet Take 1 tablet by mouth daily. (Patient not taking: Reported on 09/29/2022) Mirabegron ER (Myrbetriq) 50 MG tablet Take 1 tablet by mouth daily. (Patient not taking: Reported on 09/29/2022) Misc. Devices Misc by Unknown route. Auto BIPAP max IPAP 14 min EPAP 4 PS 5 set up 02/06/21 DME [facility] (Patient not taking: Reported on 06/07/2022) NON-FORMULARY 3 caps q daily of Balance of Nature oxyCODONE-acetaminophen 5-325 MG per tablet Take 1 tablet by mouth every 6 hours as needed for Moderate Pain for up to 12 doses. pantoprazole (Protonix) [address] tablet DR Take 1 tablet by mouth 2 times daily (take before meals). traZODone 100 MG tablet Take 1 tablet by mouth at bedtime. triamterene-hydrochlorothiazide (Dyazide) 37.5-25 MG per capsule Take 1 capsule by mouth daily. Cancel previous refills Physical Exam Pulse 85, temperature 98.1 F (36.7 C), temperature source Oral, resp. rate 17, height 1.651 m (5' 5), weight 95.3 kg (210 lb 1.6 oz), SpO2 97 %, not currently . ECOG performance status: 0 General: Alert, no apparent distress. HEENT: Pupils equal and reactive, extraocular muscles intact. Mucous membranes are moist. No thrush. No cervical nodes, no thyromegaly. CV: Regular rate and rhythm, no rubs, murmurs, or gallops Pulm: Chest is clear, no wheezing or rales. Abd: The abdomen is soft and non-tender. Bowel sounds are normal. Liver is not enlarged. Spleen is not enlarged. Ext: No edema. Skin: No rashes. Neuro: Patient is alert and oriented times three. Cranial nerves II-XII grossly intact, no focal deficits. Lymph Node examination is as follows: Location Right Left Anterior Cervical neg neg Posterior Cervical neg neg Supraclavicular neg neg Axillary neg neg Inguinal neg neg Results for orders placed or performed in visit on 09/29/22 CBC AND ELECTRONIC DIFF Result Value Ref Range WBC Count 6.19 3.99 - 11.19 K/uL RBC Count 4.09 3.91 - 5.04 M/uL Hemoglobin 13.2 11.4 - 15.2 g/dL Hematocrit 39.8 34.9 - 44.3 % Mean Cell Volume 97.3 79.6 - 97.7 fL Mean Cell Hgb 32.3 25.9 - 33.9 pg Mean Cell Hgb Conc 33.2 31.4 - 35.9 g/dL RBC Distribution 13.6 10.8 - 14.9 % Platelet Count 179 150 - 393 K/uL Mean Platelet Volume 10.4 8.5 - 12.2 fL DIFF STATUS Electronic Differential Segs + Bands Auto 43.5 % Immature Grans % 0.2 % Lymphocyte % Auto 45.1 % Monocyte % Auto 9.2 % Eosinophil % Auto 1.5 % Basophil % Auto 0.5 % Nucleated RBC 0.0 <=0.2 /100 WBC Segs + Bands,Absolute Auto 2.70 1.64 - 7.28 K/uL Immature Grans Absolute <0.04 <=0.08 K/uL Abs Lymph Auto 2.79 1.16 - 3.51 K/uL Abs Winston Auto 0.57 0.22 - 0.87 K/uL Abs Eos Auto 0.09 0.00 - 0.42 K/uL Abs Baso Auto <0.04 0.00 - 0.15 K/uL Assessment and Plan CLL/SLL: Elena Galeano is a 62 y.o. year old woman with CLL/SLL s/p 6 cycles of RCVP followed by 2yrs of Rituxan completed in 04/2014. She is here for a 1 year follow up visit. She has no evidencefor recurrent disease by physical exam or laboratory studies. CBCs and chemistries are stable. There are no indications to initiate treatment, we will continue to follow her with observation. Elevated blood glucose. Slightly elevated today at 126. Not overly concerning. Continue to monitor. Health Maintenance: She is UTD on age-appropriate health screenings. Continue to follow with PCP for general health and screening maintenance. Immunizations: Patient will receive influenza vaccination today. COVID 19: She has not received any COVID-19 vaccinations and she is not interested in doing so at this time. RTC in 1 year. Documented by Lisette Britton, for Dr. Naty Bhakta on 09/29/22 1:52 PM. All medical record entries made by the Lisette Britton, were at my direction and personally dictated by me, Naty Bhakta MD. I have reviewed the chart and agree that the record accurately reflects my personal performance of the history, physical exam, assessment and plan. I have also personally directed, reviewed, and agree with the discharge instructions. [facility] Instructions* Patient Instructions* Miri Vargas RN - 09/29/2022 12:40 PM EST YOUR PRIMARY TEAM Dr. Naty Echols CNP - Nurse Practitioner Sujit Thomason RN - Primary Nurse Miri Alicia, RN- Secondary Nurse Please contact our office if you develop a temperature of 100.4 or greater. CONTACT NUMBERS Clinic phone: [phone] Clinic fax: [phone] MEDICAL RECORDS The Release of Information ([facility]) area is staffed from 8:00 a.m. to 7:00 p.m. and is available for walk in requests from 8:00 a.m. to 4:30 p.m. [facility] is responsible for answering requests for copies of medical records from various requestors such as insurance companies, attorneys, hospitals and patients. Please note it can take up to 2 weeks to complete your request. [phone]; [phone] (fax). DISABILITY FORMS This category includes any form (STD, LTD, FMLA, cancer insurance policy) requiring information to be completed by a physician or nurse practitioner. The forms should be given to the clinic nurse. There is no fee associated with this request but note it may take 2 weeks to complete. The forms cannot be completed during a clinic visit or within 24 hours of your request. It is important to place the patient s name, employee s name, patient s date, date disability begins and ends and any required signatures. Ask our team about the suggested recovery time. [employer] is a secure way to get access to your labs online. In most instances, your test results are released to your [email or web address] account after your physician has reviewed them. This is generally within two weeks. Some routine test results are automatically delivered to your account, while others are released by your health care provider. In both cases, your provider will receive and review all y our test results, and he or she will contact you if further discussion about your result is needed. For non-emergent concerns, please send us a [employer] message but describe your issue fully. As an example, tell us how long you've had the symptom, what makes it better or worse, what you've done for it already) and one of our nurses or nurse practitioners will respond kenneth. For questions or concerns regarding [employer] access or technical dificulties, please call [phone] or toll free at . Results for orders placed or performed in visit on 09/29/22 LACTATE DEHYDROGENASE Result Value Ref Range LD Total 192 (H) 100 - 190 U/L COMPREHENSIVE METABOLIC PANEL Result Value Ref Range Sodium 139 135 - 145 mmol/L Potassium 3.9 3.5 - 5.0 mmol/L Chloride 103 98 - 108 mmol/L BUN 11 7 - 25 mg/dL Creatinine 1.01 0.50 - 1.20 mg/dL Glucose 126 (H) 70 - 99 mg/dL Bilirubin Total 0.5 <1.5 mg/dL Albumin 4.2 3.5 - 5.0 g/dL Total Protein 6.6 6.4 - 8.3 g/dL AST 39 10 - 39 U/L ALP 47 32 - 126 U/L Calcium 9.6 8.6 - 10.5 mg/dL CO2 29 21 - 31 mmol/L ALT 38 9 - 48 U/L Bun/Crea Ratio 11 Osmolality (Calculated) 292 278 - 305 mOsm/kg Anion Gap 11 7 - 17 mmol/L eGFR, CKD-EPI, Female 62 >=60 mL/min/1.73m2 CBC AND ELECTRONIC DIFF Result Value Ref Range WBC Count 6.19 3.99 - 11.19 K/uL RBC Count 4.09 3.91 - 5.04 M/uL Hemoglobin 13.2 11.4 - 15.2 g/dL Hematocrit 39.8 34.9 - 44.3 % Mean Cell Volume 97.3 79.6 - 97.7 fL Mean Cell Hgb 32.3 25.9 - 33.9 pg Mean Cell Hgb Conc 33.2 31.4 - 35.9 g/dL RBC Distribution 13.6 10.8 - 14.9 % Platelet Count 179 150 - 393 K/uL Mean Platelet Volume 10.4 8.5 - 12.2 fL DIFF STATUS Electronic Differential Segs + Bands Auto 43.5 % Immature Grans % 0.2 % Lymphocyte % Auto 45.1 % Monocyte % Auto 9.2 % Eosinophil % Auto 1.5 % Basophil % Auto 0.5 % Nucleated RBC 0.0 <=0.2 /100 WBC Segs + Bands,Absolute Auto 2.70 1.64 - 7.28 K/uL Immature Grans Absolute <0.04 <=0.08 K/uL Abs Lymph Auto 2.79 1.16 - 3.51 K/uL Abs Winston Auto 0.57 0.22 - 0.87 K/uL Abs Eos Auto 0.09 0.00 - 0.42 K/uL Abs Baso Auto <0.04 0.00 - 0.15 K/uL [facility] History of Present illness Narrative* Dariusz Rangel MD - 09/29/2022 9:10 AM EST History of Present Illness She presents for postoperative examination. Patient is status post anterior and posterior colporrhaphy performed on August 31, 2022. Patient is doing well. She states her urinary incontinence is much improved. She no longer has prolapse symptoms. She does have a small amount of discharge but no bleeding. Patient states she is quite pleased to date. Review of Systems Constitutional: Negative. Negative for activity change, appetite change, chills, diaphoresis, fatigue and fever. HENT: Negative. Negative for congestion and dental problem. Eyes: Negative for discharge and itching. Respiratory: Negative for apnea, cough, chest tightness, shortness of breath and wheezing. Cardiovascular: Negative for chest pain and leg swelling. Gastrointestinal: Negative for abdominal distention, abdominal pain and nausea. Endocrine: Negative for cold intolerance, heat intolerance, polydipsia and polyuria. Genitourinary: Negative for decreased urine volume, difficulty urinating, dysuria and genital sores. Musculoskeletal: Negative for arthralgias, back pain, gait problem and joint swelling. Skin: Negative for color change, pallor and rash. Allergic/Immunologic: Negative. Neurological: Negative for dizziness, tremors, seizures, weakness, light- headedness and headaches. Hematological: Negative for adenopathy. Does not bruise/bleed easily. Psychiatric/Behavioral: Negative for agitation, behavioral problems, hallucinations and suicidal ideas. The patient is not nervous/anxious. Vitals: Blood pressure 122/64, height 5' 5 (1.651 m), weight 207 lb (93.9 kg), not currently . Physical Exam Abdominal: General: Bowel sounds are normal. There is no distension. Palpations: Abdomen is soft. There is no mass. Tenderness: There is no abdominal tenderness. There is no guarding or rebound. Comments: Suprapubic incision sites healing well Genitourinary: Comments: External genitalia normal. Vagina pink, rugose, without discharge. Vaginal mucosa in the area of the midurethral healing well. Anterior posterior colporrhaphy incisions healing nicely. Skin: General: Skin is warm and dry. Neurological: Mental Status: She is alert and oriented to person, place, and time. Psychiatric: Judgment: Judgment normal. Neurological Exam Mental Status Alert. Oriented to person, place, and time. Assessment and Plan 1. Postoperative examination doing well status post anterior posterior colporrhaphy and mid urethral sling. Patient to follow up with 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 for next annual examination. She is to call if problems or concerns. Return if symptoms worsen or fail to improve, for Annual Exam, with 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 CNP. The documentation within this encounter was likely aided with [employer], and electronic insurance marketing specialist device. Please excuse any errors or omissions that may not have been recognized at the time of this encounter. [facility] History of Present illness Narrative* Eddi Randhawa MD - 09/28/2022 11:32 AM EST Patient was self-referred. IMPRESSION 62-year-old female with obstructive sleep apnea. Patient is interested in hypoglossal nerve stimulator. RECOMMENDATION/PLAN I discussed with patient that she needs a repeat sleep study to determine her candidacy. I will seethe patient back after her sleep study to discuss the next step in treatment. I did briefly discussed with her regarding the inclusion criteria for inspire hypoglossal nerve stimulator and the details of the surgery. Chief Complaint Inspire hypoglossal nerve stimulator consultation History of Present Illness Elena Galeano is a 62 year old female present for evaluation of obstructive sleep apnea. Patient stated that she was diagnosed with sleep apnea about 4 years ago. She has tried CPAP twice and cannot tolerate it. She wakes up in the middle night and has difficulty falling back to sleep. Her BMI is34.1. She reports history of tonsillectomy. She denies having surgery for breast implant. PAST MEDICAL HISTORY Diagnosis Date Anxiety Depression Hypertension Lymphoma (HCC) 10/2010 Right knee pain 06/12/2014 PAST SURGICAL HISTORY Procedure Laterality Date ANESTH OPEN/SURG ARTHRS TOTAL KNEE ARTHROPLASTY 05/19/2015 right TKA APPENDECTOMY ARTHROSCOPY KNEE SUBCHONDROPLAST 10/11/2014 right knee medial menisectomy & femoral tibial subchondroplasty COLONOSCOPY FLX DX W/COLLJ SPEC WHEN PFRMD 05/31/13 Colonoscopy EGD 2013 PAST SURGICAL HISTORY OF left ovary and fallopian tube removed for a benign cyst, done in her 20's PAST SURGICAL HISTORY OF Pilonidal cyst removed PAST SURGICAL HISTORY OF 01/2013 port a cath, left , 2011 with revision in 2012 TONSILLECTOMY PRIMARY/SECONDARY <AGE 10 Tonsillectomy FAMILY HISTORY Problem Relation Age of Onset None Mother None Father None Sister X 3 None Brother X 2 CURRENT OUTPATIENT MEDICATIONS Current Outpatient Medications on File Prior to Visit Medication Sig amoxicillin-clavulanic acid (AUGMENTIN) 875-125 mg per tablet Take 1 tablet by mouth. traZODone (DESYREL) 100 mg tablet Take [address]op[address] (PROTONIX) 40 mg tablet Take 40 mg by mouth. buPROPion XL (WELLBUTRIN XL) 300 mg 24 hr tablet Take 300 mg by mouth. escitalopram oxalate (LEXAPRO) 20 mg tablet Take 1 tablet by mouth once daily. carvedilol (COREG) 12.5 mg tablet Take 12.5 mg by mouth. Fenofibrate (LOFIBRA) 160 mg tablet Take 1 tablet by mouth once daily. REPATHA SURECLICK 140 mg/mL pen injector Inject 1 mL under the skin every 14 days. albuterol HFA (PROVENTIL HFA, VENTOLIN HFA) 90 mcg/actuation inhaler Inhale 2 Puffs as instructed every 6 hours as needed. aspirin, enteric coated (ASPIRIN, ENTERIC COATED) 81 mg EC tablet Take 81 mg by mouth. guaiFENesin (MUCINEX) 600 mg 12 hr tablet Take 1,200 mg by mouth. fenofibrate nanocrystallized (TRICOR) 145 mg tablet Take 1 tablet by mouth once daily. triamterene-hydrochlorothiazide 37.5-25 mg per tablet Take 1 tablet by mouth once daily. oxyCODONE-acetaminophen (PERCOCET) 5-325 mg tablet Take 1 tablet by mouth every 6 hours as needed. (Patient not taking: Reported on 09/28/2022) diclofenac, EC, (VOLTAREN) 75 mg EC tablet Take 1 tablet by mouth twice daily. (Patient not taking:Reported on 09/28/2022) amoxicillin (POLYMOX, AMOXIL) 500 mg capsule Please take 4 capsules by mouth 1 (one) hour prior to your dental appointment. (Patient not taking: Reported on 09/28/2022) meloxicam (MOBIC) 15 mg tablet Take 1 tablet by mouth once daily. (Patient not taking: Reported on 09/28/2022) rosuvastatin (CRESTOR) 40 mg tablet Take 1 tablet by mouth once daily. (Patient not taking: Reported on 09/28/2022) acebutolol (SECTRAL) 200 mg capsule Take 1 capsule by mouth twice daily. (Patient not taking: Reported on 09/28/2022) magnesium oxide (MAG-OX) 400 mg tablet Take 1 tablet by mouth once daily. (Patient not taking: Reported on 09/28/2022) omeprazole (PRILOSEC) 20 mg capsule Take 1 capsule by mouth twice daily. (Patient not taking: Reported on 09/28/2022) No current facility-administered medications on file prior to visit. ALLERGIES ALLERGIES Allergen Reactions Seasonal Allergies Other: See Comments sneezing and stuffy nose The remainder of the patient's history and review of systems is on the outpatient questionaire which was reviewed by me and placed in the outpatient chart. PHYSICAL EXAMINATION Appearance: General examination of the patient's external face, head and neck reveals no abnormalities. The patient is not retrognathic The patient's voice is strong and clear and they communicate easily. Ears: Exam of the ears revealed normal appearing external auditory canals, tympanic membranes, and middle ears. No signs of infection or fluid were seen. Nose: External nasal exam was normal. Throat: There were no lesions to visualization or palpation of the lips, cheeks, gums, floor of mouth, tongue, hard and soft palate, tonsillar pillars or posterior pharyngeal wall. The patient is a Cortes Tongue Position 2 and has surgically absent tonsils. Neck: Palpation of the neck revealed no adenopathy, salivary gland masses or asymmetry, or thyroid masses or enlargement. Eddi Randhawa MD [facility] NoteTherapy Diagnosis Assessed Sacroiliitis (720.2) (M46.1) Plan Goals: Goals set and discussed today. LTG's: 1) Improve Lumbar AROM from Villanueva 40% Ext and 35% b/l SB to Villanueva <= 25% in all planes of deficit inorder to facilitate improved gait and mobility. 4-6 weeks 09/20/2022, MET, Lumbar AROM is without significant limitation other then Extension villanueva 15% 2) Improve Core and L hip/knee strength from >= 4/5 to >= 4+/5 throughout in order to facilitate safe gait and mobility. 4-6 weeks 09/20/2022, MET, L hip/knee strength 4+/5 throughout. 3) Improve Modified Oswestry score by >= 5 points in order to improve QOL. 4-6 weeks 09/20/2022, MET, pt improved score from a 7 to a 4 at CA. 4) Improve LBP from 3/10 to <= 0-2 /10 with activity in order to improve QOL. 4- 6 weeks 09/20/2022, MET, Pain range 0-3/10 5) Pt will be able to walk longer distances, stand >= 30-40 min, lift/carry objects and perform standing activity in the home without significant limitation 4-6 weeks 09/20/2022, PARTIALLY MET, pt is able to walk longer distances but needs sitting breaks occasionally with standing activity. ST) Pt/caregiver will be I and consistent with HEP in order to maximize strength and flexibility. 2-3 weeks 09/20/2022, MET, pt is I with HEP and has handouts. Planned interventions include: aquatic therapy, cryotherapy, education/instruction, home program, manual therapy and therapeutic exercises . Focus on core strength and gentle ROM/flexibility ex's. Aquatic treatment for 5 weeks and 1 week land based. Frequency and duration: No further visits planned. Potential to achieve rehab goals is good 09/20/2022 PT DC Summary: The pt has made good progress in PT and has MET or PARTIALLY MET all of her PT goals. The pt has improved her core/LE strength and lumbar ROM/flexibility over the course of PT. The pt is I with her HEP and will continue with her ex's on her own at this time. DC PT at this time. Discharge patient: Achieved all and/or the most significant goal(s). Assessment The pt has made good progress in PT and has MET or PARTIALLY MET all of her PT goals. The pt has improved her core/LE strength and lumbar ROM/flexibility over the course of PT. The pt is I with her HEP and will continue with her ex's on her own at this time. DC PT at this time. Response to treatment: improved strength. Adult Risk Screening There are no spiritual/cultural practices/values/needs that are important to know Initial Fall Risk Screening: ELENA has fallen in the last 6 months. She has fallen due to tripped over object. Her fall resulted in the following injury: cut head needing kwasi. ELENA does not have a fear of falling. She does not need assistance with sitting, standing or walking. Does not need assistance walking in her home. She does not need assistance in an unfamiliar setting. The patient is not using an assistive device. Pain Scale: On a scale of 0 to 10, the patient rates the pain at 1. Please identify location of pain: Low back/sacral area and L hip (Pain range 0- 3/10 pain range). Pain Quality: aching and dull. The pain makes it hard for the patient to do these things: walking and house work. Living Will. Living Will: Living will on file. Did not bring. Healthcare POA: Health care proxy on file. Did not bring. Declaration of Mental Health Treatment: Declaration of mental health treatment on file. Did not bring. Depression/Suicide Screening: During the past 2 weeks, the patient has not felt down, depressed or hopeless. During the past 2 weeks, the patient has not felt little interest or pleasure in doing things. Insurance Insurance reviewed Visit number: 8 4/ [facility] Ins: 25 visits per year Dx: Sacroillitis M46.1 , S/P SI surgery 3 pins in SI joint on 06/19/2022 Evaluating PT: Wilian Schwartz Subjective Patient reports:. Pt reports that her low back/sacral area pain has improved a lot the last few weeks. Pt reports that she feels ready for DC and will continue with her ex's on her own at this time. Home program performing as directed: Yes. Precautions: Fall Risk: none PMH: hx of CA Non-hodgkins lymphoma (pt is currently CA free), R TKR, L shoulder scope 11/2021. Precautions: [facility] Back precautions (No lifting > 10#, no excessive bending or twisting) dueto s/p SI surgery on 06/19/2022 with 3 permanent pins for her SI joint. Treatment Time in clinic started at 10:45 am Time in clinic ended at 11:15 am Total time in clinic is 30 minutes. Total timed code time is 25 minutes. Therapeutic exercise (99674): timed minutes 25, units 2 . Bike 5' Standing: Standing hip abduction 10x2 Hip flexion 10x2 Hip extension 10x2 Heel raises 10x2 Mini Squats 10x2 Step ups forward 10x PT DC summary completed. Following ex's X today due to time. Anti rotations orange TB 10x each (pt. had mild discomfort 2/10 LBP) Supine: TrA x10x5' holds Bridges 2x12 bug progression: leg marches (more content not included)... [id number] History of Present illness Narrative* Fernie M Reggie, DO - 08/20/2022 1:30 PM EDT History of Present Illness HISTORY OF PRESENT ILLNESS: 62 y.o. female presents with complaints of: Encounter Diagnoses Name Primary? 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 disease, without long-term current use of insulin Yes Hyperlipidemia LDL goal <70 Hypertriglyceridemia Idiopathic chronic gout without tophus, unspecified site B12 deficiency Fatty liver Chronic gastritis without bleeding, unspecified gastritis type Folate deficiency Gastroesophageal reflux disease without esophagitis Duodenal diverticulum Esophageal stenosis Esophagitis, Clyo grade A Anemia, unspecified type Hepatomegaly Unspecified amblyopia, right eye Regular astigmatism of left eye Vitamin D deficiency Paroxysmal atrial fibrillation Essential hypertension Internal and external hemorrhoids without complication PVC's (premature ventricular contractions) Chronic obstructive pulmonary disease, unspecified COPD type Chronic sinusitis, unspecified location Moderate persistent asthma without complication Non-seasonal allergic rhinitis, unspecified trigger PERCY on CPAP-BiPAP Set at 14/4 CM/H2O Pulmonary emphysema, unspecified emphysema type Spondylosis of cervical region without myelopathy or radiculopathy Spinal stenosis of lumbar region without neurogenic claudication Spondylosis of lumbar region without myelopathy or radiculopathy Allergic conjunctivitis of both eyes Chronic midline low back pain without sciatica 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 Combined forms of age-related cataract, bilateral Blepharitis of upper eyelids of both eyes, unspecified type Hiatal hernia HNP (herniated nucleus pulposus), lumbar-Multi level Other idiopathic scoliosis, lumbar region Primary osteoarthritis of both hips-Mild Primary osteoarthritis of both knees CKD (chronic kidney disease) stage 2, GFR 60-89 ml/min Mixed stress and urge incontinence Renal cyst, right [id number] on 09-30-2020 Seborrheic keratosis, inflamed-Left thigh-S/P Excision CLL (chronic lymphocytic leukemia) Macrocytosis Anxiety and depression Pseudophakia Urinary frequency Osteopenia determined by x-ray Bradycardia Obesity (BMI 30.0-34.9) Myopia of right eye Low HDL (under 40) Irregular astigmatism of right eye Insomnia, unspecified type History of ETOH abuse History of cataract extraction, unspecified laterality History of anemia S/P unilateral salpingo-oophorectomy S/P total knee arthroplasty, right Presbyopia Elevated LFTs Fatty food intolerance Fatigue, unspecified type Former smoker-Quit 2011 Bilateral dry eyes ASCUS of cervix with negative high risk HPV Family history of Alzheimer's disease Type 2 DM, CKD-2, Hyperlipidemia, Anemia dn CLL. Not seen Dr. Livia stiles or new Sleep specialist. Non Smoker, former. +Fam Hx Alzheimers in Father who is recently . Needs refills. Recent Glucose 134, GFR 75, A1C 5.9, LDL 56, TG 194, Ferritin 9, TIBC 574. All other labs WNL. +Frequency with incontinence. Having cystouethropexy on 08-31-[address] Rangel. No blurred vision.No C.P., SOB, Edema, Palpitations, Dizziness, Fatigue, GERD, Melena, Hematochezia, Dysuria. + Frequency. All others negative on ROS. Review of Systems Constitutional: Negative for fatigue and unexpected weight change. Eyes: Negative for visual disturbance. Respiratory: Negative for shortness of breath. Cardiovascular: Negative for chest pain, palpitations and leg swelling. Gastrointestinal: Negative for abdominal pain and blood in stool. No GERD Genitourinary: Positive for difficulty urinating (incontinence) and frequency. Negative for dysuria. Musculoskeletal: Negative for arthralgias. Neurological: Negative for dizziness, weakness and numbness. Psychiatric/Behavioral: Negative for dysphoric mood and sleep disturbance. The patient is not nervous/anxious. All other systems reviewed and are negative. Vitals: Blood pressure 129/69, pulse 56, temperature 97.7 F (36.5 C), resp. rate 16, height 1.651 m(5' 5), weight 97.4 kg (214 lb 12.8 oz), SpO2 98 %, not currently . Physical Exam Vitals and nursing note reviewed. Constitutional: General: She is not in acute distress. Appearance: Normal appearance. She is obese. She is not ill-appearing. HENT: Head: Normocephalic and atraumatic. Nose: No congestion. Eyes: General: No scleral icterus. Right eye: No discharge. Left eye: No discharge. Extraocular Movements: Extraocular movements intact. Conjunctiva/sclera: Conjunctivae normal. Pupils: Pupils are equal, round, and reactive to light. Pulmonary: Effort: Pulmonary effort is normal. Breath sounds: No wheezing or rhonchi. Abdominal: General: Abdomen is flat. Bowel sounds are normal. There is no distension. Tenderness: There is no abdominal tenderness. Musculoskeletal: General: Normal range of motion. Cervical back: Normal range of motion and neck supple. No rigidity. No muscular tenderness. Right lower leg: No edema. Left lower leg: No edema. Skin: Coloration: Skin is not jaundiced. Findings: No bruising, erythema or rash. Neurological: General: No focal deficit present. Mental Status: She is alert and oriented to person, place, and time. Mental status is at baseline. Psychiatric: Mood and Affect: Mood normal. Behavior: Behavior normal. Thought Content: Thought content normal. Judgment: Judgment normal. Neurological Exam Mental Status Alert. Oriented to person, place, and time. Cranial Nerves CN III, IV, : Extraocular movements intact bilaterally. Pupils equal round and reactive to light bilaterally. Assessment and Plan Refills given all meds requested. Flu and COVID-19 vaccines declined. Risks discussed. Re-schedule with Oncology Dr. Naty Bhakta son at [facility] and get Flu vaccine with her. Re-schedule with DR. Chaudhry at [facility] son, as was due back in with her. Schedule with Sleep Specialist at in [place] son to discuss oral appliance as inconsistently uses BiPAP. Alaina 08-31-[address] Rangel for bladder surgery. Alaina 09-02-[address] Blackwood. Alaina with DR. Sigala. Check fasting, well hydrated CBC, CMP, A1C, Lipid, TSH, UA, Vit D, Fe, TIBC, Ferritin, B12 and Folate on approx 11-02-22 at [facility] lab. Alaina 11-19-22, sooner prn. Alaina 02-03-23 with 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 for PAP. Alaina 3-D Mammogram and DEXA in . Refill Myrbetriq either with Dr. Rangel or will re-refer to Jonathan Cm NP. Will give Pneumovax-23 in . Alaina 05-03-[address] Calderon. Alaina PFT in . Alaina Colon in. Hold alaina with Dr. León Hernandez in [place]. Total time spent 31 minutes, excludingtests and procedures. Diet and lifestyle counseling was given, and care coordinated. OARRS report was received and assessed, and is consistent with the medications prescribed.Thank you for choosing Dr. Fernie Paredes s Office at [facility] for your healthcare needs.The patients' entire past medical, surgical, family, social history, allergies, medications, recent labs, recent imaging and [employer] commerce consultant letters were reviewed and updated. ASSESSMENT & PLAN: Encounter Diagnoses Name Primary? 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 disease, without long-term current use of insulin Yes Hyperlipidemia LDL goal <70 Hypertriglyceridemia Idiopathic chronic gout without tophus, unspecified site B12 deficiency Fatty liver Chronic gastritis without bleeding, unspecified gastritis type Folate deficiency Gastroesophageal reflux disease without esophagitis Duodenal diverticulum Esophageal stenosis Esophagitis, Clyo grade A Anemia, unspecified type Hepatomegaly Unspecified amblyopia, right eye Regular astigmatism of left eye Vitamin D deficiency Paroxysmal atrial fibrillation Essential hypertension Internal and external hemorrhoids without complication PVC's (premature ventricular contractions) Chronic obstructive pulmonary disease, unspecified COPD type Chronic sinusitis, unspecified location Moderate persistent asthma without complication Non-seasonal allergic rhinitis, unspecified trigger PERCY on CPAP-BiPAP Set at 14/4 CM/H2O Pulmonary emphysema, unspecified emphysema type Spondylosis of cervical region without myelopathy or radiculopathy Spinal stenosis of lumbar region without neurogenic claudication Spondylosis of lumbar region without myelopathy or radiculopathy Allergic conjunctivitis of both eyes Chronic midline low back pain without sciatica 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 Combined forms of age-related cataract, bilateral Blepharitis of upper eyelids of both eyes, unspecified type Hiatal hernia HNP (herniated nucleus pulposus), lumbar-Multi level Other idiopathic scoliosis, lumbar region Primary osteoarthritis of both hips-Mild Primary osteoarthritis of both knees CKD (chronic kidney disease) stage 2, GFR 60-89 ml/min Mixed stress and urge incontinence Renal cyst, right [id number] on 09-30-2020 Seborrheic keratosis, inflamed-Left thigh-S/P Excision CLL (chronic lymphocytic leukemia) Macrocytosis Anxiety and depression Pseudophakia Urinary frequency Osteopenia determined by x-ray Bradycardia Obesity (BMI 30.0-34.9) Myopia of right eye Low HDL (under 40) Irregular astigmatism of right eye Insomnia, unspecified type History of ETOH abuse History of cataract extraction, unspecified laterality History of anemia S/P unilateral salpingo-oophorectomy S/P total knee arthroplasty, right Presbyopia Elevated LFTs Fatty food intolerance Fatigue, unspecified type Former smoker-Quit 2011 Bilateral dry eyes ASCUS of cervix with negative high risk HPV Family history of Alzheimer's disease Orders Placed This Encounter Procedures CBC, EDIF, PLATELET Copy to Dr. Wm. Calderon and DR. Naty Bhakta, Hematology/Oncology at [facility] Standing Status: Future Standing Expiration Date: 08/20/2023 COMPREHENSIVE METABOLIC PANEL Standing Status: Future Standing Expiration Date: 08/20/2023 HEMOGLOBIN A1C Standing Status: Future Standing Expiration Date: 08/20/2023 LIPID PANEL W CALCULATED LDL Standing Status: Future Standing Expiration Date: 08/20/2023 TSH Standing Status: Future Standing Expiration Date: 08/20/2023 URIC ACID Standing Status: Future Standing Expiration Date: 08/20/2023 VITAMIN D (25-HYDROXY,TOTAL) Standing Status: Future Standing Expiration Date: 08/20/2023 FERRITIN Standing Status: Future Standing Expiration Date: 08/20/2023 IRON/IRON BINDING/TRANSFERRIN Standing Status: Future Standing Expiration Date: 08/20/2023 FOLATE, SERUM Standing Status: Future Standing Expiration Date: 08/20/2023 VITAMIN B12 Standing Status: Future Standing Expiration Date: 08/20/2023 Medications Discontinued During This Encounter Medication Reason phenazopyridine 200 MG tablet losartan (Cozaar) 50 MG tablet hydroCODone-acetaminophen 5-325 MG tablet traZODone 100 MG tablet Reorder pantoprazole (Protonix) [address] tablet DR Reorder triamterene-hydrochlorothiazide (Dyazide) 37.5-25 MG per capsule Reorder folic acid 1 MG tablet Reorder escitalopram 20 MG tablet Reorder cyanocobalamin 1000 MCG tablet Reorder buPROPion (Wellbutrin XL) 300 MG tablet XL Reorder budesonide (Pulmicort Flexhaler) 180 MCG/ACT inhaler Reorder Current Outpatient Medications Medication Sig Dispense Refill budesonide (Pulmicort Flexhaler) 180 MCG/ACT inhaler Inhale 1 puff 2 times daily. Rinse mouth with water after each dose 3 Each 0 buPROPion (Wellbutrin XL) 300 MG tablet XL Take 1 tablet by mouth every morning before breakfast. 90 tablet 0 cyanocobalamin 1000 MCG tablet Take 1 tablet by mouth daily. Chew 1 tab q daily 90 tablet 0 escitalopram 20 MG tablet Take 1 tablet by mouth daily. 90 tablet 0 folic acid 1 MG tablet Take 1 tablet by mouth daily. 90 tablet 0 pantoprazole (Protonix) [address] tablet DR Take 1 tablet by mouth 2 times daily (take before meals). 180 tablet 0 traZODone 100 MG tablet Take 1 tablet by mouth at bedtime. 90 tablet 0 triamterene-hydrochlorothiazide (Dyazide) 37.5-25 MG per capsule Take 1 capsule by mouth daily. Cancel previous refills 90 capsule 0 albuterol (VENTOLIN HFA) 108 (90 Base) MCG/ACT Aero Soln inhaler Inhale 2 puffs every 6 hours as needed for Wheezing. 1 Inhaler 0 Alirocumab 75 MG/ML Solution Auto-injector Inject 75 mg under the skin every [address] Calderon aspirin EC [address] Take 81 mg by mouth daily with breakfast. OTC carveDILOL (Coreg) 12.5 MG tablet Take 1 tablet by mouth 2 times daily with meals. 180 tablet 3 cetirizine 10 MG tablet Take 1 tablet by mouth daily. OTC Clindamycin Phos-Benzoyl Perox 1.2-3.75 % Gel Apply 1 Application topically daily. Given by Dermatology Dr. Dejesus fenofibrate 160 MG tablet Take 1 tablet by mouth daily. 90 tablet 0 Mirabegron ER (Myrbetriq) 50 MG tablet Take 1 tablet by mouth daily. 30 tablet 11 Misc. Devices Misc by Unknown route. Auto BIPAP max IPAP 14 min EPAP 4 PS 5 set up 02/06/21 DME MSC (Patient not taking: No sig reported) NON-FORMULARY 3 caps q daily of Balance of Nature No current facility-administered medications for this visit. Counseling given: No Follow up appointment(s) have been discussed with the patient. The patient is given an After Visit Summary sheet that lists all of their medications with directions, their allergies, orders placed during this encounter, immunization dates, and follow- up instructions. Fernie Paredes DO [address] [place] [id number] This note is electronically signed in the electronic medical record. [facility] Instructions* Patient Instructions* Fernie Paredes DO - 08/20/2022 1:30 PM EDT Do fasting, well hydrated labs on approx 11-02-22 [facility] History of Present illness Narrative* Radha Saleh APRN-JULISSA - 08/09/2022 11:20 AM EDT History of Present Illness Patient is here today for pre op appt. Patient is scheduled to have anterior repair, cystoscopy with hydrodilation, and a miduretheral sling on 08/31/22. Patient had PAT appt scheduled for this afternoon. Patient would like to proceed with surgery as scheduled. Denies F/C/N/V/SOB/CP at this time. I have reviewed and updated the following portions of this chart as required. Allergies Allergen Reactions Nsaids Has CKD-2 Past Medical History: Diagnosis Date A-fib Anemia Arrhythmia ASCUS of cervix with negative high risk HPV Asthma B12 deficiency CLL (chronic lymphocytic leukemia) 2012 [id number] on 09-30-2020 Depression Diffuse non-Hodgkin's lymphoma chemotherapy Folate deficiency GERD (gastroesophageal reflux disease) Hiatal hernia Hyperglycemia Hyperlipidemia Hypertension Non-Hodgkin lymphoma 2011 PERCY (obstructive sleep apnea) PVC's (premature ventricular contractions) Past Surgical History: Procedure Laterality Date ARTHRODESIS SACROILIAC JOINT MINIMALLY INVASIVE Left 06/17/2022 Laterality: Left; Surgeon: Isreal Sigala MD; Location: [facility] OR GUIDANCE FLUOROSCOPIC NEEDLE OR CATHETER PLACEMENT FOR SPINE INJECTION ADD-ON PX Left 06/17/2022 Laterality: Left; Surgeon: Isreal Sigala MD; Location: [facility] OR EGD W/ DILATION BALLOON N/A 12/01/2021 Laterality: N/A; Surgeon: Indra Parrish DO; Location: [facility] SHOULDER ARTHROSCOPY Left 06/18/2021 REMOVAL CENTRAL VENOUS ACCESS DEVICE TUNNELED W/ PORT PUMP Left 09/13/2019 Laterality: Left; Surgeon: Eduardo Muñoz MD; Location: [facility] INTERVENTIONAL RADIOLOGY (VIR) EGD W/ DILATION BALLOON N/A 06/30/2018 Laterality: N/A; Surgeon: Indra Parrish DO; Location: [facility] EGD DIAGNOSTIC N/A 04/07/2018 Laterality: N/A; Surgeon: Wilner Leigh MD; Location: [facility] COLONOSCOPY DIAGNOSTIC N/A 04/07/2018 Laterality: N/A; Surgeon: Wilner Leigh MD; Location: [facility] ARTHROPLASTY KNEE TOTAL Right 04/2015 INSERTION PICC W/ PORT PUMP 2015 power port COLONOSCOPY DIAGNOSTIC 2006 SALPINGO-OOPHORECTOMY OPEN N/A 1983 APPENDECTOMY OPEN 1983 TONSILLECTOMY ADENOIDECTOMY 1968 EGD DIAGNOSTIC 10 months ago Family History Problem Relation Age of Onset Breast Cancer Maternal Aunt Ovarian Cancer Paternal Aunt Cancer Paternal Aunt brain Hypertension Mother Lipid Disorder Mother Depression Mother Dementia Father Lung Cancer Maternal Grandfather Cancer- Other Maternal Uncle melanoma Hypertension Son Lipid Disorder Daughter No known problems Daughter Autism Grandson Social History Socioeconomic History Marital status: Spouse name: Not on file Number of children: Not on file Years of education: Not on file Highest education level: Not on file Occupational History Not on file Tobacco Use Smoking status: Former Packs/day: 0.75 Years: 35.00 Pack years: 26.25 Types: Cigarettes Quit date: 04/23/2013 Years since quittin.3 Smokeless tobacco: Never Vaping Use Vaping Use: Never used Substance and Sexual Activity Alcohol use: Yes Alcohol/week: 2.0 standard drinks Types: 2 Cans of beer per week Comment: Hx ETOH abuse,and now 2 beers weekly Drug use: Never Sexual activity: Yes control/protection: Menopause Other Topics Concern Service Not Asked Blood Transfusions Not Asked Caffeine Concern Not Asked Occupational Exposure Not Asked Hobby Hazards Not Asked Sleep Concern Not Asked Stress Concern Not Asked Weight Concern Not Asked Special Diet Not Asked Back Care Not Asked Exercise Not Asked Bike Helmet Not Asked Seat Belt Not Asked Domestic Violence Not Asked Social History Narrative Not on file Social Determinants of Health Financial Resource Strain: Not on file Food Insecurity: Not on file Transportation Needs: Not on file Physical Activity: Not on file Stress: Not on file Social Connections: Not on file Intimate Partner Violence: Not on file Housing Stability: Not on file OB History Para Term AB Living 3 3 0 3 0 3 SAB IAB Ectopic Molar Multiple Live Births 0 0 0 0 0 3 # Outcome Date GA Lbr Ari/2nd Weight Sex Delivery Anes PTL Lv 3 10/01/79 36w0d 9 lb 2 oz (4.139 kg) F Vag-Spont RAIN 2 09/24/77 36w0d 9 lb 5 oz (4.224 kg) F Vag-Spont N RAIN 1 05/11/75 30w0d 7 lb 5 oz (3.317 kg) M Vag-Spont Y RAIN Review of Systems Constitutional: Negative for chills, diaphoresis, fatigue and fever. Eyes: Negative for discharge and redness. Respiratory: Negative for cough and shortness of breath. Cardiovascular: Negative for chest pain and leg swelling. Gastrointestinal: Negative for abdominal pain, constipation, diarrhea, nausea and vomiting. Endocrine: Negative for cold intolerance and heat intolerance. Genitourinary: Positive for frequency, pelvic pain and urgency. Negative for menstrual problem, vaginal bleeding, vaginal discharge and vaginal pain. Musculoskeletal: Negative for neck stiffness. Skin: Negative for color change and pallor. Allergic/Immunologic: Negative for environmental allergies and food allergies. Neurological: Negative for dizziness and light-headedness. Hematological: Does not bruise/bleed easily. Psychiatric/Behavioral: Negative for behavioral problems and confusion. Vitals: Blood pressure 156/88, height 5' 5 (1.651 m), weight 219 lb (99.3 kg), not currently . Physical Exam Vitals and nursing note reviewed. Constitutional: General: She is not in acute distress. Appearance: Normal appearance. She is well-developed and well-nourished. She is obese. She is not ill-appearing. HENT: Head: Normocephalic and atraumatic. Eyes: General: Right eye: No discharge. Left eye: No discharge. Neck: Thyroid: No thyromegaly. Vascular: No JVD. Cardiovascular: Rate and Rhythm: Normal rate and regular rhythm. Heart sounds: Normal heart sounds. Pulmonary: Effort: Pulmonary effort is normal. Breath sounds: Normal breath sounds. Abdominal: General: Bowel sounds are normal. There is no distension. Palpations: Abdomen is soft. There is no mass. Tenderness: There is no abdominal tenderness. Musculoskeletal: General: No edema. Cervical back: Normal range of motion. Lymphadenopathy: Cervical: No cervical adenopathy. Skin: General: Skin is warm and dry. Neurological: Mental Status: She is alert and oriented to person, place, and time. Psychiatric: Mood and Affect: Mood and affect and mood normal. Speech: Speech normal. Behavior: Behavior normal. Behavior is cooperative. Judgment: Judgment normal. Neurological Exam Mental Status Alert. Oriented to person, place, and time. Speech is normal. Assessment and Plan Problem List Items Addressed This Visit None Visit Diagnoses Mixed stress and urge urinary incontinence - Primary Midline cystocele Urethral hypermobility Pelvic pain History of atrial fibrillation No abnormalities noted on physical exam today. BP stable. PAT to be completed today. Patient would like to proceed with surgery as scheduled. Patient advised to contact the office if she develops anyfever, illnesses, and/or new diagnoses prior to the scheduled surgery. Patient voiced understandingof all instructions. Return for post op. documented in this [facility]09-15-[facility]22 History of Present illness Narrative* Dariusz Rangel MD - 07/08/2022 1:40 PM EDT History of Present Illness Sarah Jackson is a 62 yo female with hx of 3 previous vaginal deliveries who was seen on 06/07/22 for urinary incontinence. Patient has had issues over the last 1.5 years. Patient leaks urine before being able to get to toilet. Leaks with cough, laugh, and sneeze. Voids 2 x per night. Will leak en route to bathroom at night. Sound and feel of water will give patient urge to go to bathroom. Uses pad or liner only when traveling away from home. Drinks 1 cup of caffeinated coffee each morning. Patient has previously seen per urologist as well as PCP and recommended f/u with general utility worker. Denies pressure or prolapse symptoms. Patient has been on anticholinergic per Dr. Garner. Currently on myrbetriq daily. Patient had CMG performed on 06/01/22 and DI as well as ALICIA was noted.. Patient has a pain like feeling that make her think that every time she voids she is getting a bladder infection. Urine culture was negative from her last visit. Patient continues to describe stress incontinence. Prior exam c/w first degree cystocoele as well as hypermobile urethra, but ALICIA could not be confirmed by exam, but was confirmed by CMG. Findings discussed with patient. Patient wears incontinence briefs and has grown increasingly frustrated. Leaks even with standing. Patient with hx of Afib, and recently was cleared by cardiology for arthrodesis of the sacroiliac joint. The following portions of the patients of the chart have reviewed and updated as required. Patient Active Problem List Diagnosis CLL (chronic lymphocytic leukemia) PVC's (premature ventricular contractions) Essential hypertension Gastroesophageal reflux disease without esophagitis Chronic sinusitis Non-seasonal allergic rhinitis Former smoker-Quit 2011 Elevated LFTs Moderate persistent asthma without complication Hypertriglyceridemia Hiatal hernia S/P unilateral salpingo-oophorectomy History of anemia PERCY on CPAP-BiPAP Set at 14/4 CM/H2O S/P total knee arthroplasty, right Primary osteoarthritis of both knees Insomnia Vitamin D deficiency Fatty liver Internal and external hemorrhoids without complication Renal cyst, right Duodenal diverticulum Paroxysmal atrial fibrillation Well adult exam Hepatomegaly Chronic obstructive pulmonary disease Esophagitis, Clyo grade A Obesity (BMI 30.0-34.9) Idiopathic chronic gout without tophus Hyperlipidemia LDL goal <70 Fatty food intolerance Seborrheic keratosis, inflamed-Left thigh-S/P Excision Low HDL (under 40) Encounter for screening mammogram for breast cancer Anxiety and depression Allergic conjunctivitis of both eyes Combined forms of age-related cataract, bilateral Bilateral dry eyes Irregular astigmatism of right eye Regular astigmatism of left eye Pinguecula of both eyes Blepharitis of upper eyelids of both eyes [id number] on 09-30-2020 Fatigue Urinary frequency ASCUS of cervix with negative high risk HPV Macrocytosis Folate deficiency Unspecified amblyopia, right eye Hypermetropia of left eye Myopia of right eye Presbyopia History of cataract extraction Pseudophakia Spondylosis of lumbar region without myelopathy or radiculopathy Other idiopathic scoliosis, lumbar region Chronic midline low back pain without sciatica History of ETOH abuse Esophageal stenosis Chronic gastritis without bleeding CKD (chronic kidney disease) stage 2, GFR 60-89 ml/min Mixed stress and urge incontinence Spinal stenosis of lumbar region without neurogenic claudication Primary osteoarthritis of both hips-Mild Osteopenia determined by x-ray B12 deficiency Anemia HNP (herniated nucleus pulposus), lumbar-Multi level 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 disease, without long-term current use of insulin Spondylosis of cervical region without myelopathy or radiculopathy Pulmonary emphysema Current Outpatient Medications Medication Sig Dispense Refill albuterol (VENTOLIN HFA) 108 (90 Base) MCG/ACT Aero Soln inhaler Inhale 2 puffs every 6 hours as needed for Wheezing. 1 Inhaler 0 Alirocumab 75 MG/ML Solution Auto-injector Inject 75 mg under the skin every [address] Calderon aspirin EC [address] Take 81 mg by mouth daily with breakfast. OTC budesonide (Pulmicort Flexhaler) 180 MCG/ACT inhaler Inhale 1 puff 2 times daily. Rinse mouth with water after each dose 3 Each 0 buPROPion (Wellbutrin XL) 300 MG tablet XL Take 1 tablet by mouth every morning before breakfast. 90 tablet 0 carveDILOL (Coreg) 12.5 MG tablet Take 1 tablet by mouth 2 times daily with meals. 180 tablet 3 cetirizine 10 MG tablet Take 1 tablet by mouth daily. OTC Clindamycin Phos-Benzoyl Perox 1.2-3.75 % Gel Apply 1 Application topically daily. Given by Dermatology Dr. Dejesus cyanocobalamin 1000 MCG tablet Take 1 tablet by mouth daily. Chew 1 tab q daily 90 tablet 0 escitalopram 20 MG tablet Take 1 tablet by mouth daily. 90 tablet 0 fenofibrate 160 MG tablet Take 1 tablet by mouth daily. 90 tablet 0 losartan (Cozaar) 50 MG tablet Take 1 tablet by mouth daily. 90 tablet 3 Mirabegron ER (Myrbetriq) 50 MG tablet Take 1 tablet by mouth daily. 30 tablet 11 NON-FORMULARY 3 caps q daily of Balance of Nature pantoprazole (Protonix) [address] tablet DR Take 1 tablet by mouth 2 times daily (take before meals). 180 tablet 0 Repatha SureClick 140 MG/ML Solution Auto-injector injection traZODone 100 MG tablet Take 1 tablet by mouth at bedtime. 90 tablet 0 triamterene-hydrochlorothiazide (Dyazide) 37.5-25 MG per capsule Take 1 capsule by mouth daily. Cancel previous refills 90 capsule 0 folic acid 1 MG tablet Take 1 tablet by mouth daily. (Patient not taking: Reported on 07/08/2022) 90tablet 0 hydroCODone-acetaminophen 5-325 MG tablet Take 1 tablet by mouth every 6 hours as needed for Moderate Pain for up to 7 days. 28 tablet 0 Misc. Devices Misc by Unknown route. Auto BIPAP max IPAP 14 min EPAP 4 PS 5 set up 02/06/21 DME [facility] (Patient not taking: Reported on 06/07/2022) phenazopyridine 200 MG tablet Take 1 tablet by mouth 3 times daily for 4 days. 12 tablet 0 No current facility-administered medications for this visit. Past Medical History: Diagnosis Date A-fib Anemia Arrhythmia ASCUS of cervix with negative high risk HPV Asthma B12 deficiency CLL (chronic lymphocytic leukemia) 2011 [id number] on 09-30-2020 Depression Diffuse non-Hodgkin's lymphoma chemotherapy Folate deficiency GERD (gastroesophageal reflux disease) Hiatal hernia Hyperglycemia Hyperlipidemia Hypertension Non-Hodgkin lymphoma 2011 PERCY (obstructive sleep apnea) PVC's (premature ventricular contractions) Allergies Allergen Reactions Nsaids Has CKD-2 Past Surgical History: Procedure Laterality Date ARTHRODESIS SACROILIAC JOINT MINIMALLY INVASIVE Left 06/17/2022 Laterality: Left; Surgeon: Isreal Sigala MD; Location: [facility] OR GUIDANCE FLUOROSCOPIC NEEDLE OR CATHETER PLACEMENT FOR SPINE INJECTION ADD-ON PX Left 06/17/2022 Laterality: Left; Surgeon: Isreal Sigala MD; Location: [facility] OR EGD W/ DILATION BALLOON N/A 12/01/2021 Laterality: N/A; Surgeon: Indra Parrish DO; Location: [facility] SHOULDER ARTHROSCOPY Left 06/18/2021 REMOVAL CENTRAL VENOUS ACCESS DEVICE TUNNELED W/ PORT PUMP Left 09/13/2019 Laterality: Left; Surgeon: Eduardo Muñoz MD; Location: [facility] INTERVENTIONAL RADIOLOGY (VIR) EGD W/ DILATION BALLOON N/A 06/30/2018 Laterality: N/A; Surgeon: Indra Parrish DO; Location: [facility] EGD DIAGNOSTIC N/A 04/07/2018 Laterality: N/A; Surgeon: Wilner Leigh MD; Location: [facility] COLONOSCOPY DIAGNOSTIC N/A 04/07/2018 Laterality: N/A; Surgeon: Wilner Leigh MD; Location: [facility] ARTHROPLASTY KNEE TOTAL Right 04/2015 INSERTION PICC W/ PORT PUMP 2014 power port COLONOSCOPY DIAGNOSTIC 2006 SALPINGO-OOPHORECTOMY OPEN N/A 1983 APPENDECTOMY OPEN 1983 TONSILLECTOMY ADENOIDECTOMY 1967 EGD DIAGNOSTIC 10 months ago OB History 3 Para 3 Term 0 3 AB 0 Living 3 SAB 0 IAB 0 Ectopic 0 Molar 0 Multiple 0 Live Births 3 Social History Socioeconomic History Marital status: Spouse name: Not on file Number of children: Not on file Years of education: Not on file Highest education level: Not on file Occupational History Not on file Tobacco Use Smoking status: Former Smoker Packs/day: 0.75 Years: 35.00 Pack years: 26.25 Types: Cigarettes Quit date: 04/23/2013 Years since quittin.2 Smokeless tobacco: Never Used Vaping Use Vaping Use: Never used Substance and Sexual Activity Alcohol use: Yes Alcohol/week: 2.0 standard drinks Types: 2 Cans of beer per week Comment: Hx ETOH abuse,and now 2 beers weekly Drug use: Never Sexual activity: Not Currently control/protection: Menopause Other Topics Concern Service Not Asked Blood Transfusions Not Asked Caffeine Concern Not Asked Occupational Exposure Not Asked Hobby Hazards Not Asked Sleep Concern Not Asked Stress Concern Not Asked Weight Concern Not Asked Special Diet Not Asked Back Care Not Asked Exercise Not Asked Bike Helmet Not Asked Seat Belt Not Asked Domestic Violence Not Asked Social History Narrative Not on file Social Determinants of Health Financial Resource Strain: Not on file Food Insecurity: Not on file Transportation Needs: Not on file Physical Activity: Not on file Stress: Not on file Social Connections: Not on file Intimate Partner Violence: Not on file Housing Stability: Not on file Family History Problem Relation Age of Onset Breast Cancer Maternal Aunt Ovarian Cancer Paternal Aunt Cancer Paternal Aunt brain Hypertension Mother Lipid Disorder Mother Depression Mother Dementia Father Lung Cancer Maternal Grandfather Cancer- Other Maternal Uncle melanoma Hypertension Son Lipid Disorder Daughter No known problems Daughter Autism Grandson Review of Systems Constitutional: Negative. Negative for activity change, appetite change, chills, diaphoresis, fatigue and fever. HENT: Negative. Negative for congestion and dental problem. Eyes: Negative for discharge and itching. Respiratory: Negative for apnea, cough, chest tightness, shortness of breath and wheezing. Cardiovascular: Negative for chest pain and leg swelling. Gastrointestinal: Negative for abdominal distention, abdominal pain and nausea. Endocrine: Negative for cold intolerance, heat intolerance, polydipsia and polyuria. Genitourinary: Negative for decreased urine volume, difficulty urinating, dysuria and genital sores. Musculoskeletal: Negative for arthralgias, back pain, gait problem and joint swelling. Skin: Negative for color change, pallor and rash. Allergic/Immunologic: Negative. Neurological: Negative for dizziness, tremors, seizures, weakness, light- headedness and headaches. Hematological: Negative for adenopathy. Does not bruise/bleed easily. Psychiatric/Behavioral: Negative for agitation, behavioral problems, hallucinations and suicidal ideas. The patient is not nervous/anxious. Vitals: Blood pressure 124/58, height 5' 5 (1.651 m), weight 215 lb (97.5 kg), not currently . Physical Exam HENT: Head: Normocephalic and atraumatic. Eyes: Pupils: Pupils are equal, round, and reactive to light. Cardiovascular: Rate and Rhythm: Normal rate and regular rhythm. Heart sounds: No murmur heard. No friction rub. No gallop. Pulmonary: Effort: Pulmonary effort is normal. Breath sounds: Normal breath sounds. Abdominal: General: Bowel sounds are normal. There is no distension. Palpations: Abdomen is soft. Tenderness: There is no abdominal tenderness. Genitourinary: Comments: Pelvic exam deferred, see prior note. First degree cystocole and hypermobile urethra previously documented on exam. Musculoskeletal: General: Normal range of motion. Skin: General: Skin is warm and dry. Neurological: Mental Status: She is alert and oriented to person, place, and time. Neurological Exam Mental Status Alert. Oriented to person, place, and time. Cranial Nerves CN III, IV, : Pupils equal round and reactive to light bilaterally. Assessment and Plan 1. Mixed stress and urge urinary incontinence Believe proceeding with midurethral sling and anterior repair and cysto with hydrodilation of the bladder is reasonable given her stress incontinence and bladder symptoms to r/o I.C. R and B to theseprocedures discussed at length, and also discussed the R and B and issues regarding synthetic mesh including pain, erosion, bleeding, etc. Patient agrees, and desires to proceed. 2. Midline cystocele See above 3. Urethral hypermobility See above. 4. Pelvic Pain: See above 5. Hx of atrial fibrillation: Patient has recently been cleared for non-general utility worker surgery and do not believe repeat clearance warranted. Patient with no new symptoms. Face to face time with this patient was approximately 30 minutes with greater than 50% of the time spent in consultation and / or in coordination of care. Return for with [facility], Post op visit. The documentation within this encounter was likely aided with Dragon, and electronic insurance marketing specialist device. Please excuse any errors or omissions that may not have been recognized at the time of this encounter. [facility] History of Present illness Narrative* S/P L SI fusion last yr. Pending R SI fusion. The L SI was injected yesterday. Will continue with lumbar and pelvic floor stability exercises. The patient preferred that pool be included in her program. * Clinical Presentation: Stable and/or uncomplicated characteristics. * Level of Complexity: low [facility] Work Phone: [phone]) 371-729508-27-2022 History of Present illness Narrative* The pt presents with Medical Dx of Sacroillitis, S/P SI surgery with 3 permanent pins on 06/19/2022.Pt presents with the following deficits: increased pain, decreased strength, ROM, flexibility, functional movement of LB and ability to lift objects. Pt would benefit from PT services in order to improve on these deficits and to maximize strength and ability for functional activity/mobility. * Clinical Presentation: Evolving with changing characteristics. * Level of Complexity: low * Problem List: activity limitations, ADLs/IADLs/self care skills, decreased knowledge of HEP, pain, range of motion/joint mobility and strength. [facility] Work Phone: 1(953) 826-857108-25-2022 History of Present illness Narrative* Yumiko Sierra, PT - 06/17/2022 12:35 PM EDT 06/17/22 1327 Surgery Information RN Approved Intervention as tolerated;out of bed Referring Physician Siegal Surgery date 06/17/22 Type of Surgery SI arthrodesis Home Setting Residence House (ranch one step into home) Lives With spouse First floor setup bedroom;tub shower Number of stairs to enter home 1 Mobility Equipment Available 4 wheeled walker Home Environment Details will have help as needed Patient Orientation Statement Patient Orientation Statement normal, states she feels foggy, but oriented Range of Motion RUE WFL LUE WFL RLE WFL (wfl,) LLE (not tested, appears functional but tentative) Strength RUE WFL LUE WFL RLE WFL LLE not tested (can wt bear and move functionally) Functional Status Bed Mobility / Transfers cues and cga for pattern, can Ambulation/Description of Gait Walked with large based gait pattern, mildly unsteady, controlled with gt belt, pts able to assist sba, improved with practice, walked 150 feet with cga to sba Balance Sitting good Standing good Walking fair Other Testing Posture wfl Skin Condition incision L SI Teaching patient was instructed in and/or given a handout on log rolling technique;patient was given a handout on tips for proper body mechanics;the therapist reinforced the physician's orders to wear the brce/corset as directed.;other (see comment) (see preop , note in chart from out pt) Assessment Rehab Potential good PRIOR LEVEL AM-PAC Basic Mobility Inpatient Short Form Turning over in bed 4 - No Assistance Sitting/standing from chair 4 - No Assistance Moving from lying on back to sitting 4 - No Assistance Moving to and from bed to chair 4 - No Assistance Walk in hospital room 4 - No Assistance Climbing 3-5 steps with a railing 4 - No Assistance PRIOR LEVEL AM-PAC Mobility Raw Score 24 PRIOR LEVEL AM-PAC Mobility Functional Limitation/Modifier 0.00% Prior Functional Impairment in Basic Mobility CURRENT AM-PAC Basic Mobility Inpatient Short Form Turning over in bed 3 - A Little Assistance Sitting/standing from chair 3 - A Little Assistance Moving from lying on back to sitting 3 - A Little Assistance Moving to and from bed to chair 3 - A Little Assistance Walk in hospital room 3 - A Little Assistance Climbing 3-5 steps with a railing 3 - A Little Assistance CURRENT [facility] Mobility Raw Score 18 [facility] Functional Limitation/Modifier 46.58% Currently Impaired in Basic Mobility - [facility] Goals Perform bed mobility independently/supervision yes Perform sit to stand transfers with standby assistance/supervision yes Patient will ambulate with assistive device PRN and standby assistance/supervision for 100 feet yes Patient and/or family demonstrates or describes how to don and doff brace or corset appropriately if ordered yes Negotiate stairs with assistance if needed (not tested not necessary) Plan Treatment Planned gait training family instruction;gait training patient instruction Therapy Frequency (one time today only, at post op) Treatment Today gait training Initial Evaluation/Screen Completed? yes Therapist Information [place] # [id number] General Information Pertinent History of Current Problem Ongoing pain and instability Yumiko Sierra PT documented in this [facility] [place]08-25-2022 Hospital Discharge instructions* Discharge Instructions* Iraj Hooker RN - 06/17/2022 12:[address] [facility] Home Going Instructions ACTIVITES: For Twelve Weeks: No heavy lifting, bending or twisting Do not lift anything that weighs more than 10 pounds. Do not push or pull anything Short frequent walks are good for you. Increase your activity gradually. If your pain increases and you get tired, rest. Do your exercises as instructed by the therapist. It is OK to use stairs INCISION CARE: Keep your incision covered until Post Op day # 2. Then remove your dressing and shower. It is okay to get your incision wet. Do not soak in tub or pool until 30 days after your surgery. SELF CARE: If a lumbar brace is ordered, wear it when you are out of bed. When in bed, do not wear brace. If you have an incision on your low back, always wear a T-shirt tucked into your underwear to avoid rubbing of your underwear s elastic band against your incision. Wear lumbar brace over a cotton T shirt. OTHER INFORMATION: You can be a passenger in a car anytime. You cannot drive until you are released by Dr. Sigala. You will have good days, and bad days. This is okay and is part of the healing process. You may experience numbness, tingling, or pain in areas that you did not have before surgery. Again, this is okay and is part of the healing process. Wean your narcotics, anti-inflammatory, and muscle relaxant medications rapidly. You must take an over the counter stool softener while taking narcotic pain medication to prevent constipation. Colace, Senna, Dulcolax, and Milk of Magnesia are some options. No smoking, nicotine products, or anti-inflammatory medications should be taken for 6 months if youhave had a cervical, thoracic, or lumbar fusion. Your bone may not fuse or glue together if you dont follow this carefully. Please attend family, community and orthodox events as soon as possible after your surgery. These functions help speed up your recovery. Please call the office: if you have any questions or concerns during your post op recovery at home WHEN TO NOTIFY YOUR SURGEON: Your temperature is 101 degrees or over and does not respond to Tylenol You notice drainage, increased redness, or warmth at your incision You have increasing pain that is not relieved by rest or medication You have calf pain or unusual swelling in your legs If you have shortness of breath, chest pain, or abnormal coughing, CALL [phone] FOLLOW UP APPOINTMENT: Call Dr. Sigala s office: to schedule a follow up appointment for 2 weeks post-op.If you have hardware in you from the surgery, you will need x-rays prior to your appointment. When you make your follow up appointment with our office please let us know to which facility the x-ray prescription should be faxed. * Attachments The following attachments cannot be sent through Care Everywhere. * General Anesthesia ([place]) documented in this [facility] [place]08-25-2022 Nurse Surgical operation note* Iraj Hooker RN - 06/17/2022 12:10 PM EDT PT present in bay working with patient. [facility] Note* Iraj Hooker RN - 06/17/2022 12:10 PM EDT PT present in bay working with patient. documented in this encounterProm[facility] Note* Brief Op Note - Isreal Sigala MD - 06/17/2022 10:24 AM EDT POST OPERATIVE/PROCEDURE NOTE Elena Galeano ([id number]) SURGEON Surgeon(s) and Role: * Isreal Sigala MD - Primary HEAD STOCK TRANSFER CLERK Fahad ANESTHESIOLOGIST GRAD INTERN: Francois Ashford APRN-GRAD INTERN SURGICAL STAFF Single Pass Soil Stabilizer Operator: Clara Mello RN Scrub Person: Samia [employer] Sales Clerk: Sarah Vásquez RN PROCEDURE PERFORMED Procedure(s) (LRB): ARTHRODESIS SACROILIAC JOINT MINIMALLY INVASIVE (Left) GUIDANCE FLUOROSCOPIC NEEDLE OR CATHETER PLACEMENT FOR SPINE INJECTION ADD-ON PX (Left) PRIMARY CLOSURE Yes ANESTHESIA (type of) General ESTIMATED BLOOD LOSS Minimal DRAINS None BLOOD PRODUCTS None FLUIDS Intake/Output Summary (Last 24 hours) at 06/17/2022 1024 Last data filed at 06/17/2022 1023 Gross per 24 hour Intake 1100 ml Output -- Net 1100 ml PRE OPERATIVE DIAGNOSIS Sacroiliitis [M46.1] POST OPERATIVE DIAGNOSIS Post-Op Diagnosis Codes: * Sacroiliitis [M46.1] FINDINGS No significant abnormalities CONDITION OF PATIENT stabale COMPLICATIONS None GRAFTS AND/OR IMPLANTS See OR Nursing Documentation SPECIMENS No specimen sent * No specimens in log * Isreal Sigala MD June 17, 2022 10:24 AM [facility] Miscellaneous Notes* Brief Op Note - Isreal Sigala MD - 06/17/2022 10:24 AM EDT POST OPERATIVE/PROCEDURE NOTE Elena Galeano ([id number]) SURGEON Surgeon(s) and Role: * Isreal Sigala MD - Primary HEAD STOCK TRANSFER CLERK Fahad ANESTHESIOLOGIST GRAD INTERN: Francois Ashford APRN-GRAD INTERN SURGICAL STAFF Single Pass Soil Stabilizer Operator: Clara Mello RN Scrub Person: Samia [employer] Sales Clerk: Sarah Vásquez RN PROCEDURE PERFORMED Procedure(s) (LRB): ARTHRODESIS SACROILIAC JOINT MINIMALLY INVASIVE (Left) GUIDANCE FLUOROSCOPIC NEEDLE OR CATHETER PLACEMENT FOR SPINE INJECTION ADD-ON PX (Left) PRIMARY CLOSURE Yes ANESTHESIA (type of) General ESTIMATED BLOOD LOSS Minimal DRAINS None BLOOD PRODUCTS None FLUIDS Intake/Output Summary (Last 24 hours) at 06/17/2022 1024 Last data filed at 06/17/2022 1023 Gross per 24 hour Intake 1100 ml Output -- Net 1100 ml PRE OPERATIVE DIAGNOSIS Sacroiliitis [M46.1] POST OPERATIVE DIAGNOSIS Post-Op Diagnosis Codes: * Sacroiliitis [M46.1] FINDINGS No significant abnormalities CONDITION OF PATIENT stabale COMPLICATIONS None GRAFTS AND/OR IMPLANTS See OR Nursing Documentation SPECIMENS No specimen sent * No specimens in log * Isreal Sigala MD June 17, 2022 10:24 AM documented in this [facility] [place]08-15-2022 History of Present illness Narrative* Dariusz Rangel MD - 06/07/2022 1:00 PM EDT History of Present Illness Sarah Jackson is a 62 yo female with hx of 3 previous vaginal deliveries now referred for evaluation of urinary incontinence. Patient has had issues over the last 1.5 years. Patient leaks urine before being able to get to toilet. Leaks with cough, laugh, and sneeze. Voids 2 x per night. Will leak en route to bathroom at night. Sound and feel of water will give patient urge to go to bathroom. Uses pad or liner only when traveling away from home. Drinks 1 cup of caffeinated coffee each morning. Patient has previously seen per urologist as well as PCP and recommended f/u with general utility worker. Denies pressure or prolapse symptoms. Patient has been on anticholinergic per Dr. Garner. Currently on myrbetriq daily. Patient had CMG performed on 06/01/22. Patient has a pain like feeling that make her think that every time she voids she is getting a bladder infection. Last urine culture was 09/13 and was negative. Patient describes a weird like pain. Pain will be in the area of the urethra. CMG reviewed, and DI noted and ALICIA noted only with one episode of valsalva at medium volume. See report The following portions of the patients of the chart have reviewed and updated as required. Patient Active Problem List Diagnosis CLL (chronic lymphocytic leukemia) PVC's (premature ventricular contractions) Essential hypertension Gastroesophageal reflux disease without esophagitis Chronic sinusitis Non-seasonal allergic rhinitis Former smoker-Quit 2011 Elevated LFTs Moderate persistent asthma without complication Hypertriglyceridemia Hiatal hernia S/P unilateral salpingo-oophorectomy History of anemia PERCY on CPAP-BiPAP Set at 14/4 CM/H2O S/P total knee arthroplasty, right Primary osteoarthritis of both knees Insomnia Vitamin D deficiency Fatty liver Internal and external hemorrhoids without complication Renal cyst, right Duodenal diverticulum Paroxysmal atrial fibrillation Well adult exam Hepatomegaly Chronic obstructive pulmonary disease Esophagitis, Clyo grade A Obesity (BMI 30.0-34.9) Idiopathic chronic gout without tophus Hyperlipidemia LDL goal <70 Fatty food intolerance Seborrheic keratosis, inflamed-Left thigh-S/P Excision Low HDL (under 40) Encounter for screening mammogram for breast cancer Anxiety and depression Allergic conjunctivitis of both eyes Combined forms of age-related cataract, bilateral Bilateral dry eyes Irregular astigmatism of right eye Regular astigmatism of left eye Pinguecula of both eyes Blepharitis of upper eyelids of both eyes [id number] on 09-30-2020 Fatigue Urinary frequency ASCUS of cervix with negative high risk HPV Macrocytosis Folate deficiency Unspecified amblyopia, right eye Hypermetropia of left eye Myopia of right eye Presbyopia History of cataract extraction Pseudophakia Spondylosis of lumbar region without myelopathy or radiculopathy Other idiopathic scoliosis, lumbar region Chronic midline low back pain without sciatica History of ETOH abuse Esophageal stenosis Chronic gastritis without bleeding CKD (chronic kidney disease) stage 2, GFR 60-89 ml/min Mixed stress and urge incontinence Spinal stenosis of lumbar region without neurogenic claudication Primary osteoarthritis of both hips-Mild Osteopenia determined by x-ray B12 deficiency Anemia HNP (herniated nucleus pulposus), lumbar-Multi level 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 disease, without long-term current use of insulin Spondylosis of cervical region without myelopathy or radiculopathy Pulmonary emphysema Current Outpatient Medications Medication Sig Dispense Refill albuterol (VENTOLIN HFA) 108 (90 Base) MCG/ACT Aero Soln inhaler Inhale 2 puffs every 6 hours as needed for Wheezing. 1 Inhaler 0 Alirocumab 75 MG/ML Solution Auto-injector Inject 75 mg under the skin every [address] Calderon aspirin EC [address] Take 81 mg by mouth daily with breakfast. OTC buPROPion (Wellbutrin XL) 300 MG tablet XL Take 1 tablet by mouth every morning before breakfast. 90 tablet 0 carveDILOL (Coreg) 12.5 MG tablet Take 1 tablet by mouth 2 times daily with meals. 180 tablet 3 cetirizine 10 MG tablet Take 1 tablet by mouth daily. OTC Clindamycin Phos-Benzoyl Perox 1.2-3.75 % Gel Apply 1 Application topically daily. Given by Dermatology Dr. Dejesus cyanocobalamin 1000 MCG tablet Take 1 tablet by mouth daily. Chew 1 tab q daily 90 tablet 0 escitalopram 20 MG tablet Take 1 tablet by mouth daily. 90 tablet 0 fenofibrate 160 MG tablet Take 1 tablet by mouth daily. 90 tablet 0 folic acid 1 MG tablet Take 1 tablet by mouth daily. 90 tablet 0 NON-FORMULARY 3 caps q daily of Balance of Nature pantoprazole (Protonix) [address] tablet DR Take 1 tablet by mouth 2 times daily (take before meals). 180 tablet 0 Repatha SureClick 140 MG/ML Solution Auto-injector injection traZODone 100 MG tablet Take 1 tablet by mouth at bedtime. 90 tablet 0 triamterene-hydrochlorothiazide (Dyazide) 37.5-25 MG per capsule Take 1 capsule by mouth daily. Cancel previous refills 90 capsule 0 budesonide (Pulmicort Flexhaler) 180 MCG/ACT inhaler Inhale 1 puff 2 times daily. Rinse mouth with water after each dose 3 Each 0 losartan (Cozaar) 50 MG tablet Take 1 tablet by mouth daily. (Patient not taking: Reported on 06/01/2022) 90 tablet 3 Mirabegron ER (Myrbetriq) 50 MG tablet Take 1 tablet by mouth daily. (Patient not taking: Reported on 06/01/2022) 30 tablet 11 Misc. Devices Misc by Unknown route. Auto BIPAP max IPAP 14 min EPAP 4 PS 5 set up 02/06/21 DME [facility] (Patient not taking: Reported on 06/07/2022) phenazopyridine 200 MG tablet Take 1 tablet by mouth 3 times daily for 4 days. 12 tablet 0 No current facility-administered medications for this visit. Past Medical History: Diagnosis Date A-fib Anemia Arrhythmia ASCUS of cervix with negative high risk HPV Asthma B12 deficiency CLL (chronic lymphocytic leukemia) 2011 [id number] on 09-30-2020 Depression Diffuse non-Hodgkin's lymphoma chemotherapy Folate deficiency GERD (gastroesophageal reflux disease) Hiatal hernia Hyperglycemia Hyperlipidemia Hypertension Non-Hodgkin lymphoma 2011 PERCY (obstructive sleep apnea) PVC's (premature ventricular contractions) Allergies Allergen Reactions Nsaids Has CKD-2 Past Surgical History: Procedure Laterality Date EGD W/ DILATION BALLOON N/A 12/01/2021 Laterality: N/A; Surgeon: Indra Parrish DO; Location: [facility] SHOULDER ARTHROSCOPY Left 06/18/2021 REMOVAL CENTRAL VENOUS ACCESS DEVICE TUNNELED W/ PORT PUMP Left 09/13/2019 Laterality: Left; Surgeon: Eduardo Muñoz MD; Location: [facility] INTERVENTIONAL RADIOLOGY (VIR) EGD W/ DILATION BALLOON N/A 06/30/2018 Laterality: N/A; Surgeon: Indra Parrish DO; Location: [facility] EGD DIAGNOSTIC N/A 04/07/2018 Laterality: N/A; Surgeon: Wilner Leigh MD; Location: [facility] END[facility] COLONOSCOPY DIAGNOSTIC N/A 04/07/2018 Laterality: N/A; Surgeon: Wilner Leigh MD; Location: [facility] END[facility] ARTHROPLASTY KNEE TOTAL Right 04/2015 INSERTION PICC W/ PORT PUMP 2015 power port COLONOSCOPY DIAGNOSTIC 2006 SALPINGO-OOPHORECTOMY OPEN N/A 1983 APPENDECTOMY OPEN 1983 TONSILLECTOMY ADENOIDECTOMY 1968 EGD DIAGNOSTIC 10 months ago OB History 3 Para 3 Term 3 AB Living 2 SAB IAB Ectopic Molar Multiple Live Births 2 Social History Socioeconomic History Marital status: Spouse name: Not on file Number of children: Not on file Years of education: Not on file Highest education level: Not on file Occupational History Not on file Tobacco Use Smoking status: Former Smoker Packs/day: 0.75 Years: 35.00 Pack years: 26.25 Types: Cigarettes Quit date: 04/23/2013 Years since quittin.1 Smokeless tobacco: Never Used Vaping Use Vaping Use: Never used Substance and Sexual Activity Alcohol use: Not Currently Alcohol/week: 2.0 standard drinks Types: 2 Cans of beer per week Comment: Hx ETOH abuse,and now 2 beers weekly Drug use: Never Sexual activity: Not Currently Other Topics Concern Service Not Asked Blood Transfusions Not Asked Caffeine Concern Not Asked Occupational Exposure Not Asked Hobby Hazards Not Asked Sleep Concern Not Asked Stress Concern Not Asked Weight Concern Not Asked Special Diet Not Asked Back Care Not Asked Exercise Not Asked Bike Helmet Not Asked Seat Belt Not Asked Domestic Violence Not Asked Social History Narrative Not on file Social Determinants of Health Financial Resource Strain: Not on file Food Insecurity: Not on file Transportation Needs: Not on file Physical Activity: Not on file Stress: Not on file Social Connections: Not on file Intimate Partner Violence: Not on file Housing Stability: Not on file Family History Problem Relation Age of Onset Breast Cancer Maternal Aunt Ovarian Cancer Paternal Aunt Cancer Paternal Aunt brain Hypertension Mother Lipid Disorder Mother Depression Mother Dementia Father Lung Cancer Maternal Grandfather Cancer- Other Maternal Uncle melanoma Hypertension Son Lipid Disorder Daughter No known problems Daughter Autism Grandson Review of Systems Constitutional: Negative. Negative for activity change, appetite change, chills, diaphoresis, fatigue and fever. HENT: Negative. Negative for congestion and dental problem. Eyes: Negative for discharge and itching. Respiratory: Negative for apnea, cough, chest tightness, shortness of breath and wheezing. Cardiovascular: Negative for chest pain and leg swelling. Gastrointestinal: Negative for abdominal distention, abdominal pain and nausea. Endocrine: Negative for cold intolerance, heat intolerance, polydipsia and polyuria. Genitourinary: Negative for decreased urine volume, difficulty urinating, dysuria and genital sores. Symptoms as noted in [place] Musculoskeletal: Negative for arthralgias, back pain, gait problem and joint swelling. Skin: Negative for color change, pallor and rash. Allergic/Immunologic: Negative. Neurological: Negative for dizziness, tremors, seizures, weakness, light- headedness and headaches. Hematological: Negative for adenopathy. Does not bruise/bleed easily. Psychiatric/Behavioral: Negative for agitation, behavioral problems, hallucinations and suicidal ideas. The patient is not nervous/anxious. Vitals: Blood pressure 126/74, height 5' 5 (1.651 m), weight 214 lb (97.1 kg), not currently . Physical Exam Genitourinary: Comments: External genitalia normal Vagina pink, rugose, without discharge First degree cystocoele and rectocoele. No uterine prolapse. Q tip: 10 to 50 degrees, without ALICIA Cx: No gross lesions Uterus: Benign, nontender, mobile Adnexa: Benign, nontender, no masses. Skin: General: Skin is warm and dry. Neurological: Mental Status: She is alert and oriented to person, place, and time. Psychiatric: Judgment: Judgment normal. Neurological Exam Mental Status Alert. Oriented to person, place, and time. Assessment and Plan 1. Detrusor instability of bladder CMG appears to confirm DI, and will thus continue patient on myrbetriq. Was unable to provoke ALICIA in the office, but was noted on CMG. Do not believe the patient would immediately benefit from sling at the present time 2. Urinary frequency Patient with multiple urinalyses with no obvious uti findings. Will send urine for culture, await results, and in light of dysuria, will give pyridium for 4 days and have patient f/u in 2 weeks to see if this improved her dysuria. Consideration for proceeding with cytourethroscopy and hydrodilationof the bladder to r/o I.C. should be considered. 3. Dysuria See above - URINE CULTURE; Future - URINE CULTURE 4. Urethral hypermobility See above. Patient, overall, describes the frequency of urination and needle like pain in the urethra as the most concerning symptoms. Sling may be warranted in the future, but this does not appear to be her primary concern. 5. Functional urinary incontinence See above. Face to face time with this patient was approximately 30 minutes with greater than 50% of the time spent in consultation and / or in coordination of care. Return in about 2 weeks (around 06/21/2022) for with TK, f/u 20 min. The documentation within this encounter was likely aided with [employer], and electronic insurance marketing specialist device. Please excuse any errors or omissions that may not have been recognized at the time of this encounter. documented in this encounter[facility] History of Present illness Narrative* Fernie Mcgill Reggie, DO - 05/26/2022 1:00 PM EDT History of Present Illness HISTORY OF PRESENT ILLNESS: 62 y.o. female presents with complaints of: Encounter Diagnoses Name Primary? 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 disease, without long-term current use of insulin Yes Hyperlipidemia LDL goal <70 Hypertriglyceridemia Idiopathic chronic gout without tophus, unspecified site B12 deficiency Fatty liver Folate deficiency Gastroesophageal reflux disease without esophagitis Hepatomegaly PERCY on CPAP-BiPAP Set at 14/4 CM/H2O Vitamin D deficiency Chronic midline low back pain without sciatica Essential hypertension Paroxysmal atrial fibrillation CLL (chronic lymphocytic leukemia) PVC's (premature ventricular contractions) Internal and external hemorrhoids without complication Anemia, unspecified type CKD (chronic kidney disease) stage 2, GFR 60-89 ml/min Chronic obstructive pulmonary disease, unspecified COPD type Non-seasonal allergic rhinitis, unspecified trigger Moderate persistent asthma without complication Chronic sinusitis, unspecified location Esophagitis, Clyo grade A Esophageal stenosis Duodenal diverticulum Chronic gastritis without bleeding, unspecified gastritis type Combined forms of age-related cataract, bilateral Unspecified amblyopia, right eye Regular astigmatism of left eye Pseudophakia 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 Spondylosis of lumbar region without myelopathy or radiculopathy Spinal stenosis of lumbar region without neurogenic claudication Primary osteoarthritis of both knees Primary osteoarthritis of both hips-Mild Other idiopathic scoliosis, lumbar region HNP (herniated nucleus pulposus), lumbar-Multi level Hiatal hernia Renal cyst, right Mixed stress and urge incontinence Seborrheic keratosis, inflamed-Left thigh-S/P Excision Macrocytosis Anxiety and depression Urinary frequency Presbyopia Osteopenia determined by x-ray Obesity (BMI 30.0-34.9) S/P total knee arthroplasty, right S/P unilateral salpingo-oophorectomy Low HDL (under 40) Myopia of right eye Irregular astigmatism of right eye Insomnia, unspecified type History of ETOH abuse History of cataract extraction, unspecified laterality Fatty food intolerance Fatigue, unspecified type Elevated LFTs Bilateral dry eyes ASCUS of cervix with negative high risk HPV Spondylosis of cervical region without myelopathy or radiculopathy Pulmonary emphysema, unspecified emphysema type Type 2 DM, Hyperlipidemia, A. Fib, HTN and CLL. Recent Glucose 134, A1C 5.9, GFR 75, LDL 56, TG 194, Fe 9, TIBC high. All other labs WNL. Non Smoker. Needs refills. +Fam HX DM. Having Left SI fusion on approx 06-17-[address] Sigala and needs Pre-op clearance. Never saw Dr. Abdalla as is seeking anoral device offered by to Tx PERCY. +LBP, daily, moderate. No radiation. No numbness or weakness. +Frequency with intermittent incontinence. +Left knee pain, daily, moderate. Worse with activity. Noblurred vision.No C.P., SOB, Edema, Palpitations, Dizziness, Fatigue, GERD, Melena, Hematochezia, Dysuria, or Frequency. All others negative on ROS. Had fallen at home in , requiring scalp kwasi. CT head negative. CT of C-spine showed severe DJD C-spine and emphysema. Review of Systems Constitutional: Negative for fatigue and unexpected weight change. Eyes: Negative for visual disturbance. Respiratory: Negative for shortness of breath. Cardiovascular: Negative for chest pain, palpitations and leg swelling. Gastrointestinal: Negative for abdominal pain and blood in stool. No GERD Genitourinary: Positive for difficulty urinating and frequency. Negative for dysuria. Musculoskeletal: Positive for arthralgias (left knee) and back pain. Neurological: Negative for dizziness, weakness and numbness. Psychiatric/Behavioral: Negative for dysphoric mood and sleep disturbance. The patient is not nervous/anxious. All other systems reviewed and are negative. Vitals: Blood pressure 144/79, pulse 70, temperature 98.4 F (36.9 C), temperature source Temporal, resp. rate 16, height 1.676 m (5' 6), weight 95.6 kg (210 lb 11.2 oz), SpO2 96 %, not currently . Physical Exam Constitutional: General: She is not in acute distress. Appearance: Normal appearance. She is obese. She is not ill-appearing. HENT: Head: Normocephalic and atraumatic. Nose: No congestion. Eyes: General: No scleral icterus. Right eye: No discharge. Left eye: No discharge. Extraocular Movements: Extraocular movements intact. Conjunctiva/sclera: Conjunctivae normal. Pupils: Pupils are equal, round, and reactive to light. Pulmonary: Effort: Pulmonary effort is normal. Breath sounds: No wheezing or rhonchi. Abdominal: General: Abdomen is flat. Bowel sounds are normal. There is no distension. Tenderness: There is no abdominal tenderness. Musculoskeletal: General: Normal range of motion. Cervical back: Normal range of motion and neck supple. No rigidity. No muscular tenderness. Right lower leg: No edema. Left lower leg: No edema. Skin: Coloration: Skin is not jaundiced. Findings: No bruising, erythema or rash. Neurological: General: No focal deficit present. Mental Status: She is alert and oriented to person, place, and time. Mental status is at baseline. Psychiatric: Mood and Affect: Mood normal. Behavior: Behavior normal. Thought Content: Thought content normal. Judgment: Judgment normal. Neurological Exam Mental Status Alert. Oriented to person, place, and time. Cranial Nerves CN III, IV, : Extraocular movements intact bilaterally. Pupils equal round and reactive to light bilaterally. Assessment and Plan Refills given all meds requested. Pre-op clearance for planned medical procedure on approx 06-17-[address] Sigala and faxed to Dr. Sigala today. She should hold her Baby ASA for 7 days prior to surgery, and bring her BiPAP machine to recovery. Schedule soon with sleep specialists at to discuss [place] options with PERCY oral device, in [place] soon. COVID-19 vaccine declined. Risks discussed. Check testing on 05-28-[address] Rangel and alaina on 06-07-[address] Rangel who should refill Myrbetriq in when due if he tells the patient to remain on it, as she will not be recking with Jonathan Cm NP. Alaina with Optho Dr. Warren at [facility]. Alaina 08-04-[address] Naty Bhakta and get Flu with her. Hold alaina with Dr. Nicole at patients' request. Alaina with Calista Blum NP at with Dr. León [facility] in [place]. Alaina 08-18-22, sooner prn. Alaina all labs,UA, Vit D, A1C, Fe, B12 and Folate in 2022. Alaina 02-03-23 with 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 for PAP annually, 3-DMammogram and DEXA. Alaina 05-03-[address] Calderon who has also cleared the patient for the upcoming surgery. Alaina PFT in . Alaina Colon in .Total time spent 32 minutes, excluding tests andprocedures. Diet and lifestyle counseling was given, and care coordinated. OARRS report was received and assessed, and is consistent with the medications prescribed.Thank you for choosing Dr. Fernie Paredes s [facility] for your [facility].The patients' entire past medical, surgical, family, social history, allergies, medications, recent labs, recent imaging and [employer] web[employer] commerce consultant letters were reviewed and updated. ASSESSMENT & PLAN: Encounter Diagnoses Name Primary? 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 disease, without long-term current use of insulin Yes Hyperlipidemia LDL goal <70 Hypertriglyceridemia Idiopathic chronic gout without tophus, unspecified site B12 deficiency Fatty liver Folate deficiency Gastroesophageal reflux disease without esophagitis Hepatomegaly PERCY on CPAP-BiPAP Set at 14/4 CM/H2O Vitamin D deficiency Chronic midline low back pain without sciatica Essential hypertension Paroxysmal atrial fibrillation CLL (chronic lymphocytic leukemia) PVC's (premature ventricular contractions) Internal and external hemorrhoids without complication Anemia, unspecified type CKD (chronic kidney disease) stage 2, GFR 60-89 ml/min Chronic obstructive pulmonary disease, unspecified COPD type Non-seasonal allergic rhinitis, unspecified trigger Moderate persistent asthma without complication Chronic sinusitis, unspecified location Esophagitis, Clyo grade A Esophageal stenosis Duodenal diverticulum Chronic gastritis without bleeding, unspecified gastritis type Combined forms of age-related cataract, bilateral Unspecified amblyopia, right eye Regular astigmatism of left eye Pseudophakia 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 Spondylosis of lumbar region without myelopathy or radiculopathy Spinal stenosis of lumbar region without neurogenic claudication Primary osteoarthritis of both knees Primary osteoarthritis of both hips-Mild Other idiopathic scoliosis, lumbar region HNP (herniated nucleus pulposus), lumbar-Multi level Hiatal hernia Renal cyst, right Mixed stress and urge incontinence Seborrheic keratosis, inflamed-Left thigh-S/P Excision Macrocytosis Anxiety and depression Urinary frequency Presbyopia Osteopenia determined by x-ray Obesity (BMI 30.0-34.9) S/P total knee arthroplasty, right S/P unilateral salpingo-oophorectomy Low HDL (under 40) Myopia of right eye Irregular astigmatism of right eye Insomnia, unspecified type History of ETOH abuse History of cataract extraction, unspecified laterality Fatty food intolerance Fatigue, unspecified type Elevated LFTs Bilateral dry eyes ASCUS of cervix with negative high risk HPV Spondylosis of cervical region without myelopathy or radiculopathy Pulmonary emphysema, unspecified emphysema type No orders of the defined types were placed in this encounter. Medications Discontinued During This Encounter Medication Reason Evolocumab 140 MG/ML Solution Auto-injector injection potassium chloride 10 MEQ Tab CR tablet ER Mirabegron ER 25 MG tablet aspirin 81 MG Chew Tab chewable tablet triamterene-hydrochlorothiazide (Dyazide) 37.5-25 MG per capsule Reorder budesonide (Pulmicort Flexhaler) 180 MCG/ACT inhaler Reorder buPROPion (Wellbutrin XL) 300 MG tablet XL Reorder escitalopram 20 MG tablet Reorder folic acid 1 MG tablet Reorder pantoprazole (Protonix) [address] brian ALLISON Reorder traZODone 100 MG tablet Reorder cyanocobalamin 1000 MCG tablet Reorder Current Outpatient Medications Medication Sig Dispense Refill Alirocumab 75 MG/ML Solution Auto-injector Inject 75 mg under the skin every [address] Calderon aspirin EC [address] Take 81 mg by mouth daily with breakfast. OTC budesonide (Pulmicort Flexhaler) 180 MCG/ACT inhaler Inhale 1 puff 2 times daily. Rinse mouth with water after each dose 3 Each 0 buPROPion (Wellbutrin XL) 300 MG tablet XL Take 1 tablet by mouth every morning before breakfast. 90 tablet 0 cyanocobalamin 1000 MCG tablet Take 1 tablet by mouth daily. Chew 1 tab q daily 90 tablet 0 escitalopram 20 MG tablet Take 1 tablet by mouth daily. 90 tablet 0 folic acid 1 MG tablet Take 1 tablet by mouth daily. 90 tablet 0 pantoprazole (Protonix) [address] brian ALLISON Take 1 tablet by mouth 2 times daily (take before meals). 180 tablet 0 traZODone 100 MG tablet Take 1 tablet by mouth at bedtime. 90 tablet 0 triamterene-hydrochlorothiazide (Dyazide) 37.5-25 MG per capsule Take 1 capsule by mouth daily. Cancel previous refills 90 capsule 0 albuterol (VENTOLIN HFA) 108 (90 Base) MCG/ACT Aero Soln inhaler Inhale 2 puffs every 6 hours as needed for Wheezing. 1 Inhaler 0 carveDILOL (Coreg) 12.5 MG tablet Take 1 tablet by mouth 2 times daily with meals. 180 tablet 3 cetirizine 10 MG tablet Take 1 tablet by mouth daily. OTC Clindamycin Phos-Benzoyl Perox 1.2-3.75 % Gel Apply 1 Application topically daily. Given by Dermatology Dr. Dejesus fenofibrate 160 MG tablet Take 1 tablet by mouth daily. 90 tablet 0 losartan (Cozaar) 50 MG tablet Take 1 tablet by mouth daily. (Patient not taking: Reported on 05/26/2022) 90 tablet 3 Mirabegron ER (Myrbetriq) 50 MG tablet Take 1 tablet by mouth daily. 30 tablet 11 Misc. Devices Misc by Unknown route. Auto BIPAP max IPAP 14 min EPAP 4 PS 5 set up 02/06/21 DME [facility] NON-FORMULARY 3 caps q daily of Balance of Nature No current facility-administered medications for this visit. Counseling given: No Follow up appointment(s) have been discussed with the patient. The patient is given an After Visit Summary sheet that lists all of their medications with directions, their allergies, orders placed during this encounter, immunization dates, and follow- up instructions. Fernie Paredes DO [address] [address] This note is electronically signed in the electronic medical record. documented in this encounterProm[facility]06[facility] History of Present illness Narrative* Jonathan Cm CNP - 04/16/2022 1:00 PM EDT Chief Complaint Patient presents with Follow-up 1 mo Mixed Incontinence HPI: Sarah Galeano is a 62-year-old female presenting for a 1 month follow-up. She is known to the urology Department for voiding dysfunction. She has tried and failed tolterodine and was started on Myrbetriq at the last appointment. She reports slight improvement to the nocturia but no change to the bothersome urgency and frequency. Mixed incontinence is intermittent. She also reports dysuria and saysit feels similar to when she gets a UTI. She did have a positive PCR showing strep in February 2022 which was treated appropropriately. Denies gross hematuria or flank pain. UA- negative PVR- 42 PCR urine results, previous provider notes, CMP reviewed ROS: Nurse Note: Review of Systems Constitutional: Negative. HENT: Negative. Eyes: Negative. Respiratory: Negative. Cardiovascular: Negative. Gastrointestinal: Positive for abdominal pain. Endocrine: Negative. Genitourinary: Positive for difficulty urinating, frequency, pelvic pain and urgency. Musculoskeletal: Negative. Skin: Negative. Allergic/Immunologic: Negative. Neurological: Negative. Hematological: Negative. Psychiatric/Behavioral: Negative. Nursing Assessment: Physical Exam Patient here today for a 1 mo f/u for Incontinence. Patient states she feels the urge to go but is hesitant. She states she has lower abd or pelvic pain. Lab Results Component Value Date APPEARANCE clear 04/16/2022 COLOR yellow 04/16/2022 SPECIFICGRAV 1.010 04/16/2022 BLOOD neg 04/16/2022 PH 6.5 04/16/2022 PROTEIN neg 04/16/2022 UROBILINOGEN 0.2 04/16/2022 NITRITE neg 04/16/2022 LEUKOCYTE neg 04/16/2022 PVR: 42 History Allergies Allergen Reactions Nsaids Has CKD-2 has CLL (chronic lymphocytic leukemia); PVC's (premature ventricular contractions); Essential hypertension; Gastroesophageal reflux disease without esophagitis; Chronic sinusitis; Non-seasonal allergic rhinitis; Former smoker- Quit 2011; Elevated LFTs; Moderate persistent asthma without complication; Hypertriglyceridemia; Hiatal hernia; S/P unilateral salpingo-oophorectomy; History of anemia; PERCY on CPAP-BiPAP Set at 14/4 CM/H2O; S/P total knee arthroplasty, right; Primary osteoarthritis of bothknees; Insomnia; Vitamin D deficiency; Fatty liver; Internal and external hemorrhoids without complication; Renal cyst, right; Duodenal diverticulum; Paroxysmal atrial fibrillation; Well adult exam; Hepatomegaly; Chronic obstructive pulmonary disease; Esophagitis, Clyo grade A; Obesity (BMI 30.0-34.9); Idiopathic chronic gout without tophus; Hyperlipidemia LDL goal <70; Fatty food intolerance; Seborrheic keratosis, inflamed-Left thigh-S/P Excision; Low HDL (under 40); Encounter for screening mammogram for breast cancer; Anxiety and depression; Allergic conjunctivitis of both eyes; Combined forms of age-related cataract, bilateral; Bilateral dry eyes; Irregular astigmatism of righteye; Regular astigmatism of left eye; Pinguecula of both eyes; Blepharitis of upper eyelids of botheyes; [id number] on 09-30-2020; Fatigue; Urinary frequency; ASCUS of cervix with negative high risk HPV; Macrocytosis; Folate deficiency; Unspecified amblyopia, right eye; Hypermetropia of lefteye; Myopia of right eye; Presbyopia; History of cataract extraction; Pseudophakia; Spondylosis of lumbar region without myelopathy or radiculopathy; Other idiopathic scoliosis, lumbar region; Chronic midline low back pain without sciatica; History of ETOH abuse; Esophageal stenosis; Chronic gastritis without bleeding; Controlled type 2 diabetes mellitus with chronic kidney disease, without long-term current use of insulin; CKD (chronic kidney disease) stage 2, GFR 60-89 ml/min; Mixed stress and urge incontinence; Spinal stenosis of lumbar region without neurogenic claudication; Primary osteoarthritis of both hips-Mild; Osteopenia determined by x-ray; B12 deficiency; Acute cystitis without hematuria; Anemia; and HNP (herniated nucleus pulposus), lumbar-Multi level on their problem list. Current Outpatient Medications Medication Sig Dispense Refill albuterol (VENTOLIN HFA) 108 (90 Base) MCG/ACT Aero Soln inhaler Inhale 2 puffs every 6 hours as needed for Wheezing. 1 Inhaler 0 budesonide (Pulmicort Flexhaler) 180 MCG/ACT inhaler Inhale 1 puff 2 times daily. Rinse mouth with water after each dose 3 Each 0 buPROPion (Wellbutrin XL) 300 MG tablet XL Take 1 tablet by mouth every morning before breakfast. 90 tablet 0 carveDILOL (Coreg) 12.5 MG tablet Take 1 tablet by mouth 2 times daily with meals. 180 tablet 3 cetirizine 10 MG tablet Take 1 tablet by mouth daily. OTC Clindamycin Phos-Benzoyl Perox 1.2-3.75 % Gel Apply 1 Application topically daily. Given by Dermatology Dr. Dejesus cyanocobalamin 1000 MCG tablet Take 1 tablet by mouth daily. Chew 1 tab q daily 90 tablet 0 escitalopram 20 MG tablet Take 1 tablet by mouth daily. 90 tablet 0 Evolocumab 140 MG/ML Solution Auto-injector injection Inject 1 mL under the skin every 14 days. Generic for Repatha and given by Dr. Calderon 1 mL 11 fenofibrate 160 MG tablet Take 1 tablet by mouth daily. 90 tablet 0 folic acid 1 MG tablet Take 1 tablet by mouth daily. 90 tablet 0 losartan (Cozaar) 50 MG tablet Take 1 tablet by mouth daily. 90 tablet 3 Mirabegron ER 25 MG tablet Take 25 mg by mouth daily. Given by Dr. Patsy Carson. Devices Misc by Unknown route. Auto BIPAP max IPAP 14 min EPAP 4 PS 5 set up 02/06/21 DME [facility] NON-FORMULARY 3 caps BID of Balance of Nature pantoprazole (Protonix) [address] tablet DR Take 1 tablet by mouth 2 times daily (take before meals). 180 tablet 0 traZODone 100 MG tablet Take 1 tablet by mouth at bedtime. 90 tablet 0 triamterene-hydrochlorothiazide (Dyazide) 37.5-25 MG per capsule Take 1 capsule by mouth daily. 90 capsule 3 Xiidra 5 % Solution ophthalmic solution Place 2 drops in both eyes daily. Given by Dr. Warren at [facility] No current facility-administered medications for this visit. family history includes Autism in her grandson; Breast Cancer in her maternal aunt; Cancer in her paternal aunt; Cancer- Other in her maternal uncle; Dementia in her father; Depression in her mother;Hypertension in her mother and son; Lipid Disorder in her daughter and mother; Lung Cancer in her maternal grandfather; No known problems in her daughter; Ovarian Cancer in her paternal aunt. Past Medical History: Diagnosis Date Non-Hodgkin lymphoma 2011 CLL (chronic lymphocytic leukemia) 2011 A-fib Anemia Arrhythmia ASCUS of cervix with negative high risk HPV Asthma B12 deficiency CKD (chronic kidney disease) stage 2, GFR 60-89 ml/min COPD (chronic obstructive pulmonary disease) [id number] on 09-30-2020 Depression Diabetes mellitus Diffuse non-Hodgkin's lymphoma chemotherapy ETOH abuse Folate deficiency GERD (gastroesophageal reflux disease) Gout Hiatal hernia Hyperglycemia Hyperlipidemia Hypertension PERCY (obstructive sleep apnea) PVC's (premature ventricular contractions) Past Surgical History: Procedure Laterality Date EGD W/ DILATION BALLOON N/A 12/01/2021 Laterality: N/A; Surgeon: Indra Parrish DO; Location: [facility] SHOULDER ARTHROSCOPY Left 06/18/2021 REMOVAL CENTRAL VENOUS ACCESS DEVICE TUNNELED W/ PORT PUMP Left 09/13/2019 Laterality: Left; Surgeon: Eduardo Muñoz MD; Location: [facility] INTERVENTIONAL RADIOLOGY (VIR) EGD W/ DILATION BALLOON N/A 06/30/2018 Laterality: N/A; Surgeon: Indra Parrish DO; Location: [facility] EGD DIAGNOSTIC N/A 04/07/2018 Laterality: N/A; Surgeon: Wilner Leigh MD; Location: [facility] COLONOSCOPY DIAGNOSTIC N/A 04/07/2018 Laterality: N/A; Surgeon: Wilner Leigh MD; Location: [facility] ARTHROPLASTY KNEE TOTAL Right 04/2015 INSERTION PICC W/ PORT PUMP 2015 power port COLONOSCOPY DIAGNOSTIC 2006 SALPINGO-OOPHORECTOMY OPEN N/A 1983 APPENDECTOMY OPEN 1983 TONSILLECTOMY ADENOIDECTOMY 1968 EGD DIAGNOSTIC 10 months ago Social History Socioeconomic History Marital status: Spouse name: Not on file Number of children: Not on file Years of education: Not on file Highest education level: Not on file Occupational History Not on file Tobacco Use Smoking status: Former Smoker Packs/day: 0.75 Years: 35.00 Pack years: 26.25 Types: Cigarettes Quit date: 04/23/2013 Years since quittin.9 Smokeless tobacco: Never Used Vaping Use Vaping Use: Never used Substance and Sexual Activity Alcohol use: Yes Alcohol/week: 2.0 standard drinks Types: 2 Cans of beer per week Comment: Hx ETOH abuse,and now 2 beers weekly Drug use: Never Sexual activity: Not Currently Other Topics Concern Service Not Asked Blood Transfusions Not Asked Caffeine Concern Not Asked Occupational Exposure Not Asked Hobby Hazards Not Asked Sleep Concern Not Asked Stress Concern Not Asked Weight Concern Not Asked Special Diet Not Asked Back Care Not Asked Exercise Not Asked Bike Helmet Not Asked Seat Belt Not Asked Domestic Violence Not Asked Social History Narrative Not on file Social Determinants of Health Financial Resource Strain: Not on file Food Insecurity: Not on file Transportation Needs: Not on file Physical Activity: Not on file Stress: Not on file Social Connections: Not on file Intimate Partner Violence: Not on file Housing Stability: Not on file Physical Exam: Resp 18 Ht 1.676 m (5' 6) Wt 93.4 kg (206 lb) BMI 33.25 kg/m Smoking Status Former Smoker Body mass index is 33.25 kg/m . Symptoms as described in HPI Assessment/Plan: 1. Voiding dysfunction- Continued bothersome urinary urgency and frequency. She would like to be prescribed Myrbetriq as she had some benefit to her nocturia. We discussed further management options.She would like to proceed with bladder botox. Risks and benefits discussed. Surgery scheduled today. Patient with dysuria. Urine to be sent for PCR testing and treat appropriately if needed once results are obtained. Patient was advised to call with any questions or concerns. If symptoms worsen patient was advised to follow up in our office or the Emergency Dept. Benefits, Risks, Contraindications, and Complications of recommended treatments were explained the patient understands and agrees to proceed with plan. * Malou Corbett - 04/16/2022 1:00 PM EDT Nurse Note: Review of Systems Constitutional: Negative. HENT: Negative. Eyes: Negative. Respiratory: Negative. Cardiovascular: Negative. Gastrointestinal: Positive for abdominal pain. Endocrine: Negative. Genitourinary: Positive for difficulty urinating, frequency, pelvic pain and urgency. Musculoskeletal: Negative. Skin: Negative. Allergic/Immunologic: Negative. Neurological: Negative. Hematological: Negative. Psychiatric/Behavioral: Negative. Nursing Assessment: Physical Exam Patient here today for a 1 mo f/u for Incontinence. Patient states she feels the urge to go but is hesitant. She states she has lower abd or pelvic pain. Lab Results Component Value Date APPEARANCE clear 04/16/2022 COLOR yellow 04/16/2022 SPECIFICGRAV 1.010 04/16/2022 BLOOD neg 04/16/2022 PH 6.5 04/16/2022 PROTEIN neg 04/16/2022 UROBILINOGEN 0.2 04/16/2022 NITRITE neg 04/16/2022 LEUKOCYTE neg 04/16/2022 PVR: 42 documented in this encounterProm[facility] Miscellaneous Notes* Addendum Note - Jonathan Cm CNP - 04/16/2022 1:00 PM EDTAddended by: JONATHAN CM on: 04/16/2022 03:53 PM Modules accepted: Level of Service documented in this encounterPromed[facility]06-24-2022 Note* Addendum Note - Jonathan Cm CNP - 04/16/2022 1:00 PM EDTAddended by: JONATHAN CM on: 04/16/2022 03:53 PM Modules accepted: Level of Service [facility]05-31-20[facility] Instructions* Patient Instructions* Fernie Paredes DO - 03/23/2022 1:51 PM EDT Do fasting, well hydrated labs on approx 06-08-22 documented in this encounterPromedica [facility]05-31-2022 History of Present illness Narrative* Fernie Paredes DO - 03/23/2022 1:30 PM EDT History of Present Illness HISTORY OF PRESENT ILLNESS: 62 y.o. female presents with complaints of: Encounter Diagnoses Name Primary? Controlled type 2 diabetes mellitus with chronic kidney disease, without long- term current use of insulin, unspecified CKD stage Yes Hyperlipidemia LDL goal <70 Idiopathic chronic gout without tophus, unspecified site B12 deficiency Chronic gastritis without bleeding, unspecified gastritis type Folate deficiency Gastroesophageal reflux disease without esophagitis Acute cystitis without hematuria PERCY on CPAP-BiPAP Set at 14/4 CM/H2O Moderate persistent asthma without complication Chronic obstructive pulmonary disease, unspecified COPD type PVC's (premature ventricular contractions) Anemia, unspecified type Non-seasonal allergic rhinitis, unspecified trigger Paroxysmal atrial fibrillation Internal and external hemorrhoids without complication Essential hypertension Vitamin D deficiency Hepatomegaly Fatty liver Duodenal diverticulum Esophagitis, Clyo grade A Esophageal stenosis Hypertriglyceridemia Chronic midline low back pain without sciatica Allergic conjunctivitis of both eyes Blepharitis of upper eyelids of both eyes, unspecified type Combined forms of age-related cataract, bilateral 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 Pseudophakia Unspecified amblyopia, right eye Regular astigmatism of left eye Spondylosis of lumbar region without myelopathy or radiculopathy Spinal stenosis of lumbar region without neurogenic claudication Primary osteoarthritis of both knees Primary osteoarthritis of both hips-Mild Hiatal hernia Other idiopathic scoliosis, lumbar region CKD (chronic kidney disease) stage 2, GFR 60-89 ml/min Mixed stress and urge incontinence Renal cyst, right [id number] on 09-30-2020 CLL (chronic lymphocytic leukemia) Macrocytosis Urinary frequency Anxiety and depression S/P total knee arthroplasty, right S/P unilateral salpingo-oophorectomy Presbyopia Osteopenia determined by x-ray Obesity (BMI 30.0-34.9) Myopia of right eye Low HDL (under 40) Irregular astigmatism of right eye Insomnia, unspecified type History of ETOH abuse Former smoker-Quit 2011 Fatty food intolerance Fatigue, unspecified type Elevated LFTs Bilateral dry eyes ASCUS of cervix with negative high risk HPV HNP (herniated nucleus pulposus), lumbar Type 2 DM. A. Fib, B12 deficiency, UTI and obesity. C/O dysuria for 3 + months. Was just on Bactrimfrom Urology and wants trial of another ATB. Non Smoker, former. No Fam HX DM. No vaginal dischargeor dyspareunia. No blurred vision.No C.P., SOB, Edema, Palpitations, Dizziness, Fatigue, GERD, Melena, Hematochezia. +Incontinence and Frequency. Now on Mybetriq and slightly improved. +LBP, daily, moderate. No radiation. No numbness or weakness. +Moderate left knee pain. No swelling. All others negative on ROS. Recent PAP is WNL. Recent MRI L-spine showed Multi-level DJD and bulging or HNP L-spine with foraminal stenosis. Review of Systems Constitutional: Negative for fatigue and unexpected weight change. Eyes: Negative for visual disturbance. Respiratory: Negative for shortness of breath. Cardiovascular: Negative for chest pain, palpitations and leg swelling. Gastrointestinal: Negative for abdominal pain and blood in stool. No GERD Genitourinary: Positive for difficulty urinating (incontinence), dysuria and frequency. Musculoskeletal: Positive for arthralgias (left knee) and back pain. Neurological: Negative for dizziness, weakness and numbness. Psychiatric/Behavioral: Negative for dysphoric mood and sleep disturbance. The patient is not nervous/anxious. All other systems reviewed and are negative. Vitals: Blood pressure 137/78, pulse 65, temperature 97.1 F (36.2 C), resp. rate 14, height 1.651 m(5' 5), weight 93.8 kg (206 lb 12.8 oz), SpO2 97 %, not currently . Physical Exam Vitals and nursing note reviewed. Constitutional: General: She is not in acute distress. Appearance: Normal appearance. She is obese. She is not ill-appearing. HENT: Head: Normocephalic and atraumatic. Nose: No congestion. Eyes: General: No scleral icterus. Right eye: No discharge. Left eye: No discharge. Extraocular Movements: Extraocular movements intact. Conjunctiva/sclera: Conjunctivae normal. Pupils: Pupils are equal, round, and reactive to light. Pulmonary: Effort: Pulmonary effort is normal. Breath sounds: No wheezing or rhonchi. Abdominal: General: Abdomen is flat. Bowel sounds are normal. There is no distension. Tenderness: There is no abdominal tenderness. Musculoskeletal: General: Normal range of motion. Cervical back: Normal range of motion and neck supple. No rigidity. No muscular tenderness. Right lower leg: No edema. Left lower leg: No edema. Skin: Coloration: Skin is not jaundiced. Findings: No bruising, erythema or rash. Neurological: General: No focal deficit present. Mental Status: She is alert and oriented to person, place, and time. Mental status is at baseline. Psychiatric: Mood and Affect: Mood normal. Behavior: Behavior normal. Thought Content: Thought content normal. Judgment: Judgment normal. Neurological Exam Mental Status Alert. Oriented to person, place, and time. Cranial Nerves CN III, IV, : Extraocular movements intact bilaterally. Pupils equal round and reactive to light bilaterally. Assessment and Plan Check UA: Negative. RX empirically Levaquin 500 mg 1 q daily with food, #7, 0 rf's. If persists, alaina with Director Pediatric and/or Urology. COVID-19 vaccines declined. Risks discussed. Re-refer to Dr. Mcginnis to establish care for BiPAP and phone number given. Alaina 03-31-[address] Sigala. No alaina needed with Dr. Stephens. Alaina declined with Dr. Nicole. Alaina 04-16-22 with Jonathan Cm NP. Alaina 05-31-[address] Calderon. Check fasting, well hydrated CBC, CMP, A1C, Lipid, TSh, UA, Vit D. Fe, TIBC, Ferritin, B12 and Folate on approx 06-08-22 at [facility] lab. Alaina 06-15-22, sooner prn. Alaina with Dr. Calista Blum,[employer] with Dr. Sylvester, Ortho in [facility]. Alaina with DR. Warren at [facility]. Alaina 08-04-[address] Naty Bhakta, Oncology at [facility]. Alaina PFT in . Alaina 02-03-23 with SherriGillam for PAP and sooner prn persistent dysuria. Alaina DEXA and 3-D Mammogram in . Alaina Colonin .Total time spent 32 minutes, excluding tests and procedures. Diet and lifestyle counseling was given, and care coordinated. OAR[facility] report was received and assessed, and is consistent with the medications prescribed.Thank you for choosing Dr. Fernie [facility]aredes s [facility] foryour [facility] needs.The patients' entire past medical, surgical, family, social history, allergies, medications, recent labs, recent imaging and [employer] commerce consultant letters were reviewed and updated. ASSESSMENT & PLAN: Encounter Diagnoses Name Primary? Controlled type 2 diabetes mellitus with chronic kidney disease, without long- term current use of insulin, unspecified CKD stage Yes Hyperlipidemia LDL goal <70 Idiopathic chronic gout without tophus, unspecified site B12 deficiency Chronic gastritis without bleeding, unspecified gastritis type Folate deficiency Gastroesophageal reflux disease without esophagitis Acute cystitis without hematuria PERCY on CPAP-BiPAP Set at 14/4 CM/H2O Moderate persistent asthma without complication Chronic obstructive pulmonary disease, unspecified COPD type PVC's (premature ventricular contractions) Anemia, unspecified type Non-seasonal allergic rhinitis, unspecified trigger Paroxysmal atrial fibrillation Internal and external hemorrhoids without complication Essential hypertension Vitamin D deficiency Hepatomegaly Fatty liver Duodenal diverticulum Esophagitis, Clyo grade A Esophageal stenosis Hypertriglyceridemia Chronic midline low back pain without sciatica Allergic conjunctivitis of both eyes Blepharitis of upper eyelids of both eyes, unspecified type Combined forms of age-related cataract, bilateral 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 Pseudophakia Unspecified amblyopia, right eye Regular astigmatism of left eye Spondylosis of lumbar region without myelopathy or radiculopathy Spinal stenosis of lumbar region without neurogenic claudication Primary osteoarthritis of both knees Primary osteoarthritis of both hips-Mild Hiatal hernia Other idiopathic scoliosis, lumbar region CKD (chronic kidney disease) stage 2, GFR 60-89 ml/min Mixed stress and urge incontinence Renal cyst, right [id number] on 09-30-2020 CLL (chronic lymphocytic leukemia) Macrocytosis Urinary frequency Anxiety and depression S/P total knee arthroplasty, right S/P unilateral salpingo-oophorectomy Presbyopia Osteopenia determined by x-ray Obesity (BMI 30.0-34.9) Myopia of right eye Low HDL (under 40) Irregular astigmatism of right eye Insomnia, unspecified type History of ETOH abuse Former smoker-Quit 2011 Fatty food intolerance Fatigue, unspecified type Elevated LFTs Bilateral dry eyes ASCUS of cervix with negative high risk HPV HNP (herniated nucleus pulposus), lumbar Orders Placed This Encounter Procedures CBC, EDIF, PLATELET Copy to Dr. Wm. Calderon and Dr. Naty Bhakta, Oncology at [facility] Standing Status: Future Standing Expiration Date: 03/23/2023 Order Specific Question: Select research study to bill: Answer: NONE - DO NOT USE [NO STUDY] COMPREHENSIVE METABOLIC PANEL Standing Status: Future Standing Expiration Date: 03/23/2023 Order Specific Question: Select research study to bill: Answer: NONE - DO NOT USE [NO STUDY] HEMOGLOBIN A1C Standing Status: Future Standing Expiration Date: 03/23/2023 Order Specific Question: Select research study to bill: Answer: NONE - DO NOT USE [NO STUDY] LIPID PANEL W CALCULATED LDL Standing Status: Future Standing Expiration Date: 03/23/2023 Order Specific Question: Select research study to bill: Answer: NONE - DO NOT USE [NO STUDY] TSH Standing Status: Future Standing Expiration Date: 03/23/2023 Order Specific Question: Select research study to bill: Answer: NONE - DO NOT USE [NO STUDY] URIC ACID Standing Status: Future Standing Expiration Date: 03/23/2023 Order Specific Question: Select research study to bill: Answer: NONE - DO NOT USE [NO STUDY] VITAMIN D (25-HYDROXY,TOTAL) Standing Status: Future Standing Expiration Date: 03/23/2023 Order Specific Question: Select research study to bill: Answer: NONE - DO NOT USE [NO STUDY] FERRITIN Standing Status: Future Standing Expiration Date: 03/23/2023 Order Specific Question: Select research study to bill: Answer: NONE - DO NOT USE [NO STUDY] IRON/IRON BINDING/TRANSFERRIN Standing Status: Future Standing Expiration Date: 03/23/2023 Order Specific Question: Select research study to bill: Answer: NONE - DO NOT USE [NO STUDY] FOLATE, SERUM Standing Status: Future Standing Expiration Date: 03/23/2023 Order Specific Question: Select research study to bill: Answer: NONE - DO NOT USE [NO STUDY] VITAMIN B12 Standing Status: Future Standing Expiration Date: 03/23/2023 Order Specific Question: Select research study to bill: Answer: NONE - DO NOT USE [NO STUDY] AMB REFERRAL TO SLEEP MEDICINE Referral Priority: Routine Referral Type: Consultation Referred to Provider: Jsawinder Mcginnis MD Number of Visits Requested: 1 POCT URINALYSIS DIPSTICK AUTOMATED W/O SCOP Order Specific Question: Select research study to bill: Answer: NONE - DO NOT USE [NO STUDY] Medications Discontinued During This Encounter Medication Reason tolterodine 4 MG Cap SR 24HR cetirizine 10 MG tablet budesonide (Pulmicort Flexhaler) 180 MCG/ACT inhaler Reorder buPROPion (Wellbutrin XL) 300 MG tablet XL Reorder escitalopram 20 MG tablet Reorder fenofibrate 160 MG tablet Reorder folic acid 1 MG tablet Reorder pantoprazole (Protonix) [address] tablet DR Reorder traZODone 100 MG tablet Reorder cyanocobalamin 1000 MCG tablet Reorder Current Outpatient Medications Medication Sig Dispense Refill budesonide (Pulmicort Flexhaler) 180 MCG/ACT inhaler Inhale 1 puff 2 times daily. Rinse mouth with water after each dose 3 Each 0 buPROPion (Wellbutrin XL) 300 MG tablet XL Take 1 tablet by mouth every morning before breakfast. 90 tablet 0 cetirizine 10 MG tablet Take 1 tablet by mouth daily. OTC cyanocobalamin 1000 MCG tablet Take 1 tablet by mouth daily. Chew 1 tab q daily 90 tablet 0 escitalopram 20 MG tablet Take 1 tablet by mouth daily. 90 tablet 0 fenofibrate 160 MG tablet Take 1 tablet by mouth daily. 90 tablet 0 folic acid 1 MG tablet Take 1 tablet by mouth daily. 90 tablet 0 Mirabegron ER 25 MG tablet Take 25 mg by mouth daily. Given by Dr. Garner pantoprazole (Protonix) [address] tablet DR Take 1 tablet by mouth 2 times daily (take before meals). 180 tablet 0 traZODone 100 MG tablet Take 1 tablet by mouth at bedtime. 90 tablet 0 albuterol (VENTOLIN HFA) 108 (90 Base) MCG/ACT Aero Soln inhaler Inhale 2 puffs every 6 hours as needed for Wheezing. 1 Inhaler 0 carveDILOL (Coreg) 12.5 MG tablet Take 1 tablet by mouth 2 times daily with meals. 180 tablet 3 Clindamycin Phos-Benzoyl Perox 1.2-3.75 % Gel Apply 1 Application topically daily. Given by Dermatology Dr. Dejesus Evolocumab 140 MG/ML Solution Auto-injector injection Inject 1 mL under the skin every 14 days. Generic for Repatha and given by Dr. Calderon 1 mL 11 levoFLOXacin (Levaquin) 500 MG tablet Take 1 tablet by mouth every morning before breakfast for 7 days. 7 tablet 0 losartan (Cozaar) 50 MG tablet Take 1 tablet by mouth daily. 90 tablet 3 Misc. Devices Misc by Unknown route. Auto BIPAP max IPAP 14 min EPAP 4 PS 5 set up 02/06/21 DME [facility] NON-FORMULARY 3 caps BID of Balance of Nature triamterene-hydrochlorothiazide (Dyazide) 37.5-25 MG per capsule Take 1 capsule by mouth daily. 90 capsule 3 Xiidra 5 % Solution ophthalmic solution Place 2 drops in both eyes daily. Given by Dr. Warren at [facility] No current facility-administered medications for this visit. Counseling given: No Follow up appointment(s) have been discussed with the patient. The patient is given an After Visit Summary sheet that lists all of their medications with directions, their allergies, orders placed during this encounter, immunization dates, and follow- up instructions. Fernie Paredes DO [address] [address] This note is electronically signed in the electronic medical record. documented in this encounterPromedica [facility]04[facility]14[facility] History of Present illness Narrative* Hemalatha Puente - 02/04/2022 8:30 AM EDT Referred by: 62 year old female referred by Chief Complaint Patient presents with Lower Back - Pain, Follow-up Patient is here today for a follow up on USG left SI injection. Patient states it took about 5 daysfor the injection to kick in fully and start working even though she is still having some pain. Patient is having pain right now that is at about 3/10 but she feels she is getting about 60% relief from the injection. Location: lower back Quality: stabbing, dull, ache Duration: many years NSAIDs? Not currently Analgesics? Not currently Other pain modalities? Not currently Physical therapy? Yes previously Xrays? 12/15/2021 lumbar spine MRI? 12/18/2021 lumbar spine Patient activity (i.e. Job, sport, etc.): retired but tries to stay active with daily living Treatment performed or prescribed at last visit? USG left SI injection Response to treatment since last visit? Took about 5 days to fully take affect and now is experiencing 60% relief Current Outpatient Medications: albuterol (VENTOLIN HFA) 108 (90 Base) MCG/ACT Aero Soln inhaler, Inhale 2 puffs every 6 hours as needed for Wheezing., Disp: 1 Inhaler, Rfl: 0 budesonide (Pulmicort Flexhaler) 180 MCG/ACT inhaler, Inhale 1 puff 2 times daily. Rinse mouth withwater after each dose, Disp: 3 Each, Rfl: 0 buPROPion (Wellbutrin XL) 300 MG tablet XL, Take 1 tablet by mouth every morning before breakfast.,Disp: 90 tablet, Rfl: 0 carveDILOL (Coreg) 12.5 MG tablet, Take 1 tablet by mouth 2 times daily with meals., Disp: 180 tablet, Rfl: 3 cetirizine 10 MG tablet, Take 10 mg by mouth daily. OTC (Patient not taking: No sig reported), Disp: , Rfl: Clindamycin Phos-Benzoyl Perox 1.2-3.75 % Gel, Apply 1 Application topically daily. Given by Dermatology Dr. Dejesus, Disp: , Rfl: cyanocobalamin 1000 MCG tablet, Take 1 tablet by mouth daily. Chew 1 tab q daily, Disp: 90 tablet, Rfl: 0 escitalopram 20 MG tablet, Take 1 tablet by mouth daily., Disp: 90 tablet, Rfl: 0 Evolocumab 140 MG/ML Solution Auto-injector injection, Inject 1 mL under the skin every 14 days. Generic for Repatha and given by Dr. Calderon, Disp: 1 mL, Rfl: 11 fenofibrate 160 MG tablet, Take 1 tablet by mouth daily., Disp: 90 tablet, Rfl: 0 folic acid 1 MG tablet, Take 1 tablet by mouth daily., Disp: 90 tablet, Rfl: 0 losartan (Cozaar) 50 MG tablet, Take 1 tablet by mouth daily., Disp: 90 tablet, Rfl: 3 Misc. Devices Misc, by Unknown route. Auto BIPAP max IPAP 14 min EPAP 4 PS 5 set up 02/06/21 [facility], Disp: , Rfl: NON-FORMULARY, 3 caps BID of Balance of Nature, Disp: , Rfl: pantoprazole (Protonix) [address] tablet DR, Take 1 tablet by mouth 2 times daily (take before meals)., Disp: 180 tablet, Rfl: 0 tolterodine 4 MG Cap SR 24HR, Take 1 capsule by mouth daily., Disp: 30 capsule, Rfl: 11 traZODone 100 MG tablet, Take 1 tablet by mouth at bedtime., Disp: 90 tablet, Rfl: 0 triamterene-hydrochlorothiazide (Dyazide) 37.5-25 MG per capsule, Take 1 capsule by mouth daily., Disp: 90 capsule, Rfl: 3 Xiidra 5 % Solution ophthalmic solution, Place 2 drops in both eyes daily. Given by Dr. Warren at [facility], Disp: , Rfl: Family History Problem Relation Age of Onset Breast Cancer Maternal Aunt Ovarian Cancer Paternal Aunt Cancer Paternal Aunt brain Hypertension Mother Lipid Disorder Mother Depression Mother Dementia Father Lung Cancer Maternal Grandfather Cancer- Other Maternal Uncle melanoma Hypertension Son Lipid Disorder Daughter No known problems Daughter Autism Grandson Social History Tobacco Use Smoking status: Former Smoker Packs/day: 0.75 Years: 35.00 Pack years: 26.25 Types: Cigarettes Quit date: 04/23/2013 Years since quittin.7 Smokeless tobacco: Never Used Vaping Use Vaping Use: Never used Substance Use Topics Alcohol use: Yes Alcohol/week: 2.0 standard drinks Types: 2 Cans of beer per week Comment: Hx ETOH abuse,and now 2 beers weekly Drug use: Never Past Surgical History: Procedure Laterality Date EGD W/ DILATION BALLOON N/A 12/01/2021 Laterality: N/A; Surgeon: Indra Parrish DO; Location: [facility] SHOULDER ARTHROSCOPY Left 06/18/2021 REMOVAL CENTRAL VENOUS ACCESS DEVICE TUNNELED W/ PORT PUMP Left 09/13/2019 Laterality: Left; Surgeon: Eduardo Muñoz MD; [facility] ([facility]) EGD W/ DILATION BALLOON N/A 06/30/2018 Laterality: N/A; Surgeon: Indra Parrish DO; Location: [facility] EGD DIAGNOSTIC N/A 04/07/2018 Laterality: N/A; Surgeon: Wilner Leigh MD; Location: [facility] COLONOSCOPY DIAGNOSTIC N/A 04/07/2018 Laterality: N/A; Surgeon: Wilner Leigh MD; Location: [facility] ARTHROPLASTY KNEE TOTAL Right 04/2015 INSERTION PICC W/ PORT PUMP 2014 power port COLONOSCOPY DIAGNOSTIC 2006 SALPINGO-OOPHORECTOMY OPEN N/A 1983 APPENDECTOMY OPEN 1983 TONSILLECTOMY ADENOIDECTOMY 1967 EGD DIAGNOSTIC 10 months ago There were no vitals filed for this visit. Constitutional No fevers, chills or sweats, unintentional weight gain or weight loss, night pain, or night sweats except as per HPI. Cardiovascular No recent chest pain or palpitations. No claudication. No new or worsening lower extremity edema except as per HPI. Respiratory No new or worsening shortness of breath, dyspnea on exertion, orthopnea or paroxysmal nocturnal dyspnea except as per HPI. Gastrointestinal No recent heartburn or stomach upset, no history of ulcers except as per HPI. Musculoskeletal No joint pain, stiffness, or weakness except as per HPI. Endocrine No polyphagia, polydypsia, or polyuria. Hematologic No known or recent anemia, no excessive bleeding. Rheumatologic No history or currently active autoimmune or rheumatologic disease except as per HPI. Integumentary No new or relevant rashes or lesions except as per HPI. Neurologic No numbness, tingling, or weakness into her distal extremities except as per HPI. Constitutional Normal No acute distress. Well nourished. Well developed. Head/Face Normal Facial features - Normal. Eyebrows - Normal. Skull - Normal. Hair and scalp - Normal. Eyes Normal General - Right: Normal, Left: Normal. Lids/external - Right: Normal, Left: Normal. Conjunctiva - Right: Normal, Left: Normal. Ears Normal Inspection - Right: Normal, Left: Normal. Pinna - Right: Normal, Left: Normal. Nasopharynx Normal External nose - Normal. Nares - Right: Normal. Nasal Mucosa - Normal. Lips/teeth/gums - Normal. Buccal mucosa - Normal. Neck Exam Normal Inspection - Normal. Range of motion - Normal. Neck Exam Comments Supple. Respiratory Normal Inspection - Normal. Cough - Absent. Effort - Normal. Cardiovascular Normal Heart rate - Regular rate. Vascular Normal Pulses - Radial: Normal, Brachial: Normal, Dorsalis pedis: Normal, Posterior tibial: Normal. Capillary refill - Less than 2 seconds. Skin * Rash - Description: none. Extremity Normal No Edema. No Calf tenderness. Diabetic Foot Screen Normal Pulses - Dorsalis pedis: Normal, Posterior tibial: Normal. Neurological Normal Level of consciousness - Normal. Orientation - Normal. Memory - Normal. Psychiatric Normal No agitation. Appropriate mood and affect. Appropriate affect. Normal insight. Normal judgment. * Noeren Mcarthur - 02/04/2022 8:30 AM EDT Interval exam: Tender to left SI joint MRI lumbar spine reviewed from 12/18/2021 History obtained from patient. ASSESSMENT and PLAN: 1. Osteoarthritis of left sacroiliac joint 2. Pain of left sacroiliac joint 3. Lumbar spondylosis Sarah only got a few weeks of relief from her US guided injection. At this point we will see her back to do another US guided left SI joint injection for diagnostic purposes. Following that injection we will refer her to Dr. Sigala. Referrals: None Medications prescribed today: None Follow up plan: SPORTS: US guided left SI joint Severity of problem(s): Mild Risk of morbidity or complication from the condition and/or additional testing or treatment: Low * Garry Stephens MD - 02/04/2022 8:30 AM EDT Referred by: 62 year old female referred by Chief Complaint Patient presents with Lower Back - Pain, Follow-up Patient is here today for a follow up on USG left SI injection. Patient states it took about 5 daysfor the injection to kick in fully and start working even though she is still having some pain. Patient is having pain right now that is at about 3/10 but she feels she is getting about 60% relief from the injection. Location: lower back Quality: stabbing, dull, ache Duration: many years NSAIDs? Not currently Analgesics? Not currently Other pain modalities? Not currently Physical therapy? Yes previously Xrays? 12/15/2021 lumbar spine MRI? 12/18/2021 lumbar spine Patient activity (i.e. Job, sport, etc.): retired but tries to stay active with daily living Treatment performed or prescribed at last visit? USG left SI injection Response to treatment since last visit? Took about 5 days to fully take affect and now is experiencing 60% relief Current Outpatient Medications: albuterol (VENTOLIN HFA) 108 (90 Base) MCG/ACT Aero Soln inhaler, Inhale 2 puffs every 6 hours as needed for Wheezing., Disp: 1 Inhaler, Rfl: 0 budesonide (Pulmicort Flexhaler) 180 MCG/ACT inhaler, Inhale 1 puff 2 times daily. Rinse mouth withwater after each dose, Disp: 3 Each, Rfl: 0 buPROPion (Wellbutrin XL) 300 MG tablet XL, Take 1 tablet by mouth every morning before breakfast.,Disp: 90 tablet, Rfl: 0 carveDILOL (Coreg) 12.5 MG tablet, Take 1 tablet by mouth 2 times daily with meals., Disp: 180 tablet, Rfl: 3 cetirizine 10 MG tablet, Take 10 mg by mouth daily. OTC (Patient not taking: No sig reported), Disp: , Rfl: Clindamycin Phos-Benzoyl Perox 1.2-3.75 % Gel, Apply 1 Application topically daily. Given by Dermatology Dr. Dejesus, Disp: , Rfl: cyanocobalamin 1000 MCG tablet, Take 1 tablet by mouth daily. Chew 1 tab q daily, Disp: 90 tablet, Rfl: 0 escitalopram 20 MG tablet, Take 1 tablet by mouth daily., Disp: 90 tablet, Rfl: 0 Evolocumab 140 MG/ML Solution Auto-injector injection, Inject 1 mL under the skin every 14 days. Generic for Repatha and given by Dr. Calderon, Disp: 1 mL, Rfl: 11 fenofibrate 160 MG tablet, Take 1 tablet by mouth daily., Disp: 90 tablet, Rfl: 0 folic acid 1 MG tablet, Take 1 tablet by mouth daily., Disp: 90 tablet, Rfl: 0 losartan (Cozaar) 50 MG tablet, Take 1 tablet by mouth daily., Disp: 90 tablet, Rfl: 3 Misc. Devices Misc, by Unknown route. Auto BIPAP max IPAP 14 min EPAP 4 PS 5 set up 02/06/21 [facility], Disp: , Rfl: NON-FORMULARY, 3 caps BID of Balance of Nature, Disp: , Rfl: pantoprazole (Protonix) [address] tablet DR, Take 1 tablet by mouth 2 times daily (take before meals)., Disp: 180 tablet, Rfl: 0 tolterodine 4 MG Cap SR 24HR, Take 1 capsule by mouth daily., Disp: 30 capsule, Rfl: 11 traZODone 100 MG tablet, Take 1 tablet by mouth at bedtime., Disp: 90 tablet, Rfl: 0 triamterene-hydrochlorothiazide (Dyazide) 37.5-25 MG per capsule, Take 1 capsule by mouth daily., Disp: 90 capsule, Rfl: 3 Xiidra 5 % Solution ophthalmic solution, Place 2 drops in both eyes daily. Given by Dr. Warren at [facility], Disp: , Rfl: Family History Problem Relation Age of Onset Breast Cancer Maternal Aunt Ovarian Cancer Paternal Aunt Cancer Paternal Aunt brain Hypertension Mother Lipid Disorder Mother Depression Mother Dementia Father Lung Cancer Maternal Grandfather Cancer- Other Maternal Uncle melanoma Hypertension Son Lipid Disorder Daughter No known problems Daughter Autism Grandson Social History Tobacco Use Smoking status: Former Smoker Packs/day: 0.75 Years: 35.00 Pack years: 26.25 Types: Cigarettes Quit date: 04/23/2013 Years since quittin.7 Smokeless tobacco: Never Used Vaping Use Vaping Use: Never used Substance Use Topics Alcohol use: Yes Alcohol/week: 2.0 standard drinks Types: 2 Cans of beer per week Comment: Hx ETOH abuse,and now 2 beers weekly Drug use: Never Past Surgical History: Procedure Laterality Date EGD W/ DILATION BALLOON N/A 12/01/2021 Laterality: N/A; Surgeon: Indra Parrish DO; Location: [facility] SHOULDER ARTHROSCOPY Left 06/18/2021 REMOVAL CENTRAL VENOUS ACCESS DEVICE TUNNELED W/ PORT PUMP Left 09/13/2019 Laterality: Left; Surgeon: Eduardo Muñoz MD; Location: [facility] INTERVENTIONAL RADIOLOGY (VIR) EGD W/ DILATION BALLOON N/A 06/30/2018 Laterality: N/A; Surgeon: Indra Parrish DO; Location: [facility] EGD DIAGNOSTIC N/A 04/07/2018 Laterality: N/A; Surgeon: Wilner Leigh MD; Location: [facility] COLONOSCOPY DIAGNOSTIC N/A 04/07/2018 Laterality: N/A; Surgeon: Wilner Leigh MD; Location: [facility] ARTHROPLASTY KNEE TOTAL Right 04/2015 INSERTION PICC W/ PORT PUMP 2014 power port COLONOSCOPY DIAGNOSTIC 2006 SALPINGO-OOPHORECTOMY OPEN N/A 1983 APPENDECTOMY OPEN 1983 TONSILLECTOMY ADENOIDECTOMY 1967 EGD DIAGNOSTIC 10 months ago There were no vitals filed for this visit. Constitutional No fevers, chills or sweats, unintentional weight gain or weight loss, night pain, or night sweats except as per HPI. Cardiovascular No recent chest pain or palpitations. No claudication. No new or worsening lower extremity edema except as per HPI. Respiratory No new or worsening shortness of breath, dyspnea on exertion, orthopnea or paroxysmal nocturnal dyspnea except as per HPI. Gastrointestinal No recent heartburn or stomach upset, no history of ulcers except as per HPI. Musculoskeletal No joint pain, stiffness, or weakness except as per HPI. Endocrine No polyphagia, polydypsia, or polyuria. Hematologic No known or recent anemia, no excessive bleeding. Rheumatologic No history or currently active autoimmune or rheumatologic disease except as per HPI. Integumentary No new or relevant rashes or lesions except as per HPI. Neurologic No numbness, tingling, or weakness into her distal extremities except as per HPI. Constitutional Normal No acute distress. Well nourished. Well developed. Head/Face Normal Facial features - Normal. Eyebrows - Normal. Skull - Normal. Hair and scalp - Normal. Eyes Normal General - Right: Normal, Left: Normal. Lids/external - Right: Normal, Left: Normal. Conjunctiva - Right: Normal, Left: Normal. Ears Normal Inspection - Right: Normal, Left: Normal. Pinna - Right: Normal, Left: Normal. Nasopharynx Normal External nose - Normal. Nares - Right: Normal. Nasal Mucosa - Normal. Lips/teeth/gums - Normal. Buccal mucosa - Normal. Neck Exam Normal Inspection - Normal. Range of motion - Normal. Neck Exam Comments Supple. Respiratory Normal Inspection - Normal. Cough - Absent. Effort - Normal. Cardiovascular Normal Heart rate - Regular rate. Vascular Normal Pulses - Radial: Normal, Brachial: Normal, Dorsalis pedis: Normal, Posterior tibial: Normal. Capillary refill - Less than 2 seconds. Skin * Rash - Description: none. Extremity Normal No Edema. No Calf tenderness. Diabetic Foot Screen Normal Pulses - Dorsalis pedis: Normal, Posterior tibial: Normal. Neurological Normal Level of consciousness - Normal. Orientation - Normal. Memory - Normal. Psychiatric Normal No agitation. Appropriate mood and affect. Appropriate affect. Normal insight. Normal judgment. Interval exam: Tender to left SI joint MRI lumbar spine reviewed from 12/18/2021 History obtained from patient. ASSESSMENT and PLAN: 1. Osteoarthritis of left sacroiliac joint 2. Pain of left sacroiliac joint 3. Lumbar spondylosis Sarah only got a few weeks of relief from her US guided injection. At this point we will see her back to do another US guided left SI joint injection for diagnostic purposes. Following that injection we will refer her to Dr. Sigala. Referrals: None Medications prescribed today: None Follow up plan: SPORTS: US guided left SI joint Severity of problem(s): Mild Risk of morbidity or complication from the condition and/or additional testing or treatment: Low I have reviewed, edited and added to the above note and agree with those findings. Additions if any: Garry Stephens MD, CAQSM [facility] [employer] - [facility] documented in this encounter[facility] History of Present illness Narrative* Dolly Islas - 01/27/2022 1:30 PM EDT Nurse Note: Review of Systems Constitutional: Negative. HENT: Negative. Eyes: Negative. Respiratory: Negative. Cardiovascular: Negative. Gastrointestinal: Negative. Endocrine: Negative. Genitourinary: Positive for dysuria, frequency and urgency. Nocturia Musculoskeletal: Negative. Allergic/Immunologic: Negative. Neurological: Negative. Hematological: Negative. Psychiatric/Behavioral: Negative. Nursing Assessment: Physical Exam NEW PATIENT FOR INCONTINENCE Nocturia 2x PVR: 0 Lab Results Component Value Date APPEARANCE CLEAR 01/27/2022 COLOR YELLOW 01/27/2022 SPECIFICGRAV 1.015 01/27/2022 BLOOD NEG 01/27/2022 PH 7.0 01/27/2022 PROTEIN NEG 01/27/2022 UROBILINOGEN 0.2 01/27/2022 NITRITE NEG 01/27/2022 LEUKOCYTE NEG 01/27/2022 * Washington Garner MD - 01/27/2022 1:30 PM EDT HISTORY OF PRESENT ILLNESS 62 y.o. female Seen today as a new patient for management of incontinence. Patient reports nocturia, frequency, both stress and urge incontinence not requiring pads. She has been doing pelvic exercise for quite some time with little benefit DATA REVIEWED: Hemoglobin A1c, BMP, renal ultrasound showing renal cyst. ASSESSMENT AND PLAN: 1. Mixed incontinence. Discuss referral to pelvic for therapy. She does not want to do that. Detrolprescribed. Appropriate use and side effects reviewed. Follow up in 6 weeks to assess benefit Nurse Note: Review of Systems Constitutional: Negative. HENT: Negative. Eyes: Negative. Respiratory: Negative. Cardiovascular: Negative. Gastrointestinal: Negative. Endocrine: Negative. Genitourinary: Positive for dysuria, frequency and urgency. Nocturia Musculoskeletal: Negative. Allergic/Immunologic: Negative. Neurological: Negative. Hematological: Negative. Psychiatric/Behavioral: Negative. Nursing Assessment: Physical Exam NEW PATIENT FOR INCONTINENCE Nocturia 2x PVR: 0 Lab Results Component Value Date APPEARANCE CLEAR 01/27/2022 COLOR YELLOW 01/27/2022 SPECIFICGRAV 1.015 01/27/2022 BLOOD NEG 01/27/2022 PH 7.0 01/27/2022 PROTEIN NEG 01/27/2022 UROBILINOGEN 0.2 01/27/2022 NITRITE NEG 01/27/2022 LEUKOCYTE NEG 01/27/2022 History Allergies Allergen Reactions Lisinopril Cough Nsaids Has CKD-2 has CLL (chronic lymphocytic leukemia); PVC's (premature ventricular contractions); Essential hypertension; Gastroesophageal reflux disease without esophagitis; Chronic sinusitis; Non-seasonal allergic rhinitis; Former smoker- Quit 2011; Elevated LFTs; Moderate persistent asthma without complication; Hypertriglyceridemia; Hiatal hernia; S/P unilateral salpingo-oophorectomy; History of anemia; PERCY on CPAP-BiPAP Set at 14/4 CM/H2O; S/P total knee arthroplasty, right; Primary osteoarthritis of bothknees; Insomnia; Vitamin D deficiency; Fatty liver; Internal and external hemorrhoids without complication; Renal cyst, right; Duodenal diverticulum; Paroxysmal atrial fibrillation; Well adult exam; Hepatomegaly; Chronic obstructive pulmonary disease; Esophagitis, Clyo grade A; Obesity (BMI 30.0-34.9); Idiopathic chronic gout without tophus; Hyperlipidemia LDL goal <70; Fatty food intolerance; Seborrheic keratosis, inflamed-Left thigh-S/P Excision; Low HDL (under 40); Encounter for screening mammogram for breast cancer; Anxiety and depression; Allergic conjunctivitis of both eyes; Combined forms of age-related cataract, bilateral; Bilateral dry eyes; Irregular astigmatism of righteye; Regular astigmatism of left eye; Pinguecula of both eyes; Blepharitis of upper eyelids of botheyes; [id number] on 09-30-2020; Fatigue; Urinary frequency; ASCUS of cervix with negative high risk HPV; Macrocytosis; Folate deficiency; Unspecified amblyopia, right eye; Hypermetropia of lefteye; Myopia of right eye; Presbyopia; History of cataract extraction; Pseudophakia; Spondylosis of lumbar region without myelopathy or radiculopathy; Other idiopathic scoliosis, lumbar region; Chronic midline low back pain without sciatica; History of ETOH abuse; Esophageal stenosis; Chronic gastritis without bleeding; Controlled type 2 diabetes mellitus with chronic kidney disease, without long-term current use of insulin; CKD (chronic kidney disease) stage 2, GFR 60-89 ml/min; Mixed stress and urge incontinence; Spinal stenosis of lumbar region without neurogenic claudication; Primary osteoarthritis of both hips-Mild; Osteopenia determined by x-ray; and B12 deficiency on their problem list. Current Outpatient Medications Medication Sig Dispense Refill albuterol (VENTOLIN HFA) 108 (90 Base) MCG/ACT Aero Soln inhaler Inhale 2 puffs every 6 hours as needed for Wheezing. 1 Inhaler 0 budesonide (Pulmicort Flexhaler) 180 MCG/ACT inhaler Inhale 1 puff 2 times daily. Rinse mouth with water after each dose 3 Each 0 buPROPion (Wellbutrin XL) 300 MG tablet XL Take 1 tablet by mouth every morning before breakfast. 90 tablet 0 carveDILOL (Coreg) 12.5 MG tablet Take 1 tablet by mouth 2 times daily with meals. 180 tablet 3 cetirizine 10 MG tablet Take 10 mg by mouth daily. OTC Clindamycin Phos-Benzoyl Perox 1.2-3.75 % Gel Apply 1 Application topically daily. Given by Dermatology Dr. Dejesus cyanocobalamin 1000 MCG tablet Take 1 tablet by mouth daily. Chew 1 tab q daily 90 tablet 0 escitalopram 20 MG tablet Take 1 tablet by mouth daily. 90 tablet 0 Evolocumab 140 MG/ML Solution Auto-injector injection Inject 1 mL under the skin every 14 days. Generic for Repatha and given by Dr. Calderon 1 mL 11 fenofibrate 160 MG tablet Take 1 tablet by mouth daily. 90 tablet 0 folic acid 1 MG tablet Take 1 tablet by mouth daily. 90 tablet 0 losartan (Cozaar) 50 MG tablet Take 1 tablet by mouth daily. 90 tablet 3 Misc. Devices Misc by Unknown route. Auto BIPAP max IPAP 14 min EPAP 4 PS 5 set up 02/06/21 [facility] NON-FORMULARY 3 caps BID of Balance of Nature pantoprazole (Protonix) [address] tablet DR Take 1 tablet by mouth 2 times daily (take before meals). 180 tablet 0 traZODone 100 MG tablet Take 1 tablet by mouth at bedtime. 90 tablet 0 triamterene-hydrochlorothiazide (Dyazide) 37.5-25 MG per capsule Take 1 capsule by mouth daily. 90 capsule 3 Xiidra 5 % Solution ophthalmic solution Place 2 drops in both eyes daily. Given by Dr. Warren at [facility] No current facility-administered medications for this visit. family history includes Autism in her grandson; Breast Cancer in her maternal aunt; Cancer in her paternal aunt; Cancer- Other in her maternal uncle; Dementia in her father; Depression in her mother;Hypertension in her mother and son; Lipid Disorder in her daughter and mother; Lung Cancer in her maternal grandfather; No known problems in her daughter; Ovarian Cancer in her paternal aunt. Past Medical History: Diagnosis Date Non-Hodgkin lymphoma 2011 CLL (chronic lymphocytic leukemia) 2011 A-fib Anemia Arrhythmia ASCUS of cervix with negative high risk HPV Asthma CKD (chronic kidney disease) stage 2, GFR 60-89 ml/min COPD (chronic obstructive pulmonary disease) [id number] on 09-30-2020 Depression Diabetes mellitus Diffuse non-Hodgkin's lymphoma chemotherapy ETOH abuse Folate deficiency GERD (gastroesophageal reflux disease) Gout Hiatal hernia Hyperglycemia Hyperlipidemia Hypertension PERCY (obstructive sleep apnea) PVC's (premature ventricular contractions) Past Surgical History: Procedure Laterality Date EGD W/ DILATION BALLOON N/A 12/01/2021 Laterality: N/A; Surgeon: Indra Parrish DO; Location: [facility] SHOULDER ARTHROSCOPY Left 06/18/2021 REMOVAL CENTRAL VENOUS ACCESS DEVICE TUNNELED W/ PORT PUMP Left 09/13/2019 Laterality: Left; Surgeon: Eduardo Muñoz MD; [facility]) EGD W/ DILATION BALLOON N/A 06/30/2018 Laterality: N/A; Surgeon: Indra Parrish DO; Location: [facility] EGD DIAGNOSTIC N/A 04/07/2018 Laterality: N/A; Surgeon: Wilner Leigh MD; Location: [facility] COLONOSCOPY DIAGNOSTIC N/A 04/07/2018 Laterality: N/A; Surgeon: Wilner Leigh MD; Location: [facility] ARTHROPLASTY KNEE TOTAL Right 04/2015 INSERTION PICC W/ PORT PUMP 2014 power port COLONOSCOPY DIAGNOSTIC 2006 SALPINGO-OOPHORECTOMY OPEN N/A 1983 APPENDECTOMY OPEN 1983 TONSILLECTOMY ADENOIDECTOMY 1968 EGD DIAGNOSTIC 10 months ago Social History Tobacco Use Smoking Status Former Smoker Packs/day: 0.75 Years: 35.00 Pack years: 26.25 Types: Cigarettes Quit date: 04/23/2013 Years since quittin.7 Smokeless Tobacco Never Used Social History Substance and Sexual Activity Alcohol Use Yes Alcohol/week: 2.0 standard drinks Types: 2 Cans of beer per week Comment: Hx ETOH abuse,and now 2 beers weekly Physical Examination: Vital Signs: Resp 18 Ht 1.651 m (5' 5) Wt 93 kg (205 lb) SpO2 98% BMI 34.11 kg/m Smoking Status Former Smoker Constitutional: Oriented to person, place, and time. Appears well developed and well nourished. Eyes: conjunctiva/corneas clear, normal vision Ears/Nose/Mouth Eyes -EOMI. Ears - External normal ear. Hearing normal. Mouth - Lips normal color. Head/Neck: Face symmetrical, trachea midline, Head - Normocephalic. symmetrical. Normal ROM, neck supple. Pulmonary/chest: Normal respiratory effort, non-labored breathing. Abdominal/GI: Soft, non-tender, no organomegaly. Bowel sounds normal. Cardiovascular Normal rate and regular rhythm. No Murmurs or Rubs. Radial Pulses Normal. Circulation Normal. Neurologic: Alert and oriented x3. No focal neurological deficits noted. Extremities: No clubbing, cyanosis, or edema noted, no calf tenderness bilaterally. Skin: Warm and dry.Normal turgor, well-hydrated, no rashes noted. Psych: Normal mood and affect. Behavior is normal. documented in this [facility] [place]04-06-2022 Miscellaneous Notes* Addendum Note - Dolly Islas - 01/27/2022 1:30 PM EDTAddended by: DOLLY ISLAS on: 01/27/2022 03:16 PM Modules accepted: Orders documented in this [facility] [place]04-06-2022 Note* Addendum Note - Dolly Islas - 01/27/2022 1:30 PM EDTAddended by: DOLLY ISLAS on: 01/27/2022 03:16 PM Modules accepted: Orders [facility]04-23-2021 Emergency department Note* Asad Sagastume, - 02/13/2021 3:43 PM EDT ED PROVIDER NOTE [facility] EMERGENCY DEPARTMENT NAME: Elena Galeano AGE: 61 y.o. : 1960 VISIT DATE: 02/13/2021 CSN: [id number] PCP: No primary care provider on file. Chief Complaint Patient presents with Shoulder Pain Patient is a 61-year-old female with past medical history of depression, hyperlipidemia and hypertension who presents today with left shoulder pain. Patient states for last 1 month she has had pain in her left shoulder with difficulty with certain range of motion. Patient denies any history of traumatic injury. Patient states remotely she had shoulder pain and had a steroid injection many years prior. Patient denies any associated neck pain, chest pain, pleurisy, history of DVT/PE, shortness ofbreath, abdominal pain, back pain, lightheadedness, dizziness or syncope. Patient not take anythingfor pain. Past Medical History: Diagnosis Date Depression Hyperlipidemia Hypertension Past Surgical History: Procedure Laterality Date JOINT REPLACEMENT History reviewed. No pertinent family history. Social History Socioeconomic History Marital status: Not on file Spouse name: Not on file Number of children: Not on file Years of education: Not on file Highest education level: Not on file Occupational History Not on file Social Needs Financial resource strain: Not on file Food insecurity Worry: Not on file Inability: Not on file Transportation needs Medical: Not on file Non-medical: Not on file Tobacco Use Smoking status: Never Smoker Smokeless tobacco: Never Used Substance and Sexual Activity Alcohol use: Yes Comment: rarely Drug use: Not on file Sexual activity: Not on file Lifestyle Physical activity Days per week: Not on file Minutes per session: Not on file Stress: Not on file Relationships Social connections Talks on phone: Not on file Gets together: Not on file Attends orthodox service: Not on file Active member of club or organization: Not on file Attends meetings of clubs or organizations: Not on file Relationship status: Not on file Other Topics Concern Not on file Social History Narrative Not on file Previous Medications Medication Sig buPROPion (WELLBUTRIN XL) 300 MG 24 hr tablet Take 300 mg by mouth every morning before breakfast . escitalopram oxalate (LEXAPRO) 20 MG tablet Take 20 mg by mouth daily . losartan (COZAAR) 25 MG tablet Take 25 mg by mouth daily . carvediloL (COREG) 12.5 MG tablet Take 12.5 mg by mouth 2 (two) times a day with meals . Praluent Pen 75 mg/mL injection Inject 1 mL under the skin every 21 days . triamterene-hydrochlorothiazide (DYAZIDE) 37.5-25 mg per capsule Take 1 capsule by mouth daily . No Known Allergies Review of Systems Constitutional: Negative for chills and fever. Eyes: Negative for pain. Respiratory: Negative for cough, chest tightness and shortness of breath. Cardiovascular: Negative for chest pain and palpitations. Gastrointestinal: Negative for abdominal pain, nausea and vomiting. Genitourinary: Negative for flank pain. Musculoskeletal: Negative for arthralgias and myalgias. Shoulder pain Skin: Negative for rash. Neurological: Negative for dizziness, syncope, light-headedness and headaches. Patient Vitals for the past 24 hrs: BP Temp Temp src Pulse Resp SpO2 Height Weight 02/13/21 1537 (!) 170/91 97.3 F (36.3 C) Temporal 82 18 97 % 5' 5 93.9 kg (207 lb) Physical Exam Constitutional: Appearance: Normal appearance. HENT: Head: Normocephalic. Eyes: Pupils: Pupils are equal, round, and reactive to light. Cardiovascular: Rate and Rhythm: Normal rate and regular rhythm. Pulses: Normal pulses. Heart sounds: Normal heart sounds. Pulmonary: Effort: Pulmonary effort is normal. Breath sounds: Normal breath sounds. Musculoskeletal: Comments: Left shoulder has decreased active and passive range of motion in all jiménez. Anterior and posterior tenderness to palpation of left shoulder with no evidence of gross deformity dislocation. Equal sensation and motor function of the bilateral median, radial, axillary and ulnar nerve. Skin: General: Skin is warm. Capillary Refill: Capillary refill takes less than 2 seconds. Neurological: General: No focal deficit present. Mental Status: She is alert. Psychiatric: Mood and Affect: Mood normal. Laboratory & Radiographic Imaging (if done): No results found for this visit on 02/13/21. No orders to display Procedures MDM Number of Diagnoses or Management Options Sprain of left shoulder, unspecified shoulder sprain type, initial encounter Diagnosis management comments: Patient was seen and evaluated for shoulder pain. Patient had x-raysof the left shoulder, which not demonstrate any evidence of traumatic injury. Patient will be givenPrednisone and Toradol for discomfort. Patient will be referred to orthopedic for an MRI to furtherevaluate suspected ligamentous injury. Patient agrees with assessment and plan. Patient discharged in stable condition. . Clinical Impression: 1. Sprain of left shoulder, unspecified shoulder sprain type, initial encounter ED Disposition ED Disposition Condition Comment Discharge Stable Elena Galeano discharged to home/self care in stable condition. Follow-up Information Follow-up information has not been specified. Contact information for after-discharge care Follow-up information has not been specified. Asad Sgaastume DO 02/13/21 1552 * Silvano Armas RN - 02/13/2021 3:31 PM EDT C/o left upper back pain x 1 month with pain going to left arm. Unknown injury, has been seeing a Chiropractor but not feeling better. documented in this [id number] Hospital Discharge instructions * Instructions* Asad Sagastume DO - 02/13/2021 Please use Toradol as needed for discomfort. Please take steroids as directed. Please follow-up with orthopedics to obtain an MRI. * Attachments The following attachments cannot be sent through Care Everywhere. * Shoulder Pain ([place]) * Shoulder Sprain ([place]) documented in this [id number] History of Past illness Narrative* Problem Noted Date Resolved Date Osteoarthrosis, unspecified whether generalized or localized, lower leg 05/19/2015 05/19/2015 Hyperlipidemia 10/23/2013 02/04/2017 Lymphocytosis 12/16/2011 09/01/2012 Splenomegaly 12/16/2011 09/01/2012 documented as of this encounter (statuses as of 09/28/2022) [facility]07-27-2015 History of Past illness Narrative* Problem Noted Date Resolved Date Osteoarthrosis, unspecified whether generalized or localized, lower leg 05/19/2015 05/19/2015 Lymphocytosis 12/16/2011 09/01/2012 Splenomegaly 12/16/2011 09/01/2012 documented as of this encounter (statuses as of 11/01/2022) [facility] Diagnosis Sprain of left shoulder, unspecified shoulder sprain type, initial encounter- Primary documented in this encounter [facility] note* Diagnosis Urge incontinence- Primary [facility] Diagnosis Osteoarthritis of left sacroiliac joint- Primary Pain of left sacroiliac joint Disorders of sacrum Lumbar spondylosis Lumbosacral spondylosis without myelopathy [facility] Diagnosis Controlled type 2 diabetes mellitus with chronic kidney disease, without long- term current use of insulin, unspecified CKD stage- Primary Hyperlipidemia LDL goal <70 Other and unspecified hyperlipidemia Idiopathic chronic gout without tophus, unspecified site B12 deficiency Other B-complex deficiencies Chronic gastritis without bleeding, unspecified gastritis type Folate deficiency Other B-complex deficiencies Gastroesophageal reflux disease without esophagitis Esophageal reflux Acute cystitis without hematuria Acute cystitis PERCY on CPAP-BiPAP Set at 14/4 CM/H2O Obstructive sleep apnea (adult) (pediatric) Moderate persistent asthma without complication Unspecified asthma Chronic obstructive pulmonary disease, unspecified COPD type PVC's (premature ventricular contractions) Other premature beats Anemia, unspecified type Non-seasonal allergic rhinitis, unspecified trigger Paroxysmal atrial fibrillation Atrial fibrillation Internal and external hemorrhoids without complication Internal hemorrhoids without mention of complication Essential hypertension Unspecified essential hypertension Vitamin D deficiency Unspecified vitamin D deficiency Hepatomegaly Fatty liver Other chronic nonalcoholic liver disease Duodenal diverticulum Diverticulosis of small intestine (without mention of hemorrhage) Esophagitis, Clyo grade A Esophageal stenosis Stricture and stenosis of esophagus Hypertriglyceridemia Pure hyperglyceridemia Chronic midline low back pain without sciatica Allergic conjunctivitis of both eyes Other chronic allergic conjunctivitis Blepharitis of upper eyelids of both eyes, unspecified type Combined forms of age-related cataract, bilateral Hypermetropia of left eye Hypermetropia Pinguecula of both eyes Pinguecula Pseudophakia Lens replaced by other means Unspecified amblyopia, right eye Regular astigmatism of left eye Regular astigmatism Spondylosis of lumbar region without myelopathy or radiculopathy Lumbosacral spondylosis without myelopathy Spinal stenosis of lumbar region without neurogenic claudication Spinal stenosis, lumbar region, without neurogenic claudication Primary osteoarthritis of both knees Primary localized osteoarthrosis, lower leg Primary osteoarthritis of both hips-Mild Primary localized osteoarthrosis, pelvic region and thigh Hiatal hernia Diaphragmatic hernia without mention of obstruction or gangrene Other idiopathic scoliosis, lumbar region CKD (chronic kidney disease) stage 2, GFR 60-89 ml/min Chronic kidney disease, Stage II (mild) Mixed stress and urge incontinence Renal cyst, right Unspecified congenital cystic kidney disease [id number] on 09-30-2020 CLL (chronic lymphocytic leukemia) Chronic lymphoid leukemia, without mention of having achieved remission Macrocytosis Other specified diseases of blood and blood-forming organs Urinary frequency Anxiety and depression Dysthymic disorder S/P total knee arthroplasty, right S/P unilateral salpingo-oophorectomy Acquired absence of organ, genital organs Presbyopia Osteopenia determined by x-ray Obesity (BMI 30.0-34.9) Obesity, unspecified Myopia of right eye Myopia Low HDL (under 40) Lipoprotein deficiencies Irregular astigmatism of right eye Irregular astigmatism Insomnia, unspecified type History of ETOH abuse Nondependent alcohol abuse, in remission Former smoker-Quit 2011 Personal history of tobacco use, presenting hazards to health Fatty food intolerance Other specified intestinal malabsorption Fatigue, unspecified type Elevated LFTs Other abnormal blood chemistry Bilateral dry eyes Tear film insufficiency, unspecified ASCUS of cervix with negative high risk HPV HNP (herniated nucleus pulposus), lumbar Displacement of lumbar intervertebral disc without myelopathy [facility] Diagnosis Urinary tract infection without hematuria, site unspecified- Primary Urge incontinence Voiding dysfunction Unspecified disorder of urethra and urinary tract [facility]* Diagnosis 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 disease, without long-term current use of insulin- Primary Hyperlipidemia LDL goal <70 Other and unspecified hyperlipidemia Hypertriglyceridemia Pure hyperglyceridemia Idiopathic chronic gout without tophus, unspecified site B12 deficiency Other B-complex deficiencies Fatty liver Other chronic nonalcoholic liver disease Folate deficiency Other B-complex deficiencies Gastroesophageal reflux disease without esophagitis Esophageal reflux Hepatomegaly PERCY on CPAP-BiPAP Set at 14/4 CM/H2O Obstructive sleep apnea (adult) (pediatric) Vitamin D deficiency Unspecified vitamin D deficiency Chronic midline low back pain without sciatica Essential hypertension Unspecified essential hypertension Paroxysmal atrial fibrillation Atrial fibrillation CLL (chronic lymphocytic leukemia) Chronic lymphoid leukemia, without mention of having achieved remission PVC's (premature ventricular contractions) Other premature beats Internal and external hemorrhoids without complication Internal hemorrhoids without mention of complication Anemia, unspecified type CKD (chronic kidney disease) stage 2, GFR 60-89 ml/min Chronic kidney disease, Stage II (mild) Chronic obstructive pulmonary disease, unspecified COPD type Non-seasonal allergic rhinitis, unspecified trigger Moderate persistent asthma without complication Unspecified asthma Chronic sinusitis, unspecified location Esophagitis, Clyo grade A Esophageal stenosis Stricture and stenosis of esophagus Duodenal diverticulum Diverticulosis of small intestine (without mention of hemorrhage) Chronic gastritis without bleeding, unspecified gastritis type Combined forms of age-related cataract, bilateral Unspecified amblyopia, right eye Regular astigmatism of left eye Regular astigmatism Pseudophakia Lens replaced by other means Hypermetropia of left eye Hypermetropia Pinguecula of both eyes Pinguecula Spondylosis of lumbar region without myelopathy or radiculopathy Lumbosacral spondylosis without myelopathy Spinal stenosis of lumbar region without neurogenic claudication Spinal stenosis, lumbar region, without neurogenic claudication Primary osteoarthritis of both knees Primary localized osteoarthrosis, lower leg Primary osteoarthritis of both hips-Mild Primary localized osteoarthrosis, pelvic region and thigh Other idiopathic scoliosis, lumbar region HNP (herniated nucleus pulposus), lumbar-Multi level Displacement of lumbar intervertebral disc without myelopathy Hiatal hernia Diaphragmatic hernia without mention of obstruction or gangrene Renal cyst, right Unspecified congenital cystic kidney disease Mixed stress and urge incontinence Seborrheic keratosis, inflamed-Left thigh-S/P Excision Inflamed seborrheic keratosis Macrocytosis Other specified diseases of blood and blood-forming organs Anxiety and depression Dysthymic disorder Urinary frequency Presbyopia Osteopenia determined by x-ray Obesity (BMI 30.0-34.9) Obesity, unspecified S/P total knee arthroplasty, right S/P unilateral salpingo-oophorectomy Acquired absence of organ, genital organs Low HDL (under 40) Lipoprotein deficiencies Myopia of right eye Myopia Irregular astigmatism of right eye Irregular astigmatism Insomnia, unspecified type History of ETOH abuse Nondependent alcohol abuse, in remission History of cataract extraction, unspecified laterality Fatty food intolerance Other specified intestinal malabsorption Fatigue, unspecified type Elevated LFTs Other abnormal blood chemistry Bilateral dry eyes Tear film insufficiency, unspecified ASCUS of cervix with negative high risk HPV Spondylosis of cervical region without myelopathy or radiculopathy Cervical spondylosis without myelopathy Pulmonary emphysema, unspecified emphysema type [facility]* Diagnosis Elective surgery- Primary Unspecified elective surgery for purposes other than remedying health states [facility]* Diagnosis Dysuria- Primary Detrusor instability of bladder Other functional disorder of bladder Urinary frequency Urethral hypermobility Functional urinary incontinence [facility]* Diagnosis Mixed stress and urge urinary incontinence- Primary Mixed incontinence urge and stress (male)(female) Midline cystocele Cystocele, midline Urethral hypermobility Pelvic pain Unspecified symptom associated with female genital organs History of atrial fibrillation Personal history of other diseases of circulatory system [facility]* Diagnosis Mixed stress and urge urinary incontinence- Primary Mixed incontinence urge and stress (male)(female) Midline cystocele Cystocele, midline Urethral hypermobility Pelvic pain Unspecified symptom associated with female genital organs History of atrial fibrillation Personal history of other diseases of circulatory system Mixed stress and urge urinary incontinence Mixed incontinence urge and stress (male)(female) Midline cystocele Cystocele, midline Urethral hypermobility [facility]* Diagnosis 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 disease, without long-term current use of insulin- Primary Hyperlipidemia LDL goal <70 Other and unspecified hyperlipidemia Hypertriglyceridemia Pure hyperglyceridemia Idiopathic chronic gout without tophus, unspecified site B12 deficiency Other B-complex deficiencies Fatty liver Other chronic nonalcoholic liver disease Chronic gastritis without bleeding, unspecified gastritis type Folate deficiency Other B-complex deficiencies Gastroesophageal reflux disease without esophagitis Esophageal reflux Duodenal diverticulum Diverticulosis of small intestine (without mention of hemorrhage) Esophageal stenosis Stricture and stenosis of esophagus Esophagitis, Clyo grade A Anemia, unspecified type Hepatomegaly Unspecified amblyopia, right eye Regular astigmatism of left eye Regular astigmatism Vitamin D deficiency Unspecified vitamin D deficiency Paroxysmal atrial fibrillation Atrial fibrillation Essential hypertension Unspecified essential hypertension Internal and external hemorrhoids without complication Internal hemorrhoids without mention of complication PVC's (premature ventricular contractions) Other premature beats Chronic obstructive pulmonary disease, unspecified COPD type Chronic sinusitis, unspecified location Moderate persistent asthma without complication Unspecified asthma Non-seasonal allergic rhinitis, unspecified trigger PERCY on CPAP-BiPAP Set at 14/4 CM/H2O Obstructive sleep apnea (adult) (pediatric) Pulmonary emphysema, unspecified emphysema type Spondylosis of cervical region without myelopathy or radiculopathy Cervical spondylosis without myelopathy Spinal stenosis of lumbar region without neurogenic claudication Spinal stenosis, lumbar region, without neurogenic claudication Spondylosis of lumbar region without myelopathy or radiculopathy Lumbosacral spondylosis without myelopathy Allergic conjunctivitis of both eyes Other chronic allergic conjunctivitis Chronic midline low back pain without sciatica Hypermetropia of left eye Hypermetropia Pinguecula of both eyes Pinguecula Combined forms of age-related cataract, bilateral Blepharitis of upper eyelids of both eyes, unspecified type Hiatal hernia Diaphragmatic hernia without mention of obstruction or gangrene HNP (herniated nucleus pulposus), lumbar-Multi level Displacement of lumbar intervertebral disc without myelopathy Other idiopathic scoliosis, lumbar region Primary osteoarthritis of both hips-Mild Primary localized osteoarthrosis, pelvic region and thigh Primary osteoarthritis of both knees Primary localized osteoarthrosis, lower leg CKD (chronic kidney disease) stage 2, GFR 60-89 ml/min Chronic kidney disease, Stage II (mild) Mixed stress and urge incontinence Renal cyst, right Unspecified congenital cystic kidney disease [id number] on 09-30-2020 Seborrheic keratosis, inflamed-Left thigh-S/P Excision Inflamed seborrheic keratosis CLL (chronic lymphocytic leukemia) Chronic lymphoid leukemia, without mention of having achieved remission Macrocytosis Other specified diseases of blood and blood-forming organs Anxiety and depression Dysthymic disorder Pseudophakia Lens replaced by other means Urinary frequency Osteopenia determined by x-ray Bradycardia Other specified cardiac dysrhythmias Obesity (BMI 30.0-34.9) Obesity, unspecified Myopia of right eye Myopia Low HDL (under 40) Lipoprotein deficiencies Irregular astigmatism of right eye Irregular astigmatism Insomnia, unspecified type History of ETOH abuse Nondependent alcohol abuse, in remission History of cataract extraction, unspecified laterality History of anemia Personal history of diseases of blood and blood-forming organs S/P unilateral salpingo-oophorectomy Acquired absence of organ, genital organs S/P total knee arthroplasty, right Presbyopia Elevated LFTs Other abnormal blood chemistry Fatty food intolerance Other specified intestinal malabsorption Fatigue, unspecified type Former smoker-Quit 2011 Personal history of tobacco use, presenting hazards to health Bilateral dry eyes Tear film insufficiency, unspecified ASCUS of cervix with negative high risk HPV Family history of Alzheimer's disease Family history of other condition Mixed stress and urge urinary incontinence Mixed incontinence urge and stress (male)(female) Midline cystocele Cystocele, midline Urethral hypermobility [facility]* Diagnosis PERCY (obstructive sleep apnea)- Primary Obstructive sleep apnea (adult) (pediatric) [facility]* Diagnosis Postoperative examination- Primary Follow-up examination, following unspecified surgery [facility] Diagnosis CLL (chronic lymphocytic leukemia)- Primary Chronic lymphoid leukemia, without mention of having achieved remission Left knee pain, unspecified chronicity- Primary [facility] Diagnosis Sacroiliitis Sacroiliitis, not elsewhere classified [facility] Diagnosis CLL (chronic lymphocytic leukemia) Chronic lymphoid leukemia, without mention of having achieved remission [facility] Diagnosis Central retinal artery occlusion, left eye- Primary Central artery occlusion of retina Sudden loss of vision, left Headache, temporal Headache After-cataract with vision obscured of both eyes Follicular lymphoma, unspecified follicular lymphoma type, unspecified body region (HCC) Essential hypertension Unspecified essential hypertension Mixed hyperlipidemia Paroxysmal atrial fibrillation (HCC) Atrial fibrillation [facility] Diagnosis Central retinal artery occlusion, left eye- Primary Central artery occlusion of retina Ischemic stroke (HCC) Essential hypertension Unspecified essential hypertension Hypercholesteremia Pure hypercholesterolemia Paroxysmal atrial fibrillation (HCC) Atrial fibrillation documented in this encounter [facility] note* Diagnosis PAF (paroxysmal atrial fibrillation) (HCC)- Primary Atrial fibrillation Ischemic stroke (HCC) Essential hypertension Unspecified essential hypertension PERCY (obstructive sleep apnea) Obstructive sleep apnea (adult) (pediatric) PVC (premature ventricular contraction) Other premature beats [facility]* Diagnosis Primary osteoarthritis of left knee- Primary Primary localized osteoarthrosis, lower leg [facility] Diagnosis 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 disease, without long-term current use of insulin- Primary Hyperlipidemia LDL goal <70 Other and unspecified hyperlipidemia Hypertriglyceridemia Pure hyperglyceridemia Idiopathic chronic gout without tophus, unspecified site B12 deficiency Other B-complex deficiencies Chronic gastritis without bleeding, unspecified gastritis type Folate deficiency Other B-complex deficiencies Fatty liver Other chronic nonalcoholic liver disease Anemia, unspecified type Gastroesophageal reflux disease without esophagitis Esophageal reflux Hepatomegaly Vitamin D deficiency Unspecified vitamin D deficiency Duodenal diverticulum Diverticulosis of small intestine (without mention of hemorrhage) Esophagitis, Clyo grade A Esophageal stenosis Stricture and stenosis of esophagus Paroxysmal atrial fibrillation Atrial fibrillation Chronic midline low back pain without sciatica Spinal stenosis of lumbar region without neurogenic claudication Spinal stenosis, lumbar region, without neurogenic claudication Spondylosis of cervical region without myelopathy or radiculopathy Cervical spondylosis without myelopathy Spondylosis of lumbar region without myelopathy or radiculopathy Lumbosacral spondylosis without myelopathy Combined forms of age-related cataract, bilateral Hypermetropia of left eye Hypermetropia Unspecified amblyopia, right eye Regular astigmatism of left eye Regular astigmatism Pinguecula of both eyes Pinguecula Blepharitis of upper eyelids of both eyes, unspecified type Allergic conjunctivitis of both eyes Other chronic allergic conjunctivitis Other idiopathic scoliosis, lumbar region Primary osteoarthritis of both hips-Mild Primary localized osteoarthrosis, pelvic region and thigh Primary osteoarthritis of both knees Primary localized osteoarthrosis, lower leg Bilateral carotid artery stenosis-30% Right, 60% Left Occlusion and stenosis of multiple and bilateral precerebral arteries without mention of cerebral infarction Central retinal artery occlusion of left eye Central artery occlusion of retina Bradycardia Other specified cardiac dysrhythmias Cerebrovascular accident (CVA), unspecified mechanism Essential hypertension Unspecified essential hypertension Ischemic stroke Internal and external hemorrhoids without complication Internal hemorrhoids without mention of complication PVC's (premature ventricular contractions) Other premature beats Chronic obstructive pulmonary disease, unspecified COPD type Chronic sinusitis, unspecified location Moderate persistent asthma without complication Unspecified asthma Non-seasonal allergic rhinitis, unspecified trigger PERCY on CPAP-No on BiPAP due to intolerance Obstructive sleep apnea (adult) (pediatric) Pulmonary emphysema, unspecified emphysema type Hiatal hernia Diaphragmatic hernia without mention of obstruction or gangrene HNP (herniated nucleus pulposus), lumbar-Multi level Displacement of lumbar intervertebral disc without myelopathy Renal cyst, right Unspecified congenital cystic kidney disease Mixed stress and urge incontinence CKD (chronic kidney disease) stage 2, GFR 60-89 ml/min Chronic kidney disease, Stage II (mild) Macrocytosis Other specified diseases of blood and blood-forming organs Seborrheic keratosis, inflamed-Left thigh-S/P Excision Inflamed seborrheic keratosis [id number] on 09-30-2020 Anxiety and depression Dysthymic disorder Hyponatremia Hyposmolality and/or hyponatremia Vision loss of left eye Unqualified visual loss, one eye Urinary frequency Pseudophakia Lens replaced by other means Presbyopia Osteopenia determined by x-ray Obesity (BMI 30.0-34.9) Obesity, unspecified S/P total knee arthroplasty, right S/P unilateral salpingo-oophorectomy Acquired absence of organ, genital organs Insomnia, unspecified type Irregular astigmatism of right eye Irregular astigmatism Low HDL (under 40) Lipoprotein deficiencies Myopia of right eye Myopia Fatty food intolerance Other specified intestinal malabsorption Fatigue, unspecified type History of anemia Personal history of diseases of blood and blood-forming organs History of ETOH abuse Nondependent alcohol abuse, in remission History of cataract extraction, unspecified laterality Former smoker-Quit 2011 Personal history of tobacco use, presenting hazards to health Family history of Alzheimer's disease Family history of other condition Elevated LFTs Other abnormal blood chemistry Bilateral dry eyes Tear film insufficiency, unspecified ASCUS of cervix with negative high risk HPV [facility] Diagnosis PERCY (obstructive sleep apnea)- Primary Obstructive sleep apnea (adult) (pediatric) [facility]* Diagnosis Encounter for screening mammogram for malignant neoplasm of breast Other screening mammogram Primary osteoarthritis of left knee Primary localized osteoarthrosis, lower leg [facility] Diagnosis Central retinal artery occlusion, left eye- Primary Central artery occlusion of retina Ischemic stroke (HCC) Essential hypertension Unspecified essential hypertension Hypercholesteremia Pure hypercholesterolemia Paroxysmal atrial fibrillation (HCC) Atrial fibrillation [facility]* Diagnosis Asymptomatic postmenopausal state Primary osteoarthritis of left knee Primary localized osteoarthrosis, lower leg [facility] Diagnosis PERCY (obstructive sleep apnea)- Primary Obstructive sleep apnea (adult) (pediatric) documented in this encounter [facility] note* Diagnosis Preop testing- Primary Preoperative examination, unspecified Abnormal finding of blood chemistry, unspecified Abnormal coagulation profile Stage 3a chronic kidney disease Primary osteoarthritis of left knee Primary localized osteoarthrosis, lower leg [facility] Diagnosis Toe infection- Primary Unspecified local infection of skin and subcutaneous tissue Primary osteoarthritis of left knee Primary localized osteoarthrosis, lower leg [facility] Diagnosis Cellulitis of fourth toe of left foot Cellulitis and abscess of toe, unspecified Primary osteoarthritis of left knee Primary localized osteoarthrosis, lower leg [facility] Diagnosis Cellulitis of fourth toe of left foot- Primary Cellulitis and abscess of toe, unspecified Cellulitis of fourth toe of left foot Cellulitis and abscess of toe, unspecified Primary osteoarthritis of left knee Primary localized osteoarthrosis, lower leg [facility] Diagnosis Cellulitis and abscess of toe of left foot- Primary Primary osteoarthritis of left knee Primary localized osteoarthrosis, lower leg [facility] Diagnosis Toe infection Unspecified local infection of skin and subcutaneous tissue Primary osteoarthritis of left knee Primary localized osteoarthrosis, lower leg [facility] Diagnosis Cellulitis and abscess of toe of left foot- Primary Cellulitis and abscess of toe of left foot [facility] Diagnosis Spondylosis of lumbar region without myelopathy or radiculopathy Lumbosacral spondylosis without myelopathy [facility] Diagnosis Cellulitis and abscess of toe of left foot- Primary Cellulitis and abscess of toe of left foot [facility] Diagnosis Cellulitis and abscess of toe of left foot [facility]* Diagnosis Lumbar spondylosis Lumbosacral spondylosis without myelopathy [facility]* Diagnosis Urinary incontinence, unspecified type- Primary Dysuria [facility]* Diagnosis Cellulitis and abscess of toe of left foot- Primary [facility]* Diagnosis PERCY (obstructive sleep apnea)- Primary Obstructive sleep apnea (adult) (pediatric) [facility]* Diagnosis Cellulitis of other specified site- Primary Abscess of fourth toe of left foot Cellulitis and abscess of toe, unspecified Cellulitis of fourth toe, left Cellulitis and abscess of toe, unspecified [facility]* Diagnosis Abscess of fourth toe of left foot Cellulitis and abscess of toe, unspecified Cellulitis of fourth toe, left Cellulitis and abscess of toe, unspecified [facility] Diagnosis Cellulitis of other specified site- Primary Elevated glucose Other abnormal glucose Healthcare maintenance Routine general medical examination at a health care facility [facility] Diagnosis Osteoarthritis of right sacroiliac joint- Primary Pain of right sacroiliac joint Disorders of sacrum [facility] Diagnosis Cellulitis of other specified site- Primary Healthcare maintenance Routine general medical examination at a health care facility Elevated glucose Other abnormal glucose Open wound of fourth toe of left foot, sequela [facility]* Diagnosis Cellulitis and abscess of toe of left foot- Primary [facility] Diagnosis Cellulitis and abscess of toe of left foot- Primary [facility]* Diagnosis Cellulitis of other specified site- Primary Healthcare maintenance Routine general medical examination at a health care facility Open wound of fourth toe of left foot, sequela Recurrent infections Unspecified infectious and parasitic diseases [facility]* Diagnosis Cellulitis and abscess of toe of left foot- Primary Skin ulcer of fourth toe of left foot with fat layer exposed [facility] Diagnosis Open wound of fourth toe of left foot, sequela- Primary Cellulitis of other specified site Healthcare maintenance Routine general medical examination at a health care facility [facility] Diagnosis Cellulitis of other specified site- Primary [facility]* Diagnosis Cellulitis of other specified site- Primary [facility]* Diagnosis Cellulitis of other specified site- Primary [facility]* Diagnosis Cellulitis of other specified site- Primary [facility] Diagnosis Cellulitis of other specified site- Primary [facility]* Diagnosis Cellulitis of other specified site- Primary Open wound of fourth toe of left foot, sequela Healthcare maintenance Routine general medical examination at a health care facility Recurrent infections Unspecified infectious and parasitic diseases [facility]* Diagnosis Cellulitis of other specified site- Primary Open wound of fourth toe of left foot, sequela Recurrent infections Unspecified infectious and parasitic diseases [facility] Diagnosis PERCY (obstructive sleep apnea)- Primary Obstructive sleep apnea (adult) (pediatric) [facility] noteNo assessment information availableWOhioHealth [facility] Work Phone: Evaluation note* Diagnosis Optic atrophy of left eye- Primary Optic atrophy, unspecified Ischemic stroke (HCC) Cataract, secondary obscuring vision, bilateral Pseudophakia, both eyes Lens replaced by other means Essential hypertension Unspecified essential hypertension Mixed hyperlipidemia PERCY (obstructive sleep apnea) Obstructive sleep apnea (adult) (pediatric) [facility] Diagnosis Cellulitis and abscess of toe of left foot- Primary [facility]* Diagnosis Recurrent infections- Primary Unspecified infectious and parasitic diseases Open wound of fourth toe of left foot, sequela Healthcare maintenance Routine general medical examination at a health care facility Elevated glucose Other abnormal glucose [facility]* Diagnosis PERCY (obstructive sleep apnea)- Primary Obstructive sleep apnea (adult) (pediatric) [facility]* Diagnosis Cellulitis and abscess of toe of left foot- Primary [facility]* Diagnosis Recurrent infections- Primary Unspecified infectious and parasitic diseases Open wound of fourth toe of left foot, sequela [facility]* Diagnosis Skin ulcer of fourth toe of left foot with fat layer exposed- Primary [facility]* Diagnosis Osteoarthritis of right sacroiliac joint- Primary Pain of right sacroiliac joint Disorders of sacrum Osteoarthritis of right sacroiliac joint Pain of right sacroiliac joint Disorders of sacrum [facility] Diagnosis Osteoarthritis of right sacroiliac joint Pain of right sacroiliac joint Disorders of sacrum [facility]* Diagnosis Recurrent infections- Primary Unspecified infectious and parasitic diseases Open wound of fourth toe of left foot, sequela Healthcare maintenance Routine general medical examination at a health care facility [facility]* Diagnosis LUQ abdominal pain Abdominal pain, left upper quadrant [facility] LUQ abdominal pain- Primary Abdominal pain, left upper quadrant CLL (chronic lymphocytic leukemia) Chronic lymphoid leukemia, without mention of having achieved remission LUQ abdominal pain Abdominal pain, left upper quadrant [facility] Diagnosis Chronic kidney disease, stage II (mild)- Primary Chronic kidney disease, Stage II (mild) [facility] Diagnosis Open wound of fourth toe of left foot, sequela- Primary Healthcare maintenance Routine general medical examination at a health care facility [facility]* Diagnosis Preop testing- Primary Unspecified pre-operative examination Atrial fibrillation, unspecified type (HCC) [facility] Diagnosis Preop testing- Primary Unspecified pre-operative examination [facility]* Diagnosis Atrial fibrillation, unspecified type (HCC)- Primary CLL (chronic lymphocytic leukemia) (HCC) Chronic lymphoid leukemia, without mention of having achieved remission NHL (nodular histiocytic lymphoma) (HCC) Reticulosarcoma, unspecified site, extranodal and solid organ sites Essential hypertension Unspecified essential hypertension documented in this encounter [facility]* Diagnosis Atrial fibrillation, unspecified type (HCC)- Primary [facility]* Diagnosis Atrial fibrillation, unspecified type (HCC)- Primary documented in this encounter [facility]* Diagnosis Atrial fibrillation, unspecified type (HCC)- Primary [facility]* Diagnosis Osteoarthritis of right sacroiliac joint- Primary Pain of right sacroiliac joint Disorders of sacrum Lumbar spondylosis Lumbosacral spondylosis without myelopathy Spondylolisthesis of lumbar region Acquired spondylolisthesis Sacroiliitis Sacroiliitis, not elsewhere classified [facility]* Diagnosis Vertebrogenic low back pain [facility]* Diagnosis Encounter for screening mammogram for malignant neoplasm of breast Other screening mammogram [facility]* Diagnosis Sacroiliitis, not elsewhere classified documented in this encounter [facility]* Diagnosis Sacroiliitis, not elsewhere classified documented in this encounter [facility] note* Diagnosis Abnormal thyroid stimulating hormone (TSH) level- Primary Dysphagia, unspecified type Hyperthyroidism Thyrotoxicosis without mention of goiter or other cause, without mention of thyrotoxic crisis or storm [facility]* Diagnosis Abnormal thyroid stimulating hormone (TSH) level Dysphagia, unspecified type Hyperthyroidism Thyrotoxicosis without mention of goiter or other cause, without mention of thyrotoxic crisis or storm [facility] Diagnosis Abnormal thyroid stimulating hormone (TSH) level- Primary Dysphagia, unspecified type Sacroiliitis Sacroiliitis, not elsewhere classified [facility] Diagnosis Type 2 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 disease, without long-term current use of insulin- Primary Hyperlipidemia LDL goal <70 Other and unspecified hyperlipidemia Hyperthyroidism Thyrotoxicosis without mention of goiter or other cause, without mention of thyrotoxic crisis or storm Hypertriglyceridemia Pure hyperglyceridemia Hypomagnesemia Disorders of magnesium metabolism Hypoproteinemia Other disorders of plasma protein metabolism Idiopathic chronic gout without tophus, unspecified site Vitamin D deficiency Unspecified vitamin D deficiency Hepatomegaly Gastroesophageal reflux disease without esophagitis Esophageal reflux Folate deficiency Other B-complex deficiencies Fatty liver Other chronic nonalcoholic liver disease Esophagitis, Clyo grade A Esophageal stenosis Stricture and stenosis of esophagus Duodenal diverticulum Diverticulosis of small intestine (without mention of hemorrhage) Chronic gastritis without bleeding, unspecified gastritis type B12 deficiency Other B-complex deficiencies PVC's (premature ventricular contractions) Other premature beats Presence of Watchman left atrial appendage closure device Paroxysmal atrial fibrillation Atrial fibrillation PAC (premature atrial contraction) Supraventricular premature beats Ischemic stroke Internal and external hemorrhoids without complication Internal hemorrhoids without mention of complication Hypertensive heart disease without heart failure Unspecified hypertensive heart disease without heart failure Essential hypertension Unspecified essential hypertension Cerebrovascular accident (CVA), unspecified mechanism Central retinal artery occlusion of left eye Central artery occlusion of retina Bradycardia Other specified cardiac dysrhythmias Bilateral carotid artery stenosis-30% Right, 60% Left Occlusion and stenosis of multiple and bilateral precerebral arteries without mention of cerebral infarction Atherosclerosis of abdominal aorta Atherosclerosis of aorta Pulmonary emphysema, unspecified emphysema type PERCY on CPAP-Off BiPAP due to intolerance Obstructive sleep apnea (adult) (pediatric) Non-seasonal allergic rhinitis, unspecified trigger Moderate persistent asthma without complication Unspecified asthma Hiatal hernia Diaphragmatic hernia without mention of obstruction or gangrene Chronic sinusitis, unspecified location Chronic obstructive pulmonary disease, unspecified COPD type Chronic midline low back pain without sciatica Blepharitis of upper eyelids of both eyes, unspecified type Allergic conjunctivitis of both eyes Other chronic allergic conjunctivitis Combined forms of age-related cataract, bilateral Hypermetropia of left eye Hypermetropia Lacunar infarction Unspecified cerebral artery occlusion with cerebral infarction Other optic atrophy, left eye Sacroiliitis Sacroiliitis, not elsewhere classified PCO (posterior capsular opacification), left After-cataract, unspecified Unspecified amblyopia, right eye Regular astigmatism of left eye Regular astigmatism Posterior capsular opacification non visually significant, both eyes-L>R Other after-cataract, not obscuring vision Pinguecula of both eyes Pinguecula HNP (herniated nucleus pulposus), lumbar-Multi level Displacement of lumbar intervertebral disc without myelopathy Osteopenia determined by x-ray Other idiopathic scoliosis, lumbar region Primary osteoarthritis of both hips-Mild Primary localized osteoarthrosis, pelvic region and thigh Primary osteoarthritis of both knees Primary localized osteoarthrosis, lower leg Spinal stenosis of lumbar region without neurogenic claudication Spinal stenosis, lumbar region, without neurogenic claudication Spondylosis of cervical region without myelopathy or radiculopathy Cervical spondylosis without myelopathy Spondylosis of lumbar region without myelopathy or radiculopathy Lumbosacral spondylosis without myelopathy Anemia, unspecified type Left renal stone Mixed stress and urge incontinence Renal cyst, right Unspecified congenital cystic kidney disease Stage 3a chronic kidney disease Uterine leiomyoma, unspecified location Seborrheic keratosis, inflamed-Left thigh-S/P Excision Inflamed seborrheic keratosis CLL (chronic lymphocytic leukemia) Chronic lymphoid leukemia, without mention of having achieved remission Macrocytosis Other specified diseases of blood and blood-forming organs Anxiety and depression Dysthymic disorder ASCUS of cervix with negative high risk HPV Elevated LFTs Other abnormal blood chemistry Chronic anticoagulation Encounter for long-term (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 of anticoagulants 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 Profound impairment, one eye, Impairment level not further specified Bilateral dry eyes Tear film insufficiency, unspecified Fatigue, unspecified type Fatty food intolerance Other specified intestinal malabsorption Hyponatremia Hyposmolality and/or hyponatremia Insomnia, unspecified type Irregular astigmatism of right eye Irregular astigmatism Low HDL (under 40) Lipoprotein deficiencies Myopia of right eye Myopia Obesity (BMI 30.0-34.9) Obesity, unspecified Presbyopia Pseudophakia of both eyes Lens replaced by other means Former smoker-Quit 2011 Personal history of tobacco use, presenting hazards to health Vision loss of left eye Unqualified visual loss, one eye S/P unilateral salpingo-oophorectomy Acquired absence of organ, genital organs S/P total knee arthroplasty, right History of ETOH abuse Nondependent alcohol abuse, in remission History of [id number] 09-30-2020 History of cataract extraction, unspecified laterality History of anemia Personal history of diseases of blood and blood-forming organs Family history of Alzheimer's disease Family history of other condition Sacroiliitis Sacroiliitis, not elsewhere classified [facility] Diagnosis Sacroiliitis- Primary Sacroiliitis, not elsewhere classified [facility]* Diagnosis Spondylosis of lumbar region without myelopathy or radiculopathy Lumbosacral spondylosis without myelopathy [facility]* Diagnosis Atrial fibrillation, unspecified type (HCC)- Primary documented in this encounter [facility]* Diagnosis Spondylosis without myelopathy or radiculopathy, lumbar region [facility]* Diagnosis After cataract not obscuring vision, bilateral- Primary Pseudophakia of both eyes Lens replaced by other means 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, unspecified Essential hypertension Unspecified essential hypertension Hypercholesteremia Pure hypercholesterolemia [facility] Diagnosis Left knee pain, unspecified chronicity- Primary [facility]* Diagnosis After cataract not obscuring vision, bilateral- Primary Pseudophakia of both eyes Lens replaced by other means 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, unspecified Essential hypertension Unspecified essential hypertension Hypercholesteremia Pure hypercholesterolemia documented in this encounter [facility] note* Diagnosis Type 2 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 disease, without long-term current use of insulin- Primary Stage 3a chronic kidney disease Hyperlipidemia LDL goal <70 Other and unspecified hyperlipidemia Hyperthyroidism Thyrotoxicosis without mention of goiter or other cause, without mention of thyrotoxic crisis or storm Hypertriglyceridemia Pure hyperglyceridemia Hypomagnesemia Disorders of magnesium metabolism Iron deficiency anemia, unspecified iron deficiency anemia type Idiopathic chronic gout without tophus, unspecified site Hypoproteinemia Other disorders of plasma protein metabolism Vitamin D deficiency Unspecified vitamin D deficiency Hepatomegaly Gastroesophageal reflux disease without esophagitis Esophageal reflux Folate deficiency Other B-complex deficiencies Odynophagia Dysphagia, unspecified Fatty liver Other chronic nonalcoholic liver disease Esophagitis, Clyo grade A Esophageal stenosis Stricture and stenosis of esophagus Duodenal diverticulum Diverticulosis of small intestine (without mention of hemorrhage) Chronic gastritis without bleeding, unspecified gastritis type B12 deficiency Other B-complex deficiencies PVC's (premature ventricular contractions) Other premature beats Paroxysmal atrial fibrillation Atrial fibrillation Presence of Watchman left atrial appendage closure device PAC (premature atrial contraction) Supraventricular premature beats Ischemic stroke Internal and external hemorrhoids without complication Internal hemorrhoids without mention of complication Hypertensive heart disease without heart failure Unspecified hypertensive heart disease without heart failure Essential hypertension Unspecified essential hypertension Cerebrovascular accident (CVA), unspecified mechanism Central retinal artery occlusion of left eye Central artery occlusion of retina Bradycardia Other specified cardiac dysrhythmias Bilateral carotid artery stenosis-30% Right, 60% Left Occlusion and stenosis of multiple and bilateral precerebral arteries without mention of cerebral infarction Atherosclerosis of abdominal aorta Atherosclerosis of aorta Pulmonary emphysema, unspecified emphysema type PERCY on CPAP-Off BiPAP due to intolerance Obstructive sleep apnea (adult) (pediatric) Non-seasonal allergic rhinitis, unspecified trigger Moderate persistent asthma without complication Unspecified asthma Hiatal hernia Diaphragmatic hernia without mention of obstruction or gangrene Chronic sinusitis, unspecified location Chronic obstructive pulmonary disease, unspecified COPD type Allergic conjunctivitis of both eyes Other chronic allergic conjunctivitis Blepharitis of upper eyelids of both eyes, unspecified type Chronic midline low back pain without sciatica Combined forms of age-related cataract, bilateral Hypermetropia of left eye Hypermetropia Lacunar infarction Unspecified cerebral artery occlusion with cerebral infarction Other optic atrophy, left eye PCO (posterior capsular opacification), left After-cataract, unspecified Pinguecula of both eyes Pinguecula Posterior capsular opacification non visually significant, both eyes-L>R Other after-cataract, not obscuring vision Regular astigmatism of left eye Regular astigmatism Unspecified amblyopia, right eye HNP (herniated nucleus pulposus), lumbar-Multi level Displacement of lumbar intervertebral disc without myelopathy Osteopenia determined by x-ray Other idiopathic scoliosis, lumbar region Primary osteoarthritis of both knees Primary localized osteoarthrosis, lower leg Primary osteoarthritis of both hips-Mild Primary localized osteoarthrosis, pelvic region and thigh Spinal stenosis of lumbar region without neurogenic claudication Spinal stenosis, lumbar region, without neurogenic claudication Spondylosis of cervical region without myelopathy or radiculopathy Cervical spondylosis without myelopathy Spondylosis of lumbar region without myelopathy or radiculopathy Lumbosacral spondylosis without myelopathy Renal cyst, right Unspecified congenital cystic kidney disease Mixed stress and urge incontinence Left renal stone Uterine leiomyoma, unspecified location Seborrheic keratosis, inflamed-Left thigh-S/P Excision Inflamed seborrheic keratosis Primary osteoarthritis of left knee Primary localized osteoarthrosis, lower leg CLL (chronic lymphocytic leukemia) Chronic lymphoid leukemia, without mention of having achieved remission Macrocytosis Other specified diseases of blood and blood-forming organs Anxiety and depression Dysthymic disorder ASCUS of cervix with negative high risk HPV Chronic anticoagulation Encounter for long-term (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 of anticoagulants 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 Profound impairment, one eye, Impairment level not further specified Bilateral dry eyes Tear film insufficiency, unspecified Elevated LFTs Other abnormal blood chemistry Fatigue, unspecified type Fatty food intolerance Other specified intestinal malabsorption Hyponatremia Hyposmolality and/or hyponatremia Insomnia, unspecified type Irregular astigmatism of right eye Irregular astigmatism Low HDL (under 40) Lipoprotein deficiencies Myopia of right eye Myopia Obesity (BMI 30.0-34.9) Obesity, unspecified Pseudophakia of both eyes Lens replaced by other means Presbyopia Sacroiliitis Sacroiliitis, not elsewhere classified Vision loss of left eye Unqualified visual loss, one eye S/P unilateral salpingo-oophorectomy Acquired absence of organ, genital organs S/P total knee arthroplasty, right History of ETOH abuse Nondependent alcohol abuse, in remission History of [id number] 09-30-2020 History of cataract extraction, unspecified laterality Former smoker-Quit 2011 Personal history of tobacco use, presenting hazards to health Family history of Alzheimer's disease-Father Family history of other condition Family history of hypertension in mother Preop testing- Primary Preoperative examination, unspecified Alteration in blood glucose level Pain in other specified joint Osteoarthritis of left knee, unspecified osteoarthritis type [facility] Diagnosis CLL (chronic lymphocytic leukemia)- Primary Chronic lymphoid leukemia, without mention of having achieved remission Osteoarthritis of left knee, unspecified osteoarthritis type [facility] Diagnosis Dysphagia, unspecified type Iron deficiency anemia, unspecified iron deficiency anemia type Osteoarthritis of left knee, unspecified osteoarthritis type [facility]* Diagnosis Chronic kidney disease, stage II (mild)- Primary Chronic kidney disease, Stage II (mild) Osteoarthritis of left knee, unspecified osteoarthritis type documented [facility]* Diagnosis Type 2 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 disease, without long-term current use of insulin- Primary Hyperlipidemia LDL goal <70 Other and unspecified hyperlipidemia Hyperthyroidism Thyrotoxicosis without mention of goiter or other cause, without mention of thyrotoxic crisis or storm Hypertriglyceridemia Pure hyperglyceridemia Hypomagnesemia Disorders of magnesium metabolism Hypoproteinemia Other disorders of plasma protein metabolism Idiopathic chronic gout without tophus, unspecified site Vitamin D deficiency Unspecified vitamin D deficiency Hepatomegaly Odynophagia Dysphagia, unspecified Gastroesophageal reflux disease without esophagitis Esophageal reflux Folate deficiency Other B-complex deficiencies Fatty liver Other chronic nonalcoholic liver disease Esophagitis, Clyo grade A Esophageal stenosis Stricture and stenosis of esophagus Duodenal diverticulum Diverticulosis of small intestine (without mention of hemorrhage) Chronic gastritis without bleeding, unspecified gastritis type B12 deficiency Other B-complex deficiencies PVC's (premature ventricular contractions) Other premature beats Presence of Watchman left atrial appendage closure device Paroxysmal atrial fibrillation Atrial fibrillation PAC (premature atrial contraction) Supraventricular premature beats Ischemic stroke Internal and external hemorrhoids without complication Internal hemorrhoids without mention of complication Hypertensive heart disease without heart failure Unspecified hypertensive heart disease without heart failure Essential hypertension Unspecified essential hypertension Cerebrovascular accident (CVA), unspecified mechanism Central retinal artery occlusion of left eye Central artery occlusion of retina Bradycardia Other specified cardiac dysrhythmias Bilateral carotid artery stenosis-30% Right, 60% Left Occlusion and stenosis of multiple and bilateral precerebral arteries without mention of cerebral infarction Atherosclerosis of abdominal aorta Atherosclerosis of aorta Pulmonary emphysema, unspecified emphysema type PERCY on CPAP-Off BiPAP due to intolerance Obstructive sleep apnea (adult) (pediatric) Non-seasonal allergic rhinitis, unspecified trigger Moderate persistent asthma without complication Unspecified asthma Hiatal hernia Diaphragmatic hernia without mention of obstruction or gangrene Chronic sinusitis, unspecified location Chronic obstructive pulmonary disease, unspecified COPD type Iron deficiency anemia, unspecified iron deficiency anemia type Left renal stone Mixed stress and urge incontinence Stage 3a chronic kidney disease Renal cyst, right Unspecified congenital cystic kidney disease Uterine leiomyoma, unspecified location CLL (chronic lymphocytic leukemia) Chronic lymphoid leukemia, without mention of having achieved remission Elevated LFTs Other abnormal blood chemistry Chronic anticoagulation Encounter for long-term (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 of anticoagulants Fatigue, unspecified type Fatty food intolerance Other specified intestinal malabsorption Bilateral dry eyes Tear film insufficiency, unspecified 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 Profound impairment, one eye, Impairment level not further specified Macrocytosis Other specified diseases of blood and blood-forming organs Hyponatremia Hyposmolality and/or hyponatremia Insomnia, unspecified type Irregular astigmatism of right eye Irregular astigmatism Low HDL (under 40) Lipoprotein deficiencies Myopia of right eye Myopia Orthostasis Orthostatic hypotension Obesity (BMI 30.0-34.9) Obesity, unspecified Presbyopia Pseudophakia of both eyes Lens replaced by other means Sacroiliitis Sacroiliitis, not elsewhere classified Vision loss of left eye Unqualified visual loss, one eye Anxiety and depression Dysthymic disorder ASCUS of cervix with negative high risk HPV Seborrheic keratosis, inflamed-Left thigh-S/P Excision Inflamed seborrheic keratosis Spondylosis of lumbar region without myelopathy or radiculopathy Lumbosacral spondylosis without myelopathy Spondylosis of cervical region without myelopathy or radiculopathy Cervical spondylosis without myelopathy Spinal stenosis of lumbar region without neurogenic claudication Spinal stenosis, lumbar region, without neurogenic claudication Primary osteoarthritis of left knee Primary localized osteoarthrosis, lower leg Primary osteoarthritis of both knees Primary localized osteoarthrosis, lower leg Primary osteoarthritis of both hips-Mild Primary localized osteoarthrosis, pelvic region and thigh Other idiopathic scoliosis, lumbar region Osteopenia determined by x-ray HNP (herniated nucleus pulposus), lumbar-Multi level Displacement of lumbar intervertebral disc without myelopathy Unspecified amblyopia, right eye Regular astigmatism of left eye Regular astigmatism Posterior capsular opacification non visually significant, both eyes-L>R Other after-cataract, not obscuring vision PCO (posterior capsular opacification), left After-cataract, unspecified Pinguecula of both eyes Pinguecula Other optic atrophy, left eye Calcification of aorta Atherosclerosis of aorta Lacunar infarction Unspecified cerebral artery occlusion with cerebral infarction Hypermetropia of left eye Hypermetropia Combined forms of age-related cataract, bilateral Allergic conjunctivitis of both eyes Other chronic allergic conjunctivitis Blepharitis of upper eyelids of both eyes, unspecified type Chronic midline low back pain without sciatica Former smoker-Quit 2011 Personal history of tobacco use, presenting hazards to health History of cataract extraction, unspecified laterality History of [id number] 09-30-2020 History of ETOH abuse Nondependent alcohol abuse, in remission Family history of hypertension in mother Family history of Alzheimer's disease-Father Family history of other condition S/P total knee arthroplasty, right S/P unilateral salpingo-oophorectomy Acquired absence of organ, genital organs Osteoarthritis of left knee, unspecified osteoarthritis type [facility]* Diagnosis Osteoarthritis of left knee- Primary Osteoarthrosis, unspecified whether generalized or localized, lower leg Osteoarthritis of left knee, unspecified osteoarthritis type Acute postoperative pain of left knee [facility]* Diagnosis Dysphagia, unspecified type Iron deficiency anemia, unspecified iron deficiency anemia type documented [facility]* Diagnosis History of total knee arthroplasty, left- Primary Pain of left calf Calf swelling Swelling of limb Acute postoperative pain of left knee [facility]* Diagnosis Dysphagia, unspecified type- Primary Iron deficiency anemia, unspecified iron deficiency anemia type Dysphagia, unspecified type Iron deficiency anemia, unspecified iron deficiency anemia type Dysphagia, unspecified type Iron deficiency anemia, unspecified iron deficiency anemia type documented [facility]* Diagnosis Dysphagia, unspecified type- Primary Esophageal dysmotility Dyskinesia of esophagus documented [facility]* Diagnosis S/P total knee arthroplasty, left- Primary [facility]* Diagnosis Type 2 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 disease, without long-term current use of insulin- Primary Idiopathic chronic gout without tophus, unspecified site Hypoproteinemia Other disorders of plasma protein metabolism Hypomagnesemia Disorders of magnesium metabolism Hypertriglyceridemia Pure hyperglyceridemia Hyperthyroidism Thyrotoxicosis without mention of goiter or other cause, without mention of thyrotoxic crisis or storm Hyperlipidemia LDL goal <70 Other and unspecified hyperlipidemia Vitamin D deficiency Unspecified vitamin D deficiency Odynophagia Dysphagia, unspecified Iron deficiency anemia, unspecified iron deficiency anemia type Hepatomegaly CLL (chronic lymphocytic leukemia) Chronic lymphoid leukemia, without mention of having achieved remission Macrocytosis Other specified diseases of blood and blood-forming organs Stage 3a chronic kidney disease Gastroesophageal reflux disease without esophagitis Esophageal reflux Folate deficiency Other B-complex deficiencies Elevated LFTs Other abnormal blood chemistry Fatty liver Other chronic nonalcoholic liver disease Esophagitis, Clyo grade A Esophageal stenosis Stricture and stenosis of esophagus Duodenal diverticulum Diverticulosis of small intestine (without mention of hemorrhage) Chronic gastritis without bleeding, unspecified gastritis type B12 deficiency Other B-complex deficiencies PVC's (premature ventricular contractions) Other premature beats Presence of Watchman left atrial appendage closure device Paroxysmal atrial fibrillation Atrial fibrillation PAC (premature atrial contraction) Supraventricular premature beats Orthostasis Orthostatic hypotension Ischemic stroke Episodic lightheadedness Dizziness and giddiness Chronic obstructive pulmonary disease, unspecified COPD type Hiatal hernia Diaphragmatic hernia without mention of obstruction or gangrene Chronic sinusitis, unspecified location Moderate persistent asthma without complication Unspecified asthma PERCY on CPAP-Off BiPAP due to intolerance Obstructive sleep apnea (adult) (pediatric) Non-seasonal allergic rhinitis, unspecified trigger Pulmonary emphysema, unspecified emphysema type Atherosclerosis of abdominal aorta Atherosclerosis of aorta Bilateral carotid artery stenosis-30% Right, 60% Left Occlusion and stenosis of multiple and bilateral precerebral arteries without mention of cerebral infarction Bradycardia Other specified cardiac dysrhythmias Calcification of aorta Atherosclerosis of aorta Central retinal artery occlusion of left eye Central artery occlusion of retina Essential hypertension Unspecified essential hypertension Hypertensive heart disease without heart failure Unspecified hypertensive heart disease without heart failure Internal and external hemorrhoids without complication Internal hemorrhoids without mention of complication History of CVA (cerebrovascular accident) Transient ischemic attack (TIA), and cerebral infarction without residual deficits Allergic conjunctivitis of both eyes Other chronic allergic conjunctivitis Blepharitis of upper eyelids of both eyes, unspecified type Combined forms of age-related cataract, bilateral Chronic midline low back pain without sciatica Hypermetropia of left eye Hypermetropia Other optic atrophy, left eye PCO (posterior capsular opacification), left After-cataract, unspecified Pinguecula of both eyes Pinguecula Posterior capsular opacification non visually significant, both eyes-L>R Other after-cataract, not obscuring vision Regular astigmatism of left eye Regular astigmatism Unspecified amblyopia, right eye HNP (herniated nucleus pulposus), lumbar-Multi level Displacement of lumbar intervertebral disc without myelopathy Osteoarthritis of left knee, unspecified osteoarthritis type Osteopenia determined by x-ray Other idiopathic scoliosis, lumbar region Primary osteoarthritis of both hips-Mild Primary localized osteoarthrosis, pelvic region and thigh Primary osteoarthritis of both knees Primary localized osteoarthrosis, lower leg Spinal stenosis of lumbar region without neurogenic claudication Spinal stenosis, lumbar region, without neurogenic claudication Spondylosis of cervical region without myelopathy or radiculopathy Cervical spondylosis without myelopathy Spondylosis of lumbar region without myelopathy or radiculopathy Lumbosacral spondylosis without myelopathy Left renal stone Mixed stress and urge incontinence Renal cyst, right Unspecified congenital cystic kidney disease Uterine leiomyoma, unspecified location Seborrheic keratosis, inflamed-Left thigh-S/P Excision Inflamed seborrheic keratosis Anxiety and depression Dysthymic disorder ASCUS of cervix with negative high risk HPV Bilateral dry eyes Tear film insufficiency, unspecified 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 Profound impairment, one eye, Impairment level not further specified Chronic anticoagulation Encounter for long-term (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 of anticoagulants Fatigue, unspecified type Fatty food intolerance Other specified intestinal malabsorption Former smoker-Quit 2011 Personal history of tobacco use, presenting hazards to health Hyponatremia Hyposmolality and/or hyponatremia Insomnia, unspecified type Irregular astigmatism of right eye Irregular astigmatism Low HDL (under 40) Lipoprotein deficiencies Myopia of right eye Myopia Obesity (BMI 30.0-34.9) Obesity, unspecified Presbyopia Pseudophakia of both eyes Lens replaced by other means Sacroiliitis Sacroiliitis, not elsewhere classified Vision loss of left eye Unqualified visual loss, one eye S/P unilateral salpingo-oophorectomy Acquired absence of organ, genital organs S/P total knee arthroplasty, right History of ETOH abuse Nondependent alcohol abuse, in remission History of [id number] 09-30-2020 History of cataract extraction, unspecified laterality Family history of hypertension in mother Family history of Alzheimer's disease-Father Family history of other condition Encounter for screening mammogram for breast cancer Asymptomatic postmenopausal state [facility] Diagnosis Bilateral carotid artery stenosis-30% Right, 60% Left Occlusion and stenosis of multiple and bilateral precerebral arteries without mention of cerebral infarction [facility]* Diagnosis Esophageal dysmotility- Primary Dyskinesia of esophagus [facility]* Diagnosis Esophageal spasm Dyskinesia of esophagus [facility]* Diagnosis Wellness examination- Primary [facility] Diagnosis Encounter for screening mammogram for breast cancer [facility] Diagnosis Asymptomatic postmenopausal state [facility]* Diagnosis PAF (paroxysmal atrial fibrillation) (HCC)- Primary [facility]rial [facility] Depression, unspecified depression type- Primary Alcohol use disorder Chronic prescription benzodiazepine use Benzodiazepine withdrawal without complication (Multi) Nonspecific chest pain documented in this encounter [facility] Work Phone: Evaluation note* Diagnosis Type 2 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 disease, without long-term current use of insulin- Primary Idiopathic chronic gout without tophus, unspecified site Hypoproteinemia Other disorders of plasma protein metabolism Iron deficiency anemia, unspecified iron deficiency anemia type PVC's (premature ventricular contractions) Other premature beats Stage 3a chronic kidney disease B12 deficiency Other B-complex deficiencies Spondylosis of lumbar region without myelopathy or radiculopathy Lumbosacral spondylosis without myelopathy Spondylosis of cervical region without myelopathy or radiculopathy Cervical spondylosis without myelopathy Spinal stenosis of lumbar region without neurogenic claudication Spinal stenosis, lumbar region, without neurogenic claudication Chronic midline low back pain with left-sided sciatica Pulmonary emphysema, unspecified emphysema type PERCY on CPAP-Off BiPAP due to intolerance Obstructive sleep apnea (adult) (pediatric) Non-seasonal allergic rhinitis, unspecified trigger Hyperthyroidism Thyrotoxicosis without mention of goiter or other cause, without mention of thyrotoxic crisis or storm Moderate persistent asthma without complication Unspecified asthma Hiatal hernia Diaphragmatic hernia without mention of obstruction or gangrene Chronic sinusitis, unspecified location Folate deficiency Other B-complex deficiencies Chronic obstructive pulmonary disease, unspecified COPD type Presence of Watchman left atrial appendage closure device Paroxysmal atrial fibrillation Atrial fibrillation PAC (premature atrial contraction) Supraventricular premature beats Internal and external hemorrhoids without complication Internal hemorrhoids without mention of complication Hypertensive heart disease without heart failure Unspecified hypertensive heart disease without heart failure Essential hypertension Unspecified essential hypertension Orthostasis Orthostatic hypotension History of CVA (cerebrovascular accident)-ischemic Transient ischemic attack (TIA), and cerebral infarction without residual deficits Central retinal artery occlusion of left eye Central artery occlusion of retina Calcification of aorta Atherosclerosis of aorta Bradycardia Other specified cardiac dysrhythmias Bilateral carotid artery stenosis-30% Right, 60% Left Occlusion and stenosis of multiple and bilateral precerebral arteries without mention of cerebral infarction Atherosclerosis of abdominal aorta Atherosclerosis of aorta Vitamin D deficiency Unspecified vitamin D deficiency Hepatomegaly Gastroesophageal reflux disease without esophagitis Esophageal reflux Odynophagia Dysphagia, unspecified Fatty liver Other chronic nonalcoholic liver disease Esophagitis, Clyo grade A Esophageal stenosis Stricture and stenosis of esophagus Duodenal diverticulum Diverticulosis of small intestine (without mention of hemorrhage) Chronic gastritis without bleeding, unspecified gastritis type Hypomagnesemia Disorders of magnesium metabolism Hypertriglyceridemia Pure hyperglyceridemia Hyperlipidemia LDL goal <70 Other and unspecified hyperlipidemia Unspecified amblyopia, right eye Regular astigmatism of left eye Regular astigmatism Posterior capsular opacification non visually significant, both eyes-L>R Other after-cataract, not obscuring vision Pinguecula of both eyes Pinguecula PCO (posterior capsular opacification), left After-cataract, unspecified Other optic atrophy, left eye Hypermetropia of left eye Hypermetropia Combined forms of age-related cataract, bilateral Blepharitis of upper eyelids of both eyes, unspecified type Allergic conjunctivitis of both eyes Other chronic allergic conjunctivitis Blurred vision, bilateral Other specified visual disturbances Osteoarthritis of left knee, unspecified osteoarthritis type Primary osteoarthritis of both knees Primary localized osteoarthrosis, lower leg Primary osteoarthritis of both hips-Mild Primary localized osteoarthrosis, pelvic region and thigh Other idiopathic scoliosis, lumbar region Osteopenia determined by x-ray HNP (herniated nucleus pulposus), lumbar-Multi level Displacement of lumbar intervertebral disc without myelopathy Uterine leiomyoma, unspecified location Renal cyst, right Unspecified congenital cystic kidney disease Mixed stress and urge incontinence Left renal stone Seborrheic keratosis, inflamed-Left thigh-S/P Excision Inflamed seborrheic keratosis CLL (chronic lymphocytic leukemia) Chronic lymphoid leukemia, without mention of having achieved remission Macrocytosis Other specified diseases of blood and blood-forming organs Vision loss of left eye Unqualified visual loss, one eye Sacroiliitis Sacroiliitis, not elsewhere classified Pseudophakia of both eyes Lens replaced by other means Presbyopia Obesity (BMI 30.0-34.9) Obesity, unspecified Myopia of right eye Myopia Low HDL (under 40) Lipoprotein deficiencies Irregular astigmatism of right eye Irregular astigmatism Insomnia, unspecified type Hyponatremia Hyposmolality and/or hyponatremia Fatty food intolerance Other specified intestinal malabsorption Former smoker-Quit 2011 Personal history of tobacco use, presenting hazards to health Fatigue, unspecified type Episodic lightheadedness Dizziness and giddiness Elevated LFTs Other abnormal blood chemistry Chronic anticoagulation Encounter for long-term (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 of anticoagulants 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 Profound impairment, one eye, Impairment level not further specified Bilateral dry eyes Tear film insufficiency, unspecified ASCUS of cervix with negative high risk HPV Anxiety and depression Dysthymic disorder Family history of Alzheimer's disease-Father Family history of other condition Family history of hypertension in mother History of cataract extraction, unspecified laterality History of [id number] 09-30-2020 History of ETOH abuse Nondependent alcohol abuse, in remission S/P total knee arthroplasty, right S/P unilateral salpingo-oophorectomy Acquired absence of organ, genital organs [facility] Diagnosis Spondylosis of lumbar region without myelopathy or radiculopathy Lumbosacral spondylosis without myelopathy [facility] Diagnosis Open wound of fourth toe of left foot, sequela- Primary Recurrent infections Unspecified infectious and parasitic diseases Open wound of fourth toe of left foot, sequela [facility] Diagnosis Open wound of fourth toe of left foot, sequela [facility]* Diagnosis After-cataract obscuring vision, right- Primary Pseudophakia of both eyes Lens replaced by other means Central retinal artery occlusion, left eye Central artery occlusion of retina 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, unspecified [facility] Diagnosis Toe pain, left- Primary Pain in limb [facility] Diagnosis Toe pain, left Pain in limb documented [facility]* Diagnosis Spinal stenosis, lumbar region, with neurogenic claudication- Primary Cluneal neuropathy Other low back pain Encounter for medication monitoring Encounter for therapeutic drug monitoring documented [facility]* Diagnosis Status post eye surgery- Primary Other states following surgery of eye and adnexa Pseudophakia of both eyes Lens replaced by other means Central retinal artery occlusion, left eye Central artery occlusion of retina 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, unspecified [facility]* Diagnosis Skin ulcer of fourth toe of left foot, limited to breakdown of skin- Primary Plantar fasciitis Plantar fascial fibromatosis Pain of left foot Pain in limb [facility]* Diagnosis Spinal stenosis, lumbar region, with neurogenic claudication Cluneal neuropathy Other low back pain [facility] Diagnosis Spondylosis without myelopathy or radiculopathy, lumbar region [facility] Diagnosis Skin ulcer of fourth toe of left foot, limited to breakdown of skin [facility] Diagnosis Skin ulcer of fourth toe of left foot, limited to breakdown of skin- Primary Plantar fasciitis Plantar fascial fibromatosis Pain of left foot Pain in limb [facility] Diagnosis Strain of thoracic paraspinal muscles excluding T1 and T2 levels, initial encounter- Primary Spinal stenosis, lumbar region, with neurogenic claudication Cluneal neuropathy Other low back pain Myofascial pain Mylagia and myositis, unspecified Right-sided thoracic back pain, unspecified chronicity [facility] Diagnosis Cluneal neuropathy- Primary Myofascial pain Mylagia and myositis, unspecified Lumbar spondylosis Lumbosacral spondylosis without myelopathy Spinal stenosis, lumbar region, with neurogenic claudication [facility] NarrativePatient confirmed name and date of . Reviewed TrA contraction with patient, good contraction noted with palpation with no noted compensation. Fair trunk stability with UE/LE exercises, encouraged patient to increase tulio of movement but patient continued with slow to moderate tulio to keep trunk stable. Abolished pain and LE sx with unloading. [facility] Work Phone: History of Present illness NarrativePatient tolerated treatment without increased pain. Patient has Fair TrA and keeps intact with ther-ex. Patient needing one UE support with LE ther-ex and no support with 100% unloading. Patient has good form/understanding with ther-ex and keeps body in good alignment. Added DB rolls to program. Continue with core stability while performing dyn activity to decrease back pain. [facility] Work Phone: History of Present illness NarrativePatient confirmed name and date of . Patient demonstrated fair trunk control with UE/LE paddles, able to increase tulio with while maintaining control. Added UE kick board today, patient required cues to keep trunk flexion. Cues to maintain good posture with unloading.[facility] Work Phone: history of Present illness NarrativePatient tolerated treatment without increased pain. Patient has Fair Tra and keeps intact with ther-ex. Patient needing one UE support with LE ther-ex and no support with 100% unloading. Patient has good form/understanding with ther-ex and keeps body in good alignment. Continue with core stability while performing dyn activity to decrease back pain.[facility] Work Phone: history [facility] Present [facility] Narrativepatient tolerated treatment without pain today. Patient has Fair Tra and keeps intact with ther-ex.Patient needing one UE support with LE ther-ex and no support with 100% unloading. patient has goodform/understanding with ther-ex and keeps body in good alignment. Continue with core stability while performing dyn activity to decrease back pain.[facility] Work Phone: history of Present illness Narrative* Pt. had mild discomfort with standing anti rotations rating her pain 2/10 but overall was able to tolerate everything else very well. Pt. will need to continue working on LE flexibility, strengthening of the core and LE. Pt. educated to complete HS stretch as she was significantly limited. * Response to treatment: improved joint mobility/ROM, improved strength and improved knowledge and understanding of condition. * Patient was able to complete today's treatment with some difficulty. [facility] Work Phone: Hisbyob of Present illness Narrative* The pt has made good progress in PT and has MET or PARTIALLY MET all of her PT goals. The pt has improved her core/LE strength and lumbar ROM/flexibility over the course of PT. The pt is I with her HEP and will continue with her ex's on her own at this time. DC PT at this time. * Response to treatment: improved strength. [facility] Work Phone: history of Present [facility] NarrativePatient confirmed name and date of . Patient able to progress reps without difficulty. Fair trunk control noted with UE/LE exercises, moderate cues to keep TrA engaged and to keep trunk from flexion. Added squats today with cues for good form and TrA contraction. Pain relief with unloading. [facility] Work Phone: History of Present illness NarrativePatient confirmed name and date of . Patient able to progress reps of respective exercises with good endurance while maintaining fair trunk control. Added Step taps and Step ups today with patient demonstrating poor trunk control at first, improvement noted as reps progresses. No increase in SI joint pain with aquatic exercises. [facility] Work Phone: History of Present illness NarrativePatient confirmed name and date of . Patient shows improved TrA contraction with UE/LE exercises. Hip abduction performed in small range of motion with quick motion to improve SI joint stabilityand reduce joint irritation. Some SI irritation noted with Step Ups, cues to keep TrA intact. [facility] Work Phone: Hospital Discharge instructions* Attachments The following attachments cannot be sent through Care Everywhere. * [facility] AMB SMOKING CESSATION LINKS [facility]* Attachments The following attachments cannot be sent through Care Everywhere. * Abscess: Skin ([place]) * Cellulitis ([place]) [facility] in this [facility])* Consultation (Routine) - New Request Specialty Diagnoses / Procedures Referred By Alonzo houston Referred To Contact Sleep Medicine Diagnoses PERCY on CPAP Fernie Paredes DO [address] [facility] [address] [place] [address] Jaswinder Mcginnis MD [address] [place] [id number] Referral ID Status Reason Start Date Expiration Date V isits Requested Visits Authorized [id number] New Request 03/23/2022 04/17/2023 1 1 [facility] for referral (narrative)* Diagnostic Procedure Only (Routine) - Authorized Specialty Diagnoses / Procedures Referred By Alonzo houston Referred To Contact [facility] Diagnoses PERCY (obstructive sleep apnea) Procedures HOME SLEEP APNEA TEST (HSAT) SLEEP STD AIRFLOW HRT RATE&O2 SAT EFFORT UNATT Eddi Randhawa MD [address] [place] [address] Neurological Brush [address] [place] [address] Referral ID Status Reason Start Date Expiration Date Visits Requested Visits Authorized [id number] Authorized Auto-Generat ed Referral 09/28/2022 09/28/2023 1 1 [facility] for referral (narrative)* Diagnostic Procedure Only (Routine) - Pending Review Specialty Diagnoses / Procedures Referred By Contact Referred To Contact MOLECULAR & FUNCTIONAL IMAGING Diagnoses PAF (paroxysmal atrial fibrillation) (HCC) Procedures NM CARDIAC PERF STRESS/PHARM MYOCARDIAL SPECT MULTIPLE STUDIES Laya Barillas, LINTER OPERATOR.RESIDENTIAL CARE OFFICER [address] [address] Molecular & Functional Imaging [address] [place] [address] Referral ID Status Reason Start Date Expiration Date Visits Requested Visits Authorized [id number] Pending Review Auto-Generat ed Referral 11/17/2022 12/17/2023 1 1 [facility] for referral (narrative)* Consultation (Urgent) - New Request Specialty Diagnoses / Procedures Referred By Contac t Referred To Contact Podiatry Diagnoses Toe infection Shae Whittington, LINTER OPERATOR-RESIDENTIAL CARE OFFICER [address] [place] [address] Dawn Uriarte, DPArtem [address] [place] [address] Referral ID Status Reason Start Date Expiration Date V isits Requested Visits Authorized [id number] New Request 04/21/2023 05/15/2024 1 1 [facility] for referral (narrative)* Consultation (Routine) - New Request Specialty Diagnoses / Procedures Referred By Contac t Referred To Contact Chemotherapy Diagnoses Cellulitis of other specified site Open wound of fourth toe of left foot, sequela Recurrent infections Monse Shipley MD [address] [place] [address] [place] [address] Referral ID Status Reason Start Date Expiration Date V isits Requested Visits Authorized [id number] New Request 07/22/2023 08/15/2024 1 1 * (Routine) - New Request Specialty Diagnoses / Procedures Referred By Contac t Referred To Contact Diagnoses Cellulitis of other specified site Open wound of fourth toe of left foot, sequela Procedures PICC LINE PLACEMENT/REMOVAL Monse Shipley MD [address] [place], [place] [id number] Referral ID Status Reason Start Date Expiration Date V isits Requested Visits Authorized [id number] New Request 07/22/2023 08/15/2024 1 1 [facility] for referral (narrative)* Consultation (Routine) - New Request Specialty Diagnoses / Procedures Referred By Contac t Referred To Contact Neurologic Surgery Diagnoses Osteoarthritis of right sacroiliac joint Pain of right sacroiliac joint Sacroiliitis Garry Stephens MD [address] [place] [address] Isreal Sigala MD [address] [place] [address] Referral ID Status Reason Start Date Expiration Date V isits Requested Visits Authorized [id number] New Request 01/10/2024 02/03/2025 1 1 * Radiology (Routine) - New Request Specialty Diagnoses / Procedures Referred By Contac t Referred To Contact Diagnoses Osteoarthritis of right sacroiliac joint Pain of right sacroiliac joint Procedures US IMAGING FOR ORTHO Garry Stephens MD [address] [place] [address] [place] [address] Referral ID Status Reason Start Date Expiration Date V isits Requested Visits Authorized [id number] New Request 01/10/2024 02/03/2025 1 1 [facility] for referral (narrative)* (Routine) Specialty Diagnoses / Procedures Referred By Contac t Referred To Contact [facility] RE[facility] LOC [address] [place] [phone] Referral ID Status Reason Start Date Expiration Date Visits Re quested Visits Authorized [facility] for referral (narrative)* (Routine) Specialty Diagnoses / Procedures Referred By Contac t Referred To Contact [facility] RE[facility] LOC [address] [place] [address] Referral ID Status Reason Start Date Expiration Date Visits Re quested Visits Authorized * Adjunctive Therapy (Routine) - New Request Specialty Diagnoses / Procedures Referred By Contac t Referred To Contact Diagnoses Acute postoperative pain of left knee Sonido Castaneda APRN-CNP [address] [place] [address] Referral ID Status Reason Start Date Expiration Date V isits Requested Visits Authorized [id number] New Request 11/12/2024 12/07/2025 1 1 Scheduling Instructions . [facility] for visit Narrative* Auth/Cert Specialty Diagnoses / Procedures Referred By Contac t Referred To Contact Diagnoses Sacroiliitis Sacroiliitis [M46.1] Procedures MA ARTHRODESIS SACROILIAC JOINT PERCUTANEOUS CHG FLUOR NEEDLE/CATH SPINE/PARASPINAL DX/THER ADDON ARTHRODESIS SACROILIAC JOINT MINIMALLY INVASIVE GUIDANCE FLUOROSCOPIC NEEDLE OR CATHETER PLACEMENT FOR SPINE INJECTION ADD-ON PX Isreal Sigala MD [address] [place] [address] Referral ID Status Reason Start Date Expiration Date Visits Re quested Visits Authorized [id number] 06/10/2022 1 [facility] Initial Evaluation. * [facility] Work Phone: reason for visit Narrative* Auth/Cert Specialty Diagnoses / Procedures Referred By [facility] Referred To Contact Diagnoses Other spondylosis with radiculopathy, lumbar region Other spondylosis with radiculopathy, lumbar region [M47.26] Procedures MA INJECTION AA&/STRD OTHER PERIPHERAL NERVE/BRANCH CHG FLUOR NEEDLE/CATH SPINE/PARASPINAL DX/THER ADDON INJECTION NERVE OTHER PERIPHERAL GUIDANCE FLUOROSCOPIC NEEDLE OR CATHETER PLACEMENT FOR SPINE INJECTION ADD-ON PX Isreal Sigala MD [address] [place] [address] Referral ID Status Reason Start Date Expiration Date Visits Re quested Visits Authorized [id number] 12/08/2022 1 1 [facility] N[facility]* Initial Evaluation . sacroilitis. * Referred by: Bebo [facility] Work Phone: reason for visit Narrative* Auth/Cert Specialty Diagnoses / Procedures Referred By [facility] Referred To Contact Diagnoses Osteoarthritis of left knee, unspecified osteoarthritis type Osteoarthritis of left knee, unspecified osteoarthritis type [M17.12] Procedures MA ARTHRP KNE CONDYLE&PLATU MEDIAL&LAT COMPARTMENTS ARTHROPLASTY KNEE TOTAL Gonsalo Blackwood MD [address] [place] [address] [employer] Referral ID Status Reason Start Date Expiration Date Visits Re quested Visits Authorized [id number] 1 1 [facility] N[facility]* Diagnostic X-Ray (Routine) - New Request Specialty Diagnoses / Procedures Referred By [facility] Referred To Contact Diagnoses History of total knee arthroplasty, left Procedures XR KNEE LEFT 3 VIEWS Shi Son [address] [place] [address] Phone: tel: fax: Referral ID Status Reason Start Date Expiration Date V isits Requested Visits Authorized [id number] New Request 12/03/2024 12/28/2025 1 1 [facility]* Radiology (Emergency) - Closed Specialty Diagnoses / Procedures Referred By Contac t Referred To Contact Diagnoses History of total knee arthroplasty, left Pain of left calf Calf swelling Procedures US DUPLEX EXTREMITY DVT LEFT Shi Son [address] [place] [address] Phone: tel: fax: Referral ID Status Reason Start Date Expiration Date Visits Re quested Visits Authorized [id number] Closed 12/05/2024 12/30/2025 1 1 [facility] Radiology (Routine) - Closed Specialty Diagnoses / Procedures Referred By Contac t Referred To Contact Diagnoses Bilateral carotid artery stenosis Procedures VASC DUPLEX CAROTID BILATERAL MA DUPLEX SCAN EXTRACRANIAL ART COMPL BI STUDY Fernie Paredes DO [address] [address] Phone: tel: fax: Referral ID Status Reason Start Date Expiration Date Visits Re quested Visits Authorized [id number] Closed 12/31/2024 2026 1 1 [facility] Radiology (Routine) - Closed Specialty Diagnoses / Procedures Referred By Contac t Referred To Contact Diagnoses Esophageal dysmotility Procedures MANOMETRY ESOPHAGEAL MA ESOPHAGEAL MOTILITY STUDY W/INTERP&RPT Delilah Ellis Jr., DO [address] [place] [address] Phone: tel: fax: Referral ID Status Reason Start Date Expiration Date Visits Re quested Visits Authorized [id number] Closed 01/01/2025 01/26/2026 1 1 [facility] Radiology (Routine) - Closed Specialty Diagnoses / Procedures Referred By Contac t Referred To Contact Diagnoses Encounter for screening mammogram for breast cancer Procedures MAMMO SCREENING WITH ALEXANDER BILATERAL Fernie Paredes DO [address] [facility] [address] [place] [address] Phone: tel: fax: Referral ID Status Reason Start Date Expiration Date Visits Re quested Visits Authorized [id number] Closed 12/31/2024 2026 1 1 [facility] Radiology (Routine) - Closed Specialty Diagnoses / Procedures Referred By Contac t Referred To Contact Diagnoses Asymptomatic postmenopausal state Procedures BONE DENSITY AXIAL (HIP, PELVIS, SPINE) Fernie Paredes, DO [address] [facility] [address] [place] [address] Phone: tel: fax: Referral ID Status Reason Start Date Expiration Date Visits Re quested Visits Authorized [id number] Closed 12/31/2024 2026 1 1 [email or web address]* MRI/CAT Scan (Routine) - Closed Specialty Diagnoses / Procedures Referred By Contac t Referred To Contact Diagnoses Spinal stenosis, lumbar region, with neurogenic claudication Cluneal neuropathy Other low back pain Procedures MRI SPINE LUMBAR WITHOUT CONTRAST CHG MRI SPINAL CANAL LUMBAR W/O CONTRAST MATERIAL Katina William, LINTER OPERATOR-RESIDENTIAL CARE OFFICER Phone: tel: fax: Referral ID Status Reason Start Date Expiration Date Visits Re quested Visits Authorized [id number] Closed 05/20/2025 06/14/2026 1 1 [email or web address]* MRI/CAT Scan (Routine) - Closed Specialty Diagnoses / Procedures Referred By Contac t Referred To Contact Diagnoses Spondylosis without myelopathy or radiculopathy, lumbar region Procedures CT SPINE LUMBAR WITHOUT CONTRAST CHG CT LUMBAR SPINE W/O CONTRAST MATERIAL Isreal Sigala MD [address] [place] [address] Phone: tel: fax: [facility] [address] [place] [id number] Referral ID Status Reason Start Date Expiration Date Visits Re quested Visits Authorized [id number] Closed 05/07/2025 06/01/2026 1 1 [facility]/CAT Scan (Routine) - Closed Specialty Diagnoses / Procedures Referred By Alonzo t Referred To Contact Diagnoses Skin ulcer of fourth toe of left foot, limited to breakdown of skin Procedures MRI FOOT LEFT WITHOUT CONTRAST CHG MRI LOWER EXTREM OTH/THN JT W/O CONTR Dawn Guillory DPM Phone: tel: fax: Referral ID Status Reason Start Date Expiration Date Visits Re quested Visits Authorized [id number] Closed 05/30/2025 06/24/2026 1 1 [facility] Family History No Family History Records FoundUnknown Family Member Name Dates Details Family Members In General Comments:Anxiety Disorder, M ajor Depression Status:Active Instructions Name Dates Details How to access health informa tion online Indication:Tobacco abuse, in remission (Renamed from Tobacco dependence in remission) Start:10-Jun-2017 Instruction Type:Patient Education How to access health informa tion online - Detail Indication:Tobacco abuse, in remission (Renamed from Tobacco dependence in remission) Start:10-Jun-2017 Instruction Type:Patient Education Patient Instructions Indication:Tobacco abuse, in remission (Renamed from Tobacco dependence in remission) Start:10-Jun-2017 Instruction Type:Provider Instructions for Treatment How to access health informa tion online Indication:Impaired Fasting Glucose (Renamed from Elevated fasting blood sugar) Start:12-Apr-2016 Instruction Type:Patient Education How to access health informa tion online - Detail Indication:Impaired Fasting Glucose (Renamed from Elevated fasting blood sugar) Start:12-Apr-2016 Instruction Type:Patient Education Patient Instructions Indication:Impaired Fasting Glucose (Renamed from Elevated fasting blood sugar) Start:12-Apr-2016 Instruction Type:Provider Instructions for Treatment How to access health informa tion online Indication:Depression Start:04-Dec-2015 Instruction Type:Patient Education How to access health informa tion online - Detail Indication:Depression Start:04-Dec-2015 Instruction Type:Patient Education Patient Instructions Indication:Depression Start:04-Dec-2015 Instruction Type:Provider Instructions for Treatment How to access health informa tion online Indication:Hypertension Start:22-Oct-2014 Instruction Type:Patient Education How to access health informa tion online - Detail Indication:Hypertension Start:22-Oct-2014 Instruction Type:Patient Education Patient Instructions Indication:Hypertension Start:22-Oct-2014 Instruction Type:Provider Instructions for Treatment How to access 2d2c online - Detail Indication:Hyperlipidemia Start:29-Apr-2014 Instruction Type:Patient Education Patient Instructions Indication:Hyperlipidemia Start:29-Apr-2014 Instruction Type:Provider Instructions for Treatment Patient Instructions Indication:Obesity, unspecified Start:28-Sep-2013 Instruction Type:Provider Instructions for Treatment Patient Instructions Indication:Nausea & vomiting Start:03-Sep-2013 Instruction Type:Provider Instructions for Treatment Patient Instructions Indication:Hypertension Start:01-Mar-2013 Instruction Type:Provider Instructions for Treatment Patient Instructions Indication:Sore throat Start:23-Feb-2013 Instruction Type:Provider Instructions for Treatment Summary Purpose Advance Directives No Advanced Directives Records FoundDocuments on File Type Date Recorded 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 Advance Directives and Livin g Will 02/13/2021 3:42 PM Latest Code Status on File Code Status Date Activated Date Inactivated Comments Full Code 06/17/2022 10:43 AM Latest Code Status on File Code Status Date Activated Date Inactivated Comments Full Code 06/17/2022 10:43 AM Latest Code Status on File Code Status Date Activated Date Inactivated Comments Full Code 06/17/2022 10:43 AM Latest Code Status on File Code Status Date Activated Date Inactivated Comments Full Code 06/17/2022 10:43 AM Latest Code Status on File Code Status Date Activated Date Inactivated Comments Full Code 08/31/2022 5:57 AM Code Status History Code Status Date Activated Date Inactivated Comments Full Code 06/17/2022 10:43 AM 08/31/2022 5:57 AM Latest Code Status on File Code Status Date Activated Date Inactivated Comments Full Code 08/31/2022 5:57 AM Code Status History Code Status Date Activated Date Inactivated Comments Full Code 06/17/2022 10:43 AM 08/31/2022 5:57 AM Latest Code Status on File Code Status Date Activated Date Inactivated Comments Full Code 10/31/2022 12:21 AM Full Code Order Discussed With: Patient Latest Code Status on File Code Status Date Activated Date Inactivated Comments Full Code 10/31/2022 12:21 AM 11/02/2022 5:20 PM Latest Code Status on File Code Status Date Activated Date Inactivated Comments Full Code 10/31/2022 12:21 AM 11/02/2022 5:20 PM Latest Code Status on File Code Status Date Activated Date Inactivated Comments Full Code 10/31/2022 12:21 AM 11/02/2022 5:20 PM Question Answer Comments Full Code Order Discussed With: Patient Latest Code Status on File Code Status Date Activated Date Inactivated Comments Full Code 10/31/2022 12:21 AM 11/02/2022 5:20 PM Question Answer Comments Full Code Order Discussed With: Patient Advance Directive Response Recorded Date/ Time Advance Directives No February 03 12:50pm Living Will No February 04, 2016 12:50pm Power of Protection Agent No February 03 12:50pm Advance Directive Response Recorded Date/ Time Advance Directives No February 03 11:50am Living Will No February 04, 2016 11:50am Power of Protection Agent No February 03 11:50am Latest Code Status on File Code Status Date Activated Date Inactivated Comments Full Code 11/24/2023 8:29 AM Code Status History Code Status Date Activated Date Inactivated Comments Full Code 11/24/2023 6:18 AM 11/24/2023 8:29 AM Latest Code Status on File Code Status Date Activated Date Inactivated Comments Full Code 11/24/2023 8:29 AM 11/24/2023 8:34 PM Code Status History Code Status Date Activated Date Inactivated Comments Full Code 11/24/2023 6:18 AM 11/24/2023 8:29 AM Date Activated Date Inactivated Comments 08/31/2022 5:57 AM Date Activated Date Inactivated Comments 06/17/2022 10:43 AM 08/31/2022 5:57 AM Date Activated Date Inactivated Comments 08/31/2022 5:57 AM Date Activated Date Inactivated Comments 06/17/2022 10:43 AM 08/31/2022 5:57 AM Date Activated Date Inactivated Comments 05/03/2024 2:11 PM Date Activated Date Inactivated Comments 08/31/2022 5:57 AM 05/03/2024 2:11 PM Date Activated Date Inactivated Comments 06/17/2022 10:43 AM 08/31/2022 5:57 AM Date Activated Date Inactivated Comments 05/03/2024 2:11 PM Date Activated Date Inactivated Comments 08/31/2022 5:57 AM 05/03/2024 2:11 PM Date Activated Date Inactivated Comments 06/17/2022 10:43 AM 08/31/2022 5:57 AM Date Activated Date Inactivated Comments 11/24/2023 8:29 AM 11/24/2023 8:34 PM Date Activated Date Inactivated Comments 11/24/2023 6:18 AM 11/24/2023 8:29 AM Date Activated Date Inactivated Comments 10/31/2022 12:21 AM 11/02/2022 5:20 PM Question Answer Comments Full Code Order Discussed With: Patient Date Activated Date Inactivated Comments 11/12/2024 1:45 PM Date Activated Date Inactivated Comments 05/03/2024 2:11 PM 11/12/2024 1:45 PM Date Activated Date Inactivated Comments 08/31/2022 5:57 AM 05/03/2024 2:11 PM Date Activated Date Inactivated Comments 06/17/2022 10:43 AM 08/31/2022 5:57 AM Date Activated Date Inactivated Comments 11/12/2024 1:45 PM Date Activated Date Inactivated Comments 05/03/2024 2:11 PM 11/12/2024 1:45 PM Date Activated Date Inactivated Comments 08/31/2022 5:57 AM 05/03/2024 2:11 PM Date Activated Date Inactivated Comments 06/17/2022 10:43 AM 08/31/2022 5:57 AM Reason for Referral Specialty Diagnoses / Procedures Referred By Contac t Referred To Contact Fernie Paredes, [address] [place] [address] Referral ID Status Reason Start Date Expiration Date V isits Requested Visits Authorized [id number] Pending Review 1 1 Specialty Diagnoses / Procedures Referred By Contac t Referred To Contact Diagnoses Sacroiliitis Procedures XR SPINE LUMBAR W BENDING Isreal Sigala MD [address] [place] [address] [facility] Referral ID Status Reason Start Date Expiration Date V isits Requested Visits Authorized [id number] New Request 10/12/2022 11/06/2023 1 1 Referral ID Status Reason Start Date Expiration Date V isits Requested Visits Authorized [id number] Pending Review 1 1 Specialty Diagnoses / Procedures Referred By Contac t Referred To Contact Neurology Diagnoses Central retinal artery occlusion of left eye Cerebrovascular accident (CVA), unspecified mechanism Fernie Paredes DO [address] [place] [address] [address] [place] [address] Burak Oliva MD [address] [place] [address] Referral ID Status Reason Start Date Expiration Date V isits Requested Visits Authorized [id number] New Request 11/22/2022 12/17/2023 1 1 Specialty Diagnoses / Procedures Referred By Contac t Referred To Contact Dentistry Diagnoses PERCY (obstructive sleep apnea) Procedures CONSULT TO DENTISTRY OFFICE/OUTPATIENT [facility] MDM 60-74 MINUTES Eddi Randhawa MD [address] [place] [address] Referral ID Status Reason Start Date Expiration Date Visits Requested Visits Authorized [id number] Pending Review PCP Requested Referral 11/24/2022 11/24/2023 1 1 Specialty Diagnoses / Procedures Referred By Contac t Referred To Contact Mammography Diagnoses Encounter for screening mammogram for malignant neoplasm of breast Procedures MAMMO SCREENING WITH ALEXANDER BILATERAL 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, LINTER OPERATOR-RESIDENTIAL CARE OFFICER [id number] [place] [address] [facility] [address] [place] [address] Referral ID Status Reason Start Date Expiration Date Visits Re quested Visits Authorized [id number] Closed 02/02/2022 02/27/2023 1 1 Specialty Diagnoses / Procedures Referred By Contac t Referred To Contact Bone Densitometry Diagnoses Asymptomatic postmenopausal state Procedures BONE DENSITY AXIAL (HIP, PELVIS, SPINE) Fernie Paredes DO [address] [place] [address] [facility] [address] [place] [address] Referral ID Status Reason Start Date Expiration Date Visits Re quested Visits Authorized [id number] Closed 02/14/2023 03/10/2024 1 1 Specialty Diagnoses / Procedures Referred By Contac t Referred To Contact Diagnoses Preop testing Procedures ECG Gonsalo Blackwood MD [address] [place] [address] Referral ID Status Reason Start Date Expiration Date V isits Requested Visits Authorized [id number] New Request 04/04/2023 04/28/2024 1 1 Specialty Diagnoses / Procedures Referred By Contac t Referred To Contact Diagnoses Stage 3a chronic kidney disease Procedures US ABDOMEN RUQ/LIVER/GB Fernando Davison MD [address] [place] [address] Referral ID Status Reason Start Date Expiration Date V isits Requested Visits Authorized [id number] New Request 04/27/2023 05/21/2024 1 1 Specialty Diagnoses / Procedures Referred By Contac t Referred To Contact Diagnoses Cellulitis and abscess of toe of left foot Procedures MRI FOOT LEFT WITHOUT CONTRAST MA MRI, LOWER EXTREM Dawn Uriarte, DPM [address] [place] [address] Referral ID Status Reason Start Date Expiration Date V isits Requested Visits Authorized [id number] Auth Not Needed 05/05/2023 05/29/2024 1 1 Referral ID Status Reason Start Date Expiration Date Visits Re quested Visits Authorized [id number] Closed 05/10/2023 06/03/2024 1 1 Specialty Diagnoses / Procedures Referred By Contac t Referred To Contact Diagnoses Cellulitis and abscess of toe of left foot Procedures XR FOOT LEFT 3 VIEWS Dawn Uriarte, DPM [address] [place] [address] Referral ID Status Reason Start Date Expiration Date V isits Requested Visits Authorized [id number] New Request 06/14/2023 07/08/2024 1 1 Specialty Diagnoses / Procedures Referred By Contac t Referred To Contact Magnetic Resonance Imaging Diagnoses Lumbar spondylosis Procedures MRI SPINE LUMBAR WITHOUT CONTRAST MA MRI, LUMBAR SPINE Isreal Sigala MD [address] [address] [facility] [address] [place] [address] Referral ID Status Reason Start Date Expiration Date Visits Re quested Visits Authorized [id number] Closed 06/07/2023 07/01/2024 1 1 Specialty Diagnoses / Procedures Referred By Contac t Referred To Contact Diagnoses Urinary incontinence, unspecified type Dysuria Procedures URODYNAMICS Dariusz Rangel MD [address] [place] [address] Referral ID Status Reason Start Date Expiration Date Visits Re quested Visits Authorized [id number] Closed 06/01/2022 06/26/2023 1 1 Specialty Diagnoses / Procedures Referred By Contac t Referred To Contact Magnetic Resonance Imaging Diagnoses Cellulitis and abscess of toe of left foot Procedures MRI FOOT LEFT WITHOUT CONTRAST MA MRI, LOWER EXTREM Dawn Uriarte DPM [address] [place] [address] [facility] [address] [place] [address] Referral ID Status Reason Start Date Expiration Date V isits Requested Visits Authorized [id number] Auth Not Needed 06/28/2023 07/22/2024 1 1 Specialty Diagnoses / Procedures Referred By Contac t Referred To Contact Infectious Diseases Diagnoses Cellulitis and abscess of toe of left foot Dawn Uriarte DPM [address] [place] [address] Monse Shipley MD [address] [place] [address] Referral ID Status Reason Start Date Expiration Date V isits Requested Visits Authorized [id number] New Request 06/28/2023 07/22/2024 1 1 Referral ID Status Reason Start Date Expiration Date V isits Requested Visits Authorized [id number] New Request 07/21/2023 08/14/2024 1 1 Specialty Diagnoses / Procedures Referred By Contac t Referred To Contact Magnetic Resonance Imaging Diagnoses Cellulitis and abscess of toe of left foot Skin ulcer of fourth toe of left foot with fat layer exposed Procedures MRI FOOT LEFT WITHOUT CONTRAST MA MRI, LOWER EXTREM Dawn Uriarte, DPM [address] [place] [address] [facility]ri [address] [place] [address] Referral ID Status Reason Start Date Expiration Date V isits Requested Visits Authorized [id number] Auth Not Needed 07/28/2023 08/21/2024 1 1 Specialty Diagnoses / Procedures Referred By Contac t Referred To Contact Diagnoses Osteoarthritis of right sacroiliac joint Pain of right sacroiliac joint Procedures US IMAGING FOR ORTHO Garry Stephens MD [address] [place] [address] Referral ID Status Reason Start Date Expiration Date V isits Requested Visits Authorized [id number] New Request 09/26/2023 10/20/2024 1 1 Specialty Diagnoses / Procedures Referred By Contac t Referred To Contact Diagnoses LUQ abdominal pain Procedures CT ABDOMEN/PELVIS WITH CONTRAST CHG CT SCAN,ABDOMENT AND PELVIS,W CONTRAST Naty Bhakta MD [address] [facility] [address] [place] [address] Referral ID Status Reason Start Date Expiration Date V isits Requested Visits Authorized [id number] New Request 09/21/2023 10/15/2024 1 1 Specialty Diagnoses / Procedures Referred By Contac t Referred To Contact Cardiology Diagnoses Atrial fibrillation, unspecified type (HCC) Procedures ECG 12 lead Kandice Christie MD [address] [place] [address] Referral ID Status Reason Start Date Expiration Date V isits Requested Visits Authorized [id number] Authorized 11/08/2023 11/07/2024 1 1 Specialty Diagnoses / Procedures Referred By Contac t Referred To Contact Radiology Diagnoses Atrial fibrillation, unspecified type (HCC) Procedures CT MARY LOU (Left Atrial Appendage) CCTA With and Without Contrast Kandice Christie MD [address] [place] [address] Referral ID Status Reason Start Date Expiration Date V isits Requested Visits Authorized [id number] Authorized 11/08/2023 11/07/2024 1 1 Specialty Diagnoses / Procedures Referred By Contac t Referred To Contact Radiology Diagnoses Atrial fibrillation, unspecified type (HCC) Procedures CT Pulmonary Vein With Reconstructions 3D Kandice Christie MD [address] [place] [address] Referral ID Status Reason Start Date Expiration Date V isits Requested Visits Authorized [id number] Authorized 05/24/2024 05/24/2025 1 1 Specialty Diagnoses / Procedures Referred By Contac t Referred To Contact Diagnoses Encounter for screening mammogram for malignant neoplasm of breast Procedures MAMMO SCREENING WITH ALEXANDER BILATERAL 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, LINTER OPERATOR-RESIDENTIAL CARE OFFICER [address] [address] Referral ID Status Reason Start Date Expiration Date Visits Re quested Visits Authorized [id number] Closed 02/03/2023 02/28/2024 1 1 Specialty Diagnoses / Procedures Referred By Contac t Referred To Contact Diagnoses Sacroiliitis, not elsewhere classified Procedures CT PELVIS WITHOUT CONTRAST MA CT SCAN,PELVIS,W/O CONTRAST Isreal Sigala MD [address] [facility] [address] [place] [address] Referral ID Status Reason Start Date Expiration Date Visits Re quested Visits Authorized [id number] Closed 02/15/2024 03/11/2025 1 1 Specialty Diagnoses / Procedures Referred By Contac t Referred To Contact Diagnoses Abnormal thyroid stimulating hormone (TSH) level Dysphagia, unspecified type Hyperthyroidism Procedures US THYROID Aviva Mera, RESIDENTIAL CARE OFFICER [address] [place] [address] Referral ID Status Reason Start Date Expiration Date V isits Requested Visits Authorized [id number] New Request 03/12/2024 04/06/2025 1 1 Referral ID Status Reason Start Date Expiration Date Visits Re quested Visits Authorized [id number] Closed 03/12/2024 04/06/2025 1 1 Specialty Diagnoses / Procedures Referred By Contac t Referred To Contact Diagnoses Left knee pain, unspecified chronicity Procedures XR KNEE LEFT 4+ VIEWS Gonsalo Blackwood MD [address] [place] [address] Referral ID Status Reason Start Date Expiration Date V isits Requested Visits Authorized [id number] New Request 08/20/2024 09/14/2025 1 1 Specialty Diagnoses / Procedures Referred By Contac t Referred To Contact Diagnoses Dysphagia, unspecified type Iron deficiency anemia, unspecified iron deficiency anemia type Procedures DIAGNOSTIC UPPER ENDOSCOPY MA ESOPHAGOGASTRODUODENOSCOPY TRANSORAL DIAGNOSTIC Delilah Ellis Jr., DO [address] [place] [address] Referral ID Status Reason Start Date Expiration Date Visits Re quested Visits Authorized [id number] Closed 10/23/2024 11/17/2025 1 1 Specialty Diagnoses / Procedures Referred By Contac t Referred To Contact Diagnoses Dysphagia, unspecified type Iron deficiency anemia, unspecified iron deficiency anemia type Procedures XR FLUORO MODIFIED BARIUM SWALLOW WITH SPEECH Delilah Ellis Jr., DO [address] [place] [address] Referral ID Status Reason Start Date Expiration Date Visits Re quested Visits Authorized [id number] Closed 10/23/2024 11/17/2025 2 2 Health Concerns Infection Onset Date Last Indicated Resolved Time COVID-19 Rule-Out 10/30/2022 10/30/2022 10/30/2022 5:15 PM EST Chief Complaint and Reason for Visit Chief Complaint Ertapenem Chief Complaint Ertapenem Ertapenem Chief Complaint Ertapenem Ertapenem Ertapenem Chief Complaint Ertapenem Ertapenem Ertapenem Ertapenem Chief Complaint Ertapenem Ertapenem Ertapenem Ertapenem Ertapenem Chief Complaint Ertapenem Ertapenem Ertapenem Ertapenem Ertapenem Ertapenem Chief Complaint Ertapenem Ertapenem Ertapenem Ertapenem Ertapenem Ertapenem PICC DRAW/DRSG CHANGE Chief Complaint Ertapenem Ertapenem Ertapenem Ertapenem Ertapenem Ertapenem PICC DRAW/DRSG CHANGE Ertapenem Chief Complaint Ertapenem Ertapenem Ertapenem Ertapenem Ertapenem Ertapenem PICC DRAW/DRSG CHANGE Ertapenem Ertapenem Chief Complaint Ertapenem Ertapenem Ertapenem Ertapenem Ertapenem Ertapenem PICC DRAW/DRSG CHANGE Ertapenem Ertapenem Ertapenem Chief Complaint Ertapenem Ertapenem Ertapenem Ertapenem Ertapenem Ertapenem PICC DRAW/DRSG CHANGE Ertapenem Ertapenem Ertapenem Ertapenem Chief Complaint Ertapenem Ertapenem Ertapenem Ertapenem Ertapenem Ertapenem PICC DRAW/DRSG CHANGE Ertapenem Ertapenem Ertapenem Ertapenem Ertapenem Chief Complaint Ertapenem Ertapenem Ertapenem Ertapenem Ertapenem Ertapenem PICC DRAW/DRSG CHANGE Ertapenem Ertapenem Ertapenem Ertapenem Ertapenem Ertapenem Chief Complaint Ertapenem Ertapenem Ertapenem Ertapenem Ertapenem Ertapenem PICC DRAW/DRSG CHANGE Ertapenem Ertapenem Ertapenem Ertapenem Ertapenem Ertapenem PICC DRAW/DRSG CHANGE Chief Complaint Ertapenem Ertapenem Ertapenem Ertapenem Ertapenem Ertapenem PICC DRAW/DRSG CHANGE Ertapenem Ertapenem Ertapenem Ertapenem Ertapenem Ertapenem PICC DRAW/DRSG CHANGE Ertapenem Ertapenem Ertapenem Chief Complaint Ertapenem Ertapenem Ertapenem Ertapenem Ertapenem Ertapenem PICC DRAW/DRSG CHANGE Ertapenem Ertapenem Ertapenem Ertapenem Ertapenem Ertapenem PICC DRAW/DRSG CHANGE Ertapenem Ertapenem Ertapenem Ertapenem Ertapenem Chief Complaint Ertapenem Ertapenem Ertapenem Ertapenem Ertapenem Ertapenem PICC DRAW/DRSG CHANGE Ertapenem Ertapenem Ertapenem Ertapenem Ertapenem Ertapenem PICC DRAW/DRSG CHANGE Ertapenem Ertapenem Ertapenem Ertapenem Ertapenem Ertapenem Chief Complaint Ertapenem Ertapenem Ertapenem Ertapenem Ertapenem Ertapenem PICC DRAW/DRSG CHANGE Ertapenem Ertapenem Ertapenem Ertapenem Ertapenem Ertapenem PICC DRAW/DRSG CHANGE Ertapenem Ertapenem Ertapenem Ertapenem Ertapenem Ertapenem PICC DRAW/DRSG CHANGE Chief Complaint Ertapenem Ertapenem Ertapenem Ertapenem Ertapenem Ertapenem PICC DRAW/DRSG CHANGE Ertapenem Ertapenem Ertapenem Ertapenem Ertapenem Ertapenem PICC DRAW/DRSG CHANGE Ertapenem Ertapenem Ertapenem Ertapenem Ertapenem Ertapenem PICC DRAW/DRSG CHANGE Ertapenem Chief Complaint Ertapenem Ertapenem Ertapenem Ertapenem Ertapenem Ertapenem PICC DRAW/DRSG CHANGE Ertapenem Ertapenem Ertapenem Ertapenem Ertapenem Ertapenem PICC DRAW/DRSG CHANGE Ertapenem Ertapenem Ertapenem Ertapenem Ertapenem Ertapenem PICC DRAW/DRSG CHANGE Ertapenem Ertapenem Ertapenem Chief Complaint Ertapenem Ertapenem Ertapenem Ertapenem Ertapenem Ertapenem PICC DRAW/DRSG CHANGE Ertapenem Ertapenem Ertapenem Ertapenem Ertapenem Ertapenem PICC DRAW/DRSG CHANGE Ertapenem Ertapenem Ertapenem Ertapenem Ertapenem Ertapenem PICC DRAW/DRSG CHANGE Ertapenem Ertapenem Ertapenem Ertapenem Medications Administered Section Active Administered Medications - up to 3 most recent administrations Medication Order MAR Action Action Date Dose Rate Site fluorescein-benoxinate 0.3-0.4 % drop 1 Drop 1 Drop, BOTH EYES, DIRECTED, Starting on Tue08/08/23 at 1430, Until Tue08/09/23 at 022, Administer for applanation tonometry. In the event of a Fluress shortage, administer [place]-Fluor 1 drop into both eyes as directed for applanation tonometry Given 08/08/2023 2:30 PM EDT 1 Drop PHENYLephrine 2.5 % 1 Drop (AK-DILATE, ARCELIA-SYNEPHRINE) 1 Drop, BOTH EYES, DIRECTED, Starting on Tue08/08/23 at 1430, Until Tue08/09/23 at 0229, Administer for dilation PROTECT FROM LIGHT Given 08/08/2023 2:30 PM EDT 1 Drop proparacaine 0.5 % 1 Drop (ALCAINE) 1 Drop, BOTH EYES, DIRECTED, Starting on Tue08/08/23 at 1430, Until Tue08/09/23 at 0229, Administer for pneumo tonometry, tonopen tonometry, or pachymetry. In the event of a proparacaine shortage, administer tetracaine 0.5% ophthalmic drops 1 drop in the left eye as directed for pneumo tonometry, tonopen tonometry, or pachymetry Given 08/08/2023 2:30 PM EDT 1 Drop tropicamide 1 % 1 Drop (MYDRIACYL) 1 Drop, BOTH EYES, DIRECTED, Starting on Tue08/08/23 at 1430, Until Tue08/09/23 at 0229, Administer for dilation Given 08/08/2023 2:30 PM EDT 1 Drop Additional Source Comments INFORMATION SOURCE (unrecogn ized section and content) DATE CREATED AUTHOR 07/28/2019 [facility] DATE CREATED AUTHOR AUTHOR'S ORGANIZ ATION 11/02/2022 [facility] DATE CREATED AUTHOR AUTHOR'S ORGANIZ ATION 02/06/2023 [facility] DATE CREATED AUTHOR AUTHOR'S ORGANIZ ATION 07/13/2023 [facility] DATE CREATED AUTHOR AUTHOR'S ORGANIZ ATION 08/22/2023 [facility] DATE CREATED AUTHOR AUTHOR'S ORGANIZ ATION 10/11/2023 [facility] DATE CREATED AUTHOR AUTHOR'S ORGANIZ ATION 06/14/2024 [facility] DATE CREATED AUTHOR AUTHOR'S ORGANIZ ATION 10/20/2024 [facility] DATE CREATED AUTHOR AUTHOR'S ORGANIZ ATION 11/03/2024 [facility] DATE CREATED AUTHOR AUTHOR'S ORGANIZ ATION 11/07/2024 [facility] DATE CREATED AUTHOR AUTHOR'S ORGANIZ ATION 04/08/2025 [facility] DATE CREATED AUTHOR AUTHOR'S ORGANIZ ATION 04/16/2025 [facility] DATE CREATED AUTHOR AUTHOR'S ORGANIZ ATION 05/24/2025 [facility] DATE CREATED AUTHOR AUTHOR'S ORGANIZ ATION 07/10/2025 [facility] DATE CREATED AUTHOR AUTHOR'S ORGANIZ ATION 08/11/2025 [facility] Reason for Visit (unrecogniz ed section and content) Reason Comments Shoulder Pain Reason Comments New Patient Urinary Incontinence Specialty Diagnoses / Procedures Referred By Contac t Referred To Contact Urology Diagnoses Mixed stress and urge incontinence Ferine Paredes, DO [address] [place] [address] Washington Garner MD [address] [facility], [place] [address] Referral ID Status Reason Start Date Expiration Date V isits Requested Visits Authorized [id number] New Request 12/30/2021 01/24/2023 1 1 Reason Comments Pain Follow-up Specialty Diagnoses / Procedures Referred By Contac t Referred To Contact Diagnoses Osteoarthritis of left sacroiliac joint Procedures US IMAGING FOR ORTHO Garry Stephens MD [address] [place] [address] Referral ID Status Reason Start Date Expiration Date V isits Requested Visits Authorized [id number] New Request 03/02/2022 03/27/2023 1 1 Reason Comments Diabetes Reason Comments Follow-up 1 mo Mixed Incontine nce Reason Comments Diabetes Reason Comments Consult Follow up UDN result s Urinary Incontinence States leaking with cough or sneeze, or with jumping. Also states its painful to pee. Wears pad when going on trips. States if bladder is full she can leak if she does not find a bathroom. States she uses [facility] quite frequently, states she has pain when she has to void. States pain in urethra. Reason Comments Consult Seen 06/07/2022 per Jone Rangel Reason Comments Pre-op Exam Pt is scheduled with TK for midurethral sling and anterior repair and cysto with hydrodilation of the bladder on 08/31/22. PAT is scheduled for this afternoon. Reason Comments Consult PERCY- inspire consult , failed CPAP, had sleep study done around [address] [facility] Reason Comments Post Op Visit 08/31/2022 Mid urethr al sling, cysto, anterior and posterior colporrhaphy. Reason Comments Immunization/Injection Specialty Diagnoses / Procedures Referred By Contac t Referred To Contact Diagnoses Sacroiliitis Procedures XR SPINE LUMBAR W BENDING Isreal Sigala MD [address] [place] [address] [facility] Referral ID Status Reason Start Date Expiration Date V isits Requested Visits Authorized [id number] New Request 10/12/2022 11/06/2023 1 1 Reason Comments Follow-up Reason Comments Sudden Loss Of Vision Left eye Headaches On temples both side s for 2-3 days Reason Comments Central Retinal Artery Occlusion Follow Up Left Eye Reason Comments Patient Question Reason Comments Hospital F/U Reason Comments Follow Up Gyant interaction - F/U - attempt made. No answer Specialty Diagnoses / Procedures Referred By Contac t Referred To Contact Diagnoses Left knee pain, unspecified chronicity Procedures XR BONE LENGTH STUDY Gonsalo Blackwood MD [address] [place] [address] Referral ID Status Reason Start Date Expiration Date V isits Requested Visits Authorized [id number] New Request 11/05/2022 11/30/2023 1 1 Reason Comments Pain New Patient Reason Comments Diabetes Reason Comments Follow Up sleep study f/u- dis cuss other tx options Reason Comments Forms Reason Comments Results Zio Event Monitor Specialty Diagnoses / Procedures Referred By Contac t Referred To Contact Mammography Diagnoses Encounter for screening mammogram for malignant neoplasm of breast Procedures MAMMO SCREENING WITH ALEXANDER BILATERAL 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, LINTER OPERATOR-RESIDENTIAL CARE OFFICER [id number] [place] [address] [facility] [address] [place] [address] Referral ID Status Reason Start Date Expiration Date Visits Re quested Visits Authorized [id number] Closed 02/02/2022 02/27/2023 1 1 Reason Comments Central Retinal Artery Occlusion Follow Up Left eye Specialty Diagnoses / Procedures Referred By Contac t Referred To Contact Bone Densitometry Diagnoses Asymptomatic postmenopausal state Procedures BONE DENSITY AXIAL (HIP, PELVIS, SPINE) Fernie Paredes, DO [address] [place] [address] [facility] [address] [place] [address] Referral ID Status Reason Start Date Expiration Date Visits Re quested Visits Authorized [id number] Closed 02/14/2023 03/10/2024 1 1 Reason Comments Preoperative Assessment Left TKA 05/16 SA F * PAT/CAMP Reason Comments Toe Pain Toe pain L foot drai glenna pus, since January but worsened yesterday Reason Comments Chronic Kidney Disease Labs 04/21 bun-13, cr-0.81 Reason Comments Other Infection in foot, s tarted over 2 weeks ago Reason Comments Infection Specialty Diagnoses / Procedures Referred By Contac t Referred To Contact Podiatry Diagnoses Toe infection Shae Whittington, LINTER OPERATOR-RESIDENTIAL CARE OFFICER [address] [place] [address] Dawn Uriarte, DPM [address] [place] [address] Referral ID Status Reason Start Date Expiration Date V isits Requested Visits Authorized [id number] New Request 04/21/2023 05/15/2024 1 1 Reason Comments Condition Update Reason Comments Ulcer Follow-up Reason Comments Results Specialty Diagnoses / Procedures Referred By Contac t Referred To Contact Diagnoses Cellulitis and abscess of toe of left foot Procedures XR FOOT LEFT 3 VIEWS Dawn Uriarte, DPM [address] [place] [address] Referral ID Status Reason Start Date Expiration Date V isits Requested Visits Authorized [id number] New Request 06/14/2023 07/08/2024 1 1 Specialty Diagnoses / Procedures Referred By Contac t Referred To Contact Magnetic Resonance Imaging Diagnoses Lumbar spondylosis Procedures MRI SPINE LUMBAR WITHOUT CONTRAST MA MRI, LUMBAR SPINE Isreal Sigala MD [address] [facility] [address] [place] [address] [facility] [address] [place] [address] Referral ID Status Reason Start Date Expiration Date Visits Re quested Visits Authorized [id number] Closed 06/07/2023 07/01/2024 1 1 Reason Comments Urodynamics Urinary Incontinence , Dysuria Specialty Diagnoses / Procedures Referred By Contac t Referred To Contact Diagnoses Urinary incontinence, unspecified type Dysuria Procedures URODYNAMICS Dariusz Rangel MD [address] [place] [address] Referral ID Status Reason Start Date Expiration Date Visits Re quested Visits Authorized [id number] Closed 06/01/2022 06/26/2023 1 1 Reason Comments Ulcer Cellulitis Follow-up Specialty Diagnoses / Procedures Referred By Contac t Referred To Contact Magnetic Resonance Imaging Diagnoses Cellulitis and abscess of toe of left foot Procedures MRI FOOT LEFT WITHOUT CONTRAST MA MRI, LOWER EXTREM Dawn Uriarte DPM [address] [place] [address] [address] Referral ID Status Reason Start Date Expiration Date Visits Re quested Visits Authorized [id number] Closed 06/28/2023 07/22/2024 1 1 Reason Comments Sleep Apnea Specialty Diagnoses / Procedures Referred By Contac t Referred To Contact Dentistry / DENTISTRY Diagnoses Obstructive sleep apnea (adult) (pediatric) OA Impressions Procedures ORAL DEVICE/APPLIANCE CUSFAB EST PATIENT Fernie Paredes, DO [address] [address] Tom Srivastava, DMD [address] [place] [address] Referral ID Status Reason Start Date Expiration Date V isits Requested Visits Authorized [id number] Authorized 10/24/2022 10/23/2023 99 99 Reason Comments New Patient Cellulitis and absce ss of toe of left foot Specialty Diagnoses / Procedures Referred By Contac t Referred To Contact Infectious Diseases Diagnoses Cellulitis and abscess of toe of left foot Dawn Uriarte DPM [address] [place] [address] Monse Shipley MD [address] [place] [address] Referral ID Status Reason Start Date Expiration Date V isits Requested Visits Authorized [id number] New Request 06/28/2023 07/22/2024 1 1 Specialty Diagnoses / Procedures Referred By Contac t Referred To Contact Diagnoses Abscess of fourth toe of left foot Cellulitis of fourth toe, left Abscess of fourth toe of left foot [L02.612] Cellulitis of fourth toe, left [L03.032] Procedures MA DEEP DISSEC FOOT INFEC,1 BURSA I&D BURSA FOOT Dawn Uriarte, ANDREA [address] [place] [phone] Referral ID Status Reason Start Date Expiration Date Visits Re quested Visits Authorized [id number] 06/29/2023 1 1 Reason Comments Follow-up 1 Week F/U Reason Comments Pain Reason Comments Toe Pain 4th toe on left foot from great toe. Dr. Uriarte debrided abscess on Sunday 07/15. No ATBs prescribed from him. Reason Comments Post Op Visit Reason Comments Follow-up Reason Comments Follow-up 1 week F/U celluliti s left lower foot. Patient states Dr. Treviño wants a PICC line with IV ATBS. ID office is waiting approval from [employer] Reason Comments Infusion Visit IV ATB Specialty Diagnoses / Procedures Referred By Contac t Referred To Contact Chemotherapy Diagnoses Cellulitis of other specified site Open wound of fourth toe of left foot, sequela Recurrent infections Monse Shipley MD [address] [place] [id number] [facility] [address] [phone] Referral ID Status Reason Start Date Expiration Date V isits Requested Visits Authorized [id number] New Request 07/22/2023 08/15/2024 1 1 Reason Comments Infusion Visit Invanz Reason Comments Infusion Visit Reason Comments Follow-up Follow up Specialty Diagnoses / Procedures Referred By Contac t Referred To Contact Dentistry / DENTISTRY Diagnoses Obstructive sleep apnea (adult) (pediatric) OA Impressions Procedures ORAL DEVICE/APPLIANCE CUSFAB EST PATIENT Fernie Paredes, DO [address] [place] [address] Tom Srivastava, DMD [address] [place] [address] Reason Comments Floaters Both Eyes continues Central Retinal Artery Occlusion Follow Up Left eye Blurry Vision Right Eye Reason Comments Follow-up MRI Results Reason Comments Follow Up Reason Comments Ingrown Toenail Follow-up Reason Comments Follow-up Follow up. Reason Comments Pain Follow-up Specialty Diagnoses / Procedures Referred By Contac t Referred To Contact Diagnoses Osteoarthritis of right sacroiliac joint Pain of right sacroiliac joint Procedures US IMAGING FOR ORTHO Garry Stephens MD [address] [facility] [place] [address] Referral ID Status Reason Start Date Expiration Date V isits Requested Visits Authorized [id number] New Request 09/26/2023 10/20/2024 1 1 Reason Comments Follow-up Follow up. Left 4th toe has some seeping. Patient has large bruise top of left foot. Patient denies fever, nausea, vomiting, or diarrhea. Specialty Diagnoses / Procedures Referred By Alonzo t Referred To Contact Diagnoses LUQ abdominal pain Procedures CT ABDOMEN/PELVIS WITH CONTRAST CHG CT SCAN,ABDOMENT AND PELVIS,W CONTRAST Naty Bhakta MD [address] [facility] 5th [place] [address] Referral ID Status Reason Start Date Expiration Date V isits Requested Visits Authorized [id number] New Request 09/21/2023 10/15/2024 1 1 Reason Comments Follow-up Reason Comments Chronic Kidney Disease BUN 19Creatinine 0.88 Reason Comments Recurrent Infections Infection of the fo urth toe left foot pt denies fevers nauseas vomiting sob Reason Comments Follow-up 45 day LAAO f/u--no complaints today Reason Comments Follow-up Joint Injection Referral ID Status Reason Start Date Expiration Date V isits Requested Visits Authorized [id number] New Request 01/10/2024 02/03/2025 1 1 Specialty Diagnoses / Procedures Referred By Alonzo t Referred To Contact Diagnoses Encounter for screening mammogram for malignant neoplasm of breast Procedures MAMMO SCREENING WITH ALEXANDER BILATERAL 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, LINTER OPERATOR-RESIDENTIAL CARE OFFICER [id number] [place] [address] Referral ID Status Reason Start Date Expiration Date Visits Re quested Visits Authorized [id number] Closed 02/03/2023 02/28/2024 1 1 Specialty Diagnoses / Procedures Referred By Contac t Referred To Contact Diagnoses Sacroiliitis, not elsewhere classified Procedures CT PELVIS WITHOUT CONTRAST MA CT SCAN,PELVIS,W/O CONTRAST Isreal Sigala MD [address] [place] [phone] Referral ID Status Reason Start Date Expiration Date Visits Re quested Visits Authorized [id number] Closed 02/15/2024 03/11/2025 1 1 Reason Comments New Patient Thyroid Problem Hyperthyroidism Specialty Diagnoses / Procedures Referred By Contac t Referred To Contact Endocrinology, Diabetes & Metabolism Diagnoses Hyperthyroidism Fernie Paredes, DO [address] [facility] [address] [place] [phone] Tom Mcmillan MD [address] [place] [phone] Referral ID Status Reason Start Date Expiration Date Visits Re quested Visits Authorized [id number] Open 01/19/2024 02/12/2025 1 1 Specialty Diagnoses / Procedures Referred By Contac t Referred To Contact Diagnoses Abnormal thyroid stimulating hormone (TSH) level Dysphagia, unspecified type Hyperthyroidism Procedures US THYROID Aviva Mera CNP [address] [place] [phone] Referral ID Status Reason Start Date Expiration Date Visits Re quested Visits Authorized [id number] Closed 03/12/2024 04/06/2025 1 1 Reason Comments Thyroid Problem Abnormal thyroid sti mulating hormone (TSH) level Specialty Diagnoses / Procedures Referred By Contac t Referred To Contact Diagnoses Sacroiliitis Sacroiliitis [M46.1] Procedures MA ARTHRODESIS SI JOINT PERCUTANEOUS/MIN INVASIVE CHG FLUOROSCOPY UP TO 1 HOUR PHYSICIAN/QHP TIME MA IMPLANT/INSERT DEVICE, NOC PROSTHETIC IMPLANT NOS ARTHRODESIS SACROILIAC JOINT MINIMALLY INVASIVE W/ TRANSFIXING DEVICE FLUOROSCOPY IN OR Isreal Sigala MD [address] [facility] [address] [place] [address] Referral ID Status Reason Start Date Expiration Date Visits Re quested Visits Authorized [id number] 04/03/2024 1 1 Reason Comments Follow-up 6 mo LAAO f/u--no co mplaints today Reason Comments Blurred Vision Right Eye Difficulty Reading Right Eye Reason Comments Pain Reason Comments Optic Atrophy Follow Up Left eye Reason Comments Follow-up [facility] 1 year LAAO f/u- - no complaints today Specialty Diagnoses / Procedures Referred By Contac t Referred To Contact Diagnoses Dysphagia, unspecified type Iron deficiency anemia, unspecified iron deficiency anemia type Procedures DIAGNOSTIC UPPER ENDOSCOPY MA ESOPHAGOGASTRODUODENOSCOPY TRANSORAL DIAGNOSTIC Delilah Ellis Jr., DO [address] [place] [address] Referral ID Status Reason Start Date Expiration Date Visits Re quested Visits Authorized [id number] Closed 10/23/2024 11/17/2025 1 1 Reason Comments Chronic Kidney Disease Labs 10/15 BUN 13 cr 0.90 Specialty Diagnoses / Procedures Referred By Contac t Referred To Contact Diagnoses Dysphagia, unspecified type Iron deficiency anemia, unspecified iron deficiency anemia type Procedures XR FLUORO MODIFIED BARIUM SWALLOW WITH SPEECH Delilah Ellis Jr., [address] [address] Referral ID Status Reason Start Date Expiration Date Visits Re quested Visits Authorized [id number] Closed 10/23/2024 11/17/2025 2 2 Reason Comments Post Op Visit Reason Comments New Patient Anemia Specialty Diagnoses / Procedures Referred By Contac t Referred To Contact Gastroenterology Diagnoses Iron deficiency anemia, unspecified iron deficiency anemia type Fernie Paredes DO [address] [address] Phone: tel: fax: Delilah Ellis Jr., DO [address] [place] [address] Phone: tel: fax: Referral ID Status Reason Start Date Expiration Date V isits Requested Visits Authorized [id number] New Request 07/09/2024 08/03/2025 1 1 Reason Comments Vomiting Weight Loss Consult Reason Comments Diabetes Reason Comments Consult Results Reason Comments Annual Exam 65 yo here for raciel sesay exam. Last pap done 02.03.2023 - negative. Mammo 01.23.2024. dexa 03.01.2023 - WNL. Last colonoscopy - 04.07.2018 Reason Comments Suicidal Arrives via [facility] [place], pt reportedly attempted suicide yesterday but was unable to work the gun.. Today the pt's committed suicide 3 hours ago via the same gun she attempted to use. Pt states this is a tough time of the year for them because her daughter 26 years ago today. Pt states if the deputy had left her at home she would use another gun or overdose on pills to end her life. Placed in psych safe room, wanded by security, changed to paper scrubs. 1:1 sitter on arrival Reason Comments Follow-up Recurrent infections (Left foot)Patient denies fever, nausea, vomiting or diarrhea Reason Comments Blurred Vision Right Eye Difficulty Reading Right Eye Glare Right Eye Reason Comments New Patient Pain Specialty Diagnoses / Procedures Referred By Alonzo t Referred To Contact Anesthesiology Pain Mgt Diagnoses Spondylosis of lumbar region without myelopathy or radiculopathy Spinal stenosis of lumbar region without neurogenic claudication Chronic midline low back pain with left-sided sciatica Fernie Paredes DO [address] [facility] [address] [facility] [address] [place] [phone] Phone: tel: fax: Bashir Christianson MD [address] [place] [address] Phone: tel: fax: Referral ID Status Reason Start Date Expiration Date V isits Requested Visits Authorized [id number] New Request 03/26/2025 04/20/2026 1 1 Reason Comments Status post YAG laser right eye Care Teams (unrecognized sec tion and content) Switchboard Installer Relationship Specialty Start Date End Date Fernie Paredes DO PCP - General Family Medicine 04/07/18 Aftab Bertrand MBBS [address] [place] [address] [place] [address] Medical Oncology 10/22/15 Naty Bhakta MD [address] 5th [place] [address] Hematology 11/01/16 Switchboard Installer Relationship Specialty Start Date End Date Fernie Paredes, DO PCP - General Family Medicine 04/07/18 Aftab Bertrand MBBS [address] [place] [address] [place] [address] Medical Oncology 10/22/15 Naty Bhakta MD [address] 5th [place] [address] Hematology 11/01/16 Switchboard Installer Relationship Specialty Start Date End Date Fernie Paredes, DO PCP - General Family Medicine 04/07/18 Aftab Bertrand MBBS [address] [place] [address] [place] [address] Medical Oncology 10/22/15 Naty Bhakta MD [address] 5th [place] [address] Hematology 11/01/16 Switchboard Installer Relationship Specialty Start Date End Date Fernie Paredes, DO PCP - General Family Medicine 04/07/18 Aftab Bertrand MBBS [address] [place] [address] [place] [address] Medical Oncology 10/22/15 Naty Bhakta MD [address]th [place] [address] Hematology 11/01/16 Switchboard Installer Relationship Specialty Start Date End Date Fernie Paredes, DO PCP - General Family Medicine 04/07/18 Aftab Bertrand MBBS [address] [place] [address] [place] [address] Medical Oncology 10/22/15 Naty Bhakta MD [address] 5th [place] [address] Hematology 11/01/16 Switchboard Installer Relationship Specialty Start Date End Date Fernie Paredes, DO PCP - General Family Medicine 04/07/18 Aftab Bertrand MBBS [address] [place] [address] [place] [address] Medical Oncology 10/22/15 Naty Bhakta MD [address]th [place] [address] Hematology 11/01/16 Switchboard Installer Relationship Specialty Start Date End Date Fernie Paredes, DO PCP - General Family Medicine 04/07/18 Aftab Bertrand MBBS [address] [place] [address] [place] [address] Medical Oncology 10/22/15 Naty Bhakta MD [address] 5th [place] [address] Hematology 11/01/16 Switchboard Installer Relationship Specialty Start Date End Date Fernie Paredes, DO PCP - General Family Medicine 04/07/18 Aftab Bertrand MBBS [address] [place] [address] [place] [address] Medical Oncology 10/22/15 Naty Bhakta MD [address] 5th [place] [address] Hematology 11/01/16 Switchboard Installer Relationship Specialty Start Date End Date Fernie Paredes, DO PCP - General Family Medicine 04/07/18 Aftab Bertrand MBBS [address] [place] [address] [place] [address] Medical Oncology 10/22/15 Naty Bhakta MD [address] 5th [place] [address] Hematology 11/01/16 Switchboard Installer Relationship Specialty Start Date End Date Fernie Paredes, DO PCP - General Family Medicine 04/07/18 Aftab Bertrand MBBS [address] [place] [address] [place] [address] Medical Oncology 10/22/15 Naty Bhakta MD [address] 5[address] [place] [address] Hematology 11/01/16 Switchboard Installer Relationship Specialty Start Date End Date Fernie Paredes, DO PCP - General Family Medicine 04/07/18 Aftab Bertrand MBBS [address] [place] [address] [place] [address] Medical Oncology 10/22/15 Naty Bhakta MD [address]th [place] [address] Hematology 11/01/16 Switchboard Installer Relationship Specialty Start Date End Date Roxann Yan MD PCP - General Internal Medicine 07/23/15 Switchboard Installer Relationship Specialty Start Date End Date Fernie Paredes DO PCP - General Family Medicine 04/07/18 Aftab Bertrand MBBS [address] [place] [address] [place] [address] Medical Oncology 10/22/15 Naty Bhakta MD [address] 5th [place] [address] Hematology 11/01/16 Switchboard Installer Relationship Specialty Start Date End Date Fernie Paredes DO PCP - General Family Medicine 04/07/18 Aftab Bertrand MBBS [address] [place] [address] Medical Oncology 10/22/15 Naty Bhakta MD [address] 5th [place] [address] Hematology 11/01/16 Switchboard Installer Relationship Specialty Start Date End Date Roxann Yan MD PCP - General Internal Medicine 07/23/15 10/29/22 Fernie Paredes DO [address] [place] [address] PCP - General Family Medicine 10/30/22 Switchboard Installer Relationship Specialty Start Date End Date Fernei Paredes DO [address] [place] [address] PCP - General Family Medicine 10/30/22 Switchboard Installer Relationship Specialty Start Date End Date Fernie Paredes DO [address] [place] [address] PCP - General Family Medicine 10/30/22 Switchboard Installer Relationship Specialty Start Date End Date Fernie Paredes DO [address] [place] [address] PCP - General Family Medicine 10/30/22 Switchboard Installer Relationship Specialty Start Date End Date Fernie Paredes DO [address] [place] [address] PCP - General Family Medicine 10/30/22 Switchboard Installer Relationship Specialty Start Date End Date Fernie Paredes DO [address] [place] [address] PCP - General Family Medicine 10/30/22 Switchboard Installer Relationship Specialty Start Date End Date Fernie Paredes DO PCP - General Family Medicine 04/07/18 Aftab Bertrand MBBS [address] [facility] [place] [address] Medical Oncology 10/22/15 Naty Bhakta MD [address] 5th [place] [address] Hematology 11/01/16 Switchboard Installer Relationship Specialty Start Date End Date Fernie Paredes DO PCP - General Family Medicine 04/07/18 Aftab Bertrand MBBS [address] [place] [address] Medical Oncology 10/22/15 Naty Bhakta MD [address] 5th [place] [address] Hematology 11/01/16 Switchboard Installer Relationship Specialty Start Date End Date Fernie Paredes, DO [address] [place] [address] PCP - General Family Medicine 10/30/22 Switchboard Installer Relationship Specialty Start Date End Date Fernie Paredes, DO PCP - General Family Medicine 04/07/18 Aftab Bertrand MBBS [address] [place] [address] Medical Oncology 10/22/15 Naty Bhakta MD [address] [place] [address] Hematology 11/01/16 Switchboard Installer Relationship Specialty Start Date End Date Fernie Paredes, DO [address] [place] [address] PCP - General Family Medicine 10/30/22 Switchboard Installer Relationship Specialty Start Date End Date Fernie Paredes, DO PCP - General Family Medicine 04/07/18 Aftab Bertrand MBBS [address] [place] [address] Medical Oncology 10/22/15 Naty Bhakta MD [address] 5th [place] [address] Hematology 11/01/16 Switchboard Installer Relationship Specialty Start Date End Date Fernie Paredes, DO PCP - General Family Medicine 04/07/18 Aftab Bertrand, [employer] [address] [place] [address] Medical Oncology 10/22/15 Naty Bhakta MD [address] 5th [place] [address] Hematology 11/01/16 Switchboard Installer Relationship Specialty Start Date End Date Fernie Paredes, DO [address] [place] [address] PCP - General Family Medicine 10/30/22 Switchboard Installer Relationship Specialty Start Date End Date Fernie Paredes, DO PCP - General Family Medicine 04/07/18 Aftab Bertrand MBBS [address] [place] [address] Medical Oncology 10/22/15 Naty Bhakta MD [address] 5th [place] [address] Hematology 11/01/16 Switchboard Installer Relationship Specialty Start Date End Date Fernie Paredes DO PCP - General Family Medicine 04/07/18 Aftab Bertrand MBBS [address] [place] [address] Medical Oncology 10/22/15 Naty Bhakta MD [address] 5th [place] [address] Hematology 11/01/16 Switchboard Installer Relationship Specialty Start Date End Date Fernie Paredes DO [address] [place] [address] PCP - General Family Medicine 04/07/18 Aftab Bertrand MBBS [address] [place] [address] Medical Oncology 10/22/15 Naty Bhakta MD [address] [place] [address] Hematology 11/01/16 Switchboard Installer Relationship Specialty Start Date End Date Fernie Paredes DO [address] [place] [address] PCP - General Family Medicine 04/07/18 Aftab Bertrand MBBS [address] [place] [address] Medical Oncology 10/22/15 Naty Bhakta MD [address] [place] [address] Hematology 11/01/16 Switchboard Installer Relationship Specialty Start Date End Date Fernie Paredes DO [address] [place] [address] PCP - General Family Medicine 04/07/18 Aftab Bertrand MBBS [address] [place] [address] Medical Oncology 10/22/15 Naty Bhakta MD [address] [place] [address] Hematology 11/01/16 Switchboard Installer Relationship Specialty Start Date End Date Fernie Paredes DO [address] [place] [address] PCP - General Family Medicine 04/07/18 Aftab Bertrand MBBS [address] [place] [address] Medical Oncology 10/22/15 Naty Bhakta MD [address] [place] [address] Hematology 11/01/16 Switchboard Installer Relationship Specialty Start Date End Date Fernie Paredes DO [address] [place] [address] PCP - General Family Medicine 04/07/18 Aftab Bertrand MBBS [address] [place] [address] Medical Oncology 10/22/15 Naty Bhakta MD [address] [place] [address] Hematology 11/01/16 Switchboard Installer Relationship Specialty Start Date End Date Fernie Paredes DO [address] 5th [place] [address] PCP - General Family Medicine 04/07/18 Aftab Bertrand MBBS [address] [place] [address] Medical Oncology 10/22/15 Naty Bhakta MD [address] 5th [place] [address] Hematology 11/01/16 Switchboard Installer Relationship Specialty Start Date End Date Fernie Paredes DO [address] [place] [address] PCP - General Family Medicine 04/07/18 Aftab Bertrand MBBS [address] [place] [address] Medical Oncology 10/22/15 Naty Bhakta MD [address] [place] [address] Hematology 11/01/16 Switchboard Installer Relationship Specialty Start Date End Date Fernie Paredes DO [address] [place] [address] PCP - General Family Medicine 04/07/18 Aftab Bertrand MBBS [address] [place] [address] Medical Oncology 10/22/15 Naty Bhkata MD [address] [place] [address] Hematology 11/01/16 Switchboard Installer Relationship Specialty Start Date End Date Fernie Paredes DO [address] [place] [address] PCP - General Family Medicine 10/30/22 Switchboard Installer Relationship Specialty Start Date End Date Fernie Paredes DO [address] [place] [address] PCP - General Family Medicine 04/07/18 Aftab Bertrand MBBS [address] [facility] [place] [address] Medical Oncology 10/22/15 Naty Bhakta MD [address] [place] [address] Hematology 11/01/16 Switchboard Installer Relationship Specialty Start Date End Date Fernie Paredes DO [address] [place] [address] PCP - General Family Medicine 04/07/18 Aftab Bertrand MBBS [address] [facility] [place] [address] Medical Oncology 10/22/15 Naty Bhakta MD [address] [place] [address] Hematology 11/01/16 Switchboard Installer Relationship Specialty Start Date End Date Fernie Paredes DO [address] 5th [place] [address] PCP - General Family Medicine 04/07/18 Aftab Bertrand MBBS [address] [place] [address] Medical Oncology 10/22/15 Naty Bhakta MD [address] 5th [place] [address] Hematology 11/01/16 Switchboard Installer Relationship Specialty Start Date End Date Fernie Paredes DO [address] [place] [address] PCP - General Family Medicine 04/07/18 Aftab Bertrand MBBS [address] [place] [address] Medical Oncology 10/22/15 Naty Bhakta MD [address] [place] [address] Hematology 11/01/16 Switchboard Installer Relationship Specialty Start Date End Date Fernie Paredes DO [address] [place] [address] PCP - General Family Medicine 10/30/22 Switchboard Installer Relationship Specialty Start Date End Date Fernie Paredes DO [address] 5th [place] [address] PCP - General Family Medicine 04/07/18 Aftab Bertrand MBBS [address] [place] [address] Medical Oncology 10/22/15 Naty Bhakta MD [address] 5th [place] [address] Hematology 11/01/16 Switchboard Installer Relationship Specialty Start Date End Date Fernie Paredes DO [address] 5th [place] [address] PCP - General Family Medicine 04/07/18 Aftab Bertrand MBBS [address] [place] [address] Medical Oncology 10/22/15 Naty Bhakta MD [address] 5th [place] [address] Hematology 11/01/16 Switchboard Installer Relationship Specialty Start Date End Date Fernie Paredes DO [address] [place] [address] PCP - General Family Medicine 04/07/18 Aftab Bertrand MBBS [address] [place] [address] Medical Oncology 10/22/15 Naty Bhakta MD [address] [place] [address] Hematology 11/01/16 Switchboard Installer Relationship Specialty Start Date End Date Fernie Paredes DO [address] 5th [place] [address] PCP - General Family Medicine 04/07/18 Aftab Bertrand MBBS [address] [place] [address] Medical Oncology 10/22/15 Naty Bhakta MD [address] 5th [place] [address] Hematology 11/01/16 Switchboard Installer Relationship Specialty Start Date End Date Fernie Paredes DO [address] 5th [place] [address] PCP - General Family Medicine 04/07/18 Aftab Bertrand MBBS [address] [place] [address] Medical Oncology 10/22/15 Naty Bhakta MD [address] 5th [place] [address] Hematology 11/01/16 Switchboard Installer Relationship Specialty Start Date End Date Fernie Paredes DO [address] 5th [place] [address] PCP - General Family Medicine 04/07/18 Aftab Bertrand MBBS [address] [place] [address] Medical Oncology 10/22/15 Naty Bhakta MD [address] 5th [place] [address] Hematology 11/01/16 Switchboard Installer Relationship Specialty Start Date End Date Fernie Paredes DO [address] 5th [place] [address] PCP - General Family Medicine 04/07/18 Aftab Bertrand MBBS [address] [place] [address] Medical Oncology 10/22/15 Naty Bhakta MD [address] 5th [place] [address] Hematology 11/01/16 Switchboard Installer Relationship Specialty Start Date End Date Fernie Paredes DO [address] 5th [place] [address] PCP - General Family Medicine 04/07/18 Aftab Bertrand MBBS [address] [place] [address] Medical Oncology 10/22/15 Naty Bhakta MD [address] 5th [place] [address] Hematology 11/01/16 Switchboard Installer Relationship Specialty Start Date End Date Fernie Paredes DO [address] 5th [place] [address] PCP - General Family Medicine 04/07/18 Aftab Bertrand MBBS [address] [place] [address] Medical Oncology 10/22/15 Naty Bhakta MD [address] 5th [place] [address] Hematology 11/01/16 Switchboard Installer Relationship Specialty Start Date End Date Fernie Paredes DO [address] 5th [place] [address] PCP - General Family Medicine 04/07/18 Aftab Bertrand MBBS [address] [place] [address] Medical Oncology 10/22/15 Naty Bhakta MD [address] 5th [place] [address] Hematology 11/01/16 Switchboard Installer Relationship Specialty Start Date End Date Fernie Paredes DO [address] [place] [address] PCP - General Family Medicine 04/07/18 Aftab Bertrand MBBS [address] [place] [address] Medical Oncology 10/22/15 Naty Bhakta MD [address] 5th [place] [address] Hematology 11/01/16 Switchboard Installer Relationship Specialty Start Date End Date Fernie Paredes DO [address]th [place] [address] PCP - General Family Medicine 04/07/18 Aftab Bertrand MBBS [address] [place] [address] Medical Oncology 10/22/15 Naty Bhakta MD [address]th [place] [address] Hematology 11/01/16 Switchboard Installer Relationship Specialty Start Date End Date Fernie Paredes DO [address] [place] [address] PCP - General Family Medicine 04/07/18 Aftab Bertrand MBBS [address] [place] [address] Medical Oncology 10/22/15 Naty Bhakta MD [address] [place] [address] Hematology 11/01/16 Switchboard Installer Relationship Specialty Start Date End Date Fernie Paredes DO [address] 5th [place] [address] PCP - General Family Medicine 04/07/18 Aftab Bertrand MBBS [address] [place] [address] Medical Oncology 10/22/15 Naty Bhakta MD [address]th [place] [address] Hematology 11/01/16 Switchboard Installer Relationship Specialty Start Date End Date Fernie Paredes DO PCP - General Family Medicine 10/30/22 Team Status: Active Member Role Status Dates Elaine Ciesa [employer] PROD[employer]ER, [employer] PRODUCER-C Family Provider Active Elaine Ciesa [employer] PRODUCER, [employer] PRODUCER-C Primary Care Provider Active Team Status: Inactive Member Role Status Dates Elaine Ciesa [employer] PRODUCER, [employer] PRODUCER-C Primary Care Provider Active BRE SHEA Attending Provider, Referring Provider Ac tive Team Status: Inactive Member Role Status Dates Elaine Jasminesa [employer] PRODUCER, [employer] PRODUCER-C Primary Care Provider Active Dr. Monse Shipley MD Attending Provider, Referring Prov ider Active Team Status: Inactive Member Role Status Dates Elaine Oquendo [employer] PRODUCER, [employer] PRODUCER-C Primary Care Provider Active Dr. Monse Shipley MD Attending Provider Active Team Status: Active Member Role Status Dates Elaine Lianga [employer] PRODUCER, [employer] PRODUCER-C Primary Care Provider Active Dr. Monse Shipley MD Attending Provider, Referring Prov ider Active Switchboard Installer Relationship Specialty Start Date End Date Fernie Paredes DO PCP - General Family Medicine 10/30/22 Akua Warren OD [address] [place] [address] Optometry 08/08/23 Perry Reyna [facility] [place] [id number] Optometry 08/08/23 08/08/23 Switchboard Installer Relationship Specialty Start Date End Date Fernie Paredes DO [address] [place] [address] PCP - General Family Medicine 04/07/18 Aftab Bertrand MBBS [address] [place] [address] Medical Oncology 10/22/15 Naty Bhakta MD [address] [place] [address] Hematology 11/01/16 Switchboard Installer Relationship Specialty Start Date End Date Fernie Paredes DO PCP - General Family Medicine 10/30/22 Akua Warren OD [address] [place] [address] Optometry 08/08/23 Switchboard Installer Relationship Specialty Start Date End Date Fernie Paredes DO [address] [place] [address] PCP - General Family Medicine 04/07/18 Aftab Bertrand MBBS [address] [place] [address] Medical Oncology 10/22/15 Naty Bhakta MD [address] [place] [address] Hematology 11/01/16 Switchboard Installer Relationship Specialty Start Date End Date Fernie Paredes DO [address] [place] [address] PCP - General Family Medicine 04/07/18 Aftab Bertrand MBBS [address] [place] [address] Medical Oncology 10/22/15 Naty Bhakta MD [address] [place] [address] Hematology 11/01/16 Switchboard Installer Relationship Specialty Start Date End Date Fernie Paredes DO [address] 5th [place] [address] PCP - General Family Medicine 04/07/18 Aftab Bertrand MBBS [address] [place] [address] Medical Oncology 10/22/15 Naty Bhakta MD [address] [place] [address] Hematology 11/01/16 Switchboard Installer Relationship Specialty Start Date End Date Fernie Paredes DO [address] [place] [address] PCP - General Family Medicine 04/07/18 Aftab Bertrand MBBS [address] [place] [address] Medical Oncology 10/22/15 Naty Bhakta MD [address] [place] [address] Hematology 11/01/16 Switchboard Installer Relationship Specialty Start Date End Date Fernie Paredes DO [address] [place] [address] PCP - General Family Medicine 04/07/18 Aftab Bertrand MBBS [address] [place] [address] Medical Oncology 10/22/15 Naty Bhakta MD [address] 5th [place] [address] Hematology 11/01/16 Switchboard Installer Relationship Specialty Start Date End Date Fernie Paredes DO [address] [place], [place] [address] PCP - General Family Medicine 02/13/21 Switchboard Installer Relationship Specialty Start Date End Date Fernie Paredes DO [address] [place] [address] PCP - General Family Medicine 04/07/18 Aftab Bertrand MBBS [address] [place] [address] Medical Oncology 10/22/15 Naty Bhakta MD [address] 5th [place] [address] Hematology 11/01/16 Switchboard Installer Relationship Specialty Start Date End Date Fernie Paredes DO [address] [place], [place] 2437[address] PCP - General Family Medicine 02/13/21 Delilah Calderon, [address] [place] [address] Consulting Physician Cardiovascular Disease 10/26/23 Switchboard Installer Relationship Specialty Start Date End Date Fernie Paredes DO [address] [place] [address] PCP - General Family Medicine 02/13/21 Delilah Calderon, [address] [place] [address] Consulting Physician Cardiovascular Disease 10/26/23 Switchboard Installer Relationship Specialty Start Date End Date Fernie Paredes DO [address] [place] [address] PCP - General Family Medicine 02/13/21 Delilah Calderon, [address] [place] [address] Consulting Physician Cardiovascular Disease 10/26/23 Switchboard Installer Relationship Specialty Start Date End Date Fernie Paredes DO [address] [place] [address] PCP - General Family Medicine 02/13/21 Delilah Calderon, [address] [place] [address] 285[address] Consulting Physician Cardiovascular Disease 10/26/23 Switchboard Installer Relationship Specialty Start Date End Date Fernie Paredes DO [address] [place] [address] PCP - General Family Medicine 02/13/21 Delilah Calderon, [address] [place] [address] Consulting Physician Cardiovascular Disease 10/26/23 Switchboard Installer Relationship Specialty Start Date End Date Fernie Paredes DO [address] [place] [address] PCP - General Family Medicine 02/13/21 Delilah Calderon, [address] [place] [address] Consulting Physician Cardiovascular Disease 10/26/23 Switchboard Installer Relationship Specialty Start Date End Date Fernie Paredes DO [address] [place] [address] PCP - General Family Medicine 02/13/21 Delilah Calderon, [address] [place] [address] Consulting Physician Cardiovascular Disease 10/26/23 Switchboard Installer Relationship Specialty Start Date End Date Fernie Paredes DO [address] [place] [address] PCP - General Family Medicine 02/13/21 Delilah Calderon, [address] [place] [address] Consulting Physician Cardiovascular Disease 10/26/23 Switchboard Installer Relationship Specialty Start Date End Date Fernie Paredes DO [address] [place] [address] PCP - General Family Medicine 02/13/21 Delilah Calderon, [address] [place] [address] Consulting Physician Cardiovascular Disease 10/26/23 Switchboard Installer Relationship Specialty Start Date End Date Fernie Paredes DO [address] 5th [place] [address] PCP - General Family Medicine 04/07/18 Aftab Bertrand MBBS [address] [place] [address] Medical Oncology 10/22/15 Naty Bhakta MD [address] [place] [address] Hematology 11/01/16 Switchboard Installer Relationship Specialty Start Date End Date Fernie Paredes DO [address] [place] [address] PCP - General Family Medicine 04/07/18 Aftab Bertrand MBBS [address] [place] [address] Medical Oncology 10/22/15 Naty Bhakta MD [address] [place] [address] Hematology 11/01/16 Switchboard Installer Relationship Specialty Start Date End Date Fernie Paredes DO [address] [place] [address] PCP - General Family Medicine 04/07/18 Aftab Bertrand MBBS [address] [place] [address] Medical Oncology 10/22/15 Naty Bhakta MD [address] [place] [address] Hematology 11/01/16 Switchboard Installer Relationship Specialty Start Date End Date Fernie Paredes DO [address] [place] [address] PCP - General Family Medicine 04/07/18 Aftab Bertrand MBBS [address] [place] [address] Medical Oncology 10/22/15 Naty Bhakta MD [address] [place] [address] Hematology 11/01/16 Switchboard Installer Relationship Specialty Start Date End Date Fernie Paredes DO [address] [place] [address] PCP - General Family Medicine 04/07/18 Aftab Bertrand MBBS [address] [place] [address] Medical Oncology 10/22/15 Naty Bhakta MD [address] [place] [address] Hematology 11/01/16 Switchboard Installer Relationship Specialty Start Date End Date Fernie Paredes DO [address] [place] [address] PCP - General Family Medicine 04/07/18 Aftab Bertrand MBBS [address] [place] [address] Medical Oncology 10/22/15 Naty Bhakta MD [address] [place] [address] Hematology 11/01/16 Switchboard Installer Relationship Specialty Start Date End Date Fernie Paredes DO [address] [place] [address] PCP - General Family Medicine 04/07/18 Aftab Bertrand MBBS [address] [place] [address] Medical Oncology 10/22/15 Naty Bhakta MD [address] [place] [address] Hematology 11/01/16 Switchboard Installer Relationship Specialty Start Date End Date Fernie Paredes DO [address] [place] [address] PCP - General Family Medicine 02/13/21 Delilah Calderon, [address] [place] [address] Consulting Physician Cardiovascular Disease 10/26/23 Switchboard Installer Relationship Specialty Start Date End Date Fernie Paredes DO [address] [place] [address] PCP - General Family Medicine 04/07/18 Aftab Bertrand MBBS [address] [place] [address] Medical Oncology 10/22/15 Naty Bhakta MD [address] [place] [address] Hematology 11/01/16 Switchboard Installer Relationship Specialty Start Date End Date Fernie Paredes DO [address] [place] [address] PCP - General Family Medicine 04/07/18 Aftab Bertrand MBBS [address] [place] [address] Medical Oncology 10/22/15 Naty Bhakta MD [address] [place] [address] Hematology 11/01/16 Switchboard Installer Relationship Specialty Start Date End Date Fernie Paredes DO PCP - General Family Medicine 10/30/22 Akua Warren OD [address] [place] [address] Optometry 08/08/23 Switchboard Installer Relationship Specialty Start Date End Date Fernie Paredes DO [address] [place] [address] PCP - General Family Medicine 04/07/18 Aftab Bertrand MBBS [address] [place] [address] [place] [address] Medical Oncology 10/22/15 Naty Bhakta MD [address] 5th [place] [address] Hematology 11/01/16 Switchboard Installer Relationship Specialty Start Date End Date Fernie Paredes DO PCP - General Family Medicine 10/30/22 Akua Warren OD [address] [facility] [address] Optometry 08/08/23 Switchboard Installer Relationship Specialty Start Date End Date Fernie Paredes DO [address] [place] [address] PCP - General Family Medicine 04/07/18 Aftab Bertrand MBBS [address] [place] [address] [place] [address] Medical Oncology 10/22/15 Naty Bhakta MD [address] [place] [address] Hematology 11/01/16 Switchboard Installer Relationship Specialty Start Date End Date Fernie Paredes DO [address] [place] [address] PCP - General Family Medicine 04/07/18 Aftab Bertrand MBBS [address] [place] [address] [place] [address] Medical Oncology 10/22/15 Naty Bhakta MD [address] 5th [place] [address] Hematology 11/01/16 Switchboard Installer Relationship Specialty Start Date End Date Fernie Paredes DO [address] 5th [place] [address] PCP - General Family Medicine 04/07/18 Aftab Bertrand MBBS Medical Oncology 10/22/15 Naty Bhakta MD [address] [facility] [place] [address] Hematology 11/01/16 Switchboard Installer Relationship Specialty Start Date End Date Fernie Paredes DO [address] 5th [place] [address] PCP - General Family Medicine 04/07/18 Aftab Bertrand MBBS Medical Oncology 10/22/15 Naty Bhakta MD [address] [facility] [place] [address] Hematology 11/01/16 Switchboard Installer Relationship Specialty Start Date End Date Fernie Paredes DO [address] 5th [place] [address] PCP - General Family Medicine 04/07/18 Aftab Bertrand MBBS Medical Oncology 10/22/15 Naty Bhakta MD [address] [facility] [place] [address] Hematology 11/01/16 Switchboard Installer Relationship Specialty Start Date End Date Fernie Paredes DO [address] [facility] [place] [address] PCP - General Family Medicine 04/07/18 Aftab Bertrand MBBS Medical Oncology 10/22/15 Naty Bhakta MD [address] [place] [address], [place] [address] Hematology 11/01/16 Switchboard Installer Relationship Specialty Start Date End Date Fernie Paredes DO [address] [place] [address], [place] [address] PCP - General Family Medicine 04/07/18 Aftab Bertrand MBBS Medical Oncology 10/22/15 Naty Bhakta MD [address] [facility] [place] [address] Hematology 11/01/16 Switchboard Installer Relationship Specialty Start Date End Date Fernie Paredes DO [address] [place] [address] PCP - General Family Medicine 04/07/18 Aftab Bertrand MBBS Medical Oncology 10/22/15 Naty Bhakta MD [address] 5th [place] [address] Hematology 11/01/16 Switchboard Installer Relationship Specialty Start Date End Date Fernie Paredes DO [address] 5th [place] [address] PCP - General Family Medicine 04/07/18 Aftab Bertrand MBBS Medical Oncology 10/22/15 Naty Bhakta MD [address] 5th [place] [address] Hematology 11/01/16 Switchboard Installer Relationship Specialty Start Date End Date Fernie Paredes DO [address] 5th [place] [address] PCP - General Family Medicine 04/07/18 Aftab Bertrand MBBS Medical Oncology 10/22/15 Naty Bhakta MD [address] 5th [place] [address] Hematology 11/01/16 Switchboard Installer Relationship Specialty Start Date End Date Fernie Paredes DO [address] 5th [place] [address] PCP - General Family Medicine 04/07/18 Aftab Bertrand MBBS Medical Oncology 10/22/15 Naty Bhakta MD [address] 5th [place] [address] Hematology 11/01/16 Switchboard Installer Relationship Specialty Start Date End Date Fernie Paredes DO [address] 5th [place] [address] PCP - General Family Medicine 04/07/18 Aftab Bertrand MBBS Medical Oncology 10/22/15 Naty Bhakta MD [address] 5th [place] [address] Hematology 11/01/16 Switchboard Installer Relationship Specialty Start Date End Date Fernie Paredes DO [address] 5th [place] [address] PCP - General Family Medicine 04/07/18 Aftab Bertrand MBBS Medical Oncology 10/22/15 Naty Bhakta MD [address] 5th [place] [address] Hematology 11/01/16 Switchboard Installer Relationship Specialty Start Date End Date Fernie Paredes DO [address]th [place] [address] PCP - General Family Medicine 04/07/18 Aftab Bertrand MBBS Medical Oncology 10/22/15 Naty Bhakta MD [address] 5th [place] [address] Hematology 11/01/16 Switchboard Installer Relationship Specialty Start Date End Date Fernie Paredes DO [address] [facility] [place] [address] PCP - General Family Medicine 04/07/18 Aftab Bertrand MBBS Medical Oncology 10/22/15 Naty Bhakta MD [address] [facility] [place] [address] Hematology 11/01/16 Switchboard Installer Relationship Specialty Start Date End Date Fernie Paredes DO [address] [facility] [place] [address] PCP - General Family Medicine 04/07/18 Aftab Bertrand MBBS Medical Oncology 10/22/15 Naty Bhakta MD [address]th [place] [address] Hematology 11/01/16 Switchboard Installer Relationship Specialty Start Date End Date Fernie Paredes DO [address] 5th [place] [address] PCP - General Family Medicine 04/07/18 Aftab Bertrand MBBS Medical Oncology 10/22/15 Naty Bhakta MD [address] 5th [place] [address] Hematology 11/01/16 Switchboard Installer Relationship Specialty Start Date End Date Fernie Paredes DO [address] [place] [address] PCP - General Family Medicine 02/13/21 Delilah Calderon DO [address] [place] [address] Consulting Physician Cardiovascular Disease 10/26/23 Switchboard Installer Relationship Specialty Start Date End Date Fernie Paredes DO [address] [address] PCP - General Family Medicine 04/04/25 Switchboard Installer Relationship Specialty Start Date End Date Fernie Paredes DO [address] [address] PCP - General Family Medicine 04/07/18 Aftab Bertrand MBBS Medical Oncology 10/22/15 Naty Bhakta MD [address] 5th [place] [address] Hematology 11/01/16 Switchboard Installer Relationship Specialty Start Date End Date Fernie Paredes DO 600 [facility] [address] [place] [address] PCP - General Family Medicine 04/07/18 Aftab Bertrand MBBS Medical Oncology 10/22/15 Naty Bhakta MD [address] [place] [address] Hematology 11/01/16 Switchboard Installer Relationship Specialty Start Date End Date Fernie Paredes DO [address] [address] PCP - General Family Medicine 04/07/18 Aftab Bertrand MBBS Medical Oncology 10/22/15 Naty Bhakta MD [address] [place] [address] Hematology 11/01/16 Switchboard Installer Relationship Specialty Start Date End Date Fernie Paredes DO PCP - General Family Medicine 10/30/22 Akua Warren OD [address] [facility] [place] [address] Optometry 08/08/23 Switchboard Installer Relationship Specialty Start Date End Date Fernie Paredes DO 600 [facility] [address] [place] [address] PCP - General Family Medicine 04/07/18 Aftab Bertrand MBBS Medical Oncology 10/22/15 Naty Bhakta MD [address] 5th [place] [address] Hematology 11/01/16 Switchboard Installer Relationship Specialty Start Date End Date Fernie Paredes DO [address] [place] [address] PCP - General Family Medicine 04/07/18 Aftab Bertrand MBBS Medical Oncology 10/22/15 Naty Bhakta MD [address] [place] [address] Hematology 11/01/16 Switchboard Installer Relationship Specialty Start Date End Date Fernie Paredes DO [address] [place] [address] PCP - General Family Medicine 04/07/18 Aftab Bertrand MBBS Medical Oncology 10/22/15 Naty Bhakta MD [address] 5th [place] [address] Hematology 11/01/16 Switchboard Installer Relationship Specialty Start Date End Date Fernie Paredes DO PCP - General Family Medicine 10/30/22 Akua Warren OD Optometry 08/08/23 Switchboard Installer Relationship Specialty Start Date End Date Fernie Paredes DO [address] [place], [place] [phone] PCP - General Family Medicine 04/07/18 Aftab Bertrand MBBS Medical Oncology 10/22/15 Naty Bhakta MD [address] [place] [address] Hematology 11/01/16 Switchboard Installer Relationship Specialty Start Date End Date Fernie Paredes DO PCP - General Family Medicine 04/07/18 Aftab Bertrand MBBS Medical Oncology 10/22/15 Naty Bhakta MD Hematology 11/01/16 Switchboard Installer Relationship Specialty Start Date End Date Fernie Paredes DO PCP - General Family Medicine 04/07/18 Aftab Bertrand MBBS Medical Oncology 10/22/15 Naty Bhakta MD Hematology 11/01/16 Switchboard Installer Relationship Specialty Start Date End Date Fernie Paredes DO PCP - General Family Medicine 04/07/18 Aftab Bertrand MBBS Medical Oncology 10/22/15 Naty Bhakta MD Hematology 11/01/16 Switchboard Installer Relationship Specialty Start Date End Date Fernie Paredes DO [address] [place] [id number] PCP - General Family Medicine 04/07/18 Aftab Bertrand MBBS [address] [place] [address] Medical Oncology 10/22/15 Naty Bhakta MD [address] [place] [address] Hematology 11/01/16 Switchboard Installer Relationship Specialty Start Date End Date Fernie Paredes DO [address] [address] PCP - General Family Medicine 04/07/18 Aftab Bertrand MBBS [address] [place] [address] Medical Oncology 10/22/15 Naty Bhakta MD [address] [place] [address] Hematology 11/01/16 Switchboard Installer Relationship Specialty Start Date End Date Fernie Paredes DO [address] [address] PCP - General Family Medicine 04/07/18 Aftab Bertrand MBBS [address] [place] [address] Medical Oncology 10/22/15 Naty Bhakta MD [address] [place] [address] Hematology 11/01/16 Scheduled Active and Recently Administ ered Medications (unrecognized section and content) Medication Order 06/15/2022 06/16/2022 06/17/2022 ceFAZolin (ANCEF) 2 g in dextrose 100 mL premix IVPB 2 g, Intravenous, Administer over 30 Minutes, EVERY 8 HOURS NON-STANDARD, 2 doses, First dose on Tue06/17/22 at 1700, Last dose on Tue06/18/22 at 0100, Beginning 8 hours after preop dose, Post-op/Post-Proc dexAMETHasone (DECADRON) injection 10 mg 10 mg, Intravenous, EVERY 8 HOURS, 2 doses, First dose on Tue06/17/22 at 1400, Last dose on Tue06/17/22 at 2200, Post-op/Post-Proc 1400 (Canceled Entry - Provider: System Discharge - Comment: Automatically canceled at discontinue of medication order) docusate (COLACE) capsule 100 mg 100 mg, Oral, 2 TIMES DAILY, First dose on Tue06/17/22 at 1045, Until Discontinued, Post-op/Post-Proc 1045 (Canceled Entry - Provider: System Discharge - Comment: Automatically canceled at discontinue of medication order) polyethylene glycol (MIRALAX) packet 17 g 17 g, Oral, DAILY, First dose on 06/19/22 at 0900, Until Discontinued, Start post op day 2, Post-op/Post-Proc Continuous Medication Order 06/15/2022 06/16/2022 06/17/2022 sodium chloride 0.9% IV solution Intravenous, at 75 mL/hr, CONTINUOUS, Starting on Lina 06/17/22 at 0700, Until Lina 06/17/22 at 1444 0810 ($$New Bag$$ - Provider: Francois Ashford APRN-GRAD INTERN)1023 ($$New Bag$$ - Provider: ALBIN Breaux)1155 (Stopped - Provider: Iraj Hooker RN) sodium chloride 0.9% IV solution Intravenous, at 100 mL/hr, CONTINUOUS, Starting on Lina 06/17/22 at 1045, Until Lina 06/17/22 at 1444, Convert IV to PRN adapter post op day 1 if PO intake >=300ml/shift, Post-op/Post-Proc 1045 (Canceled Entry - Provider: System Discharge - Comment: Automatically canceled at discontinue of medication order) PRN Medication Order 06/15/2022 06/16/2022 06/17/2022 bisacodyl (DULCOLAX) suppository 10 mg 10 mg, Rectal, DAILY NEEDED, Starting on Lina 06/17/22 at 1043, Until Lina 06/17/22 at 1444, Constipation 1st Line, Post-op/Post-Proc Bupivacaine-Epinephrine (MARCAINE;SENSORCAINE-MPF) 0.5% -1:[id number] injection NEEDED, Starting on Lina 06/17/22 at 1001, Until Lina 06/17/22 at 1444, Intra-op/Intra-Proc 1001 (Given - Provid er: Isreal Sigala MD) ceFAZolin (ANCEF) 2 g in dextrose 100 mL premix IVPB (COMPLETED) 2 g, Intravenous, Administer over 30 Minutes, SHANK PAPERER TO PROCEDURE, 1 dose, Starting on Lina 06/17/22 at 0650, Until Discontinued, Other, Pre-operative antibiotic, Pre-op/Pre-Proc 0930 (Given - Provid er: Francois Ashford, LINTER OPERATOR-GRAD INTERN) hydroCODone-acetaminophen (NORCO) 5-325 MG per tablet 1-2 tablet 1-2 tablet, Oral, EVERY 4 HOURS NEEDED, Starting on Lina 06/17/22 at 1043, Until Lina 06/17/22 at 1444, Other, See Admin Instructions, 1 tablet for pain scale 4 or 5 out of 10 2 tablets for pain scale 6 to 10 out 10, Post-op/Post-Proc magnesium hydroxide (MILK OF MAGNESIA) oral suspension 30 mL 30 mL, Oral, EVERY 6 HOURS NEEDED, Starting on Lina 06/17/22 at 1043, Until Lina 06/17/22 at 1444, Other, constipation 2nd line, Post-op/Post-Proc methocarbamol (ROBAXIN) tablet 750-1,500 mg 750-1,500 mg, Oral, EVERY 8 HOURS NEEDED, Starting on Lina 06/17/22 at 1043, Until Lina 06/17/22 at 1444, Other, muscle spasm, Post-op/Post-Proc Normal Saline Flush 0.9% injection 5 mL 5 mL, Intravenous, ADMINISTER DIRECTED, Starting on Lina 06/17/22 at 1043, Until Lina 06/17/22 at 1444, Flush, per IV care guidelines, Post-op/Post-Proc ondansetron 4mg/2ml (ZOFRAN) injection 4 mg 4 mg, Intravenous, EVERY 8 HOURS NEEDED, Starting on Lina 06/17/22 at 1043, Until Lina 06/17/22 at 1444, Nausea / Vomiting, Post-op/Post-Proc vancomycin (VANCOCIN) injection NEEDED, Starting on Lina 06/17/22 at 1001, Until Lina 06/17/22 at 1444, Intra-op/Intra-Proc 1001 (Given - Provid er: Isreal Sigala MD) Continuous Medication Order 12/14/2022 12/15/2022 12/16/2022 Sodium chloride 0.9% IV solution Intravenous, at 100 mL/hr, CONTINUOUS, Starting on Lina 12/16/22 at 0700, Until Lina 12/16/22 at 1118 0720 ($$New Bag$$ - Provider: Yoselin Bedolla LPN)7527 (Stopped - Provider: Nery Germain RN) PRN Medication Order 12/14/2022 12/15/2022 12/16/2022 Bupivacaine (PF) (MARCAINE) 0.5 % injection NEEDED, Starting on Lina 12/16/22 at 0817, Until Lina 12/16/22 at 1118, Intra-op/Intra-Proc 0817 (Given - Provid er: Isreal Sigala MD) methylPREDNISolone acetate (DEPO-MEDROL) injection NEEDED, Starting on Lina 12/16/22 at 0817, Until Lina 12/16/22 at 1118, Intra-op/Intra-Proc 0817 (Given - Provid er: Isreal Sigala MD) PRN Medication Order 07/06/2023 07/07/2023 07/08/2023 Ropivacaine (NAROPIN) 1 % injection (CANCELED) NEEDED, Starting on Tue07/08/23 at 1007, Until Tue07/08/23 at 1015, Intra-op/Intra-Proc 1007 (Given - Provid er: Dawn Uriarte DPM) Continuous Medication Order 05/01/2024 05/02/2024 05/03/2024 Sodium chloride 0.9% IV solution Intravenous, at 125 mL/hr, CONTINUOUS, Starting on Lina 05/03/24 at 0930, Until Lina 05/03/24 at 1926 1010 ($$New Bag$$ - Provider: Yoselin Bedolla LPN)1205 (Paused - Provider: ALBIN Pitts - Comment: Switch to gravity)1206 (Restarted - Provider: JOSE PittsGRAD INTERN)1242 (Stopped - Provider: JOSE PittsGRAD INTERN) Sodium chloride 0.9% IV solution Intravenous, at 100 mL/hr, CONTINUOUS, Starting on Lina 05/03/24 at 1415, Until Lina 05/03/24 at 1926, Convert IV to PRN adapter post op day 1 if PO intake >=300ml/shift, Post-op/Post-Proc 1537 (Stopped - Prov ider: Nery Germain RN)1647 (Restarted - Provider: Nery Germain RN)1721 (Stopped - Provider: Nery Germain RN) PRN Medication Order 05/01/2024 05/02/2024 05/03/2024 BUPivacaine-EPINEPHrine (MARCAINE;SENSORCAINE-MPF) 0.5% -1:399908 injection (CANCELED) NEEDED, Starting on Lina 05/03/24 at 1309, Until Lina 05/03/24 at 1428, Intra-op/Intra-Proc 1309 (Given - Provid er: Isreal Sigala MD - Comment: placed on sterile field for use during the case. site is right hip for sacroiliac joint) ceFAZolin (ANCEF) 2 g in dextrose 100 mL premix IVPB (COMPLETED) 2 g, Intravenous, Administer over 15 Minutes, SHANK PAPERER TO PROCEDURE, 1 dose, Starting on Lina 05/03/24 at 0929, Until Lina 05/03/24 at 1237, Other, Pre-operative antibiotic, Pre-op/Pre-Proc 1237 ($$New Bag$$ - Provider: Alan Estevez APRN-GRAD INTERN) hydroCODone-acetaminophen (NORCO) 5-325 MG per tablet 1-2 tablet 1-2 tablet, Oral, EVERY 4 HOURS NEEDED, Starting on Lina 05/03/24 at 1411, Until Lina 05/03/24 at 1926, Other, See Admin Instructions, 1 tablet for pain scale 4 or 5 out of 10 2 tablets for pain scale 6 to 10 out 10, Post-op/Post-Proc 1503 (Given - Provid er: Nery Germain RN) HYDROmorphone (DILAUDID) injection 0.5 mg 0.5 mg, Intravenous, EVERY 15 MINUTES NEEDED, 3 doses, Starting on Lina 05/03/24 at 1432, Until Lina 05/03/24 at 1926, Severe Pain, Recovery 1435 (Given - Provid er: Nery Germain RN) Methocarbamol (ROBAXIN) tablet 750-1,500 mg 750-1,500 mg, Oral, EVERY 8 HOURS NEEDED, Starting on Lina 05/03/24 at 1411, Until Lina 05/03/24 at 1926, Other, muscle spasm, Post-op/Post-Proc 1504 (Given - Provid er: Nery Germain RN) mineral oil light 100 % topical oil (CANCELED) NEEDED, Starting on Lina 05/03/24 at 1312, Until Lina 05/03/24 at 1428, Intra-op/Intra-Proc 1312 (Given - Provid er: Isreal Sigala MD - Comment: placed on sterile field for use during the case. used for case.) Normal saline flush 0.9% injection 5 mL 5 mL, Intravenous, ADMINISTER DIRECTED, Starting on Lina 05/03/24 at 1411, Until Lina 05/03/24 at 1926, Flush, per IV care guidelines, Post-op/Post-Proc Ondansetron 4mg/2ml (ZOFRAN) injection 4 mg 4 mg, Intravenous, EVERY 8 HOURS NEEDED, Starting on Lina 05/03/24 at 1411, Until Lina 05/03/24 at 1926, Nausea / Vomiting, Post-op/Post-Proc 1545 (Given - Provid er: Nery Germain RN) Oxidized Cellulose (SURGICEL) topical pad (CANCELED) NEEDED, Starting on Lina 05/03/24 at 1311, Until Lina 05/03/24 at 1428, Intra-op/Intra-Proc 1311 (Given - Provid er: Isreal Sigala MD - Comment: placed on sterile field for use during the case. site is right hip for sacroiliac joint) Vancomycin (VANCOCIN) injection (COMPLETED) CONTINUOUS NEEDED, Starting on Lina 05/03/24 at 1311, Until Lina 05/03/24 at 1417, Intra-op/Intra-Proc 1311 ($$New Bag$$ - Provider: Isreal Sigala MD - Comment: placed on sterile field for use during the case. site is right hip for sacroiliac joint.) Scheduled Medication Order 11/11/2024 11/12/2024 11/13/2024 acetaminophen (TYLENOL) tablet 1,000 mg 1,000 mg, Oral, EVERY 6 HOURS NON-STANDARD, First dose on 11/12/24 at 1615, Until Discontinued, Post-op/Post-Proc 1627 (Given - Provider: Annalee Lindsay RN)2211 (Given - Provider: Tyesha Alexandra RN) 0416 (Given - Provider: Tyesha Alexandra RN)0915 (Not Given - Provider: Annalee Lindsay RN - Reason: Contraindicated) Allopurinol (ZYLOPRIM) tablet 100 mg 100 mg, Oral, DAILY, First dose on Tue11/13/24 at 0900, Until Discontinued 908 (Given - Provid er: Annalee Lindsay RN) Aspirin tablet delayed release 81 mg 81 mg, Oral, EVERY 12 HOURS, First dose on Tue11/13/24 at 0900, Until Discontinued, Start in AM day after surgery, Post-op/Post-Proc 908 (Given - Provid er: Annalee Lindsay RN) Aspirin tablet delayed release 81 mg 81 mg, Oral, DAILY WITH BREAKFAST, First dose on Tue11/13/24 at 0745, Until Discontinued 914 (Not Given - Provider: Annalee Lindsay RN - Reason: Other - Comment: Duplicate) buPROPion (WELLBUTRIN) tablet XL 300 mg 300 mg, Oral, DAILY BEFORE BREAKFAST, First dose on Tue11/13/24 at 0600, Until Discontinued, Do not crush, chew, or divide. 06 (Given - Provid er: Tyesha Alexandra RN) carveDILOL (COREG) tablet 12.5 mg 12.5 mg, Oral, 2 TIMES DAILY WITH MEALS, First dose on Tue11/12/24 at 1715, Until Discontinued 1825 (Given - Provider: Annalee Lindsay RN) 908 (Given - Provider: Annalee Lindsay RN) ceFAZolin (ANCEF) 2 g in dextrose 100 mL premix IVPB (COMPLETED) 2 g, Intravenous, Administer over 30 Minutes, EVERY 8 HOURS NON-STANDARD, 3 doses, First dose on Tue11/12/24 at 1915, Last dose on Tue11/13/24 at 1115, Post-op/Post-Proc 2039 ($$New Bag$$ - Provider: Tyesha Alexandra RN) 0416 ($$New Bag$$ - Provider: Tyesha Alexandra RN)1107 (Stopped - Provider: Annalee Lindsay RN)1211 ($$New Bag$$ - Provider: Annalee Lindsay RN) cyanocobalamin (VITAMIN B12) tablet 1,000 mcg 1,000 mcg, Oral, DAILY, First dose on Tue11/13/24 at 0900, Until Discontinued 908 (Given - Provid er: Annalee Lindsay RN) dexAMETHasone (DECADRON) injection 10 mg (COMPLETED) 10 mg, Intravenous, EVERY 24 HOURS, 1 dose, First dose on Tue11/13/24 at 1215, 24 hours post op, Post-op/Post-Proc 1211 (Given - Provid er: Annalee Lindsay RN) Docusate (COLACE) capsule 100 mg 100 mg, Oral, 2 TIMES DAILY, First dose on Tue11/12/24 at 1700, Until Discontinued, Post-op/Post-Proc 162 (Given - Provider: Annalee Lindsay RN) 908 (Given - Provider: Annalee Lindsay RN) Escitalopram (LEXAPRO) tablet 10 mg 10 mg, Oral, DAILY, First dose on Tue11/13/24 at 0900, Until Discontinued 908 (Given - Provid er: Annalee Lindsay RN) fenofibrate (LOFIBRA) tablet 160 mg 160 mg, Oral, DAILY, First dose on Tue11/13/24 at 0900, Until Discontinued 908 (Given - Provid er: Annalee Lindsay RN) Folic acid (FOLVITE) tablet 1 mg 1 mg, Oral, DAILY, First dose on Tue11/13/24 at 0900, Until Discontinued 908 (Given - Provid er: Annalee Lindsay RN) Lisinopril (PRINIVIL) tablet 5 mg 5 mg, Oral, DAILY, First dose on Tue11/13/24 at 0900, Until Discontinued 908 (Given - Provid er: Annalee Lindsay RN) Loratadine (CLARITIN) tablet 10 mg 10 mg, Oral, DAILY, First dose on Tue11/13/24 at 0900, Until Discontinued 909 (Given - Provid er: Annalee Lindsay RN) Pantoprazole (PROTONIX) tablet DR 40 mg 40 mg, Oral, 2 TIMES DAILY BEFORE MEALS, First dose on Tue11/12/24 at 1715, Until Discontinued, Swallow whole; do not crush or chew., Indications: Continuation of Home Therapy, Inpt Stress Ulcer Prophylaxis 1825 (Given - Provider: Annalee Lindsay RN) 908 (Given - Provider: Annalee Lindsay RN) traZODone (DESYREL) tablet 100 mg 100 mg, Oral, DAILY AT BEDTIME, First dose on Tue11/12/24 at 2100, Until Discontinued 2039 (Given - Provider: Tyesha Alexandra RN) triamterene-hydrochlorothi azide (MAXZIDE) 75-50 MG per tablet 0.5 tablet 0.5 tablet, Oral, DAILY, First dose on Tue11/13/24 at 0900, Until Discontinued 09 (Given - Provid er: Annalee Lindsay RN) Continuous Medication Order 11/11/2024 11/12/2024 11/13/2024 Lactated ringers IV solution (CANCELED) Intravenous, at 75 mL/hr, CONTINUOUS, Starting on Tue11/12/24 at 0945, Until Tue11/12/24 at 1409, Pre-op/Pre-Proc 1020 ($$New Bag$$ - Provider : Annalee Lindsay RN)1209 (Paused - Provider: ALBIN Hendricks - Comment: Switch to gravity)1210 (Restarted - Provider: JOSE HendricksGRAD INTERN)1418 (Stopped - Provider: Annalee Lindsay RN) ROPivacaine HCl-NaCl 0.2-0.9 % On-Q pump Aaliyah-neural, CONTINUOUS, Starting on Tue11/12/24 at 1400, Until Tue11/13/24 at 1503, Recovery to Continue 1352 ($$New Bag$$ - Provider : Nona Acharya RN) Sodium chloride 0.9% IV solution Intravenous, at 100 mL/hr, CONTINUOUS, Starting on Tue11/12/24 at 1415, Until Tue11/13/24 at 1503, Convert IV to PRN adapter if adequate oral intake, Post-op/Post-Proc 1418 (Not Given - Provider: Annalee Lindsay RN - Reason: Other - Comment: Saline locked per fluid shortage ) PRN Medication Order 11/11/2024 11/12/2024 11/13/2024 acetaminophen (TYLENOL) tablet 1,000 mg (COMPLETED) 1,000 mg, Oral, ONCE DIRECTED, 1 dose, Starting on Tue11/12/24 at 0939, Until Tue11/12/24 at 1021, See admin instructions, Administer 1 hour preop., Pre-op/Pre-Proc 1021 (Given - Provider: Annalee Lindsay RN) Albuterol inhaler 2 puff 2 puff, Inhalation, EVERY 6 HOURS NEEDED, Starting on Tue11/12/24 at 1709, Until Tue11/13/24 at 1503, Wheezing, Wait at least one(1) full minute between inhalations bisacodyl (DULCOLAX) suppository 10 mg 10 mg, Rectal, DAILY NEEDED, Starting on Tue11/12/24 at 1410, Until Tue11/13/24 at 1503, constipation, Post-op/Post-Proc ceFAZolin (ANCEF) 2 g in dextrose 100 mL premix IVPB (COMPLETED) 2 g, Intravenous, Administer over 15 Minutes, SHANK PAPERER TO PROCEDURE, 1 dose, Starting on Tue11/12/24 at 0939, Until Tue11/12/24 at 1624, Other, Pre-operative antibiotic, Pre-op/Pre-Proc 1214 ($$New Bag$$ - Provider: Garry Lowery APRN-GRAD INTERN)1624 (Stopped - Provider: Annalee Lindsay RN) cloNIDine injection (CANCELED) NEEDED, Starting on Tue11/12/24 at 1322, Until Tue11/12/24 at 1352, Intra-op/Intra-Proc 1145 (Given - Provider: Gonsalo Blackwood MD - Comment: Given to the sterile field) HYDROmorphone (DILAUDID) injection 0.5 mg 0.5 mg, Intravenous, EVERY 4 HOURS NEEDED, Starting on Tue11/12/24 at 1410, Until Tue11/13/24 at 1503, Severe Pain, Post-op/Post-Proc Ondansetron 4mg/2ml (ZOFRAN) injection 4 mg 4 mg, Intravenous, EVERY 4 HOURS NEEDED, Starting on Tue11/12/24 at 1410, Until Tue11/13/24 at 1503, Nausea / Vomiting, Post-op/Post-Proc oxyCODONE (ROXICODONE) tablet 5-10 mg 5-10 mg, Oral, EVERY 4 HOURS NEEDED, Starting on Tue11/12/24 at 1410, Until Tue11/13/24 at 1503, moderate-severe pain, If pain unrelieved with oxycodone, contact pharmacist to enter order for Oxycodone ER 10mg PO Q12H for 3 days, Post-op/Post-Proc 1421 (Given - Provider: Annalee Lindsay RN)1826 (Given - Provider: Annalee Lindsay, RN)2211 (Given - Provider: Tyesha Alexandra, RN) 0416 (Given - Provider: Tyesha Alexandra RN)0913 (Given - Provider: Annalee Lindsay RN) senna-docusate (SENOKOT-S) 8.6-50 MG per tablet 2 tablet 2 tablet, Oral, 2 TIMES DAILY NEEDED, Starting on Tue11/12/24 at 1410, Until Tue11/13/24 at 1503, constipation, Post-op/Post-Proc Sodium chloride 0.9 % irrigation (CANCELED) NEEDED, Starting on Tue11/12/24 at 1153, Until Tue11/12/24 at 1352, Intra-op/Intra-Proc 1153 (Given - Provider: Gonsalo Blackwood MD - Comment: Attached to irrigation tubing intraoperative) Sodium chloride 0.9 % irrigation (CANCELED) NEEDED, Starting on Tue11/12/24 at 1130, Until Tue11/12/24 at 1352, Intra-op/Intra-Proc 1130 (Given - Provider: Gonsalo Blackwood MD - Comment: Given to the sterile field) total joint mixture (no clonidine) premade bag (CANCELED) NEEDED, Starting on Tue11/12/24 at 1145, Until Tue11/12/24 at 1352, Intra-op/Intra-Proc 1145 (Given - Provider: Gonsalo Blackwood MD - Comment: Given to the sterile field) tranexamic acid (LYSTEDA) tablet 1,950 mg (COMPLETED) 1,950 mg, Oral, ONCE DIRECTED, 1 dose, Starting on Tue11/12/24 at 0939, Until Tue11/12/24 at 1021, See admin instructions, Administer 2 hours preop, Pre-op/Pre-Proc 1021 (Given - Provider: Annalee Lindsay RN) Vancomycin (VANCOCIN) injection (CANCELED) NEEDED, Starting on Tue11/12/24 at 1130, Until Tue11/12/24 at 1352, Intra-op/Intra-Proc 1130 (Given - Provider: Gonsalo Blackwood MD - Comment: Given to the sterile field) Zolpidem (AMBIEN) tablet 5 mg 5 mg, Oral, DAILY AT BEDTIME NEEDED, Starting on Tue11/12/24 at 1410, Until Tue11/13/24 at 1503, Sleep, Post-op/Post-Proc Scheduled Medication Order 04/03/2025 04/04/2025 04/05/2025 acetaminophen (Tylenol) tablet 975 mg (COMPLETED) 975 mg, oral, Once, On Tue04/05/25 at 0105, For 1 dose, If ordered PRN for pain, nurse is permitted to administer this medication for higher pain scores based on patient preference? Yes 0123 (Given - Provid er: Miri Granados RN) folic acid (Folvite) tablet 1 mg (COMPLETED) 1 mg, oral, Once, On Tue04/05/25 at 0715, For 1 dose 07 (Given - Provid er: Sharon Vasquez RN) LORazepam (Ativan) tablet 1 mg (COMPLETED) 1 mg, oral, Once, On Tue04/05/25 at 0435, For 1 dose 0446 (Given - Provid er: Melody Wilkerson RN) multivitamin with minerals 1 tablet (COMPLETED) 1 tablet, oral, Once, On Tue04/05/25 at 0715, For 1 dose 0727 (Given - Provid er: Sharon Vasquez RN) ondansetron ODT (Zofran-ODT) disintegrating tablet 4 mg (COMPLETED) 4 mg, oral, Once, On Tue04/05/25 at 0650, For 1 dose 0650 (Given - Provid er: Melody Wilkerson RN) thiamine (Vitamin B-1) tablet 100 mg (COMPLETED) 100 mg, oral, Once, On Tue04/05/25 at 0715, For 1 dose 07 (Given - Provid er: Sharon Vasquez RN) PRN Medication Order 04/03/2025 04/04/2025 04/05/2025 LORazepam (Ativan) tablet 0.5 mg(Linked Group 1) 0.5 mg, oral, Every 2 hour PRN, CIWA score 6-7 or HR >100 BPM, Starting on Tue04/05/25 at 0703 0727 (Given - Provid er: Sharon Vasquez RN) LORazepam (Ativan) tablet 1 mg(Linked Group 1) 1 mg, oral, Every 2 hour PRN, CIWA score 8-9, Starting on Tue04/05/25 at 0703 0727 (See Alternativ e - Provider: Sharon Vasquez RN) LORazepam (Ativan) tablet 2 mg(Linked Group 1) 2 mg, oral, Every 2 hour PRN, CIWA score greater than 9, Starting on Tue04/05/25 at 0703 0727 (See Alternativ e - Provider: Sharon Vasquez RN) Linked Groups Order Group 1: LORazepam (Ativan) tablet 0.5 mgJump to med 0.5 mg, oral, Every 2 hour PRN, CIWA score 6-7 or HR >100 BPM, Starting on Tue04/05/25 at 702 Or LORazepam (Ativan) tablet 1 mgJump to med 1 mg, oral, Every 2 hour PRN, CIWA score 8-9, Starting on Tue04/05/25 at 07 Or LORazepam (Ativan) tablet 2 mgJump to med 2 mg, oral, Every 2 hour PRN, CIWA score greater than 9, Starting on Tue04/05/25 at 0703 Source Comments (unrecognize d section and content) In the event this informatio n is protected by the Federal Confidentiality of Alcohol and Drug Abuse Patient Records regulations: The Federal rules restrict any use of the information to criminally investigate or prosecute any alcohol or drug abuse patient.[facility] the event this information is protected by the Federal Confidentiality of Alcohol and Drug Abuse Patient Records regulations: The Federal rules restrict any use of the information to criminally investigate or prosecute any alcohol or drug abuse patient.[facility] the event this information is protected by the Federal Confidentiality of Alcohol and Drug Abuse Patient Records regulations: The Federal rules restrict any use of the information to criminally investigate or prosecute any alcohol or drug abuse patient.[facility]In the event this information is protected by the Federal Confidentiality of Alcohol and Drug Abuse Patient Records regulations: The Federal rules restrict any use of the information to criminally investigate or prosecute any alcohol or drug abuse patient.[facility]In the event this information is protected by the Federal Confidentiality of Alcohol and Drug Abuse Patient Records regulations: The Federal rules restrict any use of the information to criminally investigate or prosecute any alcohol or drug abuse patient.[facility]In the event this information is protected by the Federal Confidentiality of Alcohol and Drug Abuse Patient Records regulations: The Federal rules restrict any use of the information to criminally investigate or prosecute any alcohol or drug abuse patient.[facility]In the event this information is protected by the Federal Confidentiality of Alcohol and Drug Abuse Patient Records regulations: The Federal rules restrict any use of the information to criminally investigate or prosecute any alcohol or drug abuse patient.[facility]In the event this information is protected by the Federal Confidentiality of Alcohol and Drug Abuse Patient Records regulations: The Federal rules restrict any use of the information to criminally investigate or prosecute any alcohol or drug abuse patient.[facility]In the event this information is protected by the Federal Confidentiality of Alcohol and Drug Abuse Patient Records regulations: The Federal rules restrict any use of the information to criminally investigate or prosecute any alcohol or drug abuse patient.[facility]In the event this information is protected by the Federal Confidentiality of Alcohol and Drug Abuse Patient Records regulations: The Federal rules restrict any use of the information to criminally investigate or prosecute any alcohol or drug abuse patient.[facility] HospitalIn the event this information is protected by the Federal Confidentiality of Alcohol and Drug Abuse Patient Records regulations: The Federal rules restrict any use of the information to criminally investigate or prosecute any alcohol or drug abuse patient.[facility]In the event this information is protected by the Federal Confidentiality of Alcohol and Drug Abuse Patient Records regulations: The Federal rules restrict any use of the information to criminally investigate or prosecute any alcohol or drug abuse patient.[facility]In the event this information is protected by the Federal Confidentiality of Alcohol and Drug Abuse Patient Records regulations: The Federal rules restrict any use of the information to criminally investigate or prosecute any alcohol or drug abuse patient.[facility] HospitalIn the event this information is protected by the Federal Confidentiality of Alcohol and Drug Abuse Patient Records regulations: The Federal rules restrict any use of the information to criminally investigate or prosecute any alcohol or drug abuse patient.[facility]In the event this information is protected by the Federal Confidentiality of Alcohol and Drug Abuse Patient Records regulations: The Federal rules restrict any use of the information to criminally investigate or prosecute any alcohol or drug abuse patient.[facility] HospitalIn the event this information is protected by the Federal Confidentiality of Alcohol and Drug Abuse Patient Records regulations: The Federal rules restrict any use of the information to criminally investigate or prosecute any alcohol or drug abuse patient.[facility]In the event this information is protected by the Federal Confidentiality of Alcohol and Drug Abuse Patient Records regulations: The Federal rules restrict any use of the information to criminally investigate or prosecute any alcohol or drug abuse patient.[facility]In the event this information is protected by the Federal Confidentiality of Alcohol and Drug Abuse Patient Records regulations: The Federal rules restrict any use of the information to criminally investigate or prosecute any alcohol or drug abuse patient.[facility] HospitalIn the event this information is protected by the Federal Confidentiality of Alcohol and Drug Abuse Patient Records regulations: The Federal rules restrict any use of the information to criminally investigate or prosecute any alcohol or drug abuse patient.[facility]In the event this information is protected by the Federal Confidentiality of Alcohol and Drug Abuse Patient Records regulations: The Federal rules restrict any use of the information to criminally investigate or prosecute any alcohol or drug abuse patient.[facility] HospitalIn the event this information is protected by the Federal Confidentiality of Alcohol and Drug Abuse Patient Records regulations: The Federal rules restrict any use of the information to criminally investigate or prosecute any alcohol or drug abuse patient.[facility] HospitalIn the event this information is protected by the Federal Confidentiality of Alcohol and Drug Abuse Patient Records regulations: The Federal rules restrict any use of the information to criminally investigate or prosecute any alcohol or drug abuse patient.[facility] HospitalIn the event this information is protected by the Federal Confidentiality of Alcohol and Drug Abuse Patient Records regulations: The Federal rules restrict any use of the information to criminally investigate or prosecute any alcohol or drug abuse patient.[facility] <item> Privacy Markings (unrecogniz ed section and content) Section Author: Tomasa Black PROHIBITION ON REDISCLOSURE OF CONFIDENTIAL INFORMATION This notice accompanies a disclosure of information concerning a client made to you with the consent of such client. Goals (unrecognized section and content) Goals may be documented in a n alternate sectionGoals may be documented in an alternate sectionGoals may be documented in an alternate sectionGoals may be documented in an alternate sectionGoals may be documented in an alternate sectionGoals may be documented in an alternate sectionGoals may be documented in an alternate sectionGoals may be documented in an alternate sectionGoals may be documented in an alternate sectionGoals may be documented in an alternate sectionGoals may be documented in an alternate sectionGoals may be documented in an alternate sectionGoals may be documented in an alternate sectionGoals may be documented in an alternate sectionGoals may be documented in an alternate sectionGoals may be documented in an alternate sectionGoals may be documented in an alternate sectionGoals may be documented in an alternate sectionGoals may be documented in an alternate sectionGoals may be documented in an alternate sectionGoals may be documented in an alternate section FOR RECORDS PERTAINING TO PATIENTS WHO ARE OR HAVE BEEN ENROLLED IN A CHEMICAL DEPENDENCY/SUBSTANCEABUSE PROGRAM, SOME INFORMATION MAY BE OMITTED. This clinical summary was aggregated from multiple sources. Caution should be exercised in using it in the provision of clinical care. This summary normalizes information from multiple sources, and as a consequence, information in this document may materially change the coding, format and clinical context of patient data. In addition, data may be omitted in some cases. CLINICAL DECISIONS SHOULD BE BASED ON THE PRIMARY CLINICAL RECORDS. [facility] [employer] [facility]. provides no warranty or guarantee of the accuracy or completeness of information in this document.
--- NOTE | 2025-09-14 17:08 | PCA ---
THIS US TOOK SIGNED RAMP CONTRACT, MADE COPY AND SENT TO THE FLOOR
[2025-09-14 17:15] LABS: Hematocrit 39.7 % (37-47); Hemoglobin 13.0 g/dL (12.0-15.0); Immature Granulocytes Count 0.010 X10^3/uL (0.0-0.0); Mean Corp Hgb Conc 32.7 g/dL (32-36); Mean Corpuscular Volume 95.4 fL (81-99); Mean Platelet Vol. 9.8 fl (6.2-12.0); NRBC Flagged by Analyzer 0 % (0-5); Platelet Count 185 K/mm3 (150-450); RBC Distribution Width CV 14.7 % (11.6-14.6); RBC Distribution Width SD 51.9 fl (35.1-43.9); Red Blood Count 4.16 M/mm3 (4.2-5.4); White Blood Count 3.8 K/mm3 (4.4-11.0)
[2025-09-14 17:25] LABS: Prothrombin Time (Protime)PT. 12.7 SECONDS (11.7-14.9)
[2025-09-14 17:42] LABS: Mucous, Urine 0 SEEN /hpf (<or=2+)
[2025-09-14 17:44] LABS: Alcohol, Blood (Medical)-Serum 199.0 mg/dL (<=10.0)
[2025-09-14 17:45] LABS: AST(SGOT) 55 U/L (<=31); Alanine Aminotransfer ALT/SGPT 40 U/L (<=34); Albumin, Serum 3.9 g/dL (3.4-4.8); Alkaline Phosphatase 80 U/L (35-104); Anion Gap 13 (5-15); BUN 6 mg/dL (4-19); BUN/Creat Ratio 8.1 RATIO (10-20); Bilirubin, Direct 0.15 mg/dL (0.00-0.30); Calcium,Total 8.7 mg/dL (7.6-11.0); Carbon Dioxide 24.8 mmol/L (21.0-32.0); Chloride 97 mmol/L (98-108); Estimated Creatinine Clearance 75.49 ml/min (50-250); Globulin 2.5 g/dL (2.2-4.2); Glucose 100 mg/dL (70-99); Magnesium 1.9 mg/dL (1.5-2.2); Potassium 3.8 mmol/L (3.3-5.1)
[2025-09-14 17:48] LABS: Color, Urine Yellow (Yellow); Glucose, Dipstick Normal (Normal); Ketone-Dipstick Negative (Negative); Leukocyte Esterase-Dipstick Negative /ul (Negative); Nitrite-Dipstick Negative (Negative); Occult Blood-Urine Negative /ul (Negative); Protein-Dipstick Negative (Negative); Specific Gravity, Urine 1.010 (1.002-1.030); Urine Bilirubin Dipstick Negative (Negative)
[2025-09-14 18:00] LABS: Squamous Epithelial Cells - UA 0-5 SEEN /hpf (5-10)
[2025-09-14 18:11] LABS: Barbiturate Urine NEGATIVE (< 200 ng/mL); Benzodiazepine Urine PRESUMPTIVE POSITIVE (< 200 ng/mL); PCP Urine NEGATIVE (< 25 ng/mL); THC Urine NEGATIVE (< 50 ng/mL)
--- NOTE | 2025-09-14 18:25 | PCM.HP.STD ---
[facility] - General General Date of Admission: 09/14/25 Date of Service: 09/14/25 Chief Complaint: Alcohol abuse with acute intoxication and desire for detox HPI Narrative FERNANDO GALEANO, is a 65 F who presented to [facility] ED on 09/14/2025 with alcohol abuse with acute intoxication and desire for detox. Patient lives at home alone, has family that lives nearby. Medical history significant for hypertension, hyperlipidemia, asthma, GERD, dysphagia with esophageal dysmotility and gout. Patient also has history of intermittent heavy alcohol use, has never gone through detox before. Sadly, her committed suicide within the past year. Patient was pink slipped to a facility in [place] over the summer for suicidal ideation, and per family this was a poor experience. Since then she has been at home and has been drinking fairly consistently. Reports that some days she will not start drinking until the evening and then drink a bottle of wine before bed. She does have days where she will start drinking during the day and will occasionally have hard liquor. She denies any history of alcohol withdrawal. Today family found the patient on the ground at home intoxicated, so they brought her to the ED for further evaluation. In the ED her alcohol level was 199. She was mildly hypertensive to the 100s over 50s, and normal sinus rhythm with heart rate in the 60s, afebrile and stable on room air at rest. CBC and BMP were benign. LFTs were very mildly elevated. ED physician discussed with patient and family, and patient was agreeable to coming into the hospital for detox. Hospitalist was then contacted for admission. I saw the patient at bedside in the ED, son and daughter were present. Patient was laying back in bed fairly comfortably and in no acute distress. Her speech was mildly slowed suspect due to degree of intoxication but she was alert and oriented x 3 and answering questions appropriately for me. Importantly, per [facility] report patient has been on diazepam 5 mg 3 times daily since January. On discussion with patient, she notes that her GI doctor put her on this for her dysphagia and esophageal dysmotility. I reviewed [facility] and her GI doctor in [place] did in fact trial her on diazepam 30 minutes before meals and patient had good improvement in symptoms, so she was then started on diazepam 3 times daily before meals. Per [facility] she has been filling this fairly regularly, but she notes she does not take it every day as she often does not have a strong appetite and does not eat 3 full meals. She reports taking her other home medications as prescribed. She denies any history of withdrawal symptoms in the past, but she and family note that she rarely goes more than a few days without drinking. No other acute concerns currently. Will be admitted for further management. [facility] Medical History (Updated 09/14/25 @ 18:[address] 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 Home Medications ?Medication ?Instructions ?Recorded ?Last Taken ?Type magnesium oxide 400 mg (241.3 mg 400 mg PO DAILY 04/08/15 Unknown History magnesium) tablet omeprazole 20 mg capsule,delayed 20 mg PO DAILY 04/08/15 Unknown History release pravastatin 40 mg tablet 40 mg PO DAILY 11/10/15 Unknown History mometasone 220 mcg/actuation(60 220 mcg inhalation BID 02/04/16 Unknown History doses) breath activated powder inhaler (Asmanex Replisehaler) allopurinol 100 mg tablet 100 mg PO DAILY 08/05/23 Unknown History baclofen 10 mg tablet 5 - 10 mg PO TID PRN PRN muscle 09/14/25 Unknown History spasm carvedilol 12.5 mg tablet 12.5 mg PO BID 09/14/25 Unknown History cetirizine 10 mg tablet (24Hour 10 mg PO DAILY PRN allergies 09/14/25 Unknown History Allergy) diazepam 5 mg tablet 5 mg PO TID 09/14/25 Unknown History fenofibrate 160 mg tablet 160 mg PO DAILY 09/14/25 Unknown History folic acid 1 mg tablet 1 mg PO DAILY 09/14/25 Unknown History omega-3 acid ethyl esters 1 gram 2 cap PO BID 09/14/25 Unknown History capsule pantoprazole 40 mg tablet,delayed 40 mg PO BID 09/14/25 Unknown History release trazodone 100 mg tablet 100 mg PO QHS 09/14/25 Unknown History triamterene 37.5 1 cap PO DAILY 09/14/25 Unknown History mg-hydrochlorothiazide 25 mg capsule Allergy/AdvReac Type Severity Reaction Status Date / Time No Known Allergies Allergy Verified 09/14/25 15:59 Social History Smoking Status: Never smoker ROS Constitutional Constitutional: Denies chills, fatigue, fever(s) or weakness Cardiovascular Cardiovascular: Denies chest pain Respiratory/Chest Respiratory/Chest: Denies shortness of breath at rest Gastrointestinal Gastrointestinal: Reports nausea; Denies abdominal pain, constipation, diarrhea or vomiting Genitourinary Genitourinary: Denies dysuria Musculoskeletal Musculoskeletal: Denies arthralgias or myalgias Neurologic Neurologic: Denies dizziness, focal weakness, headache(s), numbness or tingling Psychiatric Psychiatric: Reports anxiety and depression Vital Signs Vital Signs Vital Signs: 09/14/25 15:55 09/14/25 16:55 09/14/25 17:00 Temperature 97.4 F L Temperature Source Temporal Pulse Rate 55 L 62 64 Respiratory Rate 16 18 18 Blood Pressure 96/47 L 113/53 L 113/53 L Blood Pressure Mean 63 73 73 Pulse Ox 96 100 99 Oxygen Delivery Method Room Air Room Air 09/14/25 17:45 09/14/25 18:00 Temperature Temperature Source Pulse Rate 64 70 Respiratory Rate 17 16 Blood Pressure 103/55 L 117/53 L Blood Pressure Mean 69 74 Pulse Ox 99 99 Oxygen Delivery Method Room Air Weight Weight: 89.7 kg Body Mass Index (BMI) 32.9 Physical Exam Const alert, oriented x3 and no apparent distress Constitutional Narrative: Elderly female, class I obesity, mildly fatigued with mild slowed speech noted, otherwise laying back in bed comfortably and answering questions appropriately, in no acute distress. General Appearance: cooperative and comfortable HEENT normocephalic, head/scalp atraumatic, hearing grossly normal bilaterally, nasal mucous membranes and turbinates normal and moist oral mucous membranes Eyes PERRL, EOMs intact bilaterally and conjunctivae normal Neck full ROM Chest inspection of chest normal Resp normal respiratory effort, normal air movement, no use of accessory muscles and clear to auscultation bilaterally Cardio regular rate, regular rhythm, no murmurs and peripheral pulses 2+ throughout GI normal to inspection, nondistended, normoactive bowel sounds, soft to palpation, non-tender and non-distended Back/Spine normal ROM Extremity normal to inspection, full ROM and no pedal edema Skin no rashes or lesions noted Psych mental status grossly normal Mood & Affect: depressed and anxious Results Lab / Micro Data 09/14/25 17:06 09/14/25 17:06 Labs: Laboratory Results - last 24 hr 09/14/25 17:06: WBC 3.8 L, RBC 4.16 L, Hgb 13.0, Hct 39.7, MCV 95.4, MCH 31.3, MCHC 32.7, RDW Std Deviation 51.9 H, RDW Coeff of Jerrod 14.7 H, Plt Count 185, MPV 9.8, Immature Gran % (Auto) 0.300, Neut % (Auto) 32.2 L, Lymph % (Auto) 56.9 H, [place] % (Auto) 9.0, Eos % (Auto) 0.5, Baso % (Auto) 1.1 H, Absolute Neuts (auto) 1.2 L, Absolute Lymphs (auto) 2.14, Nucleated RBC % 0, PT 12.7, INR 0.9, Sodium 135, Potassium 3.8, Chloride 97 L, Carbon Dioxide 24.8, Anion Gap 13, BUN 6, Creatinine 0.73, Estim Creat Clear Calc 75.49, Est GFR (MDRD) Non-Af 91, BUN/Creatinine Ratio 8.1 L, Glucose 100 H, Calcium 8.7, Magnesium 1.9, Total Bilirubin 0.23, Direct Bilirubin 0.15, AST 55 H, ALT 40 H, Alkaline Phosphatase 80, Total Protein 6.4, Albumin 3.9, Globulin 2.5, Ethyl Alcohol 199.0 H 09/14/25 17:38: Urine Color Yellow, Urine Clarity Clear, Urine pH 7.0, Ur Specific [place] 1.010, Urine Protein Negative, Urine Glucose (UA) Normal, Urine Ketones Negative, Urine Occult Blood Negative, Urine Nitrite Negative, Urine Bilirubin Negative, Urine Urobilinogen Normal, Ur Leukocyte Esterase Negative, Urine RBC Not Reportable, Urine WBC 0-5 SEEN, Ur Squamous Epith Cells 0-5 SEEN, Urine Bacteria RARE, Urine Mucus 0 SEEN, Urine Opiates Screen NEGATIVE, U Buprenorphine Qual NEGATIVE, Ur Oxycodone Screen NEGATIVE, Urine Methadone Screen NEGATIVE, Urine Fentanyl Screen NEGATIVE, Ur Barbiturates Screen NEGATIVE, Ur Phencyclidine Scrn NEGATIVE, Ur Amphetamines Screen NEGATIVE, U Benzodiazepines Scrn PRESUMPTIVE POSITIVE, Urine Cocaine Screen NEGATIVE, U Cannabinoids Screen NEGATIVE Assessment & Plan Assessment/Plan (1) Alcohol use disorder: (2) Alcohol intoxication: PLAN: Plan Patient is a 65-year-old female who presented to [facility] ED on 09/14/2025 with alcohol abuse with acute intoxication and desire for detox. 1. Alcohol abuse with acute intoxication and desire for detox ? Admit under patient status to [facility]. Case management consulted. Patient drinking about a bottle of wine daily with hard liquor on some days as well. Last drink on day of admission. Was found on the floor at home by family acutely intoxicated. Alcohol level 199 in ED. Patient with mild slowed speech noted on my exam but was alert and oriented x 3 and answering questions appropriately, and given that she was able to consent for alcohol detox. Denies history of withdrawal symptoms. However importantly, she is on diazepam 5 mg 3 times daily as needed for dysphagia with esophageal dysmotility as below. She has been on diazepam since January. Was instructed to take 5 mg 30 minutes before each meal, but she has not been taking this regularly because she has a poor appetite and does not eat 3 meals daily. Given this, I will place her on CIWA protocol and schedule diazepam 5 mg before meals while here. Will not order fixed phenobarbital or Ativan taper. If patient has elevated CIWA scores despite scheduled diazepam, can order as needed Ativan for this. Other as needed medications ordered per alcohol withdrawal order set. Patient and family unsure on outpatient versus inpatient alcohol treatment on discharge, appreciate case management recommendations. 2. Mild elevated LFTs ? AST 55, ALT 40 on admit. Presume secondary to alcohol abuse as above. No need to monitor further labs while inpatient, will need outpatient follow-up. 3. Dysphagia with esophageal dysmotility, GERD ? Follows with GI in [place], [place]. Reviewed last office note in January in [facility] [place]. She was trialed on diazepam 5 mg 30 minutes before meals with good improvement in esophageal dysmotility symptoms. As above, has not taken diazepam regularly due to poor food intake and not eating 3 meals daily. Will schedule diazepam 5 mg 3 times daily AC while inpatient as above. Continue home PPI. 4. Anxiety/depression ? Patient with significant anxiety/depression since her by suicide about a year ago. She was pink slipped on hospital in [place] this summer for suicidal ideation and this was a poor experience. She denies any suicidal ideation at this time. From [facility] [place] review, appears she was on escitalopram and bupropion at some point this year but they are not on her current med list. Patient does not believe she is taking them. No further inpatient treatment, will need close outpatient follow-up on discharge. 5. Hypertension/hyperlipidemia ? Mildly hypertensive to the 100s over 50s on admit. Okay to continue home Coreg but will hold home triamterene?hydrochlorothiazide for now, restart as needed. Continue home statin and fenofibrate. 6. Asthma ? Stable on room air at rest, not in acute exacerbation. Continue home inhaler. 7. Chronic low back pain with muscle spasms ? Reviewed [facility] records. She is not on narcotic pain medications due to history of chronic benzo use and alcohol abuse as above. She is on baclofen up to 3 times daily as needed for muscle spasms and was told clearly not to take this within 4 hours of taking her diazepam. Given concern for using scheduled diazepam as above and for patient not taking baclofen regularly, will hold baclofen at this time. Tylenol as needed for pain control. 8. History of gout ? Continue home allopurinol. DVT prophylaxis: Lovenox CODE STATUS: Full code, verified Expected disposition: TBD Total clinical time spent by myself addressing the patient's medical issues, reviewing all the data, and collaborating with patient's care team: 83 minutes. Charges/Coding Visit Charges Inpatient E&M: 39862 Init Hosp L3
--- OUTSIDE RECORDS SUMMARY | 2025-09-14 18:46 | XMS RPT_ITS | CCD ---
Author Organization [facility] ion Partnership [facility] CliniSymd Care Team Providers Care Orange Grower Name Role Phone Elaine Oquendo Unavailable Erich Garcia Unavailable Stu Lei Unavailable Skyler Joya Unavailable Myrtle Kay Unavailable Unavailable Dragan Weiner Unavailable Unavailable Unavailable Unavailable Fernie Paredes DO Primary Care Provider Aftab Hernández Unavailable [phone] Naty Bhakta MD Unavailable [phone] Fernie Paredes DO Primary Care Provider Fernie Paredes Unavailable Aftab Hernández Unavailable Naty Bhakta MD Unavailable [phone] Fernie Paredes DO Primary Care Provider Roxann Yan MD Primary Care Provider [phone] Fernie Paredes Unavailable Unavailable Larry Ervin Unavailable [...] Aftab Mcgill Unavailable Naty Bhakta MD Unavailable [phone] Fernie Paredes DO Primary Care Provider Fernie Paredes DO Primary Care Provider Unavail able Akua Warren OD Unavailable Perry Reyna Unavailable [phone] Fernie Paredes DO Primary Care Provider Ciesa STAFF SOFTWARE ENGINEER, [facility] Primary Care Unavailable Bre, Monse Referring Unavailable Wapato, Monse Attending Unavailable Ciesa STAFF SOFTWARE ENGINEER, [facility] Primary Care Unavailable [place], Monse Attending Unavailable Bre, Monse Referring Unavailable Ciesa STAFF SOFTWARE ENGINEER, [facility] Primary Care Unavailable Bre, Monse Attending Unavailable Bre, Monse Referring Unavailable Bre, Monse Attending Unavailable Ciesa STAFF SOFTWARE ENGINEER, [facility] Primary Care Unavailable [place], Monse Referring Unavailable Ciesa STAFF SOFTWARE ENGINEER, [facility] Care Unavailable Bre, Monse Attending Unavailable [place], Monse Referring Unavailable Ciesa STAFF SOFTWARE ENGINEER, [facility] Primary Care Unavailable [place], Monse Referring Unavailable Bre, Monse Attending Unavailable Ciesa STAFF SOFTWARE ENGINEER, Elaine Primary Care Unavailable Bre, Monse Referring Unavailable Bre, Monse Attending Unavailable Ciesa STAFF SOFTWARE ENGINEER, [facility] Unavailable Bre, Monse Referring Unavailable Bre, Monse Attending Unavailable Ciesa STAFF SOFTWARE ENGINEER, [facility] Unavailable Wapato, Monse Referring Unavailable [place], Monse Attending Unavailable Ciesa STAFF SOFTWARE ENGINEER, [facility] Unavailable Bre, Monse Referring Unavailable Bre, Monse Attending Unavailable Ciesa STAFF SOFTWARE ENGINEER, [facility] Care Unavailable [place], Monse Referring Unavailable Bre, Monse Attending Unavailable Ciesa STAFF SOFTWARE ENGINEER, [facility] Unavailable [place], Monse Attending Unavailable [place], Monse Referring Unavailable Ciesa STAFF SOFTWARE ENGINEER, [facility] Unavailable JOHN, ADAMSON Attending Unavailable JOHN, ADAMSON Referring Unavailable Ciesa STAFF SOFTWARE ENGINEER, [facility] Unavailable [place], Monse Attending Unavailable Bre, Monse Referring Unavailable Ciesa STAFF SOFTWARE ENGINEER, [facility] Unavailable [place], Monse Referring Unavailable Bre, Monse Attending Unavailable Ciesa STAFF SOFTWARE ENGINEER, [facility] Unavailable Bre, Monse Referring Unavailable [place], Monse Attending Unavailable Ciesa STAFF SOFTWARE ENGINEER, [facility] Unavailable [place], Monse Referring Unavailable [place], Monse Attending Unavailable Ciesa STAFF SOFTWARE ENGINEER, [facility] Unavailable [place], Monse Attending Unavailable Bre, Monse Referring Unavailable Ciesa STAFF SOFTWARE ENGINEER, [facility] Care Unavailable [place], Monse Referring Unavailable [place], Monse Attending Unavailable Ciesa STAFF SOFTWARE ENGINEER, [facility] Unavailable Bre, Monse Attending Unavailable Bre, Monse Referring Unavailable Ciesa STAFF SOFTWARE ENGINEER, [facility] Unavailable [place], Monse Attending Unavailable Bre, Monse Referring Unavailable Bre, Monse Attending Unavailable Ciesa STAFF SOFTWARE ENGINEER, [facility] Unavailable [place], Monse Referring Unavailable Ciesa STAFF SOFTWARE ENGINEER, [facility] Unavailable Bre, Monse Attending Unavailable EDDI RANDHAWA Referring Unavailable FERNIE PAREDES Primary Care Unavailable MANOHAR RAO Attending Unavailable ROGELIO TORIBIO Consulting Unavailabl LUKE Colbert Admitting Unavailable FERNIE PAREDES Primary Care Unavailable FERNIE PAREDES Primary Care Unavailable ELANA GARCIA Admitting Unavailable DEONDRE LORENZ M.D. Consulting Unavailabl MARTELL Osorio Attending Unavailable Aftab Hernández Unavailable [phone] Naty Bhakta MD Unavailable Fernie Paredes DO M Primary Care Provider Brown DO Fernie M. Primary Care Provider Yumiko Delilah DAVALOS Skyler Unavailable [phone] BROWN FERNIE M. Primary Care Unavailable NEGRITO, [...] FERNIE M. Primary Care Unavailable AGUILAR ALEXANDRA Referring Unavailable Brown DO Fernie M Primary Care Provider NATY BHAKTA Attending Unavailable BROWN, FERNIE M Referring Unavailable BROWN, FERNIE M Primary Care Unavailable Lucinda Hernándezd M Unavailable NEGRITO, ATISH P Attending Unavailable BROWN, [...] Hernándezd M Unavailable Naty Bhakta MD Unavailable Reggie DO Fernie M Primary Care Provider [phone] Aftab Hernández Unavailable Unavailabl e Reggie DAVALOS, [...] DO Primary Care Provider Aftab Hernández Unavailable [phone] Naty Bhakta MD Unavailable FERNIE PAREDES M [...] Care Unavailable SELF, SELF Referring Unavailable GONSALO BLAKCWOOD Attending Unavailable BROWN, FERNIE M Primary Care [...] Crawley Attending Unavailabl e BROWN, FERNIE M Referring Unavailable BROWN, FERNIE [...] Attending Unavailable GONSALO BLACKWOOD Referring Unavailable BROWN, FENRIE M Primary Care Unavailable KATINA WILLIAM Referring Unavailable KATINA WILLIAM Attending Unavailable Allergies Allergy Classification Reported Allergen(s) Allergy Type Date of Onset Reaction(s) Facility (3 sources) Lisinopril Drug Allergy 0 Cough [facility] Work Phone: (20 sources) NSAIDs Propensity to adverse reactions to drug 2 [facility] (20 sources) Seasonal allergy; Translations: [SEASONAL ALLERGIES] Allergy to substance 4 Other: See Comments [facility] Work Phone: (6 sources) Non-steroidal anti-inflammato ry agent; Translations: [NSAIDS (NON-STEROIDAL ANTI-INFLAMMATO RY DRUG)] Propensity to adverse reactions to drug 4 Other (See Comments) [facility] (1 source) ALLERGIES NOT ON FILE; Translations: [...] 11:00pm Start: 04-29-2014 take 1 capsule by [facility] twice daily acebutolol (SECTRAL) 200 mg capsule Indications: PVC's (premature ventricular contractions) Take 1 capsule by mouth twice daily. 180 capsule 3 02/04/2017 Suspended Comment on above: Dr Farias Take 1 capsule by [facility] twice daily. 1 ml alirocumab 75 mg/ml [...] eyes daily. Given by Dr. Warren at [facility] 0 11/09/2021 Active linezolid 600 mg oral [...] by Nasal route once for 1 dose. [place] into the nose as directed. Call 911. If no response in 2 minutes use a new nasal spray in other nostril. Repeat until help arrives. 1 Each 11/12/2024 12/31/2024 Discontinued omega-3 acid ethyl esters (snf) 1000 mg oral capsule (20 sources) Start: [...] 40 mg by mouth. polyethylene glycol 3350 73910 mg powder for oral solution (1 source) [...] Discontinued Start: 07-06-[address] [facility] every four hours as needed for [...] robert th every 6 hours as needed. [id number] 200 actuat albuterol 0.09 mg/actuat metered dose [...] mg tab(s) Indications: PAF (paroxysmal atrial fibrillation) ([facility]) Take 1 tablet by mouth twice daily. [...] Start: 06-17-2022 End: 06-17-2022 Bupivacaine-Epinephrine (MARCAINE;SENSORCAINE-MPF) 0.5% -[id number] injection calcium chloride 0.0014 meq/ml / potassium [...] mg docusate sodium 50 mg / sennosides, snf 8.6 mg oral tablet (1 source) Start: [...] 11:00pm Start: 08-01-2014 take 1 capsule by [facility] twice daily omeprazole (PRILOSEC) 20 mg capsule [...] above: Mail order. Take 1 capsule by [facility] twice daily. 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 Pneumonia (except that caused by tuberculosis or [...] fashion. The patient was prepped with chlorhexidine. [facility] Radiology Study observation (narrative) [facility] MAGNESIUMon 06-20-2025 Magnesium [Mass/Vol] 1.9 mg/dL Normal 1.6-2.3 [facility] Comment on above: Performed By: #### M G #### Testing performed at [address] [address] MRI FOOT LEFT WITHOUT CONTRA STon 06-20-2025 [...] 4. No MRI findings of cellulitis. Normal [facility] 25 0H VITAMIN D LEVELon 05-25 25 0H VITAMIN D LEVEL 39.5 NG/ML Normal [facility] Comment on above: Result Comment: DEFICIENT <20 NG/ML INSUFFICIENT 20-<30 NG/ML SUFFICIENT 30-100 NG/ML POTENTIAL TOXICITY >100 NG/ML Performed By: #### T SH2, FEPRO, T42, VITD #### Testing performed at [address] [address] CBCon 06-15-2025 ABSOLUTE BAS 0.0 10*3/uL Normal 0.0-0.2 [facility] Comment on above: Performed By: #### A CBC, BMPF #### Testing performed at [address] [address] ABSOLUTE EOS 0.0 10*3/uL Normal 0.0-0.7 [facility] Comment on above: Performed By: #### A CBC, BMPF #### Testing performed at [address] [address] ABSOLUTE NEUTROPHIL COUNT 2.9 10*3/uL Normal 1.4-6.5 [facility] Comment on above: Performed By: #### A CBC, BMPF #### Testing performed at [address] [address] Basophils/100 WBC (Bld) 0.6 % Normal 0.0-2.0 [facility] Comment on above: Performed By: #### A CBC, BMPF #### Testing performed at [address] [address] DTYPE AUTO DIFF Normal [facility] Comment on above: Performed By: #### A CBC, BMPF #### Testing performed at [address] [address] Eosinophils/100 WBC (Bld) 0.6 % Normal 0.0-11.0 [facility] Comment on above: Performed By: #### A CBC, BMPF #### Testing performed at [address] [address] Lymphocytes (Bld) [#/Vol] 1.8 10*3/uL Normal 1.2-3.4 [facility] Comment on above: Performed By: #### A CBC, BMPF #### Testing performed at [address] [address] Lymphocytes/100 WBC (Bld) 34.1 % Normal 20.0-55.0 [facility] Comment on above: Performed By: #### A CBC, BMPF #### Testing performed at [address] [address] Monocytes (Bld) [#/Vol] 0.5 10*3/uL Normal 0.0-0.7 [facility] Comment on above: Performed By: #### A CBC, BMPF #### Testing performed at [address] [address] Monocytes/100 WBC (Bld) 9.9 % Normal 0.0-10.0 [facility] Comment on above: Performed By: #### A CBC, BMPF #### Testing performed at [address] [address] Neutrophils/100 WBC (Bld) 54.8 % Normal 37.0-75.0 [facility] Comment on above: Performed By: #### A CBC, BMPF #### Testing performed at [address] [address] Erythrocyte distribution width (RBC) [Ratio] 15.9 % High 11.5-14.5 [facility] Comment on above: Performed By: #### A CBC, BMPF #### Testing performed at [address] [address] Hematocrit (Bld) [Volume fraction] 39.0 % Normal 36.0-48.0 [facility] Comment on above: Performed By: #### A CBC, BMPF #### Testing performed at [address] [address] Hemoglobin (Bld) [Mass/Vol] 13.4 g/dL Normal 12.0-16.0 [facility] Comment on above: Performed By: #### A CBC, BMPF #### Testing performed at [address] [address] MCH (RBC) [Entitic mass] 32.6 pg Normal 26.0-35.0 [facility] Comment on above: Performed By: #### A CBC, BMPF #### Testing performed at [address] [address] MCHC (RBC) [Mass/Vol] 34.3 g/dL Normal 27.0-37.0 [facility] Comment on above: Performed By: #### A CBC, BMPF #### Testing performed at [address] [address] MCV (RBC) [Entitic vol] 95.2 fL Normal 80.0-100.0 [facility] Comment on above: Performed By: #### A CBC, BMPF #### Testing performed at [address] [address] Platelet mean volume (Bld) [Entitic vol] 8.2 fL Normal 7.4-11.0 [facility] Comment on above: Performed By: #### A CBC, BMPF #### Testing performed at [address] [address] Platelets (Bld) [#/Vol] 185 10*3/uL Normal 130-400 [facility] Comment on above: Performed By: #### A CBC, BMPF #### Testing performed at [address] [address] RBC (Bld) [#/Vol] 4.10 10*6/uL Normal 4.0-5.4 [facility] Comment on above: Performed By: #### A CBC, BMPF #### Testing performed at [address] [address] WBC (Bld) [#/Vol] 5.2 10*3/uL Normal 3.6-11.0 [facility] Comment on above: Performed By: #### A CBC, BMPF #### Testing performed at [address] [address] CMP FASTINGon 06-15-2025 A:G RATIO 1.5 RATIO Normal [facility] Comment on above: Performed By: #### A CBC, BMPF #### Testing performed at [address] [address] Albumin [Mass/Vol] 4.2 g/dL Normal 3.5-5.0 [facility] Comment on above: Performed By: #### A CBC, BMPF #### Testing performed at [address] [address] ALP [Catalytic activity/Vol] 72 U/L Normal 38-126 [facility] Comment on above: Performed By: #### A CBC, BMPF #### Testing performed at [address] [address] ALT [Catalytic activity/Vol] 63 U/L High <35 [facility] Comment on above: Performed By: #### A CBC, BMPF #### Testing performed at [address] [address] AST [Catalytic activity/Vol] 129 U/L High 14-36 [facility] Comment on above: Performed By: #### A CBC, BMPF #### Testing performed at [address] [address] Bilirubin [Mass/Vol] 0.6 mg/dL Normal 0.2-1.3 [facility] Comment on above: Performed By: #### A CBC, BMPF #### Testing performed at [address] [address] Calcium [Mass/Vol] 9.3 mg/dL Normal 8.4-10.2 [facility] Comment on above: Performed By: #### A CBC, BMPF #### Testing performed at [address] [address] Chloride [Moles/Vol] 98 mmol/L Normal 98-107 [facility] Comment on above: Result Comment: Petr kuhn note: Triglyceride levels of 600mg/dL or higher may positively bias chloride results by approximately 2.1 mmol Performed By: #### A CBC, BMPF #### Testing performed at [address] [address] CO2 [Moles/Vol] 30 mmol/L Normal 22-30 [facility] Comment on above: Performed By: #### A CBC, BMPF #### Testing performed at [address] [address] Creatinine [Mass/Vol] 0.70 mg/dL Normal 0.70-1.20 [facility] Comment on above: Performed By: #### A CBC, BMPF #### Testing performed at [address] [address] GFR Information Average GFR for 60-6 9 years old = 85. Normal [facility] Comment on above: Result Comment: Residence Supervisor chanda Kidney disease, GFR = <60. Kidney failure, GFR = <15. The GFR estimate is not adjusted for extreme body surface area or acute process, nor has it been validated for women or ethnic groups other than and . MDRD Equation Performed By: #### A CBC, BMPF #### Testing performed at [address] [address] GFR/1.73 sq M.predicted MDRD (S/P/Bld) [Vol rate/Area] 89 mL/min/{1.73_m2} Normal [facility] Comment on above: Performed By: #### A CBC, BMPF #### Testing performed at [address] [address] Glucose [Mass/Vol] 112 mg/dL High 70-100 [facility] Comment on above: Result Comment: NORMAL <100 mg/dL PREDIABETES 101-126 mg/dL DIABETES 126 mg/dL or higher Performed By: #### A CBC, BMPF #### Testing performed at [address] [address] Potassium [Moles/Vol] 3.6 mmol/L Normal 3.5-5.1 [facility] Comment on above: Performed By: #### A CBC, BMPF #### Testing performed at [address] [address] Protein [Mass/Vol] 7.0 g/dL Normal 6.3-8.2 [facility] Comment on above: Performed By: #### A CBC, BMPF #### Testing performed at [address] [address] Sodium [Moles/Vol] 135 mmol/L Low 137-145 [facility] Comment on above: Performed By: #### A CBC, BMPF #### Testing performed at [address] [address] Urea nitrogen [Mass/Vol] 11 mg/dL Normal 7-20 [facility] Comment on above: Performed By: #### A CBC, BMPF #### Testing performed at [address] [address] FERRITINon 06-15-2025 Ferritin [Mass/Vol] 27 ng/mL Normal 11.1-264 [facility] Comment on above: Result Comment: EUGENIE ENOPAUSAL FEMALES 6.9-282.5 POSTMENOPAUSAL FEMALES 14.0-233.1 Performed By: #### A CBC, BMPF #### Testing performed at [address] [address] FOLATEon 06-15-2025 FOLATE >20.0 High 2.56-20.0 [facility] Comment on above: Performed By: #### P CR #### Testing performed at [address] [address] FREE T4on 06-15-2025 Free T4 [Mass/Vol] 1.12 ng/dL Normal 0.78-2.19 [facility] Comment on above: Performed By: #### T SH2, FEPRO, T42, VITD #### Testing performed at [address] [address] HEMOGLOBIN A1Con 06-15-2025 Glucose [Mass/Vol] 114 mg/dL Normal [facility] Comment on above: Performed By: #### P CR #### Testing performed at [address] [address] HbA1c (Bld) [Mass fraction] 5.6 % Normal 0-6 [facility] Comment on above: Result Comment: NORMAL <5.7% PREDIABETES 5.7-6.4% DIABETES 6.5% OR HIGHER Performed By: #### P CR #### Testing performed at [address] [address] IRON PROFILEon 06-15-2025 IRON BINDING 539 UG/DL High 250-450 [facility] Comment on above: Performed By: #### T SH2, FEPRO, T42, VITD #### Testing performed at [address] [address] TRANSFERRIN SATURATION,CALCULATE D 8 % Normal [facility] Comment on above: Performed By: #### T SH2, FEPRO, T42, VITD #### Testing performed at [address] [address] Iron [Mass/Vol] 41 ug/dL Normal 37-170 [facility] Comment on above: Performed By: #### T SH2, FEPRO, T42, VITD #### Testing performed at [address] [address] LIPID PROFILEon 06-15-2025 Cholesterol [Mass/Vol] 268 mg/dL High 107-217 [facility] Comment on above: Performed By: #### A CBC, BMPF #### Testing performed at [address] [address] Cholesterol in HDL [Mass/Vol] 84 mg/dL High 33-75 [facility] Comment on above: Performed By: #### A CBC, BMPF #### Testing performed at [address] [address] Cholesterol in LDL [Mass/Vol] 129 mg/dL High <100 [facility] Comment on above: Result Comment: Friyudith dwald formula Performed By: #### A CBC, BMPF #### Testing performed at [address] [address] Cholesterol in VLDL [Mass/Vol] 55 mg/dL High 5-25 [facility] Comment on above: Performed By: #### A CBC, BMPF #### Testing performed at [address] [address] Cholesterol.total/Ch olesterol in HDL [Mass ratio] 3.19 {ratio} Normal [facility] Comment on above: Result Comment: RISK TOTAL/HDL RATIO MEN WOMEN 1/2 AVERAGE 3.43 3.27 AVERAGE 4.97 4.44 2X AVERAGE 9.55 7.05 3X AVERAGE 23.99 11.04 Performed By: #### A CBC, BMPF #### Testing performed at [address] [address] Triglyceride [Mass/Vol] 277 mg/dL High 0-150 [facility] Comment on above: Performed By: #### A CBC, BMPF #### Testing performed at [address] [address] MAGNESIUMon 06-15-2025 Magnesium [Mass/Vol] 1.2 mg/dL Low 1.6-2.3 [facility] Comment on above: Performed By: #### A CBC, BMPF #### Testing performed at [address] [address] MALB/CREAT RATIO,URINEon MALB/CREAT RATIO,URINE 13.2 mg MALB/g CREAT Normal 1.3-30.0 [facility] Comment on above: Performed By: #### T SH2, FEPRO, T42, VITD #### Testing performed at [address] [address] MICROALBUMIN,RANDOM URINE 8.9 mg/L Normal 0.0-16.7 [facility] Comment on above: Performed By: #### T SH2, FEPRO, T42, VITD #### Testing performed at [address] [address] URINE CREATININE RANDOM 67.2 MG/DL Normal [facility] Comment on above: Result Comment: NO N ORMAL VALUES ESTABLISHED FOR RANDOM SPECIMENS Performed By: #### T SH2, FEPRO, T42, VITD #### Testing performed at [address] [place] [address] PROTEIN CREATININE RATIOon 0 06-15-2025 PROTEIN CREATININE RATIO 0.2 Normal [facility] Comment on above: Result Comment: REFERENCE RANGES <0.2 NORMAL 0.2-3.5 NON-NEPHROTIC >3.5 NEPHROTIC Performed By: #### P CR #### Testing performed at [address] [address] URINE CREATININE RANDOM 66.4 MG/DL Normal [facility] Comment on above: Result Comment: NO N ORMAL VALUES ESTABLISHED FOR RANDOM SPECIMENS Performed By: #### P CR #### Testing performed at [address] [address] URINE TP RANDOM 12 MG/DL Normal 0-12 [facility] Comment on above: Performed By: #### P CR #### Testing performed at [address] [address] PTH,INTACTon 06-15-2025 PTH,INTACT 24.9 pg/mL Normal 14.5-75.2 [facility] Comment on above: Performed By: #### A CBC, BMPF #### Testing performed at [address] [address] TSHon 06-15-2025 TSH 0.810 uIU/ML Normal 0.465-4.680 [facility] Comment on above: Performed By: #### T SH2, FEPRO, T42, VITD #### Testing performed at [address] [place] [address] URIC ACIDon 06-15-2025 Urate [Mass/Vol] 5.8 mg/dL Normal 2.4-6.0 [facility] Comment on above: Performed By: #### A CBC, BMPF #### Testing performed at [address] [place] [address] VITAMIN B12on 06-15-2025 Cobalamin (Vitamin B12) [Mass/Vol] 896 pg/mL Normal 239-931 [facility] Comment on above: Performed By: #### A CBC, BMPF #### Testing performed at [facility] [address] [place] [address] CT SPINE LUMBAR WITHOUT CONT RASTon 06-11-2025 [...] degenerative changes without acute osseous abnormality. Normal [facility] MRI SPINE LUMBAR WITHOUT CON TRASTon 06-11-2025 [...] from bilateral SI fusion, partially imaged Normal [facility] LOWER EXTREMITY INJECTION: l eft plantar fasciaon [...] fashion. The patient was prepped with chlorhexidine. [facility] Radiology Study observation (narrative) [facility] FUNDUS PHOTOS OU (BOTH EYES) on 05-15-2025 [facility] Radiology Study observation (narrative) [facility] YAG CAPSULOTOMY OD (RIGHT EY E)on 05-15-2025 [facility] WOUND CULTUREon 05-10-2025 WOUND CULTURE SPECIMEN DESCRIPTION LEFT FOOT SPECIAL REQUESTS OPEN WOUND OF 4TH TOE GRAM SMEAR NO * Result Note: WBC'S SEEN * * Result Note: RARE * * Result Note: GRAM POSITIVE COCCI * COLONY COUNT HEAVY GROWTH CULTURE NORMAL SKIN QUINTON PRESENT * Result Note: Testing performed at [place] [address] * REPORT STATUS 05/12/2025 * Result Note: FINAL * Normal [facility] Comment on above: Performed By: #### W DC #### Testing performed at [address] [address] XR FOOT LEFT 3+ VIEWSon 04-23 XR [...] Mild interphalangeal osteoarthritis. 2. Calcaneal spurring. Normal [facility] XR Foot - left 3 Viewson [...] 1. Mild interphalangeal osteoarthritis. 2. Calcaneal spurring. [facility] Radiology Study observation (narrative) [facility] XR Foot - left 3 ViewsOrdere d By: Chely Paz on 05-10-2025 [facility] XR Lumbar spine Views W [...] of the SI joints Calcified atherosclerotic disease [facility] XR Lumbar spine Views W righ t bending and W left bendingOrdered By: Sedrick Kwon on 05-07-2025 [employer] Work Phone: XR SPINE LUMBAR W/ [...] the SI joints Calcified atherosclerotic disease Normal [facility] XR Lumbar spine Views W righ t bending and W left bendingon 05-06-2025 Radiology Study observation (narrative) [facility] ECG 12-LEADon 04-05-2025 ECG 12-LEAD Ventricular Rate 77 Atrial Rate 77 P-R Interval 196 QRS Duration 92 Q-T Interval 406 QTC Calculation(Bazett) 459 P Southmayd 68 R [place]mayd 44 T [place]mayd 60 QRS Count 13 Q Onset 226 [...] Najera ([id number]) on 04/05/2025 11:32:58 AM Normal [facility] Ethanolon 04-05-2025 Ethanol [Mass/Vol] 71 mg/dL High NINF - 10 mg/dL [facility] Comment on above: For medical use only . Ethanol [Mass/Vol] 71 mg/dL High <=10 [facility] Comment on above: Result Comment: For medical use only. Performed By: #### 5 643-2 #### MULLEN LAWRENCE ([id number]) [facility] ([facility]) [address] [place] [address] Ethanol [Mass/Vol]on 025 Interpretation and review of laboratory results Abnormal [facility] Tropinin I.cardiac panel Hig h sensitivity methodon 04-05-2025 Interpretation and review of laboratory results Abnormal [facility] Less than 99th percentile of normal range [...] performed using a different testing methodology at [facility] than at [facility]. Direct result comparisons should only be made within the same method. [facility] Troponin I, High Sensitivity , Initialon 04-05-2025 Tropinin I.cardiac panel High sensitivity method 19 ng/L High 0 - 13 ng/L [facility] Troponin I.cardiac panelon 0 04-05-2025 Tropinin I.cardiac panel High sensitivity method 20 ng/L High 0-13 [facility] Comment on above: Order Comment: Less than [...] performed using a different testing methodology at [facility] than at [facility]. Direct result comparisons should only be made within the same method. Performed By: #### 8 9577-1 #### MULLEN LAWRENEC ([id number]) [facility] ([facility]) [address] [place] [address] Tropinin I.cardiac panel High sensitivity method 19 ng/L High 0-13 [facility] Comment on above: Order Comment: Less than [...] performed using a different testing methodology at [facility] than at other [facility]. Direct result comparisons should only be made within the same method. Performed By: #### 8 9577-1 #### PAZ BRAVO ([id number]) [facility] ([facility]) [facility] [place] [address] Acetaminophenon 04-04-2025 Acetaminophen [Mass/Vol] ug/mL Normal 10.0-30.0 [facility] Comment on above: Performed By: #### 3 298-7 #### PAZ BRAVO ([id number]) [facility] ([facility]) [facility] [place] [address] Acetaminophen levelon 2024 Acetaminophen [Mass/Vol] ug/mL 10.0 - 30.0 ug/mL [facility] CBC W Auto Differential pane l (Bld)on 04-04-2025 Basophils (Bld) [#/Vol] 0.08 10*3/uL [facility] Basophils/100 WBC (Bld) 1.2 % 0.0 - 2.0 % [facility] Eosinophils (Bld) [#/Vol] 0.05 10*3/uL [facility] Eosinophils/100 WBC (Bld) 0.7 % 0.0 - 6.0 % [facility] Erythrocyte distribution width (RBC) [Ratio] 17.4 % High 11.5 - 14.5 % [facility] Hematocrit (Bld) [Volume fraction] 42.2 % 36.0 - 46.0 % [facility] Hemoglobin (Bld) [Mass/Vol] 14.2 g/dL 12.0 - 16.0 g/dL [facility] Immature granulocytes (Bld) [#/Vol] 0.01 10*3/uL [facility] Immature granulocytes/100 WBC (Bld) 0.1 % 0.0 - 0.9 % [facility] Comment on above: Immature Granulocyte Count (IG) includes promyelocytes, myelocytes and metamyelocytes but does not include bands. Percent differential counts (%) should be interpreted in the context of the absolute cell counts (cells/UL). Interpretation and review of laboratory results Abnormal [facility] Lymphocytes (Bld) [#/Vol] 2.88 10*3/uL [facility] Lymphocytes/100 WBC (Bld) 42 % 13.0 - 44.0 % [facility] MCH (RBC) [Entitic mass] 30.8 pg 26.0 - 34.0 pg [facility] MCHC (RBC) [Mass/Vol] 33.6 g/dL 32.0 - 36.0 g/dL [facility] MCV (RBC) [Entitic vol] 92 fL 80 - 100 fL [facility] Monocytes (Bld) [#/Vol] 0.36 10*3/uL [facility] Monocytes/100 WBC (Bld) 5.2 % 2.0 - 10.0 % [facility] Neutrophils (Bld) [#/Vol] 3.48 10*3/uL [facility] Comment on above: Percent differential counts (%) should be interpreted in the context of the absolute cell counts (cells/uL). Neutrophils/100 WBC (Bld) 50.8 % 40.0 - 80.0 % [facility] Nucleated RBC/100 WBC (Bld) [Ratio] 0 % [facility] Platelets (Bld) [#/Vol] 297 10*3/uL [facility] RBC (Bld) [#/Vol] 4.61 10*6/uL [facility] WBC (Bld) [#/Vol] 6.9 10*3/uL [facility] Basophils (Bld) [#/Vol] 0.08 x10*3/uL Normal 0.00-0.10 [facility] Comment on above: Performed By: #### 5 7021-8 #### PAZ BRAVO ([id number]) [facility] ([facility]) [address] [place] [address] Basophils/100 WBC (Bld) 1.2 % Normal 0.0-2.0 [facility] Comment on above: Performed By: #### 5 7021-8 #### PAZ BRAVO ([id number]) [facility] ([facility]) [address] [place] [place] [address] Eosinophils (Bld) [#/Vol] 0.05 x10*3/uL Normal 0.00-0.70 [facility] Comment on above: Performed By: #### 5 7021-8 #### PAZ BRAVO ([id number]) [facility] ([facility]) [address] [place] [place] [address] Eosinophils/100 WBC (Bld) 0.7 % Normal 0.0-6.0 [facility] Comment on above: Performed By: #### 5 7021-8 #### PAZ BRAVO ([id number]) [facility] ([facility]) [address] [place] [address] Erythrocyte distribution width (RBC) [Ratio] 17.4 % High 11.5-14.5 [facility] Comment on above: Performed By: #### 5 7021-8 #### PAZ BRAVO ([id number]) [facility] ([facility]) [address] [place] [place] [address] Hematocrit (Bld) [Volume fraction] 42.2 % Normal 36.0-46.0 [facility] Comment on above: Performed By: #### 5 7021-8 #### PAZ BRAVO ([id number]) [facility] ([facility]) [address] [place] [address] Hemoglobin (Bld) [Mass/Vol] 14.2 g/dL Normal 12.0-16.0 [facility] Comment on above: Performed By: #### 5 7021-8 #### PAZ BRAVO ([id number]) [facility] ([facility]) [address] [place] [address] Immature granulocytes (Bld) [#/Vol] 0.01 x10*3/uL Normal 0.00-0.70 [facility] Comment on above: Performed By: #### 5 7021-8 #### PAZ BRAVO ([id number]) [facility] ([facility]) [address] [place] [place] [address] Immature granulocytes/100 WBC (Bld) 0.1 % Normal 0.0-0.9 [facility] Comment on above: Result Comment: Corrine ture Granulocyte Count (IG) includes promyelocytes, myelocytes and metamyelocytes but does not include bands. Percent differential counts (%) should be interpreted in the context of the absolute cell counts (cells/UL). Performed By: #### 5 7021-8 #### PAZ BRAVO ([id number]) [facility] ([facility]) [address] [place] [address] Lymphocytes (Bld) [#/Vol] 2.88 x10*3/uL Normal 1.20-4.80 [facility] Comment on above: Performed By: #### 5 7021-8 #### PAZ BRAVO ([id number]) [facility] ([facility]) [address] [place] [place] [address] Lymphocytes/100 WBC (Bld) 42.0 % Normal 13.0-44.0 [facility] Comment on above: Performed By: #### 5 7021-8 #### PAZ BRAVO ([id number]) [facility] ([facility]) [address] [place] [place] [address] MCH (RBC) [Entitic mass] 30.8 pg Normal 26.0-34.0 [facility] Comment on above: Performed By: #### 5 7021-8 #### PAZ BRAOV ([id number]) [facility] ([facility]) [address] [place] [address] MCHC (RBC) [Mass/Vol] 33.6 g/dL Normal 32.0-36.0 [facility] Comment on above: Performed By: #### 5 7021-8 #### PAZ BRAVO ([id number]) [facility] ([facility]) [address] [place] [address] MCV (RBC) [Entitic vol] 92 fL Normal 80-100 [facility] Comment on above: Performed By: #### 5 7021-8 #### PAZ BRAVO ([id number]) [facility] ([facility]) [address] [place] [address] Monocytes (Bld) [#/Vol] 0.36 x10*3/uL Normal 0.10-1.00 [facility] Comment on above: Performed By: #### 5 7021-8 #### PAZ BRAVO ([id number]) [facility] ([facility]) [address] [place] [place] [address]26 Monocytes/100 WBC (Bld) 5.2 % Normal 2.0-10.0 [facility] Comment on above: Performed By: #### 5 7021-8 #### PAZ BRAVO ([id number]) [facility] ([facility]) [address] [place] [address] Neutrophils (Bld) [#/Vol] 3.48 x10*3/uL Normal 1.20-7.70 [facility] Comment on above: Result Comment: Perc ent differential counts (%) should be interpreted in the context of the absolute cell counts (cells/uL). Performed By: #### 5 7021-8 #### PAZ BRAVO ([id number]) [facility] ([facility]) [address] [place] [address] 99990 Neutrophils/100 WBC (Bld) 50.8 % Normal 40.0-80.0 [facility] Comment on above: Performed By: #### 5 7021-8 #### PAZ BRAVO ([id number]) [facility] ([facility]) [address] [place] [address] 6[address] Nucleated RBC/100 WBC (Bld) [Ratio] 0.0 /100 WBCs Normal 0.0-0.0 [facility] Comment on above: Performed By: #### 5 7021-8 #### PAZ BRAVO ([id number]) [facility] ([facility]) [address] [place] [address] 08123 Platelets (Bld) [#/Vol] 297 x10*3/uL Normal 150-450 [facility] Comment on above: Performed By: #### 5 7021-8 #### PAZ BRAVO ([id number]) [facility] ([facility]) [address] [place] [address] 12369 RBC (Bld) [#/Vol] 4.61 x10*6/uL Normal 4.00-5.20 [facility] Comment on above: Performed By: #### 5 7021-8 #### PAZ BRAVO ([id number]) [facility] ([facility]) [address] [place] [address] 73367 WBC (Bld) [#/Vol] 6.9 x10*3/uL Normal 4.4-11.3 [facility] Comment on above: Performed By: #### 5 7021-8 #### PAZ BRAVO ([id number]) [facility] ([facility]) [address] [place] [address] 41447 Comprehensive metabolic 2000 panelon 04-04-2025 Albumin BCP dye [Mass/Vol] 4.5 g/dL 3.4 - 5.0 g/dL [facility] ALP [Catalytic activity/Vol] 72 U/L 33 - 136 U/L [facility] ALT With P-5'-P [Catalytic activity/Vol] 77 U/L High 7 - 45 U/L [facility] Comment on above: Patients treated wit h Sulfasalazine may generate falsely decreased results for ALT. Anion gap [Moles/Vol] 18 mmol/L 10 - 20 mmol/L [facility] AST With P-5'-P [Catalytic activity/Vol] 111 U/L High 9 - 39 U/L [facility] Bilirubin [Mass/Vol] 0.4 mg/dL 0.0 - 1 .2 mg/dL [facility] Calcium [Mass/Vol] 9.4 mg/dL 8.6 - 10. 3 mg/dL [facility] Chloride [Moles/Vol] 97 mmol/L Low 98 - 10 7 mmol/L [facility] CO2 [Moles/Vol] 25 mmol/L 21 - 32 mmol/L [facility] Creatinine [Mass/Vol] 0.65 mg/dL 0.50 - 1.05 mg/dL [facility] eGFR - PINF [facility] Comment on above: Calculations of nay mated GFR are performed using the 2020 CKD-EPI Study Refit equation without the race variable for the IDMS-Traceable creatinine methods. https://jasn.asnjournals.org/content/early//ASN.5656640 988 Glucose [Mass/Vol] 140 mg/dL High 74 - 99 mg/dL [facility] Potassium [Moles/Vol] 3.6 mmol/L 3.5 - 5.3 mmol/L [facility] Protein [Mass/Vol] 7.3 g/dL 6.4 - 8.2 g/dL [facility] Sodium [Moles/Vol] 136 mmol/L 136 - 145 mmol/L [facility] Urea nitrogen [Mass/Vol] 11 mg/dL 6 - 23 mg/dL [facility] Albumin BCP dye [Mass/Vol] 4.5 g/dL Normal 3.4-5.0 [facility] Comment on above: Performed By: #### 2 4323-8 #### PAZ BRAVO ([id number]) [facility] ([facility]) [address] [place] [address] 23741 ALP [Catalytic activity/Vol] 72 U/L Normal 33-136 [facility] Comment on above: Performed By: #### 2 4323-8 #### PAZ BRAVO ([id number]) [facility] ([facility]) [facility] [place] [address] ALT With P-5'-P [Catalytic activity/Vol] 77 U/L High 7-45 [facility] Comment on above: Result Comment: Jessenia ents treated with Sulfasalazine may generate falsely decreased results for ALT. Performed By: #### 2 4323-8 #### PAZ BRAVO ([id number]) [facility] ([facility]) [facility] [place] [address] Anion gap [Moles/Vol] 18 mmol/L Normal 10-20 [facility] Comment on above: Performed By: #### 2 4323-8 #### PAZ BRAVO ([id number]) [facility] ([facility]) [address] [place] [address] 14556 AST With P-5'-P [Catalytic activity/Vol] 111 U/L High 9-39 [facility] Comment on above: Performed By: #### 2 4323-8 #### PAZ BRAVO ([id number]) [facility] ([facility]) [address] [place] [address] 30946 Bilirubin [Mass/Vol] 0.4 mg/dL Normal 0.0-1.2 [facility] Comment on above: Performed By: #### 2 4323-8 #### PAZ BRAVO ([id number]) [facility] ([facility]) [address] [place] [address] 47403 Calcium [Mass/Vol] 9.4 mg/dL Normal 8.6-10.3 [facility] Comment on above: Performed By: #### 2 4323-8 #### PAZ BRAVO ([id number]) [facility] ([facility]) [address] [place] [address] 03593 Chloride [Moles/Vol] 97 mmol/L Low 98-107 [facility] Comment on above: Performed By: #### 2 4323-8 #### PAZ BRAVO ([id number]) [facility] ([facility]) [address] [place] [address] 14305 CO2 [Moles/Vol] 25 mmol/L Normal 21-32 [facility] Comment on above: Performed By: #### 2 4323-8 #### PAZ BRAVO ([id number]) [facility] ([facility]) [address] [place] [address] 21335 Creatinine [Mass/Vol] 0.65 mg/dL Normal 0.50-1.05 [facility] Comment on above: Performed By: #### 2 4323-8 #### PAZ BRAVO ([id number]) [facility] ([facility]) [address] [place] [address] 16091 GFR/1.73 sq M.predicted MDRD (S/P/Bld) [Vol rate/Area] mL/min/{1.73_m2} Normal >60 [facility] Comment on above: Result Comment: Calc ulations of estimated GFR are performed using the 2020 CKD-EPI Study Refit equation without the race variable for the IDMS-Traceable creatinine methods. https://jasn.asnjournals.org/content/early//ASN.6452626 988 Performed By: #### 2 4323-8 #### PAZ BRAVO ([id number]) [facility] ([facility]) [address] [place] [address] 93165 Glucose [Mass/Vol] 140 mg/dL High 74-99 [facility] Comment on above: Performed By: #### 2 4323-8 #### PAZ BRAVO ([id number]) [facility] ([facility]) [address] [place] [address] 26215 Potassium [Moles/Vol] 3.6 mmol/L Normal 3.5-5.3 [facility] Comment on above: Performed By: #### 2 4323-8 #### PAZ BRAVO ([id number]) [facility] ([facility]) [address] [place] [address] 03650 Protein [Mass/Vol] 7.3 g/dL Normal 6.4-8.2 [facility] Comment on above: Performed By: #### 2 4323-8 #### PAZ BRAVO ([id number]) [facility] ([facility]) [address] [place] [address] 93430 Sodium [Moles/Vol] 136 mmol/L Normal 136-145 [facility] Comment on above: Performed By: #### 2 4323-8 #### PAZ BRAVO ([id number]) [facility] ([facility]) [facility] [place] [phone] Urea nitrogen [Mass/Vol] 11 mg/dL Normal 6- [facility] Comment on above: Performed By: #### 2 4323-8 #### PAZ BRAVO ([id number]) [facility] ([facility]) [facility] [place] [address] DRUG SCREEN,URINEon 04-04-20 25 Amphetamines Screen Ql (U) Negative Normal Presumptive Negative [facility] Comment on above: Order Comment: Drug screen results are presumptive and should not be used to assess compliance with prescribed medication. Contact the performing [facility] laboratory to add-on definitive confirmatory testing if [...] By: #### D RUG3 #### PAZ BRAVO ([id number]) [facility] ([facility]) [facility] [place] [phone] Barbiturates Screen Ql (U) Negative Normal Presumptive Negative [facility] Comment on above: Order Comment: Drug screen results are presumptive and should not be used to assess compliance with prescribed medication. Contact the performing [facility] laboratory to add-on definitive confirmatory testing if [...] By: #### D RUG3 #### PAZ BRAVO ([id number]) [facility] ([facility]) [address] [place] [address] Benzodiazepines Ql (U) Positive Abnormal Presumptive Negative [facility] Comment on above: Order Comment: Drug screen results are presumptive and should not be used to assess compliance with prescribed medication. Contact the performing [facility] laboratory to add-on definitive confirmatory testing if [...] By: #### D RUG3 #### PAZ BRAVO ([id number]) [facility] ([facility]) [facility] [place] [phone] Benzoylecgonine Screen Ql (U) Negative Normal Presumptive Negative [facility] Comment on above: Order Comment: Drug screen results are presumptive and should not be used to assess compliance with prescribed medication. Contact the performing [facility] laboratory to add-on definitive confirmatory testing if [...] By: #### D RUG3 #### PAZ BRAVO ([id number]) [facility] ([facility]) [address] [place] [address] Cannabinoids Screen Ql (U) Positive Abnormal Presumptive Negative [facility] Comment on above: Order Comment: Drug screen results are presumptive and should not be used to assess compliance with prescribed medication. Contact the performing [facility] laboratory to add-on definitive confirmatory testing if [...] By: #### D RUG3 #### PAZ BRAVO ([id number]) [facility] ([facility]) [address] [place] [address] fentaNYL+Norfentanyl Screen Ql (U) Negative Normal Presumptive Negative [facility] Comment on above: Order Comment: Drug screen results are presumptive and should not be used to assess compliance with prescribed medication. Contact the performing [facility] laboratory to add-on definitive confirmatory testing if [...] By: #### D RUG3 #### PAZ BRAVO ([id number]) [facility] ([facility]) [facility] [place] [address] Methadone Screen Ql (U) Negative Normal Presumptive Negative [facility] Comment on above: Order Comment: Drug screen results are presumptive and should not be used to assess compliance with prescribed medication. Contact the performing [facility] laboratory to add-on definitive confirmatory testing if [...] CUTO FF LEVEL: 150 NG/ML The metabolite S-nbafo-euvveunudulcxq (LAAM) is not detected by this method in concentrations that would be found in the urine of patients on LAAM therapy. Performed By: #### D RUG3 #### PAZ BRAVO ([id number]) [facility] ([facility]) [address] [place] [address] Opiates Screen Ql (U) Negative Normal Presumptive Negative [facility] Comment on above: Order Comment: Drug screen results are presumptive and should not be used to assess compliance with prescribed medication. Contact the performing [facility] laboratory to add-on definitive confirmatory testing if [...] By: #### Jone RUG3 #### PAZ BRAVO ([id number]) [facility] ([facility]) [facility] [place] [address] oxyCODONE+oxyMORphon e Screen Ql (U) Negative Normal Presumptive Negative [facility] Comment on above: Order Comment: Drug screen results are presumptive and should not be used to assess compliance with prescribed medication. Contact the performing [facility] laboratory to add-on definitive confirmatory testing if [...] By: #### Jone DICKEY3 #### PAZ BRAVO ([id number]) [facility] ([facility]) [address] [place], [place] [address] Phencyclidine Ql (U) Negative Normal Presump tive Negative [facility] Comment on above: Order Comment: Drug screen results are presumptive and should not be used to assess compliance with prescribed medication. Contact the performing [facility] laboratory to add-on definitive confirmatory testing if [...] By: #### D RUG3 #### MULLEN LAWRENCE ([id number]) [facility] ([facility]) [address] [place] [address] Drug Screen, Urineon 025 Amphetamines Screen Ql (U) Negative Presumptive Negative [facility] Comment on above: CUTOFF LEVEL: 500 NG /ML Cross-reactivity has been reported with high concentrations of the following drugs: buproprion, chloroquine, chlorpromazine, ephedrine, mephentermine, fenfluramine, phentermine, phenylpropanolamine, pseudoephedrine, and propranolol. Barbiturates Screen Ql (U) Negative Presumptive Negative [facility] Comment on above: CUTOFF LEVEL: 200 NG /ML Benzodiazepines Ql (U) Positive Abnormal Presumptive Negative [facility] Comment on above: CUTOFF LEVEL: 200 NG /ML Benzoylecgonine Screen Ql (U) Negative Presumptive Negative [facility] Comment on above: CUTOFF LEVEL: 150 NG /ML Cannabinoids Screen Ql (U) Positive Abnormal Presumptive Negative [facility] Comment on above: CUTOFF LEVEL: 50 NG/ ML fentaNYL+Norfentanyl Screen Ql (U) Negative Presumptive Negative [facility] Comment on above: CUTOFF LEVEL: 5 NG/M L Interpretation and review of laboratory results Abnormal [facility] Methadone Screen Ql (U) Negative Presumptive Negative [facility] Comment on above: CUTOFF LEVEL: 150 NG /ML The metabolite C-vxxop-vaugctdmkvdlrx (LAAM) is not detected by this method in concentrations that would be found in the urine of patients on LAAM therapy. Opiates Screen Ql (U) Negative Presumptive Negative [facility] Comment on above: CUTOFF LEVEL: 300 NG /ML The opiate screen does not detect fentanyl, meperidine, or tramadol. Oxycodone is not consistently detected (refer to Oxycodone Screen, Urine result). oxyCODONE+oxyMORphon e Screen Ql (U) Negative Presumptive Negative [facility] Comment on above: CUTOFF LEVEL: 100 NG /ML This test will accurately detect both oxycodone and oxymorphone. Phencyclidine Ql (U) Negative Presump tive Negative [facility] Comment on above: CUTOFF LEVEL: 25 NG/ ML Cross-reactivity has been reported with dextromethorphan. Drug screen results are presumptive and should not be used to assess compliance with prescribed medication. Contact the performing [facility] laboratory to add-on definitive confirmatory testing if [...] be directed to the laboratory medical directors. [facility] Ethanolon 04-04-2025 Ethanol [Mass/Vol] 149 mg/dL High NINF - 10 mg/dL [facility] Comment on above: For medical use only . Ethanol [Mass/Vol] 149 mg/dL High <=10 [facility] Comment on above: Result Comment: For medical use only. Performed By: #### 5 643-2 #### PAZ BRAVO ([id number]) [facility] ([facility]) [address] [place] [address] No Panel Informationon 04-04 Interpretation and review of laboratory results Abnormal [facility] Interpretation and review of laboratory results Normal [facility] Salicylate levelon Salicylates [Mass/Vol] mg/dL 4 - 20 mg/dL [facility] Salicylateson 04-04-2025 Salicylates [Mass/Vol] mg/dL Normal 4-20 [facility] Comment on above: Performed By: #### 4 024-6 #### PAZ BRAVO ([id number]) [facility] ([facility]) [address] [place] [address] MAMMO SCREENING WITH ALEXANDER BI LATERALon 03-08-2025 MAMMO SCREENING WITH ALEXANDER BILATERAL EXAM: MAMMO SCREENING WITH ALEXANDER BILATERAL [...] is recommended. BI-RADS Category 1. Negative. Normal [facility] BONE DENSITY AXIAL (HIP, PEL VIS, SPINE)on 03-06-2025 BONE DENSITY AXIAL (HIP, PELVIS, SPINE) EXAMINATION: BONE DENSITY AXIAL (HIP, PELVIS, SPINE), 03/06/2025 2:22 PM EDT HISTORY: Post menopausal female, screening for osteoporosis. COMPARISON: 03/01/2023. TECHNIQUE: Dual-energy X-ray absorptiometry (DEXA) bone density study performed utilizing [employer] machine. FINDINGS: Lumbar spine: L1-L4 region bone [...] of Rheumatoid arthritis, glucocorticoid use, etc. Normal [facility] DXA Skeletal system.axial Vi ews for bone [...] absorptiometry (DEXA) bone density study performed utilizing [email or web address] machine. FINDINGS: Lumbar spine: L1-L4 region bone [...] absorptiometry (DEXA) bone density study performed utilizing [email or web address] machine. FINDINGS: Lumbar spine: L1-L4 region bone [...] history of Rheumatoid arthritis, glucocorticoid use, etc. [facility] Study observation (narrative) [facility] DXA Skeletal system.axial Vi ews for bone densityOrdered By: Chely Paz on 03-06-2025 [facility] US.doppler Carotid arteries - bilateralon 01-08-2025 APPROVED [...] <50< 180< 50< 2.0< 40 50 - 32334 - 230> 502.0 - 4.040 - 100 [...] plaque was visualized in bilateral Carotid Arteries. [facility] Radiology Study observation (narrative) [facility] US.doppler Carotid arteries - bilateralOrdered By: Dawn Bedolla on 01-08-2025 [facility] Work Phone: 25 0H VITAMIN D LEVELon 12-22 25 0H VITAMIN D LEVEL 35.9 NG/ML Normal [facility] Comment on above: Result Comment: DEFICIENT <20 NG/ML INSUFFICIENT 20-<30 NG/ML SUFFICIENT 30-100 NG/ML POTENTIAL TOXICITY >100 NG/ML Performed By: #### T SH2, FEPRO, T42, VITD #### Testing performed at [address] [address] CBCon 12-31-2024 ABSOLUTE BAS 0.1 10*3/uL Normal 0.0-0.2 [facility] Comment on above: Performed By: #### M G #### Testing performed at [address] [address] ABSOLUTE EOS 0.0 10*3/uL Normal 0.0-0.7 [facility] Comment on above: Performed By: #### M G #### Testing performed at [address] [address] ABSOLUTE NEUTROPHIL COUNT 2.4 10*3/uL Normal 1.4-6.5 [facility] Comment on above: Performed By: #### M G #### Testing performed at [address] [address] Basophils/100 WBC (Bld) 1.3 % Normal 0.0-2.0 [facility] Comment on above: Performed By: #### M G #### Testing performed at [address] [address] DTYPE AUTO DIFF Normal [facility] Comment on above: Performed By: #### M G #### Testing performed at [address] [address] Eosinophils/100 WBC (Bld) 0.8 % Normal 0.0-11.0 [facility] Comment on above: Performed By: #### M G #### Testing performed at [address] [address] Lymphocytes (Bld) [#/Vol] 1.8 10*3/uL Normal 1.2-3.4 [facility] Comment on above: Performed By: #### M G #### Testing performed at [address] [place] [address] Lymphocytes/100 WBC (Bld) 37.1 % Normal 20.0-55.0 [facility] Comment on above: Performed By: #### M G #### Testing performed at [address] [address] Monocytes (Bld) [#/Vol] 0.5 10*3/uL Normal 0.0-0.7 [facility] Comment on above: Performed By: #### M G #### Testing performed at [address] [address] Monocytes/100 WBC (Bld) 10.5 % High 0.0-10.0 [facility] Comment on above: Performed By: #### M G #### Testing performed at [address] [address] Neutrophils/100 WBC (Bld) 50.3 % Normal 37.0-75.0 [facility] Comment on above: Performed By: #### M G #### Testing performed at [address] [place] [address] Erythrocyte distribution width (RBC) [Ratio] 14.1 % Normal 11.5-14.5 [facility] Comment on above: Performed By: #### M G #### Testing performed at [address] [address] Hematocrit (Bld) [Volume fraction] 36.3 % Normal 36.0-48.0 [facility] Comment on above: Performed By: #### M G #### Testing performed at [address] [address] Hemoglobin (Bld) [Mass/Vol] 12.0 g/dL Normal 12.0-16.0 [facility] Comment on above: Performed By: #### M G #### Testing performed at [address] [address] MCH (RBC) [Entitic mass] 30.5 pg Normal 26.0-35.0 [facility] Comment on above: Performed By: #### M G #### Testing performed at [address] [address] MCHC (RBC) [Mass/Vol] 33.0 g/dL Normal 27.0-37.0 [facility] Comment on above: Performed By: #### M G #### Testing performed at [address] [address] MCV (RBC) [Entitic vol] 92.5 fL Normal 80.0-100.0 [facility] Comment on above: Performed By: #### M G #### Testing performed at [address] [address] Platelet mean volume (Bld) [Entitic vol] 8.4 fL Normal 7.4-11.0 [facility] Comment on above: Performed By: #### M G #### Testing performed at [address] [address] Platelets (Bld) [#/Vol] 217 10*3/uL Normal 130-400 [facility] Comment on above: Performed By: #### M G #### Testing performed at [address] [address] RBC (Bld) [#/Vol] 3.93 10*6/uL Low 4.0-5.4 [facility] Comment on above: Performed By: #### M G #### Testing performed at [address] [address] WBC (Bld) [#/Vol] 4.8 10*3/uL Normal 3.6-11.0 [facility] Comment on above: Performed By: #### M G #### Testing performed at [address] [address] CMP FASTINGon 12-31-2024 A:G RATIO 1.6 RATIO Normal [facility] Comment on above: Performed By: #### M G #### Testing performed at [address] [address] ALBUMIN 4.1 G/dl Normal 3.5-5.0 [facility] Comment on above: Performed By: #### M G #### Testing performed at [address] [address] ALP [Catalytic activity/Vol] 74 U/L Normal 38-126 [facility] Comment on above: Performed By: #### M G #### Testing performed at [address] [address] ALT [Catalytic activity/Vol] 30 U/L Normal <35 [facility] Comment on above: Performed By: #### M G #### Testing performed at [address] [address] AST [Catalytic activity/Vol] 35 U/L Normal 14-36 [facility] Comment on above: Performed By: #### M G #### Testing performed at [address] [address] Bilirubin [Mass/Vol] 0.6 mg/dL Normal 0.2-1.3 [facility] Comment on above: Performed By: #### M G #### Testing performed at [address] [address] Calcium [Mass/Vol] 8.8 mg/dL Normal 8.4-10.2 [facility] Comment on above: Performed By: #### M G #### Testing performed at [address] [address] Chloride [Moles/Vol] 100 mmol/L Normal 98-107 [facility] Comment on above: Result Comment: Petr kuhn note: Triglyceride levels of 600mg/dL or higher may positively bias chloride results by approximately 2.1 mmol Performed By: #### M G #### Testing performed at [address] [address] CO2 [Moles/Vol] 27 mmol/L Normal 22-30 [facility] Comment on above: Performed By: #### M G #### Testing performed at [address] [address] Creatinine [Mass/Vol] 0.75 mg/dL Normal 0.70-1.20 [facility] Comment on above: Performed By: #### M G #### Testing performed at [address] [address] EST. GFR, 99 ml/min/1.73sq.m [facility] Comment on above: Performed By: #### M G #### Testing performed at [address] [address] EST. GFR,Non 82 ml/min/1.73sq.m Normal [facility] Comment on above: Performed By: #### M G #### Testing performed at [address] [address] GFR Information Average GFR for 60-6 9 years old = 85. Normal [facility] Comment on above: Result Comment: Residence Supervisor chanda Kidney disease, GFR = <60. Kidney failure, GFR = <15. The GFR estimate is not adjusted for extreme body surface area or acute process, nor has it been validated for women or ethnic groups other than and . Performed By: #### M G #### Testing performed at [address] [address] Glucose [Mass/Vol] 145 mg/dL High 70-100 [facility] Comment on above: Result Comment: NORMAL <100 mg/dL PREDIABETES 101-126 mg/dL DIABETES 126 mg/dL or higher Performed By: #### M G #### Testing performed at [address] [address] Potassium [Moles/Vol] 4.3 mmol/L Normal 3.5-5.1 [facility] Comment on above: Performed By: #### M G #### Testing performed at [address] [address] Protein [Mass/Vol] 6.7 g/dL Normal 6.3-8.2 [facility] Comment on above: Performed By: #### M G #### Testing performed at [address] [address] Sodium [Moles/Vol] 137 mmol/L Normal 137-145 [facility] Comment on above: Performed By: #### M G #### Testing performed at [address] [address] Urea nitrogen [Mass/Vol] 9 mg/dL Normal 7-20 [facility] Comment on above: Performed By: #### M G #### Testing performed at [address] [address] FERRITINon 12-31-2024 Ferritin [Mass/Vol] 18 ng/mL Normal 11.1-264 [facility] Comment on above: Result Comment: EUGENIE ENOPAUSAL FEMALES 6.9-282.5 POSTMENOPAUSAL FEMALES 14.0-233.1 Performed By: #### T SH2, FEPRO, T42, VITD #### Testing performed at [address] [address] FOLATEon 12-31-2024 FOLATE >20.0 High 2.56-20.0 [facility] Comment on above: Performed By: #### T SH2, FEPRO, T42, VITD #### Testing performed at [address] [address] FREE T4on 12-31-2024 Free T4 [Mass/Vol] 1.04 ng/dL Normal 0.78-2.19 [facility] Comment on above: Performed By: #### T SH2, FEPRO, T42, VITD #### Testing performed at [address] [address] HEMOGLOBIN A1Con 12-31-2024 Glucose [Mass/Vol] 114 mg/dL Normal [facility] Comment on above: Performed By: #### T SH2, FEPRO, T42, VITD #### Testing performed at [address] [address] HbA1c (Bld) [Mass fraction] 5.6 % Normal 0-6 [facility] Comment on above: Result Comment: NORMAL <5.7% PREDIABETES 5.7-6.4% DIABETES 6.5% OR HIGHER Performed By: #### T SH2, FEPRO, T42, VITD #### Testing performed at [address] [address] IRON PROFILEon 12-31-2024 IRON BINDING 508 UG/DL High 250-450 [facility] Comment on above: Performed By: #### T SH2, FEPRO, T42, VITD #### Testing performed at [facility] [place] [facility] [address] [place] [address] TRANSFERRIN SATURATION,CALCULATE D 12 % Normal [facility] Comment on above: Performed By: #### T SH2, FEPRO, T42, VITD #### Testing performed at [address] [address] Iron [Mass/Vol] 59 ug/dL Normal 37-170 [facility] Comment on above: Performed By: #### T SH2, FEPRO, T42, VITD #### Testing performed at [address] [address] LIPID PROFILEon 12-31-2024 Cholesterol [Mass/Vol] 212 mg/dL Normal 107-217 [facility] Comment on above: Performed By: #### M G #### Testing performed at [address] [address] Cholesterol in HDL [Mass/Vol] 56 mg/dL Normal 33-75 [facility] Comment on above: Performed By: #### M G #### Testing performed at [address] [address] Cholesterol in LDL [Mass/Vol] 80 mg/dL Normal <100 [facility] Comment on above: Performed By: #### M G #### Testing performed at [address] [address] Cholesterol in VLDL [Mass/Vol] 76 mg/dL High 5-25 [facility] Comment on above: Performed By: #### M G #### Testing performed at [address] [address] Cholesterol.total/Ch olesterol in HDL [Mass ratio] 3.79 {ratio} Normal [facility] Comment on above: Result Comment: RISK TOTAL/HDL RATIO MEN WOMEN 1/2 AVERAGE 3.43 3.27 AVERAGE 4.97 4.44 2X AVERAGE 9.55 7.05 3X AVERAGE 23.99 11.04 Performed By: #### M G #### Testing performed at [address] [address] Triglyceride [Mass/Vol] 379 mg/dL High 0-150 [facility] Comment on above: Performed By: #### M G #### Testing performed at [address] [address] MAGNESIUMon 12-31-2024 Magnesium [Mass/Vol] 1.5 mg/dL Low 1.6-2.3 [facility] Comment on above: Performed By: #### M G #### Testing performed at [address] [address] MALB/CREAT RATIO,URINEon MALB/CREAT RATIO,URINE 4.5 mg MALB/g CREAT Normal 1.3-30.0 [facility] Comment on above: Performed By: #### T SH2, FEPRO, T42, VITD #### Testing performed at [address] [address] MICROALBUMIN,RANDOM URINE 7.3 mg/L Normal 0.0-16.7 [facility] Comment on above: Performed By: #### T SH2, FEPRO, T42, VITD #### Testing performed at [address] [address] URINE CREATININE RANDOM 161.3 MG/DL Normal [facility] Comment on above: Result Comment: NO N ORMAL VALUES ESTABLISHED FOR RANDOM SPECIMENS Performed By: #### T SH2, FEPRO, T42, VITD #### Testing performed at [address] [address] PROTEIN CREATININE RATIOon 0 12-31-2024 PROTEIN CREATININE RATIO NOT CALCULATED Normal [facility] Comment on above: Result Comment: REFERENCE RANGES <0.2 NORMAL 0.2-3.5 NON-NEPHROTIC >3.5 NEPHROTIC Performed By: #### P CR #### Testing performed at [address] [address] URINE CREATININE RANDOM 159.8 MG/DL Normal [facility] Comment on above: Result Comment: NO N ORMAL VALUES ESTABLISHED FOR RANDOM SPECIMENS Performed By: #### P CR #### Testing performed at [address] [address] URINE TP RANDOM <5 Normal 0-12 [facility] Comment on above: Performed By: #### P CR #### Testing performed at [address] [address] PTH,INTACTon 12-31-2024 PTH,INTACT 28.1 pg/mL Normal 14.5-75.2 [facility] Comment on above: Performed By: #### M G #### Testing performed at [address] [address] TSHon 12-31-2024 TSH 0.857 uIU/ML Normal 0.465-4.680 [facility] Comment on above: Performed By: #### T SH2, FEPRO, T42, VITD #### Testing performed at [address] [address] URIC ACIDon 12-31-2024 Urate [Mass/Vol] 8.7 mg/dL High 2.5-6.2 [facility] Comment on above: Performed By: #### M G #### Testing performed at [address] [address] VITAMIN B12on 12-31-2024 Cobalamin (Vitamin B12) [Mass/Vol] 811 pg/mL Normal 239-931 [facility] Comment on above: Performed By: #### T SH2, FEPRO, T42, VITD #### Testing performed at [address] [address] US.doppler Extremity vessels - left 12-05-2024 APPROVED [...] patent and compressible with normal doppler responses. [facility] Study observation (narrative) [facility] US.doppler Extremity vessels - leftOrdered By: Dawn Bedolla on 12-05-2024 [facility] Work Phone: RF videography Hypopharynx a nd [...] therapy report for much more detailed evaluation. [facility] Study observation (narrative) [facility] RF videography Hypopharynx a nd Esophagus Views W liquid and paste contrast PO during swallowingOrdered By: Lolita Funk on 11-29-2024 [facility] XR FLUORO MODIFIED BARIUM SW ALLOW [...] report for much more detailed evaluation. Normal [facility] BASIC METABOLIC PANELon 10-25 Anion gap [Moles/Vol] 9 mmol/L MMOL/L [facility] Calcium [Mass/Vol] 8.5 mg/dL [facility] Chloride [Moles/Vol] 101 mmol/L [facility] Comment on above: Please note: Triglyc eride levels of 600mg/dL or higher may positively bias chloride results by approximately 2.1 mmol CO2 [Moles/Vol] 24 mmol/L [facility] Creatinine [Mass/Vol] 0.70 mg/dL [facility] Average GFR for 60-6 9 years old = 85. [facility] Comment on above: Chronic Kidney disea se, GFR = <60. Kidney failure, GFR = <15. The GFR estimate is not adjusted for extreme body surface area or acute process, nor has it been validated for women or ethnic groups other than and . GFR/1.73 sq M.predicted among blacks MDRD (S/P/Bld) [Vol rate/Area] 108 mL/min/{1.73_m2} ml/min/1.73sq .m [employer] [facility] GFR/1.73 sq M.predicted among non-blacks MDRD (S/P/Bld) [Vol rate/Area] 89 mL/min/{1.73_m2} ml/min/1.73sq .m [facility] Glucose post fast [Mass/Vol] 165 mg/dL High [facility] Comment on above: NORMAL <100 mg/dL PREDIABETES 101-126 mg/dL DIABETES 126 mg/dL or higher Interpretation and review of laboratory results Abnormal [facility] Potassium [Moles/Vol] 3.8 mmol/L [facility] Sodium [Moles/Vol] 134 mmol/L Low [facility] Urea nitrogen [Mass/Vol] 8 mg/dL [facility] BMP FASTINGon 11-13-2024 Anion gap [Moles/Vol] 9 mmol/L Normal [facility] Comment on above: Performed By: #### A CBC, BMPF #### Testing performed at [place] [id number] Calcium [Mass/Vol] 8.5 mg/dL Normal 8.4-10.2 [facility] Comment on above: Performed By: #### A CBC, BMPF #### Testing performed at [address] [address] Chloride [Moles/Vol] 101 mmol/L Normal 98-107 [facility] Comment on above: Result Comment: Petr kuhn note: Triglyceride levels of 600mg/dL or higher may positively bias chloride results by approximately 2.1 mmol Performed By: #### A CBC, BMPF #### Testing performed at [address] [address] CO2 [Moles/Vol] 24 mmol/L Normal 22-30 [facility] Comment on above: Performed By: #### A CBC, BMPF #### Testing performed at [address] [address] Creatinine [Mass/Vol] 0.70 mg/dL Normal 0.70-1.20 [facility] Comment on above: Performed By: #### A CBC, BMPF #### Testing performed at [address] [address] EST. GFR, 108 ml/min/1.73sq.m [facility] Comment on above: Performed By: #### A CBC, BMPF #### Testing performed at [address] [address] EST. GFR,Non 89 ml/min/1.73sq.m [facility] Comment on above: Performed By: #### A CBC, BMPF #### Testing performed at [address] [address] GFR Information Average GFR for 60-6 9 years old = 85. Normal [facility] Comment on above: Result Comment: Residence Supervisor chanda Kidney disease, GFR = <60. Kidney failure, GFR = <15. The GFR estimate is not adjusted for extreme body surface area or acute process, nor has it been validated for women or ethnic groups other than and . Performed By: #### A CBC, BMPF #### Testing performed at [address] [address] Glucose [Mass/Vol] 165 mg/dL High 70-100 [facility] Comment on above: Result Comment: NORMAL <100 mg/dL PREDIABETES 101-126 mg/dL DIABETES 126 mg/dL or higher Performed By: #### A CBC, BMPF #### Testing performed at [address] [address] Potassium [Moles/Vol] 3.8 mmol/L Normal 3.5-5.1 [facility] Comment on above: Performed By: #### A CBC, BMPF #### Testing performed at [address] [address] Sodium [Moles/Vol] 134 mmol/L Low 137-145 [facility] Comment on above: Performed By: #### A CBC, BMPF #### Testing performed at [address] [address] Urea nitrogen [Mass/Vol] 8 mg/dL Normal 7-20 [facility] Comment on above: Performed By: #### A CBC, BMPF #### Testing performed at [address] [address] CBCon 11-13-2024 ABSOLUTE BAS 0.0 10*3/uL Normal 0.0-0.2 [facility] Comment on above: Performed By: #### A CBC, BMPF #### Testing performed at [address] [address] ABSOLUTE EOS 0.0 10*3/uL Normal 0.0-0.7 [facility] Comment on above: Performed By: #### A CBC, BMPF #### Testing performed at [address] [address] ABSOLUTE NEUTROPHIL COUNT 7.5 10*3/uL High 1.4-6.5 [facility] Comment on above: Performed By: #### A CBC, BMPF #### Testing performed at [address] [address] Basophils/100 WBC (Bld) 0.0 % Normal 0.0-2.0 [facility] Comment on above: Performed By: #### A CBC, BMPF #### Testing performed at [address] [address] DTYPE AUTO DIFF Normal [facility] Comment on above: Performed By: #### A CBC, BMPF #### Testing performed at [address] [address] Eosinophils/100 WBC (Bld) 0.0 % Normal 0.0-11.0 [facility] Comment on above: Performed By: #### A CBC, BMPF #### Testing performed at [address] [address] Erythrocyte distribution width (RBC) [Ratio] 13.4 % Normal 11.5-14.5 [facility] Comment on above: Performed By: #### A CBC, BMPF #### Testing performed at [address] [address] Hematocrit (Bld) [Volume fraction] 31.4 % Low 36.0-48.0 [facility] Comment on above: Performed By: #### A CBC, BMPF #### Testing performed at [address] [address] Hemoglobin (Bld) [Mass/Vol] 10.6 g/dL Low 12.0-16.0 [facility] Comment on above: Performed By: #### A CBC, BMPF #### Testing performed at [address] [address] Lymphocytes (Bld) [#/Vol] 1.6 10*3/uL Normal 1.2-3.4 [facility] Comment on above: Performed By: #### A CBC, BMPF #### Testing performed at [address] [address] Lymphocytes/100 WBC (Bld) 16.9 % Low 20.0-55.0 [facility] Comment on above: Performed By: #### A CBC, BMPF #### Testing performed at [address] [address] MCH (RBC) [Entitic mass] 32.2 pg Normal 26.0-35.0 [facility] Comment on above: Performed By: #### A CBC, BMPF #### Testing performed at [address] [address] MCHC (RBC) [Mass/Vol] 33.8 g/dL Normal 27.0-37.0 [facility] Comment on above: Performed By: #### A CBC, BMPF #### Testing performed at [address] [address] MCV (RBC) [Entitic vol] 95.2 fL Normal 80.0-100.0 [facility] Comment on above: Performed By: #### A CBC, BMPF #### Testing performed at [address] [address] Monocytes (Bld) [#/Vol] 0.5 10*3/uL Normal 0.0-0.7 [facility] Comment on above: Performed By: #### A CBC, BMPF #### Testing performed [address] [address] [address] Monocytes/100 WBC (Bld) 5.0 % Normal 0.0-10.0 [facility] Comment on above: Performed By: #### A CBC, BMPF #### Testing performed at [address] [address] Neutrophils/100 WBC (Bld) 78.1 % High 37.0-75.0 [facility] Comment on above: Performed By: #### A CBC, BMPF #### Testing performed at [address] [address] Platelet mean volume (Bld) [Entitic vol] 9.5 fL Normal 7.4-11.0 [facility] Comment on above: Performed By: #### A CBC, BMPF #### Testing performed at [address] [address] Platelets (Bld) [#/Vol] 159 10*3/uL Normal 130-400 [facility] Comment on above: Performed By: #### A CBC, BMPF #### Testing performed at [address] [address] RBC (Bld) [#/Vol] 3.30 10*6/uL Low 4.0-5.4 [facility] Comment on above: Performed By: #### A CBC, BMPF #### Testing performed at [address] [address] WBC (Bld) [#/Vol] 9.6 10*3/uL Normal 3.6-11.0 [facility] Comment on above: Performed By: #### A CBC, BMPF #### Testing performed at [address] [address] CBC, EDIF, PLATELETon 2024 ABSOLUTE BASOPHIL COUNT 0.0 10*3/uL 0.0 - 0.2 10*3/uL [facility] Basophils/100 WBC (Bld) 0.0 % 0.0 - 2.0 % [facility] Differential cell count method Nom (Bld) AUTO DIFF % [facility] Eosinophils (Bld) [#/Vol] 0.0 10*3/uL 0.0 - 0.7 10*3/uL [facility] Eosinophils/100 WBC (Bld) 0.0 % 0.0 - 11.0 % [facility] Erythrocyte distribution width (RBC) [Ratio] 13.4 % 11.5 - 14.5 % [facility] Hematocrit (Bld) [Volume fraction] 31.4 % Low 36.0 - 48.0 % [facility] Hemoglobin (Bld) [Mass/Vol] 10.6 g/dL Low [facility] Interpretation and review of laboratory results Abnormal [facility] Lymphocytes (Bld) [#/Vol] 1.6 10*3/uL 1.2 - 3.4 10*3/uL [facility] Lymphocytes/100 WBC (Bld) 16.9 % Low 20.0 - 55.0 % [facility] MCH (RBC) [Entitic mass] 32.2 pg 26.0 - 35.0 PG [facility] MCHC (RBC) [Mass/Vol] 33.8 g/dL [facility] MCV (RBC) [Entitic vol] 95.2 fL [facility] Monocytes (Bld) [#/Vol] 0.5 10*3/uL 0.0 - 0.7 10*3/uL [facility] Monocytes/100 WBC (Bld) 5.0 % 0.0 - 10.0 % [facility] Neutrophils (Bld) [#/Vol] 7.5 10*3/uL High 1.4 - 6.5 10*3/uL [facility] Neutrophils/100 WBC (Bld) 78.1 % High 37.0 - 75.0 % [facility] Platelet mean volume (Bld) [Entitic vol] 9.5 fL [facility] Platelets (Bld) [#/Vol] 159 10*3/uL 130 - 400 10*3/uL [facility] RBC (Bld) [#/Vol] 3.30 10*6/uL Low 4.0 - 5.4 10*6/uL [facility] WBC (Bld) [#/Vol] 9.6 10*3/uL 3.6 - 11.0 10*3/uL [facility] XR KNEE LEFT 1-2 VIEWSon XR KNEE LEFT 1-2 VIEWS EXAM: XR KNEE LEFT 1-2 VIEWS HISTORY: tka. COMPARISON: Preop 08/30/2024. FINDINGS/IMPRESSION: 1. Postop left total knee prosthesis. 2. Anatomic alignment. 3. Surgical drain superiorly. 4. Patellar prosthesis normal. Normal [facility] XR Knee - left 2 Viewson FINDINGS/IMPRESSION: [...] Surgical drain superiorly. 4. Patellar prosthesis normal. [facility] Radiology Study observation (narrative) [facility] XR Knee - left 2 ViewsOrdere d By: Yogesh Ste[facility] Work Phone: No Panel Informationon 10-29 [facility] [place] Gastro[facility]ology Patient Name: Elena Galeano Procedure Date: 10/29/2024 9:56 AM Date of : 1960 Admit Type: Outpatient Age: 64 Room: Procedure Room #2 Gender: Female Note Status: Finalized Attending MD: Delilah Ellis JR, DO, [id number] Instrument Name: [id number] Procedure: Upper GI endoscopy Attending Participation: I [...] office PRN. Procedure Code(s): --- Professional --- 24161, Esophagogastroduodenos copy, flexible, transoral; diagnostic, including collection of specimen(s) by brushing or washing, when performed (separate procedure) Diagnosis Code(s): --- Professional --- K44.9, Diaphragmatic hernia without obstruction or gangrene R13.10, Dysphagia, unspecified CPT copyright 2022 [employer]. All rights reserved. The codes documented in this report are preliminary and upon flush tester review may be revised to meet current compliance requirements. Delilah Ellis JR, DO 10/29/2024 10:26:10 AM (more content not included)... LAB, [facility] Radiology Study observation (narrative) [facility] CBCon 10-15-2024 ABSOLUTE BAS 0.0 10*3/uL Normal 0.0-0.2 [facility] Comment on above: Performed By: #### M G #### Testing performed at [address] [address] ABSOLUTE EOS 0.1 10*3/uL Normal 0.0-0.7 [facility] Comment on above: Performed By: #### M G #### Testing performed at [address] [address] ABSOLUTE NEUTROPHIL COUNT 2.2 10*3/uL Normal 1.4-6.5 [facility] Comment on above: Performed By: #### M G #### Testing performed at [address] [address] Basophils/100 WBC (Bld) 1.1 % Normal 0.0-2.0 [facility] Comment on above: Performed By: #### M G #### Testing performed at [address] [address] DTYPE AUTO DIFF Normal [facility] Comment on above: Performed By: #### M G #### Testing performed at [address] [address] Eosinophils/100 WBC (Bld) 1.2 % Normal 0.0-11.0 [facility] Comment on above: Performed By: #### M G #### Testing performed at [address] [address] Lymphocytes (Bld) [#/Vol] 1.6 10*3/uL Normal 1.2-3.4 [facility] Comment on above: Performed By: #### M G #### Testing performed at [address] [address] Lymphocytes/100 WBC (Bld) 36.9 % Normal 20.0-55.0 [facility] Comment on above: Performed By: #### M G #### Testing performed at [address] [address] Monocytes (Bld) [#/Vol] 0.5 10*3/uL Normal 0.0-0.7 [facility] Comment on above: Performed By: #### M G #### Testing performed at [address] [address] Monocytes/100 WBC (Bld) 11.6 % High 0.0-10.0 [facility] Comment on above: Performed By: #### M G #### Testing performed at [address] [address] Neutrophils/100 WBC (Bld) 49.2 % Normal 37.0-75.0 [facility] Comment on above: Performed By: #### M G #### Testing performed at [address] [address] Erythrocyte distribution width (RBC) [Ratio] 13.4 % Normal 11.5-14.5 [facility] Comment on above: Performed By: #### M G #### Testing performed at [address] [address] Hematocrit (Bld) [Volume fraction] 39.4 % Normal 36.0-48.0 [facility] Comment on above: Performed By: #### M G #### Testing performed at [address] [address] Hemoglobin (Bld) [Mass/Vol] 13.1 g/dL Normal 12.0-16.0 [facility] Comment on above: Performed By: #### M G #### Testing performed at [address] [address] MCH (RBC) [Entitic mass] 32.1 pg Normal 26.0-35.0 [facility] Comment on above: Performed By: #### M G #### Testing performed at [address] [address] MCHC (RBC) [Mass/Vol] 33.2 g/dL Normal 27.0-37.0 [facility] Comment on above: Performed By: #### M G #### Testing performed at [address] [address] MCV (RBC) [Entitic vol] 96.7 fL Normal 80.0-100.0 [facility] Comment on above: Performed By: #### M G #### Testing performed at [address] [address] Platelet mean volume (Bld) [Entitic vol] 9.3 fL Normal 7.4-11.0 [facility] Comment on above: Performed By: #### M G #### Testing performed at [address] [address] Platelets (Bld) [#/Vol] 201 10*3/uL Normal 130-400 [facility] Comment on above: Performed By: #### M G #### Testing performed at [address] [address] RBC (Bld) [#/Vol] 4.08 10*6/uL Normal 4.0-5.4 [facility] Comment on above: Performed By: #### M G #### Testing performed at [address] [address] WBC (Bld) [#/Vol] 4.4 10*3/uL Normal 3.6-11.0 [facility] Comment on above: Performed By: #### M G #### Testing performed at [address] [address] CMP FASTINGon 10-15-2024 A:G RATIO 1.7 RATIO Normal [facility] Comment on above: Performed By: #### M G #### Testing performed at [address] [address] ALBUMIN 4.3 G/dl Normal 3.5-5.0 [facility] Comment on above: Performed By: #### M G #### Testing performed at [address] [address] ALP [Catalytic activity/Vol] 48 U/L Normal 38-126 [facility] Comment on above: Performed By: #### M G #### Testing performed at [address] [address] ALT [Catalytic activity/Vol] 70 U/L High <35 [facility] Comment on above: Performed By: #### M G #### Testing performed at [address] [address] AST [Catalytic activity/Vol] 51 U/L High 14-36 [facility] Comment on above: Performed By: #### M G #### Testing performed at [address] [address] Bilirubin [Mass/Vol] 0.4 mg/dL Normal 0.2-1.3 [facility] Comment on above: Performed By: #### M G #### Testing performed at [address] [address] Calcium [Mass/Vol] 9.8 mg/dL Normal 8.4-10.2 [facility] Comment on above: Performed By: #### M G #### Testing performed at [address] [address] Chloride [Moles/Vol] 104 mmol/L Normal 98-107 [facility] Comment on above: Result Comment: Plea note: Triglyceride levels of 600mg/dL or higher may positively bias chloride results by approximately 2.1 mmol Performed By: #### M G #### Testing performed at [address] [address] CO2 [Moles/Vol] 30 mmol/L Normal 22-30 [facility] Comment on above: Performed By: #### M G #### Testing performed at [address] [address] Creatinine [Mass/Vol] 0.90 mg/dL Normal 0.70-1.20 [facility] Comment on above: Performed By: #### M G #### Testing performed at [address] [address] EST. GFR, 81 ml/min/1.73sq.m Normal [facility] Comment on above: Performed By: #### M G #### Testing performed at [address] [address] EST. GFR,Non 67 ml/min/1.73sq.m [facility] Comment on above: Performed By: #### M G #### Testing performed at [address] [address] GFR Information Average GFR for 60-6 9 years old = 85. Normal [facility] Comment on above: Result Comment: Residence Supervisor chanda Kidney disease, GFR = <60. Kidney failure, GFR = <15. The GFR estimate is not adjusted for extreme body surface area or acute process, nor has it been validated for women or ethnic groups other than and . Performed By: #### M G #### Testing performed at [address] [address] Glucose [Mass/Vol] 151 mg/dL High 70-100 [facility] Comment on above: Result Comment: NORMAL <100 mg/dL PREDIABETES 101-126 mg/dL DIABETES 126 mg/dL or higher Performed By: #### M G #### Testing performed at [address] [address] Potassium [Moles/Vol] 4.0 mmol/L Normal 3.5-5.1 [facility] Comment on above: Performed By: #### M G #### Testing performed at [address] [address] Protein [Mass/Vol] 6.8 g/dL Normal 6.3-8.2 [facility] Comment on above: Performed By: #### M G #### Testing performed at [address] [address] Sodium [Moles/Vol] 139 mmol/L Normal 137-145 [facility] Comment on above: Performed By: #### M G #### Testing performed at [address] [address] Urea nitrogen [Mass/Vol] 13 mg/dL Normal 7-20 [facility] Comment on above: Performed By: #### M G #### Testing performed at [address] [address] HEMOGLOBIN A1Con 10-15-2024 Glucose [Mass/Vol] 123 mg/dL Normal [facility] Comment on above: Performed By: #### T SH2, FEPRO, T42, VITD #### Testing performed at [address] [address] HbA1c (Bld) [Mass fraction] 5.9 % Normal 0-6 [facility] Comment on above: Result Comment: NORMAL <5.7% PREDIABETES 5.7-6.4% DIABETES 6.5% OR HIGHER Performed By: #### T SH2, FEPRO, T42, VITD #### Testing performed at [address] [address] MRSA SCREENon 10-15-2024 MRSA DNA NEWTON+probe Ql (Unsp spec) Negative Normal NEGATIVE [facility] Comment on above: Performed By: #### A CBC, BMPF #### Testing performed at [address] [address] STAPH AUREUS SCREEN Negative Normal NEGATIVE [facility] Comment on above: Result Comment: TEST ING PERFORMED BY PCR Performed By: #### A CBC, BMPF #### Testing performed at [address] [address] PROTIMEon 10-15-2024 INR Coag (PPP) [Relative time] 0.99 {INR} Normal 0.85-1.10 [facility] Comment on above: Result Comment: 2.0-3.0 THERAPEUTIC RANGE 2.5-3.5 MECHANICAL VALVE RANGE Performed By: #### M G #### Testing performed at [address] [place] [address] PT Coag (PPP) [Time] 13.2 s Normal 11.8-14.4 [facility] Comment on above: Performed By: #### M G #### Testing performed at [address] [address] URINE MACROSCOPICon 10-15-20 24 Bilirubin Ql (U) Negative Normal NEGATIVE [facility] Comment on above: Performed By: #### U LINETTE, UMAC #### Testing performed at [address] [address] Clarity (U) SLIGHTLY CLOUDY Abnormal CLEAR [facility] Comment on above: Performed By: #### U LINETTE, UMAC #### Testing performed at [address] [address] Color (U) YELLOW Normal YELLOW [facility] Comment on above: Performed By: #### U LINETTE, UMAC #### Testing performed at [address] [address] Glucose Ql (U) Negative Normal NEGATIVE [facility] Comment on above: Performed By: #### U LINETTE, UMAC #### Testing performed at [address] [address] pH (U) 5.5 [pH] Normal 5.0-7.0 [facility] Comment on above: Performed By: #### U LINETTE, UMAC #### Testing performed at [address] [address] URINE HEMOGLOBIN Negative Normal NEGATIVE [facility] Comment on above: Performed By: #### U LINETTE, UMAC #### Testing performed at [address] [place] [address] URINE KETONE Negative Normal NEGATIVE [facility] Comment on above: Performed By: #### U LINETTE, UMAC #### Testing performed at [address] [address] URINE LEUKOTEST TRACE Abnormal NEGATIVE [facility] Comment on above: Performed By: #### U LINETTE, UMAC #### Testing performed at [address] [address] URINE NITRATES Negative Normal NEGATIVE [facility] Comment on above: Performed By: #### U LINETTE, UMAC #### Testing performed at [address] [address] URINE SPEC GRAVITY 1.025 Normal 1.010-1.025 [facility] Comment on above: Performed By: #### U LINETTE, UMAC #### Testing performed at [address] [address] URINE TOTAL PROTEIN Negative Normal NEGATIVE [facility] Comment on above: Performed By: #### U LINETTE, UMAC #### Testing performed at [address] [address] Urobilinogen Qn (U) 0.2 {Mima'U}/dL Normal 0.2-1.0 [facility] Comment on above: Performed By: #### U LINETTE, UMAC #### Testing performed at [address] [address] URINE MICROSCOPICon 12-20 24 BACTERIA 2+ Abnormal NEGATIVE [facility] Comment on above: Performed By: #### A CBC, BMPF #### Testing performed at [address] [address] CASTS NONE Normal NONE [facility] Comment on above: Performed By: #### A CBC, BMPF #### Testing performed at [address] [place] [address] CRYSTAL NONE Normal [facility] Comment on above: Performed By: #### A CBC, BMPF #### Testing performed at [address] [address] Epithelial cells LM Ql (Urine sed) 10 TO 20 Normal [facility] Comment on above: Performed By: #### A CBC, BMPF #### Testing performed at [address] [address] Mucus Ql (Urine sed) Negative Normal NEGATIVE [facility] Comment on above: Performed By: #### A CBC, BMPF #### Testing performed at [address] [place] [address] URINE COMMENT POSSIBLY CONTAMINATE D SPECIMEN, CULTURE MUST BE ORDERED SEPARATELY IF DEEMED NECESSARY. Normal [facility] Comment on above: Performed By: #### A CBC, BMPF #### Testing performed at [address] [address] URINE RBC'S Negative Normal NEGATIVE [facility] Comment on above: Performed By: #### A CBC, BMPF #### Testing performed at [address] [address] URINE WBC'S '5 TO 10 Normal NEGATIVE [facility] Comment on above: Performed By: #### A CBC, BMPF #### Testing performed at [address] [address] FUNDUS PHOTOS OU (BOTH EYES) on 10-02-2024 [facility] Radiology Study observation (narrative) [facility] OCT OPTIC NERVE CIRRUS OU (B OTH EYES)on 10-02-2024 [facility] Radiology Study observation (narrative) [facility] CBC AND ELECTRONIC DIFFon Basophils (Bld) [#/Vol] K/uL Male: 0.00-0.09, Female: 0.00-0.15 K/uL [facility] Basophils/100 WBC (Bld) 0.5 % [facility] Differential cell count method Nom (Bld) Electronic Differential [facility] Eosinophils (Bld) [#/Vol] 0.04 10*3/uL Male: 0.00-0.48, Female: 0.00-0.42 [facility] Eosinophils/100 WBC (Bld) 0.7 % [facility] Erythrocyte distribution width (RBC) [Ratio] 12.2 % Male: 10.9-14.9, Female: 10.8-14.9 [facility] Hematocrit (Bld) [Volume fraction] 37.8 % Low Male: 39.6-48.8, Female: 34.9-44.3 [facility] Hemoglobin (Bld) [Mass/Vol] 13.0 g/dL Low Male: 13.4-16.8, Female: 11.4-15.2 [facility] Immature granulocytes (Bld) [#/Vol] K/uL Male: <=0.07, Female: <=0.08 K/uL [facility] Immature granulocytes/100 WBC (Bld) 0.4 % [facility] Interpretation and review of laboratory results Abnormal [facility] Lymphocytes (Bld) [#/Vol] 2.35 10*3/uL Male: 0.83-3.57, Female: 1.16-3.51 [facility] Lymphocytes/100 WBC (Bld) 43.0 % [facility] MCH (RBC) [Entitic mass] 32.3 pg Male: 26.1-33.3, Female: 25.9-33.9 [facility] MCHC (RBC) [Mass/Vol] 34.4 g/dL Male: 31.9-36.5, Female: 31.4-35.9 [facility] MCV (RBC) [Entitic vol] 94.0 fL Male: 79.0-94.5, Female: 79.6-97.7 [facility] Monocytes (Bld) [#/Vol] 0.64 10*3/uL Male: 0.24-0.93 Female: 0.22-0.87 [facility] Monocytes/100 WBC (Bld) 11.7 % [facility] Neutrophils (Bld) [#/Vol] 2.38 10*3/uL Male: 1.57-6.19, Female: 1.64-7.28 [facility] Nucleated RBC/100 WBC (Bld) [Ratio] 0.0 % NINF [facility] Platelet mean volume (Bld) [Entitic vol] 10.4 fL Male: 8.7-12.3, Female: 8.5-12.2 [facility] Platelets (Bld) [#/Vol] 208 10*3/uL Male: 146-337, Female: 150-393 [facility] RBC (Bld) [#/Vol] 4.02 10*6/uL Low Male: 4.38-5.83, Female: 3.91-5.04 M/uL [facility] Segmented neutrophils/100 WBC (Bld) 43.7 % [facility] WBC (Bld) [#/Vol] 5.46 10*3/uL Male: 3.73-10.10, Female: 3.99-11.19 [facility] Baso Auto < Normal Male: 0.00-0.09, Female: 0.00-0.15 [facility] Comment on above: Performed By: #### L AB980 #### [facility] (DEFAULT) [address] [place] [address] Basophils/100 WBC (Bld) 0.5 % Normal [facility] Comment on above: Performed By: #### L AB980 #### [facility] (DEFAULT) [address] [address] DIFF STATUS Electronic Differential Normal [facility] Comment on above: Performed By: #### L AB980 #### [facility] (DEFAULT) [address] [place] [address] Eosinophils (Bld) [#/Vol] 0.04 10*3/uL Normal Male: 0.00-0.48, Female: 0.00-0.42 [facility] Comment on above: Performed By: #### L AB980 #### [facility] (DEFAULT) [address] [address] Eosinophils/100 WBC (Bld) 0.7 % Normal [facility] Comment on above: Performed By: #### L AB980 #### [facility] (DEFAULT) [address] [address] Hematocrit (Bld) [Volume fraction] 37.8 % Low Male: 39.6-48.8, Female: 34.9-44.3 [facility] Comment on above: Performed By: #### L AB980 #### [facility] (DEFAULT) [address] [address] Hemoglobin (Bld) [Mass/Vol] 13.0 g/dL Low Male: 13.4-16.8, Female: 11.4-15.2 [facility] Comment on above: Performed By: #### L AB980 #### U [facility] (DEFAULT) [address] [address] Immature Grans % 0.4 % Normal [facility] Comment on above: Performed By: #### L AB980 #### U [facility] (DEFAULT) [address] [address] Immature Grans Absolute < Normal Male: <=0.07, Female: <=0.08 [facility] Comment on above: Performed By: #### L AB980 #### [place] [facility] (DEFAULT) [address] [address] Lymphocytes (Bld) [#/Vol] 2.35 10*3/uL Normal Male: 0.83-3.57, Female: 1.16-3.51 [facility] Comment on above: Performed By: #### L AB980 #### [facility] (DEFAULT) [address] [address] Lymphocytes/100 WBC (Bld) 43.0 % Normal [facility] Comment on above: Performed By: #### L AB980 #### [facility] (DEFAULT) [address] [address] MCV (RBC) [Entitic vol] 94.0 fL Normal Male: 79.0-94.5, Female: 79.6-97.7 [facility] Comment on above: Performed By: #### L AB980 #### [facility] (DEFAULT) [address] [address] Mean Cell Hgb 32.3 pg Normal Male: 26.1-33.3, Female: 25.9-33.9 [facility] Comment on above: Performed By: #### L AB980 #### U [facility] (DEFAULT) [address] [address] Mean Cell Hgb Conc 34.4 g/dL Normal Male: 31.9-36.5, Female: 31.4-35.9 [facility] Comment on above: Performed By: #### L AB980 #### U [facility] (DEFAULT) [address] [place] [address] Monocytes (Bld) [#/Vol] 0.64 10*3/uL Normal Male: 0.24-0.93 Female: 0.22-0.87 [facility] Comment on above: Performed By: #### L AB980 #### U [facility] (DEFAULT) [address] [place] [address] Monocytes/100 WBC (Bld) 11.7 % Normal [facility] Comment on above: Performed By: #### L AB980 #### [facility] (DEFAULT) [address] [address] Nucleated RBC 0.0 /100 WBC Normal <=0.2 [facility] Comment on above: Performed By: #### L AB980 #### U [facility] (DEFAULT) [address] [address] Platelet mean volume (Bld) [Entitic vol] 10.4 fL Normal Male: 8.7-12.3, Female: 8.5-12.2 [facility] Comment on above: Performed By: #### L AB980 #### [facility] (DEFAULT) [address] [address] Platelets (Bld) [#/Vol] 208 10*3/uL Normal Male: 146-337, Female: 150-393 [facility] Comment on above: Performed By: #### L AB980 #### U [facility] (DEFAULT) [address] [address] RBC (Bld) [#/Vol] 4.02 10*6/uL Low Male: 4.38-5.83, Female: 3.91-5.04 [facility] Comment on above: Performed By: #### L AB980 #### U [facility] (DEFAULT) [address] [address] RBC Distribution 12.2 % Normal Male: 10.9-14.9, Female: 10.8-14.9 [facility] Comment on above: Performed By: #### L AB980 #### [facility] (DEFAULT) [address] [place] [address] Segs + Bands Auto 43.7 % Normal [facility] Comment on above: Performed By: #### L AB980 #### U [facility] (DEFAULT) [address] [place] [address] Segs + Bands,Absolute Auto 2.38 K/uL Normal Male: 1.57-6.19, Female: 1.64-7.28 [facility] Comment on above: Performed By: #### L AB980 #### [facility] (DEFAULT) [address] [place] [address] WBC (Bld) [#/Vol] 5.46 10*3/uL Normal Male: 3.73-10.10, Female: 3.99-11.19 [facility] Comment on above: Performed By: #### L AB980 #### [facility] (DEFAULT) [address] [place] [address] COMPREHENSIVE METABOLIC PANE Ethan 09-19-2024 Albumin [Mass/Vol] 4.2 g/dL Male: 3.5-5.0, Female: 3.5-5.0 [facility] ALP [Catalytic activity/Vol] 55 U/L Male: 32-126, Female: 32-126 [facility] ALT [Catalytic activity/Vol] 26 U/L Male: 10-52, Female: 9-48 [facility] Anion gap [Moles/Vol] 14 mmol/L 7 - 17 mmol/L [facility] AST [Catalytic activity/Vol] 23 U/L Male: 10-39, Female: 10-39 [facility] Bilirubin [Mass/Vol] 0.5 mg/dL NINF - 1.5 mg/dL [facility] Calcium [Mass/Vol] 9.5 mg/dL 8.6 - 10. 5 mg/dL [facility] Chloride [Moles/Vol] 98 mmol/L 98 - 10 8 mmol/L [facility] CO2 [Moles/Vol] 28 mmol/L 21 - 31 mmol/L [facility] Creatinine [Mass/Vol] 0.97 mg/dL Male: 0.7-1.3, Female: 0.5-1.2 [facility] eGFR, CKD-EPI, Female 64 - PINF [facility] Comment on above: Reported eGFR is bas ed on the CKD-EPI 2020 equation using creatinine, age, and sex. eGFR, CKD-EPI, Male 86 - PINF [facility] Comment on above: Reported eGFR is bas ed on the CKD-EPI 2020 equation using creatinine, age, and sex. Glucose [Mass/Vol] 125 mg/dL High 70 - 99 mg/dL [facility] Interpretation and review of laboratory results Abnormal [facility] Osmolality Calc [Osmolality] 286 [facility] Potassium [Moles/Vol] 4.0 mmol/L 3.5 - 5.0 mmol/L [facility] Protein [Mass/Vol] 7.1 g/dL 6.4 - 8.3 g/dL [facility] Sodium [Moles/Vol] 136 mmol/L 135 - 145 mmol/L [facility] Urea nitrogen [Mass/Vol] 9 mg/dL 7 - 25 mg/dL [facility] Urea nitrogen/Creatinine [Mass ratio] 9 mg/mg [facility] Albumin [Mass/Vol] 4.2 g/dL Normal Male: 3.5-5.0, Female: 3.5-5.0 [facility] Comment on above: Performed By: #### L DO CMPN #### [facility] (DEFAULT) [address] [place] [address] ALP [Catalytic activity/Vol] 55 U/L Normal Male: 32-126, Female: 32-126 [facility] Comment on above: Performed By: #### L DO, CMPN #### [facility] (DEFAULT) [address] [place] [address] ALT [Catalytic activity/Vol] 26 U/L Normal Male: 10-52, Female: 9-48 [facility] Comment on above: Performed By: #### L DO, CMPN #### [facility] (DEFAULT) [address] [place] [address]952 Anion gap [Moles/Vol] 14 mmol/L Normal 7-17 [facility] Comment on above: Performed By: #### L DO, CMPN #### [facility] (DEFAULT) [address] [place] [address] 30522 AST [Catalytic activity/Vol] 23 U/L Normal Male: 10-39, Female: 10-39 [facility] Comment on above: Performed By: #### L DO, CMPN #### [facility] (DEFAULT) [address] [place] [address]9840 Bilirubin [Mass/Vol] 0.5 mg/dL Normal <1.5 [facility] Comment on above: Performed By: #### L DO, CMPN #### [facility] (DEFAULT) [address] [place] [address]284 Calcium [Mass/Vol] 9.5 mg/dL Normal 8.6-10.5 [facility] Comment on above: Performed By: #### L DO, CMPN #### [facility] (DEFAULT) [address] [place] [address]91 Chloride [Moles/Vol] 98 mmol/L Normal 98-108 [facility] Comment on above: Performed By: #### L DO, CMPN #### [facility] (DEFAULT) [address] [place] [address] 11530 CO2 [Moles/Vol] 28 mmol/L Normal 21-31 [facility] Comment on above: Performed By: #### L DO, CMPN #### [facility] (DEFAULT) [address] [place] [address] 27219 Creatinine [Mass/Vol] 0.97 mg/dL Normal Male: 0.7-1.3, Female: 0.5-1.2 [facility] Comment on above: Performed By: #### L DO, CMPN #### [facility] (DEFAULT) [address] [place] [address] 49962 GFR/1.73 sq M.predicted among non-blacks MDRD (S/P/Bld) [Vol rate/Area] 86 mL/min/{1.73_m2} Normal >=60 [facility] Comment on above: Result Comment: Repo rted eGFR is based on the CKD-EPI 2021 equation using creatinine, age, and sex. Performed By: #### L DO, CMPN #### [facility] (DEFAULT) [address] [place] [address] 96310 GFR/1.73 sq M.predicted among non-blacks MDRD (S/P/Bld) [Vol rate/Area] 64 mL/min/{1.73_m2} Normal >=60 [facility] Comment on above: Result Comment: Repo rted eGFR is based on the CKD-EPI 2021 equation using creatinine, age, and sex. Performed By: #### L DO, CMPN #### [facility] (DEFAULT) [address] [place] [address] 12473 Glucose [Mass/Vol] 125 mg/dL High 70-99 [facility] Comment on above: Performed By: #### L DO, CMPN #### [facility] (DEFAULT) [address] [place] [address] 03999 Osmolality [Osmolality] 286 mosm/kg Normal 278-305 [facility] Comment on above: Performed By: #### L DO, CMPN #### [facility] (DEFAULT) [address] [place] [address] 50618 Potassium [Moles/Vol] 4.0 mmol/L Normal 3.5-5.0 [facility] Comment on above: Performed By: #### L DO, CMPN #### [facility] (DEFAULT) [address] [place] [address] 53271 Protein [Mass/Vol] 7.1 g/dL Normal 6.4-8.3 [facility] Comment on above: Performed By: #### L DO, CMPN #### [facility] (DEFAULT) [address] [place] [address] 13859 Sodium [Moles/Vol] 136 mmol/L Normal 135-145 [facility] Comment on above: Performed By: #### L DO, CMPN #### [facility] (DEFAULT) [address] [place] [address] 74404 Urea nitrogen [Mass/Vol] 9 mg/dL Normal 7-25 [facility] Comment on above: Performed By: #### L DO, CMPN #### [facility] (DEFAULT) [address] [place] [address] 83192 Urea nitrogen/Creatinine [Mass ratio] 9 mg/mg Normal [facility] Comment on above: Performed By: #### L DO, CMPN #### [facility] (DEFAULT) [address] [place] [address] 71005 LACTATE DEHYDROGENASEon 08-25 Interpretation and review of laboratory results Normal [facility] LDH Lactate to pyruvate reaction [Catalytic activity/Vol] 186 U/L Male: 100-190, Female: 100-190 [facility] LD Total 186 U/L Normal Male: 100-190, Female: 100-190 [facility] Comment on above: Performed By: #### L DO, CMPN #### [facility] (DEFAULT) [address] [place] [address] 61234 No Panel Informationon 09-19 [facility] XR SPINE LUMBAR W/ BENDING 6 [...] over S1 without evidence of instability. Normal [facility] CT CCTA HEART (AUTOMATIC DOOR MECHANIC READ)on 05-31-2024 CT CCTA HEART (AUTOMATIC DOOR MECHANIC READ) Cardiac Morphology CTA Post MARY LOU Occluder Patient Name: Elena Galeano Age: 64 y.o. Requesting Physician: Dr Christie Interpreting Counselor/Art Therapist:Naty Unger MD Primary Care Physician: Fernie Paredes [...] Image Quality: Good. No significant artifacts. Scanner: Event[employer] DLP: 241.03 mGy Radiation dose reduction was [...] TueMay 31, 2024 10:49:44 AM EDT Normal [facility] CT PULMONARY VEIN WITH RECON STRUCTIONS 3Don [...] contrast. CT pulmonary vein protocol was utilized. Counselor/Art Therapist will interpret the pulmonary vein portion of [...] to separate report for dedicated cardiac evaluation. [facility] Workstation ID: [id number] Dictated by: CLAUDIA GONZALES on TueMay 31, 2024 10:39:01 AM EDT Transcribed by: SEAMUS REARDON on TueMay 31, 2024 10:43:55 AM EDT Finalized by: CLAUDIA GONZALES on TueMay 31, 2024 10:35:55 PM EDT Normal [facility] Comment on above: Order Comment: Injur y/Trauma or Illness?:Illness/Other How long have you had these symptoms (acute/chronic)?:Acute Reason for exam?:MARY LOU assessment, s/p LAAO, Atrial fibrillation 6 month f/u, supplemental read Type of Exam?:Subsequent/Follow-up Additional signs and symptoms?:no BASIC METABOLIC PANELon 04-25 Anion gap [Moles/Vol] 18 mmol/L Normal 10-20 [facility] Comment on above: Order Comment: [facility] has implemented the eGFR calculation approach that does not have a coefficient for race that conforms to the NKF-ASN Task Force Recommendations. Performed By: #### 4 [id number] #### [facility] [address] [address] Ab Navarrete M.D. [id number] Calcium [Mass/Vol] 9.7 mg/dL Normal 8.4-10.2 [facility] Comment on above: Order Comment: [facility] has implemented the eGFR calculation approach that does not have a coefficient for race that conforms to the NKF-ASN Task Force Recommendations. Performed By: #### 4 6124 #### LAB [address] [address] Ab Navarrete M.D. [id number] Chloride [Moles/Vol] 98 mmol/L Normal 98-108 [facility] Comment on above: Order Comment: [facility] has implemented the eGFR calculation approach that does not have a coefficient for race that conforms to the NKF-ASN Task Force Recommendations. Performed By: #### 4 6124 #### [facility] [address] [address] Ab Navarrete M.D. [id number] Creatinine [Mass/Vol] 0.99 mg/dL Normal 0.60-1.10 [facility] Comment on above: Order Comment: [facility] has implemented the eGFR calculation approach that does not have a coefficient for race that conforms to the NKF-ASN Task Force Recommendations. Performed By: #### 4 6124 #### LAB [address] [address] Ab Navarrete M.D. [id number] EGFR 63 mL/min/1.73 m2 Normal >=60 [facility] Comment on above: Order Comment: [facility] has implemented the eGFR calculation approach that does not have a coefficient for race that conforms to the NKF-ASN Task Force Recommendations. Result Comment: Nay mated GFR was calculated using the 2020 CKD-EPI creatinine equation. Performed By: #### 4 6124 #### LAB [address] [address] Ab Navarrete M.D. [id number] Glucose [Mass/Vol] 110 mg/dL High 65-99 [facility] Comment on above: Order Comment: [facility] has implemented the eGFR calculation approach that does not have a coefficient for race that conforms to the NKF-ASN Task Force Recommendations. Performed By: #### 4 6124 #### LAB [address] [address] Ab Navarrete M.D. [id number] HCO3 (Bld) [Moles/Vol] 27 mmol/L Normal 21-32 [facility] Comment on above: Order Comment: [facility] has implemented the eGFR calculation approach that does not have a coefficient for race that conforms to the NKF-ASN Task Force Recommendations. Performed By: #### 4 6124 #### LAB [address] [address] Ab Navarrete M.D. [id number] Potassium [Moles/Vol] 4.1 mmol/L Normal 3.5-5.1 [facility] Comment on above: Order Comment: [facility] has implemented the eGFR calculation approach that does not have a coefficient for race that conforms to the NKF-ASN Task Force Recommendations. Performed By: #### 4 6124 #### LAB [address] [place], [place] [address] Ab Navarrete M.D. [id number] Sodium [Moles/Vol] 139 mmol/L Normal 135-145 [facility] Comment on above: Order Comment: [facility] has implemented the eGFR calculation approach that does not have a coefficient for race that conforms to the NKF-ASN Task Force Recommendations. Performed By: #### 4 6124 #### LAB [address] [address] Ab Navarrete M.D. [id number] Urea nitrogen [Mass/Vol] 16 mg/dL Normal 8-25 [facility] Comment on above: Order Comment: [facility] has implemented the eGFR calculation approach that does not have a coefficient for race that conforms to the NKF-ASN Task Force Recommendations. Performed By: #### 4 6124 #### LAB [address] [address] Ab Navarrete M.D. [id number] Urea nitrogen/Creatinine [Mass ratio] 16.2 mg/mg Normal 10.0-20.0 [facility] Comment on above: Order Comment: [facility] has implemented the eGFR calculation approach that does not have a coefficient for race that conforms to the NKF-ASN Task Force Recommendations. Performed By: #### 4 6124 #### LAB [address] [place], [place] [address] Ab Navarrete M.D. [id number] Basic metabolic 2000 panelon 05-22-2024 Anion gap [Moles/Vol] 18 mmol/L 10 - 20 mmol/L [facility] Calcium [Mass/Vol] 9.7 mg/dL 8.4 - 10. 2 mg/dL [facility] Chloride [Moles/Vol] 98 mmol/L 98 - 10 8 mmol/L [facility] Creatinine [Mass/Vol] 0.99 mg/dL 0.60 - 1.10 mg/dL [facility] GFR/1.73 sq M.predicted CKD-EPI (S/P/Bld) [Vol rate/Area] 63 - PINF [facility] Comment on above: Estimated GFR was ca lculated using the 2020 CKD-EPI creatinine equation. Glucose [Mass/Vol] 110 mg/dL High 65 - 99 mg/dL [facility] HCO3 [Moles/Vol] 27 mmol/L 21 - 32 mmol/L [facility] Interpretation and review of laboratory results Abnormal [facility] Potassium [Moles/Vol] 4.1 mmol/L 3.5 - 5.1 mmol/L [facility] Sodium [Moles/Vol] 139 mmol/L 135 - 145 mmol/L [facility] Urea nitrogen [Mass/Vol] 16 mg/dL 8 - 25 mg/dL [facility] Urea nitrogen/Creatinine [Mass ratio] 16.2 mg/mg 10.0 - 20.0 [facility] has implemented the eGFR calculation approach that does not have a coefficient for race that conforms to the NKF-ASN Task Force Recommendations. [facility] CBC WITH AUTO DIFFERENTIALon 05-22-2024 AUTO NRBC 0.0 % [facility] Comment on above: Performed By: #### L [id number] #### LAB [address] [address] Ab Navarrete M.D. [id number] AUTO NRBC ABS COUNT 0.00 K/mcL Normal 0.00-0.00 [facility] Comment on above: Performed By: #### L [id number] #### [facility] [address] [address] Ab Navarrete M.D. [id number] BASOPHILS ABSOLUTE COUNT 0.06 K/mcL Normal 0.00-0.30 [facility] Comment on above: Performed By: #### L [id number] #### LAB [address] [address] Ab Navarrete M.D. [id number] Basophils/100 WBC (Bld) 0.9 % Normal [facility] Comment on above: Performed By: #### L [id number] #### [facility] [address] [address] Ab Navarrete M.D. [id number] Eosinophils (Bld) [#/Vol] 0.06 10*3/uL Normal 0.00-0.50 [facility] Comment on above: Performed By: #### L [id number] #### LAB [address] [address] Ab Navarrete M.D. [id number] Eosinophils/100 WBC (Bld) 0.9 % Normal [facility] Comment on above: Performed By: #### L [id number] #### LAB [address] [address] Ab Navarrete M.D. [id number] Erythrocyte distribution width (RBC) [Ratio] 13.2 % Normal 11.6-14.8 [facility] Comment on above: Performed By: #### L [id number] #### LAB [address] [address] Ab Navarrete M.D. [id number] Hematocrit (Bld) [Volume fraction] 36.7 % Normal 36.0-46.0 [facility] Comment on above: Performed By: #### L [id number] #### LAB [address] [address] Ab Navarrete M.D. [id number] Hemoglobin (Bld) [Mass/Vol] 12.2 g/dL Normal 12.0-16.0 [facility] Comment on above: Performed By: #### L [id number] #### LAB [address] [address] Ab Navarrete M.D. [id number] IG ABSOLUTE 0.02 K/mcL Normal 0.00-0.30 [facility] Comment on above: Performed By: #### L [id number] #### LAB [address] [address] Ab Navarrete M.D. [id number] IG PERCENT 0.30 % Normal [facility] Comment on above: Result Comment: The IG parameter is the percentage of metamyelocytes, myelocytes and promyelocytes. An immature granulocyte count (IG) of 1% or more suggests the possibility of infection, an IG count of 3% is very likely related to an infection. Performed By: #### L [id number] #### LAB [address] [place] [address] Ab Navarrete M.D. [id number] Lymphocytes (Bld) [#/Vol] 2.59 10*3/uL Normal 0.90-4.00 [facility] Comment on above: Performed By: #### L [id number] #### LAB [address] [address] Ab Navarrete M.D. [id number] Lymphocytes/100 WBC (Bld) 36.9 % Normal [facility] Comment on above: Performed By: #### L [id number] #### LAB [address] [address] Ab Navarrete M.D. [id number] MCH (RBC) [Entitic mass] 32.2 pg Normal 26.0-34.0 [facility] Comment on above: Performed By: #### L [id number] #### LAB [address] [address] Ab Navarrete M.D. [id number] MCV (RBC) [Entitic vol] 96.8 fL Normal 80.0-100.0 [facility] Comment on above: Performed By: #### L [id number] #### LAB [address] [address] Ab Navarrete M.D. [id number] MEAN CORPUSCULAR HEMOGLOBIN CONC 33.2 g/dL Normal 31.0-37.0 [facility] Comment on above: Performed By: #### L [id number] #### LAB [address] [address] Ab Navarrete M.D. [id number] Monocytes (Bld) [#/Vol] 0.65 10*3/uL Normal 0.30-0.90 [facility] Comment on above: Performed By: #### L [id number] #### LAB [address] [address] Ab Navarrete M.D. [id number] Monocytes/100 WBC (Bld) 9.3 % Normal [facility] Comment on above: Performed By: #### L [id number] #### LAB [address] [address] Ab Navarrete M.D. [id number] NEUTROPHILS ABSOLUTE COUNT 3.63 K/mcL Normal 1.70-7.00 [facility] Comment on above: Performed By: #### L [id number] #### LAB [address] [address] Ab Navarrete M.D. [id number] Neutrophils/100 WBC (Bld) 51.7 % Normal [facility] Comment on above: Performed By: #### L [id number] #### LAB [address] [address] Ab Navarrete M.D. [id number] Platelet mean volume (Bld) [Entitic vol] 10.4 fL Normal 9.4-12.4 [facility] Comment on above: Performed By: #### L [id number] #### LAB [address] [address] Ab Navarrete M.D. [id number] Platelets (Bld) [#/Vol] 265 10*3/uL Normal 150-400 [facility] Comment on above: Performed By: #### L [id number] #### LAB [address] [address] Ab Navarrete M.D. [id number] RBC (Bld) [#/Vol] 3.79 10*6/uL Low 4.00-5.20 [facility] Comment on above: Performed By: #### L [id number] #### LAB [address] [address] Ab Navarrete M.D. [id number] WBC (Bld) [#/Vol] 7.01 10*3/uL Normal 4.50-11.00 [facility] Comment on above: Performed By: #### L [id number] #### LAB [address] [place] [address] Ab Navarrete M.D. [id number] LARGE JOINT/BURSA INJECTION AND/OR ASPIRATIONon 01-10-2024 Chelsea [...] fashion. The patient was prepped with Chloraprep. [facility] Radiology Study observation (narrative) [facility] [place] Unspecified body regionon 01-10-2024 Image Storage This order is to facilitate the storage of the image. [facility] Basic metabolic 2000 panelon 03-15-2024 Anion gap [Moles/Vol] 14 mmol/L 10 - 20 mmol/L [facility] Calcium [Mass/Vol] 9.4 mg/dL 8.4 - 10. 2 mg/dL [facility] Chloride [Moles/Vol] 99 mmol/L 98 - 10 8 mmol/L [facility] Creatinine [Mass/Vol] 0.84 mg/dL 0.60 - 1.20 mg/dL [facility] GFR/1.73 sq M.predicted CKD-EPI (S/P/Bld) [Vol rate/Area] 77 - PINF [facility] Comment on above: Estimated GFR was ca lculated using the 2020 CKD-EPI creatinine equation. Glucose [Mass/Vol] 113 mg/dL High 65 - 99 mg/dL [facility] H[facility]3 [Moles/Vol] 29 mmol/L 21 - 32 mmol/L [facility] Interpretation and review of laboratory results Abnormal [facility] Potassium [Moles/Vol] 4.3 mmol/L 3.5 - 5.1 mmol/L [facility] Sodium [Moles/Vol] 138 mmol/L 135 - 145 mmol/L [facility] Urea nitrogen [Mass/Vol] 13 mg/dL 8 - 25 mg/dL [facility] Urea nitrogen/Creatinine [Mass ratio] 15.5 mg/mg 10.0 - 20.0 [facility] has implemented the eGFR calculation approach that does not have a coefficient for race that conforms to the NKF-ASN Task Force Recommendations. [facility] ECHO RAYO INTRAOP TRANSCATHET ER PROCEDUREon 11-24-2023 ECHO RAYO INTRAOP TRANSCATHETER PROCEDURE Patient Info Name: ELENA GALEANO Age: 63 years : 1960 Gender: Female Ht: 165 cm Wt: 97 kg BSA: 2.15 m2 HR: 63 bpm BP: 119 / 78 mmHg Technical Quality: Good Exam Date: 11/24/2023 7:11 AM Patient Status: Outpatient Sales Order Processor: Tanya Santana RCDS Exam Type: ECHO RAYO INTRAOP TRANSCATHETER PROCEDURE Study Info Indications Z95.818 - WATCHMAN MARY LOU CLOSURE I48.91 - Unspecified atrial fibrillation [id number] BMI: 35.44 kg/m2 Summary 1. A complete intraprocedural two-dimensional, color flow and Doppler transesophageal study was performed in the invasive procedural suite. Three-dimensional imaging was performed. Esophageal intubation of the RAYO probe was performed by the food prep worker. All findings were discussed immediately with the procedural physicians. 2. Please refer to prior RAYO and/or TTE reports for complete baseline 2D and Doppler findings. 3. Left ventricular chamber dimension is normal. Normal LV systolic function, estimated ejection fraction of 55-60%. 4. Right ventricular chamber dimension is normal. Right ventricular systolic function is normal. 5. S/P procedure there is an iatrogenic ASD with foug-or-[id number] shunting. 6. Patient is status post left [...] the RAYO probe was performed by the food prep worker. All findings were discussed immediately with the [...] procedure there is an iatrogenic ASD with [id number] shunting. Atrial Appendage Patient is status post [...] Bobby MD on 11/24/2023 01:55 PM Normal [facility] ECHOCARDIOGRAM LIMITEDon ECHOCARDIOGRAM LIMITED Patient Info Name: ELENA GALEANO Age: 63 years : 1960 Gender: Female Ht: 165 cm Wt: 95 kg BSA: 2.13 m2 BP: 128 / 76 mmHg Technical Quality: Good Exam Date: 11/24/2023 1:47 PM Patient Status: Inpatient Sales Order Processor: Max, Tanya, BIMAL Exam Type: ECHOCARDIOGRAM LIMITED Study Info Indications I31.3 - Pericardial effusion (noninflammatory) - Re-assess pericardial effusion Referring Physician: NEGRITO Donis; [id number] BMI: 34.95 kg/m2 Summary 1. A Limited [...] Abhijit Bobby MD on 11/24/2023 02:23 PM [facility] XR CHEST AP/PA AND LATon XR CHEST [...] normal limits. IMPRESSION: No acute cardiopulmonary disease. [employer] Workstation ID: [id number] Dictated by: DEONDRE GARRIDO on TueNov 24, 2023 3:10:52 PM EST Transcribed by: MYRON GOMEZ on TueNov 24, 2023 3:21:53 PM EST Finalized by: DEONDRE GARRIDO on TueNov 24, 2023 3:25:27 PM EST Normal [facility] Comment on above: Order Comment: Injur y/Trauma or Illness?:Illness/Other How long have you had these symptoms (acute/chronic)?:Acute Reason for exam?:s/p LAAO with Watchman 24mm History of cancer?:n Surgeries, chemotherapy, or radiation?:n Type of Exam?:Initial Additional signs and symptoms?:. CT CCTA HEART (AUTOMATIC DOOR MECHANIC READ)on 11-18-2023 CT CCTA HEART (AUTOMATIC DOOR MECHANIC READ) Cardiac Morphology CTA Prior to MARY LOU Occluder Patient Name: Elena Galeano Age: 63 y.o. Requesting Physician: Dr Christie Interpreting Counselor/Art Therapist:Naty Unger MD Primary Care Physician: Fernie Paredes [...] Image Quality: Good. No significant artifacts. Scanner: [employer] DLP: 222.83 mGy Radiation dose reduction was [...] TueNov 18, 2023 10:12:56 AM EST Normal [facility] CT MARY LOU (LEFT ATRIAL APPENDAG E) [...] read. 2. Cardiac findings are reported separately. [employer] Workstation ID: [id number] Dictated by: PINKY WEAVER on TueNov 18, 2023 9:22:49 AM EST Transcribed by: MITALI FLORES on TueNov 18, 2023 9:40:25 AM EST Finalized by: PINKY WEAVER on TueNov 18, 2023 3:49:42 PM EST Normal [facility] Comment on above: Order Comment: Injur y/Trauma or Illness?:Illness/Other How long have you had these symptoms (acute/chronic)?:Chronic Reason for exam?:Afib, pre LAAO, supplemental read Type of Exam?:Subsequent/Follow-up Additional signs and symptoms?:. ECG 12 leadon 11-08-2023 Atrial Rate [facility] P [place] [facility] P-R Interval [facility] Q-T Interval [facility] Q-T Interval (corrected) [facility] QRS Duration [facility] QTC Calculation (Bezet) [facility] R [place] [facility] T [place] [facility] Ventricular Rate [facility] CT Abdomen and Pelvis W cont rast [...] exam. Please correlate with upper GI symptoms [facility] Radiology [facility]narrative[facility] Pelvis W cont rast IVOrdered By: Cameron Damico on 10-19-2023 [facility] Work Phone: LARGE JOINT/BURSA INJECTION AND/OR [...] fashion. The patient was prepped with Chloraprep. [facility] Radiology Study observation (narrative) [facility] US Unspecified body regionon 09-26-2023 Image Storage This order is to facilitate the storage of the image. [facility] CBC AND ELECTRONIC DIFFon Basophils (Bld) [#/Vol] 0.05 10*3/uL 0.00 - 0.15 K/uL [facility] Basophils/100 WBC (Bld) 0.6 % [facility] Differential cell count method Nom (Bld) Electronic Differential [facility] Eosinophils (Bld) [#/Vol] K/uL 0.00 - 0.42 K/uL [facility] Eosinophils/100 WBC (Bld) 0.1 % [facility] Erythrocyte distribution width (RBC) [Ratio] 12.9 % 10.8 - 14.9 % [facility] Hematocrit (Bld) [Volume fraction] 38.0 % 34.9 - 44.3 % [facility] Hemoglobin (Bld) [Mass/Vol] 12.8 g/dL 11.4 - 15.2 g/dL [facility] Immature granulocytes (Bld) [#/Vol] K/uL NINF - 0.08 K/uL [facility] Immature granulocytes/100 WBC (Bld) 0.1 % [facility] Interpretation and review of laboratory results Abnormal [facility] Lymphocytes (Bld) [#/Vol] 1.83 10*3/uL 1.16 - 3.51 K/uL [facility] Lymphocytes/100 WBC (Bld) 23.7 % [facility] MCH (RBC) [Entitic mass] 32.6 pg 25.9 - 33.9 pg [facility] MCHC (RBC) [Mass/Vol] 33.7 g/dL 31.4 - 35.9 g/dL [facility] MCV (RBC) [Entitic vol] 96.7 fL 79.6 - 97.7 fL [facility] Monocytes (Bld) [#/Vol] 1.12 10*3/uL High 0.22 - 0.87 K/uL [facility] Monocytes/100 WBC (Bld) 14.5 % [facility] Neutrophils (Bld) [#/Vol] 4.70 10*3/uL 1.64 - 7.28 K/uL [facility] Nucleated RBC/100 WBC (Bld) [Ratio] 0.0 % [facility] Platelet mean volume (Bld) [Entitic vol] 10.3 fL 8.5 - 12.2 fL [facility] Platelets (Bld) [#/Vol] 220 10*3/uL 150 - 393 K/uL [facility] RBC (Bld) [#/Vol] 3.93 10*6/uL [facility] Segmented neutrophils/100 WBC (Bld) 61.0 % [facility] WBC (Bld) [#/Vol] 7.72 10*3/uL 3.99 - 11. 19 K/uL [facility] COMPREHENSIVE METABOLIC PANE Ethan 09-21-2023 Albumin [Mass/Vol] 4.1 g/dL 3.5 - 5.0 g/dL [facility] ALP [Catalytic activity/Vol] 41 U/L 32 - 126 U/L [facility] ALT [Catalytic activity/Vol] 17 U/L 9 - 48 U/L [facility] Anion gap [Moles/Vol] 15 mmol/L 7 - 17 mmol/L [facility] AST [Catalytic activity/Vol] 23 U/L 10 - 39 U/L [facility] Bilirubin [Mass/Vol] 0.4 mg/dL NINF - 1.5 mg/dL [facility] Calcium [Mass/Vol] 10.0 mg/dL 8.6 - 10. 5 mg/dL [facility] Chloride [Moles/Vol] 96 mmol/L Low 98 - 10 8 mmol/L [facility] CO2 [Moles/Vol] 27 mmol/L 21 - 31 mmol/L [facility] Creatinine [Mass/Vol] 1.03 mg/dL 0.50 - 1.20 mg/dL [facility] eGFR, CKD-EPI, Female 60 - PINF [facility] Comment on above: Reported eGFR is bas ed on the CKD-EPI 2020 equation using creatinine, age, and sex. Glucose [Mass/Vol] 122 mg/dL High 70 - 99 mg/dL [facility] Interpretation and review of laboratory results Abnormal [facility] Osmolality Calc [Osmolality] 285 [facility] Potassium [Moles/Vol] 4.7 mmol/L 3.5 - 5.0 mmol/L [facility] Protein [Mass/Vol] 7.0 g/dL 6.4 - 8.3 g/dL [facility] Sodium [Moles/Vol] 133 mmol/L Low 135 - 145 mmol/L [facility] Urea nitrogen [Mass/Vol] 20 mg/dL 7 - 25 mg/dL [facility] Urea nitrogen/Creatinine [Mass ratio] 19 mg/mg [facility] LACTATE DEHYDROGENASEon 08-25 Interpretation and review of laboratory results Normal [facility] LDH Lactate to pyruvate reaction [Catalytic activity/Vol] 149 U/L 100 - 190 U/L [facility] No Panel Informationon 09-21 [facility] Basophil percentageOrdered B y: Monse Shipley on 08-29-2023 Chloride [Moles/Vol] 103 mmol/L 98-107 [facility] Glucose [Mass/Vol] 194 mg/dL 74-106 [facility] Comment on above: Fasting Glucose resu lt greater than or equal to 126 mg/dL suggests DIABETES MELLITUS per A.D.A. criteria. Potassium [Moles/Vol] 3.4 mmol/L 3.5-5.1 [facility] Sodium [Moles/Vol] 140 mmol/L 136-145 [facility] WBC (Bld) [#/Vol] 5.7 10*3/uL 4.4-11.0 [facility] Blood erythrocytes count (nu mber/volume)Ordered By: Monse Shipley on 08-29-2023 RBC (Bld) [#/Vol] 3.80 10*6/uL 4.2-5.4 [facility] Blood hemoglobin measurement (mass/volume)Ordered By: Monse Shipley on 08-29-2023 Hemoglobin (Bld) [Mass/Vol] 12.2 g/dL 12.0-15.0 [facility] Blood platelet mean volumeOr dered By: Monse Shipley on 08-29-2023 Platelet mean volume (Bld) [Entitic vol] 10.7 fL 6.2-12.0 [facility] Determination of erythrocyte mean corpuscular volume (MCV)Ordered By: Monse Shipley on 08-29-2023 MCV (RBC) [Entitic vol] 99.7 fL 81-99 [facility] Erythrocyte sedimentation ra teOrdered By: Monse Shipley on 08-29-2023 ESR (Bld) [Velocity] 17 mm/h 0-30 [facility] Hematocrit Auto (Bld) [Volum e fraction]Ordered By: Monse Shipley on 08-29-2023 Hematocrit (Bld) [Volume fraction] 37.9 % 37-47 [facility] Laboratory - Chemistry and C hemistry - challengeOrdered By: Monse Shipley on 08-29-2023 CO2 [Moles/Vol] 28.0 mmol/L 21.0-32.0 [facility] Urea nitrogen/Creatinine [Mass ratio] 17.2 mg/mg 10-20 [facility] Laboratory - Hematology and Cell countsOrdered By: Monse Shipley on 08-29-2023 Erythrocyte distribution width (RBC) [Entitic vol] 47.7 fL 35.1-43.9 [facility] Erythrocyte distribution width (RBC) [Ratio] 13.2 % 11.6-14.6 [facility] MCH (RBC) [Entitic mass] 32.1 pg 27.0-32.0 [facility] MCHC Auto (RBC) [Mass/Vol]Or dered By: Monse Shipley on 08-29-2023 MCHC (RBC) [Mass/Vol] 32.2 g/dL 32-36 [facility] No Panel InformationOrdered By: Monse Shipley on 08-29-2023 Estimated GFR (MDRD) Amer 72 mL/min >60 [facility] Comment on above: GFR Calc Estimated GFR (MDRD) Non-Af Amer 60 mL/min >60 [facility] Comment on above: Non- GFR Calc Platelets bldOrdered By: Laura Shipley on 08-29-2023 Platelets (Bld) [#/Vol] 194 10*3/uL 150-450 [facility] Serum or plasma C reactive p rotein measurement (mass/volume)Ordered By: Monse Shipley on 08-29-2023 CRP [Mass/Vol] 9.20 mg/L 0.0-3.0 [facility] Comment on above: C-Reactive Protein ( CRP) provides useful information for thediagnosis, therapy and monitoring of inflammatory processesand associated diseases. For the evaluation of Relative Riskfor Cardiovascular Disease, a High Sensitivity CRP (HSCRP)should be ordered. Serum or plasma calcium karena urement (mass/volume)Ordered By: Monse Shipley on 08-29-2023 Calcium [Mass/Vol] 9.0 mg/dL 8.5-10.1 [facility] Serum or plasma creatinine m easurement (mass/volume)Ordered By: Monse Shipley on 08-29-2023 Creatinine [Mass/Vol] 0.99 mg/dL 0.55-1.02 [facility] Comment on above: The validity of the calculated GFR & GFRAA in patients over 70 years has not been determined. Clinical correlation is essential. Serum or plasma urea nitroge n measurement (mass/volume)Ordered By: Monse Shipley on 08-29-2023 Urea nitrogen [Mass/Vol] 17 mg/dL 7-18 [facility] Thin prep Papanicolaou smear with manual screeningOrdered By: Monse Shipley on 08-29-2023 Thin prep Papanicolaou smear with manual screening 9 5-15 [facility] Basophil percentageOrdered B y: Monse Shipley on 08-25-2023 Bilirubin [Mass/Vol] 0.40 mg/dL 0.20-1.00 [facility] Comment on above: For patients on eltr ombopag therapy, use of Dimension [place] TBIL is not recommended. Chloride [Moles/Vol] 103 mmol/L 98-107 [facility] Glucose [Mass/Vol] 119 mg/dL 74-106 [facility] Comment on above: Fasting Glucose resu lt from 100 to 125 mg/dL suggests IMPAIRED HOMEOSTASIS per A.D.A. criteria. Potassium [Moles/Vol] 4.3 mmol/L 3.5-5.1 [facility] Protein [Mass/Vol] 7.1 g/dL 6.4-8.2 [facility] Sodium [Moles/Vol] 137 mmol/L 136-145 [facility] WBC (Bld) [#/Vol] 6.2 10*3/uL 4.4-11.0 [facility] Blood erythrocytes count (nu mber/volume)Ordered By: Monse Shipley on 08-25-2023 RBC (Bld) [#/Vol] 3.84 10*6/uL 4.2-5.4 [facility] Blood hemoglobin measurement (mass/volume)Ordered By: Monse Shipley on 08-25-2023 Hemoglobin (Bld) [Mass/Vol] 12.4 g/dL 12.0-15.0 [facility] Blood platelet mean volumeOr dered By: Monse Shipley on 08-25-2023 Platelet mean volume (Bld) [Entitic vol] 10.6 fL 6.2-12.0 [facility] Determination of erythrocyte mean corpuscular volume (MCV)Ordered By: Monse Shipley on 08-25-2023 MCV (RBC) [Entitic vol] 97.7 fL 81-99 [facility] Hematocrit Auto (Bld) [Volum e fraction]Ordered By: Monse Shipley on 08-25-2023 Hematocrit (Bld) [Volume fraction] 37.5 % 37-47 [facility] Laboratory - Chemistry and C hemistry - challengeOrdered By: Monse Shipley on 08-25-2023 ALP [Catalytic activity/Vol] 55 U/L 45-117 [facility] ALT [Catalytic activity/Vol] 29 U/L 13-56 [facility] CO2 [Moles/Vol] 27.0 mmol/L 21.0-32.0 [facility] Globulin (S) [Mass/Vol] 3.7 g/dL 2.2-4.2 [facility] Urea nitrogen/Creatinine [Mass ratio] 14.0 mg/mg 10-20 [facility] Laboratory - Hematology and Cell countsOrdered By: Monse Shipley on 08-25-2023 Erythrocyte distribution width (RBC) [Entitic vol] 46.0 fL 35.1-43.9 [facility] Erythrocyte distribution width (RBC) [Ratio] 12.9 % 11.6-14.6 [facility] MCH (RBC) [Entitic mass] 32.3 pg 27.0-32.0 [facility] MCHC Auto (RBC) [Mass/Vol]Or dered By: Monse Shipley on 08-25-2023 MCHC (RBC) [Mass/Vol] 33.1 g/dL 32-36 [facility] No Panel InformationOrdered By: Monse Shipley on 08-25-2023 Estimated GFR (MDRD) Amer 71 mL/min >60 [facility] Comment on above: GFR Calc Estimated GFR (MDRD) Non-Af Amer 59 mL/min >60 [facility] Comment on above: Non- GFR Calc Platelets bldOrdered By: Laura Shipley on 08-25-2023 Platelets (Bld) [#/Vol] 228 10*3/uL 150-450 [facility] Serum or plasma C reactive p rotein measurement (mass/volume)Ordered By: Monse Shipley on 08-25-2023 CRP [Mass/Vol] 8.67 mg/L 0.0-3.0 [facility] Comment on above: C-Reactive Protein ( CRP) provides useful information for thediagnosis, therapy and monitoring of inflammatory processesand associated diseases. For the evaluation of Relative Riskfor Cardiovascular Disease, a High Sensitivity CRP (HSCRP)should be ordered. Serum or plasma albumin karena urement (mass/volume)Ordered By: Monse Shipley on 08-25-2023 Albumin [Mass/Vol] 3.4 g/dL 3.2-5.0 [facility] Serum or plasma albumin/glob ulin mass ratioOrdered By: Monse Shipley on 08-25-2023 Albumin/Globulin [Mass ratio] 0.9 {ratio} 0.9-2.4 [facility] Serum or plasma calcium karena urement (mass/volume)Ordered By: Monse Shipley on 08-25-2023 Calcium [Mass/Vol] 9.1 mg/dL 8.5-10.1 [facility] Serum or plasma creatinine m easurement (mass/volume)Ordered By: Monse Shipley on 08-25-2023 Creatinine [Mass/Vol] 1.00 mg/dL 0.55-1.02 [facility] Comment on above: The validity of the calculated GFR & GFRAA in patients over 70 years has not been determined. Clinical correlation is essential. Serum or plasma urea nitroge n measurement (mass/volume)Ordered By: Monse Shipley on 08-25-2023 Urea nitrogen [Mass/Vol] 14 mg/dL 7-18 [facility] Thin prep Papanicolaou smear with manual screeningOrdered By: Monse Shipley on 08-25-2023 Thin prep Papanicolaou smear with manual screening 20 U/L 15-37 [facility] Thin prep Papanicolaou smear with manual screening 7 5-15 [facility] Basophil percentageOrdered B y: Monse Shipley on 08-18-2023 Bilirubin [Mass/Vol] 0.30 mg/dL 0.20-1.00 [facility] Comment on above: For patients on eltr ombopag therapy, use of Dim[place] TBIL is not recommended. Chloride [Moles/Vol] 105 mmol/L 98-107 [facility] Glucose [Mass/Vol] 111 mg/dL 74-106 [facility] Comment on above: Fasting Glucose resu lt from 100 to 125 mg/dL suggests IMPAIRED HOMEOSTASIS per A.D.A. criteria. Potassium [Moles/Vol] 4.1 mmol/L 3.5-5.1 [facility] Protein [Mass/Vol] 6.7 g/dL 6.4-8.2 [facility] Sodium [Moles/Vol] 139 mmol/L 136-145 [facility] WBC (Bld) [#/Vol] 6.0 10*3/uL 4.4-11.0 [facility] Blood erythrocytes count (nu mber/volume)Ordered By: Monse Shipley on 08-18-2023 RBC (Bld) [#/Vol] 3.67 10*6/uL 4.2-5.4 [facility] Blood hemoglobin measurement (mass/volume)Ordered By: Monse Shipley on 08-18-2023 Hemoglobin (Bld) [Mass/Vol] 11.7 g/dL 12.0-15.0 [facility] Blood platelet mean volumeOr dered By: Monse Shipley on 08-18-2023 Platelet mean volume (Bld) [Entitic vol] 10.4 fL 6.2-12.0 [facility] CBC-Complete Blood Cnt No Di ffon 08-18-2023 Erythrocyte distribution width (RBC) [Ratio] 13.0 % Normal 11.6-14.6 [facility] Comment on above: Performed By: #### L 500.4050, L100.0500, [id number] #### [facility] [address] [place], [address] Hematocrit (Bld) [Volume fraction] 36.3 % Low 37-47 [facility] Comment on above: Performed By: #### L [id number], L100.0500, [id number] #### [facility] [address] [place], [address] Hemoglobin (Bld) [Mass/Vol] 11.7 g/dL Low 12.0-15.0 [facility] Comment on above: Performed By: #### L [id number], L100.0500, [id number] #### [facility] [address] [place], [address] MCH (RBC) [Entitic mass] 31.9 pg Normal 27.0-32.0 [facility] Comment on above: Performed By: #### L [id number], L100.0500, [id number] #### [facility] [address] [place], [address] MCHC (RBC) [Mass/Vol] 32.2 g/dL Normal 32-36 [facility] Comment on above: Performed By: #### L [id number], L100.0500, [id number] #### [facility] [address] [place], [address] MCV (RBC) [Entitic vol] 98.9 fL Normal 81-99 [facility] Comment on above: Performed By: #### L [id number], L100.0500, [id number] #### [facility] [address] [place], [address] Platelet mean volume (Bld) [Entitic vol] 10.4 fL Normal 6.2-12.0 [facility] Comment on above: Performed By: #### L [id number], L100.0500, [id number] #### [facility] [address] [place], [address] Platelets (Bld) [#/Vol] 314 10*3/uL Normal 150-450 [facility] Comment on above: Performed By: #### L [id number], L100.0500, [id number] #### [facility] [address] [place], [address] RBC (Bld) [#/Vol] 3.67 10*6/uL Low 4.2-5.4 [facility] Comment on above: Performed By: #### L 500.4050, L100.0500, [id number] #### [facility] [address] [place], [address] RDW SD 46.1 fl High 35.1-43.9 [facility] Comment on above: Performed By: #### L 500.4050, L100.0500, [id number] #### [facility] [address] [place], [address] WBC (Bld) [#/Vol] 6.0 10*3/uL Normal 4.4-11.0 [facility] Comment on above: Performed By: #### L [id number], L100.0500, [id number] #### [facility] [address] [place], [address] CRPon 08-18-2023 C-REACTIVE PROT 15.50 mg/L High 0.0-3.0 [facility] Comment on above: Result Comment: C-Re active Protein (CRP) provides useful information for the diagnosis, therapy and monitoring of inflammatory processes and associated diseases. For the evaluation of Relative Risk for Cardiovascular Disease, a High Sensitivity CRP (HSCRP) should be ordered. Performed By: #### L 500.4050, L100.0500, [id number] #### [facility] [address] [place], [address] Comprehensive Metabolic Prof ilon 08-18-2023 Albumin [Mass/Vol] 3.1 g/dL Low 3.2-5.0 [facility] Comment on above: Performed By: #### L 500.4050, L100.0500, [id number] #### [facility] [address] [place], [address] Albumin/Globulin [Mass ratio] 0.9 {ratio} Normal 0.9-2.4 [facility] Comment on above: Performed By: #### L 500.4050, L100.0500, [id number] #### [facility] [address] [place], [address] ALK P 55 U/L Normal 45-117 [facility] Comment on above: Performed By: #### L 500.4050, L100.0500, [id number] #### [facility] [address] [place], [address] ALT [Catalytic activity/Vol] 27 U/L Normal 13-56 [facility] Comment on above: Performed By: #### L 500.4050, L100.0500, [id number] #### [facility] [address] [place], [address] AST [Catalytic activity/Vol] 17 U/L Normal 15-37 [facility] Comment on above: Performed By: #### L 500.4050, L100.0500, [id number] #### [facility] [address] [place], [address] Bilirubin [Mass/Vol] 0.30 mg/dL Normal 0.20-1.00 [facility] Comment on above: Result Comment: For patients on eltrombopag therapy, use of Dim[place] TBIL is not recommended. Performed By: #### L 500.4050, L100.0500, [id number] #### [facility] [address] [place], [address] BUN/CRE 18.1 RATIO Normal 10-20 [facility] Comment on above: Performed By: #### L 500.4050, L100.0500, [id number] #### [facility] [address] [place], [address] CA,Total 9.0 mg/dL Normal 8.5-10.1 [facility] Comment on above: Performed By: #### L 500.4050, L100.0500, [id number] #### [facility] [address] [place], [address] Chloride [Moles/Vol] 105 mmol/L Normal 98-107 [facility] Comment on above: Performed By: #### L 500.4050, L100.0500, [id number] #### [facility] [address] [place], [address] CO2 [Moles/Vol] 28.0 mmol/L Normal 21.0-32.0 [facility] Comment on above: Performed By: #### L 500.4050, L100.0500, [id number] #### [facility] [address] [place], [address] Creatinine [Mass/Vol] 0.94 mg/dL Normal 0.55-1.02 [facility] Comment on above: Result Comment: The validity of the calculated GFR GFRAA in patients over 70 years has not been determined. Clinical correlation is essential. Performed By: #### L 500.4050, L100.0500, [id number] #### [facility] [address] [place], [address] ECRCL 53.69 ml/min Normal [facility] Comment on above: Performed By: #### L 500.4050, L100.0500, [id number] #### [facility] [address] [place], [address] EST GFR - AA 77 mL/min Normal >60 [facility] Comment on above: Result Comment: Afri can [place] GFR Calc Performed By: #### L 500.4050, L100.0500, [id number] #### [facility] [address] [place], [address] GAP 6 Normal 5-15 [facility] Comment on above: Performed By: #### L 500.4050, L100.0500, [id number] #### [facility] [address] [place], [address] GFR/1.73 sq M.predicted among non-blacks MDRD (S/P/Bld) [Vol rate/Area] 63 mL/min/{1.73_m2} Normal >60 [facility] Comment on above: Result Comment: Non- GFR Calc Performed By: #### L 500.4050, L100.0500, [id number] #### [facility] [address] [place], [address] Globulin (S) [Mass/Vol] 3.6 g/dL Normal 2.2-4.2 [facility] Comment on above: Performed By: #### L 500.4050, L100.0500, [id number] #### [facility] [address] [place], [address] Glucose [Mass/Vol] 111 mg/dL High 74-106 [facility] Comment on above: Result Comment: Fast ing Glucose result from 100 to 125 mg/dL suggests IMPAIRED HOMEOSTASIS per A.D.A. criteria. Performed By: #### L 500.4050, L100.0500, [id number] #### [facility] [address] [place], [address] Potassium [Moles/Vol] 4.1 mmol/L Normal 3.5-5.1 [facility] Comment on above: Performed By: #### L 500.4050, L100.0500, [id number] #### [facility] [address] [place], [address] Sodium [Moles/Vol] 139 mmol/L Normal 136-145 [facility] Comment on above: Performed By: #### L 500.4050, L100.0500, [id number] #### [facility] [address] [place], [address] T PROT 6.7 g/dL Normal 6.4-8.2 [facility] Comment on above: Performed By: #### L 500.4050, L100.0500, [id number] #### [facility] [address] [place], [place], [id number] Urea nitrogen [Mass/Vol] 17 mg/dL Normal 7-18 [facility] Comment on above: Performed By: #### L 500.4050, L100.0500, [id number] #### [facility] [address] [place], [place], [id number] Determination of erythrocyte mean corpuscular volume (MCV)Ordered By: Monse Shipley on 08-18-2023 MCV (RBC) [Entitic vol] 98.9 fL 81-99 [facility] Hematocrit Auto (Bld) [Volum e fraction]Ordered By: Monse Shipley on 08-18-2023 Hematocrit (Bld) [Volume fraction] 36.3 % 37-47 [facility] - Chemistry and C hemistry - challengeOrdered By: Monse Shipley on 08-18-2023 ALP [Catalytic activity/Vol] 55 U/L 45-117 [facility] ALT [Catalytic activity/Vol] 27 U/L 13-56 [facility] CO2 [Moles/Vol] 28.0 mmol/L 21.0-32.0 [facility] Globulin (S) [Mass/Vol] 3.6 g/dL 2.2-4.2 [facility] Urea nitrogen/Creatinine [Mass ratio] 18.1 mg/mg 10-20 [facility] - Hematology and Cell countsOrdered By: Monse Shipley on 08-18-2023 Erythrocyte distribution width (RBC) [Entitic vol] 46.1 fL 35.1-43.9 [facility] Erythrocyte distribution width (RBC) [Ratio] 13.0 % 11.6-14.6 [facility] MCH (RBC) [Entitic mass] 31.9 pg 27.0-32.0 [facility] MCHC Auto (RBC) [Mass/Vol]Or dered By: Monse Shipley on 08-18-2023 MCHC (RBC) [Mass/Vol] 32.2 g/dL 32-36 [facility] No Panel InformationOrdered By: Monse Shipley on 08-18-2023 Estimated Creatinine Clearance Calc 53.69 ml/min [facility] [facility] Est[facility] GFR (MDRD) Amer 77 mL/min >60 [facility] Comment on above: GFR Calc Estimated GFR (MDRD) Non-Af Amer 63 mL/min >60 [facility] Comment on above: Non- GFR Calc Platelets bldOrdered By: Laura Shipley on 08-18-2023 Platelets (Bld) [#/Vol] 314 10*3/uL 150-450 [facility] Serum or plasma C reactive p rotein measurement (mass/volume)Ordered By: Monse Shipley on 08-18-2023 CRP [Mass/Vol] 15.50 mg/L 0.0-3.0 [facility] Comment on above: C-Reactive Protein ( CRP) provides useful information for thediagnosis, therapy and monitoring of inflammatory processesand associated diseases. For the evaluation of Relative Riskfor Cardiovascular Disease, a High Sensitivity CRP (HSCRP)should be ordered. Serum or plasma albumin karena urement (mass/volume)Ordered By: Monse Shipley on 08-18-2023 Albumin [Mass/Vol] 3.1 g/dL 3.2-5.0 [facility] Serum or plasma albumin/glob ulin mass ratioOrdered By: Monse Shipley on 08-18-2023 Albumin/Globulin [Mass ratio] 0.9 {ratio} 0.9-2.4 [facility] Serum or plasma calcium karena urement (mass/volume)Ordered By: Monse Shipley on 08-18-2023 Calcium [Mass/Vol] 9.0 mg/dL 8.5-10.1 [facility] Serum or plasma creatinine m easurement (mass/volume)Ordered By: Monse Shipley on 08-18-2023 Creatinine [Mass/Vol] 0.94 mg/dL 0.55-1.02 [facility] Comment on above: The validity of the calculated GFR & GFRAA in patients over 70 years has not been determined. Clinical correlation is essential. Serum or plasma urea nitroge n measurement (mass/volume)Ordered By: Monse Shipley on 08-18-2023 Urea nitrogen [Mass/Vol] 17 mg/dL 7-18 [facility] Thin prep Papanicolaou smear with manual screeningOrdered By: Monse Shipley on 08-18-2023 Thin prep Papanicolaou smear with manual screening 17 U/L 15-37 [facility] Thin prep Papanicolaou smear with manual screening 6 5-15 [facility] Basophil percentageOrdered B y: Monse Shipley on 08-11-2023 Bilirubin [Mass/Vol] 0.30 mg/dL 0.20-1.00 [facility] Comment on above: For patients on eltr ombopag therapy, use of Dimension [place] TBIL is not recommended. Chloride [Moles/Vol] 106 mmol/L 98-107 [facility] Glucose [Mass/Vol] 101 mg/dL 74-106 [facility] Comment on above: Fasting Glucose resu lt from 100 to 125 mg/dL suggests IMPAIRED HOMEOSTASIS per A.D.A. criteria. Potassium [Moles/Vol] 4.2 mmol/L 3.5-5.1 [facility] Protein [Mass/Vol] 6.9 g/dL 6.4-8.2 [facility] Sodium [Moles/Vol] 139 mmol/L 136-145 [facility] WBC (Bld) [#/Vol] 6.6 10*3/uL 4.4-11.0 [facility] Blood erythrocytes count (nu mber/volume)Ordered By: Monse Shipley on 08-11-2023 RBC (Bld) [#/Vol] 3.65 10*6/uL 4.2-5.4 [facility] Blood hemoglobin measurement (mass/volume)Ordered By: Monse Shipley on 08-11-2023 Hemoglobin (Bld) [Mass/Vol] 12.0 g/dL 12.0-15.0 [facility] Blood platelet mean volumeOr dered By: Monse Shipley on 08-11-2023 Platelet mean volume (Bld) [Entitic vol] 10.1 fL 6.2-12.0 [facility] CBC-Complete Blood Cnt No Di ffon 08-11-2023 Erythrocyte distribution width (RBC) [Ratio] 13.0 % Normal 11.6-14.6 [facility] Comment on above: Performed By: #### L 100.0500, L500.4050, L501.6710 #### [facility] [address] [place], [address] Hematocrit (Bld) [Volume fraction] 36.5 % Low 37-47 [facility] Comment on above: Performed By: #### L 100.0500, L500.4050, L501.6710 #### [facility] [address] [place], [address] Hemoglobin (Bld) [Mass/Vol] 12.0 g/dL Normal 12.0-15.0 [facility] Comment on above: Performed By: #### L 100.0500, L500.4050, L501.6710 #### [facility] [address] [place], [address] MCH (RBC) [Entitic mass] 32.9 pg High 27.0-32.0 [facility] Comment on above: Performed By: #### L 100.0500, L500.4050, L501.6710 #### [facility] [address] [place], [address] MCHC (RBC) [Mass/Vol] 32.9 g/dL Normal 32-36 [facility] Comment on above: Performed By: #### L 100.0500, L500.4050, [id number] #### [facility] [address] [place], [address] MCV (RBC) [Entitic vol] 100.0 fL High 81-99 [facility] Comment on above: Performed By: #### L 100.0500, L500.4050, L501.6710 #### [facility] [address] [place], [address] Platelet mean volume (Bld) [Entitic vol] 10.1 fL Normal 6.2-12.0 [facility] Comment on above: Performed By: #### L 100.0500, L500.4050, L501.6710 #### [facility] [address] [place], [address] Platelets (Bld) [#/Vol] 240 10*3/uL Normal 150-450 [facility] Comment on above: Performed By: #### L 100.0500, L500.4050, L501.6710 #### [facility] [address] [place], [address] RBC (Bld) [#/Vol] 3.65 10*6/uL Low 4.2-5.4 [facility] Comment on above: Performed By: #### L 100.0500, L500.4050, L501.6710 #### [facility] [address] [place], [address] RDW SD 47.1 fl High 35.1-43.9 [facility] Comment on above: Performed By: #### L 100.0500, L500.4050, L501.6710 #### [facility] [address] [place], [address] WBC (Bld) [#/Vol] 6.6 10*3/uL Normal 4.4-11.0 [facility] Comment on above: Performed By: #### L 100.0500, L500.4050, L501.6710 #### [facility] [address] [place], [address] CRPon 08-11-2023 C-REACTIVE PROT 7.19 mg/L High 0.0-3.0 [facility] Comment on above: Result Comment: C-Re active Protein (CRP) provides useful information for the diagnosis, therapy and monitoring of inflammatory processes and associated diseases. For the evaluation of Relative Risk for Cardiovascular Disease, a High Sensitivity CRP (HSCRP) should be ordered. Performed By: #### L 100.0500, L500.4050, L501.6710 #### [facility] [address] [place], [address] Comprehensive Metabolic Prof ilon 08-11-2023 Albumin [Mass/Vol] 3.3 g/dL Normal 3.2-5.0 [facility] Comment on above: Performed By: #### L 100.0500, L500.4050, L501.6710 #### [facility] [address] [place], [address] Albumin/Globulin [Mass ratio] 0.9 {ratio} Normal 0.9-2.4 [facility] Comment on above: Performed By: #### L 100.0500, L500.4050, L501.6710 #### [facility] [address] [place], [address] ALK P 50 U/L Normal 45-117 [facility] Comment on above: Performed By: #### L 100.0500, L500.4050, L501.6710 #### [facility] [address] [place], [address] ALT [Catalytic activity/Vol] 25 U/L Normal 13-56 [facility] Comment on above: Performed By: #### L 100.0500, L500.4050, L501.6710 #### [facility] [address] [place], [address] AST [Catalytic activity/Vol] 14 U/L Low 15-37 [facility] Comment on above: Performed By: #### L 100.0500, L500.4050, L501.6710 #### [facility] [address] [place], [address] Bilirubin [Mass/Vol] 0.30 mg/dL Normal 0.20-1.00 [facility] Comment on above: Result Comment: For patients on eltrombopag therapy, use of Dim[place] TBIL is not recommended. Performed By: #### L 100.0500, L500.4050, L501.6710 #### [facility] [address] [place], [address] BUN/CRE 19.5 RATIO Normal 10-20 [facility] Comment on above: Performed By: #### L 100.0500, L500.4050, L501.6710 #### [facility] [address] [place], [address] CA,Total 8.8 mg/dL Normal 8.5-10.1 [facility] Comment on above: Performed By: #### L 100.0500, L500.4050, L501.6710 #### [facility] [address] [place], [address] Chloride [Moles/Vol] 106 mmol/L Normal 98-107 [facility] Comment on above: Performed By: #### L 100.0500, L500.4050, L501.6710 #### [facility] [address] [place], [address] CO2 [Moles/Vol] 27.0 mmol/L Normal 21.0-32.0 [facility] Comment on above: Performed By: #### L 100.0500, L500.4050, L501.6710 #### [facility] [address] [place], [address] Creatinine [Mass/Vol] 0.97 mg/dL Normal 0.55-1.02 [facility] Comment on above: Result Comment: The validity of the calculated GFR GFRAA in patients over 70 years has not been determined. Clinical correlation is essential. Performed By: #### L 100.0500, L500.4050, L501.6710 #### [facility] [address] [place], [address] ECRCL 52.03 ml/min Normal [facility] Comment on above: Performed By: #### L 100.0500, L500.4050, L501.6710 #### [facility] [address] [place], [address] EST GFR - AA 74 mL/min Normal >60 [facility] Comment on above: Result Comment: Afri can [place] GFR Calc Performed By: #### L 100.0500, L500.4050, L501.6710 #### [facility] [address] [place], [address] GAP 6 Normal 5-15 [facility] Comment on above: Performed By: #### L 100.0500, L500.4050, L501.6710 #### [facility] [address] [place], [address] GFR/1.73 sq M.predicted among non-blacks MDRD (S/P/Bld) [Vol rate/Area] 61 mL/min/{1.73_m2} Normal >60 [facility] Comment on above: Result Comment: Non- GFR Calc Performed By: #### L 100.0500, L500.4050, L501.6710 #### [facility] [address] [place], [address] Globulin (S) [Mass/Vol] 3.6 g/dL Normal 2.2-4.2 [facility] Comment on above: Performed By: #### L 100.0500, L500.4050, L501.6710 #### [facility] [address] [place], [address] Glucose [Mass/Vol] 101 mg/dL Normal 74-106 [facility] Comment on above: Result Comment: Fast ing Glucose result from 100 to 125 mg/dL suggests IMPAIRED HOMEOSTASIS per A.D.A. criteria. Performed By: #### L 100.0500, L500.4050, L501.6710 #### [facility] [address] [place], [address] Potassium [Moles/Vol] 4.2 mmol/L Normal 3.5-5.1 [facility] Comment on above: Performed By: #### L 100.0500, L500.4050, L501.6710 #### [facility] [address] [place], [address] Sodium [Moles/Vol] 139 mmol/L Normal 136-145 [facility] Comment on above: Performed By: #### L 100.0500, L500.4050, L501.6710 #### [facility] [address] [place], [address] T PROT 6.9 g/dL Normal 6.4-8.2 [facility] Comment on above: Performed By: #### L 100.0500, L500.4050, L501.6710 #### [facility] [address] [place], [address] Urea nitrogen [Mass/Vol] 19 mg/dL High 7-18 [facility] Comment on above: Performed By: #### L 100.0500, L500.4050, L501.6710 #### [facility] [address] [place], [address] Determination of erythrocyte mean corpuscular volume (MCV)Ordered By: Monse Shipley on 08-11-2023 MCV (RBC) [Entitic vol] 100.0 fL 81-99 [facility] Hematocrit Auto (Bld) [Volum e fraction]Ordered By: Monse Shipley on 08-11-2023 Hematocrit (Bld) [Volume fraction] 36.5 % 37-47 [facility] INCISION AND DRAINAGEon 07-24 Jone Lyons PM [...] tendon like substance came out. Culture taken [facility] Jone Lyons PM - 08/11/2023 1:10 PM [...] 2.5 mg 2 tabs, BID- Lot # [id number] - 08.15 buPROPion (Wellbutrin XL) 300 MG [...] patient denies CLL (chronic lymphocytic leukemia) 2011 [id number] on 09-30-2020 Depression Diffuse non-Hodgkin's lymphoma chemotherapy [...] Laterality: Left; Surgeon: Isreal Sigala MD; Location: [facility] OR EGD W/ DILATION BALLOON N/A 12/01/2021 Laterality: N (more content not included)... [facility] INCISION AND DRAINAGEOrdered By: Dragan Candelaria on 08-11-2023 [facility] Radiology Study observation (narrative) [facility] Laboratory - Chemistry and C hemistry - challengeOrdered By: Monse Shipley on 08-11-2023 ALP [Catalytic activity/Vol] 50 U/L 45-117 [facility] ALT [Catalytic activity/Vol] 25 U/L 13-56 [facility] CO2 [Moles/Vol] 27.0 mmol/L 21.0-32.0 [facility] Globulin (S) [Mass/Vol] 3.6 g/dL 2.2-4.2 [facility] Urea nitrogen/Creatinine [Mass ratio] 19.5 mg/mg 10-20 [facility] Laboratory - Hematology and Cell countsOrdered By: Monse Shipley on 08-11-2023 Erythrocyte distribution width (RBC) [Entitic vol] 47.1 fL 35.1-43.9 [facility] Erythrocyte distribution width (RBC) [Ratio] 13.0 % 11.6-14.6 [facility] MCH (RBC) [Entitic mass] 32.9 pg 27.0-32.0 [facility] MCHC Auto (RBC) [Mass/Vol]Or dered By: Monse Shipley on 08-11-2023 MCHC (RBC) [Mass/Vol] 32.9 g/dL 32-36 [facility] No Panel InformationOrdered By: Monse Shipley on 08-11-2023 Estimated Creatinine Clearance Calc 52.03 ml/min [facility] Estimated GFR (MDRD) Amer 74 mL/min >60 [facility] Comment on above: GFR Calc Estimated GFR (MDRD) Non-Af Amer 61 mL/min >60 [facility] Comment on above: Non- GFR Calc Platelets bldOrdered By: Laura Shipley on 08-11-2023 Platelets (Bld) [#/Vol] 240 10*3/uL 150-450 [facility] Serum or plasma C reactive p rotein measurement (mass/volume)Ordered By: Monse Shipley on 08-11-2023 CRP [Mass/Vol] 7.19 mg/L 0.0-3.0 [facility] Comment on above: C-Reactive Protein ( CRP) provides useful information for thediagnosis, therapy and monitoring of inflammatory processesand associated diseases. For the evaluation of Relative Riskfor Cardiovascular Disease, a High Sensitivity CRP (HSCRP)should be ordered. Serum or plasma albumin karena urement (mass/volume)Ordered By: Monse Shipley on 08-11-2023 Albumin [Mass/Vol] 3.3 g/dL 3.2-5.0 [facility] Serum or plasma albumin/glob ulin mass ratioOrdered By: Monse Shipley on 08-11-2023 Albumin/Globulin [Mass ratio] 0.9 {ratio} 0.9-2.4 [facility] Serum or plasma calcium karena urement (mass/volume)Ordered By: Monse Shipley on 08-11-2023 Calcium [Mass/Vol] 8.8 mg/dL 8.5-10.1 [facility] Serum or plasma creatinine m easurement (mass/volume)Ordered By: Monse Shipley on 08-11-2023 Creatinine [Mass/Vol] 0.97 mg/dL 0.55-1.02 [facility] Comment on above: The validity of the calculated GFR & GFRAA in patients over 70 years has not been determined. Clinical correlation is essential. Serum or plasma urea nitroge n measurement (mass/volume)Ordered By: Monse Shipley on 08-11-2023 Urea nitrogen [Mass/Vol] 19 mg/dL 7-18 [facility] Thin prep Papanicolaou smear with manual screeningOrdered By: Monse Shipley on 08-11-2023 Thin prep Papanicolaou smear with manual screening 14 U/L 15-37 [facility] Thin prep Papanicolaou smear with manual screening 6 5-15 [facility] C REACTIVE PROTEINon 023 CRP [Mass/Vol] 14.5 mg/L High 0 - 10 MG/L [facility] Comment on above: Testing performed at [place], [place] [address] Laboratory - Chemistry and C hemistry - challengeon 08-04-2023 Albumin [Mass/Vol] 4.1 G/dl 3.5 - 5.0 G/dl [facility] Albumin/Globulin [Mass ratio] 1.4 {ratio} [facility] ALP [Catalytic activity/Vol] 41 U/L [facility] ALT [Catalytic activity/Vol] 27 U/L NINF [facility] AST [Catalytic activity/Vol] 33 U/L [facility] Bilirubin [Mass/Vol] 0.5 mg/dL [facility] Calcium [Mass/Vol] 9.4 mg/dL [facility] Chloride [Moles/Vol] 103 mmol/L [facility] Comment on above: Please note: Triglyc eride levels of 600mg/dL or higher may positively bias chloride results by approximately 2.1 mmol CO2 [Moles/Vol] 31 mmol/L [facility] Creatinine [Mass/Vol] 0.80 mg/dL [facility] GFR/1.73 sq M.predicted among blacks MDRD (S/P/Bld) [Vol rate/Area] 93 mL/min/{1.73_m2} ml/min/1.73sq .m [facility] GFR/1.73 sq M.predicted among non-blacks MDRD (S/P/Bld) [Vol rate/Area] 77 mL/min/{1.73_m2} ml/min/1.73sq .m [facility] Glucose post fast [Mass/Vol] 111 mg/dL High [facility] Comment on above: NORMAL <100 mg/dL PREDIABETES 101-126 mg/dL DIABETES 126 mg/dL or higher Potassium [Moles/Vol] 4.0 mmol/L [facility] Protein [Mass/Vol] 7.0 g/dL [facility] Sodium [Moles/Vol] 137 mmol/L [facility] Urea nitrogen [Mass/Vol] 18 mg/dL [facility] Laboratory - Hematology and Cell countson 08-04-2023 Basophils/100 WBC (Bld) 0.5 % 0.0 - 2.0 % [facility] Differential cell count method Nom (Bld) AUTO DIFF % [facility] Eosinophils (Bld) [#/Vol] 0.0 10*3/uL 0.0 - 0.7 10*3/uL [facility] Eosinophils/100 WBC (Bld) 0.3 % 0.0 - 11.0 % [facility] Erythrocyte distribution width (RBC) [Ratio] 13.1 % 11.5 - 14.5 % [facility] Hematocrit (Bld) [Volume fraction] 36.7 % 36.0 - 48.0 % [facility] Hemoglobin (Bld) [Mass/Vol] 12.4 g/dL [facility] Lymphocytes (Bld) [#/Vol] 2.5 10*3/uL 1.2 - 3.4 10*3/uL [facility] Lymphocytes/100 WBC (Bld) 35.3 % 20.0 - 55.0 % [facility] MCH (RBC) [Entitic mass] 33.0 pg 26.0 - 35.0 PG [facility] MCHC (RBC) [Mass/Vol] 33.8 g/dL [facility] MCV (RBC) [Entitic vol] 97.5 fL [facility] Monocytes (Bld) [#/Vol] 0.9 10*3/uL High 0.0 - 0.7 10*3/uL [facility] Monocytes/100 WBC (Bld) 12.6 % High 0.0 - 10.0 % [facility] Neutrophils (Bld) [#/Vol] 3.6 10*3/uL 1.4 - 6.5 10*3/uL [facility] Neutrophils/100 WBC (Bld) 51.3 % 37.0 - 75.0 % [facility] Platelet mean volume (Bld) [Entitic vol] 7.4 fL [facility] Platelets (Bld) [#/Vol] 143 10*3/uL 130 - 400 10*3/uL [facility] RBC (Bld) [#/Vol] 3.77 10*6/uL Low 4.0 - 5.4 10*6/uL [facility] WBC (Bld) [#/Vol] 7.0 10*3/uL 3.6 - 11.0 10*3/uL [facility] No Panel Informationon 08-04 GFR COMMENT Average GFR for 60-6 9 years old = 85. [facility] Comment on above: Chronic Kidney disea se, GFR = <60. Kidney failure, GFR = <15. The GFR estimate is not adjusted for extreme body surface area or acute process, nor has it been validated for women or ethnic groups other than and . Testing performed at [place] [address] Interpretation and review of laboratory results Abnormal [facility] ABSOLUTE BASOPHIL COUNT 0.0 10*3/uL 0.0 - 0.2 10*3/uL [facility] Comment on above: Testing performed at [place] [address] Interpretation and review of laboratory results Abnormal [facility] SEDIMENTATION RATE, AUTOMATE Don 08-04-2023 ESR (Bld) [Velocity] 16 mm/h [facility] Comment on above: Testing performed at [address] INCISION AND DRAINAGEon 06-25 Jone Lyons PM 07/21/2023 8:00 PM INCISION AND DRAINAGE Date/Time: 07/21/2023 1:50 PM Performed by: Dawn Uriarte DPM Authorized by: Dawn Urirate DPM Indications: Type: Abscess Location: Body area: [...] well with no immediate complications Culture taken [facility] Radiology Study observation (narrative) [facility] LOWER EXTREMITY INJECTIONon 07-17-2023 Radiology Study observation (narrative) [facility] PT Progress Noteon 3 PT Progress Note No report was sent Normal [email or web address] Therapy Communicationon 06-24 Therapy Communication Message ELENA GALEANO canceled today . d/t illness. Signatures Electronically signed by : Cuca Cervantes PTA; Jul 12 2023 11:19AM EST [...] code time is 43 minutes. Aquatic Therapy (59948): timed minutes 43, units 3 . TrA contraction review 10 x 5 SIDE STEPPING x 3 laps Heel raises x 20 Squats x 18 P Hip Flexion x 20 P Hip Abd/add x 20 P Alt. december Steps x 20 Step Taps x20 Step Ups x15 P DB ROLLS 30 ea. [place] [employer] ABDOMINALS sm. blue board x 10 flexion, push/pull UE PADDLES x 20 ea. Open Flex/ext, abd/add, H. abd/add, push/pull 100% UNLOADING 1 noodle Bike 5' Hip abd/add 5' Hang 5' GRADUAL EXIT 2'. 'Scores and Scales' Signatures Electronically signed by : Laya Gomez [employer]; Jul 07 2023 11:26AM EST (Author) Electronically [...] code time is 43 minutes. Aquatic Therapy (07618): timed minutes 43, units 3 . TrA contraction review 10 x 5 SIDE STEPPING x 3 laps Heel raises x 20 P Squats x 15 P Hip Flexion x 15 P Hip Abd/add x 15 Alt. december Steps x 20 P Squat x12 P Step Taps x15 N Step Ups x10 N DB ROLLS 30 ea. [place] [employer] ABDOMINALS sm. blue board x 10 flexion, push/pull UE PADDLES x 20 ea. Open Flex/ext, abd/add, H. abd/add, push/pull 100% UNLOADING 1 noodle Bike 5' Hip abd/add 5' Hang 5' GRADUAL EXIT 2'. 'Scores and Scales' Signatures Electronically signed by : Laya Gomez [employer] TE[employer]; Jul 05 2023 12:10PM EST (Author) Electronically [...] code time is 43 minutes. Aquatic Therapy (51874): timed minutes 43, units 3 . TrA contraction review 10 x 5 SIDE STEPPING x 3 laps Heel raises x 15 P Squats x 12 P Hip Flexion x 10 Hip Abd/add x 15 P Alt. december Steps x 15 P Squat x10 N DB ROLLS 30 ea. [place] [employer] ABDOMINALS sm. blue board x 10 flexion, [...] acute or healing fracture in the foot. [facility] Radiology Study observation (narrative) [facility] MR Foot - left WO contrastOr dered By: Keshawn Adkins on 06-29-2023 [facility] Work Phone: PT Progress Noteon 3 PT Progress Note No report was sent Normal [employer] PT Progress Note Therapy Diagnosis Assessed Sacroiliitis [...] code time is 40 minutes. Aquatic Therapy (32792): timed minutes 40, units 3 . SIDE x 10 STEPPING x 3 laps Heel raises x 10 Squats x 10 Hip Flexion x 10 Hip Abd/add x 10 Alt. december Steps x 10 DB ROLLS 30 ea. [place] [employer] ABD[employer]IN[employer] sm. blue board x 10 flexion, push/pull UE PADDLES x 20 ea. Open Flex/ext, abd/add, H. abd/add, push/pull 100% UNLOADING 1 noodle Bike 5' Hip abd/add 5' Hang 5' GRADUAL EXIT 2'. 'Scores and Scales' Signatures Electronically signed by : Silvia Mcneill, [employer] TE[employer]ER; Jun 29 2023 11:59AM EST (Author) Electronically signed by : Gregory Soto, PT; Jun 29 2023 2:13PM EST Normal [email or web address] PT Initial Evaluationon 05-26 PT Initial Evaluation [...] Impact Care:. ID confirmed with B-day; speaks romanian No obtrusive barriers to learning identified/observed. Objective [...] and pelvic floor stability exercises. Evaluation Code: 68478 PT Eval: Low Complexity, 40 min(s). Contacts [...] fashion. The patient was prepped with alcohol. 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 2. Calcaneal spurs. [facility] Radiology Study observation (narrative) [facility] XR Foot - left 3 ViewsOrdere d By: Arsalan Kramer on 06-14-2023 [facility] Work Phone: XR Lumbar spine Views W [...] or subluxation. Left-sided sacroiliac fixation. Intact hardware. [facility] Radiology Study observation (narrative) [facility] XR Lumbar spine Views W righ t bending and W left bendingOrdered By: Geronimo Avina on 06-07-2023 [facility] Work Phone: MR Foot - left WO [...] abnormality or cortical disruption to suggest osteomyelitis. [facility] Radiology Study observation (narrative) [facility] MR Foot - left WO contrastOr dered By: Kayy Martinez on 05-10-2023 [facility] [place] DRAIN SKIN ABSCESS COMPLI C/MULTIPLEon 05-05-2023 Jone Lyons PM 05/06/2023 1:51 PM [place] DRAIN SKIN ABSCESS COMPLIC/MULTIPLE Performed by: Dawn Uriarte DPM Authorized by: Dawn Uriarte DPM [place] Protocol Verbal consent obtained Written consent obtained Risks and benefits discussed Consent given by: patient Immediately prior to procedure a time out was called to verify the correct patient, procedure, equipment, lead performance support analyst and site/side marked as required. Anesthesia: Local [...] before then, they should contact my office. [facility] INCISION AND DRAINAGEon 04-23 Radiology Study observation (narrative) [facility] INCISION AND DRAINAGEon 04-23 CARO Knutson 05/03/2023 [...] the procedure well with no immediate complications [facility] XR Foot - left 3 Viewson IMPRESSION: [...] of fracture, dislocation, advanced arthropathy or osteomyelitis. [facility] Radiology Study observation (narrative) [facility] XR Foot - left 3 ViewsOrdere d By: Lolita Funk on 05-02-2023 [facility] CBC, EDIF, PLATELETon 2022 ABSOLUTE BASOPHIL COUNT 0.0 10*3/uL 0.0 - 0.2 10*3/uL [facility] Basophils/100 WBC (Bld) 0.6 % 0.0 - 2.0 % [facility] Differential cell count method Nom (Bld) AUTO DIFF % [facility] Eosinophils (Bld) [#/Vol] 0.1 10*3/uL 0.0 - 0.7 10*3/uL [facility] Eosinophils/100 WBC (Bld) 1.2 % 0.0 - 11.0 % [facility] Erythrocyte distribution width (RBC) [Ratio] 13.4 % 11.5 - 14.5 % [facility] Hematocrit (Bld) [Volume fraction] 37.2 % 36.0 - 48.0 % [facility] Hemoglobin (Bld) [Mass/Vol] 12.7 g/dL [facility] Interpretation and review of laboratory results Abnormal [facility] Lymphocytes (Bld) [#/Vol] 1.8 10*3/uL 1.2 - 3.4 10*3/uL [facility] Lymphocytes/100 WBC (Bld) 37.9 % 20.0 - 55.0 % [facility] MCH (RBC) [Entitic mass] 33.1 pg 26.0 - 35.0 PG [facility] MCHC (RBC) [Mass/Vol] 34.1 g/dL [facility] MCV (RBC) [Entitic vol] 97.3 fL [facility] Monocytes (Bld) [#/Vol] 0.5 10*3/uL 0.0 - 0.7 10*3/uL [facility] Monocytes/100 WBC (Bld) 10.5 % High 0.0 - 10.0 % [facility] Neutrophils (Bld) [#/Vol] 2.4 10*3/uL 1.4 - 6.5 10*3/uL [facility] Neutrophils/100 WBC (Bld) 49.8 % 37.0 - 75.0 % [facility] Platelet mean volume (Bld) [Entitic vol] 8.2 fL [facility] Platelets (Bld) [#/Vol] 182 10*3/uL 130 - 400 10*3/uL [facility] RBC (Bld) [#/Vol] 3.82 10*6/uL Low 4.0 - 5.4 10*6/uL [facility] WBC (Bld) [#/Vol] 4.8 10*3/uL 3.6 - 11.0 10*3/uL [facility] COMPREHENSIVE METABOLIC PANE Ethan 04-21-2023 Albumin [Mass/Vol] 3.6 G/dl 3.5 - 5.0 G/dl [facility] Albumin/Globulin [Mass ratio] 1.4 {ratio} RATIO [facility] ALP [Catalytic activity/Vol] 61 U/L [facility] ALT [Catalytic activity/Vol] 37 U/L High [facility] AST [Catalytic activity/Vol] 41 U/L High [facility] Bilirubin [Mass/Vol] 0.4 mg/dL [facility] Calcium [Mass/Vol] 8.4 mg/dL [facility] Chloride [Moles/Vol] 99 mmol/L [facility] Comment on above: Please note: Triglyc eride levels of 600mg/dL or higher may positively bias chloride results by approximately 2.1 mmol CO2 [Moles/Vol] 25 mmol/L [facility] Creatinine [Mass/Vol] 0.81 mg/dL [facility] GFR COMMENT Average GFR for 60-6 9 years old = 85. [facility] Comment on above: Chronic Kidney disea se, GFR = <60. Kidney failure, GFR = <15. The GFR estimate is not adjusted for extreme body surface area or acute process, nor has it been validated for women or ethnic groups other than and . GFR/1.73 sq M.predicted among blacks MDRD (S/P/Bld) [Vol rate/Area] 91 mL/min/{1.73_m2} ml/min/1.73sq .m [facility] GFR/1.73 sq M.predicted among non-blacks MDRD (S/P/Bld) [Vol rate/Area] 75 mL/min/{1.73_m2} ml/min/1.73sq .m [facility] Glucose post fast [Mass/Vol] 116 mg/dL High [facility] Comment on above: NORMAL <100 mg/dL PREDIABETES 101-126 mg/dL DIABETES 126 mg/dL or higher Interpretation and review of laboratory results Abnormal [facility] Potassium [Moles/Vol] 4.0 mmol/L [facility] Protein [Mass/Vol] 6.1 g/dL Low [facility] Sodium [Moles/Vol] 134 mmol/L Low [facility] Urea nitrogen [Mass/Vol] 13 mg/dL [facility] ECGon 04-21-2023 [facility] HEMOGLOBIN A1Con 04-21-2023 Glucose [Mass/Vol] 123 mg/dL [facility] HbA1c (Bld) [Mass fraction] 5.9 % NINF - 6 % [facility] Comment on above: NORMAL <5.7% PREDIABETES 5.7-6.4% DIABETES 6.5% OR HIGHER [facility] MAGNESIUMon 04-21-2023 Interpretation and review of laboratory results Abnormal [facility] Magnesium [Mass/Vol] 1.3 mg/dL Low [facility] No Panel Informationon 04-[address] [facility] Interpretation and review of laboratory results Abnormal [facility] PHOSPHATE, INORGANICon 04-21 Phosphate [Mass/Vol] 3.7 mg/dL [facility] PROTIME-INRon 04-21-2023 INR Coag (PPP) [Relative time] 1.07 {INR} 0.85 - 1.10 [facility] Comment on above: 2.0-3.0 THERAPEUTIC RANGE 2.5-3.5 MECHANICAL VALVE RANGE PT Coag (PPP) [Time] 14.0 s [facility] SCREEN: MRSA ONLY, NARES (IS OLATION SCREEN)on 04-21-2023 MRSA isol Org specific cx Ql (Nose) Negative NEGATIVE [facility] STAPHYOCOCCUS AUREUS BY PCR Negative NEGATIVE [facility] Comment on above: TESTING PERFORMED BY PCR [facility] SODIUM, RANDOM URINEon 04-21 Sodium (U) [Moles/Vol] 50 mmol/L [facility] TYPE AND SCREEN - POSSIBLE T RANSFUSIONon 04-21-2023 ABO and Rh group Nom (Bld ) Positive [facility] ARM BAND NUMBER [id number] [facility] Blood group antibody screen Ql Negative [facility] EXPIRATION DATE 05/19/2023,[id number] [facility] URINALYSIS, MACROon 04-21-20 23 Bilirubin Ql (U) Negative NEGATIVE [facility] Clarity (U) CLEAR CLEAR [facility] Color (U) YELLOW YELLOW [facility] Glucose Test strip (U) [Mass/Vol] Negative NEGATIVE mg/dl [facility] Hemoglobin Ql (U) Negative NEGATIVE [facility] Ketones (U) [Mass/Vol] Negative NEGATIVE mg/dl [facility] Leukocyte esterase Test strip Ql (U) Negative NEGATIVE [facility] Nitrite Ql (U) Negative NEGATIVE [facility] pH (U) 6.5 [pH] 5.0 - 7.0 [facility] Protein Ql (U) Negative NEGATIVE mg/dl [facility] Specific gravity (U) [Rel density] 1.010 1.010 - 1.025 [facility] Urobilinogen (U) [Mass/Vol] 0.2 mg/dL [facility] Bilirubin Ql (U) Negative NEGATIVE [facility] Clarity (U) CLEAR CLEAR [facility] Color (U) YELLOW YELLOW [facility] Glucose Test strip (U) [Mass/Vol] Negative NEGATIVE mg/dl [facility] Hemoglobin Ql (U) TRACE-INTACT Abnormal NEGATIVE [facility] Ketones (U) [Mass/Vol] Negative NEGATIVE mg/dl [facility] Leukocyte esterase Test strip Ql (U) Negative NEGATIVE [facility] Nitrite Ql (U) Negative NEGATIVE [facility] pH (U) 6.0 [pH] 5.0 - 7.0 [facility] Protein Ql (U) Negative NEGATIVE mg/dl [facility] Specific gravity (U) [Rel density] 1.010 1.010 - 1.025 [facility] Urobilinogen (U) [Mass/Vol] 0.2 mg/dL [facility] URINE MICROSCOPICon 04-21-20 23 Bacteria LM.HPF (Urine sed) [#/Area] Negative NEGATIVE [facility] Casts LM.LPF (Urine sed) [#/Area] NONE NONE /LPF [facility] Crystals LM Nom (Urine sed) NONE NONE [facility] Epithelial cells LM Ql (Urine sed) NONE /HPF [facility] Mucus Ql (Urine sed) Negative NEGATIVE [facility] RBC LM.HPF (Urine sed) [#/Area] Negative NEGATIVE /HPF [facility] Urine sediment comments LM Brian (Urine sed) CULTURE CRITERIA NOT MET, NO CULTURE PERFORMED. [facility] WBC LM.HPF (Urine sed) [#/Area] Negative NEGATIVE /HPF [facility] Bacteria LM.HPF (Urine sed) [#/Area] TRACE Abnormal NEGATIVE [facility] Casts LM.LPF (Urine sed) [#/Area] NONE NONE /F [facility] Crystals LM Nom (Urine sed) NONE NONE [facility] Epithelial cells LM Ql (Urine sed) 10 TO 20 /HPF [facility] Mucus Ql (Urine sed) Negative NEGATIVE [facility] RBC LM.HPF (Urine sed) [#/Area] 1 TO 5 NEGATIVE /HPF [facility] Urine sediment comments LM Brian (Urine sed) POSSIBLY CONTAMINATED SPECIMEN, CULTURE MUST BE ORDERED SEPARATELY IF DEEMED NECESSARY. [facility] WBC LM.HPF (Urine sed) [#/Area] 1 TO 5 NEGATIVE /HPF [facility] URINE PROTEIN/CREA RATIO, RA NDOMon 04-21-2023 Creatinine (U) [Mass/Vol] 22.6 mg/dL MG/DL [facility] Comment on above: NO NORMAL VALUES EST ABLISHED FOR RANDOM SPECIMENS Protein (U) [Mass/Vol] 12 mg/dL [facility] PROTEIN/CREAT RATIO, URINE 0.5 [facility] Comment on above: REFERENCE RANGES <0.2 NORMAL [...] lumbar spine and left hip on a Needle HR machine. FINDINGS: BONE MINERAL DENSITY DETERMINATION: Instrument: The examination was done at [facility]. The average bone mineral density was measured. [...] lumbar spine and left hip on a Needle HR machine. FINDINGS: BONE MINERAL DENSITY DETERMINATION: Instrument: The examination was done at [facility]. The average bone mineral density was measured. [...] the International Society of Clinical Densitometry): Normal. [facility] Study observation (narrative) [facility] BONE DENSITY AXIAL (HIP, PEL VIS, SPINE)Ordered By: Esteban Cui on 03-01-2023 [facility] Work Phone: CT CERVICAL SPINE WITHOUT CO [...] subluxation of the cervical spine. Workstation ID: [id number] Dictated by: CASSIE BARNES on Sat Feb 05, 2023 6:36:00 PM EDT Transcribed by: CASSIE BARNES on [facility] Feb 05, 2023 6:36:00 PM EDT Finalized by: CASSIE BARNES on [facility] Feb 05, 2023 6:36:00 PM EDT [facility] Comment on above: Order Comment: Injur [...] subluxation of the cervical spine. Workstation ID: [id number] Dictated by: CASSIE BARNES on Sat Feb 05, 2023 6:36:00 PM EDT Transcribed by: CASSIE BARNES on Sat Feb 05, 2023 6:36:00 PM EDT Finalized by: CASSIE BARNES on Sat Feb 05, 2023 6:36:00 PM EDT [facility] Comment on above: Order Comment: Injur y/Trauma or Illness?:Injury/Trauma How long have you had these symptoms (acute/chronic)?:Acute Reason for exam?:fall struck forehead Type of Exam?:Initial Mechanism of injury?:fall CNPNon 12-13-2022 CNPN Telephone ([facility]) ELENA GALEANO ([id number]) 1960 F Date Time Provider Department 12/13/22 [...] states her heart Dr. [place] at the [place] put her back on Carvedilol at 12.5 [...] Encounter Status:Closed by SHI MOREL on 12/13/22 [facility] CBC, EDIF, PLATELETon 2022 ABSOLUTE BASOPHIL COUNT 0.0 10*3/uL 0.0 - 0.2 10*3/uL [facility] Basophils/100 WBC (Bld) 0.7 % 0.0 - 2.0 % [facility] Differential cell count method Nom (Bld) AUTO DIFF % [facility] Eosinophils (Bld) [#/Vol] 0.0 10*3/uL 0.0 - 0.7 10*3/uL [facility] Eosinophils/100 WBC (Bld) 0.5 % 0.0 - 11.0 % [facility] Erythrocyte distribution width (RBC) [Ratio] 13.0 % 11.5 - 14.5 % [facility] Hematocrit (Bld) [Volume fraction] 37.7 % 36.0 - 48.0 % [facility] Hemoglobin (Bld) [Mass/Vol] 12.7 g/dL [facility] Interpretation and review of laboratory results Abnormal [facility] Lymphocytes (Bld) [#/Vol] 2.5 10*3/uL 1.2 - 3.4 10*3/uL [facility] Lymphocytes/100 WBC (Bld) 35.3 % 20.0 - 55.0 % [facility] MCH (RBC) [Entitic mass] 32.7 pg 26.0 - 35.0 PG [facility] MCHC (RBC) [Mass/Vol] 33.6 g/dL [facility] MCV (RBC) [Entitic vol] 97.1 fL [facility] Monocytes (Bld) [#/Vol] 0.7 10*3/uL 0.0 - 0.7 10*3/uL [facility] Monocytes/100 WBC (Bld) 9.2 % 0.0 - 10.0 % [facility] Neutrophils (Bld) [#/Vol] 3.8 10*3/uL 1.4 - 6.5 10*3/uL [facility] Neutrophils/100 WBC (Bld) 54.3 % 37.0 - 75.0 % [facility] Platelet mean volume (Bld) [Entitic vol] 9.1 fL [facility] Platelets (Bld) [#/Vol] 211 10*3/uL 130.0 - 400.0 10*3/uL [facility] RBC (Bld) [#/Vol] 3.88 10*6/uL Low 4.0 - 5.4 10*6/uL [facility] WBC (Bld) [#/Vol] 7.1 10*3/uL 3.6 - 11.0 10*3/uL [facility] COMPREHENSIVE METABOLIC PANE Ethan 11-22-2022 Albumin [Mass/Vol] 4.0 G/dl 3.5 - 5.0 G/dl [facility] Albumin/Globulin [Mass ratio] 1.4 {ratio} [facility] ALP [Catalytic activity/Vol] 45 U/L [facility] ALT [Catalytic activity/Vol] 30 U/L [facility] AST [Catalytic activity/Vol] 35 U/L [facility] Bilirubin [Mass/Vol] 0.4 mg/dL [facility] Calcium [Mass/Vol] 9.5 mg/dL [facility] Chloride [Moles/Vol] 94 mmol/L Low [facility] CO2 [Moles/Vol] 28 mmol/L [facility] Creatinine [Mass/Vol] 0.93 mg/dL [facility] GFR COMMENT Average GFR for 60-6 9 years old = 85. [facility] Comment on above: Chronic Kidney disea se, GFR = <60. Kidney failure, GFR = <15. The GFR estimate is not adjusted for extreme body surface area or acute process, nor has it been validated for women or ethnic groups other than and . GFR/1.73 sq M.predicted among blacks MDRD (S/P/Bld) [Vol rate/Area] 78 mL/min/{1.73_m2} ml/min/1.73sq .m [facility] GFR/1.73 sq M.predicted among non-blacks MDRD (S/P/Bld) [Vol rate/Area] 65 mL/min/{1.73_m2} ml/min/1.73sq .m [facility] Glucose post fast [Mass/Vol] 105 mg/dL High [facility] Comment on above: NORMAL <100 mg/dL PREDIABETES 101-126 mg/dL DIABETES 126 mg/dL or higher Potassium [Moles/Vol] 3.9 mmol/L [facility] Protein [Mass/Vol] 6.9 g/dL [facility] Sodium [Moles/Vol] 135 mmol/L Low [facility] Urea nitrogen [Mass/Vol] 22 mg/dL [facility] FERRITINon 11-22-2022 Ferritin [Mass/Vol] 19 ng/mL [facility] Comment on above: PREMENOPAUSAL FEMALE S 6.9-282.5 POSTMENOPAUSAL FEMALES 14.0-233.1 FOLATE, SERUMon 11-22-2022 Folate [Mass/Vol] 11.8 ng/mL - PINF [facility] HEMOGLOBIN A1Con 11-22-2022 Glucose [Mass/Vol] 120 mg/dL [facility] HbA1c (Bld) [Mass fraction] 5.8 % NINF - 6 % [facility] Comment on above: NORMAL <5.7% PREDIABETES 5.7-6.4% DIABETES 6.5% OR HIGHER [facility] IRON/IRON BINDING/TRANSFERRI Non 11-22-2022 Iron [Mass/Vol] 129 ug/dL [facility] Iron binding capacity [Mass/Vol] 539 High [facility] Iron saturation [Mass fraction] 24 % [facility] LIPID PANEL W CALCULATED LDL on 11-22-2022 Cholesterol [Mass/Vol] 194 mg/dL [facility] Cholesterol in HDL [Mass/Vol] 73 mg/dL [facility] Cholesterol in LDL [Mass/Vol] 68 mg/dL [facility] Cholesterol in VLDL [Mass/Vol] 53 mg/dL [facility] Cholesterol.total/Ch olesterol in HDL [Mass ratio] 2.66 {ratio} RATIO [facility] Comment on above: RISK TOTAL/HDL RATIO MEN WOMEN 1/2 AVERAGE 3.43 3.27 AVERAGE 4.97 4.44 2X AVERAGE 9.55 7.05 3X AVERAGE 23.99 11.04 Triglyceride [Mass/Vol] 267 mg/dL High [facility] No Panel Informationon 11-22 [facility] Interpretation and review of laboratory results Abnormal [facility] TSHon 11-22-2022 TSH Qn 2.143 m[IU]/L [facility] URIC ACIDon 11-22-2022 Urate [Mass/Vol] 7.4 mg/dL High [facility] VITAMIN B12on 11-22-2022 Cobalamin (Vitamin B12) [Mass/Vol] 664 pg/mL 180 - 914 PG/ML [facility] VITAMIN D (25-HYDROXY,TOTAL) on 11-22-2022 25-hydroxyvitamin D [Mass/Vol] 41.7 - PINF [facility] Comment on above: DEFICIENT <20 NG/ML INSUFFICIENT 20-<30 NG/ML SUFFICIENT 30-100 NG/ML POTENTIAL TOXICITY >100 NG/ML CNCOon 11-15-2022 CNCO Letter Text Normal [facility] Basic metabolic 2000 panelon 11-12-2022 Anion gap [Moles/Vol] 8 mmol/L Low 9-18 [facility] Comment on above: Order Comment: Speci men Type: BLOOD SPECIMENOrdering Facility: [facility] Address: [address] [place] [address] Performed By: #### 2 777-1, 34696-1, ####[facility]ORYCL[facility] [id number] [place] [address] [place] Calcium [Mass/Vol] 10.0 mg/dL Normal 8.5-10.2 [facility] Comment on above: Order Comment: Speci men Type: BLOOD SPECIMENOrdering Facility: [facility] Address: [address] [place] [address] Performed By: #### 2 777-1, , ####[facility] LABORATORYCLIA [id number] [place] [address] [place] Chloride [Moles/Vol] 104 mmol/L Normal 97-105 [facility] Comment on above: Order Comment: Speci men Type: BLOOD SPECIMENOrdering Facility: [facility] Address: [address] [place] [address] Performed By: #### 2 777-1, , ####[facility] LABORATORYCLIA [id number] [address] [place] CO2 [Moles/Vol] 30 mmol/L Normal 22-30 [facility] Comment on above: Order Comment: Speci men Type: BLOOD SPECIMENOrdering Facility: [facility] Address: [address] [place] [address] Performed By: #### 2 777-1, , ####[facility] LABORATORYCLIA [id number] [place] [address] [place] Creatinine [Mass/Vol] 0.97 mg/dL High 0.58-0.96 [facility] Comment on above: Order Comment: Speci men Type: BLOOD SPECIMENOrdering Facility: [facility] Address: [address] [place], [place] [id number] Performed By: #### 2 777-1, 36874-1, ####[facility] LABORATORYCLIA [id number] [address] ESTIMATED GLOMERULAR FILTRATION RATE 65 mL/min/1.73m??? Normal >=60 [facility] Comment on above: Order Comment: Brian ramey Type: BLOOD SPECIMENOrdering Facility: [facility] Address: [place] [address] Result Comment: Nay mated Glomerular Filtration [...] actual GFR. Performed By: #### 2 777-1, 94937-2, ####[facility] LABORATORYCLIA [id number] [address] STATES OF [facility] Glucose [Mass/Vol] 118 mg/dL High 74-99 [facility] Comment on above: Order Comment: Brian ramey Type: BLOOD SPECIMENOrdering Facility: [facility] Address: [address] [place] [address] Result Comment: The [place] [employer] (ADA) provides guidance for cutoff [...] Standards of Medical Care in Diabetes 2016, [place] [employer]. Diabetes Care. 2016.39(Suppl 1). Performed By: #### 2 777-1, 88016-6, ####[facility] LABORATORYCLIA [id number] [address] [place] Potassium [Moles/Vol] 4.5 mmol/L Normal 3.7-5.1 [facility] Comment on above: Order Comment: Speci men Type: BLOOD SPECIMENOrdering Facility: [facility] Address: [address] [place] [address] Performed By: #### 2 777-1, 56172-0, ####[facility] LABORATORYCLIA [id number] [address] Sodium [Moles/Vol] 142 mmol/L Normal 136-144 [facility] Comment on above: Order Comment: Speci men Type: BLOOD SPECIMENOrdering Facility: [facility] Address: [address] [place] [address] Performed By: #### 2 777-1, 12378-3, ####[facility] LABORATORYCLIA [id number] [address] [place] Urea nitrogen [Mass/Vol] 12 mg/dL Normal 7-21 [facility] Comment on above: Order Comment: Speci men Type: BLOOD SPECIMENOrdering Facility: [facility] Address: [address] [place] [address] Performed By: #### 2 777-1, 79344-6, ####[facility] LABORATORYCLIA [id number] [address] OF [facility] CASE MANAGEMon 11-12-2022 CASE MANAGEM HNO ID: [id number] Author: Yoselin Callahan RN Service: ? Author Type: Registered Nurse Type: Care Mgt Progress Note Filed: 11/12/2022 2:18 PM Note Text: CARE MANAGEMENT PROGRESS NOTE SERVICE DATE: 11/12/2022 SERVICE TIME: 2:13 PM LOS: 3 days Admission Date: 11/09/2022 DISCHARGE ARRANGEMENT Discharge Arrangement: Home with Self Care HANDOFF COMMUNICATION: Handoff to: Primary Care Physician Primary Care Physician Name/Phone: PCP: Fernie Paredes, DO - [phone] TRANSPORTATION ARRANGEMENTS: Transportation Arrangements: Car (Family to Transport - Spouse) ADDITIONAL CONTACT RESOURCES: Discharge Information Row Name ED to Hosp-Admission (Current) from 11/09/2022 in [facility] Medical Follow-Up Appointment Provider Name PCP: Fernie Paredes, - [phone] Needs Prior to Discharge: Ready for Discharge Discharge Time Out Yes - by phone Bedside RN present No - Message sent to update nurse: Vero Valdez RN Does pt have transport home? Yes - Spouse Did pt use bedside pharmacy? Yes SIGNATURE: Yoselin Callahan RN PATIENT NAME: Elena Galeano DATE: November 12, 2022 TIME: 2:10 PM PAGER/CONTACT #: [phone] [facility] CASE MANAGEM HNO ID: [id number] Author: Yoselin Callahan RN Service: ? Author [...] 12, 2022 TIME: 9:41 AM PAGER/CONTACT #: [phone] [facility] CBC W Auto Differential pane l (Bld)on 11-12-2022 Basophils (Bld) [#/Vol] 0.03 10*3/uL Normal <0.11 [facility] Comment on above: Order Comment: Speci men Type: BLOOD SPECIMENOrdering Facility: [facility] Address: [address] [place] [address] Performed By: #### 5 7021-8 ####[facility]ORATORYCLIA [id number] [place] [address] [place] Basophils/100 WBC (Bld) 0.6 % Normal [facility] Comment on above: Order Comment: Speci men Type: BLOOD SPECIMENOrdering Facility: [facility] Address: [address] [place] [address] Performed By: #### 5 7021-8 ####[facility]ORATORYCLIA [id number] [address] [place] Differential cell count method Nom (Bld) Auto Normal [facility] Comment on above: Order Comment: Speci men Type: BLOOD SPECIMENOrdering Facility: [facility] Address: [address] [place] [address] Performed By: #### 5 7021-8 ####[facility] LABORATORYCLIA [id number] [place] [address] [place] Eosinophils (Bld) [#/Vol] 0.06 10*3/uL Normal <0.46 [facility] Comment on above: Order Comment: Speci men Type: BLOOD SPECIMENOrdering Facility: [facility] Address: [address] [place] [address] Performed By: #### 5 7021-8 ####[facility]ORATORYCLIA [id number] [address] Eosinophils/100 WBC (Bld) 1.2 % Normal [facility] Comment on above: Order Comment: Speci men Type: BLOOD SPECIMENOrdering Facility: [facility] Address: [address] [place] [address] Performed By: #### 5 7021-8 ####[facility]ORATORYCLIA [id number] [address] Erythrocyte distribution width (RBC) [Ratio] 12.8 % Normal 11.5-15.0 [facility] Comment on above: Order Comment: Speci men Type: BLOOD SPECIMENOrdering Facility: [facility] Address: [address] [place] [address] Performed By: #### 5 7021-8 ####[facility]ORATORYCLIA [id number] [address] [place] Hematocrit (Bld) [Volume fraction] 37.1 % Normal 36.0-46.0 [facility] Comment on above: Order Comment: Speci men Type: BLOOD SPECIMENOrdering Facility: [facility] Address: [address] [place] [address] Performed By: #### 5 7021-8 ####[facility]ORATORYCLIA [id number] [address] [place] Hemoglobin (Bld) [Mass/Vol] 12.4 g/dL Normal 11.5-15.5 [facility] Comment on above: Order Comment: Speci men Type: BLOOD SPECIMENOrdering Facility: [facility] Address: [address] [place] [address] Performed By: #### 5 7021-8 ####[facility]ORATORYCLIA [id number] [address] [place] Immature granulocytes (Bld) [#/Vol] 10*3/uL Normal <0.10 [facility] Comment on above: Order Comment: Speci men Type: BLOOD SPECIMENOrdering Facility: [facility] Address: [address] [place] [address] Performed By: #### 5 7021-8 ####[facility]ORATORYCLIA [id number] [address] [place] Immature granulocytes/100 WBC (Bld) 0.0 % Normal [facility] Comment on above: Order Comment: Speci men Type: BLOOD SPECIMENOrdering Facility: [facility] Address: [address] [place] [address] Performed By: #### 5 7021-8 ####[facility] LABORATORYCLIA [id number] [place] [address] [place] Lymphocytes (Bld) [#/Vol] 2.38 10*3/uL Normal 1.00-4.00 [facility] Comment on above: Order Comment: Speci men Type: BLOOD SPECIMENOrdering Facility: [facility] Address: [address] [place] [address] Performed By: #### 5 7021-8 ####[facility] LABORATORYCLIA [id number] [place] [address] [place] [facility] [place] Lymphocytes/100 WBC (Bld) 46.0 % Normal [facility] Comment on above: Order Comment: Speci men Type: BLOOD SPECIMENOrdering Facility: [facility] Address: [address] [place] [address] Performed By: #### 5 7021-8 ####[facility] LABORATORYCLIA [id number] [address] STATES [facility] MCH (RBC) [Entitic mass] 33.2 pg Normal 26.0-34.0 [facility] Comment on above: Order Comment: Speci men Type: BLOOD SPECIMENOrdering Facility: [facility] Address: [address] [place] [address] Performed By: #### 5 7021-8 ####[facility] LABORATORYCLIA [id number] [address] [place] MCHC (RBC) [Mass/Vol] 33.4 g/dL Normal 30.5-36.0 [facility] Comment on above: Order Comment: Speci men Type: BLOOD SPECIMENOrdering Facility: [facility] Address: [address] [place] [address] Performed By: #### 5 7021-8 ####[facility] LABORATORYCLIA [id number] [address] MCV (RBC) [Entitic vol] 99.5 fL Normal 80.0-100.0 [facility] Comment on above: Order Comment: Speci men Type: BLOOD SPECIMENOrdering Facility: [facility] Address: [address] [place] [address] Performed By: #### 5 7021-8 ####[facility] LABORATORYCLIA [id number] [address] Monocytes (Bld) [#/Vol] 0.58 10*3/uL Normal <0.87 [facility] Comment on above: Order Comment: Speci men Type: BLOOD SPECIMENOrdering Facility: [facility] Address: [address] [place] [address] Performed By: #### 5 7021-8 ####[facility] LABORATORYCLIA [id number] [address] [place] Monocytes/100 WBC (Bld) 11.2 % Normal [facility] Comment on above: Order Comment: Speci men Type: BLOOD SPECIMENOrdering Facility: [facility] Address: [address] [place] [address] Performed By: #### 5 7021-8 ####[facility] LABORATORYCLIA [id number] [place] [address] [place] Neutrophils (Bld) [#/Vol] 2.12 10*3/uL Normal 1.45-7.50 [facility] Comment on above: Order Comment: Speci men Type: BLOOD SPECIMENOrdering Facility: [facility] Address: [address] [place] [address] Performed By: #### 5 7021-8 ####[facility] LABORATORYCLIA [id number] [address] [place] Neutrophils/100 WBC (Bld) 41.0 % Normal [facility] Comment on above: Order Comment: Speci men Type: BLOOD SPECIMENOrdering Facility: [facility] Address: [address] [place] [address] Performed By: #### 5 7021-8 ####[facility] LABORATORYCLIA [id number] [place] [address] [place] Nucleated RBC (Bld) [#/Vol] 10*3/uL Normal <0.01 [facility] Comment on above: Order Comment: Speci men Type: BLOOD SPECIMENOrdering Facility: [facility] Address: [address] [place] [address] Performed By: #### 5 7021-8 ####[facility] LABORATORYCLIA [id number] [place] [address] [place] Nucleated RBC/100 WBC (Bld) [Ratio] 0.0 /100 WBC Normal [facility] Comment on above: Order Comment: Speci men Type: BLOOD SPECIMENOrdering Facility: [facility] Address: [address] [place] [address] Performed By: #### 5 7021-8 ####LOPE[facility] LABORATORYCLIA [id number] [address] [place] Platelet mean volume (Bld) [Entitic vol] 10.3 fL Normal 9.0-12.7 [facility] Comment on above: Order Comment: Speci men Type: BLOOD SPECIMENOrdering Facility: [facility] Address: [address] [place] [address] Performed By: #### 5 7021-8 ####[facility] LABORATORYCLIA [id number] [place] [address] [place] Platelets (Bld) [#/Vol] 218 10*3/uL Normal 150-400 [facility] Comment on above: Order Comment: Speci men Type: BLOOD SPECIMENOrdering Facility: [facility] Address: [address] [place] [address] Performed By: #### 5 7021-8 ####[facility] LABORATORYCLIA [id number] [address] RBC (Bld) [#/Vol] 3.73 10*6/uL Low 3.90-5.20 [facility] Comment on above: Order Comment: Speci men Type: BLOOD SPECIMENOrdering Facility: [facility] Address: [address] [place] [address] Performed By: #### 5 7021-8 ####[facility] LABORATORYCLIA [id number] [address] WBC (Bld) [#/Vol] 5.17 10*3/uL Normal 3.70-11.00 [facility] Comment on above: Order Comment: Speci men Type: BLOOD SPECIMENOrdering Facility: [facility] Address: [address] [place] [address] Performed By: #### 5 7021-8 ####LOPE[facility] LABORATORYCLIA [id number] [address] CNDSon 11-12-2022 CNDS HNO ID: [id number] Author: Manohar Rao MD Service: Hospital Medicine [...] to follow-up with primary care physician and food prep worker soon after discharge from the hospital REASON [...] follow-up with her primary care physician and food prep worker soon after discharge from the hospital to [...] applicable): N/A DISCHARGE DISPOSITION: Home with Self Intermediate with Self Care Physical Exam Performed Constitutional: [...] 11/22/2022 10:30 AM Simona Ji APRN.JULISSA SZYMANSKI [facility] 11/24/2022 9:35 AM [facility] (more content not included)... Normal [facility] Magnesium SerPl-mCncon 11-12 Magnesium [Mass/Vol] 1.8 mg/dL Normal 1.7-2.3 [facility] Comment on above: Order Comment: Speci men Type: BLOOD SPECIMENOrdering Facility: [facility] Address: [place] [address] Performed By: #### 2 777-1, 94565-2, ####LOPEZ LABORATORYCLIA [id number] [place] [address] [place] Phosphate SerPl-mCncon 11-12 Phosphate [Mass/Vol] 4.6 mg/dL Normal 2.7-4.8 [facility] Comment on above: Order Comment: Speci men Type: BLOOD SPECIMENOrdering Facility: [facility] Address: [place] [address] Performed By: #### 2 777-1, 29427-8, ####LOPE[facility] LABORATORYCLIA [id number] [place] [address] [place] THERAPY NTon 11-12-2022 THERAPY NT HNO ID: [id number] Author: Dragan Norman PT Service: Physical Therapy Author Type: Physical Therapist Type: Therapy (PT/OT/Speech/Resp) Filed: 11/12/2022 1:44 PM Note Text: PHYSICAL THERAPY MISSED VISIT SERVICE DATE: 11/12/2022 SERVICE TIME: 1155 to 1204 ROOM: [place] [address] Patient not seen due to Declined. Patient [...] November 12, 2022 TIME: 1:38 PM Normal [facility] Basic metabolic 2000 panelon 11-11-2022 Anion gap [Moles/Vol] 8 mmol/L Low 9-18 [facility] Comment on above: Order Comment: Speci men Type: BLOOD SPECIMENOrdering Facility: [facility] Address: [address] [place] [address] Performed By: #### 1 9123-9, 07861-6, 2776- ####[facility] LABORATORYCLIA [id number] [place] [address] [place] Calcium [Mass/Vol] 9.4 mg/dL Normal 8.5-10.2 [facility] Comment on above: Order Comment: Speci men Type: BLOOD SPECIMENOrdering Facility: [facility] Address: [address] [place] [address] Performed By: #### 1 9123-9, 79959-5, 2776- ####LOPE[facility] LABORATORYCLIA [id number] [place] [address] [place] Chloride [Moles/Vol] 104 mmol/L Normal 97-105 [facility] Comment on above: Order Comment: Speci men Type: BLOOD SPECIMENOrdering Facility: [facility] Address: [address] [place] [address] Performed By: #### 1 9123-9, 68545-4, 2776- ####L[facility] LABORATORYCLIA [id number] [place] [address] [place] CO2 [Moles/Vol] 29 mmol/L Normal 22-30 [facility] Comment on above: Order Comment: Speci men Type: BLOOD SPECIMENOrdering Facility: [facility] Address: [address] [place] [address] Performed By: #### 1 9123-9, 36111-2, 2776- ####L[facility] LABORATORYCLIA [id number] [address] [place] Creatinine [Mass/Vol] 0.93 mg/dL Normal 0.58-0.96 [facility] Comment on above: Order Comment: Speci men Type: BLOOD SPECIMENOrdering Facility: [facility] Address: [address] [place] [address] Performed By: #### 1 9123-9, 10330-1, 277- ####LOPEZ LABORATORYCLIA [id number] [place] [address] [place] ESTIMATED GLOMERULAR FILTRATION RATE 69 mL/min/1.73m??? Normal >=60 [facility] Comment on above: Order Comment: Marcusprema ramey Type: BLOOD SPECIMENOrdering Facility: [facility] Address: [address] [place], [place] [address] Result Comment: Nay mated Glomerular Filtration Rate [...] actual GFR. Performed By: #### 1 9123-9, 15466-4, 27704-23 ####LOPEZ LABORATORYCLIA [id number] [place] [address] [place] Glucose [Mass/Vol] 123 mg/dL High 74-99 [facility] Comment on above: Order Comment: Brian raemy Type: BLOOD SPECIMENOrdering Facility: [facility] Address: [address] [place] [address] Result Comment: The [place] [employer] (ADA) provides guidance for cutoff [...] Standards of Medical Care in Diabetes 2016, [place] [employer]. Diabetes Care. 2016.39(Suppl 1). Performed By: #### 1 9123-9, 95686-9, 2776-10 ####LOPE[facility] LABORATORYCLIA [id number] [place] [address] [place] Potassium [Moles/Vol] 3.9 mmol/L Normal 3.7-5.1 [facility] Comment on above: Order Comment: Speci men Type: BLOOD SPECIMENOrdering Facility: [facility] Address: [address] [place] [address] Performed By: #### 1 9123-9, 86394-7, 2776- ####LOPE[facility] LABORATORYCLIA [id number] [place] [address] [place] Sodium [Moles/Vol] 141 mmol/L Normal 136-144 [facility] Comment on above: Order Comment: Speci men Type: BLOOD SPECIMENOrdering Facility: [facility] Address: [address] [place] [address] Performed By: #### 1 9123-9, 52208-8, 2776-10 ####LOPE[facility] LABORATORYCLIA [id number] [address] [place] Urea nitrogen [Mass/Vol] 9 mg/dL Normal 7-21 [facility] Comment on above: Order Comment: Speci men Type: BLOOD SPECIMENOrdering Facility: [facility] Address: [address] [place] [address] Performed By: #### 1 9123-9, 23078-8, 2776-10 ####LOPEZ LABORATORYCLIA [id number] [place] [address] [place] CBC W Auto Differential pane l (Bld)on 11-11-2022 Basophils (Bld) [#/Vol] 0.03 10*3/uL Normal <0.11 [facility] Comment on above: Order Comment: Speci men Type: BLOOD SPECIMEN [facility] Address: [address] [place] [address] Performed By: #### 5 7021-8 #### [facility] CLIA [id number] [address] [place] Basophils/100 WBC (Bld) 0.6 % Normal [facility] Comment on above: Order Comment: Speci men Type: BLOOD SPECIMEN [facility] Address: [address] [place] [address] Performed By: #### 5 7021-8 #### [facility] CLIA [id number] [address] Differential cell count method Nom (Bld) Auto Normal [facility] Comment on above: Order Comment: Speci men Type: BLOOD SPECIMEN [facility] Address: [address] [place] [address] Performed By: #### 5 7021-8 #### [facility] CLIA [id number] [address] [place] Eosinophils (Bld) [#/Vol] 0.07 10*3/uL Normal <0.46 [facility] Comment on above: Order Comment: Speci men Type: BLOOD SPECIMEN [facility] Address: [address] [place] [address] Performed By: #### 5 7021-8 #### [facility] CLIA [id number] [address] [place] Eosinophils/100 WBC (Bld) 1.5 % Normal [facility] Comment on above: Order Comment: Speci men Type: BLOOD SPECIMEN [facility] Address: [address] [place] [address] Performed By: #### 5 7021-8 #### [facility] CLIA [id number] [address] Erythrocyte distribution width (RBC) [Ratio] 12.8 % Normal 11.5-15.0 [facility] Comment on above: Order Comment: Speci men Type: BLOOD SPECIMEN [facility] Address: [address] [place] [address] Performed By: #### 5 7021-8 #### [facility] CLIA [id number] [address] [place] Hematocrit (Bld) [Volume fraction] 35.2 % Low 36.0-46.0 [facility] Comment on above: Order Comment: Speci men Type: BLOOD SPECIMEN [facility] Address: [address] [place] [address] Performed By: #### 5 7021-8 #### [facility] CLIA [id number] [address] [place] Hemoglobin (Bld) [Mass/Vol] 11.8 g/dL Normal 11.5-15.5 [facility] Comment on above: Order Comment: Speci men Type: BLOOD SPECIMEN [facility] Address: [address] [place] [address] Performed By: #### 5 7021-8 #### [facility] CLIA [id number] [address] [place] Immature granulocytes (Bld) [#/Vol] 10*3/uL Normal <0.10 [facility] Comment on above: Order Comment: Speci men Type: BLOOD SPECIMEN [facility] Address: [address] [place] [address] Performed By: #### 5 7021-8 #### [facility] CLIA [id number] [address] [place] Immature granulocytes/100 WBC (Bld) 0.4 % Normal [facility] Comment on above: Order Comment: Speci men Type: BLOOD SPECIMEN [facility] Address: [address] [place] [address] Performed By: #### 5 7021-8 #### [facility] CLIA [id number] [address] [place] [address] [place] Lymphocytes (Bld) [#/Vol] 2.21 10*3/uL Normal 1.00-4.00 [facility] Comment on above: Order Comment: Speci men Type: BLOOD SPECIMEN [facility] Address: [address] [place] [address] Performed By: #### 5 7021-8 #### [facility] CLIA [id number] [address] [place] Lymphocytes/100 WBC (Bld) 47.6 % Normal [facility] Comment on above: Order Comment: Speci men Type: BLOOD SPECIMEN [facility] Address: [address] [place] [place] [address] Performed By: #### 5 7021-8 #### [facility] CLIA [id number] [address] MCH (RBC) [Entitic mass] 33.1 pg Normal 26.0-34.0 [facility] Comment on above: Order Comment: Speci men Type: BLOOD SPECIMEN [facility] Address: [address] [place] [place] [address] Performed By: #### 5 7021-8 #### [facility] CLIA [id number] [address] MCHC (RBC) [Mass/Vol] 33.5 g/dL Normal 30.5-36.0 [facility] Comment on above: Order Comment: Speci men Type: BLOOD SPECIMEN [facility] Address: [address] [place] [place] [address] Performed By: #### 5 7021-8 #### [facility] CLIA [id number] [address] MCV (RBC) [Entitic vol] 98.9 fL Normal 80.0-100.0 [facility] Comment on above: Order Comment: Speci men Type: BLOOD SPECIMEN [facility] Address: [address] [place] [place] [address] Performed By: #### 5 7021-8 #### [facility] CLIA [id number] [address] Monocytes (Bld) [#/Vol] 0.47 10*3/uL Normal <0.87 [facility] Comment on above: Order Comment: Speci men Type: BLOOD SPECIMEN [facility] Address: [address] [place] [address] Performed By: #### 5 7021-8 #### [facility] CLIA [id number] [address] Monocytes/100 WBC (Bld) 10.1 % Normal [facility] Comment on above: Order Comment: Speci men Type: BLOOD SPECIMEN [facility] Address: [address] [place] [address] Performed By: #### 5 7021-8 #### [facility] CLIA [id number] [address] [place] Neutrophils (Bld) [#/Vol] 1.84 10*3/uL Normal 1.45-7.50 [facility] Comment on above: Order Comment: Speci men Type: BLOOD SPECIMEN [facility] Address: [address] [place] [address] Performed By: #### 5 7021-8 #### [facility] CLIA [id number] [address] Neutrophils/100 WBC (Bld) 39.8 % Normal [facility] Comment on above: Order Comment: Speci men Type: BLOOD SPECIMEN [facility] Address: [address] [place] [address] Performed By: #### 5 7021-8 #### [facility] CLIA [id number] [address] [place] [address] [place] Nucleated RBC (Bld) [#/Vol] 10*3/uL Normal <0.01 [facility] Comment on above: Order Comment: Speci men Type: BLOOD SPECIMEN [facility] Address: [address] [place] [place] [address] Performed By: #### 5 7021-8 #### [facility] CLIA [id number] [address] Nucleated RBC/100 WBC (Bld) [Ratio] 0.0 /100 WBC Normal [facility] Comment on above: Order Comment: Speci men Type: BLOOD SPECIMEN [facility] Address: [address] [place] [address] Performed By: #### 5 7021-8 #### [facility] CLIA [id number] [address] [place] Platelet mean volume (Bld) [Entitic vol] 10.5 fL Normal 9.0-12.7 [facility] Comment on above: Order Comment: Speci men Type: BLOOD SPECIMEN [facility] Address: [address] [place] [address] Performed By: #### 5 7021-8 #### [facility] CLIA [id number] [address] [place] Platelets (Bld) [#/Vol] 211 10*3/uL Normal 150-400 [facility] Comment on above: Order Comment: Speci men Type: BLOOD SPECIMEN [facility] Address: [address] [place] [address] Performed By: #### 5 7021-8 #### [facility] CLIA [id number] [address] [place] RBC (Bld) [#/Vol] 3.56 10*6/uL Low 3.90-5.20 [facility] Comment on above: Order Comment: Speci men Type: BLOOD SPECIMEN [facility] Address: [address] [place] [address] Performed By: #### 5 7021-8 #### [facility] CLIA [id number] [address] WBC (Bld) [#/Vol] 4.64 10*3/uL Normal 3.70-11.00 [facility] Comment on above: Order Comment: Speci men Type: BLOOD SPECIMEN [facility] Address: [address] [place] [address] Performed By: #### 5 7021-8 #### [facility] CLIA [id number] [address] CONSULT PROGon 11-11-2022 CONSULT PROG HNO ID: [id number] Author: Dawn Frost DO Service: Cardiovascular Medicine Author Type: Physician Type: Consult Progress Note Filed: 11/11/2022 12:41 PM Note Text: [facility] CARDIOVASCULAR MEDICINE CONSULT PROGRESS NOTE Elena Galeano [id number] PRIMARY SERVICE: MICU CONSULTING SERVICE: Cardiovascular Medicine: [...] DAILY buPR (more content not included)... Normal [facility] Magnesium [Mass/Vol] 1.9 mg/dL Normal 1.7-2.3 [facility] Comment on above: Order Comment: Speci men Type: BLOOD SPECIMENOrdering Facility: [facility] Address: [address] [address] Performed By: #### 1 9123-9, 20962-0, 277- ####[facility] LABORATORYCLIA [id number] [place] [address] [place] [facility]ate [facility] Phosphate [Mass/Vol] 4.1 mg/dL Normal 2.7-4.8 [facility] Comment on above: Order Comment: Speci men Type: BLOOD SPECIMENOrdering Facility: [facility] Address: [address] [address] Performed By: #### 1 9123-9, 85086-8, 277- ####CHARDON LABORATORYCLIA [id number] [place] [address] [place] Basic metabolic 2000 panelon 11-10-2022 Anion gap [Moles/Vol] 9 mmol/L Normal 07-11 [facility] Comment on above: Order Comment: Speci men Type: BLOOD SPECIMENOrdering Facility: [facility] Address: [address] [address] Performed By: #### 2 4321-2, 03609-2, 277- ####CHARDON LABORATORYCLIA [id number] [place] [address] [place] Calcium [Mass/Vol] 8.8 mg/dL Normal 8.5-10.2 [facility] Comment on above: Order Comment: Speci men Type: BLOOD SPECIMENOrdering Facility: [facility] Address: [address] [address] Performed By: #### 2 4321-2, , 2776-10 ####LOPEZ LABORATORYCLIA [id number] [place] [address] [place] Chloride [Moles/Vol] 105 mmol/L Normal 97-105 [facility] Comment on above: Order Comment: Speci men Type: BLOOD SPECIMENOrdering Facility: [facility] Address: [address] [address] Performed By: #### 2 4321-2, , 2776-10 ####LOPEZ LABORATORYCLIA [id number] [place] [address] [place] CO2 [Moles/Vol] 31 mmol/L High 22-30 [facility] Comment on above: Order Comment: Speci men Type: BLOOD SPECIMENOrdering Facility: [facility] Address: [address] [place] [address] Performed By: #### 2 4321-2, , 2776-10 ####LOPEZ LABORATORYCLIA [id number] [place] [address] [place] Creatinine [Mass/Vol] 0.84 mg/dL Normal 0.58-0.96 [facility] Comment on above: Order Comment: Speci men Type: BLOOD SPECIMENOrdering Facility: [facility] Address: [address] [place] [address] Performed By: #### 2 4321-2, , 2776-10 ####LOPEZ LABORATORYCLIA [id number] [address] [place] ESTIMATED GLOMERULAR FILTRATION RATE 78 mL/min/1.73m??? Normal >=60 [facility] Comment on above: Order Comment: Speci men Type: BLOOD SPECIMENOrdering Facility: [facility] Address: [address] [place] [address] Result Comment: Nay mated Glomerular Filtration Rate [...] Performed By: #### 2 4321-2, , 2776-10 ####CHARDON LABORATORYCLIA [id number] [place] [address] [place] Glucose [Mass/Vol] 111 mg/dL High 74-99 [facility] Comment on above: Order Comment: Brian ramey Type: BLOOD SPECIMENOrdering Facility: [facility] Address: [address] [id number] Result Comment: The [place] [employer] (ADA) provides guidance for cutoff [...] Standards of Medical Care in Diabetes 2016, [place] [employer]. Diabetes Care. 2016.39(Suppl 1). Performed By: #### 2 4321-2, , 2776-10 ####LOPEZ LABORATORYCLIA [id number] [place] [address] [place] Potassium [Moles/Vol] 4.4 mmol/L Normal 3.7-5.1 [facility] Comment on above: Order Comment: Brian ramey Type: BLOOD SPECIMENOrdering Facility: [facility] Address: [address] [place] [address] Performed By: #### 2 4321-2, , 2776-10 ####LOPEZ LABORATORYCLIA [id number] [place] [address] [place] Sodium [Moles/Vol] 145 mmol/L High 136-144 [facility] Comment on above: Order Comment: Speci men Type: BLOOD SPECIMENOrdering Facility: [facility] Address: [address] [address] Performed By: #### 2 4321-2, , 2776-10 ####LOPEZ LABORATORYCLIA [id number] [address] STATES [facility] Urea nitrogen [Mass/Vol] 9 mg/dL Normal 7-21 [facility] Comment on above: Order Comment: Speci men Type: BLOOD SPECIMENOrdering Facility: [facility] Address: [address] [address] Performed By: #### 2 4321-2, , 2776-10 ####LOPEZ LABORATORYCLIA [id number] [address] [place] CBC panel Auto (Bld)on 11-10 Erythrocyte distribution width (RBC) [Ratio] 13.2 % Normal 11.5-15.0 [facility] Comment on above: Order Comment: Speci men Type: BLOOD SPECIMENOrdering Facility: [facility] Address: [address] [address] Performed By: #### 5 8410-2 ####LOPEZ LABORATORYCLIA [id number] [address] [place] Hematocrit (Bld) [Volume fraction] 35.0 % Low 36.0-46.0 [facility] Comment on above: Order Comment: Speci men Type: BLOOD SPECIMENOrdering Facility: [facility] Address: [address] [address] Performed By: #### 5 8410-2 ####LOPEZ LABORATORYCLIA [id number] [address] [place] Hemoglobin (Bld) [Mass/Vol] 11.2 g/dL Low 11.5-15.5 [facility] Comment on above: Order Comment: Speci men Type: BLOOD SPECIMENOrdering Facility: [facility] Address: [address] [address] Performed By: #### 5 8410-2 ####LOPEZ LABORATORYCLIA [id number] [address] MCH (RBC) [Entitic mass] 32.3 pg Normal 26.0-34.0 [facility] Comment on above: Order Comment: Speci men Type: BLOOD SPECIMENOrdering Facility: [facility] Address: [address] [place] [address] Performed By: #### 5 8410-2 ####LOPEZ LABORATORYCLIA [id number] [address] MCHC (RBC) [Mass/Vol] 32.0 g/dL Normal 30.5-36.0 [facility] Comment on above: Order Comment: Speci men Type: BLOOD SPECIMENOrdering Facility: [facility] Address: [address] [place] [address] Performed By: #### 5 8410-2 ####LOPEZ LABORATORYCLIA [id number] [address] MCV (RBC) [Entitic vol] 100.9 fL High 80.0-100.0 [facility] Comment on above: Order Comment: Speci men Type: BLOOD SPECIMENOrdering Facility: [facility] Address: [address] [place] [address] Performed By: #### 5 8410-2 ####LOPEZ LABORATORYCLIA [id number] [address] Nucleated RBC (Bld) [#/Vol] 10*3/uL Normal <0.01 [facility] Comment on above: Order Comment: Speci men Type: BLOOD SPECIMENOrdering Facility: [facility] Address: [address] [place] [address] Performed By: #### 5 8410-2 ####LOPEZ LABORATORYCLIA [id number] [address] Platelet mean volume (Bld) [Entitic vol] 10.1 fL Normal 9.0-12.7 [facility] Comment on above: Order Comment: Speci men Type: BLOOD SPECIMENOrdering Facility: [facility] Address: [address] [place] [address] Performed By: #### 5 8410-2 ####LOPEZ LABORATORYCLIA [id number] [place] [address] [facility] [place] Platelets (Bld) [#/Vol] 206 10*3/uL Normal 150-400 [facility] Comment on above: Order Comment: Speci men Type: BLOOD SPECIMENOrdering Facility: [facility] Address: [address] [place] [address] Performed By: #### 5 8410-2 ####LOPEZ LABORATORYCLIA [id number] [place] [address] [place] RBC (Bld) [#/Vol] 3.47 10*6/uL Low 3.90-5.20 [facility] Comment on above: Order Comment: Speci men Type: BLOOD SPECIMENOrdering Facility: [facility] Address: [address] [place] [address] Performed By: #### 5 8410-2 ####CHARDON LABORATORYCLIA [id number] [address] [place] WBC (Bld) [#/Vol] 7.45 10*3/uL Normal 3.70-11.00 [facility] Comment on above: Order Comment: Speci men Type: BLOOD SPECIMENOrdering Facility: [facility] Address: [address] [place] [address] Performed By: #### 5 8410-2 ####CHARDON LABORATORYCLIA [id number] [place] [id number] [facility] CONSULTon 11-10-2022 CONSULT HNO ID: [id number] Author: Dawn Frost DO Service: Cardiovascular Medicine Author Type: Physician Type: Consults Filed: 11/10/2022 11:07 AM Note Text: [facility] CARDI[facility]ULAR [facility]ICINE CONSULT NOTE Elena Galeano [id number] PRIMARY SERVICE: MICU CONSULTING SERVICE: Cardiovascular Medicine: [...] mg tab(s) (more content not included)... Normal [facility] HISTORY PHYSICALon 3 HISTORY PHYSICAL HNO ID: [id number] Author: Miri Yee APRN.HYDRAULIC PRESS SERVICER Service: Critical Care Author Type: Nurse Practitioner Type: HANDP Filed: 11/10/2022 12:31 AM Note Text: SERVICE DATE: 11/09/2022 SERVICE TIME: 10:30 PM [facility] HISTORY AND PHYSICAL HPI: [...] Nicardipine infusion She is being admitted to [place] [facility] for further management of hypertensive urgency. [...] Musculoskeletal: Negative. (more content not included)... Normal [facility] Magnesium [facility] 11-10 Magnesium [Mass/Vol] 1.4 mg/dL Low 1.7-2.3 [facility] Comment on above: Order Comment: Speci men Type: BLOOD SPECIMENOrdering Facility: [facility] Address: [address] [phone] Performed By: #### 2 4321-2, 31642-5, 2777-1 ####CHARDON LABORATORYCLIA [id number] [place] [address] [place] Phosphate [facility] 11-10 Phosphate [Mass/Vol] 4.1 mg/dL Normal 2.7-4.8 [facility] Comment on above: Order Comment: Speci men Type: BLOOD SPECIMENOrdering Facility: [facility] Address: [address] [place], [place] [id number] Performed By: #### 2 4321-2, 29864-2, 2777-1 ####LOPEZ LABORATORYCLIA [id number] [place] [address] [facility] [place] STAPH AUREUS PCRon 3 S. aureus and MRSA panel [place]+probe (Nose) Normal Negative [facility] Comment on above: Order Comment: Speci men Type: SWAB OF INTERNAL NOSEOrdering Facility: [facility] Address: [address] [phone] Result Comment: Nega tive for Staphylococcus aureus by PCR. Negative for MRSA by PCR Performed By: #### S APCR ####[facility] LABCLIA [id number] [address] [id number] [place] ALLIED HEALTHon 11-09-2022 ALLIED HEALTH HNO ID: [id number] Author: RT Sarabjit(Herminio) Service: Radiology Author Type: Family Advocate Type: [facility] Filed: 11/09/2022 5:10 PM Note Text: [...] RT Sarabjit(Herminio) November 09, 2022 5:10 PM [facility] HEALTH HNO ID: [id number] Author: Zamzam Galindo, [place] Service: Radiology Author [...] MARIBETH November 09, 2022 3:39 PM Normal [facility] Basic metabolic 2000 panelon 11-09-2022 Anion gap [Moles/Vol] 10 mmol/L Normal 9-18 [facility] Comment on above: Order Comment: Brian ramey Type: BLOOD SPECIMENOrdering Facility: [facility] Address: [address] [place] [address] Performed By: #### L DT7843, 65042-5 ####LOPEZ LABORATORYCLIA [id number] [place] [address] [place] Calcium [Mass/Vol] 9.3 mg/dL Normal 8.5-10.2 [facility] Comment on above: Order Comment: Brian ramey Type: BLOOD SPECIMENOrdering Facility: [facility] Address: [address] [place] [address] Performed By: #### L NU4121, 78235-2 ####LOPEZ LABORATORYCLIA [id number] [place] [address] [place] Chloride [Moles/Vol] 105 mmol/L Normal 97-105 [facility] Comment on above: Order Comment: Brian ramey Type: BLOOD SPECIMENOrdering Facility: [facility] Address: [address] [place] [address] Performed By: #### L TT6650, 47720-5 ####LOPEZ LABORATORYCLIA [id number] [place] [address] [place] CO2 [Moles/Vol] 29 mmol/L Normal 22-30 [facility] Comment on above: Order Comment: Brian karoline Type: BLOOD SPECIMENOrdering Facility: [facility] Address: [address] [address] Performed By: #### L NC8491, 07705-5 ####LOPEZ LABORATORYCLIA [id number] [address] Creatinine [Mass/Vol] 0.91 mg/dL Normal 0.58-0.96 [facility] Comment on above: Order Comment: Brian karoline Type: BLOOD SPECIMENOrdering Facility: [facility] Address: [address] [address] Performed By: #### L JH1453, 22526-5 ####LOPEZ LABORATORYCLIA [id number] [address] ESTIMATED GLOMERULAR FILTRATION RATE 71 mL/min/1.73m??? Normal >=60 [facility] Comment on above: Order Comment: Brian ramey Type: BLOOD SPECIMENOrdering Facility: [facility] Address: [address] [place] [address] Result Comment: Nay mated Glomerular Filtration Rate [...] reflect actual GFR. Performed By: #### L RD1749, 76062-9 ####LOPEZ LABORATORYCLIA [id number] [address] Glucose [Mass/Vol] 90 mg/dL Normal 74-99 [facility] Comment on above: Order Comment: Brian ramey Type: BLOOD SPECIMENOrdering Facility: [facility] Address: [address] [place] [address] Result Comment: The [place] [employer] (ADA) provides guidance for cutoff [...] Standards of Medical Care in Diabetes 2016, [place] [employer]. Diabetes Care. 2016.39(Suppl 1). Performed By: #### L WI3663, 72402-0 ####LOPEZ LABORATORYCLIA [id number] [address] STATES [facility] Potassium [Moles/Vol] 4.5 mmol/L Normal 3.7-5.1 [facility] Comment on above: Order Comment: Marcusi karoline Type: BLOOD SPECIMENOrdering Facility: [facility] Address: [address] [place] [address] Performed By: #### L LC9370, 46603-4 ####LOPEZ LABORATORYCLIA [id number] [address] Sodium [Moles/Vol] 144 mmol/L Normal 136-144 [facility] Comment on above: Order Comment: Brian ramey Type: BLOOD SPECIMENOrdering Facility: [facility] Address: [address] [place] [address] Performed By: #### L LI0007, 88054-0 ####LOPEZ LABORATORYCLIA [id number] [address] STATES [facility] Urea nitrogen [Mass/Vol] 8 mg/dL Normal 7-21 [facility] Comment on above: Order Comment: Speci men Type: BLOOD SPECIMENOrdering Facility: [facility] Address: [address] [place] [address] Performed By: #### L VY3519, 57227-5 ####LOPEZ LABORATORYCLIA [id number] [address] STATES [facility] CBC W Auto Differential pane l (Bld)on 11-09-2022 Basophils (Bld) [#/Vol] 0.04 10*3/uL Normal <0.11 [facility] Comment on above: Order Comment: Speci men Type: BLOOD SPECIMENOrdering Facility: [facility] Address: [address] [address] Performed By: #### 5 7021-8 ####LOPEZ LABORATORYCLIA [id number] [address] STATES [facility] Basophils/100 WBC (Bld) 0.9 % Normal [facility] Comment on above: Order Comment: Speci men Type: BLOOD SPECIMENOrdering Facility: [facility] Address: [address] [place] [address] Performed By: #### 5 7021-8 ####LOPEZ LABORATORYCLIA [id number] [place] [address] [place] Differential cell count method Nom (Bld) Auto Normal [facility] Comment on above: Order Comment: Speci men Type: BLOOD SPECIMENOrdering Facility: [facility] Address: [address] [place] [address] Performed By: #### 5 7021-8 ####LOPEZ LABORATORYCLIA [id number] [place] [address] [place] Eosinophils (Bld) [#/Vol] 0.04 10*3/uL Normal <0.46 [facility] Comment on above: Order Comment: Speci men Type: BLOOD SPECIMENOrdering Facility: [facility] Address: [address] [place] [address] Performed By: #### 5 7021-8 ####LOPEZ LABORATORYCLIA [id number] [address] STATES [facility] Eosinophils/100 WBC (Bld) 0.9 % Normal [facility] Comment on above: Order Comment: Speci men Type: BLOOD SPECIMENOrdering Facility: [facility] Address: [address] [place] [address] Performed By: #### 5 7021-8 ####LOPEZ LABORATORYCLIA [id number] [place] [address] [place] Erythrocyte distribution width (RBC) [Ratio] 13.0 % Normal 11.5-15.0 [facility] Comment on above: Order Comment: Speci men Type: BLOOD SPECIMENOrdering Facility: [facility] Address: [address] [address] Performed By: #### 5 7021-8 ####LOPEZ LABORATORYCLIA [id number] [address] [place] Hematocrit (Bld) [Volume fraction] 36.9 % Normal 36.0-46.0 [facility] Comment on above: Order Comment: Speci men Type: BLOOD SPECIMENOrdering Facility: [facility] Address: [address] [place] [address] Performed By: #### 5 7021-8 ####LOPEZ LABORATORYCLIA [id number] [address] [place] Hemoglobin (Bld) [Mass/Vol] 12.3 g/dL Normal 11.5-15.5 [facility] Comment on above: Order Comment: Speci men Type: BLOOD SPECIMENOrdering Facility: [facility] Address: [address] [place] [address] Performed By: #### 5 7021-8 ####LOPEZ LABORATORYCLIA [id number] [address] [place] Immature granulocytes (Bld) [#/Vol] 10*3/uL Normal <0.10 [facility] Comment on above: Order Comment: Speci men Type: BLOOD SPECIMENOrdering Facility: [facility] Address: [address] [place] [address] Performed By: #### 5 7021-8 ####LOPEZ LABORATORYCLIA [id number] [address] [place] Immature granulocytes/100 WBC (Bld) 0.2 % Normal [facility] Comment on above: Order Comment: Speci men Type: BLOOD SPECIMENOrdering Facility: [facility] Address: [address] [place] [address] Performed By: #### 5 7021-8 ####LOPEZ LABORATORYCLIA [id number] [place] [address] [facility] [place] Lymphocytes (Bld) [#/Vol] 2.24 10*3/uL Normal 1.00-4.00 [facility] Comment on above: Order Comment: Speci men Type: BLOOD SPECIMENOrdering Facility: [facility] Address: [address] [place] [address] Performed By: #### 5 7021-8 ####LOPEZ LABORATORYCLIA [id number] [address] Lymphocytes/100 WBC (Bld) 48.4 % Normal [facility] Comment on above: Order Comment: Speci men Type: BLOOD SPECIMENOrdering Facility: [facility] Address: [address] [place] [address] Performed By: #### 5 7021-8 ####LOPEZ LABORATORYCLIA [id number] [address] MCH (RBC) [Entitic mass] 33.3 pg Normal 26.0-34.0 [facility] Comment on above: Order Comment: Speci men Type: BLOOD SPECIMENOrdering Facility: [facility] Address: [address] [place] [address] Performed By: #### 5 7021-8 ####LOPEZ LABORATORYCLIA [id number] [address] MCHC (RBC) [Mass/Vol] 33.3 g/dL Normal 30.5-36.0 [facility] Comment on above: Order Comment: Speci men Type: BLOOD SPECIMENOrdering Facility: [facility] Address: [address] [place] [address] Performed By: #### 5 7021-8 ####LOPEZ LABORATORYCLIA [id number] [address] MCV (RBC) [Entitic vol] 100.0 fL Normal 80.0-100.0 [facility] Comment on above: Order Comment: Speci men Type: BLOOD SPECIMENOrdering Facility: [facility] Address: [address] [place] [address] Performed By: #### 5 7021-8 ####LOPEZ LABORATORYCLIA [id number] [address] Monocytes (Bld) [#/Vol] 0.56 10*3/uL Normal <0.87 [facility] Comment on above: Order Comment: Speci men Type: BLOOD SPECIMENOrdering Facility: [facility] Address: [address] [place] [address] Performed By: #### 5 7021-8 ####LOPEZ LABORATORYCLIA [id number] [address] [place] Monocytes/100 WBC (Bld) 12.1 % Normal [facility] Comment on above: Order Comment: Speci men Type: BLOOD SPECIMENOrdering Facility: [facility] Address: [address] [place] [address] Performed By: #### 5 7021-8 ####LOPEZ LABORATORYCLIA [id number] [place] [address] [place] Neutrophils (Bld) [#/Vol] 1.74 10*3/uL Normal 1.45-7.50 [facility] Comment on above: Order Comment: Speci men Type: BLOOD SPECIMENOrdering Facility: [facility] Address: [address] [place] [address] Performed By: #### 5 7021-8 ####LOPEZ LABORATORYCLIA [id number] [address] [place] Neutrophils/100 WBC (Bld) 37.5 % Normal [facility] Comment on above: Order Comment: Speci men Type: BLOOD SPECIMENOrdering Facility: [facility] Address: [address] [place] [address] Performed By: #### 5 7021-8 ####LOPEZ LABORATORYCLIA [id number] [place] [address] [place] Nucleated RBC (Bld) [#/Vol] 10*3/uL Normal <0.01 [facility] Comment on above: Order Comment: Speci men Type: BLOOD SPECIMENOrdering Facility: [facility] Address: [address] [place] [address] Performed By: #### 5 7021-8 ####LOPEZ LABORATORYCLIA [id number] [place] [address] [place] Nucleated RBC/100 WBC (Bld) [Ratio] 0.0 /100 WBC Normal [facility] Comment on above: Order Comment: Speci men Type: BLOOD SPECIMENOrdering Facility: [facility] Address: [address] [place] [address] Performed By: #### 5 7021-8 ####LOPEZ LABORATORYCLIA [id number] [address] [place] Platelet mean volume (Bld) [Entitic vol] 10.1 fL Normal 9.0-12.7 [facility] Comment on above: Order Comment: Speci men Type: BLOOD SPECIMENOrdering Facility: [facility] Address: [address] [address] Performed By: #### 5 7021-8 ####LOPEZ LABORATORYCLIA [id number] [address] [place] Platelets (Bld) [#/Vol] 236 10*3/uL Normal 150-400 [facility] Comment on above: Order Comment: Speci men Type: BLOOD SPECIMENOrdering Facility: [facility] Address: [address] [address] Performed By: #### 5 7021-8 ####LOPEZ LABORATORYCLIA [id number] [place] [address] [place] RBC (Bld) [#/Vol] 3.69 10*6/uL Low 3.90-5.20 [facility] Comment on above: Order Comment: Speci men Type: BLOOD SPECIMENOrdering Facility: [facility] Address: [address] Performed By: #### 5 7021-8 ####LOPEZ LABORATORYCLIA [id number] [address] [place] WBC (Bld) [#/Vol] 4.63 10*3/uL Normal 3.70-11.00 [facility] Comment on above: Order Comment: Speci men Type: BLOOD SPECIMENOrdering Facility: [facility] Address: [address] [place] [address] Performed By: #### 5 7021-8 ####LOPEZ LABORATORYCLIA [id number] [address] CK TOTAL AND CK-MBon 023 CK [Catalytic activity/Vol] 149 U/L Normal 42-196 [facility] Comment on above: Order Comment: Marcusi karoline Type: BLOOD SPECIMENOrdering Facility: [facility] Address: [address] [place] [address] Performed By: #### L FL0978, 73931-5, CKCKMB, R[place] ####LOPEZ LABORATORYCLIA [id number] [address] CK.MB [Mass/Vol] 2.6 ng/mL Normal <4.4 [facility] Comment on above: Order Comment: Marcusi men Type: BLOOD SPECIMENOrdering Facility: [facility] Address: [address] [place] [address] Performed By: #### L RF5467, 00120-3, CKCKMB, [place] ####LOPEZ LABORATORYCLIA [id number] [address] CK.MB [Ratio] 170 {ratio} Normal <=4.0 [facility] Comment on above: Order Comment: Speci karoline Type: BLOOD SPECIMENOrdering Facility: [facility] Address: [address] [place] [address] Performed By: #### L [id number], 39773-3, CKCKMB, R[place] ####[facility] LABORATORYCLIA [id number] [address] BRAIN WO IVCONon 11-09-[address] BRAIN WO IVCON * * *Final Report* * * DATE OF EXAM: Nov 09 2022 3:48PM [facility] – [place] [address] - CT BRAIN WO IVCON / [...] base and imaged soft tissues are unremarkable. Email Marketing Coordinator (topogram) images: No additional findings. IMPRESSION: No intracranial hemorrhage or other acute intracranial abnormalities Mortgage Assistant: MALCOLM Transcribe Date/Time: Nov 09 2022 3:49P Dictated by : TAWNY RING DO This examination was interpreted and the report reviewed and electronically signed by: TAWNY RING DO on Nov 09 2022 3:56PM EST [id number] [facility] ED NOTEon 11-09-2022 ED NOTE HNO ID: [id number] Author: Melody Shelley RN Service: Nursing Author Type: Registered Nurse Type: ED Notes Filed: 11/09/2022 4:07 PM Note Text: Pt reports worsening pain to left upper chest into left shoulder and C/O nausea. Dr Macias aware of same. [facility] ED NOTE HNO ID: [id number] Author: Meldoy Shelley RN Service: Nursing Author Type: Registered Nurse Type: ED Notes Filed: 11/09/2022 3:56 PM Note Text: Pt has been to and from CT without change in condition. [facility] ED NOTE HNO ID: [id number] Author: Asia Cheng RN Service: ? Author Type: Registered Nurse Type: ED Notes Filed: 11/09/2022 2:30 PM Note Text: spoke with dr Cerrato about patient symptoms [facility] ED NOTE HNO ID: [id number] Author: Asia Cheng RN Service: ? Author [...] states has had symptoms since this morning, [facility] ED PROV NOTEon 11-09-2022 ED PROV NOTE HNO ID: [id number] Author: Dawn Macias DO Service: Emergency Medicine [...] of Care (more content not included)... Normal [facility] EKGon 11-09-2022 Electrocardiogram Ventricular Rate : 7 8 BPM Atrial Rate : 78 BPM P-R Interval : 184 ms QRS Duration : 92 ms Q-T Interval : 398 ms QTC Calculation(Bazett) : 453 ms Calculated P [place] : 78 degrees Calculated R [place] : 55 degrees Calculated T [place] : 43 degrees NORMAL SINUS RHYTHM WITH SINUS ARRHYTHMIA NORMAL ECG 1445 Confirmed by DAWN MACIAS DO ([id number]), social media editor MAGDIEL GILBERT ([id number]) on 11/10/2022 6:49:42 AM NAME : ELENA GALEANO PID : [id number] : 1960 Gender : Female Race : ORD : Procedure Date : Nov 09 2022 14:41:48 Edit Date : Nov 10 2022 06:49:45 Diagnosis: NORMAL SINUS RHYTHM WITH SINUS ARRHYTHMIA NORMAL ECG 1445 Confirmed by DAWN MACIAS DO ([id number]), social media editor MAGDIEL GILBERT ([id number]) on 11/10/2022 6:49:42 AM Test Reason : Location : 1 : ER ED Overread By : DAWN MACIAS DO Edited By : MAGDIEL GILBERT Referred By : , Acquired by : [id number], Normal [facility] ESR Westergren method (Bld) [Velocity]on 11-09-2022 ESR (Bld) [Velocity] 12 mm/h Normal 0-20 [facility] Comment on above: Order Comment: Speci men Type: BLOOD SPECIMENOrdering Facility: [facility] Address: [address] [place] [address] Performed By: #### 4 537-7 ####[facility] LABCLIA [id number] [facility] [id number] [place] HIGH SENSITIVITY TROPONIN T (INITIAL)on 11-09-2022 HIGH SENSITIVITY [place] 13 ng/L High <12 [facility] Comment on above: Order Comment: Brian ramey Type: BLOOD SPECIMENOrdering Facility: [facility] Address: [address] [place] [address] Result Comment: When assessing risk for acute [...] 30 day MACE. Performed By: #### L SQ4036, 93911-5 ####[facility] LABORATORYCLIA [id number] [address] [place] HIGH SENSITIVITY TROPONIN T (SECOND)on 11-09-2022 HIGH SENSITIVITY [place] 14 ng/L High <12 [facility] Comment on above: Order Comment: Brain ramey Type: BLOOD SPECIMENOrdering Facility: [facility] Address: [address] [place] [address] Result Comment: When assessing risk for acute [...] 30 day MACE. Performed By: #### L [id number] ####[facility] LABORATORYCLIA [id number] [address] [place] HIGH SENSITIVITY TROPONIN T (THIRD) 3 HRS AFTER INITIALon 11-09-2022 HIGH SENSITIVITY [place] 17 ng/L High <12 [facility] Comment on above: Order Comment: Brian ramey Type: BLOOD SPECIMENOrdering Facility: [facility] Address: [address] [place] [address] Result Comment: When assessing risk for acute [...] 30 day MACE. Performed By: #### L [id number], 93106-8, CKCKMB, [place] ####[facility] LABORATORYCLIA [id number] [address] [place] NT-proBNP [facility] Natriuretic peptide.B prohormone N-Terminal [Mass/Vol] 739 pg/mL High <125 [facility] Comment on above: Order Comment: Speci men Type: BLOOD SPECIMENOrdering Facility: [facility] Address: [address] [place] [address] Performed By: #### L IZ9515, 37958-3, CKCKMB, [place] ####[facility] LABORATORYCLIA [id number] [address] SARS-CoV-2 RNA Resp Ql NEWTON+p robeon 11-09-2022 SARS-CoV-2 (COVID-19) RNA NEWTON+probe Ql (Resp) COVID 19 RESULT: SARS-CoV-2 (Agent of COVID-19) Not Detected by RT-PCR or equivalent method. This test has been authorized by FDA under an Emergency Use Authorization (EUA). Normal [facility] Comment on above: Performed By: #### 9 4500-6 ####[facility] LABORATORYCLIA [id number] [address] [place] TROPONIN Ton 11-09-2022 Troponin T.cardiac [Mass/Vol] ug/L Normal 0.000-0.029 [facility] Comment on above: Order Comment: Speci men Type: BLOOD SPECIMENOrdering Facility: [facility] Address: [address] [place] [address] Performed By: #### L [id number], 69383-8, CKCKMB, [place] ####[facility] LABORATORYCLIA [id number] [address] Urinalysis complete panel (U )on 11-09-2022 Bacteria LM.HPF (Urine sed) [#/Area] Rare Abnormal None Seen [facility] Comment on above: Order Comment: Speci men Type: URINE SPECIMENOrdering Facility: [facility] Address: [address] [place] [address] Performed By: #### 2 4356-8 ####[facility] LABORATORYCLIA [id number] [place] [address] [place] Bilirubin Ql (U) Negative Normal Negative [facility] Comment on above: Order Comment: Speci men Type: URINE SPECIMENOrdering Facility: [facility] Address: [address] [place] [address] Performed By: #### 2 4356-8 ####[facility] LABORATORYCLIA [id number] [address] Clarity (Unsp spec) Clear Normal Clear [facility] Comment on above: Order Comment: Speci men Type: URINE SPECIMENOrdering Facility: [facility] Address: [address] [place] [address] Performed By: #### 2 4356-8 ####[facility] LABORATORYCLIA [id number] [address] Color (U) Yellow Normal Yellow [facility] Comment on above: Order Comment: Speci men Type: URINE SPECIMENOrdering Facility: [facility] Address: [address] [place] [address] Performed By: #### 2 4356-8 ####[facility] LABORATORYCLIA [id number] [address] Epithelial cells LM.HPF (Urine sed) [#/Area] Few Normal [facility] Comment on above: Order Comment: Speci men Type: URINE SPECIMENOrdering Facility: [facility] Address: [address] [place] [address] Performed By: #### 2 4356-8 ####[facility] LABORATORYCLIA [id number] [address] Glucose Test strip (U) [Mass/Vol] Negative Normal Negative [facility] Comment on above: Order Comment: Speci men Type: URINE SPECIMENOrdering Facility: [facility] Address: [address] [place] [address] Performed By: #### 2 4356-8 ####[facility] LABORATORYCLIA [id number] [place] [address] [place] Hemoglobin Ql (U) Negative Normal Negative, Trace [facility] Comment on above: Order Comment: Speci men Type: URINE SPECIMENOrdering Facility: [facility] Address: [address] [place] [address] Performed By: #### 2 4356-8 ####[facility] LABORATORYCLIA [id number] [place] [address] [place] Ketones Ql (U) Negative Normal Negative [facility] Comment on above: Order Comment: Speci men Type: URINE SPECIMENOrdering Facility: [facility] Address: [address] [place] [address] Performed By: #### 2 4356-8 ####[facility] LABORATORYCLIA [id number] [place] [address] [place] Leukocyte esterase Test strip Ql (U) Negative Normal Negative [facility] Comment on above: Order Comment: Speci men Type: URINE SPECIMENOrdering Facility: [facility] Address: [address] [place] [address] Performed By: #### 2 4356-8 ####[facility] LABORATORYCLIA [id number] [address] [place] Nitrite Ql (U) Negative Normal Negative [facility] Comment on above: Order Comment: Speci men Type: URINE SPECIMENOrdering Facility: [facility] Address: [address] [place] [address] Performed By: #### 2 4356-8 ####[facility] LABORATORYCLIA [id number] [address] [place] pH (U) 6.0 [pH] Normal 5.0-8.0 [facility] Comment on above: Order Comment: Speci men Type: URINE SPECIMENOrdering Facility: [facility] Address: [address] [place] [address] Performed By: #### 2 4356-8 ####[facility] LABORATORYCLIA [id number] [address] Protein (U) [Mass/Vol] Negative Normal Negative [facility] Comment on above: Order Comment: Speci men Type: URINE SPECIMENOrdering Facility: [facility] Address: [address] [place] [address] Performed By: #### 2 4356-8 ####[facility] LABORATORYCLIA [id number] [address] STATES [facility] RBC LM.HPF (Urine sed) [#/Area] 0-3 /HPF Normal 0-3 /HPF [facility] Comment on above: Order Comment: Speci men Type: URINE SPECIMENOrdering Facility: [facility] Address: [address] [place] [address] Performed By: #### 2 4356-8 ####[facility] LABORATORYCLIA [id number] [address] Specific gravity (U) [Rel density] 1.010 Normal 1.005-1.030 [facility] Comment on above: Order Comment: Speci men Type: URINE SPECIMENOrdering Facility: [facility] Address: [address] [place] [address] Performed By: #### 2 4356-8 ####[facility] LABORATORYCLIA [id number] [address] Urobilinogen Ql (U) 0.2 EU/dL Normal 0.2-1.0 EU/dL [facility] Comment on above: Order Comment: Speci men Type: URINE SPECIMENOrdering Facility: [facility] Address: [address] [place] [address] Performed By: #### 2 4356-8 ####[facility] LABORATORYCLIA [id number] [address] WBC LM.HPF (Urine sed) [#/Area] 0-5 /HPF Normal 0-5 /HPF [facility] Comment on above: Order Comment: Speci men Type: URINE SPECIMENOrdering Facility: [facility] Address: [place] [address] Performed By: #### 2 4356-8 ####[facility] LABORATORYCLIA [id number] [place] [address] [facility] [place] XR CHEST 1V FRONTAL PORTon [...] IMPRESSION: No acute finding on portable chest Mortgage Assistant: MALCOLM Transcribe Date/Time: Nov 09 2022 5:16P Dictated by : KESHAWN CHAVEZ MD This examination was interpreted and the report reviewed and electronically signed by: KESHAWN CHAVEZ MD on Nov 09 2022 5:18PM EST [id number] [facility] CNCOon 11-03-2022 CNCO Letter Text [facility] CASE MANAGEMon 11-02-2022 CASE MANAGEM HNO ID: [id number] Author: Yaneth Molina RN Service: ? Author [...] 2:00 PM Office Vst with Shi Morel APRN.[facility] Cardiology ([facility]) [address] [address] CAREGIVER ASSESSMENT: Caregiver is ready, willing and able to meet the patient's needs as recommended by the inter-professional team:: No Caregiver needed HANDOFF COMMUNICATION: Handoff to: Primary Care Physician Primary Care Physician Name/Phone: Dr Paredes [phone] TRANSPORTATION ARRANGEMENTS: Transportation Arrangements: Car ADDITIONAL CONTACT RESOURCES: n/a Discharge order written for pt to d/c home no needs. Pt in agreement, denies needs. Spouse to transport. SIGNATURE: Yaneth Molina RN PATIENT NAME: Elena Galeano DATE: November 02, 2022 TIME: 1:17 PM PAGER/CONTACT #: [phone] Normal [facility] CBC W Auto Differential pane l (Bld)on 11-02-2022 Basophils (Bld) [#/Vol] 0.03 10*3/uL Normal <0.11 [facility] Comment on above: Order Comment: Speci men Type: BLOOD SPECIMENOrdering Facility: [facility] Address: [address] [place] [address] Performed By: #### 5 7021-8 ####[facility] LABORATORYCLIA [id number] [place] [address] [place] [facility] Basophils/100 WBC (Bld) 0.6 % Normal [facility] Comment on above: Order Comment: Speci men Type: BLOOD SPECIMENOrdering Facility: [facility] Address: [address] [place] [address] Performed By: #### 5 7021-8 ####[facility] LABORATORYCLIA [id number] [place] [address] [place] Differential cell count method Nom (Bld) Auto Normal [facility] Comment on above: Order Comment: Speci men Type: BLOOD SPECIMENOrdering Facility: [facility] Address: [address] [place] [address] Performed By: #### 5 7021-8 ####[facility] LABORATORYCLIA [id number] [place] [address] [place] Eosinophils (Bld) [#/Vol] 0.04 10*3/uL Normal <0.46 [facility] Comment on above: Order Comment: Speci men Type: BLOOD SPECIMENOrdering Facility: [facility] Address: [address] [place] [address] Performed By: #### 5 7021-8 ####[facility] LABORATORYCLIA [id number] [address] [place] Eosinophils/100 WBC (Bld) 0.9 % Normal [facility] Comment on above: Order Comment: Speci men Type: BLOOD SPECIMENOrdering Facility: [facility] Address: [address] [place] [address] Performed By: #### 5 7021-8 ####[facility] LABORATORYCLIA [id number] [address] Erythrocyte distribution width (RBC) [Ratio] 12.8 % Normal 11.5-15.0 [facility] Comment on above: Order Comment: Speci men Type: BLOOD SPECIMENOrdering Facility: [facility] Address: [address] [place] [address] Performed By: #### 5 7021-8 ####[facility] LABORATORYCLIA [id number] [address] [place] Hematocrit (Bld) [Volume fraction] 37.4 % Normal 36.0-46.0 [facility] Comment on above: Order Comment: Speci men Type: BLOOD SPECIMENOrdering Facility: [facility] Address: [address] [place] [address] Performed By: #### 5 7021-8 ####[facility] LABORATORYCLIA [id number] [address] [place] Hemoglobin (Bld) [Mass/Vol] 12.6 g/dL Normal 11.5-15.5 [facility] Comment on above: Order Comment: Speci men Type: BLOOD SPECIMENOrdering Facility: [facility] Address: [address] [place] [address] Performed By: #### 5 7021-8 ####[facility] LABORATORYCLIA [id number] [address] [place] Immature granulocytes (Bld) [#/Vol] 10*3/uL Normal <0.10 [facility] Comment on above: Order Comment: Speci men Type: BLOOD SPECIMENOrdering Facility: [facility] Address: [address] [place] [address] Performed By: #### 5 7021-8 ####[facility] LABORATORYCLIA [id number] [address] Immature granulocytes/100 WBC (Bld) 0.2 % Normal [facility] Comment on above: Order Comment: Speci men Type: BLOOD SPECIMENOrdering Facility: [facility] Address: [address] [place] [address] Performed By: #### 5 7021-8 ####[facility] LABORATORYCLIA [id number] [address] Lymphocytes (Bld) [#/Vol] 2.18 10*3/uL Normal 1.00-4.00 [facility] Comment on above: Order Comment: Speci men Type: BLOOD SPECIMENOrdering Facility: [facility] Address: [address] [place] [address] Performed By: #### 5 7021-8 ####[facility] LABORATORYCLIA [id number] [address] Lymphocytes/100 WBC (Bld) 46.5 % Normal [facility] Comment on above: Order Comment: Speci men Type: BLOOD SPECIMENOrdering Facility: [facility] Address: [address] [place] [address] Performed By: #### 5 7021-8 ####[facility] LABORATORYCLIA [id number] [address] MCH (RBC) [Entitic mass] 33.5 pg Normal 26.0-34.0 [facility] Comment on above: Order Comment: Speci men Type: BLOOD SPECIMENOrdering Facility: [facility] Address: [address] [place] [address] Performed By: #### 5 7021-8 ####[facility] LABORATORYCLIA [id number] [address] MCHC (RBC) [Mass/Vol] 33.7 g/dL Normal 30.5-36.0 [facility] Comment on above: Order Comment: Speci men Type: BLOOD SPECIMENOrdering Facility: [facility] Address: [address] [place] [address] Performed By: #### 5 7021-8 ####[facility] LABORATORYCLIA [id number] [place] [address] [place] MCV (RBC) [Entitic vol] 99.5 fL Normal 80.0-100.0 [facility] Comment on above: Order Comment: Speci men Type: BLOOD SPECIMENOrdering Facility: [facility] Address: [address] [place] [address] Performed By: #### 5 7021-8 ####[facility] LABORATORYCLIA [id number] [address] [place] Monocytes (Bld) [#/Vol] 0.49 10*3/uL Normal <0.87 [facility] Comment on above: Order Comment: Speci men Type: BLOOD SPECIMENOrdering Facility: [facility] Address: [address] [place] [address] Performed By: #### 5 7021-8 ####[facility] LABORATORYCLIA [id number] [address] Monocytes/100 WBC (Bld) 10.4 % Normal [facility] Comment on above: Order Comment: Speci men Type: BLOOD SPECIMENOrdering Facility: [facility] Address: [address] [place] [address] Performed By: #### 5 7021-8 ####[facility] LABORATORYCLIA [id number] [place] [address] [place] Neutrophils (Bld) [#/Vol] 1.94 10*3/uL Normal 1.45-7.50 [facility] Comment on above: Order Comment: Speci men Type: BLOOD SPECIMENOrdering Facility: [facility] Address: [address] [place] [address] Performed By: #### 5 7021-8 ####[facility] LABORATORYCLIA [id number] [address] [place] Neutrophils/100 WBC (Bld) 41.4 % Normal [facility] Comment on above: Order Comment: Speci men Type: BLOOD SPECIMENOrdering Facility: [facility] Address: [address] [address] Performed By: #### 5 7021-8 ####[facility] LABORATORYCLIA [id number] [place] [address] [place] Nucleated RBC (Bld) [#/Vol] 10*3/uL Normal <0.01 [facility] Comment on above: Order Comment: Speci men Type: BLOOD SPECIMENOrdering Facility: [facility] Address: [address] [address] Performed By: #### 5 7021-8 ####[facility] LABORATORYCLIA [id number] [address] [place] Nucleated RBC/100 WBC (Bld) [Ratio] 0.0 /100 WBC Normal [facility] Comment on above: Order Comment: Speci men Type: BLOOD SPECIMENOrdering Facility: [facility] Address: [address] Performed By: #### 5 7021-8 ####[facility] LABORATORYCLIA [id number] [place] [address] [place] Platelet mean volume (Bld) [Entitic vol] 10.4 fL Normal 9.0-12.7 [facility] Comment on above: Order Comment: Speci men Type: BLOOD SPECIMENOrdering Facility: [facility] Address: [address] Performed By: #### 5 7021-8 ####[facility] LABORATORYCLIA [id number] [place] [address] [place] Platelets (Bld) [#/Vol] 199 10*3/uL Normal 150-400 [facility] Comment on above: Order Comment: Speci men Type: BLOOD SPECIMENOrdering Facility: [facility] Address: [address] [address] Performed By: #### 5 7021-8 ####L[facility]Z LABORATORYCLIA [id number] [place] [address] [place] [facility] [place] RBC (Bld) [#/Vol] 3.76 10*6/uL Low 3.90-5.20 [facility] Comment on above: Order Comment: Specprema ramey Type: BLOOD SPECIMENOrdering Facility: [facility] Address: [address] [place] [address] Performed By: #### 5 7021-8 ####[facility] LABORATORYCLIA [id number] [place] [address] [facility] WBC (Bld) [#/Vol] 4.69 10*3/uL Normal 3.70-11.00 [facility] Comment on above: Order Comment: Speci men Type: BLOOD SPECIMENOrdering Facility: [facility] Address: [address] [place] [address] Performed By: #### 5 7021-8 ####L[facility] LABORATORYCLIA [id number] [place] [id number] [facility] CNDSon 11-02-2022 CNDS HNO ID: [id number] Author: Martell Crespo MD Service: Hospital Medicine [...] Appointment When: In 1 week Fernie Paredes, [facility] [address] [place] [address] PCP Requested Referral Additional Provider to Provider [...] results. FOLLOW-UP APPOINTMENTS ALREADY SCHEDULED [facility]: Future Appointments Date Time Provider Department Center 11/09/2022 2:00 PM Shi Morel APRN.HYDRAULIC PRESS SERVICER [facility] ALLERGIES Allergen Reactions Seasonal Allergies Other: See Comments sneezing and stuffy nose DISCHARGE MEDICATION: Current Discharge Medication List START taking these (more content not included)... [facility] CONSULT PROGon 11-02-2022 CONSULT PROG HNO ID: [id number] Author: Naty Villareal MD Service: Neurology General [...] with cardiology, will be going home with cardiac nurse practitioner. Also recommend to follow-up with the stroke clinic. Naty Villareal MD Neurology Electronically signed November 02, 2022 11:27 AM [facility] Comprehensive metabolic 2000 panelon 11-02-2022 Albumin [Mass/Vol] 3.7 g/dL Low 3.9-4.9 [facility] Comment on above: Order Comment: Speci men Type: BLOOD SPECIMENOrdering Facility: [facility] Address: [address] [place] [address] [place] [address] Performed By: #### 2 4323-8 ####L[facility] LABORATORYCLIA [id number] [address] ALP [Catalytic activity/Vol] 47 U/L Normal 34-123 [facility] Comment on above: Order Comment: Speci men Type: BLOOD SPECIMENOrdering Facility: [facility] Address: [address] [address] Performed By: #### 2 4323-8 ####[facility] LABORATORYCLIA [id number] [address] [place] ALT [Catalytic activity/Vol] 24 U/L Normal 7-38 [facility] Comment on above: Order Comment: Speci men Type: BLOOD SPECIMENOrdering Facility: [facility] Address: [address] [place] [address] Performed By: #### 2 4323-8 ####L[facility] LABORATORYCLIA [id number] [address] [place] Anion gap [Moles/Vol] 11 mmol/L Normal 9-18 [facility] Comment on above: Order Comment: Speci men Type: BLOOD SPECIMENOrdering Facility: [facility] Address: [address] [place] [address] Performed By: #### 2 4323-8 ####L[facility] LABORATORYCLIA [id number] [address] AST [Catalytic activity/Vol] 30 U/L Normal 13-35 [facility] Comment on above: Order Comment: Speci men Type: BLOOD SPECIMENOrdering Facility: [facility] Address: [address] [address] Performed By: #### 2 4323-8 ####LOPE[facility] LABORATORYCLIA [id number] [address] [address] [place] Bilirubin [Mass/Vol] 0.5 mg/dL Normal 0.2-1.3 [facility] Comment on above: Order Comment: Speci men Type: BLOOD SPECIMENOrdering Facility: [facility] Address: [address] [place] [address] Performed By: #### 2 4323-8 ####LOPEZ LABORATORYCLIA [id number] [place] [address] [place] Calcium [Mass/Vol] 9.8 mg/dL Normal 8.5-10.2 [facility] Comment on above: Order Comment: Speci men Type: BLOOD SPECIMENOrdering Facility: [facility] Address: [address] [place] [address] Performed By: #### 2 4323-8 ####LOPEZ LABORATORYCLIA [id number] [place] [address] [place] Chloride [Moles/Vol] 105 mmol/L Normal 97-105 [facility] Comment on above: Order Comment: Speci men Type: BLOOD SPECIMENOrdering Facility: [facility] Address: [address] [place] [address] Performed By: #### 2 4323-8 ####LOPEZ LABORATORYCLIA [id number] [place] [address] [place] CO2 [Moles/Vol] 28 mmol/L Normal 22-30 [facility] Comment on above: Order Comment: Speci men Type: BLOOD SPECIMENOrdering Facility: [facility] Address: [address] [place] [address] Performed By: #### 2 4323-8 ####LOPEZ LABORATORYCLIA [id number] [place] [address] [place] Creatinine [Mass/Vol] 0.77 mg/dL Normal 0.58-0.96 [facility] Comment on above: Order Comment: Speci men Type: BLOOD SPECIMENOrdering Facility: [facility] Address: [address] [place] [address] Performed By: #### 2 4323-8 ####LOPEZ LABORATORYCLIA [id number] [address] [place] ESTIMATED GLOMERULAR FILTRATION RATE 86 mL/min/1.73m??? Normal >=60 [facility] Comment on above: Order Comment: Speci men Type: BLOOD SPECIMENOrdering Facility: [facility] Address: [address] [place] [address] Result Comment: Nay mated Glomerular Filtration Rate [...] actual GFR. Performed By: #### 2 4323-8 ####CHARDON LABORATORYCLIA [id number] [place] [address] [place] Glucose [Mass/Vol] 102 mg/dL High 74-99 [facility] Comment on above: Order Comment: Speci men Type: BLOOD SPECIMENOrdering Facility: [facility] Address: [place] [address] Result Comment: The [place] Diabetes [employer] (ADA) provides guidance for cutoff [...] Standards of Medical Care in Diabetes 2016, [place] [employer]. Diabetes Care. 2016.39(Suppl 1). Performed By: #### 2 4323-8 ####CHARDON LABORATORYCLIA [id number] [place] [address] [place] Potassium [Moles/Vol] 3.7 mmol/L Normal 3.7-5.1 [facility] Comment on above: Order Comment: Speci karoline Type: BLOOD SPECIMENOrdering Facility: [facility] Address: [place] [address] Performed By: #### 2 4323-8 ####LOPEZ LABORATORYCLIA [id number] [place] [address] [place] Protein [Mass/Vol] 6.4 g/dL Normal 6.3-8.0 [facility] Comment on above: Order Comment: Speci men Type: BLOOD SPECIMENOrdering Facility: [facility] Address: [address] [place] [address] Performed By: #### 2 4323-8 ####LOPEZ LABORATORYCLIA [id number] [address] Sodium [Moles/Vol] 144 mmol/L Normal 136-144 [facility] Comment on above: Order Comment: Speci men Type: BLOOD SPECIMENOrdering Facility: [facility] Address: [address] [place] [address] Performed By: #### 2 4323-8 ####LOPEZ LABORATORYCLIA [id number] [address] Urea nitrogen [Mass/Vol] 9 mg/dL Normal 7-21 [facility] Comment on above: Order Comment: Speci men Type: BLOOD SPECIMENOrdering Facility: [facility] Address: [address] [place] [address] Performed By: #### 2 4323-8 ####LOPEZ LABORATORYCLIA [id number] [address] ALLIED HEALTHon 11-01-2022 ALLIED HEALTH HNO ID: [id number] Author: FARHAT Garcia) Service: Radiology Author Type: [...] GarciaR) November 01, 2022 8:28 AM Normal [facility] CBC W Auto Differential pane l (Bld)on 11-01-2022 Basophils (Bld) [#/Vol] 0.05 10*3/uL Normal <0.11 [facility] Comment on above: Order Comment: Speci men Type: BLOOD SPECIMENOrdering Facility: [facility] Address: [address] [place] [address] Performed By: #### 5 7021-8 ####LOPEZ LABORATORYCLIA [id number] [place] [address] [place] Basophils/100 WBC (Bld) 1.0 % Normal [facility] Comment on above: Order Comment: Speci men Type: BLOOD SPECIMENOrdering Facility: [facility] Address: [address] [place] [address] Performed By: #### 5 7021-8 ####LOPEZ LABORATORYCLIA [id number] [place] [address] [place] Differential cell count method Nom (Bld) Auto Normal [facility] Comment on above: Order Comment: Speci men Type: BLOOD SPECIMENOrdering Facility: [facility] Address: [address] [place] [address] Performed By: #### 5 7021-8 ####LOPEZ LABORATORYCLIA [id number] [place] [address] [place] Eosinophils (Bld) [#/Vol] 0.07 10*3/uL Normal <0.46 [facility] Comment on above: Order Comment: Speci men Type: BLOOD SPECIMENOrdering Facility: [facility] Address: [address] [place] [address] Performed By: #### 5 7021-8 ####LOPEZ LABORATORYCLIA [id number] [address] [place] Eosinophils/100 WBC (Bld) 1.4 % Normal [facility] Comment on above: Order Comment: Speci men Type: BLOOD SPECIMENOrdering Facility: [facility] Address: [address] [place] [address] Performed By: #### 5 7021-8 ####LOPEZ LABORATORYCLIA [id number] [address] [place] Erythrocyte distribution width (RBC) [Ratio] 13.0 % Normal 11.5-15.0 [facility] Comment on above: Order Comment: Speci men Type: BLOOD SPECIMENOrdering Facility: [facility] Address: [address] [place] [address] Performed By: #### 5 7021-8 ####LOPEZ LABORATORYCLIA [id number] [place] [address] [place] Hematocrit (Bld) [Volume fraction] 39.2 % Normal 36.0-46.0 [facility] Comment on above: Order Comment: Speci men Type: BLOOD SPECIMENOrdering Facility: [facility] Address: [address] [place] [address] Performed By: #### 5 7021-8 ####LOPEZ LABORATORYCLIA [id number] [address] [place] Hemoglobin (Bld) [Mass/Vol] 12.6 g/dL Normal 11.5-15.5 [facility] Comment on above: Order Comment: Speci men Type: BLOOD SPECIMENOrdering Facility: [facility] Address: [address] [place] [address] Performed By: #### 5 7021-8 ####LOPEZ LABORATORYCLIA [id number] [address] [place] Immature granulocytes (Bld) [#/Vol] 10*3/uL Normal <0.10 [facility] Comment on above: Order Comment: Speci men Type: BLOOD SPECIMENOrdering Facility: [facility] Address: [address] [place] [address] Performed By: #### 5 7021-8 ####LOPEZ LABORATORYCLIA [id number] [address] [place] Immature granulocytes/100 WBC (Bld) 0.4 % Normal [facility] Comment on above: Order Comment: Speci men Type: BLOOD SPECIMENOrdering Facility: [facility] Address: [address] [place] [address] Performed By: #### 5 7021-8 ####LOPEZ LABORATORYCLIA [id number] [place] [address] [place] Lymphocytes (Bld) [#/Vol] 1.99 10*3/uL Normal 1.00-4.00 [facility] Comment on above: Order Comment: Speci men Type: BLOOD SPECIMENOrdering Facility: [facility] Address: [address] [place] [address] Performed By: #### 5 7021-8 ####LOPEZ LABORATORYCLIA [id number] [address] [place] Lymphocytes/100 WBC (Bld) 39.7 % Normal [facility] Comment on above: Order Comment: Speci men Type: BLOOD SPECIMENOrdering Facility: [facility] Address: [address] [place] [address] Performed By: #### 5 7021-8 ####LOPEZ LABORATORYCLIA [id number] [address] [place] MCH (RBC) [Entitic mass] 32.7 pg Normal 26.0-34.0 [facility] Comment on above: Order Comment: Speci men Type: BLOOD SPECIMENOrdering Facility: [facility] Address: [address] [place] [address] Performed By: #### 5 7021-8 ####LOPEZ LABORATORYCLIA [id number] [address] [place] MCHC (RBC) [Mass/Vol] 32.1 g/dL Normal 30.5-36.0 [facility] Comment on above: Order Comment: Speci men Type: BLOOD SPECIMENOrdering Facility: [facility] Address: [address] [place] [address] Performed By: #### 5 7021-8 ####LOPEZ LABORATORYCLIA [id number] [address] MCV (RBC) [Entitic vol] 101.8 fL High 80.0-100.0 [facility] Comment on above: Order Comment: Speci men Type: BLOOD SPECIMENOrdering Facility: [facility] Address: [address] [place], [place] [address] Performed By: #### 5 7021-8 ####LOPEZ LABORATORYCLIA [id number] [address] Monocytes (Bld) [#/Vol] 0.60 10*3/uL Normal <0.87 [facility] Comment on above: Order Comment: Speci men Type: BLOOD SPECIMENOrdering Facility: [facility] Address: [address] [place] [address] Performed By: #### 5 7021-8 ####LOPEZ LABORATORYCLIA [id number] [address] Monocytes/100 WBC (Bld) 12.0 % Normal [facility] Comment on above: Order Comment: Speci men Type: BLOOD SPECIMENOrdering Facility: [facility] Address: [address] [place] [address] Performed By: #### 5 7021-8 ####LOPEZ LABORATORYCLIA [id number] [address] Neutrophils (Bld) [#/Vol] 2.28 10*3/uL Normal 1.45-7.50 [facility] Comment on above: Order Comment: Speci men Type: BLOOD SPECIMENOrdering Facility: [facility] Address: [address] [place] [address] Performed By: #### 5 7021-8 ####LOPEZ LABORATORYCLIA [id number] [address] Neutrophils/100 WBC (Bld) 45.5 % Normal [facility] Comment on above: Order Comment: Speci men Type: BLOOD SPECIMENOrdering Facility: [facility] Address: [address] [place] [address] Performed By: #### 5 7021-8 ####LOPEZ LABORATORYCLIA [id number] [address] [place] Nucleated RBC (Bld) [#/Vol] 0.05 10*3/uL High <0.01 [facility] Comment on above: Order Comment: Speci men Type: BLOOD SPECIMENOrdering Facility: [facility] Address: [address] [place], [place] [address] [address] Performed By: #### 5 7021-8 ####LOPEZ LABORATORYCLIA [id number] [place] [address] [place] Nucleated RBC/100 WBC (Bld) [Ratio] 1.0 /100 WBC Normal [facility] Comment on above: Order Comment: Speci men Type: BLOOD SPECIMENOrdering Facility: [facility] Address: [address] [place] [address] Performed By: #### 5 7021-8 ####LOPEZ LABORATORYCLIA [id number] [place] [address] [place] Platelet mean volume (Bld) [Entitic vol] 10.4 fL Normal 9.0-12.7 [facility] Comment on above: Order Comment: Speci men Type: BLOOD SPECIMENOrdering Facility: [facility] Address: [address] [place] [place] [address] Performed By: #### 5 7021-8 ####LOPEZ LABORATORYCLIA [id number] [place] [address] [place] Platelets (Bld) [#/Vol] 209 10*3/uL Normal 150-400 [facility] Comment on above: Order Comment: Speci men Type: BLOOD SPECIMENOrdering Facility: [facility] Address: [address] [place] [address] Performed By: #### 5 7021-8 ####LOPEZ LABORATORYCLIA [id number] [place] [address] [place] RBC (Bld) [#/Vol] 3.85 10*6/uL Low 3.90-5.20 [facility] Comment on above: Order Comment: Speci men Type: BLOOD SPECIMENOrdering Facility: [facility] Address: [address] Performed By: #### 5 7021-8 ####LOPEZ LABORATORYCLIA [id number] [place] [address] [place] WBC (Bld) [#/Vol] 5.01 10*3/uL Normal 3.70-11.00 [facility] Comment on above: Order Comment: Speci men Type: BLOOD SPECIMENOrdering Facility: [facility] Address: [place] [address] Performed By: #### 5 7021-8 ####CHARDON LABORATORYCLIA [id number] [place] [address] [place] CNCOon 11-01-2022 CNCO Letter Text Normal [facility] CONSULTon 11-01-2022 CONSULT HNO ID: [id number] Author: Gregory Brown DO Service: Cardiovascular Medicine Author Type: Physician Type: Consults Filed: 11/01/2022 1:47 PM Note Text: CONSULT NOTE SERVICE DATE: 11/01/2022 SERVICE TIME: 1130 PHYSICIAN CONSULT Consult performed by: Gregory Brown DO Consult ordered by: Martell Crespo MD [...] by mouth (more content not included)... Normal [facility] Comprehensive metabolic 2000 panelon 11-01-2022 Albumin [Mass/Vol] 3.4 g/dL Low 3.9-4.9 [facility] Comment on above: Order Comment: Speci men Type: BLOOD SPECIMENOrdering Facility: [facility] Address: [address] [place], [place] [address] Performed By: #### 2 4331-1, ####CHARDON LABORATORYCLIA [id number] [place] [address] [place] [facility] ALP [Catalytic activity/Vol] 49 U/L Normal 34-123 [facility] Comment on above: Order Comment: Speci men Type: BLOOD SPECIMENOrdering Facility: [facility] Address: [address] [place] [address] Performed By: #### 2 4331-, ####CHARDON LABORATORYCLIA [id number] [address] STATES OF [facility] ALT [Catalytic activity/Vol] 23 U/L Normal 7-38 [facility] Comment on above: Order Comment: Speci men Type: BLOOD SPECIMENOrdering Facility: [facility] Address: [address] [place] [address] Performed By: #### 2 4331-1, 79552-5 ####LOPEZ LABORATORYCLIA [id number] [place] [address] [place] Anion gap [Moles/Vol] 21 mmol/L High 9-18 [facility] Comment on above: Order Comment: Speci men Type: BLOOD SPECIMENOrdering Facility: [facility] Address: [address] [place] [address] Performed By: #### 2 4331-1, ####LOPEZ LABORATORYCLIA [id number] [place] [address] [place] AST [Catalytic activity/Vol] Normal [facility] Comment on above: Order Comment: Speci men Type: BLOOD SPECIMENOrdering Facility: [facility] Address: [address] [place] [address] Result Comment: Unab le to assay due to interference from hemolysis. Suggest reorder as clinically indicated. Performed By: #### 2 433-1, 61197-6 ####LOPEZ LABORATORYCLIA [id number] [place] [address] [place] Bilirubin [Mass/Vol] 0.5 mg/dL Normal 0.2-1.3 [facility] Comment on above: Order Comment: Speci men Type: BLOOD SPECIMENOrdering Facility: [facility] Address: [address] [place] [address] Performed By: #### 2 433-1, ####LOPEZ LABORATORYCLIA [id number] [address] [place] Calcium [Mass/Vol] 9.3 mg/dL Normal 8.5-10.2 [facility] Comment on above: Order Comment: Speci men Type: BLOOD SPECIMENOrdering Facility: [facility] Address: [address] [place] [address] Performed By: #### 2 4331-1, 78294-8 ####LOPEZ LABORATORYCLIA [id number] [address] STATES [facility] Chloride [Moles/Vol] 105 mmol/L Normal 97-105 [facility] Comment on above: Order Comment: Speci men Type: BLOOD SPECIMENOrdering Facility: [facility] Address: [address] [place] [address] Performed By: #### 2 4331-1, ####LOPEZ LABORATORYCLIA [id number] [place] [address] [place] CO2 [Moles/Vol] 14 mmol/L Low 22-30 [facility] Comment on above: Order Comment: Speci men Type: BLOOD SPECIMENOrdering Facility: [facility] Address: [address] [place] [address] Performed By: #### 2 4331-1, ####LOPEZ LABORATORYCLIA [id number] [address] Creatinine [Mass/Vol] 0.80 mg/dL Normal 0.58-0.96 [facility] Comment on above: Order Comment: Speci men Type: BLOOD SPECIMENOrdering Facility: [facility] Address: [address] [place] [address] Performed By: #### 2 4331-1, ####LOPEZ LABORATORYCLIA [id number] [address] ESTIMATED GLOMERULAR FILTRATION RATE 82 mL/min/1.73m??? Normal >=60 [facility] Comment on above: Order Comment: Speci men Type: BLOOD SPECIMENOrdering Facility: [facility] Address: [address] [place] [address] Result Comment: Nay mated Glomerular Filtration Rate [...] Performed By: #### 2 4331-1, ####LOPEZ LABORATORYCLIA [id number] [place] [address] [place] Glucose [Mass/Vol] 113 mg/dL High 74-99 [facility] Comment on above: Order Comment: Brian ramey Type: BLOOD SPECIMENOrdering Facility: [facility] Address: [address] [place] [address] Result Comment: The [place] Diabetes [employer] (ADA) provides guidance for cutoff [...] Standards of Medical Care in Diabetes 2016, [place] [employer]. Diabetes Care. 2016.39(Suppl 1). Performed By: #### 2 4331-1, 11858-2 ####LOPEZ LABORATORYCLIA [id number] [place] [address] [place] Potassium [Moles/Vol] 4.3 mmol/L Normal 3.7-5.1 [facility] Comment on above: Order Comment: Brian ramey Type: BLOOD SPECIMENOrdering Facility: [facility] Address: [address] [place] [address] Performed By: #### 2 4331-1, 90746-6 ####LOPEZ LABORATORYCLIA [id number] [place] [address] [place] Protein [Mass/Vol] 6.6 g/dL Normal 6.3-8.0 [facility] Comment on above: Order Comment: Brian ramey Type: BLOOD SPECIMENOrdering Facility: [facility] Address: [address] [place] [address] Performed By: #### 2 4331-1, 89242-9 ####LOPEZ LABORATORYCLIA [id number] [place] [address] [place] Sodium [Moles/Vol] 140 mmol/L Normal 136-144 [facility] Comment on above: Order Comment: Speci men Type: BLOOD SPECIMENOrdering Facility: [facility] Address: [address] [place] [id number] Performed By: #### 2 4331-1, 78829-6 ####CHARDON LABORATORYCLIA [id number] [place] [id number] [facility] Urea nitrogen [Mass/Vol] 12 mg/dL Normal 7-21 [facility] Comment on above: Order Comment: Speci men Type: BLOOD SPECIMENOrdering Facility: [facility] Address: [place] [address] Performed By: #### 2 4331-1, 29739-9 ####CHARDON LABORATORYCLIA [id number] [place] [id number] [facility] ECHOon 11-01-2022 Echocardiography Echocardiography Report: Transthoracic Echo [facility] Date of service: 11/01/2022 9:10:22 AM Ordering physician: ELANA GARCIA Indication: Stroke Technologist: Blanquita Torres [facility] Interpreting physician: Deondre Lorenz MD PATIENT: Name: [...] * * * Final * * * [facility] : [id number] [id number] Normal [facility] Lipid 1996 panelon 3 Cholesterol [Mass/Vol] 150 mg/dL Normal <200 [facility] Comment on above: Order Comment: Speci men Type: BLOOD SPECIMENOrdering Facility: [facility] Address: [address] [place] [address] Result Comment: <200 mg/dL, Desirable 200-239 mg/dL, Borderline high >239 mg/dL, High Performed By: #### 2 4331-1, 20733-2 ####CHARDON LABORATORYCLIA [id number] [place], [place] [address] [place] [address] OF [facility] Cholesterol in HDL [Mass/Vol] 61 mg/dL Normal >39 [facility] Comment on above: Order Comment: Speci men Type: BLOOD SPECIMENOrdering Facility: [facility] Address: [address] [place] [address] Result Comment: 40-5 9 mg/dL, Acceptable >59 mg/dL, High: Negative risk factor for coronary heart disease <40 mg/dL, Low: Positive risk factor for coronary heart disease Performed By: #### 2 4331-1, 78637-2 ####LOPEZ LABORATORYCLIA [id number] [address] Cholesterol in LDL [Mass/Vol] 31 mg/dL Normal <100 [facility] Comment on above: Order Comment: Brian karoline Type: BLOOD SPECIMENOrdering Facility: [facility] Address: [address] [place] [address] Result Comment: <100 mg/dL, Optimal 100-129 mg/dL, Near optimal/above optimal 130-159 mg/dL, Borderline high 160-189 mg/dL, High >189 mg/dL, Very high Secondary prevention optimal LDL Cholesterol levels are recommended to be < 70 mg/dL Performed By: #### 2 4331-1, 62507-9 ####LOPEZ LABORATORYCLIA [id number] [address] Cholesterol in LDL/Cholesterol in HDL [Mass ratio] 0.51 {ratio} Normal <2.54 [facility] Comment on above: Order Comment: Brian ramey Type: BLOOD SPECIMENOrdering Facility: [facility] Address: [address] [place] [address] Result Comment: Refe rence: 1. National Cholesterol Education Program ATP III Guideline At-A-Glance Quick Desk Reference: National Heart, Lung, and Blood [place]. National Institutes of Health. 2001: NIH Publication No. 01-3305. 2. An International Atherosclerosis Society position paper: global recommendations for the management of dyslipidemia: executive summary, Atherosclerosis. 2014: 232(2):410-413. Performed By: #### 2 4331-, ####LOPEZ LABORATORYCLIA [id number] [address] Cholesterol in VLDL [Mass/Vol] 58 mg/dL High <30 [facility] Comment on above: Order Comment: Brian karoline Type: BLOOD SPECIMENOrdering Facility: [facility] Address: [address] [place] [address] Performed By: #### 2 4331-, ####LOPEZ LABORATORYCLIA [id number] [address] [place] Cholesterol non HDL [Mass/Vol] 89 mg/dL Normal <130 [facility] Comment on above: Order Comment: Speci men Type: BLOOD SPECIMENOrdering Facility: [facility] Address: [address] [place] [address] Result Comment: <130 mg/dL, Optimal 130-159 mg/dL, Near optimal/above optimal 160-189 mg/dL, Borderline high 190-219 mg/dL, High >219 mg/dL, Very high Secondary prevention optimal non HDL Cholesterol levels are recommended to be <100 mg/dL Performed By: #### 2 4331-1, 12579-1 ####LOPEZ LABORATORYCLIA [id number] [address] Cholesterol.total/Ch olesterol in HDL [Mass ratio] 2.46 {ratio} Normal <5.10 [facility] Comment on above: Order Comment: Speci men Type: BLOOD SPECIMENOrdering Facility: [facility] Address: [address] [place] [address] Performed By: #### 2 4331-1, ####LOPEZ LABORATORYCLIA [id number] [address] FASTING TIME 10 hrs Normal [facility] Comment on above: Order Comment: Speci men Type: BLOOD SPECIMENOrdering Facility: [facility] Address: [address] [place] [address] Performed By: #### 2 4331-1, 83689-4 ####LOPEZ LABORATORYCLIA [id number] [address] Triglyceride [Mass/Vol] 289 mg/dL High <150 [facility] Comment on above: Order Comment: Speci men Type: BLOOD SPECIMENOrdering Facility: [facility] Address: [address] [place] [address] Result Comment: <150 mg/dL, Normal 150-199 mg/dL, Borderline high 200-499 mg/dL, High >499 mg/dL, Very high Performed By: #### 2 4331-1, 87021-4 ####LOPEZ LABORATORYCLIA [id number] [address] MRI BRAIN WO IVCONon 023 MRI BRAIN WO IVCON * * *Final Report* * * DATE OF EXAM: Nov 01 2022 8:39AM [facility] 0294 - MRI BRAIN WO IVCON / [...] lacunar infarct right frontal periventricular white matter. Mortgage Assistant: MALCOLM Transcribe Date/Time: Nov 01 2022 8:51A Dictated by : SALUD BHATIA MD This examination was interpreted and the report reviewed and electronically signed by: SALUD BHATIA MD on Nov 01 2022 8:54AM EST [id number] [facility] THERAPY NTon 11-01-2022 THERAPY NT HNO ID: [id number] Author: Libertad Molina OT/L Service: Occupational Therapy Author Type: Occupational Therapist Type: Therapy (PT/OT/Speech/Resp) Filed: 11/01/2022 3:02 PM Note Text: Occupational Therapy Evaluation SERVICE DATE: 11/01/2022 SERVICE TIME: 1355 to 1433 ROOM: [place] [address] Recommended Discharge Disposition: Outpatient Occupational Therapy ([facility]) Anticipated Discharge Needs: Supervision at [...] without AD. 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 [facility] THERAPY NT HNO ID: [id number] Author: Kae Angela, PT Service: Physical Therapy Author Type: Physical Therapist Type: Therapy (PT/OT/Speech/Resp) Filed: 11/01/2022 10:17 AM Note Text: PHYSICAL THERAPY MISSED VISIT SERVICE DATE: 11/01/2022 SERVICE TIME: 1009 to 1010 ROOM: [place] [address] Patient not seen due to No Skilled Needs (Pt observed ambulating independently in room, reports mobility at baseline except eye. Pt reports no PT needs, order to be discontinued, services remain available if pt condition changes. Pt is + CVA.). SIGNATURE: Kae Angela PT PATIENT NAME: Elena Galeano DATE: November 01, 2022 TIME: 10:17 AM [facility] ALLIED HEALTHon 10-31-2022 ALLIED HEALTH HNO ID: [id number] Author: Nan Angel RT(R) Service: Radiology Author [...] Angel Rvt October 31, 2022 9:24 AM [facility] CASE MGT INIT ASSESon 2022 CASE MGT INIT [facility] HNO ID: [id number] Author: Blanquita Barboza RN Service: Behavioral Health Author Type: Registered Nurse Type: Care Mgt Initial Assessment Filed: 10/31/2022 2:20 PM Note Text: CARE MANAGEMENT: ASSESSMENT AND DISCHARGE PLAN SERVICE DATE: October 31, 2022 SERVICE TIME: 2:17 PM PRIMARY CARE PHYSICIAN: Fernie Paredes DO Confirmed with patient. Primary Contact: Extended Emergency Contact Information Primary Emergency Contact: Ashu Galeano Address: [address] [place] [id number] [place] Mobile Relation: Spouse ADMISSION STATUS: Observation Insurance Provider: [facility] [employer] NEEDS PRIOR TO DISCHARGE Needs Prior to Discharge: To Be Determined;OT/PT Evaluation POTENTIAL TRANSITION PLANS Home;To Be Determined Based on clinical judgement, Care Management will address the following needs: No transitional/discharge planning needs at this time Patient's perception of need for this admission: sudden loss of vision to left eye ADVANCE DIRECTIVES Current Advance Directive: Health Care Power of Speed Runner;Living Will In Chart: No MS/BEHAVIOR Baseline Mental [...] discharge within 30 days: No PATIENT SCREEN Patient/Core Mounter Stated Goals: To have reduction in symptoms;To [...] Completely I feel financially burdened by my tbi-gy-zvvdxj expenses for my prescription medication:: 0 - Disagree Completely Risk Score: 0 Patient is categorized as: Low risk < 2 SOCIAL Living Arrangements: Home Lives With: Spouse Financial Resources: Retired Supportive Patient Contact:: Yes Contact Resources: Family Family Name/Phone: Ashu Briseno [phone] Is Patient Psychosocially Complex?: No Contact Resources: Family Family Name/Phone: Ashu Briseno [phone] Health Literacy How often do you need [...] None Has the Patient Been in a Fpc Facility in the Past 30 days?: No FREEDOM OF CHOICE EXPLAINED: [place] of Choice Given: No Reason Not Given: Unable to complete with this assessment - revisit Are you interested in bedside delivery of your medications? No Preferred outpatient pharmacy is [facility] (more content not included)... Normal [facility] CBC W Auto Differential pane l (Bld)on 10-31-2022 Basophils (Bld) [#/Vol] 0.04 10*3/uL Normal <0.11 [facility] Comment on above: Order Comment: Speci men Type: BLOOD SPECIMENOrdering Facility: [facility] Address: [address] [address] Performed By: #### 5 7021-8 ####[facility] LABORATORYCLIA [id number] [place] [address] [place] Basophils/100 WBC (Bld) 0.6 % Normal [facility] Comment on above: Order Comment: Brian men Type: BLOOD SPECIMENOrdering Facility: [facility] Address: [address] [place] [address] Performed By: #### 5 7021-8 ####LOPEZ LABORATORYCLIA [id number] [address] Differential cell count method Nom (Bld) Auto Normal [facility] Comment on above: Order Comment: Speci men Type: BLOOD SPECIMENOrdering Facility: [facility] Address: [address] [place] [address] Performed By: #### 5 7021-8 ####LOPEZ LABORATORYCLIA [id number] [place] [address] [place] Eosinophils (Bld) [#/Vol] 0.05 10*3/uL Normal <0.46 [facility] Comment on above: Order Comment: Speci men Type: BLOOD SPECIMENOrdering Facility: [facility] Address: [address] [place] [address] Performed By: #### 5 7021-8 ####LOPEZ LABORATORYCLIA [id number] [address] [place] Eosinophils/100 WBC (Bld) 0.8 % Normal [facility] Comment on above: Order Comment: Speci men Type: BLOOD SPECIMENOrdering Facility: [facility] Address: [address] [place] [address] Performed By: #### 5 7021-8 ####LOPEZ LABORATORYCLIA [id number] [address] [place] Erythrocyte distribution width (RBC) [Ratio] 12.8 % Normal 11.5-15.0 [facility] Comment on above: Order Comment: Speci men Type: BLOOD SPECIMENOrdering Facility: [facility] Address: [address] [place] [address] Performed By: #### 5 7021-8 ####LOPEZ LABORATORYCLIA [id number] [address] [place] Hematocrit (Bld) [Volume fraction] 36.3 % Normal 36.0-46.0 [facility] Comment on above: Order Comment: Speci men Type: BLOOD SPECIMENOrdering Facility: [facility] Address: [address] [place] [address] Performed By: #### 5 7021-8 ####LOPEZ LABORATORYCLIA [id number] [place] [address] [place] Hemoglobin (Bld) [Mass/Vol] 12.2 g/dL Normal 11.5-15.5 [facility] Comment on above: Order Comment: Speci men Type: BLOOD SPECIMENOrdering Facility: [facility] Address: [address] [address] Performed By: #### 5 7021-8 ####LOPEZ LABORATORYCLIA [id number] [place] [address] [place] Immature granulocytes (Bld) [#/Vol] 10*3/uL Normal <0.10 [facility] Comment on above: Order Comment: Speci men Type: BLOOD SPECIMENOrdering Facility: [facility] Address: [address] [place] [address] Performed By: #### 5 7021-8 ####LOPEZ LABORATORYCLIA [id number] [address] [place] Immature granulocytes/100 WBC (Bld) 0.3 % Normal [facility] Comment on above: Order Comment: Speci men Type: BLOOD SPECIMENOrdering Facility: [facility] Address: [address] [address] Performed By: #### 5 7021-8 ####LOPEZ LABORATORYCLIA [id number] [place] [address] [place] Lymphocytes (Bld) [#/Vol] 2.21 10*3/uL Normal 1.00-4.00 [facility] Comment on above: Order Comment: Speci men Type: BLOOD SPECIMENOrdering Facility: [facility] Address: [address] [address] Performed By: #### 5 7021-8 ####LOPEZ LABORATORYCLIA [id number] [place] [address] [place] [facility] [place] Lymphocytes/100 WBC (Bld) 33.5 % Normal [facility] Comment on above: Order Comment: Speci men Type: BLOOD SPECIMENOrdering Facility: [facility] Address: [address] [address] Performed By: #### 5 7021-8 ####LOPEZ LABORATORYCLIA [id number] [address] MCH (RBC) [Entitic mass] 33.1 pg Normal 26.0-34.0 [facility] Comment on above: Order Comment: Speci men Type: BLOOD SPECIMENOrdering Facility: [facility] Address: [address] [place] [address] Performed By: #### 5 7021-8 ####LOPEZ LABORATORYCLIA [id number] [address] MCHC (RBC) [Mass/Vol] 33.6 g/dL Normal 30.5-36.0 [facility] Comment on above: Order Comment: Speci men Type: BLOOD SPECIMENOrdering Facility: [facility] Address: [address] [place] [address] Performed By: #### 5 7021-8 ####LOPEZ LABORATORYCLIA [id number] [address] MCV (RBC) [Entitic vol] 98.4 fL Normal 80.0-100.0 [facility] Comment on above: Order Comment: Speci men Type: BLOOD SPECIMENOrdering Facility: [facility] Address: [address] [place] [address] Performed By: #### 5 7021-8 ####LOPEZ LABORATORYCLIA [id number] [address] Monocytes (Bld) [#/Vol] 0.74 10*3/uL Normal <0.87 [facility] Comment on above: Order Comment: Speci men Type: BLOOD SPECIMENOrdering Facility: [facility] Address: [address] [place] [address] Performed By: #### 5 7021-8 ####LOPEZ LABORATORYCLIA [id number] [address] Monocytes/100 WBC (Bld) 11.2 % Normal [facility] Comment on above: Order Comment: Speci men Type: BLOOD SPECIMENOrdering Facility: [facility] Address: [address] [place] [address] Performed By: #### 5 7021-8 ####LOPEZ LABORATORYCLIA [id number] [place] [address] [place] Neutrophils (Bld) [#/Vol] 3.53 10*3/uL Normal 1.45-7.50 [facility] Comment on above: Order Comment: Speci men Type: BLOOD SPECIMENOrdering Facility: [facility] Address: [address] [place] [address] Performed By: #### 5 7021-8 ####LOPEZ LABORATORYCLIA [id number] [place] [address] [place] Neutrophils/100 WBC (Bld) 53.6 % Normal [facility] Comment on above: Order Comment: Speci men Type: BLOOD SPECIMENOrdering Facility: [facility] Address: [address] [place] [address] Performed By: #### 5 7021-8 ####LOPEZ LABORATORYCLIA [id number] [place] [address] [place] Nucleated RBC (Bld) [#/Vol] 10*3/uL Normal <0.01 [facility] Comment on above: Order Comment: Speci men Type: BLOOD SPECIMENOrdering Facility: [facility] Address: [address] [place] [address] Performed By: #### 5 7021-8 ####LOPEZ LABORATORYCLIA [id number] [address] [place] Nucleated RBC/100 WBC (Bld) [Ratio] 0.0 /100 WBC Normal [facility] Comment on above: Order Comment: Speci men Type: BLOOD SPECIMENOrdering Facility: [facility] Address: [address] [place] [address] Performed By: #### 5 7021-8 ####LOPEZ LABORATORYCLIA [id number] [place] [address] [place] Platelet mean volume (Bld) [Entitic vol] 10.6 fL Normal 9.0-12.7 [facility] Comment on above: Order Comment: Speci men Type: BLOOD SPECIMENOrdering Facility: [facility] Address: [address] [place] [address] Performed By: #### 5 7021-8 ####LOPEZ LABORATORYCLIA [id number] [place] [id number] [facility] [place] Platelets (Bld) [#/Vol] 206 10*3/uL Normal 150-400 [facility] Comment on above: Order Comment: Brian ramey Type: BLOOD SPECIMENOrdering Facility: [facility] Address: [address] [place] [address] Performed By: #### 5 7021-8 ####LOPEZ LABORATORYCLIA [id number] [place] [address] [place] RBC (Bld) [#/Vol] 3.69 10*6/uL Low 3.90-5.20 [facility] Comment on above: Order Comment: Brian ramey Type: BLOOD SPECIMENOrdering Facility: [facility] Address: [address] [place] [address] Performed By: #### 5 7021-8 ####[facility] LABORATORYCLIA [id number] [place] [address] [place] WBC (Bld) [#/Vol] 6.59 10*3/uL Normal 3.70-11.00 [facility] Comment on above: Order Comment: Brian ramey Type: BLOOD SPECIMENOrdering Facility: [facility] Address: [address] [place] [address] Performed By: #### 5 7021-8 ####CHARDON LABORATORYCLIA [id number] [place] [id number] [facility] CONSULTon 10-31-2022 CONSULT HNO ID: [id number] Author: Ariel Jean Baptiste MD Service: Neurology General Author Type: Physician Type: Consults Filed: 10/31/2022 8:44 AM Note Text: [facility] TeleNeurology Consult Note Patient seen using Tel[facility]rology [facility]. Recommendations are placed in the chart. Please review. For questions after hours, when teleneurologist is not available, for [facility]: Please Page [phone] for the [facility] from 12pm to 8Am [...] ED. Patient was subsequently transferred to an airline lounge receptionist who after examining her scented to the [place] ER for evaluation of central retinal artery [...] , Taking? , Authorizing Provider Sean Pablo APRN.HYDRAULIC PRESS SERVICER Medication meloxicam (MOBIC) 15 mg tablet, Sig [...] acebutolol (SE (more content not included)... Normal [facility] Comprehensive metabolic 2000 panelon 10-31-2022 Albumin [Mass/Vol] 3.6 g/dL Low 3.9-4.9 [facility] Comment on above: Order Comment: Speci men Type: BLOOD SPECIMENOrdering Facility: [facility] Address: [address] [place] [address] Performed By: #### 2 4323-8 ####LOPEZ LABORATORYCLIA [id number] [address] STATES OF [facility] ALP [Catalytic activity/Vol] 49 U/L Normal 34-123 [facility] Comment on above: Order Comment: Speci men Type: BLOOD SPECIMENOrdering Facility: [facility] Address: [address] [place] [address] Performed By: #### 2 4323-8 ####LOPEZ LABORATORYCLIA [id number] [address] STATES [facility] ALT [Catalytic activity/Vol] 25 U/L Normal 7-38 [facility] Comment on above: Order Comment: Speci men Type: BLOOD SPECIMENOrdering Facility: [facility] Address: [address] [address] Performed By: #### 2 4323-8 ####LOPEZ LABORATORYCLIA [id number] [address] STATES [facility] Anion gap [Moles/Vol] 10 mmol/L Normal 9-18 [facility] Comment on above: Order Comment: Speci men Type: BLOOD SPECIMENOrdering Facility: [facility] Address: [address] [address] Performed By: #### 2 4323-8 ####LOPEZ LABORATORYCLIA [id number] [place] [address] [place] AST [Catalytic activity/Vol] 30 U/L Normal 13-35 [facility] Comment on above: Order Comment: Speci men Type: BLOOD SPECIMENOrdering Facility: [facility] Address: [address] [place] [address] Performed By: #### 2 4323-8 ####LOPEZ LABORATORYCLIA [id number] [place] [address] [place] Bilirubin [Mass/Vol] 0.4 mg/dL Normal 0.2-1.3 [facility] Comment on above: Order Comment: Speci men Type: BLOOD SPECIMENOrdering Facility: [facility] Address: [address] [place] [address] Performed By: #### 2 4323-8 ####LOPEZ LABORATORYCLIA [id number] [place] [address] [place] Calcium [Mass/Vol] 9.3 mg/dL Normal 8.5-10.2 [facility] Comment on above: Order Comment: Speci men Type: BLOOD SPECIMENOrdering Facility: [facility] Address: [address] [place] [address] Performed By: #### 2 4323-8 ####LOPEZ LABORATORYCLIA [id number] [place] [address] [place] Chloride [Moles/Vol] 101 mmol/L Normal 97-105 [facility] Comment on above: Order Comment: Speci men Type: BLOOD SPECIMENOrdering Facility: [facility] Address: [address] [place] [address] Performed By: #### 2 4323-8 ####LOPEZ LABORATORYCLIA [id number] [place] [address] [place] CO2 [Moles/Vol] 30 mmol/L Normal 22-30 [facility] Comment on above: Order Comment: Speci men Type: BLOOD SPECIMENOrdering Facility: [facility] Address: [address] [place] [address] Performed By: #### 2 4323-8 ####LOPEZ LABORATORYCLIA [id number] [address] [place] Creatinine [Mass/Vol] 0.85 mg/dL Normal 0.58-0.96 [facility] Comment on above: Order Comment: Brian armey Type: BLOOD SPECIMENOrdering Facility: [facility] Address: [facility] [place] [place] [address] Performed By: #### 2 4323-8 ####CHARDON LABORATORYCLIA [id number] [address] ESTIMATED GLOMERULAR FILTRATION RATE 77 mL/min/1.73m??? Normal >=60 [facility] Comment on above: Order Comment: Brian ramey Type: BLOOD SPECIMENOrdering Facility: [facility] Address: [address] [place] [address] Result Comment: Nay mated Glomerular Filtration Rate [...] Performed By: #### 2 4323-8 ####LOPE[facility] LABORATORYCLIA [id number] [address] [place] Glucose [Mass/Vol] 133 mg/dL High 74-99 [facility] Comment on above: Order Comment: Brian karoline Type: BLOOD SPECIMENOrdering Facility: [facility] Address: [address] [place] [address] Result Comment: The [place] [employer] (ADA) provides guidance for cutoff [...] Standards of Medical Care in Diabetes 2016, [place] [employer]. Diabetes Care. 2016.39(Suppl 1). Performed By: #### 2 4323-8 ####LOPEZ LABORATORYCLIA [id number] [address] [place] Potassium [Moles/Vol] 3.6 mmol/L Low 3.7-5.1 [facility] Comment on above: Order Comment: Speci men Type: BLOOD SPECIMENOrdering Facility: [facility] Address: [address] [place] [address] Performed By: #### 2 4323-8 ####LOPEZ LABORATORYCLIA [id number] [address] [place] Protein [Mass/Vol] 6.1 g/dL Low 6.3-8.0 [facility] Comment on above: Order Comment: Speci men Type: BLOOD SPECIMENOrdering Facility: [facility] Address: [address] [place] [address] Performed By: #### 2 4323-8 ####LOPEZ LABORATORYCLIA [id number] [address] STATES [facility] Sodium [Moles/Vol] 141 mmol/L Normal 136-144 [facility] Comment on above: Order Comment: Speci men Type: BLOOD SPECIMENOrdering Facility: [facility] Address: [address] [place] [address] Performed By: #### 2 4323-8 ####LOPEZ LABORATORYCLIA [id number] [address] [place] Urea nitrogen [Mass/Vol] 14 mg/dL Normal 7-21 [facility] Comment on above: Order Comment: Speci men Type: BLOOD SPECIMENOrdering Facility: [facility] Address: [address] [place] [address] Performed By: #### 2 4323-8 ####LOPEZ LABORATORYCLIA [id number] [address] [place] HISTORY PHYSICALon HISTORY PHYSICAL HNO ID: [id number] Author: Elana Garcia MD Service: Hospital Medicine Author Type: Physician Type: HANDP Filed: 10/31/2022 12:30 AM Note Text: DEPARTMENT OF HOSPITAL MEDICINE HISTORY AND PHYSICAL EXAM SERVICE DATE: 10/31/2022 Code Status: Not on file SERVICE TIME: 12:30 AM Primary Care Physician: Fernie Paredes, DO NIGHT AND WEEKEND COVERAGE: [place] COVERAGE: Days: [phone], please page attending physician. Nights: [phone], please page [place] [facility] Night coverage pager [phone]. Subjective CHIEF COMPLAINT: Left eye vision loss [...] ED. Patient was subsequently transferred to an airline lounge receptionist who after examining her scented to the [place] ER for evaluation of central retinal artery [...] 09/28/2022), Disp: 9 (more content not included)... [facility] THERAPY NTon 10-31-2022 THERAPY NT HNO ID: [id number] Author: Gaby Quick PT Service: Physical Therapy Author Type: Physical Therapist Type: Therapy (PT/OT/Speech/Resp) Filed: 10/31/2022 9:18 AM Note Text: PHYSICAL THERAPY MISSED VISIT SERVICE DATE: 10/31/2022 SERVICE TIME: 915 to 915 ROOM: [place] [address] Patient not seen due to Hold: Clinical Appropriateness. Pt with 24 hour bedrest orders starting 10/31 @ 0030. Most recent BP 216/106. Will re-attempt once bedrest orders are discontinued. SIGNATURE: Gaby Quick PT PATIENT NAME: Elena Galeano DATE: October 31, 2022 TIME: 9:16 AM [facility] US CAROTID BILon 10-31-2022 US CAROTID JAILENE [...] left internal carotid artery by NASCET criteria. Mortgage Assistant: MALCOLM Transcribe Date/Time: Oct 31 2022 9:42A Dictated by : SKYLER ROY MD This examination was interpreted and the report reviewed and electronically signed by: SKYLER ROY MD on Oct 31 2022 9:44AM EST [id number] [facility] XR CHEST 1V FRONTAL PORTon 0 10-31-2022 [...] acute intrathoracic findings. Chronic obstructive pulmonary disease. Mortgage Assistant: MALCOLM Transcribe Date/Time: Oct 31 2022 2:11A Dictated by : KAN PORRAS MD This examination was interpreted and the report reviewed and electronically signed by: AKN PORRAS MD on Oct 31 2022 2:13AM EST [id number] [facility] ALLIED HEALTHon 10-30-2022 ALLIED HEALTH HNO ID: [id number] Author: MARIBETH Stanton Service: Radiology Author Type: [...] October 30, 2022 TIME: 3:24 PM Normal [facility] Basic metabolic 2000 panelon 10-30-2022 Anion gap [Moles/Vol] 9 mmol/L Normal 9-18 [facility] Comment on above: Order Comment: Speci men Type: BLOOD SPECIMENOrdering Facility: [facility] Address: [address] [place] [address] Performed By: #### 1 988-5, 32045-8 ####LOPEZ LABORATORYCLIA [id number] [place] [address] [place] Calcium [Mass/Vol] 9.7 mg/dL Normal 8.5-10.2 [facility] Comment on above: Order Comment: Speci men Type: BLOOD SPECIMENOrdering Facility: [facility] Address: [address] [place] [address] Performed By: #### 1 988-5, 62856-5 ####LOPEZ LABORATORYCLIA [id number] [place] [address] [place] Chloride [Moles/Vol] 100 mmol/L Normal 97-105 [facility] Comment on above: Order Comment: Speci men Type: BLOOD SPECIMENOrdering Facility: [facility] Address: [address] [place] [address] Performed By: #### 1 988-5, 45301-8 ####LOPEZ LABORATORYCLIA [id number] [place] [address] [place] CO2 [Moles/Vol] 32 mmol/L High 22-30 [facility] Comment on above: Order Comment: Speci men Type: BLOOD SPECIMENOrdering Facility: [facility] Address: [address] [place] [address] Performed By: #### 1 988-5, 99233-3 ####LOPEZ LABORATORYCLIA [id number] [place] [address] [place] Creatinine [Mass/Vol] 0.77 mg/dL Normal 0.58-0.96 [facility] Comment on above: Order Comment: Speci men Type: BLOOD SPECIMENOrdering Facility: [facility] Address: [address] [place] [address] Performed By: #### 1 988-5, 27493-1 ####LOPEZ LABORATORYCLIA [id number] [address] ESTIMATED GLOMERULAR FILTRATION RATE 86 mL/min/1.73m??? Normal >=60 [facility] Comment on above: Order Comment: Brian ramey Type: BLOOD SPECIMENOrdering Facility: [facility] Address: [address] [place] [address] Result Comment: Nay mated Glomerular Filtration Rate [...] actual GFR. Performed By: #### 1 988-5, 86162-2 ####LOPEZ LABORATORYCLIA [id number] [address] [place] Glucose [Mass/Vol] 96 mg/dL Normal 74-99 [facility] Comment on above: Order Comment: Brian ramey Type: BLOOD SPECIMENOrdering Facility: [facility] Address: [address] [place] [address] Result Comment: The [place] [employer] (ADA) provides guidance for cutoff [...] Standards of Medical Care in Diabetes 2016, [place] [employer]. Diabetes Care. 2016.39(Suppl 1). Performed By: #### 1 988-5, 57320-2 ####[facility] LABORATORYCLIA [id number] [address] [place] Potassium [Moles/Vol] 4.5 mmol/L Normal 3.7-5.1 [facility] Comment on above: Order Comment: Speci men Type: BLOOD SPECIMENOrdering Facility: [facility] Address: [address] [address] Performed By: #### 1 988-5, 60390-6 ####[facility] LABORATORYCLIA [id number] [address] STATES [facility] Sodium [Moles/Vol] 141 mmol/L Normal 136-144 [facility] Comment on above: Order Comment: Speci men Type: BLOOD SPECIMENOrdering Facility: [facility] Address: [address] [place] [address] Performed By: #### 1 988-5, 88979-0 ####[facility] LABORATORYCLIA [id number] [address] STATES [facility] Urea nitrogen [Mass/Vol] 11 mg/dL Normal 7-21 [facility] Comment on above: Order Comment: Speci men Type: BLOOD SPECIMENOrdering Facility: [facility] Address: [address] [place] [address] Performed By: #### 1 988-5, 91952-5 ####[facility]ORATORYCLIA [id number] [address] [place] CBC W Auto Differential pane l (Bld)on 10-30-2022 Basophils (Bld) [#/Vol] 0.04 10*3/uL Normal <0.11 [facility] Comment on above: Order Comment: Speci men Type: BLOOD SPECIMENOrdering Facility: [facility] Address: [address] [address] Performed By: #### 5 7021-8 ####[facility] LABORATORYCLIA [id number] [address] Basophils/100 WBC (Bld) 0.6 % Normal [facility] Comment on above: Order Comment: Speci men Type: BLOOD SPECIMENOrdering Facility: [facility] Address: [address] [address] Performed By: #### 5 7021-8 ####[facility] LABORATORYCLIA [id number] [address] Differential cell count method Nom (Bld) Auto Normal [facility] Comment on above: Order Comment: Speci men Type: BLOOD SPECIMENOrdering Facility: [facility] Address: [address] [address] Performed By: #### 5 7021-8 ####[facility] LABORATORYCLIA [id number] [place] [address] [place] Eosinophils (Bld) [#/Vol] 0.03 10*3/uL Normal <0.46 [facility] Comment on above: Order Comment: Speci men Type: BLOOD SPECIMENOrdering Facility: [facility] Address: [address] [place] [address] Performed By: #### 5 7021-8 ####[facility] LABORATORYCLIA [id number] [address] STATES [facility] Eosinophils/100 WBC (Bld) 0.4 % Normal [facility] Comment on above: Order Comment: Speci men Type: BLOOD SPECIMENOrdering Facility: [facility] Address: [address] [place] [address] Performed By: #### 5 7021-8 ####[facility] LABORATORYCLIA [id number] [address] Erythrocyte distribution width (RBC) [Ratio] 12.7 % Normal 11.5-15.0 [facility] Comment on above: Order Comment: Speci men Type: BLOOD SPECIMENOrdering Facility: [facility] Address: [address] [address] Performed By: #### 5 7021-8 ####[facility] LABORATORYCLIA [id number] [address] Hematocrit (Bld) [Volume fraction] 39.9 % Normal 36.0-46.0 [facility] Comment on above: Order Comment: Speci men Type: BLOOD SPECIMENOrdering Facility: [facility] Address: [address] [address] Performed By: #### 5 7021-8 ####[facility] LABORATORYCLIA [id number] [address] [place] Hemoglobin (Bld) [Mass/Vol] 13.4 g/dL Normal 11.5-15.5 [facility] Comment on above: Order Comment: Speci men Type: BLOOD SPECIMENOrdering Facility: [facility] Address: [address] [place] [address] Performed By: #### 5 7021-8 ####[facility] LABORATORYCLIA [id number] [place] [address] [place] Immature granulocytes (Bld) [#/Vol] 10*3/uL Normal <0.10 [facility] Comment on above: Order Comment: Speci men Type: BLOOD SPECIMENOrdering Facility: [facility] Address: [address] [place] [address] Performed By: #### 5 7021-8 ####[facility] LABORATORYCLIA [id number] [address] [place] Immature granulocytes/100 WBC (Bld) 0.1 % Normal [facility] Comment on above: Order Comment: Speci men Type: BLOOD SPECIMENOrdering Facility: [facility] Address: [address] [place] [address] Performed By: #### 5 7021-8 ####[facility] LABORATORYCLIA [id number] [place] [address] [place] Lymphocytes (Bld) [#/Vol] 2.40 10*3/uL Normal 1.00-4.00 [facility] Comment on above: Order Comment: Speci men Type: BLOOD SPECIMENOrdering Facility: [facility] Address: [address] [address] Performed By: #### 5 7021-8 ####[facility] LABORATORYCLIA [id number] [address] [place] Lymphocytes/100 WBC (Bld) 33.4 % Normal [facility] Comment on above: Order Comment: Speci men Type: BLOOD SPECIMENOrdering Facility: [facility] Address: [address] [place] [address] Performed By: #### 5 7021-8 ####[facility] LABORATORYCLIA [id number] [address] MCH (RBC) [Entitic mass] 32.6 pg Normal 26.0-34.0 [facility] Comment on above: Order Comment: Speci men Type: BLOOD SPECIMENOrdering Facility: [facility] Address: [address] [place] [address] Performed By: #### 5 7021-8 ####[facility] LABORATORYCLIA [id number] [address] [place] MCHC (RBC) [Mass/Vol] 33.6 g/dL Normal 30.5-36.0 [facility] Comment on above: Order Comment: Speci men Type: BLOOD SPECIMENOrdering Facility: [facility] Address: [address] [place] [address] Performed By: #### 5 7021-8 ####[facility] LABORATORYCLIA [id number] [address] STATES [facility] MCV (RBC) [Entitic vol] 97.1 fL Normal 80.0-100.0 [facility] Comment on above: Order Comment: Speci men Type: BLOOD SPECIMENOrdering Facility: [facility] Address: [address] [place] [address] Performed By: #### 5 7021-8 ####[facility] LABORATORYCLIA [id number] [address] [place] Monocytes (Bld) [#/Vol] 0.59 10*3/uL Normal <0.87 [facility] Comment on above: Order Comment: Speci men Type: BLOOD SPECIMENOrdering Facility: [facility] Address: [address] [place] [address] Performed By: #### 5 7021-8 ####[facility] LABORATORYCLIA [id number] [address] Monocytes/100 WBC (Bld) 8.2 % Normal [facility] Comment on above: Order Comment: Speci men Type: BLOOD SPECIMENOrdering Facility: [facility] Address: [address] [address] Performed By: #### 5 7021-8 ####[facility] LABORATORYCLIA [id number] [address] [place] Neutrophils (Bld) [#/Vol] 4.12 10*3/uL Normal 1.45-7.50 [facility] Comment on above: Order Comment: Speci men Type: BLOOD SPECIMENOrdering Facility: [facility] Address: [address] [place] [address] Performed By: #### 5 7021-8 ####[facility] LABORATORYCLIA [id number] [address] Neutrophils/100 WBC (Bld) 57.3 % Normal [facility] Comment on above: Order Comment: Speci men Type: BLOOD SPECIMENOrdering Facility: [facility] Address: [address] [place] [address] Performed By: #### 5 7021-8 ####[facility] LABORATORYCLIA [id number] [place] [address] [place] Nucleated RBC (Bld) [#/Vol] 10*3/uL Normal <0.01 [facility] Comment on above: Order Comment: Speci men Type: BLOOD SPECIMENOrdering Facility: [facility] Address: [address] [place] [address] Performed By: #### 5 7021-8 ####[facility] LABORATORYCLIA [id number] [address] [place] Nucleated RBC/100 WBC (Bld) [Ratio] 0.0 /100 WBC Normal [facility] Comment on above: Order Comment: Speci men Type: BLOOD SPECIMENOrdering Facility: [facility] Address: [address] [place] [address] Performed By: #### 5 7021-8 ####[facility] LABORATORYCLIA [id number] [address] [place] Platelet mean volume (Bld) [Entitic vol] 9.8 fL Normal 9.0-12.7 [facility] Comment on above: Order Comment: Speci men Type: BLOOD SPECIMENOrdering Facility: [facility] Address: [address] [place] [address] Performed By: #### 5 7021-8 ####[facility] LABORATORYCLIA [id number] [address] [place] Platelets (Bld) [#/Vol] 220 10*3/uL Normal 150-400 [facility] Comment on above: Order Comment: Speci men Type: BLOOD SPECIMENOrdering Facility: [facility] Address: [address] [address] Performed By: #### 5 7021-8 ####[facility] LABORATORYCLIA [id number] [place] [address] [place] RBC (Bld) [#/Vol] 4.11 10*6/uL Normal 3.90-5.20 [facility] Comment on above: Order Comment: Speci men Type: BLOOD SPECIMENOrdering Facility: [facility] Address: [address] [place] [address] Performed By: #### 5 7021-8 ####[facility] LABORATORYCLIA [id number] [address] [place] WBC (Bld) [#/Vol] 7.19 10*3/uL Normal 3.70-11.00 [facility] Comment on above: Order Comment: Speci men Type: BLOOD SPECIMENOrdering Facility: [facility] Address: [address] [place], [place] [address] Performed By: #### 5 7021-8 ####[facility] LABORATORYCLIA [id number] [address] [place] CRP SerPl-mCncon 10-30-2022 CRP [Mass/Vol] 0.4 mg/dL Normal <0.9 [facility] Comment on above: Order Comment: Speci men Type: BLOOD SPECIMENOrdering Facility: [facility] Address: [address] [place] [address] Performed By: #### 1 988-5, 31114-2 ####L[facility] LABORATORYCLIA [id number] [place] [address] [place] BRAIN ATTACK WO IVCONon 0 10-30-2022 CT BRAIN ATTACK WO IVCON * * *Final Report* * * DATE OF EXAM: Oct 30 2022 3:22PM [facility] [place] [address] - CT BRAIN ATTACK WO IVCON [...] MD; on 10/30/2022 at 3:17 PM. CR_1 Mortgage Assistant: MALCOLM Transcribe Date/Time: Oct 30 2022 3:23P Dictated by : RAMÍREZ MATTHEWS MD This examination was interpreted and the report reviewed and electronically signed by: RAMÍREZ MATTHEWS MD on Oct 30 2022 3:26PM EST [id number] CRITICAL!! Invalid Interpretation Code [facility] CTA HEAD W IVCONon 3 CTA HEAD W IVCON * * *Final Report* * * DATE OF EXAM: Oct 30 2022 3:30PM [facility] – [place] [address] - CTA HEAD W IVCON / [...] the distal left P2 segment. The right FLAME PLANER is patent. Bilateral SCA, AICA, and PICA are patent. Arachnoid granulations present in the bilateral transverse venous sinuses, greater on the right than the left. Visualized dural venous sinuses are patent. Email Marketing Coordinator (topogram) images: No additional findings. IMPRESSION: No [...] Concordance between software and imaging review: Concordant. Mortgage Assistant: MALCOLM Transcribe Date/Time: Oct 30 2022 3:36P Dictated by : ALEM PAGAN DO This examination was interpreted and the report reviewed and electronically signed by: RAMÍREZ MATTHEWS MD on Oct 30 2022 4:10PM EST [id number] [facility] CTA NECK W IVCONon 3 CTA NECK W IVCON * * *Final Report* * * DATE OF EXAM: Oct 30 2022 3:30PM [facility] – [place] [address] - CTA NECK W IVCON / [...] the distal left P2 segment. The right FLAME PLANER is patent. Bilateral SCA, AICA, and PICA are patent. Arachnoid granulations present in the bilateral transverse venous sinuses, greater on the right than the left. Visualized dural venous sinuses are patent. Email Marketing Coordinator (topogram) images: No additional findings. IMPRESSION: No [...] Concordance between software and imaging review: Concordant. Mortgage Assistant: MALCOLM Transcribe Date/Time: Oct 30 2022 3:36P Dictated by : ALEM PAGAN DO This examination was interpreted and the report reviewed and electronically signed by: RAMÍREZ MATTHEWS MD on Oct 30 2022 4:10PM EST [id number] [facility] ED NOTEon 10-30-2022 ED NOTE HNO ID: [id number] Author: Haley Thomas RN Service: ? Author Type: Registered Nurse Type: ED Notes Filed: 10/30/2022 8:59 PM Note Text: 1930: Per Dr. Macias no need for Q1h neuro checks [facility] ED NOTE HNO ID: [id number] Author: Asia Cheng RN Service: ? Author Type: Registered Nurse Type: ED Notes Filed: 10/30/2022 3:46 PM Note Text: pt made stroke protocol per [facility] ED NOTE HNO ID: [id number] Author: Asia Cheng RN Service: ? Author Type: Registered Nurse Type: ED Notes Filed: 10/30/2022 3:37 PM Note Text: dr in room to talk with pt and call stroke alert [facility] ED NOTE HNO ID: [id number] Author: Yumiko Pineda RN Service: ? Author Type: Registered Nurse Type: ED Notes Filed: 10/30/2022 2:23 PM Note Text: Pt was working on computer around 11 am. Pt got up and loss all vision in lt eye. Pt was seen at [facility], then sent to eye dr. Pt states eye dr snyder there is a blood clot in lt eye and she needed to go to [facility] for possible stroke in lt eye [facility] ED PROV NOTEon 10-30-2022 ED PROV NOTE HNO ID: [id number] Author: Dawn Macias DO Service: Emergency Medicine Author Type: Physician Type: ED Provider Notes Filed: 10/30/2022 9:17 PM Note Text: ED Provider Note Patient Name: Eelna Galeano : 1960 SERVICE DATE: 10/30/22 History [...] age and (more content not included)... Normal [facility] EKGon 10-30-2022 Electrocardiogram Ventricular Rate : 6 0 BPM Atrial Rate : 60 BPM P-R Interval : 184 ms QRS Duration : 88 ms Q-T Interval : 446 ms QTC Calculation(Bazett) : 446 ms Calculated P [place] : 67 degrees Calculated R [place] : 43 degrees Calculated T [place] : 61 degrees NORMAL SINUS RHYTHM NORMAL ECG 1516 Confirmed by DAWN MACIAS DO ([id number]), social media editor MAGDIEL GILBERT ([id number]) on 10/31/2022 1:19:48 PM NAME : ELENA GALEANO PID : [id number] : 1960 Gender : Female Race : ORD : Procedure Date : Oct 30 2022 15:13:12 Edit Date : Oct 31 2022 13:19:51 Diagnosis: NORMAL SINUS RHYTHM NORMAL ECG 1516 Confirmed by DAWN MACIAS DO ([id number]), social media editor MAGDIEL GILBERT ([id number]) on 10/31/2022 1:19:48 PM Test Reason : Location : 1 : ER ED Overread By : DAWN MACIAS DO Edited By : MAGDIEL GILBERT Referred By : , Acquired by : YURIY, Normal [facility] ESR Westergren method (Bld) [Velocity]on 10-30-2022 ESR (Bld) [Velocity] 14 mm/h Normal 0-20 [facility] Comment on above: Order Comment: Brian ramey Type: BLOOD SPECIMENOrdering Facility: [facility] Address: [address] [place] [address] Performed By: #### 5 5454-3, 4537-7 ####[facility] LABCLIA [id number] [facility] [id number] [place] [address] [place] HbA1c (Bld)on 10-30-2022 Average glucose Estimated from glycated hemoglobin (Bld) [Mass/Vol] 114 mg/dL [facility] Comment on above: Order Comment: Brian ramey Type: BLOOD SPECIMENOrdering Facility: [facility] Address: [address] [id number] Result Comment: eAG: (Estimated average glucose) is a calculated value from HgbA1c and is sales solutions representative of the average blood glucose level in the last 2-3 month period. Performed By: #### 5 5454-3, 4537-7 ####[facility] LABCLIA [id number] [address] [place] HbA1c (Bld) [Mass fraction] 5.6 % Normal 4.3-5.6 [facility] Comment on above: Order Comment: Brian ramey Type: BLOOD SPECIMENOrdering Facility: [facility] Address: [address] [address] Result Comment: [place] Diabetes Association guidelines indicate that patients with HgbA1c in the range 5.7-6.4% are at increased risk for development of diabetes, and intervention by lifestyle modification may be beneficial. HgbA1c greater or equal to 6.5% is considered diagnostic of diabetes. Performed By: #### 5 5454-3, 45377 ####[facility] LABCLIA [id number] [address] [id number] [place] PT panel Coag (PPP)on 2022 INR Coag (PPP) [Relative time] 1.0 {INR} Normal 0.9-1.3 [facility] Comment on above: Order Comment: Brian ramey Type: BLOOD SPECIMENOrdering Facility: [facility] Address: [address] [place] [address] Result Comment: Raven min K Antagonist (VKA) Therapeutic Range: INR 2 to 3 (Target INR of 2.5) Note: For patients treated with VKA drugs, such as warfarin, the [place] [employer] 2012 Guideline recommends [...] Chest 2012, 141:7S-47S Celia RA, et al. [facility] 2017, 70: 252-289 Performed By: #### 3 4528-0 ####[facility] LABORATORYCLIA [id number] [place] [address] [facility] PT Coag (PPP) [Time] 10.1 s Normal 9.7-13.0 [facility] Comment on above: Order Comment: Speci men Type: BLOOD SPECIMENOrdering Facility: [facility] Address: [place] [address] Performed By: #### 3 4528-0 ####[facility] LABORATORYCLIA [id number] [address] Provider Note - ED v3on Provider [...] SIGNS: T PRBP SpO2O2(LPM) %FiO2 Method 30-Oct-2022 12:22:00-36.92777444/6 3 95 room air, no respiratory support MDM MDM/ED COURSE: Medical Decision Making: Patient appears well nontoxic. Complete left eye vision loss. Spoke with airline lounge receptionist Dr. Lyles who advised her to come [...] Other Providers: I discussed the patient/results with: [place] Former Dr. Lyles. DISPOSITION Diagnosis/Annotation: ED Dx Name:Vision loss Code:H54.7 Disposition: discharged Type: home CONSULT CRITICAL CARE TIME Is this a critically ill patient: no Electronic Signatures: Larry Ervin) (Signed 30-Oct-2022 12:29) Authored: ED Notes, HPI, PMH, PE, Results/Vital Signs, MDM/ED Course, Clinical Impression, Attestation, Chart Review, Scores Last Updated: 30-Oct-2022 12:29 by Larry Ervin) [facility] Risk Screen - Adult Emergenc yon 10-30-2022 [...] Communicatenone Learning Preferencesaudio Cultural Considerationsnone Developmental Considerationsnone Hoahaoism Considerationsnone Learning Assessment (Other Learner): Learning Assessment (Other Learner): Other learner availableno Pressure Injury/TB/Substance: Pressure Injury: Do you have a coughno Smoking Statusformer smoker Alcohol Useoccasionally Drug Usedenies Admission Risk Screen: Significant IndicatorsComplete CAGE: CAGE: Is this an injured patient at a Trauma Center ([facility]/[place]): no Electronic Signatures: Mitali Byrd (REINIER) (Signed 30-Oct-2022 12:26) Authored: Preferred Language, Patient Preferred Pharmacy, Advanced Directives, Family Violence Adult, Learning Assessment (Patient), Learning Assessment (Other Learner), Pressure Injury/TB/Substance, Pressure Injury, CAGE Last Updated: 30-Oct-2022 12:26 by Mitali Byrd (REINIER) [facility] SARS-CoV-2 RNA Resp Ql NEWTON+p robeon 10-30-2022 SARS-CoV-2 (COVID-19) RNA NEWTON+probe Ql (Resp) COVID 19 RESULT: SARS-CoV-2 (Agent of COVID-19) Not Detected by RT-PCR or equivalent method. This test has been authorized by FDA under an Emergency Use Authorization (EUA). 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 and the vision [...] Updated: 30-Oct-2022 12:25 by Mitali Byrd (REINIER) [facility] Urinalysis complete panel (U )on 10-30-2022 Bacteria LM.HPF (Urine sed) [#/Area] Few Abnormal None Seen [facility] Comment on above: Order Comment: Speci men Type: URINE SPECIMENOrdering Facility: [facility] Address: [address] [place] [address] Performed By: #### 2 4356-8 ####[facility] LABORATORYCLIA [id number] [address] Bilirubin Ql (U) Negative Normal Negative [facility] Comment on above: Order Comment: Speci men Type: URINE SPECIMENOrdering Facility: [facility] Address: [address] [place] [address] Performed By: #### 2 4356-8 ####[facility] LABORATORYCLIA [id number] [address] Clarity (Unsp spec) Clear Normal Clear [facility] Comment on above: Order Comment: Speci men Type: URINE SPECIMENOrdering Facility: [facility] Address: [address] [place] [address] Performed By: #### 2 4356-8 ####[facility] LABORATORYCLIA [id number] [address] Color (U) Yellow Normal Yellow [facility] Comment on above: Order Comment: Speci men Type: URINE SPECIMENOrdering Facility: [facility] Address: [address] [place] [address] Performed By: #### 2 4356-8 ####[facility] LABORATORYCLIA [id number] [place] [address] [place] Epithelial cells LM.HPF (Urine sed) [#/Area] Few Normal [facility] Comment on above: Order Comment: Speci men Type: URINE SPECIMENOrdering Facility: [facility] Address: [address] [address] Performed By: #### 2 4356-8 ####[facility] LABORATORYCLIA [id number] [place] [address] [place] Glucose Test strip (U) [Mass/Vol] Negative Normal Negative [facility] Comment on above: Order Comment: Speci men Type: URINE SPECIMENOrdering Facility: [facility] Address: [address] [place] [address] Performed By: #### 2 4356-8 ####[facility] LABORATORYCLIA [id number] [place] [address] [place] Hemoglobin Ql (U) Negative Normal Negative, Trace [facility] Comment on above: Order Comment: Speci men Type: URINE SPECIMENOrdering Facility: [facility] Address: [address] [place] [address] Performed By: #### 2 4356-8 ####[facility] LABORATORYCLIA [id number] [place] [address] [place] Ketones Ql (U) Negative Normal Negative [facility] Comment on above: Order Comment: Speci men Type: URINE SPECIMENOrdering Facility: [facility] Address: [address] [place] [address] Performed By: #### 2 4356-8 ####[facility] LABORATORYCLIA [id number] [place] [address] [place] [facility] [place] Leukocyte esterase Test strip Ql (U) Negative Normal Negative [facility] Comment on above: Order Comment: Speci men Type: URINE SPECIMENOrdering Facility: [facility] Address: [address] [place] [address] Performed By: #### 2 4356-8 ####[facility] LABORATORYCLIA [id number] [address] Nitrite Ql (U) Negative Normal Negative [facility] Comment on above: Order Comment: Speci men Type: URINE SPECIMENOrdering Facility: [facility] Address: [address] [place] [address] Performed By: #### 2 4356-8 ####[facility] LABORATORYCLIA [id number] [address] pH (U) 7.0 [pH] Normal 5.0-8.0 [facility] Comment on above: Order Comment: Speci men Type: URINE SPECIMENOrdering Facility: [facility] Address: [address] [place] [address] Performed By: #### 2 4356-8 ####[facility]ORATORYCLIA [id number] [address] Protein (U) [Mass/Vol] Negative Normal Negative [facility] Comment on above: Order Comment: Speci men Type: URINE SPECIMENOrdering Facility: [facility] [facility] Address: [address] [place] [address] Performed By: #### 2 4356-8 ####LOPEZ LABORATORYCLIA [id number] [address] RBC LM.HPF (Urine sed) [#/Area] 0-3 /HPF Normal 0-3 /HPF [facility] Comment on above: Order Comment: Speci men Type: URINE SPECIMENOrdering Facility: [facility] Address: [address] [place] [address] Performed By: #### 2 4356-8 ####LOPEZ LABORATORYCLIA [id number] [address] Specific gravity (U) [Rel density] 1.010 Normal 1.005-1.030 [facility] Comment on above: Order Comment: Speci men Type: URINE SPECIMENOrdering Facility: [facility] Address: [address] [address] Performed By: #### 2 4356-8 ####LOPEZ LABORATORYCLIA [id number] [address] [place] [facility] Urobilinogen Ql (U) 0.2 EU/dL Normal 0.2-1.0 EU/dL [facility] Comment on above: Order Comment: Speci men Type: URINE SPECIMENOrdering Facility: [facility] Address: [address] [address] Performed By: #### 2 4356-8 ####LOPEZ LABORATORYCLIA [id number] [address] [place] WBC LM.HPF (Urine sed) [#/Area] 0-5 /HPF Normal 0-5 /HPF [facility] Comment on above: Order Comment: Speci men Type: URINE SPECIMENOrdering Facility: [facility] Address: [address] [address] Performed By: #### 2 4356-8 ####CHARDON LABORATORYCLIA [id number] [address] [place] CBC AND ELECTRONIC DIFFon Basophils (Bld) [#/Vol] K/uL 0.00 - 0.15 K/uL [facility] Basophils/100 WBC (Bld) 0.5 % [facility] Differential cell count method Nom (Bld) Electronic Differential [facility] Eosinophils (Bld) [#/Vol] 0.09 10*3/uL 0.00 - 0.42 K/uL [facility] Eosinophils/100 WBC (Bld) 1.5 % [facility] Erythrocyte distribution width (RBC) [Ratio] 13.6 % 10.8 - 14.9 % [facility] Hematocrit (Bld) [Volume fraction] 39.8 % 34.9 - 44.3 % [facility] Hemoglobin (Bld) [Mass/Vol] 13.2 g/dL 11.4 - 15.2 g/dL [facility] Immature granulocytes (Bld) [#/Vol] K/uL NINF - 0.08 K/uL [facility] Immature granulocytes/100 WBC (Bld) 0.2 % [facility] Lymphocytes (Bld) [#/Vol] 2.79 10*3/uL 1.16 - 3.51 K/uL [facility] Lymphocytes/100 WBC (Bld) 45.1 % [facility] MCH (RBC) [Entitic mass] 32.3 pg 25.9 - 33.9 pg [facility] M[facility] (RBC) [Mass/Vol] 33.2 g/dL 31.4 - 35.9 g/dL [facility] MCV (RBC) [Entitic vol] 97.3 fL 79.6 - 97.7 fL [facility] Monocytes (Bld) [#/Vol] 0.57 10*3/uL 0.22 - 0.87 K/uL [facility] Monocytes/100 WBC (Bld) 9.2 % [facility] Neutrophils (Bld) [#/Vol] 2.70 10*3/uL 1.64 - 7.28 K/uL [facility] Nucleated RBC/100 WBC (Bld) [Ratio] 0.0 % [facility] Platelet mean volume (Bld) [Entitic vol] 10.4 fL 8.5 - 12.2 fL [facility] Platelets (Bld) [#/Vol] 179 10*3/uL 150 - 393 K/uL [facility] RBC (Bld) [#/Vol] 4.09 10*6/uL [facility] Segmented neutrophils/100 WBC (Bld) 43.5 % [facility] WBC (Bld) [#/Vol] 6.19 10*3/uL 3.99 - 11. 19 K/uL [facility] COMPREHENSIVE METABOLIC PANE Ethan 09-29-2022 Albumin [Mass/Vol] 4.2 g/dL 3.5 - 5.0 g/dL [facility] ALP [Catalytic activity/Vol] 47 U/L 32 - 126 U/L [facility] ALT [Catalytic activity/Vol] 38 U/L 9 - 48 U/L [facility] Anion gap [Moles/Vol] 11 mmol/L 7 - 17 mmol/L [facility] AST [Catalytic activity/Vol] 39 U/L 10 - 39 U/L [facility] Bilirubin [Mass/Vol] 0.5 mg/dL NINF - 1.5 mg/dL [facility] Calcium [Mass/Vol] 9.6 mg/dL 8.6 - 10. 5 mg/dL [facility] Chloride [Moles/Vol] 103 mmol/L 98 - 10 8 mmol/L [facility] CO2 [Moles/Vol] 29 mmol/L 21 - 31 mmol/L [facility] Creatinine [Mass/Vol] 1.01 mg/dL 0.50 - 1.20 mg/dL [facility] GFR/1.73 sq M.predicted CKD-EPI (S/P/Bld) [Vol rate/Area] 62 - PINF [facility] Comment on above: Reported eGFR is bas ed on the CKD-EPI 2020 equation using creatinine, age, and sex. Glucose [Mass/Vol] 126 mg/dL High 70 - 99 mg/dL [facility] Osmolality Calc [Osmolality] 292 [facility] Potassium [Moles/Vol] 3.9 mmol/L 3.5 - 5.0 mmol/L [facility] Protein [Mass/Vol] 6.6 g/dL 6.4 - 8.3 g/dL [facility] Sodium [Moles/Vol] 139 mmol/L 135 - 145 mmol/L [facility] Urea nitrogen [Mass/Vol] 11 mg/dL 7 - 25 mg/dL [facility] Urea nitrogen/Creatinine [Mass ratio] 11 mg/mg [facility] LACTATE DEHYDROGENASEon LDH Lactate to pyruvate reaction [Catalytic activity/Vol] 192 U/L High 100 - 190 U/L [facility] No Panel Informationon 09-29 Interpretation and review of laboratory results Abnormal [facility] PT Progress Noteon PT Progress Note [...] from a 7 to a 4 at [place]. 4) Improve LBP from 3/10 to <= [...] Insurance Insurance reviewed Visit number: 8 4/ [facility] Ins: 25 visits per year Dx: Sacroillitis [...] R TKR, L shoulder scope 11/2021. Precautions: [place] Back precautions (No lifting > 10#, no excessive bending or twisting) due to s/p SI surgery on 06/19/2022 with 3 permanent pins for her SI joint. Treatment Time in clinic started at 10:45 am Time in clinic ended at 11:15 am Total time in clinic is 30 minutes. Total timed code time is 25 minutes. Therapeutic exercise (58224): timed minutes 25, units 2 . Bike [...] marches (more content not included)... Normal [email or web address] PT Progress Noteon 2 PT Progress Note [...] Insurance reviewed Visit number: 7 4/ [facility] [place] Ins: 25 visits per year Dx: Sacroillitis [...] R TKR, L shoulder scope 11/2021. Precautions: [place] Back precautions (No lifting > 10#, no excessive bending or twisting) due to s/p SI surgery on 06/19/2022 with 3 permanent pins for her SI joint. Treatment Time in clinic started at 10:30 am Time in clinic ended at 11:15 am Total time in clinic is 45 minutes. Total timed code time is 41 minutes. Therapeutic exercise (81198): timed minutes 41 . Bike 5' Standing: [...] holds x 10 each leg. Aquatic Therapy (29747): timed minutes 41, units 3 . All exercises preformed in 70-75% unloading unless noted TrA x10 5? hold/instruction (review) Side Stepping 3 laps Hip flex x15 Hip abd x15 Alt march x15 Squats x15 Heel raises x15 Paddles with TrA Level 3 2X10 -flex/ext, push/pull, abd/add, H abd/add DB ROLLS [place] [address] Paddle Board push/pull, flex/ext x10 100% Unloading with LG noodle and B UE support -bike 5? -abd/add 5? -hang 5? Gradual exit 3? . ' (more content not included)... Normal [email or web address] PT Progress Noteon 2 PT Progress Note [...] Insurance reviewed Visit number: 6 4/ [facility] [place] Ins: 25 visits per year Dx: Sacroillitis [...] R TKR, L shoulder scope 11/2021. Precautions: [place] Back precautions (No lifting > 10#, no excessive bending or twisting) due to s/p SI surgery on 06/19/2022 with 3 permanent pins for her SI joint. Treatment Time in clinic started at 8:30 am Time in clinic ended at 9:15 am Total time in clinic is 45 minutes. Total timed code time is 41 minutes. Aquatic Therapy (25845): timed minutes 41, units 3 . All exercises preformed in 70-75% unloading unless noted TrA x10 5? hold/instruction (review) Side Stepping 3 laps Hip flex x15 Hip abd x15 Alt december x15 Squats x15 Heel raises x15 Paddles with TrA Level 3 2X10 -flex/ext, push/pull, abd/add, H abd/add DB ROLLS [place] [address] Paddle Board push/pull, flex/ext x10 100% Unloading with LG noodle and B UE support -bike 5? -abd/add 5? -hang 5? Gradual exit 3? . 'Scores and Scales' Signatures Electronically signed by : Silvia Mcneill, INDUSTRIAL ARTS TEACHER; Aug 27 2022 9:12AM EST (Author) Electronically [...] Insurance reviewed Visit number: 5 4/ [facility] [place] Ins: 25 visits per year Dx: Sacroillitis [...] R TKR, L shoulder scope 11/2021. Precautions: [place] Back precautions (No lifting > 10#, no excessive bending or twisting) due to s/p SI surgery on 06/19/2022 with 3 permanent pins for her SI joint. Treatment Time in clinic started at 10:00 am Time in clinic ended at 10:45 am Total time in clinic is 45 minutes. Total timed code time is 41 minutes. Aquatic Therapy (88216): timed minutes 41, units 3 . All exercises preformed in 70-75% unloading unless noted TrA x10 5? hold/instruction (review) Side Stepping 3 laps Hip flex x15 P Hip abd x15 P Alt march x15 P Squats x15 P Heel raises x15 P Paddles with TrA Level 3 2X10 -flex/ext, push/pull, abd/add, H abd/add DB ROLLS [place] [address] Paddle Board push/pull, flex/ext [...] Insurance reviewed Visit number: 4 4/ [facility] [place] Ins: 25 visits per year Dx: Sacroillitis [...] R TKR, L shoulder scope 11/2021. Precautions: [place] Back precautions (No lifting > 10#, no excessive bending or twisting) due to s/p SI surgery on 06/19/2022 with 3 permanent pins for her SI joint. Treatment Time in clinic started at 1000 am Time in clinic ended at 10:45 am Total time in clinic is 45 minutes. Total timed code time is 41 minutes. Aquatic Therapy (65490): timed minutes 43, units 3 . All exercises preformed in 70-75% unloading unless noted TrA x10 5? hold/instruction (review) Side Stepping 3 laps Hip flex x15 P Hip abd x15 P Alt march x15 P Squats x15 P Heel raises x15 P Paddles with TrA Level 1 2X10 -flex/ext, push/pull, abd/add, H abd/add DB ROLLS [place] [address] Paddle Board push/pull, flex/ext x10 N 100% Unloading with LG noodle and B UE support -bike 5? -abd/add 5? -hang 5? Gradual exit 3? . 'Scores and Scales' Signatures Electronically signed by : Laya Gomez INDUSTRIAL ARTS TEACHER; Aug 17 2022 10:43AM EST (Author) Electronically [...] Insurance Insurance reviewed Visit number: 3 1/ [facility] [place]: 25 visits per year Dx: Sacroillitis [...] R TKR, L shoulder scope 11/2021. Precautions: [place] Back precautions (No lifting > 10#, no excessive bending or twisting) due to s/p SI surgery on 06/19/2022 with 3 permanent pins for her SI joint. Treatment Time in clinic started at 10:45 am Time in clinic ended at 11:30 am Total time in clinic is 45 minutes. Total timed code time is 41 minutes. Aquatic Therapy (13243): timed minutes 41, units 3 . All exercises preformed in 70-75% unloading unless noted TrA x10 5? hold/instruction (review) Side Stepping 3 laps Hip flex x10 Hip abd x10 Alt december x10 Squats x10 Heel raises x10 Paddles with TrA Level 1 -flex/ext, push/pull, abd/add, H abd/add DB ROLLS [place] [address] N 100% Unloading with LG noodle and B UE support -bike 5? -abd/add 5? -hang 5? Gradual exit 3? . 'Scores and Scales' Signatures Electronically signed by : Silvia Mcneill, INDUSTRIAL ARTS TEACHER; Aug 11 2022 11:31AM EST (Author) Electronically signed by : Jaswinder Schwartz, PT; Aug 11 2022 6:13PM EST Normal [email or web address] PT Progress Noteon 2 PT Progress Note No report was sent Normal [email or web address] PT Progress Note Therapy Diagnosis Assessed Sacroiliitis [...] Insurance reviewed Visit number: 2 1/ [facility] [place] Ins: 25 visits per year Dx: Sacroillitis [...] R TKR, L shoulder scope 11/2021. Precautions: [place] Back precautions (No lifting > 10#, no excessive bending or twisting) due to s/p SI surgery on 06/19/2022 with 3 permanent pins for her SI joint. Treatment Time in clinic started at 12:25 Time in clinic ended at 1:10 Total time in clinic is 45 minutes. Total timed code time is 43 minutes. Aquatic Therapy (81457): timed minutes 43, units 3 . All [...] PT; Aug 05 2022 4:45PM EST Normal [facility] PT Progress Noteon 2 PT Progress Note No report was sent Normal [facility] Therapy Communicationon 07-24 Therapy Communication Message ELENA HARTSEL no showed today . Patient no showed today. Called last week and patient said that her father had just . JW. Signatures Electronically signed by : aLya Gomez PTA; Aug 03 2022 11:54AM EST (Author) Normal [facility] PT Progress Noteon 2 PT Progress Note No report was sent Normal [facility] Therapy Communicationon Therapy Communication Message ELENA HARTSEL canceled today . Patient's father and patient cancelled appointment. JW. Signatures Electronically signed by : Laya Gomez PTA; Jul 29 2022 12:06PM EST (Author) Normal [facility] Therapy Communication No report was sent Normal [...] Insurance Insurance reviewed Visit number: 1 [facility] [place] Ins: 25 visits per year Dx: Sacroillitis [...] R TKR, L shoulder scope 11/2021. Precautions: [place] Back precautions (No lifting > 10#, no [...] Cx Nom (Unsp spec) NO PATHOGENS ISOLATED [facility] Comment on above: Testing performed at [place], [place] [address] Leukocyte esterase+Nitrite Test strip Ql (U) Positive [facility] Comment on above: NITRITE NEGATIVE Service comment (Unsp spec) [Interp] 06/09/2022 [facility] Comment on above: FINAL SPECIMEN DESCRIPTION URINE CLEAN CATCH [facility] POCT URINALYSIS DIPSTICK AUT OMATED W/O SCOPon 04-16-2022 Amorphous sediment LM Ql (Urine sed) [facility] Appearance (U) clear [facility] Bacteria LM Ql (Urine sed) [facility] Bilirubin Ql (U) Negative [facility] Casts LM.LPF (Urine sed) [#/Area] [facility] Color (U) yellow [facility] Crystals LM Nom (Urine sed) [facility] Epithelial cells.squamous LM.HPF (Urine sed) [#/Area] [facility] Flow cytometry specialist review Brian (Unsp spec) [Interp] [facility] Glucose Auto test strip (U) [Mass/Vol] Negative mg/dL [facility] Ketones [Mass/Vol] Negative mg/dL [facility] Leukocyte esterase Qn (U) [facility] Leukocyte esterase Test strip Ql (U) Negative [facility] Nitrite Ql (U) Negative [facility] pH (U) 6.5 [pH] [facility] Protein Ql (U) Negative mg/dL [facility] RBC LM.HPF (Urine sed) [#/Area] [facility] RBC Ql (U) Negative [facility] Specific gravity (U) [Rel density] 1.010 [facility] Transitional cells LM Ql (Urine sed) [facility] Urobilinogen Qn (U) 0.2 [facility] WBC LM.HPF (Urine sed) [#/Area] [facility] CT CERVICAL SPINE WITHOUT CO NTRASTon 03-31-2022 [...] and/or use of iterative reconstruction technique. 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 MINERALIZATION: Normal. CRANIOCERVICAL AND ATLANTOAXIAL [...] TueApr 01, 2022 12:09:22 AM EDT [facility] Comment on above: Order Comment: Injur [...] TueMar 31, 2022 10:14:00 PM EDT [facility] Comment on above: Order Comment: Injur y/Trauma or Illness?:Injury/Trauma How long have you had these symptoms (acute/chronic)?:Acute Reason for exam?:fall, laceration to rt side of head pt intoxicated, best images possible Type of Exam?:Initial Mechanism of injury?:fall POCT URINALYSIS DIPSTICK AUT OMATED W/O SCOPon 03-23-2022 Amorphous sediment LM Ql (Urine sed) [facility] Appearance (U) clear [facility] Bacteria LM Ql (Urine sed) [facility] Bilirubin Ql (U) Negative [facility] Casts LM.LPF (Urine sed) [#/Area] [facility] Color (U) yellow [facility] Crystals LM Nom (Urine sed) [facility] Epithelial cells.squamous LM.HPF (Urine sed) [#/Area] [facility] Flow cytometry specialist review Brian (Unsp spec) [Interp] [facility] Glucose Auto test strip (U) [Mass/Vol] Negative mg/dL [facility] Interpretation and review of laboratory results Normal [facility] Ketones [Mass/Vol] Negative mg/dL [facility] Leukocyte esterase Qn (U) [facility] Leukocyte esterase Test strip Ql (U) Negative [facility] Nitrite Ql (U) Negative [facility] pH (U) 7.0 [pH] [facility] Protein Ql (U) Negative mg/dL [facility] RBC LM.HPF (Urine sed) [#/Area] [facility] RBC Ql (U) Negative [facility] Specific gravity (U) [Rel density] 1.020 [facility] Transitional cells LM Ql (Urine sed) [facility] Urobilinogen Qn (U) 0.2 [facility] WBC LM.HPF (Urine sed) [#/Area] [facility] [place] Unspecified body regionon 03-02-2022 Image Storage This order is to facilitate the storage of the image. [facility] POCT URINALYSIS DIPSTICK AUT OMATED W/O SCOPon 01-27-2022 Amorphous sediment LM Ql (Urine sed) [facility] Appearance (U) CLEAR [facility] Bacteria LM Ql (Urine sed) [facility] Bilirubin Ql (U) Negative [facility] Casts LM.LPF (Urine sed) [#/Area] [facility] Color (U) YELLOW [facility] Crystals LM Nom (Urine sed) [facility] Epithelial cells.squamous LM.HPF (Urine sed) [#/Area] [facility] Flow cytometry specialist review Brian (Unsp spec) [Interp] [facility] Glucose Auto test strip (U) [Mass/Vol] Negative mg/dL [facility] Ketones [Mass/Vol] Negative mg/dL [facility] Leukocyte esterase Qn (U) [facility] Leukocyte esterase Test strip Ql (U) Negative [facility] Nitrite Ql (U) Negative [facility] pH (U) 7.0 [pH] [facility] Protein Ql (U) Negative mg/dL [facility] RBC LM.HPF (Urine sed) [#/Area] [facility] RBC Ql (U) Negative [facility] Specific gravity (U) [Rel density] 1.015 [facility] Transitional cells LM Ql (Urine sed) [facility] Urobilinogen Qn (U) 0.2 [facility] WBC LM.HPF (Urine sed) [#/Area] [facility] XR Shoulder Left 2+ Views (S tandakindra)Ordered By: Asad Sagastume on 02-13-2021 Normal alignment without fracture or dislocation. Mild developing osteoarthritic changes at the glenohumeral and acromioclavicular level. [facility]/w Workstation ID: [id number] [facility] EXAMINATION: XR SHOULDER LEFT 2+ VIEWS (STANDARD) [...] level. No soft tissue calcifications are seen. [facility] Interface, Rad In Fu ji Speechq - [...] and acromioclavicular level. LR/jcw Workstation ID: [id number] [facility] CT Coronary Artery Calcium S core - JUDAHon 07-27-2019 Calcium [Mass/Vol] Exam Date/Time: 07/27/2019 08:45 EDT Reason for Exam: SCREENING FOR HEART DISEASE Report STUDY: CT Coronary Artery Calcium Score - JUDAH; 07/27/2019 8:45 am INDICATION: SCREENING FOR HEART DISEASE. COMPARISON: None. ACCESSION NUMBER(S): [id number] ORDERING CLINICIAN: Delilah Calderon TECHNIQUE: Using prospective [...] coronary heart disease events. According to the [place] [employer] Clinical Expert Consensus [...] modify other non-lipid coronary risk factors. Reference: [place] P et al. Circulation. 2007; 115:402-426 FINAL REPORT Dictated: 07/27/2019 1:38 pm Janes Frederick MD Signed (Electronic Signature): 07/27/2019 1:38 pm Signed by: Janes Frederick MD Technologist: MM Normal [facility] Blood Glucose , Office ([phone])Ordered By: Tracy Joy on 06-10-2017 Glucose Glucometer molar conc (BldC) 160 1 Normal [facility] Work Phone: HgA1C , Office ([phone])Ordere d By: Tracy Joy on 06-10-2017 Hemoglobin A1c/Hemoglobin.total mass fraction (Bld) 5.8 % Normal 4.6 - 7.1 [facility] Work Phone: Fecal Occult Blood , Office ([phone])Ordered By: Abdifatah Michele on 02-15-2017 Hemoglobin.gastroint estinal Ql (St) Negative Normal [facility] Work Phone: Vitamin B-12 (cyanocobalamin ) ([phone])Ordered By: Crossword Puzzle Maker on 07-23-2015 Cobalamin (Vitamin B12) mass conc 482 pg/mL Normal 211-946 [facility] Work Phone: Comment on above: PATIENT NOT FASTINGP ERFORMED BY: [facility] [id number] [facility] [id number] Information: [id number] Blood Glucose , Office ([phone])Ordered By: EVA Charlton on 09-03-2013 Glucose Glucometer molar conc (BldC) 122 1 Normal [facility] Work Phone: HgA1C , Office ([phone])Ordere d By: EVA Charlton on 09-03-2013 Hemoglobin A1c/Hemoglobin.total mass fraction (Bld) 5.4 % Normal 4.6 - 7.1 [facility] Work Phone: HgA1C , Office ([phone])Ordere d By: Myrtle Kay on 03-01-2013 Hemoglobin A1c/Hemoglobin.total mass fraction (Bld) 5.8 % Normal 4.6 - 7.1 [facility] Work Phone: Rapid Strep Test, Office ([phone])Ordered By: EVA Charlton on 02-23-2013 S. pyogenes Ag IA Ql (Unsp spec) Negative Normal [facility] Work Phone: Urinalysis, Office ([phone])on 11-27-2012 Bilirubin Ql (U) Negative Normal Comprehe [...] Normal [facility] Work Phone: CALCIFIDIOL ([phone]) VIT D 25 Ordered By: Crossword Puzzle Maker on 10-05-2012 25-Hydroxyvitamin D2+25-Hydroxyvitamin D3 mass conc 46.4 ng/mL Normal 30.0-100.0 [facility] Work Phone: Comment on above: Vitamin D deficiency has been defined by the [place] ofMedicine and an Endocrine Society practice guideline as alevel of serum 25-OH vitamin D less than 20 ng/mL (1,2).The Endocrine Society went on to further define vitamin Dinsufficiency as a level between 21 and 29 ng/mL (2).1. IOM ([place] of Medicine). 2010. Dietary reference intakes for calcium and D. [place]: The National Academies Press.2. Mirza MF, R[place], Horacio GUERRERO, et al. Evaluation, treatment, and prevention of vitamin D deficiency: an Endocrine Society clinical practice guideline. JCEM. 2010; 96(7):1911-30. check 2-4 weeks; PAT IENT NOT FASTINGPERFORMED BY: CB [facility] [id number] [place] [id number] CBC with manual diff ([id number]) Ordered By: Crossword Puzzle Maker on 10-05-2012 Basophils #/vol (Bld) 0.0 {x10E3/uL} Normal 0.0-0.2 [facility] Work Phone: Comment on above: PATIENT NOT FASTINGP ERFORMED BY: CB [facility] [id number] Ty RoadDublin [place] [id number] Information: [id number] Basophils/100 WBC (Bld) 1 % Normal 0-3 [facility] Work Phone: Comment on above: PATIENT NOT FASTINGP ERFORMED BY: CB [facility] [id number] [place] [id number] Information: [id number] Eosinophils #/vol (Bld) 0.1 {x10E3/uL} Normal 0.0-0.4 [facility] Work Phone: Comment on above: PATIENT NOT FASTINGP ERFORMED BY: CB [facility] [id number] Ty RoadDublin [place] [id number] Information: [id number] Eosinophils/100 WBC (Bld) 1 % Normal 0-7 [facility] Work Phone: Comment on above: PATIENT NOT FASTINGP ERFORMED BY: CB [facility] [id number] [place] [id number] Information: [id number] Erythrocyte distribution width Ratio (RBC) 13.6 % Normal 12.3-15.4 [facility] Work Phone: Comment on above: PATIENT NOT FASTINGP ERFORMED BY: JOB Pritchett [id number] [facility] [id number] Information: [id number] Hematocrit Volume Fraction (Bld) 47.3 % Abnormal 34.0-46.6 [facility] Work Phone: Comment on above: PATIENT NOT FASTINGP ERFORMED BY: [address] [id number] Information: [id number] Hemoglobin mass conc (Bld) 16.2 g/dL Abnormal 11.1-15.9 [facility] Work Phone: Comment on above: PATIENT NOT FASTINGP ERFORMED BY: [address] [id number] Information: [id number] Immature granulocytes #/vol (Bld) 0.0 {x10E3/uL} Normal 0.0-0.1 [facility] Work Phone: Comment on above: PATIENT NOT FASTINGP ERFORMED BY: JOB [place] [id number] [facility] [id number] Information: [id number] Immature granulocytes/100 WBC (Bld) 0 % Normal 0-2 [facility] Work Phone: Comment on above: PATIENT NOT FASTINGP ERFORMED BY: [place] [id number] [facility] [id number] Information: [id number] Lymphocytes #/vol (Bld) 1.8 {x10E3/uL} Normal 0.7-4.5 [facility] Work Phone: Comment on above: PATIENT NOT FASTINGP ERFORMED BY: [address] [id number] Information: [id number] Lymphocytes/100 WBC (Bld) 27 % Normal 14-46 [facility] Work Phone: Comment on above: PATIENT NOT FASTINGP ERFORMED BY: JOB ZabalaNicole [place] [id number] [facility] [id number] Information: [id number] MCH Entitic mass (RBC) 33.5 pg Abnormal 26.6-33.0 [facility] Work Phone: Comment on above: PATIENT NOT FASTINGP ERFORMED BY: [address] [id number] Information: [id number] MCHC mass conc (RBC) 34.2 g/dL Normal 31.5-35.7 [facility] Internal Medicine Work Phone: Comment on above: PATIENT NOT FASTINGP ERFORMED BY: [address] [id number] Information: [id number] MCV Entitic volume (RBC) 98 fL Abnormal 79-97 [facility] Work Phone: Comment on above: PATIENT NOT FASTINGP ERFORMED BY: [address] [id number] Information: [id number] Monocytes #/vol (Bld) 0.7 {x10E3/uL} Normal 0.1-1.0 [facility] Work Phone: Comment on above: PATIENT NOT FASTINGP ERFORMED BY: [place] [id number] [facility] [id number] Information: [id number] Monocytes/100 WBC (Bld) 11 % Normal 4-13 [facility] Work Phone: Comment on above: PATIENT NOT FASTINGP ERFORMED BY: [place] [id number] [facility] [id number] Information: [id number] Neutrophils #/vol (Bld) 4.0 {x10E3/uL} Normal 1.8-7.8 [facility] Work Phone: Comment on above: PATIENT NOT FASTINGP ERFORMED BY: JOB Mishra [facility] [id number] Information: [id number] Neutrophils/100 WBC (Bld) 60 % Normal 40-74 [facility] Work Phone: Comment on above: PATIENT NOT FASTINGP ERFORMED BY: JOB Cornejo6370 [facility] [id number] Information: [id number] Platelets #/vol (Bld) 188 {x10E3/uL} Normal 140-415 [facility] Work Phone: Comment on above: PATIENT NOT FASTINGP ERFORMED BY: JOB Pritchett Buiczs6846 [facility] [id number] Information: [id number] RBC #/vol (Bld) 4.84 {x10E6/uL} Normal 3.77-5.28 [facility] Internal Medicine Work Phone: Comment on above: PATIENT NOT FASTINGP ERFORMED BY: JOB Bucknerlin6370 [facility] [id number] Information: [id number] WBC #/vol (Bld) 6.6 {x10E3/uL} Normal 4.0-10.5 [facility] Internal Medicine Work Phone: Comment on above: PATIENT NOT FASTINGP ERFORMED BY: JOB Pritchett Fqxiru6491 [facility] [id number] Information: [id number] Metabolic Panel, Basic (8004 8)Ordered By: Crossword Puzzle Maker on 10-05-2012 Calcium mass conc 9.8 mg/dL Normal 8.7-10.2 [facility] Internal Medicine Work Phone: Comment on above: 2-4 weeks before fol low up; PATIENT NOT FASTINGPERFORMED BY: JOB Pritchett Damusl0770 [facility] [id number] Information: [id number],2ND ORDER NO DRAW F EE Chloride molar conc 96 mmol/L Abnormal 97-108 Compr e[facility] Work Phone: Comment on above: 2-4 weeks before fol low up; PATIENT NOT FASTINGPERFORMED BY: JOB LabCojamison Adcngd1377 [facility] [id number] Information: [id number],2ND ORDER NO DRAW F EE CO2 molar conc 27 mmol/L Normal 20-32 Comprehens radha Internal Medicine Work Phone: Comment on above: 2-4 weeks before fol low up; PATIENT NOT FASTINGPERFORMED BY: JOB [facility] Pwtdca3669 [facility] [id number] Information: [id number],2ND ORDER NO DRAW F EE Creatinine mass conc 0.73 mg/dL Normal 0.57-1.00 [facility] Internal Medicine Work Phone: Comment on above: 2-4 weeks before fol low up; PATIENT NOT FASTINGPERFORMED BY: JOB LabCojamison BucknerFalqta2337 [facility] [id number] Information: [id number],2ND ORDER NO DRAW F EE GFR/1.73 sq M predicted among blacks CKD-EPI vol rate/area (S/P/Bld) 108 mL/min/1.73 Normal Comprehensiv e Internal Medicine Work Phone: Comment on above: 2-4 weeks before fol low up; PATIENT NOT FASTINGPERFORMED BY: JOB LabCojamison Iqgaoy5486 [facility] [id number] Information: [id number],2ND ORDER NO DRAW F EE GFR/1.73 sq M predicted among non-blacks CKD-EPI vol rate/area (S/P/Bld) 94 mL/min/1.73 Normal [facility] Work Phone: Comment on above: 2-4 weeks before fol low up; PATIENT NOT FASTINGPERFORMED BY: JOB [facility] Eklldw7855 [facility] [id number] Information: [id number],2ND ORDER NO DRAW F EE Glucose mass conc 122 mg/dL Abnormal 65-99 Compreh ensive [facility] Work Phone: Comment on above: 2-4 weeks before fol low up; PATIENT NOT FASTINGPERFORMED BY: JOB Cornejo6370 [facility] [id number] Information: [id number],2ND ORDER NO DRAW F EE Potassium molar conc 3.9 mmol/L Normal 3.5-5.2 Comp rehensive [facility] Work Phone: Comment on above: 2-4 weeks before fol low up; PATIENT NOT FASTINGPERFORMED BY: JOB Bucknerlin6370 [facility] [id number] Information: [id number],2ND ORDER NO DRAW F EE Sodium molar conc 139 mmol/L Normal 134-144 Compreh ensive [facility] Work Phone: Comment on above: 2-4 weeks before fol low up; PATIENT NOT FASTINGPERFORMED BY: JOB Bucknerlin6370 [facility] [id number] Information: [id number],2ND ORDER NO DRAW F EE Urea nitrogen mass conc 12 mg/dL Normal 6-24 [facility] Work Phone: Comment on above: 2-4 weeks before fol low up; PATIENT NOT FASTINGPERFORMED BY: JOB [address] [id number] Information: B10571,2ND ORDER NO DRAW F EE Urea nitrogen/Creatinine mass ratio 16 mg/mg Normal 9-23 [facility] Work Phone: Comment on above: 2-4 weeks before fol low up; PATIENT NOT FASTINGPERFORMED BY: JOB Bucknerlin6370 [facility] [id number] Information: [id number],2ND ORDER NO DRAW F EE Vitamin B-12 (cyanocobalamin ) (90287)Ordered By: Crossword Puzzle Maker on 10-05-2012 Cobalamin (Vitamin B12) mass conc 1399 pg/mL Abnormal 211-946 [facility] Work Phone: Comment on above: PATIENT NOT FASTINGP ERFORMED BY: JOB Bucknerlin6370 [facility] [id number] Thin prep Pap (34310)Ordered By: Crossword Puzzle Maker on 10-19-2011 Microscopic observation Other stain Nom (Unsp spec) . Normal [facility] Work Phone: Comment on above: Source.............C ervical;EndocervicalNo. of containers..01 CYTYC Thin Prep VialPATIENT NOT FASTINGPERFORMED BY: IZEA F[address] [id number] Information: [id number] Pathology report final diagnosis Narrative [facility] Normal [facility] Work Phone: Comment on above: NEGATIVE FOR INTRAEP ITHELIAL LESION AND MALIGNANCY.Satisfactory for evaluation. Endocervical and/or squamous metaplasticcells (endocervical component) are present.V72.31 ; Routine gynecological examinationErin Tammy Geographic Information Systems Director (ASCP) Source.............C ervical;EndocervicalNo. of containers..01 CYTYC Thin Prep VialPATIENT NOT FASTINGPERFORMED BY: [employer] [id number] Information: [id number] Thin prep Pap (88580) PAPSMR Normal [facility] Work Phone: [...] Thin Prep VialPATIENT NOT FASTINGPERFORMED BY: [facility] [address] [id number] Information: [id number] Urinalysis, Office ([id number])Or dered By: Dragan Weiner on 09-03-2010 Bilirubin [...] Internal Medicine Work Phone: Thin prep Pap ([id number])Ordered By: Crossword Puzzle Maker on 05-26-2010 Microscopic observation Other stain Nom (Unsp spec) . Normal [facility] Work Phone: Comment on above: LMP / Prev Treat...L ML=[id number]. of containers..01 CYTYC Thin Prep VialPATIENT NOT FASTINGPERFORMED BY: [facility] [address] [id number] Information: ADD [id number] Pathology report final diagnosis Narrative [facility] Normal [facility] Work Phone: Comment on above: NEGATIVE FOR INTRAEP ITHELIAL LESION AND MALIGNANCY.Satisfactory for evaluation. Endocervical and/or squamous metaplasticcells (endocervical component) are present.V72.31 ; Routine gynecological examinationShawn Gutiérrez, Geographic Information Systems Director (ASCP) LMP / Prev Treat...L QR=[id number]. of containers..01 CYTYC Thin Prep VialPATIENT NOT FASTINGPERFORMED BY: [address] [id number] Information: ADD [id number] Thin prep Pap (12694) [facility] Normal [facility] Work Phone: Comment [...] testing was performed.. LMP / Prev Treat...L JQ=[id number]. of containers..01 CYTYC Thin Prep VialPATIENT NOT FASTINGPERFORMED BY: [address] [id number] Information: ADD [id number] Thin prep Pap (03877)Ordered By: Roxann Yan on 12-26-2007 Thin prep Pap (86281) [facility] Normal [facility] Work Phone: Comment on above: NEGATIVE FOR INTRAEP ITHELIAL LESION AND MALIGNANCY.Satisfactory for evaluation. Endocervical and/or squamous metaplasticcells (endocervical component) are present.V72.31 ; Routine gynecological examinationMelody Munoz Geographic Information Systems Director (ASCP) Source.............C ervical;EndocervicalLMP / Prev Treat...DHN=[id number]. of containers..01 CYTYC Thin Prep VialPATIENT NOT FASTINGPERFORMED BY: [employer] [id number] Thin prep Pap (46609) . Normal [facility] Work Phone: Comment on above: Source.............C ervical;EndocervicalLMP / Prev Treat...PAL=[id number]. of containers..01 CYTYC Thin Prep VialPATIENT NOT FASTINGPERFORMED BY: [employer] [address] [id number] Thin prep Pap (84862) PAPSMR [facility] Internal Medicine Work Phone: Comment on [...] was performed. . Source.............C ervical;EndocervicalLMP / Prev Treat...LLJ=[id number]. of containers..01 CYTYC Thin Prep VialPATIENT NOT FASTINGPERFORMED BY: [employer] [address] [id number] No Panel Information [facility] Vital Signs Date Time Vital Sign Value Performing Clinician Facility 08-09-2025 09:53-0400 Body height 165.1 cm Katina MILTON Work Phone: [facility] 08-09-2025 09:53-0400 Body mass index (BMI) [Ratio] 33.45 kg/m2 Katina MILTON Work Phone: [facility] 08-09-2025 09:53-0400 Body weight 91.17 kg Katina MILTON Work Phone: [facility] 08-09-2025 09:53-0400 Diastolic blood pressure 76 mm[Hg] Katina MILTON Work Phone: [facility] 08-09-2025 09:53-0400 Heart rate 60 /min Katina MILTON Work Phone: [facility] 08-09-2025 09:53-0400 SaO2% (BldA) [Mass fraction] 95 % Katina Frytz 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 Work Phone: [facility] 08-09-2025 09:53-0400 Systolic blood pressure 154 mm[Hg] Katina Frytz 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 Work Phone: [facility] 07-09-2025 12:34-0400 Body height 165.1 cm Deepali Hooknatalya HYDRAULIC PRESS SERVICER Work Phone: [facility] 07-09-2025 12:34-0400 Body mass index (BMI) [Ratio] 33.45 kg/m2 Deepali Hooknatalya HYDRAULIC PRESS SERVICER Work Phone: [facility] 07-09-2025 12:34-0400 Body weight 91.17 kg Deepali Kindnatalya HYDRAULIC PRESS SERVICER Work Phone: [facility] 07-09-2025 12:34-0400 Diastolic blood pressure 60 mm[Hg] Deepali Hooknatalya HYDRAULIC PRESS SERVICER Work Phone: [facility] 07-09-2025 12:34-0400 Heart rate 67 /min Deepali Joe HYDRAULIC PRESS SERVICER Work Phone: [facility] 07-09-2025 12:34-0400 SaO2% (BldA) [Mass fraction] 98 % Deepali Hooknatalya HYDRAULIC PRESS SERVICER Work Phone: [facility] [employer] [facility] 07-09-2025 12:34-0400 Systolic blood pressure 138 mm[Hg] Deepali Kindnatalya HYDRAULIC PRESS SERVICER Work Phone: [facility] 06-27-2025 07:47-0400 Body height 165.1 cm Dawn Uriarte DPM Work Phone: [facility] 06-27-2025 07:47-0400 Body mass index (BMI) [Ratio] 33.48 kg/m2 Dawn Cisnerosk DPM Work Phone: [facility] 06-27-2025 07:47-0400 Body weight 91.26 kg Dawn Uriarte DPM Work Phone: [facility] 06-27-2025 07:47-0400 Diastolic blood pressure 78 mm[Hg] Dawn Uriarte DPM Work Phone: [facility] 06-27-2025 07:47-0400 Heart rate 72 /min Dawn Uriarte DPM Work Phone: [facility] 06-27-2025 07:47-0400 Systolic blood pressure 134 mm[Hg] Dawn Uriarte DPM Work Phone: [employer] [facility] 06-20-2025 13:51-0400 Diastolic blood pressure 78 mm[Hg] Fernie Paredes DO Work Phone: [facility] 06-20-2025 13:51-0400 Systolic blood pressure 152 mm[Hg] Fernie Paredes DO Work Phone: [facility] 06-20-2025 13:26-0400 Body height 165.1 cm Fernie Paredes DO Work Phone: [facility] 06-20-2025 13:26-0400 Body mass index (BMI) [Ratio] 33.48 kg/m2 Fernie Paredes DO Work Phone: [facility] 06-20-2025 13:26-0400 Body temperature 97.2 [degF] Fernie Paredes DO Work Phone: [facility] 06-20-2025 13:26-0400 Body weight 91.26 kg Fernie Paredes DO Work Phone: [facility] 06-20-2025 13:26-0400 Heart rate 65 /min Fernie Brown DO Work Phone: [facility] 06-20-2025 13:26-0400 Respiratory rate 16 /min Fernie Paredes DO Work Phone: [facility] 06-20-2025 13:26-0400 SaO2% (BldA) [Mass fraction] 98 % Fernie Paredes DO Work Phone: [facility] 05-30-2025 11:10-0400 Body height 165.1 cm Dawn Uriarte DPM Work Phone: [facility] 05-30-2025 11:10-0400 Body mass index (BMI) [Ratio] 33.28 kg/m2 Dawn Uriarte DPM Work Phone: [facility] 05-30-2025 11:10-0400 Body weight 90.72 kg Dawn Uriarte DPM Work Phone: [facility] 05-30-2025 11:10-0400 Diastolic blood pressure 82 mm[Hg] Dawn Uriarte DPM Work Phone: [facility] 05-30-2025 11:10-0400 Heart rate 70 /min Dawn Uriarte DPM Work Phone: [facility] 05-30-2025 11:10-0400 Systolic blood pressure 124 mm[Hg] Dawn Uriarte DPM Work Phone: [facility] 05-20-2025 12:42-0400 Body height 165.1 cm Katina William APRN-HYDRAULIC PRESS SERVICER Work Phone: [facility] 05-20-2025 12:42-0400 Body mass index (BMI) [Ratio] 33.28 kg/m2 Katina William APRN-HYDRAULIC PRESS SERVICER Work Phone: [facility] 05-20-2025 12:42-0400 Body weight 90.72 kg Katina William APRN-HYDRAULIC PRESS SERVICER Work Phone: [facility] 05-20-2025 12:42-0400 Diastolic blood pressure 83 mm[Hg] Katina William APRN-HYDRAULIC PRESS SERVICER Work Phone: [facility] 05-20-2025 12:42-0400 Heart rate 71 /min Katina William APRN-HYDRAULIC PRESS SERVICER Work Phone: [facility] 05-20-2025 12:42-0400 SaO2% (BldA) [Mass fraction] 96 % Katina Nataliia 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 Work Phone: [facility] 05-20-2025 12:42-0400 Systolic blood pressure 186 mm[Hg] Katina William 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 Work Phone: [facility] 05-16-2025 12:34-0400 Body height 165.1 cm Dawn Mirellaatek DPM Work Phone: [facility] 05-16-2025 12:34-0400 Body mass index (BMI) [Ratio] 33.78 kg/m2 Dawn Swiatek DPM Work Phone: [facility] 05-16-2025 12:34-0400 Body weight 92.08 kg Dawn Swiatek DPM Work Phone: [facility] 05-16-2025 12:34-0400 Diastolic blood pressure 64 mm[Hg] Dawn Vuatek DPM Work Phone: [facility] 05-16-2025 12:34-0400 Heart rate 72 /min Dawn Swiatek DPM Work Phone: [facility] 05-16-2025 12:34-0400 Systolic blood pressure 142 mm[Hg] Dawn Mirellaatek DPM Work Phone: [facility] 05-10-2025 11:03-0400 Body height 165.1 cm Monse Shipley MD Work Phone: [facility] 05-10-2025 11:03-0400 Body mass index (BMI) [Ratio] 33.78 kg/m2 Monse Shipley MD Work Phone: [facility] 05-10-2025 11:03-0400 Body temperature 96.8 [degF] Monse Shipley MD Work Phone: [facility] 05-10-2025 11:03-0400 Body weight 92.08 kg Monse Shipley MD Work Phone: [facility] 05-10-2025 11:03-0400 Diastolic blood pressure 76 mm[Hg] oMnse Shipley MD Work Phone: [facility] 05-10-2025 11:03-0400 Heart rate 75 /min Monse Shipley MD Work Phone: [facility] 05-10-2025 11:03-0400 Respiratory rate 18 /min Monse Shipley MD Work Phone: [facility] 05-10-2025 11:03-0400 SaO2% (BldA) [Mass fraction] 99 % Monse Shipley MD Work Phone: [facility] 05-10-2025 11:03-0400 Systolic blood pressure 122 mm[Hg] Monse Shipley MD Work Phone: [facility] 04-05-2025 07:30-0400 Diastolic blood pressure 65 mm[Hg] Geronimo Harper DO Work Phone: [facility] 04-05-2025 07:30-0400 Heart rate 76 /min Geronimo Harper DO Work Phone: [facility] 04-05-2025 07:30-0400 Respiratory rate 17 /min Geronimo Harper DO Work Phone: [facility] 04-05-2025 07:30-0400 SaO2% (BldA) [Mass fraction] 95 % Geronimo Harper DO Work Phone: [facility] 04-05-2025 07:30-0400 Systolic blood pressure 140 mm[Hg] Geronimo Harper DO Work Phone: [facility] 04-05-2025 05:20-0400 Body temperature 97.11 [degF] Geronimo Harper DO Work Phone: [facility] 04-04-2025 21:58-0400 Body height 162.6 cm Geronimo Harper DO Work Phone: [facility] 04-04-2025 21:58-0400 Body mass index (BMI) [Ratio] 34.67 kg/m2 Geronimo Harper DO Work Phone: [facility] 04-04-2025 21:58-0400 Body weight 91.63 kg Geronimo Harper DO Work Phone: [facility] 03-26-2025 15:06-0400 Body height 165.1 cm Fernie Paredes DO [facility] 03-26-2025 15:06-0400 Body mass index (BMI) [Ratio] 33.23 kg/m2 Fernie Paredes DO Work [facility]: [facility] 03-26-2025 15:06-0400 Body temperature 98.01 [degF] Fernie Paredes DO Work [facility]: [facility] 03-26-2025 15:06-0400 Body weight 90.58 kg Fernie Paredes DO Work Phone: [facility] [employer] [facility] 03-26-2025 15:06-0400 Diastolic blood pressure 67 mm[Hg] Fernie Paredes DO [facility]: [facility] 03-26-2025 15:06-0400 Heart rate 66 /min Fernie Paredes DO Work Phone: [employer] [facility] 03-26-2025 15:06-0400 Respiratory rate 14 /min Fernie Paredes DO Work Phone: [employer] [facility] 03-26-2025 15:06-0400 SaO2% (BldA) [Mass fraction] 97 % Fernie Paredes DO Work Phone: [facility] [employer] [facility] 03-26-2025 15:06-0400 Systolic blood pressure 137 mm[Hg] Fernie Paredes DO Work Phone: [employer] [facility] 02-22-2025 10:46-0400 Body height 165.1 cm Keshawn Nunez MD Work Phone: [employer] [facility] 02-22-2025 10:46-0400 Body mass index (BMI) [Ratio] 33.98 kg/m2 Keshawn Nunez MD Work Phone: [employer] [facility] 02-22-2025 10:46-0400 Body weight 92.63 kg Keshawn Nunez MD Work Phone: [facility] 02-22-2025 10:46-0400 Diastolic blood pressure 74 mm[Hg] Keshawn Nunez MD Work Phone: [facility] 02-22-2025 10:46-0400 Heart rate 70 /min Keshawn Nunez MD Work Phone: [facility] 02-22-2025 10:46-0400 Respiratory rate 16 /min Keshawn Nunez MD Work Phone: [facility] 02-22-2025 10:46-0400 SaO2% (BldA) [Mass fraction] 99 % Keshawn Nunez MD Work Phone: [facility] 02-22-2025 10:46-0400 Systolic blood pressure 110 mm[Hg] [facility] 02-05-2025 13:48-0400 Body height 165.1 cm Delilah Ellis Jr., DO Work Phone: [facility] 02-05-2025 13:48-0400 Body mass index (BMI) [Ratio] 34.61 kg/m2 Delilah Ellis Jr. DO [facility] 02-05-2025 13:48-0400 Body weight 94.35 kg Delilah Ellis Jr. DO [facility] 02-05-2025 13:48-0400 Diastolic blood pressure 82 mm[Hg] Delilah Ellis Jr. DO Work Phone: [facility] 02-05-2025 13:48-0400 Heart rate 68 /min Delilah Ellis Jr. DO Work Phone: [employer] [facility] 02-05-2025 13:48-0400 SaO2% (BldA) [Mass fraction] 98 % Delilah Ellis Jr., DO Work Phone: [facility] 02-05-2025 13:48-0400 Systolic blood pressure 135 mm[Hg] Delilah Ellis Jr., DO [facility] 01-14-2025 07:29-0400 Body temperature 98.29 [degF] Delilah Ellis Jr., DO [facility] 01-14-2025 07:29-0400 Diastolic blood pressure 67 mm[Hg] Delilah Ellis Jr., DO Work Phone: [facility] [employer] [facility] 01-14-2025 07:29-0400 Heart rate 73 /min Delilah Ellis Jr. DO [facility] 01-14-2025 07:29-0400 Respiratory rate 16 /min Delilah Ellis Jr., DO Work Phone: [facility] [employer] [facility] 01-14-2025 07:29-0400 SaO2% (BldA) [Mass fraction] 96 % Delilah Ellis Jr., DO [facility] 01-14-2025 07:29-0400 Systolic blood pressure 152 mm[Hg] Delilah Ellis Jr., DO Work Phone: [facility] [employer] [facility] 01-14-2025 06:54-0400 Body height 165.1 cm Delilah Ellis Jr., DO [facility] 01-14-2025 06:54-0400 Body mass index (BMI) [Ratio] 34.28 kg/m2 Delilah Ellis Jr., DO [facility] 01-14-2025 06:54-0400 Body weight 93.44 kg Delilah Ellis Jr., DO [facility] 12-31-2024 14:25-0400 Body height 165.1 cm Fernie Paredes DO Work Phone: [facility] [employer] [facility] 12-31-2024 14:25-0400 Body mass index (BMI) [Ratio] 34.31 kg/m2 Fernie Paredes DO Work Phone: [facility] [employer] [facility] 12-31-2024 14:25-0400 Body temperature 97.3 [degF] Fernie Paredes DO Work Phone: [facility] [employer] [facility] 12-31-2024 14:25-0400 Body weight 93.53 kg Fernie Paredes DO Work Phone: [facility] [employer] [facility] 12-31-2024 14:25-0400 Diastolic blood pressure 64 mm[Hg] Fernie Paredes DO Work Phone: [facility] [employer] [facility] 12-31-2024 14:25-0400 Heart rate 57 /min Fernie Paredes DO Work Phone: [facility] [employer] [facility] 12-31-2024 14:25-0400 Respiratory rate 16 /min Fernie Paredes DO Work Phone: [facility] 12-31-2024 14:25-0400 SaO2% (BldA) [Mass fraction] 99 % Fernie Paredes DO Work Phone: [facility] [employer] [facility] 12-31-2024 14:25-0400 Systolic blood pressure 134 mm[Hg] Fernie Paredes DO Work Phone: [facility] [employer] [facility] 12-26-2024 10:33-0500 Body height 165.1 cm Shi Son Work Phone: [facility] [employer] [facility] 12-26-2024 10:33-0500 Body mass index (BMI) [Ratio] 34.11 kg/m2 Shi Son Work Phone: [facility] [employer] [facility] 12-26-2024 10:33-0500 Body weight 92.99 kg Shi Son Work Phone: [facility] [employer] [facility] 12-25-2024 13:52-0500 Body height 165.1 cm Delilah Ellis Jr., DO Work Phone: [facility] 12-25-2024 13:52-0500 Body mass index (BMI) [Ratio] 34.18 kg/m2 Delilah Ellis Jr., DO Work Phone: [facility] 12-25-2024 13:52-0500 Body weight 93.17 kg Dleilah Ellis Jr., DO Work Phone: [facility] 12-25-2024 13:52-0500 Diastolic blood pressure 70 mm[Hg] Delilah Ellis Jr., DO Work Phone: [facility] 12-25-2024 13:52-0500 Heart rate 72 /min Delilah Ellis JrAlix, DO Work Phone: [employer] [facility] 12-25-2024 13:52-0500 SaO2% (BldA) [Mass fraction] 96 % Delilah Ellis Jr., DO Work Phone: [facility] 12-25-2024 13:52-0500 Systolic blood pressure 125 mm[Hg] Delilah Ellis Jr., DO Work Phone: [employer] [facility] 12-05-2024 14:28-0500 Body height 165.1 cm Shi Son Work Phone: [facility] 12-05-2024 14:28-0500 Body mass index (BMI) [Ratio] 35.31 kg/m2 Shi Son Work Phone: [facility] 12-05-2024 14:28-0500 Body weight 96.25 kg Shi Son Work Phone: [facility] 11-13-2024 12:16-0500 Diastolic blood pressure 56 mm[Hg] Gonsalo Blackwood MD Work Phone: [employer] [facility] 11-13-2024 12:16-0500 Heart rate 64 /min Gonsalo Blackwood MD Work Phone: [facility] 11-13-2024 12:16-0500 Respiratory rate 16 /min Gonsalo Blackwood MD Work Phone: [facility] 11-13-2024 12:16-0500 SaO2% (BldA) [Mass fraction] 95 % Gonsalo Blackwood MD Work Phone: [facility] 11-13-2024 12:16-0500 Systolic blood pressure 116 mm[Hg] Gonsalo Blackwood MD Work Phone: [facility] 11-13-2024 07:09-0500 Body temperature 98.1 [degF] Gonsalo Blackwood MD Work Phone: [facility] 11-12-2024 10:00-0500 Body height 165.1 cm Gonsalo Blackwood MD Work Phone: [facility] 11-12-2024 10:00-0500 Body mass index (BMI) [Ratio] 35.23 kg/m2 Gonsalo Blackwood MD Work Phone: [facility] 11-12-2024 10:00-0500 Body weight 96.03 kg Gonsalo Blackwood MD Work Phone: [facility] 11-01-2024 14:53-0500 Diastolic blood pressure 68 mm[Hg] Fernie Brown DO Work Phone: [facility] 11-01-2024 14:53-0500 Systolic blood pressure 130 mm[Hg] Fernie Brown DO Work Phone: [facility] 11-01-2024 14:36-0500 Body height 165.1 cm Fernie Brown DO Work Phone: [facility] 11-01-2024 14:36-0500 Body mass index (BMI) [Ratio] 35.93 kg/m2 Fernie Brown DO Work Phone: [facility] 11-01-2024 14:36-0500 Body temperature 97.11 [degF] Fernie Brown DO Work Phone: [facility] 11-01-2024 14:36-0500 Body weight 97.93 kg Fernie Brown DO Work Phone: [facility] 11-01-2024 14:36-0500 Heart rate 73 /min Fernie Brown DO Work Phone: [facility] 11-01-2024 14:36-0500 Respiratory rate 16 /min Fernie Brown DO Work Phone: [facility] 11-01-2024 14:36-0500 SaO2% (BldA) [Mass fraction] 96 % Fernie Paredes DO Work Phone: [facility] 10-31-2024 13:10-0500 Body mass index (BMI) [Ratio] 36.18 kg/m2 Fernando Davison MD Work Phone: [facility] 10-31-2024 13:10-0500 Body weight 98.61 kg Fernando Davison MD Work Phone: [facility] 10-31-2024 13:10-0500 Diastolic blood pressure 62 mm[Hg] Fernando Davison MD Work Phone: [facility] 10-31-2024 13:10-0500 Heart rate 57 /min Fernando Davison MD Work Phone: [facility] 10-31-2024 13:10-0500 SaO2% (BldA) [Mass fraction] 97 % Fernando Davison MD Work Phone: [facility] [employer] [facility] 10-31-2024 13:10-0500 Systolic blood pressure 100 mm[Hg] Fernando Davison MD Work Phone: [facility] 10-29-2024 13:52-0500 Body height 165.1 cm Brian Brush [employer] Work Phone: [facility] 10-29-2024 13:52-0500 Body mass index (BMI) [Ratio] 35.78 kg/m2 Brian Brush [employer] Work Phone: [facility] 10-29-2024 13:52-0500 Body weight 97.52 kg Brian Brush [employer] Work Phone: [facility] 10-29-2024 13:52-0500 Diastolic blood pressure 67 mm[Hg] Brian Brush [employer] Work Phone: [facility] 10-29-2024 13:52-0500 Heart rate 61 /min Brian Brush [employer] Work Phone: [facility] 10-29-2024 13:52-0500 SaO2% (BldA) [Mass fraction] 94 % Brian Brush [employer] Work Phone: [facility] 10-29-2024 13:52-0500 Systolic blood pressure 138 mm[Hg] Brian Brush [employer] Work Phone: [facility] 10-29-2024 10:45-0500 Body temperature 97.11 [degF] Delilah Ellis Jr., DO Work Phone: [employer] [facility] 10-29-2024 10:45-0500 Diastolic blood pressure 70 mm[Hg] Delilah Ellis Jr., DO Work Phone: [facility] [employer] [facility] 10-29-2024 10:45-0500 Heart rate 52 /min Delilah Ellis Jr., [facility] 10-29-2024 10:45-0500 Respiratory rate 16 /min Delilah Ellis Jr., DO Work Phone: [employer] [facility] 10-29-2024 10:45-0500 SaO2% (BldA) [Mass fraction] 97 % Delilah Ellis Jr., DO [facility] 10-29-2024 10:45-0500 Systolic blood pressure 156 mm[Hg] Delilah Ellis Jr., DO [facility] 10-29-2024 09:09-0500 Body height 165.1 cm Delilah Ellis Jr., DO Work Phone: [employer] [facility] 10-29-2024 09:09-0500 Body mass index (BMI) [Ratio] 35.78 kg/m2 Delilah Ellis Jr., DO Work Phone: [employer] [facility] 10-29-2024 09:09-0500 Body weight 97.52 kg Delilah Ellis Jr., DO [facility] 10-23-2024 08:04-0500 Body height 165.1 cm Delilah Ellis Jr., DO Work Phone: [facility] 10-23-2024 08:04-0500 Body mass index (BMI) [Ratio] 35.91 kg/m2 Delilah Ellis Jr., DO Work Phone: [facility] 10-23-2024 08:04-0500 Body weight 97.89 kg Delilah Ellis Jr., [facility] 10-23-2024 08:04-0500 Diastolic blood pressure 60 mm[Hg] Delilah Ellis Jr., DO Work Phone: [facility] 10-23-2024 08:04-0500 Heart rate 52 /min Delilah Ellis Jr. [facility] 10-23-2024 08:04-0500 SaO2% (BldA) [Mass fraction] 97 % Delilah Ellis Jr. DO [facility] 10-23-2024 08:04-0500 Systolic blood pressure 115 mm[Hg] Delilah Ellis Jr., DO [facility] 10-09-2024 13:41-0500 Body height 165.1 cm Fernie Reggie DO Work Phone: [facility] 10-09-2024 13:41-0500 Body mass index (BMI) [Ratio] 35.43 kg/m2 Fernie Paredes DO Work Phone: [facility] 10-09-2024 13:41-0500 Body temperature 97.11 [degF] Fernie Paredes DO Work Phone: [facility] 10-09-2024 13:41-0500 Body weight 96.57 kg Fernie Paredes DO Work Phone: [facility] 10-09-2024 13:41-0500 Diastolic blood pressure 68 mm[Hg] Fernie Paredes DO Work Phone: [facility] 10-09-2024 13:41-0500 Heart rate 53 /min Fernie Paredes DO Work Phone: [facility] 10-09-2024 13:41-0500 Respiratory rate 14 /min Fernie Paredes DO Work Phone: [facility] 10-09-2024 13:41-0500 SaO2% (BldA) [Mass fraction] 95 % Fernie Paredes DO Work Phone: [facility] 10-09-2024 13:41-0500 Systolic blood pressure 115 mm[Hg] Fernie Paredes DO Work Phone: [facility] 09-19-2024 10:58-0500 Body height 165.1 cm Naty Bhakta MD Work Phone: [facility] 09-19-2024 10:58-0500 Body mass index (BMI) [Ratio] 36.24 kg/m2 Naty Bhakta MD Work Phone: [facility] 09-19-2024 10:58-0500 Body temperature 97.11 [degF] Naty Bhakta MD Work Phone: [facility] 09-19-2024 10:58-0500 Body weight 98.79 kg Naty Bhakta MD Work Phone: [facility] 09-19-2024 10:58-0500 Diastolic blood pressure 60 mm[Hg] Naty Bhakta MD Work Phone: [facility] Comment on above: manual bp check 09-19-2024 10:58-0500 Heart rate 66 /min Naty Bhakta MD Work Phone: [facility] 09-19-2024 10:58-0500 Respiratory rate 14 /min Naty Bhakta MD Work Phone: [facility] 09-19-2024 10:58-0500 SaO2% (BldA) [Mass fraction] 97 % Naty Bhakta MD Work Phone: [facility] 09-19-2024 10:58-0500 Systolic blood pressure 122 mm[Hg] Naty Bhakta MD Work Phone: [facility] Comment on above: manual bp check 08-30-2024 15:07-0500 Body height 165.1 cm Gonsalo Blackwood MD Work Phone: [facility] 08-30-2024 15:07-0500 Body mass index (BMI) [Ratio] 36.48 kg/m2 Gonsalo Blackwood MD Work Phone: [facility] 08-30-2024 15:07-0500 Body weight 99.43 kg Gonsalo Blackwood MD Work Phone: [facility] 07-10-2024 13:52-0400 Body height 165.1 cm Fernie Paredes DO Work Phone: [facility] 07-10-2024 13:52-0400 Body mass index (BMI) [Ratio] 36.24 kg/m2 Fernie Paredes DO Work Phone: [facility] 07-10-2024 13:52-0400 Body temperature 97.5 [degF] Fernie Paredes DO Work Phone: [facility] 07-10-2024 13:52-0400 Body weight 98.79 kg Fernie Paredes DO Work Phone: [facility] 07-10-2024 13:52-0400 Diastolic blood pressure 60 mm[Hg] Fernie Paredes DO Work Phone: [facility] 07-10-2024 13:52-0400 Heart rate 68 /min Fernie Brown DO Work Phone: [facility] 07-10-2024 13:52-0400 Respiratory rate 14 /min Fernie Paredes DO Work Phone: [facility] 07-10-2024 13:52-0400 SaO2% (BldA) [Mass fraction] 96 % Fernie Paredes DO Work Phone: [facility] 07-10-2024 13:52-0400 Systolic blood pressure 129 mm[Hg] Fernie Paredes DO Work Phone: [facility] 05-22-2024 10:10-0400 Body height 165.1 cm Brian Brush [employer] Work Phone: [facility] 05-22-2024 10:10-0400 Body mass index (BMI) [Ratio] 35.78 kg/m2 Brian Brush [employer] Work Phone: [facility] 05-22-2024 10:10-0400 Body weight 97.52 kg Brian Brush [employer] Work Phone: [facility] 05-22-2024 10:10-0400 Diastolic blood pressure 68 mm[Hg] Brian Brush [employer] Work Phone: [facility] 05-22-2024 10:10-0400 Heart rate 52 /min Brian Brush [employer] Work Phone: [facility] 05-22-2024 10:10-0400 SaO2% (BldA) [Mass fraction] 95 % Brian Brush [employer] Work Phone: [facility] 05-22-2024 10:10-0400 Systolic blood pressure 153 mm[Hg] Brian Brush [employer] Work Phone: [facility] 05-03-2024 15:37-0400 Diastolic blood pressure 78 mm[Hg] Isreal Sigala MD Work Phone: [facility] 05-03-2024 15:37-0400 Heart rate 79 /min Isrela Sigala MD Work Phone: [facility] 05-03-2024 15:37-0400 Respiratory rate 16 /min Isreal Sigala MD Work Phone: [facility] 05-03-2024 15:37-0400 SaO2% (BldA) [Mass fraction] 94 % Isreal Sigala MD Work Phone: [facility] 05-03-2024 15:37-0400 Systolic blood pressure 170 mm[Hg] Isreal Sigala MD Work Phone: [facility] 05-03-2024 14:55-0400 Body temperature 97.3 [degF] Isreal Sigala MD Work Phone: [facility] 05-03-2024 09:34-0400 Body height 165.1 cm Isreal Sigala MD Work Phone: [facility] 05-03-2024 09:34-0400 Body mass index (BMI) [Ratio] 36.44 kg/m2 Isreal Sigala MD Work Phone: [facility] 05-03-2024 09:34-0400 Body weight 99.34 kg Isreal Sigala MD Work Phone: [facility] 04-17-2024 13:05-0400 Body height 165.1 cm Fernie Paredes DO Work Phone: [facility] 04-17-2024 13:05-0400 Body mass index (BMI) [Ratio] 36.59 kg/m2 Fernie Paredes DO Work Phone: [facility] 04-17-2024 13:05-0400 Body temperature 97.5 [degF] Fernie Paredes DO Work Phone: [facility] 04-17-2024 13:05-0400 Body weight 99.75 kg Fernie Paredes DO Work Phone: [facility] 04-17-2024 13:05-0400 Diastolic blood pressure 60 mm[Hg] Fernie Paredes DO Work Phone: [facility] 04-17-2024 13:05-0400 Heart rate 63 /min Fernie Paredes DO Work Phone: [facility] 04-17-2024 13:05-0400 Respiratory rate 14 /min Fernie Paredes DO Work Phone: [facility] 04-17-2024 13:05-0400 SaO2% (BldA) [Mass fraction] 99 % Fernie Paredes DO Work Phone: [facility] 04-17-2024 13:05-0400 Systolic blood pressure 140 mm[Hg] Fernie Paredes DO Work Phone: [facility] 04-04-2024 13:46-0400 Body height 165.1 cm Avivagiovanny Mera [employer] Work Phone: [facility] 04-04-2024 13:46-0400 Body mass index (BMI) [Ratio] 36.74 kg/m2 Aviva Samaria [employer] Work Phone: [facility] 04-04-2024 13:46-0400 Body weight 100.15 kg Avivagiovanny Mera [employer] Work Phone: [facility] 04-04-2024 13:46-0400 Diastolic blood pressure 80 mm[Hg] Aviva Samaria [employer] Work Phone: [facility] 04-04-2024 13:46-0400 Heart rate 73 /min Aviva Samaria [employer] Work Phone: [facility] 04-04-2024 13:46-0400 Respiratory rate 18 /min Aviva Samaria [employer] Work Phone: [facility] 04-04-2024 13:46-0400 SaO2% (BldA) [Mass fraction] 97 % Aviva Samaria [employer] Work Phone: [facility] 04-04-2024 13:46-0400 Systolic blood pressure 132 mm[Hg] Aviva Samaria [employer] Work Phone: [facility] 03-12-2024 14:12-0400 Body height 165.1 cm Aviva Samaria [employer] Work Phone: [facility] 03-12-2024 14:12-0400 Body mass index (BMI) [Ratio] 36.68 kg/m2 Aviva Samaria [employer] Work Phone: [facility] 03-12-2024 14:12-0400 Body weight 99.97 kg Aviva Mera CNP Work Phone: [facility] 03-12-2024 14:12-0400 Diastolic blood pressure 64 mm[Hg] Aviva Mera CNP Work Phone: [facility] 03-12-2024 14:12-0400 Heart rate 64 /min Aviva Mera CNP Work Phone: [facility] 03-12-2024 14:12-0400 SaO2% (BldA) [Mass fraction] 98 % Aviva Mera CNP Work Phone: [facility] 03-12-2024 14:12-0400 Systolic blood pressure 128 mm[Hg] Aviva Mera CNP Work Phone: [facility] 01-23-2024 12:46-0400 Body height 165.1 cm Fernie Paredes DO Work Phone: [facility] 01-23-2024 12:46-0400 Body mass index (BMI) [Ratio] 36.28 kg/m2 Fernie Paredes DO Work Phone: [facility] 01-23-2024 12:46-0400 Body temperature 97.39 [degF] Fernie Paredes DO Work Phone: [facility] 01-23-2024 12:46-0400 Body weight 98.88 kg Fernie Paredes DO Work Phone: [facility] 01-23-2024 12:46-0400 Diastolic blood pressure 61 mm[Hg] Fernie Paredes DO Work Phone: [facility] 01-23-2024 12:46-0400 Heart rate 65 /min Fernie Paredes DO Work Phone: [facility] 01-23-2024 12:46-0400 Respiratory rate 18 /min Fernie Paredes DO Work Phone: [facility] 01-23-2024 12:46-0400 SaO2% (BldA) [Mass fraction] 97 % Fernie Paredes DO Work Phone: [facility] 01-23-2024 12:46-0400 Systolic blood pressure 136 mm[Hg] Fernie Paredes DO Work Phone: [facility] 01-10-2024 12:30-0400 Body height 165.1 cm Garry Stephens MD Work Phone: [facility] 01-10-2024 12:30-0400 Body mass index (BMI) [Ratio] 35.45 kg/m2 Garry Stephens MD Work Phone: [facility] 01-10-2024 12:30-0400 Body weight 96.62 kg Garry Stephens MD Work Phone: [facility] 01-06-2024 11:02-0400 Diastolic blood pressure 88 mm[Hg] Aguilar Alexandra [employer] Work Phone: [facility] 01-06-2024 11:02-0400 Systolic blood pressure 153 mm[Hg] Aguilarsathish Alexandra [employer] Work Phone: [facility] 01-06-2024 10:56-0400 Body height 165.1 cm Aguilar Alexandra [employer] Work Phone: [facility] 01-06-2024 10:56-0400 Body mass index (BMI) [Ratio] 35.78 kg/m2 Aguilar Alexandra [employer] Work Phone: [facility] 01-06-2024 10:56-0400 Body weight 97.52 kg Aguilar Alexandra [employer] Work Phone: [facility] 01-06-2024 10:56-0400 Heart rate 56 /min Aguilar Alexandra [employer] Work Phone: [facility] 01-06-2024 10:56-0400 SaO2% (BldA) [Mass fraction] 98 % Aguilar Alexandra [employer] Work Phone: [facility] 11-08-2023 08:37-0500 Body height 165.1 cm Kandice Christie MD Work Phone: [facility] 11-08-2023 08:37-0500 Body mass index (BMI) [Ratio] 35.49 kg/m2 Kandice Christie MD Work Phone: [facility] 11-08-2023 08:37-0500 Body weight 96.75 kg Kandice Christie MD Work Phone: [facility] 11-08-2023 08:37-0500 Diastolic blood pressure 78 mm[Hg] Kandice Christie MD Work Phone: [facility] 11-08-2023 08:37-0500 Heart rate 72 /min Kandice Christie MD Work Phone: [facility] 11-08-2023 08:37-0500 SaO2% (BldA) [Mass fraction] 94 % Kandice Christie MD Work Phone: [facility] 11-08-2023 08:37-0500 Systolic blood pressure 119 mm[Hg] Kandice Christie MD Work Phone: [facility] 11-02-2023 10:09-0500 Body height 165.1 cm Monse Shipley MD Work Phone: [facility] 11-02-2023 10:09-0500 Body mass index (BMI) [Ratio] 35.51 kg/m2 Monse Shipley MD Work Phone: [facility] 11-02-2023 10:09-0500 Body temperature 97 [degF] Monse Shipley MD Work Phone: [facility] 11-02-2023 10:09-0500 Body weight 96.8 kg Monse Shipley MD Work Phone: [facility] 11-02-2023 10:09-0500 Diastolic blood pressure 64 mm[Hg] Monse Shipley MD Work Phone: [facility] 11-02-2023 10:09-0500 Heart rate 78 /min Monse Shipley MD Work Phone: [facility] 11-02-2023 10:09-0500 Respiratory rate 18 /min Monse Shipley MD Work Phone: [facility] 11-02-2023 10:09-0500 SaO2% (BldA) [Mass fraction] 97 % Monse Shipley MD Work Phone: [facility] 11-02-2023 10:09-0500 Systolic blood pressure 130 mm[Hg] Monse Shipley MD Work Phone: [facility] 10-31-2023 09:56-0500 Diastolic blood pressure 68 mm[Hg] Fernie Paredes DO Work Phone: [facility] 10-31-2023 09:56-0500 Systolic blood pressure 128 mm[Hg] Fernie Paredes DO Work Phone: [facility] 10-31-2023 09:55-0500 Body height 165 cm Fernie Paredes DO Work Phone: [facility] 10-31-2023 09:55-0500 Body mass index (BMI) [Ratio] 35.82 kg/m2 Fernie Paredes DO Work Phone: [facility] 10-31-2023 09:55-0500 Body temperature 97.2 [degF] Fernie Paredes DO Work Phone: [facility] 10-31-2023 09:55-0500 Body weight 97.52 kg Fernie Paredes DO Work Phone: [facility] 10-31-2023 09:55-0500 Heart rate 68 /min Fernie Brown DO Work Phone: [facility] 10-31-2023 09:55-0500 Respiratory rate 14 /min Fernie Brown DO Work Phone: [facility] 10-31-2023 09:55-0500 SaO2% (BldA) [Mass fraction] 98 % Fernie Paredes DO Work Phone: [facility] 10-26-2023 13:54-0500 Body height 165.1 cm Fernando Davison MD Work Phone: [facility] 10-26-2023 13:54-0500 Body mass index (BMI) [Ratio] 35.16 kg/m2 Fernando Davison MD Work Phone: [facility] 10-26-2023 13:54-0500 Body weight 95.84 kg Fernando Davison MD Work Phone: [facility] 10-26-2023 13:54-0500 Diastolic blood pressure 72 mm[Hg] Fernando Davison MD Work Phone: [facility] 10-26-2023 13:54-0500 Heart rate 81 /min Fernando Davison MD Work Phone: [facility] 10-26-2023 13:54-0500 SaO2% (BldA) [Mass fraction] 96 % Fernando Davison MD Work Phone: [facility] 10-26-2023 13:54-0500 Systolic blood pressure 128 mm[Hg] Fernando Davison MD Work Phone: [facility] 10-19-2023 09:33-0500 Diastolic blood pressure 81 mm[Hg] Naty Bhakta MD Work Phone: [facility] 10-19-2023 09:33-0500 Heart rate 61 /min Naty Bhakta MD Work Phone: [facility] 10-19-2023 09:33-0500 Systolic blood pressure 133 mm[Hg] Naty Bhakta MD Work Phone: [facility] 09-28-2023 10:22-0500 Body mass index (BMI) [Ratio] 35.21 kg/m2 Monse Shipley MD Work Phone: [facility] 09-28-2023 10:22-0500 Body temperature 96.91 [degF] Monse Shipley MD Work Phone: [facility] 09-28-2023 10:22-0500 Body weight 95.98 kg Monse Shipley MD Work Phone: [facility] 09-28-2023 10:22-0500 Diastolic blood pressure 85 mm[Hg] Monse Shipley MD Work Phone: [facility] 09-28-2023 10:22-0500 Heart rate 60 /min Monse Shipley MD Work Phone: [facility] 09-28-2023 10:22-0500 Respiratory rate 16 /min Monse Shipley MD Work Phone: [facility] 09-28-2023 10:22-0500 SaO2% (BldA) [Mass fraction] 98 % Monse Shipley MD Work Phone: [facility] 09-28-2023 10:22-0500 Systolic blood pressure 129 mm[Hg] Monse Shipley MD Work Phone: [facility] 09-26-2023 12:22-0500 Body height 165.1 cm Garry Stephens MD Work Phone: [facility] 09-26-2023 12:22-0500 Body mass index (BMI) [Ratio] 35.78 kg/m2 Garry Stephens MD Work Phone: [facility] 09-26-2023 12:22-0500 Body weight 97.52 kg Garry Stephens MD Work Phone: [facility] 09-21-2023 10:19-0500 Body height 165.1 cm Naty Bhakta MD Work Phone: [facility] 09-21-2023 10:19-0500 Body mass index (BMI) [Ratio] 35.93 kg/m2 Naty Bhakta MD Work Phone: [facility] 09-21-2023 10:19-0500 Body temperature 98.4 [degF] Naty Bhakta MD Work Phone: [facility] 09-21-2023 10:19-0500 Body weight 97.93 kg Naty Bhakta MD Work Phone: [facility] 09-21-2023 10:19-0500 Diastolic blood pressure 62 mm[Hg] Naty Bhakta MD Work Phone: [facility] 09-21-2023 10:19-0500 Heart rate 67 /min Naty Bhakta MD Work Phone: [facility] 09-21-2023 10:19-0500 Respiratory rate 18 /min Naty Bhakta MD Work Phone: [facility] 09-21-2023 10:19-0500 SaO2% (BldA) [Mass fraction] 96 % Naty Bhakta MD Work Phone: [facility] 09-21-2023 10:19-0500 Systolic blood pressure 129 mm[Hg] Naty Bhakta MD Work Phone: [facility] 09-20-2023 12:48-0500 Body height 165.1 cm Dawn Uriarte DPM Work Phone: [facility] 09-20-2023 12:48-0500 Body mass index (BMI) [Ratio] 35.94 kg/m2 Dawn Uriarte DPM Work Phone: [facility] 09-20-2023 12:48-0500 Body weight 97.98 kg Dawn Uriarte DPM Work Phone: [facility] 09-20-2023 12:48-0500 Diastolic blood pressure 80 mm[Hg] Dawn Uriarte DPM Work Phone: [facility] 09-20-2023 12:48-0500 Heart rate 65 /min Dawn Uriarte DPM Work Phone: [facility] 09-20-2023 12:48-0500 Systolic blood pressure 150 mm[Hg] Dawn Uriarte DPM Work Phone: [facility] 09-08-2023 11:10-0500 Body mass index (BMI) [Ratio] 35.98 kg/m2 Monse Shipley MD Work Phone: [facility] 09-08-2023 11:10-0500 Body temperature 97.11 [degF] Monse Shipley MD Work Phone: [facility] 09-08-2023 11:10-0500 Body weight 98.07 kg Monse Shipley MD Work Phone: [facility] 09-08-2023 11:10-0500 Diastolic blood pressure 84 mm[Hg] Monse Shipley MD Work Phone: [facility] 09-08-2023 11:10-0500 Heart rate 50 /min Monse Shipley MD Work Phone: [facility] 09-08-2023 11:10-0500 Respiratory rate 16 /min Monse Shipley MD Work Phone: [facility] 09-08-2023 11:10-0500 SaO2% (BldA) [Mass fraction] 96 % Monse Shipley MD Work Phone: [facility] 09-08-2023 11:10-0500 Systolic blood pressure 128 mm[Hg] Monse Shipley MD Work Phone: [facility] 08-29-2023 09:13-0500 Body temperature 97.6 [degF] [facility] 08-29-2023 09:13-0500 Diastolic blood pressure 76 mm[Hg] [facility] 08-29-2023 09:13-0500 Heart rate 69 /min [facility] 08-29-2023 09:13-0500 Respiratory rate 16 /min [facility] 08-29-2023 09:13-0500 Systolic blood pressure 133 mm[Hg] [facility] 08-29-2023 08:14-0500 Body height 165.1 cm [facility] 08-29-2023 08:14-0500 SaO2% (BldA) [Mass fraction] 95 % [facility] 08-28-2023 08:16-0500 Body temperature 98 [degF] [facility] 08-28-2023 08:16-0500 Diastolic blood pressure 61 mm[Hg] [facility] 08-28-2023 08:16-0500 Heart rate 77 /min [facility] 08-28-2023 08:16-0500 Respiratory rate 18 /min [facility] 08-28-2023 08:16-0500 SaO2% (BldA) [Mass fraction] 95 % [facility] 08-28-2023 08:16-0500 Systolic blood pressure 144 mm[Hg] [facility] 08-27-2023 08:33-0400 Body temperature 97.5 [degF] [facility] 08-27-2023 08:33-0400 Diastolic blood pressure 78 mm[Hg] [facility] 08-27-2023 08:33-0400 Heart rate 61 /min [facility] 08-27-2023 08:33-0400 Respiratory rate 18 /min [facility] 08-27-2023 08:33-0400 SaO2% (BldA) [Mass fraction] 99 % [facility] 08-27-2023 08:33-0400 Systolic blood pressure 134 mm[Hg] [facility] 08-26-2023 09:58-0400 Body temperature 97.2 [degF] [facility] 08-26-2023 09:58-0400 Diastolic blood pressure 53 mm[Hg] [facility] 08-26-2023 09:58-0400 Heart rate 65 /min [facility] 08-26-2023 09:58-0400 Respiratory rate 16 /min [facility] 08-26-2023 09:58-0400 SaO2% (BldA) [Mass fraction] 98 % [facility] 08-26-2023 09:58-0400 Systolic blood pressure 152 mm[Hg] [facility] 08-26-2023 08:47-0400 Body height 165.1 cm [facility] 08-25-2023 09:30-0400 Body temperature 97.9 [degF] [facility] 08-25-2023 09:30-0400 Diastolic blood pressure 57 mm[Hg] [facility] 08-25-2023 09:30-0400 Heart rate 68 /min [facility] 08-25-2023 09:30-0400 Respiratory rate 16 /min [facility] 08-25-2023 09:30-0400 SaO2% (BldA) [Mass fraction] 96 % [facility] 08-25-2023 09:30-0400 Systolic blood pressure 139 mm[Hg] [facility] 08-25-2023 08:29-0400 Body height 165.1 cm [facility] 08-24-2023 09:55-0400 Body temperature 97.4 [degF] [facility] 08-24-2023 09:55-0400 Diastolic blood pressure 88 mm[Hg] [facility] 08-24-2023 09:55-0400 Heart rate 68 /min [facility] 08-24-2023 09:55-0400 Respiratory rate 16 /min [facility] 08-24-2023 09:55-0400 SaO2% (BldA) [Mass fraction] 97 % [facility] 08-24-2023 09:55-0400 Systolic blood pressure 151 mm[Hg] [facility] 08-24-2023 08:55-0400 Body height 165.1 cm [facility] 08-23-2023 13:37-0400 Body height 165.1 cm Dawn Uriarte DPM Work Phone: [facility] 08-23-2023 13:37-0400 Body mass index (BMI) [Ratio] 35.45 kg/m2 Dawn Uriarte DPM Work Phone: [facility] 08-23-2023 13:37-0400 Body weight 96.62 kg Dawn Uriarte DPM Work Phone: [facility] 08-23-2023 13:37-0400 Diastolic blood pressure 64 mm[Hg] Dawn Uriarte DPM Work Phone: [facility] 08-23-2023 13:37-0400 Systolic blood pressure 122 mm[Hg] Dawn Uriarte DPM Work Phone: [facility] 08-23-2023 09:43-0400 Diastolic blood pressure 68 mm[Hg] [facility] 08-23-2023 09:43-0400 Heart rate 71 /min [facility] 08-23-2023 09:43-0400 Respiratory rate 16 /min [facility] 08-23-2023 09:43-0400 Systolic blood pressure 150 mm[Hg] [facility] 08-23-2023 08:42-0400 Body height 165.1 cm [facility] 08-23-2023 08:42-0400 Body mass index (BMI) [Ratio] 34.9 kg/m2 [facility] 08-23-2023 08:42-0400 Body temperature 96.7 [degF] [facility] 08-23-2023 08:42-0400 Body weight 95.25 kg [facility] 08-23-2023 08:42-0400 SaO2% (BldA) [Mass fraction] 94 % [facility] 08-22-2023 10:02-0400 Body temperature 97.1 [degF] [facility] 08-22-2023 10:02-0400 Diastolic blood pressure 73 mm[Hg] [facility] 08-22-2023 10:02-0400 Heart rate 64 /min [facility] 08-22-2023 10:02-0400 Respiratory rate 16 /min [facility] 08-22-2023 10:02-0400 SaO2% (BldA) [Mass fraction] 94 % [facility] 08-22-2023 10:02-0400 Systolic blood pressure 141 mm[Hg] [facility] 08-22-2023 08:41-0400 Body mass index (BMI) [Ratio] 34.9 kg/m2 [facility] 08-22-2023 08:41-0400 Body weight 95.25 kg [facility] 08-21-2023 08:55-0400 Body temperature 97.9 [degF] [facility] 08-21-2023 08:55-0400 Diastolic blood pressure 69 mm[Hg] [facility] 08-21-2023 08:55-0400 Heart rate 61 /min [facility] 08-21-2023 08:55-0400 Respiratory rate 16 /min [facility] 08-21-2023 08:55-0400 SaO2% (BldA) [Mass fraction] 97 % [facility] 08-21-2023 08:55-0400 Systolic blood pressure 122 mm[Hg] [facility] 08-20-2023 09:03-0400 Body temperature 98.1 [degF] [facility] 08-20-2023 09:03-0400 Diastolic blood pressure 72 mm[Hg] [facility] 08-20-2023 09:03-0400 Heart rate 67 /min [facility] 08-20-2023 09:03-0400 Respiratory rate 17 /min [facility] 08-20-2023 09:03-0400 SaO2% (BldA) [Mass fraction] 93 % [facility] 08-20-2023 09:03-0400 Systolic blood pressure 124 mm[Hg] [facility] 08-19-2023 10:34-0400 Diastolic blood pressure 60 mm[Hg] [facility] 08-19-2023 10:34-0400 Heart rate 72 /min [facility] 08-19-2023 10:34-0400 Systolic blood pressure 135 mm[Hg] [facility] 08-19-2023 09:19-0400 Body height 165.1 cm [facility] 08-19-2023 09:19-0400 Body temperature 97.1 [degF] [facility] 08-19-2023 09:19-0400 Respiratory rate 16 /min [facility] 08-19-2023 09:19-0400 SaO2% (BldA) [Mass fraction] 96 % [facility] 08-18-2023 09:51-0400 Diastolic blood pressure 61 mm[Hg] [facility] 08-18-2023 09:51-0400 Heart rate 65 /min [facility] 08-18-2023 09:51-0400 Systolic blood pressure 128 mm[Hg] [facility] 08-18-2023 08:58-0400 Body height 165.1 cm [facility] 08-18-2023 08:58-0400 Body mass index (BMI) [Ratio] 34.9 kg/m2 [facility] 08-18-2023 08:58-0400 Body temperature 97.1 [degF] [facility] 08-18-2023 08:58-0400 Body weight 95.25 kg [facility] 08-18-2023 08:58-0400 Respiratory rate 16 /min [facility] 08-18-2023 08:58-0400 SaO2% (BldA) [Mass fraction] 97 % [facility] 08-17-2023 09:33-0400 Body temperature 97.2 [degF] [facility] 08-17-2023 09:33-0400 Diastolic blood pressure 67 mm[Hg] [facility] 08-17-2023 09:33-0400 Heart rate 65 /min [facility] 08-17-2023 09:33-0400 Respiratory rate 16 /min [facility] 08-17-2023 09:33-0400 SaO2% (BldA) [Mass fraction] 95 % [facility] 08-17-2023 09:33-0400 Systolic blood pressure 134 mm[Hg] [facility] 08-17-2023 08:35-0400 Body height 165.1 cm [facility] 08-16-2023 09:49-0400 Body temperature 97.2 [degF] [facility] 08-16-2023 09:49-0400 Diastolic blood pressure 58 mm[Hg] [facility] 08-16-2023 09:49-0400 Heart rate 65 /min [facility] 08-16-2023 09:49-0400 Respiratory rate 16 /min [facility] 08-16-2023 09:49-0400 SaO2% (BldA) [Mass fraction] 97 % [facility] 08-16-2023 09:49-0400 Systolic blood pressure 139 mm[Hg] [facility] 08-16-2023 08:49-0400 Body height 165.1 cm [facility] 08-15-2023 11:34-0400 Body height 165.1 cm Monse Shipley MD Work Phone: [facility] 08-15-2023 11:34-0400 Body mass index (BMI) [Ratio] 35.51 kg/m2 Monse Shipley MD Work Phone: [facility] 08-15-2023 11:34-0400 Body temperature 97.39 [degF] Monse Shipley MD Work Phone: [facility] 08-15-2023 11:34-0400 Body weight 96.8 kg Monse Shipley MD Work Phone: [facility] 08-15-2023 11:34-0400 Diastolic blood pressure 60 mm[Hg] Monse Shipley MD Work Phone: [facility] 08-15-2023 11:34-0400 Heart rate 64 /min Monse Shipley MD Work Phone: [facility] 08-15-2023 11:34-0400 Respiratory rate 16 /min Monse Shipley MD Work Phone: [facility] 08-15-2023 11:34-0400 SaO2% (BldA) [Mass fraction] 98 % Monse Shipley MD Work Phone: [facility] 08-15-2023 11:34-0400 Systolic blood pressure 138 mm[Hg] Monse Shipley MD Work Phone: [facility] 08-15-2023 09:41-0400 Body temperature 97.2 [degF] [facility] 08-15-2023 09:41-0400 Diastolic blood pressure 66 mm[Hg] [facility] 08-15-2023 09:41-0400 Heart rate 56 /min [facility] 08-15-2023 09:41-0400 Respiratory rate 16 /min [facility] 08-15-2023 09:41-0400 Systolic blood pressure 143 mm[Hg] [facility] 08-15-2023 08:38-0400 Body height 165.1 cm [facility] 08-12-2023 09:44-0400 Body temperature 97.6 [degF] [facility] 08-12-2023 09:44-0400 Diastolic blood pressure 67 mm[Hg] [facility] 08-12-2023 09:44-0400 Heart rate 63 /min [facility] 08-12-2023 09:44-0400 Respiratory rate 16 /min [facility] 08-12-2023 09:44-0400 SaO2% (BldA) [Mass fraction] 96 % [facility] 08-12-2023 09:44-0400 Systolic blood pressure 143 mm[Hg] [facility] 08-12-2023 08:40-0400 Body height 165.1 cm [facility] 08-11-2023 12:46-0400 Body height 165.1 cm Dawn Uriarte DPM Work Phone: [facility] 08-11-2023 12:46-0400 Body mass index (BMI) [Ratio] 35.45 kg/m2 Dawn Uriarte DPM Work Phone: [facility] 08-11-2023 12:46-0400 Body weight 96.62 kg Dawn Uriarte DPM Work Phone: [facility] 08-11-2023 12:46-0400 Diastolic blood pressure 80 mm[Hg] Dawn COONM Work Phone: [facility] 08-11-2023 12:46-0400 Systolic blood pressure 150 mm[Hg] Dawn COONM Work Phone: [facility] 08-11-2023 10:06-0400 Body temperature 97.4 [degF] [facility] 08-11-2023 10:06-0400 Diastolic blood pressure 65 mm[Hg] [facility] 08-11-2023 10:06-0400 Heart rate 60 /min [facility] 08-11-2023 10:06-0400 Respiratory rate 16 /min [facility] 08-11-2023 10:06-0400 SaO2% (BldA) [Mass fraction] 97 % [facility] 08-11-2023 10:06-0400 Systolic blood pressure 125 mm[Hg] [facility] 08-11-2023 08:52-0400 Body height 165.1 cm [facility] 08-11-2023 08:52-0400 Body mass index (BMI) [Ratio] 34.9 kg/m2 [facility] 08-11-2023 08:52-0400 Body weight 95.25 kg [facility] 08-10-2023 09:33-0400 Diastolic blood pressure 73 mm[Hg] [facility] 08-10-2023 09:33-0400 Heart rate 62 /min [facility] 08-10-2023 09:33-0400 Respiratory rate 16 /min [facility] 08-10-2023 09:33-0400 Systolic blood pressure 140 mm[Hg] [facility] 08-10-2023 08:40-0400 Body height 165.1 cm [facility] 08-10-2023 08:40-0400 Body mass index (BMI) [Ratio] 34.9 kg/m2 [facility] 08-10-2023 08:40-0400 Body temperature 96.1 [degF] [facility] 08-10-2023 08:40-0400 Body weight 95.25 kg [facility] 08-10-2023 08:40-0400 SaO2% (BldA) [Mass fraction] 98 % [facility] 08-09-2023 09:29-0400 Body temperature 97.1 [degF] [facility] 08-09-2023 09:29-0400 Diastolic blood pressure 50 mm[Hg] [facility] 08-09-2023 09:29-0400 Heart rate 60 /min [facility] 08-09-2023 09:29-0400 Respiratory rate 16 /min [facility] 08-09-2023 09:29-0400 SaO2% (BldA) [Mass fraction] 97 % [facility] 08-09-2023 09:29-0400 Systolic blood pressure 134 mm[Hg] [facility] 08-09-2023 08:33-0400 Body height 165.1 cm [facility] 08-08-2023 09:54-0400 Body temperature 97.4 [degF] [facility] 08-08-2023 09:54-0400 Diastolic blood pressure 70 mm[Hg] [facility] 08-08-2023 09:54-0400 Heart rate 56 /min [facility] 08-08-2023 09:54-0400 Respiratory rate 16 /min [facility] 08-08-2023 09:54-0400 SaO2% (BldA) [Mass fraction] 98 % [facility] 08-08-2023 09:54-0400 Systolic blood pressure 150 mm[Hg] [facility] 08-08-2023 08:43-0400 Body height 165.1 cm [facility] 08-07-2023 07:58-0400 Body height 165.1 cm [facility] 08-07-2023 07:58-0400 Body temperature 98.2 [degF] [facility] 08-07-2023 07:58-0400 Diastolic blood pressure 85 mm[Hg] [facility] 08-07-2023 07:58-0400 Heart rate 61 /min [facility] 08-07-2023 07:58-0400 Respiratory rate 18 /min [facility] 08-07-2023 07:58-0400 SaO2% (BldA) [Mass fraction] 97 % [facility] 08-07-2023 07:58-0400 Systolic blood pressure 161 mm[Hg] [facility] 08-06-2023 09:16-0400 Body height 165.1 cm [facility] 08-06-2023 09:16-0400 Body temperature 97.8 [degF] [facility] 08-06-2023 09:16-0400 Diastolic blood pressure 68 mm[Hg] [facility] 08-06-2023 09:16-0400 Heart rate 60 /min [facility] 08-06-2023 09:16-0400 Respiratory rate 18 /min [facility] 08-06-2023 09:16-0400 SaO2% (BldA) [Mass fraction] 97 % [facility] 08-06-2023 09:16-0400 Systolic blood pressure 141 mm[Hg] [facility] 08-05-2023 09:30-0400 Body temperature 97.5 [degF] [facility] 08-05-2023 09:30-0400 Diastolic blood pressure 54 mm[Hg] [facility] 08-05-2023 09:30-0400 Heart rate 50 /min [facility] 08-05-2023 09:30-0400 Respiratory rate 16 /min [facility] 08-05-2023 09:30-0400 SaO2% (BldA) [Mass fraction] 97 % [facility] 08-05-2023 09:30-0400 Systolic blood pressure 118 mm[Hg] [facility] 08-05-2023 08:24-0400 Body height 165.1 cm [facility] 08-05-2023 08:24-0400 Body mass index (BMI) [Ratio] 34.9 kg/m2 [facility] 08-05-2023 08:24-0400 Body weight 95.25 kg [facility] 08-04-2023 12:18-0400 Body temperature 97.11 [degF] [facility] [address] [place] [address] 08-04-2023 12:18-0400 Diastolic blood pressure 72 mm[Hg] [facility] [address] [place] [address] 08-04-2023 12:18-0400 Heart rate 60 /min [facility] [address] [place] [address] 08-04-2023 12:18-0400 Respiratory rate 16 /min [facility] [address] [place] [address] 08-04-2023 12:18-0400 SaO2% (BldA) [Mass fraction] 98 % [facility] [address] [place] [address] 08-04-2023 12:18-0400 Systolic blood pressure 171 mm[Hg] [facility] [address] [place] [address] 08-04-2023 10:34-0400 Body height 165.1 cm Monse Shipley MD Work Phone: [facility] 08-04-2023 10:34-0400 Body mass index (BMI) [Ratio] 35.08 kg/m2 Monse Shipley MD Work Phone: [facility] 08-04-2023 10:34-0400 Body temperature 97.7 [degF] Monse Shipley MD Work Phone: [facility] 08-04-2023 10:34-0400 Body weight 95.62 kg Monse Shipley MD Work Phone: [facility] 08-04-2023 10:34-0400 Diastolic blood pressure 68 mm[Hg] Monse Shipley MD Work Phone: [facility] 08-04-2023 10:34-0400 Heart rate 62 /min Monse Shipley MD Work Phone: [facility] 08-04-2023 10:34-0400 Respiratory rate 16 /min Monse Shipley MD Work Phone: [facility] 08-04-2023 10:34-0400 SaO2% (BldA) [Mass fraction] 98 % Monse Shipley MD Work Phone: [facility] 08-04-2023 10:34-0400 Systolic blood pressure 114 mm[Hg] Monse Shipley MD Work Phone: [facility] 08-03-2023 14:01-0400 Body temperature 98.29 [degF] [facility] [address] [place] [address] 08-03-2023 14:01-0400 Diastolic blood pressure 55 mm[Hg] [facility] [address] [place] [address] 08-03-2023 14:01-0400 Heart rate 65 /min [facility] [address] [place] [address] 08-03-2023 14:01-0400 Respiratory rate 16 /min [facility] [address] [place] [address] 08-03-2023 14:01-0400 SaO2% (BldA) [Mass fraction] 98 % [facility] 5 [facility] 08-03-2023 14:01-0400 Systolic blood pressure 128 mm[Hg] [facility] 5 [facility] 08-02-2023 12:10-0400 Body temperature 96.91 [degF] [facility] 5 [facility] 08-02-2023 12:10-0400 Diastolic blood pressure 66 mm[Hg] [facility] 5 [facility] 08-02-2023 12:10-0400 Heart rate 69 /min [facility] 5 [facility] 08-02-2023 12:10-0400 Respiratory rate 16 /min [facility] 5 [facility] 08-02-2023 12:10-0400 SaO2% (BldA) [Mass fraction] 98 % [facility] 5 [facility] 08-02-2023 12:10-0400 Systolic blood pressure 142 mm[Hg] [facility] 5 [facility] 08-01-2023 09:16-0400 Body temperature 97.39 [degF] [facility] 2 [facility] 08-01-2023 09:16-0400 Diastolic blood pressure 73 mm[Hg] [facility] 2 [facility] 08-01-2023 09:16-0400 Heart rate 70 /min [facility] 2 [facility] 08-01-2023 09:16-0400 Respiratory rate 16 /min [facility] 2 [facility] 08-01-2023 09:16-0400 SaO2% (BldA) [Mass fraction] 97 % [facility] 2 [facility] 08-01-2023 09:16-0400 Systolic blood pressure 171 mm[Hg] [facility] 2 [facility] 07-31-2023 09:00-0400 Body temperature 97.2 [degF] [facility] 3 [facility] 07-31-2023 09:00-0400 Diastolic blood pressure 71 mm[Hg] [facility] 3 [facility] 07-31-2023 09:00-0400 Heart rate 68 /min [facility] 3 [facility] 07-31-2023 09:00-0400 Respiratory rate 18 /min [facility] 3 [facility] 07-31-2023 09:00-0400 SaO2% (BldA) [Mass fraction] 98 % [facility] 3 [facility] 07-31-2023 09:00-0400 Systolic blood pressure 148 mm[Hg] [facility] 3 [facility] 07-30-2023 08:03-0400 Body temperature 97.3 [degF] [facility] 3 [facility] 07-30-2023 08:03-0400 Diastolic blood pressure 67 mm[Hg] [facility] 3 [facility] 07-30-2023 08:03-0400 Heart rate 63 /min [facility] 3 [facility] 07-30-2023 08:03-0400 Respiratory rate 16 /min [facility] 3 [facility] 07-30-2023 08:03-0400 SaO2% (BldA) [Mass fraction] 98 % [facility] 3 [facility] 07-30-2023 08:03-0400 Systolic blood pressure 150 mm[Hg] [facility] 3 [facility] 07-29-2023 14:56-0400 Body temperature 97.7 [degF] [facility] 1 [facility] 07-29-2023 14:56-0400 Diastolic blood pressure 62 mm[Hg] [facility] 1 [facility] 07-29-2023 14:56-0400 Heart rate 69 /min [facility] 1 [facility] 07-29-2023 14:56-0400 Respiratory rate 16 /min [facility] 1 [facility] 07-29-2023 14:56-0400 SaO2% (BldA) [Mass fraction] 96 % [facility] 1 [facility] 07-29-2023 14:56-0400 Systolic blood pressure 138 mm[Hg] [facility] 1 [facility] 07-29-2023 11:15-0400 Body height 165.1 cm Monse Shipley MD Work Phone: [facility] 07-29-2023 11:15-0400 Body mass index (BMI) [Ratio] 35.28 kg/m2 Monse Shipley MD Work Phone: [facility] 07-29-2023 11:15-0400 Body temperature 97 [degF] Monse Shipley MD Work Phone: [facility] 07-29-2023 11:15-0400 Body weight 96.16 kg Monse Shipley MD Work Phone: [facility] 07-29-2023 11:15-0400 Diastolic blood pressure 68 mm[Hg] Monse Shipley MD Work Phone: [facility] 07-29-2023 11:15-0400 Heart rate 88 /min Monse Shipley MD Work Phone: [facility] 07-29-2023 11:15-0400 Respiratory rate 20 /min Monse Shipley MD Work Phone: [facility] 07-29-2023 11:15-0400 SaO2% (BldA) [Mass fraction] 95 % Monse Shipley MD Work Phone: [facility] 07-29-2023 11:15-0400 Systolic blood pressure 128 mm[Hg] Monse Shipley MD Work Phone: [facility] 07-28-2023 09:40-0400 Body height 165.1 cm Dawn Uriarte DPM Work Phone: [facility] 07-28-2023 09:40-0400 Body mass index (BMI) [Ratio] 35.11 kg/m2 Dawn Uriarte DPM Work Phone: [facility] 07-28-2023 09:40-0400 Body weight 95.71 kg Dawn Uriarte DPM Work Phone: [facility] 07-28-2023 09:40-0400 Diastolic blood pressure 80 mm[Hg] Dawn Uriarte DPM Work Phone: [facility] 07-28-2023 09:40-0400 Heart rate 81 /min Dawn Uriarte DPM Work Phone: [facility] 07-28-2023 09:40-0400 Systolic blood pressure 160 mm[Hg] Dawn COONM Work Phone: [facility] 07-22-2023 08:24-0400 Body height 165.1 cm Monse Shipley MD Work Phone: [facility] 07-22-2023 08:24-0400 Body mass index (BMI) [Ratio] 35.25 kg/m2 Monse Shipley MD Work Phone: [facility] 07-22-2023 08:24-0400 Body temperature 97.59 [degF] Monse Shipley MD Work Phone: [facility] 07-22-2023 08:24-0400 Body weight 96.07 kg Monse Shipley MD Work Phone: [facility] 07-22-2023 08:24-0400 Diastolic blood pressure 72 mm[Hg] Monse Shipley MD Work Phone: [facility] 07-22-2023 08:24-0400 Heart rate 75 /min Monse Shipley MD Work Phone: [facility] 07-22-2023 08:24-0400 Respiratory rate 17 /min Monse Shipley MD Work Phone: [facility] 07-22-2023 08:24-0400 SaO2% (BldA) [Mass fraction] 95 % Monse Shipley MD Work Phone: [facility] 07-22-2023 08:24-0400 Systolic blood pressure 134 mm[Hg] Monse Shipley MD Work Phone: [facility] 07-21-2023 13:09-0400 Body height 165.1 cm Dawn Uriarte DPM Work Phone: [facility] 07-21-2023 13:09-0400 Body mass index (BMI) [Ratio] 34.78 kg/m2 Dawn Cisnerosk DPM Work Phone: [facility] 07-21-2023 13:09-0400 Body weight 94.8 kg Dawn Cisnerosk DPM Work Phone: [facility] 07-21-2023 13:09-0400 Diastolic blood pressure 80 mm[Hg] Dawn Blaynek DPM Work Phone: [facility] 07-21-2023 13:09-0400 Systolic blood pressure 150 mm[Hg] Dawn Vuatek DPM Work Phone: [facility] 07-18-2023 09:49-0400 Body height 165.1 cm Dawn Mirellaatek DPM Work Phone: [facility] 07-18-2023 09:49-0400 Body mass index (BMI) [Ratio] 34.78 kg/m2 Dawn Cisnerosk DPM Work Phone: [facility] 07-18-2023 09:49-0400 Body weight 94.8 kg Dawn Vuatek DPM Work Phone: [facility] 07-18-2023 09:49-0400 Diastolic blood pressure 90 mm[Hg] Dawn Mirellaatek DPM Work Phone: [facility] 07-18-2023 09:49-0400 Systolic blood pressure 140 mm[Hg] Dawn Uriarte DPM Work Phone: [facility] 07-18-2023 08:47-0400 Body height 165.1 cm Monse Shipley MD Work Phone: [facility] 07-18-2023 08:47-0400 Body mass index (BMI) [Ratio] 34.78 kg/m2 Monse Shipley MD Work Phone: [facility] 07-18-2023 08:47-0400 Body temperature 96.8 [degF] Monse Shipley MD Work Phone: [facility] 07-18-2023 08:47-0400 Body weight 94.8 kg Monse Shipley MD Work Phone: [facility] 07-18-2023 08:47-0400 Diastolic blood pressure 72 mm[Hg] Monse Shipley MD Work Phone: [facility] 07-18-2023 08:47-0400 Heart rate 82 /min Monse Shipley MD Work Phone: [facility] 07-18-2023 08:47-0400 Respiratory rate 18 /min Monse Shipley MD Work Phone: [facility] 07-18-2023 08:47-0400 SaO2% (BldA) [Mass fraction] 97 % Monse Shipley MD Work Phone: [facility] 07-18-2023 08:47-0400 Systolic blood pressure 128 mm[Hg] Monse Shipley MD Work Phone: [facility] 07-13-2023 10:50-0400 Body height 165.1 cm Monse Shipley MD Work Phone: [facility] 07-13-2023 10:50-0400 Body mass index (BMI) [Ratio] 34.98 kg/m2 Monse Shipley MD Work Phone: [facility] 07-13-2023 10:50-0400 Body temperature 97.59 [degF] Monse Shipley MD Work Phone: [facility] 07-13-2023 10:50-0400 Body weight 95.35 kg Monse Shipley MD Work Phone: [facility] 07-13-2023 10:50-0400 Diastolic blood pressure 70 mm[Hg] Monse Shipley MD Work Phone: [facility] 07-13-2023 10:50-0400 Heart rate 64 /min Monse Shipley MD Work Phone: [facility] 07-13-2023 10:50-0400 Respiratory rate 16 /min Monse Shipley MD Work Phone: [facility] 07-13-2023 10:50-0400 SaO2% (BldA) [Mass fraction] 94 % Monse Shipley MD Work Phone: [facility] 07-13-2023 10:50-0400 Systolic blood pressure 126 mm[Hg] Monse Shipley MD Work Phone: [facility] 07-08-2023 10:29-0400 Diastolic blood pressure 58 mm[Hg] Dawn Uriarte DPM Work Phone: [facility] 07-08-2023 10:29-0400 Heart rate 57 /min Dawn Uriarte DPM Work Phone: [facility] 07-08-2023 10:29-0400 Respiratory rate 20 /min Dawn Uriarte DPM Work Phone: [facility] 07-08-2023 10:29-0400 SaO2% (BldA) [Mass fraction] 97 % Dawn Uriarte DPM Work Phone: [facility] 07-08-2023 10:29-0400 Systolic blood pressure 146 mm[Hg] Dawn Uriarte DPM Work Phone: [facility] 07-08-2023 10:14-0400 Body temperature 97.2 [degF] Dawn Uriarte DPM Work Phone: [facility] 07-08-2023 08:00-0400 Body height 165.1 cm Dawn Uriarte DPM Work Phone: [facility] 07-08-2023 08:00-0400 Body mass index (BMI) [Ratio] 34.95 kg/m2 Dawn COONM Work Phone: [facility] 07-08-2023 08:00-0400 Body weight 95.25 kg Dawn COONM Work Phone: [facility] 07-04-2023 09:44-0400 Body height 165.1 cm [facility] 07-04-2023 09:44-0400 Body mass index (BMI) [Ratio] 35.25 kg/m2 Monse Shipley MD Work Phone: [facility] [employer] [facility] 07-04-2023 09:44-0400 Body temperature 97.11 [degF] Monse Shipley MD Work Phone: [facility] [employer] [facility] 07-04-2023 09:44-0400 Body weight 96.07 kg Monse Shipley MD Work Phone: [facility] [employer] [facility] 07-04-2023 09:44-0400 Diastolic blood pressure 78 mm[Hg] Monse Shipley MD Work Phone: [facility] [employer] [facility] 07-04-2023 09:44-0400 Heart rate 63 /min Monse Shipley MD Work Phone: [facility] [employer] [facility] 07-04-2023 09:44-0400 Respiratory rate 15 /min Monse Shipley MD Work Phone: [facility] [employer] [facility] 07-04-2023 09:44-0400 SaO2% (BldA) [Mass fraction] 97 % Monse Shipley MD Work Phone: [facility] [employer] [facility] 07-04-2023 09:44-0400 Systolic blood pressure 124 mm[Hg] Monse Shipley MD Work Phone: [facility] [employer] [facility] 06-29-2023 11:11-0400 Body height 165.1 cm Fernie Paredes DO Work Phone: [facility] [employer] [facility] 06-29-2023 11:11-0400 Body mass index (BMI) [Ratio] 35.18 kg/m2 Fernie Paredes DO Work Phone: [employer] [facility] 06-29-2023 11:11-0400 Body temperature 97.5 [degF] Fernie Paredes DO Work Phone: [facility] [facility] 06-29-2023 11:11-0400 Body weight 95.89 kg Fernie Paredes DO Work Phone: [employer] [facility] 06-29-2023 11:11-0400 Diastolic blood pressure 67 mm[Hg] Fernie Paredes DO Work Phone: [facility] [facility] 06-29-2023 11:11-0400 Heart rate 58 /min Fernie Paredes DO Work Phone: [facility] 06-29-2023 11:11-0400 Respiratory rate 18 /min Fernie Paredes DO Work Phone: [facility] [employer] [facility] 06-29-2023 11:11-0400 SaO2% (BldA) [Mass fraction] 95 % Fernie Paredes DO Work Phone: [facility] [employer] [facility] 06-29-2023 11:11-0400 Systolic blood pressure 145 mm[Hg] Fernie Paredes DO Work Phone: [facility] [employer] [facility] 06-28-2023 13:16-0400 Body height 165.1 cm Dawn Vuatek DPM Work Phone: [facility] [employer] [facility] 06-28-2023 13:16-0400 Body mass index (BMI) [Ratio] 34.95 kg/m2 Dawn Swiatek DPM Work Phone: [facility] [employer] [facility] 06-28-2023 13:16-0400 Body weight 95.25 kg Dawn Swiatek DPM Work Phone: [facility] [employer] [facility] 06-28-2023 13:16-0400 Diastolic blood pressure 60 mm[Hg] Dawn Swiatek DPM Work Phone: [facility] [employer] [facility] 06-28-2023 13:16-0400 Systolic blood pressure 128 mm[Hg] Dawn Swiatek DPM Work Phone: [facility] [facility] 06-21-2023 08:27-0400 Body height 165.1 cm Garry Stephens MD Work Phone: [facility] [employer] 06-21-2023 08:27-0400 Body mass index (BMI) [Ratio] 34.95 kg/m2 Garry Stephens MD Work Phone: [facility] 06-21-2023 08:27-0400 Body weight 95.25 kg Garry Stephens MD Work Phone: [facility] [employer] [facility] 06-14-2023 09:13-0400 Body height 165.1 cm Dawn Mirellaatek DPM Work Phone: [facility] [employer] [facility] 06-14-2023 09:13-0400 Body mass index (BMI) [Ratio] 35.45 kg/m2 Dawn Swiatek DPM Work Phone: [facility] [employer] [facility] 06-14-2023 09:13-0400 Body weight 96.62 kg Dawn Swiatek DPM Work Phone: [facility] [employer] [facility] 06-14-2023 09:13-0400 Diastolic blood pressure 80 mm[Hg] Dawn Swiatek DPM Work Phone: [facility] [employer] [facility] 06-14-2023 09:13-0400 Heart rate 70 /min Dawn Swiatek DPM Work Phone: [facility] [employer] [facility] 06-14-2023 09:13-0400 Systolic blood pressure 160 mm[Hg] Dawn Swiatek DPM Work Phone: [facility] 05-10-2023 10:27-0400 Body height 165.1 cm Dawn Swiatek DPM Work Phone: [facility] [employer] [facility] 05-10-2023 10:27-0400 Body mass index (BMI) [Ratio] 34.95 kg/m2 Dawn Swiatek DPM Work Phone: [facility] [employer] [facility] 05-10-2023 10:27-0400 Body weight 95.25 kg Dawn Swiatek DPM Work Phone: [facility] 05-10-2023 10:27-0400 Diastolic blood pressure 78 mm[Hg] Dawn Vuatek DPM Work Phone: [facility] 05-10-2023 10:27-0400 Heart rate 69 /min Dawn Swiatek DPM Work Phone: [facility] 05-10-2023 10:27-0400 SaO2% (BldA) [Mass fraction] 97 % Dawn Uriarte DPM Work Phone: [facility] 05-10-2023 10:27-0400 Systolic blood pressure 140 mm[Hg] Danw Uriarte DPM Work Phone: [facility] 05-05-2023 12:32-0400 Body height 165.1 cm Dawn Uriarte DPM Work Phone: [facility] 05-05-2023 12:32-0400 Body mass index (BMI) [Ratio] 34.95 kg/m2 Dawn Uriarte DPM Work Phone: [facility] 05-05-2023 12:32-0400 Body weight 95.25 kg Dawn Uriarte DPM Work Phone: [facility] 05-05-2023 12:32-0400 Diastolic blood pressure 80 mm[Hg] Dawn Uriarte DPM Work Phone: [facility] 05-05-2023 12:32-0400 Heart rate 70 /min Dawn Uriarte DPM Work Phone: [facility] 05-05-2023 12:32-0400 Systolic blood pressure 140 mm[Hg] Dawn Uriarte DPM Work Phone: [facility] 05-02-2023 14:16-0400 Body height 165.1 cm Rosalee ELIZONDO Work Phone: [facility] 05-02-2023 14:16-0400 Body mass index (BMI) [Ratio] 34.95 kg/m2 Rosalee ELIZONDO Work Phone: [facility] 05-02-2023 14:16-0400 Body temperature 98.49 [degF] Rosalee ELIZONDO Work Phone: [facility] 05-02-2023 14:16-0400 Body weight 95.25 kg Rosalee Wolfe PA Work Phone: [facility] 05-02-2023 14:16-0400 Diastolic blood pressure 63 mm[Hg] Rosalee Nietoner PA Work Phone: [facility] 05-02-2023 14:16-0400 Heart rate 60 /min Rosalee Wolfe PA Work Phone: [facility] 05-02-2023 14:16-0400 Respiratory rate 18 /min Rosalee Nietoner PA Work Phone: [facility] 05-02-2023 14:16-0400 SaO2% (BldA) [Mass fraction] 96 % Rosalee Nietoner PA Work Phone: [facility] 05-02-2023 14:16-0400 Systolic blood pressure 145 mm[Hg] Rosalee Wolfe PA Work Phone: [facility] 04-29-2023 16:50-0400 Body height 165.1 cm Gonsalo Blackwood MD Work Phone: [facility] 04-29-2023 16:50-0400 Body mass index (BMI) [Ratio] 35.45 kg/m2 Gonsalo Blackwood MD Work Phone: [facility] 04-29-2023 16:50-0400 Body weight 96.62 kg Gonsalo Blackwood MD Work Phone: [facility] 04-27-2023 14:55-0400 Body mass index (BMI) [Ratio] 35.45 kg/m2 Fernando Davison MD Work Phone: [facility] 04-27-2023 14:55-0400 Body weight 96.62 kg Fernando Davison MD Work Phone: [facility] 04-27-2023 14:55-0400 Diastolic blood pressure 74 mm[Hg] Fernando Davison MD Work Phone: [facility] 04-27-2023 14:55-0400 Heart rate 78 /min Fernando Davison MD Work Phone: [facility] 04-27-2023 14:55-0400 SaO2% (BldA) [Mass fraction] 94 % Fernando Davison MD Work Phone: [facility] 04-27-2023 14:55-0400 Systolic blood pressure 130 mm[Hg] Fernando Davison MD Work Phone: [facility] 04-21-2023 12:31-0400 Body height 165.1 cm Shae Whittington 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 Work Phone: [facility] 04-21-2023 12:31-0400 Body mass index (BMI) [Ratio] 36.11 kg/m2 Shae Whittington 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 Work Phone: [facility] 04-21-2023 12:31-0400 Body temperature 97.81 [degF] Shae Whittington 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 Work Phone: [facility] 04-21-2023 12:31-0400 Body weight 98.43 kg Shae Whittington 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 Work Phone: [facility] 04-21-2023 12:31-0400 Diastolic blood pressure 68 mm[Hg] Shae Whittington 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 Work Phone: [facility] 04-21-2023 12:31-0400 Heart rate 67 /min Shae Whittington 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 Work Phone: [facility] 04-21-2023 12:31-0400 Respiratory rate 16 /min Shae Whittington 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 Work Phone: [facility] 04-21-2023 12:31-0400 SaO2% (BldA) [Mass fraction] 97 % Shae Whittington 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 Work Phone: [facility] 04-21-2023 12:31-0400 Systolic blood pressure 151 mm[Hg] Shae Whittington 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 Work Phone: [facility] 04-04-2023 15:06-0400 Body height 165.1 cm Andi Mayra [employer] [facility] 04-04-2023 15:06-0400 Body mass index (BMI) [Ratio] 35.28 kg/m2 Andi Amyra [employer] [facility] 04-04-2023 15:06-0400 Body weight 96.16 kg Andi Mayra [employer] [facility] 04-04-2023 15:06-0400 Diastolic blood pressure 77 mm[Hg] Andi Mayra [employer] [facility] 04-04-2023 15:06-0400 Heart rate 71 /min Andi Mayra [employer] [facility] Comment on above: regular 04-04-2023 15:06-0400 SaO2% (BldA) [Mass fraction] 95 % Andi Mayra [employer] [facility] Comment on above: clear 04-04-2023 15:06-0400 Systolic blood pressure 168 mm[Hg] Andi Mayra [employer] [facility] 02-14-2023 13:20-0400 Body height 165.1 cm Fernie A V.E.T.S.c.a.r.e. DO Work Phone: [facility] 02-14-2023 13:20-0400 Body mass index (BMI) [Ratio] 34.95 kg/m2 Fernie Brown DO Work Phone: [facility] 02-14-2023 13:20-0400 Body temperature 97 [degF] Fernie Brown DO Work Phone: [facility] 02-14-2023 13:20-0400 Body weight 95.25 kg Fernie Brown DO Work Phone: [facility] 02-14-2023 13:20-0400 Diastolic blood pressure 56 mm[Hg] Fernie Brown DO Work Phone: [facility] 02-14-2023 13:20-0400 Heart rate 71 /min Fernie Brown DO Work Phone: [facility] 02-14-2023 13:20-0400 Respiratory rate 14 /min Fernie Brown DO Work Phone: [facility] 02-14-2023 13:20-0400 SaO2% (BldA) [Mass fraction] 97 % Fernie [facility]aredes DO [facility] 02-14-2023 13:20-0400 Systolic blood pressure 120 mm[Hg] Fernie Paredes DO Work Phone: [facility] [employer] [facility] 12-16-2022 08:51-0500 Diastolic blood pressure 63 mm[Hg] Isreal Sigala MD Work Phone: [facility] [employer] [facility] 12-16-2022 08:51-0500 Heart rate 65 /min Isreal Sigala MD Work Phone: [facility] [employer] 12-16-2022 08:51-0500 Respiratory rate 16 /min Isreal Sigala MD Work Phone: [facility] 12-16-2022 08:51-0500 SaO2% (BldA) [Mass fraction] 98 % Isreal Sigala MD Work Phone: [facility] [employer] [facility] 12-16-2022 08:51-0500 Systolic blood pressure 140 mm[Hg] Isreal Sigala MD Work Phone: [facility] [employer] [facility] 12-16-2022 08:21-0500 Body temperature 97.5 [degF] Isreal Sigala MD Work Phone: [facility] [employer] [facility] 12-16-2022 06:46-0500 Body height 165.1 cm Isreal Sigala MD Work Phone: [facility] 12-16-2022 06:46-0500 Body mass index (BMI) [Ratio] 35.45 kg/m2 Isreal Sigala MD Work Phone: [facility] [employer] [facility] 12-16-2022 06:46-0500 Body weight 96.62 kg Isreal Sigala MD [facility] 11-22-2022 13:04-0500 Body height 165.1 cm Fernie Paredes DO Work Phone: [facility] [employer] [facility] 11-22-2022 13:04-0500 Body mass index (BMI) [Ratio] 35.46 kg/m2 Fernie Paredes DO Work Phone: [facility] 11-22-2022 13:04-0500 Body temperature 97.2 [degF] Fernie Paredes DO Work Phone: [facility] 11-22-2022 13:04-0500 Body weight 96.66 kg Fernie Paredes DO Work Phone: [facility] 11-22-2022 13:04-0500 Diastolic blood pressure 63 mm[Hg] Fernie Paredes DO Work Phone: [facility] 11-22-2022 13:04-0500 Heart rate 48 /min Fernie Paredes DO Work Phone: [facility] 11-22-2022 13:04-0500 Respiratory rate 16 /min Fernie Paredes DO Work Phone: [facility] 11-22-2022 13:04-0500 SaO2% (BldA) [Mass fraction] 98 % Fernie Paredes DO Work Phone: [facility] 11-22-2022 13:04-0500 Systolic blood pressure 139 mm[Hg] Fernie Paredes DO Work Phone: [facility] 11-17-2022 11:47-0500 Body height 165.1 cm Gonsalo Blackwood MD Work Phone: [facility] 11-17-2022 11:47-0500 Body mass index (BMI) [Ratio] 35.61 kg/m2 Gonsalo Blackwood MD Work Phone: [facility] 11-17-2022 11:47-0500 Body temperature 96.8 [degF] Gonsalo Blackwood MD Work Phone: [facility] 11-17-2022 11:47-0500 Body weight 97.07 kg Gonsalo Blackwood MD Work Phone: [facility] 11-17-2022 08:15-0500 Body height 165.1 cm Laya Barillas APRN.CNP Work Phone: [facility] 11-17-2022 08:15-0500 Body weight 96.57 kg Layamagdiel Barillas [employer]SEMBLER [employer] Work Phone: [facility] 11-17-2022 08:15-0500 Diastolic blood pressure 76 mm[Hg] Laya Barillas ASSEMBLER [employer] Work Phone: [facility] 11-17-2022 08:15-0500 Heart rate 86 /min Layamagdiel Barillas ASSEMBLER [employer] Work Phone: [facility] 11-17-2022 08:15-0500 Respiratory rate 18 /min Layamaritza Barillas ASSEMBLER [employer] Work Phone: [facility] 11-17-2022 08:15-0500 SaO2% (BldA) [Mass fraction] 96 % Laya Barillas [employer]SEM[employer]ER [employer] Work Phone: [facility] 11-17-2022 08:15-0500 Systolic blood pressure 142 mm[Hg] Laya Eran ASSEMBLER [employer] Work Phone: [facility] 10-30-2022 14:22-0500 Body height 165.1 cm Fernie [facility] 10-30-2022 14:22-0500 Body temperature 97.34 [degF] Fernie [facility] 10-30-2022 14:22-0500 Body weight 93.1 kg Fernie [facility] 10-30-2022 14:22-0500 Diastolic blood pressure 63 mm[Hg] Fernie [facility] 10-30-2022 14:22-0500 Heart rate 70 /min Fernie [facility] 10-30-2022 14:22-0500 Respiratory rate 16 /min Fernie [facility] 10-30-2022 14:22-0500 SaO2% (BldA) [Mass fraction] 95 % Fernie [facility] 10-30-2022 14:22-0500 Systolic blood pressure 163 mm[Hg] Fernie [facility] 09-29-2022 14:01-0500 Diastolic blood pressure 64 mm[Hg] Naty Bhakta MD Work Phone: [facility] 09-29-2022 14:01-0500 Systolic blood pressure 139 mm[Hg] Naty Bhakta MD Work Phone: [facility] 09-29-2022 13:12-0500 Body height 165.1 cm Naty Bhakta MD Work Phone: [facility] 09-29-2022 13:12-0500 Body mass index (BMI) [Ratio] 34.96 kg/m2 Naty Bhakta MD Work Phone: [facility] 09-29-2022 13:12-0500 Body temperature 98.1 [degF] Naty Bhakta MD Work Phone: [facility] 09-29-2022 13:12-0500 Body weight 95.3 kg Naty Bhakta MD Work Phone: [facility] 09-29-2022 13:12-0500 Heart rate 85 /min Naty Bhakta MD Work Phone: [facility] 09-29-2022 13:12-0500 Respiratory rate 17 /min Naty Bhakta MD Work Phone: [facility] 09-29-2022 13:12-0500 SaO2% (BldA) [Mass fraction] 97 % Naty Bhakta MD Work Phone: [facility] 09-29-2022 09:05-0500 Body height 165.1 cm Dariusz Rangel MD Work Phone: [facility] 09-29-2022 09:05-0500 Body mass index (BMI) [Ratio] 34.45 kg/m2 Dariusz Rangel MD Work Phone: [facility] [employer] 09-29-2022 09:05-0500 Body weight 93.89 kg Dariusz Rangel MD Work Phone: [facility] 09-29-2022 09:05-0500 Diastolic blood pressure 64 mm[Hg] Dariusz Rangel MD Work Phone: [facility] 09-29-2022 09:05-0500 Systolic blood pressure 122 mm[Hg] Dariusz Rangel MD Work Phone: [facility] 08-20-2022 13:12-0400 Body height 165.1 cm Fernie Paredes DO Work Phone: [facility] [employer] 08-20-2022 13:12-0400 Body mass index (BMI) [Ratio] 35.74 kg/m2 Fernie Paredes DO Work Phone: [facility] 08-20-2022 13:12-0400 Body temperature 97.7 [degF] Fernie Paredes DO Work Phone: [facility] [employer] [facility] 08-20-2022 13:12-0400 Body weight 97.43 kg Fernie Paredes DO Work Phone: [facility] 08-20-2022 13:12-0400 Diastolic blood pressure 69 mm[Hg] Fernie Paredes DO Work Phone: [facility] 08-20-2022 13:12-0400 Heart rate 56 /min Fernie Paredes DO Work Phone: [facility] [employer] 08-20-2022 13:12-0400 Respiratory rate 16 /min Fernie Paredes DO Work Phone: [facility] 08-20-2022 13:12-0400 SaO2% (BldA) [Mass fraction] 98 % Fernie Paredes DO Work Phone: [facility] [employer] 08-20-2022 13:12-0400 Systolic blood pressure 129 mm[Hg] Fernie Paredes DO Work Phone: [facility] [employer] 08-09-2022 11:44-0400 Diastolic blood pressure 88 mm[Hg] Radha Saleh 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 Work Phone: [facility] Comment on above: pt reports that she forgot to take her B P meds this AM 08-09-2022 11:44-0400 Systolic blood pressure 154 mm[Hg] 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 Phone: [facility] Comment on above: pt reports that she forgot to take her B P meds this AM 08-09-2022 11:11-0400 Body height 165.1 cm Radha Saleh 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 Work Phone: [facility] [employer] [facility] 08-09-2022 11:11-0400 Body mass index (BMI) [Ratio] 36.44 kg/m2 Radha Saleh 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 Work Phone: [facility] [employer] [facility] 08-09-2022 11:11-0400 Body weight 99.34 kg Radha Saleh 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 Work Phone: [facility] 07-08-2022 13:53-0400 Body height 165.1 cm Dariusz Rangel MD Work Phone: [facility] [employer] [facility] 07-08-2022 13:53-0400 Body mass index (BMI) [Ratio] 35.78 kg/m2 Dariusz Rangel MD Work Phone: [facility] [employer] [facility] 07-08-2022 13:53-0400 Body weight 97.52 kg Dariusz Rangel MD Work Phone: [facility] 07-08-2022 13:53-0400 Diastolic blood pressure 58 mm[Hg] Dariusz Rangel MD Work Phone: [employer] [facility] 07-08-2022 13:53-0400 Systolic blood pressure 124 mm[Hg] Dariusz [facility]angel MD [facility] 06-17-2022 11:55-0400 Diastolic blood pressure 64 mm[Hg] Isreal Sigala MD Work Phone: [facility] 06-17-2022 11:55-0400 Heart rate 83 /min Isreal Sigala MD Work Phone: [facility] 06-17-2022 11:55-0400 Respiratory rate 20 /min Isreal Sigala MD Work Phone: [facility] 06-17-2022 11:55-0400 SaO2% (BldA) [Mass fraction] 93 % Isreal Sigala MD Work Phone: [facility] 06-17-2022 11:55-0400 Systolic blood pressure 165 mm[Hg] Isreal Sigala MD Work Phone: [facility] 06-17-2022 11:15-0400 Body temperature 97.5 [degF] Isreal Sigala MD Work Phone: [facility] 06-17-2022 08:29-0400 Body height 165.1 cm Isreal Sigala MD Work Phone: [facility] 06-17-2022 08:29-0400 Body mass index (BMI) [Ratio] 35.62 kg/m2 Isreal Sigala MD Work Phone: [facility] 06-17-2022 08:29-0400 Body weight 97.1 kg Isreal Sigala MD Work Phone: [facility] 06-07-2022 13:03-0400 Body height 165.1 cm Dariusz Rangel MD Work Phone: [facility] 06-07-2022 13:03-0400 Body mass index (BMI) [Ratio] 35.61 kg/m2 Dariusz Rangel MD Work Phone: [facility] 06-07-2022 13:03-0400 Body weight 97.07 kg Dariusz Rangel MD Work Phone: [facility] 06-07-2022 13:03-0400 Diastolic blood pressure 74 mm[Hg] Dariusz Rangel MD Work Phone: [facility] 06-07-2022 13:03-0400 Systolic blood pressure 126 mm[Hg] Dariusz Rangel MD Work Phone: [facility] 06-01-2022 09:10-0400 Body height 165.1 cm Avg Mayra Gal [id number] Nurse [facility] 06-01-2022 09:10-0400 Body mass index (BMI) [Ratio] 35.94 kg/m2 Avg Mayra Gal [id number] Nurse [facility] 06-01-2022 09:10-0400 Body weight 97.98 kg Avg Mayra Gal [id number] Nurse [facility] 06-01-2022 09:10-0400 Diastolic blood pressure 74 mm[Hg] Avg Mayra Gal [id number] [facility] 06-01-2022 09:10-0400 Systolic blood pressure 124 mm[Hg] Avg Mayra Gal [id number] [facility] 05-26-2022 12:54-0400 Body height 167.6 cm Fernie Paredes DO Work Phone: [facility] 05-26-2022 12:54-0400 Body mass index (BMI) [Ratio] 34.01 kg/m2 Fernie Paredes DO [facility] Phone: [facility] 05-26-2022 12:54-0400 Body temperature 98.4 [degF] Fernie Paredes DO Work Phone: [facility] 05-26-2022 12:54-0400 Body weight 95.57 kg Fernie Paredes DO Work Phone: [facility] 05-26-2022 12:54-0400 Diastolic blood pressure 79 mm[Hg] Fernie Paredes DO Work Phone: [employer] [facility] 05-26-2022 12:54-0400 Heart rate 70 /min Fernie Paredes DO Work Phone: [facility] 05-26-2022 12:54-0400 Respiratory rate 16 /min Fernie Paredes DO Work Phone: [employer] [facility] 05-26-2022 12:54-0400 SaO2% (BldA) [Mass fraction] 96 % Fernie Paredes DO Work Phone: [facility] 05-26-2022 12:54-0400 Systolic blood pressure 144 mm[Hg] Fernie Paredes DO Work Phone: [facility] 04-16-2022 13:01-0400 Body height 167.6 cm Jonathan Cm HYDRA[employer]IC PRESS SERVICER Work Phone: [facility] 04-16-2022 13:01-0400 Body mass index (BMI) [Ratio] 33.25 kg/m2 Jonathan Cm HYDRA[employer]IC PRESS SERVICER Work Phone: [facility] 04-16-2022 [id number] Body weight 93.44 kg Jonathan Cm HYDRA[employer]IC PRESS SERVICER Work Phone: [facility] 04-16-2022 13:01-0400 Respiratory rate 18 /min Jonathan Cm HYDRA[employer]IC PRESS SERVICER Work Phone: [facility] 03-23-2022 13:16-0400 Body height 165.1 cm Fernie Paredes DO Work Phone: [facility] 03-23-2022 13:16-0400 Body mass index (BMI) [Ratio] 34.41 kg/m2 Fernie Paredes DO Work Phone: [facility] 03-23-2022 13:16-0400 Body temperature 97.11 [degF] Fernie Paredes DO Work Phone: [facility] 03-23-2022 13:16-0400 Body weight 93.8 kg Fernie Paredes DO Work Phone: [facility] 03-23-2022 13:16-0400 Diastolic blood pressure 78 mm[Hg] Fernie Paredes DO Work Phone: [facility] 03-23-2022 13:16-0400 Heart rate 65 /min Fernie Paredes DO Work Phone: [facility] 03-23-2022 13:16-0400 Respiratory rate 14 /min Fernie Paredes DO Work Phone: [facility] 03-23-2022 13:16-0400 SaO2% (BldA) [Mass fraction] 97 % Fernie Paredes DO Work Phone: [facility] [employer] [facility] 03-23-2022 13:16-0400 Systolic blood pressure 137 mm[Hg] Fernie Paredes DO Work Phone: [facility] 02-04-2022 08:49-0400 Body height 165.1 cm Garry Stephens MD Work Phone: [facility] 02-04-2022 08:49-0400 Body mass index (BMI) [Ratio] 34.45 kg/m2 Garry Stephens MD Work Phone: [facility] 02-04-2022 08:49-0400 Body weight 93.89 kg Garry Stephens MD Work Phone: [facility] 01-27-2022 13:25-0400 Body height 165.1 cm Washington Garner MD Work Phone: [facility] 01-27-2022 13:25-0400 Body mass index (BMI) [Ratio] 34.11 kg/m2 Washington Garner MD Work Phone: [facility] [employer] [facility] 01-27-2022 13:25-0400 Body weight 92.99 kg Washington Garner MD Work Phone: [facility] 01-27-2022 13:25-0400 Respiratory rate 18 /min Washington Garner MD Work Phone: [facility] 01-27-2022 13:25-0400 SaO2% (BldA) [Mass fraction] 98 % Washington Garner MD Work Phone: [facility] 02-13-2021 15:37-0400 Body height 165.1 cm Asad Sagastume DO Work Phone: [facility] 02-13-2021 15:37-0400 Body mass index (BMI) [Ratio] 34.45 kg/m2 Asad Sagastume DO Work Phone: [facility] 02-13-2021 15:37-0400 Body temperature 97.3 [degF] Asad Pavontings DO Work Phone: [facility] 02-13-2021 15:37-0400 Body weight 93.89 kg Asad Pavontings DO Work Phone: [facility] 02-13-2021 15:37-0400 Diastolic blood pressure 91 mm[Hg] Asad Tanika DO Work Phone: [facility] 02-13-2021 15:37-0400 Heart rate 82 /min Asad [place] DO Work Phone: [facility] 02-13-2021 15:37-0400 Respiratory rate 18 /min Asad Tanika DO Work Phone: [facility] 02-13-2021 15:37-0400 SaO2% (BldA) [Mass fraction] 97 % Asad [place] DO Work Phone: [facility] 02-13-2021 15:37-0400 Systolic blood pressure 170 mm[Hg] Asad Pritchetts DO Work Phone: [facility] 06-10-2017 09:43-0400 BMI (Body Mass Index) 37.94 kg/m2 [facility] Work Phone: 06-10-2017 09:43-0400 Body [...] BSA (Body Surface Area) 2.09 m2 [facility] Work Phone: 06-10-2017 09:43-0400 Height 165.1 cm Elaine Oquendo [facility] Internal Medicine Work Phone: 06-10-2017 09:43-0400 Pulse (Heart Rate) 68 /min Elaine Oquendo [facility] Internal Medicine Work Phone: Comment on above: Pattern: Regular 06-10-2017 09:43-0400 Pulse Oximetry 96 % Elaine Oquendo [facility] Internal Medicine Work Phone: Comment on above: Room air 06-10-2017 09:43-0400 Respiratory Rate 16 /min Elaine Oquendo [facility] Internal Medicine Work Phone: Comment on above: Pattern: Unlabored 06-10-2017 09:43-0400 Weight 103.42 kg Elaine Oquendo [facility] Internal Medicine Work Phone: 02-04-2017 09:17-0400 BMI (Body Mass Index) 37.94 kg/m2 Elaine Oquendo [facility] Internal Medicine Work Phone: 02-04-2017 09:17-0400 Body Temperature 97.7 [degF] [facility] Work Phone: 02-04-2017 09:17-0400 BP Diastolic 84 mm[Hg] Elaine Oquendo [facility] Internal Medicine Work Phone: Comment on above: Patient Position: Sitting; Cuff Location : Left Arm; Cuff Size: Standard 02-04-2017 09:17-0400 BP Systolic 132 mm[Hg] [facility] Work Phone: Comment on above: Patient Position: Sitting; Cuff Location : Left Arm; Cuff Size: Standard 02-04-2017 09:17-0400 BSA (Body Surface Area) 2.09 m2 Elaine Oquendo [facility] Internal Medicine Work Phone: 02-04-2017 09:17-0400 Height 165.1 cm Elaine Oquendo [facility] Internal Medicine Work Phone: 02-04-2017 09:17-0400 Pulse (Heart Rate) 69 /min [facility] Work Phone: Comment on above: Pattern: Regular 02-04-2017 09:17-0400 Pulse Oximetry 95 % Elaine Oquendo [facility] Internal Medicine Work Phone: Comment on above: Room air 02-04-2017 09:17-0400 Respiratory Rate 17 /min Elaine Oquendo [facility] Internal Medicine Work Phone: Comment on above: Pattern: Unlabored 02-04-2017 09:17-0400 Weight 103.42 kg Elaine Oquendo [facility] Internal Medicine Work Phone: 04-12-2016 08:36-0400 BMI (Body Mass Index) 38.27 kg/m2 Elaine Oquendo [facility] Internal Medicine Work Phone: 04-12-2016 08:36-0400 Body Temperature 97.2 [degF] Elaine Oquendo [facility] Internal Medicine Work Phone: Comment on above: Method: Temporal 04-12-2016 08:36-0400 BP Diastolic 74 mm[Hg] Elaine Oquendo [facility] Internal Medicine Work Phone: Comment on above: Patient Position: Sitting; Cuff Location : Left Arm; Cuff Size: Standard 04-12-2016 08:36-0400 BP Systolic 130 mm[Hg] Elaine Oquendo [facility] Internal Medicine Work Phone: Comment on above: Patient Position: Sitting; Cuff Location : Left Arm; Cuff Size: Standard 04-12-2016 08:36-0400 BSA (Body Surface Area) 2.1 m2 Elaine Oquendo [facility] Internal Medicine Work Phone: 04-12-2016 08:36-0400 Height 165.1 cm Elaine Oquendo [facility] Internal Medicine Work Phone: 04-12-2016 08:36-0400 Pulse (Heart Rate) 69 /min Elaine Oquendo [facility] Internal Medicine Work Phone: Comment on above: Pattern: Regular 04-12-2016 08:36-0400 Pulse Oximetry 95 % Elaine Oquendo [facility] Internal Medicine Work Phone: Comment on above: Room air 04-12-2016 08:36-0400 Respiratory Rate 16 /min Elaine Oquendo [facility] Internal Medicine Work Phone: Comment on above: Pattern: Unlabored 04-12-2016 08:36-0400 Weight 104.33 kg Elaine Oquendo [facility] Internal Medicine Work Phone: 12-04-2015 07:00-0500 BMI (Body Mass Index) 38.94 kg/m2 [facility] Internal Medicine Work Phone: 12-04-2015 07:00-0500 Body Temperature 97.6 [degF] Elaine Oquendo [facility] Internal Medicine Work Phone: Comment on above: Method: Temporal 12-04-2015 07:00-0500 BP Diastolic 84 mm[Hg] Elaine Oquendo [facility] Internal Medicine Work Phone: Comment on above: Patient Position: Sitting; Cuff Location : Left Arm; Cuff Size: Large 12-04-2015 07:00-0500 BP Systolic 124 mm[Hg] Elaine Oquendo [facility] Internal Medicine Work Phone: Comment on above: Patient Position: Sitting; Cuff Location : Left Arm; Cuff Size: Large 12-04-2015 07:00-0500 BSA (Body Surface Area) 2.11 m2 Elaine Oquendo [facility] Internal Medicine Work Phone: 12-04-2015 07:00-0500 Height 165.1 cm Elaine Oquendo [facility] Internal Medicine Work Phone: 12-04-2015 07:00-0500 Pulse (Heart Rate) 78 /min Elaine Oquendo [facility] Internal Medicine Work Phone: Comment on above: Pattern: Regular 12-04-2015 07:00-0500 Pulse Oximetry 98 % Elaine Oquendo [facility] Internal Medicine Work Phone: Comment on above: Room air 12-04-2015 07:00-0500 Respiratory Rate 20 /min Elaine Oquendo [facility] Internal Medicine Work Phone: Comment on above: Pattern: Unlabored 12-04-2015 07:00-0500 Weight 106.14 kg Elaine Oquendo [facility] Internal Medicine Work Phone: 07-23-2015 13:47-0400 BMI (Body Mass Index) 39 kg/m2 Elaine Altamirano radha Internal Medicine Work Phone: 07-23-2015 13:47-0400 Body Temperature 97.6 [degF] Elaine Oquendo [facility] Internal Medicine Work Phone: 07-23-2015 13:47-0400 BP Diastolic 86 mm[Hg] Elaine Oquendo [facility] Internal Medicine Work Phone: Comment on above: Patient Position: Sitting; Cuff Location : Left Arm; Cuff Size: Standard 07-23-2015 13:47-0400 BP Systolic 142 mm[Hg] Elaine Oquendo [facility] Internal Medicine Work Phone: Comment on above: Patient Position: Sitting; Cuff Location : Left Arm; Cuff Size: Standard 07-23-2015 13:47-0400 BSA (Body Surface Area) 2.12 m2 Elaine Oquendo [facility] Internal Medicine Work Phone: 07-23-2015 13:47-0400 Height 165.1 cm Elaine Oquendo [facility] Internal Medicine Work Phone: 07-23-2015 13:47-0400 Pulse (Heart Rate) 92 /min Elaine Oquendo [facility] Internal Medicine Work Phone: Comment on above: Pattern: Regular 07-23-2015 13:47-0400 Pulse Oximetry 97 % Elaine Oquendo [facility] Internal Medicine Work Phone: Comment on above: Room air 07-23-2015 13:47-0400 Respiratory Rate 18 /min Elaine Oquendo [facility] Internal Medicine Work Phone: Comment on above: Pattern: Unlabored 07-23-2015 13:47-0400 Weight 106.31 kg Elaine Oquendo [facility] Internal Medicine Work Phone: 02-14-2015 08:30-0400 BMI (Body Mass Index) 38.27 kg/m2 Elaine Altaimrano [facility] Internal Medicine Work Phone: 02-14-2015 08:30-0400 Body Temperature 100.8 [degF] Elaine Oquendo [facility] Internal Medicine Work Phone: Comment on above: Method: Oral 02-14-2015 08:30-0400 BP Diastolic 84 mm[Hg] Elaine Oquendo [facility] Internal Medicine Work Phone: Comment on above: Patient Position: Sitting; Cuff Location : Left Arm; Cuff Size: Large 02-14-2015 08:30-0400 BP Systolic 134 mm[Hg] Elaine Oquendo [facility] Internal Medicine Work Phone: Comment on above: Patient Position: Sitting; Cuff Location : Left Arm; Cuff Size: Large 02-14-2015 08:30-0400 BSA (Body Surface Area) 2.1 m2 Elaine Oquendo [facility] Internal Medicine Work Phone: 02-14-2015 08:30-0400 Height 165.1 cm Elaine Oquendo [facility] Internal Medicine Work Phone: 02-14-2015 08:30-0400 Pulse (Heart Rate) 82 /min Elaine Oquendo [facility] Internal Medicine Work Phone: Comment on above: Pattern: Regular 02-14-2015 08:30-0400 Pulse Oximetry 96 % Elaine Oquendo [facility] Internal Medicine Work Phone: Comment on above: Room air 02-14-2015 08:30-0400 Respiratory Rate 20 /min Elaine Oquendo [facility] Internal Medicine Work Phone: Comment on above: Pattern: Unlabored 02-14-2015 08:30-0400 Weight 104.33 kg Elaine Oquendo [facility] Internal Medicine Work Phone: 10-22-2014 10:19-0500 BMI (Body Mass Index) 36.94 kg/m2 Elaine Oquendo [facility] Internal Medicine Work Phone: 10-22-2014 10:19-0500 Body Temperature 97.5 [degF] Elaine Oquendo [facility] Internal Medicine Work Phone: Comment on above: Method: Temporal 10-22-2014 10:19-0500 BP Diastolic 74 mm[Hg] Elaine Oquendo [facility] Internal Medicine Work Phone: Comment on above: Patient Position: Sitting; Cuff Location : Left Arm; Cuff Size: Standard 10-22-2014 10:19-0500 BP Systolic 128 mm[Hg] Elaine Oquenod [facility] Internal Medicine Work Phone: Comment [...] 10:19-0500 Pulse Oximetry 98 % Elaine Oquendo [facility] Internal Medicine Work Phone: Comment on above: Room air 10-22-2014 10:19-0500 Respiratory Rate 16 /min Elaine Oquendo [facility] Internal Medicine Work Phone: Comment on above: Pattern: Unlabored 10-22-2014 10:19-0500 Weight 100.7 kg Elaine Oquendo [facility] Internal Medicine Work Phone: 10-22-2014 10:15-0500 BMI (Body Mass Index) 36.94 kg/m2 Elaine Pruettens [facility] Internal Medicine Work Phone: 10-22-2014 10:150500 BSA (Body Surface Area) 2.07 m2 Elaine Oquendo [facility] Internal Medicine Work Phone: 10-22-2014 10:150500 Height 165.1 cm Elaine Oquendo [facility] Internal Medicine Work Phone: 10-22-2014 10:15-0500 Weight 100.7 kg Elaine Oquendo [facility] Work Phone: 04-29-2014 [id number] BMI (Body Mass Index) 36.94 kg/m2 Elaine Oquendo [employer] [facility] Internal Medicine Work Phone: 04-29-2014 10:23-0400 Body Temperature 98 [degF] Elaine Oquendo [facility] Internal Medicine Work Phone: Comment on above: Method: Oral 04-29-2014 10:23-0400 BP Diastolic 90 mm[Hg] Elaine Oquendo [facility] Internal Medicine Work Phone: Comment on above: Patient Position: Sitting; Cuff Location : Left Arm; Cuff Size: Large 04-29-2014 10:23-0400 BP Systolic 144 mm[Hg] Elaine Oquendo [facility] Internal Medicine Work Phone: Comment on above: Patient Position: Sitting; Cuff Location : Left Arm; Cuff Size: Large 04-29-2014 10:23-0400 BSA (Body Surface Area) 2.07 m2 Elaine Oquendo [facility] Internal Medicine Work Phone: 04-29-2014 [id number] Height 165.1 cm Elaine Oquendo [facility] Internal Medicine Work Phone: 04-29-2014 10:23-0400 Pulse (Heart Rate) 68 /min Elaine Oquendo [facility] Internal Medicine Work Phone: Comment on above: Pattern: Regular 04-29-2014 10:23-0400 Pulse Oximetry 97 % Elaine Oquendo [facility] Internal Medicine Work Phone: Comment on above: Room air 04-29-2014 10:23-0400 Respiratory Rate 20 /min Elaine Oquendo [facility] Internal Medicine Work Phone: Comment on above: Pattern: Unlabored 04-29-2014 10:23-0400 Weight 100.7 kg Elaine Oquendo [facility] Internal Medicine Work Phone: 09-28-2013 13:33-0500 BMI (Body Mass Index) 34.78 kg/m2 Elaine Oquendo [facility] Internal Medicine Work Phone: 09-28-2013 13:33-0500 Body Temperature 98.2 [degF] Elaine Oquendo [facility] Internal Medicine Work Phone: Comment on above: Method: Oral 09-28-2013 13:33-0500 BP Diastolic 84 mm[Hg] Elaine Oquendo [facility] Internal Medicine Work Phone: Comment on above: Patient Position: Sitting; Cuff Location : Left Arm; Cuff Size: Standard 09-28-2013 13:33-0500 BP Systolic 126 mm[Hg] Elaine Oquendo [facility] Internal Medicine Work Phone: Comment on above: Patient Position: Sitting; Cuff Location : Left Arm; Cuff Size: Standard 09-28-2013 13:33-0500 BSA (Body Surface Area) 2.02 m2 Elaine Oquendo [facility] Internal Medicine Work Phone: 09-28-2013 13:33-0500 Height 165.1 cm Elaine Oquendo [facility] Internal Medicine Work Phone: 09-28-2013 13:33-0500 Pulse (Heart Rate) 72 /min Elaine Oquendo [facility] Internal Medicine Work Phone: Comment on above: Pattern: Regular 09-28-2013 13:33-0500 Respiratory Rate 20 /min Elaine Oquendo [facility] Internal Medicine Work Phone: Comment on above: Pattern: Unlabored 09-28-2013 13:33-0500 Weight 94.8 kg Elaine Oquendo [facility] Internal Medicine Work Phone: 09-03-2013 08:12-0500 BMI (Body Mass Index) 34.78 kg/m2 Elaine Oquendo [facility] Internal Medicine Work Phone: Comment on above: patient is nervous 09-03-2013 08:12-0500 Body Temperature 98 [degF] Elaine Oquendo [facility] Internal Medicine Work Phone: Comment on above: Method: Oral patient is nervous 09-03-2013 08:12-0500 BP Diastolic 90 mm[Hg] Elaine Oquendo [facility] Internal Medicine Work Phone: Comment on above: Patient Position: Sitting; Cuff Location : Left Arm; Cuff Size: Standard patient is nervous 09-03-2013 08:12-0500 BP Systolic 160 mm[Hg] Elaine Oquendo [facility] Internal Medicine Work Phone: Comment on above: Patient Position: Sitting; Cuff Location : Left Arm; Cuff Size: Standard patient is nervous 09-03-2013 08:12-0500 BSA (Body Surface Area) 2.02 m2 Elaine Oquendo [facility] Internal Medicine Work Phone: Comment on above: patient is nervous 09-03-2013 08:12-0500 Height 165.1 cm Elaine Oquendo [facility] Internal Medicine Work Phone: Comment on above: patient is nervous 09-03-2013 08:12-0500 Pulse (Heart Rate) 78 /min Elaine Oquendo [facility] Internal Medicine Work Phone: Comment on above: Pattern: Regular patient is nervous 09-03-2013 08:12-0500 Respiratory Rate 20 /min Elaine Oquendo [facility] Internal Medicine Work Phone: Comment on above: Pattern: Unlabored patient is nervous 09-03-2013 08:12-0500 Weight 94.8 kg Elaine Oquendo [facility] Internal Medicine Work Phone: Comment on above: patient is nervous 04-17-2013 10:59-0400 BMI (Body Mass Index) 32.98 kg/m2 Elaine Oquendo [facility] Internal Medicine Work Phone: 04-17-2013 10:59-0400 Body Temperature 98.4 [degF] Elaine Oquendo [facility] Internal Medicine Work Phone: Comment on above: Method: Oral 04-17-2013 10:59-0400 BP Diastolic 84 mm[Hg] Elaine Oquendo [facility] Internal Medicine Work Phone: Comment on above: Patient Position: Sitting; Cuff Location : Left Arm; Cuff Size: Standard 04-17-2013 10:59-0400 BP Systolic 146 mm[Hg] Elaine Oquendo [facility] Internal Medicine Work Phone: Comment on above: Patient Position: Sitting; Cuff Location : Left Arm; Cuff Size: Standard 04-17-2013 10:59-0400 BSA (Body Surface Area) 1.97 m2 Elaine Oquendo [facility] Internal Medicine Work Phone: 04-17-2013 10:59-0400 Height 165.1 cm Elaine Oquendo [facility] Internal Medicine Work Phone: 04-17-2013 10:59-0400 Pulse (Heart Rate) 66 /min Elaine Oquendo [facility] Internal Medicine Work Phone: Comment on above: Pattern: Regular 04-17-2013 10:59-0400 Pulse Oxim[facility] 96 % [facility]: Comment on above: Room air 04-17-2013 10:59-0400 Respiratory Rate 16 /min Elaine Oquendo [facility] Internal Medicine Work Phone: 04-17-2013 10:59-0400 Weight 89.9 kg Elaine Oquendo [facility] Internal Medicine Work Phone: 03-01-2013 12:36-0400 BMI (Body Mass Index) 32.04 kg/m2 Elaine Oquendo [facility] Internal Medicine Work Phone: 03-01-2013 12:36-0400 Body Temperature 96.8 [degF] Elaine Oquendo [facility] Internal Medicine Work Phone: Comment on above: Method: Temporal 03-01-2013 12:36-0400 BP Diastolic 84 mm[Hg] Elaine Oquendo [facility] Internal Medicine Work Phone: Comment on above: Patient Position: Sitting; Cuff Location : Left Arm; Cuff Size: Standard 03-01-2013 12:36-0400 BP Systolic 122 mm[Hg] Elaine Oquendo [facility] Internal Medicine Work Phone: Comment on above: Patient Position: Sitting; Cuff Location : Left Arm; Cuff Size: Standard 03-01-2013 12:36-0400 BSA (Body Surface Area) 1.95 m2 Elaine Oquendo [facility] Internal Medicine Work Phone: 03-01-2013 12:36-0400 Height 165.1 cm Elaine Oquendo [facility] Internal Medicine Work Phone: 03-01-2013 12:36-0400 Pulse (Heart Rate) 65 /min Elaine Oquendo [facility] Internal Medicine Work Phone: Comment on above: Pattern: Regular 03-01-2013 12:36-0400 Pulse Oximetry 98 % Elaine Oquendo [facility] Internal Medicine Work Phone: Comment on above: Room air 03-01-2013 12:36-0400 Respiratory Rate 16 /min Elaine Oquendo [facility] Internal Medicine Work Phone: Comment on above: Pattern: Unlabored 03-01-2013 12:36-0400 Weight 87.35 kg Elaine Haque Internal Medicine Work Phone: 02-23-2013 07:22-0400 BMI (Body Mass Index) 31.88 kg/m2 Elaine Altamirano radha Internal Medicine Work Phone: 02-23-2013 07:22-0400 Body Temperature 97.6 [degF] Elaine Oquendo [facility] Internal Medicine Work Phone: Comment on above: Method: Temporal 02-23-2013 07:22-0400 BP Diastolic 74 mm[Hg] Elaine Oquendo [facility] Internal Medicine Work Phone: Comment on above: Patient Position: Sitting; Cuff Location : Left Arm; Cuff Size: Standard 02-23-2013 07:22-0400 BP Systolic 126 mm[Hg] Elaine Oquendo [facility] Internal Medicine Work Phone: Comment on above: Patient Position: Sitting; Cuff Location : Left Arm; Cuff Size: Standard 02-23-2013 07:22-0400 BSA (Body Surface Area) 1.94 m2 Elaine Haque Internal Medicine Work Phone: 02-23-2013 07:22-0400 Height 165.1 cm Elaine Oquendo [facility] Internal Medicine Work Phone: 02-23-2013 07:22-0400 Pulse (Heart Rate) 92 /min Elaine Oquendo [facility] Internal Medicine Work Phone: Comment on above: Pattern: Regular 02-23-2013 07:22-0400 Pulse Oximetry 94 % Elaine Oquendo [facility] Internal Medicine Work Phone: Comment on above: Room air 02-23-2013 07:22-0400 Respiratory Rate 16 /min Elaine Oquendo [facility] Internal Medicine Work Phone: Comment on above: Pattern: Unlabored 02-23-2013 07:22-0400 Weight 86.89 kg Elaine Haque Internal Medicine Work Phone: 11-27-2012 08:49-0500 BMI (Body Mass Index) 31.54 kg/m2 Elaine Altamirano radha Internal Medicine Work Phone: 11-27-2012 08:49-0500 Body Temperature 98.8 [degF] Elaine Oquendo [facility] Internal Medicine Work Phone: Comment on above: Method: Oral 11-27-2012 08:49-0500 BP Diastolic 90 mm[Hg] Elaine Oquendo [facility] Internal Medicine Work Phone: Comment on above: Patient Position: Sitting; Cuff Location : Left Arm; Cuff Size: Standard 11-27-2012 08:49-0500 BP Systolic 166 mm[Hg] Elaine Oquendo [facility] Internal Medicine Work Phone: Comment on above: Patient Position: Sitting; Cuff Location : Left Arm; Cuff Size: Standard 11-27-2012 08:49-0500 BSA (Body Surface Area) 1.93 m2 Elaine Oquendo [facility] Internal Medicine Work Phone: 11-27-2012 08:49-0500 Height 165.1 cm Elaine Oquendo [facility] Internal Medicine Work Phone: 11-27-2012 08:49-0500 Pulse (Heart Rate) 92 /min Elaine Oquendo [facility] Internal Medicine Work Phone: Comment on above: Pattern: Regular 11-27-2012 08:49-0500 Pulse Oximetry 97 % Elaine Oquendo [facility] Internal Medicine Work Phone: Comment on above: Room air 11-27-2012 08:49-0500 Respiratory Rate 22 /min Elaine Oquendo [facility] Internal Medicine Work Phone: 11-27-2012 08:49-0500 Weight 85.99 kg Elaine Oquendo [facility] Internal Medicine Work Phone: 10-12-2012 10:06-0500 BMI (Body Mass Index) 32.12 kg/m2 Elaine Oquendo [facility] Internal Medicine Work Phone: 10-12-2012 10:06-0500 Body Temperature 97.9 [degF] Elaine Oquendo [facility] Internal Medicine Work Phone: Comment on above: Method: Oral 10-12-2012 10:06-0500 BP Diastolic 84 mm[Hg] Elaine Oquendo [facility] Internal Medicine Work Phone: Comment on above: Patient Position: Sitting; Cuff Location : Left Arm; Cuff Size: Standard 10-12-2012 10:06-0500 BP Systolic 124 mm[Hg] Elaine Oquendo [facility] Internal Medicine Work Phone: Comment on above: Patient Position: Sitting; Cuff Location : Left Arm; Cuff Size: Standard 10-12-2012 10:06-0500 BSA (Body Surface Area) 1.95 m2 Elaine Oquendo [facility] Internal Medicine Work Phone: 10-12-2012 10:06-0500 Height 165.1 cm Elaine Oquendo [facility] Internal Medicine Work Phone: 10-12-2012 10:06-0500 Pulse (Heart Rate) 74 /[facility] Work [facility]: Comment on above: Pattern: Regular 10-12-2012 10:06-0500 Respiratory Rate 18 /min Elaine Oquendo [facility] Internal Medicine Work Phone: Comment on above: Pattern: Unlabored 10-12-2012 10:06-0500 Weight 87.54 kg Elaine Oquendo [facility] Internal Medicine Work Phone: 09-08-2012 07:41-0500 BMI (Body Mass Index) 32.28 kg/m2 Elaine Oquendo [facility] Internal Medicine Work Phone: 09-08-2012 07:41-0500 Body Temperature 97.8 [degF] [facility] Work [facility]: Comment on above: Method: Oral 09-08-2012 07:41-0500 BP Diastolic 76 mm[Hg] Elaine Oquendo [facility] Internal Medicine Work Phone: Comment on above: Patient Position: Sitting; Cuff Location : Left Arm; Cuff Size: Standard 09-08-2012 07:41-0500 BP Systolic 142 mm[Hg] [facility] Work [facility]: Comment on above: Patient Position: Sitting; Cuff Location : Left Arm; Cuff Size: Standard 09-08-2012 07:41-0500 BSA (Body Surface Area) 1.95 m2 [facility] Work Phone: 09-08-2012 07:41-0500 Height 165.1 cm Elaine Oquendo [facility] Internal Medicine Work Phone: 09-08-2012 07:41-0500 Pulse (Heart Rate) 70 /min Elaine Oquendo [facility] Internal Medicine Work Phone: Comment on above: Pattern: Regular 09-08-2012 07:41-0500 Respiratory Rate 18 /min Elaine Oquendo [facility] Internal Medicine Work Phone: Comment on above: Pattern: Unlabored 09-08-2012 07:41-0500 Weight 88 kg Elaine Oquendo [facility] Internal Medicine Work Phone: 12-03-2011 06:55-0500 BMI (Body Mass Index) 28.29 kg/m2 Elaine Oquendo [facility] Internal Medicine Work Phone: 12-03-2011 06:55-0500 Body Temperature 98.3 [degF] [facility] Work [facility]: Comment on above: Method: Oral 12-03-2011 06:55-0500 BP Diastolic 72 mm[Hg] [facility] Work [facility]: Comment on above: Patient Position: Sitting; Cuff Location : Left Arm; Cuff Size: Large 12-03-2011 06:55-0500 BP Systolic 160 mm[Hg] [facility] Work [facility]: Comment on above: Patient Position: Sitting; Cuff Location : Left Arm; Cuff Size: Large 12-03-2011 06:55-0500 BSA (Body Surface Area) 1.85 m2 Elaine Oquendo [facility] Internal Medicine Work Phone: 12-03-2011 06:55-0500 Height 165.1 cm Elaine Oquendo [facility] Internal Medicine Work Phone: 12-03-2011 06:55-0500 Pulse (Heart Rate) 100 /min Elaine Oquendo [facility] Internal Medicine Work Phone: Comment on above: Pattern: Regular 12-03-2011 06:55-0500 Respiratory Rate 16 /min [facility] Work [facility]: Comment on above: Pattern: Unlabored 12-03-2011 06:55-0500 Weight 77.11 kg Elaine Oquendo [facility] Internal Medicine Work Phone: 11-19-2011 07:18-0500 BMI (Body Mass Index) 28.95 kg/m2 Elaine Altamirano [facility] Internal Medicine Work Phone: 11-19-2011 07:18-0500 Body Temperature 97.6 [degF] Elaine Oqunedo [facility] Internal Medicine Work Phone: Comment on above: Method: Oral 11-19-2011 07:18-0500 BP Diastolic 80 mm[Hg] Elaine Oquendo [facility] Internal Medicine Work Phone: Comment on above: Patient Position: Sitting; Cuff Location : Left Arm; Cuff Size: Standard 11-19-2011 07:18-0500 BP Systolic 124 mm[Hg] Elaine Oquendo [facility] Internal Medicine Work Phone: Comment on above: Patient Position: Sitting; Cuff Location : Left Arm; Cuff Size: Standard 11-19-2011 07:18-0500 BSA (Body Surface Area) 1.86 m2 Elaine Oquendo [facility] Internal Medicine Work Phone: 11-19-2011 07:18-0500 Height 165.1 cm Elaine Oquendo [facility] Internal Medicine Work Phone: 11-19-2011 07:18-0500 Pulse (Heart Rate) 68 /min Elaine Oquendo [facility] Internal Medicine Work Phone: Comment on above: Pattern: Regular 11-19-2011 07:18-0500 Respiratory Rate 20 /min Elaine Oquendo [facility] Internal Medicine Work Phone: Comment on above: Pattern: Unlabored 11-19-2011 07:18-0500 Weight 78.93 kg Elaine Oquendo [facility] Internal Medicine Work Phone: 10-21-2011 09:57-0500 BMI (Body Mass Index) 28.95 kg/m2 Elaine Altamirano [facility] Internal Medicine Work Phone: 10-21-2011 09:57-0500 Body Temperature 97.9 [degF] Elaine Oquendo [facility] Internal Medicine Work Phone: Comment on above: Method: Oral 10-21-2011 09:57-0500 BP Diastolic 80 mm[Hg] Elaine Oquenod [facility] Internal Medicine Work Phone: Comment on above: Patient Position: Sitting; Cuff Location : Left Arm; Cuff Size: Standard 10-21-2011 09:57-0500 BP Systolic 122 mm[Hg] Elaine Oquendo [facility] Internal Medicine Work Phone: Comment on above: Patient Position: Sitting; Cuff Location : Left Arm; Cuff Size: Standard 10-21-2011 09:57-0500 BSA (Body Surface Area) 1.86 m2 Elaine Oquendo [facility] Internal Medicine Work Phone: 10-21-2011 09:57-0500 Height 165.1 cm Elaine Oquendo [facility] Internal Medicine Work Phone: 10-21-2011 09:57-0500 Pulse (Heart Rate) 74 /min Elaine Oquendo [facility] Internal Medicine Work Phone: Comment on above: Pattern: Regular 10-21-2011 09:57-0500 Respiratory Rate 18 /min Elaine Oquendo [facility] Internal Medicine Work Phone: Comment on above: Pattern: Unlabored 10-21-2011 09:57-0500 Weight 78.93 kg Elaine Oquendo [facility] Internal Medicine Work Phone: 10-19-2011 09:14-0500 BMI (Body Mass Index) 28.95 kg/m2 Elaine Oquendo [facility] Internal Medicine Work Phone: 10-19-2011 09:14-0500 Body Temperature 98.2 [degF] Elaine Oquendo [facility] Internal Medicine Work Phone: Comment on above: Method: Oral 10-19-2011 09:14-0500 BP Diastolic 78 mm[Hg] Elaine Oquendo [facility] Internal Medicine Work Phone: Comment on above: Patient Position: Sitting; Cuff Location : Left Arm; Cuff Size: Standard 10-19-2011 09:14-0500 BP Systolic 122 mm[Hg] Elaine Oquendo [facility] Internal Medicine Work Phone: Comment on above: Patient Position: Sitting; Cuff Location : Left Arm; Cuff Size: Standard 10-19-2011 09:14-0500 BSA (Body Surface Area) 1.86 m2 Elaine Oquendo [facility] Internal Medicine Work Phone: 10-19-2011 09:14-0500 Height 165.1 cm Elaine Oquendo [facility] Internal Medicine Work Phone: 10-19-2011 09:14-0500 Pulse (Heart Rate) 76 /min Elaine Oquendo [facility] Internal Medicine Work Phone: Comment on above: Pattern: Regular 10-19-2011 09:14-0500 Respiratory Rate 18 /min Elaine Oquendo [facility] Internal Medicine Work Phone: Comment on above: Pattern: Unlabored 10-19-2011 09:14-0500 Weight 78.93 kg Elaine Oquendo [facility] Internal Medicine Work Phone: 09-03-2010 07:15-0500 BP Diastolic 60 mm[Hg] Elaine Oquendo [facility] Internal Medicine Work Phone: Comment on above: Patient Position: Sitting; Cuff Location : Left Arm; Cuff Size: Large 09-03-2010 07:15-0500 BP Systolic 122 mm[Hg] Elaine Oquendo [facility] Internal Medicine Work Phone: Comment on above: Patient Position: Sitting; Cuff Location : Left Arm; Cuff Size: Large 09-03-2010 07:15-0500 Pulse (Heart Rate) 68 /min Elaine Oquendo [facility] Internal Medicine Work Phone: Comment on above: Pattern: Regular 09-03-2010 07:15-0500 Respiratory Rate 20 /min Elaine Oquendo [facility] Internal Medicine Work Phone: Comment on above: Pattern: Unlabored 09-03-2010 07:15-0500 Weight 83.01 kg Elaine Oquendo [facility] Internal Medicine Work Phone: 06-18-2010 08:45-0400 Body Temperature 97.9 [degF] Elaine Oquendo [facility] Internal Medicine Work Phone: Comment on above: Method: Oral 06-18-2010 08:45-0400 BP Diastolic 78 mm[Hg] Elaine Oquendo [facility] Internal Medicine Work Phone: Comment on above: Patient Position: Sitting; Cuff Location : Left Arm; Cuff Size: Standard 06-18-2010 08:45-0400 BP Systolic 118 mm[Hg] Elaine Oquendo [facility] Internal Medicine Work Phone: Comment on above: Patient Position: Sitting; Cuff Location : Left Arm; Cuff Size: Standard 06-18-2010 08:45-0400 Pulse (Heart Rate) 74 /min Elaine Oquendo [facility] Internal Medicine Work Phone: Comment on above: Pattern: Regular 06-18-2010 08:45-0400 Respiratory Rate 18 /min Elaine Oquendo [facility] Internal Medicine Work Phone: Comment on above: Pattern: Unlabored 06-18-2010 08:45-0400 Weight 83.01 kg Elaine Oquendo [facility] Internal Medicine Work Phone: 05-25-2010 14:51-0400 Body Temperature 97.9 [degF] Elaine Oquendo [facility] Internal Medicine Work Phone: Comment on above: Method: Oral 05-25-2010 14:51-0400 BP Diastolic 78 mm[Hg] Elaine Oquendo [facility] Internal Medicine Work Phone: Comment on above: Patient Position: Sitting; Cuff Location : Left Arm; Cuff Size: Standard 05-25-2010 14:51-0400 BP Systolic 120 mm[Hg] Elaine Oquendo [facility] Internal Medicine Work Phone: Comment on above: Patient Position: Sitting; Cuff Location : Left Arm; Cuff Size: Standard 05-25-2010 14:51-0400 Pulse (Heart Rate) 78 /min Elaine Oquendo [facility] Internal Medicine Work Phone: Comment on above: Pattern: Regular 05-25-2010 14:51-0400 Respiratory Rate 18 /min Elaine Oquendo [facility] Internal Medicine Work Phone: Comment on above: Pattern: Unlabored 05-25-2010 14:51-0400 [facility] 82.1 [facility] Work Phone: 08-22-2008 11:43-0400 Body Temperature 97.7 [degF] Elaine Oquendo [facility] Internal Medicine Work Phone: Comment on above: Method: Oral 08-22-2008 11:43-0400 BP Diastolic 84 mm[Hg] Elaine Oquendo [facility] Internal Medicine Work Phone: Comment on above: Patient Position: Sitting; Cuff Location : Left Arm; Cuff Size: Large 08-22-2008 11:43-0400 BP Systolic 124 mm[Hg] Elaine Oquendo [facility] Internal Medicine Work Phone: Comment on above: Patient Position: Sitting; Cuff Location : Left Arm; Cuff Size: Large 08-22-2008 11:43-0400 Head Circumference 0 cm [facility] Work Phone: 08-22-2008 11:43-0400 Height 0 cm [facility] Internal Medicine Work Phone: 08-22-2008 11:43-0400 Pulse (Heart Rate) 68 /min Elaine Oquendo [facility] Internal Medicine Work Phone: Comment on above: Pattern: Regular 08-22-2008 11:43-0400 Respiratory Rate 16 /min Elaine Oquendo [facility] Internal Medicine Work Phone: Comment on above: Pattern: Unlabored 08-22-2008 11:43-0400 Weight 93.9 kg [facility] Work Phone: 03-01-2008 07:48-0400 Body Temperature 98.2 [degF] Elaine Castellanosaram [facility] Internal Medicine Work Phone: Comment on above: Method: Oral 03-01-2008 07:48-0400 BP Diastolic 80 mm[Hg] Elaine [facility] Internal Medicine Work Phone: Comment on above: Patient Position: Sitting; Cuff Location : Left Arm; Cuff Size: Standard 03-01-2008 07:48-0400 BP Systolic 126 mm[Hg] [facility] Work Phone: Comment on above: Patient Position: Sitting; Cuff Location : Left Arm; Cuff Size: Standard 03-01-2008 07:48-0400 Head Circumference 0 cm [facility] Work Phone: 03-01-2008 07:48-0400 Height 0 cm Elaine [facility] Internal Medicine Work Phone: 03-01-2008 07:48-0400 Pulse (Heart Rate) 70 /min [facility] Internal Medicine Work Phone: Comment on above: Pattern: Regular 03-01-2008 07:48-0400 Respiratory Rate 18 /min [facility] Work Phone: Comment on above: Pattern: Unlabored 03-01-2008 07:48-0400 Weight 95.26 kg Elaine [facility] Internal Medicine Work Phone: 01-26-2008 08:26-0400 BP Diastolic 88 mm[Hg] [facility] Internal Medicine Work Phone: Comment on above: Patient Position: Sitting; Cuff Location : Left Arm; Cuff Size: Standard 01-26-2008 08:26-0400 BP Systolic 160 mm[Hg] [facility] Work Phone: [...] 10:04-0500 BP Diastolic 90 mm[Hg] Elaine Oquendo [facility] Internal Medicine Work Phone: Comment on above: Patient Position: Sitting; Cuff Location : Left Arm; Cuff Size: Standard 12-26-2007 10:04-0500 BP Systolic 130 mm[Hg] Elaine Oquendo [facility] Internal Medicine Work Phone: Comment on above: Patient Position: Sitting; Cuff Location : Left Arm; Cuff Size: Standard 12-26-2007 10:04-0500 Head Circumference 0 cm Elaine Oquendo [facility] Internal Medicine Work Phone: 12-26-2007 10:04-0500 Height 0 cm Elaine Oquendo [facility] Internal Medicine Work Phone: 12-26-2007 10:04-0500 Pulse (Heart Rate) 76 /min Elaine Oquendo [facility] Internal Medicine Work Phone: Comment on above: Pattern: Regular 12-26-2007 10:04-0500 Respiratory Rate 18 /min Elaine Oquendo [facility] Internal Medicine Work Phone: Comment on above: Pattern: Unlabored 12-26-2007 10:04-0500 Weight 96.62 kg Elaine Oquendo [facility] Internal Medicine Work Phone: 10-11-2007 08:10-0500 Body Temperature 97.3 [degF] Elaine Oquendo [facility] Internal Medicine Work Phone: Comment on above: Method: Oral 10-11-2007 08:10-0500 BP Diastolic 72 mm[Hg] Elaine Oquendo [facility] Internal Medicine Work Phone: Comment on above: Patient Position: Sitting; Cuff Location : Left Arm; Cuff Size: Standard 10-11-2007 08:10-0500 BP Systolic 145 mm[Hg] Elaine Oquendo [facility] Internal Medicine Work Phone: Comment on above: Patient Position: Sitting; Cuff Location : Left Arm; Cuff Size: Standard 10-11-2007 08:10-0500 Head Circumference 0 cm [facility] Work Phone: 10-11-2007 08:10-0500 Height 0 cm Elaine Oquendo [facility] Internal Medicine Work Phone: 10-11-2007 08:10-0500 Pulse (Heart Rate) 84 /min Elaine [facility]endo [facility] Work Phone: Comment on above: Pattern: Regular 10-11-2007 08:10-0500 Respiratory Rate 18 /min Elaine Oquendo [facility] Internal Medicine Work Phone: Comment on above: Pattern: Unlabored 10-11-2007 08:10-0500 Weight 0 kg Elaine Oquendo [facility] Internal Medicine Work Phone: 05-10-2007 17:30-0400 Body Temperature 98.8 [degF] Elaine Oquendo [facility] Internal Medicine Work Phone: Comment on above: Method: Oral 05-10-2007 17:30-0400 Head Circumference 0 cm Elaine Oquendo [facility] Internal Medicine Work Phone: 05-10-2007 17:30-0400 Height 0 cm Elaine Oquendo [facility] Internal Medicine Work Phone: 05-10-2007 17:30-0400 Pulse (Heart Rate) 74 /min Elaine Oquendo [facility] Work Phone: Comment on above: Pattern: Regular 05-10-2007 17:30-0400 Respiratory Rate 16 /min Elaine Oquendo [facility] Internal Medicine Work Phone: Comment on above: Pattern: Unlabored 05-10-2007 17:30-0400 Weight 0 kg Elaine Oquendo [facility] Internal Medicine Work Phone: 03-08-2007 10:56-0400 Body Temperature 98.8 [degF] Elaine Oquendo [facility] Internal Medicine Work Phone: Comment on above: Method: Oral 03-08-2007 10:56-0400 BP Diastolic 76 mm[Hg] Elaine Oquendo [facility] Internal Medicine Work Phone: Comment on above: Patient Position: Sitting; Cuff Location : Left Arm; Cuff Size: Standard 03-08-2007 10:56-0400 BP Systolic 128 mm[Hg] Elaine Oquendo [facility] Internal Medicine Work Phone: Comment on above: Patient Position: Sitting; Cuff Location : Left Arm; Cuff Size: Standard 03-08-2007 10:56-0400 Head Circumference 0 cm Elaine Oquendo [facility] Internal Medicine Work Phone: 03-08-2007 10:56-0400 Height 0 cm Elaine Oquendo [facility] Internal Medicine Work Phone: 03-08-2007 10:56-0400 Pulse (Heart Rate) 76 /min Elaine Oquendo [facility] Internal Medicine Work Phone: Comment on above: Pattern: Regular 03-08-2007 10:56-0400 Respiratory Rate 19 /min Elaine Oquendo [facility] Internal Medicine Work Phone: Comment on above: Pattern: Unlabored 03-08-2007 10:56-0400 Weight 97.52 kg Elaine Oquendo [facility] Internal Medicine Work Phone: 02-08-2007 16:14-0400 Body Temperature 97.7 [degF] Elaine Oquendo [facility] Internal Medicine Work Phone: Comment on above: Method: Oral 02-08-2007 16:14-0400 BP Diastolic 80 mm[Hg] Elaine Oquendo [facility] Internal Medicine Work Phone: Comment on above: Patient Position: Sitting; Cuff Location : Left Arm; Cuff Size: Standard 02-08-2007 16:14-0400 BP Systolic 126 mm[Hg] Elaine Oquendo [facility] Internal Medicine Work Phone: Comment on above: Patient Position: Sitting; Cuff Location : Left Arm; Cuff Size: Standard 02-08-2007 16:14-0400 Head Circumference 0 cm Elaine Oquendo [facility] Internal Medicine Work Phone: 02-08-2007 16:14-0400 Height 0 cm Elaine Oquendo [facility] Internal Medicine Work Phone: 02-08-2007 16:14-0400 Pulse (Heart Rate) 76 /min Elaine Oquendo [facility] Internal Medicine Work Phone: Comment on above: Pattern: Regular 02-08-2007 16:14-0400 Respiratory Rate 20 /min Elaine Oquendo [facility] Internal Medicine Work Phone: Comment on above: Pattern: Unlabored 02-08-2007 16:14-0400 Weight 0 kg Elaine Oquendo [facility] Internal Medicine Work Phone: 12-29-2006 08:44-0500 Body Temperature 97.7 [degF] Elaine Oquendo [facility] Internal Medicine Work Phone: Comment on above: Method: Oral 12-29-2006 08:44-0500 BP Diastolic 84 mm[Hg] Elaine Oquendo [facility] Internal Medicine Work Phone: Comment on above: Patient Position: Sitting; Cuff Location : Left Arm; Cuff Size: Standard 12-29-2006 08:44-0500 BP Systolic 130 mm[Hg] Elaine Oquendo [facility] Internal Medicine Work Phone: Comment on above: Patient Position: Sitting; Cuff Location : Left Arm; Cuff Size: Standard 12-29-2006 08:44-0500 Head Circumference 0 cm Elaine Oquendo [facility] Internal Medicine Work Phone: 12-29-2006 08:44-0500 Height 0 cm Elaine Oquendo [facility] Internal Medicine Work Phone: 12-29-2006 08:44-0500 Pulse (Heart Rate) 78 /min Elaine Oquendo [facility] Internal Medicine Work Phone: Comment on above: Pattern: Regular 12-29-2006 08:44-0500 Respiratory Rate 22 /min Elaine Oquendo [facility] Internal Medicine Work Phone: Comment on above: Pattern: Unlabored 12-29-2006 08:44-0500 Weight 97.52 kg Elaine Oquendo [facility] Internal Medicine Work Phone: 11-30-2006 09:10-0500 BMI (Body Mass Index) 36.44 kg/m2 Elaine Oquendo [facility] Internal Medicine Work Phone: 11-30-2006 09:10-0500 Body Temperature 97.6 [degF] Elaine Oquendo [facility] Internal Medicine Work Phone: Comment on above: Method: Oral 11-30-2006 09:10-0500 BP Diastolic 82 mm[Hg] Elaine Oquendo [facility] Internal Medicine Work Phone: Comment on above: Patient Position: Sitting; Cuff Location : Left Arm; Cuff Size: Standard 11-30-2006 09:10-0500 BP Systolic 126 mm[Hg] Elaine Oquendo [facility] Internal Medicine Work Phone: Comment on above: Patient Position: Sitting; Cuff Location : Left Arm; Cuff Size: Standard 11-30-2006 09:10-0500 BSA (Body Surface Area) 2.06 m2 Elaine Oquendo [facility] Internal Medicine Work Phone: 11-30-2006 09:10-0500 Head Circumference 0 cm Elaine Castellanosaram [facility] Internal Medicine Work Phone: 11-30-2006 09:10-0500 Height 165.1 cm Elaine Oquendo [facility] Internal Medicine Work Phone: 11-30-2006 09:10-0500 Pulse (Heart Rate) 70 /min Elaine Oquendo [facility] Internal Medicine Work Phone: Comment on above: Pattern: Regular 11-30-2006 09:10-0500 Respiratory Rate 20 /min Elaine Oquendo [facility] Internal Medicine Work Phone: Comment on above: Pattern: Unlabored 11-30-2006 09:10-0500 Weight 99.34 kg Elaine Oquendo [facility] Internal Medicine Work Phone: Encounters Encounter Date Encounter Type Care Provider Facility Start: 10-11-2025 ambulatory FERNIE M [facility] Start: 08-09-2025 ambulatory FERNIE M [facility] Start: 08-09-2025 End: 08-09-2025 Office outpatient visit 25 minutes Katina William APRN-HYDRAULIC PRESS SERVICER Work Phone: [facility] Comment on above: Cluneal neuropathy ( Primary Dx); Myofascial pain; Lumbar spondylosis; Spinal stenosis, lumbar region, with neurogenic claudication Start: 07-09-2025 ambulatory FERNIE M [facility] Start: 07-09-2025 End: 07-09-2025 Office outpatient visit 25 minutes Deepali Joe HYDRAULIC PRESS SERVICER Work Phone: [facility] Comment on above: Strain of thoracic p araspinal muscles excluding T1 and T2 levels, initial encounter (Primary Dx); Spinal stenosis, lumbar region, with neurogenic claudication; Cluneal neuropathy; Other low back pain; Myofascial pain; Right-sided thoracic back pain, unspecified chronicity Start: 06-27-2025 End: 06-27-2025 Office outpatient visit 15 minutes Dawn Uriarte DPM Work Phone: [facility] Comment on above: Skin ulcer of fourth toe of left foot, limited to breakdown of skin (Primary Dx); Plantar fasciitis; Pain of left foot Start: 06-27-2025 [facility] Start: 06-20-2025 End: 06-20-2025 Office outpatient visit 40 minutes Fernie Paredes DO Work Phone: [facility] Comment on above: Type 2 diabetes [...] obstructive pulmonary disease, unspecified COPD type; Esophagitis, [place] grade A; Obesity (BMI 30.0-34.9); Idiopathic chronic [...] contralateral eye; Lumbar foraminal stenosis; History of [id number] 09-30-2020; Uterine leiomyoma, unspecified location; Atherosclerosis of [...] History of CVA (cerebrovascular accident) Start[facility] Start: 06-17-2025 [facility] Start: 06-17-2025 End: 06-17-2025 Subsequent hospital visit by physician Dawn Uriarte DPM Work Phone: [facility] MRI Comment on above: Arrived Start: 06-15-2025 ambulatory FERNIE Zaidi [facility] Start: 06-13-2025 ambulatory FERNIE Zaidi [facility] Start: 06-07-2025 ambulatory FERNIE Zaidi [facility] Start: 06-07-2025 End: 06-07-2025 Subsequent hospital visit by physician Katina William ASSEMBLER ARRANGER-ubigrate Work Phone: [facility] CT Scan Comment on above: Arrived Start: 06-07-2025 End: 06-07-2025 Subsequent hospital visit by physician Katina William ASSEMBLER ARRANGER-ubigrate Work Phone: [facility] MRI Comment on above: Arrived Start: 06-07-2025 ambulatory FERNIE Zaidi [facility] Start: 05-30-2025 End: 05-30-2025 Office outpatient visit 15 minutes Dawn Uriarte DPM Work Phone: [facility] Comment on above: Skin ulcer of fourth toe of left foot, limited to breakdown of skin (Primary Dx); Plantar fasciitis; Pain of left foot Start: 05-30-2025 ambulatory FERNIE Zaidi [facility] Start: 05-22-2025 End: 05-22-2025 Patient encounter procedure Ciro Lyles MD Work Phone: Ophthalmology Comment on above: Status post eye surg kun (Primary Dx); Pseudophakia of both eyes; Central retinal artery occlusion, left eye; Optic atrophy of left eye Start: 05-22-2025 End: 05-22-2025 ambulatory CIRO LYLES Facility:[facility] Start: 05-20-2025 End: 05-20-2025 Office outpatient new 45 minutes Katina William 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 Work Phone: [facility] Comment on above: Spinal stenosis, lum bar region, with neurogenic claudication (Primary Dx); Cluneal neuropathy; Other low back pain; Encounter for medication monitoring Start: 05-20-2025 ambulatory [facility]ERNIE M [facility] Start: 05-16-2025 End: 05-16-2025 Office outpatient visit 25 minutes Dawn Uriarte DPArtem Work Phone: [facility] Comment on above: Toe pain, left (Prim yessenia Dx) Start: 05-16-2025 End: 05-16-2025 Subsequent hospital visit by physician Dawn Uriarte DPArtem Work Phone: [facility] Comment on above: Arrived Start: 05-16-2025 ambulatory [place] Artem [facility] Start: 05-15-2025 End: 05-15-2025 Patient encounter procedure Ciro Lyles MD Work Phone: Ophthalmology Comment on above: 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, right (Primary Dx); Pseudophakia of both eyes; Central retinal artery occlusion, left eye; Optic atrophy of left eye Start: 05-15-2025 End: 05-15-2025 ambulatory CIRO LYLES Facility:[facility] Start: 05-10-2025 End: 05-10-2025 Subsequent hospital visit by physician Monse Shipley MD Work Phone: [facility] Radiology Comment on above: Arrived Start: 05-10-2025 End: 05-10-2025 Office outpatient new 30 minutes Monse Shipley MD Work Phone: [facility] Infectious Disease Comment on above: Open wound of fourth toe of left foot, sequela (Primary Dx); Recurrent infections Start: 05-10-2025 ambulatory [facility] Start: 05-06-2025 ambulatory [facility] Start: 05-06-2025 End: 05-06-2025 Subsequent hospital visit by physician Isreal Sigala MD Work Phone: [facility] Rad[facility] Comment on above: Arrived Start: 04-04-2025 End: 04-05-2025 Emergency department patient visit Geronimo Harper DO Work Phone: [facility] Emergency Medicine Comment on above: Depression, unspecif ied depression type (Primary Dx); Alcohol use disorder; Chronic prescription benzodiazepine use; Benzodiazepine withdrawal without complication (Multi); Nonspecific chest pain Start: 03-26-2025 End: 03-26-2025 Office outpatient visit 40 minutes Fernie Paredes DO Work Phone: [facility] Comment on above: Type 2 diabetes [...] disease without esophagitis; Odynophagia; Fatty liver; Esophagitis, [place] grade A; Esophageal stenosis; Duodenal diverticulum; Chronic [...] of cataract extraction, unspecified laterality; History of [id number] 09-30-2020; History of ETOH abuse; S/P total knee arthroplasty, right; S/P unilateral salpingo-oophorectomy Start: 03-26-2025 ambulatory FERNIE Zaidi [facility] Start: 03-06-2025 ambulatory FERNIE Zaidi [facility] Start: 03-06-2025 End: 03-06-2025 Subsequent hospital visit by physician Fernie Paredes DO Work Phone: [facility] Mammography Comment on above: Arrived Start: 02-22-2025 End: 02-22-2025 Patient encounter status Keshawn Nunez MD Work Phone: [facility] Work Phone: Start: 02-22-2025 End: 02-22-2025 Periodic preventive med est patient 65yrs& older Keshawn Nunez MD Work Phone: [facility] 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 [employer]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 Comment on above: Wellness examination (Primary Dx) Start: 02-22-2025 ambulatory [facility] Start: 02-05-2025 End: 02-05-2025 Office outpatient visit 25 minutes Delilah Ellis DO Work Phone: [facility] Gastroenterology Comment on above: Esophageal spasm Start: 02-05-2025 ambulatory FERNIE Zaidi [facility] Start: 01-30-2025 End: 01-30-2025 ambulatory [facility] Start: 2025 End: 2025 ambulatory [facility] Start: 01-18-2025 End: 01-18-2025 ambulatory [facility] Start: 01-16-2025 End: 01-16-2025 ambulatory [facility] Start: 01-14-2025 ambulatory FERNIE Zaidi [facility] Start: 01-14-2025 End: 01-14-2025 Subsequent hospital visit by physician Delilah Ellis DO Work Phone: [facility] Comment on above: Arrived Start: 01-11-2025 End: 01-11-2025 ambulatory [facility] Start: 01-09-2025 End: 01-09-2025 ambulatory [facility] Start: 01-08-2025 ambulatory FERNIE Zaidi [facility] Start: 01-08-2025 End: 01-08-2025 Subsequent hospital visit by physician Fernie Paredes DO Work Phone: [facility] Ultrasound Comment on above: Arrived Start: 01-03-2025 End: 01-03-2025 ambulatory GONSALO LE [facility] Start: 12-31-2024 End: 12-31-2024 Office outpatient visit 40 minutes Fernie Paredes DO Work Phone: [facility] Family Medicine Comment on above: Type 2 [...] Folate deficiency; Elevated LFTs; Fatty liver; Esophagitis, [place] grade A; Esophageal stenosis; Duodenal diverticulum; Chronic [...] right; History of ETOH abuse; History of [id number] 09-30-2020; History of cataract extraction, unspecified laterality; Family history of hypertension in mother; Family history of Alzheimer's disease-Father; Encounter for screening mammogram for breast cancer; Asymptomatic postmenopausal state Start: 12-31-2024 ambulatory FERNIE Artem [facility] Start: 12-31-2024 ambulatory FERNIE Artem [facility] Start: 12-28-2024 End: 12-28-2024 ambulatory [facility] Start: 12-26-2024 End: 12-26-2024 Postop follow up visit related to original px Shi Son Work Phone: [facility] Orthoped[facility] Comment on above: S/P total knee arthr oplasty, left (Primary Dx) Start: 12-26-2024 ambulatory FERNIE M [facility] Start: 12-25-2024 End: 12-25-2024 Office outpatient new 30 minutes Delilah Ellis DO Work Phone: [facility] Gastroenterology Comment on above: Dysphagia, unspecifi ed type (Primary Dx); Esophageal dysmotility Start: 12-25-2024 ambulatory FERNIE Zaidi [facility] Start: 12-18-2024 End: 12-18-2024 ambulatory [facility] Start: 12-13-2024 End: 12-13-2024 ambulatory [facility] Start: 12-11-2024 End: 12-11-2024 ambulatory [facility] Start: 12-05-2024 [facility] Start: 12-05-2024 End: 12-05-2024 Subsequent hospital visit by physician Shi Son Work Phone: [facility] Ultrasound Comment on above: Arrived Start: 12-05-2024 End: 12-05-2024 Postop follow up visit related to original px Shi Son Work Phone: [facility] Orthoped[facility] Comment on above: History of total kne e arthroplasty, left (Primary Dx); Pain of left calf; Calf swelling; Acute postoperative pain of left knee Start: 12-05-2024 End: 12-05-2024 Subsequent hospital visit by physician Shi Son Work Phone: [facility] Radiology Start: 12-05-2024 ambulatory FERNIE Zaidi [facility] Start: 11-30-2024 End: 11-30-2024 ambulatory [facility] Start: 11-29-2024 ambulatory FERNIE Zaidi [facility] Start: 11-29-2024 End: 11-29-2024 Subsequent hospital visit by physician Delilah Ellis DO Work Phone: [facility] Radiology Comment on above: Arrived Start: 11-22-2024 End: 11-22-2024 ambulatory [facility] Start: 11-20-2024 End: 11-20-2024 ambulatory [facility] Start: 11-14-2024 End: 11-14-2024 ambulatory FERNIE ANAIDKATYA [facility] Start: 11-12-2024 End: 11-13-2024 ambulatory FERNIE PAREDES [facility] Start: 11-12-2024 End: 11-13-2024 Subsequent hospital visit by physician Gonsalo Blackwood MD Work Phone: [facility] Med Surg Comment on above: Osteoarthritis of le ft knee Start: 11-01-2024 End: 11-01-2024 Office outpatient visit 40 minutes Fernie Paredes DO Work Phone: [facility] Comment on above: Type 2 diabetes elmira itus with stage 3a chronic kidney disease, without long-term current use of insulin (Primary Dx); Hyperlipidemia LDL goal <70; Hyperthyroidism; Hypertriglyceridemia; Hypomagnesemia; Hypoproteinemia; Idiopathic chronic gout without tophus, unspecified site; Vitamin D deficiency; Hepatomegaly; Odynophagia; Gastroesophageal reflux disease without esophagitis; Folate deficiency; Fatty liver; Esophagitis, [place] grade A; Esophageal stenosis; Duodenal diverticulum; Chronic [...] of cataract extraction, unspecified laterality; History of [id number] 09-30-2020; History of ETOH abuse; Family history of hypertension in mother; Family history of Alzheimer's disease-Father; S/P total knee arthroplasty, right; S/P unilateral salpingo-oophorectomy Start: 11-01-2024 ambulatory FERNIE PAREDES [facility] Start: 10-31-2024 Patient encounter status Fernando Davison MD Work Phone: [facility] Start: 10-31-2024 End: 10-31-2024 Office outpatient visit 25 minutes Fernando Davison MD Work Phone: [facility] Nephrology 2 Comment on above: Chronic kidney disea se, stage II (mild) (Primary Dx) Start: 10-31-2024 ambulatory FERNIE Zaidi [facility] Start: 10-31-2024 ambulatory FERNIE Zaidi [facility] Start: 10-31-2024 ambulatory FERNIE PAREDES [facility] Ambulatory Start: 10-29-2024 End: 04-02-2025 Documentation procedure Rose Mary Zepeda MA [facility] Comment on above: PAF (paroxysmal atri al fibrillation) (HCC) (Primary Dx) Start: 10-29-2024 End: 10-29-2024 Office outpatient visit 15 minutes Brian Brush CNP Work Phone: [facility] Comment on above: Atrial fibrillation, unspecified type (HCC) (Primary Dx) Start: 10-29-2024 ambulatory FERNIE PAREDES [facility] Ambulatory Start: 10-29-2024 End: 10-29-2024 Subsequent hospital visit by physician Delilah Ellis DO Work Phone: [facility] Start: 10-29-2024 [facility] Start: 10-23-2024 End: 10-23-2024 Office outpatient new 45 minutes Delilah Ellis DO Work Phone: [facility] Gastroenterology Comment on above: Dysphagia, unspecifi ed type (Primary Dx); Iron deficiency anemia, unspecified iron deficiency anemia type Start: 10-23-2024 ambulatory FERNIE PAREDES [facility] Start: 10-15-2024 ambulatory FERNIE PAREDES [facility] Start: 10-15-2024 Encounter for other preprocedural examination GONSALO [facility] Start: 10-09-2024 End: 10-09-2024 Office outpatient visit 25 minutes Fernie Paredes DO Work Phone: [facility] Medicine Comment on above: Type 2 diabetes [...] esophagitis; Folate deficiency; Odynophagia; Fatty liver; Esophagitis, [place] grade A; Esophageal stenosis; Duodenal diverticulum; Chronic [...] right; History of ETOH abuse; History of [id number] 09-30-2020; History of cataract extraction, unspecified laterality; Former smoker-Quit 2012; Family history of Alzheimer's disease-Father; Family history of hypertension in mother Start: 10-09-2024 ambulatory FERNIE [facility]idi [facility] Start: 10-02-2024 End: 10-02-2024 ambulatory CIRO LYLES Facility:[facility] Start: 10-02-2024 End: 10-02-2024 Patient encounter procedure Ciro Lyles MD Work Phone: Ophthalmology Comment on above: After cataract not o bscuring vision, bilateral (Primary Dx); Pseudophakia of both eyes; Optic atrophy of left eye; Essential hypertension; Hypercholesteremia Start: 09-19-2024 End: 09-19-2024 Office outpatient visit 25 minutes Naty Bhakta MD Work Phone: Division of Hematology & Oncology at [facility] Comment on above: CLL (chronic lymphoc ytic leukemia) (Primary Dx) Start: 09-19-2024 ambulatory NATY BHAKTA [facility] ity:[facility] Start: 08-30-2024 End: 08-30-2024 Office outpatient visit 40 minutes Gonsalo Blackwood MD Work Phone: [facility] Orth[facility] Comment on above: Left knee pain, unsp ecified chronicity (Primary Dx) Start: 08-30-2024 ambulatory FERNIE [facility] Start: 08-23-2024 ambulatory FERNIE Zaidi [facility] Start: 08-15-2024 ambulatory FERNIE Zaidi [facility] Start: 08-15-2024 End: 08-15-2024 Subsequent hospital visit by physician Isreal Sigala MD Work Phone: [facility] Diagnostic Radiology Comment on above: Arrived Start: 08-14-2024 End: 08-14-2024 ambulatory [facility] Start: 08-07-2024 End: 08-07-2024 ambulatory [facility] Start: 07-17-2024 End: 07-17-2024 ambulatory [facility] Start: 07-10-2024 End: 09-17-2024 Office outpatient visit 25 minutes Fernie Paredes DO Work Phone: [facility] Comment on above: Type 2 diabetes [...] deficiency; Gastroesophageal reflux disease without esophagitis; Esophagitis, [place] grade A; Esophageal stenosis; Duodenal diverticulum; Chronic [...] of cataract extraction, unspecified laterality; History of [id number] 09-30-2020; History of ETOH abuse; Vision loss of left eye; S/P unilateral salpingo-oophorectomy; S/P total knee arthroplasty, right; Family history of Alzheimer's disease-Father Start: 07-09-2024 End: 07-09-2024 ambulatory [facility] Start: 07-03-2024 End: 07-03-2024 ambulatory [facility] Start: 06-29-2024 End: 06-29-2024 ambulatory SILVIA MCNEILL [facility] Start: 06-19-2024 End: 06-19-2024 ambulatory [facility] Start: 06-12-2024 End: 06-12-2024 ambulatory [facility] Start: 05-31-2024 End: 05-31-[address] [facility] Start: 05-22-2024 End: 05-22-2024 Office outpatient visit 15 minutes Brian Brush CNP Work Phone: [facility] Comment on above: Atrial fibrillation, unspecified type (HCC) (Primary Dx) Start: 05-22-2024 End: 05-26-[address] [facility] Start: 05-15-2024 End: 05-15-2024 Subsequent hospital visit by physician Isreal Sigala MD Work Phone: [facility] Diagnostic Radiology Comment on above: Arrived Start: 05-03-2024 End: 05-03-2024 ambulatory [facility] Start: 05-03-2024 End: 05-03-2024 Subsequent hospital visit by physician Isreal Sigala MD Work Phone: [facility] Periop Comment on above: Sacroiliitis Start: 04-17-2024 End: 04-17-2024 Office outpatient visit 40 minutes Fernie Paredes DO Work Phone: [facility] Comment on above: Type 2 diabetes elmira itus with stage 3a chronic kidney disease, without long-term current use of insulin (Primary Dx); Hyperlipidemia LDL goal <70; Hyperthyroidism; Hypertriglyceridemia; Hypomagnesemia; Hypoproteinemia; Idiopathic chronic gout without tophus, unspecified site; Vitamin D deficiency; Hepatomegaly; Gastroesophageal reflux disease without esophagitis; Folate deficiency; Fatty liver; Esophagitis, [place] grade A; Esophageal stenosis; Duodenal diverticulum; Chronic [...] right; History of ETOH abuse; History of [id number] 09-30-2020; History of cataract extraction, unspecified laterality; History of anemia; Family history of Alzheimer's disease Start: 04-17-2024 ambulatory [facility] Start: 04-17-2024 Encounter for other preprocedural examination [facility] Start: 04-17-2024 ambulatory [facility] Start: 04-04-2024 End: 04-04-2024 Office outpatient visit 15 minutes Aviva Mera CNP Work Phone: [facility] Endocrinology Comment on above: Abnormal thyroid sti [...] by physician Aviva Mera CNP Work Phone: [facility] Ultrasound Comment on above: Arrived Start: 03-12-2024 End: 03-12-2024 Office outpatient new 45 minutes Aviva Mera CNP Work Phone: [facility] Endocrinology Comment on above: Abnormal thyroid sti mulating hormone (TSH) level (Primary Dx); Dysphagia, unspecified type; Hyperthyroidism Start: 02-20-2024 End: 02-20-2024 Subsequent hospital visit by physician Isreal Sigala MD Work Phone: [facility] CT Scan Comment on above: Arrived Start: 01-23-2024 End: 01-23-2024 Office outpatient visit 25 minutes Fernie Paredes DO Work Phone: [facility] Family Medicine Comment on above: Type 2 [...] gastritis without bleeding, unspecified gastritis type; Esophagitis, [place] grade A; Esophageal stenosis; Duodenal diverticulum; PVC's [...] of cataract extraction, unspecified laterality; History of [id number] 09-30-2020; History of ETOH abuse; Family history of Alzheimer's disease; Other optic atrophy, left eye; Posterior capsular opacification non visually significant, both eyes-L>R Start: 01-23-2024 End: 01-23-2024 Subsequent hospital visit by physician Isreal Sigala MD Work Phone: [facility] Diagnostic Radiology Comment on above: Arrived Start: 01-10-2024 End: 01-10-2024 Subsequent hospital visit by physician Garry Stephens MD Work Phone: [facility] Procedure Images Comment on above: Arrived Start: 01-10-2024 End: 01-10-2024 Office outpatient visit 15 minutes Garry Stephens MD Work Phone: [facility] Orthopedics & Sports Medicine Comment on above: 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); Pain of right sacroiliac joint; Lumbar spondylosis; Spondylolisthesis of lumbar region; Sacroiliitis Start: 01-10-2024 ambulatory GARRY STEPHENS [facility] Start: 01-06-2024 End: 01-06-2024 Office outpatient visit 15 minutes Aguilar Alexandra [facility] Work Phone: [facility] Phys[facility] Comment on above: Atrial fibrillation, unspecified type (HCC) (Primary Dx) Start: 01-06-2024 End: 01-10-[address] [facility] Start: 11-25-2023 Orders Only Jurgen Holden RN [facility] V[facility] Physicians Comment on above: Atrial fibrillation, unspecified type (HCC) (Primary Dx) Start: 11-24-2023 End: 11-24-2023 Evaluation and management of inpatient [facility] Start: 11-18-2023 End: 11-22-[address] [facility] Start: 11-18-2023 End: 11-22-2023 Encounter for other preprocedural examination [facility] Start: 11-15-2023 Documentation procedure Jurgen Holden RN [facility] Start: 11-11-2023 Documentation procedure Jurgen Holden RN [facility] Start: 11-08-2023 Documentation procedure Jurgen Holden RN [facility] Comment on above: Preop testing (Prima ry Dx); Atrial fibrillation, unspecified type (HCC) Preop testing (Prima ry Dx) Atrial fibrillation, unspecified type (HCC) (Primary Dx) Start: 11-08-2023 Patient encounter status Tomeka Ponce RN [facility] Start: 11-08-2023 End: 11-08-2023 Office outpatient new 60 minutes Kandice Christie MD Work Phone: [facility] Comment on above: Atrial fibrillation, unspecified type (HCC) (Primary Dx); CLL (chronic lymphocytic leukemia) (HCC); NHL (nodular histiocytic lymphoma) (HCC); Essential hypertension Start: 11-08-2023 End: 11-08-2023 ambulatory KANDICE CHRISTIE [facility] Amb[facility] Start: 11-08-2023 ambulatory FERNIE PAREDES [facility] Ambulatory Start: 11-02-2023 End: 11-02-2023 Office outpatient visit 10 minutes Monse Shipley MD Work Phone: [facility] Infectious Disease Comment on above: Open wound of fourth toe of left foot, sequela (Primary Dx); Healthcare maintenance Start: 11-02-2023 End: 11-02-2023 Patient encounter status Monse Shipley MD Work Phone: [facility] Start: 10-31-2023 End: 10-31-2023 Office outpatient visit 25 minutes Fernie Paredes DO Work Phone: [facility] Medicine Comment on above: Type 2 diabetes elmira itus with stage 3a chronic kidney disease, without long-term current use of insulin (Primary Dx); B12 deficiency; Hyperlipidemia LDL goal <70; Hypertriglyceridemia; Hypoproteinemia; Hypomagnesemia; Idiopathic chronic gout without tophus, unspecified site; Anemia, unspecified type; Stage 3a chronic kidney disease; Chronic gastritis without bleeding, unspecified gastritis type; Duodenal diverticulum; Esophageal stenosis; Esophagitis, [place] grade A; Folate deficiency; Fatty liver; Gastroesophageal [...] CLL (chronic lymphocytic leukemia); Macrocytosis; History of [id number] 09-30-2020; Vision loss of left eye; Pseudophakia [...] 25 minutes Fernando Davison MD Work Phone: [facility] Nephrology 2 Comment on above: Chronic kidney disea se, stage II (mild) (Primary Dx) Start: 10-25-2023 Documentation procedure Jurgen Holden RN [facility] Start: 10-19-2023 End: 10-19-2023 Subsequent hospital visit by physician Naty Bhakta MD Work Phone: [facility] Comment on above: Arrived Start: 10-07-2023 End: 10-08-2023 ambulatory EDDI LI Facility:[facility] Start: 09-28-2023 End: 09-28-2023 Office outpatient visit 10 minutes Monse Shipley MD Work Phone: [facility] Infectious Disease Comment on above: Recurrent infections (Primary Dx); Open wound of fourth toe of left foot, sequela; Healthcare maintenance Start: 09-28-2023 End: 09-28-2023 Patient encounter status Monse Shipley MD Work Phone: [facility] Start: 09-26-2023 End: 09-26-2023 Subsequent hospital visit by physician Garry Stephens MD Work Phone: [facility] Procedure Images Comment on above: Arrived Start: 09-26-2023 End: 09-26-2023 Office outpatient visit 15 minutes Garry Stephens MD Work Phone: [facility] Orthopedics & Sports Medicine Comment on above: 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); Pain of right sacroiliac joint Start: 09-21-2023 End: 09-21-2023 Office outpatient visit 40 minutes Naty Bhakta MD Work Phone: Division of Hematology & Oncology at [facility] Comment on above: LUQ abdominal pain ( Primary Dx); CLL (chronic lymphocytic leukemia) Start: 09-20-2023 End: 09-20-2023 Office outpatient visit 15 minutes Dawn COONM Work Phone: [facility] Podiatry Comment on above: Skin ulcer of fourth toe of left foot with fat layer exposed (Primary Dx) Start: 09-09-2023 End: 09-09-2023 Patient encounter procedure Tom Srivastava DMD Work Phone: Dentistry Comment on above: PERCY (obstructive sle ep apnea) (Primary Dx) Start: 09-08-2023 End: 09-08-2023 Office outpatient visit 10 minutes Monse Shipley MD Work Phone: [facility] Infectious Disease Comment on above: Recurrent infections (Primary Dx); Open wound of fourth toe of left foot, sequela Start: 08-29-2023 End: 08-29-2023 ambulatory [facility] Work Phone: Start: 08-29-2023 End: 08-29-2023 Patient encounter procedure [facility] Work Phone: Start: 08-28-2023 End: 08-28-2023 ambulatory [facility] Work Phone: Start: 08-28-2023 End: 08-28-2023 Patient encounter procedure [facility] Work Phone: Start: 08-27-2023 End: 08-27-2023 Patient encounter procedure [facility] Work Phone: Start: 08-26-2023 End: 08-26-2023 ambulatory [facility] Work Phone: Start: 08-26-2023 End: 08-26-2023 Patient encounter procedure [facility] Work Phone: Start: 08-25-2023 End: 08-25-2023 ambulatory [facility] Work Phone: Start: 08-25-2023 End: 08-25-2023 Patient encounter procedure [facility] Work Phone: Start: 08-24-2023 ambulatory Elaine Oquendo STAFF SOFTWARE ENGINEER Facility: [facility] Start: 08-24-2023 End: 08-24-2023 ambulatory [facility] Work Phone: Start: 08-24-2023 End: 08-24-2023 Patient encounter procedure [facility] Work Phone: Start: 08-23-2023 End: 08-23-2023 Office outpatient visit 15 minutes Dawn Uriarte DPM Work Phone: [facility] Podiat[facility] Comment on above: Cellulitis and absce ss of toe of left foot (Primary Dx) Start: 08-23-2023 ambulatory Elaine Oquendo STAFF SOFTWARE ENGINEER Facility: [facility] Start: 08-23-2023 End: 08-23-2023 ambulatory [facility] Work Phone: Start: 08-23-2023 End: 08-23-2023 Patient encounter procedure [facility] Work Phone: Start: 08-22-2023 ambulatory Elaine Castellanoshenryaram STAFF SOFTWARE ENGINEER Facility: [facility] Start: 08-22-2023 End: 08-22-2023 Patient encounter procedure [facility] Work Phone: Start: 08-21-2023 End: 08-21-2023 ambulatory Elaine Castellanoshenryaram STAFF SOFTWARE ENGINEER Facility:[facility] Start: 08-21-2023 End: 08-21-2023 ambulatory [facility] Work Phone: Start: 08-21-2023 End: 08-21-2023 Patient encounter procedure [facility] Work Phone: Start: 08-20-2023 End: 08-20-2023 ambulatory Elaine Azularam STAFF SOFTWARE ENGINEER Facility:[facility] Start: 08-20-2023 End: 08-20-2023 Patient encounter procedure [facility] Work Phone: Start: 08-19-2023 End: 08-19-2023 ambulatory Elaine Azularam STAFF SOFTWARE ENGINEER Facility:[facility] Start: 08-19-2023 End: 08-19-2023 Patient encounter procedure [facility] Work Phone: Start: 08-18-2023 End: 08-18-2023 ambulatory Elaine Azularam STAFF SOFTWARE ENGINEER Facility:[facility] Start: 08-18-2023 End: 08-18-2023 ambulatory [facility] Work Phone: Start: 08-18-2023 End: 08-18-2023 Patient encounter procedure [facility] Work Phone: Start: 08-17-2023 End: 08-17-2023 ambulatory Elaine Lianga STAFF SOFTWARE ENGINEER Facility:[facility] Start: 08-17-2023 End: 08-17-2023 ambulatory [facility] Work Phone: Start: 08-17-2023 End: 08-17-2023 Patient encounter procedure [facility] Work Phone: Start: 08-16-2023 End: 08-16-2023 ambulatory Monse Shipley Facility:[facility] Start: 08-16-2023 End: 08-16-2023 ambulatory [facility] Work Phone: Start: 08-16-2023 End: 08-16-2023 Patient encounter procedure [facility] Work Phone: Start: 08-15-2023 End: 08-15-2023 Office outpatient visit 15 minutes Monse Shipley MD Work Phone: [facility] Infectious Disease Comment on above: Recurrent infections (Primary Dx); Open wound of fourth toe of left foot, sequela; Healthcare maintenance; Elevated glucose Start: 08-15-2023 End: 08-15-2023 Patient encounter status Monse Shipley MD Work Phone: [facility] Start: 08-15-2023 End: 08-15-2023 ambulatory Elaine Azula STAFF SOFTWARE ENGINEER Facility:[facility] Start: 08-15-2023 End: 08-15-2023 ambulatory [facility] Work Phone: Start: 08-15-2023 End: 08-15-2023 Patient encounter procedure [facility] Work Phone: Start: 08-14-2023 End: 08-14-2023 ambulatory Elaine Azula STAFF SOFTWARE ENGINEER Facility:[facility] Start: 08-14-2023 End: 08-14-2023 ambulatory [facility] Work Phone: Start: 08-14-2023 End: 08-14-2023 Patient encounter procedure [facility] Work Phone: Start: 08-13-2023 End: 08-13-2023 ambulatory Elaine Oquendo STAFF SOFTWARE ENGINEER Facility:[facility] Start: 08-13-2023 End: 08-13-2023 ambulatory [facility] Work Phone: Start: 08-13-2023 End: 08-13-2023 Patient encounter procedure [facility] Work Phone: Start: 08-12-2023 End: 08-12-2023 ambulatory Tom Srivastava DMD Work Phone: Dentistry Comment on above: PERCY (obstructive sle ep apnea) (Primary Dx) Start: 08-12-2023 End: 08-12-2023 Telemedicine consultation with patient Tom Srivastava DMD Work Phone: [facility] Start: 08-12-2023 End: 08-12-2023 ambulatory Elaine Oquendo STAFF SOFTWARE ENGINEER Facility:[facility] Start: 08-12-2023 End: 08-12-2023 ambulatory [facility] Work Phone: Start: 08-12-2023 End: 08-12-2023 Patient encounter procedure [facility] Work Phone: Start: 08-11-2023 End: 08-11-2023 Patient encounter procedure Dawn Uriarte DPM Work Phone: [facility] Comment on above: Cellulitis and absce ss of toe of left foot (Primary Dx) Start: 08-11-2023 Encounter for genera l adult medical examination without abnormal findings Monse Shipley [facility] Start: 08-11-2023 End: 08-11-2023 ambulatory Elaine Oquendo STAFF SOFTWARE ENGINEER Facility:[facility] Start: 08-11-2023 End: 08-11-2023 ambulatory [facility] Work Phone: Start: 08-11-2023 End: 08-11-2023 Patient encounter procedure [facility] Work Phone: Start: 08-10-2023 End: 08-10-2023 ambulatory Monse Shipley Facility:[facility] Start: 08-10-2023 End: 08-10-2023 ambulatory [facility] Work Phone: Start: 08-10-2023 End: 08-10-2023 Patient encounter procedure [facility] Work Phone: Start: 08-09-2023 End: 08-09-2023 ambulatory Elaine Lianga STAFF SOFTWARE ENGINEER Facility:[facility] Start: 08-09-2023 End: 08-09-2023 ambulatory [facility] Work Phone: Start: 08-09-2023 End: 08-09-2023 Patient encounter procedure [facility] Work Phone: Start: 08-08-2023 End: 08-08-2023 Patient encounter procedure Ciro Lyles MD Work Phone: Ophthalmology Comment on above: 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); Ischemic stroke (HCC); Cataract, secondary obscuring vision, bilateral; Pseudophakia, both eyes; Essential hypertension; Mixed hyperlipidemia; PERCY (obstructive sleep apnea) Start: 08-08-2023 End: 08-08-2023 ambulatory Elaine Lianga STAFF SOFTWARE ENGINEER Facility:[facility] Start: 08-08-2023 End: 08-08-2023 ambulatory [facility] Work Phone: Start: 08-08-2023 End: 08-08-2023 Patient encounter procedure [facility] Work Phone: Start: 08-07-2023 End: 08-07-2023 ambulatory Elaine Ciesa STAFF SOFTWARE ENGINEER Facility:[facility] Start: 08-07-2023 End: 08-07-2023 ambulatory [facility] Work Phone: Start: 08-07-2023 End: 08-07-2023 Patient encounter procedure [facility] Work Phone: Start: 08-06-2023 End: 08-06-2023 ambulatory Elaine Ciesa STAFF SOFTWARE ENGINEER Facility:[facility] Start: 08-06-2023 End: 08-06-2023 ambulatory [facility] Work Phone: Start: 08-06-2023 End: 08-06-2023 Patient encounter procedure [facility] Work Phone: Start: 08-05-2023 End: 08-05-2023 Patient encounter procedure Tom Srivastava DMD Work Phone: Dentistry Comment on above: PERCY (obstructive sle ep apnea) (Primary Dx) Start: 08-05-2023 End: 08-05-2023 ambulatory Elaine Jere STAFF SOFTWARE ENGINEER Facility:[facility] Start: 08-05-2023 End: 08-05-2023 ambulatory [facility] Work Phone: Start: 08-05-2023 End: 08-05-2023 Patient encounter procedure [facility] Work Phone: Start: 08-04-2023 End: 08-04-2023 ambulatory Avg Mayra Gal Infusion Nurse 5 [facility] Start: 08-04-2023 End: 08-04-2023 Patient encounter procedure Monse Shipley MD Work Phone: [facility] Comment on above: Cellulitis of other specified site (Primary Dx); Open wound of fourth toe of left foot, sequela; Recurrent infections Start: 08-04-2023 End: 08-04-2023 Office outpatient visit 25 minutes Monse Shipley MD Work Phone: [employer] [place] [facility] Comment on above: Cellulitis of other specified site (Primary Dx); Open wound of fourth toe of left foot, sequela; Healthcare maintenance; Recurrent infections Start: 08-04-2023 End: 08-04-2023 Patient encounter status Monse Shipley MD Work Phone: [facility] [facility] Start: 08-03-2023 End: 08-03-2023 ambulatory Avg Mayra Gal Infusion Nurse 5 [facility] Start: 08-03-2023 End: 08-03-2023 Patient encounter procedure Monse Shipley MD Work Phone: [facility] Comment on above: Cellulitis of other specified site (Primary Dx) Start: 08-02-2023 End: 08-02-2023 ambulatory Avg Mayra Gal Infusion Nurse 5 [facility] Start: 08-02-2023 End: 08-02-2023 Patient encounter procedure Monse Shipley MD Work Phone: [facility] Comment on above: Cellulitis of other specified site (Primary Dx) Start: 08-01-2023 End: 08-01-2023 ambulatory Avg Mayra Gal Infusion Nurse 2 [facility] Start: 08-01-2023 End: 08-01-2023 Patient encounter procedure Monse Shipley MD Work Phone: [facility] Comment on above: Cellulitis of other specified site (Primary Dx) Start: 07-31-2023 End: 07-31-2023 ambulatory Avg Mayra Gal Infusion Nurse 3 [facility] Start: 07-31-2023 End: 07-31-2023 Patient encounter procedure Monse Shipley MD Work Phone: [facility] Comment on above: Cellulitis of other specified site (Primary Dx) Start: 07-30-2023 End: 07-30-2023 ambulatory Avg Mayra Gal Infusion Nurse 3 [facility] Start: 07-30-2023 End: 07-30-2023 Patient encounter procedure Monse Shipley MD Work Phone: [facility] Comment on above: Cellulitis of other specified site (Primary Dx) Start: 07-29-2023 End: 07-29-2023 ambulatory Avg Mayra Gal Infusion Nurse 1 [facility] Start: 07-29-2023 End: 07-29-2023 Patient encounter procedure Monse Shipley MD Work Phone: [facility] Comment on above: Cellulitis of other specified site (Primary Dx) Start: 07-29-2023 End: 07-29-2023 Office outpatient visit 40 minutes Monse Shipley MD Work Phone: [facility] [place] Infectious Disease Comment on above: Open wound of fourth toe of left foot, sequela (Primary Dx); Cellulitis of other specified site; Healthcare maintenance Start: 07-29-2023 End: 07-29-2023 Patient encounter status Monse Shipley MD Work Phone: [facility] Start: 07-28-2023 End: 07-28-2023 Office outpatient visit 25 minutes Dawn Uriarte DPM Work Phone: [facility] Podiat[facility] Comment on above: Cellulitis and absce ss of toe of left foot (Primary Dx); Skin ulcer of fourth toe of left foot with fat layer exposed Start: 07-22-2023 End: 07-22-2023 Office outpatient visit 25 minutes Monse Shipley MD Work Phone: [facility] Infectious Disease Comment on above: Cellulitis of other specified site (Primary Dx); Healthcare maintenance; Open wound of fourth toe of left foot, sequela; Recurrent infections Start: 07-22-2023 End: 07-22-2023 Patient encounter status Monse Shipley MD Work Phone: [facility] Start: 07-21-2023 End: 07-21-2023 Patient encounter procedure Dawn Uriarte DPM Work Phone: [facility] Comment on above: Cellulitis and absce ss of toe of left foot (Primary Dx) Start: 07-18-2023 End: 07-18-2023 Office outpatient visit 15 minutes Dawn Uriarte DPM Work Phone: [facility] Comment on above: Cellulitis and absce ss of toe of left foot (Primary Dx) Start: 07-18-2023 End: 07-18-2023 Office outpatient visit 15 minutes Monse Shipley MD Work Phone: [facility] Infectious Disease Comment on above: Cellulitis of other specified site (Primary Dx); Healthcare maintenance; Elevated glucose; Open wound of fourth toe of left foot, sequela Start: 07-18-2023 End: 07-18-2023 Patient encounter status Monse Shipley MD Work Phone: [facility] Start: 07-14-2023 [id number], Provider : Cuca Cervantes, Status: Pen, Time: 10:45 AM Fernie Paredes Work Phone: [facility] [place] Work Phone: Start: 07-13-2023 End: 07-13-2023 Office outpatient visit 15 minutes Monse Shipley MD Work Phone: [facility] Infectious Disease Comment on above: Cellulitis of other specified site (Primary Dx); Elevated glucose; Healthcare maintenance Start: 07-13-2023 End: 07-13-2023 Patient encounter status Monse Shipley MD Work Phone: [facility] Start: 07-12-2023 Patient encounter procedure Fernie Paredes Work Phone: [facility] Work Phone: Start: 07-08-2023 End: 07-08-2023 Subsequent hospital visit by physician Dawn Uriarte [facility] Work Phone: [facility] Periop Comment on above: Abscess of fourth to e of left foot Start: 07-07-2023 [id number], Provider : Laya Gomez, Status: Pen, Time: 10:45 AM Fernie Paredes Work Phone: [facility] [place] Work Phone: Start: 07-07-2023 Patient encounter procedure Fernie Paredes Work Phone: [facility] [place] Work Phone: Start: 07-05-2023 Patient encounter procedure Fernie Paredes Work Phone: [facility] [place] Work Phone: Start: 07-04-2023 End: 07-04-2023 Office outpatient new 45 minutes Monse Shipley MD Work Phone: [facility] Infectious Disease Comment on above: Cellulitis of other specified site (Primary Dx) Start: 07-01-2023 End: 07-01-2023 Patient encounter procedure Tom Srivastava DMD Work Phone: Dentistry Comment on above: PERCY (obstructive sle ep apnea) (Primary Dx) Start: 06-30-2023 [place] [id number], Provider : Laya Gomez, Status: Pen, Time: 11:30 AM Fernie Mcgill Reggie Work Phone: [facility] Work Phone: Start: 06-30-2023 Patient encounter procedure Fernie Paredes Work Phone: [facility] Work Phone: Start: 06-29-2023 End: 06-29-2023 Subsequent hospital visit by physician Dawn Uriarte DPM Work Phone: [facility] Comment on above: Arrived Start: 06-29-2023 End: 06-29-2023 Office outpatient visit 25 minutes Fernie Paredes DO Work Phone: [facility] Comment on above: Type 2 diabetes [...] esophagitis; Fatty liver; Duodenal diverticulum; Hepatomegaly; Esophagitis, [place] grade A; Pulmonary emphysema, unspecified emphysema type; [...] cyst, right; Seborrheic keratosis, inflamed-Left thigh-S/P Excision; [id number] on 09-30-2020; CLL (chronic lymphocytic leukemia); Macrocytosis; [...] 25 minutes Dawn Uriarte DPM Work Phone: [facility] Comment on above: Cellulitis and absce ss of toe of left foot (Primary Dx) Start: 06-24-2023 [facility], Provider : Sheyla Dixon, Status: Pen, Time: 2:00 PM Fernie Paredes Work Phone: [facility] Work Phone: Start: 06-24-2023 Patient encounter procedure Fernie Paredes Work Phone: [facility] Work Phone: Start: 06-22-2023 Patient encounter procedure Fernie Paredes Work Phone: [facility] Work Phone: Start: 06-21-2023 End: 06-21-2023 Office outpatient visit 25 minutes Garry Stephens MD Work Phone: [facility] Orthopedics & Sports Medicine Comment on above: 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); Pain of right sacroiliac joint Start: 06-20-2023 End: 06-20-2023 Subsequent hospital visit by physician Isreal Sigala MD Work Phone: [facility] Comment on above: Arrived Start: 06-14-2023 End: 06-14-2023 Office outpatient visit 25 minutes Dawn COONM Work Phone: [facility] Comment on above: Cellulitis and absce ss of toe of left foot (Primary Dx) Start: 06-14-2023 End: 06-14-2023 Subsequent hospital visit by physician Dawn COONM Work Phone: [facility] Comment on above: Arrived Start: 06-07-2023 End: 06-07-2023 Subsequent hospital visit by physician Isreal Sigala MD Work Phone: [facility] Radiology Comment on above: Arrived Start: 05-10-2023 End: 05-10-2023 Postop follow up visit related to original px Dawn Uriarte DPM Work Phone: [facility] Comment on above: Cellulitis and absce ss of toe of left foot (Primary Dx) Start: 05-05-2023 End: 05-05-2023 Office outpatient new 45 minutes Dawn Uriarte DPM Work Phone: [facility] Comment on above: Cellulitis and absce ss of toe of left foot (Primary Dx) Start: 05-02-2023 End: 05-02-2023 Subsequent hospital visit by physician Rosalee ELIZONDO Work Phone: [facility] Comment on above: Arrived Start: 05-02-2023 End: 05-02-2023 Office outpatient visit 15 minutes Rosalee ELIZONDO Work Phone: [facility] Comment on above: Cellulitis of fourth toe of left foot (Primary Dx) Start: 04-29-2023 End: 04-29-2023 Office outpatient visit 40 minutes Gonsalo Blackwood MD Work Phone: [facility] Orthopedics Comment on above: Toe infection Start: 04-27-2023 End: 04-27-2023 Office outpatient visit 25 minutes Fernando Davison MD Work Phone: [facility] Nephrology 2 Comment on above: Stage 3a chronic kid marcie disease (Primary Dx) Start: 04-21-2023 End: 04-21-2023 Office outpatient visit 15 minutes Shae Whittington 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 Work Phone: [facility] Comment on above: Toe infection (Prima ry Dx) Start: 04-21-2023 End: 04-21-2023 Admission to establishment Gonsalo Blackwood MD Work Phone: [facility] Pre Admission Comment on above: Preop testing (Prima ry Dx); Abnormal finding of blood chemistry, unspecified; Abnormal coagulation profile; Stage 3a chronic kidney disease Start: 04-21-2023 End: 04-21-2023 Patient encounter status Gonsalo Blackwood MD Work Phone: [facility] Start: 04-07-2023 End: 04-07-2023 Patient encounter procedure Tom Srivastava DMD Work Phone: Dentistry Comment on above: PERCY (obstructive sle ep apnea) (Primary Dx) Start: 03-01-2023 End: 03-01-2023 Subsequent hospital visit by physician Fernie Paredes DO Work Phone: [facility] Bone Density Comment on above: Arrived Start: 02-14-2023 End: 02-14-2023 Office outpatient visit 25 minutes Ferniealeksandar Paredes DO Work Phone: [facility] Medicine Comment on above: Type 2 diabetes [...] disease without heart failure; Duodenal diverticulum; Esophagitis, [place] grade A; Esophageal stenosis; Combined forms of [...] inflamed-Left thigh-S/P Excision; CLL (chronic lymphocytic leukemia); [id number] on 09-30-2020; Macrocytosis; Elevated LFTs; Anxiety and [...] 02-05-2023 Emergency department patient visit FERNIE PAREDES [facility] Start: 02-04-2023 End: 02-04-2023 Patient encounter procedure Ciro Lyles MD Work Phone: Ophthalmology Comment on above: Central retinal vishnu ry occlusion, left eye (Primary Dx); Ischemic stroke (HCC); Essential hypertension; Hypercholesteremia; Paroxysmal atrial fibrillation (HCC) Start: 01-07-2023 End: 01-07-2023 Subsequent hospital visit by physician 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 APRN-HYDRAULIC PRESS SERVICER Work Phone: [facility] Mammography Comment on above: Arrived Start: 12-16-2022 End: 12-16-2022 Subsequent hospital visit by physician Isreal Sigala MD Work Phone: [facility] Periop Comment on above: Other spondylosis wi th radiculopathy, lumbar region Start: 12-13-2022 Telephone encounter Shi Morel APRN.HYDRAULIC PRESS SERVICER Work Phone: [place] Provider Adult Comment on above: Results (Zio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 ) Start: 12-06-2022 Telephone encounter Dawn Frost DO Work Phone: Cardiology Comment on above: Forms Start: 11-24-2022 End: 11-24-2022 Patient encounter procedure Eddi Randhawa MD Work Phone: Otolaryngology Comment on above: PERCY (obstructive sle ep apnea) (Primary Dx) Start: 11-22-2022 End: 11-22-2022 Office outpatient visit 25 minutes Fernie Paredes DO Work Phone: [facility] Comment on above: Type 2 diabetes elimra itus with stage 2 chronic kidney disease, without long-term current use of insulin (Primary Dx); Hyperlipidemia LDL goal <70; Hypertriglyceridemia; Idiopathic chronic gout without tophus, unspecified site; B12 deficiency; Chronic gastritis without bleeding, unspecified gastritis type; Folate deficiency; Fatty liver; Anemia, unspecified type; Gastroesophageal reflux disease without esophagitis; Hepatomegaly; Vitamin D deficiency; Duodenal diverticulum; Esophagitis, [place] grade A; Esophageal stenosis; Paroxysmal atrial fibrillation; [...] ml/min; Macrocytosis; Seborrheic keratosis, inflamed-Left thigh-S/P Excision; [id number] on 09-30-2020; Anxiety and depression; Hyponatremia; Vision [...] HPV Start: 11-19-2022 Telephone encounter Laya Barillas APRN.HYDRAULIC PRESS SERVICER Work Phone: Cardiology Comment on above: Patient Question Start: 11-17-2022 Telephone encounter Thomas Cervantes RN NOC Comment on above: Follow Up (Gyant int eraction - F/U - attempt made. No answer ) Start: 11-17-2022 End: 11-17-2022 Subsequent hospital visit by physician Gonsalo Blackwood MD Work Phone: [facility] Radiology Start: 11-17-2022 End: 11-17-2022 Office outpatient new 60 minutes Gonsalo Blackwood MD Work Phone: [facility] Orthopedics Comment on above: Primary osteoarthrit is of left knee (Primary Dx) Start: 11-17-2022 End: 11-17-2022 Office outpatient visit 25 minutes Laya Barillas APRN.HYDRAULIC PRESS SERVICER Work Phone: Cardiology Comment on above: PAF (paroxysmal atri al fibrillation) (HCC) (Primary Dx); Ischemic stroke (HCC); Essential hypertension; PERCY (obstructive sleep apnea); PVC (premature ventricular contraction) Start: 11-11-2022 Telephone encounter Card Nurse [facility] Cardiology Comment on above: Patient Question Start: 11-10-2022 Telephone encounter Eddi Randhawa MD Work Phone: Otolaryngology Comment on above: Results Start: 11-09-2022 End: 11-12-2022 Evaluation and management of inpatient MANOHAR RAO Facility:[facility] Start: 11-05-2022 End: 11-05-2022 Patient encounter procedure Ciro Lyles MD Work Phone: Ophthalmology Comment on above: Central retinal vishnu ry occlusion, left eye (Primary Dx); Ischemic stroke (HCC); Essential hypertension; Hypercholesteremia; Paroxysmal atrial fibrillation (HCC) Start: 10-30-2022 End: 11-02-2022 ambulatory FERNIE PAREDES Facility:[facility] Start: 10-30-2022 End: 10-30-2022 Emergency department patient visit Larry BecerrilAlix Arcadio [facility] Emergency 13 Start: 10-30-2022 End: 10-30-2022 Patient [...] by physician Isreal Sigala MD Work Phone: [facility] Diagnostic Radiology Comment on above: Arrived Start: [...] 15 minutes Dariusz Rangel MD Work Phone: [facility] 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 BLANKS Comment on above: Postoperative examin ation (Primary Dx) Start: 09-28-2022 End: 09-28-2022 Patient encounter procedure Eddi Randhawa MD Work Phone: Otolaryngology Comment on above: EPRCY (obstructive sle ep apnea) (Primary Dx) Start: 09-20-[address] Isreal Sigala Facility:[id number] Start: 09-20-2022 Patient encounter procedure Fernie Paredes Work Phone: [facility] Work Phone: Start: 08-30-2022 Patient encounter procedure Fernie Paredes Work Phone: [facility] Work Phone: Start: 08-30-[address] Isreal Sigala Facility:[id number] Start: 08-27-[address] Fernie Paredes Facility:[id number] Start: 08-27-2022 Patient encounter procedure Fernie Paredes Work Phone: [facility] Work Phone: Start: 08-20-2022 End: 08-20-2022 Office outpatient visit 25 minutes Fernie Paredes DO Work Phone: [facility] Comment on above: Type 2 diabetes elmira itus with stage 2 chronic kidney disease, without long-term current use of insulin (Primary Dx); Hyperlipidemia LDL goal <70; Hypertriglyceridemia; Idiopathic chronic gout without tophus, unspecified site; B12 deficiency; Fatty liver; Chronic gastritis without bleeding, unspecified gastritis type; Folate deficiency; Gastroesophageal reflux disease without esophagitis; Duodenal diverticulum; Esophageal stenosis; Esophagitis, [place] grade A; Anemia, unspecified type; Hepatomegaly; Unspecified [...] stress and urge incontinence; Renal cyst, right; [id number] on 09-30-2020; Seborrheic keratosis, inflamed-Left thigh-S/P Excision; [...] encounter procedure [facility]aredes [facility] Work Phone: Start: 08-17-[address] Fernie Paredes Facility:[id number] Start: 08-17-2022 Patient encounter procedure Fernie Paredes Work [facility] Work Phone: Start: 08-13-2022 [place] [address], Provider : Silvia Mcneill, Status: Pen, Time: 10:00 AM Fernie Paredes Work [facility] Work Phone: Start: 08-11-2022 Patient encounter procedure Fernie Paredes Work Phone: [facility] Work Phone: Start: 08-11-[address] Isreal Sigala Facility:[id number] Start: 08-09-2022 End: 08-09-2022 Office outpatient visit 15 minutes Radha Beatrice Delfino [facility] Work Phone: [facility] 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 BLANKS Comment on above: Mixed stress and urg e urinary incontinence (Primary Dx); Midline cystocele; Urethral hypermobility; Pelvic pain; History of atrial fibrillation Start: 08-05-2022 [place] [address], Provider : Laya Gomez, Status: Pen, Time: 12:15 PM Fernie Paredes [facility] Work Phone: Start: 08-05-2022 Patient encounter procedure Fernie Paredes Work Phone: [facility] Work Phone: Start: 08-05-[address] Isreal Sigala Facility:[id number] Start: 08-03-[address] Isreal Sigala Facility:[id number] Start: 08-03-2022 Patient encounter procedure Fernie Paredes Work Phone: [facility] Work Phone: Start: 07-29-2022 Patient encounter procedure Fernie Paredes Work Phone: [facility] Work Phone: Start: 07-22-2022 Patient encounter procedure Fernie Paredes Work Phone: [facility] Work Phone: Start: 07-22-[address] Isreal Sigala Facility:[id number] Start: 07-08-2022 End: 07-08-2022 Office outpatient visit 25 minutes Dariusz Rangel MD Work Phone: [facility] 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 BLANKS Comment on above: Mixed stress and urg e urinary incontinence (Primary Dx); Midline cystocele; Urethral hypermobility; Pelvic pain; History of atrial fibrillation Start: 06-17-2022 End: 06-17-2022 Subsequent hospital visit by physician Isreal Sigala MD Work Phone: [facility] Comment on above: Sacroiliitis Start: 06-07-2022 End: 06-07-2022 Office outpatient visit 25 minutes Dariusz Rangel MD Work Phone: [facility] 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 BLANKS Comment on above: Dysuria (Primary Dx) ; Detrusor instability of bladder; Urinary frequency; Urethral hypermobility; Functional urinary incontinence Start: 06-01-2022 End: 06-01-2022 Patient encounter procedure Dariusz Rangel MD Work Phone: [facility] 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 BLANKS Comment on above: Urinary incontinence , unspecified type (Primary Dx); Dysuria Start: 05-26-2022 End: 05-26-2022 Office outpatient visit 25 minutes Fernie Paredes DO Work Phone: [facility] Comment on above: Type 2 diabetes [...] without complication; Chronic sinusitis, unspecified location; Esophagitis, [place] grade A; Esophageal stenosis; Duodenal diverticulum; Chronic [...] encounter status Fernie Paredes DO Work Phone: [facility] Start: 04-16-2022 End: 04-16-2022 Office outpatient visit 25 minutes Jonathan Cm HYDRAULIC PRESS SERVICER Work Phone: [facility] Urology Comment on above: Urinary tract infect ion without hematuria, site unspecified (Primary Dx); Urge incontinence; Voiding dysfunction Start: 03-31-2022 End: 04-01-2022 Emergency department patient visit ASAD SEYMOUR [facility] Start: 03-23-2022 End: 03-23-2022 Office outpatient visit 25 minutes Fernie Paredes DO Work Phone: [facility] Medicine Comment on above: Controlled type 2 [...] deficiency; Hepatomegaly; Fatty liver; Duodenal diverticulum; Esophagitis, [place] grade A; Esophageal stenosis; Hypertriglyceridemia; Chronic midline [...] stress and urge incontinence; Renal cyst, right; [id number] on 09-30-2020; CLL (chronic lymphocytic leukemia); Macrocytosis; [...] by physician Garry Stephens MD Work Phone: [facility] Procedure Images Comment on above: Arrived Start: 02-04-2022 End: 02-04-2022 Office outpatient visit 15 minutes Garry Stephens MD Work Phone: [facility] Orthopedics & Sports Medicine Comment on above: Osteoarthritis of le ft sacroiliac joint (Primary Dx); Pain of left sacroiliac joint; Lumbar spondylosis Start: 01-27-2022 End: 01-27-2022 Office outpatient new 45 minutes Washington Garner MD Work Phone: [facility] Urology Comment on above: Urge incontinence (P rimary Dx) Start: 02-13-2021 End: 02-13-2021 Emergency department patient visit Asad Pritchetts DO Work Phone: [facility] Emergency Department Start: 05-12-2018 Patient encounter status Washington Garner MD Work Phone: [facility] Start: 04-16-2018 End: 04-16-2018 Annotation/Addendum Elaine Haque Laser Operator al Medicine Start: 06-10-2017 End: 06-10-2017 Phone Encounter Elaine Haque Laser Operator al Medicine Start: 06-10-2017 End: 06-10-2017 Periodic preventive med est patient 40-64yrs Elaine Haque Internal Medicine Start: 02-15-2017 End: 02-15-2017 Patient encounter procedure Elaine Haque Internal Medicine Start: 02-04-2017 End: 02-04-2017 Office outpatient visit 25 minutes Elaine Haque Internal Medicine Start: 11-09-2016 End: 11-09-2016 Patient encounter procedure Elaine Haque Internal Medicine Start: 05-26-2016 End: 05-26-2016 Phone Encounter Eliane Haque Laser Operator al Medicine Start: 05-05-2016 End: 05-05-2016 Refill Request Elaine Haque Laser Operator al Medicine Start: 04-12-2016 End: 04-12-2016 Patient encounter procedure Elaine Haque Internal Medicine Start: 02-11-2016 End: 02-11-2016 Phone Encounter Elaine Haque Laser Operator al Medicine Start: 12-04-2015 End: 12-04-2015 Office outpatient visit 10 minutes Elaine Haque Internal Medicine Start: 12-04-2015 End: 12-04-2015 Office outpatient new 30 minutes Elaine Haque Internal Medicine Start: 10-23-2015 End: 10-23-2015 Historical Summary Elaine Haque Laser Operator al Medicine Start: 09-15-2015 End: 09-15-2015 Historical Summary Elaine Haque Laser Operator al Medicine Start: 07-23-2015 End: 07-23-2015 Office [...] 10-05-2012 End: 10-05-2012 Phone Encounter Elaine Haque Laser Operator al Medicine Start: 09-08-2012 End: 09-08-2012 Patient encounter procedure Elaine Haque Internal Medicine Start: 12-10-2011 End: 12-10-2011 Phone Encounter Elaine Jere Haque Laser Operator al Medicine Start: 12-03-2011 End: 12-03-2011 Patient encounter procedure Elaine Haque Internal Medicine Start: 11-29-2011 End: 11-29-2011 Phone Encounter Elaine Haque Laser Operator al Medicine Start: 11-19-2011 End: 11-19-2011 Phone Encounter Elaine Haque Laser Operator al Medicine Start: 11-19-2011 End: 11-19-2011 Patient encounter procedure Elaine Haque Internal Medicine Start: 11-18-2011 End: 11-18-2011 Phone Encounter Elaine Haque Laser Operator al Medicine Start: 11-17-2011 End: 11-17-2011 Phone Encounter Elaine Oquendo [facility] Laser Operator al Medicine Start: 10-21-2011 End: 10-21-2011 Patient encounter procedure Elaine Oquendo [facility] Internal Medicine Start: 10-19-2011 End: 10-19-2011 Patient encounter procedure Elaine Oquendo [facility] Internal Medicine Start: 09-03-2010 End: 09-03-2010 Patient encounter procedure Elaine Oquendo [facility] Internal Medicine Start: 06-18-2010 End: 06-18-2010 Patient encounter procedure Elaine Oquendo [facility] Internal Medicine Start: 05-25-2010 End: 05-25-2010 Patient encounter procedure Elaine Oquendo [facility] Internal Medicine Start: 08-22-2008 End: 08-22-2008 Patient encounter procedure Elaine Oquendo [facility] Internal Medicine Start: 03-01-2008 End: 03-01-2008 Office outpatient visit 15 minutes Elaine Oquendo [facility] Internal Medicine Start: 01-26-2008 End: 01-26-2008 Patient encounter procedure Elaine Oquendo [facility] Internal Medicine Start: 12-26-2007 End: 12-26-2007 Phone Encounter Elaine Oquendo [facility] Laser Operator al Medicine Start: 12-26-2007 End: 12-26-2007 Patient encounter procedure Elaine Oquendo [facility] Internal Medicine Start: 10-11-2007 End: 10-11-2007 Office outpatient visit 15 minutes Elaine Oquendo [facility] Internal Medicine Start: 05-10-2007 End: 05-11-2007 Patient encounter procedure Elaine Oquendo [facility] Internal Medicine Start: 03-08-2007 End: 03-08-2007 Nursing evaluation of patient and report Elaine Oquendo [facility] Internal Medicine Start: 02-08-2007 End: 02-10-2007 Patient encounter procedure Elaine Oquendo [facility] Internal Medicine Start: 12-29-2006 End: 12-29-2006 Office outpatient visit 15 minutes Elaine Oquendo [facility] Internal Medicine Start: 11-30-2006 End: 11-30-2006 [facility] Procedures Date Procedure Procedure Detail [...] doug dy 1/> sites axial skel Fernie Paredes DO Work Phone: Start: 03-06-2025 Mammography Fernie [...] with white cell differential, automated Sonido Castaneda 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 Work Phone: Start: 11-12-2024 Radiologic examinati on knee 1/2 views Sonido Castaneda 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 Work Phone: Start: 11-12-2024 End: 11-12-2024 Arthrp kne condyle&platu medial&lat compartments Gonsalo Blackwood MD Work Phone: Start: 10-29-2024 Ecg routine ecg w/le ast 12 lds w/i&r Brian Brush CNP Work Phone: Start: 10-29-2024 DIAGNOSTIC UPPER ENDOSCOPY Delilah Ellis DO Work Phone: Start: 10-02-2024 End: 10-02-2024 Fundus photography w/interpretation & report Ciro Lyles MD Work Phone: Start: 09-19-2024 CBC AND ELECTRONIC DIFF Kymberly Echols 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 Work Phone: Start: 09-19-2024 Complete blood count with white cell differential, automated Kymberly Echols ASSEMBLER ARRANGER-[facility] Work Phone: Start: 09-19-2024 Comprehensive metabo lic panel Kymberly Echols ASSEMBLER ARRANGER-[facility] Work Phone: Start: 07-09-2024 Lipid 1996 panel - Serum or Plasma Ciro Lyles MD Work Phone: Start: 05-22-2024 Ecg routine ecg w/le ast 12 lds w/i&r Brianeugenia Brush [facility] Work Phone: Start: 01-23-2024 [facility] Isreal sesay MD Work Phone: Start: 01-19-2024 Lipid 1996 panel - Serum or Plasma Ciro Lyles MD Work Phone: Start: 01-19-2024 Microalbumin [Mass/volume] in Urine by Test strip Brianeugenia Brush [facility] Work Phone: Start: 01-10-2024 US Unspecified body region Garry Stephens MD Work Phone: Start: 01-10-2024 Arthrocentesis aspir&/inj major jt/bursa w/us Garry Stephens MD Work Phone: Start: 01-06-2024 Ecg routine ecg w/le ast 12 lds w/i&r Aguilar Alexandra [facility] Work Phone: Start: 11-08-2023 Ecg routine ecg w/le ast 12 lds w/i&r Kandice Christie MD Work Phone: Start: 10-19-2023 Ct abdomen & pelvis w/contrast material Sean Khan MD, PhD Work Phone: Start: 09-26-2023 US Unspecified body region Garry Stephens MD Work Phone: Start: 09-26-2023 Arthrocentesis aspir&/inj major jt/bursa w/us Garry Stephens MD Work Phone: Start: 09-21-2023 CBC AND ELECTRONIC DIFF Kymberly Echols 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 Work Phone: Start: 09-21-2023 Complete blood count with white cell differential, automated Kymberly Echols 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 Work Phone: Start: 09-21-2023 Comprehensive metabo lic panel Kymberly Echols 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 Work Phone: Start: 08-11-2023 Incision & drainage [...] Uriarte DPM Work Phone: Start: 06-21-2023 Injection single/tire trucker trigger point 1/2 muscles Garry Stephens MD Work Phone: Start: 06-20-2023 Mri spinal canal lum bar w/o contrast material Isreal Sigala MD Work Phone: Start: 06-14-2023 Radex foot complete minimum 3 views Dawn Urirate DPM Work Phone: Start: 06-07-2023 Radex spine [...] 02-04-2023 Computerized ophthal linette imaging retina Ciro Llyes MD Work Phone: Start: 02-03-2023 Microscopic observat ion [Identifier] in Cervix by Cyto stain Fernie Paredes DO Work Phone: Start: 01-07-2023 Mammography Ciro olson MD Work Phone: Start: 11-05-2022 End: 11-05-2022 Computerized ophthalmic imaging retina Ciro Lyles MD Work Phone: Start: 11-01-2022 Lipid 1996 panel - Serum or Plasma Tom Srivastava DMD Work Phone: Start: 10-30-2022 Paracentsis ant sherry b eye aspir aqueous spx Ciro Lyles MD Work Phone: Start: 09-29-2022 CBC AND ELECTRONIC DIFF Geronimo A Chuck 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 Work Phone: Start: 09-29-2022 Complete blood count with white cell differential, automated Geronimo A Chuck 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 Work Phone: Start: 09-29-2022 Comprehensive metabo lic panel Geronimo A Chuck 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 Work Phone: Start: 06-07-2022 Culture bacterial quanttative colony count urine Dariusz Rangel MD Work Phone: Start: 06-01-2022 URODYNAMICS Ronda cerna CAFETERIA MONITOR Start: 04-16-2022 Urnls dip stick/tabl et rgnt auto w/o microscopy Jonathan Cm HYDRAULIC PRESS SERVICER Work Phone: Start: 03-23-2022 Urnls dip stick/tabl [...] Density Study (HP) Comments: See Note; NOTES: [facility] Imaging Services [address] [place], [place] [id number] Verdana 4d Dexa Bone Density Study () MR#: [id number] Acct: [id number] Name: ELENA GALEANO Rep #: [id number] : 1960 F 57 From: Torres Sanderson MD PCP: Elaine Oquendo Status: REG CLI Study: Dexa Bone Density Study (HP) Date of Exam: 02/24/17 Exam# [id number] Ordering Dr: Elaine Oquendo STUDY: DUAL ENERGY [...] Torres Sanderson MD at 8:07 EDT Tel [phone], Service support , CC: Elaine Oquendo Mortgage Assistant: Signed Elaine Oquendo Work Phone: Start: 02-24-2017 End: 02-25-2017 SCREENING MAMM (CAD), BILAT Comments: See Note; NOTES: [facility] Imaging Services [address] [place] [address] Verdana 4d SCREENING MAMM (CAD), BILAT MR#: [id number] Acct: [id number] Name: ELENA GALEANO Rep #: [id number] : 1960 F 57 From: Torres Sanderson MD PCP: Elaine Oquendo Status: REG CLI Study: SCREENING MAMM (CAD), BILAT Date of Exam: 02/24/17 Exam# [id number] Ordering Dr: Elaine Oquendo MAMMOGRAPHY - BILATERAL [...] delay biopsy of a clinically suspicious abnormality. [id number] Electronically Signed: Torres Sanderson MD at 9:04 EDT Tel [phone], Service support , CC: Elaine Oquendo Mortgage Assistant: Signed Elaine Oquendo Work Phone: Start: 02-11-2017 End: 02-11-2017 Esophagus Only Comments: See Note; NOTES: [facility] Imaging Services [address] [place] [address] Verdana 4d Esophagus Only MR#: [id number] Acct: [id number] Name: ELENA GALEANO Rep #: [id number] : 1960 F 57 From: Torres Sanderson MD PCP: Elaine Oquendo Status: REG CLI Study: Esophagus Only Date of Exam: 02/11/17 Exam# [id number] Ordering Dr: Elaine Oquendo STUDY: X-RAY - ESOPHAGUS (BARIUM SWALLOW) [...] Torres Sanderson MD at 20:01 EDT Tel [phone], Service support , CC: Elaine Oquendo Mortgage Assistant: Signed Elaine Oquendo Work Phone: Start: 02-12-2016 End: 02-12-2016 Abdomen/Pelvis WITH Contrast Comments: See Note; NOTES: [facility] Imaging Services [address] [place] [address] [place] 4d Abdomen/Pelvis WITH Contrast MR#: [id number] Acct: [id number] Name: ELENA GALEANO Rep #: [id number] : 1960 F 56 From: Richardson Escalante MD PCP: Roxann Yan MD Status: REG CLI Study: Abdomen/Pelvis WITH Contrast Date of Exam: 02/12/16 Exam# [id number] Ordering Dr: Yahir Bertrand MD STUDY: CT [...] MD at 16:57 EDT , Service support [phone], CC: Roxann Yan MD; Yahir Bertrand Mortgage Assistant: Signed Elaine Oquendo Start: 01-16-2016 End: 01-16-2016 Abdomen Limited Comments: See Note; NOTES: [facility] Imaging Services [address] [place] [address] Verda 4d Abdomen Limited MR#: [id number] Acct: [id number] Name: ELENA GALEANO Rep #: [id number] : 1960 F 55 From: Magdiel Cunningham MD PCP: Roxann Yan MD Status: REG CLI Study: Abdomen Limited Date of Exam: 01/16/16 Exam# [id number] Ordering Dr: Yahir Bertrand MD STUDY: ABDOMINAL [...] at 9:55 EDT Tel , Service support [phone], CC: Roxann Yan MD; Yahir Bertrand Mortgage Assistant: Signed Elaine Oquendo Start: 12-10-2015 End: 12-10-2015 Pulmonary Function Report Comp Comments: See Note; NOTES: [facility] Pulmonary Services/Neurology [address] [place] [address] Pulmonary Function Test (Comp) MR#: [id number] Acct: [id number] Name: ELENA GALEANO Rep #: [id number] : 1960 55 From: Carol Warren MD Referring Dr: Carol Warren MD Status: REG CLI Ordering Dr: Carol Warren MD Date: 12/08/15 Location: [facility] Sex: F C DATE OF SERVICE: 12/08/2015 [...] C: The patient's primary care physician T: [facility] JOB: [id number] 12/10/15 0737 <Electronically signed by Carol Warren MD> Date Carol Warren MD CC: Carol Warren MD; Roxann Yan MD Date Dictated: 12/09/15 0954 Date Transcribed: 12/09/1554 Mortgage Assistant: Signed Elaine Oquendo Start: 08-06-2015 End: 08-06-2015 Pulmonary Function Report Comp Comments: See Note; NOTES: [facility] Pulmonary Services/Neurology [address] [place] [address] Pulmonary Function Test (Comp) MR#: [id number] Acct: [id number] Name: ELENA GALEANO Rep #: [id number] : 1960 55 From: Carol Warren MD Referring Dr: Carol Warren MD Status: REG CLI Ordering Dr: Carol Warren MD Date: 08/05/15 Location: [facility] Sex: F C DATE OF SERVICE: 08/05/2015 [...] disorder. CAROL WARREN MD T: [facility] JOB: [id number] 08/06/15 1647 <Electronically signed by Carol Warren MD> Date Carol Warren MD CC: Carol Warren MD; Roxann Yan MD Date Dictated: 08/06/15 0735 Date Transcribed: 08/06/15734 Mortgage Assistant: Signed Elaine Oquendo Start: 08-04-2015 End: 08-04-2015 Sleep Study Report Comments: See Note; NOTES: [facility] SLEEP DISORDER CENTER [address] [place] [address] Polysomnography with NCPAP MR#: [id number] Acct: [id number] Name: ELENA GALEANO Rep #: [id number] : 1960 55 From: Delilah Crespo MD [...] version). Please note that a reference to [facility] AHI in this report is consistent with the current Hypopnea definition according to Medicare Criteria and an AASM AHI reference is consistent with the current Hypopnea definition according to the AASM criteria and is recognized by [facility] as the RDI. PROCEDURE: The study was attended continuously by a pressure testing technician. Monitored parameters included left and right [...] calculated body mass index of 38.3 and Coral Sleepiness Scale score of 9/24. The patient [...] MD. Delilah Crespo MD T: [facility] JOB: [id number] CC: Delilah Crespo MD 11 1108/04/15 1649 <Electronically signed by Delilah Crespo MD> Date Delilah Crespo MD Co-signature (if applicable) Date Signed Elaine Oquendo Start: 07-21-2015 End: 07-21-2015 Sleep Study Report Comments: See Note; NOTES: [facility] SLEEP DISORDER CENTER [address] [place] [address] Polysomnography MR#: [id number] Acct: [id number] Name: ELENA GALEANO Rep #: [id number] : 1960 55 From: Delilah Crespo MD [...] version). Please note that a reference to [facility] AHI in this report is consistent with the current Hypopnea definition according to Medicare Criteria and an AASM AHI reference is consistent with the current Hypopnea definition according to the AASM criteria and is recognized by [facility] as the RDI. PROCEDURE: The study was attended continuously by a pressure testing technician. Monitored parameters included left and right [...] calculated body mass index of 39.1 and Coral Sleepiness Scale score of 9/24. The patient [...] better means of titrating the patient given [id number] variability of REM sleep with most patient's [...] MD Delilah Crespo MD T: [facility] JOB: [id number] CC: Delilah Crespo MD 14 1515 07/21/152006 <Electronically signed by Delilah Crespo MD> Date Delilah Crespo MD Co-signature (if applicable) Date Signed Elaine Oquendo Start: 06-04-2015 End: 06-04-2015 Emergency Department Summary Comments: See Note; NOTES: [facility] Medical Records Department [address] [place] [address] Emergency Department Summary MR#: [id number] Acct: [id number] Name: ELENA GALEANO Rep #: [id number] : 1960 55 From: Clara Vargas MD PCP: Roxann Yan MD Status: [facility] ER DATE OF SERVICE: 05/26/2015 This patient [...] improved. Clara Vargas MD T: [facility] JOB: [id number] Date Clara Vargas MD 06/04/15 0003 <Electronically signed by Naty Cifuentes MD> Cosigner Signature (If Indicated): Date Naty Cifuentes MD CC: Roxann Yan MD Date Dictated: 05/26/15 1639 Date Transcribed: 05/26/151638 Mortgage Assistant: Alexys Oquendo Start: 05-31-2015 End: 05-31-2015 Emergency Department Summary Comments: See Note; NOTES: [facility] Medical Records Department [address] [place] [address] Emergency Department Summary MR#: [id number] Acct: [id number] Name: ELENA GALEANO Rep #: [id number] : 1960 55 From: Clara Vargas MD PCP: Roxann Yan MD Status: [facility] ER DATE OF SERVICE: 05/26/2015 This patient [...] of discharge. DISPOSITION: Home IMPRESSION: Vertigo, improved. Claar Vargas MD T: [facility] JOB: [id number] Date Clara Vargas MD Cosigner Signature (If Indicated): Date CC: Roxann Yan MD Date Dictated: 05/26/151638 Date Transcribed: 05/26/151638 Mortgage Assistant: Signed Elaine Jere Start: 05-29-2015 End: 05-29-2015 Discharge Instruction Comments: See Note; NOTES: [facility] Medical Records Department [address] [place] [address] Discharge Instruction 05/26/15 1626 MR#: [id number] Acct: [id number] Name: ELENA GALEANO Rep #: [id number] : 1960 55 From: Clara Vargas MD [...] problems, contact your doctor. Call [facility] ([phone]) or report to the closest Emergency Room. Call 911 if necessary. 05/26/15 1630 <Electronically signed by Clara Vargas MD> Date Clara Vargas MD 05/29/15 0711<Electronically signed by Naty Cifuentes MD> Cosigner Signature (If Indicated): Date Naty Cifuentes MD CC: Roxann Yan MD Elaine Oquendo Start: 12-28-2014 End: 12-28-2014 Chest WITH Contrast Comments: See Note; NOTES: [facility] Imaging Services [address] [place] [address] CAT Scan Report MR#: [id number] Acct: [id number] Name: ELENA GALEANO Rep #: [id number] : 1960 F 54 From: Yoselin Ku MD PCP: Roxann Yan MD Status: REG CLI Study: Chest WITH Contrast Date of Exam: 12/28/14 Exam# [id number] Ordering Dr: Yahir Bertrand MD STUDY: CT [...] at 10:15 EST Tel , Service support [phone], CC: Roxann Yan MD; Yahir Bertrand Mortgage Assistant: Signed Elaine Oquendo Start: 05-07-2014 End: 05-07-2014 Inital Evaluation - PT Comments: See Note; NOTES: [facility] Physical Therapy [facility]. [address] [place], [place] [address] Fax REHABILITATION SERVICES INITIAL EVALUATION MR#: [id number] Acct: [id number] Name: ELENA GALEANO Rep #: [id number] : 1960 54 From: Melody Brannon Referring Dr.: Roxann Yan MD Status: REG RCR Insurance: [facility] Eval Date: MED MUT SECONDARY DATE OF [...] on her side. WORK: She works at [employer], sitting most of the day at a [...] pain. Melody Brannon DPT T: [facility] JOB: [id number] <Electronically signed by Melody Brannon > 05/07/14 0859 CC: Signed For Medicare only, by signing this I certify the plan of care. __ Physicians Signature Date Elaine Oquendo Start: 09-18-2013 End: 09-24-2013 Liver Comments: See Note; NOTES: [facility] Imaging Services [address] [place] [address] Ultrasound Report MR#: [id number] Acct: [id number] Name: ELENA GALEANO Rep #: [id number] : 1960 F 53 From: Magdiel Cunningham MD PCP: Roxann Yan MD Status: REG CLI Study: Liver Date of Exam: 09/18/13 Exam# [id number] Ordering Dr: Roxann Yan MD STUDY: ABDOMINAL [...] M.D. at 11:08 EST , Service support [phone], CC: Roxann Yan MD Mortgage Assistant: Signed Roxann Yan Work Phone: Start: 05-31-2013 [...] Phone: H/O: surgery S/P unilateral salpingo-oophorectomy Fernie Pardees DO Work Phone: H/O: surgery S/P unilateral [...] Author Start: 12-31-2029 Lipid panel Lipid Screening [facility] Start: 07-09-2029 Lipid panel Lipid Screening [facility] Start: 01-18-2029 Lipid panel Lipid Screening [facility] Start: 07-29-2028 Lipid 1996 panel - Serum or Plasma Lipid Screening [facility] Start: 04-14-2028 DTaP/Tdap/Td Vaccines (2 - Td or Tdap) DTaP/Tdap/Td Vaccines (2 - Td or Tdap) [facility] Start: 04-14-2028 Tetanus vaccination [facility] Start: 04-14-2028 Urine microalbumin profile [facility] Start: 04-07-2028 Colonoscopy COLONOSCOPY [facility] Start: 04-07-2028 Screening for malignant neoplasm of colon [facility] Start: 04-04-2028 Diabetes Screening Diabetes Screening [facility] Start: 11-01-2027 Lipid 1996 panel - Serum or Plasma Lipid Screening [facility] Start: 11-01-2027 LIPID SCREEN LIPID SCREEN [facility] Start: 09-19-2027 Diabetes Screening Diabetes Screening [facility] Start: 03-20-2027 Diabetes Screening Diabetes Screening [facility] Start: 03-06-2027 Screening for osteoporosis DEXA SCAN [facility] Start: 07-29-2026 Diabetes Screening Diabetes Screening [facility] Start: 06-15-2026 Lipid panel LIPIDS [facility] Start: 06-15-2026 Potassium [Moles/volume] in Serum or Plasma POTASSIUM [facility] Start: 06-15-2026 Urine screening for protein URINE MICROALBUMIN TEST [facility] Start: 05-15-2026 Glaucoma screening EYE EXAM [facility] Start: 04-21-2026 DIABETES SCREEN DIABETES SCREEN [facility] Start: 04-21-2026 Diabetes Screening Diabetes Screening [facility] Start: 03-26-2026 Diabetic foot examination DIABETIC FOOT EXAM [facility] Start: 03-13-2026 Glaucoma screening EYE EXAM [facility] Start: 03-06-2026 Screening for malignant neoplasm of breast [facility] Start: 02-14-2026 DIABETES SCREEN DIABETES SCREEN [facility] Start: 02-03-2026 Screening for malignant neoplasm of cervix [facility] Start: 12-31-2025 Diabetes mellitus screening Diabetes Screening [facility] Start: 12-31-2025 Diabetic foot examination DIABETIC FOOT EXAM [facility] Start: 12-31-2025 Lipid panel LIPIDS [facility] Start: 12-31-2025 Potassium [Moles/volume] in Serum or Plasma POTASSIUM [facility] Start: 12-31-2025 Urine screening for protein URINE MICROALBUMIN TEST [facility] Start: 12-16-2025 Hemoglobin A1c measurement HBA1C TEST [facility] Start: 11-22-2025 DIABETES SCREEN DIABETES SCREEN [facility] Start: 11-13-2025 Potassium [Moles/volume] in Serum or Plasma POTASSIUM [facility] Start: 11-13-2025 End: 11-13-2025 Patient encounter procedure 11/13/2025 1:30 PM EST Office Visit [facility] [address] [place] [address] Shi Son [address] [place] [address] [facility] Start: 11-12-2025 DIABETES SCREEN DIABETES SCREEN [facility] Start: 11-11-2025 DIABETES SCREEN DIABETES SCREEN [facility] Start: 11-07-2025 End: 11-07-2025 Patient encounter procedure 11/07/2025 9:30 AM EST Office Visit [facility] 2 [address] [place] [address] Fernando Davison MD [address] [place] [address] [facility] 2 Start: 11-06-2025 End: 11-06-2025 Patient encounter procedure [facility] Start: 11-05-2025 End: 11-05-2025 Patient encounter procedure [facility] Start: 11-02-2025 DIABETES SCREEN DIABETES SCREEN [facility] Start: 11-01-2025 DIABETES SCREEN DIABETES SCREEN [facility] Start: 11-01-2025 Diabetic foot examination DIABETIC FOOT EXAM [facility] Start: 10-30-2025 End: 10-30-2025 Patient encounter procedure [facility] 2 Start: 10-15-2025 Potassium [Moles/volume] in Serum or Plasma POTASSIUM [facility] Start: 10-11-2025 End: 10-11-2025 Patient encounter procedure 10/11/2025 10:45 AM EST Office Visit [facility] [address] [place] [address] Katina William, 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 [address] [place] [address] [facility] Start: 10-09-2025 Diabetic foot examination DIABETIC FOOT EXAM [facility] Start: 10-02-2025 Glaucoma screening [facility] Start: 09-19-2025 Potassium [Moles/volume] in Serum or Plasma POTASSIUM [facility] Start: 09-17-2025 End: 09-17-2025 Patient encounter procedure 09/17/2025 11:00 AM EST Office Visit [facility] [address] [address] Fernie Paredes DO [address] [facility] [address] [place] [address] [facility] Start: 09-13-2025 End: 09-13-2025 Patient encounter procedure 09/13/2025 9:45 AM EST Office Visit [facility] [address] [place] [address] Ciro Lyles MD [address] [place] [address] after cataract 6mths Ophthalmology Comment on above: after cataract 6mths Start: 09-11-2025 End: 09-11-2025 Patient encounter procedure Division of Hematology & Oncology at [facility] Start: 08-09-2025 End: 08-09-2025 Patient encounter procedure 08/09/2025 9:45 AM EDT Office Visit [facility] [address] [place] [address] Katina William, 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 [address] [place] [address] [facility] Start: 07-10-2025 Diabetic foot examination DIABETIC FOOT EXAM [facility] Start: 07-09-2025 Lipid panel LIPIDS [facility] Start: 07-09-2025 Potassium [Moles/volume] in Serum or Plasma POTASSIUM [facility] Start: 07-09-2025 Urine screening for protein URINE MICROALBUMIN TEST [facility] Start: 07-03-2025 Hemoglobin A1c measurement HBA1C TEST [facility] Start: 06-27-2025 End: 06-27-2025 Patient encounter procedure [facility] Start: 06-27-2025 End: 06-27-2025 Patient encounter procedure 06/27/2025 8:10 AM EDT Office Visit [facility] [address] [place] [address] Dawn Uriarte, SHAGGYM [address] [place] [address] [facility] Start: 06-24-2025 Influenza vaccination INFLUENZA VACCINE (#1) [facility] Start: 06-20-2025 End: 06-20-2025 Patient encounter procedure [facility] Start: 06-17-2025 End: 06-17-2025 Patient encounter procedure 06/17/2025 5:00 PM EDT Appointment [facility] [address] [place] [address] Dawn Uriarte, SHAGGYM [address] [place] [address] [facility] Start: 06-13-2025 End: 06-13-2025 Patient encounter procedure [facility] Start: 06-07-2025 End: 06-07-2025 Patient encounter procedure [facility] Start: 05-30-2025 End: 05-30-2026 MR Foot - left WO contrast MRI FOOT LEFT WITHOUT CONTRAST Imaging Routine Skin ulcer of fourth toe of left foot, limited to breakdown of skin Expected: 05/30/2025, Expires: 05/30/2026 [facility] Comment on above: Expected: 05/30/2025, Expires: Start: 05-30-2025 End: 05-30-2025 Patient encounter procedure 05/30/2025 11:30 AM EDT Office Visit [facility] [address] [place] [address] Dawn Uriarte, SHAGGYM [address] [place] [address] [facility] Start: 05-22-2025 eGFR Diabetes eGFR Diabetes [facility] Start: 05-22-2025 Urine screening for protein eGFR Diabetes [facility] Start: 05-22-2025 End: 05-22-2025 Patient encounter procedure 05/22/2025 11:45 AM EDT Office Visit [facility] [address] [place] [id number] Ciro Lyles MD [address] [place] [address] [facility] [address] [address] post op yag Ophthalmology Comment on above: post op yag Start: 05-20-2025 End: 05-21-2025 DRUG SCREEN MED COMPLIANCE I DRUG SCREEN MED COMPLIANCE I Lab Routine Encounter for medication monitoring Expected: 05/20/2025, Expires: 05/21/2025 [facility] Comment on above: Expected: 05/20/2025, Expires: 5 Start: 05-20-2025 End: 05-20-2026 MR Lumbar spine WO contrast MRI SPINE LUMBAR WITHOUT CONTRAST Imaging Routine Spinal stenosis, lumbar region, with neurogenic claudication Cluneal neuropathy Other low back pain Expected: 05/20/2025, Expires: 05/20/2026 [facility] Comment on above: Expected: 05/20/2025, Expires: 6 Start: 05-20-2025 End: 05-20-2025 Patient encounter procedure 05/20/2025 1:00 PM EDT Office Visit [facility] [address] [place] [address] Katina William, 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 [address] [facility] [place] [address] [facility] Start: 05-16-2025 End: 05-16-2026 XR Toe fourth - left Views [facility] Comment on above: Expected: 05/16/2025, Expires: 1 Occurrences starti ng 05/16/2025 until 05/16/2025 Start: 05-16-2025 End: 05-16-2025 Patient encounter procedure 05/16/2025 1:00 PM EDT Office Visit [facility] [address] [place] [address] Dawn Uriarte, ANDREA [address] [place] [address] [facility] Start: 05-10-2025 End: 05-10-2026 Bacterial culture and sensitivity [facility] Comment on above: Expected: 05/10/2025, Expires: Start: 04-17-2025 Diabetic foot examination DIABETIC FOOT EXAM [facility] Start: 04-17-2025 Screening for malignant neoplasm of lung LUNG CANCER SCREENING [facility] Start: 04-15-2025 Hemoglobin A1c measurement [facility] Start: 04-02-2025 End: 04-02-2025 Patient encounter procedure 04/02/2025 1:30 PM EDT Office Visit [facility] [address] [place] [address] Ciro Lyles MD [address] [place] [address] after cataract 6mths Ophthalmology Comment on above: after cataract 6mths Start: 03-26-2025 End: 03-26-2025 Patient encounter procedure [facility] Start: 03-26-2025 End: 03-26-2026 Complete blood count with white cell differential, automated CBC, EDIF, PLATELET Lab Routine Type 2 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 disease, without long-term current use of insulin Idiopathic chronic gout without tophus, unspecified site Iron deficiency anemia, unspecified iron deficiency anemia type PVC's (premature ventricular contractions) Hyperthyroidism Essential hypertension Expected: 03/26/2025, Expires: 03/26/2026 [facility] Comment on above: Expected: 03/26/2025, Expires: Start: 03-26-2025 End: 03-26-2026 Comprehensive metabolic 2000 panel - Serum or Plasma COMPREHENSIVE METABOLIC PANEL Lab Routine Type 2 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 disease, without long-term current use of insulin Idiopathic chronic gout without tophus, unspecified site PVC's (premature ventricular contractions) Hyperthyroidism Essential hypertension Expected: 03/26/2025, Expires: 03/26/2026 [facility] Comment on above: Expected: 03/26/2025, Expires: Start: 03-26-2025 End: 03-26-2026 Cyanocobalamin vitamin b-12 VITAMIN B12 Lab Routine Iron deficiency anemia, unspecified iron deficiency anemia type Expected: 03/26/2025, Expires: 03/26/2026 [facility] Comment on above: Expected: 03/26/2025, Expires: Start: 03-26-2025 End: 03-26-2026 Ferritin [Mass/volume] in Serum or Plasma FERRITIN Lab Routine Iron deficiency anemia, unspecified iron deficiency anemia type Expected: 03/26/2025, Expires: 03/26/2026 [facility] Comment on above: Expected: 03/26/2025, Expires: Start: 03-26-2025 End: 03-26-2026 Folate [Mass/volume] in Serum or Plasma FOLATE, SERUM Lab Routine Iron deficiency anemia, unspecified iron deficiency anemia type Expected: 03/26/2025, Expires: 03/26/2026 [facility] Comment on above: Expected: 03/26/2025, Expires: Start: 03-26-2025 End: 03-26-2026 Hemoglobin A1c/Hemoglobin.total in Blood HEMOGLOBIN A1C Lab Routine Type 2 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 disease, without long-term current use of insulin Expected: 03/26/2025, Expires: 03/26/2026 [facility] Comment on above: Expected: 03/26/2025, Expires: Start: 03-26-2025 End: 03-26-2026 IRON/IRON BINDING/TRANSFERRIN IRON/IRON BINDING/TRANSFERRIN Lab Routine Iron deficiency anemia, unspecified iron deficiency anemia type Expected: 03/26/2025, Expires: 03/26/2026 [facility] Comment on above: Expected: 03/26/2025, Expires: Start: 03-26-2025 End: 03-26-2026 LIPID PANEL W CALCULATED LDL LIPID PANEL W CALCULATED LDL Lab Routine Type 2 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 disease, without long-term current use of insulin Idiopathic chronic gout without tophus, unspecified site PVC's (premature ventricular contractions) Hyperthyroidism Essential hypertension Expected: 03/26/2025, Expires: 03/26/2026 [facility] Comment on above: Expected: 03/26/2025, Expires: Start: 03-26-2025 End: 03-26-2026 Magnesium [Mass/volume] in Serum or Plasma MAGNESIUM Lab Routine Type 2 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 disease, without long-term current use of insulin PVC's (premature ventricular contractions) Essential hypertension Expected: 03/26/2025, Expires: 03/26/2026 [facility] Comment on above: Expected: 03/26/2025, Expires: Start: 03-26-2025 End: 03-26-2026 MICROALBUMIN/CREATININE RATIO MICROALBUMIN/CREATININE RATIO Fluids Routine Type 2 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 disease, without long-term current use of insulin Expected: 03/26/2025, Expires: 03/26/2026 [facility] Comment on above: Expected: 03/26/2025, Expires: Start: 03-26-2025 End: 03-26-2026 PTH INTACT PTH INTACT Lab Routine Type 2 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 disease, without long-term current use of insulin Expected: 03/26/2025, Expires: 03/26/2026 [facility] Comment on above: Expected: 03/26/2025, Expires: Start: 03-26-2025 End: 03-26-2026 Thyrotropin [Units/volume] in Serum or Plasma TSH Lab Routine Type 2 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 disease, without long-term current use of insulin Idiopathic chronic gout without tophus, unspecified site PVC's (premature ventricular contractions) Hyperthyroidism Essential hypertension Expected: 03/26/2025, Expires: 03/26/2026 [facility] Comment on above: Expected: 03/26/2025, Expires: Start: 03-26-2025 End: 03-26-2026 Thyroxine (T4) free [Mass/volume] in Serum or Plasma T4 FREE Lab Routine Hyperthyroidism Expected: 03/26/2025, Expires: 03/26/2026 [facility] Comment on above: Expected: 03/26/2025, Expires: Start: 03-26-2025 End: 03-26-2026 Urate [Mass/volume] in Serum or Plasma URIC ACID Lab Routine Type 2 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 disease, without long-term current use of insulin Idiopathic chronic gout without tophus, unspecified site PVC's (premature ventricular contractions) Essential hypertension Expected: 03/26/2025, Expires: 03/26/2026 [facility] Comment on above: Expected: 03/26/2025, Expires: Start: 03-26-2025 End: 03-26-2026 URINE PROTEIN/CREA RATIO, RANDOM URINE PROTEIN/CREA RATIO, RANDOM Fluids Routine Type 2 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 disease, without long-term current use of insulin Expected: 03/26/2025, Expires: 03/26/2026 [facility] Comment on above: Expected: 03/26/2025, Expires: Start: 03-26-2025 End: 03-26-2026 VITAMIN D (25-HYDROXY,TOTAL) VITAMIN D (25-HYDROXY,TOTAL) Lab Routine Type 2 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 disease, without long-term current use of insulin Expected: 03/26/2025, Expires: 03/26/2026 [facility] Comment on above: Expected: 03/26/2025, Expires: Start: 03-20-2025 Potassium [Moles/volume] in Serum or Plasma POTASSIUM [facility] Start: 03-06-2025 End: 03-06-2025 Patient encounter procedure [facility] Bone Density Start: 03-04-2025 End: 03-04-2025 Patient encounter procedure 03/04/2025 10:30 AM EDT Office Visit [facility] [address] [place] [address] Delilah Calderon, [address] [place] [address] [facility] Start: 03-01-2025 Screening for osteoporosis DEXA SCAN [facility] Start: 02-22-2025 End: 02-22-2025 Patient encounter procedure 02/22/2025 11:00 AM EDT Office Visit [facility] 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 BLANKS [address] [place] [address] Keshawn Nunez MD [address] [place] [phone] [facility] 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 BLANKS Start: 02-08-2025 End: 02-08-2025 Patient encounter procedure 02/08/2025 2:20 PM EDT Office Visit [facility] 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 [address] [place] [phone] 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, 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 [id number] [place] [address] [facility] 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 BLANKS Start: 02-03-2025 Screening for malignant neoplasm of cervix PAP SMEAR [facility] Start: 01-22-2025 Diabetic foot examination DIABETIC FOOT EXAM [facility] Start: 01-22-2025 Screening for malignant neoplasm of breast [facility] Start: 01-22-2025 Screening for malignant neoplasm of lung LUNG CANCER SCREENING [facility] Start: 01-18-2025 Lipid panel LIPIDS [facility] Start: 01-18-2025 Potassium [Moles/volume] in Serum or Plasma POTASSIUM [facility] Start: 01-18-2025 Urine screening for protein [facility] Start: 01-14-2025 End: 01-14-2025 Patient encounter procedure 01/14/2025 7:00 AM EDT Appointment [facility] [address] [place] [phone] Rhonda Porter, Delilah Misbah, DO [address] [place] [address] [facility] Start: 01-13-2025 Glaucoma screening EYE EXAM [facility] Start: 01-06-2025 Hemoglobin A1c measurement HBA1C TEST [facility] Start: 12-31-2024 End: 12-31-2024 Patient encounter procedure 12/31/2024 3:00 PM EDT Office Visit [facility] [address] [address] Fernie Paredes, 600 [facility] [address] [place] [address] [facility] Start: 12-31-2024 End: 12-31-2025 DXA Skeletal system.axial Views for bone density BONE DENSITY AXIAL (HIP, PELVIS, SPINE) Imaging Routine Asymptomatic postmenopausal state Expected: 12/31/2024, Expires: 12/31/2025 [facility] Comment on above: Expected: 12/31/2024, Expires: Start: 12-31-2024 End: 12-31-2025 MG Breast - bilateral Screening MAMMO SCREENING WITH ALEXANDER BILATERAL Imaging Routine Encounter for screening mammogram for breast cancer Expected: 12/31/2024, Expires: 12/31/2025 [facility] Comment on above: Expected: 12/31/2024, Expires: Start: 12-31-2024 End: 12-31-2025 US.doppler Carotid arteries - bilateral VASC DUPLEX CAROTID BILATERAL Imaging Routine Bilateral carotid artery stenosis-30% Right, 60% Left Expected: 12/31/2024, Expires: 12/31/2025 [facility] Comment on above: Expected: 12/31/2024, Expires: Start: 12-30-2024 DIABETES SCREEN DIABETES SCREEN [facility] Start: 12-26-2024 End: 12-26-2024 Patient encounter procedure 12/26/2024 11:00 AM EST Office Visit [facility] [address] [place] [address] SaikennEmilyaram Mcgill [address] [place] [address] [facility] Start: 12-05-2024 End: 12-05-2024 Patient encounter procedure 12/05/2024 2:30 PM EST Office Visit [facility] [address] [place] [address] Huy Shi M [address] [place] [address] [facility] Start: 11-29-2024 End: 11-29-2024 ambulatory [facility] Speech Therapy Start: 11-29-2024 End: 11-29-2024 Patient encounter procedure 11/29/2024 1:00 PM EST Appointment [facility] Radiology [address] [place] [address] Delilah Ellis Jr., DO [address] [place] [address] [facility] Start: 11-12-2024 End: 11-12-2024 Admission to same day surgery center [facility] Periop Comment on above: ARTHROPLASTY KNEE TOTAL Start: 11-12-2024 End: 11-12-2024 Arthrp kne condyle&platu medial&lat compartments [facility] Start: 11-12-2024 Subsequent hospital visit by physician [facility] Comment on above: Osteoarthritis of left knee, unspecified osteoarthritis type Start: 11-01-2024 End: 11-01-2024 Patient encounter procedure 11/01/2024 2:30 PM EST Office Visit [facility] [address] [place] [address] Fernie Paredes DO [address] [place] [address] [facility] Start: 10-31-2024 End: 10-31-2025 Complete blood count with white cell differential, automated CBC, EDIF, PLATELET Lab Routine Chronic kidney disease, stage II (mild) Expected: 10/31/2024, Expires: 10/31/2025 [facility] Comment on above: Expected: 10/31/2024, Expires: Start: 10-31-2024 Diabetic foot examination DIABETIC FOOT EXAM [facility] Start: 10-31-2024 End: 10-31-2025 Magnesium [Mass/volume] in Serum or Plasma MAGNESIUM Lab Routine Chronic kidney disease, stage II (mild) Expected: 10/31/2024, Expires: 10/31/2025 [facility] Comment on above: Expected: 10/31/2024, Expires: Start: 10-31-2024 End: 10-31-2025 MICROALBUMIN/CREATININE RATIO MICROALBUMIN/CREATININE RATIO Fluids Routine Chronic kidney disease, stage II (mild) Expected: 10/31/2024, Expires: 10/31/2025 [facility] Comment on above: Expected: 10/31/2024, Expires: Start: 10-31-2024 End: 10-31-2025 PTH INTACT PTH INTACT Lab Routine Chronic kidney disease, stage II (mild) Expected: 10/31/2024, Expires: 10/31/2025 [facility] Comment on above: Expected: 10/31/2024, Expires: Start: 10-31-2024 End: 10-31-2025 RENAL FUNCTION PANEL RENAL FUNCTION PANEL Lab Routine Chronic kidney disease, stage II (mild) Expected: 10/31/2024, Expires: 10/31/2025 [facility] Comment on above: Expected: 10/31/2024, Expires: Start: 10-31-2024 Screening for malignant neoplasm of lung LUNG CANCER SCREENING [facility] Start: 10-31-2024 End: 10-31-2025 Sodium [Moles/volume] in Urine SODIUM, RANDOM URINE Fluids Routine Chronic kidney disease, stage II (mild) Expected: 10/31/2024, Expires: 10/31/2025 [facility] Comment on above: Expected: 10/31/2024, Expires: Start: 10-31-2024 End: 10-31-2025 Urinalysis, reagent strip without microscopy URINALYSIS, MACRO Fluids Routine Chronic kidney disease, stage II (mild) Expected: 10/31/2024, Expires: 10/31/2025 [facility] Comment on above: Expected: 10/31/2024, Expires: Start: 10-31-2024 End: 10-31-2025 URINE PROTEIN/CREA RATIO, RANDOM URINE PROTEIN/CREA RATIO, RANDOM Fluids Routine Chronic kidney disease, stage II (mild) Expected: 10/31/2024, Expires: 10/31/2025 [facility] Comment on above: Expected: 10/31/2024, Expires: Start: 10-31-2024 End: 10-31-2024 Patient encounter procedure [facility] Neph[facility] 2 Start: 10-29-2024 End: 10-29-2025 Basic metabolic 2000 panel - Serum or Plasma Basic metabolic panel Lab Routine Atrial fibrillation, unspecified type (HCC) Expected: 10/29/2024, Expires: 10/29/2025 [facility] Work Phone: Comment on above: Expected: 10/29/2024, Expires: Start: 10-29-2024 End: 10-29-2025 Complete blood count with white cell differential, manual CBC and Differential Lab Routine Atrial fibrillation, unspecified type (HCC) Expected: 10/29/2024 (Approximate), Expires: 10/29/2025 [facility] Comment on above: Expected: 10/29/2024 (Approximate), Expi res: 10/29/2025 Start: 10-24-2024 Advance Directive Discussion Advance Directive Discussion [facility] Start: 10-23-2024 End: 10-23-2024 Patient encounter procedure 10/23/2024 8:00 AM EST Office Visit [facility] [address] [place] [address] Rhonda Porter, Delilah Crawley DO [address] [place] [address] [facility] Start: 10-22-2024 Potassium [Moles/volume] in Serum or Plasma POTASSIUM [facility] Start: 10-19-2024 End: 10-19-2024 Patient encounter procedure 10/19/2024 11:00 AM EST Office Visit [facility] [address] [address] Fernie Praedes DO 600 [facility] [address] [place] [address] [facility] Start: 10-15-2024 End: 10-15-2024 Admission to [facility] Pre Admission Comment on above: Preop testing [...] tophus, unspecified site Expected: 10/09/2024, Expires: 10/09/2025 [facility] Comment on above: Expected: 10/09/2024, Expires: Start: 10-09-2024 End: 10-09-2025 Comprehensive metabolic 2000 panel - Serum or Plasma COMPREHENSIVE METABOLIC PANEL Lab Routine Type 2 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 disease, without long-term current use of insulin Stage 3a chronic kidney disease Hyperlipidemia LDL goal <70 Hyperthyroidism Hypomagnesemia Idiopathic chronic gout without tophus, unspecified site Expected: 10/09/2024, Expires: 10/09/2025 [facility] Comment on above: Expected: 10/09/2024, Expires: Start: 10-09-2024 End: 10-09-2025 Cyanocobalamin vitamin b-12 VITAMIN B12 Lab Routine Iron deficiency anemia, unspecified iron deficiency anemia type Expected: 10/09/2024, Expires: 10/09/2025 [facility] Comment on above: Expected: 10/09/2024, Expires: Start: 10-09-2024 End: 10-09-2025 Ferritin [Mass/volume] in Serum or Plasma FERRITIN Lab Routine Iron deficiency anemia, unspecified iron deficiency anemia type Expected: 10/09/2024, Expires: 10/09/2025 [facility] Comment on above: Expected: 10/09/2024, Expires: Start: 10-09-2024 End: 10-09-2025 Folate [Mass/volume] in Serum or Plasma FOLATE, SERUM Lab Routine Iron deficiency anemia, unspecified iron deficiency anemia type Expected: 10/09/2024, Expires: 10/09/2025 [facility] Comment on above: Expected: 10/09/2024, Expires: Start: 10-09-2024 End: 10-09-2025 Hemoglobin A1c/Hemoglobin.total in Blood HEMOGLOBIN A1C Lab Routine Type 2 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 disease, without long-term current use of insulin Expected: 10/09/2024, Expires: 10/09/2025 [facility] Comment on above: Expected: 10/09/2024, Expires: Start: 10-09-2024 End: 10-09-2025 IRON/IRON BINDING/TRANSFERRIN IRON/IRON BINDING/TRANSFERRIN Lab Routine Iron deficiency anemia, unspecified iron deficiency anemia type Expected: 10/09/2024, Expires: 10/09/2025 [facility] Comment on above: Expected: 10/09/2024, Expires: Start: 10-09-2024 End: 10-09-2025 LIPID PANEL W CALCULATED LDL LIPID PANEL W CALCULATED LDL Lab Routine Type 2 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 disease, without long-term current use of insulin Stage 3a chronic kidney disease Hyperlipidemia LDL goal <70 Hyperthyroidism Hypomagnesemia Idiopathic chronic gout without tophus, unspecified site Expected: 10/09/2024, Expires: 10/09/2025 [facility] Comment on above: Expected: 10/09/2024, Expires: Start: 10-09-2024 End: 10-09-2025 Magnesium [Mass/volume] in Serum or Plasma MAGNESIUM Lab Routine Type 2 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 disease, without long-term current use of insulin Stage 3a chronic kidney disease Hypomagnesemia Expected: 10/09/2024, Expires: 10/09/2025 [facility] Comment on above: Expected: 10/09/2024, Expires: Start: 10-09-2024 End: 10-09-2025 MICROALBUMIN/CREATININE RATIO MICROALBUMIN/CREATININE RATIO Fluids Routine Type 2 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 disease, without long-term current use of insulin Expected: 10/09/2024, Expires: 10/09/2025 [facility] Comment on above: Expected: 10/09/2024, Expires: Start: 10-09-2024 End: 10-09-2024 Patient encounter procedure 10/09/2024 2:00 PM EST Office Visit [facility] [address] [phone] Fernie Paredes DO [address] [phone] [facility] Start: 10-09-2024 End: 10-09-2025 PTH INTACT PTH INTACT Lab Routine Type 2 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 disease, without long-term current use of insulin Stage 3a chronic kidney disease Expected: 10/09/2024, Expires: 10/09/2025 [facility] Comment on above: Expected: 10/09/2024, Expires: Start: 10-09-2024 End: 10-09-2025 Thyrotropin [Units/volume] in Serum or Plasma TSH Lab Routine Type 2 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 disease, without long-term current use of insulin Stage 3a chronic kidney disease Hyperlipidemia LDL goal <70 Hyperthyroidism Hypomagnesemia Idiopathic chronic gout without tophus, unspecified site Expected: 10/09/2024, Expires: 10/09/2025 [facility] Comment on above: Expected: 10/09/2024, Expires: Start: 10-09-2024 End: 10-09-2025 Thyroxine (T4) free [Mass/volume] in Serum or Plasma T4 FREE Lab Routine Hyperthyroidism Expected: 10/09/2024, Expires: 10/09/2025 [facility] Comment on above: Expected: 10/09/2024, Expires: Start: 10-09-2024 End: 10-09-2025 Urate [Mass/volume] in Serum or Plasma URIC ACID Lab Routine Type 2 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 disease, without long-term current use of insulin Stage 3a chronic kidney disease Idiopathic chronic gout without tophus, unspecified site Expected: 10/09/2024, Expires: 10/09/2025 [facility] Comment on above: Expected: 10/09/2024, Expires: Start: 10-09-2024 End: 10-09-2025 URINE PROTEIN/CREA RATIO, RANDOM URINE PROTEIN/CREA RATIO, RANDOM Fluids Routine Type 2 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 disease, without long-term current use of insulin Expected: 10/09/2024, Expires: 10/09/2025 [facility] Comment on above: Expected: 10/09/2024, Expires: Start: 10-09-2024 End: 10-09-2025 VITAMIN D (25-HYDROXY,TOTAL) VITAMIN D (25-HYDROXY,TOTAL) Lab Routine Type 2 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 disease, without long-term current use of insulin Stage 3a chronic kidney disease Vitamin D deficiency Expected: 10/09/2024, Expires: 10/09/2025 [facility] Comment on above: Expected: 10/09/2024, Expires: Start: 10-02-2024 End: 10-02-2024 Patient encounter procedure 10/02/2024 3:00 PM EST Office [place] [address] Ciro Lyles MD [address] [place] [address] Sec. Cat/possible yag return in 6 months Ophthalmology Comment on above: Sec. Cat/possible yag return in 6 months Start: 09-21-2024 Influenza vaccination INFLUENZA VACCINE (#1) [facility] stem Comment on above: Postponed from 06/24/2024 (patient prefe desi) Start: 09-21-2024 Potassium [Moles/volume] in Serum or Plasma POTASSIUM [facility] Start: 09-19-2024 End: 09-19-2024 Patient encounter procedure 09/19/2024 11:20 AM EST Office Visit Division of Hematology & Oncology at [facility] [address] [place] [phone] Naty Bhakta MD [address] [place] [address] Division of Hematology & Oncology at [facility] Start: 08-30-2024 End: 08-30-2024 Patient encounter procedure 08/30/2024 2:40 PM EST Office Visit [facility] [address] [place] [address] Gonsalo Blackwood MD [address] [place] [address] [facility] Start: 08-17-2024 End: 08-17-2024 Patient encounter procedure 08/17/2024 11:00 AM EDT Office Visit [facility] Medication Management [place] [address] [address] [facility] Medication [facility] Start: 08-08-2024 Diabetic foot examination DIABETIC FOOT EXAM [facility] Start: 08-08-2024 Glaucoma screening [facility] Start: 08-08-2024 PNEUMOCOCCAL (3 - PPSV23 if available, else PCV20) PNEUMOCOCCAL (3 - PPSV23 if available, else PCV20) [facility] Start: 08-08-2024 Pneumococcal vaccination PNEUMOCOCCAL VACCINE SERIES (3 - PPSV23 if available, else PCV20) [facility] Start: 08-08-2024 PNEUMOCOCCAL VACCINE SERIES (3 - PPSV23 if available, else PCV20) PNEUMOCOCCAL VACCINE SERIES (3 - PPSV23 if available, else PCV20) [facility] Start: 08-08-2024 PNEUMOCOCCAL VACCINE SERIES (3 - PPSV23 or PCV20) PNEUMOCOCCAL VACCINE SERIES (3 - PPSV23 or PCV20) [facility] Start: 08-08-2024 PNEUMOCOCCAL VACCINE SERIES (3 of 4 - PPSV23) PNEUMOCOCCAL VACCINE SERIES (3 of 4 - PPSV23) [facility] Start: 08-08-2024 Pneumococcal Vaccine: 65+ (3 - PPSV23 or PCV20) Pneumococcal Vaccine: 65+ (3 - PPSV23 or PCV20) [facility] Start: 08-08-2024 PNEUMOCOCCAL: 65+ (3 - PPSV23 if available, else PCV20) PNEUMOCOCCAL: 65+ (3 - PPSV23 if available, else PCV20) [facility] Start: 08-08-2024 PNEUMOCOCCAL: 65+ (3 - PPSV23 or PCV20) PNEUMOCOCCAL: 65+ (3 - PPSV23 or PCV20) [facility] Start: 08-08-2024 Screening for malignant neoplasm of lung LUNG CANCER SCREENING [facility] Start: 08-04-2024 Potassium [Moles/volume] in Serum or Plasma POTASSIUM [facility] Start: 07-29-2024 Lipid panel LIPIDS [facility] Start: 07-29-2024 Potassium [Moles/volume] in Serum or Plasma POTASSIUM [facility] Start: 07-29-2024 Urine screening for protein URINE MICROALBUMIN TEST [facility] Start: 07-21-2024 Hemoglobin A1c measurement [facility] Start: 07-10-2024 End: 07-10-2024 Patient encounter procedure 07/10/2024 2:00 PM EDT Office Visit [facility] [address] [address] Fernie Paredes DO 600 [facility] [address] [place] [address] [facility] Start: 06-29-2024 Potassium [Moles/volume] in Serum or Plasma POTASSIUM [facility] Start: 06-29-2024 Screening for malignant neoplasm of lung LUNG CANCER SCREENING [facility] Start: 06-29-2024 Urine screening for protein URINE MICROALBUMIN TEST [facility] Start: 06-24-2024 COVID-19 Vaccine () COVID-19 Vaccine () [facility] Start: 06-24-2024 Influenza vaccination INFLUENZA VACCINE (#1) [facility] Start: 05-31-2024 End: 05-31-2024 Patient encounter procedure 05/31/2024 9:00 AM EDT Appointment [facility] CT Scan [address] [place] [address] Kandice Christie MD [address] [place] [address] [facility] [address] Scan Start: 05-24-2024 End: 11-24-2024 CTA Pulmonary veins W contrast IV CT Pulmonary Vein With Reconstructions 3D Imaging Routine Atrial fibrillation, unspecified type (HCC) Expected: 05/24/2024, Expires: 11/24/2024 [facility] Work Phone: Comment on above: Expected: 05/24/2024, Expires: Start: 05-22-2024 End: 05-22-2024 Patient encounter procedure 05/22/2024 10:30 AM EDT Office Visit [facility] [address] [facility] [place] [phone] Aguilar Alexandra, JULISSA [address] [place] [address] [facility] Start: 05-13-2024 Diabetic foot examination DIABETIC FOOT EXAM [facility] Start: 05-13-2024 Screening for malignant neoplasm of lung LUNG CANCER SCREENING [facility] Start: 05-03-2024 End: 05-03-2024 Admission to same [...] Potassium [Moles/volume] in Serum or Plasma POTASSIUM [facility] Start: 04-21-2024 Urine screening for protein URINE MICROALBUMIN TEST [facility] Start: 04-17-2024 End: 04-17-2025 Complete blood count with white cell differential, automated CBC, EDIF, PLATELET Lab Routine Type 2 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 disease, without long-term current use of insulin Hyperlipidemia LDL goal <70 Hyperthyroidism Hypomagnesemia Hypoproteinemia Idiopathic chronic gout without tophus, unspecified site Folate deficiency B12 deficiency Expected: 04/17/2024, Expires: 04/17/2025 [facility] Comment on above: Expected: 04/17/2024, Expires: Start: 04-17-2024 End: 04-17-2025 Comprehensive metabolic 2000 panel - Serum or Plasma COMPREHENSIVE METABOLIC PANEL Lab Routine Type 2 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 disease, without long-term current use of insulin Hyperlipidemia LDL goal <70 Hyperthyroidism Hypomagnesemia Hypoproteinemia Idiopathic chronic gout without tophus, unspecified site Expected: 04/17/2024, Expires: 04/17/2025 [facility] Comment on above: Expected: 04/17/2024, Expires: Start: 04-17-2024 End: 04-17-2025 Cyanocobalamin vitamin b-12 VITAMIN B12 Lab Routine Folate deficiency B12 deficiency History of anemia Expected: 04/17/2024, Expires: 04/17/2025 [facility] Comment on above: Expected: 04/17/2024, Expires: Start: 04-17-2024 End: 04-17-2025 Ferritin [Mass/volume] in Serum or Plasma FERRITIN Lab Routine History of anemia Expected: 04/17/2024, Expires: 04/17/2025 [facility] Comment on above: Expected: 04/17/2024, Expires: Start: 04-17-2024 End: 04-17-2025 Folate [Mass/volume] in Serum or Plasma FOLATE, SERUM Lab Routine Folate deficiency B12 deficiency History of anemia Expected: 04/17/2024, Expires: 04/17/2025 [facility] Comment on above: Expected: 04/17/2024, Expires: Start: 04-17-2024 End: 04-17-2025 Hemoglobin A1c/Hemoglobin.total in Blood HEMOGLOBIN A1C Lab Routine Type 2 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 disease, without long-term current use of insulin Expected: 04/17/2024, Expires: 04/17/2025 [facility] Comment on above: Expected: 04/17/2024, Expires: Start: 04-17-2024 End: 04-17-2025 IRON/IRON BINDING/TRANSFERRIN IRON/IRON BINDING/TRANSFERRIN Lab Routine History of anemia Expected: 04/17/2024, Expires: 04/17/2025 [facility] Comment on above: Expected: 04/17/2024, Expires: Start: 04-17-2024 End: 04-17-2025 LIPID PANEL W CALCULATED LDL LIPID PANEL W CALCULATED LDL Lab Routine Type 2 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 disease, without long-term current use of insulin Hyperlipidemia LDL goal <70 Hyperthyroidism Hypomagnesemia Hypoproteinemia Idiopathic chronic gout without tophus, unspecified site Expected: 04/17/2024, Expires: 04/17/2025 [facility] Comment on above: Expected: 04/17/2024, Expires: Start: 04-17-2024 End: 04-17-2025 Magnesium [Mass/volume] in Serum or Plasma MAGNESIUM Lab Routine Type 2 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 disease, without long-term current use of insulin Hypomagnesemia Expected: 04/17/2024, Expires: 04/17/2025 [facility] Comment on above: Expected: 04/17/2024, Expires: Start: 04-17-2024 End: 04-17-2025 MICROALBUMIN/CREATININE RATIO MICROALBUMIN/CREATININE RATIO Fluids Routine Type 2 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 disease, without long-term current use of insulin Expected: 04/17/2024, Expires: 04/17/2025 [facility] Comment on above: Expected: 04/17/2024, Expires: Start: 04-17-2024 End: 04-17-2025 PTH INTACT PTH INTACT Lab Routine Type 2 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 disease, without long-term current use of insulin Expected: 04/17/2024, Expires: 04/17/2025 [facility] Comment on above: Expected: 04/17/2024, Expires: Start: 04-17-2024 End: 04-17-2025 Thyrotropin [Units/volume] in Serum or Plasma TSH Lab Routine Type 2 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 disease, without long-term current use of insulin Hyperlipidemia LDL goal <70 Hyperthyroidism Hypomagnesemia Hypoproteinemia Idiopathic chronic gout without tophus, unspecified site Expected: 04/17/2024, Expires: 04/17/2025 [facility] Comment on above: Expected: 04/17/2024, Expires: Start: 04-17-2024 End: 04-17-2025 Urate [Mass/volume] in Serum or Plasma URIC ACID Lab Routine Type 2 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 disease, without long-term current use of insulin Idiopathic chronic gout without tophus, unspecified site Expected: 04/17/2024, Expires: 04/17/2025 [facility] Comment on above: Expected: 04/17/2024, Expires: Start: 04-17-2024 End: 04-17-2025 URINE PROTEIN/CREA RATIO, RANDOM URINE PROTEIN/CREA RATIO, RANDOM Fluids Routine Type 2 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 disease, without long-term current use of insulin Expected: 04/17/2024, Expires: 04/17/2025 [facility] Comment on above: Expected: 04/17/2024, Expires: Start: 04-17-2024 End: 04-17-2025 VITAMIN D (25-HYDROXY,TOTAL) VITAMIN D (25-HYDROXY,TOTAL) Lab Routine Type 2 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 disease, without long-term current use of insulin Vitamin D deficiency Expected: 04/17/2024, Expires: 04/17/2025 [facility] Comment on above: Expected: 04/17/2024, Expires: Start: 04-17-2024 End: 04-17-2024 Patient encounter procedure 04/17/2024 1:00 PM EDT Office Visit [facility] [address] [place] [address] Fernie Paredes DO [address] [place] [address] [facility] Start: 04-17-2024 End: 04-17-2024 Admission to establishment 04/17/2024 11:00 AM EDT Pre-Operative Nurse Assessment Dyan Belington Pre Admission [address] [place] [id number] Dyan Belington Pre Admission Start: 04-04-2024 End: 04-04-2024 Patient encounter procedure 04/04/2024 2:00 PM EDT Office Visit [facility] End[facility] [address] [place] [address] Aviva Mera, [employer]IC [employer]ESS SERVICER [address] [place] [address] [facility] Start: 04-03-2024 End: 04-03-2024 Patient encounter procedure 04/03/2024 1:00 PM EDT Office Visit [facility] [address] [place] [address] Aviva Mera, HYDRAULIC PRESS SERVICER [address] [place] [address] [facility] Start: 03-12-2024 End: 03-12-2025 CBC,PLATELETS CBC,PLATELETS Lab Routine Abnormal thyroid stimulating hormone (TSH) level Hyperthyroidism Expected: 03/12/2024, Expires: 03/12/2025 [facility] Comment on above: Expected: 03/12/2024, Expires: Start: 03-12-2024 End: 03-12-2025 Comprehensive metabolic 2000 panel - Serum or Plasma COMPREHENSIVE METABOLIC PANEL Lab Routine Abnormal thyroid stimulating hormone (TSH) level Hyperthyroidism Expected: 03/12/2024, Expires: 03/12/2025 [facility] Comment on above: Expected: 03/12/2024, Expires: Start: 03-12-2024 End: 03-12-2025 THYROGLOBULIN ANTIBODY THYROGLOBULIN ANTIBODY Lab Routine Abnormal thyroid stimulating hormone (TSH) level Hyperthyroidism Expected: 03/12/2024, Expires: 03/12/2025 [facility] Comment on above: Expected: 03/12/2024, Expires: Start: 03-12-2024 End: 03-12-2025 THYROID PEROXIDASE ANTIBODIES THYROID PEROXIDASE ANTIBODIES Lab Routine Abnormal thyroid stimulating hormone (TSH) level Hyperthyroidism Expected: 03/12/2024, Expires: 03/12/2025 [facility] Comment on above: Expected: 03/12/2024, Expires: Start: 03-12-2024 End: 03-12-2025 THYROID-STIMULATING IMMUNOGLOBULIN THYROID-STIMULATING IMMUNOGLOBULIN Lab Routine Abnormal thyroid stimulating hormone (TSH) level Hyperthyroidism Expected: 03/12/2024 (Approximate), Expires: 03/12/2025 [facility] Comment on above: Expected: 03/12/2024 (Approximate), Expi res: 03/12/2025 Start: 03-12-2024 End: 03-12-2025 Thyrotropin [Units/volume] in Serum or Plasma TSH Lab Routine Abnormal thyroid stimulating hormone (TSH) level Hyperthyroidism Expected: 03/12/2024, Expires: 03/12/2025 [facility] Comment on above: Expected: 03/12/2024, Expires: Start: 03-12-2024 End: 03-12-2025 THYROTROPIN RECEPTOR ANTIBODY THYROTROPIN RECEPTOR ANTIBODY Lab Routine Abnormal thyroid stimulating hormone (TSH) level Hyperthyroidism Expected: 03/12/2024 (Approximate), Expires: 03/12/2025 [facility] Comment on above: Expected: 03/12/2024 (Approximate), Expi res: 03/12/2025 Start: 03-12-2024 End: 03-12-2025 Thyroxine (T4) free [Mass/volume] in Serum or Plasma T4 FREE Lab Routine Abnormal thyroid stimulating hormone (TSH) level Hyperthyroidism Expected: 03/12/2024, Expires: 03/12/2025 [facility] Comment on above: Expected: 03/12/2024, Expires: Start: 03-12-2024 End: 03-12-2025 Triiodothyronine (T3) Free [Mass/volume] in Serum or Plasma T3 FREE Lab Routine Abnormal thyroid stimulating hormone (TSH) level Hyperthyroidism Expected: 03/12/2024, Expires: 03/12/2025 [facility] Comment on above: Expected: 03/12/2024, Expires: Start: 03-12-2024 End: 03-12-2025 US Thyroid gland US THYROID Imaging Routine Abnormal thyroid stimulating hormone (TSH) level Dysphagia, unspecified type Hyperthyroidism Expected: 03/12/2024, Expires: 03/12/2025 [facility] Comment on above: Expected: 03/12/2024, Expires: Start: 03-09-2024 Glaucoma screening EYE EXAM [facility] Start: 03-01-2024 End: 03-01-2024 Patient encounter procedure 03/01/2024 11:00 AM EDT Office Visit [facility] [address] [place] [address] Delilah Calderon DO [address] [place] [address] [facility] Start: 02-15-2024 Lipid panel LIPIDS [facility] Start: 02-15-2024 Potassium [Moles/volume] in Serum or Plasma POTASSIUM [facility] Start: 02-15-2024 Screening for malignant neoplasm of lung LUNG CANCER SCREENING [facility] Start: 02-04-2024 Screening for malignant neoplasm of colon [facility] Start: 01-28-2024 Hemoglobin A1c measurement [facility] Start: 2024 End: 2024 Patient encounter procedure 2024 3:50 PM EDT Office Visit [facility] [address] [facility] [place] [address] Delilah Calderon DO [address] [place] [address] Chelsea Jenkins MD [address] [place] [address] [facility] Start: 01-23-2024 End: 01-23-2024 Patient encounter procedure 01/23/2024 1:00 PM EDT Office Visit [facility] [address] [place] [address] Fernie Paredes DO [address] [place] [address] [facility] Start: 01-16-2024 Hemoglobin A1c measurement HBA1C TEST [facility] Start: 01-08-2024 Mammography [facility] Start: 01-08-2024 Screening for malignant neoplasm of breast MAMMOGRAM [facility] Start: 01-06-2024 End: 01-06-2024 Patient encounter procedure [facility] Start: 11-24-2023 End: 11-24-2023 Admission to same day surgery center 11/24/2023 10:00 AM EST - 11/24/2023 11:00 AM EST Surgery [facility] Cardiovascular Lab [address] [place] [address] Kandice Christie MD [address] [place] [address] Left Atrial Appendage closure [facility] Comment on above: Left Atrial Appendage closure Start: 11-24-2023 Subsequent hospital visit by physician 11/24/2023 10:00 AM EST Hospital Encounter [facility] Procedural Care Unit [address] [place] [address] Kandice Christie MD [address] [place] [address] [facility] Start: 11-22-2023 Diabetic foot examination DIABETIC FOOT EXAM [facility] Start: 11-22-2023 Lipid panel LIPIDS [facility] Start: 11-22-2023 Potassium [Moles/volume] in Serum or Plasma POTASSIUM [facility] Start: 11-22-2023 Screening for malignant neoplasm of lung LUNG CANCER SCREENING [facility] Start: 11-22-2023 Urine screening for protein URINE MICROALBUMIN TEST [facility] Start: 11-17-2023 End: 11-17-2023 Patient encounter procedure 11/17/2023 10:00 AM EST Appointment [facility] CT Scan [address] [place] [address] Kandice Christie MD [address] [place] [address] [facility] CT Scan Start: 11-05-2023 Glaucoma screening EYE EXAM [facility] Start: 11-02-2023 End: 11-02-2023 Patient encounter procedure 11/02/2023 10:30 AM EST Office Visit [facility] Infectious Disease [address] [place] [address] Monse Shipley MD [address] [place] [address] [facility] Start: 10-31-2023 End: 10-31-2024 Complete blood count with white cell differential, automated CBC, EDIF, PLATELET Lab Routine Type 2 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 disease, without long-term current use of insulin B12 deficiency Hyperlipidemia LDL goal <70 Hypoproteinemia Hypomagnesemia Anemia, unspecified type Stage 3a chronic kidney disease Expected: 10/31/2023, Expires: 10/31/2024 [facility] Comment on above: Expected: 10/31/2023, Expires: Start: 10-31-2023 End: 10-31-2024 Comprehensive metabolic 2000 panel - Serum or Plasma COMPREHENSIVE METABOLIC PANEL Lab Routine Type 2 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 disease, without long-term current use of insulin Hyperlipidemia LDL goal <70 Hypoproteinemia Hypomagnesemia Stage 3a chronic kidney disease Expected: 10/31/2023, Expires: 10/31/2024 [facility] Comment on above: Expected: 10/31/2023, Expires: Start: 10-31-2023 End: 10-31-2024 Cyanocobalamin vitamin b-12 VITAMIN B12 Lab Routine B12 deficiency Anemia, unspecified type Expected: 10/31/2023, Expires: 10/31/2024 [facility] Comment on above: Expected: 10/31/2023, Expires: Start: 10-31-2023 End: 10-30-2024 Ferritin [Mass/volume] in Serum or Plasma FERRITIN Lab Routine Anemia, unspecified type Expected: 10/31/2023, Expires: 10/30/2024 [facility] Comment on above: Expected: 10/31/2023, Expires: Start: 10-31-2023 End: 10-31-2024 Folate [Mass/volume] in Serum or Plasma FOLATE, SERUM Lab Routine B12 deficiency Anemia, unspecified type Expected: 10/31/2023, Expires: 10/31/2024 [facility] Comment on above: Expected: 10/31/2023, Expires: Start: 10-31-2023 End: 10-31-2024 Hemoglobin A1c/Hemoglobin.total in Blood HEMOGLOBIN A1C Lab Routine Type 2 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 disease, without long-term current use of insulin Expected: 10/31/2023, Expires: 10/31/2024 [facility] Comment on above: Expected: 10/31/2023, Expires: Start: 10-31-2023 End: 10-31-2024 IRON/IRON BINDING/TRANSFERRIN IRON/IRON BINDING/TRANSFERRIN Lab Routine Anemia, unspecified type Expected: 10/31/2023, Expires: 10/31/2024 [facility] Comment on above: Expected: 10/31/2023, Expires: Start: 10-31-2023 End: 10-31-2024 LIPID PANEL W CALCULATED LDL LIPID PANEL W CALCULATED LDL Lab Routine Type 2 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 disease, without long-term current use of insulin Hyperlipidemia LDL goal <70 Hypoproteinemia Hypomagnesemia Stage 3a chronic kidney disease Expected: 10/31/2023, Expires: 10/31/2024 [facility] Comment on above: Expected: 10/31/2023, Expires: Start: 10-31-2023 End: 10-31-2024 Magnesium [Mass/volume] in Serum or Plasma MAGNESIUM Lab Routine Type 2 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 disease, without long-term current use of insulin Hypomagnesemia Stage 3a chronic kidney disease Expected: 10/31/2023, Expires: 10/31/2024 [facility] Comment on above: Expected: 10/31/2023, Expires: Start: 10-31-2023 End: 10-31-2024 MICROALBUMIN/CREATININE RATIO MICROALBUMIN/CREATININE RATIO Fluids Routine Type 2 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 disease, without long-term current use of insulin Stage 3a chronic kidney disease Expected: 10/31/2023, Expires: 10/31/2024 [facility] Comment on above: Expected: 10/31/2023, Expires: Start: 10-31-2023 End: 10-31-2024 PTH INTACT PTH INTACT Lab Routine Type 2 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 disease, without long-term current use of insulin Stage 3a chronic kidney disease Expected: 10/31/2023, Expires: 10/31/2024 [facility] Comment on above: Expected: 10/31/2023, Expires: Start: 10-31-2023 End: 10-31-2024 Thyrotropin [Units/volume] in Serum or Plasma TSH Lab Routine Type 2 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 disease, without long-term current use of insulin Hyperlipidemia LDL goal <70 Hypoproteinemia Hypomagnesemia Stage 3a chronic kidney disease Expected: 10/31/2023, Expires: 10/31/2024 [facility] Comment on above: Expected: 10/31/2023, Expires: Start: 10-31-2023 End: 10-31-2024 Urate [Mass/volume] in Serum or Plasma URIC ACID Lab Routine Type 2 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 disease, without long-term current use of insulin Stage 3a chronic kidney disease Expected: 10/31/2023, Expires: 10/31/2024 [facility] Comment on above: Expected: 10/31/2023, Expires: Start: 10-31-2023 End: 10-31-2024 URINE PROTEIN/CREA RATIO, RANDOM URINE PROTEIN/CREA RATIO, RANDOM Fluids Routine Type 2 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 disease, without long-term current use of insulin Stage 3a chronic kidney disease Expected: 10/31/2023, Expires: 10/31/2024 [facility] Comment on above: Expected: 10/31/2023, Expires: Start: 10-31-2023 End: 10-31-2024 VITAMIN D (25-HYDROXY,TOTAL) VITAMIN D (25-HYDROXY,TOTAL) Lab Routine Type 2 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 disease, without long-term current use of insulin Stage 3a chronic kidney disease Expected: 10/31/2023, Expires: 10/31/2024 [facility] Comment on above: Expected: 10/31/2023, Expires: Start: 10-31-2023 End: 10-31-2023 Patient encounter procedure [facility] Start: 10-26-2023 End: 10-26-2024 Complete blood count with white cell differential, automated CBC, EDIF, PLATELET Lab Routine Chronic kidney disease, stage II (mild) Expected: 10/26/2023, Expires: 10/26/2024 [facility] Comment on above: Expected: 10/26/2023, Expires: Start: 10-26-2023 End: 10-26-2024 Magnesium [Mass/volume] in Serum or Plasma MAGNESIUM Lab Routine Chronic kidney disease, stage II (mild) Expected: 10/26/2023, Expires: 10/26/2024 [facility] Comment on above: Expected: 10/26/2023, Expires: Start: 10-26-2023 End: 10-26-2023 Patient encounter procedure 10/26/2023 2:00 PM EST Office Visit [facility] Nephrology 2 [address] [place] [address] Fernando Davison MD [address] [place] [address] [facility] Nephrology 2 Start: 10-26-2023 End: 10-26-2024 RENAL FUNCTION PANEL RENAL FUNCTION PANEL Lab Routine Chronic kidney disease, stage II (mild) Expected: 10/26/2023, Expires: 10/26/2024 [facility] Comment on above: Expected: 10/26/2023, Expires: Start: 10-26-2023 End: 10-26-2024 Sodium [Moles/volume] in Urine SODIUM, RANDOM URINE Fluids Routine Chronic kidney disease, stage II (mild) Expected: 10/26/2023, Expires: 10/26/2024 [facility] Comment on above: Expected: 10/26/2023, Expires: Start: 10-26-2023 End: 10-26-2024 Urinalysis, reagent strip without microscopy URINALYSIS, MACRO Fluids Routine Chronic kidney disease, stage II (mild) Expected: 10/26/2023, Expires: 10/26/2024 [facility] Comment on above: Expected: 10/26/2023, Expires: Start: 10-26-2023 End: 10-26-2024 URINE PROTEIN/CREA RATIO, RANDOM URINE PROTEIN/CREA RATIO, RANDOM Fluids Routine Chronic kidney disease, stage II (mild) Expected: 10/26/2023, Expires: 10/26/2024 [facility] Comment on above: Expected: 10/26/2023, Expires: Start: 10-24-2023 Advance Directive Discussion Advance Directive Discussion [facility] Start: 10-21-2023 Hemoglobin A1c measurement HBA1C TEST [facility] Start: 10-19-2023 End: 10-19-2023 Patient encounter procedure 10/19/2023 10:30 AM EST Appointment Imaging at [facility] [address] [place] [phone] Naty Bhakta MD [address] [place] [phone] Imaging at [facility] Start: 10-06-2023 End: 10-06-2023 Patient encounter procedure 10/06/2023 1:20 PM EST Office Visit [facility] [address] [place] [address] Dawn Uriarte, DPM [address] [place] [address] [facility] Start: 10-05-2023 End: 10-05-2023 Patient encounter procedure 10/05/2023 1:00 PM EST Office Visit [facility] Medication Management [address] [address] [facility] Medication [facility] Start: 09-29-2023 Potassium [Moles/volume] in Serum or Plasma POTASSIUM [facility] Start: 09-28-2023 End: 09-28-2023 Patient encounter procedure Division of Hematology & Oncology Start: 09-26-2023 End: 09-26-2023 Patient encounter procedure 09/26/2023 12:30 PM EST Office Visit [facility] Orthopedics & Sports Medicine [address] [facility] [address] Garry Stephens MD [address] [facility] [place] [address] [place] [address] [facility] Start: 09-21-2023 End: 09-21-2023 Patient encounter procedure 09/21/2023 11:20 AM EST Office Visit Division of Hematology & Oncology at [facility] [address] [place] [address] Naty Bhakta MD [address] [place] [address] Division of Hematology & Oncology at [facility] Start: 09-20-2023 End: 09-20-2023 Patient encounter procedure 09/20/2023 1:00 PM EST Office Visit [facility] [address] [place] [address] Dawn Uriarte DPM [address] [place] [address] [facility] Start: 08-29-2023 End: 08-29-2023 Patient encounter procedure [facility] Start: 08-26-2023 ambulatory Ambulatory Facility:[facility] Start: 08-25-2023 ambulatory Ambulatory Facility:[facility] Start: 08-25-2023 End: 08-25-2023 Patient encounter procedure 08/25/2023 10:00 AM EDT Office Visit [facility] Infectious Disease [address] [place] [phone] Monse Shipley MD [address] [place] [phone] [facility] Start: 08-23-2023 End: 08-23-2023 Patient encounter procedure 08/23/2023 2:10 PM EDT Office Visit [facility] [address] [place] [address] Dawn Uriarte DPM [address] [place] [address] [facility] Start: 08-23-2023 Iv infusion therapy/prophylaxis /dx 1st to 1 hr THER/PROPH/DIAG IV INF [facility] Start: 08-22-2023 Iv infusion therapy/prophylaxis /dx 1st to 1 hr THER/PROPH/DIAG IV INF [facility] Start: 08-21-2023 Iv infusion therapy/prophylaxis /dx 1st to 1 hr THER/PROPH/DIAG IV INF [facility] Start: 08-20-2023 Glaucoma screening EYE EXAM [facility] Start: 08-20-2023 Screening for malignant neoplasm of lung LUNG CANCER SCREENING [facility] Start: 08-19-2023 Iv infusion therapy/prophylaxis /dx 1st to 1 hr THER/PROPH/DIAG IV INF [facility] Start: 08-18-2023 Iv infusion therapy/prophylaxis /dx 1st to 1 hr THER/PROPH/DIAG IV INF [facility] Start: 08-16-2023 Hemoglobin A1c measurement HBA1C TEST [facility] Start: 08-15-2023 End: 08-15-2023 Patient encounter procedure 08/15/2023 11:30 AM EDT Office Visit [facility] Infectious Disease [address] [place] [address] Monse Shipley MD [address] [place] [address] [facility] Start: 08-15-2023 End: 08-15-2023 Patient encounter procedure 08/15/2023 10:15 AM EDT Office Visit [facility] Infectious Disease [address] [place] [address] Monse Shipley MD [address] [place] [address] [facility] Start: 08-11-2023 End: 09-08-2023 Bacterial culture and sensitivity [facility] Comment on above: Expected: 08/11/2023, Expires: Start: 08-11-2023 Iv infusion therapy/prophylaxis /dx 1st to 1 hr THER/PROPH/DIAG IV INF [facility] Start: 08-11-2023 End: 08-11-2023 Patient encounter procedure 08/11/2023 1:10 PM EDT Office Visit [facility] [address] [address] Dawn Uriarte DPM [address] [place] [address] [facility] Start: 08-10-2023 End: 08-10-2023 Patient encounter procedure 08/10/2023 9:30 AM EDT Office Visit [facility] [address] [phone] Dawn Uriarte DPM [address] [place] [phone] [facility] Start: 08-09-2023 Iv infusion therapy/prophylaxis /dx 1st to 1 hr THER/PROPH/DIAG IV INF [facility] Start: 08-08-2023 End: 08-08-2023 Patient encounter procedure [facility] Start: 08-07-2023 Iv infusion therapy/prophylaxis /dx 1st to 1 hr THER/PROPH/DIAG IV INF [facility] Start: 08-07-2023 End: 08-07-2023 Patient encounter procedure [facility] Start: 08-06-2023 End: 08-06-2023 Patient encounter procedure [facility] Start: 08-05-2023 End: 08-05-2023 [facility] [facility] Start: 08-05-2023 Iv infusion therapy/prophylaxis /dx 1st to 1 hr THER/PROPH/DIAG IV INF [facility] [place] Start: 08-05-2023 End: 08-05-2023 Patient encounter procedure 08/05/2023 11:15 AM EDT Office Visit [facility] Infectious Disease [address] [id number] Monse Shipley MD [address] [id number] [facility] Start: 08-04-2023 End: 08-04-2023 Patient encounter procedure [facility] Start: 08-03-2023 End: 08-03-2023 Patient encounter procedure 08/03/2023 1:30 PM EDT Infusion Visit [facility] [address] [place], [place] [id number] [facility] Start: 08-02-2023 End: 08-02-2023 Patient encounter procedure 08/02/2023 11:30 AM EDT Infusion Visit [facility] [address] [place] [address] [facility] Start: 08-01-2023 End: 08-01-2023 Patient encounter procedure 08/01/2023 8:30 AM EDT Infusion Visit [facility] [address] [facility], [facility] Start: 07-31-2023 End: 07-31-2023 Patient encounter procedure 07/31/2023 8:00 AM EDT Infusion Visit [facility] [address] [facility], [facility] Monse Shipley MD [address] [place] [address] [facility] Start: 07-30-2023 End: 07-30-2023 Patient encounter procedure 07/30/2023 8:15 AM EDT Infusion Visit [facility] [address] [place] [address] Monse Shipley MD [address] [place] [address] [facility] Start: 07-29-2023 End: 07-29-2024 C-reactive protein C REACTIVE PROTEIN Lab Routine Open wound of fourth toe of left foot, sequela Expected: 07/29/2023, Expires: 07/29/2024 [facility] Comment on above: Expected: 07/29/2023, Expires: Start: 07-29-2023 End: 07-29-2024 FUNGITELL ASSAY FUNGITELL ASSAY Lab Routine Open wound of fourth toe of left foot, sequela Expected: 07/29/2023, Expires: 07/29/2024 [facility] Comment on above: Expected: 07/29/2023, Expires: Start: 07-29-2023 End: 07-29-2024 Fungus identified in Unspecified specimen by Culture [facility] Comment on above: Expected: 07/29/2023, Expires: Start: 07-29-2023 End: 07-29-2024 M TUBERCULOSIS BY QUANTIFERON, BLD M TUBERCULOSIS BY QUANTIFERON, BLD Lab Routine Open wound of fourth toe of left foot, sequela Expected: 07/29/2023, Expires: 07/29/2024 [facility] Comment on above: Expected: 07/29/2023, Expires: Start: 07-29-2023 End: 07-29-2024 Mycobacterium sp identified in Unspecified specimen by Organism specific culture [facility] Comment on above: Expected: 07/29/2023, Expires: Start: 07-29-2023 End: 07-29-2024 SEDIMENTATION RATE, AUTOMATED SEDIMENTATION RATE, AUTOMATED Lab Routine Open wound of fourth toe of left foot, sequela Expected: 07/29/2023, Expires: 07/29/2024 [facility] Comment on above: Expected: 07/29/2023, Expires: Start: 07-29-2023 End: 07-29-2023 Patient encounter procedure [facility] Start: 07-28-2023 End: 07-28-2024 MR Foot - left WO contrast MRI FOOT LEFT WITHOUT CONTRAST Imaging STAT Cellulitis and abscess of toe of left foot Skin ulcer of fourth toe of left foot with fat layer exposed Expected: 07/28/2023, Expires: 07/28/2024 [facility] Comment on above: Expected: 07/28/2023, Expires: Start: 07-28-2023 End: 07-28-2023 Patient encounter procedure 07/28/2023 10:00 AM EDT Office Visit [facility] [address] [place] [address] Dawn Uriarte DPM [address] [place] [address] [facility] Start: 07-27-2023 End: 07-27-2023 Patient encounter procedure 07/27/2023 8:00 AM EDT Office Visit [facility] Infectious Disease [address] [place] [address] Monse Shipley MD [address] [place] [address] [facility] Start: 07-22-2023 End: 07-22-2024 C-reactive protein C REACTIVE PROTEIN Lab Routine Cellulitis of other specified site Recurrent infections Expected: 07/22/2023, Expires: 07/22/2024 [facility] Comment on above: Expected: 07/22/2023, Expires: Start: 07-22-2023 End: 07-22-2024 Complete blood count with white cell differential, automated CBC, EDIF, PLATELET Lab Routine Cellulitis of other specified site Recurrent infections Expected: 07/22/2023, Expires: 07/22/2024 [facility] Comment on above: Expected: 07/22/2023, Expires: Start: 07-22-2023 End: 07-22-2024 Comprehensive metabolic 2000 panel - Serum or Plasma COMPREHENSIVE METABOLIC PANEL Lab Routine Cellulitis of other specified site Recurrent infections Expected: 07/22/2023, Expires: 07/22/2024 [facility] Comment on above: Expected: 07/22/2023, Expires: Start: 07-22-2023 End: 07-22-2024 M TUBERCULOSIS BY QUANTIFERON, BLD M TUBERCULOSIS BY QUANTIFERON, BLD Lab Routine Cellulitis of other specified site Recurrent infections Expected: 07/22/2023, Expires: 07/22/2024 [facility] Comment on above: Expected: 07/22/2023, Expires: Start: 07-22-2023 End: 07-22-2024 SEDIMENTATION RATE, AUTOMATED SEDIMENTATION RATE, AUTOMATED Lab Routine Cellulitis of other specified site Recurrent infections Expected: 07/22/2023, Expires: 07/22/2024 [facility] Comment on above: Expected: 07/22/2023, Expires: Start: 07-22-2023 End: 07-22-2023 Patient encounter procedure 07/22/2023 8:15 AM EDT Office Visit [facility] Infectious Disease [address] [place] [address] Monse Shipley MD [address] [place], [place] [id number] [facility] Start: 07-21-2023 End: 08-18-2023 Bacterial culture and sensitivity [facility] Comment on above: Expected: 07/21/2023, Expires: 3 Start: 07-21-2023 End: 08-18-2023 XR Foot - left 3 Views XR FOOT LEFT 3 VIEWS Imaging Routine Cellulitis and abscess of toe of left foot Expected: 07/21/2023, Expires: 08/18/2023 [facility] Comment on above: Expected: 07/21/2023, Expires: 3 Start: 07-18-2023 AMANDA, Provider: Gregory Soto, Status: Pen, Time: 11:15 AM AMANDA, Provider: Gregory Soto, Status: Pen, Time: 11:15 AM [facility] Work Phone: Start: 07-18-2023 End: 07-18-2023 Patient encounter procedure 07/18/2023 10:10 AM EDT Office Visit [facility] [address] [place], [place] [phone] Dawn Uriarte DPM [address] [place], [place] [phone] [facility] Start: 07-18-2023 End: 07-18-2023 Patient encounter procedure 07/18/2023 8:45 AM EDT Office Visit [facility] Infectious Disease [address] [place], [place] [phone] Monse Shipley MD [address] [place], [place] [phone] [facility] Start: 07-14-2023 [email or web address], Provider: Cuca Cervantes, Status: Pen, Time: 10:45 AM PTFUADULT4, Provider: Cuca Cervantes, Status: Pen, Time: 10:45 AM [facility] Work Phone: Start: 07-13-2023 End: 07-13-2024 C-reactive protein C REACTIVE PROTEIN Lab Routine Cellulitis of other specified site Expected: 07/13/2023, Expires: 07/13/2024 [facility] Comment on above: Expected: 07/13/2023, Expires: Start: 07-13-2023 End: 07-13-2024 Hemoglobin A1c/Hemoglobin.total in Blood HEMOGLOBIN A1C Lab Routine Cellulitis of other specified site Elevated glucose Expected: 07/13/2023, Expires: 07/13/2024 [facility] Comment on above: Expected: 07/13/2023, Expires: Start: 07-13-2023 End: 07-13-2024 SEDIMENTATION RATE, AUTOMATED SEDIMENTATION RATE, AUTOMATED Lab Routine Cellulitis of other specified site Expected: 07/13/2023, Expires: 07/13/2024 [facility] Comment on above: Expected: 07/13/2023, Expires: Start: 07-13-2023 End: 07-13-2023 Patient encounter procedure 07/13/2023 11:15 AM EDT Office Visit [facility] Infectious Disease [address] [place] [address] Monse Shipley MD [address] [place] [address] [facility] Start: 07-12-2023 [email or web address], Provider: Cuca Cervantes, Status: Maximus, Time: 10:45 AM [email or web address], Provider: Cuca Cervantes, Status: Maximus, Time: 10:45 AM [facility] Work Phone: Start: 07-08-2023 End: 07-08-2023 Admission to same day surgery center 07/08/2023 10:00 AM EDT - 07/08/2023 10:40 AM EDT Surgery [facility] Periop [address] [place] [phone] Dawn Uriarte DPM [address] [phone] I&D BURSA FOOT - 4th toe [facility] Comment on above: I&D BURSA FOOT - 4th toe Start: 07-08-2023 Subsequent hospital visit by physician [facility] Comment on above: Abscess of fourth toe of left foot Start: 07-08-2023 End: 07-08-2023 I&d below fascia foot 1 bursal space [facility] Start: 07-07-2023 AQUATICFU4, Provider: Laya Gomez, Status: Pen, Time: 10:45 AM AQUATICFU4, Provider: Laya Gomez, Status: Pen, Time: 10:45 AM [facility] Work [facility]: Start: 07-05-2023 AQUATICFU4, Provider: Laya Gomez, Status: Pen, Time: 11:30 AM AQUATICFU4, Provider: Laya Gomez, Status: Pen, Time: 11:30 AM [facility] Work [facility]: Start: 07-04-2023 End: 07-04-2023 Patient encounter procedure 07/04/2023 9:45 AM EDT Office Visit [facility] Infectious Disease [address] [phone] Monse Shipley MD [address] [phone] [facility] Start: 07-04-2023 End: 07-04-2023 Admission to establishment 07/04/2023 9:00 AM EDT Pre-Operative Nurse Assessment [facility] Pre Admission [address] [place] [id number] [facility] Start: 07-01-2023 AQUATICFU4, Provider: Sheyla Dixon, Status: Pen, Time: 2:00 PM AQUATICFU4, Provider: Sheyla Dixon, Status: Pen, Time: 2:00 PM [facility] Work Phone: Start: 06-30-2023 AQUATICFU4, Provider: Laya Gomez, Status: Pen, Time: 11:30 AM AQUATICFU4, Provider: Laya Gomez, Status: Maximus, Time: 11:30 AM [facility] Work Phone: Start: 06-29-2023 End: 06-29-2023 Patient encounter procedure [facility] Start: 06-28-2023 End: 07-28-2023 CBC,PLATELETS CBC,PLATELETS Lab Routine Cellulitis and abscess of toe of left foot Expected: 06/28/2023, Expires: 07/28/2023 [facility] Comment on above: Expected: 06/28/2023, Expires: Start: 06-28-2023 End: 07-28-2023 Comprehensive metabolic 2000 panel - Serum or Plasma COMPREHENSIVE METABOLIC PANEL Lab Routine Cellulitis and abscess of toe of left foot Expected: 06/28/2023, Expires: 07/28/2023 [facility] Comment on above: Expected: 06/28/2023, Expires: Start: 06-28-2023 End: 06-28-2024 MR Foot - left WO contrast MRI FOOT LEFT WITHOUT CONTRAST Imaging STAT Cellulitis and abscess of toe of left foot Expected: 06/28/2023 (Approximate), Expires: 06/28/2024 [facility] Comment on above: Expected: 06/28/2023 (Approximate), Expi res: 06/28/2024 Start: 06-28-2023 End: 06-28-2023 Patient encounter procedure 06/28/2023 2:00 PM EDT Office Visit [facility] [address] [place] [address] Dawn Uriarte, DPArtem [address] [place] [address] [facility] Start: 06-24-2023 Influenza vaccination [facility] Start: 06-21-2023 End: 06-21-2023 Patient encounter procedure 06/21/2023 8:00 AM EDT Office Visit [facility]ics & Sports Medicine [address] [facility] [place] [address] [place] [address] Garry Stephens MD [address] [facility] [address] [place] [address] [place] [address] [facility] Start: 06-20-2023 End: 06-20-2023 Patient encounter procedure 06/20/2023 1:00 PM EDT Appointment [facility] MRI [address] [place] [address] Isreal Sigala MD [address] Joshua [address] [place] [id number] [facility] MRI Start: 06-14-2023 End: 06-14-2023 Patient encounter procedure 06/14/2023 9:30 AM EDT Office Visit [facility] [address] [place] [address] Dawn Uriarte, DPM [address] [place] [address] [facility] Start: 05-26-2023 Diabetic foot examination DIABETIC FOOT EXAM [facility] Start: 05-26-2023 Lipid panel LIPIDS [facility] Start: 05-26-2023 LIPIDS LIPIDS [facility] Start: 05-26-2023 Microalbumin measurement, urine, quantitative URINE MICROALBUMIN TEST [facility] Start: 05-26-2023 Potassium [Moles/volume] in Serum or Plasma POTASSIUM [facility] Start: 05-26-2023 Screening for malignant neoplasm of lung LUNG CANCER SCREENING [facility] Start: 05-26-2023 Urine screening for protein URINE MICROALBUMIN TEST [facility] Start: 05-22-2023 Hemoglobin A1c measurement HBA1C TEST [facility] Start: 05-17-2023 End: 05-17-2023 Patient encounter procedure 05/17/2023 10:50 AM EDT Office Visit [facility] [address] [place] [address] Dawn Uriarte, DPM [address] [place] [address] [facility] Start: 05-16-2023 End: 05-16-2023 Admission to same day surgery center Dyan Muhammad Comment on above: ARTHROPLASTY KNEE TOTAL - Left ARTHROPLASTY KNEE TO MARGE Start: 05-16-2023 End: 05-16-2023 Arthrp kne condyle&platu medial&lat compartments ARTHROPLASTY KNEE TOTAL Primary osteoarthritis of left knee 05/16/2023 6:45 AM EDT [facility] Start: 05-16-2023 Subsequent hospital visit by physician Dyan Muhammad Comment on above: Primary osteoarthritis of left knee Start: 05-13-2023 End: 05-13-2023 Patient encounter procedure [facility] Start: 05-10-2023 End: 05-10-2023 Patient encounter procedure 05/10/2023 10:50 AM EDT Office Visit [facility] [address] [place] [address] Dawn Uriarte, DPM [address] [place] [address] [facility] Start: 05-05-2023 End: 05-05-2024 MR Foot - left WO contrast MRI FOOT LEFT WITHOUT CONTRAST Imaging Routine Cellulitis and abscess of toe of left foot Expected: 05/05/2023, Expires: 05/05/2024 [facility] Comment on above: Expected: 05/05/2023, Expires: Start: 05-05-2023 End: 05-05-2023 Patient encounter procedure 05/05/2023 1:00 PM EDT Office Visit [facility] [address] [place] [address] Dawn Uriarte, DPM [address] [place] [address] [facility] Start: 05-03-2023 End: 05-03-2023 Patient encounter procedure 05/03/2023 Office Visit Cardiovascular Medicine Delilah Calderon DO [address] [facility] [place] [address] [facility] Start: 04-29-2023 End: 04-29-2023 Patient encounter procedure 04/29/2023 4:20 PM EDT Office Visit [facility] Orthopedics [address] [facility] [place] [address] Gonsalo Blackwood MD [address] [facility] [place] [address] [facility] Start: 04-27-2023 End: 04-27-2023 Patient encounter procedure 04/27/2023 3:30 PM EDT Office Visit [facility] Nephrology 2 [address] [place] [address] Fernando Davison MD [address] [place] [address], [place] [address] [facility]phrology 2 Start: 04-27-2023 End: 04-27-2024 Complete blood count with white cell differential, automated CBC, EDIF, PLATELET Lab Routine Stage 3a chronic kidney disease Expected: 04/27/2023, Expires: 04/27/2024 [facility] Comment on above: Expected: 04/27/2023, Expires: 4 Start: 04-27-2023 End: 04-27-2024 Hepatic function 2000 panel - Serum or Plasma HEPATIC FUNCTION PANEL Lab Routine Stage 3a chronic kidney disease Expected: 04/27/2023, Expires: 04/27/2024 [facility] Comment on above: Expected: 04/27/2023, Expires: 4 Start: 04-27-2023 End: 04-27-2024 Magnesium [Mass/volume] in Serum or Plasma MAGNESIUM Lab Routine Stage 3a chronic kidney disease Expected: 04/27/2023, Expires: 04/27/2024 [facility] Comment on above: Expected: 04/27/2023, Expires: Start: 04-27-2023 End: 04-27-2024 RENAL FUNCTION PANEL RENAL FUNCTION PANEL Lab Routine Stage 3a chronic kidney disease Expected: 04/27/2023, Expires: 04/27/2024 [facility] Comment on above: Expected: 04/27/2023, Expires: Start: 04-27-2023 End: 04-27-2024 Sodium [Moles/volume] in Urine SODIUM, RANDOM URINE Fluids Routine Stage 3a chronic kidney disease Expected: 04/27/2023, Expires: 04/27/2024 [facility] Comment on above: Expected: 04/27/2023, Expires: Start: 04-27-2023 End: 04-27-2024 Urinalysis, reagent strip without microscopy URINALYSIS, MACRO Fluids Routine Stage 3a chronic kidney disease Expected: 04/27/2023, Expires: 04/27/2024 [facility] Comment on above: Expected: 04/27/2023, Expires: Start: 04-27-2023 End: 04-27-2024 URINE PROTEIN/CREA RATIO, RANDOM URINE PROTEIN/CREA RATIO, RANDOM Fluids Routine Stage 3a chronic kidney disease Expected: 04/27/2023, Expires: 04/27/2024 [facility] Comment on above: Expected: 04/27/2023, Expires: Start: 04-27-2023 End: 04-27-2024 US Abdomen RUQ US ABDOMEN RUQ/LIVER/GB Imaging Routine Stage 3a chronic kidney disease Expected: 04/27/2023, Expires: 04/27/2024 [facility] Comment on above: Expected: 04/27/2023, Expires: Start: 04-21-2023 End: 04-21-2023 ambulatory 04/21/2023 Pre-Operative Nurse Assessment Internal Medicine [facility] Start: 03-23-2023 Diabetic foot examination DIABETIC FOOT EXAM [facility] Start: 03-23-2023 Screening for malignant neoplasm of lung LUNG CANCER SCREENING [facility] Start: 03-17-2023 End: 03-17-2023 Patient encounter procedure 03/17/2023 Office Visit Nephrology Fernando Davison MD [address] [place] [address] [facility] Nephrology 2 Start: 02-21-2023 End: 02-21-2023 Patient encounter procedure 02/21/2023 Office Visit Cardiovascular Medicine Delilah Calderon, DO [address] [place] [address] [facility] Start: 02-14-2023 End: 02-15-2024 Bone density scan BONE DENSITY AXIAL (HIP, PELVIS, SPINE) Imaging Routine Asymptomatic postmenopausal state Expected: 02/14/2023, Expires: 02/15/2024 [facility] Comment on above: Expected: 02/14/2023, Expires: Start: 02-14-2023 End: 02-15-2024 Magnesium [Mass/volume] in Serum or Plasma MAGNESIUM Lab Routine Type 2 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 disease, without long-term current use of insulin Stage 3a chronic kidney disease Expected: 02/14/2023, Expires: 02/15/2024 [facility] Comment on above: Expected: 02/14/2023, Expires: Start: 02-14-2023 End: 02-14-2023 Patient encounter procedure 02/14/2023 Office Visit Family Medicine Fernie Paredes, DO [address] [address] [facility] Start: 02-14-2023 End: 02-15-2024 PTH INTACT PTH INTACT Lab Routine Type 2 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 disease, without long-term current use of insulin Stage 3a chronic kidney disease Expected: 02/14/2023, Expires: 02/15/2024 [facility] Comment on above: Expected: 02/14/2023, Expires: Start: 02-13-2023 DEXA SCAN DEXA SCAN [facility] Start: 02-13-2023 Screening for osteoporosis DEXA SCAN [facility] Start: 02-03-2023 End: 02-03-2023 Patient encounter procedure 02/03/2023 Office Visit 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ANKS 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, 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 [id number] [place] [address] [facility] 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ANKS Start: 02-02-2023 History and physical examination, annual for health maintenance Wellness Visit [facility] Start: 02-02-2023 Microscopic observation [Identifier] in Cervix by Cyto stain PAP SMEAR [facility] Start: 02-02-2023 Screening for malignant neoplasm of cervix PAP SMEAR [facility] Start: 2023 ADVANCE DIRECTIVE DISCUSSION ADVANCE DIRECTIVE DISCUSSION [facility] Start: 2023 BONE DENSITY BONE DENSITY [facility] Start: 2023 Bone Density Screening Bone Density Screening [facility] Start: 2023 Fall risk assessment Falls Risk Assessment [facility] Start: 01-22-2023 Medicare Annual Wellness Visit Medicare Annual Wellness Visit [facility] Start: 01-17-2023 COVID-19 VACCINE (8 - Pfizer risk series) COVID-19 VACCINE (8 - Pfizer risk series) [facility] Start: 01-17-2023 End: 01-17-2023 Patient encounter procedure 01/17/2023 Office Visit Family Medicine Fernie Paredes, DO [address] [address] [facility] Start: 01-13-2023 End: 01-13-2023 ambulatory 01/13/2023 Pre-Operative Nurse Assessment Internal Medicine [facility] Pre [facility] Start: 01-06-2023 Mammography MAMMOGRAM [facility] Start: 01-06-2023 Screening for malignant neoplasm of breast MAMMOGRAM [facility] Start: 12-30-2022 Diabetic foot examination DIABETIC FOOT EXAM [facility] Start: 12-30-2022 LIPIDS LIPIDS [facility] Start: 12-30-2022 Microalbumin measurement, urine, quantitative URINE MICROALBUMIN TEST [facility] Start: 12-30-2022 Potassium [Moles/volume] in Serum or Plasma POTASSIUM [facility] Start: 12-30-2022 Screening for malignant neoplasm of lung LUNG CANCER SCREENING [facility] Start: 12-16-2022 End: 12-16-2022 Fluor needle/cath spine/paraspinal [...] Start: 11-26-2022 Hemoglobin A1c measurement HBA1C TEST [facility] Start: 11-23-2022 End: 11-23-2022 Patient encounter procedure 11/23/2022 Office Visit Cardiovascular Medicine Delilah Calderon DO [address] [place] [address] [facility] Start: 11-22-2022 End: 11-22-2022 Patient encounter procedure 11/22/2022 Office Visit Family Medicine Fernie Paredes DO [address] [place] [address] [facility] Start: 11-17-2022 End: 11-17-2022 Patient encounter procedure 11/17/2022 Office Visit Orthopaedics Gonsalo Blackwood MD [address] [place] [address] [facility] Start: 10-06-2022 End: 10-06-2022 Patient encounter procedure [facility] Start: 09-29-2022 End: 09-29-2022 Clinical Support Encounter 09/29/2022 Clinical Support Encounter Hematology Naty Bhakta MD [address] [place] [id number] Arrived Division of Hematology & Oncology Comment on above: Arrived Start: 09-02-2022 End: 09-02-2022 Patient encounter procedure 09/02/2022 Office Visit Orthopaedics Gonsalo Blackwood MD [address] [place] [address] [facility] Start: 09-02-2022 PTRECHADUL, Provider: Jaswinder Schwartz, Status: Pen, Time: 10:00 AM PTRECHADUL, Provider: Jaswinder Schwartz, Status: Pen, Time: 10:00 AM [facility] Work Phone: Start: 08-31-2022 PTFUADULT4, Provider: Jaswinder Schwartz, Status: Pen, Time: 10:00 AM PTFUADULT4, Provider: Jaswinder Schwartz, Status: Pen, Time: 10:00 AM [facility] Work Phone: Start: 08-31-2022 End: 08-31-2022 Admission to same day surgery center 08/31/2022 Surgery Multispecialty Dariusz Rangel MD [address] [place] [id number] COLPORRHAPHY ANTERIOR REPAIR CYSTOCELE MAYRA GAL Periop [...] Dariusz Rangel MD [address] [place] [address] Mixed stress and urge urinary incontinence MAYRA GAL Periop Comment on above: Mixed stress and urge urinary incontinen ce Start: 08-30-2022 PTFUADULT4, Provider: Jaswinder Schwartz, Status: Pen, Time: 10:30 AM PTFUADULT4, Provider: Jaswinder Schwartz, Status: Pen, Time: 10:30 AM [facility] Work Phone: Start: 08-27-2022 AQUATICFU4, Provider: Silvia Mcneill, Status: Pen, Time: 8:30 AM AQUATICFU4, Provider: Silvia Mcneill, Status: Pen, Time: 8:30 AM [facility] Work Phone: Start: 08-26-2022 AQUATICFU4, Provider: Laya Gomez, Status: Pen, Time: 10:00 AM AQUATICFU4, Provider: Laya Gomez, Status: Pen, Time: 10:00 AM [facility] Work Phone: Start: 08-24-2022 AQUATICFU4, Provider: Laya Gomez, Status: Pen, Time: 10:00 AM AQUATICFU4, Provider: Laya Gomez, Status: Pen, Time: 10:00 AM [facility] Work Phone: Start: 08-20-2022 End: 08-20-2023 Complete blood count with white cell differential, automated CBC, EDIF, PLATELET Lab Routine 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 disease, without long-term current use of insulin Hyperlipidemia LDL goal <70 Idiopathic chronic gout without tophus, unspecified site B12 deficiency Fatty liver Folate deficiency Anemia, unspecified type Expected: 08/20/2022, Expires: 08/20/2023 [facility] Comment on above: Expected: 08/20/2022, Expires: 3 Start: 08-20-2022 End: 08-20-2023 Comprehensive metabolic 2000 panel - Serum or Plasma COMPREHENSIVE METABOLIC PANEL Lab Routine 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 disease, without long-term current use of insulin Hyperlipidemia LDL goal <70 Idiopathic chronic gout without tophus, unspecified site Fatty liver Expected: 08/20/2022, Expires: 08/20/2023 [facility] Comment on above: Expected: 08/20/2022, Expires: 3 Start: 08-20-2022 End: 08-20-2023 Cyanocobalamin vitamin b-12 VITAMIN B12 Lab Routine B12 deficiency Folate deficiency Anemia, unspecified type Expected: 08/20/2022, Expires: 08/20/2023 [facility] Comment on above: Expected: 08/20/2022, Expires: 3 Start: 08-20-2022 End: 08-20-2023 Ferritin [Mass/volume] in Serum or Plasma FERRITIN Lab Routine Anemia, unspecified type Expected: 08/20/2022, Expires: 08/20/2023 [facility] Comment on above: Expected: 08/20/2022, Expires: 3 Start: 08-20-2022 End: 08-20-2023 Folate [Mass/volume] in Serum or Plasma FOLATE, SERUM Lab Routine B12 deficiency Folate deficiency Anemia, unspecified type Expected: 08/20/2022, Expires: 08/20/2023 [facility] Comment on above: Expected: 08/20/2022, Expires: 3 Start: 08-20-2022 End: 08-20-2023 Hemoglobin A1c/Hemoglobin.total in Blood HEMOGLOBIN A1C Lab Routine 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 disease, without long-term current use of insulin Expected: 08/20/2022, Expires: 08/20/2023 [facility] Comment on above: Expected: 08/20/2022, Expires: 3 Start: 08-20-2022 End: 08-20-2023 IRON/IRON BINDING/TRANSFERRIN IRON/IRON BINDING/TRANSFERRIN Lab Routine Anemia, unspecified type Expected: 08/20/2022, Expires: 08/20/2023 [facility] Comment on above: Expected: 08/20/2022, Expires: 3 Start: 08-20-2022 End: 08-20-2023 LIPID PANEL W CALCULATED LDL LIPID PANEL W CALCULATED LDL Lab Routine 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 disease, without long-term current use of insulin Hyperlipidemia LDL goal <70 Idiopathic chronic gout without tophus, unspecified site Fatty liver Expected: 08/20/2022, Expires: 08/20/2023 [facility] Comment on above: Expected: 08/20/2022, Expires: 3 Start: 08-20-2022 End: 08-20-2023 Thyrotropin [Units/volume] in Serum or Plasma TSH Lab Routine 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 disease, without long-term current use of insulin Hyperlipidemia LDL goal <70 Idiopathic chronic gout without tophus, unspecified site Fatty liver Expected: 08/20/2022, Expires: 08/20/2023 [facility] Comment on above: Expected: 08/20/2022, Expires: 3 Start: 08-20-2022 End: 08-20-2023 Urate [Mass/volume] in Serum or Plasma URIC ACID Lab Routine 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 disease, without long-term current use of insulin Idiopathic chronic gout without tophus, unspecified site Expected: 08/20/2022, Expires: 08/20/2023 [facility] Comment on above: Expected: 08/20/2022, Expires: 3 Start: 08-20-2022 End: 08-20-2023 VITAMIN D (25-HYDROXY,TOTAL) VITAMIN D (25-HYDROXY,TOTAL) Lab Routine 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 disease, without long-term current use of insulin Vitamin D deficiency Expected: 08/20/2022, Expires: 08/20/2023 [facility] Comment on above: Expected: 08/20/2022, Expires: 3 Start: 08-20-2022 End: 08-20-2022 Patient encounter procedure 08/20/2022 Office Visit Family Medicine Fernie Paredes, DO [address] [place] [address] [facility] Start: 08-20-2022 AQUATICFU4, Provider: Silvia Mcneill, Status: Pen, Time: 10:00 AM AQUATICFU4, Provider: Silvia Mcneill, Status: Pen, Time: 10:00 AM [facility]: Start: 08-17-2022 AQUATICFU4, Provider: Laya Gomez, Status: Pen, Time: 10:00 AM AQUATICFU4, Provider: Laya Gomez, Status: Pen, Time: 10:00 AM [facility] Work Phone: Start: 08-13-2022 AQUATICFU4, Provider: Silvia Mcneill, Status: Pen, Time: 10:00 AM AQUATICFU4, Provider: Silvia Mcneill, Status: Pen, Time: 10:00 AM [facility] Work Phone: Start: 08-11-2022 AQUATICFU4, Provider: Silvia Mcneill, Status: Pen, Time: 10:45 AM AQUATICFU4, Provider: Silvia Mcneill, Status: Pen, Time: 10:45 AM [facility] Work Phone: Start: 08-09-2022 End: 08-09-2022 ambulatory 08/09/2022 Pre-Operative Nurse Assessment Multispecialty [facility] Pre Admission Testing Start: 08-09-2022 End: 08-09-2022 Patient encounter procedure 08/09/2022 Office Visit 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 BLANKS Radha Saleh, 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 [address] [facility] [address] [place] [phone] [facility] 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 BLANKS Start: 08-05-2022 AQUATICFU4, Provider: Laya Gomez, Status: Pen, Time: 12:15 PM AQUATICFU4, Provider: Laya Gomez, Status: Pen, Time: 12:15 PM [facility] Work [facility]: Start: 08-04-2022 Microscopic observation [Identifier] in Cervix by Cyto stain PAP SMEAR [facility] Start: 08-04-2022 End: 08-04-2022 Patient encounter procedure 08/04/2022 Office Visit Hematology Naty Bhakta MD [address] [place] [address] Division of Hematology & Oncology Start: 08-03-2022 AQUATICFU4, Provider: Laya Gomez, Status: Pen, Time: 11:30 AM AQUATICFU4, Provider: Laya Gomez, Status: Pen, Time: 11:30 AM [facility] Work Phone: Start: 07-29-2022 AQUATICFU4, Provider: Laya Gomez, Status: Pen, Time: 11:30 AM AQUATICFU4, Provider: Laya Gomez, Status: Pen, Time: 11:30 AM [facility] Work Phone: Start: 07-08-2022 End: 07-08-2022 Patient encounter procedure 07/08/2022 Office Visit 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 BLANKS Dariusz Rangel MD [address] [place] [phone] [facility] 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 BLANKS Start: 07-02-2022 Hemoglobin A1c measurement HBA1C TEST [facility] Start: 06-30-2022 Diabetic retinal eye exam EYE EXAM [facility] Start: 06-30-2022 Glaucoma screening EYE EXAM [facility] Start: 06-24-2022 Influenza vaccination [facility] Syste m Start: 06-17-2022 End: 06-17-2022 [...] DO [address] [place] [address] [facility] Start: 06-10-2022 LIPID SCREEN LIPID SCREEN [facility] Start: 06-07-2022 End: 06-07-2022 Patient encounter procedure 06/07/2022 Office Visit 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 BLANKS Dariusz Rangel MD [address] [place] [phone] [facility] 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 BLANKS Start: 05-31-2022 End: 05-31-2022 Patient encounter procedure 05/31/2022 Office Visit Cardiovascular Medicine Delilah Calderon, DO [address] [place] [address] [facility] Start: 05-28-2022 End: 05-28-2022 Patient encounter procedure 05/28/2022 Office Visit 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 BLANKS [facility] 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 BLANKS Start: 05-10-2022 End: 05-10-2022 Patient encounter procedure 05/10/2022 Office Visit Chemotherapy Shelley Nicole MD [address] [place] [address] [facility] [place] [facility] Start: 04-16-2022 End: 04-16-2022 Patient encounter procedure 04/16/2022 Office Visit Urology Jonathan Cm, HYDRAULIC PRESS SERVICER [address] [place] [address] [facility] Start: 03-23-2022 End: 03-23-2023 Complete blood count with white cell differential, automated CBC, EDIF, PLATELET Lab Routine Controlled type 2 diabetes mellitus with chronic kidney disease, without long-term current use of insulin, unspecified CKD stage Hyperlipidemia LDL goal <70 Idiopathic chronic gout without tophus, unspecified site B12 deficiency Folate deficiency PVC's (premature ventricular contractions) Anemia, unspecified type Expected: 03/23/2022, Expires: 03/23/2023 [facility] Comment on above: Expected: 03/23/2022, Expires: 3 Start: 03-23-2022 End: 03-23-2023 Comprehensive metabolic 2000 panel - Serum or Plasma COMPREHENSIVE METABOLIC PANEL Lab Routine Controlled type 2 diabetes mellitus with chronic kidney disease, without long-term current use of insulin, unspecified CKD stage Hyperlipidemia LDL goal <70 Idiopathic chronic gout without tophus, unspecified site PVC's (premature ventricular contractions) Expected: 03/23/2022, Expires: 03/23/2023 [facility] Comment on above: Expected: 03/23/2022, Expires: 3 Start: 03-23-2022 End: 03-23-2023 Cyanocobalamin vitamin b-12 VITAMIN B12 Lab Routine B12 deficiency Folate deficiency Anemia, unspecified type Expected: 03/23/2022, Expires: 03/23/2023 [facility] Comment on above: Expected: 03/23/2022, Expires: 3 Start: 03-23-2022 End: 03-23-2023 Ferritin [Mass/volume] in Serum or Plasma FERRITIN Lab Routine Anemia, unspecified type Expected: 03/23/2022, Expires: 03/23/2023 [facility] Comment on above: Expected: 03/23/2022, Expires: 3 Start: 03-23-2022 End: 03-23-2023 Folate [Mass/volume] in Serum or Plasma FOLATE, SERUM Lab Routine B12 deficiency Folate deficiency Anemia, unspecified type Expected: 03/23/2022, Expires: 03/23/2023 [facility] Comment on above: Expected: 03/23/2022, Expires: 3 Start: 03-23-2022 End: 03-23-2023 Hemoglobin A1c/Hemoglobin.total in Blood HEMOGLOBIN A1C Lab Routine Controlled type 2 diabetes mellitus with chronic kidney disease, without long-term current use of insulin, unspecified CKD stage Expected: 03/23/2022, Expires: 03/23/2023 [facility] Comment on above: Expected: 03/23/2022, Expires: 3 Start: 03-23-2022 End: 03-23-2023 IRON/IRON BINDING/TRANSFERRIN IRON/IRON BINDING/TRANSFERRIN Lab Routine Anemia, unspecified type Expected: 03/23/2022, Expires: 03/23/2023 [facility] Comment on above: Expected: 03/23/2022, Expires: 3 Start: 03-23-2022 End: 03-23-2023 LIPID PANEL W CALCULATED LDL LIPID PANEL W CALCULATED LDL Lab Routine Controlled type 2 diabetes mellitus with chronic kidney disease, without long-term current use of insulin, unspecified CKD stage Hyperlipidemia LDL goal <70 Idiopathic chronic gout without tophus, unspecified site PVC's (premature ventricular contractions) Expected: 03/23/2022, Expires: 03/23/2023 [facility] Comment on above: Expected: 03/23/2022, Expires: 3 Start: 03-23-2022 End: 03-23-2023 Thyrotropin [Units/volume] in Serum or Plasma TSH Lab Routine Controlled type 2 diabetes mellitus with chronic kidney disease, without long-term current use of insulin, unspecified CKD stage Hyperlipidemia LDL goal <70 Idiopathic chronic gout without tophus, unspecified site PVC's (premature ventricular contractions) Expected: 03/23/2022, Expires: 03/23/2023 [facility] Comment on above: Expected: 03/23/2022, Expires: 3 Start: 03-23-2022 End: 03-23-2023 Urate [Mass/volume] in Serum or Plasma URIC ACID Lab Routine Controlled type 2 diabetes mellitus with chronic kidney disease, without long-term current use of insulin, unspecified CKD stage Idiopathic chronic gout without tophus, unspecified site Expected: 03/23/2022, Expires: 03/23/2023 [facility] Comment on above: Expected: 03/23/2022, Expires: 3 Start: 03-23-2022 End: 03-23-2023 VITAMIN D (25-HYDROXY,TOTAL) VITAMIN D (25-HYDROXY,TOTAL) Lab Routine Vitamin D deficiency Expected: 03/23/2022, Expires: 03/23/2023 [facility] Comment on above: Expected: 03/23/2022, Expires: Start: 03-23-2022 End: 03-23-2022 Patient encounter procedure 03/23/2022 Office Visit Family Medicine Fernie Paredes, DO [address] [facility] [address] [facility] [address] [facility] [place] [address] [facility] Start: 03-12-2022 End: 03-12-2022 Patient encounter procedure 03/12/2022 Office Visit Urology Jonathan Cm, HYDRAULIC PRESS SERVICER [address] [place] [address] [facility] Start: 03-02-2022 End: 03-02-2022 Patient encounter procedure 03/02/2022 Office Visit Orthopaedics Garry Stephens MD [address] [facility] [address] [facility] Start: 02-22-2022 Microscopic observation [Identifier] in Cervix by Cyto stain PAP SMEAR [facility] Start: 02-04-2022 End: 02-04-2022 Patient encounter procedure 02/04/2022 Office Visit Orthopaedics Garry Stephens MD [address] [facility] [place] [address] [facility] Start: 02-02-2022 End: 02-02-2022 Patient encounter procedure 02/02/2022 Office Visit 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 BLANKS 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, 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 [id number] [place] [address] [facility] 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 BLANKS Start: 02-01-2022 End: 02-01-2022 Patient encounter procedure 02/01/2022 Office Visit Chemotherapy Shelley Nicole MD [address] [place] [address] [facility] [place] [facility] Start: 01-05-2022 Mammography MAMMOGRAM [facility] Start: 01-05-2022 Screening mammography Mammogram [facility] Start: 10-24-2021 DEPRESSION ASSESSMENT DEPRESSION ASSESSMENT [facility] Start: 2018 Hepatitis B Vaccines (1 of 3 - Risk 3-dose series) Hepatitis B Vaccines (1 of 3 - Risk 3-dose series) [facility] Start: 2018 Respiratory Syncytial Virus Immunization: Risk, 60-74 Risk, or 75+ (1 - Risk 60-74 years 1-dose series) Respiratory Syncytial Virus Immunization: Risk, 60-74 Risk, or 75+ (1 - Risk 60-74 years 1-dose series) [facility] Start: 2018 RSV High Risk: (Elderly (60+) or Population) (1 - Risk 60-74 years 1-dose series) RSV High Risk: (Elderly (60+) or Population) (1 - Risk 60-74 years 1-dose series) [facility] Start: 2018 RSV Vaccine (1 - 1-dose 60+ series) RSV Vaccine (1 - 1-dose 60+ series) [facility] Start: 2018 RSV Vaccine (1 - Risk 60-74 years 1-dose series) RSV Vaccine (1 - Risk 60-74 years 1-dose series) [facility] Start: 06-10-2017 Procedure Education Eprescribed prescriptions (G8553) [facility] Work Phone: Start: 06-10-2017 Provider Instructions for Treatment Follow up in 6 weeks [facility] Work Phone: Start: 02-04-2017 Provider Instructions for Treatment [facility] Work Phone: Start: 02-04-2017 Blood occult fecal hgb deter ia qual feces 1-3 FECAL OCCULT- Tubes sent home (38645) [facility] Work Phone: Start: 04-12-2016 Patient Education [facility] Work Phone: Start: 04-12-2016 Procedure Education Eprescribed prescriptions (G8553) [facility] Work Phone: Start: 04-12-2016 Glucose mass conc Blood Glucose , Office (00060) [facility] Work Phone: Start: 02-11-2016 Hepatic function panel HEPATIC FUNCTION PANEL (66261) [facility] Work Phone: Start: 12-04-2015 Procedure Education Eprescribed prescriptions (G8553) [facility] Work Phone: Start: 12-04-2015 Hemoglobin A1c/Hemoglobin.total mass fraction (Bld) Hemoglobin Glyclated (HGB A1C) (87129) [facility] Work Phone: Start: 12-04-2015 Comprehensive metabolic panel METABOLIC PANEL, COMPREHENSIVE (87622) [facility] Work Phone: Start: 12-04-2015 Lipid panel LIPID PANEL (21913) [facility] Work Phone: Start: 02-14-2015 Provider Instructions for Treatment [facility] Work Phone: Start: 02-14-2015 Iaadiadoo influenza FLU A+B DIRECT AG, (RAPID) (11380) [facility] Work Phone: Start: 10-22-2014 Procedure Education Eprescribed prescriptions (G8553) [facility] Work Phone: Start: 10-22-2014 Cobalamin (Vitamin B12) mass conc Vitamin B-12 (cyanocobalamin) (90050) [facility] Work Phone: Start: 10-22-2014 Hemoglobin A1c/Hemoglobin.total mass fraction (Bld) HgA1C , Office (40787) [facility] Work Phone: Start: 10-22-2014 Hepatic function panel HEPATIC FUNCTION PANEL (40282) [facility] Work Phone: Start: 10-22-2014 25 hydroxy includes fractions if performed CALCIFIDIOL (87641) VIT D 25 [facility] Work Phone: Start: 05-31-2014 Colonoscopy COLONOSCOPY [facility] Start: 05-31-2014 COLORECTAL CANCER SCREENING COLORECTAL CANCER SCREENING [facility] Start: 05-31-2014 Screening for malignant neoplasm of colon [facility] Start: 04-29-2014 Comprehensive metabolic panel METABOLIC PANEL, COMPREHENSIVE (41756) [facility] Work Phone: Start: 04-29-2014 Lipid panel LIPID PANEL (25356) [facility] Work Phone: Start: 09-28-2013 Lipid panel LIPID PANEL (48165) [facility] Work Phone: Start: 09-28-2013 Hepatic function panel HEPATIC FUNCTION PANEL (38987) [facility] Work Phone: Start: 09-03-2013 Patient Education Nausea and Vomiting: nausea [facility] Work Phone: Start: 09-03-2013 Hepatic function panel HEPATIC FUNCTION PANEL (40976) [facility] Work Phone: Start: 09-03-2013 Acute hepatitis panel HEPATITIS PANEL (07984) [facility] Work Phone: Start: 09-03-2013 Fluorescent nonnfct agt antb screen ea antibody ASM (ANTI SMOOTH MUSCLE ANTIBODY) (86057) [facility] Work Phone: Start: 09-03-2013 Microsomal antibodies each ANTI-LIVER/KIDNEY MICROSOMAL ANTIBODY (25653) [facility] Work Phone: Start: 09-03-2013 Immunoassay analyte qual/semiqual multiple step ANTIMITOCHONDRIAL ANTIBODY (09981) [facility] Work Phone: Start: 09-03-2013 Ferritin mass conc FERRITIN (25349) [facility] Work Phone: Start: 09-03-2013 Ceruloplasmin CERULOPLASMIN (91845) [facility] Work Phone: Start: 04-17-2013 Provider Instructions for Treatment Follow up in 2 weeks [facility] Work Phone: Start: 04-17-2013 Troponin I.cardiac mass conc Troponin I (52495) [facility] Work Phone: Start: 04-17-2013 Creatine kinase mb fraction only CPK MB FRACTION (86710) [facility] Work Phone: Start: 04-17-2013 Creatine kinase total CREATINE KINASE TOTAL (00835) [facility] Work Phone: Start: 03-01-2013 Comprehensive metabolic panel METABOLIC PANEL, COMPREHENSIVE (64257) [facility] Work Phone: Start: 03-01-2013 Lipid panel LIPID PANEL (91766) [facility] Work Phone: Start: 03-01-2013 Blood count manual cell count each CBC WITH MANUAL DIFF (31466) [facility] Work Phone: Start: 03-01-2013 Organic acid 1 quantitative Methymalonic Acid, Serum (65940) [facility] Work Phone: Start: 03-01-2013 Cobalamin (Vitamin B12) mass conc Vitamin B-12 (cyanocobalamin) (59353) [facility] Work Phone: Start: 03-01-2013 25 hydroxy includes fractions if performed CALCIFIDIOL (32216) VIT D 25 [facility] Work Phone: Start: 09-08-2012 Comprehensive metabolic panel Metabolic Panel, Comprehensive (11273) [facility] Work Phone: Comment on above: in three months (approximately) Start: 09-08-2012 Protein mass conc LIPOPROTEIN, BLD, BY NMR (22291) [facility] Work Phone: Comment on above: in three months (approximately) Start: 03-30-2012 Hepatitis B vaccination [facility] tem Start: 12-03-2011 Fibrin dgradj splt products quantitative FIBRIN DEGRAD QUANTITATV (55788) [facility] Work Phone: Start: 12-03-2011 Acute hepatitis panel HEPATITIS PANEL (20023) [facility] Work Phone: Start: 12-03-2011 Culture bacterial blood aerobic w/id isolates TYRA CULTURE-BLOOD (78818) [facility] Work Phone: Start: 12-03-2011 Tb cell mediated antign respnse gamma interferon Quantiferron gold test (95552) [facility] Work Phone: Start: 12-03-2011 Antihuman globulin indir qual ea reagent cell MARION TEST, INDIRECT (96877) [facility] Work Phone: Start: 12-03-2011 Antihuman globulin direct each antiserum MARION TEST, DIRECT (13152) [facility] Work Phone: Start: 12-03-2011 aPTT Coag time (Bld) PTT (Activated Partial Thromboplastin Time) (15664) [facility] Work Phone: Start: 12-03-2011 Prothrombin time (PT) Coag time (PPP) PT (Prothrobim Time) (23144) [facility] Work Phone: Start: 12-03-2011 Nuclear Ab IF titer (S) MARY (ANTINUCLEAR ANTIBODY) (35373) [facility] Work Phone: Start: 12-03-2011 Sedimentation rate rbc non-automated Sed Rate Erythrocyte (18584) [facility] Work Phone: Start: 12-03-2011 CRP mass conc C-Reactive Protein (06380) [facility] Work Phone: Start: 11-29-2011 Assay of ethanol ALCOHOL, ETHYL (BLOOD) (09960) [facility] Work Phone: Start: 11-29-2011 Blood count manual cell count each CBC with manual diff (04536) [facility] Work Phone: Start: 11-29-2011 Assay of folic acid serum Folic Acid Serum (32749) [facility] Work Phone: Start: 11-29-2011 Cobalamin (Vitamin B12) mass conc Vitamin B-12 (cyanocobalamin) (42808) [facility] Work Phone: Start: 11-29-2011 Antibody sonya-larsen eb virus early antigen ea EBV Panel (59245) [facility] Work Phone: Start: 11-29-2011 Antibody cytomegalovirus cmv igm CMV IGM ANTBDY (26648) [facility] Work Phone: Start: 11-29-2011 Antibody cytomegalovirus cmv CMV ANTIBODY (60826) [facility] Work Phone: Start: 11-19-2011 Assay of ethanol ALCOHOL, ETHYL (BLOOD) (07811) [facility] Work Phone: Comment on above: add to labs already drawn Start: 11-19-2011 Assay of folic acid serum Folic Acid Serum (50041) [facility] Work Phone: Start: 11-19-2011 Cobalamin (Vitamin B12) mass conc Vitamin B-12 (cyanocobalamin) (67989) [facility] Work Phone: Start: 11-18-2011 Lactate dehydrogenase ldh LDH (LD) (LACTATE DEHYDROGENASE) (72288) [facility] Work Phone: Start: 11-17-2011 Blood count manual cell count each CBC with manual diff (84708) [facility] Work Phone: Start: 10-21-2011 25 hydroxy includes fractions if performed CALCIFIDIOL (89544) VIT D 25 [facility] Work Phone: Comment on above: low calcium Start: 10-21-2011 Comprehensive metabolic panel METABOLIC PANEL, COMPREHENSIVE (97425) [facility] Work Phone: Start: 10-21-2011 Protein mass conc LIPOPROTEIN, BLD, BY NMR (38868) [facility] Work Phone: Start: 10-19-2011 Provider Instructions for Treatment [facility] Work Phone: Start: 10-19-2011 Comprehensive metabolic panel METABOLIC PANEL, COMPREHENSIVE (15677) [facility] Work Phone: Start: 10-19-2011 Lipid panel LIPID PANEL (35958) [facility] Work Phone: Start: 09-03-2010 Culture bct isol&prsmptv id isolate ea urine URINE TYRA CULTURE-IDENTIFICATN (13721) [facility] Work Phone: Start: 06-18-2010 Comprehensive metabolic panel METABOLIC PANEL, COMPREHENSIVE (37908) [facility] Work Phone: Start: 06-18-2010 Lipid panel LIPID PANEL (68295) [facility] Work Phone: Start: 05-25-2010 Provider Instructions for Treatment [facility] Work Phone: Start: 08-22-2008 Cobalamin (Vitamin B12) mass conc Vitamin B-12 (cyanocobalamin) (02326) [facility] Work Phone: Start: 08-22-2008 Blood count complete automated CBC (Auto) (91632) [facility] Work Phone: Start: 08-22-2008 Comprehensive metabolic panel Metabolic Panel, Comprehensive (59314) [facility] Work Phone: Start: 08-22-2008 Lipid panel Lipid Panel (64347) [facility] Work Phone: Start: 08-22-2008 Organic acid 1 quantitative Methylmalonic acid, serum 44545 [facility] Work Phone: Start: 01-26-2008 Administration of herpes zoster vaccine Zoster Vaccines (1 of 2) [facility] Start: 01-26-2008 Provider Instructions for Treatment FOLLOW UP IN 4 WEEKS [facility] Work Phone: Start: 01-26-2008 Screening for malignant neoplasm of colon [facility] Start: 01-26-2008 Lipid panel Lipid Panel (32014) [facility] Work Phone: Start: 01-26-2008 Comprehensive metabolic panel Metabolic Panel, Comprehensive (06978) [facility] Work Phone: Comment on above: in six months (approximately) Start: 12-26-2007 Provider Instructions for Treatment [facility] Work Phone: Start: 12-26-2007 Urinalysis qual/semiquant except immunoassays URINALYSIS (18989) [facility] Work Phone: Start: 12-26-2007 Blood count complete automated CBC (Auto) (30618) [facility] Work Phone: Start: 12-26-2007 Comprehensive metabolic panel Metabolic Panel, Comprehensive (21690) [facility] Work Phone: Start: 12-26-2007 Lipid panel Lipid Panel (89231) [facility] Work Phone: Start: 10-11-2007 Provider Instructions for Treatment [facility] Work Phone: Start: 12-29-2006 Blood count complete automated CBC (Auto) (87546) [facility] Work Phone: Start: 12-29-2006 Lipid panel Lipid Panel (30096) [facility] Work Phone: Start: 12-29-2006 Comprehensive metabolic panel Metabolic Panel, Comprehensive (61280) [facility] Work Phone: Comment on above: in three months Start: 11-30-2006 Thyrotropin Qn TSH (47634) [facility] Work Phone: Start: 11-30-2006 Comprehensive metabolic panel METABOLIC PANEL, COMPREHENSIVE (45165) [facility] Work Phone: Start: 11-30-2006 Lipid panel LIPID PANEL (30290) [facility] Work Phone: Start: 11-30-2006 Blood count manual cell count each CBC WITH MANUAL DIFF (43112) [facility] Work Phone: Comment on above: request Start: 2003 COLOGUARD (FIT-DNA) COLOGUARD (FIT-DNA) [facility] Start: [address] COLONOGRAPHY [facility] Start: 2003 FECAL OCCULT BLOOD FECAL OCCULT BLOOD [facility] Start: 2003 Screening for malignant neoplasm of colon [facility] Start: 2003 SIGMOIDOSCOPY SIGMOIDOSCOPY [facility] Start: 01-26-1988 HPV TESTING HPV TESTING [facility] Start: 01-26-1988 Screening for malignant neoplasm of cervix HPV/Cotest [facility] Start: 1979 PAP TESTING PAP TESTING [facility] Start: 1977 Administration of herpes zoster vaccine Zoster Vaccines (1 of 2) [facility] Start: 1977 Hepatitis A Vaccines (1 of 2 - Risk 2-dose series) Hepatitis A Vaccines (1 of 2 - Risk 2-dose series) [facility] Start: 1977 SHINGRIX VACCINE (1 of 2) SHINGRIX VACCINE (1 of 2) [facility] Start: 1977 Zoster Vaccines (1 of 2) Zoster Vaccines (1 of 2) [facility] Start: 01-26-1976 ANNUAL PCP TEAM CHRONIC DISEASE VISIT ANNUAL PCP TEAM CHRONIC DISEASE VISIT [facility] Start: 01-26-1976 BP CONTROLLED (<130/80) BP CONTROLLED (<130/80) [facility] Start: 01-26-1976 Hepatitis C screening Hepatitis C Screening [facility] Start: 1974 COVID-19 Vaccine (1) COVID-19 Vaccine (1) [facility] Start: 1973 HIV screening HIV Screening [facility] Start: 1970 Depression screening using PHQ-9 (Patient Health Questionnaire 9) score [facility] Start: 01-26-1968 Diabetic foot examination Diabetic Foot Exam [facility] Start: 01-26-1968 Urine screening for protein [facility] Start: 1963 COVID-19 VACCINE (#1) COVID-19 VACCINE (#1) [facility] Start: 1961 History and physical examination, annual for health maintenance Wellness Visit [facility] Start: 1961 Medicare Wellness Visit Medicare Wellness Visit [facility] Start: 1959 MMR Vaccines (1 of 1 - Standard series) MMR Vaccines (1 of 1 - Standard series) [facility] Start: 1958 COVID-19 VACCINE (#1) COVID-19 VACCINE (#1) [facility] Start: 1958 Lipid panel Lipid Panel [facility] Start: 1958 Medicare Annual Wellness Visit Medicare Annual Wellness Visit (AWV) [facility] Start: 1958 Screening for malignant neoplasm of cervix Pap Smear [facility] Start: 1958 Screening for malignant neoplasm of colon [facility] 12 lead ECG ECG 12 Lead ECG Routine Atrial fibrillation, unspecified type (HCC) 01/06/2024 10:57 AM EDT [facility] Work Phone: 12 lead ECG ECG 12 Lead ECG Routine Atrial fibrillation, unspecified type (HCC) 05/22/2024 10:15 AM EDT [facility] Work Phone: 12 lead ECG ECG 12 Lead ECG Routine Atrial fibrillation, unspecified type (HCC) 10/29/2024 1:40 PM EST [facility] End: 07-08-2023 ANAEROBE CULTURE [facility] Comment on above: Release Upon Ordering for 1 Occurrences starting 07/08/2023 One Time for 1 Occur rences starting 07/08/2023 until 07/08/2023 ANAEROBE CULTURE ANAEROBE CULTUR E Microbiology Routine 07/08/2023 [facility] Anterior colporraphy rpr cystocele w/cysto COLPORRHAPHY ANTERIOR REPAIR CYSTOCELE Mixed stress and urge urinary incontinence Midline cystocele Urethral hypermobility [facility] OR Arthrp kne condyle&p latu medial&lat compartments ARTHROPLASTY KNEE TOTAL Primary osteoarthritis of left knee [facility] Bacterial culture an d sensitivity CULTURE WOUND Microbiology Today Cellulitis of fourth toe of left foot 05/02/2023 3:24 PM [facility] Bacterial culture an d sensitivity CULTURE WOUND Microbiology Today Cellulitis and abscess of toe of left foot 05/05/2023 12:45 PM [facility] End: 07-08-2023 Bacterial culture and sensitivity [facility] Comment on above: Release Upon Ordering for 1 Occurrences starting 07/08/2023 One Time for 1 Occur rences starting 07/08/2023 until 07/08/2023 Bacterial culture an d sensitivity CULTURE WOUND Microbiology Routine 07/08/2023 10:02 AM [facility] End: 10-29-2025 Basic metabolic 2000 panel - Serum or Plasma Basic metabolic panel Lab Routine PAF (paroxysmal atrial fibrillation) ([facility]) 1 Occurrences starting 10/29/2024 until 10/29/2025 [facility] Comment on above: 1 Occurrences starting 10/29/2024 until 10/29/2025 End: 11-08-2024 Blood type and Indirect antibody screen panel - Blood Type and Screen Blood Bank Routine Preop testing 1 Occurrences starting 11/08/2023 until 11/08/2024 [facility] Comment on above: 1 Occurrences starting 11/08/2023 until 11/08/2024 End: 11-08-2024 Complete blood count with white cell differential, manual CBC and differential Lab Routine Preop testing 1 Occurrences starting 11/08/2023 until 11/08/2024 [facility] Work Phone: Comment on above: 1 Occurrences starting 11/08/2023 until 11/08/2024 End: 10-29-2025 Complete blood count with white cell differential, manual CBC and differential Lab Routine PAF (paroxysmal atrial fibrillation) (HCC) 1 Occurrences starting 10/29/2024 until 10/29/2025 [facility] Work Phone: Comment on above: 1 Occurrences starting 10/29/2024 until 10/29/2025 End: 11-08-2024 Comprehensive metabolic 2000 panel - Serum or Plasma Comprehensive metabolic panel Lab Routine Preop testing 1 Occurrences starting 11/08/2023 until 11/08/2024 [facility] Work Phone: Comment on above: 1 Occurrences starting 11/08/2023 until 11/08/2024 End: 11-08-2024 CT Abdomen WO and W contrast IV CT MARY LOU (Left Atrial Appendage) CCTA With and Without Contrast Imaging Routine Atrial fibrillation, unspecified type (HCC) 1 Occurrences starting 11/08/2023 until 11/08/2024 [facility] Work Phone: Comment on above: 1 Occurrences starting 11/08/2023 until 11/08/2024 End: 06-07-2025 CT [facility]bar [facility] Comment on above: 1 Occurrences starting 06/07/2025 until 06/07/2025 End: 02-20-2024 CT Pelvis [facility] Work Phone: Comment on above: 1 Occurrences starting 02/20/2024 until 02/20/2024 Cystourethroscopy w/ dil bladder general anesth CYSTOURETHROSCOPY W/ DILATION BLADDER Mixed stress and urge urinary incontinence Midline cystocele Urethral hypermobility [facility] End: 04-05-2025 ECG 12 lead ECG 12 lead ECG STAT Once for 1 Occurrences starting 04/05/2025 until 04/05/2025 [facility] Work Phone: Comment on above: Once for 1 Occurrences starting 04/05/20 until 04/05/2025 End: 04-04-2025 Extra Tubes [facility] Work Phone: Comment on above: Once (Lab) for 1 Occurrences starting until 04/04/2025 FUNGITELL ASSAY FUNGITELL ASSAY Lab Today Open wound of fourth toe of left foot, sequela 08/04/2023 11:39 AM [facility] Fungus identified in Unspecified specimen by Culture FUNGUS CULTURE Microbiology Routine Abscess of fourth toe of left foot Cellulitis of fourth toe, left Release Upon Ordering for 1 Occurrences starting 07/08/2023 [facility] Comment on above: Release Upon Ordering for 1 Occurrences starting 07/08/2023 End: 09-28-2023 HOME SLEEP APNEA TEST (HSAT) HOME SLEEP APNEA TEST (HSAT) Procedures Routine PERCY (obstructive sleep apnea) 1 Occurrences starting 09/28/2022 until 09/28/2023 [facility] Work Phone: Comment on above: 1 Occurrences starting 09/28/2022 until 09/28/2023 I&d below fascia wilbert t 1 bursal space I&D BURSA FOOT Abscess of fourth toe of left foot Cellulitis of fourth toe, left [facility] End: 11-08-2024 INR in Platelet poor plasma by Coagulation assay Protime-INR Lab Routine Preop testing Atrial fibrillation, unspecified type (HCC) 1 Occurrences starting 11/08/2023 until 11/08/2024 [facility] Comment on above: 1 Occurrences starting 11/08/2023 until 11/08/2024 LEFT ATRIAL APPENDAG E LIGATION LEFT ATRIAL APPENDAGE LIGATION atrial fibrillation [facility] M TUBERCULOSIS BY QUANTIFERON, BLD M TUBERCULOSIS BY QUANTIFERON, BLD Lab Today Open wound of fourth toe of left foot, sequela 08/04/2023 11:39 AM [facility] Karena post-voiding residual urine&/bladder cap TN KARENA,POST-VOID RES,US,NON-IMAGING TN Charge Routine Urge incontinence Ordered: 01/27/2022 [facility] Comment on above: Ordered: 01/27/2022 Karena post-voiding residual urine&/bladder cap TN KARENA,POST-VOID RES,US,NON-IMAGING TN Charge Routine Urinary tract infection without hematuria, site unspecified Urge incontinence Ordered: 04/16/2022 [facility] Comment on above: Ordered: 04/16/2022 End: 01-07-2023 MG Breast - bilateral Screening [facility] Work Phone: Comment on above: 1 Occurrences starting 01/07/2023 until 01/07/2023 End: 01-23-2024 MG Breast - bilateral Screening [facility] Work Phone: Comment on above: 1 Occurrences starting 01/23/2024 until 01/23/2024 End: 03-06-2025 MG Breast - bilateral Screening [facility] Comment on above: 1 Occurrences starting 03/06/2025 until 03/06/2025 End: 06-17-2025 MR Foot - left WO contrast [facility] Comment on above: 1 Occurrences starting 06/17/2025 until 06/17/2025 End: 06-07-2025 MR Lumbar spine WO contrast [facility] Comment on above: 1 Occurrences starting 06/07/2025 until 06/07/2025 End: 07-08-2023 Mycobacterium sp identified in Unspecified specimen by Organism specific culture [facility] Comment on above: Release Upon Ordering for 1 Occurrences starting 07/08/2023 One Time for 1 Occur rences starting 07/08/2023 until 07/08/2023 Mycobacterium sp identified in Unspecified specimen by Organism specific culture ACID FAST CULTURE Microbiology Routine 07/08/2023 10:02 AM EDT [facility] End: 12-17-2023 NM CARDIAC PERF STRESS/PHARM NM CARDIAC PERF STRESS/PHARM Radiology Routine PAF (paroxysmal atrial fibrillation) (HCC) 1 Occurrences starting 11/17/2022 until 12/17/2023 [facility] Work Phone: Comment on above: 1 Occurrences starting 11/17/2022 until 12/17/2023 OUTSIDE VENDOR CARDI AC OUTPATIENT EXTENDED RHYTHM RECORDING (WITHOUT TELEMETRY) OUTSIDE VENDOR CARDIAC OUTPATIENT EXTENDED RHYTHM RECORDING (WITHOUT TELEMETRY) Holter Routine PAF (paroxysmal atrial fibrillation) (HCC) PVC (premature ventricular contraction) Ordered: 11/17/2022 [facility] Work Phone: Comment on above: Ordered: 11/17/2022 Patient referral [facility] Work Phone: Radiography for bone length studies XR BONE LENGTH STUDY Imaging Routine Left knee pain, unspecified chronicity 11/17/2022 11:40 AM EST [facility] End: 06-17-2022 RF Unspecified body region Views during surgery [facility] Comment on above: One Time for 1 Occurrences starting 05/25 until 06/17/2022 End: 12-16-2022 RF Unspecified body region Views during surgery [facility] Comment on above: One Time for 1 Occurrences starting 11/25 until 12/16/2022 End: 05-03-2024 RF Unspecified body region Views during surgery [facility] Comment on above: One Time for 1 Occurrences starting 04/23 until 05/03/2024 SLEEP FOLLOW UP SLEEP FOLLOW UP Dental Routine 1 Occurrences starting 04/07/2023 [facility] Work Phone: Comment on above: 1 Occurrences starting 04/07/2023 SLEEP IMPRESSIONS SLEEP IMPRESSI ONS Dental Routine 1 Occurrences starting 04/07/2023 [facility] Work Phone: Comment on above: 1 Occurrences starting 04/07/2023 Sling operation stre ss incontinence SUSPENSION URETHRA/URETHROVESICAL FEMALE OPEN W/ SYNTHETIC MATERIAL (SLING) Mixed stress and urge urinary incontinence Midline cystocele Urethral hypermobility [facility] End: 04-04-2025 SST TOP [facility] Work Phone: Comment on above: Once for 1 Occurrences starting 04/04/20 until 04/04/2025, 1 completed SURGICAL PATHOLOGY REQUEST SURGICAL PATHOLOGY REQUEST Surg Path Routine Osteoarthritis of left knee, unspecified osteoarthritis type Release Upon Ordering for 1 Occurrences starting 11/12/2024 [facility] Comment on above: Release Upon Ordering for 1 Occurrences starting 11/12/2024 End: 04-05-2025 Troponin I.cardiac panel - Serum or Plasma by High sensitivity method [facility] Work Phone: Comment on above: STAT (Lab) for 1 Occurrences starting until 04/05/2025 Once for 1 Occurrenc es starting 04/05/2025 until 04/05/2025 unspecified maxillofacial prosthesis, by report SLEEP INSERT Dental Routine 1 Occurrences starting 04/07/2023 [facility] Work Phone: Comment on above: 1 Occurrences starting 04/07/2023 Urodynamic studies URODYNAMICS G U Procedure Routine Urinary incontinence, unspecified type Dysuria Ordered: 06/01/2022 [facility] Work Phone: Comment on above: Ordered: 06/01/2022 URODYNAMICS URODYNAMICS Proc edures Routine Urinary incontinence, unspecified type Dysuria 06/01/2022 9:00 AM EDT [facility] End: 03-20-2024 US Thyroid gland [facility] Comment on above: 1 Occurrences starting 03/20/2024 until 03/20/2024 End: 02-20-2024 XR Hip - right 2 Views [employer] Work Phone: Comment on above: 1 Occurrences starting 02/20/2024 until 02/20/2024 XR Knee - left 3 Views XR KNEE L EFT 3 VIEWS Imaging Routine History of total knee arthroplasty, left 12/05/2024 2:26 PM EST [employer] XR Knee - left 4 Views XR KNEE L EFT 4+ VIEWS Imaging Routine Left knee pain, unspecified chronicity 11/17/2022 11:40 AM [employer] Work Phone: XR Knee - left 4 Views XR KNEE L EFT 4+ VIEWS Imaging Routine Left knee pain, unspecified chronicity 08/30/2024 2:42 PM EST [facility] End: 10-12-2022 XR Lumbar spine Views W right bending and W left bending [facility] Work Phone: Comment on above: 1 Occurrences starting 10/12/2022 until 10/12/2022 End: 01-23-2024 XR Lumbar spine Views W right bending and W left bending [facility] Work Phone: Comment on above: 1 Occurrences starting 01/23/2024 until 01/23/2024 End: 08-15-2024 XR Lumbar spine Views W right bending and W left bending [facility] Work Phone: Comment on above: 1 Occurrences starting 08/15/2024 until 08/15/2024 End: 05-15-2024 XR Spine lumbosacral junction Views [facility] Work Phone: Comment on above: 1 Occurrences [...] Immunizations Immunization Date Immunization Notes Care Provider [facility] 09-19-2024 influenza, high dose seasonal, preservative-free Fernie Paredes DO Work Phone: [facility] 09-19-2024 influenza virus vacc ine, unspecified formulation Isreal Sigala MD Work Phone: [facility] 08-25-2023 influenza, injectabl e, quadrivalent, preservative free Monse Shipley MD Work Phone: [facility] 08-25-2023 influenza virus vacc ine, unspecified formulation Isreal Sigala MD Work Phone: [facility] 05-13-2023 pneumococcal polysaccharide vaccine, 23 valent Isreal Sigala MD Work Phone: [facility] 09-29-2022 Seasonal, quadrivale nt, recombinant, injectable influenza vaccine, preservative free Dairusz Rangel MD Work Phone: [facility] 09-29-2022 influenza virus vacc ine, unspecified formulation Fernando Davison MD Work Phone: [facility] 08-07-2021 Seasonal, quadrivale nt, recombinant, injectable influenza vaccine, preservative free Washington Garner MD Work Phone: [facility] 08-07-2021 influenza virus vacc ine, unspecified formulation Fernie Paredes DO Work Phone: [facility] 08-06-2020 influenza, injectabl e, quadrivalent, preservative free Washington Garner MD Work Phone: [facility] 08-08-2019 influenza, injectabl e, quadrivalent, contains preservative Washington Garner MD Work Phone: [facility] 08-08-2019 pneumococcal conjuga te vaccine, 13 valent Washington Garner MD Work Phone: [facility] 08-02-2018 influenza, injectabl e, quadrivalent, contains preservative Washington Garner MD Work Phone: [facility] 05-12-2018 pneumococcal polysaccharide vaccine, 23 valent Washington Garner MD Work Phone: [facility] 04-14-2018 tetanus toxoid, redu doron diphtheria toxoid, and acellular pertussis vaccine, adsorbed Washington Garner MD Work Phone: [facility] 08-10-2017 influenza, injectabl e, quadrivalent, contains preservative Washington Garner MD Work Phone: [facility] 08-10-2017 influenza, injectabl e, quadrivalent, preservative free Washington Garner MD Work Phone: [facility] 11-03-2016 influenza, injectabl e, quadrivalent, contains preservative Washington Garner MD Work Phone: [facility] 11-03-2016 influenza, injectabl e, quadrivalent, preservative free Washington Garner MD Work Phone: [facility] 10-22-2015 influenza, seasonal, injectable Washington Garner MD Work Phone: [facility] 10-22-2015 pneumococcal conjuga te vaccine, 13 valent Washington Garner MD Work Phone: [facility] 10-27-2011 hepatitis B vaccine, adult dosage Naty Bhakta MD Work Phone: [facility] 10-27-2011 hepatitis B vaccine, pediatric or pediatric/adolescent dosage Washington Garner MD Work Phone: [facility] 09-29-2011 hepatitis B vaccine, adult dosage Naty Bhakta MD Work Phone: [facility] 09-29-2011 hepatitis B vaccine, pediatric or pediatric/adolescent dosage Washington aGrner MD Work Phone: [facility] Payers Date Payer Category Payer Self-pay 01-22-2023 Managed Care (unspecified) MEDIC ARE SUPPLEMENT [id number] 01-22-2023 Medicare [id number] 01-22-2023 Private Health Insurance [id number] 01-22-2023 Medicare [id number] 01-22-2023 Private Health Insurance [employer] [place] [id number] 04-23-2020 Unknown MMO MED M[employer] S UPERMED PPO [id number] 04/23/2020- [id number] 04-23-2020 Unknown [id number] 03-24-2019 Unknown 10-24-2017 Unknown ANTHEM SANDER BLUE/PREF/HMO/PPO [id number] 10/24/2017- [id number] 10-24-2011 Unknown ANTHEM [id number] 1958 Unknown [id number] .[id number] 1958 Unknown [id number] .2.1068 1958 Unknown [id number] .2.1068 1958 Unknown [id number] [id number] .2.1068 1958 Unknown [id number] .2.1068 1958 Unknown [id number] [id number] .2.1069 1958 Unknown [id number] [id number] .2.1068 1958 Unknown [id number] 2.16.840.1.264099.3.579 .2.9 1958 Unknown [id number] [id number] .2.1068 1958 Unknown [id number] [id number] .2.1068 1958 Unknown [id number] .2. 1958 Unknown [id number] 2.840.1.813316.3.579 .2.2 1960 Unknown [id number] 2.840.1.834961.3.579 .2. 1960 Unknown [id number] 2.840.1.278069.3.579 .2. 1960 Unknown [id number] 2.840.1.872700.3.579 .2. 1958 Unknown [id number] 2.840.1.042397.3.579 .2.903 1960 Unknown [id number] 2.840.1.480868.3.579 .2.90 1958 Unknown [id number] 2.16.840.1.696839.3.579 .2.90 1958 Unknown [id number] 2.16.840.1.746336.3.579 .2.594 1958 Unknown [id number] 2.16.840.1.047842.3.579 .2.903 1958 Unknown [id number] 2.16.840.1.350889.3.579 .2.90 1958 Unknown [id number] 2.16.840.1.713284.3.579 .2. 1958 Unknown [id number] 2.16.840.1.388606.3.579 .2. 1958 Unknown [id number] 2.16.840.1.569932.3.579 .2. 1958 Unknown [id number] 2.16.840.1.594188.3.579 .2. 1958 Unknown [id number] 2.16840.1.190403.3.579 .2. 1958 Unknown [id number] 2.16840.1.759241.3.579 .2. 1958 Unknown [id number] 2.840.1.680463.3.579 .2. 1958 Unknown [id number] 2.16840.1.707901.3.579 .2.3 1958 Unknown [id number] 2.840.1.816544.3.579 .2. 1958 Unknown [id number] 2.16840.1.842039.3.579 .2.1242 1958 Unknown [id number] 2.840.1.671767.3.579 .2.1242 1958 Unknown [id number] 2.16840.1.455892.3.579 .2.1242 1958 Unknown [id number] 2.16840.1.691459.3.579 .2.1242 1958 Unknown [id number] 2.16840.1.319115.3.579 .2.1242 1958 Unknown [id number] 2.16840.1.734368.3.579 .2.1242 1958 Unknown [id number] 2.16.840.1.617684.3.579 .2.1242 1958 Unknown [id number] 2.16.840.1.885013.3.579 .2.1242 1958 Unknown [id number] 2.16.840.1.804399.3.579 .2.1242 1958 Unknown [id number] 2.16.840.1.294057.3.579 .2.1242 1958 Unknown [id number] 2.16.840.1.887663.3.579 .2.1242 1958 Unknown [id number] 2.16.840.1.459634.3.579 .2.1242 1958 Unknown [id number] 2.840.1.760035.3.579 .2.1242 1958 Unknown [id number] 2.16840.1.305862.3.579 .2.1242 1958 Unknown [id number] 2.840.1.066737.3.579 .2.1242 1958 Unknown [id number] 2.16.840.1.064416.3.579 .2.1242 1958 Unknown [id number] 2.16840.1.163084.3.579 .2.1242 1958 Unknown [id number] 2.16840.1.839613.3.579 .2.1242 1958 Unknown [id number] 2.16.840.1.108145.3.579 .2.1242 1958 Unknown [id number] 2.16.840.1.371774.3.579 .2.1242 1958 Unknown [id number] 2.16.840.1.809798.3.579 .2.1242 1958 Unknown [id number] 2.16.840.1.666738.3.579 .2.1243 1958 Unknown [id number] 2.16.840.1.860337.3.579 .2.1242 1958 Unknown [id number] 2.16.840.1.373617.3.579 .2.1243 1958 Unknown [id number] 2.16.840.1.714689.3.579 .2. 1958 Unknown [id number] 2.16.840.1.671767.3.579 .2. 1958 Unknown [id number] 2.840.1.397411.3.579 .2. 1958 Unknown [id number] 2.840.1.013677.3.579 .2. 1958 Unknown [id number] 2.840.1.387797.3.579 .2. 1958 Unknown [id number] 2.16840.1.906397.3.579 .2. 1958 Unknown [id number] 2.0.1.011917.3.579 .2. 1958 Unknown [id number] 2.840.1.722300.3.579 .2. 1958 Unknown [id number] 2.840.1.502924.3.579 .2. 1958 Unknown [id number] 2.16.840.1.122642.3.579 .2. 1958 Unknown [id number] 2.16.840.1.918864.3.579 .2. 1958 Unknown [id number] 2.16.840.1.649001.3.579 .2. 1958 Unknown [id number] 2.16840.1.731784.3.579 .2.983 1958 Unknown [id number] 2.16.840.1.733847.3.579 .2.983 1958 Unknown [id number] 2.16.840.1.092724.3.579 .2.983 1958 Unknown [id number] 2.16.840.1.477169.3.579 .2.983 1958 Unknown [id number] 2.16.840.1.130253.3.579 .2.983 1958 Unknown [id number] 2.16.840.1.859067.3.579 .2.98 1958 Unknown [id number] 2.16.840.1.048189.3.579 .2.983 1958 Unknown [id number] 2.16.840.1.065601.3.579 .2.98 1958 Unknown [id number] 2.16.840.1.930478.3.579 .2.983 1958 Unknown [id number] 2.16.840.1.065628.3.579 .2.983 1958 Unknown [id number] 2.16.840.1.137673.3.579 .2.983 1958 Unknown [id number] 2.16.840.1.993835.3.579 .2.983 1958 Unknown [id number] 2.16.840.1.036885.3.579 .2.983 1958 Unknown [id number] 2.16.840.1.521880.3.579 .2.983 1958 Unknown [id number] 2.16.840.1.743005.3.579 .2.983 1958 Unknown [id number] 2.16.840.1.617884.3.579 .2.983 1958 Unknown [id number] 2.16.840.1.359659.3.579 .2.983 1958 Unknown [id number] 2.16.840.1.604150.3.579 .2. 1958 Unknown [id number] 2.16.840.1.598462.3.579 .2. 1958 Unknown [id number] 2.16.840.1.600261.3.579 .2. 1958 Unknown [id number] 2.16.840.1.913287.3.579 .2. 1958 Unknown [id number] 2.16.840.1.067683.3.579 .2. 1958 Unknown [id number] 2.16.840.1.974724.3.579 .2. 1958 Unknown [id number] 2.16.840.1.350451.3.579 .2. 1958 Unknown [id number] 2.16.840.1.661675.3.579 .2. 1958 Unknown [id number] 2.16.840.1.279615.3.579 .2. 1958 Unknown [id number] 2.16.840.1.381898.3.579 .2. 1958 Unknown [id number] 2.16.840.1.806378.3.579 .2. 1958 Unknown [id number] 2.16.840.1.858240.3.579 .2.98 1958 Unknown [id number] 2.16.840.1.874374.3.579 .2. 1958 Unknown [id number] 2.16.840.1.089034.3.579 .2.98 1958 Unknown [id number] 2.16.840.1.457007.3.579 .2.983 1958 Unknown [id number] .840.1.193503.3.579 .2.983 1958 Unknown [id number] 2.840.1.772761.3.579 .2.983 Medicare supplementa l policy (as second payer) [employer] 1.2.840.907603.1.13.385 .2.7.9.844112.310.315 Private Health Insurance [facility] W22 [id number] Private Health Insurance [id number] Unknown [id number] 2.840.1.404522.3.579 .2.462 Unknown [id number] 2.840.1.678673.3.579 .2.462 Unknown [id number] 2.840.1.190471.3.579 .2.462 Unknown [id number] 2.840.1.894789.3.579 .2.462 Unknown [id number] 2.840.1.756645.3.579 .2.462 Unknown [id number] 2.16840.1.189000.3.579 .2.462 Unknown [id number] 2.16840.1.773578.3.579 .2.462 Unknown [id number] 2.16840.1.127800.3.579 .2.462 Unknown [id number] 2.840.1.138966.3.579 .2.462 Unknown [id number] 2.16.840.1.197263.3.579 .2.462 Unknown [id number] 2.16.840.1.798455.3.579 .2.462 Unknown [id number] 2.16.840.1.440477.3.579 .2.462 Unknown [id number] 2.16.840.1.260733.3.579 .2.462 Unknown [id number] 2.16.840.1.966159.3.579 .2.462 Unknown [id number] 2.16.840.1.132168.3.579 .2.462 Unknown [id number] 2.16.840.1.407018.3.579 .2.462 Unknown [id number] 2.16.840.1.032549.3.579 .2.462 Unknown [id number] 2.16.840.1.787831.3.579 .2.462 Unknown [id number] 2.16.840.1.624098.3.579 .2.462 Unknown [id number] 2.16.840.1.523340.3.579 .2.462 Unknown [id number] 2.16.840.1.598735.3.579 .2.462 Unknown [id number] 2.16.840.1.864064.3.579 .2.462 Unknown [id number] 2.16.840.1.632025.3.579 .2.462 Social History Date Type Detail Facility Start: 03-10-2020 End: 12-30-2021 Alcohol Use 0.75 [facility] Work Phone: Comment on above: now rarely coffee 3 cups qd sod a rare Light Lives with spouse [facility] 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 [facility] Work Phone: Tobacco Use: Remotely quit to bacco use. [facility] Work Phone: Start: 02-13-2021 End: 02-05-2023 Tobacco smoking status NHIS Never smoker [facility] Start: 02-13-2021 End: 05-10-2025 Tobacco use and exposure Never used [facility] Start: 02-13-2021 End: 08-09-2025 Alcohol intake Current drinker of alcohol (finding) [facility] Start: 02-13-2021 Alcohol [facility] Start: 1960 Sex Assigned At Not on file [facility] Start: 01-23-2022 End: 02-03-2023 Exposure to SARS-CoV-2 (event) Not sure [facility] Start: 12-30-2021 End: 05-10-2025 Tobacco smoking status WVIS Ex-smoker [facility] Start: 04-23-1978 End: 04-23-2013 History of tobacco use Current smoker [facility] Start: 04-23-1978 End: 04-23-2013 History of tobacco use Cigarette Smoker [facility] Start: 10-07-2021 History SDOH Alcohol Comment Hx ETOH abuse,and now 2 beers weekly [facility] Start: 06-07-2022 End: 06-17-2022 Alcohol intake Ex-drinker (finding) [facility] Start: 09-28-2022 End: 05-22-2025 Alcohol intake Current non-drinker of alcohol (finding) [facility] Start: 1960 Sex Assigned At Female [facility] Start: 06-11-2015 End: 06-11-2015 Tobacco smoking consumption unknown [facility] Start: 11-10-2022 History SDOH Financial 5 [facility] Start: 11-10-2022 History SDOH Food Worry 1 [facility] Start: 11-10-2022 History SDOH Transport Med 2 [facility] Start: 03-10-2020 End: 04-12-2023 Tobacco use panel [facility] Work Phone: Start: 10-24-2023 PHQ-9 Score 17 [facility] Work Phone: Start: 04-12-2023 Alcohol Comment occassionally drinks beer [facility] Start: 12-11-2021 Gender identity Identifies as female gender (finding) [facility] (I/We) worried whether (my/our) food would run out before (I/we) got money to buy more. Never true [facility] Work Phone: In the past 12 months, was there a time when you were not able to pay the mortgage or rent on time? No [facility] Work Phone: Start: 03-24-2023 Gender identity Choose not to disclo se [facility] Start: 10-31-2023 Alcohol Comment Hx ETOH abuse [facility] Start: 01-06-2024 Sexual orientation Heterosexual (fin ding) [facility] Start: 08-09-2014 Sex Female (finding) [facility] Start: 04-05-2025 Tobacco smoking status NHIS Smokes tobacco daily [facility] Start: 04-05-2025 Alcohol Comment daily wine [facility] rum [facility] Work Phone: How hard is it for you to pay for the very basics like food, housing, medical care, and heating Somewhat hard [facility] History of tobacco use Passive smoker [facility] Medical Equipment Procedure Code Equipment Code Equipment Origin al Text Equipment Identifier Dates 11mm X 45mm Fire bird Si Screw [id number] Start: 06-17-2022 Jan Bn Smpx P Ra dpq Fd Strl - [id number] Start: 05-19-2015 Comment on above: Description: SIMPLEX P BONE CEMENT Eei-Cc-E-Kind Implant - [id number] Start: 10-11-2014 Comment on above: Description: ACCUFIL L SYN CALC PHOSPHATE BONE SUBSTITUTE 5CC Fem Psn Ps Por C cr Std Sz8 R - [id number] Start: 05-19-2015 Comment on above: Description: FEMUR C EMENTED POSTERIOR STABILIZED Tib Psn Por 2 Pe g Sz E R - [id number] Start: 05-19-2015 Comment on above: Description: NATURAL TIBIA Port Implantable Power Port 6fr - [id number] Start: 01-28-2012 Comment on above: Description: Powerpo rt Advantage Fit Bl ue System Transvaginal Mid-Urethral Sling [id number] Start: 08-31-2022 Device 24mm Watc hman Flex - [id number] Start: 11-24-2023 Closure Perclose Prostyle - [id number] FDA Start: 11-24-2023 System Watchman Flex Procedure Charge - [id number] Start: 11-24-2023 11mm X 60mm Fire bird Si Screw [id number] Start: 06-17-2022 11mm X 50mm Fire bird Si Screw [id number] Start: 06-17-2022 Orthofix Si Fusi on System Sterile Screw [id number] Start: 05-03-2024 Comment on above: Description: Incisio n to right hip for site of sacroiliac joint Orthofix Si Fusi on System Sterile Screw [id number] Start: 05-03-2024 Comment on above: Description: SITE IS RIGHT SACROILIAC JOINT BUT WITH INCISION TO THE RIGHT HIP Orthofix Si Fusi on System Sterile Screw [id number] Start: 05-03-2024 Comment on above: Description: SITE IS RIGHT SACROILIAC JOINT WITH INCISION TO THE RIGHT HIP Art Srfc Fem Ps 6-9cd 11mm R - [id number] Start: 05-19-2015 Comment on above: Description: [...] review. Brochure given to patient for recall. [facility] Goals: Independent core exercises for snf use to prevent reoccurrence. Return to normal [...] prepare for safety after surgery. 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 Return to normal [...] review. Brochure given to patient for recall. 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 Return to normal activity of house work/leisure/ADLs with post op therapy as ordered by surgeon if needed. 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 - recent [C-SSRS] [facility] Work Phone: 11-12-2024 Are you deaf, or do you have serious difficulty hearing No 11/12/2024 10:00 AM Annalee Chopra RN No [facility] 11-12-2024 Are you blind, or do you have serious difficulty seeing, even when wearing glasses Yes 11/12/2024 10:00 AM Annalee Chopra, REINIER Yes [facility] 11-12-2024 Do you have serious difficulty walking or climbing stairs No 11/12/2024 10:00 AM Annalee Chopra RN No [facility] 11-12-2024 Do you have difficul ty dressing or bathing No 11/12/2024 10:00 AM Annalee Chopra RN No [facility] 11-12-2024 Because of a physica l, mental, or emotional condition, do you have difficulty doing errands alone such as visiting a physician's office or shopping No 11/12/2024 10:00 AM Annalee Chopra RN No [facility] 11-12-2024 Within the last year , have you been humiliated or emotionally abused in other ways by your partner or ex-partner? No 11/12/2024 10:00 AM Annalee Chopra RN No [facility] 11-12-2024 Within the last year , have you been afraid of your partner or ex-partner? No 11/12/2024 10:00 AM Annalee Chopra RN No [facility] 11-12-2024 Within the last year , have you been raped or forced to have any kind of sexual activity by your partner or ex-partner? No 11/12/2024 10:00 AM Annalee Chopra RN No [facility] 11-12-2024 Within the last year , have you been kicked, hit, slapped, or otherwise physically hurt by your partner or ex-partner? No 11/12/2024 10:00 AM Annalee Chopra RN No [facility] 11-12-2022 Are you deaf, or do you have serious difficulty hearing No 11/12/2022 2:58 PM Vero Arriaga RN No [facility] 11-12-2022 Are you blind, or do you have serious difficulty seeing, even when wearing glasses No 11/12/2022 2:58 PM Vero Arriaga RN No [facility] 11-12-2022 Do you have serious difficulty walking or climbing stairs No 11/12/2022 2:58 PM Vero Arriaga RN No [facility] 11-12-2022 Do you have difficul ty dressing or bathing No 11/12/2022 2:58 PM Vero Arriaga RN No [facility] 11-12-2022 Because of a physica l, mental, or emotional condition, do you have difficulty doing errands alone such as visiting a physician's office or shopping No 11/12/2022 2:58 PM Vero Arriaga RN No [facility] Mental Status Date Assessment Result Facility 11-12-2024 Because of a physica l, mental, or emotional condition, do you have serious difficulty concentrating, remembering, or making decisions No 11/12/2024 10:00 AM Annalee Chopra RN [facility] 08-29-2023 Cognitive function Awake;Alert;A ppropriate;Fol lows Commands [facility] Work Phone: 08-28-2023 Cognitive function Level Of Cons ciousness Awake;Alert;Appropriate;Fol lows Commands [facility] Work Phone: 08-27-2023 Cognitive function Level Of Cons ciousness Awake;Alert;Appropriate;Fol lows Commands [facility] Work Phone: 08-26-2023 Cognitive function Awake;Alert;A ppropriate;[facility] lows Commands [facility] Work Phone: 08-25-2023 Cognitive function Awake;Alert;A ppropriate;[facility] lows Commands [facility] Work Phone: 08-24-2023 Cognitive function Voice/Name [facility] Work Phone: 08-23-2023 Cognitive function Voice/Name [facility] Work Phone: 08-22-2023 Cognitive function Voice/Name [facility] Work Phone: 08-19-2023 Cognitive function Awake;Alert;A ppropriate;[facility] lows Commands [facility] Work Phone: 08-17-2023 Cognitive function Awake;Alert;A ppropriate;[facility] lows Commands [facility] Work Phone: 08-16-2023 Cognitive function Voice/Name [facility] Work Phone: 08-15-2023 Cognitive function Awake;Alert;A ppropriate;[facility] lows [facility] Work Phone: 08-12-2023 Cognitive function Voice/Name [facility] Work Phone: 08-10-2023 Cognitive function Voice/Name [facility] Work Phone: 08-09-2023 Cognitive function Voice/Name [facility] Work Phone: 08-08-2023 Cognitive function Awake;Alert;A ppropriate;Fol lows Commands [facility] Work Phone: 08-06-2023 Cognitive function Level Of Cons ciousness Awake;Alert;Appropriate;Fol lows Commands [facility] Work Phone: 08-05-2023 Cognitive function Voice/Name [facility] Work Phone: 11-12-2022 Because of a physica l, mental, or emotional condition, do you have serious difficulty concentrating, remembering, or making decisions No 11/12/2022 2:58 PM Vero Arriaga, REINIER [facility] Clinical Notes 05-19-2015 to 08-09-2025 Katina William APRN-[facility] - 08/09/2025 9:45 AM EDTNasoco Thibodeaux - 08/09/2025 9:45 AM EDTPatient Marshall Joe CNP - 07/09/2025 11:30 AM EDBenton Burris - 07/09/2025 11:30 AM EDT Note Date & Type Note Facility 08-09-2025 History of Presen t illness Narrative HPI: Elena Mcgill [place] Presents for evaluation and treatment of low [...] PT: completed 6 weeks of PT at [facility] 03/17 without benefit. Labs: 04/04/25 Cr 0.65 [...] use completely. YOAN Wagner HPI: Elena Mcgill [place] Presents for evaluation and treatment of low [...] dysuria or frequency documented in this encounter [employer] [facility] 08-09-2025 Instructions Shalonda Ward LPN - [...] are extremely rare. documented in this encounter [facility] 07-09-2025 History of Presen t illness Narrative [...] PT: completed 6 weeks of PT at [facility] 03/17 without benefit. Labs: 04/04/25 Cr 0.65 [...] dysuria or frequency documented in this encounter [facility] 07-09-2025 Instructions Rosalee Nguyen RN - 07/09/2025 11:30 AM EDT Please ensure you take the baclofen (muscle relaxant) 6 hours apart from your valium. The following attachments cannot be sent through Care Everywhere.Baclofen (Maldivian)documented in this encounter [facility] 06-27-2025 History of Presen t illness Narrative [...] 45-59 ml/min CLL (chronic lymphocytic leukemia) 2011 THDPS-09-Rhdjmmth on 09-30-2020 Depression Diffuse non-Hodgkin's lymphoma chemotherapy [...] ENDOSCOPY KNEE REPLACEMENT Right 05/2015 done at [place]--CC ARTHROPLASTY KNEE TOTAL Right 04/2015 INSERTION PICC [...] Assessment: Physical Exam documented in this encounter [facility] 06-20-2025 History of Presen t illness Narrative [...] obstructive pulmonary disease, unspecified COPD type Esophagitis, [place] grade A Obesity (BMI 30.0-34.9) Idiopathic chronic [...] contralateral eye Lumbar foraminal stenosis History of MEXND-14-Kaqmtivc 09-30-2020 Uterine leiomyoma, unspecified location Atherosclerosis of [...] will call for Dr. Garza notes from [facility] and alaina in with him. Schedule soon [...] Risks discussed. Alaina with Dr. Garza at [facility]. Alaina 09-12-25 for Follow-up, sooner prn. Alaina 09-13-[address] Ciro Lyles. Alaina 11-05-[address] Calderon. Alaina with Cardiology Dr. Brian Brush for Watchman alaina. Alaina 11-07-[address] Davison. Alaina all labs, UA, Vit D, A1C, Mg, PTH, Fe, B1, B6,, B12, Folate, Free T4, UA CR and UA for micro-albumin in . Alaina with Dr. Philip at [facility]. Alaina 3-D mammogram in . Al[place]a Carotid doppler in and if stable will repeat q 5 years thereafter. [place] DEXA in . Alaina with [employer] Dr. Keshawn Nunez for q 2 years [...] choosing Dr. Fernie Paredes s Office at [facility] for your healthcare needs. The patients' entire past medical, surgical, family, social history, allergies, medications, recent labs, recent imaging and networks computer consultant letters were reviewed and updated. ASSESSMENT [...] obstructive pulmonary disease, unspecified COPD type Esophagitis, [place] grade A Obesity (BMI 30.0-34.9) Idiopathic chronic [...] contralateral eye Lumbar foraminal stenosis History of DVBBU-58-Vtuwahpy 09-30-2020 Uterine leiomyoma, unspecified location Atherosclerosis of [...] follow- up instructions. Fernie Paredes DO [address] [address] This note is electronically signed in the [...] for this visit. documented in this encounter [facility] 06-20-2025 Miscellaneous Notes Addended by: FERNIE PAREDES on: 06/20/2025 02:31 PM Modules accepted: Orders documented in this encounter [facility] 06-20-2025 Note Addended by: FERNIE PAREDES on: 06/20/2025 02:31 PM Modules accepted: Orders [facility] 06-20-2025 Evaluation note Diagnosis Type 2 diabetes [...] obstructive pulmonary disease, unspecified COPD type Esophagitis, [place] grade A Obesity (BMI 30.0-34.9) Obesity, unspecified [...] lumbar region, without neurogenic claudication History of PVCCS-59-Cphvmbbd 09-30-2020 Uterine leiomyoma, unspecified location Atherosclerosis of [...] without residual deficits documented in this encounter [facility]08-07-2025 History of Present illness Narrative* Francesca Ortiz [...] 45-59 ml/min CLL (chronic lymphocytic leukemia) 2011 PNOQF-14-Vivcqdth on 09-30-2020 Depression Diffuse non-Hodgkin's lymphoma chemotherapy [...] ENDOSCOPY KNEE REPLACEMENT Right 05/2015 done at [place]--CC ARTHROPLASTY KNEE TOTAL Right 04/2015 INSERTION PICC [...] was prepped with chlorhexidine. documented in this [facility]08-07-2025 Instructions* Patient Instructions* Dawn Uriarte DPM - [...] and repeat 3 times. documented in this [facility]07-30-2025 Instructions* Patient Instructions* Ciro Lyles MD - 05/22/2025 11:32 AM EDT Systane Complete solution instill 1 drop 3 times daily Both Eyes. If you have any questions please contact our office at [phone]. After office hours or on the weekend, please call Dr. Lyles on his cell phone at [phone]. [facility] NoteHNO ID: [id number] Author: CIRO LYLES MD Service: ? Author [...] ICD9: 377.10, ICD10: H47.20 Monitor [facility] History of Present illness Narrative* Ciro [...] Monitor Ciro Lyles MD.opht [facility] History of Present illness Narrative* Nilay Mtz [...] 45-59 ml/min CLL (chronic lymphocytic leukemia) 2012 DMOQM-57-Deuzgwtk on 09-30-2020 Depression Diffuse non-Hodgkin's lymphoma chemotherapy [...] ENDOSCOPY KNEE REPLACEMENT Right 05/2015 done at [place]--CC ARTHROPLASTY KNEE TOTAL Right 04/2015 INSERTION PICC [...] SIJ prior to fusion with Dr Stephens [facility]: no prior medications reported Imagin05/06/25 lumbar xray [...] PT: completed 6 weeks of PT at [facility] 03/17 without benefit Labs: 04/04/25 Cr 0.65 [...] back pain and lumbar stenosis with NC -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 Sincerely, YOAN Wagner [facility] Instructions* Patient Instructions* Linda Wilkerson, CAFETERIA MONITOR - 05/20/2025 1:00 PM EDT Images from [...] you. How to do the exercises Single tbtd-zq-bgony stretch Lie on your back with your [...] May 23, 2024 Content Version: 14.3 2023 [employer]. Care instructions adapted under license by your healthcare professional. If you have questions about a medical condition or this instruction, always ask your healthcare professional. [employer] disclaims any warranty or liability for your use of this information. [facility] NotePROCEDURE: XR TOE 4TH LEFT 2+ VIEWS COMPARISON: None. HISTORY: pain and swelling 4th toe FINDINGS: BONES:No fracture, acute abnormality, or significant arthropathy. SOFT TISSUES:Negative. No visible soft tissue swelling. EFFUSION:None visible. OTHER: Negative. IMPRESSION: [facility] History of Present illness Narrative* Joycelyn Calhoun [...] 45-59 ml/min CLL (chronic lymphocytic leukemia) 2011 HOVAZ-13-Jymfllib on 09-30-2020 Depression Diffuse non-Hodgkin's lymphoma chemotherapy [...] ADD-ON PX Left 12/16/2022 Laterality: Left; Surgeon: Isrela Sigala MD; Location: [facility] SUSPENSION [...] ENDOSCOPY KNEE REPLACEMENT Right 05/2015 done at [place]--CC ARTHROPLASTY KNEE TOTAL Right 04/2015 INSERTION PICC [...] Rtc in 2 weeks documented in this encounterLake[facility]07-23-2025 NoteDate of Procedure 05/15/2025. [employer] Information Research & Analytics Manager: YURIY. C/D Ratio Right Eye 0.5. Left Eye 0.6. Disc Right Eye Cupping. Left Eye Pallor. Macula Right Eye Normal. Left Eye Normal. Periphery Right Eye Normal. Left Eye Normal.[id number] NoteDate of Procedure 05/15/2025 Crockett Protocol Safety Checklist A moment of CARE [...] Home Going Prescription Patient has drops at home.[facility]07-23-2025 Instructions* Patient Instructions* Ciro Lyles MD - [...] THE LASER HURT? Dr Lyles or his inventory control assistant will administer anesthetic drops into your [...] any questions please contact our office at [phone]. After office hours or on the weekend, please call Dr. Lylse on his cell phone at [phone]. documented in this encounterKind[facility]07-23-2025 NoteHNO ID: [id number] Author: CIRO LYLES MD Service: ? Author [...] and agree with all of its relevant components.[facility]07-23-2025 History of Present illness Narrative* [...] its relevant c omponents. documented in this encounterKindred [facility]07-18-2025 History of Present illness Narrative* Myrtle Georges [...] patient denies CLL (chronic lymphocytic leukemia) 2011 WCJYP-03-Magdtdix on 09-30-2020 Depression Diffuse non-Hodgkin's lymphoma chemotherapy [...] Laterality: Left; Surgeon: Eduardo Muñoz MD; Location: [facility] INTERVENTIONAL RADIOLOGY (VIR) EGD W/ DILATION BALLOON N/A 06/30/2018 Laterality: N/A; Surgeon: Indra Parrish DO; Location: [facility] EGD DIAGNOSTIC N/A 04/07/2018 Laterality: N/A; Surgeon: Wilner Leigh MD; Location: [facility] COLONOSCOPY DIAGNOSTIC N/A 04/07/2018 Laterality: N/A; Surgeon: Wilner Leigh MD; Location: [facility] KNEE REPLACEMENT Right 05/2015 done at [facility]-CC ARTHROPLASTY KNEE TOTAL Right 04/2015 INSERTION [...] 2.5 mg 2 tabs, BID- Lot # [id number] 08.15, Disp: 56 tablet, Rfl: 0 buPROPion [...] There is no significant central canal and zrqi-tn-ggvwzmhg left-sided foraminal narrowing IMPRESSION: MODERATE MULTILEVEL DEGENERATIVE [...] Please note Portions of this note utilized [employer] dictation software, please excuse any typographical or grammatical errors. documented in this encounterLakehealth [facility]wood [facility] Center06-13-2025 Physician Emergency department Note* Liang Simmons, DO [...] Complaint Patient presents with Suicidal Arrives via [facility] [place], pt reportedly attempted suicide yesterday but was [...] of signout we were awaiting: Bed at [facility] ED Course as of 04/05/25 0720 TueApr [...] denies any alcohol withdrawal symptoms. Placed in [facility] with p.o. Ativan protocol which will address her alcohol withdrawal symptoms and her benzodiazepine withdrawal. She has been pink slipped and accepted for transfer to [facility] in [place]. Will continue to closely monitor patient while [...] 04/05/25 0719 Liang Simmons DO 04/05/25 0720 [facility] Work Phone: 1(324) 630-386206-13-2025 Emergency department Note* Liang Simmons DO - [...] Complaint Patient presents with Suicidal Arrives via [facility] [place], pt reportedly attempted suicide yesterday but was [...] of signout we were awaiting: Bed at [facility] ED Course as of 04/05/25 0720 TueApr [...] denies any alcohol withdrawal symptoms. Placed in [facility] with p.o. Ativan protocol which will address her alcohol withdrawal symptoms and her benzodiazepine withdrawal. She has been pink slipped and accepted for transfer to [facility] in [place]. Will continue to closely monitor patient while [...] Complaint Patient presents with Suicidal Arrives via [facility] [place], pt reportedly attempted suicide yesterday but was [...] treatment. The patient will be admitted to [facility]. History provided by: Patient and police Patient [...] compliance with prescribed medication. Contact the performing [facility] laboratory to add-on definitive confirmatory testing if [...] data recorded Medical Decision Making Transfer to [facility] Procedure Procedures [1] No past medical history on file. [2] No past surgical history on file. [3] No family history on file. [4] Social History Tobacco Use Smoking status: Not on file Smokeless tobacco: Not on file Substance Use Topics Alcohol use: Not on file Drug use: Not on file Geronimo Harper DO 04/05/25 0332 documented in this [facility] Work Phone: 1(690) 563-409106-13-2025 Physician Emergency department Note* Geronimo Harper DO - 04/05/2025 1:35 AM EDT HPI Chief Complaint [facility] yesterday but was [...] treatment. The patient will be admitted to [facility]. History provided by: Patient and police Patient [...] compliance with prescribed medication. Contact the performing [facility] laboratory to add-on definitive confirmatory testing if [...] data recorded Medical Decision Making Transfer to [facility] Procedure Procedures [1] No past medical history on file. [2] No past surgical history on file. [3] No family history on file. [4] Social History Tobacco Use Smoking status: Not on file Smokeless tobacco: Not on file Substance Use Topics Alcohol use: Not on file Drug use: Not on file Geronimo Harper DO 04/05/25 0332 [facility] Work Phone: 1(361) 483-624006-03-2025 History of Present illness Narrative* Fernie Paredes [...] disease without esophagitis Odynophagia Fatty liver Esophagitis, [place] grade A Esophageal stenosis Duodenal diverticulum Chronic [...] of cataract extraction, unspecified laterality History of WBXHZ-51-Hnayywiz 09-30-2020 History of ETOH abuse S/P total [...] for micro- albumin on approx 06-11-25 at [facility] lab. Alaina 09-11-[address] Naty Bhakta at [facility] and get HD Flu same day with her. Alaina 09-13-[address] Frandy Lyles. Alaina with Dr. Tomasa Brush for Watchman alaina. Alaina 10-30-[address] Davison. Alaina 11-16-[address] Calderon. Alaina 11-13-25 with Shi Son NP. Alaina 3-D mammogram in . Alaina with Dr. Philip at [facility]. Alaina Carotid doppler in and if [...] choosing Dr. Fernie [facility] s [facility] for your hea lthcare needs. The patients' entire past medical, surgical, family, social history, allergies, medications, recent labs, recent imaging and networks computer consultant letters were reviewed and updated. ASSESSMENT [...] disease without esophagitis Odynophagia Fatty liver Esophagitis, [place] grade A Esophageal stenosis Duodenal diverticulum Chronic [...] of cataract extraction, unspecified laterality History of TOAOY-29-Efclrxvf 09-30-2020 History of ETOH abuse S/P total [...] follow- up instructions. Fernie Paredes DO [address] [address] This note is electronically signed in the electronic medical record. documented in this [facility]06-03-2025 Instructions* Patient Instructions* Fernie Paredes DO - 03/26/2025 3:15 PM EDT Do fasting, well hydrated labs on approx. 06-11-25 documented in this [facility]05-02-2025 History of Present illness Narrative* Keshawn Nunez MD - 02/22/2025 11:00 AM EDT [facility] Gynecology [facility] Woman Visit Ms. Elena Galeano is a 65 y.o. who presents for her annual exam. Ms. Galeano has her general healthcare managed by Dr. Fernie Paredes. Since her last well woman exam, she has had bilateral joint surgery, bilateral knee. 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 Patient is postmenopausal. Menses: Menopause Menarche: Age 10 Menopause: Age ~53 Last Pap: NILM (02/03/23) History of abnormal Paps: Denies Sexual activity: Partnered for 50 years. Last active ~2014. Contraception: Menopause, abstinence History of STIs: Denies Family Mobile Ui Designer Cancer: Maternal aunt with breast cancer. Mammogram: BIRADS 1 (01/23/24). Scheduled Colonoscopy: Normal (04/07/2018). 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 She [...] tenderness. Mobile, normal sized uterus. Rectal: Deferred Inspector Weights And Measures:Miri ASSESSMENT AND PLAN Ms. Elena Galeano is [...] 02/22/2025 Keshawn Nunez MD documented in this [facility]04-15-2025 History of Present illness Narrative* Danielle Mccall [...] 45-59 ml/min CLL (chronic lymphocytic leukemia) 2011 GVWHX-84-Phpesifo on 09-30-2020 Depression Diffuse non-Hodgkin's lymphoma chemotherapy [...] Laterality: N/A; Surgeon: Wilner Leigh MD; Location: [facility] ENDOSCOPY KNEE REPLACEMENT Right 05/2015 done at [place]--CC ARTHROPLASTY KNEE TOTAL Right 04/2015 INSERTION PICC [...] Resource Strain: Low Risk (11/10/2022) [facility] Overall Financial Resource Strain (CARDIA) Difficulty of [...] pending if symptoms recur documented in this [facility]03-24-2025 Miscellaneous Notes* Nursing Notes - Dragan Pardo RN - 01/14/2025 7:00 AM EDT Manometry placed with moderate difficulty. Pt tolerated well. remained in the room. documented in this [facility]03-24-2025 Nurse Note* Nursing Notes - Dragan Pardo RN - 01/14/2025 7:00 AM EDT Manometry placed with moderate difficulty. Pt tolerated well. remained in the room. [facility]03-10-[facility] History of Present illness Narrative* Fernie Paredes, [...] Folate deficiency Elevated LFTs Fatty liver Esophagitis, [place] grade A Esophageal stenosis Duodenal diverticulum Chronic [...] right History of ETOH abuse History of VBWKV-46-Mrxhouga 09-30-2020 History of cataract extraction, unspecified laterality [...] Scheduling. Alaina 12-05-24 with Celestine Medrano at [facility] instead of Dr. Philip and q 12 months. Alaina 02-08-25 with 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 NP for PAP. Alaina 03-25-25, sooner prn. Alaina with CARO Guzman. Alaina 09-11-[address] Gita Bhakta at [facility]. Alaina with Brian Brush for Watchman alaina. Alaina 10-30-[address] Davison. Alaina 11-06-[address] Calderon. Alaina 11-13-24 with Shi Son NP. Alaina [...] choosing Dr. Fernie gurrola s Office at [facility] for your healthcare needs. The patients' entire [...] Folate deficiency Elevated LFTs Fatty liver Esophagitis, [place] grade A Esophageal stenosis Duodenal diverticulum Chronic [...] right History of ETOH abuse History of XBHZG-75-Weaouhxg 09-30-2020 History of cataract extraction, unspecified laterality Family history of hypertension in mother Family history of Alzheimer's disease-Father Encounter for screening mammogram for breast cancer Asymptomatic postmenopausal state Orders Placed This Encounter Procedures US CAROTID DUPLEX Copy to Dr. Wm. Calderon and Dr. Brian Brush at [facility] Cardiology Standing Status: Future Expected Date: 12/31/2024 Expiration Date: 12/31/2025 Reason for Exam: Bilateral carotid stenosis MAMMO SCREENING WITH ALEXANDER BILATERAL Standing Status: Future Expected Date: 12/31/2024 Expiration Date: 12/31/2025 Reason for Exam: Encounter for scvreening Mammogram Preferred Location: [facility] [4] BONE DENSITY AXIAL (HIP, PELVIS, [...] follow- up instructions. Fernie Paredes DO [address] [address] This note is electronically signed in the electronic medical record. documented in this encounterLakehealth [facility] Center03-05-2025 History of Present illness Narrative* Luisa Cano [...] 12/26/2024 10:33 AM Patient: Elena Galeano MR#: [id number] : 1960 Age: 64 y.o. Referring Physician: [...] eye CKD stage 3a, GFR 45-59 ml/min BEREL-18-Bbsgkmup on 09-30-2020 Depression Diffuse non-Hodgkin's lymphoma chemotherapy [...] ENDOSCOPY KNEE REPLACEMENT Right 05/2015 done at [place]--CC ARTHROPLASTY KNEE TOTAL Right 04/2015 INSERTION PICC [...] by Nasal route once for 1 dose. Midway into the nose as directed. Call 911. [...] arise. All pertinent portions of the clinical lead performance support analyst documentation was reviewed and agree. Shi Son I have reviewed the findings of the clinical lead performance support analyst and agree with their assessment. Shi Son [...] 12/26/2024 10:33 AM Patient: Elena Galeano MR#: [id number] : 1960 Age: 64 y.o. Referring Physician: [...] eye CKD stage 3a, GFR 45-59 ml/min XDQKP-50-Yterhjoy on 09-30-2020 Depression Diffuse non-Hodgkin's lymphoma chemotherapy [...] Laterality: Left; Surgeon: Eduardo Muñoz MD; Location: [facility] INTERVENTIONAL RADIOLOGY (VIR) EGD W/ DILATION BALLOON N/A 06/30/2018 Laterality: N/A; Surgeon: Indra Parrish DO; Location: [facility] EGD DIAGNOSTIC N/A 04/07/2018 Laterality: N/A; Surgeon: Wilner Leigh MD; Location: [facility] COLONOSCOPY DIAGNOSTIC N/A 04/07/2018 Laterality: N/A; Surgeon: Wilner Leigh MD; Location: [facility] KNEE REPLACEMENT Right 05/2015 done at [place]--CC ARTHROPLASTY KNEE TOTAL Right 04/2015 INSERTION PICC [...] by Nasal route once for 1 dose. Midway into the nose as directed. Call 911. [...] is allergic to nsaids. documented in this encounterLake[facility]03-04-2025 History of Present illness Narrative* Danielle Mccall [...] 45-59 ml/min CLL (chronic lymphocytic leukemia) 2011 MUWTR-62-Pkrhhaay on 09-30-2020 Depression Diffuse non-Hodgkin's lymphoma chemotherapy [...] TRANSFIXING DEVICE Right 05/03/2024 Laterality: Right; Surgeon: Israel Sigala MD; Location: [facility] OR FLUOROSCOPY [...] ENDOSCOPY KNEE REPLACEMENT Right 05/2015 done at [place]--CC ARTHROPLASTY KNEE TOTAL Right 04/2015 INSERTION PICC [...] Resource Strain: Low Risk (11/10/2022) [facility] Overall Financial Resource Strain (CARDIA) Difficulty of [...] by Nasal route once for 1 dose. Midway into the nose as directed. Call 911. [...] manometrics if symptoms persist documented in this encounterLakehealth [facility] Center02-12-2025 History of Present illness Narrative* Marina Braun [...] 12/05/2024 2:28 PM Patient: Elena Galeano MR#: [id number] : 1960 Age: 64 y.o. Referring Physician: [...] eye CKD stage 3a, GFR 45-59 ml/min GJRPT-26-Vevkatkd on 09-30-2020 Depression Diffuse non-Hodgkin's lymphoma chemotherapy [...] ENDOSCOPY KNEE REPLACEMENT Right 05/2015 done at [place]--CC ARTHROPLASTY KNEE TOTAL Right 04/2015 INSERTION PICC [...] by Nasal route once for 1 dose. Midway into the nose as directed. Call 911. [...] Education provided on importance of compliance with SAJI hose, larger size provided to patient today. [...] recommendations. I will send in ERx for [place] at this time. She was advised to [...] arise. All pertinent portions of the clinical lead performance support analyst documentation was reviewed and agree. Shi Son I have reviewed the findings of the clinical lead performance support analyst and agree with their assessment. Shi Son [...] 12/05/2024 2:28 PM Patient: Elena Galeano MR#: [id number] : 1960 Age: 64 y.o. Referring Physician: [...] eye CKD stage 3a, GFR 45-59 ml/min RNOOK-30-Ixpzvkyv on 09-30-2020 Depression Diffuse non-Hodgkin's lymphoma chemotherapy [...] Laterality: Left; Surgeon: Isreal Sigala MD; Location: [facility] GUIDANCE FLUOROSCOPIC NEEDLE OR CATHETER [...] ENDOSCOPY KNEE REPLACEMENT Right 05/2015 done at [place]--CC ARTHROPLASTY KNEE TOTAL Right 04/2015 INSERTION PICC [...] by Nasal route once for 1 dose. Midway into the nose as directed. Call 911. [...] is allergic to nsaids. documented in this encounterLakehealth [facility] Center01-21-2025 Miscellaneous Notes* Nursing Notes - Annalee Lindsay [...] Patient to be transported via wheelchair to [facility]. * Plan of Care - Annalee Lindsay [...] modification for fall/injury prevention Outcome: Progressing Intervention: Crockett Fall Precuations Flowsheets (Taken 11/12/2024 1621) Crockett Fall Precautions: yes * Nursing Notes - [...] needs at this time. On admission to [facility] MED SURG 3RD FLOOR, from home [...] Source Information Source patient Contact Information This Web Master is Primary Ticketer/SW Yes Ticketer Name Myah Rivera RNcorrugated sheet material sheeter's Phone Number [phone] Living Environment Lives With spouse ( Ashu) [...] Financial Concerns none Initial Discharge Planning DME (INDUSTRIAL ARTS TEACHER) Walker (has a FWW) Patient Goal for Discharge Return home with assistance from family and friends (travel) Expected Discharge Disposition Home (OP therapy [place] / [facility]) Anticipated Services at Discharge Physical Therapy;Outpatient follow up;Outpatient rehab services Transportation Available car;family or friend will provide Assessment/Concerns to be Addressed Concerns To Be Addressed no discharge needs identified;denies needs/concerns at this time CM met with patient this date to discuss post-surgical discharge plans. Patient states the plan is to discharge home with family/friends assistance and OP therapy with [facility]. Patient has a wheeled walker. Patient denies any other questions or needs at this time. CM to continue to follow and assist with discharge plans. documented in this encounterLakehealth [facility]01-21-2025 Nurse Note* Nursing Notes - Annalee Lindsay [...] Patient to be [facility] [id number] Plan of care note* Plan of Care [...] for fall/injury prevention Outcome: Adequate for Discharge LD [facility] [employer] [id number] Progress note* Therapy Note - Dawn Soria [...] transfers, and mobility to improve functional independence. [facility] [employer] [id number] History of Present illness Narrative* Myah Rivera RN - 11/13/2024 8:30 AM EST Met with patient as follow-up on this anticipated discharge day. States the plan remains to discharge home with family/friends assistance [facility] follow-up scheduled for 12/05 230p. [...] 8 oz) 10/29/24 97.5 kg (215 lb) [place] body weight: 57 kg (125 lb 10.6 [...] 3.30 (L) 11/13/2024 B12 956 (H) 07/09/2024 NORD15BGP 37.6 07/09/2024 FOLATE >20.0 (H) 07/09/2024 PMH & PSH: Past Medical History: Diagnosis Date A-fib watchman device place per [facility] Arrhythmia Arthritis ASCUS of cervix with negative high risk HPV B12 deficiency Carotid stenosis, bilateral-Right 30%, and left 60% Central retinal artery occlusion of left eye CKD stage 3a, GFR 45-59 ml/min CLL (chronic lymphocytic leukemia) 2011 BFAOP-20-Jrhjgxxt on 09-30-2020 Depression Diffuse non-Hodgkin's lymphoma chemotherapy [...] ENDOSCOPY KNEE REPLACEMENT Right 05/2015 done at [place]--CC ARTHROPLASTY KNEE TOTAL Right 04/2015 INSERTION PICC [...] 45-59 ml/min CLL (chronic lymphocytic leukemia) 2012 MOWJS-35-Piaqvlir on 09-30-2020 Depression Diffuse non-Hodgkin's lymphoma chemotherapy [...] ENDOSCOPY KNEE REPLACEMENT Right 05/2015 done at [place]--CC ARTHROPLASTY KNEE TOTAL Right 04/2015 INSERTION PICC [...] 45-59 ml/min CLL (chronic lymphocytic leukemia) 2012 YPEYG-43-Ordfwgfj on 09-30-2020 Depression Diffuse non-Hodgkin's lymphoma chemotherapy [...] ENDOSCOPY KNEE REPLACEMENT Right 05/2015 done at [place]--CC ARTHROPLASTY KNEE TOTAL Right 04/2015 INSERTION PICC [...] hand held shower head, high rise toilet, metallographic technician, sock aid, long handled shoe horn, long [...] home with family/friends assistance and OPtherapy at [facility], first appt scheduled 11/14 930a. Paperwork faxed to [facility] at this time. Patient has a wheeled [...] and call back information. documented in this [facility]01-21-2025 Hospital course Narrative* Washington Maxwell MD - [...] by Nasal route once for 1 dose. Midway into the nose as directed. Call 911. [...] 3 days or take action. Follow-up: Other [place] [phone] Follow up First appt 11/14 930a, arrive 15 minutes before appt time Upcoming Appointments (up to five)-Some appointments for Medical Center outpatient clinics or diagnostic testing locations are not displayed below Next 5 Appointments Provider Department Dept Phone 11/29/2024 1:00 PM [facility] FLUOR[facility], [facility]; [facility], [facility] Radiology [phone] 11/29/2024 1:00 PM Vero Lange [facility] Speech Therapy [phone] 12/31/2024 3:00 PM Fernie Paredes [facility] Family Medicine [phone] 02/08/2025 2:20 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 BLANKS [phone] 09/11/2025 11:20 AM Naty Bhakta Division of Hematology & Oncology at [facility] Arrive at: Arrive to First Floor Registration [phone] Displaying the next 5 appointments. This patient has additional appointments scheduled. documented in this encounterLakehealth [facility]01-20-2025 Consult note* Washington Maxwell MD - 11/12/2024 5:11 PM ESTAssociated Order(s): IP CONSULT TO GENERAL MEDICINE Medical consultation Patient is a 64-year-old female who presents for total knee arthroplasty. She was at her baseline state of health prior to surgery and was medically optimized by her primary care provider, food prep worker, and lockstitch cup setter. Preoperative testing notable for a blood sugar [...] 45-59 ml/min CLL (chronic lymphocytic leukemia) 2011 NPAIC-75-Doqgrpll on 09-30-2020 Depression Diffuse non-Hodgkin's lymphoma chemotherapy [...] ENDOSCOPY KNEE REPLACEMENT Right 05/2015 done at [place]--CC ARTHROPLASTY KNEE TOTAL Right 04/2015 INSERTION PICC [...] Resource Strain: Low Risk (11/10/2022) [facility] Overall Financial Resource Strain (CARDIA) Difficulty of [...] minutes total time. Washington Maxwell MD 11/12/2024 [facility]01-20-2025 Consult note* Washington Maxwell MD - 11/12/2024 5:11 PM ESTAssociated Order(s): IP CONSULT TO GENERAL MEDICINE Medical consultation Patient is a 64-year-old female who presents for total knee arthroplasty. She was at her baseline state of health prior to surgery and was medically optimized by her primary care provider, food prep worker, and lockstitch cup setter. Preoperative testing notable for a blood sugar [...] 45-59 ml/min CLL (chronic lymphocytic leukemia) 2011 CLULC-65-Igiymbtl on 09-30-2020 Depression Diffuse non-Hodgkin's lymphoma chemotherapy [...] ENDOSCOPY KNEE REPLACEMENT Right 05/2015 done at [place]--CC ARTHROPLASTY KNEE TOTAL Right 04/2015 INSERTION PICC [...] Resource Strain: Low Risk (11/10/2022) [facility] Overall Financial Resource Strain (CARDIA) Difficulty of [...] Washington Maxwell MD 11/12/2024 documented in this [facility]01-20-2025 Plan of care note* Plan of Care - Annalee Lindsay RN - 11/12/2024 4:24 PM EST Problem: Fall Injury Risk Goal: Fall/Trauma/Injury Risk: Absence of Trauma/Injury/Falls Description: Patient will demonstrate the desired outcomes. Outcome: Progressing Goal: Knowledge of risk factors/behavior modification Description: Knowledge of risk factors/behavior modification for fall/injury prevention Outcome: Progressing Intervention: [place]ck[place] Fall Precuations Flowsheets (Taken 11/12/2024 1621) [place]ckett Fall Precautions: yes [facility]01-20-2025 Nurse Note* Nursing Notes - Annalee Lindsay RN - 11/12/2024 4:23 PM EST No change noted from previous assessment by this RN unless otherwise detailed in coordinating flow sheets. Patient denies any needs at this time. [facility]01-20-2025 Hospital Discharge instructions* Medications* Annalee Lindsay [...] PM EST Dr. Blackwood's office number is [phone], option #2 for the nurse. We want to hear from you if you are having any concerns related to the surgery. If after hours, please be assured that we are still available to you! Simply contact the [facility] hospital number, and ask for Dr. [...] be sent through Care Everywhere. * Acetaminophen (Maldivian) * Aspirin (Maldivian) * celecoxib (Maldivian) * Docusate Oral Capsule (DOCUSATE - ORAL) (Maldivian) * naloxone (nasal) (Maldivian) * oxycodone (Maldivian) * multivitamins and minerals (Maldivian) documented in this [facility] Nurse Note* Nursing Notes - Annalee Lindsay RN - 11/12/2024 2:25 PM EST Patient returned from recovery. Patient's vitals and assessment stable at this time. Patient drowsyand in pain. Patient medicated per DEC. Patient denies any other needs at this time. [facility]01-[facility] Nurse Note* Nona Acharya RN - 11/12/2024 [...] and stable with ROMAN Mckeon and RN Loan Underwriter. Hand over given to REINIER Castellano at 1347H * Graciela Torres RN - 11/12/2024 11:52 AM EST OR 2 Temperature:66.4F Humidity: 40.1% documented in this [facility]01-20-2025 Nurse Surgical operation note* Nnoa Acharya RN - 11/12/2024 2:07 PM EST Patient transferred to room 3754 via bed in stable condition. Report given to REINIER Mantilla. Bed left inlocked and lowest position with side rails up x3. Call light given to patient. Monitors and alarms on and attached to patient. [facility]01-20-2025 Nurse Surgical operation note* Graciela Torres RN - 11/12/2024 1:35 PM EST Patient transported to PACU recovered and stable with ROMAN Mckeon and RN Loan Underwriter. Hand over given to REINIER Castellano at 1347H [facility]01-20-2025 Nurse Surgical operation note* Graciela Torres RN - 11/12/2024 11:52 AM EST OR 2 Temperature:66.4F Humidity: 40.1% [facility]01-20-2025 Nurse Note* Nursing Notes - Annalee Lindsay RN - 11/12/2024 10:20 AM EST Pt arrived to unit and oriented to unit policies, tv, phone, call light, bed and room. Pt assessed and stable at this time. Pre-op orders and checklist completed. Patient denies any needs at this time. On admission to [facility] MED SURG 3RD FLOOR, from home a dual RN initial assessment of skin condition was performed by Annalee Lindsay RN and Rosalee Jean RN. Skin Assessment: Skin within defined limits:Yes Chinedu Score: 19 LDA Added:No Annalee Lindsay RN [facility]01-09-2025 History of Present illness Narrative* Fernie [...] without esophagitis Folate deficiency Fatty liver Esophagitis, [place] grade A Esophageal stenosis Duodenal diverticulum Chronic [...] of cataract extraction, unspecified laterality History of ELUES-71-Wujnuayt 09-30-2020 History of ETOH abuse Family history [...] UA for micro-albumin on approx. 12-24-24 at [facility] lab. Alaina 12-31-24 as prior scheduled, and will order 2 year repeat Carotid Dopplerwhich prior showed 30% stenosis bilaterally in , sooner prn. Alaina 01-02-[address] Philip at [facility], and q 12 months. Alaina PAP in 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. Alaina 3-D Mammogram and DEXA in . Alaina 04-02-[address] Ciro Lyles. Alaina with CARO Guzman and we will call for last notes [id number]. Alaina 09-11-[address] Naty Bhakta, Oncology at [...] choosing Dr. Fernie [facility]aredes s [facility] for your healthcare needs. The patients' entire past medical, surgical, family, social history, allergies, medications, recent labs, recent imaging and networks computer consultant letters were reviewed and updated. ASSESSMENT & PLAN: Encounter Diagnoses Name Primary? Type 2 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 disease, without long-term current use of insulin Yes Hyperlipidemia LDL goal <70 Hyperthyroidism Hypertriglyceridemia Hypomagnesemia Hypoproteinemia Idiopathic chronic gout without tophus, unspecified site Vitamin D deficiency Hepatomegaly Odynophagia Gastroesophageal reflux disease without esophagitis Folate deficiency Fatty liver Esophagitis, [place] grade A Esophageal stenosis Duodenal diverticulum Chronic [...] of cataract extraction, unspecified laterality History of XAUGG-28-Lwzlippi 09-30-2020 History of ETOH abuse Family history [...] follow- up instructions. Fernie Paredes DO [address] [address] This note is electronically signed in the electronic medical record. documented in this [facility]01-09-2025 Instructions* Patient Instructions* Fernie Paredes DO - 11/01/2024 2:30 PM EST Do fasting, well hydrated labs on approx. 12-24-24 documented in this [facility]01-08-2025 History of Present illness Narrative* Fernando Davison MD - 10/31/2024 1:00 PM EST DAILY PROGRESS NOTE Admit Date: (Not on file) Date of Evaluation: :26 PM [facility] IMPRESSION AND PLAN: 63 y/o female with [...] LABS Labs-ABGs @ABGROUNDS@ Labs-CBC @CBCBRIEFROUNDS@ Labs-Chem 7(PMC) @[facility]@ Labs-Coags WBC (WHITE BLOOD COUNT) Date Value [...] THERAPUTIC RANGE 80-112 SEC Testing performed at [place], [place] [address] PROTEIN, TOTAL Date Value Ref Range Status [...] Skin: Warm and dry documented in this encounterLake[facility]01-06-2025 History of Present illness Narrative* Rose Mary Zepeda MA - 10/29/2024 2:15 PM EST Message sent to help desk to delete the EKG performed today due to a malfunction in EKG equipment. documented in this [id number] History of Present illness Narrative* Brian Brush CNP - 10/29/2024 1:30 PM EST [facility] STRUCTURAL CARDIOLOGY CLINIC NOTE HISTORY OF [...] pleasant 64-year-old female who follows with primary food prep worker Dr. Calderon with [facility] cardiology. She is status post 1-year [...] structural heart clinic Continue to follow with [facility] cardiology for primary cardiology needs. CARDIAC [...] No clubbing of fingers. Brian Brush, MSN, ASSEMBLER ARRANGER, HYDRAULIC PRESS SERVICER Interventional Cardiology/Structural Heart Disease Team [facility] documented in this [id number] [facility] STRUCTURAL CARDIOLOGY CLINIC NOTE HISTORY [...] astrid 64-year-old female who follows with primary food prep worker Dr. Calderon with [facility] cardiology. She is status post 1-year [...] structural heart clinic [facility]. CARDIAC [...] No clubbing of fingers. Brian Brush, MSN, ASSEMBLER ARRANGER, HYDRAULIC PRESS SERVICER Interventional Cardiology/Structural Heart Disease Team [facility] AUTHENTICATED BY BRIAN BRUSH, ON 10/29/2024 14:23:00[facility] [id number] Nurse Note* Blanquita Long RN - 10/29/2024 [...] 10:25 AM EST Snack given. * Blanquita Long RN - 10/29/2024 10:15 AM EST Received to bay. Appears without distress. DR. Ellis here to speak with pt and about results of procedure. documented in this encounterLake[facility]01-06-2025 Nurse Surgical operation note* Blanquita Long RN - 10/29/2024 10:[address] Ellis here to speak with pt again about procedure. [facility]01-06-[facility] Nurse Surgical operation note* Blanquita Long RN - 10/29/2024 10:55 AM EST Pt has tolerated sitting on side of cart without incident. Denies needs and appears without distress. Getting dressed for discharge home [facility]01-06-2025 Nurse Surgical operation note* Blanquita Long RN - 10/29/2024 10:46 AM EST Pt discharge instructions reviewed and provided to pt and with understanding voiced. Deniesneeds and appears without distress. [facility]01-06-2025 Nurse Surgical operation note* Blanquita Long RN - 10/29/2024 10:35 AM EST Assisted to sit on side of cart. Denies dizziness or nausea. Appears without distress. [facility]01-06-2025 Nurse Surgical operation note* Blanquita Long RN - 10/29/2024 10:25 AM EST Snack given. [facility]01-06-2025 Nurse Surgical operation note* Blanquita Long RN - 10/29/2024 10:15 AM EST Received to bay. Appears without distress. DR. Ellis here to speak with pt and about results of procedure. [facility]12-31-2024 History of Present illness Narrative* Danielle Mccall [...] 10/23/2024 8:00 AM EST EGD 10/29 * Delilah Ellis Jr., - 10/23/2024 8:00 AM EST [...] 45-59 ml/min CLL (chronic lymphocytic leukemia) 2012 [id number]-Euokhzgc on 09-30-2020 Depression Diffuse non-Hodgkin's lymphoma chemotherapy [...] Laterality: N/A; Surgeon: Wilner Leigh MD; Location: [facility] ONT ENDOSCOPY COLONOSCOPY DIAGNOSTIC N/A 04/07/2018 Laterality: N/A; Surgeon: Wilner Leigh MD; Location: [facility] ONT ENDOSCOPY KNEE REPLACEMENT Right 05/2015 done at [place]--CC ARTHROPLASTY KNEE TOTAL Right 04/2015 INSERTION PICC [...] Resource Strain: Low Risk (11/10/2022) [facility], [facility] Overall Financial Resource Strain (CARDIA) Difficulty of [...] by Nasal route once for 1 dose. [place] into the nose as directed. Call 911. [...] in coordination of care. documented in this encounterLake[facility] Center12-31-2024 Instructions* Patient Instructions* Caitlyn Carpenter LPN - [...] 3:00pm the day before your procedure, call [phone] documented in this encounterLakehealth [facility]12-23-2024 Nurse Note* Nursing Notes - Myah Rivera RN - 10/15/2024 10:30 AM EST 10/15/24 1030 Referral Information Arrived From home or self-care Information Source Information Source patient Contact Information This Web Master is Primary Ticketer/SW Yes Ticketer Name Myah Rivera RNcorrugated sheet material sheeter's Phone Number [phone] Living Environment Lives With spouse ( Ashu) [...] Financial Concerns none Initial Discharge Planning DME (INDUSTRIAL ARTS TEACHER) Walker (has a FWW) Patient Goal for Discharge Return home with assistance from family and friends (travel) Expected Discharge Disposition Home (OP therapy [place] / [place]) Anticipated Services at Discharge Physical Therapy;Outpatient follow up;Outpatient rehab services Transportation Available car;family or friend will provide Assessment/Concerns to be Addressed Concerns To Be Addressed no discharge needs identified;denies needs/concerns at this time CM met with patient this date to discuss post-surgical discharge plans. Patient states the plan is to discharge home with family/friends assistance and OP therapy with [facility] Therapy. Patient has a wheeled walker. Patient denies any other questions or needs at this time. CM to continue to follow and assist with discharge plans. [facility]12-17-[facility] History of Present illness Narrative* Fernie Paredes [...] esophagitis Folate deficiency Odynophagia Fatty liver Esophagitis, [place] grade A Esophageal stenosis Duodenal diverticulum Chronic [...] right History of ETOH abuse History of [id number]-35-Kifmliyv 09-30-2020 History of cataract extraction, unspecified laterality [...] for micro- albumin on approx 12-25-24 at [facility] lab and ordered today. Alaina 01-01-25, [...] in unless done sooner after sees Dr. Ellsi on 10-23-24. No PAP needed.Total time spent 38 minutes, excluding tests and procedures. Diet and lifestyle counseling was given, and care coordinated. OARRS report was received and assessed, and is consistent withthe medications prescribed. Thank you for choosing Dr. Fernie [facility]aredes s [facility]. The patients' entire past medical, surgical, family, social history, allergies, medications, recent labs, recent imaging and networks computer consultant letters were reviewed and updated. ASSESSMENT [...] esophagitis Folate deficiency Odynophagia Fatty liver Esophagitis, [place] grade A Esophageal stenosis Duodenal diverticulum Chronic [...] right History of ETOH abuse History of [id number]-83-Scebahmd 09-30-2020 History of cataract extraction, unspecified laterality Former smoker-Quit 2011 Family history of Alzheimer's disease-Father Family history of hypertension in mother Orders Placed This Encounter Procedures CBC, EDIF, PLATELET Copy to Dr. WM. Calderon, Dr. Fernando Davison, Dr. Naty Bhakta, Hematology Oncology at [facility] and Dr. Brian Brush at [facility] Cardiology Standing Status: Future Standing Expiration Date: [...] follow- up instructions. Fernie Paredes, DO [address] [phone] This note is electronically signed in the electronic medical record. documented in this [facility]12-17-2024 Instructions* Patient Instructions* Fernie Paredes DO - 10/09/2024 2:00 PM EST Do fasting, well hydrated labs on approx 12-25-24 documented in this [facility]12-10-2024 Instructions* Patient Instructions* Ciro Lyles MD - 10/02/2024 4:15 PM EST Please return in 6 months. If you have any questions please contact our office at [phone]. After office hours or on the weekend, please call Dr. Lyles on his cell phone at [phone]. documented in this encounterKind[facility]-2024 NoteDate of Procedure 10/02/2024. Family Advocate Information Research & Analytics Manager: ab. Quality Right Eye Good. Left Eye Good. NFL Interpretation Right Eye Normal. Left Eye Diffuse loss. Ganglion Cell Layer Thickness Right Eye Normal. Left Eye Diffuse loss. Interval Change Right Eye Stable. Left Eye Stable.[id number] NoteDate of Procedure 10/02/2024. C/D Ratio Right Eye 0.3. Left Eye 0.5. Disc Right Eye Cupping. Left Eye Atrophy.[id number] NoteHNO ID: [id number] Author: CIRO LYLES MD Service: ? Author [...] and agree with all of its relevant components.[facility]12-10-2024 History of Present illness Narrative* [...] of its relevant components. documented in this encounterKind[facility]11-27-2024 History of Present illness Narrative* YOAN Jaeger [...] stopped. She followed up with Cardiology at [facility] on 05/22/24. On 05/03, she had a [...] will continue to follow-up with Cardiology at [facility] #Health Maintenance - continue follow-up with PCP [...] and have discussed the patient with Lynette Ocasio CNP. I agree with the history, exam, [...] 1 year for follow-up. documented in this encounterMagruder [facility]11-27-2024 Instructions* Patient Instructions* Miri Vargas RN - 09/19/2024 11:20 AM EST YOUR PRIMARY TEAM Dr. Naty Echols CNP - Nurse Practitioner Sujit Thomason, RN - Primary Nurse Miri Vargas, RN- Secondary Nurse Please contact our office if you develop a temperature of 100.4 or greater. CONTACT NUMBERS Clinic phone: [phone] Clinic fax: [phone] MEDICAL RECORDS The Release of Information (KEVIN) area is staffed from 8:00 a.m. to 7:00 p.m. and is available for walk in requests from 8:00 a.m. to 4:30 p.m. [facility] is responsible for answering requests for copies of medical records from various requestors such as insurance companies, attorneys, hospitals and patients. Please note it can take up to 2 weeks to complete your request. [phone]; [phone] (fax). DISABILITY FORMS This category includes any [...] our team about the suggested recovery time. [employer] is a secure way to get access to your labs online. In most instances, your test results are released to your [employer] Parking [employer] account after your physician has reviewed them. [...] For non-emergent concerns, please send us a TeliApp message but describe your issue fully. As an example, tell us how long you've had the symptom, what makes it better or worse, what you've done for it already) and one of our nurses or nurse practitioners will respond kenneth. For questions or concerns regarding [employer]App access or technical dificulties, please call [phone] or toll free at . Results for [...] 2.35 Male: 0.83-3.57, Female: 1.16-3.51 K/uL Abs [place] Auto 0.64 Male: 0.24-0.93 Female: 0.22-0.87 K/uL Abs Eos Auto 0.04 Male: 0.00-0.48, Female: 0.00-0.42 K/uL Abs Baso Auto <0.04 Male: 0.00-0.09, Female: 0.00-0.15 K/uL documented in this encounterMagruder Hospital11-07-2024 History of Present illness Narrative* Luisa [...] 08/30/2024 3:08 PM Patient: Elena Galeano MR#: [id number] : 1960 Age: 64 y.o. Referring Physician: [...] eye CKD stage 3a, GFR 45-59 ml/min [id number] on 09-30-2020 Depression Diffuse non-Hodgkin's lymphoma chemotherapy [...] ENDOSCOPY KNEE REPLACEMENT Right 05/2015 done at [place]--CC ARTHROPLASTY KNEE TOTAL Right 04/2015 INSERTION PICC [...] paternal aunt. Social History: Sarah's reports that Sarah quit smoking about 11 years ago. Sarah's [...] patellofemoral compartment, subchondral sclerosis, osteophyte formation, and tajn-cc-oobo contact. IMPRESSION: Severe symptomatic end-stage arthritis, left [...] of limb, and ultimately loss of life. residential expectations, risks and general implant survivorship were also discussed. Despite these risks, the patient would like to proceed with surgical planning. Today, we will initiate the pre-surgical process including nasal MRSA screening, scheduling an appointment for [facility] [place] and the potential surgical date, and reviewing [...] 45-59 ml/min CLL (chronic lymphocytic leukemia) 2012 SZNYO-42-Jluudkcg on 09-30-2020 Depression Diffuse non-Hodgkin's lymphoma chemotherapy [...] ENDOSCOPY KNEE REPLACEMENT Right 05/2015 done at [place]--CC ARTHROPLASTY KNEE TOTAL Right 04/2015 INSERTION PICC [...] Resource Strain: Low Risk (11/10/2022) Received from [facility] Overall Financial Resource Strain (CARDIA) Difficulty of Paying Living Expenses: Not hard at all Food Insecurity: No Food Insecurity (11/10/2022) Received from [facility] Hunger Vital Sign Worried About Running Out of Food in the Last Year: Never true Ran Out of Food in the Last Year: Never true Transportation Needs: No Transportation Needs (11/10/2022) Received from [facility] PRAPARE - Transportation Lack of Transportation (Medical): No Lack of Transportation (Non-Medical): No Housing Stability: Low Risk (11/10/2022) Received from [facility] Housing Stability Vital Sign Unable to Pay [...] Has CKD-3a, and Anemia documented in this [facility]09-17-20[facility] History of Present illness Narrative* Fernie Paredes [...] deficiency Gastroesophageal reflux disease without esophagitis Esophagitis, [place] grade A Esophageal stenosis Duodenal diverticulum Chronic [...] of cataract extraction, unspecified laterality History of [id number]-83-Ewdzbieb 09-30-2020 History of ETOH abuse Vision loss [...] thereafter. Alaina 01-02-[address] Philip at [facility] and q yearly. Alaina all labs, [...] choosing Dr. Fernie Paredes s [facility] at [facility] for your healthcare needs. The patients' entire past medical, surgical, family, social history, allergies, medications, recent labs, recent imaging and networks computer consultant letters were reviewed and updated. ASSESSMENT [...] deficiency Gastroesophageal reflux disease without esophagitis Esophagitis, [place] grade A Esophageal stenosis Duodenal diverticulum Chronic [...] of cataract extraction, unspecified laterality History of QNBTP-08-Xxkweohu 09-30-2020 History of ETOH abuse Vision loss [...] and follow- up instructions. Fernie Paredes DO [address] [place] [phone] This note is electronically signed in the electronic medical record. documented in this encounterLakehealth [facility] Center09-17-2024 Instructions* Patient Instructions* Fernie Paredes DO - 07/10/2024 2:00 PM EDT Do NON fasting lab on 07-16-24 documented in this encounterLakehealth [facility]wood [facility] Center09-17-2024 Evaluation note* Diagnosis Type 2 diabetes mellitus [...] reflux disease without esophagitis Esophageal reflux Esophagitis, [place] grade A Esophageal stenosis Stricture and stenosis [...] of cataract extraction, unspecified laterality History of RJCON-29-Zvdaemen 09-30-2020 History of ETOH abuse Nondependent alcohol abuse, in remission Vision loss of left eye Unqualified visual loss, one eye S/P unilateral salpingo-oophorectomy Acquired absence of organ, genital organs S/P total knee arthroplasty, right Family history of Alzheimer's disease-Father Family history of other condition documented in this encounter [facility]07[facility] NOTE HISTORY OF [...] pleasant 64-year-old female who follows with primary food prep worker Dr. Calderon with [facility] cardiology. She is status post 6 [...] No clubbing of fingers. Brian Brush, MSN, ASSEMBLER ARRANGER, HYDRAULIC PRESS SERVICER Interventional Cardiology/Structural Heart Disease Team [facility] AUTHENTICATED BY BRIAN BRUSH, ON 05/22/2024 10:47:18[facility] [id number] History of Present illness Narrative* Brian Brush CNP - 05/22/2024 10:25 AM EDT [facility]INIC NOTE HISTORY OF [...] astrid 64-year-old female who follows with primary food prep worker Dr. Calderon with [facility] cardiology. She is status post 6 [...] No clubbing of fingers. Brian Brush, MSN, ASSEMBLER ARRANGER, HYDRAULIC PRESS SERVICER Interventional Cardiology/Structural Heart Disease Team [facility] * Rose Mary Zepeda, SCOTT - 05/22/2024 [...] ___10___ TOTAL (0-100): ___100___ documented in this [id number] History of Present illness Narrative* Janet Lugo [...] Description Surgical incision Sit to Stand Transfer [place]et Level: Sit->Stand contact guard assist Assistive Device: Sit->Stand gait belt;2 wheeled walker Skilled Rationale Positioning;Hand placement;Verbal cues Stand to Sit Transfer [place]et Level: Stand->Sit contact guard assist Assistive Device: [...] chair UE Dressing Deficit Activity tolerance;Pull up arm;blemish remover head UE Dressing Intervention/Details Additional assist secondary [...] assist pt as needed post discharge. [facility] Daily Activity Inpatient Short Form Putting on/Taking Off Lower Body Clothing 2 - A Lot of Assistance Bathing 2 - A Lot of Assistance Toileting 2 - A Lot of Assistance Putting on/Taking Off Upper Body Clothing 3 - A Little Assistance Grooming 4 - No Assistance (while seated) Eating 4 - No Assistance (while seated) [facility] Activity Raw Score 17 [facility] Activity Functional Limitation/Modifier 50.11% Currently Impaired [...] this time) Therapist Information License # [place] [id number] General Information Pertinent History of Current Problem The patient is a 64 year old with sacroiliitis who underwent Right SI fixation. The patient was referred to physical therapy for post procedure education & mobility. Gonsalo Magdaleno PT [facility] Surgical operation note* Nery Germain RN - 05/03/2024 5:01 PM EDT Fernanda from OT here talking with patient. [facility]07-[facility] Nurse Note* Nery Germain RN - 05/03/2024 [...] pacu via cart by REINIER INFANTE and DANIKA,PORT STEWARD. Monitors applied and report given to REINIER MALLOY * Denae Bower RN - 05/03/2024 1:25 PM EDT Family called per surgeon request that surgery has started and everything is going well documented in this [facility] Nurse Surgical operation note* Nery Germain RN - 05/03/2024 4:39 PM EDT States feels good now. Awaiting OT. [facility]07[facility] Nurse Surgical operation note* Nery Germain RN - 05/03/2024 4:23 PM EDT Discharge instructions reviewed with patient and her ; verbalized understanding and copy given to patient. It is best if you have a responsible adult with you for the next 24 hours. [facility] Nurse Surgical operation note* Nery Germain RN - 05/03/2024 3:45 PM EDT C/o nausea; no emesis; medicated with Zofran. [facility]07-[facility] Nurse Surgical operation note* Nery Germain RN - 05/03/2024 3:38 PM EDT Gonsalo from PT here talking with patient. [facility] Nurse Surgical operation note* Nery Germain RN - 05/03/2024 2:54 PM EDT Discharged per stretcher to outpatient room 1 in stable condition and without complaints. Call light in reach. Pulse ox on; alarms/volume on. Stretcher in lowest position and brake on. [facility]07-[facility] Nurse Surgical operation note* Nery Germain RN - 05/03/2024 2:32 PM EDT Denies nausea. States is warm enough. Demonstrates ability to deep breathe/cough effectively. [facility]07[facility] Nurse Surgical operation note* Denae Bower RN - 05/03/2024 2:17 PM EDT Patient transported to pacu via cart by ARELISRN and PS,PORT STEWARD. Monitors applied and report given to REINIER MALLOY [facility]07-11-[facility] Surgery Postoperative evaluation and management note* Brief Op Note - Isreal Sigala MD - 05/03/2024 2:00 PM EDT POST OPERATIVE/PROCEDURE NOTE Elena Galeano ([id number]) SURGEON Surgeons and Role: * Isreal Sigala MD - Tee Rosales ANESTHESIOLOGIST PORT STEWARD: Alan Estevez APRN-PORT STEWARD Student Nurse Sales And Marketing Agent: Ronald Richards SURGICAL STAFF Loan Underwriter: Denae Bower RN; Diana oRsales RN Scrub Person: Seda Philippe PROCEDURE PERFORMED [...] MD May 03, 2024 2:00 PM T [facility]07-11-2024 Miscellaneous Notes* Brief Op Note - Isreal Sigala MD - 05/03/2024 2:00 PM EDT POST OPERATIVE/PROCEDURE NOTE Elena Galeano ([id number]) SURGEON Surgeons and Role: * Isreal Sigala MD - Tee Rosales ANESTHESIOLOGIST PORT STEWARD: Alan Estevez APRN-ROMAN Student Nurse Sales And Marketing Agent: Ronald Richards SURGICAL STAFF Loan Underwriter: Denae Bower RN; Diana Rosales RN Scrub [...] 03, 2024 2:00 PM documented in this encounterL[facility] Nurse Surgical operation note* Denae Bower RN - 05/03/2024 1:25 PM EDT Family called per surgeon request that surgery has started and everything is going well [facility]07[facility] Hospital Discharge instructions* Discharge Instructions* Nery Germain [...] (if ordered) rapidly. You must take an poav-ual-ochuxfa stool softner while taking narcotic pain medication [...] up your recovery. Please call the office [phone] if you have any questions or concerns [...] UP APPT : Call Dr Sigala's office [phone] to scheduled a follow up appt for 2-3 weeks postop, please getyour x-rays the Tuesday before your clinic appt with Dr Sigala. When you make your follow up appt with our office, ask about xray instructions. You had a dose of [place] today at 3:03 pm; the earliest you may take your next dose is 9:03 pm this evening. documented in this [facility]06[facility] History of Present illness Narrative* Fernie Paredes, [...] without esophagitis Folate deficiency Fatty liver Esophagitis, [place] grade A Esophageal stenosis Duodenal diverticulum Chronic [...] right History of ETOH abuse History of IWBEZ-22-Vojtenor 09-30-2020 History of cataract extraction, unspecified laterality [...] surgery. Alaina 05-22-24 with Brian Brush at [facility] for Watchabell alaina. Check fasting, well hydrated CBC, CMP, [...] Ciro Lyles. Alaina 10-31-[address] Davison. Alaian 01-02-[address] Tamera YANEZ. Alaina PAP [...] choosing Dr. Fern[facility] your [facility]. The patients' entire past medical, surgical, family, social history, allergies, medications, recent labs, recent imaging and networks computer consultant letters were reviewed and updated. ASSESSMENT & PLAN: Encounter Diagnoses Name Primary? Type 2 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 disease, without long-term current use of insulin Yes Hyperlipidemia LDL goal <70 Hyperthyroidism Hypertriglyceridemia Hypomagnesemia Hypoproteinemia Idiopathic chronic gout without tophus, unspecified site Vitamin D deficiency Hepatomegaly Gastroesophageal reflux disease without esophagitis Folate deficiency Fatty liver Esophagitis, [place] grade A Esophageal stenosis Duodenal diverticulum Chronic [...] right History of ETOH abuse History of AKLJO-21-Fwmjtkgd 09-30-2020 History of cataract extraction, unspecified laterality [...] and follow- up instructions. Fernie Paredes DO [address] [place] [id number] This note is electronically signed in the electronic medical record. documented in this [facility]06-25-2024 Instructions* Patient Instructions* Fernie Paredes DO - 04/17/2024 1:00 PM EDT Do fasting, well hydrated labs on approx. 07-03-24 documented in this [facility]06-25-2024 Miscellaneous Notes* Addendum Note - Fernie Paredes DO - 04/17/2024 1:00 PM EDTAddended by: FERNIE PAREDES on: 04/17/2024 01:58 PM Modules accepted: Level of Service documented in this encounterL[facility] Note* Addendum Note - Fernie Paredes DO - 04/17/2024 1:00 PM EDTAddended by: FERNIE PAREDES on: 04/17/2024 01:58 PM Modules accepted: Level of Service [facility] History of Present illness Narrative* Alysia Lackey [...] agree to proceed. . documented in this encounterL[facility]06-10-2024 Instructions* Patient Instructions* Ciro Lyles MD - 04/02/2024 10:50 AM EDT If you have any questions please contact our office at [phone]. After office hours or on the weekend, please call Dr. Lyles on his cell phone at [phone]. [facility] History of Present illness Narrative* Ciro Lyles [...] of its relevant components. documented in this [facility] History of Present illness Narrative* Brenda Dottie [...] follow for hyperthyroidism/abnormal TSH. documented in this [facility]04-[facility]-20[facility] History of Present illness Narrative* Fernie M [...] gastritis without bleeding, unspecified gastritis type Esophagitis, [place] grade A Esophageal stenosis Duodenal diverticulum PVC's [...] of cataract extraction, unspecified laterality History of LZEBQ-30-Yralqpxt 09-30-2020 History of ETOH abuse Family history [...] Risks discussed.We will call Dr. Philip at [facility] for 01-14-24 notes. Awaiting results of today's 3-D Mammogram. Alaina 02-15-[address] Sigala and review x rays done today with him. Alaina 03-01-[address] Calderon. Eval hyper thyroidism on 04-03-24 with Aviva Mera NP. Alaina 04-11-24, sooner prn. Alaina 05-22-24 with Aguilar Alexandra NP at [facility] for Watchman alaina and possibly DC Plavix then with her. Alaina alllabs, UA, Vit D, A1C, Mg, PTH, Fe, B12, Folate, UA CR and UA for Micro-albumin in . Alaina 08-06-24 Dr. Ciro Lyles. Laaina 09-19-[address] Naty Bhakta at [facility] and ask her about getting Shingrix. Alaina 10-31-[address] Davison. Alaina 01-02-[address] Philip at [facility]. Laaina 3-D Mammogram in . Alaina PAP in with 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 NP. Alaina DEXA in . Alaina Colon in .Total time spent 36 minutes, excluding tests and procedures. Diet and lifestyle counseling was given, and car e coordinated. OARRS report was received and assessed, and is consistent with the medications prescribed. Thank you for choosing Dr. Fernie Paredes s [facility] at [facility] for your healthcare needs. The patients' entire past medical, surgical, family, social history, allergies, medications, recent labs, recent imaging and networks computer consultant letters were reviewed and updated. ASSESSMENT [...] gastritis without bleeding, unspecified gastritis type Esophagitis, [place] grade A Esophageal stenosis Duodenal diverticulum PVC's [...] of cataract extraction, unspecified laterality History of IORDN-31-Geqcajvz 09-30-2020 History of ETOH abuse Family history [...] follow- up instructions. Fernie Paredes DO [address] [id number] This note is electronically signed in the electronic medical record. documented in this encounterL[facility]04-01-2024 Evaluation note* Diagnosis Type 2 diabetes mellitus [...] gastritis without bleeding, unspecified gastritis type Esophagitis, [place] grade A Esophageal stenosis Stricture and stenosis [...] of cataract extraction, unspecified laterality History of JJQPW-02-Vfrmpvrh 09-30-2020 History of ETOH abuse Nondependent alcohol abuse, in remission Family history of Alzheimer's disease Family history of other condition Other optic atrophy, left eye Posterior capsular opacification non visually significant, both eyes-L>R Other after-cataract, not obscuring vision documented in this encounter [facility] History of Present illness Narrative* Handy Benítez, [facility] - 01/10/2024 12:30 PM EDT Referred [...] MATERIAL (SLING) Midline 08/31/2022 Laterality: Midline; Surgeon: Dairusz Rangel MD; Location: [facility] OR CYSTOURETHROSCOPY [...] Laterality: N/A; Surgeon: Indra Parrish DO; Location: [facility] ONT ENDOSCOPY EGD DIAGNOSTIC N/A 04/07/2018 Laterality: N/A; Surgeon: Wilner Leigh MD; Location: [facility] ONT ENDOSCOPY COLONOSCOPY DIAGNOSTIC N/A 04/07/2018 Laterality: N/A; Surgeon: Wilner Leigh MD; Location: [facility] ONT ENDOSCOPY KNEE REPLACEMENT Right 05/2015 done at [place]--CC ARTHROPLASTY KNEE TOTAL Right 04/2015 INSERTION PICC [...] therapy, medications, SI belt, therapeutic injections. Inadequate terminal operations supervisor relief from therapeutic injection. 100% relief while [...] for surgical opinion and recommendations. * Garry Stephens MD - 01/10/2024 12:30 PM EDT Referred [...] ENDOSCOPY KNEE REPLACEMENT Right 05/2015 done at [place]--CC ARTHROPLASTY KNEE TOTAL Right 04/2015 INSERTION PICC [...] findings. Additions if any: Garry Stephens MD, [facility] Emission Specialist - [facility] documented in this [facility]03-19-2024 Instructions* Patient Instructions* Chelsea Olivarez - 01/10/2024 [...] effects associated with corticosteroids. documented in this [facility]03-19-2024 Miscellaneous Notes* Addendum Note - Chelsea Olivarez - 01/10/2024 12:30 PM EDTAddended by: CHELSEA OLIVAREZ on: 01/10/2024 01:28 PM Modules accepted: Orders documented in this encounterL[facility]03-19-2024 Note* Addendum Note - Chelsea Olivarez - 01/10/2024 12:30 PM EDTAddended by: CHELSEA OLIVAREZ on: 01/10/2024 01:28 PM Modules accepted: Orders [facility]03-15-2024 History of Present illness Narrative* Rose Mary [...] Alexandra CNP - 01/06/2024 10:54 AM EDT [facility] NOTE HISTORY OF [...] Daily CARDIOVASCULAR & METABOLIC PROBLEMS Atrial fibrillation [id number] score 5 status post left atrial appendage [...] No clubbing of fingers. Aguilar Alexandra CNP [facility] structural heart cardiology documented in this [id number] NoteCARDIAC CATHETERIZATION Date of Procedure: 11/24/23 Forestry Scientist and Supervising Physician: Kandice Christie MD Professor Of Chemistry: Gregory Montoya MD Name of Procedures: Percutaneous transcatheter closure of the left atrial appendage with Watchman FLX left atrial appendage occluder 24 mm device (CPT Code 97530, ICD 10 procedure code 70P06JV) for the treatment of a patient with paroxysmal (I40.0), atrial fibrillation. (DRG code 273 or 274) Medications: General anesthesia provided by Andrew Kaiser MD Indication for Procedure: A 63 y.o. adult with history of atrial fibrillation. The patient has a CHADS score of 5 and cannot take terminal operations supervisor anticoagulation due to extensive skin bruising Prior to implantation of the device the patient met with Dr. Fernie Paredes MD to discuss non-interventional, pharmacologic options to stroke prevention. No qualified Resident was available to assist in the case therefore due to the complexity,Gregory Montoya MD was utilized as my inventory control assistant Description of Procedure: Following informed consent, [...] exchanged out the Proglide sheath for a Molina sheath with a transseptal needle. Under fluoroscopic and echocardiographic images, the Micah versacross transseptal needle was used to perform transseptal puncture across the inter-atrial septum. The Molina sheath was advanced into the left atrium and the dilator to dilate the septum and then removed from the body. Heparin was then administered for full anticoagulation with intermittent monitoring of ACT. The Molina sheath was exchanged out for a 14-Argentine Atrite Watchman sheath, which was placed in the left atrium. A 6-Argentine pigtail catheter was advanced into the sheath and the stiff wire was then removed. Under fluoroscopic and echocardiographic guidance, the pigtail catheter was then placed selectively in the left atrial appendage and multiple angiographic images were obtained. We then advanced the 14-Argentine Atrite sheath into the left atrial appendage [...] of leak, the device was released. The 14-Argentine sheath was removed and hemostasis was achieved [...] left atrial appendage occluder 24 mm; LOT# [id number] Summary: The following findings were noted on [...] with and interpretation verified by Kandice Christie [facility]01-23-2024 History of Present illness Narrative* Jurgen Holden RN - 11/15/2023 11:29 AM EST [facility] Note-called pt, spoke to Ashu. Updated that I spoke to Dr. Parrish's office this morning and received clearance to proceed with RAYO for LAAO procedure. Will work with scheduling to get pr procedure CT scheduled and call back with the details. documented in this [id number] History of Present illness Narrative* Jurgen Holden RN - 11/11/2023 9:49 AM EST [facility] Note-Returned call to Sarah in response [...] and thankful for call. documented in this [id number] History of Present illness Narrative* Jurgen Holden RN - 11/08/2023 2:11 PM EST Pt called, LVM to update that after discussion with RAYO imaging physicians, GI clearance is required prior to proceeding with LAAO d/t history of previous esophageal stricture. Requested call back todiscuss. documented in this [id number] History of Present illness Narrative* Jurgen Holden RN - 11/08/2023 11:44 AM EST Pt med list updated. documented in this [id number] History of Present illness Narrative* Jurgen Holden RN - 11/08/2023 10:53 AM EST [facility]-completed and signed LAAO shared decision form received from Dr. Paredes. Will scan to pt's chart. documented in this [id number] History of Present illness Narrative* Kandice Christie MD - 11/08/2023 10:25 AM EST Structural Heart Disease Clinic Consult Heart & Vascular [facility] 11/08/2023 Kandice Christie MD [address] [facility] Medical Office [facility] [address] Patient: Elena Galeano Date of : [...] heart rate is well controlled onbeta-benedicto. Her FBQ0BK3-ESBk score is 5 giving an annual stroke [...] limited to risk of bleeding infection stroke SD or need for emergent open heart surgery. [...] on Eliquis was referred by her primary food prep worker to structural heart team at [facility] for further evaluation of left atrial appendage [...] visual disturbances No known history of CAD SD diabetes peripheral artery disease or any chronic [...] LDLCALC, LDLDIRECT, TRIG, HDL documented in this [id number] Instructions* Patient Instructions* Jurgen Holden RN - 11/03/2023 4:27 PM EST ..How to contact your Care Team: Provider: Gregory Montoya MD Nurse: Jurgen Holden RN In case of an emergency please call 911. REFILLS: When in need for refills please call your care team or the office at [phone]. Please include medication name, pharmacy name, and specify 30-day or 90-day supply. Please check with your pharmacy within 24 hours of request for your refill. You must follow up as directed to continue current refills. Thank you 2-Pre-CT You are scheduled for a pre-CT scan, on at [facility]. Please arrive at the Short Term Care [...] not the time of the procedure. LOCATION: [facility]. Please park in the garage next to the medical office building. If needed, therapist respiratory parking is available at the front entrance [...] You may reach our nurse line at [phone] for any questions or concerns. Please leave a message and we will return your call within 24 hours, Tuesday- Tuesday. For billing questions, please contact your insurance and/or our central billing office at [phone]. Thank you for choosing [facility], we look forward to caring for you. documented in this [id number] History of Present illness Narrative* Britta Mitchell [...] patient denies CLL (chronic lymphocytic leukemia) 2011 XWDSM-04-Lwwrxhow on 09-30-2020 Depression Diffuse non-Hodgkin's lymphoma chemotherapy [...] ENDOSCOPY KNEE REPLACEMENT Right 05/2015 done at [place]--CC ARTHROPLASTY KNEE TOTAL Right 04/2015 INSERTION PICC [...] 2.5 mg 2 tabs, BID- Lot # [id number] 08.15, Disp: 56 tablet, Rfl: 0 buPROPion [...] There is no significant central canal and hhas-wd-jpcigmwc left-sided foraminal narrowing IMPRESSION: MODERATE MULTILEVEL DEGENERATIVE [...] Please note Portions of this note utilized [employer] dictation software, please excuse any typographical or grammatical errors. [facility] in this [facility] History of Present illness Narrative* Fernie Paredes, [...] gastritis type Duodenal diverticulum Esophageal stenosis Esophagitis, [place] grade A Folate deficiency Fatty liver Gastroesophageal [...] CLL (chronic lymphocytic leukemia) Macrocytosis History of CQLZO-68-Fbneozih 09-30-2020 Vision loss of left eye Pseudophakia [...] sees Dr. Kandice Christie on 11-08-23 at [facility]. COVID-19, Shingrix and Arexvy vaccines declined. Risks discussed. Alaina 11-02-[address] Shipley. Alaina 11-08-[address] Kandice Christie. Alaina with Dr. Philip at [facility] in [place] and 6 months. Alaina 01-06-[address] Stephens. Check fasting, well hydrated CBC, CMP, A1C, Lipid, TSH, UA, Vit D, Mg, PTH, Fe, TIBC, Ferritin, B12, Folate, UA CR and UA for micro-albumin on apprxo 01-16-24 at [facility] lab. Alaina 01-23-24, sooner prn. Alaina 3-D Mammogram in . Alaina annual pelvic and breast exam in with 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 NP. Alaina 01-24-[address] Calderon. Alaina with Dr. Warren with [facility]. Aalina 08-06-[address] Ciro Lyles. Alaina 09-19-24 [...] choosing Dr. Fernie Paredes s Office at [facility] for your healthcare needs. The patients' entire past medical, surgical,family, social history, allergies, medications, recent labs, recent imaging and networks computer consultant letters were reviewed and updated. ASSESSMENT [...] gastritis type Duodenal diverticulum Esophageal stenosis Esophagitis, [place] grade A Folate deficiency Fatty liver Gastroesophageal [...] CLL (chronic lymphocytic leukemia) Macrocytosis History of BKLPN-53-Qdkuujtj 09-30-2020 Vision loss of left eye Pseudophakia [...] Fernando Davison. Dr. Wm. Calderon, and Naty Bhkata, Hematology at [facility] Standing Status: Future Standing [...] follow- up instructions. Fernie Paredes DO [address] [phone] This note is electronically signed in the electronic medical record. documented in this [facility]01-08-2024 Instructions* Patient Instructions* Fernie Paredes DO - 10/31/2023 10:00 AM EST Do fasting, well hydrated labs on approx 01-16-24 documented in this [facility]01-08-2024 Miscellaneous Notes* Addendum Note - Fernie Paredes DO - 10/31/2023 10:00 AM ESTAddended by: FERNIE PAREDES on: 10/31/2023 10:43 AM Modules accepted: Level of Service documented in this [facility]01-08-2024 Note* Addendum Note - Fernie Paredes DO - 10/31/2023 10:00 AM ESTAddended by: FERNIE PAREDES on: 10/31/2023 10:43 AM Modules accepted: Level of Service [facility]01-08-2024 Evaluation note* Diagnosis Type 2 diabetes [...] stenosis Stricture and stenosis of esophagus Esophagitis, [place] grade A Folate deficiency Other B-complex deficiencies [...] of blood and blood-forming organs History of IMNRQ-82-Cuehyyak 09-30-2020 Vision loss of left eye Unqualified [...] of other condition documented in this encounter [facility]01-[facility]20[facility] History of Present illness Narrative* Fernando Davison MD - 10/26/2023 2:00 PM EST DAILY PROGRESS NOTE Admit Date: (Not on file) Date of Evaluation: :17 PM [facility] @JORGE@ IMPRESSION AND PLAN: 63 y/o female [...] APPEARANCE, URINE 10/22/2023 CLEAR CLEAR Final Specific [place], Urine 10/22/2023 1.015 1.010 - 1.025 Final [...] Final LABS Labs-ABGs @ABGROUNDS@ Labs-CBC @CBCBRIEFROUNDS@ Labs-Chem 7([facility]) @[facility]@ Labs-Coa WBC (WHITE BLOOD COUNT) Date Value [...] THERAPUTIC RANGE 80-112 SEC Testing performed at [place], [place] [address] PROTEIN, TOTAL Date Value Ref Range Status [...] 2.3 MG/DL Final Comment: Testing performed at [place], [place] [address] 04/21/2023 1.3 (L) 1.6 - 2.3 MG/DL [...] Skin: Warm and dry documented in this [facility]01-03-2024 Miscellaneous Notes* Addendum Note - Fernando Davison MD - 10/26/2023 2:00 PM ESTAddended by: FERNANDO DAVISON on: 10/26/2023 02:24 PM Modules accepted: Orders documented in this [facility]01-03-2024 Note* Addendum Note - Fernando Dvaison MD - 10/26/2023 2:00 PM ESTAddended by: FERNANDO DAVISON on: 10/26/2023 02:24 PM Modules accepted: Orders [facility]01-02-2024 History of Present illness Narrative* Jurgen Holden RN - 10/25/2023 5:28 PM EST [facility] Note-Received referral for MAXIMILIAN rueda in [facility] from Dr. Calderon. Workup process started. Pt called to schedule appointment, LVM requesting call back. documented in this [id number] History of Present illness Narrative* YUKO Kang [...] patient denies CLL (chronic lymphocytic leukemia) 2011 QGEFF-70-Ljjepwmw on 09-30-2020 Depression Diffuse non-Hodgkin's lymphoma chemotherapy [...] ENDOSCOPY KNEE REPLACEMENT Right 05/2015 done at [facility]-CC ARTHROPLASTY KNEE TOTAL Right 04/2015 INSERTION [...] 2.5 mg 2 tabs, BID- Lot # [id number] 08.15, Disp: 56 tablet, Rfl: 0 buPROPion [...] There is no significant central canal and rycu-eu-xkcfwzte left-sided foraminal narrowing IMPRESSION: MODERATE MULTILEVEL DEGENERATIVE [...] Please note Portions of this note utilized KAICORE dictation software, please excuse any typographical or grammatical errors. [facility] History of Present illness Narrative* Clara Real [...] ENDOSCOPY KNEE REPLACEMENT Right 05/2015 done at [place]--CC ARTHROPLASTY KNEE TOTAL Right 04/2015 INSERTION PICC [...] Laterality: Midline; Surgeon: Dariusz Rangel MD; Location: [facility] OR COLPORRHAPHY ANTEROPOSTERIOR REPAIR CYSTOCELE & [...] ENDOSCOPY KNEE REPLACEMENT Right 05/2015 done at [place]--CC ARTHROPLASTY KNEE TOTAL Right 04/2015 INSERTION PICC [...] findings. Additions if any: Garry Stephens MD, [facility] Emission Specialist - [facility] documented in this [facility]12-04-2023 Instructions* Patient Instructions* Chelsea Olivarez - 09/26/2023 [...] effects associated with corticosteroids. documented in this [facility]11-29-2023 History of Present illness Narrative* Sean Khan [...] patient denies CLL (chronic lymphocytic leukemia) 2011 OIEYR-66-Dhgkotlt on 09-30-2020 Depression Diffuse non-Hodgkin's lymphoma chemotherapy [...] laboratory studies or exam. [facility] Instructions* Patient Instructions* Miri Vargas RN - 09/21/2023 11:20 AM EST YOUR PRIMARY TEAM Dr. Naty Echols, HYDRAULIC PRESS SERVICER - Nurse Practitioner Sujit Thomason, RN - Primary Nurse Miri Vargas, RN- Secondary Nurse Please contact our office if you develop a temperature of 100.4 or greater. CONTACT NUMBERS Clinic phone: [phone] Clinic fax: [phone] MEDICAL RECORDS The Release of Information (KEVIN) area is staffed from 8:00 a.m. to 7:00 p.m. and is available for walk in requests from 8:00 a.m. to 4:30 p.m. [facility] is responsible for answering requests for copies of medical records from various requestors such as insurance companies, attorneys, hospitals and patients. Please note it can take up to 2 weeks to complete your request. [phone]; [phone] (fax). DISABILITY FORMS This category includes any [...] our team about the suggested recovery time. [employer] Newsletter is a secure way to get access to your labs online. In most instances, your test results are released to your [employer] account after your physician has reviewed them. [...] For non-emergent concerns, please send us a TeliApp message but describe your issue fully. As an example, tell us how long you've had the symptom, what makes it better or worse, what you've done for it already) and one of our nurses or nurse practitioners will respond kenneth. For questions or concerns regarding MyChart access or technical dificulties, please call [phone] or toll free at . Results for [...] Auto 1.83 1.16 - 3.51 K/uL Abs [place] Auto 1.12 (H) 0.22 - 0.87 K/uL Abs Eos Auto <0.04 0.00 - 0.42 K/uL Abs Baso Auto 0.05 0.00 - 0.15 K/uL documented in this [facility]11-28[facility] History of Present illness Narrative* Joycelyn Calhoun [...] patient denies CLL (chronic lymphocytic leukemia) 2011 NBXVM-82-Lwptnmkn on 09-30-2020 Depression Diffuse non-Hodgkin's lymphoma chemotherapy [...] ENDOSCOPY KNEE REPLACEMENT Right 05/2015 done at [place]--CC ARTHROPLASTY KNEE TOTAL Right 04/2015 INSERTION PICC [...] up in 2 weeks documented in this [facility]11-17-2023 History of Present illness Narrative* Tom Srivastava, KESHIA - 09/09/2023 11:40 AM EST DENTISTRY AND MAXILLOFACIAL PROSTHETICS Elena Galeano [id number] 09/09/2023 SUBJECTIVE: Elena Galeano presents today for [...] concerns. Tom Srivastava DMD documented in this [facility]-16-[facility] History of Present illness Narrative* YUKO Kang [...] patient denies CLL (chronic lymphocytic leukemia) 2011 REJXJ-17-Nnbepfzk on 09-30-2020 Depression Diffuse non-Hodgkin's lymphoma chemotherapy [...] Laterality: Left; Surgeon: Eduardo Muñoz MD; Location: [facility] INTERVENTIONAL RADIOLOGY (VIR) EGD W/ DILATION BALLOON N/A 06/30/2018 Laterality: N/A; Surgeon: Indra Parrish DO; Location: [facility] EGD DIAGNOSTIC N/A 04/07/2018 Laterality: N/A; Surgeon: Wilner Leigh MD; Location: [facility] COLONOSCOPY DIAGNOSTIC N/A 04/07/2018 Laterality: N/A; Surgeon: Wilner Leigh MD; Location: [facility] KNEE REPLACEMENT Right 05/2015 done at [place]--CC ARTHROPLASTY KNEE TOTAL Right 04/2015 INSERTION PICC [...] 2.5 mg 2 tabs, BID- Lot # [id number] 08.15, Disp: 56 tablet, Rfl: 0 buPROPion [...] There is no significant central canal and flit-hc-nbzcgyow left-sided foraminal narrowing IMPRESSION: MODERATE MULTILEVEL DEGENERATIVE [...] Please note Portions of this note utilized KAICORE dictation software, please excuse any typographical or grammatical errors. documented in this [facility]10-31-2023 History of Present illness Narrative* Graciela Ramirez [...] 2.5 mg 2 tabs, BID- Lot # [id number] - 08.15 buPROPion (Wellbutrin XL) 300 MG [...] Chew 1 tab q daily Evolocumab (Repatha Fabianoick) 140 MG/ML Solution Auto-injector [...] patient denies CLL (chronic lymphocytic leukemia) 2011 PONZW-34-Gludwwyi on 09-30-2020 Depression Diffuse non-Hodgkin's lymphoma chemotherapy [...] ENDOSCOPY KNEE REPLACEMENT Right 05/2015 done at [place]--CC ARTHROPLASTY KNEE TOTAL Right 04/2015 INSERTION PICC [...] for final follow up documented in this [facility]10-23-[facility] History of Present illness Narrative* Jenise Hodges [...] patient denies CLL (chronic lymphocytic leukemia) 2011 JQOSH-67-Furqvtgt on 09-30-2020 Depression Diffuse non-Hodgkin's lymphoma chemotherapy [...] ENDOSCOPY KNEE REPLACEMENT Right 05/2015 done at [place]--CC ARTHROPLASTY KNEE TOTAL Right 04/2015 INSERTION PICC [...] 2.5 mg 2 tabs, BID- Lot # [id number] 08.15, Disp: 56 tablet, Rfl: 0 buPROPion [...] There is no significant central canal and skcm-wa-ujzryeaa left-sided foraminal narrowing IMPRESSION: MODERATE MULTILEVEL DEGENERATIVE [...] Please note Portions of this note utilized KAICORE dictation software, please excuse any typographical or grammatical errors. documented in this encounterLake[facility]10-20-2023 History of Present illness Narrative* Tom Srivastava, DMD - 08/12/2023 4:10 PM EDT VIRTUAL VISIT PROGRESS NOTE This is a virtual visit using DAXKOom Video Visit. It required patient- provider interaction for the medical decision making as documented below. The patient's identity and physical location were verified at the time of this visit. Either the patient or their legal sales solutions representative has been informed of the risks [...] position and follow up 4 weeks. Tom Srivastava DMD documented in this encounterKind[facility]10-19-2023 History of Present illness Narrative* Joycelyn Calhoun MA - 08/11/2023 1:10 PM EDT Nurse [...] 2.5 mg 2 tabs, BID- Lot # [id number] - 08.15 buPROPion (Wellbutrin XL) 300 MG [...] patient denies CLL (chronic lymphocytic leukemia) 2011 LVBOI-85-Dgcwlkev on 09-30-2020 Depression Diffuse non-Hodgkin's lymphoma chemotherapy [...] Isreal Sigala MD; Location: [facility] OR EGD W/ DILATION BALLOON N/A 12/01/2021 Laterality: N/A; Surgeon: Indra Parrish DO; Location: [facility] SHOULDER ARTHROSCOPY Left 06/18/2021 REMOVAL CENTRAL VENOUS ACCESS DEVICE TUNNELED W/ PORT PUMP Left 09/13/2019 Laterality: Left; Surgeon: Eduardo Muñoz MD; Location: [facility] INTERVENTIONAL RADIOLOGY (VIR) EGD W/ DILATION BALLOON N/A 06/30/2018 Laterality: N/A; Surgeon: Indra Parrish DO; Location: [facility] EGD DIAGNOSTIC N/A 04/07/2018 Laterality: N/A; Surgeon: Wilner Leigh MD; Location: [facility] COLONOSCOPY DIAGNOSTIC N/A 04/07/2018 Laterality: N/A; Surgeon: Wilner Leigh MD; Location: [facility] KNEE REPLACEMENT Right 05/2015 done at [place]--CC ARTHROPLASTY KNEE TOTAL Right 04/2015 INSERTION PICC [...] out of the deep space. Sent to [facility] for pathology eval. Continue antibiotics per [...] came out. Culture taken documented [facility] this [facility]10[facility]16[facility] History of Present illness Narrative* iCro Lyles MD - 08/08/2023 2:35 PM EDT [...] ophthalmic technical staff.I have seen and examined Elnea Galeano. I have discussed the examination findings, diagnosis, and treatment options with Elena Galeano and/or her family. I have also reviewed and agree with the assessment and plan as stated above and agree with all its relevant components. I gave the patient the opportunity to ask questions about the findings, diagnosis, and treatment options. documented in this encounterKind[facility]10-13-2023 History of Present illness Narrative* Tom Srivastava DMD - 08/05/2023 5:09 PM EDT DENTISTRY AND MAXILLOFACIAL PROSTHETICS 08/05/2023 Elena Galeano [id number] SUBJECTIVE: This 63 year old female presents [...] concerns. Tom Srivastava DMD documented in this encounterKind[facility]10-12-2023 History of Present illness Narrative* Brandie Marie [...] discharged ambulatory from clinic. documented in this encounterL[facility]10-12-2023 History of Present illness Narrative* Sarah Edmondson [...] patient denies CLL (chronic lymphocytic leukemia) 2012 FHJNG-97-Tanydtzi on 09-30-2020 Depression Diffuse non-Hodgkin's lymphoma chemotherapy [...] ENDOSCOPY KNEE REPLACEMENT Right 05/2015 done at [place]--CC ARTHROPLASTY KNEE TOTAL Right 04/2015 INSERTION PICC [...] 2.5 mg 2 tabs, BID- Lot # [id number] 08.15, Disp: 56 tablet, Rfl: 0 buPROPion [...] There is no significant central canal and vxez-lq-xnszglvt left-sided foraminal narrowing IMPRESSION: MODERATE MULTILEVEL DEGENERATIVE [...] is going to the infusion center in [place] but we will be transferring to [facility] in orders were written so she can go closer to home -case discussed with the 2nd infectious disease provider regarding the cold abscesses that continueto occur raising the question of an atypical pathogen. If the IV antibiotics do not heal this area,would recommend open biopsy of tissue for sending to for broad range PCR to [facility] for bacteria, fungal and AFB specimens and [...] paperwork for transfer of infusion center to [place], lab orders, dalt-yk-umnm evaluation, review of literature. Please note Portions of this note utilized KAICORE dictation software, please excuse any typographical or grammatical errors. documented in this [facility]10-11-2023 History of Present illness Narrative* Simona Garcia RN - 08/03/2023 1:30 PM EDT 1322: Patient arrives to clinic ambulatory for IV ATB. 1403: Infusion completed-no adverse reaction noted-PICC line flushed-patient leaves clinic ambulatory. documented in this [facility]10-10-2023 History of Present illness Narrative* Brandie Marie [...] from clinic with AVS. documented in this [facility]10-09-2023 History of Present illness Narrative* Chelsea Sierra [...] Verbalizes understanding of instructions. documented in this [facility]10-08-2023 History of Present illness Narrative* Libertad Faust RN - 07/31/2023 8:00 AM EDT 0759 - Pt arrived to Infusion Clinic for antibiotic infusion. Pt is accompanied by . No c/o pain or other concerns at this time. 0826 - Pt resting in recliner. [place] offered for pt comfort. Infusion initiated. Pt [...] parking lot with . documented in this [facility]10-07-2023 History of Present illness Narrative* Libertad Faust RN - 07/30/2023 8:15 AM EDT 0803 - Pt arrived in Infusion clinic for antibiotic treatment. Pt is alert and pleasant with no c/oat this time. VSS, PICC line assessed with good blood return noted. Pt comfortably sitting in recliner. 0831 - Infusion started. [place] offered to pt. No c/o at this time. 0857 - Pt chatting with other patients and staff. No c/o at this time. 0900 - Infusion completed. PICC line flushed and alcohol cap applied. 904 - VSS. Pt denies pain. Pt agreeable to plan to come to clinic tomorrow and Tuesday to continue treatment. documented in this encounterLake[facility]10-06-2023 History of Present illness Narrative* Simona Garcia RN - 07/29/2023 12:00 PM EDT 1410: Patient arrives to clinic ambulatory for IV ATB. Accompanied by . 1500: Infusion completed-no adverse reaction noted-PICC line flushed-patient leaves clinic ambulatory accompanied by . documented in this encounterLake[facility]10-06-2023 History of Present illness Narrative* Jenise Hodges [...] patient denies CLL (chronic lymphocytic leukemia) 2011 OBQUX-09-Bvtgayhy on 09-30-2020 Depression Diffuse non-Hodgkin's lymphoma chemotherapy [...] Laterality: N/A; Surgeon: Indra Parrish DO; Location: [facility] ENDOSCOPY EGD DIAGNOSTIC N/A 04/07/2018 Laterality: N/A; Surgeon: Wilner Leigh MD; Location: [facility] COLONOSCOPY DIAGNOSTIC N/A 04/07/2018 Laterality: N/A; Surgeon: Wilner Leigh MD; Location: [facility] ENDOSCOPY KNEE REPLACEMENT Right 05/2015 done at [place]--CC ARTHROPLASTY KNEE TOTAL Right 04/2015 INSERTION PICC [...] 2.5 mg 2 tabs, BID- Lot # [id number] 08.15, Disp: 56 tablet, Rfl: 0 buPROPion [...] There is no significant central canal and hwfb-oy-dcmheppd left-sided foraminal narrowing IMPRESSION: MODERATE MULTILEVEL DEGENERATIVE [...] provider -paperwork was admitted twice for insurance [employer] home antibiotics but this is not been [...] Please note Portions of this note utilized KAICORE dictation software, please excuse any typographical or grammatical errors. documented in this [facility]10-05-2023 History of Present illness Narrative* Joycelyn Calhoun [...] 2.5 mg 2 tabs, BID- Lot # [id number] 08.15 buPROPion (Wellbutrin XL) 300 MG tablet [...] patient denies CLL (chronic lymphocytic leukemia) 2011 NQVYF-34-Seikssxt on 09-30-2020 Depression Diffuse non-Hodgkin's lymphoma chemotherapy [...] DILATION BALLOON N/A 12/01/2021 Laterality: N/A; Surgeon: Inrda Parrish DO; Location: [facility] SHOULDER [...] ENDOSCOPY KNEE REPLACEMENT Right 05/2015 done at [place]--CC ARTHROPLASTY KNEE TOTAL Right 04/2015 INSERTION PICC [...] she will have this done tomorrow in [place] at 9am 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 shipley tomorrow. Hopefully she will get the PICC and IV antibiotics so that we can save this toe. Daily dressing changes At risk of amputation of toe Follow up in 2 week documented in this [facility]09[facility] History of Present illness Narrative* Sarah Edmondson [...] patient denies CLL (chronic lymphocytic leukemia) 2011 IQYLI-17-Zxhtiyib on 09-30-2020 Depression Diffuse non-Hodgkin's lymphoma chemotherapy [...] ENDOSCOPY KNEE REPLACEMENT Right 05/2015 done at [place]--CC ARTHROPLASTY KNEE TOTAL Right 04/2015 INSERTION PICC [...] 2.5 mg 2 tabs, BID- Lot # [id number] - 08.15, Disp: 56 tablet, Rfl: 0 [...] There is no significant central canal and ygoi-bb-hzuopznu left-sided foraminal narrowing IMPRESSION: MODERATE MULTILEVEL DEGENERATIVE [...] Please note Portions of this note utilized KAICORE dictation software, please excuse any typographical or grammatical errors. documented in this encounterLake[facility]09-29-2023 Miscellaneous Notes* Addendum Note - Sarah Edmondson MA - 07/22/2023 8:15 AM EDTAddended by: SARAH EDMONDSON on: 07/22/2023 09:12 AM Modules accepted: Orders * Addendum Note - Sarah Edmondson MA - 07/22/2023 8:15 AM EDTAddended by: SARAH EDMONDSON on: 07/22/2023 02:51 PM Modules accepted: Orders documented in this encounterLake[facility]09-29-2023 Note* Addendum Note - Sarah Edmondson MA - 07/22/2023 8:15 AM EDTAddended by: SARAH EDMONDSON on: 07/22/2023 09:12 AM Modules accepted: Orders [facility]09-29-[facility]23 Note* Addendum Note - Sarah Edmondson MA - 07/22/2023 8:15 AM EDTAddended by: SARAH EDMONDSON on: 07/22/2023 02:51 PM Modules accepted: Orders [facility]09-28-[facility] History of Present illness Narrative* Dragan Candelaria [...] 2.5 mg 2 tabs, BID- Lot # [id number] - 10.23 buPROPion (Wellbutrin XL) 300 [...] patient denies CLL (chronic lymphocytic leukemia) 2011 LKFBV-45-Omibibqt on 09-30-2020 Depression Diffuse non-Hodgkin's lymphoma chemotherapy [...] Laterality: Left; Surgeon: Eduardo Muñoz MD; Location: [facility] INTERVENTIONAL RADIOLOGY (VIR) EGD W/ DILATION BALLOON N/A 06/30/2018 Laterality: N/A; Surgeon: Indra Parrish DO; Location: [facility] EGD DIAGNOSTIC N/A 04/07/2018 Laterality: N/A; Surgeon: Wilner Leigh MD; Location: [facility] COLONOSCOPY DIAGNOSTIC N/A 04/07/2018 Laterality: N/A; Surgeon: Wilner Leigh MD; Location: [facility] KNEE REPLACEMENT Right 05/2015 done at [place]--CC ARTHROPLASTY KNEE TOTAL Right 04/2015 INSERTION PICC [...] immediate complications Culture taken documented in this [facility]09-25-[facility] History of Present illness Narrative* Dragan Candelaria [...] 2.5 mg 2 tabs, BID- Lot # [id number] 08.15 buPROPion (Wellbutrin XL) 300 MG tablet [...] patient denies CLL (chronic lymphocytic leukemia) 2011 SVNPA-56-Ykugsxri on 09-30-2020 Depression Diffuse non-Hodgkin's lymphoma chemotherapy [...] ENDOSCOPY KNEE REPLACEMENT Right 05/2015 done at [place]--CC ARTHROPLASTY KNEE TOTAL Right 04/2015 INSERTION PICC [...] up in 3 weeks documented [facility] this [facility] History of Present illness Narrative* Jenise Hodges [...] [facility] Hx [...] patient denies CLL (chronic lymphocytic leukemia) 2011 RKYRL-30-Dwucbzjf on 09-30-2020 Depression Diffuse non-Hodgkin's lymphoma chemotherapy [...] Laterality: Left; Surgeon: Eduardo Muñoz MD; Location: [facility] INTERVENTIONAL RADIOLOGY (VIR) EGD W/ DILATION BALLOON N/A 06/30/2018 Laterality: N/A; Surgeon: Indra Parrish DO; Location: [facility] EGD DIAGNOSTIC N/A 04/07/2018 Laterality: N/A; Surgeon: Wilner Leigh MD; Location: [facility] COLONOSCOPY DIAGNOSTIC N/A 04/07/2018 Laterality: N/A; Surgeon: Wilner Leigh MD; Location: [facility] KNEE REPLACEMENT Right 05/2015 done at [place]--CC ARTHROPLASTY KNEE TOTAL Right 04/2015 INSERTION PICC [...] 2.5 mg 2 tabs, BID- Lot # [id number] 08.15, Disp: 56 tablet, Rfl: 0 buPROPion [...] There is no significant central canal and oeco-ur-rycyggmv left-sided foraminal narrowing IMPRESSION: MODERATE MULTILEVEL DEGENERATIVE [...] Please note Portions of this note utilized KAICORE dictation software, please excuse any typographical or grammatical errors. documented in this [facility]09-20[facility] History of Present illness Narrative* Sarah Edmondson [...] patient denies CLL (chronic lymphocytic leukemia) 2011 AFCOG-38-Hrzzxqxs on 09-30-2020 Depression Diffuse non-Hodgkin's lymphoma chemotherapy [...] ENDOSCOPY KNEE REPLACEMENT Right 05/2015 done at [facility]-CC ARTHROPLASTY KNEE TOTAL Right 04/2015 INSERTION [...] 2.5 mg 2 tabs, BID- Lot # [id number] 08.15, Disp: 56 tablet, Rfl: 0 buPROPion [...] There is no significant central canal and ldqu-th-lotvcqgo left-sided foraminal narrowing IMPRESSION: MODERATE MULTILEVEL DEGENERATIVE [...] Please note Portions of this note utilized KAICORE dictation software, please excuse any typographical or grammatical errors. documented in this encounterLake[facility]09-15-2023 Nurse Note* Nursing Notes - Gabby Rondon RN - 07/08/2023 11:32 AM EDT Written and verbal discharge instructions reviewed. Understanding voiced.spouse at bedside. Questions encouraged and answered. Assisted to edge of bed. Spouse assisting with dressing. [facility]09-15-[facility] Miscellaneous Notes* Nursing Notes - Gabby Rondon [...] Elena Galeano is a 63 y.o. female [id number] SURGEON Surgeon(s) and Role: Dawn Uriarte DPM PROCESS TECH NONE ANESTHESIOLOGIST: No responsible provider has been recorded for the case. SURGICAL STAFF Loan Underwriter: Clara Mello RN Scrub Person: Chelsea Serna [...] DPM 07/08/2023 10:36 AM documented in this [facility]09-15-[facility]23 Surgery Postoperative evaluation and management note* Op [...] acid fast and fungal. Dawn Uriarte DPM [facility]09-15-2023 Surgery Postoperative evaluation and management note* Brief Op Note - Dawn Uriarte DPM - 07/08/2023 10:36 AM EDT POST OPERATIVE/PROCEDURE NOTE Elena Galeano is a 63 y.o. female [id number] SURGEON Surgeon(s) and Role: Dawn Uriarte DPM PROCESS TECH NONE ANESTHESIOLOGIST: No responsible provider has been recorded for the case. SURGICAL STAFF Loan Underwriter: Clara Mello RN Scrub Person: Chelsea Serna [...] 1003 Dawn Uriarte DPM 07/08/2023 10:36 AM [facility]09-[facility] Hospital Discharge instructions* Discharge Instructions* Dawn Uriarte DPM - 07/08/2023 9:10 AM EDT [facility] DISCHARGE INSTRUCTIONS Patient s Name: Elena Galeano [...] you are interested in smoking cessation, contact [facility] at [phone]. When to call: Fever of 101 degrees or higher Extreme pain Nausea and vomiting Call Dr. Uriarte's office at [phone] If there is a medical emergency call 911 or go to your nearest emergency department. Dr. Uriarte documented in this [facility]09-15-2023 Attending History and physical note* Dawn Uriarte [...] patient denies CLL (chronic lymphocytic leukemia) 2012 AGXKT-22-Tkbqzopo on 09-30-2020 Depression Diffuse non-Hodgkin's lymphoma chemotherapy [...] Laterality: Left; Surgeon: Eduardo Muñoz MD; Location: [facility] INTERVENTIONAL RADIOLOGY (VIR) EGD W/ DILATION BALLOON N/A 06/30/2018 Laterality: N/A; Surgeon: Indra Parrish DO; Location: [facility] EGD DIAGNOSTIC N/A 04/07/2018 Laterality: N/A; Surgeon: Wilner Leigh MD; Location: [facility] COLONOSCOPY DIAGNOSTIC N/A 04/07/2018 Laterality: N/A; Surgeon: Wilner Leigh MD; Location: [facility] KNEE REPLACEMENT Right 05/2015 done at [place]--CC ARTHROPLASTY KNEE TOTAL Right 04/2015 INSERTION PICC [...] section to H&P section for interval update. [employer] Work Phone: 1(791) 916-218109-15-2023 History and physical note* Dawn Uriarte DPM [...] patient denies CLL (chronic lymphocytic leukemia) 2011 NOQAW-33-Aogpdyno on 09-30-2020 Depression Diffuse non-Hodgkin's lymphoma chemotherapy [...] Laterality: Left; Surgeon: Eduardo Muñoz MD; Location: [facility] INTERVENTIONAL RADIOLOGY (VIR) EGD W/ DILATION BALLOON N/A 06/30/2018 Laterality: N/A; Surgeon: Indra Parrish DO; Location: [facility] EGD DIAGNOSTIC N/A 04/07/2018 Laterality: N/A; Surgeon: Wilner Leigh MD; Location: [facility] COLONOSCOPY DIAGNOSTIC N/A 04/07/2018 Laterality: N/A; Surgeon: Wilner Leigh MD; Location: [facility] KNEE REPLACEMENT Right 05/2015 done at [place]--CC ARTHROPLASTY KNEE TOTAL Right 04/2015 INSERTION PICC [...] patient denies CLL (chronic lymphocytic leukemia) 2011 GTPWG-53-Wnnfutpu on 09-30-2020 Depression Diffuse non-Hodgkin's lymphoma chemotherapy [...] ENDOSCOPY KNEE REPLACEMENT Right 05/2015 done at [place]--CC ARTHROPLASTY KNEE TOTAL Right 04/2015 INSERTION PICC [...] section for interval update. documented in this [facility]09[facility] History and physical note* Dawn Uriarte DPM [...] patient denies CLL (chronic lymphocytic leukemia) 2011 HZZGG-69-Wmgqnrxv on 09-30-2020 Depression Diffuse non-Hodgkin's lymphoma chemotherapy [...] ENDOSCOPY KNEE REPLACEMENT Right 05/2015 done at [facility]-CC ARTHROPLASTY KNEE TOTAL Right 04/2015 INSERTION [...] section to H&P section for interval update. [facility] [employer] [id number] History of Present illness Narrative* Rosalee Jackman [...] patient denies CLL (chronic lymphocytic leukemia) 2011 CVLPJ-14-Insdolhz on 09-30-2020 Depression Diffuse non-Hodgkin's lymphoma chemotherapy [...] Laterality: Midline; Surgeon: Dariusz Rangel MD; Location: [facility] OR COLPORRHAPHY ANTEROPOSTERIOR REPAIR CYSTOCELE & [...] ENDOSCOPY KNEE REPLACEMENT Right 05/2015 done at [place]--CC ARTHROPLASTY KNEE TOTAL Right 04/2015 INSERTION PICC [...] 2.5 mg 2 tabs, BID- Lot # [id number] 08.15, Disp: 56 tablet, Rfl: 0 buPROPion [...] There is no significant central canal and lqnf-pi-ogaypokr left-sided foraminal narrowing IMPRESSION: MODERATE MULTILEVEL DEGENERATIVE [...] Please note Portions of this note utilized [employer] dictation software, please excuse any typographical or grammatical errors. documented in this [facility]09-08-2023 History of Present illness Narrative* Tom Srivastava, [...] registration made at 50% at on the [employer]. [place] bite registration ASSESSMENT/PLAN: The patient has tolerated today's appointment well and will return for insertion of the appliance. Rx for DAVID PH appliance [facility]. Tom Srivastava DMD documented in this encounterKindred [facility]09-06-[facility]23 History of Present illness Narrative* Fernie Paredes, [...] esophagitis Fatty liver Duodenal diverticulum Hepatomegaly Esophagitis, [place] grade A Pulmonary emphysema, unspecified emphysema type [...] cyst, right Seborrheic keratosis, inflamed-Left thigh-S/P Excision WBCUT-08-Feylvygw on 09-30-2020 CLL (chronic lymphocytic leukemia) Macrocytosis [...] 07-06-[address] Philip at [facility]. Alaina 08-08-23 with me, as prior scheduled, [...] Kate NP. Alaina with Dr. Warren at [facility]. Alaina PAP in with 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 NP Alaina DEXA in . Alaina Colon in . Total time spent 33 minutes, excluding tests and procedures. Diet and lifestyle counseling was given, and care coordinated. OARRS report wasreceived and assessed, and is consistent with the medications prescribed.Thank you for choosing Dr.Harold Paredes s Office at [facility] for your healthcare needs.The patients' entire past medical, surgical, family, social history, allergies, medications, recent labs, recent imaging and networks computer consultant letters were reviewed and updated. ASSESSMENT [...] esophagitis Fatty liver Duodenal diverticulum Hepatomegaly Esophagitis, [place] grade A Pulmonary emphysema, unspecified emphysema type [...] cyst, right Seborrheic keratosis, inflamed-Left thigh-S/P Excision FBSOA-55-Evsoxjbi on 09-30-2020 CLL (chronic lymphocytic leukemia) Macrocytosis [...] 2.5 mg 2 tabs, BID- Lot # [id number] 08.15 56 tablet 0 buPROPion (Wellbutrin XL) [...] follow- up instructions. Fernie Paredes DO [address] [address] This note is electronically signed in the electronic medical record. documented in this encounterLake[facility]09-06-2023 Instructions* Patient Instructions* Fernie Paredes DO - 06/29/2023 11:30 AM EDT Do fasting, well hydrated labs on approx 07-29-23 documented in this encounterLake[facility]09-06-2023 Evaluation note* Diagnosis Type 2 diabetes mellitus [...] intestine (without mention of hemorrhage) Hepatomegaly Esophagitis, [place] grade A Pulmonary emphysema, unspecified emphysema type [...] keratosis, inflamed-Left thigh-S/P Excision Inflamed seborrheic keratosis [id number]-38-Hyaquqfu on 09-30-2020 CLL (chronic lymphocytic leukemia) Chronic [...] of toe, unspecified documented in this encounter [facility]09[facility] History of Present illness Narrative* Colleen Oreilly [...] 2.5 mg 2 tabs, BID- Lot # [id number] - 08.15 apixaban 5 MG tablet Take [...] 30-59 ml/min-3a CLL (chronic lymphocytic leukemia) 2011 GMFDX-55-Yulmxzal on 09-30-2020 Depression Diffuse non-Hodgkin's lymphoma chemotherapy [...] Laterality: Left; Surgeon: Isreal Sigala MD; Location: [facility] OR GUIDANCE FLUOROSCOPIC NEEDLE OR CATHETER [...] ENDOSCOPY KNEE REPLACEMENT Right 05/2015 done at [place]--CC ARTHROPLASTY KNEE TOTAL Right 04/2015 INSERTION PICC [...] number of active problems/diagnoses/medication(s) documented in this encounterLakehealth [facility] Center08-29-2023 History of Present illness Narrative* Clara Real [...] Patient will be starting physical therapy in [place] as ordered by Dr. Sigala Location: right [...] 2.5 mg 2 tabs, BID- Lot # [id number] 08.15, Disp: 56 tablet, Rfl: 0 apixaban 5 MG tablet, Take 1 tablet by mouth every 12 hours., Disp: 180 tablet, Rfl: 3 buPROPion (Wellbutrin XL) 300 MG tablet XL, Take 1 tablet by mouth every morning before breakfast.,Disp: 90 tablet, Rfl: 0 carveDILOL (Coreg) 12.5 MG tablet, Take 1 tablet by mouth 2 times daily with meals. Given by Dr. aClderon, Disp: , Rfl: Cetirizine 10 MG tablet, [...] ENDOSCOPY KNEE REPLACEMENT Right 05/2015 done at [place]--CC ARTHROPLASTY KNEE TOTAL Right 04/2015 INSERTION PICC [...] we injected the right lumbar paraspinal with FROG SHAKER to help with pain and inflammation. Referrals: None Medications prescribed today: None Follow up plan: Possible 3 month US Guided right SI injection with FROG SHAKER Complexity of problem(s): Moderate Risk of morbidity [...] Patient will be starting physical therapy in [place] as ordered by Dr. Sigala Location: right [...] 2.5 mg 2 tabs, BID- Lot # [id number] 08.15, Disp: 56 tablet, Rfl: 0 apixaban [...] ENDOSCOPY KNEE REPLACEMENT Right 05/2015 done at [place]--CC ARTHROPLASTY KNEE TOTAL Right 04/2015 INSERTION PICC [...] we injected the right lumbar paraspinal with FROG SHAKER to help with pain and inflammation. Referrals: None Medications prescribed today: None Follow up plan: Possible 3 month US Guided right SI injection with FROG SHAKER Complexity of problem(s): Moderate Risk of morbidity [...] Additions if any: Garry Stephens MD, CAQSM [facility] Emission Specialist - [facility] documented in this [facility]08[facility]29[facility] Instructions* Patient Instructions* Chelsea uJan A - 06/21/2023 8:00 AM EDT Patient [...] effects associated with corticosteroids. documented in this [facility]08-22-2023 History of Present illness Narrative* Joycelyn Calhoun [...] show me. She is done with the Ludiauin. History that the toe is improving, but [...] 30-59 ml/min-3a CLL (chronic lymphocytic leukemia) 2011 PJIOH-28-Pktjsaok on 09-30-2020 Depression Diffuse non-Hodgkin's lymphoma chemotherapy [...] Laterality: Left; Surgeon: Eduardo Muñoz MD; Location: [facility] INTERVENTIONAL RADIOLOGY (VIR) EGD W/ DILATION BALLOON N/A 06/30/2018 Laterality: N/A; Surgeon: Indra Parrish DO; Location: [facility] EGD DIAGNOSTIC N/A 04/07/2018 Laterality: N/A; Surgeon: Wilner Leigh MD; Location: [facility] COLONOSCOPY DIAGNOSTIC N/A 04/07/2018 Laterality: N/A; Surgeon: Wilner Leigh MD; Location: [facility] KNEE REPLACEMENT Right 05/2015 done at [place]--CC ARTHROPLASTY KNEE TOTAL Right 04/2015 INSERTION PICC [...] up in 2 weeks documented in this encounterLake[facility]07-18-2023 History of Present illness Narrative* Colleen Oreilly [...] 30-59 ml/min-3a CLL (chronic lymphocytic leukemia) 2011 SBQTE-90-Synixplu on 09-30-2020 Depression Diffuse non-Hodgkin's lymphoma chemotherapy [...] Laterality: Left; Surgeon: Eduardo Muñoz MD; Location: [facility] INTERVENTIONAL RADIOLOGY (VIR) EGD W/ DILATION BALLOON N/A 06/30/2018 Laterality: N/A; Surgeon: Indra Parrish DO; Location: [facility] EGD DIAGNOSTIC N/A 04/07/2018 Laterality: N/A; Surgeon: Wilner Leigh MD; Location: [facility] COLONOSCOPY DIAGNOSTIC N/A 04/07/2018 Laterality: N/A; Surgeon: Wilner Leigh MD; Location: [facility] KNEE REPLACEMENT Right 05/2015 done at [place]--CC ARTHROPLASTY KNEE TOTAL Right 04/2015 INSERTION PICC [...] me at the office. documented in this [facility]07-13-[facility] History of Present illness Narrative* Joycelyn Calhoun [...] DPM - 05/05/2023 1:00 PM EDTAssociated Order(s): TN DRAIN SKIN ABSCESS COMPLIC/MULTIPLE Patient Elena Galeano [...] 30-59 ml/min-3a CLL (chronic lymphocytic leukemia) 2011 AELYD-28-Brarfruo on 09-30-2020 Depression Diffuse non-Hodgkin's lymphoma chemotherapy [...] ENDOSCOPY KNEE REPLACEMENT Right 05/2015 done at [place]--CC ARTHROPLASTY KNEE TOTAL Right 04/2015 INSERTION PICC [...] CONTRAST; Future - CULTURE WOUND; Future - TN DRAIN SKIN ABSCESS COMPLIC/MULTIPLE Plan: Patient was seen and evaluated today Reviewed [facility] notes Reviewed xray that were performed by [facility] Dr. Uriarte independent interpretation/Impression of results: Fracture [...] they should contact me at the office. TN DRAIN SKIN ABSCESS COMPLIC/MULTIPLE Performed by: Dawn Uriarte DPM Authorized by: Dawn Uriarte DPM [place] Protocol Verbal consent obtained Written consent obtained Risks and benefits discussed Consent given by: patient Immediately prior to procedure a time out was called to verify the correct patient, procedure, equipment, lead performance support analyst and site/side marked as required. Anesthesia: Local [...] should contact my office. documented in this encounterLake[facility]07-10-2023 History of Present illness Narrative* CARO Knutson [...] 30-59 ml/min-3a CLL (chronic lymphocytic leukemia) 2011 CIPSW-61-Catkzghj on 09-30-2020 Depression Diffuse non-Hodgkin's lymphoma chemotherapy [...] ENDOSCOPY KNEE REPLACEMENT Right 05/2015 done at [place]--CC ARTHROPLASTY KNEE TOTAL Right 04/2015 INSERTION PICC [...] osteomyelitis. CARO Knutson 05/03/2023 documented in this [facility] History of Present illness Narrative* Zoltan Subramanian LPN - 04/29/2023 4:20 PM EDT Ortho Nurse - Established Patient Intake Room#: 2 Update for Left TKA on 05-16-23, pain of 10 at times, just finished Cephalexin today for a left big toe infection Date: 04/29/2023 4:58 PM Patient: Elena Galeano MR#: [id number] : 1960 Age: 63 y.o. Referring Physician: [...] kidney disease) stage 3, GFR 30-59 ml/min-3a FAFSM-40-Lhnoldfe on 09-30-2020 Depression Diffuse non-Hodgkin's lymphoma chemotherapy [...] ENDOSCOPY KNEE REPLACEMENT Right 05/2015 done at [place]--CC ARTHROPLASTY KNEE TOTAL Right 04/2015 INSERTION PICC [...] a left total knee arthroplasty for optimal terminal operations supervisor management. PHYSICAL EXAM: This is an alert, [...] joint space, subchondral sclerosis, osteophyte formation, and lvia-nm-zssx contact. IMPRESSION: 1.) Severe symptomatic end-stage arthritis, [...] reduced pain, improved stability and improved function. lEena also understands that the major limb and/or life threatening risks include, but are not limited to: bleeding, infection, neurovascular injury including foot drop or paralysis, dislocation, component failure, implant loosening, ligament or tendon disruption, fracture, stiffness, chronic pain, chronic disability, need for further surgery, blood clots in the extremities or lungs, stroke, heart attack, loss of limb, and ultimately loss of life. rodent exterminator expectations, risks and general implant survivorship were also discussed. Despite these risks, the patient would like to proceed with surgical planning. Today, we will initiate the pre-surgical process including nasal MRSA screening, scheduling an appointment for [facility] and the potential surgical [...] 30-59 ml/min-3a CLL (chronic lymphocytic leukemia) 2011 HKDOU-15-Tuladlrq on 09-30-2020 Depression Diffuse non-Hodgkin's lymphoma chemotherapy [...] ENDOSCOPY KNEE REPLACEMENT Right 05/2015 done at [place]--CC ARTHROPLASTY KNEE TOTAL Right 04/2015 INSERTION PICC [...] Reactions Nsaids Has CKD-3a documented in this encounterLakehealth [facility]07-05-2023 History of Present illness Narrative* Fernando Davison MD - 04/27/2023 3:30 PM EDT DAILY PROGRESS NOTE Admit Date: (Not on file) Date of Evaluation: :13 PM [facility] @RRHLOS@ IMPRESSION AND PLAN: 63 y/o female [...] LABS Labs-ABGs @ABGROUNDS@ Labs-CBC @CBCBRIEFROUNDS@ Labs-Chem 7(PMC) @[facility]@ Labs-Coags WBC (WHITE BLOOD COUNT) Date [...] THERAPUTIC RANGE 80-112 SEC Testing performed at [place], [place] [address] PROTEIN, TOTAL Date Value Ref Range Status [...] Skin: Warm and dry documented in this encounterLakehealth [facility] Center07-05-2023 Evaluation note* Diagnosis Stage 3a chronic kidney disease- Primary Primary osteoarthritis of left knee Primary localized osteoarthrosis, lower leg documented in this encounter [facility]06-29-[facility] History of Present illness Narrative* Shae Whittington, 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 - 04/21/2023 12:25 PM EDT Images from the original note were not included. HPI Elena Galeano female 1960 presents to the [facility] with Chief Complaint Patient [...] 30-59 ml/min-3a CLL (chronic lymphocytic leukemia) 2011 UWLMC-16-Thvverbc on 09-30-2020 Depression Diffuse non-Hodgkin's lymphoma chemotherapy [...] Laterality: Left; Surgeon: Eduardo Muñoz MD; Location: [facility] INTERVENTIONAL RADIOLOGY (VIR) EGD W/ DILATION BALLOON N/A 06/30/2018 Laterality: N/A; Surgeon: Indra Parrish DO; Location: [facility] EGD DIAGNOSTIC N/A 04/07/2018 Laterality: N/A; Surgeon: Wilner Leigh MD; Location: [facility] COLONOSCOPY DIAGNOSTIC N/A 04/07/2018 Laterality: N/A; Surgeon: Wilner Leigh MD; Location: [facility] KNEE REPLACEMENT Right 05/2015 done at [place]--CC ARTHROPLASTY KNEE TOTAL Right 04/2015 INSERTION PICC [...] Shae Whittington, YOAN 04/21/2023 documented in this encounterLake[facility] Center06-29-2023 History of Present illness Narrative* Dwight Sy [...] HISTORY OF BLOOD TRANSFUSION/REACTION no CULTURAL OR VOODOO BELIEFS THAT WILL AFFECT CARE no DIETARY [...] office. Pt states understanding. documented in this encounterLakehealth Beachwood [facility] Center06-29-2023 Instructions* Patient Instructions* Dwight Sy RN - 04/21/2023 8:30 AM EDT Images from the original note were not included. Dr Blackwood's office will call you for your arrival time, 1-2 business days before your scheduled surgery. Please review your surgery checklist and bring your guide or booklet the day of surgery. Pre-Admission Testing Dept. [phone] Call if you have any changes in [...] in the front main lot facing [facility] [address]. Enter through the front entrance and sign in at the Registration Desk at the [facility] lobby. Thank you for allowing us the privilege to care for you! Please record date and time of your medications on this sheet and bring this with you on the day ofsurgery. Yellow - take the day of surgery Urich - hold according to the doctor's instructions [...] ASK YOUR SURGEON, PRIMARY CARE DOCTOR OR AUTOMATIC DOOR MECHANIC (IF YOU SEE ONE), IF YOU SHOULD [...] ASK YOUR SURGEON, PRIMARY CARE DOCTOR OR AUTOMATIC DOOR MECHANIC (IF YOU SEE ONE), IF YOU SHOULD [...] ASK YOUR SURGEON, PRIMARY CARE DOCTOR OR AUTOMATIC DOOR MECHANIC (IF YOU SEE ONE), IF YOU SHOULD [...] LAST DOSE: DATE TIME documented in this [facility]06[facility]29-[facility] Miscellaneous Notes* Addendum Note - Dragan Colmenares RN - 04/21/2023 8:30 AM EDTAddended by: DRAGAN COLMENARES on: 04/21/2023 11:02 AM Modules accepted: Orders documented in this [facility]06-29-[facility]23 Note* Addendum Note - Dragan Colmenares RN - 04/21/2023 8:30 AM EDTAddended by: DRAGAN COLMENARES on: 04/21/2023 11:02 AM Modules accepted: Orders [facility]06-15-2023 History of Present illness Narrative* Tom Srivastava DMD - 04/07/2023 12:47 PM EDT Images from the original note were not included. [facility] 04/07/2023 Elena Galeano SUBJECTIVE: This 63 year old female presents for consultation at the request of Eddi Randhawa MD for evaluation of a possible oral mandibular advancement device for the treatment of PERCY. TIP Click here to document Coral Score and Neck Circumference (Refresh note to update). (No need to delete will not show in completed note) :[id number]} ESS today = 9 Bed partner? YES [...] teeth, facial pain, and TMD. Elena Mcgill [place] expressed understanding and agreed to proceed. All [...] record. Tom Srivastava DMD documented in this encounterKindred [facility]04-24-2023 History of Present illness Narrative* Fernie Paredes [...] disease without heart failure Duodenal diverticulum Esophagitis, [place] grade A Esophageal stenosis Combined forms of [...] inflamed-Left thigh-S/P Excision CLL (chronic lymphocytic leukemia) IPGVK-57-Lqzritsw on 09-30-2020 Macrocytosis Elevated LFTs Anxiety and [...] 09-28-[address] Naty Bhakta, Oncology at [facility] and get HD Flua nd Pneumovax-23 same [...] choosing Dr. Fernie Paredes s Office at [facility] for your healthcare needs.The patients' entire past medical, surgical, family, social history, allergies, medications,recent labs, recent imaging and networks computer consultant letters were reviewed and updated. ADDENDUM: [...] disease without heart failure Duodenal diverticulum Esophagitis, [place] grade A Esophageal stenosis Combined forms of [...] inflamed-Left thigh-S/P Excision CLL (chronic lymphocytic leukemia) MZQPZ-11-Onksreqz on 09-30-2020 Macrocytosis Elevated LFTs Anxiety and [...] follow- up instructions. Fernie Paredes DO [address] [address] This note is electronically signed in the electronic medical record. documented in this encounterLakehealth [facility] Center04-24-2023 Miscellaneous Notes* Addendum Note - Fernie Paredes DO - 02/14/2023 1:30 PM EDTAddended by: FERNIE PAREDES on: 02/14/2023 09:43 PM Modules accepted: Orders documented in this encounterLakehealth [facility] Center04-24-2023 Note* Addendum Note - Fernie Paredes DO - 02/14/2023 1:30 PM EDTAddended by: FERNIE PAREDES on: 02/14/2023 09:43 PM Modules accepted: Orders [facility]04-24-2023 Evaluation note* Diagnosis Type 2 diabetes mellitus [...] small intestine (without mention of hemorrhage) Esophagitis, [place] grade A Esophageal stenosis Stricture and stenosis [...] leukemia, without mention of having achieved remission ECONZ-21-Gkfapcim on 09-30-2020 Macrocytosis Other specified diseases of [...] osteoarthrosis, lower leg documented in this encounter [facility]04-24-[facility]23 Reason for referral (narrative)* Consultation (Routine) - New Request Specialty Diagnoses / Procedures Referred By Contac t Referred To Contact Nephrology Diagnoses Type 2 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 disease, without long-term current use of insulin Stage 3a chronic kidney disease Fernie Paredes DO [address] [place] [id number] Fernando Davison MD [address] [place] [address] Referral ID Status Reason Start Date Expiration Date V isits Requested Visits Authorized [id number] New Request 02/14/2023 03/10/2024 1 1 * Radiology (Routine) - Auth Not Needed Specialty Diagnoses / Procedures Referred By Contac t Referred To Contact Diagnoses Asymptomatic postmenopausal state Procedures BONE DENSITY AXIAL (HIP, PELVIS, SPINE) Fernie Paredes DO [address] [place] [address] Referral ID Status Reason Start Date Expiration Date V isits Requested Visits Authorized [id number] Auth Not Needed 02/14/2023 03/10/2024 1 1 [facility]04-14-2023 Instructions* Patient Instructions* Ciro Lyles MD - 02/04/2023 1:50 PM EDT If you have any questions please contact our office at [phone]. After office hours or on the weekend, please call Dr. Lyles on his cell phone at [phone]. documented in this encounterKindred Hospital [facility]ima04-14-2023 History of Present illness Narrative* Ciro Lyles [...] diagnosis, and treatment options. documented in this encounterKindred Hospital [facility]ima02-23-2023 Miscellaneous Notes* Op Note - Isreal Sigala [...] patient was then turned supine onto the [facility] and taken to recovery room in stable and satisfactory condition, having tolerated the procedure well. Dictated By: MD Isreal Cook MD ATTENDING OSKAR/MedVinayak JOB: [id number] DOC: [id number] * Brief Op Note - Isreal Sigala MD - 12/16/2022 8:21 AM EST POST OPERATIVE/PROCEDURE NOTE Elena Galeano ([id number]) SURGEON Surgeon(s) and Role: * sIreal Sigala MD - Primary PROCESS TECH None ANESTHESIOLOGIST PORT STEWARD: Memo Kay APRN-PORT STEWARD SURGICAL STAFF Loan Underwriter: Diana Rosales RN Scrub Person: Naty Duong [...] 16, 2022 8:21 AM documented [facility] this [facility]* Op Note - Isreal Sigala MD [...] patient was then turned supine onto the [facility] and taken to recovery room in stable and satisfactory condition, having tolerated the procedure well. Dictated By: MD Isreal Cook MD ATTENDING OSKAR/Jenniffer JOB: [id number] DOC: [id number] [facility] Work Phone: [phone] Nurse Note* Nery Germain RN - 12/16/2022 8:51 AM EST Discharge instructions reviewed with patient and her ; verbalized understanding and copy given to patient. * Diana Rosales RN - 12/16/2022 8:21 AM EST Transported to room 11 per REINIER SCHMITT and ROMAN RÍOS. Monitors applied. Report given to REINIER MALLOY. documented in this encounterLakehealth [facility]02-23-2023 Nurse Surgical operation note* Nery Germain RN - 12/16/2022 8:51 AM EST Discharge instructions reviewed with patient and her ; verbalized understanding and copy given to patient. [facility]02-23-[facility]23 Hospital Discharge instructions* Discharge Instructions* Nery Germain [...] to schedule your next appointment. Our number [phone]. documented in this encounterLakehealth [facility]02-23-2023 Note* Brief Op Note - Isreal Sigala MD - 12/16/2022 8:21 AM EST POST OPERATIVE/PROCEDURE NOTE Elena Galeano ([id number]) SURGEON Surgeon(s) and Role: * Isreal Sigala MD - Primary PROCESS TECH None ANESTHESIOLOGIST PORT STEWARD: Memo Kay APRN-PORT STEWARD SURGICAL STAFF Loan Underwriter: Diana Rosales RN Scrub Person: Naty Timmonsdanoeli [...] Sigala MD December 16, 2022 8:21 AM [facility]02-23-2023 Nurse Surgical operation note* Diana Rosales RN - 12/16/2022 8:21 AM EST Transported to room 11 per REINIER SCHMITT and ROMAN RÍOS. Monitors applied. Report given to REINIER MALLOY. [facility]02-20-2023 Miscellaneous Notes* Telephone Encounter - Shi [...] states her heart Dr. [place] at the [place] put her back on Carvedilol at 12.5 [...] monitor. Shi Morel APRN.CNP documented in this encounterKindred Hospital [facility]ima02-13-2023 Miscellaneous Notes* Telephone Encounter - Leila Palacios MA - 12/06/2022 2:30 PM EST Received forms from [facility] for patient's upcoming left total knee arthroplasty. Placed in Dr Frost's office documented in this encounterKindred Hospital [facility]ima02-01-2023 History of Present illness Narrative* Eddi Randhawa [...] tonsils. Eddi Randhawa MD documented in this encounterKindred Hospital [facility]ima01-30-2023 History of Present illness Narrative* Fernie Paredes, [...] Hepatomegaly Vitamin D deficiency Duodenal diverticulum Esophagitis, [place] grade A Esophageal stenosis Paroxysmal atrial fibrillation [...] ml/min Macrocytosis Seborrheic keratosis, inflamed-Left thigh-S/P Excision EHQIG-23-Aaochdif on 09-30-2020 Anxiety and depression Hyponatremia Vision [...] for PAP. Alaina 02-04-[address] Ciro Lyles.DC [employer]. Alaina 02-14-23, sooner prn. [...] choosing Dr. Fernie Paredes s Office at [facility] for your healthcare needs.The patients' entire past medical, surgical, family, social history, allergies, medications, recent labs, recentimaging and networks computer consultant letters were reviewed and updated. ASSESSMENT [...] Hepatomegaly Vitamin D deficiency Duodenal diverticulum Esophagitis, [place] grade A Esophageal stenosis Paroxysmal atrial fibrillation [...] ml/min Macrocytosis Seborrheic keratosis, inflamed-Left thigh-S/P Excision [id number] on 09-30-2020 Anxiety and depression Hyponatremia Vision [...] Rx started and given on 11-03-22 at [facility] for #30, 0rf's. 90 tablet 0 Pantoprazole [...] follow- up instructions. Fernie Paredes DO [address] [address] This note is electronically signed in the electronic medical record. documented in this encounterL[facility]01-30-[facility]23 Instructions* Patient Instructions* Fernie Paredes DO - 11/22/2022 1:30 PM EST Do NON fasting labs today documented in this encounterLake[facility]01-27-2023 Miscellaneous Notes* Telephone Encounter - Simona Mosquera [...] appointment line information provided. documented in this encounterKind[facility] History of Present illness Narrative* Tanya Whittington [...] 11/17/2022 11:56 AM Patient: Elena Galeano MR#: [id number] : 1960 Age: 62 y.o. Referring Physician: [...] Central retinal artery occlusion of left eye [id number] on 09-30-2020 Depression Diffuse non-Hodgkin's lymphoma chemotherapy [...] Laterality: N/A; Surgeon: Indra Parrish DO; Location: [facility] ONT ENDOSCOPY SHOULDER ARTHROSCOPY Left 06/18/2021 REMOVAL CENTRAL VENOUS ACCESS DEVICE TUNNELED W/ PORT PUMP Left 09/13/2019 Laterality: Left; Surgeon: Eduardo Muñoz MD; Location: [facility] INTERVENTIONAL RADIOLOGY (VIR) EGD W/ DILATION BALLOON N/A 06/30/2018 Laterality: N/A; Surgeon: Indra Parrish DO; Location: [facility] ONT ENDOSCOPY EGD DIAGNOSTIC N/A 04/07/2018 Laterality: N/A; Surgeon: Wilner Leigh MD; Location: [facility] ONT ENDOSCOPY COLONOSCOPY DIAGNOSTIC N/A 04/07/2018 Laterality: N/A; Surgeon: Wilner Leigh MD; Location: [facility] ONT ENDOSCOPY KNEE REPLACEMENT Right 05/2015 done at [place]--CC ARTHROPLASTY KNEE TOTAL Right 04/2015 INSERTION PICC [...] [x]cane, []bracing Are you followed by a food prep worker? [x] [] [facility] you followed by pain management? [...] mouth daily. Rx started and given at [facility] for21 days starting 11-03-22 Evolocumab (Lorie Buckner) 140 MG/ML Solution Auto-injector injection Inject 1 mL under the skin every 14 days. 2 mL 11 fenofibrate 160 MG tablet Take 1 tablet by mouth daily. 90 tablet 3 Lisinopril 5 MG tablet Take 1 tablet by mouth daily. Rx started and given on 11-03-22 at [facility] for #30, 0rf's. NON-FORMULARY 3 caps q [...] a left total knee arthroplasty for optimal terminal operations supervisor management. PHYSICAL EXAM: This is an alert, [...] joint space, subchondral sclerosis, osteophyte formation, and upxl-ak-wyjf contact. IMPRESSION: 1.) Severe symptomatic end-stage arthritis, [...] of limb, and ultimately loss of life. residential expectations, risks and general implant survivorship were also discussed. Despite these risks, the patient would like to proceed with surgical planning. Today, we will initiate the pre-surgical process including nasal MRSA screening, scheduling an appointment for [facility] and the potential surgical date, and reviewing [...] left eye CLL (chronic lymphocytic leukemia) 2012 [id number] on 09-30-2020 Depression Diffuse non-Hodgkin's lymphoma chemotherapy [...] ENDOSCOPY KNEE REPLACEMENT Right 05/2015 done at [place]--CC ARTHROPLASTY KNEE TOTAL Right 04/2015 INSERTION PICC [...] mouth daily. Rx started and given at [facility] for 21 days starting 11-03-22, Disp: , Rfl: Evolocumab (Repatha SureClick) 140 MG/ML Solution Auto-injector injection, Inject 1 mL under the skin every 14 days., Disp: 2 mL, Rfl: 11 fenofibrate 160 MG tablet, Take 1 tablet by mouth daily., Disp: 90 tablet, Rfl: 3 Lisinopril 5 MG tablet, Take 1 tablet by mouth daily. Rx started and given on 11-03-22 at [facility] for #30, 0rf's., Disp: , Rfl: NON-FORMULARY, [...] Reactions Nsaids Has CKD-2 documented in this encounterL[facility] Nurse Note* Leila Palacios MA - 11/17/2022 9:16 AM EST EVENT MONITOR DISPOSABLE PATCH INSTRUCTIONS Patient Name: Elena Galeano Clinic Number: [id number] Skin prepped and cleansed with alcohol Patch secured to prepped area Monitor Activated Serial #: [id number] Patient Instructed: Prescribed order timeframe Bathing guidelines Usage of event button and diary documentation Return of monitor at the end of prescribed order Call with problems [phone] or [phone]. [phone] Patient expresses a good understanding of instructions Leila Palacios MA documented in this encounterKind[facility]2023 Instructions* Patient Instructions* Laya Barillas APRN.CNP - 11/17/2022 8:45 AM EST Refills today to [facility] in [place] Please schedule with Neurology to discuss continuation [...] in January as scheduled. documented in this encounterKindred Hospital [facility]2023 History of Present illness Narrative* Laya Barillas APRN.JULISSA - 11/17/2022 8:11 AM EST Images from the original note were not included. [facility] [place] [facility] Department of Cardiovascular Medicine SECTION [...] 2012) and depression. She was admitted to [facility] for HTN urgency. She was seen in [...] She is a high thrombotic risk with HXD8SS1-OBEj score of 4 (increases to 5 in [...] which included preparing to see the patient, ygqi-lq-rbsz patient care, completing clinical documentation, performing a medically appropriate examination, counseling and educating the patient/family/caregiver, ordering medications, tests, or p rocedures, and communicating results to the patient/family/caregiver. Thank you very much for allowing me to assist in the care of Elena Galeano. Please do not hesitate to contact me if you have questions or concerns. Laya Barillas APRN.[facility] Cardiology Nurse Practitioner Section of [facility] Cardiology [facility] Dept of Cardiovascular Medicine [facility] [place] [address] [address] Office Office November 17, 2022 8:11 AM This note was partially generated using [employer] voice recognition system and may contain errors [...] ECG 1445 Confirmed by DAWN MACIAS DO ([id number]), social media editor MAGDIEL GILBERT ([id number]) on 11/10/2022 6:49:42 [...] and ROS obtained by others. Laya Barillas APRN.HYDRAULIC PRESS SERVICER CURRENT MEDICATIONS: Current Outpatient Medications Medication Sig [...] medications for this visit. documented in this encounterKindred Hospital [facility]01-20-2023 NoteHNO ID: [id number] Author: Taylor Hutton (As400 Programmer) Service: Pharmacy Author Type: ? Type: Plan of Care Filed: 11/12/2022 4:33 PM Note Text: PHARMACY BEDSIDE DELIVERY SERVICE Patient Name: Elena Galeano The marked outpatient medications were Filled at: [place] and delivered to the patient's bedside to [facility] Medication List START taking these medications [...] tablet Commonly known as: LOFIBRA Taylor Hutton (As400 Programmer) PAGER: [phone] November 12, 2022 4:32 PMGeorgetown Behavioral [id number] NoteHNO ID: [id number] Author: Manohar Rao MD Service: Hospital Medicine Author Type: Physician Type: Progress Notes Filed: 11/12/2022 10:54 AM Note Text: DEPARTMENT OF HOSPITAL MEDICINE PROGRESS NOTE SERVICE DATE: 11/12/2022 SERVICE TIME: 10:52 AM Hospital Medicine/Primary Attending: Manohar Rao MD NIGHT AND WEEKEND COVERAGE: CHARDON COVERAGE: Days: [phone], please page attending physician. Nights: [phone], please page [place] Hospitalist Night coverage pager [phone]. Subjective INTERVAL HPI: No acute events overnight. [...] Paroxysmal atrial fibrillation - (more content not included)...[facility] HospitalIrkmxjlo45-12-5850 NoteHNO ID: [id number] Author: Sarah Kerr RN Service: Care Management [...] 11, 2022 TIME: 1:24 PM PAGER/CONTACT #: [phone] NoteHNO ID: [id number] Author: Manohar Rao MD Service: Hospital Medicine Author Type: Physician Type: Progress Notes Filed: 11/11/2022 12:14 PM Note Text: DEPARTMENT OF HOSPITAL MEDICINE PROGRESS NOTE SERVICE DATE: 11/11/2022 SERVICE TIME: 12:13 PM Hospital Medicine/Primary Attending: Crow Curiel MD NIGHT AND WEEKEND COVERAGE: CHARDON COVERAGE: Days: [phone], please page attending physician. Nights: [phone], please page [place] Hospitalist Night coverage pager [phone]. Subjective INTERVAL HPI: Patient is still in [...] monitor blood pressure titrate (more content not included)...[facility] HospitalOxdbfbxg53-09-6655 Miscellaneous Notes* Telephone Encounter - Simona Mosquera RN - 11/11/2022 10:06 AM EST Patient called to request Zio monitor be sent to her home, rather than coming in for the appointment. Fax sent to [facility]. * Telephone Encounter - Simona Mosquera RN - 11/11/2022 8:29 AM EST Patient called to ask about applying Zio monitor after discharge from hospital. Returned patient call, left vm; offered options for nurse visit or to have monitor mailed to home. documented in this encounterKindred Hospital [facility]ima01-18-2023 NoteHNO ID: [id number] Author: Sarah Kerr RN Service: Care Management Author Type: Registered Nurse Type: Care Mgt Initial Assessment Filed: 11/10/2022 2:34 PM Note Text: CARE MANAGEMENT: ASSESSMENT AND DISCHARGE PLAN SERVICE DATE: November 10, 2022 SERVICE TIME: 1100 PRIMARY CARE PHYSICIAN: Fernie Paredes DO Primary Contact: Extended Emergency Contact Information Primary Emergency Contact: Ashu Galeano Address: [address] [place], [place] [id number] [facility] Mobile Relation: Spouse ADMISSION STATUS: Inpatient Insurance Provider: MMO SUPERMED PLUS NEEDS PRIOR TO DISCHARGE Needs Prior to Discharge: None;Discharge Prescriptions POTENTIAL TRANSITION PLANS No Services Indicated Based on clinical judgement, Care Management will address the following needs: Medical Patient's perception of need for this admission: HTN urgency ADVANCE DIRECTIVES Current Advance Directive: None Senior Cognos Developer Attempted to Assist with AD Completion: Yes [...] avoid readmission were identified: Yes PATIENT SCREEN Patient/Core Mounter Stated Goals: To have reduction in symptoms;To [...] Completely I feel financially burdened by my igm-rh-akcgjn expenses for my prescription medication:: 0 - Disagree Completely Risk Score: 0 Patient is categorized as: Low risk < 2 No social discharge barriers identified at this time. No behavioral/cognitive discharge barriers identified at this time. No functional discharge barriers identified at this time. FREEDOM OF CHOICE EXPLAINED: [place] of Choice Given: No Reason Not Given: [...] 10, 2022 TIME: 2:28 PM CONTACT #: [id number] [id number] NoteHNO ID: [id number] Author: Manohar Rao MD Service: Hospital Medicine Author Type: Physician Type: Progress Notes Filed: 11/10/2022 4:23 PM Note Text: DEPARTMENT OF HOSPITAL MEDICINE PROGRESS NOTE SERVICE DATE: 11/10/2022 SERVICE TIME: 1:02 PM Hospital Medicine/Primary Attending: Crow Curiel MD NIGHT AND WEEKEND COVERAGE: CHARDON COVERAGE: Days: [phone], please page attending physician. Nights: [phone], please page [place] Hospitalist Night coverage pager [phone]. Subjective INTERVAL HPI: A 62-year-old female with [...] smoker (quit 2012), depression, (more content not included)...[facility] HospitalBjbigpad00-67-8011 Note HNO ID: [id number] Author: Crow Curiel MD Service: Critical Care [...] on 11/10/2022 Crow Curiel MD 11:14 AM 11/10/2022[facility] HospitalYwfjgakj81-83-7682 Miscellaneous Notes* Telephone Encounter - Maddie Diehl - 11/10/2022 9:02 AM EST Patient called because she is currently in ICU and cant make her appointment today, but would like to receive a phone call about her results from her sleep study. documented in this encounterKindred Hospital [facility]ima01-17-2023 NoteHNO ID: [id number] Author: Marcus Hodges MD Service: eHospital Author [...] Collaboration: Plan of care discussed with eHospital Change Management Administrator SIGNATURE: Marcus Hodges MD PATIENT NAME: Elena Galeano DATE: November 09 2022 TIME: 07:13 PMGeorgetown Behavioral HospitalWzxsifss32-13-4978 History of Past illness Narrative* Problem Noted Date Resolved Date Hypertensive urgency 11/09/2022 11/12/2022 Paroxysmal atrial fibrillation 10/31/2022 0 11/01/2022 Osteoarthrosis, unspecified whether generalized or localized, lower leg 05/19/2015 05/19/2015 Lymphocytosis 12/16/2011 09/01/2012 Splenomegaly 12/16/2011 09/01/2012 documented as of this encounter (statuses as of 11/17/2022) [facility]01-17-[facility] History of Past illness Narrative* Problem Noted Date Resolved Date Hypertensive urgency 11/09/2022 11/12/2022 Paroxysmal atrial fibrillation 10/31/2022 0 11/01/2022 Osteoarthrosis, unspecified whether generalized or localized, lower leg 05/19/2015 05/19/2015 Lymphocytosis 12/16/2011 09/01/2012 Splenomegaly 12/16/2011 09/01/2012 documented as of this encounter (statuses as of 11/17/2022) [facility] History of Past illness Narrative* Problem Noted Date Resolved Date Hypertensive urgency 11/09/2022 11/12/2022 Paroxysmal atrial fibrillation 10/31/2022 0 11/01/2022 Osteoarthrosis, unspecified whether generalized or localized, lower leg 05/19/2015 05/19/2015 Lymphocytosis 12/16/2011 09/01/2012 Splenomegaly 12/16/2011 09/01/2012 documented as of this encounter (statuses as of 11/19/2022) [facility] History of Past illness Narrative* Problem Noted Date Resolved Date Hypertensive urgency 11/09/2022 11/12/2022 Paroxysmal atrial fibrillation 10/31/2022 0 11/01/2022 Osteoarthrosis, unspecified whether generalized or localized, lower leg 05/19/2015 05/19/2015 Lymphocytosis 12/16/2011 09/01/2012 Splenomegaly 12/16/2011 09/01/2012 documented as of this encounter (statuses as of 11/24/2022) [facility] History of Past illness Narrative* Problem Noted Date Resolved Date Hypertensive urgency 11/09/2022 11/12/2022 Paroxysmal atrial fibrillation 10/31/2022 0 11/01/2022 Osteoarthrosis, unspecified whether generalized or localized, lower leg 05/19/2015 05/19/2015 Lymphocytosis 12/16/2011 09/01/2012 Splenomegaly 12/16/2011 09/01/2012 documented as of this encounter (statuses as of 12/06/2022) [facility] History of Past illness Narrative* Problem Noted Date Resolved Date Hypertensive urgency 11/09/2022 11/12/2022 Paroxysmal atrial fibrillation 10/31/2022 0 11/01/2022 Osteoarthrosis, unspecified whether generalized or localized, lower leg 05/19/2015 05/19/2015 Lymphocytosis 12/16/2011 09/01/2012 Splenomegaly 12/16/2011 09/01/2012 documented as of this encounter (statuses as of 12/13/2022) [facility] History of Past illness Narrative* Problem Noted Date Resolved Date Hypertensive urgency 11/09/2022 11/12/2022 Paroxysmal atrial fibrillation 10/31/2022 0 11/01/2022 Osteoarthrosis, unspecified whether generalized or localized, lower leg 05/19/2015 05/19/2015 Lymphocytosis 12/16/2011 09/01/2012 Splenomegaly 12/16/2011 09/01/2012 documented as of this encounter (statuses as of 02/05/2023) [facility] History of Past illness Narrative* Problem Noted Date Resolved Date Hypertensive urgency 11/09/2022 11/12/2022 Paroxysmal atrial fibrillation 10/31/2022 0 11/01/2022 Osteoarthrosis, unspecified whether generalized or localized, lower leg 05/19/2015 05/19/2015 Lymphocytosis 12/16/2011 09/01/2012 Splenomegaly 12/16/2011 09/01/2012 documented as of this encounter (statuses as of 04/07/2023) [facility] History of Past illness Narrative* Problem Noted Date Diagnosed Date Resolved Date Hypertensive urgency 11/09/2022 023 Paroxysmal atrial fibrillation 10/31/2022 11/01/2022 Osteoarthrosis, unspecified whether generalized or localized, lower leg 05/19/201504/24 Lymphocytosis 12/16/2011 09/01/2012 Splenomegaly 12/16/2011 09/01/2012 documented as of this encounter (statuses as of 05/31/2023) [facility] History of Past illness Narrative* Problem Noted Date Diagnosed Date Resolved Date Hypertensive urgency 11/09/2022 023 Paroxysmal atrial fibrillation 10/31/2022 11/01/2022 Osteoarthrosis, unspecified whether generalized or localized, lower leg 05/19/201504/24 Lymphocytosis 12/16/2011 09/01/2012 Splenomegaly 12/16/2011 09/01/2012 documented as of this encounter (statuses as of 07/01/2023) [facility] History of Past illness Narrative* Problem Noted Date Diagnosed Date Resolved Date Hypertensive urgency 11/09/2022 023 Paroxysmal atrial fibrillation 10/31/2022 11/01/2022 Osteoarthrosis, unspecified whether generalized or localized, lower leg 05/19/201504/24 Lymphocytosis 12/16/2011 09/01/2012 Splenomegaly 12/16/2011 09/01/2012 documented as of this encounter (statuses as of 08/06/2023) [facility] History of Past illness Narrative* Problem Noted Date Diagnosed Date Resolved Date Hypertensive urgency 11/09/2022 023 Paroxysmal atrial fibrillation 10/31/2022 11/01/2022 Osteoarthrosis, unspecified whether generalized or localized, lower leg 05/19/201504/24 Lymphocytosis 12/16/2011 09/01/2012 Splenomegaly 12/16/2011 09/01/2012 documented as of this encounter (statuses as of 08/09/2023) [facility] History of Past illness Narrative* Problem Noted Date Diagnosed Date Resolved Date Hypertensive urgency 11/09/2022 023 Paroxysmal atrial fibrillation 10/31/2022 11/01/2022 Osteoarthrosis, unspecified whether generalized or localized, lower leg 05/19/201504/24 Lymphocytosis 12/16/2011 09/01/2012 Splenomegaly 12/16/2011 09/01/2012 documented as of this encounter (statuses as of 08/16/2023) [facility] History of Past illness Narrative* Problem Noted Date Diagnosed Date Resolved Date Hypertensive urgency 11/09/2022 023 Paroxysmal atrial fibrillation 10/31/2022 11/01/2022 Mixed hyperlipidemia 02/04/2017 023 Osteoarthrosis, unspecified whether generalized or localized, lower leg 05/19/201504/24 Lymphocytosis 12/16/2011 09/01/2012 Splenomegaly 12/16/2011 09/01/2012 documented as of this encounter (statuses as of 09/11/2023) [facility]01-13-[facility] Instructions* Patient Instructions* Ciro Lyles MD - 11/05/2022 4:39 PM EST If you have any questions please contact our office at [phone]. After office hours or on the weekend, please call Dr. Lyles on his cell phone at [phone]. documented in this encounterKindred Hospital [facility]ima01-13-2023 History of Present illness Narrative* Ciro Lyles [...] diagnosis, and treatment options. documented in this encounterKindred Hospital [facility]ima01-09-2023 NoteHNO ID: [id number] Author: Martell Crespo MD Service: Hospital Medicine Author Type: Physician Type: Progress Notes Filed: 11/01/2022 5:16 PM Note Text: DEPARTMENT OF HOSPITAL MEDICINE PROGRESS NOTE SERVICE DATE: 11/01/2022 SERVICE TIME: 5:13 PM Hospital Medicine/Primary Attending: Martell Crespo MD NIGHT AND WEEKEND COVERAGE: CHARDON COVERAGE: Days: [phone], please page attending physician. Nights: [phone], please page [place] Hospitalist Night coverage pager [phone]. Subjective INTERVAL HPI: able to walk to [...] Class II, BMI 35-39.9 POA: Yes - benefits counselor Medication and Non-Pharmacologic VTE Prophylaxis/Anticoagulants Anticoagulant AND Antiplatelet Medications (From admission, onward) Start Dose Route Frequency Last Action Ordered Stop 10/31/22 1200 enoxaparin 100 mg injection (LOVENOX) (enoxaparin injection (LOVENOX)) 1 mg/kg/dose SUBCUTANEOUS EVERY 12 HOURS Given, 11/01 1304 10/31/22 1158 -- 10/31/22 0900 aspirin, enteric coated 81 mg tab(s) 81 mg ORAL DAILY Given, (more content not included)...[facility] 11-01-2022 Instructions* Patient Instructions* Ciro Lyles MD - 11/01/2022 9:32 AM EST If you have any questions please contact our office at [phone]. After office hours or on the weekend, please call Dr. Lyles on his cell phone at [phone]. documented in this encounterKindred Hospital [facility]ima01-09-2023 NoteHNO ID: [id number] Author: Ketty Sandhu MD Service: Neurology General [...] Sandhu M.D. Neurology/Neuromuscular medicine Neurology board certified [facility]01-09-2023 History of Present illness Narrative* Danielle Garcia - 11/01/2022 6:49 AM EST Sleep Study Check-In Documentation Date: November 01, 2022 Name: Elena Galeano Comments: HST was returned in working order with all sleep questionnaires Danielle Garcia * Kira Quinn - 10/26/2022 11:07 AM EST [facility]# [id number] , date shipped out 10/26/21 Tracking mailout:[id number] Tracking return: [phone] * Cahr Andino - 10/13/2022 10:55 AM EST Patient [...] Garcia - 10/07/2022 7:54 AM EST [employer]# [id number] Mail out date:10/07/22 [employer] Shipping #:[phone] [employer] Return #:[id number] * Gerry Herman III, PhD - 09/30/2022 1:24 PM EST September 30, 2022 Standing PSG Orders signed in the last 90 days None Future PSG Orders signed in the last 90 days Ordered Auth. provider HOME SLEEP APNEA TEST (HSAT) [[id number]] 09/28/22 Eddi Randhawa MD Assoc. diagnoses: PERCY [...] Herman III, PhD 3:25 PM, 09/30/2022 * Alhtea Kingsley - 09/29/2022 12:05 PM EST September 29, 2022 An order has been received for Home Sleep Apnea Test (HSAT) from [facility]. [facility] Staff. Visit prep complete. Comments :No The sleep study is scheduled for 10/11. Insurance: Payor: MMO / Plan: MMO SUPERMED PLUS / Product Type: PPO / Payer/Plan Subscr Sex Relation Sub. Ins. ID Effective Group Num 1. MMO - MMO SUP* ASHU GALEANO 05/10/1959 Male Spouse [id number] 04/23/20 [id number] [address] Althea Kingsley documented in this encounterKindred Hospital [facility]ima01-08-2023 NoteHNO ID: [id number] Author: Martell Crespo MD Service: Hospital Medicine [...] statins and is on repatha per her food prep worker. Martell Crespo MD 10/31/22 4:08 PMGeorgetown Behavioral HospitalKjuhlzkc41-17-5235 History of Past illness Narrative* Problem Noted Date Resolved Date Paroxysmal atrial fibrillation 10/31/2022 0 11/01/2022 Osteoarthrosis, unspecified whether generalized or localized, lower leg 05/19/2015 05/19/2015 Lymphocytosis 12/16/2011 09/01/2012 Splenomegaly 12/16/2011 09/01/2012 documented as of this encounter (statuses as of 11/01/2022) [facility] History of Past illness Narrative* Problem Noted Date Resolved Date Paroxysmal atrial fibrillation 10/31/2022 0 11/01/2022 Osteoarthrosis, unspecified whether generalized or localized, lower leg 05/19/2015 05/19/2015 Lymphocytosis 12/16/2011 09/01/2012 Splenomegaly 12/16/2011 09/01/2012 documented as of this encounter (statuses as of 11/05/2022) [facility] History of Past illness Narrative* Problem Noted Date Resolved Date Paroxysmal atrial fibrillation 10/31/2022 0 11/01/2022 Osteoarthrosis, unspecified whether generalized or localized, lower leg 05/19/2015 05/19/2015 Lymphocytosis 12/16/2011 09/01/2012 Splenomegaly 12/16/2011 09/01/2012 documented as of this encounter (statuses as of 11/11/2022) [facility] History of Present illness Narrative* Ciro Lyles MD - 10/30/2022 1:30 PM EST ASSESSMENT/PLAN: 1. Central retinal artery occlusion, left eye - ICD9: 362.31, ICD10: H34.12 (primary diagnosis) 2. Sudden loss of vision, left - ICD9: 368.11, ICD10: H53.132 3. Headache, temporal - ICD9: 784.0, ICD10: R51.9 - AQUEOUS TAP, THERAPEUTIC OS (LEFT EYE) Patient to go to [place] [facility] department immediately for stroke work up [...] options. Ciro Lyles MD documented in this encounterKindred Hospital Lima12-07-2022 History of Present illness Narrative* Naty Bhakta [...] B12 deficiency CLL (chronic lymphocytic leukemia) 2012 FGDIT-62-Bvetirsi on 09-30-2020 Depression Diffuse non-Hodgkin's lymphoma chemotherapy [...] Auto 2.79 1.16 - 3.51 K/uL Abs [place] Auto 0.57 0.22 - 0.87 K/uL Abs [...] with the discharge instructions. [facility] Instructions* Patient Instructions* Miri Vargas RN - 09/29/2022 12:40 PM EST YOUR PRIMARY TEAM Dr. Naty Echols CNP - Nurse Practitioner Sujit Thomason RN - Primary Nurse Miri Alicia, RN- Secondary Nurse Please contact our office if you develop a temperature of 100.4 or greater. CONTACT NUMBERS Clinic phone: [phone] Clinic fax: [phone] MEDICAL RECORDS The Release of Information ([facility]) area is staffed from 8:00 a.m. to 7:00 p.m. and is available for walk in requests from 8:00 a.m. to 4:30 p.m. [facility] is responsible for answering requests for copies of medical records from various requestors such as insurance companies, attorneys, hospitals and patients. Please note it can take up to 2 weeks to complete your request. [phone]; [phone] (fax). DISABILITY FORMS This category includes any [...] our team about the suggested recovery time. [employer] Newsletter is a secure way to get access to your labs online. In most instances, your test results are released to your [employer] account after your physician has reviewed them. [...] For non-emergent concerns, please send us a TeliApp message but describe your issue fully. As an example, tell us how long you've had the symptom, what makes it better or worse, what you've done for it already) and one of our nurses or nurse practitioners will respond kenneth. For questions or concerns regarding [employer]eliApp access or technical dificulties, please call [phone] or toll free at . Results for [...] Auto 2.79 1.16 - 3.51 K/uL Abs [place] Auto 0.57 0.22 - 0.87 K/uL Abs Eos Auto 0.09 0.00 - 0.42 K/uL Abs Baso Auto <0.04 0.00 - 0.15 K/uL documented in this encounterU [facility] History of Present illness Narrative* Dariusz Rangel [...] within this encounter was likely aided with Cardiovascular Systemson, and electronic literacy coach device. Please excuse any errors or omissions that may not have been recognized at the time of this encounter. documented in this encounterL[facility]12-[facility] History of Present illness Narrative* Eddi Randhawa [...] enlargement. Eddi Randhawa MD documented in this [facility] NoteTherapy Diagnosis Assessed Sacroiliitis (720.2) (M46.1) Plan [...] from a 7 to a 4 at [place]. 4) Improve LBP from 3/10 to <= [...] Insurance Insurance reviewed Visit number: 8 4/ [facility] Ins: 25 visits per year Dx: Sacroillitis [...] R TKR, L shoulder scope 11/2021. Precautions: Crockett Back precautions (No lifting > 10#, no excessive bending or twisting) dueto s/p SI surgery on 06/19/2022 with 3 permanent pins for her SI joint. Treatment Time in clinic started at 10:45 am Time in clinic ended at 11:15 am Total time in clinic is 30 minutes. Total timed code time is 25 minutes. Therapeutic exercise (02823): timed minutes 25, units 2 . Bike [...] progression: leg marches (more content not included)... [id number] History of Present illness Narrative* Fernie M [...] without esophagitis Duodenal diverticulum Esophageal stenosis Esophagitis, [place] grade A Anemia, unspecified type Hepatomegaly Unspecified [...] stress and urge incontinence Renal cyst, right WXZFB-13-Xohggbzs on 09-30-2020 Seborrheic keratosis, inflamed-Left thigh-S/P Excision [...] with her. Re-schedule with DR. Chaudhry at [facility] son, as was due back in with her. Schedule with Sleep Specialist at in [place] son to discuss oral appliance as inconsistently uses BiPAP. Alaina 08-31-[address] Rangel for bladder surgery. Alaina 09-02-[address] Blackwood. Alaina with DR. Sigala. Check fasting, well hydrated CBC, CMP, A1C, Lipid, TSH, UA, Vit D, Fe, TIBC, Ferritin, B12 and Folate on approx 11-02-22 at [facility] lab. Alaina 11-19-22, sooner prn. Alaina 02-03-23 with 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 for PAP. Alaina 3-D Mammogram and DEXA in . Refill Myrbetriq either with Dr. Rangel or will re-refer to Jonathan Cm NP. Will give Pneumovax-23 in . Alaina 05-03-[address] Calderon. Alaina PFT in . Alaina Colon in. Hold alaina with Dr. León Hernandez in [place]. Total time spent 31 minutes, excludingtests and procedures. Diet and lifestyle counseling was given, and care coordinated. OARRS report was received and assessed, and is consistent with the medications prescribed.Thank you for choosing Dr. Fernie [facility]aredes s [facility] for your [facility].The patients' entire past medical, surgical, family, social history, allergies, medications, recent labs, recent imaging and networks computer consultant letters were reviewed and updated. ASSESSMENT [...] without esophagitis Duodenal diverticulum Esophageal stenosis Esophagitis, [place] grade A Anemia, unspecified type Hepatomegaly Unspecified [...] stress and urge incontinence Renal cyst, right JVTDK-15-Nssknrqx on 09-30-2020 Seborrheic keratosis, inflamed-Left thigh-S/P Excision [...] up instructions. Fernie Paredes DO [address] [place] [id number] This note is electronically signed in the electronic medical record. documented in this encounterLake[facility]10-28-2022 Instructions* Patient Instructions* Fernie Paredes DO - 08/20/2022 1:30 PM EDT Do fasting, well hydrated labs on approx 11-02-22 documented in this encounterLakehealth [facility]10-17-2022 History of Present illness Narrative* Radha Saleh [...] B12 deficiency CLL (chronic lymphocytic leukemia) 2012 LLYRC-06-Nqakdvex on 09-30-2020 Depression Diffuse non-Hodgkin's lymphoma chemotherapy [...] Return for post op. documented in this [facility]09-15-[facility] History of Present illness Narrative* Dariusz Rangel [...] well as PCP and recommended f/u with tire mechanic. Denies pressure or prolapse symptoms. 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 Patient with no new symptoms. Face to face time with this patient was approximately 30 minutes with greater than 50% of the time spent in consultation and / or in coordination of care. Return for with TKH, Post op visit. The documentation within this encounter was likely aided with Dragon, and electronic literacy coach device. Please excuse any errors or omissions that may not have been recognized at the time of this encounter. documented in this encounterLake[facility]08-30-2022 History of Present illness Narrative* S/P L SI fusion last yr. Pending R SI fusion. The L SI was injected yesterday. Will continue with lumbar and pelvic floor stability exercises. The patient preferred that pool be included in her program. * Clinical Presentation: Stable and/or uncomplicated characteristics. * Level of Complexity: low [facility] Work Phone: 1(659) 799-407408-27-2022 History of Present illness Narrative* The pt [...] range of motion/joint mobility and strength. [facility] Work Phone: [phone]) 416-999508-25-2022 History of Present illness Narrative* Yumiko Sierra, [...] railing 3 - A Little Assistance [facility] Raw Score 18 [facility] Functional Limitation/Modifier 46.58% Currently Impaired [...] Completed? yes Therapist Information [place] # [id number] General Information Pertinent History of Current Problem Ongoing pain and instability Yumiko Sierra PT documented in this [facility]08-25-2022 Hospital Discharge instructions* Discharge Instructions* Iraj Hooker [...] this carefully. Please attend family, community and lutheran events as soon as possible after your [...] breath, chest pain, or abnormal coughing, CALL [phone] FOLLOW UP APPOINTMENT: Call Dr. Sigala s [...] sent through Care Everywhere. * General Anesthesia (Maldivian) documented in this [facility]08-25-[facility] Nurse Surgical operation note* Iraj Hooker RN - 06/17/2022 12:10 PM EDT PT present in bay working with patient. [facility]08[facility] Nurse Note* Iraj Hooker RN - 06/17/2022 12:10 PM EDT PT present in bay working with patient. documented in this encounterLakehealth [facility]08-25-2022 Note* Brief Op Note - Isreal Sigala MD - 06/17/2022 10:24 AM EDT POST OPERATIVE/PROCEDURE NOTE Elena Galeano ([id number]) SURGEON Surgeon(s) and Role: * Isreal Sigala MD - Primary PROCESS TECH Fahad ANESTHESIOLOGIST PORT STEWARD: Francois Ashford APRN-PORT STEWARD SURGICAL STAFF Loan Underwriter: Clara Mello RN Scrub Person: Samia Rosales Mechanical Repair Worker: Sarah Vásquez RN PROCEDURE PERFORMED Procedure(s) (LRB): [...] Sigala MD June 17, 2022 10:24 AM [facility]08-25-2022 Miscellaneous Notes* Brief Op Note - Isreal Sigala MD - 06/17/2022 10:24 AM EDT POST OPERATIVE/PROCEDURE NOTE Elena Galeano ([id number]) SURGEON Surgeon(s) and Role: * Isreal Sigala MD - Primary PROCESS TECH Fahad ANESTHESIOLOGIST PORT STEWARD: Francois Ashford APRN-PORT STEWARD SURGICAL STAFF Loan Underwriter: Clara Mello RN Scrub Person: Samia Rosales Mechanical Repair Worker: Sarah Vásquez RN PROCEDURE PERFORMED Procedure(s) (LRB): [...] 17, 2022 10:24 AM documented in this [facility]08-15-[facility] History of Present illness Narrative* Dariusz Rangel [...] well as PCP and recommended f/u with tire mechanic. Denies pressure or prolapse symptoms. 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 UWFPW-09-Gblomyuw on 09-30-2020 Fatigue Urinary frequency ASCUS of [...] B12 deficiency CLL (chronic lymphocytic leukemia) 2011 JKSOO-49-Masfckgu on 09-30-2020 Depression Diffuse non-Hodgkin's lymphoma chemotherapy Folate deficiency GERD (gastroesophageal reflux disease) Hiatal hernia Hyperglycemia Hyperlipidemia Hypertension Non-Hodgkin lymphoma 2011 PERCY (obstructive sleep apnea) PVC's (premature ventricular contractions) Allergies Allergen Reactions Nsaids Has CKD-2 Past Surgical History: Procedure Laterality Date EGD W/ DILATION BALLOON N/A 12/01/2021 Laterality: N/A; Surgeon: Indra Parrish DO; Location: [facility] ENDOSCOPY SHOULDER ARTHROSCOPY Left 06/18/2021 REMOVAL CENTRAL VENOUS ACCESS DEVICE TUNNELED W/ PORT PUMP Left 09/13/2019 Laterality: Left; Surgeon: Eduardo Muñoz MD; Location: [facility] INTERVENTIONAL RADIOLOGY (VIR) EGD W/ DILATION BALLOON N/A 06/30/2018 Laterality: N/A; Surgeon: Indra Parrish DO; Location: [facility] ENDOSCOPY EGD DIAGNOSTIC N/A 04/07/2018 Laterality: N/A; Surgeon: Wilner Leigh MD; Location: [facility] ENDOSCOPY COLONOSCOPY DIAGNOSTIC N/A 04/07/2018 Laterality: N/A; Surgeon: Wilner Leigh MD; Location: [facility] ENDOSCOPY ARTHROPLASTY KNEE TOTAL [...] and genital sores. Symptoms as noted in [place] Musculoskeletal: Negative for arthralgias, back pain, gait [...] within this encounter was likely aided with Cardiovascular Systemson, and electronic literacy coach device. Please excuse any errors or omissions that may not have been recognized at the time of this encounter. documented in this encounterLake[facility]08-03-2022 History of Present illness Narrative* Fernie Mcgill [...] without complication Chronic sinusitis, unspecified location Esophagitis, [place] grade A Esophageal stenosis Duodenal diverticulum Chronic [...] [place] options with PERCY oral device, in [place] soon. COVID-19 vaccine declined. Risks discussed. Check testing on 05-28-[address] Rangel and alaina on 06-07-[address] Rangel who should refill Myrbetriq in when due if he tells the patient to remain on it, as she will not be recking with Jonathan Cm NP. Alaina with Optho Dr. Warren at [facility]. Alaina 08-04-[address] Naty Bhakta and get Flu with her. Hold alaina with Dr. Nicole at patients' request. Alaina with Calista Blum NP at with Dr. León Casey [facility] in [place]. Alaina 08-18-22, sooner prn. Alaina all labs,UA, [...] choosing Dr. Fernie Paredes s [facility] at [facility] for your healthcare needs.The patients' entire past medical, surgical, family, social history, allergies, medications, recent labs, recent imaging and networks computer consultant letters were reviewed and updated. ASSESSMENT [...] without complication Chronic sinusitis, unspecified location Esophagitis, [place] grade A Esophageal stenosis Duodenal diverticulum Chronic [...] follow- up instructions. Fernie Paredes DO [address] [address] This note is electronically signed in the electronic medical record. documented in this encounterLakehealth [facility] Center06-24-2022 History of Present illness Narrative* Jonathan Cm [...] exam; Hepatomegaly; Chronic obstructive pulmonary disease; Esophagitis, [place] grade A; Obesity (BMI 30.0-34.9); Idiopathic chronic [...] eyes; Blepharitis of upper eyelids of botheyes; BZIPC-90-Zwfvalwq on 09-30-2020; Fatigue; Urinary frequency; ASCUS of [...] eyes daily. Given by Dr. Warren at [facility] No current facility-administered medications for this visit. [...] 60-89 ml/min COPD (chronic obstructive pulmonary disease) IJEUY-77-Cvifrtle on 09-30-2020 Depression Diabetes mellitus Diffuse non-Hodgkin's [...] neg 04/16/2022 PVR: 42 documented in this encounterLakehealth [facility] Center06-24-2022 Miscellaneous Notes* Addendum Note - Jonathan Cm CNP - 04/16/2022 1:00 PM EDTAddended by: JONATHAN CM on: 04/16/2022 03:53 PM Modules accepted: Level of Service documented in this encounterLakehealth [facility]06-24-2022 Note* Addendum Note - Jonathan Cm CNP - 04/16/2022 1:00 PM EDTAddended by: JONATHAN CM on: 04/16/2022 03:53 PM Modules accepted: Level of Service [facility]05-31-2022 Instructions* Patient Instructions* Fernie Paredes DO - 03/23/2022 1:51 PM EDT Do fasting, well hydrated labs on approx 06-08-22 documented in this encounterLakehealth [facility] Center05-31-2022 History of Present illness Narrative* Fernie Paredes [...] deficiency Hepatomegaly Fatty liver Duodenal diverticulum Esophagitis, [place] grade A Esophageal stenosis Hypertriglyceridemia Chronic midline [...] stress and urge incontinence Renal cyst, right UAGNX-76-Lwsgvkfn on 09-30-2020 CLL (chronic lymphocytic leukemia) Macrocytosis [...] #7, 0 rf's. If persists, alaina with Mobile Ui Designer and/or Urology. COVID-19 vaccines declined. Risks discussed. [...] B12 and Folate on approx 06-08-22 at [facility] lab. Alaina 06-15-22, sooner prn. Alaina with Dr. Calista Blum,STAFF SOFTWARE ENGINEER with Dr. Sylvester, Ortho in [facility]. Alaina with DR. Warren at [facility]. Alaina 08-04-[address] Naty Bhakta, Oncology [...] choosing Dr. Fernie [facility]aredes s [facility] foryour healthcare needs.The patients' entire past medical, surgical, family, social history, allergies, medications, recent labs, recent imaging and networks computer consultant letters were reviewed and updated. ASSESSMENT [...] deficiency Hepatomegaly Fatty liver Duodenal diverticulum Esophagitis, [place] grade A Esophageal stenosis Hypertriglyceridemia Chronic midline [...] stress and urge incontinence Renal cyst, right DPAZC-65-Ocmnhewq on 09-30-2020 CLL (chronic lymphocytic leukemia) Macrocytosis [...] Routine Referral Type: Consultation Referred to Provider: Jaswinder Mcginnis MD Number of Visits Requested: 1 [...] eyes daily. Given by Dr. Warren at [facility] No current facility-administered medications for this visit. Counseling given: No Follow up appointment(s) have been discussed with the patient. The patient is given an After Visit Summary sheet that lists all of their medications with directions, their allergies, orders placed during this encounter, immunization dates, and follow- up instructions. Fernie Paredes DO [address] [address] This note is electronically signed in the electronic medical record. documented in this encounterLakehealth [facility] Center04-14-2022 History of Present illness Narrative* Hemalatha Puente [...] eyes daily. Given by Dr. Warren at [facility], Disp: , Rfl: Family History Problem Relation [...] BALLOON N/A 06/30/2018 Laterality: N/A; Surgeon: Indra aPrrish DO; Location: [facility] EGD DIAGNOSTIC [...] Appropriate affect. Normal insight. Normal judgment. * Noreen Mcarthur - 02/04/2022 8:30 AM EDT Interval [...] eyes daily. Given by Dr. Warren at [facility], Disp: , Rfl: Family History Problem Relation [...] Laterality: N/A; Surgeon: Indra Parrish DO; Location: [facility] ENDOSCOPY SHOULDER ARTHROSCOPY Left 06/18/2021 REMOVAL CENTRAL VENOUS ACCESS DEVICE TUNNELED W/ PORT PUMP Left 09/13/2019 Laterality: Left; Surgeon: Eduardo Muñoz MD; Location: [facility] INTERVENTIONAL RADIOLOGY (VIR) EGD W/ DILATION BALLOON N/A 06/30/2018 Laterality: N/A; Surgeon: Indra Parrish DO; Location: [facility] EGD DIAGNOSTIC N/A 04/07/2018 Laterality: N/A; Surgeon: Wilner Leigh MD; Location: [facility] ENDOSCOPY COLONOSCOPY DIAGNOSTIC N/A [...] Additions if any: Garry Stephens MD, CAQSM [facility] Emission Specialist - [facility] documented in this encounterLakehealth [facility] Center04-06-2022 History of Present illness Narrative* Dolly Islas [...] exam; Hepatomegaly; Chronic obstructive pulmonary disease; Esophagitis, [place] grade A; Obesity (BMI 30.0-34.9); Idiopathic chronic [...] eyes; Blepharitis of upper eyelids of botheyes; OMZNW-43-Fjproybj on 09-30-2020; Fatigue; Urinary frequency; ASCUS of [...] eyes daily. Given by Dr. Warren at [facility] No current facility-administered medications for this visit. [...] 60-89 ml/min COPD (chronic obstructive pulmonary disease) XMIKO-54-Masdutrc on 09-30-2020 Depression Diabetes mellitus Diffuse non-Hodgkin's [...] Laterality: N/A; Surgeon: Wilner Leigh MD; Location: [facility] ARTHROPLASTY KNEE TOTAL Right 04/2015 [...] affect. Behavior is normal. documented in this [facility]04-06-2022 Miscellaneous Notes* Addendum Note - Dolly Islas - 01/27/2022 1:30 PM EDTAddended by: DOLLY ISLAS on: 01/27/2022 03:16 PM Modules accepted: Orders documented in this [facility]04-06-20[facility] Note* Addendum Note - Dolly Islas - 01/27/2022 1:30 PM EDTAddended by: DOLLY ISLAS on: 01/27/2022 03:16 PM Modules accepted: Orders [facility]04-23-[facility] Emergency department Note* Asad Sagastume, - 02/13/2021 3:43 PM EDT ED PROVIDER NOTE [facility] NAME: Elena Galeano AGE: 61 y.o. : 1960 VISIT DATE: 02/13/2021 CSN: [id number] PCP: No primary care provider on file. [...] file Gets together: Not on file Attends lutheran service: Not on file Active member of [...] Follow-up information has not been specified. Asad Sagastume DO 02/13/21 1552 * Silvano Armas RN - 02/13/2021 3:31 PM EDT C/o left upper back pain x 1 month with pain going to left arm. Unknown injury, has been seeing a Chiropractor but not feeling better. documented in this [id number] Hospital Discharge instructions * Instructions* Asad Sagastume DO - 02/13/2021 Please use Toradol as needed for discomfort. Please take steroids as directed. Please follow-up with orthopedics to obtain an MRI. * Attachments The following attachments cannot be sent through Care Everywhere. * Shoulder Pain (Maldivian) * Shoulder Sprain (Maldivian) documented in this [id number] History of Past illness Narrative* Problem Noted Date Resolved Date Osteoarthrosis, unspecified whether generalized or localized, lower leg 05/19/2015 05/19/2015 Hyperlipidemia 10/23/2013 02/04/2017 Lymphocytosis 12/16/2011 09/01/2012 Splenomegaly 12/16/2011 09/01/2012 documented as of this encounter (statuses as of 09/28/2022) [facility] History of Past illness Narrative* Problem Noted Date Resolved Date Osteoarthrosis, unspecified whether generalized or localized, lower leg 05/19/2015 05/19/2015 Lymphocytosis 12/16/2011 09/01/2012 Splenomegaly 12/16/2011 09/01/2012 documented as of this encounter (statuses as of 11/01/2022) [facility]* Diagnosis Sprain of left shoulder, unspecified shoulder sprain type, initial encounter- Primary documented in this encounter [facility] note* Diagnosis Urge incontinence- Primary documented in this encounter [facility]* Diagnosis Osteoarthritis of left sacroiliac joint- Primary Pain of left sacroiliac joint Disorders of sacrum Lumbar spondylosis Lumbosacral spondylosis without myelopathy [facility]* Diagnosis Controlled type 2 [...] small intestine (without mention of hemorrhage) Esophagitis, [place] grade A Esophageal stenosis Stricture and stenosis [...] cyst, right Unspecified congenital cystic kidney disease IPCET-30-Lxaxjwnv on 09-30-2020 CLL (chronic lymphocytic leukemia) Chronic [...] disc without myelopathy documented in this encounter [facility]* Diagnosis Urinary tract infection without hematuria, site unspecified- Primary Urge incontinence Voiding dysfunction Unspecified disorder of urethra and urinary tract documented in this encounter [facility]* Diagnosis Type 2 diabetes [...] Unspecified asthma Chronic sinusitis, unspecified location Esophagitis, [place] grade A Esophageal stenosis Stricture and stenosis [...] unspecified emphysema type documented in this encounter [facility]* Diagnosis Elective surgery- Primary Unspecified elective surgery for purposes other than remedying health states documented in this encounter [facility]* Diagnosis Dysuria- Primary Detrusor instability of bladder Other functional disorder of bladder Urinary frequency Urethral hypermobility Functional urinary incontinence documented in this encounter [facility]* Diagnosis Mixed stress and urge urinary incontinence- Primary Mixed incontinence urge and stress (male)(female) Midline cystocele Cystocele, midline Urethral hypermobility Pelvic pain Unspecified symptom associated with female genital organs History of atrial fibrillation Personal history of other diseases of circulatory system documented in this encounter [facility]* Diagnosis Mixed stress and [...] midline Urethral hypermobility documented in this encounter [facility]* Diagnosis Type 2 diabetes [...] stenosis Stricture and stenosis of esophagus Esophagitis, [place] grade A Anemia, unspecified type Hepatomegaly Unspecified [...] cyst, right Unspecified congenital cystic kidney disease [id number] on 09-30-2020 Seborrheic keratosis, inflamed-Left thigh-S/P Excision [...] midline Urethral hypermobility [facility] Diagnosis PERCY (obstructive sleep apnea)- Primary Obstructive sleep apnea (adult) (pediatric) [facility] Diagnosis Postoperative examination- Primary Follow-up examination, following unspecified surgery [facility] Diagnosis CLL (chronic lymphocytic leukemia)- Primary Chronic lymphoid leukemia, without mention of having achieved remission Left knee pain, unspecified chronicity- Primary [facility]* Diagnosis Sacroiliitis Sacroiliitis, not elsewhere classified [facility] Diagnosis CLL (chronic lymphocytic leukemia) Chronic lymphoid leukemia, without mention of having achieved remission [facility]* Diagnosis Central retinal artery occlusion, left eye- Primary Central artery occlusion of retina Sudden loss of vision, left Headache, temporal Headache After-cataract with vision obscured of both eyes Follicular lymphoma, unspecified follicular lymphoma type, unspecified body region (HCC) Essential hypertension Unspecified essential hypertension Mixed hyperlipidemia Paroxysmal atrial fibrillation (HCC) Atrial fibrillation [facility] Diagnosis Central retinal artery occlusion, left eye- Primary Central artery occlusion of retina Ischemic stroke (HCC) Essential hypertension Unspecified essential hypertension Hypercholesteremia Pure hypercholesterolemia Paroxysmal atrial fibrillation (HCC) Atrial fibrillation documented in this encounter [facility] note* Diagnosis PAF (paroxysmal atrial fibrillation) (HCC)- Primary Atrial fibrillation Ischemic stroke (HCC) Essential hypertension Unspecified essential hypertension PERCY (obstructive sleep apnea) Obstructive sleep apnea (adult) (pediatric) PVC (premature ventricular contraction) Other premature beats [facility]* Diagnosis Primary osteoarthritis of left knee- Primary Primary localized osteoarthrosis, lower leg [facility]* Diagnosis Type 2 diabetes [...] small intestine (without mention of hemorrhage) Esophagitis, [place] grade A Esophageal stenosis Stricture and stenosis [...] keratosis, inflamed-Left thigh-S/P Excision Inflamed seborrheic keratosis [id number] on 09-30-2020 Anxiety and depression Dysthymic disorder [...] high risk HPV [facility] Diagnosis PERCY (obstructive sleep apnea)- Primary Obstructive sleep apnea (adult) (pediatric) [facility]* Diagnosis Encounter for screening mammogram for malignant neoplasm of breast Other screening mammogram Primary osteoarthritis of left knee Primary localized osteoarthrosis, lower leg [facility] Diagnosis Central retinal artery occlusion, left eye- Primary Central artery occlusion of retina Ischemic stroke (HCC) Essential hypertension Unspecified essential hypertension Hypercholesteremia Pure hypercholesterolemia Paroxysmal atrial fibrillation (HCC) Atrial fibrillation [facility]* Diagnosis Asymptomatic postmenopausal state Primary osteoarthritis of left knee Primary localized osteoarthrosis, lower leg [facility] Diagnosis PERCY (obstructive sleep apnea)- Primary Obstructive sleep apnea (adult) (pediatric) documented in this encounter [facility] note* Diagnosis Preop testing- Primary Preoperative examination, unspecified Abnormal finding of blood chemistry, unspecified Abnormal coagulation profile Stage 3a chronic kidney disease Primary osteoarthritis of left knee Primary localized osteoarthrosis, lower leg [facility] Diagnosis Toe infection- Primary Unspecified local infection of skin and subcutaneous tissue Primary osteoarthritis of left knee Primary localized osteoarthrosis, lower leg [facility] Diagnosis Cellulitis of fourth toe of left foot Cellulitis and abscess of toe, unspecified Primary osteoarthritis of left knee Primary localized osteoarthrosis, lower leg [facility] Diagnosis Cellulitis of fourth toe of left foot- Primary Cellulitis and abscess of toe, unspecified Cellulitis of fourth toe of left foot Cellulitis and abscess of toe, unspecified Primary osteoarthritis of left knee Primary localized osteoarthrosis, lower leg [facility] Diagnosis Cellulitis and abscess of toe of left foot- Primary Primary osteoarthritis of left knee Primary localized osteoarthrosis, lower leg [facility] Diagnosis Toe infection Unspecified local infection of skin and subcutaneous tissue Primary osteoarthritis of left knee Primary localized osteoarthrosis, lower leg [facility] Diagnosis Cellulitis and abscess of toe of left foot- Primary Cellulitis and abscess of toe of left foot [facility]* Diagnosis Spondylosis of lumbar region without myelopathy or radiculopathy Lumbosacral spondylosis without myelopathy [facility]* Diagnosis Cellulitis and abscess of toe of left foot- Primary Cellulitis and abscess of toe of left foot [facility]* Diagnosis Cellulitis and abscess of toe of left foot [facility]* Diagnosis Lumbar spondylosis Lumbosacral spondylosis without myelopathy [facility]* Diagnosis Urinary incontinence, unspecified type- Primary Dysuria [facility]* Diagnosis Cellulitis and abscess of toe of left foot- Primary [facility]* Diagnosis PERCY (obstructive sleep apnea)- Primary Obstructive sleep apnea (adult) (pediatric) [facility]* Diagnosis Cellulitis of other specified site- Primary Abscess of fourth toe of left foot Cellulitis and abscess of toe, unspecified Cellulitis of fourth toe, left Cellulitis and abscess of toe, unspecified [facility]* Diagnosis Abscess of fourth toe of left foot Cellulitis and abscess of toe, unspecified Cellulitis of fourth toe, left Cellulitis and abscess of toe, unspecified [facility]* Diagnosis Cellulitis of other specified site- Primary Elevated glucose Other abnormal glucose Healthcare maintenance Routine general medical examination at a health care facility [facility] Diagnosis Osteoarthritis of right sacroiliac joint- Primary Pain of right sacroiliac joint Disorders of sacrum [facility] Diagnosis Cellulitis of other specified site- Primary Healthcare maintenance Routine general medical examination at a health care facility Elevated glucose Other abnormal glucose Open wound of fourth toe of left foot, sequela [facility] Diagnosis Cellulitis and abscess of toe of left foot- Primary [facility] Diagnosis Cellulitis and abscess of toe of left foot- Primary [facility]* Diagnosis Cellulitis of other specified site- Primary Healthcare maintenance Routine general medical examination at a health care facility Open wound of fourth toe of left foot, sequela Recurrent infections Unspecified infectious and parasitic diseases [facility]* Diagnosis Cellulitis and abscess of toe of left foot- Primary Skin ulcer of fourth toe of left foot with fat layer exposed [facility] Diagnosis Open wound of fourth toe of left foot, sequela- Primary Cellulitis of other specified site Healthcare maintenance Routine general medical examination at a health care facility [facility] Diagnosis Cellulitis of other specified site- Primary [facility]* Diagnosis Cellulitis of other specified site- Primary [facility]* Diagnosis Cellulitis of other specified site- Primary [facility]* Diagnosis Cellulitis of other specified site- Primary [facility]* Diagnosis Cellulitis of other specified site- Primary [facility]* Diagnosis Cellulitis of other specified site- Primary Open wound of fourth toe of left foot, sequela Healthcare maintenance Routine general medical examination at a health care facility Recurrent infections Unspecified infectious and parasitic diseases [facility]* Diagnosis Cellulitis of other specified site- Primary Open wound of fourth toe of left foot, sequela Recurrent infections Unspecified infectious and parasitic diseases [facility] Diagnosis PERCY (obstructive sleep apnea)- Primary Obstructive sleep apnea (adult) (pediatric) [facility] noteNo assessment information availableWMer[facility] Work Phone: Evaluation note* Diagnosis Optic atrophy of left eye- Primary Optic atrophy, unspecified Ischemic stroke (HCC) Cataract, secondary obscuring vision, bilateral Pseudophakia, both eyes Lens replaced by other means Essential hypertension Unspecified essential hypertension Mixed hyperlipidemia PERCY (obstructive sleep apnea) Obstructive sleep apnea (adult) (pediatric) [facility]* Diagnosis Cellulitis and abscess of toe of left foot- Primary [facility]* Diagnosis Recurrent infections- Primary Unspecified infectious and parasitic diseases Open wound of fourth toe of left foot, sequela Healthcare maintenance Routine general medical examination at a health care facility Elevated glucose Other abnormal glucose [facility]* Diagnosis PERCY (obstructive sleep apnea)- Primary Obstructive sleep apnea (adult) (pediatric) [facility]* Diagnosis Cellulitis and abscess of toe of left foot- Primary [facility]* Diagnosis Recurrent infections- Primary Unspecified infectious and parasitic diseases Open wound of fourth toe of left foot, sequela documented [facility]* Diagnosis Skin ulcer of fourth toe of left foot with fat layer exposed- Primary [facility]* Diagnosis Osteoarthritis of right sacroiliac joint- Primary Pain of right sacroiliac joint Disorders of sacrum Osteoarthritis of right sacroiliac joint Pain of right sacroiliac joint Disorders of sacrum [facility]* Diagnosis Osteoarthritis of right sacroiliac joint Pain of right sacroiliac joint Disorders of sacrum [facility]* Diagnosis Recurrent infections- Primary Unspecified infectious and parasitic diseases Open wound of fourth toe of left foot, sequela Healthcare maintenance Routine general medical examination at a health care facility documented [facility]* Diagnosis LUQ abdominal pain Abdominal pain, left upper quadrant [facility] Diagnosis LUQ abdominal pain- Primary Abdominal pain, left upper quadrant CLL (chronic lymphocytic leukemia) Chronic lymphoid leukemia, without mention of having achieved remission LUQ abdominal pain Abdominal pain, left upper quadrant [facility] Chronic kidney disease, stage II (mild)- Primary Chronic kidney disease, Stage II (mild) [facility]* Diagnosis Open wound of fourth toe of left foot, sequela- Primary Healthcare maintenance Routine general medical examination at a health care facility [facility]* Diagnosis Preop testing- Primary Unspecified pre-operative examination Atrial fibrillation, unspecified type (HCC) [facility] Diagnosis Preop testing- Primary Unspecified pre-operative examination [facility]* Diagnosis Atrial fibrillation, unspecified type (HCC)- Primary CLL (chronic lymphocytic leukemia) (HCC) Chronic lymphoid leukemia, without mention of having achieved remission NHL (nodular histiocytic lymphoma) (HCC) Reticulosarcoma, unspecified site, extranodal and solid organ sites Essential hypertension Unspecified essential hypertension documented in this encounter [facility] note* Diagnosis Atrial fibrillation, unspecified type (HCC)- Primary [facility]* Diagnosis Atrial fibrillation, unspecified type (HCC)- Primary documented in this encounter [facility] note* Diagnosis Atrial fibrillation, unspecified type (HCC)- Primary [facility]* Diagnosis Osteoarthritis of right sacroiliac joint- Primary Pain of right sacroiliac joint Disorders of sacrum Lumbar spondylosis Lumbosacral spondylosis without myelopathy Spondylolisthesis of lumbar region Acquired spondylolisthesis Sacroiliitis Sacroiliitis, not elsewhere classified [facility]* Diagnosis Vertebrogenic low back pain [facility]* Diagnosis Encounter for screening mammogram for malignant neoplasm of breast Other screening mammogram [facility]* Diagnosis Sacroiliitis, not elsewhere classified documented in this encounter [facility] note* Diagnosis Sacroiliitis, not elsewhere classified documented in this encounter [facility] note* Diagnosis Abnormal thyroid stimulating hormone (TSH) level- Primary Dysphagia, unspecified type Hyperthyroidism Thyrotoxicosis without mention of goiter or other cause, without mention of thyrotoxic crisis or storm [facility]* Diagnosis Abnormal thyroid stimulating hormone (TSH) level Dysphagia, unspecified type Hyperthyroidism Thyrotoxicosis without mention of goiter or other cause, without mention of thyrotoxic crisis or storm [facility] Diagnosis Abnormal thyroid stimulating hormone (TSH) level- Primary Dysphagia, unspecified type Sacroiliitis Sacroiliitis, not elsewhere classified [facility] Diagnosis Type 2 diabetes mellitus with [...] liver Other chronic nonalcoholic liver disease Esophagitis, [place] grade A Esophageal stenosis Stricture and stenosis [...] Nondependent alcohol abuse, in remission History of [id number] 09-30-2020 History of cataract extraction, unspecified laterality History of anemia Personal history of diseases of blood and blood-forming organs Family history of Alzheimer's disease Family history of other condition Sacroiliitis Sacroiliitis, not elsewhere classified [facility]* Diagnosis Sacroiliitis- Primary Sacroiliitis, not elsewhere classified [facility]* Diagnosis Spondylosis of lumbar region without myelopathy or radiculopathy Lumbosacral spondylosis without myelopathy [facility]* Diagnosis Atrial fibrillation, unspecified type (HCC)- Primary documented in this encounter [facility] note* Diagnosis Spondylosis without myelopathy or radiculopathy, lumbar region [facility]* Diagnosis After cataract not obscuring vision, bilateral- Primary Pseudophakia of both eyes Lens replaced by other means 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, unspecified Essential hypertension Unspecified essential hypertension Hypercholesteremia Pure hypercholesterolemia [facility]* Diagnosis Left knee pain, unspecified chronicity- Primary [facility]* Diagnosis After cataract not obscuring vision, bilateral- Primary Pseudophakia of both eyes Lens replaced by other means 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, unspecified Essential hypertension Unspecified essential hypertension Hypercholesteremia Pure hypercholesterolemia documented in this encounter [facility] note* Diagnosis Type 2 diabetes mellitus [...] liver Other chronic nonalcoholic liver disease Esophagitis, [place] grade A Esophageal stenosis Stricture and stenosis [...] Nondependent alcohol abuse, in remission History of [id number] 09-30-2020 History of cataract extraction, unspecified laterality Former smoker-Quit 2011 Personal history of tobacco use, presenting hazards to health Family history of Alzheimer's disease-Father Family history of other condition Family history of hypertension in mother Preop testing- Primary Preoperative examination, unspecified Alteration in blood glucose level Pain in other specified joint Osteoarthritis of left knee, unspecified osteoarthritis type [facility]* Diagnosis CLL (chronic lymphocytic leukemia)- Primary Chronic lymphoid leukemia, without mention of having achieved remission Osteoarthritis of left knee, unspecified osteoarthritis type [facility] Diagnosis Dysphagia, unspecified type Iron deficiency anemia, unspecified iron deficiency anemia type Osteoarthritis of left knee, unspecified osteoarthritis type documented [facility]* Diagnosis Chronic kidney disease, stage II (mild)- Primary Chronic kidney disease, Stage II (mild) Osteoarthritis of left knee, unspecified osteoarthritis type documented [facility]* Diagnosis Type 2 diabetes [...] liver Other chronic nonalcoholic liver disease Esophagitis, [place] grade A Esophageal stenosis Stricture and stenosis [...] of cataract extraction, unspecified laterality History of [id number] 09-30-2020 History of ETOH abuse Nondependent alcohol abuse, in remission Family history of hypertension in mother Family history of Alzheimer's disease-Father Family history of other condition S/P total knee arthroplasty, right S/P unilateral salpingo-oophorectomy Acquired absence of organ, genital organs Osteoarthritis of left knee, unspecified osteoarthritis type [facility] Diagnosis Osteoarthritis of left knee- Primary Osteoarthrosis, unspecified whether generalized or localized, lower leg Osteoarthritis of left knee, unspecified osteoarthritis type Acute postoperative pain of left knee [facility]* Diagnosis Dysphagia, unspecified type Iron deficiency anemia, unspecified iron deficiency anemia type documented [facility]* Diagnosis History of total knee arthroplasty, left- Primary Pain of left calf Calf swelling Swelling of limb Acute postoperative pain of left knee [facility]* Diagnosis Dysphagia, unspecified type- Primary Iron deficiency anemia, unspecified iron deficiency anemia type Dysphagia, unspecified type Iron deficiency anemia, unspecified iron deficiency anemia type Dysphagia, unspecified type Iron deficiency anemia, unspecified iron deficiency anemia type [facility]* Diagnosis Dysphagia, unspecified type- Primary Esophageal dysmotility Dyskinesia of esophagus [facility]* Diagnosis S/P total knee arthroplasty, left- Primary [facility] Diagnosis Type 2 diabetes [...] liver Other chronic nonalcoholic liver disease Esophagitis, [place] grade A Esophageal stenosis Stricture and stenosis [...] Nondependent alcohol abuse, in remission History of [id number] 09-30-2020 History of cataract extraction, unspecified laterality Family history of hypertension in mother Family history of Alzheimer's disease-Father Family history of other condition Encounter for screening mammogram for breast cancer Asymptomatic postmenopausal state [facility] Diagnosis Bilateral carotid artery stenosis-30% Right, 60% Left Occlusion and stenosis of multiple and bilateral precerebral arteries without mention of cerebral infarction [facility]* Diagnosis Esophageal dysmotility- Primary Dyskinesia of esophagus [facility]* Diagnosis Esophageal spasm Dyskinesia of esophagus [facility]* Diagnosis Wellness examination- Primary [facility] Diagnosis Encounter for screening mammogram for breast cancer [facility] Diagnosis Asymptomatic postmenopausal state [facility]* Diagnosis PAF (paroxysmal atrial fibrillation) (HCC)- Primary Atrial fibrillation [facility] Depression, unspecified depression type- Primary Alcohol use disorder Chronic prescription benzodiazepine use Benzodiazepine withdrawal without complication (Multi) Nonspecific chest pain documented in this encounter [facility] Work Phone: Evaluation note* Diagnosis Type 2 [...] liver Other chronic nonalcoholic liver disease Esophagitis, [place] grade A Esophageal stenosis Stricture and stenosis [...] of cataract extraction, unspecified laterality History of [id number] 09-30-2020 History of ETOH abuse Nondependent alcohol abuse, in remission S/P total knee arthroplasty, right S/P unilateral salpingo-oophorectomy Acquired absence of organ, genital organs [facility] Diagnosis Spondylosis of lumbar region without myelopathy or radiculopathy Lumbosacral spondylosis without myelopathy [facility] Diagnosis Open wound of fourth toe of left foot, sequela- Primary Recurrent infections Unspecified infectious and parasitic diseases Open wound of fourth toe of left foot, sequela [facility] Diagnosis Open wound of fourth toe of left foot, sequela [facility]* Diagnosis After-cataract obscuring vision, right- Primary Pseudophakia of both eyes Lens replaced by other means Central retinal artery occlusion, left eye Central artery occlusion of retina 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, unspecified [facility] Diagnosis Toe pain, left- Primary Pain in limb [facility] Diagnosis Toe pain, left Pain in limb [facility]* Diagnosis Spinal stenosis, lumbar region, with neurogenic claudication- Primary Cluneal neuropathy Other low back pain Encounter for medication monitoring Encounter for therapeutic drug monitoring [facility]* Diagnosis Status post eye surgery- Primary Other states following surgery of eye and adnexa Pseudophakia of both eyes Lens replaced by other means Central retinal artery occlusion, left eye Central artery occlusion of retina 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, unspecified [facility] Diagnosis Skin ulcer of fourth toe of left foot, limited to breakdown of skin- Primary Plantar fasciitis Plantar fascial fibromatosis Pain of left foot Pain in limb [facility] this [facility]* Diagnosis Spinal stenosis, lumbar region, with neurogenic claudication Cluneal neuropathy Other low back pain [facility] Diagnosis Spondylosis without myelopathy or radiculopathy, lumbar region documented [facility] this [facility]* Diagnosis Skin ulcer of fourth toe of left foot, limited to breakdown of skin documented [facility] this [facility]* Diagnosis Skin ulcer of fourth toe of left foot, limited to breakdown of skin- Primary Plantar fasciitis Plantar fascial fibromatosis Pain of left foot Pain in limb [facility]* Diagnosis Strain of thoracic paraspinal muscles excluding T1 and T2 levels, initial encounter- Primary Spinal stenosis, lumbar region, with neurogenic claudication Cluneal neuropathy Other low back pain Myofascial pain Mylagia and myositis, unspecified Right-sided thoracic back pain, unspecified chronicity documented [facility] this encounter [facility]* Diagnosis Cluneal neuropathy- Primary Myofascial pain Mylagia and myositis, unspecified Lumbar spondylosis Lumbosacral spondylosis without myelopathy Spinal stenosis, lumbar region, with neurogenic claudication documented in this encounter [facility] NarrativePatient confirmed name and date of . Reviewed TrA contraction with patient, good contraction noted with palpation with no noted compensation. Fair trunk stability with UE/LE exercises, encouraged patient to increase tulio of movement but patient continued with slow to moderate tulio to keep trunk stable. Abolished pain and LE sx with unloading. [facility] Work Phone: History of Present illness NarrativePatient [...] dyn activity to decrease back pain. [facility] Work Phone: History of Present illness NarrativePatient confirmed name and date of . Patient demonstrated fair trunk control with UE/LE paddles, able to increase tulio with while maintaining control. Added UE kick board today, patient required cues to keep trunk flexion. Cues to maintain good posture with unloading.[facility] Work Phone: history of Present illness NarrativePatient tolerated treatment without increased pain. Patient has Fair Tra and keeps intact with ther-ex. Patient needing one UE support with LE ther-ex and no support with 100% unloading. Patient has good form/understanding with ther-ex and keeps body in good alignment. Continue with core stability while performing dyn activity to decrease back pain.[facility] Work Phone: history of Present [facility] Narrativepatient tolerated treatment without pain today. Patient has Fair Tra and keeps intact with ther-ex.Patient needing one UE support with LE ther-ex and no support with 100% unloading. patient has goodform/understanding with ther-ex and keeps body in good alignment. Continue with core stability while performing dyn activity to decrease back pain.[facility] Work Phone: history of Present illness Narrative* [...] to complete today's treatment with some difficulty. [facility] Work Phone: Hisqjtn of Present illness Narrative* The pt has [...] time. * Response to treatment: improved strength. [facility] Work Phone: history of Present [facility] NarrativePatient confirmed name and date of . Patient able to progress reps without difficulty. Fair trunk control noted with UE/LE exercises, moderate cues to keep TrA engaged and to keep trunk from flexion. Added squats today with cues for good form and TrA contraction. Pain relief with unloading. [facility] Work Phone: History of Present illness NarrativePatient confirmed name and date of . Patient able to progress reps of respective exercises with good endurance while maintaining fair trunk control. Added Step taps and Step ups today with patient demonstrating poor trunk control at first, improvement noted as reps progresses. No increase in SI joint pain with aquatic exercises. [facility] Work Phone: History of Present illness NarrativePatient confirmed name and date of . Patient shows improved TrA contraction with UE/LE exercises. Hip abduction performed in small range of motion with quick motion to improve SI joint stabilityand reduce joint irritation. Some SI irritation noted with Step Ups, cues to keep TrA intact. [facility] Work Phone: Hospital Discharge instructions* Attachments The following attachments cannot be sent through Care Everywhere. * [facility] AMB SMOKING CESSATION LINKS [facility] Attachments The following attachments cannot be sent through Care Everywhere. * Abscess: Skin (Maldivian) * Cellulitis (Maldivian) [facility] Consultation (Routine) - New Request Specialty Diagnoses / Procedures Referred By Alonzo houston Referred To Contact Sleep Medicine Diagnoses PERCY on CPAP Fernie Paredes DO [address] [facility] [address] [place] [address] Jawsinder Mcginnis MD [address] [place] [address] Referral ID Status Reason Start Date Expiration Date V isits Requested Visits Authorized [id number] New Request 03/23/2022 04/17/2023 1 1 [facility] for referral (narrative)* Diagnostic Procedure Only (Routine) - Authorized Specialty Diagnoses / Procedures Referred By Alonzo houston Referred To Contact [facility] Diagnoses PERCY (obstructive sleep apnea) Procedures HOME SLEEP APNEA TEST (HSAT) SLEEP STD AIRFLOW HRT RATE&O2 SAT EFFORT UNATT Eddi Randhawa MD [address] [place] [address] [facility] [place] [address] [place] [address] Referral ID Status Reason Start Date Expiration Date Visits Requested Visits Authorized [id number] Authorized Auto-Generat ed Referral 09/28/2022 09/28/2023 1 1 [facility] for referral (narrative)* Diagnostic Procedure Only (Routine) - Pending Review Specialty Diagnoses / Procedures Referred By Contact Referred To Contact MOLECULAR & FUNCTIONAL IMAGING Diagnoses PAF (paroxysmal atrial fibrillation) (HCC) Procedures NM CARDIAC PERF STRESS/PHARM MYOCARDIAL SPECT MULTIPLE STUDIES Laya Barillas, ASSEMBLER ARRANGER.HYDRAULIC PRESS SERVICER [address] [address] Molecular & Functional Imaging [address] [place] [address] Referral ID Status Reason Start Date Expiration Date Visits Requested Visits Authorized [id number] Pending Review Auto-Generat ed Referral 11/17/2022 12/17/2023 1 1 [facility] for referral (narrative)* Consultation (Urgent) - New Request Specialty Diagnoses / Procedures Referred By Contac t Referred To Contact Podiatry Diagnoses Toe infection Shae Whittington, 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 [address] [place] [address] Dawn Uriarte, DPArtem [address] [place] [address] Referral ID Status Reason Start Date Expiration Date V isits Requested Visits Authorized [id number] New Request 04/21/2023 05/15/2024 1 1 [facility] for referral (narrative)* Consultation (Routine) - New Request Specialty Diagnoses / Procedures Referred By Contac t Referred To Contact Chemotherapy Diagnoses Cellulitis of other specified site Open wound of fourth toe of left foot, sequela Recurrent infections Monse Shipley MD [address] [place] [address] [place] [address] Referral ID Status Reason Start Date Expiration Date V isits Requested Visits Authorized [id number] New Request 07/22/2023 08/15/2024 1 1 * (Routine) - New Request Specialty Diagnoses / Procedures Referred By Contac t Referred To Contact Diagnoses Cellulitis of other specified site Open wound of fourth toe of left foot, sequela Procedures PICC LINE PLACEMENT/REMOVAL Monse Shipley MD [address] [place], [place] [id number] Referral ID Status Reason Start Date Expiration Date V isits Requested Visits Authorized [id number] New Request 07/22/2023 08/15/2024 1 1 [facility] for referral (narrative)* Consultation (Routine) - New Request Specialty Diagnoses / Procedures Referred By Contac t Referred To Contact Neurologic Surgery Diagnoses Osteoarthritis of right sacroiliac joint Pain of right sacroiliac joint Sacroiliitis Garry Stephens MD [address] [place] [address] Isreal Sigala MD [address] [place] [address] Referral ID Status Reason Start Date Expiration Date V isits Requested Visits Authorized [id number] New Request 01/10/2024 02/03/2025 1 1 * Radiology (Routine) - New Request Specialty Diagnoses / Procedures Referred By Contac t Referred To Contact Diagnoses Osteoarthritis of right sacroiliac joint Pain of right sacroiliac joint Procedures US IMAGING FOR ORTHO Garry Stephens MD [address] [place] [address] [place] [address] Referral ID Status Reason Start Date Expiration Date V isits Requested Visits Authorized [id number] New Request 01/10/2024 02/03/2025 1 1 [facility] for referral (narrative)* (Routine) Specialty Diagnoses / Procedures Referred By Contac t Referred To Contact [facility] RE[facility] LOC [address] [place] [id number] Referral ID Status Reason Start Date Expiration Date Visits Re quested Visits Authorized [facility] for referral (narrative)* (Routine) Specialty Diagnoses / Procedures Referred By Contac t Referred To Contact [facility] LOC [address] [place] [address] Referral ID Status Reason Start Date Expiration Date Visits Re quested Visits Authorized * Adjunctive Therapy (Routine) - New Request Specialty Diagnoses / Procedures Referred By Contac t Referred To Contact Diagnoses Acute postoperative pain of left knee Sonido Castaneda APRN-CNP [address] [place] [address] Referral ID Status Reason Start Date Expiration Date V isits Requested Visits Authorized [id number] New Request 11/12/2024 12/07/2025 1 1 Scheduling Instructions . [facility] for visit Narrative* Auth/Cert Specialty Diagnoses / Procedures Referred By Contac t Referred To Contact Diagnoses Sacroiliitis Sacroiliitis [M46.1] Procedures TN ARTHRODESIS SACROILIAC JOINT PERCUTANEOUS CHG FLUOR NEEDLE/CATH SPINE/PARASPINAL DX/THER ADDON ARTHRODESIS SACROILIAC JOINT MINIMALLY INVASIVE GUIDANCE FLUOROSCOPIC NEEDLE OR CATHETER PLACEMENT FOR SPINE INJECTION ADD-ON PX Isreal Sigala MD [address] [place] [address] Referral ID Status Reason Start Date Expiration Date Visits Re quested Visits Authorized [id number] 06/10/2022 1 1 [facility] Narr[facility]* Initial Evaluation. * Ref[facility] by[facility] Work Phone: reason for visit Narrative* Auth/Cert Specialty Diagnoses / Procedures Referred By [facility] Referred To Contact Diagnoses Other spondylosis with radiculopathy, lumbar region Other spondylosis with radiculopathy, lumbar region [M47.26] Procedures TN INJECTION AA&/STRD OTHER PERIPHERAL NERVE/BRANCH CHG FLUOR NEEDLE/CATH SPINE/PARASPINAL DX/THER ADDON INJECTION NERVE OTHER PERIPHERAL GUIDANCE FLUOROSCOPIC NEEDLE OR CATHETER PLACEMENT FOR SPINE INJECTION ADD-ON PX Isreal Sigala MD [address] [place] [address] Referral ID Status Reason Start Date Expiration Date Visits Re quested Visits Authorized [id number] 12/08/2022 1 1 [facility] Narrative* Initial Evaluation . sacroilitis. * Referred by: [facility] [facility] Work Phone: reason for visit Narrative* Auth/Cert Specialty Diagnoses / Procedures Referred By [facility] Referred To Contact Diagnoses Osteoarthritis of left knee, unspecified osteoarthritis type Osteoarthritis of left knee, unspecified osteoarthritis type [M17.12] Procedures TN ARTHRP KNE CONDYLE&PLATU MEDIAL&LAT COMPARTMENTS ARTHROPLASTY KNEE TOTAL Gonsalo Blackwood MD [address] [place] [address] [employer] Referral ID Status Reason Start Date Expiration Date Visits Re quested Visits Authorized [id number] 1 1 [facility] Narrative* Diagnostic X-Ray (Routine) - New Request Specialty Diagnoses / Procedures Referred By [facility] Referred To Contact Diagnoses History of total knee arthroplasty, left Procedures XR KNEE LEFT 3 VIEWS Shi Son [address] [place] [address] Phone: tel: fax: Referral ID Status Reason Start Date Expiration Date V isits Requested Visits Authorized [id number] New Request 12/03/2024 12/28/2025 1 1 [facility]* Radiology (Emergency) - Closed Specialty Diagnoses / Procedures Referred By Contac t Referred To Contact Diagnoses History of total knee arthroplasty, left Pain of left calf Calf swelling Procedures US DUPLEX EXTREMITY DVT LEFT Shi Son [address] [place] [address] Phone: tel: fax: Referral ID Status Reason Start Date Expiration Date Visits Re quested Visits Authorized [id number] Closed 12/05/2024 12/30/2025 1 1 [employer] [facility]* Radiology (Routine) - Closed Specialty Diagnoses / Procedures Referred By Contac t Referred To Contact Diagnoses Bilateral carotid artery stenosis Procedures VASC DUPLEX CAROTID BILATERAL TN DUPLEX SCAN EXTRACRANIAL ART COMPL BI STUDY Fernie Paredes DO [address] [address] Phone: tel: fax: Referral ID Status Reason Start Date Expiration Date Visits Re quested Visits Authorized [id number] Closed 12/31/2024 2026 1 1 [employer] [facility] N[facility]* Radiology (Routine) - Closed Specialty Diagnoses / Procedures Referred By Contac t Referred To Contact Diagnoses Esophageal dysmotility Procedures MANOMETRY ESOPHAGEAL TN ESOPHAGEAL MOTILITY STUDY W/INTERP&RPT Delilah Ellis Jr., DO [address] [place] [address] Phone: tel: fax: Referral ID Status Reason Start Date Expiration Date Visits Re quested Visits Authorized [id number] Closed 01/01/2025 01/26/2026 1 1 [facility]* Radiology (Routine) - Closed Specialty Diagnoses / Procedures Referred By Contac t Referred To Contact Diagnoses Encounter for screening mammogram for breast cancer Procedures MAMMO SCREENING WITH ALEXANDER BILATERAL Fernie Paredes DO [address] [facility] [address] [place] [address] Phone: tel: fax: Referral ID Status Reason Start Date Expiration Date Visits Re quested Visits Authorized [id number] Closed 12/31/2024 2026 1 1 [employer] [facility] N[facility]* Radiology (Routine) - Closed Specialty Diagnoses / Procedures Referred By Contac t Referred To Contact Diagnoses Asymptomatic postmenopausal state Procedures BONE DENSITY AXIAL (HIP, PELVIS, SPINE) Fernie Paredes, DO [address] [facility] [address] [place] [address] Phone: tel: fax: Referral ID Status Reason Start Date Expiration Date Visits Re quested Visits Authorized [id number] Closed 12/31/2024 2026 1 1 [facility] for [facility] Narrative* MRI/CAT Scan (Routine) - Closed Specialty Diagnoses / Procedures Referred By Contac t Referred To Contact Diagnoses Spinal stenosis, lumbar region, with neurogenic claudication Cluneal neuropathy Other low back pain Procedures MRI SPINE LUMBAR WITHOUT CONTRAST CHG MRI SPINAL CANAL LUMBAR W/O CONTRAST MATERIAL Katina William, 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 Phone: tel: fax: Referral ID Status Reason Start Date Expiration Date Visits Re quested Visits Authorized [id number] Closed 05/20/2025 06/14/2026 1 1 [facility] for [facility] Narrative* MRI/CAT Scan (Routine) - Closed Specialty Diagnoses / Procedures Referred By Contac t Referred To Contact Diagnoses Spondylosis without myelopathy or radiculopathy, lumbar region Procedures CT SPINE LUMBAR WITHOUT CONTRAST CHG CT LUMBAR SPINE W/O CONTRAST MATERIAL Isreal Sigala MD [address] [place] [address] Phone: tel: fax: [employer] [address] [place] [address] Referral ID Status Reason Start Date Expiration Date Visits Re quested Visits Authorized [id number] Closed 05/07/2025 06/01/2026 1 1 [facility]* MRI/CAT Scan (Routine) - [...] Expiration Date Visits Re quested Visits Authorized [id number] Closed 05/30/2025 06/24/2026 1 1 [facility] Family History No Family History Records FoundUnknown [...] Type:Provider Instructions for Treatment How to access [facility] online - Detail Indication:Hyperlipidemia Start:29-Apr-2014 Instruction Type:Patient [...] FoundDocuments on File Type Date Recorded Patient Core Mounter Expl anation Advance Directives and Livin g [...] No February 04, 2016 12:50pm Power of Speed Runner No February 03 12:50pm Advance Directive Response Recorded Date/ Time Advance Directives No February 03 11:50am Living Will No February 04, 2016 11:50am Power of Speed Runner No February 03 11:50am Latest Code Status [...] Referred To Contact Fernie Paredes, [address] [place] [address] Referral ID Status Reason Start Date Expiration Date V isits Requested Visits Authorized [id number] Pending Review 1 1 Specialty Diagnoses / Procedures Referred By Contac t Referred To Contact Diagnoses Sacroiliitis Procedures XR SPINE LUMBAR W BENDING Isreal Siglaa MD [address] [place] [address] [facility] Referral ID Status Reason Start Date Expiration Date V isits Requested Visits Authorized [id number] New Request 10/12/2022 11/06/2023 1 1 Referral ID Status Reason Start Date Expiration Date V isits Requested Visits Authorized [id number] Pending Review 1 1 Specialty Diagnoses / Procedures Referred By Contac t Referred To Contact Neurology Diagnoses Central retinal artery occlusion of left eye Cerebrovascular accident (CVA), unspecified mechanism Fernie Paredes DO [address] [place] [address] [address] [place] [address] Burak Oliva MD [address] [place] [address] Referral ID Status Reason Start Date Expiration Date V isits Requested Visits Authorized [id number] New Request 11/22/2022 12/17/2023 1 1 Specialty Diagnoses / Procedures Referred By Contac t Referred To Contact Dentistry Diagnoses PERCY (obstructive sleep apnea) Procedures CONSULT TO DENTISTRY OFFICE/OUTPATIENT [facility] MDM 60-74 MINUTES Eddi Randhawa MD [address] [place] [address] Referral ID Status Reason Start Date Expiration Date Visits Requested Visits Authorized [id number] Pending Review PCP Requested Referral 11/24/2022 11/24/2023 1 1 Specialty Diagnoses / Procedures Referred By Contac t Referred To Contact Mammography Diagnoses Encounter for screening mammogram for malignant neoplasm of breast Procedures MAMMO SCREENING WITH ALEXANDER BILATERAL Shannna Kate, 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 [id number] [place] [address] [facility] [address] [place] [address] Referral ID Status Reason Start Date Expiration Date Visits Re quested Visits Authorized [id number] Closed 02/02/2022 02/27/2023 1 1 Specialty Diagnoses / Procedures Referred By Contac t Referred To Contact Bone Densitometry Diagnoses Asymptomatic postmenopausal state Procedures BONE DENSITY AXIAL (HIP, PELVIS, SPINE) Fernie Paredes DO [address] [place] [address] [facility] [address] [place] [address] Referral ID Status Reason Start Date Expiration Date Visits Re quested Visits Authorized [id number] Closed 02/14/2023 03/10/2024 1 1 Specialty Diagnoses / Procedures Referred By Contac t Referred To Contact Diagnoses Preop testing Procedures ECG Gonsalo Blackwood MD [address] [place] [address] Referral ID Status Reason Start Date Expiration Date V isits Requested Visits Authorized [id number] New Request 04/04/2023 04/28/2024 1 1 Specialty Diagnoses / Procedures Referred By Contac t Referred To Contact Diagnoses Stage 3a chronic kidney disease Procedures US ABDOMEN RUQ/LIVER/GB Fernando Davison MD [address] [place] [address] Referral ID Status Reason Start Date Expiration Date V isits Requested Visits Authorized [id number] New Request 04/27/2023 05/21/2024 1 1 Specialty Diagnoses / Procedures Referred By Contac t Referred To Contact Diagnoses Cellulitis and abscess of toe of left foot Procedures MRI FOOT LEFT WITHOUT CONTRAST TN MRI, LOWER EXTREM Dawn Uriarte, DPM [address] [place] [address] Referral ID Status Reason Start Date Expiration Date V isits Requested Visits Authorized [id number] Auth Not Needed 05/05/2023 05/29/2024 1 1 Referral ID Status Reason Start Date Expiration Date Visits Re quested Visits Authorized [id number] Closed 05/10/2023 06/03/2024 1 1 Specialty Diagnoses / Procedures Referred By Contac t Referred To Contact Diagnoses Cellulitis and abscess of toe of left foot Procedures XR FOOT LEFT 3 VIEWS Dawn Uriarte, DPM [address] [place] [address] Referral ID Status Reason Start Date Expiration Date V isits Requested Visits Authorized [id number] New Request 06/14/2023 07/08/2024 1 1 Specialty Diagnoses / Procedures Referred By Contac t Referred To Contact Magnetic Resonance Imaging Diagnoses Lumbar spondylosis Procedures MRI SPINE LUMBAR WITHOUT CONTRAST TN MRI, LUMBAR SPINE Isreal Sigala MD [address] [address] [facility] Mri [address] [place] [address] Referral ID Status Reason Start Date Expiration Date Visits Re quested Visits Authorized [id number] Closed 06/07/2023 07/01/2024 1 1 Specialty Diagnoses / Procedures Referred By Contac t Referred To Contact Diagnoses Urinary incontinence, unspecified type Dysuria Procedures URODYNAMICS Dariusz Rangel MD [address] [place] [address] Referral ID Status Reason Start Date Expiration Date Visits Re quested Visits Authorized [id number] Closed 06/01/2022 06/26/2023 1 1 Specialty Diagnoses / Procedures Referred By Contac t Referred To Contact Magnetic Resonance Imaging Diagnoses Cellulitis and abscess of toe of left foot Procedures MRI FOOT LEFT WITHOUT CONTRAST TN MRI, LOWER EXTREM Dawn Uriarte DPM [address] [place] [address] [facility] [address] [place] [address] Referral ID Status Reason Start Date Expiration Date V isits Requested Visits Authorized [id number] Auth Not Needed 06/28/2023 07/22/2024 1 1 Specialty Diagnoses / Procedures Referred By Contac t Referred To Contact Infectious Diseases Diagnoses Cellulitis and abscess of toe of left foot Dawn Uriarte DPM [address] [place] [address] Monse Shipley MD [address] [place] [address] Referral ID Status Reason Start Date Expiration Date V isits Requested Visits Authorized [id number] New Request 06/28/2023 07/22/2024 1 1 Referral ID Status Reason Start Date Expiration Date V isits Requested Visits Authorized [id number] New Request 07/21/2023 08/14/2024 1 1 Specialty Diagnoses / Procedures Referred By Contac t Referred To Contact Magnetic Resonance Imaging Diagnoses Cellulitis and abscess of toe of left foot Skin ulcer of fourth toe of left foot with fat layer exposed Procedures MRI FOOT LEFT WITHOUT CONTRAST TN MRI, LOWER EXTREM Dawn Uriarte, DPM [address] [place] [address] [facility] [address] [place] [address] Referral ID Status Reason Start Date Expiration Date V isits Requested Visits Authorized [id number] Auth Not Needed 07/28/2023 08/21/2024 1 1 Specialty Diagnoses / Procedures Referred By Contac t Referred To Contact Diagnoses Osteoarthritis of right sacroiliac joint Pain of right sacroiliac joint Procedures US IMAGING FOR ORTHO Garry Stephens MD [address] [place] [address] Referral ID Status Reason Start Date Expiration Date V isits Requested Visits Authorized [id number] New Request 09/26/2023 10/20/2024 1 1 Specialty Diagnoses / Procedures Referred By Contac t Referred To Contact Diagnoses LUQ abdominal pain Procedures CT ABDOMEN/PELVIS WITH CONTRAST CHG CT SCAN,ABDOMENT AND PELVIS,W CONTRAST Naty Bhakta MD [address] [facility] [address] [place] [address] Referral ID Status Reason Start Date Expiration Date V isits Requested Visits Authorized [id number] New Request 09/21/2023 10/15/2024 1 1 Specialty Diagnoses / Procedures Referred By Contac t Referred To Contact Cardiology Diagnoses Atrial fibrillation, unspecified type (HCC) Procedures ECG 12 lead Kandice Christie MD [address] [place] [address] Referral ID Status Reason Start Date Expiration Date V isits Requested Visits Authorized [id number] Authorized 11/08/2023 11/07/2024 1 1 Specialty Diagnoses / Procedures Referred By Contac t Referred To Contact Radiology Diagnoses Atrial fibrillation, unspecified type (HCC) Procedures CT MARY LOU (Left Atrial Appendage) CCTA With and Without Contrast Kandice Christie MD [address] [place] [address] Referral ID Status Reason Start Date Expiration Date V isits Requested Visits Authorized [id number] Authorized 11/08/2023 11/07/2024 1 1 Specialty Diagnoses / Procedures Referred By Contac t Referred To Contact Radiology Diagnoses Atrial fibrillation, unspecified type (HCC) Procedures CT Pulmonary Vein With Reconstructions 3D Kandice Christie MD [address] [place] [address] Referral ID Status Reason Start Date Expiration Date V isits Requested Visits Authorized [id number] Authorized 05/24/2024 05/24/2025 1 1 Specialty Diagnoses / Procedures Referred By Contac t Referred To Contact Diagnoses Encounter for screening mammogram for malignant neoplasm of breast Procedures MAMMO SCREENING WITH ALEXANDER BILATERAL 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, 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 [address] [address] Referral ID Status Reason Start Date Expiration Date Visits Re quested Visits Authorized [id number] Closed 02/03/2023 02/28/2024 1 1 Specialty Diagnoses / Procedures Referred By Contac t Referred To Contact Diagnoses Sacroiliitis, not elsewhere classified Procedures CT PELVIS WITHOUT CONTRAST TN CT SCAN,PELVIS,W/O CONTRAST Isreal Sigala MD [address] [facility] [address] [place] [address] Referral ID Status Reason Start Date Expiration Date Visits Re quested Visits Authorized [id number] Closed 02/15/2024 03/11/2025 1 1 Specialty Diagnoses / Procedures Referred By Contac t Referred To Contact Diagnoses Abnormal thyroid stimulating hormone (TSH) level Dysphagia, unspecified type Hyperthyroidism Procedures US THYROID Aviva Mera, HYDRAULIC PRESS SERVICER [address] [place] [address] Referral ID Status Reason Start Date Expiration Date V isits Requested Visits Authorized [id number] New Request 03/12/2024 04/06/2025 1 1 Referral ID Status Reason Start Date Expiration Date Visits Re quested Visits Authorized [id number] Closed 03/12/2024 04/06/2025 1 1 Specialty Diagnoses / Procedures Referred By Contac t Referred To Contact Diagnoses Left knee pain, unspecified chronicity Procedures XR KNEE LEFT 4+ VIEWS Gonsalo Blackwood MD [address] [place] [address] Referral ID Status Reason Start Date Expiration Date V isits Requested Visits Authorized [id number] New Request 08/20/2024 09/14/2025 1 1 Specialty Diagnoses / Procedures Referred By Contac t Referred To Contact Diagnoses Dysphagia, unspecified type Iron deficiency anemia, unspecified iron deficiency anemia type Procedures DIAGNOSTIC UPPER ENDOSCOPY TN ESOPHAGOGASTRODUODENOSCOPY TRANSORAL DIAGNOSTIC Delilah Ellis Jr., DO [address] [place] [address] Referral ID Status Reason Start Date Expiration Date Visits Re quested Visits Authorized [id number] Closed 10/23/2024 11/17/2025 1 1 Specialty Diagnoses / Procedures Referred By Contac t Referred To Contact Diagnoses Dysphagia, unspecified type Iron deficiency anemia, unspecified iron deficiency anemia type Procedures XR FLUORO MODIFIED BARIUM SWALLOW WITH SPEECH Delilah Ellis Jr., DO [address] [place] [address] Referral ID Status Reason Start Date Expiration Date Visits Re quested Visits Authorized [id number] Closed 10/23/2024 11/17/2025 2 2 Health Concerns [...] the event of a Fluress shortage, administer Gladstone-Fluor 1 drop into both eyes as directed [...] section and content) DATE CREATED AUTHOR 07/28/2019 [facility] DATE CREATED AUTHOR AUTHOR'S ORGANIZ ATION 11/02/2022 [facility] DATE CREATED AUTHOR AUTHOR'S ORGANIZ ATION 02/06/2023 [facility] DATE CREATED AUTHOR AUTHOR'S ORGANIZ ATION 07/13/2023 [facility] DATE CREATED AUTHOR AUTHOR'S ORGANIZ ATION 08/22/2023 [facility] DATE CREATED AUTHOR AUTHOR'S ORGANIZ ATION 10/11/2023 [facility] DATE CREATED AUTHOR AUTHOR'S ORGANIZ ATION 06/14/2024 [facility] [place] [facility] DATE CREATED AUTHOR AUTHOR'S ORGANIZ ATION 10/20/2024 [facility] DATE CREATED AUTHOR AUTHOR'S ORGANIZ ATION 11/03/2024 [facility] DATE CREATED AUTHOR AUTHOR'S ORGANIZ ATION 11/07/2024 [facility] DATE CREATED AUTHOR AUTHOR'S ORGANIZ ATION 04/08/2025 [facility] DATE CREATED AUTHOR AUTHOR'S ORGANIZ ATION 04/16/2025 [facility] DATE CREATED AUTHOR AUTHOR'S ORGANIZ ATION 05/24/2025 [facility] DATE CREATED AUTHOR AUTHOR'S ORGANIZ ATION 07/10/2025 [facility] DATE CREATED AUTHOR AUTHOR'S ORGANIZ ATION 08/11/2025 [facility] Reason for Visit (unrecogniz ed section and content) Reason Comments Shoulder Pain Reason Comments New Patient Urinary Incontinence Specialty Diagnoses / Procedures Referred By Contac t Referred To Contact Urology Diagnoses Mixed stress and urge incontinence Fernie Paredes, DO [address] [place] [address] Washington Garner MD [address] [facility], [place] [address] Referral ID Status Reason Start Date Expiration Date V isits Requested Visits Authorized [id number] New Request 12/30/2021 01/24/2023 1 1 Reason Comments Pain Follow-up Specialty Diagnoses / Procedures Referred By Contac t Referred To Contact Diagnoses Osteoarthritis of left sacroiliac joint Procedures US IMAGING FOR ORTHO Garry Stephens MD [address] [place] [address] [place] [address] Referral ID Status Reason Start Date Expiration Date V isits Requested Visits Authorized [id number] New Request 03/02/2022 03/27/2023 1 1 Reason [...] study done around 4 years ago at [facility] Reason Comments Post Op Visit 08/31/2022 Mid urethr al sling, cysto, anterior and posterior colporrhaphy. Reason Comments Immunization/Injection Specialty Diagnoses / Procedures Referred By Contac t Referred To Contact Diagnoses Sacroiliitis Procedures XR SPINE LUMBAR W BENDING Isreal Sigala MD [address] [facility] [address] [place] [address] [facility] Referral ID Status Reason Start Date Expiration Date V isits Requested Visits Authorized [id number] New Request 10/12/2022 11/06/2023 1 1 Reason [...] BONE LENGTH STUDY Gonsalo Blackwood MD [address] [place] [address] Referral ID Status Reason Start Date Expiration Date V isits Requested Visits Authorized [id number] New Request 11/05/2022 11/30/2023 1 1 Reason [...] MAMMO SCREENING WITH ALEXANDER BILATERAL 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, 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 [id number] [place] [address] [facility] [address] [place] [address] Referral ID Status Reason Start Date Expiration Date Visits Re quested Visits Authorized [id number] Closed 02/02/2022 02/27/2023 1 1 Reason Comments Central Retinal Artery Occlusion Follow Up Left eye Specialty Diagnoses / Procedures Referred By Contac t Referred To Contact Bone Densitometry Diagnoses Asymptomatic postmenopausal state Procedures BONE DENSITY AXIAL (HIP, PELVIS, SPINE) Fernie Paredes, DO [address] [place] [address] Mayra Ont [facility] [address] [place] [address] Referral ID Status Reason Start Date Expiration Date Visits Re quested Visits Authorized [id number] Closed 02/14/2023 03/10/2024 1 1 Reason Comments [...] Contact Podiatry Diagnoses Toe infection Shae Whittington, 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 [address] [place] [address] Dawn Uriarte, DPM [address] [place] [address] Referral ID Status Reason Start Date Expiration Date V isits Requested Visits Authorized [id number] New Request 04/21/2023 05/15/2024 1 1 Reason Comments Condition Update Reason Comments Ulcer Follow-up Reason Comments Results Specialty Diagnoses / Procedures Referred By Contac t Referred To Contact Diagnoses Cellulitis and abscess of toe of left foot Procedures XR FOOT LEFT 3 VIEWS Dawn Uriarte, DPM [address] [place] [address] Referral ID Status Reason Start Date Expiration Date V isits Requested Visits Authorized [id number] New Request 06/14/2023 07/08/2024 1 1 Specialty Diagnoses / Procedures Referred By Contac t Referred To Contact Magnetic Resonance Imaging Diagnoses Lumbar spondylosis Procedures MRI SPINE LUMBAR WITHOUT CONTRAST TN MRI, LUMBAR SPINE Isreal Sigala MD [address] [facility] [address] [place] [address] [facility] Ont Mri [address] [place] [address] Referral ID Status Reason Start Date Expiration Date Visits Re quested Visits Authorized [id number] Closed 06/07/2023 07/01/2024 1 1 Reason Comments Urodynamics Urinary Incontinence , Dysuria Specialty Diagnoses / Procedures Referred By Contac t Referred To Contact Diagnoses Urinary incontinence, unspecified type Dysuria Procedures URODYNAMICS Dariusz Rangel MD [address] [place] [address] Referral ID Status Reason Start Date Expiration Date Visits Re quested Visits Authorized [id number] Closed 06/01/2022 06/26/2023 1 1 Reason Comments Ulcer Cellulitis Follow-up Specialty Diagnoses / Procedures Referred By Contac t Referred To Contact Magnetic Resonance Imaging Diagnoses Cellulitis and abscess of toe of left foot Procedures MRI FOOT LEFT WITHOUT CONTRAST TN MRI, LOWER EXTREM Dawn Uriarte DPM [address] [place] [address] [address] Referral ID Status Reason Start Date Expiration Date Visits Re quested Visits Authorized [id number] Closed 06/28/2023 07/22/2024 1 1 Reason Comments Sleep Apnea Specialty Diagnoses / Procedures Referred By Contac t Referred To Contact Dentistry / DENTISTRY Diagnoses Obstructive sleep apnea (adult) (pediatric) OA Impressions Procedures ORAL DEVICE/APPLIANCE CUSFAB EST PATIENT Fernie Paredes, DO [address] [address] Tom Srivastava, DMD [address] [place] [address] Referral ID Status Reason Start Date Expiration Date V isits Requested Visits Authorized [id number] Authorized 10/24/2022 10/23/2023 99 99 Reason Comments New Patient Cellulitis and absce ss of toe of left foot Specialty Diagnoses / Procedures Referred By Contac t Referred To Contact Infectious Diseases Diagnoses Cellulitis and abscess of toe of left foot Dawn Uriarte DPM [address] [place] [address] Monse Shipley MD [address] [place] [address] Referral ID Status Reason Start Date Expiration Date V isits Requested Visits Authorized [id number] New Request 06/28/2023 07/22/2024 1 1 Specialty Diagnoses / Procedures Referred By Contac t Referred To Contact Diagnoses Abscess of fourth toe of left foot Cellulitis of fourth toe, left Abscess of fourth toe of left foot [L02.612] Cellulitis of fourth toe, left [L03.032] Procedures TN DEEP DISSEC FOOT INFEC,1 BURSA I&D BURSA FOOT Dawn Uriarte, ANDREA [address] [place] [id number] Referral ID Status Reason Start Date Expiration Date Visits Re quested Visits Authorized [id number] 06/29/2023 1 1 Reason Comments Follow-up 1 [...] sequela Recurrent infections Monse Shipley MD [address] [place] [id number] [facility] [address] [place] [phone] Referral ID Status Reason Start Date Expiration Date V isits Requested Visits Authorized [id number] New Request 07/22/2023 08/15/2024 1 1 Reason Comments Infusion Visit Invanz Reason Comments Infusion Visit Reason Comments Follow-up Follow up Specialty Diagnoses / Procedures Referred By Contac t Referred To Contact Dentistry / DENTISTRY Diagnoses Obstructive sleep apnea (adult) (pediatric) OA Impressions Procedures ORAL DEVICE/APPLIANCE CUSFAB EST PATIENT Fernie Paredes, DO [address] [place] [address] Tom Srivastava, DMD [address] [place] [address] Reason Comments Floaters Both Eyes continues Central [...] IMAGING FOR ORTHO Garry Stephens MD [address] [facility] [place] [address] [place] [address] Referral ID Status Reason Start Date Expiration Date V isits Requested Visits Authorized [id number] New Request 09/26/2023 10/20/2024 1 1 Reason [...] CONTRAST Naty Bhakta MD [address] [facility] 5th [place] [address] Referral ID Status Reason Start Date Expiration Date V isits Requested Visits Authorized [id number] New Request 09/21/2023 10/15/2024 1 1 Reason Comments Follow-up Reason Comments Chronic Kidney Disease BUN 19Creatinine 0.88 Reason Comments Recurrent Infections Infection of the fo urth toe left foot pt denies fevers nauseas vomiting sob Reason Comments Follow-up 45 day LAAO f/u--no complaints today Reason Comments Follow-up Joint Injection Referral ID Status Reason Start Date Expiration Date V isits Requested Visits Authorized [id number] New Request 01/10/2024 02/03/2025 1 1 Specialty Diagnoses / Procedures Referred By Alonzo t Referred To Contact Diagnoses Encounter for screening mammogram for malignant neoplasm of breast Procedures MAMMO SCREENING WITH ALEXANDER BILATERAL 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, 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 [id number] [place] [address] Referral ID Status Reason Start Date Expiration Date Visits Re quested Visits Authorized [id number] Closed 02/03/2023 02/28/2024 1 1 Specialty Diagnoses / Procedures Referred By Contac t Referred To Contact Diagnoses Sacroiliitis, not elsewhere classified Procedures CT PELVIS WITHOUT CONTRAST TN CT SCAN,PELVIS,W/O CONTRAST Isreal Sigala MD [address] [facility] [address] [place] [id number] Referral ID Status Reason Start Date Expiration Date Visits Re quested Visits Authorized [id number] Closed 02/15/2024 03/11/2025 1 1 Reason Comments New Patient Thyroid Problem Hyperthyroidism Specialty Diagnoses / Procedures Referred By Contac t Referred To Contact Endocrinology, Diabetes & Metabolism Diagnoses Hyperthyroidism Fernie Paredes, DO [address] [facility] [address] [place] [address] Tom Mcmillan MD [address] [place] [phone] Referral ID Status Reason Start Date Expiration Date Visits Re quested Visits Authorized [id number] Open 01/19/2024 02/12/2025 1 1 Specialty Diagnoses / Procedures Referred By Contac t Referred To Contact Diagnoses Abnormal thyroid stimulating hormone (TSH) level Dysphagia, unspecified type Hyperthyroidism Procedures US THYROID Aviva Mera CNP [address] [place] [phone] Referral ID Status Reason Start Date Expiration Date Visits Re quested Visits Authorized [id number] Closed 03/12/2024 04/06/2025 1 1 Reason Comments Thyroid Problem Abnormal thyroid sti mulating hormone (TSH) level Specialty Diagnoses / Procedures Referred By Contac t Referred To Contact Diagnoses Sacroiliitis Sacroiliitis [M46.1] Procedures TN ARTHRODESIS SI JOINT PERCUTANEOUS/MIN INVASIVE CHG FLUOROSCOPY UP TO 1 HOUR PHYSICIAN/QHP TIME TN IMPLANT/INSERT DEVICE, NOC PROSTHETIC IMPLANT NOS ARTHRODESIS SACROILIAC JOINT MINIMALLY INVASIVE W/ TRANSFIXING DEVICE FLUOROSCOPY IN OR Isreal Sigala MD [address] [facility] [address] [place] [address] Referral ID Status Reason Start Date Expiration Date Visits Re quested Visits Authorized [id number] 04/03/2024 1 1 Reason Comments Follow-up 6 [...] deficiency anemia type Procedures DIAGNOSTIC UPPER ENDOSCOPY TN ESOPHAGOGASTRODUODENOSCOPY TRANSORAL DIAGNOSTIC Delilah Ellis Jr., DO [address] [place] [address] Referral ID Status Reason Start Date Expiration Date Visits Re quested Visits Authorized [id number] Closed 10/23/2024 11/17/2025 1 1 Reason Comments Chronic Kidney Disease Labs 10/15 BUN 13 cr 0.90 Specialty Diagnoses / Procedures Referred By Contac t Referred To Contact Diagnoses Dysphagia, unspecified type Iron deficiency anemia, unspecified iron deficiency anemia type Procedures XR FLUORO MODIFIED BARIUM SWALLOW WITH SPEECH Delilah Ellis Jr., [address] [address] Referral ID Status Reason Start Date Expiration Date Visits Re quested Visits Authorized [id number] Closed 10/23/2024 11/17/2025 2 2 Reason Comments Post Op Visit Reason Comments New Patient Anemia Specialty Diagnoses / Procedures Referred By Contac t Referred To Contact Gastroenterology Diagnoses Iron deficiency anemia, unspecified iron deficiency anemia type Fernie Paredes DO [address] [address] Phone: tel: fax: Delilah Ellis Jr., DO [address] [place] [address] Phone: tel: fax: Referral ID Status Reason Start Date Expiration Date V isits Requested Visits Authorized [id number] New Request 07/09/2024 08/03/2025 1 1 Reason Comments Vomiting Weight Loss Consult Reason Comments Diabetes Reason Comments Consult Results Reason Comments Annual Exam 65 yo here for raciel sesay exam. Last pap done 02.03.2023 - negative. Mammo 01.23.2024. dexa 03.01.2023 - WNL. Last colonoscopy - 04.07.2018 Reason Comments Suicidal Arrives via [facility], pt reportedly attempted suicide yesterday but was [...] with left-sided sciatica Fernie Paredes DO [address] [facility] [address] [place] [address] Phone: tel: fax: Bashir Christianson MD [address] [place] [address] Phone: tel: fax: Referral ID Status Reason Start Date Expiration Date V isits Requested Visits Authorized [id number] New Request 03/26/2025 04/20/2026 1 1 Reason Comments Status post YAG laser right eye Care Teams (unrecognized sec tion and content) Orange Grower Relationship Specialty Start Date End Date Fernie Paredes DO PCP - General Family Medicine 04/07/18 Aftab Bertrand MBBS [address] [place] [address] [place] [address] Medical Oncology 10/22/15 Naty Bhakta MD [address] [place] [address] Hematology 11/01/16 Orange Grower Relationship Specialty Start Date End Date Fernie Paredes, DO PCP - General Family Medicine 04/07/18 Aftab Bertrand MBBS [address] [place] [address] [place] [address] Medical Oncology 10/22/15 Naty Bhakta MD [address] [place] [address] Hematology 11/01/16 Orange Grower Relationship Specialty Start Date End Date Fernie Paredes, DO PCP - General Family Medicine 04/07/18 Aftab Bertrand MBBS [address] [place] [address] [place] [address] Medical Oncology 10/22/15 Naty Bhakta MD [address] [place] [address] Hematology 11/01/16 Orange Grower Relationship Specialty Start Date End Date Fernie Paredes, DO PCP - General Family Medicine 04/07/18 Aftab Bertrand MBBS [address] [place] [address] [place] [address] Medical Oncology 10/22/15 Naty Bhakta MD [address] [place] [address] Hematology 11/01/16 Orange Grower Relationship Specialty Start Date End Date Fernie Paredes, DO PCP - General Family Medicine 04/07/18 Aftab Bertrand MBBS [address] [place] [address] [place] [address] Medical Oncology 10/22/15 Naty Bhakta MD [address] [place] [address] Hematology 11/01/16 Orange Grower Relationship Specialty Start Date End Date Fernie Paredes, DO PCP - General Family Medicine 04/07/18 Aftab Bertrand MBBS [address] [place] [address] Medical Oncology 10/22/15 Naty Bhakta MD [address]th [place] [address] Hematology 11/01/16 Orange Grower Relationship Specialty Start Date End Date Fernie Paredes, DO PCP - General Family Medicine 04/07/18 Aftab Bertrand MBBS [address] [place] [address] [place] [address] Medical Oncology 10/22/15 Naty Bhakta MD [address]th [place] [address] Hematology 11/01/16 Orange Grower Relationship Specialty Start Date End Date Fernie Paredes, DO PCP - General Family Medicine 04/07/18 Aftab Bertrand MBBS [address] [place] [address] [place] [address] Medical Oncology 10/22/15 Naty Bhakta MD [address] 5th [place] [address] Hematology 11/01/16 Orange Grower Relationship Specialty Start Date End Date Fernie Paredes, DO PCP - General Family Medicine 04/07/18 Aftab Bertrand MBBS [address] [place] [address] [place] [address] Medical Oncology 10/22/15 Naty Bhakta MD [address] 5th [place] [address] Hematology 11/01/16 Orange Grower Relationship Specialty Start Date End Date Fernie Paredes, DO PCP - General Family Medicine 04/07/18 Aftab Bertrand MBBS [address] [place] [address] [place] [address] Medical Oncology 10/22/15 Naty Bhakta MD [address] 5th [place] [address] Hematology 11/01/16 Orange Grower Relationship Specialty Start Date End Date Fernie Paredes, DO PCP - General Family Medicine 04/07/18 Aftab Bertrand MBBS [address] [place] [address] [place] [address] Medical Oncology 10/22/15 Naty Bhatka MD [address] 5th [place] [address] Hematology 11/01/16 Orange Grower Relationship Specialty Start Date End Date Roxann Yan MD PCP - General Internal Medicine 07/23/15 Orange Grower Relationship Specialty Start Date End Date Fernie Paredes DO PCP - General Family Medicine 04/07/18 Aftab Bertrand MBBS [address] [place] [address] [place] [address] Medical Oncology 10/22/15 Naty Bhakta MD [address] 5th [place] [address] Hematology 11/01/16 Orange Grower Relationship Specialty Start Date End Date Fernie Paredes DO PCP - General Family Medicine 04/07/18 Aftab Bertrand MBBS [address] [place] [address] [place] [address] Medical Oncology 10/22/15 Naty Bhakta MD [address] 5th [place] [address] Hematology 11/01/16 Orange Grower Relationship Specialty Start Date End Date Roxann Yan MD PCP - General Internal Medicine 07/23/15 10/29/22 Fernie Paredes DO [address] [place] [address] PCP - General Family Medicine 10/30/22 Orange Grower Relationship Specialty Start Date End Date Fernie Paredes DO [address] [place] [address] PCP - General Family Medicine 10/30/22 Orange Grower Relationship Specialty Start Date End Date Fernie Paredes DO [address] [place] [address] PCP - General Family Medicine 10/30/22 Orange Grower Relationship Specialty Start Date End Date Fernie Paredes DO [address] [place] [address] PCP - General Family Medicine 10/30/22 Orange Grower Relationship Specialty Start Date End Date Fernie Paredes DO [address] [place] [address] PCP - General Family Medicine 10/30/22 Orange Grower Relationship Specialty Start Date End Date Fernie Paredes DO [address] [place] [address] PCP - General Family Medicine 10/30/22 Orange Grower Relationship Specialty Start Date End Date Fernie Paredes DO PCP - General Family Medicine 04/07/18 Aftab Bertrand MBBS [address] [facility] [place] [address] Medical Oncology 10/22/15 Naty Bhakta MD [address]th [place] [address] Hematology 11/01/16 Orange Grower Relationship Specialty Start Date End Date Fernie Paredes DO PCP - General Family Medicine 04/07/18 Aftab Bertrand MBBS [address] [place] [address] Medical Oncology 10/22/15 Naty Bhakta MD [address] 5th [place] [address] Hematology 11/01/16 Orange Grower Relationship Specialty Start Date End Date Fernie Paredes, DO [address] [place] [address] PCP - General Family Medicine 10/30/22 Orange Grower Relationship Specialty Start Date End Date Fernie Paredes, DO PCP - General Family Medicine 04/07/18 Aftab Bertrand MBBS [address] [place] [address] [place] [address] Medical Oncology 10/22/15 Naty Bhakta MD [address] [place] [address] Hematology 11/01/16 Orange Grower Relationship Specialty Start Date End Date Fernie Paredes, DO [address] [place] [address] PCP - General Family Medicine 10/30/22 Orange Grower Relationship Specialty Start Date End Date Fernie Paredes, DO PCP - General Family Medicine 04/07/18 Aftab Bertrand MBBS [address] [place] [address] Medical Oncology 10/22/15 Naty Bhakta MD [address]th [place] [address] Hematology 11/01/16 Orange Grower Relationship Specialty Start Date End Date Fernie Paredes, DO PCP - General Family Medicine 04/07/18 Aftab Bertrand, [employer] [address] [place] [address] [place] [address] Medical Oncology 10/22/15 Naty Bhakta MD [address] 5th [place] [address] Hematology 11/01/16 Orange Grower Relationship Specialty Start Date End Date Fernie Paredes, DO [address] [place] [address] PCP - General Family Medicine 10/30/22 Orange Grower Relationship Specialty Start Date End Date Fernie Paredes, DO PCP - General Family Medicine 04/07/18 Aftab Bertrand MBBS [address] [place] [address] [place] [address] Medical Oncology 10/22/15 Naty Bhakta MD [address]th [place] [address] Hematology 11/01/16 Orange Grower Relationship Specialty Start Date End Date Fernie Paredes DO PCP - General Family Medicine 04/07/18 Aftab Bertrand MBBS [address] [place] [address] [place] [address] Medical Oncology 10/22/15 Naty Bhakta MD [address]th [place] [address] Hematology 11/01/16 Orange Grower Relationship Specialty Start Date End Date Fernie Paredes DO [address] [place] [address] PCP - General Family Medicine 04/07/18 Aftab Bertrand MBBS [address] [place] [address] Medical Oncology 10/22/15 Naty Bhakta MD [address] [place] [address] Hematology 11/01/16 Orange Grower Relationship Specialty Start Date End Date Fernie Paredes DO [address] [place] [address] PCP - General Family Medicine 04/07/18 Aftab Bertrand MBBS [address] [place] [address] [place] [address] Medical Oncology 10/22/15 Naty Bhakta MD [address] [place] [address] Hematology 11/01/16 Orange Grower Relationship Specialty Start Date End Date Fernie Paredes DO [address] [place] [address] PCP - General Family Medicine 04/07/18 Aftab Bertrand MBBS [address] [place] [address] [place] [address] Medical Oncology 10/22/15 Naty Bhakta MD [address] [place] [address] Hematology 11/01/16 Orange Grower Relationship Specialty Start Date End Date Fernie Paredes DO [address] [place] [address] PCP - General Family Medicine 04/07/18 Aftab Bertrand MBBS [address] [place] [address] Medical Oncology 10/22/15 Naty Bhakta MD [address] [place] [address] Hematology 11/01/16 Orange Grower Relationship Specialty Start Date End Date Fernie Paredes DO [address] [place] [address] PCP - General Family Medicine 04/07/18 Aftab Bertrand MBBS [address] [place] [address] Medical Oncology 10/22/15 Naty Bhakta MD [address] [place] [address] Hematology 11/01/16 Orange Grower Relationship Specialty Start Date End Date Fernie Paredes DO [address]th [place] [address] PCP - General Family Medicine 04/07/18 Aftab Bertrand MBBS [address] [place] [address] Medical Oncology 10/22/15 Naty Bhakta MD [address]th [place] [address] Hematology 11/01/16 Orange Grower Relationship Specialty Start Date End Date Fernie Paredes DO [address] [place] [address] PCP - General Family Medicine 04/07/18 Aftab Bertrand MBBS [address] [place] [address] Medical Oncology 10/22/15 Naty Bhakta MD [address] [place] [address] Hematology 11/01/16 Orange Grower Relationship Specialty Start Date End Date Fernie Paredes DO [address] [place] [address] PCP - General Family Medicine 04/07/18 Aftab Bertrand MBBS [address] [place] [address] Medical Oncology 10/22/15 Naty Bhakta MD [address] [place] [address] Hematology 11/01/16 Orange Grower Relationship Specialty Start Date End Date Fernie Paredes DO [address] [place] [address] PCP - General Family Medicine 10/30/22 Orange Grower Relationship Specialty Start Date End Date Fernie Paredes DO [address] [place] [address] PCP - General Family Medicine 04/07/18 Aftab Bertrand MBBS [address] [facility] [place] [address] Medical Oncology 10/22/15 Naty Bhakta MD [address] [place] [address] Hematology 11/01/16 Orange Grower Relationship Specialty Start Date End Date Fernie Paredes DO [address] [place] [address] PCP - General Family Medicine 04/07/18 Aftab Bertrand MBBS [address] [facility] [place] [address] Medical Oncology 10/22/15 Naty Bhakta MD [address] [place] [address] Hematology 11/01/16 Orange Grower Relationship Specialty Start Date End Date Fernie Paredes DO [address]th [place] [address] PCP - General Family Medicine 04/07/18 Aftab Bertrand MBBS [address] [place] [address] Medical Oncology 10/22/15 Naty Bhakta MD [address]th [place] [address] Hematology 11/01/16 Orange Grower Relationship Specialty Start Date End Date Fernie Paredes DO [address] [place] [address] PCP - General Family Medicine 04/07/18 Aftab Bertrand MBBS [address] [place] [address] Medical Oncology 10/22/15 Naty Bhakta MD [address] [place] [address] Hematology 11/01/16 Orange Grower Relationship Specialty Start Date End Date Fernie Paredes DO [address] [place] [address] PCP - General Family Medicine 10/30/22 Orange Grower Relationship Specialty Start Date End Date Fernie Paredes DO [address]th [place] [address] PCP - General Family Medicine 04/07/18 Aftab Bertrand MBBS [address] [place] [address] Medical Oncology 10/22/15 Naty Bhakta MD [address]th [place] [address] Hematology 11/01/16 Orange Grower Relationship Specialty Start Date End Date Fernie Paredes DO [address]th [place] [address] PCP - General Family Medicine 04/07/18 Aftab Bertrand MBBS [address] [place] [address] Medical Oncology 10/22/15 Naty Bhakta MD [address]th [place] [address] Hematology 11/01/16 Orange Grower Relationship Specialty Start Date End Date Fernie Paredes DO [address] [place] [address] PCP - General Family Medicine 04/07/18 Aftab Bertrand MBBS [address] [place] [address] [place] [address] Medical Oncology 10/22/15 Naty Bhakta MD [address] [place] [address] Hematology 11/01/16 Orange Grower Relationship Specialty Start Date End Date Fernie Paredes DO [address]th [place] [address] PCP - General Family Medicine 04/07/18 Aftab Bertrand MBBS [address] [place] [address] Medical Oncology 10/22/15 Naty Bhakta MD [address]th [place] [address] Hematology 11/01/16 Orange Grower Relationship Specialty Start Date End Date Fernie Paredes DO [address]th [place] [address] PCP - General Family Medicine 04/07/18 Aftab Bertrand MBBS [address] [place] [address] Medical Oncology 10/22/15 Naty Bhakta MD [address]th [place] [address] Hematology 11/01/16 Orange Grower Relationship Specialty Start Date End Date Fernie Paredes DO [address]th [place] [address] PCP - General Family Medicine 04/07/18 Aftab Bertrand MBBS [address] [place] [address] Medical Oncology 10/22/15 Naty Bhakta MD [address]th [place] [address] Hematology 11/01/16 Orange Grower Relationship Specialty Start Date End Date Fernie Paredes DO [address]th [place] [address] PCP - General Family Medicine 04/07/18 Aftab Bertrand MBBS [address] [place] [address] Medical Oncology 10/22/15 Naty Bhakta MD [address]th [place] [address] Hematology 11/01/16 Orange Grower Relationship Specialty Start Date End Date Fernie Paredes DO [address]th [place] [address] PCP - General Family Medicine 04/07/18 Aftab Bertrand MBBS [address] [place] [address] Medical Oncology 10/22/15 Naty Bhakta MD [address]th [place] [address] Hematology 11/01/16 Orange Grower Relationship Specialty Start Date End Date Fernie Paredes DO [address]th [place] [address] PCP - General Family Medicine 04/07/18 Aftab Bertrand MBBS [address] [place] [address] [place] [address] Medical Oncology 10/22/15 Naty Bhakta MD [address]th [place] [address] Hematology 11/01/16 Orange Grower Relationship Specialty Start Date End Date Fernie Paredes DO [address]th [place] [address] PCP - General Family Medicine 04/07/18 Aftab Bertrand MBBS [address] [place] [address] [place] [address] Medical Oncology 10/22/15 Naty Bhakta MD [address]th [place] [address] Hematology 11/01/16 Orange Grower Relationship Specialty Start Date End Date Fernie Paredes DO [address] [place] [address] PCP - General Family Medicine 04/07/18 Aftab Bertrand MBBS [address] [place] [address] Medical Oncology 10/22/15 Naty Bhakta MD [address]th [place] [address] Hematology 11/01/16 Orange Grower Relationship Specialty Start Date End Date Fernie Paredes DO [address]th [place] [address] PCP - General Family Medicine 04/07/18 Aftab Bertrand MBBS [address] [place] [address] Medical Oncology 10/22/15 Naty Bhakta MD [address]th [place] [address] Hematology 11/01/16 Orange Grower Relationship Specialty Start Date End Date Fernie Paredes DO [address] [place] [address] PCP - General Family Medicine 04/07/18 Aftab Bertrand MBBS [address] [place] [address] Medical Oncology 10/22/15 Naty Bhakta MD [address] [place] [address] Hematology 11/01/16 Orange Grower Relationship Specialty Start Date End Date Fernie Paredes DO [address]th [place] [address] PCP - General Family Medicine 04/07/18 Aftab Bertrand MBBS [address] [place] [address] Medical Oncology 10/22/15 Naty Bhakta MD [address]th [place] [address] Hematology 11/01/16 Orange Grower Relationship Specialty Start Date End Date Fernie Paredes DO PCP - General Family Medicine 10/30/22 Team Status: Active Member Role Status Dates Elaine Ciesa STAFF SOFTWARE ENGINEER, STAFF SOFTWARE ENGINEER-C Family Provider Active Elaine Ciesa STAFF SOFTWARE ENGINEER, STAFF SOFTWARE ENGINEER-C Primary Care Provider Active Team Status: Inactive Member Role Status Dates Elaine Ciesa STAFF SOFTWARE ENGINEER, STAFF SOFTWARE ENGINEER-C Primary Care Provider Active BRE SHEA Attending Provider, Referring Provider Ac tive Team Status: Inactive Member Role Status Dates Elaine Jasminesa STAFF SOFTWARE ENGINEER, STAFF SOFTWARE ENGINEER-C Primary Care Provider Active Dr. Monse Shipley MD Attending Provider, Referring Prov ider Active Team Status: Inactive Member Role Status Dates Elaine Oquendo STAFF SOFTWARE ENGINEER, STAFF SOFTWARE ENGINEER-C Primary Care Provider Active Dr. Monse Shipley MD Attending Provider Active Team Status: Active Member Role Status Dates Elaine Lianga STAFF SOFTWARE ENGINEER, STAFF SOFTWARE ENGINEER-C Primary Care Provider Active Dr. Monse [place]ley MD Attending Provider, Referring Prov ider Active Orange Grower Relationship Specialty Start Date End Date Fernie Paredes DO PCP - General Family Medicine 10/30/22 Akua Warren OD [address] [place] [address] Optometry 08/08/23 Perry Reyna [facility] [place] [id number] Optometry 08/08/23 08/08/23 Orange Grower Relationship Specialty Start Date End Date Fernie Paredes DO [address] [place] [address] PCP - General Family Medicine 04/07/18 Aftab Bertrand MBBS [address] [place] [address] Medical Oncology 10/22/15 Naty Bhakta MD [address] [place] [address] Hematology 11/01/16 Orange Grower Relationship Specialty Start Date End Date Fernie Paredes DO PCP - General Family Medicine 10/30/22 Akua Warren OD [address] [place] [address] Optometry 08/08/23 Orange Grower Relationship Specialty Start Date End Date Fernie Paredes DO [address] [place] [address] PCP - General Family Medicine 04/07/18 Aftab Bertrand MBBS [address] [place] [address] Medical Oncology 10/22/15 Naty Bhakta MD [address] [place] [address] Hematology 11/01/16 Orange Grower Relationship Specialty Start Date End Date Fernie Paredes DO [address] [place] [address] PCP - General Family Medicine 04/07/18 Aftab Bertrand MBBS [address] [place] [address] [place] [address] Medical Oncology 10/22/15 Naty Bhakta MD [address] [place] [address] Hematology 11/01/16 Orange Grower Relationship Specialty Start Date End Date Fernie Paredes DO [address]th [place] [address] PCP - General Family Medicine 04/07/18 Aftab Bertrand MBBS [address] [place] [address] [place] [address] Medical Oncology 10/22/15 Naty Bhakta MD [address] [place] [address] Hematology 11/01/16 Orange Grower Relationship Specialty Start Date End Date Fernie Paredes DO [address] [place] [address] PCP - General Family Medicine 04/07/18 Aftab Bertrand MBBS [address] [place] [address] Medical Oncology 10/22/15 Naty Bhakta MD [address] [place] [address] Hematology 11/01/16 Orange Grower Relationship Specialty Start Date End Date Fernie Paredes DO [address] [place] [address] PCP - General Family Medicine 04/07/18 Aftab Bertrand MBBS [address] [place] [address] Medical Oncology 10/22/15 Naty Bhakta MD [address]th [place] [address] Hematology 11/01/16 Orange Grower Relationship Specialty Start Date End Date Fernie Paredes DO [address] [place], [place] [address] PCP - General Family Medicine 02/13/21 Orange Grower Relationship Specialty Start Date End Date Fernie Paredes DO [address] [place] [address] PCP - General Family Medicine 04/07/18 Aftab Bertrand MBBS [address] [place] [address] Medical Oncology 10/22/15 Naty Bhakta MD [address]th [place] [address] Hematology 11/01/16 Orange Grower Relationship Specialty Start Date End Date Fernie Paredes DO [address] [place], [place] [address] PCP - General Family Medicine 02/13/21 Delilah Calderon, [address] [place] [address] Consulting Physician Cardiovascular Disease 10/26/23 Orange Grower Relationship Specialty Start Date End Date Fernie Paredes DO [address] [place] [address] PCP - General Family Medicine 02/13/21 Delilah Calderon, [address] [place] [address] Consulting Physician Cardiovascular Disease 10/26/23 Orange Grower Relationship Specialty Start Date End Date Fernie Paredes DO [address] [place] [address] PCP - General Family Medicine 02/13/21 Delilah Calderon, [address] [place] [address] Consulting Physician Cardiovascular Disease 10/26/23 Orange Grower Relationship Specialty Start Date End Date Fernie Paredes DO [address] [place] [address] PCP - General Family Medicine 02/13/21 Delilah Calderon, [address] [place] [address] Consulting Physician Cardiovascular Disease 10/26/23 Orange Grower Relationship Specialty Start Date End Date Fernie Paredes DO [address] [place] [address] PCP - General Family Medicine 02/13/21 Delilah Calderon, [address] [place] [address] Consulting Physician Cardiovascular Disease 10/26/23 Orange Grower Relationship Specialty Start Date End Date Fernie Paredes DO [address] [place] [address] PCP - General Family Medicine 02/13/21 Delilah Calderon, [address] [place] [address] Consulting Physician Cardiovascular Disease 10/26/23 Orange Grower Relationship Specialty Start Date End Date Fernie Paredes DO [address] [place] [address] PCP - General Family Medicine 02/13/21 Delilah Calderon, [address] [place] [address] Consulting Physician Cardiovascular Disease 10/26/23 Orange Grower Relationship Specialty Start Date End Date Fernie Paredes DO [address] [place] [address] PCP - General Family Medicine 02/13/21 Delilah Calderon, [address] [place] [address] Consulting Physician Cardiovascular Disease 10/26/23 Orange Grower Relationship Specialty Start Date End Date Fernie Paredes DO [address] [place] [address] PCP - General Family Medicine 02/13/21 Delilah Calderon, [address] [place] [address] Consulting Physician Cardiovascular Disease 10/26/23 Orange Grower Relationship Specialty Start Date End Date Fernie Paredes DO [address]th [place] [address] PCP - General Family Medicine 04/07/18 Aftab Bertrand MBBS [address] [place] [address] Medical Oncology 10/22/15 Naty Bhakta MD [address] [place] [address] Hematology 11/01/16 Orange Grower Relationship Specialty Start Date End Date Fernie Paredes DO [address] [place] [address] PCP - General Family Medicine 04/07/18 Aftab Bertrand MBBS [address] [place] [address] Medical Oncology 10/22/15 Naty Bhakta MD [address] [place] [address] Hematology 11/01/16 Orange Grower Relationship Specialty Start Date End Date Fernie Paredes DO [address] [place] [address] PCP - General Family Medicine 04/07/18 Aftab Bertrand MBBS [address] [place] [address] Medical Oncology 10/22/15 Naty Bhakta MD [address] [place] [address] Hematology 11/01/16 Orange Grower Relationship Specialty Start Date End Date Fernie Paredes DO [address] [place] [address] PCP - General Family Medicine 04/07/18 Aftab Bertrand MBBS [address] [place] [address] Medical Oncology 10/22/15 Naty Bhakta MD [address] [place] [address] Hematology 11/01/16 Orange Grower Relationship Specialty Start Date End Date Fernie Paredes DO [address] [place] [address] PCP - General Family Medicine 04/07/18 Aftab Bertrand MBBS [address] [place] [address] Medical Oncology 10/22/15 Naty Bhakta MD [address] [place] [address] Hematology 11/01/16 Orange Grower Relationship Specialty Start Date End Date Fernie Paredes DO [address] [place] [address] PCP - General Family Medicine 04/07/18 Aftab Bertrand MBBS [address] [place] [address] Medical Oncology 10/22/15 Naty Bhakta MD [address] [place] [address] Hematology 11/01/16 Orange Grower Relationship Specialty Start Date End Date Fernie Paredes DO [address] [place] [address] PCP - General Family Medicine 04/07/18 Aftab Bertrand MBBS [address] [place] [address] Medical Oncology 10/22/15 Naty Bhakta MD [address] [place] [address] Hematology 11/01/16 Orange Grower Relationship Specialty Start Date End Date Fernie Paredes DO [address] [place] [address] PCP - General Family Medicine 02/13/21 Delilah Calderon, [address] [place] [address] Consulting Physician Cardiovascular Disease 10/26/23 Orange Grower Relationship Specialty Start Date End Date Fernie Paredes DO [address] [place] [phone] PCP - General Family Medicine 04/07/18 Aftab Bertrand MBBS [address] [place] [address] [place] [address] Medical Oncology 10/22/15 Naty Bhakta MD [address] [place] [phone] Hematology 11/01/16 Orange Grower Relationship Specialty Start Date End Date Fernie Paredes DO [address] [place] [phone] PCP - General Family Medicine 04/07/18 Aftab Bertrand MBBS [address] [place] [address] [place] [address] Medical Oncology 10/22/15 Naty Bhakta MD [address] [place] [phone] Hematology 11/01/16 Orange Grower Relationship Specialty Start Date End Date Fernie Paredes DO PCP - General Family Medicine 10/30/22 Akua Warren OD [address] [place] [id number] Optometry 08/08/23 Orange Grower Relationship Specialty Start Date End Date Fernie Paredes DO [address] [place] [phone] PCP - General Family Medicine 04/07/18 Aftab Bertrand MBBS [address] [place] [address] [place] [address] Medical Oncology 10/22/15 Naty Bhakta MD [address] 5th [place] [address] Hematology 11/01/16 Orange Grower Relationship Specialty Start Date End Date Fernie Paredes DO PCP - General Family Medicine 10/30/22 Akua Warren OD [address] [place] [address] Optometry 08/08/23 Orange Grower Relationship Specialty Start Date End Date Fernie Paredes DO [address] [place] [address] PCP - General Family Medicine 04/07/18 Aftab Bertrand MBBS [address] [place] [address] [place] [address] Medical Oncology 10/22/15 Naty Bhakta MD [address] [place] [address] Hematology 11/01/16 Orange Grower Relationship Specialty Start Date End Date Fernie Paredes DO [address] [place] [address] PCP - General Family Medicine 04/07/18 Aftab Bertrand MBBS [address] [place] [address] [place] [address] Medical Oncology 10/22/15 Naty Bhakta MD [address] 5th [place] [address] Hematology 11/01/16 Orange Grower Relationship Specialty Start Date End Date Fernie Paredes DO [address]th [place] [address] PCP - General Family Medicine 04/07/18 Aftab Bertrand MBBS Medical Oncology 10/22/15 Naty Bhakta MD [address]th [place] [address] Hematology 11/01/16 Orange Grower Relationship Specialty Start Date End Date Fernie Paredes DO [address]th [place] [address] PCP - General Family Medicine 04/07/18 Aftab Bertrand MBBS Medical Oncology 10/22/15 Naty Bhakta MD [address]th [place] [address] Hematology 11/01/16 Orange Grower Relationship Specialty Start Date End Date Fernie Paredes DO [address]th [place] [address] PCP - General Family Medicine 04/07/18 Aftab Bertrand MBBS Medical Oncology 10/22/15 Naty Bhakta MD [address]th [place] [address] Hematology 11/01/16 Orange Grower Relationship Specialty Start Date End Date Fernie Paredes DO [address]th [place] [address] PCP - General Family Medicine 04/07/18 Aftab Bertrand MBBS Medical Oncology 10/22/15 Naty Bhakta MD [address] [place] [address], [place] [address] Hematology 11/01/16 Orange Grower Relationship Specialty Start Date End Date Fernie Paredes DO [address] [place] [address], [place] [address] PCP - General Family Medicine 04/07/18 Aftab Bertrand MBBS Medical Oncology 10/22/15 Naty Bhakta MD [address]th [place] [address] Hematology 11/01/16 Orange Grower Relationship Specialty Start Date End Date Fernie Paredes DO [address] [place] [address] PCP - General Family Medicine 04/07/18 Aftab Bertrand MBBS Medical Oncology 10/22/15 Naty Bhakta MD [address] 5th [place] [address] Hematology 11/01/16 Orange Grower Relationship Specialty Start Date End Date Fernie Paredes DO [address]th [place] [address] PCP - General Family Medicine 04/07/18 Aftab Bertrand MBBS Medical Oncology 10/22/15 Naty Bhakta MD [address]th [place] [address] Hematology 11/01/16 Orange Grower Relationship Specialty Start Date End Date Fernie Paredes DO [address]th [place] [address] PCP - General Family Medicine 04/07/18 Aftab Bertrand MBBS Medical Oncology 10/22/15 Naty Bhakta MD [address]th [place] [address] Hematology 11/01/16 Orange Grower Relationship Specialty Start Date End Date Fernie Paredes DO [address]th [place] [address] PCP - General Family Medicine 04/07/18 Aftab Bertrand MBBS Medical Oncology 10/22/15 Naty Bhakta MD [address]th [place] [address] Hematology 11/01/16 Orange Grower Relationship Specialty Start Date End Date Fernie Paredes DO [address]th [place] [address] PCP - General Family Medicine 04/07/18 Aftab Bertrand MBBS Medical Oncology 10/22/15 Naty Bhakta MD [address]th [place] [address] Hematology 11/01/16 Orange Grower Relationship Specialty Start Date End Date Fernie Paredes DO [address]th [place] [address] PCP - General Family Medicine 04/07/18 Aftab Bertrand MBBS Medical Oncology 10/22/15 aNty Bhakta MD [address]th [place] [address] Hematology 11/01/16 Orange Grower Relationship Specialty Start Date End Date Fernie Paredes DO [address]th [place] [address] PCP - General Family Medicine 04/07/18 Aftab Bertrand MBBS Medical Oncology 10/22/15 Naty Bhakta MD [address]th [place] [address] Hematology 11/01/16 Orange Grower Relationship Specialty Start Date End Date Fernie Paredes DO [address]th [place] [address] PCP - General Family Medicine 04/07/18 Aftab Bertrand MBBS Medical Oncology 10/22/15 Naty Bhakta MD [address]th [place] [address] Hematology 11/01/16 Orange Grower Relationship Specialty Start Date End Date Fernie Paredes DO [address] [place] [address] PCP - General Family Medicine 04/07/18 Aftab Bertrand MBBS Medical Oncology 10/22/15 Naty Bhakta MD [address]th [place] [address] Hematology 11/01/16 Orange Grower Relationship Specialty Start Date End Date Fernie Paredes DO [address] 5th [place] [address] PCP - General Family Medicine 04/07/18 Aftab Bertrand MBBS Medical Oncology 10/22/15 Naty Bhakta MD [address] 5th [place] [address] Hematology 11/01/16 Orange Grower Relationship Specialty Start Date End Date Fernie Pareeds DO [address] [place] [address] PCP - General Family Medicine 02/13/21 Delilah Calderon DO [address] [place] [address] Consulting Physician Cardiovascular Disease 10/26/23 Orange Grower Relationship Specialty Start Date End Date Fernie Paredes DO [address] [address] PCP - General Family Medicine 04/04/25 Orange Grower Relationship Specialty Start Date End Date Fernie Paredes DO [address] [address] PCP - General Family Medicine 04/07/18 Aftab Bertrand MBBS Medical Oncology 10/22/15 Naty Bhakta MD [address] 5th [place] [address] Hematology 11/01/16 Orange Grower Relationship Specialty Start Date End Date Fernie Paredes DO [address] [facility] [address] [place] [address] PCP - General Family Medicine 04/07/18 Aftab Bertrand MBBS Medical Oncology 10/22/15 Naty Bhakta MD [address] [place] [address] Hematology 11/01/16 Orange Grower Relationship Specialty Start Date End Date Fernie Paredes DO [address] [address] PCP - General Family Medicine 04/07/18 Aftab Bertrand MBBS Medical Oncology 10/22/15 Naty Bhakta MD [address] [place] [address] Hematology 11/01/16 Orange Grower Relationship Specialty Start Date End Date Fernie Paredes DO PCP - General Family Medicine 10/30/22 Akua Warren OD [address] [place] [address] Optometry 08/08/23 Orange Grower Relationship Specialty Start Date End Date Fernie Paredes DO [address] [facility] [address] [place] [address] PCP - General Family Medicine 04/07/18 Aftab Bertrand MBBS Medical Oncology 10/22/15 Naty Bhakta MD [address]th [place] [address] Hematology 11/01/16 Orange Grower Relationship Specialty Start Date End Date Fernie Paredes DO [address] [place] [address] PCP - General Family Medicine 04/07/18 Aftab Bertrand MBBS Medical Oncology 10/22/15 Naty Bhakta MD [address] [place] [address] Hematology 11/01/16 Orange Grower Relationship Specialty Start Date End Date Fernie Paredes DO [address] [place] [address] PCP - General Family Medicine 04/07/18 Aftab Bertrand MBBS Medical Oncology 10/22/15 Naty Bhakta MD [address] 5th [place] [address] Hematology 11/01/16 Orange Grower Relationship Specialty Start Date End Date Fernie Paredes DO PCP - General Family Medicine 10/30/22 Akua Warren OD Optometry 08/08/23 Orange Grower Relationship Specialty Start Date End Date Fernie Paredes DO [address] [place], [place] [phone] PCP - General Family Medicine 04/07/18 Aftab Bertrand MBBS Medical Oncology 10/22/15 Naty Bhakta MD [address] 5th [place] [address] Hematology 11/01/16 Orange Grower Relationship Specialty Start Date End Date Fernie Paredes DO PCP - General Family Medicine 04/07/18 Aftab Bertrand MBBS Medical Oncology 10/22/15 Naty Bhakta MD Hematology 11/01/16 Orange Grower Relationship Specialty Start Date End Date Fernie Paredes DO PCP - General Family Medicine 04/07/18 Aftab Bertrand MBBS Medical Oncology 10/22/15 Naty Bhakta MD Hematology 11/01/16 Orange Grower Relationship Specialty Start Date End Date Fernie Paredes DO PCP - General Family Medicine 04/07/18 Aftab Bertrand MBBS Medical Oncology 10/22/15 Naty Bhakta MD Hematology 11/01/16 Orange Grower Relationship Specialty Start Date End Date Fernie Paredes DO [address] [place] [phone] PCP - General Family Medicine 04/07/18 Aftab Bertrand MBBS [address] [place] [address] Medical Oncology 10/22/15 Naty Bhakta MD [address] [place] [phone] Hematology 11/01/16 Orange Grower Relationship Specialty Start Date End Date Fernie Paredes DO [address] [address] PCP - General Family Medicine 04/07/18 Aftab Bertrand MBBS [address] [place] [address] Medical Oncology 10/22/15 Naty Bhakta MD [address] [place] [address] Hematology 11/01/16 Orange Grower Relationship Specialty Start Date End Date Fernie Paredes DO [address] [address] PCP - General Family Medicine 04/07/18 Aftab Bertrand MBBS [address] [place] [address] Medical Oncology 10/22/15 Naty Bhakta MD [address] [place] [phone] Hematology 11/01/16 Scheduled Active and Recently Administ [...] 0810 ($$New Bag$$ - Provider: Francois Ashford APRN-PORT STEWARD)1023 ($$New Bag$$ - Provider: ALBIN Breaux)1155 (Stopped [...] Constipation 1st Line, Post-op/Post-Proc Bupivacaine-Epinephrine (MARCAINE;SENSORCAINE-MPF) 0.5% -1:869330 injection NEEDED, Starting on Lina 06/17/22 at 1001, Until Lina 06/17/22 at 1444, Intra-op/Intra-Proc 1001 (Given - Provid er: Isreal Sigala MD) ceFAZolin (ANCEF) 2 g in dextrose 100 mL premix IVPB (COMPLETED) 2 g, Intravenous, Administer over 30 Minutes, RN COMPLEX CARE TO PROCEDURE, 1 dose, Starting on Lina 06/17/22 at 0650, Until Discontinued, Other, Pre-operative antibiotic, Pre-op/Pre-Proc 0930 (Given - Provid er: Francois Ashford, ASSEMBLER ARRANGER-PORT STEWARD) hydroCODone-acetaminophen (NORCO) 5-325 MG per tablet 1-2 [...] Starting on Lina 06/17/22 at 1043, Until Lian 06/17/22 at 1444, Flush, per IV care [...] 0720 ($$New Bag$$ - Provider: Yoselin Bedolla LPN)3254 (Stopped - Provider: Nery Germain RN) PRN [...] Switch to gravity)1206 (Restarted - Provider: JOSE PittsPORT STEWARD)1242 (Stopped - Provider: JOSE PittsPORT STEWARD) Sodium chloride 0.9% IV solution Intravenous, at [...] Order 05/01/2024 05/02/2024 05/03/2024 BUPivacaine-EPINEPHrine (MARCAINE;SENSORCAINE-MPF) 0.5% -1:259544 injection (CANCELED) NEEDED, Starting on Lina 05/03/24 at 1309, Until Lina 05/03/24 at 1428, Intra-op/Intra-Proc 1309 (Given - Provid er: Isreal Sigala MD - Comment: placed on sterile field for use during the case. site is right hip for sacroiliac joint) ceFAZolin (ANCEF) 2 g in dextrose 100 mL premix IVPB (COMPLETED) 2 g, Intravenous, Administer over 15 Minutes, RN COMPLEX CARE TO PROCEDURE, 1 dose, Starting on Lina 05/03/24 at 0929, Until Lina 05/03/24 at 1237, Other, Pre-operative antibiotic, Pre-op/Pre-Proc 1237 ($$New Bag$$ - Provider: Alan Estevez APRN-PORT STEWARD) hydroCODone-acetaminophen (NORCO) 5-325 MG per tablet 1-2 [...] Switch to gravity)1210 (Restarted - Provider: JOSE HendricksPORT STEWARD)1418 (Stopped - Provider: Annalee Lindsay RN) ROPivacaine [...] 2 g, Intravenous, Administer over 15 Minutes, RN COMPLEX CARE TO PROCEDURE, 1 dose, Starting on Tue11/12/24 at 0939, Until Tue11/12/24 at 1624, Other, Pre-operative antibiotic, Pre-op/Pre-Proc 1214 ($$New Bag$$ - Provider: Garry Lowery APRN-PORT STEWARD)1624 (Stopped - Provider: Annalee Lindsay RN) cloNIDine [...] or prosecute any alcohol or drug abuse patient.[facility] the event this information is protected by [...] or prosecute any alcohol or drug abuse patient.[facility]imaIn the event this information is protected by the Federal Confidentiality of Alcohol and Drug Abuse Patient Records regulations: The Federal rules restrict any use of the information to criminally investigate or prosecute any alcohol or drug abuse patient.[facility]ima[facility] the event this information is protected by the Federal Confidentiality of Alcohol and Drug Abuse Patient Records regulations: The Federal rules restrict any use of the information to criminally investigate or prosecute any alcohol or drug abuse patient.[facility]imaIn the event this information is protected by the Federal Confidentiality of Alcohol and Drug Abuse Patient Records regulations: The Federal rules restrict any use of the information to criminally investigate or prosecute any alcohol or drug abuse patient.[facility]imaIn the event this information is protected by the Federal Confidentiality of Alcohol and Drug Abuse Patient Records regulations: The Federal rules restrict any use of the information to criminally investigate or prosecute any alcohol or drug abuse patient.[facility]imaIn the event this information is protected by the Federal Confidentiality of Alcohol and Drug Abuse Patient Records regulations: The Federal rules restrict any use of the information to criminally investigate or prosecute any alcohol or drug abuse patient.[facility]imaIn the event this information is protected by the Federal Confidentiality of Alcohol and Drug Abuse Patient Records regulations: The Federal rules restrict any use of the information to criminally investigate or prosecute any alcohol or drug abuse patient.[facility]imaIn the event this information is protected by the Federal Confidentiality of Alcohol and Drug Abuse Patient Records regulations: The Federal rules restrict any use of the information to criminally investigate or prosecute any alcohol or drug abuse patient.[facility]imaIn the event this information is protected by the Federal Confidentiality of Alcohol and Drug Abuse Patient Records regulations: The Federal rules restrict any use of the information to criminally investigate or prosecute any alcohol or drug abuse patient.[facility]imaIn the event this information is protected by the Federal Confidentiality of Alcohol and Drug Abuse Patient Records regulations: The Federal rules restrict any use of the information to criminally investigate or prosecute any alcohol or drug abuse patient.[facility]ima[facility] the event this information is protected by the Federal Confidentiality of Alcohol and Drug Abuse Patient Records regulations: The Federal rules restrict any use of the information to criminally investigate or prosecute any alcohol or drug abuse patient.[facility]imaIn the event this information is protected by the Federal Confidentiality of Alcohol and Drug Abuse Patient Records regulations: The Federal rules restrict any use of the information to criminally investigate or prosecute any alcohol or drug abuse patient.[facility]imaIn the event this information is protected by the Federal Confidentiality of Alcohol and Drug Abuse Patient Records regulations: The Federal rules restrict any use of the information to criminally investigate or prosecute any alcohol or drug abuse patient.[facility]imaIn the event this information is protected by the Federal Confidentiality of Alcohol and Drug Abuse Patient Records regulations: The Federal rules restrict any use of the information to criminally investigate or prosecute any alcohol or drug abuse patient.[facility]imaIn the event this information is protected by the Federal Confidentiality of Alcohol and Drug Abuse Patient Records regulations: The Federal rules restrict any use of the information to criminally investigate or prosecute any alcohol or drug abuse patient.[facility]imaIn the event this information is protected by the Federal Confidentiality of Alcohol and Drug Abuse Patient Records regulations: The Federal rules restrict any use of the information to criminally investigate or prosecute any alcohol or drug abuse patient.[facility]imaIn the event this information is protected by the Federal Confidentiality of Alcohol and Drug Abuse Patient Records regulations: The Federal rules restrict any use of the information to criminally investigate or prosecute any alcohol or drug abuse patient.[facility]imaIn the event this information is protected by the Federal Confidentiality of Alcohol and Drug Abuse Patient Records regulations: The Federal rules restrict any use of the information to criminally investigate or prosecute any alcohol or drug abuse patient.[facility]imaIn the event this information is protected by the Federal Confidentiality of Alcohol and Drug Abuse Patient Records regulations: The Federal rules restrict any use of the information to criminally investigate or prosecute any alcohol or drug abuse patient.[facility]imaIn the event this information is protected by the Federal Confidentiality of Alcohol and Drug Abuse Patient Records regulations: The Federal rules restrict any use of the information to criminally investigate or prosecute any alcohol or drug abuse patient.[facility]imaIn the event this information is protected by the Federal Confidentiality of Alcohol and Drug Abuse Patient Records regulations: The Federal rules restrict any use of the information to criminally investigate or prosecute any alcohol or drug abuse patient.[facility] <item> Privacy Markings (unrecogniz ed section and [...] BE BASED ON THE PRIMARY CLINICAL RECORDS. [facility]. provides no warranty or guarantee of the accuracy or completeness of information in this document.
--- NOTE | 2025-09-14 20:33 | NURSING ---
Patient asked this nurse to call daughter Laura to ask daughter to cancel some of her upcoming appointments. This nurse called daughter Laura and passed the information along,
[2025-09-15 02:45] VITALS: BP 133/55; PULSE 76; RESP 16; TEMP 36.6; O2SAT 96
[2025-09-15 04:54] LABS: Hematocrit 38.8 % (37-47); Hemoglobin 12.9 g/dL (12.0-15.0); Mean Corp Hgb Conc 33.2 g/dL (32-36); Mean Corpuscular Volume 94.4 fL (81-99); Mean Platelet Vol. 10.0 fl (6.2-12.0); Platelet Count 187 K/mm3 (150-450); RBC Distribution Width CV 14.6 % (11.6-14.6); RBC Distribution Width SD 50.7 fl (35.1-43.9); Red Blood Count 4.11 M/mm3 (4.2-5.4); White Blood Count 4.7 K/mm3 (4.4-11.0)
[2025-09-15 05:13] LABS: Anion Gap 11 (5-15); BUN 9 mg/dL (4-19); BUN/Creat Ratio 11.6 RATIO (10-20); Calcium,Total 9.2 mg/dL (7.6-11.0); Carbon Dioxide 24.9 mmol/L (21.0-32.0); Chloride 99 mmol/L (98-108); Estimated Creatinine Clearance 73.20 ml/min (50-250); Glucose 108 mg/dL (70-99); Potassium 4.1 mmol/L (3.3-5.1)
[2025-09-15] MEDS: Budesonide Respules 0.5 MG/2 ML AMPUL.NEB. INHALATION (06:30)
[2025-09-15 06:31] VITALS: PULSE 71; RESP 14; O2SAT 90
[2025-09-15 06:42] VITALS: BP 139/62; PULSE 65; RESP 16; TEMP 36.6; O2SAT 94
--- NOTE | 2025-09-15 07:15 | PN.HOSP_ITS ---
Reason for Visit Chief Complaint: Alcohol abuse with acute intoxication and desire for detox Subjective Subjective Denies any withdrawal symptoms. States that when she has gone off alcohol before she has never had withdrawal symptoms. She is interested in getting further information about outpatient programs for maintaining sobriety. Objective Data Objective Data Vital Signs: Vital Signs Temp Pulse Resp BP Pulse Ox O2 Del Method 36.6 C 65 16 139/62 H 94 Room Air 09/15/25 06:42 09/15/25 06:42 09/15/25 06:42 09/15/25 06:42 09/15/25 06:42 09/15/25 06:42 Oxygen Delivery Method Room Air Weight: 84.368 kg Body Mass Index (BMI) 30.9 Lab / Micro Data 09/15/25 04:28 09/15/25 04:28 Labs: Laboratory Results - last 24 hr 09/14/25 17:06: WBC 3.8 L, RBC 4.16 L, Hgb 13.0, Hct 39.7, MCV 95.4, MCH 31.3, MCHC 32.7, RDW Std Deviation 51.9 H, RDW Coeff of Jerrod 14.7 H, Plt Count 185, MPV 9.8, Immature Gran % (Auto) 0.300, Neut % (Auto) 32.2 L, Lymph % (Auto) 56.9 H, Liberty % (Auto) 9.0, Eos % (Auto) 0.5, Baso % (Auto) 1.1 H, Absolute Neuts (auto) 1.2 L, Absolute Lymphs (auto) 2.14, Nucleated RBC % 0, PT 12.7, INR 0.9, Sodium 135, Potassium 3.8, Chloride 97 L, Carbon Dioxide 24.8, Anion Gap 13, BUN 6, Creatinine 0.73, Estim Creat Clear Calc 75.49, Est GFR (MDRD) Non-Af 91, B UN/Creatinine Ratio 8.1 L, Glucose 100 H, Calcium 8.7, Magnesium 1.9, Total Bilirubin 0.23, Direct Bilirubin 0.15, AST 55 H, ALT 40 H, Alkaline Phosphatase 80, Total Protein 6.4, Albumin 3.9, Globulin 2.5, Ethyl Alcohol 199.0 H 09/14/25 17:38: Urine Color Yellow, Urine Clarity Clear, Urine pH 7.0, Ur Specific Orwell 1.010, Urine Protein Negative, Urine Glucose (UA) Normal, Urine Ketones Negative, Urine Occult Blood Negative, Urine Nitrite Negative, Urine Bilirubin Negative, Urine Urobilinogen Normal, Ur Leukocyte Esterase Negative, Urine RBC Not Reportable, Urine WBC 0-5 SEEN, Ur Squamous Epith Cells 0-5 SEEN, Urine Bacteria RARE, Urine Mucus 0 SEEN, Urine Opiates Screen NEGATIVE, U Buprenorphine Qual NEGATIVE, Ur Oxycodone Screen NEGATIVE, Urine Methadone Screen NEGATIVE, Urine Fentanyl Screen NEGATIVE, Ur Barbiturates Screen NEGATIVE, Ur Phencyclidine Scrn NEGATIVE, Ur Amphetamines Screen NEGATIVE, U Benzodiazepines Scrn PRESUMPTIVE POSITIVE, Urine Cocaine Screen NEGATIVE, U Cannabinoids Screen NEGATIVE 09/15/25 04:28: WBC 4.7, RBC 4.11 L, Hgb 12.9, Hct 38.8, MCV 94.4, MCH 31.4, MCHC 33.2, RDW Std Deviation 50.7 H, RDW Coeff of Jerrod 14.6, Plt Count 187, MPV 10.0, Sodium 135, Potassium 4.1, Chloride 99, Carbon Dioxide 24.9, Anion Gap 11, BUN 9, Creatinine 0.74, Estim Creat Clear Calc 73.20, Est GFR (MDRD) Non-Af 89, BUN/Creatinine Ratio 11.6, Glucose 108 H, Calcium 9.2 Physical Exam Const alert and no apparent distress HEENT HEENT Narrative: Feeling okay. Resp normal respiratory effort, no retractions, no use of accessory muscles and clear to auscultation bilaterally Cardio regular rate, regular rhythm, S1 normal heart sound and S2 normal heart sound GI normal to inspection, nondistended, normoactive bowel sounds, soft to palpation, non-tender and non-distended Extremity normal to inspection and full ROM Neuro Sensorium / Orientation: awake and alert Assessment & Plan Assessment/Plan (1) Alcohol use disorder: (2) Alcohol intoxication: PLAN: Plan Alcohol abuse with acute intoxication and desire for detox * Patient drinking about a bottle of wine daily with hard liquor on some days as well. Last drink on day of admission. Was found on the floor at home by family acutely intoxicated. * Alcohol level 199 in ED. * However importantly, she is on diazepam 5 mg 3 times daily as needed for dysphagia with esophageal dysmotility as below. She has been on diazepam since January. Was instructed to take 5 mg 30 minutes before each meal, but she has not been taking this regularly because she has a poor appetite and does not eat 3 meals daily. Given this, I will place her on CIWA protocol and schedule diazepam 5 mg before meals while here. * Will not order fixed phenobarbital or Ativan taper. If patient has elevated CIWA scores despite scheduled diazepam, can order as needed Ativan for this. * addiction medicine to see * Patient remained stable at this time. She endorses that she has not had issues regards to withdrawal after abstaining from alcohol in the past. She does express desire to communicate with addiction medicine about programs that she could be involved with upon discharge. Chronic medical conditions: * Dysphagia with esophageal dysmotility, GERD? Follows with GI in [place], [place]. [facility] She was trialed on diazepam 5 mg 30 minutes before meals with good improvement in esophageal dysmotility symptoms. As above, has not taken diazepam regularly due to poor food intake and not eating 3 meals daily. Will schedule diazepam 5 mg 3 times daily AC while inpatient as above. Continue home PPI. * Anxiety/depression Patient with significant anxiety/depression since her by suicide about a year ago. She was pink slipped on hospital in [place] this summer for suicidal ideation and this was a poor experience. She denies any suicidal ideation at this time. From [facility] review, appears she was on escitalopram and bupropion at some point this year but they are not on her current med list. Patient does not believe she is taking them. No further inpatient treatment, will need close outpatient follow-up on discharge. * Hypertension/hyperlipidemia Mildly hypertensive to the 100s over 50s on admit. Okay to continue home Coreg but will hold home triamterene?hydrochlorothiazide for now, restart as needed. Continue home statin and fenofibrate. * Asthma? Stable on room air at rest, not in acute exacerbation. Continue home inhaler. * Chronic low back pain with muscle spasms? Reviewed [facility] records. She is not on narcotic pain medications due to history of chronic benzo use and alcohol abuse as above. She is on baclofen up to 3 times daily as needed for muscle spasms and was told clearly not to take this within 4 hours of taking her diazepam. Given concern for using scheduled diazepam as above and for patient not taking baclofen regularly, will hold baclofen at this time. Tylenol as needed for pain control. * History of gout? Continue home allopurinol. DVT prophylaxis: Lovenox CODE STATUS: Full code, verified Expected disposition: If patient remained stable overnight and after meeting with addiction medicine patient should be ready for discharge on the . Charges/Coding Visit Charges Inpatient E&M: 97718 Subs Hosp L1
[2025-09-15 09:39] VITALS: BP 132/68; PULSE 65; RESP 16; TEMP 36.8; O2SAT 92
[2025-09-15] MEDS: Magnesium Chloride 64 MG Delay Rel.Tablet 128 MG PO (09:42)
[2025-09-15] MEDS: Thiamine Hydrochloride 100 MG Tablet PO (09:43)
--- NOTE | 2025-09-15 13:06 | ADDICTION ---
Met with patient to complete RAMP assessments. Patient reports I don't drink that much, I need MH help, however did report she drinks daily. Last use occurred at approximately 2:00 PM on the , per her report. Patient denies any intravenous drug use. Patient was open to discussion but not forthcoming with information, however she did listen to the information given. Patient appeared groggy but was able to respond appropriately to assessment questions. Patient states some openness to follow up with MH counseling but is currently resistant to formal treatment recommendations. Will revisit treatment options and discuss addiction-related behaviors during tomorrow?s session.
[2025-09-15 16:32] VITALS: BP 142/65; PULSE 62; RESP 16; TEMP 36.8; O2SAT 93
--- NOTE | 2025-09-15 19:35 | NURSING ---
Sonido, Martin's son called and asked for an update. update given.
[2025-09-15 21:15] VITALS: BP 156/64; PULSE 62; RESP 16; TEMP 37.1; O2SAT 94
[2025-09-16] VITALS (7 sets, daily range): BP systolic 140–159; BP diastolic 62–80; PULSE 55–76; RESP 16–18; TEMP 36.6–37.1; O2SAT 91–95
[2025-09-16] MEDS: Magnesium Chloride 64 MG Delay Rel.Tablet 128 MG PO (08:03)
[2025-09-16] MEDS: Thiamine Hydrochloride 100 MG Tablet PO (08:04)
--- NOTE | 2025-09-16 08:32 | DCINST_ITS ---
Discharge Instructions DC O2, CPAP, BIPAP needs Home O2 Discharge instructions: No Dressing / Incision Discharge Activity: Return to Normal Activity Dressing / Incision Call your doctor if you observe: Fever of 101 or Higher, Shortness of breath, Dizziness, Fainting spells, Swelling in the ankles, Chest pain and Increased palpitations (irregular heartbeat) Follow Up Care Test Results: Test results from this visit will be discussed in further detail at your follow- up appointment, if applicable. Discharge Plan Admission Admit Date/Time: 09/14/25 18:25 Attending Provider: Asad Resendez Primary Care Provider: Fernie Paredes Consulting Providers: Edi Orozco; Monroe Vasquez; Asad Resendez; Indra Gracia Discharge Orders/Prescriptions Prescriptions: Continued magnesium oxide 400 MG tablet 400 mg PO DAILY omeprazole 20 MG capsule 20 mg PO DAILY Asmanex Twisthaler 220 MCG inhaler 220 mcg inhalation BID allopurinol 100 mg tablet 100 mg PO DAILY carvedilol 12.5 mg tablet 12.5 mg PO BID triamterene-hydrochlorothiazid 37.5-25 mg capsule 1 cap PO DAILY trazodone 100 mg tablet 100 mg PO QHS baclofen 10 mg tablet 5 - 10 mg PO TID PRN PRN (Reason: muscle spasm) pantoprazole 40 mg tablet,delayed release (DR/EC) 40 mg PO BID folic acid 1 mg tablet 1 mg PO DAILY diazepam 5 mg tablet 5 mg PO TID omega-3 acid ethyl esters 1 gram capsule 2 cap PO BID fenofibrate 160 mg tablet 160 mg PO DAILY cetirizine [24Hour Allergy] 10 mg tablet 10 mg PO DAILY PRN (Reason: allergies) lisinopril 5 mg tablet 5 mg PO DAILY Referrals / Follow Up: Fernie Paredes DO [Primary Care Provider, Family Practice] Care Physician,No Primary [Non-Staff, Medical] Disposition Disposition (needs filled in before D/C Order can be placed): Home, Self Care
--- NOTE | 2025-09-16 09:25 | PHA.DC.MR.R ---
Pharmacy ID Med Reconciliation Pharmacy Service has performed discharge medication reconciliation for this patient. The patient's discharge medication list was reviewed for discrepancies and discrepancies were resolved. Medications at Discharge Home Medications magnesium oxide 400 mg (241.3 mg magnesium) tablet 400 mg PO DAILY 04/08/15 omeprazole 20 mg capsule,delayed release 20 mg PO DAILY 04/08/15 mometasone 220 mcg/actuation(60 doses) breath activated powder inhaler (Asmanex Twisthaler) 220 mcg inhalation BID 02/04/16 allopurinol 100 mg tablet 100 mg PO DAILY 08/05/23 baclofen 10 mg tablet 5 - 10 mg PO TID PRN PRN muscle spasm 09/14/25 carvedilol 12.5 mg tablet 12.5 mg PO BID 09/14/25 cetirizine 10 mg tablet (24Hour Allergy) 10 mg PO DAILY PRN allergies 09/14/25 diazepam 5 mg tablet 5 mg PO TID 09/14/25 fenofibrate 160 mg tablet 160 mg PO DAILY 09/14/25 folic acid 1 mg tablet 1 mg PO DAILY 09/14/25 lisinopril 5 mg tablet 5 mg PO DAILY BLOOD PRESSURE 09/14/25 omega-3 acid ethyl esters 1 gram capsule 2 cap PO BID 09/14/25 pantoprazole 40 mg tablet,delayed release 40 mg PO BID 09/14/25 trazodone 100 mg tablet 100 mg PO QHS 09/14/25 triamterene 37.5 mg-hydrochlorothiazide 25 mg capsule 1 cap PO DAILY 09/14/25
--- NOTE | 2025-09-16 09:59 | CASEMGMT ---
Social Work- SW met with pt to complete SDOH assessment. SW introduced self and role; pt agreeable to meet. Pt reports no concerns from SDOH assessment. Pt reports that she recently has been attending hinduism and attending weekly counseling sessions at [facility]. Pt reports that she is not on any psychotropic medications at this time. Pt reports that she does not feel depressed, but feels that her brain is slosh. Pt reports no trouble sleeping or concentrating. Pt reports she is not as hungry as typically. Pt reports that she does not have a loss on interest in things, but that her ambition is low at times. SW and pt discussed recent traumas and coping skills that pt has or can utilize. Pt is interested in [facility] services for ETOH use and would like additional information. SW provided printables and updated RAMP coordinator. Pt denies any additional needs or concerns at this time. TIFF Pacheco
--- NOTE | 2025-09-16 11:27 | ADDICTION ---
Met with patient this morning to review follow-up plan. The patient expressed some ambivalence about discussing her challenges with alcohol use. She is receptive to pursuing outpatient counseling but perceives her concerns as primarily related to mental health rather than alcohol use. Provided appropriate resources for support. The patient inquired about inpatient treatment options but declined to initiate the admission process at this time.
--- NOTE | 2025-09-16 12:49 | DS.PCM_ITS ---
Providers Date of Admission: 09/14/25 Primary Care Physician: Dr. Fernie Paredes DO Reason For Visit: ALCOHOL DETOX Diagnosis Discharge Diagnosis (1) Alcohol use disorder: Status: Acute Code(s): F10.90 - Alcohol use, unspecified, uncomplicated (2) Alcohol intoxication: Status: Acute Code(s): F10.929 - Alcohol use, unspecified with intoxication, unspecified Medications at Discharge Home Medications magnesium oxide 400 mg (241.3 mg magnesium) tablet 400 mg PO DAILY 04/08/15 omeprazole 20 mg capsule,delayed release 20 mg PO DAILY 04/08/15 mometasone 220 mcg/actuation(60 doses) breath activated powder inhaler (Asmanex Twisthaler) 220 mcg inhalation BID 02/04/16 allopurinol 100 mg tablet 100 mg PO DAILY 08/05/23 baclofen 10 mg tablet 5 - 10 mg PO TID PRN PRN muscle spasm 09/14/25 carvedilol 12.5 mg tablet 12.5 mg PO BID 09/14/25 cetirizine 10 mg tablet (24Hour Allergy) 10 mg PO DAILY PRN allergies 09/14/25 diazepam 5 mg tablet 5 mg PO TID 09/14/25 fenofibrate 160 mg tablet 160 mg PO DAILY 09/14/25 folic acid 1 mg tablet 1 mg PO DAILY 09/14/25 lisinopril 5 mg tablet 5 mg PO DAILY BLOOD PRESSURE 09/14/25 omega-3 acid ethyl esters 1 gram capsule 2 cap PO BID 09/14/25 pantoprazole 40 mg tablet,delayed release 40 mg PO BID 09/14/25 trazodone 100 mg tablet 100 mg PO QHS 09/14/25 triamterene 37.5 mg-hydrochlorothiazide 25 mg capsule 1 cap PO DAILY 09/14/25 Hospital Course Operations None Procedures None Summary of Care Provided Minutes Spent on Discharge: 32 Hospital Course: Per HPI: FERNANDO GALEANO, is a 65 F who presented to [facility] ED on 09/14/2025 with alcohol abuse with acute intoxication and desire for detox. Patient lives at home alone, has family that lives nearby. Medical history significant for hypertension, hyperlipidemia, asthma, GERD, dysphagia with esophageal dysmotility and gout. Patient also has history of intermittent heavy alcohol use, has never gone through detox before. Sadly, her committed suicide within the past year. Patient was pink slipped to a facility in [place] over the summer for suicidal ideation, and per family this was a poor experience. Since then she has been at home and has been drinking fairly consistently. Reports that some days she will not start drinking until the evening and then drink a bottle of wine before bed. She does have days where she will start drinking during the day and will occasionally have hard liquor. She denies any history of alcohol withdrawal. Today family found the patient on the ground at home intoxicated, so they brought her to the ED for further evaluation. In the ED her alcohol level was 199. She was mildly hypertensive to the 100s over 50s, and normal sinus rhythm with heart rate in the 60s, afebrile and stable on room air at rest. CBC and BMP were benign. LFTs were very mildly elevated. ED physician discussed with patient and family, and patient was agreeable to coming into the hospital for detox. Hospitalist was then contacted for admission. I saw the patient at bedside in the ED, son and daughter were present. Patient was laying back in bed fairly comfortably and in no acute distress. Her speech was mildly slowed suspect due to degree of intoxication but she was alert and oriented x 3 and answering questions appropriately for me. Importantly, per [facility] report patient has been on diazepam 5 mg 3 times daily since January. On discussion with patient, she notes that her GI doctor put her on this for her dysphagia and esophageal dysmotility. I reviewed [facility] and her GI doctor in [place] did in fact trial her on diazepam 30 minutes before meals and patient had good improvement in symptoms, so she was then started on diazepam 3 times daily before meals. Per [facility] she has been filling this fairly regularly, but she notes she does not take it every day as she often does not have a strong appetite and does not eat 3 full meals. She reports taking her other home medications as prescribed. She denies any history of withdrawal symptoms in the past, but she and family note that she rarely goes more than a few days without drinking. No other acute concerns currently. Will be admitted for further management. Hospital Course: 1. Alcohol abuse requesting detox?65-year-old female presented to the hospital requesting detox from alcohol. She drinks about a bottle of wine every day as well as hard liquor on occasion. She does have psychiatry on the outpatient side but was requesting to discuss possible behavioral health outpatient resources. She is on Valium 5 mg 3 times daily for dysphagia therefore she was not started on any Ativan taper or phenobarbital and she did not have any significant CIWA scoring. I discussed with her the possibility for discharge today if she felt up to it and she requested to be discharged today and expressed understanding the risks and benefits of going home and would like to go home today. She was evaluated by [facility] who did offer her inpatient placement that she declined. 2. Essential hypertension, hyperlipidemia, chronic low back pain, asthma, gout, anxiety, depression, dysphagia with esophageal dysmotility, GERD are all chronic medical conditions which complicate her care. Her home medications were continued where appropriate Physical Exam Narrative General: Alert, Oriented x3, Cooperative, No apparent distress HEENT: Atraumatic, PERRLA, EOMI, Normocephalic Oral: Moist Mucosa Neck: Supple, No JVD Lungs: Clear to auscultation, Normal air movement, No rhonchi, No wheeze, No rales Cardiovascular: Regular rate, Regular Rhythm, Normal S1, Normal S2, No murmurs Abdomen: Soft, Non Tender, Non-Distended, No Hepato-splenomegaly Extremities: No edema, Capillary Refill Less than 3 Seconds Skin: No rashes, No breakdown Musculoskeletal: No Tenderness to Palpation of Joints or Extremities Neurological: No focal neurological deficits, moves all extremities Psych/Mental Status: Normal Affect, Appropriate Weight / BMI Weight Weight: 186 lb Body Mass Index (BMI) 30.9 ABG / Lab / Microbiology Data 09/15/25 04:28 09/15/25 04:28 D/C Instructions Call your doctor if you observe: Fever of 101 or Higher, Shortness of breath, Dizziness, Fainting spells, Swelling in the ankles, Chest pain and Increased palpitations (irregular heartbeat) DC O2, CPAP, BIPAP Needs Home O2 Discharge instructions: No Meaningful Use Info Meaningful Use Meaningful Use Diagnoses (Choose all that apply): None applicable Discharge Plan Admission Admit Date/Time: 09/14/25 18:25 Attending Provider: Asad Resendez Primary Care Provider: Fernie Paredes Consulting Providers: Edi Orozco; Monroe Vasquez; Asad Resendez; Indra Gracia Discharge Orders/Prescriptions Prescriptions: Continued magnesium oxide 400 MG tablet 400 mg PO DAILY omeprazole 20 MG capsule 20 mg PO DAILY Asmanex Twisthaler 220 MCG inhaler 220 mcg inhalation BID allopurinol 100 mg tablet 100 mg PO DAILY carvedilol 12.5 mg tablet 12.5 mg PO BID triamterene-hydrochlorothiazid 37.5-25 mg capsule 1 cap PO DAILY trazodone 100 mg tablet 100 mg PO QHS baclofen 10 mg tablet 5 - 10 mg PO TID PRN PRN (Reason: muscle spasm) pantoprazole 40 mg tablet,delayed release (DR/EC) 40 mg PO BID folic acid 1 mg tablet 1 mg PO DAILY diazepam 5 mg tablet 5 mg PO TID omega-3 acid ethyl esters 1 gram capsule 2 cap PO BID fenofibrate 160 mg tablet 160 mg PO DAILY cetirizine [24Hour Allergy] 10 mg tablet 10 mg PO DAILY PRN (Reason: allergies) lisinopril 5 mg tablet 5 mg PO DAILY Referrals / Follow Up: Fernie Paredes DO [Primary Care Provider, Family Practice] Care Physician,No Primary [Non-Staff, Medical] Disposition Disposition (needs filled in before D/C Order can be placed): Home, Self Care Charges/Coding Visit Charges Inpatient E&M: 45309 Disch Hosp >30min
--- NOTE | 2025-09-16 14:30 | CHAPLAIN ---
Type of Pastoral Visit ___ Initial Visit ___ Follow-up Visit ___ On-call Visit ___ General Patient Visit ___ Spiritual Assessment ___ Family Conference ___ Bereavement ___ Rapid Response ___ Code Blue ___ Other (describe below) Pastoral Care Referral From ___ Patient ___ Family ___ Nurse ___ Physician ___ Radio Intelligence Operator ___ Detail Sergeant ___ Other (describe below) Sacrament/Intervention ___ Active listening ___ Anointing ___ Sikh ___ Bereavement ___ Communion ___ Adina exploration ___ ___ Life review ___ Prayer ___ Reconciliation ___ Sacrament of Sick ___ Supportive presence ___ Wedding ___ Other (describe below) Pastoral Comments patient left before being seen by this senior scientist
== END 2025-09-16 13:10 | disposition home or self-care (01) | DRG 897 ==
LOC: ED 18:25 → MS3 18:38
PROVIDERS: Admitting Provider Hospitalist; Emergency Provider Emergency Medicine; PCP Family Medicine; Visit Provider Family Medicine
DX: F10.129 Alcohol abuse with intoxication, unspecified (principal); E66.811 Obesity, class 1; F32.A Depression, unspecified; I10 Essential (primary) hypertension; J45.909 Unspecified asthma, uncomplicated; F41.9 Anxiety disorder, unspecified; M10.9 Gout, unspecified; E78.5 Hyperlipidemia, unspecified; M54.50 Low back pain, unspecified; G89.29 Other chronic pain; Z79.899 Other long term (current) drug therapy; Z79.51 Long term (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 of inhaled steroids; Z68.32 Body mass index [BMI] 32.0-32.9, adult; Y90.6 Blood alcohol level of 120-199 mg/100 ml
CPT/HCPCS: 36415; 80048; 80076; 80307; 81001; 82077; 83735; 85025; 85027; 85610; 94640; 99284; A4216